=== PATIENT | female | born 2000 | race Caucasian/White ===

== ENCOUNTER 2023-09-04 13:45 | Outpatient (OUT) | payer OTHER, SELFPAY ==
[2023-09-04 14:26] LABS: HCG Quantitative <1 mIU/mL
== END 2023-09-04 13:46 | disposition home or self-care (01) ==
LOC: LAB 13:52
PROVIDERS: Visit Provider Obstetrics & Gynecology
DX: Z51.89 Encounter for other specified aftercare (principal); O03.9 Complete or unspecified spontaneous abortion without complication
CPT/HCPCS: 36415; 84702

== ENCOUNTER 2023-10-26 20:41 | Outpatient (REF) | payer OTHER, SELFPAY ==
--- OUTSIDE RECORDS SUMMARY | 2023-10-26 20:45 | XMS_ITS | CCD ---
Author Name Unknown Address [address] [facility] [address] [place] [address] Organization [facility] Care Team Providers Care Casino Surveillance Officer Name Role Phone REQUEST, DR NONE LISTED Primary Care Unavaila van SUAREZ, DR AMADOR Admitting Unavailable ERICK, DR AMADOR Attending Unavailable ERICK, DR AMADOR Consulting Unavailable Barb Woodard Unavailable Russ Vaughn MD Primary Care Provider [phone] RUSS VAUGHN Attending Unavailable RUSS VAUGHN Referring Unavailable RUSS VAUGHN Primary Care Unavailable CELINA PARKER Attending Unavailable CELINA PARKER Attending Unavailable Medications Current Medications Medication Drug Class(es) Dates Sig (Normalized) Sig (Original) hydrOXYzine pamoate 25 mg oral capsule (1 source) Antihistamine Start: 09-09-2023 take 1 capsule by mouth three times daily as needed for anxiety, then take 3 capsules by mouth once daily as needed for anxiety hydrOXYzine (VistariL) 25 mg capsule Indications: Generalized anxiety disorder Take 1 capsule (25 mg total) by mouth 3 (three) times a day as needed for anxiety. Max 3 per day 90 capsule 0 09/09/2023 Active metoclopramide 10 mg oral tablet (1 source) Dopamine-2 Receptor Antagonist Start: 07-22-2023 Reglan 10 MG 1 Tablet Orally 2-3 times per day prn nausea and vomiting Jul, Active omeprazole 20 mg delayed release oral capsule (1 source) Proton Pump Inhibitor take 1 capsule by mouth in the morning Omeprazole 20 MG TAKE 1 CAPSULE BY MOUTH IN THE MORNING Oral for 30 Days Active PARoxetine hydrochloride 20 mg oral tablet (2 sources) Serotonin Reuptake Inhibitor Start: 10-08-2023 take 1 tablet by mouth in the morning PARoxetine (PAXIL) 20 mg tablet Indications: Generalized anxiety disorder Take 1 tablet (20 mg total) by mouth in the morning. 90 tablet 2 10/08/2023 Active Start: 09-09-2023 End: 10-08-2023 take 1 tablet by mouth in the morning PARoxetine (PAXIL) 10 mg tablet Indications: Generalized anxiety disorder Take 1 tablet (10 mg total) by mouth in the morning. 30 tablet 2 09/09/2023 10/08/2023 Discontinued Completed/Discontinued Medications Medication Drug Class(es) Dates Sig (Normalized) Sig (Original) Ondansetron (1 source) Serotonin-3 Receptor Antagonist Start: 06-19-2023 Zofran 4 MG 1 tablet ODT tid prn 15 Jun, 2023 Not-Taking Problems Active Problems Problem Classification Problem Date Documented Da te Episodic/Chronic Abdominal pain (1 source) Unspecified abdominal pain; Translations: [UNSPECIFIED ABDOMINAL PAIN] Onset: 10-01-2022 Episodic Anxiety disorders (4 sources) Generalized anxiety disorder; Translations: [Generalized anxiety disorder] Onset: 02-06-2023 10-08-2023 Chronic Blindness and vision defects (1 source) Visual impairment; Translations: [Unspecified visual loss] Onset: 02-06-2023 02-06-2023 Chronic Esophageal disorders (2 sources) Gastro-esophageal reflux disease without esophagitis; Translations: [Gastroesophageal reflux disease] Onset: 10-01-2022 02-06-2023 Chronic Mood disorders (1 source) Depressive disorder; Translations: [Depression] Onset: 02-06-2023 02-06-2023 Chronic Nausea and vomiting (5 sources) Nausea with vomiting, unspecified; Translations: [NAUSEA WITH VOMITING UNSPECIFIED] Onset: 09-25-2022 Episodic Screening and history of mental health and substance abuse codes (1 source) Personal history of nicotine dependence; Translations: [PERSONAL HISTORY OF NICOTINE DEPEND] Onset: 10-01-2022 Episodic Substance-related disorders (1 source) Cannabis use, unspecified, uncomplicated; Translations: [CANNABIS USE UNS UNCOMPLICATED] Onset: 10-01-2022 Episodic Past or Other Problems Problem Classification Problem Date Documented Da te Episodic/Chronic Allergic reactions (1 source) Eczema; Translations: [Dermatitis, unspecified] Onset: 02-06-2023 02-06-2023 Episodic Mood disorders (1 source) Mood disorders Onset: 10-02-2022 2 Results Test Name Value Interpretation Reference Range Facil ity AMYLASEon 09-25-2022 Amylase [Catalytic activity/Vol] 56 U/L Normal 25-115 [facility] Comment on above: Performed By: #### A MY, CMP, LIPA #### [facility] [address] [address] [address] Hanh Cervantes CBC AUTO DIFFon 09-25-2022 BASO # 0.1 103/ul Normal 0.0-0.1 [facility] Comment on above: Performed By: #### C BC #### [facility] [address] [place] [address] Dr. Hanh Cervantes Basophils/100 WBC (Bld) 0.5 % Normal 0.2-2.0 [facility] Comment on above: Performed By: #### C BC #### [facility] [address] [place] [address] Dr. Hanh Cervantes EO # 0.1 103/ul Normal 0.0-0.7 [facility] Comment on above: Performed By: #### C BC #### [facility] [address] [place] [address] Dr. Hanh Cervantes Eosinophils/100 WBC (Bld) 0.5 % Critically low 0.9-7.0 [facility] Comment on above: Performed By: #### C BC #### [facility] [address] [place] [address] Dr. Hanh Cervantes Erythrocyte distribution width (RBC) [Ratio] 12.4 % Normal 11.0-15.0 [facility] Comment on above: Performed By: #### C BC #### [facility] [address] [place] [address] Dr. Hanh Cervantes Hematocrit (Bld) [Volume fraction] 42.1 % Normal 36.0-48.0 [facility] Comment on above: Performed By: #### C BC #### [facility] [address] [place] [address] Dr. Hanh Cervantes Hemoglobin (Bld) [Mass/Vol] 14.3 g/dL Normal 12.0-16.0 [facility] Comment on above: Performed By: #### C BC #### [facility] [address] [address] [address] Hanh Cervantes IG # 0.04 10e3/ul Critically high 0.00-0.03 [facility] Comment on above: Performed By: #### C BC #### [facility] [address] [place] [address] Dr. Hanh Cervantes IG % 0.3 % Normal 0.0-0.5 [facility] Comment on above: Performed By: #### C BC #### [facility] [address] [place] [address] Dr. Hanh Cervantes LYMPH # 1.1 103/ul Critically low 1.2-3.8 [facility] Comment on above: Performed By: #### C BC #### [facility] [address] [place] [address] Dr. Hanh Cervantes Lymphocytes/100 WBC (Bld) 9.7 % Critically low 20.5-60.0 [facility] Comment on above: Performed By: #### C BC #### [facility] [address] [place] [address] Dr. Hanh Cervantes MANUAL DIFF REQ NO Normal [facility] Comment on above: Performed By: #### C BC #### [facility] [address] [place] [address] Dr. Hanh Cervantes MCH (RBC) [Entitic mass] 28.9 pg Normal 26.7-34.0 [facility] Comment on above: Performed By: #### C BC #### [facility] [address] [place] [address] Dr. Hanh Cervantes MCHC (RBC) [Mass/Vol] 34.0 g/dL Normal 29.9-35.2 [facility] Comment on above: Performed By: #### C BC #### [facility] [address] [place] [address] Dr. Hanh Cervantes MCV (RBC) [Entitic vol] 85.2 fL Normal 81.0-99.0 [facility] Comment on above: Performed By: #### C BC #### [facility] [address] [address] [address] Hanh Cervantes MONO # 0.5 103/ul Normal 0.3-0.8 [facility] Comment on above: Performed By: #### C BC #### [facility] [address] [address] [address] Hanh Cervantes Monocytes/100 WBC (Bld) 4.4 % Normal 1.7-12.0 [facility] Comment on above: Performed By: #### C BC #### [facility] [address] [place] [address] Dr. Hanh Cervantes NEUT # 9.9 103/ul Critically high 1.4-6.5 [facility] Comment on above: Performed By: #### C BC #### [facility] [address] [place] [address] Dr. Hanh Cervantes Neutrophils/100 WBC (Bld) 84.6 % Critically high 43.0-75.0 [facility] Comment on above: Performed By: #### C BC #### [facility] [address] [place] [address] Dr. Hanh Cervantes Platelet mean volume (Bld) [Entitic vol] 10.1 fL Normal 9.5-13.5 [facility] Comment on above: Performed By: #### C BC #### [facility] [address] [place] [address] Dr. Hanh Cervantes PLT 368 103/ul Normal 150-450 [facility] Comment on above: Performed By: #### C BC #### [facility] [address] [place] [address] Dr. Hanh Cervantes RBC 4.94 106/ul Normal 4.20-5.40 [facility] Comment on above: Performed By: #### C BC #### [facility] [address] [place] [address] Dr. Hanh Cervantes WBC 11.7 103/ul Critically high 4.0-11.0 [facility] Comment on above: Performed By: #### C BC #### [facility] [address] [place] [address] Dr. Hanh Cervantes LIPASEon 09-25-2022 Lipase [Catalytic activity/Vol] 82.0 U/L Normal 73.0-393.0 [facility] Comment on above: Performed By: #### A MY, CMP, LIPA #### [facility] [address] [address] [address] Hanh Cervantes PROF 14(COMP METB)on 022 Albumin [Mass/Vol] 4.6 g/dL Normal 3.4-5.0 [facility] Comment on above: Performed By: #### A MY, CMP, LIPA #### [facility] [address] [address] [address] Hanh Cervantes Albumin/Globulin [Mass ratio] 1.1 {ratio} Normal [facility] Comment on above: Performed By: #### A MY, CMP, LIPA #### [facility] [address] [address] [address] Hanh Cervantes ALP [Catalytic activity/Vol] 88 U/L Normal 46-116 [facility] Comment on above: Performed By: #### A MY, CMP, LIPA #### [facility] [address] [address] [address] Hanh Cervantes ALT [Catalytic activity/Vol] 45 U/L Normal 14-59 [facility] Comment on above: Performed By: #### A MY, CMP, LIPA #### [facility] [address] [address] [address] Hanh Cervantes Anion gap [Moles/Vol] 14.7 mmol/L Normal [facility] Comment on above: Performed By: #### A MY, CMP, LIPA #### [facility] [address] [address] [address] Hanh Cervantes AST [Catalytic activity/Vol] 24 U/L Normal 15-37 [facility] Comment on above: Performed By: #### A MY, CMP, LIPA #### [facility] [address] [address] [address] Hanh Cervantes Bilirubin [Mass/Vol] 0.6 mg/dL Normal 0.2-1.0 [facility] Comment on above: Performed By: #### A MY, CMP, LIPA #### [facility] [address] [address] [address] Hanh Cervantes Calcium [Mass/Vol] 9.4 mg/dL Normal 8.5-10.1 [facility] Comment on above: Performed By: #### A MY, CMP, LIPA #### [facility] [address] [place] [address] Dr. Hanh Cervantes Chloride [Moles/Vol] 100 mmol/L Normal 98-107 [facility] Comment on above: Performed By: #### A MY, CMP, LIPA #### [facility] [address] [place] [address] Dr. Hanh Cervantes CO2 [Moles/Vol] 25.9 mmol/L Normal 21.0-32.0 [facility] Comment on above: Performed By: #### A MY, CMP, LIPA #### [facility] [address] [place] [address] Dr. Hanh Cervantes Creatinine [Mass/Vol] 0.78 mg/dL Normal 0.55-1.02 [facility] Comment on above: Performed By: #### A MY, CMP, LIPA #### [facility] [address] [place] [address] Dr. Hanh Cervantes EGFR-AF ALBANIAN >60 Normal >=60 [facility] Comment on above: Performed By: #### A MY, CMP, LIPA #### [facility] [address] [place] [address] Dr. Hanh Cervantes EGFR-NON AF ALBANIAN >60 Normal >=60 [facility] Comment on above: Performed By: #### A MY, CMP, LIPA #### [facility] [address] [place] [address] Dr. Hanh Cervantes Globulin (S) [Mass/Vol] 4.3 g/dL Normal [facility] Comment on above: Performed By: #### A MY, CMP, LIPA #### [facility] [address] [place] [address] Dr. Hanh Cervantes Glucose [Mass/Vol] 117 mg/dL Critically high 74-106 [facility] Comment on above: Performed By: #### A MY, CMP, LIPA #### [facility] [address] [address] [address] Hanh Cervantes Potassium [Moles/Vol] 3.6 mmol/L Normal 3.5-5.1 [facility] Comment on above: Performed By: #### A MY, CMP, LIPA #### [facility] [address] [address] [address] Hanh Cervantes Protein [Mass/Vol] 8.9 g/dL Critically high 6.4-8.2 [facility] Comment on above: Performed By: #### A MY, CMP, LIPA #### [facility] [address] [address] [address] Hanh Cervantes Sodium [Moles/Vol] 137 mmol/L Normal 136-145 [facility] Comment on above: Performed By: #### A MY, CMP, LIPA #### [facility] [address] [address] [address] Hanh Cervantes Urea nitrogen [Mass/Vol] 9.0 mg/dL Normal 7.0-18.0 [facility] Comment on above: Performed By: #### A MY, CMP, LIPA #### [facility] [address] [address] [address] Hanh Cervantes Urea nitrogen/Creatinine [Mass ratio] 11.5 mg/mg Normal [facility] Comment on above: Performed By: #### A MY, CMP, LIPA #### [facility] [address] [address] [address] Hanh Cervantes Vital Signs Date Time Vital Sign Value Performing Clinician Facility 07-22-2023 16:40-0400 Body height 160.02 cm Barb Woodard Other [facility] 07-22-2023 16:40-0400 Body mass index (BMI) [Ratio] 27.99 kg/m2 Barb Woodard Other [facility] 07-22-2023 16:40-0400 Body temperature 99.7 [degF] Barb Woodard Other [facility] 07-22-2023 16:40-0400 Body weight 71.67 kg Barb Woodard Other [facility] 07-22-2023 16:40-0400 Diastolic blood pressure 83 mm[Hg] Barb Woodard Other [facility] 07-22-2023 16:40-0400 Respiratory rate 18 /min Barb Woodard Other [facility] Other 07-22-2023 16:40-0400 SaO2% (BldA) [Mass fraction] 99 % Barb Woodard Other [facility] Other 07-22-2023 16:40-0400 Systolic blood pressure 119 mm[Hg] Barb Woodard Other [facility] Other Encounters Encounter Date Encounter Type Care Provider Facility Start: 10-26-2023 End: 10-26-2023 ambulatory CELINA KEITH Not Available Start: 10-08-2023 ambulatory [facility] Start: 10-08-2023 End: 10-08-2023 Office outpatient visit 15 minutes Russ Vaughn MD Work Phone: [facility] Comment on above: Generalized anxiety disorder Start: 08-31-2023 End: 08-31-2023 ambulatory CELINA KEITH Not Available Start: 07-22-2023 End: 07-22-2023 ambulatory Barb Yamilet Other [facility] Start: 07-22-2023 Office outpatient vi sit 15 minutes Barb Woodard [facility] Start: 09-25-2022 End: 09-25-[address] NONE LISTED REQUEST Facility: Procedures Date Procedure Procedure Detail Performing Clinician Start: 10-02-2022 Adult depression screening assessment Russ Vaughn MD Work Phone: Plan of Treatment Date Care Activity Detail Author Start: 05-18-2027 DTaP,Tdap and Td Vaccines (8 - Td or Tdap) DTaP,Tdap and Td Vaccines (8 - Td or Tdap) [facility] Start: 09-09-2024 Tobacco Screening Tobacco Screening [facility] Start: 08-25-2024 Adult BMI Screening Adult BMI Screen ing [facility] Start: 10-02-2023 Depression Screening Depression Scre ening [facility] Start: 06-05-2023 Influenza vaccination Influenza Vacc ine [facility] Start: 2021 Screening for malign ant neoplasm of cervix Pap Smear [facility] Start: 2018 Adult BMI Follow Up Plan Adult BMI Follow Up Plan [facility] Start: 2000 Screening for Chlamy yuli trachomatis Chlamydia Screening [facility] Immunizations Immunization Date Immunization Notes Care Provider Fa maicol 05-18-2017 meningococcal polysaccharide (groups A, C, Y and W-135) diphtheria toxoid conjugate vaccine (MCV4P) Russ Vaughn MD Work Phone: [facility] 05-18-2017 tetanus toxoid, redu al diphtheria toxoid, and acellular pertussis vaccine, adsorbed Russ Vaughn MD Work Phone: [facility] 06-16-2012 hepatitis A vaccine, pediatric/adolescent dosage, 2 dose schedule Russ Vaughn MD Work Phone: [facility] 06-16-2012 human papilloma viru s vaccine, quadrivalent Russ Vaughn MD Work Phone: [facility] 06-16-2012 tetanus toxoid, redu al diphtheria toxoid, and acellular pertussis vaccine, adsorbed Russ Vaughn MD Work Phone: [facility] 05-08-2005 diphtheria, tetanus toxoids and acellular pertussis vaccine, unspecified formulation Russ Vaughn MD Work Phone: [facility] 05-08-2005 measles, mumps and rubella virus vaccine Russ Vaughn MD Work Phone: [facility] 05-08-2005 pneumococcal conjuga te vaccine, 7 valent Russ Vaughn MD Work Phone: [facility] 05-08-2005 poliovirus vaccine, inactivated Russ Vaughn MD Work Phone: [facility] 05-30-2003 varicella virus vaccine Kris Vaughn MD Work Phone: [facility] Work Phone: 04-14-2001 diphtheria, tetanus toxoids and acellular pertussis vaccine, unspecified formulation Russ Vaughn MD Work Phone: [facility] 04-14-2001 haemophilus influenz ae type b vaccine, conjugate unspecified formulation Russ Vaughn MD Work Phone: [facility] 04-14-2001 measles, mumps and rubella virus vaccine Russ Vaughn MD Work Phone: [facility] 2000 diphtheria, tetanus toxoids and acellular pertussis vaccine, unspecified formulation Russ Vaughn MD Work Phone: [facility] 2000 hepatitis B vaccine, pediatric or pediatric/adolescent dosage Russ Vaughn MD Work Phone: [facility] 2000 poliovirus vaccine, inactivated Russ Vaughn MD Work Phone: [facility] 2000 diphtheria, tetanus toxoids and acellular pertussis vaccine, unspecified formulation Russ Vaughn MD Work Phone: [facility] 2000 haemophilus influenz ae type b vaccine, conjugate unspecified formulation Russ Vaughn MD Work Phone: [facility] 2000 hepatitis B vaccine, pediatric or pediatric/adolescent dosage Russ Vaughn MD Work Phone: [facility] 2000 poliovirus vaccine, inactivated Russ Vaughn MD Work Phone: [facility] 2000 diphtheria, tetanus toxoids and acellular pertussis vaccine, unspecified formulation Russ Vaughn MD Work Phone: [facility] 2000 haemophilus influenz ae type b vaccine, conjugate unspecified formulation Russ Vaughn MD Work Phone: [facility] 2000 hepatitis B vaccine, pediatric or pediatric/adolescent dosage Russ Vaughn MD Work Phone: [facility] 2000 poliovirus vaccine, unspecified formulation Russ Vaughn MD Work Phone: [facility] 2000 hepatitis B vaccine, pediatric or pediatric/adolescent dosage Russ Vaughn MD Work Phone: [facility] NEGATED: Highlighted row has not occurred!10-16-2022 Influenza Vaccine, Quadrivalent, Adjuvanted Russ Vaughn MD Work Phone: [facility] Comment on above: Deferred: Patient de cision Payers Date Payer Category Payer Private Health Insurance [id number] 2022 Private Health Insurance [facility] [id number] 2022-Present [phone] [address] [address] [place] [address] [id number] 2000 Unknown [id number] 2000 Unknown [id number] 2000 Unknown [id number] 1974 Unknown [id number] 1959 Self-pay Social History Date Type Detail Facility Unknown if ever smoked [facility] Other Start: 09-09-2023 End: 10-08-2023 Sex Assigned At [facility] Start: 10-02-2022 Tobacco smoking stat [facility] Ex-smoker [facility] End: 10-05-2020 History of tobacco use Current smoker [facility] End: 10-05-2020 History of tobacco use Cigarette Smoker [facility] Start: 10-02-2022 Tobacco use and exposure Smokeless tobacco non-user [facility] Start: 10-08-2023 Alcohol intake Current drinke r of alcohol (finding) [facility] Start: 09-09-2023 End: 10-08-2023 History of Social function [facility] How hard is it for y ou to pay for the very basics like food, housing, medical care, and heating Not very hard [facility] Adolescent depressio n screening assessment 0 [facility] Start: 10-02-2022 Alcohol Comment rarely [facility] Start: 2000 Sex Assigned At Not on file P [facility] History of Present illness Narrative 10-08-2023 Russ Vaughn MD - 10/08/2023 7:45 AM EST Note Date & Type Note Facility 10-08-2023 History of Presen t illness Narrative Images from the original note were not included. [address] [place] [id number] Patient: Yolanda Villanueva Date of : 2000 Encounter Date: 10/08/2023 SUBJECTIVE: Chief Complaint: Chief Complaint Patient presents with Anxiety Patient ID: Yolanda Villanueva is a 23 y.o. female. Here today for interval anxiety and mood follow-up No acute concerns, has been adherent to her Paxil 10 mg q.day. Since last month has only needed hydroxyzine twice and helped subside the anxiety symptoms. Initially noticed Paxil to be slightly activating in now providing great benefit in improving her sleep and mood. The following portions of the patient's history were reviewed and updated as appropriate: allergies, current medications, past family history, past medical history, past social history, past surgical history and problem list. PHYSICAL EXAMINATION: There were no vitals filed for this visit. Physical Exam Constitutional: Appearance: She is well-developed. She is not ill-appearing. HENT: Head: Normocephalic and atraumatic. Nose: Nose normal. Eyes: General: No scleral icterus. Extraocular Movements: Extraocular movements intact. Pupils: Pupils are equal, round, and reactive to light. Musculoskeletal: Cervical back: Normal range of motion. Neurological: Mental Status: She is alert and oriented to person, place, and time. Psychiatric: Mood and Affect: Mood normal. Behavior: Behavior normal. Thought Content: Thought content normal. Judgment: Judgment normal. ASSESSMENT/PLAN: Yolanda was seen today for anxiety. Diagnoses and all orders for this visit: Generalized anxiety disorder - PARoxetine (PAXIL) 20 mg tablet; Take 1 tablet (20 mg total) by mouth in the morning. Recently started Paxil September 2023, anxiety and mood symptoms improving. Increase Paxil from 10 to 20 mg today Follow-up in 3 months or sooner if needed. Video Visit via Real-time Synchronous Audiovisual Provider Location: [facility] [address] [place] [id number] Patient Location: Patient's home Video Visit Consent Statement: I discussed risks, benefits, and alternatives of a real-time synchronous audiovisual consultation with the patient (and any accompanying persons) including the risks that the patient's personal health details and medical records will be discussed over real-time, synchronous, interactive video/audio/telecommunication technology, the visit will not be recorded without the express consent of both the provider and the patient, and that there are some limitations compared to [id number] evaluations. The patient consented to the presence of additional virtual and/or in-person participants. We elected to proceed. RUSS VAUGHN MD Family Medicine Physician [facility] / [facility] 10/08/23 This note was completed with voice recognition software. The document was reviewed for errors however some may still be present. Please do not hesitate to contact/Epic msg the author to verify any questions/concerns. documented in this encounter [facility] Evaluation note 07-22-2023 Note Date & Type Note Facility 07-22-2023 Evaluation note Encounter Date Diagnosis Assessment Notes Jul, Nausea and vomiting, unspecified vomiting type (ICD-10 - R11.2) Drink plenty fluids, get plenty of rest. Take the Reglan as prescribed as needed for nausea and vomiting. Follow-up with your GI specialist as soon as possible. Go to the ER for worsening symptoms or concerns. May return to use work tomorrow. Patient is instructed that she needs to follow-up with GI. Patient verbalizes understanding states she has been having difficulty getting time off work to go to the doctor. Patient declines urinalysis, declines test, denies suspicion of [facility] Other Evaluation note Note Date & Type Note Facility Evaluation note Diagnosis Generalized anxiety disorder documented in this encounter [facility] History general Narrative - Reported Note Date & Type Note Facility History general Narrative - Reported Type Medical History Hiatal hernia Medical History ulcers Surgical History double scope 2022 [facility] Other Instructions Note Date & Type Note Facility Instructions Not on filedocumented in this en counter [facility] Summary Purpose Family History No Family History Records FoundNo Family History Records FoundNo Family History Records Found Advance Directives No Advanced Directives Records FoundNo Advanced Directives Records FoundNo Advanced Directives Records Found Additional Source Comments INFORMATION SOURCE (unrecogn ized section and content) DATE CREATED AUTHOR 10/01/2022 [facility] DATE CREATED AUTHOR AUTHOR'S ORGANIZ ATION 10/12/2023 [facility] DATE CREATED AUTHOR AUTHOR'S ORGANIZ ATION 10/26/2023 [facility] EPIC REASON FOR VISIT (unrecogniz ed section and content) Reason Comments Anxiety Care Teams (unrecognized sec tion and content) [employer] Surveillance Officer Relationship Specialty Start Date End Date Russ Vaughn MD [address] [address] PCP - General Internal Medicine 04/10/23 FOR RECORDS PERTAINING TO PATIENTS WHO ARE OR HAVE BEEN ENROLLED IN A CHEMICAL DEPENDENCY/SUBSTANCEABUSE PROGRAM, SOME INFORMATION MAY BE OMITTED. This clinical summary was aggregated from multiple sources. Caution should be exercised in using it in the provision of clinical care. This summary normalizes information from multiple sources, and as a consequence, information in this document may materially change the coding, format and clinical context of patient data. In addition, data may be omitted in some cases. CLINICAL DECISIONS SHOULD BE BASED ON THE PRIMARY CLINICAL RECORDS. [employer] [facility]. provides no warranty or guarantee of the accuracy or completeness of information in this document.
[2023-10-29 13:10] LABS: Age Gdln ACOG Testing Note (.); IGP, rfx Aptima HPV ASCU Note (.)
== END 2023-10-26 20:42 | disposition home or self-care (01) ==
LOC: LAB 20:41
PROVIDERS: Visit Provider Obstetrics & Gynecology
DX: Z01.419 Encounter for gynecological examination (general) (routine) without abnormal findings (principal)
CPT/HCPCS: G0145

== ENCOUNTER 2024-02-15 14:11 | Outpatient (OUT) | payer OTHER, SELFPAY ==
--- OUTSIDE RECORDS SUMMARY | 2024-02-15 14:23 | XMS_ITS | CCD ---
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 Name Role Phone REQUEST, DR NONE LISTED Primary Care Unavaila van SUAREZ, DR AMADOR Admitting Unavailable ERICK, DR AMADOR Attending Unavailable ERICK, DR AMADOR Consulting Unavailable Barb Woodard Unavailable Russ Vaughn MD Primary Care Provider [phone] Russ Vaughn MD Primary Care Provider SHARON VASQUEZ Attending Unavailable RODERICK, MUHAMID M Referring Unavailable RODERICK, MUHAMID M Primary Care Unavailable RODERICK, MUHAMID M Attending Unavailable RODERICK, MUHAMID M Referring Unavailable RODERICK, MUHAMID M Primary Care Unavailable RODERICK, MUHAMID M Attending Unavailable RODERICK, MUHAMID M Referring Unavailable RODERICK, MUHAMID M Primary Care Unavailable CEE JIANG Referring Unavailable CEE JIANG Attending Unavailable RODERICK, MUHAMID M Primary Care Unavailable KAITLYNN KRAMER Attending Unavailable KOSTA KEYES Attending Unavailable KOSTA KEYES Referring Unavailable RODERICK, MUHAMID M Primary Care Unavailable RODERICK, MUHAMID M Primary Care Unavailable HITESH WESTON Attending Unav ailable RODERICK, MUHAMID M Referring Unavailable RODERICK, MUHAMID M Primary Care Unavailable MEGHA SHARMA Attending Unavailable KOSTA KEYES Referring Unavailable RODERICK, MUHAMID M Primary Care Unavailable CELINA PARKER Attending Unavailable CELINA PARKER Attending Unavailable CELINA PARKER Attending Unavailable Medications Current Medications Medication Drug Class(es) Dates Sig (Normalized) Sig (Original) cyclobenzaprine hydrochloride 10 mg oral tablet (1 source) Muscle Relaxant Start: 4 take 1 tablet by mouth twice daily as needed for muscle spasms cyclobenzaprine (FLEXERIL) 10 mg tablet Take 1 tablet (10 mg total) by mouth 2 (two) times a day as needed for muscle spasms. 10 tablet 0 01/06/2024 Active hydrOXYzine pamoate 25 mg oral capsule (4 sources) Antihistamine Start: 3 take 1 capsule by mouth three times daily as needed for anxiety, then take 3 capsules by mouth once daily as needed for anxiety hydrOXYzine (VistariL) 25 mg capsule Indications: Generalized anxiety disorder Take 1 capsule (25 mg total) by mouth 3 (three) times a day as needed for anxiety. Max 3 per day 90 capsule 0 09/09/2023 Active ibuprofen 800 mg oral tablet (1 source) Nonsteroidal Anti-inflammatory Drug Start: 4 take 1 tablet by mouth every eight hours as needed for pain ibuprofen (MOTRIN) 800 mg tablet Take 1 tablet (800 mg total) by mouth every 8 (eight) hours as needed for pain. 21 tablet 0 01/06/2024 Active lidocaine 0.05 mg/mg medicated patch (1 source) Antiarrhythmic, Amide Local Anesthetic Start: 4 apply 1 dose transdermal route once daily, then apply 1 dose transdermal route every twelve hours lidocaine (LIDODERM) 5 % Place 1 patch on the skin daily. Remove & Discard patch within 12 hours or as directed by MD 30 patch 0 01/06/2024 Active methylPREDNISolone (1 source) Corticosteroid Start: 4 methylPREDNISolone (MEDROL, PENELOPE,) 4 mg tablet follow package directions 21 tablet 0 01/06/2024 Active metoclopramide 10 mg oral tablet (1 source) Dopamine-2 Receptor Antagonist Start: 3 Reglan 10 MG 1 Tablet Orally 2-3 times per day prn nausea and vomiting Jul, Active omeprazole 20 mg delayed release oral capsule (1 source) Proton Pump Inhibitor take 1 capsule by mouth in the morning Omeprazole 20 MG TAKE 1 CAPSULE BY MOUTH IN THE MORNING Oral for 30 Days Active PARoxetine hydrochloride 40 mg oral tablet (6 sources) Serotonin Reuptake Inhibitor Start: 4 End: 4 take 1 tablet by mouth in the morning PARoxetine (PAXIL) 40 mg tablet Indications: Depression, unspecified depression type Take 1 tablet (40 mg total) by mouth in the morning. 90 tablet 2 11/24/2023 Active Start: 10-08-2023 take 1 tablet by ken th in the morning PARoxetine (PAXIL) 20 mg [...] morning. 30 tablet 2 09/09/2023 10/08/2023 Discontinued tiZANidine 4 mg oral tablet (1 source) Central alpha-2 Adrenergic Agonist Start: 01-07-2024 tiZANidine (ZANAFLEX) 4 mg tablet Indications: Seizure (CMS-HCC) , Muscle cramp Use 1 tab each night scheduled. If still having muscle cramps spasm can have 1 tab in day as needed. 60 tablet 0 01/07/2024 Active 24 hr venlafaxine 37.5 mg extended release oral capsule (3 sources) Serotonin and Norepinephrine Reuptake Inhibitor Start: 11-24-2023 take 1 capsule by mouth every twenty-four hours in the morning venlafaxine XR (EFFEXOR XR) 37.5 mg 24 hr capsule Indications: Anxiety Take 1 capsule (37.5 mg total) by mouth in the morning. 90 capsule 0 11/24/2023 Active Completed/Discontinued Medications Medication Drug Class(es) Dates Sig (Normalized) Sig (Original) Ondansetron (1 source) Serotonin-3 Receptor Antagonist Start: 06-19-2023 Zofran 4 MG 1 tablet ODT tid prn 15 Jun, 2023 Not-Taking Problems Active Problems Problem Classification Problem Date Documented Da te Episodic/Chronic Abdominal pain (1 source) Unspecified abdominal pain; Translations: [UNSPECIFIED ABDOMINAL PAIN] Onset: 10-01-2022 Episodic Anxiety disorders (10 sources) Generalized anxiety disorder; Translations: [Generalized anxiety disorder] Onset: 02-06-2023 10-08-2023 Chronic Blindness and vision defects (4 sources) Visual impairment; Translations: [Unspecified visual loss] Onset: 02-06-2023 02-06-2023 Chronic Epilepsy; convulsions (1 source) Epilepsy, unspecified, not intractable, without status epilepticus; Translations: [Epilepsy, unspecified, not intractable, without status epilepticus] Onset: 01-29-2024 Chronic Epilepsy; convulsions (5 sources) Seizure; Translations: [Unspecified convulsions] Onset: 12-27-2023 01-07-2024 Episodic Esophageal disorders (6 sources) Gastro-esophageal reflux disease without esophagitis; Translations: [Gastroesophageal reflux disease] Onset: 10-01-2022 02-06-2023 Chronic Mood disorders (5 sources) Depressive disorder; Translations: [Depression] Onset: 02-06-2023 02-06-2023 Chronic Mood disorders (6 sources) Mood disorders; Translations: [Depression, unspecified] Onset: 10-02-2022 Resolved: 11-24-2023 10-02-2022 Nausea and vomiting (5 sources) Nausea with vomiting, unspecified; Translations: [NAUSEA WITH VOMITING UNSPECIFIED] Onset: 09-25-2022 Episodic Other connective tissue disease (1 source) Cramp; Translations: [Cramp and spasm] 01-07-2024 Episodic Other connective tissue disease (1 source) Cramp and spasm; Translations: [Cramp and spasm] Onset: 01-11-2024 Episodic Screening and history of mental health and substance abuse codes (1 source) Personal history of nicotine dependence; Translations: [PERSONAL HISTORY OF NICOTINE DEPEND] Onset: 10-01-2022 Episodic Spondylosis; intervertebral disc disorders; other back problems (4 sources) Lumbago with sciatica, left side; Translations: [Sciatica, left side] Onset: 01-06-2024 Episodic Substance-related disorders (1 source) Cannabis use, unspecified, uncomplicated; Translations: [CANNABIS USE UNS UNCOMPLICATED] Onset: 10-01-2022 Episodic Unclassified (1 source) Medication Problem Onset: 11-24-2023 Unclassified (1 source) New Patient Onset: 01-29-2024 Unclassified (1 source) Seizure - New Onset Onset: 12-27-2023 Unclassified (1 source) EMS Onset: 12-27-2023 Past or Other Problems Problem Classification Problem Date Documented Da te Episodic/Chronic Allergic reactions (5 sources) Eczema; Translations: [Dermatitis, unspecified] Onset: 02-06-2023 02-06-2023 Episodic Results Test Name Value Interpretation Reference Range Facility CBC AND AUTO DIFFon 01-11-20 ABSOLUTE BASOPHIL 0.1 X10E9/L Normal 0.0-0.2 [facility] Comment on above: Performed By: #### N UM #### [facility] ([id number]) [address] [place] [address] 97839 ABSOLUTE NEUTROPHIL 7.3 X10E9/L High 1.5-6.6 [facility] Comment on above: Performed By: #### N UM #### [facility] ([id number]) [address] [place] [address] 70188 Basophils/100 WBC (Bld) 0.8 % Normal [facility] Comment on above: Performed By: #### N UM #### [facility] ([id number]) [address] [place] [address] 72293 Eosinophils (Bld) [#/Vol] 0.7 10*3/uL High 0.0-0.4 [facility] Comment on above: Performed By: #### N UM #### [facility] ([id number]) [address] [place] [address] 42281 Eosinophils/100 WBC (Bld) 7.2 % Normal [facility] Comment on above: Performed By: #### N UM #### [facility] ([id number]) [address] [place] [address] 91387 Erythrocyte distribution width (RBC) [Ratio] 13.7 % Normal 11.5-15.0 [facility] Comment on above: Performed By: #### N UM #### [facility] ([id number]) [address] [place] [address] 23921 Hematocrit (Bld) [Volume fraction] 42.5 % Normal 35-47 [facility] Comment on above: Performed By: #### N UM #### [facility] ([id number]) [address] [place] [address] 47980 Hemoglobin (Bld) [Mass/Vol] 14.5 g/dL Normal 11.7-15.5 [facility] Comment on above: Performed By: #### N UM #### [facility] ([id number]) [address] [place] [address] 57063 Lymphocytes (Bld) [#/Vol] 1.4 10*3/uL Normal 1.0-3.5 [facility] Comment on above: Performed By: #### N UM #### [facility] ([id number]) [address] [place] [address] 61821 Lymphocytes/100 WBC (Bld) 14.2 % Normal [facility] Comment on above: Performed By: #### N UM #### [facility] ([id number]) [address] [place] [address] 08495 MCH (RBC) [Entitic mass] 29.5 pg Normal 27-34 [facility] Comment on above: Performed By: #### N UM #### [facility] ([id number]) [address] [place] [address] 81709 MCHC (RBC) [Mass/Vol] 34.1 g/dL Normal 32-36 [facility] Comment on above: Performed By: #### N UM #### [facility] ([id number]) [address] [place] [address] 29774 MCV (RBC) [Entitic vol] 86 fL Normal 80-100 [facility] Comment on above: Performed By: #### N UM #### [facility] ([id number]) [address] [place] [address] 25255 Monocytes (Bld) [#/Vol] 0.5 10*3/uL Normal 0-0.9 [facility] Comment on above: Performed By: #### N UM #### [facility] ([id number]) [address] [place] [address] 40749 Monocytes/100 WBC (Bld) 5.5 % Normal [facility] Comment on above: Performed By: #### N UM #### [facility] ([id number]) [address] [place] [address] 29676 Neutrophils/100 WBC (Bld) 72.3 % Normal [facility] Comment on above: Performed By: #### N UM #### [facility] ([id number]) [address] [place] [address] 24726 Platelet mean volume (Bld) [Entitic vol] 8.0 fL Normal 7-12 [facility] Comment on above: Performed By: #### N UM #### [facility] ([id number]) [address] [place] [address] 27777 Platelets (Bld) [#/Vol] 362 10*3/uL Normal 150-450 [facility] Comment on above: Performed By: #### N UM #### [facility] ([id number]) [address] [place] [address] 50391 RBC COUNT 4.93 X10E12/L Normal 3.80-5.20 [facility] Comment on above: Performed By: #### N UM #### [facility] ([id number]) [address] [place] [address] 68495 WBC (Bld) [#/Vol] 10.0 10*3/uL Normal 4.0-11.0 [facility] Comment on above: Performed By: #### N UM #### [facility] ([id number]) [address] [place] [address] 59737 CK [Catalytic activity/Vol]o n 01-11-2024 CPK 53 U/L Normal 24-170 [facility] Comment on above: Performed By: #### C BCA, CMP, 5643-2, 80629-4, 53069-0, THYR #### [facility] ([id number]) [address] [place] [address] 88507 COMPREHENSIVE METABOLIC PANE Elvin 01-11-2024 Albumin [Mass/Vol] 4.9 g/dL Normal 3.2-5.3 [facility] Comment on above: Performed By: #### N UM #### [facility] ([id number]) [address] [place] [address] 95246 ALP [Catalytic activity/Vol] 83 U/L Normal 39-130 [facility] Comment on above: Performed By: #### N UM #### [facility] ([id number]) [address] [place] [address] 54327 ALT [Catalytic activity/Vol] 104 U/L High 0-31 [facility] Comment on above: Performed By: #### N UM #### [facility] ([id number]) [address] [place] [address] 19995 Anion gap [Moles/Vol] 10 mmol/L Normal 5-15 [facility] Comment on above: Performed By: #### N UM #### [facility] ([id number]) [address] [place] [address] 12418 AST [Catalytic activity/Vol] 48 U/L High 0-41 [facility] Comment on above: Performed By: #### N UM #### [facility] ([id number]) [address] [place] [address] 92294 Bilirubin [Mass/Vol] 0.5 mg/dL Normal 0.3-1.2 [facility] Comment on above: Performed By: #### N UM #### [facility] ([id number]) [address] [place] [address] 61190 Calcium [Mass/Vol] 9.8 mg/dL Normal 8.5-10.5 [facility] Comment on above: Performed By: #### N UM #### [facility] ([id number]) [address] [place] [address] 84768 Chloride [Moles/Vol] 101 mmol/L Normal 98-109 [facility] Comment on above: Performed By: #### N UM #### [facility] ([id number]) [address] [place] [address] 60260 CO2 [Moles/Vol] 25 mmol/L Normal 22-32 [facility] Comment on above: Performed By: #### N UM #### [facility] ([id number]) [address] [place] [address] 47848 Creatinine [Mass/Vol] 0.60 mg/dL Normal 0.40-1.00 [facility] Comment on above: Result Comment: METH OD TRACEABLE TO IDMS STANDARD Performed By: #### N UM #### [facility] ([id number]) [address] [place] [address] [place] [address] eGFR (CKD-EPI) NON-RACE DEPENDENT >90 Normal >59 [facility] Comment on above: Result Comment: Reported eGFR is based on the CKD-EPI 2021 equation that does not use a race coefficient. Performed By: #### N UM #### [facility] ([id number]) [address] [place] [address] 65774 Glucose [Mass/Vol] 82 mg/dL Normal 65-99 [facility] Comment on above: Performed By: #### N UM #### [facility] ([id number]) [address] [place] [address] 51241 Potassium [Moles/Vol] 4.2 mmol/L Normal 3.5-5.0 [facility] Comment on above: Performed By: #### N UM #### [facility] ([id number]) [address] [place] [address] [place] [address] Protein [Mass/Vol] 8.5 g/dL High 6.0-8.0 [facility] Comment on above: Performed By: #### N UM #### [facility] ([id number]) [address] [place] [address] 66605 Sodium [Moles/Vol] 136 mmol/L Normal 134-146 [facility] Comment on above: Performed By: #### N UM #### [facility] ([id number]) [address] [place] [address] 64854 Urea nitrogen [Mass/Vol] 13 mg/dL Normal 5-23 [facility] Comment on above: Performed By: #### N UM #### [facility] ([id number]) [address] [place] [address] 19910 CRP [Mass/Vol]on 01-11-2024 C REACTIVE PROTEIN 1.2 mg/dL High 0.000-0.744 [facility] Comment on above: Performed By: #### N UM #### [facility] ([id number]) [address] [place] [address] 35906 LDH [Catalytic activity/Vol] on 01-11-2024 LDH 245 U/L High 100-235 [facility] Comment on above: Performed By: #### N UM #### [facility] ([id number]) [address] [place] [address] 68899 MAGNESIUMon 01-11-2024 Magnesium [Mass/Vol] 1.9 mg/dL Normal 1.8-2.6 [facility] Comment on above: Performed By: #### N UM #### [facility] ([id number]) [address] [place] [address] 36304 PHOSPHORUSon 01-11-2024 Phosphate [Mass/Vol] 3.7 mg/dL Normal 2.4-4.9 [facility] Comment on above: Performed By: #### C BCA, CMP, 5643-2, 26555-5, 35259-7, THYR #### [facility] ([id number]) [address] [place] [address] 96738 Prolactin [Mass/Vol]on 01-10 PROLACTIN 6.7 ng/mL Normal 3.3-26.7 [facility] Comment on above: Performed By: #### C BCA, CMP, 5643-2, 08067-4, 03528-6, THYR #### [facility] ([id number]) [address] [place] [address] 03676 TSH WITH REFLEXon 01-11-2024 TSH 0.74 uIU/mL Normal 0.49-4.67 [facility] Comment on above: Performed By: #### C BCA, [facility], 5643-2, 08240-7, 78960-7, THYR #### [facility] ([id number]) [address] [place] [address] 93380 CBC AND AUTO DIFFon 01-06-20 24 ABSOLUTE BASOPHIL 0.1 X10E9/L Normal 0.0-0.2 [facility] Comment on above: Performed By: #### N UM #### [facility] ([id number]) [address] [place] [address] 18153 ABSOLUTE NEUTROPHIL 9.8 X10E9/L High 1.5-6.6 [facility] Comment on above: Performed By: #### N UM #### [facility] ([id number]) [address] [place] [address] 44302 Basophils/100 WBC (Bld) 0.6 % Normal [facility] Comment on above: Performed By: #### N UM #### [facility] ([id number]) [address] [place] [address] 16888 Eosinophils (Bld) [#/Vol] 0.4 10*3/uL Normal 0.0-0.4 [facility] Comment on above: Performed By: #### N UM #### [facility] ([id number]) [address] [place] [address] 86431 Eosinophils/100 WBC (Bld) 3.4 % Normal [facility] Comment on above: Performed By: #### N UM #### [facility] ([id number]) [address] [place] [address] 98102 Erythrocyte distribution width (RBC) [Ratio] 13.8 % Normal 11.5-15.0 [facility] Comment on above: Performed By: #### N UM #### [facility] ([id number]) [address] [place] [address] 72677 Hematocrit (Bld) [Volume fraction] 40.1 % Normal 35-47 [facility] Comment on above: Performed By: #### N UM #### [facility] ([id number]) [address] [place] [address] 07236 Hemoglobin (Bld) [Mass/Vol] 13.5 g/dL Normal 11.7-15.5 [facility] Comment on above: Performed By: #### N UM #### [facility] ([id number]) [address] [place] [address] 31222 Lymphocytes (Bld) [#/Vol] 1.3 10*3/uL Normal 1.0-3.5 [facility] Comment on above: Performed By: #### N UM #### [facility] ([id number]) [address] [place] [address] 18631 Lymphocytes/100 WBC (Bld) 10.8 % Normal [facility] Comment on above: Performed By: #### N UM #### [facility] ([id number]) [address] [place] [address] 14658 MCH (RBC) [Entitic mass] 28.6 pg Normal 27-34 [facility] Comment on above: Performed By: #### N UM #### [facility] ([id number]) [address] [place] [address] 45273 MCHC (RBC) [Mass/Vol] 33.6 g/dL Normal 32-36 [facility] Comment on above: Performed By: #### N UM #### [facility] ([id number]) [address] [place] [address] 33410 MCV (RBC) [Entitic vol] 85 fL Normal 80-100 [facility] Comment on above: Performed By: #### N UM #### [facility] ([id number]) [address] [place] [address] 94952 Monocytes (Bld) [#/Vol] 0.9 10*3/uL Normal 0-0.9 [facility] Comment on above: Performed By: #### N UM #### [facility] ([id number]) [address] [place] [address] 67269 Monocytes/100 WBC (Bld) 6.9 % Normal [facility] Comment on above: Performed By: #### N UM #### [facility] ([id number]) [address] [place] [address] 02424 Neutrophils/100 WBC (Bld) 78.3 % Normal [facility] Comment on above: Performed By: #### N UM #### [facility] ([id number]) [address] [place] [address] 43349 Platelet mean volume (Bld) [Entitic vol] 7.5 fL Normal 7-12 [facility] Comment on above: Performed By: #### N UM #### [facility] ([id number]) [address] [place] [address] 48061 Platelets (Bld) [#/Vol] 354 10*3/uL Normal 150-450 [facility] Comment on above: Performed By: #### N UM #### [facility] ([id number]) [address] [place] [address] 36359 RBC COUNT 4.71 X10E12/L Normal 3.80-5.20 [facility] Comment on above: Performed By: #### N UM #### [facility] ([id number]) [address] [place] [address] 86478 WBC (Bld) [#/Vol] 12.5 10*3/uL High 4.0-11.0 [facility] Comment on above: Performed By: #### N UM #### [facility] ([id number]) [address] [place] [address] 65805 COMPREHENSIVE METABOLIC PANE Elvin 01-06-2024 Albumin [Mass/Vol] 4.4 g/dL Normal 3.2-5.3 [facility] Comment on above: Performed By: #### N UM #### [facility] ([id number]) [address] [place] [address] 89212 ALP [Catalytic activity/Vol] 60 U/L Normal 39-130 [facility] Comment on above: Performed By: #### N UM #### [facility] ([id number]) [address] [place] [address] 26273 ALT [Catalytic activity/Vol] 38 U/L High 0-31 [facility] Comment on above: Performed By: #### N UM #### [facility] ([id number]) [address] [place] [address] 29888 Anion gap [Moles/Vol] 7 mmol/L Normal 5-15 [facility] Comment on above: Performed By: #### N UM #### [facility] ([id number]) [address] [place] [address] 56657 AST [Catalytic activity/Vol] 27 U/L Normal 0-41 [facility] Comment on above: Performed By: #### N UM #### [facility] ([id number]) [address] [place] [address] 68901 Bilirubin [Mass/Vol] 0.4 mg/dL Normal 0.3-1.2 [facility] Comment on above: Performed By: #### N UM #### [facility] ([id number]) [address] [place] [address] 46658 Calcium [Mass/Vol] 9.0 mg/dL Normal 8.5-10.5 [facility] Comment on above: Performed By: #### N UM #### [facility] ([id number]) [address] [place] [address] 78017 Chloride [Moles/Vol] 103 mmol/L Normal 98-109 [facility] Comment on above: Performed By: #### N UM #### [facility] ([id number]) [address] [place] [address] 59735 CO2 [Moles/Vol] 23 mmol/L Normal 22-32 [facility] Comment on above: Performed By: #### N UM #### [facility] ([id number]) [address] [place] [address] 87508 Creatinine [Mass/Vol] 0.75 mg/dL Normal 0.40-1.00 [facility] Comment on above: Result Comment: METH OD TRACEABLE TO IDMS STANDARD Performed By: #### N UM #### [facility] ([id number]) [address] [place] [address] 78059 eGFR (CKD-EPI) NON-RACE DEPENDENT >90 Normal >59 [facility] Comment on above: Result Comment: Reported eGFR is based on the CKD-EPI 2020 equation that does not use a race coefficient. Performed By: #### N UM #### [facility] ([id number]) [address] [place] [address] 07435 Glucose [Mass/Vol] 91 mg/dL Normal 65-99 [facility] Comment on above: Performed By: #### N UM #### [facility] ([id number]) [address] [place] [address] 80072 Potassium [Moles/Vol] 3.9 mmol/L Normal 3.5-5.0 [facility] Comment on above: Performed By: #### N UM #### [facility] ([id number]) [address] [place] [address] 08257 Protein [Mass/Vol] 8.3 g/dL High 6.0-8.0 [facility] Comment on above: Performed By: #### N UM #### [facility] ([id number]) [address] [place] [address] 12567 Sodium [Moles/Vol] 133 mmol/L Low 134-146 [facility] Comment on above: Performed By: #### N UM #### [facility] ([id number]) [address] [place] [address] 91386 Urea nitrogen [Mass/Vol] 16 mg/dL Normal 5-23 [facility] Comment on above: Performed By: #### N UM #### [facility] ([id number]) [address] [place] [address] 49795 EDPROVon 01-06-2024 EDPROV HPI Chief Complaint Patient presents with Back Pain Patient states had a really bad seizure this morning, and now I have sciatica left side. HPI 23-year-old female with a history of anxiety and depression presenting due to left lower back pain has been ongoing since this morning. Patient states that she had an episode of seizure-like activity witnessed by her sister. Patient was asleep on the couch and had generalized shaking and wound up on the floor. Significant other states that this is the third time that it has happening usually happens when she is asleep. Patient has had tongue bruising but no episodes of tongue biting. Patient has not had any urinary incontinence. Patient evaluated at outside ED this morning and received muscle relaxer, steroids, and Lidoderm patches. Patient has continued to have pain that radiates down left lower extremity. Patient denies any genital numbness, patient denies any weakness or numbness. Patient does not have a history of cancer, recent steroid use, or prior back injuries. Patient denies any recent illness. Patient smokes marijuana daily but denies any other alcohol or illicitdrug use. Patient denies any other symptoms at this time. Afsaneh Coma Scale Score: 15 Patient History Past Medical History: Diagnosis Date Anxiety No past surgical history on file. No family history on file. Social History Tobacco Use Smoking status: Never Smokeless tobacco: Not on file Substance Use Topics Alcohol use: Not Currently Drug use: Yes Types: Marijuana Review of Systems Review of Systems Constitutional: Negative for chills and fever. HENT: Negative for ear pain and sore throat. Eyes: Negative for pain and visual disturbance. Respiratory: Negative for cough and shortness of breath. Cardiovascular: Negative for chest pain and palpitations. Gastrointestinal: Negative for abdominal pain and vomiting. Genitourinary: Negative for dysuria and hematuria. Musculoskeletal: Positive for back pain. Negative for arthralgias. Skin: Negative for color change and rash. Neurological: Positive for seizures. Negative for dizziness, tremors, syncope, facial asymmetry, speech difficulty, weakness, light-headedness and numbness. All other systems reviewed and are negative. Physical Exam ED Triage Vitals Temp Heart Rate Resp BP 01/06/24 1358 01/06/24 1358 01/06/24 1358 01/06/24 1358 36.9 ???C (98.4 ???F) (!) 131 18 (!) 138/98 SpO2 Temp Source Heart Rate Source Patient Position 01/06/24 1358 01/06/24 1358 01/06/24 1358 01/06/24 1358 99 % Oral Monitor Sitting BP Location FiO2 (%) 01/06/24 1358 -- Left arm Physical Exam Vitals and nursing note reviewed. Constitutional: General: She is not in acute distress. Appearance: She is well-developed. HENT: Head: Normocephalic and atraumatic. Eyes: Conjunctiva/sclera: Conjunctivae normal. Cardiovascular: Rate and Rhythm: Normal rate and regular rhythm. Heart sounds: No murmur heard. Pulmonary: Effort: Pulmonary effort is normal. No respiratory distress. Breath sounds: Normal breath sounds. Abdominal: Palpations: Abdomen is soft. Tenderness: There is no abdominal tenderness. Musculoskeletal: General: No swelling. Cervical back: Neck supple. Lumbar back: Positive left straight leg raise test. Comments: No midline spinal tenderness without any obvious deformities or step offs. TTP over L sacroiliac joint. Skin: General: Skin is warm and dry. Capillary Refill: Capillary refill takes less than 2 seconds. Neurological: Mental Status: She is alert. GCS: GCS eye subscore is 4. GCS verbal subscore is 5. GCS motor subscore is 6. Cranial Nerves: Cranial nerves 2-12 are intact. Sensory: Sensation is intact. Motor: Motor function is intact. Coordination: Coordination is intact. Gait: Gait is intact. Psychiatric: Mood and Affect: Mood normal. Procedures ED Course & MDM Diagnoses as of 01/06/24 1820 Acute left-sided low back pain with left-sided sciatica Medical Decision Making Reviewed patient's chart patient evaluated multiple times for these seizure-like activity episodes. Patient episodes seem to correlate when she is sleeping and do not sound epileptic in nature from prior chart review. Patient is already scheduled to follow-up with neurology. Patient had lab workup performed earlier today. Patient was discharged with muscle relaxer, steroids, and Lidoderm patches. On arrival patient's vital signs stable and within normal limits. Differential includes but not limited to fracture, dislocation, and sciatica. Will do x-ray and symptomatically treat. X-ray did not show any evidence of fracture or dislocation. Pain likely secondary to sciatica. Advised patient tofollow-up with neurologist as scheduled. Instructed patient to return with any new or worsening symptoms. Shared decision making with patient and agreeable with plan and discharge. Lilian Ellington (more content not included)... Normal [facility] Glucose Glucometer (BldC) [M ass/Vol]on 01-06-2024 Glucose [Mass/Vol] 85 mg/dL Normal 65-99 [facility] Lactate (P nancy) [Moles/Vol]o n 01-06-2024 LACTATE W/REFLEX 2.1 mmol/L High 0.4-2.0 [facility] Comment on above: Performed By: #### N UM #### [facility] ([id number]) [address] [place] [address] 72327 TROPONIN Ion 01-06-2024 Troponin I.cardiac [Mass/Vol] 0.01 ng/mL Normal 0.00-0.04 [facility] Comment on above: Performed By: #### N UM #### [facility] ([id number]) [address] [place] [address] 19846 CBC AND AUTO DIFFon 12-27-19 ABSOLUTE BASOPHIL 0.1 X10E9/L Normal 0.0-0.2 [facility] Comment on above: Performed By: #### C BCA, CMP, 5643-2, 32397-2, 82656-7, THYR #### [facility] ([id number]) [address] [place] [address] 87567 ABSOLUTE NEUTROPHIL 7.8 X10E9/L High 1.5-6.6 [facility] Comment on above: Performed By: #### C BCA, CMP, 5643-2, 25683-2, 45483-1, THYR #### [facility] ([id number]) [address] [place] [address] 13916 Basophils/100 WBC (Bld) 1.3 % Normal [facility] Comment on above: Performed By: #### C BCA, CMP, 5643-2, 60497-4, 42367-4, THYR #### [facility] ([id number]) [address] [place] [address] 76549 Eosinophils (Bld) [#/Vol] 0.8 10*3/uL High 0.0-0.4 [facility] Comment on above: Performed By: #### C BCA, CMP, 5643-2, 01831-3, 65490-8, THYR #### [facility] ([id number]) [address] [place] [address] 66139 Eosinophils/100 WBC (Bld) 7.8 % Normal [facility] Comment on above: Performed By: #### C QUIQUE, CMP, 5643-2, 49817-5, 42165-5, THYR #### [facility] ([id number]) [address] [place] [address] 01513 Erythrocyte distribution width (RBC) [Ratio] 13.3 % Normal 11.5-15.0 [facility] Comment on above: Performed By: #### C QUIQUE, SYED, 5643-2, 14876-2, 03053-5, THYR #### [facility] ([id number]) [address] [place] [address] 64090 Hematocrit (Bld) [Volume fraction] 38.5 % Normal 35-47 [facility] Comment on above: Performed By: #### C QUIQUE, [facility], 5643-2, 93529-7, 04967-7, THYR #### [facility] ([id number]) [address] [place] [address] 66415 Hemoglobin (Bld) [Mass/Vol] 13.2 g/dL Normal 11.7-15.5 [facility] Comment on above: Performed By: #### C QUIQUE, [facility], 5643-2, 31517-0, 79215-8, THYR #### [facility] ([id number]) [address] [place] [address] 48118 Lymphocytes (Bld) [#/Vol] 1.3 10*3/uL Normal 1.0-3.5 [facility] Comment on above: Performed By: #### C QUIQUE, CMP, 5643-2, 68805-9, 24021-0, THYR #### [facility] ([id number]) [address] [place] [address] 30461 Lymphocytes/100 WBC (Bld) 12.0 % Normal [facility] Comment on above: Performed By: #### C BCA, CMP, 5643-2, 73677-2, 24179-7, THYR #### [facility] ([id number]) [address] [place] [address] 10612 MCH (RBC) [Entitic mass] 29.7 pg Normal 27-34 [facility] Comment on above: Performed By: #### C BCA, CMP, 5643-2, 24611-5, 33029-7, THYR #### [facility] ([id number]) [address] [place] [address] 38215 MCHC (RBC) [Mass/Vol] 34.4 g/dL Normal 32-36 [facility] Comment on above: Performed By: #### Dhruv BCA, CMP, 5643-2, 15448-7, 44189-2, THYR #### [facility] ([id number]) [address] [place] [address] 75353 MCV (RBC) [Entitic vol] 87 fL Normal 80-100 [facility] Comment on above: Performed By: #### C BCA, CMP, 5643-2, 70733-6, 88466-0, THYR #### [facility] ([id number]) [address] [place] [address] 77310 Monocytes (Bld) [#/Vol] 0.6 10*3/uL Normal 0-0.9 [facility] Comment on above: Performed By: #### C BCA, CMP, 5643-2, 91554-4, 26701-4, THYR #### [facility] ([id number]) [address] [place] [address] 82241 Monocytes/100 WBC (Bld) 6.0 % Normal [facility] Comment on above: Performed By: #### Dhruv BCA, CMP, 5643-2, 89946-8, 23748-7, THYR #### [facility] ([id number]) [address] [place] [address] 90226 Neutrophils/100 WBC (Bld) 72.9 % Normal [facility] Comment on above: Performed By: #### C BCA, CMP, 5643-2, 72812-3, 24197-4, THYR #### [facility] ([id number]) [address] [place] [address] 16809 Platelet mean volume (Bld) [Entitic vol] 7.4 fL Normal 7-12 [facility] Comment on above: Performed By: #### C QUIQUE, CMP, 5643-2, 06812-5, 85614-1, THYR #### [facility] ([id number]) [address] [place] [address] 04814 Platelets (Bld) [#/Vol] 332 10*3/uL Normal 150-450 [facility] Comment on above: Performed By: #### C BCA, CMP, 5643-2, 94174-4, 99423-6, THYR #### [facility] ([id number]) [address] [place] [address] 26149 RBC COUNT 4.45 X10E12/L Normal 3.80-5.20 [facility] Comment on above: Performed By: #### C BCA, CMP, 5643-2, 29586-4, 18866-6, THYR #### [facility] ([id number]) [address] [place] [address] 50444 WBC (Bld) [#/Vol] 10.6 10*3/uL Normal 4.0-11.0 [facility] Comment on above: Performed By: #### C BCA, CMP, 5643-2, 13101-7, 50397-2, THYR #### [facility] ([id number]) [address] [place] [address] 27979 COMPREHENSIVE METABOLIC PANE Elvin 12-27-2023 Albumin [Mass/Vol] 4.3 g/dL Normal 3.2-5.3 [facility] Comment on above: Performed By: #### C BCA, CMP, 5643-2, 32886-3, 20589-1, THYR #### [facility] ([id number]) [address] [place] [address] 33096 ALP [Catalytic activity/Vol] 75 U/L Normal 39-130 [facility] Comment on above: Performed By: #### C BCA, CMP, 5643-2, 16576-3, 78481-4, THYR #### [facility] ([id number]) [address] [place] [address] 04290 ALT [Catalytic activity/Vol] 18 U/L Normal 0-31 [facility] Comment on above: Performed By: #### C BCA, CMP, 5643-2, 51956-9, 13342-1, THYR #### [facility] ([id number]) [address] [place] [address] 42684 Anion gap [Moles/Vol] 7 mmol/L Normal 5-15 [facility] Comment on above: Performed By: #### C BCA, CMP, 5643-2, 67129-0, 95977-5, THYR #### [facility] ([id number]) [address] [place] [address] 36584 AST [Catalytic activity/Vol] 27 U/L Normal 0-41 [facility] Comment on above: Performed By: #### C BCA, CMP, 5643-2, 50920-9, 97619-1, THYR #### [facility] ([id number]) [address] [place] [address] 99727 Bilirubin [Mass/Vol] 0.5 mg/dL Normal 0.3-1.2 [facility] Comment on above: Performed By: #### C BCA, CMP, 5643-2, 16778-7, 96818-0, THYR #### [facility] ([id number]) [address] [place] [address] 63370 Calcium [Mass/Vol] 8.6 mg/dL Normal 8.5-10.5 [facility] Comment on above: Performed By: #### C BCA, CMP, 5643-2, 68768-2, 35936-1, THYR #### [facility] ([id number]) [address] [place] [address] 23903 Chloride [Moles/Vol] 106 mmol/L Normal 98-109 [facility] Comment on above: Performed By: #### C BCA, CMP, 5643-2, 73415-3, 07913-3, THYR #### [facility] ([id number]) [address] [place] [address] 03045 CO2 [Moles/Vol] 22 mmol/L Normal 22-32 [facility] Comment on above: Performed By: #### C BCA, CMP, 5643-2, 79252-2, 38307-3, THYR #### [facility] ([id number]) [address] [place] [address] 66277 Creatinine [Mass/Vol] 0.70 mg/dL Normal 0.40-1.00 [facility] Comment on above: Result Comment: METH OD TRACEABLE TO IDMS STANDARD Performed By: #### C BCA, CMP, 5643-2, 23511-0, 95763-7, THYR #### [facility] ([id number]) [address] [place] [address] 72122 eGFR (CKD-EPI) NON-RACE DEPENDENT >90 Normal >59 [facility] Comment on above: Result Comment: Reported eGFR is based on the CKD-EPI 2021 equation that does not use a race coefficient. Performed By: #### C BCA, CMP, 5643-2, 00791-6, 53694-4, THYR #### [facility] ([id number]) [address] [place] [address] 19739 Glucose [Mass/Vol] 105 mg/dL High 65-99 [facility] Comment on above: Performed By: #### C BCA, CMP, 5643-2, 53074-2, 38588-5, THYR #### [facility] ([id number]) [address] [place] [address] 95214 Potassium [Moles/Vol] 3.7 mmol/L Normal 3.5-5.0 [facility] Comment on above: Performed By: #### C QUIQUE, CMP, 5643-2, 33622-5, 41946-9, THYR #### [facility] ([id number]) [address] [place] [address] 11778 Protein [Mass/Vol] 8.1 g/dL High 6.0-8.0 [facility] Comment on above: Performed By: #### C QUIQUE, CMP, 5643-2, 00931-0, 45700-8, THYR #### [facility] ([id number]) [address] [place] [address] 20374 Sodium [Moles/Vol] 135 mmol/L Normal 134-146 [facility] Comment on above: Performed By: #### C BCA, CMP, 5643-2, 69046-0, 79058-3, THYR #### [facility] ([id number]) [address] [place] [address] 28416 Urea nitrogen [Mass/Vol] 13 mg/dL Normal 5-23 [facility] Comment on above: Performed By: #### C BCA, CMP, 5643-2, 79979-4, 03504-8, THYR #### [facility] ([id number]) [address] [place] [address] BRAIN WO CONTon 4 CT BRAIN WO CONT CT BRAIN WO CONT HISTORY: A 23-year-old female with the history of the new onset of seizures. EXAM/TECHNIQUE: Multidetector spiral CT scan of brain is obtained. Multiplanar reconstruction images are reformatted. All CT scans at this facility use dose modulation, iterative reconstruction, and/or weight based dosing when appropriate to reduce radiation dose to as low as reasonably achievable. COMPARISON: None available. FINDINGS: The ventricular system is normal in size and configuration. There is normal differentiation of blank and white matters. There is no evidence of intracranial hemorrhage or acute pathology. The cerebellum and brainstem are unremarkable. No mass effect, midline shift of the structures or extra-axial fluid collections are noted. The calvarium is intact. Mucosal thickening is seen in the both maxillary sinuses with mucous retention cyst in the right maxillary sinus. Other paranasal sinuses and mastoid air cells are clear. IMPRESSION: * No evidence of intracranial hemorrhage or acute pathology. * Bilateral chronic maxillary sinusitis with the right maxillary sinus mucous retention cyst. Finalized by Tha Mooney MD on 12/27/2023 11:39 AM Normal [facility] DRUG SCREEN, URINEon 024 AMPHETAMINE/METHAMP Negative Normal NEG [facility] Comment on above: Result Comment: AMPH /METH screening cut off = 1000 ng/mL Performed By: #### D WALLS #### [facility] ([id number]) [address] [place] [address] 29451 BARBITURATES Negative Normal NEG [facility] Comment on above: Result Comment: Evonne iturates screening cut off value = 200 ng/mL Performed By: #### D WALLS #### [facility] ([id number]) [address] [place] [address] 34573 BENZODIAZEPINES Negative Normal NEG [facility] Comment on above: Result Comment: Silas odiazepines screening cut off value = 200 ng/mL Performed By: #### D WALLS #### [facility] ([id number]) [address] [place] [address] 68460 CANNABINOIDS Positive Abnormal NEG [facility] Comment on above: Result Comment: Conf irmation available upon request. Cannabinoids/THC screening cut off value = 50 ng/mL Performed By: #### D WALLS #### [facility] ([id number]) [address] [place] [address] 35073 COCAINE METABOLITE Negative Normal NEG [facility] Comment on above: Result Comment: Coca ine screening cut off value = 300 ng/mL Performed By: #### D WALLS #### [facility] ([id number]) [address] [place] [address] 27176 ECSTASY Negative Normal NEG [facility] Comment on above: Result Comment: Ecst asy screening cut off value = 500 ng/mL This report is intended for use in clinical monitoring or management of patients. Performed By: #### D WALLS #### [facility] ([id number]) [address] [place] [address] 53569 METHADONE Negative Normal [facility] Comment on above: Result Comment: Meth adone screening cut off value = 300 ng/mL. Performed By: #### D WALLS #### [facility] ([id number]) [address] [place] [address] 31173 OPIATES Negative Normal [facility] Comment on above: Result Comment: Opia kami screening cut off value = 300 ng/mL NOTE: This test is used for the detection of codeine, hydrocodone (>1000 ng/mL), morphine and hydromorphone (>900 ng/mL) in urine. Performed By: #### D WALLS #### [facility] ([id number]) [address] [place] [address] 94191 OXYCODONE Negative Normal [facility] Comment on above: Result Comment: Oxyc odone screening cut off value = 300 ng/mL NOTE: This test is used for the detection of oxycodone and oxymorphone in urine. Performed By: #### D WALLS #### [facility] ([id number]) [address] [place] [address] 96193 PHENCYCLIDINE Negative Normal NEG [facility] Comment on above: Result Comment: Phen cyclidine screening cut off value = 25 ng/mL Performed By: #### D WALLS #### [facility] ([id number]) [address] [place] [address] 23025 ETHANOLon 12-27-2023 Ethanol [Mass/Vol] mg/dL Normal 0.00-0.08 [facility] Comment on above: Result Comment: This report is intended for use in clinical monitoring or management of patients. Performed By: #### C SYED LEI, 5643-2, 54569-5, 39423-0, THYR #### [facility] ([id number]) [address] [place] [address] 73472 HCG ( test) Ql (U)o n 12-27-2023 Beta HCG ( test) Ql (U) Negative Normal NEG [facility] Comment on above: Performed By: #### 2 106-3 #### [facility] ([id number]) [address] [place] [address] 93200 MAGNESIUMon 12-27-2023 Magnesium [Mass/Vol] 2.3 mg/dL Normal 1.8-2.6 [facility] Comment on above: Performed By: #### C SYED LEI, 5643-2, 70446-8, 78018-0, THYR #### [facility] ([id number]) [address] [place] [address] 61931 THYROID PROFILEon 12-27-2023 Free T4 [Mass/Vol] 0.83 ng/dL Normal 0.61-1.60 [facility] Comment on above: Performed By: #### C QUIQUE, SYED, 5643-2, 45308-1, 88637-1, THYR #### [facility] ([id number]) [address] [place] [address] 58600 TSH 1.78 uIU/mL Normal 0.49-4.67 [facility] Comment on above: Performed By: #### C BCA, CMP, 5643-2, 69500-8, 58535-9, THYR #### [facility] ([id number]) [address] [place] [address] [place] [address] TROPONIN Ion 12-27-2023 Troponin I.cardiac [Mass/Vol] 0.02 ng/mL Normal 0.00-0.04 [facility] Comment on above: Performed By: #### C BCA, CMP, 5643-2, 42958-7, 84448-1, THYR #### [facility] ([id number]) [address] [place] [address] 53420 URN MACROSCOPIC NURon 2023 BILIRUBIN KRISTA Negative Normal NEG [facility] Comment on above: Performed By: #### N UM #### [facility] ([id number]) [address] [place] [address] [place] [address] BLOOD/HGB KRISTA Negative Normal NEG [facility] Comment on above: Performed By: #### N UM #### [facility] ([id number]) [address] [place] [address] [place] [address] GLUCOSE KRISTA Negative Normal NEG [facility] Comment on above: Performed By: #### N UM #### [facility] ([id number]) [address] [place] [address] [place] [address] KETONES KRISTA Negative Normal NEG [facility] Comment on above: Performed By: #### N UM #### [facility] ([id number]) [address] [place] [address] [place] [address] LEUKOCYTE ESTERASE KRISTA Negative Normal NEG [facility] Comment on above: Performed By: #### N UM #### [facility] ([id number]) [address] [place] [address] [place] [address] NITRITE KRISTA Negative Normal NEG [facility] Comment on above: Performed By: #### N UM #### [facility] ([id number]) [address] [place] [address] 28446 PH KRISTA 6.0 Normal 5.0-8.5 [facility] Comment on above: Performed By: #### N UM #### [facility] ([id number]) [address] [place] [address] 39609 PROTEIN KRISTA 30 mg/dL Abnormal NEG [facility] Comment on above: Performed By: #### N UM #### [facility] ([id number]) [address] [place] [address] 65000 SPECIFIC GRAVITY KRISTA 1.025 Normal 1.003-1.035 [facility] Comment on above: Performed By: #### N UM #### [facility] ([id number]) [address] [place] [address] 58698 UROBILINOGEN KRISTA 0.2 eu/dL Normal <1.1 [facility] Comment on above: Performed By: #### N UM #### [facility] ([id number]) [address] [place] [address] 96274 AMYLASEon 09-25-2022 Amylase [Catalytic activity/Vol] 56 U/L Normal 25-115 [facility] Comment on above: Performed By: #### A MY, CMP, LIPA #### [facility] [address] [place] [address] Dr. Hanh Cervantes CBC AUTO DIFFon 09-25-2022 BASO # 0.1 103/ul Normal 0.0-0.1 [facility] Comment on above: Performed By: #### C BC #### [facility] [address] [place] [address] Dr. Hanh Cervantes Basophils/100 WBC (Bld) 0.5 % Normal 0.2-2.0 [facility] Comment on above: Performed By: #### C BC #### [facility] [address] [place] [address] Dr. Hanh Cervantes EO # 0.1 103/ul Normal 0.0-0.7 [facility] Comment on above: Performed By: #### C BC #### [facility] [address] [place] [address] Dr. Hanh Cervantes Eosinophils/100 WBC (Bld) 0.5 % Critically low 0.9-7.0 [facility] Comment on above: Performed By: #### C BC #### [facility] [address] [place] [address] Dr. Hanh Cervantes Erythrocyte distribution width (RBC) [Ratio] 12.4 % Normal 11.0-15.0 [facility] Comment on above: Performed By: #### C BC #### [facility] [address] [place] [address] Dr. Hanh Cervantes Hematocrit (Bld) [Volume fraction] 42.1 % Normal 36.0-48.0 [facility] Comment on above: Performed By: #### C BC #### [facility] [address] [place] [address] Dr. Hanh Cervantes Hemoglobin (Bld) [Mass/Vol] 14.3 g/dL Normal 12.0-16.0 [facility] Comment on above: Performed By: #### C BC #### [facility] [address] [place] [address] Dr. Hanh Cervantes IG # 0.04 10e3/ul Critically high 0.00-0.03 [facility] Comment on above: Performed By: #### C BC #### [facility] [address] [place] [address] Dr. Hanh Cervantes IG % 0.3 % Normal 0.0-0.5 [facility] Comment on above: Performed By: #### C BC #### [facility] [address] [place] [address] Dr. Hanh Cervantes LYMPH # 1.1 103/ul Critically low 1.2-3.8 [facility] Comment on above: Performed By: #### C BC #### [facility] [address] [place] [address] Dr. Hanh Cervantes Lymphocytes/100 WBC (Bld) 9.7 % Critically low 20.5-60.0 [facility] Comment on above: Performed By: #### C BC #### [facility] [address] [place] [address] Dr. Hanh Cervantes MANUAL DIFF REQ NO Normal [facility] Comment on above: Performed By: #### C BC #### [facility] [address] [place] [address] Dr. Hanh Cervantes MCH (RBC) [Entitic mass] 28.9 pg Normal 26.7-34.0 [facility] Comment on above: Performed By: #### C BC #### [facility] Laboratory [address] [place] [address] Dr. Hanh Cervantes MCHC (RBC) [Mass/Vol] 34.0 g/dL Normal 29.9-35.2 [facility] Comment on above: Performed By: #### C BC #### [facility] [address] [place] [address] Dr. Hanh Cervantes MCV (RBC) [Entitic vol] 85.2 fL Normal 81.0-99.0 [facility] Comment on above: Performed By: #### C BC #### [facility] [address] [place] [address] Dr. Hanh Cervantes MONO # 0.5 103/ul Normal 0.3-0.8 [facility] Comment on above: Performed By: #### C BC #### [facility] [address] [place] [address] Dr. Hanh Cervantes Monocytes/100 WBC (Bld) 4.4 % Normal 1.7-12.0 [facility] Comment on above: Performed By: #### C BC #### [facility] [address] [place] [address] Dr. Hanh Cervantes NEUT # 9.9 103/ul Critically high 1.4-6.[address] [facility] Comment on above: Performed By: #### C BC #### [facility] [address] [place] [address] Dr. Hanh Cervantes Neutrophils/100 WBC (Bld) 84.6 % Critically high 43.0-75.0 [facility] Comment on above: Performed By: #### C BC #### [facility] [address] [place] [address] Dr. Hanh Cervantes Platelet mean volume (Bld) [Entitic vol] 10.1 fL Normal 9.5-13.5 [facility] Comment on above: Performed By: #### C BC #### [facility] [address] [place] [address] Dr. Hanh Cervantes PLT 368 103/ul Normal 150-450 [facility] Comment on above: Performed By: #### C BC #### [facility] [address] [place] [address] Dr. Hanh Cervantes RBC 4.94 106/ul Normal 4.20-5.40 [facility] Comment on above: Performed By: #### C BC #### [facility] [address] [place] [address] Dr. Hanh Cervantes WBC 11.7 103/ul Critically high 4.0-11.0 [facility] Comment on above: Performed By: #### C BC #### [facility] [address] [place] [address] Dr. Hanh Cervantes LIPASEon 09-25-2022 Lipase [Catalytic activity/Vol] 82.0 U/L Normal 73.0-393.0 [facility] Comment on above: Performed By: #### A MY, CMP, LIPA #### [facility] [address] [place] [address] Dr. Hanh Cervantes PROF 14(COMP METB)on 022 Albumin [Mass/Vol] 4.6 g/dL Normal 3.4-5.0 [facility] Comment on above: Performed By: #### A MY, CMP, LIPA #### [facility] [address] [place] [address] Dr. Hanh Cervantes Albumin/Globulin [Mass ratio] 1.1 {ratio} Normal [facility] Comment on above: Performed By: #### A MY, CMP, LIPA #### [facility] [address] [address] [address] Hanh Cervantes ALP [Catalytic activity/Vol] 88 U/L Normal 46-116 [facility] Comment on above: Performed By: #### A MY, CMP, LIPA #### [facility] [address] [place] [address] Dr. Hanh Cervantes ALT [Catalytic activity/Vol] 45 U/L Normal 14-59 [facility] Comment on above: Performed By: #### A MY, CMP, LIPA #### [facility] [address] [place] [address] Dr. Hanh Cervantes Anion gap [Moles/Vol] 14.7 mmol/L Normal [facility] Comment on above: Performed By: #### A MY, CMP, LIPA #### [facility] [address] [place] [address] Dr. Hanh Cervantes AST [Catalytic activity/Vol] 24 U/L Normal 15-37 [facility] Comment on above: Performed By: #### A MY, CMP, LIPA #### [facility] [address] [place] [address] Dr. Hanh Cervantes Bilirubin [Mass/Vol] 0.6 mg/dL Normal 0.2-1.0 [facility] Comment on above: Performed By: #### A MY, CMP, LIPA #### [facility] [address] [place] [address] Dr. Hanh Cervantes Calcium [Mass/Vol] 9.4 mg/dL Normal 8.5-10.1 [facility] Comment on above: Performed By: #### A MY, CMP, LIPA #### [facility] [address] [place] [address] Dr. Hanh Cervantes Chloride [Moles/Vol] 100 mmol/L Normal 98-107 [facility] Comment on above: Performed By: #### A MY, CMP, LIPA #### [facility] [address] [address] [address] Hanh Cervantes CO2 [Moles/Vol] 25.9 mmol/L Normal 21.0-32.0 [facility] Comment on above: Performed By: #### A MY, CMP, LIPA #### [facility] [address] [address] [address] Hanh Cervantes Creatinine [Mass/Vol] 0.78 mg/dL Normal 0.55-1.02 [facility] Comment on above: Performed By: #### A MY, CMP, LIPA #### [facility] [address] [address] [address] Hanh Cervantes EGFR-AF MEXICAN >60 Normal >=60 [facility] Comment on above: Performed By: #### A MY, CMP, LIPA #### [facility] [address] [address] [address] Hanh Cervantes EGFR-NON AF MEXICAN >60 Normal >=60 [facility] Comment on above: Performed By: #### A MY, CMP, LIPA #### [facility] [address] [address] [address] Hanh Cervantes Globulin (S) [Mass/Vol] 4.3 g/dL Normal [facility] Comment on above: Performed By: #### A MY, CMP, LIPA #### [facility] [address] [address] [address] Hanh Cervantes Glucose [Mass/Vol] 117 mg/dL Critically high 74-106 [facility] Comment on above: Performed By: #### A MY, CMP, LIPA #### [facility] [address] [address] [address] Hanh Cervantes Potassium [Moles/Vol] 3.6 mmol/L Normal 3.5-5.1 [facility] Comment on above: Performed By: #### A MY, CMP, LIPA #### [facility] [address] [address] [address] Hanh Cervantes Protein [Mass/Vol] 8.9 g/dL Critically high 6.4-8.2 [facility] Comment on above: Performed By: #### A MY, CMP, LIPA #### [facility] [address] [address] [address] Hanh Cervantes Sodium [Moles/Vol] 137 mmol/L Normal 136-145 [facility] Comment on above: Performed By: #### A MY, CMP, LIPA #### [facility] [address] [place], [place] [address] Dr. Hanh Cervantes Urea nitrogen [Mass/Vol] 9.0 mg/dL Normal 7.0-18.0 [facility] Comment on above: Performed By: #### A MY, CMP, LIPA #### [facility] [address] [address] [address] Hanh Cervantes Urea nitrogen/Creatinine [Mass ratio] 11.5 mg/mg Normal [facility] Comment on above: Performed By: #### A MY, CMP, LIPA #### [facility] [address] [address] [address] Hanh Cervantes Vital Signs Date Time Vital Sign Value Performing Clinician Facility 07-22-2023 16:40-0400 Body height 160.02 cm Barb Woodard Other [facility] Other 07-22-2023 16:40-0400 Body mass index (BMI) [Ratio] 27.99 kg/m2 Barb Yamilet Other [facility] Other 07-22-2023 16:40-0400 Body temperature 99.7 [degF] Barb Woodard Other [facility] Other 07-22-2023 16:40-0400 Body weight 71.67 kg Barb Yamilet Other [facility] Other 07-22-2023 16:40-0400 Diastolic blood pressure 83 mm[Hg] Barb Yamilet Other [facility] Other 07-22-2023 16:40-0400 Respiratory rate 18 /min Barb Woodard Other [facility] Other 07-22-2023 16:40-0400 SaO2% (BldA) [Mass fraction] 99 % Barb oWodard Other [facility] Other 07-22-2023 16:40-0400 Systolic blood pressure 119 mm[Hg] Barb Woodard Other [facility] Other Encounters Encounter Date Encounter Type Care Provider Facility Start: 02-02-2024 End: 02-02-2024 ambulatory CELINA PARKER Not Available Start: 01-29-2024 End: 01-29-2024 ambulatory [facility] Start: 01-11-2024 End: 01-12-[address] [facility] Start: 01-11-2024 End: 01-11-2024 ambulatory [facility] Start: 01-07-2024 Orders Only Russ Vaughn MD Work Phone: [facility] Comment on above: Seizure (CMS-HCC) (P rimary Dx); Muscle cramp Start: 01-06-2024 Emergency department patient visit [facility] Start: 01-06-2024 End: 01-06-2024 Emergency department patient visit [facility] Start: 01-06-2024 End: 01-06-2024 Emergency department patient visit [facility] Start: 12-28-2023 Telephone encounter [facility] Comment on above: New Patient Appt. Start: 12-27-2023 End: 12-28-2023 [facility] Start: 11-24-2023 End: 11-24-2023 ambulatory [facility] Start: 11-24-2023 End: 11-24-2023 Office outpatient visit 25 minutes Russ Vaughn MD Work Phone: [facility] Comment on above: Anxiety (Primary Dx) ; Depression, unspecified depression type Start: 10-26-2023 End: 10-26-2023 ambulatory CELINA KEITH Not Available Start: 10-08-2023 ambulatory RUSS VAUGHN [facility] Start: 10-08-2023 End: 10-08-2023 Office outpatient visit 15 minutes Russ Vaughn MD Work Phone: [facility] Comment on above: Generalized anxiety disorder Start: 08-31-2023 End: 08-31-2023 ambulatory CELINA KEITH Not Available Start: 07-22-2023 End: 07-22-2023 ambulatory Barb Woodard Other [facility] Other Start: 07-22-2023 Office outpatient vi sit 15 minutes Barb Woodard [facility] Start: 09-25-2022 End: 09-25-[address] NONE LISTED REQUEST Facility: Procedures Date Procedure Procedure Detail Performing Clinician Start: 11-24-2023 Adult depression screening assessment Russ Vaughn MD Work Phone: Start: 10-02-2022 Adult depression screening assessment Russ Vaughn MD Work Phone: Plan of Treatment Date Care Activity Detail Author Start: 05-18-2027 DTaP,Tdap and Td Vaccines (8 - Td or Tdap) DTaP,Tdap and Td Vaccines (8 - Td or Tdap) [facility] Start: 01-05-2025 Adult BMI Screening Adult BMI Screen ing [facility] Start: 01-05-2025 Tobacco Screening Tobacco Screening [facility] Start: 12-26-2024 Adult BMI Screening Adult BMI Screen ing [facility] Start: 12-26-2024 Tobacco Screening Tobacco Screening [facility] Start: 11-24-2024 Depression Screening Depression Scre ening [facility] Start: 11-24-2024 Tobacco Screening Tobacco Screening [facility] Start: 09-09-2024 Tobacco Screening Tobacco Screening [facility] Start: 08-25-2024 Adult BMI Screening Adult BMI Screen ing [facility] Start: 06-05-2024 Influenza vaccination Influenza Vacc ine [facility] Start: 01-29-2024 End: 01-29-2024 Patient encounter procedure 01/29/2024 1:30 PM EDT Office Visit [facility] [address] [place] [address] 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, 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 [employer] [address] [place] [address] Megha Sharma MD [address] [place] [address], [address] [address] [facility] Start: 01-07-2024 End: 01-06-2025 CBC W Auto Differential panel - Blood CBC auto differential Lab Routine Seizure ([facility]) Muscle cramp Expected: 01/07/2024 (Approximate), Expires: 01/06/2025 [facility] Work Phone: Comment on above: Expected: 01/07/2024 (Approximate), Expires: 01/06/2025 Start: 01-07-2024 End: 01-06-2025 Comprehensive metabolic 2000 panel - Serum or Plasma Comprehensive metabolic panel Lab Routine Seizure ([facility]) Muscle cramp Expected: 01/07/2024 (Approximate), Expires: 01/06/2025 [facility] [employer] Comment on above: Expected: 01/07/2024 (Approximate), Expires: 01/06/2025 Start: 01-07-2024 End: 01-06-2025 Magnesium [Mass/volume] in Serum or Plasma Magnesium Lab Routine Seizure ([facility]) Muscle cramp Expected: 01/07/2024 (Approximate), Expires: 01/06/2025 [facility] Comment on above: Expected: 01/07/2024 (Approximate), Expires: 01/06/2025 Start: 01-07-2024 End: 01-06-2025 Phosphate [Mass/volume] in Serum or Plasma Phosphorus Lab Routine Seizure ([facility]) Muscle cramp Expected: 01/07/2024 (Approximate), Expires: 01/06/2025 [facility] Comment on above: Expected: 01/07/2024 (Approximate), Expires: 01/06/2025 Start: 01-07-2024 End: 01-06-2025 TSH with Reflex TSH with Reflex Lab Routine Seizure ([facility]) Muscle cramp Expected: 01/07/2024 (Approximate), Expires: 01/06/2025 [facility] Comment on above: Expected: 01/07/2024 (Approximate), Expires: 01/06/2025 Start: 10-02-2023 Depression Screening Depression Scre ening [facility] Start: 06-05-2023 Influenza vaccination Influenza Vacc ine [facility] Start: 2021 Screening for malign ant neoplasm of cervix Pap Smear [facility] Start: 2018 Adult BMI Follow Up Plan Adult BMI Follow Up Plan [facility] Start: 2000 Screening for Chlamy yuli trachomatis Chlamydia Screening [facility] End: 01-06-2025 C-reactive protein C-reactive protein Lab Routine Seizure ([facility]) Muscle cramp 1 Occurrences starting 01/07/2024 until 01/06/2025 [facility] Comment on above: 1 Occurrences starti ng 01/07/2024 until 01/06/2025 End: 01-06-2025 CK Total CK Total Lab Routine Seizure ([facility]) Muscle cramp 1 Occurrences starting 01/07/2024 until 01/06/2025 [facility] Comment on above: 1 Occurrences starti ng 01/07/2024 until 01/06/2025 End: 01-06-2025 LDH LDH Lab Routine Seizure ([facility]) Muscle cramp 1 Occurrences starting 01/07/2024 until 01/06/2025 [facility] Comment on above: 1 Occurrences starti ng 01/07/2024 until 01/06/2025 End: 01-06-2025 Prolactin level Prolactin level Lab Routine Seizure ([facility]) Muscle cramp 1 Occurrences starting 01/07/2024 until 01/06/2025 [facility] Comment on above: 1 Occurrences starti ng 01/07/2024 until 01/06/2025 Immunizations Immunization Date Immunization Notes Care Provider Shade milian 05-18-2017 meningococcal polysaccharide (groups A, C, Y and W-135) diphtheria toxoid conjugate vaccine (MCV4P) Russ Vaughn MD Work Phone: [facility] 05-18-2017 tetanus toxoid, redu al diphtheria toxoid, and acellular pertussis vaccine, adsorbed Russ Vaughn MD Work Phone: [facility] 06-16-2012 hepatitis A vaccine, pediatric/adolescent dosage, 2 dose schedule Russ Vaughn MD Work Phone: [facility] 06-16-2012 human papilloma viru s vaccine, quadrivalent Russ Vaughn MD Work Phone: [facility] 06-16-2012 tetanus toxoid, redu al diphtheria toxoid, and acellular pertussis vaccine, adsorbed Russ Vaughn MD Work Phone: [facility] 05-08-2005 diphtheria, tetanus toxoids and acellular pertussis vaccine, unspecified formulation Russ Vaughn MD Work Phone: [facility] 05-08-2005 measles, mumps and rubella virus vaccine Russ Vaughn MD Work Phone: [facility] 05-08-2005 pneumococcal conjuga te vaccine, 7 valent Russ Vaughn MD Work Phone: [facility] 05-08-2005 poliovirus vaccine, inactivated Russ Vaughn MD Work Phone: [facility] 05-30-2003 varicella virus vaccine Kris Vaughn MD Work Phone: [facility] Work Phone: 04-14-2001 diphtheria, tetanus toxoids and acellular pertussis vaccine, unspecified formulation Russ Vaughn MD Work Phone: [facility] 04-14-2001 haemophilus influenz ae type b vaccine, conjugate unspecified formulation Rsus Vaughn MD Work Phone: [facility] 04-14-2001 measles, mumps and rubella virus vaccine Russ Vaughn MD Work Phone: [facility] 2000 diphtheria, tetanus toxoids and acellular pertussis vaccine, unspecified formulation Russ Vaughn MD Work Phone: [facility] 2000 hepatitis B vaccine, pediatric or pediatric/adolescent dosage Russ Vaughn MD Work Phone: [facility] 2000 poliovirus vaccine, inactivated Russ Vaughn MD Work Phone: [facility] 2000 diphtheria, tetanus toxoids and acellular pertussis vaccine, unspecified formulation Russ Vaughn MD Work Phone: [facility] 2000 haemophilus influenz ae type b vaccine, conjugate unspecified formulation Russ Vaughn MD Work Phone: [facility] 2000 hepatitis B vaccine, pediatric or pediatric/adolescent dosage Russ aVughn MD Work Phone: [facility] 2000 poliovirus vaccine, inactivated Russ Vaughn MD Work Phone: [facility] 2000 diphtheria, tetanus toxoids and acellular pertussis vaccine, unspecified formulation Russ Vaughn MD Work Phone: [facility] 2000 haemophilus influenz ae type b vaccine, conjugate unspecified formulation Russ Vaughn MD Work Phone: [facility] 2000 hepatitis B vaccine, pediatric or pediatric/adolescent dosage Russ Vaughn MD Work Phone: [facility] 2000 poliovirus vaccine, unspecified formulation Russ Vaughn MD Work Phone: [facility] 2000 hepatitis B vaccine, pediatric or pediatric/adolescent dosage Russ Vaughn MD Work Phone: [facility] NEGATED: Highlighted row has not occurred!10-16-2022 Influenza Vaccine, Quadrivalent, Adjuvanted Russ Vaughn MD Work Phone: [facility] Comment on above: Deferred: Patient de cision Payers Date Payer Category Payer Private Health Insurance [id number] 2022 Private Health Insurance [facility] [employer] [id number] 2022-Present [phone] [address] [address] [place] [address] [id number] 2000 Unknown [id number]. [id number] 2000 Unknown [id number]. 2.6 2000 Unknown [id number] [id number]. 2.1285 2000 Unknown [id number]. 2.1286 2000 Unknown [id number] [id number]. 2.6 2000 Unknown [id number] [id number]. 2.6 2000 Unknown [id number] [id number]. 2.1286 2000 Unknown [id number] [id number]. 2.1286 2000 Unknown [id number] [id number]. 2.9 2000 Unknown [id number] [id number]. 2.9 2000 Unknown [id number]. 2.1259 1974 Unknown [id number]. [id number] 1959 Self-pay Social History Date Type Detail Facility Unknown if ever smoked [facility] Other Start: 10-08-2023 End: 01-06-2024 Sex Assigned At [facility] Start: 10-02-2022 Tobacco smoking stat us MIIS Ex-smoker [facility] End: 10-05-2020 History of tobacco use Current smoker [facility] End: 10-05-2020 History of tobacco use Cigarette Smoker [facility] Start: 10-02-2022 Tobacco use and exposure Smokeless tobacco non-user [facility] Start: 10-08-2023 End: 01-06-2024 Alcohol intake Current drinker of alcohol (finding) [facility] Start: 10-08-2023 End: 01-06-2024 History of Social function [facility] How hard is it for y ou to pay for the very basics like food, housing, medical care, and heating Not very hard [facility] Adolescent depressio n screening assessment 0 [facility] Start: 10-02-2022 Alcohol Comment rarely [facility] Start: 2000 Sex Assigned At Not on file [facility] Clinical Notes 07-22-2023 to 12-28-2023 Telephone Encounter - [facility] - 12/28/2023 8:48 AM EDTTelephone Encounter - [facility] - 12/28/2023 8:48 AM EDTMbishnu Vaughn MD - 11/24/2023 7:45 AM EST Note Date & Type Note Facility 12-28-2023 Miscellaneous Notes Formattin g of this note might be different from the original. Please ask the following questions to the new patient that you are schedulin. IS THIS DUE TO AN ACCIDENT? - No 2. IS THIS WORKER'S COMP? - No 3. WHAT INSURANCE? - [facility] CHOICE PL[facility] 4. HAVE YOU EVER BEEN SEEN BY A NEUROLOGIST BEFORE? IF YES, WHO AND WHEN? IS THIS A SECOND OPINION? - No 5. PATIENT IS SCHEDULED ON/WITH: - 01/29/2024 at 1:30pm with Dr. Sharma in [place]. Patient's requested Merna and requested . documented in this encounter [facility] 12-28-2023 Telephone encount er Note Please ask the following questions to the new patient that you are schedulin. IS THIS DUE TO AN ACCIDENT? - No 2. IS THIS WORKER'S COMP? - No 3. WHAT INSURANCE? - [employer] 4. HAVE YOU EVER BEEN SEEN BY A NEUROLOGIST BEFORE? IF YES, WHO AND WHEN? IS THIS A SECOND OPINION? - No 5. PATIENT IS SCHEDULED ON/WITH: - 01/29/2024 at 1:30pm with Dr. Sharma in [place]. Patient's requested Merna and requested . [facility] 11-24-2023 History of Presen t illness Narrative Images from the original note were not included. [address] [place] [id number] Patient: Yolanda Villanueva Date of : 2000 Encounter Date: 11/24/2023 SUBJECTIVE: Chief Complaint: Chief Complaint Patient presents with Medication Problem Anxiety medications not working Patient ID: Yolanda Villanueva is a 23 y.o. female. Here today for interval anxiety and mood follow-up. Since being on the Paxil her mood has been stable and anxiety symptoms fairly controlled. However recently started work again and noticing symptoms of anxiety read. Patient expressed concern about ADHD symptoms however she is able to complete all tasks, stay focus both at home and at work. Has good relationships at work no acute stressors there. No acute stressors at home. No changes in living arrangements or personal relationships. No financial security reported. The following portions of the patient's history [...] normal. ASSESSMENT/PLAN: Yolanda was seen today for medication problem. Diagnoses and all orders for this visit: Anxiety - venlafaxine XR (EFFEXOR XR) 37.5 mg 24 hr capsule; Take 1 capsule (37.5 mg total) by mouth in the morning. Depression, unspecified depression type - PARoxetine (PAXIL) 40 mg tablet; Take 1 tablet (40 mg total) by mouth in the morning. Continue Paxil 40 mg per day. Add venlafaxine for anxiety symptom control Okay to utilize hydroxyzine for rescue medicine and anxiety episodes. Follow-up in 3 months or sooner if needed. Video Visit via Real-time Synchronous Audiovisual Provider Location: [facility] [address] [place] [phone] Patient Location: Patient's home Video Visit Consent [...] that there are some limitations compared to iozc-zt-[id number] evaluations. The patient consented to the presence of additional virtual and/or in-person participants. We elected to proceed. RUSS VAUGHN MD Family Medicine Physician [facility] / [facility] 11/24/23 This note was completed with voice recognition software. The document was reviewed for errors however some may still be present. Please do not hesitate to contact/Epic [facility] the author to verify any questions/concerns. documented in this encounter [facility] 10-08-2023 History of Presen t illness Narrative Images from the original note were not included. [address] [place] [phone] Patient: Yolanda Villanueva Date of : [...] Visit via Real-time Synchronous Audiovisual Provider Location: [facility] [address] [place] [phone] Patient Location: Patient's home Video Visit Consent [...] that there are some limitations compared to skkd-ix-koux evaluations. The patient consented to the presence of additional virtual and/or in-person participants. We elected to proceed. RUSS VAUGHN MD Family Medicine Physician [facility] / [facility] 10/08/23 This note was completed with voice recognition software. The document was reviewed for errors however some may still be present. Please do not hesitate to contact/Epic msg the author to verify any questions/concerns. documented in this encounter [employer] 07-22-2023 Evaluation note Encounter Date Diagnosis Assessment [...] declines urinalysis, declines test, denies suspicion of Zhui Xin Other Evaluation note* Diagnosis Generalized anxiety disorder documented in this encounter [employer] System[employer]* Diagnosis Anxiety- Primary Anxiety state, unspecified Depression, unspecified depression type documented in this encounter [employer] [facility]* Diagnosis Seizure (CMS-HCC)- Primary Other convulsions Muscle cramp Cramp of limb documented in this encounter [employer] general Narrative - Reported* Type Description Date Medical History Hiatal hernia Medical History ulcers Surgical History double scope 2022 Zhui Xin Other InstructionsNot on filedocumented in this encounter [facility] this [facility] Summary Purpose Family History No Family History Records FoundNo Family History Records FoundNo Family History Records FoundNo Family History Records FoundNo Family History Records Found Advance Directives No Advanced Directives Records FoundNo Advanced Directives Records FoundNo Advanced Directives Records FoundNo Advanced Directives Records FoundNo Advanced Directives Records Found Additional Source Comments INFORMATION SOURCE (unrecogn ized section and content) DATE CREATED AUTHOR 10/01/2022 [facility] DATE CREATED AUTHOR AUTHOR'S ORGANIZ ATION 01/11/2024 [facility] DATE CREATED AUTHOR AUTHOR'S ORGANIZ ATION 01/21/2024 [facility] DATE CREATED AUTHOR AUTHOR'S ORGANIZ ATION 01/31/2024 [facility] DATE CREATED AUTHOR AUTHOR'S ORGANIZ ATION 02/04/2024 [facility] Specialists EPIC REASON FOR VISIT (unrecogniz ed section and content) Reason Comments Anxiety Reason Comments Medication Problem Anxiety medications not working Reason Onset Date Comments New Patient Appt. 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 [employer] [facility]. provides no warranty or guarantee of the accuracy or completeness of information in this document.
[2024-02-15 15:45] LABS: Estimated Average Glucose 94 mg/dL; Glycohemoglobin A1C 4.9 % (4.5-6.2)
[2024-02-15 16:04] LABS: Free T3 2.46 pg/mL (2.18-3.98); Glucose 85 mg/dL (74-106); Thyroid Stimulating Hormone 0.362 uIU/mL (0.358-3.740); Total Protein 7.9 g/dL (6.4-8.2)
[2024-02-15 16:26] LABS: Free T4 0.91 ng/dL (0.76-1.46)
[2024-02-16 04:17] LABS: Progesterone 16.5 ng/mL (.); Sex Horm Binding Glob, Serum 89.1 nmol/L (24.6-122.0)
[2024-02-16 10:10] LABS: Insulin 9.6 uIU/mL (2.6-24.9)
[2024-02-16 15:08] LABS: Antithrombin Activity 113 % (75-135); Protein C-Functional 136 % (73-180); Protein S, Free 70 % (61-136); Protein S, Total 70 % (60-150)
[2024-02-16 16:09] LABS: Anticardiolipin Ab, IgG, Qn <9 GPL U/mL (0-14)
[2024-02-16 17:09] LABS: Lupus Reflex Interpretation Comment: (.); PTT-LA 30.5 sec (0.0-43.5); Thyroglobulin Antibody <1.0 IU/mL (0.0-0.9); Thyroid Peroxidase (TPO) Ab 10 IU/mL (0-34); dRVVT 34.5 sec (0.0-47.0)
[2024-02-17 06:09] LABS: Beta-2 Glycoprotein I Ab, IgA <9 (0-25); Beta-2 Glycoprotein I Ab, IgG <9 (0-20); Beta-2 Glycoprotein I Ab, IgM <9 (0-32)
[2024-02-17 16:10] LABS: Estrone, Serum 167 pg/mL (27-231)
[2024-02-18 11:11] LABS: Reverse T3, Serum 25.7 ng/dL (9.2-24.1)
== END 2024-02-15 14:12 | disposition home or self-care (01) ==
LOC: LAB 14:11
PROVIDERS: Visit Provider Obstetrics & Gynecology
DX: O03.9 Complete or unspecified spontaneous abortion without complication (principal); Z51.89 Encounter for other specified aftercare; E34.9 Endocrine disorder, unspecified; D69.9 Hemorrhagic condition, unspecified
CPT/HCPCS: 36415; 81241; 82306; 82530; 82627; 82670; 82679; 82728; 82947; 83036; 83525; 84144; 84155; 84260; 84270; 84402; 84403; 84432; 84436; 84439; 84443; 84481; 84482; 84681; 85300; 85303; 85305; 85306; 86146; 86147; 86376; 86800

== ENCOUNTER 2024-02-27 09:21 | Emergency (ER) | payer OTHER, SELFPAY ==
[2024-02-27 09:28] VITALS: BP 119/65; PULSE 78; TEMP 37.3; O2SAT 100; BMI 28.3
[2024-02-27 09:30] VITALS: BP 119/65; PULSE 73; TEMP 37.3; O2SAT 100; BMI 25.8
--- NOTE | 2024-02-27 09:31 | PC.NURSE ---
patient reports she had a positive at home test on january 27. patient states she then began bleeding and bled for 3 weeks but is still having nausea and is still showing positive at home tests. Patient states, I just need to know if i am or not so I can go on with my life.
--- OUTSIDE RECORDS SUMMARY | 2024-02-27 09:39 | XMS_ITS ---
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 Name Role Phone REQUEST, DR NONE LISTED Primary Care Unavaila van SUAREZ, DR AMADOR Admitting Unavailable ERICK, DR AMADOR Attending Unavailable ERICK, DR AMADOR Consulting Unavailable Barb Woodard Unavailable Russ Vaughn MD Primary Care Provider [phone] Russ Vaughn MD Primary Care Provider SHARON VASQUEZ Attending Unavailable RODERICK, MUHAMID M Referring Unavailable RODERICK, MUHAMID M Primary Care Unavailable RODERICK, MUHAMID M Attending Unavailable RODERICK, MUHAMID M Referring Unavailable RODERICK, MUHAMID M Primary Care Unavailable RODERICK, MUHAMID M Attending Unavailable RODERICK, MUHAMID M Referring Unavailable RODERICK, MUHAMID M Primary Care Unavailable CEE JIANG Referring Unavailable CEE JIANG Attending Unavailable CELINA PARKER Attending Unavailable CELINA PARKER Attending Unavailable CELINA PARKER Attending Unavailable RODERICK, MUHAMID M Primary Care Unavailable KAITLYNN KRAMER Attending Unavailable KOSTA KEYES Attending Unavailable KOSTA KEYES Referring Unavailable RODERICK, MUHAMID M Primary Care Unavailable RODERICK, MUHAMID M Primary Care Unavailable HITESH WESTON Attending Unav ailable RODERICK, MUHAMID M Referring Unavailable RODERICK, MUHAMID M Primary Care Unavailable MAHSA, EHAD Attending Unavailable KOSTA KEYES Referring Unavailable RODERICK, MUHAMID M Primary Care Unavailable MAHSA, EHAD Attending Unavailable MAHSA, EHAD Referring Unavailable RODERICK, MUHAMID M Primary Care Unavailable Encounters Encounter Date Encounter Type Care Provider Facility Start: 02-23-2024 End: 02-24-2024 ambulatory [facility] Start: 02-02-2024 End: 02-02-2024 ambulatory CELINA KEITH Not Available Start: 01-29-2024 End: 01-29-2024 ambulatory [facility] Start: 01-11-2024 End: 01-12-2024 ambulatory [facility] Start: 01-11-2024 End: 01-11-2024 ambulatory [facility] Start: 01-07-2024 Orders Only Russ Vaughn MD Work Phone: [facility] Comment on above: Seizure (CMS-HCC) (P rimary Dx); Muscle cramp Start: 01-06-2024 Emergency department patient visit [facility] Start: 01-06-2024 End: 01-06-2024 Emergency department patient visit [facility] Start: 01-06-2024 End: 01-06-2024 Emergency department patient visit [facility] Start: 12-28-2023 Telephone encounter [facility] Comment on above: New Patient Appt. Start: 12-27-2023 End: 12-28-2023 Emergency department patient visit [facility] Start: 11-24-2023 End: 11-24-2023 ambulatory [facility] Start: 11-24-2023 End: 11-24-2023 Office outpatient visit 25 minutes Russ Vaughn MD Work Phone: [facility] Comment on above: Anxiety (Primary Dx) ; Depression, unspecified depression type Start: 10-26-2023 End: 10-26-2023 ambulatory CELINA KEITH Not Available Start: 10-08-2023 ambulatory [facility] Start: 10-08-2023 End: 10-08-2023 Office outpatient visit 15 minutes Russ Vaughn MD Work Phone: [facility] Comment on above: Generalized anxiety disorder Start: 08-31-2023 End: 08-31-2023 ambulatory CELINA PARKER Not Available Start: 07-22-2023 End: 07-22-2023 ambulatory Barb Woodard Other [employer] Other Start: 07-22-2023 Office outpatient vi sit 15 minutes Barb Woodard [facility] Start: 09-25-2022 End: 09-25-2022 ambulatory NONE LISTED REQUEST Facility: Immunizations Immunization Date Immunization Notes Care Provider Fa [facility] 05-18-2017 meningococcal polysaccharide (groups A, C, Y and W-135) diphtheria toxoid conjugate vaccine (MCV4P) Russ Vaughn MD Work Phone: [facility] 05-18-2017 tetanus toxoid, redu al diphtheria toxoid, and acellular pertussis vaccine, adsorbed Russ Vaughn MD Work Phone: [facility] 06-16-2012 hepatitis A vaccine, pediatric/adolescent dosage, 2 dose schedule Russ Vaughn MD Work Phone: [facility] 06-16-2012 human papilloma viru s vaccine, quadrivalent Russ Vaughn MD Work Phone: [facility] 06-16-2012 tetanus toxoid, redu al diphtheria toxoid, and acellular pertussis vaccine, adsorbed Russ Vaughn MD Work Phone: [facility] 05-08-2005 diphtheria, tetanus toxoids and acellular pertussis vaccine, unspecified formulation Russ Vaughn MD Work Phone: [facility] 05-08-2005 measles, mumps and rubella virus vaccine Russ Vaughn MD Work Phone: [facility] 05-08-2005 pneumococcal conjuga te vaccine, 7 valent Russ Vaughn MD Work Phone: [facility] 05-08-2005 poliovirus vaccine, inactivated Russ Vaughn MD Work Phone: [facility] 05-30-2003 varicella virus vaccine Kris Vaughn MD Work Phone: [facility] Work Phone: 04-14-2001 diphtheria, tetanus toxoids and acellular pertussis vaccine, unspecified formulation Russ Vaughn MD Work Phone: [facility] 04-14-2001 haemophilus influenz ae type b vaccine, conjugate unspecified formulation Russ Vaughn MD Work Phone: [facility] 04-14-2001 measles, mumps and rubella virus vaccine Russ Vaughn MD Work Phone: [facility] 2000 diphtheria, tetanus toxoids and acellular pertussis vaccine, unspecified formulation Russ Vaughn MD Work Phone: [facility] 2000 hepatitis B vaccine, pediatric or pediatric/adolescent dosage Russ Vaughn MD Work Phone: [facility] 2000 poliovirus vaccine, inactivated Russ Vaughn MD Work Phone: [facility] 2000 diphtheria, tetanus toxoids and acellular pertussis vaccine, unspecified formulation Russ Vaughn MD Work Phone: [facility] 2000 haemophilus influenz ae type b vaccine, conjugate unspecified formulation Russ Vaughn MD Work Phone: [facility] 2000 hepatitis B vaccine, pediatric or pediatric/adolescent dosage Russ Vaughn MD Work Phone: [facility] 2000 poliovirus vaccine, inactivated Russ Vaughn MD Work Phone: [facility] 2000 diphtheria, tetanus toxoids and acellular pertussis vaccine, unspecified formulation Russ Vaughn MD Work Phone: [facility] 2000 haemophilus influenz ae type b vaccine, conjugate unspecified formulation Russ Vaughn MD Work Phone: [facility] 2000 hepatitis B vaccine, pediatric or pediatric/adolescent dosage Russ Vaughn MD Work Phone: [facility] 2000 poliovirus vaccine, unspecified formulation Russ Vaughn MD Work Phone: [facility] [email or web address] 2000 hepatitis B vaccine, pediatric or pediatric/adolescent dosage Russ Vaughn MD Work Phone: [facility] [email or web address] NEGATED: Highlighted row has not occurred!10-16-2022 Influenza Vaccine, Quadrivalent, Adjuvanted Russ [facility] MD [facility] Comment on above: Deferred: Patient de cision Medications Current Medications Medication Drug Class(es) Dates [...] ODT tid prn 15 Jun, 2023 Not-Taking Payers Date Payer Category Payer Private Health Insurance [id number] 2022 Private Health Insurance [facility] PL[facility] [id number] 2022-Present [phone] [address] [address] [place] [address] [id number] 2000 Unknown [id number] [id number]. 2.128 2000 Unknown [id number] [id number]. 2.1286 2000 Unknown [id number] 2.16.840.1.740466.3.579. 2.1286 2000 Unknown [id number] 2.16.840.1.829117.3.579. 2.1259 2000 Unknown [id number] 2.16.840.1.526065.3.579. 2.1259 2000 Unknown [id number] 2.16.840.1.364565.3.579. 2.1259 2000 Unknown [id number] 2.16.840.1.030399.3.579. 2.1286 2000 Unknown [id number] 2.16.840.1.683806.3.579. 2.1286 2000 Unknown [id number] 2.16.840.1.336801.3.579. 2.128 2000 Unknown [id number] 2.16.840.1.109262.3.579. 2.1286 2000 Unknown [id number] 2.16.840.1.173136.3.579. 2.1286 2000 Unknown [id number] [id number]. 2.1286 1974 Unknown [id number] [id number]. 2.593 1959 Self-pay Plan of Treatment Date Care Activity Detail Author Start: 05-18-2027 DTaP,Tdap and Td Vaccines (8 - Td or Tdap) DTaP,Tdap and Td Vaccines (8 - Td or Tdap) [facility] Start: 01-05-2025 Adult BMI Screening Adult BMI Screen ing [facility] Start: 01-05-2025 Tobacco Screening Tobacco Screening [facility] Start: 12-26-2024 Adult BMI Screening Adult BMI Screen ing [facility] Start: 12-26-2024 Tobacco Screening Tobacco Screening [facility] Start: 11-24-2024 Depression Screening Depression Scre ening [facility] Start: 11-24-2024 Tobacco Screening Tobacco Screening [facility] Start: 09-09-2024 Tobacco Screening Tobacco Screening [facility] Start: 08-25-2024 Adult BMI Screening Adult BMI Screen ing [facility] Start: 06-05-2024 Influenza vaccination Influenza Vacc ine [facility] Start: 01-29-2024 End: 01-29-2024 Patient encounter procedure 01/29/2024 1:30 PM EDT Office Visit [facility] [address] [facility] [address] Kosta Keyes, COREROOM FOUNDRY LABORER-SLIVER MACHINE OPERATOR [address] [place] [address] Faith Sharma MD [address] [place] [address], [address] [address] [facility] Start: 01-07-2024 End: 01-06-2025 CBC W Auto Differential panel - Blood CBC auto differential Lab Routine Seizure ([facility]) Muscle cramp Expected: 01/07/2024 (Approximate), Expires: 01/06/2025 Quantified Skin Work Phone: Comment on above: Expected: 01/07/2024 (Approximate), Expires: 01/06/2025 Start: 01-07-2024 End: 01-06-2025 Comprehensive metabolic 2000 panel - Serum or Plasma Comprehensive metabolic panel Lab Routine Seizure ([facility]) Muscle cramp Expected: 01/07/2024 (Approximate), Expires: 01/06/2025 [facility] Comment on above: Expected: 01/07/2024 (Approximate), Expires: 01/06/2025 Start: 01-07-2024 End: 01-06-2025 Magnesium [Mass/volume] in Serum or Plasma Magnesium Lab Routine Seizure ([facility]) Muscle cramp Expected: 01/07/2024 (Approximate), Expires: 01/06/2025 [facility] Comment on above: Expected: 01/07/2024 (Approximate), Expires: 01/06/2025 Start: 01-07-2024 End: 01-06-2025 Phosphate [Mass/volume] in Serum or Plasma Phosphorus Lab Routine Seizure ([facility]) Muscle cramp Expected: 01/07/2024 (Approximate), Expires: 01/06/2025 [facility] Comment on above: Expected: 01/07/2024 (Approximate), Expires: 01/06/2025 Start: 01-07-2024 End: 01-06-2025 TSH with Reflex TSH with Reflex Lab Routine Seizure ([facility]) Muscle cramp Expected: 01/07/2024 (Approximate), Expires: 01/06/2025 [facility] Comment on above: Expected: 01/07/2024 (Approximate), Expires: 01/06/2025 Start: 10-02-2023 Depression Screening Depression Scre ening [facility] Start: 06-05-2023 Influenza vaccination Influenza Vacc ine [facility] Start: 2021 Screening for malign ant neoplasm of cervix Pap Smear [facility] Start: 2018 Adult BMI Follow Up Plan Adult BMI Follow Up Plan [facility] Start: 2000 Screening for Chlamy yuli trachomatis Chlamydia Screening [facility] End: 01-06-2025 C-reactive protein C-reactive protein Lab Routine Seizure ([facility] Muscle cramp 1 Occurrences starting 01/07/2024 until 01/06/2025 [facility] Comment on above: 1 Occurrences starti ng 01/07/2024 until 01/06/2025 End: 01-06-2025 CK Total CK Total Lab Routine Seizure ([facility]) Muscle cramp 1 Occurrences starting 01/07/2024 until 01/06/2025 [facility] Comment on above: 1 Occurrences starti ng 01/07/2024 until 01/06/2025 End: 01-06-2025 LDH LDH Lab Routine Seizure ([facility]) Muscle cramp 1 Occurrences starting 01/07/2024 until 01/06/2025 [facility] [email or web address] Comment on above: 1 Occurrences starti ng 01/07/2024 until 01/06/2025 End: 01-06-2025 Prolactin level Prolactin level Lab Routine Seizure ([facility]) Muscle cramp 1 Occurrences starting 01/07/2024 until 01/06/2025 [facility] [email or web address] Comment on above: 1 Occurrences starti ng 01/07/2024 until 01/06/2025 Problems Active Problems Problem Classification Problem Date [...] Translations: [Dermatitis, unspecified] Onset: 02-06-2023 02-06-2023 Episodic Procedures Date Procedure Procedure Detail Performing Clinician Start: 11-24-2023 Adult depression screening assessment Russ Vaughn MD Work Phone: Start: 10-02-2022 Adult depression screening assessment Russ Vaughn MD Work Phone: Results Test Name Value Interpretation Reference Range Facility CBC AND AUTO DIFFon 01-11-20 24 ABSOLUTE BASOPHIL 0.1 X10E9/L Normal 0.0-0.2 [facility] Comment on above: Performed By: #### N UM #### [facility] ([id number]) [address] [place] [address] ABSOLUTE NEUTROPHIL 7.3 X10E9/L High 1.5-6.6 [facility] Comment on above: Performed By: #### N UM #### [facility] ([id number]) [address] [place] [address] 22977 Basophils/100 WBC (Bld) 0.8 % Normal [facility] Comment on above: Performed By: #### N UM #### [facility] ([id number]) [address] [place] [address] 33014 Eosinophils (Bld) [#/Vol] 0.7 10*3/uL High 0.0-0.4 [facility] Comment on above: Performed By: #### N UM #### [facility] ([id number]) [address] [place] [address] 65554 Eosinophils/100 WBC (Bld) 7.2 % Normal [facility] Comment on above: Performed By: #### N UM #### [facility] ([id number]) [address] [place] [address] 45528 Erythrocyte distribution width (RBC) [Ratio] 13.7 % Normal 11.5-15.0 [facility] Comment on above: Performed By: #### N UM #### [facility] ([id number]) [address] [place] [address] 77823 Hematocrit (Bld) [Volume fraction] 42.5 % Normal 35-47 [facility] Comment on above: Performed By: #### N UM #### [facility] ([id number]) [address] [place] [address] 75246 Hemoglobin (Bld) [Mass/Vol] 14.5 g/dL Normal 11.7-15.5 [facility] Comment on above: Performed By: #### N UM #### [facility] ([id number]) [address] [place] [address] 12112 Lymphocytes (Bld) [#/Vol] 1.4 10*3/uL Normal 1.0-3.5 [facility] Comment on above: Performed By: #### N UM #### [facility] ([id number]) [address] [place] [address] 41400 Lymphocytes/100 WBC (Bld) 14.2 % Normal [facility] Comment on above: Performed By: #### N UM #### [facility] ([id number]) [address] [place] [address] 62325 MCH (RBC) [Entitic mass] 29.5 pg Normal 27-34 [facility] Comment on above: Performed By: #### N UM #### [facility] ([id number]) [address] [place] [address] 98718 MCHC (RBC) [Mass/Vol] 34.1 g/dL Normal 32-36 [facility] Comment on above: Performed By: #### N UM #### [facility] ([id number]) [address] [place] [address] 14832 MCV (RBC) [Entitic vol] 86 fL Normal 80-100 [facility] Comment on above: Performed By: #### N UM #### [facility] ([id number]) [address] [place] [address] 41618 Monocytes (Bld) [#/Vol] 0.5 10*3/uL Normal 0-0.9 [facility] Comment on above: Performed By: #### N UM #### [facility] ([id number]) [address] [place] [address] 40819 Monocytes/100 WBC (Bld) 5.5 % Normal [facility] Comment on above: Performed By: #### N UM #### [facility] ([id number]) [address] [place] [address] 29489 Neutrophils/100 WBC (Bld) 72.3 % Normal [facility] Comment on above: Performed By: #### N UM #### [facility] ([id number]) [address] [place] [address] 60992 Platelet mean volume (Bld) [Entitic vol] 8.0 fL Normal 7-12 [facility] Comment on above: Performed By: #### N UM #### [facility] ([id number]) [address] [place] [address] 05147 Platelets (Bld) [#/Vol] 362 10*3/uL Normal 150-450 [facility] Comment on above: Performed By: #### N UM #### [facility] ([id number]) [address] [place] [address] 71623 RBC COUNT 4.93 X10E12/L Normal 3.80-5.20 [facility] Comment on above: Performed By: #### N UM #### [facility] ([id number]) [address] [place] [address] 55462 WBC (Bld) [#/Vol] 10.0 10*3/uL Normal 4.0-11.0 [facility] Comment on above: Performed By: #### N UM #### [facility] ([id number]) [address] [place] [address] 84041 CK [Catalytic activity/Vol]o n 01-11-2024 CPK 53 U/L Normal 24-170 [facility] Comment on above: Performed By: #### C BCA, CMP, 5643-2, 42949-8, 75138-0, THYR #### [facility] ([id number]) [address] [place] [address] 15516 COMPREHENSIVE METABOLIC PANE Elvin 01-11-2024 Albumin [Mass/Vol] 4.9 g/dL Normal 3.2-5.3 [facility] Comment on above: Performed By: #### N UM #### [facility] ([id number]) [address] [place] [address] 15586 ALP [Catalytic activity/Vol] 83 U/L Normal 39-130 [facility] Comment on above: Performed By: #### N UM #### [facility] ([id number]) [address] [place] [address] 18029 ALT [Catalytic activity/Vol] 104 U/L High 0-31 [facility] Comment on above: Performed By: #### N UM #### [facility] ([id number]) [address] [place] [address] 99473 Anion gap [Moles/Vol] 10 mmol/L Normal 5-15 [facility] Comment on above: Performed By: #### N UM #### [facility] ([id number]) [address] [place] [address] 48402 AST [Catalytic activity/Vol] 48 U/L High 0-41 [facility] Comment on above: Performed By: #### N UM #### [facility] ([id number]) [address] [place] [address] 84904 Bilirubin [Mass/Vol] 0.5 mg/dL Normal 0.3-1.2 [facility] Comment on above: Performed By: #### N UM #### [facility] ([id number]) [address] [place] [address] Calcium [Mass/Vol] 9.8 mg/dL Normal 8.5-10.5 [facility] Comment on above: Performed By: #### N UM #### [facility] ([id number]) [address] [place] [address] 29461 Chloride [Moles/Vol] 101 mmol/L Normal 98-109 [facility] Comment on above: Performed By: #### N UM #### [facility] ([id number]) [address] [place] [address] 08296 CO2 [Moles/Vol] 25 mmol/L Normal 22-32 [facility] Comment on above: Performed By: #### N UM #### [facility] ([id number]) [address] [place] [address] 93166 Creatinine [Mass/Vol] 0.60 mg/dL Normal 0.40-1.00 [facility] Comment on above: Result Comment: METH OD TRACEABLE TO IDMS STANDARD Performed By: #### N UM #### [facility] ([id number]) [address] [place] [address] 95501 eGFR (CKD-EPI) NON-RACE DEPENDENT >90 Normal >59 [facility] Comment on above: Result Comment: Reported eGFR is based on the CKD-EPI 1 equation that does not use a race coefficient. Performed By: #### N UM #### [facility] ([id number]) [address] [place] [address]5224 Glucose [Mass/Vol] 82 mg/dL Normal 65-99 [facility] Comment on above: Performed By: #### N UM #### [facility] ([id number]) [address] [place] [address] 82357 Potassium [Moles/Vol] 4.2 mmol/L Normal 3.5-5.0 [facility] Comment on above: Performed By: #### N UM #### [facility] ([id number]) [address] [place] [address] 55306 Protein [Mass/Vol] 8.5 g/dL High 6.0-8.0 [facility] Comment on above: Performed By: #### N UM #### [facility] ([id number]) [address] [place] [address] 02864 Sodium [Moles/Vol] 136 mmol/L Normal 134-146 [facility] Comment on above: Performed By: #### N UM #### [facility] ([id number]) [address] [place] [address] 67311 Urea nitrogen [Mass/Vol] 13 mg/dL Normal 5-23 [facility] Comment on above: Performed By: #### N UM #### [facility] ([id number]) [address] [place] [address] 94487 CRP [Mass/Vol]on 01-11-2024 C REACTIVE PROTEIN 1.2 mg/dL High 0.000-0.744 [facility] Comment on above: Performed By: #### N UM #### [facility] ([id number]) [address] [place] [address] 18295 LDH [Catalytic activity/Vol] on 01-11-2024 LDH 245 U/L High 100-235 [facility] Comment on above: Performed By: #### N UM #### [facility] ([id number]) [address] [place] [address] [place] [address] MAGNESIUMon 01-11-2024 Magnesium [Mass/Vol] 1.9 mg/dL Normal 1.8-2.6 [facility] Comment on above: Performed By: #### N UM #### [facility] ([id number]) [address] [place] [address] [place] [address] PHOSPHORUSon 01-11-2024 Phosphate [Mass/Vol] 3.7 mg/dL Normal 2.4-4.9 [facility] Comment on above: Performed By: #### C BCA, CMP, 5643-2, 07600-0, 53125-6, THYR #### [facility] ([id number]) [address] [place] [address] 33156 Prolactin [Mass/Vol]on 01-10 PROLACTIN 6.7 ng/mL Normal 3.3-26.7 [facility] [facility] Comment on above: Performed By: #### C BCA, CMP, 5643-2, 36609-0, 61652-1, THYR #### [facility] ([id number]) [address] [place] [address] 39413 TSH WITH REFLEXon 01-11-2024 TSH 0.74 uIU/mL Normal 0.49-4.67 [facility] Comment on above: Performed By: #### C QUIQUE, [facility], 5643-2, 45243-5, , THYR #### [facility] ([id number]) [address] [place] [address] 36191 CBC AND AUTO DIFFon 01-06-20 24 ABSOLUTE BASOPHIL 0.1 X10E9/L Normal 0.0-0.2 [facility] [place] Comment on above: Performed By: #### N UM #### [facility] ([id number]) [address] [place] [address] 93937 ABSOLUTE NEUTROPHIL 9.8 X10E9/L High 1.5-6.6 [facility] Comment on above: Performed By: #### N UM #### [facility] ([id number]) [address] [place] [address] 36323 Basophils/100 WBC (Bld) 0.6 % Normal [facility] Comment on above: Performed By: #### N UM #### [facility] ([id number]) [address] [place] [address] 27996 Eosinophils (Bld) [#/Vol] 0.4 10*3/uL Normal 0.0-0.4 [facility] Comment on above: Performed By: #### N UM #### [facility] ([id number]) [address] [place] [address] 03153 Eosinophils/100 WBC (Bld) 3.4 % Normal [facility] Comment on above: Performed By: #### N UM #### [facility] ([id number]) [address] [place] [address] 51758 Erythrocyte distribution width (RBC) [Ratio] 13.8 % Normal 11.5-15.0 [facility] Comment on above: Performed By: #### N UM #### [facility] ([id number]) [address] [place] [address] 30083 Hematocrit (Bld) [Volume fraction] 40.1 % Normal 35-47 [facility] Comment on above: Performed By: #### N UM #### [facility] ([id number]) [address] [place] [address] 21866 Hemoglobin (Bld) [Mass/Vol] 13.5 g/dL Normal 11.7-15.5 [facility] Comment on above: Performed By: #### N UM #### [facility] ([id number]) [address] [place] [address] 39204 Lymphocytes (Bld) [#/Vol] 1.3 10*3/uL Normal 1.0-3.5 [facility] Comment on above: Performed By: #### N UM #### [facility] ([id number]) [address] [place] [address] 06364 Lymphocytes/100 WBC (Bld) 10.8 % Normal [facility] Comment on above: Performed By: #### N UM #### [facility] ([id number]) [address] [place] [address] 29613 MCH (RBC) [Entitic mass] 28.6 pg Normal 27-34 [facility] Comment on above: Performed By: #### N UM #### [facility] ([id number]) [address] [place] [address] 51364 MCHC (RBC) [Mass/Vol] 33.6 g/dL Normal 32-36 [facility] Comment on above: Performed By: #### N UM #### [facility] ([id number]) [address] [place] [address] 26617 MCV (RBC) [Entitic vol] 85 fL Normal 80-100 [facility] Comment on above: Performed By: #### N UM #### [facility] ([id number]) [address] [place] [address] 22920 Monocytes (Bld) [#/Vol] 0.9 10*3/uL Normal 0-0.9 [facility] Comment on above: Performed By: #### N UM #### [facility] ([id number]) [address] [place] [address] 24066 Monocytes/100 WBC (Bld) 6.9 % Normal [facility] Comment on above: Performed By: #### N UM #### [facility] ([id number]) [address] [place] [address] 12257 Neutrophils/100 WBC (Bld) 78.3 % Normal [facility] Comment on above: Performed By: #### N UM #### [facility] ([id number]) [address] [place] [address] 49472 Platelet mean volume (Bld) [Entitic vol] 7.5 fL Normal 7-12 [facility] Comment on above: Performed By: #### N UM #### [facility] ([id number]) [address] [place] [address] 47725 Platelets (Bld) [#/Vol] 354 10*3/uL Normal 150-450 [facility] Comment on above: Performed By: #### N UM #### [facility] ([id number]) [address] [place] [address] 77057 RBC COUNT 4.71 X10E12/L Normal 3.80-5.20 [facility] Comment on above: Performed By: #### N UM #### [facility] ([id number]) [address] [place] [address] 79993 WBC (Bld) [#/Vol] 12.5 10*3/uL High 4.0-11.0 [facility] Comment on above: Performed By: #### N UM #### [facility] ([id number]) [address] [place] [address] 21823 COMPREHENSIVE METABOLIC PANE Elvin 01-06-2024 Albumin [Mass/Vol] 4.4 g/dL Normal 3.2-5.3 [facility] Comment on above: Performed By: #### N UM #### [facility] ([id number]) [address] [place] [address] 49711 ALP [Catalytic activity/Vol] 60 U/L Normal 39-130 [facility] Comment on above: Performed By: #### N UM #### [facility] ([id number]) [address] [place] [address] 06328 ALT [Catalytic activity/Vol] 38 U/L High 0-31 [facility] Comment on above: Performed By: #### N UM #### [facility] ([id number]) [address] [place] [address] 44263 Anion gap [Moles/Vol] 7 mmol/L Normal 5-15 [facility] Comment on above: Performed By: #### N UM #### [facility] ([id number]) [address] [place] [address] 74402 AST [Catalytic activity/Vol] 27 U/L Normal 0-41 [facility] Comment on above: Performed By: #### N UM #### [facility] ([id number]) [address] [place] [address] 49346 Bilirubin [Mass/Vol] 0.4 mg/dL Normal 0.3-1.2 [facility] Comment on above: Performed By: #### N UM #### [facility] ([id number]) [address] [place] [address] 60567 Calcium [Mass/Vol] 9.0 mg/dL Normal 8.5-10.5 [facility] [place] Comment on above: Performed By: #### N UM #### [facility] ([id number]) [address] [place] [address] 34323 Chloride [Moles/Vol] 103 mmol/L Normal 98-109 [facility] Comment on above: Performed By: #### N UM #### [facility] ([id number]) [address] [place] [address] 40924 CO2 [Moles/Vol] 23 mmol/L Normal 22-32 [facility] Comment on above: Performed By: #### N UM #### [facility] ([id number]) [address] [place] [address] 53649 Creatinine [Mass/Vol] 0.75 mg/dL Normal 0.40-1.00 [facility] Comment on above: Result Comment: METH OD TRACEABLE TO IDMS STANDARD Performed By: #### N UM #### [facility] ([id number]) [address] [place] [address] 72356 eGFR (CKD-EPI) NON-RACE DEPENDENT >90 Normal >59 [facility] Comment on above: Result Comment: Reported eGFR is based on the CKD-EPI 2020 equation that does not use a race coefficient. Performed By: #### N UM #### [facility] ([id number]) [address] [place] [address] 91909 Glucose [Mass/Vol] 91 mg/dL Normal 65-99 [facility] Comment on above: Performed By: #### N UM #### [facility] ([id number]) [address] [place] [address] 86638 Potassium [Moles/Vol] 3.9 mmol/L Normal 3.5-5.0 [facility] Comment on above: Performed By: #### N UM #### [facility] ([id number]) [address] [place] [address] 70570 Protein [Mass/Vol] 8.3 g/dL High 6.0-8.0 [facility] Comment on above: Performed By: #### N UM #### [facility] ([id number]) [address] [place] [address] 70825 Sodium [Moles/Vol] 133 mmol/L Low 134-146 [facility] Comment on above: Performed By: #### N UM #### [facility] ([id number]) [address] [place] [address] 81748 Urea nitrogen [Mass/Vol] 16 mg/dL Normal 5-23 [facility] Comment on above: Performed By: #### N UM #### [facility] ([id number]) [address] [place] [address] 84443 EDPROVon 01-06-2024 EDPROV HPI Chief Complaint Patient [...] Lilian Ellington (more content not included)... Normal [facility] Glucose Glucometer (BldC) [M ass/Vol]on 01-06-2024 Glucose [Mass/Vol] 85 mg/dL Normal 65-99 [facility] Lactate (P nancy) [Moles/Vol]o n 01-06-2024 LACTATE W/REFLEX 2.1 mmol/L High 0.4-2.0 [facility] Comment on above: Performed By: #### N UM #### [facility] ([id number]) [address] [place] [address] 18012 TROPONIN Ion 01-06-2024 Troponin I.cardiac [Mass/Vol] 0.01 ng/mL Normal 0.00-0.04 [facility] Comment on above: Performed By: #### N UM #### [facility] ([id number]) [address] [place] [address] 33576 CBC AND AUTO DIFFon 12-27-19 ABSOLUTE BASOPHIL 0.1 X10E9/L Normal 0.0-0.2 [facility] Comment on above: Performed By: #### C BCA, CMP, 5643-2, 28042-6, 52535-5, THYR #### [facility] ([id number]) [address] [place] [address] 81971 ABSOLUTE NEUTROPHIL 7.8 X10E9/L High 1.5-6.6 [facility] Comment on above: Performed By: #### C BCA, CMP, 5643-2, 18015-5, 76631-1, THYR #### [facility] ([id number]) [address] [place] [address] 24577 Basophils/100 WBC (Bld) 1.3 % Normal [facility] Comment on above: Performed By: #### C BCA, CMP, 5643-2, 48071-0, 79584-5, THYR #### [facility] ([id number]) [address] [place] [address] 97032 Eosinophils (Bld) [#/Vol] 0.8 10*3/uL High 0.0-0.4 [facility] Comment on above: Performed By: #### C BCA, CMP, 5643-2, 63106-8, 21128-2, THYR #### [facility] ([id number]) [address] [place] [address] 72185 Eosinophils/100 WBC (Bld) 7.8 % Normal [facility] Comment on above: Performed By: #### C QUIQUE, CMP, 5643-2, 37072-8, 10854-7, THYR #### [facility] ([id number]) [address] [place] [address] 50482 Erythrocyte distribution width (RBC) [Ratio] 13.3 % Normal 11.5-15.0 [facility] Comment on above: Performed By: #### C QUIQUE, CMP, 5643-2, 25553-1, 89179-9, THYR #### [facility] ([id number]) [address] [place] [address] 87113 Hematocrit (Bld) [Volume fraction] 38.5 % Normal 35-47 [facility] Comment on above: Performed By: #### C QUIQUE, CMP, 5643-2, 29608-1, 45035-1, THYR #### [facility] ([id number]) [address] [place] [address] 52236 Hemoglobin (Bld) [Mass/Vol] 13.2 g/dL Normal 11.7-15.5 [facility] Comment on above: Performed By: #### C BCA, CMP, 5643-2, 86858-1, 40639-4, THYR #### [facility] ([id number]) [address] [place] [address] 20567 Lymphocytes (Bld) [#/Vol] 1.3 10*3/uL Normal 1.0-3.5 [facility] Comment on above: Performed By: #### Dhruv BCA, CMP, 5643-2, 99872-6, 41354-0, THYR #### [facility] ([id number]) [address] [place] [address] [place] [address] Lymphocytes/100 WBC (Bld) 12.0 % Normal [facility] Comment on above: Performed By: #### C SYED LEI, 5643-2, 34080-8, 49218-4, THYR #### [facility] ([id number]) [address] [place] [address] 37199 MCH (RBC) [Entitic mass] 29.7 pg Normal 27-34 [facility] Comment on above: Performed By: #### C QUIQUE, SYED, 5643-2, 83293-0, 02845-1, THYR #### [facility] ([id number]) [address] [place] [address] 44283 MCHC (RBC) [Mass/Vol] 34.4 g/dL Normal 32-36 [facility] Comment on above: Performed By: #### Dhruv LEI CMP, 5643-2, , 72751-0, THYR #### [facility] ([id number]) [address] [place] [address] 54998 MCV (RBC) [Entitic vol] 87 fL Normal 80-100 [facility] Comment on above: Performed By: #### Dhruv LEI CMP, 5643-2, 13697-3, 58459-6, THYR #### [facility] ([id number]) [address] [place] [address] 66327 Monocytes (Bld) [#/Vol] 0.6 10*3/uL Normal 0-0.9 [facility] Comment on above: Performed By: #### C QUIQUE, SYED, 5643-2, 26305-6, 05819-5, THYR #### [facility] ([id number]) [address] [place] [address] 14831 Monocytes/100 WBC (Bld) 6.0 % Normal [facility] Comment on above: Performed By: #### C BCA, CMP, 5643-2, 66191-0, 01758-3, THYR #### [facility] ([id number]) [address] [place] [address] 76836 Neutrophils/100 WBC (Bld) 72.9 % Normal [facility] Comment on above: Performed By: #### Dhruv LEI, CMP, 5643-2, 79900-9, 05314-4, THYR #### [facility] ([id number]) [address] [place] [address] 29583 Platelet mean volume (Bld) [Entitic vol] 7.4 fL Normal 7-12 [facility] Comment on above: Performed By: #### Dhruv LEI, CMP, 5643-2, 68143-5, 96536-4, THYR #### [facility] ([id number]) [address] [place] [address] 77266 Platelets (Bld) [#/Vol] 332 10*3/uL Normal 150-450 [facility] Comment on above: Performed By: #### Dhruv LEI, CMP, 5643-2, 83475-5, 63987-6, THYR #### [facility] ([id number]) [address] [place] [address] 50778 RBC COUNT 4.45 X10E12/L Normal 3.80-5.20 [facility] Comment on above: Performed By: #### Dhruv BCA, CMP, 5643-2, 37357-3, 77133-9, THYR #### [facility] ([id number]) [address] [place] [address] 37483 WBC (Bld) [#/Vol] 10.6 10*3/uL Normal 4.0-11.0 [facility] Comment on above: Performed By: #### Dhruv BCA, CMP, 5643-2, 52527-8, 17576-6, THYR #### [facility] ([id number]) [address] [place] [address] 76197 COMPREHENSIVE METABOLIC PANE Elvin 12-27-2023 Albumin [Mass/Vol] 4.3 g/dL Normal 3.2-5.3 [facility] Comment on above: Performed By: #### C BCA, CMP, 5643-2, 37960-1, 18495-6, THYR #### [facility] ([id number]) [address] [place] [address] 67657 ALP [Catalytic activity/Vol] 75 U/L Normal 39-130 [facility] Comment on above: Performed By: #### C BCA, CMP, 5643-2, 70574-3, 60202-3, THYR #### [facility] ([id number]) [address] [place] [address] 74689 ALT [Catalytic activity/Vol] 18 U/L Normal 0-31 [facility] Comment on above: Performed By: #### C BCA, CMP, 5643-2, 58518-4, 82250-2, THYR #### [facility] ([id number]) [address] [place] [address] 28257 Anion gap [Moles/Vol] 7 mmol/L Normal 5-15 [facility] Comment on above: Performed By: #### C BCA, CMP, 5643-2, 62335-9, 19284-5, THYR #### [facility] ([id number]) [address] [place] [address] 39615 AST [Catalytic activity/Vol] 27 U/L Normal 0-41 [facility] Comment on above: Performed By: #### C BCA, CMP, 5643-2, 39025-8, 95713-8, THYR #### [facility] ([id number]) [address] [place] [address] 21391 Bilirubin [Mass/Vol] 0.5 mg/dL Normal 0.3-1.2 [facility] Comment on above: Performed By: #### C BCA, CMP, 5643-2, 55897-5, 24378-1, THYR #### [facility] ([id number]) [address] [place] [address] 75309 Calcium [Mass/Vol] 8.6 mg/dL Normal 8.5-10.5 [facility] Comment on above: Performed By: #### C BCA, CMP, 5643-2, 34371-6, 87685-6, THYR #### [facility] ([id number]) [address] [place] [address] 96769 Chloride [Moles/Vol] 106 mmol/L Normal 98-109 [facility] Comment on above: Performed By: #### C BCA, CMP, 5643-2, 33015-3, 83247-9, THYR #### [facility] ([id number]) [address] [place] [address] 43091 CO2 [Moles/Vol] 22 mmol/L Normal 22-32 [facility] Comment on above: Performed By: #### C BCA, CMP, 5643-2, 08435-2, 67771-9, THYR #### [facility] ([id number]) [address] [place] [address] 27479 Creatinine [Mass/Vol] 0.70 mg/dL Normal 0.40-1.00 [facility] Comment on above: Result Comment: METH OD TRACEABLE TO IDMS STANDARD Performed By: #### C BCA, CMP, 5643-2, 82647-8, 81049-9, THYR #### [facility] ([id number]) [address] [place] [address] 17985 eGFR (CKD-EPI) NON-RACE DEPENDENT >90 Normal >59 [facility] Comment on above: Result Comment: Reported eGFR is based on the CKD-EPI 2020 equation that does not use a race coefficient. Performed By: #### C BCA, CMP, 5643-2, 61984-9, 42963-5, THYR #### [facility] ([id number]) [address] [place] [address] 61700 Glucose [Mass/Vol] 105 mg/dL High 65-99 [facility] Comment on above: Performed By: #### C BCA, CMP, 5643-2, 71299-7, 93136-6, THYR #### [facility] ([id number]) [address] [place] [address] 27153 Potassium [Moles/Vol] 3.7 mmol/L Normal 3.5-5.0 [facility] Comment on above: Performed By: #### C QUIQUE, CMP, 5643-2, 88023-8, 24016-0, THYR #### [facility] ([id number]) [address] [place] [address] 21365 Protein [Mass/Vol] 8.1 g/dL High 6.0-8.0 [facility] Comment on above: Performed By: #### C QUIQUE, CMP, 5643-2, 60888-4, 43134-7, THYR #### [facility] ([id number]) [address] [place] [address] 40814 Sodium [Moles/Vol] 135 mmol/L Normal 134-146 [facility] Comment on above: Performed By: #### C BCA, CMP, 5643-2, 79591-4, 46122-8, THYR #### [facility] ([id number]) [address] [place] [address] 61225 Urea nitrogen [Mass/Vol] 13 mg/dL Normal 5-23 [facility] Comment on above: Performed By: #### C BCA, CMP, 5643-2, 98723-2, 16972-6, THYR #### [facility] ([id number]) [address] [place] [address] BRAIN WO CONTon 4 CT BRAIN [...] Mooney MD on 12/27/2023 11:39 AM Normal [facility] DRUG SCREEN, URINEon 024 AMPHETAMINE/METHAMP Negative Normal NEG [facility] Comment on above: Result Comment: AMPH /METH screening cut off = 1000 ng/mL Performed By: #### D WALLS #### [facility] ([id number]) [address] [place] [address] 16324 BARBITURATES Negative Normal NEG [facility] Comment on above: Result Comment: Evonne iturates screening cut off value = 200 ng/mL Performed By: #### D WALLS #### [facility] ([id number]) [address] [place] [address] 27925 BENZODIAZEPINES Negative Normal NEG [facility] Comment on above: Result Comment: Silas odiazepines screening cut off value = 200 ng/mL Performed By: #### D WALLS #### [facility] ([id number]) [address] [place] [address] 68121 CANNABINOIDS Positive Abnormal NEG [facility] Comment on above: Result Comment: Conf irmation available upon request. Cannabinoids/THC screening cut off value = 50 ng/mL Performed By: #### D WALLS #### [facility] ([id number]) [address] [place] [address] 67342 COCAINE METABOLITE Negative Normal NEG [facility] Comment on above: Result Comment: Coca ine screening cut off value = 300 ng/mL Performed By: #### D WALLS #### [facility] ([id number]) [address] [place] [address] 39192 ECSTASY Negative Normal NEG [facility] Comment on above: Result Comment: Ecst asy screening cut off value = 500 ng/mL This report is intended for use in clinical monitoring or management of patients. Performed By: #### D WALLS #### [facility] ([id number]) [address] [place] [address] 30884 METHADONE Negative Normal NEG [facility] Comment on above: Result Comment: Meth adone screening cut off value = 300 ng/mL. Performed By: #### D WALLS #### [facility] ([id number]) [address] [place] [address] 47840 OPIATES Negative Normal [facility] Comment on above: Result Comment: Opia kami screening cut off value = 300 ng/mL NOTE: This test is used for the detection of codeine, hydrocodone (>1000 ng/mL), morphine and hydromorphone (>900 ng/mL) in urine. Performed By: #### D WALLS #### [facility] ([id number]) [address] [place] [address] 43302 OXYCODONE Negative Normal [facility] Comment on above: Result Comment: Oxyc odone screening cut off value = 300 ng/mL NOTE: This test is used for the detection of oxycodone and oxymorphone in urine. Performed By: #### D WALLS #### [facility] ([id number]) [address] [place] [address] 36715 PHENCYCLIDINE Negative Normal NEG [facility] Comment on above: Result Comment: Phen cyclidine screening cut off value = 25 ng/mL Performed By: #### D WALLS #### [facility] ([id number]) [address] [place] [address] 05407 ETHANOLon 12-27-2023 Ethanol [Mass/Vol] mg/dL Normal 0.00-0.08 [facility] Comment on above: Result Comment: This report is intended for use in clinical monitoring or management of patients. Performed By: #### C SYED LEI, 5643-2, 10288-6, , THYR #### [facility] ([id number]) [address] [place] [address] 38925 HCG ( test) Ql (U)o n 12-27-2023 Beta HCG ( test) Ql (U) Negative Normal NEG [facility] Comment on above: Performed By: #### 2 106-3 #### [facility] ([id number]) [address] [place] [address] 18400 MAGNESIUMon 12-27-2023 Magnesium [Mass/Vol] 2.3 mg/dL Normal 1.8-2.6 [facility] Comment on above: Performed By: #### C QUIQUE, SYED, 5643-2, , , THYR #### [facility] ([id number]) [address] [place] [address] 05539 THYROID PROFILEon 12-27-2023 Free T4 [Mass/Vol] 0.83 ng/dL Normal 0.61-1.60 [facility] Comment on above: Performed By: #### C QUIQUE, CMP, 5643-2, , 82742-5, THYR #### [facility] ([id number]) [address] [place] [address] 45742 TSH 1.78 uIU/mL Normal 0.49-4.67 [facility] Comment on above: Performed By: #### C BCA, CMP, 5643-2, 72679-8, 70009-8, THYR #### [facility] ([id number]) [address] [place] [id number] TROPONIN Ion 12-27-2023 Troponin I.cardiac [Mass/Vol] 0.02 ng/mL Normal 0.00-0.04 [facility] Comment on above: Performed By: #### C BCA, CMP, 5643-2, 69779-6, 80365-2, THYR #### [facility] ([id number]) [address] [place] [id number] URN MACROSCOPIC NURon 2023 BILIRUBIN KIRSTA Negative Normal NEG [facility] Comment on above: Performed By: #### N UM #### [facility] ([id number]) [address] [place] [id number] BLOOD/HGB KRISTA Negative Normal NEG [facility] Comment on above: Performed By: #### N UM #### [facility] ([id number]) [address] [place] [id number] GLUCOSE KRISTA Negative Normal NEG [facility] Comment on above: Performed By: #### N UM #### [facility] ([id number]) [address] [place] [address] [place] [address] KETONES KRISTA Negative Normal NEG [facility] Comment on above: Performed By: #### N UM #### [facility] ([id number]) [address] [place] [id number] LEUKOCYTE ESTERASE KRISTA Negative Normal NEG [facility] Comment on above: Performed By: #### N UM #### [facility] ([id number]) [address] [place] [address] NITRITE KRISTA Negative Normal NEG [facility] Comment on above: Performed By: #### N UM #### [facility] ([id number]) [address] [place] [address] PH KRISTA 6.0 Normal 5.0-8.5 [facility] Comment on above: Performed By: #### N UM #### [facility] ([id number]) [address] [place] [address]85 PROTEIN KRISTA 30 mg/dL Abnormal NEG [facility] Comment on above: Performed By: #### N UM #### [facility] ([id number]) [address] [place] [address] SPECIFIC GRAVITY KRISTA 1.025 Normal 1.003-1.035 [facility] Comment on above: Performed By: #### N UM #### [facility] ([id number]) [address] [place] [address] UROBILINOGEN KRISTA 0.2 eu/dL Normal <1.1 [facility] Comment on above: Performed By: #### N UM #### [facility] ([id number]) [address] [place] [id number] AMYLASEon 09-25-2022 Amylase [Catalytic activity/Vol] 56 U/L Normal 25-115 [facility] Comment on above: Performed By: #### A MY, CMP, LIPA #### [facility] [address] [address] [address] Hanh Cervantes CBC AUTO DIFFon 09-25-2022 BASO # 0.1 103/ul Normal 0.0-0.1 [facility] Comment on above: Performed By: #### C BC #### [facility] [address] [address] [address] Hanh Cervantes Basophils/100 WBC (Bld) 0.5 % Normal 0.2-2.0 [facility] Comment on above: Performed By: #### C BC #### [facility] [address] [address] [address] Hanh Cervantes EO # 0.1 103/ul Normal 0.0-0.7 [facility] Comment on above: Performed By: #### C BC #### [facility] [address] [place] [address] Dr. Hanh Cervantes Eosinophils/100 WBC (Bld) 0.5 % Critically low 0.9-7.0 [facility] Comment on above: Performed By: #### C BC #### [facility] [address] [place] [address] Dr. Hanh Crevantes Erythrocyte distribution width (RBC) [Ratio] 12.4 % Normal 11.0-15.0 [facility] Comment on above: Performed By: #### C BC #### [facility] [address] [place] [address] Dr. Hanh Cervantes Hematocrit (Bld) [Volume fraction] 42.1 % Normal 36.0-48.0 [facility] Comment on above: Performed By: #### C BC #### [facility] [address] [place] [address] Dr. Hanh Cervantes Hemoglobin (Bld) [Mass/Vol] 14.3 g/dL Normal 12.0-16.0 [facility] Comment on above: Performed By: #### C BC #### [facility] [address] [place] [address] Dr. Hanh Cervantes IG # 0.04 10e3/ul Critically high 0.00-0.03 [facility] Comment on above: Performed By: #### C BC #### [facility] [address] [place] [address] Dr. Hanh Cervantes IG % 0.3 % Normal 0.0-0.5 [facility] Comment on above: Performed By: #### C BC #### [facility] [address] [place] [address] Dr. Hanh Cervantes LYMPH # 1.1 103/ul Critically low 1.2-3.8 [facility] Comment on above: Performed By: #### C BC #### [facility] [address] [address] [address] Hanh Cervantes Lymphocytes/100 WBC (Bld) 9.7 % Critically low 20.5-60.0 [facility] Comment on above: Performed By: #### C BC #### [facility] [address] [place] [address] Dr. Hanh Cervantes MANUAL DIFF REQ NO Normal [facility] Comment on above: Performed By: #### C BC #### [facility] [address] [address] [address] Hanh Cervantes MCH (RBC) [Entitic mass] 28.9 pg Normal 26.7-34.0 [facility] Comment on above: Performed By: #### C BC #### [facility] [address] [place] [address] Dr. Hanh Cervantes MCHC (RBC) [Mass/Vol] 34.0 g/dL Normal 29.9-35.2 [facility] Comment on above: Performed By: #### C BC #### [facility] [address] [place] [address] Dr. Hanh Cervantes MCV (RBC) [Entitic vol] 85.2 fL Normal 81.0-99.0 [facility] Comment on above: Performed By: #### C BC #### [facility] [address] [place] [address] Dr. Hanh Cervantes MONO # 0.5 103/ul Normal 0.3-0.8 [facility] Comment on above: Performed By: #### C BC #### [facility] [address] [place] [address] Dr. Hanh Cervantes Monocytes/100 WBC (Bld) 4.4 % Normal 1.7-12.0 [facility] Comment on above: Performed By: #### C BC #### [facility] [address] [place] [address] Dr. Hanh Cervantes NEUT # 9.9 103/ul Critically high 1.4-6.5 [facility] Comment on above: Performed By: #### C BC #### [facility] [address] [place] [address] Dr. Hanh Cervantes Neutrophils/100 WBC (Bld) 84.6 % Critically high 43.0-75.0 [facility] Comment on above: Performed By: #### C BC #### [facility] [address] [place] [address] Dr. Hanh Cervantes Platelet mean volume (Bld) [Entitic vol] 10.1 fL Normal 9.5-13.5 [facility] Comment on above: Performed By: #### C BC #### [facility] [address] [place] [address] Dr. Hanh Cervantes PLT 368 103/ul Normal 150-450 [facility] Comment on above: Performed By: #### C BC #### [facility] [address] [place] [address] Dr. Hanh Cervantes RBC 4.94 106/ul Normal 4.20-5.40 [facility] Comment on above: Performed By: #### C BC #### [facility] [address] [place] [address] Dr. Hanh Cervantes WBC 11.7 103/ul Critically high 4.0-11.0 [facility] Comment on above: Performed By: #### C BC #### [facility] [address] [place] [address] Dr. Hanh Cervantes LIPASEon 09-25-2022 Lipase [Catalytic activity/Vol] 82.0 U/L Normal 73.0-393.0 [facility] Comment on above: Performed By: #### A MY, CMP, LIPA #### [facility] [address] [place] [address] Dr. Hanh Cervantes PROF 14(COMP METB)on 022 Albumin [Mass/Vol] 4.6 g/dL Normal 3.4-5.0 [facility] Comment on above: Performed By: #### A MY, CMP, LIPA #### [facility] [address] [place] [address] Dr. Hanh Cervantes Albumin/Globulin [Mass ratio] 1.1 {ratio} Normal [facility] Comment on above: Performed By: #### A MY, CMP, LIPA #### [facility] [address] [address] [address] Hanh Cervantes ALP [Catalytic activity/Vol] 88 U/L Normal 46-116 [facility] Comment on above: Performed By: #### A MY, CMP, LIPA #### [facility] [address] [address] [address] Hanh Cervantes ALT [Catalytic activity/Vol] 45 U/L Normal 14-59 [facility] Comment on above: Performed By: #### A MY, CMP, LIPA #### [facility] [address] [address] [address] Hanh Cervantes Anion gap [Moles/Vol] 14.7 mmol/L Normal [facility] Comment on above: Performed By: #### A MY, CMP, LIPA #### [facility] [address] [address] [address] Hanh Cervantes AST [Catalytic activity/Vol] 24 U/L Normal 15-37 [facility] Comment on above: Performed By: #### A MY, CMP, LIPA #### [facility] [address] [address] [address] Hanh Cervantes Bilirubin [Mass/Vol] 0.6 mg/dL Normal 0.2-1.0 [facility] Comment on above: Performed By: #### A MY, CMP, LIPA #### [facility] [address] [address] [address] Hanh Cervantes Calcium [Mass/Vol] 9.4 mg/dL Normal 8.5-10.1 [facility] Comment on above: Performed By: #### A MY, CMP, LIPA #### [facility] [address] [address] [address] Hanh Cervantes Chloride [Moles/Vol] 100 mmol/L Normal 98-107 [facility] Comment on above: Performed By: #### A MY, CMP, LIPA #### [facility] [address] [address] [address] Hanh Cervantes CO2 [Moles/Vol] 25.9 mmol/L Normal 21.0-32.0 [facility] Comment on above: Performed By: #### A MY, CMP, LIPA #### [facility] [address] [address] [address] Hanh Cervantes Creatinine [Mass/Vol] 0.78 mg/dL Normal 0.55-1.02 [facility] Comment on above: Performed By: #### A MY, CMP, LIPA #### [facility] [address] [address] [address] Hanh Cervantes EGFR-AF MONTSERRATIAN >60 Normal >=60 [facility] Comment on above: Performed By: #### A MY, CMP, LIPA #### [facility] [address] [place] [address] Dr. Hanh Cervantes EGFR-NON AF MONTSERRATIAN >60 Normal >=60 [facility] Comment on above: Performed By: #### A MY, CMP, LIPA #### [facility] [address] [place] [address] Dr. Hanh Cervantes Globulin (S) [Mass/Vol] 4.3 g/dL Normal [facility] Comment on above: Performed By: #### A MY, CMP, LIPA #### [facility] [address] [place] [address] Dr. Hanh Cervantes Glucose [Mass/Vol] 117 mg/dL Critically high 74-106 [facility] Comment on above: Performed By: #### A MY, CMP, LIPA #### [facility] [address] [place] [address] Dr. Hanh Cervantes Potassium [Moles/Vol] 3.6 mmol/L Normal 3.5-5.1 [facility] Comment on above: Performed By: #### A MY, CMP, LIPA #### [facility] [address] [place] [address] Dr. Hanh Cervantes Protein [Mass/Vol] 8.9 g/dL Critically high 6.4-8.2 [facility] Comment on above: Performed By: #### A MY, CMP, LIPA #### [facility] [address] [place] [address] Dr. Hanh Cervantes Sodium [Moles/Vol] 137 mmol/L Normal 136-145 [facility] Comment on above: Performed By: #### A MY, CMP, LIPA #### [facility] [address] [address] [address] Hanh Cervantes Urea nitrogen [Mass/Vol] 9.0 mg/dL Normal 7.0-18.0 [facility] Comment on above: Performed By: #### A MY, CMP, LIPA #### [facility] [address] [address] [address] Hanh Cervantes Urea nitrogen/Creatinine [Mass ratio] 11.5 mg/mg Normal [facility] Comment on above: Performed By: #### A MY CMP, LIPA #### [facility] [address] [place] [address] Dr. Hanh Cervantes Social History Date Type Detail Facility Start: 10-08-2023 End: 01-06-2024 Sex Assigned At [facility] Start: 10-08-2023 End: 01-06-2024 Alcohol intake Current drinker of alcohol (finding) [facility] Start: 10-08-2023 End: 01-06-2024 History of Social function [facility] Start: 10-02-2022 Tobacco smoking stat [facility] Ex-smoker [facility] Start: 10-02-2022 Tobacco use and exposure Smokeless tobacco non-user [facility] Start: 10-02-2022 Alcohol Comment rarely [facility] Start: 2000 Sex Assigned At Not on file [facility] Unknown if ever smoked [employer] Other End: 10-05-2020 History of tobacco use Current smoker [facility] End: 10-05-2020 History of tobacco use Cigarette Smoker [facility] How hard is it for y ou to pay for the very basics like food, housing, medical care, and heating Not very hard [facility] Adolescent depressio n screening assessment 0 [facility] Vital Signs Date Time Vital Sign Value Performing Clinician Facility 07-22-2023 16:40-0400 Body height 160.02 cm Barb Woodard Other [employer] Other 07-22-2023 16:40-0400 Body mass index (BMI) [Ratio] 27.99 kg/m2 Barb Woodard Other [employer] Other 07-22-2023 16:40-0400 Body temperature 99.7 [degF] Barb Woodard Other [employer] Other 07-22-2023 16:40-0400 Body weight 71.67 kg Barb Woodard Other [employer] Other 07-22-2023 16:40-0400 Diastolic blood pressure 83 mm[Hg] Barb Woodard Other [employer] Other 07-22-2023 16:40-0400 Respiratory rate 18 /min Barb Woodard Other [employer] Other 07-22-2023 16:40-0400 SaO2% (BldA) [Mass fraction] 99 % Barb Woodard Other [employer] Other 07-22-2023 16:40-0400 Systolic blood pressure 119 mm[Hg] Barb Woodard Other [employer] Other Clinical Notes 07-22-2023 to 12-28-2023 Telephone Encounter - Kathrin Howard - 12/28/2023 8:48 AM EDTTelephone Encounter - Kathrin Howard - 12/28/2023 8:48 AM Phyllis Vaughn MD - 11/24/2023 7:45 AM EST Note Date & Type Note Facility 12-28-2023 Miscellaneous Notes Formattin g of this note might be different from the original. Please ask the following questions to the new patient that you are schedulin. IS THIS DUE TO AN ACCIDENT? - No 2. IS THIS WORKER'S COMP? - No 3. WHAT INSURANCE? - [facility] 4. HAVE YOU EVER BEEN SEEN BY A NEUROLOGIST BEFORE? IF YES, WHO AND WHEN? IS THIS A SECOND OPINION? - No 5. PATIENT IS SCHEDULED ON/WITH: - 01/29/2024 at 1:30pm with Dr. Sharma in [place]. Patient's requested Merna and requested . documented in this encounter [facility] 12-28-2023 Telephone encount er Note Please ask the following questions to the new patient that you are schedulin. IS THIS DUE TO AN ACCIDENT? - No 2. IS THIS WORKER'S COMP? - No 3. WHAT INSURANCE? - [facility] 4. HAVE YOU EVER BEEN SEEN BY A NEUROLOGIST BEFORE? IF YES, WHO AND WHEN? IS THIS A SECOND OPINION? - No 5. PATIENT IS SCHEDULED ON/WITH: - 01/29/2024 at 1:30pm with Dr. Sharma in [place]. Patient's requested Merna and requested . [facility] 11-24-2023 History of Presen t illness Narrative Images from the original note were not included. [address] [place] [id number] Patient: Yolanda Villanueva Date of : [...] Visit via Real-time Synchronous Audiovisual Provider Location: [facility] [address] [place] [phone] Patient Location: Patient's home Video Visit Consent [...] that there are some limitations compared to ysoh-jn-vpae evaluations. The patient consented to the presence of additional virtual and/or in-person participants. We elected to proceed. RUSS VAUGHN MD Family Medicine Physician [facility] / [facility] 11/24/23 This note was completed with voice recognition software. The document was reviewed for errors however some may still be present. Please do not hesitate to contact/Epic ms the author to verify any questions/concerns. documented in this encounter [facility] 10-08-2023 History of Presen t illness Narrative Images from the original note were not included. [address] [place] [phone] Patient: Yolanda Villanueva Date of : 2000 [...] Visit via Real-time Synchronous Audiovisual Provider Location: [facility] [address] [place] [phone] Patient Location: Patient's home Video Visit Consent [...] that there are some limitations compared to [id number] evaluations. The patient consented to the presence of additional virtual and/or in-person participants. We elected to proceed. RUSS VAUGHN MD Family Medicine Physician [facility] 10/08/23 This note was completed with voice recognition software. The document was reviewed for errors however some may still be present. Please do not hesitate to contact/Epic [facility] the author to verify any questions/concerns. documented in this encounter [facility] 07-22-2023 Evaluation note Encounter Date Diagnosis Assessment [...] declines urinalysis, declines test, denies suspicion of [employer] Other Evaluation note* Diagnosis Generalized anxiety disorder [facility] Diagnosis Anxiety- Primary Anxiety state, unspecified Depression, unspecified depression type [facility] Seizure (CMS-HCC)- Primary Other convulsions Muscle cramp Cramp of limb [facility] - [facility]orted* Type Description Date Medical History Hiatal hernia Medical History ulcers Surgical History double scope 2022 [employer] Other InstructionsNot on filedocumented in this encounter [...] and content) DATE CREATED AUTHOR 10/01/2022 [facility] DATE CREATED AUTHOR AUTHOR'S ORGANIZ ATION 01/11/2024 [facility] DATE CREATED AUTHOR AUTHOR'S ORGANIZ ATION 01/21/2024 [facility] DATE CREATED AUTHOR AUTHOR'S ORGANIZ ATION 02/04/2024 [facility] DATE CREATED AUTHOR AUTHOR'S ORGANIZ ATION 02/26/2024 [facility] REASON FOR VISIT (unrecogniz ed section and content) Reason Comments Anxiety Reason Comments Medication Problem Anxiety medications not working Reason Onset Date Comments New Patient Appt. 12/28/2023 Care Teams (unrecognized sec tion and content) [employer] Relationship Specialty Start Date End Date Russ Vaughn MD [address] [place] [address] PCP - General Internal Medicine 04/10/23 [employer] Relationship Specialty Start Date End Date Russ Vaughn MD [address] [place] [address] PCP - General Internal Medicine 04/10/23 [employer] Est[employer] Relationship Specialty Start Date End Date Russ Vaughn MD [address] [place] [address] PCP - General Internal Medicine 04/10/23 [employer] Est[employer] Relationship Specialty Start Date End Date Russ Vaughn MD [address] [facility] [place] [address] PCP - General Internal Medicine 01/06/24 FOR [...] BE BASED ON THE PRIMARY CLINICAL RECORDS. [employer] [facility]. provides no warranty or guarantee of the accuracy or completeness of information in this document.
[2024-02-27 10:05] LABS: Basophils Absolute Auto 0.1 10^3/uL (0.0-0.1); Basophils Percent Auto 0.7 % (0.2-2.0); Eosinophils Absolute Auto 0.3 10^3/uL (0.0-0.7); Eosinophils Percent Auto 3.4 % (0.9-7.0); Hematocrit 34.2 % (36.0-48.0); Hemoglobin 11.5 g/dL (12.0-16.0); Immature Granulocytes Abs Auto 0.02 10^3/uL (0.00-0.03); Immature Granulocytes Pct Auto 0.3 % (0.0-0.5); Lymphocytes Absolute Auto 1.9 10^3/uL (1.2-3.8); Lymphocytes Percent Auto 25.8 % (20.5-60.0); Mean Corpuscular HGB Conc 33.6 g/dL (29.9-35.2); Mean Corpuscular Hemoglobin 29.6 pg (26.7-34.0); Mean Corpuscular Volume 88.1 fL (81.0-99.0); Mean Platelet Volume 9.8 fL (9.5-13.5); Monocytes Absolute Auto 0.6 10^3/uL (0.3-0.8); Monocytes Percent Auto 8.1 % (1.7-12.0); Neutrophils Absolute Auto 4.6 10^3/uL (1.4-6.5); Neutrophils Percent Auto 61.7 % (43.0-75.0); Platelet Count 278 10^3/uL (150-450); Red Blood Count 3.88 10^6/uL (4.20-5.40); Red Cell Distribution Width 13.4 % (11.0-15.0); White Blood Count 7.5 10^3/uL (4.0-11.0)
[2024-02-27 10:21] VITALS: BP 110/75; PULSE 62; O2SAT 98
[2024-02-27 10:30] LABS: Alanine Aminotransferase 16 U/L (14-59); Albumin Globulin Ratio 0.9; Albumin Level 3.4 g/dL (3.4-5.0); Alkaline Phosphatase 56 U/L (46-116); Aspartate Amino Transferase 10 U/L (15-37); BUN Creatinine Ratio 15.1; Bilirubin Total 0.3 mg/dL (0.2-1.0); Calcium 8.8 mg/dL (8.5-10.1); Carbon Dioxide 26.4 mmol/L (21.0-32.0); Chloride 103 mmol/L (98-107); Estimated GFR (African America >60 (>=60); Estimated GFR (Non-African Ame >60 (>=60); Globulin 3.6 g/dL; Glucose 98 mg/dL (74-106); Potassium 4.4 mmol/L (3.5-5.1); Sodium 137 mmol/L (136-145)
[2024-02-27 13:00] LABS: HCG Quantitative 41765 mIU/mL
--- NOTE | 2024-02-28 07:11 | ED.GENADUL1 ---
HPI HPI - General Adult General Chief complaint: Nausea/Vomiting/Diarrhea Stated complaint: NAUSEA Time Seen by Provider: 02/27/24 09:35 Source: patient Mode of arrival: walk-in History of Present Illness HPI narrative: The patient came to the ER just requesting to be tested for test, he mentioned that she have a home test that was positive although she did have menstruation, the patient denying abdominal pain or bleeding denying any other concerns Related Data Allergies Allergy/AdvReac Type Severity Reaction Status Date / Time No Known Drug Allergies Allergy Verified 02/27/24 09:32 Opioid HPI Opioid Management Most Recent Opioid Data: No Data to Display Review of Systems ROS Status of ROS 10 or more systems reviewed and unremarkable except as noted in history and below Exam Narrative Exam Narrative: Nurses notes and vital signs reviewed and patient is not hypoxic. General: Well-appearing and in no apparent distress. Skin: Warm, dry, no pallor noted. No rash. Head: Normocephalic, atraumatic. Neck: Supple, non-tender. Eye: Pupils are equal, round and EOMI. No scleral icterus. Ears, Nose, Mouth, and Throat: TM are clear, no nasal mucosal hypertrophy. Oral mucosa is moist, no posterior oropharynx erythema, uvula is mid-line Cardiovascular: Regular Rate and Rhythm without murmur, gallop or rub. Respiratory: No accessory muscle use or respiratory distress. Lungs are clear to auscultation, no wheezing, rales or rhonchi Chest Wall: no tenderness Back: No midline thoracic or lumbar vertebral tenderness. No CVA tenderness Musculoskeletal: normal ROM, no calf or popliteal tenderness, no lower extremity edema/swelling GI: Abdomen is soft, non-distended. Normal bowel sounds. No masses appreciated. No tenderness to palpation. No rebound, guarding, or rigidity noted. Neurological: A&O x4. No cranial nerve dysfunction observed. No truncal ataxia. Moves all extremities. Sensation intact. Psychiatric: Cooperative and interactive. Normal mood and affect. Constitutional Vital Signs, click to edit/add: Last Vital Signs Temp 99.1 F 02/27/24 09:30 Pulse 62 02/27/24 10:21 Resp 16 02/27/24 10:21 BP 110/75 02/27/24 10:21 Pulse Ox 98 02/27/24 10:21 O2 Del Method Room Air 02/27/24 10:21 Course Vital Signs Vital signs: Vital Signs Temperature 99.1 F 02/27/24 09:28 Pulse Rate 78 02/27/24 09:28 Respiratory Rate 116 H 02/27/24 09:28 Blood Pressure 119/65 02/27/24 09:28 Pulse Oximetry 100 02/27/24 09:28 Oxygen Delivery Method Room Air 02/27/24 09:28 Temperature 99.1 F 02/27/24 09:30 Pulse Rate 62 02/27/24 10:21 Respiratory Rate 16 02/27/24 10:21 Blood Pressure 110/75 02/27/24 10:21 Pulse Oximetry 98 02/27/24 10:21 Oxygen Delivery Method Room Air 02/27/24 10:21 Medical Decision Making MDM Narrative Medical decision making narrative: The patient CBC chemistry showed no acute pathology test showed an hcg level of 3 initially but with a corrected result from the lab the patient result was 41,000 Initially the patient was discharged because she have negative test but after the result came to be elevated she was called back and she was informed that she is she would like any further evaluation with the ultrasound she can either come here to the ER in case she is having any abdominal pain or vaginal bleeding or just follow-up with her OB doctor otherwise The patient is to follow up with primary care physician in next 2-3 days or to return to the emergency department should any of the signs or symptoms worsen or new symptoms develop. The patient agrees with the following Diagnosis and Treatment plan and the patient will be discharged home. Lab Data Labs: Lab Results 02/27/24 Range/Units 09:40 WBC 7.5 (4.0-11.0) 10^3/uL RBC 3.88 L (4.20-5.40) 10^6/uL Hgb 11.5 L (12.0-16.0) g/dL Hct 34.2 L (36.0-48.0) % MCV 88.1 (81.0-99.0) fL MCH 29.6 (26.7-34.0) pg MCHC 33.6 (29.9-35.2) g/dL RDW 13.4 (11.0-15.0) % Plt Count 278 (150-450) 10^3/uL MPV 9.8 (9.5-13.5) fL Neut % (Auto) 61.7 (43.0-75.0) % Lymph % (Auto) 25.8 (20.5-60.0) % [place] % (Auto) 8.1 (1.7-12.0) % Eos % (Auto) 3.4 (0.9-7.0) % Baso % (Auto) 0.7 (0.2-2.0) % Neut # (Auto) 4.6 (1.4-6.5) 10^3/uL Lymph # (Auto) 1.9 (1.2-3.8) 10^3/uL [place] # (Auto) 0.6 (0.3-0.8) 10^3/uL Eos # (Auto) 0.3 (0.0-0.7) 10^3/uL Baso # (Auto) 0.1 (0.0-0.1) 10^3/uL Abs Immat Gran (auto) 0.02 (0.00-0.03) 10^3/uL Imm/Tot Granulo (auto) 0.3 (0.0-0.5) % Sodium 137 (136-145) mmol/L Potassium 4.4 (3.5-5.1) mmol/L Chloride 103 (98-107) mmol/L Carbon Dioxide 26.4 (21.0-32.0) mmol/L Anion Gap 12.0 BUN 8.0 (7.0-18.0) mg/dL Creatinine 0.53 L (0.55-1.02) mg/dL Est GFR ( Amer) >60 (>=60) Est GFR (Non-Af Amer) >60 (>=60) BUN/Creatinine Ratio 15.1 Glucose 98 (74-106) mg/dL Calcium 8.8 (8.5-10.1) mg/dL Total Bilirubin 0.3 (0.2-1.0) mg/dL AST 10 L (15-37) U/L ALT 16 (14-59) U/L Alkaline Phosphatase 56 (46-116) U/L Total Protein 7.0 (6.4-8.2) g/dL Albumin 3.4 (3.4-5.0) g/dL Globulin 3.6 g/dL Albumin/Globulin Ratio 0.9 HCG, Quant 29372 mIU/mL Blood Type O Positive Antibody Screen Negative Discharge Plan Discharge Stand Alone Forms: Portal Instructions Chief Complaint: Nausea/Vomiting/Diarrhea Clinical Impression: History of miscarriage Patient Disposition: Home, Self-Care Time of Disposition Decision: 11:09 Condition: Good Mode of Transportation: Private Vehicle Print Language: Yoruba Instructions: Miscarriage (ED) Referrals: Physician,Non-Staff, MD [Primary Care Provider] - 1 week Discharge Date/Time: 02/27/24 11:16
== END 2024-02-27 11:16 | disposition home or self-care (01) ==
PROVIDERS: Emergency Provider Emergency Medicine
DX: Z32.01 Encounter for pregnancy test, result positive (principal)
CPT/HCPCS: 36415; 80053; 84702; 85025; 86850; 86900; 86901; 99283

== ENCOUNTER 2024-03-13 17:27 | Emergency (ER) | payer OTHER, SELFPAY ==
[2024-03-13 17:46] VITALS: BP 107/78; PULSE 75; TEMP 37.1; O2SAT 100; BMI 27.8
--- OUTSIDE RECORDS SUMMARY | 2024-03-13 17:47 | XMS_ITS | CCD ---
Author Organization [facility] Care Team Providers Care Education And Training Coordinator Name Role Phone REQUEST, DR NONE LISTED Primary Care Unavaila van SUAREZ, DR AMADOR Admitting Unavailable ERICK, DR AMADOR Attending Unavailable ERICK, DR AMADRO Consulting Unavailable Barb Woodard Unavailable Russ Vaughn MD Primary Care Provider [phone] Rsus Vaughn MD Primary Care Provider SHARON VASQUEZ [...] Unavailable RODERICK, MUHAMID M Primary Care Unavailable Medications Current Medications Medication Drug Class(es) [...] sources) Serotonin Reuptake Inhibitor Start: 4 End: 02-20-202 4 take 1 tablet by mouth in [...] 4 MG 1 tablet ODT tid prn Jun, Not-Taking Problems Active Problems Problem Classification Problem [...] 24 ABSOLUTE BASOPHIL 0.1 X10E9/L Normal 0.0-0.2 [facility] Comment on above: Performed By: #### N UM #### [facility] ([id number]) [address] [place] [address] 09972 ABSOLUTE NEUTROPHIL 7.3 X10E9/L High 1.5-6.6 [facility] Comment on above: Performed By: #### N UM #### [facility] ([id number]) [address] [place] [address] 32483 Basophils/100 WBC (Bld) 0.8 % Normal [facility] Comment on above: Performed By: #### N UM #### [facility] ([id number]) [address] [place] [address] 65500 Eosinophils (Bld) [#/Vol] 0.7 10*3/uL High 0.0-0.4 [facility] Comment on above: Performed By: #### N UM #### [facility] ([id number]) [address] [place] [address] 85929 Eosinophils/100 WBC (Bld) 7.2 % Normal [facility] Comment on above: Performed By: #### N UM #### [facility] ([id number]) [address] [place] [address] 38403 Erythrocyte distribution width (RBC) [Ratio] 13.7 % Normal 11.5-15.0 [facility] Comment on above: Performed By: #### N UM #### [facility] ([id number]) [address] [place] [address] 47617 Hematocrit (Bld) [Volume fraction] 42.5 % Normal 35-47 [facility] Comment on above: Performed By: #### N UM #### [facility] ([id number]) [address] [place] [address] 03742 Hemoglobin (Bld) [Mass/Vol] 14.5 g/dL Normal 11.7-15.5 [facility] Comment on above: Performed By: #### N UM #### [facility] ([id number]) [address] [place] [address] 71567 Lymphocytes (Bld) [#/Vol] 1.4 10*3/uL Normal 1.0-3.5 [facility] Comment on above: Performed By: #### N UM #### [facility] ([id number]) [address] [place] [address] 76865 Lymphocytes/100 WBC (Bld) 14.2 % Normal [facility] Comment on above: Performed By: #### N UM #### [facility] ([id number]) [address] [place] [address] 16090 MCH (RBC) [Entitic mass] 29.5 pg Normal 27-34 [facility] Comment on above: Performed By: #### N UM #### [facility] ([id number]) [address] [place] [address] 98986 MCHC (RBC) [Mass/Vol] 34.1 g/dL Normal 32-36 [facility] Comment on above: Performed By: #### N UM #### [facility] ([id number]) [address] [place] [address] 45744 MCV (RBC) [Entitic vol] 86 fL Normal 80-100 [facility] Comment on above: Performed By: #### N UM #### [facility] ([id number]) [address] [place] [address] 97279 Monocytes (Bld) [#/Vol] 0.5 10*3/uL Normal 0-0.9 [facility] Comment on above: Performed By: #### N UM #### [facility] ([id number]) [address] [place] [address] 67336 Monocytes/100 WBC (Bld) 5.5 % Normal [facility] Comment on above: Performed By: #### N UM #### [facility] ([id number]) [address] [place] [address] 11930 Neutrophils/100 WBC (Bld) 72.3 % Normal [facility] Comment on above: Performed By: #### N UM #### [facility] ([id number]) [address] [place] [address] 29286 Platelet mean volume (Bld) [Entitic vol] 8.0 fL Normal 7-12 [facility] Comment on above: Performed By: #### N UM #### [facility] ([id number]) [address] [place] [address] 21416 Platelets (Bld) [#/Vol] 362 10*3/uL Normal 150-450 [facility] Comment on above: Performed By: #### N UM #### [facility] ([id number]) [address] [place] [address] 72928 RBC COUNT 4.93 X10E12/L Normal 3.80-5.20 [facility] Comment on above: Performed By: #### N UM #### [facility] ([id number]) [address] [place] [address] 51623 WBC (Bld) [#/Vol] 10.0 10*3/uL Normal 4.0-11.0 [facility] Comment on above: Performed By: #### N UM #### [facility] ([id number]) [address] [place] [address] 72951 CK [Catalytic activity/Vol]o n 01-11-2024 CPK 53 U/L Normal 24-170 [facility] Comment on above: Performed By: #### C BCA, CMP, 5643-2, 57832-2, 29877-7, THYR #### [facility] ([id number]) [address] [place] [address] 71095 COMPREHENSIVE METABOLIC PANE Elvin 01-11-2024 Albumin [Mass/Vol] 4.9 g/dL Normal 3.2-5.3 [facility] Comment on above: Performed By: #### N UM #### [facility] ([id number]) [address] [place] [address] 65828 ALP [Catalytic activity/Vol] 83 U/L Normal 39-130 [facility] Comment on above: Performed By: #### N UM #### [facility] ([id number]) [address] [place] [address] 55606 ALT [Catalytic activity/Vol] 104 U/L High 0-31 [facility] Comment on above: Performed By: #### N UM #### [facility] ([id number]) [address] [place] [address] 33352 Anion gap [Moles/Vol] 10 mmol/L Normal 5-15 [facility] Comment on above: Performed By: #### N UM #### [facility] ([id number]) [address] [place] [address] 86429 AST [Catalytic activity/Vol] 48 U/L High 0-41 [facility] Comment on above: Performed By: #### N UM #### [facility] ([id number]) [address] [place] [address] 73721 Bilirubin [Mass/Vol] 0.5 mg/dL Normal 0.3-1.2 [facility] Comment on above: Performed By: #### N UM #### [facility] ([id number]) [address] [place] [address] 79673 Calcium [Mass/Vol] 9.8 mg/dL Normal 8.5-10.5 [facility] Comment on above: Performed By: #### N UM #### [facility] ([id number]) [address] [place] [address] 02644 Chloride [Moles/Vol] 101 mmol/L Normal 98-109 [facility] Comment on above: Performed By: #### N UM #### [facility] ([id number]) [address] [place] [address] 34128 CO2 [Moles/Vol] 25 mmol/L Normal 22-32 [facility] Comment on above: Performed By: #### N UM #### [facility] ([id number]) [address] [place] [address] 30840 Creatinine [Mass/Vol] 0.60 mg/dL Normal 0.40-1.00 [facility] Comment on above: Result Comment: METH OD TRACEABLE TO IDMS STANDARD Performed By: #### N UM #### [facility] ([id number]) [address] [place] [address] 20671 eGFR (CKD-EPI) NON-RACE DEPENDENT >90 Normal >59 [facility] Comment on above: Result Comment: Reported eGFR is based on the CKD-EPI 2020 equation that does not use a race coefficient. Performed By: #### N UM #### [facility] ([id number]) [address] [place] [address] 01790 Glucose [Mass/Vol] 82 mg/dL Normal 65-99 [facility] Comment on above: Performed By: #### N UM #### [facility] ([id number]) [address] [place] [address] 58653 Potassium [Moles/Vol] 4.2 mmol/L Normal 3.5-5.0 [facility] Comment on above: Performed By: #### N UM #### [facility] ([id number]) [address] [place] [address] 46904 Protein [Mass/Vol] 8.5 g/dL High 6.0-8.0 [facility] Comment on above: Performed By: #### N UM #### [facility] ([id number]) [address] [place] [address] 82156 Sodium [Moles/Vol] 136 mmol/L Normal 134-146 [facility] Comment on above: Performed By: #### N UM #### [facility] ([id number]) [address] [place] [address] 89131 Urea nitrogen [Mass/Vol] 13 mg/dL Normal 5-23 [facility] Comment on above: Performed By: #### N UM #### [facility] ([id number]) [address] [place] [address] [place] [address] CRP [Mass/Vol]on 01-11-2024 C REACTIVE PROTEIN 1.2 mg/dL High 0.000-0.744 [facility] Comment on above: Performed By: #### N UM #### [facility] ([id number]) [address] [place] [address] [place] [address] LDH [Catalytic activity/Vol] on 01-11-2024 LDH 245 U/L High 100-235 [facility] Comment on above: Performed By: #### N UM #### [facility] ([id number]) [address] [place] [address] [place] [address] MAGNESIUMon 01-11-2024 Magnesium [Mass/Vol] 1.9 mg/dL Normal 1.8-2.6 [facility] Comment on above: Performed By: #### N UM #### [facility] ([id number]) [address] [place] [address], [place] [address] PHOSPHORUSon 01-11-2024 Phosphate [Mass/Vol] 3.7 mg/dL Normal 2.4-4.9 [facility] Comment on above: Performed By: #### C QUIQUE, [facility], 5643-2, 42057-3, 29489-9, THYR #### [facility] ([id number]) [address] [place] [address] 90329 Prolactin [Mass/Vol]on 01-10 PROLACTIN 6.7 ng/mL Normal 3.3-26.7 [facility] Comment on above: Performed By: #### C QUIQUE, [facility], 5643-2, 51871-5, 92068-6, THYR #### [facility] ([id number]) [address] [place] [address] 21272 TSH WITH REFLEXon 01-11-2024 TSH 0.74 uIU/mL Normal 0.49-4.67 [facility] Comment on above: Performed By: #### C QUIQUE, [facility], 5643-2, 27742-1, 83525-7, THYR #### [facility] ([id number]) [address] [place] [address] 42033 CBC AND AUTO DIFFon 01-06-20 24 ABSOLUTE BASOPHIL 0.1 X10E9/L Normal 0.0-0.2 [facility] Comment on above: Performed By: #### N UM #### [facility] ([id number]) [address] [place] [address] 37496 ABSOLUTE NEUTROPHIL 9.8 X10E9/L High 1.5-6.6 [facility] Comment on above: Performed By: #### N UM #### [facility] ([id number]) [address] [place] [address] 21764 Basophils/100 WBC (Bld) 0.6 % Normal [facility] Comment on above: Performed By: #### N UM #### [facility] ([id number]) [address] [place] [address] 00690 Eosinophils (Bld) [#/Vol] 0.4 10*3/uL Normal 0.0-0.4 [facility] Comment on above: Performed By: #### N UM #### [facility] ([id number]) [address] [place] [address] 23910 Eosinophils/100 WBC (Bld) 3.4 % Normal [facility] Comment on above: Performed By: #### N UM #### [facility] ([id number]) [address] [place] [address] 67522 Erythrocyte distribution width (RBC) [Ratio] 13.8 % Normal 11.5-15.0 [facility] Comment on above: Performed By: #### N UM #### [facility] ([id number]) [address] [place] [address] 03601 Hematocrit (Bld) [Volume fraction] 40.1 % Normal 35-47 [facility] Comment on above: Performed By: #### N UM #### [facility] ([id number]) [address] [place] [address] 65908 Hemoglobin (Bld) [Mass/Vol] 13.5 g/dL Normal 11.7-15.5 [facility] Comment on above: Performed By: #### N UM #### [facility] ([id number]) [address] [place] [address] 94536 Lymphocytes (Bld) [#/Vol] 1.3 10*3/uL Normal 1.0-3.5 [facility] Comment on above: Performed By: #### N UM #### [facility] ([id number]) [address] [place] [address] 62105 Lymphocytes/100 WBC (Bld) 10.8 % Normal [facility] Comment on above: Performed By: #### N UM #### [facility] ([id number]) [address] [place] [address] 89641 MCH (RBC) [Entitic mass] 28.6 pg Normal 27-34 [facility] Comment on above: Performed By: #### N UM #### [facility] ([id number]) [address] [place] [address] 07340 MCHC (RBC) [Mass/Vol] 33.6 g/dL Normal 32-36 [facility] Comment on above: Performed By: #### N UM #### [facility] ([id number]) [address] [place] [address] 73418 MCV (RBC) [Entitic vol] 85 fL Normal 80-100 [facility] Comment on above: Performed By: #### N UM #### [facility] ([id number]) [address] [place] [address] 61368 Monocytes (Bld) [#/Vol] 0.9 10*3/uL Normal 0-0.9 [facility] Comment on above: Performed By: #### N UM #### [facility] ([id number]) [address] [place] [address] 72702 Monocytes/100 WBC (Bld) 6.9 % Normal [facility] Comment on above: Performed By: #### N UM #### [facility] ([id number]) [address] [place] [address] 41216 Neutrophils/100 WBC (Bld) 78.3 % Normal [facility] Comment on above: Performed By: #### N UM #### [facility] ([id number]) [address] [place] [address] 36250 Platelet mean volume (Bld) [Entitic vol] 7.5 fL Normal 7-12 [facility] Comment on above: Performed By: #### N UM #### [facility] ([id number]) [address] [place] [address] 99108 Platelets (Bld) [#/Vol] 354 10*3/uL Normal 150-450 [facility] Comment on above: Performed By: #### N UM #### [facility] ([id number]) [address] [place] [address] 13831 RBC COUNT 4.71 X10E12/L Normal 3.80-5.20 [facility] Comment on above: Performed By: #### N UM #### [facility] ([id number]) [address] [place] [address] 01611 WBC (Bld) [#/Vol] 12.5 10*3/uL High 4.0-11.0 [facility] Comment on above: Performed By: #### N UM #### [facility] ([id number]) [address] [place] [address] 14372 COMPREHENSIVE METABOLIC PANE Elvin 01-06-2024 Albumin [Mass/Vol] 4.4 g/dL Normal 3.2-5.3 [facility] Comment on above: Performed By: #### N UM #### [facility] ([id number]) [address] [place] [address] 43954 ALP [Catalytic activity/Vol] 60 U/L Normal 39-130 [facility] Comment on above: Performed By: #### N UM #### [facility] ([id number]) [address] [place] [address] 91000 ALT [Catalytic activity/Vol] 38 U/L High 0-31 [facility] Comment on above: Performed By: #### N UM #### [facility] ([id number]) [address] [place] [address] 30602 Anion gap [Moles/Vol] 7 mmol/L Normal 5-15 [facility] Comment on above: Performed By: #### N UM #### [facility] ([id number]) [address] [place] [address] 79721 AST [Catalytic activity/Vol] 27 U/L Normal 0-41 [facility] Comment on above: Performed By: #### N UM #### [facility] ([id number]) [address] [place] [address] 57022 Bilirubin [Mass/Vol] 0.4 mg/dL Normal 0.3-1.2 [facility] Comment on above: Performed By: #### N UM #### [facility] ([id number]) [address] [place] [address] 55473 Calcium [Mass/Vol] 9.0 mg/dL Normal 8.5-10.5 [facility] Comment on above: Performed By: #### N UM #### [facility] ([id number]) [address] [place] [address] 22596 Chloride [Moles/Vol] 103 mmol/L Normal 98-109 [facility] Comment on above: Performed By: #### N UM #### [facility] ([id number]) [address] [place] [address] 55587 CO2 [Moles/Vol] 23 mmol/L Normal 22-32 [facility] Comment on above: Performed By: #### N UM #### [facility] ([id number]) [address] [place] [address] 71197 Creatinine [Mass/Vol] 0.75 mg/dL Normal 0.40-1.00 [facility] Comment on above: Result Comment: METH OD TRACEABLE TO IDMS STANDARD Performed By: #### N UM #### [facility] ([id number]) [address] [place] [address] 16811 eGFR (CKD-EPI) NON-RACE DEPENDENT >90 Normal >59 [facility] Comment on above: Result Comment: Reported eGFR is based on the CKD-EPI 2020 equation that does not use a race coefficient. Performed By: #### N UM #### [facility] ([id number]) [address] [place] [address] 88844 Glucose [Mass/Vol] 91 mg/dL Normal 65-99 [facility] Comment on above: Performed By: #### N UM #### [facility] ([id number]) [address] [place] [address] 17459 Potassium [Moles/Vol] 3.9 mmol/L Normal 3.5-5.0 [facility] Comment on above: Performed By: #### N UM #### [facility] ([id number]) [address] [place] [address] 68193 Protein [Mass/Vol] 8.3 g/dL High 6.0-8.0 [facility] Comment on above: Performed By: #### N UM #### [facility] ([id number]) [address] [place] [address] 49099 Sodium [Moles/Vol] 133 mmol/L Low 134-146 [facility] Comment on above: Performed By: #### N UM #### [facility] ([id number]) [address] [place] [address] 22845 Urea nitrogen [Mass/Vol] 16 mg/dL Normal 5-23 [facility] Comment on above: Performed By: #### N UM #### [facility] ([id number]) [address] [place] [address] 02945 EDPROVon 01-06-2024 EDPROV HPI Chief Complaint Patient [...] Lilian Ellington (more content not included)... Normal [facility] Glucose Glucometer (BldC) [M ass/Vol]on 01-06-2024 Glucose [Mass/Vol] 85 mg/dL Normal 65-99 [facility] Lactate (P nancy) [Moles/Vol]o n 01-06-2024 LACTATE W/REFLEX 2.1 mmol/L High 0.4-2.0 [facility] Comment on above: Performed By: #### N UM #### [facility] ([id number]) [address] [place] [address] 55682 TROPONIN Ion 01-06-2024 Troponin I.cardiac [Mass/Vol] 0.01 ng/mL Normal 0.00-0.04 [facility] Comment on above: Performed By: #### N UM #### [facility] ([id number]) [address] [place] [address] 70927 CBC AND AUTO DIFFon 12-27-19 ABSOLUTE BASOPHIL 0.1 X10E9/L Normal 0.0-0.2 [facility] Comment on above: Performed By: #### C BCA, CMP, 5643-2, 07134-9, 28092-9, THYR #### [facility] ([id number]) [address] [place] [address] 50262 ABSOLUTE NEUTROPHIL 7.8 X10E9/L High 1.5-6.6 [facility] Comment on above: Performed By: #### C BCA, CMP, 5643-2, 41177-2, 55734-0, THYR #### [facility] ([id number]) [address] [place] [address] 03245 Basophils/100 WBC (Bld) 1.3 % Normal [facility] Comment on above: Performed By: #### C BCA, CMP, 5643-2, 08027-8, 82806-8, THYR #### [facility] ([id number]) [address] [place] [address] 96812 Eosinophils (Bld) [#/Vol] 0.8 10*3/uL High 0.0-0.4 [facility] Comment on above: Performed By: #### C BCA, CMP, 5643-2, 26720-0, 55374-5, THYR #### [facility] ([id number]) [address] [place] [address] 01760 Eosinophils/100 WBC (Bld) 7.8 % Normal [facility] Comment on above: Performed By: #### C BCA, CMP, 5643-2, 16781-7, 33625-7, THYR #### [facility] ([id number]) [address] [place] [address] 95818 Erythrocyte distribution width (RBC) [Ratio] 13.3 % Normal 11.5-15.0 [facility] Comment on above: Performed By: #### C BCA, CMP, 5643-2, 99162-7, 99312-6, THYR #### [facility] ([id number]) [address] [place] [address] 15131 Hematocrit (Bld) [Volume fraction] 38.5 % Normal 35-47 [facility] Comment on above: Performed By: #### C BCA, CMP, 5643-2, 85649-0, 37065-8, THYR #### [facility] ([id number]) [address] [place] [address] 50930 Hemoglobin (Bld) [Mass/Vol] 13.2 g/dL Normal 11.7-15.5 [facility] Comment on above: Performed By: #### C BCA, CMP, 5643-2, 37420-0, 87211-8, THYR #### [facility] ([id number]) [address] [place] [address] 02801 Lymphocytes (Bld) [#/Vol] 1.3 10*3/uL Normal 1.0-3.5 [facility] Comment on above: Performed By: #### Dhruv BCA, CMP, 5643-2, 80588-8, 33581-8, THYR #### [facility] ([id number]) [address] [place] [address] 86879 Lymphocytes/100 WBC (Bld) 12.0 % Normal [facility] Comment on above: Performed By: #### C QUIQUE, CMP, 5643-2, 05501-1, 12400-0, THYR #### [facility] ([id number]) [address] [place] [address] 29695 MCH (RBC) [Entitic mass] 29.7 pg Normal 27-34 [facility] Comment on above: Performed By: #### C QUIQUE, CMP, 5643-2, 38425-0, 55074-9, THYR #### [facility] ([id number]) [address] [place] [address] 77796 MCHC (RBC) [Mass/Vol] 34.4 g/dL Normal 32-36 [facility] Comment on above: Performed By: #### C QUIQUE, CMP, 5643-2, 14935-7, 90723-7, THYR #### [facility] ([id number]) [address] [place] [address] 66149 MCV (RBC) [Entitic vol] 87 fL Normal 80-100 [facility] Comment on above: Performed By: #### C QUIQUE, [facility], 5643-2, 86901-2, 91429-7, THYR #### [facility] ([id number]) [address] [place] [address] 74062 Monocytes (Bld) [#/Vol] 0.6 10*3/uL Normal 0-0.9 [facility] Comment on above: Performed By: #### C BCA, CMP, 5643-2, 74449-5, 37513-3, THYR #### [facility] ([id number]) [address] [place] [address] 88744 Monocytes/100 WBC (Bld) 6.0 % Normal [facility] Comment on above: Performed By: #### C BCA, CMP, 5643-2, 73855-9, 75520-7, THYR #### [facility] ([id number]) [address] [place] [address] 90055 Neutrophils/100 WBC (Bld) 72.9 % Normal [facility] Comment on above: Performed By: #### C BCA, CMP, 5643-2, 43094-7, 47098-6, THYR #### [facility] ([id number]) [address] [place] [address] 14155 Platelet mean volume (Bld) [Entitic vol] 7.4 fL Normal 7-12 [facility] Comment on above: Performed By: #### C BCA, CMP, 5643-2, 91698-5, 20875-6, THYR #### [facility] ([id number]) [address] [place] [address] 91842 Platelets (Bld) [#/Vol] 332 10*3/uL Normal 150-450 [facility] Comment on above: Performed By: #### C BCA, CMP, 5643-2, 98901-9, 13964-9, THYR #### [facility] ([id number]) [address] [place] [address] 59530 RBC COUNT 4.45 X10E12/L Normal 3.80-5.20 [facility] Comment on above: Performed By: #### C BCA, CMP, 5643-2, 77295-2, 90760-3, THYR #### [facility] ([id number]) [address] [place] [address] 16210 WBC (Bld) [#/Vol] 10.6 10*3/uL Normal 4.0-11.0 [facility] Comment on above: Performed By: #### C BCA, CMP, 5643-2, 21706-0, 09542-4, THYR #### [facility] ([id number]) [address] [place] [address] 99910 COMPREHENSIVE METABOLIC PANE Elvin 12-27-2023 Albumin [Mass/Vol] 4.3 g/dL Normal 3.2-5.3 [facility] Comment on above: Performed By: #### C BCA, CMP, 5643-2, 48431-0, 35148-1, THYR #### [facility] ([id number]) [address] [place] [address] 99401 ALP [Catalytic activity/Vol] 75 U/L Normal 39-130 [facility] [facility] Comment on above: Performed By: #### C BCA, CMP, 5643-2, 20689-4, 44902-6, THYR #### [facility] ([id number]) [address] [place] [address] 68385 ALT [Catalytic activity/Vol] 18 U/L Normal 0-31 [facility] Comment on above: Performed By: #### C BCA, CMP, 5643-2, 18240-0, 75577-6, THYR #### [facility] ([id number]) [address] [place] [address] 58233 Anion gap [Moles/Vol] 7 mmol/L Normal 5-15 [facility] Comment on above: Performed By: #### C BCA, CMP, 5643-2, 10210-0, 20820-5, THYR #### [facility] ([id number]) [address] [place] [address] 51456 AST [Catalytic activity/Vol] 27 U/L Normal 0-41 [facility] Comment on above: Performed By: #### C BCA, CMP, 5643-2, 22943-2, 01912-0, THYR #### [facility] ([id number]) [address] [place] [address] 49951 Bilirubin [Mass/Vol] 0.5 mg/dL Normal 0.3-1.2 [facility] Comment on above: Performed By: #### C BCA, CMP, 5643-2, 53853-3, 81323-2, THYR #### [facility] ([id number]) [address] [place] [address] 50935 Calcium [Mass/Vol] 8.6 mg/dL Normal 8.5-10.5 [facility] Comment on above: Performed By: #### C BCA, CMP, 5643-2, 35737-0, 64545-2, THYR #### [facility] ([id number]) [address] [place] [address] 28549 Chloride [Moles/Vol] 106 mmol/L Normal 98-109 [facility] Comment on above: Performed By: #### C BCA, CMP, 5643-2, 60260-7, 92526-6, THYR #### [facility] ([id number]) [address] [place] [address] 73319 CO2 [Moles/Vol] 22 mmol/L Normal 22-32 [facility] Comment on above: Performed By: #### C BCA, CMP, 5643-2, 38735-0, 90869-3, THYR #### [facility] ([id number]) [address] [place] [address] 40473 Creatinine [Mass/Vol] 0.70 mg/dL Normal 0.40-1.00 [facility] Comment on above: Result Comment: METH OD TRACEABLE TO IDMS STANDARD Performed By: #### C BCA, CMP, 5643-2, 43341-4, 61628-4, THYR #### [facility] ([id number]) [address] [place] [address] 93547 eGFR (CKD-EPI) NON-RACE DEPENDENT >90 Normal >59 [facility] Comment on above: Result Comment: Reported eGFR is based on the CKD-EPI 2020 equation that does not use a race coefficient. Performed By: #### C BCA, CMP, 5643-2, 96283-5, 54360-5, THYR #### [facility] ([id number]) [address] [place] [address] 41440 Glucose [Mass/Vol] 105 mg/dL High 65-99 [facility] Comment on above: Performed By: #### C BCA, CMP, 5643-2, 70281-9, 92602-6, THYR #### [facility] ([id number]) [address] [place] [address] 61349 Potassium [Moles/Vol] 3.7 mmol/L Normal 3.5-5.0 [facility] Comment on above: Performed By: #### C BCA, CMP, 5643-2, 57071-4, 74389-0, THYR #### [facility] ([id number]) [address] [place] [address] 03441 Protein [Mass/Vol] 8.1 g/dL High 6.0-8.0 [facility] Comment on above: Performed By: #### C BCA, CMP, 5643-2, 58725-9, 07065-8, THYR #### [facility] ([id number]) [address] [place] [address] 81898 Sodium [Moles/Vol] 135 mmol/L Normal 134-146 [facility] Comment on above: Performed By: #### C BCA, CMP, 5643-2, 91392-6, 08960-6, THYR #### [facility] ([id number]) [address] [place] [address] 77279 Urea nitrogen [Mass/Vol] 13 mg/dL Normal 5-23 [facility] Comment on above: Performed By: #### C BCA, CMP, 5643-2, 54634-6, 77779-1, THYR #### [facility] ([id number]) [address] [place] [address] CT [address] CONT[address] BRAIN WO CONT CT BRAIN WO [...] Mooney MD on 12/27/2023 11:39 AM Normal [facility] DRUG SCREEN, URINEon 024 AMPHETAMINE/METHAMP Negative Normal NEG [facility] Comment on above: Result Comment: AMPH /METH screening cut off = 1000 ng/mL Performed By: #### D WALLS #### [facility] ([id number]) [address] [place] [address] 83278 BARBITURATES Negative Normal NEG [facility] Comment on above: Result Comment: Evonne iturates screening cut off value = 200 ng/mL Performed By: #### D WALLS #### [facility] ([id number]) [address] [place] [address] 22945 BENZODIAZEPINES Negative Normal NEG [facility] Comment on above: Result Comment: Silas odiazepines screening cut off value = 200 ng/mL Performed By: #### D WALLS #### [facility] ([id number]) [address] [place] [address] 96148 CANNABINOIDS Positive Abnormal NEG [facility] Comment on above: Result Comment: Conf irmation available upon request. Cannabinoids/THC screening cut off value = 50 ng/mL Performed By: #### D WALLS #### [facility] ([id number]) [address] [place] [address] 39896 COCAINE METABOLITE Negative Normal NEG [facility] Comment on above: Result Comment: Coca ine screening cut off value = 300 ng/mL Performed By: #### D WALLS #### [facility] ([id number]) [address] [place] [address] 01230 ECSTASY Negative Normal NEG [facility] Comment on above: Result Comment: Ecst asy screening cut off value = 500 ng/mL This report is intended for use in clinical monitoring or management of patients. Performed By: #### D WALLS #### [facility] ([id number]) [address] [place] [address] 16697 METHADONE Negative Normal NEG [facility] Comment on above: Result Comment: Meth adone screening cut off value = 300 ng/mL. Performed By: #### D WALLS #### [facility] ([id number]) [address] [place] [address] 60284 OPIATES Negative Normal NEG [facility] Comment on above: Result Comment: Opia kami screening cut off value = 300 ng/mL NOTE: This test is used for the detection of codeine, hydrocodone (>1000 ng/mL), morphine and hydromorphone (>900 ng/mL) in urine. Performed By: #### D WALLS #### [facility] ([id number]) [address] [place] [address] 20200 OXYCODONE Negative Normal NEG [facility] Comment on above: Result Comment: Oxyc odone screening cut off value = 300 ng/mL NOTE: This test is used for the detection of oxycodone and oxymorphone in urine. Performed By: #### D WALLS #### [facility] ([id number]) [address] [place] [address] 57536 PHENCYCLIDINE Negative Normal NEG [facility] Comment on above: Result Comment: Phen cyclidine screening cut off value = 25 ng/mL Performed By: #### D WALLS #### [facility] ([id number]) [address] [place] [address] 48764 ETHANOLon 12-27-2023 Ethanol [Mass/Vol] mg/dL Normal 0.00-0.08 [facility] Comment on above: Result Comment: This report is intended for use in clinical monitoring or management of patients. Performed By: #### C QUIQUE, CMP, 5643-2, 34518-0, 49465-1, THYR #### [facility] ([id number]) [address] [place] [address] 77143 HCG ( test) Ql (U)o n 12-27-2023 Beta HCG ( test) Ql (U) Negative Normal NEG [facility] Comment on above: Performed By: #### 2 106-3 #### [facility] ([id number]) [address] [place] [address] 74960 MAGNESIUMon 12-27-2023 Magnesium [Mass/Vol] 2.3 mg/dL Normal 1.8-2.6 [facility] Comment on above: Performed By: #### C BCA, CMP, 5643-2, 61750-6, 56865-5, THYR #### [facility] ([id number]) [address] [place] [address] 34492 THYROID PROFILEon 12-27-2023 Free T4 [Mass/Vol] 0.83 ng/dL Normal 0.61-1.60 [facility] Comment on above: Performed By: #### C BCA, CMP, 5643-2, 26886-3, 66780-0, THYR #### [facility] ([id number]) [address] [place] [address] [place] [address] TSH 1.78 uIU/mL Normal 0.49-4.67 [facility] Comment on above: Performed By: #### C QUIQUE, SYED, 5643-2, 08025-0, 47612-9, THYR #### [facility] ([id number]) [address] [place] [address] 61672 TROPONIN Ion 12-27-2023 Troponin I.cardiac [Mass/Vol] 0.02 ng/mL Normal 0.00-0.04 [facility] Comment on above: Performed By: #### C QUIQUE, CMP, 5643-2, 99587-2, 63840-0, THYR #### [facility] ([id number]) [address] [place] [address] 83811 URN MACROSCOPIC NURon 2023 BILIRUBIN KRISTA Negative Normal NEG [facility] Comment on above: Performed By: #### N UM #### [facility] ([id number]) [address] [place] [address] [place] [address] BLOOD/HGB KRISTA Negative Normal NEG [facility] Comment on above: Performed By: #### N UM #### [facility] ([id number]) [address] [place] [address] [place] [address] GLUCOSE KRISTA Negative Normal NEG [facility] Comment on above: Performed By: #### N UM #### [facility] ([id number]) [address] [place] [address] [place] [address] KETONES KRISTA Negative Normal NEG [facility] Comment on above: Performed By: #### N UM #### [facility] ([id number]) [address] [place] [address] [place] [address] LEUKOCYTE ESTERASE KRISTA Negative Normal NEG [facility] Comment on above: Performed By: #### N UM #### [facility] ([id number]) [address] [place] [address] 25927 NITRITE KRISTA Negative Normal NEG [facility] Comment on above: Performed By: #### N UM #### [facility] ([id number]) [address] [place] [address] 59757 PH KRISTA 6.0 Normal 5.0-8.5 [facility] Comment on above: Performed By: #### N UM #### [facility] ([id number]) [address] [place] [address] 63474 PROTEIN KRISTA 30 mg/dL Abnormal NEG [facility] Comment on above: Performed By: #### N UM #### [facility] ([id number]) [address] [place] [address] 38962 SPECIFIC GRAVITY KRISTA 1.025 Normal 1.003-1.035 [facility] Comment on above: Performed By: #### N UM #### [facility] ([id number]) [address] [place] [address] 49887 UROBILINOGEN KRISTA 0.2 eu/dL Normal <1.1 [facility] Comment on above: Performed By: #### N UM #### [facility] ([id number]) [address] [place] [address] 52990 AMYLASEon 09-25-2022 Amylase [Catalytic activity/Vol] 56 U/L Normal 25-115 [facility] Comment on above: Performed By: #### A MY, CMP, LIPA #### [facility] [address] [place] [address] Dr. Hanh Cervantes CBC AUTO DIFFon 09-25-2022 BASO # 0.1 103/ul Normal 0.0-0.1 [facility] Comment on above: Performed By: #### C BC #### [facility] [address] [place] [address] Dr. Hanh Cervantes Basophils/100 WBC (Bld) 0.5 % Normal 0.2-2.0 [facility] Comment on above: Performed By: #### C BC #### [facility] [address] [address] [address] Hanh Cervantes EO # 0.1 103/ul Normal 0.0-0.7 [facility] Comment on above: Performed By: #### C BC #### [facility] [address] [place] [address] Dr. Hanh Cervantes Eosinophils/100 WBC (Bld) 0.5 % Critically low 0.9-7.0 [facility] Comment on above: Performed By: #### C BC #### [facility] [address] [place] [address] Dr. Hanh Cervantes Erythrocyte distribution width (RBC) [Ratio] 12.4 % Normal 11.0-15.0 [facility] Comment on above: Performed By: #### C BC #### [facility] [address] [place] [address] Dr. Hanh Cervantes Hematocrit (Bld) [Volume fraction] 42.1 % Normal 36.0-48.0 [facility] Comment on above: Performed By: #### C BC #### [facility] [address] [place] [address] Dr. Hanh Cervantes Hemoglobin (Bld) [Mass/Vol] 14.3 g/dL Normal 12.0-16.0 [facility] Comment on above: Performed By: #### C BC #### [facility] [address] [place] [address] Dr. Hanh Cervantes IG # 0.04 10e3/ul Critically high 0.00-0.03 [facility] Comment on above: Performed By: #### C BC #### [facility] [address] [place] [address] Dr. Hanh Cervantes IG % 0.3 % Normal 0.0-0.5 [facility] Comment on above: Performed By: #### C BC #### [facility] [address] [place] [address] Dr. Hanh Cervantes LYMPH # 1.1 103/ul Critically low 1.2-3.8 [facility] Comment on above: Performed By: #### C BC #### [facility] [address] [place] [address] Dr. Hanh Cervantes Lymphocytes/100 WBC (Bld) 9.7 % Critically low 20.5-60.0 [facility] Comment on above: Performed By: #### C BC #### [facility] [address] [place] [address] Dr. Hanh Cervantes MANUAL DIFF REQ NO Normal [facility] Comment on above: Performed By: #### C BC #### [facility] [address] [place] [address] Dr. Hanh Cervantes MCH (RBC) [Entitic mass] 28.9 pg Normal 26.7-34.0 [facility] Comment on above: Performed By: #### C BC #### [facility] [address] [place] [address] Dr. Hanh Cervantes MCHC (RBC) [Mass/Vol] 34.0 g/dL Normal 29.9-35.2 [facility] Comment on above: Performed By: #### C BC #### [facility] [address] [place] [address] Dr. Hanh Cervantes MCV (RBC) [Entitic vol] 85.2 fL Normal 81.0-99.0 [facility] Comment on above: Performed By: #### C BC #### [facility] [address] [place] [address] Dr. Hanh Cervantes MONO # 0.5 103/ul Normal 0.3-0.8 [facility] Comment on above: Performed By: #### C BC #### [facility] [address] [place] [address] Dr. Hanh Cervantes Monocytes/100 WBC (Bld) 4.4 % Normal 1.7-12.0 [facility] Comment on above: Performed By: #### C BC #### [facility] [address] [place] [address] Dr. Hanh Cervantes NEUT # 9.9 103/ul Critically high 1.4-6.5 [facility] Comment on above: Performed By: #### C BC #### [facility] [address] [address] [address] Hanh Cervantes Neutrophils/100 WBC (Bld) 84.6 % Critically high 43.0-75.0 [facility] Comment on above: Performed By: #### C BC #### [facility] [address] [address] [address] Hanh Cervantes Platelet mean volume (Bld) [Entitic vol] 10.1 fL Normal 9.5-13.5 [facility] Comment on above: Performed By: #### C BC #### [facility] [address] [address] [address] Hanh Cervantes PLT 368 103/ul Normal 150-450 [facility] Comment on above: Performed By: #### C BC #### [facility] [address] [place] [address] Dr. Hanh Cervantes RBC 4.94 106/ul Normal 4.20-5.40 [facility] Comment on above: Performed By: #### C BC #### [facility] [address] [place] [address] Dr. Hanh Cervantes WBC 11.7 103/ul Critically high 4.0-11.0 [facility] Comment on above: Performed By: #### C BC #### [facility] [address] [place] [address] Dr. Hanh Cervantes LIPASEon 09-25-2022 Lipase [Catalytic activity/Vol] 82.0 U/L Normal 73.0-393.0 [facility] Comment on above: Performed By: #### A MY, CMP, LIPA #### [facility] [address] [place] [address] Dr. Hanh Cervantes PROF 14(COMP METB)on 022 Albumin [Mass/Vol] 4.6 g/dL Normal 3.4-5.0 [facility] Comment on above: Performed By: #### A MY, CMP, LIPA #### [facility] [address] [place] [address] Dr. Hanh Cervantes Albumin/Globulin [Mass ratio] 1.1 {ratio} Normal [facility] Comment on above: Performed By: #### A MY, CMP, LIPA #### [facility] [address] [address] [address] Hanh Cervantes ALP [Catalytic activity/Vol] 88 U/L Normal 46-116 [facility] Comment on above: Performed By: #### A MY, CMP, LIPA #### [facility] [address] [address] [address] Hanh Cervantes ALT [Catalytic activity/Vol] 45 U/L Normal 14-59 [facility] Comment on above: Performed By: #### A MY, CMP, LIPA #### [facility] [address] [address] [address] Hanh Cervantes Anion gap [Moles/Vol] 14.7 mmol/L Normal [facility] Comment on above: Performed By: #### A MY, CMP, LIPA #### [facility] [address] [place] [address] Dr. Hanh Cervantes AST [Catalytic activity/Vol] 24 U/L Normal 15-37 [facility] Comment on above: Performed By: #### A MY, CMP, LIPA #### [facility] [address] [address] [address] Hanh Cervantes Bilirubin [Mass/Vol] 0.6 mg/dL Normal 0.2-1.0 [facility] Comment on above: Performed By: #### A MY, CMP, LIPA #### [facility] [address] [place] [address] Dr. Hanh Cervantes Calcium [Mass/Vol] 9.4 mg/dL Normal 8.5-10.1 [facility] Comment on above: Performed By: #### A MY, CMP, LIPA #### [facility] [address] [place] [address] Dr. Hanh Cervantes Chloride [Moles/Vol] 100 mmol/L Normal 98-107 [facility] Comment on above: Performed By: #### A MY, CMP, LIPA #### [facility] [address] [place] [address] Dr. Hanh Cervantes CO2 [Moles/Vol] 25.9 mmol/L Normal 21.0-32.0 [facility] Comment on above: Performed By: #### A MY, CMP, LIPA #### [facility] [address] [address] [address] Hanh Cervantes Creatinine [Mass/Vol] 0.78 mg/dL Normal 0.55-1.02 [facility] Comment on above: Performed By: #### A MY, CMP, LIPA #### [facility] [address] [address] [address] Hanh Cervantes EGFR-AF SWEDISH >60 Normal >=60 [facility] Comment on above: Performed By: #### A MY, CMP, LIPA #### [facility] [address] [address] [address] Hanh Cervantes EGFR-NON AF SWEDISH >60 Normal >=60 [facility] Comment on above: Performed By: #### A MY, CMP, LIPA #### [facility] [address] [address] [address] Hanh Cervantes Globulin (S) [Mass/Vol] 4.3 g/dL Normal [facility] Comment on above: Performed By: #### A MY, CMP, LIPA #### [facility] [address] [address] [address] Hanh Cervantes Glucose [Mass/Vol] 117 mg/dL Critically high 74-106 [facility] Comment on above: Performed By: #### A MY, CMP, LIPA #### [facility] [address] [address] [address] Hanh Cervantes Potassium [Moles/Vol] 3.6 mmol/L Normal 3.5-5.1 [facility] Comment on above: Performed By: #### A MY, CMP, LIPA #### [facility] [address] [address] [address] Hanh Cervantes Protein [Mass/Vol] 8.9 g/dL Critically high 6.4-8.2 [facility] Comment on above: Performed By: #### A MY, CMP, LIPA #### [facility] [address] [address] [address] Hanh Cervantes Sodium [Moles/Vol] 137 mmol/L Normal 136-145 [facility] Comment on above: Performed By: #### A MY, CMP, LIPA #### [facility] [address] [address] [address] Hanh Cervantes Urea nitrogen [Mass/Vol] 9.0 mg/dL Normal 7.0-18.0 [facility] Comment on above: Performed By: #### A MY, CMP, LIPA #### [facility] [address] [address] [address] Hanh Cervantes Urea nitrogen/Creatinine [Mass ratio] 11.5 mg/mg Normal [facility] Comment on above: Performed By: #### A MY, CMP, LIPA #### [facility] [address] [address] [address] Hanh Cervantes Vital Signs Date Time Vital Sign Value Performing Clinician Facility 07-22-2023 16:40-0400 Body height 160.02 cm Barb Woodard Other [facility] Other 07-22-2023 16:40-0400 Body mass index (BMI) [Ratio] 27.99 kg/m2 Barb Woodard Other [facility] Other 07-22-2023 16:40-0400 Body temperature 99.7 [degF] Barb Woodard Other [facility] Other 07-22-2023 16:40-0400 Body weight 71.67 kg Barb Woodard Other [facility] Other 07-22-2023 16:40-0400 Diastolic blood pressure 83 mm[Hg] Barb Woodard Other [facility] Other 07-22-2023 16:40-0400 Respiratory rate 18 /min Barb oWodard Other [facility] [employer] Other 07-22-2023 16:40-0400 SaO2% (BldA) [Mass fraction] 99 % Barb Woodard Other [facility] Other 07-22-2023 16:40-0400 Systolic blood pressure 119 mm[Hg] Barb Woodard Other [facility] Other Encounters Encounter Date Encounter Type Care Provider Facility Start: 02-23-2024 End: 02-24-2024 ambulatory [facility] Start: 02-02-2024 End: 02-02-2024 ambulatory CELINA KEITH Not Available Start: 01-29-2024 End: 01-29-2024 [facility] Start: 01-11-2024 End: [facility] Start: 01-11-2024 End: 01-11-2024 ambulatory [facility] Start: 01-07-2024 Orders Only Russ aVughn MD Work Phone: [facility] Comment on above: Seizure (CMS-HCC) (P rimary Dx); Muscle cramp Start: 01-06-2024 Emergency department patient visit [facility] Start: 01-06-2024 End: 01-06-2024 Emergency department patient visit [facility] Start: 01-06-2024 End: 01-06-2024 Emergency department patient visit RUSS Schulz [facility] Start: 12-28-2023 Telephone encounter Kathrin [facility] Comment on above: New Patient Appt. Start: 12-27-2023 End: 12-28-2023 Emergency department patient visit KOSTA Araiza [facility] Start: 11-24-2023 End: 11-24-[address] [facility] Start: 11-24-2023 End: 11-24-2023 Office outpatient visit 25 minutes Russ Vaughn MD Work Phone: [facility] Comment on above: Anxiety (Primary Dx) ; Depression, unspecified depression type Start: 10-26-2023 End: 10-26-2023 ambulatory CELINA KEITH Not Available Start: 10-08-2023 ambulatory RUSS VAUGHN [facility] Start: 10-08-2023 End: 10-08-2023 Office outpatient visit 15 minutes Russ Vaughn MD Work Phone: [facility] Comment on above: Generalized anxiety disorder Start: 08-31-2023 End: 08-31-2023 ambulatory CELINA KEIHT Not Available Start: 07-22-2023 End: 07-22-2023 ambulatory Barb Woodard Other [facility] Other Start: 07-22-2023 Office outpatient vi sit [...] Td Vaccines (8 - Td or Tdap) [facility] Start: 01-05-2025 Adult BMI Screening Adult BMI Screen ing [facility] Start: 01-05-2025 Tobacco Screening Tobacco Screening [facility] Start: 12-26-2024 Adult BMI Screening Adult BMI Screen ing [facility] Start: 12-26-2024 Tobacco Screening Tobacco Screening [facility] Start: 11-24-2024 Depression Screening Depression Scre ening [facility] Start: 11-24-2024 Tobacco Screening Tobacco Screening [facility] Start: 09-09-2024 Tobacco Screening Tobacco Screening [facility] Start: 08-25-2024 Adult BMI Screening Adult BMI Screen ing [facility] Start: 06-05-2024 Influenza vaccination Influenza Vacc ine [facility] Start: 01-29-2024 End: 01-29-2024 Patient encounter procedure 01/29/2024 1:30 PM EDT Office Visit [facility] [address] [place] [id number] Kosta Keyes, MEDIA [employer]IAISON OFFICER-[employer] [address] [place] [address] Faith Sharma MD [address] [place] [address], [address] [phone] [facility] Start: 01-07-2024 End: 01-06-2025 CBC W Auto Differential panel - Blood CBC auto differential Lab Routine Seizure (FORBES [facility] Muscle cramp Expected: 01/07/2024 (Approximate), Expires: 01/06/2025 [facility] Work Phone: Comment on above: Expected: 01/07/2024 (Approximate), Expires: 01/06/2025 Start: 01-07-2024 End: 01-06-2025 Comprehensive metabolic 2000 panel - Serum or Plasma Comprehensive metabolic panel Lab Routine Seizure ([facility]) Muscle cramp Expected: 01/07/2024 (Approximate), Expires: 01/06/2025 [facility] Comment on above: Expected: 01/07/2024 (Approximate), Expires: 01/06/2025 Start: 01-07-2024 End: 01-06-2025 Magnesium [Mass/volume] in Serum or Plasma Magnesium Lab Routine Seizure ([facility]) Muscle cramp Expected: 01/07/2024 (Approximate), Expires: 01/06/2025 [facility] Comment on above: Expected: 01/07/2024 (Approximate), Expires: 01/06/2025 Start: 01-07-2024 End: 01-06-2025 Phosphate [Mass/volume] in Serum or Plasma Phosphorus Lab Routine Seizure ([facility]) Muscle cramp Expected: 01/07/2024 (Approximate), Expires: 01/06/2025 [facility] Comment on above: Expected: 01/07/2024 (Approximate), Expires: 01/06/2025 Start: 01-07-2024 End: 01-06-2025 TSH with Reflex TSH with Reflex Lab Routine Seizure ([facility]) Muscle cramp Expected: 01/07/2024 (Approximate), Expires: 01/06/2025 [facility] Comment on above: Expected: 01/07/2024 (Approximate), Expires: 01/06/2025 Start: 10-02-2023 Depression Screening Depression Scre ening [facility] Start: 06-05-2023 Influenza vaccination Influenza Vacc ine [facility] Start: 2021 Screening for malign ant neoplasm of cervix Pap Smear [facility] Start: 2018 Adult BMI Follow Up Plan Adult BMI Follow Up Plan [facility] Start: 2000 Screening for Chlamy yuli trachomatis Chlamydia Screening [facility] End: 01-06-2025 C-reactive protein C-reactive protein Lab Routine Seizure ([facility]) Muscle cramp 1 Occurrences starting 01/07/2024 until 01/06/2025 [facility] Comment on above: 1 Occurrences starti ng 01/07/2024 until 01/06/2025 End: 01-06-2025 CK Total CK Total Lab Routine Seizure ([facility]) Muscle cramp 1 Occurrences starting 01/07/2024 until 01/06/2025 [facility] Comment on above: 1 Occurrences starti ng 01/07/2024 until 01/06/2025 End: 01-06-2025 LDH LDH Lab Routine Seizure ([facility]) Muscle cramp 1 Occurrences starting 01/07/2024 until 01/06/2025 [facility] Comment on above: 1 Occurrences starti ng 01/07/2024 until 01/06/2025 End: 01-06-2025 Prolactin level Prolactin level Lab Routine Seizure ([facility]) Muscle cramp 1 Occurrences starting 01/07/2024 until 01/06/2025 [facility] Comment on above: 1 Occurrences starti ng 01/07/2024 until 01/06/2025 Immunizations Immunization Date Immunization Notes Care Provider Shade milian 05-18-2017 meningococcal polysaccharide (groups A, C, Y and W-135) diphtheria toxoid conjugate vaccine (MCV4P) Russ Vaughn MD Work Phone: [facility] 05-18-2017 tetanus toxoid, redu al diphtheria toxoid, and acellular pertussis vaccine, adsorbed Russ Vaughn MD Work Phone: [facility] 06-16-2012 hepatitis A vaccine, pediatric/adolescent dosage, 2 dose schedule Russ Vaughn MD Work Phone: [facility] 06-16-2012 human papilloma viru s vaccine, quadrivalent Russ Vaughn MD Work Phone: [facility] 06-16-2012 tetanus toxoid, redu al diphtheria toxoid, and acellular pertussis vaccine, adsorbed Russ Vaughn MD Work Phone: [facility] 05-08-2005 diphtheria, tetanus toxoids and acellular pertussis vaccine, unspecified formulation Russ Vaughn MD Work Phone: [facility] 05-08-2005 measles, mumps and rubella virus vaccine Russ Vaughn MD Work Phone: [facility] 05-08-2005 pneumococcal conjuga te vaccine, 7 valent Russ Vaughn MD Work Phone: [facility] 05-08-2005 poliovirus vaccine, inactivated Russ Vaughn MD Work Phone: [facility] 05-30-2003 varicella virus vaccine Kris Vaughn MD Work Phone: [facility] Work Phone: 04-14-2001 diphtheria, tetanus toxoids and acellular pertussis vaccine, unspecified formulation Russ Vaughn MD Work Phone: [facility] 04-14-2001 haemophilus influenz ae type b vaccine, conjugate unspecified formulation Russ Vaughn MD Work Phone: [facility] 04-14-2001 measles, mumps and rubella virus vaccine Russ Vaughn MD Work Phone: [facility] 2000 diphtheria, tetanus toxoids and acellular pertussis vaccine, unspecified formulation Russ Vaughn MD Work Phone: [facility] 2000 hepatitis B vaccine, pediatric or pediatric/adolescent dosage Russ Vaughn MD Work Phone: [facility] 2000 poliovirus vaccine, inactivated Russ Vaughn MD Work Phone: [facility] 2000 diphtheria, tetanus toxoids and acellular pertussis vaccine, unspecified formulation Russ Vaughn MD Work Phone: [facility] 2000 haemophilus influenz ae type b vaccine, conjugate unspecified formulation Russ Vaughn MD Work Phone: [facility] 2000 hepatitis B vaccine, pediatric or pediatric/adolescent dosage Russ Vaughn MD Work Phone: [facility] 2000 poliovirus vaccine, inactivated Russ Vaughn MD Work Phone: [facility] 2000 diphtheria, tetanus toxoids and acellular pertussis vaccine, unspecified formulation Russ Vaughn MD Work Phone: [facility] 2000 haemophilus influenz ae type b vaccine, conjugate unspecified formulation Russ Vaughn MD Work Phone: [facility] 2000 hepatitis B vaccine, pediatric or pediatric/adolescent dosage Russ Vaughn MD Work Phone: [facility] 2000 poliovirus vaccine, unspecified formulation Russ Vaughn MD Work Phone: [facility] 2000 hepatitis B vaccine, pediatric or pediatric/adolescent dosage Russ Vaughn MD Work Phone: [facility] NEGATED: Highlighted row has not occurred!10-16-2022 Influenza Vaccine, Quadrivalent, Adjuvanted Russ Vaughn MD Work Phone: [facility] Comment on above: Deferred: Patient de cision Payers Date Payer Category Payer Private Health Insurance [id number] 2022 Private Health Insurance [facility] [id number] 2022-Present [phone] [address] [address] [place] [address] [id number] 2000 Unknown [id number]. 2.1285 2000 Unknown [id number] [id number]. 2.1285 2000 Unknown [id number] [id number]. 2.1285 2000 Unknown [id number] [id number]. 2.9 2000 Unknown [id number] 2.16.840.1.556510.3.579. 2.9 2000 Unknown [id number] 2.16.840.1.864489.3.579. 2.1259 2000 Unknown [id number] [id number]. 2.1285 2000 Unknown [id number] [id number]. 2.6 2000 Unknown [id number] 2.16.840.1.068919.3.579. 2.1285 2000 Unknown [id number] 2.16.840.1.440400.3.579. 2.1286 2000 Unknown [id number] 2.16.840.1.062853.3.579. 2.1286 2000 Unknown [id number] [id number]. 2.1286 1974 Unknown [id number]. 2.593 1959 Self-pay Social History Date Type Detail Facility Unknown if ever smoked [facility] Other Start: 10-08-2023 End: 01-06-2024 Sex Assigned At [facility] Start: 10-02-[address] [facility] Ex-smoker [facility] End: 10-05-2020 History of tobacco use Current smoker [facility] End: 10-05-2020 History of tobacco use Cigarette Smoker [facility] Start: 10-02-2022 Tobacco use and exposure Smokeless tobacco non-user [facility] Start: 10-08-2023 End: 01-06-2024 Alcohol intake Current drinker of alcohol (finding) [facility] Start: 10-08-2023 End: 01-06-2024 History of Social function [facility] How hard is it for y ou to pay for the very basics like food, housing, medical care, and heating Not very hard [facility] Adolescent depressio n screening assessment 0 [facility] Start: 10-02-2022 Alcohol Comment rarely [facility] Start: 2000 Sex Assigned At Not on file P [facility] Clinical Notes 07-22-2023 to 12-28-2023 Telephone Encounter - Kathrin Daggett - 12/28/2023 8:48 AM EDTTelephone Encounter - Kathrin Daggett - 12/28/2023 8:48 AM Phyllis Vaughn MD [...] COMP? - No 3. WHAT INSURANCE? - [facility] 4. HAVE YOU EVER BEEN SEEN BY A NEUROLOGIST BEFORE? IF YES, WHO AND WHEN? IS THIS A SECOND OPINION? - No 5. PATIENT IS SCHEDULED ON/WITH: - 01/29/2024 at 1:30pm with Dr. Sharma in [place]. Patient's requested Merna and requested . documented in this encounter [facility] 12-28-2023 Telephone encount er Note Please ask the following questions to the new patient that you are schedulin. IS THIS DUE TO AN ACCIDENT? - No 2. IS THIS WORKER'S COMP? - No 3. WHAT INSURANCE? - [facility] 4. HAVE YOU EVER BEEN SEEN BY A NEUROLOGIST BEFORE? IF YES, WHO AND WHEN? IS THIS A SECOND OPINION? - No 5. PATIENT IS SCHEDULED ON/WITH: - 01/29/2024 at 1:30pm with Dr. Sharma in [place]. Patient's requested Merna and requested . [facility] 11-24-2023 History of Presen t illness Narrative Images from the original note were not included. [address] [place] [id number] Patient: Yolanda Villanueva Date of : [...] Visit via Real-time Synchronous Audiovisual Provider Location: [facility] [address] [place] [phone] Patient Location: Patient's home Video Visit Consent [...] that there are some limitations compared to [id number] evaluations. The patient consented to the presence of additional virtual and/or in-person participants. We elected to proceed. RUSS VAUGHN MD Family Medicine Physician [facility] 11/24/23 This note was completed with voice recognition software. The document was reviewed for errors however some may still be present. Please do not hesitate to contact/Epic msg the author to verify any questions/concerns. documented in this encounter [facility] 10-08-2023 History of Presen t illness Narrative Images from the original note were not included. [address] [place] [phone] Patient: Yolanda Villanueva Date of : [...] Visit via Real-time Synchronous Audiovisual Provider Location: [facility] [address] [place] [phone] Patient Location: Patient's home Video Visit Consent [...] that there are some limitations compared to [id number]-budy evaluations. The patient consented to the presence of additional virtual and/or in-person participants. We elected to proceed. RUSS VAUGHN MD Family Medicine Physician [facility] / [facility] 10/08/23 This note was completed with voice recognition software. The document was reviewed for errors however some may still be present. Please do not hesitate to contact/Epic [facility] the author to verify any questions/concerns. documented in this encounter [facility] 07-22-2023 Evaluation note Encounter Date Diagnosis Assessment [...] declines urinalysis, declines test, denies suspicion of [facility] Other Evaluation note* Diagnosis Generalized anxiety disorder [facility] Diagnosis Anxiety- Primary Anxiety state, unspecified Depression, unspecified depression type [facility] ([facility])- Primary Other convulsions Muscle cramp Cramp of limb [facility] - Reported* Type Description Date Medical History Hiatal hernia Medical History ulcers Surgical History double scope 2022 [facility] Other InstructionsNot on filedocumented in this encounter [...] DATE CREATED AUTHOR AUTHOR'S ORGANIZ ATION 01/21/2024 [facility] DATE CREATED AUTHOR AUTHOR'S ORGANIZ ATION 02/04/2024 [facility] EPIC DATE CREATED AUTHOR AUTHOR'S ORGANIZ ATION 02/28/2024 [facility] REASON FOR VISIT (unrecogniz ed section and content) Reason Comments Anxiety Reason Comments Medication Problem Anxiety medications not working Reason Onset Date Comments New Patient Appt. 12/28/2023 Care Teams (unrecognized sec tion and content) Education And Training Coordinator Relationship Specialty Start Date End Date Russ Vaughn MD [address] [place] [address] PCP - General Internal Medicine 04/10/23 Education And Training Coordinator Relationship Specialty Start Date End Date Russ Vaughn MD [address] [place] [address] PCP - General Internal Medicine 04/10/23 Education And Training Coordinator Relationship Specialty Start Date End Date Russ Vaughn MD [address] [place] [address] PCP - General Internal Medicine 04/10/23 Education And Training Coordinator Relationship Specialty Start Date End Date Russ Vaughn MD [address] [place] [address] PCP - General Internal Medicine 01/06/24 FOR [...] BE BASED ON THE PRIMARY CLINICAL RECORDS. [employer] provides no warranty or guarantee of the accuracy or completeness of information in this document.
--- NOTE | 2024-03-13 17:54 | US_ITS ---
The [address] [address] Patient Name: SHERI BOOTHE MRN: [id number] date: 2000 Sex: F Assigned Patient Location: ED.MAIN Current Patient Location: ED.MAIN Accession/Order Number: [id number] Exam Date: 03/13/2024 17:55 Report Date: 03/13/2024 19:48 At the request of: JOSÉ MIGUEL DOMINGUEZ Procedure: US OB transvaginal EXAM: US OB transvaginal HISTORY: vaginal bleeding COMPARISON: None. TECHNIQUE: Ultrasound obstetrical first trimester. FINDINGS: Within the endometrium is a gestational sac measuring approximately 2.7 x 2.5 x 2.3 cm containing internal debris and septations. No pole is identified. No cardiac activity. No free fluid within the pelvis. The right ovary measures 3.7 x 3.3 x 2.7 cm. The left ovary measures 3.7 x 3.2 x 2.7 cm. Appropriate arterial and venous waveforms noted within the ovaries bilaterally. Normal bilateral resistive indices. US/US OB transvaginal IMPRESSION: 1. There is an intrauterine gestational sac containing internal debris and septations. No pole is identified. No evidence of cardiac activity. Findings are likely secondary to demise. Based on the gestational sac diameter, estimated gestational age of 7 weeks and 1 day. Recommend correlation with beta-hCG levels. 2. Normal appearance of the ovaries bilaterally with appropriate blood flow. No adnexal masses. Electronically authenticated by: JANET SCHRADER Date: 03/13/2024 19:48
--- NOTE | 2024-03-13 17:57 | ED_ITS ---
HPI - Female Genitourinary General Chief complaint: Vaginal Bleeding Stated complaint: Issues 8-10 wks Time Seen by Provider: 03/13/24 17:35 Source: patient Mode of arrival: walk-in Limitations: no limitations History of Present Illness HPI Narrative: Patient is a 23-year-old female who presents to the emergency department for vaginal bleeding that she has noticed when she strains to have a bowel movement. She has not had any fevers or vomiting. She is about 8 to 10 weeks . She was seen in this emergency department 2 weeks ago and diagnosed with with a quantitative hCG level over 41,000 and an old positive blood type. She reports mild abdominal cramping and she has not passed any blood clots. She is very confident that the bleeding is not rectal. She has no urinary symptoms. She has a history of previous miscarriage which is her primary concern. Related Data Allergies Allergy/AdvReac Type Severity Reaction Status Date / Time No Known Drug Allergies Allergy Verified 02/27/24 09:32 Review of Systems ROS Constitutional Denies: fever or chills Ears, nose, mouth, and throat Denies: throat pain or nasal congestion Cardiovascular Denies: chest pain Respiratory Denies: shortness of breath Gastrointestinal Denies: nausea or vomiting Musculoskeletal Denies: back pain Integumentary/Breast Denies: rash Hematologic/Lymphatic Denies: easy bruising or easy bleeding Exam Narrative Exam Narrative: Gen.: Awake, alert, in no distress Head: Normocephalic, atraumatic ENT: Moist mucous membranes Respiratory: No respiratory distress Gastrointestinal: Abdomen is soft, nondistended and nontender to palpation /Rectal: Vaginal and rectal exam performed with Frank Lao RN at bedside throughout the duration of the exam. Patient with no active vaginal bleeding. Small external hemorrhoid noted at the rectum with no thrombosis or active bleeding. Extremities: Moves extremities equally Psych: Normal mood and affect Neuro: No focal neuro deficit Skin: Warm, dry, intact Constitutional Vital Signs, click to edit/add: Last Vital Signs Temp 98.8 F 03/13/24 17:46 Pulse 75 03/13/24 17:46 Resp 18 03/13/24 17:46 BP 107/78 03/13/24 17:46 Pulse Ox 100 03/13/24 17:46 O2 Del Method Room Air 03/13/24 17:46 Course Vital Signs Vital signs: Vital Signs Temperature 98.8 F 03/13/24 17:46 Pulse Rate 75 03/13/24 17:46 Respiratory Rate 18 03/13/24 17:46 Blood Pressure 107/78 03/13/24 17:46 Pulse Oximetry 100 03/13/24 17:46 Oxygen Delivery Method Room Air 03/13/24 17:46 Temperature 98.8 F 03/13/24 17:46 Pulse Rate 75 03/13/24 17:46 Respiratory Rate 18 03/13/24 17:46 Blood Pressure 107/78 03/13/24 17:46 Pulse Oximetry 100 03/13/24 17:46 Oxygen Delivery Method Room Air 03/13/24 17:46 MDM - Female Genitourinary MDM Narrative Medical decision making narrative: Rectal and vaginal exam performed with nursing at bedside, no active hemorrhage noted. Lab studies obtained, patient has blood type O+ from previous visit, though quantitative hCG level has gone down significantly today from previous. Ultrasound shows gestational sac in the uterus with no cardiac activity consistent with demise. 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 Return to the emergency department if symptoms change or worsen Medical Records Attestation: I reviewed the patient's medical records. Lab Data Attestation: I reviewed the patient's lab results. Labs: Lab Results 03/13/24 03/13/24 Range/Units 17:54 18:02 WBC 7.1 (4.0-11.0) 10^3/uL RBC 4.12 L (4.20-5.40) 10^6/uL Hgb 12.1 (12.0-16.0) g/dL Hct 36.4 (36.0-48.0) % MCV 88.3 (81.0-99.0) fL MCH 29.4 (26.7-34.0) pg MCHC 33.2 (29.9-35.2) g/dL RDW 12.9 (11.0-15.0) % Plt Count 265 (150-450) 10^3/uL MPV 9.3 L (9.5-13.5) fL Neut % (Auto) 60.7 (43.0-75.0) % Lymph % (Auto) 24.5 (20.5-60.0) % [place] % (Auto) 10.8 (1.7-12.0) % Eos % (Auto) 2.8 (0.9-7.0) % Baso % (Auto) 0.8 (0.2-2.0) % Neut # (Auto) 4.3 (1.4-6.5) 10^3/uL Lymph # (Auto) 1.7 (1.2-3.8) 10^3/uL [place] # (Auto) 0.8 (0.3-0.8) 10^3/uL Eos # (Auto) 0.2 (0.0-0.7) 10^3/uL Baso # (Auto) 0.1 (0.0-0.1) 10^3/uL Abs Immat Gran (auto) 0.03 (0.00-0.03) 10^3/uL Imm/Tot Granulo (auto) 0.4 (0.0-0.5) % HCG, Quant 5942 mIU/mL Urine Color Lt. yellow (YELLOW) Urine Clarity Clear (CLEAR) Urine pH 6.5 (5.0-9.0) Ur Specific [place] 1.020 (1.005-1.025) Urine Protein Negative (NEG/TRACE) mg/dL Urine Glucose (UA) Negative (NEGATIVE) mg/dL Urine Ketones Negative (NEGATIVE) mg/dL Urine Occult Blood Large A (NEGATIVE) Urine Nitrite Negative (NEGATIVE) Urine Bilirubin Negative (NEGATIVE) Urine Urobilinogen 0.2 (0.2-1.0) EU/dL Ur Leukocyte Esterase Negative (NEGATIVE) Urine RBC 2-5 A (0-2) #/HPF Urine WBC 0-2 A (NONE SEEN) #/HPF Ur Squamous Epith Cells Few A (NONE/RARE) #/LPF Urine Crystals None seen (None Seen) #/HPF Urine Bacteria Trace A (NONE SEEN) #/HPF Urine Casts None seen (NONE SEEN) #/LPF Urine Mucus None seen (NONE SEEN) Ur Culture Indicated? No Imaging Data US - abdomen: Attestation: I have reviewed the pertinent imaging results. Radiologist's impression: ITS Impressions Transvaginal US 03/13/24 17:54 IMPRESSION: 1. There is an intrauterine gestational sac containing internal debris and septations. No pole is identified. No evidence of cardiac activity. Findings are likely secondary to demise. Based on the gestational sac diameter, estimated gestational age of 7 weeks and 1 day. Recommend correlation with beta-hCG levels. 2. Normal appearance of the ovaries bilaterally with appropriate blood flow. No adnexal masses. Electronically authenticated by: JANET SCHRADER Date: 03/13/2024 19:36 Discharge Plan Discharge Stand Alone Forms: Portal Instructions Chief Complaint: Vaginal Bleeding Clinical Impression: demise Patient Disposition: Home, Self-Care Time of Disposition Decision: 19:43 Condition: Good Print Language: Luxembourgish Instructions: Miscarriage (ED) Referrals: Jhonathan Montgomery DO [Physician] - As soon as possible Physician,Non-Staff, MD [Primary Care Provider] - 1 week
[2024-03-13 18:10] LABS: Basophils Absolute Auto 0.1 10^3/uL (0.0-0.1); Basophils Percent Auto 0.8 % (0.2-2.0); Eosinophils Absolute Auto 0.2 10^3/uL (0.0-0.7); Eosinophils Percent Auto 2.8 % (0.9-7.0); Hematocrit 36.4 % (36.0-48.0); Hemoglobin 12.1 g/dL (12.0-16.0); Immature Granulocytes Abs Auto 0.03 10^3/uL (0.00-0.03); Immature Granulocytes Pct Auto 0.4 % (0.0-0.5); Lymphocytes Absolute Auto 1.7 10^3/uL (1.2-3.8); Lymphocytes Percent Auto 24.5 % (20.5-60.0); Mean Corpuscular HGB Conc 33.2 g/dL (29.9-35.2); Mean Corpuscular Hemoglobin 29.4 pg (26.7-34.0); Mean Corpuscular Volume 88.3 fL (81.0-99.0); Mean Platelet Volume 9.3 fL (9.5-13.5); Monocytes Absolute Auto 0.8 10^3/uL (0.3-0.8); Monocytes Percent Auto 10.8 % (1.7-12.0); Neutrophils Absolute Auto 4.3 10^3/uL (1.4-6.5); Neutrophils Percent Auto 60.7 % (43.0-75.0); Platelet Count 265 10^3/uL (150-450); Red Blood Count 4.12 10^6/uL (4.20-5.40); Red Cell Distribution Width 12.9 % (11.0-15.0); White Blood Count 7.1 10^3/uL (4.0-11.0)
[2024-03-13 18:15] LABS: Bilirubin Urine NEGATIVE (NEGATIVE); Blood Urine LARGE (NEGATIVE); Clarity Urine CLEAR (CLEAR); Color Urine LT. YELLOW (YELLOW); Glucose Urine UA NEGATIVE (NEGATIVE); Ketones Urine NEGATIVE (NEGATIVE); Leukocyte Esterase Urine NEGATIVE (NEGATIVE); Nitrite Urine NEGATIVE (NEGATIVE); Protein Urine NEGATIVE (NEG/TRACE); Urine Microscopic Indicated YES; Urobilinogen Urine 0.2 EU/dL (0.2-1.0); pH Urine 6.5 (5.0-9.0)
[2024-03-13 18:23] LABS: Bacteria Urine TRACE #/HPF (NONE SEEN); Cast Seen? NONE SEEN #/LPF (NONE SEEN); Crystals Seen? None Seen #/HPF (None Seen); Mucus Urine NONE SEEN (NONE SEEN); Squamous Epithelial Cell Urine FEW #/LPF (NONE/RARE); Urine Culture Indicated NO; WBC Urine 0-2 #/HPF (NONE SEEN)
[2024-03-13 18:46] LABS: HCG Quantitative 5942 mIU/mL
== END 2024-03-13 19:56 | disposition home or self-care (01) ==
PROVIDERS: Physician Assistant; Emergency Provider Emergency Medicine
DX: O02.1 Missed abortion (principal)
CPT/HCPCS: 36415; 76817; 81001; 84702; 85025; 99284

== ENCOUNTER 2024-06-20 09:35 | Emergency (ER) | payer OTHER, SELFPAY ==
[2024-06-20 09:42] VITALS: BP 131/85; PULSE 101; TEMP 37.2; O2SAT 98; BMI 30.9
--- NOTE | 2024-06-20 09:47 | XR_ITS ---
The [address] [address] Patient Name: SHERI BOOTHE MRN: [id number] date: 2000 Sex: F Assigned Patient Location: ER Current Patient Location: ER Accession/Order Number: [id number] Exam Date: 06/20/2024 09:55 Report Date: 06/20/2024 10:35 At the request of: JAMAICA FRAZIER Procedure: XR foot LT min 3V EXAM: XR foot LT min 3V HISTORY: injury c/o pain COMPARISON: Left ankle series dated 06/20/2024. TECHNIQUE: AP, oblique and lateral views of the left foot performed. FINDINGS: The bony alignment is anatomic. The bone mineralization is normal. There is no fracture. The joint spaces are normal. There is an accessory ossicle adjacent to the cuboid. There is moderate soft tissue swelling adjacent to the lateral malleolus. XR/XR foot LT min 3V IMPRESSION: There is no acute fracture or malalignment. There is moderate soft tissue swelling adjacent to the lateral malleolus. Electronically authenticated by: MISHA ROTH Date: 06/20/2024 10:35
--- NOTE | 2024-06-20 09:47 | XR_ITS ---
The [address] [address] Patient Name: SHERI BOOTHE MRN: [id number] date: 2000 Sex: F Assigned Patient Location: ER Current Patient Location: ER Accession/Order Number: [id number] Exam Date: 06/20/2024 09:55 Report Date: 06/20/2024 10:34 At the request of: JAMAICA FRAZIER Procedure: XR ankle LT min 3V EXAM: XR ankle LT min 3V HISTORY: injury c/o pain COMPARISON: Left foot series dated 06/20/2024. TECHNIQUE: AP, mortise and lateral views of the left ankle performed. FINDINGS: The bony alignment is anatomic. The bone mineralization is normal. There is no fracture. The plafond and talar dome are smoothly marginated. The ankle mortise is anatomic. There is an accessory ossicle adjacent to the cuboid. The joint spaces are normal. There is moderate soft tissue swelling adjacent to the lateral malleolus. XR/XR ankle LT min 3V IMPRESSION: There is no acute fracture or malalignment. There is moderate soft tissue swelling adjacent to the lateral malleolus. Electronically authenticated by: MISHA ROTH Date: 06/20/2024 10:34
--- NOTE | 2024-06-20 11:47 | ED.GENADUL1 ---
HPI HPI - General Adult General Chief complaint: Extremity Injury, Lower Stated complaint: LOWER LEFT EXTREMITY INJURY Time Seen by Provider: 06/20/24 11:10 Source: patient Mode of arrival: walk-in Limitations: no limitations History of Present Illness HPI narrative: Patient is a 24-year-old female who is presenting to the ER today with chief complaint of left ankle and foot pain. Patient had a inversion injury last evening where she had a misstep off a sidewalk. Patient has not injured her left ankle or foot previously. Patient did not go to work today secondary to the pain. 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 Patient did not take anything for pain this morning of Tylenol, or Motrin which she does have at home. Ice was applied. Patient has no other acute injury. Patient significant other is at bedside. All systems are negative except as noted/marked. All systems reviewed and otherwise negative. Nurses note and vital signs reviewed and patient is not hypoxic. General: The patient appears well and in no apparent distress. Patient is resting comfortably on cart. Patient is not toxic, lethargic, or listless Skin: Warm, dry, no pallor noted. There is no rash noted. No petechiae, purpura. Head: Normocephalic, atraumatic Eye: Normal conjunctiva, no drainage, EOMI. PERRL Ears, Nose, Mouth, and Throat: oral mucosa is moist. Nares patent. Mouth without vesicles. Cardiovascular: Regular Rate and Rhythm, no murmur, gallop, rub Respiratory: Patient is in no distress, no accessory muscle use, lungs are clear to auscultation, no wheezing, rales or rhonchi Musculoskeletal: Patient has full range of motion of all of the extremities except to the left ankle and foot. Patient has mild to moderate swelling and mild ecchymosis noted distal to the left lateral malleolus. Patient left Achilles is intact. Patient has no pain to the proximal fibular head, no pain to the base of left fifth or fourth metatarsal. Patient does have mild to moderate tenderness across the midfoot, dorsal aspect with no swelling or ecchymosis noted. Mild left medial malleolus tenderness to palpation. Full range of motion left hip with knee with no difficulty. Otherwise no motor, sensory, or focal neurological deficits. Neurological: A&O x4, normal speech Psychiatric: Cooperative Related Data Allergies Allergy/AdvReac Type Severity Reaction Status Date / Time No Known Drug Allergies Allergy Verified 06/20/24 09:42 Opioid HPI Opioid Management Most Recent Opioid Data: Last Pain Scale 7 06/20/24 09:50 PFSH PFSH Social History Little interest or pleasure in doing things: not at all Feeling down, depressed, or hopeless: not at all Exam Constitutional Vital Signs, click to edit/add: Last Vital Signs Temp 98.9 F 06/20/24 09:42 Pulse 101 H 06/20/24 09:42 Resp 16 06/20/24 09:42 BP 131/85 06/20/24 09:42 Pulse Ox 98 06/20/24 09:42 O2 Del Method Room Air 06/20/24 09:42 Course Vital Signs Vital signs: Vital Signs Temperature 98.9 F 06/20/24 09:42 Pulse Rate 101 H 06/20/24 09:42 Respiratory Rate 16 06/20/24 09:42 Blood Pressure 131/85 06/20/24 09:42 Pulse Oximetry 98 06/20/24 09:42 Oxygen Delivery Method Room Air 06/20/24 09:42 Temperature 98.9 F 06/20/24 09:42 Pulse Rate 101 H 06/20/24 09:42 Respiratory Rate 16 06/20/24 09:42 Blood Pressure 131/85 06/20/24 09:42 Pulse Oximetry 98 06/20/24 09:42 Oxygen Delivery Method Room Air 06/20/24 09:42 Medical Decision Making MDM Narrative Medical decision making narrative: Patient left ankle and foot x-ray showed no acute fracture dislocation or acute abnormality. Patient had Steven wrap, Aircast placed to the left ankle and foot. Splint was assisted with . the patient was neurovascularly intact before and after the splint was placed. the affected bones/injured area had proper alignment in a splint. Education on splint care at home was given at bedside. Patient and family have no questions at discharge. Patient had her own crutches with her, they were adjusted to fit appropriate size. Patient will follow-up with Dr. Harrison as needed. Education on left ankle and foot sprain were discussed at bedside and on discharge paperwork. Patient will follow-up with PCP as needed, no questions at discharge. Work note given, patient was offered Tylenol Motrin, she stated that she will take these when she gets home. Ice was applied. RICE therapy discussed along with treatment at home for the next several weeks. Discharge Plan Discharge Stand Alone Forms: Work/School Release Chief Complaint: Extremity Injury, Lower Clinical Impression: Left ankle sprain, Sprain of left foot, Acute pain Patient Disposition: Home, Self-Care Condition: Fair Print Language: Hungarian Instructions: Ankle Sprain (ED), Crutch Instructions (ED), How to Use an Elastic Bandage (ED), Ankle Stirrup Splint (ED), Foot Sprain (ED), P.R.I.C.E. Treatment (ED), Ice Pack Application (ED) Additional Instructions: Use ice 20 minutes on, 20 minutes off. Do not use heat. Remove yourself from crutches the next 3 to 5 days as tolerated with weightbearing as tolerated by you. In the next 5 to 7 days you may remove the Aircast if the pain is improving and then eventually remove the Steven wrap. Keep the Steven wrap and Aircast on at all times besides ice and shower for the next week. Use crutches only when ambulating. Work note provided. Alternate Tylenol and either Motrin, Advil, or ibuprofen every 4 hours to help with pain. Maximum dose of Tylenol is 3000 mg a day. Maximum dose of either Motrin, Advil, or ibuprofen is 2400 mg a day. Referrals: Physician,Non-Staff, [Primary Care Provider] - 1 week Luc Harrison DPM [Physician] - 1 week
== END 2024-06-20 12:01 | disposition home or self-care (01) ==
PROVIDERS: Emergency Provider Emergency Medicine
DX: S93.402A Sprain of unspecified ligament of left ankle, initial encounter (principal); S93.602A Unspecified sprain of left foot, initial encounter; W10.1XXA Fall (on)(from) sidewalk curb, initial encounter
CPT/HCPCS: 73610; 73630; 99283

== ENCOUNTER 2024-07-01 06:13 | Emergency (ER) | payer OTHER, SELFPAY ==
[2024-07-01] VITALS (12 sets, daily range): BP systolic 124–148; BP diastolic 84–116; PULSE 98–99; TEMP 36.8; O2SAT 92–100; BMI 30.9
--- OUTSIDE RECORDS SUMMARY | 2024-07-01 06:25 | XMS_ITS | CCD ---
Author Organization [facility] Inform ion Partnership [facility] Care Team Providers Care Software Support Analyst Name Role Phone REQUEST, DR NONE LISTED Primary Care Unavaila van SUAREZ, DR AMADOR Admitting Unavailable ERICK, DR AMADOR Attending Unavailable ERICK, DR AMADOR Consulting Unavailable Barb Woodard Unavailable Russ Vaughn MD Primary Care Provider Russ Vaughn MD Primary Care Provider [phone] SHARON VASQUEZ Attending Unavailable RODERICK, MUHAMID M [...] Unav ailable RODERICK, MUHAMID M Referring Unavailable RDOERICK, MUHAMID M Primary Care Unavailable MAHSA, EHAD Attending Unavailable KOSTA KEYES Referring Unavailable RODERICK, MUHAMID M Primary Care Unavailable MAHSA, EHAD Attending Unavailable MAHSA, EHAD Referring Unavailable RODERICK, MUHAMID M Primary Care Unavailable SHARON VASQUEZ Referring Unavailable RODERICK, MUHAMID M Primary Care Unavailable RODERICK, MUHAMID M Primary Care Unavailable HIMANSHU SETHI Attending Unavailable HIMANSHU SETHI Attending Unavailable HIMANSHU SETHI Referring Unavailable RUSS VAUGHN Primary Care Unavailable MD Russ Vaughn Primary Care Provider MD Obie Harley Admit Provider [phone] MD Obie Harley Attending Provider Donavon Montalvo Attending Unavailab Obie Bal Admitting Unavailable Russ Vaughn Primary Care Unavailable Russ Vaughn Primary Care Unavailable Donavon Montalvo Attending Unavailab Donavon Rodriguez Admitting Unavailab nancy Medications Current Medications Medication Drug Class(es) Dates Sig (Normalized) Sig (Original) cyclobenzaprine hydrochloride 10 mg oral tablet (1 source) Muscle Relaxant Start: 01-06-2024 take 1 tablet by mouth twice daily as needed for muscle spasms cyclobenzaprine (FLEXERIL) 10 mg tablet Take 1 tablet (10 mg total) by mouth 2 (two) times a day as needed for muscle spasms. 10 tablet 0 01/06/2024 Active ergocalciferol 1.25 mg oral capsule (1 source) Provitamin D2 Compound Start: 04-21-2024 take 1250 ug by mouth once Ergocalciferol (Vitamin D2) Active 1250 MCG PO Mo@0900 5 April 21, 2024 12:00am folic acid 1 mg oral tablet (1 source) Start: 04-21-2024 take 1 mg by mouth once daily Folic Acid Active 1 MG PO Daily April 21, 2024 12:00am hydrOXYzine pamoate 50 mg oral capsule (5 sources) Antihistamine Start: 04-21-2024 take 50 mg by mouth every six hours Hydroxyzine Pamoate Active 50 MG PO Q6H April 21, 2024 12:00am Start: 09-09-2023 take 1 capsule by mo uth three times daily as needed for anxiety, [...] tablet (1 source) Nonsteroidal Anti-inflammatory Drug Start: 01-06-2024 take 1 tablet by mouth every eight hours as needed for pain ibuprofen (MOTRIN) 800 mg tablet Take 1 tablet (800 mg total) by mouth every 8 (eight) hours as needed for pain. 21 tablet 0 01/06/2024 Active lamoTRIgine 25 mg oral tablet (1 source) Mood Stabilizer, Anti-epileptic Agent Start: 04-21-2024 take 25 mg by mouth once daily Lamotrigine Active 25 MG PO Daily April 21, 2024 12:00am lidocaine 0.05 mg/mg medicated patch (1 source) Antiarrhythmic, Amide Local Anesthetic Start: 01-06-2024 apply 1 dose transdermal route once daily, then apply 1 dose transdermal route every twelve hours lidocaine (LIDODERM) 5 % Place 1 patch on the skin daily. Remove & Discard patch within 12 hours or as directed by MD 30 patch 0 01/06/2024 Active methylPREDNISolone (1 source) Corticosteroid Start: 01-06-2024 methylPREDNISolone (MEDROL, PENELOPE,) 4 mg tablet follow package directions 21 tablet 0 01/06/2024 Active metoclopramide 10 mg oral tablet (1 source) Dopamine-2 Receptor Antagonist Start: 07-22-2023 Reglan 10 MG 1 Tablet Orally 2-3 times per day prn nausea and vomiting Jul, Active OLANZapine 5 mg oral tablet (1 source) Atypical Antipsychotic Start: 04-21-2024 take 5 mg by mouth every six hours Olanzapine Active 5 MG PO Q6H 30 April 21, 2024 12:00am omeprazole 20 mg delayed release oral capsule (1 source) Proton Pump Inhibitor take 1 capsule by mouth in the morning Omeprazole 20 MG TAKE 1 CAPSULE BY MOUTH IN THE MORNING Oral for 30 Days Active PARoxetine hydrochloride 40 mg oral tablet (7 sources) Serotonin Reuptake Inhibitor Start: 04-17-2024 take 40 mg by mouth once daily Paroxetine Hcl Active 40 MG PO Daily April 17, 2024 12:00am Start: 10-27-2023 End: 11-24-2023 take 1 tablet by mouth in the [...] morning. 30 tablet 2 09/09/2023 10/08/2023 Discontinued thiamine 100 mg oral tablet (1 source) Start: 04-21-2024 take 100 mg by mouth twice daily Thiamine Hcl (Vitamin B1) Active 100 MG PO Twice daily 60 April 21, 2024 12:00am tiZANidine 4 mg oral tablet (1 source) Central alpha-2 Adrenergic Agonist Start: 01-07-2024 tiZANidine (ZANAFLEX) 4 mg tablet Indications: Seizure (CMS-HCC) , Muscle cramp Use 1 tab each night scheduled. If still having muscle cramps spasm can have 1 tab in day as needed. 60 tablet 0 01/07/2024 Active traZODone hydrochloride 50 mg oral tablet (1 source) Serotonin Reuptake Inhibitor Start: 04-22-2024 take 50 mg by mouth once daily at bedtime Trazodone Active 50 MG PO Daily at bedtime April 22, 2024 12:00am 24 hr venlafaxine 75 mg extended release oral capsule (5 sources) Serotonin and Norepinephrine Reuptake Inhibitor Start: 04-21-2024 take 75 mg by mouth once daily Venlafaxine Active 75 MG PO Daily April 21, 2024 12:00am Start: 04-17-2024 End: 04-22-2024 take 37.5 mg by mouth once daily Venlafaxine Discontinued 37.5 MG PO Daily April 17, 2024 12:00am April 22, 2024 8:12am Start: 11-24-2023 take 1 capsule by mo uth every twenty-four hours in the morning venlafaxine [...] ABDOMINAL PAIN] Onset: 10-01-2022 Episodic Anxiety disorders (13 sources) Generalized anxiety disorder; Translations: [Generalized anxiety disorder] Onset: 02-06-2023 10-08-2023 Chronic Blindness and vision defects (4 sources) Visual impairment; Translations: [Unspecified visual loss] Onset: 02-06-2023 02-06-2023 Chronic Epilepsy; convulsions (1 source) Epilepsy, unspecified, not intractable, without status epilepticus; Translations: [Epilepsy, unspecified, not intractable, without status epilepticus] Onset: 01-29-2024 Chronic Esophageal disorders (6 sources) Gastro-esophageal reflux disease without esophagitis; Translations: [Gastroesophageal reflux disease] Onset: 10-01-2022 02-06-2023 Chronic Mood disorders (7 sources) Depressive disorder; Translations: [Depression] Onset: 02-06-2023 02-06-2023 Chronic Mood disorders (7 sources) Mood disorders; Translations: [Depression, unspecified] Onset: 10-02-2022 Resolved: 11-24-2023 10-02-2022 Nausea and vomiting (5 sources) Nausea with vomiting, unspecified; Translations: [NAUSEA WITH VOMITING UNSPECIFIED] Onset: 09-25-2022 Episodic Other connective tissue disease (1 source) Cramp; Translations: [Cramp and spasm] 01-07-2024 Episodic Screening and history of mental health and substance abuse codes (1 source) Personal history of nicotine dependence; Translations: [PERSONAL HISTORY OF NICOTINE DEPEND] Onset: 10-01-2022 Episodic Spondylosis; intervertebral disc disorders; other back problems (5 sources) Lumbago with sciatica, left side; Translations: [Sciatica, left side] Onset: 01-06-2024 Episodic Substance-related disorders (1 source) Cannabis use, unspecified, uncomplicated; Translations: [CANNABIS USE UNS UNCOMPLICATED] Onset: 10-01-2022 Episodic Suicide and intentional self-inflicted injury (1 source) Suicidal ideations; Translations: [Suicidal ideations] Onset: 04-16-2024 Episodic Unclassified (1 source) Medication Problem Onset: 11-24-2023 Unclassified (1 source) Suicidal Onset: 04-16-2024 Unclassified (1 source) New Patient Onset: 01-29-2024 Unclassified (1 source) Seizure - New Onset Onset: 12-27-2023 Unclassified (1 source) EMS Onset: 12-27-2023 Past or Other Problems Problem Classification Problem Date Documented Da te Episodic/Chronic Allergic reactions (5 sources) Eczema; Translations: [Dermatitis, unspecified] Onset: 02-06-2023 02-06-2023 Episodic Epilepsy; convulsions (5 sources) Seizure; Translations: [Unspecified convulsions] Onset: 12-27-2023 01-07-2024 Episodic Other connective tissue disease (1 source) Cramp and spasm; Translations: [Cramp and spasm] Onset: 01-11-2024 Episodic Results Test Name Value Interpretation Reference Range Facility Cholesterol [Mass/volume] in Serum or PlasmaOrdered By: Obie Harley on 04-18-2024 Cholesterol [Mass/Vol] 198 mg/dL Normal 140-200 [facility] Comment on above: Chol less than 200 m g/dl low riskChol 201-239 mg/dl borderline riskChol 240 mg/dl and greater high risk Result Comment: Chol less than 200 mg/dl low risk Chol 201-239 mg/dl borderline risk Chol 240 mg/dl and greater high risk Performed By: #### L IPID, [id number], TSH3 wRFLX #### [facility] [address] [place] [address] Cholesterol in LDL Calc [Mas s/Vol]Ordered By: Obie Harley on 04-18-2024 Cholesterol in LDL [Mass/Vol] 107 mg/dL High 0-100 [facility] Comment on above: LDL ATP III CLASSIFI CATIONLDL less than 100 mg/dL OptimalLDL 100-129 mg/dL Near or above optimalLDL 130-159 mg/dL Borderline highLDL 160-189 mg/dL HighLDL greater than 189 mg/dL Very high Cholesterol in VLDL Calc [Ma ss/Vol]Ordered By: Obie Harley on 04-18-2024 Cholesterol in VLDL [Mass/Vol] 17 mg/dL [facility] ECG 12 lead ECGon 04-18-2024 ECG 12 lead ECG [facility] [place] [address] [place] [address] Electrocardiograph Report Signed Patient: Yolanda Villanueva MR#: [id number] 79 : 2000 Acct:[id number] Age/Sex: 24 / F ADM Date: 04/17/24 Loc: Room: [address] [place] [address] Type: ADM IN Attending Dr: Obie Harley MD Ordering Provider: Obie Harley MD Date of Service: 04/18/24 ECG/ECG 12 lead ECG: new admit Copies to: Test Reason : Blood Pressure : */* mmHG Vent. Rate : 62 BPM Atrial Rate : 62 BPM P-R Int : 134 ms QRS Dur : 92 ms QT Int : 386 ms P-R-T Axes : 28 90 53 degrees QTcB Int : 391 ms Normal sinus rhythm Rightward axis Borderline ECG No previous ECGs available Confirmed by [facility] Bartlett ([id number]) on 04/18/2024 5:09:38 PM Referred By: Electronically Signed By: EUGENE ARRINGTON MD [facility] Transcribed By: MUS Signed By Saurav Arrington MD 04/18/24 1709 Normal [facility] Lipid Panelon 04-18-2024 LDL Cholesterol,Calculated 107 mg/dL High 0-100 [facility] Comment on above: Result Comment: LDL ATP III CLASSIFICATION LDL less than 100 mg/dL Optimal LDL 100-129 mg/dL Near or above optimal LDL 130-159 mg/dL Borderline high LDL 160-189 mg/dL High LDL greater than 189 mg/dL Very high Performed By: #### L IPID, [id number], TSH3 wRFLX #### [facility] [address] [id number] [facility] Triglyceride w/Reflex 85 mg/dL Normal 0-149 [facility] Comment on above: Result Comment: TRIG ATP III CLASSIFICATION TRIG less than 150 mg/dL Normal TRIG 150-199 mg/dL Borderline high TRIG 200-500 mg/dL High TRIG greater than 500 mg/dL Very high Standard traceable to the Center for Disease Conrtrol and Prevention (CDC) test method. Performed By: #### L IPID, [id number], TSH3 wRFLX #### [address] VLDL CHOLESTEROL 17 mg/dL Normal [facility] Comment on above: Performed By: #### L IPID, [id number], TSH3 wRFLX #### [address] Serum or plasma high density lipoprotein (HDL) cholesterol measurementOrdered By: Obie Harley on 04-18-2024 Cholesterol in HDL [Mass/Vol] 74 mg/dL Normal 23-92 [facility] Comment on above: HDL CHOL ATP-III CLA SSIFICATION Cardiovascular RiskHDL > or equal to 60 mg/dL LOWHDL < 40 mg/dL HIGH Result Comment: HDL CHOL ATP-III CLASSIFICATION Cardiovascular Risk HDL > or equal to 60 mg/dL LOW HDL < 40 mg/dL HIGH Performed By: #### L IPID, [id number], TSH3 wRFLX #### [address] Serum or plasma total choles terol/high density lipoprotein (HDL) cholesterol mass ratOrdered By: Obie Harley on 04-18-2024 Cholesterol.total/Chol esterol in HDL [Mass ratio] 2.7 {ratio} Normal <5.0 [facility] Comment on above: Performed By: #### L IPID, [id number], TSH3 wRFLX #### [address] Thyroid Stim Hormone w/Rflxo n 04-18-2024 Thyroid Stim Hormone w/Rflx 0.78 u[iU]/mL Normal 0.45-5.33 [facility] Comment on above: Performed By: #### L IPID, [id number], TSH3 wRFLX #### [address] Thyrotropin [Units/volume] i n Serum or PlasmaOrdered By: Obie Harley on 04-18-2024 TSH Qn 0.78 m[IU]/L 0.45-5.33 [facility] Triglyceride [Mass/volume] i n Serum or PlasmaOrdered By: Obie Harley on 04-18-2024 Triglyceride [Mass/Vol] 85 mg/dL 0-149 [facility] Comment on above: TRIG ATP III CLASSIF ICATIONTRIG less than 150 mg/dL NormalTRIG 150-199 mg/dL Borderline highTRIG 200-500 mg/dL High TRIG greater than 500 mg/dL Very highStandard traceable to the Center for Disease Conrtrol and Prevention (CDC) test method. Vitamin D 25 Hydroxy Totalon 04-18-2024 Vitamin D 25 Hydroxy Total 21.8 ng/mL Low 30-100 [facility] Comment on above: Result Comment: KEO MIN D STATUS 25(OH)VITAMIN D RANGE (ng/mL) Deficient <20 Insufficient 20 to <30 Sufficient 30 to 100 Reference: Woo Howard, Yvrose GRIDER, et al. Evaluation,treatment, and prevention of vitamin D deficiency; an Endocrine Society clinical practice guideline. JCEM. 2010; 96(7):1911-. PERFORMED BY: [place] [address] PATHOLOGIST CHEESE WEIGHER VIVIANA GOLDSMITH M.D. Performed By: #### L IPID, [id number], TSH3 wRFLX #### [address] Vitamin D+Metabolites [Mass/ volume] in Serum or PlasmaOrdered By: Obie Harley on 04-18-2024 Vitamin D+Metabolites [Mass/Vol] 21.8 ng/mL Low 30-100 [facility] Comment on above: VITAMIN D STATUS 25( [place])VITAMIN D RANGE (ng/mL) Deficient <20 Insufficient 20 to <30Sufficient 30 to 100Reference: Woo Howard, Yvrose GRIDER et al. Evaluation,treatment, and prevention of vitamin D deficiency; an Endocrine Society clinical practice guideline. JCEM. 2010; 96(7):1911-30. HCG ( test) Ql (U)o n 04-17-2024 Beta HCG ( test) Ql (U) Negative Normal NEG [facility] Comment on above: Performed By: #### C BCA, CMP, 5643-2, 96338-0, 72366-0, THYR #### [facility] ([id number]) [address] [place] [address] URN MACROSCOPIC NURon 2023 BILIRUBIN KRISTA Negative Normal NEG [facility] Comment on above: Performed By: #### C BCA, CMP, 5643-2, 84427-0, 49961-0, THYR #### [facility] ([id number]) [address] [place] [address]2718 BLOOD/HGB KRISTA Negative Normal [facility] Comment on above: Performed By: #### C BCA, CMP, 5643-2, 97195-1, 37677-6, THYR #### [facility] ([id number]) [address] [place] [address] 19606 GLUCOSE KRISTA Negative Normal [facility] Comment on above: Performed By: #### C BCA, CMP, 5643-2, 77170-2, 15442-3, THYR #### [facility] ([id number]) [address] [place] [address] 59572 KETONES KRISTA Negative Normal NEG [facility] Comment on above: Performed By: #### C BCA, CMP, 5643-2, 79929-0, 04622-8, THYR #### [facility] ([id number]) [address] [place] [address] 94150 LEUKOCYTE ESTERASE KRISTA Trace Abnormal NEG [facility] Comment on above: Performed By: #### C BCA, CMP, 5643-2, 88064-8, 01509-5, THYR #### [facility] ([id number]) [address] [place] [address] 97020 NITRITE KRISTA Negative Normal NEG [facility] Comment on above: Performed By: #### C BCA, CMP, 5643-2, 53080-3, 75688-1, THYR #### [facility] ([id number]) [address] [place] [address]239 PH KRISTA 6.5 Normal 5.0-8.5 [facility] Comment on above: Performed By: #### C BCA, CMP, 5643-2, 69519-0, 34951-9, THYR #### [facility] ([id number]) [address] [place] [address] 09522 PROTEIN KRISTA Negative Normal NEG [facility] Comment on above: Performed By: #### C BCA, CMP, 5643-2, 87525-2, 56334-3, THYR #### [facility] ([id number]) [address] [place] [address] 17127 SPECIFIC GRAVITY KRISTA 1.010 Normal 1.003-1.035 [facility] Comment on above: Performed By: #### C BCA, CMP, 5643-2, 47285-0, 26876-5, THYR #### [facility] ([id number]) [address] [place] [address] 45113 UROBILINOGEN KRISTA 0.2 eu/dL Normal <1.1 [facility] Comment on above: Performed By: #### C BCA, CMP, 5643-2, 14775-8, 69851-7, THYR #### [facility] ([id number]) [address] [place] [address] 53191 XR CHEST 1 VWon 04-17-2024 XR CHEST 1 VW XR CHEST 1 VW XR CHEST 1 VW REASON FOR EXAM: 24 years old Female with chest pain. TECHNIQUE: Single portable AP view of the chest. COMPARISON: Chest radiograph dated 07/31/2023. FINDINGS: Cardiac silhouette and mediastinum are within normal limits. No pneumothorax or pleural effusion. No focal opacity. IMPRESSION: * No radiographically evident acute cardiopulmonary process. Approved by Resident Pa Bangura DO on 04/17/2024 1:10 AM IOliver MD have personally reviewed the image(s) and agree with and/or edited the report Finalized by Oliver Zayas MD on 04/17/2024 1:15 AM Normal [facility] CBC AND AUTO DIFFon 04-16-20 24 ABSOLUTE BASOPHIL 0.1 X10E9/L Normal 0.0-0.2 [facility] Comment on above: Performed By: #### C BCA, CMP, 5643-2, 54513-9, 85718-5, THYR #### [facility] ([id number]) [address] [place] [address] 72727 ABSOLUTE NEUTROPHIL 7.9 X10E9/L High 1.5-6.6 [facility] Comment on above: Performed By: #### C BCA, CMP, 5643-2, 49067-8, 18875-9, THYR #### [facility] ([id number]) [address] [place] [address] 18187 Basophils/100 WBC (Bld) 0.7 % Normal [facility] Comment on above: Performed By: #### C BCA, CMP, 5643-2, 14604-1, 30372-1, THYR #### [facility] ([id number]) [address] [place] [address] 82023 Eosinophils (Bld) [#/Vol] 0.1 10*3/uL Normal 0.0-0.4 [facility] Comment on above: Performed By: #### C BCA, CMP, 5643-2, 90245-2, 96369-4, THYR #### [facility] ([id number]) [address] [place] [address] 07194 Eosinophils/100 WBC (Bld) 1.3 % Normal [facility] Comment on above: Performed By: #### C BCA, CMP, 5643-2, 12232-9, 52381-3, THYR #### [facility] ([id number]) [address] [place] [address] 71117 Erythrocyte distribution width (RBC) [Ratio] 13.2 % Normal 11.5-15.0 [facility] Comment on above: Performed By: #### C BCA, CMP, 5643-2, 20725-1, 66562-0, THYR #### [facility] ([id number]) [address] [place] [address] 20122 Hematocrit (Bld) [Volume fraction] 41.3 % Normal 35-47 [facility] Comment on above: Performed By: #### C QUIQUE, CMP, 5643-2, 49760-2, 27619-0, THYR #### [facility] ([id number]) [address] [place] [address] 04155 Hemoglobin (Bld) [Mass/Vol] 14.0 g/dL Normal 11.7-15.5 [facility] Comment on above: Performed By: #### C QUIQUE, CMP, 5643-2, 43735-1, 68711-7, THYR #### [facility] ([id number]) [address] [place] [address] 81162 Lymphocytes (Bld) [#/Vol] 2.2 10*3/uL Normal 1.0-3.5 [facility] Comment on above: Performed By: #### C BCA, CMP, 5643-2, 56427-6, 82214-8, THYR #### [facility] ([id number]) [address] [place] [address] 58543 Lymphocytes/100 WBC (Bld) 20.3 % Normal [facility] Comment on above: Performed By: #### C BCA, CMP, 5643-2, 57940-1, 12469-5, THYR #### [facility] ([id number]) [address] [place] [address] 91873 MCH (RBC) [Entitic mass] 29.9 pg Normal 27-34 [facility] Comment on above: Performed By: #### C QUIQUE, CMP, 5643-2, 06571-9, 24720-9, THYR #### [facility] ([id number]) [address] [place] [address] 43644 MCHC (RBC) [Mass/Vol] 33.9 g/dL Normal 32-36 [facility] Comment on above: Performed By: #### C QUIQUE, CMP, 5643-2, 24048-4, 16446-8, THYR #### [facility] ([id number]) [address] [place] [address] 77541 MCV (RBC) [Entitic vol] 88 fL Normal 80-100 [facility] Comment on above: Performed By: #### C QUIQUE, CMP, 5643-2, 05578-7, 47697-4, THYR #### [facility] ([id number]) [address] [place] [address] 91977 Monocytes (Bld) [#/Vol] 0.6 10*3/uL Normal 0-0.9 [facility] Comment on above: Performed By: #### C BCA, CMP, 5643-2, 41456-6, 25580-9, THYR #### [facility] ([id number]) [address] [place] [address] 91734 Monocytes/100 WBC (Bld) 5.4 % Normal [facility] Comment on above: Performed By: #### C BCA, CMP, 5643-2, 12875-8, 44972-7, THYR #### [facility] ([id number]) [address] [place] [address] 54607 Neutrophils/100 WBC (Bld) 72.3 % Normal [facility] Comment on above: Performed By: #### C BCA, CMP, 5643-2, 57833-1, 71158-7, THYR #### [facility] ([id number]) [address] [place] [address] 54515 Platelet mean volume (Bld) [Entitic vol] 7.3 fL Normal 7-12 [facility] Comment on above: Performed By: #### C BCA, CMP, 5643-2, 16991-5, 60169-6, THYR #### [facility] ([id number]) [address] [place] [address] 03037 Platelets (Bld) [#/Vol] 346 10*3/uL Normal 150-450 [facility] Comment on above: Performed By: #### C BCA, CMP, 5643-2, 36255-0, 44154-6, THYR #### [facility] ([id number]) [address] [place] [address] 71602 RBC COUNT 4.68 X10E12/L Normal 3.80-5.20 [facility] Comment on above: Performed By: #### C BCA, CMP, 5643-2, 99272-9, 59806-9, THYR #### [facility] ([id number]) [address] [place] [address] 91925 WBC (Bld) [#/Vol] 10.9 10*3/uL Normal 4.0-11.0 [facility] Comment on above: Performed By: #### C BCA, CMP, 5643-2, 75404-9, 62540-2, THYR #### [facility] ([id number]) [address] [place] [address] 99589 COMPREHENSIVE METABOLIC PANE Elvin 04-16-2024 Albumin [Mass/Vol] 4.7 g/dL Normal 3.2-5.3 [facility] Comment on above: Performed By: #### C BCA, CMP, 5643-2, 11995-7, 09853-3, THYR #### [facility] ([id number]) [address] [place] [address] 66507 ALP [Catalytic activity/Vol] 72 U/L Normal 39-130 [facility] Comment on above: Performed By: #### C BCA, CMP, 5643-2, 98264-2, 52689-7, THYR #### [facility] ([id number]) [address] [place] [address] 04421 ALT [Catalytic activity/Vol] 18 U/L Normal 0-31 [facility] Comment on above: Performed By: #### C BCA, CMP, 5643-2, 33913-0, 95940-9, THYR #### [facility] ([id number]) [address] [place] [address] 91178 Anion gap [Moles/Vol] 14 mmol/L Normal 5-15 [facility] Comment on above: Performed By: #### C BCA, CMP, 5643-2, 42235-4, 61221-1, THYR #### [facility] ([id number]) [address] [place] [address] [id number] AST [Catalytic activity/Vol] 21 U/L Normal 0-41 [facility] Comment on above: Performed By: #### C BCA, CMP, 5643-2, 68892-8, 53892-3, THYR #### [facility] ([id number]) [address] [place] [address] [id number] Bilirubin [Mass/Vol] 0.5 mg/dL Normal 0.3-1.2 [facility] Comment on above: Performed By: #### C BCA, CMP, 5643-2, 88560-2, 63895-4, THYR #### [facility] ([id number]) [address] [place] [address], [place] [address] Calcium [Mass/Vol] 8.8 mg/dL Normal 8.5-10.5 [facility] Comment on above: Performed By: #### C QUIQUE, SYED, 5643-2, 25346-9, 60004-9, THYR #### [facility] ([id number]) [address] [place] [address] 47311 Chloride [Moles/Vol] 99 mmol/L Normal 98-109 [facility] Comment on above: Performed By: #### C QUIQUE, SYED, 5643-2, 68700-9, 05558-4, THYR #### [facility] ([id number]) [address] [place] [address] 20052 CO2 [Moles/Vol] 25 mmol/L Normal 22-32 [facility] Comment on above: Performed By: #### C QUIQUE, SYED, 5643-2, , 03982-1, THYR #### [facility] ([id number]) [address] [place] [address] 62674 Creatinine [Mass/Vol] 0.78 mg/dL Normal 0.40-1.00 [facility] Comment on above: Result Comment: METH OD TRACEABLE TO IDMS STANDARD Performed By: #### C QUIQUE, SYED, 5643-2, 82091-9, 16671-1, THYR #### [facility] ([id number]) [address] [place] [address] 33158 eGFR (CKD-EPI) NON-RACE DEPENDENT >90 Normal >59 [facility] Comment on above: Result Comment: Reported eGFR is based on the CKD-EPI 2020 equation that does not use a race coefficient. Performed By: #### C QUIQUE, SYED, 5643-2, 23181-5, 51357-7, THYR #### [facility] ([id number]) [address] [place] [address] 74642 Glucose [Mass/Vol] 117 mg/dL High 65-99 [facility] Comment on above: Performed By: #### C BCA, CMP, 5643-2, 31673-8, 24210-0, THYR #### [facility] ([id number]) [address] [place] [address] 53462 Potassium [Moles/Vol] 3.8 mmol/L Normal 3.5-5.0 [facility] Comment on above: Performed By: #### C BCA, CMP, 5643-2, 98277-8, 34457-9, THYR #### [facility] ([id number]) [address] [place] [address] 73996 Protein [Mass/Vol] 8.8 g/dL High 6.0-8.0 [facility] Comment on above: Performed By: #### C BCA, CMP, 5643-2, 28563-6, 18522-3, THYR #### [facility] ([id number]) [address] [place] [address] 55601 Sodium [Moles/Vol] 138 mmol/L Normal 134-146 [facility] Comment on above: Performed By: #### C BCA, CMP, 5643-2, 23517-5, 21336-5, THYR #### [facility] ([id number]) [address] [place] [address] 44149 Urea nitrogen [Mass/Vol] 8 mg/dL Normal 5-23 [facility] Comment on above: Performed By: #### C BCA, CMP, 5643-2, 29022-3, 86196-6, THYR #### [facility] ([id number]) [address] [place] [address] 14586 DRUG SCREEN, URINEon 024 AMPHETAMINE/METHAMP Negative Normal NEG [facility] Comment on above: Result Comment: AMPH /METH screening cut off = 1000 ng/mL Performed By: #### C BCA, CMP, 5643-2, 95207-6, 94431-2, THYR #### [facility] ([id number]) [address] [place] [address] 23611 BARBITURATES Negative Normal NEG [facility] Comment on above: Result Comment: Evonne iturates screening cut off value = 200 ng/mL Performed By: #### C BCA, CMP, 5643-2, 90259-8, 30302-5, THYR #### [facility] ([id number]) [address] [place] [address] 25349 BENZODIAZEPINES Positive Abnormal NEG [facility] Comment on above: Result Comment: Conf irmation available upon request. Benzodiazepines screening cut off value = 200 ng/mL Performed By: #### C BCA, CMP, 5643-2, 86428-6, 99613-9, THYR #### [facility] ([id number]) [address] [place] [address] 96819 CANNABINOIDS Positive Abnormal NEG [facility] Comment on above: Result Comment: Conf irmation available upon request. Cannabinoids/THC screening cut off value = 50 ng/mL Performed By: #### C BCA, CMP, 5643-2, 75904-3, 97154-5, THYR #### [facility] ([id number]) [address] [place] [address] 99741 COCAINE METABOLITE Negative Normal NEG [facility] Comment on above: Result Comment: Coca ine screening cut off value = 300 ng/mL Performed By: #### C BCA, CMP, 5643-2, 87469-8, 60148-1, THYR #### [facility] ([id number]) [address] [place] [address] 71247 ECSTASY Negative Normal NEG [facility] Comment on above: Result Comment: Ecst asy screening cut off value = 500 ng/mL This report is intended for use in clinical monitoring or management of patients. Performed By: #### C BCA, CMP, 5643-2, 19583-0, 93958-3, THYR #### [facility] ([id number]) [address] [place] [address] 15164 METHADONE Negative Normal NEG [facility] Comment on above: Result Comment: Meth adone screening cut off value = 300 ng/mL. Performed By: #### C SYED LEI, 5643-2, 89945-5, 27009-4, THYR #### [facility] ([id number]) [address] [place] [address] 34761 OPIATES Negative Normal NEG [facility] Comment on above: Result Comment: Opia kami screening cut off value = 300 ng/mL NOTE: This test is used for the detection of codeine, hydrocodone (>1000 ng/mL), morphine and hydromorphone (>900 ng/mL) in urine. Performed By: #### C SYED LEI, 5643-2, , 84550-8, THYR #### [facility] ([id number]) [address] [place] [address] 21128 OXYCODONE Negative Normal NEG [facility] Comment on above: Result Comment: Oxyc odone screening cut off value = 300 ng/mL NOTE: This test is used for the detection of oxycodone and oxymorphone in urine. Performed By: #### C SYED LEI, 5643-2, , 40489-5, THYR #### [facility] ([id number]) [address] [place] [address] 34857 PHENCYCLIDINE Negative Normal NEG [facility] Comment on above: Result Comment: Phen cyclidine screening cut off value = 25 ng/mL Performed By: #### C SYED LEI, 5643-2, , 82691-0, THYR #### [facility] ([id number]) [address] [place] [address] 73669 Ethanol [Mass/Vol]on 07-13-2 024 ETHANOL 0.22 g/dL High 0.00-0.08 [facility] Comment on above: Result Comment: This report is intended for use in clinical monitoring or management of patients. Performed By: #### C QUIQUE, SYED, 5643-2, 22246-6, 13839-5, THYR #### [facility] ([id number]) [address] [place] [address] 35899 MAGNESIUMon 04-16-2024 Magnesium [Mass/Vol] 2.0 mg/dL Normal 1.8-2.6 [facility] Comment on above: Performed By: #### C QUIQUE, SYED, 5643-2, 99786-8, 98872-4, THYR #### [facility] ([id number]) [address] [place] [address] 77877 MR BRAIN WO CONTon MR BRAIN WO CONT MR BRAIN WO CONT Examination: Noncontrast brain MRI Date of Exam:03/03/2024 Clinical History:New onset seizure Comparison:None Procedure: Multiplanar, multisequence imaging performed through the brain, without IV contrast. Findings: There are no intracranial masses, mass-effect, extra-axial fluid collection, or hydrocephalus. Sensitivity for acute hemorrhage limited on MRI, but grossly no acute hemorrhage identified. Midline sagittal structures are negative including pituitary fossa, infundibulum, optic chiasm, corpus callosum, brainstem, fourth ventricle, cerebellum, and cranio-cervical junction. There are appropriate flow voids in large cerebral vessels on T2 weighted imaging. Diffusion weighted images show no evidence for acute infarct. There is no abnormal white matter process. The temporal lobes appear symmetrical in appearance. I see no findings of asymmetrical atrophy. IMPRESSION: 1. Brain MR shows no acute findings. Finalized by Jin Serrano MD on 03/03/2024 2:21 PM Normal [facility] MR LUMBAR SPINE WO CONTon MR LUMBAR SPINE WO CONT MR LUMBAR SPINE WO CONT Study: Lumbar spine MRI without contrast History: Acute low back pain. Comparison: None. Technique: Routine multiplanar multisequence MR imaging of the lumbar spine was performed without contrast. Findings: The alignment and marrow signal are normal. There is no fracture or subluxation. Vertebral body height is well-maintained. There is disc space narrowing and desiccation from L3 to S1. The conus medullaris terminates at a normal position at L1. The levels of L1-2 and L2-3 are unremarkable. The level of L3-4 demonstrates broad-based disc bulge with central herniation. This results in mild central canal stenosis. There is no neural foraminal narrowing. The level of L4-5 demonstrates significant disc herniation in the midline and to the left of midline. This results in moderate central canal stenosis and posterior displacement and impingement of the left-sided nerve roots at this level. There is extrusion of disc material posterior to the L5 vertebral body. There is left lateral recess stenosis. The level of L5-S1 demonstrates broad-based disc bulge with central herniation without significant stenosis. Impression: 1. Significant multilevel disc herniation as described. Findings are most pronounced at L4-5. Finalized by Jin Serrano MD on 03/03/2024 2:25 PM Normal [facility] CBC AND AUTO DIFFon 01-11-20 24 ABSOLUTE BASOPHIL 0.1 X10E9/L Normal 0.0-0.2 [facility] Comment on above: Performed By: #### N UM #### [facility] ([id number]) [address] [place] [address] 63151 ABSOLUTE NEUTROPHIL 7.3 X10E9/L High 1.5-6.6 [facility] Comment on above: Performed By: #### N UM #### [facility] ([id number]) [address] [place] [address] 49592 Basophils/100 WBC (Bld) 0.8 % Normal [facility] Comment on above: Performed By: #### N UM #### [facility] ([id number]) [address] [place] [address] 40704 Eosinophils (Bld) [#/Vol] 0.7 10*3/uL High 0.0-0.4 [facility] Comment on above: Performed By: #### N UM #### [facility] ([id number]) [address] [place] [address] 80057 Eosinophils/100 WBC (Bld) 7.2 % Normal [facility] Comment on above: Performed By: #### N UM #### [facility] ([id number]) [address] [place] [address] 69974 Erythrocyte distribution width (RBC) [Ratio] 13.7 % Normal 11.5-15.0 [facility] Comment on above: Performed By: #### N UM #### [facility] ([id number]) [address] [place] [address] 38626 Hematocrit (Bld) [Volume fraction] 42.5 % Normal 35-47 [facility] Comment on above: Performed By: #### N UM #### [facility] ([id number]) [address] [place] [address] 32472 Hemoglobin (Bld) [Mass/Vol] 14.5 g/dL Normal 11.7-15.5 [facility] Comment on above: Performed By: #### N UM #### [facility] ([id number]) [address] [place] [address] 10250 Lymphocytes (Bld) [#/Vol] 1.4 10*3/uL Normal 1.0-3.5 [facility] Comment on above: Performed By: #### N UM #### [facility] ([id number]) [address] [place] [address] 62261 Lymphocytes/100 WBC (Bld) 14.2 % Normal [facility] Comment on above: Performed By: #### N UM #### [facility] ([id number]) [address] [place] [address] 66843 MCH (RBC) [Entitic mass] 29.5 pg Normal 27-34 [facility] Comment on above: Performed By: #### N UM #### [facility] ([id number]) [address] [place] [address] 85347 MCHC (RBC) [Mass/Vol] 34.1 g/dL Normal 32-36 [facility] Comment on above: Performed By: #### N UM #### [facility] ([id number]) [address] [place] [address] 30986 MCV (RBC) [Entitic vol] 86 fL Normal 80-100 [facility] Comment on above: Performed By: #### N UM #### [facility] ([id number]) [address] [place] [address] 52607 Monocytes (Bld) [#/Vol] 0.5 10*3/uL Normal 0-0.9 [facility] Comment on above: Performed By: #### N UM #### [facility] ([id number]) [address] [place] [address] 82575 Monocytes/100 WBC (Bld) 5.5 % Normal [facility] Comment on above: Performed By: #### N UM #### [facility] ([id number]) [address] [place] [address] 08565 Neutrophils/100 WBC (Bld) 72.3 % Normal [facility] Comment on above: Performed By: #### N UM #### [facility] ([id number]) [address] [place] [address] 46886 Platelet mean volume (Bld) [Entitic vol] 8.0 fL Normal 7-12 [facility] Comment on above: Performed By: #### N UM #### [facility] ([id number]) [address] [place] [address] 84397 Platelets (Bld) [#/Vol] 362 10*3/uL Normal 150-450 [facility] Comment on above: Performed By: #### N UM #### [facility] ([id number]) [address] [place] [address] 17893 RBC COUNT 4.93 X10E12/L Normal 3.80-5.20 [facility] Comment on above: Performed By: #### N UM #### [facility] ([id number]) [address] [place] [address] 43267 WBC (Bld) [#/Vol] 10.0 10*3/uL Normal 4.0-11.0 [facility] Comment on above: Performed By: #### N UM #### [facility] ([id number]) [address] [place] [address] 13471 CK [Catalytic activity/Vol]o n 01-11-2024 CPK 53 U/L Normal 24-170 [facility] Comment on above: Performed By: #### C BCA, CMP, 5643-2, 55268-7, 77977-7, THYR #### [facility] ([id number]) [address] [place] [address] 17086 COMPREHENSIVE METABOLIC PANE Elvin 01-11-2024 Albumin [Mass/Vol] 4.9 g/dL Normal 3.2-5.3 [facility] Comment on above: Performed By: #### N UM #### [facility] ([id number]) [address] [place] [address] 79115 ALP [Catalytic activity/Vol] 83 U/L Normal 39-130 [facility] Comment on above: Performed By: #### N UM #### [facility] ([id number]) [address] [place] [address] 38655 ALT [Catalytic activity/Vol] 104 U/L High 0-31 [facility] Comment on above: Performed By: #### N UM #### [facility] ([id number]) [address] [place] [address] 49270 Anion gap [Moles/Vol] 10 mmol/L Normal 5-15 [facility] Comment on above: Performed By: #### N UM #### [facility] ([id number]) [address] [place] [address] 69991 AST [Catalytic activity/Vol] 48 U/L High 0-41 [facility] Comment on above: Performed By: #### N UM #### [facility] ([id number]) [address] [place] [address] 73925 Bilirubin [Mass/Vol] 0.5 mg/dL Normal 0.3-1.2 [facility] Comment on above: Performed By: #### N UM #### [facility] ([id number]) [address] [place] [address] 22262 Calcium [Mass/Vol] 9.8 mg/dL Normal 8.5-10.5 [facility] Comment on above: Performed By: #### N UM #### [facility] ([id number]) [address] [place] [address] 06542 Chloride [Moles/Vol] 101 mmol/L Normal 98-109 [facility] Comment on above: Performed By: #### N UM #### [facility] ([id number]) [address] [place] [address] 01007 CO2 [Moles/Vol] 25 mmol/L Normal 22-32 [facility] Comment on above: Performed By: #### N UM #### [facility] ([id number]) [address] [place] [address] 77682 Creatinine [Mass/Vol] 0.60 mg/dL Normal 0.40-1.00 [facility] Comment on above: Result Comment: METH OD TRACEABLE TO IDMS STANDARD Performed By: #### N UM #### [facility] ([id number]) [address] [place] [address] 54781 eGFR (CKD-EPI) NON-RACE DEPENDENT >90 Normal >59 [facility] Comment on above: Result Comment: Reported eGFR is based on the CKD-EPI 2020 equation that does not use a race coefficient. Performed By: #### N UM #### [facility] ([id number]) [address] [place] [address] 93472 Glucose [Mass/Vol] 82 mg/dL Normal 65-99 [facility] Comment on above: Performed By: #### N UM #### [facility] ([id number]) [address] [place] [address] 12509 Potassium [Moles/Vol] 4.2 mmol/L Normal 3.5-5.0 [facility] Comment on above: Performed By: #### N UM #### [facility] ([id number]) [address] [place] [address] 18338 Protein [Mass/Vol] 8.5 g/dL High 6.0-8.0 [facility] Comment on above: Performed By: #### N UM #### [facility] ([id number]) [address] [place] [address] 53113 Sodium [Moles/Vol] 136 mmol/L Normal 134-146 [facility] Comment on above: Performed By: #### N UM #### [facility] ([id number]) [address] [place] [address] 56808 Urea nitrogen [Mass/Vol] 13 mg/dL Normal 5-23 [facility] Comment on above: Performed By: #### N UM #### [facility] ([id number]) [address] [place] [address] 54518 CRP [Mass/Vol]on 01-11-2024 C REACTIVE PROTEIN 1.2 mg/dL High 0.000-0.744 [facility] Comment on above: Performed By: #### N UM #### [facility] ([id number]) [address] [place] [address] 58185 LDH [Catalytic activity/Vol] on 01-11-2024 LDH 245 U/L High 100-235 [facility] Comment on above: Performed By: #### N UM #### [facility] ([id number]) [address] [place] [address] 47285 MAGNESIUMon 01-11-2024 Magnesium [Mass/Vol] 1.9 mg/dL Normal 1.8-2.6 [facility] Comment on above: Performed By: #### N UM #### [facility] ([id number]) [address] [place] [address] 89018 PHOSPHORUSon 01-11-2024 Phosphate [Mass/Vol] 3.7 mg/dL Normal 2.4-4.9 [facility] Comment on above: Performed By: #### C BCA, CMP, 5643-2, 57411-7, 02697-1, THYR #### [facility] ([id number]) [address] [place] [address] 72213 Prolactin [Mass/Vol]on 01-10 PROLACTIN 6.7 ng/mL Normal 3.3-26.7 [facility] Comment on above: Performed By: #### C BCA, CMP, 5643-2, 33873-0, 18439-9, THYR #### [facility] ([id number]) [address] [place] [address] 75820 TSH WITH REFLEXon 01-11-2024 TSH 0.74 uIU/mL Normal 0.49-4.67 [facility] Comment on above: Performed By: #### C BCA, CMP, 5643-2, 77776-3, 72561-4, THYR #### [facility] ([id number]) [address] [place] [address] 00716 CBC AND AUTO DIFFon 01-06-20 24 ABSOLUTE BASOPHIL 0.1 X10E9/L Normal 0.0-0.2 [facility] Comment on above: Performed By: #### N UM #### [facility] ([id number]) [address] [place] [address] 58490 ABSOLUTE NEUTROPHIL 9.8 X10E9/L High 1.5-6.6 [facility] Comment on above: Performed By: #### N UM #### [facility] ([id number]) [address] [place] [address] 02525 Basophils/100 WBC (Bld) 0.6 % Normal [facility] Comment on above: Performed By: #### N UM #### [facility] ([id number]) [address] [place] [address] 34392 Eosinophils (Bld) [#/Vol] 0.4 10*3/uL Normal 0.0-0.4 [facility] Comment on above: Performed By: #### N UM #### [facility] ([id number]) [address] [place] [address] 06243 Eosinophils/100 WBC (Bld) 3.4 % Normal [facility] Comment on above: Performed By: #### N UM #### [facility] ([id number]) [address] [place] [address] 25996 Erythrocyte distribution width (RBC) [Ratio] 13.8 % Normal 11.5-15.0 [facility] Comment on above: Performed By: #### N UM #### [facility] ([id number]) [address] [place] [address] 51679 Hematocrit (Bld) [Volume fraction] 40.1 % Normal 35-47 [facility] Comment on above: Performed By: #### N UM #### [facility] ([id number]) [address] [place] [address] 60698 Hemoglobin (Bld) [Mass/Vol] 13.5 g/dL Normal 11.7-15.5 [facility] Comment on above: Performed By: #### N UM #### [facility] ([id number]) [address] [place] [address] 79050 Lymphocytes (Bld) [#/Vol] 1.3 10*3/uL Normal 1.0-3.5 [facility] Comment on above: Performed By: #### N UM #### [facility] ([id number]) [address] [place] [address] 36600 Lymphocytes/100 WBC (Bld) 10.8 % Normal [facility] Comment on above: Performed By: #### N UM #### [facility] ([id number]) [address] [place] [address] 92369 MCH (RBC) [Entitic mass] 28.6 pg Normal 27-34 [facility] Comment on above: Performed By: #### N UM #### [facility] ([id number]) [address] [place] [address] 85552 MCHC (RBC) [Mass/Vol] 33.6 g/dL Normal 32-36 [facility] Comment on above: Performed By: #### N UM #### [facility] ([id number]) [address] [place] [address] 71432 MCV (RBC) [Entitic vol] 85 fL Normal 80-100 [facility] Comment on above: Performed By: #### N UM #### [facility] ([id number]) [address] [place] [address] 81044 Monocytes (Bld) [#/Vol] 0.9 10*3/uL Normal 0-0.9 [facility] Comment on above: Performed By: #### N UM #### [facility] ([id number]) [address] [place] [address] [id number] Monocytes/100 WBC (Bld) 6.9 % Normal [facility] Comment on above: Performed By: #### N UM #### [facility] ([id number]) [address] [place] [address] [id number] Neutrophils/100 WBC (Bld) 78.3 % Normal [facility] Comment on above: Performed By: #### N UM #### [facility] ([id number]) [address] [place] [address] [id number] Platelet mean volume (Bld) [Entitic vol] 7.5 fL Normal 7-12 [facility] Comment on above: Performed By: #### N UM #### [facility] ([id number]) [address] [place] [address] [phone] Platelets (Bld) [#/Vol] 354 10*3/uL Normal 150-450 [facility] Comment on above: Performed By: #### N UM #### [facility] ([id number]) [address] [place] [address] [id number] RBC COUNT 4.71 X10E12/L Normal 3.80-5.20 [facility] Comment on above: Performed By: #### N UM #### [facility] ([id number]) [address] [place] [address] [phone] WBC (Bld) [#/Vol] 12.5 10*3/uL High 4.0-11.0 [facility] Comment on above: Performed By: #### N UM #### [facility] ([id number]) [address] [place] [address] [phone] COMPREHENSIVE METABOLIC PANE Elvin 01-06-2024 Albumin [Mass/Vol] 4.4 g/dL Normal 3.2-5.3 [facility] Comment on above: Performed By: #### N UM #### [facility] [facility] ([id number]) [address] [place] [address] 64295 ALP [Catalytic activity/Vol] 60 U/L Normal 39-130 [facility] Comment on above: Performed By: #### N UM #### [facility] ([id number]) [address] [place] [address] 94363 ALT [Catalytic activity/Vol] 38 U/L High 0-31 [facility] Comment on above: Performed By: #### N UM #### [facility] ([id number]) [address] [place] [address] 24019 Anion gap [Moles/Vol] 7 mmol/L Normal 5-15 [facility] Comment on above: Performed By: #### N UM #### [facility] ([id number]) [address] [place] [address] 00568 AST [Catalytic activity/Vol] 27 U/L Normal 0-41 [facility] Comment on above: Performed By: #### N UM #### [facility] ([id number]) [address] [place] [address] 19366 Bilirubin [Mass/Vol] 0.4 mg/dL Normal 0.3-1.2 [facility] Comment on above: Performed By: #### N UM #### [facility] ([id number]) [address] [place] [address] 11009 Calcium [Mass/Vol] 9.0 mg/dL Normal 8.5-10.5 [facility] Comment on above: Performed By: #### N UM #### [facility] ([id number]) [address] [place] [address] 56266 Chloride [Moles/Vol] 103 mmol/L Normal 98-109 [facility] Comment on above: Performed By: #### N UM #### [facility] ([id number]) [address] [place] [address] 35248 CO2 [Moles/Vol] 23 mmol/L Normal 22-32 [facility] Comment on above: Performed By: #### N UM #### [facility] ([id number]) [address] [place] [address] 93298 Creatinine [Mass/Vol] 0.75 mg/dL Normal 0.40-1.00 [facility] Comment on above: Result Comment: METH OD TRACEABLE TO IDMS STANDARD Performed By: #### N UM #### [facility] ([id number]) [address] [place] [address] 35009 eGFR (CKD-EPI) NON-RACE DEPENDENT >90 Normal >59 [facility] Comment on above: Result Comment: Reported eGFR is based on the CKD-EPI 2020 equation that does not use a race coefficient. Performed By: #### N UM #### [facility] ([id number]) [address] [place] [address] 37522 Glucose [Mass/Vol] 91 mg/dL Normal 65-99 [facility] Comment on above: Performed By: #### N UM #### [facility] ([id number]) [address] [place] [address] 97786 Potassium [Moles/Vol] 3.9 mmol/L Normal 3.5-5.0 [facility] Comment on above: Performed By: #### N UM #### [facility] ([id number]) [address] [place] [address] 98775 Protein [Mass/Vol] 8.3 g/dL High 6.0-8.0 [facility] Comment on above: Performed By: #### N UM #### [facility] ([id number]) [address] [place] [address] 69269 Sodium [Moles/Vol] 133 mmol/L Low 134-146 [facility] Comment on above: Performed By: #### N UM #### [facility] ([id number]) [address] [facility] [place] [place] [address] Urea nitrogen [Mass/Vol] 16 mg/dL Normal 5-23 [facility] Comment on above: Performed By: #### N #### [facility] ([id number]) [address] [facility] [place], [place] [address] EDPROVon 01-06-2024 EDPROV HPI Chief Complaint Patient [...] patient and agreeable with plan and discharge. ILilian (more content not included)... Normal [facility] Glucose Glucometer (BldC) [M ass/Vol]on 01-06-2024 Glucose [Mass/Vol] 85 mg/dL Normal 65-99 [facility] Lactate (P nancy) [Moles/Vol]o n 01-06-2024 LACTATE W/REFLEX 2.1 mmol/L High 0.4-2.0 [facility] Comment on above: Performed By: #### N UM #### [facility] ([id number]) [address] [place] [address] 35925 TROPONIN Ion 01-06-2024 Troponin I.cardiac [Mass/Vol] 0.01 ng/mL Normal 0.00-0.04 [facility] Comment on above: Performed By: #### N UM #### [facility] ([id number]) [address] [place] [address] 74166 CBC AND AUTO DIFFon 12-27-19 ABSOLUTE BASOPHIL 0.1 X10E9/L Normal 0.0-0.2 [facility] Comment on above: Performed By: #### C BCA, CMP, 5643-2, 76166-3, 02778-5, THYR #### [facility] ([id number]) [address] [place] [address] 61961 ABSOLUTE NEUTROPHIL 7.8 X10E9/L High 1.5-6.6 [facility] Comment on above: Performed By: #### C BCA, CMP, 5643-2, 13110-4, 90162-0, THYR #### [facility] ([id number]) [address] [place] [address] 98207 Basophils/100 WBC (Bld) 1.3 % Normal [facility] Comment on above: Performed By: #### C BCA, CMP, 5643-2, 56199-5, 60362-6, THYR #### [facility] ([id number]) [address] [place] [address] 45298 Eosinophils (Bld) [#/Vol] 0.8 10*3/uL High 0.0-0.4 [facility] Comment on above: Performed By: #### C BCA, CMP, 5643-2, 09370-3, 27644-6, THYR #### [facility] ([id number]) [address] [place] [address] 26627 Eosinophils/100 WBC (Bld) 7.8 % Normal [facility] Comment on above: Performed By: #### C BCA, CMP, 5643-2, 60955-0, 24890-5, THYR #### [facility] ([id number]) [address] [place] [address] 91603 Erythrocyte distribution width (RBC) [Ratio] 13.3 % Normal 11.5-15.0 [facility] Comment on above: Performed By: #### C BCA, CMP, 5643-2, 32804-4, 14597-6, THYR #### [facility] ([id number]) [address] [place] [address] 65477 Hematocrit (Bld) [Volume fraction] 38.5 % Normal 35-47 [facility] Comment on above: Performed By: #### C BCA, CMP, 5643-2, 99757-4, 47138-9, THYR #### [facility] ([id number]) [address] [place] [address] 71423 Hemoglobin (Bld) [Mass/Vol] 13.2 g/dL Normal 11.7-15.5 [facility] Comment on above: Performed By: #### C QUIQUE, CMP, 5643-2, 53085-9, 90959-9, THYR #### [facility] ([id number]) [address] [place] [address] 54232 Lymphocytes (Bld) [#/Vol] 1.3 10*3/uL Normal 1.0-3.5 [facility] Comment on above: Performed By: #### C QUIQUE, SYED, 5643-2, 96118-4, 50663-8, THYR #### [facility] ([id number]) [address] [place] [address] 48904 Lymphocytes/100 WBC (Bld) 12.0 % Normal [facility] Comment on above: Performed By: #### C QUIQUE, CMP, 5643-2, 12367-5, 47901-9, THYR #### [facility] ([id number]) [address] [place] [address] 96294 MCH (RBC) [Entitic mass] 29.7 pg Normal 27-34 [facility] Comment on above: Performed By: #### C QUIQUE, CMP, 5643-2, 00643-7, 24981-7, THYR #### [facility] ([id number]) [address] [place] [address] 45353 MCHC (RBC) [Mass/Vol] 34.4 g/dL Normal 32-36 [facility] Comment on above: Performed By: #### C BCA, CMP, 5643-2, 70153-9, 82104-4, THYR #### [facility] ([id number]) [address] [place] [address] 86815 MCV (RBC) [Entitic vol] 87 fL Normal 80-100 [facility] Comment on above: Performed By: #### C BCA, CMP, 5643-2, 62675-5, 43082-8, THYR #### [facility] ([id number]) [address] [place] [address] 89928 Monocytes (Bld) [#/Vol] 0.6 10*3/uL Normal 0-0.9 [facility] Comment on above: Performed By: #### C BCA, CMP, 5643-2, 93911-0, 52926-3, THYR #### [facility] ([id number]) [address] [place] [address] 66966 Monocytes/100 WBC (Bld) 6.0 % Normal [facility] Comment on above: Performed By: #### Dhruv BCA, CMP, 5643-2, 36242-0, 40194-6, THYR #### [facility] ([id number]) [address] [place] [address] 55288 Neutrophils/100 WBC (Bld) 72.9 % Normal [facility] Comment on above: Performed By: #### C BCA, CMP, 5643-2, 76311-4, 04954-7, THYR #### [facility] ([id number]) [address] [place] [address] 87854 Platelet mean volume (Bld) [Entitic vol] 7.4 fL Normal 7-12 [facility] Comment on above: Performed By: #### C BCA, CMP, 5643-2, 60008-8, 18398-4, THYR #### [facility] ([id number]) [address] [place] [address] 45994 Platelets (Bld) [#/Vol] 332 10*3/uL Normal 150-450 [facility] Comment on above: Performed By: #### C BCA, CMP, 5643-2, 18139-4, 21594-0, THYR #### [facility] ([id number]) [address] [place] [address] 28765 RBC COUNT 4.45 X10E12/L Normal 3.80-5.20 [facility] Comment on above: Performed By: #### C BCA, CMP, 5643-2, 25289-7, 02884-9, THYR #### [facility] ([id number]) [address] [place] [address] 07766 WBC (Bld) [#/Vol] 10.6 10*3/uL Normal 4.0-11.0 [facility] Comment on above: Performed By: #### C BCA, CMP, 5643-2, 21549-0, 97246-9, THYR #### [facility] ([id number]) [address] [place] [address] 84090 COMPREHENSIVE METABOLIC PANE Elvin 12-27-2023 Albumin [Mass/Vol] 4.3 g/dL Normal 3.2-5.3 [facility] Comment on above: Performed By: #### C BCA, CMP, 5643-2, 62409-4, 16986-7, THYR #### [facility] ([id number]) [address] [place] [address] 68596 ALP [Catalytic activity/Vol] 75 U/L Normal 39-130 [facility] Comment on above: Performed By: #### C BCA, CMP, 5643-2, 77857-3, 63886-7, THYR #### [facility] ([id number]) [address] [place] [address] 18728 ALT [Catalytic activity/Vol] 18 U/L Normal 0-31 [facility] Comment on above: Performed By: #### C BCA, CMP, 5643-2, 38980-1, 98120-8, THYR #### [facility] ([id number]) [address] [place] [address] [place] [address] Anion gap [Moles/Vol] 7 mmol/L Normal 5-15 [facility] Comment on above: Performed By: #### C BCA, CMP, 5643-2, 87182-5, 20226-1, THYR #### [facility] ([id number]) [address] [place] [address] 82202 AST [Catalytic activity/Vol] 27 U/L Normal 0-41 [facility] Comment on above: Performed By: #### C BCA, CMP, 5643-2, 14248-5, 19856-1, THYR #### [facility] ([id number]) [address] [place] [address] 41812 Bilirubin [Mass/Vol] 0.5 mg/dL Normal 0.3-1.2 [facility] Comment on above: Performed By: #### C BCA, CMP, 5643-2, 53737-4, 17064-2, THYR #### [facility] ([id number]) [address] [place] [address] 26646 Calcium [Mass/Vol] 8.6 mg/dL Normal 8.5-10.5 [facility] Comment on above: Performed By: #### C BCA, CMP, 5643-2, 77687-9, 02499-9, THYR #### [facility] ([id number]) [address] [place] [address] 64959 Chloride [Moles/Vol] 106 mmol/L Normal 98-109 [facility] Comment on above: Performed By: #### C BCA, CMP, 5643-2, 42180-6, 30368-0, THYR #### [facility] ([id number]) [address] [place] [address] 53812 CO2 [Moles/Vol] 22 mmol/L Normal 22-32 [facility] Comment on above: Performed By: #### C BCA, CMP, 5643-2, 20691-7, 18089-4, THYR #### [facility] ([id number]) [address] [place] [address] 02594 Creatinine [Mass/Vol] 0.70 mg/dL Normal 0.40-1.00 [facility] Comment on above: Result Comment: METH OD TRACEABLE TO IDMS STANDARD Performed By: #### C SYED LEI, 5643-2, 17491-3, 59018-9, THYR #### [facility] ([id number]) [address] [place] [address] 46051 eGFR (CKD-EPI) NON-RACE DEPENDENT >90 Normal >59 [facility] Comment on above: Result Comment: Reported eGFR is based on the CKD-EPI 2020 equation that does not use a race coefficient. Performed By: #### C SYED LEI, 5643-2, 30532-2, 19742-9, THYR #### [facility] ([id number]) [address] [place] [address] 62449 Glucose [Mass/Vol] 105 mg/dL High 65-99 [facility] Comment on above: Performed By: #### C QUIQUE, SYED, 5643-2, , 68380-5, THYR #### [facility] ([id number]) [address] [place] [address] 72046 Potassium [Moles/Vol] 3.7 mmol/L Normal 3.5-5.0 [facility] Comment on above: Performed By: #### C BCA, SYED, 5643-2, 51407-0, 26627-6, THYR #### [facility] ([id number]) [address] [place] [address] 02989 Protein [Mass/Vol] 8.1 g/dL High 6.0-8.0 [facility] Comment on above: Performed By: #### C BCA, CMP, 5643-2, 86840-4, 46442-8, THYR #### [facility] ([id number]) [address] [place] [address] Sodium [Moles/Vol] 135 mmol/L Normal 134-146 [facility] Comment on above: Performed By: #### C BCA, CMP, 5643-2, 80267-0, 87573-6, THYR #### [facility] ([id number]) [address] [place] [address] Urea nitrogen [Mass/Vol] 13 mg/dL Normal 5-23 [facility] Comment on above: Performed By: #### C BCA, CMP, 5643-2, 90878-2, 42069-1, THYR #### [facility] ([id number]) [address] [place] [address]RAIN WO CONTon CT BRAIN WO [...] Mooney MD on 12/27/2023 11:39 AM Normal [facility] DRUG SCREEN, URINEon 024 AMPHETAMINE/METHAMP Negative Normal NEG [facility] Comment on above: Result Comment: AMPH /METH screening cut off = 1000 ng/mL Performed By: #### D WALLS #### [facility] ([id number]) [address] [place] [address] 67562 BARBITURATES Negative Normal NEG [facility] Comment on above: Result Comment: Evonne iturates screening cut off value = 200 ng/mL Performed By: #### D WALLS #### [facility] ([id number]) [address] [place] [address] 75902 BENZODIAZEPINES Negative Normal NEG [facility] Comment on above: Result Comment: Silas odiazepines screening cut off value = 200 ng/mL Performed By: #### D WALLS #### [facility] ([id number]) [address] [place] [address] 53268 CANNABINOIDS Positive Abnormal NEG [facility] Comment on above: Result Comment: Conf irmation available upon request. Cannabinoids/THC screening cut off value = 50 ng/mL Performed By: #### D WALLS #### [facility] ([id number]) [address] [place] [address] 78014 COCAINE METABOLITE Negative Normal NEG [facility] Comment on above: Result Comment: Coca ine screening cut off value = 300 ng/mL Performed By: #### D WALLS #### [facility] ([id number]) [address] [place] [address] 38881 ECSTASY Negative Normal NEG [facility] Comment on above: Result Comment: Ecst asy screening cut off value = 500 ng/mL This report is intended for use in clinical monitoring or management of patients. Performed By: #### D WALLS #### [facility] ([id number]) [address] [place] [address] 62585 METHADONE Negative Normal NEG [facility] Comment on above: Result Comment: Meth adone screening cut off value = 300 ng/mL. Performed By: #### D WALLS #### [facility] ([id number]) [address] [place] [address] 15219 OPIATES Negative Normal NEG [facility] Comment on above: Result Comment: Opia kami screening cut off value = 300 ng/mL NOTE: This test is used for the detection of codeine, hydrocodone (>1000 ng/mL), morphine and hydromorphone (>900 ng/mL) in urine. Performed By: #### D WALLS #### [facility] ([id number]) [address] [place] [address] 89860 OXYCODONE Negative Normal NEG [facility] Comment on above: Result Comment: Oxyc odone screening cut off value = 300 ng/mL NOTE: This test is used for the detection of oxycodone and oxymorphone in urine. Performed By: #### D WALLS #### [facility] ([id number]) [address] [place] [address] 10971 PHENCYCLIDINE Negative Normal NEG [facility] Comment on above: Result Comment: Phen cyclidine screening cut off value = 25 ng/mL Performed By: #### D WALLS #### [facility] ([id number]) [address] [place] [address] 70292 ETHANOLon 12-27-2023 Ethanol [Mass/Vol] mg/dL Normal 0.00-0.08 [facility] Comment on above: Result Comment: This report is intended for use in clinical monitoring or management of patients. Performed By: #### C BCA, CMP, 5643-2, 37124-5, 76722-2, THYR #### [facility] ([id number]) [address] [place] [address] 10931 HCG ( test) Ql (U)o n 12-27-2023 Beta HCG ( test) Ql (U) Negative Normal NEG [facility] Comment on above: Performed By: #### 2 106-3 #### [facility] ([id number]) [address] [place] [address] [place] [address] MAGNESIUMon 12-27-2023 Magnesium [Mass/Vol] 2.3 mg/dL Normal 1.8-2.6 [facility] Comment on above: Performed By: #### C QUIQUE, CMP, 5643-2, 74901-9, 05270-0, THYR #### [facility] ([id number]) [address] [place] [address] 33397 THYROID PROFILEon 12-27-2023 Free T4 [Mass/Vol] 0.83 ng/dL Normal 0.61-1.60 [facility] Comment on above: Performed By: #### C QUIQUE, SYED, 5643-2, 10843-5, 33073-1, THYR #### [facility] ([id number]) [address] [place] [address] 93314 TSH 1.78 uIU/mL Normal 0.49-4.67 [facility] Comment on above: Performed By: #### C QUIQUE, CMP, 5643-2, 58599-4, 59070-4, THYR #### [facility] ([id number]) [address] [place] [address] 51203 TROPONIN Ion 12-27-2023 Troponin I.cardiac [Mass/Vol] 0.02 ng/mL Normal 0.00-0.04 [facility] Comment on above: Performed By: #### C QUIQUE, CMP, 5643-2, 87081-8, 14501-8, THYR #### [facility] ([id number]) [address] [place] [address] 70364 URN MACROSCOPIC NURon 2023 BILIRUBIN KRISTA Negative Normal NEG [facility] Comment on above: Performed By: #### N UM #### [facility] ([id number]) [address] [place] [address] 04309 BLOOD/HGB KRISTA Negative Normal NEG [facility] Comment on above: Performed By: #### N UM #### [facility] ([id number]) [address] [place] [address] 95292 GLUCOSE KRISTA Negative Normal NEG [facility] Comment on above: Performed By: #### N UM #### [facility] ([id number]) [address] [place] [address] [place] [address] KETONES KRISTA Negative Normal NEG [facility] Comment on above: Performed By: #### N UM #### [facility] ([id number]) [address] [place] [address] 83607 LEUKOCYTE ESTERASE KRISTA Negative Normal NEG [facility] Comment on above: Performed By: #### N UM #### [facility] ([id number]) [address] [place] [address] 85243 NITRITE KRISTA Negative Normal NEG [facility] Comment on above: Performed By: #### N UM #### [facility] ([id number]) [address] [place] [address] 55552 PH KRISTA 6.0 Normal 5.0-8.5 [facility] Comment on above: Performed By: #### N UM #### [facility] ([id number]) [address] [place] [address] 29180 PROTEIN KRISTA 30 mg/dL Abnormal NEG [facility] Comment on above: Performed By: #### N UM #### [facility] ([id number]) [address] [place] [address] [place] [address] SPECIFIC GRAVITY KRISTA 1.025 Normal 1.003-1.035 [facility] Comment on above: Performed By: #### N UM #### [facility] ([id number]) [address] [place] [address] [place] [address] UROBILINOGEN KRISTA 0.2 eu/dL Normal <1.1 [facility] Comment on above: Performed By: #### N UM #### [facility] ([id number]) [address] [place] [address], [place] [address] AMYLASEon 09-25-2022 Amylase [Catalytic activity/Vol] 56 U/L Normal 25-115 [facility] Comment on above: Performed By: #### A MY, CMP, LIPA #### [facility] [address] [address] [address] Hanh Cervantes CBC AUTO DIFFon 09-25-2022 BASO # 0.1 103/ul Normal 0.0-0.1 [facility] Comment on above: Performed By: #### C BC #### [facility] [address] [place] [address] Dr. Hanh Cervantes Basophils/100 WBC (Bld) 0.5 % Normal 0.2-2.0 [facility] Comment on above: Performed By: #### C BC #### [facility] [address] [place] [address] Dr. Hanh Cervantes EO # 0.1 103/ul Normal 0.0-0.7 [facility] Comment on above: Performed By: #### C BC #### [facility] [address] [address] [address] Hanh Cervantes Eosinophils/100 WBC (Bld) 0.5 % Critically low 0.9-7.0 [facility] Comment on above: Performed By: #### C BC #### [facility] [address] [place] [address] Dr. Hanh Cervantes Erythrocyte distribution width (RBC) [Ratio] 12.4 % Normal 11.0-15.0 [facility] Comment on above: Performed By: #### C BC #### [facility] [address] [place] [address] Dr. Hanh Cervantes Hematocrit (Bld) [Volume fraction] 42.1 % Normal 36.0-48.0 [facility] Comment on above: Performed By: #### C BC #### [facility] [address] [place] [address] Dr. Hanh Cervantes Hemoglobin (Bld) [Mass/Vol] 14.3 g/dL Normal 12.0-16.0 [facility] Comment on above: Performed By: #### C BC #### [facility] [address] [place] [address] Dr. Hanh Cervantes IG # 0.04 10e3/ul Critically high 0.00-0.03 [facility] Comment on above: Performed By: #### C BC #### [facility] [address] [place] [address] Dr. Hanh Cervantes IG % 0.3 % Normal 0.0-0.5 [facility] Comment on above: Performed By: #### C BC #### [facility] [address] [place] [address] Dr. Hanh Cervantes LYMPH # 1.1 103/ul Critically low 1.2-3.8 [facility] Comment on above: Performed By: #### C BC #### [facility] [address] [place] [address] Dr. Hanh Cervantes Lymphocytes/100 WBC (Bld) 9.7 % Critically low 20.5-60.0 [facility] Comment on above: Performed By: #### C BC #### [facility] [address] [place] [address] Dr. Hanh Cervantes MANUAL DIFF REQ NO Normal [facility] Comment on above: Performed By: #### C BC #### [facility] [address] [place] [address] Dr. Hanh Cervantes MCH (RBC) [Entitic mass] 28.9 pg Normal 26.7-34.0 [facility] Comment on above: Performed By: #### C BC #### [facility] [address] [place] [address] Dr. Hanh Cervantes MCHC (RBC) [Mass/Vol] 34.0 g/dL Normal 29.9-35.2 [facility] Comment on above: Performed By: #### C BC #### [facility] [address] [place] [address] Dr. Hanh Cervantes MCV (RBC) [Entitic vol] 85.2 fL Normal 81.0-99.0 [facility] Comment on above: Performed By: #### C BC #### [facility] [address] [address] [address] Hanh Cervantes MONO # 0.5 103/ul Normal 0.3-0.8 [facility] Comment on above: Performed By: #### C BC #### [facility] [address] [address] [address] Hanh Cervantes Monocytes/100 WBC (Bld) 4.4 % Normal 1.7-12.0 [facility] Comment on above: Performed By: #### C BC #### [facility] [address] [address] [address] Hanh Cervantes NEUT # 9.9 103/ul Critically high 1.4-6.5 [facility] Comment on above: Performed By: #### C BC #### [facility] [address] [place] [address] Dr. Hanh Cervantes Neutrophils/100 WBC (Bld) 84.6 % Critically high 43.0-75.0 [facility] Comment on above: Performed By: #### C BC #### [facility] [address] [place] [address] Dr. Hanh Cervantes Platelet mean volume (Bld) [Entitic vol] 10.1 fL Normal 9.5-13.5 [facility] Comment on above: Performed By: #### C BC #### [facility] [address] [place] [address] Dr. Hanh Cervantes PLT 368 103/ul Normal 150-450 [facility] Comment on above: Performed By: #### C BC #### [facility] [address] [place] [address] Dr. Hanh Cervantes RBC 4.94 106/ul Normal 4.20-5.40 [facility] Comment on above: Performed By: #### C BC #### [facility] [address] [place] [address] Dr. Hanh Cervantes WBC 11.7 103/ul Critically high 4.0-11.0 [facility] Comment on above: Performed By: #### C BC #### [facility] [address] [place] [address] Dr. Hanh Cervantes LIPASEon 09-25-2022 Lipase [Catalytic activity/Vol] 82.0 U/L Normal 73.0-393.0 [facility] Comment on above: Performed By: #### A MY, CMP, LIPA #### [facility] [address] [place] [address] Dr. Hanh Cervantes PROF 14(COMP METB)on 022 Albumin [Mass/Vol] 4.6 g/dL Normal 3.4-5.0 [facility] Comment on above: Performed By: #### A MY, CMP, LIPA #### [facility] [address] [place] [address] Dr. Hanh Cervantes Albumin/Globulin [Mass ratio] 1.1 {ratio} Normal [facility] Comment on above: Performed By: #### A MY, CMP, LIPA #### [facility] [address] [place] [address] Dr. Hanh Cervantes ALP [Catalytic activity/Vol] 88 U/L Normal 46-116 [facility] Comment on above: Performed By: #### A MY, CMP, LIPA #### [facility] [address] [place] [address] Dr. Hanh Cervantes ALT [Catalytic activity/Vol] 45 U/L Normal 14-59 [facility] Comment on above: Performed By: #### A MY, CMP, LIPA #### [facility] [address] [place] [address] Dr. Hanh Cervantes Anion gap [Moles/Vol] 14.7 mmol/L Normal [facility] Comment on above: Performed By: #### A MY, CMP, LIPA #### [facility] [address] [place] [address] Dr. Hanh Cervantes AST [Catalytic activity/Vol] 24 U/L Normal 15-37 [facility] Comment on above: Performed By: #### A MY, CMP, LIPA #### [facility] [address] [place] [address] Dr. Hanh Cervantes Bilirubin [Mass/Vol] 0.6 mg/dL Normal 0.2-1.0 [facility] Comment on above: Performed By: #### A MY, CMP, LIPA #### [facility] [address] [address] [address] Hanh Cervantes Calcium [Mass/Vol] 9.4 mg/dL Normal 8.5-10.1 [facility] Comment on above: Performed By: #### A MY, CMP, LIPA #### [facility] [address] [place] [address] Dr. Hanh Cervantes Chloride [Moles/Vol] 100 mmol/L Normal 98-107 [facility] Comment on above: Performed By: #### A MY, CMP, LIPA #### [facility] [address] [place] [address] Dr. Hanh Cervantes CO2 [Moles/Vol] 25.9 mmol/L Normal 21.0-32.0 [facility] Comment on above: Performed By: #### A MY, CMP, LIPA #### [facility] [address] [place] [address] Dr. Hanh Cervantes Creatinine [Mass/Vol] 0.78 mg/dL Normal 0.55-1.02 [facility] Comment on above: Performed By: #### A MY, CMP, LIPA #### [facility] [address] [place] [address] Dr. Hanh Cervantes EGFR-AF BELARUSIAN >60 Normal >=60 [facility] Comment on above: Performed By: #### A MY, CMP, LIPA #### [facility] [address] [place] [address] Dr. Hanh Cervantes EGFR-NON AF BELARUSIAN >60 Normal >=60 [facility] Comment on above: Performed By: #### A MY, CMP, LIPA #### [facility] [address] [place] [address] Dr. Hanh Cervantes Globulin (S) [Mass/Vol] 4.3 g/dL Normal [facility] Comment on above: Performed By: #### A MY, CMP, LIPA #### [facility] [address] [address] [address] Hanh Cervantes Glucose [Mass/Vol] 117 mg/dL Critically high 74-106 [facility] Comment on above: Performed By: #### A MY, CMP, LIPA #### [facility] [address] [address] [address] Hanh Cervantes Potassium [Moles/Vol] 3.6 mmol/L Normal 3.5-5.1 [facility] Comment on above: Performed By: #### A MY, CMP, LIPA #### [facility] [address] [address] [address] Hanh Cervantes Protein [Mass/Vol] 8.9 g/dL Critically high 6.4-8.2 [facility] Comment on above: Performed By: #### A MY, CMP, LIPA #### [facility] [address] [address] [address] Hanh Cervantes Sodium [Moles/Vol] 137 mmol/L Normal 136-145 [facility] Comment on above: Performed By: #### A MY, CMP, LIPA #### [facility] [address] [address] [address] Hanh Cervantes Urea nitrogen [Mass/Vol] 9.0 mg/dL Normal 7.0-18.0 [facility] Comment on above: Performed By: #### A MY, CMP, LIPA #### [facility] [address] [address] [address] Hanh Cervantes Urea nitrogen/Creatinine [Mass ratio] 11.5 mg/mg Normal [facility] Comment on above: Performed By: #### A MY, CMP, LIPA #### [facility] [address] [address] [address] Hanh Cervantes Vital Signs Date Time Vital Sign Value Performing Clinician Facility 04-22-2024 07:30-0400 Body temperature 97.9 [degF] MD Russ Vaughn Work Phone: [facility] 04-22-2024 07:30-0400 Diastolic blood pressure 98 mm[Hg] MD Muhamid Roderick Work Phone: [facility] 04-22-2024 07:30-0400 Heart rate 85 /min MD Solano Roderick Work Phone: [facility] 04-22-2024 07:30-0400 Respiratory rate 18 /min MD Solano Roderick Work Phone: [facility] 04-22-2024 07:30-0400 SaO2% (BldA) [Mass fraction] 99 % MD Solano Roderick Work Phone: [facility] 04-22-2024 07:30-0400 Systolic blood pressure 164 mm[Hg] MD Solano Roderick Work Phone: [facility] 04-19-2024 14:12-0400 Body height 160.02 cm MD Solano Roderick Work Phone: [facility] 04-18-2024 08:11-0400 Body weight 74.84 kg MD Solano Roderick Work Phone: [facility] 07-22-2023 16:40-0400 Body height 160.02 cm Barb Woodard Other [employer] Other 07-22-2023 16:40-0400 Body mass index (BMI) [Ratio] 27.99 kg/m2 Barb Woodard Other [employer] Other 07-22-2023 16:40-0400 Body temperature 99.7 [degF] Barb Woodard Other [employer] Other 07-22-2023 16:40-0400 Body weight 71.67 kg Barb Woodard Other [employer] Other 07-22-2023 16:40-0400 Diastolic blood pressure 83 mm[Hg] Barb Woodard Other [employer] Other 07-22-2023 16:40-0400 Respiratory rate 18 /min Barb Elainemond Other [employer] Other 07-22-2023 16:40-0400 SaO2% (BldA) [Mass fraction] 99 % Barb Woodard Other [employer] Other 07-22-2023 16:40-0400 Systolic blood pressure 119 mm[Hg] Barb Woodard Other [employer] Other Encounters Encounter Date Encounter Type Care Provider Facility Start: 06-28-2024 ambulatory Russ Vaughn Facility:[facility] Start: 04-20-2024 Non-patient / Non-visit MD Emeka Vaughn Work Phone: [facility] Work Phone: Start: 04-17-2024 End: 04-22-2024 Evaluation and management of inpatient MD Russ Vaughn Work Phone: [address] Work Phone: Start: 04-16-2024 End: 04-18-2024 Emergency department patient visit HIMANSHU SETHI [facility] Start: 03-03-2024 End: 03-03-2024 ambulatory [facility] Start: 02-23-2024 End: 02-23-2024 ambulatory [facility] Start: 02-02-2024 End: 02-02-2024 ambulatory CELINA PARKER Not Available Start: 01-29-2024 End: 01-29-2024 ambulatory [facility] Start: 01-11-2024 End: 01-11[facility]: 01-11-2024 End: 01-11-2024 ambulatory [facility] Start: 01-07-2024 Orders Only Russ Vaughn MD Work Phone: [facility] Comment on above: Seizure ([facility]) (P rimary Dx); Muscle cramp Start: 01-06-2024 Emergency department patient visit [facility] Start: 01-06-2024 End: 01-06-2024 Emergency department patient visit [facility] Start: 01-06-2024 End: 01-06-2024 Emergency department patient visit [facility] Start: 12-28-2023 Telephone encounter [facility] Comment on above: New Patient Appt. Start: 12-27-2023 End: 12-28-2023 Emergency department patient visit [facility] Start: 11-24-2023 End: 11-24-2023 ambulatory [facility] Start: 11-24-2023 End: 11-24-2023 Office outpatient visit 25 minutes Russ Vaughn MD Work Phone: [facility] Comment on above: Anxiety (Primary Dx) ; Depression, unspecified depression type Start: 10-26-2023 End: 10-26-2023 ambulatory CELINA KEITH Not Available Start: 10-08-2023 ambulatory [facility] Start: 10-08-2023 End: 10-08-2023 Office outpatient visit 15 minutes Russ Vaughn MD Work Phone: [facility] Comment on above: Generalized anxiety disorder Start: 08-31-2023 End: 08-31-2023 ambulatory CELINA KEITH Not Available Start: 07-22-2023 End: 07-22-2023 ambulatory Barb Woodard Other [employer] Other Start: 07-22-2023 Office outpatient vi sit 15 minutes Barb Woodard [facility] Start: 09-25-2022 End: 09-25-2022 [...] Td Vaccines (8 - Td or Tdap) [facility] Start: 01-05-2025 Adult BMI Screening Adult BMI Screen ing [facility] Start: 01-05-2025 Tobacco Screening Tobacco Screening [facility] Start: 12-26-2024 Adult BMI Screening Adult BMI Screen ing [facility] Start: 12-26-2024 Tobacco Screening Tobacco Screening [facility] Start: 11-24-2024 Depression Screening Depression Scre ening [facility] Start: 11-24-2024 Tobacco Screening Tobacco Screening [facility] Start: 09-09-2024 Tobacco Screening Tobacco Screening [facility] Start: 08-25-2024 Adult BMI Screening Adult BMI Screen ing [facility] Start: 06-05-2024 Influenza vaccination Influenza Vacc ine [facility] Start: 04-22-2024 [facility] Start: 04-17-2024 Hospital admission [facility] Start: 04-17-2024 [facility] Start: 01-29-2024 End: 01-29-2024 Patient encounter procedure 01/29/2024 1:30 PM EDT Office Visit [facility] [address] [facility] [place] [address] Kosta Keyes, COMMUNITY AFFAIRS MANAGER-ADMINISTRATIVE SUPPORT MANAGER [address] [place] [id number] Faith Sharma MD [address] [place] [address], [address] [address] [facility] Start: 01-07-2024 End: 01-06-2025 CBC W Auto Differential panel - Blood CBC auto differential Lab Routine Seizure ([facility]) Muscle cramp Expected: 01/07/2024 (Approximate), Expires: 01/06/2025 [employer] Work Phone: Comment on above: Expected: 01/07/2024 (Approximate), Expires: 01/06/2025 Start: 01-07-2024 End: 01-06-2025 Comprehensive metabolic 2000 panel - Serum or Plasma Comprehensive metabolic panel Lab Routine Seizure ([facility]) Muscle cramp Expected: 01/07/2024 (Approximate), Expires: 01/06/2025 [facility] Comment on above: Expected: 01/07/2024 (Approximate), Expires: 01/06/2025 Start: 01-07-2024 End: 01-06-2025 Magnesium [Mass/volume] in Serum or Plasma Magnesium Lab Routine Seizure ([facility]) Muscle cramp Expected: 01/07/2024 (Approximate), Expires: 01/06/2025 [facility] [employer] [facility] Comment on above: Expected: 01/07/2024 (Approximate), Expires: 01/06/2025 Start: 01-07-2024 End: 01-06-2025 Phosphate [Mass/volume] in Serum or Plasma Phosphorus Lab Routine Seizure ([facility]) Muscle cramp Expected: 01/07/2024 (Approximate), Expires: 01/06/2025 [facility] Comment on above: Expected: 01/07/2024 (Approximate), Expires: 01/06/2025 Start: 01-07-2024 End: 01-06-2025 TSH with Reflex TSH with Reflex Lab Routine Seizure ([facility]) Muscle cramp Expected: 01/07/2024 (Approximate), Expires: 01/06/2025 [facility] [employer] [facility] Comment on above: Expected: 01/07/2024 (Approximate), Expires: 01/06/2025 Start: 10-02-2023 Depression Screening Depression Scre ening [facility] Start: 06-05-2023 Influenza vaccination Influenza Vacc ine [facility] Start: 2021 Screening for malign ant neoplasm of cervix Pap Smear [facility] Start: 2018 Adult BMI Follow Up Plan Adult BMI Follow Up Plan [facility] Start: 2000 Screening for Chlamy yuli trachomatis Chlamydia Screening [facility] End: 01-06-2025 C-reactive protein C-reactive protein Lab Routine Seizure ([facility]) Muscle cramp 1 Occurrences starting 01/07/2024 until 01/06/2025 [facility] Comment on above: 1 Occurrences starti ng 01/07/2024 until 01/06/2025 End: 01-06-2025 CK Total CK Total Lab Routine Seizure ([facility]) Muscle cramp 1 Occurrences starting 01/07/2024 until 01/06/2025 [facility] Comment on above: 1 Occurrences starti ng 01/07/2024 until 01/06/2025 End: 01-06-2025 LDH LDH Lab Routine Seizure ([facility]) Muscle cramp 1 Occurrences starting 01/07/2024 until 01/06/2025 [facility] Comment on above: 1 Occurrences starti ng 01/07/2024 until 01/06/2025 Patient Education Depression, Ad ult (DC) [facility] [place] Instructions Know your Meds [facility] Work Phone: Patient referral [facility] Work Phone: End: 01-06-2025 Prolactin level Prolactin level Lab Routine Seizure ([facility]) Muscle cramp 1 Occurrences starting 01/07/2024 until 01/06/2025 [facility]

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
[2024-07-01 07:00] LABS: Basophils Absolute Auto 0.1 10^3/uL (0.0-0.1); Basophils Percent Auto 0.8 % (0.2-2.0); Eosinophils Absolute Auto 0.4 10^3/uL (0.0-0.7); Eosinophils Percent Auto 3.2 % (0.9-7.0); Hematocrit 42.9 % (36.0-48.0); Hemoglobin 14.1 g/dL (12.0-16.0); Immature Granulocytes Abs Auto 0.06 10^3/uL (0.00-0.03); Immature Granulocytes Pct Auto 0.5 % (0.0-0.5); Lymphocytes Absolute Auto 2.4 10^3/uL (1.2-3.8); Lymphocytes Percent Auto 20.3 % (20.5-60.0); Mean Corpuscular HGB Conc 32.9 g/dL (29.9-35.2); Mean Corpuscular Hemoglobin 30.3 pg (26.7-34.0); Mean Corpuscular Volume 92.1 fL (81.0-99.0); Mean Platelet Volume 9.6 fL (9.5-13.5); Monocytes Absolute Auto 0.7 10^3/uL (0.3-0.8); Monocytes Percent Auto 5.8 % (1.7-12.0); Neutrophils Absolute Auto 8.2 10^3/uL (1.4-6.5); Neutrophils Percent Auto 69.4 % (43.0-75.0); Platelet Count 349 10^3/uL (150-450); Red Blood Count 4.66 10^6/uL (4.20-5.40); Red Cell Distribution Width 13.7 % (11.0-15.0); White Blood Count 11.8 10^3/uL (4.0-11.0)
[2024-07-01 07:04] LABS: Bilirubin Urine NEGATIVE (NEGATIVE); Blood Urine LARGE (NEGATIVE); Clarity Urine CLEAR (CLEAR); Color Urine YELLOW (YELLOW); Glucose Urine UA NEGATIVE (NEGATIVE); Ketones Urine NEGATIVE (NEGATIVE); Leukocyte Esterase Urine NEGATIVE (NEGATIVE); Nitrite Urine NEGATIVE (NEGATIVE); Protein Urine NEGATIVE (NEG/TRACE); Specific Gravity Urine 1.025 (1.005-1.025); Urobilinogen Urine 0.2 EU/dL (0.2-1.0)
[2024-07-01 07:08] LABS: HCG Qualitative Urine* NEGATIVE (NEGATIVE); Internal Control Within Normal Limits
[2024-07-01 07:10] LABS: Urine Microscopic Indicated YES
[2024-07-01 07:11] LABS: Alanine Aminotransferase 21 U/L (14-59); Albumin Globulin Ratio 0.9; Albumin Level 3.8 g/dL (3.4-5.0); Alkaline Phosphatase 99 U/L (46-116); Anion Gap 10.1; Aspartate Amino Transferase 18 U/L (15-37); BUN Creatinine Ratio 14.1; Bilirubin Total 0.3 mg/dL (0.2-1.0); Calcium 8.6 mg/dL (8.5-10.1); Carbon Dioxide 28.9 mmol/L (21.0-32.0); Chloride 101 mmol/L (98-107); Estimated GFR (African America >60 (>=60); Estimated GFR (Non-African Ame >60 (>=60); Glucose 98 mg/dL (74-106); Sodium 136 mmol/L (136-145); Total Protein 7.8 g/dL (6.4-8.2)
[2024-07-01] MEDS: KETOROLAC TROMETHAMINE 30 MG/ML VIAL IVP (07:11)
[2024-07-01] MEDS: 0.9 % SODIUM CHLORIDE 1,000 ML 999 ML IV (07:11)
[2024-07-01 07:13] LABS: Lactate/Lactic Acid 0.9 mmol/L (0.4-2.0)
[2024-07-01 07:21] LABS: Bacteria Urine TRACE #/HPF (NONE SEEN); RBC Urine 20-50 #/HPF (0-2); WBC Urine NONE SEEN #/HPF (NONE SEEN)
[2024-07-01 07:22] LABS: Mucus Urine NONE SEEN (NONE SEEN); Squamous Epithelial Cell Urine FEW #/LPF (NONE/RARE); Urine Culture Indicated NO
--- NOTE | 2024-07-01 08:43 | ED.SEIZURE1 ---
HPI - Seizure General Chief Complaint: Seizure Stated Complaint: seizure 2x this morning Time Seen by Provider: 07/01/24 06:27 Source: patient Mode of arrival: walk-in Limitations: no limitations History of Present Illness HPI Narrative: 24-year-old female presents to the emergency department for a seizure. The patient was initially seen by Dr. Cox and signed out to me at change of shift. Please see his full history and physical exam. Seizure History: Yes Place: home Related Data Home Medications ?Medication ?Instructions ?Recorded ?Confirmed lamotrigine 100 mg tablet 100 mg PO Q12H 07/01/24 07/01/24 paroxetine HCl 40 mg tablet 40 mg PO DAILY 07/01/24 07/01/24 venlafaxine 150 mg 150 mg PO DAILY 07/01/24 07/01/24 capsule,extended release 24 hr venlafaxine 75 mg capsule,extended 75 mg PO DAILY 07/01/24 07/01/24 release 24 hr Allergies Allergy/AdvReac Type Severity Reaction Status Date / Time No Known Drug Allergies Allergy Verified 06/20/24 09:42 PFSH PFSH Social History Little interest or pleasure in doing things: not at all Feeling down, depressed, or hopeless: not at all Exam Constitutional Vital Signs, click to edit/add: Last Vital Signs Temp 98.2 F 07/01/24 06:15 Pulse 98 H 07/01/24 06:40 Resp 16 07/01/24 06:40 BP 134/96 H 07/01/24 08:30 Pulse Ox 98 07/01/24 08:09 O2 Del Method Room Air 07/01/24 06:15 Course Vital Signs Vital signs: Vital Signs Temperature 98.2 F 07/01/24 06:15 Pulse Rate 99 H 07/01/24 06:15 Respiratory Rate 15 07/01/24 06:15 Blood Pressure 148/116 H 07/01/24 06:15 Pulse Oximetry 98 07/01/24 06:15 Oxygen Delivery Method Room Air 07/01/24 06:15 Temperature 98.2 F 07/01/24 06:15 Pulse Rate 98 H 07/01/24 06:40 Respiratory Rate 16 07/01/24 06:40 Blood Pressure 134/96 H 07/01/24 08:30 Pulse Oximetry 98 07/01/24 08:09 Oxygen Delivery Method Room Air 07/01/24 06:15 MDM - Seizure MDM Narrative Medical decision making narrative: The patient was given IV Toradol for headache and that is now essentially resolved. She is feeling much better and is able to be discharged home. Blood work here is negative and CT from other facility was reviewed and found to be negative. She has an appointment with neurology on July 12 and she will contact them to determine if she can be seen sooner, otherwise we will keep that appointment. She was cautioned not to drive. Treatment diagnosis and follow-up were discussed with the patient. Differential Diagnosis Differential diagnosis: Likely generalized seizure and epileptic seizure Lab Data Attestation: I reviewed the patient's lab results. Labs: Lab Results 07/01/24 07/01/24 Range/Units 06:25 06:45 WBC 11.8 H (4.0-11.0) 10^3/uL RBC 4.66 (4.20-5.40) 10^6/uL Hgb 14.1 (12.0-16.0) g/dL Hct 42.9 (36.0-48.0) % MCV 92.1 (81.0-99.0) fL MCH 30.3 (26.7-34.0) pg MCHC 32.9 (29.9-35.2) g/dL RDW 13.7 (11.0-15.0) % Plt Count 349 (150-450) 10^3/uL MPV 9.6 (9.5-13.5) fL Neut % (Auto) 69.4 (43.0-75.0) % Lymph % (Auto) 20.3 L (20.5-60.0) % [place] % (Auto) 5.8 (1.7-12.0) % Eos % (Auto) 3.2 (0.9-7.0) % Baso % (Auto) 0.8 (0.2-2.0) % Neut # (Auto) 8.2 H (1.4-6.5) 10^3/uL Lymph # (Auto) 2.4 (1.2-3.8) 10^3/uL [place] # (Auto) 0.7 (0.3-0.8) 10^3/uL Eos # (Auto) 0.4 (0.0-0.7) 10^3/uL Baso # (Auto) 0.1 (0.0-0.1) 10^3/uL Abs Immat Gran (auto) 0.06 H (0.00-0.03) 10^3/uL Imm/Tot Granulo (auto) 0.5 (0.0-0.5) % Sodium 136 (136-145) mmol/L Potassium 4.0 (3.5-5.1) mmol/L Chloride 101 (98-107) mmol/L Carbon Dioxide 28.9 (21.0-32.0) mmol/L Anion Gap 10.1 BUN 11.0 (7.0-18.0) mg/dL Creatinine 0.78 (0.55-1.02) mg/dL Est GFR ( Amer) >60 (>=60) Est GFR (Non-Af Amer) >60 (>=60) BUN/Creatinine Ratio 14.1 Glucose 98 (74-106) mg/dL Lactate 0.9 (0.4-2.0) mmol/L Calcium 8.6 (8.5-10.1) mg/dL Total Bilirubin 0.3 (0.2-1.0) mg/dL AST 18 (15-37) U/L ALT 21 (14-59) U/L Alkaline Phosphatase 99 (46-116) U/L Total Protein 7.8 (6.4-8.2) g/dL Albumin 3.8 (3.4-5.0) g/dL Globulin 4.0 g/dL Albumin/Globulin Ratio 0.9 Urine Color Yellow (YELLOW) Urine Clarity Clear (CLEAR) Urine pH 6.0 (5.0-9.0) Ur Specific [place] 1.025 (1.005-1.025) Urine Protein Negative (NEG/TRACE) mg/dL Urine Glucose (UA) Negative (NEGATIVE) mg/dL Urine Ketones Negative (NEGATIVE) mg/dL Urine Occult Blood Large A (NEGATIVE) Urine Nitrite Negative (NEGATIVE) Urine Bilirubin Negative (NEGATIVE) Urine Urobilinogen 0.2 (0.2-1.0) EU/dL Ur Leukocyte Esterase Negative (NEGATIVE) Urine RBC 20-50 A (0-2) #/HPF Urine WBC None seen (NONE SEEN) #/HPF Ur Squamous Epith Cells Few A (NONE/RARE) #/LPF Urine Bacteria Trace A (NONE SEEN) #/HPF Urine Mucus None seen (NONE SEEN) Ur Culture Indicated? No Urine HCG, Qual Negative (NEGATIVE) Discharge Plan Discharge Chief Complaint: Seizure Clinical Impression: Seizure Patient Disposition: Home, Self-Care Time of Disposition Decision: 08:42 Condition: Good Mode of Transportation: Private Vehicle Prescriptions / Home Meds: No Action venlafaxine 75 mg capsule,extended release 24hr 75 mg PO DAILY venlafaxine 150 mg capsule,extended release 24hr 150 mg PO DAILY paroxetine HCl 40 mg tablet 40 mg PO DAILY lamotrigine 100 mg tablet 100 mg PO Q12H Print Language: Citizen Of [place] Instructions: New-Onset Seizure in Adults (ED), Epilepsy in Older Adults (ED) Additional Instructions: Follow-up with your neurologist. Contact their office to see if you can be seen sooner than July 12. Referrals: Physician,Non-Staff, MD [Primary Care Provider] - 1 week
--- NOTE | 2024-07-01 11:48 | ECG_ITS ---
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
== END 2024-07-01 08:49 | disposition home or self-care (01) ==
PROVIDERS: Internal Medicine; Emergency Provider Emergency Medicine
DX: R56.9 Unspecified convulsions (principal)
CPT/HCPCS: 36415; 80053; 81001; 83605; 84703; 85025; 93005; 96374; 99284; J1885

== ENCOUNTER 2024-11-03 15:59 | Emergency (ER) | payer OTHER, SELFPAY ==
[2024-11-03 16:05] VITALS: BP 124/90; PULSE 100; TEMP 37.4; O2SAT 98; BMI 36.0
--- NOTE | 2024-11-03 16:13 | PC.NURSE ---
red raised rash to bilat arms, hands, chest, abd and back.
--- NOTE | 2024-11-03 16:40 | ED_ITS ---
HPI - Allergic Reaction General Chief complaint: Allergic Reaction Stated complaint: Allergic Reaction Time Seen by Provider: 11/03/24 16:07 Source: patient Mode of arrival: walk-in History of Present Illness HPI narrative: This patient is a 24-year-old female with a history of seizure disorder who presents to the emergency department at the recommendation of her neurologist office for a rash which has been present for the last 3 weeks. She states 6 weeks ago she was changed from daily Lamictal to twice daily and Keppra was added in for her. For the last 3 weeks she has had a burning itchy rash over the forearms and minimally over the trunk. She has had no lip swelling, peeling or sloughing of the skin, difficulty breathing. She has a chronic eczematous rash to the palm of the right hand that is not new or different. She has no concern for . She has not taken any medications prior to arrival for her symptoms. She states she called the neurologist office today and reported the rash for the last 3 weeks, they instructed her to stop her medications and come to the emergency department to be evaluated for Hills-Gab syndrome. Related Data Home Medications ?Medication ?Instructions ?Recorded ?Confirmed lamotrigine 100 mg tablet 100 mg PO Q12H 07/01/24 07/01/24 paroxetine HCl 40 mg tablet 40 mg PO DAILY 07/01/24 07/01/24 venlafaxine 150 mg 150 mg PO DAILY 07/01/24 07/01/24 capsule,extended release 24 hr venlafaxine 75 mg capsule,extended 75 mg PO DAILY 07/01/24 07/01/24 release 24 hr Previous Rx's ?Medication ?Instructions ?Recorded hydroxyzine HCl 25 mg tablet 25 mg PO Q6H PRN itching #20 tabs 11/03/24 methylprednisolone 4 mg tablets in See Rx Instructions .Route 11/03/24 a dose pack (Medrol (Andry)) .COMPLEX #21 ea Allergies Allergy/AdvReac Type Severity Reaction Status Date / Time No Known Drug Allergies Allergy Verified 06/20/24 09:42 Review of Systems ROS Constitutional Denies: fever or chills Ears, nose, mouth, and throat Denies: throat pain or nasal congestion Cardiovascular Denies: chest pain Respiratory Denies: shortness of breath Gastrointestinal Denies: nausea or vomiting Integumentary/Breast Denies: rash Neurological Reports: dizziness; Denies: numbness in extremities or weakness in extremities Hematologic/Lymphatic Denies: easy bruising or easy bleeding PFSH PFS Social History Little interest or pleasure in doing things: not at all Feeling down, depressed, or hopeless: not at all Exam Narrative Exam Narrative: Gen.: Awake, alert, in no distress Head: Normocephalic, atraumatic ENT: Moist mucous membranes, no lip swelling or tongue swelling. No blistering or peeling of the skin of the face or mouth. Airway widely open and patent. Respiratory: No respiratory distress, lungs clear bilaterally, no wheezing or rhonchi Cardio: Regular rate and rhythm Extremities: Moves extremities equally Psych: Normal mood and affect Neuro: No focal neuro deficit Skin: Warm, dry, intact; erythematous minimally raised rash of the bilateral forearms that is dry, but no blistering or peeling is noted. Eczematous rash noted to the palm of the right hand. Faint erythematous maculopapular rash noted of the trunk. No mucous membrane involvement. No petechia or purpura. No bullous lesions, vesicles or blistering noted. Constitutional Vital Signs, click to edit/add: Last Vital Signs Temp 99.3 F 11/03/24 16:05 Pulse 100 H 11/03/24 16:05 Resp 16 11/03/24 16:05 BP 124/90 11/03/24 16:05 Pulse Ox 98 11/03/24 16:05 O2 Del Method Room Air 11/03/24 16:05 Course Vital Signs Vital signs: Vital Signs Temperature 99.3 F 11/03/24 16:05 Pulse Rate 100 H 11/03/24 16:05 Respiratory Rate 16 11/03/24 16:05 Blood Pressure 124/90 11/03/24 16:05 Pulse Oximetry 98 11/03/24 16:05 Oxygen Delivery Method Room Air 11/03/24 16:05 Temperature 99.3 F 11/03/24 16:05 Pulse Rate 100 H 11/03/24 16:05 Respiratory Rate 16 11/03/24 16:05 Blood Pressure 124/90 11/03/24 16:05 Pulse Oximetry 98 11/03/24 16:05 Oxygen Delivery Method Room Air 11/03/24 16:05 MDM - Allergic Reaction MDM Narrative Medical decision making narrative: This patient has a benign rash, she is hemodynamically stable. Rash has been present for 3 weeks and she has had no progression or peeling of the skin aside from her chronic eczema rash to the right hand. No concern for Hills-Gba syndrome at this time. I did try to contact her neurologist office in [place], Dr. Sharma for guidance on the patient's seizure medications however we did not receive a call back. Patient was instructed to contact the office for further instructions on what medications to take. She was instructed to stop the Keppra until she speaks with the office. She is started on antihistamines and steroids. Return to the ER if symptoms change or worsen. Patient was reevaluated by attending physician prior to discharge. SHARED APC VISIT, PHYSICIAN ATTESTATION: [id number] I performed a substantive part of the MDM during the patient?s E/M visit. I personally evaluated and examined the patient. I personally made or approved the documented management plan and acknowledge its risk of complications. Medical Records Attestation: I reviewed the patient's medical records. Discharge Plan Discharge Chief Complaint: Allergic Reaction Clinical Impression: Allergic reaction, Adverse reaction to drug Patient Disposition: Home, Self-Care Time of Disposition Decision: 16:46 Condition: Good Prescriptions / Home Meds: New hydroxyzine HCl 25 mg tablet 25 mg PO Q6H PRN (Reason: itching) Qty: 20 0RF methylprednisolone [Medrol (Andry)] 4 mg tablets,dose pack See Rx Instructions .ROUTE .COMPLEX Qty: 21 0RF Rx Instructions: Taper as directed No Action venlafaxine 75 mg capsule,extended release 24hr 75 mg PO DAILY venlafaxine 150 mg capsule,extended release 24hr 150 mg PO DAILY paroxetine HCl 40 mg tablet 40 mg PO DAILY lamotrigine 100 mg tablet 100 mg PO Q12H Print Language: [place] Instructions: General Allergic Reaction (ED) Additional Instructions: Please call Dr. Sharma's office for further instruction on your seizure medications. Referrals: Russ Arias ND [Primary Care Provider] - 1 week
[2024-11-03] MEDS: METHYLPREDNISOLONE SOD SUCC PF 125 MG/2 ML VIAL IM (16:52)
== END 2024-11-03 17:07 | disposition home or self-care (01) ==
PROVIDERS: Emergency Provider Emergency Medicine; PCP Student in an Organized Health Care Education/Training Program
DX: L23.89 Allergic contact dermatitis due to other agents (principal); L27.0 Generalized skin eruption due to drugs and medicaments taken internally; T42.6X5A Adverse effect of other antiepileptic and sedative-hypnotic drugs, initial encounter; G40.909 Epilepsy, unspecified, not intractable, without status epilepticus
CPT/HCPCS: 96372; 99284; J2919

== ENCOUNTER 2025-06-26 14:49 | Emergency (ER) | payer OTHER, SELFPAY ==
[2025-06-26 14:59] VITALS: BP 130/98; PULSE 107; TEMP 36.7; O2SAT 97; BMI 35.4
--- NOTE | 2025-06-26 15:08 | US_ITS ---
The [place] [address] Patient Name: SHERI BOOTHE MRN: [id number] date: 2000 Sex: F Assigned Patient Location: ED.MAIN Current Patient Location: ER Accession/Order Number: [id number] Exam Date: 06/26/2025 18:00 Report Date: 06/26/2025 19:29 At the request of: TRESSA RIVERO Procedure: US right upper quadrant Ultrasound right upper quadrant Indication right upper quadrant pain/abdominal pain for one week, nausea vomiting FINDINGS: Liver unremarkable size and echogenicity. Normal hepatopedal flow within the portal vein. Gallbladder unremarkable. Negative Meza's sign. Common bile duct 2.2 mm. Pancreas mostly obscured poorly evaluated. Right kidney 9.4 x 5.3 x 4.6 cm in size without hydronephrosis. US/US right upper quadrant IMPRESSION: Obscured pancreas. Otherwise grossly unremarkable right upper quadrant ultrasound. Impression dictated by: Jason Winn M.D. 06/26/2025 7:29 PM Dictation Location: [place] [address] Electronically authenticated by: [id number] Y Date: 06/26/2025 19:29
[2025-06-26] MEDS: 0.9 % SODIUM CHLORIDE 1,000 ML 999 ML IV (15:22)
--- OUTSIDE RECORDS SUMMARY | 2025-06-26 15:32 | XMS_ITS | CCD ---
Author Organization [facility] Care Team Providers Care Group Controller Name Role Phone REQUEST, DR NONE LISTED Primary Care Unavaila van SUAREZ, DR AMADOR Admitting Unavailable ERICK, DR AMADOR Attending Unavailable ERICK, DR AMADOR Consulting Unavailable Barb Woodard Unavailable CEE JIANG Referring Unavailable CEE JIANG Attending Unavailable CELINA PARKER Attending Unavailable CELINA PARKER Attending Unavailable CELINA PARKER Attending Unavailable MD Ottoniel Arias Primary Care Provider MD Obie Harley Admit Provider MD Obie Harley Attending Provider Ottoniel Arias MD Primary Care Provider Ottoniel Arias MD Primary Care Provider JES RAMOS I Attending Unavailable HUGO, MUHAMID M Primary Care Unavailable LEIGHA HERZOG Admitting Unavailable MAHSA, EHAD Attending Unavailable MAHSA, EHAD Referring Unavailable HUGO, MUHAMID M Primary Care Unavailable ALADAMAT, NAMEER Referring Unavailable HUGO, MUHAMID M Primary Care Unavailable ALADAMAT, NAMEER Referring Unavailable HUGO, MUHAMID M Primary Care Unavailable ALADAMAT, NAMEER Referring Unavailable HUGO, MUHAMID M Primary Care Unavailable ALADAMAT, NAMEER Referring Unavailable HUGO, MUHAMID M Primary Care Unavailable MARIE SINGH Admitting Unavailable MARLYN, ZAFAR Referring Unavailable HUGO, MUHAMID M Primary Care Unavailable ([facility] ONLY), NEURO-CONSULTING Consulting Amada vailaOLIVERIO Frankel Attending Unavailable DEANGELO MERRILL Consulting Unavailable ARUNA QUINONES Consulting Unavailab MARJORIE Zamora Consulting Unavailable CONSTANTINO, AVNI Consulting Unavailable CONSTANTINO, AVNI M Consulting Unavailable NOAH VASQUEZ Consulting Unavailable ZAFAR CLINE Referring Unavailable HUGO, MUHAMID M Primary Care Unavailable Hugo Ottoniel PANG Primary Care Provider Hugo Ottoniel PANG Primary Care Provider Hugo Ottoniel PANG Primary Care Provider Hugo LAKHWINDER hamid Primary Care Provider JANAY MUSTAFA Attending Unavailable HUGO, MUHAMID M Referring Unavailable HUGO, MUHAMID M Primary Care Unavailable BRYANT HINES Attending Unavailable HUGO, MUHAMID M Referring Unavailable HUGO, MUHAMID M Primary Care Unavailable BRYANT HINES Attending Unavailable HUGO, MUHAMID M Referring Unavailable HUGO, MUHAMID M Primary Care Unavailable BRYANT HINES Attending Unavailable HUGO, MUHAMID M Referring Unavailable HUGO, MUHAMID M Primary Care Unavailable LYNCHSHARON Attending Unavailable HUGO, MUHAMID M Referring Unavailable HUGO, MUHAMID M Primary Care Unavailable HUGO, MUHAMID M Referring Unavailable HUGO, MUHAMID M Primary Care Unavailable MEGHA BRAGG Attending Unavailable HUGO, MUHAMID M Primary Care Unavailable SUBHASH CHIN Attending Unavailab le HUGO, MUHAMID M Primary Care Unavailable JANAY MUSTAFA Referring Unavailable HUGO, MUHAMID M Primary Care Unavailable GUSTABO ANGUIANO Attending Unavailable HUGO, MUHAMID M Primary Care Unavailable ANNMARIE SANCHEZ Attending Unavailable HUGO, MUHAMID M Primary Care Unavailable BRYANT HINES Referring Unavailable HUGO, MUHAMID M Primary Care Unavailable SHARON LYNCH Referring Unavailable Donavon Montalvo Attending Unavailab le Donavon Montalvo Admitting Unavailab le Hugo, Muhamid Primary Care Unavailable HUGO, MUHAMID Primary Care Unavailable HUGO, MUHAMID Primary Care Unavailable HUGO, MUHAMID Primary Care Unavailable TRINY DUMAS Attending Unavailable TRINY DUMAS Admitting Unavailable HUGO, MUHAMID Primary Care Unavailable Medications Current Medications Medication Drug Class(es) Dates Sig (Normalized) Sig (Original) Acetaminophen (3 sources) Start: 04-25-2025 acetaminophen (TYLENOL) tablet 650 mg Start: 11-09-2024 take 500 mg by mouth every six hours as needed for pain and fever and headache Start: 11-05-2024 End: 11-05-2024 ARIPiprazole 15 mg oral tablet (16 sources) Atypical Antipsychotic Start: 10-14-2024 take 0.5 tablet by mouth in the morning ARIPiprazole (ABILIFY) 15 mg tablet Take 0.5 tablets (7.5 mg total) by mouth in the morning. 10/14/2024 Active Start: 10-14-2024 End: 11-08-2024 take 1 tablet by mouth in the morning ARIPiprazole (ABILIFY) 2 mg tablet Take 1 tablet (2 mg total) by mouth in the morning. 10/14/2024 Active Start: 10-14-2024 take 1 tablet by ken th once daily ARIPiprazole (ABILIFY) 5 MG tablet Take 1 tablet by mouth daily Active benzocaine 200 mg/ml mucosal spray (1 source) Standardized Chemical Allergen Start: 11-10-2024 busPIRone hydrochloride 5 mg oral tablet (7 sources) Start: 03-01-2025 busPIRone (BUS PAR) 5 mg tablet Take 1 tablet (5 mg total) by mouth. 03/01/2025 Active busPIRone HCl (B USPAR PO) Take by mouth in the morning and at bedtime Active busPIRone HCl (B USPAR PO) Take by mouth in the morning and at bedtime Suspended calcium chloride 0.0014 meq/ml / potassium chloride 0.004 meq/ml / sodium chloride 0.103 meq/ml / sodium lactate 0.028 meq/ml injectable solution (5 sources) Start: 11-05-2024 End: 11-06-2024 100 ml calcium gluconate 20 mg/ml injection (1 source) Start: 11-12-2024 clobetasol propionate 0.0005 mg/mg topical ointment (8 sources) Corticosteroid Start: 11-22-2024 clobetasoL (TEMOVATE) 0.05 % ointment Indications: Eczema of right hand Apply 1 Application topically nightly. 30 g 11/22/2024 Active ergocalciferol 1.25 mg oral capsule (1 source) Provitamin D2 Compound Start: 04-21-2024 take 1250 ug by mouth once Ergocalciferol (Vitamin D2) Active 1250 MCG PO Mo@0900 5 April 21, 2024 12:00am famotidine (PEPCID) 20 MG/2ML 20 mg in sodium chloride (PF) 0.9 % 10 mL injection (1 source) Start: 04-25-2025 take 10 mL intravenously once daily 20 mg, IntraVENous, DAILY, First dose on Thu04/25/25 at 1815, Until Discontinued, IV Push over minimum of 2 minutes - Dilute with 10 mL NS folic acid 1 mg oral tablet (1 source) Start: 04-21-2024 take 1 mg by mouth once daily Folic Acid Active 1 MG PO Daily April 21, 2024 12:00am glucagon (rdna) 1 mg injection (1 source) Antihypoglycemic Agent Start: 11-05-2024 50 ml glucose 500 mg/ml prefilled syringe (2 sources) Start: 11-05-2024 Start: 11-05-2024 500 ml glucose 50 mg/ml / potassium chloride 0.02 meq/ml / sodium chloride 4.5 mg/ml injection (1 source) Start: 04-26-2025 IntraVENous, at 100 mL/hr, CONTINUOUS, Starting on Thu04/26/25 at 0745 1 ml heparin sodium, porcine 5000 unt/ml injection (1 source) Unfractionated Heparin, Anti-coagulant Start: 11-05-2024 lacosamide 100 mg oral tablet (8 sources) Anti-epileptic Agent Start: 11-12-2024 End: 12-12-2024 take 1 tablet by mouth in the morning, then take 1 tablet by mouth at bedtime lacosamide (VIMPAT) 100 mg tablet Indications: Seizure (CMS-HCC) Take 1 tablet (100 mg total) by mouth in the morning and 1 tablet (100 mg total) before bedtime. Do all this for 30 days. 60 tablet 11/12/2024 12/12/2024 Active Start: 11-12-2024 End: 12-12-2024 Start: 11-07-2024 ammonium lactate 120 mg/ml topical cream (16 sources) Start: 11-11-2024 ammonium lacta te (AMLACTIN) 12 % cream Apply 1 Application topically 2 times daily 11/12/2024 Active 50 ml magnesium sulfate 40 mg/ml injection (4 sources) Start: 04-25-2025 Start: 11-07-2024 Start: 11-07-2024 End: 11-12-2024 metoclopramide 10 mg oral tablet (1 source) Dopamine-2 Receptor Antagonist Start: 07-22-2023 Reglan 10 MG 1 Tablet Orally 2-3 times per day prn nausea and vomiting Jul, Active 24 hr nicotine 0.583 mg/hr transdermal system (1 source) Cholinergic Nicotinic Agonist Start: 11-05-2024 OLANZapine 5 mg oral tablet (1 source) [...] THE MORNING Oral for 30 Days Active ondansetron 4 mg disintegrating oral tablet (14 sources) Serotonin-3 Receptor Antagonist Start: 06-20-2025 take 1 tablet by mouth three times daily as needed for nausea ondansetron (ZOFRAN-ODT) 4 MG disintegrating tablet Take 1 tablet by mouth 3 times daily as needed for Nausea or Vomiting 21 tablet 06/20/2025 Active Start: 06-20-2025 End: 06-20-2025 4 mg, IntraVENous, ONCE, 1 d ose, On 06/20/25 at 1230 Start: 05-13-2025 End: 05-13-2025 4 mg, IntraVENous, ONCE, 1 d ose, On 05/13/25 at 1515 Start: 02-23-2025 take 1 tablet by ken th every eight hours as needed for nausea ondansetron ODT (ZOFRAN ODT) 4 mg disintegrating tablet Dissolve 1 tablet (4 mg total) on tongue every 8 (eight) hours as needed for nausea for up to 10 doses. 10 tablet 02/23/2025 Active Start: 02-23-2025 End: 05-05-2025 ondansetron ODT (ZOFRAN ODT) 4 mg disintegrating tablet Dissolve 1 tablet (4 mg total) on tongue 3 (three) times a day as needed for nausea for up to 3 doses. 3 tablet 03/01/2025 05/05/2025 Discontinued (Duplicate Listing) Start: 11-05-2024 take 4 mg intravenou sly every six hours as needed for nausea and vomiting Start: 06-19-2023 Zofran 4 MG 1 tablet ODT tid prn 15 Jun, 2023 Not-Taking ondansetron (ZOFRAN-ODT) disintegrating tablet 4 mg (1 source) Start: 04-25-2025 ondansetron (ZOFRAN-ODT) disintegrating tablet 4 mg polyethylene glycol 3350 23144 mg powder for oral solution (1 source) Osmotic Laxative Start: 04-25-2025 microencapsulated potassium chloride 20 meq extended release oral tablet (7 sources) Start: 05-13-2025 End: 05-17-2025 take 1 tablet by mouth once daily potassium chloride (KLOR-CON M) 20 MEQ extended release tablet Take 1 tablet by mouth daily for 4 doses 4 tablet 05/13/2025 Active Start: 04-26-2025 End: 04-26-2025 40 mEq, Oral, ONCE, 1 dose, On Thu04/26/25 at 1200, Do not crush, chew, or suck on tablet. Tablet may also be broken in half and each half swallowed separately. Start: 04-25-2025 potassium chlo ride (KLOR-CON M) extended release tablet 40 mEq Start: 04-25-2025 End: 04-25-2025 10 mEq, IntraVENous, ONCE, 1 dose, On Thu04/25/25 at 1300, at 100 mL/hr, Potassium chloride doses are limited to a maximum of six consecutive doses before reassessment of laboratory values is needed. promethazine hydrochloride 12.5 mg oral tablet (2 sources) Phenothiazine Start: 05-05-2025 take 1 tablet by mouth every six hours as needed for nausea promethazine (PHENERGAN) 12.5 mg tablet Indications: Nausea and vomiting, unspecified vomiting type Take 1 tablet (12.5 mg total) by mouth every 6 (six) hours as needed for nausea or vomiting. 30 tablet 05/05/2025 Active promethazine (PHENERGAN) 12.5mg in sodium chloride 0.9% 50 mL IVPB SOLN 12.5 mg (1 source) Start: 04-26-2025 12.5 mg, IntraVENous, at 100 mL/hr, Administer over 30 Minutes, EVERY 6 HOURS PRN, Nausea, Starting on Thu04/26/25 at 0727, Administer via antecubital vein or higher. thiamine 100 mg oral tablet (1 source) Start: 04-21-2024 take 100 mg by mouth twice daily Thiamine Hcl (Vitamin B1) Active 100 MG PO Twice daily 60 April 21, 2024 12:00am traZODone hydrochloride 50 mg oral tablet (1 source) Serotonin Reuptake Inhibitor Start: 04-22-2024 take 50 mg by mouth once daily at bedtime Trazodone Active 50 MG PO Daily at bedtime 15 April 22, 2024 12:00am (8 sources) Start: 11-12-2024 [Order 1 Start] Name: sodium phosphate 20 mmol in sodium chloride 0.9 % 250 mL IVPB Signed Summary: 20 mmol, intravenous, at 42.8 mL/hr, Administer over 6 Hours, As needed, for phosphorus level 2.3 mg/dL or less, Starting on 11/12/24 at 0926, Administer over 6 hours via dedicated line (peripheral line). If administered, recheck phosphorus level 4 hours after infusion complete. [Order 1 End] [Order 2 Start] Name: sodium phosphate 20 mmol in sodium chloride 0.9 % 100 mL IVPB Signed Summary: 20 mmol, intravenous, at 26.7 mL/hr, Administer over 4 Hours, As needed, for phosphorus level 2.3 mg/dL or less., Starting on 11/12/24 at 0926, Administer over 4 hours via dedicated line (central line). If administered, recheck phosphorus level 4 hours after infusion complete. Infuse using central line access. [Order 2 End] [Order 3 Start] Name: sod phos di, mono-K phos mono (K-PHOS NEUTRAL) 250 mg tablet 2 tablet Signed Summary: 2 tablet, oral, As needed, for phosphorus level 2.3 mg/dL or less. Do not administer if potassium is more than 4.5, Starting on 11/12/24 at 0926, If dose administered, recheck phosphorus level 4 hours after last dose. Look-alike/sound-a like medication - verify indication for use. Give with a full glass of water. [Order 3 End] Start: 11-12-2024 Start: 11-12-2024 Start: 11-12-2024 [Order 1 Start ] Name: potassium chloride (K-TAB,KLOR-CON) CR tablet 20-60 mEq Signed Summary: 20-60 mEq, oral, As needed, Potassium Supplementation, Starting on 11/12/24 at 0925, Progress to oral potassium replacement when patient tolerating oral intake. If dose administered, recheck potassium level 4 hours after last dose. For potassium level 3.4 to 3.7 mmol/L =20 mEq. For potassium level 3.1 to 3.3 mmol/L =40 mEq. For potassium level 3 mmol/L or less =60 mEq. Do not crush or chew. [Order 1 End] [Order 2 Start] Name: potassium chloride (KAYCIEL) 20 mEq/15 mL solution 20-60 mEq Signed Summary: 20-60 mEq, oral, As needed, Potassium Supplementation, Starting on 11/12/24 at 0925, Progress to oral potassium replacement when patient tolerating oral intake. If dose administered, recheck potassium level 4 hours after last dose. For potassium level 3.4 to 3.7 mmol/L =20 mEq. For potassium level 3.1 to 3.3 mmol/L =40 mEq. For potassium level 3 mmol/L or less =60 mEq. Must dilute before use - Mix in 3-8 ounces of water or juice before administration When administering in feeding tube, flush before and after per policy and monitor potassium levels [Order 2 End] [Order 3 Start] Name: potassium chloride IVPB 10 mEq/100 mL in water (0.1 mEq/mL premix) Signed Summary: 10 mEq, intravenous, at 100 mL/hr, Administer over 60 Minutes, As needed, POTASSIUM REPLACEMENT, Starting on 11/12/24 at 0925, IV if unable to use oral/enteral with the current dosing strategies For potassium level 3.4 to 3.7 mmol/L =20 mEq. For potassium level 3.1 to 3.3 mmol/L =40 mEq. For potassium level 3 mmol/L or less =60 mEq. Use central line when applicable. Recheck potassium level 1 hour after total IVPB infusion complete With each potassium result continue the replacement orders as needed VESICANT (YELLOW) Infuse each 10 mEq over a minimum of 1 hour. [Order 3 End] Start: 11-07-2024 End: 11-12-2024 Start: 11-07-2024 End: 11-07-2024 Start: 11-06-2024 End: 11-07-2024 Start: 11-05-2024 End: 11-05-2024 Completed/Discontinued Medications Medication Drug Class(es) Dates Sig (Normalized) Sig (Original) amLODIPine 5 mg oral tablet (1 source) Dihydropyridine Calcium Channel Daphne Start: 11-09-2024 End: 11-12-2024 capsaicin 0.25 mg/ml topical cream (1 source) Start: 06-20-2025 End: 06-20-2025 apply 1 dose topically once Topical, Once, On Thu06/20/25 at 1230, For 1 dose, Apply to abdomen. Do not apply to wounds, damaged,broken or irritated skin. Do not cover with bandage. Do not use in combination with external heat source (eg. heating pad) cariprazine 1.5 mg oral capsule (2 sources) Atypical Antipsychotic End: 11-05-2024 take 1 capsule by mouth in the m orning cariprazine (VRAYLAR) 1.5 mg capsule Take 1 capsule (1.5 mg total) by mouth in the morning. Active cefTRIAXone 2000 mg injection (2 sources) Cephalosporin Antibacterial Start: 11-05-2024 End: 11-07-2024 take 2000 mg intravenously every twenty-four hours cyclobenzaprine hydrochloride 10 mg oral tablet (8 sources) Muscle Relaxant Start: 01-06-2024 End: 11-12-2024 1 ml dexamethasone phosphate 10 mg/ml injection (1 source) Corticosteroid Start: 11-05-2024 End: 11-07-2024 take 10 mg intravenously every six hours 100 ml dexmedetomidine 0.004 mg/ml injection (1 source) Central alpha-2 Adrenergic Agonist Start: 11-05-2024 End: 11-07-2024 diphenhydrAMINE (2 sources) Histamine-1 Receptor Antagonist Start: 11-11-2024 End: 11-11-2024 Start: 11-11-2024 take 25 mg by mouth every six hours as needed 2 ml droperidol 2.5 mg/ml injection (1 source) Dopamine-2 Receptor Antagonist Start: 04-25-2025 End: 04-25-2025 2.5 mg, IntraVENous, ONCE, 1 dose, On Thu04/25/25 at 1230 Start: 04-25-2025 End: 04-25-2025 2.5 mg, IntraVENous, ONCE, 1 dose, On Thu04/25/25 at 1230 0.4 ml enoxaparin sodium 100 mg/ml prefilled syringe (1 source) Low Molecular Weight Heparin Start: 04-25-2025 inject 40 mg by subcutaneous injection once daily 40 mg, SubCUTAneous, DAILY, First dose on Thu04/25/25 at 1700, Until Discontinued, Indication of Use: Prophylaxis-DVT/PE, Administer by deep subCUTAneous injection with pt lying down. Alternate injection sites on abdominal wall. Do not rub site after injection. Check with provider prior to any invasive procedure. 2 ml famotidine 10 mg/ml injection (1 source) Histamine-2 Receptor Antagonist Start: 11-05-2024 End: 11-07-2024 1 ml fentaNYL 0.05 mg/ml injection (2 sources) Opioid Agonist Start: 11-05-2024 End: 11-09-2024 take 25 ug intravenously every hour as needed hydrOXYzine hydrochloride 25 mg oral tablet (13 sources) Antihistamine Start: 11-03-2024 End: 11-12-2024 take 25 mg by mouth every eight hours as needed Start: 04-21-2024 take 50 mg by mouth every six hours Hydroxyzine Pamoate Active 50 MG PO Q6H 30 April 21, 2024 12:00am Start: 09-09-2023 End: 11-05-2024 ibuprofen 800 mg oral tablet (8 sources) Nonsteroidal Anti-inflammatory Drug Start: 01-06-2024 End: 11-05-2024 take 800 mg by mouth every eight hours as needed for pain iopamidol (ISOVUE-370) 76 % injection 75 mL (1 source) Start: 04-25-2025 End: 04-25-2025 take 1 dose intravenously once 75 mL, IntraVENous, IMG ONCE PRN, 1 dose, Starting on Thu04/25/25 at 1313, Until Thu04/25/25 at 1314, Other lamoTRIgine 100 mg oral tablet (4 sources) Mood Stabilizer, Anti-epileptic Agent Start: 09-14-2024 End: 11-12-2024 Start: 09-14-2024 lamoTRIgine (L aMICtal) 100 mg tablet Take 100 mg in the morning and 50 mg at night for 2 weeks, after that start taking 100 mg once in the morning and once at night and continue on that dose 60 tablet 2 09/14/2024 Active Start: 06-23-2024 lamoTRIgine (L aMICtal) 100 mg tablet Take 110 mg by mouth. 06/23/2024 Active Start: 04-21-2024 take 25 mg by mouth once daily Lamotrigine Active 25 MG PO Daily April 21, 2024 12:00am levETIRAcetam 750 mg oral tablet (20 sources) Start: 04-25-2025 take 750 mg by mouth twice daily 750 mg, Oral, 2 TIMES DAILY, First dose on Thu04/25/25 at 2100, Until Discontinued, Do not crush or chew. Start: 03-15-2025 take 3 tablets by mo uth in the morning, then take 3 tablets by mouth at bedtime levETIRAcetam (KEPPRA) 500 mg tablet Indications: Seizure disorder (CMS-HCC) Take 3 tablets (1,500 mg total) by mouth in the morning and 3 tablets (1,500 mg total) before bedtime. 540 tablet 1 03/15/2025 Active Start: 12-21-2024 End: 03-15-2025 take 2 tablets by mouth in the morning, then take 2 tablets by mouth at bedtime levETIRAcetam (KEPPRA) 500 mg tablet Indications: Seizure disorder (CMS-HCC) Take 2 tablets (1,000 mg total) by mouth in the morning and 2 tablets (1,000 mg total) before bedtime. 360 tablet 1 12/21/2024 03/15/2025 Discontinued (Reorder) Start: 11-12-2024 End: 12-21-2024 take 1 tablet by mouth in the morning, then take 1 tablet by mouth at bedtime levETIRAcetam (KEPPRA) 500 mg tablet Take 1 tablet (500 mg total) by mouth in the morning and 1 tablet (500 mg total) before bedtime. 12/10/2024 12/21/2024 Discontinued (Reorder) Start: 11-07-2024 End: 12-12-2024 Start: 11-05-2024 End: 11-07-2024 take 1000 mg intravenously every twelve hours Start: 09-14-2024 End: 11-05-2024 lidocaine 0.05 mg/mg medicat ed patch (8 sources) Antiarrhythmic, Amide Local Anesthetic Start: 01-06-2024 End: 11-05-2024 methylPREDNISolone (7 sources) Corticosteroid Start: 11-03-2024 End: 11-12-2024 Start: 01-06-2024 End: 07-12-2024 methylPREDNISolone (MEDROL, PENELOPE,) 4 mg tablet follow package directions 21 tablet 01/06/2024 07/12/2024 Discontinued (Therapy completed) Start: 01-06-2024 methylPREDNISo lone (MEDROL, PENELOPE,) 4 mg tablet follow package directions 21 tablet 01/06/2024 Active Start: 01-06-2024 methylPREDNISo lone (MEDROL, PENELOPE,) 4 mg tablet follow package directions 21 tablet 0 01/06/2024 Active metroNIDAZOLE 500 mg oral tablet (1 source) Nitroimidazole Antimicrobial Start: 11-05-2024 End: 11-07-2024 oseltamivir 30 mg oral capsule (6 sources) Neuraminidase Inhibitor Start: 11-12-2024 End: 11-16-2024 take 1 capsule by mouth in the morning, then take 1 capsule by mouth at bedtime oseltamivir (TAMIFLU) 30 mg capsule Take 1 capsule (30 mg total) by mouth in the morning and 1 capsule (30 mg total) before bedtime. Do all this for 4 days. 8 capsule 11/12/2024 11/16/2024 Start: 11-12-2024 End: 11-17-2024 Start: 11-11-2024 End: 11-11-2024 PARoxetine hydrochloride 20 mg oral tablet (20 sources) Serotonin Reuptake Inhibitor Start: 04-26-2025 take 40 mg by mouth once daily in the morning 40 mg, Oral, EVERY MORNING, First dose on Thu04/26/25 at 0900, Until Discontinued Start: 12-10-2024 take 1 tablet by ken once daily in the morning PARoxetine (PAXIL) 40 mg tablet Take 1 tablet (40 mg total) by mouth every morning. 12/10/2024 Active Start: 11-13-2024 End: 12-13-2024 take 1 tablet by mouth in the morning PARoxetine (PAXIL) 10 mg tablet Take 1 tablet (10 mg total) by mouth in the morning for 30 days. 30 tablet 11/13/2024 12/13/2024 Active Start: 11-05-2024 End: 11-08-2024 Start: 10-11-2024 End: 12-13-2024 Start: 10-27-2023 End: 11-12-2024 take 1 tablet by mouth in the [...] morning. 30 tablet 2 09/09/2023 10/08/2023 Discontinued potassium bicarbonate 20 meq effervescent oral tablet (1 source) Start: 04-25-2025 End: 04-25-2025 take 3-4 tablets by mouth once 40 mEq, Oral, ONCE, 1 dose, On Thu04/25/25 at 1300, Do not chew or crush. Dissolve flavored tablets completely in 3 to 4 ounces of cold water; unflavored tablets may be dissolved in 3 to 4 ounces of cold juice. Patient to sip slowly over a 5 to 10 minute period. May further dilute if GI adverse effects occur. prochlorperazine 5 mg/ml injectable solution (3 sources) Phenothiazine Start: 05-13-2025 End: 05-13-2025 10 mg, IntraVENous, ONCE, 1 dose, On 05/13/25 at 1615, If administering IV push, administer at a maximum rate of 5 mg/minute. Patients should remain lying down following administration and be reassessed for relief of nausea and presence of hypotension. Patients should be assisted the first time they get up after administration. Start: 05-13-2025 take 1 tablet by ken th every six hours as needed for nausea and vomiting prochlorperazine (COMPAZINE) 10 MG tablet Take 1 tablet by mouth every 6 hours as needed (Nausea and Vomiting) 12 tablet 05/13/2025 Active 50 ml sodium chloride 9 mg/m l injection (10 sources) Start: 06-20-2025 End: 06-20-2025 1,000 mL (11 mL/kg), IntraVE Nous, at 495.9 mL/hr, Administer over 121 Minutes, ONCE, On Thu06/20/25 at 1230, For 1 dose Start: 05-13-2025 End: 05-13-2025 1,000 mL, IntraVENous, at 1, 000 mL/hr, Administer over 1 Hours, ONCE, On Thu05/13/25 at 1615, For 1 dose, May administer over 30 minutes if well tolerated. Start: 04-25-2025 5-40 mL, Intra VENous, EVERY 12 HOURS SCHEDULED (2 times per day), First dose on Thu04/25/25 at 2100, Until Discontinued, For Line Patency: Peripheral IV = 5 mL; Midline or Central Line = 10 mL/lumen. If following IV push medication, administer flush at same rate as the IV push. Flush volume is determined by type of infusion therapy being given. For non-viscous solutions use: Peripheral IV = 5 mL Midline or Central Line = 10 mL/lumen For viscous solutions (i.e. blood components, parenteral nutrition, contrast media, or after obtaining blood sample) use: Peripheral IV = 10 mL Midline or Central Line = 20 mL/lumen Start: 04-25-2025 Start: 04-25-2025 End: 04-26-2025 IntraVENous, at 75 mL/hr, CO NTINUOUS, Starting on Thu04/25/25 at 1700, For 24 hours, Complete last bag that is running at 24 hours and then saline lock IV Start: 11-05-2024 End: 11-06-2024 tiZANidine 4 mg oral tablet (6 sources) Central alpha-2 Adrenergic Agonist Start: 01-07-2024 End: 07-12-2024 tiZANidine (ZANAFLEX) 4 mg tablet Indications: Seizure (CMS-HCC) , Muscle cramp Use 1 tab each night scheduled. If still having muscle cramps spasm can have 1 tab in day as needed. 60 tablet 01/07/2024 07/12/2024 Discontinued (Discontinued by another clinician) venlafaxine 37.5 mg oral tablet (20 sources) Serotonin and Norepinephrine Reuptake Inhibitor Start: 04-25-2025 take 37.5 mg by mouth once daily 37.5 mg, Oral, DAILY, First dose on Thu04/25/25 at 1700, Until Discontinued Start: 11-21-2024 take 1 capsule by [facility] every twenty-four hours in the morning venlafaxine XR (EFFEXOR XR) 37.5 mg 24 hr capsule Take 1 capsule (37.5 mg total) by mouth in the morning. 11/21/2024 Active Start: 11-05-2024 End: 11-08-2024 Start: 09-05-2024 take 1 tablet by [facility] once daily at breakfast venlafaxine 75 MG tablet extended release 24hr 24 hr tablet Take 1 tablet (75 mg total) by mouth daily with breakfast. 09/05/2024 Active Start: 04-21-2024 take 75 mg by mouth once daily Venlafaxine Active 75 MG PO Daily April 21, 2024 12:00am Start: 03-22-2024 End: 11-05-2024 take 37.5 mg by mouth once daily Venlafaxine Discontin ued 37.5 MG PO Daily April 17, 2024 12:00am April 22, 2024 8:12am Start: 03-22-2024 take 1 capsule by [facility] every twenty-four hours in the morning venlafaxine XR (EFFEXOR XR) 37.5 mg 24 hr capsule Indications: Anxiety Take 1 capsule (37.5 mg total) by mouth in the morning. 90 capsule 03/22/2024 Active Start: 11-24-2023 End: 03-20-2024 take 1 capsule by mouth every twenty-four hours in the morning venlafaxine XR (EFFEXOR XR) 37.5 mg 24 hr capsule Indications: Anxiety Take 1 capsule (37.5 mg total) by mouth in the morning. 90 capsule 11/24/2023 02/08/2024 Discontinued (Reorder) Problems Active Problems Problem Classification Problem Date Documented Da te Episodic/Chronic Abdominal pain (2 sources) Unspecified abdominal pain; Translations: [Abdominal pain] Onset: 10-01-2022 Episodic Acute and unspecified renal failure (20 sources) Acute renal failure syndrome; Translations: [Acute kidney failure, unspecified] Onset: 11-05-2024 11-12-2024 Episodic Anxiety disorders (20 sources) Anxiety; Translations: [Anxiety disorder, unspecified] Onset: 02-06-2023 04-18-2024 Chronic Blindness and vision defects (20 sources) Visual impairment; Translations: [Unspecified visual loss] Onset: 02-06-2023 02-06-2023 Chronic Epilepsy; convulsions (20 sources) Seizure disorder; Translations: [Epilepsy, unspecified, not intractable, without status epilepticus] Onset: 01-11-2024 09-20-2024 Chronic Epilepsy; convulsions (20 sources) Neurological finding; Translations: [Unspecified convulsions] Onset: 09-12-2024 Resolved: 11-22-2024 09-12-2024 Episodic Esophageal disorders (20 sources) Gastro-esophageal reflux disease without esophagitis; Translations: [Gastroesophageal reflux disease] Onset: 10-01-2022 02-06-2023 Chronic Fluid and electrolyte disorders (8 sources) Other disorders of electrolyte and fluid balance, not elsewhere classified; Translations: [Hypokalemia] Onset: 11-05-2024 04-25-2025 Episodic Influenza (3 sources) Influenza due to Influenza A virus subtype H1N1; Translations: [Influenza due to other identified influenza virus with other respiratory manifestations] Onset: 11-05-2024 11-12-2024 Episodic Mood disorders (20 sources) Depressive disorder; Translations: [Depression] Onset: 02-06-2023 04-18-2024 Chronic Nausea and vomiting (19 sources) Nausea with vomiting, unspecified; Translations: [Nausea and vomiting] Onset: 09-25-2022 Episodic Other aftercare (1 source) Post-discharge follow-up; Translations: [Encounter for follow-up examination after completed treatment for conditions other than malignant neoplasm] 05-07-2025 Episodic Other connective tissue disease (2 sources) Non-traumatic rhabdomyolysis; Translations: [Rhabdomyolysis] 11-12-2024 Episodic Other connective tissue disease (1 source) Rhabdomyolysis; Translations: [Rhabdomyolysis] Onset: 11-05-2024 Episodic Other gastrointestinal disorders (1 source) Diarrhea, unspecified; Translations: [Diarrhea, unspecified] Onset: 02-23-2025 Episodic Other liver diseases (2 sources) Enzyme level - finding; Translations: [Transaminitis] 11-12-2024 Episodic Other and delivery including normal (2 sources) test positive; Translations: [Encounter for test, result positive] Onset: 06-20-2025 06-20-2025 Episodic Screening and history of mental health and substance abuse codes (1 source) Personal history of nicotine dependence; Translations: [PERSONAL HISTORY OF NICOTINE DEPEND] Onset: 10-01-2022 Episodic Spondylosis; intervertebral disc disorders; other back problems (2 sources) Lumbago with sciatica, left side; Translations: [Lumbago with sciatica, left side] Onset: 01-06-2024 Episodic Substance-related disorders (3 sources) Cannabis hyperemesis syndrome co-occurrent and due to cannabis abuse; Translations: [Cannabis abuse with other cannabis-induced disorder] Onset: 06-20-2025 05-13-2025 Chronic Substance-related disorders (2 sources) Cannabis use, unspecified, uncomplicated; Translations: [CANNABIS USE UNS UNCOMPLICATED] Onset: 10-01-2022 Episodic Unclassified (1 source) Elevation of levels of liver transaminase levels; Translations: [Elevation of levels of liver transaminase levels] Onset: 11-05-2024 Unclassified (1 source) Drug rash with eosinophilia and systemic symptoms syndrome; Translations: [Drug rash with eosinophilia and systemic symptoms syndrome] Onset: 11-04-2024 Unclassified (1 source) ill Onset: 11-04-2024 Unclassified (1 source) inquiry of how far along in Onset: 06-19-2025 Past or Other Problems Problem Classification Problem Date Documented Da te Episodic/Chronic Allergic reactions (20 sources) Eczema; Translations: [Dermatitis, unspecified] Onset: 02-06-2023 02-06-2023 Episodic Cardiac dysrhythmias (2 sources) Tachycardia, unspecified; Translations: [Tachycardia, unspecified] Onset: 09-12-2024 Episodic E Codes: Adverse effects of medical drugs (1 source) Adverse effect of unspecified drugs, medicaments and biological substances, initial encounter; Translations: [Adverse effect of unspecified drugs, medicaments and biological substances, initial encounter] Onset: 11-04-2024 Episodic Gastrointestinal hemorrhage (1 source) Hematemesis; Translations: [Hematemesis] Onset: 11-04-2024 Episodic Mood disorders (20 sources) Mood disorders; Translations: [Depression, unspecified] Onset: 09-12-2024 Resolved: 05-05-2025 09-12-2024 Noninfectious gastroenteritis (1 source) Noninfective gastroenteritis and colitis, unspecified; Translations: [Noninfective gastroenteritis and colitis, unspecified] Onset: 11-04-2024 Episodic Other connective tissue disease (1 source) Cramp; Translations: [Cramp and spasm] 01-07-2024 Episodic Septicemia (except in labor) (2 sources) Sepsis; Translations: [Sepsis, unspecified organism] Onset: 11-04-2024 Episodic Unclassified (13 sources) Onset: 07-13-2024 Resolved: 07-13-2024 07-13-2024 Results Test Name Value Interpretation Reference Range Facility ED Clinical Summaryon 2024 ED Clinical Summary [address] [address] ED Clinical Summary Person Information Name: Yolanda Villanueva [facility] Age: 25 Years : 2000 Sex: Female PCP: Marital Status: Phone: Race: Ethnicity: Language: Senegalese Visit Reason: Hematuria; vomiting blood Acuity: 3 Enc Type: Emergency Med Service: Emergency Medicine Arrival: 06/22/2025 01:31:26 Discharge: 06/22/2025 01:41:00 LOS: 000 00:10 Checkin: 06/22/2025 01:31:26 Checkout: 06/22/2025 01:41:00 Dispo Type: Left Without Being Seen Address: Provider Notes: Diagnosis: Problems No Problems Documented Smoking Status: Smoking Status No Smoking Status Documented Functional Status: Sensory Deficits: History of Falls: Mobility Assistance Prior to Admission: ADLs: Current Level of Assistance for Self-Care/Mobility: Cognitive Status: Allergies No Allergies Documented Laboratory or Other Results This Visit (last charted value for your 06/22/2025 visit) No Laboratory or Other Results This Visit Measurements: Height: Weight: 88.9 kg Blood Pressure: /119 mmHg BMI: Procedures No Procedures Documented Immunizations No Immunizations Documented This Visit Final Med List: No Medications Documented Care Team Members: Attending Physician: Consulting Physician: Referring Physician: Follow up: Discharge Orders: Patient Education Information: [facility] Poison Help line: . [facility] Hotline: [place] Tobacco Quit Line: [facility] ([place], [place]) [address]: [phone] [facility] ([place], [place]) [address]: [phone] [facility] [address] [place], [place]: [phone] [facility] CBC with Auto Differentialon 06-20-2025 Basophils (Bld) [#/Vol] 0.07 10*3/uL [facility] Basophils/100 WBC (Bld) 0 % 0 - 2 % [facility] Eosinophils (Bld) [#/Vol] [facility] Eosinophils/100 WBC (Bld) 0 % Low 1 - 4 % [facility] Erythrocyte distribution width (RBC) [Ratio] 13.2 % 11.8 - 14.4 % [facility] Hematocrit (Bld) [Volume fraction] 36.3 % 36.3 - 47.1 % [facility] Hemoglobin (Bld) [Mass/Vol] 12.4 g/dL 11.9 - 15.1 g/dL [facility] Immature granulocytes (Bld) [#/Vol] 0.13 10*3/uL [facility] Immature granulocytes/100 WBC (Bld) 1 % High 0 [facility] Interpretation and review of laboratory results Abnormal [facility] Lymphocytes/100 WBC (Bld) 9 % Low 24 - 43 % [facility] Lymphocytes/100 WBC (Bld) 1.61 % [facility] MCH (RBC) [Entitic mass] 30.4 pg 25.2 - 33.5 pg [facility] MCHC (RBC) [Mass/Vol] 34.2 g/dL 28.4 - 34.8 g/dL [facility] MCV (RBC) [Entitic vol] 89.0 fL 82.6 - 102.9 fL [facility] Monocytes/100 WBC (Bld) 3 % 3 - 12 % [facility] Monocytes/100 WBC (Bld) 0.59 % [facility] Neutrophils/100 WBC (Bld) 87 % High 36 - 65 % [facility] Nucleated RBC/100 WBC (Bld) [Ratio] 0.0 % 0.0 per 100 WBC [facility] Platelet mean volume (Bld) [Entitic vol] 9.6 fL 8.1 - 13.5 fL [facility] Platelets (Bld) [#/Vol] 431 10*3/uL [facility] RBC (Bld) [#/Vol] 4.08 10*6/uL 3.95 - 5.1 1 m/uL [facility] Segmented neutrophils/100 WBC (Bld) 15.72 % High [facility] WBC other (Bld) [#/Vol] 18.1 High [facility] CBC with Diffon 06-20-2025 Abs. Basophil 0.07 k/uL Normal 0.00-0.20 [facility] Comment on above: Performed By: #### C DP, CP #### [facility] [address] [place] [address] Dr. Gallardo, [facility]83 [employer] Feeder: Christian Hanley MD Abs. Eosinophil <0.03 Normal 0.00-0.44 [facility] Comment on above: Performed By: #### C DP, CP #### [facility] [address] [place], [facility]83 [employer] Feeder: Christian Hanley MD Abs.Imm.Granulocyte 0.13 k/uL Normal 0.00-0.30 [facility] Comment on above: Performed By: #### C DP, CP #### [facility] [address] [place] [address] Dr. [place] [id number] [employer] Feeder: Christian Hanley MD Abs.Neutrophil (Seg) 15.72 k/uL High 1.50-8.10 [facility] Comment on above: Performed By: #### C DP, CP #### [facility] [address] [place] [address] Dr. Gallardo, [place] [id number] [employer]: Christian Hanley MD Basophils/100 WBC (Bld) 0 % Normal 0-2 [facility] Comment on above: Performed By: #### C DP, CP #### [facility] [address] [place] [address] Dr. Gallardo, [facility]83 [employer] Feeder: Christian Hanley MD Eosinophils/100 WBC (Bld) 0 % Low 1-4 [facility] Comment on above: Performed By: #### C DP, CP #### [address] Gallardo, [facility]83 [employer] Feeder: Christian Hanley MD Erythrocyte distribution width (RBC) [Ratio] 13.2 % Normal 11.8-14.4 [facility] Comment on above: Performed By: #### C DP, CP #### [address] Gallardo, [facility]83 [employer] Feeder: Christian Hanley MD Hematocrit (Bld) [Volume fraction] 36.3 % Normal 36.3-47.1 [facility] Comment on above: Performed By: #### C DP, CP #### [address] Gallardo, [facility]83 [employer] Feeder: Christian Hanley MD Hemoglobin (Bld) [Mass/Vol] 12.4 g/dL Normal 11.9-15.1 [facility] Comment on above: Performed By: #### C DP, CP #### [address] [place], [place] [id number] [employer]: Christian Hanley MD Immature granulocytes/100 WBC (Bld) 1 % High 0 [facility] Comment on above: Performed By: #### C DP, CP #### [facility] [address] [place], [place] [address] [employer]: Christian Hanley MD Lymphocytes (Bld) [#/Vol] 1.61 10*3/uL Normal 1.10-3.70 [facility] Comment on above: Performed By: #### C DP, CP #### [facility] [address] [place], [place] [address] [employer]eder: Christian Hanley MD Lymphocytes/100 WBC (Bld) 9 % Low 24-43 [facility] Comment on above: Performed By: #### C DP, CP #### [address] [place]ardo, [place] [address] [employer]eder: Christian Hanley MD MCH (RBC) [Entitic mass] 30.4 pg Normal 25.2-33.5 [facility] Comment on above: Performed By: #### C DP, CP #### [address] [place], [place] [address] [employer]: Christian Hanley MD MCHC (RBC) [Mass/Vol] 34.2 g/dL Normal 28.4-34.8 [facility] Comment on above: Performed By: #### C DP, CP #### [address] [place], [place] [address] [employer]: Christian Hanley MD MCV (RBC) [Entitic vol] 89.0 fL Normal 82.6-102.9 [facility] Comment on above: Performed By: #### C DP, CP #### [address] Gallardo, [facility]83 [employer] Feeder: Christian Hanley MD Monocytes (Bld) [#/Vol] 0.59 10*3/uL Normal 0.10-1.20 [facility] Comment on above: Performed By: #### C DP, CP #### [facility] [address] [place], [place] [id number] [employer]: Christian Hanley MD Monocytes/100 WBC (Bld) 3 % Normal 3-12 [facility] Comment on above: Performed By: #### C DP, CP #### [facility] [address] [place], [place] [id number] [employer]: Christian Hanley MD Neutrophil (Seg) 87 % High 36-65 [facility] Comment on above: Performed By: #### C DP, CP #### [facility] [address] [place], [facility]83 [employer] Feeder: Christian Hanley MD NRBC Automated 0.0 per 100 WBC Normal 0.0 [facility] Comment on above: Performed By: #### C DP, CP #### [address] Gallardo, [facility]83 [employer] Feeder: Christian Hanley MD Platelet mean volume (Bld) [Entitic vol] 9.6 fL Normal 8.1-13.5 [facility] Comment on above: Performed By: #### C DP, CP #### [address] [place], [place] [id number] [employer]: Christian Hanley MD Platelets (Bld) [#/Vol] 431 10*3/uL Normal 138-453 [facility] Comment on above: Performed By: #### C DP, CP #### [facility] [address] [place], [place] [id number] [employer]eder: Christian Hanley MD RBC (Bld) [#/Vol] 4.08 10*6/uL Normal 3.95-5.11 [facility] Comment on above: Performed By: #### C DP, CP #### [address] [place], [place] [id number] [employer]: Christian Hanley MD WBC (Bld) [#/Vol] 18.1 10*3/uL High 3.5-11.3 [facility] Comment on above: Performed By: #### C DP, CP #### [facility] [address] [place], [place] [id number] [employer]: Christian Hanley MD Comp Metabolic Profon 2024 Albumin [Mass/Vol] 4.9 g/dL Normal 3.5-5.2 [facility] Comment on above: Performed By: #### C DP, CP #### [facility] [address] [place], [place] [id number] [employer]: Christian Hanley MD Albumin/Glob Ratio 1.4 Normal 1.0-2.5 [facility] Comment on above: Performed By: #### C DP, CP #### [facility] [address] [place] [address] [place] [address] [employer]eder: Christian Hanley MD Alkaline Phos 83 U/L Normal 35-104 [facility] Comment on above: Performed By: #### C DP, CP #### [address] [place] [address] [employer]: Christian Hanley MD ALT [Catalytic activity/Vol] 16 U/L Normal 10-35 [facility] Comment on above: Performed By: #### C DP, CP #### [facility] [address] [place] [address] [employer]: Christian Hanley MD Anion gap [Moles/Vol] 18 mmol/L High 9-16 [facility] Comment on above: Performed By: #### C DP, CP #### [facility] [address] [place] [address] Dr. [place]ardo, [place] [id number] [employer]: Christian Hanley MD AST [Catalytic activity/Vol] 22 U/L Normal 10-35 [facility] Comment on above: Performed By: #### C DP, CP #### [facility] [address] [place], [place] [id number] [employer] Feeder: Christian Hanley MD Bilirubin [Mass/Vol] 0.5 mg/dL Normal 0.00-1.20 [facility] Comment on above: Performed By: #### C DP, CP #### [facility] [address] [place], [place] [id number] [employer]eder: Christian Hanley MD BUN/CRE Ratio 8 Low 9-20 [facility] Comment on above: Performed By: #### C DP, CP #### [facility] [address] [place] [address] Dr. [place]ardo, [place] [id number] [employer]: Christian Hanley MD Calcium [Mass/Vol] 9.7 mg/dL Normal 8.6-10.4 [facility] Comment on above: Performed By: #### C DP, CP #### [facility] [address] [place] [address] Dr. [place]ardo, [place] [id number] [employer]: Christian Hanley MD Chloride [Moles/Vol] 101 mmol/L Normal 98-107 [facility] Comment on above: Performed By: #### C DP, CP #### [facility] [address] [place] [address] Dr. [place]ardo, [place] [id number] [employer]eder: Christian Hanley MD CO2 [Moles/Vol] 21 mmol/L Normal 20-31 [facility] Comment on above: Performed By: #### C DP, CP #### [facility] [address] [place], [place] [id number] [employer] Feeder: Christian Hanley MD Creatinine [Mass/Vol] 0.9 mg/dL Normal 0.50-0.90 [facility] Comment on above: Performed By: #### C DP, CP #### [facility] [address] [place], [place] [id number] [employer] Fe[employer]: Christian Hanley MD GFR/1.73 sq M.predicted among non-blacks MDRD (S/P/Bld) [Vol rate/Area] mL/min/{1.73_m2} Normal >60 [facility] Comment on above: Result Comment: These results are not intended for use in patients <18 years of age. eGFR results are calculated without a race factor using the 2020 CKD-EPI equation. Careful clinical correlation is recommended, particularly when comparing to results calculated using previous equations. The CKD-EPI equation is less accurate in patients with extremes of muscle mass, extra-renal metabolism of creatine, excessive creatine ingestion, or following therapy that affects renal tubular secretion. Performed By: #### C DP, CP #### [facility] [address] [place] [address] [place] [address] [employer] Feeder: Christian Hanley MD Glucose [Mass/Vol] 152 mg/dL High 74-99 [facility] Comment on above: Performed By: #### C DP, CP #### [address] [place] [address] [employer]eder: Christian Hanley MD Potassium [Moles/Vol] 3.8 mmol/L Normal 3.7-5.3 [facility] Comment on above: Result Comment: Spec imen hemolysis has exceeded the interference as defined by Macy. Value may be falsely increased. Suggest recollection if clinically indicated. Performed By: #### C DP, CP #### [facility] [address] [place] [address] [place] [address] [employer]: Christian Hanley MD Protein [Mass/Vol] 8.4 g/dL Normal 6.6-8.7 [facility] Comment on above: Performed By: #### C DP, CP #### [address] [place] [address] [employer]eder: Christian Hanley MD Sodium [Moles/Vol] 140 mmol/L Normal 136-145 [facility] Comment on above: Performed By: #### C DP, CP #### [address] [place], [place] [id number] [employer]eder: Christian Hanley MD Urea nitrogen [Mass/Vol] 7 mg/dL Normal 6-20 [facility] Comment on above: Performed By: #### C DP, CP #### [facility] [address] [place] [address] [employer] Feeder: Christian Hanley MD Comprehensive Metabolic Pane [facility] 06-20-2025 Albumin [Mass/Vol] 4.9 g/dL 3.5 - 5.2 g/dL [facility] Albumin/Globulin [Mass ratio] 1.4 {ratio} 1.0 - 2.5 [facility] ALP [Catalytic activity/Vol] 83 U/L 35 - 104 U/L [facility] ALT [Catalytic activity/Vol] 16 U/L 10 - 35 U/L [facility] Anion gap [Moles/Vol] 18 mmol/L High 9 - 16 mmol/L [facility] AST [Catalytic activity/Vol] 22 U/L 10 - 35 U/L [facility] Bilirubin [Mass/Vol] 0.5 mg/dL 0.00 - 1.20 mg/dL [facility] Calcium [Mass/Vol] 9.7 mg/dL 8.6 - 10. 4 mg/dL [facility] Chloride [Moles/Vol] 101 mmol/L 98 - 10 7 mmol/L [facility] CO2 [Moles/Vol] 21 mmol/L 20 - 31 mmol/L [facility] Creatinine [Mass/Vol] 0.9 mg/dL 0.50 - 0.90 mg/dL [facility] Est, Glom Filt Rate - PINF [facility] Comment on above: These results are not intended for use in patients <18 years of age. eGFR results are calculated without a race factor using the 202 CKD-EPI equation. Careful clinical correlation is recommended, particularly when comparing to results calculated using previous equations. The CKD-EPI equation is less accurate in patients with extremes of muscle mass, extra-renal metabolism of creatine, excessive creatine ingestion, or following therapy that affects renal tubular secretion. Glucose [Mass/Vol] 152 mg/dL High 74 - 99 mg/dL [facility] Interpretation and review of laboratory results Abnormal [facility] Potassium [Moles/Vol] 3.8 mmol/L 3.7 - 5.3 mmol/L [facility] Comment on above: Specimen hemolysis h as exceeded the interference as defined by Macy. Value may be falsely increased. Suggest recollection if clinically indicated. Protein [Mass/Vol] 8.4 g/dL 6.6 - 8.7 g/dL [facility] Sodium [Moles/Vol] 140 mmol/L 136 - 145 mmol/L [facility] Urea nitrogen [Mass/Vol] 7 mg/dL 6 - 20 mg/dL [facility] Urea nitrogen/Creatinine [Mass ratio] 8 mg/mg Low 9 - 20 [facility] Drug Scr, Abuse, Uron 2024 Cannabinoid(s),Ur Positive Abnormal NEG [facility] Comment on above: Result Comment: Cuto ff: 50 ng/ml Performed By: #### D AU #### [facility] [address] [place] [address] [place] [address] [employer]eder: Christian Hanley MD Amphetamine(s),Ur Negative Normal NEG [facility] Comment on above: Result Comment: Cuto ff: 1000 ng/mL Performed By: #### D AU #### [facility] [address] [place] [address] [place] [address] [employer] Feeder: Christian Hanley MD Barbiturate(s),Ur Negative Normal NEG [facility] Comment on above: Result Comment: Cuto ff: 200 ng/ml Performed By: #### D AU #### [facility] [address] [place] [address] [place] [address] [employer] Feeder: Christian Hanley MD Benzodiazepine(s) Negative Normal NEG [facility] Comment on above: Result Comment: Cuto ff: 200 ng/ml Performed By: #### D AU #### [facility] [address] [place] [address] [place] [address] [employer] Feeder: Christian Hanley MD Cocaine Metabolite Negative Normal NEG [facility] Comment on above: Result Comment: Cuto ff: 300 ng/ml Performed By: #### D AU #### [facility] [address] [place] [address] Dr. [place]ardo, [place] [id number] [employer] Feeder: Christian Hanley MD Fentanyl, Urine Negative Normal NEG [facility] Comment on above: Result Comment: Cuto ff: 5 ng/ml Performed By: #### D AU #### [facility] [address] [place] [address] Dr. [place], [place] [id number] [employer] Feeder: Christian Hanley MD Interpretive Info This method is a screening test to detect only these drug classes as part of a Normal [facility] Comment on above: Result Comment: medi marina workup. Confirmatory testing by another method should be ordered if clinically indicated. Performed By: #### D AU #### [address] [place], [place] [id number] Lithograph Press Feeder: Christian Hanley MD Methadone Ql (U) Negative Normal NEG [facility] Comment on above: Result Comment: Cuto ff: 300 ng/ml Performed By: #### D AU #### [address] [place], [place] [id number] Lithograph Press Feeder: Christian Hanley MD Opiate(s), Ur Negative Normal NEG [facility] Comment on above: Result Comment: Cuto ff: 300 ng/ml Note: The Opiate screen is not intended to detect Oxycodone. Performed By: #### D AU #### [facility] [address] [place] [address] Dr[address] [place], [place] [id number] Lithograph Press Feeder: Christian Hanley MD Oxycodone, Urine Negative Normal NEG [facility] Comment on above: Result Comment: Cuto ff: 100 ng/ml Performed By: #### D AU #### [facility] [address] [place] [address] Dr[address] [place], [place] [id number] Lithograph Press Feeder: Christian Hanley MD Phencyclidine, Ur Negative Normal NEG [facility] Comment on above: Result Comment: Cuto ff: 25 ng/ml Performed By: #### D AU #### [facility] [address] [place] [address] Lithograph Press Feeder: Christian Hanley MD HCG, Quanton 06-20-2025 HCG, Quant 202.0 mIU/mL High 0-7 [facility] Comment on above: Result Comment: Non-preg premeno <=5 Postmeno <=8 Male <=3 If HCG results do not concur with clinical observations, additional testing to confirm results is recommended. Performed By: #### B HCG #### [facility] [address] [place] [address] Lithograph Press Feeder: Christian Hanley MD HCG, Quantitative, on 06-20-2025 HCG.beta subunit Qn 202.0 m[IU]/mL High B [facility] Comment on above: Non-preg premeno <=5 Postmeno <=8 Male <=3 If HCG results do not concur with clinical observations, additional testing to confirm results is recommended. Interpretation and review of laboratory results Abnormal [facility] Lactic Acidon 06-20-2025 Lactate (BldV) [Moles/Vol] 1.6 mmol/L 0.5 - 2.2 mmol/L [facility] Lactate [Moles/Vol] 1.6 mmol/L Normal 0.5-2.2 [facility] Comment on above: Performed By: #### U MICAO, UA #### [facility] [address] [place] [address] Lithograph Press Feeder: Christian Hanley MD No Panel Informationon 06-20 [facility] US OB TRANSVAGINALon 025 US OB TRANSVAGINAL EXAMINATION: FIRST TRIMESTER OBSTETRIC ULTRASOUND 06/20/2025 TECHNIQUE: first trimester obstetric pelvic duplex ultrasound was performed with real-time imaging, color flow Doppler imaging, and spectral analysis. COMPARISON: None HISTORY: ORDERING SYSTEM PROVIDED HISTORY: abd pain, + TECHNOLOGIST PROVIDED HISTORY: abd pain, + FINDINGS: Uterus: 7.5 x 4.3 x 3.1 cm. Gestational Sac(s): 2.0 x 1.9 x 2.0 mm. Yolk Sac: Not definitively identified. Embryo(<11wk) /Fetus(>=11wk): Single Moca Rump Length: Not visualized. Rate of Cardiac Activity not visualized. Right ovary: 4.1 x 3.1 x 2.2 cm. Left ovary: 3.5 x 3.7 x 3.1 cm. Free fluid: No significant free fluid. Measurements: Estimated gestational age by current ultrasound: Too early to determine. Estimated gestational age by LMP/prior ultrasound: Too early to determine. Estimated Due Date: Too early to determine. IMPRESSION: There is a 2 mm intrauterine cystic structure which may represent very early intrauterine gestation. The internal contents including the yolk sac, embryo and cardiac activity are not visualized at this time. Continue follow-up study and correlation with beta HCG level recommended. Interpreted by: Jean Paul Carranza MD Signed by: Jean Paul Carranza MD 06/20/25 Final result [facility] There is a 2 mm intrauterine cystic structure which may represent very early intrauterine gestation. The internal contents including the yolk sac, embryo and cardiac activity are not visualized at this time. Continue follow-up study and correlation with beta HCG level recommended. [facility] CONSOLIDATED EXAMINATION: FIRST TRIMESTER OBSTETRIC ULTRASOUND 06/20/2025 TECHNIQUE: first trimester obstetric pelvic duplex ultrasound was performed with real-time imaging, color flow Doppler imaging, and spectral analysis. COMPARISON: None HISTORY: ORDERING SYSTEM PROVIDED HISTORY: abd pain, + TECHNOLOGIST PROVIDED HISTORY: abd pain, + FINDINGS: Uterus: 7.5 x 4.3 x 3.1 cm. Gestational Sac(s): 2.0 x 1.9 x 2.0 mm. Yolk Sac: Not definitively identified. Embryo(<11wk) /Fetus(>=11wk): Single Moca Rump Length: Not visualized. Rate of Cardiac Activity not visualized. Right ovary: 4.1 x 3.1 x 2.2 cm. Left ovary: 3.5 x 3.7 x 3.1 cm. Free fluid: No significant free fluid. Measurements: Estimated gestational age by current ultrasound: Too early to determine. Estimated gestational age by LMP/prior ultrasound: Too early to determine. Estimated Due Date: Too early to determine. [facility] Jean Paul Guerrero MD - 06/20/2025 EXAMINATION: FIRST TRIMESTER OBSTETRIC ULTRASOUND 06/20/2025 TECHNIQUE: first trimester obstetric pelvic duplex ultrasound was performed with real-time imaging, color flow Doppler imaging, and spectral analysis. COMPARISON: None HISTORY: ORDERING SYSTEM PROVIDED HISTORY: abd pain, + TECHNOLOGIST PROVIDED HISTORY: abd pain, + FINDINGS: Uterus: 7.5 x 4.3 x 3.1 cm. Gestational Sac(s): 2.0 x 1.9 x 2.0 mm. Yolk Sac: Not definitively identified. Embryo(<11wk) /Fetus(>=11wk): Single Moca Rump Length: Not visualized. Rate of Cardiac Activity not visualized. Right ovary: 4.1 x 3.1 x 2.2 cm. Left ovary: 3.5 x 3.7 x 3.1 cm. Free fluid: No significant free fluid. Measurements: Estimated gestational age by current ultrasound: Too early to determine. Estimated gestational age by LMP/prior ultrasound: Too early to determine. Estimated Due Date: Too early to determine. IMPRESSION: There is a 2 mm intrauterine cystic structure which may represent very early intrauterine gestation. The internal contents including the yolk sac, embryo and cardiac activity are not visualized at this time. Continue follow-up study and correlation with beta HCG level recommended. [facility] Radiology Study observation (narrative) [facility] US OB TRANSVAGINALOrdered By : Jean Paul Carranza on 06-20-2025 [facility] Work Phone: Urinalysis w/ Microon 2024 Bacteria TRACE Abnormal NONE [facility] Comment on above: Performed By: #### U AMIC #### [facility] [address] [place] [address] Lithograph Press Feeder: Christian Hanley MD Bilirubin, SemiQt,Ur Negative Normal NEG [facility] Comment on above: Performed By: #### U AMIC #### [facility] [address] [place] [address] [employer]ograph Press Feeder: Christian Hanley MD Blood, Urine Negative Normal NEG [facility] Comment on above: Performed By: #### U AMIC #### [facility] [address] [place], [place] [id number] Lith[employer] Press Feeder: Christian Hanley MD Casts 0 TO 2 Normal [facility] Comment on above: Result Comment: HYAL INE Performed By: #### U AMIC #### [facility] [address] [place], [place] [id number] Lith[employer] Press Feeder: Christian Hanley MD Clarity (U) Clear Normal CLEAR [facility] Comment on above: Performed By: #### U AMIC #### [facility] [address] [place] [address] Dr. [place], [place] [id number] [employer] Press Feeder: Christian Hanley MD Color (U) Yellow Normal YEL [facility] Comment on above: Performed By: #### U AMIC #### [facility] [address] [place] [address] Dr. [place], [place] [id number] [employer] Press Feeder: Christian Hanley MD Epithelial cells LM Ql (Urine sed) 2 TO 5 Normal 0-25 [facility] Comment on above: Performed By: #### U AMIC #### [facility] [address] [place] [address] Dr. [place], [place] [phone] [employer] Press Feeder: Christian Hanley MD Glucose Ql (U) Negative Normal NEG [facility] Comment on above: Performed By: #### U AMIC #### [facility] [address] [place], [place] [id number] Lith[employer] Press Feeder: Christian Hanley MD Ketones Ql (U) 2+ mg/dL Abnormal NEG [facility] Comment on above: Performed By: #### U AMIC #### [facility] [address] [place] [address] Dr. [place], [place] [phone] [employer] Press Feeder: Christian Hanley MD Leukocyte esterase Test strip Ql (U) Negative Normal NEG [facility] Comment on above: Performed By: #### U AMIC #### [facility] [address] [place], [place] [id number] Lith[employer] Press Feeder: Christian Hanley MD Mucus Strands TRACE Abnormal NONE [facility] Comment on above: Performed By: #### U AMIC #### [facility] [address] [place], [place] [id number] Lith[employer] Press Feeder: Christian Hanley MD Nitrite,Ur Negative Normal NEG [facility] Comment on above: Performed By: #### U AMIC #### [facility] [address] [place] [address] [employer] Press Feeder: Christian Hanley MD PH,Ur 8.0 Normal 5.0-9.0 [facility] Comment on above: Performed By: #### U AMIC #### [facility] [address] [place], [facility] Lithograph Press Feeder: Christian Hanley MD Protein Ql (U) 1+ mg/dL Abnormal NEG [facility] Comment on above: Performed By: #### U AMIC #### [facility] [address] [place] [address] [place] [address] Lithograph Press Feeder: Christian Hanley MD Spec. [place],Ur 1.020 Normal 1.010-1.020 [facility] Comment on above: Performed By: #### U AMIC #### [facility] [address] [place], [place] 1775683 Lithograph Press Feeder: Christian Hanley MD Urine RBC's 0 TO 2 Normal 0-2 [facility] Comment on above: Performed By: #### U AMIC #### [facility] [address] [place], [place] [id number] Lithograph Press Feeder: Christian Hanley MD Urine WBC's 0 TO 2 Normal 0-5 [facility] Comment on above: Performed By: #### U AMIC #### [facility] [address] [place] [address] [employer]ograph Press Feeder: Christian Hanley MD Urobilinogen,Ur Normal Normal 0.0-1.0 [facility] Comment on above: Performed By: #### U AMIC #### [facility] [address] [place] [address] [employer]ograph Press Feeder: Christian Hanley MD Urinalysis with Microscopico n 06-20-2025 Bacteria LM Ql (Urine sed) TRACE Abnormal None [facility] Bilirubin Ql (U) Negative NEGATIVE [facility] Casts LM.LPF (Urine sed) [#/Area] 0 TO 2 HYALINE /LPF [facility] Clarity (U) Clear Clear [facility] Color (U) Yellow Yellow [facility] Epithelial cells LM.HPF (Urine sed) [#/Area] 2 TO 5 [facility] Glucose Test strip (U) [Mass/Vol] Negative NEGATIVE mg/dL [facility] Hemoglobin Auto test strip Ql (U) Negative NEGATIVE [facility] Interpretation and review of laboratory results Abnormal [facility] Ketones (U) [Mass/Vol] 2+ Abnormal NEGATIVE mg/dL [facility] Leukocyte esterase Test strip Ql (U) Negative NEGATIVE [facility] Mucus Ql (Urine sed) TRACE Abnormal None [facility] Nitrite Ql (U) Negative NEGATIVE [facility] pH (U) 8.0 [pH] 5.0 - 9.0 [facility] Protein (U) [Mass/Vol] 1+ Abnormal NEGATIVE mg/dL [facility] RBC LM.HPF (Urine sed) [#/Area] 0 TO 2 [facility] [employer] [facility] Specific gravity (U) [Rel density] 1.020 1.010 - 1.020 [facility] Urobilinogen Qn (U) Normal 0.0 - 1. 0 EU/dL [facility] WBC LM.HPF (Urine sed) [#/Area] 0 TO 2 [facility] Urine Drug Screenon 06-20-20 25 Amphetamines Ql (U) Negative NEGATIVE [facility] Comment on above: Cutoff: 1000 ng/mL Barbiturates Screen Ql (U) Negative NEGATIVE [facility] Comment on above: Cutoff: 200 ng/ml Benzodiazepines Ql (U) Negative NEGATIVE [facility] Comment on above: Cutoff: 200 ng/ml Cannabinoids Screen Ql (U) Positive Abnormal NEGATIVE [facility] Comment on above: Cutoff: 50 ng/ml Cocaine Ql (U) Negative NEGATIVE [facility] Comment on above: Cutoff: 300 ng/ml fentaNYL Ql (U) Negative NEGATIVE [facility] Comment on above: Cutoff: 5 ng/ml Interpretation and review of laboratory results Abnormal [facility] Methadone Ql (U) Negative NEGATIVE [facility] Comment on above: Cutoff: 300 ng/ml Opiates Screen Ql (U) Negative NEGATIVE [facility] Comment on above: Cutoff: 300 ng/ml Note: The Opiate screen is not intended to detect Oxycodone. oxyCODONE Ql (U) Negative NEGATIVE [facility] Comment on above: Cutoff: 100 ng/ml Phencyclidine Ql (U) Negative NEGATIVE [facility] Comment on above: Cutoff: 25 ng/ml Test Information This method is a screening test to detect only these drug classes as part of a medical workup. Confirmatory testing by another method should be ordered if clinically indicated. [facility] BASIC METABOLIC PANELon 05-05 Anion gap [Moles/Vol] 9 mmol/L Normal 5-15 [facility] Comment on above: Performed By: #### C BCA CMP, 1988-02, 53609-9, 16812-1, 5643- 2, 2157-03 #### [facility] ([id number]) [address] [place] [address], [place] [address] Calcium [Mass/Vol] 10.0 mg/dL Normal 8.5-10.5 [facility] Comment on above: Performed By: #### C BCA CMP, 1988-02, 12185-7, 69649-0, 5643- 2, 2157-03 #### [facility] ([id number]) [address] [place] [address] Chloride [Moles/Vol] 99 mmol/L Normal 98-109 [facility] Comment on above: Performed By: #### C SYED LEI, 1988-02, , 55411-7, 2, 2157-03 #### [facility] ([id number]) [address] [place] [address]39 CO2 [Moles/Vol] 29 mmol/L Normal 22-32 [facility] Comment on above: Performed By: #### C SYED LEI, 1988-02, , 36900-3, , 2157-03 #### [facility] ([id number]) [address] [place] [address]15 Creatinine [Mass/Vol] 0.83 mg/dL Normal 0.40-1.00 [facility] Comment on above: Result Comment: METH OD TRACEABLE TO IDMS STANDARD Performed By: #### C SYED LEI, 1988-02, , 06285-4, 5642-11, 2157-03 #### [facility] ([id number]) [address] [place] [address]75 EGFR (CKD-EPI) NON-RACE DEPENDENT >^90 Normal >=60 [facility] Comment on above: Result Comment: Repo rted eGFR is based on the CKD-EPI 2020 equation that does not use a race coefficient. Performed By: #### C SYED LEI, 1988-02, , 22447-1, 5642-11, 2157-03 #### [facility] ([id number]) [address] [place] [address]8579 Glucose [Mass/Vol] 77 mg/dL Normal 65-99 [facility] Comment on above: Performed By: #### C SYED LEI, 1988-02, , 73617-0, 43- 2, 2157-03 #### [facility] ([id number]) [address] [place] [address] Potassium [Moles/Vol] 4.6 mmol/L Normal 3.5-5.0 [facility] Comment on above: Performed By: #### C BCA, [facility], 1988-02, , 37543-9, 2, 2157-03 #### [facility] ([id number]) [address] [place] [address] Sodium [Moles/Vol] 137 mmol/L Normal 134-146 [facility] Comment on above: Performed By: #### C QUIQUE, [facility], 1988-02, , 64358-4, 2, 2157-03 #### [facility] ([id number]) [address] [place] [address]237 Urea nitrogen [Mass/Vol] 11 mg/dL Normal 5-23 [facility] Comment on above: Performed By: #### C BCA, [facility], 1988-02, , 97835-6, 2, 2157-03 #### [facility] ([id number]) [address] [place] [address] Basic Metabolic Panelon 08-0 Anion gap [Moles/Vol] 18 mmol/L High 9 - 16 mmol/L [facility] Calcium [Mass/Vol] 10.0 mg/dL 8.6 - 10. 4 mg/dL [facility] Chloride [Moles/Vol] 97 mmol/L Low 98 - 10 7 mmol/L [facility] CO2 [Moles/Vol] 23 mmol/L 20 - 31 mmol/L [facility] Creatinine [Mass/Vol] 1.2 mg/dL High 0.50 - 0.90 mg/dL [facility] Est, Glom Filt Rate 67 - PINF [facility] Comment on above: These results are not intended for use in patients <18 years of age. eGFR results are calculated without a race factor using the 2020 CKD-EPI equation. Careful clinical correlation is recommended, particularly when comparing to results calculated using previous equations. The CKD-EPI equation is less accurate in patients with extremes of muscle mass, extra-renal metabolism of creatine, excessive creatine ingestion, or following therapy that affects renal tubular secretion. Glucose [Mass/Vol] 141 mg/dL High 74 - 99 mg/dL [facility] Interpretation and review of laboratory results Abnormal [facility] Potassium [Moles/Vol] 3.3 mmol/L Low 3.7 - 5.3 mmol/L [facility] Sodium [Moles/Vol] 138 mmol/L 136 - 145 mmol/L [facility] Urea nitrogen [Mass/Vol] 16 mg/dL 6 - 20 mg/dL [facility] Urea nitrogen/Creatinine [Mass ratio] 13 mg/mg 9 - 20 [facility] Basic Metabolic Profon 05-13 Anion gap [Moles/Vol] 18 mmol/L High 9-16 [facility] Comment on above: Performed By: #### Christine SNIDER UA #### [facility] [address] [place] [address] [place] [address] [employer]ograph Press Feeder: Christian Hanley MD BUN/CRE Ratio 13 Normal 9-20 [facility] Comment on above: Performed By: #### Christine SNIDER UA #### [facility] [address] [place] [address] [employer]ograph Press Feeder: Christian Hanley MD Calcium [Mass/Vol] 10.0 mg/dL Normal 8.6-10.4 [facility] Comment on above: Performed By: #### Christine SNIDER UA #### [facility] [address] [place] [address] [employer]ograph Press Feeder: Christian Hanley MD Chloride [Moles/Vol] 97 mmol/L Low 98-107 [facility] Comment on above: Performed By: #### U AGATHA UA #### [facility] [address] [place] [address] [employer] Press Feeder: Christian Hanley MD CO2 [Moles/Vol] 23 mmol/L Normal 20-31 [facility] Comment on above: Performed By: #### Christine SNIDER UA #### [facility] [address] [place] [address] [employer]ograph Press Feeder: Christian Hanley MD Creatinine [Mass/Vol] 1.2 mg/dL High 0.50-0.90 [facility] Comment on above: Performed By: #### Christine SNIDER UA #### [facility] [address] [place] [address] [employer] Press Feeder: Christian Hanley MD GFR/1.73 sq M.predicted among non-blacks MDRD (S/P/Bld) [Vol rate/Area] 67 mL/min/{1.73_m2} Normal >60 [facility] Comment on above: Result Comment: These results are not intended for use in patients <18 years of age. eGFR results are calculated without a race factor using the 2020 CKD-EPI equation. Careful clinical correlation is recommended, particularly when comparing to results calculated using previous equations. The CKD-EPI equation is less accurate in patients with extremes of muscle mass, extra-renal metabolism of creatine, excessive creatine ingestion, or following therapy that affects renal tubular secretion. Performed By: #### Christine SNIDER UA #### [facility] [address] [place] [address] [employer] Press Feeder: Christian Hanley MD Glucose [Mass/Vol] 141 mg/dL High 74-99 [facility] Comment on above: Performed By: #### Christine SNIDER UA #### [facility] [address] [place] [address] [employer] Press Feeder: Christian Hanley MD Potassium [Moles/Vol] 3.3 mmol/L Low 3.7-5.3 [facility] Comment on above: Performed By: #### Christine SNIDER UA #### [facility] [address] [place] [address] [employer] Press Feeder: Christian Hanley MD Sodium [Moles/Vol] 138 mmol/L Normal 136-145 [facility] Comment on above: Performed By: #### U MICAO, UA #### [facility] [address] [place] [address] [employer] Press Feeder: Christian Hanley MD Urea nitrogen [Mass/Vol] 16 mg/dL Normal 6-20 [facility] Comment on above: Performed By: #### U BRITTANEYO, UA #### [facility] [address] [place] [address] [employer] Press Feeder: Christian Hanley MD CBC with Auto Differentialon 05-13-2025 Basophils (Bld) [#/Vol] 0.04 10*3/uL [facility] Basophils/100 WBC (Bld) 0 % 0 - 2 % [facility] Eosinophils (Bld) [#/Vol] [facility] Eosinophils/100 WBC (Bld) 0 % Low 1 - 4 % [facility] Erythrocyte distribution width (RBC) [Ratio] 13.9 % 11.8 - 14.4 % [facility] Hematocrit (Bld) [Volume fraction] 38.7 % 36.3 - 47.1 % [facility] Hemoglobin (Bld) [Mass/Vol] 12.9 g/dL 11.9 - 15.1 g/dL [facility] Immature granulocytes (Bld) [#/Vol] 0.07 10*3/uL [facility] Immature granulocytes/100 WBC (Bld) 1 % High 0 [facility] Interpretation and review of laboratory results Abnormal [facility] Lymphocytes/100 WBC (Bld) 10 % Low 24 - 43 % [facility] Lymphocytes/100 WBC (Bld) 1.52 % [facility] MCH (RBC) [Entitic mass] 29.5 pg 25.2 - 33.5 pg [facility] MCHC (RBC) [Mass/Vol] 33.3 g/dL 28.4 - 34.8 g/dL [facility] MCV (RBC) [Entitic vol] 88.6 fL 82.6 - 102.9 fL [facility] Monocytes/100 WBC (Bld) 7 % 3 - 12 % [facility] Monocytes/100 WBC (Bld) 1.01 % [facility] Neutrophils/100 WBC (Bld) 82 % High 36 - 65 % [facility] Nucleated RBC/100 WBC (Bld) [Ratio] 0.0 % 0.0 per 100 WBC [facility] Platelet mean volume (Bld) [Entitic vol] 9.1 fL 8.1 - 13.5 fL [facility] Platelets (Bld) [#/Vol] 355 10*3/uL [facility] RBC (Bld) [#/Vol] 4.37 10*6/uL 3.95 - 5.1 1 m/uL [facility] Segmented neutrophils/100 WBC (Bld) 12.62 % High [facility] WBC other (Bld) [#/Vol] 15.3 High [facility] CBC with Diffon 05-13-2025 Abs. Basophil 0.04 k/uL Normal 0.00-0.20 [facility] Comment on above: Performed By: #### STANTON GARCIA #### [facility] [address] [place] [address] [employer] Press Feeder: Christian Hanley MD Abs. Eosinophil <0.03 Normal 0.00-0.44 [facility] Comment on above: Performed By: #### U AGATHA UA #### [facility] [address] [place] [address] [employer] Press Feeder: Christian Hanley MD Abs.Imm.Granulocyte 0.07 k/uL Normal 0.00-0.30 [facility] Comment on above: Performed By: #### STANTON GARCIA #### [facility] [address] [place] [address] [employer] Press Feeder: Christian Hanley MD Abs.Neutrophil (Seg) 12.62 k/uL High 1.50-8.10 [facility] Comment on above: Performed By: #### U STANTON SNIDER #### [facility] [address] [place] [address] [place], [place] [id number] [employer] Press Feeder: Christian Hanley MD Basophils/100 WBC (Bld) 0 % Normal 0-2 [facility] Comment on above: Performed By: #### U AGATHA UA #### [facility] [address] [place] [address] [place] [place], [place] [id number] [employer] Feeder: Christian Hanley MD Eosinophils/100 WBC (Bld) 0 % Low 1-4 [facility] Comment on above: Performed By: #### STANTON GARCIA #### [address] [place] [address] [employer] Press Feeder: Christian Hanley MD Erythrocyte distribution width (RBC) [Ratio] 13.9 % Normal 11.8-14.4 [facility] Comment on above: Performed By: #### STANTON GARCIA #### [address] [place], [place] [id number] [employer] Press Feeder: Christian Hanley MD Hematocrit (Bld) [Volume fraction] 38.7 % Normal 36.3-47.1 [facility] Comment on above: Performed By: #### STANTON GARCIA #### [address] [place], [place] [id number] [employer] Feeder: Christian Hanley MD Hemoglobin (Bld) [Mass/Vol] 12.9 g/dL Normal 11.9-15.1 [facility] Comment on above: Performed By: #### U AGATHA UA #### [address] [place], [place] [id number] [employer] Feeder: Christian Hanley MD Immature granulocytes/100 WBC (Bld) 1 % High 0 [facility] Comment on above: Performed By: #### U AGATHA, UA #### [facility] [address] [place], [facility]83 [employer] Press Feeder: Christian Hanley MD Lymphocytes (Bld) [#/Vol] 1.52 10*3/uL Normal 1.10-3.70 [facility] Comment on above: Performed By: #### U AGATHA, UA #### [facility] [address] [place], [place] [address] [employer] Press Feeder: Christian Hanley MD Lymphocytes/100 WBC (Bld) 10 % Low 24-43 [facility] Comment on above: Performed By: #### Christine SNIDER UA #### [facility] [address] [place], [facility]83 [employer] Feeder: Christian Hanley MD MCH (RBC) [Entitic mass] 29.5 pg Normal 25.2-33.5 [facility] Comment on above: Performed By: #### Christine SNIDER UA #### [address] [place], [facility]83 [employer] Feeder: Christian Hanley MD MCHC (RBC) [Mass/Vol] 33.3 g/dL Normal 28.4-34.8 [facility] Comment on above: Performed By: #### Christine SNIDER UA #### [address] [place], [facility]83 [employer] Feeder: Christian Hanley MD MCV (RBC) [Entitic vol] 88.6 fL Normal 82.6-102.9 [facility] Comment on above: Performed By: #### U AGATHA, UA #### [facility] [address] [place] [address] [employer] Feeder: Christian Hanley MD Monocytes (Bld) [#/Vol] 1.01 10*3/uL Normal 0.10-1.20 [facility] Comment on above: Performed By: #### U MICAO, UA #### [facility] [address] [place], [place] [id number] [employer] Feeder: Christian Hanley MD Monocytes/100 WBC (Bld) 7 % Normal 3-12 [facility] Comment on above: Performed By: #### U BRITTANEYO, UA #### [facility] [address] [place], [place] [id number] [employer] Feeder: Christian Hanley MD Neutrophil (Seg) 82 % High 36-65 [facility] Comment on above: Performed By: #### U BRITTANEYO, UA #### [facility] [address] [place], [place] [id number] [employer] Feeder: Christian Hanley MD NRBC Automated 0.0 per 100 WBC Normal 0.0 [facility] Comment on above: Performed By: #### U BRITTANEYO, UA #### [facility] [address] [place], [place] [id number] [employer] Feeder: Christian Hanley MD Platelet mean volume (Bld) [Entitic vol] 9.1 fL Normal 8.1-13.5 [facility] Comment on above: Performed By: #### U BRITTANEYO, UA #### [address] [place], [place] [id number] [employer] Feeder: Christian Hanley MD Platelets (Bld) [#/Vol] 355 10*3/uL Normal 138-453 [facility] Comment on above: Performed By: #### U MICAO, UA #### [facility] [address] [place], [place] [id number] [employer] Feeder: Christian Hanley MD RBC (Bld) [#/Vol] 4.37 10*6/uL Normal 3.95-5.11 [facility] Comment on above: Performed By: #### U BRITTANEYO, UA #### [facility] [address] [place], [place] [id number] [employer] Feeder: Christian Hanley MD WBC (Bld) [#/Vol] 15.3 10*3/uL High 3.5-11.3 [facility] Comment on above: Performed By: #### U MICAO, UA #### [facility] [address] [place] [address] [place] [address] [employer] Feeder: Christian Hanley MD Drug Scr, Abuse, Uron 2024 Amphetamine(s),Ur Negative Normal NEG [facility] Comment on above: Result Comment: Cuto ff: 1000 ng/mL Performed By: #### U BRITTANEYO, UA #### [facility] [address] [place] [address] Dr. [place], [place] [id number] [employer] Feeder: Christian Hanley MD Barbiturate(s),Ur Negative Normal NEG [facility] Comment on above: Result Comment: Cuto ff: 200 ng/ml Performed By: #### U MICAO, UA #### [facility] [address] [place] [address] [place] [address] [employer] Feeder: Christian Hanley MD Benzodiazepine(s) Negative Normal NEG [facility] Comment on above: Result Comment: Cuto ff: 200 ng/ml Performed By: #### U MICAO, UA #### [address] [place], [place] [id number] [employer] Feeder: Christian Hanley MD Cannabinoid(s),Ur Positive Abnormal NEG [facility] Comment on above: Result Comment: Cuto ff: 50 ng/ml Performed By: #### U MICAO, UA #### [facility] [address] [place] [address] Dr. [place], [place] [id number] [employer] Feeder: Christian Hanley MD Cocaine Metabolite Negative Normal NEG [facility] Comment on above: Result Comment: Cuto ff: 300 ng/ml Performed By: #### U MICAO, UA #### [facility] [address] [place] [address] Dr. [place], [place] [id number] [employer] Feeder: Christian Hanley MD Fentanyl, Urine Negative Normal NEG [facility] Comment on above: Result Comment: Cuto ff: 5 ng/ml Performed By: #### U BRITTANEYO, UA #### [facility] [address] [place] [address] Dr. [place], [place] [id number] [employer] Feeder: Christian Hanley MD Interpretive Info This method is a screening test to detect only these drug classes as part of a Normal [facility] Comment on above: Result Comment: medi marina workup. Confirmatory testing by another method should be ordered if clinically indicated. Performed By: #### U BRITTANEYO, UA #### [address] [place], [place] [id number] [employer] Feeder: Christian Hanley MD Methadone Ql (U) Negative Normal NEG [facility] Comment on above: Result Comment: Cuto ff: 300 ng/ml Performed By: #### U BRITTANEYO, UA #### [address] [place], [place] [id number] [employer] Feeder: Christian Hanley MD Opiate(s), Ur Negative Normal NEG [facility] Comment on above: Result Comment: Cuto ff: 300 ng/ml Note: The Opiate screen is not intended to detect Oxycodone. Performed By: #### U BRITTANEYO, UA #### [address] [place], [place] 9561883 [employer] Feeder: Christian Hanley MD Oxycodone, Urine Negative Normal NEG [facility] Comment on above: Result Comment: Cuto ff: 100 ng/ml Performed By: #### U MICAO, UA #### [address] [place] [address] [employer] Feeder: Christian Hanley MD Phencyclidine, Ur Negative Normal NEG [facility] Comment on above: Result Comment: Cuto ff: 25 ng/ml Performed By: #### U MICAO, UA #### [facility] [address] [place], [place] [id number] [employer] Feeder: Christian Hanley MD Urinalysis w/ Microon 2024 Bacteria 1+ Abnormal NONE [facility] Comment on above: Performed By: #### U MICAO, UA #### [facility] [address] [place], [place] [id number] [employer] Feeder: Christian Hanley MD Bilirubin, SemiQt,Ur Negative Normal NEG [facility] Comment on above: Performed By: #### U MICAO, UA #### [facility] [address] [place], [place] [phone] [employer] Feeder: Christian Hanley MD Blood, Urine TRACE Abnormal NEG [facility] Comment on above: Performed By: #### U MICAO, UA #### [facility] [address] [place] [address] Dr. [place], [facility]83 [employer] Feeder: Christian Hanley MD Clarity (U) Clear Normal CLEAR [facility] Comment on above: Performed By: #### U MICAO, UA #### [address] [place], [place] 8558783 [employer] Feeder: Christian Hanley MD Color (U) Yellow Normal YEL [facility] Comment on above: Performed By: #### U MICAO, UA #### [facility] [address] [place] [address] Dr. [place], [place] 9577083 [employer] Feeder: Christian Hanley MD Epithelial cells LM Ql (Urine sed) 10 TO 20 Normal 0-25 [facility] Comment on above: Performed By: #### U MICAO, UA #### [facility] [address] [place] [address] [employer] Feeder: Christian Hanley MD Glucose Ql (U) Negative Normal NEG [facility] Comment on above: Performed By: #### U MICAO, UA #### [facility] [address] [place] [address] Dr. [place], [place] [id number] [employer] Feeder: Christian Hanley MD Ketones Ql (U) Negative Normal NEG [facility] Comment on above: Performed By: #### U MICAO, UA #### [facility] [address] [place], [place] [id number] [employer] Feeder: Christian Hanley MD Leukocyte esterase Test strip Ql (U) Negative Normal NEG [facility] Comment on above: Performed By: #### U MICAO, UA #### [facility] [address] [place], [place] 1710783 [employer] Feeder: Christian Hanley MD Mucus Strands 1+ Abnormal NONE [facility] Comment on above: Performed By: #### U MICAO, UA #### [facility] [address] [place] [address] Dr. [place], [place] [id number] [employer] Feeder: Christian Hanley MD Nitrite,Ur Negative Normal [facility] Comment on above: Performed By: #### U MICAO, UA #### [facility] [address] [place] [address] Dr. [place], [place] 1356583 [employer] Feeder: Christian Hanley MD PH,Ur 6.0 Normal 5.0-9.0 [facility] Comment on above: Performed By: #### U MICAO, UA #### [facility] [address] [place] [address] Dr. [place], [place] [id number] [employer] Feeder: Christian Hanley MD Protein Ql (U) 2+ mg/dL Abnormal NEG [facility] Comment on above: Performed By: #### U MICAO, UA #### [facility] [address] [place] [address] Dr. [place], [place] [address]1983 [employer] Feeder: Christian Hanley MD Spec. [place],Ur >1.030 High 1.010-1.020 [facility] Comment on above: Performed By: #### U MICAO, UA #### [facility] [address] [place] [address] [place] [address] [employer] Feeder: Christian Hanley MD Urine RBC's 0 TO 2 Normal 0-2 [facility] Comment on above: Performed By: #### U MICAO, UA #### [facility] [address] [place] [address] [employer] Feeder: Christian Hanley MD Urine WBC's 0 TO 2 Normal 0-5 [facility] Comment on above: Performed By: #### U MICAO, UA #### [facility] [address] [place] [address] [employer] Feeder: Christian Hanley MD Urobilinogen,Ur Normal Normal 0.0-1.0 [facility] Comment on above: Performed By: #### U MICAO, UA #### [facility] [address] [place] [address] [employer] Feeder: Christian Hanley MD Urinalysis with Microscopico n 05-13-2025 Bacteria LM Ql (Urine sed) 1+ Abnormal None [facility] Bilirubin Ql (U) Negative NEGATIVE [facility] Clarity (U) Clear Clear [facility] Color (U) Yellow Yellow [facility] Epithelial cells LM.HPF (Urine sed) [#/Area] 10 TO 20 [facility] Glucose Test strip (U) [Mass/Vol] Negative NEGATIVE mg/dL [facility] Hemoglobin Auto test strip Ql (U) TRACE Abnormal NEGATIVE [facility] Interpretation and review of laboratory results Abnormal [facility] Ketones (U) [Mass/Vol] Negative NEGATIVE mg/dL [facility] Leukocyte esterase Test strip Ql (U) Negative NEGATIVE [facility] Mucus Ql (Urine sed) 1+ Abnormal None [facility] Nitrite Ql (U) Negative NEGATIVE [place] [facility] pH (U) 6.0 [pH] 5.0 - 9.0 [facility] Protein (U) [Mass/Vol] 2+ Abnormal NEGATIVE mg/dL [facility] RBC LM.HPF (Urine sed) [#/Area] 0 TO 2 [facility] Specific gravity (U) [Rel density] High 1.010 - 1.020 [facility] Urobilinogen Qn (U) Normal 0.0 - 1. 0 EU/dL [facility] WBC LM.HPF (Urine sed) [#/Area] 0 TO 2 [facility] Urine Drug Screenon 05-13-20 25 Amphetamines Ql (U) Negative NEGATIVE [facility] [employer] Comment on above: Cutoff: 1000 ng/mL Barbiturates Screen Ql (U) Negative NEGATIVE [facility] Comment on above: Cutoff: 200 ng/ml Benzodiazepines Ql (U) Negative NEGATIVE [facility] Comment on above: Cutoff: 200 ng/ml Cannabinoids Screen Ql (U) Positive Abnormal NEGATIVE [facility] [employer] Comment on above: Cutoff: 50 ng/ml Cocaine Ql (U) Negative NEGATIVE [place] [facility] Comment on above: Cutoff: 300 ng/ml fentaNYL Ql (U) Negative NEGATIVE [facility] [employer] Comment on above: Cutoff: 5 ng/ml Interpretation and review of laboratory results Abnormal [facility] Methadone Ql (U) Negative NEGATIVE [facility] [employer] Comment on above: Cutoff: 300 ng/ml Opiates Screen Ql (U) Negative NEGATIVE [facility] [employer] Comment on above: Cutoff: 300 ng/ml Note: The Opiate screen is not intended to detect Oxycodone. oxyCODONE Ql (U) Negative NEGATIVE [facility] [employer] Comment on above: Cutoff: 100 ng/ml Phencyclidine Ql (U) Negative NEGATIVE [facility] Comment on above: Cutoff: 25 ng/ml Test Information This method is a screening test to detect only these drug classes as part of a medical workup. Confirmatory testing by another method should be ordered if clinically indicated. [facility] Basic Metab w/rfx MGon 04-26 Anion gap [Moles/Vol] 12 mmol/L Normal 9-16 [facility] Comment on above: Performed By: #### U STANTON SNIDER #### [facility] [address] [place] [address] [employer] Feeder: Christian Hanley MD BUN/CRE Ratio 19 Normal 9-20 [facility] Comment on above: Performed By: #### U MICAO, UA #### [facility] [address] [place], [place] 2373283 [employer] Feeder: Christian Hanley MD Calcium [Mass/Vol] 8.4 mg/dL Low 8.6-10.4 [facility] Comment on above: Performed By: #### U MICAO, UA #### [facility] [address] [place], [place] 0655[address] [employer] Feeder: Christian Hanley MD Chloride [Moles/Vol] 96 mmol/L Low 98-107 [facility] Comment on above: Performed By: #### U BRITTANEYO, UA #### [facility] [address] [place], [place] 1388783 [employer] Feeder: Christian Hanley MD CO2 [Moles/Vol] 30 mmol/L Normal 20-31 [facility] Comment on above: Performed By: #### U BRITTANEYO, UA #### [facility] [address] [place] [address] [employer] Feeder: Christian Hanley MD Creatinine [Mass/Vol] 1.0 mg/dL High 0.50-0.90 [facility] Comment on above: Performed By: #### U BRITTANEYO, UA #### [facility] [address] [place] [address] [employer] Feeder: Christian Hanley MD GFR/1.73 sq M.predicted among non-blacks MDRD (S/P/Bld) [Vol rate/Area] 78 mL/min/{1.73_m2} Normal >60 [facility] Comment on above: Result Comment: These results are not intended for use in patients <18 years of age. eGFR results are calculated without a race factor using the 2020 CKD-EPI equation. Careful clinical correlation is recommended, particularly when comparing to results calculated using previous equations. The CKD-EPI equation is less accurate in patients with extremes of muscle mass, extra-renal metabolism of creatine, excessive creatine ingestion, or following therapy that affects renal tubular secretion. Performed By: #### Christine SNIDER UA #### [facility] [address] [place] [address] [employer] Feeder: Christian Hanley MD Glucose [Mass/Vol] 100 mg/dL High 74-99 [facility] Comment on above: Performed By: #### Christine SNIDER UA #### [facility] [address] [place], [place] [id number] [employer] Feeder: Christian Hanley MD Potassium [Moles/Vol] 2.6 mmol/L Critically low 3.7-5.3 [facility] Comment on above: Performed By: #### Christine SNIDER UA #### [address] [place], [place] [id number] [employer] Feeder: Christian Hanley MD Sodium [Moles/Vol] 138 mmol/L Normal 136-145 [facility] Comment on above: Performed By: #### Christine SNIDER UA #### [address] [place] [address] [employer] Feeder: Christian Hanley MD Urea nitrogen [Mass/Vol] 19 mg/dL Normal 6-20 [facility] Comment on above: Performed By: #### Christine SNIDER UA #### [facility] [address] [place] [address] [place] [address] [employer] Feeder: Christian Hanley MD Basic Metabolic Panel w/ Ref unique to MGon 04-26-2025 Anion gap [Moles/Vol] 12 mmol/L 9 - 16 mmol/L [facility] Calcium [Mass/Vol] 8.4 mg/dL Low 8.6 - 10. 4 mg/dL [facility] Chloride [Moles/Vol] 96 mmol/L Low 98 - 10 7 mmol/L [facility] CO2 [Moles/Vol] 30 mmol/L 20 - 31 mmol/L [facility] Creatinine [Mass/Vol] 1.0 mg/dL High 0.50 - 0.90 mg/dL [facility] Garo Breauxt Rate 78 - PINF [facility] Comment on above: These results are not intended for use in patients <18 years of age. eGFR results are calculated without a race factor using the 2020 CKD-EPI equation. Careful clinical correlation is recommended, particularly when comparing to results calculated using previous equations. The CKD-EPI equation is less accurate in patients with extremes of muscle mass, extra-renal metabolism of creatine, excessive creatine ingestion, or following therapy that affects renal tubular secretion. Glucose [Mass/Vol] 100 mg/dL High 74 - 99 mg/dL [facility] Interpretation and review of laboratory results Abnormal [facility] Potassium [Moles/Vol] 2.6 mmol/L Critically low 3.7 - 5.3 mmol/L [facility] Sodium [Moles/Vol] 138 mmol/L 136 - 145 mmol/L [facility] Urea nitrogen [Mass/Vol] 19 mg/dL 6 - 20 mg/dL [facility] Urea nitrogen/Creatinine [Mass ratio] 19 mg/mg 9 - 20 [facility] CBC with Auto Differentialon 04-26-2025 Basophils (Bld) [#/Vol] 0.05 10*3/uL [facility] Basophils/100 WBC (Bld) 1 % 0 - 2 % [facility] Eosinophils (Bld) [#/Vol] 0.24 10*3/uL [facility] Eosinophils/100 WBC (Bld) 2 % 1 - 4 % [facility] Erythrocyte distribution width (RBC) [Ratio] 13.4 % 11.8 - 14.4 % [facility] Hematocrit (Bld) [Volume fraction] 33.4 % Low 36.3 - 47.1 % [facility] Hemoglobin (Bld) [Mass/Vol] 11.6 g/dL Low 11.9 - 15.1 g/dL [facility] Immature granulocytes (Bld) [#/Vol] 0.05 10*3/uL [facility] Immature granulocytes/100 WBC (Bld) 1 % High 0 [facility] Interpretation and review of laboratory results Abnormal [facility] Lymphocytes/100 WBC (Bld) 29 % 24 - 43 % [facility] Lymphocytes/100 WBC (Bld) 2.87 % [facility] MCH (RBC) [Entitic mass] 29.7 pg 25.2 - 33.5 pg [facility] MCHC (RBC) [Mass/Vol] 34.7 g/dL 28.4 - 34.8 g/dL [facility] MCV (RBC) [Entitic vol] 85.6 fL 82.6 - 102.9 fL [facility] Monocytes/100 WBC (Bld) 10 % 3 - 12 % [facility] Monocytes/100 WBC (Bld) 0.98 % [facility] Neutrophils/100 WBC (Bld) 58 % 36 - 65 % [facility] Nucleated RBC/100 WBC (Bld) [Ratio] 0 % 0.0 per 100 WBC [facility] Platelet mean volume (Bld) [Entitic vol] 10.9 fL 8.1 - 13.5 fL [facility] Platelets (Bld) [#/Vol] 238 10*3/uL [facility] RBC (Bld) [#/Vol] 3.9 10*6/uL Low 3.95 - 5.1 1 m/uL [facility] Segmented neutrophils/100 WBC (Bld) 5.69 % [facility] WBC other (Bld) [#/Vol] 9.9 [facility] CBC with Diffon 04-26-2025 Abs. Basophil 0.05 k/uL Normal 0.00-0.20 [facility] Comment on above: Performed By: #### STANTON GARCIA #### [facility] [address] [place] [address] [employer] Press Feeder: Christian Hanley MD Abs.Imm.Granulocyte 0.05 k/uL Normal 0.00-0.30 [facility] Comment on above: Performed By: #### STANTON GARCIA #### [facility] [address] [place], [place] [id number] [employer] Feeder: Christian Hanley MD Abs.Neutrophil (Seg) 5.69 k/uL Normal 1.50-8.10 [facility] Comment on above: Performed By: #### U MICAO, UA #### [address] [place], [facility]83 [employer] Feeder: Christian Hanley MD Basophils/100 WBC (Bld) 1 % Normal 0-2 [facility] Comment on above: Performed By: #### U BRITTANEYO, UA #### [address] [place], [place] [address] [employer] Feeder: Christian Hanley MD Eosinophils (Bld) [#/Vol] 0.24 10*3/uL Normal 0.00-0.44 [facility] Comment on above: Performed By: #### U BRITTANEYO, UA #### [address] [place], [facility]83 [employer]eder: Christian Hanley MD Eosinophils/100 WBC (Bld) 2 % Normal 1-4 [facility] Comment on above: Performed By: #### U MICAO, UA #### [address] [place] [id number] [employer] Feeder: Christian Hanley MD Erythrocyte distribution width (RBC) [Ratio] 13.4 % Normal 11.8-14.4 [facility] Comment on above: Performed By: #### U MICAO, UA #### [address] [place], [facility]83 [employer] Feeder: Christian Hanley MD Hematocrit (Bld) [Volume fraction] 33.4 % Low 36.3-47.1 [facility] Comment on above: Performed By: #### U BRITTANEYO, UA #### [address] [place] [facility]83 [employer] Feeder: Christian Hanley MD Hemoglobin (Bld) [Mass/Vol] 11.6 g/dL Low 11.9-15.1 [facility] Comment on above: Performed By: #### U BRITTANEYO, UA #### [facility] [address] [place], [place] [id number] [employer] Feeder: Christian Hanley MD Immature granulocytes/100 WBC (Bld) 1 % High 0 [facility] Comment on above: Performed By: #### U BRITTANEYO, UA #### [facility] [address] [place], [place] [id number] [employer] Feeder: Christian Hanley MD Lymphocytes (Bld) [#/Vol] 2.87 10*3/uL Normal 1.10-3.70 [facility] Comment on above: Performed By: #### Christine SNIDER UA #### [address] [place], [facility]83 [employer] Feeder: Christian Hanley MD Lymphocytes/100 WBC (Bld) 29 % Normal 24-43 [facility] Comment on above: Performed By: #### U AGATHA, UA #### [address] [place], [facility]83 [employer] Feeder: Christian Hanley MD MCH (RBC) [Entitic mass] 29.7 pg Normal 25.2-33.5 [facility] Comment on above: Performed By: #### U BRITTANEYO, UA #### [address] [place] [address] [employer]eder: Christian Hanley MD MCHC (RBC) [Mass/Vol] 34.7 g/dL Normal 28.4-34.8 [facility] Comment on above: Performed By: #### U BRITTANEYO, UA #### [facility] [address] [place], [place] [id number] [employer] Feeder: Christian Hanley MD MCV (RBC) [Entitic vol] 85.6 fL Normal 82.6-102.9 [facility] Comment on above: Performed By: #### U AGATHA UA #### [facility] [address] [place], [place] [id number] [employer] Feeder: Christian Hanley MD Monocytes (Bld) [#/Vol] 0.98 10*3/uL Normal 0.10-1.20 [facility] Comment on above: Performed By: #### U AGATHA, UA #### [facility] [address] [place], [place] [address] Lithograph Press Feeder: Christian Hanley MD Monocytes/100 WBC (Bld) 10 % Normal 3-12 [facility] Comment on above: Performed By: #### Christine SNIDER UA #### [facility] [address] [place], [place] [address] Lithograph Press Feeder: Christian Hanley MD Neutrophil (Seg) 58 % Normal 36-65 [facility] Comment on above: Performed By: #### Christine SNIDER UA #### [address] [place], [facility]83 Lithograph Press Feeder: Christian Hanley MD NRBC Automated 0.0 per 100 WBC Normal 0.0 [facility] Comment on above: Performed By: #### Christine SNIDER UA #### [address] [place], [facility]83 Lithograph Press Feeder: Christian Hanley MD Platelet mean volume (Bld) [Entitic vol] 10.9 fL Normal 8.1-13.5 [facility] Comment on above: Performed By: #### U AGATHA, UA #### [facility] [address] [place], [place] [id number] Lithograph Press Feeder: Christian Hanley MD Platelets (Bld) [#/Vol] 238 10*3/uL Normal 138-453 [facility] Comment on above: Performed By: #### U AGATHA, UA #### [facility] [address] [place], [place] [id number] Lithograph Press Feeder: Christian Hanley MD RBC (Bld) [#/Vol] 3.90 10*6/uL Low 3.95-5.11 [facility] Comment on above: Performed By: #### U AGATHA, UA #### [facility] [address] [place], [place] [id number] Lithograph Press Feeder: Christian Hanley MD WBC (Bld) [#/Vol] 9.9 10*3/uL Normal 3.5-11.3 [facility] Comment on above: Performed By: #### U AGATHA, UA #### [facility] [address] [place] [id number] Lithograph Press Feeder: Christian Hanley MD CT ABDOMEN PELVIS W IV CONTR Cricket 04-26-2025 CT ABDOMEN PELVIS W IV CONTRAST EXAMINATION: CT OF THE ABDOMEN AND PELVIS WITH CONTRAST, 04/25/2025 1:15 pm TECHNIQUE: CT of the abdomen and pelvis was performed with the administration of intravenous contrast. Multiplanar reformatted images are provided for review. Automated exposure control, iterative reconstruction, and/or weight based adjustment of the mA/kV was utilized to reduce the radiation dose to as low as reasonably achievable. COMPARISON: None HISTORY: ORDERING SYSTEM PROVIDED HISTORY: Vomiting and abdominal pain TECHNOLOGIST PROVIDED HISTORY: Vomiting and abdominal pain Decision Support Exception - unselect if not a suspected or confirmed emergency medical condition->Emergency Medical Condition (MA) FINDINGS: Lower Chest: Visualized portion of the lower chest demonstrates no acute abnormality. Organs: No intrahepatic or extrahepatic ductal dilatation. Focal fatty infiltration of the falciform ligament is noted. No acute inflammation of the gallbladder fossa. The pancreas, adrenal glands, spleen, and kidneys are without acute process. No obstructing ureteral calculus. GI/Bowel: No evidence of small-bowel obstruction. No evidence of acute appendicitis. No focal colitis or diverticulitis. Pelvis: No significant free intrapelvic fluid. The urinary bladder is under distended. Peritoneum/Retroperi toneum: No free intraperitoneal gas. Abdominal aorta is normal in caliber. The splenic vein and portal vein appear patent. Bones/Soft Tissues: No acute osseous or soft tissue abnormality. IMPRESSION: No acute intra-abdominal or pelvic process. Interpreted by: John Porter DO Signed by: John Porter DO 04/26/25 Final result Normal [facility] CT Abdomen and Pelvis W nichole bucio IVon 04-26-2025 No acute intra-abdominal or pelvic process. [facility] RIS CONSOLIDATED EXAMINATION: CT OF THE ABDOMEN AND PELVIS WITH CONTRAST, 04/25/2025 1:15 pm TECHNIQUE: CT of the abdomen and pelvis was performed with the administration of intravenous contrast. Multiplanar reformatted images are provided for review. Automated exposure control, iterative reconstruction, and/or weight based adjustment of the mA/kV was utilized to reduce the radiation dose to as low as reasonably achievable. COMPARISON: None HISTORY: ORDERING SYSTEM PROVIDED HISTORY: Vomiting and abdominal pain TECHNOLOGIST PROVIDED HISTORY: Vomiting and abdominal pain Decision Support Exception - unselect if not a suspected or confirmed emergency medical condition->Emergency Medical Condition (MA) FINDINGS: Lower Chest: Visualized portion of the lower chest demonstrates no acute abnormality. Organs: No intrahepatic or extrahepatic ductal dilatation. Focal fatty infiltration of the falciform ligament is noted. No acute inflammation of the gallbladder fossa. The pancreas, adrenal glands, spleen, and kidneys are without acute process. No obstructing ureteral calculus. GI/Bowel: No evidence of small-bowel obstruction. No evidence of acute appendicitis. No focal colitis or diverticulitis. Pelvis: No significant free intrapelvic fluid. The urinary bladder is under distended. Peritoneum/Retroperi toneum: No free intraperitoneal gas. Abdominal aorta is normal in caliber. The splenic vein and portal vein appear patent. Bones/Soft Tissues: No acute osseous or soft tissue abnormality. [facility] CONSOLID[facility] John Porter DO - 04/26/2025 EXAMINATION: CT OF THE ABDOMEN AND PELVIS WITH CONTRAST, 04/25/2025 1:15 pm TECHNIQUE: CT of the abdomen and pelvis was performed with the administration of intravenous contrast. Multiplanar reformatted images are provided for review. Automated exposure control, iterative reconstruction, and/or weight based adjustment of the mA/kV was utilized to reduce the radiation dose to as low as reasonably achievable. COMPARISON: None HISTORY: ORDERING SYSTEM PROVIDED HISTORY: Vomiting and abdominal pain TECHNOLOGIST PROVIDED HISTORY: Vomiting and abdominal pain Decision Support Exception - unselect if not a suspected or confirmed emergency medical condition->Emergency Medical Condition (MA) FINDINGS: Lower Chest: Visualized portion of the lower chest demonstrates no acute abnormality. Organs: No intrahepatic or extrahepatic ductal dilatation. Focal fatty infiltration of the falciform ligament is noted. No acute inflammation of the gallbladder fossa. The pancreas, adrenal glands, spleen, and kidneys are without acute process. No obstructing ureteral calculus. GI/Bowel: No evidence of small-bowel obstruction. No evidence of acute appendicitis. No focal colitis or diverticulitis. Pelvis: No significant free intrapelvic fluid. The urinary bladder is under distended. Peritoneum/Retroperi toneum: No free intraperitoneal gas. Abdominal aorta is normal in caliber. The splenic vein and portal vein appear patent. Bones/Soft Tissues: No acute osseous or soft tissue abnormality. IMPRESSION: No acute intra-abdominal or pelvic process. [facility] CT Abdomen and Pelvis W cont rast IVOrdered By: John Porter on 04-26-2025 [facility] Work Phone: EKG Rhythm Stripon [facility] LAB [facility] K (Potassium)on 04-26-2025 Potassium [Moles/Vol] 4.3 mmol/L Normal 3.7-5.3 [facility] Comment on above: Result Comment: Spec imen hemolysis has exceeded the interference as defined by Macy. Value may be falsely increased. Suggest recollection if clinically indicated. Performed By: #### K #### [facility] [address] [place] [address] [place] [address] Lithograph Press Feeder: Christian Hanley MD Keppraon 04-26-2025 KEPP 15 ug/mL Normal [facility] Comment on above: Result Comment: A reference range for Keppra has not been well established. The proposed therapeutic range for seizure control is 6-46 ug/mL. Measurement of Levetiracetam (Keppra) can be elevated due to the presence of both Keppra and Brivaracetam (Briviact) in the patient's system. The medications are structurally similar thus cross reactivity is possible. Pharmacokinetics of Keppra are affected by renal function. The relationship between serum concentrations and toxicity is not known. Performed By: #### K EPPRA #### [facility] [address], [place] [id number] Lithograph Press Feeder: Temo Tipton MD Magnesiumon 04-26-2025 Magnesium [Mass/Vol] 2.6 mg/dL 1.6 - 2 .6 mg/dL [facility] Magnesium [Mass/Vol] 2.6 mg/dL Normal 1.6-2.6 [facility] Comment on above: Performed By: #### U MICAO, UA #### [facility] [address] [place] [address] Lithograph Press Feeder: Christian Hanley MD Potassiumon 04-26-2025 Potassium [Moles/Vol] 4.3 mmol/L 3.7 - 5.3 mmol/L [facility] Comment on above: Specimen hemolysis h as exceeded the interference as defined by Macy. Value may be falsely increased. Suggest recollection if clinically indicated. [facility] CBC with Auto Differentialon 04-25-2025 Basophils (Bld) [#/Vol] 0.08 10*3/uL [facility] Basophils/100 WBC (Bld) 1 % 0 - 2 % [facility] Eosinophils (Bld) [#/Vol] 0.03 10*3/uL [facility] Eosinophils/100 WBC (Bld) 0 % Low 1 - 4 % [facility] Erythrocyte distribution width (RBC) [Ratio] 13.1 % 11.8 - 14.4 % [facility] Hematocrit (Bld) [Volume fraction] 46.2 % 36.3 - 47.1 % [facility] Hemoglobin (Bld) [Mass/Vol] 16.5 g/dL High 11.9 - 15.1 g/dL [facility] Immature granulocytes (Bld) [#/Vol] 0.1 10*3/uL [facility] Immature granulocytes/100 WBC (Bld) 1 % High 0 [facility] Interpretation and review of laboratory results Abnormal [facility] Lymphocytes/100 WBC (Bld) 7 % Low 24 - 43 % [facility] Lymphocytes/100 WBC (Bld) 1.17 % [facility] MCH (RBC) [Entitic mass] 29.7 pg 25.2 - 33.5 pg [facility] MCHC (RBC) [Mass/Vol] 35.7 g/dL High 28.4 - 34.8 g/dL [facility] MCV (RBC) [Entitic vol] 83.1 fL 82.6 - 102.9 fL [facility] Monocytes/100 WBC (Bld) 7 % 3 - 12 % [facility] Monocytes/100 WBC (Bld) 1.2 % [facility] Neutrophils/100 WBC (Bld) 84 % High 36 - 65 % [facility] Nucleated RBC/100 WBC (Bld) [Ratio] 0 % 0.0 per 100 WBC [facility] Platelet mean volume (Bld) [Entitic vol] 10.9 fL 8.1 - 13.5 fL [facility] Platelets (Bld) [#/Vol] 411 10*3/uL [facility] RBC (Bld) [#/Vol] 5.56 10*6/uL High 3.95 - 5.1 1 m/uL [facility] Segmented neutrophils/100 WBC (Bld) 14.74 % High [facility] WBC other (Bld) [#/Vol] 17.3 High [facility] CBC with Diffon 04-25-2025 Abs. Basophil 0.08 k/uL Normal 0.00-0.20 [facility] Comment on above: Performed By: #### STANTON GARCIA #### [facility] [address] [place] [address] Lithograph Press Feeder: Christian Hanley MD Abs.Imm.Granulocyte 0.10 k/uL Normal 0.00-0.30 [facility] Comment on above: Performed By: #### STANTON GARCIA #### [facility] [address] [place], [place] [address] Lithograph Press Feeder: Christian Hanley MD Abs.Neutrophil (Seg) 14.74 k/uL High 1.50-8.10 [facility] Comment on above: Performed By: #### U AGATHA UA #### [facility] [address] [place], [facility]83 Lithograph Press Feeder: Christian Hanley MD Basophils/100 WBC (Bld) 1 % Normal 0-2 [facility] Comment on above: Performed By: #### U AGATHA, UA #### [facility] [address] [place], [facility]83 Lithograph Press Feeder: Christian Hanley MD Eosinophils (Bld) [#/Vol] 0.03 10*3/uL Normal 0.00-0.44 [facility] Comment on above: Performed By: #### STANTON GARCIA #### [address] [place], [place] [address] Lithograph Press Feeder: Christian Hanley MD Eosinophils/100 WBC (Bld) 0 % Low 1-4 [facility] Comment on above: Performed By: #### U AGATHA UA #### [address] [place], [facility]83 Lithograph Press Feeder: Christian Hanley MD Erythrocyte distribution width (RBC) [Ratio] 13.1 % Normal 11.8-14.4 [facility] Comment on above: Performed By: #### U BRITTANEYO, UA #### [facility] [address] [place] [address] Dr. [place], [facility]83 Lithograph Press Feeder: Christian Hanley MD Hematocrit (Bld) [Volume fraction] 46.2 % Normal 36.3-47.1 [facility] Comment on above: Performed By: #### U AGATHA UA #### [facility] [address] [place] [address] Dr[address] [place], [facility]83 Lithograph Press Feeder: Christian Hanley MD Hemoglobin (Bld) [Mass/Vol] 16.5 g/dL High 11.9-15.1 [facility] Comment on above: Performed By: #### Christine SNIDER UA #### [facility] [address] [place], [place] [id number] Lithograph Press Feeder: Christian Hanley MD Immature granulocytes/100 WBC (Bld) 1 % High 0 [facility] Comment on above: Performed By: #### Christine SNIDER UA #### [facility] [address] [place] [address] Lithograph Press Feeder: Christian Hanley MD Lymphocytes (Bld) [#/Vol] 1.17 10*3/uL Normal 1.10-3.70 [facility] Comment on above: Performed By: #### Christine SNIDER UA #### [address] [place], [place] [id number] Lithograph Press Feeder: Christian Hanley MD Lymphocytes/100 WBC (Bld) 7 % Low 24-43 [facility] Comment on above: Performed By: #### Christine SNIDER UA #### [address] [place], [place] [address] Lithograph Press Feeder: Christian Hanley MD MCH (RBC) [Entitic mass] 29.7 pg Normal 25.2-33.5 [facility] Comment on above: Performed By: #### Christine SNIDER UA #### [facility] [address] [place] [address] [place] [address] Lithograph Press Feeder: Christian Hanley MD MCHC (RBC) [Mass/Vol] 35.7 g/dL High 28.4-34.8 [facility] Comment on above: Performed By: #### Christine SNIDER UA #### [address] [place], [place] [id number] Lithograph Press Feeder: Christian Hanley MD MCV (RBC) [Entitic vol] 83.1 fL Normal 82.6-102.9 [facility] Comment on above: Performed By: #### U AGATHA, UA #### [facility] [address] [place], [place] [id number] Lithograph Press Feeder: Christian Hanley MD Monocytes (Bld) [#/Vol] 1.20 10*3/uL Normal 0.10-1.20 [facility] Comment on above: Performed By: #### U BRITTANEYO, UA #### [facility] [address] [place], [place] [id number] Lithograph Press Feeder: Christian Hanley MD Monocytes/100 WBC (Bld) 7 % Normal 3-12 [facility] Comment on above: Performed By: #### Christine SNIDER, UA #### [facility] [address] [place], [place] [address] Lithograph Press Feeder: Christian Hanley MD Neutrophil (Seg) 84 % High 36-65 [facility] Comment on above: Performed By: #### U AGATHA, UA #### [facility] [address] [place], [place] [address]783 Lithograph Press Feeder: Christian Hanley MD NRBC Automated 0.0 per 100 WBC Normal 0.0 [facility] Comment on above: Performed By: #### U AGATHA, UA #### [facility] [address] [place], [place] [id number] Lithograph Press Feeder: Christian Hanley MD Platelet mean volume (Bld) [Entitic vol] 10.9 fL Normal 8.1-13.5 [facility] Comment on above: Performed By: #### U AGATHA, UA #### [facility] [address] [place], [place] [id number] Lithograph Press Feeder: Christian Hanley MD Platelets (Bld) [#/Vol] 411 10*3/uL Normal 138-453 [facility] Comment on above: Performed By: #### U AGATHA, UA #### [facility] [address] [place], [place] [address] Lithograph Press Feeder: Christian Hanley MD RBC (Bld) [#/Vol] 5.56 10*6/uL High 3.95-5.11 [facility] Comment on above: Performed By: #### U BRITTANEYO, UA #### [facility] [address] [place], [place] [id number] Lithograph Press Feeder: Christian Hanley MD WBC (Bld) [#/Vol] 17.3 10*3/uL High 3.5-11.3 [facility] Comment on above: Performed By: #### U AGATHA, UA #### [facility] [address] [place] [address] Lithograph Press Feeder: Christian Hanley MD [facility] 04-25-2025 Albumin [Mass/Vol] 5.4 g/dL High 3.5 - 5.2 g/dL [facility] Albumin/Globulin [Mass ratio] 1.4 {ratio} 1.0 - 2.5 [facility] ALP [Catalytic activity/Vol] 97 U/L 35 - 104 U/L [facility] ALT [Catalytic activity/Vol] 216 U/L High 10 - 35 U/L [facility] Anion gap [Moles/Vol] 22 mmol/L High 9 - 16 mmol/L [facility] AST [Catalytic activity/Vol] 90 U/L High 10 - 35 U/L [facility] Bilirubin [Mass/Vol] 1.3 mg/dL High 0.00 - 1.20 mg/dL [facility] Calcium [Mass/Vol] 10.1 mg/dL 8.6 - 10. 4 mg/dL [facility] Chloride [Moles/Vol] 84 mmol/L Low 98 - 10 7 mmol/L [facility] CO2 [Moles/Vol] 29 mmol/L 20 - 31 mmol/L [facility] Creatinine [Mass/Vol] 1.9 mg/dL High 0.50 - 0.90 mg/dL [facility] Est, Glom Filt Rate 38 Low - PINF [facility] Comment on above: These results are not intended for use in patients <18 years of age. eGFR results are calculated without a race factor using the 2020 CKD-EPI equation. Careful clinical correlation is recommended, particularly when comparing to results calculated using previous equations. The CKD-EPI equation is less accurate in patients with extremes of muscle mass, extra-renal metabolism of creatine, excessive creatine ingestion, or following therapy that affects renal tubular secretion. Glucose [Mass/Vol] 110 mg/dL High 74 - 99 mg/dL [facility] Potassium [Moles/Vol] 2.5 mmol/L Critically low 3.7 - 5.3 mmol/L [facility] Protein [Mass/Vol] 9.4 g/dL High 6.6 - 8.7 g/dL [facility] Sodium [Moles/Vol] 135 mmol/L Low 136 - 145 mmol/L [facility] Urea nitrogen [Mass/Vol] 32 mg/dL High 6 - 20 mg/dL [facility] Urea nitrogen/Creatinine [Mass ratio] 17 mg/mg 9 - [address] [facility] [address] Abdomen and Pelvis W cont rast [place] 04-25-2025 Radiology Study observation (narrative) [facility] Comp Metabolic Profon 2024 Albumin [Mass/Vol] 5.4 g/dL High 3.5-5.2 [facility] Comment on above: Performed By: #### U AGATHA, UA #### [facility] [address] [place] [address] Lithograph Press Feeder: Christian Hanley MD Albumin/Glob Ratio 1.4 Normal 1.0-2.5 [facility] Comment on above: Performed By: #### U AGATHA, UA #### [facility] [address] [place] [address] Lithograph Press Feeder: Christian Hanley MD Alkaline Phos 97 U/L Normal 35-104 [facility] Comment on above: Performed By: #### U AGATHA, UA #### [facility] [address] [place], [place] [id number] Lithograph Press Feeder: Christian Hanley MD ALT [Catalytic activity/Vol] 216 U/L High 10-35 [facility] Comment on above: Performed By: #### U BRITTANEYO, UA #### [facility] [address] [place], [place] [id number] Lithograph Press Feeder: Christian Hanley MD Anion gap [Moles/Vol] 22 mmol/L High 9-16 [facility] Comment on above: Performed By: #### U BRITTANEYO, UA #### [facility] [address] [place], [place] [address] Lithograph Press Feeder: Christian Hanley MD AST [Catalytic activity/Vol] 90 U/L High 10-35 [facility] Comment on above: Performed By: #### U AGATHA UA #### [facility] [address] [place], [place] [id number] Lithograph Press Feeder: Christian Hanley MD Bilirubin [Mass/Vol] 1.3 mg/dL High 0.00-1.20 [facility] Comment on above: Performed By: #### U AGATHA UA #### [facility] [address] [place] [address] Lithograph Press Feeder: Christian Hanley MD BUN/CRE Ratio 17 Normal 9-20 [facility] Comment on above: Performed By: #### U AGATHA, UA #### [facility] [address] [place], [place] [id number] Lithograph Press Feeder: Christian Hanley MD Calcium [Mass/Vol] 10.1 mg/dL Normal 8.6-10.4 [facility] Comment on above: Performed By: #### U BRITTANEYO, UA #### [facility] [address] [place] [address] Lithograph Press Feeder: Christian Hanley MD Chloride [Moles/Vol] 84 mmol/L Low 98-107 [facility] Comment on above: Performed By: #### U AGATHA UA #### [facility] [address] [place] [address] Lithograph Press Feeder: Christian Hanley MD CO2 [Moles/Vol] 29 mmol/L Normal 20-31 [facility] Comment on above: Performed By: #### U AGATHA UA #### [facility] [address] [place], [place] [id number] Lithograph Press Feeder: Christian Hanley MD Creatinine [Mass/Vol] 1.9 mg/dL High 0.50-0.90 [facility] Comment on above: Performed By: #### U AGATHA UA #### [facility] [address] [place] [address] Lithograph Press Feeder: Christian Hanley MD GFR/1.73 sq M.predicted among non-blacks MDRD (S/P/Bld) [Vol rate/Area] 38 mL/min/{1.73_m2} Low >60 [facility] Comment on above: Result Comment: These results are not intended for use in patients <18 years of age. eGFR results are calculated without a race factor using the 2020 CKD-EPI equation. Careful clinical correlation is recommended, particularly when comparing to results calculated using previous equations. The CKD-EPI equation is less accurate in patients with extremes of muscle mass, extra-renal metabolism of creatine, excessive creatine ingestion, or following therapy that affects renal tubular secretion. Performed By: #### Christine SNIDER UA #### [facility] [address] [place], [place] [id number] Lithograph Press Feeder: Christian Hanley MD Glucose [Mass/Vol] 110 mg/dL High 74-99 [facility] Comment on above: Performed By: #### U AGATHA UA #### [facility] [address] [place], [place] [address] Lithograph Press Feeder: Christian Hanley MD Potassium [Moles/Vol] 2.5 mmol/L Critically low 3.7-5.3 [facility] Comment on above: Performed By: #### U BRITTANEYO, UA #### [facility] [address] [place], [place] [id number] Lithograph Press Feeder: Christian Hanley MD Protein [Mass/Vol] 9.4 g/dL High 6.6-8.7 [facility] Comment on above: Performed By: #### U BRITTANEYO, UA #### [facility] [address] [place], [place] [address] Lithograph Press Feeder: Christian Hanley MD Sodium [Moles/Vol] 135 mmol/L Low 136-145 [facility] Comment on above: Performed By: #### U AGATHA, UA #### [facility] [address] [place], [place] [id number] Lithograph Press Feeder: Christian Hanley MD Urea nitrogen [Mass/Vol] 32 mg/dL High 6-20 [facility] Comment on above: Performed By: #### U BRITTANEYO, UA #### [facility] [address] [place], [place] [id number] Lithograph Press Feeder: Christian Hanley MD EKG 12 LeadOrdered By: Richard mancera on 04-25-2025 Atrial Rate 130 BPM [employer] Phone: P [place] 57 degrees Fire[employer] Phone: P-R Interval 134 ms [employer] Phone: Q-T Interval 310 ms [facility]: QRS Duration 82 ms [employer] Phone: QTc Calculation (Bazett) 456 ms [employer] Phone: R [place] 107 degrees [employer] Phone: T [place] 16 degrees [employer] Phone: Ventricular Rate 130 BPM [employer] [facility] [employer] Phone: [employer] Phone: EKG 12 Leadon 04-25-2025 Sinus tachycardia Rightward axis Nonspecific ST abnormality Abnormal ECG ECG not diagnostic for Acute Coronary Syndrome; consider clinical findings No previous ECGs available Confirmed by Richard Solis ([id number]) on 04/25/2025 8:17:48 PM [facility] RADIOLOGY Richard Solis MD - 04/25/2025 Sinus tachycardia Rightward axis Nonspecific ST abnormality Abnormal ECG ECG not diagnostic for Acute Coronary Syndrome; consider clinical findings No previous ECGs available Confirmed by Richard Solis ([id number]) on 04/25/2025 8:17:48 PM [facility] HCG Qualitative, Serumon HCG ( test) Ql Negative NEGATIVE [facility] Comment on above: Specimens with hCG l evels near the threshold of the test (25 mIU/mL) may give a negative or indeterminate result. In such cases, another test should be performed with a new specimen in 48-72 hours. If early is suspected clinically in this setting, correlation with quantitative serum b-hCG level is suggested. [facility] HCG Screen, Bloodon 04-25-20 25 HCG Screen, Blood Negative Normal NEG [facility] Comment on above: Result Comment: Spec imens with hCG levels near the threshold of the test (25 mIU/mL) may give a negative or indeterminate result. In such cases, another test should be performed with a new specimen in 48-72 hours. If early is suspected clinically in this setting, correlation with quantitative serum b-hCG level is suggested. Performed By: #### U AGATHA UA #### [facility] [address] [place] [address] Lithograph Press Feeder: Christian Hanley MD Lipaseon 04-25-2025 Lipase [Catalytic activity/Vol] 96 U/L High 13 - 60 U/L [facility] Lipase [Catalytic activity/Vol] 96 U/L High 13-60 [facility] Comment on above: Performed By: #### U AGATHA UA #### [facility] [address] [place] [address] [employer] Press Feeder: Christian Hanley MD Magnesiumon 04-25-2025 Interpretation and review of laboratory results Abnormal [facility] Magnesium [Mass/Vol] 2.9 mg/dL High 1.6 - 2 .6 mg/dL [facility] Magnesium [Mass/Vol] 2.9 mg/dL High 1.6-2.6 [facility] Comment on above: Performed By: #### M G #### [facility] [address] [place] [address] [employer] Press Feeder: Christian Hanley MD Microscopic Urinalysison Epithelial cells LM.HPF (Urine sed) [#/Area] 2 TO 5 [facility] RBC LM.HPF (Urine sed) [#/Area] None [facility] WBC LM.HPF (Urine sed) [#/Area] 0 TO 2 [facility] No Panel Informationon 04-25 Interpretation and review of laboratory results Abnormal [facility] Urinalysison 04-25-2025 Bilirubin Ql (U) Negative NEGATIVE [facility] Clarity (U) Clear Clear [facility] Color (U) Yellow Yellow [facility] Glucose Test strip (U) [Mass/Vol] Negative NEGATIVE mg/dL [facility] Hemoglobin Auto test strip Ql (U) TRACE Abnormal NEGATIVE [facility] Interpretation and review of laboratory results Abnormal [facility] Ketones (U) [Mass/Vol] TRACE Abnormal NEGATIVE mg/dL [facility] Leukocyte esterase Test strip Ql (U) Negative NEGATIVE [facility] Nitrite Ql (U) Negative NEGATIVE [facility] pH (U) 6.5 [pH] 5.0 - 9.0 [facility] Protein (U) [Mass/Vol] Negative NEGATIVE mg/dL [facility] Specific gravity (U) [Rel density] Low 1.010 - 1.020 [facility] Urobilinogen Qn (U) Normal 0.0 - 1. 0 EU/dL [facility] Urinalysis, Routineon 2024 Bilirubin, SemiQt,Ur Negative Normal NEG [facility] Comment on above: Performed By: #### U MICAO, UA #### [facility] [address] [place], [place] [id number] [employer] Feeder: Christian Hanley MD Blood, Urine TRACE Abnormal NEG [facility] Comment on above: Performed By: #### U MICAO, UA #### [facility] [address] [place] [address] [employer] Press Feeder: Christian Hanley MD Clarity (U) Clear Normal CLEAR [facility] Comment on above: Performed By: #### U MICAO, UA #### [facility] [address] [place], [place] [phone] [employer] Press Feeder: Christian Hanley MD Color (U) Yellow Normal YEL [facility] Comment on above: Performed By: #### U MICAO, UA #### [facility] [address] [place], [place] [phone] [employer] Feeder: Christian Hanley MD Glucose Ql (U) Negative Normal NEG [facility] Comment on above: Performed By: #### U MICAO, UA #### [facility] [address] [place], [place] [id number] [employer] Feeder: Christian Hanley MD Ketones Ql (U) TRACE Abnormal NEG [facility] Comment on above: Performed By: #### U MICAO, UA #### [facility] [address] [place], [place] [phone] [employer] Feeder: Christian Hanley MD Leukocyte esterase Test strip Ql (U) Negative Normal NEG [facility] Comment on above: Performed By: #### U MICAO, UA #### [facility] [address] [place], [place] [phone] [employer] Feeder: Christian Hanley MD Nitrite,Ur Negative Normal NEG [facility] Comment on above: Performed By: #### U MICAO, UA #### [facility] [address] [place] [address] Dr. [place], [place] 6292283 [employer] Feeder: Christian Hanley MD PH,Ur 6.5 Normal 5.0-9.0 [facility] Comment on above: Performed By: #### U MICAO, UA #### [facility] [address] [place] [address] Dr[address] [place], [place] [phone] [employer] Feeder: Christian Hanley MD Protein Ql (U) Negative Normal NEG [facility] Comment on above: Performed By: #### U MICAO, UA #### [address] [place], [place] 9597383 [employer] Press Feeder: Christian Hanley MD Spec. [place],Ur <1.005 Low 1.010-1.020 [facility] Comment on above: Performed By: #### U MICAO, UA #### [address] [place], [place] 106[address]83 [employer] Press Feeder: Christian Hanley MD Urobilinogen,Ur Normal Normal 0.0-1.0 [facility] Comment on above: Performed By: #### U MICAO, UA #### [address] [place], [place] [address] Lithograph Press Feeder: Christian Hanley MD Urinalysis,Microon 5 Epithelial cells LM Ql (Urine sed) 2 TO 5 Normal 0-25 [facility] Comment on above: Performed By: #### U MICAO, UA #### [address] [place], [place] 65[address]483 [employer] Press Feeder: Christian Hanley MD Urine RBC's None Normal 0-2 [facility] Comment on above: Performed By: #### U MICAO, UA #### [facility] [address] [place] [address] [place] [address] [employer] Feeder: Christian Hanley MD Urine WBC's 0 TO 2 Normal 0-5 [facility] Comment on above: Performed By: #### U AGATHA, UA #### [facility] [address] [place] [address] [employer] Press Feeder: Christian Hanley MD BASIC METABOLIC PANELon 03-05 Anion gap [Moles/Vol] 11 mmol/L Normal 5-15 [facility] Comment on above: Performed By: #### C BCA, CMP, 1988-02, , 68861-9, 5643- 2, 2157-03 #### [facility] ([id number]) [address] [place] [address] 84349 Calcium [Mass/Vol] 9.4 mg/dL Normal 8.5-10.5 [facility] Comment on above: Performed By: #### C BCA, CMP, 1988-02, , 31211-4, 5643- 2, 2157-03 #### [facility] ([id number]) [address] [place] [address] 91224 Chloride [Moles/Vol] 104 mmol/L Normal 98-109 [facility] Comment on above: Performed By: #### C BCA, CMP, 1988-02, , 47778-4, 5643- 2, 2157-03 #### [facility] ([id number]) [address] [place] [address] 15817 CO2 [Moles/Vol] 24 mmol/L Normal 22-32 [facility] Comment on above: Performed By: #### C BCA, CMP, 1988-02, , 19766-6, 5643- 2, 2157-03 #### [facility] ([id number]) [address] [place] [address] 88418 Creatinine [Mass/Vol] 0.91 mg/dL Normal 0.40-1.00 [facility] Comment on above: Result Comment: METH OD TRACEABLE TO IDMS STANDARD Performed By: #### C SYED LEI, 1988-02, , 56367-0, 5643-2, 2157-03 #### [facility] ([id number]) [address] [place] [address] 56428 GFR/1.73 sq M.predicted among non-blacks MDRD (S/P/Bld) [Vol rate/Area] 90 mL/min/{1.73_m2} Normal >=60 [facility] Comment on above: Result Comment: Repo rted eGFR is based on the CKD-EPI 2020 equation that does not use a race coefficient. Performed By: #### C SYED LEI, 1988-02, , 53597-7, 5642-11, 2157-03 #### [facility] ([id number]) [address] [place] [address] 27494 Glucose [Mass/Vol] 89 mg/dL Normal 65-99 [facility] Comment on above: Performed By: #### C SYED LEI, 1988-02, , 84725-1, 5642- 2, 2157-03 #### [facility] ([id number]) [address] [place] [address] 99477 Potassium [Moles/Vol] 4.2 mmol/L Normal 3.5-5.0 [facility] Comment on above: Performed By: #### C SYED LEI, 1988-02, , 35596-0, 5642- 2, 2157-03 #### [facility] ([id number]) [address] [place] [address] 04222 Sodium [Moles/Vol] 139 mmol/L Normal 134-146 [facility] Comment on above: Performed By: #### C SYED LEI, 1988-02, , 45304-9, 5643- 2, 2157-03 #### [facility] ([id number]) [address] [place] [address] 98839 Urea nitrogen [Mass/Vol] 18 mg/dL Normal - [facility] Comment on above: Performed By: #### C BCA, CMP, 1988-02, , 90704-5, , 2157-03 #### [facility] ([id number]) [address] [place] [address] 16366 LEVETIRACETAM, Son 5 LEVETIRACETAM, S 29.6 mcg/mL Normal 10.0-40.0 [facility] Comment on above: Result Comment: ADDITIONAL INFORMATION This test was developed and its performance characteristics determined by [facility] in a manner consistent with CLIA requirements. This test has not been cleared or approved by the U.S. Food and Drug Administration. Test Performed by: [facility] [place] [address] Lithograph Press Feeder: Ulysses Juarez Ph.D.; CLIA# [id number] Performed By: #### C BCA, CMP, 1988-02, , 09831-8, 5642-11, 2157-03 #### [facility] ([id number]) [address] [place] [address] 77671 BASIC METABOLIC PANELon 02-03 Anion gap [Moles/Vol] 9 mmol/L Normal 5-15 [facility] Comment on above: Performed By: #### C BCA, CMP, 1988-02, , 87732-6, 5643- 2, 2157-03 #### [facility] ([id number]) [address] [place] [address] 26288 Calcium [Mass/Vol] 7.8 mg/dL Low 8.5-10.5 [facility] Comment on above: Performed By: #### C SYED LEI, 1988-02, , 23462-0, 5642- 2, 2157-03 #### [facility] ([id number]) [address] [place] [address] 15211 Chloride [Moles/Vol] 98 mmol/L Normal 98-109 [facility] Comment on above: Performed By: #### C SYED LEI, 1988-02, , 31089-5, 2, 2157-03 #### [facility] ([id number]) [address] [place] [address] 64230 CO2 [Moles/Vol] 27 mmol/L Normal 22-32 [facility] Comment on above: Performed By: #### C SYED LEI, 1988-02, , 02807-0, 2, 2157-03 #### [facility] ([id number]) [address] [place] [address] 42280 Creatinine [Mass/Vol] 1.75 mg/dL High 0.40-1.00 [facility] Comment on above: Result Comment: METH OD TRACEABLE TO IDMS STANDARD Performed By: #### C SYED LEI, 1988-02, , 93751-2, 2, 2157-03 #### [facility] ([id number]) [address] [place] [address] 24994 GFR/1.73 sq M.predicted among non-blacks MDRD (S/P/Bld) [Vol rate/Area] 41 mL/min/{1.73_m2} Low >=60 [facility] Comment on above: Result Comment: Repo rted eGFR is based on the CKD-EPI 2020 equation that does not use a race coefficient. Performed By: #### C QUIQUE CMP, 1988-02, 13157-9, 33705-3, 5643-2, 2157-03 #### [facility] ([id number]) [address] [place] [address] 14220 Glucose [Mass/Vol] 91 mg/dL Normal 65-99 [facility] Comment on above: Performed By: #### C QUIQUE, CMP, 1988-02, , 78683-3, 5643- 2, 2157-03 #### [facility] ([id number]) [address] [place] [address] 72278 Potassium [Moles/Vol] 3.1 mmol/L Low 3.5-5.0 [facility] Comment on above: Performed By: #### C QUIQUE, CMP, 1988-02, , 38064-2, 5642- 2, 2157-03 #### [facility] ([id number]) [address] [place] [address] 33853 Sodium [Moles/Vol] 134 mmol/L Normal 134-146 [facility] Comment on above: Performed By: #### C QUIQUE, CMP, 1988-02, , 70763-4, 5642- 2, 2157-03 #### [facility] ([id number]) [address] [place] [address] 43203 Urea nitrogen [Mass/Vol] 21 mg/dL Normal 5-23 [facility] Comment on above: Performed By: #### C BCA, CMP, 1988-02, , 12443-6, 5643- 2, 2157-03 #### [facility] ([id number]) [address] [place] [address] 05920 CBC WITH AUTO DIFFERENTIALon 03-01-2025 BASOPHILS ABSOLUTE COUNT (10*3/UL) BY AUTOMATED COUNT 0.1 10*3/uL Normal 0.0-0.2 [facility] Comment on above: Performed By: #### C BCA, CMP, 1988-02, , 34613-1, 5643- 2, 2157-03 #### [facility] ([id number]) [address] [place] [address] 63318 BASOPHILS RELATIVE PERCENT BY AUTOMATED COUNT 0.5 % Normal [facility] Comment on above: Performed By: #### C QUIQUE, [facility], 1988-02, , 61613-7, 43- 2, 2157-03 #### [facility] ([id number]) [address] [place] [address] 09873 CELLAVISION DIFFERENTIAL TYPE AUTOMATED DIFFERENTIAL Normal [facility] Comment on above: Performed By: #### C QUIQUE [facility], 1988-02, , 98074-7, 5642- 2, 2157-03 #### [facility] ([id number]) [address] [place] [address] 65788 Eosinophils (Bld) [#/Vol] 0.1 10*3/uL Normal 0.0-0.4 [facility] Comment on above: Performed By: #### C QUIQUE [facility], 1988-02, , 58679-0, 5642- 2, 2157-03 #### [facility] ([id number]) [address] [place] [address] 88002 EOSINOPHILS RELATIVE PERCENT BY AUTOMATED COUNT 0.6 % Normal [facility] Comment on above: Performed By: #### C QUIQUE [facility], 1988-02, , 57359-8, 5642- 2, 2157-03 #### [facility] ([id number]) [address] [place] [address] 23892 Erythrocyte distribution width (RBC) [Ratio] 13.2 % Normal 11.5-15 [facility] Comment on above: Performed By: #### Dhruv LEI, [facility], 1988-02, , 06555-0, 5643- 2, 2157-03 #### [facility] ([id number]) [address] [place] [address] 23511 Hematocrit (Bld) [Volume fraction] 45.2 % Normal 35-47 [facility] Comment on above: Performed By: #### C SYED LEI, 1988-02, , 35512-3, 5643- 2, 2157-03 #### [facility] ([id number]) [address] [place] [address] 75446 Hemoglobin (Bld) [Mass/Vol] 15.7 g/dL High 11.7-15.5 [facility] Comment on above: Performed By: #### C SYED LEI, 1988-02, , 20605-4, 5643- 2, 2157-03 #### [facility] ([id number]) [address] [place] [address] 94210 LYMPHOCYTES ABSOLUTE COUNT (10*3/UL) BY AUTOMATED COUNT 2.7 10*3/uL Normal 1.0-3.5 [facility] Comment on above: Performed By: #### C SYED LEI, 1988-02, , 10292-7, 5642- 2, 2157-03 #### [facility] ([id number]) [address] [place] [address] 50222 LYMPHOCYTES RELATIVE PERCENT BY AUTOMATED COUNT 19.3 % Normal [facility] Comment on above: Performed By: #### C SYED LEI, 1988-02, , 47671-4, 56- 2, 2157-03 #### [facility] ([id number]) [address] [place] [address] 89716 MCH (RBC) [Entitic mass] 29.2 pg Normal 27-34 [facility] Comment on above: Performed By: #### C SYED LEI, 1988-02, , 31029-3, 5643- 2, 2157-03 #### [facility] ([id number]) [address] [place] [address] 98444 MCHC (RBC) [Mass/Vol] 34.8 g/dL Normal 32-36 [facility] Comment on above: Performed By: #### C QUIQUE, CMP, 1988-02, , 08718-0, 5643- 2, 2157-03 #### [facility] ([id number]) [address] [place] [address] 95875 MCV (RBC) [Entitic vol] 84 fL Normal 80-100 [facility] Comment on above: Performed By: #### C QUIQUE, CMP, 1988-02, , 51679-8, 56- 2, 2157-03 #### [facility] ([id number]) [address] [place] [address] 92803 MONOCYTES ABSOLUTE COUNT (10*3/UL) BY AUTOMATED COUNT 1.4 10*3/uL High 0.0-0.9 [facility] Comment on above: Performed By: #### C QUIQUE, CMP, 1988-02, , 21133-2, 5642- 2, 2157-03 #### [facility] ([id number]) [address] [place] [address] 32977 MONOCYTES RELATIVE PERCENT BY AUTOMATED COUNT 10.3 % Normal [facility] Comment on above: Performed By: #### C QUIQUE, CMP, 1988-02, , 53102-7, 5643- 2, 2157-03 #### [facility] ([id number]) [address] [place] [address] 00603 NEUTROPHILS ABSOLUTE COUNT BY AUTOMATED COUNT 9.7 10*3/uL High 1.5-6.6 [facility] Comment on above: Performed By: #### C QUIQUE, CMP, 1988-02, , 66371-6, 5643- 2, 2157-03 #### [facility] ([id number]) [address] [place] [address] 70714 NEUTROPHILS RELATIVE PERCENT BY AUTOMATED COUNT 69.3 % Normal [facility] Comment on above: Performed By: #### C SYED LEI, 1988-02, 71305-4, 50156-5, 5643- 2, 2157-03 #### [facility] ([id number]) [address] [place] [address] 84352 Platelet mean volume (Bld) [Entitic vol] 8.2 fL Normal 7-12 [facility] Comment on above: Performed By: #### C SYED LEI, 1988-02, , 05491-8, 56- 2, 2157-03 #### [facility] ([id number]) [address] [place] [address] 37299 Platelets (Bld) [#/Vol] 492 10*3/uL High 150-450 [facility] Comment on above: Performed By: #### C SYED LEI, 1988-02, , 24617-6, 5643- 2, 2157-03 #### [facility] ([id number]) [address] [place] [address] 90476 RBC COUNT 5.39 X10E12/L High 3.8-5.2 [facility] Comment on above: Performed By: #### Dhruv LEI [facility], 1988-02, , 20044-4, 5643- 2, 2157-03 #### [facility] ([id number]) [address] [place] [address] 88754 WBC (Bld) [#/Vol] 14.0 10*3/uL High 4-11 [facility] Comment on above: Performed By: #### Dhruv LEI CMP, 1988-02, , 32984-3, 5643- 2, 2157-03 #### [facility] ([id number]) [address] [place] [address] 66995 CK TOTALon 03-01-2025 CPK 207 U/L High 24-170 [facility] Comment on above: Performed By: #### C BCA, CMP, 1988-02, , 89858-8, 5643- 2, 2157-03 #### [facility] ([id number]) [address] [place] [address] 82468 COMPREHENSIVE METABOLIC PANE Elvin 03-01-2025 Albumin [Mass/Vol] 5.7 g/dL High 3.2-5.3 [facility] Comment on above: Performed By: #### C BCA, CMP, 1988-02, , 00148-7, 2, 2157-03 #### [facility] ([id number]) [address] [place] [address] 42665 ALP [Catalytic activity/Vol] 85 U/L Normal 39-130 [facility] Comment on above: Performed By: #### C BCA, CMP, 1988-02, , 25206-0, 5642- 2, 2157-03 #### [facility] ([id number]) [address] [place] [address] 81140 ALT [Catalytic activity/Vol] 32 U/L High <=31 [facility] Comment on above: Performed By: #### C BCA, CMP, 1988-02, , 35165-8, 5643- 2, 2157-03 #### [facility] ([id number]) [address] [place] [address] 46146 Anion gap [Moles/Vol] 18 mmol/L High 5-15 [facility] Comment on above: Performed By: #### C BCA, CMP, 1988-02, , 37520-4, 5643- 2, 2157-03 #### [facility] ([id number]) [address] [place] [address] AST [Catalytic activity/Vol] 27 U/L Normal <=41 [facility] Comment on above: Performed By: #### C BCA, CMP, 1988-02, , 43849-0, 43- 2, 2157-03 #### [facility] ([id number]) [address] [place] [address] 88553 Bilirubin [Mass/Vol] 1.1 mg/dL Normal 0.3-1.2 [facility] Comment on above: Performed By: #### C BCA, [facility], 1988-02, , 68826-8, 2, 2157-03 #### [facility] ([id number]) [address] [place] [address] 10079 Calcium [Mass/Vol] 10.1 mg/dL Normal 8.5-10.5 [facility] Comment on above: Performed By: #### C BCA, [facility], 1988-02, , 44815-7, 2, 2157-03 #### [facility] ([id number]) [address] [place] [address] 85059 Chloride [Moles/Vol] 86 mmol/L Low 98-109 [facility] Comment on above: Performed By: #### C BCA, [facility], 1988-02, , 04382-9, 2, 2157-03 #### [facility] ([id number]) [address] [place] [address] 80450 CO2 [Moles/Vol] 30 mmol/L Normal 22-32 [facility] Comment on above: Performed By: #### C BCA, CMP, 1988-02, , 68054-1, 43- 2, 2157-03 #### [facility] ([id number]) [address] [place] [address] 41723 Creatinine [Mass/Vol] 2.38 mg/dL High 0.40-1.00 [facility] Comment on above: Result Comment: METH OD TRACEABLE TO IDMS STANDARD Performed By: #### C SYED LEI, 1988-02, , 82848-2, 43-2, 2157-03 #### [facility] ([id number]) [address] [place] [address] 70771 GFR/1.73 sq M.predicted among non-blacks MDRD (S/P/Bld) [Vol rate/Area] 29 mL/min/{1.73_m2} Low >=60 [facility] Comment on above: Result Comment: Repo rted eGFR is based on the CKD-EPI 2020 equation that does not use a race coefficient. Performed By: #### C SYED LEI, 1988-02, , 70426-9, 5642-11, 2157-03 #### [facility] ([id number]) [address] [place] [address] 99542 Glucose [Mass/Vol] 110 mg/dL High 65-99 [facility] Comment on above: Performed By: #### C SYED LEI, 1988-02, , 30148-9, , 2157-03 #### [facility] ([id number]) [address] [place] [address] 00119 Potassium [Moles/Vol] 2.8 mmol/L Low 3.5-5.0 [facility] Comment on above: Performed By: #### C SYED LEI, 1988-02, , 67796-6, 5642- 2, 2157-03 #### [facility] ([id number]) [address] [place] [address] 65175 Protein [Mass/Vol] 9.9 g/dL High 6.0-8.0 [facility] Comment on above: Performed By: #### C SYED LEI, 1988-02, , 68082-5, 5643- 2, 2157-03 #### [facility] ([id number]) [address] [place] [address] 97170 Sodium [Moles/Vol] 134 mmol/L Normal 134-146 [facility] Comment on above: Performed By: #### C QUIQUE, CMP, 1988-02, , 91620-9, 5643- 2, 2157-03 #### [facility] ([id number]) [address] [place] [address] 73195 Urea nitrogen [Mass/Vol] 26 mg/dL High 5-23 [facility] Comment on above: Performed By: #### C SYED LEI, 1988-02, , 45891-8, 5642- 2, 2157-03 #### [facility] ([id number]) [address] [place] [address] 85891 MAGNESIUMon 03-01-2025 Magnesium [Mass/Vol] 2.5 mg/dL Normal 1.8-2.6 [facility] Comment on above: Performed By: #### C QUIQUE, CMP, 1988-02, , 71177-1, 5642- 2, 2157-03 #### [facility] ([id number]) [address] [place] [address] 06013 MYOGLOBIN, SERUMon SERUM MYOGLOBIN 72.3 ng/mL High 14.3-65.8 [facility] Comment on above: Performed By: #### C QUIQUE, CMP, 1988-02, , 06036-5, 5642- 2, 2157-03 #### [facility] ([id number]) [address] [place] [address] 87405 CBC WITH AUTO DIFFERENTIALon 02-23-2025 BASOPHILS ABSOLUTE COUNT (10*3/UL) BY AUTOMATED COUNT 0.1 10*3/uL Normal 0.0-0.2 [facility] Comment on above: Performed By: #### C QUIQUE, SYED, 1988-02, , 88530-3, 5643- 2, 2157-03 #### [facility] ([id number]) [address] [place] [address] 85737 BASOPHILS RELATIVE PERCENT BY AUTOMATED COUNT 0.5 % Normal [facility] Comment on above: Performed By: #### C QUIQUE, [facility], 1988-02, , 19512-0, 5642- 2, 2157-03 #### [facility] ([id number]) [address] [place] [address]323 CELLAVISION DIFFERENTIAL TYPE AUTOMATED DIFFERENTIAL Normal [facility] Comment on above: Performed By: #### C SYED LEI, 1988-02, , 82022-9, , 2157-03 #### [facility] ([id number]) [address] [place] [address] 09620 Eosinophils (Bld) [#/Vol] 0.1 10*3/uL Normal 0.0-0.4 [facility] Comment on above: Performed By: #### C SYED LEI, 1988-02, , 79072-7, 2, 2157-03 #### [facility] ([id number]) [address] [place] [address] 74307 EOSINOPHILS RELATIVE PERCENT BY AUTOMATED COUNT 0.7 % Normal [facility] Comment on above: Performed By: #### C SYED LEI, 1988-02, , 31665-8, 5642- , 2157-03 #### [facility] ([id number]) [address] [place] [address] 22277 Erythrocyte distribution width (RBC) [Ratio] 13.0 % Normal 11.5-15 [facility] Comment on above: Performed By: #### C SYED LIE, 1988-02, , 10090-2, 5643- 2, 2157-03 #### [facility] ([id number]) [address] [place] [address] 90110 Hematocrit (Bld) [Volume fraction] 37.0 % Normal 35-47 [facility] Comment on above: Performed By: #### C QUIQUE, [facility], 1988-02, , 47197-9, 5643- 2, 2157-03 #### [facility] ([id number]) [address] [place] [address] 99908 Hemoglobin (Bld) [Mass/Vol] 12.6 g/dL Normal 11.7-15.5 [facility] Comment on above: Performed By: #### C QUIQUE [facility], 1988-02, , 43739-8, 5642- 2, 2157-03 #### [facility] ([id number]) [address] [place] [address] 76219 LYMPHOCYTES ABSOLUTE COUNT (10*3/UL) BY AUTOMATED COUNT 1.4 10*3/uL Normal 1.0-3.5 [facility] Comment on above: Performed By: #### C SYED LEI, 1988-02, , 48515-8, 5642- 2, 2157-03 #### [facility] ([id number]) [address] [place] [address] 41385 LYMPHOCYTES RELATIVE PERCENT BY AUTOMATED COUNT 11.3 % Normal [facility] Comment on above: Performed By: #### C QUIQUE, CMP, 1988-02, , 13362-6, 5642- 2, 2157-03 #### [facility] ([id number]) [address] [place] [address] 48903 MCH (RBC) [Entitic mass] 29.0 pg Normal 27-34 [facility] Comment on above: Performed By: #### C BCA, CMP, 1988-02, , 57272-9, 5643- 2, 2157-03 #### [facility] ([id number]) [address] [place] [address] MCHC (RBC) [Mass/Vol] 34.1 g/dL Normal 32-36 [facility] Comment on above: Performed By: #### C QUIQUE, CMP, 1988-02, , 06810-9, 5643- 2, 2157-03 #### [facility] ([id number]) [address] [place] [address] 14644 MCV (RBC) [Entitic vol] 85 fL Normal 80-100 [facility] Comment on above: Performed By: #### C QUIQUE, CMP, 1988-02, , 28976-5, 5642- 2, 2157-03 #### [facility] ([id number]) [address] [place] [address] 36897 MONOCYTES ABSOLUTE COUNT (10*3/UL) BY AUTOMATED COUNT 0.7 10*3/uL Normal 0.0-0.9 [facility] Comment on above: Performed By: #### C QUIQUE, CMP, 1988-02, , 52079-5, , 2157-03 #### [facility] ([id number]) [address] [place] [address] 27880 MONOCYTES RELATIVE PERCENT BY AUTOMATED COUNT 5.5 % Normal [facility] Comment on above: Performed By: #### C QUIQUE, CMP, 1988-02, , 11614-4, 43- 2, 2157-03 #### [facility] ([id number]) [address] [place] [address] 84929 NEUTROPHILS ABSOLUTE COUNT BY AUTOMATED COUNT 10.4 10*3/uL High 1.5-6.6 [facility] Comment on above: Performed By: #### C QUIQUE, CMP, 1988-02, , 44029-3, 5643- 2, 2157-03 #### [facility] ([id number]) [address] [place] [address] 07239 NEUTROPHILS RELATIVE PERCENT BY AUTOMATED COUNT 82.0 % Normal [facility] Comment on above: Performed By: #### Dhruv LEI CMP, 1988-02, , 67015-6, 5643- 2, 2157-03 #### [facility] ([id number]) [address] [place] [address] 37676 Platelet mean volume (Bld) [Entitic vol] 7.8 fL Normal 7-12 [facility] Comment on above: Performed By: #### Dhruv LEI CMP, 1988-02, , 66633-9, 5643- 2, 2157-03 #### [facility] ([id number]) [address] [place] [address] 17145 Platelets (Bld) [#/Vol] 373 10*3/uL Normal 150-450 [facility] Comment on above: Performed By: #### Dhruv LEI CMP, 1988-02, , 30442-0, 5643- 2, 2157-03 #### [facility] ([id number]) [address] [place] [address] 94491 RBC COUNT 4.35 X10E12/L Normal 3.8-5.2 [facility] Comment on above: Performed By: #### Dhruv LEI CMP, 1988-02, , 60283-2, 5643- 2, 2157-03 #### [facility] ([id number]) [address] [place] [address] 86058 WBC (Bld) [#/Vol] 12.7 10*3/uL High 4-11 [facility] Comment on above: Performed By: #### Dhruv LEI CMP, 1988-02, , 92368-9, 5643- 2, 2157-03 #### [facility] ([id number]) [address] [place] [address] 35915 COMPREHENSIVE METABOLIC PANE Elvin 02-23-2025 Albumin [Mass/Vol] 4.4 g/dL Normal 3.2-5.3 [facility] Comment on above: Performed By: #### C BCA, CMP, 1988-02, , 57677-7, 5643- 2, 2157-03 #### [facility] ([id number]) [address] [place] [address] 21311 ALP [Catalytic activity/Vol] 71 U/L Normal 39-130 [facility] Comment on above: Performed By: #### C BCA, CMP, 1988-02, , 00187-5, 43- 2, 2157-03 #### [facility] ([id number]) [address] [place] [address] 51661 ALT [Catalytic activity/Vol] 24 U/L Normal <=31 [facility] Comment on above: Performed By: #### C BCA, CMP, 1988-02, , 89733-8, 43- 2, 2157-03 #### [facility] ([id number]) [address] [place] [address] 32220 Anion gap [Moles/Vol] 9 mmol/L Normal 5-15 [facility] Comment on above: Performed By: #### C BCA, CMP, 1988-02, , 14811-7, 5643- 2, 2157-03 #### [facility] ([id number]) [address] [place] [address] 29637 AST [Catalytic activity/Vol] 20 U/L Normal <=41 [facility] Comment on above: Performed By: #### C BCA, CMP, 1988-02, , 63985-8, 5643- 2, 2157-03 #### [facility] ([id number]) [address] [place] [address] 29547 Bilirubin [Mass/Vol] 0.6 mg/dL Normal 0.3-1.2 [facility] Comment on above: Performed By: #### C BCA, CMP, 1988-02, , 89981-5, 2, 2157-03 #### [facility] ([id number]) [address] [place] [address] 32080 Calcium [Mass/Vol] 9.2 mg/dL Normal 8.5-10.5 [facility] Comment on above: Performed By: #### C BCA, CMP, 1988-02, , 49259-5, , 2157-03 #### [facility] ([id number]) [address] [place] [address] 85317 Chloride [Moles/Vol] 103 mmol/L Normal 98-109 [facility] Comment on above: Performed By: #### C BCA, CMP, 1988-02, , 59013-3, , 2157-03 #### [facility] ([id number]) [address] [place] [address] 66216 CO2 [Moles/Vol] 25 mmol/L Normal 22-32 [facility] Comment on above: Performed By: #### C BCA, CMP, 1988-02, , 58606-9, 2, 2157-03 #### [facility] ([id number]) [address] [place] [address] 47811 Creatinine [Mass/Vol] 0.90 mg/dL Normal 0.40-1.00 [facility] Comment on above: Result Comment: METH OD TRACEABLE TO IDMS STANDARD Performed By: #### C BCA, CMP, 1988-02, , 80916-7, 5643-2, 2157-03 #### [facility] ([id number]) [address] [place] [address] 32974 EGFR (CKD-EPI) NON-RACE DEPENDENT >^90 Normal >=60 [facility] Comment on above: Result Comment: eGFR not reported due to non-numeric value for Creatinine. Reported eGFR is based on the CKD-EPI 2020 equation that does not use a race coefficient. Performed By: #### C SYED LEI, 1988-02, , 32769-7, 2, 2157-03 #### [facility] ([id number]) [address] [place] [address] 67643 Glucose [Mass/Vol] 97 mg/dL Normal 65-99 [facility] Comment on above: Performed By: #### C SYED LEI, 1988-02, , 67584-1, , 2157-03 #### [facility] ([id number]) [address] [place] [address] 55968 Potassium [Moles/Vol] 4.0 mmol/L Normal 3.5-5.0 [facility] Comment on above: Performed By: #### C SYED LEI, 1988-02, , 48289-4, , 2157-03 #### [facility] ([id number]) [address] [place] [address] 36248 Protein [Mass/Vol] 8.1 g/dL High 6.0-8.0 [facility] Comment on above: Performed By: #### C SYED LEI, 1988-02, , 52910-6, , 2157-03 #### [facility] ([id number]) [address] [place] [address] 38341 Sodium [Moles/Vol] 137 mmol/L Normal 134-146 [facility] Comment on above: Performed By: #### C SYED LEI, 1988-02, , 72330-9, 5643- 2, 2157-03 #### [facility] ([id number]) [address] [place] [address] 12158 Urea nitrogen [Mass/Vol] 12 mg/dL Normal 5-23 [facility] Comment on above: Performed By: #### C BCA, CMP, 1988-02, , 00062-5, 5643- 2, 2157-03 #### [facility] ([id number]) [address] [place] [address] 19964 LIPASEon 02-23-2025 Lipase [Catalytic activity/Vol] 27 U/L Normal 17-40 [facility] Comment on above: Performed By: #### C BCA, CMP, 1988-02, , 46106-0, 56- 2, 2157-03 #### [facility] ([id number]) [address] [place] [address] 29900 POCT NURSING URINE MACROSCOP IC UAon 02-23-2025 BILIRUBIN KRISTA Negative Normal Negative [facility] Comment on above: Performed By: #### C BCA, CMP, 1988-02, , 20986-7, 5642- 2, 2157-03 #### [facility] ([id number]) [address] [place] [address] 90657 BLOOD/HGB KRISTA Negative Normal Negative [facility] Comment on above: Performed By: #### C BCA, CMP, 1988-02, , 79179-5, 5643- 2, 2157-03 #### [facility] ([id number]) [address] [place] [address] 30158 GLUCOSE KRISTA Negative Normal Negative [facility] Comment on above: Performed By: #### C BCA, CMP, 1988-02, , 30334-1, 5643- 2, 2157-03 #### [facility] ([id number]) [address] [place] [address] 91174 KETONES KRISTA Negative Normal Negative [facility] Comment on above: Performed By: #### C QUIQUE, [facility], 1988-02, , 43810-3, 5643- 2, 2157-03 #### [facility] ([id number]) [address] [place] [address] 56857 LEUKOCYTE ESTERASE KRISTA Negative Normal Negative [facility] Comment on above: Performed By: #### C QUIQUE, [facility], 1988-02, , 69016-6, 5642- , 2157-03 #### [facility] ([id number]) [address] [place] [address] 78557 NITRITE KRISTA Negative Normal Negative [facility] Comment on above: Performed By: #### C QUIQUE, [facility], 1988-02, , 72820-8, 5642- , 2157-03 #### [facility] ([id number]) [address] [place] [address] 87173 PH KRISTA 7.0 Normal 5.0, 6.0, 6.5, 7.0, 7.5, 8.0, 8.5, 5.5 [facility] Comment on above: Performed By: #### C QUIQUE, [facility], 1988-02, , 15936-7, 5642- 2, 2157-03 #### [facility] ([id number]) [address] [place] [address] 83010 PROTEIN KRISTA Trace Abnormal Negative [facility] Comment on above: Performed By: #### C QUIQUE, [facility], 1988-02, , 82721-0, 43- 2, 2157-03 #### [facility] ([id number]) [address] [place] [address] 66749 SPECIFIC GRAVITY KRISTA 1.020 Normal 1.010, 1.015, 1.020, 1.025 [facility] Comment on above: Performed By: #### C BCA, CMP, 1988-02, , 78593-8, 5643- 2, 2157-03 #### [facility] ([id number]) [address] [place] [address] 76109 UROBILINOGEN KRISTA 0.2 E.U./dL Normal [facility] Comment on above: Performed By: #### C BCA, CMP, 1988-02, , 89424-1, 5642- 2, 2157-03 #### [facility] ([id number]) [address] [place] [address] 24122 POCT , URINE (NUCG) on 02-23-2025 Beta HCG ( test) Ql (U) Negative Normal Negative [facility] Comment on above: Performed By: #### C BCA, CMP, 1988-02, , 33325-7, 5642- 2, 2157-03 #### [facility] ([id number]) [address] [place] [address] 33077 BASIC METABOLIC PANLon 11-23 Anion gap [Moles/Vol] 11 mmol/L Normal 5-15 [facility] Comment on above: Performed By: #### C BCA, CMP, 1988-02, , 39578-8, 5643- 2, 2157-03 #### [facility] ([id number]) [address] [place] [address] 48269 Calcium [Mass/Vol] 9.6 mg/dL Normal 8.5-10.5 [facility] Comment on above: Performed By: #### C BCA, CMP, 1988-02, , 70598-3, 5643- 2, 2157-03 #### [facility] ([id number]) [address] [place] [address] 59282 Chloride [Moles/Vol] 99 mmol/L Normal 98-109 [facility] Comment on above: Performed By: #### C SYED LEI, 1988-02, , 16962-6, 5643- 2, 2157-03 #### [facility] ([id number]) [address] [place] [address] 92709 CO2 [Moles/Vol] 30 mmol/L Normal 22-32 [facility] Comment on above: Performed By: #### C SYED LEI, 1988-02, , 76532-9, 5642- 2, 2157-03 #### [facility] ([id number]) [address] [place] [address] 35832 Creatinine [Mass/Vol] 1.21 mg/dL High 0.40-1.00 [facility] Comment on above: Result Comment: METH OD TRACEABLE TO IDMS STANDARD Performed By: #### C SYED LEI, 1988-02, , 27102-7, 5642-2, 2157-03 #### [facility] ([id number]) [address] [place] [address] 25855 GFR/1.73 sq M.predicted among non-blacks MDRD (S/P/Bld) [Vol rate/Area] 64 mL/min/{1.73_m2} Normal >59 [facility] Comment on above: Result Comment: Reported eGFR is based on the CKD-EPI 2020 equation that does not use a race coefficient. Performed By: #### C QUIQUE, SYED, 1988-02, , 95969-1, 56-2, 2157-03 #### [facility] ([id number]) [address] [place] [address] 07820 Glucose [Mass/Vol] 81 mg/dL Normal 65-99 [facility] Comment on above: Performed By: #### C SYED LEI, 1988-02, , 22219-9, 5643- 2, 2157-03 #### [facility] ([id number]) [address] [place] [address] 59619 Potassium [Moles/Vol] 4.4 mmol/L Normal 3.5-5.0 [facility] Comment on above: Performed By: #### C BCA, CMP, 1988-02, , 01370-2, 5643- 2, 2157-03 #### [facility] ([id number]) [address] [place] [address] 05056 Sodium [Moles/Vol] 140 mmol/L Normal 134-146 [facility] Comment on above: Performed By: #### C BCA, CMP, 1988-02, , 07589-8, 5642- 2, 2157-03 #### [facility] ([id number]) [address] [place] [address] 74620 Urea nitrogen [Mass/Vol] 18 mg/dL Normal 5-23 [facility] Comment on above: Performed By: #### C BCA, CMP, 1988-02, , 60171-6, 5642- 2, 2157-03 #### [facility] ([id number]) [address] [place] [address] 19574 CK [Catalytic activity/Vol]o n 11-23-2024 CPK 443 U/L High 24-170 [facility] Comment on above: Performed By: #### C BCA, CMP, 1988-02, , 48332-8, 5643- 2, 2157-03 #### [facility] ([id number]) [address] [place] [address] 38192 CBC AND AUTO DIFFon 11-12-19 25 Band form neutrophils/100 WBC (Bld) 2.0 % Normal [facility] Comment on above: Performed By: #### C BCA, CMP #### [facility] ([id number]) [address] [place] [address] Eosinophils (Bld) [#/Vol] 0.7 10*3/uL High 0.0-0.4 [facility] Comment on above: Performed By: #### C BCA, CMP #### [facility] ([id number]) [address] [address] [place] [address] Eosinophils/100 WBC (Bld) 6.9 % Normal [facility] Comment on above: Performed By: #### C QUIQUE, CMP #### [facility] ([id number]) [address] [address] [place] [address] Erythrocyte distribution width (RBC) [Ratio] 13.6 % Normal 11.5-15.0 [facility] Comment on above: Performed By: #### C QUIQUE, CMP #### [facility] ([id number]) [address] [address] [place] [address] Hematocrit (Bld) [Volume fraction] 34.6 % Low 35-47 [facility] Comment on above: Performed By: #### C QUIQUE, CMP #### [facility] ([id number]) [address] [address] [place] [address] Hemoglobin (Bld) [Mass/Vol] 11.6 g/dL Low 11.7-15.5 [facility] Comment on above: Performed By: #### C BCA, CMP #### [facility] ([id number]) [address] [place] [address] Lymphocytes (Bld) [#/Vol] 3.3 10*3/uL Normal 1.0-3.5 [facility] Comment on above: Performed By: #### C BCA, CMP #### [facility] ([id number]) [address], [address] [place] [address] Lymphocytes/100 WBC (Bld) 31.7 % Normal [facility] Comment on above: Performed By: #### C BCA, CMP #### [facility] ([id number]) [address], [address] [place] [address] MCH (RBC) [Entitic mass] 30.3 pg Normal 27-34 [facility] Comment on above: Performed By: #### C BCA, CMP #### [facility] ([id number]) [address], [address] [place] [address] MCHC (RBC) [Mass/Vol] 33.6 g/dL Normal 32-36 [facility] Comment on above: Performed By: #### C QUIQUE, CMP #### [facility] ([id number]) [address] [place] [address] MCV (RBC) [Entitic vol] 90 fL Normal 80-100 [facility] Comment on above: Performed By: #### C BCA, CMP #### [facility] ([id number]) [address] [place] [address] Monocytes (Bld) [#/Vol] 1.3 10*3/uL High 0-0.9 [facility] Comment on above: Performed By: #### C BCA, CMP #### [facility] ([id number]) [address] [place] [address] Monocytes/100 WBC (Bld) 12.9 % Normal [facility] Comment on above: Performed By: #### C BCA, CMP #### [facility] ([id number]) [address], [address] [place] [address] MYELOCYTE 1.0 % Normal [facility] Comment on above: Performed By: #### C BCA, CMP #### [facility] ([id number]) [address], [address] [place] [address] Neutrophils (Bld) [#/Vol] 4.9 10*3/uL Normal 1.5-6.6 [facility] Comment on above: Performed By: #### C BCA, CMP #### [facility] ([id number]) [address] [place] [address] Platelet mean volume (Bld) [Entitic vol] 8.1 fL Normal 7-12 [facility] Comment on above: Performed By: #### C BCA, CMP #### [facility] ([id number]) [address], [address] [place] [address] Platelets (Bld) [#/Vol] 222 10*3/uL Normal 150-450 [facility] Comment on above: Performed By: #### C BCA, CMP #### [facility] ([id number]) [address] [address] [place] [address] RBC COUNT 3.84 X10E12/L Normal 3.80-5.20 [facility] Comment on above: Performed By: #### C BCA, CMP #### [facility] ([id number]) [address] [place] [address] RBC morphology finding Nom (Bld) NORMAL Normal [facility] Comment on above: Performed By: #### C BCA, CMP #### [facility] ([id number]) [address] [place] [address] SEG NEUTROPHIL 45.5 % Normal [facility] Comment on above: Performed By: #### C BCA, CMP #### [facility] ([id number]) [address] [address] [place] [address] WBC (Bld) [#/Vol] 10.3 10*3/uL Normal 4.0-11.0 [facility] Comment on above: Performed By: #### C BCA, CMP #### [facility] ([id number]) [address], [address] [place] [address] CBC auto differentialon Band form neutrophils/100 WBC (Bld) 2 % [facility] Eosinophils (Bld) [#/Vol] 0.7 10*3/uL High [facility] Eosinophils/100 WBC (Bld) 6.9 % [facility] Erythrocyte distribution width (RBC) [Ratio] 13.6 % 11.5 - 15.0 % [facility] Hematocrit (Bld) [Volume fraction] 34.6 % Low 35 - 47 % [facility] Hemoglobin (Bld) [Mass/Vol] 11.6 g/dL Low 11.7 - 15.5 g/dL [facility] Interpretation and review of laboratory results Abnormal [facility] Lymphocytes (Bld) [#/Vol] 3.3 10*3/uL [facility] Lymphocytes/100 WBC (Bld) 31.7 % [facility] MCH (RBC) [Entitic mass] 30.3 pg 27 - 34 pg [facility] MCHC (RBC) [Mass/Vol] 33.6 g/dL 32 - 36 g/dL [facility] MCV (RBC) [Entitic vol] 90 fL 80 - 100 fL [facility] Monocytes (Bld) [#/Vol] 1.3 10*3/uL High [facility] Monocytes/100 WBC (Bld) 12.9 % [facility] Myelocytes/100 WBC (Bld) 1 % [facility] Neutrophils (Bld) [#/Vol] 4.9 10*3/uL [facility] Platelet mean volume (Bld) [Entitic vol] 8.1 fL 7 - 12 fL [facility] Platelets (Bld) [#/Vol] 222 10*3/uL [facility] Polymorphonuclear cells/100 WBC (Bld) NORMAL [facility] RBC (Bld) [#/Vol] 3.84 10*6/uL [facility] Segmented neutrophils/100 WBC (Bld) 45.5 % [facility] WBC corrected for nucl RBC Auto (Bld) [#/Vol] 10.3 [facility] CK Totalon 11-12-2024 CK [Catalytic activity/Vol] 2824 U/L High 24 - 170 U/L [facility] CK [Catalytic activity/Vol]o n 11-12-2024 CPK 2824 U/L High 24-170 [facility] Comment on above: Performed By: #### C BCA, CMP #### [facility] ([id number]) [address], [address] [place] [address] COMPREHENSIVE METABOLIC PANE Elvin 11-12-2024 Albumin [Mass/Vol] 3.3 g/dL Normal 3.2-5.[address] [facility] Comment on above: Performed By: #### C BCA, CMP #### [facility] ([id number]) [address], [address] [place] [address] ALP [Catalytic activity/Vol] 94 U/L Normal 39-130 [facility] Comment on above: Performed By: #### C BCA, CMP #### [facility] ([id number]) [address], [address] [place] [address] ALT [Catalytic activity/Vol] 274 U/L High 0-31 [facility] Comment on above: Performed By: #### C BCA, CMP #### [facility] ([id number]) [address] [place] [address] Anion gap [Moles/Vol] 6 mmol/L Normal 5-15 [facility] Comment on above: Performed By: #### C BCA, CMP #### [facility] ([id number]) [address] [place] [address] AST [Catalytic activity/Vol] 107 U/L High 0-41 [facility] Comment on above: Performed By: #### C BCA, CMP #### [facility] ([id number]) [address], [address] [place] [address] Bilirubin [Mass/Vol] 0.5 mg/dL Normal 0.3-1.2 [facility] Comment on above: Performed By: #### C BCA, CMP #### [facility] ([id number]) [address], [address] [place] [address] Calcium [Mass/Vol] 8.6 mg/dL Normal 8.5-10.[address] [facility] Comment on above: Performed By: #### C BCA, CMP #### [facility] ([id number]) [address], [address] [place] [address] Chloride [Moles/Vol] 105 mmol/L Normal 98-109 [facility] Comment on above: Performed By: #### C BCA, CMP #### [facility] ([id number]) [address], [address] [place] [address] CO2 [Moles/Vol] 30 mmol/L Normal 22-32 [facility] Comment on above: Performed By: #### C BCA, CMP #### [facility] ([id number]) [address], [address] [place] [address] Creatinine [Mass/Vol] 1.39 mg/dL High 0.40-1.00 [facility] Comment on above: Result Comment: METH OD TRACEABLE TO IDMS STANDARD Performed By: #### C BCA, CMP #### [facility] ([id number]) [address], [address] [place] [address] GFR/1.73 sq M.predicted among non-blacks MDRD (S/P/Bld) [Vol rate/Area] 54 mL/min/{1.73_m2} Low >59 [facility] Comment on above: Result Comment: Reported eGFR is based on the CKD-EPI 2020 equation that does not use a race coefficient. Performed By: #### C BCA, CMP #### [facility] ([id number]) [address], [address] [place] [address] Glucose [Mass/Vol] 90 mg/dL Normal 65-[address] [facility] Comment on above: Performed By: #### C BCA, CMP #### [facility] ([id number]) [address], [address] [place] [address] Potassium [Moles/Vol] 4.4 mmol/L Normal 3.5-5.0 [facility] Comment on above: Performed By: #### C BCA, CMP #### [facility] ([id number]) [address], [address] [place] [address] Protein [Mass/Vol] 5.7 g/dL Low 6.0-8.[address] [facility] Comment on above: Performed By: #### C BCA, CMP #### [facility] ([id number]) [address], [address] [place] [address] Sodium [Moles/Vol] 141 mmol/L Normal 134-[address] [facility] Comment on above: Performed By: #### C BCA, CMP #### [facility] ([id number]) [address], [address] [place] [address] Urea nitrogen [Mass/Vol] 14 mg/dL Normal 5-23 [facility] Comment on above: Performed By: #### C BCA, CMP #### [facility] ([id number]) [address], [address] [place] [address] Comprehensive metabolic pane elvin 11-12-2024 Albumin [Mass/Vol] 3.3 g/dL 3.2 - 5.3 g/dL [facility] ALP [Catalytic activity/Vol] 94 U/L 39 - 130 U/L [facility] ALT No additional P-5'-P [Catalytic activity/Vol] 274 U/L High 0 - 31 U/L [facility] Anion gap [Moles/Vol] 6 mmol/L 5 - 15 mmol/L [facility] AST [Catalytic activity/Vol] 107 U/L High 0 - 41 U/L [facility] Bilirubin [Mass/Vol] 0.5 mg/dL 0.3 - 1 .2 mg/dL [facility] Calcium [Mass/Vol] 8.6 mg/dL 8.5 - 10. 5 mg/dL [facility] Chloride [Moles/Vol] 105 mmol/L 98 - 10 9 mmol/L [facility] CO2 [Moles/Vol] 30 mmol/L 22 - 32 mmol/L [facility] Creatinine [Mass/Vol] 1.39 mg/dL High 0.40 - 1.00 mg/dL [facility] eGFR (CKD-EPI)non-race dependent 54 Low - PINF [facility] Glucose [Mass/Vol] 90 mg/dL 65 - 99 mg/dL [facility] Potassium [Moles/Vol] 4.4 mmol/L 3.5 - 5.0 mmol/L [facility] Protein [Mass/Vol] 5.7 g/dL Low 6.0 - 8.0 g/dL [facility] Sodium [Moles/Vol] 141 mmol/L 134 - 146 mmol/L [facility] Urea nitrogen [Mass/Vol] 14 mg/dL 5 - 23 mg/dL [facility] MAGNESIUMon 11-12-2024 Magnesium [Mass/Vol] 1.5 mg/dL Low 1.8-2.6 [facility] Comment on above: Performed By: #### C BCA, CMP #### [facility] ([id number]) [facility], [address] [place] [address] Magnesiumon 11-12-2024 Magnesium [Mass/Vol] 1.5 mg/dL Low 1.8 - 2 .6 mg/dL [facility] Myoglobin [Mass/Vol]on 11-12 SERUM MYOGLOBIN 353.4 ng/mL High 14.3-65.[address] [facility] Comment on above: Performed By: #### C BCA, CMP #### [facility] ([id number]) [address] [place] [address] Myoglobin, serumon Myoglobin [Mass/Vol] 353.4 ng/mL High 14.3 - 65.8 ng/mL [facility] No Panel Informationon 11-12 Interpretation and review of laboratory results Abnormal [facility] PHOSPHORUSon 11-12-2024 Phosphate [Mass/Vol] 4.4 mg/dL Normal 2.4-4.9 [facility] Comment on above: Performed By: #### C QUIQUE, CMP #### [facility] ([id number]) [address], [address] [place] [address] Phosphoruson 11-12-2024 Phosphate [Mass/Vol] 4.4 mg/dL 2.4 - 4 .9 mg/dL [facility] CBC AND AUTO DIFFon 11-11-19 25 ABSOLUTE BASOPHIL 0.1 X10E9/L Normal 0.0-0.[address] [facility] Comment on above: Performed By: #### C QUIQUE, CMP #### [facility] ([id number]) [address], [address] [place] [address] ABSOLUTE NEUTROPHIL 6.3 X10E9/L Normal 1.5-6.6 [facility] Comment on above: Performed By: #### C QUQIUE, CMP #### [facility] ([id number]) [address], [address] [place] [address] Basophils/100 WBC (Bld) 0.6 % Normal [facility] Comment on above: Performed By: #### C BCA, CMP #### [facility] ([id number]) [address], [address] [place] [address] Eosinophils (Bld) [#/Vol] 1.0 10*3/uL High 0.0-0.4 [facility] Comment on above: Performed By: #### C BCA, CMP #### [facility] ([id number]) [address], [address] [place] [address] Eosinophils/100 WBC (Bld) 10.1 % Normal [facility] Comment on above: Performed By: #### C BCA, CMP #### [facility] ([id number]) [address], [address] [place] [address] Erythrocyte distribution width (RBC) [Ratio] 13.7 % Normal 11.5-15.0 [facility] Comment on above: Performed By: #### C BCA, CMP #### [facility] ([id number]) [address], [address] [place] [address] Hematocrit (Bld) [Volume fraction] 34.3 % Low 35-47 [facility] Comment on above: Performed By: #### C BCA, CMP #### [facility] ([id number]) [address], [address] [place] [address] Hemoglobin (Bld) [Mass/Vol] 11.6 g/dL Low 11.7-15.5 [facility] Comment on above: Performed By: #### C BCA, CMP #### [facility] ([id number]) [address], [address] [place] [address] Lymphocytes (Bld) [#/Vol] 1.7 10*3/uL Normal 1.0-3.5 [facility] Comment on above: Performed By: #### C BCA, CMP #### [facility] ([id number]) [address], [address] [place] [address] Lymphocytes/100 WBC (Bld) 17.0 % Normal [facility] Comment on above: Performed By: #### C BCA, CMP #### [facility] ([id number]) [address], [address] [place] [address] MCH (RBC) [Entitic mass] 30.5 pg Normal 27-34 [facility] Comment on above: Performed By: #### C BCA, CMP #### [facility] ([id number]) [address], [address] [place] [address] MCHC (RBC) [Mass/Vol] 34.0 g/dL Normal 32-36 [facility] Comment on above: Performed By: #### C BCA, CMP #### [facility] ([id number]) [address], [address] [place] [address] MCV (RBC) [Entitic vol] 90 fL Normal 80-100 [facility] Comment on above: Performed By: #### C BCA, CMP #### [facility] ([id number]) [address], [address] [place] [address] Monocytes (Bld) [#/Vol] 0.8 10*3/uL Normal 0-0.9 [facility] Comment on above: Performed By: #### C BCA, CMP #### [facility] ([id number]) [address], [address] [place] [address] Monocytes/100 WBC (Bld) 8.3 % Normal [facility] Comment on above: Performed By: #### C BCA, CMP #### [facility] ([id number]) [address], [address] [place] [address] Neutrophils/100 WBC (Bld) 64.0 % Normal [facility] Comment on above: Performed By: #### C BCA, CMP #### [facility] ([id number]) [address], [address] [place] [address] Platelet mean volume (Bld) [Entitic vol] 8.3 fL Normal 7-12 [facility] Comment on above: Performed By: #### C BCA, CMP #### [facility] ([id number]) [address], [address] [place] [address] Platelets (Bld) [#/Vol] 187 10*3/uL Normal 150-450 [facility] Comment on above: Performed By: #### C BCA, CMP #### [facility] ([id number]) [address], [address] [place] [address] RBC COUNT 3.81 X10E12/L Normal 3.80-5.20 [facility] Comment on above: Performed By: #### C QUIQUE, CMP #### [facility] ([id number]) [address], [address] [place] [address] WBC (Bld) [#/Vol] 9.9 10*3/uL Normal 4.0-11.[address] [facility] Comment on above: Performed By: #### C QUIQUE, CMP #### [facility] ([id number]) [address], [address] [place] [address] CBC auto differentialon Basophils (Bld) [#/Vol] 0.1 10*3/uL [facility] Basophils/100 WBC (Bld) 0.6 % [facility] Eosinophils (Bld) [#/Vol] 1 10*3/uL High [facility] Eosinophils/100 WBC (Bld) 10.1 % [facility] Erythrocyte distribution width (RBC) [Ratio] 13.7 % 11.5 - 15.0 % [facility] Hematocrit (Bld) [Volume fraction] 34.3 % Low 35 - 47 % [facility] Hemoglobin (Bld) [Mass/Vol] 11.6 g/dL Low 11.7 - 15.5 g/dL [facility] Interpretation and review of laboratory results Abnormal [facility] Lymphocytes (Bld) [#/Vol] 1.7 10*3/uL [facility] Lymphocytes/100 WBC (Bld) 17 % [facility] MCH (RBC) [Entitic mass] 30.5 pg 27 - 34 pg [facility] MCHC (RBC) [Mass/Vol] 34 g/dL 32 - 36 g/dL [facility] MCV (RBC) [Entitic vol] 90 fL 80 - 100 fL [facility] Monocytes (Bld) [#/Vol] 0.8 10*3/uL [facility] Monocytes/100 WBC (Bld) 8.3 % [facility] Neutrophils (Bld) [#/Vol] 6.3 10*3/uL [facility] Neutrophils/100 WBC (Bld) 64 % [facility] Platelet mean volume (Bld) [Entitic vol] 8.3 fL 7 - 12 fL [facility] Platelets (Bld) [#/Vol] 187 10*3/uL [facility] RBC (Bld) [#/Vol] 3.81 10*6/uL [facility] WBC corrected for nucl RBC Auto (Bld) [#/Vol] 9.9 [facility] CK Totalon 11-11-2024 CK [Catalytic activity/Vol] 6889 U/L High 24 - 170 U/L [facility] CK [Catalytic activity/Vol]o n 11-11-2024 CPK 6889 U/L High 24-170 [facility] Comment on above: Performed By: #### C BCA, CMP #### [facility] ([id number]) [address], [address] [place] [address] COMPREHENSIVE METABOLIC PANE Elvin 11-11-2024 Albumin [Mass/Vol] 3.3 g/dL Normal 3.2-5.[address] [facility] Comment on above: Performed By: #### C BCA, CMP #### [facility] ([id number]) [address], [address] [place] [address] ALP [Catalytic activity/Vol] 123 U/L Normal 39-130 [facility] Comment on above: Performed By: #### C BCA, CMP #### [facility] ([id number]) [address], [address] [place] [address] ALT [Catalytic activity/Vol] 398 U/L High 0-31 [facility] Comment on above: Performed By: #### C BCA, CMP #### [facility] ([id number]) [address], [address] [place] [address] Anion gap [Moles/Vol] 7 mmol/L Normal 5-15 [facility] Comment on above: Performed By: #### C BCA, CMP #### [facility] ([id number]) [address], [address] [place] [address] AST [Catalytic activity/Vol] 179 U/L High 0-41 [facility] Comment on above: Performed By: #### C BCA, CMP #### [facility] ([id number]) [address], [address] [place] [address] Bilirubin [Mass/Vol] 0.5 mg/dL Normal 0.3-1.2 [facility] Comment on above: Performed By: #### C BCA, CMP #### [facility] ([id number]) [address], [address] [place] [address] Calcium [Mass/Vol] 8.6 mg/dL Normal 8.5-10.[address] [facility] Comment on above: Performed By: #### C BCA, CMP #### [facility] ([id number]) [address], [address] [place] [address] Chloride [Moles/Vol] 104 mmol/L Normal 98-109 [facility] Comment on above: Performed By: #### C BCA, CMP #### [facility] ([id number]) [address], [address] [place] [address] CO2 [Moles/Vol] 29 mmol/L Normal 22-32 [facility] Comment on above: Performed By: #### C BCA, CMP #### [facility] ([id number]) [address], [address] [place] [address] Creatinine [Mass/Vol] 1.44 mg/dL High 0.40-1.00 [facility] Comment on above: Result Comment: METH OD TRACEABLE TO IDMS STANDARD Performed By: #### C BCA, CMP #### [facility] ([id number]) [address], [address] [place] [address] GFR/1.73 sq M.predicted among non-blacks MDRD (S/P/Bld) [Vol rate/Area] 52 mL/min/{1.73_m2} Low >59 [facility] Comment on above: Result Comment: Reported eGFR is based on the CKD-EPI 2020 equation that does not use a race coefficient. Performed By: #### C BCA, CMP #### [facility] ([id number]) [address], [address] [place] [address] Glucose [Mass/Vol] 95 mg/dL Normal 65-[address] [facility] Comment on above: Performed By: #### C BCA, CMP #### [facility] ([id number]) [address] [address] [place] [address] Potassium [Moles/Vol] 4.3 mmol/L Normal 3.5-5.0 [facility] Comment on above: Performed By: #### C BCA, CMP #### [facility] ([id number]) [address], [address] [place] [address] Protein [Mass/Vol] 5.8 g/dL Low 6.0-8.[address] [facility] Comment on above: Performed By: #### C BCA, CMP #### [facility] ([id number]) [address], [address] [place] [address] Sodium [Moles/Vol] 140 mmol/L Normal 134-[address] [facility] Comment on above: Performed By: #### C BCA, CMP #### [facility] ([id number]) [address], [address] [place] [address] Urea nitrogen [Mass/Vol] 16 mg/dL Normal 5-23 [facility] Comment on above: Performed By: #### C BCA, CMP #### [facility] ([id number]) [address], [address] [place] [address] Calcium.ionized (Bld) [Mass/ Vol]on 11-11-2024 [facility] IONIZED CALCIUM 4.7 mg/dL Normal 4.5-5.3 [facility] Comment on above: Performed By: #### C BCA, CMP #### [facility] ([id number]) [address] [facility], [address] [place] [address] Comprehensive metabolic pane elvin 11-11-2024 Albumin [Mass/Vol] 3.3 g/dL 3.2 - 5.3 g/dL [facility] ALP [Catalytic activity/Vol] 123 U/L 39 - 130 U/L [facility] ALT No additional P-5'-P [Catalytic activity/Vol] 398 U/L High 0 - 31 U/L [facility] Anion gap [Moles/Vol] 7 mmol/L 5 - 15 mmol/L [facility] AST [Catalytic activity/Vol] 179 U/L High 0 - 41 U/L [facility] Bilirubin [Mass/Vol] 0.5 mg/dL 0.3 - 1 .2 mg/dL [facility] Calcium [Mass/Vol] 8.6 mg/dL 8.5 - 10. 5 mg/dL [facility] Chloride [Moles/Vol] 104 mmol/L 98 - 10 9 mmol/L [facility] CO2 [Moles/Vol] 29 mmol/L 22 - 32 mmol/L [facility] Creatinine [Mass/Vol] 1.44 mg/dL High 0.40 - 1.00 mg/dL [facility] eGFR (CKD-EPI)non-race dependent 52 Low - PINF [facility] Glucose [Mass/Vol] 95 mg/dL 65 - 99 mg/dL [facility] Potassium [Moles/Vol] 4.3 mmol/L 3.5 - 5.0 mmol/L [facility] Protein [Mass/Vol] 5.8 g/dL Low 6.0 - 8.0 g/dL [facility] Sodium [Moles/Vol] 140 mmol/L 134 - 146 mmol/L [facility] Urea nitrogen [Mass/Vol] 16 mg/dL 5 - 23 mg/dL [facility] ECG 12 leadon 11-11-2024 TRACEMASTERVUE [facility] Holter monitor studyon 11-11 MANUALLY TRANSCRIBED RESULTS [facility] MANUALLY TRANSCRIBED RESULTS [facility] Ionized calciumon 11-11-2024 Calcium.ionized (Bld) [Mass/Vol] 4.7 mg/dL 4.5 - 5.3 mg/dL [facility] MAGNESIUMon 11-11-2024 Magnesium [Mass/Vol] 1.5 mg/dL Low 1.8-2.6 [facility] Comment on above: Performed By: #### C BCA, CMP #### [facility] ([id number]) [address] [place] [address] Magnesiumon 11-11-2024 Magnesium [Mass/Vol] 1.5 mg/dL Low 1.8 - 2 .6 mg/dL [facility] Myoglobin [Mass/Vol]on 11-11 SERUM MYOGLOBIN 423.2 ng/mL High 14.3-65.[address] [facility] Comment on above: Performed By: #### C BCA, CMP #### [facility] ([id number]) [address] [place] [address] Myoglobin, serumon Myoglobin [Mass/Vol] 423.2 ng/mL High 14.3 - 65.8 ng/mL [facility] No Panel Informationon 11-11 Interpretation and review of laboratory results Abnormal [facility] Interpretation and review of laboratory results Abnormal [facility] PHOSPHORUSon 11-11-2024 Phosphate [Mass/Vol] 4.1 mg/dL Normal 2.4-4.9 [facility] Comment on above: Performed By: #### C BCA, CMP #### [facility] ([id number]) [address], [address] [place] [address] Phosphoruson 11-11-2024 Phosphate [Mass/Vol] 4.1 mg/dL 2.4 - 4 .9 mg/dL [facility] RESP PATHOGENS/ZBDP-[id number] 11-11-2024 Respiratory pathogens DNA and RNA panel JACKSON+non-probe (Nph) SPECIMEN SOURCE NASO PHARYNX ADENOVIRUS Not detected (qualifier value) CORONAVIRUS 229E Not detected (qualifier value) CORONAVIRUS HKU1 Not detected (qualifier value) CORONAVIRUS NL63 Not detected (qualifier value) CORONAVIRUS OC43 Not detected (qualifier value) HUMAN METAPNEUVIRUS Not detected (qualifier value) RHINO/ENTEROVIRUS Not detected (qualifier value) INFLUENZA A 2009 H1 Detected (qualifier value) INFLUENZA B Not detected (qualifier value) PARAINFLUENZA 1 Not detected (qualifier value) PARAINFLUENZA 2 Not detected (qualifier value) PARAINFLUENZA 3 Not detected (qualifier value) PARAINFLUENZA 4 Not detected (qualifier value) RESP SYNCYTIAL VIRUS Not detected (qualifier value) BORD PARAPERTUSSIS Not detected (qualifier value) BORDETELLA PERTUSSIS Not detected (qualifier value) CHLAM.PNEUMONIAE Not detected (qualifier value) MYCO. PNEUMONIAE Not detected (qualifier value) SARS CoV 2 Not detected (qualifier value) NOTE The [employer] Respiratory Panel 2.1 (RP2.1) is a multiplexed nucleic acid test intended for the simultaneous qualitative detection and differentiation of nucleic acid from multiple viral and bacterial respiratory organisms, including nucleic acid from Severe Acute Respiratory Syndrome Coronavirus 2 (SARS-CoV-2), in nasopharyngeal swabs obtained from individuals suspected of COVID-19 by their healthcare provider. Testing is limited to laboratories certified under the Clinical Laboratory Improvement Amendments of 1988 (CLIA), to perform high complexity or moderate complexity tests. SARS-CoV-2 RNA and nucleic acids from the other respiratory viral and bacterial organisms identified by this test are generally detectable in nasopharyngeal swabs during the acute phase of infection. The detection and identification of specific viral and bacterial nucleic acids from individuals exhibiting signs and/or symptoms of respiratory infection is indicative of the presence of the identified microorganism and aids in the diagnosis of respiratory infection if used in conjunction with other clinical and epidemiological information. Positive results are indicative of the presence of the identified organism, but do not rule out co-infection with other pathogens. The agent(s) detected by the [employer] RP2.1 may not be the definite cause of disease and clinical correlation with patient history and other diagnostic information is necessary to determine patient infection status. Negative results in the setting of a respiratory illness may be due to infection with pathogens not detected by this test, or lower respiratory tract infection that may not be detected by a nasopharyngeal specimen. Negative results do not preclude SARS-CoV-2 infection and should not be used as the sole basis for patient management decisions. Negative JO ANN-CoV-2 results must be combined with clinical observations, patient history and epidemiological information. Negative results for other organisms identified by the test may require additional laboratory testing when evaluating a patient with possible respiratory tract infection. Normal [facility] Comment on above: Performed By: #### C BCA, CMP #### [facility] ([id number]) [address] [place] [address], [address] [place] [address] Respiratory pathogens DNA an d RNA panel JACKSON+non-probe (Nph)on 11-11-2024 Adenovirus DNA JACKSON+non-probe Ql (Nph) Not detected Not Detected^Not Detected [facility] B. parapertussis [id number] DNA JACKSON+non-probe Ql (Nph) Not detected Not Detected^Not Detected [facility] B. pertussis toxin promoter region JACKSON+non-probe Ql (Nph) Not detected Not Detected^Not Detected [facility] C. pneumoniae DNA JACKSON+non-probe Ql (Nph) Not detected Not Detected^Not Detected [facility] FLUAV H1 2009 pand RNA JACKSON+non-probe Ql (Nph) Detected Abnormal Not Detected^Not Detected [facility] FLUBV RNA JACKSON+non-probe Ql (Nph) Not detected Not Detected^Not Detected [facility] HCoV 229E RNA JACKSON+non-probe Ql (Nph) Not detected Not Detected^Not Detected [facility] HCoV HKU1 RNA JACKSON+non-probe Ql (Nph) Not detected Not Detected^Not Detected [facility] HCoV NL63 RNA JACKSON+non-probe Ql (Nph) Not detected Not Detected^Not Detected [facility] HCoV OC43 RNA JACKSON+non-probe Ql (Nph) Not detected Not Detected^Not Detected [facility] hMPV RNA JACKSON+non-probe Ql (Nph) Not detected Not Detected^Not Detected [facility] Interpretation and review of laboratory results Abnormal [facility] M. pneumoniae DNA JACKSON+non-probe Ql (Nph) Not detected Not Detected^Not Detected [facility] Parainfluenza virus 1 RNA JACKSON+non-probe Ql (Nph) Not detected Not Detected^Not Detected [facility] Parainfluenza virus 2 RNA JACKSON+non-probe Ql (Nph) Not detected Not Detected^Not Detected [facility] Parainfluenza virus 3 RNA JACKSON+non-probe Ql (Nph) Not detected Not Detected^Not Detected [facility] Parainfluenza virus 4 RNA JACKSON+non-probe Ql (Nph) Not detected Not Detected^Not Detected [facility] Rhinovirus+Enteroviru s RNA JACKSON+non-probe Ql (Nph) Not detected Not Detected^Not Detected [facility] RSV RNA JACKSON+non-probe Ql (Nph) Not detected Not Detected^Not Detected [facility] SARS-CoV-2 (COVID-19) RNA JACKSON+probe Ql (Resp) Not detected Not Detected^Not Detected [facility] Specimen source Nom (Body fld) NASO PHARYNX [facility] XR CHEST 1 VWon 11-11-2024 XR CHEST 1 VW XR CHEST 1 VW XR CHEST 1 VW IMPRESSION: Clinical Information: fever/congestion Comparison: 11/04/24. * Negative chest x-ray. Finalized by Rajendra Muro MD on 11/11/2024 4:18 PM Normal [facility] XR Chest Single viewon 11-11 SECTRAPACS [facility] Radiology Study observation (narrative) [facility] XR Chest Single viewOrdered By: Rajendra Muro on 11-11-2024 [facility] Work Phone: CBC AND AUTO DIFFon 11-10-19 25 Eosinophils (Bld) [#/Vol] 1.1 10*3/uL High 0.0-0.4 [facility] Comment on above: Performed By: #### C BCA, CMP #### [facility] ([id number]) [address], [address] [place] [address] Erythrocyte distribution width (RBC) [Ratio] 13.6 % Normal 11.5-15.0 [facility] Comment on above: Performed By: #### C BCA, CMP #### [facility] ([id number]) [address], [address] [place] [address] Hematocrit (Bld) [Volume fraction] 37.4 % Normal 35-47 [facility] Comment on above: Performed By: #### C QUIQUE, CMP #### [facility] ([id number]) [address], [address] [place] [address] Hemoglobin (Bld) [Mass/Vol] 12.4 g/dL Normal 11.7-15.5 [facility] Comment on above: Performed By: #### C QUIQUE, CMP #### [facility] ([id number]) [address], [address] [place] [address] Lymphocytes (Bld) [#/Vol] 1.1 10*3/uL Normal 1.0-3.5 [facility] Comment on above: Performed By: #### C QUIQUE, CMP #### [facility] ([id number]) [address], [address] [place] [address] MCH (RBC) [Entitic mass] 29.8 pg Normal 27-34 [facility] Comment on above: Performed By: #### C QUIQUE, CMP #### [facility] ([id number]) [address], [address] [place] [address] MCV (RBC) [Entitic vol] 90 fL Normal 80-100 [facility] Comment on above: Performed By: #### C QUIQUE, CMP #### [facility] ([id number]) [address], [address] [place] [address] Monocytes (Bld) [#/Vol] 0.7 10*3/uL Normal 0-0.9 [facility] Comment on above: Performed By: #### C BCA, CMP #### [facility] ([id number]) [address], [address] [place] [address] Neutrophils (Bld) [#/Vol] 7.9 10*3/uL High 1.5-6.6 [facility] Comment on above: Performed By: #### C QUIQUE, CMP #### [facility] ([id number]) [address] [place] [address] Platelet mean volume (Bld) [Entitic vol] 8.1 fL Normal 7-12 [facility] Comment on above: Performed By: #### C BCA, CMP #### [facility] ([id number]) [address], [address] [place] [address] Platelets (Bld) [#/Vol] 195 10*3/uL Normal 150-450 [facility] Comment on above: Performed By: #### C QUIQUE, CMP #### [facility] ([id number]) [address], [address] [place] [address] Band form neutrophils/100 WBC (Bld) 1.0 % Normal [facility] Comment on above: Performed By: #### C BCA, CMP #### [facility] ([id number]) [address], [address] [place] [address] Eosinophils/100 WBC (Bld) 10.0 % Normal [facility] Comment on above: Performed By: #### C BCA, CMP #### [facility] ([id number]) [address], [address] [place] [address] Lymphocytes/100 WBC (Bld) 10.0 % Normal [facility] Comment on above: Performed By: #### C BCA, CMP #### [facility] ([id number]) [address], [address] [place] [address] MCHC (RBC) [Mass/Vol] 33.0 g/dL Normal 32-36 [facility] Comment on above: Performed By: #### C BCA, CMP #### [facility] ([id number]) [address], [address] [place] [address] Metamyelocytes/100 WBC (Bld) 2.0 % Normal [facility] Comment on above: Performed By: #### C QUIQUE, CMP #### [facility] ([id number]) [address], [address] [place] [address] Monocytes/100 WBC (Bld) 6.0 % Normal [facility] Comment on above: Performed By: #### C QUIQUE, CMP #### [facility] ([id number]) [address], [address] [place] [address] MYELOCYTE 3.0 % Normal [facility] Comment on above: Performed By: #### C QUIQUE, CMP #### [facility] ([id number]) [address], [address] [place] [address] RBC COUNT 4.15 X10E12/L Normal 3.80-5.20 [facility] Comment on above: Performed By: #### C QUIQUE, CMP #### [facility] ([id number]) [address], [address] [place] [address] RBC morphology finding Nom (Bld) NORMAL Normal [facility] Comment on above: Performed By: #### C QUIQUE, CMP #### [facility] ([id number]) [address], [address] [place] [address] SEG NEUTROPHIL 68.0 % Normal [facility] Comment on above: Performed By: #### C BCA, CMP #### [facility] ([id number]) [address], [address] [place] [address] WBC (Bld) [#/Vol] 11.3 10*3/uL High 4.0-11.0 [facility] Comment on above: Performed By: #### C BCA, CMP #### [facility] ([id number]) [address], [address] [place] [address] CBC auto differentialon 02-0 Band form neutrophils/100 WBC (Bld) 1 % [facility] Eosinophils/100 WBC (Bld) 10 % [facility] Interpretation and review of laboratory results Abnormal [facility] Lymphocytes/100 WBC (Bld) 10 % [facility] MCHC (RBC) [Mass/Vol] 33 g/dL 32 - 36 g/dL [facility] Metamyelocytes/100 WBC (Bld) 2 % [facility] Monocytes/100 WBC (Bld) 6 % [facility] Myelocytes/100 WBC (Bld) 3 % [facility] Polymorphonuclear cells/100 WBC (Bld) NORMAL [facility] RBC (Bld) [#/Vol] 4.15 10*6/uL [facility] Segmented neutrophils/100 WBC (Bld) 68 % [facility] WBC corrected for nucl RBC Auto (Bld) [#/Vol] 11.3 High [facility] CK Totalon 11-10-2024 CK [Catalytic activity/Vol] [address] U/L High 24 - 170 U/L [facility] CK [Catalytic activity/Vol]o n 11-10-2024 Interpretation and review of laboratory results Abnormal [facility] CPK [address] U/L High 24-170 [facility] Comment on above: Performed By: #### C BCA, CMP #### [facility] ([id number]) [address] [place] [address] COMPREHENSIVE METABOLIC PANE Elvin 11-10-2024 Albumin [Mass/Vol] 3.7 g/dL Normal 3.2-5.3 [facility] Comment on above: Performed By: #### C BCA, CMP #### [facility] ([id number]) [address] [place] [address] ALP [Catalytic activity/Vol] 155 U/L High 39-130 [facility] Comment on above: Performed By: #### C BCA, CMP #### [facility] ([id number]) [address] [place] [address] Anion gap [Moles/Vol] 7 mmol/L Normal 5-15 [facility] Comment on above: Performed By: #### C BCA, CMP #### [facility] ([id number]) [address], [address] [place] [address] AST [Catalytic activity/Vol] 389 U/L High 0-41 [facility] Comment on above: Performed By: #### C BCA, CMP #### [facility] ([id number]) [address], [address] [place] [address] Bilirubin [Mass/Vol] 0.8 mg/dL Normal 0.3-1.2 [facility] Comment on above: Performed By: #### C BCA, CMP #### [facility] ([id number]) [address], [address] [place] [address] Calcium [Mass/Vol] 8.5 mg/dL Normal 8.5-10.5 [facility] Comment on above: Performed By: #### C BCA, CMP #### [facility] ([id number]) [address], [address] [place] [address] Chloride [Moles/Vol] 101 mmol/L Normal 98-109 [facility] Comment on above: Performed By: #### C BCA, CMP #### [facility] ([id number]) [address], [address] [place] [address] CO2 [Moles/Vol] 31 mmol/L Normal 22-32 [facility] Comment on above: Performed By: #### C BCA, CMP #### [facility] ([id number]) [address] [place] [address] Creatinine [Mass/Vol] 1.48 mg/dL High 0.40-1.00 [facility] Comment on above: Result Comment: METH OD TRACEABLE TO IDMS STANDARD Performed By: #### C BCA, CMP #### [facility] ([id number]) [address] [place] [address] Glucose [Mass/Vol] 92 mg/dL Normal 65-99 [facility] Comment on above: Performed By: #### C BCA, CMP #### [facility] ([id number]) [address] [place] [address] Potassium [Moles/Vol] 4.2 mmol/L Normal 3.5-5.0 [facility] Comment on above: Performed By: #### C BCA, CMP #### [facility] ([id number]) [address] [place] [address] Protein [Mass/Vol] 6.3 g/dL Normal 6.0-8.0 [facility] Comment on above: Performed By: #### C BCA, CMP #### [facility] ([id number]) [address], [address] [place] [address] Sodium [Moles/Vol] 139 mmol/L Normal 134-146 [facility] Comment on above: Performed By: #### C BCA, CMP #### [facility] ([id number]) [address] [place] [address] Urea nitrogen [Mass/Vol] 16 mg/dL Normal 5-23 [facility] Comment on above: Performed By: #### C BCA, CMP #### [facility] ([id number]) [address] [place] [address] ALT [Catalytic activity/Vol] 646 U/L High 0-31 [facility] Comment on above: Performed By: #### C BCA, CMP #### [facility] ([id number]) [address] [place] [address] GFR/1.73 sq M.predicted among non-blacks MDRD (S/P/Bld) [Vol rate/Area] 50 mL/min/{1.73_m2} Low >59 [facility] Comment on above: Result Comment: Reported eGFR is based on the CKD-EPI 2020 equation that does not use a race coefficient. Performed By: #### C QUIQUE, CMP #### [facility] ([id number]) [address] [place] [address] Calcium.ionized (Bld) [Mass/ Vol]on 11-10-2024 [facility] IONIZED CALCIUM 4.6 mg/dL Normal 4.5-5.3 [facility] Comment on above: Performed By: #### C BCA, CMP #### [facility] ([id number]) [address] [place] [address] Comprehensive metabolic pane elvin 11-10-2024 ALT No additional P-5'-P [Catalytic activity/Vol] 646 U/L High 0 - 31 U/L [facility] eGFR (CKD-EPI)non-race dependent 50 Low - PINF [facility] Interpretation and review of laboratory results Abnormal [facility] Ionized calciumon 11-10-2024 Calcium.ionized (Bld) [Mass/Vol] 4.6 mg/dL 4.5 - 5.3 mg/dL [facility] Laboratory - Chemistry and C hemistry - challengeon 11-10-2024 Magnesium [Mass/Vol] 1.9 mg/dL Normal 1.8-2.6 [facility] Comment on above: Performed By: #### C BCA, CMP #### [facility] ([id number]) [address] [place] [address] Phosphate [Mass/Vol] 4.3 mg/dL Normal 2.4-4.9 [facility] Comment on above: Performed By: #### C QUIQUE, CMP #### [facility] ([id number]) [address] [place] [address] Myoglobin [Mass/Vol]on 11-10 Interpretation and review of laboratory results Abnormal [facility] SERUM MYOGLOBIN 1008.9 ng/mL High 14.3-65.[address] [facility] Comment on above: Performed By: #### C QUIQUE, CMP #### [facility] ([id number]) [address] [place] [address] Myoglobin, serumon 5 Myoglobin [Mass/Vol] 1008.9 ng/mL High 14.3 - 65.8 ng/mL [facility] No Panel Informationon 11-10 [facility] BILIRUBIN,DIRECTon 5 Bilirubin.direct [Mass/Vol] 0.9 mg/dL High 0.0-0.4 [facility] Comment on above: Performed By: #### C QUIQUE, CMP, 51026-3, 24196-4, TSHR, 00220-6, 2777-1, 2639-3, 2157-6, 3024-7 #### [facility] ([id number]) [address], [address] [place] [address] Bilirubin, directon 11-09-19 25 Bilirubin.direct [Mass/Vol] 0.9 mg/dL High 0.0 - 0.4 mg/dL [facility] Bilirubin.direct [Mass/Vol]o n 11-09-2024 Interpretation and review of laboratory results Abnormal [facility] CBC AND AUTO DIFFon 11-09-19 25 ABSOLUTE BASOPHIL 0.0 X10E9/L Normal 0.0-0.[address] [facility] Comment on above: Performed By: #### C QUIQUE, CMP, 49492-3, 23943-2, TSHR, 50936-4, 2777-1, 2639-3, 2157-6, 3024-7 #### [facility] ([id number]) [address], [address] [place] [address] ABSOLUTE NEUTROPHIL 8.0 X10E9/L High 1.5-6.6 [facility] Comment on above: Performed By: #### C BCA, CMP, 12205-3, 29895-9, TSHR, 21743-4, 2777-1, 2639-3, 2157-6, 3024-7 #### [facility] ([id number]) [address], [address] [place] [address] Basophils/100 WBC (Bld) 0.2 % Normal [facility] Comment on above: Performed By: #### C BCA, CMP, 81181-3, 49595-4, TSHR, 77161-0, 2777-1, 2639-3, 2157-6, 3024-7 #### [facility] ([id number]) [address], [address] [place] [address] Eosinophils (Bld) [#/Vol] 0.2 10*3/uL Normal 0.0-0.4 [facility] Comment on above: Performed By: #### C BCA, CMP, 49814-7, 67593-4, TSHR, 20243-9, 2777-1, 2639-3, 2157-6, 3024-7 #### [facility] ([id number]) [address], [address] [place] [address] Eosinophils/100 WBC (Bld) 2.0 % Normal [facility] Comment on above: Performed By: #### C BCA, CMP, 40093-4, 06666-9, TSHR, 65922-6, 2777-1, 2639-3, 2157-6, 3024-7 #### [facility] ([id number]) [address], [address] [place] [address] Erythrocyte distribution width (RBC) [Ratio] 13.4 % Normal 11.5-15.0 [facility] Comment on above: Performed By: #### C BCA, CMP, 12566-1, 77087-9, TSHR, 78401-1, 2777-1, 2639-3, 2157-6, 3024-7 #### [facility] ([id number]) [address], [address] [place] [address] Hematocrit (Bld) [Volume fraction] 34.5 % Low 35-47 [facility] Comment on above: Performed By: #### C QUIQUE, CMP, 01656-8, 53183-5, TSHR, 09747-3, 2777-1, 2639-3, 2157-6, 3024-7 #### [facility] ([id number]) [address], [address] [place] [address] Hemoglobin (Bld) [Mass/Vol] 12.0 g/dL Normal 11.7-15.5 [facility] Comment on above: Performed By: #### C QUIQUE, CMP, 19582-9, 94588-7, TSHR, 27518-5, 2777-1, 2639-3, 2157-6, 3024-7 #### [facility] ([id number]) [address] [place] [address] Lymphocytes (Bld) [#/Vol] 1.3 10*3/uL Normal 1.0-3.5 [facility] Comment on above: Performed By: #### C QUIQUE, CMP, 93881-3, 00750-7, TSHR, 84348-3, 2777-1, 2639-3, 2157-6, 3024-7 #### [facility] ([id number]) [address] [address] Lymphocytes/100 WBC (Bld) 12.7 % Normal [facility] Comment on above: Performed By: #### C QUIQUE, CMP, 86215-9, 04679-8, TSHR, 30354-3, 2777-1, 2639-3, 2157-6, 3024-7 #### [facility] ([id number]) [address] [place] [address] MCH (RBC) [Entitic mass] 31.3 pg Normal 27-34 [facility] Comment on above: Performed By: #### C BCA, CMP, 29248-4, 27783-4, TSHR, 86464-3, 2777-1, 2639-3, 2157-6, 3024-7 #### [facility] ([id number]) [address] [place] [address] MCHC (RBC) [Mass/Vol] 34.8 g/dL Normal 32-36 [facility] Comment on above: Performed By: #### C BCA, CMP, 54719-1, 80008-0, TSHR, 77280-0, 2777-1, 2639-3, 2157-6, 3024-7 #### [facility] ([id number]) [address] [place] [address] MCV (RBC) [Entitic vol] 90 fL Normal 80-100 [facility] Comment on above: Performed By: #### C BCA, CMP, 14490-1, 42437-0, TSHR, 53978-7, 2777-1, 2639-3, 2157-6, 302-7 #### [facility] ([id number]) [address] [place] [address] Monocytes (Bld) [#/Vol] 0.8 10*3/uL Normal 0-0.9 [facility] Comment on above: Performed By: #### C BCA, CMP, 33597-4, 78545-6, TSHR, 87216-0, 2777-1, 2639-3, 2157-6, 3024-7 #### [facility] ([id number]) [address], [address] [place] [address] Monocytes/100 WBC (Bld) 7.7 % Normal [facility] Comment on above: Performed By: #### C BCA, CMP, 99074-3, 14417-7, TSHR, 34520-0, 2777-1, 2639-3, 2157-6, 3024-7 #### [facility] ([id number]) [address], [address] [place] [address] Neutrophils/100 WBC (Bld) 77.4 % Normal [facility] Comment on above: Performed By: #### C BCA, CMP, 21439-6, 33782-2, TSHR, 73133-9, 2777-1, 2639-3, 2157-6, 302-7 #### [facility] ([id number]) [address], [address] [place] [address] Platelet mean volume (Bld) [Entitic vol] 8.2 fL Normal 7-12 [facility] Comment on above: Performed By: #### C BCA, CMP, 84390-1, 42212-4, TSHR, 58657-2, 2777-1, 2639-3, 2157-6, 3023-7 #### [facility] ([id number]) [address] [place] [address] Platelets (Bld) [#/Vol] 210 10*3/uL Normal 150-450 [facility] Comment on above: Performed By: #### C BCA, CMP, 93903-9, 48710-9, TSHR, 00693-7, 2777-1, 2639-3, 2157-6, 3023-7 #### [facility] ([id number]) [address], [address] [place] [address] RBC COUNT 3.83 X10E12/L Normal 3.80-5.20 [facility] Comment on above: Performed By: #### C BCA, CMP, 99667-3, 62448-6, TSHR, 89815-5, 2777-1, 2639-3, 2157-6, 3023-7 #### [facility] ([id number]) [address], [address] [place] [address] WBC (Bld) [#/Vol] 10.4 10*3/uL Normal 4.0-11.0 [facility] Comment on above: Performed By: #### C BCA, CMP, 83980-9, 16705-0, TSHR, 31998-9, 2777-1, 2639-3, 2157-6, 3024-7 #### [facility] ([id number]) [address] [place] [address] CBC auto differentialon Basophils (Bld) [#/Vol] 0 10*3/uL [facility] Basophils/100 WBC (Bld) 0.2 % [facility] Eosinophils (Bld) [#/Vol] 0.2 10*3/uL [facility] Eosinophils/100 WBC (Bld) 2 % [facility] Erythrocyte distribution width (RBC) [Ratio] 13.4 % 11.5 - 15.0 % [facility] Hematocrit (Bld) [Volume fraction] 34.5 % Low 35 - 47 % [facility] Hemoglobin (Bld) [Mass/Vol] 12 g/dL 11.7 - 15.5 g/dL [facility] Interpretation and review of laboratory results Abnormal [facility] Lymphocytes (Bld) [#/Vol] 1.3 10*3/uL [facility] Lymphocytes/100 WBC (Bld) 12.7 % [facility] MCH (RBC) [Entitic mass] 31.3 pg 27 - 34 pg [facility] MCHC (RBC) [Mass/Vol] 34.8 g/dL 32 - 36 g/dL P [facility] MCV (RBC) [Entitic vol] 90 fL 80 - 100 fL [facility] Monocytes (Bld) [#/Vol] 0.8 10*3/uL [facility] Monocytes/100 WBC (Bld) 7.7 % [facility] Neutrophils (Bld) [#/Vol] 8 10*3/uL High [facility] Neutrophils/100 WBC (Bld) 77.4 % [facility] Platelet mean volume (Bld) [Entitic vol] 8.2 fL 7 - 12 fL [facility] Platelets (Bld) [#/Vol] 210 10*3/uL [facility] RBC (Bld) [#/Vol] 3.83 10*6/uL [facility] WBC corrected for nucl RBC Auto (Bld) [#/Vol] 10.4 [facility] CK Totalon 11-09-2024 CK [Catalytic activity/Vol] [address] U/L High 24 - 170 U/L [facility] CK [Catalytic activity/Vol]o n 11-09-2024 CPK 05658 U/L High 24-170 [facility] Comment on above: Performed By: #### C BCA, CMP, 51860-7, 47812-2, TSHR, 76359-1, 2777-1, 2639-3, 2157-6, 3024-7 #### [facility] ([id number]) [address] [place] [address] COMPREHENSIVE METABOLIC PANE Elvin 11-09-2024 Albumin [Mass/Vol] 3.7 g/dL Normal 3.2-5.[address] [facility] Comment on above: Performed By: #### C BCA, CMP, 24826-5, 34049-1, TSHR, 31337-1, 2777-1, 2639-3, 2157-6, 3024-7 #### [facility] ([id number]) [address], [address] [place] [address] ALP [Catalytic activity/Vol] 143 U/L High 39-130 [facility] Comment on above: Performed By: #### C BCA, CMP, 25883-7, 19194-2, TSHR, 58728-2, 2777-1, 2639-3, 2157-6, 3024-7 #### [facility] ([id number]) [address], [address] [place] [address] ALT [Catalytic activity/Vol] 838 U/L High 0-31 [facility] Comment on above: Performed By: #### C BCA, CMP, 50900-9, 33313-2, TSHR, 56947-8, 2777-1, 2639-3, 2157-6, 3024-7 #### [facility] ([id number]) [address], [address] [place] [address] Anion gap [Moles/Vol] 9 mmol/L Normal 5-15 [facility] Comment on above: Performed By: #### C BCA, CMP, 98572-6, 78940-8, TSHR, 69529-0, 2777-1, 2639-3, 2157-6, 3024-7 #### [facility] ([id number]) [address], [address] [place] [address] AST [Catalytic activity/Vol] 764 U/L High 0-41 [facility] Comment on above: Performed By: #### C BCA, CMP, 62975-8, 79268-3, TSHR, 18108-3, 2777-1, 2639-3, 2157-6, 3024-7 #### [facility] ([id number]) [address], [address] [place] [address] Bilirubin [Mass/Vol] 1.6 mg/dL High 0.3-1.2 [facility] Comment on above: Performed By: #### C BCA, CMP, 75348-6, 42034-6, TSHR, 46825-4, 2777-1, 2639-3, 2157-6, 3024-7 #### [facility] ([id number]) [address], [address] [place] [address] Calcium [Mass/Vol] 8.8 mg/dL Normal 8.5-10.[address] [facility] Comment on above: Performed By: #### C BCA, CMP, 28157-0, 17830-3, TSHR, 71461-5, 2777-1, 2639-3, 2157-6, 3024-7 #### [facility] ([id number]) [address], [address] [place] [address] Chloride [Moles/Vol] 101 mmol/L Normal 98-109 [facility] Comment on above: Performed By: #### C BCA, CMP, 43748-7, 48222-6, TSHR, 94222-4, 2777-1, 2639-3, 2157-6, 3024-7 #### [facility] ([id number]) [address], [address] [place] [address] CO2 [Moles/Vol] 30 mmol/L Normal 22-32 [facility] Comment on above: Performed By: #### C BCA, CMP, 21644-0, 43959-5, TSHR, 87876-3, 2777-1, 2639-3, 2157-6, 3024-7 #### [facility] ([id number]) [address], [address] [place] [address] Creatinine [Mass/Vol] 1.58 mg/dL High 0.40-1.00 [facility] Comment on above: Result Comment: METH OD TRACEABLE TO IDMS STANDARD Performed By: #### C BCA, CMP, 12741-4, 28375-6, TSHR, 72369-2, 2777-1, 2639-3, 2157-6, 3024-7 #### [facility] ([id number]) [address], [address] [place] [address] GFR/1.73 sq M.predicted among non-blacks MDRD (S/P/Bld) [Vol rate/Area] 47 mL/min/{1.73_m2} Low >59 [facility] Comment on above: Result Comment: Reported eGFR is based on the CKD-EPI 2020 equation that does not use a race coefficient. Performed By: #### C BCA, CMP, 79423-9, 45243-3, TSHR, 29797-0, 2777-1, 2639-3, 2157-6, 3024-7 #### [facility] ([id number]) [address], [address] [place] [address] Glucose [Mass/Vol] 90 mg/dL Normal 65-[address] [facility] Comment on above: Performed By: #### C BCA, CMP, 43884-6, 09962-1, TSHR, 53664-9, 2777-1, 2639-3, 2157-6, 3024-7 #### [facility] ([id number]) [address], [address] [place] [address] Potassium [Moles/Vol] 4.7 mmol/L Normal 3.5-5.0 [facility] Comment on above: Performed By: #### C BCA, CMP, 97264-4, 60158-7, TSHR, 94982-3, 2777-1, 2639-3, 2157-6, 302-7 #### [facility] ([id number]) [address], [address] [place] [address] Protein [Mass/Vol] 6.0 g/dL Normal 6.0-8.[address] [facility] Comment on above: Performed By: #### C BCA, CMP, 45465-5, 97918-5, TSHR, 39281-5, 2777-1, 2639-3, 2157-6, 302-7 #### [facility] ([id number]) [address], [address] [place] [address] Sodium [Moles/Vol] 140 mmol/L Normal 134-[address] [facility] Comment on above: Performed By: #### C BCA, CMP, 78898-7, 68509-1, TSHR, 81108-0, 2777-1, 2639-3, 2157-6, 302-7 #### [facility] ([id number]) [address], [address] [place] [address] Urea nitrogen [Mass/Vol] 22 mg/dL Normal 5-23 [facility] Comment on above: Performed By: #### C BCA, CMP, 40532-8, 21274-1, TSHR, 10861-2, 2777-1, 2639-3, 2157-6, 3024-7 #### [facility] ([id number]) [address] [place] [address] Calcium.ionized (Bld) [Mass/ Vol]on 11-09-2024 [facility] IONIZED CALCIUM 4.5 mg/dL Normal 4.5-5.3 [facility] Comment on above: Performed By: #### C BCA, CMP, 63994-7, 46623-0, TSHR, 26319-7, 2777-1, 2639-3, 7-6, 302-7 #### [facility] ([id number]) [address], [address] [place] [address] Comprehensive metabolic pane elvin 11-09-2024 Albumin [Mass/Vol] 3.7 g/dL 3.2 - 5.3 g/dL [facility] ALP [Catalytic activity/Vol] 143 U/L High 39 - 130 U/L [facility] ALT No additional P-5'-P [Catalytic activity/Vol] 838 U/L High 0 - 31 U/L [facility] Anion gap [Moles/Vol] 9 mmol/L 5 - 15 mmol/L [facility] AST [Catalytic activity/Vol] 764 U/L High 0 - 41 U/L [facility] Bilirubin [Mass/Vol] 1.6 mg/dL High 0.3 - 1 .2 mg/dL [facility] Calcium [Mass/Vol] 8.8 mg/dL 8.5 - 10. 5 mg/dL [facility] Chloride [Moles/Vol] 101 mmol/L 98 - 10 9 mmol/L [facility] CO2 [Moles/Vol] 30 mmol/L 22 - 32 mmol/L [facility] Creatinine [Mass/Vol] 1.58 mg/dL High 0.40 - 1.00 mg/dL [facility] eGFR (CKD-EPI)non-race dependent 47 Low - PINF [facility] Glucose [Mass/Vol] 90 mg/dL 65 - 99 mg/dL [facility] Potassium [Moles/Vol] 4.7 mmol/L 3.5 - 5.0 mmol/L [facility] Protein [Mass/Vol] 6 g/dL 6.0 - 8.0 g/dL [facility] Sodium [Moles/Vol] 140 mmol/L 134 - 146 mmol/L [facility] Urea nitrogen [Mass/Vol] 22 mg/dL 5 - 23 mg/dL [facility] Enterovirus PCR, Karri 025 Enterovirus PCR Negative Negative [facility] Ionized calciumon 11-09-2024 Calcium.ionized (Bld) [Mass/Vol] 4.5 mg/dL 4.5 - 5.3 mg/dL [facility] Ionized magnesiumon 11-09-19 25 Magnesium Ionized ISE (Bld) [Moles/Vol] 0.74 mmol/L 0.45 - 0.74 mmol/L [facility] Magnesium Ionized ISE (Bld) [Moles/Vol] 0.45 mmol/L 0.45 - 0.74 mmol/L [facility] MAGNESIUMon 11-09-2024 Magnesium [Mass/Vol] 1.7 mg/dL Low 1.8-2.6 [facility] Comment on above: Performed By: #### C BCA, CMP, 73647-6, 17185-2, TSHR, 72114-0, 2777-1, 2639-3, 2157-6, 3024-7 #### [facility] ([id number]) [address], [address] [place] [address] Magnesiumon 11-09-2024 Magnesium [Mass/Vol] 1.7 mg/dL Low 1.8 - 2 .6 mg/dL [facility] Magnesium Ionized ISE (Bld) [Moles/Vol]on 11-09-2024 [facility] Magnesium [Moles/Vol] 0.74 mmol/L Normal 0.45-0.74 [facility] Comment on above: Result Comment: NEW REFERENCE RANGE Performed By: #### C BCA, CMP, 37700-5, 19091-1, TSHR, 07048-2, 2777-1, 2639-3, 2157-6, 302- #### [facility] ([id number]) [address], [address] [place] [address] [facility] Magnesium [Moles/Vol] 0.45 mmol/L Normal 0.45-0.74 [facility] Comment on above: Result Comment: NEW REFERENCE RANGE Performed By: #### C BCA, CMP, 21806-2, 51064-9, TSHR, 57463-0, 2777-1, 2639-3, 2156-6, 302- #### [facility] ([id number]) [address], [address] [place] [address] Myoglobin [Mass/Vol]on 11-09 SERUM MYOGLOBIN 2894.9 ng/mL High 14.3-65.[address] [facility] Comment on above: Performed By: #### C BCA, CMP, 52371-2, 34724-8, TSHR, 49884-5, 2777-1, 2639-3, 2156-6, 30201-09 #### [facility] ([id number]) [address], [address] [place] [address] Myoglobin, serumon Myoglobin [Mass/Vol] 2894.9 ng/mL High 14.3 - 65.8 ng/mL [facility] No Panel Informationon 11-09 Interpretation and review of laboratory results Abnormal [facility] PHOSPHORUSon 11-09-2024 Phosphate [Mass/Vol] 4.1 mg/dL Normal 2.4-4.9 [facility] Comment on above: Performed By: #### C BCA, CMP, 44990-4, 95811-3, TSHR, 87560-8, 2777-1, 2639-3, 215-6, 3024-7 #### [facility] ([id number]) [address], [address] [place] [address] POTASSIUMon 11-09-2024 Potassium [Moles/Vol] 4.1 mmol/L Normal 3.5-5.0 [facility] Comment on above: Performed By: #### C BCA, CMP #### [facility] ([id number]) [address], [address] [place] [address] Phosphoruson 11-09-2024 Phosphate [Mass/Vol] 4.1 mg/dL 2.4 - 4 .9 mg/dL [facility] Potassiumon 11-09-2024 Potassium [Moles/Vol] 4.1 mmol/L 3.5 - 5.0 mmol/L [facility] Potassium [Moles/Vol]on [facility] BASIC METABOLIC PANLon 11-08 Anion gap [Moles/Vol] 5 mmol/L Normal 5-15 [facility] Comment on above: Performed By: #### C BCA, CMP, 93094-7, 77405-2, TSHR, 36855-1, 2777-1, 2639-3, 7-6, 3024-7 #### [facility] ([id number]) [address], [address] [place] [address] Calcium [Mass/Vol] 7.7 mg/dL Low 8.5-10.[address] [facility] Comment on above: Performed By: #### C BCA, CMP, 36259-4, 83374-2, TSHR, 94376-9, 2777-1, 2639-3, 2157-6, 3024-7 #### [facility] ([id number]) [address], [address] [place] [address] Chloride [Moles/Vol] 108 mmol/L Normal 98-109 [facility] Comment on above: Performed By: #### C BCA, CMP, 47558-0, 86961-5, TSHR, 17095-1, 2777-1, 2639-3, 2157-6, 3024-7 #### [facility] ([id number]) [address], [address] [place] [address] CO2 [Moles/Vol] 28 mmol/L Normal 22-32 [facility] Comment on above: Performed By: #### C BCA, CMP, 20421-1, 33797-1, TSHR, 91008-0, 2777-1, 2639-3, 2157-6, 3024-7 #### [facility] ([id number]) [address], [address] [place] [address] Creatinine [Mass/Vol] 1.51 mg/dL High 0.40-1.00 [facility] Comment on above: Result Comment: METH OD TRACEABLE TO IDMS STANDARD Performed By: #### C BCA, CMP, 46474-6, 59420-1, TSHR, 90183-3, 2777-1, 2639-3, 2157-6, 3024-7 #### [facility] ([id number]) [address], [address] [place] [address] GFR/1.73 sq M.predicted among non-blacks MDRD (S/P/Bld) [Vol rate/Area] 49 mL/min/{1.73_m2} Low >59 [facility] Comment on above: Result Comment: Reported eGFR is based on the CKD-EPI 2020 equation that does not use a race coefficient. Performed By: #### C BCA, CMP, 73545-3, 34784-1, TSHR, 73229-5, 2777-1, 2639-3, 2157-6, 3024-7 #### [facility] ([id number]) [address], [address] [place] [address] Glucose [Mass/Vol] 77 mg/dL Normal 65-[address] [facility] Comment on above: Performed By: #### C BCA, CMP, 27403-2, 76240-6, TSHR, 11589-5, 2777-1, 2639-3, 2157-6, 3024-7 #### [facility] ([id number]) [address], [address] [place] [address] Potassium [Moles/Vol] 3.3 mmol/L Low 3.5-5.0 [facility] Comment on above: Performed By: #### C BCA, CMP, 23994-9, 60708-3, TSHR, 11324-1, 2777-1, 2639-3, 2157-6, 3024-7 #### [facility] ([id number]) [address] [place] [address] Sodium [Moles/Vol] 141 mmol/L Normal 134-[address] [facility] Comment on above: Performed By: #### C BCA, CMP, 40755-9, 29663-5, TSHR, 61965-5, 2777-1, 2639-3, 2157-6, 3024-7 #### [facility] ([id number]) [address], [address] [place] [address] Urea nitrogen [Mass/Vol] 24 mg/dL High 5-23 [facility] Comment on above: Performed By: #### C BCA, CMP, 00781-4, 81880-1, TSHR, 94583-2, 2777-1, 2639-3, 2157-6, 3024-7 #### [facility] ([id number]) [address], [address] [place] [address] Basic Metabolic Panelon 02- Anion gap [Moles/Vol] 5 mmol/L 5 - 15 mmol/L [facility] Calcium [Mass/Vol] 7.7 mg/dL Low 8.5 - 10. 5 mg/dL [facility] Chloride [Moles/Vol] 108 mmol/L 98 - 10 9 mmol/L [facility] CO2 [Moles/Vol] 28 mmol/L 22 - 32 mmol/L [facility] Creatinine [Mass/Vol] 1.51 mg/dL High 0.40 - 1.00 mg/dL [facility] eGFR (CKD-EPI)non-race dependent 49 Low - PINF [facility] Glucose [Mass/Vol] 77 mg/dL 65 - 99 mg/dL [facility] Interpretation and review of laboratory results Abnormal [facility] Potassium [Moles/Vol] 3.3 mmol/L Low 3.5 - 5.0 mmol/L [facility] Sodium [Moles/Vol] 141 mmol/L 134 - 146 mmol/L [facility] Urea nitrogen [Mass/Vol] 24 mg/dL High 5 - 23 mg/dL [facility] CBC AND AUTO DIFFon 11-08-19 25 ABSOLUTE BASOPHIL 0.0 X10E9/L Normal 0.0-0.[address] [facility] Comment on above: Performed By: #### C BCA, CMP, 45991-9, 70964-5, TSHR, 85471-9, 2777-1, 2639-3, 2157-6, 3024-7 #### [facility] ([id number]) [address], [address] [place] [address] ABSOLUTE NEUTROPHIL 8.3 X10E9/L High 1.5-6.6 [facility] Comment on above: Performed By: #### C BCA, CMP, 33329-7, 25163-0, TSHR, 94959-4, 2777-1, 2639-3, 2157-6, 3024-7 #### [facility] ([id number]) [address], [address] [place] [address] Basophils/100 WBC (Bld) 0.2 % Normal [facility] Comment on above: Performed By: #### C BCA, CMP, 30937-9, 80998-7, TSHR, 76514-9, 2777-1, 2639-3, 2157-6, 3024-7 #### [facility] ([id number]) [address], [address] [place] [address] Eosinophils (Bld) [#/Vol] 0.0 10*3/uL Normal 0.0-0.4 [facility] Comment on above: Performed By: #### C BCA, CMP, 57402-7, 49736-9, TSHR, 35186-8, 2777-1, 2639-3, 2157-6, 3024-7 #### [facility] ([id number]) [address], [address] [place] [address] Eosinophils/100 WBC (Bld) 0.1 % Normal [facility] Comment on above: Performed By: #### C BCA, CMP, 20117-8, 53787-0, TSHR, 26769-7, 2777-1, 2639-3, 2157-6, 3024-7 #### [facility] ([id number]) [address], [address] [place] [address] Erythrocyte distribution width (RBC) [Ratio] 13.4 % Normal 11.5-15.0 [facility] Comment on above: Performed By: #### C BCA, CMP, 26814-2, 13684-5, TSHR, 98689-7, 2777-1, 2639-3, 2157-6, 3024-7 #### [facility] ([id number]) [address], [address] [place] [address] Hematocrit (Bld) [Volume fraction] 27.9 % Low 35-47 [facility] Comment on above: Performed By: #### C BCA, CMP, 76380-9, 38632-9, TSHR, 31498-3, 2777-1, 2639-3, 2157-6, 3024-7 #### [facility] ([id number]) [address], [address] [place] [address] Hemoglobin (Bld) [Mass/Vol] 9.5 g/dL Low 11.7-15.5 [facility] Comment on above: Performed By: #### C BCA, CMP, 85214-4, 49656-0, TSHR, 20938-1, 2777-1, 2639-3, 2157-6, 3024-7 #### [facility] ([id number]) [address], [address] [place] [address] Lymphocytes (Bld) [#/Vol] 1.8 10*3/uL Normal 1.0-3.5 [facility] Comment on above: Performed By: #### C BCA, CMP, 41676-5, 74513-1, TSHR, 46704-0, 2777-1, 2639-3, 2157-6, 3024-7 #### [facility] ([id number]) [address], [address] [place] [address] Lymphocytes/100 WBC (Bld) 16.1 % Normal [facility] Comment on above: Performed By: #### C BCA, CMP, 37228-6, 49970-6, TSHR, 25104-0, 2777-1, 2639-3, 2157-6, 3024-7 #### [facility] ([id number]) [address], [address] [place] [address] MCH (RBC) [Entitic mass] 30.9 pg Normal 27-34 [facility] Comment on above: Performed By: #### C BCA, CMP, 04195-3, 63043-9, TSHR, 84843-5, 2777-1, 2639-3, 2157-6, 3024-7 #### [facility] ([id number]) [address], [address] [place] [address] MCHC (RBC) [Mass/Vol] 34.2 g/dL Normal 32-36 [facility] Comment on above: Performed By: #### C BCA, CMP, 51802-9, 28798-7, TSHR, 42759-1, 2777-1, 2639-3, 2157-6, 3024-7 #### [facility] ([id number]) [address], [address] [place] [address] MCV (RBC) [Entitic vol] 90 fL Normal 80-100 [facility] Comment on above: Performed By: #### C BCA, CMP, 41131-7, 12133-8, TSHR, 43812-3, 2777-1, 2639-3, 2157-6, 3024-7 #### [facility] ([id number]) [address], [address] [place] [address] Monocytes (Bld) [#/Vol] 0.9 10*3/uL Normal 0-0.9 [facility] Comment on above: Performed By: #### C BCA, CMP, 72806-9, 19279-5, TSHR, 16252-5, 2777-1, 2639-3, 2157-6, 3024-7 #### [facility] ([id number]) [address], [address] [place] [address] Monocytes/100 WBC (Bld) 7.9 % Normal [facility] Comment on above: Performed By: #### C BCA, CMP, 26730-6, 29831-1, TSHR, 08001-8, 2777-1, 2639-3, 2157-6, 3024-7 #### [facility] ([id number]) [address], [address] [place] [address] Neutrophils/100 WBC (Bld) 75.7 % Normal [facility] Comment on above: Performed By: #### C BCA, CMP, 23316-6, 61804-2, TSHR, 18241-5, 2777-1, 2639-3, 2157-6, 3024-7 #### [facility] ([id number]) [address], [address] [place] [address] Platelet mean volume (Bld) [Entitic vol] 8.2 fL Normal 7-12 [facility] Comment on above: Performed By: #### C BCA, CMP, 12572-7, 55581-3, TSHR, 34208-2, 2777-1, 2639-3, 2157-6, 3024-7 #### [facility] ([id number]) [address], [address] [place] [address] Platelets (Bld) [#/Vol] 203 10*3/uL Normal 150-450 [facility] Comment on above: Performed By: #### C BCA, CMP, 55094-4, 42871-1, TSHR, 85760-6, 2777-1, 2639-3, 2157-6, 3024-7 #### [facility] ([id number]) [address], [address] [address] RBC COUNT 3.09 X10E12/L Low 3.80-5.20 [facility] Comment on above: Performed By: #### C BCA, CMP, 81065-0, 14389-8, TSHR, 49997-1, 2777-1, 2639-3, 2157-6, 3024-7 #### [facility] ([id number]) [address], [address] [address] WBC (Bld) [#/Vol] 11.0 10*3/uL Normal 4.0-11.0 [facility] Comment on above: Performed By: #### C BCA, CMP, 71754-6, 34859-6, TSHR, 95073-8, 2777-1, 2639-3, 2157-6, 3024-7 #### [facility] ([id number]) [address], [address] [place] [address] CBC auto differentialon 02-0 -2024 Basophils (Bld) [#/Vol] 0 10*3/uL [facility] Basophils/100 WBC (Bld) 0.2 % [facility] Eosinophils (Bld) [#/Vol] 0 10*3/uL [facility] Eosinophils/100 WBC (Bld) 0.1 % [facility] Erythrocyte distribution width (RBC) [Ratio] 13.4 % 11.5 - 15.0 % [facility] Hematocrit (Bld) [Volume fraction] 27.9 % Low 35 - 47 % [facility] Hemoglobin (Bld) [Mass/Vol] 9.5 g/dL Low 11.7 - 15.5 g/dL [facility] Interpretation and review of laboratory results Abnormal [facility] Lymphocytes (Bld) [#/Vol] 1.8 10*3/uL [facility] Lymphocytes/100 WBC (Bld) 16.1 % [facility] MCH (RBC) [Entitic mass] 30.9 pg 27 - 34 pg [facility] MCHC (RBC) [Mass/Vol] 34.2 g/dL 32 - 36 g/dL [facility] MCV (RBC) [Entitic vol] 90 fL 80 - 100 fL [facility] Monocytes (Bld) [#/Vol] 0.9 10*3/uL [facility] Monocytes/100 WBC (Bld) 7.9 % [facility] Neutrophils (Bld) [#/Vol] 8.3 10*3/uL High [facility] Neutrophils/100 WBC (Bld) 75.7 % [facility] Platelet mean volume (Bld) [Entitic vol] 8.2 fL 7 - 12 fL [facility] Platelets (Bld) [#/Vol] 203 10*3/uL [facility] RBC (Bld) [#/Vol] 3.09 10*6/uL Low [facility] WBC corrected for nucl RBC Auto (Bld) [#/Vol] 11 [facility] CK Totalon 11-08-2024 CK [Catalytic activity/Vol] [address] U/L High 24 - 170 U/L [facility] CK [Catalytic activity/Vol]o n 11-08-2024 Interpretation and review of laboratory results Abnormal [facility] CPK [address] U/L High 24-170 [facility] Comment on above: Performed By: #### C BCA, CMP, 57987-1, 96999-3, TSHR, 24988-0, 2777-1, 2639-3, 2157-6, 3024-7 #### [facility] ([id number]) [address], [address] [place] [address] Calcium.ionized (Bld) [Mass/ Vol]on 11-08-2024 [facility] IONIZED CALCIUM 4.6 mg/dL Normal 4.5-5.3 [facility] Comment on above: Performed By: #### C BCA, CMP, 72936-1, 53845-0, TSHR, 81574-9, 2777-1, 2639-3, 2157-6, 3024-7 #### [facility] ([id number]) [address], [address] [place] [address] Cobalamin (Vitamin B12) [Mas s/Vol]on 11-08-2024 [facility] FERRITINon 11-08-2024 Ferritin [Mass/Vol] 214 ng/mL Normal 11-307 [facility] Comment on above: Performed By: #### C BCA, CMP, 99566-0, 34391-1, TSHR, 98908-6, 2777-1, 2639-3, 2157-6, 3024-7 #### [facility] ([id number]) [address], [address] [place] [address] Ferritinon 11-08-2024 Ferritin [Mass/Vol] 214 ng/mL 11 - 307 ng/mL [facility] Ferritin [Mass/Vol]on 2024 [facility] Folateon 11-08-2024 Folate [Mass/Vol] 9.4 ng/mL 5.8 - PINF ng/mL [facility] Folate [Mass/Vol]on 11-08-19 [facility] FOLIC ACID 9.4 ng/mL Normal >5.8 [facility] Comment on above: Result Comment: NEW REFERENCE RANGE Performed By: #### C BCA, CMP, 44512-8, 34614-0, TSHR, 75424-6, 2777-1, 2639-3, 2157-6, 3024-7 #### [facility] ([id number]) [address], [address] [place] [address] Glucose Glucometer (BldC) [M ass/Vol]on 11-08-2024 Glucose [Mass/Vol] 153 mg/dL High 65 - 99 mg/dL [facility] Interpretation and review of laboratory results Abnormal [facility] Glucose [Mass/Vol] 153 mg/dL High 65-[address] [facility] IRON PROFILEon 11-08-2024 Iron [Mass/Vol] 70 ug/dL Normal 50-170 [facility] Comment on above: Performed By: #### C BCA, CMP, 73811-4, 34585-9, TSHR, 32496-0, 2777-1, 2639-3, 2157-6, 3024-7 #### [facility] ([id number]) [address], [address] [place] [address] IRON BINDING 358 ug/dL Normal 250-425 [facility] Comment on above: Performed By: #### C BCA, CMP, 92680-3, 75385-9, TSHR, 87452-2, 2777-1, 2639-3, 2157-6, 3024-7 #### [facility] ([id number]) [address], [address] [place] [address] IRON SATURATION 20 % SATURATION Normal 15-50 [facility] Comment on above: Performed By: #### C BCA, CMP, 48048-9, 74068-1, TSHR, 04396-9, 2777-1, 2639-3, 2157-6, 3024-7 #### [facility] ([id number]) [address], [address] [place] [address] Ionized calciumon 11-08-2024 Calcium.ionized (Bld) [Mass/Vol] 4.6 mg/dL 4.5 - 5.3 mg/dL [facility] Ionized magnesiumon 11-08-19 25 Magnesium Ionized ISE (Bld) [Moles/Vol] 0.63 mmol/L 0.45 - 0.74 mmol/L [facility] Iron and TIBCon 11-08-2024 Iron [Mass/Vol] 70 ug/dL 50 - 170 ug/dL [facility] Iron binding capacity [Mass/Vol] 358 ug/dL 250 - 425 ug/dL [facility] Iron saturation [Mass fraction] 20 [facility] MAGNESIUMon 11-08-2024 Magnesium [Mass/Vol] 1.9 mg/dL Normal 1.8-2.6 [facility] Comment on above: Performed By: #### C QUIQUE, CMP, 00514-8, 72444-3, TSHR, 06342-5, 2777-1, 2639-3, 2157-6, 3024-7 #### [facility] ([id number]) [address], [address] [place] [address] Magnesiumon 11-08-2024 Magnesium [Mass/Vol] 1.9 mg/dL 1.8 - 2 .6 mg/dL [facility] Magnesium Ionized ISE (Bld) [Moles/Vol]on 11-08-2024 [facility] Magnesium [Moles/Vol] 0.63 mmol/L Normal 0.45-0.74 [facility] Comment on above: Result Comment: NEW REFERENCE RANGE Performed By: #### C BCA, CMP, 68244-5, 93582-8, TSHR, 41951-5, 2777-1, 2639-3, 2157-6, 3024-7 #### [facility] ([id number]) [address], [address] [place] [address] Myoglobin [Mass/Vol]on 11-08 Interpretation and review of laboratory results Abnormal [facility] SERUM MYOGLOBIN 3593.6 ng/mL High 14.3-65.[address] [facility] Comment on above: Performed By: #### C BCA, CMP, 33846-6, 88833-9, TSHR, 72169-6, 2777-1, 2639-3, 2157-6, 3024-7 #### [facility] ([id number]) [address], [address] [place] [address] Myoglobin, serumon Myoglobin [Mass/Vol] 3593.6 ng/mL High 14.3 - 65.8 ng/mL [facility] Neutrophil cytoplasmic Ab pa dev IF (S)on 11-08-2024 c-ANCA Negative Negative [facility] Neutrophil cytoplasmic Ab.perinuclear IF Ql (S) Negative Negative [facility] No Panel Informationon 11-08 [facility] PHOSPHORUSon 11-08-2024 Phosphate [Mass/Vol] 2.7 mg/dL Normal 2.4-4.9 [facility] Comment on above: Performed By: #### C QUIQUE, CMP, 70843-1, 87032-0, TSHR, 25996-5, 2777-1, 2639-3, 7-6, 302-7 #### [facility] ([id number]) [address], [address] [place] [address] POTASSIUMon 11-08-2024 Potassium [Moles/Vol] 3.8 mmol/L Normal 3.5-5.0 [facility] Comment on above: Performed By: #### C BCA, CMP, 30113-7, 34079-6, TSHR, 28144-2, 2777-1, 2639-3, 2157-6, 3024-7 #### [facility] ([id number]) [address], [address] [place] [address] Potassium [Moles/Vol] 4.0 mmol/L Normal 3.5-5.0 [facility] Comment on above: Performed By: #### C BCA, CMP, 15865-5, 28358-7, TSHR, 55752-8, 2777-1, 2639-3, 2157-6, 3024-7 #### [facility] ([id number]) [address], [address] [place] [address] Potassium [Moles/Vol] 3.8 mmol/L Normal 3.5-5.0 [facility] Comment on above: Performed By: #### C BCA, CMP, 28437-3, 00046-9, TSHR, 52370-5, 2777-1, 2639-3, 2157-6, 3024-7 #### [facility] ([id number]) [address], [address] [place] [address] Phosphoruson 11-08-2024 Phosphate [Mass/Vol] 2.7 mg/dL 2.4 - 4 .9 mg/dL [facility] Potassiumon 11-08-2024 Potassium [Moles/Vol] 3.8 mmol/L 3.5 - 5.0 mmol/L [facility] Potassium [Moles/Vol] 4 mmol/L 3.5 - 5.0 mmol/L [facility] Potassium [Moles/Vol] 3.8 mmol/L 3.5 - 5.0 mmol/L [facility] Potassium [Moles/Vol]on [facility] VITAMIN B12on 11-08-2024 Cobalamin (Vitamin B12) [Mass/Vol] 525 pg/mL Normal 180-914 [facility] Comment on above: Performed By: #### C BCA, CMP, 40479-6, 57658-1, TSHR, 13817-1, 2777-1, 2639-3, 2157-6, 3024-7 #### [facility] ([id number]) [address], [address] [place] [address] Vitamin B12on 11-08-2024 Cobalamin (Vitamin B12) [Mass/Vol] 525 pg/mL 180 - 914 pg/mL [facility] RAUL Screen w/ Reflexon 11-07 Nuclear Ab IA Ql (S) Negative Negativ e^Nega tive [facility] Aldolaseon 11-07-2024 Aldolase [Catalytic activity/Vol] 241 mU/mL High 1.2 - 7.6 U/L [facility] Aldolase [Catalytic activity /Vol]on 11-07-2024 Interpretation and review of laboratory results Abnormal [facility] CBC AND AUTO DIFFon 11-07-19 25 ABSOLUTE BASOPHIL 0.1 X10E9/L Normal 0.0-0.[address] [facility] Comment on above: Performed By: #### C QUIQUE, CMP, 27254-1, 46055-7, TSHR, 36945-9, 2777-1, 2639-3, 2157-6, 3024-7 #### [facility] ([id number]) [address], [address] [place] [address] ABSOLUTE NEUTROPHIL 16.3 X10E9/L High 1.5-6.6 [facility] Comment on above: Performed By: #### C QUIQUE, CMP, 04170-8, 41981-0, TSHR, 98982-4, 2777-1, 2639-3, 2157-6, 3024-7 #### [facility] ([id number]) [address], [address] [place] [address] Basophils/100 WBC (Bld) 0.4 % Normal [facility] Comment on above: Performed By: #### C BCA, CMP, 89266-9, 41111-5, TSHR, 54705-9, 2777-1, 2639-3, 2157-6, 3024-7 #### [facility] ([id number]) [address], [address] [place] [address] Eosinophils (Bld) [#/Vol] 0.0 10*3/uL Normal 0.0-0.4 [facility] Comment on above: Performed By: #### C BCA, CMP, 31680-8, 46878-4, TSHR, 54851-4, 2777-1, 2639-3, 2157-6, 3024-7 #### [facility] ([id number]) [address], [address] [place] [address] Eosinophils/100 WBC (Bld) 0.0 % Normal [facility] Comment on above: Performed By: #### C BCA, CMP, 98310-0, 40403-8, TSHR, 37983-4, 2777-1, 2639-3, 2157-6, 3024-7 #### [facility] ([id number]) [address], [address] [place] [address] Erythrocyte distribution width (RBC) [Ratio] 13.4 % Normal 11.5-15.0 [facility] Comment on above: Performed By: #### C BCA, CMP, 99055-9, 20017-8, TSHR, 13741-1, 2777-1, 2639-3, 2157-6, 3024-7 #### [facility] ([id number]) [address], [address] [place] [address] Hematocrit (Bld) [Volume fraction] 30.8 % Low 35-47 [facility] Comment on above: Performed By: #### C BCA, CMP, 10049-9, 52060-5, TSHR, 76794-8, 2777-1, 2639-3, 2157-6, 3024-7 #### [facility] ([id number]) [address], [address] [place] [address] Hemoglobin (Bld) [Mass/Vol] 10.5 g/dL Low 11.7-15.5 [facility] Comment on above: Performed By: #### C BCA, CMP, 47084-6, 54962-6, TSHR, 42055-3, 2777-1, 2639-3, 2157-6, 3024-7 #### [facility] ([id number]) [address], [address] [place] [address] Lymphocytes (Bld) [#/Vol] 0.9 10*3/uL Low 1.0-3.5 [facility] Comment on above: Performed By: #### C BCA, CMP, 11777-3, 30933-6, TSHR, 04675-5, 2777-1, 2639-3, 2157-6, 3023-7 #### [facility] ([id number]) [address], [address] [place] [address] Lymphocytes/100 WBC (Bld) 5.2 % Normal [facility] Comment on above: Performed By: #### C BCA, CMP, 12740-4, 62680-7, TSHR, 80268-9, 2777-1, 2639-3, 215-6, 3024-04 #### [facility] ([id number]) [address], [address] [place] [address] MCH (RBC) [Entitic mass] 30.6 pg Normal 27-34 [facility] Comment on above: Performed By: #### C BCA, CMP, 49145-5, 23416-0, TSHR, 75007-3, 2777-1, 2639-3, 2157-6, 3023- #### [facility] ([id number]) [address], [address] [place] [address] MCHC (RBC) [Mass/Vol] 34.1 g/dL Normal 32-36 [facility] Comment on above: Performed By: #### C BCA, CMP, 34172-0, 56689-2, TSHR, 02260-3, 2777-1, 2639-3, 2157-6, 3023-7 #### [facility] ([id number]) [address], [address] [place] [address] MCV (RBC) [Entitic vol] 90 fL Normal 80-100 [facility] Comment on above: Performed By: #### C BCA, CMP, 55492-9, 78325-1, TSHR, 77933-7, 2777-1, 2639-3, 2157-6, 3024-7 #### [facility] ([id number]) [address], [address] [place] [address] Monocytes (Bld) [#/Vol] 0.8 10*3/uL Normal 0-0.9 [facility] Comment on above: Performed By: #### C BCA, CMP, 92132-8, 20083-3, TSHR, 58360-9, 2777-1, 2639-3, 2157-6, 3024-7 #### [facility] ([id number]) [address], [address] [place] [address] Monocytes/100 WBC (Bld) 4.5 % Normal [facility] Comment on above: Performed By: #### C BCA, CMP, 79531-5, 81206-8, TSHR, 08753-8, 2777-1, 2639-3, 2157-6, 3024-7 #### [facility] ([id number]) [address], [address] [place] [address] Neutrophils/100 WBC (Bld) 89.9 % Normal [facility] Comment on above: Performed By: #### C BCA, CMP, 42955-7, 35880-2, TSHR, 31159-0, 2777-1, 2639-3, 2157-6, 3024-7 #### [facility] ([id number]) [address], [address] [place] [address] Platelet mean volume (Bld) [Entitic vol] 8.7 fL Normal 7-12 [facility] Comment on above: Performed By: #### C BCA, CMP, 16314-4, 05021-2, TSHR, 36952-7, 2777-1, 2639-3, 2157-6, 3024-7 #### [facility] ([id number]) [address], [address] [place] [address] Platelets (Bld) [#/Vol] 243 10*3/uL Normal 150-450 [facility] Comment on above: Performed By: #### C BCA, CMP, 53522-9, 33852-1, TSHR, 35245-8, 2777-1, 2639-3, 2157-6, 3024-7 #### [facility] ([id number]) [address], [address] [place] [address] RBC COUNT 3.44 X10E12/L Low 3.80-5.20 [facility] Comment on above: Performed By: #### C BCA, CMP, 80546-0, 31460-9, TSHR, 26232-5, 2777-1, 2639-3, 2157-6, 3024-7 #### [facility] ([id number]) [address], [address] [place] [address] WBC (Bld) [#/Vol] 18.1 10*3/uL High 4.0-11.0 [facility] Comment on above: Performed By: #### C BCA, CMP, 23012-2, 46078-2, TSHR, 76657-2, 2777-1, 2639-3, 2157-6, 3024-7 #### [facility] ([id number]) [address], [address] [place] [address] CBC auto differentialon 02-0 -2024 Basophils (Bld) [#/Vol] 0.1 10*3/uL [facility] Basophils/100 WBC (Bld) 0.4 % [facility] Eosinophils (Bld) [#/Vol] 0 10*3/uL [facility] Eosinophils/100 WBC (Bld) 0 % [facility] Erythrocyte distribution width (RBC) [Ratio] 13.4 % 11.5 - 15.0 % [facility] Hematocrit (Bld) [Volume fraction] 30.8 % Low 35 - 47 % [facility] Hemoglobin (Bld) [Mass/Vol] 10.5 g/dL Low 11.7 - 15.5 g/dL [facility] Interpretation and review of laboratory results Abnormal [facility] Lymphocytes (Bld) [#/Vol] 0.9 10*3/uL Low [facility] Lymphocytes/100 WBC (Bld) 5.2 % [facility] MCH (RBC) [Entitic mass] 30.6 pg 27 - 34 pg [facility] MCHC (RBC) [Mass/Vol] 34.1 g/dL 32 - 36 g/dL [facility] MCV (RBC) [Entitic vol] 90 fL 80 - 100 fL [facility] Monocytes (Bld) [#/Vol] 0.8 10*3/uL [facility] Monocytes/100 WBC (Bld) 4.5 % [facility] Neutrophils (Bld) [#/Vol] 16.3 10*3/uL High [facility] Neutrophils/100 WBC (Bld) 89.9 % [facility] Platelet mean volume (Bld) [Entitic vol] 8.7 fL 7 - 12 fL [facility] Platelets (Bld) [#/Vol] 243 10*3/uL [facility] RBC (Bld) [#/Vol] 3.44 10*6/uL Low [facility] WBC corrected for nucl RBC Auto (Bld) [#/Vol] 18.1 High [facility] CK Totalon 11-07-2024 CK [Catalytic activity/Vol] 01171 U/L High 24 - 170 U/L [facility] CK [Catalytic activity/Vol] 73521 U/L High 24 - 170 U/L [facility] CK [Catalytic activity/Vol]o n 11-07-2024 Interpretation and review of laboratory results Abnormal [facility] Interpretation and review of laboratory results Abnormal [facility] CPK 87112 U/L High 24-170 [facility] Comment on above: Performed By: #### C BCA, CMP, 23535-4, 18482-5, TSHR, 63666-1, 2777-1, 2639-3, 2157-6, 3024-7 #### [facility] ([id number]) [address], [address] [place] [address] CPK [address]9538 U/L High 24-170 [facility] Comment on above: Performed By: #### C BCA, CMP, 79930-7, 71155-4, TSHR, 71895-7, 2777-1, 2639-3, 2157-6, 3024-7 #### [facility] ([id number]) [address] [place] [address] COMPREHENSIVE METABOLIC PANE Elvin 11-07-2024 Albumin [Mass/Vol] 3.8 g/dL Normal 3.2-5.[address] [facility] Comment on above: Performed By: #### C BCA, CMP, 15420-5, 62168-1, TSHR, 91571-7, 2777-1, 2639-3, 2157-6, 3024-7 #### [facility] ([id number]) [address], [address] [place] [address] ALP [Catalytic activity/Vol] 61 U/L Normal 39-130 [facility] Comment on above: Performed By: #### C BCA, CMP, 27962-0, 06577-3, TSHR, 82180-2, 2777-1, 2639-3, 2157-6, 3024-7 #### [facility] ([id number]) [address], [address] [place] [address] ALT [Catalytic activity/Vol] 1446 U/L High 0-31 [facility] Comment on above: Performed By: #### C BCA, CMP, 19603-5, 23751-7, TSHR, 54492-4, 2777-1, 2639-3, 2157-6, 3024-7 #### [facility] ([id number]) [address], [address] [place] [address] Anion gap [Moles/Vol] 8 mmol/L Normal 5-15 [facility] Comment on above: Performed By: #### C BCA, CMP, 76291-2, 50068-1, TSHR, 34510-1, 2777-1, 2639-3, 2157-6, 302-7 #### [facility] ([id number]) [address], [address] [place] [address] AST [Catalytic activity/Vol] 783 U/L High 0-41 [facility] Comment on above: Performed By: #### C BCA, CMP, 36354-6, 21482-5, TSHR, 06536-3, 2777-1, 2639-3, 2157-6, 3023-7 #### [facility] ([id number]) [address], [address] [place] [address] Bilirubin [Mass/Vol] 0.5 mg/dL Normal 0.3-1.2 [facility] Comment on above: Performed By: #### C BCA, CMP, 94095-0, 32254-1, TSHR, 54860-2, 2777-1, 2639-3, 2157-6, 302-7 #### [facility] ([id number]) [address], [address] [place] [address] Calcium [Mass/Vol] 8.4 mg/dL Low 8.5-10.[address] [facility] Comment on above: Performed By: #### C BCA, CMP, 18376-3, 70030-2, TSHR, 29664-1, 2777-1, 2639-3, 2157-6, 3024-7 #### [facility] ([id number]) [address], [address] [place] [address] Chloride [Moles/Vol] 103 mmol/L Normal 98-109 [facility] Comment on above: Performed By: #### C BCA, CMP, 84227-0, 51399-6, TSHR, 37804-5, 2777-1, 2639-3, 2157-6, 3024-7 #### [facility] ([id number]) [address], [address] [place] [address] CO2 [Moles/Vol] 31 mmol/L Normal 22-32 [facility] Comment on above: Performed By: #### C BCA, CMP, 93804-3, 03800-6, TSHR, 22710-5, 2777-1, 2639-3, 2157-6, 3024-7 #### [facility] ([id number]) [address], [address] [place] [address] Creatinine [Mass/Vol] 2.00 mg/dL High 0.40-1.00 [facility] Comment on above: Result Comment: METH OD TRACEABLE TO IDMS STANDARD Performed By: #### C BCA, CMP, 75749-1, 78560-4, TSHR, 14258-0, 2777-1, 2639-3, 2157-6, 3024-7 #### [facility] ([id number]) [address], [address] [place] [address] GFR/1.73 sq M.predicted among non-blacks MDRD (S/P/Bld) [Vol rate/Area] 35 mL/min/{1.73_m2} Low >59 [facility] Comment on above: Result Comment: Reported eGFR is based on the CKD-EPI 2020 equation that does not use a race coefficient. Performed By: #### C BCA, CMP, 03416-9, 59118-7, TSHR, 56996-3, 2777-1, 2639-3, 2157-6, 3024-7 #### [facility] ([id number]) [address], [address] [place] [address] Glucose [Mass/Vol] 137 mg/dL High 65-[address] [facility] Comment on above: Performed By: #### C BCA, CMP, 71498-3, 77372-8, TSHR, 76945-1, 2777-1, 2639-3, 2157-6, 3024-7 #### [facility] ([id number]) [address], [address] [place] [address] Potassium [Moles/Vol] 4.1 mmol/L Normal 3.5-5.0 [facility] Comment on above: Performed By: #### C BCA, CMP, 25557-3, 12405-7, TSHR, 72612-3, 2777-1, 2639-3, 2157-6, 3024-7 #### [facility] ([id number]) [address], [address] [place] [address] Protein [Mass/Vol] 6.2 g/dL Normal 6.0-8.[address] [facility] Comment on above: Performed By: #### C BCA, CMP, 66956-0, 12848-5, TSHR, 46361-2, 2777-1, 2639-3, 2157-6, 3024-7 #### [facility] ([id number]) [address], [address] [place] [address] Sodium [Moles/Vol] 142 mmol/L Normal 134-[address] [facility] Comment on above: Performed By: #### C BCA, CMP, 55155-5, 19698-8, TSHR, 93996-2, 2777-1, 2639-3, 2157-6, 3024-7 #### [facility] ([id number]) [address], [address] [place] [address] Urea nitrogen [Mass/Vol] 29 mg/dL High 5-23 [facility] Comment on above: Performed By: #### C BCA, CMP, 45445-0, 10578-8, TSHR, 30197-3, 2777-1, 2639-3, 2157-6, 3024-7 #### [facility] ([id number]) [address], [address] [place] [address] Comprehensive metabolic pane elvin 11-07-2024 Albumin [Mass/Vol] 3.8 g/dL 3.2 - 5.3 g/dL [facility] ALP [Catalytic activity/Vol] 61 U/L 39 - 130 U/L [facility] ALT No additional P-5'-P [Catalytic activity/Vol] 1446 U/L High 0 - 31 U/L [facility] Anion gap [Moles/Vol] 8 mmol/L 5 - 15 mmol/L [facility] AST [Catalytic activity/Vol] 783 U/L High 0 - 41 U/L [facility] Bilirubin [Mass/Vol] 0.5 mg/dL 0.3 - 1 .2 mg/dL [facility] Calcium [Mass/Vol] 8.4 mg/dL Low 8.5 - 10. 5 mg/dL [facility] Chloride [Moles/Vol] 103 mmol/L 98 - 10 9 mmol/L [facility] CO2 [Moles/Vol] 31 mmol/L 22 - 32 mmol/L [facility] Creatinine [Mass/Vol] 2 mg/dL High 0.40 - 1.00 mg/dL [facility] eGFR (CKD-EPI)non-race dependent 35 Low - PINF [facility] Glucose [Mass/Vol] 137 mg/dL High 65 - 99 mg/dL [facility] Interpretation and review of laboratory results Abnormal [facility] Potassium [Moles/Vol] 4.1 mmol/L 3.5 - 5.0 mmol/L [facility] Protein [Mass/Vol] 6.2 g/dL 6.0 - 8.0 g/dL [facility] Sodium [Moles/Vol] 142 mmol/L 134 - 146 mmol/L [facility] Urea nitrogen [Mass/Vol] 29 mg/dL High 5 - 23 mg/dL [facility] CARO Panelon 11-07-2024 Anileridine Ql (U) [facility] Ribonucleoprotein extractable nuclear IgG Qn (S) [facility] SCL-70 extractable nuclear Ab Ql (S) [facility] Sjogrens syndrome-A extractable nuclear Ab Qn (S) [facility] Sjogrens syndrome-B extractable nuclear IgG Qn (S) [facility] Flores extractable nuclear IgG Qn (S) [facility] FREE LIGHT CHAINSon 11-07-19 25 FREE WILFREDO/LAMBD RATIO 0.92 Normal 0.26-1.65 [facility] Comment on above: Performed By: #### C BCA, CMP, 41653-5, 53917-3, TSHR, 12352-3, 2777-1, 2639-3, 2157-6, 3024-7 #### [facility] ([id number]) [address], [address] [place] [address] FREE KAPPA LT CHAINS 0.76 mg/dL Normal 0.33-1.94 [facility] Comment on above: Performed By: #### C BCA, CMP, 03772-4, 31696-1, TSHR, 61309-8, 2777-1, 2639-3, 2157-6, 3024-7 #### [facility] ([id number]) [address], [address] [place] [address] FREE LAMBDA LT CHAINS 0.83 mg/dL Normal 0.57-2.63 [facility] Comment on above: Performed By: #### C BCA, CMP, 65860-3, 81922-8, TSHR, 53203-9, 2777-1, 2639-3, 2157-6, 3024-7 #### [facility] ([id number]) [address], [address] [place] [address] Free light chainson 11-07-19 25 Immunoglobulin light chains.kappa.free (S) [Mass/Vol] 0.76 mg/dL 0.33 - 1.94 mg/dL [facility] Immunoglobulin light chains.kappa.free/Imm unoglobulin light chains.lambda (S) [Mass ratio] 0.92 0.26 - 1.65 [facility] Immunoglobulin light chains.lambda [Mass/Vol] 0.83 mg/dL 0.57 - 2.63 mg/dL [facility] Glomerular basement membrane IgG ABon 11-07-2024 Glomerular basement membrane IgG Qn (S) NINF [facility] Glomerular basement membrane IgG Qn (S)on 11-07-2024 [facility] Glucose Glucometer (BldC) [M ass/Vol]on 11-07-2024 Glucose [Mass/Vol] 107 mg/dL High 65 - 99 mg/dL [facility] Interpretation and review of laboratory results Abnormal [facility] Glucose [Mass/Vol] 90 mg/dL 65 - 99 mg/dL [facility] Glucose [Mass/Vol] 107 mg/dL High 65-[address] [facility] Glucose [Mass/Vol] 90 mg/dL Normal 65-[address] [facility] Glucose [Mass/Vol] 138 mg/dL High 65 - 99 mg/dL [facility] Interpretation and review of laboratory results Abnormal [facility] Glucose [Mass/Vol] 138 mg/dL High 65-[address] [facility] Ionized magnesiumon 11-07-19 Magnesium Ionized ISE (Bld) [Moles/Vol] 0.74 mmol/L 0.45 - 0.74 mmol/L [facility] MAGNESIUMon 11-07-2024 Magnesium [Mass/Vol] 1.9 mg/dL Normal 1.8-2.6 [facility] Comment on above: Performed By: #### C BCA, CMP, 46494-7, 47771-8, TSHR, 31018-8, 2777-1, 2639-3, 2157-6, 3024-7 #### [facility] ([id number]) [address], [address] [place] [address] Magnesiumon 11-07-2024 Magnesium [Mass/Vol] 1.9 mg/dL 1.8 - 2 .6 mg/dL [facility] Magnesium Ionized ISE (Bld) [Moles/Vol]on 11-07-2024 [facility] Magnesium [Moles/Vol] 0.74 mmol/L Normal 0.45-0.74 [facility] Comment on above: Result Comment: NEW REFERENCE RANGE Performed By: #### C BCA, CMP, 73966-4, 66928-2, TSHR, 35361-4, 2777-1, 2639-3, 2157-6, 3024-7 #### [facility] ([id number]) [address], [address] [place] [address] Myoglobin [Mass/Vol]on 11-07 Interpretation and review of laboratory results Abnormal [facility] SERUM MYOGLOBIN 2484.2 ng/mL High 14.3-65.[address] [facility] Comment on above: Performed By: #### C BCA, CMP, 76444-1, 27744-5, TSHR, 00940-0, 2777-1, 2639-3, 2157-6, 3024-7 #### [facility] ([id number]) [address], [address] [place] [address] Myoglobin, serumon Myoglobin [Mass/Vol] 2484.2 ng/mL High 14.3 - 65.8 ng/mL [facility] Neutrophil cytoplasmic Ab pa dev IF (S)on 11-07-2024 c-ANCA Negative Normal Negative [facility] Comment on above: Performed By: #### C BCA, CMP, 11092-8, 53562-7, TSHR, 46230-1, 2777-1, 2639-3, 2157-6, 3024-7 #### [facility] ([id number]) [address], [address] [place] [address] p-ANCA Negative Normal Negative [facility] Comment on above: Result Comment: NOTE Negative for cANCA and pANCA patterns by immunofluorescence. ADDITIONAL INFORMATION This test was developed and its performance characteristics determined by [facility] in a manner consistent with CLIA requirements. This test has not been cleared or approved by the U.S. Food and Drug Administration. Test Performed by: [facility] [address] [place] [address] [employer] Feeder: Ulysses Juarez Ph.D.; CLIA# [id number] Performed By: #### C BCA, CMP, 08781-6, 53370-8, TSHR, 56912-3, 2777-1, 2639-3, 2157-6, 3024-7 #### [facility] ([id number]) [address], [address] [place] [address] No Panel Informationon 11-07 [facility] PHOSPHORUSon 11-07-2024 Phosphate [Mass/Vol] 3.1 mg/dL Normal 2.4-4.9 [facility] Comment on above: Performed By: #### C BCA, CMP, 19028-1, 26150-1, TSHR, 63000-5, 2777-1, 2639-3, 2157-6, 3024-7 #### [facility] ([id number]) [address], [address] [place] [address] POTASSIUMon 11-07-2024 Potassium [Moles/Vol] 3.1 mmol/L Low 3.5-5.0 [facility] Comment on above: Performed By: #### C BCA, CMP, 85451-8, 95890-0, TSHR, 58391-7, 2777-1, 2639-3, 2157-6, 3024-7 #### [facility] ([id number]) [address], [address] [place] [address] Potassium [Moles/Vol] 3.5 mmol/L Normal 3.5-5.0 [facility] Comment on above: Performed By: #### C BCA, CMP, 55368-8, 15316-9, TSHR, 41209-7, 2777-1, 2639-3, 2157-6, 3024-7 #### [facility] ([id number]) [address], [address] [place] [address] Potassium [Moles/Vol] 3.8 mmol/L Normal 3.5-5.0 [facility] Comment on above: Performed By: #### C BCA, CMP, 90206-0, 11890-6, TSHR, 25095-8, 2777-1, 2639-3, 2157-6, 3024-7 #### [facility] ([id number]) [address], [address] [place] [address] Phosphoruson 11-07-2024 Phosphate [Mass/Vol] 3.1 mg/dL 2.4 - 4 .9 mg/dL [facility] Potassiumon 11-07-2024 Potassium [Moles/Vol] 3.1 mmol/L Low 3.5 - 5.0 mmol/L [facility] Potassium [Moles/Vol] 3.5 mmol/L 3.5 - 5.0 mmol/L [facility] Potassium [Moles/Vol] 3.8 mmol/L 3.5 - 5.0 mmol/L [facility] Potassium [Moles/Vol]on Interpretation and review of laboratory results Abnormal [facility] Protein electrophoresis, ser umon 11-07-2024 Albumin [Mass/Vol] 3.4 g/dL 3.4 - 5.3 g/dL [facility] Alpha 1 globulin Elph [Mass/Vol] 0.4 g/dL 0.1 - 0.4 g/dL [facility] Alpha 2 globulin Elph [Mass/Vol] 0.8 g/dL 0.4 - 1.1 g/dL [facility] Beta globulin Elph [Mass/Vol] 0.7 g/dL 0.5 - 1.2 g/dL [facility] Gamma globulin Elph [Mass/Vol] 0.6 g/dL 0.5 - 1.6 g/dL [facility] Interpretation and review of laboratory results Abnormal [facility] Pathologist interpretation (Bld) [Interp] Unremarkable protein distribution, no monoclonal bands. [facility] Protein [Mass/Vol] 5.9 g/dL Low 6.0 - 8.0 g/dL [facility] Albumin [Mass/Vol] REQUEST CREDITED 3.4 - 5.3 g/dL [facility] Alpha 1 globulin Elph [Mass/Vol] REQUEST CREDITED 0.1 - 0.4 g/dL [facility] Alpha 2 globulin Elph [Mass/Vol] REQUEST CREDITED 0.4 - 1.1 g/dL [facility] Beta globulin Elph [Mass/Vol] REQUEST CREDITED 0.5 - 1.2 g/dL [facility] Gamma globulin Elph [Mass/Vol] REQUEST CREDITED 0.5 - 1.6 g/dL [facility] Pathologist interpretation (Bld) [Interp] REQUEST CREDITED [facility] Protein [Mass/Vol] 6.3 g/dL 6.0 - 8.0 g/dL [facility] SERUM PROTEIN ELECTROPHORESI Son 11-07-2024 Albumin [Mass/Vol] 3.4 g/dL Normal 3.4-5.[address] [facility] Comment on above: Performed By: #### C BCA, CMP, 18715-8, 35113-9, TSHR, 47086-7, 2777-1, 2639-3, 2157-6, 3024-7 #### [facility] ([id number]) [address], [address] [place] [address] ALPHA 1 GLOBULIN 0.4 g/dL Normal 0.1-0.[address] [facility] Comment on above: Performed By: #### C BCA, CMP, 95610-2, 04129-2, TSHR, 08216-2, 2777-1, 2639-3, 2157-6, 3024-7 #### [facility] ([id number]) [address], [address] [place] [address] ALPHA 2 GLOBULIN 0.8 g/dL Normal 0.4-1.[address] [facility] Comment on above: Performed By: #### C BCA, CMP, 76812-0, 21301-7, TSHR, 71279-5, 2777-1, 2639-3, 2157-6, 3024-7 #### [facility] ([id number]) [address], [address] [place] [address] BETA GLOBULIN 0.7 g/dL Normal 0.5-1.2 [facility] Comment on above: Performed By: #### C BCA, CMP, 75300-7, 50080-4, TSHR, 52154-1, 2777-1, 2639-3, 2157-6, 3024-7 #### [facility] ([id number]) [address], [address] [place] [address] GAMMA GLOBULIN 0.6 g/dL Normal 0.5-1.6 [facility] Comment on above: Performed By: #### C BCA, CMP, 43988-3, 80776-2, TSHR, 21964-3, 2777-1, 2639-3, 2157-6, 3024-7 #### [facility] ([id number]) [address], [address] [place] [address] PROT. ELECTROPHORESIS INTERP Unremarkable protein distribution, no monoclonal bands. Normal [facility] Comment on above: Performed By: #### C BCA, CMP, 95727-3, 26943-7, TSHR, 72042-6, 2777-1, 2639-3, 2157-6, 3024-7 #### [facility] ([id number]) [address], [address] [place] [address] Protein [Mass/Vol] 5.9 g/dL Low 6.0-8.[address] [facility] Comment on above: Performed By: #### C QUIQUE SYED, 83610-4, 75392-9, TSHR, 03839-4, 2777-1, 2639-3, 2157-6, 3024-7 #### [facility] ([id number]) [address] [place] [address] Aldolase [Catalytic activity /Vol]on 11-06-2024 ALDOLASE 241.0 U/L High 1.2-7.6 [facility] Comment on above: Result Comment: NOTE REFERENCE INTERVAL: Aldolase Access complete set of age- and/or gender-specific reference intervals for this test in the [facility] Directory (appCREAR). Performed By: [employer] [address] [place] [address] [employer] Operator: Jose Juan Rasheed MD, PhD CLIA Number: [id number] Performed By: #### C QUIQUE SYED, 06156-7, 61875-1, TSHR, 89061-7, 2777-1, 2639-3, 2157-6, 3024-7 #### [facility] ([id number]) [address], [address] [place] [address] C DIFFICILE BY PCRon 025 C. difficile toxin genes JACKSON+probe Ql (Stl) TOXIGENIC C DIFF Negative (qualifier value) 027 NAP1 Negative (qualifier value) Normal PRNEG [facility] Comment on above: Performed By: #### C QUIQUE, SYED, 56297-4, 11318-6, TSHR, 83039-5, 2777-1, 2639-3, 2157-6, 3024-7 #### [facility] ([id number]) [address], [address] [place] [address] C-reactive proteinon 025 CRP [Mass/Vol] 5.1 mg/dL High 0.000 - 0.744 mg/dL [facility] C. difficile toxin genes JACKSON +probe Ql (Stl)on 11-06-2024 [facility] C3 complementon 11-06-2024 Complement C3 [Mass/Vol] 104 mg/dL 86 - 184 mg/dL [facility] C4 complementon 11-06-2024 Complement C4 [Mass/Vol] 35 mg/dL 16 - 47 mg/dL [facility] CBC AND AUTO DIFFon 11-06-19 25 ABSOLUTE BASOPHIL 0.0 X10E9/L Normal 0.0-0.[address] [facility] Comment on above: Performed By: #### C BCA, CMP, 72434-0, 09617-6, TSHR, 78380-8, 2777-1, 2639-3, 2157-6, 3024-7 #### [facility] ([id number]) [address], [address] [place] [address] ABSOLUTE NEUTROPHIL 19.9 X10E9/L High 1.5-6.6 [facility] Comment on above: Performed By: #### C BCA, CMP, 00939-0, 18752-4, TSHR, 22233-6, 2777-1, 2639-3, 2157-6, 3024-7 #### [facility] ([id number]) [address] [place] [address] Eosinophils (Bld) [#/Vol] 0.0 10*3/uL Normal 0.0-0.4 [facility] Comment on above: Performed By: #### C BCA, CMP, 29674-4, 64762-6, TSHR, 32755-1, 2777-1, 2639-3, 2157-6, 3024-7 #### [facility] ([id number]) [address] [place] [address] Eosinophils/100 WBC (Bld) 0.0 % Normal [facility] Comment on above: Performed By: #### C BCA, CMP, 85911-8, 47132-5, TSHR, 84847-4, 2777-1, 2639-3, 2157-6, 3024-7 #### [facility] ([id number]) [address], [address] [place] [address] Lymphocytes/100 WBC (Bld) 3.0 % Normal [facility] Comment on above: Performed By: #### C BCA, CMP, 61469-1, 01162-8, TSHR, 08943-8, 2777-1, 2639-3, 2157-6, 3024-7 #### [facility] ([id number]) [address], [address] [place] [address] Monocytes (Bld) [#/Vol] 1.0 10*3/uL High 0-0.9 [facility] Comment on above: Performed By: #### C BCA, CMP, 75107-2, 06449-8, TSHR, 96955-3, 2777-1, 2639-3, 2157-6, 3023-7 #### [facility] ([id number]) [address], [address] [place] [address] RBC COUNT 3.42 X10E12/L Low 3.80-5.20 [facility] Comment on above: Performed By: #### C BCA, CMP, 26510-7, 29633-4, TSHR, 35982-5, 2777-1, 2639-3, 2157-6, 3023-7 #### [facility] ([id number]) [address], [address] [place] [address] WBC (Bld) [#/Vol] 21.6 10*3/uL High 4.0-11.0 [facility] Comment on above: Performed By: #### C BCA, CMP, 36896-0, 88039-8, TSHR, 81523-8, 2777-1, 2639-3, 2157-6, 3023-7 #### [facility] ([id number]) [address], [address] [place] [address] Basophils/100 WBC (Bld) 0.2 % Normal [facility] Comment on above: Performed By: #### C BCA, CMP, 72906-2, 29027-3, TSHR, 17141-4, 2777-1, 2639-3, 2157-6, 3024-7 #### [facility] ([id number]) [address], [address] [place] [address] Erythrocyte distribution width (RBC) [Ratio] 13.3 % Normal 11.5-15.0 [facility] Comment on above: Performed By: #### C BCA, CMP, 60956-5, 20789-1, TSHR, 38596-0, 2777-1, 2639-3, 2157-6, 3024-7 #### [facility] ([id number]) [address], [address] [place] [address] Hematocrit (Bld) [Volume fraction] 30.3 % Low 35-47 [facility] Comment on above: Performed By: #### C BCA, CMP, 02394-1, 94725-0, TSHR, 41447-1, 2777-1, 2639-3, 2157-6, 3024-7 #### [facility] ([id number]) [address], [address] [place] [address] Hemoglobin (Bld) [Mass/Vol] 10.4 g/dL Low 11.7-15.5 [facility] Comment on above: Performed By: #### C BCA, CMP, 58643-0, 59690-8, TSHR, 01580-6, 2777-1, 2639-3, 2157-6, 3024-7 #### [facility] ([id number]) [address] [place] [address] Lymphocytes (Bld) [#/Vol] 0.7 10*3/uL Low 1.0-3.5 [facility] Comment on above: Performed By: #### C BCA, CMP, 49790-8, 47699-7, TSHR, 80131-0, 2777-1, 2639-3, 2157-6, 3024-7 #### [facility] ([id number]) [address], [address] [place] [address] MCH (RBC) [Entitic mass] 30.5 pg Normal 27-34 [facility] Comment on above: Performed By: #### C BCA, CMP, 75292-5, 77948-5, TSHR, 76106-9, 2777-1, 2639-3, 2157-6, 3024-7 #### [facility] ([id number]) [address], [address] [place] [address] MCHC (RBC) [Mass/Vol] 34.4 g/dL Normal 32-36 [facility] Comment on above: Performed By: #### C BCA, CMP, 98247-8, 56865-4, TSHR, 68302-8, 2777-1, 2639-3, 2157-6, 3024-7 #### [facility] ([id number]) [address], [address] [place] [address] MCV (RBC) [Entitic vol] 89 fL Normal 80-100 [facility] Comment on above: Performed By: #### C BCA, CMP, 42359-7, 05112-7, TSHR, 32575-9, 2777-1, 2639-3, 2157-6, 3024-7 #### [facility] ([id number]) [address], [address] [place] [address] Monocytes/100 WBC (Bld) 4.6 % Normal [facility] Comment on above: Performed By: #### C BCA, CMP, 21823-6, 08058-5, TSHR, 58794-7, 2777-1, 2639-3, 2157-6, 3024-7 #### [facility] ([id number]) [address], [address] [place] [address] Neutrophils/100 WBC (Bld) 92.2 % Normal [facility] Comment on above: Performed By: #### C BCA, CMP, 89380-2, 29224-8, TSHR, 57924-7, 2777-1, 2639-3, 2157-6, 3024-7 #### [facility] ([id number]) [address], [address] [place] [address] Platelet mean volume (Bld) [Entitic vol] 7.9 fL Normal 7-12 [facility] Comment on above: Performed By: #### C BCA, CMP, 48658-7, 24036-1, TSHR, 15425-6, 2777-1, 2639-3, 2157-6, 3024-7 #### [facility] ([id number]) [address], [address] [place] [address] Platelets (Bld) [#/Vol] 242 10*3/uL Normal 150-450 [facility] Comment on above: Performed By: #### C BCA, CMP, 90684-6, 16785-9, TSHR, 65106-0, 2777-1, 2639-3, 2157-6, 3024-7 #### [facility] ([id number]) [address], [address] [place] [address] CBC auto differentialon Basophils (Bld) [#/Vol] 0 10*3/uL [facility] Eosinophils (Bld) [#/Vol] 0 10*3/uL [facility] Eosinophils/100 WBC (Bld) 0 % [facility] Interpretation and review of laboratory results Abnormal [facility] Lymphocytes/100 WBC (Bld) 3 % [facility] Monocytes (Bld) [#/Vol] 1 10*3/uL High [facility] Neutrophils (Bld) [#/Vol] 19.9 10*3/uL High [facility] RBC (Bld) [#/Vol] 3.42 10*6/uL Low [facility] WBC corrected for nucl RBC Auto (Bld) [#/Vol] 21.6 High [facility] CK Totalon 11-06-2024 CK [Catalytic activity/Vol] 20247 U/L High 24 - 170 U/L [facility] CK [Catalytic activity/Vol]o n 11-06-2024 Interpretation and review of laboratory results Abnormal [facility] COMPREHENSIVE METABOLIC PANE Elvin 11-06-2024 ALT [Catalytic activity/Vol] 1426 U/L High 0-31 [facility] Comment on above: Performed By: #### C BCA, CMP, 05855-7, 33455-3, TSHR, 03355-7, 2777-1, 2639-3, 2157-6, 3024-7 #### [facility] ([id number]) [address] [place] [address] GFR/1.73 sq M.predicted among non-blacks MDRD (S/P/Bld) [Vol rate/Area] 29 mL/min/{1.73_m2} Low >59 [facility] Comment on above: Result Comment: Reported eGFR is based on the CKD-EPI 2020 equation that does not use a race coefficient. Performed By: #### C BCA, CMP, 75956-7, 93381-4, TSHR, 00940-0, 2777-1, 2639-3, 2157-6, 3024-7 #### [facility] ([id number]) [address], [address] [place] [address] Albumin [Mass/Vol] 3.7 g/dL Normal 3.2-5.3 [facility] Comment on above: Performed By: #### C BCA, CMP, 49139-8, 98043-7, TSHR, 94453-0, 2777-1, 2639-3, 2157-6, 3024-7 #### [facility] ([id number]) [address], [address] [place] [address] ALP [Catalytic activity/Vol] 63 U/L Normal 39-130 [facility] Comment on above: Performed By: #### C BCA, CMP, 58946-0, 45129-6, TSHR, 05681-2, 2777-1, 2639-3, 2157-6, 3024-7 #### [facility] ([id number]) [address], [address] [place] [address] Anion gap [Moles/Vol] 12 mmol/L Normal 5-15 [facility] Comment on above: Performed By: #### C BCA, CMP, 87684-9, 91038-1, TSHR, 29936-2, 2777-1, 2639-3, 2157-6, 3024-7 #### [facility] ([id number]) [address], [address] [place] [address] AST [Catalytic activity/Vol] 1597 U/L High 0-41 [facility] Comment on above: Performed By: #### C BCA, CMP, 14695-7, 52649-9, TSHR, 18985-4, 2777-1, 2639-3, 2157-6, 3024-7 #### [facility] ([id number]) [address], [address] [place] [address] Bilirubin [Mass/Vol] 0.4 mg/dL Normal 0.3-1.2 [facility] Comment on above: Performed By: #### C BCA, CMP, 71503-6, 89070-1, TSHR, 98404-3, 2777-1, 2639-3, 2157-6, 3024-7 #### [facility] ([id number]) [address], [address] [place] [address] Calcium [Mass/Vol] 7.7 mg/dL Low 8.5-10.5 [facility] Comment on above: Performed By: #### C BCA, CMP, 03395-4, 11716-2, TSHR, 40835-4, 2777-1, 2639-3, 2157-6, 3024-7 #### [facility] ([id number]) [address] [place] [address] Chloride [Moles/Vol] 106 mmol/L Normal 98-109 [facility] Comment on above: Performed By: #### C BCA, CMP, 18303-7, 78250-9, TSHR, 59350-7, 2777-1, 2639-3, 2157-6, 3024-7 #### [facility] ([id number]) [address] [place] [address] CO2 [Moles/Vol] 22 mmol/L Normal 22-32 [facility] Comment on above: Performed By: #### C BCA, CMP, 65778-4, 79165-6, TSHR, 64927-2, 2777-1, 2639-3, 2157-6, 3024-7 #### [facility] ([id number]) [address] [place] [address] Creatinine [Mass/Vol] 2.33 mg/dL High 0.40-1.00 [facility] Comment on above: Result Comment: METH OD TRACEABLE TO IDMS STANDARD Performed By: #### C BCA, CMP, 82717-0, 89525-0, TSHR, 13053-3, 2777-1, 2639-3, 2157-6, 3024-7 #### [facility] ([id number]) [address] [place] [address] Glucose [Mass/Vol] 155 mg/dL High 65-99 [facility] Comment on above: Performed By: #### C BCA, CMP, 63762-8, 82836-2, TSHR, 24432-3, 2777-1, 2639-3, 2157-6, 3024-7 #### [facility] ([id number]) [address], [address] [place] [address] Potassium [Moles/Vol] 4.1 mmol/L Normal 3.5-5.0 [facility] Comment on above: Performed By: #### C BCA, CMP, 73874-4, 83110-6, TSHR, 33077-2, 2777-1, 2639-3, 2157-6, 3024-7 #### [facility] ([id number]) [address], [address] [place] [address] Protein [Mass/Vol] 6.3 g/dL Normal 6.0-8.0 [facility] Comment on above: Performed By: #### C BCA, CMP, 46678-4, 41138-2, TSHR, 77462-7, 2777-1, 2639-3, 2157-6, 3024-7 #### [facility] ([id number]) [address], [address] [place] [address] Sodium [Moles/Vol] 140 mmol/L Normal 134-146 [facility] Comment on above: Performed By: #### C BCA, CMP, 63887-2, 18173-8, TSHR, 81796-0, 2777-1, 2639-3, 2157-6, 3024-7 #### [facility] ([id number]) [address], [address] [place] [address] Urea nitrogen [Mass/Vol] 36 mg/dL High 5-23 [facility] Comment on above: Performed By: #### C BCA, CMP, 02900-3, 21045-8, TSHR, 90459-8, 2777-1, 2639-3, 2157-6, 3024-7 #### [facility] ([id number]) [address], [address] [place] [address] CRP [Mass/Vol]on 11-06-2024 Interpretation and review of laboratory results Abnormal [facility] C REACTIVE PROTEIN 5.1 mg/dL High 0.000-0.744 [facility] Comment on above: Performed By: #### C BCA, CMP, 14148-7, 69699-1, TSHR, 73971-8, 2777-1, 2639-3, 2157-6, 3024-7 #### [facility] ([id number]) [address], [address] [place] [address] Calcium.ionized (Bld) [Mass/ Vol]on 11-06-2024 [facility] IONIZED CALCIUM 4.8 mg/dL Normal 4.5-5.3 [facility] Comment on above: Performed By: #### C BCA, CMP, 44541-3, 23016-6, TSHR, 51550-3, 2777-1, 2639-3, 2157-6, 3024-7 #### [facility] ([id number]) [address], [address] [place] [address] Interpretation and review of laboratory results Abnormal [facility] IONIZED CALCIUM 4.3 mg/dL Low 4.5-5.3 [facility] Comment on above: Performed By: #### C BCA, CMP, 85994-9, 88990-1, TSHR, 01292-8, 2777-1, 2639-3, 2157-6, 3024-7 #### [facility] ([id number]) [address], [address] [place] [address] Complement C3 [Mass/Vol]on 0 11-06-2024 COMPLEMENT C3 104 mg/dL Normal 86-184 [facility] Comment on above: Performed By: #### C BCA, CMP, 32919-4, 72732-3, TSHR, 99793-4, 2777-1, 2639-3, 2157-6, 3024-7 #### [facility] ([id number]) [address], [address] [place] [address] Complement C4 [Mass/Vol]on 0 11-06-2024 COMPLEMENT C4 35 mg/dL Normal 16-47 [facility] Comment on above: Performed By: #### C BCA, CMP, 30936-6, 09241-7, TSHR, 29846-1, 2777-1, 2639-3, 2157-6, 3024-7 #### [facility] ([id number]) [address] [facility], [address] [place] [address] Comprehensive metabolic pane elvin 11-06-2024 ALT No additional P-5'-P [Catalytic activity/Vol] 1426 U/L High 0 - 31 U/L [facility] eGFR (CKD-EPI)non-race dependent 29 Low - PINF [facility] Interpretation and review of laboratory results Abnormal [facility] Creatinine (U) [Mass/Vol]on 11-06-2024 [facility] URINE CREATININE,RDM 36.52 mg/dL Normal Pro [facility] Comment on above: Performed By: #### C BCA, CMP, 85136-5, 79288-1, TSHR, 32337-4, 2777-1, 2639-3, 2157-6, 3024-7 #### [facility] ([id number]) [address] [facility], [address] [place] [address] DISCONTINUE IN PROCESS EEG T ESTINGOrdered By: Documentation Systemgenerated on 11-06-2024 [facility] Work Phone: CARO PANELon 11-06-2024 ANTI-FLORES AB IGG <0.2 Normal <1.[address] [facility] Comment on above: Performed By: #### C BCA, CMP, 16824-8, 27416-0, TSHR, 70334-9, 2777-1, 2639-3, 2157-6, 3024-7 #### [facility] ([id number]) [address] [facility], [address] [place] [address] JO1 ANTIBODY <0.2 Normal <1.0 [facility] Comment on above: Performed By: #### C BCA, CMP, 99174-5, 56652-4, TSHR, 43301-8, 2777-1, 2639-3, 2157-6, 3024-7 #### [facility] ([id number]) [address], [address] [place] [address] ENERGY OPERATIONS VICE PRESIDENT ANTIBODY IGG <0.2 Normal <1.[address] [facility] Comment on above: Performed By: #### C BCA, CMP, 65738-8, 11621-5, TSHR, 50425-8, 2777-1, 2639-3, 2157-6, 3024-7 #### [facility] ([id number]) [address], [address] [place] [address] SCL 70 ANTIBODY <0.2 Normal <1.0 [facility] Comment on above: Performed By: #### C BCA, CMP, 92980-2, 17771-5, TSHR, 71902-5, 2777-1, 2639-3, 2157-6, 3024-7 #### [facility] ([id number]) [address], [address] [place] [address] SSA ANTIBODY <0.2 Normal <1.0 [facility] Comment on above: Performed By: #### C BCA, CMP, 67235-1, 54858-5, TSHR, 66041-7, 2777-1, 2639-3, 2157-6, 3024-7 #### [facility] ([id number]) [address], [address] [place] [address] SSB ANTIBODY <0.2 Normal <1.0 [facility] Comment on above: Performed By: #### C BCA, CMP, 03986-2, 16453-6, TSHR, 84040-2, 2777-1, 2639-3, 2157-6, 3024-7 #### [facility] ([id number]) [address], [address] [place] [address] Enterovirus PCRon 11-06-2024 Enterovirus PCR, P Negative Normal Negative [facility] Comment on above: Result Comment: NOTE ADDITIONAL INFORMATION This test was developed and its performance characteristics determined by [facility] in a manner consistent with CLIA requirements. This test has not been cleared or approved by the U.S. Food and Drug Administration. Test Performed by: [facility] [place] [address] [employer] Press Feeder: Ulysses Juarez Ph.D.; CLIA# [id number] GI PANELon 11-06-2024 Gastrointestinal pathogens DNA and RNA panel JACKSON+non-probe (Stl) SPECIMEN SOURCE STOOL CAMPYLOBACTER Not detected (qualifier value) PLESIOMONAS Not detected (qualifier value) SALMONELLA Not detected (qualifier value) VIBRIO Not detected (qualifier value) VIBRIO CHOLERAE Not detected (qualifier value) Y. ENTEROCOLITICA Not detected (qualifier value) AGGREGATIVE E COLI Not detected (qualifier value) PATHOGENIC E COLI Not detected (qualifier value) TOXIGENIC E COLI Not detected (qualifier value) SHIGA TOXIN E COLI Not detected (qualifier value) SHIGELLA-E COLI Not detected (qualifier value) CRYPTOSPORIDIUM Not detected (qualifier value) CYCLOSPORA Not detected (qualifier value) E HISTOLYTICA Not detected (qualifier value) GIARDIA LAMBLIA Not detected (qualifier value) ADENOVIRUS Not detected (qualifier value) ASTROVIRUS Not detected (qualifier value) NOROVIRUS Not detected (qualifier value) ROTAVIRUS A Not detected (qualifier value) SAPOVIRUS Not detected (qualifier value) Normal NDET [facility] Comment on above: Performed By: #### C BCA, CMP, 49128-0, 74266-3, TSHR, 11319-6, 2777-1, 2639-3, 2157-6, 3024-7 #### [facility] ([id number]) [address] [place] [address], [address] [place] [address] Gastrointestinal pathogens D NA and RNA panel JACKSON+non-probe (Stl)on 11-06-2024 Adenovirus 40+41 DNA JACKSON+non-probe Ql (Stl) Not detected Not Detected^Not Detected [facility] Astrovirus subtypes 1-8 RNA JACKSON+non-probe Ql (Stl) Not detected Not Detected^Not Detected [facility] C. cayetanensis DNA JACKSON+non-probe Ql (Stl) Not detected Not Detected^Not Detected [facility] C. coli+jejuni+upsaliens is DNA JACKSON+non-probe Ql (Stl) Not detected Not Detected^Not Detected [facility] Cryptosporidium sp DNA JACKSON+non-probe Ql (Stl) Not detected Not Detected^Not Detected [facility] E. coli enteroaggregative Sweetie plasmid aggR+aatA genes JACKSON+non-probe Ql (Stl) Not detected Not Detected^Not Detected [facility] E. coli enteropathogenic eae gene JACKSON+non-probe Ql (Stl) Not detected Not Detected^Not Detected [facility] E. coli enterotoxigenic ltA+st1a+st1b genes JACKSON+non-probe Ql (Stl) Not detected Not Detected^Not Detected [facility] E. coli stx1+stx2 genes JACKSON+non-probe Ql (Stl) Not detected Not Detected^Not Detected [facility] E. histolytica DNA JACKSON+non-probe Ql (Stl) Not detected Not Detected^Not Detected [facility] G. lamblia DNA JACKSON+non-probe Ql (Stl) Not detected Not Detected^Not Detected [facility] Norovirus genogroup I+II RNA JACKSON+non-probe Ql (Stl) Not detected Not Detected^Not Detected [facility] P. shigelloides DNA JACKSON+non-probe Ql (Stl) Not detected Not Detected^Not Detected [facility] Rotavirus A RNA JACKSON+non-probe Ql (Stl) Not detected Not Detected^Not Detected [facility] S. enterica+bongori DNA JACKSON+non-probe Ql (Stl) Not detected Not Detected^Not Detected [facility] Sapovirus genogroups I+II+IV+V RNA JACKSON+non-probe Ql (Stl) Not detected Not Detected^Not Detected [facility] Shigella species+EIEC invasion plasmid antigen H ipaH gene JACKSON+non-probe Ql (Stl) Not detected Not Detected^Not Detected [facility] Specimen source Nom (Body fld) STOOL [facility] V. cholerae DNA JACKSON+non-probe Ql (Stl) Not detected Not Detected^Not Detected [facility] V. cholerae+parahaemolyt icus+vulnificus DNA JACKSON+non-probe Ql (Stl) Not detected Not Detected^Not Detected [facility] Y. enterocolitica DNA JACKSON+non-probe Ql (Stl) Not detected Not Detected^Not Detected [facility] Glomerular basement membrane IgG Qn (S)on 11-06-2024 GBM IgG Ab <0.2 Normal <1.0 [facility] Comment on above: Performed By: #### C BCA, CMP, 85171-8, 07075-7, TSHR, 55600-4, 2777-1, 2639-3, 2157-6, 3024-7 #### [facility] ([id number]) [address] [place] [address], [address] [place] [address] Glucose Glucometer (BldC) [M ass/Vol]on 11-06-2024 Glucose [Mass/Vol] 142 mg/dL High 65 - 99 mg/dL [facility] Interpretation and review of laboratory results Abnormal [facility] Glucose [Mass/Vol] 142 mg/dL High 65-[address] [facility] Glucose [Mass/Vol] 120 mg/dL High 65 - 99 mg/dL [facility] Glucose [Mass/Vol] 142 mg/dL High 65 - 99 mg/dL [facility] Interpretation and review of laboratory results Abnormal [facility] Glucose [Mass/Vol] 142 mg/dL High 65-[address] [facility] Glucose [Mass/Vol] 120 mg/dL High 65-[address] [facility] Glucose [Mass/Vol] 150 mg/dL High 65 - 99 mg/dL [facility] Interpretation and review of laboratory results Abnormal [facility] Glucose [Mass/Vol] 150 mg/dL High 65-[address] [facility] HIV 1&2 AB/AG Screen (P24 AG )on 11-06-2024 HIV 1+2 Ab+HIV1 p24 Ag IA Ql Non-Reactive Non-Reactive^ Non-Reactive [facility] HIV 1+2 Ab+HIV1 p24 Ag IA Ql on 11-06-2024 [facility] HIV 1 and 2 Ab/Ag Screen Non-Reactive Normal NRCT [facility] Comment on above: Result Comment: NEW TEST METHOD NOTE This information has been disclosed to you from confidential records protected from disclosure by state law. You shall make no further disclosure of this information without the specific, written and informed release of the individual to whom it pertains, or as otherwise permitted by state law. A general authorization for the release of medical or other information is not sufficient for the purpose of the release of HIV test results or diagnoses. Performed By: #### C QUIQUE, SYED, 46631-1, 63977-6, TSHR, 65623-5, 2776-1, 9-3, 2156-, 3024-04 #### [facility] ([id number]) [address] [facility] [place] [address] Ionized calciumon 11-06-2024 Calcium.ionized (Bld) [Mass/Vol] 4.8 mg/dL 4.5 - 5.3 mg/dL [facility] Calcium.ionized (Bld) [Mass/Vol] 4.3 mg/dL Low 4.5 - 5.3 mg/dL [facility] LDHon 11-06-2024 LDH [Catalytic activity/Vol] 2584 U/L High 100 - 235 U/L [facility] LDH [Catalytic activity/Vol] on 11-06-2024 Interpretation and review of laboratory results Abnormal [facility] LDH 2584 U/L High 100-235 [facility] Comment on above: Performed By: #### C QUIQUE, CMP, 06566-9, 30953-7, TSHR, 44546-4, 7-1, 9-3, 2156-, 3024-04 #### [facility] ([id number]) [address] [facility], [address] [place] [address] Laboratory - Chemistry and C hemistry - challengeon 11-06-2024 Sodium (U) [Moles/Vol] 44 mmol/L Normal [facility] Comment on above: Performed By: #### C BCA, CMP, 91193-2, 68972-4, TSHR, 13094-0, 2777-1, 2639-3, 2157-6, 3024-7 #### [facility] ([id number]) [address], [address] [place] [address] Magnesium [Mass/Vol] 2.1 mg/dL Normal 1.8-2.6 [facility] Comment on above: Performed By: #### C BCA, CMP, 70938-4, 32482-6, TSHR, 29419-4, 2777-1, 2639-3, 2157-6, 3024-7 #### [facility] ([id number]) [address] [facility], [address] [place] [address] Phosphate [Mass/Vol] 4.6 mg/dL Normal 2.4-4.9 [facility] Comment on above: Performed By: #### C BCA, CMP, 82613-2, 80775-3, TSHR, 88921-9, 2777-1, 2639-3, 2157-6, 3024-7 #### [facility] ([id number]) [address] [facility], [address] [place] [address] Laboratory - Microbiology an d Antimicrobial susceptibilityon 11-06-2024 C. difficile toxin genes JACKSON+probe Ql (Stl) Negative Presumptive Negative^Pres umptive Negative [facility] Myoglobin [Mass/Vol]on 11-06 Interpretation and review of laboratory results Abnormal [facility] Myoglobin, serumon Myoglobin [Mass/Vol] 2074.5 ng/mL High 14.3 - 65.8 ng/mL [facility] No Panel Informationon 11-06 [facility] Nuclear Ab IA Ql (S)on 11-06 RAUL Screen w/reflex Negative Normal NEG [facility] Comment on above: Result Comment: Testing performed using multiplex flow immunoassay. Eleven different antigens associated with systemic autoimmune diseases (dsDNA,Sm,Sm/ENERGY OPERATIONS VICE PRESIDENT,ENERGY OPERATIONS VICE PRESIDENT,Chromatin, SSA,SSB,Oma-1,Scl70,Ribo P,Centromere B) are included in this screening test. Performed By: #### C BCA, CMP, 77046-8, 57734-6, TSHR, 36473-1, 2777-1, 2639-3, 2157-6, 3024-7 #### [facility] ([id number]) [address] [facility], [address] [place] [address] POTASSIUMon 11-06-2024 Potassium [Moles/Vol] 4.2 mmol/L Normal 3.5-5.0 [facility] Comment on above: Performed By: #### C QUIQUE, CMP, 96432-4, 57943-2, TSHR, 80576-0, 2777-1, 2639-3, 2157-6, 3024-7 #### [facility] ([id number]) [address] [facility], [address] [place] [address] PROTEIN CREAT RATIOon 2024 R[facility]OM URINE PROTEIN 890 mg/L High <120 [facility] Comment on above: Performed By: #### C QUIQUE, CMP, 62225-2, 56016-1, TSHR, 56735-7, 2777-1, 2639-3, 2157-6, 3024-7 #### [facility] ([id number]) [address] [facility], [address] [place] [address] U/PRO/[employer] DEVELOPER RATIO CALC 2.45 High <0.2 [facility] Comment on above: Result Comment: Neph rotic Syndrome is associated with ratios >3.5 Performed By: #### C BCA, CMP, 01962-2, 86433-1, TSHR, 03682-6, 2777-1, 2639-3, 2157-6, 3024-7 #### [facility] ([id number]) [address] [facility], [address] [place] [address] URINE CREATININE,RDM 36.36 mg/dL Normal [facility] Comment on above: Performed By: #### C BCA, CMP, 30999-5, 04324-0, TSHR, 99482-4, 2777-1, 2639-3, 2157-6, 3024-7 #### [facility] ([id number]) [address] [place] [address] Potassiumon 11-06-2024 Potassium [Moles/Vol] 4.2 mmol/L 3.5 - 5.0 mmol/L [facility] Potassium [Moles/Vol]on [facility] SERUM PROTEIN ELECTROPHORESI Son 11-06-2024 ALBUMIN REQUEST CREDITED Normal 3.4-5.[address] [facility] Comment on above: Result Comment: JENA TITY NOT SUFFICIENT Performed By: #### C BCA, CMP, 56527-3, 84450-5, TSHR, 99950-1, 2777-1, 2639-3, 2157-6, 3024-7 #### [facility] ([id number]) [address], [address] [place] [address] ALPHA 1 GLOBULIN REQUEST CREDITED Normal 0.1-0.4 Pr [facility] Comment on above: Result Comment: JENA TITY NOT SUFFICIENT Performed By: #### C BCA, CMP, 61703-6, 17330-9, TSHR, 77731-1, 2777-1, 2639-3, 2157-6, 3024-7 #### [facility] ([id number]) [address], [address] [place] [address] ALPHA 2 GLOBULIN REQUEST CREDITED Normal 0.4-1.1 Pr [facility] Comment on above: Result Comment: JENA TITY NOT SUFFICIENT Performed By: #### C BCA, CMP, 47235-5, 80514-3, TSHR, 47459-1, 2777-1, 2639-3, 2157-6, 3024-7 #### [facility] ([id number]) [address], [address] [place] [address] BETA GLOBULIN REQUEST CREDITED Normal 0.5-1.2 [facility] Comment on above: Result Comment: JENA TITY NOT SUFFICIENT Performed By: #### C BCA, CMP, 33008-4, 92627-4, TSHR, 55517-2, 2777-1, 2639-3, 2157-6, 3024-7 #### [facility] ([id number]) [address] [facility], [address] [place] [address] GAMMA GLOBULIN REQUEST CREDITED Normal 0.5-1.6 [facility] Comment on above: Result Comment: JENA TITY NOT SUFFICIENT Performed By: #### C BCA, CMP, 92515-9, 02002-6, TSHR, 73176-3, 2777-1, 2639-3, 2157-6, 3024-7 #### [facility] ([id number]) [address] [facility], [address] [place] [address] PROT. ELECTROPHORESIS INTERP REQUEST CREDITED Normal [facility] Comment on above: Result Comment: JENA TITY NOT SUFFICIENT Performed By: #### C BCA, CMP, 58895-8, 59388-0, TSHR, 44156-9, 2777-1, 2639-3, 2157-6, 3024-7 #### [facility] ([id number]) [address], [address] [place] [address] Protein [Mass/Vol] 6.3 g/dL Normal 6.0-8.[address] [facility] Comment on above: Result Comment: REQU EST CREDITED QUANTITY NOT SUFFICIENT Performed By: #### C BCA, CMP, 15626-3, 25450-9, TSHR, 41887-1, 2777-1, 2639-3, 2157-6, 3024-7 #### [facility] ([id number]) [address], [address] [place] [address] Sodium (U) [Moles/Vol]on [facility] URINALYSISon 11-06-2024 Bilirubin Ql (U) Negative Normal NEG [facility] Comment on above: Performed By: #### C BCA, CMP, 03536-8, 47625-6, TSHR, 08499-2, 2777-1, 2639-3, 2157-6, 3024-7 #### [facility] ([id number]) [address], [address] [place] [address] Color (U) YELLOW Normal YELLOW [facility] Comment on above: Performed By: #### C BCA, CMP, 44838-7, 44294-4, TSHR, 78603-8, 2777-1, 2639-3, 2157-6, 3024-7 #### [facility] ([id number]) [address], [address] [place] [address] pH (U) 6.5 [pH] Normal 5.0-8.5 [facility] Comment on above: Performed By: #### C BCA, CMP, 22505-2, 29715-0, TSHR, 79421-3, 2777-1, 2639-3, 2157-6, 3024-7 #### [facility] ([id number]) [address], [address] [place] [address] BLOOD/HGB Large Abnormal NEG [facility] Comment on above: Performed By: #### C BCA, CMP, 01764-7, 99619-3, TSHR, 30805-8, 2777-1, 2639-3, 2157-6, 3024-7 #### [facility] ([id number]) [address], [address] [place] [address] Glucose Ql (U) Negative Normal NEG [facility] Comment on above: Performed By: #### C BCA, CMP, 18741-2, 41645-2, TSHR, 62582-7, 2777-1, 2639-3, 2157-6, 3024-7 #### [facility] ([id number]) [address], [address] [place] [address] Ketones Ql (U) Negative Normal NEG [facility] Comment on above: Performed By: #### C BCA, CMP, 77822-9, 02530-4, TSHR, 59741-5, 2777-1, 2639-3, 2157-6, 3024-7 #### [facility] ([id number]) [address], [address] [place] [address] Leukocyte esterase Test strip Ql (U) Negative Normal NEG [facility] Comment on above: Performed By: #### C BCA, CMP, 83640-1, 67723-0, TSHR, 94009-5, 2777-1, 2639-3, 2157-6, 3024-7 #### [facility] ([id number]) [address], [address] [place] [address] Nitrite Ql (U) Negative Normal NEG [facility] Comment on above: Performed By: #### C BCA, CMP, 98942-2, 89309-9, TSHR, 47651-3, 2777-1, 2639-3, 2157-6, 3024-7 #### [facility] ([id number]) [address], [address] [place] [address] Protein Ql (U) 70 mg/dL Abnormal NEG [facility] Comment on above: Performed By: #### C BCA, CMP, 27922-6, 44510-4, TSHR, 42003-5, 2777-1, 2639-3, 2157-6, 3024-7 #### [facility] ([id number]) [address], [address] [place] [address] R.B.CELLS <1 Normal 0-5 [facility] Comment on above: Performed By: #### C BCA, CMP, 26469-4, 66166-5, TSHR, 51366-3, 2777-1, 2639-3, 2157-6, 3024-7 #### [facility] ([id number]) [address], [address] [place] [address] Specific gravity (U) [Rel density] 1.009 Normal 1.003-1.035 [facility] Comment on above: Performed By: #### C BCA, CMP, 09170-1, 02397-9, TSHR, 21401-8, 2777-1, 2639-3, 2157-6, 3024-7 #### [facility] ([id number]) [address], [address] [address] SQUAMOUS EPITHELIUM <1 Normal 0-5 [facility] Comment on above: Performed By: #### C BCA, CMP, 77937-3, 39691-4, TSHR, 05422-1, 2777-1, 2639-3, 2157-6, 3024-7 #### [facility] ([id number]) [address], [address] [address] TURBIDITY CLEAR Normal CLEAR [facility] Comment on above: Performed By: #### C BCA, CMP, 13989-7, 67228-8, TSHR, 72958-2, 2777-1, 2639-3, 2157-6, 3024-7 #### [facility] ([id number]) [address], [address] [address] Urinalysis dipstick W Reflex Microscopic panel (U) URINE RECEIVED WITHOUT PRESERVATIVE-DELAYS IN TRANSPORT MAY AFFECT RESULTS.INTERPRET WITH CAUTION AND CLINICAL CORRELATION IS RECOMMENDED. Normal [facility] Comment on above: Performed By: #### C BCA, CMP, 08280-4, 66622-4, TSHR, 50995-1, 2777-1, 2639-3, 2157-6, 3024-7 #### [facility] ([id number]) [address], [address] [place] [address] Urobilinogen (U) [Mass/Vol] mg/dL Normal <1.1 [facility] Comment on above: Performed By: #### C BCA, CMP, 10349-7, 66694-6, TSHR, 36302-6, 2777-1, 2639-3, 2157-6, 3024-7 #### [facility] ([id number]) [address], [address] [place] [address] W.B.CELLS 1 /hpf Normal 0-5 [facility] Comment on above: Performed By: #### C BCA, [facility], 52184-9, 86989-2, TSHR, 71842-7, 2777-1, 2639-3, 2157-6, 3024-7 #### [facility] ([id number]) [address], [address] [place] [address] Urinalysison 11-06-2024 Epithelial cells Auto (Urine sed) [#/Area] [facility] Glucose (U) [Mass/Vol] Negative Negative^Nega tive mg/dL [facility] Hemoglobin Auto test strip Ql (U) Large Abnormal Negative^Nega tive [facility] Interpretation and review of laboratory results Abnormal [facility] Ketones (U) [Mass/Vol] Negative Negative^Nega tive mg/dL [facility] Leukocyte esterase Auto test strip Ql (U) Negative Negative^Nega tive [facility] Nitrite Auto test strip Ql (U) Negative Negative^Nega tive [facility] Protein (U) [Mass/Vol] 70 mg/dL Abnormal Negative^Nega tive [facility] RBC Auto (Urine sed) [#/Area] [facility] Specific gravity Refractometry automated (U) [Rel density] 1.009 1.003 - 1.035 [facility] Turbidity Ql (U) CLEAR CLEAR^CLEAR [facility] Urinalysis microscopic panel Auto (Urine sed) [#/Area] URINE RECEIVED WITHOUT PRESERVATIVE-DELAYS IN TRANSPORT MAY AFFECT RESULTS.INTERPRET WITH CAUTION AND CLINICAL CORRELATION IS RECOMMENDED. [facility] Urobilinogen Qn (U) [facility] WBC Auto (Urine sed) [#/Area] 1 [facility] Urine Creatinine,Rdmon 11-06 Creatinine (U) [Mass/Vol] 36.52 mg/dL [facility] Urine protein creatinine rat ioon 11-06-2024 Creatinine (U) [Mass/Vol] 36.36 mg/dL [facility] Interpretation and review of laboratory results Abnormal [facility] Protein (U) [Mass/Vol] 890 mg/L High [facility] - 120 mg/L [facility] Protein/Creatinine (U) [Ratio] 2.45 High [facility] - 0.2 [facility] ACUTE HEPATITIS PANELon ANTI HCV W/PCR REFLX Non-Reactive Normal NRCT Pr [facility] Comment on above: Result Comment: NEW TEST METHOD NOTE If recent infection suspected, recommend repeat testing (>2 months). Fxftmr-ti-suzwnu ratio is <1.00. Performed By: #### C BCA, CMP #### [facility] ([id number]) [address], [address] [address] HEPATITIS A IGM Non-Reactive Normal NRCT [facility] Comment on above: Result Comment: NEW TEST METHOD Performed By: #### C BCA, CMP #### [facility] ([id number]) [address], [address] [place] [address] HEPATITIS B CORE IGM Non-Reactive Normal NRCT Pr [facility] Comment on above: Result Comment: NEW TEST METHOD Performed By: #### C BCA, CMP #### [facility] ([id number]) [address], [address] [place] [address] HEPATITIS B SURF AG Non-Reactive Normal NRCT Pro [facility] Comment on above: Result Comment: NEW TEST METHOD Performed By: #### C BCA, CMP #### [facility] ([id number]) [address], [address] [place] [address] ARTERIAL BLOOD GASon 025 MARJORIE'S TEST Pass Normal [facility] Comment on above: Performed By: #### A BG ####[facility] ([id number])[address] [place] [address] BASE,DEFICIT 9.0 MMOL/L High 0.0-2.0 [facility] Comment on above: Performed By: #### A BG ####[facility] ([id number])[address] [place] [address] Body temperature 98.6 [degF] Normal 37.[address] [facility] Comment on above: Performed By: #### A BG ####[facility] ([id number])[address] [place] [address] HCO3 (Bld) [Moles/Vol] 17.0 mmol/L Low 22-26 [facility] Comment on above: Performed By: #### A BG ####[facility] ([id number])[address] [place] [address] INSP. O2 CONC. 21 % [facility] Comment on above: Performed By: #### A BG ####[facility] ([id number])[address] [place] [address] Oxygen (Bld) [Partial pressure] 38 mm[Hg] Critically low 80-100 [facility] Comment on above: Performed By: #### A BG ####[facility] ([id number])[address] [place] [address] Oxygen saturation in Blood 65.0 % Low >90 [facility] Comment on above: Performed By: #### A BG ####[facility] ([id number])[address] [place] [address] OXYGEN SOURCE [employer] [facility] Comment on above: Performed By: #### A BG ####[facility] ([id number])[address] [place] [address] PCO2 36.3 MMHG Normal 35-45 [facility] Comment on above: Performed By: #### A BG ####[facility] ([id number])[address] [place] [address] pH (Bld) 7.279 [pH] Low 7.350-7.450 [facility] Comment on above: Performed By: #### A BG ####[facility] ([id number])[address] [place] [address] SAMPLE SITE RRad Normal [facility] Comment on above: Performed By: #### A BG ####[facility] ([id number])[address] [place] [address] SAMPLE TYPE ARTERIAL Normal [facility] Comment on above: Performed By: #### A BG ####[facility] ([id number])[address] [place] [address] BASIC METABOLIC PANLon 11-05 Anion gap [Moles/Vol] 10 mmol/L Normal 5-15 [facility] Comment on above: Performed By: #### B MP ####[facility] ([id number])[address], [address] [place] [address] Calcium [Mass/Vol] 7.7 mg/dL Low 8.5-10.[address] [facility] Comment on above: Performed By: #### B MP ####[facility] ([id number])[address], [address], [place] [address] Chloride [Moles/Vol] 105 mmol/L Normal 98-109 [facility] Comment on above: Performed By: #### B MP ####[facility] ([id number])[address], [address] [address] CO2 [Moles/Vol] 24 mmol/L Normal 22-32 [facility] Comment on above: Performed By: #### B MP ####[facility] ([id number])[address], [address], [place] [address] Creatinine [Mass/Vol] 2.43 mg/dL High 0.40-1.00 [facility] Comment on above: Result Comment: METH OD TRACEABLE TO IDMS STANDARD Performed By: #### B MP ####[facility] ([id number])[address] [address] [address] GFR/1.73 sq M.predicted among non-blacks MDRD (S/P/Bld) [Vol rate/Area] 28 mL/min/{1.73_m2} Low >59 [facility] Comment on above: Result Comment: Reported eGFR is based on the CKD-EPI 2020 equation that does not use a race coefficient. Performed By: #### B MP ####[facility] ([id number])[address] [address] [address] Glucose [Mass/Vol] 105 mg/dL High 65-[address] [facility] Comment on above: Performed By: #### B MP ####[facility] ([id number])[address] [address], [place] [address] Potassium [Moles/Vol] 4.1 mmol/L Normal 3.5-5.0 [facility] Comment on above: Performed By: #### B MP ####[facility] ([id number])[address] [address] [address] Sodium [Moles/Vol] 139 mmol/L Normal 134-[address] [facility] Comment on above: Performed By: #### B MP ####[facility] ([id number])[address] [address], [place] [address] Urea nitrogen [Mass/Vol] 37 mg/dL High 5-23 [facility] Comment on above: Performed By: #### B ####[facility] ([id number])[address] [facility], [address] [place] [address] Baseline Routine EEGon 11-05 MANUALLY TRANSCRIBED RESULTS Baseline Routine EEGOrdered By: Ray Mina on 11-05-2024 [facility] Work Phone: Basic Metabolic Panelon Anion gap [Moles/Vol] 10 mmol/L 5 - 15 mmol/L [facility] Calcium [Mass/Vol] 7.7 mg/dL Low 8.5 - 10. 5 mg/dL [facility] Chloride [Moles/Vol] 105 mmol/L 98 - 10 9 mmol/L [facility] CO2 [Moles/Vol] 24 mmol/L 22 - 32 mmol/L [facility] Creatinine [Mass/Vol] 2.43 mg/dL High 0.40 - 1.00 mg/dL [facility] eGFR (CKD-EPI)non-race dependent 28 Low - PINF [facility] Glucose [Mass/Vol] 105 mg/dL High 65 - 99 mg/dL [facility] Interpretation and review of laboratory results Abnormal [facility] Potassium [Moles/Vol] 4.1 mmol/L 3.5 - 5.0 mmol/L [facility] Sodium [Moles/Vol] 139 mmol/L 134 - 146 mmol/L [facility] Urea nitrogen [Mass/Vol] 37 mg/dL High 5 - 23 mg/dL [facility] Blood Gas, Arterialon 2024 Arterial patency Wrist artery --pre arterial puncture Pass [facility] Base deficit (Bld) [Moles/Vol] 9 mmol/L High [facility] CO2 (Bld) [Partial pressure] 36.3 mm[Hg] [facility] HCO3 (Bld) [Moles/Vol] 17 mmol/L Low [facility] Interpretation and review of laboratory results Abnormal [facility] Oxygen (Bld) [Partial pressure] 38 mm[Hg] Critically low [facility] Oxygen therapy source and amount [CARE] [employer] [facility] Oxygen/Inspired gas setting [Volume Fraction] Ventilator 21 % [facility] pH (Bld) 7.279 [pH] Low 7.350 - 7.450 [facility] Specimen site Narrative RRad [facility] Specimen type Nom (Spec) ARTERIAL [facility] CBC AND AUTO DIFFon 11-05-19 25 Band form neutrophils/100 WBC (Bld) 3.8 % Normal [facility] Comment on above: Performed By: #### C BCA, CMP, 58132-2, 11203-7, TSHR, 54574-2, 2777-1, 2639-3, 2157-6, 3024-7 #### [facility] ([id number]) [address] [facility], [address] [address] Erythrocyte distribution width (RBC) [Ratio] 13.7 % Normal 11.5-15.0 [facility] Comment on above: Performed By: #### C BCA, CMP, 78782-2, 17697-7, TSHR, 35418-0, 2777-1, 2639-3, 2157-6, 3024-7 #### [facility] ([id number]) [address] [facility], [address] [place] [address] Hematocrit (Bld) [Volume fraction] 40.0 % Normal 35-47 [facility] Comment on above: Performed By: #### C BCA, CMP, 02422-0, 02618-4, TSHR, 91449-2, 2777-1, 2639-3, 2157-6, 3024-7 #### [facility] ([id number]) [address] [facility], [address] [place] [address] Hemoglobin (Bld) [Mass/Vol] 13.4 g/dL Normal 11.7-15.5 [facility] Comment on above: Performed By: #### C BCA, CMP, 72255-9, 79051-0, TSHR, 28389-7, 2777-1, 2639-3, 2157-6, 3024-7 #### [facility] ([id number]) [address], [address] [place] [address] Lymphocytes (Bld) [#/Vol] 1.8 10*3/uL Normal 1.0-3.5 [facility] Comment on above: Performed By: #### C BCA, CMP, 44977-5, 18757-0, TSHR, 82135-8, 2777-1, 2639-3, 2157-6, 3024-7 #### [facility] ([id number]) [address], [address] [place] [address] Lymphocytes/100 WBC (Bld) 5.8 % Normal [facility] Comment on above: Performed By: #### C BCA, CMP, 32086-3, 53843-2, TSHR, 91451-8, 2777-1, 2639-3, 2157-6, 302-7 #### [facility] ([id number]) [address], [address] [place] [address] MCH (RBC) [Entitic mass] 29.8 pg Normal 27-34 [facility] Comment on above: Performed By: #### C BCA, CMP, 19784-5, 66089-8, TSHR, 43723-9, 2777-1, 2639-3, 2157-6, 3024-7 #### [facility] ([id number]) [address], [address] [place] [address] MCHC (RBC) [Mass/Vol] 33.4 g/dL Normal 32-36 [facility] Comment on above: Performed By: #### C BCA, CMP, 28727-3, 32480-1, TSHR, 69461-7, 2777-1, 2639-3, 2157-6, 3024-7 #### [facility] ([id number]) [address] [address] [place] [address] MCV (RBC) [Entitic vol] 89 fL Normal 80-100 [facility] Comment on above: Performed By: #### C BCA, CMP, 48837-6, 84069-1, TSHR, 64013-5, 2777-1, 2639-3, 2157-6, 3024-7 #### [facility] ([id number]) [address], [address] [place] [address] Monocytes (Bld) [#/Vol] 0.9 10*3/uL Normal 0-0.9 [facility] Comment on above: Performed By: #### C BCA, CMP, 63888-8, 28785-9, TSHR, 75018-2, 2777-1, 2639-3, 2157-6, 3024-7 #### [facility] ([id number]) [address], [address] [place] [address] Monocytes/100 WBC (Bld) 2.9 % Normal [facility] Comment on above: Performed By: #### C BCA, CMP, 37186-2, 86028-9, TSHR, 10032-9, 2777-1, 2639-3, 2157-6, 3024-7 #### [facility] ([id number]) [address], [address] [place] [address] Neutrophils (Bld) [#/Vol] 28.8 10*3/uL High 1.5-6.6 [facility] Comment on above: Performed By: #### C BCA, CMP, 56193-0, 89599-0, TSHR, 84910-5, 2777-1, 2639-3, 2157-6, 3024-7 #### [facility] ([id number]) [address], [address] [place] [address] Platelet mean volume (Bld) [Entitic vol] 7.5 fL Normal 7-12 [facility] Comment on above: Performed By: #### C BCA, CMP, 26717-9, 00631-1, TSHR, 30100-3, 2777-1, 2639-3, 2157-6, 3024-7 #### [facility] ([id number]) [address], [address] [place] [address] Platelets (Bld) [#/Vol] 297 10*3/uL Normal 150-450 [facility] Comment on above: Performed By: #### C BCA, CMP, 65904-9, 89655-4, TSHR, 77423-7, 2777-1, 2639-3, 2157-6, 3024-7 #### [facility] ([id number]) [address], [address] [place] [address] RBC COUNT 4.49 X10E12/L Normal 3.80-5.20 [facility] Comment on above: Performed By: #### C BCA, CMP, 43314-1, 40428-2, TSHR, 94326-4, 2777-1, 2639-3, 2157-6, 3024-7 #### [facility] ([id number]) [address], [address] [place] [address] RBC morphology finding Nom (Bld) NORMAL Normal [facility] Comment on above: Performed By: #### C BCA, CMP, 30204-2, 99867-1, TSHR, 58345-3, 2777-1, 2639-3, 2157-6, 3024-7 #### [facility] ([id number]) [address], [address] [place] [address] SEG NEUTROPHIL 87.5 % Normal [facility] Comment on above: Performed By: #### C BCA, CMP, 25661-9, 02794-9, TSHR, 60616-8, 2777-1, 2639-3, 2157-6, 3024-7 #### [facility] ([id number]) [address] [facility], [address] [place] [address] WBC (Bld) [#/Vol] 31.5 10*3/uL High 4.0-11.0 [facility] Comment on above: Performed By: #### C BCA, CMP, 10452-7, 28342-3, TSHR, 25963-7, 2777-1, 2639-3, 2157-6, 3024-7 #### [facility] ([id number]) [address] [facility], [address] [place] [address] CBC auto differentialon 0 Band form neutrophils/100 WBC (Bld) 3.8 % [facility] Erythrocyte distribution width (RBC) [Ratio] 13.7 % 11.5 - 15.0 % [facility] Hematocrit (Bld) [Volume fraction] 40 % 35 - 47 % [facility] Hemoglobin (Bld) [Mass/Vol] 13.4 g/dL 11.7 - 15.5 g/dL [facility] Interpretation and review of laboratory results Abnormal [facility] Lymphocytes (Bld) [#/Vol] 1.8 10*3/uL [facility] Lymphocytes/100 WBC (Bld) 5.8 % [facility] MCH (RBC) [Entitic mass] 29.8 pg 27 - 34 pg [facility] MCHC (RBC) [Mass/Vol] 33.4 g/dL 32 - 36 g/dL [facility] MCV (RBC) [Entitic vol] 89 fL 80 - 100 fL [facility] Monocytes (Bld) [#/Vol] 0.9 10*3/uL [facility] Monocytes/100 WBC (Bld) 2.9 % [facility] Neutrophils (Bld) [#/Vol] 28.8 10*3/uL High [facility] Platelet mean volume (Bld) [Entitic vol] 7.5 fL 7 - 12 fL [facility] Platelets (Bld) [#/Vol] 297 10*3/uL [facility] Polymorphonuclear cells/100 WBC (Bld) NORMAL [facility] RBC (Bld) [#/Vol] 4.49 10*6/uL [facility] Segmented neutrophils/100 WBC (Bld) 87.5 % [facility] WBC corrected for nucl RBC Auto (Bld) [#/Vol] 31.5 High [facility] CK Totalon 11-05-2024 CK [Catalytic activity/Vol] [address] U/L High 24 - 170 U/L [facility] CK [Catalytic activity/Vol] [address]23[address] U/L High 24 - 170 U/L [facility] CK [Catalytic activity/Vol]o n 11-05-2024 CPK 80325 U/L High 24-170 [facility] Comment on above: Performed By: #### 2 639-3, 2156-6 ####[facility] ([id number])[address], [address] [place] [address] CPK 73151 U/L High 24-170 [facility] Comment on above: Performed By: #### 2 157-6, 9-3 ####[facility] ([id number])[address], [address] [place] [address] Interpretation and review of laboratory results Abnormal [facility] CPK 76223 U/L High 24-170 [facility] Comment on above: Performed By: #### C BCA, CMP #### [facility] ([id number]) [address], [address] [place] [address] COMPREHENSIVE METABOLIC PANE Elvin 11-05-2024 Albumin [Mass/Vol] 4.5 g/dL Normal 3.2-5.[address] [facility] Comment on above: Performed By: #### C BCA, CMP, 00750-8, 95697-6, TSHR, 91093-3, 2777-1, 2639-3, 2157-6, 3024-7 #### [facility] ([id number]) [address], [address] [place] [address] ALP [Catalytic activity/Vol] 86 U/L Normal 39-130 [facility] Comment on above: Performed By: #### C BCA, CMP, 77221-4, 36707-1, TSHR, 24538-4, 2777-1, 2639-3, 2157-6, 3024-7 #### [facility] ([id number]) [address], [address] [place] [address] ALT [Catalytic activity/Vol] 216 U/L High 0-31 [facility] Comment on above: Performed By: #### C BCA, CMP, 15471-8, 19016-5, TSHR, 97682-8, 2777-1, 2639-3, 2157-6, 3024-7 #### [facility] ([id number]) [address], [address] [place] [address] Anion gap [Moles/Vol] 12 mmol/L Normal 5-15 [facility] Comment on above: Performed By: #### C BCA, CMP, 78958-8, 98793-4, TSHR, 29832-1, 2777-1, 2639-3, 2157-6, 3024-7 #### [facility] ([id number]) [address], [address] [place] [address] AST [Catalytic activity/Vol] 488 U/L High 0-41 [facility] Comment on above: Performed By: #### C BCA, CMP, 71467-3, 89995-0, TSHR, 64680-0, 2777-1, 2639-3, 2157-6, 3024-7 #### [facility] ([id number]) [address], [address] [place] [address] Bilirubin [Mass/Vol] 0.4 mg/dL Normal 0.3-1.2 [facility] Comment on above: Performed By: #### C BCA, CMP, 38418-8, 22732-7, TSHR, 77468-3, 2777-1, 2639-3, 2157-6, 3024-7 #### [facility] ([id number]) [address], [address] [place] [address] Calcium [Mass/Vol] 7.4 mg/dL Low 8.5-10.[address] [facility] Comment on above: Performed By: #### C BCA, CMP, 15210-6, 11330-4, TSHR, 36107-5, 2777-1, 2639-3, 2157-6, 3024-7 #### [facility] ([id number]) [address], [address] [place] [address] Chloride [Moles/Vol] 108 mmol/L Normal 98-109 [facility] Comment on above: Performed By: #### C BCA, CMP, 37387-5, 64139-5, TSHR, 01189-1, 2777-1, 2639-3, 2157-6, 4-7 #### [facility] ([id number]) [address], [address] [place] [address] CO2 [Moles/Vol] 16 mmol/L Low 22-32 [facility] Comment on above: Performed By: #### C BCA, CMP, 62565-8, 36855-8, TSHR, 01507-3, 2777-1, 2639-3, 2157-6, 3024-7 #### [facility] ([id number]) [address], [address] [place] [address] Creatinine [Mass/Vol] 2.26 mg/dL High 0.40-1.00 [facility] Comment on above: Result Comment: METH OD TRACEABLE TO IDMS STANDARD Performed By: #### C BCA, CMP, 40042-0, 33532-1, TSHR, 62548-6, 2777-1, 2639-3, 2157-6, 3024-7 #### [facility] ([id number]) [address], [address] [place] [address] GFR/1.73 sq M.predicted among non-blacks MDRD (S/P/Bld) [Vol rate/Area] 30 mL/min/{1.73_m2} Low >59 [facility] Comment on above: Result Comment: Reported eGFR is based on the CKD-EPI 2020 equation that does not use a race coefficient. Performed By: #### C BCA, CMP, 32886-3, 80732-8, TSHR, 98650-8, 2777-1, 2639-3, 2157-6, 3024-7 #### [facility] ([id number]) [address], [address] [place] [address] Glucose [Mass/Vol] 104 mg/dL High 65-[address] [facility] Comment on above: Performed By: #### C BCA, CMP, 64935-6, 32470-4, TSHR, 48921-4, 2777-1, 2639-3, 2157-6, 3024-7 #### [facility] ([id number]) [address], [address] [place] [address] Potassium [Moles/Vol] 4.0 mmol/L Normal 3.5-5.0 [facility] Comment on above: Performed By: #### C BCA, CMP, 57240-7, 63614-0, TSHR, 26963-9, 2777-1, 2639-3, 2157-6, 3024-7 #### [facility] ([id number]) [address], [address] [place] [address] Protein [Mass/Vol] 7.2 g/dL Normal 6.0-8.[address] [facility] Comment on above: Performed By: #### C BCA, CMP, 58754-7, 26410-6, TSHR, 68125-9, 2777-1, 2639-3, 2157-6, 3024-7 #### [facility] ([id number]) [address] [place] [address] Sodium [Moles/Vol] 136 mmol/L Normal 134-[address] [facility] Comment on above: Performed By: #### C BCA, CMP, 18204-7, 16568-0, TSHR, 18986-4, 2777-1, 2639-3, 2157-6, 3024-7 #### [facility] ([id number]) [address] [facility], [address] [place] [address] Urea nitrogen [Mass/Vol] 37 mg/dL High 5-23 [facility] Comment on above: Performed By: #### C BCA, CMP, 49143-1, 61971-0, TSHR, 88908-9, 2777-1, 2639-3, 2157-6, 3024-7 #### [facility] ([id number]) [address] [facility], [address] [address] Calcium.ionized (Bld) [Mass/ Vol]on 11-05-2024 Interpretation and review of laboratory results Abnormal [facility] IONIZED CALCIUM 4.1 mg/dL Low 4.5-5.3 [facility] Comment on above: Performed By: #### 3 8230-9 ####[facility] ([id number])[address] [facility], [address] [address] Comprehensive metabolic pane elvin 11-05-2024 Albumin [Mass/Vol] 4.5 g/dL 3.2 - 5.3 g/dL [facility] ALP [Catalytic activity/Vol] 86 U/L 39 - 130 U/L [facility] ALT No additional P-5'-P [Catalytic activity/Vol] 216 U/L High 0 - 31 U/L [facility] Anion gap [Moles/Vol] 12 mmol/L 5 - 15 mmol/L [facility] AST [Catalytic activity/Vol] 488 U/L High 0 - 41 U/L [facility] Bilirubin [Mass/Vol] 0.4 mg/dL 0.3 - 1 .2 mg/dL [facility] Calcium [Mass/Vol] 7.4 mg/dL Low 8.5 - 10. 5 mg/dL [facility] Chloride [Moles/Vol] 108 mmol/L 98 - 10 9 mmol/L [facility] CO2 [Moles/Vol] 16 mmol/L Low 22 - 32 mmol/L [facility] Creatinine [Mass/Vol] 2.26 mg/dL High 0.40 - 1.00 mg/dL [facility] eGFR (CKD-EPI)non-race dependent 30 Low - PINF [facility] Glucose [Mass/Vol] 104 mg/dL High 65 - 99 mg/dL [facility] Potassium [Moles/Vol] 4 mmol/L 3.5 - 5.0 mmol/L [facility] Protein [Mass/Vol] 7.2 g/dL 6.0 - 8.0 g/dL [facility] Sodium [Moles/Vol] 136 mmol/L 134 - 146 mmol/L [facility] Urea nitrogen [Mass/Vol] 37 mg/dL High 5 - 23 mg/dL [facility] FREE T4on 11-05-2024 Free T4 [Mass/Vol] 0.82 ng/dL Normal 0.61-1.[address] [facility] Comment on above: Performed By: #### C BCA, CMP #### [facility] ([id number]) 59 [place] [address], [address] [place] [address] Free T4 [Mass/Vol]on 025 [facility] Glucose Glucometer (BldC) [M ass/Vol]on 11-05-2024 Glucose [Mass/Vol] 112 mg/dL High 65 - 99 mg/dL [facility] Interpretation and review of laboratory results Abnormal [facility] Glucose [Mass/Vol] 112 mg/dL High 65-[address] [facility] Glucose [Mass/Vol] 108 mg/dL High 65 - 99 mg/dL Pro [facility] Interpretation and review of laboratory results Abnormal [facility] Glucose [Mass/Vol] 108 mg/dL High 65-[address] [facility] Glucose [Mass/Vol] 105 mg/dL High 65 - 99 mg/dL Pro [facility] Interpretation and review of laboratory results Abnormal [facility] Glucose [Mass/Vol] 105 mg/dL High 65-[address] [facility] Hepatitis panel, acuteon HAV IgM IA Ql Non-Reactive Non-Reactive^ Non-Reactive [facility] HBV core IgM IA Ql Non-Reactive Non-React constantine^ Non-Reactive [facility] HBV surface Ag IA Ql Non-Reactive Non-Mcintosh ctive^ Non-Reactive [facility] HCV Ab IA Ql Non-Reactive Non-Reactive^ Non-Reactive [facility] Holter monitor studyon 11-05 MANUALLY TRANSCRIBED RESULTS [facility] Ionized calciumon 11-05-2024 Calcium.ionized (Bld) [Mass/Vol] 4.1 mg/dL Low 4.5 - 5.3 mg/dL [facility] L. pneumophila Ag IA Ql (U)o n 11-05-2024 [facility] LEGIONELLA URINE AGon 2024 L. pneumophila Ag IA Ql (U) LEGIONELLA URINE AG Negative (qualifier value) NEGATIVE FOR L.PNEUMOPHILA SEROGROUP 1 ANTIGEN Normal [facility] Comment on above: Performed By: #### C QUIQUE, CMP #### [facility] ([id number]) [address], [address] [place] [address] Lactate (P nancy) [Moles/Vol]o n 11-05-2024 [facility] LACTATE W/REFLEX 1.0 mmol/L Normal 0.4-2.[address] [facility] Comment on above: Result Comment: Result did not trigger repeat Lactate, re-order if needed. Performed By: #### C BCA, CMP, 38438-7, 94550-7, TSHR, 43261-7, 2777-1, 2639-3, 2157-6, 3024-7 #### [facility] ([id number]) [address], [address] [place] [address] Lactate w/ Reflexon 11-05-19 25 Lactate (P nancy) [Moles/Vol] 1 mmol/L 0.4 - 2.0 mmol/L [facility] Legionella antigen, urineon 11-05-2024 L. pneumophila Ag IA Ql (U) Negative Negative^Nega tive [facility] MAGNESIUMon 11-05-2024 Magnesium [Mass/Vol] 2.5 mg/dL Normal 1.8-2.6 [facility] Comment on above: Performed By: #### C BCA, CMP, 11602-9, 96882-8, TSHR, 35411-9, 2777-1, 2639-3, 2157-6, 3024-7 #### [facility] ([id number]) [address], [address] [place] [address] MRSA DNA JACKSON+probe Ql (Unsp spec)on 11-05-2024 [facility] MRSA PCR NASALon 11-05-2024 MRSA DNA JACKSON+probe Ql (Unsp spec) Negative Normal NEG [facility] Comment on above: Performed By: #### C BCA, CMP #### [facility] ([id number]) [address], [address] [place] [address] Magnesiumon 11-05-2024 Magnesium [Mass/Vol] 2.5 mg/dL 1.8 - 2 .6 mg/dL [facility] Mrsa Pcr nasal swabon 2024 MRSA DNA JACKSON+probe Ql (Unsp spec) Negative Negative^Nega tive [facility] Myoglobin [Mass/Vol]on 11-05 SERUM MYOGLOBIN 2074.5 ng/mL High 14.3-65.[address] [facility] Comment on above: Performed By: #### 2 639-3, 2156-6 ####[facility] ([id number])[address], [address] [address] SERUM MYOGLOBIN 3785.4 ng/mL High 14.3-65.[address] [facility] Comment on above: Performed By: #### 2 157-6, 2639-3 ####[facility] ([id number])[address], [address] [address] Interpretation and review of laboratory results Abnormal [facility] SERUM MYOGLOBIN 6843.0 ng/mL High 14.3-65.[address] [facility] Comment on above: Performed By: #### C BCA, CMP #### [facility] ([id number]) [address], [address] [place] [address] Myoglobin, serumon Myoglobin [Mass/Vol] 3785.4 ng/mL High 14.3 - 65.8 ng/mL [facility] Myoglobin [Mass/Vol] 6843 ng/mL High 14.3 - 65.8 ng/mL [facility] No Panel Informationon 11-05 Interpretation and review of laboratory results Abnormal [facility] Interpretation and review of laboratory results Abnormal [facility] PHOSPHORUSon 11-05-2024 Phosphate [Mass/Vol] 6.4 mg/dL High 2.4-4.9 [facility] Comment on above: Performed By: #### C QUIQUE, CMP, 60720-4, 51905-1, TSHR, 57449-3, 2777-1, 2639-3, 2157-6, 3024-7 #### [facility] ([id number]) [address], [address] [place] [address] PROTIME AND INRon 11-05-2024 INR Coag (PPP) [Relative time] 1.2 {INR} High 0.8-1.1 [facility] Comment on above: Performed By: #### C BCA, CMP #### [facility] ([id number]) [address], [address] [place] [address] PT Coag (PPP) [Time] 13.6 s High 9.8-13.2 [facility] Comment on above: Performed By: #### C BCA, CMP #### [facility] ([id number]) [address], [address] [place] [address] Phosphoruson 11-05-2024 Phosphate [Mass/Vol] 6.4 mg/dL High 2.4 - 4 .9 mg/dL [facility] Procalcitoninon 11-05-2024 Procalcitonin IA [Mass/Vol] 38.12 ng/mL High NINF - 0.05 ng/mL [facility] Procalcitonin IA [Mass/Vol]o n 11-05-2024 Interpretation and review of laboratory results Abnormal [facility] PROCALCITONIN 38.12 ng/mL High <0.05 [facility] Comment on above: Result Comment: NOTE <0.50 ng/mL - Low risk of severe sepsis and/or septic shock. <2.00 ng/mL - Recommend retesting within 6-24 hours. >2.00 ng/mL - High risk of sepsis and/or septic shock. Performed By: #### C BCA, CMP, 46325-4, 26979-0, TSHR, 63895-3, 2777-1, 2639-3, 2157-6, 3024-7 #### [facility] ([id number]) [address], [address] [place] [address] Protime & INRon 11-05-2024 INR Coag (PPP) [Relative time] 1.2 {INR} High [facility] Interpretation and review of laboratory results Abnormal [facility] PT Coag (PPP) [Time] 13.6 s High [facility] RESP PATHOGENS/[id number] 11-05-2024 Respiratory pathogens DNA and RNA panel JACKSON+non-probe (Nph) SPECIMEN SOURCE NASO PHARYNX ADENOVIRUS Not detected (qualifier value) CORONAVIRUS 229E Not detected (qualifier value) CORONAVIRUS HKU1 Not detected (qualifier value) CORONAVIRUS NL63 Not detected (qualifier value) CORONAVIRUS OC43 Not detected (qualifier value) HUMAN METAPNEUVIRUS Not detected (qualifier value) RHINO/ENTEROVIRUS Not detected (qualifier value) INFLUENZA A Not detected (qualifier value) INFLUENZA B Not detected (qualifier value) PARAINFLUENZA 1 Not detected (qualifier value) PARAINFLUENZA 2 Not detected (qualifier value) PARAINFLUENZA 3 Not detected (qualifier value) PARAINFLUENZA 4 Not detected (qualifier value) RESP SYNCYTIAL VIRUS Not detected (qualifier value) BORD PARAPERTUSSIS Not detected (qualifier value) BORDETELLA PERTUSSIS Not detected (qualifier value) CHLAM.PNEUMONIAE Not detected (qualifier value) MYCO. PNEUMONIAE Not detected (qualifier value) SARS CoV 2 Not detected (qualifier value) NOTE The [employer] Respiratory Panel 2.1 (RP2.1) is a multiplexed nucleic acid test intended for the simultaneous qualitative detection and differentiation of nucleic acid from multiple viral and bacterial respiratory organisms, including nucleic acid from Severe Acute Respiratory Syndrome Coronavirus 2 (SARS-CoV-2), in nasopharyngeal swabs obtained from individuals suspected of COVID-19 by their healthcare provider. Testing is limited to laboratories certified under the Clinical Laboratory Improvement Amendments of 1988 (CLIA), to perform high complexity or moderate complexity tests. SARS-CoV-2 RNA and nucleic acids from the other respiratory viral and bacterial organisms identified by this test are generally detectable in nasopharyngeal swabs during the acute phase of infection. The detection and identification of specific viral and bacterial nucleic acids from individuals exhibiting signs and/or symptoms of respiratory infection is indicative of the presence of the identified microorganism and aids in the diagnosis of respiratory infection if used in conjunction with other clinical and epidemiological information. Positive results are indicative of the presence of the identified organism, but do not rule out co-infection with other pathogens. The agent(s) detected by the [employer] RP2.1 may not be the definite cause of disease and clinical correlation with patient history and other diagnostic information is necessary to determine patient infection status. Negative results in the setting of a respiratory illness may be due to infection with pathogens not detected by this test, or lower respiratory tract infection that may not be detected by a nasopharyngeal specimen. Negative results do not preclude SARS-CoV-2 infection and should not be used as the sole basis for patient management decisions. Negative JO ANN-CoV-2 results must be combined with clinical observations, patient history and epidemiological information. Negative results for other organisms identified by the test may require additional laboratory testing when evaluating a patient with possible respiratory tract infection. [facility] Comment on above: Performed By: #### C BCA, CMP #### [facility] ([id number]) [address], [address] [place] [address] Respiratory pathogens DNA an d RNA panel JACKSON+non-probe (Nph)on 11-05-2024 Adenovirus DNA JACKSON+non-probe Ql (Nph) Not detected Not Detected^Not Detected [facility] B. parapertussis [id number] DNA JACKSON+non-probe Ql (Nph) Not detected Not Detected^Not Detected [facility] B. pertussis toxin promoter region JACKSON+non-probe Ql (Nph) Not detected Not Detected^Not Detected [facility] C. pneumoniae DNA JACKSON+non-probe Ql (Nph) Not detected Not Detected^Not Detected [facility] FLUAV RNA JACKSON+non-probe Ql (Nph) Not detected Not Detected^Not Detected [facility] FLUBV RNA JACKSON+non-probe Ql (Nph) Not detected Not Detected^Not Detected [facility] HCoV 229E RNA JACKSON+non-probe Ql (Nph) Not detected Not Detected^Not Detected [facility] HCoV HKU1 RNA JACKSON+non-probe Ql (Nph) Not detected Not Detected^Not Detected [facility] HCoV NL63 RNA JACKSON+non-probe Ql (Nph) Not detected Not Detected^Not Detected [facility] HCoV OC43 RNA JACKSON+non-probe Ql (Nph) Not detected Not Detected^Not Detected [facility] hMPV RNA JACKSON+non-probe Ql (Nph) Not detected Not Detected^Not Detected [facility] M. pneumoniae DNA JACKSON+non-probe Ql (Nph) Not detected Not Detected^Not Detected [facility] Parainfluenza virus 1 RNA JACKSON+non-probe Ql (Nph) Not detected Not Detected^Not Detected [facility] Parainfluenza virus 2 RNA JACKSON+non-probe Ql (Nph) Not detected Not Detected^Not Detected [facility] Parainfluenza virus 3 RNA JACKSON+non-probe Ql (Nph) Not detected Not Detected^Not Detected [facility] Parainfluenza virus 4 RNA JACKSON+non-probe Ql (Nph) Not detected Not Detected^Not Detected [facility] Rhinovirus+Enteroviru s RNA JACKSON+non-probe Ql (Nph) Not detected Not Detected^Not Detected [facility] RSV RNA JACKSON+non-probe Ql (Nph) Not detected Not Detected^Not Detected [facility] SARS-CoV-2 (COVID-19) RNA JACKSON+probe Ql (Resp) Not detected Not Detected^Not Detected [facility] Specimen source Nom (Body fld) NASO PHARYNX [facility] S PNEUMONIAE AG Uon 11-05-19 25 S. pneumoniae Ag Ql (U) Negative Normal NEG [facility] Comment on above: Performed By: #### C BCA, CMP #### [facility] ([id number]) [address], [address] [place] [address] S Pneumoniae AG, urineon S. pneumoniae Ag Ql (U) Negative Negative^Nega tive [facility] S. pneumoniae Ag Ql (U)on [facility] T4, freeon 11-05-2024 Free T4 [Mass/Vol] 0.82 ng/dL 0.61 - 1. 60 ng/dL [facility] TSH WITH REFLEXon 11-05-2024 TSH 0.39 uIU/mL Low 0.49-4.67 [facility] Comment on above: Performed By: #### C BCA, CMP, 93512-2, 90056-7, TSHR, 45616-3, 2777-1, 2639-3, 2157-6, 3024-7 #### [facility] ([id number]) [address] [place] [address], [address] [place] [address] TSH with Reflexon 11-05-2024 Interpretation and review of laboratory results Abnormal [facility] TSH Qn 0.39 m[IU]/L Low [facility] Vancomycin [Mass/Vol]on [facility] VANCOMYCIN 10.5 ug/mL Normal 5.0-40.0 [facility] Comment on above: Result Comment: Peak 30-40 ug/mL Trough 5-20 ug/ml Performed By: #### 2 0578-1 ####[facility] ([id number])[address], [address] [address] [facility] VANCOMYCIN 28.4 ug/mL Normal 5.0-40.0 [facility] Comment on above: Result Comment: Peak 30-40 ug/mL Trough 5-20 ug/ml Performed By: #### Dhruv LEI CMP #### [facility] ([id number]) [address], [address] [place] [address] Vancomycin, randomon 025 Vancomycin [Mass/Vol] 10.5 ug/mL 5.0 - 40.0 ug/mL [facility] Vancomycin [Mass/Vol] 28.4 ug/mL 5.0 - 40.0 ug/mL [facility] BLOOD CULTUREon 11-04-2024 Bacteria identified Aer cx Nom (Bld) CULTURE RESULTS NO GROWTH 5 DAYS Normal [facility] Bacteria identified Aer cx Nom (Bld) CULTURE RESULTS NO GROWTH 5 DAYS Normal [facility] CBC AND AUTO DIFFon 11-04-19 25 Band form neutrophils/100 WBC (Bld) 5.0 % Normal [facility] Comment on above: Performed By: #### C SYED LEI, 1988-02, 67675-2, 85196-2, 5643- 2, 2157-6 #### [facility] ([id number]) [address] [place] [address], [place] [address] Erythrocyte distribution width (RBC) [Ratio] 13.6 % Normal 11.5-15.0 [facility] Comment on above: Performed By: #### C SYED LEI, 1988-02, , 80219-2, 5643- 2, 2157-03 #### [facility] ([id number]) [address] [place] [address] Hematocrit (Bld) [Volume fraction] 40.2 % Normal 35-47 [facility] Comment on above: Performed By: #### C QUIQUE [facility], 1988-02, , 45539-1, 2, 2157-03 #### [facility] ([id number]) [address] [place] [address] Hemoglobin (Bld) [Mass/Vol] 13.2 g/dL Normal 11.7-15.5 [facility] Comment on above: Performed By: #### C QUIQUE [facility], 1988-02, , 01685-5, , 2157-03 #### [facility] ([id number]) [address] [place] [address] Lymphocytes (Bld) [#/Vol] 0.8 10*3/uL Low 1.0-3.5 [facility] Comment on above: Performed By: #### C QUIQUE [facility], 1988-02, , 14613-7, , 2157-03 #### [facility] ([id number]) [address] [place] [address] Lymphocytes/100 WBC (Bld) 2.0 % Normal [facility] Comment on above: Performed By: #### C SYED LEI, 1988-02, , 61199-8, , 2157-03 #### [facility] ([id number]) [address] [place] [address]90 MCH (RBC) [Entitic mass] 29.5 pg Normal 27-34 [facility] Comment on above: Performed By: #### C SYED LEI, 1988-02, , 05927-2, 2, 2157-03 #### [facility] ([id number]) [address] [place] [address] MCHC (RBC) [Mass/Vol] 32.9 g/dL Normal 32-36 [facility] Comment on above: Performed By: #### Dhruv LEI [facility], 1988-02, , 69536-8, , 2157-03 #### [facility] ([id number]) [address] [place] [address]9220 MCV (RBC) [Entitic vol] 90 fL Normal 80-100 [facility] Comment on above: Performed By: #### C QUIQUE [facility], 1988-02, , 45775-9, , 2157-03 #### [facility] ([id number]) [address] [place] [address] Monocytes (Bld) [#/Vol] 3.6 10*3/uL High 0-0.9 [facility] Comment on above: Performed By: #### C QUIQUE [facility], 1988-02, , 52331-9, , 2157-03 #### [facility] ([id number]) [address] [place] [address] Monocytes/100 WBC (Bld) 9.0 % Normal [facility] Comment on above: Performed By: #### Dhruv LEI [facility], 1988-02, , 05719-2, 5642- , 2157-03 #### [facility] ([id number]) [address] [place] [address] Neutrophils (Bld) [#/Vol] 35.8 10*3/uL High 1.5-6.6 [facility] Comment on above: Performed By: #### Dhruv LEI [facility], 1988-02, , 32424-8, 5643- 2, 2157-03 #### [facility] ([id number]) [address] [place] [address] NUCLEATED RBC 1.0 /100 WBC Normal 0.0-1.0 [facility] Comment on above: Performed By: #### C QUIQUE, CMP, 1988-02, , 60395-2, 5642- 2, 2157-03 #### [facility] ([id number]) [address] [place] [address]80 Platelet mean volume (Bld) [Entitic vol] 7.6 fL Normal 7-12 [facility] Comment on above: Performed By: #### C QUIQUE, CMP, 1988-02, , 64678-9, , 2157-03 #### [facility] ([id number]) [address] [place] [address]7582 Platelets (Bld) [#/Vol] 344 10*3/uL Normal 150-450 [facility] Comment on above: Performed By: #### C QUIQUE, CMP, 1988-02, , 83136-4, , 2157-03 #### [facility] ([id number]) [address] [place] [address]78 POLYCHROMASIA 1+ Abnormal NONE [facility] Comment on above: Performed By: #### C QUIQUE, CMP, 1988-02, , 86320-3, 5642- , 2157-03 #### [facility] ([id number]) [address] [place] [address] 01513 RBC COUNT 4.47 X10E12/L Normal 3.80-5.20 [facility] Comment on above: Performed By: #### C QUIQUE, CMP, 1988-02, , 36042-2, 5642- 2, 2157-03 #### [facility] ([id number]) [address] [place] [address] 94798 SEG NEUTROPHIL 84.0 % Normal [facility] Comment on above: Performed By: #### C BCA, CMP, 1988-02, , 39766-6, 5643- 2, 2157-03 #### [facility] ([id number]) [address] [place] [address] 44207 WBC (Bld) [#/Vol] 40.2 10*3/uL High 4.0-11.0 [facility] Comment on above: Performed By: #### C BCA, CMP, 1988-02, , 36535-8, 5643- 2, 2157-03 #### [facility] ([id number]) [address] [place] [address]4611 CK [Catalytic activity/Vol]o n 11-04-2024 CPK 70257 U/L High 24-170 [facility] Comment on above: Performed By: #### C BCA, CMP, 1988-02, , 16666-5, 5643- 2, 2157-03 #### [facility] ([id number]) [address] [place] [address] 91665 COMPREHENSIVE METABOLIC PANE Elvin 11-04-2024 Albumin [Mass/Vol] 4.5 g/dL Normal 3.2-5.3 [facility] Comment on above: Performed By: #### C BCA, CMP, 1988-02, , 08197-0, 5643- 2, 2157-03 #### [facility] ([id number]) [address] [place] [address] 73598 ALP [Catalytic activity/Vol] 96 U/L Normal 39-130 [facility] Comment on above: Performed By: #### C BCA, CMP, 1988-02, , 10745-9, 5643- 2, 2157-6 #### [facility] ([id number]) [address] [place] [address] 68674 ALT [Catalytic activity/Vol] 122 U/L High 0-31 [facility] Comment on above: Performed By: #### C BCA, CMP, 1988-02, , 13020-2, 5643- 2, 2157-03 #### [facility] ([id number]) [address] [place] [address] 31770 Anion gap [Moles/Vol] 12 mmol/L Normal 5-15 [facility] Comment on above: Performed By: #### C BCA, CMP, 1988-02, , 79192-0, 2, 2157-03 #### [facility] ([id number]) [address] [place] [address] 72555 AST [Catalytic activity/Vol] 356 U/L High 0-41 [facility] Comment on above: Performed By: #### C BCA, CMP, 1988-02, , 03810-1, 5642- 2, 2157-03 #### [facility] ([id number]) [address] [place] [address] 22169 Bilirubin [Mass/Vol] 0.6 mg/dL Normal 0.3-1.2 [facility] Comment on above: Performed By: #### C BCA, CMP, 1988-02, , 57781-8, 43- 2, 2157-03 #### [facility] ([id number]) [address] [place] [address]305 Calcium [Mass/Vol] 8.2 mg/dL Low 8.5-10.5 [facility] Comment on above: Performed By: #### C BCA, CMP, 1988-02, , 45384-4, 5643- 2, 2157-03 #### [facility] ([id number]) [address] [place] [address] Chloride [Moles/Vol] 99 mmol/L Normal 98-109 [facility] Comment on above: Performed By: #### C SYED LEI, 1988-02, , 79299-4, 43- 2, 2157-03 #### [facility] ([id number]) [address] [place] [address] 73296 CO2 [Moles/Vol] 19 mmol/L Low 22-32 [facility] Comment on above: Performed By: #### C SYED LEI, 1988-02, , 15493-8, 5642- 2, 2157-03 #### [facility] ([id number]) [address] [place] [address] 43073 Creatinine [Mass/Vol] 1.88 mg/dL High 0.40-1.00 [facility] Comment on above: Result Comment: METH OD TRACEABLE TO IDMS STANDARD Performed By: #### C SYED LEI, 1988-02, , 08157-5, 5642-2, 2157-03 #### [facility] ([id number]) [address] [place] [address] 69528 GFR/1.73 sq M.predicted among non-blacks MDRD (S/P/Bld) [Vol rate/Area] 38 mL/min/{1.73_m2} Low >59 [facility] Comment on above: Result Comment: Reported eGFR is based on the CKD-EPI 2020 equation that does not use a race coefficient. Performed By: #### C SYED LEI, 1988-02, , 91205-3, 2, 2157-03 #### [facility] ([id number]) [address] [place] [address] 24195 Glucose [Mass/Vol] 88 mg/dL Normal 65-99 [facility] Comment on above: Performed By: #### C SYED LEI, 1988-02, , 78329-4, 5643- 2, 2157-03 #### [facility] ([id number]) [address] [place] [address] 04213 Potassium [Moles/Vol] 2.8 mmol/L Low 3.5-5.0 [facility] Comment on above: Performed By: #### C BCA, [facility], 1988-02, , 17128-5, 56- 2, 2157-03 #### [facility] ([id number]) [address] [place] [address] 95348 Protein [Mass/Vol] 8.2 g/dL High 6.0-8.0 [facility] Comment on above: Performed By: #### C BCA, [facility], 1988-02, , 29411-0, , 2157-03 #### [facility] ([id number]) [address] [place] [address] 14032 Sodium [Moles/Vol] 130 mmol/L Low 134-146 [facility] Comment on above: Performed By: #### C BCA, [facility], 1988-02, , 92648-3, , 2157-03 #### [facility] ([id number]) [address] [place] [address] 72232 Urea nitrogen [Mass/Vol] 27 mg/dL High 5-23 [facility] Comment on above: Performed By: #### C BCA, CMP, 1988-02, , 90747-2, 2, 2157-03 #### [facility] ([id number]) [address] [place] [address] 39774 CRP [Mass/Vol]on 11-04-2024 C REACTIVE PROTEIN 1.2 mg/dL High 0.000-0.744 [facility] Comment on above: Performed By: #### C BCA, CMP, 5, 08625-7, 66490-1, 5643- 2, 2157-6 #### [facility] ([id number]) [address] [place] [address], [place] [address] CT ABDOMEN AND PELVIS WO CON Ton 11-04-2024 CT ABDOMEN AND PELVIS WO CONT CT ABDOMEN AND PELVIS WO CONT CLINICAL INFORMATION: Sepsis. TECHNIQUE: CT Abdomen and Pelvis without intravenous contrast. All CT scans at this facility use dose modulation, iterative reconstruction, and/or weight based dosing when appropriate to reduce radiation dose to as low as reasonably achievable. COMPARISON: No relevant prior studies available. FINDINGS: Assessment in the absence of intravenous contrast is suboptimal, especially with respect to vasculature, metastatic disease, and infectious precesses [if clinically relevant]. Despite this constraint, best attempt is made: Dependent atelectasis. Mild distal esophageal wall thickening. Hepatic steatosis. Normal gallbladder, spleen, adrenal glands, pancreas. Liquid stool throughout visualized large bowel extending to the level of the anus. Normal appendix. No free fluid or fluid collections. Unremarkable uterus. Prominent bilateral ovaries. No free fluid. No aggressive osseous lesions. Degenerative changes lumbar spine, posterior disc osteophyte complex at L5-S1. Question large disc extrusion at L4-5. IMPRESSION: * Substantial liquid stool throughout much of the large bowel, suspect underlying colitis/enteritis. Similarly, distal esophageal wall thickening, correlate for clinical signs of esophagitis. No high-grade transition point to suggest obstruction. Finalized by Rohit Villarreal MD on 11/04/2024 8:25 PM Normal [facility] CT BRAIN WO CONTon CT BRAIN WO CONT CT BRAIN WO CONT EXAM:CT BRAIN WO CONT INDICATION: Seizure disorder, clinical change COMPARISON: 12/27/2023 TECHNIQUE: Standard noncontrast axial CT sections through the head. All CT scans at this facility use dose modulation, iterative reconstruction, and/or weight based dosing when appropriate to reduce radiation dose to as low as reasonably achievable. FINDINGS: Brain Parenchyma: No acute hemorrhage, cerebral edema, or acute cortical infarction. No mass effect, or midline shift. Ventricles and Sulci: Normal for age. Extra-Axial Spaces: No extra-axial fluid collection. Orbits, paranasal sinuses, midface structures, mastoid air cells: Mild polypoid mucosal thickening of the maxillary sinuses. Cranium and extracranial soft tissues: Normal IMPRESSION: No acute or subacute intracranial abnormalities. Finalized by Subhash Colon on 11/04/2024 6:54 PM Normal [facility] ETHANOLon 11-04-2024 Ethanol [Mass/Vol] mg/dL Normal 0.00-0.08 [facility] Comment on above: Result Comment: This report is intended for use in clinical monitoring or management of patients. Performed By: #### C SYED LEI, 1988-02, , 11449-7, 5643-2, 2157-03 #### [facility] ([id number]) [address] [place] [address] 40831 HCG ( test) Ql (U)o n 11-04-2024 Beta HCG ( test) Ql (U) Negative Normal NEG [facility] Comment on above: Performed By: #### C QUIQUE [facility], 1988-02, , 58998-7, 5643- 2, 2157-03 #### [facility] ([id number]) [address] [place] [address] 40251 Lactate (P nancy) [Moles/Vol]o n 11-04-2024 Lactate [Moles/Vol] 1.2 mmol/L Normal 0.4-2.0 [facility] Comment on above: Performed By: #### C QUIQUE [facility], 1988-02, , 63865-4, 5643- 2, 2157-03 #### [facility] ([id number]) [address] [place] [address] 27144 LACTATE W/REFLEX 2.9 mmol/L High 0.4-2.0 [facility] Comment on above: Performed By: #### 3 2133-1 #### [facility] ([id number]) [address] [place] [address] 48229 MAGNESIUMon 11-04-2024 Magnesium [Mass/Vol] 2.8 mg/dL High 1.8-2.6 [facility] Comment on above: Performed By: #### C SYED LEI, 1988-02, 11288-7, 18229-5, 5643- 2, 2157-03 #### [facility] ([id number]) [address] [place] [address] 46449 Procalcitonin IA [Mass/Vol]o n 11-04-2024 PROCALCITONIN 40.05 ng/mL High <0.05 [facility] Comment on above: Result Comment: NOTE <0.50 ng/mL - Low risk of severe sepsis and/or septic shock. <2.00 ng/mL - Recommend retesting within 6-24 hours. >2.00 ng/mL - High risk of sepsis and/or septic shock. Performed By: #### C SYED LEI, 1988-02, , 21733-4, 43, 2157-03 #### [facility] ([id number]) [address] [place] [address] 59779 SARS/FLU A+B/RSV by NAAT/Mol ecularon 11-04-2024 SARS/FLU A+B/RSV by NAAT/Molecular FLU A PCR Negative (qualifier value) FLU B PCR Negative (qualifier value) RSV by PCR Negative (qualifier value) SARS CoV 2 Not detected (qualifier value) NOTE The Xpert Xpress SARS-CoV-2/Flu/RSV Plus test is a rapid, multiplexed real-time RT-PCR test intended for the simultaneous qualitative detection and differentiation of SARS-CoV-2, influenza A, influenza B and respiratory syncytial virus (RSV) viral RNA from individuals suspected of respiratory viral infection consistent with COVID-19 by their healthcare provider. This test has not been validated in asymptomatic patients. The Xpert Xpress SARS-CoV-2 test is intended for use by qualified and trained operators who are performing tests using either [employer] DX or [employer] systems and is limited to laboratories that meet the CLIA requirements to perform high and moderate complexity tests. The Xpert Xpress SARS-CoV-2/Flu/RSV Plus is only for use under the Food and Drug Administration's Emergency Use Authorization. Results are for the simultaneous detection and differentiation of SARS-CoV-2, influenza A, influenza B and RSV nucleic acids in clinical specimens. SARS-CoV-2, influenza A, influenza B and RSV RNA identified by this test are generally detectable in upper respiratory samples during the acute phase of infection. Positive results are indicative of the presence of the identified virus, but do not rule out bacterial infection or co-infection with other pathogens not detected by this test. Clinical correlation with patient history and other diagnostic information is necessary to determine patient infection status. The agent detected may not be the definite cause of disease. Negative results do not preclude SARS-CoV-2, influenza A, influenza B and RSV infection and should not be used as the sole basis for treatment or other patient management decisions. Negative results must be combined with clinical observations, patient history and epidemiological information. An Invalid result may occur with specimen-associated inhibition unable to be resolved with specimen repeat. Fact Sheet for Healthcare Providers: https://www.fda.gov/ media/688558/downloa d Fact Sheet for Patients: https://www.fda.gov/ media/954392/downloa d Normal [facility] Comment on above: Performed By: #### C OVFLR #### [facility] ([id number]) [address] [place] [address] 35781 URINE CULTUREon 11-04-2024 Bacteria identified Cx Nom (U) CULTURE RESULTS 10,000 to 50,000 ORGANISMS/mL NORMAL URO GENITAL RAYMOND Normal [facility] Comment on above: Performed By: #### C SYED LEI, 1988-02, 00384-5, 99150-8, 5643- 2, 2157-03 #### [facility] ([id number]) [address] [place] [address] 04536 URN MACROSCOPIC NURon 2024 BILIRUBIN KRISTA Negative Normal NEG [facility] Comment on above: Performed By: #### C SYED LEI, 1988-02, 53405-6, 12726-0, 5643- 2, 2156- #### [facility] ([id number]) [address] [place] [address] [place] [address] BLOOD/HGB KRISTA Large Abnormal NEG [facility] Comment on above: Performed By: #### C QUIQUE, CMP, 1988-02, , 06195-7, 5643- 2, 2157-03 #### [facility] ([id number]) [address] [place] [address] 11773 GLUCOSE KRISTA Negative Normal NEG [facility] Comment on above: Performed By: #### C QUIQUE, CMP, 1988-02, , 59611-4, 5643- 2, 2157-03 #### [facility] ([id number]) [address] [place] [address] 58360 KETONES KRISTA Negative Normal NEG [facility] Comment on above: Performed By: #### C QUIQUE, [facility], 1988-02, , 20443-5, 5643- 2, 2157-03 #### [facility] ([id number]) [address] [place] [address] [place] [address] LEUKOCYTE ESTERASE KRISTA Trace Abnormal NEG [facility] Comment on above: Performed By: #### C QUIQUE, CMP, 1988-02, , 48278-1, 5643- 2, 2157-03 #### [facility] ([id number]) [address] [place] [address] 21550 NITRITE KRISTA Negative Normal NEG [facility] Comment on above: Performed By: #### C QUIQUE, CMP, 1988-02, , 31592-9, 5643- 2, 2157-03 #### [facility] ([id number]) [address] [place] [address] 36734 PH KRISTA 5.5 Normal 5.0-8.5 [facility] Comment on above: Performed By: #### C QUIQUE, CMP, 1988-02, , 93329-9, 5643- 2, 2157-03 #### [facility] ([id number]) [address] [place] [address] 38506 PROTEIN KRISTA 100 mg/dL Abnormal NEG [facility] Comment on above: Performed By: #### C QUIQUE, CMP, 1988-02, 26650-8, 20199-1, 5643- 2, 6 #### [facility] ([id number]) [address] [place] [address] 56472 SPECIFIC GRAVITY KRISTA 1.010 Normal 1.003-1.035 Pro [facility] Comment on above: Performed By: #### C QUIQUE, [facility], 1988-02, , 46538-5, 5643- 2, 2157-03 #### [facility] ([id number]) [address] [place] [address] 49963 UROBILINOGEN KRISTA 0.2 eu/dL Normal <1.1 [facility] Comment on above: Performed By: #### C QUIQUE, [facility], 1988-02, , 77467-2, 5643- 2, 2157-03 #### [facility] ([id number]) [address] [place] [address] 32447 XR CHEST 1 VWon 11-04-2024 XR CHEST 1 VW XR CHEST 1 VW XR CHEST 1 VW 11/04/2024 8:13 PM INDICATION: sepsis, seizures, transient alteration of awareness, tachycardia COMPARISON: XR chest 11/04/2024 TECHNIQUE: AP supine radiographic view(s) obtained. FINDINGS: Lines/Tubes/Devices: None. Respiratory: No pleural effusion or focal consolidation. Hypoventilation with bronchovascular crowding. Cardiomediastinum: Nonenlarged silhouette. IMPRESSION: * No acute pulmonary process. Hypoventilation with bronchovascular crowding. Approved by Resident: Regis Dotson MD on 11/04/2024 8:39 PM I, Kane Burger MD have personally reviewed the image(s) and agree with and/or edited the report Finalized by Kane Burger MD on 11/04/2024 9:06 PM Normal [facility] lamoTRIgine [Mass/Vol]on Lamotrigine, S 0.9 mcg/mL Low 3.0-15.0 [facility] Comment on above: Result Comment: NOTE ADDITIONAL INFORMATION This test was developed and its performance characteristics determined by [facility] in a manner consistent with CLIA requirements. This test has not been cleared or approved by the U.S. Food and Drug Administration. Test Performed by: [facility] [place] [address] [employer]ograph Press Feeder: Ulysses Juarez Ph.D.; CLIA# [id number] Performed By: ###Yi Bartlett BCA, CMP, 1988-02, 32189-5, 22563-1, 5643-2, 2157-6 #### [facility] ([id number]) [address] [place] [address] levETIRAcetam [Mass/Vol]on 0 11-04-2024 Levetiracetam, S 1.6 mcg/mL Low 10.0 - 40.0 [facility] Comment on above: Result Comment: NOTE ADDITIONAL INFORMATION This test was developed and its performance characteristics determined by [facility] in a manner consistent with CLIA requirements. This test has not been cleared or approved by the U.S. Food and Drug Administration. Test Performed by: [facility] - [address] [address] [employer] Press Feeder: Ulysses Juarez Ph.D.; CLIA# [id number] Performed By: ###Yi Bartlett BCA, CMP, 1988-02, 34755-6, 85838-9, 5643-2, 2157-6 #### [facility] ([id number]) [address] [place] [address], [place] [address] CBC AND AUTO DIFFon 09-12-20 ABSOLUTE BASOPHIL 0.1 X10E9/L Normal 0.0-0.[address] [facility] Comment on above: Performed By: #### C BCA, CMP #### [facility] ([id number]) [address], [address] [place] [address] ABSOLUTE NEUTROPHIL 7.8 X10E9/L High 1.5-6.6 [facility] Comment on above: Performed By: #### C QUIQUE, CMP #### [facility] ([id number]) [address], [address] [place] [address] Basophils/100 WBC (Bld) 1.3 % Normal [facility] Comment on above: Performed By: #### C QUIQUE, CMP #### [facility] ([id number]) [address], [address] [place] [address] Eosinophils (Bld) [#/Vol] 0.4 10*3/uL Normal 0.0-0.4 [facility] Comment on above: Performed By: #### C QUIQUE, CMP #### [facility] ([id number]) [address], [address] [place] [address] Eosinophils/100 WBC (Bld) 3.3 % Normal [facility] Comment on above: Performed By: #### C QUIQUE, CMP #### [facility] ([id number]) [address], [address] [place] [address] Erythrocyte distribution width (RBC) [Ratio] 13.4 % Normal 11.5-15.0 [facility] Comment on above: Performed By: #### C BCA, CMP #### [facility] ([id number]) [address], [address] [place] [address] Hematocrit (Bld) [Volume fraction] 39.8 % Normal 35-47 [facility] Comment on above: Performed By: #### C BCA, CMP #### [facility] ([id number]) [address], [address] [place] [address] Hemoglobin (Bld) [Mass/Vol] 13.3 g/dL Normal 11.7-15.5 [facility] Comment on above: Performed By: #### C BCA, CMP #### [facility] ([id number]) [address], [address] [place] [address] Lymphocytes (Bld) [#/Vol] 2.4 10*3/uL Normal 1.0-3.5 [facility] Comment on above: Performed By: #### C BCA, CMP #### [facility] ([id number]) [address], [address] [place] [address] Lymphocytes/100 WBC (Bld) 21.2 % Normal [facility] Comment on above: Performed By: #### C BCA, CMP #### [facility] ([id number]) [address], [address] [place] [address] MCH (RBC) [Entitic mass] 30.0 pg Normal 27-34 [facility] Comment on above: Performed By: #### C BCA, CMP #### [facility] ([id number]) [address], [address] [place] [address] MCHC (RBC) [Mass/Vol] 33.5 g/dL Normal 32-36 [facility] Comment on above: Performed By: #### C BCA, CMP #### [facility] ([id number]) [address], [address] [place] [address] MCV (RBC) [Entitic vol] 89 fL Normal 80-100 [facility] Comment on above: Performed By: #### C BCA, CMP #### [facility] ([id number]) [address], [address] [place] [address] Monocytes (Bld) [#/Vol] 0.7 10*3/uL Normal 0-0.9 [facility] Comment on above: Performed By: #### C QUIQUE, CMP #### [facility] ([id number]) [address], [address] [place] [address] Monocytes/100 WBC (Bld) 6.3 % Normal [facility] Comment on above: Performed By: #### C BCA, CMP #### [facility] ([id number]) [address], [address] [place] [address] Neutrophils/100 WBC (Bld) 67.9 % Normal [facility] Comment on above: Performed By: #### C BCA, CMP #### [facility] ([id number]) [address], [address] [place] [address] Platelet mean volume (Bld) [Entitic vol] 7.7 fL Normal 7-12 [facility] Comment on above: Performed By: #### C BCA, CMP #### [facility] ([id number]) [address], [address] [place] [address] Platelets (Bld) [#/Vol] 333 10*3/uL Normal 150-450 [facility] Comment on above: Performed By: #### C BCA, CMP #### [facility] ([id number]) [address], [address] [place] [address] RBC COUNT 4.45 X10E12/L Normal 3.80-5.20 [facility] Comment on above: Performed By: #### C BCA, CMP #### [facility] ([id number]) [address], [address] [place] [address] WBC (Bld) [#/Vol] 11.4 10*3/uL High 4.0-11.0 [facility] Comment on above: Performed By: #### C BCA, CMP #### [facility] ([id number]) [address], [address] [place] [address] COMPREHENSIVE METABOLIC PANE Elvin 09-12-2024 Albumin [Mass/Vol] 4.4 g/dL Normal 3.2-5.[address] [facility] Comment on above: Performed By: #### C BCA, CMP #### [facility] ([id number]) [address], [address] [place] [address] ALP [Catalytic activity/Vol] 87 U/L Normal 39-130 [facility] Comment on above: Performed By: #### C BCA, CMP #### [facility] ([id number]) [address], [address] [place] [address] ALT [Catalytic activity/Vol] 17 U/L Normal 0-31 [facility] Comment on above: Performed By: #### C BCA, CMP #### [facility] ([id number]) [address], [address] [place] [address] Anion gap [Moles/Vol] 11 mmol/L Normal 5-15 [facility] Comment on above: Performed By: #### C BCA, CMP #### [facility] ([id number]) [address], [address] [place] [address] AST [Catalytic activity/Vol] 15 U/L Normal 0-41 [facility] Comment on above: Performed By: #### C BCA, CMP #### [facility] ([id number]) [address], [address] [place] [address] Bilirubin [Mass/Vol] 0.2 mg/dL Low 0.3-1.2 [facility] Comment on above: Performed By: #### C BCA, CMP #### [facility] ([id number]) [address], [address] [place] [address] Calcium [Mass/Vol] 9.4 mg/dL Normal 8.5-10.[address] [facility] Comment on above: Performed By: #### C BCA, CMP #### [facility] ([id number]) [address], [address] [place] [address] Chloride [Moles/Vol] 100 mmol/L Normal 98-109 [facility] Comment on above: Performed By: #### C BCA, CMP #### [facility] ([id number]) [address], [address] [place] [address] CO2 [Moles/Vol] 29 mmol/L Normal 22-32 [facility] Comment on above: Performed By: #### C BCA, CMP #### [facility] ([id number]) [address], [address] [place] [address] Creatinine [Mass/Vol] 0.64 mg/dL Normal 0.40-1.00 [facility] Comment on above: Result Comment: METH OD TRACEABLE TO IDMS STANDARD Performed By: #### C BCA, CMP #### [facility] ([id number]) [address], [address] [place] [address] eGFR (CKD-EPI) NON-RACE DEPENDENT >90 Normal >59 [facility] Comment on above: Result Comment: Reported eGFR is based on the CKD-EPI 2021 equation that does not use a race coefficient. Performed By: #### C BCA, CMP #### [facility] ([id number]) [address] [place] [address] Glucose [Mass/Vol] 73 mg/dL Normal 65-[address] [facility] Comment on above: Performed By: #### C BCA, CMP #### [facility] ([id number]) [address], [address] [place] [address] Potassium [Moles/Vol] 4.3 mmol/L Normal 3.5-5.0 [facility] Comment on above: Performed By: #### C BCA, CMP #### [facility] ([id number]) [address], [address] [place] [address] Protein [Mass/Vol] 7.3 g/dL Normal 6.0-8.[address] [facility] Comment on above: Performed By: #### C BCA, CMP #### [facility] ([id number]) [address], [address] [place] [address] Sodium [Moles/Vol] 140 mmol/L Normal 134-[address] [facility] Comment on above: Performed By: #### C BCA, CMP #### [facility] ([id number]) [address], [address] [place] [address] Urea nitrogen [Mass/Vol] 12 mg/dL Normal 5-23 [facility] Comment on above: Performed By: #### C BCA, CMP #### [facility] ([id number]) [address], [address] [place] [address] Cholesterol [Mass/volume] in Serum or PlasmaOrdered By: Obie Harley on 04-18-2024 Cholesterol [Mass/Vol] 198 mg/dL 140-200 [facility] Comment on above: Chol less than 200 m g/dl low riskChol 201-239 mg/dl borderline riskChol 240 mg/dl and greater high risk Cholesterol in LDL Calc [Mas s/Vol]Ordered By: Obie Harley on 04-18-2024 Cholesterol in LDL [Mass/Vol] 107 mg/dL High 0-100 [facility] Comment on above: LDL ATP III CLASSIFI CATIONLDL less than 100 mg/dL OptimalLDL 100-129 mg/dL Near or above optimalLDL 130-159 mg/dL Borderline highLDL 160-189 mg/dL HighLDL greater than 189 mg/dL Very high Cholesterol in VLDL Calc [Ma ss/Vol]Ordered By: Obie Harley on 04-18-2024 Cholesterol in VLDL [Mass/Vol] 17 mg/dL [facility] Serum or plasma high density lipoprotein (HDL) cholesterol measurementOrdered By: Obie Harley on 04-18-2024 Cholesterol in HDL [Mass/Vol] 74 mg/dL 23-92 [facility] Comment on above: HDL CHOL ATP-III CLA SSIFICATION Cardiovascular RiskHDL > or equal to 60 mg/dL LOWHDL < 40 mg/dL HIGH Serum or plasma total choles terol/high density lipoprotein (HDL) cholesterol mass ratOrdered By: Obie Harley on 04-18-2024 Cholesterol.total/Cho lesterol in HDL [Mass ratio] 2.7 {ratio} <5.0 [facility] Thyrotropin [Units/volume] i n Serum or PlasmaOrdered By: Obie Harley on 04-18-2024 TSH Qn 0.78 m[IU]/L 0.45-5.33 [facility] Triglyceride [Mass/volume] i n Serum or PlasmaOrdered By: Obie Harley on 04-18-2024 Triglyceride [Mass/Vol] 85 mg/dL 0-149 [facility] Comment on above: TRIG ATP III CLASSIF ICATIONTRIG less than 150 mg/dL NormalTRIG 150-199 mg/dL Borderline highTRIG 200-500 mg/dL High TRIG greater than 500 mg/dL Very highStandard traceable to the Center for Disease Conrtrol and Prevention (CDC) test method. Vitamin D+Metabolites [Mass/ volume] in Serum or PlasmaOrdered By: Obie Harley on 04-18-2024 Vitamin D+Metabolites [Mass/Vol] 21.8 ng/mL Low 30-100 [facility] Comment on above: VITAMIN D STATUS 25( [place])VITAMIN D RANGE (ng/mL) Deficient <20 Insufficient 20 to <30Sufficient 30 to 100Reference: Costa MF,Woo ENRIQUE, Yvrose GRIDER, et al. Evaluation,treatment, and prevention of vitamin D deficiency; an Endocrine Society clinical practice guideline. JCEM. 2010; 96(7):1911-30. Sleep Deprived EEGon 024 Images from the original result were not included. EEG REPORT (Routine) EEG Service Date: 02/23/2024 HISTORY: Yolanda Villanueva is a 23 y.o. right-handed female with seizures. The study is to assist clinical diagnosis and management. CURRENT MEDICATIONS: Flexeril, hydroxyzine, Medrol pack, Paxil, Zanaflex, Effexor TECHNICAL DESCRIPTION: This is a 25 channel digital scalp EEG that was performed utilizing [employer] 10/20 Montage System for electrode placement. Digital EEG data was collected from 25 channels. Multi-reformatted montages were used during the EEG analysis. One additional channel was used to monitor EKG during the EEG study. EEG INTERPRETATION: Duration and Quality: - Duration: 30 minutes - Quality: Fair quality for digital EEG - Artifacts: Moderate and well recognized Status of Patient: - Awake and Drowsy Background: - Anterior: Rhythmic activity with a frequency of >20 Hz and amplitude 7-10 V was seen in the bilateral anterior regions. - Posterior: Well-defined, sustained, and symmetrical posterior dominant rhythm with a frequency of 9-10 Hz and amplitude of 20-25 V in the bilateral occipital regions. This activity demonstrated waxing and waning in response to eye closing and opening. Response to Photic Stimulation: - Sustained symmetric driving was observed in the bilateral occipital regions at 7, 9, 11, 12, 13, 15, 18, and 21 Hz. Response to Hyperventilation: - Aborted after 1 minute Sleep: - The patient spent 10-20% of the recording time in light drowsiness, which was evidenced by the presence of attenuation of wakeful background and slow horizontal ocular motion. Significant Findings: - Sustained regional slowing: Not identified - Asymmetry: Not identified - Generalized slowing: Not identified - Epileptiform discharge(s): Not identified - Electrographic seizure(s): Not identified Events: - Clinical: Not identified - EEG: Not identified EEG CLASSIFICATION: Normal (Awake and Drowsy) CLINICAL CORRELATION: This study is within normal limits for age. Clinical correlation is recommended. Brisa Sanchez MD, PhD Neurology/Clinical Neurophysiology MANUALLY TRANSCRIBED RESULTS Sleep Deprived EEGOrdered By : Brisa Sanchez on 02-23-2024 [facility]: EDPROVon 01-06-2024 EDPROV HPI Chief Complaint Patient [...] (more content not included)... Normal [facility] AMYLASEon 09-25-2022 Amylase [Catalytic activity/Vol] 56 U/L Normal 25-115 [facility] Comment on above: Performed By: #### A MY, CMP, LIPA #### [facility] [address] [address] [address] Hanh Cervantes CBC AUTO DIFFon 09-25-2022 BASO # 0.1 103/ul Normal 0.0-0.1 [facility] Comment on above: Performed By: #### C BC #### [facility] [address] [place] [address] Dr. Hanh Cervantes Basophils/100 WBC (Bld) 0.5 % Normal 0.2-2.0 [facility] Comment on above: Performed By: #### C BC #### [facility] [address] [place] [address] Dr. Hanh Cervantes EO # 0.1 103/ul Normal 0.0-0.7 [facility] Comment on above: Performed By: #### C BC #### [facility] [address] [place] [address] Dr. Hanh Cervantes Eosinophils/100 WBC (Bld) 0.5 % Critically low 0.9-7.0 [facility] Comment on above: Performed By: #### C BC #### [facility] [address] [place] [address] Dr. Hanh Cervantes Erythrocyte distribution width (RBC) [Ratio] 12.4 % Normal 11.0-15.0 [facility] Comment on above: Performed By: #### C BC #### [facility] [address] [place] [address] Dr. Hanh Cervantes Hematocrit (Bld) [Volume fraction] 42.1 % Normal 36.0-48.0 [facility] Comment on above: Performed By: #### C BC #### [facility] [address] [place] [address] Dr. Hanh Cervantes Hemoglobin (Bld) [Mass/Vol] 14.3 g/dL Normal 12.0-16.0 [facility] Comment on above: Performed By: #### C BC #### [facility] [address] [place] [address] Dr. Hanh Cervantes IG # 0.04 10e3/ul Critically high 0.00-0.03 [facility] Comment on above: Performed By: #### C BC #### [facility] [address] [place] [address] Dr. Hanh Cervantes IG % 0.3 % Normal 0.0-0.5 [facility] Comment on above: Performed By: #### C BC #### [facility] [address] [place] [address] Dr. Hanh Cervantes LYMPH # 1.1 103/ul Critically low 1.2-3.8 [facility] Comment on above: Performed By: #### C BC #### [facility] [address] [place] [address] Dr. Hanh Cervantes Lymphocytes/100 WBC (Bld) 9.7 % Critically low 20.5-60.0 [facility] Comment on above: Performed By: #### C BC #### [facility] [address] [place] [address] Dr. Hanh Cervantes MANUAL DIFF REQ NO Normal [facility] Comment on above: Performed By: #### C BC #### [facility] [address] [place] [address] Dr. Hanh Cervantes MCH (RBC) [Entitic mass] 28.9 pg Normal 26.7-34.0 [facility] Comment on above: Performed By: #### C BC #### [facility] [address] [place] [address] Dr. Hanh Cervantes MCHC (RBC) [Mass/Vol] 34.0 g/dL Normal 29.9-35.2 [facility] Comment on above: Performed By: #### C BC #### [facility] [address] [place] [address] Dr. Hanh Cervantes MCV (RBC) [Entitic vol] 85.2 fL Normal 81.0-99.0 [facility] Comment on above: Performed By: #### C BC #### [facility] [address] [place] [address] Dr. Hanh Cervantes MONO # 0.5 103/ul Normal 0.3-0.8 [facility] Comment on above: Performed By: #### C BC #### [facility] [address] [place] [address] Dr. Hanh Cervantes Monocytes/100 WBC (Bld) 4.4 % Normal 1.7-12.0 [facility] Comment on above: Performed By: #### C BC #### [facility] [address] [place] [address] Dr. Hanh Cervantes NEUT # 9.9 103/ul Critically high 1.4-6.5 [facility] Comment on above: Performed By: #### C BC #### [facility] [address] [place] [address] Dr. Hanh Cervantes Neutrophils/100 WBC (Bld) 84.6 % Critically high 43.0-75.0 [facility] Comment on above: Performed By: #### C BC #### [facility] [address] [place] [address] Dr. Hanh Cervantes Platelet mean volume (Bld) [Entitic vol] 10.1 fL Normal 9.5-13.5 [facility] Comment on above: Performed By: #### C BC #### [facility] [address] [place] [address] Dr. Hanh Cervantes PLT 368 103/ul Normal 150-450 [facility] Comment on above: Performed By: #### C BC #### [facility] [address] [place] [address] Dr. Hanh Cervantes RBC 4.94 106/ul Normal 4.20-5.40 [facility] Comment on above: Performed By: #### C BC #### [facility] [address] [place] [address] Dr. Hanh Cervantes WBC 11.7 103/ul Critically high 4.0-11.0 [facility] Comment on above: Performed By: #### C BC #### [facility] [address] [place] [address] Dr. Hanh Cervantes LIPASEon 09-25-2022 Lipase [Catalytic activity/Vol] 82.0 U/L Normal 73.0-393.0 [facility] Comment on above: Performed By: #### A MY, CMP, LIPA #### [facility] [address] [address] [address] Hanh Cervantes PROF 14(COMP METB)on 022 Albumin [Mass/Vol] 4.6 g/dL Normal 3.4-5.0 [facility] Comment on above: Performed By: #### A MY, CMP, LIPA #### [facility] [address] [address] [address] Hanh Cervantes Albumin/Globulin [Mass ratio] 1.1 {ratio} Normal [facility] Comment on above: Performed By: #### A MY, CMP, LIPA #### [facility] [address] [address] [address] Hanh Cervantes ALP [Catalytic activity/Vol] 88 U/L Normal 46-116 [facility] Comment on above: Performed By: #### A MY, CMP, LIPA #### [facility] [address] [address] [address] Hanh Cervantes ALT [Catalytic activity/Vol] 45 U/L Normal 14-59 [facility] Comment on above: Performed By: #### A MY, CMP, LIPA #### [facility] [address] [address] [address] Hanh Cervantes Anion gap [Moles/Vol] 14.7 mmol/L Normal [facility] Comment on above: Performed By: #### A MY, CMP, LIPA #### [facility] [address] [address] [address] Hanh Cervantes AST [Catalytic activity/Vol] 24 U/L Normal 15-37 [facility] Comment on above: Performed By: #### A MY, CMP, LIPA #### [facility] [address] [address] [address] Hanh Cervantes Bilirubin [Mass/Vol] 0.6 mg/dL Normal 0.2-1.0 [facility] Comment on above: Performed By: #### A MY, CMP, LIPA #### [facility] [address] [address] [address] Hanh Cervantes Calcium [Mass/Vol] 9.4 mg/dL Normal 8.5-10.1 [facility] Comment on above: Performed By: #### A MY, CMP, LIPA #### [facility] [address] [address] [address] Hanh Cervantes Chloride [Moles/Vol] 100 mmol/L Normal 98-107 [facility] Comment on above: Performed By: #### A MY, CMP, LIPA #### [facility] [address] [address] [address] Hanh Cervantes CO2 [Moles/Vol] 25.9 mmol/L Normal 21.0-32.0 [facility] Comment on above: Performed By: #### A MY, CMP, LIPA #### [facility] [address] [place] [address] Dr. Hanh Cervantes Creatinine [Mass/Vol] 0.78 mg/dL Normal 0.55-1.02 [facility] Comment on above: Performed By: #### A MY, CMP, LIPA #### [facility] [address] [place] [address] Dr. Hanh Cervantes EGFR-AF ARMENIAN >60 Normal >=60 [facility] Comment on above: Performed By: #### A MY, CMP, LIPA #### [facility] [address] [place] [address] Dr. Hanh Cervantes EGFR-NON AF ARMENIAN >60 Normal >=60 [facility] Comment on above: Performed By: #### A MY, CMP, LIPA #### [facility] [address] [place] [address] Dr. Hanh Cervantes Globulin (S) [Mass/Vol] 4.3 g/dL Normal [facility] Comment on above: Performed By: #### A MY, CMP, LIPA #### [facility] [address] [place] [address] Dr. Hanh Cervantes Glucose [Mass/Vol] 117 mg/dL Critically high 74-[address] [facility] Comment on above: Performed By: #### A MY, CMP, LIPA #### [facility] [address] [place] [address] Dr. Hanh Cervantes Potassium [Moles/Vol] 3.6 mmol/L Normal 3.5-5.1 [facility] Comment on above: Performed By: #### A MY, CMP, LIPA #### [facility] [address] [address] [address] Hanh Cervantes Protein [Mass/Vol] 8.9 g/dL Critically high 6.4-8.2 [facility] Comment on above: Performed By: #### A MY, CMP, LIPA #### [facility] [address] [address] [address] Hanh Cervantes Sodium [Moles/Vol] 137 mmol/L Normal 136-145 [facility] Comment on above: Performed By: #### A MY, CMP, LIPA #### [facility] [address] [place] [address] Dr. Hanh Cervantes Urea nitrogen [Mass/Vol] 9.0 mg/dL Normal 7.0-18.0 [facility] Comment on above: Performed By: #### A MY, CMP, LIPA #### [facility] [address] [place] [address] Dr. Hanh Cervantes Urea nitrogen/Creatinine [Mass ratio] 11.5 mg/mg Normal [facility] Comment on above: Performed By: #### A MY, CMP, LIPA #### [facility] [address] [place] [address] Dr. Hanh Cervantes Vital Signs Date Time Vital Sign Value Performing Clinician Facility 06-20-2025 11:40-0400 Diastolic blood pressure 116 mm[Hg] Muhamid Hugo ND Work Phone: [facility] 06-20-2025 11:40-0400 Systolic blood pressure 168 mm[Hg] Muhamid Hugo ND Work Phone: [facility] 06-20-2025 11:34-0400 [facility] Work [facility] 06-20-2025 11:34-0400 Body mass index (BMI) [Ratio] 35.43 kg/m2 Muhamid Hugo ND [facility] 06-20-2025 11:34-0400 Body temperature 98.2 [degF] Muhamid Hugo ND [facility] 06-20-2025 11:34-0400 Body weight 90.72 kg Muhamid Hugo ND Work Phone: [facility] 06-20-2025 11:34-0400 Heart rate 82 /min Muhamid Hugo ND Work [facility] 06-20-2025 11:34-0400 Respiratory rate 20 /min Muhamid Hugo ND Work [facility] 06-20-2025 11:34-0400 SaO2% (BldA) [Mass fraction] 98 % Muhamid Hugo ND Work Phone: [facility] [employer] 05-13-2025 17:45-0400 Diastolic blood pressure 78 mm[Hg] Muhamid Hugo ND Work Phone: [facility] [employer] 05-13-2025 17:45-0400 Heart rate 70 /min Muhamid Hugo ND Work Phone: [facility] 05-13-2025 17:45-0400 Respiratory rate 16 /min Muhamid Hugo ND Work [facility] 05-13-2025 17:45-0400 SaO2% (BldA) [Mass fraction] 96 % Muhamid Hugo ND Work Phone: [facility] [employer] 05-13-2025 17:45-0400 Systolic blood pressure 120 mm[Hg] Muhamid Hugo ND Work Phone: [facility] [employer] 05-13-2025 14:53-0400 Body temperature 100.4 [degF] Muhamid Hugo ND Work Phone: [facility] [employer] 05-05-2025 10:47-0400 Body height 160 cm Sharon Lynch SHIP PAINTER HELPER-EDUCATIONAL TECHNOLOGY SPECIALIST Work Phone: [facility] 05-05-2025 10:47-0400 Body mass index (BMI) [Ratio] 34.52 kg/m2 Sharon Lynch SHIP PAINTER HELPER-EDUCATIONAL TECHNOLOGY SPECIALIST Work Phone: [facility] 05-05-2025 10:47-0400 Body temperature 97.59 [degF] Sharon Lynch SHIP PAINTER HELPER-EDUCATIONAL TECHNOLOGY SPECIALIST Work Phone: [facility] 05-05-2025 10:47-0400 Body weight 88.36 kg Sharon Lynch SHIP PAINTER HELPER-EDUCATIONAL TECHNOLOGY SPECIALIST Work Phone: [facility] 05-05-2025 10:47-0400 Diastolic blood pressure 70 mm[Hg] Sharon Lynch SHIP PAINTER HELPER-EDUCATIONAL TECHNOLOGY SPECIALIST Work Phone: [facility] 05-05-2025 10:47-0400 Heart rate 76 /min Sharon Lynch SHIP PAINTER HELPER-EDUCATIONAL TECHNOLOGY SPECIALIST Work Phone: [facility] 05-05-2025 10:47-0400 SaO2% (BldA) [Mass fraction] 98 % Sharon Lynch APRN-EDUCATIONAL TECHNOLOGY SPECIALIST Work Phone: [facility] 05-05-2025 10:47-0400 Systolic blood pressure 114 mm[Hg] Sharon Lynch APRN-EDUCATIONAL TECHNOLOGY SPECIALIST Work Phone: [facility] 04-28-2025 13:39-0400 Body height 160 cm Bryant Hines PA-C Work Phone: [facility] 04-28-2025 13:39-0400 Body mass index (BMI) [Ratio] 34.54 kg/m2 Bryant Hines PA-C Work Phone: [facility] 04-28-2025 13:39-0400 Body weight 88.45 kg Bryant Hines PA-C Work Phone: [facility] 04-28-2025 13:39-0400 Diastolic blood pressure 88 mm[Hg] Bryant Hines PA-C Work Phone: [facility] 04-28-2025 13:39-0400 Heart rate 72 /min Bryant Hines PA-C Work Phone: [facility] 04-28-2025 13:39-0400 Systolic blood pressure 125 mm[Hg] Bryant Hines PA-C Work Phone: [facility] 04-26-2025 16:00-0400 Diastolic blood pressure 70 mm[Hg] Nancy Barnard MD Work Phone: [employer] 04-26-2025 16:00-0400 Heart rate 87 /min Nancy Barnard MD Work Phone: [employer] 04-26-2025 16:00-0400 Respiratory rate 17 /min Nancy Barnard MD Work Phone: [employer] 04-26-2025 16:00-0400 Systolic blood pressure 119 mm[Hg] Nancy Barnard MD Work Phone: [employer] 04-26-2025 09:01-0400 Body temperature 97.59 [degF] Nancy Barnard MD Work Phone: [employer] 04-26-2025 08:46-0400 SaO2% (BldA) [Mass fraction] 97 % Nancy Barnard MD Work Phone: [employer] 04-25-2025 16:37-0400 Body height 160 cm Nancy Barnard MD Work Phone: [employer] 04-25-2025 16:37-0400 Body mass index (BMI) [Ratio] 32.57 kg/m2 Nancy Barnard MD Work Phone: [employer] 04-25-2025 16:37-0400 Body weight 83.4 kg Nancy Barnard MD Work Phone: [facility] 03-15-2025 10:27-0400 Body height 160 cm Bryant Hines PA-C Work Phone: [facility] [employer] 03-15-2025 10:27-0400 Body mass index (BMI) [Ratio] 34.54 kg/m2 Bryant Hines PA-C Work Phone: [facility] [facility] 03-15-2025 10:27-0400 Body weight 88.45 kg Bryant Hines PA-C Work Phone: [facility] [facility] 03-15-2025 10:27-0400 Diastolic blood pressure 81 mm[Hg] Bryant Hines PA-C Work Phone: [facility] [facility] 03-15-2025 10:27-0400 Heart rate 77 /min Bryant Hines PA-C Work Phone: [facility] [facility] 03-15-2025 10:27-0400 Systolic blood pressure 118 mm[Hg] Bryant Hines PA-C Work Phone: [facility] [facility] 12-21-2024 10:35-0400 Body height 162.6 cm Bryant Hines PA-C Work Phone: [facility] [facility] 12-21-2024 10:35-0400 Body mass index (BMI) [Ratio] 34.31 kg/m2 Bryant Hines PA-C Work Phone: [facility] 12-21-2024 10:35-0400 Body weight 90.72 kg Bryant Hines PA-C Work Phone: [facility] 12-21-2024 10:35-0400 Diastolic blood pressure 76 mm[Hg] Bryant Hines PA-C Work Phone: [facility] 12-21-2024 10:35-0400 Heart rate 71 /min Bryant Hines PA-C Work Phone: [facility] 12-21-2024 10:35-0400 Systolic blood pressure 110 mm[Hg] Bryant Hines PA-C Work Phone: [facility] 11-22-2024 11:02-0500 Body height 162.6 cm Janay Mustafa SHIP PAINTER HELPER-EDUCATIONAL TECHNOLOGY SPECIALIST Work Phone: [facility] 11-22-2024 11:02-0500 Body mass index (BMI) [Ratio] 34.35 kg/m2 Janay Mustafa SHIP PAINTER HELPER-EDUCATIONAL TECHNOLOGY SPECIALIST Work Phone: [facility] 11-22-2024 11:02-0500 Body temperature 98.6 [degF] Janay Mustafa SHIP PAINTER HELPER-EDUCATIONAL TECHNOLOGY SPECIALIST Work Phone: [facility] 11-22-2024 11:02-0500 Body weight 90.81 kg Janay Mustafa SHIP PAINTER HELPER-EDUCATIONAL TECHNOLOGY SPECIALIST Work Phone: [facility] 11-22-2024 11:02-0500 Diastolic blood pressure 76 mm[Hg] Janay Mustafa SHIP PAINTER HELPER-EDUCATIONAL TECHNOLOGY SPECIALIST Work Phone: [facility] 11-22-2024 11:02-0500 Heart rate 66 /min Janay Mustafa SHIP PAINTER HELPER-EDUCATIONAL TECHNOLOGY SPECIALIST Work Phone: [facility] 11-22-2024 11:02-0500 SaO2% (BldA) [Mass fraction] 99 % Janay Mustafa SHIP PAINTER HELPER-EDUCATIONAL TECHNOLOGY SPECIALIST Work Phone: [facility] 11-22-2024 11:02-0500 Systolic blood pressure 122 mm[Hg] Janay Mustafa APRN-EDUCATIONAL TECHNOLOGY SPECIALIST Work Phone: [facility] 11-12-2024 11:46-0500 Body temperature 98.2 [degF] Oliverio Dennis MD Work Phone: [facility] 11-12-2024 11:46-0500 Diastolic blood pressure 50 mm[Hg] Oliverio Dennis MD Work Phone: [facility] 11-12-2024 11:46-0500 Heart rate 57 /min Oliverio Dennis MD Work Phone: [facility] 11-12-2024 11:46-0500 Respiratory rate 16 /min Oliverio Dennis MD Work Phone: [facility] 11-12-2024 11:46-0500 Systolic blood pressure 112 mm[Hg] Oliverio Dennis MD Work Phone: [phone] [place] [address] 11-12-2024 09:06-0500 SaO2% (BldA) [Mass fraction] 99 % Oliverio Dennis MD Work Phone: [phone] [place] [address] 11-10-2024 05:00-0500 Body mass index (BMI) [Ratio] 34.95 kg/m2 Oliverio Dennis MD Work Phone: [phone] [place] [address] 11-10-2024 05:00-0500 Body weight 92.4 kg Oliverio Dennis MD Work Phone: [phone](060)[phone] [place] [address] 11-07-2024 04:00-0500 Body height 162.6 cm Oliverio Dennis MD Work Phone: [facility] 11-05-2024 09:29-0500 Body temperature 98.6 [degF] Oliverio Dennis MD Work Phone: [phone] [place] [address] 11-05-2024 09:29-0500 SaO2% (BldA) [Mass fraction] 65 % Oliverio Dennis MD Work Phone: [phone] [place] [address] 11-05-2024 09:29-0500 SaO2% (BldA) [Mass fraction] 96 % Oliverio Dennis MD Work Phone: [phone])[phone] [place] [address] 11-05-2024 09:26-0500 SaO2% (BldA) [Mass fraction] 96 % [facility] Comment on above: Performed By: #### ABG ####[facility] ([id number] [place] [address] 07-12-2024 15:50-0400 Body height 162.6 cm Megha Bragg MD Work Phone: [facility] 07-12-2024 15:50-0400 Body mass index (BMI) [Ratio] 30.9 kg/m2 Megha Bragg MD Work Phone: [facility] 07-12-2024 15:50-0400 Body weight 81.65 kg Megha Bragg MD Work Phone: [facility] 07-12-2024 15:50-0400 Diastolic blood pressure 70 mm[Hg] Megha Bragg MD Work Phone: [facility] 07-12-2024 15:50-0400 Systolic blood pressure 112 mm[Hg] Megha Bragg MD Work Phone: [facility] 04-22-2024 07:30-0400 Body temperature 97.9 [degF] MD Ottoniel Arias Work Phone: [facility] 04-22-2024 07:30-0400 Diastolic blood pressure 98 mm[Hg] MD Ottoniel Arias Work Phone: [facility] 04-22-2024 07:30-0400 Heart rate 85 /min MD Ottoniel Arias Work Phone: [facility] 04-22-2024 07:30-0400 Respiratory rate 18 /min MD Ottoniel Arias Work Phone: [facility] 04-22-2024 07:30-0400 SaO2% (BldA) [Mass fraction] 99 % MD Ottoniel Arias Work Phone: [facility] 04-22-2024 07:30-0400 Systolic blood pressure 164 mm[Hg] MD Ottoniel Arias Work Phone: [facility] 04-19-2024 14:12-0400 Body height 160.02 cm MD Ottoniel Arias Work Phone: [facility] 04-18-2024 08:11-0400 Body weight 74.84 kg MD Ottoniel Arias Work Phone: [facility] 01-29-2024 13:23-0400 Body height 162.6 cm Megha Bragg MD Work Phone: [employer] 01-29-2024 13:23-0400 Body mass index (BMI) [Ratio] 28.32 kg/m2 Megha Bragg MD Work Phone: [employer] 01-29-2024 13:23-0400 Body weight 74.84 kg Megha Bragg MD Work Phone: [employer] 01-29-2024 13:23-0400 Diastolic blood pressure 73 mm[Hg] Megha Bragg MD Work Phone: [employer] 01-29-2024 13:23-0400 Heart rate 106 /min Megha Bragg MD Work Phone: [employer] 01-29-2024 13:23-0400 Systolic blood pressure 138 mm[Hg] Megha Bragg MD Work Phone: [employer] 07-22-2023 16:40-0400 Body height 160.02 cm Barb Woodard Other [employer] Other 07-22-2023 16:40-0400 Body mass index (BMI) [Ratio] 27.99 kg/m2 Barb Woodard Other [employer] Other 07-22-2023 16:40-0400 Body temperature 99.7 [degF] Barb Woodard Other [employer] Other 07-22-2023 16:40-0400 Body weight 71.67 kg Barb Woodard Other [employer] Other 07-22-2023 16:40-0400 Diastolic blood pressure 83 mm[Hg] Barb Woodard Other [employer] Other 07-22-2023 16:40-0400 Respiratory rate 18 /min Barb Woodard Other [employer] Other 07-22-2023 16:40-0400 SaO2% (BldA) [Mass fraction] 99 % Barb Woodard Other [employer] Other 07-22-2023 16:40-0400 Systolic blood pressure 119 mm[Hg] Barb Woodard Other [employer] Other Encounters Encounter Date Encounter Type Care Provider Facility Start: 06-22-2025 End: 06-22-2025 Emergency department patient visit Facility:[facility] Start: 06-20-2025 End: 06-20-2025 Emergency department patient visit [facility] Comment on above: Cannabis 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); Positive test Start: 06-19-2025 End: 06-19-2025 Emergency department patient visit [facility] Start: 05-30-2025 ambulatory Donavon Patrick acility:[facility] Start: 05-26-2025 End: 05-26-2025 Follow-up encounter Lacy Sanches CNA [facility] Comment on above: Basic Metabolic Pane l Start: 05-19-2025 ambulatory [facility] Start: 05-13-2025 End: 05-13-2025 Emergency department patient visit [facility] Comment on above: Cannabis 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) Start: 05-05-2025 End: 05-05-2025 ambulatory [facility] Start: 05-05-2025 End: 05-05-2025 Transitional care manage srvc 14 day discharge Sharon Lynch SHIP PAINTER HELPER-EDUCATIONAL TECHNOLOGY SPECIALIST Work Phone: [facility] Comment on above: Nausea and vomiting, unspecified vomiting type (Primary Dx); Hypokalemia; RAKESH (acute kidney injury); Seizure disorder (CMS-HCC); Hospital discharge follow-up Start: 04-28-2025 End: 04-28-2025 Office outpatient visit 15 minutes Bryant Hines PA-C Work Phone: [facility] [place] Comment on above: Seizure disorder (CM S-HCC) (Primary Dx); Breakthrough seizure (CMS-HCC); Cannabinoid hyperemesis syndrome Start: 04-28-2025 End: 04-28-2025 ambulatory [facility] Start: 04-25-2025 End: 04-26-2025 [facility] Start: 04-25-2025 End: 04-26-2025 Evaluation and management of inpatient Nancy Barnard MD Work Phone: [facility] ICU Comment on above: Nausea and vomiting, unspecified vomiting type (Primary Dx); Cannabinoid hyperemesis syndrome; Hypokalemia; Dehydration Start: 03-23-2025 ambulatory [facility] Start: 03-15-2025 End: 03-15-2025 Office outpatient visit 25 minutes Bryant Hines PA-C Work Phone: [facility] [place] Comment on above: Seizure disorder (CM S-HCC) (Primary Dx); Breakthrough seizure (CMS-HCC) Start: 03-15-2025 End: 03-15-2025 ambulatory [facility] Start: 03-01-2025 End: 03-02-2025 Emergency department patient visit [facility] Start: 02-23-2025 End: 02-23-2025 Emergency department patient visit [facility] Start: 12-21-2024 End: 12-21-2024 Office outpatient visit 15 minutes Megha Bragg MD Work Phone: [facility] [place] Comment on above: Seizure disorder (CM S-HCC) (Primary Dx) Start: 12-21-2024 End: 12-21-2024 ambulatory [facility] Start: 12-06-2024 End: 12-06-2024 Telephone encounter Vashti Loomis [facility] Comment on above: 12/20/24 MAHSAJAGUAR NAIK Start: 11-23-2024 End: 11-23-2024 ambulatory OTTONIEL Schulz [facility] Start: 11-22-2024 End: 11-22-2024 Telephone encounter Satnam Anderson CMA [facility] Start: 11-22-2024 End: 11-22-2024 Transitional care manage srvc 14 day discharge Janay Mustafa SHIP PAINTER HELPER-EDUCATIONAL TECHNOLOGY SPECIALIST Work Phone: [facility] Comment on above: Seizure disorder (CM S-HCC) (Primary Dx); Focal epilepsy (CMS-HCC); Acute kidney injury (CMS-HCC); Eczema of right hand Start: 11-22-2024 End: 11-22-2024 ambulatory [facility] Start: 11-15-2024 End: 11-22-2024 Orders Only Janay Mustafa SHIP PAINTER HELPER-EDUCATIONAL TECHNOLOGY SPECIALIST Work Phone: [facility] Comment on above: Seizure disorder (CM S-HCC) (Primary Dx) Transition Of Care Start: 11-08-2024 End: 11-08-2024 ambulatory [facility] Start: 11-05-2024 End: 11-12-2024 Evaluation and management of inpatient Marie Singh Work Phone: [facility] 9 Acute Start: 11-04-2024 End: 11-05-2024 Emergency department patient visit OTTONIEL Schulz [facility] Start: 11-02-2024 End: 11-04-2024 Telephone encounter [facility]lamas [facility] Comment on above: levETIRAcetam (KEPPR A) 750 mg tablet Start: 09-14-2024 End: 09-14-2024 Evaluation and management of inpatient [facility] Start: 09-14-2024 End: 09-14-2024 Evaluation and management of inpatient [facility] Start: 09-13-2024 End: 09-14-2024 Evaluation and management of inpatient [facility] Start: 09-12-2024 End: 09-13-2024 ambulatory MEGHA BRAGG [facility] Start: 09-12-2024 End: 09-14-2024 Evaluation and management of inpatient JES RAMOS [facility] Start: 07-12-2024 End: 07-12-2024 Office outpatient visit 25 minutes Megha Bragg MD Work Phone: [facility] Comment on above: Breakthrough seizure ([facility]) (Primary Dx); Gastroesophageal reflux disease, unspecified whether esophagitis present; Seizure disorder ([facility]-HCC); Eczema, unspecified type; Anxiety; Depression, unspecified depression type Start: 07-12-2024 End: 07-12-2024 ambulatory OTTONIEL ARIAS [facility] Start: 07-01-2024 End: 07-01-2024 Documentation procedure Kalin Mccann RN [facility] Start: 04-20-2024 Non-patient / Non-visit MD Emeka Arias Work Phone: [facility] Work Phone: Start: 04-17-2024 End: 04-22-2024 Evaluation and management of inpatient MD Ottoniel Arias Work Phone: [facility] Work Phone: Start: 03-20-2024 End: 03-22-2024 Refill Ottoniel Arias MD Work Phone: [facility] Comment on above: Anxiety Start: 02-08-2024 End: 02-08-2024 Refill Ottoniel Arias MD Work Phone: [facility] Comment on above: Anxiety Start: 02-02-2024 End: 02-02-2024 ambulatory CELINA KEITH Not Available Start: 01-29-2024 End: 01-29-2024 Office outpatient new 45 minutes Samantha Keyes SHIP PAINTER HELPER-EDUCATIONAL TECHNOLOGY SPECIALIST Work Phone: [facility] Comment on above: Seizure disorder (CM S-HCC) (Primary Dx); Witnessed seizure-like activity (CMS-HCC); Anxiety; Gastroesophageal reflux disease, unspecified whether esophagitis present; Depression, unspecified depression type; Eczema, unspecified type Start: 01-07-2024 Orders Only Ottoniel Arias MD Work Phone: [facility] Comment on above: Seizure (CMS-HCC) (P rimary Dx); Muscle cramp Start: 01-06-2024 Emergency department patient visit [facility] Start: 01-06-2024 End: 01-06-2024 Emergency department patient visit [facility] Start: 12-28-2023 Telephone encounter Kathrin Harris [facility] Comment on above: New Patient Appt. Start: 11-24-2023 End: 11-24-2023 Office outpatient visit 25 minutes Ottoniel Arias MD Work Phone: [facility] Comment on above: Anxiety (Primary Dx) ; Depression, unspecified depression type Start: 10-26-2023 End: 10-26-2023 ambulatory CELINA KEITH Not Available Start: 10-08-2023 End: 10-08-2023 Office outpatient visit 15 minutes Ottoniel Arias MD Work Phone: [facility] Comment on above: Generalized anxiety disorder Start: 08-31-2023 End: 08-31-2023 ambulatory CELINA KEITH Not Available Start: 07-22-2023 End: 07-22-2023 ambulatory Barb Woodard Other [facility] Other Start: 07-22-2023 Office outpatient vi sit 15 minutes Barb Woodard [facility] Start: 09-25-2022 End: 09-25-[address] NONE LISTED REQUEST Facility: Procedures Date Procedure Procedure Detail Performing Clinician Start: 06-20-2025 Us preg uterus real time w/image dcmtn transvag Jocelyn De Guzman SHIP PAINTER HELPER - EDUCATIONAL TECHNOLOGY SPECIALIST Work Phone: Start: 06-20-2025 Drug tst prsmv instr mnt chem analyzers pr date Jocelyn De Guzman SHIP PAINTER HELPER - EDUCATIONAL TECHNOLOGY SPECIALIST Work Phone: Start: 06-20-2025 Urnls dip stick/tabl et reagent auto microscopy Nancy Barnard MD Work Phone: Start: 06-20-2025 End: 06-20-2025 Comprehensive metabolic panel Nancy Barnard MD Work Phone: Start: 05-13-2025 Drug tst prsmv instr mnt chem analyzers pr date You Zarco PA-C Work Phone: Start: 05-13-2025 Urnls dip stick/tabl et reagent auto microscopy You [employer] PA-C Work Phone: Start: 05-13-2025 Basic metabolic pane l calcium total You [employer] PA-C Work Phone: Start: 05-05-2025 Adult depression scr eening assessment Sharon Lynch SHIP PAINTER HELPER-EDUCATIONAL TECHNOLOGY SPECIALIST Work Phone: Start: 04-26-2025 Rhythm ecg 1-3 leads w/interpretation & report Unknown Provider Result Start: 04-26-2025 End: 04-26-2025 Assay of magnesium Jocelyn De Guzman APR N - EDUCATIONAL TECHNOLOGY SPECIALIST Work Phone: Start: 04-26-2025 BASIC METABOLIC PANE L W/ REFLEX TO MG FOR LOW K Jocelyn De Guzman SHIP PAINTER HELPER - EDUCATIONAL TECHNOLOGY SPECIALIST Work Phone: Start: 04-25-2025 Urinalysis microscopic only Esau Tejada PA-C Work Phone: Start: 04-25-2025 Urnls dip stick/tabl et rgnt auto w/o microscopy Esau Tejada PA-C Work Phone: Start: 04-25-2025 Ct abdomen & pelvis w/contrast material Esau Tejada PA-C Work Phone: Start: 04-25-2025 Comprehensive metabo lic panel Esau Tejada PA-C Work Phone: Start: 04-25-2025 End: 04-26-2025 Ecg routine ecg w/least 12 lds i&r only Easu Tejada PA-C Work Phone: Start: 11-22-2024 Follow-up visit Follow-up JANAY MUSTAFA Start: 11-22-2024 Adult depression scr eening assessment Nicole Cheng RN Start: 11-12-2024 Comprehensive metabo lic panel Oliverio Dennis MD Work Phone: Start: 11-11-2024 Radiologic exam ches t single view Oliverio Dennis MD Work Phone: Start: 11-11-2024 HC INFECTIOUS DISEAS E RESP, DNA/RNA, 22 TARGETS INCLUDING SARSCOV2 Oliverio Dennis MD Work Phone: Start: 11-11-2024 Comprehensive metabo lic panel Oliverio Dennis MD Work Phone: Start: 11-10-2024 Ecg routine ecg w/le ast 12 lds trcg only w/o i&r Brittany Jiang PA-C Work Phone: Start: 11-10-2024 Comprehensive metabo lic panel Oliverio Dennis MD Work Phone: Start: 11-09-2024 Potassium serum plasma/whole blood Marjorie Curiel MD Work Phone: Start: 11-09-2024 Comprehensive metabo lic panel Oliverio Dennis MD Work Phone: Start: 11-08-2024 Potassium serum plasma/whole blood Marjorie Curiel MD Work Phone: Start: 11-08-2024 End: 11-08-2024 Gluc bld gluc mntr dev cleared fda spec home use Marie Singh DO Work Phone: Start: 11-08-2024 Cyanocobalamin vitamin b-12 Marjorie Curiel MD Work Phone: Start: 11-08-2024 Calcium ionized Carlos pher Tawannary SHIP PAINTER HELPER-EDUCATIONAL TECHNOLOGY SPECIALIST Work Phone: Start: 11-08-2024 Basic metabolic pane l calcium total Marjorie Curiel MD Work Phone: Start: 11-08-2024 Potassium serum plasma/whole blood Marjorie Curiel MD Work Phone: Start: 11-07-2024 Gluc bld gluc mntr d ev cleared fda spec home use Marie Singh DO Work Phone: Start: 11-07-2024 End: 11-07-2024 Potassium serum plasma/whole blood Marjorie Curiel MD Work Phone: Start: 11-07-2024 Creatine kinase total A zuleyma Ramsey MD Work Phone: Start: 11-07-2024 End: 11-07-2024 Creatine kinase total Marjorie Curiel MD Work Phone: Start: 11-07-2024 HC ANTINEUTROPHIL CYTOPLASMIC ANTB SCREEN EA ANTB Renanadolfo Tawannarosa isela SHIP PAINTER HELPER-EDUCATIONAL TECHNOLOGY SPECIALIST Work Phone: Start: 11-07-2024 HC IMMUNOGLOBULIN LI GHT CHAINS FREE EACH Arvind Tawannarosa isela SHIP PAINTER HELPER-EDUCATIONAL TECHNOLOGY SPECIALIST Work Phone: Start: 11-07-2024 Comprehensive metabo lic panel Richard Prielipp SHIP PAINTER HELPER-EDUCATIONAL TECHNOLOGY SPECIALIST Work Phone: Start: 11-06-2024 DISCONTINUE IN PROCE SS EEG TESTING Sol Ramos MD Work Phone: Start: 11-06-2024 EEG VIDEO MONITORING Ra maurice Mooney MD Work Phone: Start: 11-06-2024 End: 11-06-2024 Iadna-dna/rna gi pthgn multiplex probe tq 12-25 Arvind Blanc SHIP PAINTER HELPER-EDUCATIONAL TECHNOLOGY SPECIALIST Work Phone: Start: 11-06-2024 Inf agent det nuclei c acid clostridium amp probe Deangelo Merrill MD Work Phone: Start: 11-06-2024 End: 11-06-2024 Comprehensive metabolic panel Richard Prielipp SHIP PAINTER HELPER-EDUCATIONAL TECHNOLOGY SPECIALIST Work Phone: Start: 11-06-2024 Urnls dip stick/tabl et rgnt auto w/o microscopy Marie Singh DO Work Phone: Start: 11-06-2024 Antinuclear antibodies raul Marie Singh DO Work Phone: Start: 11-06-2024 Iaad ia hiv-1 ag w/h iv-1 & hiv-2 antbdy single Marie Singh DO Work Phone: Start: 11-06-2024 EEG VIDEO MONITORING IN PROGRESS Nathalie Mooney MD Work Phone: Start: 11-05-2024 End: 11-05-2024 Calcium ionized Richard Prielipp SHIP PAINTER HELPER-C OUTSOLE SCHEDULER Work Phone: Start: 11-05-2024 Gluc bld gluc mntr d ev cleared fda spec home use Marie Singh DO Work Phone: Start: 11-05-2024 Basic metabolic pane l calcium total Richard Prielipp SHIP PAINTER HELPER-EDUCATIONAL TECHNOLOGY SPECIALIST Work Phone: Start: 11-05-2024 Drug screen quantita tive vancomycin Richard Prielipp SHIP PAINTER HELPER-EDUCATIONAL TECHNOLOGY SPECIALIST Work Phone: Start: 11-05-2024 Gluc bld gluc mntr d ev cleared fda spec home use Marie Singh DO Work Phone: Start: 11-05-2024 Creatine kinase total E van Prielipp SHIP PAINTER HELPER-EDUCATIONAL TECHNOLOGY SPECIALIST Work Phone: Start: 11-05-2024 Blood gases any comb ination ph pco2 po2 co2 hco3 Marie Schulz Francisco DO Work Phone: Start: 11-05-2024 EEG VIDEO MONITORING IN PROGRESS Nathalie Mooney MD Work Phone: Start: 11-05-2024 EEG Nathalie brown MD Work Phone: Start: 11-05-2024 Prothrombin time Nathalie Mooney MD Work Phone: Start: 11-05-2024 Drug screen quantita tive vancomycin Richard Ernandez SHIP PAINTER [employer]Dental [employer] Work Phone: Start: 11-05-2024 End: 11-05-2024 Iaadiadoo not otherwise specified Richard Ernandez SHIP PAINTER HELPER-EDUCATIONAL TECHNOLOGY SPECIALIST Work Phone: Start: 11-05-2024 Adult depression scr eening assessment Janay Mustafa SHIP PAINTER HELPERWentworth [facility]FR[facility] Work Phone: Start: 11-05-2024 End: 11-05-2024 Comprehensive metabolic panel Richard Ernandez SHIP PAINTER HELPERWentworth TechnologyEDUCATIONAL TECHNOLOGY SPECIALIST Work Phone: Start: 11-05-2024 HC INFECTIOUS DISEAS E RESP, DNA/RNA, 22 TARGETS INCLUDING SARSCOV2 Richard Ernandez SHIP PAINTER HELPERWentworth TechnologyEDUCATIONAL TECHNOLOGY SPECIALIST Work Phone: Start: 09-12-2024 Adult depression scr eening assessment Cherry Llamas Start: 07-12-2024 Follow-up visit Follow-up MEGHA PAGAN Start: 11-24-2023 Adult depression scr eening assessment Ottoniel Arias MD Work Phone: Start: 10-02-2022 Adult depression scr eening assessment Ottoniel Arias MD Work Phone: Plan of Treatment Date Care Activity Detail Author Start: 05-18-2027 DTaP,Tdap and Td Vaccines (8 - Td or Tdap) DTaP,Tdap and Td Vaccines (8 - Td or Tdap) [facility] Start: 05-18-2027 DTaP/Tdap/Td vaccine (8 - Td or Tdap) DTaP/Tdap/Td vaccine (8 - Td or Tdap) [facility] Start: 05-07-2026 Tobacco Screening Tobacco Screening [facility] Start: 05-05-2026 Adult BMI Screening Adult BMI Screen ing [facility] Start: 05-05-2026 Depression Screening Depression Scre ening [facility] Start: 05-05-2026 Tobacco Screening Tobacco Screening [facility] Start: 04-28-2026 Adult BMI Screening Adult BMI Screen ing [facility] Start: 04-28-2026 Tobacco Screening Tobacco Screening [facility] Start: 03-15-2026 Adult BMI Screening Adult BMI Screen ing [facility] Start: 03-15-2026 Tobacco Screening Tobacco Screening [facility] Start: 12-21-2025 Adult BMI Screening Adult BMI Screen ing [facility] Start: 12-21-2025 Tobacco Screening Tobacco Screening [facility] Start: 11-22-2025 Adult BMI Screening Adult BMI Screen ing [facility] Start: 11-22-2025 Depression Screening Depression Scre ening [facility] Start: 11-22-2025 Tobacco Screening Tobacco Screening [facility] Start: 11-10-2025 Adult BMI Screening Adult BMI Screen ing [facility] Start: 11-07-2025 End: 11-07-2025 Patient encounter procedure 11/07/2025 9:30 AM EST [facility] [address] [place] [address] Ottoniel Arias MD [address], [place] [address] [facility] Start: 11-05-2025 Depression Screening Depression Scre ening [facility] Start: 11-05-2025 Tobacco Screening Tobacco Screening [facility] Start: 09-12-2025 Depression Screening Depression Scre ening [facility] Start: 09-12-2025 Tobacco Screening Tobacco Screening [facility] Start: 07-18-2025 End: 07-18-2025 Patient encounter procedure 07/18/2025 10:00 AM EDT Office Visit [facility] [place] [phone] Bryant Hines, PAAlmaC [address], [address] [place] [phone] [facility] [place] Start: 07-13-2025 Tobacco Screening Tobacco Screening [facility] Start: 07-12-2025 Adult BMI Follow Up Plan Adult BMI Follow Up Plan [facility] Start: 07-12-2025 Adult BMI Screening Adult BMI Screen ing [facility] Start: 07-12-2025 Tobacco Screening Tobacco Screening [facility] Start: 06-05-2025 COVID-19 Vaccine ( season) COVID-19 Vaccine ( season) [facility] Start: 06-05-2025 Influenza vaccination Influenza Vacc ine [facility] Start: 05-19-2025 End: 05-05-2026 Basic metabolic 2000 panel - Serum or Plasma Basic Metabolic Panel Lab Routine Hypokalemia RAKESH (acute kidney injury) Expected: 05/19/2025 (Approximate), Expires: 05/05/2026 [facility] Work Phone: Comment on above: Expected: 05/19/2025 (Approximate), Expires: 05/05/2026 Start: 05-05-2025 Influenza vaccination Flu vaccine (# 1) [facility] Start: 05-05-2025 End: 05-05-2025 Patient encounter procedure 05/05/2025 10:40 AM EDT Office Visit [facility] [address] [place] [address] Sharon Lynch APRN-EDUCATIONAL TECHNOLOGY SPECIALIST [address] [place] [phone] [facility] Start: 04-17-2025 Adult BMI Screening Adult BMI Screen ing [facility] Start: 04-17-2025 Tobacco Screening Tobacco Screening [facility] Start: 03-15-2025 End: 03-15-2025 ambulatory 03/15/2025 4:20 PM EDT Lab [facility] [address] [place] [address] [facility] [place] [facility] Start: 03-15-2025 End: 03-15-2025 Patient encounter procedure 03/15/2025 10:30 AM EDT Office Visit [facility] [place] [address] [place] [phone] Bryant Hines PA-C [address] [address] [place] [phone] [facility] [place] Start: 01-28-2025 Adult BMI Screening Adult BMI Screen ing [facility] Start: 01-28-2025 Tobacco Screening Tobacco Screening [facility] Start: 01-05-2025 Adult BMI Screening Adult BMI Screen ing [facility] Start: 01-05-2025 Tobacco Screening Tobacco Screening [facility] Start: 01-05-2025 End: 01-05-2025 Patient encounter procedure 01/05/2025 9:00 AM EDT Office Visit [facility] [address] [place] [phone] Ottoniel Arias MD [address] [place], [place] [phone] [facility] Start: 12-26-2024 Adult BMI Screening Adult BMI Screen ing [facility] Start: 12-26-2024 Tobacco Screening Tobacco Screening [facility] Start: 12-21-2024 End: 12-21-2024 Patient encounter procedure 12/21/2024 10:30 AM EDT Office Visit [facility] [place] [address] [facility] [place] [address] Megha Bragg MD [address] [facility] [place] [phone] Bryant Hines, RODERICK [address] [address] [address] [place] [phone] [facility] [place] Start: 12-20-2024 End: 12-20-2024 ambulatory [facility] [place] Start: 12-20-2024 End: 12-20-2024 [facility] Start: 11-24-2024 Depression Screening Depression Scre ening [facility] Start: 11-24-2024 Tobacco Screening Tobacco Screening [facility] Start: 11-22-2024 End: 11-22-2024 Patient encounter procedure 11/22/2024 11:00 AM EST [facility] [address] [place] [phone] Janay Mustafa, SHIP PAINTER HELPER-EDUCATIONAL TECHNOLOGY SPECIALIST [address] [place] [address] [facility] Start: 11-19-2024 End: 11-15-2025 Basic metabolic 2000 panel - Serum or Plasma Basic Metabolic Panel Lab Routine Seizure disorder ([facility]-H[facility]) Expected: 11/19/2024 (Approximate), Expires: 11/15/2025 [facility] Work Phone: Comment on above: Expected: 11/19/2024 (Approximate), Expires: 11/15/2025 Start: 11-19-2024 End: 11-15-2025 CK Total CK Total Lab Routine Seizure disorder ([facility]) Expected: 11/19/2024, Expires: 11/15/2025 [facility] Comment on above: Expected: 11/19/2024 , Expires: 11/15/2025 Start: 09-09-2024 Tobacco Screening Tobacco Screening [facility] Start: 08-25-2024 Adult BMI Screening Adult BMI Screen ing [facility] Start: 07-12-2024 End: 07-12-2024 Patient encounter procedure 07/12/2024 4:00 PM EDT Office Visit [facility] [address] [facility] [place] [address] Megha Bragg MD [address] [place] [address], [address] [place] [phone] [facility] Neurology Start: 06-24-2024 End: 06-24-2024 Patient encounter procedure 06/24/2024 2:30 PM EDT Office Visit [facility] [address] [place] [phone] Megha Bragg MD [address] [place] [address], [address] [place] [phone] [facility] Start: 06-05-2024 COVID-19 Vaccine ( season) COVID-19 Vaccine ( season) [facility] Start: 06-05-2024 Influenza vaccination Influenza Vacc ine [facility] Start: 04-22-2024 [facility] Start: 04-17-2024 Hospital admission [facility] Start: 04-17-2024 [facility] Start: 03-18-2024 End: 03-18-2024 Patient encounter procedure 03/18/2024 1:15 PM EDT Office Visit [facility] [address] [place] [phone] Ottoniel Arias MD [address] [facility] [address] [place], [place] [phone] [facility] Start: 01-29-2024 End: 01-29-2024 Patient encounter procedure 01/29/2024 1:30 PM EDT Office Visit [facility] [address] [place] [facility] [address] Samantha Keyes, SHIP PAINTER HELPER-EDUCATIONAL TECHNOLOGY SPECIALIST [address] [place] [address] Megha Bragg MD [address] [place] [address], [address] [place] [address] [facility] Start: 01-07-2024 End: 01-06-2025 CBC W Auto Differential panel - Blood CBC auto differential Lab Routine Seizure ([facility]) Muscle cramp Expected: 01/07/2024 (Approximate), Expires: 01/06/2025 [employer] [facility] [employer] Work Phone: Comment on above: Expected: 01/07/2024 (Approximate), Expires: 01/06/2025 Start: 01-07-2024 End: 01-06-2025 Comprehensive metabolic 2000 panel - Serum or Plasma Comprehensive metabolic panel Lab Routine Seizure ([facility]) Muscle cramp Expected: 01/07/2024 (Approximate), Expires: 01/06/2025 [facility] Comment on above: Expected: 01/07/2024 (Approximate), Expires: 01/06/2025 Start: 01-07-2024 End: 01-06-2025 Magnesium [Mass/volume] in Serum or Plasma Magnesium Lab Routine Seizure (CMS-HCC) Muscle cramp Expected: 01/07/2024 (Approximate), Expires: 01/06/2025 [facility] Comment on above: Expected: 01/07/2024 (Approximate), Expires: 01/06/2025 Start: 01-07-2024 End: 01-06-2025 Phosphate [Mass/volume] in Serum or Plasma Phosphorus Lab Routine Seizure ([facility]) Muscle cramp Expected: 01/07/2024 (Approximate), Expires: 01/06/2025 [facility] [employer] Comment on above: Expected: 01/07/2024 (Approximate), Expires: 01/06/2025 Start: 01-07-2024 End: 01-06-2025 TSH with Reflex TSH with Reflex Lab Routine Seizure (CMS-HCC) Muscle cramp Expected: 01/07/2024 (Approximate), Expires: 01/06/2025 [facility] [employer] Comment on above: Expected: 01/07/2024 (Approximate), Expires: 01/06/2025 Start: 10-02-2023 Depression Screening Depression Scre ening [facility] Start: 06-05-2023 Influenza vaccination Influenza Vacc ine [facility] Start: 2021 Screening for malign ant neoplasm of cervix Pap Smear [facility] Start: 2019 Hepatitis B vaccine (1 of 3 - 19+ 3-dose series) Hepatitis B vaccine (1 of 3 - 19+ 3-dose series) [facility] Start: 2018 Adult BMI Follow Up Plan Adult BMI Follow Up Plan [facility] Start: 2018 Hepatitis C screening Hepatitis C sc reen [facility] Start: 2015 HIV screening HIV screen [facility] Start: 12-14-2012 Hepatitis A vaccine (2 of 2 - 2-dose series) Hepatitis A vaccine (2 of 2 - 2-dose series) [facility] Start: 12-14-2012 HPV vaccine (2 - 2-d ose series) HPV vaccine (2 - 2-dose series) [facility] Start: 2012 Depression Screen Depression Screen [facility] Start: 2004 Varicella vaccine (2 of 2 - 2-dose childhood series) Varicella vaccine (2 of 2 - 2-dose childhood series) [facility] Start: 2000 Screening for Chlamy yuli trachomatis Chlamydia Screening [facility] Start: 2000 Tobacco Counseling Tobacco Counselin g [facility] End: 03-15-2026 Basic metabolic 2000 panel - Serum or Plasma Basic Metabolic Panel Lab Routine Seizure disorder ([facility]) 1 Occurrences starting 03/15/2025 until 03/15/2026 [facility] Comment on above: 1 Occurrences starti ng 03/15/2025 until 03/15/2026 End: 04-28-2025 Basic Metabolic Panel w/ Reflex to MG Basic Metabolic Panel w/ Reflex to MG Lab Routine Daily for 3 Days starting 04/26/2025 until 04/28/2025, 1 completed [facility] [employer] Comment on above: Daily for 3 Days sta rting 04/26/2025 until 04/28/2025, 1 completed End: 01-06-2025 C-reactive protein C-reactive protein Lab Routine Seizure ([facility]) Muscle cramp 1 Occurrences starting 01/07/2024 until 01/06/2025 [employer] Comment on above: 1 Occurrences starti ng 01/07/2024 until 01/06/2025 End: 11-27-2024 CBC W Auto Differential panel - Blood [employer] End: 04-28-2025 CBC W Auto Differential panel - Blood CBC with Auto Differential Lab Routine Daily for 3 Days starting 04/26/2025 until 04/28/2025, 1 completed [employer] Comment on above: Daily for 3 Days sta rting 04/26/2025 until 04/28/2025, 1 completed End: 11-13-2024 CK Total [employer] End: 01-06-2025 CK Total CK Total Lab Routine Seizure ([facility]) Muscle cramp 1 Occurrences starting 01/07/2024 until 01/06/2025 [employer] Comment on above: 1 Occurrences starti ng 01/07/2024 until 01/06/2025 End: 11-29-2024 Comprehensive metabolic 2000 panel - Serum or Plasma [facility] Work Phone: End: 11-08-2024 Holter monitor study [facility] Work Phone: End: 07-12-2025 Holter monitor study [facility] Monitoring for Epilepsy / LTME 5 Day Neurology Routine Breakthrough seizure ([facility]) Seizure disorder ([facility]) 1 Occurrences starting 07/12/2024 until 07/12/2025 [facility] Work Phone: Comment on above: 1 Occurrences starti ng 07/12/2024 until 07/12/2025 Ionized calcium [facility] Work Phone: End: 01-06-2025 LDH LDH Lab Routine Seizure ([facility]) Muscle cramp 1 Occurrences starting 01/07/2024 until 01/06/2025 [employer] Comment on above: 1 Occurrences starti ng 01/07/2024 until 01/06/2025 End: 04-26-2025 Levetiracetam Level [employer] [facility] [employer] Comment on above: One Time for 1 Occur rences starting 04/26/2025 until 04/26/2025 End: 03-15-2026 Levetiracetam, S Levetiracetam, S Lab Routine Seizure disorder ([facility]) 1 Occurrences starting 03/15/2025 until 03/15/2026 [facility] Work Phone: Comment on above: 1 Occurrences starti ng 03/15/2025 until 03/15/2026 End: 11-27-2024 Magnesium [Mass/volume] in Serum or Plasma [facility] [employer] [facility] End: 11-13-2024 Myoglobin, serum [facility] [employer] Oxygen Therapy - Maintain SpO2: 90%; *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 for O2: Yes; Document: \[email or web address]\epi c\EPIC_Reference\Orders\ Respiratory Care Guidelines\CPG Oxygen 2022.pdf [employer] Work Phone: Oxygen therapy [[facility] Data Set] Initiate Oxygen Therapy Protocol Respiratory Care Routine As Needed until discontinued starting 04/25/2025 [facility] Comment on above: As Needed until disc ontinued starting 04/25/2025 Patient Education Depression, Ad ult (DC) [facility] DC Instructions Know your Meds [facility] Work Phone: Patient referral [facility] Work Phone: End: 11-27-2024 Phosphate [Mass/volume] in Serum or Plasma [facility] Work Phone: End: 11-09-2024 Potassium [Moles/volume] in Serum or Plasma [facility] [employer] [facility] End: 11-08-2024 Potassium [Moles/volume] in Serum or Plasma [facility] [employer] [facility] End: 01-06-2025 Prolactin level Prolactin level Lab Routine Seizure ([facility]) Muscle cramp 1 Occurrences starting 01/07/2024 until 01/06/2025 [employer] Comment on above: 1 Occurrences starti ng 01/07/2024 until 01/06/2025 Immunizations Immunization Date Immunization Notes Care Provider Shade milian 05-18-2017 meningococcal polysaccharide (groups A, C, Y and W-135) diphtheria toxoid conjugate vaccine (MCV4P) Ottoniel Arias MD Work Phone: [employer] 05-18-2017 tetanus toxoid, redu al diphtheria toxoid, and acellular pertussis vaccine, adsorbed Ottoniel Arias MD Work Phone: [facility] 06-16-2012 hepatitis A vaccine, pediatric/adolescent dosage, 2 dose schedule Ottoniel Arias MD Work Phone: [facility] 06-16-2012 human papilloma viru s vaccine, quadrivalent Ottoniel Arias MD Work Phone: [facility] 06-16-2012 tetanus toxoid, redu al diphtheria toxoid, and acellular pertussis vaccine, adsorbed Ottoniel Arias MD Work Phone: [facility] 05-08-2005 diphtheria, tetanus toxoids and acellular pertussis vaccine, unspecified formulation Ottoniel Arias MD Work Phone: [facility] 05-08-2005 measles, mumps and rubella virus vaccine Ottoniel Arias MD Work Phone: [facility] 05-08-2005 pneumococcal conjuga te vaccine, 7 valent Ottoniel Arias MD Work Phone: [facility] 05-08-2005 poliovirus vaccine, inactivated Ottoniel Arias MD Work Phone: [facility] 05-30-2003 varicella virus vaccine Kris Arias MD Work Phone: [facility] Work Phone: 04-14-2001 diphtheria, tetanus toxoids and acellular pertussis vaccine, unspecified formulation Ottoniel Arias MD Work Phone: [facility] 04-14-2001 haemophilus influenz ae type b vaccine, conjugate unspecified formulation Ottoniel Arias MD Work Phone: [facility] 04-14-2001 measles, mumps and rubella virus vaccine Ottoniel Arias MD Work Phone: [facility] 2000 diphtheria, tetanus toxoids and acellular pertussis vaccine, unspecified formulation Ottoniel Arias MD Work Phone: [facility] 2000 hepatitis B vaccine, pediatric or pediatric/adolescent dosage Ottoniel Arias MD Work Phone: [facility] 2000 poliovirus vaccine, inactivated Ottoniel Arias MD Work Phone: [facility] 2000 diphtheria, tetanus toxoids and acellular pertussis vaccine, unspecified formulation Ottoniel Arias MD Work Phone: [facility] 2000 haemophilus influenz ae type b vaccine, conjugate unspecified formulation Ottoniel Arias MD Work Phone: [facility] 2000 hepatitis B vaccine, pediatric or pediatric/adolescent dosage Ottoniel Arias MD Work Phone: [facility] 2000 poliovirus vaccine, inactivated Ottoniel Arias MD Work Phone: [facility] 2000 diphtheria, tetanus toxoids and acellular pertussis vaccine, unspecified formulation Ottoniel Arias MD Work Phone: [facility] 2000 haemophilus influenz ae type b vaccine, conjugate unspecified formulation Ottoniel Arias MD Work Phone: [facility] 2000 hepatitis B vaccine, pediatric or pediatric/adolescent dosage Ottoniel Arias MD Work Phone: [facility] 2000 poliovirus vaccine, unspecified formulation Ottoniel Arias MD Work Phone: [facility] 2000 hepatitis B vaccine, pediatric or pediatric/adolescent dosage Ottoniel Arias MD Work Phone: [facility] NEGATED: Highlighted row has not occurred!10-16-2022 Influenza Vaccine, Quadrivalent, Adjuvanted Ottoniel Arias MD Work Phone: [facility] Comment on above: Deferred: Patient de cision Payers Date Payer Category Payer Managed Care Other (unspecified) [id number] 2022 Private Health Insurance [facility] [id number] 2022-Present [phone] [address] [address] [place] [address] [id number] 2022 Private Health Insurance [id number] 2.16.840.1.020325.19 2000 Unknown [id number] 2.16.840.1.770349.3.579. 2.1259 2000 Unknown [id number] 2.16.840.1.297934.3.579. 2.9 2000 Unknown [id number] 2.16.840.1.629194.3.579. 2.9 2000 Unknown [id number] 2.16.840.1.502938.3.579. 2.1286 2000 Unknown [id number] 2.16.840.1.017369.3.579. 2.1285 2000 Unknown [id number] 2.16.840.1.693871.3.579. 2.1285 2000 Unknown [id number] 2.16.840.1.076370.3.579. 2.6 2000 Unknown [id number] 2.16.840.1.409230.3.579. 2.128 2000 Unknown [id number] 2.16.840.1.432670.3.579. 2.128 2000 Unknown [id number] 2.16.840.1.248368.3.579. 2.1285 2000 Unknown [id number] 2.16.840.1.180843.3.579. 2.128 2000 Unknown [id number] 2.16.840.1.612557.3.579. 2.128 2000 Unknown [id number] 2.16.840.1.727364.3.579. 2.128 2000 Unknown [id number] 2.16.840.1.257438.3.579. 2.1285 2000 Unknown [id number] 2.16.840.1.302539.3.579. 2.1285 2000 Unknown [id number] 2.16.840.1.939283.3.579. 2.128 2000 Unknown [id number] 2.16.840.1.472974.3.579. 2.1285 2000 Unknown [id number] 2.16.840.1.592177.3.579. 2.1285 2000 Unknown [id number] 2.16.840.1.494789.3.579. 2.1285 2000 Unknown [id number] 2.16.840.1.435319.3.579. 2.128 2000 Unknown [id number] 2.16.840.1.526127.3.579. 2.1285 2000 Unknown [id number] 2.16.840.1.714194.3.579. 2.1285 2000 Unknown [id number] 2.16.840.1.574908.3.579. 2.1285 2000 Unknown [id number] 2.16.840.1.913132.3.579. 2.173 2000 Unknown [id number] 2.16.840.1.442373.3.579. 2. 2000 Unknown [id number] 2.16.840.1.757825.3.579. 2. 2000 Unknown [id number] 2.16.840.1.905788.3.579. 2.173 1974 Unknown [id number] 2.16.840.1.180547.3.579. 2.593 1959 Self-pay Unknown [id number] 2.16.840.1.775672.3.579. 2.531 Social History Date Type Detail Facility Unknown if ever smoked [facility] [employer] Other Start: 09-12-2024 End: 04-25-2025 Sex Assigned At [facility] [employer] Other Start: 04-18-2024 Tobacco smoking stat [facility] Unknown if ever smoked [facility] Start: 2000 Sex Assigned At Female F [facility] Start: 07-12-2024 Tobacco smoking stat [facility] Smokes tobacco daily [facility] End: 10-05-2020 History of tobacco use Cigarette Smoker [facility] Start: 07-12-2024 End: 04-25-2025 Tobacco use and exposure Smokeless tobacco non-user [facility] Start: 09-12-2024 End: 06-20-2025 Alcoholic beverage intake Ex-drinker (finding) [facility] Start: 09-12-2024 End: 04-25-2025 History of Social function [facility] Has the [employer], or [employer] threatened to shut off services in your home in past 12Mo No [facility] How often to you hav e a drink containing alcohol? Never [facility] How many standard drinks containing alcohol do you have on a typical day? Patient does not drink [facility] Start: 01-29-2024 Alcohol Comment Patient just f ound out she was [facility] Start: 2000 Sex assigned at Not on file P [facility] Start: 05-10-2015 End: 04-25-2025 Sex Female (finding) [facility] Start: 01-29-2024 End: 11-05-2024 Tobacco smoking status NHIS Ex-smoker [facility] End: 10-05-2020 History of tobacco use Current smoker [facility] Start: 11-05-2024 End: 05-07-2025 Alcoholic beverage intake Current drinker of alcohol (finding) [facility] How often to you hav e a drink containing alcohol? 2-4 times a month [facility] How many standard drinks containing alcohol do you have on a typical day? 1 or 2 [facility] Start: 11-05-2024 Alcohol Comment x1/week [facility] How hard is it for y ou to pay for the very basics like food, housing, medical care, and heating Not very hard [facility] Start: 10-02-2022 Alcohol Comment rarely [facility] Start: 01-13-2024 [facility] Start: 04-25-2025 Tobacco smoking stat us NHIS Never smoked tobacco [employer] (I/We) worried wheth er (my/our) food would run out before (I/we) got money to buy more. Never true [facility] [facility] Goals Date Patient Goal Desired Activity /State Personal health goal Comment on above: Formatting of this n ote might be different from the original. Evaluation of progress towards goal: Plan to return home with spouse. Functional Status Date Assessment Result Facility 04-22-2024 Functional status Patient at [facility] Work Phone: 04-17-2024 Functional status Disability Sta tus Patient Not at [facility] Work Phone: [facility] Mental Status Date Assessment Result Facility 04-22-2024 Cognitive function Cognitive Sta tus Patient at [facility] Work Phone: Clinical Notes 07-22-2023 to 06-20-2025 Discharge InstructionsAttachmentsTelephone Encounter - Lacy Sanches CNA - 05/26/2025 8:49 AM EDTTelephone Encounter - Lacy Sanches CNA - 05/26/2025 8:49 AM EDTDischarge InstructionsAttachments Note Date & Type Note Facility 06-20-2025 Hospital Discharge instructions Jocelyn De Guzman APRN - [facility] - 06/20/2025 2:57 PM EDT Please call [facility] tomorrow for outpatient follow-up. Your ultrasound today shows a small structure within the uterus difficult to determine if this is early versus miscarriage. You will need to have blood work repeated to ensure progression of . I recommend that you stop smoking marijuana as this is likely contributing to the nausea, vomiting and abdominal pain that you are experiencing. The following attachments cannot be sent through Care Everywhere.Cannabinoid Hyperemesis Syndrome (Senegalese)documented in this encounter [facility] 05-26-2025 Miscellaneous Notes Attempted to call patient with no answer. Left voicemail to call office. ----- Message from VIJAYA Schaefer sent at 05/22/2025 7:48 PM EDT ----- Labs are wnl ----- Message ----- From: Lab, Background User Sent: 05/19/2025 6:41 PM EDT To: VIJAYA Schaefer documented in this encounter [facility] 05-26-2025 Telephone encounter Note Attempted to call patient with no answer. Left voicemail to call office. ----- Message from VIJAYA Schaefer sent at 05/22/2025 7:48 PM EDT ----- Labs are wnl ----- Message ----- From: Martínez, Background User Sent: 05/19/2025 6:41 PM EDT To: VIJAYA Schaefer [facility] 05-05-2025 History of Present illness Narrative Subjective Patient ID: Yolanda Villanueva is a 25 y.o. female. The patient is here today for discharge follow up from hospital. Transition of Care Med Rec completed? Yes Discharged medications: Medications have been reviewed and reconciled with the most recent facility discharge document. SUDHA Guerrero presents to the office for hospital discharge follow up. She was admitted to [facility] for hyperemesis cannabis syndrome. She had been vomiting for a week prior to coming to the emergency room on 04/25/2025. She was given Inapsine which helped calm things down. ER workup did show hypokalemia and acute kidney injury she was therefore admitted for dehydration and observation. She had history of seizures and during her hospitalization she was monitored. She admitted that she had not been taking Keppra routinely. It appeared she did have a focal seizure while hospitalized. She stayed overnight and electrolytes had improved as well as kidney function. She was discharged to home with Raf and encouraged to take her Keppra regularly and follow up with Neurology. She was instructed to avoid smoking marijuana. She had follow up with Neurology on 04/28/2025, she was no longer vomiting she was able to take her Keppra regularly. She continues on Keppra 500 mg 3 tablets twice daily. She is advised to reduce marijuana use to avoid hyperemesis syndrome. She is advised to refrain from operating any motorized vehicles or machinery for at least 6 months. She will follow up in July with neurology. Yolanda states that she is feeling better and still has some zofran at home. She reports she is no longer feeling nauseous. However she notices that when she first gets nauseous, zofran is not effective and she is not able to keep anything down. She wonders if there is something different she can take to calm the nausea when zofran is not efffective. She is following with mental health for psychiatry and counseling. CT ABDOMEN PELVIS W IV CONTRAST Result Date: 04/26/2025 EXAMINATION: CT OF THE ABDOMEN AND PELVIS WITH CONTRAST, 04/25/2025 1:15 pm - Lower Chest: Visualized portion of the lower chest demonstrates no acute abnormality. Organs: No intrahepatic or extrahepatic ductal dilatation. Focal fatty infiltration of the falciform ligament is noted. No acute inflammation of the gallbladder fossa. The pancreas, adrenal glands, spleen, and kidneys are without acute process. No obstructing ureteral calculus. GI/Bowel: No evidence of small-bowel obstruction. No evidence of acute appendicitis. No focal colitis or diverticulitis. Pelvis: No significant free intrapelvic fluid. The urinary bladder is under distended. Peritoneum/Retroperitoneum: No free intraperitoneal gas. Abdominal aorta is normal in caliber. The splenic vein and portal vein appear patent. Bones/Soft Tissues: No acute osseous or soft tissue abnormality. The following portions of the patient's history were reviewed and updated as appropriate: allergies, current medications, past family history, past medical history, past social history, past surgical history, problem list, and medication reconciliation was completed including current medication and post discharge medication. Review of Systems Constitutional: Negative for chills, diaphoresis, fatigue, fever and unexpected weight change. HENT: Negative. Eyes: Negative. Respiratory: Negative for cough, chest tightness, shortness of breath and wheezing. Cardiovascular: Negative for chest pain, palpitations and leg swelling. Gastrointestinal: Negative for abdominal pain, diarrhea, nausea and vomiting. Endocrine: Negative for polydipsia, polyphagia and polyuria. Genitourinary: Negative for difficulty urinating, frequency, hematuria and urgency. Musculoskeletal: Negative for arthralgias, gait problem, joint swelling and neck pain. Skin: Negative. Neurological: Negative for dizziness, syncope, weakness, light-headedness, numbness and headaches. Psychiatric/Behavioral: Negative for self-injury and suicidal ideas. Objective Physical Exam Vitals and nursing note reviewed. Constitutional: General: She is not in acute distress. Appearance: Normal appearance. She is well-developed. She is not ill-appearing. HENT: Head: Normocephalic and atraumatic. Right Ear: External ear normal. Left Ear: External ear normal. Eyes: Extraocular Movements: Extraocular movements intact. Pupils: Pupils are equal, round, and reactive to light. Neck: Vascular: No carotid bruit. Cardiovascular: Rate and Rhythm: Normal rate and regular rhythm. Pulses: Normal pulses. Heart sounds: Normal heart sounds. No murmur heard. Pulmonary: Effort: Pulmonary effort is normal. No respiratory distress. Breath sounds: Normal breath sounds. No wheezing, rhonchi or rales. Chest: Chest wall: No tenderness. Abdominal: General: Bowel sounds are normal. Palpations: Abdomen is soft. Tenderness: There is no abdominal tenderness. Musculoskeletal: General: Normal range of motion. Cervical back: Normal range of motion and neck supple. No rigidity or tenderness. Right lower leg: No edema. Left lower leg: No edema. Lymphadenopathy: Cervical: No cervical adenopathy. Skin: General: Skin is warm and dry. Capillary Refill: Capillary refill takes less than 2 seconds. Findings: No rash. Neurological: General: No focal deficit present. Mental Status: She is alert and oriented to person, place, and time. Motor: No weakness. Psychiatric: Mood and Affect: Mood normal. Behavior: Behavior normal. Assessment/Plan ER note reviewed. Continue with keppra as prescribed by neurology. Ensure to stay hydrated with electrolytes. Encouraged to try zofran, but if not effective she can take phenergan. Rx sent. Encouraged marijuana cessation. Bmp ordered to recheck labs. However, also discussed with patient if she begins to feel nauseous call our office and we can place labs to monitor electrolytes and kidney function. Keep routine FU with PCP. Yolanda was seen today for follow-up. Diagnoses and all orders for this visit: Nausea and vomiting, unspecified vomiting type - promethazine (PHENERGAN) 12.5 mg tablet; Take 1 tablet (12.5 mg total) by mouth every 6 (six) hours as needed for nausea or vomiting. Hypokalemia - Basic Metabolic Panel; Future RAKESH (acute kidney injury) - Basic Metabolic Panel; Future VIJAYA Schaefer 05/07/25 1321 documented in this encounter [facility] 04-28-2025 History of Present illness Narrative [facility] Neurology Office Note 04/26/2025 2:10 PM Patient info: Yolanda Villanueva is a 25 y.o. female Account No.: [id number] Acct: : 2000 PCP: OTTONIEL ARIAS MD Chief Complaint: Patient, 24 year old right hand dominant female, presents for follow up Neurological evaluation regarding seizures. Last seen in the office on 03/15/25 Yolanda is present in the office today by herself. Interval Hx: Labs 03/23/25: Keppra level was 29.6 (range: 10-40), BMP was normal At last office visit (03/15/25) increased Keppra to 500 mg, 3 tabs (1,500 mg) BID for seizure prophylaxis. Admitted to hospital 04/25-04/26. She was unable to keep almost anything down for 7-10 days prior secondary to vomiting. During this time was not taking Keppra regularly. While in hospital had a seizure; per description was focal with secondary generalization: (+) lateral tongue bite Since hospital discharge has not had any further seizure activity and has been taking Keppra regularly. Labs 04/26/25: Levetiracetam level was 15 (range: 6-46) Previous Studies: 11/05/24-11/06/24: Video EEG - This EEG is abnormal due to the presence of generalized predominantly paracentral slow waves with triphasic morphology and generalized background slowing consistent with bihemispheric cerebral dysfunction that may be seen in postictal states, hypoxic, toxic or metabolic abnormalities, sedative medications use or primary neurological disorders. 11/04/24: CT Head without contrast - No acute intracranial findings 09/13/24-09/14/24: LTME - Two brief subclinical electrographic focal seizures, left temporal onset - Left temporal negative sharp/spike-wave discharges, seen occasionally - Intermittent left temporal sharp waves. - Six electrographic seizures with left posterior temporal onset between 07:40 AM and 10:22 AM on 09/13/24. 03/03/24: Brain MRI without contrast - Normal 02/23/24: Sleep Deprived EEG - Normal Prior Hx: 07/12/24 The patient is a 24 years old right-handed female with past medical history of anxiety, depression, GERD, eczema, who is following up in the neurology clinic for evaluation of seizure-like activity. Patient reports onset of paroxysms roughly six months ago. She has been witnessed to have multiple seizure-like episodes, which have all occurred during sleep. The episodes have been witnessed by the patient's , who is usually woken up from the shaking. Patient reports being under immense amount of stress around the time when he started having these symptoms. Per patient, typically when under duress/stress, the patient would have paroxysms of what is described as episodes of staring into the distance , as if in deep thought. Paroxysms were not associated with automatisms, warning signs, auras, focal motor weakness, sensory disturbances, convulsions, rhythmic shaking, headaches, nausea, vomiting, visual impairment, falls, behavioral disturbances, agitation, hallucinations, Urinary incontinence or tongue bites. Typically the symptoms are aborted when the patient is distracted by someone else. He reports recalling a paroxysms which lasted a few hours as there was no one around him to make him snap out of it . Currently he reports having these episodes every other day. Patient denies any post event confusion, disorientation, lethargy, fatigue, incontinence. Patient denies previous history of seizures, history of TBI, history of meningitis or encephalitis, history of learning disability, febrile seizures. 1 of his dad's brother was recently diagnosed with seizures, however at an advanced age. 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 He is currently following up with a psychiatrist and counselor. Interestingly, he mentions at most with the paroxysms usually occur when the patient is transitioning from 1 personality to the other . Usually transitions from 1 personality to another in times of stress/duress. Has not had any neuroimaging in the past. Denies having EEGs in the past. Is currently independent with ADLs and IADLs. Ambulating without any assistive devices. Interval history 07/12/2024: - MRI brain with without contrast on 03/03/2024 was a normal study. - routine EEG on 02/23/2024 was a normal study. - was in the emergency room on 04/16/2024 with a suicide attempt. Also history of previous suicidal attempts. - has continued to have nocturnal convulsions. Spouse shows me a video recording of a recent generalized convulsion, in which the patient is lying down on her back, with her upper extremities contorted inside, and having at times rhythmic and at others nonrhythmic proximal twitching of the upper extremity, with both upper extremity bumping into each other. At the same time it seems she was having lower facial twitching however only the lips seemed to be involved, almost pouting, with alternative twitching noticed of both angles of the mouth, with variable rhythmicity. There were no abnormal movements of the eyes appreciated, her eyes being semi open throughout the episode. The convulsions lasted out 1.5 minutes at the end of fish the twitches seemed to slow down and eventually stopped. At that time the patient appeared to be resting on her back, headed listless expression on her face with her eyes semi open. She did not respond to any verbal stimuli. The patient reported that she was in that state for another 30 minutes after regaining consciousness. Patient has no recollection of the event. Episode was not associated with incontinence, however the patient reports she did bite her tongue a few times. Last nocturnal convulsion was a few days ago. - the patient is currently seeing a psychiatrist and counselor, however has not informed them that she is having seizures. She is currently seeing them for poorly controlled anxiety and mood disorders. 11/05/24 Patient initially presented to outside hospital for concerns of recurrent seizures at home. History is mainly obtained per chart review and family present at bedside. Patient's spouse states that around 9:00 a.m. on 11/04/2024 he noted the patient to have a 1 minute seizure-like activity which he recorded which appears to be the patient convulsing with her bilateral upper extremities flexed and her eyes closed. Spouse states that after this episode in the morning the patient was confused for about an hour and a half as well as anxious and then it was back to baseline. He said shortly after she was back to baseline she had another episode of seizure-like activity. Additionally, spouse states that he also thinks that the patient may have had a seizure during the night as she seemed to be confused prior to the 1 at 9:00 a.m.. Spouse states that he then took her to outside hospital for the concerns of recurrent seizures. Spouse states that the patient has been compliant with her medications including Keppra and Lamictal however developed a rash concerning for drug-induced rash versus eczema 3 days prior. Spouse states that the patient was still taking her Lamictal up until her admission to outside hospital. At outside hospital patient was found to be tachycardic and tachypneic with initial labs remarkable for elevated WBC count of 40, hyponatremia of 130, hypokalemia of 2.8, CK of 26,000, procalcitonin 40, rapid lactate of 2.9, and negative COVID and flu. A CT brain was obtained which she was negative for any acute intracranial abnormalities. CT abdomen and pelvis showed possible colitis/enteritis. At outside hospital a bedside lumbar puncture was attempted however failed. Patient was started on empiric antibiotics for possible meningitis as well as colitis/enteritis. Patient was then transferred to [facility] for further management. Follow up 12/21/24 Discharged home on 11/12/24 on Keppra and Lacosamide. Claims Lacosamide caused a rash, so she stopped taking it a couple days ago and the rash has since been clearing. There has been no breakthrough seizures since hospital discharge (11/12/24). Denies any sort of mood changes on Keppra. Follow up 03/15/25 Yolanda is continuing to take Keppra 500 mg, 2 tabs (1,000 mg) BID for seizure prophylaxis. She has been tolerating the medication well. She reports 2 seizure events since last office visit (12/21/24); both occurring during sleep. (+) lateral tongue bite both times One of the 2 events she awoke immediately after seizing and was in psychosis talking with her mother for approximately 30 minutes prior to going back to sleep. She was most likely postictal rather than in psychosis . Past Medical Hx: See EMR Surgical Hx: See EMR Allergies: See EMR Review of Systems: Constitutional: Negative for fever, chills, sweats, or unintentional weight loss Eyes: Negative HENT: Negative Cardiovascular: Negative for chest pain and palpitations Respiratory: Negative for cough and shortness of breath Gastrointestinal: Negative for nausea, vomiting, abdominal pain and diarrhea Genitourinary: Negative for dysuria, urgency, frequency, or hematuria Musculoskeletal: Negative for myalgias or joint swelling Skin: Negative for skin rash Neurological: - as noted in the HPI Psychiatric/Behavioral: Negative Endocrine: Negative Hem/Onc: Negative Allergy/immunology: Negative Vitals: BP: 125/88 HR: 72 Weight: 88.5 kg Physical Exam: General: well groomed, pleasant, appears stated age Neurological Exam: The patient is awake, alert, and attentive Speech and language are normal Normal affect, with normal orientation and cognition EOMI, PERRL, No gross visual field deficits Face is symmetric, Tongue protrudes midline Palate rises symmetrically with uvula midline Shoulder shrug is strong bilaterally Nose to finger testing is without dysmetria Upper Extremity Drift is (-) Fine motor skills are approximately equal in each hand Tremor: (-) Sensation is intact and symmetric in the extremities bilaterally DTR's are 2+ throughout Quinteros's sign (-) bilaterally Strength throughout the Upper Extremities is 5/5 Strength throughout the Lower Extremities is 5/5 Muscle Tone throughout the extremities is normal Romberg is (-) Gait is steady with normal base, normal stride and bilateral arm swing ASSESSMENT: Yolanda is a 24 year old right hand dominant female with a hx of GERD, anxiety, and depression who has a seizure disorder; focal onset, left temporal. Recent breakthrough seizure secondary to lack of Keppra intake due to hyperemesis syndrome. PLAN: Continue Keppra 500 mg, 3 tabs (1,500 mg) BID Work on reducing Marijuana use to avoid hyperemesis syndrome Advised to refrain from operating any sort of motorized vehicle and/or heavy machinery at this time; at least 6 months from the most recent seizure event. Advised to refrain from climbing various objects, such as ladders, scaffolding, trees, etc. Advised to have another adult present at all times if submerging oneself into water, such as in a bath, jacuzzi, pool, pond, etc. Follow up in the office on 07/18/25 as currently scheduled Electronically Signed by: Bryant Hines PA-C 04/28/25 1409 documented in this encounter [facility] 04-26-2025 History of Present illness Narrative Discharge instructions, medications, and follow up appointments reviewed with the patient and appropriate educational materials and side effects teaching were provided. Patient up to bathroom at this time. Gait steady. States she feels better after zofran. Mom at bedside. IV potassium continues to infuse per protocol. Will continue to monitor. Dr. Dumas notified of transfer to ICU and seizure this morning. Report given to Daisy SANTIAGO and patient transferred to ICU Patient's visitor calls out to singh for help at this time. Director Of Food And Beverage Services to bedside. Patient noted to be having a seizure, assembly instructions writer requested additional staff at bedside. Multiple RNs, Vashti RN electric repair supervisor, Mari regulatory compliance manager, and Jocelyn CHARLTON all at bedside. Patient was positioned to left side. HR 122, BP 150/73, SPO2 97%. Patient is able to speak to assembly instructions writer and follow commands following seizure. Director Of Food And Beverage Services to bedside for morning assessment. Patient is resting in bed. Patient is A&O x4. Breathing is regular and unlabored. Abdomen is soft and tender, patient reports generalized abdominal aching. Patient does report feeling nauseous. Patient states zofran does not work for her, assembly instructions writer will request new orders. Patient denies further needs at this time. Call light is within reach. Care ongoing. Patient A&O x4, calm, and cooperative. Vital signs and head to toe assessment completed at this time, see flowsheets for details. Patient was briefly educated on medications due tonight. Patient denies needs at this time. Call light within reach. Bedside table within reach, bed in lowest position, bed/chair wheels locked, and alarm is set. Care ongoing. documented in this encounter [facility] 04-26-2025 Hospital Discharge instructions Jocelyn De Guzman APRN - [facility] - 04/26/2025 3:56 PM EDT Stop smoking marijuana, this will help prevent further episodes of vomiting. Take your seizure medications as prescribed. Follow up with your pcp. The following attachments cannot be sent through Care Everywhere.Cannabinoid Hyperemesis Syndrome (Seneg[place]e)documented in this encounter [facility] 03-15-2025 History of Present illness Narrative [facility] Neurology Office Note 03/14/2025 11:55 AM Patient info: Yolanda Villanueva is a 24 y.o. female Account No.: [id number] Acct: : 2000 PCP: OTTONIEL ARIAS MD Chief Complaint: Patient, 24 year old right hand dominant female, presents for follow up Neurological evaluation regarding seizures. Last seen in the office on 12/21/24 Yolanda is present in the office today by herself. Interval Hx: Yolanda is continuing to take Keppra 500 mg, 2 tabs (1,000 mg) BID for seizure prophylaxis. She has been tolerating the medication well. She reports 2 seizure events since last office visit (12/21/24); both occurring during sleep. (+) lateral tongue bite both times One of the 2 events she awoke immediately after seizing and was in psychosis talking with her mother for approximately 30 minutes prior to going back to sleep. She was most likely postictal rather than in psychosis . Previous Studies: 11/05/24-11/06/24: Video EEG - This EEG is abnormal due to the presence of generalized predominantly paracentral slow waves with triphasic morphology and generalized background slowing consistent with bihemispheric cerebral dysfunction that may be seen in postictal states, hypoxic, toxic or metabolic abnormalities, sedative medications use or primary neurological disorders. 11/04/24: CT Head without contrast - No acute intracranial findings 09/13/24-09/14/24: LTME - Two brief subclinical electrographic focal seizures, left temporal onset - Left temporal negative sharp/spike-wave discharges, seen occasionally - Intermittent left temporal sharp waves. - Six electrographic seizures with left posterior temporal onset between 07:40 AM and 10:22 AM on 09/13/24. 03/03/34: Brain MRI without contrast - Normal 02/23/24: Sleep Deprived EEG - Normal Prior Hx: 07/12/24 The patient is a 24 years old right-handed female with past medical history of anxiety, depression, GERD, eczema, who is following up in the neurology clinic for evaluation of seizure-like activity. Patient reports onset of paroxysms roughly six months ago. She has been witnessed to have multiple seizure-like episodes, which have all occurred during sleep. The episodes have been witnessed by the patient's , who is usually woken up from the shaking. Patient reports being under immense amount of stress around the time when he started having these symptoms. Per patient, typically when under duress/stress, the patient would have paroxysms of what is described as episodes of staring into the distance , as if in deep thought. Paroxysms were not associated with automatisms, warning signs, auras, focal motor weakness, sensory disturbances, convulsions, rhythmic shaking, headaches, nausea, vomiting, visual impairment, falls, behavioral disturbances, agitation, hallucinations, Urinary incontinence or tongue bites. Typically the symptoms are aborted when the patient is distracted by someone else. He reports recalling a paroxysms which lasted a few hours as there was no one around him to make him snap out of it . Currently he reports having these episodes every other day. Patient denies any post event confusion, disorientation, lethargy, fatigue, incontinence. Patient denies previous history of seizures, history of TBI, history of meningitis or encephalitis, history of learning disability, febrile seizures. 1 of his dad's brother was recently diagnosed with seizures, however at an advanced age. 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 He is currently following up with a psychiatrist and counselor. Interestingly, he mentions at most with the paroxysms usually occur when the patient is transitioning from 1 personality to the other . Usually transitions from 1 personality to another in times of stress/duress. Has not had any neuroimaging in the past. Denies having EEGs in the past. Is currently independent with ADLs and IADLs. Ambulating without any assistive devices. Interval history 07/12/2024: - MRI brain with without contrast on 03/03/2024 was a normal study. - routine EEG on 02/23/2024 was a normal study. - was in the emergency room on 04/16/2024 with a suicide attempt. Also history of previous suicidal attempts. - has continued to have nocturnal convulsions. Spouse shows me a video recording of a recent generalized convulsion, in which the patient is lying down on her back, with her upper extremities contorted inside, and having at times rhythmic and at others nonrhythmic proximal twitching of the upper extremity, with both upper extremity bumping into each other. At the same time it seems she was having lower facial twitching however only the lips seemed to be involved, almost pouting, with alternative twitching noticed of both angles of the mouth, with variable rhythmicity. There were no abnormal movements of the eyes appreciated, her eyes being semi open throughout the episode. The convulsions lasted out 1.5 minutes at the end of fish the twitches seemed to slow down and eventually stopped. At that time the patient appeared to be resting on her back, headed listless expression on her face with her eyes semi open. She did not respond to any verbal stimuli. The patient reported that she was in that state for another 30 minutes after regaining consciousness. Patient has no recollection of the event. Episode was not associated with incontinence, however the patient reports she did bite her tongue a few times. Last nocturnal convulsion was a few days ago. - the patient is currently seeing a psychiatrist and counselor, however has not informed them that she is having seizures. She is currently seeing them for poorly controlled anxiety and mood disorders. 11/05/24 Patient initially presented to outside hospital for concerns of recurrent seizures at home. History is mainly obtained per chart review and family present at bedside. Patient's spouse states that around 9:00 a.m. on 11/04/2024 he noted the patient to have a 1 minute seizure-like activity which he recorded which appears to be the patient convulsing with her bilateral upper extremities flexed and her eyes closed. Spouse states that after this episode in the morning the patient was confused for about an hour and a half as well as anxious and then it was back to baseline. He said shortly after she was back to baseline she had another episode of seizure-like activity. Additionally, spouse states that he also thinks that the patient may have had a seizure during the night as she seemed to be confused prior to the 1 at 9:00 a.m.. Spouse states that he then took her to outside hospital for the concerns of recurrent seizures. Spouse states that the patient has been compliant with her medications including Keppra and Lamictal however developed a rash concerning for drug-induced rash versus eczema 3 days prior. Spouse states that the patient was still taking her Lamictal up until her admission to outside hospital. At outside hospital patient was found to be tachycardic and tachypneic with initial labs remarkable for elevated WBC count of 40, hyponatremia of 130, hypokalemia of 2.8, CK of 26,000, procalcitonin 40, rapid lactate of 2.9, and negative COVID and flu. A CT brain was obtained which she was negative for any acute intracranial abnormalities. CT abdomen and pelvis showed possible colitis/enteritis. At outside hospital a bedside lumbar puncture was attempted however failed. Patient was started on empiric antibiotics for possible meningitis as well as colitis/enteritis. Patient was then transferred to [facility] for further management. Follow up 12/21/24 Discharged home on 11/12/24 on Keppra and Lacosamide. Claims Lacosamide caused a rash, so she stopped taking it a couple days ago and the rash has since been clearing. There has been no breakthrough seizures since hospital discharge (11/12/24). Denies any sort of mood changes on Keppra. Past Medical Hx: See EMR Surgical Hx: See EMR Allergies: See EMR Review of Systems: Constitutional: Negative for fever, chills, sweats, or unintentional weight loss Eyes: Negative HENT: Negative Cardiovascular: Negative for chest pain and palpitations Respiratory: Negative for cough and shortness of breath Gastrointestinal: Negative for nausea, vomiting, abdominal pain and diarrhea Genitourinary: Negative for dysuria, urgency, frequency, or hematuria Musculoskeletal: Negative for myalgias or joint swelling Skin: Negative for skin rash Neurological: - as noted in the HPI Psychiatric/Behavioral: Negative Endocrine: Negative Hem/Onc: Negative Allergy/immunology: Negative Vitals: BP: 118/81 HR: 77 Weight: 88.5 kg Physical Exam: General: well groomed, pleasant, appears stated age Neurological Exam: The patient is awake, alert, and attentive Speech and language are normal Normal affect, with normal orientation and cognition EOMI, PERRL, No gross visual field deficits Face is symmetric, Tongue protrudes midline Palate rises symmetrically with uvula midline Shoulder shrug is strong bilaterally Nose to finger testing is without dysmetria Upper Extremity Drift is (-) Fine motor skills are approximately equal in each hand Tremor: (-) Sensation is intact and symmetric in the extremities bilaterally DTR's are 2+ throughout Quinteros's sign (-) bilaterally Strength throughout the Upper Extremities is 5/5 Strength throughout the Lower Extremities is 5/5 Muscle Tone throughout the extremities is normal Romberg is (-) Gait is steady with normal base, normal stride and bilateral arm swing ASSESSMENT: Yolanda is a 24 year old right hand dominant female with a hx of GERD, anxiety, and depression who has a seizure disorder; focal onset, left temporal. PLAN: Increase Keppra to 500 mg, 3 tabs (1,500 mg) BID Labs: Keppra level, BMP; check in 1 week Advised to refrain from operating any sort of motorized vehicle and/or heavy machinery at this time; at least 6 months from most recent seizure event Advised to refrain from climbing various objects, such as ladders, scaffolding, trees, etc. Advised to have another adult present at all times if submerging oneself into water, such as in a bath, jacuzzi, pool, pond, etc. Follow up in the office in 4-6 months Electronically Signed by: Bryant Hines PA-C 03/15/25 1046 documented in this encounter [facility] 12-21-2024 History of Present illness Narrative [facility] Neurology Office Note 12/20/2024 9:58 AM Patient info: Yolanda Villanueva is a 24 y.o. female Account No.: [id number] Acct: : 2000 PCP: OTTONIEL ARIAS MD Chief Complaint: Patient, 24 year old right hand dominant female, presents for follow up Neurological evaluation regarding seizures. Last seen in the office on 07/12/24 Yolanda is present in the office today by herself Interval Hx: Discharged home on 11/12/24 on Keppra and Lacosamide. Claims Lacosamide caused a rash, so she stopped taking it a couple days ago and the rash has since been clearing. There has been no breakthrough seizures since hospital discharge (11/12/24). Denies any sort of mood changes on Keppra. Previous Studies: 11/05/24-11/06/24: Video EEG - This EEG is abnormal due to the presence of generalized predominantly paracentral slow waves with triphasic morphology and generalized background slowing consistent with bihemispheric cerebral dysfunction that may be seen in postictal states, hypoxic, toxic or metabolic abnormalities, sedative medications use or primary neurological disorders. 11/04/24: CT Head without contrast - No acute intracranial findings 09/13/24-09/14/24: LTME - Two brief subclinical electrographic focal seizures, left temporal onset - Left temporal negative sharp/spike-wave discharges, seen occasionally - Intermittent left temporal sharp waves. - Six electrographic seizures with left posterior temporal onset between 07:40 AM and 10:22 AM on 09/13/24. 03/03/34: Brain MRI without contrast - Normal 02/23/24: Sleep Deprived EEG - Normal Prior Hx: 07/12/24 The patient is a 24 years old right-handed female with past medical history of anxiety, depression, GERD, eczema, who is following up in the neurology clinic for evaluation of seizure-like activity. Patient reports onset of paroxysms roughly six months ago. She has been witnessed to have multiple seizure-like episodes, which have all occurred during sleep. The episodes have been witnessed by the patient's , who is usually woken up from the shaking. Patient reports being under immense amount of stress around the time when he started having these symptoms. Per patient, typically when under duress/stress, the patient would have paroxysms of what is described as episodes of staring into the distance , as if in deep thought. Paroxysms were not associated with automatisms, warning signs, auras, focal motor weakness, sensory disturbances, convulsions, rhythmic shaking, headaches, nausea, vomiting, visual impairment, falls, behavioral disturbances, agitation, hallucinations, Urinary incontinence or tongue bites. Typically the symptoms are aborted when the patient is distracted by someone else. He reports recalling a paroxysms which lasted a few hours as there was no one around him to make him snap out of it . Currently he reports having these episodes every other day. Patient denies any post event confusion, disorientation, lethargy, fatigue, incontinence. Patient denies previous history of seizures, history of TBI, history of meningitis or encephalitis, history of learning disability, febrile seizures. 1 of his dad's brother was recently diagnosed with seizures, however at an advanced age. 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 He is currently following up with a psychiatrist and counselor. Interestingly, he mentions at most with the paroxysms usually occur when the patient is transitioning from 1 personality to the other . Usually transitions from 1 personality to another in times of stress/duress. Has not had any neuroimaging in the past. Denies having EEGs in the past. Is currently independent with ADLs and IADLs. Ambulating without any assistive devices. Interval history 07/12/2024: - MRI brain with without contrast on 03/03/2024 was a normal study. - routine EEG on 02/23/2024 was a normal study. - was in the emergency room on 04/16/2024 with a suicide attempt. Also history of previous suicidal attempts. - has continued to have nocturnal convulsions. Spouse shows me a video recording of a recent generalized convulsion, in which the patient is lying down on her back, with her upper extremities contorted inside, and having at times rhythmic and at others nonrhythmic proximal twitching of the upper extremity, with both upper extremity bumping into each other. At the same time it seems she was having lower facial twitching however only the lips seemed to be involved, almost pouting, with alternative twitching noticed of both angles of the mouth, with variable rhythmicity. There were no abnormal movements of the eyes appreciated, her eyes being semi open throughout the episode. The convulsions lasted out 1.5 minutes at the end of fish the twitches seemed to slow down and eventually stopped. At that time the patient appeared to be resting on her back, headed listless expression on her face with her eyes semi open. She did not respond to any verbal stimuli. The patient reported that she was in that state for another 30 minutes after regaining consciousness. Patient has no recollection of the event. Episode was not associated with incontinence, however the patient reports she did bite her tongue a few times. Last nocturnal convulsion was a few days ago. - the patient is currently seeing a psychiatrist and counselor, however has not informed them that she is having seizures. She is currently seeing them for poorly controlled anxiety and mood disorders. 11/05/24 Patient initially presented to outside hospital for concerns of recurrent seizures at home. History is mainly obtained per chart review and family present at bedside. Patient's spouse states that around 9:00 a.m. on 11/04/2024 he noted the patient to have a 1 minute seizure-like activity which he recorded which appears to be the patient convulsing with her bilateral upper extremities flexed and her eyes closed. Spouse states that after this episode in the morning the patient was confused for about an hour and a half as well as anxious and then it was back to baseline. He said shortly after she was back to baseline she had another episode of seizure-like activity. Additionally, spouse states that he also thinks that the patient may have had a seizure during the night as she seemed to be confused prior to the 1 at 9:00 a.m.. Spouse states that he then took her to outside hospital for the concerns of recurrent seizures. Spouse states that the patient has been compliant with her medications including Keppra and Lamictal however developed a rash concerning for drug-induced rash versus eczema 3 days prior. Spouse states that the patient was still taking her Lamictal up until her admission to outside hospital. At outside hospital patient was found to be tachycardic and tachypneic with initial labs remarkable for elevated WBC count of 40, hyponatremia of 130, hypokalemia of 2.8, CK of 26,000, procalcitonin 40, rapid lactate of 2.9, and negative COVID and flu. A CT brain was obtained which she was negative for any acute intracranial abnormalities. CT abdomen and pelvis showed possible colitis/enteritis. At outside hospital a bedside lumbar puncture was attempted however failed. Patient was started on empiric antibiotics for possible meningitis as well as colitis/enteritis. Patient was then transferred to [facility] for further management. Past Medical Hx: See EMR Surgical Hx: See EMR Allergies: See EMR Review of Systems: Constitutional: Negative for fever, chills, sweats, or unintentional weight loss Eyes: Negative HENT: Negative Cardiovascular: Negative for chest pain and palpitations Respiratory: Negative for cough and shortness of breath Gastrointestinal: Negative for nausea, vomiting, abdominal pain and diarrhea Genitourinary: Negative for dysuria, urgency, frequency, or hematuria Musculoskeletal: Negative for myalgias or joint swelling Skin: Negative for skin rash Neurological: - as noted in the HPI Psychiatric/Behavioral: Negative Endocrine: Negative Hem/Onc: Negative Allergy/immunology: Negative Vitals: BP: 110/76 HR: 71 Weight: 90.7 kg Physical Exam: General: well groomed, pleasant, appears stated age Neurological Exam: The patient is awake, alert, and attentive Speech and language are normal Normal affect, with normal orientation and cognition EOMI, PERRL, No gross visual field deficits Face is symmetric, Tongue protrudes midline Palate rises symmetrically with uvula midline Shoulder shrug is strong bilaterally Nose to finger testing is without dysmetria Upper Extremity Drift is (-) Fine motor skills are approximately equal in each hand Tremor: (-) Sensation is intact and symmetric in the extremities bilaterally DTR's are 2+ throughout Quinteros's sign (-) bilaterally Strength throughout the Upper Extremities is 5/5 Strength throughout the Lower Extremities is 5/5 Muscle Tone throughout the extremities is normal Romberg is (-) Gait is steady with normal base, normal stride and bilateral arm swing ASSESSMENT: Yolanda is a 24 year old right hand dominant female with a hx of GERD, anxiety, and depression who has a seizure disorder; focal onset, left temporal. PLAN: Keppra 500 mg, 2 tabs (1,000 mg) BID Advised to refrain from operating any sort of motorized vehicle and/or heavy machinery at this time; 6 months from the most recent seizure event. Advised to refrain from climbing various objects, such as ladders, scaffolding, trees, etc. Advised to have another adult present at all times if submerging oneself into water, such as in a bath, jacuzzi, pool, pond, etc. Follow up in the office in 3-4 months Electronically Signed by: Bryant Hines PA-C 12/25/24 1726 documented in this encounter [employer] 12-06-[address] Bragg Reschedule: Patient's appointment with Dr. Bragg on December 20, 2024 needs to be rescheduled at this time due to provider out of clinic. Contacted patient and offered to reschedule for next available with Dr. Bragg or Evaristo, per electric repair supervisor's instruction. Patient is rescheduled to see Bryant Donny at our [place] location on 12/21/24 at 10:30a for 60 minutes documented in this encounter [facility] 12-06-[address] Bragg Reschedule: Patient's appointment with Dr. Bragg on December 20, 2024 needs to be rescheduled at this time due to provider out of clinic. Contacted patient and offered to reschedule for next available with Dr. Bragg or Evaristo, per electric repair supervisor's instruction. Patient is rescheduled to see Bryant Hines at our [place] location on 12/21/24 at 10:30a for 60 minutes [facility] 11-22-2024 Miscellaneous Notes Patient called make a new appt. Referral placed today. Call back [phone] Pt is not new last seen in by PROMISE 11/12/24. PROMISE's discharge instructions stated that pt needs to repeat labs prior to f/u recommendations. Orders placed by Janay Mustafa and pt plans on getting the labs done by . Please advise if pt needs to f/u with us after getting the labs done. documented in this encounter [facility] 11-22-2024 Telephone encounter Note Patient called make a new appt. Referral placed today. Call back [phone] [facility] 11-22-2024 Telephone encounter Note Pt is not new last seen inpt by PROMISE 11/12/24. PROMISE's discharge instructions stated that pt needs to repeat labs prior to f/u recommendations. Orders placed by Janay Mustafa and pt plans on getting the labs done by . Please advise if pt needs to f/u with us after getting the labs done. [facility] History of Present illness Narrative Subjective Patient ID: Yolanda Villanueva is a 24 y.o. female. The patient is here today for discharge follow up from hospital. Transition of Care Med Rec completed? Yes Discharged medications: Medications have been reviewed and reconciled with the most recent facility discharge document. HPI Yolanda presents with her spouse, after admission to [facility] on 11/05/2024-11/12/2024. She was admitted for seizures due to medication noncompliance. (Although, pt states was drinking, and this tends to happen if she drinks),acute rhabdomyolysis, influenza A, acute renal failure, and eczema. Radha states she is feeling much better than when was hospitalized, although is still very tired. States sleeps frequently throughout the day, and still sleeps well at night.She has an appointment with neurology on 12/20/2024. She is also to see nephrology. States she was given the information in the hospital, but has been too tired to call for nephrology appointment. Additionally, sees psychiatry at [facility]. Yolanda states she feels dizzy when bends or turns her head quickly. Also notes still some shortness of breath with activity. Does feel symptoms are improving. Yolanda has a history of eczema, which she feels was fairly well controlled before she went into the hospital. Although, since discharge eczema has worsened on her right hand. She has an open area and scaly areas on the palm. She and spouse relate she frequently picks at the tissue. She has used Ammonium lactate without relief. The following portions of the patient's history were reviewed and updated as appropriate: allergies, current medications, past family history, past medical history, past social history, past surgical history, problem list, and medication reconciliation was completed including current medication and post discharge medication. Review of Systems Constitutional: Positive for fatigue. HENT: Negative. Negative for ear pain, postnasal drip, rhinorrhea, sinus pressure, sinus pain, sore throat and trouble swallowing. Eyes: Negative. Respiratory: Positive for cough and shortness of breath. Negative for wheezing. Cardiovascular: Negative. Gastrointestinal: Negative. Musculoskeletal: Negative. Skin: Positive for color change. Neurological: Positive for dizziness, seizures, weakness and headaches. Hematological: Negative. Psychiatric/Behavioral: Negative. Negative for sleep disturbance. Objective Physical Exam Vitals and nursing note reviewed. Constitutional: Appearance: Normal appearance. She is well-developed. Comments: BMI 34.35 HENT: Head: Normocephalic and atraumatic. Right Ear: Hearing, tympanic membrane, ear canal and external ear normal. Left Ear: Hearing, tympanic membrane, ear canal and external ear normal. Nose: Rhinorrhea present. Mouth/Throat: Lips: Pilgrim. Mouth: Mucous membranes are moist. Pharynx: Oropharynx is clear. Uvula midline. No oropharyngeal exudate. Eyes: General: Lids are normal. Extraocular Movements: Extraocular movements intact. Conjunctiva/sclera: Conjunctivae normal. Pupils: Pupils are equal, round, and reactive to light. Cardiovascular: Rate and Rhythm: Normal rate and regular rhythm. Pulses: Normal pulses. Heart sounds: Normal heart sounds. Pulmonary: Effort: Pulmonary effort is normal. Breath sounds: Normal breath sounds and air entry. Abdominal: General: Bowel sounds are normal. There is no distension. Palpations: Abdomen is soft. Tenderness: There is no abdominal tenderness. Comments: Unable to determine mass due to body habitus Musculoskeletal: General: Normal range of motion. Cervical back: Normal range of motion and neck supple. Lymphadenopathy: Cervical: No cervical adenopathy. Skin: General: Skin is warm and dry. Findings: Lesion present. No rash. Comments: Skin is peeling over most of palm of right hand, with small open area in center of palm. Neurological: General: No focal deficit present. Mental Status: She is alert and oriented to person, place, and time. Psychiatric: Mood and Affect: Mood normal. Behavior: Behavior normal. Assessment/Plan Yolanda is stable at this time. States she is compliant with her medication, and feels drinking brought on the seizures. Referral was placed to nephrology at this time. Patient had not made appointment due to fatigue, although is willing to follow up. Recommend clobetasol to right hand nightly Encouraged to wear white glove at night, to avoid picking at dried skin Causing irritation Keep appt with neuro 12/20/2024 Referral placed to nephrology Follow up with pcp in 3 weeks for eczema recheck, may need derm referral Yolanda was seen today for follow-up. 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 [facility] 11/22/24 1249 documented in this encounter [employer] 11-15-2024 Miscellaneous Notes Images from the original note were not included. Transition of Care Additional Questions/Concerns Requiring PCP Follow-Up: This documentation is being used for Transition of Care purposes: Yes Goal: Patient will demonstrate a safe transition from hospital to home. Diagnosis on Discharge: Breakthrough seizure likely secondary to medication nonadherence Discharge Specialty: Infectious Disease and Neurology Name of Discharging Facility: [facility] Date of Facility Discharge: 11.05.24-11.12.24 Date of Interactive Contact and Name of Seedling Sorter: 11.15.24 9994 Spoke with the patient. Medication Review Completed: Yes -Reviewed the patients medication list with her. EHR list is up to date. Follow Up Appointments with Providers: Primary: OTTONIEL ARIAS MD appointment with Janay Mustafa CNP 11.22.24 11 am Specialty: Neurology 12.20.24 12 pm Specialty: Nephrology TBD Review of Pending Lab/Diagnostic Tests and Plan for Completion: -AVS mention that the patient is to have a BMP and CK level repeated in 1 week but no order has been placed in Epic. Assessment and Support of Treatment Regimen Adherence and Medication Management: -Patient reports that she is doing good. -Patient denies any chest pain, shortness of breath, fever, chills or seizure activity. -Patient continues to have an occasional dry cough. -Patient is independent with her medication and treatment regime. Education Provided by [facility] to Support Self-Management, Independent Living and ADLs: -Patient lives with her . -Patient denies the need for any DME. -Medication education was provided. -Encouraged to call the office with any questions, concerns, new or worsening symptoms. -Instructed to call 911 with any sudden shortness of breath or chest pain. -Explained TCM services that are available. Explained that [facility] will be available to provide assistance for a minimum of 30 days post discharge. Yamilex Ramsey's contact information was provided and encouraged patient to call for assistance as needed. Communication with Home Health Agencies and Other Services Utilized/Needed by the Patient: -None Order were placed for labs, to have done 11/19/2024 [facility] Telephone encounter Note Images from the original note were not included. Transition of Care Additional Questions/Concerns Requiring PCP Follow-Up: This documentation is being used for Transition of Care purposes: Yes Goal: Patient will demonstrate a safe transition from hospital to home. Diagnosis on Discharge: Breakthrough seizure likely secondary to medication nonadherence Discharge Specialty: Infectious Disease and Neurology Name of Discharging Facility: [facility] Date of Facility Discharge: 11.05.24-11.12.24 Date of Interactive Contact and Name of Seedling Sorter: 11.15.24 0941 Spoke with the patient. Medication Review Completed: Yes -Reviewed the patients medication list with her. EHR list is up to date. Follow Up Appointments with Providers: Primary: OTTONIEL ARIAS MD appointment with Janay Mustafa CNP 11.22.24 11 am Specialty: Neurology 12.20.24 12 pm Specialty: Nephrology TBD Review of Pending Lab/Diagnostic Tests and Plan for Completion: -AVS mention that the patient is to have a BMP and CK level repeated in 1 week but no order has been placed in Epic. Assessment and Support of Treatment Regimen Adherence and Medication Management: -Patient reports that she is doing good. -Patient denies any chest pain, shortness of breath, fever, chills or seizure activity. -Patient continues to have an occasional dry cough. -Patient is independent with her medication and treatment regime. Education Provided by [facility] to Support Self-Management, Independent Living and ADLs: -Patient lives with her . -Patient denies the need for any DME. -Medication education was provided. -Encouraged to call the office with any questions, concerns, new or worsening symptoms. -Instructed to call 911 with any sudden shortness of breath or chest pain. -Explained TCM services that are available. Explained that [facility] will be available to provide assistance for a minimum of 30 days post discharge. Yamilex Ramsey's contact information was provided and encouraged patient to call for assistance as needed. Communication with Home Health Agencies and Other Services Utilized/Needed by the Patient: -[facility] 11-15-2024 Telephone encounter Note Order were placed for labs, to have done 11/19/2024 [facility] 11-12-2024 Nurse Note AVS reviewed with patient and spouse. All questions addressed, provided vimpat script, belongings sent with patient. Patient declined staff assistance to vehicle. - Yadira Vigil RN 11/12/24 2:45 PM documented in this encounter [facility] 11-12-2024 Hospital course Narrative Inpatient Discharge Summary BRIEF OVERVIEW Admitting Provider: Marie Singh, DO Discharge Provider: Oliverio Dennis M.D Primary Care Physician at Discharge: OTTONIEL ARIAS MD [phone] Admission Date: 11/05/2024 Discharge Date: 11/12/2024 Primary Discharge Diagnosis Breakthrough seizure likely secondary to medication nonadherence. Secondary Discharge Diagnosis Acute nontraumatic rhabdomyolysis possibly related to seizures cannot rule out possibility of serotonin syndrome. Altered mental status likely multifactorial secondary to seizures/postictal/acute metabolic encephalopathy. Acute renal failure likely secondary to rhabdomyolysis. Influenza A infection New onset extremity and truncal rash likely secondary to eczema. Transaminitis likely secondary to rhabdomyolysis. Acute normocytic anemia dilutional effect with IV hydration. Hypokalemia. Hypomagnesemia Discharge Disposition Home Outpatient Follow-Up Future Appointments Date Time Provider Department Center 12/20/2024 12:00 PM Megha Bragg MD [facility] 2 Follow-up with PCP within 1-2 weeks with CBC, CMP. Follow-up with Nephrology as scheduled per them with BMP, repeat CK level within 1 week. Follow-up with Neurology as scheduled per them. Follow-up with Psychiatry within 1-2 weeks. DETAILS OF HOSPITAL STAY Presenting Problem/History of Present Illness Seizure ([facility]) [R56.9] Electrolyte abnormality [E87.8] Hospital Course Patient is a 24-year-old female with known Hx/o Seizure disorder, Depression/Anxiety, Eczema, Gastritis, former smoker initially admitted to ICU presented on 11/04/2024 with recurrent seizures, rash. Once stabilized was transferred to floor under [facility] as primary on 11/07/2024. 1. Breakthrough seizure likely secondary to medication nonadherence. Outpatient follow-up with Neurology as scheduled per them. Continue Keppra/Vimpat. Benzocaine spray t.i.d. p.r.n. for pain at the site of tongue bite. 2. Altered mental status likely multifactorial secondary to seizures/postictal/acute metabolic encephalopathy. Resolved. 3. Acute nontraumatic rhabdomyolysis possibly related to seizures rule out serotonin syndrome(fever, diarrhea, seizure). Improved with aggressive IV hydration, cleared by Nephrology to discharge with improving CK, myoglobin levels, CK had improved down to 2824 at the time of discharge. Plans per Nephrology for outpatient follow-up with BMP, repeat CK levels within 1 week. Psych gave clearance to reinitiate home medication regimen with Paxil at lower dose. 4. Acute renal failure likely secondary to rhabdomyolysis. Improving. Outpatient follow-up with Nephrology as scheduled per them. Continue IV fluids, avoid nephrotoxins medications. 5. Influenza A infection. Continue Tamiflu to complete 5 day course. 6. New onset extremity and truncal rash prior to seizure episode and admission likely secondary to eczema. Appreciate Rheumatology input. Amlactin cream b.i.d. at site of rash/Benadryl p.r.n.. 7. Transaminitis likely secondary to rhabdomyolysis. Improving. Outpatient follow-up with PCP with CMP. 8. Acute normocytic anemia rule out blood loss/dilutional effect with IV hydration. Normal vitamin B12, folate, ferritin, iron profile, total bilirubin. Improving, no active bleeding during course of hospitalization Transfuse if hemoglobin less than 7. 9. Hypokalemia, Hypomagnesemia. Replace. 10. Hx/o Depression/Anxiety. Stable. Restarted on home regimen, low-dose Paxil per psych recommendations 11. Smoking cessation. Nicotine patch. 12. DVT prophylaxis. Heparin. Rest of medical issues were stable during the course of hospitalization. CODE STATUS: FULL CODE. Consults, Imaging, Operative Procedures Performed Neurology consult. Nephrology consult. Infectious disease consult. Rheumatology consult. Psychiatry consult. Critical care consult. EKG. EEG: This EEG in the awake and asleep states is abnormal due to the presence of generalized background slowing suggestive of bi-hemispheric cerebral dysfunction that can be seen in post ictal states, metabolic, hypoxic or toxic encephalopathies, sedative medication use or primary neurological disorde CT BRAIN WITHOUT CONTRAST: No acute or subacute intracranial abnormalities. CT ABDOMEN PELVIS WITHOUT CONTRAST: Substantial liquid stool throughout much of the large bowel, suspect underlying colitis/enteritis. Similarly, distal esophageal wall thickening, correlate for clinical signs of esophagitis. No high-grade transition point to suggest obstruction. CHEST X-RAY: No acute pulmonary process. Hypoventilation with bronchovascular crowding. Physical Exam at Discharge Discharge Condition: good Pulse: 57 Resp: 16 BP: 112/50 Temp: 36.8 C (98.2 F) Weight: 92.4 kg (203 lb 11.3 oz) GENERAL: patient awake oriented x 3, does not appear in distress. HEENT: pale, no icterus, NECK: supple, CVS: s1,s2 heard no murmurs, rubs or gallops RESPIRATORY: B/l airway entry with no crackles or wheezing ABDOMINAL: soft non tender, non distended with bowel sounds heard, EXTREMITIES: no pedal edema with peripheral pulses palpable NEURO: strength 5/5 all 4 extremities, SKIN: Rash noted on upper extremity, few areas on lower extremities related to eczema has improved. PLEASE REFER TO DISCHARGE MEDICATION RECONCILIATION SHEET FOR MEDS AT DISCHARGE. DIET at DISCHARGE: Regular diet DISCHARGE TIME: 39 minutes This note was completed using a voice opener system. Every effort was made to ensure accuracy. However, inadvertent computerized opener errors may be present. documented in this encounter [employer] 11-12-2024 Miscellaneous Notes Problem: Pain Goal: Patient goal is pain score less than 4, able to rest, and participant in treatment plan as appropriate Description: INTERVENTIONS: 1. Encourage patient or legal energy conservation representative to report early pain and ask for pain medicine when needed 2. Assess pain using appropriate pain scale and include the scale used when documenting 3. Administer analgesics based on type and severity of pain and evaluate response within appropriate time frame 4. Implement non-pharmacological measures as appropriate and evaluate response 5. Consider cultural and social influences on pain and pain management 6. Notify LIP if interventions ineffective or patient reports new pain 7. Monitor vital signs including pulse ox, end-tidal CO2 based on pain intervention 8. Reassess pain per policy 9. Teach patient or legal energy conservation representative interventions for comforting Outcome: Progressing Note: Evaluation of progress towards goal: Patient reports no pain at this time, PRN medications available, pt encouraged to notify RN of any occurrences Problem: Safety Goal: Patient will be injury free during hospitalization Description: INTERVENTIONS: 1. Assess patient's risk for falls and implement fall prevention plan of care per policy 2. Provide and maintain a safe environment 3. Proper use of double Identifiers 4. Medication administration using the 5 rights 5. Hand hygiene 6. Specimens are labeled at the bedside 7. Instruct patient/ patient energy conservation representative about use of safety devices 8. Include patient/ patient energy conservation representative in decisions related to safety Outcome: Progressing Note: Evaluation of progress towards goal: Bed locked in lowest position, call light within reach, belongings at bedside, hourly rounding maintained, patient independent Problem: Knowledge Deficit Goal: Patient/patient energy conservation representative demonstrates understanding of disease process, treatment plan, medications, and discharge instructions Description: INTERVENTIONS 1. Complete learning assessment and assess knowledge base 2. Provide teaching at level of understanding 3. Provide teaching via preferred learning method(s) Outcome: Progressing Note: Evaluation of progress towards goal: Patient involved in treatment plan, verbalizes an understanding Problem: Discharge Planning Goal: Discharge to post-acute care, other facility, or home with appropriate resources Description: Patient's goal is: INTERVENTIONS 1. Conduct assessment to determine patient/family and health care team treatment goals, and need for post-acute services based on payer coverage, community resources, and patient preferences, and barriers to discharge 2. Coordinate with Social work, Care Navigation, and Utilization Review to arrange appropriate level of services according to patient's needs based on patient preference and payer coverage in collaboration with the physician and health care team 3. Address psychosocial, clinical, and financial barriers to discharge as identified in assessment in conjunction with the patient/family and health care team 4. Consult appropriate ancillary services (i.e.. PT/OT/ST, etc) as needed 5. Communicate with and update the patient/family, physician, and health care team regarding progress on the discharge plan 6. Identify discharge learning needs (meds, wound care, etc). 7. Arrange for needed discharge transportation as appropriate Outcome: Progressing Note: Evaluation of progress towards goal: Patient plans to discharge home with Problem: Moderate - High Risk Fall Score Description: Mack Fall Score of =/> 25 or indicated by [facility] Assessment Goal: Patient should be free from fall Description: Interventions: 1. [place] to environment 2. Hourly rounds addressing the 4 P's (Pain, Positioning, Possessions, Potty) 3. Clear area of hazards (spills, clutter, electrical cords, unnecessary equipment) 4. Place equipment (bed & TV controls, call light, phone, urinal) within reach 5. Encourage patient to wear glasses and hearing aides as appropriate 6. Maintain bed in lowest position 7. Lock wheels on bed/wheelchair 8. Provide adequate lighting, including night light 9. Assess need for additional bedding, food/fluids, pain med's prior to sleep/routinely 10. Provide gripper slippers or personal non-skid footwear 11. Teach patient and patient energy conservation representative to maintain environment for safety and engage in all aspects of fall prevention program 12. Remind patient to call for help before getting out of bed 13. Initiate bed/chair/exit alarms supportive devices as appropriate, (chair wedge, no-skid floor mat, raised edge mattress, hip protectors) 14. Locate patient bed assignment for optimal visualization 15. Evaluate and identify Safe Patient Handling Equipment needs 16. Provide supervision when out of bed or chair 17. Utilize gait belt as needed to assist with ambulation 18. Place adaptive equipment (cane, walker) within reach 19. Request patient energy conservation representative bring adaptive equipment/mobility aids from home or obtain and provide as needed 20. Consult pharmacy regarding effects of med's affecting mobility, cognition, and alternatives 21. Obtain physician order for PT if risk factors associated with mobility are present 22. Obtain physician order for OT as appropriate 23. Utilize diversional activities 24. Educate patient and patient energy conservation representative how to maintain a safe environment during visitation times (notify nurse prior to leaving bedside) 25. Consider appropriateness of medical or non-medical clerical assistant 26. Set up voiding schedule as appropriate (every 2 hours) Outcome: Progressing Note: Evaluation of progress towards goal: Patient remains free from falls at this time, hourly rounding maintained Problem: Neurosensory - Adult Goal: Absence of seizures Description: INTERVENTIONS 1. Anthony and maintain seizure precautions 2. Monitor for seizure activity 3. Administer anti-seizure medications as ordered 4. Monitor neurological status Outcome: Progressing Note: Evaluation of progress towards goal: Anthony and maintain seizure precautions. Monitor for seizure activity. Administer anti-seizure medications as ordered. Monitor neurological status Problem: Pain Goal: Patient goal is pain score less than 4, able to rest, and participant in treatment plan as appropriate Description: INTERVENTIONS: 1. Encourage patient or legal energy conservation representative to report early pain and ask for pain medicine when needed 2. Assess pain using appropriate pain scale and include the scale used when documenting 3. Administer analgesics based on type and severity of pain and evaluate response within appropriate time frame 4. Implement non-pharmacological measures as appropriate and evaluate response 5. Consider cultural and social influences on pain and pain management 6. Notify LIP if interventions ineffective or patient reports new pain 7. Monitor vital signs including pulse ox, end-tidal CO2 based on pain intervention 8. Reassess pain per policy 9. Teach patient or legal energy conservation representative interventions for comforting Outcome: Progressing Note: Evaluation of progress towards goal: Patient encouraged to report pain occurrence. Pain to be assessed using 0-10 scale. Pain control with scheduled & PRN pain medication. Pain to be reassessed with in an hour of intervention. Problem: Safety Goal: Patient will be injury free during hospitalization Description: INTERVENTIONS: 1. Assess patient's risk for falls and implement fall prevention plan of care per policy 2. Provide and maintain a safe environment 3. Proper use of double Identifiers 4. Medication administration using the 5 rights 5. Hand hygiene 6. Specimens are labeled at the bedside 7. Instruct patient/ patient energy conservation representative about use of safety devices 8. Include patient/ patient energy conservation representative in decisions related to safety Outcome: Progressing Note: Evaluation of progress towards goal: patient remains free from injury at this time. Safety precautions in place. Problem: Knowledge Deficit Goal: Patient/patient energy conservation representative demonstrates understanding of disease process, treatment plan, medications, and discharge instructions Description: INTERVENTIONS 1. Complete learning assessment and assess knowledge base 2. Provide teaching at level of understanding 3. Provide teaching via preferred learning method(s) Outcome: Progressing Note: Evaluation of progress towards goal: Director Of Food And Beverage Services educated pt on admission disease, medications, treatment, and discharge planning. Will continue to monitor. Problem: Discharge Planning Goal: Discharge to post-acute care, other facility, or home with appropriate resources Description: Patient's goal is: INTERVENTIONS 1. Conduct assessment to determine patient/family and health care team treatment goals, and need for post-acute services based on payer coverage, community resources, and patient preferences, and barriers to discharge 2. Coordinate with Social work, Care Navigation, and Utilization Review to arrange appropriate level of services according to patient's needs based on patient preference and payer coverage in collaboration with the physician and health care team 3. Address psychosocial, clinical, and financial barriers to discharge as identified in assessment in conjunction with the patient/family and health care team 4. Consult appropriate ancillary services (i.e.. PT/OT/ST, etc) as needed 5. Communicate with and update the patient/family, physician, and health care team regarding progress on the discharge plan 6. Identify discharge learning needs (meds, wound care, etc). 7. Arrange for needed discharge transportation as appropriate Outcome: Progressing Note: Evaluation of progress towards goal: home with spouse, discharge plans in progress Problem: Moderate - High Risk Fall Score Description: Mack Fall Score of =/> 25 or indicated by [facility] Assessment Goal: Patient should be free from fall Description: Interventions: 1. [place] to environment 2. Hourly rounds addressing the 4 P's (Pain, Positioning, Possessions, Potty) 3. Clear area of hazards (spills, clutter, electrical cords, unnecessary equipment) 4. Place equipment (bed & TV controls, call light, phone, urinal) within reach 5. Encourage patient to wear glasses and hearing aides as appropriate 6. Maintain bed in lowest position 7. Lock wheels on bed/wheelchair 8. Provide adequate lighting, including night light 9. Assess need for additional bedding, food/fluids, pain med's prior to sleep/routinely 10. Provide gripper slippers or personal non-skid footwear 11. Teach patient and patient energy conservation representative to maintain environment for safety and engage in all aspects of fall prevention program 12. Remind patient to call for help before getting out of bed 13. Initiate bed/chair/exit alarms supportive devices as appropriate, (chair wedge, no-skid floor mat, raised edge mattress, hip protectors) 14. Locate patient bed assignment for optimal visualization 15. Evaluate and identify Safe Patient Handling Equipment needs 16. Provide supervision when out of bed or chair 17. Utilize gait belt as needed to assist with ambulation 18. Place adaptive equipment (cane, walker) within reach 19. Request patient energy conservation representative bring adaptive equipment/mobility aids from home or obtain and provide as needed 20. Consult pharmacy regarding effects of med's affecting mobility, cognition, and alternatives 21. Obtain physician order for PT if risk factors associated with mobility are present 22. Obtain physician order for OT as appropriate 23. Utilize diversional activities 24. Educate patient and patient energy conservation representative how to maintain a safe environment during visitation times (notify nurse prior to leaving bedside) 25. Consider appropriateness of medical or non-medical clerical assistant 26. Set up voiding schedule as appropriate (every 2 hours) Outcome: Progressing Note: Evaluation of progress towards goal: Director Of Food And Beverage Services assessed pt fall precautions in the beginning and throughout shift. Pt room left free of clutter, pt has all belongings and call light within reach. Will continue to monitor. Problem: Neurosensory - Adult Goal: Achieves stable or improved neurological status Description: Patient's goal is: INTERVENTIONS 1. Assess for and report changes in neurological status 2. Initiate measures to prevent increased intracranial pressure 3. Maintain blood pressure and fluid volume within ordered parameters to optimize cerebral perfusion and minimize risk of hemorrhage 4. Monitor temperature, glucose, and sodium. Initiate appropriate interventions as ordered Outcome: Progressing Note: Evaluation of progress towards goal: A&O x4, q4 neuro assessments, neurologically intact Goal: Absence of seizures Description: INTERVENTIONS 1. Anthony and maintain seizure precautions 2. Monitor for seizure activity 3. Administer anti-seizure medications as ordered 4. Monitor neurological status Outcome: Progressing Note: Evaluation of progress towards goal: patient has remained free of seizures Goal: Remains free of injury related to seizures activity Description: INTERVENTIONS 1. Maintain airway, patient safety and administer oxygen as ordered 2. Monitor patient for seizure activity, document and report duration and description of seizure to LIP 3. If seizure occurs, turn patient to side and suction secretions as needed 4. Reorient patient post seizure 5. Anthony and maintain seizure precautions 6. Instruct patient/legal energy conservation representative to notify RN of any seizure activity 7. Instruct patient/legal energy conservation representative to call for assistance with activity based on assessment Outcome: Progressing Note: Evaluation of progress towards goal: patient remains free from seizures, seizure precautions in place Problem: Pain Goal: Patient goal is pain score less than 4, able to rest, and participant in treatment plan as appropriate Description: INTERVENTIONS: 1. Encourage patient or legal energy conservation representative to report early pain and ask for pain medicine when needed 2. Assess pain using appropriate pain scale and include the scale used when documenting 3. Administer analgesics based on type and severity of pain and evaluate response within appropriate time frame 4. Implement non-pharmacological measures as appropriate and evaluate response 5. Consider cultural and social influences on pain and pain management 6. Notify LIP if interventions ineffective or patient reports new pain 7. Monitor vital signs including pulse ox, end-tidal CO2 based on pain intervention 8. Reassess pain per policy 9. Teach patient or legal energy conservation representative interventions for comforting Outcome: Progressing Note: Evaluation of progress towards goal: Pain assessed q4 hours and as needed. PRN pain meds used to manage pain Problem: Safety Goal: Patient will be injury free during hospitalization Description: INTERVENTIONS: 1. Assess patient's risk for falls and implement fall prevention plan of care per policy 2. Provide and maintain a safe environment 3. Proper use of double Identifiers 4. Medication administration using the 5 rights 5. Hand hygiene 6. Specimens are labeled at the bedside 7. Instruct patient/ patient energy conservation representative about use of safety devices 8. Include patient/ patient energy conservation representative in decisions related to safety Outcome: Progressing Note: Evaluation of progress towards goal: Pt remains free of falls/ injury Problem: Knowledge Deficit Goal: Patient/patient energy conservation representative demonstrates understanding of disease process, treatment plan, medications, and discharge instructions Description: INTERVENTIONS 1. Complete learning assessment and assess knowledge base 2. Provide teaching at level of understanding 3. Provide teaching via preferred learning method(s) Outcome: Progressing Note: Evaluation of progress towards goal: Patient involved and informed about disease process, medications, and treatment plan. Director Of Food And Beverage Services to update patient throughout the shift regarding plan of care. Problem: Discharge Planning Goal: Discharge to post-acute care, other facility, or home with appropriate resources Description: Patient's goal is: INTERVENTIONS 1. Conduct assessment to determine patient/family and health care team treatment goals, and need for post-acute services based on payer coverage, community resources, and patient preferences, and barriers to discharge 2. Coordinate with Social work, Care Navigation, and Utilization Review to arrange appropriate level of services according to patient's needs based on patient preference and payer coverage in collaboration with the physician and health care team 3. Address psychosocial, clinical, and financial barriers to discharge as identified in assessment in conjunction with the patient/family and health care team 4. Consult appropriate ancillary services (i.e.. PT/OT/ST, etc) as needed 5. Communicate with and update the patient/family, physician, and health care team regarding progress on the discharge plan 6. Identify discharge learning needs (meds, wound care, etc). 7. Arrange for needed discharge transportation as appropriate Outcome: Progressing Note: Evaluation of progress towards goal: Discharge planning in progress Problem: Moderate - High Risk Fall Score Description: Mack Fall Score of =/> 25 or indicated by [facility] Assessment Goal: Patient should be free from fall Description: Interventions: 1. [place] to environment 2. Hourly rounds addressing the 4 P's (Pain, Positioning, Possessions, Potty) 3. Clear area of hazards (spills, clutter, electrical cords, unnecessary equipment) 4. Place equipment (bed & TV controls, call light, phone, urinal) within reach 5. Encourage patient to wear glasses and hearing aides as appropriate 6. Maintain bed in lowest position 7. Lock wheels on bed/wheelchair 8. Provide adequate lighting, including night light 9. Assess need for additional bedding, food/fluids, pain med's prior to sleep/routinely 10. Provide gripper slippers or personal non-skid footwear 11. Teach patient and patient energy conservation representative to maintain environment for safety and engage in all aspects of fall prevention program 12. Remind patient to call for help before getting out of bed 13. Initiate bed/chair/exit alarms supportive devices as appropriate, (chair wedge, no-skid floor mat, raised edge mattress, hip protectors) 14. Locate patient bed assignment for optimal visualization 15. Evaluate and identify Safe Patient Handling Equipment needs 16. Provide supervision when out of bed or chair 17. Utilize gait belt as needed to assist with ambulation 18. Place adaptive equipment (cane, walker) within reach 19. Request patient energy conservation representative bring adaptive equipment/mobility aids from home or obtain and provide as needed 20. Consult pharmacy regarding effects of med's affecting mobility, cognition, and alternatives 21. Obtain physician order for PT if risk factors associated with mobility are present 22. Obtain physician order for OT as appropriate 23. Utilize diversional activities 24. Educate patient and patient energy conservation representative how to maintain a safe environment during visitation times (notify nurse prior to leaving bedside) 25. Consider appropriateness of medical or non-medical clerical assistant 26. Set up voiding schedule as appropriate (every 2 hours) Outcome: Progressing Note: Evaluation of progress towards goal: Pt remains free of falls. Bed alarm maintained Problem: Neurosensory - Adult Goal: Achieves stable or improved neurological status Description: Patient's goal is: INTERVENTIONS 1. Assess for and report changes in neurological status 2. Initiate measures to prevent increased intracranial pressure 3. Maintain blood pressure and fluid volume within ordered parameters to optimize cerebral perfusion and minimize risk of hemorrhage 4. Monitor temperature, glucose, and sodium. Initiate appropriate interventions as ordered Outcome: Progressing Note: Evaluation of progress towards goal: Neuro checks completed q4 hours and as needed Goal: Absence of seizures Description: INTERVENTIONS 1. Anthony and maintain seizure precautions 2. Monitor for seizure activity 3. Administer anti-seizure medications as ordered 4. Monitor neurological status Outcome: Progressing Note: Evaluation of progress towards goal: No seizures at this time Goal: Remains free of injury related to seizures activity Description: INTERVENTIONS 1. Maintain airway, patient safety and administer oxygen as ordered 2. Monitor patient for seizure activity, document and report duration and description of seizure to LIP 3. If seizure occurs, turn patient to side and suction secretions as needed 4. Reorient patient post seizure 5. Anthony and maintain seizure precautions 6. Instruct patient/legal energy conservation representative to notify RN of any seizure activity 7. Instruct patient/legal energy conservation representative to call for assistance with activity based on assessment Outcome: Progressing Note: Evaluation of progress towards goal: Pt remains free of seizures. Seizure precautions in place DISCHARGE PLANNING NOTE Case discussed in daily transition rounds and chart reviewed by CN. Barriers to discharge include adjust medications, LR, chest xray, COVID swab, monitor CK & myoglobin, monitor BUN/Cr Discharge Plan remains: home with self care/family assist as needed. will transport patient home at discharge. CN will continue to follow and is available should any further needs arise. - KHUSHBOO ABREU 11/11/24 9:26 AM Problem: Pain Goal: Patient goal is pain score less than 4, able to rest, and participant in treatment plan as appropriate Description: INTERVENTIONS: 1. Encourage patient or legal energy conservation representative to report early pain and ask for pain medicine when needed 2. Assess pain using appropriate pain scale and include the scale used when documenting 3. Administer analgesics based on type and severity of pain and evaluate response within appropriate time frame 4. Implement non-pharmacological measures as appropriate and evaluate response 5. Consider cultural and social influences on pain and pain management 6. Notify LIP if interventions ineffective or patient reports new pain 7. Monitor vital signs including pulse ox, end-tidal CO2 based on pain intervention 8. Reassess pain per policy 9. Teach patient or legal energy conservation representative interventions for comforting Outcome: Progressing Note: Evaluation of progress towards goal: Patient encouraged to report pain occurrence. Pain to be assessed using 0-10 scale. Pain control with scheduled & PRN pain medication. Pain to be reassessed with in an hour of intervention. Problem: Safety Goal: Patient will be injury free during hospitalization Description: INTERVENTIONS: 1. Assess patient's risk for falls and implement fall prevention plan of care per policy 2. Provide and maintain a safe environment 3. Proper use of double Identifiers 4. Medication administration using the 5 rights 5. Hand hygiene 6. Specimens are labeled at the bedside 7. Instruct patient/ patient energy conservation representative about use of safety devices 8. Include patient/ patient energy conservation representative in decisions related to safety Outcome: Progressing Note: Evaluation of progress towards goal: patient remains free from injury at this time. Safety precautions in place. Problem: Knowledge Deficit Goal: Patient/patient energy conservation representative demonstrates understanding of disease process, treatment plan, medications, and discharge instructions Description: INTERVENTIONS 1. Complete learning assessment and assess knowledge base 2. Provide teaching at level of understanding 3. Provide teaching via preferred learning method(s) Outcome: Progressing Note: Evaluation of progress towards goal: Director Of Food And Beverage Services assessed pt risk for infection in the beginning and throughout shift. Pt remains afebrile. Will continue to monitor. Problem: Discharge Planning Goal: Discharge to post-acute care, other facility, or home with appropriate resources Description: Patient's goal is: INTERVENTIONS 1. Conduct assessment to determine patient/family and health care team treatment goals, and need for post-acute services based on payer coverage, community resources, and patient preferences, and barriers to discharge 2. Coordinate with Social work, Care Navigation, and Utilization Review to arrange appropriate level of services according to patient's needs based on patient preference and payer coverage in collaboration with the physician and health care team 3. Address psychosocial, clinical, and financial barriers to discharge as identified in assessment in conjunction with the patient/family and health care team 4. Consult appropriate ancillary services (i.e.. PT/OT/ST, etc) as needed 5. Communicate with and update the patient/family, physician, and health care team regarding progress on the discharge plan 6. Identify discharge learning needs (meds, wound care, etc). 7. Arrange for needed discharge transportation as appropriate Outcome: Progressing Note: Evaluation of progress towards goal: Director Of Food And Beverage Services educated pt on admission disease, medications, treatment, and discharge planning. Will continue to monitor. Problem: Moderate - High Risk Fall Score Description: Mack Fall Score of =/> 25 or indicated by [facility] Assessment Goal: Patient should be free from fall Description: Interventions: 1. [place] to environment 2. Hourly rounds addressing the 4 P's (Pain, Positioning, Possessions, Potty) 3. Clear area of hazards (spills, clutter, electrical cords, unnecessary equipment) 4. Place equipment (bed & TV controls, call light, phone, urinal) within reach 5. Encourage patient to wear glasses and hearing aides as appropriate 6. Maintain bed in lowest position 7. Lock wheels on bed/wheelchair 8. Provide adequate lighting, including night light 9. Assess need for additional bedding, food/fluids, pain med's prior to sleep/routinely 10. Provide gripper slippers or personal non-skid footwear 11. Teach patient and patient energy conservation representative to maintain environment for safety and engage in all aspects of fall prevention program 12. Remind patient to call for help before getting out of bed 13. Initiate bed/chair/exit alarms supportive devices as appropriate, (chair wedge, no-skid floor mat, raised edge mattress, hip protectors) 14. Locate patient bed assignment for optimal visualization 15. Evaluate and identify Safe Patient Handling Equipment needs 16. Provide supervision when out of bed or chair 17. Utilize gait belt as needed to assist with ambulation 18. Place adaptive equipment (cane, walker) within reach 19. Request patient energy conservation representative bring adaptive equipment/mobility aids from home or obtain and provide as needed 20. Consult pharmacy regarding effects of med's affecting mobility, cognition, and alternatives 21. Obtain physician order for PT if risk factors associated with mobility are present 22. Obtain physician order for OT as appropriate 23. Utilize diversional activities 24. Educate patient and patient energy conservation representative how to maintain a safe environment during visitation times (notify nurse prior to leaving bedside) 25. Consider appropriateness of medical or non-medical clerical assistant 26. Set up voiding schedule as appropriate (every 2 hours) Outcome: Progressing Note: Evaluation of progress towards goal: Director Of Food And Beverage Services assessed pt fall precautions in the beginning and throughout shift. Pt room left free of clutter, pt has all belongings and call light within reach. Will continue to monitor. Problem: Neurosensory - Adult Goal: Achieves stable or improved neurological status Description: Patient's goal is: INTERVENTIONS 1. Assess for and report changes in neurological status 2. Initiate measures to prevent increased intracranial pressure 3. Maintain blood pressure and fluid volume within ordered parameters to optimize cerebral perfusion and minimize risk of hemorrhage 4. Monitor temperature, glucose, and sodium. Initiate appropriate interventions as ordered Outcome: Progressing Note: Evaluation of progress towards goal: A&O x4, q4 neuro assessments, neurologically intact Goal: Absence of seizures Description: INTERVENTIONS 1. Anthony and maintain seizure precautions 2. Monitor for seizure activity 3. Administer anti-seizure medications as ordered 4. Monitor neurological status Outcome: Progressing Note: Evaluation of progress towards goal: patient has remained free of seizures Goal: Remains free of injury related to seizures activity Description: INTERVENTIONS 1. Maintain airway, patient safety and administer oxygen as ordered 2. Monitor patient for seizure activity, document and report duration and description of seizure to LIP 3. If seizure occurs, turn patient to side and suction secretions as needed 4. Reorient patient post seizure 5. Anthony and maintain seizure precautions 6. Instruct patient/legal energy conservation representative to notify RN of any seizure activity 7. Instruct patient/legal energy conservation representative to call for assistance with activity based on assessment Outcome: Progressing Note: Evaluation of progress towards goal: patient remains free from seizures Problem: Pain Goal: Patient goal is pain score less than 4, able to rest, and participant in treatment plan as appropriate Description: INTERVENTIONS: 1. Encourage patient or legal energy conservation representative to report early pain and ask for pain medicine when needed 2. Assess pain using appropriate pain scale and include the scale used when documenting 3. Administer analgesics based on type and severity of pain and evaluate response within appropriate time frame 4. Implement non-pharmacological measures as appropriate and evaluate response 5. Consider cultural and social influences on pain and pain management 6. Notify LIP if interventions ineffective or patient reports new pain 7. Monitor vital signs including pulse ox, end-tidal CO2 based on pain intervention 8. Reassess pain per policy 9. Teach patient or legal energy conservation representative interventions for comforting Outcome: Progressing Note: Evaluation of progress towards goal: patient comfort maintained, will continue to assess Problem: Safety Goal: Patient will be injury free during hospitalization Description: INTERVENTIONS: 1. Assess patient's risk for falls and implement fall prevention plan of care per policy 2. Provide and maintain a safe environment 3. Proper use of double Identifiers 4. Medication administration using the 5 rights 5. Hand hygiene 6. Specimens are labeled at the bedside 7. Instruct patient/ patient energy conservation representative about use of safety devices 8. Include patient/ patient energy conservation representative in decisions related to safety Outcome: Progressing Note: Evaluation of progress towards goal: Patient free from injury, will continue to provide a clean environment, personal objects in reach, and a well light room Problem: Infection Goal: Absence of infection during hospitalization Description: INTERVENTIONS 1. Assess and monitor for signs and symptoms of infection. 2. Monitor lab/diagnostic results. 3. Monitor all insertion sites i.e., indwelling lines, tubes and drains. 4. Monitor endotracheal (as able) and nasal secretions for changes in amount and color. 5. Administer medications as ordered. 6. Instruct and encourage patient and family to use good hand hygiene technique. 7. Identify and instruct patient/patient energy conservation representative in use of appropriate isolation precautions for identified infection/symptoms. 8. Provide and discuss with patient/patient energy conservation representative on educational MDRO sheet. 9. Encourage and monitor nutritional status daily and consult clinical business analyst if indicated. 10. Implement neutropenic guidelines as needed. Outcome: Completed Note: Evaluation of progress towards goal: patient free of signs of infection Problem: Knowledge Deficit Goal: Patient/patient energy conservation representative demonstrates understanding of disease process, treatment plan, medications, and discharge instructions Description: INTERVENTIONS 1. Complete learning assessment and assess knowledge base 2. Provide teaching at level of understanding 3. Provide teaching via preferred learning method(s) Outcome: Progressing Note: Evaluation of progress towards goal: Patient kept updated on plan of care, will continue to keep updated as new information arises Problem: Discharge Planning Goal: Discharge to post-acute care, other facility, or home with appropriate resources Description: Patient's goal is: INTERVENTIONS 1. Conduct assessment to determine patient/family and health care team treatment goals, and need for post-acute services based on payer coverage, community resources, and patient preferences, and barriers to discharge 2. Coordinate with Social work, Care Navigation, and Utilization Review to arrange appropriate level of services according to patient's needs based on patient preference and payer coverage in collaboration with the physician and health care team 3. Address psychosocial, clinical, and financial barriers to discharge as identified in assessment in conjunction with the patient/family and health care team 4. Consult appropriate ancillary services (i.e.. PT/OT/ST, etc) as needed 5. Communicate with and update the patient/family, physician, and health care team regarding progress on the discharge plan 6. Identify discharge learning needs (meds, wound care, etc). 7. Arrange for needed discharge transportation as appropriate Outcome: Progressing Note: Evaluation of progress towards goal: Patient kept updated on discharge process, will continue to keep updated as new information arises Problem: Moderate - High Risk Fall Score Description: Mack Fall Score of =/> 25 or indicated by [facility] Assessment Goal: Patient should be free from fall Description: Interventions: 1. [place] to environment 2. Hourly rounds addressing the 4 P's (Pain, Positioning, Possessions, Potty) 3. Clear area of hazards (spills, clutter, electrical cords, unnecessary equipment) 4. Place equipment (bed & TV controls, call light, phone, urinal) within reach 5. Encourage patient to wear glasses and hearing aides as appropriate 6. Maintain bed in lowest position 7. Lock wheels on bed/wheelchair 8. Provide adequate lighting, including night light 9. Assess need for additional bedding, food/fluids, pain med's prior to sleep/routinely 10. Provide gripper slippers or personal non-skid footwear 11. Teach patient and patient energy conservation representative to maintain environment for safety and engage in all aspects of fall prevention program 12. Remind patient to call for help before getting out of bed 13. Initiate bed/chair/exit alarms supportive devices as appropriate, (chair wedge, no-skid floor mat, raised edge mattress, hip protectors) 14. Locate patient bed assignment for optimal visualization 15. Evaluate and identify Safe Patient Handling Equipment needs 16. Provide supervision when out of bed or chair 17. Utilize gait belt as needed to assist with ambulation 18. Place adaptive equipment (cane, walker) within reach 19. Request patient energy conservation representative bring adaptive equipment/mobility aids from home or obtain and provide as needed 20. Consult pharmacy regarding effects of med's affecting mobility, cognition, and alternatives 21. Obtain physician order for PT if risk factors associated with mobility are present 22. Obtain physician order for OT as appropriate 23. Utilize diversional activities 24. Educate patient and patient energy conservation representative how to maintain a safe environment during visitation times (notify nurse prior to leaving bedside) 25. Consider appropriateness of medical or non-medical clerical assistant 26. Set up voiding schedule as appropriate (every 2 hours) Outcome: Progressing Note: Evaluation of progress towards goal: Patient free from injury, will continue to provide a clean environment, personal objects in reach, and a well light room Problem: Multi-Drug Resistant Organism / Rule-Out Infection Prevention Goal: Prevent transmission of infection Description: INTERVENTIONS 1. Place patient in private room or in room with patient with same disease 2. Discard single-use items 3. Clean reusable equipment between patients 4. Wear gloves for direct and indirect contact with patient or contaminants 5. Change gloves between tasks and procedures 6. Wash hands before and after caring for each patient 7. Wear appropriate personal protective equipment in relation to the indicated isolation type 8. Place appropriate isolation signage on patient's door 9. Provide patient/ patient energy conservation representative with isolation education. Outcome: Completed Note: Evaluation of progress towards goal: patient free from signs of infection Problem: Neurosensory - Adult Goal: Achieves stable or improved neurological status Description: Patient's goal is: INTERVENTIONS 1. Assess for and report changes in neurological status 2. Initiate measures to prevent increased intracranial pressure 3. Maintain blood pressure and fluid volume within ordered parameters to optimize cerebral perfusion and minimize risk of hemorrhage 4. Monitor temperature, glucose, and sodium. Initiate appropriate interventions as ordered Outcome: Progressing Note: Evaluation of progress towards goal: patient alert and oriented x4 Goal: Absence of seizures Description: INTERVENTIONS 1. Anthony and maintain seizure precautions 2. Monitor for seizure activity 3. Administer anti-seizure medications as ordered 4. Monitor neurological status Outcome: Progressing Note: Evaluation of progress towards goal: patient free from seizures Goal: Remains free of injury related to seizures activity Description: INTERVENTIONS 1. Maintain airway, patient safety and administer oxygen as ordered 2. Monitor patient for seizure activity, document and report duration and description of seizure to LIP 3. If seizure occurs, turn patient to side and suction secretions as needed 4. Reorient patient post seizure 5. Anthony and maintain seizure precautions 6. Instruct patient/legal energy conservation representative to notify RN of any seizure activity 7. Instruct patient/legal energy conservation representative to call for assistance with activity based on assessment Outcome: Progressing Note: Evaluation of progress towards goal: patient free from seizures Problem: Neurosensory - Adult Goal: Absence of seizures Description: INTERVENTIONS 1. Anthony and maintain seizure precautions 2. Monitor for seizure activity 3. Administer anti-seizure medications as ordered 4. Monitor neurological status Outcome: Progressing Note: Evaluation of progress towards goal: patient free from seizures Problem: Neurosensory - Adult Goal: Remains free of injury related to seizures activity Description: INTERVENTIONS 1. Maintain airway, patient safety and administer oxygen as ordered 2. Monitor patient for seizure activity, document and report duration and description of seizure to LIP 3. If seizure occurs, turn patient to side and suction secretions as needed 4. Reorient patient post seizure 5. Anthony and maintain seizure precautions 6. Instruct patient/legal energy conservation representative to notify RN of any seizure activity 7. Instruct patient/legal energy conservation representative to call for assistance with activity based on assessment Outcome: Progressing Note: Evaluation of progress towards goal: patient free from seizures DISCHARGE PLANNING NOTE Case discussed in daily transition rounds and chart reviewed by CN. Barriers to discharge include LR, monitor BUN/Cr Discharge Plan remains: home with self care/ assist as needed. CN will continue to follow and is available should any further needs arise. - KHUSHBOO ABREU 11/10/24 9:38 AM Problem: Pain Goal: Patient goal is pain score less than 4, able to rest, and participant in treatment plan as appropriate Description: INTERVENTIONS: 1. Encourage patient or legal energy conservation representative to report early pain and ask for pain medicine when needed 2. Assess pain using appropriate pain scale and include the scale used when documenting 3. Administer analgesics based on type and severity of pain and evaluate response within appropriate time frame 4. Implement non-pharmacological measures as appropriate and evaluate response 5. Consider cultural and social influences on pain and pain management 6. Notify LIP if interventions ineffective or patient reports new pain 7. Monitor vital signs including pulse ox, end-tidal CO2 based on pain intervention 8. Reassess pain per policy 9. Teach patient or legal energy conservation representative interventions for comforting Outcome: Progressing Note: Evaluation of progress towards goal: Patient encouraged to report pain on a scale from 1-10. PRN pain medications available Problem: Safety Goal: Patient will be injury free during hospitalization Description: INTERVENTIONS: 1. Assess patient's risk for falls and implement fall prevention plan of care per policy 2. Provide and maintain a safe environment 3. Proper use of double Identifiers 4. Medication administration using the 5 rights 5. Hand hygiene 6. Specimens are labeled at the bedside 7. Instruct patient/ patient energy conservation representative about use of safety devices 8. Include patient/ patient energy conservation representative in decisions related to safety Outcome: Progressing Note: Evaluation of progress towards goal: Pt. Remains injury free this hospitalization, safety precautions maintained. Seizure precautions remain in place Problem: Infection Goal: Absence of infection during hospitalization Description: INTERVENTIONS 1. Assess and monitor for signs and symptoms of infection. 2. Monitor lab/diagnostic results. 3. Monitor all insertion sites i.e., indwelling lines, tubes and drains. 4. Monitor endotracheal (as able) and nasal secretions for changes in amount and color. 5. Administer medications as ordered. 6. Instruct and encourage patient and family to use good hand hygiene technique. 7. Identify and instruct patient/patient energy conservation representative in use of appropriate isolation precautions for identified infection/symptoms. 8. Provide and discuss with patient/patient energy conservation representative on educational MDRO sheet. 9. Encourage and monitor nutritional status daily and consult clinical business analyst if indicated. 10. Implement neutropenic guidelines as needed. Outcome: Progressing Note: Evaluation of progress towards goal: No S/S of infection at this time Problem: Knowledge Deficit Goal: Patient/patient energy conservation representative demonstrates understanding of disease process, treatment plan, medications, and discharge instructions Description: INTERVENTIONS 1. Complete learning assessment and assess knowledge base 2. Provide teaching at level of understanding 3. Provide teaching via preferred learning method(s) Outcome: Progressing Note: Evaluation of progress towards goal: Pt. Education on disease process, plan of care and medications. Pt. Verbalized understanding and all questions were answered. Problem: Discharge Planning Goal: Discharge to post-acute care, other facility, or home with appropriate resources Description: Patient's goal is: INTERVENTIONS 1. Conduct assessment to determine patient/family and health care team treatment goals, and need for post-acute services based on payer coverage, community resources, and patient preferences, and barriers to discharge 2. Coordinate with Social work, Care Navigation, and Utilization Review to arrange appropriate level of services according to patient's needs based on patient preference and payer coverage in collaboration with the physician and health care team 3. Address psychosocial, clinical, and financial barriers to discharge as identified in assessment in conjunction with the patient/family and health care team 4. Consult appropriate ancillary services (i.e.. PT/OT/ST, etc) as needed 5. Communicate with and update the patient/family, physician, and health care team regarding progress on the discharge plan 6. Identify discharge learning needs (meds, wound care, etc). 7. Arrange for needed discharge transportation as appropriate Outcome: Progressing Note: Evaluation of progress towards goal: Discharge plan is progressing Problem: Multi-Drug Resistant Organism / Rule-Out Infection Prevention Goal: Prevent transmission of infection Description: INTERVENTIONS 1. Place patient in private room or in room with patient with same disease 2. Discard single-use items 3. Clean reusable equipment between patients 4. Wear gloves for direct and indirect contact with patient or contaminants 5. Change gloves between tasks and procedures 6. Wash hands before and after caring for each patient 7. Wear appropriate personal protective equipment in relation to the indicated isolation type 8. Place appropriate isolation signage on patient's door 9. Provide patient/ patient energy conservation representative with isolation education. Outcome: Progressing Note: Evaluation of progress towards goal: Hand hygiene being performed before and after patient care Problem: Moderate - High Risk Fall Score Description: Mack Fall Score of =/> 25 or indicated by [facility] Assessment Goal: Patient should be free from fall Description: Interventions: 1. [place] to environment 2. Hourly rounds addressing the 4 P's (Pain, Positioning, Possessions, Potty) 3. Clear area of hazards (spills, clutter, electrical cords, unnecessary equipment) 4. Place equipment (bed & TV controls, call light, phone, urinal) within reach 5. Encourage patient to wear glasses and hearing aides as appropriate 6. Maintain bed in lowest position 7. Lock wheels on bed/wheelchair 8. Provide adequate lighting, including night light 9. Assess need for additional bedding, food/fluids, pain med's prior to sleep/routinely 10. Provide gripper slippers or personal non-skid footwear 11. Teach patient and patient energy conservation representative to maintain environment for safety and engage in all aspects of fall prevention program 12. Remind patient to call for help before getting out of bed 13. Initiate bed/chair/exit alarms supportive devices as appropriate, (chair wedge, no-skid floor mat, raised edge mattress, hip protectors) 14. Locate patient bed assignment for optimal visualization 15. Evaluate and identify Safe Patient Handling Equipment needs 16. Provide supervision when out of bed or chair 17. Utilize gait belt as needed to assist with ambulation 18. Place adaptive equipment (cane, walker) within reach 19. Request patient energy conservation representative bring adaptive equipment/mobility aids from home or obtain and provide as needed 20. Consult pharmacy regarding effects of med's affecting mobility, cognition, and alternatives 21. Obtain physician order for PT if risk factors associated with mobility are present 22. Obtain physician order for OT as appropriate 23. Utilize diversional activities 24. Educate patient and patient energy conservation representative how to maintain a safe environment during visitation times (notify nurse prior to leaving bedside) 25. Consider appropriateness of medical or non-medical clerical assistant 26. Set up voiding schedule as appropriate (every 2 hours) Outcome: Progressing Note: Evaluation of progress towards goal: Pt. Remains fall free this hospitalization. Safety precautions maintained. Seizure precautions remain in place Problem: Neurosensory - Adult Goal: Achieves stable or improved neurological status Description: Patient's goal is: INTERVENTIONS 1. Assess for and report changes in neurological status 2. Initiate measures to prevent increased intracranial pressure 3. Maintain blood pressure and fluid volume within ordered parameters to optimize cerebral perfusion and minimize risk of hemorrhage 4. Monitor temperature, glucose, and sodium. Initiate appropriate interventions as ordered Outcome: Progressing Note: Evaluation of progress towards goal: Neurological status remains stable. Q4 neuro checks Goal: Absence of seizures Description: INTERVENTIONS 1. Anthony and maintain seizure precautions 2. Monitor for seizure activity 3. Administer anti-seizure medications as ordered 4. Monitor neurological status Outcome: Progressing Note: Evaluation of progress towards goal: Patient remains free of seizures at this time Goal: Remains free of injury related to seizures activity Description: INTERVENTIONS 1. Maintain airway, patient safety and administer oxygen as ordered 2. Monitor patient for seizure activity, document and report duration and description of seizure to LIP 3. If seizure occurs, turn patient to side and suction secretions as needed 4. Reorient patient post seizure 5. Anthony and maintain seizure precautions 6. Instruct patient/legal energy conservation representative to notify RN of any seizure activity 7. Instruct patient/legal energy conservation representative to call for assistance with activity based on assessment Outcome: Progressing Note: Evaluation of progress towards goal: Patient remains free of injury from seizures at this time. Seizure precautions remain in place Problem: Neurosensory - Adult Goal: Achieves maximal functionality and self care Description: Patient's goal is: INTERVENTIONS 1. Assess, monitor and assist patient for optimal swallowing and airway patency with patient fatigue and changes in neurological status 2. Encourage and assist patient to increase activity and self care with guidance from PT/OT/ST 3. Encourage visually impaired, hearing impaired and aphasic patients to use assistive/communication devices Outcome: Completed Note: Evaluation of progress towards goal: Completed Problem: Pain Goal: Patient goal is pain score less than 4, able to rest, and participant in treatment plan as appropriate Description: INTERVENTIONS: 1. Encourage patient or legal energy conservation representative to report early pain and ask for pain medicine when needed 2. Assess pain using appropriate pain scale and include the scale used when documenting 3. Administer analgesics based on type and severity of pain and evaluate response within appropriate time frame 4. Implement non-pharmacological measures as appropriate and evaluate response 5. Consider cultural and social influences on pain and pain management 6. Notify LIP if interventions ineffective or patient reports new pain 7. Monitor vital signs including pulse ox, end-tidal CO2 based on pain intervention 8. Reassess pain per policy 9. Teach patient or legal energy conservation representative interventions for comforting Outcome: Progressing Note: Evaluation of progress towards goal: Patient denies pain during this shift. Problem: Safety Goal: Patient will be injury free during hospitalization Description: INTERVENTIONS: 1. Assess patient's risk for falls and implement fall prevention plan of care per policy 2. Provide and maintain a safe environment 3. Proper use of double Identifiers 4. Medication administration using the 5 rights 5. Hand hygiene 6. Specimens are labeled at the bedside 7. Instruct patient/ patient energy conservation representative about use of safety devices 8. Include patient/ patient energy conservation representative in decisions related to safety Outcome: Progressing Note: Evaluation of progress towards goal: No falls or injuries during this shift. Bed is locked, in low position, and bedside rails are up x3. Will continue to monitor patient frequently and maintain a safe environment. Problem: Infection Goal: Absence of infection during hospitalization Description: INTERVENTIONS 1. Assess and monitor for signs and symptoms of infection. 2. Monitor lab/diagnostic results. 3. Monitor all insertion sites i.e., indwelling lines, tubes and drains. 4. Monitor endotracheal (as able) and nasal secretions for changes in amount and color. 5. Administer medications as ordered. 6. Instruct and encourage patient and family to use good hand hygiene technique. 7. Identify and instruct patient/patient energy conservation representative in use of appropriate isolation precautions for identified infection/symptoms. 8. Provide and discuss with patient/patient energy conservation representative on educational MDRO sheet. 9. Encourage and monitor nutritional status daily and consult clinical business analyst if indicated. 10. Implement neutropenic guidelines as needed. Outcome: Progressing Note: Evaluation of progress towards goal: Patient is afebrile at this time with no signs or symptoms of infection. Will continue to monitor for infection and keep a clean environment for patient. Problem: Knowledge Deficit Goal: Patient/patient energy conservation representative demonstrates understanding of disease process, treatment plan, medications, and discharge instructions Description: INTERVENTIONS 1. Complete learning assessment and assess knowledge base 2. Provide teaching at level of understanding 3. Provide teaching via preferred learning method(s) Outcome: Progressing Note: Evaluation of progress towards goal: Assessment of best learning methods and knowledge base completed.Teaching provided at patient's and patient's family's level of understanding, and via patient's and patient's family's preferred learning methods when applicable. Problem: Discharge Planning Goal: Discharge to post-acute care, other facility, or home with appropriate resources Description: Patient's goal is: INTERVENTIONS 1. Conduct assessment to determine patient/family and health care team treatment goals, and need for post-acute services based on payer coverage, community resources, and patient preferences, and barriers to discharge 2. Coordinate with Social work, Care Navigation, and Utilization Review to arrange appropriate level of services according to patient's needs based on patient preference and payer coverage in collaboration with the physician and health care team 3. Address psychosocial, clinical, and financial barriers to discharge as identified in assessment in conjunction with the patient/family and health care team 4. Consult appropriate ancillary services (i.e.. PT/OT/ST, etc) as needed 5. Communicate with and update the patient/family, physician, and health care team regarding progress on the discharge plan 6. Identify discharge learning needs (meds, wound care, etc). 7. Arrange for needed discharge transportation as appropriate Outcome: Progressing Note: Evaluation of progress towards goal: Patient does not qualify for discharge at this time. Discharge planning is readdressed every shift by providers and primary nurse. Problem: Moderate - High Risk Fall Score Description: Mack Fall Score of =/> 25 or indicated by [facility] Assessment Goal: Patient should be free from fall Description: Interventions: 1. [place] to environment 2. Hourly rounds addressing the 4 P's (Pain, Positioning, Possessions, Potty) 3. Clear area of hazards (spills, clutter, electrical cords, unnecessary equipment) 4. Place equipment (bed & TV controls, call light, phone, urinal) within reach 5. Encourage patient to wear glasses and hearing aides as appropriate 6. Maintain bed in lowest position 7. Lock wheels on bed/wheelchair 8. Provide adequate lighting, including night light 9. Assess need for additional bedding, food/fluids, pain med's prior to sleep/routinely 10. Provide gripper slippers or personal non-skid footwear 11. Teach patient and patient energy conservation representative to maintain environment for safety and engage in all aspects of fall prevention program 12. Remind patient to call for help before getting out of bed 13. Initiate bed/chair/exit alarms supportive devices as appropriate, (chair wedge, no-skid floor mat, raised edge mattress, hip protectors) 14. Locate patient bed assignment for optimal visualization 15. Evaluate and identify Safe Patient Handling Equipment needs 16. Provide supervision when out of bed or chair 17. Utilize gait belt as needed to assist with ambulation 18. Place adaptive equipment (cane, walker) within reach 19. Request patient energy conservation representative bring adaptive equipment/mobility aids from home or obtain and provide as needed 20. Consult pharmacy regarding effects of med's affecting mobility, cognition, and alternatives 21. Obtain physician order for PT if risk factors associated with mobility are present 22. Obtain physician order for OT as appropriate 23. Utilize diversional activities 24. Educate patient and patient energy conservation representative how to maintain a safe environment during visitation times (notify nurse prior to leaving bedside) 25. Consider appropriateness of medical or non-medical clerical assistant 26. Set up voiding schedule as appropriate (every 2 hours) Outcome: Progressing Note: Evaluation of progress towards goal: No falls or injuries during this shift. Bed is locked, in low position, and bedside rails are up x3. Will continue to monitor patient frequently and maintain a safe environment. Chart reviewed patient and interviewed Patient denies any symptoms of serotonin syndrome on exam today. She is talking more about past treatment. On exam she is pleasant and cooperative. There are no thoughts of harming self or others. There is no evidence of psychosis. Eye contact is good. Thought process is well organized. Memory for recent and remote events is intact. From psychiatric viewpoint patient is stable for discharge. Recommend that she resume outpatient treatment. Problem: Pain Goal: Patient goal is pain score less than 4, able to rest, and participant in treatment plan as appropriate Description: INTERVENTIONS: 1. Encourage patient or legal energy conservation representative to report early pain and ask for pain medicine when needed 2. Assess pain using appropriate pain scale and include the scale used when documenting 3. Administer analgesics based on type and severity of pain and evaluate response within appropriate time frame 4. Implement non-pharmacological measures as appropriate and evaluate response 5. Consider cultural and social influences on pain and pain management 6. Notify LIP if interventions ineffective or patient reports new pain 7. Monitor vital signs including pulse ox, end-tidal CO2 based on pain intervention 8. Reassess pain per policy 9. Teach patient or legal energy conservation representative interventions for comforting Outcome: Progressing Note: Evaluation of progress towards goal: Patient verbalizes pain is well controlled this shift. Problem: Safety Goal: Patient will be injury free during hospitalization Description: INTERVENTIONS: 1. Assess patient's risk for falls and implement fall prevention plan of care per policy 2. Provide and maintain a safe environment 3. Proper use of double Identifiers 4. Medication administration using the 5 rights 5. Hand hygiene 6. Specimens are labeled at the bedside 7. Instruct patient/ patient energy conservation representative about use of safety devices 8. Include patient/ patient energy conservation representative in decisions related to safety Outcome: Progressing Note: Evaluation of progress towards goal: patient free from falls and injury Problem: Infection Goal: Absence of infection during hospitalization Description: INTERVENTIONS 1. Assess and monitor for signs and symptoms of infection. 2. Monitor lab/diagnostic results. 3. Monitor all insertion sites i.e., indwelling lines, tubes and drains. 4. Monitor endotracheal (as able) and nasal secretions for changes in amount and color. 5. Administer medications as ordered. 6. Instruct and encourage patient and family to use good hand hygiene technique. 7. Identify and instruct patient/patient energy conservation representative in use of appropriate isolation precautions for identified infection/symptoms. 8. Provide and discuss with patient/patient energy conservation representative on educational MDRO sheet. 9. Encourage and monitor nutritional status daily and consult clinical business analyst if indicated. 10. Implement neutropenic guidelines as needed. Outcome: Progressing Note: Evaluation of progress towards goal: Patient displays no signs of infection. Able to demonstrate appropriate hand hygiene.Will continue to monitor patient, labs, and mews score. Problem: Knowledge Deficit Goal: Patient/patient energy conservation representative demonstrates understanding of disease process, treatment plan, medications, and discharge instructions Description: INTERVENTIONS 1. Complete learning assessment and assess knowledge base 2. Provide teaching at level of understanding 3. Provide teaching via preferred learning method(s) Outcome: Progressing Note: Evaluation of progress towards goal: Continuing patient and family education this shift and PRN Problem: Discharge Planning Goal: Discharge to post-acute care, other facility, or home with appropriate resources Description: Patient's goal is: INTERVENTIONS 1. Conduct assessment to determine patient/family and health care team treatment goals, and need for post-acute services based on payer coverage, community resources, and patient preferences, and barriers to discharge 2. Coordinate with Social work, Care Navigation, and Utilization Review to arrange appropriate level of services according to patient's needs based on patient preference and payer coverage in collaboration with the physician and health care team 3. Address psychosocial, clinical, and financial barriers to discharge as identified in assessment in conjunction with the patient/family and health care team 4. Consult appropriate ancillary services (i.e.. PT/OT/ST, etc) as needed 5. Communicate with and update the patient/family, physician, and health care team regarding progress on the discharge plan 6. Identify discharge learning needs (meds, wound care, etc). 7. Arrange for needed discharge transportation as appropriate Outcome: Progressing Note: Evaluation of progress towards goal: Patient has transfer orders placed. Plan to return home. Problem: Moderate - High Risk Fall Score Description: Mack Fall Score of =/> 25 or indicated by [facility] Assessment Goal: Patient should be free from fall Description: Interventions: 1. [place] to environment 2. Hourly rounds addressing the 4 P's (Pain, Positioning, Possessions, Potty) 3. Clear area of hazards (spills, clutter, electrical cords, unnecessary equipment) 4. Place equipment (bed & TV controls, call light, phone, urinal) within reach 5. Encourage patient to wear glasses and hearing aides as appropriate 6. Maintain bed in lowest position 7. Lock wheels on bed/wheelchair 8. Provide adequate lighting, including night light 9. Assess need for additional bedding, food/fluids, pain med's prior to sleep/routinely 10. Provide gripper slippers or personal non-skid footwear 11. Teach patient and patient energy conservation representative to maintain environment for safety and engage in all aspects of fall prevention program 12. Remind patient to call for help before getting out of bed 13. Initiate bed/chair/exit alarms supportive devices as appropriate, (chair wedge, no-skid floor mat, raised edge mattress, hip protectors) 14. Locate patient bed assignment for optimal visualization 15. Evaluate and identify Safe Patient Handling Equipment needs 16. Provide supervision when out of bed or chair 17. Utilize gait belt as needed to assist with ambulation 18. Place adaptive equipment (cane, walker) within reach 19. Request patient energy conservation representative bring adaptive equipment/mobility aids from home or obtain and provide as needed 20. Consult pharmacy regarding effects of med's affecting mobility, cognition, and alternatives 21. Obtain physician order for PT if risk factors associated with mobility are present 22. Obtain physician order for OT as appropriate 23. Utilize diversional activities 24. Educate patient and patient energy conservation representative how to maintain a safe environment during visitation times (notify nurse prior to leaving bedside) 25. Consider appropriateness of medical or non-medical clerical assistant 26. Set up voiding schedule as appropriate (every 2 hours) Outcome: Progressing Note: Evaluation of progress towards goal: Patient fall risk safety measures have been implemented. Continuing to monitor patient. Problem: Neurosensory - Adult Goal: Absence of seizures Description: INTERVENTIONS 1. Anthony and maintain seizure precautions 2. Monitor for seizure activity 3. Administer anti-seizure medications as ordered 4. Monitor neurological status Outcome: Progressing Note: Evaluation of progress towards goal: Patient is receiving antiseizure medications. Chart reviewed patient and interviewed discussed at length with nurse. Patient admitted with sepsis and question of serotonin syndrome. She gives history of past psychiatric treatment. She states that she had been hospitalized at [facility] in [place] last summer. She has continued with outpatient treatment at [facility] in [place]. She has been seeing a psychiatric nurse practitioner and has also seen a therapist on an irregular basis. She has been on multiple psychotropic medications including Paxil, Effexor, olanzapine, Lamictal and Abilify. She states that she had been diagnosed with bipolar disorder at [facility]. She states family history is positive for psychiatric illness. Patient lives with her . She is a high-school graduate. She is currently unemployed. 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 Her is supportive of her. She denies history of abuse. She denies substance use On exam she is pleasant and cooperative. She does not exhibit any muscle rigidity. There are no current symptoms of serotonin syndrome. There are no hallucinations or delusions. Mood is mildly depressed. There is no pressured speech or flight of ideas. Thought process is well organized. She is oriented. Memory for recent and remote events is intact. Intelligence is within average range. Impression: Bipolar disorder Discussion: Patient is on multiple medications which could possibly contribute to serotonin syndrome. She is on multiple medications also that will lower the seizure threshold. Recommend that Paxil be decreased. There is no indication for inpatient psychiatric treatment. Recommend that she involve with outpatient psychiatric treatment. Images from the original note were not included. DISCHARGE PLANNING NOTE Director Of Food And Beverage Services met with patient and , introduced self, and explained role. Patient is alert and oriented, sitting in bed, eating lunch, cooperative. Supportive at bedside. Patient and educated on safe discharge plan. Pt admitted 11/05/2024 with Seizure ([facility]) [R56.9] per chart review. Consults: Infectious Disease, Nephrology, Neurology, Psychiatry, and Rheumatology Discharge Barriers per Daily Transition Rounds and chart review: LR, medication adjustment, IV Mag, IV K Past Medical History: Diagnosis Date Anxiety March 2013 Depression March 2013 Eczema 2009 GERD (gastroesophageal reflux disease) Seizures ([facility] Visual impairment 2004 Prior to admission patient was living with spouse/significant other and self care. Medical equipment patient used prior to admission includes: None. Patient was active and independent prior to admission. Patient denies need for transportation/ food/ prescription medication assistance resources. Patient is planning to transition home with self care/family assist as needed. PCP: OTTONIEL ARIAS MD Pharmacy: [facility] [place] PCP and pharmacy confirmed with patient. CN offered to assist with follow up appointment arrangements; patient declines - states will self-schedule follow up appointments. OTTONIEL ARIAS MD added to Follow Up Providers for Summary of Care communication. Current discharge plan is: home with self care/family assist as needed Services Requested: Services Requested Patient expects to be discharged to:: home Discharge Disposition: Home with self care Goals: Goals Return home (pt-stated) Evaluation of progress towards goal: Plan to return home with spouse. Will continue to follow as plan of care develops. CN discussed benefits and importance of medication compliance and follow ups. Please feel free to reach out for any discharge planning questions. - KHUSHBOO ABREU 11/08/24 2:49 PM Greeted patient, introduced self and explained role as staff psychiatrist/liaison. Began an interview in order to complete a psychosocial assessment. Patient is a 24 year old female here for a workup after having a seizure. Psych consulted to review medications as there is a concern for serotonin syndrome. When asked patient stated she is neither suicidal nor homicidal. Per patient she is treated for depression at [facility] in [place] where she is prescribed her psych medications. Patient has been going there for years and feels her moods have been well managed. However she will of course consider any changes in medications if appropriate. When asked patient stated she has a follow up appointment already scheduled with her mental health provider next week and declined help from to assist in coordinating an appointment. Will otherwise stand by ready to assist in setting up any additional mental health services should those be recommended. - KHUSHBOO Rowe 11/08/24 2:40 PM Problem: Pain Goal: Patient goal is pain score less than 4, able to rest, and participant in treatment plan as appropriate Description: INTERVENTIONS: 1. Encourage patient or legal energy conservation representative to report early pain and ask for pain medicine when needed 2. Assess pain using appropriate pain scale and include the scale used when documenting 3. Administer analgesics based on type and severity of pain and evaluate response within appropriate time frame 4. Implement non-pharmacological measures as appropriate and evaluate response 5. Consider cultural and social influences on pain and pain management 6. Notify LIP if interventions ineffective or patient reports new pain 7. Monitor vital signs including pulse ox, end-tidal CO2 based on pain intervention 8. Reassess pain per policy 9. Teach patient or legal energy conservation representative interventions for comforting Outcome: Progressing Note: Evaluation of progress towards goal: Patient denies pain at this time. Problem: Safety Goal: Patient will be injury free during hospitalization Description: INTERVENTIONS: 1. Assess patient's risk for falls and implement fall prevention plan of care per policy 2. Provide and maintain a safe environment 3. Proper use of double Identifiers 4. Medication administration using the 5 rights 5. Hand hygiene 6. Specimens are labeled at the bedside 7. Instruct patient/ patient energy conservation representative about use of safety devices 8. Include patient/ patient energy conservation representative in decisions related to safety Outcome: Progressing Note: Evaluation of progress towards goal: Patient remains free from injury. Problem: Infection Goal: Absence of infection during hospitalization Description: INTERVENTIONS 1. Assess and monitor for signs and symptoms of infection. 2. Monitor lab/diagnostic results. 3. Monitor all insertion sites i.e., indwelling lines, tubes and drains. 4. Monitor endotracheal (as able) and nasal secretions for changes in amount and color. 5. Administer medications as ordered. 6. Instruct and encourage patient and family to use good hand hygiene technique. 7. Identify and instruct patient/patient energy conservation representative in use of appropriate isolation precautions for identified infection/symptoms. 8. Provide and discuss with patient/patient energy conservation representative on educational MDRO sheet. 9. Encourage and monitor nutritional status daily and consult clinical business analyst if indicated. 10. Implement neutropenic guidelines as needed. Outcome: Progressing Note: Evaluation of progress towards goal: Patient afebrile. Monitoring lab values. Problem: Knowledge Deficit Goal: Patient/patient energy conservation representative demonstrates understanding of disease process, treatment plan, medications, and discharge instructions Description: INTERVENTIONS 1. Complete learning assessment and assess knowledge base 2. Provide teaching at level of understanding 3. Provide teaching via preferred learning method(s) Outcome: Progressing Note: Evaluation of progress towards goal: Explaining plan of care to patient and family. Problem: Discharge Planning Goal: Discharge to post-acute care, other facility, or home with appropriate resources Description: Patient's goal is: INTERVENTIONS 1. Conduct assessment to determine patient/family and health care team treatment goals, and need for post-acute services based on payer coverage, community resources, and patient preferences, and barriers to discharge 2. Coordinate with Social work, Care Navigation, and Utilization Review to arrange appropriate level of services according to patient's needs based on patient preference and payer coverage in collaboration with the physician and health care team 3. Address psychosocial, clinical, and financial barriers to discharge as identified in assessment in conjunction with the patient/family and health care team 4. Consult appropriate ancillary services (i.e.. PT/OT/ST, etc) as needed 5. Communicate with and update the patient/family, physician, and health care team regarding progress on the discharge plan 6. Identify discharge learning needs (meds, wound care, etc). 7. Arrange for needed discharge transportation as appropriate Outcome: Progressing Note: Evaluation of progress towards goal: Patient remains in ICU at this time. Has written orders to transfer out. Problem: Multi-Drug Resistant Organism / Rule-Out Infection Prevention Goal: Prevent transmission of infection Description: INTERVENTIONS 1. Place patient in private room or in room with patient with same disease 2. Discard single-use items 3. Clean reusable equipment between patients 4. Wear gloves for direct and indirect contact with patient or contaminants 5. Change gloves between tasks and procedures 6. Wash hands before and after caring for each patient 7. Wear appropriate personal protective equipment in relation to the indicated isolation type 8. Place appropriate isolation signage on patient's door 9. Provide patient/ patient energy conservation representative with isolation education. Outcome: Progressing Note: Evaluation of progress towards goal: Patient remains afebrile. Monitoring labs. Problem: Moderate - High Risk Fall Score Description: [place] Fall Score of =/> 25 or indicated by [facility] Assessment Goal: Patient should be free from fall Description: Interventions: 1. [place] to environment 2. Hourly rounds addressing the 4 P's (Pain, Positioning, Possessions, Potty) 3. Clear area of hazards (spills, clutter, electrical cords, unnecessary equipment) 4. Place equipment (bed & TV controls, call light, phone, urinal) within reach 5. Encourage patient to wear glasses and hearing aides as appropriate 6. Maintain bed in lowest position 7. Lock wheels on bed/wheelchair 8. Provide adequate lighting, including night light 9. Assess need for additional bedding, food/fluids, pain med's prior to sleep/routinely 10. Provide gripper slippers or personal non-skid footwear 11. Teach patient and patient energy conservation representative to maintain environment for safety and engage in all aspects of fall prevention program 12. Remind patient to call for help before getting out of bed 13. Initiate bed/chair/exit alarms supportive devices as appropriate, (chair wedge, no-skid floor mat, raised edge mattress, hip protectors) 14. Locate patient bed assignment for optimal visualization 15. Evaluate and identify Safe Patient Handling Equipment needs 16. Provide supervision when out of bed or chair 17. Utilize gait belt as needed to assist with ambulation 18. Place adaptive equipment (cane, walker) within reach 19. Request patient energy conservation representative bring adaptive equipment/mobility aids from home or obtain and provide as needed 20. Consult pharmacy regarding effects of med's affecting mobility, cognition, and alternatives 21. Obtain physician order for PT if risk factors associated with mobility are present 22. Obtain physician order for OT as appropriate 23. Utilize diversional activities 24. Educate patient and patient energy conservation representative how to maintain a safe environment during visitation times (notify nurse prior to leaving bedside) 25. Consider appropriateness of medical or non-medical clerical assistant 26. Set up voiding schedule as appropriate (every 2 hours) Outcome: Progressing Note: Evaluation of progress towards goal: Patient remains free from injury. Problem: Neurosensory - Adult Goal: Achieves stable or improved neurological status Description: Patient's goal is: INTERVENTIONS 1. Assess for and report changes in neurological status 2. Initiate measures to prevent increased intracranial pressure 3. Maintain blood pressure and fluid volume within ordered parameters to optimize cerebral perfusion and minimize risk of hemorrhage 4. Monitor temperature, glucose, and sodium. Initiate appropriate interventions as ordered Outcome: Progressing Note: Evaluation of progress towards goal: Patient remains neurologically intact. No seizure activity at this time. Goal: Absence of seizures Description: INTERVENTIONS 1. [place] and maintain seizure precautions 2. Monitor for seizure activity 3. Administer anti-seizure medications as ordered 4. Monitor neurological status Outcome: Progressing Note: Evaluation of progress towards goal: Patient continues to not have seizure activity. Goal: Remains free of injury related to seizures activity Description: INTERVENTIONS 1. Maintain airway, patient safety and administer oxygen as ordered 2. Monitor patient for seizure activity, document and report duration and description of seizure to LIP 3. If seizure occurs, turn patient to side and suction secretions as needed 4. Reorient patient post seizure 5. Anthony and maintain seizure precautions 6. Instruct patient/legal energy conservation representative to notify RN of any seizure activity 7. Instruct patient/legal energy conservation representative to call for assistance with activity based on assessment Outcome: Progressing Note: Evaluation of progress towards goal: Patient remains free from injury. Goal: Achieves maximal functionality and self care Description: Patient's goal is: INTERVENTIONS 1. Assess, monitor and assist patient for optimal swallowing and airway patency with patient fatigue and changes in neurological status 2. Encourage and assist patient to increase activity and self care with guidance from PT/OT/ST 3. Encourage visually impaired, hearing impaired and aphasic patients to use assistive/communication devices Outcome: Progressing Note: Evaluation of progress towards goal: Patient remains independent in all ADLs. Problem: Pain Goal: Patient goal is pain score less than 4, able to rest, and participant in treatment plan as appropriate Description: INTERVENTIONS: 1. Encourage patient or legal energy conservation representative to report early pain and ask for pain medicine when needed 2. Assess pain using appropriate pain scale and include the scale used when documenting 3. Administer analgesics based on type and severity of pain and evaluate response within appropriate time frame 4. Implement non-pharmacological measures as appropriate and evaluate response 5. Consider cultural and social influences on pain and pain management 6. Notify LIP if interventions ineffective or patient reports new pain 7. Monitor vital signs including pulse ox, end-tidal CO2 based on pain intervention 8. Reassess pain per policy 9. Teach patient or legal energy conservation representative interventions for comforting Outcome: Progressing Note: Evaluation of progress towards goal: Encourage patient or legal energy conservation representative to report early pain and ask for pain medicine when needed Problem: Safety Goal: Patient will be injury free during hospitalization Description: INTERVENTIONS: 1. Assess patient's risk for falls and implement fall prevention plan of care per policy 2. Provide and maintain a safe environment 3. Proper use of double Identifiers 4. Medication administration using the 5 rights 5. Hand hygiene 6. Specimens are labeled at the bedside 7. Instruct patient/ patient energy conservation representative about use of safety devices 8. Include patient/ patient energy conservation representative in decisions related to safety Outcome: Progressing Note: Evaluation of progress towards goal: Patient has remained injury free. Bed in lowest position and usable items within reach. Safety measures maintained. Problem: Infection Goal: Absence of infection during hospitalization Description: INTERVENTIONS 1. Assess and monitor for signs and symptoms of infection. 2. Monitor lab/diagnostic results. 3. Monitor all insertion sites i.e., indwelling lines, tubes and drains. 4. Monitor endotracheal (as able) and nasal secretions for changes in amount and color. 5. Administer medications as ordered. 6. Instruct and encourage patient and family to use good hand hygiene technique. 7. Identify and instruct patient/patient energy conservation representative in use of appropriate isolation precautions for identified infection/symptoms. 8. Provide and discuss with patient/patient energy conservation representative on educational MDRO sheet. 9. Encourage and monitor nutritional status daily and consult clinical business analyst if indicated. 10. Implement neutropenic guidelines as needed. Outcome: Progressing Note: Evaluation of progress towards goal: Patient temperature measurement Q4, antibiotics given when indicated, hygiene maintained. Problem: Knowledge Deficit Goal: Patient/patient energy conservation representative demonstrates understanding of disease process, treatment plan, medications, and discharge instructions Description: INTERVENTIONS 1. Complete learning assessment and assess knowledge base 2. Provide teaching at level of understanding 3. Provide teaching via preferred learning method(s) Outcome: Progressing Note: Evaluation of progress towards goal: Regularly educating patient when appropriate, answering questions from family and/or patient as needed. Problem: Discharge Planning Goal: Discharge to post-acute care, other facility, or home with appropriate resources Description: Patient's goal is: INTERVENTIONS 1. Conduct assessment to determine patient/family and health care team treatment goals, and need for post-acute services based on payer coverage, community resources, and patient preferences, and barriers to discharge 2. Coordinate with Social work, Care Navigation, and Utilization Review to arrange appropriate level of services according to patient's needs based on patient preference and payer coverage in collaboration with the physician and health care team 3. Address psychosocial, clinical, and financial barriers to discharge as identified in assessment in conjunction with the patient/family and health care team 4. Consult appropriate ancillary services (i.e.. PT/OT/ST, etc) as needed 5. Communicate with and update the patient/family, physician, and health care team regarding progress on the discharge plan 6. Identify discharge learning needs (meds, wound care, etc). 7. Arrange for needed discharge transportation as appropriate Outcome: Progressing Note: Evaluation of progress towards goal: Continuously working with interdisciplinary team to improve patient status, patient currently in the ICU for critical care, Problem: Potential for Compromised Skin Integrity Goal: Skin integrity is maintained or improved Description: Patient's goal is: INTERVENTIONS 1. Perform initial skin assessment on admission and as needed 2. Turn patient every 2 hours and PRN 3. Relieve pressure to bony prominences 4. Avoid shearing 5. Keep skin clean and dry 6. Alternate a full bath with partial baths for elderly 7. Apply lotion/moisturizer on skin 8. Monitor patient's hygiene practices 9. Float heels 10. Collaborate with interdisciplinary team and initiate plans and interventions as needed Outcome: Progressing Note: Evaluation of progress towards goal: Turn patient every 2 hours and PRN . Relieve pressure to bony prominences . Avoid shearing . Keep skin clean and dry Problem: Moderate - High Risk Fall Score Description: [place] Fall Score of =/> 25 or indicated by [facility] Assessment Goal: Patient should be free from fall Description: Interventions: 1. [place] to environment 2. Hourly rounds addressing the 4 P's (Pain, Positioning, Possessions, Potty) 3. Clear area of hazards (spills, clutter, electrical cords, unnecessary equipment) 4. Place equipment (bed & TV controls, call light, phone, urinal) within reach 5. Encourage patient to wear glasses and hearing aides as appropriate 6. Maintain bed in lowest position 7. Lock wheels on bed/wheelchair 8. Provide adequate lighting, including night light 9. Assess need for additional bedding, food/fluids, pain med's prior to sleep/routinely 10. Provide gripper slippers or personal non-skid footwear 11. Teach patient and patient energy conservation representative to maintain environment for safety and engage in all aspects of fall prevention program 12. Remind patient to call for help before getting out of bed 13. Initiate bed/chair/exit alarms supportive devices as appropriate, (chair wedge, no-skid floor mat, raised edge mattress, hip protectors) 14. Locate patient bed assignment for optimal visualization 15. Evaluate and identify Safe Patient Handling Equipment needs 16. Provide supervision when out of bed or chair 17. Utilize gait belt as needed to assist with ambulation 18. Place adaptive equipment (cane, walker) within reach 19. Request patient energy conservation representative bring adaptive equipment/mobility aids from home or obtain and provide as needed 20. Consult pharmacy regarding effects of med's affecting mobility, cognition, and alternatives 21. Obtain physician order for PT if risk factors associated with mobility are present 22. Obtain physician order for OT as appropriate 23. Utilize diversional activities 24. Educate patient and patient energy conservation representative how to maintain a safe environment during visitation times (notify nurse prior to leaving bedside) 25. Consider appropriateness of medical or non-medical clerical assistant 26. Set up voiding schedule as appropriate (every 2 hours) Outcome: Progressing Note: Evaluation of progress towards goal: . Encourage patient to wear glasses and hearing aides as appropriate . Maintain bed in lowest position . Lock wheels on bed/wheelchair [facility] Transfer Accept Note I have received a request for transfer of primary service for this patient from the ICU team care of Dr. Singh. Clinical handoff report was given. [facility] will assume care as primary team of this patient upon transfer out of the ICU. BARB HERRERA MD 11/06/2024 Patient alert and oriented, but impulsive and forgetful. Bed alarm on. Denies pain. Continuous EEG remains in place. Rheumatology and Nephrology consulted today. and mother at bedside. Afebrile. ID following, continue Rocephin, Flagyl, and Decadron. Verbalizes understanding, but forgetful. Needs reinforcement. Problem: Pain Goal: Patient goal is pain score less than 4, able to rest, and participant in treatment plan as appropriate Description: INTERVENTIONS: 1. Encourage patient or legal energy conservation representative to report early pain and ask for pain medicine when needed 2. Assess pain using appropriate pain scale and include the scale used when documenting 3. Administer analgesics based on type and severity of pain and evaluate response within appropriate time frame 4. Implement non-pharmacological measures as appropriate and evaluate response 5. Consider cultural and social influences on pain and pain management 6. Notify LIP if interventions ineffective or patient reports new pain 7. Monitor vital signs including pulse ox, end-tidal CO2 based on pain intervention 8. Reassess pain per policy 9. Teach patient or legal energy conservation representative interventions for comforting Outcome: Progressing Note: Evaluation of progress towards goal: Assess pain using appropriate pain scale and include the scale used when documenting. Administer analgesics based on type and severity of pain and evaluate response within appropriate time frame Problem: Safety Goal: Patient will be injury free during hospitalization Description: INTERVENTIONS: 1. Assess patient's risk for falls and implement fall prevention plan of care per policy 2. Provide and maintain a safe environment 3. Proper use of double Identifiers 4. Medication administration using the 5 rights 5. Hand hygiene 6. Specimens are labeled at the bedside 7. Instruct patient/ patient energy conservation representative about use of safety devices 8. Include patient/ patient energy conservation representative in decisions related to safety Outcome: Progressing Note: Evaluation of progress towards goal:Patient has remained injury free. Bed in lowest position and usable items within reach. Safety measures maintained. Problem: Infection Goal: Absence of infection during hospitalization Description: INTERVENTIONS 1. Assess and monitor for signs and symptoms of infection. 2. Monitor lab/diagnostic results. 3. Monitor all insertion sites i.e., indwelling lines, tubes and drains. 4. Monitor endotracheal (as able) and nasal secretions for changes in amount and color. 5. Administer medications as ordered. 6. Instruct and encourage patient and family to use good hand hygiene technique. 7. Identify and instruct patient/patient energy conservation representative in use of appropriate isolation precautions for identified infection/symptoms. 8. Provide and discuss with patient/patient energy conservation representative on educational MDRO sheet. 9. Encourage and monitor nutritional status daily and consult clinical business analyst if indicated. 10. Implement neutropenic guidelines as needed. Outcome: Progressing Note: Evaluation of progress towards goal: Patient temperature measurement Q4, antibiotics given when indicated, hygiene maintained. Problem: Knowledge Deficit Goal: Patient/patient energy conservation representative demonstrates understanding of disease process, treatment plan, medications, and discharge instructions Description: INTERVENTIONS 1. Complete learning assessment and assess knowledge base 2. Provide teaching at level of understanding 3. Provide teaching via preferred learning method(s) Outcome: Progressing Note: Evaluation of progress towards goal: Regularly educating patient when appropriate, answering questions from family and/or patient as needed. Problem: Discharge Planning Goal: Discharge to post-acute care, other facility, or home with appropriate resources Description: Patient's goal is: INTERVENTIONS 1. Conduct assessment to determine patient/family and health care team treatment goals, and need for post-acute services based on payer coverage, community resources, and patient preferences, and barriers to discharge 2. Coordinate with Social work, Care Navigation, and Utilization Review to arrange appropriate level of services according to patient's needs based on patient preference and payer coverage in collaboration with the physician and health care team 3. Address psychosocial, clinical, and financial barriers to discharge as identified in assessment in conjunction with the patient/family and health care team 4. Consult appropriate ancillary services (i.e.. PT/OT/ST, etc) as needed 5. Communicate with and update the patient/family, physician, and health care team regarding progress on the discharge plan 6. Identify discharge learning needs (meds, wound care, etc). 7. Arrange for needed discharge transportation as appropriate Outcome: Progressing Note: Evaluation of progress towards goal: Continuously working with interdisciplinary team to improve patient status, patient currently in the ICU for critical care, Problem: Moderate - High Risk Fall Score Description: Mack Fall Score of =/> 25 or indicated by [facility] Assessment Goal: Patient should be free from fall Description: Interventions: 1. [place] to environment 2. Hourly rounds addressing the 4 P's (Pain, Positioning, Possessions, Potty) 3. Clear area of hazards (spills, clutter, electrical cords, unnecessary equipment) 4. Place equipment (bed & TV controls, call light, phone, urinal) within reach 5. Encourage patient to wear glasses and hearing aides as appropriate 6. Maintain bed in lowest position 7. Lock wheels on bed/wheelchair 8. Provide adequate lighting, including night light 9. Assess need for additional bedding, food/fluids, pain med's prior to sleep/routinely 10. Provide gripper slippers or personal non-skid footwear 11. Teach patient and patient energy conservation representative to maintain environment for safety and engage in all aspects of fall prevention program 12. Remind patient to call for help before getting out of bed 13. Initiate bed/chair/exit alarms supportive devices as appropriate, (chair wedge, no-skid floor mat, raised edge mattress, hip protectors) 14. Locate patient bed assignment for optimal visualization 15. Evaluate and identify Safe Patient Handling Equipment needs 16. Provide supervision when out of bed or chair 17. Utilize gait belt as needed to assist with ambulation 18. Place adaptive equipment (cane, walker) within reach 19. Request patient energy conservation representative bring adaptive equipment/mobility aids from home or obtain and provide as needed 20. Consult pharmacy regarding effects of med's affecting mobility, cognition, and alternatives 21. Obtain physician order for PT if risk factors associated with mobility are present 22. Obtain physician order for OT as appropriate 23. Utilize diversional activities 24. Educate patient and patient energy conservation representative how to maintain a safe environment during visitation times (notify nurse prior to leaving bedside) 25. Consider appropriateness of medical or non-medical clerical assistant 26. Set up voiding schedule as appropriate (every 2 hours) Outcome: Progressing Note: Evaluation of progress towards goal: Hourly rounds addressing the 4 P's (Pain, Positioning, Possessions, Potty) . Clear area of hazards (spills, clutter, electrical cords, unnecessary equipment) . Place equipment (bed & TV controls, call light, phone, urinal) within reach Neurology consult service plan of care note: Patient evaluated today, she was somnolent however waking up with verbal stimulation, later afternoon the patient was oriented x3, answering questions and following commands appropriately. Based on our evaluation, improvement in mental status and id input, will hold off obtaining lumbar puncture at this time Plan: Continue Keppra 1000 mg IV b.i.d.. Keep holding lamotrigine due to concern for drug-induced skin rash. Keep the patient on EEG for now Will consider increasing Keppra further versus adding another AED. Appreciate ID input. Our service will continue to follow Brigida Rae MD PGY-4, Neurology Resident [facility] Problem: Pain Goal: Patient goal is pain score less than 4, able to rest, and participant in treatment plan as appropriate Description: INTERVENTIONS: 1. Encourage patient or legal energy conservation representative to report early pain and ask for pain medicine when needed 2. Assess pain using appropriate pain scale and include the scale used when documenting 3. Administer analgesics based on type and severity of pain and evaluate response within appropriate time frame 4. Implement non-pharmacological measures as appropriate and evaluate response 5. Consider cultural and social influences on pain and pain management 6. Notify LIP if interventions ineffective or patient reports new pain 7. Monitor vital signs including pulse ox, end-tidal CO2 based on pain intervention 8. Reassess pain per policy 9. Teach patient or legal energy conservation representative interventions for comforting Outcome: Progressing Note: Evaluation of progress towards goal: pain meds given as needed. See MAR for details. Problem: Safety Goal: Patient will be injury free during hospitalization Description: INTERVENTIONS: 1. Assess patient's risk for falls and implement fall prevention plan of care per policy 2. Provide and maintain a safe environment 3. Proper use of double Identifiers 4. Medication administration using the 5 rights 5. Hand hygiene 6. Specimens are labeled at the bedside 7. Instruct patient/ patient energy conservation representative about use of safety devices 8. Include patient/ patient energy conservation representative in decisions related to safety Outcome: Progressing Note: Evaluation of progress towards goal: Patient safety maintained. Problem: Infection Goal: Absence of infection during hospitalization Description: INTERVENTIONS 1. Assess and monitor for signs and symptoms of infection. 2. Monitor lab/diagnostic results. 3. Monitor all insertion sites i.e., indwelling lines, tubes and drains. 4. Monitor endotracheal (as able) and nasal secretions for changes in amount and color. 5. Administer medications as ordered. 6. Instruct and encourage patient and family to use good hand hygiene technique. 7. Identify and instruct patient/patient energy conservation representative in use of appropriate isolation precautions for identified infection/symptoms. 8. Provide and discuss with patient/patient energy conservation representative on educational MDRO sheet. 9. Encourage and monitor nutritional status daily and consult clinical business analyst if indicated. 10. Implement neutropenic guidelines as needed. Outcome: Progressing Note: Evaluation of progress towards goal: Pt receiving antibiotics as ordered. Problem: Knowledge Deficit Goal: Patient/patient energy conservation representative demonstrates understanding of disease process, treatment plan, medications, and discharge instructions Description: INTERVENTIONS 1. Complete learning assessment and assess knowledge base 2. Provide teaching at level of understanding 3. Provide teaching via preferred learning method(s) Outcome: Progressing Note: Evaluation of progress towards goal: Updated & frequently reminded pt on POC and treatment. All questions answered. Problem: Potential for Compromised Skin Integrity Goal: Skin integrity is maintained or improved Description: Patient's goal is: INTERVENTIONS 1. Perform initial skin assessment on admission and as needed 2. Turn patient every 2 hours and PRN 3. Relieve pressure to bony prominences 4. Avoid shearing 5. Keep skin clean and dry 6. Alternate a full bath with partial baths for elderly 7. Apply lotion/moisturizer on skin 8. Monitor patient's hygiene practices 9. Float heels 10. Collaborate with interdisciplinary team and initiate plans and interventions as needed Outcome: Progressing Note: Evaluation of progress towards goal: No new skin breakdown. See skin assessment for details. Pt able to reposition self. Assisted as needed. Pillow support provided. Goal: Patient's nutritional intake is adequate Description: Patient's goal is: INTERVENTIONS 1. Assess and monitor food intake and supplements, patient food preferences, nausea, vomiting, labs, oral cavity (gums, teeth, tongue, mucosa), proper denture fit, and cultural beliefs 2. Monitor for signs of hypoglycemia and hyperglycemia 3. Collaborate with interdisciplinary team and initiate plan and interventions as ordered 4. Monitor patient's weight 5. Assist patient with meals/food selection 6. Assist patient with eating 7. Allow adequate time for meals 8. Provide pleasant environment during mealtime 9. Increase social contact during mealtimes 10. Plan activities to conserve energy 11. Encourage/perform oral hygiene as appropriate 12. Encourage patient to take dietary supplement as ordered 13. Collaborate with clinical clinical business analyst 14. Include patient/ patient's energy conservation representative in decisions related to nutrition Outcome: Progressing Note: Evaluation of progress towards goal: pt nauseous. Encouraged clears throughout day. Problem: Urinary Incontinence Goal: Perineal skin integrity is maintained or improved Description: INTERVENTIONS 1. Assess genitourinary system, perineal skin, labs (urinalysis), and history of incontinence to include past management, aggravating, and alleviating factors 2. Keep skin clean and dry 3. Apply skin protectant 4. Develop skin care regimen 5. Provide privacy when changing patients incontinence device to maintain their dignity 6. Consider placing an indwelling catheter 7. Collaborate with interdisciplinary team and initiate plans and interventions as needed Outcome: Progressing Note: Evaluation of progress towards goal: [place] cath in place. [place] area kept clean and dry. Problem: Moderate - High Risk Fall Score Description: Mack Fall Score of =/> 25 or indicated by [facility] Assessment Goal: Patient should be free from fall Description: Interventions: 1. [place] to environment 2. Hourly rounds addressing the 4 P's (Pain, Positioning, Possessions, Potty) 3. Clear area of hazards (spills, clutter, electrical cords, unnecessary equipment) 4. Place equipment (bed & TV controls, call light, phone, urinal) within reach 5. Encourage patient to wear glasses and hearing aides as appropriate 6. Maintain bed in lowest position 7. Lock wheels on bed/wheelchair 8. Provide adequate lighting, including night light 9. Assess need for additional bedding, food/fluids, pain med's prior to sleep/routinely 10. Provide gripper slippers or personal non-skid footwear 11. Teach patient and patient energy conservation representative to maintain environment for safety and engage in all aspects of fall prevention program 12. Remind patient to call for help before getting out of bed 13. Initiate bed/chair/exit alarms supportive devices as appropriate, (chair wedge, no-skid floor mat, raised edge mattress, hip protectors) 14. Locate patient bed assignment for optimal visualization 15. Evaluate and identify Safe Patient Handling Equipment needs 16. Provide supervision when out of bed or chair 17. Utilize gait belt as needed to assist with ambulation 18. Place adaptive equipment (cane, walker) within reach 19. Request patient energy conservation representative bring adaptive equipment/mobility aids from home or obtain and provide as needed 20. Consult pharmacy regarding effects of med's affecting mobility, cognition, and alternatives 21. Obtain physician order for PT if risk factors associated with mobility are present 22. Obtain physician order for OT as appropriate 23. Utilize diversional activities 24. Educate patient and patient energy conservation representative how to maintain a safe environment during visitation times (notify nurse prior to leaving bedside) 25. Consider appropriateness of medical or non-medical clerical assistant 26. Set up voiding schedule as appropriate (every 2 hours) Outcome: Progressing Note: Evaluation of progress towards goal: Fall precautions in place. Bed in low locked position. Call light in reach. Problem: Safety - Medical Restraint Goal: Remains free of injury from restraints (Restraint for Interference with Pharmaceutical Process Engineer) Description: INTERVENTIONS: 1. Determine that other, less restrictive measures have been tried or would not be effective before applying the restraint 2. Evaluate the patient's condition at the time of restraint application 3. Inform patient/family regarding the reason for restraint 4. Q2H: Monitor safety, Vital signs, psychosocial status, signs of injury, skin integrity, circulation, neurovascular status in affected extremities, respiratory status, comfort, nutrition and hydration, hygiene, ROM, elimination needs 5. Doctor will be notified of restraint 6. RN properly applies restraints per physician order Outcome: Completed Note: Evaluation of progress towards goal: order discontinued. Goal: Free from restraint(s) (Restraint for Interference with Pharmaceutical Process Engineer) Description: INTERVENTIONS: 1. ONCE/SHIFT or MINIMUM Q12H: Assess and document the continuing need for restraints 2. Order is valid for the duration of the episode of care 3. Discontinue at the earliest possible time once the reason for restraints no longer exists 4. Identify and implement measures to help patient regain control 5. Food, fluids, and toilet offered at a minimum of every 2 hours 6. RN modifies the patient's plan of care by entering a problem statement related to safety; individualizes the safety outcome Outcome: Completed Note: Evaluation of progress towards goal: order discontinued Problem: Pain Goal: Patient goal is pain score less than 4, able to rest, and participant in treatment plan as appropriate Description: INTERVENTIONS: 1. Encourage patient or legal energy conservation representative to report early pain and ask for pain medicine when needed 2. Assess pain using appropriate pain scale and include the scale used when documenting 3. Administer analgesics based on type and severity of pain and evaluate response within appropriate time frame 4. Implement non-pharmacological measures as appropriate and evaluate response 5. Consider cultural and social influences on pain and pain management 6. Notify LIP if interventions ineffective or patient reports new pain 7. Monitor vital signs including pulse ox, end-tidal CO2 based on pain intervention 8. Reassess pain per policy 9. Teach patient or legal energy conservation representative interventions for comforting Outcome: Progressing Note: Evaluation of progress towards goal: Pain assessment completed per hospital protocol. Medications given and pain reassessed. Problem: Safety Goal: Patient will be injury free during hospitalization Description: INTERVENTIONS: 1. Assess patient's risk for falls and implement fall prevention plan of care per policy 2. Provide and maintain a safe environment 3. Proper use of double Identifiers 4. Medication administration using the 5 rights 5. Hand hygiene 6. Specimens are labeled at the bedside 7. Instruct patient/ patient energy conservation representative about use of safety devices 8. Include patient/ patient energy conservation representative in decisions related to safety Outcome: Progressing Note: Evaluation of progress towards goal: Patient is resting in bed with side rails up, wheels locked, and call light within reach. Environment is clear of hazards. Problem: Infection Goal: Absence of infection during hospitalization Description: INTERVENTIONS 1. Assess and monitor for signs and symptoms of infection. 2. Monitor lab/diagnostic results. 3. Monitor all insertion sites i.e., indwelling lines, tubes and drains. 4. Monitor endotracheal (as able) and nasal secretions for changes in amount and color. 5. Administer medications as ordered. 6. Instruct and encourage patient and family to use good hand hygiene technique. 7. Identify and instruct patient/patient energy conservation representative in use of appropriate isolation precautions for identified infection/symptoms. 8. Provide and discuss with patient/patient energy conservation representative on educational MDRO sheet. 9. Encourage and monitor nutritional status daily and consult clinical business analyst if indicated. 10. Implement neutropenic guidelines as needed. Outcome: Progressing Note: Evaluation of progress towards goal: Lines and tubing are clean and maintained. Caps and dressing are changed when appropriate. Problem: Knowledge Deficit Goal: Patient/patient energy conservation representative demonstrates understanding of disease process, treatment plan, medications, and discharge instructions Description: INTERVENTIONS 1. Complete learning assessment and assess knowledge base 2. Provide teaching at level of understanding 3. Provide teaching via preferred learning method(s) Outcome: Progressing Note: Evaluation of progress towards goal: Patient needs reinforcement to demonstrate understanding of disease process and treatment. Education provided when needed/appropriate. Problem: Discharge Planning Goal: Discharge to post-acute care, other facility, or home with appropriate resources Description: Patient's goal is: INTERVENTIONS 1. Conduct assessment to determine patient/family and health care team treatment goals, and need for post-acute services based on payer coverage, community resources, and patient preferences, and barriers to discharge 2. Coordinate with Social work, Care Navigation, and Utilization Review to arrange appropriate level of services according to patient's needs based on patient preference and payer coverage in collaboration with the physician and health care team 3. Address psychosocial, clinical, and financial barriers to discharge as identified in assessment in conjunction with the patient/family and health care team 4. Consult appropriate ancillary services (i.e.. PT/OT/ST, etc) as needed 5. Communicate with and update the patient/family, physician, and health care team regarding progress on the discharge plan 6. Identify discharge learning needs (meds, wound care, etc). 7. Arrange for needed discharge transportation as appropriate Outcome: Progressing Note: Evaluation of progress towards goal: Patient is currently in the ICU. Working with care team and patient towards an effective discharge. Problem: Safety - Medical Restraint Goal: Remains free of injury from restraints (Restraint for Interference with Pharmaceutical Process Engineer) Description: INTERVENTIONS: 1. Determine that other, less restrictive measures have been tried or would not be effective before applying the restraint 2. Evaluate the patient's condition at the time of restraint application 3. Inform patient/family regarding the reason for restraint 4. Q2H: Monitor safety, Vital signs, psychosocial status, signs of injury, skin integrity, circulation, neurovascular status in affected extremities, respiratory status, comfort, nutrition and hydration, hygiene, ROM, elimination needs 5. Doctor will be notified of restraint 6. RN properly applies restraints per physician order Outcome: Progressing Note: Evaluation of progress towards goal: Patient remains free of injury with restraints on. Q2 checks on restraints. documented in this encounter [employer] 11-12-2024 History of Present illness Narrative Images from the original note were not included. Nephrology Daily Progress Note INTERVAL HISTORY: Denies any shortness breath denies any chest pain. Denies abdominal pain. Denies any muscle pain. Anxious to go home. VITAL SIGNS TREND: Vitals: 11/11/24 1929 11/11/24 2336 11/12/24 0508 11/12/24 0906 BP: 119/65 112/60 103/57 (!) 129/93 Pulse: 80 63 64 55 Resp: 18 18 14 12 Temp: 37.2 C (99 F) 37 C (98.6 F) 36.7 C (98 F) 36.5 C (97.7 F) TempSrc: Oral Oral Oral Oral SpO2: 97% 97% 97% 99% Weight: Height: INTAKE/OUTPUT:No intake or output data in the 24 hours ending 11/12/24 09 No intake/output data recorded. WEIGHT: Last 3 Weight Readings 11/08/24 0026 11/09/24 0500 11/10/24 0500 Weight: 93.4 kg (205 lb 14.6 oz) 93 kg (205 lb 0.4 oz) 92.4 kg (203 lb 11.3 oz) PHYSICAL EXAM: Blood pressure (!) 129/93, pulse 55, temperature 36.5 C (97.7 F), temperature source Oral, resp. rate 12, height 162.6 cm (5' 4.02 ), weight 92.4 kg (203 lb 11.3 oz), SpO2 99%, unknown if currently . Temp: [36.5 C (97.7 F)-37.2 C (99 F)] 36.5 C (97.7 F) Pulse: [55-85] 55 Resp: [12-20] 12 BP: (103-129)/(57-93) 129/93 SpO2: [97 %-99 %] 99 % O2 Device: None (Room air) O2 Flow Rate (L/min): [0 L/min] 0 L/min General appearance: alert in no apparent distress. HEENT: no JVD, no lymphadenopathy. Heart exam: normal S1-S2 Lungs: clear to auscultation bilaterally Abdomen: soft, no tenderness, no guarding, positive bowel sounds Extremities: no edema Vascular: adequate pulses and no carotid bruits. Musculoskeletal: no joint tenderness or swelling. LABORATORY EVALUATION: Results from last 7 days Lab Units 11/12/24 0624 11/11/24 0709 11/10/24 0600 11/09/24 1434 11/09/24 0307 11/08/24 1215 11/08/24 0845 11/08/24 0610 11/06/24 2150 11/06/24 1618 SODIUM mmol/L 141 140 139 -- 140 -- -- 141 < > -- POTASSIUM mmol/L 4.4 4.3 4.2 4.1 4.7 < > -- 3.3* < > -- CHLORIDE mmol/L 105 104 101 -- 101 -- -- 108 < > -- CO2 mmol/L 30 29 31 -- 30 -- -- 28 < > -- ANION GAP mmol/L 6 7 7 -- 9 -- -- 5 < > -- BUN mg/dL 14 16 16 -- 22 -- -- 24* < > -- CREATININE mg/dL 1.39* 1.44* 1.48* -- 1.58* -- -- 1.51* < > -- CALCIUM mg/dL 8.6 8.6 8.5 -- 8.8 -- -- 7.7* < > -- MAGNESIUM mg/dL 1.5* 1.5* 1.9 -- 1.7* -- -- 1.9 < > -- PHOSPHORUS mg/dL 4.4 4.1 4.3 -- 4.1 -- -- 2.7 < > -- CALCIUM, IONIZED mg/dL -- 4.7 4.6 -- 4.5 -- 4.6 -- -- 4.8 < > = values in this interval not displayed. Results from last 7 days Lab Units 11/12/24 0624 11/11/24 0709 11/10/24 0600 11/09/24 0307 11/07/24 0735 11/07/24 0304 TOTAL PROTEIN g/dL 5.7* 5.8* 6.3 6.0 5.9* 6.2 ALBUMIN g/dL 3.3 3.3 3.7 3.7 3.4 3.8 AST U/L 107* 179* 389* 764* -- 783* ALT U/L 274* 398* 646* 838* -- 1,446* TOTAL BILIRUBIN mg/dL 0.5 0.5 0.8 1.6* -- 0.5 DIRECT BILIRUBIN mg/dL -- -- -- 0.9* -- -- ALK PHOS U/L 94 123 155* 143* -- 61 Results from last 7 days Lab Units 11/12/24 0624 11/11/24 0709 11/10/24 0600 11/09/24 0307 11/08/24 0610 WBC X10E9/L 10.3 9.9 11.3* 10.4 11.0 HEMOGLOBIN g/dL 11.6* 11.6* 12.4 12.0 9.5* HEMATOCRIT % 34.6* 34.3* 37.4 34.5* 27.9* PLATELETS X10E9/L 222 187 195 210 203 Lab Results Component Value Date IRON 70 11/08/2024 TIBC 358 11/08/2024 FERRITIN 214 11/08/2024 IRONSAT 20 11/08/2024 Results from last 7 days Lab Units 11/12/24 0624 11/11/24 0709 11/10/24 0600 11/09/24 0307 11/08/24 1524 BEDSIDE GLUCOSE mg/dL -- -- -- -- 153* GLUCOSE mg/dL 90 95 92 90 -- Results from last 7 days Lab Units 11/12/24 0611/11/24 0709 11/10/24 0600 11/09/24 0307 11/08/24 0610 CK TOTAL U/L 2,824* 6,889* 16,525* 39,237* 34,826* CURRENT MEDICATIONS: amLODIPine, 5 mg, oral, Daily ammonium lactate, 1 Application, topical, BID ARIPiprazole, 2 mg, oral, Daily heparin (porcine), 5,000 Units, subcutaneous, Q12H VANESSA lacosamide, 100 mg, oral, BID levETIRAcetam, 500 mg, oral, BID nicotine, 1 patch, transdermal, Daily oseltamivir, 30 mg, oral, BID PARoxetine, 10 mg, oral, Daily PROBLEM LIST: Acute kidney injury attributed to rhabdomyolysis. Creatinine baseline 0.6 mg/dL. CT of the abdomen pelvis without contrast from November 04, 2024 revealed no evidence of hydronephrosis, RAUL negative, C3/C4 within normal limits, Anca panel negative, anti-GBM negative, hepatitis-B and C panel negative, HIV panel negative. Rhabdomyolysis in the setting of seizures Influenza A positive 11/11/2024 Seizure disorder Sepsis with finding of possible colitis/enteritis as esophagitis on CT scan 11/04/2024 Maculopapular rash involving trunk and extremities with background of eczema Hepatic steatosis noted on CT scan October 2024 Depression GERD IMPRESSION: 1. Acute kidney injury secondary to rhabdomyolysis in the setting of seizures. Creatinine continues to improve 2. Rhabdomyolysis in the setting of seizure: CPK continues to improve 3. Seizure disorder on antiepileptics 4. Sepsis syndrome with suspected colitis: Infectious Disease is following. 5. Influenza A: On Tamiflu. 6. Hypomagnesemia: Magnesium sulfate was ordered 7. Elevated blood pressure. With relatively low blood pressure on amlodipine PLAN: 1. Discontinue amlodipine for relatively low blood pressure 2. Continue IV fluids 3. Magnesium sulfate 4 g IV piggyback x1 4. Continue to follow daily renal function 4. Continue to follow daily CPK 5. Continue to follow electrolytes and replace per sliding scale as needed No objection to discharge from Nephrology perspective. Discharge recommendations: Basic metabolic panel and CPK in 10 days Follow-up with Nephrology based on results of the BMP and CPK Joaquín Kenny M.D. For questions please call: Answering Service at [phone] Or Office at [phone] This note was created with the assistance of a speech-recognition program. Although the intention is to generate a document that actually reflects the content of the visit, no guarantees can be provided that every mistake has been identified and corrected by editing. Images from the original note were not included. NEPHROLOGY PROGRESS NOTE Assessment 1. Acute kidney injury attributed to rhabdomyolysis, renal function improving with creatinine down and plateaued at 1.4 mg/dL She is nonoliguric 2. Rhabdomyolysis in the setting of recent seizure disorder, CPK and myoglobin level trending down nicely, CPK at 6889 today with myoglobin of 423. Concern for serotonin syndrome for which he was taken off Paxil. Has been restarted now. 3. Encephalopathy in the setting of sepsis and recent seizure episode has resolved 4. Seizure disorder on antiepileptic agents 5. Sepsis with finding of colitis/ enteritis on CT scan on Rocephin and Flagyl. Antibiotics being stopped by Infectious disease service. 6. Maculopapular rash involving trunk/extremities on background of eczema being monitored. No evidence of eosinophilia. The rash has resolved. Rheumatology suspects this may just have been a flare-up of the eczema. Apparently the rashes coming back now and interestingly, she has evidence of eosinophilia 7. Volume status: Continue LR Plan 1. We will probably stop LR tomorrow Subjective/Interval history Increasing rash Problem List Acute kidney injury attributed to rhabdomyolysis. Creatinine baseline 0.6 mg/dL. RAUL negative, C3/C4 within normal limits, Anca panel negative, anti-GBM negative, hepatitis-B and C panel negative, HIV panel negative. Rhabdomyolysis in the setting of seizures Influenza A positive 11/11/2024 Seizure disorder Sepsis with finding of possible colitis/enteritis as esophagitis on CT scan 11/04/2024 Maculopapular rash involving trunk and extremities with background of eczema Hepatic steatosis noted on CT scan October 2024 Depression GERD Physical Exam Admission Weight: Weight: 91.9 kg (202 lb 9.6 oz) No intake/output data recorded. Weight change: Wt Readings from Last 3 Encounters: 11/10/24 92.4 kg (203 lb 11.3 oz) 11/04/24 81.6 kg (180 lb) 07/12/24 81.6 kg (180 lb) Vitals: Vitals: 11/10/24 2309 11/11/24 0409 11/11/24 0830 11/11/24 1111 BP: 131/78 127/85 123/89 124/69 Pulse: 106 73 81 85 Resp: 22 21 18 20 Temp: 37.2 C (99 F) 36.8 C (98.3 F) 36.8 C (98.2 F) 36.7 C (98.1 F) TempSrc: Oral Oral Oral Oral SpO2: 98% 97% 97% 97% Weight: Height: General: Alert, oriented x 3 and in no obvious distress Psychiatric: Has a normal mood and affect. HEENT: Head normocephalic. Eyes: Conjunctivae and EOM are normal. Pupils are equal, round and reactive to light. Cardiovascular: Normal rate, regular rhythm and normal heart sounds. No JVD. Pulmonary/Chest: Air entry bilaterally equal. No wheezes or rales. Abdominal: Soft, bowel sounds are normal and there was no tenderness rebound or guarding. Musculoskeletal: Normal range of motion. No tenderness. Neurological: No obvious deficits. Skin: Generalized eczema noted Extremities: No edema Meds: Current Meds: amLODIPine, 5 mg, oral, Daily ammonium lactate, 1 Application, topical, BID ARIPiprazole, 2 mg, oral, Daily heparin (porcine), 5,000 Units, subcutaneous, Q12H VANESSA lacosamide, 100 mg, oral, BID levETIRAcetam, 500 mg, oral, BID nicotine, 1 patch, transdermal, Daily [START ON 11/12/2024] oseltamivir, 30 mg, oral, BID oseltamivir, 75 mg, oral, Once PARoxetine, 10 mg, oral, Daily Continuous Infusions: lactated ringer's, 200 mL/hr, Last Rate: 200 mL/hr (11/11/24 0838) Laboratory Studies Results from last 7 days Lab Units 11/11/24 0709 11/10/24 0611/09/24 1434 11/09/24 0307 SODIUM mmol/L 140 139 -- 140 POTASSIUM mmol/L 4.3 4.2 4.1 4.7 CHLORIDE mmol/L 104 101 -- 101 CO2 mmol/L 29 31 -- 30 BUN mg/dL 16 16 -- 22 CREATININE mg/dL 1.44* 1.48* -- 1.58* CALCIUM mg/dL 8.6 8.5 -- 8.8 PHOSPHORUS mg/dL 4.1 4.3 -- 4.1 MAGNESIUM mg/dL 1.5* 1.9 -- 1.7* Results from last 7 days Lab Units 11/11/24 0709 11/10/24 0611/09/24 0307 WBC X10E9/L 9.9 11.3* 10.4 HEMOGLOBIN g/dL 11.6* 12.4 12.0 HEMATOCRIT % 34.3* 37.4 34.5* PLATELETS X10E9/L 187 195 210 Results from last 7 days Lab Units 11/11/24 0709 11/10/24 0611/09/24 0307 MAGNESIUM mg/dL 1.5* 1.9 1.7* Lab Results Component Value Date CALCIUM 8.6 11/11/2024 Lab Results Component Value Date IRON 70 11/08/2024 TIBC 358 11/08/2024 FERRITIN 214 11/08/2024 Please contact me at [phone] (Office) or [phone] (Answering service) with any questions. Please feel free to contact me through [employer] Secure chat during the daytime hours, if no response after 5 minutes then call the answering service. Nestor Ramsey MD [facility] This note was created with the assistance of a speech-recognition program. Although the intention is to generate a document that actually reflects the content of the visit, no guarantees can be provided that every mistake has been identified and corrected by editing. Images from the original note were not included. Division of Infectious Diseases - Progress Note Infectious Diseases Patient name: Yolanda Ma Back Patient Today's Date and Time: 11/11/2024, 12:45 PM Admission Date: 11/05/2024 Primary Care Physician: OTTONIEL ARIAS MD Impression and Recommendations: Fever Influenza A New low grade fevers RPP +influenza A Started on Tamiflu Supportive care No objection to discharge from ID standpoint Sepsis with encephalopathy Presented with fever, leukocytosis, altered mental status and seizure Unsuccessful LP outpatient Suspected source is intra abdominal. CT showed possible colitis/enteritis No diarrhea. Enterovirus pcr negative Monitoring off antibiotics Rash Returned on bilateral arms. Suspect secondary to viral illness. Seizure Neurology following Rhabdomyolysis RAKESH Nephrology following Subjective Interval History: Patient seen and examined at bedside. Awake and alert. New bilateral arm rash. No fever, chills or sweats. No shortness of breath or cough. No nausea, vomiting or diarrhea Objective Physical Examination : BP 124/69 Pulse 85 Temp 36.7 C (98.1 F) (Oral) Resp 20 Ht 162.6 cm (5' 4.02 ) Wt 92.4 kg (203 lb 11.3 oz) SpO2 97% BMI 34.95 kg/m Temperature Range: Temp: 36.7 C (98.1 F) Temp Av.1 C (98.7 F) Min: 36.7 C (98.1 F) Max: 37.8 C (100 F) General Appearance: Awake, alert, and in no apparent distress Eyes: Sclera anicteric; conjunctivae pink ENT: Oropharynx clear, without erythema, exudate, or thrush. Neck: Supple, without lymphadenopathy. Pulmonary/Chest: Clear to auscultation, without wheezes, rales, or rhonchi Cardiovascular: Regular rate and rhythm without murmurs, rubs, or gallops. Abdomen: Soft, nontender, nondistended. Extremities: No cyanosis, clubbing, edema, or effusions. Neurologic: Bulk and tone are normal. No atrophy is noted. Skin: No rash or lesions. Laboratory data: I have independently reviewed the following labs: Results from last 7 days Lab Units 11/11/24 0709 11/10/24 0600 11/09/24 0307 11/08/24 0610 WBC X10E9/L 9.9 11.3* 10.4 11.0 HEMOGLOBIN g/dL 11.6* 12.4 12.0 9.5* HEMATOCRIT % 34.3* 37.4 34.5* 27.9* MCV fL 90 90 90 90 PLATELETS X10E9/L 187 195 210 203 NEUTROS ABS X10E9/L 6.3 -- 8.0* 8.3* NEUTROS ABS MAN X10E9/L -- 7.9* -- -- LYMPHS ABS AUTO X10E9/L 1.7 -- 1.3 1.8 MONOS ABS AUTO X10E9/L 0.8 -- 0.8 0.9 EOS ABS AUTO X10E9/L 1.0* -- 0.2 0.0 EOS ABS MAN X10E9/L -- 1.1* -- -- BASOS ABS AUTO X10E9/L 0.1 -- 0.0 0.0 Results from last 7 days Lab Units 11/11/24 0709 11/10/24 0600 11/09/24 1434 11/09/24 0307 SODIUM mmol/L 140 139 -- 140 POTASSIUM mmol/L 4.3 4.2 4.1 4.7 CHLORIDE mmol/L 104 101 -- 101 CO2 mmol/L 29 31 -- 30 BUN mg/dL 16 16 -- 22 CREATININE mg/dL 1.44* 1.48* -- 1.58* CALCIUM mg/dL 8.6 8.5 -- 8.8 ALBUMIN g/dL 3.3 3.7 -- 3.7 ALK PHOS U/L 123 155* -- 143* ALT U/L 398* 646* -- 838* AST U/L 179* 389* -- 764* Results from last 7 days Lab Units 11/06/24 1656 11/06/24 0957 11/05/24 0158 11/04/24 1654 PROCALCITONIN ng/mL -- -- 38.12* 40.05* CRP mg/dL -- 5.1* -- 1.2* TOXIGENIC C DIFF Negative -- -- -- Results from last 7 days Lab Units 11/06/24 1100 11/04/24 2308 COLOR YELLOW -- TURBIDITY CLEAR -- SPECIFIC GRAVITY 1.009 -- SPECIFIC GRAVITY KRISTA -- 1.010 NITRITE Negative -- NITRITE KRISTA -- Negative PH URINE 6.5 -- PH KRISTA -- 5.5 LEUKOCYTE ESTERASE Negative -- LEUKOCYTE ESTERASE KRISTA -- Trace* PROTEIN mg/dL 70* -- PROTEIN KRISTA mg/dL -- 100* KETONES (URINE) mg/dL Negative -- KETONES KRISTA mg/dL -- Negative UROBILINOGEN eu/dL <1.1 -- UROBILINOGEN KRISTA eu/dL -- 0.2 BLDHGB Large* -- POC HGB -- Large* RBC UA /hpf <1 -- WBC UA /hpf 1 -- No results found. Imaging Studies: I have personally reviewed this study. Cultures: Microbiology Results Procedure Component Value Units Date/Time Resp Pathogens Panel/SARS CoV-2 [[id number]] (Abnormal) Collected: 11/11/24 0840 Specimen: Nasopharynx Updated: 11/11/24 1036 Specimen Source NASO PHARYNX Adenovirus Detection by PCR Not Detected Coronavirus 229e Not Detected Coronavirus hku1 Not Detected Coronavirus nl63 Not Detected Coronavirus oc43 Not Detected Human metapneumovirus Not Detected Rhinovirus/enterovirus Not Detected Influenza A 2008 h1 Detected Influenza B Not Detected Parainfluenza 1 Not Detected Parainfluenza 2 Not Detected Parainfluenza 3 Not Detected Parainfluenza 4 Not Detected Respiratory syncytial virus Not Detected Bordetella parapertussis Not Detected Bordetella pertussis Not Detected Chlamydophila pneumophilia Not Detected Mycoplasma pneumoniae Not Detected SARS COV 2 Not Detected Resp Pathogens Panel/SARS CoV-2 [[id number]] Collected: 11/05/24 0156 Specimen: Nasopharynx Updated: 11/05/24 0315 Specimen Source NASO PHARYNX Adenovirus Detection by PCR Not Detected Coronavirus 229e Not Detected Coronavirus hku1 Not Detected Coronavirus nl63 Not Detected Coronavirus oc43 Not Detected Human metapneumovirus Not Detected Rhinovirus/enterovirus Not Detected Influenza A Not Detected Influenza B Not Detected Parainfluenza 1 Not Detected Parainfluenza 2 Not Detected Parainfluenza 3 Not Detected Parainfluenza 4 Not Detected Respiratory syncytial virus Not Detected Bordetella parapertussis Not Detected Bordetella pertussis Not Detected Chlamydophila pneumophilia Not Detected Mycoplasma pneumoniae Not Detected SARS COV 2 Not Detected Mrsa Pcr nasal swab [[id number]] Collected: 11/05/24 0156 Specimen: Nasal Updated: 11/05/24 0340 Mrsa PCR Negative Urine culture [[id number]] Collected: 11/04/24 225 Specimen: Urine, Clean Catch Midstream Updated: 11/06/24 1422 Culture 10,000 to 50,000 ORGANISMS/mL NORMAL URO GENITAL RAYMOND SARS/FLU A+B/RSV by NAAT/Molecular (M4RT Collection Tube) [[id number]] Collected: 11/04/24 191 Specimen: Nasopharynx Updated: 11/04/242005 FLU A PCR Negative FLU B PCR Negative RSV by PCR Negative SARS CoV 2 BY PCR Not Detected Blood culture [[id number]] Collected: 11/04/24 1812 Specimen: Blood Updated: 11/09/24 2238 Culture NO GROWTH 5 DAYS Blood culture [[id number]] Collected: 11/04/24 1715 Specimen: Blood Updated: 11/09/24 2240 Culture NO GROWTH 5 DAYS Medications: amLODIPine, 5 mg, oral, Daily ammonium lactate, 1 Application, topical, BID ARIPiprazole, 2 mg, oral, Daily heparin (porcine), 5,000 Units, subcutaneous, Q12H VANESSA lacosamide, 100 mg, oral, BID levETIRAcetam, 500 mg, oral, BID nicotine, 1 patch, transdermal, Daily [START ON 11/12/2024] oseltamivir, 30 mg, oral, BID oseltamivir, 75 mg, oral, Once PARoxetine, 10 mg, oral, Daily Thank you for allowing us to participate in the care of this patient. Please call with questions. VIJAYA Griffith From 7AM-7PM: Our team prefers to use [employer] for communication. From 7PM-7AM: Please call for our answering service. VIJAYA Lazar 11/11/24 7114 [facility] Department of Pharmacy Pharmacist to Physician Communication The dose of oseltamivir for influenza A has been changed to 75 mg once followed by 30 mg every 12 hours per the [facility] approved renal dosing guidelines, based on an estimated creatinine clearance is 52 mL/min (A) (by C-G formula based on SCr of 1.44 mg/dL (H)). Thank you, Esau Barboza RPH Images from the original note were not included. Principal Problem: Seizure (CMS-HCC) Chief Complaint: Low-grade fever, congestion, rash seems to be coming back ASSESSMENT AND PLAN: Patient is a 24-year-old female with known Hx/o Seizure disorder, Depression/Anxiety, Eczema, Gastritis, former smoker initially admitted to ICU presented on 11/04/2024 with recurrent seizures, rash. Once stabilized was transferred to floor under [facility] as primary on 11/07/2024. 1. Breakthrough seizure likely secondary to medication nonadherence. Appreciate Neurology input. Continue Keppra/Vimpat. Benzocaine spray t.i.d. p.r.n. for pain at the site of tongue bite. 2. Altered mental status likely multifactorial secondary to seizures/postictal/acute metabolic encephalopathy. Resolved. 3. Acute nontraumatic rhabdomyolysis possibly related to seizures rule out serotonin syndrome(fever, diarrhea, seizure). Continue IV fluids. Psych clearance to reinitiate medication with Paxil at lower dose. Check CK, myoglobin daily. 4. Acute renal failure likely secondary to rhabdomyolysis. Improving. Appreciate Nephrology follow-up. Continue IV fluids, avoid nephrotoxins medications. 5. Low-grade fever, chills, congestion, diarrhea. Check respiratory pathogen panel, chest x-ray. Blood cultures have been negative. Appreciate ID follow-up, monitoring off antibiotics. Enterovirus PCR negative GI panel, C diff negative. 6. New onset extremity and truncal rash prior to seizure episode and admission likely secondary to eczema. Appreciate Rheumatology input. Amlactin cream b.i.d. at site of rash/Benadryl p.r.n.. 7. Transaminitis likely secondary to rhabdomyolysis. Improving. Monitor. 8. Acute normocytic anemia rule out blood loss/dilutional effect with IV hydration. Normal vitamin B12, folate, ferritin, iron profile, total bilirubin. Monitor for any active bleeding. Transfuse if hemoglobin less than 7. Hold heparin if patient having any active bleeding. 9. Hypokalemia. Replaced. 10. Hx/o Depression/Anxiety. Stable. Restarted on Abilify, low-dose Paxil per psych recommendations 11. Smoking cessation. Nicotine patch. 12. DVT prophylaxis. Heparin. Rest of medical issues are stable. CODE STATUS: FULL CODE. DISCHARGE DISPOSITION: Home Pending improvement in rhabdomyolysis, renal failure, LFTs, fever/chills, diarrhea. Dietary Orders (From admission, onward) Start Ordered 11/07/24 1028 Adult diet Regular Texture Diet effective now Question: Diet Type: Answer: Regular Texture 11/07/24 1028 SUBJECTIVE: Patient awake oriented x3 does not be in distress, mentions diarrhea 2-3 bowel movements since yesterday, overnight had low-grade fever associated with chills, complains of nasal congestion and dry cough but no chest pain, shortness of breath, abdominal pain, no nausea and vomiting, tolerating diet. Rash related to her eczema seems to be coming back again today mostly presently involving upper extremities and mild areas of rash on lower extremities. OBJECTIVE Vitals: 11/11/24 1111 BP: 124/69 Pulse: 85 Resp: 20 Temp: 36.7 C (98.1 F) SpO2: 97% PHYSICAL EXAM: GENERAL: patient awake oriented x 3, does not appear in distress. HEENT: pale, no icterus, NECK: supple, CVS: s1,s2 heard no murmurs, rubs or gallops RESPIRATORY: B/l airway entry with no crackles or wheezing ABDOMINAL: soft non tender, non distended with bowel sounds heard, EXTREMITIES: no pedal edema with peripheral pulses palpable NEURO: strength 5/5 all 4 extremities, SKIN: Rash noted on upper extremity, few areas on lower extremities related to eczema. Recent Results (from the past 24 hours) Phosphorus Collection Time: 11/11/24 7:09 AM Result Value Ref Range Phosphorus 4.1 2.4 - 4.9 mg/dL Magnesium Collection Time: 11/11/24 7:09 AM Result Value Ref Range Magnesium 1.5 (L) 1.8 - 2.6 mg/dL CBC auto differential Collection Time: 11/11/24 7:09 AM Result Value Ref Range White Blood Cells 9.9 4.0 - 11.0 X10E9/L RBC count 3.81 3.80 - 5.20 X10E12/L Hemoglobin 11.6 (L) 11.7 - 15.5 g/dL Hematocrit 34.3 (L) 35 - 47 % MCV 90 80 - 100 fL MCH 30.5 27 - 34 pg MCHC 34.0 32 - 36 g/dL RDW 13.7 11.5 - 15.0 % Platelets 187 150 - 450 X10E9/L MPV 8.3 7 - 12 fL % neutrophils 64.0 % % lymphocytes 17.0 % % monocytes 8.3 % % eosinophils 10.1 % % Basophils 0.6 % Neutrophils Absolute (A) 6.3 1.5 - 6.6 X10E9/L Lymphocytes Absolute 1.7 1.0 - 3.5 X10E9/L Monocytes Absolute 0.8 0 - 0.9 X10E9/L Eosinophils Absolute 1.0 (H) 0.0 - 0.4 X10E9/L Basophils Absolute 0.1 0.0 - 0.2 X10E9/L Ionized calcium Collection Time: 11/11/24 7:09 AM Result Value Ref Range Calcium, ionized 4.7 4.5 - 5.3 mg/dL Comprehensive metabolic panel Collection Time: 11/11/24 7:09 AM Result Value Ref Range Sodium 140 134 - 146 mmol/L Potassium, Bld 4.3 3.5 - 5.0 mmol/L Chloride 104 98 - 109 mmol/L CO2 29 22 - 32 mmol/L Anion gap 7 5 - 15 mmol/L BUN 16 5 - 23 mg/dL Creatinine 1.44 (H) 0.40 - 1.00 mg/dL Glucose 95 65 - 99 mg/dL Calcium 8.6 8.5 - 10.5 mg/dL Total Protein 5.8 (L) 6.0 - 8.0 g/dL Albumin 3.3 3.2 - 5.3 g/dL Alkaline Phosphatase 123 39 - 130 U/L AST 179 (H) 0 - 41 U/L ALT 398 (H) 0 - 31 U/L Total bilirubin 0.5 0.3 - 1.2 mg/dL eGFR (CKD-EPI)non-race dependent 52 (L) >59 ml/min/1.73sq.m CK Total Collection Time: 11/11/24 7:09 AM Result Value Ref Range Total CK 6,889 (H) 24 - 170 U/L Myoglobin, serum Collection Time: 11/11/24 7:09 AM Result Value Ref Range Myoglobin 423.2 (H) 14.3 - 65.8 ng/mL Resp Pathogens Panel/SARS CoV-2 Collection Time: 11/11/24 8:40 AM Result Value Ref Range Specimen Source NASO PHARYNX Adenovirus Detection by PCR Not Detected Not Detected^Not Detected Coronavirus 229e Not Detected Not Detected^Not Detected Coronavirus hku1 Not Detected Not Detected^Not Detected Coronavirus nl63 Not Detected Not Detected^Not Detected Coronavirus oc43 Not Detected Not Detected^Not Detected Human metapneumovirus Not Detected Not Detected^Not Detected Rhinovirus/enterovirus Not Detected Not Detected^Not Detected Influenza A 2009 h1 Detected (A) Not Detected^Not Detected Influenza B Not Detected Not Detected^Not Detected Parainfluenza 1 Not Detected Not Detected^Not Detected Parainfluenza 2 Not Detected Not Detected^Not Detected Parainfluenza 3 Not Detected Not Detected^Not Detected Parainfluenza 4 Not Detected Not Detected^Not Detected Respiratory syncytial virus Not Detected Not Detected^Not Detected Bordetella parapertussis Not Detected Not Detected^Not Detected Bordetella pertussis Not Detected Not Detected^Not Detected Chlamydophila pneumophilia Not Detected Not Detected^Not Detected Mycoplasma pneumoniae Not Detected Not Detected^Not Detected SARS COV 2 Not Detected Not Detected^Not Detected MICROBIOLOGY: Microbiology Results Procedure Component Value Units Date/Time Resp Pathogens Panel/SARS CoV-2 [[id number]] (Abnormal) Collected: 11/11/24 0840 Specimen: Nasopharynx Updated: 11/11/24 1036 Specimen Source NASO PHARYNX Adenovirus Detection by PCR Not Detected Coronavirus 229e Not Detected Coronavirus hku1 Not Detected Coronavirus nl63 Not Detected Coronavirus oc43 Not Detected Human metapneumovirus Not Detected Rhinovirus/enterovirus Not Detected Influenza A 2009 h1 Detected Influenza B Not Detected Parainfluenza 1 Not Detected Parainfluenza 2 Not Detected Parainfluenza 3 Not Detected Parainfluenza 4 Not Detected Respiratory syncytial virus Not Detected Bordetella parapertussis Not Detected Bordetella pertussis Not Detected Chlamydophila pneumophilia Not Detected Mycoplasma pneumoniae Not Detected SARS COV 2 Not Detected Resp Pathogens Panel/SARS CoV-2 [[id number]] Collected: 11/05/24 0156 Specimen: Nasopharynx Updated: 11/05/24 0315 Specimen Source NASO PHARYNX Adenovirus Detection by PCR Not Detected Coronavirus 229e Not Detected Coronavirus hku1 Not Detected Coronavirus nl63 Not Detected Coronavirus oc43 Not Detected Human metapneumovirus Not Detected Rhinovirus/enterovirus Not Detected Influenza A Not Detected Influenza B Not Detected Parainfluenza 1 Not Detected Parainfluenza 2 Not Detected Parainfluenza 3 Not Detected Parainfluenza 4 Not Detected Respiratory syncytial virus Not Detected Bordetella parapertussis Not Detected Bordetella pertussis Not Detected Chlamydophila pneumophilia Not Detected Mycoplasma pneumoniae Not Detected SARS COV 2 Not Detected Mrsa Pcr nasal swab [[id number]] Collected: 11/05/24 0156 Specimen: Nasal Updated: 11/05/24 0340 Mrsa PCR Negative Urine culture [[id number]] Collected: 11/04/24 2257 Specimen: Urine, Clean Catch Midstream Updated: 11/06/24 1422 Culture 10,000 to 50,000 ORGANISMS/mL NORMAL URO GENITAL RAYMOND SARS/FLU A+B/RSV by NAAT/Molecular (M4RT Collection Tube) [[id number]] Collected: 11/04/24 1913 Specimen: Nasopharynx Updated: 11/04/24 2006 FLU A PCR Negative FLU B PCR Negative RSV by PCR Negative SARS CoV 2 BY PCR Not Detected Blood culture [[id number]] Collected: 11/04/24 1812 Specimen: Blood Updated: 11/09/24 2238 Culture NO GROWTH 5 DAYS Blood culture [[id number]] Collected: 11/04/24 1715 Specimen: Blood Updated: 11/09/24 2240 Culture NO GROWTH 5 DAYS EEG: This EEG in the awake and asleep states is abnormal due to the presence of generalized background slowing suggestive of bi-hemispheric cerebral dysfunction that can be seen in post ictal states, metabolic, hypoxic or toxic encephalopathies, sedative medication use or primary neurological disorde CT BRAIN WITHOUT CONTRAST: No acute or subacute intracranial abnormalities. CT ABDOMEN PELVIS WITHOUT CONTRAST: Substantial liquid stool throughout much of the large bowel, suspect underlying colitis/enteritis. Similarly, distal esophageal wall thickening, correlate for clinical signs of esophagitis. No high-grade transition point to suggest obstruction. CHEST X-RAY: No acute pulmonary process. Hypoventilation with bronchovascular crowding. SCHEDULED MEDICATIONS: amLODIPine, 5 mg, oral, Daily ammonium lactate, 1 Application, topical, BID ARIPiprazole, 2 mg, oral, Daily heparin (porcine), 5,000 Units, subcutaneous, Q12H VANESSA lacosamide, 100 mg, oral, BID levETIRAcetam, 500 mg, oral, BID nicotine, 1 patch, transdermal, Daily PARoxetine, 10 mg, oral, Daily P.R.N. MEDICATIONS: acetaminophen benzocaine calcium gluconate calcium gluconate calcium gluconate OR [DISCONTINUED] calcium gluconate OR [DISCONTINUED] calcium gluconate calcium gluconate dextrose dextrose 50 % in water (D50W) diphenhydrAMINE glucagon (human recombinant) magnesium sulfate magnesium sulfate ondansetron potassium chloride OR potassium chloride OR potassium chloride IV (Adult) This note was completed using a voice opener system. Every effort was made to ensure accuracy. However, inadvertent computerized opener errors may be present. Images from the original note were not included. FOLLOW-UP: Post-Intensive Care Rounding Note Patient: Yolanda Summer Back : 2000 Age: 24 y.o. Length of Stay: 5 days Admission Diagnosis: Seizure ([facility]) [R56.9] Electrolyte abnormality [E87.8] Reviewing patient due to her recent transfer out from Intensive Care. Recorded vital signs are stable and the patient is not noted to be in any apparent distress. Telemetry and monitoring noted. Staff may call with any issues or concerns regarding her clinical presentation or stability. Thank you, Carline Willard RN Rapid Response: [facility] Images from the original note were not included. FOLLOW-UP: Post-Intensive Care Rounding Note Patient: Yolanda Ma Back : 2000 Age: 24 y.o. Length of Stay: 5 days Admission Diagnosis: Seizure ([facility]) [R56.9] Reviewing patient due to her recent transfer out from Intensive Care. Recorded vital signs are stable and the patient is not noted to be in any apparent distress. Telemetry and monitoring noted. Staff may call with any issues or concerns regarding her clinical presentation or stability. Thank you, Devon Liu RN Rapid Response: [facility] Images from the original note were not included. NEPHROLOGY PROGRESS NOTE Assessment 1. Acute kidney injury attributed to rhabdomyolysis, renal function improving with creatinine down and plateaued at 1.5 mg/dL She is nonoliguric 2. Rhabdomyolysis in the setting of recent seizure disorder, CPK and myoglobin level trending down nicely Concern for serotonin syndrome, she is currently off Paxil. 3. Encephalopathy in the setting of sepsis and recent seizure episode has resolved 4. Seizure disorder on antiepileptic agents 5. Sepsis with finding of colitis/ enteritis on CT scan on Rocephin and Flagyl. 6. Maculopapular rash involving trunk/extremities on background of eczema being monitored. No evidence of eosinophilia. The rash has resolved. Rheumatology suspects this may just have been a flare-up of the eczema. 7. Volume status: We have her on LR at 150. mL/hour to flush out CPK/myoglobin Plan 1. Increase LR to 200 mL/hour Subjective/Interval history no events Problem List Acute kidney injury attributed to rhabdomyolysis. Creatinine baseline 0.6 mg/dL. Renal workup is pending. Rhabdomyolysis in the setting of seizures Seizure disorder Sepsis with finding of possible colitis/enteritis as esophagitis on CT scan 11/04/2024 Maculopapular rash involving trunk and extremities with background of eczema Hepatic steatosis noted on CT scan October 2024 Depression GERD Physical Exam Admission Weight: Weight: 91.9 kg (202 lb 9.6 oz) No intake/output data recorded. Weight change: -0.6 kg (-1 lb 5.2 oz) Wt Readings from Last 3 Encounters: 11/10/24 92.4 kg (203 lb 11.3 oz) 11/04/24 81.6 kg (180 lb) 07/12/24 81.6 kg (180 lb) Vitals: Vitals: 11/09/24 2307 11/10/24 0313 11/10/24 0500 11/10/24 0838 BP: 133/77 112/74 127/85 Pulse: 69 88 76 Resp: 16 15 Temp: 36.8 C (98.3 F) 37.2 C (99 F) 36.6 C (97.8 F) TempSrc: Oral Oral Oral SpO2: 96% 93% 98% Weight: 92.4 kg (203 lb 11.3 oz) Height: General: Alert, oriented x 3 and in no obvious distress Psychiatric: Has a normal mood and affect. HEENT: Head normocephalic. Eyes: Conjunctivae and EOM are normal. Pupils are equal, round and reactive to light. Cardiovascular: Normal rate, regular rhythm and normal heart sounds. No JVD. Pulmonary/Chest: Air entry bilaterally equal. No wheezes or rales. Abdominal: Soft, bowel sounds are normal and there was no tenderness rebound or guarding. Musculoskeletal: Normal range of motion. No tenderness. Neurological: No obvious deficits. Skin: Generalized eczema noted Extremities: No edema Meds: Current Meds: amLODIPine, 5 mg, oral, Daily ARIPiprazole, 2 mg, oral, Daily heparin (porcine), 5,000 Units, subcutaneous, Q12H VANESSA lacosamide, 100 mg, oral, BID levETIRAcetam, 500 mg, oral, BID nicotine, 1 patch, transdermal, Daily PARoxetine, 10 mg, oral, Daily Continuous Infusions: lactated ringer's, 150 mL/hr, Last Rate: 150 mL/hr (11/09/24 0170) Laboratory Studies Results from last 7 days Lab Units 11/10/24 0600 11/09/24 1434 11/09/24 0307 11/08/24 1215 11/08/24 0610 SODIUM mmol/L 139 -- 140 -- 141 POTASSIUM mmol/L 4.2 4.1 4.7 < > 3.3* CHLORIDE mmol/L 101 -- 101 -- 108 CO2 mmol/L 31 -- 30 -- 28 BUN mg/dL 16 -- 22 -- 24* CREATININE mg/dL 1.48* -- 1.58* -- 1.51* CALCIUM mg/dL 8.5 -- 8.8 -- 7.7* PHOSPHORUS mg/dL 4.3 -- 4.1 -- 2.7 MAGNESIUM mg/dL 1.9 -- 1.7* -- 1.9 < > = values in this interval not displayed. Results from last 7 days Lab Units 11/10/24 0600 11/09/24 0307 11/08/24 0610 WBC X10E9/L 11.3* 10.4 11.0 HEMOGLOBIN g/dL 12.4 12.0 9.5* HEMATOCRIT % 37.4 34.5* 27.9* PLATELETS X10E9/L 195 210 203 Results from last 7 days Lab Units 11/10/24 0600 11/09/24 0307 11/08/24 0610 MAGNESIUM mg/dL 1.9 1.7* 1.9 Lab Results Component Value Date CALCIUM 8.5 11/10/2024 Lab Results Component Value Date IRON 70 11/08/2024 TIBC 358 11/08/2024 FERRITIN 214 11/08/2024 Please contact me at [phone] (Office) or [phone] (Answering service) with any questions. Please feel free to contact me through [employer] Secure chat during the daytime hours, if no response after 5 minutes then call the answering service. Nestor Ramsey MD [facility] This note was created with the assistance of a speech-recognition program. Although the intention is to generate a document that actually reflects the content of the visit, no guarantees can be provided that every mistake has been identified and corrected by editing. Images from the original note were not included. Division of Infectious Diseases - Progress Note Infectious Diseases Patient name: Yolanda Villanueva Patient Today's Date and Time: 11/10/2024, 10:12 AM Admission Date: 11/05/2024 Primary Care Physician: OTTONIEL ARIAS MD Impression and Recommendations: Sepsis with encephalopathy Presented with fever, leukocytosis, altered mental status and seizure Unsuccessful LP outpatient Suspected source is intra abdominal. CT showed possible colitis/enteritis Clinically improving. No fever. WBC normalized today. No diarrhea. Enterovirus pcr negative Monitoring off antibiotics She had a low grade fever last night. 37.8C. WBC slightly elevated to 11.3. she reports feeling congested. If she has another temp, we can send RPP and check chest xray. Rash Resolved Possibly related to viral illness such as enterovirus or drug rash from [facility] Seizure Neurology following Rhabdomyolysis RAKESH Nephrology following Subjective Interval History: Patient seen and examined at bedside. Awake and alert. Reports rash has resolved. No fever, chills or sweats. No shortness of breath or cough. No nausea, vomiting or diarrhea Objective Physical Examination : BP 127/85 Pulse 76 Temp 36.6 C (97.8 F) (Oral) Resp 15 Ht 162.6 cm (5' 4.02 ) Wt 92.4 kg (203 lb 11.3 oz) SpO2 98% BMI 34.95 kg/m Temperature Range: Temp: 36.6 C (97.8 F) Temp Av.1 C (98.8 F) Min: 36.6 C (97.8 F) Max: 37.9 C (100.2 F) General Appearance: Awake, alert, and in no apparent distress Eyes: Sclera anicteric; conjunctivae pink ENT: Oropharynx clear, without erythema, exudate, or thrush. Neck: Supple, without lymphadenopathy. Pulmonary/Chest: Clear to auscultation, without wheezes, rales, or rhonchi Cardiovascular: Regular rate and rhythm without murmurs, rubs, or gallops. Abdomen: Soft, nontender, nondistended. Extremities: No cyanosis, clubbing, edema, or effusions. Neurologic: Bulk and tone are normal. No atrophy is noted. Skin: No rash or lesions. Laboratory data: I have independently reviewed the following labs: Results from last 7 days Lab Units 11/10/24 0600 11/09/24 0307 11/08/24 0610 11/07/24 0304 WBC X10E9/L 11.3* 10.4 11.0 18.1* HEMOGLOBIN g/dL 12.4 12.0 9.5* 10.5* HEMATOCRIT % 37.4 34.5* 27.9* 30.8* MCV fL 90 90 90 90 PLATELETS X10E9/L 195 210 203 243 NEUTROS ABS X10E9/L -- 8.0* 8.3* 16.3* NEUTROS ABS MAN X10E9/L 7.9* -- -- -- LYMPHS ABS AUTO X10E9/L -- 1.3 1.8 0.9* MONOS ABS AUTO X10E9/L -- 0.8 0.9 0.8 EOS ABS AUTO X10E9/L -- 0.2 0.0 0.0 EOS ABS MAN X10E9/L 1.1* -- -- -- BASOS ABS AUTO X10E9/L -- 0.0 0.0 0.1 Results from last 7 days Lab Units 11/10/24 0600 11/09/24 1434 11/09/24 0307 11/08/24 1215 11/08/24 0610 11/07/24 1130 11/07/24 0735 11/07/24 0304 SODIUM mmol/L 139 -- 140 -- 141 -- -- 142 POTASSIUM mmol/L 4.2 4.1 4.7 < > 3.3* < > 3.8 4.1 CHLORIDE mmol/L 101 -- 101 -- 108 -- -- 103 CO2 mmol/L 31 -- 30 -- 28 -- -- 31 BUN mg/dL 16 -- 22 -- 24* -- -- 29* CREATININE mg/dL 1.48* -- 1.58* -- 1.51* -- -- 2.00* CALCIUM mg/dL 8.5 -- 8.8 -- 7.7* -- -- 8.4* ALBUMIN g/dL 3.7 -- 3.7 -- -- -- 3.4 3.8 ALK PHOS U/L 155* -- 143* -- -- -- -- 61 ALT U/L 646* -- 838* -- -- -- -- 1,446* AST U/L 389* -- 764* -- -- -- -- 783* < > = values in this interval not displayed. Results from last 7 days Lab Units 11/06/24 1656 11/06/24 0957 11/05/24 0158 11/04/24 1654 PROCALCITONIN ng/mL -- -- 38.12* 40.05* CRP mg/dL -- 5.1* -- 1.2* TOXIGENIC C DIFF Negative -- -- -- Results from last 7 days Lab Units 11/06/24 1100 11/04/24 2308 COLOR YELLOW -- TURBIDITY CLEAR -- SPECIFIC GRAVITY 1.009 -- SPECIFIC GRAVITY KRISTA -- 1.010 NITRITE Negative -- NITRITE KRISTA -- Negative PH URINE 6.5 -- PH KRISTA -- 5.5 LEUKOCYTE ESTERASE Negative -- LEUKOCYTE ESTERASE KRISTA -- Trace* PROTEIN mg/dL 70* -- PROTEIN KRISTA mg/dL -- 100* KETONES (URINE) mg/dL Negative -- KETONES KRISTA mg/dL -- Negative UROBILINOGEN eu/dL <1.1 -- UROBILINOGEN KRISTA eu/dL -- 0.2 BLDHGB Large* -- POC HGB -- Large* RBC UA /hpf <1 -- WBC UA /hpf 1 -- No results found. Imaging Studies: I have personally reviewed this study. Cultures: Microbiology Results Procedure Component Value Units Date/Time Resp Pathogens Panel/SARS CoV-2 [[id number]] Collected: 11/05/24155 Specimen: Nasopharynx Updated: 11/05/24314 Specimen Source NASO PHARYNX Adenovirus Detection by PCR Not Detected Coronavirus 229e Not Detected Coronavirus hku1 Not Detected Coronavirus nl63 Not Detected Coronavirus oc43 Not Detected Human metapneumovirus Not Detected Rhinovirus/enterovirus Not Detected Influenza A Not Detected Influenza B Not Detected Parainfluenza 1 Not Detected Parainfluenza 2 Not Detected Parainfluenza 3 Not Detected Parainfluenza 4 Not Detected Respiratory syncytial virus Not Detected Bordetella parapertussis Not Detected Bordetella pertussis Not Detected Chlamydophila pneumophilia Not Detected Mycoplasma pneumoniae Not Detected SARS COV 2 Not Detected Mrsa Pcr nasal swab [[id number]] Collected: 11/05/24 0156 Specimen: Nasal Updated: 11/05/24 0340 Mrsa PCR Negative Urine culture [[id number]] Collected: 11/04/24 2257 Specimen: Urine, Clean Catch Midstream Updated: 11/06/24 1422 Culture 10,000 to 50,000 ORGANISMS/mL NORMAL URO GENITAL RAYMOND SARS/FLU A+B/RSV by NAAT/Molecular (M4RT Collection Tube) [[id number]] Collected: 11/04/24 191 Specimen: Nasopharynx Updated: 11/04/242005 FLU A PCR Negative FLU B PCR Negative RSV by PCR Negative SARS CoV 2 BY PCR Not Detected Blood culture [[id number]] Collected: 11/04/24 1812 Specimen: Blood Updated: 11/09/24 2238 Culture NO GROWTH 5 DAYS Blood culture [[id number]] Collected: 11/04/24 1715 Specimen: Blood Updated: 11/09/24 2240 Culture NO GROWTH 5 DAYS Medications: amLODIPine, 5 mg, oral, Daily ARIPiprazole, 2 mg, oral, Daily heparin (porcine), 5,000 Units, subcutaneous, Q12H VANESSA lacosamide, 100 mg, oral, BID levETIRAcetam, 500 mg, oral, BID nicotine, 1 patch, transdermal, Daily PARoxetine, 10 mg, oral, Daily Thank you for allowing us to participate in the care of this patient. Please call with questions. VIJAYA Griffith From 7AM-7PM: Our team prefers to use [employer] for communication. From 7PM-7AM: Please call for our answering service. VIJAYA Lazar 11/08/24 1131 VIJAYA Lazar 11/09/24 1651 VIJAYA Lazar 11/10/24 1336 Principal Problem: Seizure (CMS-HCC) Chief Complaint: Diarrhea is better, 2 bowel movements since yesterday, complains of pain at the site where she bit her tongue ASSESSMENT AND PLAN: Patient is a 24-year-old female with known Hx/o Seizure disorder, Depression/Anxiety, Eczema, Gastritis, former smoker initially admitted to ICU presented on 11/04/2024 with recurrent seizures, rash. Once stabilized was transferred to floor under [facility] as primary on 11/07/2024. 1. Breakthrough seizure likely secondary to medication nonadherence. Appreciate Neurology input. Continue Keppra/Vimpat. 2. Altered mental status likely multifactorial secondary to seizures/postictal/acute metabolic encephalopathy. Resolved. 3. Acute nontraumatic rhabdomyolysis possibly related to seizures rule out serotonin syndrome(fever, diarrhea, seizure). Continue IV fluids. Psych clearance to reinitiate medication with Paxil at lower dose. Check CK, myoglobin daily. 4. Acute renal failure likely secondary to rhabdomyolysis. Improving. Appreciate Nephrology follow-up. Continue IV fluids, avoid nephrotoxins medications. 5. Sepsis with encephalopathy presented with fever, leukocytosis, altered mental status, seizure with unsuccessful LP outpatient possible source intra-abdominal with CT showing colitis/enteritis in patient with diarrhea. Blood cultures have been negative. Appreciate ID follow-up, monitoring off antibiotics. Enterovirus PCR pending. GI panel, C diff negative. 6. New onset extremity and truncal rash prior to seizure episode and admission likely secondary to eczema. Resolving. Appreciate Rheumatology input. 7. Transaminitis likely secondary to rhabdomyolysis. Improving. Monitor. 8. Acute normocytic anemia rule out blood loss/dilutional effect with IV hydration. Normal vitamin B12, folate, ferritin, iron profile, total bilirubin. Monitor for any active bleeding. Transfuse if hemoglobin less than 7. Hold heparin if patient having any active bleeding. 9. Hypokalemia. Replaced. 10. Hx/o Depression/Anxiety. Stable. Patient on Abilify/paroxetine/Effexor with low suspicion of serotonin syndrome, restarted on Abilify, low-dose Paxil per psych recommendations 11. Smoking cessation. Nicotine patch. 12. DVT prophylaxis. Heparin. Rest of medical issues are stable. Benzocaine spray t.i.d. p.r.n. for pain at the site of tongue bite. CODE STATUS: FULL CODE. DISCHARGE DISPOSITION: Home Pending improvement in rhabdomyolysis, renal failure, LFTs. Dietary Orders (From admission, onward) Start Ordered 11/07/24 1028 Adult diet Regular Texture Diet effective now Question: Diet Type: Answer: Regular Texture 11/07/24 1028 SUBJECTIVE: Patient awake oriented x3 does not be in distress, mentions diarrhea has improved with only 2 bowel movements since yesterday, complains of pain at the site where she bit her tongue, denies chest pain, shortness of breath, abdominal pain, no fever or chills overnight, no nausea and vomiting, tolerating diet. Rash related to her eczema seems to have improved, denies hemoptysis, hematemesis, gross hematuria. OBJECTIVE Vitals: 11/10/24 0313 BP: 112/74 Pulse: 88 Resp: Temp: 37.2 C (99 F) SpO2: 93% PHYSICAL EXAM: GENERAL: patient awake oriented x 3, does not appear in distress. HEENT: pale, no icterus, NECK: supple, CVS: s1,s2 heard no murmurs, rubs or gallops RESPIRATORY: B/l airway entry with no crackles or wheezing ABDOMINAL: soft non tender, non distended with bowel sounds heard, EXTREMITIES: no pedal edema with peripheral pulses palpable NEURO: strength 5/5 all 4 extremities, SKIN: Rash noted on upper extremity, trunk seems to have improved. Recent Results (from the past 24 hours) Potassium Collection Time: 11/09/24 2:34 PM Result Value Ref Range Potassium, Bld 4.1 3.5 - 5.0 mmol/L Ionized magnesium Collection Time: 11/09/24 2:34 PM Result Value Ref Range Magnesium, ionized 0.74 0.45 - 0.74 mmol/L Phosphorus Collection Time: 11/10/24 6:00 AM Result Value Ref Range Phosphorus 4.3 2.4 - 4.9 mg/dL Magnesium Collection Time: 11/10/24 6:00 AM Result Value Ref Range Magnesium 1.9 1.8 - 2.6 mg/dL CBC auto differential Collection Time: 11/10/24 6:00 AM Result Value Ref Range White Blood Cells 11.3 (H) 4.0 - 11.0 X10E9/L RBC count 4.15 3.80 - 5.20 X10E12/L Hemoglobin 12.4 11.7 - 15.5 g/dL Hematocrit 37.4 35 - 47 % MCV 90 80 - 100 fL MCH 29.8 27 - 34 pg MCHC 33.0 32 - 36 g/dL RDW 13.6 11.5 - 15.0 % Platelets 195 150 - 450 X10E9/L MPV 8.1 7 - 12 fL Myelocyte 3.0 % Metamyelocyte 2.0 % Band 1.0 % Seg neutrophil 68.0 % Lymphocyte 10.0 % Monocytes 6.0 % Eosinophil 10.0 % Neutrophils Absolute (M) 7.9 (H) 1.5 - 6.6 X10E9/L Lymphocytes Absolute 1.1 1.0 - 3.5 X10E9/L Monocytes Absolute 0.7 0 - 0.9 X10E9/L Eosinophils Absolute 1.1 (H) 0.0 - 0.4 X10E9/L RBC Morphology NORMAL Ionized calcium Collection Time: 11/10/24 6:00 AM Result Value Ref Range Calcium, ionized 4.6 4.5 - 5.3 mg/dL Comprehensive metabolic panel Collection Time: 11/10/24 6:00 AM Result Value Ref Range Sodium 139 134 - 146 mmol/L Potassium, Bld 4.2 3.5 - 5.0 mmol/L Chloride 101 98 - 109 mmol/L CO2 31 22 - 32 mmol/L Anion gap 7 5 - 15 mmol/L BUN 16 5 - 23 mg/dL Creatinine 1.48 (H) 0.40 - 1.00 mg/dL Glucose 92 65 - 99 mg/dL Calcium 8.5 8.5 - 10.5 mg/dL Total Protein 6.3 6.0 - 8.0 g/dL Albumin 3.7 3.2 - 5.3 g/dL Alkaline Phosphatase 155 (H) 39 - 130 U/L AST 389 (H) 0 - 41 U/L ALT 646 (H) 0 - 31 U/L Total bilirubin 0.8 0.3 - 1.2 mg/dL eGFR (CKD-EPI)non-race dependent 50 (L) >59 ml/min/1.73sq.m MICROBIOLOGY: Microbiology Results Procedure Component Value Units Date/Time Resp Pathogens Panel/SARS CoV-2 [[id number]] Collected: 11/05/24 0156 Specimen: Nasopharynx Updated: 11/05/24 0315 Specimen Source NASO PHARYNX Adenovirus Detection by PCR Not Detected Coronavirus 229e Not Detected Coronavirus hku1 Not Detected Coronavirus nl63 Not Detected Coronavirus oc43 Not Detected Human metapneumovirus Not Detected Rhinovirus/enterovirus Not Detected Influenza A Not Detected Influenza B Not Detected Parainfluenza 1 Not Detected Parainfluenza 2 Not Detected Parainfluenza 3 Not Detected Parainfluenza 4 Not Detected Respiratory syncytial virus Not Detected Bordetella parapertussis Not Detected Bordetella pertussis Not Detected Chlamydophila pneumophilia Not Detected Mycoplasma pneumoniae Not Detected SARS COV 2 Not Detected Mrsa Pcr nasal swab [[id number]] Collected: 11/05/24 0156 Specimen: Nasal Updated: 11/05/24 0340 Mrsa PCR Negative Urine culture [[id number]] Collected: 11/04/24 225 Specimen: Urine, Clean Catch Midstream Updated: 11/06/24 1422 Culture 10,000 to 50,000 ORGANISMS/mL NORMAL URO GENITAL RAYMOND SARS/FLU A+B/RSV by NAAT/Molecular (M4RT Collection Tube) [[id number]] Collected: 11/04/24 1913 Specimen: Nasopharynx Updated: 11/04/24 2006 FLU A PCR Negative FLU B PCR Negative RSV by PCR Negative SARS CoV 2 BY PCR Not Detected Blood culture [[id number]] Collected: 11/04/24 1812 Specimen: Blood Updated: 11/09/24 2238 Culture NO GROWTH 5 DAYS Blood culture [[id number]] Collected: 11/04/24 1715 Specimen: Blood Updated: 11/09/24 2240 Culture NO GROWTH 5 DAYS EEG: This EEG in the awake and asleep states is abnormal due to the presence of generalized background slowing suggestive of bi-hemispheric cerebral dysfunction that can be seen in post ictal states, metabolic, hypoxic or toxic encephalopathies, sedative medication use or primary neurological disorde CT BRAIN WITHOUT CONTRAST: No acute or subacute intracranial abnormalities. CT ABDOMEN PELVIS WITHOUT CONTRAST: Substantial liquid stool throughout much of the large bowel, suspect underlying colitis/enteritis. Similarly, distal esophageal wall thickening, correlate for clinical signs of esophagitis. No high-grade transition point to suggest obstruction. CHEST X-RAY: No acute pulmonary process. Hypoventilation with bronchovascular crowding. SCHEDULED MEDICATIONS: amLODIPine, 5 mg, oral, Daily ARIPiprazole, 2 mg, oral, Daily heparin (porcine), 5,000 Units, subcutaneous, Q12H VANESSA lacosamide, 100 mg, oral, BID levETIRAcetam, 500 mg, oral, BID nicotine, 1 patch, transdermal, Daily PARoxetine, 10 mg, oral, Daily P.R.N. MEDICATIONS: acetaminophen calcium gluconate calcium gluconate calcium gluconate OR [DISCONTINUED] calcium gluconate OR [DISCONTINUED] calcium gluconate calcium gluconate dextrose dextrose 50 % in water (D50W) glucagon (human recombinant) magnesium sulfate magnesium sulfate ondansetron potassium chloride OR potassium chloride OR potassium chloride IV (Adult) This note was completed using a voice opener system. Every effort was made to ensure accuracy. However, inadvertent computerized opener errors may be present. Images from the original note were not included. Post-Intensive Care Rounding Note Patient: Yolanda Villanueva : 2000 Age: 24 y.o. Length of Stay: 4 days Admission Diagnosis: Seizure ([facility]) [R56.9] Rapid response rounding on patient after transfer out of ICU. No acute changes noted. Staff encouraged to call with any issues, questions or concerns that may arise regarding the patient throughout the shift. Thank you, Prashant Griffiths RN Rapid Response: [facility] Images from the original note were not included. Division of Infectious Diseases - Progress Note Infectious Diseases Patient name: Yolanda Villanueva Patient Today's Date and Time: 11/09/2024, 11:41 AM Admission Date: 11/05/2024 Primary Care Physician: OTTONIEL ARIAS MD Impression and Recommendations: Sepsis with encephalopathy Presented with fever, leukocytosis, altered mental status and seizure Unsuccessful LP outpatient Suspected source is intra abdominal. CT showed possible colitis/enteritis Clinically improving. No fever. WBC normalized today. No diarrhea. Awaiting enterovirus pcr Monitoring off antibiotics Rash Resolved Possibly related to viral illness such as enterovirus or drug rash from [facility] Neurology following Rhabdomyolysis RAKESH Nephrology following Subjective Interval History: Patient seen and examined at bedside. Awake and alert. Reports rash has resolved. No fever, chills or sweats. No shortness of breath or cough. No nausea, vomiting or diarrhea Objective Physical Examination : BP 136/87 Pulse 75 Temp 36.9 C (98.4 F) (Oral) Resp 21 Ht 162.6 cm (5' 4.02 ) Wt 93 kg (205 lb 0.4 oz) SpO2 97% BMI 35.18 kg/m Temperature Range: Temp: 36.9 C (98.4 F) Temp Av.9 C (98.5 F) Min: 36.8 C (98.3 F) Max: 37 C (98.6 F) General Appearance: Awake, alert, and in no apparent distress Eyes: Sclera anicteric; conjunctivae pink ENT: Oropharynx clear, without erythema, exudate, or thrush. Neck: Supple, without lymphadenopathy. Pulmonary/Chest: Clear to auscultation, without wheezes, rales, or rhonchi Cardiovascular: Regular rate and rhythm without murmurs, rubs, or gallops. Abdomen: Soft, nontender, nondistended. Extremities: No cyanosis, clubbing, edema, or effusions. Neurologic: Bulk and tone are normal. No atrophy is noted. Skin: No rash or lesions. Laboratory data: I have independently reviewed the following labs: Results from last 7 days Lab Units 11/09/24 0307 11/08/24 0610 11/07/24 0304 WBC X10E9/L 10.4 11.0 18.1* HEMOGLOBIN g/dL 12.0 9.5* 10.5* HEMATOCRIT % 34.5* 27.9* 30.8* MCV fL 90 90 90 PLATELETS X10E9/L 210 203 243 NEUTROS ABS X10E9/L 8.0* 8.3* 16.3* LYMPHS ABS AUTO X10E9/L 1.3 1.8 0.9* MONOS ABS AUTO X10E9/L 0.8 0.9 0.8 EOS ABS AUTO X10E9/L 0.2 0.0 0.0 BASOS ABS AUTO X10E9/L 0.0 0.0 0.1 Results from last 7 days Lab Units 11/09/24 0307 11/08/24 1720 11/08/24 1215 11/08/24 0610 11/07/24 1130 11/07/24 0735 11/07/24 0304 11/06/24 0957 11/06/24 0200 SODIUM mmol/L 140 -- -- 141 -- -- 142 -- 140 POTASSIUM mmol/L 4.7 3.8 4.0 3.3* < > 3.8 4.1 < > 4.1 CHLORIDE mmol/L 101 -- -- 108 -- -- 103 -- 106 CO2 mmol/L 30 -- -- 28 -- -- 31 -- 22 BUN mg/dL 22 -- -- 24* -- -- 29* -- 36* CREATININE mg/dL 1.58* -- -- 1.51* -- -- 2.00* -- 2.33* CALCIUM mg/dL 8.8 -- -- 7.7* -- -- 8.4* -- 7.7* ALBUMIN g/dL 3.7 -- -- -- -- 3.4 3.8 < > 3.7 ALK PHOS U/L 143* -- -- -- -- -- 61 -- 63 ALT U/L 838* -- -- -- -- -- 1,446* -- 1,426* AST U/L 764* -- -- -- -- -- 783* -- 1,597* < > = values in this interval not displayed. Results from last 7 days Lab Units 11/06/24 1656 11/06/24 0957 11/05/24 0158 11/04/24 1654 PROCALCITONIN ng/mL -- -- 38.12* 40.05* CRP mg/dL -- 5.1* -- 1.2* TOXIGENIC C DIFF Negative -- -- -- Results from last 7 days Lab Units 11/06/24 1100 11/04/24 2308 COLOR YELLOW -- TURBIDITY CLEAR -- SPECIFIC GRAVITY 1.009 -- SPECIFIC GRAVITY KRISTA -- 1.010 NITRITE Negative -- NITRITE KRISTA -- Negative PH URINE 6.5 -- PH KRISTA -- 5.5 LEUKOCYTE ESTERASE Negative -- LEUKOCYTE ESTERASE KRISTA -- Trace* PROTEIN mg/dL 70* -- PROTEIN KRISTA mg/dL -- 100* KETONES (URINE) mg/dL Negative -- KETONES KRISTA mg/dL -- Negative UROBILINOGEN eu/dL <1.1 -- UROBILINOGEN KRISTA eu/dL -- 0.2 BLDHGB Large* -- POC HGB -- Large* RBC UA /hpf <1 -- WBC UA /hpf 1 -- No results found. Imaging Studies: I have personally reviewed this study. Cultures: Microbiology Results Procedure Component Value Units Date/Time Resp Pathogens Panel/SARS CoV-2 [[id number]] Collected: 11/05/24155 Specimen: Nasopharynx Updated: 11/05/24 031 Specimen Source NASO PHARYNX Adenovirus Detection by PCR Not Detected Coronavirus 229e Not Detected Coronavirus hku1 Not Detected Coronavirus nl63 Not Detected Coronavirus oc43 Not Detected Human metapneumovirus Not Detected Rhinovirus/enterovirus Not Detected Influenza A Not Detected Influenza B Not Detected Parainfluenza 1 Not Detected Parainfluenza 2 Not Detected Parainfluenza 3 Not Detected Parainfluenza 4 Not Detected Respiratory syncytial virus Not Detected Bordetella parapertussis Not Detected Bordetella pertussis Not Detected Chlamydophila pneumophilia Not Detected Mycoplasma pneumoniae Not Detected SARS COV 2 Not Detected Mrsa Pcr nasal swab [[id number]] Collected: 11/05/24 0156 Specimen: Nasal Updated: 11/05/24 0340 Mrsa PCR Negative Urine culture [[id number]] Collected: 11/04/24 225 Specimen: Urine, Clean Catch Midstream Updated: 11/06/24 1422 Culture 10,000 to 50,000 ORGANISMS/mL NORMAL URO GENITAL RAYMOND SARS/FLU A+B/RSV by NAAT/Molecular (M4RT Collection Tube) [[id number]] Collected: 11/04/24 191 Specimen: Nasopharynx Updated: 11/04/242005 FLU A PCR Negative FLU B PCR Negative RSV by PCR Negative SARS CoV 2 BY PCR Not Detected Blood culture [[id number]] Collected: 11/04/24 181 Specimen: Blood Updated: 11/08/242235 Culture NO GROWTH 4 DAYS Blood culture [[id number]] Collected: 11/04/24 171 Specimen: Blood Updated: 11/08/242237 Culture NO GROWTH 4 DAYS Medications: amLODIPine, 5 mg, oral, Daily heparin (porcine), 5,000 Units, subcutaneous, Q12H VANESSA lacosamide, 100 mg, oral, BID levETIRAcetam, 500 mg, oral, BID nicotine, 1 patch, transdermal, Daily Thank you for allowing us to participate in the care of this patient. Please call with questions. VIJAYA Griffith From 7AM-7PM: Our team prefers to use [employer] for communication. From 7PM-7AM: Please call for our answering service. VIJAYA Lazar 11/08/24 1131 VIJAYA Lazar 11/09/24 1651 Principal Problem: Seizure ([facility] Chief Complaint: Diarrhea, had 2-3 bowel movements since yesterday ASSESSMENT AND PLAN: Patient is a 24-year-old female with known Hx/o Seizure disorder, Depression/Anxiety, Eczema, Gastritis, former smoker initially admitted to ICU presented on 11/04/2024 with recurrent seizures, rash. Once stabilized was transferred to floor under [facility] as primary on 11/07/2024. 1. Breakthrough seizure likely secondary to medication nonadherence. Appreciate Neurology input. Continue Keppra/Vimpat. 2. Altered mental status likely multifactorial secondary to seizures/postictal/acute metabolic encephalopathy. Resolved. 3. Acute nontraumatic rhabdomyolysis possibly related to seizures rule out serotonin syndrome(fever, diarrhea, seizure). Continue IV fluids. Psych clearance to reinitiate medication with Paxil at lower dose closer to discharge Check CK, myoglobin daily. 4. Acute renal failure likely secondary to rhabdomyolysis. Improving. Appreciate Nephrology follow-up. Continue IV fluids, avoid nephrotoxins medications. 5. Sepsis with encephalopathy presented with fever, leukocytosis, altered mental status, seizure with unsuccessful LP outpatient possible source intra-abdominal with CT showing colitis/enteritis in patient with diarrhea. Blood cultures have been negative. Appreciate ID follow-up, monitoring off antibiotics. Enterovirus PCR pending. GI panel, C diff negative. 6. New onset extremity and truncal rash prior to seizure episode and admission likely secondary to eczema. Resolving. Appreciate Rheumatology input. 7. Transaminitis likely secondary to rhabdomyolysis. Improving. Monitor. 8. Acute normocytic anemia rule out blood loss/dilutional effect with IV hydration. Normal vitamin B12, folate, ferritin, iron profile, total bilirubin. Monitor for any active bleeding. Transfuse if hemoglobin less than 7. Hold heparin if patient having any active bleeding. 9. Hypokalemia. Replace. 10. Hx/o Depression/Anxiety. Stable. Patient on Abilify/paroxetine/Effexor with possibility of serotonin syndrome, hold psych medications for now till decreasing CK trend and we will re-initiated on lower dose of Paxil. 11. Smoking cessation. Nicotine patch. 12. DVT prophylaxis. Heparin. Rest of medical issues are stable. CODE STATUS: FULL CODE. DISCHARGE DISPOSITION: Pending improvement in rhabdomyolysis, renal failure, LFTs. Dietary Orders (From admission, onward) Start Ordered 11/07/24 1028 Adult diet Regular Texture Diet effective now Question: Diet Type: Answer: Regular Texture 11/07/24 1028 SUBJECTIVE: Patient awake oriented x3 does not be in distress, mentions had 2-3 loose bowel movements since yesterday but no melena or hematochezia, denies chest pain, shortness of breath, abdominal pain, no fever or chills overnight, no nausea and vomiting, tolerating diet. Rash related to her eczema seems to have improved, denies hemoptysis, hematemesis, gross hematuria. Disappointed with having to stay in the hospital till further recovery of renal function and CK levels. Complains of having to frequently urinate. OBJECTIVE Vitals: 11/09/24 0500 BP: Pulse: 75 Resp: 21 Temp: SpO2: 97% PHYSICAL EXAM: GENERAL: patient awake oriented x 3, does not appear in distress. HEENT: pale, no icterus, NECK: supple, CVS: s1,s2 heard no murmurs, rubs or gallops RESPIRATORY: B/l airway entry with no crackles or wheezing ABDOMINAL: soft non tender, non distended with bowel sounds heard, EXTREMITIES: no pedal edema with peripheral pulses palpable NEURO: strength 5/5 all 4 extremities, SKIN: Rash noted on upper extremity, trunk seems to have improved. Recent Results (from the past 24 hours) Iron and TIBC Collection Time: 11/08/24 12:15 PM Result Value Ref Range Iron 70 50 - 170 ug/dL Tibc-calc only do not order 358 250 - 425 ug/dL Iron Saturation 20 15 - 50 % SATURATION Ferritin Collection Time: 11/08/24 12:15 PM Result Value Ref Range Ferritin 214 11 - 307 ng/mL Vitamin B12 Collection Time: 11/08/24 12:15 PM Result Value Ref Range Vitamin B-12 525 180 - 914 pg/mL Folate Collection Time: 11/08/24 12:15 PM Result Value Ref Range Folate 9.4 >5.8 ng/mL Potassium Collection Time: 11/08/24 12:15 PM Result Value Ref Range Potassium, Bld 4.0 3.5 - 5.0 mmol/L Ionized magnesium Collection Time: 11/08/24 3:20 PM Result Value Ref Range Magnesium, ionized 0.63 0.45 - 0.74 mmol/L Bedside Glucose *Place/Obtain serum glucose if >500(>600 MRH) per glucometer. Collection Time: 11/08/24 3:24 PM Result Value Ref Range Bedside glucose 153 (H) 65 - 99 mg/dL Potassium Collection Time: 11/08/24 5:20 PM Result Value Ref Range Potassium, Bld 3.8 3.5 - 5.0 mmol/L Phosphorus Collection Time: 11/09/24 3:07 AM Result Value Ref Range Phosphorus 4.1 2.4 - 4.9 mg/dL Magnesium Collection Time: 11/09/24 3:07 AM Result Value Ref Range Magnesium 1.7 (L) 1.8 - 2.6 mg/dL CBC auto differential Collection Time: 11/09/24 3:07 AM Result Value Ref Range White Blood Cells 10.4 4.0 - 11.0 X10E9/L RBC count 3.83 3.80 - 5.20 X10E12/L Hemoglobin 12.0 11.7 - 15.5 g/dL Hematocrit 34.5 (L) 35 - 47 % MCV 90 80 - 100 fL MCH 31.3 27 - 34 pg MCHC 34.8 32 - 36 g/dL RDW 13.4 11.5 - 15.0 % Platelets 210 150 - 450 X10E9/L MPV 8.2 7 - 12 fL % neutrophils 77.4 % % lymphocytes 12.7 % % monocytes 7.7 % % eosinophils 2.0 % % Basophils 0.2 % Neutrophils Absolute (A) 8.0 (H) 1.5 - 6.6 X10E9/L Lymphocytes Absolute 1.3 1.0 - 3.5 X10E9/L Monocytes Absolute 0.8 0 - 0.9 X10E9/L Eosinophils Absolute 0.2 0.0 - 0.4 X10E9/L Basophils Absolute 0.0 0.0 - 0.2 X10E9/L CK Total Collection Time: 11/09/24 3:07 AM Result Value Ref Range Total CK 39,237 (H) 24 - 170 U/L Myoglobin, serum Collection Time: 11/09/24 3:07 AM Result Value Ref Range Myoglobin 2,894.9 (H) 14.3 - 65.8 ng/mL Ionized calcium Collection Time: 11/09/24 3:07 AM Result Value Ref Range Calcium, ionized 4.5 4.5 - 5.3 mg/dL Comprehensive metabolic panel Collection Time: 11/09/24 3:07 AM Result Value Ref Range Sodium 140 134 - 146 mmol/L Potassium, Bld 4.7 3.5 - 5.0 mmol/L Chloride 101 98 - 109 mmol/L CO2 30 22 - 32 mmol/L Anion gap 9 5 - 15 mmol/L BUN 22 5 - 23 mg/dL Creatinine 1.58 (H) 0.40 - 1.00 mg/dL Glucose 90 65 - 99 mg/dL Calcium 8.8 8.5 - 10.5 mg/dL Total Protein 6.0 6.0 - 8.0 g/dL Albumin 3.7 3.2 - 5.3 g/dL Alkaline Phosphatase 143 (H) 39 - 130 U/L AST 764 (H) 0 - 41 U/L ALT 838 (H) 0 - 31 U/L Total bilirubin 1.6 (H) 0.3 - 1.2 mg/dL eGFR (CKD-EPI)non-race dependent 47 (L) >59 ml/min/1.73sq.m Ionized magnesium Collection Time: 11/09/24 3:07 AM Result Value Ref Range Magnesium, ionized 0.45 0.45 - 0.74 mmol/L Bilirubin, direct Collection Time: 11/09/24 3:07 AM Result Value Ref Range Bilirubin, direct 0.9 (H) 0.0 - 0.4 mg/dL MICROBIOLOGY: Microbiology Results Procedure Component Value Units Date/Time Resp Pathogens Panel/SARS CoV-2 [[id number]] Collected: 11/05/24 0156 Specimen: Nasopharynx Updated: 11/05/24 0315 Specimen Source NASO PHARYNX Adenovirus Detection by PCR Not Detected Coronavirus 229e Not Detected Coronavirus hku1 Not Detected Coronavirus nl63 Not Detected Coronavirus oc43 Not Detected Human metapneumovirus Not Detected Rhinovirus/enterovirus Not Detected Influenza A Not Detected Influenza B Not Detected Parainfluenza 1 Not Detected Parainfluenza 2 Not Detected Parainfluenza 3 Not Detected Parainfluenza 4 Not Detected Respiratory syncytial virus Not Detected Bordetella parapertussis Not Detected Bordetella pertussis Not Detected Chlamydophila pneumophilia Not Detected Mycoplasma pneumoniae Not Detected SARS COV 2 Not Detected Mrsa Pcr nasal swab [[id number]] Collected: 11/05/24 0156 Specimen: Nasal Updated: 11/05/24 0340 Mrsa PCR Negative Urine culture [[id number]] Collected: 11/04/24 225 Specimen: Urine, Clean Catch Midstream Updated: 11/06/24 1422 Culture 10,000 to 50,000 ORGANISMS/mL NORMAL URO GENITAL RAYMOND SARS/FLU A+B/RSV by NAAT/Molecular (M4RT Collection Tube) [[id number]] Collected: 11/04/24 1913 Specimen: Nasopharynx Updated: 11/04/24 2006 FLU A PCR Negative FLU B PCR Negative RSV by PCR Negative SARS CoV 2 BY PCR Not Detected Blood culture [[id number]] Collected: 11/04/24 1812 Specimen: Blood Updated: 11/08/24 223 Culture NO GROWTH 4 DAYS Blood culture [[id number]] Collected: 11/04/24 1715 Specimen: Blood Updated: 11/08/24 2238 Culture NO GROWTH 4 DAYS EEG: This EEG in the awake and asleep states is abnormal due to the presence of generalized background slowing suggestive of bi-hemispheric cerebral dysfunction that can be seen in post ictal states, metabolic, hypoxic or toxic encephalopathies, sedative medication use or primary neurological disorde CT BRAIN WITHOUT CONTRAST: No acute or subacute intracranial abnormalities. CT ABDOMEN PELVIS WITHOUT CONTRAST: Substantial liquid stool throughout much of the large bowel, suspect underlying colitis/enteritis. Similarly, distal esophageal wall thickening, correlate for clinical signs of esophagitis. No high-grade transition point to suggest obstruction. CHEST X-RAY: No acute pulmonary process. Hypoventilation with bronchovascular crowding. SCHEDULED MEDICATIONS: amLODIPine, 5 mg, oral, Daily heparin (porcine), 5,000 Units, subcutaneous, Q12H VANESSA lacosamide, 100 mg, oral, BID levETIRAcetam, 500 mg, oral, BID nicotine, 1 patch, transdermal, Daily P.R.N. MEDICATIONS: acetaminophen calcium gluconate calcium gluconate calcium gluconate OR [DISCONTINUED] calcium gluconate OR [DISCONTINUED] calcium gluconate calcium gluconate dextrose dextrose 50 % in water (D50W) glucagon (human recombinant) magnesium sulfate magnesium sulfate ondansetron potassium chloride OR potassium chloride OR potassium chloride IV (Adult) This note was completed using a voice opener system. Every effort was made to ensure accuracy. However, inadvertent computerized opener errors may be present. Images from the original note were not included. NEPHROLOGY DAILY PROGRESS NOTE Subjective: She is disappointed that she is not being discharged. Denies muscle pain or soreness. Vital signs in last 24 hours: Vitals: 11/09/24 0200 11/09/24 0300 11/09/24 0400 11/09/24 0500 BP: 136/87 Pulse: 79 77 71 75 Resp: (!) 27 18 16 21 Temp: 36.9 C (98.4 F) TempSrc: Oral SpO2: 96% 96% 97% Weight: 93 kg (205 lb 0.4 oz) Height: Intake/Output: Intake/Output Summary (Last 24 hours) at 11/09/2024 0918 Last data filed at 11/08/2024 1600 Gross per 24 hour Intake 2485.2 ml Output 1000 ml Net 1485.2 ml Physical Exam: General appearance: alert in no acute distress. HEENT: no JVD, no carotid bruits, no lymphadenopathy. Heart:: normal S1-S2, No gallops. Lungs: clear to auscultation B/L Abdomen: no tenderness, no guarding, no hepatosplenomegaly could be appreciated. Extremities: No LE edema Inpatient Meds: heparin (porcine), 5,000 Units, subcutaneous, Q12H VANESSA lacosamide, 100 mg, oral, BID levETIRAcetam, 500 mg, oral, BID nicotine, 1 patch, transdermal, Daily lactated ringer's, 150 mL/hr, Last Rate: 150 mL/hr (11/09/24 0911) Nutrition: Dietary Orders (From admission, onward) Start Ordered 11/07/24 1028 Adult diet Regular Texture Diet effective now Question: Diet Type: Answer: Regular Texture 11/07/24 1028 Labs: Results from last 7 days Lab Units 11/09/24 0307 11/08/24 1720 11/08/24 1215 11/08/24 0610 11/07/24 0735 11/07/24 0304 SODIUM mmol/L 140 -- -- 141 -- 142 POTASSIUM mmol/L 4.7 3.8 4.0 3.3* < > 4.1 CHLORIDE mmol/L 101 -- -- 108 -- 103 CO2 mmol/L 30 -- -- 28 -- 31 BUN mg/dL 22 -- -- 24* -- 29* CREATININE mg/dL 1.58* -- -- 1.51* -- 2.00* CALCIUM mg/dL 8.8 -- -- 7.7* -- 8.4* PHOSPHORUS mg/dL 4.1 -- -- 2.7 -- 3.1 MAGNESIUM mg/dL 1.7* -- -- 1.9 -- 1.9 < > = values in this interval not displayed. 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 On ceftriaxone and Flagyl. Anemia Transaminitis New onset lower extremity and truncal rash for flare of eczema IMPRESSION 1. Acute kidney injury in the setting of rhabdomyolysis: Creatinine has declined from 2.43- 1.58 mg/dL. Urinalysis showed a specific gravity of 1.009 with 1 white blood cell and 1 red blood cell per high-power field the fractional excretion of sodium was less than 1% the urine protein creatinine ratio was 2.45 gram/gram. Nonoliguric with 1.6 L of urine output. 2. Rhabdomyolysis in the setting of seizure : CK total has increased to 39,237. Myoglobin 2849. Rhabdomyolysis can be seen in the serotonin syndrome. Elevations in CK can be prolonged if the initial muscle injury was severe. 3. History of seizure disorder after having been forced to stop lamotrigine due to rash. I note and appreciate input of the neurology service. Now on Vimpat 100 mg p.o. b.i.d. and Keppra 500 mg p.o. b.i.d.. 4. Anemia: In the setting of acute kidney injury 5. Enteritis/colitis: Antibiotics have been discontinued. 6. Hypertension: Blood pressure 136/87 138/100 today. 7. Concern for serotonin syndrome: I appreciate Dr. Vasquez's input. The patient's constellation of symptoms could be part of a serotonin syndrome. However, she has clinically significantly improved. Case discussed with Dr. Dennis agree with recommendation to hold psychotropic medications especially the serotonin reuptake inhibitor at this time. RECOMMENDATION 1. Continue IV fluid administration 2.Replace magnesium deficit. 3. For hypertension will add amlodipine 5 mg daily MARJORIE CURIEL MD,PhD. [facility] ANY QUESTIONS FEEL FREE TO CALL: 1. OFFICE [phone] 2. ANSWERING SERVICE: [phone] NEPHROLOGY DAILY PROGRESS NOTE Subjective: She is awake alert and oriented. Has seen a significant improvement rash. Vital signs in last 24 hours: Vitals: 11/08/24 0600 11/08/24 0800 11/08/24 0900 11/08/24 1000 BP: (!) 130/115 (!) 146/106 132/90 Pulse: 85 67 68 79 Resp: 20 23 Temp: 36.9 C (98.5 F) TempSrc: Oral SpO2: 93% 98% 100% Weight: Height: Intake/Output: Intake/Output Summary (Last 24 hours) at 11/08/2024 1050 Last data filed at 11/08/2024 0303 Gross per 24 hour Intake 449.01 ml Output 725 ml Net -275.99 ml Physical Exam: General appearance: alert in no acute distress. HEENT: no JVD, no carotid bruits, no lymphadenopathy. Heart:: normal S1-S2, No gallops. Lungs: clear to auscultation B/L Abdomen: no tenderness, no guarding, no hepatosplenomegaly could be appreciated. Extremities: No LE edema Inpatient Meds: ARIPiprazole, 2 mg, oral, Daily heparin (porcine), 5,000 Units, subcutaneous, Q12H VANESSA lacosamide, 100 mg, oral, BID levETIRAcetam, 500 mg, oral, BID nicotine, 1 patch, transdermal, Daily PARoxetine, 50 mg, oral, Daily venlafaxine XR, 75 mg, oral, Daily with breakfast lactated ringer's, 150 mL/hr, Last Rate: 150 mL/hr (11/07/24 2326) Nutrition: Dietary Orders (From admission, onward) Start Ordered 11/07/24 1028 Adult diet Regular Texture Diet effective now Question: Diet Type: Answer: Regular Texture 11/07/24 1028 Labs: Results from last 7 days Lab Units 11/08/24 0610 11/08/24 0020 11/07/24 1745 11/07/24 0735 11/07/24 0304 11/06/24 2150 11/06/24 0200 SODIUM mmol/L 141 -- -- -- 142 -- 140 POTASSIUM mmol/L 3.3* 3.8 3.1* < > 4.1 < > 4.1 CHLORIDE mmol/L 108 -- -- -- 103 -- 106 CO2 mmol/L 28 -- -- -- 31 -- 22 BUN mg/dL 24* -- -- -- 29* -- 36* CREATININE mg/dL 1.51* -- -- -- 2.00* -- 2.33* CALCIUM mg/dL 7.7* -- -- -- 8.4* -- 7.7* PHOSPHORUS mg/dL 2.7 -- -- -- 3.1 -- 4.6 MAGNESIUM mg/dL 1.9 -- -- -- 1.9 -- 2.1 < > = values in this interval not displayed. 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 On ceftriaxone and Flagyl. Anemia Transaminitis New onset lower extremity and truncal rash for flare of eczema IMPRESSION 1. Acute kidney injury in the setting of rhabdomyolysis: Creatinine has declined from 2.43- 1.51 mg/dL. Urinalysis showed a specific gravity of 1.009 with 1 white blood cell and 1 red blood cell per high-power field the fractional excretion of sodium was less than 1% the urine protein creatinine ratio was 2.45 gram/gram. Nonoliguric with 1.6 L of urine output. 2. Rhabdomyolysis in the setting of seizure : CK total today is 34,826. 3. History of seizure disorder after having been forced to stop lamotrigine due to rash. I note and appreciate input of the neurology service. Now on Vimpat 100 mg p.o. b.i.d. and Keppra 500 mg p.o. b.i.d.. 4. Anemia: In the setting of acute kidney injury 5. Enteritis/colitis: Antibiotics have been discontinued. 6. Hypertension: Note blood pressures of 125/101 146/106 130/115. Most recent blood pressure 132/90. RECOMMENDATION 1. Continue IV fluids and monitor serial renal chemistries 2. Replace potassium deficit 3. Continue IV lactated Ringer's at 150 mL/hr MARJORIE CURIEL MD,PhD. [facility] ANY QUESTIONS FEEL FREE TO CALL: 1. OFFICE [phone] 2. ANSWERING SERVICE: [phone] Images from the original note were not included. Division of Infectious Diseases - Progress Note Infectious Diseases Patient name: Yolanda Ma Back Patient Today's Date and Time: 11/08/2024, 8:30 AM Admission Date: 11/05/2024 Primary Care Physician: OTTONIEL ARIAS MD Impression and Recommendations: Sepsis with encephalopathy Presented with fever, leukocytosis, altered mental status and seizure Unsuccessful LP outpatient Suspected source is intra abdominal. CT showed possible colitis/enteritis Clinically improving. No fever. WBC normalized today. No diarrhea. Awaiting enterovirus pcr Monitoring off antibiotics Rash Resolved Possibly related to viral illness such as enterovirus or drug rash from [facility] Seizure Neurology following Rhabdomyolysis RAKESH Nephrology following Subjective Interval History: Patient seen and examined at bedside. Awake and alert. Family at bedside. Reports rash has resolved. No fever, chills or sweats. No shortness of breath or cough. No nausea, vomiting or diarrhea Objective Physical Examination : BP (!) 130/115 Pulse 85 Temp 36.9 C (98.4 F) (Oral) Resp 20 Ht 162.6 cm (5' 4.02 ) Wt 93.4 kg (205 lb 14.6 oz) SpO2 94% BMI 35.33 kg/m Temperature Range: Temp: 36.9 C (98.4 F) Temp Av.9 C (98.5 F) Min: 36.8 C (98.3 F) Max: 37.1 C (98.8 F) General Appearance: Awake, alert, and in no apparent distress Eyes: Sclera anicteric; conjunctivae pink ENT: Oropharynx clear, without erythema, exudate, or thrush. Neck: Supple, without lymphadenopathy. Pulmonary/Chest: Clear to auscultation, without wheezes, rales, or rhonchi Cardiovascular: Regular rate and rhythm without murmurs, rubs, or gallops. Abdomen: Soft, nontender, nondistended. Extremities: No cyanosis, clubbing, edema, or effusions. Neurologic: Bulk and tone are normal. No atrophy is noted. Skin: No rash or lesions. Laboratory data: I have independently reviewed the following labs: Results from last 7 days Lab Units 11/08/24 0610 11/07/24 0304 11/06/24 0200 WBC X10E9/L 11.0 18.1* 21.6* HEMOGLOBIN g/dL 9.5* 10.5* 10.4* HEMATOCRIT % 27.9* 30.8* 30.3* MCV fL 90 90 89 PLATELETS X10E9/L 203 243 242 NEUTROS ABS X10E9/L 8.3* 16.3* 19.9* LYMPHS ABS AUTO X10E9/L 1.8 0.9* 0.7* MONOS ABS AUTO X10E9/L 0.9 0.8 1.0* EOS ABS AUTO X10E9/L 0.0 0.0 0.0 BASOS ABS AUTO X10E9/L 0.0 0.1 0.0 Results from last 7 days Lab Units 11/08/24 0610 11/08/24 0020 11/07/24 1745 11/07/24 1130 11/07/24 0735 11/07/24 0304 11/06/24 2150 11/06/24 0957 11/06/24 0200 11/05/24 1918 11/05/24 0158 SODIUM mmol/L 141 -- -- -- -- 142 -- -- 140 < > 136 POTASSIUM mmol/L 3.3* 3.8 3.1* < > 3.8 4.1 < > -- 4.1 < > 4.0 CHLORIDE mmol/L 108 -- -- -- -- 103 -- -- 106 < > 108 CO2 mmol/L 28 -- -- -- -- 31 -- -- 22 < > 16* BUN mg/dL 24* -- -- -- -- 29* -- -- 36* < > 37* CREATININE mg/dL 1.51* -- -- -- -- 2.00* -- -- 2.33* < > 2.26* CALCIUM mg/dL 7.7* -- -- -- -- 8.4* -- -- 7.7* < > 7.4* ALBUMIN g/dL -- -- -- -- 3.4 3.8 -- REQUEST CREDITED 3.7 -- 4.5 ALK PHOS U/L -- -- -- -- -- 61 -- -- 63 -- 86 ALT U/L -- -- -- -- -- 1,446* -- -- 1,426* -- 216* AST U/L -- -- -- -- -- 783* -- -- 1,597* -- 488* < > = values in this interval not displayed. Results from last 7 days Lab Units 11/06/24 1656 11/06/24 0957 11/05/24 0158 11/04/24 1654 PROCALCITONIN ng/mL -- -- 38.12* 40.05* CRP mg/dL -- 5.1* -- 1.2* TOXIGENIC C DIFF Negative -- -- -- Results from last 7 days Lab Units 11/06/24 1100 11/04/24 2308 COLOR YELLOW -- TURBIDITY CLEAR -- SPECIFIC GRAVITY 1.009 -- SPECIFIC GRAVITY KRISTA -- 1.010 NITRITE Negative -- NITRITE KRISTA -- Negative PH URINE 6.5 -- PH KRISTA -- 5.5 LEUKOCYTE ESTERASE Negative -- LEUKOCYTE ESTERASE KRISTA -- Trace* PROTEIN mg/dL 70* -- PROTEIN KRISTA mg/dL -- 100* KETONES (URINE) mg/dL Negative -- KETONES KRISTA mg/dL -- Negative UROBILINOGEN eu/dL <1.1 -- UROBILINOGEN KRISTA eu/dL -- 0.2 BLDHGB Large* -- POC HGB -- Large* RBC UA /hpf <1 -- WBC UA /hpf 1 -- No results found. Imaging Studies: I have personally reviewed this study. Cultures: Microbiology Results Procedure Component Value Units Date/Time Resp Pathogens Panel/SARS CoV-2 [[id number]] Collected: 11/05/24 0156 Specimen: Nasopharynx Updated: 11/05/24 0315 Specimen Source NASO PHARYNX Adenovirus Detection by PCR Not Detected Coronavirus 229e Not Detected Coronavirus hku1 Not Detected Coronavirus nl63 Not Detected Coronavirus oc43 Not Detected Human metapneumovirus Not Detected Rhinovirus/enterovirus Not Detected Influenza A Not Detected Influenza B Not Detected Parainfluenza 1 Not Detected Parainfluenza 2 Not Detected Parainfluenza 3 Not Detected Parainfluenza 4 Not Detected Respiratory syncytial virus Not Detected Bordetella parapertussis Not Detected Bordetella pertussis Not Detected Chlamydophila pneumophilia Not Detected Mycoplasma pneumoniae Not Detected SARS COV 2 Not Detected Mrsa Pcr nasal swab [[id number]] Collected: 11/05/24 0156 Specimen: Nasal Updated: 11/05/24 0340 Mrsa PCR Negative Urine culture [[id number]] Collected: 11/04/24 225 Specimen: Urine, Clean Catch Midstream Updated: 11/06/24 1422 Culture 10,000 to 50,000 ORGANISMS/mL NORMAL URO GENITAL RAYMOND SARS/FLU A+B/RSV by NAAT/Molecular (M4RT Collection Tube) [[id number]] Collected: 11/04/24 191 Specimen: Nasopharynx Updated: 11/04/242005 FLU A PCR Negative FLU B PCR Negative RSV by PCR Negative SARS CoV 2 BY PCR Not Detected Blood culture [[id number]] Collected: 11/04/24 181 Specimen: Blood Updated: 11/07/24 223 Culture NO GROWTH 3 DAYS Blood culture [[id number]] Collected: 11/04/24 1715 Specimen: Blood Updated: 11/07/242237 Culture NO GROWTH 3 DAYS Medications: ARIPiprazole, 2 mg, oral, Daily heparin (porcine), 5,000 Units, subcutaneous, Q12H VANESSA lacosamide, 100 mg, oral, BID levETIRAcetam, 500 mg, oral, BID nicotine, 1 patch, transdermal, Daily PARoxetine, 50 mg, oral, Daily venlafaxine XR, 75 mg, oral, Daily with breakfast Thank you for allowing us to participate in the care of this patient. Please call with questions. VIJAYA Griffith From 7AM-7PM: Our team prefers to use [employer] for communication. From 7PM-7AM: Please call for our answering service. VIJAYA Lazar 11/08/24 1131 Principal Problem: Seizure ([facility] Chief Complaint: Diarrhea, had 3-4 bowel movements since yesterday ASSESSMENT AND PLAN: Patient is a 24-year-old female with known Hx/o Seizure disorder, Depression/Anxiety, Eczema, Gastritis, former smoker initially admitted to ICU presented on 11/04/2024 with recurrent seizures, rash. Once stabilized was transferred to floor under [facility] as primary on 11/07/2024. 1. Breakthrough seizure likely secondary to medication nonadherence. Appreciate Neurology input. Continue Keppra/Vimpat. 2. Altered mental status likely multifactorial secondary to seizures/postictal/acute metabolic encephalopathy. Resolved. 3. Acute nontraumatic rhabdomyolysis possibly related to seizures rule out serotonin syndrome(fever, diarrhea, seizure). Was improving with IV hydration but again increasing CK levels over the past 24 hours. Continue IV fluids. Psych evaluation for medication interaction with concerns for possibility of serotonin syndrome. Aldolase elevation likely in settings of rhabdomyolysis/transaminitis. Check CK, myoglobin daily. 4. Acute renal failure likely secondary to rhabdomyolysis. Improving. Appreciate Nephrology follow-up. Continue IV fluids, avoid nephrotoxins medications. 5. Sepsis with encephalopathy presented with fever, leukocytosis, altered mental status, seizure with unsuccessful LP outpatient possible source intra-abdominal with CT showing colitis/enteritis in patient with diarrhea. Blood cultures have been negative. Appreciate ID follow-up, monitoring off antibiotics. Enterovirus PCR pending. GI panel, C diff negative. 6. New onset extremity and truncal rash prior to seizure episode and admission likely secondary to eczema. Resolving. Appreciate Rheumatology input. 7. Transaminitis likely secondary to rhabdomyolysis. Improving. Monitor. 8. Acute normocytic anemia rule out blood loss. Normal vitamin B12, folate, ferritin, iron profile, total bilirubin. Monitor for any active bleeding. Transfuse if hemoglobin less than 7. Hold heparin if patient having any active bleeding. 9. Hypokalemia. Replace. 10. Hx/o Depression/Anxiety. Stable. Patient on Abilify/paroxetine/Effexor with possibility of serotonin syndrome will consult psych, hold psych medications for now with increasing CK, myoglobin. 11. Smoking cessation. Nicotine patch. 12. DVT prophylaxis. Heparin will hold if any active bleeding noted. Rest of medical issues are stable. CODE STATUS: FULL CODE. DISCHARGE DISPOSITION: Pending improvement in rhabdomyolysis, renal failure, LFTs, psychiatry evaluation. Dietary Orders (From admission, onward) Start Ordered 11/07/24 1028 Adult diet Regular Texture Diet effective now Question: Diet Type: Answer: Regular Texture 11/07/24 1028 SUBJECTIVE: Patient awake oriented x3 does not be in distress, mentions had 2-3 loose bowel movements since yesterday but no melena or hematochezia, denies chest pain, shortness of breath, abdominal pain, no fever or chills overnight, no nausea and vomiting, tolerating diet. Rash related to her eczema seems to have improved, denies hemoptysis, hematemesis, gross hematuria. OBJECTIVE Vitals: 11/08/24 0600 BP: (!) 130/115 Pulse: 85 Resp: Temp: SpO2: PHYSICAL EXAM: GENERAL: patient awake oriented x 3, does not appear in distress. HEENT: pale, no icterus, NECK: supple, CVS: s1,s2 heard no murmurs, rubs or gallops RESPIRATORY: B/l airway entry with no crackles or wheezing ABDOMINAL: soft non tender, non distended with bowel sounds heard, EXTREMITIES: no pedal edema with peripheral pulses palpable NEURO: strength 5/5 all 4 extremities, SKIN: Rash noted on upper extremity, trunk seems to have mostly resolved. Recent Results (from the past 24 hours) Ionized magnesium Collection Time: 11/07/24 11:30 AM Result Value Ref Range Magnesium, ionized 0.74 0.45 - 0.74 mmol/L CK Total Collection Time: 11/07/24 11:30 AM Result Value Ref Range Total CK 28,677 (H) 24 - 170 U/L Myoglobin, serum Collection Time: 11/07/24 11:30 AM Result Value Ref Range Myoglobin 2,484.2 (H) 14.3 - 65.8 ng/mL Potassium Collection Time: 11/07/24 11:30 AM Result Value Ref Range Potassium, Bld 3.5 3.5 - 5.0 mmol/L Potassium Collection Time: 11/07/24 5:45 PM Result Value Ref Range Potassium, Bld 3.1 (L) 3.5 - 5.0 mmol/L Bedside Glucose *Place/Obtain serum glucose if >500(>600 MRH) per glucometer. Collection Time: 11/07/24 5:48 PM Result Value Ref Range Bedside glucose 90 65 - 99 mg/dL Bedside Glucose *Place/Obtain serum glucose if >500(>600 MRH) per glucometer. Collection Time: 11/07/24 8:23 PM Result Value Ref Range Bedside glucose 107 (H) 65 - 99 mg/dL Potassium Collection Time: 11/08/24 12:20 AM Result Value Ref Range Potassium, Bld 3.8 3.5 - 5.0 mmol/L CBC auto differential Collection Time: 11/08/24 6:10 AM Result Value Ref Range White Blood Cells 11.0 4.0 - 11.0 X10E9/L RBC count 3.09 (L) 3.80 - 5.20 X10E12/L Hemoglobin 9.5 (L) 11.7 - 15.5 g/dL Hematocrit 27.9 (L) 35 - 47 % MCV 90 80 - 100 fL MCH 30.9 27 - 34 pg MCHC 34.2 32 - 36 g/dL RDW 13.4 11.5 - 15.0 % Platelets 203 150 - 450 X10E9/L MPV 8.2 7 - 12 fL % neutrophils 75.7 % % lymphocytes 16.1 % % monocytes 7.9 % % eosinophils 0.1 % % Basophils 0.2 % Neutrophils Absolute (A) 8.3 (H) 1.5 - 6.6 X10E9/L Lymphocytes Absolute 1.8 1.0 - 3.5 X10E9/L Monocytes Absolute 0.9 0 - 0.9 X10E9/L Eosinophils Absolute 0.0 0.0 - 0.4 X10E9/L Basophils Absolute 0.0 0.0 - 0.2 X10E9/L Magnesium Collection Time: 11/08/24 6:10 AM Result Value Ref Range Magnesium 1.9 1.8 - 2.6 mg/dL Phosphorus Collection Time: 11/08/24 6:10 AM Result Value Ref Range Phosphorus 2.7 2.4 - 4.9 mg/dL Basic Metabolic Panel Collection Time: 11/08/24 6:10 AM Result Value Ref Range Sodium 141 134 - 146 mmol/L Potassium, Bld 3.3 (L) 3.5 - 5.0 mmol/L Chloride 108 98 - 109 mmol/L CO2 28 22 - 32 mmol/L Anion gap 5 5 - 15 mmol/L BUN 24 (H) 5 - 23 mg/dL Creatinine 1.51 (H) 0.40 - 1.00 mg/dL Glucose 77 65 - 99 mg/dL Calcium 7.7 (L) 8.5 - 10.5 mg/dL eGFR (CKD-EPI)non-race dependent 49 (L) >59 ml/min/1.73sq.m Myoglobin, serum Collection Time: 11/08/24 6:10 AM Result Value Ref Range Myoglobin 3,593.6 (H) 14.3 - 65.8 ng/mL MICROBIOLOGY: Microbiology Results Procedure Component Value Units Date/Time Resp Pathogens Panel/SARS CoV-2 [[id number]] Collected: 11/05/24155 Specimen: Nasopharynx Updated: 11/05/24 0315 Specimen Source NASO PHARYNX Adenovirus Detection by PCR Not Detected Coronavirus 229e Not Detected Coronavirus hku1 Not Detected Coronavirus nl63 Not Detected Coronavirus oc43 Not Detected Human metapneumovirus Not Detected Rhinovirus/enterovirus Not Detected Influenza A Not Detected Influenza B Not Detected Parainfluenza 1 Not Detected Parainfluenza 2 Not Detected Parainfluenza 3 Not Detected Parainfluenza 4 Not Detected Respiratory syncytial virus Not Detected Bordetella parapertussis Not Detected Bordetella pertussis Not Detected Chlamydophila pneumophilia Not Detected Mycoplasma pneumoniae Not Detected SARS COV 2 Not Detected Mrsa Pcr nasal swab [[id number]] Collected: 11/05/24 015 Specimen: Nasal Updated: 11/05/24 0340 Mrsa PCR Negative Urine culture [[id number]] Collected: 01/2256 Specimen: Urine, Clean Catch Midstream Updated: 11/06/24 1422 Culture 10,000 to 50,000 ORGANISMS/mL NORMAL URO GENITAL RAYMOND SARS/FLU A+B/RSV by NAAT/Molecular (M4RT Collection Tube) [[id number]] Collected: 11/04/24 191 Specimen: Nasopharynx Updated: 11/04/242005 FLU A PCR Negative FLU B PCR Negative RSV by PCR Negative SARS CoV 2 BY PCR Not Detected Blood culture [[id number]] Collected: 11/04/24 181 Specimen: Blood Updated: 11/07/24 223 Culture NO GROWTH 3 DAYS Blood culture [[id number]] Collected: 11/04/24 171 Specimen: Blood Updated: 11/07/242237 Culture NO GROWTH 3 DAYS EEG: This EEG in the awake and asleep states is abnormal due to the presence of generalized background slowing suggestive of bi-hemispheric cerebral dysfunction that can be seen in post ictal states, metabolic, hypoxic or toxic encephalopathies, sedative medication use or primary neurological disorde CT BRAIN WITHOUT CONTRAST: No acute or subacute intracranial abnormalities. CT ABDOMEN PELVIS WITHOUT CONTRAST: Substantial liquid stool throughout much of the large bowel, suspect underlying colitis/enteritis. Similarly, distal esophageal wall thickening, correlate for clinical signs of esophagitis. No high-grade transition point to suggest obstruction. CHEST X-RAY: No acute pulmonary process. Hypoventilation with bronchovascular crowding. SCHEDULED MEDICATIONS: ARIPiprazole, 2 mg, oral, Daily heparin (porcine), 5,000 Units, subcutaneous, Q12H VANESSA lacosamide, 100 mg, oral, BID levETIRAcetam, 500 mg, oral, BID nicotine, 1 patch, transdermal, Daily PARoxetine, 50 mg, oral, Daily venlafaxine XR, 75 mg, oral, Daily with breakfast P.R.N. MEDICATIONS: calcium gluconate calcium gluconate calcium gluconate OR [DISCONTINUED] calcium gluconate OR [DISCONTINUED] calcium gluconate calcium gluconate dextrose dextrose 50 % in water (D50W) fentaNYL glucagon (human recombinant) magnesium sulfate magnesium sulfate ondansetron potassium chloride OR potassium chloride OR potassium chloride IV (Adult) This note was completed using a voice opener system. Every effort was made to ensure accuracy. However, inadvertent computerized opener errors may be present. Images from the original note were not included. Division of Infectious Diseases - Progress Note Academic Team Please contact us via [employer] chat. After hours, call [phone] Patient name: Yolanda Ma Back Patient Today's Date and Time: 11/07/2024, 10:43 PM Admission Date: 11/05/2024 Impression : Sepsis with borderline fever and leukocytosis thought to be of bacterial origin with no clear etiology, LP was attempted and failed at the outside facility, due to improvement in mental status repeat LP was not done. The source seems to be intra-abdominal but no clear fluid collection and the patient is not having diarrhea anymore, looks like she has passed the large amount of liquid stool present in her colon in the [place] [facility] and the stool was not sent for testing. Her abdomen is fairly benign on exam. Likelihood of meningitis is fairly low at this point. She does have rhabdomyolysis with very high CK, myoglobin and ASAT/ALT and RAKESH with a creatinine of 2.3 up jeni 1.8 up from normal baseline, which can explain the high procalcitonin even in the absence of a bacterial infection These are starting to trend down Rash - either viral syndrome (enterovirus?) or drug rash, possibly related to keppra - much improved today and she is still on IV keppra. She did get steroids. Defer to neurology decision to continue with it or not. Recommendations: Consider stopping the steroids Send enterovirus pcr from blood HIV test (negative 2 years ago) Will discontinue antibiotics today, no focal process present. Will follow Remove from droplet isolation Subjective Interval History: Feels much better today, no diarrhea, no vomiting, no more fever Awake, conversant, oriented, BC negative. Sitting up in chair no acute complaint Our consultation addresses :complex disease transmission risk assessment and mitigation complex antimicrobial therapy counseling and treatment Objective Physical Examination : BP (!) 132/99 Pulse 75 Temp 37.1 C (98.8 F) (Oral) Resp 22 Ht 162.6 cm (5' 4.02 ) Wt 93.2 kg (205 lb 7.5 oz) SpO2 90% BMI 35.25 kg/m Temperature Range: Temp: 37.1 C (98.8 F) Temp Av.8 C (98.3 F) Min: 36.6 C (97.9 F) Max: 37.1 C (98.8 F) General Appearance: Awake, alert, and in no apparent distress, nontoxic Pulmonary/Chest: Clear to auscultation, without wheezes, rales, no rhonchi Cardiovascular: Regular rate and rhythm without murmurs Abdomen: soft, non-tender, obese; normal bowel sounds Extremities: No cyanosis, edema, no joint effusions. Neurologic: Alert and oriented x 3, strength and sensation grossly normal Skin: No rash no lesions. +pallor Laboratory data: I have independently reviewed the following labs: Results from last 7 days Lab Units 11/07/24 0304 11/06/24 0200 11/05/24 0158 WBC X10E9/L 18.1* 21.6* 31.5* HEMOGLOBIN g/dL 10.5* 10.4* 13.4 HEMATOCRIT % 30.8* 30.3* 40.0 MCV fL 90 89 89 PLATELETS X10E9/L 243 242 297 NEUTROS ABS X10E9/L 16.3* 19.9* -- NEUTROS ABS MAN X10E9/L -- -- 28.8* LYMPHS ABS AUTO X10E9/L 0.9* 0.7* -- MONOS ABS AUTO X10E9/L 0.8 1.0* -- EOS ABS AUTO X10E9/L 0.0 0.0 -- BASOS ABS AUTO X10E9/L 0.1 0.0 -- Results from last 7 days Lab Units 11/07/24 1745 11/07/24 1130 11/07/24 0735 11/07/24 0304 11/06/24 2150 11/06/24 0200 11/05/24 1918 11/05/24 0158 SODIUM mmol/L -- -- -- 142 -- 140 139 136 POTASSIUM mmol/L 3.1* 3.5 3.8 4.1 < > 4.1 4.1 4.0 CHLORIDE mmol/L -- -- -- 103 -- 106 105 108 CO2 mmol/L -- -- -- 31 -- 22 24 16* BUN mg/dL -- -- -- 29* -- 36* 37* 37* CREATININE mg/dL -- -- -- 2.00* -- 2.33* 2.43* 2.26* CALCIUM mg/dL -- -- -- 8.4* -- 7.7* 7.7* 7.4* ALK PHOS U/L -- -- -- 61 -- 63 -- 86 ALT U/L -- -- -- 1,446* -- 1,426* -- 216* AST U/L -- -- -- 783* -- 1,597* -- 488* < > = values in this interval not displayed. Results from last 7 days Lab Units 11/06/24 0957 11/05/24 0158 11/04/24 1654 PROCALCITONIN ng/mL -- 38.12* 40.05* CRP mg/dL 5.1* -- 1.2* Results from last 7 days Lab Units 11/06/24 1100 11/04/24 2308 COLOR YELLOW -- TURBIDITY CLEAR -- SPECIFIC GRAVITY 1.009 -- SPECIFIC GRAVITY KRISTA -- 1.010 NITRITE Negative -- PH URINE 6.5 -- LEUKOCYTE ESTERASE Negative -- LEUKOCYTE ESTERASE KRISTA -- Trace* PROTEIN mg/dL 70* -- KETONES (URINE) mg/dL Negative -- UROBILINOGEN eu/dL <1.1 -- UROBILINOGEN KRISTA eu/dL -- 0.2 BLDHGB Large* -- RBC UA /hpf <1 -- WBC UA /hpf 1 -- Results from last 7 days Lab Units 11/06/24 1656 TOXIGENIC C DIFF Negative Imaging Studies: EEG Video Monitoring Daily Result Date: 11/05/2024 Will be included in the next report 11/05-11/06 Ray Mina MD Baseline Routine EEG Result Date: 11/05/2024 Images from the original result were not included. History This is a routine EEG in a patient with concerns for generalized seizures. Procedure This is a standard digital EEG performed in the [employer] system and was reviewed with multiple reformattable montages Technical Description There is no well defined posterior dominant rhythm noted. The background is primarily composed of semirhythmical low 20-30 uv theta and delta range frequencies. Semi rhythmical theta and delta range activity is intermixed with occasional beta activity noted over the frontal and central region. There is nearly continuous attenuation of the background frequencies with appearance of vertex waves and sleep spindles. Hyperventilation is deferred. Photic stimulation fails to elicit a sustained driving response. There is no evidence of definite epileptiform activity during this study Clinical Interpretation This EEG in the awake and asleep states is abnormal due to the presence of generalized background slowing suggestive of bi-hemispheric cerebral dysfunction that can be seen in post ictal states, metabolic, hypoxic or toxic encephalopathies, sedative medication use or primary neurological disorders. Ray Mina MD Naturopathic Oncology Provider Neurology/Neurophysiology [facility] I have personally reviewed the above studies . Cultures: Microbiology Results Procedure Component Value Units Date/Time Resp Pathogens Panel/SARS CoV-2 [[id number]] Collected: 11/05/24 015 Specimen: Nasopharynx Updated: 11/05/24 0315 Specimen Source NASO PHARYNX Adenovirus Detection by PCR Not Detected Coronavirus 229e Not Detected Coronavirus hku1 Not Detected Coronavirus nl63 Not Detected Coronavirus oc43 Not Detected Human metapneumovirus Not Detected Rhinovirus/enterovirus Not Detected Influenza A Not Detected Influenza B Not Detected Parainfluenza 1 Not Detected Parainfluenza 2 Not Detected Parainfluenza 3 Not Detected Parainfluenza 4 Not Detected Respiratory syncytial virus Not Detected Bordetella parapertussis Not Detected Bordetella pertussis Not Detected Chlamydophila pneumophilia Not Detected Mycoplasma pneumoniae Not Detected SARS COV 2 Not Detected Mrsa Pcr nasal swab [[id number]] Collected: 11/05/24 0156 Specimen: Nasal Updated: 11/05/24 0340 Mrsa PCR Negative Urine culture [[id number]] Collected: 11/04/24 2257 Specimen: Urine, Clean Catch Midstream Updated: 11/06/24 1422 Culture 10,000 to 50,000 ORGANISMS/mL NORMAL URO GENITAL RAYMOND SARS/FLU A+B/RSV by NAAT/Molecular (M4RT Collection Tube) [[id number]] Collected: 11/04/24 191 Specimen: Nasopharynx Updated: 11/04/242005 FLU A PCR Negative FLU B PCR Negative RSV by PCR Negative SARS CoV 2 BY PCR Not Detected Blood culture [[id number]] Collected: 11/04/24 181 Specimen: Blood Updated: 11/07/242235 Culture NO GROWTH 3 DAYS Blood culture [[id number]] Collected: 11/04/24 1715 Specimen: Blood Updated: 11/07/242237 Culture NO GROWTH 3 DAYS Medications: ARIPiprazole, 2 mg, oral, Daily cefTRIAXone (ROCEPHIN) IV, 2,000 mg, intravenous, Q24H heparin (porcine), 5,000 Units, subcutaneous, Q12H VANESSA lacosamide, 100 mg, oral, BID levETIRAcetam, 500 mg, oral, BID metroNIDAZOLE, 500 mg, oral, Q12H VANESSA nicotine, 1 patch, transdermal, Daily PARoxetine, 50 mg, oral, Daily venlafaxine XR, 75 mg, oral, Daily with breakfast This progress note was completed using a voice opener system. Every effort was made to ensure accuracy; however, inadvertent computerized opener errors may be present. Thank you for allowing us to participate in the care of this patient. Avni Constantino DO [place] Infectious Diseases Pager: From 7AM-7PM: From 7AM-7PM: Please use [employer] for communication. From 7PM-7AM: Please call for our answering service. Images from the original note were not included. [facility] Neurology General Neurology Primary Progress Note Primary Neurology service: [phone] Chief Complaint: Interval History: Yolanda Villanueva is a 24 y.o. female patient with previous diagnosis of left temporal epilepsy, who was maintained on lamotrigine and Keppra 750 mg p.o. b.i.d., however patient stopped lamotrigine 3 days prior to this admission due to skin rash and concern for Israel Gab syndrome. Patient admitted with breakthrough seizure, found to have elevated WBCs, rhabdomyolysis, RAKESH and elevated LFTs. Patient was maintained in Keppra since admission and has been improving. Today I talked to the patient and her family, they are endorsing that the patient has been more menendez, tearful and irritable after starting Keppra, she has been tolerating lamotrigine till recently when she started having skin rash. Interval history: Patient has been improving and recovering very well, she was awake, alert, oriented x4 and was able to provide meaningful history today. Patient and her reporting that she was getting mood side effects after starting Keppra. Inflammatory markers and WBC count has been improving. No acute events reported Pertinent past Medical History/Family/Social History reviewed as per initial HPI. Pertinent Systems reviewed as per initial HPI, and negative as below except for mentioned above. Medications: None Physical Exam Vital Signs: Vitals: 11/07/24 1200 BP: 126/86 Pulse: 99 Resp: 23 Temp: SpO2: 99% General: Normotensive, in no acute distress. Cardiac Examination: Heart: RRR, no murmurs, no rubs, no gallops. Carotids: No bruit Peripheral Vascular System: Peripheral pulses intact Neurological Examination: Higher Mental Function: Orientated to time, place, person Attention span and concentration intact Recent and Remote Memory Intact Language intact Fund of knowledge appropriate Ophthalmological Examination: Clear conjunctiva, no cataracts. Cranial Nerve Examination: II: Normal tracking, no evidence of hemianopia or other visual field defect. III, IV, & : EOM intact, no ptosis, no nystagmus seen. Pupils are equal and reactive to light. V: Facial sensation is intact. VII: no facial asymmetry, facial movement intact. VIII: hearing is normal. IX-X: Palate elevates in the midline. XI: Normal trapezius strength and/or movement. XII: Tongue movement is normal, position is midline and no fasciculations are observed. Tongue strength intact. Motor: Normal muscle tone and bulk. Patient moving bilateral upper and lower limbs antigravity. No tremors, no fasciculations, no myoclonus. Deep Tendon Reflexes: Right, Left: Biceps 2, 2 Brachioradialis 2, 2 Patellae 2, 2 Plantar response was flexor bilaterally. No clonus or other pathological reflexes elicited. Sensory examination: Intact sensation to light touch and pinprick bilateral upper and lower limb Cerebellar: Finger-nose testing normal without Gait and station: Deferred Pertinent Labs: CBC with leukocytosis 18.1, HB 10.5. Myoglobin 2400, CK 2800 CMP with creatinine 2, BUN 29 Imaging: CTH unremarkable Other Testing: Continuous EEG: This EEG in the awake and asleep states is abnormal due to the presence of generalized background slowing suggestive of bi-hemispheric cerebral dysfunction that can be seen in post ictal states, metabolic, hypoxic or toxic encephalopathies, sedative medication use or primary neurological disorders. Assessment: Yolanda Villanueva is a 24 y.o. female patient with known history of left temporal epilepsy, who was maintained on Keppra and lamotrigine, however lamotrigine was recently stopped 3 days prior to admission due to skin rash. Patient admitted with breakthrough seizure with labs showing leukocytosis, elevated kidney function test, rhabdomyolysis and elevated LFT. On physical exam today, patient is back to baseline. Impression: Breakthrough seizure, likely due to being under medicated after stopping lamotrigine. Concern for mood side effects, irritability after starting Keppra Plan: Keep holding lamotrigine, no plans to restart lamotrigine at this time. Due to mood side effects, will decrease Keppra to 500 mg p.o. b.i.d.. Load the patient with a Vimpat 200 mg IV once, then start the patient on Vimpat 100 mg p.o. b.i.d.. Patient to be discharged on Keppra 500 mg b.i.d. and Vimpat 100 mg b.i.d.. Patient needs outpatient follow-up with her primary neurologist Dr. Bragg, to make final plans regarding her AED regimen, consideration should be either monotherapy with Vimpat or Briviact. No further neuro workup needed at this time, our service will sign off Brigida Rae MD PGY-4, Neurology Resident [facility] Staffed with: (Dr. Skelton) This patient is being followed by the Neurology Resident service. Contact attending directly during these hours: Thursday to 7:30-8:30 A.M. to Thursday 12-1:00 p.m. Primary Neurology service: [phone] Consult neurology service: [phone] Resident Stroke Service: [phone] If the patient belongs to the Stroke KELSEY service please contact the Stroke KELSEY directly. Cosigned by Robin Skelton MD at 11/07/2024 3:32 PM EST Associated attestation - Robin Skelton MD - 11/07/2024 3:32 PM EST Attending Attestation: I saw the patient. I participated and was physically present during the critical/fatima portions of the service. I was directly involved in the management and treatment plan of the patient. I reviewed the resident's note. Additional Notes/Findings: Patient with epilepsy p/w seizure after being forced to stop LTG due to rash. While her infectious work up has been ambivalent, I do worry that this seizure may be due to inadequate ASM dosing. Given reproductive risk of alternative agents, at this time we will add Vimpat. She does endorse mood problems on LEV 750 BID, so we will downtitrate this to 500 BID once she is covered with Vimpat. As an outpatient, she would be a good candidate for Briviact. Rest of plan per excellent resident note. Robin Skelton MD Naturopathic Oncology Provider of Neurology [facility] 11/07/24 Critical Care Interim Progress Note: Yolanda Villanueva 1:27 PM Patient has orders placed to be transferred out of the ICU. Sign-out has been called to Dr. Gutierrez with [facility]. Today is the 2nd call to [facility] for transfer. [facility] to assume care of patient on 11/08/2024 if patient remains in ICU with orders to transfer. Critical Care will sign off at time of transfer out of ICU. Thank you. VIJAYA Kearns Department of Anesthesiology and Critical Care Medicine 11/07/24 1:28 PM Please contact me via Patient-Touch VIJAYA Kearns 11/07/24 6129 CRITICAL CARE PROGRESS NOTE Name: Yolanda Villanueva Age: 24 y.o. Date: 11/07/24 Length of Stay 2 day(s) Assessment & Plan Assessment: Sepsis with multiorgan involvement/dysfunction Altered mental status, multifactorial. Toxic metabolic/post ictal/seizure. Seizure disorder with breakthrough seizing 2/2 medication non-adherence RAKESH Rhabdomyolysis, nontraumatic, etiology unclear Transaminitis Azotemia New onset extremity and truncal rash prior to seizure episode and admission. -Superimposed on background of eczema. Unclear if viral related, drug related or rheumatologic related. Rash has shown improvement since admission History of anxiety and depression Plan: Utilize supplemental oxygen as needed to maintain oxygen saturation greater than 92%. Wean as tolerated. Currently the patient is tolerating room air with an oxygen saturation of 100%. Encourage bronchopulmonary hygiene with incentive spirometry every 1 hour as tolerated. Up to chair and out of bed as tolerated. Okay to shower today. Continue home abilify, Paxil, and venlafaxine Antiepileptics continued with lacosamide and Keppra per neurology. Appreciate recommendations and management. Keppra switch to p.o. Antibiotics continued with ceftriaxone and Flagyl per Infectious disease's. Appreciate recommendations and management. Await rheumatology consult regarding possible immuno pathological process in the setting of truncal rash, rhabdomyolysis, and transaminitis with unclear etiology. Appreciate recommendations management. Regular diet ordered. Discontinue IR consult for lumbar puncture. Monitor labs daily. Electrolyte replacement per ICU protocol. Glycemic control: Continue to monitor bedside glucose as needed. GI prophylaxis: Not indicated. DVT prophylaxis: Heparin 5000 units q.12h. Diet: Regular texture. Bowel regimen: As needed. The patient is a full code. Okay to transfer out of the ICU at this time. Today is the 2nd day the patient will be in the ICU with orders to transfer. [facility] to assume care of patient tomorrow 11/08/2024 if remains in ICU with orders to transfer. Critical care will sign off upon transfer. Plan of care discussed with Dr. Yang and bedside RN. Arvind Blanc, SHIP PAINTER HELPER-EDUCATIONAL TECHNOLOGY SPECIALIST Subjective A 12 point review of systems was obtained was grossly negative. The patient is tearful and wants to go home. At the time of the exam, she denied complaints of chest pain, shortness for breath, nausea, vomiting, abdominal pain, or diarrhea. She does have a nonproductive cough. Hospital Problem: Principal Problem: Seizure (CMS-HCC) OBJECTIVE Vital Signs Temp: [36.6 C (97.9 F)-37.6 C (99.7 F)] 36.8 C (98.3 F) Pulse: [63-123] 71 Resp: [5-28] 16 BP: (98-134)/(66-101) 129/99 SpO2: [91 %-100 %] 100 % O2 Device: None (Room air) O2 Device: None (Room air) Physical Exam General: Not in acute distress, well developed, well nourished Neurological: Following commands appropriately, GCS 15, AOx3 Head: Atraumatic, normocephalic Eyes: Normal conjunctiva, EOMI, PERRL, sclera anicteric Ears: Grossly normal appearing Nose: Grossly normal Mouth: Moist mucous membranes, tongue midline Neck: Trachea midline, supple, no cervical lymphadenopathy appreciated Cardiovascular: Sinus rhythm, S1, S2, Regular rate and rhythm, no murmurs/rubs/gallops appreciated Pulmonary: CTA anteriorly, no wheezing/stridor/crackles/rhonchi Abdominal: Soft, nontender, nondistended, no rebounding/guarding Skin: Warm and dry.Eczema and rash to trunk and extremities. Extremities: Moving all grossly, no peripheral edema I/O last 3 completed shifts: In: 3546 [P.O.:1100; I.V.:2194; IV Piggyback:252] Out: 5975 [Urine:5975] Results from last 3 days Lab Units 11/07/24 0735 11/07/24 0304 11/06/24 2150 11/06/24 0200 11/05/24 1918 11/05/24 0158 11/04/24 1654 BUN mg/dL -- 29* -- 36* 37* 37* 27* CREATININE mg/dL -- 2.00* -- 2.33* 2.43* 2.26* 1.88* POTASSIUM mmol/L 3.8 4.1 4.2 4.1 4.1 4.0 2.8* CO2 mmol/L -- 31 -- 22 24 16* 19* CHLORIDE mmol/L -- 103 -- 106 105 108 99 MAGNESIUM mg/dL -- 1.9 -- 2.1 -- 2.5 2.8* AST U/L -- 783* -- 1,597* -- 488* 356* ALT U/L -- 1,446* -- 1,426* -- 216* 122* ALK PHOS U/L -- 61 -- 63 -- 86 96 Results from last 3 days Lab Units 11/05/24 0350 INR 1.2* PROTIME sec 13.6* Results from last 3 days Lab Units 11/07/24 0304 11/06/24 0200 11/05/24 0158 11/04/24 1654 WBC X10E9/L 18.1* 21.6* 31.5* 40.2* HEMOGLOBIN g/dL 10.5* 10.4* 13.4 13.2 HEMATOCRIT % 30.8* 30.3* 40.0 40.2 PLATELETS X10E9/L 243 242 297 344 MCV fL 90 89 89 90 MCH pg 30.6 30.5 29.8 29.5 MCHC g/dL 34.1 34.4 33.4 32.9 RDW % 13.4 13.3 13.7 13.6 MONO ABS MAN X10E9/L -- -- 0.9 3.6* EOS ABS AUTO X10E9/L 0.0 0.0 -- -- Microbiology Results Procedure Component Value Units Date/Time Resp Pathogens Panel/SARS CoV-2 [[id number]] Collected: 11/05/24155 Specimen: Nasopharynx Updated: 11/05/245 Specimen Source NASO PHARYNX Adenovirus Detection by PCR Not Detected Coronavirus 229e Not Detected Coronavirus hku1 Not Detected Coronavirus nl63 Not Detected Coronavirus oc43 Not Detected Human metapneumovirus Not Detected Rhinovirus/enterovirus Not Detected Influenza A Not Detected Influenza B Not Detected Parainfluenza 1 Not Detected Parainfluenza 2 Not Detected Parainfluenza 3 Not Detected Parainfluenza 4 Not Detected Respiratory syncytial virus Not Detected Bordetella parapertussis Not Detected Bordetella pertussis Not Detected Chlamydophila pneumophilia Not Detected Mycoplasma pneumoniae Not Detected SARS COV 2 Not Detected Mrsa Pcr nasal swab [[id number]] Collected: 11/05/24 015 Specimen: Nasal Updated: 11/05/24 0340 Mrsa PCR Negative Urine culture [[id number]] Collected: 11/04/242256 Specimen: Urine, Clean Catch Midstream Updated: 11/06/24 1422 Culture 10,000 to 50,000 ORGANISMS/mL NORMAL URO GENITAL RAYMOND SARS/FLU A+B/RSV by NAAT/Molecular (M4RT Collection Tube) [[id number]] Collected: 11/04/241912 Specimen: Nasopharynx Updated: 11/04/24 2006 FLU A PCR Negative FLU B PCR Negative RSV by PCR Negative SARS CoV 2 BY PCR Not Detected Blood culture [[id number]] Collected: 11/04/24 181 Specimen: Blood Updated: 11/06/242235 Culture NO GROWTH 2 DAYS Blood culture [[id number]] Collected: 11/04/241714 Specimen: Blood Updated: 11/06/242237 Culture NO GROWTH 2 DAYS Glucose Results from last 7 days Lab Units 11/07/24 0749 11/07/24 0304 11/06/24 2147 11/06/24 1709 11/06/24 1324 11/06/24 0421 11/06/24 0200 11/05/24 2106 11/05/24 1918 11/05/24 1745 11/05/24 0158 11/05/24 0119 BEDSIDE GLUCOSE mg/dL 138* -- 142* 142* 120* 150* -- 112* -- 108* -- 105* GLUCOSE mg/dL -- 137* -- -- -- -- 155* -- 105* -- 104* -- Microbiology Results Procedure Component Value Units Date/Time Resp Pathogens Panel/SARS CoV-2 [[id number]] Collected: 11/05/24155 Specimen: Nasopharynx Updated: 11/05/24 0315 Specimen Source NASO PHARYNX Adenovirus Detection by PCR Not Detected Coronavirus 229e Not Detected Coronavirus hku1 Not Detected Coronavirus nl63 Not Detected Coronavirus oc43 Not Detected Human metapneumovirus Not Detected Rhinovirus/enterovirus Not Detected Influenza A Not Detected Influenza B Not Detected Parainfluenza 1 Not Detected Parainfluenza 2 Not Detected Parainfluenza 3 Not Detected Parainfluenza 4 Not Detected Respiratory syncytial virus Not Detected Bordetella parapertussis Not Detected Bordetella pertussis Not Detected Chlamydophila pneumophilia Not Detected Mycoplasma pneumoniae Not Detected SARS COV 2 Not Detected Mrsa Pcr nasal swab [[id number]] Collected: 11/05/24155 Specimen: Nasal Updated: 11/05/24 0340 Mrsa PCR Negative Urine culture [[id number]] Collected: 11/04/242256 Specimen: Urine, Clean Catch Midstream Updated: 11/06/24 1422 Culture 10,000 to 50,000 ORGANISMS/mL NORMAL URO GENITAL RAYMOND SARS/FLU A+B/RSV by NAAT/Molecular (M4RT Collection Tube) [[id number]] Collected: 11/04/24 191 Specimen: Nasopharynx Updated: 11/04/242005 FLU A PCR Negative FLU B PCR Negative RSV by PCR Negative SARS CoV 2 BY PCR Not Detected Blood culture [[id number]] Collected: 11/04/24 181 Specimen: Blood Updated: 11/06/242235 Culture NO GROWTH 2 DAYS Blood culture [[id number]] Collected: 11/04/24 171 Specimen: Blood Updated: 11/06/242237 Culture NO GROWTH 2 DAYS Ventilator Invasive Hemodynamic [place] Lines/Drains Peripheral IV 11/05/24 Left;Upper Arm (Active) Line Status Blood return noted;Flushed;Infusing;Connections checked/tightened 11/07/24 0400 Site Assessment Clean;Dry;Intact 11/07/24 0400 Dressing Type Occlusive;Transparent 11/07/24 0400 Dressing Status Clean;Dry;Intact 11/07/24 0400 Peripheral IV 11/06/24 Anterior;Left Forearm (Active) Line Status Blood return noted;Flushed;Infusing;Connections checked/tightened 11/07/24 0400 Site Assessment Clean;Dry;Intact 11/07/24 0400 Dressing Type Occlusive;Transparent 11/07/24 0400 Dressing Status Clean;Dry;Intact 11/07/24 0400 Dressing Intervention Initial dressing 11/06/24 1800 Dressing Change Due (Non-Gauze) 11/13/24 11/06/24 1800 Urinary Catheter 11/05/24 (Active) Catheter Status Patent 11/07/24 0400 Site Assessment Skin intact;Clean 11/07/24 0400 Collection Container Standard drainage bag/container 11/07/24 0400 Securement Method Securing device (Describe) 11/07/24 0400 Tamper Evident Seal Intact Yes 11/07/24 0400 Reason for Continuing Strict I&O in critically ill patient 11/07/24 0400 Urine Color Yellow/straw 11/07/24 0400 Urine Appearance Clear 11/07/24 0400 Output (mL) 150 mL 11/07/24 1000 I/O last 3 completed shifts: In: 3546 [P.O.:1100; I.V.:2194; IV Piggyback:252] Out: 5975 [Urine:5975] I/O this shift: In: 1445 [I.V.:1312.5; IV Piggyback:132.5] Out: 925 [Urine:925] ARIPiprazole, 2 mg, oral, Daily cefTRIAXone (ROCEPHIN) IV, 2,000 mg, intravenous, Q24H heparin (porcine), 5,000 Units, subcutaneous, Q12H VANESSA lacosamide, 200 mg, intravenous, Once lacosamide, 100 mg, oral, BID levETIRAcetam, 500 mg, oral, BID metroNIDAZOLE, 500 mg, oral, Q12H VANESSA nicotine, 1 patch, transdermal, Daily PARoxetine, 50 mg, oral, Daily venlafaxine XR, 75 mg, oral, Daily with breakfast VIJAYA Kearns 11/07/24 1231 Attestation signed by 1:04 PM PULMONARY/CRITICAL CARE ATTENDING ATTESTATION I, KILO YANG MD, personally performed the face to face diagnostic evaluation on this patient. I have reviewed the KELSEY's History, Exam, and MDM and agree with the assessment and plan as written. Patient evaluated at the bedside. She is sitting up in a chair, hemodynamically stable saturating well on RA. She remains on ceftriaxone and flagyl for possible intraabdominal infection, meningitis, felt to be less likely although decadron dosing remains in place. At this time, discontinued decadron. Await rheumatology evaluation given abnormal markers and rash which has largely resolved at this time. Antiepileptics remain in place with keppra, transitioned to PO today ID follow for antibiotic choice Stable for transfer out of ICU Kiol Yang MD [facility] Pul[facility] / Critical Care NEPHROLOGY PROGRESS NOTE Assessment 1. Acute kidney injury attributed to rhabdomyolysis, renal function improving with creatinine down to 2.0 mg/dL. She is nonoliguric 2. Rhabdomyolysis in the setting of recent seizure disorder, will follow-up on CPK level and myoglobin level 3. Encephalopathy in the setting of sepsis and recent seizure episode has resolved 4. Seizure disorder on antiepileptic agents 5. Sepsis with finding of colitis/ enteritis on CT scan on Rocephin and Flagyl. Leukocytosis trending down. 6. Maculopapular rash involving trunk/extremities on background of eczema being monitored. No evidence of eosinophilia. The rash has resolved. Rheumatology suspects this may just have been a flare-up of the eczema. 7. Volume status: To be near euvolemic. She is currently nonoliguric. Will decide on maintenance IV fluids based on repeat CPK/myoglobin levels Plan 1. Check CPK/myoglobin level Nephrology addendum Persistently elevated CPK level noted, will continue isotonic IV fluids. Start LR at 1:50 a.m. mL/hour with aim to maintain a high urine output Subjective/Interval history no events Problem List Acute kidney injury attributed to rhabdomyolysis. Creatinine baseline 0.6 mg/dL. Renal workup is pending. Rhabdomyolysis in the setting of seizures Seizure disorder Sepsis with finding of possible colitis/enteritis as esophagitis on CT scan 11/04/2024 Maculopapular rash involving trunk and extremities with background of eczema Hepatic steatosis noted on CT scan October 2024 Depression GERD Physical Exam Admission Weight: Weight: 91.9 kg (202 lb 9.6 oz) I/O last 3 completed shifts: In: 3546 [P.O.:1100; I.V.:2194; IV Piggyback:252] Out: 5975 [Urine:5975] Weight change: -0.4 kg (-14.1 oz) Wt Readings from Last 3 Encounters: 11/07/24 93.2 kg (205 lb 7.5 oz) 11/04/24 81.6 kg (180 lb) 07/12/24 81.6 kg (180 lb) Vitals: Vitals: 11/07/24 0700 11/07/24 0800 11/07/24 0900 11/07/24 1000 BP: 129/90 110/79 (!) 132/96 (!) 129/99 Pulse: 66 65 76 71 Resp: 16 (!) 5 17 16 Temp: 36.8 C (98.3 F) TempSrc: Oral SpO2: 99% 97% 99% 100% Weight: Height: General: Alert, oriented x 3 and in no obvious distress Psychiatric: Has a normal mood and affect. HEENT: Head normocephalic. Eyes: Conjunctivae and EOM are normal. Pupils are equal, round and reactive to light. Cardiovascular: Normal rate, regular rhythm and normal heart sounds. No JVD. Pulmonary/Chest: Air entry bilaterally equal. No wheezes or rales. Abdominal: Soft, bowel sounds are normal and there was no tenderness rebound or guarding. Musculoskeletal: Normal range of motion. No tenderness. Neurological: No obvious deficits. Skin: Generalized eczema noted Extremities: No edema Meds: Current Meds: ARIPiprazole, 2 mg, oral, Daily cefTRIAXone (ROCEPHIN) IV, 2,000 mg, intravenous, Q24H heparin (porcine), 5,000 Units, subcutaneous, Q12H VANESSA lacosamide, 200 mg, intravenous, Once lacosamide, 100 mg, oral, BID levETIRAcetam, 500 mg, oral, BID metroNIDAZOLE, 500 mg, oral, Q12H VANESSA nicotine, 1 patch, transdermal, Daily PARoxetine, 50 mg, oral, Daily venlafaxine XR, 75 mg, oral, Daily with breakfast Continuous Infusions: Laboratory Studies Results from last 7 days Lab Units 11/07/24 0735 11/07/24 0304 11/06/24 2150 11/06/24 0200 11/05/24 1918 11/05/24 0158 SODIUM mmol/L -- 142 -- 140 139 136 POTASSIUM mmol/L 3.8 4.1 4.2 4.1 4.1 4.0 CHLORIDE mmol/L -- 103 -- 106 105 108 CO2 mmol/L -- 31 -- 22 24 16* BUN mg/dL -- 29* -- 36* 37* 37* CREATININE mg/dL -- 2.00* -- 2.33* 2.43* 2.26* CALCIUM mg/dL -- 8.4* -- 7.7* 7.7* 7.4* PHOSPHORUS mg/dL -- 3.1 -- 4.6 -- 6.4* MAGNESIUM mg/dL -- 1.9 -- 2.1 -- 2.5 Results from last 7 days Lab Units 11/07/24 0304 11/06/24 0200 11/05/24 0158 WBC X10E9/L 18.1* 21.6* 31.5* HEMOGLOBIN g/dL 10.5* 10.4* 13.4 HEMATOCRIT % 30.8* 30.3* 40.0 PLATELETS X10E9/L 243 242 297 Results from last 7 days Lab Units 11/07/24 0304 11/06/24 0200 11/05/24 0158 MAGNESIUM mg/dL 1.9 2.1 2.5 Lab Results Component Value Date CALCIUM 8.4 (L) 11/07/2024 No results found for: IRON , TIBC , FERRITIN Please contact me at [phone] (Office) or [phone] (Answering service) with any questions. Please feel free to contact me through [facility] chat during the daytime hours, if no response after 5 minutes then call the answering service. Nestor Ramsey MD [facility] This note was created with the assistance of a speech-recognition program. Although the intention is to generate a document that actually reflects the content of the visit, no guarantees can be provided that every mistake has been identified and corrected by editing. Images from the original note were not included. Division of Infectious Diseases - Progress Note Academic Team Please contact us via [employer]. After hours, call [phone] Patient name: Yolanda Villanueva Patient Today's Date and Time: 11/06/2024, 11:56 AM Admission Date: 11/05/2024 Impression : Sepsis with borderline fever and leukocytosis thought to be of bacterial origin with no clear etiology, LP was attempted and failed at the outside facility, due to improvement in mental status repeat LP was not done. The source seems to be intra-abdominal but no clear fluid collection and the patient is not having diarrhea anymore, looks like she has passed the large amount of liquid stool present in her colon in the [place] [facility] and the stool was not sent for testing. Her abdomen is fairly benign on exam. Likelihood of meningitis is fairly low at this point. She does have rhabdomyolysis with very high CK, myoglobin and ASAT/ALT and RAKESH with a creatinine of 2.3 up jeni 1.8 up from normal baseline, which can explain the high procalcitonin even in the absence of a bacterial infection Rash - either viral syndrome (enterovirus?) or drug rash, possibly related to keppra - much improved today and she is still on IV keppra. She did get steroids. Defer to neurology decision to continue with it or not. Recommendations: Consider stopping the steroids Send enterovirus pcr from blood HIV test (negative 2 years ago) Continue ceftriaxone 2g daily and flagyl .vancomycin was stopped Will follow Remove from droplet isolation Subjective Interval History: Feels much better today, no diarrhea, no vomiting, no more fever Awake, conversant, oriented, BC negative Our consultation addresses :complex disease transmission risk assessment and mitigation complex antimicrobial therapy counseling and treatment Objective Physical Examination : BP 100/74 Pulse 87 Temp 36.7 C (98.1 F) (Oral) Resp 18 Ht 162.6 cm (5' 4.02 ) Wt 93.6 kg (206 lb 5.6 oz) SpO2 98% BMI 35.40 kg/m Temperature Range: Temp: 36.7 C (98.1 F) Temp Av.8 C (98.2 F) Min: 36.6 C (97.8 F) Max: 36.9 C (98.5 F) General Appearance: Awake, alert, and in no apparent distress, nontoxic Eyes: Sclera anicteric; conjunctivae pink ENT: Oropharynx clear, without erythema, exudate, no thrush. Neck: Supple, without lymphadenopathy. Pulmonary/Chest: Clear to auscultation, without wheezes, rales, no rhonchi Cardiovascular: Regular rate and rhythm without murmurs Abdomen: soft, non-tender, obese; normal bowel sounds Extremities: No cyanosis, edema, no joint effusions. Neurologic: Alert and oriented x 3, strength and sensation grossly normal Skin: No rash no lesions. +pallor Laboratory data: I have independently reviewed the following labs: Results from last 7 days Lab Units 11/06/24 0200 11/05/24 0158 11/04/24 1654 WBC X10E9/L 21.6* 31.5* 40.2* HEMOGLOBIN g/dL 10.4* 13.4 13.2 HEMATOCRIT % 30.3* 40.0 40.2 MCV fL 89 89 90 PLATELETS X10E9/L 242 297 344 NEUTROS ABS X10E9/L 19.9* -- -- NEUTROS ABS MAN X10E9/L -- 28.8* 35.8* LYMPHS ABS AUTO X10E9/L 0.7* -- -- MONOS ABS AUTO X10E9/L 1.0* -- -- EOS ABS AUTO X10E9/L 0.0 -- -- BASOS ABS AUTO X10E9/L 0.0 -- -- Results from last 7 days Lab Units 11/06/24 0200 11/05/24 1918 11/05/24 0158 11/04/24 1654 SODIUM mmol/L 140 139 136 130* POTASSIUM mmol/L 4.1 4.1 4.0 2.8* CHLORIDE mmol/L 106 105 108 99 CO2 mmol/L 22 24 16* 19* BUN mg/dL 36* 37* 37* 27* CREATININE mg/dL 2.33* 2.43* 2.26* 1.88* CALCIUM mg/dL 7.7* 7.7* 7.4* 8.2* ALK PHOS U/L 63 -- 86 96 ALT U/L 1,426* -- 216* 122* AST U/L 1,597* -- 488* 356* Results from last 7 days Lab Units 11/06/24 0957 11/05/24 0158 11/04/24 1654 PROCALCITONIN ng/mL -- 38.12* 40.05* CRP mg/dL 5.1* -- 1.2* Results from last 7 days Lab Units 11/04/24 2308 SPECIFIC GRAVITY KRISTA 1.010 LEUKOCYTE ESTERASE KRISTA Trace* UROBILINOGEN KRISTA eu/dL 0.2 Imaging Studies: EEG Video Monitoring Daily Result Date: 11/05/2024 Will be included in the next report 11/05-11/06 Ray Mina MD Baseline Routine EEG Result Date: 11/05/2024 Images from the original result were not included. History This is a routine EEG in a patient with concerns for generalized seizures. Procedure This is a standard digital EEG performed in the [employer] system and was reviewed with multiple reformattable montages Technical Description There is no well defined posterior dominant rhythm noted. The background is primarily composed of semirhythmical low 20-30 uv theta and delta range frequencies. Semi rhythmical theta and delta range activity is intermixed with occasional beta activity noted over the frontal and central region. There is nearly continuous attenuation of the background frequencies with appearance of vertex waves and sleep spindles. Hyperventilation is deferred. Photic stimulation fails to elicit a sustained driving response. There is no evidence of definite epileptiform activity during this study Clinical Interpretation This EEG in the awake and asleep states is abnormal due to the presence of generalized background slowing suggestive of bi-hemispheric cerebral dysfunction that can be seen in post ictal states, metabolic, hypoxic or toxic encephalopathies, sedative medication use or primary neurological disorders. Ray Mina MD Naturopathic Oncology Provider Neurology/Neurophysiology [facility] X-ray chest 1 view Result Date: 11/04/2024 XR CHEST 1 VW 11/04/2024 8:13 PM INDICATION: sepsis, seizures, transient alteration of awareness, tachycardia COMPARISON: XR chest 11/04/2024 TECHNIQUE: AP supine radiographic view(s) obtained. FINDINGS: Lines/Tubes/Devices: None. Respiratory: No pleural effusion or focal consolidation. Hypoventilation with bronchovascular crowding. Cardiomediastinum: Nonenlarged silhouette. IMPRESSION: * No acute pulmonary process. Hypoventilation with bronchovascular crowding. Approved by Resident: Regis Dotson MD on 11/04/2024 8:39 PM I, Kane Burger MD have personally reviewed the image(s) and agree with and/or edited the report Finalized by Kane Burger MD on 11/04/2024 9:[address] abdomen and pelvis without contrast Result Date: 11/04/2024 CLINICAL INFORMATION: Sepsis. TECHNIQUE: CT Abdomen and Pelvis without intravenous contrast. All CT scans at this facility use dose modulation, iterative reconstruction, and/or weight based dosing when appropriate to reduce radiation dose to as low as reasonably achievable. COMPARISON: No relevant prior studies available. FINDINGS: Assessment in the absence of intravenous contrast is suboptimal, especially with respect to vasculature, metastatic disease, and infectious precesses [if clinically relevant]. Despite this constraint, best attempt is made: Dependent atelectasis. Mild distal esophageal wall thickening. Hepatic steatosis. Normal gallbladder, spleen, adrenal glands, pancreas. Liquid stool throughout visualized large bowel extending to the level of the anus. Normal appendix. No free fluid or fluid collections. Unremarkable uterus. Prominent bilateral ovaries. No free fluid. No aggressive osseous lesions. Degenerative changes lumbar spine, posterior disc osteophyte complex at L5-S1. Question large disc extrusion at L4-5. IMPRESSION: * Substantial liquid stool throughout much of the large bowel, suspect underlying colitis/enteritis. Similarly, distal esophageal wall thickening, correlate for clinical signs of esophagitis. No high-grade transition point to suggest obstruction. Finalized by Rohit Villarreal MD on 11/04/2024 8:[address] brain without contrast Result Date: 11/04/2024 EXAM:CT BRAIN WO CONT INDICATION: Seizure disorder, clinical change COMPARISON: 12/27/2023 TECHNIQUE: Standard noncontrast axial CT sections through the head. All CT scans at this facility use dose modulation, iterative reconstruction, and/or weight based dosing when appropriate to reduce radiation dose to as low as reasonably achievable. FINDINGS: Brain Parenchyma: No acute hemorrhage, cerebral edema, or acute cortical infarction. No mass effect, or midline shift. Ventricles and Sulci: Normal for age. Extra-Axial Spaces: No extra-axial fluid collection. Orbits, paranasal sinuses, midface structures, mastoid air cells: Mild polypoid mucosal thickening of the maxillary sinuses. Cranium and extracranial soft tissues: Normal IMPRESSION: No acute or subacute intracranial abnormalities. Finalized by Subhash Colon on 11/04/2024 6:54 PM I have personally reviewed the above studies . Cultures: Microbiology Results Procedure Component Value Units Date/Time Resp Pathogens Panel/SARS CoV-2 [[id number]] Collected: 11/05/24 0156 Specimen: Nasopharynx Updated: 11/05/24 0315 Specimen Source NASO PHARYNX Adenovirus Detection by PCR Not Detected Coronavirus 229e Not Detected Coronavirus hku1 Not Detected Coronavirus nl63 Not Detected Coronavirus oc43 Not Detected Human metapneumovirus Not Detected Rhinovirus/enterovirus Not Detected Influenza A Not Detected Influenza B Not Detected Parainfluenza 1 Not Detected Parainfluenza 2 Not Detected Parainfluenza 3 Not Detected Parainfluenza 4 Not Detected Respiratory syncytial virus Not Detected Bordetella parapertussis Not Detected Bordetella pertussis Not Detected Chlamydophila pneumophilia Not Detected Mycoplasma pneumoniae Not Detected SARS COV 2 Not Detected Mrsa Pcr nasal swab [[id number]] Collected: 11/05/24 0156 Specimen: Nasal Updated: 11/05/24 0340 Mrsa PCR Negative Urine culture [[id number]] Collected: 11/04/24 225 Specimen: Urine, Clean Catch Midstream Updated: 11/06/24 0816 Culture <10,000 ORGANISMS/ML NORMAL URO GENITAL RAYMOND SARS/FLU A+B/RSV by NAAT/Molecular (M4RT Collection Tube) [[id number]] Collected: 11/04/24 191 Specimen: Nasopharynx Updated: 11/04/242005 FLU A PCR Negative FLU B PCR Negative RSV by PCR Negative SARS CoV 2 BY PCR Not Detected Blood culture [[id number]] Collected: 11/04/24 181 Specimen: Blood Updated: 11/05/24 223 Culture NO GROWTH 1 DAY Blood culture [[id number]] Collected: 11/04/24 1715 Specimen: Blood Updated: 11/05/242237 Culture NO GROWTH 1 DAY Medications: ARIPiprazole, 2 mg, oral, Daily cefTRIAXone (ROCEPHIN) IV, 2,000 mg, intravenous, Q24H dexAMETHasone, 10 mg, intravenous, Q6H famotidine, 20 mg, intravenous, Q24H VANESSA heparin (porcine), 5,000 Units, subcutaneous, Q12H VANESSA levETIRAcetam, 1,000 mg, intravenous, Q12H metroNIDAZOLE, 500 mg, oral, Q12H VANESSA nicotine, 1 patch, transdermal, Daily PARoxetine, 50 mg, oral, Daily venlafaxine XR, 75 mg, oral, Daily with breakfast This progress note was completed using a voice opener system. Every effort was made to ensure accuracy; however, inadvertent computerized opener errors may be present. Thank you for allowing us to participate in the care of this patient. - DEANGELO MERRILL MD 11/06/24 11:56 AM [facility] Infectious Diseases Please contact us via [employer] chat [facility] Progress Note Patient - Yolanda Summer Back Age - 24 [facility] [address] [id number] ASSESSMENT Severe sepsis with multiorgan dysfunction noted. Source not entirely clear at this time. Note concern for potential EARTH MOVER infection/meningitis. Altered mental status, possibly toxic/metabolic in etiology vs seizure related / post ictal. Lumbar puncture attempted unsuccessfully at the outside hospital. Seizure disorder with breakthrough seizures and recent medication noncompliance. Acute kidney injury likely related to rhabdomyolysis Rhabdomyolysis, nontraumatic and persistent. Etiology unclear Lactic acidosis, resolving Hyperchloremic metabolic acidosis Hypokalemia Transaminitis History of anxiety/depression Former smoker New onset extremity and truncal rash prior to episode. Superimposed on background of eczema Unclear if viral related, drug related or rheumatologic related. PLAN Remains on low dose precedex due to intermittent agitation Appreciate enterprise resource planning consultant care and recs. GI studies pending. Note frequent stools at outside ER but none since arrival to ICU 6.6 L of urine output last 24 hr Note improvement of CPK transiently and now back up. Will send for rheumatologic work up and request their input. Cannot exclude process such as Dermatomyositis given rash and CPK but do note that rash does not seem typical of this process. ? CPK elevation from [facility]- case report data On Decadron for possible meningitis Continue aggressive fluids. Will send urine studies. Making great urine but increasing CK of unclear etiology and worsening renal function. May need HD? Will get nephrology involved. SUBJECTIVE Patient seen and examined. She denies any muscle pain. No previous Rheumatologic conditions. No new fever or chills. No new trauma or fall. No history of joint pain, pleurisy VITALS BP 124/76 Pulse 82 Temp 36.6 C (97.8 F) (Oral) Resp 18 Ht 162.6 cm (5' 4.02 ) Wt 93.6 kg (206 lb 5.6 oz) SpO2 96% BMI 35.40 kg/m Exam General: Alert, oriented, no acute distress, nontoxic, well nourished HEENT: Moist mucosal membranes, no oral lesions or oral thrush, trachea midline Chest: Clear to auscultation bilaterally without any crackles, wheezes, rhonchi. Normal AP diameter. CV: Regular rate regular rhythm Abdomen: Soft, nontender, no guard Extremities: No edema, erythema, distal cyanosis, clubbing Integumentary: Warm and dry. Eczema and rash to trunk and extremities. Neuro: No lateralizing deficits. No tremors Meds Medications Reviewed. Radiology None new Dr. Marie Singh DO. [facility] Office: [phone] Pharmacokinetic Consult - Vancomycin Dosing Yolanda Villanueva is a 24 y.o. female for whom pharmacy has been consulted for vancomycin dosing for meningitis/EARTH MOVER infection. Today is day 2 of vancomycin therapy. Relevant clinical data and objective history reviewed: Allergies: Patient has no known allergies. Results from last 3 days Lab Units 11/05/24 0158 11/04/24 1654 CREATININE mg/dL 2.26* 1.88* BUN mg/dL 37* 27* WBC X10E9/L 31.5* 40.2* HEMOGLOBIN g/dL 13.4 13.2 HEMATOCRIT % 40.0 40.2 MCV fL 89 90 Temp Readings from Last 3 Encounters: 11/05/24 37.2 C (98.9 F) (Oral) 11/04/24 37.1 C (98.8 F) 09/14/24 36.9 C (98.4 F) (Oral) Renal Parameters: I/O last 3 completed shifts: In: 536.4 [I.V.:476.9; IV Piggyback:59.4] Out: 1150 [Urine:1150] Calculated CrCl (IBW): 33.1 mL/min Culture Data: Microbiology Results Procedure Component Value Units Date/Time Resp Pathogens Panel/SARS CoV-2 [[id number]] Collected: 11/05/24155 Specimen: Nasopharynx Updated: 11/05/24314 Specimen Source NASO PHARYNX Adenovirus Detection by PCR Not Detected Coronavirus 229e Not Detected Coronavirus hku1 Not Detected Coronavirus nl63 Not Detected Coronavirus oc43 Not Detected Human metapneumovirus Not Detected Rhinovirus/enterovirus Not Detected Influenza A Not Detected Influenza B Not Detected Parainfluenza 1 Not Detected Parainfluenza 2 Not Detected Parainfluenza 3 Not Detected Parainfluenza 4 Not Detected Respiratory syncytial virus Not Detected Bordetella parapertussis Not Detected Bordetella pertussis Not Detected Chlamydophila pneumophilia Not Detected Mycoplasma pneumoniae Not Detected SARS COV 2 Not Detected Mrsa Pcr nasal swab [[id number]] Collected: 11/05/24 0156 Specimen: Nasal Updated: 11/05/24 0340 Mrsa PCR Negative Urine culture [[id number]] Resulted: 11/04/24 2305 Specimen: Urine Updated: 11/05/24 0216 SARS/FLU A+B/RSV by NAAT/Molecular (M4RT Collection Tube) [[id number]] Collected: 11/04/24 191 Specimen: Nasopharynx Updated: 11/04/242005 FLU A PCR Negative FLU B PCR Negative RSV by PCR Negative SARS CoV 2 BY PCR Not Detected Blood culture [[id number]] Collected: 11/04/24 181 Specimen: Blood Updated: 11/05/24 1036 Culture NO GROWTH <24 HRS Blood culture [[id number]] Collected: 11/04/24 1715 Specimen: Blood Updated: 11/05/24 1038 Culture NO GROWTH <24 HRS Concurrent Antibiotics: Anti-infectives (From admission, onward) Start Dose/Rate Route Frequency Ordered Stop 11/06/24 1000 metroNIDAZOLE (FLAGYL) IVPB 500 mg/100 mL in iso-osmotic sodium chloride (5 mg/mL premix) 500 mg 100 mL/hr over 60 Minutes intravenous Every 12 hours 11/05/24 0131 11/05/24 0600 cefTRIAXone (ROCEPHIN) IVPB 2000 mg/50 mL in iso-osmotic dextrose (40 mg/mL premix) 2,000 mg 100 mL/hr over 30 Minutes intravenous Every 12 hours 11/05/24 0254 11/05/24 0212 vancomycin (VANCOCIN) IVPB Dosed by Levels intravenous Dosed by Levels 11/05/24 0213 Recent Vancomycin Serum Concentrations: Results from last 7 days Lab Units 11/05/24 0254 VANCOMYCIN ug/mL 28.4 Indication: meningitis/EARTH MOVER infection Goal Vancomycin Range: Trough 15-20 mcg/mL Assessment . Patient is currently ordered vancomycin dosed by levels. Today is day 2 of therapy. Renal function assessment: Acute Renal Failure The most recent vancomycin random level was 28.4 mcg/mL collected at 0254 on 11/05. This is a 8 hour level on the 2nd day of therapy and No vancomycin level as been collected for this patient Patient-specific risk-factors for nephrotoxicity include: pre-existing renal impairment and concomitant nephrotoxic medications. Plan Will hold additional dose now. Patient has good UOP. Will recheck random level this evening. The next vancomycin random concentration has been ordered for 11/05 at 1700 Please see electronic record for orders Pharmacy Dosing Service to follow serum concentrations and adjust as needed based on the patient's clinical status. Thank you for consulting. Fiordaliza Lin PharmD Pharmacokinetic Consult - Vancomycin Dosing Yolanda Villanueva is a 24 y.o. female for whom pharmacy has been consulted for vancomycin dosing for meningitis/EARTH MOVER infection. Today is day 1 of vancomycin therapy. Relevant clinical data and objective history reviewed: Allergies: Patient has no known allergies. Results from last 3 days Lab Units 11/04/24 1654 CREATININE mg/dL 1.88* BUN mg/dL 27* WBC X10E9/L 40.2* HEMOGLOBIN g/dL 13.2 HEMATOCRIT % 40.2 MCV fL 90 Temp Readings from Last 3 Encounters: 11/05/24 37 C (98.6 F) (Oral) 11/04/24 37.1 C (98.8 F) 09/14/24 36.9 C (98.4 F) (Oral) Renal Parameters: No intake/output data recorded. Calculated CrCl (TBW): 81.6 kg Culture Data: Microbiology Results Procedure Component Value Units Date/Time Urine culture [[id number]] Resulted: 11/04/24 2305 Specimen: Urine Updated: 11/05/24 0216 SARS/FLU A+B/RSV by NAAT/Molecular (M4RT Collection Tube) [[id number]] Collected: 11/04/24 191 Specimen: Nasopharynx Updated: 11/04/242005 FLU A PCR Negative FLU B PCR Negative RSV by PCR Negative SARS CoV 2 BY PCR Not Detected Blood culture [[id number]] Collected: 11/04/241758 Specimen: Blood, Peripheral Draw Updated: 11/04/241828 Blood culture [[id number]] Collected: 11/04/241758 Specimen: Blood, Peripheral Draw Updated: 01/31/25 1829 Concurrent Antibiotics: Anti-infectives (From admission, onward) Start Dose/Rate Route Frequency Ordered Stop 11/06/24 1000 metroNIDAZOLE (FLAGYL) IVPB 500 mg/100 mL in iso-osmotic sodium chloride (5 mg/mL premix) 500 mg 100 mL/hr over 60 Minutes intravenous Every 12 hours 11/05/24 0131 11/05/24 0600 cefEPime (MAXIPIME) IVPB 2000 mg/50 mL in dextrose 5% duplex (40 mg/mL premix) 2,000 mg 12.5 mL/hr over 4 Hours intravenous Every 12 hours 11/05/24 0123 11/05/24 0212 vancomycin (VANCOCIN) IVPB Dosed by Levels intravenous Dosed by Levels 11/05/24 0213 Recent Vancomycin Serum Concentrations: Indication: meningitis/EARTH MOVER infection Goal Vancomycin Range: Trough 15-20 mcg/mL Assessment . Patient is being initiated on vancomycin therapy Renal function assessment: Acute Renal Failure No vancomycin level as been collected for this patient Patient-specific risk-factors for nephrotoxicity include: pre-existing renal impairment and concomitant nephrotoxic medications. Plan Received 1750 mg IV loading dose at outside hospital on 11/04 ~2029 The next vancomycin random concentration has been ordered for 11/05 0500 Please see electronic record for orders Pharmacy Dosing Service to follow serum concentrations and adjust as needed based on the patient's clinical status. Thank you for consulting. Kati Ariza RPH [facility] Department of Pharmacy Pharmacy-Physician Communication Due to a drug shortage, metronidazole the dose interval was adjusted to q12h per temporary [facility] approval. If you need additional information, please contact a pharmacist at [phone] . Thank you, documented in this encounter [facility] 11-06-2024 Consult note Formatting of th is note is different from the original. NEPHROLOGY CONSULT NOTE Date of Admission: 11/05/2024 1:13 AM Reason for Consult: Acute kidney injury Referring Physician: Dr. Singh PCP: OTTONIEL ARIAS MD Chief Complaint: No chief complaint on file. History of Present Illness: Yolanda Summer Back is a 24 y.o. female who is seen at the request of Dr. Singh to evaluate acute kidney injury. The patient presented to an outside hospital on November 04, 2024 after having suffered seizures at home. Apparently she has had a number of seizures recently in her found her unresponsive in bed. She was transferred to the [facility] for ongoing care. Initial laboratories on November 04 sodium 130 potassium 2.8 chloride 99 total CO2 19 BUN 27 creatinine 1.8 calcium 8.2 total protein 8.2 albumin 4.5 AST 356 ALT 122 anion gap was 38 magnesium 2.8. CK total was 26,584. The CK has increased to 32,131. Myoglobin has decreased from 7585-5808. The patient had 6.6 L of urine output yesterday and 1.3 L today. The patient's creatinine was 0.64 on 09/12/2024 1.88 11/04/2024. 2.26 November 05, 2024. 2.43 November 05, 2024 at 7:18 p.m.. Laboratories today at 2:00 a.m. showed a sodium 140 potassium 4.1 chloride 106 total CO2 22 BUN 36 creatinine 2.33 AST is 1597 ALT 1427 EGFR 29. She has received ceftriaxone 2 g IV Q 24 hours and Flagyl 500 mg IV q.12. The patient has been evaluated by the Infectious Disease Service who feels that the patient may have sepsis syndrome secondary to intra-abdominal source. A CT scan of the brain showed no acute or subacute abnormality. A CT scan of the abdomen pelvis showed substantial liquid stool throughout much of the large bowel concerning for colitis or enteritis. There was distal esophageal wall thickening A urinalysis showed 70 mg/dL protein less than 1 red blood cell and 1 white blood cell per high-power field. The fractional excretion of sodium was less than 1% the urine protein creatinine ratio was 2.45 gram/gram. She is on Keppra for history of seizure disorder. A continuous EEG is in progress. This afternoon she is awake alert and oriented. PMH: Seizure disorder Depression Gastroesophageal reflux disease PSH: Past Surgical History: Procedure Laterality Date COLONOSCOPY N/A 04/10/2023 Performed by Joey Stacy MD at [facility] ESOPHAGOGASTRODUODENOSCOPY N/A 04/10/2023 Performed by Joey Stacy MD at [facility] * No surgery found * Allergies: No Known Allergies Home Meds: Medications Prior to Admission Medication Sig Dispense Refill Last Dose/Taking ARIPiprazole (ABILIFY) 2 mg tablet Take 1 tablet (2 mg total) by mouth in the morning. Taking cyclobenzaprine (FLEXERIL) 10 mg tablet Take 1 tablet (10 mg total) by mouth 2 (two) times a day as needed for muscle spasms. 10 tablet 0 Other - as prescribed hydrOXYzine (ATARAX) 25 mg tablet Take 1 tablet (25 mg total) by mouth every 8 (eight) hours as needed. Other - as prescribed lamoTRIgine (LaMICtal) 100 mg tablet Take 100 mg in the morning and 50 mg at night for 2 weeks, after that start taking 100 mg once in the morning and once at night and continue on that dose (Patient taking differently: Take 1 tablet (100 mg total) by mouth in the morning and 1 tablet (100 mg total) before bedtime.) 60 tablet 2 Taking Differently methylPREDNISolone (MEDROL, PENELOPE,) 4 mg tablet Taking PARoxetine (PAXIL) 10 mg tablet Take 1 tablet (10 mg total) by mouth every morning. Past Week venlafaxine 75 MG tablet extended release 24hr 24 hr tablet Take 1 tablet (75 mg total) by mouth daily with breakfast. Past Week PARoxetine (PAXIL) 40 mg tablet Take 1 tablet (40 mg total) by mouth in the morning. (Patient taking differently: Take 1 tablet (40 mg total) by mouth in the morning. Takes in addition the the 10mg dose to equal 50mg.) 90 tablet 2 Inpatient Meds: ARIPiprazole, 2 mg, oral, Daily cefTRIAXone (ROCEPHIN) IV, 2,000 mg, intravenous, Q24H dexAMETHasone, 10 mg, intravenous, Q6H famotidine, 20 mg, intravenous, Q24H VANESSA heparin (porcine), 5,000 Units, subcutaneous, Q12H VANESSA levETIRAcetam, 1,000 mg, intravenous, Q12H metroNIDAZOLE, 500 mg, oral, Q12H VANESSA nicotine, 1 patch, transdermal, Daily PARoxetine, 50 mg, oral, Daily venlafaxine XR, 75 mg, oral, Daily with breakfast Inpatient Infusion Meds: dexmedeTOMIDine, 0.2-1 mcg/kg/hr, Last Rate: Stopped (11/06/24 1320) lactated ringer's, 125 mL/hr, Last Rate: Stopped (11/06/24 1200) lactated ringer's, 125 mL/hr, Last Rate: 125 mL/hr (11/06/24 1321) Nutrition: Dietary Orders (From admission, onward) Start Ordered 11/05/24 0801 Adult diet Clear Liquid Diet effective now Question: Diet Type: Answer: Clear Liquid 11/05/24 0800 Social History: Social History Socioeconomic History Marital status: Spouse name: Not on file Number of children: Not on file Years of education: Not on file Highest education level: Not on file Occupational History Not on file Tobacco Use Smoking status: Former Current packs/day: 0.00 Types: Cigarettes Quit date: 2020 Years since quittin.0 Smokeless tobacco: Never Vaping Use Vaping status: Every Day Substance and Sexual Activity Alcohol use: Yes Comment: x1/week Drug use: Yes Types: Marijuana Comment: daily Sexual activity: Yes Partners: Male control/protection: Condom Other Topics Concern Not on file Social History Narrative Not on file Social Drivers of Health Financial Resource Strain: Low Risk (09/12/2024) Overall Financial Resource Strain (CARDIA) Difficulty of Paying Living Expenses: Not hard at all Food Insecurity: No Food Insecurity (11/05/2024) Hunger Screening Food Insecurity - Worry: Never True Food Insecurity - Inability: Never True Transportation Needs: No Transportation Needs (11/05/2024) PRAPARE - Transportation Lack of Transportation (Medical): No Lack of Transportation (Non-Medical): No Physical Activity: Not on file Stress: Not on file Social Connections: Not on file Interpersonal Safety: Not At Risk (11/05/2024) Humiliation, Afraid, Rape, and Kick questionnaire Fear of Current or Ex-Partner: No Emotionally Abused: No Physically Abused: No Sexually Abused: No Housing Instability: Low Risk (11/05/2024) Housing Instability Housing Instability: No Family History: Family History Problem Relation Age of Onset Kidney disease Father Miscarriages / Stillbirths Sister Lung cancer Maternal Grandmother Throat cancer Paternal great-grandmother Review of Systems: All other systems reviewed and are negative. Review of systems not obtained due to patient factors. Constitutional: No fevers chills or night sweats no weight loss Eyes: No scleral icterus no conjunctiva pallor is no visual changes no blurry vision Ears, nose, mouth, throat, and face: No ear pain no mucositis no sore throat Respiratory: No shortness of breath no hemoptysis, no cough, no wheezing Cardiovascular: No chest pain, no palpitations Gastrointestinal: No nausea or vomiting no abdominal pain, no abdominal cramping, normal bowel movements, no diarrhea or constipation Integument/breast: No rashes, and no suspicious lesions or ecchymosis Hematologic/lymphatic: No easy bruising or bleeding, and noted no enlarged lymph nodes Neurological: No headaches, no gait imbalance, no cognitive changes, no focal motor weakness Behavioral/Psych: No significant anxiety or depression no hallucinations Physical Exam: Admission Weight: Weight: 91.9 kg (202 lb 9.6 oz) Vitals: Vitals: 11/06/24 1000 11/06/24 1100 11/06/24 1200 11/06/24 1300 BP: 115/85 (!) 120/91 116/86 99/66 Pulse: 87 83 80 76 Resp: 19 16 Temp: 36.9 C (98.4 F) TempSrc: Oral SpO2: 100% 100% 98% 97% Weight: Height: INTAKE/OUTPUT: Intake/Output Summary (Last 24 hours) at 11/06/2024 1430 Last data filed at 11/06/2024 1200 Gross per 24 hour Intake 2349.76 ml Output 5675 ml Net -3325.24 ml General Appearance: Healthy, alert, active, cooperative, and in no distress Head: Normocephalic, without obvious abnormality, atraumatic Eyes: conjunctivae/corneas clear. PERRL, EOM's intact. Fundi benign. ENT: ENT exam normal, no neck nodes or sinus tenderness Neck: no adenopathy, no carotid bruit, no JVD, supple, symmetrical, trachea midline and thyroid not enlarged, symmetric, no tenderness/mass/nodules Lungs: clear to auscultation bilaterally Heart: regular rate and rhythm, S1, S2 normal, no murmur, click, rub or gallop Abdomen: soft, non-tender; bowel sounds normal; no masses, no organomegaly Extremities: extremities normal, atraumatic, no cyanosis or edema Skin: Skin color, texture, turgor normal. No rashes or lesions Neurologic: Alert and oriented X 3, normal strength and tone. Normal symmetric reflexes. Normal coordination and gait Labs: Results from last 7 days Lab Units 11/06/24 0200 11/05/24 1918 11/05/24 0158 11/04/24 1654 SODIUM mmol/L 140 139 136 130* POTASSIUM mmol/L 4.1 4.1 4.0 2.8* CHLORIDE mmol/L 106 105 108 99 CO2 mmol/L 22 24 16* 19* BUN mg/dL 36* 37* 37* 27* CREATININE mg/dL 2.33* 2.43* 2.26* 1.88* CALCIUM mg/dL 7.7* 7.7* 7.4* 8.2* PHOSPHORUS mg/dL 4.6 -- 6.4* -- MAGNESIUM mg/dL 2.1 -- 2.5 2.8* Results from last 7 days Lab Units 11/06/24 0200 11/05/24 0158 11/04/24 1654 WBC X10E9/L 21.6* 31.5* 40.2* HEMOGLOBIN g/dL 10.4* 13.4 13.2 HEMATOCRIT % 30.3* 40.0 40.2 PLATELETS X10E9/L 242 297 344 Results from last 7 days Lab Units 11/06/24 0200 11/05/24 0158 11/04/24 1654 MAGNESIUM mg/dL 2.1 2.5 2.8* Lab Results Component Value Date CALCIUM 7.7 (L) 11/06/2024 No results found for: IRON , TIBC , FERRITIN IMPRESSION 1. Acute kidney injury: The differential includes: 1. Acute urate nephropathy in the setting of rhabdomyolysis. 2. Prerenal factors 3. Infection related acute tubular necrosis. 2. Rhabdomyolysis in the setting of seizure disorder. 3. Sepsis syndrome with leukocytosis: Concern for intra-abdominal process. The patient is on ceftriaxone and Flagyl. Leukocytosis is declining. 4. Generalized seizure disorder: On Keppra. Possible noncompliance with Keppra at home. 5. Anxiety and depression 6. Anemia: In the setting of acute illness 7. Transaminitis: Likely due to rhabdomyolysis itself. 8. New onset extremity and truncal rash RECOMMENDATIONS 1. IV fluids with alkali 2. There were no indications for hemodialysis at this time given that creatinine may be improving and the patient is nonoliguric, not hyperkalemic, nor significantly acidotic. 3. Carefully monitor electrolytes and renal chemistries 4. No Jevon inhibitors angiotensin receptor blockers or nonsteroidal anti-inflammatory drugs Case discussed with the patient and her family. I advised them that hemodialysis could become a therapeutic consideration in the event that her renal situation would worsened, she become hyperkalemic, acidotic or oliguric. MARJORIE CURIEL MD,PhD. [facility] ANY QUESTIONS FEEL FREE TO CALL: 1. OFFICE [phone] 2. ANSWERING SERVICE: [phone] Associated Order(s): IP CONSULT TO INFECTIOUS DISEASES Images from the original note were not included. Infectious Diseases Academic Team - Initial Consult Note - Please contact us via [employer] chat. After hours, call [phone] Patient name: Yolanda Ma Back Patient Today's Date and Time: 11/05/2024, 7:29 PM Admission Date: 11/05/2024 Impression: Sepsis with borderline fever and leukocytosis thought to be of bacterial origin with no clear etiology, LP was attempted and failed at the outside facility, due to improvement in mental status repeat LP was not done. The source seems to be intra-abdominal but no clear fluid collection and the patient is not having diarrhea which is inconsistent with the large amount of liquid stool present in her colon. Her abdomen is fairly benign on exam. I agree with Neurology that the risk of meningitis is fairly low. She does have rhabdomyolysis with very high CK, myoglobin and ASAT/ALT and RAKESH with a creatinine of 2.2 up jeni 1.8 up from normal baseline, which can explain the high procalcitonin even in the absence of a bacterial infection Rash - either viral syndrome or drug rash, possibly related to keppra. Defer to neurology decision to continue with it or not. Recommendations: We will drop down the dose of ceftriaxone from 2 g q.12 to 2 g daily will change the Flagyl to oral q12h will stop the vancomycin send stool for GI panel and for C diff if she makes any stool today. She did not have antibiotics prior to admission, however community-acquired C diff with ileus is not unheard of I will take her off isolation as the risk of Neisseria meningitidis infection is quite low. Subjective Reason for consultation / Chief complaint: Seizure, fever, leukocytosis. History of Present Illness Yolanda Villanueva is a 24 y.o.-year-old female who was initially admitted on 11/05/2024. The patient has a history of obesity with a BMI of 34 [place] depression, gastritis, seizure disorder - she started having seizures about a year ago. No clear etiology. Recently she had some changes on her antiepileptics and she developed a rash after Keppra was added. She presented to [facility] in [place] on November 04 yesterday with seizures. She was given Versed and Zofran as she was nauseated has some vomiting and diarrhea. She had a borderline fever in the ER, she was tachycardic and tachypneic white count was 40 5% bands sodium was 130 CK was 26,000, procalcitonin was 40, lactate 2.9. CT of the abdomen showed liquid stool throughout the large bowel suspected underlying colitis/enteritis. Distal esophageal thickening. No visible obstruction. Chest x-ray was normal. CT brain was normal. Respiratory pathogen panel was negative, a GI panel was not sent. Diarrhea stopped. MRSA nasal PCR negative No urinary symptoms She is now more awake and she was able to give some history. Her neck is not rigid and she has no photophobia. Fever has resolved rapidly and was very low grade. Our consultation addresses :complex disease transmission risk assessment and mitigation complex antimicrobial therapy counseling and treatment Past Medical History: Past Medical History: Diagnosis Date Anxiety March 2013 Depression March 2013 Eczema 2009 GERD (gastroesophageal reflux disease) Seizures ([facility] Visual impairment 2004 Past Surgical History: Past Surgical History: Procedure Laterality Date COLONOSCOPY N/A 04/10/2023 Performed by Joey Stacy MD at [facility] ESOPHAGOGASTRODUODENOSCOPY N/A 04/10/2023 Performed by Joey Stacy MD at [facility] Medications: ARIPiprazole, 2 mg, oral, Daily cefTRIAXone (ROCEPHIN) IV, 2,000 mg, intravenous, Q12H dexAMETHasone, 10 mg, intravenous, Q6H famotidine, 20 mg, intravenous, Q24H VANESSA heparin (porcine), 5,000 Units, subcutaneous, Q12H VANESSA levETIRAcetam, 1,000 mg, intravenous, Q12H [START ON 11/06/2024] metroNIDAZOLE, 500 mg, intravenous, Q12H nicotine, 1 patch, transdermal, Daily PARoxetine, 50 mg, oral, Daily vancomycin, , intravenous, Dosed by Levels venlafaxine XR, 75 mg, oral, Daily with breakfast Social History: Social History Socioeconomic History Marital status: Tobacco Use Smoking status: Former Current packs/day: 0.00 Types: Cigarettes Quit date: 2020 Years since quittin.0 Smokeless tobacco: Never Vaping Use Vaping status: Every Day Substance and Sexual Activity Alcohol use: Yes Comment: x1/week Drug use: Yes Types: Marijuana Comment: daily Sexual activity: Yes Partners: Male control/protection: Condom Social Drivers of Health Financial Resource Strain: Low Risk (09/12/2024) Overall Financial Resource Strain (CARDIA) Difficulty of Paying Living Expenses: Not hard at all Food Insecurity: No Food Insecurity (11/05/2024) Hunger Screening Food Insecurity - Worry: Never True Food Insecurity - Inability: Never True Transportation Needs: No Transportation Needs (11/05/2024) PRAPARE - Transportation Lack of Transportation (Medical): No Lack of Transportation (Non-Medical): No Interpersonal Safety: Not At Risk (11/05/2024) Humiliation, Afraid, Rape, and Kick questionnaire Fear of Current or Ex-Partner: No Emotionally Abused: No Physically Abused: No Sexually Abused: No Housing Instability: Low Risk (11/05/2024) Housing Instability Housing Instability: No Family History: Family History Problem Relation Age of Onset Kidney disease Father Miscarriages / Stillbirths Sister Lung cancer Maternal Grandmother Throat cancer Paternal great-grandmother Immunization History: Immunization History Administered Date(s) Administered DTaP, Unspecified 2000, 2000, 2000, 04/14/2001, 05/08/2005 HPV Quadrivalent 06/16/2012 Hep A, 2 Dose 06/16/2012 Hep B, Adolescent or Pediatric 2000, 2000, 2000, 2000 HiB 2000, 2000, 04/14/2001 IPV 2000, 2000, 05/08/2005 MMR 04/14/2001, 05/08/2005 Meningococcal MCV4P 05/18/2017 Pneumococcal Conjugate 05/08/2005 Polio, Unspecified 2000 Tdap 06/16/2012, 05/18/2017 Varicella 05/30/2003 Allergies: No Known Allergies Review of Systems: Ten systems reviewed and negative except as described in the HPI Objective Physical Examination: BP (!) 135/99 Pulse 101 Temp 36.9 C (98.4 F) (Oral) Resp 24 Ht 162.6 cm (5' 4 ) Wt 91.9 kg (202 lb 9.6 oz) SpO2 97% BMI 34.78 kg/m Temperature Range: Temp: 36.9 C (98.4 F) Temp Av.9 C (98.5 F) Min: 36.6 C (97.9 F) Max: 37.2 C (98.9 F) General Appearance: Awake, alert, and in no apparent distress. She looks mildly confused but she is conversant and able to give history. Head: Normocephalic, without obvious abnormality, atraumatic Eyes: Pupils equal, round, reactive, to light and accommodation; extraocular movements intact; sclera anicteric; conjunctivae pink ENT: Oropharynx clear, without erythema, exudate, or thrush. Neck: Supple, without lymphadenopathy. No rigidity whatsoever Pulmonary/Chest: Clear to auscultation, without wheezes, rales, or rhonchi Cardiovascular: Regular rate and rhythm without murmurs, rubs, or gallops. Abdomen: Soft, nontender, nondistended. Extremities: No cyanosis, clubbing, edema, no joint effusions. Neurologic: Moves extremities. Sensation grossly intact Skin: rash on abdomen arms and legs Labs: Results from last 7 days Lab Units 11/05/24 0158 11/04/24 1654 WBC X10E9/L 31.5* 40.2* HEMOGLOBIN g/dL 13.4 13.2 HEMATOCRIT % 40.0 40.2 MCV fL 89 90 PLATELETS X10E9/L 297 344 NEUTROS ABS MAN X10E9/L 28.8* 35.8* Results from last 7 days Lab Units 11/05/24 1745 11/05/24 0158 11/05/24 0119 11/04/24 1654 SODIUM mmol/L -- 136 -- 130* POTASSIUM mmol/L -- 4.0 -- 2.8* CHLORIDE mmol/L -- 108 -- 99 CO2 mmol/L -- 16* -- 19* BUN mg/dL -- 37* -- 27* CREATININE mg/dL -- 2.26* -- 1.88* BEDSIDE GLUCOSE mg/dL 108* -- 105* -- GLUCOSE mg/dL -- 104* -- 88 CALCIUM mg/dL -- 7.4* -- 8.2* ALK PHOS U/L -- 86 -- 96 ALT U/L -- 216* -- 122* AST U/L -- 488* -- 356* Results from last 7 days Lab Units 11/05/24 0158 11/04/24 1654 PROCALCITONIN ng/mL 38.12* 40.05* CRP mg/dL -- 1.2* Results from last 7 days Lab Units 11/04/24 2308 SPECIFIC GRAVITY KRISTA 1.010 LEUKOCYTE ESTERASE KRISTA Trace* UROBILINOGEN KRISTA eu/dL 0.2 Imaging Studies: EEG Video Monitoring Daily Result Date: 11/05/2024 Will be included in the next report 11/05-11/06 Ray Mina MD Baseline Routine EEG Result Date: 11/05/2024 Images from the original result were not included. History This is a routine EEG in a patient with concerns for generalized seizures. Procedure This is a standard digital EEG performed in the 10-20 International system and was reviewed with multiple reformattable montages Technical Description There is no well defined posterior dominant rhythm noted. The background is primarily composed of semirhythmical low 20-30 uv theta and delta range frequencies. Semi rhythmical theta and delta range activity is intermixed with occasional beta activity noted over the frontal and central region. There is nearly continuous attenuation of the background frequencies with appearance of vertex waves and sleep spindles. Hyperventilation is deferred. Photic stimulation fails to elicit a sustained driving response. There is no evidence of definite epileptiform activity during this study Clinical Interpretation This EEG in the awake and asleep states is abnormal due to the presence of generalized background slowing suggestive of bi-hemispheric cerebral dysfunction that can be seen in post ictal states, metabolic, hypoxic or toxic encephalopathies, sedative medication use or primary neurological disorders. Ray Mina MD Naturopathic Oncology Provider Neurology/Neurophysiology [facility] X-ray chest 1 view Result Date: 11/04/2024 XR CHEST 1 VW 11/04/2024 8:13 PM INDICATION: sepsis, seizures, transient alteration of awareness, tachycardia COMPARISON: XR chest 11/04/2024 TECHNIQUE: AP supine radiographic view(s) obtained. FINDINGS: Lines/Tubes/Devices: None. Respiratory: No pleural effusion or focal consolidation. Hypoventilation with bronchovascular crowding. Cardiomediastinum: Nonenlarged silhouette. IMPRESSION: * No acute pulmonary process. Hypoventilation with bronchovascular crowding. Approved by Resident: Regis Dotson MD on 11/04/2024 8:39 PM I, Kane Burger MD have personally reviewed the image(s) and agree with and/or edited the report Finalized by Kane Burger MD on 11/04/2024 9:[address] abdomen and pelvis without contrast Result Date: 11/04/2024 CLINICAL INFORMATION: Sepsis. TECHNIQUE: CT Abdomen and Pelvis without intravenous contrast. All CT scans at this facility use dose modulation, iterative reconstruction, and/or weight based dosing when appropriate to reduce radiation dose to as low as reasonably achievable. COMPARISON: No relevant prior studies available. FINDINGS: Assessment in the absence of intravenous contrast is suboptimal, especially with respect to vasculature, metastatic disease, and infectious precesses [if clinically relevant]. Despite this constraint, best attempt is made: Dependent atelectasis. Mild distal esophageal wall thickening. Hepatic steatosis. Normal gallbladder, spleen, adrenal glands, pancreas. Liquid stool throughout visualized large bowel extending to the level of the anus. Normal appendix. No free fluid or fluid collections. Unremarkable uterus. Prominent bilateral ovaries. No free fluid. No aggressive osseous lesions. Degenerative changes lumbar spine, posterior disc osteophyte complex at L5-S1. Question large disc extrusion at L4-5. IMPRESSION: * Substantial liquid stool throughout much of the large bowel, suspect underlying colitis/enteritis. Similarly, distal esophageal wall thickening, correlate for clinical signs of esophagitis. No high-grade transition point to suggest obstruction. Finalized by Rohit Villarreal MD on 11/04/2024 8:[address] brain without contrast Result Date: 11/04/2024 EXAM:CT BRAIN WO CONT INDICATION: Seizure disorder, clinical change COMPARISON: 12/27/2023 TECHNIQUE: Standard noncontrast axial CT sections through the head. All CT scans at this facility use dose modulation, iterative reconstruction, and/or weight based dosing when appropriate to reduce radiation dose to as low as reasonably achievable. FINDINGS: Brain Parenchyma: No acute hemorrhage, cerebral edema, or acute cortical infarction. No mass effect, or midline shift. Ventricles and Sulci: Normal for age. Extra-Axial Spaces: No extra-axial fluid collection. Orbits, paranasal sinuses, midface structures, mastoid air cells: Mild polypoid mucosal thickening of the maxillary sinuses. Cranium and extracranial soft tissues: Normal IMPRESSION: No acute or subacute intracranial abnormalities. Finalized by Subhash Colon on 11/04/2024 6:54 PM I have personally reviewed these studies. Cultures: Microbiology Results Procedure Component Value Units Date/Time Resp Pathogens Panel/SARS CoV-2 [[id number]] Collected: 11/05/24 015 Specimen: Nasopharynx Updated: 11/05/24 0315 Specimen Source NASO PHARYNX Adenovirus Detection by PCR Not Detected Coronavirus 229e Not Detected Coronavirus hku1 Not Detected Coronavirus nl63 Not Detected Coronavirus oc43 Not Detected Human metapneumovirus Not Detected Rhinovirus/enterovirus Not Detected Influenza A Not Detected Influenza B Not Detected Parainfluenza 1 Not Detected Parainfluenza 2 Not Detected Parainfluenza 3 Not Detected Parainfluenza 4 Not Detected Respiratory syncytial virus Not Detected Bordetella parapertussis Not Detected Bordetella pertussis Not Detected Chlamydophila pneumophilia Not Detected Mycoplasma pneumoniae Not Detected SARS COV 2 Not Detected Mrsa Pcr nasal swab [[id number]] Collected: 11/05/24 0156 Specimen: Nasal Updated: 11/05/24 0340 Mrsa PCR Negative Urine culture [[id number]] Resulted: 11/04/24 2305 Specimen: Urine Updated: 11/05/24 0216 SARS/FLU A+B/RSV by NAAT/Molecular (M4RT Collection Tube) [[id number]] Collected: 11/04/24 191 Specimen: Nasopharynx Updated: 11/04/24 2006 FLU A PCR Negative FLU B PCR Negative RSV by PCR Negative SARS CoV 2 BY PCR Not Detected Blood culture [[id number]] Collected: 11/04/24 181 Specimen: Blood Updated: 11/05/24 1036 Culture NO GROWTH <24 HRS Blood culture [[id number]] Collected: 11/04/24 1715 Specimen: Blood Updated: 11/05/24 1038 Culture NO GROWTH <24 HRS Thank you for allowing us to participate in the care of this patient. - DEANGELO MERRILL MD 11/05/24 7:29 PM [facility] Infectious Diseases Please contact us via [employer] chat Associated Order(s): IP CONSULT TO NEUROLOGY Images from the original note were not included. [facility] Neurology General Neurology Consultation Note Consult Neurology Service: [phone] Primary Team: critical care Chief Complaint and Reason for Consultation: breakthrough seizures History: Yolanda Villanueva is a 24 y.o. year old female for whom Neurology was consulted for chief complaint of breakthrough seizures. Patient has a past medical history notable for seizure disorder, anxiety, depression, gastritis, and tobacco use. Patient initially presented to outside hospital for concerns of recurrent seizures at home. History is mainly obtained per chart review and family present at bedside. Patient's spouse states that around 9:00 a.m. on 11/04/2024 he noted the patient to have a 1 minute seizure-like activity which he recorded which appears to be the patient convulsing with her bilateral upper extremities flexed and her eyes closed. Spouse states that after this episode in the morning the patient was confused for about an hour and a half as well as anxious and then it was back to baseline. He said shortly after she was back to baseline she had another episode of seizure-like activity. Additionally, spouse states that he also thinks that the patient may have had a seizure during the night as she seemed to be confused prior to the 1 at 9:00 a.m.. Spouse states that he then took her to outside hospital for the concerns of recurrent seizures. Spouse states that the patient has been compliant with her medications including Keppra and Lamictal however developed a rash concerning for drug-induced rash versus eczema 3 days prior. Spouse states that the patient was still taking her Lamictal up until her admission to outside hospital. At outside hospital patient was found to be tachycardic and tachypneic with initial labs remarkable for elevated WBC count of 40, hyponatremia of 130, hypokalemia of 2.8, CK of 26,000, procalcitonin 40, rapid lactate of 2.9, and negative COVID and flu. A CT brain was obtained which she was negative for any acute intracranial abnormalities. CT abdomen and pelvis showed possible colitis/enteritis. At outside hospital a bedside lumbar puncture was attempted however failed. Patient was started on empiric antibiotics for possible meningitis as well as colitis/enteritis. Patient was then transferred to [facility] for further management. On initial examination, patient was seen to be drowsy and in bilateral wrist restraints. Patient requires stimulation to answer questions and follow commands. Patient was A&O x3 oriented to person, place, and time. Patient seems to be a bit confused as to why she was in the hospital. Spouse at bedside states that prior to her seizure activity the morning of 11/04/2024 patient was in her normal bill of health. Patient was seen to move all 4 extremities against gravity and against the restraints. Patient withdrew to pain in all 4 extremities. 2+ reflexes in the bilateral upper and lower extremities. Downgoing plantars and absent ankle clonus. Cranial nerves 2-12 were intact. 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 Resolved Ambulatory Problems Diagnosis Date Noted No Resolved Ambulatory Problems Past Medical History: Diagnosis Date Seizures ([facility]) Family History: Family History Problem Relation Age of Onset Kidney disease Father Miscarriages / Stillbirths Sister Lung cancer Maternal Grandmother Throat cancer Paternal great-grandmother Social History: Social History Socioeconomic History Marital status: Spouse name: Not on file Number of children: Not on file Years of education: Not on file Highest education level: Not on file Occupational History Not on file Tobacco Use Smoking status: Every Day Current packs/day: 0.00 Types: Cigarettes Last attempt to quit: 2020 Years since quittin.0 Smokeless tobacco: Never Vaping Use Vaping status: Former Substance and Sexual Activity Alcohol use: Not Currently Comment: Patient just found out she was Drug use: Yes Types: Marijuana Comment: daily Sexual activity: Yes Partners: Male control/protection: Condom Other Topics Concern Not on file Social History Narrative Not on file Social Drivers of Health Financial Resource Strain: Low Risk (09/12/2024) Overall Financial Resource Strain (CARDIA) Difficulty of Paying Living Expenses: Not hard at all Food Insecurity: Patient Unable To Answer (11/04/2024) Hunger Screening Food Insecurity - Worry: Patient unable to answer Food Insecurity - Inability: Patient unable to answer Transportation Needs: No Transportation Needs (09/12/2024) PRAPARE - Transportation Lack of Transportation (Medical): No Lack of Transportation (Non-Medical): No Physical Activity: Not on file Stress: Not on file Social Connections: Not on file Interpersonal Safety: Not At Risk (09/12/2024) Humiliation, Afraid, Rape, and Kick questionnaire Fear of Current or Ex-Partner: No Emotionally Abused: No Physically Abused: No Sexually Abused: No Housing Instability: Low Risk (09/12/2024) Housing Instability Housing Instability: No Medications: Current Facility-Administered Medications: calcium gluconate IVPB 1000 mg/50 mL (20 mg/mL premix), 1,000 mg, intravenous, PRN OR calcium gluconate IVPB 2000 mg/100 mL (20 mg/mL premix), 2,000 mg, intravenous, PRN OR calcium gluconate 3,000 mg in sodium chloride 0.9 % 100 mL IVPB, 3,000 mg, intravenous, PRN, Richard Prielipp, SHIP PAINTER HELPER-EDUCATIONAL TECHNOLOGY SPECIALIST cefEPime (MAXIPIME) IVPB 2000 mg/50 mL in dextrose 5% duplex (40 mg/mL premix), 2,000 mg, intravenous, Q12H, Richard Prielipp, SHIP PAINTER HELPER-EDUCATIONAL TECHNOLOGY SPECIALIST dexAMETHasone sodium phos (PF) (DECADRON) injection 10 mg, 10 mg, intravenous, Q6H, Richard Prielipp, SHIP PAINTER HELPER-EDUCATIONAL TECHNOLOGY SPECIALIST, 10 mg at 11/05/24 0148 dextrose (GLUTOSE) 40 % gel 15 g, 15 g, oral, PRN, Richard Prielipp, SHIP PAINTER HELPER-EDUCATIONAL TECHNOLOGY SPECIALIST dextrose 5 % (D5W) infusion, 100 mL/hr, intravenous, Continuous PRN, Richard Prielipp, SHIP PAINTER HELPER-EDUCATIONAL TECHNOLOGY SPECIALIST dextrose 50 % in water (D50W) 50% solution 25 mL, 25 mL, intravenous, PRN, Richard Prielipp, SHIP PAINTER HELPER-EDUCATIONAL TECHNOLOGY SPECIALIST glucagon HCL injection 1 mg, 1 mg, intramuscular, PRN, Richard Prielipp, SHIP PAINTER HELPER-EDUCATIONAL TECHNOLOGY SPECIALIST lactated ringers infusion, 125 mL/hr, intravenous, Continuous, Richard Prielipp, SHIP PAINTER HELPER-EDUCATIONAL TECHNOLOGY SPECIALIST, Last Rate: 100 mL/hr at 11/05/24 014, 100 mL/hr at 11/05/24 014 levETIRAcetam (KEPPRA) IVPB 1000 mg/100 mL in iso-osmotic sodium chloride (10 mg/mL premix), 1,000 mg, intravenous, Q12H, Richard Prielipp, SHIP PAINTER HELPER-EDUCATIONAL TECHNOLOGY SPECIALIST magnesium sulfate IVPB 2000 mg/50 mL in iso-osmotic water (40 mg/mL premix), 2,000 mg, intravenous, PRN OR magnesium sulfate IVPB 4000 mg/100 mL in iso-osmotic water (40 mg/mL premix), 4,000 mg, intravenous, PRN, Richard Prielipp, SHIP PAINTER HELPER-EDUCATIONAL TECHNOLOGY SPECIALIST [START ON 11/06/2024] metroNIDAZOLE (FLAGYL) IVPB 500 mg/100 mL in iso-osmotic sodium chloride (5 mg/mL premix), 500 mg, intravenous, Q12H, Richard Prielipp, SHIP PAINTER HELPER-EDUCATIONAL TECHNOLOGY SPECIALIST potassium chloride (K-TAB,KLOR-CON) CR tablet 20-50 mEq, 20-50 mEq, oral, PRN OR potassium chloride (KAYCIEL) 20 mEq/15 mL solution 20-50 mEq, 20-50 mEq, oral, PRN, Richard Prielipp, SHIP PAINTER HELPER-EDUCATIONAL TECHNOLOGY SPECIALIST potassium chloride IVPB 10 mEq/50 mL in water (0.2 mEq/mL premix), 10 mEq, intravenous, PRN OR potassium chloride IVPB 10 mEq/100 mL in water (0.1 mEq/mL premix), 10 mEq, intravenous, PRN, Richard Prielipp, SHIP PAINTER HELPER-EDUCATIONAL TECHNOLOGY SPECIALIST sodium phosphate 20 mmol in sodium chloride 0.9 % 250 mL IVPB, 20 mmol, intravenous, PRN OR sodium phosphate 20 mmol in sodium chloride 0.9 % 100 mL IVPB, 20 mmol, intravenous, PRN OR sod phos di, mono-K phos mono (K-PHOS NEUTRAL) 250 mg tablet 2 tablet, 2 tablet, oral, PRN, Richard Prielipp, SHIP PAINTER HELPER-EDUCATIONAL TECHNOLOGY SPECIALIST sodium chloride 0.9 % infusion, 10 mL/hr, intravenous, Continuous PRN, Richard Prielipp, SHIP PAINTER HELPER-EDUCATIONAL TECHNOLOGY SPECIALIST sodium chloride 0.9 % infusion, 10 mL/hr, intravenous, Continuous PRN, Richard Prielipp, SHIP PAINTER HELPER-EDUCATIONAL TECHNOLOGY SPECIALIST sodium chloride 0.9 % infusion, 10 mL/hr, intravenous, Continuous PRN, Richard Prielipp, SHIP PAINTER HELPER-EDUCATIONAL TECHNOLOGY SPECIALIST vancomycin (VANCOCIN) IVPB Dosed by Levels, , intravenous, Dosed by Levels, Richard Prielipp, SHIP PAINTER HELPER-EDUCATIONAL TECHNOLOGY SPECIALIST Allergies: No Known Allergies Complete Review of Systems: Review of Systems Unable to perform ROS: Mental status change Physical Exam Vital Signs: Vitals: 11/05/24 0200 BP: (!) 135/98 Pulse: 121 Resp: (!) 26 Temp: SpO2: 94% Neurological Exam Mental Status Drowsy. Oriented only to person, place and time. Speech is normal. Language is fluent with no aphasia. Attention and concentration: Impaired, patient was able to follow simple commands intermittently when repeated stimuli it was given. Limited examination due to patient alertness. Cranial Nerves CN II: Visual acuity is normal. Visual nguyen full to confrontation. CN III, IV, : Extraocular movements intact bilaterally. Normal lids and orbits bilaterally. Pupils equal round and reactive to light bilaterally. CN V: Facial sensation is normal. CN VII: Full and symmetric facial movement. CN VIII: Hearing is normal. CN IX, X: Palate elevates symmetrically. Normal gag reflex. CN XI: Shoulder shrug strength is normal. CN XII: Tongue midline without atrophy or fasciculations. Motor Normal muscle bulk throughout. Normal muscle tone. No abnormal involuntary movements. Patient was able to move all 4 extremities against gravity and the bilateral upper extremities against restraints. Patient was able to withdraw to painful stimuli in all 4 extremities.. Sensory Patient withdrew briskly to painful stimuli in all 4 extremities. Reflexes Right Left Brachioradialis 2+ 2+ Biceps 2+ 2+ Patellar 2+ 2+ Achilles 2+ 2+ Right Plantar: downgoing Left Plantar: downgoing Right pathological reflexes: Ankle clonus absent. Left pathological reflexes: Ankle clonus absent. Coordination Deferred, patient was in bilateral wrist restraints. Gait Deferred, patient was in bilateral wrist restraints. Objective Pertinent Labs: Recent Results (from the past 72 hours) CBC auto differential Collection Time: 11/04/24 4:54 PM Result Value Ref Range White Blood Cells 40.2 (H) 4.0 - 11.0 X10E9/L RBC count 4.47 3.80 - 5.20 X10E12/L Hemoglobin 13.2 11.7 - 15.5 g/dL Hematocrit 40.2 35 - 47 % MCV 90 80 - 100 fL MCH 29.5 27 - 34 pg MCHC 32.9 32 - 36 g/dL RDW 13.6 11.5 - 15.0 % Platelets 344 150 - 450 X10E9/L MPV 7.6 7 - 12 fL Band 5.0 % Seg neutrophil 84.0 % Lymphocyte 2.0 % Monocytes 9.0 % Nucleated RBC 1.0 0.0 - 1.0 /100 WBC Neutrophils Absolute (M) 35.8 (H) 1.5 - 6.6 X10E9/L Lymphocytes Absolute 0.8 (L) 1.0 - 3.5 X10E9/L Monocytes Absolute 3.6 (H) 0 - 0.9 X10E9/L Polychromasia 1+ (A) NONE^NONE Comprehensive metabolic panel Collection Time: 11/04/24 4:54 PM Result Value Ref Range Sodium 130 (L) 134 - 146 mmol/L Potassium, Bld 2.8 (L) 3.5 - 5.0 mmol/L Chloride 99 98 - 109 mmol/L CO2 19 (L) 22 - 32 mmol/L Anion gap 12 5 - 15 mmol/L BUN 27 (H) 5 - 23 mg/dL Creatinine 1.88 (H) 0.40 - 1.00 mg/dL Glucose 88 65 - 99 mg/dL Calcium 8.2 (L) 8.5 - 10.5 mg/dL Total Protein 8.2 (H) 6.0 - 8.0 g/dL Albumin 4.5 3.2 - 5.3 g/dL Alkaline Phosphatase 96 39 - 130 U/L AST 356 (H) 0 - 41 U/L ALT 122 (H) 0 - 31 U/L Total bilirubin 0.6 0.3 - 1.2 mg/dL eGFR (CKD-EPI)non-race dependent 38 (L) >59 ml/min/1.73sq.m Magnesium Collection Time: 11/04/24 4:54 PM Result Value Ref Range Magnesium 2.8 (H) 1.8 - 2.6 mg/dL C-reactive protein Collection Time: 11/04/24 4:54 PM Result Value Ref Range CRP 1.2 (H) 0.000 - 0.744 mg/dL Procalcitonin Collection Time: 11/04/24 4:54 PM Result Value Ref Range Procalcitonin 40.05 (H) <0.05 ng/mL Ethanol Collection Time: 11/04/24 4:54 PM Result Value Ref Range Ethanol Lvl <0.01 0.00 - 0.08 g/dL CK Total Collection Time: 11/04/24 4:54 PM Result Value Ref Range Total CK 26,584 (H) 24 - 170 U/L Lactate w/ Reflex Collection Time: 11/04/24 5:15 PM Result Value Ref Range Lactate w/ Reflex 2.9 (H) 0.4 - 2.0 mmol/L SARS/FLU A+B/RSV by NAAT/Molecular (M4RT Collection Tube) Collection Time: 11/04/24 7:13 PM Result Value Ref Range FLU A PCR Negative Negative^Negative FLU B PCR Negative Negative^Negative RSV by PCR Negative Negative^Negative SARS CoV 2 BY PCR Not Detected Not Detected^Not Detected Lactate Collection Time: 11/04/24 9:19 PM Result Value Ref Range Lactate 1.2 0.4 - 2.0 mmol/L POCT Nursing Urine Macroscopic UA Collection Time: 11/04/24 11:08 PM Result Value Ref Range Specific gravity KRISTA 1.010 1.003 - 1.035 Leukocyte esterase KRISTA Trace (A) Negative^Negative Nitrite KRISTA Negative Negative^Negative Ph 5.5 5.0 - 8.5 Protein KRISTA 100 (A) Negative^Negative mg/dL Urine glucose KRISTA Negative Negative^Negative mg/dL Ketones KRISTA Negative Negative^Negative mg/dL Urobilinogen KRISTA 0.2 <1.1 eu/dL Bilirubin KRISTA Negative Negative^Negative Hemoglobin KRISTA Large (A) Negative^Negative POCT , urine Collection Time: 11/04/24 11:10 PM Result Value Ref Range Nursing urine Negative Negative^Negative Bedside Glucose *Place/Obtain serum glucose if >500(>600 MRH) per glucometer. Collection Time: 11/05/24 1:19 AM Result Value Ref Range Bedside glucose 105 (H) 65 - 99 mg/dL CBC auto differential Collection Time: 11/05/24 1:58 AM Result Value Ref Range White Blood Cells 31.5 (H) 4.0 - 11.0 X10E9/L RBC count 4.49 3.80 - 5.20 X10E12/L Hemoglobin 13.4 11.7 - 15.5 g/dL Hematocrit 40.0 35 - 47 % MCV 89 80 - 100 fL MCH 29.8 27 - 34 pg MCHC 33.4 32 - 36 g/dL RDW 13.7 11.5 - 15.0 % Platelets 297 150 - 450 X10E9/L MPV 7.5 7 - 12 fL Imaging: X-ray chest 1 view Result Date: 11/04/2024 Narrative: XR CHEST 1 VW 11/04/2024 8:13 PM INDICATION: sepsis, seizures, transient alteration of awareness, tachycardia COMPARISON: XR chest 11/04/2024 TECHNIQUE: AP supine radiographic view(s) obtained. FINDINGS: Lines/Tubes/Devices: None. Respiratory: No pleural effusion or focal consolidation. Hypoventilation with bronchovascular crowding. Cardiomediastinum: Nonenlarged silhouette. IMPRESSION: * No acute pulmonary process. Hypoventilation with bronchovascular crowding. Approved by Resident: Regis Dotson MD on 11/04/2024 8:39 PM IKane MD have personally reviewed the image(s) and agree with and/or edited the report Finalized by Kane Burger MD on 11/04/2024 9:[address] abdomen and pelvis without contrast Result Date: 11/04/2024 Narrative: CLINICAL INFORMATION: Sepsis. TECHNIQUE: CT Abdomen and Pelvis without intravenous contrast. All CT scans at this facility use dose modulation, iterative reconstruction, and/or weight based dosing when appropriate to reduce radiation dose to as low as reasonably achievable. COMPARISON: No relevant prior studies available. FINDINGS: Assessment in the absence of intravenous contrast is suboptimal, especially with respect to vasculature, metastatic disease, and infectious precesses [if clinically relevant]. Despite this constraint, best attempt is made: Dependent atelectasis. Mild distal esophageal wall thickening. Hepatic steatosis. Normal gallbladder, spleen, adrenal glands, pancreas. Liquid stool throughout visualized large bowel extending to the level of the anus. Normal appendix. No free fluid or fluid collections. Unremarkable uterus. Prominent bilateral ovaries. No free fluid. No aggressive osseous lesions. Degenerative changes lumbar spine, posterior disc osteophyte complex at L5-S1. Question large disc extrusion at L4-5. IMPRESSION: * Substantial liquid stool throughout much of the large bowel, suspect underlying colitis/enteritis. Similarly, distal esophageal wall thickening, correlate for clinical signs of esophagitis. No high-grade transition point to suggest obstruction. Finalized by Rohit Villarreal MD on 11/04/2024 8:[address] brain without contrast Result Date: 11/04/2024 Narrative: EXAM:CT BRAIN WO CONT INDICATION: Seizure disorder, clinical change COMPARISON: 12/27/2023 TECHNIQUE: Standard noncontrast axial CT sections through the head. All CT scans at this facility use dose modulation, iterative reconstruction, and/or weight based dosing when appropriate to reduce radiation dose to as low as reasonably achievable. FINDINGS: Brain Parenchyma: No acute hemorrhage, cerebral edema, or acute cortical infarction. No mass effect, or midline shift. Ventricles and Sulci: Normal for age. Extra-Axial Spaces: No extra-axial fluid collection. Orbits, paranasal sinuses, midface structures, mastoid air cells: Mild polypoid mucosal thickening of the maxillary sinuses. Cranium and extracranial soft tissues: Normal IMPRESSION: No acute or subacute intracranial abnormalities. Finalized by Subhash Colon on 11/04/2024 6:54 PM Other Testing: PROBLEM LIST: Patient Active Problem List Diagnosis Anxiety Depression Eczema GERD (gastroesophageal reflux disease) Visual impairment Seizure disorder (CMS-HCC) Seizure-like activity (CMS-HCC) Focal epilepsy (CMS-HCC) Seizure (CMS-HCC) Assessment: Yolanda Villanueva is a 24 y.o. year old female for whom Neurology was consulted for chief complaint of breakthrough seizures. Patient has a past medical history notable for seizure disorder, anxiety, depression, gastritis, and tobacco use. Initial examination remarkable for patient being drowsy and slightly confused. Initial labs concerning for metabolic/ infectious etiology.. Impression: Breakthrough seizures potentially secondary to metabolic / infectious etiology versus inadequate AED dosing Plan: Recommend considering substituting cefepime for another equivalent antibiotic for the concerns of neurotoxicity Continue Keppra 1 g b.I.d. Currently holding home Lamictal as patient was potentially experiencing a drug-induced rash at home 3 days prior to admission Follow up on video EEG monitoring Recommend consulting interventional radiology for lumbar puncture Follow up on CSF studies Neurology consult service will continue to follow Rest of care per primary Discussed with Dr. Skelton Signed by Nathalie Mooney MD Neurology Resident, [facility] Please contact via secure chat Staffed with: Dr. Skelton This patient is being followed by the Neurology Resident service. Contact attending directly during these hours: Thursday to 7:30-8:30 A.M. to Thursday 12-1:00 p.m. Primary Neurology service: [phone] Consult neurology service: [phone] Resident Stroke Service: [phone] If the patient belongs to the [facility] service please contact the St[facility] directly. Cosigned by Robin Skelton MD at 11/05/2024 7:03 PM EST Associated attestation - Robin Skelton MD - 11/05/2024 7:03 PM EST Attending Attestation: I saw the patient. I participated and was physically present during the critical/fatima portions of the service. I was directly involved in the management and treatment plan of the patient. I reviewed the resident's note. Additional Notes/Findings: Patient this morning with intact mental status (oriented to date, location, self) with no clear focal deficits. At this time ddx is break-through seizure in the setting of recent LTG cessation (recommended after she developed a rash) vs breakthrough due to an occult underlying infection (of which GI is the highest suspicion, being evaluated by primary team). We will follow up EEG. If no inciting factor is identified, then patient may need additional ASM coverage (current home regimen is LEV 750 mg BID). At this time I do not recommend LP given the low s/f meningitis given her mental status. Rest of plan per excellent resident note. Robin Skelton MD Naturopathic Oncology Provider of Neurology [facility] 11/05/24 documented in this encounter [facility] 11-05-2024 History and physical note CRITICAL CARE HISTORY & PHYSICAL Name: Yolanda Villanueva Date: 11/05/2024 Length of Stay: 0 day(s) Chief Complaint: seizures History of Present Illness: Yolanda Villanueva is a 24 y.o. year-old female with a past medical history which includes seizure disorder, anxiety, depression, former smoker, and history of gastritis who presented to an outside hospital November 04, 2024 after having recurrent seizures at home. Please note information in the HPI is obtained from medical records and medical staff as she is currently lethargic and unable to contribute to the history. No family is present currently. Records indicate she had stopped taking 1 of her antiepileptic medications for 3 days as she felt this may have been the cause of a skin rash she had experienced. She was febrile upon evaluation in the ER with associated tachycardia and tachypnea. Laboratory evaluation was remarkable for WBC 40, 5% bands, sodium 130, potassium 2.8, bicarbonate 19, BUN 27, creatinine 1.8, calcium 8.2, AST 356, ALT 122, magnesium 2.8, CK 26,000, procalcitonin 40, rapid lactate 2.9. COVID and flu swab was negative. Ethanol was negative. CT scan of the brain without contrast was negative for acute intracranial abnormalities. CT scan of the abdomen and pelvis without contrast was suggestive of potential colitis/enteritis. Chest x-ray was negative for acute cardiopulmonary process. She was initiated on empiric antimicrobial therapy for the possibility of meningitis with cefepime and vancomycin. She also received a dose of Decadron. Lumbar puncture was attempted at the outlying hospital ER however this was unsuccessful. Keppra was resumed after discussion with the Neurology team. She received 2 L normal saline bolus. She has now been transferred to [facility] for ongoing management. She is currently sleepy but easily arousable. She does answer simple questions at times with prompting and follows commands. She has been confused and slightly agitated at times pulling at her lines/tubes. She is hemodynamically stable at this time and has not required vasopressor support.. Past Medical History: Diagnosis Date Anxiety March 2013 Depression March 2013 Eczema 2009 GERD (gastroesophageal reflux disease) Seizures ([facility]) Visual impairment 2004 Past Surgical History: Procedure Laterality Date COLONOSCOPY N/A 04/10/2023 Performed by Joey Stacy MD at [facility] ESOPHAGOGASTRODUODENOSCOPY N/A 04/10/2023 Performed by Joey Stacy MD at [facility] Review of Systems - unable to obtain as she is lethargic and unable to contribute to the history at this time Medications Prior to Admission Medication Sig Dispense Refill Last Dose/Taking cariprazine (VRAYLAR) 1.5 mg capsule Take 1 capsule (1.5 mg total) by mouth in the morning. cyclobenzaprine (FLEXERIL) 10 mg tablet Take 1 tablet (10 mg total) by mouth 2 (two) times a day as needed for muscle spasms. (Patient not taking: Reported on 09/12/2024) 10 tablet 0 hydrOXYzine (VistariL) 25 mg capsule Take 1 capsule (25 mg total) by mouth 3 (three) times a day as needed for anxiety. Max 3 per day (Patient not taking: Reported on 09/12/2024) 90 capsule 0 ibuprofen (MOTRIN) 800 mg tablet Take 1 tablet (800 mg total) by mouth every 8 (eight) hours as needed for pain. (Patient not taking: Reported on 09/12/2024) 21 tablet 0 lamoTRIgine (LaMICtal) 100 mg tablet Take 100 mg in the morning and 50 mg at night for 2 weeks, after that start taking 100 mg once in the morning and once at night and continue on that dose 60 tablet 2 levETIRAcetam (KEPPRA) 750 mg tablet Take 1 tablet (750 mg total) by mouth in the morning and 1 tablet (750 mg total) before bedtime. 60 tablet 3 lidocaine (LIDODERM) 5 % Place 1 patch on the skin daily. Remove & Discard patch within 12 hours or as directed by MD (Patient not taking: Reported on 09/12/2024) 30 patch 0 PARoxetine (PAXIL) 40 mg tablet Take 1 tablet (40 mg total) by mouth in the morning. (Patient taking differently: Take 1.5 tablets (60 mg total) by mouth in the morning.) 90 tablet 2 venlafaxine XR (EFFEXOR XR) 37.5 mg 24 hr capsule Take 1 capsule (37.5 mg total) by mouth in the morning. 90 capsule 0 No Known Allergies Family History Problem Relation Age of Onset Kidney disease Father Miscarriages / Stillbirths Sister Lung cancer Maternal Grandmother Throat cancer Paternal great-grandmother Social History Socioeconomic History Marital status: Tobacco Use Smoking status: Every Day Current packs/day: 0.00 Types: Cigarettes Last attempt to quit: 2020 Years since quittin.0 Smokeless tobacco: Never Vaping Use Vaping status: Former Substance and Sexual Activity Alcohol use: Not Currently Comment: Patient just found out she was Drug use: Yes Types: Marijuana Comment: daily Sexual activity: Yes Partners: Male control/protection: Condom Social Drivers of Health Financial Resource Strain: Low Risk (09/12/2024) Overall Financial Resource Strain (CARDIA) Difficulty of Paying Living Expenses: Not hard at all Food Insecurity: Patient Unable To Answer (11/04/2024) Hunger Screening Food Insecurity - Worry: Patient unable to answer Food Insecurity - Inability: Patient unable to answer Transportation Needs: No Transportation Needs (09/12/2024) PRAPARE - Transportation Lack of Transportation (Medical): No Lack of Transportation (Non-Medical): No Interpersonal Safety: Not At Risk (09/12/2024) Humiliation, Afraid, Rape, and Kick questionnaire Fear of Current or Ex-Partner: No Emotionally Abused: No Physically Abused: No Sexually Abused: No Housing Instability: Low Risk (09/12/2024) Housing Instability Housing Instability: No Temp: [37 C (98.6 F)-38.3 C (100.9 F)] 37 C (98.6 F) Pulse: [115-151] 118 Resp: [20-40] 23 BP: (97-151)/(53-116) 136/99 SpO2: [89 %-100 %] 92 % O2 Device: None (Room air) O2 Device: None (Room air) Physical Exam Constitutional She appears well-developed and well-nourished. No distress. Vitals reviewed. HENT Head Normocephalic and atraumatic. Eyes: Conjunctivae and EOM are normal. Pupils are equal, round, and reactive to light. Neck No tracheal deviation present. Cardiovascular: Regular rhythm. No murmur heard. Pulses: intact distal pulses no JVD Sinus tachycardia no friction rub and no gallop Pulmonary/Chest: Effort normal and breath sounds normal. No respiratory distress. Abdominal: Bowel sounds are normal. She exhibits no distension. Soft. There is no guarding. Musculoskeletal: General: No edema. Normal range of motion. Neurological Sleepy but easily arousable. No focal neurologic deficits noted. Oriented to place and situation currently. Following commands with prompting. Skin: Skin is warm and dry. Rash (erythematous rash noted on bilateral upper extremities, chest, back) noted. Psychiatric: Unable to assess Ventilator Invasive Hemodynamic [place] No intake/output data recorded. Recent Results (from the past 24 hours) CBC auto differential Collection Time: 11/04/24 4:54 PM Result Value Ref Range White Blood Cells 40.2 (H) 4.0 - 11.0 X10E9/L RBC count 4.47 3.80 - 5.20 X10E12/L Hemoglobin 13.2 11.7 - 15.5 g/dL Hematocrit 40.2 35 - 47 % MCV 90 80 - 100 fL MCH 29.5 27 - 34 pg MCHC 32.9 32 - 36 g/dL RDW 13.6 11.5 - 15.0 % Platelets 344 150 - 450 X10E9/L MPV 7.6 7 - 12 fL Band 5.0 % Seg neutrophil 84.0 % Lymphocyte 2.0 % Monocytes 9.0 % Nucleated RBC 1.0 0.0 - 1.0 /100 WBC Neutrophils Absolute (M) 35.8 (H) 1.5 - 6.6 X10E9/L Lymphocytes Absolute 0.8 (L) 1.0 - 3.5 X10E9/L Monocytes Absolute 3.6 (H) 0 - 0.9 X10E9/L Polychromasia 1+ (A) NONE^NONE Comprehensive metabolic panel Collection Time: 11/04/24 4:54 PM Result Value Ref Range Sodium 130 (L) 134 - 146 mmol/L Potassium, Bld 2.8 (L) 3.5 - 5.0 mmol/L Chloride 99 98 - 109 mmol/L CO2 19 (L) 22 - 32 mmol/L Anion gap 12 5 - 15 mmol/L BUN 27 (H) 5 - 23 mg/dL Creatinine 1.88 (H) 0.40 - 1.00 mg/dL Glucose 88 65 - 99 mg/dL Calcium 8.2 (L) 8.5 - 10.5 mg/dL Total Protein 8.2 (H) 6.0 - 8.0 g/dL Albumin 4.5 3.2 - 5.3 g/dL Alkaline Phosphatase 96 39 - 130 U/L AST 356 (H) 0 - 41 U/L ALT 122 (H) 0 - 31 U/L Total bilirubin 0.6 0.3 - 1.2 mg/dL eGFR (CKD-EPI)non-race dependent 38 (L) >59 ml/min/1.73sq.m Magnesium Collection Time: 11/04/24 4:54 PM Result Value Ref Range Magnesium 2.8 (H) 1.8 - 2.6 mg/dL C-reactive protein Collection Time: 11/04/24 4:54 PM Result Value Ref Range CRP 1.2 (H) 0.000 - 0.744 mg/dL Procalcitonin Collection Time: 11/04/24 4:54 PM Result Value Ref Range Procalcitonin 40.05 (H) <0.05 ng/mL Ethanol Collection Time: 11/04/24 4:54 PM Result Value Ref Range Ethanol Lvl <0.01 0.00 - 0.08 g/dL CK Total Collection Time: 11/04/24 4:54 PM Result Value Ref Range Total CK 26,584 (H) 24 - 170 U/L Lactate w/ Reflex Collection Time: 11/04/24 5:15 PM Result Value Ref Range Lactate w/ Reflex 2.9 (H) 0.4 - 2.0 mmol/L SARS/FLU A+B/RSV by NAAT/Molecular (M4RT Collection Tube) Collection Time: 11/04/24 7:13 PM Result Value Ref Range FLU A PCR Negative Negative^Negative FLU B PCR Negative Negative^Negative RSV by PCR Negative Negative^Negative SARS CoV 2 BY PCR Not Detected Not Detected^Not Detected Lactate Collection Time: 11/04/24 9:19 PM Result Value Ref Range Lactate 1.2 0.4 - 2.0 mmol/L POCT Nursing Urine Macroscopic UA Collection Time: 11/04/24 11:08 PM Result Value Ref Range Specific gravity KRISTA 1.010 1.003 - 1.035 Leukocyte esterase KRISTA Trace (A) Negative^Negative Nitrite KRISTA Negative Negative^Negative Ph 5.5 5.0 - 8.5 Protein KRISTA 100 (A) Negative^Negative mg/dL Urine glucose KRISTA Negative Negative^Negative mg/dL Ketones KRISTA Negative Negative^Negative mg/dL Urobilinogen KRISTA 0.2 <1.1 eu/dL Bilirubin KRISTA Negative Negative^Negative Hemoglobin KRISTA Large (A) Negative^Negative POCT , urine Collection Time: 11/04/24 11:10 PM Result Value Ref Range Nursing urine Negative Negative^Negative Bedside Glucose *Place/Obtain serum glucose if >500(>600 MRH) per glucometer. Collection Time: 11/05/24 1:19 AM Result Value Ref Range Bedside glucose 105 (H) 65 - 99 mg/dL Microbiology Results Procedure Component Value Units Date/Time Urine culture [[id number]] Resulted: 11/04/242304 Specimen: Urine Updated: 11/04/242305 SARS/FLU A+B/RSV by NAAT/Molecular (M4RT Collection Tube) [[id number]] Collected: 11/04/241912 Specimen: Nasopharynx Updated: 11/04/242005 FLU A PCR Negative FLU B PCR Negative RSV by PCR Negative SARS CoV 2 BY PCR Not Detected Blood culture [[id number]] Collected: 11/04/241758 Specimen: Blood, Peripheral Draw Updated: 11/04/241828 Blood culture [[id number]] Collected: 11/04/241758 Specimen: Blood, Peripheral Draw Updated: 11/04/241828 ASSESSMENT: Severe sepsis with multiorgan dysfunction noted. Significant leukocytosis and elevated procalcitonin noted. Source not entirely clear at this time. Note concern for potential EARTH MOVER infection/meningitis. Chest x-ray without acute process. UA does not appear grossly infected. CT abdomen and pelvis with potential colitis. Altered mental status, possibly toxic/metabolic in etiology vs seizure related / post ictal. Lumbar puncture attempted unsuccessfully at the outside hospital. Will need further workup for potential EARTH MOVER infection. Seizure disorder with breakthrough seizures and recent medication noncompliance. Acute kidney injury possibly due to prerenal etiology/low perfusion vs myoglobinuric renal failure. Remains nonoliguric. No evidence of obstruction on CT imaging. Rhabdomyolysis, nontraumatic. Possibly due to recent seizure activity. Lactic acidosis, resolving Hyperchloremic metabolic acidosis Hypokalemia Transaminitis History of anxiety/depression Former smoker PLAN: Admit to medical ICU Supplemental oxygen via nasal cannula for SpO2 greater than 92% if needed. Currently on room air. Continue empiric meningitis coverage with cefepime and vancomycin. Will add Flagyl for intra-abdominal coverage as well. Continue Decadron 10 mg IV q.6 hours and monitor bedside glucose closely Monreal culture, blood cultures x2 and urine culture pending. Check respiratory pathogen panel, MRSA PCR, sputum culture, urine antigens. LR at 100 cc/hour Consult neurology due to altered mental status, seizures, concern for meningitis. Will need an LP. Continue Keppra 1000 mg IV q.12 hours Daily labs ordered. Check lactate, procalcitonin, CK/myoglobin, TSH GI prophylaxis: Not indicated DVT prophylaxis: EPCs. We will hold on chemical prophylaxis at this time pending potential LP. Nutrition: NPO for now Restraints for safety if needed to prevent dislodging tubes/lines Replace lytes per ICU protocol if needed Disposition: ICU Plan of care reviewed and patient evaluated with VIJAYA Elliott Critical Care Time: [] This patient, with a critical illness, requires constant monitoring and titration of care by a Critical Care Animation Producer. Failure to do so may result in further organ system failure, imminent deterioration, or . VIJAYA Hung 11/05/24 0209 Cosigned by Esau Vincent MD at 11/05/2024 2:33 AM EST documented in this encounter [facility] 11-02-2024 Miscellaneous Notes Medication Name:levETIRAcetam (KEPPRA) 750 mg tablet Frequency/Dose: 750mg twice daily Side Effects: Patient stated that they have a skin rash on arms and torso and face When did the side effects begin:1 1/2 weeks ago Last dose: 11/02/24 AM dose Received call from: Patient Callback number:[phone] I believe the patient is also taking Lamictal. I believe she was instructed to increase the dose of Lamictal after being discharged from the hospital in September 2024. I would recommend that she stop taking the Lamictal right away, as it can cause a severe dermatological condition called Hills-Gab syndrome hospitalization. please ask if she is having chest pain, wheezing, shortness of breath or lip swelling, difficulty swallowing, slurred speech. I think the safest thing to do at this time would be to go to the emergency room for emergent evaluation rash has spread to the extremities, torso and face. I would recommend that she continue the Keppra for now. Let me know about further concerns. Thanks Called and spoke to patient and let her know recommendations/ information from Dr. Bragg about the lamictal and her rash. She stated that she had been taking the Lamictal for a while now and just recently increased the dose to twice a day. Director Of Food And Beverage Services informed patient would send message to Dr. Bragg about the Lamictal and see what he says. Did also inform her that he was out of the office but was answering things. She voiced understanding. Also told her about going to the ED to have the rash be evaluated and make sure it is not [place]-Gab syndrome. She voiced understanding. Yes that is correct, I want her to stop taking the Lamictal and just continue the Keppra for seizure prophylaxis. The risk of dermatological complications such as Hills-Gab syndrom is a dose dependent phenomenon associated with lamotrigine/Lamictal usage. Typically the rash develops as the dose of Lamictal is increased. Zabrina STUBBS RN [facility] [phone] (ER direct line) has requested a call back. Caller stated that patient is currently at ER and department has a few questions to ask Dr. Bragg. Provider's pager does not seem to be working. Tried to call Zabrina back to see if there were any specific questions. Spoke to Debby and she stated that Zabrina wasn't in yet and the patient was probably gone already as it was an emergency room . Attempted to call patient and got VM. Left message for patient to call office back. documented in this encounter [employer] 11-02-2024 Telephone encounter Note Medication Name:levETIRAcetam (KEPPRA) 750 mg tablet Frequency/Dose: 750mg twice daily Side Effects: Patient stated that they have a skin rash on arms and torso and face When did the side effects begin:1 1/2 weeks ago Last dose: 11/02/24 AM dose Received call from: Patient Callback number:[phone] [employer] 11-02-2024 Telephone encounter Note I believe the patient is also taking Lamictal. I believe she was instructed to increase the dose of Lamictal after being discharged from the hospital in September 2024. I would recommend that she stop taking the Lamictal right away, as it can cause a severe dermatological condition called Hills-Gab syndrome hospitalization. please ask if she is having chest pain, wheezing, shortness of breath or lip swelling, difficulty swallowing, slurred speech. I think the safest thing to do at this time would be to go to the emergency room for emergent evaluation rash has spread to the extremities, torso and face. I would recommend that she continue the Keppra for now. Let me know about further concerns. Thanks [employer] Work Phone: 11-02-2024 Telephone encounter Note Called and spoke to patient and let her know recommendations/ information from Dr. Bragg about the lamictal and her rash. She stated that she had been taking the Lamictal for a while now and just recently increased the dose to twice a day. Director Of Food And Beverage Services informed patient would send message to Dr. Bragg about the Lamictal and see what he says. Did also inform her that he was out of the office but was answering things. She voiced understanding. Also told her about going to the ED to have the rash be evaluated and make sure it is not Israel-Gab syndrome. She voiced understanding. [facility] [employer] 11-02-2024 Telephone encounter Note Yes that is correct, I want her to stop taking the Lamictal and just continue the Keppra for seizure prophylaxis. The risk of dermatological complications such as Hills-Gab syndrom is a dose dependent phenomenon associated with lamotrigine/Lamictal usage. Typically the rash develops as the dose of Lamictal is increased. [facility] [employer] 11-02-2024 Telephone encounter Note Zabrina STUBBS RN [facility] [phone] (ER direct line) has requested a call back. Caller stated that patient is currently at ER and department has a few questions to ask Dr. Bragg. Provider's pager does not seem to be working. [facility] [employer] 11-02-2024 Telephone encounter Note Tried to call Zabrina back to see if there were any specific questions. Spoke to Debby and she stated that Zabrina wasn't in yet and the patient was probably gone already as it was an emergency room . Attempted to call patient and got VM. Left message for patient to call office back. [facility] 07-12-2024 History of Present illness Narrative Images from the original note were not included. [address] [place] [place] [id number] Patient: Yolanda Villanueva Date of : 2000 Encounter Date: 07/12/2024 Patient Care Team: Ottoniel Arias MD as PCP - General (Internal Medicine) Megha Bragg MD as Referring Physician (Neurology) History of Present Illness: The patient is a 24 y.o. female, an established, and is here for evaluation and management of seizure like activity. Patient is currently accompanied to the clinic by . Was last seen in clinic on 01/29/2024. Summary of Condition: The patient is a 24 years old right-handed female with past medical history of anxiety, depression, GERD, eczema, who is following up in the neurology clinic for evaluation of seizure-like activity. Patient reports onset of paroxysms roughly six months ago. She has been witnessed to have multiple seizure-like episodes, which have all occurred during sleep. The episodes have been witnessed by the patient's , who is usually woken up from the shaking. Patient reports being under immense amount of stress around the time when he started having these symptoms. Per patient, typically when under duress/stress, the patient would have paroxysms of what is described as episodes of staring into the distance , as if in deep thought. Paroxysms were not associated with automatisms, warning signs, auras, focal motor weakness, sensory disturbances, convulsions, rhythmic shaking, headaches, nausea, vomiting, visual impairment, falls, behavioral disturbances, agitation, hallucinations, Urinary incontinence or tongue bites. Typically the symptoms are aborted when the patient is distracted by someone else. He reports recalling a paroxysms which lasted a few hours as there was no one around him to make him snap out of it . Currently he reports having these episodes every other day. Patient denies any post event confusion, disorientation, lethargy, fatigue, incontinence. Patient denies previous history of seizures, history of TBI, history of meningitis or encephalitis, history of learning disability, febrile seizures. 1 of his dad's brother was recently diagnosed with seizures, however at an advanced age. 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 He is currently following up with a psychiatrist and counselor. Interestingly, he mentions at most with the paroxysms usually occur when the patient is transitioning from 1 personality to the other . Usually transitions from 1 personality to another in times of stress/duress. Has not had any neuroimaging in the past. Denies having EEGs in the past. Is currently independent with ADLs and IADLs. Ambulating without any assistive devices. Interval history 07/12/2024: - MRI brain with without contrast on 03/03/2024 was a normal study. - routine EEG on 02/23/2024 was a normal study. - was in the emergency room on 04/16/2024 with a suicide attempt. Also history of previous suicidal attempts. - has continued to have nocturnal convulsions. Spouse shows me a video recording of a recent generalized convulsion, in which the patient is lying down on her back, with her upper extremities contorted inside, and having at times rhythmic and at others nonrhythmic proximal twitching of the upper extremity, with both upper extremity bumping into each other. At the same time it seems she was having lower facial twitching however only the lips seemed to be involved, almost pouting, with alternative twitching noticed of both angles of the mouth, with variable rhythmicity. There were no abnormal movements of the eyes appreciated, her eyes being semi open throughout the episode. The convulsions lasted out 1.5 minutes at the end of fish the twitches seemed to slow down and eventually stopped. At that time the patient appeared to be resting on her back, headed listless expression on her face with her eyes semi open. She did not respond to any verbal stimuli. The patient reported that she was in that state for another 30 minutes after regaining consciousness. Patient has no recollection of the event. Episode was not associated with incontinence, however the patient reports she did bite her tongue a few times. Last nocturnal convulsion was a few days ago. - the patient is currently seeing a psychiatrist and counselor, however has not informed them that she is having seizures. She is currently seeing them for poorly controlled anxiety and mood disorders. Allergies: Patient has no known allergies. Review of Relevant Patient Questionnaires: HIT 6: No data to display PHQ-9: 11/24/2023 7:34 AM 10/02/2022 8:50 AM PM AMB PHQ 9 Little interest or pleasure in doing things 0 0 Feeling down, depressed, or hopeless 0 0 Trouble falling or staying asleep, or sleeping too much 1 Feeling tired or having little energy 2 Poor appetite or overeating 0 Feeling bad about yourself - or that you are a failure or have let yourself or your family down 0 Trouble concentrating on things, such as reading the newspaper or watching television 2 Moving or speaking so slowly that other people could have noticed. Or the opposite - being so fidgety or restless that you have been moving around a lot more than usual 1 Thoughts that you would be better off , or of hurting yourself in some way 0 Total Score 6 0 If you checked off any problems, how difficult have these problems made it for you to do your work, take care of things at home, or get along with other people? Somewhat difficult PHQ-15: No data to display SETH-7: No data to display PTSD: No data to display Bucks: No data to display JEVON-10: No data to display Past Medical, Family, Surgical, and Social History Update: The following portions of the patient's history were reviewed and updated as appropriate: allergies, current medications, past family history, past medical history, past social history, past surgical history and problem list. Past Medical History: Diagnosis Date Anxiety March 2013 Depression March 2013 Eczema 2009 GERD (gastroesophageal reflux disease) Seizures ([facility]) Visual impairment 2004 Family History Problem Relation Age of Onset Kidney disease Father Miscarriages / Stillbirths Sister Lung cancer Maternal Grandmother Throat cancer Paternal great-grandmother Past Surgical History: Procedure Laterality Date COLONOSCOPY N/A 04/10/2023 Performed by Joey Stacy MD at [facility] ESOPHAGOGASTRODUODENOSCOPY N/A 04/10/2023 Performed by Joey Stacy MD at [facility] Current Outpatient Medications Medication Sig Dispense Refill lamoTRIgine (LaMICtal) 100 mg tablet Take 110 mg by mouth. PARoxetine (PAXIL) 40 mg tablet Take 1 tablet (40 mg total) by mouth in the morning. (Patient taking differently: Take 1.5 tablets (60 mg total) by mouth in the morning.) 90 tablet 2 venlafaxine XR (EFFEXOR XR) 37.5 mg 24 hr capsule Take 1 capsule (37.5 mg total) by mouth in the morning. 90 capsule 0 cyclobenzaprine (FLEXERIL) 10 mg tablet Take 1 tablet (10 mg total) by mouth 2 (two) times a day as needed for muscle spasms. (Patient not taking: Reported on 07/12/2024) 10 tablet 0 hydrOXYzine (VistariL) 25 mg capsule Take 1 capsule (25 mg total) by mouth 3 (three) times a day as needed for anxiety. Max 3 per day (Patient not taking: Reported on 07/12/2024) 90 capsule 0 ibuprofen (MOTRIN) 800 mg tablet Take 1 tablet (800 mg total) by mouth every 8 (eight) hours as needed for pain. (Patient not taking: Reported on 07/12/2024) 21 tablet 0 lidocaine (LIDODERM) 5 % Place 1 patch on the skin daily. Remove & Discard patch within 12 hours or as directed by MD (Patient not taking: Reported on 07/12/2024) 30 patch 0 No current facility-administered medications for this visit. (All medications reviewed and updated by provider since last office visit or hospitalization) Tobacco History: Social History Tobacco Use Smoking Status Every Day Current packs/day: 0.00 Types: Cigarettes Last attempt to quit: 2020 Years since quittin.7 Smokeless Tobacco Never (If patient a smoker, smoking cessation counseling offered) Social History: Social History Substance and Sexual Activity Alcohol Use Not Currently Comment: Patient just found out she was Review of Systems: 14 systems were reviewed and negative except those mentioned in HPI . Physical Exam: Vitals: Vitals: 07/12/24 1550 BP: 112/70 Weight: 81.6 kg (180 lb) Height: 162.6 cm (5' 4 ) Patient consulted for exercise: encouragement to exercise. Neurological Physical Exam: Neurologic: Mental status: Alert; oriented to time, place, person and situation. No aphasia. No dysarthria. Normal recent and remote memory. Normal attention span and concentration. Able to provide good history. Appears anxious, mild psychomotor agitation Cranial nerves: II: pupils equal and reactive to light; visual nguyen full; III, IV, : extraocular movements intact; no ptosis. No nystagmus. V: facial sensation equal to touch in all 3 divisions bilaterally. No weakness of muscles of mastication. VII: face symmetric with normal eye closure and smile. VIII: hearing normal to rubbing fingers IX, X: palate elevates symmetrically; phonation normal. XI: Shoulder elevation symmetric and 5/5. Sternocleidomastoid muscle strength symmetric. XII: tongue midline with good movements. Motor: Normal bulk. No fasciculations. Normal muscle tone. Motor strength 5/5 in bilateral upper and bilateral lower extremities. No bradykinesia. No tremors. No other abnormal movements. Reflexes: DTRs 2/4 and symmetric bilaterally. No ankle clonus was noted. Sensory examination: Sensation to light touch is bilaterally symmetric and normal. Coordination: Rmnhdr-pdoq-pcuvnv and tkdl-uivo-cfal tests are normal. No dysdiadochokinesia on rapid alternating movements. Gait and Station: Patient walks with narrow base and normal stride. Romberg's test negative Data Reviewed: Lab Results Component Value Date CREATININE 0.78 04/16/2024 BUN 8 04/16/2024 K 3.8 04/16/2024 CL 99 04/16/2024 CO2 25 04/16/2024 Lab Results Component Value Date WBC 10.9 04/16/2024 HGB 14.0 04/16/2024 HCT 41.3 04/16/2024 MCV 88 04/16/2024 PLT 346 04/16/2024 Lab Results Component Value Date ALT 18 04/16/2024 AST 21 04/16/2024 ALKPHOS 72 04/16/2024 No results found for: INR , PROTIME No results found for: PTT Diagnostic Study Results: CT No results found. CTA No results found. MRI refer to it. Angio No results found. Assessment and Plan: Yolanda was seen today for follow-up. 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 Patient reports onset of paroxysms roughly six months ago. She has been witnessed to have multiple seizure-like episodes, which have all occurred during sleep. The episodes have been witnessed by the patient's , who is usually woken up from the shaking. Patient reports being under immense amount of stress around the time when he started having these symptoms. Per patient, typically when under duress/stress, the patient would have paroxysms of what is described as episodes of staring into the distance , as if in deep thought. Paroxysms were not associated with automatisms, warning signs, auras, focal motor weakness, sensory disturbances, convulsions, rhythmic shaking, headaches, nausea, vomiting, visual impairment, falls, behavioral disturbances, agitation, hallucinations, Urinary incontinence or tongue bites. Typically the symptoms are aborted when the patient is distracted by someone else. He reports recalling a paroxysms which lasted a few hours as there was no one around him to make him snap out of it . Currently he reports having these episodes every other day. Patient denies any post event confusion, disorientation, lethargy, fatigue, incontinence. Patient denies previous history of seizures, history of TBI, history of meningitis or encephalitis, history of learning disability, febrile seizures. 1 of his dad's brother was recently diagnosed with seizures, however at an advanced age. 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 He is currently following up with a psychiatrist and counselor. Interestingly, he mentions at most with the paroxysms usually occur when the patient is transitioning from 1 personality to the other . Usually transitions from 1 personality to another in times of stress/duress. Has not had any neuroimaging in the past. Denies having EEGs in the past. Is currently independent with ADLs and IADLs. Ambulating without any assistive devices. Interval history 07/12/2024: - MRI brain with without contrast on 03/03/2024 was a normal study. - routine EEG on 02/23/2024 was a normal study. - was in the emergency room on 04/16/2024 with a suicide attempt. Also history of previous suicidal attempts. - has continued to have nocturnal convulsions. Spouse shows me a video recording of a recent generalized convulsion, in which the patient is lying down on her back, with her upper extremities contorted inside, and having at times rhythmic and at others nonrhythmic proximal twitching of the upper extremity, with both upper extremity bumping into each other. At the same time it seems she was having lower facial twitching however only the lips seemed to be involved, almost pouting, with alternative twitching noticed of both angles of the mouth, with variable rhythmicity. There were no abnormal movements of the eyes appreciated, her eyes being semi open throughout the episode. The convulsions lasted out 1.5 minutes at the end of fish the twitches seemed to slow down and eventually stopped. At that time the patient appeared to be resting on her back, headed listless expression on her face with her eyes semi open. She did not respond to any verbal stimuli. The patient reported that she was in that state for another 30 minutes after regaining consciousness. Patient has no recollection of the event. Episode was not associated with incontinence, however the patient reports she did bite her tongue a few times. Last nocturnal convulsion was a few days ago. - the patient is currently seeing a psychiatrist and counselor, however has not informed them that she is having seizures. She is currently seeing them for poorly controlled anxiety and mood disorders. Current neurological examination is nonfocal. Clinical impression: Nocturnal generalized convulsions, based on semiology I am leaning towards nonepileptic etiology however the possibility of underlying epileptic disorder can not be completely ruled out. Recently performed routine EEG was unremarkable. Patient continues to have frequent nocturnal convulsions, and after discussing pros and cons we will order long-term EEG monitoring for further classification of seizure-like activity. All concerns and questions from the patient and her spouse have been addressed. Continue seizure precautions, no driving until seizure-free for 6 months and then needs to be cleared by a physician. Has been advised to talk with her psychiatrist and counselor about the possibility of her seizures being nonepileptic in stress induced. Continue supportive care. Regular follow-up with PCP. In 2-3 months. Problem List Digestive GERD (gastroesophageal reflux disease) Nervous and Auditory Seizure disorder (CMS-HCC) Relevant Medications lamoTRIgine (LaMICtal) 100 mg tablet Other Relevant Orders Mcc Monitoring for Epilepsy / LTME 5 Day Musculoskeletal and Integument Eczema Other Anxiety Depression Follow-up: 2-3 months Megha Bragg MD Vascular Neurologist [facility] Neurology ([facility]) I have personally participated in the care of this patient. I have reviewed all pertinent clinical information, including history, physical exam, investigation results and plan. 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 Important Notice: This note was created with the assistance of a speech recognition program. While intending to generate a timely document that accurately reflects the content of the encounter, no guarantee can be provided that every grammatical or spelling mistake has been or will be identified or corrected. Thank you for your understanding. documented in this encounter [facility] 07-01-2024 History of Present illness Narrative Pt currently in [facility]. Call requesting pt medical records received. Obtained signed copy of release of medical records form. Requested records faxed to [facility] ED. documented in this encounter [facility] 04-22-2024 Discharge summary Note Date/Time April 22, 2024 6:57am [facility] [address] [place] [address] Discharge Summary Signed Patient: Yolanda Villanueva MR#: [id number] : 2000 Acct:[id number] Age/Sex: 24 / F Adm Date: 4 Loc: Room: [address] [place] [address]: Obie Harley MD Copies to: MD Obie Oleary MD Muhamid Asif, MD~ Providers Date of Discharge: 04/22/24 Discharging Provider: Donavon Montalvo Primary Care Provider: Ottoniel Arias Discharge Diagnosis (1) Anxiety: (2) Depression: Final Diagnosis Final Discharge Diagnosis: MDD Impulse control disorder Summary Hospital Course Hospital course: Ms. Villanueva is a 24 year old female who presents for inpatient treatment due to depression and suicidal ideation. Reportedly, patient presented to the ER in [place] after he drove her there. She has [...] her tried to drive her to the [facility]. When she realized he was taking her to the hospital, she jumped out of the car and jumpedinto a nearby pond since her can't swim. Her qxquwp-rg-poo got a kayak and got her out [...] self or stop treatment, but to call [facility], 911 or come to the nearest emergency [...] Instructions: Important Contact Information You can call [facility] Inpatient [facility] at [phone] any time day or night if you have emergent questions or question regarding discharge instructions. If at any time you are feeling an increase inyour psychiatric symptoms, call your physician or behavioral healthcare provider. If any time you have thoughts of harming yourself or others contact one of the following: Call (available 27/04) Crisis Text Line (available 27/04) text 4HOPE to [phone] [facility] Hope Line (available 8 a.m. Midnight) call [phone] ([phone]) Instructions: Know your Meds Prescriptions: New venlafaxine [...] 24hr 37.5 mg PO DAILY Follow Up: [facility] [Outside] Ottoniel Arias MD [Primary Care Provider] - Exam Physical Exam Vital Signs: Temp Pulse Resp BP Pulse Ox O2 Del Method 98.6 F 87 16 136/85 98 Room Air 04/21/24 19:30 04/21/24 19:30 04/21/24 19:30 04/21/24 19:30 04/21/24 19:30 04/21/24 19:30 Documented By: Donavon Montalvo MD 4 [id number] Signed By: <Electronically signed by Donavon Montalvo MD> 04/22/24 0705 [facility] Work Phone: 1(411) 105-216707-18-2024 Progress note Author Donavon rehman [facility] April 21, 2024 7:17am Note Date/Time April 21, 2024 7:17 am [facility] [address] [place] [address] Psychiatry Progress Note Signed Patient: Yolanda Villanueva MR#: [id number] : 2000 Acct:[id number] Age/Sex: 24 / F Adm Date: 4 Loc: Room: 4R3673-6 Type : ADM IN Attending Dr: Obie [...] unit milieu. She has been working with foster care case manager on her aftercare she agreed to continue [...] signed by Donavon Montalvo MD> 04/21/24 0717 [facility] Work Phone: 1(139) 103-420007-17-2024 Progress note Author Donavon rehman [facility] April 20, 2024 8:25am Note Date/Time April 20, 2024 8:24 am [facility] [address] [place] [address] Psychiatry Progress Note Signed Patient: Yolanda Villanueva MR#: [id number] : 2000 Acct:[id number] Age/Sex: 24 / F Adm Date: 4 Loc: Room: [address] [place] [address] Type : ADM IN Attending Dr: Obie [...] <Electronically signed by Donavon Montalvo MD> 04/20/24 0825 [facility] Work Phone: 1(130) 277-925407-16-2024 Progress note Author Donavon rehman [facility] April 19, 2024 12:03pm Note Date/Time April 19, 2024 10:2 4am [facility] [address] [place] [address] Psychiatry Progress Note Signed Patient: Yolanda Villanueva MR#: [id number] : 2000 Acct:[id number] Age/Sex: 24 / F Adm Date: 4 Loc: Room: [address] [place] [address] Type : ADM IN Attending Dr: Obie [...] 04/19/24 1018 Signed By: <Electronically signed by DO SANTOSH Bush> 04/19/24 1024 <Electronically signed by Donavon Montalvo MD> 04/19/24 1203 [facility] Work Phone: 1(606) 317-544707-15-2024 History and physical note Author Donavon rehman [facility] April 18, 2024 11:38am Note Date/Time April 18, 2024 10:3 5am [facility] [address] [place] [address] Psychiatry H&P Signed Patient: Yolanda Villanueva MR#: [id number] : 2000 Acct:[id number] Age/Sex: 24 / F Adm Date: 4 Loc: Room: [address] [place] [address] Type: ADM IN Attending Dr: Obie Harley MD Copies to: MD Obie Oleary MD Josilyn M Clark, DO, RES Ottoniel Arias MD~ Date of Service: 04/18/2024 HPI History of Present Illness History of present illness: Ms. Villanueva is a 24 year old female who presents for inpatient treatment due to depression and suicidal ideation. Reportedly, patient presented to the ER in [place] after he drove her there. She has [...] her tried to drive her to the [place] ER. When she realized he was taking her to the hospital, she jumped out of the car and jumpedinto a nearby pond since her can't swim. Her jkpsbq-vd-goh got a kayak and got her out [...] HI and [facility] Insight: Fair Judgment: Fair [facility] Medical History (Updated 04/18/24 @ 10:34 by [...] was provided. Documented By: Becca Bush DO, RES 04/18/24 0703 Signed By: <Electronically signed by RES Becca Bush> 04/18/24 1035 <Electronically signed by Donavon Montalvo MD> 04/18/24 1137 [facility] Work Phone: 1(706) 213-970504-26-2024 History of Present illness Narrative* Megha Brgag MD - 01/29/2024 1:30 PM EDT Images from the original note were not included. [address] [place] [address] Patient: Yolanda Villanueva Date of : 2000 Encounter Date: 01/29/2024 Patient Care Team: Ottoniel Arias MD as PCP - General (Internal Medicine) History of Present Illness: The patient is a 23 y.o. female, a new patient, and is here for evaluation and management of seizure like activity. Patient is currently accompanied to the clinic by . Summary of Condition: The patient is a 23 years old right-handed female with past medical history of anxiety, depression, GERD, eczema, who presents to the neurology clinic today for evaluation of seizure-like activity. Patient reports onset of paroxysms roughly 4-5 weeks ago. She has been witnessed to have multiple seizure-like episodes, which have all occurred during sleep. The episodes have been witnessed by the patient's , who is usually woken up from the shaking. Patient reports being under immense amount of stress around the time when he started having these symptoms. Per patient, typically when under duress/stress, the patient would have paroxysms of what is described as episodes of staring into the distance , as if in deep thought. Paroxysms were not associated with automatisms, warning signs, auras, focal motor weakness, sensory disturbances, convulsions, rhythmic shaking, headaches, nausea, vomiting, visual impairment, falls, behavioral disturbances, agitation, hallucinations, Urinary incontinence or tongue bites. Typically the symptoms are aborted when the patient is distracted by someone else. He reports recalling a paroxysms which lasted afew hours as there was no one around him to make him snap out of it . Currently he reports havingthese episodes every other day. Patient denies any post event confusion, disorientation, lethargy, fatigue, incontinence. Patient denies previous history of seizures, history of TBI, history of meningitis or encephalitis, history of learning disability, febrile seizures. 1 of his dad's brother was recently diagnosed with seizures, however at an advanced age. 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 He is currently following up with a psychiatrist and dhruv parrish. Interestingly, he mentions at most with the paroxysms usually occur when the patient is transitioning from 1 personality to the other . Usually transitions from 1 personality to another intimes of stress/duress. Has not had any neuroimaging in the past. Denies having EEGs in the past. Is currently independent with ADLs and IADLs. Ambulating without any assistive devices. Allergies: Patient has no known allergies. Review of Relevant Patient Questionnaires: HIT 6: No data to display PHQ-9: 11/24/2023 7:34 AM 10/02/2022 8:50 AM PM AMB PHQ 9 Little interest or pleasure in doing things 0 0 Feeling down, depressed, or hopeless 0 0 Trouble falling or staying asleep, or sleeping too much 1 Feeling tired or having little energy 2 Poor appetite or overeating 0 Feeling bad about yourself - or that you are a failure or have let yourself or your family down 0 Trouble concentrating on things, such as reading the newspaper or watching television 2 Moving or speaking so slowly that other people could have noticed. Or the opposite - being so fidgety or restless that you have been moving around a lot more than usual 1 Thoughts that you would be better off , or of hurting yourself in some way 0 Total Score 6 0 If you checked off any problems, how difficult have these problems made it for you to do your work,take care of things at home, or get along with other people? Somewhat difficult PHQ-15: No data to display SETH-7: No data to display PTSD: No data to display Bucks: No data to display JEVON-10: No data to display Past Medical, Family, Surgical, and Social History Update: The following portions of the patient's history were reviewed and updated as appropriate: allergies, current medications, past family history, past medical history, past social history, past surgicalhistory and problem list. Past Medical History: Diagnosis Date Anxiety March 2013 Depression March 2013 Eczema 2009 GERD (gastroesophageal reflux disease) Seizures ([facility]) Visual impairment 2004 Family History Problem Relation Age of Onset Kidney disease Father Miscarriages / Stillbirths Sister Lung cancer Maternal Grandmother Throat cancer Paternal great-grandmother Past Surgical History: Procedure Laterality Date COLONOSCOPY N/A 04/10/2023 Performed by Joey Stacy MD at [facility] ESOPHAGOGASTRODUODENOSCOPY N/A 04/10/2023 Performed by Joey Stacy MD at [facility] Current Outpatient Medications Medication Sig Dispense Refill cyclobenzaprine (FLEXERIL) 10 mg tablet Take 1 tablet (10 mg total) by mouth 2 (two) times a day asneeded for muscle spasms. 10 tablet 0 hydrOXYzine (VistariL) 25 mg capsule Take 1 capsule (25 mg total) by mouth 3 (three) times a day asneeded for anxiety. Max 3 per day 90 capsule 0 ibuprofen (MOTRIN) 800 mg tablet Take 1 tablet (800 mg total) by mouth every 8 (eight) hours as needed for pain. 21 tablet 0 lidocaine (LIDODERM) 5 % Place 1 patch on the skin daily. Remove & Discard patch within 12 hours or as directed by MD 30 patch 0 methylPREDNISolone (MEDROL, PENELOPE,) 4 mg tablet follow package directions 21 tablet 0 PARoxetine (PAXIL) 40 mg tablet Take 1 tablet (40 mg total) by mouth in the morning. 90 tablet 2 tiZANidine (ZANAFLEX) 4 mg tablet Use 1 tab each night scheduled. If still having muscle cramps spasm can have 1 tab in day as needed. 60 tablet 0 venlafaxine XR (EFFEXOR XR) 37.5 mg 24 hr capsule Take 1 capsule (37.5 mg total) by mouth in the morning. 90 capsule 0 No current facility-administered medications for this visit. (All medications reviewed and updated by provider since last office visit or hospitalization) Tobacco History: Social History Tobacco Use Smoking Status Former Current packs/day: 0.00 Types: Cigarettes Quit date: 2020 Years since quittin.3 Smokeless Tobacco Never (If patient a smoker, smoking cessation counseling offered) Social History: Social History Substance and Sexual Activity Alcohol Use Not Currently Comment: Patient just found out she was Review of Systems: 14 systems were reviewed and negative except those mentioned in HPI . Physical Exam: Vitals: Vitals: 01/29/24 1323 BP: 138/73 Pulse: 106 Weight: 74.8 kg (165 lb) Height: 162.6 cm (5' 4 ) Patient consulted for exercise: encouragement to exercise. Neurological Physical Exam: Neurologic: Mental status: Alert; oriented to time, place, person and situation. No aphasia. No dysarthria. Normal recent and remote memory. Normal attention span and concentration. Able to provide good history. Cranial nerves: II: pupils equal and reactive to light; visual nguyen full; III, IV, : extraocular movements intact; no ptosis. No nystagmus. V: facial sensation equal to touch in all 3 divisions bilaterally. No weakness of muscles of mastication. VII: face symmetric with normal eye closure and smile. VIII: hearing normal to rubbing fingers IX, X: palate elevates symmetrically; phonation normal. XI: Shoulder elevation symmetric and 5/5. Sternocleidomastoid muscle strength symmetric. XII: tongue midline with good movements. Motor: Normal bulk. No fasciculations. Normal muscle tone. Motor strength 5/5 in bilateral upper and bilateral lower extremities. No bradykinesia. No tremors. No other abnormal movements. Reflexes: DTRs 2/4 and symmetric bilaterally. No ankle clonus was noted. Sensory examination: Sensation to light touch is bilaterally symmetric and normal. Coordination: Nvsnkb-tvsb-prliix and keul-pohy-zule tests are normal. No dysdiadochokinesia on rapid alternating movements. Gait and Station: Patient walks with narrow base and normal stride. Romberg's test negative Data Reviewed: Lab Results Component Value Date CREATININE 0.60 01/11/2024 BUN 13 01/11/2024 K 4.2 01/11/2024 CL 101 01/11/2024 CO2 25 01/11/2024 Lab Results Component Value Date WBC 10.0 01/11/2024 HGB 14.5 01/11/2024 HCT 42.5 01/11/2024 MCV 86 01/11/2024 PLT 362 01/11/2024 Lab Results Component Value Date ALT 104 (H) 01/11/2024 AST 48 (H) 01/11/2024 ALKPHOS 83 01/11/2024 No results found for: INR , PROTIME No results found for: PTT Diagnostic Study Results: CT No results found. CTA No results found. MRI No results found. Angio No results found. Assessment and Plan: Yolanda was seen today for new patient. Diagnoses and all orders for this visit: Seizure disorder ([facility]) Witnessed seizure-like activity ([facility]) - Ambulatory referral to Neurology (Non[facility]) Anxiety Gastroesophageal reflux disease, unspecified whether esophagitis present Depression, unspecified depression type Eczema, unspecified type The patient is a 24 years old right-handed female with past medical history of anxiety, depression, GERD, eczema, who is Presenting to the neurology clinic for evaluation of seizure-like activity. Patient reports onset of paroxysms roughly six months ago. She has been witnessed to have multiple seizure-like episodes, which have all occurred during sleep. The episodes have been witnessed by thepatient's , who is usually woken up from the shaking. Patient reports being under immense amount of stress around the time when he started having these symptoms. Per patient, typically when under duress/stress, the patient would have paroxysms of what is described as episodes of staring into the distance , as if in deep thought. Paroxysms were not associated with automatisms, warning signs, auras, focal motor weakness, sensory disturbances, convulsions, rhythmic shaking, headaches, nausea, vomiting, visual impairment, falls, behavioral disturbances, agitation, hallucinations, Urinary incontinence or tongue bites. Typically the symptoms are aborted when the patient is distracted by someone else. He reports recalling a paroxysms which lasted afew hours as there was no one around him to make him snap out of it . Currently he reports havingthese episodes every other day. Patient denies any post event confusion, disorientation, lethargy, fatigue, incontinence. Patient denies previous history of seizures, history of TBI, history of meningitis or encephalitis, history of learning disability, febrile seizures. 1 of his dad's brother was recently diagnosed with seizures, however at an advanced age. 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 He is currently following up with a psychiatrist and dhruv parrish. Interestingly, he mentions at most with the paroxysms usually occur when the patient is transitioning from 1 personality to the other . Usually transitions from 1 personality to another intimes of stress/duress. Has not had any neuroimaging in the past. Denies having EEGs in the past. Is currently independent with ADLs and IADLs. Ambulating without any assistive devices. Current neurological examination is nonfocal. Clinical impression: Nocturnal generalized convulsions, based on semiology I am leaning towards nonepileptic etiology however the possibility of underlying epileptic disorder can not be completely ruled out. Pros and cons, will get MRI brain with without contrast, routine EEG for further evaluation. All concerns and questions from the patient and her spouse have been addressed. Discussed seizure precautions, no driving until seizure-free for 6 months and then needs to be cleared by a physician. Follow-up regularly with psychiatrist and counselor for management of anxiety and mood disorder. Continue supportive care. Regular follow-up with PCP. In 2-3 months. Problem List Digestive GERD (gastroesophageal reflux disease) Nervous and Auditory Seizure disorder (CMS-HCC) - Primary Musculoskeletal and Integument Eczema Other Anxiety Depression Follow-up: MD Megha Oates MD Vascular Neurologist [facility] ([facility]) I have personally participated in the care of this patient. I have reviewed all pertinent clinical information, including history, physical exam, investigation results and plan. I spent 45 minutes caring for this patient, and more than 50% of that time was spent on counseling the patient/alum operator/care team and coordinating care. Important Notice: This note was created with the assistance of a speech recognition program. While intending to generate a timely document that accurately reflects the content of the encounter, no guarantee can be provided that every grammatical or spelling mistake has been or will be identified or corrected. Thank you for your understanding. [facility] Miscellaneous Notes* Telephone Encounter - Kathrin Howard - 12/28/2023 8:48 AM EDT Please ask the following questions to the new patient that you are schedulin. IS THIS DUE TO AN ACCIDENT? - No 2. IS THIS WORKER'S COMP? - No 3. WHAT INSURANCE? - [employer] [facility] [employer] 4. HAVE YOU EVER BEEN SEEN BY A NEUROLOGIST BEFORE? IF YES, WHO AND WHEN? IS THIS A SECOND OPINION? - No 5. PATIENT IS SCHEDULED ON/WITH: - 01/29/2024 at 1:30pm with Dr. Bragg in [place]. Patient's requested [place] and requestedMD. documented in this encounterLake [facility] Telephone encounter Note* Telephone Encounter - Kathrin Howard - 12/28/2023 8:48 AM EDT Please ask the following questions to the new patient that you are schedulin. IS THIS DUE TO AN ACCIDENT? - No 2. IS THIS WORKER'S COMP? - No 3. WHAT INSURANCE? - [employer] 4. HAVE YOU EVER BEEN SEEN BY A NEUROLOGIST BEFORE? IF YES, WHO AND WHEN? IS THIS A SECOND OPINION? - No 5. PATIENT IS SCHEDULED ON/WITH: - 01/29/2024 at 1:30pm with Dr. Bragg in [place]. Patient's requested [place] and requestedMD. [facility] History of Present illness Narrative* Ottoniel Arias MD - 11/24/2023 7:45 AM EST Images from the original note were not included. [address] [place] [address] [address] [facility] [id number] Patient: Yolanda Villanueva Date [...] Visit via Real-time Synchronous Audiovisual Provider Location: [facility] [address] [place] [id number] Patient Location: Patient's home Video Visit Consent [...] that there are some limitations compared to jgdb-sp-fzhs evaluations. The patient consented to the presence of additional virtual and/or in-person participants. We elected to proceed. OTTONIEL ARIAS MD Family Medicine Physician [facility] 11/24/23 This note was completed with voice recognition software. The document was reviewed for errors however some may still be present. Please do not hesitate to contact/Epic ms the author to verify any questions/concerns. documented in this encounterL[facility]-04-[facility] History of Present illness Narrative* Ottoniel Arias MD - 10/08/2023 7:45 AM EST Images from the original note were not included. [address] [place] [id number] Patient: Yolanda Villanueva Date of : [...] Visit via Real-time Synchronous Audiovisual Provider Location: [facility] [address] [place] [phone] Patient Location: Patient's home Video Visit Consent [...] that there are some limitations compared to ctvi-mu-jqhk evaluations. The patient consented to the presence of additional virtual and/or in-person participants. We elected to proceed. OTTONIEL ARIAS MD Family Medicine Physician [facility] / [facility] 10/08/23 This note was completed with voice recognition software. The document was reviewed for errors however some may still be present. Please do not hesitate to contact/Epic msg the author to verify any questions/concerns. documented in this encounterL[facility] Evaluation note* Encounter Date Diagnosis Assessment Notes [...] declines urinalysis, declines test, denies suspicion of PLUQ Other Evaluation note* Diagnosis Onset Date Resolution Status Anxiety acute Depression [facility] Work Phone: Evaluation note* Diagnosis Seizure (CMS-HCC)- Primary Other convulsions Seizure (CMS-HCC) Other convulsions Non-traumatic rhabdomyolysis Acute renal failure, unspecified acute renal failure type (CMS-HCC) Transaminitis Nonspecific elevation of levels of transaminase or lactic acid dehydrogenase (LDH) Eczema, unspecified type Influenza A H1N1 infection [facility] Diagnosis Generalized anxiety disorder [facility]* Diagnosis Anxiety Anxiety state, unspecified documented [facility]* Diagnosis Seizure disorder (CMS-HCC)- Primary Unspecified epilepsy without mention of intractable epilepsy documented [facility]* Diagnosis Anxiety Anxiety state, unspecified documented in [facility]* Diagnosis Anxiety- Primary Anxiety state, unspecified Depression, unspecified depression type documented in [facility]* Diagnosis Seizure (CMS-HCC)- Primary Other convulsions Muscle cramp Cramp of limb documented [facility]* Diagnosis Breakthrough seizure (CMS-HCC)- Primary Gastroesophageal reflux disease, unspecified whether esophagitis present Seizure disorder (CMS-HCC) Unspecified epilepsy without mention of intractable epilepsy Eczema, unspecified type Anxiety Anxiety state, unspecified Depression, unspecified depression type documented in this encounter [facility]* Diagnosis Seizure disorder (CMS-HCC)- Primary Unspecified epilepsy without mention of intractable epilepsy Witnessed seizure-like activity (CMS-HCC) Anxiety Anxiety state, unspecified Gastroesophageal reflux disease, unspecified whether esophagitis present Depression, unspecified depression type Eczema, unspecified type Seizure disorder (CMS-HCC) Unspecified epilepsy without mention of intractable epilepsy documented [facility] Diagnosis Seizure disorder (CMS-HCC)- Primary Unspecified epilepsy without mention of intractable epilepsy Focal epilepsy (CMS-HCC) Acute kidney injury (CMS-HCC) Eczema of right hand documented in this [facility]* Diagnosis Seizure disorder (CMS-HCC)- Primary Unspecified epilepsy without mention of intractable epilepsy [facility] Diagnosis Seizure disorder (CMS-HCC)- Primary Unspecified epilepsy without mention of intractable epilepsy Breakthrough seizure (CMS-HCC) documented in this [facility]* Diagnosis Cannabinoid hyperemesis syndrome- Primary Nausea and vomiting, unspecified vomiting type Cannabinoid hyperemesis syndrome Hypokalemia Hypopotassemia Dehydration RAKESH (acute kidney injury) Acute kidney failure, unspecified Seizures (HCC) Other convulsions documented in this encounter [facility] note* Diagnosis Seizure disorder (CMS-HCC)- Primary Unspecified epilepsy without mention of intractable epilepsy Breakthrough seizure (CMS-HCC) Cannabinoid hyperemesis syndrome documented in this encounter [facility]* Diagnosis Nausea and vomiting, unspecified vomiting type- Primary Hypokalemia Hypopotassemia RAKESH (acute kidney injury) Seizure disorder (CMS-HCC) Unspecified epilepsy without mention of intractable epilepsy Hospital discharge follow-up Other follow-up examination documented in this encounter [facility]* Diagnosis Cannabis hyperemesis syndrome concurrent with and due to cannabis abuse (HCC)- Primary [facility] Diagnosis Cannabis hyperemesis syndrome concurrent with and due to cannabis abuse (HCC)- Primary Positive test examination or test, positive result documented in this encounter [facility] general Narrative - Reported* Type Description Date Medical History Hiatal hernia Medical History ulcers Surgical History double scope 2022 [facility] Other Hospital Discharge instructionsNot on filedocumented in [facility] Attachments The following attachments cannot be sent through Care Everywhere. * Substance Use Disorder (Senegalese) * Drug Use: Marijuana (Senegalese) [facility]ructionsNot on file documented in this encounterPro[facility] SystemInstructionsNot on file documented in this encounterProProtest[facility] SystemInstructionsNot on file documented in this encounterProProtestant [facility] HospitalEdge[facility] SystemInstructionsNot on file documented in this encounterProProtestant [facility] HospitalEdge[facility] SystemInstructionsNot on file documented in this encounterProProtestant [facility] HospitalEdge[facility] SystemInstructionsNot on file documented in this encounterProProtestant [facility] HospitalEdge[facility] SystemInstructionsNot on file documented in this encounterProProtestant [facility] HospitaleAS[facility] Health SystemInstructionsNot on file documented in this encounterProProtestant [facility] Hospit[facility] SystemInstructionsNot on file documented in this encounterProProtest[facility] HospitalEdge[facility] SystemInstructions* Attachments The following attachments cannot be sent through Care Everywhere. * Acute kidney injury (Senegalese) documented in this encounterProPro[facility] SystemInstructionsNot on file documented in this encounterProProtestant [facility]acon[facility] HospitalEdgeSpring SystemInstructionsNot on file documented in this encounterMarietta [facility] ClinicEdgeSpring SystemInstructionsNot on file documented in this encounterMarietta Osteopathic ClinicEdgeSpring SystemReason for visit Narrative* Auth/Cert Specialty Diagnoses / Procedures Referred By Jo t Referred To Contact Diagnoses Sepsis Marie Singh, DO [address] [address] Phone: tel: fax: Referral ID Status Reason Start Date Expiration Date Visits Re quested Visits Authorized [id number] 1 1 [facility]24Symbols Summary Purpose Family History No Family History Records Found Relationship Condition Age at Onset Recorded Date/T mary Not Specified No pertinent family history Unknown Advance Directives No Advanced Directives Records Found Advance Directive Response Recorded Date/ Time Advance Directives No April 17 4:25pm Date Activated Date Inactivated Comments 11/05/2024 1:14 AM Date Activated Date Inactivated Comments 11/05/2024 1:14 AM 11/12/2024 4:46 PM Date Activated Date Inactivated Comments 11/05/2024 1:14 AM 11/12/2024 4:46 PM Date Activated Date Inactivated Comments 04/25/2025 4:42 PM Date Activated Date Inactivated Comments 04/25/2025 4:42 PM 04/26/2025 6:58 PM Chief Complaint and Reason for Visit Chief Complaint MDD MDD Reason for Visit Anxiety Depression Reason for Referral Specialty Diagnoses / Procedures Referred By Contac t Referred To Contact Diagnoses Seizure disorder ([facility]) Procedures Sleep Deprived EEG Megha Bragg MD [address] [place] [address], [address] [place] [address] [facility] [address] [place] [address] Phone: [phone] Referral ID Status Reason Start Date Expiration Date V isits Requested Visits Authorized [id number] Pending Review 02/12/2024 02/11/2025 1 1 Specialty Diagnoses / Procedures Referred By Contac t Referred To Contact Diagnoses Breakthrough seizure ([facility]) Seizure disorder ([facility]) Procedures Mcc Monitoring for Epilepsy / LTME 5 Day Megha Bragg MD [address] [place] [address], [address] [place] [address] Referral ID Status Reason Start Date Expiration Date V isits Requested Visits Authorized [id number] Pending Review 07/12/2024 07/12/2025 5 5 Additional Source Comments INFORMATION SOURCE (unrecogn ized section and content) DATE CREATED AUTHOR [facility]/2022 [facility] DATE CREATED AUTHOR AUTHOR'S ORGANIZ ATION 01/21/2024 [facility] DATE CREATED AUTHOR AUTHOR'S ORGANIZ ATION 02/04/2024 [facility] DATE CREATED AUTHOR AUTHOR'S ORGANIZ ATION 11/14/2024 [facility] DATE CREATED AUTHOR AUTHOR'S ORGANIZ ATION 05/07/2025 [facility] DATE CREATED AUTHOR AUTHOR'S ORGANIZ ATION 05/21/[address] [facility] DATE CREATED AUTHOR AUTHOR'S ORGANIZ ATION 06/01/2025 [facility] DATE CREATED AUTHOR AUTHOR'S ORGANIZ ATION 06/23/[address] [facility] DATE CREATED AUTHOR AUTHOR'S ORGANIZ ATION 06/23/2025 [facility] REASON FOR VISIT (unrecogniz ed section and content) Reason Onset Date Comments levETIRAcetam (KEPPRA) 750 mg tablet 11/02/2024 Reason Comments Anxiety Reason Onset Date Comments Med Refill 02/08/2024 Reason Onset Date Comments Med Refill 03/20/2024 Reason Comments Medication Problem Anxiety medications not working Reason Onset Date Comments New Patient Appt. 12/28/2023 Reason Comments Follow-up Patient presents for follow up for seizures Reason Comments New Patient Patient is here toda y as a new patient for Dx of Witnessed seizure- like activity Specialty Diagnoses / Procedures Referred By Jo mendes Referred To Contact Neurology Diagnoses Witnessed seizure-like activity ([facility]) Samantha Keyes, SHIP PAINTER HELPER-EDUCATIONAL TECHNOLOGY SPECIALIST [address] [place] [address] Megha Bragg MD [address] [place] [address] Referral ID Status Reason Start Date Expiration Date Visits Requested Visits Authorized [id number] Pending Review Specialty Services Required 12/27/2023 12/26/2024 1 1 Reason Comments Follow-up Reason Onset Date Comments Transition Of Care 11/15/2024 Reason Onset Date Comments 12/20/24 [facility] RESCHEDULE 12/06/2024 Reason Comments Seizures Patient is here toda y for follow up on dx: Breakthrough seizure. Reason Comments Follow-up Patient is here toda y for follow up on dx: Seizure disorder. Reason Comments Nausea Pt c/o nausea for th e past 10 days and unable to keep anything down. Generalized abdominal pain starting just prior to the n/v. Chills. Specialty Diagnoses / Procedures Referred By Jo mendes Referred To Contact Diagnoses Dehydration Hypokalemia Cannabinoid hyperemesis syndrome Nausea and vomiting, unspecified vomiting type Triny Dumas MD [address] [facility] [place] [address] Phone: tel: fax: [facility] [address] [place] [address] Referral ID Status Reason Start Date Expiration Date Visits Re quested Visits Authorized [id number] 1 1 Reason Comments Follow-up Patient is here toda y for follow up on dx Seizure disorder. Reason Comments Follow-up Reason Comments Vomiting Complains of vomitin g for 3 days, reports having this before do to marijuana use. Reason Comments Abdominal Pain Patient presents to the emergency department with complaint of bilateral lower abdominal discomfort with nausea vomiting diarrhea for the past 2 days Care Teams (unrecognized sec tion and content) Team Status: Active Member Role Status Dates Ottoniel Arias MD Primary Care Provider Active Team Status: Inactive Member Role Status Dates Ottoniel Arias MD Primary Care Provider Active S tart: April 17, 2024 End: April 22, 2024 Obie Harley MD Admit Provider, Atte nding Provider Active Start: April 17, 2024 End: April 22, 2024 Team Status: Active Member Role Status Dates Ottoniel Arias MD Primary Care Provider Active S tart: April 20, 2024 Obie Harley MD Admit Provider, Othe r Provider Active Start: April 20, 2024 Donavon Montalvo MD Attending Provider Active Start: April 20, 2024 Group Controller Relationship Specialty Start Date End Date Ottoniel Arias MD [address] [place] [address] PCP - General Internal Medicine 01/06/24 Group Controller Relationship Specialty Start Date End Date Ottoniel Arias MD [address] [place] [address] PCP - General Internal Medicine 11/04/24 Group Controller Relationship Specialty Start Date End Date Ottoniel Arias MD [address] [place] [address] PCP - General Internal Medicine 04/10/23 Group Controller Relationship Specialty Start Date End Date Ottoniel Arias MD [address], [place] [address] PCP - General Internal Medicine 01/06/24 Group Controller Relationship Specialty Start Date End Date Ottoniel Arias MD [address], [place] [address] PCP - General Internal Medicine 11/04/24 Group Controller Relationship Specialty Start Date End Date Ottoniel Arias MD [address], [place] [address] PCP - General Internal Medicine 01/06/24 Group Controller Relationship Specialty Start Date End Date Ottoniel Arias MD [address], [place] [address] PCP - General Internal Medicine 04/10/23 Group Controller Relationship Specialty Start Date End Date Ottoniel Arias MD [address], [place] [address] PCP - General Internal Medicine 04/10/23 Group Controller Relationship Specialty Start Date End Date Ottoniel Arias MD [address], [place] [address] PCP - General Internal Medicine 01/06/24 Group Controller Relationship Specialty Start Date End Date Ottoniel Arias MD [address], [place] [address] PCP - General Internal Medicine 01/06/24 Group Controller Relationship Specialty Start Date End Date Ottoniel Arias MD [address], [place] [address] PCP - General Internal Medicine 01/06/24 Group Controller Relationship Specialty Start Date End Date Ottoniel Arias MD [address], [place] [address] PCP - General Internal Medicine 11/04/24 Group Controller Relationship Specialty Start Date End Date Ottoniel Arias MD [address], [place] [address] PCP - General Internal Medicine 11/04/24 Group Controller Relationship Specialty Start Date End Date Ottoniel Arias MD [address], [place] [address] PCP - General Internal Medicine 11/04/24 Group Controller Relationship Specialty Start Date End Date Ottoniel Arias MD [address], [place] [address] PCP - General Internal Medicine 11/04/24 Group Controller Relationship Specialty Start Date End Date Ottoniel Arias ND [address], [place] [address] PCP - General Family Medicine 04/25/25 Group Controller Relationship Specialty Start Date End Date Ottoniel Arias MD [address] [place] [address] PCP - General Internal Medicine 11/04/24 Group Controller Relationship Specialty Start Date End Date Ottoniel Arias MD [address] [place] [address] PCP - General Internal Medicine 11/04/24 Group Controller Relationship Specialty Start Date End Date Ottoniel Arias ND [address] [place] [address] PCP - General Family Medicine 04/25/25 Group Controller Relationship Specialty Start Date End Date Ottoniel Arias MD [address], [place] [address] PCP - General Internal Medicine 11/04/24 Group Controller Relationship Specialty Start Date End Date Ottoniel Arias ND [address] [place] [address] PCP - General Family Medicine 04/25/25 Scheduled Active and Recently Administ ered Medications (unrecognized section and content) Medication Order 11/10/2024 11/11/2024 11/12/2024 amLODIPine (NORVASC) tablet 5 mg (CANCELED) 5 mg, oral, Daily, First dose on Thu11/09/24 at 1100, Look-alike/sound-alike medication - verify indication for use. Avoid grapefruit juice. 0845 (Given - Provider: Anahi Astudillo RN) 0833 (Given - Provider: Samantha Oliver, PAMELA) 0908 (Given - Provider: Yadira Vigil RN) ammonium lactate (AMLACTIN) 12 % cream 1 Application 1 Application, topical, 2 times daily, First dose on Thu11/11/24 at 1015, Apply to Site of rash. 1115 (Given - Provider: Samantha Oliver RN)2219 (Given - Provider: Sam Jane, RN) 0900 (Not Given - Provider: Yadira Vigil RN - Reason: Patient/family refused)2100 (Due) ARIPiprazole (ABILIFY) tablet 2 mg 2 mg, oral, Daily, First dose on Shruti 11/10/24 at 0900, Look-alike/sound-alike medication - verify indication for use. 1136 (Given - Provider: Anahi Astudillo RN) 0833 (Given - Provider: Samantha Oliver RN) 0908 (Given - Provider: Yadira Vigil RN) diphenhydrAMINE (BENADRYL) injection 25 mg (COMPLETED) 25 mg, intravenous, Once, On 11/11/24 at 1015, For 1 dose, Look-alike/sound-alike medication - verify indication for use. 1115 (Given - Provider: Samantha Oliver RN) heparin (porcine) injection 5,000 Units 5,000 Units, subcutaneous, Every 12 hours scheduled, First dose on 11/05/24 at 0900, Look-alike/sound-alike medication - verify indication for use. Observe for bleeding. 0900 (Not Given - Provider: Anahi Astudillo RN - Reason: Patient/family refused)2100 (Not Given - Provider: Sam Jane RN - Reason: Patient/family refused) 0900 (Not Given - Provider: Samantha Oliver RN - Reason: Patient/family refused)2218 (Given - Provider: Sam Jane RN) 0908 (Given - Provider: Yadira Vigil RN)2100 (Due) lacosamide (VIMPAT) tablet 100 mg 100 mg, oral, 2 times daily, First dose on 11/07/24 at 2100, Swallow tablets whole; do not divide. 0845 (Given - Provider: Anahi Astudillo RN)2112 (Given - Provider: Sam Jane, PAMELA) 0832 (Given - Provider: Samantha Oliver RN)2217 (Given - Provider: Sam Jane, PAMELA) 0908 (Given - Provider: Yadira Vigil RN)2100 (Due) levETIRAcetam (KEPPRA) tablet 500 mg 500 mg, oral, 2 times daily, First dose on Thu11/07/24 at 1800, Look-alike/sound-alike medication - verify indication for use. 0844 (Given - Provider: Anahi Astudillo RN)2123 (Given - Provider: Sam Jane, RN) 0833 (Given - Provider: Samantha Oliver, PAMELA)2218 (Given - Provider: Sam Jane, RN) 0908 (Given - Provider: Yadiar Vigil RN)2100 (Due) magnesium sulfate IVPB 4000 mg/100 mL in iso-osmotic water (40 mg/mL premix) (COMPLETED) 4,000 mg, intravenous, at 25 mL/hr, Administer over 240 Minutes, Once, On 11/12/24 at 1000, For 1 dose 1019 (New Bag - Provider: Yadira Vigil RN)1329 (Stop Bag - Provider: Yadira Vigil RN) nicotine (NICODERM CQ) 14 mg/24 hr 1 patch 1 patch, transdermal, Administer over 24 Hours, Daily, First dose on 11/05/24 at 2000, Remove patch prior to MRI procedure as serious florentino may occur- patch may be reapplied. Remove previous patch, if present, before applying new. 1530 (Medication Applied - Provider: Anahi Astudillo RN) 1530 (Not Given - Provider: Samantha Oliver RN - Reason: Patient/family refused) 1615 (Due - Provider: Samantha Walden [facility]) oseltamivir (TAMIFLU) capsule 30 mg 30 mg, oral, 2 times daily, First dose on 11/12/24 at 2200, For 9 doses, Indication: Influenza treatment 2200 (Due) oseltamivir (TAMIFLU) capsule 75 mg (COMPLETED) 75 mg, oral, Once, On Thu11/11/24 at 1300, For 1 dose, Indication: Influenza treatment 1422 (Given - Provider: Samantha Oliver, PAMELA) PARoxetine (PAXIL) tablet 10 mg 10 mg, oral, Daily, First dose on Shruti 11/10/24 at 0900, Look-alike/sound-alike medication - verify indication for use. 1136 (Given - Provider: Anahi Astudillo RN) 0833 (Given - Provider: Samantha Oliver RN) 0908 (Given - Provider: Yadira Vigil, RN) Continuous Medication Order 11/10/2024 11/11/2024 11/12/2024 lactated ringers infusion 200 mL/hr, intravenous, Continuous, Starting on Thu11/07/24 at 1245 1032 (Rate/Dose Change - Provider: Anahi Astudillo RN)1800 (New Bag - Provider: Georgette Lazo RN)2308 (New Bag - Provider: Sam Jane, RN) 0410 (New Bag - Provider: Sam Jane RN)0838 (New Bag - Provider: Samantha Oliver RN)0900 (Stop Bag - Provider: Yadira Vigil RN)1423 (New Bag - Provider: Samantha Oliver, RN)1928 (New Bag - Provider: Sam Jane, RN) 0045 (New Bag - Provider: Sam Jane RN)0554 (New Bag - Provider: Sam Jane, RN)1105 (New Bag - Provider: Yadira Vigil RN)1333 (Rate/Dose Verify - Provider: Yadira Vigil RN) PRN Medication Order 11/10/2024 11/11/2024 11/12/2024 acetaminophen (TYLENOL EXTRA STRENGTH) tablet 500 mg 500 mg, oral, Every 6 hours PRN, mild pain - pain scale 1-3, temperature greater than 38 C, headaches, Starting on Thu11/09/24 at 0806 benzocaine (HURRICAINE ONE) 20 % mouth spray 1 spray 1 spray, mouth/throat, 3 times daily PRN, mucositis, Starting on Thu11/10/24 at 0856 1137 (Given - Provider: Anahi Astudillo RN)2112 (Given - Provider: Sam Jane, PAMELA) 0834 (Given - Provider: Samantha Oliver, RN)1424 (Given - Provider: Samantha Oliver, RN)2224 (Given - Provider: Sam Jane, PAMELA) 0908 (Given - Provider: Yadira Vigil RN) calcium gluconate 3,000 mg in sodium chloride 0.9 % 100 mL IVPB 3,000 mg, intravenous, at 43.3 mL/hr, Administer over 3 Hours, As needed, ionized calcium 3.5 to 3.9 mg/dL, Starting on Thu11/12/24 at 0926, IV Administration of calcium via a central or deep vein preferred. Avoid administration in small hand veins VESICANT (RED) calcium gluconate 4,000 mg in sodium chloride 0.9 % 250 mL IVPB 4,000 mg, intravenous, at 72.5 mL/hr, Administer over 4 Hours, As needed, ionized calcium 3.4 mg/dL or less, Starting on 11/12/24 at 0926, IV administration of calcium via a central or deep vein is preferred. Avoid administration in small hand veins. VESICANT (RED) calcium gluconate IVPB 2000 mg/100 mL (20 mg/mL premix) 2,000 mg, intravenous, at 50 mL/hr, Administer over 2 Hours, As needed, ionized calcium 4 to 4.3 mg/dL, Starting on 11/12/24 at 0926, IV Administration of calcium via a central or deep vein preferred. Avoid administration in small hand veins VESICANT (RED) dextrose (GLUTOSE) 40 % gel 15 g 15 g, oral, As needed, low blood sugar, blood glucose less than 70 mg/dL, Starting on 11/05/24 at 0114, If patient conscious and taking PO. If blood glucose is not greater than 70 mg/dL after initial treatment, repeat treatment. dextrose 50 % in water (D50W) 50% solution 25 mL 25 mL, intravenous, As needed, low blood sugar, blood glucose less than 70 mg/dL and unconscious or NPO with IV access, Starting on 11/05/24 at 0114, Push over 1-3 minutes STAT. If conscious and not NPO, immediately follow with meal tray or high protein (7 grams) snack if tray not available. If NPO, initiate 5% dextrose in water at 100 mL/hr and contact prescriber for additional orders. If blood glucose is not greater than 70 mg/dL after initial treatment, repeat treatment. VESICANT (RED) Warning: HYPERTONIC solution. diphenhydrAMINE (BENADRYL) capsule 25 mg 25 mg, oral, Every 6 hours PRN, itching, Starting on Thu11/11/24 at 1003, Look-alike/sound-alike medication - verify indication for use. glucagon HCL injection 1 mg 1 mg, intramuscular, As needed, low blood sugar, blood glucose less than 70 mg/dL and unconscious or NPO without IV access., Starting on 11/05/24 at 0114, If conscious and not NPO, immediately follow with meal tray or high protein (7Grams) snack if tray not available. If NPO, initiate IV 5% Dextrose/Water at 100 mL/hr and contact prescriber for additional orders. If blood glucose is not greater than 70 mg/dL after initial treatment, repeat treatment. magnesium sulfate IVPB 2000 mg/50 mL in iso-osmotic water (40 mg/mL premix) 2,000 mg, intravenous, at 25 mL/hr, Administer over 120 Minutes, As needed, Magnesium level 1.7 to 1.9 mg/dL, or Ionized Magnesium level 0.45 to 0.5 mmol/L., Starting on 11/07/24 at 1933, Recheck magnesium level 4 hours after infusion complete. With each magnesium result continue the replacement orders as needed. magnesium sulfate IVPB 4000 mg/100 mL in iso-osmotic water (40 mg/mL premix) 4,000 mg, intravenous, at 25 mL/hr, Administer over 240 Minutes, As needed, Magnesium level 1.6 mg/dL or less, or Ionized Magnesium level 0.44 mmol/L or less, Starting on 11/07/24 at 1933, Recheck magnesium level 4 hours after infusion complete. With each magnesium result continue the replacement orders as needed. ondansetron (PF) (ZOFRAN) injection 4 mg 4 mg, intravenous, Every 6 hours PRN, nausea, vomiting, Starting on 11/05/24 at 0938, Administer over 2-5 minutes. potassium chloride (K-TAB,KLOR-CON) CR tablet 20-60 mEq(Linked Group 1) 20-60 mEq, oral, As needed, Potassium Supplementation, Starting on 11/12/24 at 0925, Progress to oral potassium replacement when patient tolerating oral intake. If dose administered, recheck potassium level 4 hours after last dose. For potassium level 3.4 to 3.7 mmol/L =20 mEq. For potassium level 3.1 to 3.3 mmol/L =40 mEq. For potassium level 3 mmol/L or less =60 mEq. Do not crush or chew. potassium chloride (KAYCIEL) 20 mEq/15 mL solution 20-60 mEq(Linked Group 1) 20-60 mEq, oral, As needed, Potassium Supplementation, Starting on 11/12/24 at 0925, Progress to oral potassium replacement when patient tolerating oral intake. If dose administered, recheck potassium level 4 hours after last dose. For potassium level 3.4 to 3.7 mmol/L =20 mEq. For potassium level 3.1 to 3.3 mmol/L =40 mEq. For potassium level 3 mmol/L or less =60 mEq. Must dilute before use - Mix in 3-8 ounces of water or juice before administration When administering in feeding tube, flush before and after per policy and monitor potassium levels potassium chloride IVPB 10 mEq/100 mL in water (0.1 mEq/mL premix)(Linked Group 1) 10 mEq, intravenous, at 100 mL/hr, Administer over 60 Minutes, As needed, POTASSIUM REPLACEMENT, Starting on 11/12/24 at 0925, IV if unable to use oral/enteral with the current dosing strategies For potassium level 3.4 to 3.7 mmol/L =20 mEq. For potassium level 3.1 to 3.3 mmol/L =40 mEq. For potassium level 3 mmol/L or less =60 mEq. Use central line when applicable. Recheck potassium level 1 hour after total IVPB infusion complete With each potassium result continue the replacement orders as needed VESICANT (YELLOW) Infuse each 10 mEq over a minimum of 1 hour. sod phos di, mono-K phos mono (K-PHOS NEUTRAL) 250 mg tablet 2 tablet(Linked Group 2) 2 tablet, oral, As needed, for phosphorus level 2.3 mg/dL or less. Do not administer if potassium is more than 4.5, Starting on 11/12/24 at 0926, If dose administered, recheck phosphorus level 4 hours after last dose. Look-alike/sound-alike medication - verify indication for use. Give with a full glass of water. sodium phosphate 20 mmol in sodium chloride 0.9 % 100 mL IVPB(Linked Group 2) 20 mmol, intravenous, at 26.7 mL/hr, Administer over 4 Hours, As needed, for phosphorus level 2.3 mg/dL or less., Starting on 11/12/24 at 0926, Administer over 4 hours via dedicated line (central line). If administered, recheck phosphorus level 4 hours after infusion complete. Infuse using central line access. sodium phosphate 20 mmol in sodium chloride 0.9 % 250 mL IVPB(Linked Group 2) 20 mmol, intravenous, at 42.8 mL/hr, Administer over 6 Hours, As needed, for phosphorus level 2.3 mg/dL or less, Starting on 11/12/24 at 0926, Administer over 6 hours via dedicated line (peripheral line). If administered, recheck phosphorus level 4 hours after infusion complete. Linked Groups Order Group 1: potassium chloride (K-TAB,KLOR-CON) CR tablet 20-60 mEqJump to med 20-60 mEq, oral, As needed, Potassium Supplementation, Starting on 11/12/24 at 0925, Progress to oral potassium replacement when patient tolerating oral intake. If dose administered, recheck potassium level 4 hours after last dose. For potassium level 3.4 to 3.7 mmol/L =20 mEq. For potassium level 3.1 to 3.3 mmol/L =40 mEq. For potassium level 3 mmol/L or less =60 mEq. Do not crush or chew. Or potassium chloride (KAYCIEL) 20 mEq/15 mL solution 20-60 mEqJump to med 20-60 mEq, oral, As needed, Potassium Supplementation, Starting on 11/12/24 at 0925, Progress to oral potassium replacement when patient tolerating oral intake. If dose administered, recheck potassium level 4 hours after last dose. For potassium level 3.4 to 3.7 mmol/L =20 mEq. For potassium level 3.1 to 3.3 mmol/L =40 mEq. For potassium level 3 mmol/L or less =60 mEq. Must dilute before use - Mix in 3-8 ounces of water or juice before administration When administering in feeding tube, flush before and after per policy and monitor potassium levels Or potassium chloride IVPB 10 mEq/100 mL in water (0.1 mEq/mL premix)Jump to med 10 mEq, intravenous, at 100 mL/hr, Administer over 60 Minutes, As needed, POTASSIUM REPLACEMENT, Starting on 11/12/24 at 0925, IV if unable to use oral/enteral with the current dosing strategies For potassium level 3.4 to 3.7 mmol/L =20 mEq. For potassium level 3.1 to 3.3 mmol/L =40 mEq. For potassium level 3 mmol/L or less =60 mEq. Use central line when applicable. Recheck potassium level 1 hour after total IVPB infusion complete With each potassium result continue the replacement orders as needed VESICANT (YELLOW) Infuse each 10 mEq over a minimum of 1 hour. Group 2: sodium phosphate 20 mmol in sodium chloride 0.9 % 250 mL IVPBJump to med 20 mmol, intravenous, at 42.8 mL/hr, Administer over 6 Hours, As needed, for phosphorus level 2.3 mg/dL or less, Starting on 11/12/24 at 0926, Administer over 6 hours via dedicated line (peripheral line). If administered, recheck phosphorus level 4 hours after infusion complete. Or sodium phosphate 20 mmol in sodium chloride 0.9 % 100 mL IVPBJump to med 20 mmol, intravenous, at 26.7 mL/hr, Administer over 4 Hours, As needed, for phosphorus level 2.3 mg/dL or less., Starting on 11/12/24 at 0926, Administer over 4 hours via dedicated line (central line). If administered, recheck phosphorus level 4 hours after infusion complete. Infuse using central line access. Or sod phos di, mono-K phos mono (K-PHOS NEUTRAL) 250 mg tablet 2 tabletJump to med 2 tablet, oral, As needed, for phosphorus level 2.3 mg/dL or less. Do not administer if potassium is more than 4.5, Starting on 11/12/24 at 0926, If dose administered, recheck phosphorus level 4 hours after last dose. Look-alike/sound-alike medication - verify indication for use. Give with a full glass of water. Scheduled Medication Order 04/24/2025 04/25/2025 04/26/2025 droPERidol (INAPSINE) injection 2.5 mg (COMPLETED) 2.5 mg, IntraVENous, ONCE, 1 dose, On Thu04/25/25 at 1230 1227 (Given - Provider: Layne Jacobs RN) enoxaparin (LOVENOX) injection 40 mg 40 mg, SubCUTAneous, DAILY, First dose on Thu04/25/25 at 1700, Until Discontinued, Indication of Use: Prophylaxis-DVT/PE, Administer by deep subCUTAneous injection with pt lying down. Alternate injection sites on abdominal wall. Do not rub site after injection. Check with provider prior to any invasive procedure. 1741 (Given - Provider: Ranjana Bay) 830 (Not Given - Provider: Veronique Lyn RN - Reason: IV Fluid Infusing) famotidine (PEPCID) 20 MG/2ML 20 mg in sodium chloride (PF) 0.9 % 10 mL injection 20 mg, IntraVENous, DAILY, First dose on Thu04/25/25 at 1815, Until Discontinued, IV Push over minimum of 2 minutes - Dilute with 10 mL NS 2048 (Given - Provider: Hellen Camilo RN) 830 (Given - Provider: Veronique Lyn RN) levETIRAcetam (KEPPRA) tablet 750 mg 750 mg, Oral, 2 TIMES DAILY, First dose on Thu04/25/25 at 2100, Until Discontinued, Do not crush or chew. 2049 (Given - Provider: Hellen Camilo RN) 829 (Given - Provider: Veronique Lyn RN)2100 (Due) PARoxetine (PAXIL) tablet 40 mg 40 mg, Oral, EVERY MORNING, First dose on Thu04/26/25 at 0900, Until Discontinued 829 (Given - Provid er: Veronique Lyn RN) potassium bicarb-citric acid (EFFER-K) effervescent tablet 40 mEq (COMPLETED) 40 mEq, Oral, ONCE, 1 dose, On Thu04/25/25 at 1300, Do not chew or crush. Dissolve flavored tablets completely in 3 to 4 ounces of cold water; unflavored tablets may be dissolved in 3 to 4 ounces of cold juice. Patient to sip slowly over a 5 to 10 minute period. May further dilute if GI adverse effects occur. 1328 (Given - Provider: Layne Jacobs RN) potassium chloride (KLOR-CON M) extended release tablet 40 mEq (COMPLETED) 40 mEq, Oral, ONCE, 1 dose, On Thu04/26/25 at 0745, Do not crush, chew, or suck on tablet. Tablet may also be broken in half and each half swallowed separately. 829 (Given - Provid er: Veronique Lyn RN) potassium chloride (KLOR-CON M) extended release tablet 40 mEq (COMPLETED) 40 mEq, Oral, ONCE, 1 dose, On Thu04/26/25 at 1200, Do not crush, chew, or suck on tablet. Tablet may also be broken in half and each half swallowed separately. 1220 (Given - Provid er: Jo Berry RN) potassium chloride 10 mEq/100 mL IVPB (Peripheral Line) (COMPLETED) 10 mEq, IntraVENous, ONCE, 1 dose, On Thu04/25/25 at 1300, at 100 mL/hr, Potassium chloride doses are limited to a maximum of six consecutive doses before reassessment of laboratory values is needed. 1331 (New Bag - Provider: Layne Jacobs RN)1623 (Stopped - Provider: Layne Jacobs RN) sodium chloride 0.9 % bolus 1,000 mL (COMPLETED) 1,000 mL (12.3 mL/kg), IntraVENous, at 983.6 mL/hr, Administer over 61 Minutes, ONCE, On Thu04/25/25 at 1215, For 1 dose 1221 (New Bag - Provider: Layne Jacobs RN)1305 (Stopped - Provider: Layne Jacobs RN) sodium chloride 0.9 % bolus 1,000 mL (COMPLETED) 1,000 mL (12.3 mL/kg), IntraVENous, at 983.6 mL/hr, Administer over 61 Minutes, ONCE, On Thu04/25/25 at 1315, For 1 dose 1328 (New Bag - Provider: Layne Jacobs RN)1624 (Stopped - Provider: Layne Jacobs RN) sodium chloride flush 0.9 % injection 5-40 mL 5-40 mL, IntraVENous, EVERY 12 HOURS SCHEDULED (2 times per day), First dose on Thu04/25/25 at 2100, Until Discontinued, For Line Patency: Peripheral IV = 5 mL; Midline or Central Line = 10 mL/lumen. If following IV push medication, administer flush at same rate as the IV push. Flush volume is determined by type of infusion therapy being given. For non-viscous solutions use: Peripheral IV = 5 mL Midline or Central Line = 10 mL/lumen For viscous solutions (i.e. blood components, parenteral nutrition, contrast media, or after obtaining blood sample) use: Peripheral IV = 10 mL Midline or Central Line = 20 mL/lumen 2050 (Not Given - Provider: Hellen Camilo RN - Reason: IV Fluid Infusing) 0831 (Given - Provider: Veronique Lyn PAMELA)2100 (Due) venlafaxine (EFFEXOR) tablet 37.5 mg 37.5 mg, Oral, DAILY, First dose on Thu04/25/25 at 1700, Until Discontinued 1742 (Given - Provider: Ranjana Bay) 0830 (Given - Provider: Veronique Lyn RN) Continuous Medication Order 04/24/2025 04/25/2025 04/26/2025 0.9 % sodium chloride infusion (CANCELED) IntraVENous, at 75 mL/hr, CONTINUOUS, Starting on Thu04/25/25 at 1700, For 24 hours, Complete last bag that is running at 24 hours and then saline lock IV 1743 (New Bag - Provider: Ranjana Bay) 0739 (Stopped - Provider: Veronique Lyn RN) dextrose 5 % and 0.45 % NaCl with KCl 20 mEq infusion IntraVENous, at 100 mL/hr, CONTINUOUS, Starting on Thu04/26/25 at 0745 0748 (New Bag - Provider: Veronique Lyn RN)1630 (Stopped - Provider: Jo Berry RN) PRN Medication Order 04/24/2025 04/25/2025 04/26/2025 0.9 % sodium chloride infusion IntraVENous, at 5-250 mL/hr, PRN, if patient receiving piggyback infusions and maintenance fluids are not ordered, Starting on Thu04/25/25 at 1642, For piggyback infusion, administer at same rate as piggyback for a total of 25 mL. Enter 25 mL into dose field and piggyback rate into rate field of order. If piggyback is infusing at a rate less than 100 mL/hr, enter 25 mL into dose field and 100 mL/hr into rate field of order. acetaminophen (TYLENOL) suppository 650 mg(Linked Group 1) 650 mg, Rectal, EVERY 6 HOURS PRN, Starting on Thu04/25/25 at 1642, Until Discontinued, Pain Mild (1-3) OR per patient request for pain score (4-10), Fever, For temp greater than 100.4 F (38 C), Administer if oral route cannot be used. acetaminophen (TYLENOL) tablet 650 mg(Linked Group 1) 650 mg, Oral, EVERY 6 HOURS PRN, Starting on Thu04/25/25 at 1642, Until Discontinued, Pain Mild (1-3) OR per patient request for pain score (4-10), Fever, For temp greater than 100.4 F (38 C), Maximum dose of acetaminophen is 4000 mg from all sources in 24 hours. iopamidol (ISOVUE-370) 76 % injection 75 mL (COMPLETED) 75 mL, IntraVENous, IMG ONCE PRN, 1 dose, Starting on Thu04/25/25 at 1313, Until Thu04/25/25 at 1314, Other 1314 (Given - Provider: Afshin Flores) magnesium sulfate 2000 mg in 50 mL IVPB premix 2,000 mg, IntraVENous, at 25 mL/hr, Administer over 2 Hours, PRN, Other, Magnesium Replacement, Starting on Thu04/25/25 at 1642, Mag Lab Replacement Action 1.4-1.6 mg/dL 2,000 mg Total Dose Given as 1,000 mg IVPB x 2 doses or 2,000 mg IVPB x 1 dose 1.0-1.3 mg/dL 4,000 mg Total Dose Given as 1,000 mg IVPB x 4 doses or 2,000 mg IVPB x 2 doses Less than 1.0 mg/dL CALL PHYSICIAN and give 4,000 mg Total Dose Given as 1,000 mg IVPB x 4 doses or 2,000 mg IVPB x 2 doses Infuse at 1,000 mg/hr consecutively Repeat Mag level 1 hour after final administration Protocol not for use in Patients with CrCl less than 30ml/min ondansetron (ZOFRAN) injection 4 mg(Linked Group 2) 4 mg, IntraVENous, EVERY 6 HOURS PRN, Starting on Thu04/25/25 at 1642, Until Discontinued, Nausea, Vomiting, Administer if oral route cannot be used. 0946 (Given - Provid er: Jo Berry RN) ondansetron (ZOFRAN-ODT) disintegrating tablet 4 mg(Linked Group 2) 4 mg, Oral, EVERY 8 HOURS PRN, Starting on Thu04/25/25 at 1642, Until Discontinued, Nausea, Vomiting 0946 (See Alternativ e - Provider: Jo Berry RN) polyethylene glycol (GLYCOLAX) packet 17 g 17 g, Oral, DAILY PRN, Starting on Thu04/25/25 at 1642, Until Discontinued, Constipation, First line therapy for constipation potassium bicarb-citric acid (EFFER-K) effervescent tablet 40 mEq(Linked Group 3) 40 mEq, Oral, PRN, Starting on Thu04/25/25 at 1642, Until Discontinued, Per Potassium Replacement Protocol, Administer as alternative if patient unable to tolerate oral tablet. K Lab Replacement Action 3.1 to 3.5 40 mEq ORAL x 1 Under 3.1 Refer to IV replacement protocol Recheck K level in AM. Protocol not for use in patients with CrCl lessthan 30 mL/min. Do not chew or crush. Dissolve flavored tablets completely in 3 to 4 ounces of cold water; unflavored tablets may be dissolved in 3 to 4 ounces of cold juice. Patient to sip slowly over a 5 to 10 minute period. May further dilute if GI adverse effects occur. 0640 (See Alternativ e - Provider: Veronique Lyn RN)0747 (See Alternative - Provider: Veronique Lyn RN)0906 (See Alternative - Provider: Jo Berry RN)1011 (See Alternative - Provider: Jo Berry RN)1105 (See Alternative - Provider: Jo Berry RN)1129 (See Alternative - Provider: Jo Berry RN)1231 (See Alternative - Provider: Jo Berry RN)1330 (See Alternative - Provider: Jo Berry RN) potassium chloride (KLOR-CON M) extended release tablet 40 mEq(Linked Group 3) 40 mEq, Oral, PRN, Starting on Thu04/25/25 at 1642, Until Discontinued, Potassium Replacement, May give alternative linked oral order (ordered as effervescent, packet, or liquid solution) if patient unable to tolerate tablet. K Lab Replacement Action 3.1 to 3.5 40 mEq ORAL x 1 Under 3.1 Refer to IV replacement protocol Recheck K level in AM. Protocol not for use in patients with CrCl less than 30 mL/min. Do not crush, chew, or suck on tablet. Tablet may also be broken in half and each half swallowed separately. 0640 (See Alternativ e - Provider: Veronique Lyn RN)0747 (See Alternative - Provider: Veronique Lyn RN)0906 (See Alternative - Provider: Jo Berry RN)1011 (See Alternative - Provider: Jo Berry RN)1105 (See Alternative - Provider: Jo Berry RN)1129 (See Alternative - Provider: Jo Berry RN)1231 (See Alternative - Provider: Jo Berry RN)1330 (See Alternative - Provider: Jo Berry RN) potassium chloride 10 mEq/100 mL IVPB (Peripheral Line)(Linked Group 3) 10 mEq, IntraVENous, PRN, Starting on Thu04/25/25 at 1642, Until Discontinued, at 100 mL/hr, Potassium Replacement, K Lab Replacement Action 2.7 to 3.0 10 mEq IVPB x 6 doses (60 mEq Total) Under 2.7 CALL PROVIDER and administer 10 mEq IVPB x 6 doses (60 mEq Total) Infuse at 10 mEq/hr consecutively. Repeat Potassium lab 1 hour after final administration., Protocol not for use in patients with CrCl less than 30 mL/min. 0640 (New Bag - Provider: Veronique Lyn RN)0747 (New Bag - Provider: Veronique Lyn RN)0906 (New Bag - Provider: Jo Berry RN)1011 (New Bag - Provider: Jo Berry RN)1105 (Rate/Dose Change - Provider: Jo Berry RN)1129 (New Bag - Provider: Jo Berry RN)1231 (New Bag - Provider: oJ Berry RN)1330 (Stopped - Provider: Jo Berry RN) promethazine (PHENERGAN) 12.5mg in sodium chloride 0.9% 50 mL IVPB SOLN 12.5 mg 12.5 mg, IntraVENous, at 100 mL/hr, Administer over 30 Minutes, EVERY 6 HOURS PRN, Nausea, Starting on Thu04/26/25 at 0727, Administer via antecubital vein or higher. 0836 (New Bag - Provider: Veronique Lyn RN)0910 (Stopped - Provider: Jo Berry RN) sodium chloride flush 0.9 % injection 5-40 mL 5-40 mL, IntraVENous, PRN, Starting on Thu04/25/25 at 1642, Until Discontinued, Line Care, After every IV line use, For Line Patency: Peripheral IV = 5 mL; Midline or Central Line = 10 mL/lumen. If following IV push medication, administer flush at same rate as the IV push. Flush volume is determined by type of infusion therapy being given. For non-viscous solutions use: Peripheral IV = 5 mL Midline or Central Line = 10 mL/lumen For viscous solutions (i.e. blood components, parenteral nutrition, contrast media, or after obtaining blood sample) use: Peripheral IV = 10 mL Midline or Central Line = 20 mL/lumen Linked Groups Order Group 1: acetaminophen (TYLENOL) tablet 650 mgJump to med 650 mg, Oral, EVERY 6 HOURS PRN, Starting on Thu04/25/25 at 1642, Until Discontinued, Pain Mild (1-3) OR per patient request for pain score (4-10), Fever, For temp greater than 100.4 F (38 C), Maximum dose of acetaminophen is 4000 mg from all sources in 24 hours. Or acetaminophen (TYLENOL) suppository 650 mgJump to med 650 mg, Rectal, EVERY 6 HOURS PRN, Starting on Thu04/25/25 at 1642, Until Discontinued, Pain Mild (1-3) OR per patient request for pain score (4-10), Fever, For temp greater than 100.4 F (38 C), Administer if oral route cannot be used. Group 2: ondansetron (ZOFRAN-ODT) disintegrating tablet 4 mgJump to med 4 mg, Oral, EVERY 8 HOURS PRN, Starting on Thu04/25/25 at 1642, Until Discontinued, Nausea, Vomiting Or ondansetron (ZOFRAN) injection 4 mgJump to med 4 mg, IntraVENous, EVERY 6 HOURS PRN, Starting on Thu04/25/25 at 1642, Until Discontinued, Nausea, Vomiting, Administer if oral route cannot be used. Group 3: potassium chloride (KLOR-CON M) extended release tablet 40 mEqJump to med 40 mEq, Oral, PRN, Starting on Thu04/25/25 at 1642, Until Discontinued, Potassium Replacement, May give alternative linked oral order (ordered as effervescent, packet, or liquid solution) if patient unable to tolerate tablet. K Lab Replacement Action 3.1 to 3.5 40 mEq ORAL x 1 Under 3.1 Refer to IV replacement protocol Recheck K level in AM. Protocol not for use in patients with CrCl less than 30 mL/min. Do not crush, chew, or suck on tablet. Tablet may also be broken in half and each half swallowed separately. Or potassium bicarb-citric acid (EFFER-K) effervescent tablet 40 mEqJump to med 40 mEq, Oral, PRN, Starting on Thu04/25/25 at 1642, Until Discontinued, Per Potassium Replacement Protocol, Administer as alternative if patient unable to tolerate oral tablet. K Lab Replacement Action 3.1 to 3.5 40 mEq ORAL x 1 Under 3.1 Refer to IV replacement protocol Recheck K level in AM. Protocol not for use in patients with CrCl lessthan 30 mL/min. Do not chew or crush. Dissolve flavored tablets completely in 3 to 4 ounces of cold water; unflavored tablets may be dissolved in 3 to 4 ounces of cold juice. Patient to sip slowly over a 5 to 10 minute period. May further dilute if GI adverse effects occur. Or potassium chloride 10 mEq/100 mL IVPB (Peripheral Line)Jump to med 10 mEq, IntraVENous, PRN, Starting on Thu04/25/25 at 1642, Until Discontinued, at 100 mL/hr, Potassium Replacement, K Lab Replacement Action 2.7 to 3.0 10 mEq IVPB x 6 doses (60 mEq Total) Under 2.7 CALL PROVIDER and administer 10 mEq IVPB x 6 doses (60 mEq Total) Infuse at 10 mEq/hr consecutively. Repeat Potassium lab 1 hour after final administration., Protocol not for use in patients with CrCl less than 30 mL/min. Scheduled Medication Order 05/11/2025 05/12/2025 05/13/2025 ondansetron (ZOFRAN) injection 4 mg (COMPLETED) 4 mg, IntraVENous, ONCE, 1 dose, On 05/13/25 at 1515 1528 (Given - Provid er: Eliane Tracey RN) potassium chloride (KLOR-CON M) extended release tablet 20 mEq (COMPLETED) 20 mEq, Oral, ONCE, 1 dose, On 05/13/25 at 1745, Do not crush or break. Do not crush, chew, or suck on tablet. Tablet may also be broken in half and each half swallowed separately. 173 (Given - Provid er: Eliane Tracey RN) prochlorperazine (COMPAZINE) injection 10 mg (COMPLETED) 10 mg, IntraVENous, ONCE, 1 dose, On 05/13/25 at 1615, If administering IV push, administer at a maximum rate of 5 mg/minute. Patients should remain lying down following administration and be reassessed for relief of nausea and presence of hypotension. Patients should be assisted the first time they get up after administration. 1619 (Given - Provid er: Eliane Tracey RN) sodium chloride 0.9 % bolus 1,000 mL (COMPLETED) 1,000 mL, IntraVENous, at 1,000 mL/hr, Administer over 1 Hours, ONCE, On 05/13/25 at 1615, For 1 dose, May administer over 30 minutes if well tolerated. 1617 (New Bag - Prov ider: Eliane Tracey RN)1739 (Stopped - Provider: Eliane Tracey RN) sodium chloride 0.9 % bolus 500 mL (COMPLETED) 500 mL, IntraVENous, at 1,000 mL/hr, Administer over 30 Minutes, ONCE, On 05/13/25 at 1515, For 1 dose 1526 (New Bag - Prov ider: Eliane Tracey RN)1603 (Stopped - Provider: Elaine Tracey RN) Scheduled Medication Order 06/18/2025 06/19/2025 06/20/2025 capsaicin (ZOSTRIX) 0.025 % cream (COMPLETED) Topical, Once, On Thu06/20/25 at 1230, For 1 dose, Apply to abdomen. Do not apply to wounds, damaged,broken or irritated skin. Do not cover with bandage. Do not use in combination with external heat source (eg. heating pad) 1231 (Given - Provid er: Rashmi Fraga RN - Comment: mid abdomen.) ondansetron (ZOFRAN) injection 4 mg (COMPLETED) 4 mg, IntraVENous, ONCE, 1 dose, On Thu06/20/25 at 1230 1223 (Given - Provid er: Rashmi Fraga RN) sodium chloride 0.9 % bolus 1,000 mL (COMPLETED) 1,000 mL (11 mL/kg), IntraVENous, at 495.9 mL/hr, Administer over 121 Minutes, ONCE, On Thu06/20/25 at 1230, For 1 dose 1224 (New Bag - Prov ider: Rashmi Fraga RN)1225 (Rate/Dose Verify - Provider: Jen Leonard RN)1253 (Paused - Provider: Jen Leonard RN)1329 (Restarted - Provider: Jen Leonard RN)1338 (Paused - Provider: Jen Leonard RN)1357 (Restarted - Provider: Jen Leonard RN)1357 (Paused - Provider: Jen Leonard RN)1406 (Restarted - Provider: Jen Leonard RN)1425 (Due: Stopped - Provider: Rashmi Fraga RN)1503 (Stopped - Provider: Jen Leonard RN) Ordered Prescriptions (unrec ognized section and content) Prescription Sig Dispense Quantity Refills Last Filled Start Date End Date ondansetron (ZOFRAN-ODT) 4 MG disintegrating tablet Take 1 tablet by mouth 3 times daily as needed for Nausea or Vomiting 28 tablet 04/26/2025 Prescription Sig Dispense Quantity Refills Last Filled Start Date End Date potassium chloride (KLOR-CON M) 20 MEQ extended release tablet Take 1 tablet by mouth daily for 4 doses 4 tablet 05/13/2025 05/17/2025 prochlorperazine (COMPAZINE) 10 MG tablet Take 1 tablet by mouth every 6 hours as needed (Nausea and Vomiting) 12 tablet 05/13/2025 Prescription Sig Dispense Quantity Refills Last Filled Start Date End Date ondansetron (ZOFRAN-ODT) 4 MG disintegrating tablet Take 1 tablet by mouth 3 times daily as needed for Nausea or Vomiting 21 tablet 06/20/2025 FOR RECORDS PERTAINING TO PATIENTS WHO ARE [...] BE BASED ON THE PRIMARY CLINICAL RECORDS. [facility] provides no warranty or guarantee of the accuracy or completeness of information in this document.
[2025-06-26 15:34] LABS: Hematocrit 40.7 % (36.0-48.0); Hemoglobin 14.7 g/dL (12.0-16.0); Immature Granulocytes Abs Auto 0.16 10^3/uL (0.00-0.03); Immature Granulocytes Pct Auto 0.9 % (0.0-0.5); Lymphocytes Absolute Auto 2.4 10^3/uL (1.2-3.8); Mean Corpuscular HGB Conc 36.1 g/dL (29.9-35.2); Mean Corpuscular Hemoglobin 30.6 pg (26.7-34.0); Mean Corpuscular Volume 84.6 fL (81.0-99.0); Platelet Count 497 10^3/uL (150-450); Red Blood Count 4.81 10^6/uL (4.20-5.40); White Blood Count 16.9 10^3/uL (4.0-11.0)
[2025-06-26 15:40] LABS: Glucose Urine UA NEGATIVE (NEGATIVE)
[2025-06-26 15:45] LABS: HCG Qualitative Urine* POSITIVE (NEGATIVE)
[2025-06-26 15:57] LABS: Cast Seen? NONE SEEN #/LPF (NONE SEEN); Crystals Seen? None Seen #/HPF (None Seen); Urine Culture Indicated YES-FRMC
[2025-06-26 16:02] LABS: Alanine Aminotransferase 74 U/L (14-59); Albumin Globulin Ratio 1.0; Albumin Level 4.7 g/dL (3.4-5.0); Alkaline Phosphatase 86 U/L (46-116); Anion Gap 14.9; Aspartate Amino Transferase 38 U/L (15-37); Blood Urea Nitrogen 34.0 mg/dL (7.0-18.0); Calcium 9.4 mg/dL (8.5-10.1); Carbon Dioxide 27.5 mmol/L (21.0-32.0); Chloride 90 mmol/L (98-107); Estimated GFR (African America 55 (>=60 mL/min/1.73m^2); Estimated GFR (Non-African Ame 45 (>=60 mL/min/1.73m^2); Globulin 4.8 g/dL; Glucose 142 mg/dL (74-106); Lipase 54.0 U/L (16.0-77.0); Sodium 130 mmol/L (136-145); Total Protein 9.5 g/dL (6.4-8.2)
[2025-06-26 16:06] LABS: Potassium 2.4 mmol/L (3.5-5.1)
[2025-06-26 16:29] LABS: Magnesium 2.6 mg/dL (1.8-2.4)
--- NOTE | 2025-06-26 16:44 | ED_ITS ---
HPI - Nausea/Vomiting/Diarrhea General Chief complaint: Nausea/Vomiting/Diarrhea Stated complaint: NAUSEA/VOMITING Time Seen by Provider: 06/26/25 14:55 Source: patient Mode of arrival: walk-in Limitations: no limitations History of Present Illness HPI Narrative: 25-year-old female presents to the ED with nausea, vomiting, and mid-abdominal pain for 5 days. No black or bloody emesis. Pain is crampy, intermittent, l ocalized to mid-abdomen and right upper quadrant, without radiation. She has decreased oral intake, decreased urine output, and reports feeling generally unwell. Denies fever, chest pain, shortness of breath, vaginal bleeding, or discharge. She is with a history of 3 miscarriages. No new medications. No headache or URI symptoms. She did try an oral Zofran without relief at home. Denies alcohol, drug use or smoking. Related Data Home Medications ?Medication ?Instructions ?Recorded ?Confirmed paroxetine HCl 40 mg tablet 40 mg PO DAILY 07/01/24 buspirone 7.5 mg tablet 7.5 mg PO BID 06/26/2506/26 levetiracetam 500 mg tablet 1,500 mg PO Q12H 06/26/25 06/26/25 venlafaxine 37.5 mg 37.5 mg PO DAILY 06/26/25 capsule,extended release 24 hr Previous Rx's ?Medication ?Instructions ?Recorded nitrofurantoin 100 mg PO BID 5 days #10 cap s 06/26/25 monohydrate/macrocrystals 100 mg capsule (Macrobid) potassium chloride 10 mEq 10 meq PO BID 4 days #8 tabs 06/26/25 tablet,extended release promethazine 12.5 mg tablet 12.5 mg PO Q6H PRN nausea and 06/26/25 vomiting #10 tabs Allergies Allergy/AdvReac Type Severity Reaction Status Date / Time No Known Drug Allergies Allergy Verified 06/26/25 14:59 PFSH PFSH Social History Little interest or pleasure in doing things: not at all Feeling down, depressed, or hopeless: not at all Exam Narrative Exam Narrative: Exam: * General: Alert, oriented, appears ill * HEENT: Dry oral mucosa * Vitals: Stable (not hypotensive, no tachycardia recorded) * Cardiac: Regular rhythm, no murmurs * Lungs: Clear bilaterally * Abdomen: Soft, tender in epigastrium/RUQ, no rebound/guarding * Neuro: No focal deficits, mentating appropriately * Skin: No rash, warm and well perfused Constitutional Vital Signs, click to edit/add: Last Vital Signs Temp 98.1 F 06/26/25 14:59 Pulse 89 06/26/25 21:35 Resp 16 06/26/25 14:59 BP 130/98 H 06/26/25 14:59 Pulse Ox 97 06/26/25 14:59 O2 Del Method Room Air 06/26/25 14:59 Course Reevaluation(s) Reevaluation #1: Stated on current lab findings. She states she was not feeling any better so I will progress her antiemetics to Phenergan. Time: 16:30 Reevaluation #2: Did find relief with the Phenergan. IV potassium has been initiated. Discussed with pharmacist prior to dosing. Does have elevated magnesium. She does appear to be quite dehydrated per her labs. Discussed with her the positive test. Also ordered an ultrasound of her right upper quadrant as well as pelvic ultrasound. Time: 17:30 Reevaluation #3: Ultrasounds have returned and questionable IUP but she only has an hCG of 800. I discussed this with the patient right upper quadrant ultrasound is normal. I also discussed this with the patient. I discussed admission with the patient she would like to try to go home. She did agree to stay for recheck of her BMP to make sure her labs are improving at least a little bit. She will also try p.o. challenge. She states she does feel much better and she does feel hungry. She agrees to this plan of care will reevaluate her after the plan above is completed. Time: 19:00 Additional Reevaluation(s): 2049: patients cmp returned with improved but not normal creatine and potassium. I discussed this with the patient and again offered admission. She would still like to go home and follow up with her PCP tomorrow. I discussed with her the importance of continued hydration. Vital Signs Vital signs: Vital Signs Temperature 98.1 F 06/26/25 14:59 Pulse Rate 107 H 06/26/25 14:59 Respiratory Rate 16 06/26/25 14:59 Blood Pressure 130/98 H 06/26/25 14:59 Pulse Oximetry 97 06/26/25 14:59 Oxygen Delivery Method Room Air 06/26/25 14:59 Temperature 98.1 F 06/26/25 14:59 Pulse Rate 89 06/26/25 21:35 Respiratory Rate 16 06/26/25 14:59 Blood Pressure 130/98 H 06/26/25 14:59 Pulse Oximetry 97 06/26/25 14:59 Oxygen Delivery Method Room Air 06/26/25 14:59 MDM - Nausea/Vomiting/Diarrhea MDM Narrative Medical decision making narrative: Diagnostics: * CBC: WBC 16.9 (leukocytosis) * CMP (initial): Na 130, K 2.4, BUN 34, Creatinine 1.41, Mg 2.6, ALT 74 * CMP (repeat after fluids): Na 133, K 3.0, BUN 27, Creatinine 1.17, (RAKESH improving with hydration), * UA: Cloudy, positive protein, leukocytes, large bacteria present * : Urine positive, hCG quant 876 * RUQ Ultrasound: Normal liver, gallbladder, and bile ducts; no hydronephrosis * Pelvic Ultrasound: Questionable 3 mm intrauterine gestational sac, no yolk sac or pole yet, cervix closed; both ovaries unremarkable; nabothian cysts present ED Course & Treatment: * 1L IV NS given with improvement in vitals and repeat chemistry * IV Zofran given with minimal relief * IV Compazine given with good symptom relief * IV potassium repletion administered as well as PO * PO challenge tolerated * Discussed at length her abnormal labs (hyponatremia, hypokalemia, RAKESH, elevated LFTs, bacteriuria, early ) and recommended admission for continued hydration, electrolyte monitoring, and observation. Patient declined admission after understanding risks and benefits. * Plan made for close outpatient follow-up. MDM: This is a patient with nausea/vomiting, significant electrolyte abnormalities (hypokalemia, hyponatremia), mild RAKESH, and leukocytosis, likely secondary to hyperemesis gravidarum with concurrent bacteriuria. RUQ ultrasound ruled out cholecystitis/obstruction. Pelvic ultrasound shows early intrauterine but viability not yet confirmed ? will need repeat ultrasound and hCG trending in 1?2 weeks. Given patient?s improvement with IV hydration and potassium replacement, stable vital signs, and successful oral challenge, outpatient management was deemed reasonable after shared decision-making. She was counseled extensively on the importance of aggressive oral hydration, repeating hCG and electrolytes soon, and urgent return for worsening symptoms. Impression: * Hyperemesis gravidarum * Early intrauterine (viability not confirmed) * Acute kidney injury, improving * Hypokalemia, improving * Hyponatremia, improving * Bacteriuria ? culture pending * Mild transaminitis (likely related to dehydration/illness) Medical Records Attestation: I reviewed the patient's medical records. Lab Data Attestation: I reviewed the patient's lab results. Labs: Lab Results 06/26/25 06/26/25 06/26/25 Range/Units 15:18 15:24 20:04 WBC 16.9 H (4.0-11.0) 10^3/uL RBC 4.81 (4.20-5.40) 10^6/uL Hgb 14.7 (12.0-16.0) g/dL Hct 40.7 (36.0-48.0) % MCV 84.6 (81.0-99.0) fL MCH 30.6 (26.7-34.0) pg MCHC 36.1 H (29.9-35.2) g/dL RDW 12.6 (11.0-15.0) % Plt Count 497 H (150-450) 10^3/uL MPV 9.7 (9.5-13.5) fL Neut % (Auto) 75.8 H (43.0-75.0) % Lymph % (Auto) 14.0 L (20.5-60.0) % [place] % (Auto) 8.0 (1.7-12.0) % Eos % (Auto) 0.9 (0.9-7.0) % Baso % (Auto) 0.4 (0.2-2.0) % Neut # (Auto) 12.8 H (1.4-6.5) 10^3/uL Lymph # (Auto) 2.4 (1.2-3.8) 10^3/uL [place] # (Auto) 1.4 H (0.3-0.8) 10^3/uL Eos # (Auto) 0.2 (0.0-0.7) 10^3/uL Baso # (Auto) 0.1 (0.0-0.1) 10^3/uL Abs Immat Gran (auto) 0.16 H (0.00-0.03) 10^3/uL Imm/Tot Granulo (auto) 0.9 H (0.0-0.5) % Sodium 130 L 133 L (136-145) mmol/L Potassium 2.4 L* 3.0 L (3.5-5.1) mmol/L Chloride 90 L 95 L (98-107) mmol/L Carbon Dioxide 27.5 29.3 (21.0-32.0) mmol/L Anion Gap 14.9 11.7 BUN 34.0 H 27.0 H (7.0-18.0) mg/dL Creatinine 1.41 H 1.17 H (0.55-1.02) mg/dL Est GFR ( Amer) 55 L >60 (>=60 mL/min/1.73m^2) Est GFR (Non-Af Amer) 45 L 56 L (>=60 mL/min/1.73m^2) BUN/Creatinine Ratio 24.1 23.1 Glucose 142 H 104 (74-106) mg/dL Calcium 9.4 9.0 (8.5-10.1) mg/dL Magnesium 2.6 H (1.8-2.4) mg/dL Total Bilirubin 0.8 0.7 (0.2-1.0) mg/dL AST 38 H 31 (15-37) U/L ALT 74 H 73 H (14-59) U/L Alkaline Phosphatase 86 78 (46-116) U/L Total Protein 9.5 H 8.8 H (6.4-8.2) g/dL Albumin 4.7 4.4 (3.4-5.0) g/dL Globulin 4.8 4.4 g/dL Albumin/Globulin Ratio 1.0 1.0 Lipase 54.0 (16.0-77.0) U/L HCG, Quant 876 mIU/mL Urine Color Lt. yellow (YELLOW) Urine Clarity Cloudy A (CLEAR) Urine pH 6.0 (5.0-9.0) Ur Specific [place] 1.020 (1.005-1.025) Urine Protein 100 A (NEG/TRACE) mg/dL Urine Glucose (UA) Negative (NEGATIVE) mg/dL Urine Ketones Negative (NEGATIVE) mg/dL Urine Occult Blood Trace-i (NEGATIVE) Urine Nitrite Negative (NEGATIVE) Urine Bilirubin Negative (NEGATIVE) Urine Urobilinogen 1.0 (0.2-1.0) EU/dL Ur Leukocyte Esterase Small A (NEGATIVE) Urine RBC 0-2 (0-2) #/HPF Urine WBC 2-5 A (NONE SEEN) #/HPF Ur Squamous Epith Cells Many A (NONE/RARE) #/LPF Urine Crystals None seen (None Seen) #/HPF Urine Bacteria Large A (NONE SEEN) #/HPF Urine Casts None seen (NONE SEEN) #/LPF Urine Mucus None seen (NONE SEEN) Ur [place] Indicated[place] [place] H[place], Qual Positive A (NEGATIVE) Imaging Data US - abdomen: Radiologist's impression: ITS Impressions Upper Quadrant Ultrasound 06/26/25 15:08 IMPRESSION: Obscured pancreas. Otherwise grossly unremarkable right upper quadrant ultrasound. Impression dictated by: Jason Winn M.D. 06/26/2025 7:29 PM Dictation Location: [place] [address] Electronically authenticated by: [id number] Y Date: 06/26/2025 19:29 Transvaginal US 06/26/25 16:45 IMPRESSION: Questionable intrauterine gestational sac 3 mm in size. Recommend short-term follow-up to confirm viability. Impression dictated by: Jason Winn M.D. 06/26/2025 7:31 PM Dictation Location: [place] [address] Electronically authenticated by: [id number] Y Date: 06/26/2025 19:31 Discharge Plan Discharge Chief Complaint: Nausea/Vomiting/Diarrhea Clinical Impression: Hyperemesis gravidarum, Hypokalemia, RAKESH (acute kidney injury), Acute dehydration, Early stage of , Bacteriuria, History of miscarriage Patient Disposition: Home, Self-Care Time of Disposition Decision: 21:19 Condition: Good Prescriptions / Home Meds: New promethazine 12.5 mg tablet 12.5 mg PO Q6H PRN (Reason: nausea and vomiting) Qty: 10 0RF potassium chloride 10 mEq tablet extended release 10 meq PO BID 4 Days Qty: 8 0RF Rx Instructions: recheck potassium in 4 days nitrofurantoin monohyd/m-cryst [Macrobid] 100 mg capsule 100 mg PO BID 5 Days Qty: 10 0RF Rx Instructions: must administer with a meal/food No Action paroxetine HCl 40 mg tablet 40 mg PO DAILY buspirone 7.5 mg tablet 7.5 mg PO BID levetiracetam 500 mg tablet 1,500 mg PO Q12H venlafaxine 37.5 mg capsule,extended release 24hr 37.5 mg PO DAILY Print Language: Swiss Instructions: Hyperemesis Gravidarum (ED), Dehydration (ED), Acute Kidney Injury (DC), Potassium Content of Foods List (ED), Hypokalemia (ED), Urinary Tract Infection in (ED), at 7 to 10 Weeks (ED) Additional Instructions: After Visit Summary ? Hyperemesis in Early What We Found Today: * You are early in ; a very small gestational sac was seen. * Labs showed dehydration and low potassium, which are improving. * Your urine had bacteria ? culture pending. What To Do At Home: * Hydrate frequently (water, Pedialyte) * Eat small, bland meals * Take anti-nausea medications as prescribed * Rest and avoid triggers for nausea Return to ED Immediately If: * Vomiting persists and you cannot keep fluids down * Vaginal bleeding or cramping * Dizziness, fainting, or worsening weakness * Fever, chills, or worsening pain Follow-Up: * Call OB tomorrow for follow-up and repeat hCG/ultrasound * Monitor urine culture results and electrolytes Referrals: Jhonathan Montgomery DO [Physician, [employer]] - As soon as possible Referral Note: Call tomorrow Russ Arias ND [Primary Care Provider] - 1 week Discharge Date/Time: 06/26/25 21:36
--- NOTE | 2025-06-26 16:45 | US_ITS ---
[address] [address] Patient Name: SHERI BOOTHE MRN: [id number] date: 2000 Sex: F Assigned Patient Location: ER Current Patient Location: ER Accession/Order Number: [id number] Exam Date: 06/26/2025 18:00 Report Date: 06/26/2025 19:31 At the request of: TRESSA RIVERO Procedure: US OB transvaginal Obstetric ultrasound INDICATION: abdominal pain COMPARISON: None FINDINGS: Uterus anteverted. Within the uterus there is a questionable gestational sac, 3 x 1 x 2 mm in size.. No yolk sac or pole identified. Right ovary 3.9 x 2.4 x 2.4 smears in size. Unremarkable. Left ovary 2.6 x 3.0 x 3.1 cm in size. Unremarkable. Cervix closed 2.8 cm. Likely nabothian cysts within cervix. US/US OB transvaginal IMPRESSION: Questionable intrauterine gestational sac 3 mm in size. Recommend short-term follow-up to confirm viability. Impression dictated by: Jason Winn M.D. 06/26/2025 7:31 PM Dictation Location: [place] [address] Electronically authenticated by: [id number] Y Date: 06/26/2025 19:31
[2025-06-26] MEDS: PROMETHAZINE HCL 12.5 MG in 0.9 % SODIUM CHLORIDE 50 ML 202 MG IV (16:52)
[2025-06-26] MEDS: POTASSIUM CHLORIDE IN WATER 10 MEQ/100 ML PREMIX 100 MEQ IV ×2 (17:08→18:18)
[2025-06-26] MEDS: POTASSIUM CHLORIDE 10 MEQ ER TABLET 40 MEQ PO (19:46)
[2025-06-26 20:45] LABS: Alanine Aminotransferase 73 U/L (14-59); Albumin Globulin Ratio 1.0; Albumin Level 4.4 g/dL (3.4-5.0); Alkaline Phosphatase 78 U/L (46-116); Anion Gap 11.7; Aspartate Amino Transferase 31 U/L (15-37); Blood Urea Nitrogen 27.0 mg/dL (7.0-18.0); Calcium 9.0 mg/dL (8.5-10.1); Carbon Dioxide 29.3 mmol/L (21.0-32.0); Chloride 95 mmol/L (98-107); Estimated GFR (African America >60 (>=60 mL/min/1.73m^2); Estimated GFR (Non-African Ame 56 (>=60 mL/min/1.73m^2); Globulin 4.4 g/dL; Glucose 104 mg/dL (74-106); Potassium 3.0 mmol/L (3.5-5.1); Sodium 133 mmol/L (136-145); Total Protein 8.8 g/dL (6.4-8.2)
[2025-06-26 21:35] VITALS: PULSE 89
== END 2025-06-26 21:36 | disposition home or self-care (01) ==
PROVIDERS: Physician Assistant; Emergency Provider Emergency Medicine; PCP Student in an Organized Health Care Education/Training Program
DX: O21.1 Hyperemesis gravidarum with metabolic disturbance (principal); Z3A.00 Weeks of gestation of pregnancy not specified; O99.891 Other specified diseases and conditions complicating pregnancy; R82.71 Bacteriuria; N17.9 Acute kidney failure, unspecified; Z87.59 Personal history of other complications of pregnancy, childbirth and the puerperium
CPT/HCPCS: 36415; 76705; 76817; 80053; 81001; 83690; 83735; 84702; 84703; 85025; 87086; 96361; 96365; 96366; 96375; 99285; J2405; J2550; J3480

== ENCOUNTER 2025-08-23 19:53 | Emergency (ER) | payer OTHER, SELFPAY ==
[2025-08-23] VITALS (10 sets, daily range): BP systolic 135; BP diastolic 83; PULSE 76–117; TEMP 36.1; O2SAT 95–99; BMI 35.4
--- NOTE | 2025-08-23 20:01 | CT_ITS ---
[address] [address] Patient Name: SHERI ALCALA MRN: [id number] date: 2000 Sex: F Assigned Patient Location: ED.MAIN Current Patient Location: ED.MAIN Accession/Order Number: [id number] Exam Date: 08/23/2025 21:10 Report Date: 08/23/2025 21:38 At the request of: EDGAR RIVERO Procedure: CT cervical spine wo con Unenhanced head CT TECHNIQUE: Contiguous axial imaging of the head. The CT exam was performed using one or more the following dose reduction techniques: Automated exposure control, adjustment of the MA and/or Kv according to patient size, or use of the iterative reconstruction technique. COMPARISON: None HISTORY: Seizure. Fell. VENTRICLES: Within normal limits ATROPHY: None BRAIN PARENCHYMA: Adequate blank-white matter differentiation identified. HEMORRHAGE: None HERNIATION: No mass effect or herniation INFARCTION: No recent vascular distribution infarction is seen. EXTRA-AXIAL FLUID COLLECTIONS None MIDBRAIN: Unremarkable ERIK: Unremarkable MEDULLA: Unremarkable SINUSES: Unremarkable ORBITS: Grossly unremarkable MASTOIDS: Unremarkable BONY STRUCTURES Intact ADDITIONAL FINDINGS: CT/CT head/brain wo con IMPRESSION: No acute findings. CT Cervical Spine withoutcontrast TECHNIQUE: Axial imaging with 2-D and 3-D reconstruction. The CT exam was performed using one or more the following dose reduction techniques: Automated exposure control, adjustment of the MA and/or Kv according to patient size, or use of the iterative reconstruction technique. COMPARISON: None HISTORY: Seizure. Fell. Headache POST SURGERY CHANGES: None BONY ALIGNMENT: Adequate BONY SPINAL CANAL: Patent central bony canal FRACTURE: None BONY LESIONS: None SOFT TISSUES: Unremarkable DEGENERATIVE CHANGES: None LUNG APICES: Unremarkable ADDITIONAL FINDINGS: IMPRESSION: No acute process Impression dictated by: Weston Pierre M.D. 08/23/2025 9:38 PM Dictation Location: [place] [address] Electronically authenticated by: [id number] Y Date: 08/23/2025 21:38
--- NOTE | 2025-08-23 20:02 | ECG_ITS ---
[facility] Test Date: 2025-08-23 Pat Name: SHERI ALCALA Department: Room: - Gender: Female [employer]: : 2000 Requested By: [id number] Order Number: [id number] Reading MD: CLYDE ESPINAL M.D. Measurements Intervals [place] Rate: 107 P: 38 NE: 164 QRS: 99 QRSD: 90 T: 11 QT: 332 QTc: 395 Interpretive Statements 1120 Sinus tachycardia 4068 Nonspecific Twave abnormality 7102 Moderate right axis deviation 9140 abnormal rhythm ECG Compared to ECG 07/01/2024 06:41, Heart rate has increased by 24 BPM Nonspecific T wave changes now present Electronically Signed On 08-24-2025 6:12:18 EST by CLYDE ESPINAL M.D.
--- NOTE | 2025-08-23 20:02 | CT_ITS ---
[address] [address] Patient Name: SHERI ALCALA MRN: [id number] date: 2000 Sex: F Assigned Patient Location: ED.MAIN Current Patient Location: ED.MAIN Accession/Order Number: [id number] Exam Date: 08/23/2025 21:10 Report Date: 08/23/2025 21:38 At the request of: EDGAR RIVERO Procedure: CT cervical spine wo con Unenhanced head CT TECHNIQUE: Contiguous axial imaging of the head. The CT exam was performed using one or more the following dose reduction techniques: Automated exposure control, adjustment of the MA and/or Kv according to patient size, or use of the iterative reconstruction technique. COMPARISON: None HISTORY: Seizure. Fell. VENTRICLES: Within normal limits ATROPHY: None BRAIN PARENCHYMA: Adequate blank-white matter differentiation identified. HEMORRHAGE: None HERNIATION: No mass effect or herniation INFARCTION: No recent vascular distribution infarction is seen. EXTRA-AXIAL FLUID COLLECTIONS None MIDBRAIN: Unremarkable ERIK: Unremarkable MEDULLA: Unremarkable SINUSES: Unremarkable ORBITS: Grossly unremarkable MASTOIDS: Unremarkable BONY STRUCTURES Intact ADDITIONAL FINDINGS: CT/CT cervical spine wo con IMPRESSION: No acute findings. CT Cervical Spine withoutcontrast TECHNIQUE: Axial imaging with 2-D and 3-D reconstruction. The CT exam was performed using one or more the following dose reduction techniques: Automated exposure control, adjustment of the MA and/or Kv according to patient size, or use of the iterative reconstruction technique. COMPARISON: None HISTORY: Seizure. Fell. Headache POST SURGERY CHANGES: None BONY ALIGNMENT: Adequate BONY SPINAL CANAL: Patent central bony canal FRACTURE: None BONY LESIONS: None SOFT TISSUES: Unremarkable DEGENERATIVE CHANGES: None LUNG APICES: Unremarkable ADDITIONAL FINDINGS: IMPRESSION: No acute process Impression dictated by: Weston Pierre M.D. 08/23/2025 9:38 PM Dictation Location: [place] [address] Electronically authenticated by: [id number] Y Date: 08/23/2025 21:38
--- NOTE | 2025-08-23 20:04 | ED.GENADUL1 ---
HPI HPI - General Adult General Chief complaint: Seizure Stated complaint: SEIZURE Time Seen by Provider: 08/23/25 20:01 Source: patient Mode of arrival: ambulance History of Present Illness HPI narrative: This is a 25-year-old female with a PMH of epilepsy that presents to the emergency department via EMS with complaints of seizure while she was in the shower. She did hit her head. She does take Keppra and has not missed a dose. She is unsure when her last seizure was. She denies any recent illness or medication changes. Per EMS she had been vomiting all day, when they reached her she was postictal. She cannot remember the name of her neurologist, he is in [place]. Related Data Home Medications ?Medication ?Instructions ?Recorded ?Confirmed paroxetine HCl 40 mg tablet 40 mg PO DAILY 07/01/24 06/26/25 buspirone 7.5 mg tablet 7.5 mg PO BID 06/26/25 06/26/25 levetiracetam 500 mg tablet 1,500 mg PO Q12H 06/26/25 06/26/25 venlafaxine 37.5 mg 37.5 mg PO DAILY 06/26/25 06/26/25 capsule,extended release 24 hr Previous Rx's ?Medication ?Instructions ?Recorded nitrofurantoin 100 mg PO BID 5 days #10 caps 06/26/25 monohydrate/macrocrystals 100 mg capsule (Macrobid) potassium chloride 10 mEq 10 meq PO BID 4 days #8 tabs 06/26/25 tablet,extended release promethazine 12.5 mg tablet 12.5 mg PO Q6H PRN nausea and 06/26/25 vomiting #10 tabs Allergies Allergy/AdvReac Type Severity Reaction Status Date / Time No Known Drug Allergies Allergy Verified 06/26/25 14:59 Opioid HPI Opioid Management Most Recent Opioid Data: Last Pain Scale 8 06/26/25, 15:10 Ur Phencyclidine Scrn, (NEGATIVE) Negative 08/23/25, 21:34 Review of Systems ROS Status of ROS 10 or more systems reviewed and unremarkable except as noted in history and below PFS PFS Social History Little interest or pleasure in doing things: not at all Feeling down, depressed, or hopeless: not at all Exam Narrative Exam Narrative: General: No distress, diaphoretic, age-appropriate Skin: Warm, dry, no pallor. No rash. Head: Normocephalic, abrasion to left side of jaw, non tender, no trismus, no jaw malocclusion Neck: Supple, non-tender. Eye: Pupils are equal, round and EOMI. No scleral icterus. Ears, Nose, Mouth, and Throat: No nasal mucosal hypertrophy. Oral mucosa is moist, no posterior oropharynx erythema, uvula is mid-line Cardiovascular: Regular Rate and Rhythm without murmur, gallop or rub. Respiratory: No accessory muscle use or respiratory distress. Lungs are clear to auscultation, no wheezing, rales or rhonchi Chest Wall: no tenderness Back: No midline thoracic or lumbar vertebral tenderness. Musculoskeletal: Full ROM of all extremities, no calf or popliteal tenderness. GI: Abdomen is soft, non-distended, non tender to palpation. No masses appreciated. No rebound, guarding, or rigidity noted. Neurological: A&O x4. No cranial nerve dysfunction observed. No truncal ataxia. Moves all extremities. Sensation intact. Psychiatric: Cooperative and interactive. Normal mood and affect. Constitutional Vital Signs, click to edit/add: Last Vital Signs Temp 97.0 F L 08/23/25 19:54 Pulse 91 H 08/23/25 21:33 Resp 7 L 08/23/25 21:33 BP 135/83 08/23/25 19:54 Pulse Ox 98 08/23/25 21:00 O2 Del Method Room Air 08/23/25 19:54 Documenting provider has reviewed patient's vital signs: yes Course Vital Signs Vital signs: Vital Signs Temperature 97.0 F L 08/23/25 19:54 Pulse Rate 84 08/23/25 19:54 Respiratory Rate 16 08/23/25 19:54 Blood Pressure 135/83 08/23/25 19:54 Pulse Oximetry 95 08/23/25 19:54 Oxygen Delivery Method Room Air 08/23/25 19:54 Temperature 97.0 F L 08/23/25 19:54 Pulse Rate 91 H 08/23/25 21:33 Respiratory Rate 7 L 08/23/25 21:33 Blood Pressure 135/83 08/23/25 19:54 Pulse Oximetry 98 08/23/25 21:00 Oxygen Delivery Method Room Air 08/23/25 19:54 Medical Decision Making MDM Narrative Medical decision making narrative: Patient is a 25-year-old female with a history of epilepsy who presented to the ED via EMS postictal after an unwitnessed seizure in the shower with head strike.She is on Keppra and states she has not missed a dose. She is unsure when her last seizure was. Upon chart review here it was a year ago that she had presented here with a seizure. Patient had been vomiting she reports since last night.She states she has had chronic abdominal pain and vomiting intermittently for about 2 years. Upon review of her records she was just seen in this ED in June for abdominal pain, N/V/D and was . She states she did have a miscarriage. hCG negative today. IV placed. Zofran 4mg IV given. CBC, CMP, UDS, EtOH, hCG, CT head and cervical spine ordered. Labs significant for hypokalemia (K 2.9), RAKESH (Cr 1.8, GFR 33), leukocytosis (WBC 21k, 90% neutrophils) which is possibly reactive to seizure, and mild transaminitis (AST 54, ALT 109, Alk Phos 121). Imaging including CT head and cervical spine was negative for acute traumatic injury. In the ED, Keppra was ordered, 40 mEq of potassium and 1L NS ordered. During serial re-examinations, the patient became tearful and requested to leave to take a shower, reporting that it helps alleviate her nausea and abdominal pain. The risks, benefits, and potential consequences of leaving against medical advice (AMA) were thoroughly discussed, including: Potential worsening of electrolyte disturbances (hypokalemia, RAKESH) Risk of recurrent seizure or status epilepticus Need for continued IV hydration and monitoring Possible undiagnosed infection contributing to leukocytosis The patient verbalized understanding of the above risks and chose to leave AMA. She was counseled on strict return precautions: Recurrent seizure, prolonged postictal state, worsening vomiting, abdominal pain, dizziness, or new neurologic symptoms Return immediately for chest pain, shortness of breath, or any acute deterioration The patient verbalized understanding and acknowledgement of risks. AMA discussion, patient understanding, and patient decision documented.Patient left AMA before receiving Keppra dose, potassium, or IV fluids. Differential Diagnosis Differential Diagnosis: Breakthrough seizure, electrolyte abnormalities, head trauma Lab Data Lab results reviewed: Yes I reviewed the patient's lab results Labs: Lab Results 08/23/25 08/23/25 Range/Units 20:32 21:34 WBC 21.8 H (4.0-11.0) 10^3/uL RBC 4.95 (4.20-5.40) 10^6/uL Hgb 14.7 (12.0-16.0) g/dL Hct 44.1 (36.0-48.0) % MCV 89.1 (81.0-99.0) fL MCH 29.7 (26.7-34.0) pg MCHC 33.3 (29.9-35.2) g/dL RDW 12.7 (11.0-15.0) % Plt Count 456 H (150-450) 10^3/uL MPV 9.8 (9.5-13.5) fL Neut % (Auto) 90.0 H (43.0-75.0) % Lymph % (Auto) 5.3 L (20.5-60.0) % Dillon % (Auto) 3.2 (1.7-12.0) % Eos % (Auto) 0.0 L (0.9-7.0) % Baso % (Auto) 0.3 (0.2-2.0) % Neut # (Auto) 19.6 H (1.4-6.5) 10^3/uL Lymph # (Auto) 1.2 (1.2-3.8) 10^3/uL Dillon # (Auto) 0.7 (0.3-0.8) 10^3/uL Eos # (Auto) 0.0 (0.0-0.7) 10^3/uL Baso # (Auto) 0.1 (0.0-0.1) 10^3/uL Abs Immat Gran (auto) 0.26 H (0.00-0.03) 10^3/uL Imm/Tot Granulo (auto) 1.2 H (0.0-0.5) % Sodium 137 (136-145) mmol/L Potassium 2.9 L* (3.5-5.1) mmol/L Chloride 96 L (98-107) mmol/L Carbon Dioxide 24.3 (21.0-32.0) mmol/L Anion Gap 19.6 BUN 17.0 (7.0-18.0) mg/dL Creatinine 1.86 H (0.55-1.02) mg/dL Est GFR ( Amer) 40 L (>=60 mL/min/1.73m^2) Est GFR (Non-Af Amer) 33 L (>=60 mL/min/1.73m^2) BUN/Creatinine Ratio 9.1 Glucose 192 H (74-106) mg/dL Calcium 10.0 (8.5-10.1) mg/dL Total Bilirubin 0.3 (0.2-1.0) mg/dL AST 54 H (15-37) U/L ALT 109 H (14-59) U/L Alkaline Phosphatase 121 H (46-116) U/L Total Protein 9.5 H (6.4-8.2) g/dL Albumin 4.8 (3.4-5.0) g/dL Globulin 4.7 g/dL Albumin/Globulin Ratio 1.0 Serum HCG, Qual Negative (NEGATIVE) Urine Opiates Screen Negative (NEGATIVE) Ur Buprenorphine Scrn Negative (NEGATIVE) Ur Oxycodone Screen Negative (NEGATIVE) Urine Methadone Screen Negative (NEGATIVE) Ur Barbiturates Screen Negative (NEGATIVE) U Tricyclic Antidepress Negative (NEGATIVE) Ur Phencyclidine Scrn Negative (NEGATIVE) Ur Amphetamines Screen Negative (NEGATIVE) U Methamphetamines Scrn Negative (NEGATIVE) U Benzodiazepines Scrn Negative (NEGATIVE) Urine Cocaine Screen Negative (NEGATIVE) U Cannabinoids Screen Positive A (NEGATIVE) Imaging Data CT scan - head: Attestation: I have reviewed the pertinent imaging results. Radiologist's impression: ITS Impressions Head CT 08/23/25 20:01 IMPRESSION: No acute findings. CT Cervical Spine withoutcontrast TECHNIQUE: Axial imaging with 2-D and 3-D reconstruction. The CT exam was performed using one or more the following dose reduction techniques: Automated exposure control, adjustment of the MA and/or Kv according to patient size, or use of the iterative reconstruction technique. COMPARISON: None HISTORY: Seizure. Fell. Headache POST SURGERY CHANGES: None BONY ALIGNMENT: Adequate BONY SPINAL CANAL: Patent central bony canal FRACTURE: None BONY LESIONS: None SOFT TISSUES: Unremarkable DEGENERATIVE CHANGES: None LUNG APICES: Unremarkable ADDITIONAL FINDINGS: IMPRESSION: No acute process Impression dictated by: Weston Pierre M.D. 08/23/2025 9:38 PM Dictation Location: Share0 Electronically authenticated by: [id number] Y Date: 08/23/2025 21:[address] 08/23/25 20:02 IMPRESSION: No acute findings. CT Cervical Spine withoutcontrast TECHNIQUE: Axial imaging with 2-D and 3-D reconstruction. The CT exam was performed using one or more the following dose reduction techniques: Automated exposure control, adjustment of the MA and/or Kv according to patient size, or use of the iterative reconstruction technique. COMPARISON: None HISTORY: Seizure. Fell. Headache POST SURGERY CHANGES: None BONY ALIGNMENT: Adequate BONY SPINAL CANAL: Patent central bony canal FRACTURE: None BONY LESIONS: None SOFT TISSUES: Unremarkable DEGENERATIVE CHANGES: None LUNG APICES: Unremarkable ADDITIONAL FINDINGS: IMPRESSION: No acute process Impression dictated by: Weston Pierre M.D. 08/23/2025 9:38 PM Dictation Location: Share0 Electronically authenticated by: [id number] Y Date: 08/23/2025 21:38 ECG Data Attestation: ?I have reviewed the pertinent ECG results. Discharge Plan Discharge Stand Alone Forms: Portal Instructions Chief Complaint: Seizure Clinical Impression: Breakthrough seizure, Hypokalemia, RAKESH (acute kidney injury), Transaminitis Patient Disposition: Left Against Medical Advice Time of Disposition Decision: 22:07 Condition: Fair Mode of Transportation: Private Vehicle Prescriptions / Home Meds: No Action paroxetine HCl 40 mg tablet 40 mg PO DAILY buspirone 7.5 mg tablet 7.5 mg PO BID levetiracetam 500 mg tablet 1,500 mg PO Q12H venlafaxine 37.5 mg capsule,extended release 24hr 37.5 mg PO DAILY promethazine 12.5 mg tablet 12.5 mg PO Q6H PRN (Reason: nausea and vomiting) Qty: 10 0RF potassium chloride 10 mEq tablet extended release 10 meq PO BID 4 Days Qty: 8 0RF Rx Instructions: recheck potassium in 4 days nitrofurantoin monohyd/m-cryst [Macrobid] 100 mg capsule 100 mg PO BID 5 Days Qty: 10 0RF Rx Instructions: must administer with a meal/food Print Language: Vietnamese Instructions: Acute Kidney Injury (DC), Hypokalemia (ED), Epilepsy (ED) Referrals: Hugo,Muhamid, [place] [Primary Care Provider] - 1 week Discharge Date/Time: 08/23/25 22:18
--- OUTSIDE RECORDS SUMMARY | 2025-08-23 20:16 | XMS_ITS | CCD ---
Author Organization [facility] Care Team Providers Care Personal Development Educator Name Role Phone REQUEST, DR NONE LISTED Primary Care Unavaila van SUAREZ, DR AMADOR Admitting Unavailable ERICK, DR AMADOR Attending Unavailable ERICK, DR AMADOR Consulting Unavailable Barb Woodard Unavailable CEE JIANG Referring Unavailable CEE JIANG Attending Unavailable CELINA PARKER Attending Unavailable CELINA PARKER Attending Unavailable CELINA PARKER Attending Unavailable MD Ottoniel Arias Primary Care Provider [phone] MD Obie Harley Admit Provider [phone] MD Obie Harley Attending Provider Ottoniel Arias MD Primary Care Provider [phone] Ottoniel Arias MD Primary Care Provider [phone] JES RAMOS I Attending Unavailable UHGO, MUHAMID M Primary Care Unavailable LEIGHA HERZOG [...] Care Unavailable ([facility] ONLY), NEURO-CONSULTING Consulting Amada vaOLIVERIO Phillips Attending Unavailable DEANGELO MERRILL Consulting Unavailable ARUNA QUINONES Consulting Unavailab MARJORIE Zamora Consulting Unavailable DOUGIE, AVNI Consulting Unavailable DOUGIE, AVNI M Consulting Unavailable NOAH VASQUEZ Consulting Unavailable ZAFAR CLINE Referring Unavailable HUGO, MUHAMID M Primary Care Unavailable Hugo MD Virgilruthieid Jazz Primary Care Provider Hugo Ottoniel PANG Primary Care Provider Hugo Ottoniel PANG Primary Care Provider [facility] Provider Donavon Montalvo MD Attending Provider [phone] Francisco Chaidez PA-C Attending Provider MEGHA BRAGG Attending Unavailable HUGO, MUHAMID M Referring Unavailable HUGO, MUHAMID M Primary Care Unavailable HUGO, MUHAMID M Primary Care Unavailable SUBHASH CHIN Attending Unavailab JANAY Alvarez Referring Unavailable HUGO, MUHAMID M Primary Care Unavailable HUGO, MUHAMID M Primary Care Unavailable GUSTABO ANGUIANO Attending Unavailable HUGO, MUHAMID M Primary Care Unavailable ANNMARIE SANCHEZ Attending Unavailable BRYANT HINES Referring Unavailable HUGO, MUHAMID M Primary Care Unavailable SHARON LYNCH Referring Unavailable HUGO, MUHAMID M Primary Care Unavailable HUGO, MUHAMID M Primary Care Unavailable FAMILIA HARGROVE Attending Unavailable HUGO, MUHAMID M Admitting Unavailable INPATIENT, TELENEUROLOGY Consulting Unavail able JANAY MUSTAFA Attending Unavailable HUGO, MUHAMID M Referring Unavailable HUGO, MUHAMID M Primary Care Unavailable HUGO, MUHAMID M Referring Unavailable HUGO, MUHAMID M Primary Care Unavailable BRYANT HINES Attending Unavailable HUGO, MUHAMID M Referring Unavailable HUGO, MUHAMID M Primary Care Unavailable BRYANT HINES Attending Unavailable HUGO, MUHAMID M Referring Unavailable HUGO, MUHAMID M Primary Care Unavailable BRYANT HINES Attending Unavailable LYNCHSHARON Attending Unavailable HUGO, MUHAMID M Referring Unavailable HUGO, MUHAMID M Primary Care Unavailable HUGO, MUHAMID M Referring Unavailable HUGO, MUHAMID M Primary Care Unavailable BRYANT HINES Attending Unavailable HUGO, MUHAMID Primary Care Unavailable POOL, JENNIFER E Referring Unavailable HUGO, MUHAMID Primary Care Unavailable HUGO, MUHAMID Primary Care Unavailable POOL, JENNIFER E Referring Unavailable HUGO, MUHAMID Primary Care Unavailable POOL, JENNIFER E Referring Unavailable IACOB, TRINY Admitting Unavailable SETH DUMASFAN Attending Unavailable HUGO, MUHAMID Primary Care Unavailable HUGO, MUHAMID Primary Care Unavailable HUGO, MUHAMID Primary Care Unavailable Francisco Chaidez Attending Unavailable Francisco Chaidez Admitting Unavailable Donavon Montalvo Attending Unavailab le Donavon Montalvo Admitting Unavailab le Hugo, Muhamid Primary Care Unavailable Medications Current Medications MedicationDrug Class(es)DatesSig (Normalized)Sig (Original)Acetaminophen (3 sources)Start: 94-75-4539orsyckynusihn (TYLENOL) tablet 650 mgStart: 94-59-3295cvhw 500 mg by mouth every six hours as needed for pain and fever and headacheStart: 11-05-2024 End: 52-69-6276MOQStxmyklnw 15 mg oral tablet (17 sources)Atypical AntipsychoticStart: 45-71-2458divx 0.5 tablet by mouth in the morningARIPiprazole (ABILIFY) 15 mg tablet Take 0.5 tablets (7.5 mg total) by mouth in the morning. 10/14/2024 ActiveStart: 10-14-2024 End: 27-26-0070opwt 1 tablet by mouth in the morningARIPiprazole (ABILIFY) 2 mg tablet Take 1 tablet (2 mg total) by mouth in the morning. 10/14/2024 Active Start: 10-07-2084tsdr 1 tablet by mouth once dailyARIPiprazole (ABILIFY) 5 MG tablet Take 1 tablet by mouth daily Activebenzocaine 200 mg/ml mucosal spray (1 source)Standardized Chemical AllergenStart: 92-49-1108ynbLFYkxo hydrochloride 5 mg oral tablet (8 sources)Start: 56-38-9756rcxDYOrcq (BUSPAR) 5 mg tablet Take 1 tablet (5 mg total) by mouth. 03/01/2025 ActivebusPIRone HCl (BUSPAR PO) Take by mouth in the morning and at bedtime ActivebusPIRone HCl (BUSPAR PO) Take by mouth in the morning and at bedtime Suspendedcalcium chloride 0.0014 meq/ml / potassium chloride 0.004 meq/ml / sodium chloride 0.103 meq/ml / sodium lactate 0.028 meq/ml injectable solution (5 sources)Start: 11-05-2024 End: ml calcium gluconate 20 mg/ml injection (1 source)Start: 85-69-2903xdrkdnivui propionate 0.0005 mg/mg topical ointment (8 sources)CorticosteroidStart: 01-45-0840owdfwxdarT (TEMOVATE) 0.05 % ointment Indications: Eczema of right hand Apply 1 Application topically nightly. 30 g 11/22/2024 Activeergocalciferol 1.25 mg oral capsule (2 sources)Provitamin D2 CompoundStart: 25-32-8600xfxn 1 capsule by mouth once famotidine (PEPCID) 20 MG/2ML 20 mg in sodium chloride (PF) 0.9 % 10 mL injection (1 source)Start: 80-14-1472cgfi 10 mL intravenously once daily20 mg, IntraVENous, DAILY, First dose on Thu04/25/25 at 1815, Until Discontinued, IV Push over minimum of 2 minutes - Dilute with 10 mL NSfolic acid 1 mg oral tablet (2 sources)Start: 93-78-5225mgfp 1 tablet by mouth once dailyglucagon (rdna) 1 mg injection (1 source)Antihypoglycemic AgentStart: ml glucose 500 mg/ml prefilled syringe (2 sources)Start: 24-93-2245Lornu: ml glucose 50 mg/ml / potassium chloride 0.02 meq/ml / sodium chloride 4.5 mg/ml injection (1 source)Start: 91-18-2912JaovoVNPlsp, at 100 mL/hr, CONTINUOUS, Starting [place] Thu04/26/25 [place] [address]241 ml heparin sodium, porcine 5000 unt/ml injection (1 source)Unfractionated Heparin, Anti-coagulantStart: 46-29-5071nebqlayflu 100 mg oral tablet (8 sources)Anti-epileptic AgentStart: 11-12-2024 End: 58-24-6872lxko 1 tablet by mouth in the morning, then take 1 tablet by mouth at bedtimelacosamide (VIMPAT) 100 mg tablet Indications: Seizure (CMS-HCC) Take 1 tablet (100 mg total) by mouth in the morning and 1 tablet (100 mg total) before bedtime. Do all this for 30 days. 60 tablet 11/12/2024 12/12/2024 Active Start: 11-12-2024 End: 35-48-1891Vnfrh: 53-14-1089kethkbma lactate 120 mg/ml topical cream (17 sources)Start: 65-21-7551oxkdxlsf lactate (AMLACTIN) 12 % cream Apply 1 Application topically 2 times daily 11/12/2024 Odnxrk66 ml magnesium sulfate 40 mg/ml injection (4 sources)Start: 30-09-1486Noaqe: 06-79-6102Sdwzg: 11-07-2024 End: 11-94-8895zpnmcyqomzmzlg 10 mg oral tablet (1 source)Dopamine-2 Receptor AntagonistStart: 92-81-6394Cbhlmb 10 MG 1 Tablet Orally 2-3 times per day prn nausea and vomiting 18 Jul, 2023 Hxjcfn95 hr nicotine 0.583 mg/hr transdermal system (1 source)Cholinergic Nicotinic AgonistStart: 59-75-5330CPSRXbwhsa 5 mg oral tablet (2 sources)Atypical AntipsychoticStart: 52-30-2080zahb 1 tablet by mouth every six hours as neededomeprazole 20 mg delayed release oral capsule (1 source)Proton Pump Inhibitortake 1 capsule by mouth in the morningOmeprazole 20 MG TAKE 1 CAPSULE BY MOUTH IN THE MORNING Oral for 30 Days Activeondansetron 4 mg disintegrating oral tablet (15 sources)Serotonin-3 Receptor AntagonistStart: 23-60-4553xowr 1 tablet by mouth three times daily as needed for nauseaondansetron (ZOFRAN-ODT) 4 MG disintegrating tablet Take 1 tablet by mouth 3 times daily as needed for Nausea or Vomiting 21 tablet 06/20/2025 ActiveStart: 06-20-2025 End: mg, IntraVENous, ONCE, 1 dose, On Thu06/20/25 at 1230Start: 05-13-2025 End: mg, IntraVENous, ONCE, 1 dose, On 05/13/25 at 1515Start: 00-01-4979pwgx 1 tablet by mouth every eight hours as needed for nausea ondansetron ODT (ZOFRAN ODT) 4 mg disintegrating tablet Dissolve 1 tablet (4 mg total) on tongue every 8 (eight) hours as needed for nausea for up to 10 doses. 10 tablet 02/23/2025 ActiveStart: 02-23-2025 End: 94-19-0185buhlypnabus ODT (ZOFRAN ODT) 4 mg disintegrating tablet Dissolve 1 tablet (4 mg total) on tongue 3 (three) times a day as needed for nausea for up to 3 doses. 3 tablet 03/01/2025 05/05/2025 Discontinued (Duplicate Listing) Start: 52-59-8489igoj 4 mg intravenously every six hours as needed for nausea and vomitingStart: 80-13-9395Aomnht 4 MG 1 tablet ODT tid prn 15 Jun, 2023 Not-Takingondansetron (ZOFRAN-ODT) disintegrating tablet 4 mg (1 source)Start: 76-25-3711qbqejstpwua (ZOFRAN-ODT) disintegrating tablet 4 mg polyethylene glycol 3350 21476 mg powder for oral solution (1 source)Osmotic LaxativeStart: 58-98-8140spivkdoechgjswnwk potassium chloride 20 meq extended release oral tablet (7 sources)Start: 05-13-2025 End: 78-95-8388oovg 1 tablet by mouth once dailypotassium chloride (KLOR-CON M) 20 MEQ extended release tablet Take 1 tablet by mouth daily for 4 doses 4 tablet 05/13/2025 ActiveStart: 04-26-2025 End: 25-94-865049 mEq, Oral, ONCE, 1 dose, On Thu04/26/25 at 1200, Do not crush, chew, or suck on tablet. Tablet may also be broken in half and each half swallowed separately.Start: 32-29-4628piomzjptf chloride (KLOR-CON M) extended release tablet 40 mEqStart: 04-25-2025 End: 80-28-533648 mEq, IntraVENous, ONCE, 1 dose, On Thu04/25/25 at 1300, at 100 mL/hr, Potassium chloride doses are limited to a maximum of six consecutive doses before reassessment of laboratory values is needed.promethazine hydrochloride 12.5 mg oral tablet (2 sources)PhenothiazineStart: 10-41-6239fivr 1 tablet by mouth every six hours as needed for nauseapromethazine (PHENERGAN) 12.5 mg tablet Indications: Nausea and vomiting, unspecified vomiting typeTake 1 tablet (12.5 mg total) by mouth every 6 (six) hours as needed for nausea or vomiting. 30 tablet 05/05/2025 Activepromethazine (PHENERGAN) 12.5mg in sodium chloride 0.9% 50 mL IVPB SOLN 12.5 mg (1 source)Start: 71-29-566923.5 mg, IntraVENous, at 100 mL/hr, Administer over 30 Minutes, EVERY 6 HOURS PRN, Nausea, Startingon Thu04/26/25 at 0727, Administer via antecubital vein or higher.thiamine 100 mg oral tablet (2 sources)Start: 47-48-5354aejb 1 tablet by mouth twice dailytraZODone hydrochloride 50 mg oral tablet (2 sources)Serotonin Reuptake InhibitorStart: 74-43-1913jwbl 1 tablet by mouth once daily at bedtime as needed (8 sources)Start: 11-12-2024[Order 1 Start] Name: sodium phosphate 20 mmol in sodium chloride 0.9 % 250 mL IVPB Signed Summary:20 mmol, intravenous, at 42.8 mL/hr, Administer over 6 Hours, As needed, for phosphorus level 2.3 mg/dL or less, Starting on 11/12/24 at 0926, Administer over 6 hours via dedicated line (peripheralline). If administered, recheck phosphorus level 4 hours after infusion complete. [Order 1 End] [Order 2 Start] Name: sodium phosphate 20 mmol in sodium chloride 0.9 % 100 mL IVPB Signed Summary: 20 mmol, intravenous, at 26.7 mL/hr, Administer over 4 Hours, As needed, for phosphorus level 2.3 mg/dLor less., Starting on 11/12/24 at 0926, Administer over 4 hours via dedicated line (central line). If administered, recheck phosphorus level 4 hours after infusion complete. Infuse using central line access. [Order 2 End] [Order 3 Start] Name: sod phos di, mono-K phos mono (K-PHOS NEUTRAL) 250 mgtablet 2 tablet Signed Summary: 2 tablet, oral, As needed, for phosphorus level 2.3 mg/dL or less. Do not administer if potassium is more than 4.5, Starting on 11/12/24 at 0926, If dose administered, recheck phosphorus level 4 hours after last dose. Look-alike/sound-alike medication - verify indication for use. Give with a full glass of water. [Order 3 End]Start: 43-98-2369Mlzkq: 48-23-9516Wmhuf: 11-12-2024 [Order 1 Start] Name: potassium chloride (K-TAB,KLOR-CON) CR tablet 20-60 mEq Signed Summary: 20-60mEq, oral, As needed, Potassium Supplementation, Starting on [...] or less =60 mEq. Must dilute before use- Mix in 3-8 ounces of water or [...] a minimum of 1 hour. [Order 3 End]Start: 11-07-2024 End: 59-84-8871Ecxys: 11-07-2024 End: 35-14-9342Sjscc: 11-06-2024 End: 37-09-7569Lrmyh: 11-05-2024 End: 11-05-2024 Completed/Discontinued Medications MedicationDrug Class(es)DatesSig (Normalized)Sig (Original)amLODIPine 5 mg oral tablet (1 source)Dihydropyridine Calcium Channel BlockerStart: 11-09-2024 End: 26-12-7434dhwrjuicw 0.25 mg/ml topical cream (1 source)Start: 06-20-2025 End: 65-34-7526bupfj 1 dose topically onceTopical, Once, On Thu06/20/25 at 1230, For 1 dose, Apply to abdomen. Do not apply to wounds, damaged,broken or irritated skin. Do not cover with bandage. Do not use in combination with external heat source (eg. heating pad)cariprazine 1.5 mg oral capsule (2 sources)Atypical Antipsychotic End: 03-60-4322xwxc 1 capsule by mouth in the morningcariprazine (VRAYLAR) 1.5 mg capsule Take 1 capsule (1.5 mg total) by mouth in the morning. Active cefTRIAXone 2000 mg injection (2 sources)Cephalosporin AntibacterialStart: 11-05-2024 End: 53-27-8845ypnr 2000 mg intravenously every twenty-four hourscyclobenzaprine hydrochloride 10 mg oral tablet (8 sources)Muscle RelaxantStart: 01-06-2024 End: ml dexamethasone phosphate 10 mg/ml injection (1 source)CorticosteroidStart: 11-05-2024 End: 55-46-2496vdyf 10 mg intravenously every six cjzxy018 ml dexmedetomidine 0.004 mg/ml injection (1 source)Central alpha-2 Adrenergic AgonistStart: 11-05-2024 End: 87-38-2870fkvqlxjcaqOKSIO (2 sources)Histamine-1 Receptor AntagonistStart: 11-11-2024 End: 21-34-5959Somtm: 61-67-5616ofps 25 mg by mouth every six hours as needed2 ml droperidol 2.5 mg/ml injection (1 source)Dopamine-2 Receptor AntagonistStart: 04-25-2025 End: .5 mg, IntraVENous, ONCE, 1 dose, On Thu04/25/25 at 1230Start: 04-25-2025 End: .5 mg, IntraVENous, ONCE, 1 dose, On Thu04/25/25 at 15646.4 ml enoxaparin sodium 100 mg/ml prefilled syringe (1 source)Low Molecular Weight HeparinStart: 87-54-7543pjnusj 40 mg by subcutaneous injection once daily40 mg, SubCUTAneous, DAILY, First dose on Thu04/25/25 at 1700, Until Discontinued, Indication of Use: Prophylaxis-DVT/PE, Administer by deep subCUTAneous injection with pt lying down. Alternate inject ion sites on abdominal wall. Do not rub site after injection. Check with provider prior to any invasive procedure.2 ml famotidine 10 mg/ml injection (1 source)Histamine-2 Receptor AntagonistStart: 11-05-2024 End: ml fentaNYL 0.05 mg/ml injection (2 sources)Opioid AgonistStart: 11-05-2024 End: 48-88-8444hked 25 ug intravenously every hour as neededhydrOXYzine hydrochloride 25 mg oral tablet (14 sources)AntihistamineStart: 11-03-2024 End: 00-09-1556qatn 25 mg by mouth every eight hours as neededStart: 04-21-2024 take 1 capsule by mouth every six hours as needed for anxietyStart: 09-09-2023 End: 55-49-7673igpuxsnnw 800 mg oral tablet (8 sources)Nonsteroidal Anti-inflammatory DrugStart: 01-06-2024 End: 96-28-1004nroe 800 mg by mouth every eight hours as needed for pain iopamidol (ISOVUE-370) 76 % injection 75 mL (1 source)Start: 04-25-2025 End: 23-27-9325ymet 1 dose intravenously once75 mL, IntraVENous, IMG ONCE PRN, 1 dose, Starting on Thu04/25/25 at 1313, Until Thu04/25/25 at 1314, Other lamoTRIgine 100 mg oral tablet (5 sources)Mood Stabilizer, Anti-epileptic AgentStart: 09-14-2024 End: 29-80-7823Nytbf: 53-56-5937dghfUAKeobf (LaMICtal) 100 mg tablet Take 100 mg in the morning and 50 mg at night for 2 weeks, after that start taking 100 mg once in the morning and once at night and continue on that dose 60 tablet 2 09/14/2024 ActiveStart: 60-63-5372ojdaZQCffim (LaMICtal) 100 mg tablet Take 110 mg by mouth. 06/23/2024 ActiveStart: 27-64-8693fzyw 1 tablet by mouth once daily levETIRAcetam 750 mg oral tablet (20 sources)Start: 71-17-0995waby 750 mg by mouth twice cpxix744 mg, Oral, 2 TIMES DAILY, First dose on Thu04/25/25 at 2100, Until Discontinued, Do not crush orchew.Start: 04-57-3660aoke 3 tablets by mouth in the morning, then take 3 tablets by mouth at bedtimelevETIRAcetam (KEPPRA) 500 mg tablet Indications: Seizure disorder (CMS-HCC) Take 3 tablets (1,500 mg total) by mouth in the morning and 3 tablets (1,500 mg total) before bedtime. 540 tablet 1 03/15/2025 ActiveStart: 12-21-2024 End: 25-17-5439odmh 2 tablets by mouth in the morning, then take 2 tablets by mouth at bedtimelevETIRAcetam (KEPPRA) 500 mg tablet Indications: Seizure disorder (CMS-HCC) Take 2 tablets (1,000 mg total) by mouth in the morning and 2 tablets (1,000 mg total) before bedtime. 360 tablet 1 12/21/2024 03/15/2025 Discontinued (Reorder)Start: 11-12-2024 End: 76-38-2465inty 1 tablet by mouth in the morning, then take 1 tablet by mouth at bedtimelevETIRAcetam (KEPPRA) 500 mg tablet Take 1 tablet (500 mg total) by mouth in the morning and 1 tablet (500 mg total) before bedtime. 12/10/2024 12/21/2024 Discontinued (Reorder)Start: 11-07-2024 End: 57-74-6554Woham: 11-05-2024 End: 18-00-0037zzgm 1000 mg intravenously every twelve hoursStart: 09-14-2024 End: 92-57-4054iuudzefqa 0.05 mg/mg medicated patch (8 sources)Antiarrhythmic, Amide Local AnestheticStart: 01-06-2024 End: 42-03-3532jioahxMMSZQXStnynm (7 sources)CorticosteroidStart: 11-03-2024 End: 07-54-9630Vyjie: 01-06-2024 End: 92-92-3109fwigvnTKTIQEYexqbt (MEDROL, PENELOPE,) 4 mg tablet follow package directions 21 tablet 01/06/2024 07/12/2024 Discontinued (Therapy completed) Start: 28-68-2133rqzbjnCLTLYAYioqbp (MEDROL, PENELOPE,) 4 mg tablet follow package directions 21 tablet 01/06/2024 ActiveStart: 09-81-0578yegawfRGTDECXfblqq (MEDROL, PENELOPE,) 4 mg tablet follow package directions 21 tablet 0 01/06/2024 ActivemetroNIDAZOLE 500 mg oral tablet (1 source)Nitroimidazole AntimicrobialStart: 11-05-2024 End: 45-41-3889zlqqbbmrsae 30 mg oral capsule (6 sources)Neuraminidase InhibitorStart: 11-12-2024 End: 42-64-4019xwjs 1 capsule by mouth in the morning, then take 1 capsule by mouth at bedtimeoseltamivir (TAMIFLU) 30 mg capsule Take 1 capsule (30 mg total) by mouth in the morning and 1 capsule (30 mg total) before bedtime. Do all this for 4 days. 8 capsule 11/12/2024 11/16/2024 ExpiredStart: 11-12-2024 End: 65-89-8218Fdofy: 11-11-2024 End: 42-46-8862TFXwcvdelg hydrochloride 20 mg oral tablet (20 sources)Serotonin Reuptake InhibitorStart: 82-44-4740gtab 40 mg by mouth once daily in the dqptiej70 mg, Oral, EVERY MORNING, First dose on Thu04/26/25 at 0900, Until DiscontinuedStart: 11-13-2024 End: 95-92-4503vldf 1 tablet by mouth in the morningPARoxetine (PAXIL) 10 mg tablet Take 1 tablet (10 mg total) by mouth in the morning for 30 days. 30tablet 11/13/2024 12/13/2024 ActiveStart: 11-05-2024 End: 43-00-3626Zirbo: 10-11-2024 End: 81-90-8557Azkkc: 10-27-2023 End: 52-31-3668kocp 1 tablet by mouth once daily in the morningPARoxetine (PAXIL) 40 mg tablet Take 1 tablet (40 mg total) by mouth every morning. 12/10/2024 ActiveStart: 20-24-6397wgwj 1 tablet by mouth in the morning PARoxetine (PAXIL) 20 mg tablet Indications: Generalized anxiety disorder Take 1 tablet (20 mg total) by mouth in the morning. 90 tablet 2 10/08/2023 Active Start: 09-09-2023 End: 53-30-5788ikaq 1 tablet by mouth in the morningPARoxetine (PAXIL) 10 mg tablet Indications: Generalized anxiety disorder Take 1 tablet (10 mg total) by mouth in the morning. 30 tablet 2 09/09/2023 10/08/2023 Discontinuedpotassium bicarbonate 20 meq effervescent oral tablet (1 source)Start: 04-25-2025 End: 62-61-0829hewj 3-4 tablets by mouth once40 mEq, Oral, ONCE, 1 dose, On Thu04/25/25 at 1300, Do not chew or crush. Dissolve flavored tabletscompletely in 3 to 4 ounces of cold water; unflavored tablets may be dissolved in 3 to 4 ounces of cold juice. Patient to sip slowly over a 5 to 10 minute period. May further dilute if GI adverse effects occur.prochlorperazine 5 mg/ml injectable solution (4 sources)PhenothiazineStart: 05-13-2025 End: 63-28-313110 mg, IntraVENous, ONCE, 1 dose, On 05/13/25 at 1615, If administering IV push, administer at a maximum rate of 5 mg/minute. Patients should remain lying down following administration and be reassessed for relief of nausea and presence of hypotension. Patients should be assisted the first time they get up after administration.Start: 37-93-4889cbsq 1 tablet by mouth every six hours as needed for nausea and vomitingprochlorperazine (COMPAZINE) 10 MG tablet Take 1 tablet by mouth every 6 hours as needed (Nausea and Vomiting) 12 tablet 05/13/2025 Zbeeeu99 ml sodium chloride 9 mg/ml injection (10 sources)Start: 06-20-2025 End: ,000 mL (11 mL/kg), IntraVENous, at 495.9 mL/hr, Administer over 121 Minutes, ONCE, On Tu06/20/25at 1230, For 1 doseStart: 05-13-2025 End: ,000 mL, IntraVENous, at 1,000 mL/hr, Administer over 1 Hours, ONCE, On 05/13/25 at 1615, For 1 dose, May administer over 30 minutes if well tolerated.Start: -40 mL, IntraVENous, EVERY 12 HOURS SCHEDULED (2 times per day), First dose on Thu04/25/25 at 2100, Until Discontinued, For Line Patency: Peripheral IV = 5 mL; Midline or Central Line = 10 mL/lumen.If following IV push medication, administer flush at same rate as the IV push. Flush volume is determined by type of infusion therapy being given. For non- viscous solutions use: Peripheral IV = 5 mL Midline or Central Line = 10 mL/lumen For viscous solutions (i.e. blood components, parenteral nutrition, contrast media, or after obtaining blood sample) use: Peripheral IV = 10 mL Midline or CentralLine = 20 mL/lumenStart: 35-06-0011Ulmrq: 04-25-2025 End: 93-92-4827PwbjdGZCcov, at 75 mL/hr, CONTINUOUS, Starting on Thu04/25/25 at 1700, For 24 hours, Complete last bag that is running at 24 hours and then saline lock IVStart: 11-05-2024 End: 66-34-1149bgWMRwxwdn 4 mg oral tablet (6 sources)Central alpha-2 Adrenergic AgonistStart: 01-07-2024 End: 24-66-0452pqNRGcqade (ZANAFLEX) 4 mg tablet Indications: Seizure (CMS-HCC) , Muscle cramp Use 1 tab each night scheduled. If still having muscle cramps spasm can have 1 tab in day as needed. 60 tablet 01/07/2024 07/12/2024 Discontinued (Discontinued by another clinician)venlafaxine 37.5 mg oral tablet (20 sources)Serotonin and Norepinephrine Reuptake InhibitorStart: 34-22-0915etin 37.5 mg by mouth once daily37.5 mg, Oral, DAILY, First dose on Thu04/25/25 at 1700, Until DiscontinuedStart: 68-36-9836ksdl 1 capsule by mouth every twenty- four hours in the morningvenlafaxine XR (EFFEXOR XR) 37.5 mg 24 hr capsule Take 1 capsule (37.5 mg total) by mouth in the morning. 11/21/2024 ActiveStart: 43-77-1780txtg 1 tablet by mouth once daily at breakfastvenlafaxine 75 MG tablet extended release 24hr 24 hr tablet Take 1 tablet (75 mg total) by mouth daily with breakfast. 09/05/2024 ActiveStart: 04-21-2024 End: 75-92-4882Hwcyl: 03-22-2024 End: 34-29-6382zvdu 1 capsule by mouth once dailyVenlafaxine 37.5 mg capsule,extended release 24hr Discontinued 37.5 MG PO Daily April 17, 2024 12:0 0am April 22, 2024 8:12amStart: 12-23-9552pegr 1 capsule by mouth every twenty- four hours in the morningvenlafaxine XR (EFFEXOR XR) 37.5 mg 24 hr capsule Indications: Anxiety Take 1 capsule (37.5 mg total) by mouth in the morning. 90 capsule 03/22/2024 ActiveStart: 11-24-2023 End: 33-08-6620drmv 1 capsule by mouth every twenty-four hours in the morning venlafaxine XR (EFFEXOR XR) 37.5 mg 24 hr capsule Indications: Anxiety Take 1 capsule (37.5 mg total) by mouth in the morning. 90 capsule 11/24/2023 02/08/2024 Discontinued (Reorder) Problems Active Problems Problem ClassificationProblemDateDocumented DateEpisodic/ChronicAcute and unspecified renal failure (20 sources)Acute renal failure syndrome; Translations: [Acute kidney failure, unspecified]Onset: [id number] disorders (20 sources)Anxiety; Translations: [Anxiety disorder, unspecified]Onset: 451470-18-9567DhjpcuaSdkqcdvav and vision defects (20 sources)Visual impairment; Translations: [Unspecified visual loss]Onset: 303832-51-1666ElqsrudUzdgqoil; convulsions (20 sources)Seizure disorder; Translations: [Epilepsy, unspecified, not intractable, without status epilepticus]Onset: hronic Epilepsy; convulsions (20 sources)Neurological finding; Translations: [Unspecified convulsions]Onset: 09-12-2024 Resolved: 226973-89-3012UqtkgnvrCbqihhgcpl disorders (20 sources)Gastro-esophageal reflux disease without esophagitis; Translations: [Gastroesophageal reflux disease]Onset: 991398-50-6439EiwgzwxXmdhdygft (3 sources)Influenza due to Influenza A virus subtype H1N1; Translations: [Influenza due to other identified influenza virus with other respiratory manifestations]Onset: 184790-05-8653AduefkekVndm disorders (20 sources)Depressive disorder; Translations: [Depression]Onset: 02-06-2023 77-12-2942ZuqcugiCsia disorders (20 sources)Mood disorders; Translations: [Depression, unspecified]Onset: 02-06-2023 Resolved: Nausea and vomiting (19 sources)Nausea with vomiting, unspecified; Translations: [Nausea and vomiting]Onset: 36-46-4629SktlgbefArrfj aftercare (1 source)Post-discharge follow-up; Translations: [Encounter for follow-up examination after completed treatment for conditions other than malignant neoplasm]43-53-3195XcvzblrgUckqs complications of (1 source)Missed miscarriage; Translations: [Missed ]78-13-6599Izzirycd Other complications of (1 source)Missed ; Translations: [Missed ]Onset: 07-11-2025 EpisodicOther complications of (1 source)Spotting complicating , first trimester; Translations: [Spotting complicating , first trimester]Onset: 67-23-8455QnjisiijYblig connective tissue disease (2 sources)Non-traumatic rhabdomyolysis; Translations: [Rhabdomyolysis] 42-96-4960TxmacrewAjwuy connective tissue disease (1 source)Rhabdomyolysis; Translations: [Rhabdomyolysis]Onset: 11-05-2024 EpisodicOther female genital disorders (1 source)Recurrent loss; 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] Onset: 96-43-7629UsnvdhikDrddr liver diseases (2 sources)Enzyme level - finding; Translations: [Transaminitis]11-12-2024 EpisodicOther and delivery including normal (2 sources) test positive; Translations: [Encounter for test, result positive]Onset: 830508-99-3155DghpcetcJygdncyw codes; unclassified (1 source)Altered mental status, unspecified; Translations: [Altered mental status, unspecified]Onset: 36-84-3787IdidxchkKrakizre codes; unclassified (1 source)Disorientation, unspecified; Translations: [Disorientation, unspecified]Onset: 00-44-2194TpgsfrcbJugcmjfs codes; unclassified (1 source)Altered mental statusOnset: 09-34-9098SokmzebgJonovpged and history of mental health and substance abuse codes (1 source)Personal history of nicotine dependence; Translations: [PERSONAL HISTORY OF NICOTINE DEPEND]Onset: 81-85-0119UewvfhffXunvctwgbka; intervertebral disc disorders; other back problems (2 sources)Lumbago with sciatica, left side; Translations: [Lumbago with sciatica, left side]Onset: 83-92-8318VlmtfpsfApewjqtwy-related disorders (3 sources)Cannabis hyperemesis syndrome co-occurrent and due to cannabis abuse; Translations: [Cannabis abusewith other cannabis-induced disorder]Onset: 798056-06-1517VmwteaqZwychoditjxr (1 source)Elevation of levels of liver transaminase levels; Translations: [Elevation of levels of liver transaminase levels]Onset: 89-11-2764Wdmzcgihjopn (1 source)Drug rash with eosinophilia and systemic symptoms syndrome; Translations: [Drug rash with eosinophilia and systemic symptoms syndrome]Onset: 12-03-0679Rflpabhezotc (1 source)illOnset: 18-44-8056Fragkoozstbz (1 source)inquiry of how far along in pregnancyOnset: 06-19-2025 Past or Other Problems Problem ClassificationProblemDateDocumented DateEpisodic/ChronicAbdominal pain (2 sources)Unspecified abdominal pain; Translations: [Abdominal pain]Onset: 16-35-5399AonvekjpKzwphdiy reactions (20 sources)Eczema; Translations: [Dermatitis, unspecified]Onset: 02-06-2023 42-84-1372YjxanydtUagbttz dysrhythmias (2 sources)Tachycardia, unspecified; Translations: [Tachycardia, unspecified] Onset: 50-70-1785NgqlrxqrZ Codes: Adverse effects of medical drugs (1 source)Adverse effect of unspecified drugs, medicaments and biological substances, initial encounter; Translations: [Adverse effect of unspecified drugs, medicaments and biological substances, initial encounter]Onset: 70-45-0451SgyggsrfDojgy and electrolyte disorders (8 sources)Other disorders of electrolyte and fluid balance, not elsewhere classified; Translations: [Hypokalemia]Onset: 702633-04-8704Bcnscadh Gastrointestinal hemorrhage (1 source)Hematemesis; Translations: [Hematemesis]Onset: 15-72-8455Quzujpae Noninfectious gastroenteritis (1 source)Noninfective gastroenteritis and colitis, unspecified; Translations: [Noninfective gastroenteritis and colitis, unspecified]Onset: 71-99-3525Hreovadb Other connective tissue disease (1 source)Cramp; Translations: [Cramp and spasm]03-48-8291SqxongycLtqpz disorders of stomach and duodenum (1 source)Adverse reaction to cannabis; Translations: [Cannabinoid hyperemesis syndrome]Onset: 441293-68-4295ZkvdysuqIgwkh gastrointestinal disorders (1 source)Diarrhea, unspecified; Translations: [Diarrhea, unspecified]Onset: 79-14-3527GbluhpjbHqeekafhop (except in labor) (2 sources)Sepsis; Translations: [Sepsis, unspecified organism]Onset: 11-04-2024 EpisodicSubstance-related disorders (2 sources)Cannabis use, unspecified, uncomplicated; Translations: [CANNABIS USE UNS UNCOMPLICATED]Onset: 12-81-9465AbynsvhpInkkgibiuwsh (13 sources)Onset: 07-13-2024 Resolved: Results Test NameValueInterpretationReference RangeFacilityHCG, Quanton 85-58-4204MMW, Quant<0.1Tpsmci2-8UiafoTrinity Health SystemComment on above:Result Comment: Non-preg premeno <=5 Postmeno <=8 Male <=3 If HCG results do not concur with clinical observations, additional testing to confirm results is recommended.Performed By: #### APTMUT, AMTHFR #### [facility] [address] [place] [address] Engagement Executive: Melchor Rubin MD #### LUPPRO #### [facility] [address] [place], [place] [id number] Engagement Executive: Temo Tipton MD [address] [address] Engagement Executive: Christian Hanley MDhCG, Quantitative, Pregnancyon 48-35-2935EJR.beta subunit QnBon [facility] HospitalComment on above: Non-preg premeno <=5 Postmeno <=8 Male <=3 If HCG results do not concur with clinical observations, additional testing to confirm results is recommended. Bon [facility] HospitalLupus Anticoagulanton 22-40-3237Ylftge Kenneth Viper NegativeNormalNLUPTrinity Health SystemComment on above:Performed By: #### APTMUT, AMTHFR #### [facility] [address] [place] [address] Engagement Executive: Melchor Rubin MD #### LUPPRO #### [facility] [address] [place] [address] Engagement Executive: Temo Tipton MD [facility] [address] [place] [address] [place] [address] Engagement Executive: MURRAY Singh Gene Mutationon 23-00-8759CMQMC 1286 A>C Mut HeterozygousWadsworth-Rittman Hospital HospitalComment on above:Performed By: #### APTMUT, AMTHFR #### [facility] [address] [place] [address] Engagement Executive: Melchor Rubin MD #### LUPPRO #### [facility] [address] [place] [address] Engagement Executive: Temo Tipton MD [address] [place] [phone] Engagement Executive: MURRAY Singh 655C>T MutHeterozygousWadsworth-Rittman Hospital HospitalComment on above:Performed By: #### APTMUT, AMTHFR #### [facility] [address] [place] [address] Engagement Executive: Melchor Rubin MD #### LUPPRO #### [facility] [address] [place] [address] Engagement Executive: Temo Tipton MD [address] [place] [phone] Engagement Executive: MURRAY Singh InterpretationSee NoteLakeHealth TriPoint Medical CenterComment on above:Result Comment: (NOTE) Indication for testing: Determine genetic contribution to hyperhomocysteinemia. Compound Heterozygous MTHFR c.665C>T/c.1286A>C: One copy of each of the two MTHFR gene variants tested, c.665C>T (previously designated C677T) and c.1286A>C (previously designated M2121V) were detected. This genotype may be associated with a mild, but clinically insignificant, decrease in MTHFR enzyme activity. This result has been reviewed and approved by Danny Smyth, Ph.D. Background Information: Methylenetetrahydrofolate Reductase (MTHFR) 2 Variants Characteristics: Variants in the MTHFR gene may reduce enzyme activity contributing to hyperhomocysteinemia. Although hyperhomocysteinemia was previously reported to be a risk factor for many conditions, especially venous thrombosis and cardiovascular disease, recent meta-analysis casts doubt on whether lifelong moderate homocysteine elevation has an effect on cardiovascular disease. The [employer] Practice Guidelines indicate that individuals with elevated homocysteine and two copies of the c.665C>T variant have an odds ratio of 1.27 for venous thromboembolism. Thus, they recommend MTHFR genotyping not be ordered as part of a routine evaluation for recurrent loss or thromobophilia due to questionable clinical significance. Incidence: The allele frequency of the c.665C>T variant is 0.35 in Caucasians, 0.5 in Hispanics, and 0.12 in Americans. Inheritance: Autosomal recessive; two copies of the c.665C>T variant may be a contributing factor to hyperhomocysteinemia. Variants Tested: c.665C>T(p.Sam650Rcx) and c.1286A>C(p.Xvi410Dbt). (legacy names C677T and R6218X, respectively). Clinical Sensitivity: Undefined; hyperhomocysteinemia is caused by genetic, physiologic and environmental factors. MTHFR variants are only one contributing factor. Methodology: Polymerase chain reaction (PCR) and fluorescence monitoring. Analytical Sensitivity and Specificity: 99 percent. Limitations: Only two MTHFR gene variants (c.665C>T and c.1286A>C) are tested. Diagnostic errors can occur due to rare sequence variations. This test was developed and its performance characteristics determined by [facility]. It has not been cleared or approved by the [place] Food and Drug Administration. This test was performed in a CLIA certified laboratory and is intended for clinical purposes. Counseling and informed consent are recommended for genetic testing. Consent forms are available online. Performed By: [facility] [address] [place] [id number] [employer] Cable Jointer: Jose Juan Rasheed MD, PhD CLIA Number: [id number] By: #### APTMUT, AMTHFR #### [facility] [address] [place] [phone] Engagement Executive: Melchor Rubin MD #### LUPPRO #### [facility] [address] [place] [address] Engagement Executive: Temo Tipton MD [address] [place], [place] [phone] Engagement Executive: MURRAY Singh SPECIMENWhole BloodNormalTrinity Health SystemComment on above:Performed By: #### APTMUT, AMTHFR #### [facility] [address] [place] [address] Engagement Executive: Melchor Rubin MD #### LUPPRO #### [facility] [address] [place] [address] Engagement Executive: Temo Tipton MD [address] [place], [place] [phone] Engagement Executive: Dimitri Singh 47-71-4210Acqh Out Report(NOTE) [facility] TriPoint Medical CenterComment on above:Result Comment: APC Resistance Profile with Reflex to Factor V Leiden APC Resistance 3.35 (Ref Interval: >=2.00) TEST INTERPRETATION: APC Resistance Profile Ratios less than 2.00 suggest APC resistance. This method uses factor V deficient plasma; therefore, APC resistance due to a nonfactor V mutation will not be detected. Extreme factor V deficiency or presence of direct oral anticoagulants (DOACs) may cause an unreliable ratio. FACV REF Specimen Not Done Factor V Leiden by PCR Not Done Because the APCR was negative, the Factor V Leiden by PCR assay was not run. ARUPPerformed By: #### APTMUT, AMTHFR #### [facility] [address] [place] [address] Engagement Executive: Melchor Rubin MD #### LUPPRO #### [facility] [address] [place] [address] Engagement Executive: Temo Tipton MD [address] [place], [place] [phone] Engagement Executive: AWILDA SinghT Mutation 31400cl 38-16-5265PV M00259N VARIANT NegativeNormalMercy Veterans Administration Medical CenterComment on above:Result Comment: (NOTE) Indication for testing: Assess genetic risk for thrombosis. NEGATIVE: The Factor II, prothrombin T09271A mutation, was not detected. Other causes of elevated prothrombin levels and hereditary forms of venous thrombosis have not been excluded. Recommendations: If clinically indicated, testing for other inherited or acquired thrombophilic disorders is recommended including DNA testing for the factor V Leiden mutation, measurement of total plasma homocysteine concentration, serological assays for anticardiolipin antibodies, multiple phospholipid-dependent coagulation assays for lupus inhibitor, protein C activity, protein S activity or free protein S antigen, and antithrombin activity. This result has been reviewed and approved by Danny Smyth, Ph.D. BACKGROUND INFORMATION: Prothrombin (F2) c.*97G>A (V68119K) Pathogenic Variant CHARACTERISTICS: The Factor II, c.*97G>A (S57993P) pathogenic variant is a common genetic risk factor for venous thrombosis associated with elevated prothrombin levels leading to increased rates of thrombin generation and excessive growth of fibrin clots. The expression of Factor II thrombophilia is impacted by coexisting genetic thrombophilic disorders, acquired thrombophilic disorders (eg, malignancy, hyperhomocysteinemia, high factor VIII levels), and circumstances including: , oral contraceptive use, hormone replacement therapy, selective estrogen receptor modulators, travel, central venous catheters, surgery, and organ transplantation. INCIDENCE: Approximately 2 percent of Caucasians and 0.3 percent of Americans are heterozygous; homozygosity occurs in 1 in 10,000 individuals. INHERITANCE: Incomplete autosomal dominant. PENETRANCE: The risk of thrombosis is increased 2-4 fold for heterozygotes and further increased for homozygotes. CAUSE: Homozygosity or heterozygosity for F2 c.*97G>A (Z73559Q). PATHOGENIC VARIANT TESTED: F2 c.*97G>A (C27994I). CLINICAL SENSITIVITY FOR VENOUS THROMBOSIS: Approximately 10 percent. METHODOLOGY: Polymerase chain reaction and fluorescence monitoring. ANALYTICAL SENSITIVITY AND SPECIFICITY: 99 percent. LIMITATIONS: Diagnostic errors can occur due to rare sequence variations. F2 gene variants, other than c.*97G>A (F40505Q), will not be detected. This test was developed and its performance characteristics determined by [facility]. It has not been cleared or approved by the [place] Food and Drug Administration. This test was performed in a CLIA certified laboratory and is intended for clinical purposes. Counseling and informed consent are recommended for genetic testing. Consent forms are available online. Performed By: [facility] [address] [place] [address] [employer] Jointer: Jose Juan Rasheed MD, PhD CLIA Number: [id number] By: #### APTMUT, AMTHFR #### [facility] [address] [place] [address] Engagement Executive: Melchor Rubin MD #### LUPPRO #### [address] [address] Engagement Executive: Temo Tipton MD [address] [place] [address] Engagement Executive: JENARO Singh PCR SPECIMENWhole BloodNormalTrinity Health SystemComment on above:Performed By: #### APTMUT, AMTHFR #### [address] [address] Engagement Executive: Melchor Rubin MD #### LUPPRO #### [address] [address] Engagement Executive: Temo Tipton MD [address] [place] [address] Engagement Executive: Christian Hanley MDLupus Anticoagulanton 27-47-3852Uymlotfxkzxvhmn IgM<0.4Rwjjmy4.0-10.0Trinity Health SystemComment on above:Result Comment: Reference Range: <10.0 Negative 10.0-40.0 Equivocal >40.0 PositivePerformed By: #### APTMUT, AMTHFR #### [facility] [address] [place] [address] Engagement Executive: Melchor Rubin MD #### LUPPRO #### [address] [address] Engagement Executive: Temo Tipton MD [address] [place] [phone] Engagement Executive: Morena Singh IgA2.6 APLNormal0.0-14.0[facility] HospitalComment on above:Result Comment: Reference Range: <14.0 Negative 14.0-20.0 Equivocal >20.0 Positive When results are Equivocal, it is recommended to retest after 4-6 weeks. Performed By: #### APTMUT, AMTHFR #### [facility] [address] [place], [place] [id number] Engagement Executive: Melchor Rubin MD #### LUPPRO #### [address] [phone] Engagement Executive: Temo Tipton MD [address] [place] [phone] Engagement Executive: Morena Singh IgG0.7 GPLNormal0.0-10.0Trinity Health SystemComment on above:Result Comment: Reference Range: <10.0 Negative 10.0-40.0 Equivocal >40.0 PositivePerformed By: #### RAYMONDMUT, AMTHFR #### [facility] [address] [place], [place] [id number] Engagement Executive: Melchor Rubin MD #### LUPPRO #### [address] [phone] Engagement Executive: Temo Tipton MD [address] [place] [phone] Engagement Executive: Christian Hanley MDHCG, Quanton 17-20-8134RDX, Bvnht281.0 mIU/mLHigh 0-7Trinity Health SystemComment on above:Result Comment: Non-preg premeno <=5 Postmeno <=8 Male <=3 If HCG results do not concur with clinical observations, additional testing to confirm results is recommended.Performed By: #### APTMUT, AMTHFR #### [facility] [address] [place] [address] Engagement Executive: Melchor Rubin MD #### LUPPRO #### [facility] [address] [place] [address] Engagement Executive: Temo Tipton MD [address] [place], [place] [phone] Engagement Executive: Ainsley Singhus Anticoagulanton 14-26-7499rFYT Coag (Bld) [Time]29.5 tZdwmqy56.1-33.7Trinity Health SystemComment on above:Result Comment: IV Heparin Therapy Range: 62.0-94.0Performed By: #### APTMUT, AMTHFR #### [facility] [address] [place] [address] Engagement Executive: Melchor Rubin MD #### LUPPRO #### [address] [address] Engagement Executive: Temo Tipton MD [address] [place], [place] [phone] Engagement Executive: Christian Hanley MDINR Coag (PPP) [Relative time]0.9 {INR}NormalTrinity Health SystemComment on above:Result Comment: Therapeutic Range: Moderate Anticoagulant Intensity: INR = 2.0-3.0 High Anticoagulant Intensity: INR = 2.5-3.5Performed By: #### APTMUT, AMTHFR #### [facility] [address] [place] [address] Engagement Executive: Melchor Rubin MD #### LUPPRO #### [facility] [address] [place] [address] Engagement Executive: Temo Tipton MD [address] [place] [address] Engagement Executive: JENARO Singh Coag (PPP) [Time]12.6 zHuwhgh63.0-15.0Trinity Health SystemComment on above:Performed By: #### APTMUT, AMTHFR #### [facility] [address] [place] [address] Engagement Executive: Melchor Rubin MD #### LUPPRO #### [facility] [address] [place] [address] Engagement Executive: Temo Tipton MD [address] [place], [place] [phone] Engagement Executive: Eriberto Singhousjoselito 07-80-1395Lcfi [id number] Trinity Health SystemComment on above:Performed By: #### APTMUT, AMTHFR #### [facility] [address] [place] [address] Engagement Executive: Melchor Rubin MD #### LUPPRO #### [place] [address] [place] [address] Engagement Executive: Temo Tipton MD [address] [place] [address] Engagement Executive: Christian Hanley MDHCG, Quanton 55-49-8418OXS, Wllgl750.0 mIU/mLHigh 0-7Trinity Health SystemComment on above:Result Comment: Non-preg premeno <=5 Postmeno <=8 Male <=3 If HCG results do not concur with clinical observations, additional testing to confirm results is recommended.Performed By: #### BHCG #### [address] [place] [address] Engagement Executive: Christian Hanley MDType + Screenon 12-91-3738Xqmv + ScreenSample Expiration 07/13/2025,5805 Arm Band Number HIDE ABO/Rh(D) O POSITIVE Antibody Screen NEGATIVENoWayne HospitalComment on above:Performed By: #### TYS #### [address] [place] [address] Engagement Executive: Christian Hanley, CHANDRACETAMINOPHEN LEVELon 68-71-4146Tjpyywtgeyacm [Mass/Vol]6.4 ug/mLLow10.0-30.0[facility] HospitalComment on above:Order Comment: Reference ranges are for therapeutic limits.Performed By: #### SYED RAPHAEL, 1988-02, , 79948-8, 5643-2, 2157-03 #### [facility] ([id number]) [address] [place] [address] 626[address]PGAFYJG GLUCOSEon 42-33-6201Uvdqsjm [Mass/Vol]144 mg/dLHigh 65-99[facility] HospitalComment on above:Performed By: #### SYED RAPHAEL, 1988-02, , 58052-9, 43-2, 2157-03 #### [facility] ([id number]) [address] [place] [address] 636[address]PXI WITH AUTO DIFFERENTIALon 70-56-8579EZNEEKPSV ABSOLUTE COUNT (10*3/UL) BY AUTOMATED COUNT0.1 10*3/uLNormal0.0-0.2PAdena Health System Comment on above:Performed By: #### SYED RAPHAEL, 1988-02, , 60149-3, 5643-2, 2157-03 #### [facility] ([id number]) [address] [place] [address] 75267OSSVELDJR RELATIVE PERCENT BY AUTOMATED COUNT0.8 %Normal [facility] HospitalComment on above:Performed By: #### SYED RAPHAEL, 1988-02, , 58902-4, 5643-2, 2157-03 #### [facility] ([id number]) [address] [place] [address] 77958RDTZLYRWETW DIFFERENTIAL TYPEAUTOMATED DIFFERENTIALNormal [facility] HospitalComment on above:Performed By: #### SYED RAPHAEL, 1988-02, , 52251-9, 5643-2, 2157-03 #### [facility] ([id number]) [address] [place] [address] 82972Xcyvygruvof (Bld) [#/Vol]0.3 10*3/uLNormal0.0-0.4[facility] HospitalComment on above:Performed By: #### [facility], 1988-02, , 31391-8, 5643-2, 2157-03 #### [facility] ([id number]) [address] [place] [address] 04967HJDBISVJFYA RELATIVE PERCENT BY AUTOMATED COUNT2.1 %Normal [facility] HospitalComment on above:Performed By: #### [facility], 1988-02, , 63587-9, 5642-2, 2157-03 #### [facility] ([id number]) [address] [place] [address] 49[address]Ycdmjdkaufa distribution width (RBC) [Ratio]13.8 %Xqfsjy43.5-15 [facility] HospitalComment on above:Performed By: #### SYED RAPHAEL, 1988-02, , 58624-7, 5642-2, 2157-03 #### [facility] ([id number]) [address] [place] [address] 94650Ctiplisjog (Bld) [Volume fraction]37.6 %Omsfrv93-49ZnuKvwaeyMemorial Hermann Greater Heights HospitalComment on above:Performed By: #### SYED RAPHAEL, 1988-02, , 40140-0, 5643-2, 2157-03 #### [facility] ([id number]) [address] [place] [address] 30728Bvnmlpudno (Bld) [Mass/Vol]12.7 g/sOHkgsjd21.7-15.5PAdena Health SystemComment on above:Performed By: #### CBCA, CMP, 1988-02, , 90825-0, 5643-2, 2157-03 #### [facility] ([id number]) [address] [place] [address] 35716RLFKOJUASHP ABSOLUTE COUNT (10*3/UL) BY AUTOMATED COUNT2.9 10*3/uLNormal1.0-3.5Pro[facility] Community HospitalComment on above:Performed By: #### CBCA, CMP, 1988-02, , 51069-5, 5643-2, 2157-03 #### [facility] ([id number]) [address] [place] [address] 11413AGRJFXADKOT RELATIVE PERCENT BY AUTOMATED COUNT20.2 %Normal ProMAdventist Medical CenterComment on above:Performed By: #### CBCA, CMP, 1988-02, , 20786-7, 43-2, 2157-03 #### [facility] ([id number]) [address] [place] [address] 13914TKN (RBC) [Entitic mass]29.9 xfUiutyn39-15IdpSfjdygMemorial Hermann Greater Heights HospitalComment on above:Performed By: #### CBCA, CMP, 1988-02, , 86490-7, 5642-2, 2157-03 #### [facility] ([id number]) [address] [place] [address] 10480MDHR (RBC) [Mass/Vol]33.8 g/fDLekbzd62-33ReeKvxhcbMemorial Hermann Greater Heights HospitalComment on above:Performed By: #### CBCA, CMP, 1988-02, , 28416-6, 5643-2, 2157-03 #### [facility] ([id number]) [address] [place] [address] 64[address]NOQ (RBC) [Entitic vol]88 bXJbeatu70-027UhjCttgjg [facility] HospitalComment on above:Performed By: #### CBCA, CMP, 1988-02, , 80058-6, 5643-2, 2157-03 #### [facility] ([id number]) [address] [place] [address] 006[address]HGCSUNEEE ABSOLUTE COUNT (10*3/UL) BY AUTOMATED COUNT0.8 10*3/uLNormal0.0-0.9ProMemorial Hermann Greater Heights HospitalComment on above:Performed By: #### CBCA, CMP, 1988-02, , 08432-5, 5643-2, 2157-03 #### [facility] ([id number]) [address] [place] [address] 74265HWYIBJOLJ RELATIVE PERCENT BY AUTOMATED COUNT5.3 %Normal [facility] HospitalComment on above:Performed By: #### CBCA, CMP, 1988-02, , 18205-3, 5643-2, 2157-03 #### [facility] ([id number]) [address] [place] [address] 34078WXUVWHBBJLV ABSOLUTE COUNT BY AUTOMATED COUNT10.3 10*3/uLHigh 1.5-6.6ProMemorial Hermann [facility] Heights HospitalComment on above:Performed By: #### CBCA, CMP, 1988-02, , 95543-0, 5643-2, 2157-03 #### [facility] ([id number]) [address] [place] [address] 93777XIPLWFHZMQE RELATIVE PERCENT BY AUTOMATED COUNT71.6 %Normal [facility] HospitalComment on above:Performed By: #### CBCA, CMP, 1988-02, , 90890-5, 5643-2, 2157-03 #### [facility] ([id number]) [address] [place] [address] 51736Yqwkvott mean volume (Bld) [Entitic vol]8.1 fLNormal7-12 [facility] HospitalComment on above:Performed By: #### CBCA, CMP, 1988-02, , 73682-9, 5643-2, 2157-03 #### [facility] ([id number]) [address] [place] [address] 73390Bssfsbivk (Bld) [#/Vol]411 10*3/vNXxxpjg537-527UloKfmskc [facility] HospitalComment on above:Performed By: #### IJEOMA, CMP, 1988-02, , 96487-6, 5643-2, 2157-03 #### [facility] ([id number]) [address] [place] [address] 76032IOD COUNT4.25 X10E12/LNormal3.8-5.2PAdena Health System Comment on above:Performed By: #### IJEOMA, CMP, 1988-02, , 92238-8, 5643-2, 2157-03 #### [facility] ([id number]) [address] [place] [address] 47185JWM (Bld) [#/Vol]14.4 10*3/uLHigh4-11[facility] Comment on above:Performed By: #### CBCA, CMP, 1988-02, , 21909-4, 5643-2, 2157-03 #### [facility] ([id number]) [address] [place] [address] 35517FJBJXJQOJXLZP METABOLIC PANELon 79-23-2962Phdszfq [Mass/Vol]4.1 g/dLNormal3.2-5.3PAdena Health SystemComment on above:Performed By: #### CBCA, CMP, 1988-02, 11325-5, 11207-4, 5643-2, 2157-03 #### [facility] ([id number]) [address] [place] [address] 51645KHP [Catalytic activity/Vol]70 U/SSrmtgw10-943VirWurbgnMemorial Hermann Greater Heights HospitalComment on above:Performed By: #### SYED RAPHAEL, 1988-02, , 28092-8, 5643-2, 2157-03 #### [facility] ([id number]) [address] [place] [address] 00255SMR [Catalytic activity/Vol]22 U/LNormal<=31ProMedParnassus campusComment on above:Performed By: #### SYED RAPHAEL, 1988-02, , 94635-8, 5642-2, 2157-03 #### [facility] ([id number]) [address] [place] [address] 24458Mjutp gap [Moles/Vol]10 mmol/LNormal5-15Pro[facility] HospitalComment on above:Performed By: #### SYED RAPHAEL, 1988-02, , 73422-9, 43-2, 2157-03 #### [facility] ([id number]) [address] [place] [address] 54315KRS [Catalytic activity/Vol]22 U/LNormal<=41Pro[facility] HospitalComment on above:Performed By: #### SYED RAPHAEL, 1988-02, , 06897-4, 5643-2, 2157-03 #### [facility] ([id number]) [address] [place] [address] 89867Dcewvntjj [Mass/Vol]0.5 mg/dLNormal0.3-1.2PAdena Health SystemComment on above:Performed By: #### SYED RAPHAEL, 1988-02, , 33896-8, 5643-2, 2157-03 #### [facility] ([id number]) [address] [place] [address], [place] [address]Fomlsqf [Mass/Vol]8.8 mg/dLNormal8.5-10.5PAdena Health SystemComment on above:Performed By: #### SYED RAPHAEL, 1988-02, , 47170-0, 43-2, 2157-03 #### [facility] ([id number]) [address] [place] [address] 42668Ndchryhu [Moles/Vol]105 mmol/IUvuphc41-749UvcZgioseMemorial Hermann Greater Heights HospitalComment on above:Performed By: #### SYED RAPHAEL, 1988-02, , 07411-8, 5642-2, 2157-03 #### [facility] ([id number]) [address] [place] [address] 80271DX7 [Moles/Vol]22 mmol/ZDpaafg99-04NbeRexibyAdena Health System Comment on above:Performed By: #### SYED RAPHAEL, 1988-02, , 77549-2, 5642-2, 2157-03 #### [facility] ([id number]) [address] [place] [address] 47553Ihvgeylzol [Mass/Vol]0.86 mg/dLNormal0.40-1.00[facility] HospitalComment on above:Result Comment: METHOD TRACEABLE TO IDMS STANDARD Performed By: #### SYED RAPHAEL, 1988-02, , 69926-0, 5643-2, 2157-03 #### [facility] ([id number]) [address] [place] [address] 61535BIFH (CKD-EPI) NON-RACE DEPENDENT>^90Normal>=60S[facility] Memorial HospitalComment on above:Result Comment: eGFR not reported due to non- numeric value for Creatinine. Reported eGFR is based on the CKD-EPI 2020 equation that does not use a race coefficient.Performed By: #### SYED RAPHAEL, 1988-02, , 28852- 0, 5642-2, 2157-03 #### [facility] ([id number]) [address] [place] [address] 21009Itkknae [Mass/Vol]133 mg/xGEmcg16-63TrjJsuotzMemorial Hermann Greater Heights Hospital Comment on above:Performed By: #### SYED RAPHAEL, 1988-02, , 11922-5, 5642-2, 2157-03 #### [facility] ([id number]) [address] [place] [address] 88215Ijphsgjnz [Moles/Vol]4.3 mmol/LNormal3.5-5.0ProMemorial [facility] Heights HospitalComment on above:Performed By: #### SYED RAPHAEL, 1988-02, , 87493-7, 5642-11, 2157-03 #### [facility] ([id number]) [address] [place] [address] 27493Nolmlai [Mass/Vol]7.7 g/dLNormal6.0-8.0ProMem[facility] Heights HospitalComment on above:Performed By: #### SYED RAPHAEL, 1988-02, , 24610-9, 5642-11, 2157-03 #### [facility] ([id number]) [address] [place] [address] 16457Rcbtpg [Moles/Vol]137 mmol/FNxfxql874-478YyuSwqdjc [facility] HospitalComment on above:Performed By: #### SYED RAPHAEL, 1988-02, , 52408-6, 5642-, 2157-03 #### [facility] ([id number]) [address] [place] [address] 06207Wbsf nitrogen [Mass/Vol]8 mg/dLNormal5-23ProMemorial [facility] HospitalComment on above:Performed By: #### SYED RAPHAEL, 1988-02, , 51025-5, 5643-2, 2157-6 #### [facility] ([id number]) [address] [place] [address], FIRST FLO[place], [place] [address]TC BRAIN WO CONT STROKE ALERTon 77-10-9013UJ BRAIN WO CONT STROKE ALERTCT BRAIN WO CONT STROKE ALERT CT HEAD WITHOUT IV CONTRAST CLINICAL STATEMENT: headache, confused, nausea and vomiting Comparison study: 11/04/2024 TECHNIQUE: Axial views were obtained at 2.5 mm interval through the head without IV contrast. Automatic dose exposure reduction technique utilized. FINDINGS: The midline structures are not deviated. The ventricular system is within normal limits. The blank and white matter show normal attenuation. The posterior fossa is unremarkable. No features of raised intracranial pressure.No intracranial bleed. The IACs are unremarkable. The cerebellopontine angles are unremarkable. The temporomandibular joints show no abnormality. The osseous structures in the skull base and in the calvarium show no definite abnormality. The orbits are normal. The paranasal sinuses are clear. The mastoid air cells are clear. IMPRESSION: 1. Unremarkable study. All CT scans at this facility use dose modulation, iterative reconstruction, and/or weight based dosing when appropriate to reduce radiation dose to as low as reasonably achievable. Finalized by Abhishek Zhang MD on 07/04/2025 11:09 AMNormalProMedica Elastar Community HospitalCT CTA CAROTIDon 99-32-1129AH CTA CAROTIDCT CTA CAROTID History: Confusion. Headache. Vomiting. Exam/Technique: Contiguous axial images are obtained of the CT angiogram carotid vessels 100ml Omnipaque 350 intravenous contrast. Coronal and sagittal reconstructions were performed and reviewed. CT angiogram protocol with 3-D and volumetric scans acquired. Automatic dose exposure reduction technique utilized. Comparison: CTA brain Findings: NON VASCULAR FINDINGS: Vague mosaic attenuation of the left upper lobe likely related to air trapping.] Mucosal sinus thickening. VASCULAR FINDINGS: The aortic arch is normal. There is three-vessel configuration. The vertebral arteries arise from the subclavian arteries bilaterally with the right dominant.The left is hypoplastic. There is no features of significant stenosis in the vertebral arteries. Both carotid vessels demonstrate patency with no stenosis of the common carotid arteries, carotid bulbs and internal carotid arteries to the skull base. IMPRESSION: No significant vertebral or carotid artery stenosis. Study interpreted with NASCET criteria. Distal ICA -Area of Stenosis/Max ICA diameter. All CT scans at this facility use dose modulation, iterative reconstruction, and/or weight based dosing when appropriate to reduce radiation dose to as low as reasonably achievable. Finalized by Abhishek Zhang MD on 07/04/2025 11:27 AMNormalShelby Memorial HospitalCT CTA HEADon 98-36-3868ZM CTA HEADCT CTA HEAD CT CTA HEAD CLINICAL INFORMATION: confusion, headache vomiting. COMPARISON: None. PROCEDURE: Routine CTA [place] was obtained after the uncomplicated intravenous administration of contrast. Sagittal and coronal reformatted images with 3-D Maximum intensity projection reconstructionsof the [place] constructed under concurrent physician supervision on a independent workstation for evaluation of vascular abnormalities. Arterial blood flow was measured to assist the stroke clinical team in the diagnosis of large vessel occlusion in patients undergoing screening for acute ischemic stroke using Rapid AI software when clinically indicated. All CT scans at this facility use dose modulation, iterative reconstruction, and/or weight based dosing when appropriate to reduce radiation dose to as low as reasonably achievable. FINDINGS: Right vertebral artery is normal. Left vertebral artery is diminutive. Basilar artery is normal. Posterior cerebral arteries are normal. Internal carotid arteries are patent. Anterior cerebral arteries are normal. Anterior communicating artery is normal. The middle cerebral arteries are patent. Venous structures are normally opacified. 3-D reformatted images confirm the source data findings. IMPRESSION: * No evidence of large vessel occlusion. * Consider MRI based on clinical history. Finalized by Rajendra Muro MD on 07/04/2025 11:25 [facility] CenterDRUG SCREEN, URINEon 89-63-7401PMMVMEDBMRK/METHAMPNegativeNormalNegative [facility] Community HospitalComment on above:Order Comment: Confirmation available upon request.Result Comment: AMPH/METH screening cut off = 1000 ng/mLPerformed By: #### CBCA, CMP, 1988-5, 22921-8, 45761-1, 5643-2, 2157-6 #### [facility] ([id number]) [address] [place], [place] [address]SNegativeNormalNegativeShelby Memorial Hospital Comment on above:Order Comment: Confirmation available upon request.Result Comment: Barbiturates screening cut off value = 200 ng/mLPerformed By: #### SYED RAPHAEL, 1988-02, 18484-5, 37478-7, 5643-2, 2156-6 #### [facility] ([id number]) [address] [place] [address] [place] [address]17VQFFPGGCTOSNDRCRbjyxwdbOufmqmHbwxxejqBhcFuandp [facility] Comment on above:Order Comment: Confirmation available upon request.Result Comment: Benzodiazepines screening cut off value = 200 ng/mLPerformed By: #### SYED RAPHAEL, 1988-02, , 57015-6, 5643-2, 6 #### [facility] ([id number]) [address] [place] [address] [place] 04390ZBSBJJPSVDUWRbbbzbemHjjmwtekVgttjkweVfiWfrash [facility] Comment on above:Order Comment: Confirmation available upon request.Result Comment: Cannabinoids/THC screening cut off value = 50 ng/mLPerformed By: #### SYED RAPHAEL, 1988-02, , 35498-0, 5643-2, 2157-03 #### [facility] ([id number]) [address] [place] [address] [place] 325[address]PEUJRRT METABOLITENegativeNormalNegativeShelby Memorial HospitalComment on above:Order Comment: Confirmation available upon request. Result Comment: Cocaine screening cut off value = 300 ng/mLPerformed By: #### SYED RAPHAEL, 1988-02, , 78810-5, 5643-2, 2156-6 #### [facility] ([id number]) [address] [place] [address] 11875TTXLJQHSzqsznodSlysqhZfkejckrFlmHxzxub [facility] HospitalComment on above:Order Comment: Confirmation available upon request.Result Comment: Ecstasy screening cut off value = 500 ng/mLPerformed By: #### SYED RAPHAEL, 1988-02, 53264-7, 98259-4, 5643-2, 2157-03 #### [facility] ([id number]) [address] [place] [address] 91454KIEXIJOCPWnzugeidQxomhlYwgmkyggMwcDoyfzr [facility] Comment on above:Order Comment: Confirmation available upon request.Result Comment: Methadone screening cut off value = 300 ng/mL.Performed By: #### IJEOMA, SYED, 1988-02, , 39936-6, 5643-2, 2157-03 #### [facility] ([id number]) [address] [place] [address] 62637DMTOBNKSoobodouKugtvaSscpgcvvWibPlyvmx [facility] HospitalComment on above:Order Comment: Confirmation available upon request.Result Comment: Opiates screening cut off value = 300 ng/mL This test is used for the detection of codeine, hydrocodone (>1000 ng/mL), morphine and hydromorphone (>900 ng/mL) in urine.Performed By: #### SYED RAPHAEL, 1988-02, , 39217-4, 5643-2, 2157-03 #### [facility] ([id number]) [address] [place] [address] [place] [address]VPOEWWWDGDnoylcpkHsreyaTtcshwomDpcDsbfqk [facility] Comment on above:Order Comment: Confirmation available upon request.Result Comment: Oxycodone screening cut off value = 300 ng/mL This test is used for the detection of oxycodone and oxymorphone in urine.Performed By: #### SYED RAPHAEL, 1988-02, , 72084-4, 5643-2, 2157-03 #### [facility] ([id number]) [address] [place] [address] [place] 28284CWPFQFTNMEEQDSugesjghDyxlbyUcaapfshOahMrmwos [facility] Comment on above:Order Comment: Confirmation available upon request.Result Comment: Phencyclidine screening cut off value = 25 ng/mLPerformed By: #### SYED RAPHAEL, 1988-02, , 82115-5, 5642-2, 2157-03 #### [facility] ([id number]) [address] [place] [address] 77361SPPODIJas 91-83-1139Xdashqq [Mass/Vol]mg/dLNormal<=0.080 [facility] HospitalCommclaren oakland on above:Result Comment: This report is intended for use in clinical monitoring or management of patients.Performed By: #### SYED RAPHAEL, 1988-02, , 93771-6, 5642-11, 2157-03 #### [facility] ([id number]) [address] [place] [address] 15269GOE-CMDL, SERUMon 01-08-1889ELI.beta subunit Nt1019 m[IU]/mLNormalProMedica Elastar Community HospitalCommclaren oakland on above:Order Comment: WEEKS (SINCE LMP) MIU/mL3 WEEKS 5 - 504 WEEKS 5 - 4265 WEEKS 18 - 7,3406 WEEKS 1,080- 56,5007-8 WEEKS 7,650 - 229,0009-12 WEEKS 25,700 - 288,17880-34 WEEKS 13,300 - 254,68726-99 WEEKS4,060 - 165,02851-94 WEEKS 3,640 - 117,000MALES AND NON- FEMALES - <5 MIU/mLThis test has been FDA approved for use inpregnancy only. Elevated levels are notnecessarily diagnostic for trophoblasticor nontrophoblastic neoplasms. Performed By: #### SYED RAPHAEL, 1988-02, , 95469-1, 5643-2, 2157-03 #### [facility] ([id number]) [address] [place] [address] 31874UBISVKKAIT A1Con 56-95-1457Zwyplyp [Mass/Vol]94 mg/dLNormal [facility] HospitalComment on above:Performed By: #### SYED RAPHAEL, 1988-02, , 03669-4, 5643-2, 2157-03 #### [facility] ([id number]) [address] [place] [address] 80825ZbV3e (Bld) [Mass fraction]4.9 %Normal4.4-5.6ProMemorial Hermann Greater Heights HospitalComment on above:Result Comment: ADA Guidelines Result HgbA1c Normal : less than 5.7 % Prediabetes : 5.7 % to 6.4 % Diabetes : > 6.4 % Use with caution in patients with abnormal hemoglobin variants as the half-life of red blood cells and in vivo glycation rates are affected.Performed By: #### SYED RAPHAEL, 1988-02, , 78898-1, 56-2, 2157-03 #### [facility] ([id number]) [address] [place] [address] 10420ZZGKFAIKPoj 05-90-9459Ogaocozat [Mass/Vol]2.3 mg/dLNormal 1.8-2.6[facility] HospitalComment on above:Performed By: #### SYED RAPHAEL, 1988-02, , 79409-2, 5643-2, 2157-03 #### [facility] ([id number]) [address] [place] [address] 63148GCQZ NURSING URINE MACROSCOPIC UAon 10-89-2817EZMTAMPUU KRISTA NegativeNormalNegativeProMemorial Hermann Greater Heights HospitalComment on above:Performed By: #### SYED RAPHAEL, 1988-02, , 65072-8, 5643-2, 2157-03 #### [facility] ([id number]) [address] [place] [address] 91669HDLGE/HGB NURNegativeNormalNegAdena Fayette Medical Center Comment on above:Performed By: #### IJEOMA, CMP, 1988-02, , 47370-3, 5643-2, 2157-03 #### [facility] ([id number]) [address] [place] [address] [place] 51209NAYZMGO NURNegativeNormalNegativeShelby Memorial Hospital Comment on above:Performed By: #### IJEOMA, CMP, 1988-02, , 35858-9, 5643-2, 2157-03 #### [facility] ([id number]) [address] [place] [address] [place] 51530QKTVMQV NURNegativeNormalNegAdena Fayette Medical Center Comment on above:Performed By: #### IJEOMA, CMP, 1988-02, , 78543-8, 5643-2, 2157-03 #### [facility] ([id number]) [address] [place] [address] [place] 16942RYAAUWMSS ESTERASE NURNegativeProgress West HospitalalNegAdena Fayette Medical CenterComment on above:Performed By: #### IJEOMA, CMP, 1988-02, , 12860-7, 5643-2, 2157-03 #### [facility] ([id number]) [address] [place] [address] [place] 48604USMBIBF NURNegativeNormalNegativeShelby Memorial Hospital Comment on above:Performed By: #### ANISHA, CMP, 1988-02, , 23934-8, 5643-2, 2157-03 #### [facility] ([id number]) [address] [place] [address] [place] 20020ML NUR7.3Ikhuvt6.0, 6.0, 6.5, 7.0, 7.5, 8.0, 8.5, 5.5Pro[facility] Elast[facility] Community HospitalComment on above:Performed By: #### SYED RAPHAEL, 1988-02, , 23792-9, 5643-2, 2157-03 #### [facility] ([id number]) [address] [place] [address] 62848GAZUYMM NUR30 mg/dLAbnormalNegativeShelby Memorial Hospital Comment on above:Performed By: #### SYED RAPHAEL, 1988-02, , 90014-5, 5642-2, 2157-03 #### [facility] ([id number]) [address] [place] [address] 00741NLHDINYZ GRAVITY NUR1.449Gfbyef3.010, 1.015, 1.020, 1.025 [facility] Community HospitalComment on above:Performed By: #### IJEOMA [facility], 1988-02, , 17332-0, 5642-2, 2157-03 #### [facility] ([id number]) [address] [place] [address] 56236YOPCJBOOPJQK NUR0.2 E.U./dLNormalShelby Memorial Hospital Comment on above:Performed By: #### SYED RAPHAEL, 1988-02, , 49140-1, 2, 2157-03 #### [facility] ([id number]) [address] [place] [address] 93542VLWW , URINE (NUCG)on 62-39-2659Dekt HCG ( test) Ql (U)PositiveAbnormalNegative, IndeterminateShelby Memorial Hospital Comment on above:Performed By: #### SYED RAPHAEL, 1988-02, , 55602-3, 5643-2, 2157-03 #### [facility] ([id number]) [address] [place] [address] 03383KPWHGBIUXR LEVELon 91-20-0041KOAKXUKRFT<^4.2Ugxplz0.0-25.0 [facility] HospitalComment on above:Order Comment: Reference ranges are for therapeutic limits.Performed By: #### SYED RAPHAEL, 1988-02, , 22255-1, 5643-2, 2157-03 #### [facility] ([id number]) [address] [place] [address] 02568AYXQ I, HIGH SENSITIVITY 1 HOURon 83-53-4915QJANKLIK I, HIGH SENSITIVITY2 ng/LNormal<16[facility] HospitalComment on above:Performed By: #### SYED RAPHAEL, 1988-02, , 06703-2, 56-2, 2157-03 #### [facility] ([id number]) [address] [place] [address] 88154JIPSFTPU I, HIGH SENSITIVITY 0 HOURon 63-27-1728QTQRXAYJ I, HIGH SENSITIVITY<^2Normal<16[facility] HospitalComment on above:Performed By: #### SYED RAPHAEL, 1988-02, , 22679-9, 56-2, 2157-03 #### [facility] ([id number]) [address] [place] [address], [place] 245[address]SBNLU CULTUREon 87-87-4905Phnqpqql identified Cx Nom (U)CULTURE RESULTS <10,000 ORGANISMS/mL NORMAL URO GENITAL FLORANormalShelby Memorial Hospital Comment on above:Performed By: #### SYED RAPHAEL, 1988-02, , 68312-7, 5642-2, 2157-03 #### [facility] ([id number]) [address] [place] [address] 54182FJ PREG LESS THAN 14 WKS WITH TRANSVAGINALon 27-54-1860VW PREG LESS THAN 14 WKS WITH TRANSVAGINALUS PREG LESS THAN 14 WKS WITH TRANSVAGINAL Pelvic ultrasound History:Pelvic pain. Transient alteration of awareness. Comparison:08/25/2023 Findings: Transabdominal and transvaginal sonographic evaluation of the pelvis. Transabdominal imaging performed to evaluate for extra adnexal pelvic pathology. Transvaginal imaging performed for better delineation of the adnexal and endometrial contents. Uterus measures 7.6 x 3.3 x 3.9 cm. A gestational sac is seen, with a mean sac diameter (MSD) of 5 mm. A yolk sac measures <=7 mm. No pole is visualized. No subchorionic fluid collection. Ovaries unremarkable the right measuring 3.7 x 2.2 x 2.8 cm, the left 3.8 x 2.7 x 3.7 cm. No free pelvic fluid. Impression: The gestational sac with MSD of <16 mm has a substantial possibility of representing an early viable . If failure is clinically suspected, recommend follow-up ultrasound in 7-10days. Otherwise, recommend routine follow-up. Nba KOCH, et al. Diagnostic Criteria for Nonviable Early in the First Trimester. N Engl J Med. 2013 Jul 10;369(15):1443-03. Finalized by Subhash Hollis MD on 07/04/2025 1:02 [facility] CampusUrine Cultureon 54-99-4882Mgqfysjz identified Cx Nom (U)>100,000 colonies/ml mixed bacterial skin contaminants 2 Days PERFORMED BY: [address] [address] PATHOLOGIST CEMENT WORKER JOSE PAULINO M.D.[facility] ER Physician GroupComment on above: Performed By: #### CUU #### [address] [address] USAED Clinical Summaryon 87-75-6744CD Clinical Summary [address] [address] ED Clinical Summary Person Information Name: Yolanda Villanueva [facility] Age: 25 Years : 2000 Sex: Female PCP: Marital Status: Phone: Race: Ethnicity: Language: Colombian Visit Reason: Hematuria; vomiting blood Acuity: 3 [...] Follow up: Discharge Orders: Patient Education Information: [facility] Poison Help line: . [facility] Hotline: [place] Tobacco Quit Line: [place], [place]) [address]: [phone] [place], [place]) [address]: [phone] [facility] [address] [place], [place]: [phone] [facility] HospitalCBC with Auto Differentialon 80-71-1706Schbkpppk (Bld) [#/Vol]0.07 10*3/uLBon Secours Mercy HealthBasophils/100 WBC (Bld)0 %0 - 2 %[facility] HealthEosinophils (Bld) [#/Vol][facility] Eosinophils/100 WBC (Bld)0 %Low1 - 4 %[facility] HealthErythrocyte distribution width (RBC) [Ratio]13.2 %11.8 - 14.4 %[facility] Hematocrit (Bld) [Volume fraction]36.3 %36.3 - 47.1 %[facility] Hemoglobin (Bld) [Mass/Vol]12.4 g/dL11.9 - 15.1 g/dLBon [facility] Immature granulocytes (Bld) [#/Vol]0.13 10*3/uLBon [facility] HospitalImmature granulocytes/100 WBC (Bld)1 %Aehx3UtyUva Health University HospitalInterpretation and review of laboratory resultsAbnormalBon [facility] HospitalLymphocytes/100 WBC (Bld)9 %Low24 - 43 %[facility] HospitalLymphocytes/100 WBC (Bld)1.61 %[facility] CenterH (RBC) [Entitic mass]30.4 pg25.2 - 33.[address] Francis Medical CenterHC (RBC) [Mass/Vol]34.2 g/dL28.4 - 34.8 g/dLBon Mer[facility] Health Allen HospitalMCV (RBC) [Entitic vol]89.0 fL82.6 - 102.9 fLUva Health University Hospital Monocytes/100 WBC (Bld)3 %3 - 12 %[facility] HospitalMonocytes/100 WBC (Bld)0.59 %[facility] HospitalNeutrophils/100 WBC (Bld)87 %High36 - 65 %[facility] HospitalNucleated RBC/100 WBC (Bld) [Ratio]0.0 %0.0 per 100 WBCUva Health University HospitalPlatelet mean volume (Bld) [Entitic vol]9.6 fL8.1 - 13.5 fL [facility] HospitalPlatelets (Bld) [#/Vol]431 10*3/uLBon [facility] Allen HospitalRBC (Bld) [#/Vol]4.08 10*6/uL3.95 - 5.11 m/uLUva Health University Hospital Segmented neutrophils/100 WBC (Bld)15.72 %[facility]ospital Corporation of AmericaWBC other (Bld) [#/Vol]18.1HighClinch Valley Medical CenterCBC with Diffon [id number]. Basophil0.07 k/uLNormal0.00-0.20[facility] Comment on above:Performed By: #### CDP, CP #### [address] [place] [address] Engagement Executive: Juana Singh. Eosinophil<0.31Dwxbdv7.00-0.44MerAdena Regional Medical Center HospitalComment on above:Performed By: #### CDP, CP #### [address], [place] [address] Engagement Executive: MDAbs. FranciscoImm.Granulocyte0.13 k/uLNormal0.00-0.30[facility] HospitalComment on above:Performed By: #### CDP, CP #### [address] [place], [place] [address] Engagement Executive: Juana Singh.Neutrophil (Seg)15.72 k/uLHigh1.50-8.10[facility] HospitalComment on above:Performed By: #### CDP, CP #### [address] [place], [place] [address] Engagement Executive: Christian Hanley MDBasophils/100 WBC (Bld)0 %Normal0-2[facility] HospitalComment on above:Performed By: #### CDP, CP #### [address] [place], [place] [address] Engagement Executive: Christian Hanley MDEosinophils/100 WBC (Bld)0 %Low1-4[facility] HospitalComment on above:Performed By: #### CDP, CP #### [address] [place], [facility]83 Engagement Executive: Christian Hanley MDErythrocyte distribution width (RBC) [Ratio]13.2 % Jxzwye66.8-14.4Trinity Health SystemComment on above:Performed By: #### CDP, CP #### [address] [place] [address] Engagement Executive: Christian Hanley MDHematocrit (Bld) [Volume fraction]36.3 %Normal 36.3-47.1MOhio State Health System HospitalComment on above:Performed By: #### CDP, CP #### [address] [place], [facility]83 Engagement Executive: Christian Hanley MDHemoglobin (Bld) [Mass/Vol]12.4 g/dLNormal 11.9-15.1MOhio State Health System HospitalComment on above:Performed By: #### CDP, CP #### [address] [place], [facility]83 Engagement Executive: Jessy Singhmature granulocytes/100 WBC (Bld)1 %Nuzo2FscspOhiohealth [facility] Hospital HospitalComment on above:Performed By: #### CDP, CP #### [address] [place], [place] [phone] Engagement Executive: Frank Singhmphocytes (Bld) [#/Vol]1.61 10*3/uLNormal 1.10-3.70Trinity Health SystemComment on above:Performed By: #### CDP, CP #### [address] [place], [facility]83 Engagement Executive: Frank Singhmphocytes/100 WBC (Bld)9 %Yjz16-64HrymyTrinity Health SystemComment on above:Performed By: #### CDP, CP #### [address] [place], [place] [phone] Engagement Executive: JOSÉ LUIS SinghCH (RBC) [Entitic mass]30.4 liJxwxor67.2-33.5 [facility] HospitalComment on above:Performed By: #### CDP, CP #### [address] [place] [address] Engagement Executive: JOSÉ LUIS SinghCHC (RBC) [Mass/Vol]34.2 g/cHEufvck41.4-34.8Trinity Health SystemComment on above:Performed By: #### CDP, CP #### [address] [place], [place] [phone] Engagement Executive: JOSÉ LUIS SinghCV (RBC) [Entitic vol]89.0 lKMnpiro61.6-102.9 [facility] Health SystemComment on above:Performed By: #### CDP, CP #### [address] [place], [place] [phone] Engagement Executive: JOSÉ LUIS Singhonocytes (Bld) [#/Vol]0.59 10*3/uLNormal0.10-1.20 [facility] Health SystemComment on above:Performed By: #### CDP, CP #### [address] [place], [place] [phone] Engagement Executive: JOSÉ LUIS Singhonocytes/100 WBC (Bld)3 %Normal3-12Trinity Health SystemComment on above:Performed By: #### CDP, CP #### [address] [place], [place] [phone] Engagement Executive: Christian Hanley MDNeutrophil (Seg)87 %Uuxe25-49DdpquTrinity Health System Comment on above:Performed By: #### CDP, CP #### [address] [place], [place] [phone] Engagement Executive: Christian Hanlye MDNRBC Automated0.0 per 100 WBCNormal0.0Trinity Health SystemComment on above:Performed By: #### CDP, CP #### [address] [place], [facility]83 Engagement Executive: Benton Singh mean volume (Bld) [Entitic vol]9.6 fL Normal8.1-13.5[facility] HospitalComment on above:Performed By: #### CDP, CP #### [address] [place] [address] Engagement Executive: Elvis Singh (Bld) [#/Vol]431 10*3/wRIflplm511-954 [facility] HospitalComment on above:Performed By: #### CDP, CP #### [address] [place] [address] Engagement Executive: SAM SinghBC (Bld) [#/Vol]4.08 10*6/uLNormal3.95-5.11[facility] HospitalComment on above:Performed By: #### CDP, CP #### [address] [place], [place] [phone] Engagement Executive: NEY SinghBC (Bld) [#/Vol]18.1 10*3/uLHigh3.5-11.3[facility] HospitalComment on above:Performed By: #### CDP, CP #### [address] [place] [address] Engagement Executive: JESSICA Singhomp Metabolic Profon 09-02-0205Cjiyfnf [Mass/Vol] 4.9 g/dLNormal3.5-5.2[facility] HospitalComment on above:Performed By: #### CDP, CP #### [address] [place], [place] [phone] Engagement Executive: Christian Hanley MDAlbumin/Glob Ratio1.1Dlqzmc7.0-2.5MerAdena Regional Medical Center HospitalComment on above:Performed By: #### CDP, CP #### [address] [place] [address] Engagement Executive: Colt Singh Phos83 U/ZOafxkd37-672IpgpvTrinity Health SystemComment on above:Performed By: #### CDP, CP #### [address] [place] [address] Engagement Executive: Christian Hanley MDALT [Catalytic activity/Vol]16 U/BQkyyiz48-30Fruln [facility]iff[facility] HospitalComment on above:Performed By: #### CDP, CP #### [address] [place] [address] Engagement Executive: Inez Singh gap [Moles/Vol]18 mmol/LHigh9-16MerAdena Regional Medical Center HospitalComment on above:Performed By: #### CDP, CP #### [address] [place] [address] Engagement Executive: Christian Hanley MDAST [Catalytic activity/Vol]22 U/GFoxagl29-86CxpybTrinity Health SystemComment on above:Performed By: #### CDP, CP #### [address] [place] [address] Engagement Executive: Christian Hanley MDBilirubin [Mass/Vol]0.5 mg/dLNormal0.00-1.20MerAdena Regional Medical Center HospitalComment on above:Performed By: #### CDP, CP #### [address] [place] [address] Engagement Executive: Christian Hanley MDBUN/CRE Rkfyh5Tsr1-34Bmncs [facility] HospitalComment on above:Performed By: #### CDP, CP #### [address] [place] [address] Engagement Executive: JESSICA Singhalcium [Mass/Vol]9.7 mg/dLNormal8.6-10.4MerAdena Regional Medical Center HospitalComment on above:Performed By: #### CDP, CP #### [address] [place] [address] Engagement Executive: JESSICA Singhhloride [Moles/Vol]101 mmol/ZKlbfov26-072FzndtTrinity Health SystemComment on above:Performed By: #### CDP, CP #### [address] [place] [address] Engagement Executive: Christian Hanley MDCO2 [Moles/Vol]21 mmol/CObanmu17-93KwhevTrinity Health SystemComment on above:Performed By: #### CDP, CP #### [address] [place] [address] Engagement Executive: JESSICA Singhreatinine [Mass/Vol]0.9 mg/dLNormal0.50-0.90Trinity Health SystemComment on above:Performed By: #### CDP, CP #### [address] [place], [place] [phone] Engagement Executive: Christian Hanley MDGFR/1.73 sq M.predicted among non-blacks MDRD (S/P/Bld) [Vol rate/Area]mL/min/{1.73_m2}Normal>60Trinity Health SystemComment on above:Result Comment: These results are not intended for [...] or following therapy that affects renal tubular secretion.Performed By: #### CDP, CP #### [address] [place], [place] [phone] Engagement Executive: Christian Hanley MDGlucose [Mass/Vol]152 mg/vRMnjz28-81Tbccl [place] HospitalComment on above:Performed By: #### CDP, CP #### [address] [place] [address] Engagement Executive: AWILDA Singhotassium [Moles/Vol]3.8 mmol/LNormal3.7-5.3[facility] HospitalComment on above:Result Comment: Specimen hemolysis has exceeded the interference as defined by Macy. Value may be falsely increased. Suggest recollection if clinically indicated.Performed By: #### CDP, CP #### [address] [place], [place] [phone] Engagement Executive: Christian Hanley MDProtein [Mass/Vol]8.4 g/dLNormal6.6-8.7MerConnecticut HospiceComment on above:Performed By: #### CDP, CP #### [address] [place], [facility]83 Engagement Executive: FREYA Singhodium [Moles/Vol]140 mmol/VLqabem289-807Xpqmn [facility] HospitalComment on above:Performed By: #### CDP, CP #### [address] [place], [place] [phone] Engagement Executive: Christian Hanley MDUrea nitrogen [Mass/Vol]7 mg/dLNormal6-20MerConnecticut HospiceComment on above:Performed By: #### CDP, CP #### [address] [place], [place] [phone] Engagement Executive: JESSICA Singhomprehensive Metabolic Panelon 46-06-7980Xghicjf [Mass/Vol]4.9 g/dL3.5 - 5.2 g/dLBon [facility] HospitalAlbumin/Globulin [Mass ratio]1.4 {ratio}1.0 - 2.5Bon [facility] HospitalALP [Catalytic activity/Vol]83 U/L35 - 104 U/LBon [facility] HospitalALT [Catalytic activity/Vol]16 U/L10 - 35 U/LBon [facility] HospitalAnion gap [Moles/Vol]18 mmol/LHigh9 - 16 mmol/LBon SecZanesville City HospitalAST [Catalytic activity/Vol]22 U/L10 - 35 U/LBon SecZanesville City HospitalBilirubin [Mass/Vol]0.5 mg/dL0.00 - 1.20 mg/dLBon [facility] HospitalCalcium [Mass/Vol]9.7 mg/dL8.6 - 10.4 mg/dLBon [facility] Chloride [Moles/Vol]101 mmol/L98 - 107 mmol/LBon [facility] HospitalCO2 [Moles/Vol]21 mmol/L20 - 31 mmol/LBon [facility] HospitalCreatinine [Mass/Vol] 0.9 mg/dL0.50 - 0.90 mg/dLBon [facility] HospitalEst, Glom Filt Rate- PINFBon [facility] HospitalComment on above: These results are not intended [...] therapy that affects renal tubular secretion. Glucose [Mass/Vol]152 mg/hGSfoh47 - 99 mg/dLBon [facility] Interpretation and review of laboratory resultsAbnormalUva Health University Hospital Potassium [Moles/Vol]3.8 mmol/L3.7 - 5.3 mmol/LBon [facility] HospitalComment on above:Specimen hemolysis has exceeded the interference as defined by Macy. Value may be falsely increased. Suggest recollection if clinically indicated. Protein [Mass/Vol]8.4 g/dL6.6 - 8.7 g/dLBon [facility] HospitalSodium [Moles/Vol]140 mmol/L136 - 145 mmol/LBon [facility] HospitalUrea nitrogen [Mass/Vol]7 mg/dL6 - 20 mg/dLBon [facility] HospitalUrea nitrogen/Creatinine [Mass ratio]8 mg/mgLow9 - 20Bon [facility] HospitalDrug Scr, Abuse, Uron 80-20-5576Tozhaloidtw(s),UrPositiveAbnormalNEGMercy Richmond HospitalComment on above:Result Comment: Cutoff: 50 ng/mlPerformed By: #### APTMUT, AMTHFR #### [facility] [address] [place] [address] Engagement Executive: Melchor Rubin MD #### LUPPRO #### [address] [address] Engagement Executive: Temo Tipton MD [address] [place], [place] [phone] Engagement Executive: Marline Singhtamine(s),UrNegativeNormalNEGMercy Veterans Administration Medical CenterCommclaren oakland on above:Result Comment: Cutoff: 1000 ng/mLPerformed By: #### APTMUT, AMTHFR #### [facility] [address] [place] [address] Engagement Executive: Melchor Rubin MD #### LUPPRO #### [address] [address] Engagement Executive: eTmo Tipton MD [address] [place], [place] [phone] Engagement Executive: Christian Hanley MDBarbiturate(s),UrNegativeNormalNEGMercy Richmond HospitalCommclaren oakland on above:Result Comment: Cutoff: 200 ng/mlPerformed By: #### APTMUT, AMTHFR #### [facility] [address] [place] [address] Engagement Executive: Melchor Rubin MD #### LUPPRO #### [address] [address] Engagement Executive: Temo Tipton MD [address] [place], [place] [phone] Engagement Executive: Christian Hanley MDBenzodiazepine(s)NegativeNormalNEGMercy Richmond HospitalComment on above:Result Comment: Cutoff: 200 ng/mlPerformed By: #### APTMUT, AMTHFR #### [facility] [address] [place] [address] Engagement Executive: Melchor Rubin MD #### LUPPRO #### [facility] [address] [place] [address] Engagement Executive: Temo Tipton MD [address] [place], [place] [phone] Engagement Executive: JESSICA Singhocaine MetaboliteNegativeNormalNEGTrinity Health SystemCommclaren oakland on above:Result Comment: Cutoff: 300 ng/mlPerformed By: #### APTMUT, AMTHFR #### [facility] [address] [place] [address] Engagement Executive: Melchor Rubin MD #### LUPPRO #### [address] [address] Engagement Executive: Temo Tipton MD [address] [place] [address] Engagement Executive: Christian Hanley MDFentanyl, UrineNegativeNormalNEGTrinity Health SystemCommclaren oakland on above:Result Comment: Cutoff: 5 ng/mlPerformed By: #### APTMUT, AMTHFR #### [facility] [address] [place] [address] Engagement Executive: Melchor Rubin MD #### LUPPRO #### [facility] [address] [place] [address] Engagement Executive: Temo Tipton MD [address] [place] [address] Engagement Executive: Christian Hanley MDInterpretive InfoThis method is a screening test to detect only these drug classes as part of aNormalTrinity Health SystemCommclaren oakland on above:Result Comment: medical workup. Confirmatory testing by another method should be ordered if clinically indicated.Performed By: #### APTMUT, AMTHFR #### [facility] [address] [place] [address] Engagement Executive: Melchor Rubin MD #### LUPPRO #### [facility] [address] [place] [address] Engagement Executive: Temo Tipton MD [address] [place], [place] [phone] Engagement Executive: JOSÉ LUIS Singhethadone Ql (U)NegativeNormalNEGMercy Richmond HospitalComment on above:Result Comment: Cutoff: 300 ng/mlPerformed By: #### APTMUT, AMTHFR #### [facility] [address] [place] [address] Engagement Executive: Melchor Rubin MD #### LUPPRO #### [address] [address] Engagement Executive: Temo Tipton MD [address] [place] [address] Engagement Executive: Christian Hanley MDOpiate(s), UrNegativeNormalNEGMerAdena Regional Medical Center HospitalComment on above:Result Comment: Cutoff: 300 ng/ml Note: The Opiate screen is not intended to detect Oxycodone.Performed By: #### APTMUT, AMTHFR #### [facility] [address] [place] [address] Engagement Executive: Melchor Rubin MD #### LUPPRO #### [facility] [address] [place] [address] Engagement Executive: Temo Tipton MD [address] [place] [address] Engagement Executive: Christian Hanley MDOxycodone, UrineNegativeNormalNEGMercy Richmond HospitalComment on above:Result Comment: Cutoff: 100 ng/mlPerformed By: #### APTMUT, AMTHFR #### [facility] [address] [place] [address] Engagement Executive: Melchor Rubin MD #### LUPPRO #### [address] [address] Engagement Executive: Temo Tipton MD [address] [place] [phone] Engagement Executive: Rey Singhcyclidine, UrNegativeNormalNEGMerConnecticut HospiceComment on above:Result Comment: Cutoff: 25 ng/mlPerformed By: #### APTMUT, AMTHFR #### [facility] [address] [place] [address] Engagement Executive: Melchor Rubin MD #### LUPPRO #### [address] [phone] Engagement Executive: Temo Tipton MD [address] [place] [phone] Engagement Executive: Christian Hanley MDHCG, Quanton 50-75-0498RBC, Eyoqu913.0 mIU/mLHigh 0-7Trinity Health SystemCommclaren oakland on above:Result Comment: Non-preg premeno <=5 Postmeno <=8 Male <=3 If HCG results do not concur with clinical observations, additional testing to confirm results is recommended.Performed By: #### APTMUT, AMTHFR #### [facility] [address] [place] [address] Engagement Executive: Melchor Rubin MD #### LUPPRO #### [address] [phone] Engagement Executive: Temo Tipton MD [address] [place], [place] 684[address]83 Engagement Executive: Christian Hanley MDHCG, Quantitative, Pregnancyon 40-80-0156DIA.beta subunit Qn202.0 m[IU]/mLHighUva Health University HospitalComment on above: Non-preg premeno <=5 Postmeno <=8 Male <=3 If HCG results do not concur with clinical observations, additional testing to confirm results is recommended. Interpretation and review of laboratory resultsAbnormalBon [facility] Bon [facility] HospitalLactic Acidon 71-17-2399Nvgpjpo (BldV) [Moles/Vol]1.6 mmol/L0.5 - 2.2 mmol/LBon [facility] HospitalLactate [Moles/Vol]1.6 mmol/L Normal0.5-2.2[facility] Administration Medical CenterComment on above:Performed By: #### APTMUT, AMTHFR #### [facility] [address] [place] [address] Engagement Executive: Melchor Rubin MD #### LUPPRO #### [facility] [address] [place], [place] [phone] Engagement Executive: Temo Tipton MD [facility] [address] [facility] [place] [address] Engagement Executive: Christian Hanley MDNo Panel Informationon 65-57-5355Zez [facility] HospitalUS OB TRANSVAGINALon 86-60-2395AI OB TRANSVAGINALEXAMINATION: FIRST TRIMESTER OBSTETRIC ULTRASOUND 06/20/2025 TECHNIQUE: first [...] Sac: Not definitively identified. Embryo(<11wk) /Fetus(>=11wk): Single [place] Rump Length: Not visualized. Rate of Cardiac [...] by: Jean Paul Carranza MD 06/20/25 Final resultNormalMercy Paulina Meyers is a 2 mm intrauterine cystic structure which may represent very early intrauterine gestation. The internal contents including the yolk sac, embryo and cardiac activity are not visualized at this time. Continue follow-up study and correlation with beta HCG level recommended. [facility] CONSOLIDATEDEXAMINATION: FIRST TRIMESTER OBSTETRIC ULTRASOUND 06/20/2025 TECHNIQUE: first [...] Sac: Not definitively identified. Embryo(<11wk) /Fetus(>=11wk): Single [place] Rump Length: Not visualized. Rate of Cardiac Activity not visualized. Right ovary: 4.1 x 3.1 x 2.2 cm. Left ovary: 3.5 x 3.7 x 3.1 cm. Free fluid: No significant free fluid. Measurements: Estimated gestational age by current ultrasound: Too early to determine. Estimated gestational age by LMP/prior ultrasound: Too early to determine. Estimated Due Date: Too early to determine. [facility] Jean Paul Felipe MD - 06/20/2025 EXAMINATION: FIRST TRIMESTER OBSTETRIC [...] Sac: Not definitively identified. Embryo(<11wk) /Fetus(>=11wk): Single [place] Rump Length: Not visualized. Rate of Cardiac [...] and correlation with beta HCG level recommended. [facility] observation (narrative)U[facility] Health University HospitalUS OB TRANSVAGINALOrdered By: Jean Paul Carranza on 63-35-8172Tfr [facility] Work Phone: Urinalysis w/ Microon 29-10-8484RbgrnijiBPPOXInfmsdld NONETrinity Health SystemComment on above:Performed By: #### UAMIC #### [facility] [address] [place] [address] [place] [address] Engagement Executive: Rebecca Singhirubin, SemiQt,UrNegativeNormalNEGTrinity Health SystemComment on above:Performed By: #### UAMIC #### [facility] [address] [place] [address] [place] [address] Engagement Executive: Bessy Singh, UrineNegativeNormalProMedica Flower Hospital Comment on above:Performed By: #### UAMIC #### [address] [place] [address] Engagement Executive: Bryan Singh TO 2NormalTrinity Health SystemComment on above:Result Comment: HYALINEPerformed By: #### UAMIC #### [address] [place], [place] [phone] Engagement Executive: JESSICA Singhlarity (U)ClearNormalCLEARTrinity Health System Comment on above:Performed By: #### UAMIC #### [facility] [address] [place] [address] Dr. [place], [place] [phone] Engagement Executive: JESSICA Singholor (U)YellowNormalYWood County Hospital Comment on above:Performed By: #### UAMIC #### [facility] [address] [place] [address] Dr. [place]ardo, [place] [phone] Engagement Executive: Christian Hanley MDEpithelial cells LM Ql (Urine sed)2 TO 4Pyptom1-93 [facility] Health SystemComment on above:Performed By: #### UAMIC #### [address] [place], [place] [phone] Engagement Executive: Christian Hanley MDGlucose Ql (U)NegativeNormalNEGOhiohealth Dublin Methodist Hospital HospitalComment on above:Performed By: #### UAMIC #### [facility] [address] [place] [address] Dr. [place]ardo, [place] [phone] Engagement Executive: Christian Hanley MDKetones Ql (U)2+ mg/dLAbnormalNEGOhiohealth Dublin Methodist Hospital HospitalComment on above:Performed By: #### UAMIC #### [facility] [address] [place] [address] Dr. [place]ardo, [place] [phone] Engagement Executive: Christian Hanley MDLeukocyte esterase Test strip Ql (U)NegativeNormal NEGTrinity Health SystemComment on above:Performed By: #### UAMIC #### [facility] [address] [place] [address] [place] [address] Engagement Executive: JOSÉ LUIS Singhucus StrandsTRACEAbnormalNONEMeTurning Point Mature Adult Care Unit HospitalComment on above:Performed By: #### UAMIC #### [facility] [address] [place] [address] Dr. [place]ardo, [place] [phone] Engagement Executive: Christian Hanley MDNitrite,UrNegativeNormalNEGTrinity Health System Comment on above:Performed By: #### UAMIC #### [facility] [address] [place] [address] [place] [address] Engagement Executive: AWILDA Singh,Ur8.1Onhjgx7.0-9.0Trinity Health SystemComment on above:Performed By: #### UAMIC #### [facility] [address] [place] [address] Engagement Executive: AWILDA Singhrotein Ql (U)1+ mg/dLAbnormalNEGTrinity Health SystemComment on above:Performed By: #### UAMIC #### [facility] [address] [place] [address] [place] [address] Engagement Executive: Luis Carlos Singh. [place],Ur1.729Nlofrc3.010-1.020Trinity Health SystemComment on above:Performed By: #### UAMIC #### [facility] [address] [place] [address] Dr. [place]ardo, [place] [address] Engagement Executive: Louann Singh RBC's0 TO 8Qqsoov2-6JkpxnAkron Children's Hospital Comment on above:Performed By: #### UAMIC #### [facility] [address] [place] [address] Dr. [place], [place] [address] Engagement Executive: Louann Singh WBC's0 TO 5Xbvsqb6-8BccnnTrinity Health System Comment on above:Performed By: #### UAMIC #### [facility] [address] [place] [address] Engagement Executive: Ele Singhbilinogen,UrNormalNormal0.0-1.0Tr[facility] Health SystemComment on above:Performed By: #### UAMIC #### [facility] [address] [place] [address] [place] [address] Engagement Executive: Christian Hanley MDUrinalysis with Microscopicon 15-37-6232Ftyxzald LM Ql (Urine sed)TRACEAbnormalNoneBon Secours Mercy HealthBilirubin Ql (U) NegativeNEGATIVEBon Secours Mercy HealthCasts LM.LPF (Urine sed) [#/Area]0 TO 2 HYALINE/LPFBon Secours Mercy HealthClarity (U)ClearClearBon Secours Mercy Health Color (U)YellowYellowBon Secours Mercy HealthEpithelial cells LM.HPF (Urine sed) [#/Area]2 TO 5[facility] HealthGlucose Test strip (U) [Mass/Vol]Negative NEGATIVE mg/dLBon Secours Mercy HealthHemoglobin Auto test strip Ql (U)Negative NEGATIVEBon Secours Mercy HealthInterpretation and review of laboratory results AbnormalBon Secours Mercy HealthKetones (U) [Mass/Vol]2+AbnormalNEGATIVE mg/dL [facility] HealthLeukocyte esterase Test strip Ql (U)NegativeNEGATIVEBon Secours Mercy HealthMucus Ql (Urine sed)TRACEAbnormalNoneBon Secours Mercy HealthNitrite Ql (U)NegativeNEGATIVEBon Secours Mercy HealthpH (U)8.0 [pH]5.0 - 9.0[facility] HealthProtein (U) [Mass/Vol]1+AbnormalNEGATIVE mg/dLBon Secours Mercy HealthRBC LM.HPF (Urine sed) [#/Area]0 TO 2Bon [facility] HealthSpecific gravity (U) [Rel density]1.0201.010 - 1.020Bon [facility] Mer[facility] HealthUrobilinogen Qn (U)Normal0.0 - 1.0 EU/dLBon Secours Mercy HealthWBC LM.HPF (Urine sed) [#/Area]0 TO 2[facility] HealthBon Secours Mercy HealthUrine Drug Screenon 13-28-9432Idbypzjopkvv Ql (U)NegativeNEGATIVEBon Secours Mercy HealthComment on above:Cutoff: 1000 ng/mLBarbiturates Screen Ql (U)Negative NEGATIVEBon Secours Mercy HealthComment on above:Cutoff: 200 ng/ml Benzodiazepines Ql (U)NegativeNEGATIVEBon Secours Mercy HealthComment on above: Cutoff: 200 ng/mlCannabinoids Screen Ql (U)PositiveAbnormalNEGATIVEBon Secours Mercy HealthComment on above:Cutoff: 50 ng/mlCocaine Ql (U)NegativeNEGATIVEBon Secours Mercy HealthComment on above:Cutoff: 300 ng/mlfentaNYL Ql (U)Negative NEGATIVEBon Secours Mercy HealthComment on above:Cutoff: 5 ng/mlInterpretation and review of laboratory resultsAbnormalBon Secours Mercy HealthMethadone Ql (U) NegativeNEGATIVEBon Secours Mercy HealthComment on above:Cutoff: 300 ng/ml Opiates Screen Ql (U)NegativeNEGATIVEBon Secours Mercy HealthComment on above: Cutoff: 300 ng/ml Note: The Opiate screen is not intended to detect Oxycodone. oxyCODONE Ql (U)NegativeNEGATIVEBon Secours Mercy HealthComment on above:Cutoff: 100 ng/mlPhencyclidine Ql (U)NegativeNEGATIVEBon Secours Mercy HealthComment on above:Cutoff: 25 ng/mlTest InformationThis method is a screening test to detect only these drug classes as part of a medical workup. Confirmatory testing by another method should be ordered if clinically indicated.Bon Secab[facility]oulaye [facility] Centery HealthBon Secours [facility] Centery HealthBASIC METABOLIC PANELon 13-16-7241Oeqet gap [Moles/Vol]9 mmol/LNormal-ProMed[facility] Elastar Community HospitalComment on above: Performed By: #### SYED RAPHAEL, 1988-02, , 00099-9, 5643-2, 2157-03 #### [facility] ([id number]) [address] [place] [address] 94834Uvowbjb [Mass/Vol]10.0 mg/dLNormal8.5-10.5Pro[facility] Elastar Community HospitalComment on above:Performed By: #### SYED RAPHAEL, 1988-02, , 43063-3, 5643-2, 2157-03 #### [facility] ([id number]) [address] [place] [address] 11904Cjwnjjgd [Moles/Vol]99 mmol/KWtfafg57-263QazSbphcjShelby Memorial HospitalComment on above:Performed By: #### SYED RAPHAEL, 1988-02, , 32104-7, 5643-2, 2157-03 #### [facility] ([id number]) [address] [place] [address] 51848FJ1 [Moles/Vol]29 mmol/KXpekaz35-93PhzJvcxxsAdena Health System Comment on above:Performed By: #### SYED RAPHAEL, 1988-02, , 12739-6, 5643-2, 2157-03 #### [facility] ([id number]) [address] [place] [address] 18896Vjukdpbqfm [Mass/Vol]0.83 mg/dLNormal0.40-1.00Shelby Memorial HospitalComment on above:Result Comment: METHOD TRACEABLE TO IDMS STANDARD Performed By: #### SYED RAPHAEL, 1988-02, , 54967-6, 5642-2, 2157-03 #### [facility] ([id number]) [address] [place] [address] 65771UAXY (CKD-EPI) NON-RACE DEPENDENT>^90Normal>=60Shelby Memorial HospitalComment on above:Result Comment: Reported eGFR is based on the CKD-EPI 2020 equation that does not use a race coefficient.Performed By: #### SYED RAPHAEL, 1988-02, , 72040- 0, 5643-2, 2157-03 #### [facility] ([id number]) [address] [place] [address] 55995Owtljwb [Mass/Vol]77 mg/lXWbnnhe00-55RwlWiyrraShelby Memorial Hospital Comment on above:Performed By: #### SYED RAPHAEL, 1988-02, , 50086-9, 5643-2, 2157-03 #### [facility] ([id number]) [address] [place] [address] 99274Ekbbrhoai [Moles/Vol]4.6 mmol/LNormal3.5-5.0ProMemorial Hermann [facility] Heights HospitalComment on above:Performed By: #### SYED RAPHAEL, 1988-02, , 11072-1, 5643-2, 2157-03 #### [facility] ([id number]) [address] [place] [address] 21467Kcznam [Moles/Vol]137 mmol/YWcthhp834-504ClyEbfbzp [facility]remont HospitalComment on above:Performed By: #### IJEOMA [facility], 1988-02, , 00901-7, 2, 2157-03 #### [facility] ([id number]) [address] [place] [address] 45063Tfgt nitrogen [Mass/Vol]11 mg/dLNormal5-23ProMemorial Hermann [facility] Heights HospitalComment on above:Performed By: #### SYED RAPHAEL, 1988-02, , 12265-7, 5642-2, 2157-03 #### [facility] ([id number]) [address] [place] [address] 90422Fwaau Metabolic Panelon 48-23-6358Jcjrj gap [Moles/Vol]18 mmol/LHigh9 - 16 mmol/LBon Secours Mercy HealthCalcium [Mass/Vol]10.0 mg/dL8.6 - 10.4 mg/dLBon Secours Mercy HealthChloride [Moles/Vol]97 mmol/LLow98 - 107 mmol/LBon Secours Mercy HealthCO2 [Moles/Vol]23 mmol/L20 - 31 mmol/LBon Secours Mercy HealthCreatinine [Mass/Vol]1.2 mg/dLHigh0.50 - 0.90 mg/dLBon Secours Mercy HealthEst, Glom Filt Rate67- PINFBon Secours [facility] Centery HealthComment on above: These results are not intended [...] therapy that affects renal tubular secretion. Glucose [Mass/Vol]141 mg/iTFdml73 - 99 mg/dLBon [facility] Interpretation and review of laboratory resultsAbnormalUva Health University Hospital Potassium [Moles/Vol]3.3 mmol/LLow3.7 - 5.3 mmol/LBon [facility] HospitalSodium [Moles/Vol]138 mmol/L136 - 145 mmol/LBon [facility] HospitalUrea nitrogen [Mass/Vol]16 mg/dL6 - 20 mg/dLBon [facility] HospitalUrea nitrogen/Creatinine [Mass ratio]13 mg/mg9 - 20Bon [facility] Health CenterBasic Metabolic Profon 17-55-4149Jahni gap [Moles/Vol]18 mmol/LHigh9-16Trinity Health SystemComment on above:Performed By: #### APTMUT, AMTHFR #### [facility] [address] [place], [place] [phone] Engagement Executive: Melchor Rubin MD #### LUPPRO #### [address] [address] Engagement Executive: Temo Tipton MD [address] [place] [address] Engagement Executive: Christian Hanley MDBUN/CRE Nfcvg96Xmgieh6-97Teiud[address] Comment on above:Performed By: #### APTMUT, AMTHFR #### [facility] [address] [place] [address] Engagement Executive: Melchor Rubin MD #### LUPPRO #### [facility] [place], [place] [phone] Engagement Executive: Temo Tipton MD [address] [place], [place] 1918183 Engagement Executive: JESSICA Singhalcium [Mass/Vol]10.0 mg/dLNormal8.6-10.4Trinity Health SystemComment on above:Performed By: #### APTMUT, AMTHFR #### [facility] [address] [place] [address] Engagement Executive: Melchor Rubin MD #### LUPPRO #### [facility] [address] [place] [address] Engagement Executive: Temo Tipton MD [address] [place], [place] [phone] Engagement Executive: JESSICA Singhhloride [Moles/Vol]97 mmol/GFek89-978MncqkTrinity Health SystemComment on above:Performed By: #### RAYMONDMUT, AMTHFR #### [facility] [address] [place] [address] Engagement Executive: Melchor Rubin MD #### LUPPRO #### [address] [address] Engagement Executive: Temo Tipton MD [address] [place], [place] [phone] Engagement Executive: JESSICA SinghO2 [Moles/Vol]23 mmol/NOkcblm31-38XdvzwTrinity Health SystemComment on above:Performed By: #### APTMUT, AMTHFR #### [facility] [address] [place] [address] Engagement Executive: Melchor Rubin MD #### LUPPRO #### [address] [address] Engagement Executive: Temo Tipton MD [address] [place], [place] [phone] Engagement Executive: JESSICA Singhreatinine [Mass/Vol]1.2 mg/dLHigh0.50-0.90Tr[facility] Health SystemComment on above:Performed By: #### APTMUT, AMTHFR #### [facility] [address] [place] [address] Engagement Executive: Melchor Rubin MD #### LUPPRO #### [place] [address] [place] [address] Engagement Executive: Temo Tipton MD [address] [place], [place] [phone] Engagement Executive: Christian Hanley MDGFR/1.73 sq M.predicted among non-blacks MDRD (S/P/Bld) [Vol rate/Area]67 mL/min/{1.73_m2}Normal>60[facility] Comment on above:Result Comment: These results are not intended for [...] or following therapy that affects renal tubular secretion.Performed By: #### APTMUT, AMTHFR #### [facility] [address] [place] [address] Engagement Executive: Melchor Rubin MD #### LUPPRO #### [address] [place] [address] Engagement Executive: Temo Tipton MD [address] [place], [place] [phone] Engagement Executive: Christian Hanley MDGlucose [Mass/Vol]141 mg/hBRsnw51-78PvfntAkron Children's HospitalComment on above:Performed By: #### APTMUT, AMTHFR #### [facility] [address] [place] [address] Engagement Executive: Melchor Rubin MD #### LUPPRO #### [facility] [address] [place] [address] Engagement Executive: Temo Tipton MD [address] [place], [place] [phone] Engagement Executive: AWILDA Singhotassium [Moles/Vol]3.3 mmol/LLow3.7-5.3MAkron Children's HospitalComment on above:Performed By: #### APTMUT, AMTHFR #### [facility] [address] [place] [address] Engagement Executive: Melchor Rubin MD #### LUPPRO #### [address] [address] Engagement Executive: Temo Tipton MD [address] [place] [phone] Engagement Executive: FREYA Singhodium [Moles/Vol]138 mmol/UCbzfms513-981Mlueh Tiffin HospitalComment on above:Performed By: #### APTMUT, AMTHFR #### [facility] [address] [place], [place] [phone] Engagement Executive: Melchor Rubin MD #### LUPPRO #### [address] [address] Engagement Executive: Temo Tipton MD [address] [place], [place] [phone] Engagement Executive: Christian Hanley MDUrea nitrogen [Mass/Vol]16 mg/dLNormal6-20Trinity Health SystemComment on above:Performed By: #### APTMUT, AMTHFR #### [facility] [address] [place] [address] Engagement Executive: Melchor Rubin MD #### LUPPRO #### [address] [address] Engagement Executive: Temo Tipton MD [address] [place] [address] Engagement Executive: Christian Hanley [facility] with Auto Differentialon 10-16-9791Cvjifdtap (Bld) [#/Vol]0.04 10*3/uLBon [facility] HospitalBasophils/100 WBC (Bld)0 %0 - 2 %[facility] HospitalEosinophils (Bld) [#/Vol][facility] Eosinophils/100 WBC (Bld)0 %Low1 - 4 %[facility] University HospitalErythrocyte distribution width (RBC) [Ratio]13.9 %11.8 - 14.4 %[facility] Hematocrit (Bld) [Volume fraction]38.7 %36.3 - 47.1 %[facility] Hemoglobin (Bld) [Mass/Vol]12.9 g/dL11.9 - 15.1 g/dLBon [facility] Immature granulocytes (Bld) [#/Vol]0.07 10*3/uLBon [facility] HospitalImmature granulocytes/100 WBC (Bld)1 %Lete5EfoUva Health University HospitalInterpretation and review of laboratory resultsAbnormalBon [facility] HospitalLymphocytes/100 WBC (Bld)10 %Low24 - 43 %[facility] University HospitalLymphocytes/100 WBC (Bld)1.52 %[facility] CenterH (RBC) [Entitic mass]29.5 pg25.2 - 33.5 pgBon [facility] EastHC (RBC) [Mass/Vol]33.3 g/dL28.4 - 34.8 g/dLBon [facility] EastV (RBC) [Entitic vol]88.6 fL82.6 - 102.9 fLUva Health University Hospital Monocytes/100 WBC (Bld)7 %3 - 12 %[facility] HospitalMonocytes/100 WBC (Bld)1.01 %[facility] HospitalNeutrophils/100 WBC (Bld)82 %High36 - 65 %[facility] HospitalNucleated RBC/100 WBC (Bld) [Ratio]0.0 %0.0 per 100 WBCBon [facility] HospitalPlatelet mean volume (Bld) [Entitic vol]9.1 fL8.1 - 13.5 fL Bon [facility] HospitalPlatelets (Bld) [#/Vol]355 10*3/uLBon [facility] HospitalRBC (Bld) [#/Vol]4.37 10*6/uL3.95 - 5.11 m/uLUva Health University Hospital Segmented neutrophils/100 WBC (Bld)12.62 %HighBon [facility] HospitalWBC other (Bld) [#/Vol]15.3HighBon [facility] Health CenterCBC with Diffon 67-86-2189Qfy. Basophil0.04 k/uLNormal0.00-0.20[facility] Comment on above:Performed By: #### APTMUT, AMTHFR #### [facility] [address], [place] [id number] Engagement Executive: Melchor Rubin MD #### LUPPRO #### [address] [phone] Engagement Executive: Temo Tipton MD [facility] [address] [place] [address] [place] [address] Engagement Executive: Juana Singh. Eosinophil<0.05Etdmdu8.00-0.44Trinity Health SystemComment on above:Performed By: #### APTMUT, AMTHFR #### [facility] [address] [place], [place] [phone] Engagement Executive: Melchor Rubin MD #### LUPPRO #### [address] [place], [place] [phone] Engagement Executive: Temo Tipton MD [facility] [address] [place] [address] [place] [address] Engagement Executive: Juana Singh.Imm.Granulocyte0.07 k/uLNormal0.00-0.30Tr[facility] Health SystemComment on above:Performed By: #### APTMUT, AMTHFR #### [facility] [address] [place] [address] Engagement Executive: Melchor Rubin MD #### LUPPRO #### [address] [address] Engagement Executive: Temo Tipton MD [address] [place], [place] [phone] Engagement Executive: Juana Singh.Neutrophil (Seg)12.62 k/uLHigh1.50-8.10Tr[facility] Health SystemComment on above:Performed By: #### APTMUT, AMTHFR #### [facility] [address] [place] [address] Engagement Executive: Melchor Rubin MD #### LUPPRO #### [address] [address] Engagement Executive: Temo Tipton MD [address] [place], [place] [phone] Engagement Executive: Christian Hanley MDBasophils/100 WBC (Bld)0 %Normal0-2MAkron Children's HospitalComment on above:Performed By: #### APTMUT, AMTHFR #### [facility] [address] [place] [address] Engagement Executive: Melchor Rubin MD #### LUPPRO #### [address] [address] Engagement Executive: Temo Tipton MD [address] [place], [place] [phone] Engagement Executive: Christian Hanley MDEosinophils/100 WBC (Bld)0 %Low1-4Tr[facility] Health SystemComment on above:Performed By: #### APTMUT, AMTHFR #### [facility] [address] [place] [address] Engagement Executive: Melchor Rubin MD #### LUPPRO #### [facility] [address] [place] [address] Engagement Executive: Temo Tipton MD [address] [place] [address] Engagement Executive: Christian Hanley MDErythrocyte distribution width (RBC) [Ratio]13.9 % Mergdo31.8-14.4MerAdena Regional Medical Center HospitalComment on above:Performed By: #### APTMUT, AMTHFR #### [facility] [address] [place] [address] Engagement Executive: Melchor Rubin MD #### LUPPRO #### [address] [address] Engagement Executive: Temo Tipton MD [address] [place] [phone] Engagement Executive: Christian Hanley MDHematocrit (Bld) [Volume fraction]38.7 %Normal 36.3-47.1Mer[facility] Richmond HospitalComment on above:Performed By: #### APTMUT, AMTHFR #### [facility] [address] [place] [address] Engagement Executive: Melchor Rubin MD #### LUPPRO #### [address] [address] Engagement Executive: Temo Tipton MD [address] [place] [phone] Engagement Executive: Christian Hanley MDHemoglobin (Bld) [Mass/Vol]12.9 g/dLNormal 11.9-15.1[facility] Medical CenterComment on above:Performed By: #### APTMUT, AMTHFR #### [facility] [address] [place] [address] Engagement Executive: Melchor Rubin MD #### LUPPRO #### [facility] [address] [place] [address] Engagement Executive: Temo Tipton MD [facility] [address] [place] [address] Dr. [place], [place] 2008683 Engagement Executive: Christian Hanley MDImmature granulocytes/100 WBC (Bld)1 %Gjcn2Mmlqv Richmond HospitalComment on above:Performed By: #### APTMUT, AMTHFR #### [facility] [address] [place] [address] Engagement Executive: Melchor Rubin MD #### LUPPRO #### [address] [address] Engagement Executive: Temo Tipton MD [address] [place], [place] [phone] Engagement Executive: Christian Hanley MDLymphocytes (Bld) [#/Vol]1.52 10*3/uLNormal 1.10-3.70[facility] Hospitalcy [facility] Administration Medical CenterComment on above:Performed By: #### APTMUT, AMTHFR #### [facility] [address] [place] [address] Engagement Executive: Melchor Rubin MD #### LUPPRO #### [facility] [address] [place] [address] Engagement Executive: Temo Tipton MD [address] [place], [place] [phone] Engagement Executive: Christian Hanley MDLymphocytes/100 WBC (Bld)10 %Uar71-40Hwoll [facility] Administration Medical CenterComment on above:Performed By: #### APTMUT, AMTHFR #### [facility] [address] [place] [address] Engagement Executive: Melchor Rubin MD #### LUPPRO #### [facility] [address] [place] [address] Engagement Executive: Temo Tipton MD [address] [place], [place] [phone] Engagement Executive: KARLY Singh (RBC) [Entitic mass]29.5 hyBqgqvr51.2-33.5 [facility] Health SystemComment on above:Performed By: #### APTMUT, AMTHFR #### [facility] [address] [place] [address] Engagement Executive: Melchor Rubin MD #### LUPPRO #### [facility] [address] [place] [address] Engagement Executive: Temo Tipton MD [address] [place], [place] [phone] Engagement Executive: KARLY SinghC (RBC) [Mass/Vol]33.3 g/jXUhlcbd27.4-34.8Tr[facility] Health SystemComment on above:Performed By: #### APTMUT, AMTHFR #### [facility] [address] [place] [address] Engagement Executive: Melchor Rubin MD #### LUPPRO #### [facility] [address] [place] [address] Engagement Executive: Temo Tipton MD [address] [place], [place] [phone] Engagement Executive: CATALINO Singh (RBC) [Entitic vol]88.6 hZWbyhde76.6-102.9 [facility] Health SystemComment on above:Performed By: #### APTMUT, AMTHFR #### [facility] [address] [place] [address] Engagement Executive: Melchor Rubin MD #### LUPPRO #### [facility] [address] [place] [address] Engagement Executive: Temo Tipton MD [address] [place], [place] [phone] Engagement Executive: Christian Hanley MDMonocytes (Bld) [#/Vol]1.01 10*3/uLNormal0.10-1.20 [facility] SystemComment on above:Performed By: #### APTMUT, AMTHFR #### [facility] [address] [place] [address] Engagement Executive: Melchor Rubin MD #### LUPPRO #### [facility] [address] [place] [address] Engagement Executive: Temo Tipton MD [facility] [address] [place] [address] [place] [address] Engagement Executive: Christian Hanley MDMonocytes/100 WBC (Bld)7 %Normal3-12[facility] Health SystemComment on above:Performed By: #### APTMUT, AMTHFR #### [facility] [address] [place] [address] Engagement Executive: Melchor Rubin MD #### LUPPRO #### [address] [address] Engagement Executive: Temo Tipton MD [facility] [address] [place] [address] [place] [address] Engagement Executive: Christian Hanley MDNeutrophil (Seg)82 %Fvot28-99YqodjTrinity Health System Comment on above:Performed By: #### APTMUT, AMTHFR #### [facility] [address] [place] [address] Engagement Executive: Melchor Rubin MD #### LUPPRO #### [facility] [address] [place] [address] Engagement Executive: Temo Tipton MD [facility] [address] [place] [address] [place] [address] Engagement Executive: Christian Hanley MDNRBC Automated0.0 per 100 WBCNormal0.0Tr[facility] Health SystemComment on above:Performed By: #### APTMUT, AMTHFR #### [facility] [address] [place] [address] Engagement Executive: Melchor Rubin MD #### LUPPRO #### [facility] [address] [place] [address] Engagement Executive: Temo Tipton MD [address] [place] [address] Engagement Executive: Benton Singh mean volume (Bld) [Entitic vol]9.1 fL Normal8.1-13.5Tr[facility] Health SystemComment on above:Performed By: #### APTMUT, AMTHFR #### [facility] [address] [place] [address] Engagement Executive: Melchor Rubin MD #### LUPPRO #### [facility] [address] [place] [address] Engagement Executive: Temo Tipton MD [address] [place] [address] Engagement Executive: Elvis Singh (Bld) [#/Vol]355 10*3/jVUxewzl078-832 [facility] SystemComment on above:Performed By: #### APTMUT, AMTHFR #### [facility] [address] [place] [address] Engagement Executive: Melchor Rubin MD #### LUPPRO #### [facility] [address] [place] [address] Engagement Executive: Temo Tipton MD [address] [place] [address] Engagement Executive: TANIA Singh (Bld) [#/Vol]4.37 10*6/uLNormal3.95-5.11Tr[facility] Health SystemComment on above:Performed By: #### APTMUT, AMTHFR #### [facility] [address] [place] [address] Engagement Executive: Melchor Rubin MD #### LUPPRO #### [address] [address] Engagement Executive: Temo Tipton MD [address] [place] [phone] Engagement Executive: Christian Hanley MDWEILL CORNELL MEDICAL [facility] (d) [#/Vol]15.3 10*3/uLHigh3.5-11.3[facility] Administration Medical CenterComment on above:Performed By: #### APTMUT, AMTHFR #### [facility] [address] [place] [address] Engagement Executive: Melchor Rubin MD #### LUPPRO #### [address] [address] Engagement Executive: Temo Tipton MD [address] [place] [phone] Engagement Executive: Alona Singh Scr, Abuse, Uron 81-48-5057Lubxztulohc(s),Ur NegativeNormalNEGMercy Richmond HospitalComment on above:Result Comment: Cutoff: 1000 ng/mLPerformed By: #### APTMUT, AMTHFR #### [facility] [address] [place] [address] Engagement Executive: Melchor Rubin MD #### LUPPRO #### [address] [address] Engagement Executive: Temo Tipton MD [address] [place] [phone] Engagement Executive: Christian Hanley MDBarbiturate(s),UrNegativeNormalNEGMercy Richmond HospitalComment on above:Result Comment: Cutoff: 200 ng/mlPerformed By: #### APTMUT, AMTHFR #### [facility] [address] [place] [address] Engagement Executive: Melchor Rubin MD #### LUPPRO #### [address] [address] Engagement Executive: Temo Tipton MD [address] [place], [place] [phone] Engagement Executive: Christian Hanley MDBenzodiazepine(s)NegativeNormalNEGOhiohealth Dublin Methodist Hospital HospitalComment on above:Result Comment: Cutoff: 200 ng/mlPerformed By: #### APTMUT, AMTHFR #### [facility] [address] [place] [address] Engagement Executive: Melchor Rubin MD #### LUPPRO #### [address] [address] Engagement Executive: Temo Tipton MD [address] [place], [place] [phone] Engagement Executive: JESSICA Singhannabinoid(s),UrPositiveAbnormalNEGOhiohealth Dublin Methodist Hospital HospitalComment on above:Result Comment: Cutoff: 50 ng/mlPerformed By: #### APTMUT, AMTHFR #### [facility] [address] [place] [address] Engagement Executive: Melchor Rubin MD #### LUPPRO #### [address] [address] Engagement Executive: Temo Tipton MD [address] [place] [address] Engagement Executive: JESSICA Singhocaine MetaboliteNegativeNormalNEGOhiohealth Dublin Methodist Hospital HospitalComment on above:Result Comment: Cutoff: 300 ng/mlPerformed By: #### APTMUT, AMTHFR #### [facility] [address] [place] [address] Engagement Executive: Melchor Rubin MD #### LUPPRO #### [facility] [address] [place] [address] Engagement Executive: Temo Tipton MD [address] [place], [place] [phone] Engagement Executive: Christian Hanley MDFentanyl, UrineNegativeNormalNEGMercy Richmond HospitalComment on above:Result Comment: Cutoff: 5 ng/mlPerformed By: #### APTMUT, AMTHFR #### [facility] [address] [place] [address] Engagement Executive: Melchor Rubin MD #### LUPPRO #### [address] [address] Engagement Executive: Temo Tipton MD [address] [place] [phone] Engagement Executive: Christian Hanley MDInterpretive InfoThis method is a screening test to detect only these drug classes as part of aNormalMercy Veterans Administration Medical CenterComment on above:Result Comment: medical workup. Confirmatory testing by another method should be ordered if clinically indicated.Performed By: #### APTMUT, AMTHFR #### [facility] [address] [place] [address] Engagement Executive: Melchor Rubin MD #### LUPPRO #### [address] [address] Engagement Executive: Temo Tipton MD [facility] [address] [place] [address] Dr. [place], [place] [phone] Engagement Executive: JOSÉ LUIS Singhethadone Ql (U)NegativeNormalNEGMercy Veterans Administration Medical CenterComment on above:Result Comment: Cutoff: 300 ng/mlPerformed By: #### APTMUT, AMTHFR #### [facility] [address] [place] [address] Engagement Executive: Melchor Rubin MD #### LUPPRO #### [address] [address] Engagement Executive: Temo Tipton MD [address] [place] [address] Engagement Executive: Christian Hanley MDOpiate(s), UrNegativeNormalNEGMerAdena Regional Medical Center HospitalComment on above:Result Comment: Cutoff: 300 ng/ml Note: The Opiate screen is not intended to detect Oxycodone.Performed By: #### APTMUT, AMTHFR #### [facility] [address] [place] [address] Engagement Executive: Melchor Rubin MD #### LUPPRO #### [address] [address] Engagement Executive: Temo Tipton MD [address] [place] [address] Engagement Executive: Christian Hanley MDOxycodone, UrineNegativeNormalNEGMercy Richmond HospitalComment on above:Result Comment: Cutoff: 100 ng/mlPerformed By: #### APTMUT, AMTHFR #### [facility] [address] [place] [address] Engagement Executive: Melchor Rubin MD #### LUPPRO #### [address] [address] Engagement Executive: Temo Tipton MD [address] [place] [address] Engagement Executive: AWILDA Singhhencyclidine, UrNegativeNormalNEGMercy Richmond HospitalCommclaren oakland on above:Result Comment: Cutoff: 25 ng/mlPerformed By: #### APTMUT, AMTHFR #### [facility] [address] [place] [address] Engagement Executive: Melchor Rubin MD #### LUPPRO #### [facility] [address] [place] [address] Engagement Executive: Temo Tipton MD [facility] [address] [place] [address] Dr. [place], [place] [phone] Engagement Executive: Christian Hanley MDUrinalysis w/ Microon [id number]+Abnormal NONETrinity Health SystemComment on above:Performed By: #### APTMUT, AMTHFR #### [facility] [address] [place] [address] Engagement Executive: Melchor Rubin MD #### LUPPRO #### [facility] [address] [place] [address] Engagement Executive: Temo Tipton MD [facility] [address] [place] [address] Dr. [place]ardo, [place] [phone] Engagement Executive: Christian Hanley MDBilirubin, SemiQt,UrNegativeNormalNEGTrinity Health SystemComment on above:Performed By: #### APTMUT, AMTHFR #### [facility] [address] [place] [address] Engagement Executive: Melchor Rubin MD #### LUPPRO #### [facility] [address] [place] [address] Engagement Executive: Temo Tipton MD [facility] [address] [place] [address] Dr. Gallardo, [place] [phone] Engagement Executive: Christian Hanley MDBlood, UrineTRACEAbnormalProMedica Flower Hospital Comment on above:Performed By: #### APTMUT, AMTHFR #### [facility] [address] [place] [address] Engagement Executive: Melchor Rubin MD #### LUPPRO #### [facility] [address] [place] [address] Engagement Executive: Temo Tipton MD [facility] [address] [place] [address] Dr. [place], [place] [phone] Engagement Executive: JESSICA Singhlarity (U)ClearNormalCLEARTrinity Health System Comment on above:Performed By: #### APTMUT, AMTHFR #### [facility] [address], [place] [phone] Engagement Executive: Melchor Rubin MD #### LUPPRO #### [address] [address] Engagement Executive: Temo Tipton MD [facility] [address] [place] [address] [place] [address] Engagement Executive: JESSICA Singholor (U)YellowNoParma Community General Hospital Comment on above:Performed By: #### APTMUT, AMTHFR #### [facility] [address], [place] [id number] Engagement Executive: Melchor Rubin MD #### LUPPRO #### [address] [address] Engagement Executive: Temo Tipton MD [facility] [address] [place] [address] [place] [address] Engagement Executive: Christian aHnley MDEpithelial cells LM Ql (Urine sed)10 TO 20Normal 0-25Trinity Health SystemComment on above:Performed By: #### APTMUT, AMTHFR #### [facility] [address], [place] [id number] Engagement Executive: Melchor Rubin MD #### LUPPRO #### [facility] [address] [place] [address] Engagement Executive: Temo Tipton MD [facility] [address] [place] [address] Engagement Executive: Christian Hanley MDGlucose Ql (U)NegativeNormalNEGTrinity Health SystemComment on above:Performed By: #### APTMUT, AMTHFR #### [facility] [address] [place] [address] Engagement Executive: Melchor Rubin MD #### LUPPRO #### [facility] [address] [place] [address] Engagement Executive: Temo Tipton MD [facility] [address] [place] [address] Dr. [place], [place] [phone] Engagement Executive: Christian Hanley MDKetones Ql (U)NegativeNormalNEGMerConnecticut HospiceComment on above:Performed By: #### APTMUT, AMTHFR #### [facility] [address] [place] [address] Engagement Executive: Melchor Rubin MD #### LUPPRO #### [address] [address] Engagement Executive: Temo Tipton MD [facility] [address] [place] [address] [place], [place] [phone] Engagement Executive: Christian Hanley MDLeukocyte esterase Test strip Ql (U)NegativeNormal NEGTrinity Health SystemComment on above:Performed By: #### APTMUT, AMTHFR #### [facility] [address] [place] [address] Engagement Executive: Melchor Rubin MD #### LUPPRO #### [address] [address] Engagement Executive: Temo Tipton MD [facility] [address] [place] [address] [place], [place] [phone] Engagement Executive: JOSÉ LUIS Singhucus Strands1+AbnormalNONEMeMidState Medical Center Comment on above:Performed By: #### APTMUT, AMTHFR #### [facility] [address] [place] [address] Engagement Executive: Melchor Rubin MD #### LUPPRO #### [address] [address] Engagement Executive: Temo Tipton MD [facility] [address] [place] [address] Dr. [place]ardo, [place] [phone] Engagement Executive: Christian Hanley MDNitrite,UrNegativeNormalNEGTrinity Health System Comment on above:Performed By: #### APTMUT, AMTHFR #### [facility] [address] [place] [address] Engagement Executive: Melchor Rubin MD #### LUPPRO #### [facility] [address] [place] [address] Engagement Executive: Temo Tipton MD [facility] [address] [place] [address] Dr. [place], [place] [phone] Engagement Executive: Christian Hanley [facility],Ur6.8Cvgxuw1.0-9.0Trinity Health SystemComment on above:Performed By: #### APTMUT, AMTHFR #### [facility] [address] [place] [address] Engagement Executive: Melchor Rubin MD #### LUPPRO #### [address] [address] Engagement Executive: Temo Tipton MD [address] [place], [place] [phone] Engagement Executive: Didier Singh Ql (U)2+ mg/dLAbnormalNEGTrinity Health SystemComment on above:Performed By: #### APTMUT, AMTHFR #### [facility] [address] [place] [address] Engagement Executive: Melchor Rubin MD #### LUPPRO #### [facility] [address] [place] [address] Engagement Executive: Temo Tipton MD [facility] [address] [place] [address] Dr. [place], [place] [phone] Engagement Executive: FREYA Singhpec. [place],Ur>1.746Oeie6.010-1.020Trinity Health SystemComment on above:Performed By: #### APTMUT, AMTHFR #### [facility] [address] [place] [address] Engagement Executive: Melchor Rubin MD #### LUPPRO #### [facility] [address] [place] [address] Engagement Executive: Temo Tipton MD [address] [place], [place] [phone] Engagement Executive: Louann Singh RBC's0 TO 0Ycwtzv1-9VwyvvAkron Children's Hospital Comment on above:Performed By: #### APTMUT, AMTHFR #### [facility] [address] [place] [address] Engagement Executive: Melchor Rubin MD #### LUPPRO #### [address] [address] Engagement Executive: Temo Tipton MD [address] [place] [address] Engagement Executive: Louann Singh WBC's0 TO 6Ystgwv7-0AjaqcTrinity Health System Comment on above:Performed By: #### APTMUT, AMTHFR #### [facility] [address] [place] [address] Engagement Executive: Melchor Rubin MD #### LUPPRO #### [address] [address] Engagement Executive: Temo Tipton MD [facility] [address] [place] [address] [place] [address] Engagement Executive: Christian Hanley MDUrobilinogen,UrNormalNormal0.0-1.0Trinity Health SystemComment on above:Performed By: #### APTMUT, AMTHFR #### [facility] [address] [place] [address] Engagement Executive: Melchor Rubin MD #### LUPPRO #### [facility] [address] [place], [place] [phone] Engagement Executive: Temo Tipton MD [facility] [address] [address] Engagement Executive: Christian Hanley MDUrinalysis with Microscopicon [id number] LM Ql (Urine sed)1+AbnormalNoneBon Secours Mercy HealthBilirubin Ql (U)Negative NEGATIVEBon Secours Mercy HealthClarity (U)ClearClearBon Secours [facility] Health Color (U)YellowYellowBon Secours Mercy HealthEpithelial cells LM.HPF (Urine sed) [#/Area]10 TO 20[facility] HealthGlucose Test strip (U) [Mass/Vol] NegativeNEGATIVE mg/dLBon Secours Mercy HealthHemoglobin Auto test strip Ql (U) TRACEAbnormalNEGATIVEBon Secours Mercy HealthInterpretation and review of laboratory resultsAbnormalBon Secours Mercy HealthKetones (U) [Mass/Vol]Negative NEGATIVE mg/dLBon Secours Mercy HealthLeukocyte esterase Test strip Ql (U) NegativeNEGATIVEBon Secours Mercy HealthMucus Ql (Urine sed)1+AbnormalNoneBon Secours Mercy HealthNitrite Ql (U)NegativeNEGATIVEBon Secours Mercy HealthpH (U) 6.0 [pH]5.0 - 9.0[facility] HealthProtein (U) [Mass/Vol]2+Abnormal NEGATIVE mg/dLBon Secours Mercy HealthRBC LM.HPF (Urine sed) [#/Area]0 TO 2[facility] HealthSpecific gravity (U) [Rel density]High1.010 - 1.020Bon [facility] Mercy HealthUrobilinogen Qn (U)Normal0.0 - 1.0 EU/dLBon Secours Mercy HealthWBC LM.HPF (Urine sed) [#/Area]0 TO 2[facility] HealthBon Secours Mercy HealthUrine Drug Screenon [id number] Ql (U)NegativeNEGATIVEBon Secours Mercy HealthComment on above:Cutoff: 1000 ng/mLBarbiturates Screen Ql (U)NegativeNEGATIVEBon Secours Mercy HealthComment on above:Cutoff: 200 ng/ml Benzodiazepines Ql (U)NegativeNEGATIVEBon Secours Mercy HealthComment on above: Cutoff: 200 ng/mlCannabinoids Screen Ql (U)PositiveAbnormalNEGATIVEBon Secours Mercy HealthComment on above:Cutoff: 50 ng/mlCocaine Ql (U)NegativeNEGATIVEBon Secours Mercy HealthComment on above:Cutoff: 300 ng/mlfentaNYL Ql (U)Negative NEGATIVEBon Secours Mercy HealthComment on above:Cutoff: 5 ng/mlInterpretation and review of laboratory resultsAbnormalBon Secours Mercy HealthMethadone Ql (U) NegativeNEGATIVEBon Secours Mercy HealthComment on above:Cutoff: 300 ng/ml Opiates Screen Ql (U)NegativeNEGATIVEBon Secours Mercy HealthComment on above: Cutoff: 300 ng/ml Note: The Opiate screen is not intended to detect Oxycodone. oxyCODONE Ql (U)NegativeNEGATIVEBon Secours Mercy HealthComment on above:Cutoff: 100 ng/mlPhencyclidine Ql (U)NegativeNEGATIVEBon Secours Mercy HealthComment on above:Cutoff: 25 ng/mlTest InformationThis method is a screening test to detect only these drug classes as part of a medical workup. Confirmatory testing by another method should be ordered if clinically indicated.[facility] Centery HealthBon SecVirginia Mason Health Systemy Mercy Memorial HospitalBasic Metab w/rfx MGon [id number] gap [Moles/Vol]12 mmol/LNormal9-16Trinity Health SystemComment on above:Performed By: #### APTMUT, AMTHFR #### [facility] [address] [place] [address] Engagement Executive: Melchor Rubin MD #### LUPPRO #### [facility] [address] [place] [address] Engagement Executive: Temo Tipton MD [facility] [address] [place] [address] Engagement Executive: Christian Hanley MDBUN/CRE Fmguz30Ccaupu1-31[facility] Comment on above:Performed By: #### APTMUT, AMTHFR #### [facility] [address] [place] [address] Engagement Executive: Melchor Rubin MD #### LUPPRO #### [address] [address] Engagement Executive: Temo Tipton MD [address] [place], [place] [phone] Engagement Executive: JESSICA Singhalcium [Mass/Vol]8.4 mg/dLLow8.6-10.4Trinity Health SystemComment on above:Performed By: #### APTMUT, AMTHFR #### [facility] [address] [place] [address] Engagement Executive: Melchor Rubin MD #### LUPPRO #### [address] [address] Engagement Executive: Temo Tipton MD [address] [place] [address] Engagement Executive: JESSICA Singhhloride [Moles/Vol]96 mmol/BXnb80-798XmmhyTrinity Health SystemComment on above:Performed By: #### APTMUT, AMTHFR #### [facility] [address] [place] [address] Engagement Executive: Melchor Rubin MD #### LUPPRO #### [address] [address] Engagement Executive: Temo Tipton MD [address] [place] [address] Engagement Executive: JESSICA SinghO2 [Moles/Vol]30 mmol/MKscfye15-43NnmezTrinity Health SystemComment on above:Performed By: #### APTMUT, AMTHFR #### [facility] [address] [place] [address] Engagement Executive: Melchor Rubin MD #### LUPPRO #### [facility] [address] [place] [address] Engagement Executive: Temo Tipton MD [address] [place], [place] [phone] Engagement Executive: JESSICA Singhreatinine [Mass/Vol]1.0 mg/dLHigh0.50-0.90Trinity Health SystemComment on above:Performed By: #### APTMUT, AMTHFR #### [facility] [address] [place] [address] Engagement Executive: Melchor Rubin MD #### LUPPRO #### [address] [address] Engagement Executive: Temo Tipton MD [address] [place] [address] Engagement Executive: Christian Hanley MDGFR/1.73 sq M.predicted among non-blacks MDRD (S/P/Bld) [Vol rate/Area]78 mL/min/{1.73_m2}Normal>60[facility] Comment on above:Result Comment: These results are not intended for [...] or following therapy that affects renal tubular secretion.Performed By: #### APTMUT, AMTHFR #### [facility] [address] [place] [address] Engagement Executive: Melchor Rubin MD #### LUPPRO #### [facility] [address] [place] [address] Engagement Executive: Temo Tpiton MD [facility] [place], [place] [phone] Engagement Executive: Christian Hanley MDGlucose [Mass/Vol]100 mg/yCWmzb73-65UkoiwAkron Children's HospitalComment on above:Performed By: #### APTMUT, AMTHFR #### [facility] [address] [place] [address] Engagement Executive: Melchor Rubin MD #### LUPPRO #### [facility] [address] [place] [address] Engagement Executive: Temo Tipton MD [address] [place], [place] [phone] Engagement Executive: AWILDA Singhotassium [Moles/Vol]2.6 mmol/LCritically low 3.7-5.3[facility] HospitalComment on above:Performed By: #### APTMUT, AMTHFR #### [facility] [address] [place] [address] Engagement Executive: Melchor Rubin MD #### LUPPRO #### [facility] [address] [place] [address] Engagement Executive: Temo Tipton MD [address] [place], [place] 6231883 Engagement Executive: FREYA Singhodium [Moles/Vol]138 mmol/QNzealn188-623Npsjx [facility] Administration Medical CenterComment on above:Performed By: #### APTMUT, AMTHFR #### [facility] [address] [place] [address] Engagement Executive: Melchor Rubin MD #### LUPPRO #### [facility] [address] [place] [address] Engagement Executive: Temo Tipton MD [address] [place], [place] [phone] Engagement Executive: Christian Hanley MDUrea nitrogen [Mass/Vol]19 mg/dLNormal6-20Trinity Health SystemComment on above:Performed By: #### APTMUT, AMTHFR #### [facility] [address] [place] [address] Engagement Executive: Melchor Rubin MD #### LUPPRO #### [facility] [address] [place] [address] Engagement Executive: Temo Tipton MD [facility] [address] [place] [address] Engagement Executive: Christian Hanley MDSh[facility] w/ Reflex to MGon 04-26-2024 Anion gap [Moles/Vol]12 mmol/L9 - 16 mmol/LBon [facility] Medical CenterOuterBay TechnologiesCalcium [Mass/Vol]8.4 mg/dLLow8.6 - 10.4 mg/dLBon [facility] Medical CenterOuterBay TechnologiesChloride [Moles/Vol]96 mmol/LLow98 - 107 mmol/LBon [facility] CenterOuterBay TechnologiesCO2 [Moles/Vol]30 mmol/L20 - 31 mmol/LBon [facility] CenterOuterBay TechnologiesCreatinine [Mass/Vol]1.0 mg/dLHigh 0.50 - 0.90 mg/dLBon [facility] Medical CenterOuterBay TechnologiesEst, Glom Filt Rate78- PINFBon St. Joseph'S HospitalInternet Broadcasting [facility] Memorial HospitalComment on above: These results are not intended [...] therapy that affects renal tubular secretion. Glucose [Mass/Vol]100 mg/wHBqqc03 - 99 mg/dLBon [employer] Interpretation and review of laboratory resultsAbnormalBon [facility] CenterOuterBay Technologies Potassium [Moles/Vol]2.6 mmol/LCritically low3.7 - 5.3 mmol/LBon SecOuterBay TechnologiesSodium [Moles/Vol]138 mmol/L136 - 145 mmol/LBon [facility] CenterOuterBay TechnologiesUrea nitrogen [Mass/Vol]19 mg/dL6 - 20 mg/dLBon [facility] HospitalUrea nitrogen/Creatinine [Mass ratio]19 mg/mg9 - 20Bon [facility] HospitalBon [facility] HospitalCBC with Auto Differentialon [id number] (Bld) [#/Vol]0.05 10*3/uLBon [facility] HospitalBasophils/100 WBC (Bld)1 %0 - 2 %[facility] University HospitalEosinophils (Bld) [#/Vol]0.24 10*3/uLBon SecZanesville City HospitalEosinophils/100 WBC (Bld)2 %1 - 4 %[facility] University HospitalErythrocyte distribution width (RBC) [Ratio]13.4 %11.8 - 14.4 %[facility] Hematocrit (Bld) [Volume fraction]33.4 %Low36.3 - 47.1 %[facility] Hemoglobin (Bld) [Mass/Vol]11.6 g/dLLow11.9 - 15.1 g/dLBon [facility] Immature granulocytes (Bld) [#/Vol]0.05 10*3/uLBon [facility] HospitalImmature granulocytes/100 WBC (Bld)1 %Ewfv6LtoUva Health University HospitalInterpretation and review of laboratory resultsAbnormalUva Health University HospitalLymphocytes/100 WBC (Bld)29 %24 - 43 %[facility] HospitalLymphocytes/100 WBC (Bld)2.87 %[facility] Medical CenterH (RBC) [Entitic mass]29.7 pg25.2 - 33.[address] Francis Medical CenterHC (RBC) [Mass/Vol]34.7 g/dL28.4 - 34.8 g/dLBon [facility] Cleveland EastV (RBC) [Entitic vol]85.6 fL82.6 - 102.9 fLUva Health University Hospital Monocytes/100 WBC (Bld)10 %3 - 12 %[facility] HospitalMonocytes/100 WBC (Bld)0.98 %[facility] HospitalNeutrophils/100 WBC (Bld)58 %36 - 65 %[facility] HospitalNucleated RBC/100 WBC (Bld) [Ratio]0 %0.0 per 100 WBCUva Health University HospitalPlatelet mean volume (Bld) [Entitic vol]10.9 fL8.1 - 13.5 fL [facility] HospitalPlatelets (Bld) [#/Vol]238 10*3/uLUva Health University HospitalRBC (Bld) [#/Vol]3.9 10*6/uLLow3.95 - 5.11 m/uLUva Health University Hospital Segmented neutrophils/100 WBC (Bld)5.69 %[facility] HospitalWBC other (Bld) [#/Vol]9.9Bon [facility] Health CenterCBC with Diffon [id number]. Basophil0.05 k/uLNormal0.00-0.20Trinity Health SystemComment on above:Performed By: #### APTMUT, AMTHFR #### [facility] [address], [place] [id number] Engagement Executive: Melchor Rubin MD #### LUPPRO #### [facility] [address] [place] [phone] Engagement Executive: Temo Tipton MD [facility] [address] [place] [address] Engagement Executive: Juana Singh.Imm.Granulocyte0.05 k/uLNormal0.00-0.30Trinity Health SystemComment on above:Performed By: #### APTMUT, AMTHFR #### [facility] [address] [place] [address] Engagement Executive: Melchor Rubin MD #### LUPPRO #### [address] [address] Engagement Executive: Temo Tipton MD [facility] [address] [place] [address] [place] [address] Engagement Executive: Juana Singh.Neutrophil (Seg)5.69 k/uLNormal1.50-8.10Tr[facility] Health SystemComment on above:Performed By: #### APTMUT, AMTHFR #### [facility] [address] [place] [address] Engagement Executive: Melchor Rubin MD #### LUPPRO #### [address] [address] Engagement Executive: Temo Tipton MD [address] [place] [phone] Engagement Executive: Christian Hanley MDBasophils/100 WBC (Bld)1 %Normal0-2MAkron Children's HospitalComment on above:Performed By: #### APTMUT, AMTHFR #### [facility] [address] [place] [address] Engagement Executive: Melchor Rubin MD #### LUPPRO #### [address] [address] Engagement Executive: Temo Tipton MD [address] [place] [address] Engagement Executive: Christian Hanley MDEosinophils (Bld) [#/Vol]0.24 10*3/uLNormal 0.00-0.44Tr[facility] Health SystemComment on above:Performed By: #### RAYMONDMUT, AMTHFR #### [facility] [address] [place] [address] Engagement Executive: Melchor Rubin MD #### LUPPRO #### [address] [address] Engagement Executive: Temo Tipton MD [address] [place] [address] Engagement Executive: PAPO Singhosinophils/100 WBC (Bld)2 %Normal1-4[facility] HospitalComment on above:Performed By: #### APTMUT, AMTHFR #### [facility] [address] [place] [address] Engagement Executive: Melchor Rubin MD #### LUPPRO #### [facility] [address] [place] [address] Engagement Executive: Temo Tipton MD [address] [place], [place] [phone] Engagement Executive: Christian Hanley MDErythrocyte distribution width (RBC) [Ratio]13.4 % Ajgwxo64.8-14.4Tr[facility] Health SystemComment on above:Performed By: #### APTMUT, AMTHFR #### [facility] [address] [place] [address] Engagement Executive: Melchor Rubin MD #### LUPPRO #### [address] [address] Engagement Executive: Temo Tipton MD [address] [place] [address] Engagement Executive: Christian Hanley MDHematocrit (Bld) [Volume fraction]33.4 %Low 36.3-47.1MOhio State Health System HospitalComment on above:Performed By: #### APTMUT, AMTHFR #### [facility] [address] [place] [address] Engagement Executive: Melchor Rubin MD #### LUPPRO #### [facility] [address] [place] [address] Engagement Executive: Temo Tipton MD [address] [place] [address] Engagement Executive: Christian Hanley MDHemoglobin (Bld) [Mass/Vol]11.6 g/dLLow11.9-15.1 [facility] Health SystemComment on above:Performed By: #### APTMUT, AMTHFR #### [facility] [address] [place] [address] Engagement Executive: Melchor Rubin MD #### LUPPRO #### [address] [address] Engagement Executive: Temo Tipton MD [address] [place], [place] 9608583 Engagement Executive: Christian Hanley MDImmature granulocytes/100 WBC (Bld)1 %Mtef4RdfuqOhiohealth Dublin Methodist Hospital HospitalComment on above:Performed By: #### APTMUT, AMTHFR #### [facility] [address] [place] [address] Engagement Executive: Melchor Rubin MD #### LUPPRO #### [address] [address] Engagement Executive: Temo Tipton MD [address] [place] [phone] Engagement Executive: Christian Hanley MDLymphocytes (Bld) [#/Vol]2.87 10*3/uLNormal 1.10-3.70Tr[facility] Health SystemComment on above:Performed By: #### APTMUT, AMTHFR #### [facility] [address] [place] [address] Engagement Executive: Melchor Rubin MD #### LUPPRO #### [address] [address] Engagement Executive: Temo Tipton MD [address] [place], [place] [phone] Engagement Executive: Christian Hanley MDLymphocytes/100 WBC (Bld)29 %Zwbhic66-63UajxiTrinity Health SystemComment on above:Performed By: #### APTMUT, AMTHFR #### [facility] [address] [place] [address] Engagement Executive: Melchor Rubin MD #### LUPPRO #### [address] [address] Engagement Executive: Temo Tipton MD [address] [place] [phone] Engagement Executive: KARLY Singh (RBC) [Entitic mass]29.7 seUbdqso29.2-33.5 [facility] Health SystemComment on above:Performed By: #### APTMUT, AMTHFR #### [facility] [address] [place] [address] Engagement Executive: Melchor Rubin MD #### LUPPRO #### [address] [address] Engagement Executive: Temo Tipton MD [address] [place] [phone] Engagement Executive: KARLY SinghC (RBC) [Mass/Vol]34.7 g/iROgpjls51.4-34.8[facility] HospitalComment on above:Performed By: #### APTMUT, AMTHFR #### [facility] [address] [place] [address] Engagement Executive: Melchor Rubin MD #### LUPPRO #### [address] [address] Engagement Executive: Temo Tipton MD [address] [place] [phone] Engagement Executive: JOSÉ LUIS SinghCV (RBC) [Entitic vol]85.6 dFVnufyw81.6-102.9 [facility] HospitalComment on above:Performed By: #### APTMUT, AMTHFR #### [facility] [address] [place] [address] Engagement Executive: Melchor Rubin MD #### LUPPRO #### [address] [address] Engagement Executive: Temo Tipton MD [address] [place] [address] Engagement Executive: Christian Hanley MDMonocytes (Bld) [#/Vol]0.98 10*3/uLNormal0.10-1.20 [facility] SystemComment on above:Performed By: #### APTMUT, AMTHFR #### [facility] [address] [place] [address] Engagement Executive: Melchor Rubin MD #### LUPPRO #### [address] [address] Engagement Executive: Temo Tipton MD [address] [place] [address] Engagement Executive: JOSÉ LUIS Singhonocytes/100 WBC (Bld)10 %Normal3-12Tr[facility] Health SystemComment on above:Performed By: #### APTMUT, AMTHFR #### [facility] [address] [place] [address] Engagement Executive: Melchor Rubin MD #### LUPPRO #### [facility] [address] [place] [address] Engagement Executive: Temo Tipton MD [address] [place] [address] Engagement Executive: Christian Hanley MDNeutrophil (Seg)58 %Coidja15-21KmunpTrinity Health SystemComment on above:Performed By: #### APTMUT, AMTHFR #### [facility] [address] [place] [address] Engagement Executive: Melchor Rubin MD #### LUPPRO #### [facility] [address] [place] [address] Engagement Executive: Temo Tipton MD [address] [place] [address] Engagement Executive: Christian Hanley MDNRBC Automated0.0 per 100 WBCNormal0.0Tr[facility] Health SystemCommclaren oakland on above:Performed By: #### APTMUT, AMTHFR #### [facility] [address] [place] [address] Engagement Executive: Melchor Rubin MD #### LUPPRO #### [facility] [address] [place] [address] Engagement Executive: Temo Tipton MD [address] [place] [address] Engagement Executive: Benton Singh mean volume (Bld) [Entitic vol]10.9 fL Normal8.1-13.5Trinity Health SystemComment on above:Performed By: #### APTMUT, AMTHFR #### [facility] [address] [place] [address] Engagement Executive: Melchor Rubin MD #### LUPPRO #### [facility] [address] [place] [address] Engagement Executive: Temo Tipton MD [address] [place] [address] Engagement Executive: Elvis Singh (Bld) [#/Vol]238 10*3/mBJhfhrv440-683 [facility] SystemCommclaren oakland on above:Performed By: #### APTMUT, AMTHFR #### [facility] [address] [place] [address] Engagement Executive: Melchor Rubin MD #### LUPPRO #### [facility] [address] [place] [address] Engagement Executive: Temo Tipton MD [address] [place] [address] Engagement Executive: TANIA Singh (Bld) [#/Vol]3.90 10*6/uLLow3.95-5.11Trinity Health SystemComment on above:Performed By: #### APTMUT, AMTHFR #### [facility] [address] [place] [address] Engagement Executive: Melchor Rubin MD #### LUPPRO #### [facility] [address] [place], [place] [phone] Engagement Executive: Temo Tipton MD [address] [place] [address] Engagement Executive: Christian Hanley MDWEILL [facility]LL [facility] (d) [#/Vol]9.9 10*3/uLNormal3.5-11.3MAkron Children's HospitalComment on above:Performed By: #### APTMUT, AMTHFR #### [facility] [address] [place] [address] Engagement Executive: Melchor Rubin MD #### LUPPRO #### [facility] [address] [place] [address] Engagement Executive: Temo Tipton MD [address] [place] [address] Engagement Executive: LELE Singh ABDOMEN PELVIS W IV CONTRASTon 98-03-0819YT ABDOMEN PELVIS W IV CONTRASTEXAMINATION: CT OF THE ABDOMEN AND PELVIS WITH [...] Signed by: John Porter DO 04/26/25 Final resultNormalMercy Veterans Administration Medical CenterCT Abdomen and Pelvis W contrast Clyde 56-51-1076Km acute intra-abdominal or pelvic process. [facility] CONSOLIDATEDEXAMINATION: CT OF THE ABDOMEN AND PELVIS WITH [...] No acute osseous or soft tissue abnormality. [facility] John Aguero DO - 04/26/2025 EXAMINATION: CT OF THE [...] No acute intra-abdominal or pelvic process. [facility] Abdomen and Pelvis W contrast IVOrdered By: John Porter on 99-57-6104Yhf [facility] Work Phone: ekg Rhythm Stripon [phone] Health Mercy Gilbert Medical CenterK (Potassium)on 85-85-3385Anrhgxhwi [Moles/Vol]4.3 mmol/LNormal 3.7-5.3[facility] Administration Medical CenterComment on above:Result Comment: Specimen hemolysis has exceeded the interference as defined by Macy. Value may be falsely increased. Suggest recollection if clinically indicated.Performed By: #### APTMUT, AMTHFR #### [facility] [address] [place] [address] Engagement Executive: Melchor Rubin MD #### LUPPRO #### [facility] [address] [place] [address] Engagement Executive: Temo Tipton MD [facility] [address] [place] [address] Engagement Executive: Christian Hanley MDKeppraon 36-74-2156HXPO66 ug/mLNormalTrinity Health SystemComment on above:Result Comment: A reference range for Keppra has [...] toxicity is not known. Performed By: #### KEPPRA #### [facility] [place] [address] Engagement Executive: Temo Tipton MDMagnesiumon 46-87-8554Nnxhoftzd [Mass/Vol]2.6 mg/dL1.6 - 2.6 mg/dLBon [facility] Health CenterMagnesium [Mass/Vol]2.6 mg/dLNormal1.6-2.6Mer[facility] Administration Medical CenterComment on above:Performed By: #### APTMUT, AMTHFR #### [facility] [address] [place] [address] Engagement Executive: Melchor Rubin MD #### LUPPRO #### [facility] [address] [place] [address] Engagement Executive: Temo Tipton MD [facility] [address] [place] [address] Engagement Executive: AWILDA Singhotassiumon 03-47-9084Pdoqutzuc [Moles/Vol]4.3 mmol/L3.7 - 5.3 mmol/LBon [facility] HospitalCommclaren oakland on above:Specimen hemolysis has exceeded the interference as defined by Macy. Value may be falsely increased. Suggest recollection if clinically indicated. [facility] HospitalCBC with Auto Differentialon 10-77-6469Ftxsdhsjw (Bld) [#/Vol]0.08 10*3/uLBon [facility] HospitalBasophils/100 WBC (Bld)1 %0 - 2 %[facility] HospitalEosinophils (Bld) [#/Vol]0.03 10*3/uLBon [facility] HospitalEosinophils/100 WBC (Bld)0 %Low1 - 4 %[facility] HospitalErythrocyte distribution width (RBC) [Ratio]13.1 %11.8 - 14.4 %[facility] Hematocrit (Bld) [Volume fraction]46.2 %36.3 - 47.1 %[facility] Hemoglobin (Bld) [Mass/Vol]16.5 g/pVAjdm60.9 - 15.1 g/dLBon [facility] Immature granulocytes (Bld) [#/Vol]0.1 10*3/uLBon [facility] HospitalImmature granulocytes/100 WBC (Bld)1 %Xqeg6SqrUva Health University HospitalInterpretation and review of laboratory resultsAbnormalUva Health University HospitalLymphocytes/100 WBC (Bld)7 %Low24 - 43 %[facility] HospitalLymphocytes/100 WBC (Bld)1.17 %[facility] CenterH (RBC) [Entitic mass]29.7 pg25.2 - 33.5 pgBon [facility] EastHC (RBC) [Mass/Vol]35.7 g/dEBopj30.4 - 34.8 g/dLBon [facility] EastV (RBC) [Entitic vol]83.1 fL82.6 - 102.9 fLUva Health University Hospital Monocytes/100 WBC (Bld)7 %3 - 12 %[facility] HospitalMonocytes/100 WBC (Bld)1.2 %[facility] HospitalNeutrophils/100 WBC (Bld)84 %High36 - 65 %[facility] HospitalNucleated RBC/100 WBC (Bld) [Ratio]0 %0.0 per 100 WBCBon [facility] HospitalPlatelet mean volume (Bld) [Entitic vol]10.9 fL8.1 - 13.5 fL Bon [facility] HospitalPlatelets (Bld) [#/Vol]411 10*3/uLBon [facility] HospitalRBC (Bld) [#/Vol]5.56 10*6/uLHigh3.95 - 5.11 m/[facility] Segmented neutrophils/100 WBC (Bld)14.74 %HighBon [facility] HospitalWBC other (Bld) [#/Vol]17.3HighBon [facility] CenterCBC with Diffon 61-37-3482Hes. Basophil0.08 k/uLNormal0.00-0.20[facility] Comment on above:Performed By: #### APTMUT, AMTHFR #### [facility] [address], [place] [id number] Engagement Executive: Melchor Rubin MD #### LUPPRO #### [facility] [address] [place], [place] [phone] Engagement Executive: Temo Tipton MD [facility] [address] [place] [address] [place] [address] Engagement Executive: Juana Singh.Imm.Granulocyte0.10 k/uLNormal0.00-0.30Trinity Health SystemComment on above:Performed By: #### APTMUT, AMTHFR #### [facility] [address] [place] [address] Engagement Executive: Melchor Rubin MD #### LUPPRO #### [facility] [address] [place], [place] [phone] Engagement Executive: Temo Tipton MD [facility] [address] [place] [address] [place] [address] Engagement Executive: Juana Singh.Neutrophil (Seg)14.74 k/uLHigh1.50-8.10Trinity Health SystemComment on above:Performed By: #### APTMUT, AMTHFR #### [facility] [address] [place] [address] Engagement Executive: Melchor Rubin MD #### LUPPRO #### [address] [address] Engagement Executive: Temo Tipton MD [address] [place], [place] [phone] Engagement Executive: Christian Hanley MDBasophils/100 WBC (Bld)1 %Normal0-2[facility] HospitalComment on above:Performed By: #### APTMUT, AMTHFR #### [facility] [address] [place] [address] Engagement Executive: Melchor Rubin MD #### LUPPRO #### [address] [address] Engagement Executive: Temo Tipton MD [address] [place] [phone] Engagement Executive: Christian Hanley MDEosinophils (Bld) [#/Vol]0.03 10*3/uLNormal 0.00-0.44[facility] Medical CenterComment on above:Performed By: #### APTMUT, AMTHFR #### [facility] [address] [place] [address] Engagement Executive: Melchor Rubin MD #### LUPPRO #### [address] [address] Engagement Executive: Temo Tipton MD [address] [place] [phone] Engagement Executive: PAPO Singhosinophils/100 WBC (Bld)0 %Low1-4[facility] Hospitalcy [place] HospitalComment on above:Performed By: #### APTMUT, AMTHFR #### [facility] [address] [place] [address] Engagement Executive: Melchor Rubin MD #### LUPPRO #### [address] [address] Engagement Executive: Temo Tipton MD [address] [place], [place] [phone] Engagement Executive: Christian Hanley MDErythrocyte distribution width (RBC) [Ratio]13.1 % Jynbcr42.8-14.4[facility] HospitalComment on above:Performed By: #### APTMUT, AMTHFR #### [facility] [address] [place] [address] Engagement Executive: Melchor Rubin MD #### LUPPRO #### [address] [address] Engagement Executive: Temo Tipton MD [address] [place] [phone] Engagement Executive: Christian Hanley MDHematocrit (Bld) [Volume fraction]46.2 %Normal 36.3-47.1Mmercy health st. anne hospitaly [place] HospitalComment on above:Performed By: #### APTMUT, AMTHFR #### [facility] [address] [place] [address] Engagement Executive: Melchor Rubin MD #### LUPPRO #### [address] [address] Engagement Executive: Temo Tipton MD [address] [place] [phone] Engagement Executive: Christian Hanley MDHemoglobin (Bld) [Mass/Vol]16.5 g/dSQpsk12.9-15.1 Trinity Health SystemComment on above:Performed By: #### APTMUT, AMTHFR #### [facility] [address] [place] [address] Engagement Executive: Melchor Rubin MD #### LUPPRO #### [facility] [address] [place] [address] Engagement Executive: Temo Tipton MD [address] [place] [phone] Engagement Executive: Christian Hanley MDImmature granulocytes/100 WBC (Bld)1 %Iiqx2VhcslTrinity Health SystemComment on above:Performed By: #### APTMUT, AMTHFR #### [facility] [address] [place] [address] Engagement Executive: Melchor Rubin MD #### LUPPRO #### [facility] [address] [place] [address] Engagement Executive: Temo Tipton MD [address] [place] [phone] Engagement Executive: Christian Hanley MDLymphocytes (Bld) [#/Vol]1.17 10*3/uLNormal 1.10-3.70Trinity Health SystemComment on above:Performed By: #### APTMUT, AMTHFR #### [facility] [address] [place] [address] Engagement Executive: Melchor Rubin MD #### LUPPRO #### [facility] [address] [place] [address] Engagement Executive: Temo Tipton MD [address] [place] [phone] Engagement Executive: Christian Hanley MDLymphocytes/100 WBC (Bld)7 %Iox64-44Syufq [facility] Medical CenterComment on above:Performed By: #### APTMUT, AMTHFR #### [facility] [address] [place] [address] Engagement Executive: Melchor Rubin MD #### LUPPRO #### [facility] [address] [place] [address] Engagement Executive: Temo Tipton MD [address] [place], [place] [phone] Engagement Executive: KARLY Singh (RBC) [Entitic mass]29.7 jkJyukpx55.2-33.5 Trinity Health SystemComment on above:Performed By: #### APTMUT, AMTHFR #### [facility] [address] [place] [address] Engagement Executive: Melchor Rubin MD #### LUPPRO #### [address] [address] Engagement Executive: Temo Tipton MD [address] [place] [address] Engagement Executive: KARLY SinghC (RBC) [Mass/Vol]35.7 g/yTEswl32.4-34.8Tr[facility] Health SystemComment on above:Performed By: #### APTMUT, AMTHFR #### [facility] [address] [place] [address] Engagement Executive: Melchor Rubin MD #### LUPPRO #### [address] [address] Engagement Executive: Temo Tipton MD [address] [place], [place] [phone] Engagement Executive: CATALINO Singh (RBC) [Entitic vol]83.1 zDDnamvf47.6-102.9 [facility] Health SystemComment on above:Performed By: #### APTMUT, AMTHFR #### [facility] [address] [place] [address] Engagement Executive: Melchor Rubin MD #### LUPPRO #### [address] [address] Engagement Executive: Temo Tipton MD [address] [place] [address] Engagement Executive: Christian Hanley MDMonocytes (Bld) [#/Vol]1.20 10*3/uLNormal0.10-1.20 [facility] Health SystemComment on above:Performed By: #### APTMUT, AMTHFR #### [facility] [address] [place] [address] Engagement Executive: Melchor Rubin MD #### LUPPRO #### [facility] [address] [place] [address] Engagement Executive: Temo Tipton MD [address] [place] [address] Engagement Executive: Christian Hanley MDMonocytes/100 WBC (Bld)7 %Normal3-12Tr[facility] Health SystemComment on above:Performed By: #### APTMUT, AMTHFR #### [facility] [address] [place] [address] Engagement Executive: Melchor Rubin MD #### LUPPRO #### [address] [address] Engagement Executive: Temo Tipton MD [address] [place] [address] Engagement Executive: Christian Hanley MDNeutrophil (Seg)84 %Ueqi06-87FhlvgTrinity Health System Comment on above:Performed By: #### APTMUT, AMTHFR #### [facility] [address] [place] [address] Engagement Executive: Melchor Rubin MD #### LUPPRO #### [facility] [address] [place] [address] Engagement Executive: Temo Tipton MD [address] [place], [place] [phone] Engagement Executive: Christian Hanley MDNRBC Automated0.0 per 100 WBCNormal0.0Trinity Health SystemComment on above:Performed By: #### APTMUT, AMTHFR #### [facility] [address] [place] [address] Engagement Executive: Melchor Rubin MD #### LUPPRO #### [facility] [address] [place] [address] Engagement Executive: Temo Tipton MD [facility] [address] [place] [address] [place] [address] Engagement Executive: Benton Singh mean volume (Bld) [Entitic vol]10.9 fL Normal8.1-13.5Trinity Health SystemComment on above:Performed By: #### APTMUT, AMTHFR #### [facility] [address] [place] [address] Engagement Executive: Melchor Rubin MD #### LUPPRO #### [facility] [address] [place] [address] Engagement Executive: Temo Tipton MD [address] [place] [address] Engagement Executive: Elvis Singh (Bld) [#/Vol]411 10*3/xUKdbvlz268-467 [facility] Health SystemComment on above:Performed By: #### RAYMONDMUT, AMTHFR #### [facility] [address] [place] [address] Engagement Executive: Melchor Rubin MD #### LUPPRO #### [facility] [address] [place] [address] Engagement Executive: Temo Tipton MD [facility] [address] [place] [address] [place] [address] Engagement Executive: TANIA Singh (Bld) [#/Vol]5.56 10*6/uLHigh3.95-5.11Tr[facility] Health SystemComment on above:Performed By: #### APTMUT, AMTHFR #### [facility] [address] [place] [address] Engagement Executive: Melchor Rubin MD #### LUPPRO #### [facility] [address] [place] [address] Engagement Executive: Temo Tipton MD [facility] [address] [place] [address] [place] [address] Engagement Executive: Christian Hanley MDWEILL [facility]NELL [facility] (d) [#/Vol]17.3 10*3/uLHigh3.5-11.3Mmercy health st. anne hospitaly [facility] CenterComment on above:Performed By: #### RAYMONDMUT, AMTHFR #### [facility] [address] [place] [address] Engagement Executive: Melchor Rubin MD #### LUPPRO #### [facility] [address] [place] [address] Engagement Executive: Temo Tipton MD [facility] [address] [place] [address] [place] [address] Engagement Executive: Christian Hanley [facility] 46-50-3952Aqpgtvm [Mass/Vol]5.4 g/dLHigh3.5 - 5.2 g/dLBon [facility] HospitalAlbumin/Globulin [Mass ratio]1.4 {ratio}1.0 - 2.5Bon [facility] HospitalALP [Catalytic activity/Vol]97 U/L35 - 104 U/LBon [facility] HospitalALT [Catalytic activity/Vol]216 U/LHigh10 - 35 U/LBon [facility] HospitalAnion gap [Moles/Vol]22 mmol/LHigh9 - 16 mmol/LBon [facility] HospitalAST [Catalytic activity/Vol]90 U/LHigh10 - 35 U/LBon [facility] HospitalBilirubin [Mass/Vol]1.3 mg/dLHigh0.00 - 1.20 mg/dLBon [facility] Calcium [Mass/Vol]10.1 mg/dL8.6 - 10.4 mg/dLBon [facility] HealthChloride [Moles/Vol]84 mmol/LLow98 - 107 mmol/LBon [facility] HealthCO2 [Moles/Vol]29 mmol/L20 - 31 mmol/LBon [facility] HealthCreatinine [Mass/Vol]1.9 mg/dLHigh 0.50 - 0.90 mg/dLBon [facility] HealthEst, Glom Filt Rnes39Hux- PINFBon [facility] HospitalComment on above: These results are not intended [...] therapy that affects renal tubular secretion. Glucose [Mass/Vol]110 mg/yBIiro46 - 99 mg/dLBon [facility] HealthPotassium [Moles/Vol]2.5 mmol/LCritically low3.7 - 5.3 mmol/LBon [facility] Protein [Mass/Vol]9.4 g/dLHigh6.6 - 8.7 g/dLBon [facility] HospitalSodium [Moles/Vol]135 mmol/MMtu058 - 145 mmol/LBon [facility] HealthUrea nitrogen [Mass/Vol]32 mg/dLHigh6 - 20 mg/dLBon [facility] HospitalUrea nitrogen/Creatinine [Mass ratio]17 mg/mg9 - 20Bon [facility] HealthCT Abdomen and Pelvis W contrast Clyde 34-67-8833Apnlrfwem Study observation (narrative)Bon [facility] Systemp Metabolic Profon 65-20-6240Eemgilx [Mass/Vol]5.4 g/dL High3.5-5.2[facility] Medical CenterComment on above:Performed By: #### KELLEN SERRANO #### [facility] [address] [place] [address] Engagement Executive: Melchor Rubin MD #### LUPPRO #### [facility] [address] [place] [address] Engagement Executive: Temo Tipton MD [facility] [address] [place] [address] Dr. [place], [place] [phone] Engagement Executive: Christian Hanley MDAlbumin/Glob Ratio1.8Cgiebk2.0-2.5Tr[facility] Health SystemComment on above:Performed By: #### APTMUT, AMTHFR #### [facility] [address] [place] [address] Engagement Executive: Melchor Rubin MD #### LUPPRO #### [address] [address] Engagement Executive: Temo Tipton MD [address] [place], [place] 7492083 Engagement Executive: Edil Singhkaline Phos97 U/FXmutko27-838ZiyugTrinity Health SystemComment on above:Performed By: #### APTMUT, AMTHFR #### [facility] [address] [place] [address] Engagement Executive: Melchor Rubin MD #### LUPPRO #### [address] [address] Engagement Executive: Temo Tipton MD [address] [place], [place] [phone] Engagement Executive: EDWIN Singh [Catalytic activity/Vol]216 U/GIwdj94-31OszwfTrinity Health SystemComment on above:Performed By: #### APTMUT, AMTHFR #### [facility] [address] [place] [address] Engagement Executive: Melchor Rubin MD #### LUPPRO #### [address] [address] Engagement Executive: Temo Tipton MD [facility] [address] [place] [address] Dr. [place], [place] [phone] Engagement Executive: Christian Sturtz, MDAnion gap [Moles/Vol]22 mmol/LHigh9-16Tr[facility] Health SystemComment on above:Performed By: #### APTMUT, AMTHFR #### [facility] [address] [place] [address] Engagement Executive: Melchor Rubin MD #### LUPPRO #### [facility] [address] [place] [address] Engagement Executive: Temo Tipton MD [facility] [address] [place] [address] Dr. [place], [place] 0644483 Engagement Executive: Christian Hanley MDAST [Catalytic activity/Vol]90 U/CEakm08-88UvekvTrinity Health SystemComment on above:Performed By: #### APTMUT, AMTHFR #### [facility] [address] [place] [address] Engagement Executive: Melchor Rubin MD #### LUPPRO #### [address] [address] Engagement Executive: Temo Tipton MD [facility] [address] [place] [address] [place] [address] Engagement Executive: Christian Hanley MDBilirubin [Mass/Vol]1.3 mg/dLHigh0.00-1.20[facility] Health SystemComment on above:Performed By: #### APTMUT, AMTHFR #### [facility] [address] [place] [address] Engagement Executive: Melchor Rubin MD #### LUPPRO #### [address] [address] Engagement Executive: Temo Tipton MD [facility] [address] [place] [address] [place] [address] Engagement Executive: Christian Hanley MDBUN/CRE Bbirr13Fohpgs1-73Aaypc [facility] Comment on above:Performed By: #### APTMUT, AMTHFR #### [facility] [address] [place] [address] Engagement Executive: Melchor Rubin MD #### LUPPRO #### [address] [address] Engagement Executive: Temo Tipton MD [address] [place], [place] 1089683 Engagement Executive: JESSICA Singhalcium [Mass/Vol]10.1 mg/dLNormal8.6-10.4[facility] HospitalComment on above:Performed By: #### APTMUT, AMTHFR #### [facility] [address] [place] [address] Engagement Executive: Melchor Rubin MD #### LUPPRO #### [address] [address] Engagement Executive: Temo Tipton MD [address] [place], [place] [phone] Engagement Executive: JESSICA Singhhloride [Moles/Vol]84 mmol/YLjb66-439Ktvft [facility] HospitalComment on above:Performed By: #### APTMUT, AMTHFR #### [facility] [address] [place] [address] Engagement Executive: Melchor Rubin MD #### LUPPRO #### [address] [address] Engagement Executive: Temo Tipton MD [address] [place], [place] [phone] Engagement Executive: JESSICA SinghO2 [Moles/Vol]29 mmol/TOpemqz14-35Arimo [facility] HospitalComment on above:Performed By: #### APTMUT, AMTHFR #### [facility] [address] [place] [address] Engagement Executive: Melchor Rubin MD #### LUPPRO #### [facility] [address] [place] [address] Engagement Executive: Temo Tipton MD [address] [place] [address] Engagement Executive: JESSICA Singhreatinine [Mass/Vol]1.9 mg/dLHigh0.50-0.90Tr[facility] Health SystemComment on above:Performed By: #### APTMUT, AMTHFR #### [facility] [address] [place] [address] Engagement Executive: Melchor Rubin MD #### LUPPRO #### [address] [address] Engagement Executive: Temo Tipton MD [address] [place] [address] Engagement Executive: Christian Hanley MDGFR/1.73 sq M.predicted among non-blacks MDRD (S/P/Bld) [Vol rate/Area]38 mL/min/{1.73_m2}Low>60Tr[facility] Health SystemComment on above:Result Comment: These results are not intended for [...] or following therapy that affects renal tubular secretion.Performed By: #### APTMUT, AMTHFR #### [facility] [address] [place] [address] Engagement Executive: Melchor Rubin MD #### LUPPRO #### [facility] [address] [place] [address] Engagement Executive: Temo Tipton MD [address] [place] [address] Engagement Executive: Christian Hanley MDGlucose [Mass/Vol]110 mg/hYHhmn72-20Yezsr [facility] HospitalComment on above:Performed By: #### APTMUT, AMTHFR #### [facility] [address] [place] [address] Engagement Executive: Melchor Rubin MD #### LUPPRO #### [address] [address] Engagement Executive: Temo Tipton MD [address] [place] [phone] Engagement Executive: Christian Hanley MDPotassium [Moles/Vol]2.5 mmol/LCritically low 3.7-5.3MOhio State Health System HospitalComment on above:Performed By: #### APTMUT, AMTHFR #### [facility] [address] [place] [address] Engagement Executive: Melchor Rubin MD #### LUPPRO #### [address] [address] Engagement Executive: Temo Tipton MD [address] [place] [address] Engagement Executive: Christian Hanley MDProtein [Mass/Vol]9.4 g/dLHigh6.6-8.7Tr[facility] Health SystemComment on above:Performed By: #### MAGGIE, AMTHFR #### [facility] [address] [place] [address] Engagement Executive: Melchor Rubin MD #### LUPPRO #### [address] [address] Engagement Executive: Temo Tipton MD [address] [place] [address] Engagement Executive: Christian Hanley MDSodium [Moles/Vol]135 mmol/LEuw581-106Vcbnz [facility] HospitalComment on above:Performed By: #### APTMUT, AMTHFR #### [facility] [address] [place] [address] Engagement Executive: Melchor Rubin MD #### LUPPRO #### [facility] [address] [place] [address] Engagement Executive: Temo Tipton MD [facility] [address] [place] [address] Dr. [place], [place] [phone] Engagement Executive: Christian Hanley MDUrea nitrogen [Mass/Vol]32 mg/dL29 Wade StreetComment on above:Performed By: #### APTMUT, AMTHFR #### [facility] [address] [place] [address] Engagement Executive: Melchor Rubin MD #### LUPPRO #### [facility] [address] [place] [address] Engagement Executive: Temo Tipton MD [facility] [address] [place] [address] Dr. [place], [place] [phone] Engagement Executive: Christian Hanley MDEKG 12 LeadOrdered By: Richard Solis on 04-25-2025 Atrial Giai223CNDShm [employer] Work Phone: P Dpud09yhgbbvbEteSymplified Work Phone: [phone]-R Uyglsssz187 msSymplified Work Phone: [phone]-T Pwxgunzz281 msBon [employer] Work Phone: QRS Oemzlygr25 msBon [employer] Work Phone: QTc Calculation (Pio)456 msBon [employer] Work Phone: R Ejxn086elsiqyeZbc [employer] Work Phone: [phone] Hgiu18qlidflfRuk [facility] Medical CenterDekal[facility] Work Phone: Ventricular Kzof750DLUCpa [employer] Work Phone: Bon [employer] Work Phone: ekg 12 Leadon 39-06-5455Rorew tachycardia Rightward axis Nonspecific ST abnormality Abnormal ECG ECG not diagnostic for Acute Coronary Syndrome; consider clinical findings No previous ECGs available Confirmed by Richard Solis ([id number]) on 04/25/2025 8:17:48 PMPHOEBE SUMTER MEDICAL CENTERRichard Solis MD - 04/25/2025 Sinus tachycardia Rightward axis Nonspecific ST abnormality Abnormal ECG ECG not diagnostic for Acute Coronary Syndrome; consider clinical findings No previous ECGs available Confirmed by Richard Solis ([id number]) on 04/25/2025 8:17:48 PM Bon [facility] HospitalHCG Qualitative, Serumon 44-18-3760BCP ( test) QlNegativeNEGATIVEUva Health University HospitalComment on above:Specimens with hCG levels near the threshold of the test (25 mIU/mL) may give a negative or indeterminate result. In such cases, another test should be performed with a new specimen in 48-72 hours. If early is suspected clinically in this setting, correlation with quantitative serum b-hCG level is suggested. [facility] PeoplePerHour.comHCG Screen, Bloodon 17-88-7077RUA Screen, BloodNegative NormalNEGMercy Veterans Administration Medical Center on above:Result Comment: Specimens with hCG levels near the threshold of the test (25 mIU/mL) may give a negative or indeterminate result. In such cases, another test should be performed with a new specimen in 48-72 hours. If early is suspected clinically in this setting, correlation with quantitative serum b-hCG level is suggested.Performed By: #### APTMUT, AMTHFR #### [facility] [address] [place] [address] Engagement Executive: Melchor Rubin MD #### LUPPRO #### [employer] [address] [place] [address] Engagement Executive: Temo Tipton MD [facility] [address] [place] [address] Engagement Executive: Christian Hanley MDLipaseon 90-08-5909Apfgat [Catalytic activity/Vol] 96 U/LHigh13 - 60 U/LBon [facility] HospitalLipase [Catalytic activity/Vol]96 U/YUluc03-14Cpwvp [facility] Administration Medical CenterComment on above:Performed By: #### APTMUT, AMTHFR #### [facility] [address] [place] [address] Engagement Executive: Melchor Rubin MD #### LUPPRO #### [facility] [address] [place], [place] [id number] Engagement Executive: Temo Tipton MD [facility] [address] [place] [address] Engagement Executive: Christian Hanley MDMagnesiumon 95-84-7165Sagmohhdusdrhz and review of laboratory resultsAbnormalUva Health University HospitalMagnesium [Mass/Vol]2.9 mg/dL High1.6 - 2.6 mg/dLBon [facility] Health CenterMagnesium [Mass/Vol]2.9 mg/dLHigh1.6-2.6Mercy Veterans Administration Medical CenterComment on above:Performed By: #### MG #### [facility] [address] [place] [address] Engagement Executive: Christian Hanley MDMicroscopic Urinalysison 79-73-1944Uwlaqvvzvi cells LM.HPF (Urine sed) [#/Area]2 TO 5Bon [facility] HospitalRBC LM.HPF (Urine sed) [#/Area]NoneBon [facility] HospitalWBC LM.HPF (Urine sed) [#/Area]0 TO 2 Bon [facility] Centerours [facility] Lafayette CountyNo Panel Informationon 21-33-2763Dazcsnmpyjhdks and review of laboratory resultsAbnormalBon SecCHI St. [facility] HealthUrinalysison 23-34-1176Tvvngnscb Ql (U) NegativeNEGATIVEBon SecOchsner Medical Center HealthClarity (U)ClearClearBon SecOchsner Medical Center HealthColor (U)YellowYellowBon [facility] HospitalGlucose Test strip (U) [Mass/Vol]NegativeNEGATIVE mg/dLBon [facility] HospitalHemoglobin Auto test strip Ql (U)TRACEAbnormalNEGATIVEBon [facility] HospitalInterpretation and review of laboratory resultsAbnormalBon SecZanesville City HospitalKetones (U) [Mass/Vol]TRACEAbnormalNEGATIVE mg/dLBon [facility] HospitalLeukocyte esterase Test strip Ql (U)NegativeNEGATIVEBon [facility] HospitalNitrite Ql (U)Negative NEGATIVEBon [facility] HospitalpH (U)6.5 [pH]5.0 - 9.0Bon [facility] Protein (U) [Mass/Vol]NegativeNEGATIVE mg/dLBon [facility] HospitalSpecific gravity (U) [Rel density]Low1.010 - 1.020Bon [facility] HospitalUrobilinogen Qn (U)Normal0.0 - 1.0 EU/dLBon [facility] Urinalysis, Routineon 89-41-9119Kdonfrmcq, SemiQt,UrNegativeNormalProMedica Flower HospitalComment on above:Performed By: #### TYS #### [facility] [address] [place] [address] Engagement Executive: Bessy Singh, UrineTRACEHolzer Hospital Comment on above:Performed By: #### TYS #### [facility] [address] [place] [address] Engagement Executive: JESSICA Singhlarity (ClearNormalCMercy Health [facility] Hospital Comment on above:Performed By: #### TYS #### [facility] [address] [place] [address] Engagement Executive: JESSICA Singholor (YellowNoParma Community General Hospital Comment on above:Performed By: #### TYS #### [facility] [address] [place] [address] Engagement Executive: Christian Hanley MDGlucose Ql (U)NegativeNormalNEGMercy Veterans Administration Medical CenterComment on above:Performed By: #### TYS #### [facility] [address] [place] [address] [place] [address] Engagement Executive: Christian Hanley MDKetones Ql (U)TRACEAbnormalNEGMercy Richmond HospitalComment on above:Performed By: #### TYS #### [facility] [address] [place] [address] Dr. [place], [place] [phone] Engagement Executive: Christian Hanley MDLeukocyte esterase Test strip Ql (U)NegativeNormal NEGMercy Veterans Administration Medical CenterComment on above:Performed By: #### TYS #### [address] [place] [address] Engagement Executive: Christian Hanley MDNitrite,UrNegativeNormalNEGTrinity Health System Comment on above:Performed By: #### TYS #### [facility] [address] [place] [address] [place] [address] Engagement Executive: NAE Singh,Ur6.4Ktigmt2.0-9.0Trinity Health SystemComment on above:Performed By: #### TYS #### [address] [place] [address] Engagement Executive: AWILDA Singhrotein Ql (U)NegativeNormalNEGOhiohealth Dublin Methodist Hospital HospitalComment on above:Performed By: #### TYS #### [facility] [address] [place] [address] [place] [address] Engagement Executive: FREYA Singhpec. [place],Ur<1.176Vnq7.010-1.020Mercy Veterans Administration Medical CenterComment on above:Performed By: #### TYS #### [facility] [address] [place] [address] Dr. [place], [place] [id number] Engagement Executive: Christian Hanley MDUrobilinogen,UrNormalNormal0.0-1.0Trinity Health SystemComment on above:Performed By: #### TYS #### [facility] [address] [place], [place] [phone] Engagement Executive: Christian Hanley MDUrinalysis,Microon 86-57-3424Lcrbvhzfgv cells LM Ql (Urine sed)2 TO 1Peoyrs4-82WvrtrTrinity Health SystemComment on above:Performed By: #### TYS #### [facility] [address] [place] [address] Engagement Executive: Louann Singh RBC'sNoneNormal0-2MAkron Children's Hospital Comment on above:Performed By: #### TYS #### [facility] [address] [place] [address] Engagement Executive: Louann Singh WBC's0 TO 5Piezhi0-3AxlgvTrinity Health System Comment on above:Performed By: #### TYS #### [facility] [address] [place], [place] 4169[address] Engagement Executive: Christian Hanley MDBADhruv METABOLIC PANELon 59-53-2999Zjcnf gap [Moles/Vol]11 mmol/LNormal5-15ProMedica [facility]astar Community HospitalComment on above: Performed By: #### IJEOMA CMP, 1988-02, , 76745-6, 5643-2, 2157-03 #### [facility] ([id number]) [address] [place] [address] 03098Bxiwcxv [Mass/Vol]9.4 mg/dLNormal8.5-10.5ProMedica Elastar Community HospitalComment on above:Performed By: #### ANISHA CMP, 1988-02, 87340-7, 98745-9, 5643-2, 2156-6 #### [facility] ([id number]) [address] [place] [address] 56321Afewvfyq [Moles/Vol]104 mmol/WZszwrs97-570VvtKsvvgsShelby Memorial HospitalComment on above:Performed By: #### SYED RAPHAEL, 1988-02, , 19183-0, 5642-2, 2157-03 #### [facility] ([id number]) [address] [place] [address] 82160ZI3 [Moles/Vol]24 mmol/EVrzzwo85-53SynHmbxefAdena Health System Comment on above:Performed By: #### SYED RAPHAEL, 1988-02, , 62208-5, 5642-2, 2157-03 #### [facility] ([id number]) [address] [place] [address] 68544Hqclluotgu [Mass/Vol]0.91 mg/dLNormal0.40-1.00Shelby Memorial HospitalComment on above:Result Comment: METHOD TRACEABLE TO IDMS STANDARD Performed By: #### SYED RAPHAEL, 1988-02, , 25412-1, 5642-2, 2157-03 #### [facility] ([id number]) [address] [place] [address] 00755KLW/1.73 sq M.predicted among non-blacks MDRD (S/P/Bld) [Vol rate/Area]90 mL/min/{1.73_m2}Normal>=60Shelby Memorial HospitalComment on above:Result Comment: Reported eGFR is based on the CKD-EPI 2020 equation that does not use a race coefficient.Performed By: #### SYED RAPHAEL, 1988-02, , 36276- 0, 5642-2, 2157-03 #### [facility] ([id number]) [address] [place] [address] 54412Iiwyojf [Mass/Vol]89 mg/sLGcknwb23-11LitJfmhxoShelby Memorial Hospital Comment on above:Performed By: #### SYED RAPHAEL, 1988-02, , 40861-5, 5643-2, 2157-03 #### [facility] ([id number]) [address] [place], [place] [address]Moyzuxnhu [Moles/Vol]4.2 mmol/LNormal3.5-5.0ProMemorial Hermann Greater Heights HospitalComment on above:Performed By: #### IJEOMA [facility], 1988-02, , 26434-9, 2, 2157-03 #### [facility] ([id number]) [address] [place] [address] 65860Ddfnfs [Moles/Vol]139 mmol/WZpgwhz622-942RsnLehhij [facility] HospitalComment on above:Performed By: #### SYED RAPHAEL, 1988-02, , 73190-3, 5642-11, 2157-03 #### [facility] ([id number]) [address] [place] [address] 49364Jckg nitrogen [Mass/Vol]18 mg/dLNormal5-23ProMemorial Hermann Greater Heights HospitalComment on above:Performed By: #### SYED RAPHAEL, 1988-02, , 17549-7, 5642-11, 2157-03 #### [facility] ([id number]) [address] [place] [address] 07922KRVRHRJHMFOTF, Son 96-04-3469EALWHGDDYLBRY, S29.6 mcg/mLNormal 10.0-40.0ProMemorial Hermann Greater Heights HospitalComment on above:Result Comment: ADDITIONAL INFORMATION This test was developed and its performance characteristics determined by [facility] in a manner consistent with CLIA requirements. This test has not been cleared or approved by the U.S. Food and Drug Administration. Test Performed by: [place] [id number] Engagement Executive: Ulysses Juarez Ph.D.; CLIA# [id number] By: #### SYED RAPHAEL, 1988-02, , 96405-2, 56-2, 2157-03 #### [facility] ([id number]) [address] [place] [address] 21059BACHN METABOLIC PANELon 07-43-4416Quvjf gap [Moles/Vol]9 mmol/L Normal5-15ProMemorial Hermann Greater Heights HospitalComment on above:Performed By: #### SYED RAPHAEL, 1988-02, , 15381-2, 2, 2157-03 #### [facility] ([id number]) [address] [place] [address] 03169Bkvardi [Mass/Vol]7.8 mg/dLLow8.5-10.5PAdena Health SystemComment on above:Performed By: #### SYED RAPHAEL, 1988-02, , 23075-4, 5642-2, 2157-03 #### [facility] ([id number]) [address] [place] [address] 14777Oquzhmda [Moles/Vol]98 mmol/SCmcbgv26-620KedHkhkduMemorial Hermann Greater Heights HospitalComment on above:Performed By: #### SYED RAPHAEL, 1988-02, , 40310-4, 5642-2, 2157-03 #### [facility] ([id number]) [address] [place] [address] 86708WR8 [Moles/Vol]27 mmol/CBaitsp15-45NgwIgqrlxAdena Health System Comment on above:Performed By: #### SYED RAPHAEL, 1988-02, , 06048-6, 5643-2, 2157-03 #### [facility] ([id number]) [address] [place] [address] 13931Iuxqxuqdxm [Mass/Vol]1.75 mg/dLHigh0.40-1.00Shelby Memorial HospitalComment on above:Result Comment: METHOD TRACEABLE TO IDMS STANDARD Performed By: #### SYED RAPHAEL, 1988-02, , 66779-0, 2, 2157-03 #### [facility] ([id number]) [address] [place] [address] 55803IUR/1.73 sq M.predicted among non-blacks MDRD (S/P/Bld) [Vol rate/Area]41 mL/min/{1.73_m2}Low>=60ProMemorial Hermann Greater Heights HospitalComment on above: Result Comment: Reported eGFR is based on the CKD-EPI 2020 equation that does not use a race coefficient.Performed By: #### SYED RAPHAEL, 1988-02, , 0, 5642-11, 2157-03 #### [facility] ([id number]) [address] [place] [address] 15039Wyiukxd [Mass/Vol]91 mg/wRDcjhwu24-82ZsvHlbfjqShelby Memorial Hospital Comment on above:Performed By: #### SYED RAPHAEL, 1988-02, , 06258-4, 5642-11, 2157-03 #### [facility] ([id number]) [address] [place] [address] 06616Vxlazaffp [Moles/Vol]3.1 mmol/LLow3.5-5.0ProMemorial Hermann Greater Heights HospitalComment on above:Performed By: #### SYED RAPHAEL, 1988-02, , 82731-7, 5642-11, 2157-03 #### [facility] ([id number]) [address] [place] [address] 11663Udenlg [Moles/Vol]134 mmol/JRdobcz763-064MtrVfsgjf [facility] HospitalComment on above:Performed By: #### SYED RAPHAEL, 1988-02, , 36670-2, 5643-2, 2157-03 #### [facility] ([id number]) [address] [place] [address] 39669Zcod nitrogen [Mass/Vol]21 mg/dLNormal5-23ProPomerene Hospitalca Elastar Community HospitalComment on above:Performed By: #### IJEOMA, [facility], 1988-02, , 82268-2, 5643-2, 2157-03 #### [facility] ([id number]) [address] [place] [address] 48938JIY WITH AUTO DIFFERENTIALon 79-95-5584ZMSQUNLVT ABSOLUTE COUNT (10*3/UL) BY AUTOMATED COUNT0.1 10*3/uLNormal0.0-0.2PAdena Health System Comment on above:Performed By: #### IJEOMA, [facility], 1988-02, , 33425-5, 5643-2, 2157-03 #### [facility] ([id number]) [address] [place] [address] 90137ZGHVSHEAM RELATIVE PERCENT BY AUTOMATED COUNT0.5 %Normal [facility] HospitalComment on above:Performed By: #### IJEOMA, [facility], 1988-02, , 72339-8, 43-2, 2157-03 #### [facility] ([id number]) [address] [place] [address] 22051OYPMTOYUSGW DIFFERENTIAL TYPEAUTOMATED DIFFERENTIALNormal [facility] HospitalComment on above:Performed By: #### IJEOMA, [facility], 1988-02, , 24383-4, 5643-2, 2157-03 #### [facility] ([id number]) [address] [place] [address] 11492Gacnkpoekyo (Bld) [#/Vol]0.1 10*3/uLNormal0.0-0.4ProMedica Boone HospitalComment on above:Performed By: #### CBCSusie, SYED, 1988-02, , 94983-5, 5643-2, 2157-03 #### [facility] ([id number]) [address] [place] [address] 62556RLWJAQTAZPY RELATIVE PERCENT BY AUTOMATED COUNT0.6 %Normal [facility] HospitalComment on above:Performed By: #### IJEOMA, [facility], 1988-02, , 39697-4, 5643-2, 2157-03 #### [facility] ([id number]) [address] [place] [address] 83174Tjzcxgvpqoq distribution width (RBC) [Ratio]13.2 %Yfqeic77.5-15 [facility] HospitalComment on above:Performed By: #### IJEOMA [facility], 1988-02, , 54973-3, 5642-2, 2157-03 #### [facility] ([id number]) [address] [place] [address] 07505Qwuoommuml (Bld) [Volume fraction]45.2 %Ddzbez12-21QxjCnbzlrShelby Memorial HospitalComment on above:Performed By: #### SYED RAPHAEL, 1988-02, , 49473-4, 5642-2, 2157-03 #### [facility] ([id number]) [address] [place] [address] 68846Ablvnbknjp (Bld) [Mass/Vol]15.7 g/kWQmij01.7-15.5ProMedica [facility] Community HospitalComment on above:Performed By: #### CBCA, CMP, 1988-02, , 47570-4, 5643-2, 2157-03 #### [facility] ([id number]) [address] [place] [address] 23778OMNWBYIMNAH ABSOLUTE COUNT (10*3/UL) BY AUTOMATED COUNT2.7 10*3/uLNormal1.0-3.5ProMedica [facility] Community HospitalComment on above:Performed By: #### CBCA, CMP, 1988-02, , 44278-1, 5643-2, 2157-03 #### [facility] ([id number]) [address] [place] [address] 15542HHVZTZGTJNP RELATIVE PERCENT BY AUTOMATED COUNT19.3 %Normal ProMAdventist Medical CenterComment on above:Performed By: #### CBCA, CMP, 1988-02, , 78402-9, 5643-2, 2157-03 #### [facility] ([id number]) [address] [place] [address] 13595ERV (RBC) [Entitic mass]29.2 jmSafigs03-07YwlUpfrisMemorial Hermann Greater Heights HospitalComment on above:Performed By: #### CBCA, CMP, 1988-02, , 05264-7, 5643-2, 2157-03 #### [facility] ([id number]) [address] [place] [address] 49566IJOT (RBC) [Mass/Vol]34.8 g/aVHoewze26-75XkgBzbccvMemorial Hermann Greater Heights HospitalComment on above:Performed By: #### CBCA, CMP, 1988-02, , 18925-3, 43-2, 2157-03 #### [facility] ([id number]) [address] [place] [address] 37436PHF (RBC) [Entitic vol]84 fEDbpjew43-622XofNoesfs [facility] HospitalComment on above:Performed By: #### CBCA, CMP, 1988-02, , 14163-9, 5643-2, 2157-03 #### [facility] ([id number]) [address] FLOOR [place], [place] [address]SMMTOOCCI ABSOLUTE COUNT (10*3/UL) BY AUTOMATED COUNT1.4 10*3/uLHigh0.0-0.9ProMemorial Herm[facility] Heights HospitalComment on above:Performed By: #### CBCA, CMP, 1988-02, , 64607-5, 5643-2, 2156-6 #### [facility] ([id number]) [address] [place] [address] 74699FJFAZFVMU RELATIVE PERCENT BY AUTOMATED COUNT10.3 %Normal [facility] HospitalComment on above:Performed By: #### CBCA, CMP, 1988-02, , 97315-5, 5643-2, 2157-03 #### [facility] ([id number]) [address] [place] [address] 71784WGWQJEPTFMT ABSOLUTE COUNT BY AUTOMATED COUNT9.7 10*3/uLHigh 1.5-6.6S[facility] Memorial HospitalComment on above:Performed By: #### CBCA, CMP, 1988-02, , 51799-0, 5643-2, 2157-03 #### [facility] ([id number]) [address] [place] [address] 60542ALQQKNXXMFD RELATIVE PERCENT BY AUTOMATED COUNT69.3 %Normal [facility] HospitalComment on above:Performed By: #### CBCA, CMP, 1988-02, , 57303-3, 5643-2, 2157-03 #### [facility] ([id number]) [address] [place] [address] 23442Mpapuirm mean volume (Bld) [Entitic vol]8.2 fLNormal7-12 [facility] HospitalComment on above:Performed By: #### CBCA, CMP, 1988-02, , 03708-7, 5643-2, 2156-6 #### [facility] ([id number]) [address] [place] [address] 59996Pjobwwhhi (Bld) [#/Vol]492 10*3/eHBadj047-994CreRifotuMemorial Hermann Greater Heights HospitalComment on above:Performed By: #### ANISHA, CMP, 1988-02, 96689-4, 68215-0, 5643-2, 2157-03 #### [facility] ([id number]) [address] [place] [address] 31239FXF COUNT5.39 X10E12/LHigh3.8-5.2PAdena Health System Comment on above:Performed By: #### IJEOMA, CMP, 1988-02, , 47743-6, 5643-2, 2157-03 #### [facility] ([id number]) [address] [place] [address] 18660GTC (Bld) [#/Vol]14.0 10*3/uLHigh4-11[facility] Comment on above:Performed By: #### IJEOMA, CMP, 1988-02, , 02988-2, 5643-2, 2157-03 #### [facility] ([id number]) [address] [place] [address] 68572LY TOTALon 42-70-3884NJK227 U/CMmja22-845KyaPvyrlqMemorial Hermann Greater Heights HospitalComment on above:Performed By: #### CBCA, CMP, 1988-02, , 58920-6, 5643-2, 2157-03 #### [facility] ([id number]) [address] [place] [address] 03823ASCPZBMYSTLMY METABOLIC PANELon 64-60-5687Ypykaqr [Mass/Vol]5.7 g/dLHigh3.2-5.3PAdena Health SystemComment on above:Performed By: #### CBCA, CMP, 1988-02, 57948-6, 75208-2, 5643-2, 2157-03 #### [facility] ([id number]) [address] [place] [address] 06391DZU [Catalytic activity/Vol]85 U/KJuomzq41-232PevUjnunqMemorial Hermann Greater Heights HospitalComment on above:Performed By: #### SYED RAPHAEL, 1988-02, , 54087-8, 5643-2, 2157-03 #### [facility] ([id number]) [address] [place] [address] 59852MQR [Catalytic activity/Vol]32 U/LHigh<=31ProMedParnassus campusComment on above:Performed By: #### SYED RAPHAEL, 1988-02, , 29067-0, 5642-2, 2157-03 #### [facility] ([id number]) [address] [place] [address] 08783Tygob gap [Moles/Vol]18 mmol/LHigh5-15ProMemorial Hermann [facility] Heights HospitalComment on above:Performed By: #### SYED RAPHAEL, 1988-02, , 16584-8, 5642-2, 2157-03 #### [facility] ([id number]) [address] [place] [address] 19001QFL [Catalytic activity/Vol]27 U/LNormal<=41ProMemorial Hermann Greater Heights HospitalComment on above:Performed By: #### SYED RAPHAEL, 1988-02, , 24720-8, 5643-2, 2157-03 #### [facility] ([id number]) [address] [place] [address] 77108Gieifvvjl [Mass/Vol]1.1 mg/dLNormal0.3-1.2PAdena Health SystemComment on above:Performed By: #### SYED RAPHAEL, 1988-02, , 88818-2, 5643-2, 2157-03 #### [facility] ([id number]) [address] [place] [address] 90768Kjrwkhl [Mass/Vol]10.1 mg/dLNormal8.5-10.5PAdena Health SystemComment on above:Performed By: #### SYED RAPHAEL, 1988-02, , 13197-8, 5643-2, 2157-03 #### [facility] ([id number]) [address] [place] [address] 83623Petzbbxd [Moles/Vol]86 mmol/SQug04-312JpuPbfjbeMemorial Hermann Greater Heights HospitalComment on above:Performed By: #### SYED RAPHAEL, 1988-02, , 12904-6, 2, 2157-03 #### [facility] ([id number]) [address] [place] [address] 57089GY9 [Moles/Vol]30 mmol/DJncybz36-33BucNubwqzAdena Health System Comment on above:Performed By: #### SYED RAPHAEL, 1988-02, , 20990-6, 56-2, 2157-03 #### [facility] ([id number]) [address] [place] [address] 59016Aijdoxwkco [Mass/Vol]2.38 mg/dLHigh0.40-1.00S[facility] Memorial HospitalComment on above:Result Comment: METHOD TRACEABLE TO IDMS STANDARD Performed By: #### SYED RAPHAEL, 1988-02, , 32455-0, 5643-2, 2157-03 #### [facility] ([id number]) [address] [place] [address] 41160NOW/1.73 sq M.predicted among non-blacks MDRD (S/P/Bld) [Vol rate/Area]29 mL/min/{1.73_m2}Low>=60ProMemorial Hermann Greater Heights HospitalComment on above: Result Comment: Reported eGFR is based on the CKD-EPI 2020 equation that does not use a race coefficient.Performed By: #### SYED RAPHAEL, 1988-02, , 67761- 0, 5642-11, 2157-03 #### [facility] ([id number]) [address] [place] [address] 36831Clrexsv [Mass/Vol]110 mg/rVZopb53-15AsrFhfdqpShelby Memorial Hospital Comment on above:Performed By: #### SYED RAPHAEL, 1988-02, , 22743-0, 5642-11, 2157-03 #### [facility] ([id number]) [address] [place] [address] 66355Gpkmtjfln [Moles/Vol]2.8 mmol/LLow3.5-5.0Pro[facility] HospitalComment on above:Performed By: #### SYED RAPHAEL, 1988-02, , 29283-3, 5642-11, 2157-03 #### [facility] ([id number]) [address] [place] [address] 82515Hstueyo [Mass/Vol]9.9 g/dLHigh6.0-8.0[facility] Comment on above:Performed By: #### SYED RAPHAEL, 1988-02, , 78374-7, 5642-11, 2157-03 #### [facility] ([id number]) [address] [place] [address] 17684Idhsji [Moles/Vol]134 mmol/AFuykev968-048SwfLrfidr [facility]rem[facility] HospitalComment on above:Performed By: #### SYED RAPHAEL, 1988-02, , 54406-1, 5642-11, 2157-03 #### [facility] ([id number]) [address] [place] [address] 36309Sqwb nitrogen [Mass/Vol]26 mg/dLHigh5-23Pro[facility] HospitalComment on above:Performed By: #### IJEOMA CMP, 1988-02, , 23369-6, 5643-2, 2157-03 #### [facility] ([id number]) [address] [place] [address] 75726BMODAAWQAsf [id number] [Mass/Vol]2.5 mg/dLNormal 1.8-2.6ProMem[facility] HospitalComment on above:Performed By: #### CBCA, CMP, 1988-02, , 45886-4, 5643-2, 2157-03 #### [facility] ([id number]) [address] [place] [address] 02876FAYWYVOAA, SERUMon 84-69-7622EUZLB DDJIZDJUD04.3 ng/mLHigh 14.3-65.8ProMemorial Hermann Greater Heights HospitalComment on above:Performed By: #### CBCA, CMP, 1988-02, , 72575-8, 5643-2, 2157-03 #### [facility] ([id number]) [address] [place] [address] 27312PGL WITH AUTO DIFFERENTIALon 89-31-0843CNJAIEAYX ABSOLUTE COUNT (10*3/UL) BY AUTOMATED COUNT0.1 10*3/uLNormal0.0-0.2PAdena Health System Comment on above:Performed By: #### CBCA, CMP, 1988-02, , 28088-4, 5643-2, 2157-03 #### [facility] ([id number]) [address] [place] [address] 73398HXKKJPEUU RELATIVE PERCENT BY AUTOMATED COUNT0.5 %Normal ProMAdventist Medical CenterComment on above:Performed By: #### CBCA, CMP, 1988-02, , 78005-1, 5643-2, 2157-03 #### [facility] ([id number]) [address] [place], [place] [address]XXSRNFRJLNL DIFFERENTIAL TYPEAUTOMATED DIFFERENTIALNormal [facility] HospitalComment on above:Performed By: #### SYED RAPHAEL, 1988-02, , 53128-5, 5643-2, 2157-03 #### [facility] ([id number]) [address] [place] [address] 57196Gwudtrcsiek (Bld) [#/Vol]0.1 10*3/uLNormal0.0-0.4S[facility] HospitalComment on above:Performed By: #### SYED RAPHAEL, 1988-02, , 66688-1, 56-2, 2157-03 #### [facility] ([id number]) [address] [place] [address] 63557MELOZEZVHMY RELATIVE PERCENT BY AUTOMATED COUNT0.7 %Normal [facility] HospitalComment on above:Performed By: #### SYED RAPHAEL, 1988-02, , 88331-8, 5642-2, 2157-03 #### [facility] ([id number]) [address] [place] [address] 89783Acmwlatjuxx distribution width (RBC) [Ratio]13.0 %Ypfano04.5-15 [facility] HospitalComment on above:Performed By: #### SYED RAPHAEL, 1988-02, , 53776-8, 5643-2, 2157-03 #### [facility] ([id number]) [address] [place] [address] 18644Qrmxndcfzv (Bld) [Volume fraction]37.0 %Jtmsjg01-26EfkYddkjgMemorial Hermann Greater Heights HospitalComment on above:Performed By: #### SYED RAPHAEL, 1988-02, , 91121-8, 5643-2, 2157-03 #### [facility] ([id number]) [address] [place] [address] 43002Jsqccqhwrm (Bld) [Mass/Vol]12.6 g/sGWxkzor10.7-15.5PAdena Health SystemComment on above:Performed By: #### CBCA, CMP, 1988-02, 78580-9, 54368-5, 5643-2, 2157-03 #### [facility] ([id number]) [address] [place] [address] 96081FPAVYKGHDVC ABSOLUTE COUNT (10*3/UL) BY AUTOMATED COUNT1.4 10*3/uLNormal1.0-3.5PAdena Health SystemComment on above:Performed By: #### CBCA, CMP, 1988-02, , 57780-8, 5643-2, 2157-03 #### [facility] ([id number]) [address] [place] [address] 62890FUGHSGHWDQG RELATIVE PERCENT BY AUTOMATED COUNT11.3 %Normal [facility] HospitalComment on above:Performed By: #### CBCA, CMP, 1988-02, , 54911-8, 5642-2, 2157-03 #### [facility] ([id number]) [address] [place] [address] 73645KNY (RBC) [Entitic mass]29.0 vhJiyqcf00-67UuzPwmpdqMemorial Hermann Greater Heights HospitalComment on above:Performed By: #### CBCA, CMP, 1988-02, , 01337-5, 5643-2, 2157-03 #### [facility] ([id number]) [address] [place] [address] 96145SDNK (RBC) [Mass/Vol]34.1 g/pUGpeodt46-52EkjCfdpicMemorial Hermann Greater Heights HospitalComment on above:Performed By: #### CBCA, CMP, 1988-02, , 72121-7, 5643-2, 2157-03 #### [facility] ([id number]) [address] [place] [address] 29122WNK (RBC) [Entitic vol]85 mVSendvh05-674BmkRxfnek [facility] HospitalComment on above:Performed By: #### CBCA, CMP, 1988-02, 55694-8, 59561-6, 5643-2, 2157-03 #### [facility] ([id number]) [address] [place] [address] 86871SDOLYZYJM ABSOLUTE COUNT (10*3/UL) BY AUTOMATED COUNT0.7 10*3/uLNormal0.0-0.9ProMemorial Herm[facility] HospitalComment on above:Performed By: #### CBCA, CMP, 1988-02, , 57120-3, 5643-2, 2157-03 #### [facility] ([id number]) [address] [place] [address] 30069RCQGBXFMM RELATIVE PERCENT BY AUTOMATED COUNT5.5 %Normal [facility] HospitalComment on above:Performed By: #### CBCA, CMP, 1988-02, , 05593-3, 43-2, 2157-03 #### [facility] ([id number]) [address] [place] [address] 15036ETESYCBBJPL ABSOLUTE COUNT BY AUTOMATED COUNT10.4 10*3/uLHigh 1.5-6.6ProMemorial [facility] HospitalComment on above:Performed By: #### CBCA, CMP, 1988-02, , 28727-2, 5643-2, 2157-03 #### [facility] ([id number]) [address] [place] [address] 07781MHCEEZZNHUK RELATIVE PERCENT BY AUTOMATED COUNT82.0 %Normal [facility] HospitalComment on above:Performed By: #### CBCA, CMP, 1988-02, , 31448-0, 5643-2, 2157-03 #### [facility] ([id number]) [address] [place] [address] 45632Griwjuwv mean volume (Bld) [Entitic vol]7.8 fLNormal7-12 [facility] HospitalComment on above:Performed By: #### SYED RAPHAEL, 1988-02, , 75132-7, 5642-2, 2157-03 #### [facility] ([id number]) [address] [place] [address] 87628Pgkntrdgh (Bld) [#/Vol]373 10*3/hKOmmdam761-847WpyOdekooShelby Memorial HospitalComment on above:Performed By: #### SYED RAPHAEL, 1988-02, , 14918-8, 5642-2, 2157-03 #### [facility] ([id number]) [address] [place] [address] 30641ZQM COUNT4.35 X10E12/LNormal3.8-5.2PAdena [facility] Comment on above:Performed By: #### SYED RAPHAEL, 1988-02, , 34406-4, 5642-2, 2157-03 #### [facility] ([id number]) [address] [place] [address] 02298GPJ (Bld) [#/Vol]12.7 10*3/uLHigh4-11[facility] Comment on above:Performed By: #### IJEOMA, SYED, 1988-02, , 85683-6, 43-2, 2157-03 #### [facility] ([id number]) [address] [place] [address] 00743DWTWYJRMDHHVY METABOLIC PANELon 62-07-4879Wjlccxl [Mass/Vol]4.4 g/dLNormal3.2-5.3PAdena Health SystemComment on above:Performed By: #### SYED RAPHAEL, 1988-02, , 21192-5, 5643-2, 2157-03 #### [facility] ([id number]) [address] [place] [address] 49744BTN [Catalytic activity/Vol]71 U/XCatdty83-624YgaQlycpiMemorial Hermann Greater Heights HospitalComment on above:Performed By: #### SYED RAPHAEL, 1988-02, , 55067-9, 43-2, 2157-03 #### [facility] ([id number]) [address] [place] [address] 45809XHQ [Catalytic activity/Vol]24 U/LNormal<=31ProMedParnassus campusComment on above:Performed By: #### SYED RAPHAEL, 1988-02, , 01976-4, 5642-11, 2157-03 #### [facility] ([id number]) [address] [place] [address] 27130Pxobk gap [Moles/Vol]9 mmol/LNormal5-15Pro[facility] HospitalComment on above:Performed By: #### SYED RAPHAEL, 1988-02, , 76375-0, 5642-, 2157-03 #### [facility] ([id number]) [address] [place] [address] 41831WDU [Catalytic activity/Vol]20 U/LNormal<=41ProMem[facility] HospitalComment on above:Performed By: #### SYED RAPHAEL, 1988-02, , 15832-7, 5642-2, 2157-03 #### [facility] ([id number]) [address] [place] [address] 29250Zuanfydja [Mass/Vol]0.6 mg/dLNormal0.3-1.2PAdena Health SystemComment on above:Performed By: #### SYED RAPHAEL, 1988-02, , 02115-5, 43-2, 2157-03 #### [facility] ([id number]) [address] [place] [address] 07255Tnusayd [Mass/Vol]9.2 mg/dLNormal8.5-10.5PAdena Health SystemComment on above:Performed By: #### IJEOMA [facility], 1988-02, , 95974-5, 2, 2157-03 #### [facility] ([id number]) [address] [place] [address] 35164Eiazlycn [Moles/Vol]103 mmol/FNdzitk92-874IiqMfpuceMemorial Hermann Greater Heights HospitalComment on above:Performed By: #### SYED RAPHAEL, 1988-02, , 67194-4, 5642-11, 2157-03 #### [facility] ([id number]) [address] [place] [address] 64267YP6 [Moles/Vol]25 mmol/JCvsihz70-71TclUcqauqAdena Health System Comment on above:Performed By: #### SYED RAPHAEL, 1988-02, , 69225-6, 5642-11, 2157-03 #### [facility] ([id number]) [address] [place] [address] 41316Vbbuxeyuho [Mass/Vol]0.90 mg/dLNormal0.40-1.00ProMemorial Herm[facility] Heights HospitalComment on above:Result Comment: METHOD TRACEABLE TO IDMS STANDARD Performed By: #### SYED RAPHAEL, 1988-02, , 17801-5, 5642-11, 2157-03 #### [facility] ([id number]) [address] [place] [address] 38826DHTU (CKD-EPI) NON-RACE DEPENDENT>^90Normal>=60ProMemorial Hermann Greater Heights HospitalComment on above:Result Comment: eGFR not reported due to non- numeric value for Creatinine. Reported eGFR is based on the CKD-EPI 2020 equation that does not use a race coefficient.Performed By: #### SYED RAPHAEL, 1988-02, , 15218- 0, 5642-2, 2157-03 #### [facility] ([id number]) [address] [place] [address] 93786Olvecvc [Mass/Vol]97 mg/lRLzclmr44-09AqqDrmkmjShelby Memorial Hospital Comment on above:Performed By: #### SYED RAPHAEL, 1988-02, , 52721-9, 5642-11, 2157-03 #### [facility] ([id number]) [address] [place] [address] 87765Iyxjawjar [Moles/Vol]4.0 mmol/LNormal3.5-5.0ProMemorial Herm[facility] Heights HospitalComment on above:Performed By: #### SYED RAPHAEL, 1988-02, , 40623-6, 5642-11, 2157-03 #### [facility] ([id number]) [address] [place] [address] 25432Ebcgzsm [Mass/Vol]8.1 g/dLHigh6.0-8.0[facility] Comment on above:Performed By: #### SYED RAPHAEL, 1988-02, , 77485-2, 5642-11, 2157-03 #### [facility] ([id number]) [address] [place] [address] 56804Mfunde [Moles/Vol]137 mmol/JQafdhm948-153JcuAnqjmb [facility] HospitalComment on above:Performed By: #### SYED RAPHAEL, 1988-02, , 66296-6, 5642-2, 2157-03 #### [facility] ([id number]) [address] [place], [place] [address]Ehup nitrogen [Mass/Vol]12 mg/dLNormal5-[facility] HospitalComment on above:Performed By: #### SYED RAPHAEL, 1988-02, , 71770-4, 5643-2, 2157-03 #### [facility] ([id number]) [address] [place] [address] 45616FQOMXQyq 21-74-0475Nfuzxp [Catalytic activity/Vol]27 U/LNormal 17-40S[facility] HospitalComment on above:Performed By: #### SYED RAPHAEL, 1988-02, , 36985-6, 5643-2, 2157-03 #### [facility] ([id number]) [address] [place] [address] 78523YKZY NURSING URINE MACROSCOPIC UAon 14-12-9147TPEDASJSV KRISTA NegativeNormflNegAdena Fayette Medical CenterComment on above:Performed By: #### SYED RAPHAEL, 1988-02, , 17196-4, 5643-2, 2157-03 #### [facility] ([id number]) [address] [place] [address] 60312ZBWMU/HGB NURNegativeLakelandNegAdena [facility]ayette Medical Center Comment on above:Performed By: #### SYED RAPHAEL, 1988-02, , 34897-8, 5643-2, 2157-03 #### [facility] ([id number]) [address] [place] [address] 12883DUPLAUM NURNegativeNoalNegAdena [facility]ayette [facility] Center Comment on above:Performed By: #### SYED RAPHAEL, 1988-02, , 43726-5, 5643-2, 2157-03 #### [facility] ([id number]) [address] [place] [address] 24775NYOWVOZ NURNegativeNormalNegativeGerman Hospitalmont Hospital Comment on above:Performed By: #### IJEOMA, SYED, 1988-02, , 60522-1, 5643-2, 2157-03 #### [facility] ([id number]) [address] [place] [address] [place] [address]ZDNAYYUDP ESTERASE NURNegativeNormalNegAdena Fayette Medical CenterComment on above:Performed By: #### IJEOMA, SYED, 1988-02, , 33676-5, 43-2, 2157-03 #### [facility] ([id number]) [address] [place] [address] 17568TTRMYDI NURNegativeNormalNegAdena [facility] Comment on above:Performed By: #### SYED RAPHAEL, 1988-02, , 00241-9, 5642-2, 2157-03 #### [facility] ([id number]) [address] [place] [address] 10406NR NUR7.8Uabghy0.0, 6.0, 6.5, 7.0, 7.5, 8.0, 8.5, 5.5Pro[facility]astar Community HospitalComment on above:Performed By: #### IJEOMA, SYED, 1988-02, , 97644-2, 43-2, 2157-03 #### [facility] ([id number]) [address] [place] [address] [place] [address]MWJAUEN NURTraceAbnormalOhioHealth Van Wert Hospital Comment on above:Performed By: #### IJEOMA, SYED, 1988-02, , 25522-7, 5643-2, 2157-03 #### [facility] ([id number]) [address] [place] [address] [place] 69768LMIJYNZD GRAVITY NUR1.361Cpunag6.010, 1.015, 1.020, 1.025 [facility] HospitalComment on above:Performed By: #### SYED RAPHAEL, 1988-02, , 45999-3, 5643-2, 2157-03 #### [facility] ([id number]) [address] [place] [address] 20441SUBMEYLFGBLQ NUR0.2 E.U./dLNormalProMemorial [facility] Comment on above:Performed By: #### SYED RAPHAEL, 1988-02, , 63715-9, 5643-2, 2157-03 #### [facility] ([id number]) [address] [place] [address] 40473EHRC , URINE (NUCG)on 52-27-0708Mbxm HCG ( test) Ql (U)NegativeNormalNegativeShelby Memorial HospitalComment on above: Performed By: #### SYED RAPHAEL, 1988-02, , 09228-5, 56-2, 2157-03 #### [facility] ([id number]) [address] [place] [address] 01360TNSPS METABOLIC PANLon 74-64-9184Kuoeb gap [Moles/Vol]11 mmol/L Normal5-15S[facility] HospitalComment on above:Performed By: #### SYED RAPHAEL, 1988-02, , 30796-4, 56-2, 2157-03 #### [facility] ([id number]) [address] [place] [address] 59670Jctoyzb [Mass/Vol]9.6 mg/dLNormal8.5-10.5Pro[facility] HospitalComment on above:Performed By: #### SYED RAPHAEL, 1988-02, , 99508-0, 5643-2, 2157-03 #### [facility] ([id number]) [address] [place] [address] 12329Kzkaecet [Moles/Vol]99 mmol/RPfdaql37-406ZciGlcavaShelby Memorial HospitalComment on above:Performed By: #### SYED RAPHAEL, 1988-02, , 08690-9, 5642-2, 2157-03 #### [facility] ([id number]) [address] [place] [address] 96952GF3 [Moles/Vol]30 mmol/ZNczzel85-68CxsWpffslAdena Health System Comment on above:Performed By: #### SYED RAPHAEL, 1988-02, , 57647-8, 2, 2157-03 #### [facility] ([id number]) [address] [place] [address] 33664Ahxhcsrrtp [Mass/Vol]1.21 mg/dLHigh0.40-1.00S[facility] HospitalComment on above:Result Comment: METHOD TRACEABLE TO IDMS STANDARD Performed By: #### SYED RAPHAEL, 1988-02, , 46389-4, 5642-11, 2157-03 #### [facility] ([id number]) [address] [place] [address] 52506UQW/1.73 sq M.predicted among non-blacks MDRD (S/P/Bld) [Vol rate/Area]64 mL/min/{1.73_m2}Normal>59S[facility] Memorial HospitalComment on above:Result Comment: Reported eGFR is based on the CKD-EPI 2020 equation that does not use a race coefficient.Performed By: #### SYED RAPHAEL, 1988-02, , 59671- 0, 5642-2, 2157-03 #### [facility] ([id number]) [address] [place] [address] 12357Iuzbwhc [Mass/Vol]81 mg/aEYzvalw34-31AogJpcgnpShelby Memorial Hospital Comment on above:Performed By: #### SYED RAPHAEL, 1988-02, 99186-1, 43719-2, 5643-2, 2157-03 #### [facility] ([id number]) [address] [place] [address] 86392Qmbtjwtxg [Moles/Vol]4.4 mmol/LNormal3.5-5.0S[facility] HospitalComment on above:Performed By: #### SYED RAPHAEL, 1988-02, , 82752-7, 5642-2, 2157-03 #### [facility] ([id number]) [address] [place] [address] 73870Mjvmmk [Moles/Vol]140 mmol/JQnrsym438-896QpvWgigfeShelby Memorial HospitalComment on above:Performed By: #### SYED RAPHAEL, 1988-02, , 81236-4, 5642-11, 2157-03 #### [facility] ([id number]) [address] [place] [address] 60772Phsg nitrogen [Mass/Vol]18 mg/dLNormal5-23[facility] HospitalComment on above:Performed By: #### SYED RAPHAEL, 1988-02, , 92430-7, 5642-11, 2157-03 #### [facility] ([id number]) [address] [place] [address] 05845NW [Catalytic activity/Vol]on 86-09-3931RWS538 U/AUodk20-513 [facility] HospitalComment on above:Performed By: #### SYED RAPHAEL, 1988-02, , 61160-5, 5642-2, 2157-03 #### [facility] ([id number]) [address] [place] [address] 41317AFC AND AUTO DIFFon 82-09-8270Sqjg form neutrophils/100 WBC (Bld)2.0 %NormalProMercy Health St. [facility] HospitalComment on above:Performed By: #### SYED RAPHAEL #### [facility] ([id number]) [address], [address] [place], [place] [address]Onzbnhplnyx (Bld) [#/Vol]0.7 10*3/uLHigh0.0-0.4ProMercy Health [facility] HospitalComment on above:Performed By: #### CBCA, CMP #### [facility] ([id number]) [address], [address] [place], [place] [address]Smkrxcxemmk/100 WBC (Bld)6.9 %NormalMercy Health [facility] Hospital Hospital Comment on above:Performed By: #### CBCA, CMP #### [facility] ([id number]) [address], [address] [place], [place] [address]Tfbwvwnaghg distribution width (RBC) [Ratio]13.6 %Normal 11.5-15.0ProMercy Health St. [facility] HospitalComment on above:Performed By: #### CBCA, CMP #### [facility] ([id number]) [address], [address] [place], [place] [address]Boqksuuyuo (Bld) [Volume fraction]34.6 %Uku17-72JjeDkruzh [place] HospitalComment on above:Performed By: #### CBCA, CMP #### [facility] ([id number]) [address], [address] [place], [place] [address]Kgjbmmymdo (Bld) [Mass/Vol]11.6 g/dLLow11.7-15.5PKeenan Private Hospital HospitalComment on above:Performed By: #### CBCA, CMP #### [facility] ([id number]) [address], [address] [place], [place] [address]Gbcbpdpmucw (Bld) [#/Vol]3.3 10*3/uLNormal1.0-3.5PKeenan Private Hospital HospitalComment on above:Performed By: #### CBCA, CMP #### [facility] ([id number]) [address], [address] [place], [place] [address]Zfxvsuomqgu/100 WBC (Bld)31.7 %NormalThe University of [facility] Medical Centerca [facility] Comment on above:Performed By: #### CBCA, CMP #### [facility] ([id number]) [address], [address] [place], [place] [address]RRJ (RBC) [Entitic mass]30.3 dxBfcreb22-64XkbWcnhgd Hassan HospitalComment on above:Performed By: #### CBCA, CMP #### [facility] ([id number]) [address], [address] [place], [place] [address]JWCH (RBC) [Mass/Vol]33.6 g/uENulkum03-78VqiOlghpy Hassan HospitalComment on above:Performed By: #### CBCA, CMP #### [facility] ([id number]) [address], [address] [place], [place] [address]PRZ (RBC) [Entitic vol]90 eIAdawmd68-799OuoFjpivc [place] HospitalComment on above:Performed By: #### CBCA, CMP #### [facility] ([id number]) [address], [address] [place], [place] [address]Hphhlkuqi (Bld) [#/Vol]1.3 10*3/uLHigh0-0.9Pro[facility] HospitalComment on above:Performed By: #### CBCA, CMP #### [facility] ([id number]) [address], [address] [place], [place] [address]Dffuvujxn/100 WBC (Bld)12.9 %NormalThe University of Tol[place] Medical Centerca [facility] Comment on above:Performed By: #### CBCA, CMP #### [facility] ([id number]) [address], [address] [place], [place] [address]AYEIBOOVI5.0 %NormalProPomerene Hospitalca [place] HospitalComment on above: Performed By: #### CBCA, CMP #### [facility] ([id number]) [address], [address] [place], [place] [address]Hsnzhdcvamr (Bld) [#/Vol]4.9 10*3/uLNormal1.5-6.6ProMedica Hassan HospitalComment on above:Performed By: #### CBCA, CMP #### [facility] ([id number]) [address], [address] [place], [place] [address]Hlvtsfqy mean volume (Bld) [Entitic vol]8.1 fLNormal7-12 [facility] HospitalComment on above:Performed By: #### CBCA, CMP #### [facility] ([id number]) [address], [address] [place], [place] [address]Mohljpxzm (Bld) [#/Vol]222 10*3/uEQeazeq334-343PblVmsykw Hassan HospitalComment on above:Performed By: #### CBCA, CMP #### [facility] ([id number]) [address], [address] [place], [place] [address]WNK COUNT3.84 X10E12/LNormal3.80-5.20ProMer[facility] Hospital Comment on above:Performed By: #### CBCA, CMP #### [facility] ([id number]) [address], [address] [place], [place] [address]GVZ morphology finding Nom (Bld)NORMALNormalProMedica [place] Beach HospitalComment on above:Performed By: #### CBCA, CMP #### [facility] ([id number]) [address], [address] [place], [place] [address]ASR CHDOTUTCYI88.5 %NormalProMedica Hassan HospitalComment on above:Performed By: #### CBCA, CMP #### [facility] ([id number]) [address], [address] [place], [place] [address]RLB (Bld) [#/Vol]10.3 10*3/uLNormal4.0-11.0[place] Shriners HospitalComment on above:Performed By: #### CBCA, CMP #### [facility] ([id number]) [address] [place], [place] [address]VKR auto differentialon 57-17-4981Jaar form neutrophils/100 WBC (Bld)2 %[facility] CenterEosinophils (Bld) [#/Vol]0.7 10*3/uLShenandoah Memorial HospitalEosinophils/100 WBC (Bld)6.9 %[facility] CenterErythrocyte distribution width (RBC) [Ratio]13.6 %11.5 - 15.0 %[facility] Hematocrit (Bld) [Volume fraction]34.6 %Low35 - 47 %[facility] Hemoglobin (Bld) [Mass/Vol]11.6 g/dLLow11.7 - 15.5 g/dLAdena Pike Medical Center Interpretation and review of laboratory resultsAbnoAtrium Health Union Lymphocytes (Bld) [#/Vol]3.3 10*3/[facility] HospitalLymphocytes/100 WBC (Bld)31.7 %[facility] Medical CenterMCH (RBC) [Entitic mass]30.3 pg27 - 34 pg [facility] CenterMCHC (RBC) [Mass/Vol]33.6 g/dL32 - 36 g/dLAdena Pike Medical CenterMCV (RBC) [Entitic vol]90 fL80 - 100 [facility] Monocytes (Bld) [#/Vol]1.3 10*3/uLShenandoah Memorial HospitalMonocytes/100 WBC (Bld)12.9 %[facility] CenterMyelocytes/100 WBC (Bld)1 %[facility] Medical CenterNeutrophils (Bld) [#/Vol]4.9 10*3/uLAdena Pike Medical CenterPlatelet mean volume (Bld) [Entitic vol]8.1 fL7 - 12 [facility] HospitalPlatelets (Bld) [#/Vol]222 10*3/uLProMedica Health SystemPolymorphonuclear cells/100 WBC (Bld) NORMALProPromedica Fostoria Community Hospital SystemRBC (Bld) [#/Vol]3.84 10*6/uLProJ.W. Ruby Memorial Hospitalegmented neutrophils/100 WBC (Bld)45.5 %ProMThe Surgical Hospital at SouthwoodsWBC corrected for nucl RBC Auto (Bld) [#/Vol]10.3PNationwide Children's HospitalProSamaritan Hospital Totalon 21-35-8374OD [Catalytic activity/Vol]2824 U/LHigh24 - 170 U/LProMedLakeHealth TriPoint Medical Center [Catalytic activity/Vol]on 24-95-2590GRV5916 U/KOfqg35-703ObhGiitjs [place] HospitalComment on above:Performed By: #### CBCA, CMP #### [facility] ([id number]) [address], [address] [place], [place] [address]UXEUBABHFUYYQ METABOLIC PANELon 58-80-4218Xctebyy [Mass/Vol]3.3 g/dLNormal3.2-5.3PEast Liverpool City HospitalComment on above:Performed By: #### CBCA, CMP #### [facility] ([id number]) [address], [address] [place], [place] [address]OBZ [Catalytic activity/Vol]94 U/LDnsoaj32-198YmpSubqxd [place] HospitalComment on above:Performed By: #### CBCA, CMP #### [facility] ([id number]) [address], [address] [place], [place] [address]NRB [Catalytic activity/Vol]274 U/LHigh0-31PEast [place] City HospitalComment on above:Performed By: #### CBCA, CMP #### [facility] ([id number]) [address], [address] [place], [place] [address]Lxjxr gap [Moles/Vol]6 mmol/LNormal5-15[facility] Comment on above:Performed By: #### CBCA, CMP #### [facility] ([id number]) [address], [address] [place], [place] [address]NIB [Catalytic activity/Vol]107 U/LHigh0-41ProMedica Hassan HospitalComment on above:Performed By: #### IJEOMA, CMP #### [facility] ([id number]) [address], [address] [place], [place] [address]Pvtofaids [Mass/Vol]0.5 mg/dLNormal0.3-1.2ProMedProtestant Hospital HospitalComment on above:Performed By: #### IJEOMA, CMP #### [facility] ([id number]) [address], [address] [place], [place] [address]Srirxbr [Mass/Vol]8.6 mg/dLNormal8.5-10.5ProMedProtestant Hospital HospitalComment on above:Performed By: #### IJEOMA, CMP #### [facility] ([id number]) [address], [address] [place], [place] [address]Hixtaqsc [Moles/Vol]105 mmol/BRfrail03-226FvhQeldkm [place] HospitalComment on above:Performed By: #### IJEOMA, CMP #### [facility] ([id number]) [address], [address] [place], [place] [address]IE7 [Moles/Vol]30 mmol/JAjimkz09-41AhlSwtepj [facility] Comment on above:Performed By: #### IJEOMA, CMP #### [facility] ([id number]) [address], [address] [place], [place] [address]Bceiihcjda [Mass/Vol]1.39 mg/dLHigh0.40-1.00ProPomerene Hospitalca Hassan HospitalComment on above:Result Comment: METHOD TRACEABLE TO IDMS STANDARD Performed By: #### IJEOMA, CMP #### [facility] ([id number]) [address], [address] [place], [place] [address]IGC/1.73 sq M.predicted among non-blacks MDRD (S/P/Bld) [Vol rate/Area]54 mL/min/{1.73_m2}Low>59ProCherrington HospitalComment on above: Result Comment: Reported eGFR is based on the CKD-EPI 2020 equation that does not use a race coefficient.Performed By: #### IJEOMA, CMP #### [facility] ([id number]) [address], [address] [place], [place] [address]Lmsuhha [Mass/Vol]90 mg/nDWipqzs12-95EyeYteofwCincinnati Shriners Hospital Comment on above:Performed By: #### IJEOMA, CMP #### [facility] ([id number]) [address], [address] [place], [place] [address]Fqrbpibfr [Moles/Vol]4.4 mmol/LNormal3.5-5.0ProCherrington HospitalComment on above:Performed By: #### IJEOMA, CMP #### [facility] ([id number]) [address], [address] [place], [place] [address]Grrqhlg [Mass/Vol]5.7 g/dLLow6.0-8.0[facility] Comment on above:Performed By: #### IJEOMA, CMP #### [facility] ([id number]) [address], [address] [place], [place] [address]Zihfkh [Moles/Vol]141 mmol/CGcvatg977-416UwmYjnroq [place] HospitalComment on above:Performed By: #### CBCA, CMP #### [facility] ([id number]) [address], [address] [place], [place] [address]Whgs nitrogen [Mass/Vol]14 mg/dLNormal5-23ProCherrington HospitalComment on above:Performed By: #### CBCA, CMP #### [facility] ([id number]) [address], [address] [place], [place] [address]Bdcqahifbkwog metabolic panelon 14-24-8231Xuzrdcg [Mass/Vol]3.3 g/dL3.2 - 5.3 g/dLProInfirmary Ltac Hospital Health SystemALP [Catalytic activity/Vol]94 U/L39 - 130 U/LProMedica Health SystemALT No additional P-5'-P [Catalytic activity/Vol] 274 U/LHigh0 - 31 U/LProMedica Health SystemAnion gap [Moles/Vol]6 mmol/L5 - 15 mmol/LProMedica Health SystemAST [Catalytic activity/Vol]107 U/LHigh0 - 41 U/L [facility] SystemBilirubin [Mass/Vol]0.5 mg/dL0.3 - 1.2 mg/dLProPromedica Fostoria Community [facility] SystemCalcium [Mass/Vol]8.6 mg/dL8.5 - 10.5 mg/dLProPromedica Fostoria Community Hospital System Chloride [Moles/Vol]105 mmol/L98 - 109 mmol/[facility] SystemCO2 [Moles/Vol]30 mmol/L22 - 32 mmol/[facility] SystemCreatinine [Mass/Vol] 1.39 mg/dLHigh0.40 - 1.00 mg/dLMarymount Hospital SystemeGFR (CKD-EPI)non-race alrwnvezh72Gug- PINFPChillicothe Hospital SystemGlucose [Mass/Vol]90 mg/dL65 - 99 mg/dLMarymount Hospital SystemPotassium [Moles/Vol]4.4 mmol/L3.5 - 5.0 mmol/L [facility] SystemProtein [Mass/Vol]5.7 g/dLLow6.0 - 8.0 g/dLMarymount Hospital SystemSodium [Moles/Vol]141 mmol/L134 - 146 mmol/[facility] Urea nitrogen [Mass/Vol]14 mg/dL5 - 23 mg/dLMarymount Hospital SystemMAGNESIUMon 90-86-2866Awpiaaccf [Mass/Vol]1.5 mg/dLLow1.8-2.6[facility] Comment on above:Performed By: #### CBCA, CMP #### [facility] ([id number]) [address] [place], [place] [address]Agwsrdskjst 51-51-2497Omtqmdqio [Mass/Vol]1.5 mg/dLLow1.8 - 2.6 mg/dLAdena Pike Medical CenterMyoglobin [Mass/Vol]on 00-16-5324OZMKM MYOGLOBIN 353.4 ng/dAVdyi73.3-65.8ProCherrington HospitalComment on above:Performed By: #### CBCA, CMP #### [facility] ([id number]) [address], [address] [place], [place] [address]Mteemwbwo, serumon 35-87-8900Jouttzzns [Mass/Vol]353.4 ng/mLHigh 14.3 - 65.8 ng/mLAdena Pike Medical CenterNo Panel Informationon 11-12-2024 Interpretation and review of laboratory resultsAbnormalAdena Pike Medical Center ProMThe Surgical Hospital at SouthwoodsPHOSPHORUSon 74-82-4895Emzgpcfkd [Mass/Vol]4.4 mg/dL Normal2.4-4.9ProCherrington HospitalComment on above:Performed By: #### CBCA, CMP #### [facility] ([id number]) [address] [place], [place] [address]Aodxsehelnso 94-22-8020Oavjqnhmc [Mass/Vol]4.4 mg/dL2.4 - 4.9 mg/dLAdena Pike Medical CenterCBC AND AUTO DIFFon 34-29-4361KAAICYTM BASOPHIL0.1 X10E9/LNormal0.0-0.2PEast Liverpool City HospitalComment on above:Performed By: #### CBCA, CMP #### [facility] ([id number]) [address] [place], [place] [address]QECDUSIF NEUTROPHIL6.3 X10E9/LNormal1.5-6.6ProCherrington HospitalComment on above:Performed By: #### CBCA, CMP #### [facility] ([id number]) [address], [address] [place], [place] [address]Wrpcauxhq/100 WBC (Bld)0.6 %NormalProMercy Health St. [facility] Comment on above:Performed By: #### CBCA, CMP #### [facility] ([id number]) [address], [address] [place], [place] [address]Wxugorplstf (Bld) [#/Vol]1.0 10*3/uLHigh0.0-0.4ProMercy Health St. [facility] HospitalComment on above:Performed By: #### CBCA, CMP #### [facility] ([id number]) [address], [address] [place], [place] [address]Ozhkuxxsplh/100 WBC (Bld)10.1 %NormalProMercy Health St. [facility] Hospital Comment on above:Performed By: #### CBCA, CMP #### [facility] ([id number]) [address], [address] [place], [place] [address]Bvpzgxltcvn distribution width (RBC) [Ratio]13.7 %Normal 11.5-15.0ProMercy Health St. [facility] HospitalComment on above:Performed By: #### CBCA, CMP #### [facility] ([id number]) [address], [address] [place], [place] [address]Fvkpmdiwlx (Bld) [Volume fraction]34.3 %Axh78-65KwaSousmk [place] HospitalComment on above:Performed By: #### CBCA, CMP #### [facility] ([id number]) [address], [address] [place], [place] [address]Zbxdqpyjbj (Bld) [Mass/Vol]11.6 g/dLLow11.7-15.5PKeenan Private Hospital HospitalComment on above:Performed By: #### CBCA, CMP #### [facility] ([id number]) [address], [address] [place], [place] [address]Epcfbkdvzgn (Bld) [#/Vol]1.7 10*3/uLNormal1.0-3.5PKeenan Private Hospital HospitalComment on above:Performed By: #### CBCA, CMP #### [facility] ([id number]) [address], [address] [place], [place] [address]Ziixqqobhoc/100 WBC (Bld)17.0 %NormalThe University of [facility] Medical Centerca [facility] Comment on above:Performed By: #### CBCA, CMP #### [facility] ([id number]) [address], [address] [place], [place] [address]IDE (RBC) [Entitic mass]30.5 ssEhfofd47-01JgoZmsmpd Hassan HospitalComment on above:Performed By: #### CBCA, CMP #### [facility] ([id number]) [address], [address] [place], [place] [address]BFUH (RBC) [Mass/Vol]34.0 g/lZLhehki36-13XkuNzznef Hassan HospitalComment on above:Performed By: #### CBCA, CMP #### [facility] ([id number]) [address], [address] [place], [place] [address]TGO (RBC) [Entitic vol]90 xXWwbnyv17-065HcpBapdez Hassan HospitalComment on above:Performed By: #### CBCA, CMP #### [facility] ([id number]) [address], [address] [place], [place] [address]Itndafwgh (Bld) [#/Vol]0.8 10*3/uLNormal0-0.9ProMedica Hassan HospitalComment on above:Performed By: #### CBCA, CMP #### [facility] ([id number]) [address], [address] [place], [place] [address]Lqvwehtrv/100 WBC (Bld)8.3 %NormalThe University of [place] Medical Centerca [facility] Comment on above:Performed By: #### CBCA, CMP #### [facility] ([id number]) [address], [address] [place], [place] [address]Phhoudlljel/100 WBC (Bld)64.0 %NormalCincinnati Shriners Hospital Comment on above:Performed By: #### CBCA, CMP #### [facility] ([id number]) [address], [address] [place] [address]Elsxlppl mean volume (Bld) [Entitic vol]8.3 fLNormal7-12 [facility]ers HospitalComment on above:Performed By: #### CBCA, CMP #### [facility] ([id number]) [address], [address] [address]Tjtitbean (Bld) [#/Vol]187 10*3/pBSoiwht698-577MkxPttisv [place] HospitalComment on above:Performed By: #### CBCA, CMP #### [facility] ([id number]) [address], [address] [address]KWD COUNT3.81 X10E12/LNormal3.80-5.20[facility] Comment on above:Performed By: #### CBCA, CMP #### [facility] ([id number]) [address], [address] [address]LOG (Bld) [#/Vol]9.9 10*3/uLNormal4.0-11.0[facility]riners HospitalComment on above:Performed By: #### CBCA, CMP #### [facility] ([id number]) [address], [address] [address]IFW auto differentialon 85-31-7302Fdhwrcreu (Bld) [#/Vol]0.1 10*3/uLProMedica Health SystemBasophils/100 WBC (Bld)0.6 %[facility]aritan HospitaledicEly-Bloomenson Community Hospital SystemEosinophils (Bld) [#/Vol]1 10*3/uLHighProMedica [facility] System Eosinophils/100 WBC (Bld)10.1 %Samaritan HospitaledicEly-Bloomenson Community Hospital SystemErythrocyte distribution width (RBC) [Ratio]13.7 %11.5 - 15.0 %[facility] SystemHematocrit (Bld) [Volume fraction]34.3 %Low35 - 47 %Adena Pike Medical CenterHemoglobin (Bld) [Mass/Vol]11.6 g/dLLow11.7 - 15.5 g/dLAdena Pike Medical CenterInterpretation and review of laboratory resultsAbnormalAdena Pike Medical CenterLymphocytes (Bld) [#/Vol]1.7 10*3/uLAdena Pike Medical CenterLymphocytes/100 WBC (Bld)17 %A[facility] Medical CenterMCH (RBC) [Entitic mass]30.5 pg27 - 34 [facility] MCHC (RBC) [Mass/Vol]34 g/dL32 - 36 g/dLAdena Pike Medical CenterMCV (RBC) [Entitic vol]90 fL80 - 100 [facility] HospitalMonocytes (Bld) [#/Vol]0.8 10*3/[facility] HospitalMonocytes/100 WBC (Bld)8.3 %[facility] Medical CenterNeutrophils (Bld) [#/Vol]6.3 10*3/uLAdena Pike Medical CenterNeutrophils/100 WBC (Bld)64 %A[facility] Medical CenterPlatelet mean volume (Bld) [Entitic vol]8.3 fL7 - 12 [facility] HospitalPlatelets (Bld) [#/Vol]187 10*3/[facility]on HospitalRBC (Bld) [#/Vol]3.81 10*6/[facility]on HospitalWBC corrected for nucl RBC Auto (Bld) [#/Vol]9.9[facility] CK Totalon 52-62-4396HT [Catalytic activity/Vol]6889 U/LHigh24 - 170 U/L Adena Pike Medical CenterCK [Catalytic activity/Vol]on 59-65-2812TLE0118 U/LHigh 24-170[facility] [facility]riners HospitalComment on above:Performed By: #### CBCA, CMP #### [facility] ([id number]) [address] [place], [place] [address]HOHBQZYEXRWEO METABOLIC PANELon 18-81-5380Hnjfztt [Mass/Vol]3.3 g/dLNormal3.2-5.3ProMedProtestant Hospital HospitalComment on above:Performed By: #### CBCA, CMP #### [facility] ([id number]) [address], [address] [place], [place] [address]YRN [Catalytic activity/Vol]123 U/FYbzxxo14-429DiyYimanb [place] HospitalComment on above:Performed By: #### CBCA, CMP #### [facility] ([id number]) [address], [address] [place], [place] [address]XFV [Catalytic activity/Vol]398 U/LHigh0-31ProMedProtestant Hospital HospitalComment on above:Performed By: #### CBCA, CMP #### [facility] ([id number]) [address], [address] [place], [place] [address]Mxnkm gap [Moles/Vol]7 mmol/LNormal5-15ProMercy Health St[facility] Hospital Comment on above:Performed By: #### CBCA, CMP #### [facility] ([id number]) [address], [address] [place], [place] [address]NZV [Catalytic activity/Vol]179 U/LHigh0-41ProMedica [facility] HospitalComment on above:Performed By: #### CBCA, CMP #### [facility] ([id number]) [address], [address] [place], [place] [address]Gfnxcyrcd [Mass/Vol]0.5 mg/dLNormal0.3-1.2ProMedProtestant Hospital HospitalComment on above:Performed By: #### CBCA, CMP #### [facility] ([id number]) [address], [address] [place], [place] [address]Owlrjox [Mass/Vol]8.6 mg/dLNormal8.5-10.5ProMedProtestant Hospital HospitalComment on above:Performed By: #### CBCA, CMP #### [facility] ([id number]) [address], [address] [place], [place] [address]Ebwwqkhx [Moles/Vol]104 mmol/ZElhykg44-839WlzYghpyt [place] HospitalComment on above:Performed By: #### IJEOMA, CMP #### [facility] ([id number]) [address] [place], [place] [address]GR1 [Moles/Vol]29 mmol/MQpzwxi87-52FufHbtjwpEast [facility] City Hospital Comment on above:Performed By: #### IJEOMA, CMP #### [facility] ([id number]) [address] [place], [place] [address]Ggqhumwigv [Mass/Vol]1.44 mg/dLHigh0.40-1.00ProCherrington HospitalComment on above:Result Comment: METHOD TRACEABLE TO IDMS STANDARD Performed By: #### IJEOMA, CMP #### [facility] ([id number]) [address], [address] [place], [place] [address]TFK/1.73 sq M.predicted among non-blacks MDRD (S/P/Bld) [Vol rate/Area]52 mL/min/{1.73_m2}Low>59ProCherrington HospitalComment on above: Result Comment: Reported eGFR is based on the CKD-EPI 2020 equation that does not use a race coefficient.Performed By: #### IJEOMA, CMP #### [facility] ([id number]) [address], [address] [place], [place] [address]Hagjjaj [Mass/Vol]95 mg/zESxhikb09-11PqvYtolwrCincinnati Shriners Hospital Comment on above:Performed By: #### IJEOMA, CMP #### [facility] ([id number]) [address] [address] [place], [place] [address]Ikwrvxcql [Moles/Vol]4.3 mmol/LNormal3.5-5.0ProCherrington HospitalComment on above:Performed By: #### IJEOMA, CMP #### [facility] ([id number]) [address] [address] [place] [address]Vxtdrww [Mass/Vol]5.8 g/dLLow6.0-8.0[facility] Comment on above:Performed By: #### IJEOMA, CMP #### [facility] ([id number]) [address] [address]Xszhtd [Moles/Vol]140 mmol/JZripmr461-479NkeLuozjz [place] HospitalComment on above:Performed By: #### IJEOMA, CMP #### [facility] ([id number]) [address] [address]Vhqx nitrogen [Mass/Vol]16 mg/dLNormal5-23ProCherrington HospitalComment on above:Performed By: #### IJEOMA, CMP #### [facility] ([id number]) [address] [address]Lnypiof.ionized (Bld) [Mass/Vol]on 03-15-0616FifOuysmf Health SystemIONIZED CALCIUM4.7 mg/dLNormal4.5-5.3PEast Liverpool City HospitalComment on above:Performed By: #### IJEOMA, CMP #### [facility] ([id number]) [address] [address]Wqntqsoyzrjlx metabolic panelon 12-58-5676Uxcixyo [Mass/Vol]3.3 g/dL3.2 - 5.3 g/dLProMedica Health SystemALP [Catalytic activity/Vol]123 U/L39 - 130 U/LProMedica Health SystemALT No additional P-5'-P [Catalytic activity/Vol] 398 U/LHigh0 - 31 U/LProMedica Health SystemAnion gap [Moles/Vol]7 mmol/L5 - 15 mmol/LProMedica Health SystemAST [Catalytic activity/Vol]179 U/LHigh0 - 41 U/L Pro[facility] Health SystemBilirubin [Mass/Vol]0.5 mg/dL0.3 - 1.2 mg/dLMarymount Hospital SystemCalcium [Mass/Vol]8.6 mg/dL8.5 - 10.5 mg/dLMarymount Hospital System Chloride [Moles/Vol]104 mmol/L98 - 109 mmol/LProMedbryce hospital Health SystemCO2 [Moles/Vol]29 mmol/L22 - 32 mmol/LPrCity Hospital SystemCreatinine [Mass/Vol] 1.44 mg/dLHigh0.40 - 1.00 mg/dLAdena Pike Medical CentereGFR (CKD-EPI)non-race ddyskrhuo10Eht- PINFProMedSamaritan North Health Center SystemGlucose [Mass/Vol]95 mg/dL65 - 99 mg/dLAdena Pike Medical CenterPotassium [Moles/Vol]4.3 mmol/L3.5 - 5.0 mmol/L [facility] SystemProtein [Mass/Vol]5.8 g/dLLow6.0 - 8.0 g/dLMarymount Hospital SystemSodium [Moles/Vol]140 mmol/L134 - 146 mmol/[facility] Urea nitrogen [Mass/Vol]16 mg/dL5 - 23 mg/dLAdena Pike Medical CenterECG 12 leadon 27-35-8221KKWDCKVHPXFOPJGsbHwswwj Health SystemHolter monitor studyon 46-45-4055WMPHMPQO TRANSCRIBED RESULTSAdena Pike Medical CenterMANUALLY TRANSCRIBED RESULTSAdena Pike Medical CenterIonized calciumon 11-11-2024 Calcium.ionized (Bld) [Mass/Vol]4.7 mg/dL4.5 - 5.3 mg/dLAdena Pike Medical Center MAGNESIUMon 76-99-4543Twuaetzae [Mass/Vol]1.5 mg/dLLow1.8-2.6[facility] HospitalComment on above:Performed By: #### CBCA, CMP #### [facility] ([id number]) [address], [address] [place], [place] [address]Oxtdvdycbes 95-79-0442Alywifuck [Mass/Vol]1.5 mg/dLLow1.8 - 2.6 mg/dLAdena Pike Medical CenterMyoglobin [Mass/Vol]on 60-81-6261VNTOU MYOGLOBIN 423.2 ng/kNKmwh81.3-65.8ProCherrington HospitalComment on above:Performed By: #### CBCA, CMP #### [facility] ([id number]) [address] [place] [address], [address] [place], [place] [address]Ugrkmgcpi, serumon 48-45-2085Zcqblzvyl [Mass/Vol]423.2 ng/mLHigh 14.3 - 65.8 ng/mLAdena Pike Medical CenterNo Panel Informationon 11-11-2024 Interpretation and review of laboratory resultsAbnormalMarshfield Medical Center Rice Lake SystemInterpretation and review of laboratory resultsAbnoRiddle HospitalPHOSPHORUSon 03-66-7219Xpgalwiwu [Mass/Vol]4.1 mg/dLNormal2.4-4.9ProCherrington HospitalComment on above: Performed By: #### CBCA, CMP #### [facility] ([id number]) [address] [place] [address], [address] [place], [place] [address]Swykjdrstsds 76-16-1282Nvlhesaab [Mass/Vol]4.1 mg/dL2.4 - 4.9 mg/dLAdena Pike Medical CenterRESP PATHOGENS/PJZG-GuZ-3im 11-87-3532Hadimmsiafv pathogens DNA and RNA panel JACKSON+non-probe (Nph)SPECIMEN SOURCE NASO PHARYNX ADENOVIRUS Not detected (qualifier [...] 2 Not detected (qualifier value) NOTE The [employer] Respiratory Panel 2.1 (RP2.1) is a multiplexed [...] evaluating a patient with possible respiratory tract infection.NormalProMedica Kettering Health Behavioral Medical CenterComment on above:Performed By: #### CBCA, CMP #### [facility] ([id number]) [address] [place] [address], [address] [place], [place] [address]Vixjslawvbj pathogens DNA and RNA panel JACKSON+non-probe (Nph)on 30-85-5533Fwgrvrwzth DNA JACKSON+non-probe Ql (Nph)Not detectedNot Detected^Not DetectedAdena Pike Medical CenterB. parapertussis VB7185 DNA JACKSON+non-probe Ql (Nph)Not detectedNot Detected^Not DetectedAdena Pike Medical CenterB. pertussis toxin promoter region JACKSON+non-probe Ql (Nph)Not detectedNot Detected^Not DetectedAdena Pike Medical CenterC. pneumoniae DNA JACKSON+non-probe Ql (Nph)Not detectedNot Detected^Not DetectedAdena Pike Medical CenterFLUAV H1 2009 pand RNA JACKSON+non-probe Ql (Nph)DetectedAbnormalNot Detected^Not DetectedAdena Pike Medical CenterFLUBV RNA JACKSON+non-probe Ql (Nph)Not detectedNot Detected^Not Detected [facility] CenterHCoV 229E RNA JACKSON+non-probe Ql (Nph)Not detectedNot Detected^Not DetectedAdena Pike Medical CenterHCoV HKU1 RNA JACKSON+non-probe Ql (Nph) Not detectedNot Detected^Not DetectedAdena Pike Medical CenterHCoV NL63 RNA JACKSON+non-probe Ql (Nph)Not detectedNot Detected^Not DetectedAdena Pike Medical CenterHCoV OC43 RNA JACKSON+non-probe Ql (Nph)Not detectedNot Detected^Not Detected [facility] Medical CenterhMPV RNA JACKSON+non-probe Ql (Nph)Not detectedNot Detected^Not DetectedAdena Pike Medical CenterInterpretation and review of laboratory resultsAbnormHolzer HospitalM. pneumoniae DNA JACKSON+non-probe Ql (Nph)Not detectedNot Detected^Not DetectedAdena Pike Medical Center Parainfluenza virus 1 RNA JACKSON+non-probe Ql (Nph)Not detectedNot Detected^Not DetectedAdena Pike Medical CenterParainfluenza virus 2 RNA JACKSON+non-probe Ql (Nph) Not detectedNot Detected^Not DetectedAdena Pike Medical CenterParainfluenza virus 3 RNA JACKSON+non-probe Ql (Nph)Not detectedNot Detected^Not DetectedAdena Pike Medical CenterParainfluenza virus 4 RNA JACKSON+non-probe Ql (Nph)Not detectedNot Detected^Not DetectedAdena Pike Medical CenterRhinovirus+Enterovirus RNA JACKSON+non- probe Ql (Nph)Not detectedNot Detected^Not DetectedAdena Pike Medical CenterRSV RNA JACKSON+non-probe Ql (Nph)Not detectedNot Detected^Not DetectedUNC Health RockinghamARS-CoV-2 (COVID-19) RNA JACKSON+probe Ql (Resp)Not detectedNot Detected^Not DetectedUNC Health Rockinghampecimen source Nom (Body fld)NASO PHARYNX [facility] HospitalXR CHEST 1 VWon 56-91-7547UJ CHEST 1 VWXR CHEST 1 VW XR CHEST 1 VW IMPRESSION: Clinical Information: fever/congestion Comparison: 11/04/24. * Negative chest x-ray. Finalized by Rajendra Muro MD on 11/11/2024 4:18 PMNormalCincinnati Shriners HospitalXR Chest Single viewon 70-45-9087HYOBVOSVPACwnAxnqvt Health System Radiology Study observation (narrative)[facility] Medical CenterXR Chest Single viewOrdered By: Rajendra Muro on 00-00-8584FasZxenmeAdena Pike Medical Center Work Phone: cbc AND AUTO DIFFon 76-05-9774Ypckrfqeitg (Bld) [#/Vol]1.1 10*3/uLHigh0.0-0.4Aden[facility] Pike Medical CenterComment on above:Performed By: #### CBCA, CMP #### [facility] ([id number]) [address], [address] [address]Lwesfxiuvzt distribution width (RBC) [Ratio]13.6 %Normal 11.5-15.0Aden[facility] Pike Medical CenterComment on above:Performed By: #### CBCA, CMP #### [facility] ([id number]) [address], [address] [address]Evfaifdsha (Bld) [Volume fraction]37.4 %Jtctad73-87PuzClzvdt Health SystemComment on above:Performed By: #### CBCA, CMP #### [facility] ([id number]) [address], [address] [address]Xxoglqjdva (Bld) [Mass/Vol]12.4 g/pYHcyrpf62.7-15.5PChillicothe Hospital SystemComment on above:Performed By: #### CBCA, CMP #### [facility] ([id number]) [address], [address] [place], [place] [address]Ggtjbczsqoc (Bld) [#/Vol]1.1 10*3/uLNormal1.0-3.5PChillicothe Hospital SystemComment on above:Performed By: #### CBCA, CMP #### [facility] ([id number]) [address], [address] [place], [place] [address]ZBT (RBC) [Entitic mass]29.8 weMzfbhv11-60EdoFeusnx Health SystemComment on above:Performed By: #### CBCA, CMP #### [facility] ([id number]) [address], [address] [place], [place] [address]LRU (RBC) [Entitic vol]90 aUShvwif62-206DogIrewfg Health System Comment on above:Performed By: #### CBCA, CMP #### [facility] ([id number]) [address], [address] [place], [place] [address]Ajyduserl (Bld) [#/Vol]0.7 10*3/uLNormal0-0.9[facility] SystemComment on above:Performed By: #### CBCA, CMP #### [facility] ([id number]) [address], [address] [place], [place] [address]Wknafvuwizy (Bld) [#/Vol]7.9 10*3/uLHigh1.5-6.6[facility] SystemComment on above:Performed By: #### CBCA, CMP #### [facility] ([id number]) [address], [address] [place], [place] [address]Xzussdrh mean volume (Bld) [Entitic vol]8.1 fLNormal7-12 ProMRed Lake [facility] Services Hospital SystemComment on above:Performed By: #### CBCA, CMP #### [facility] ([id number]) [address], [address] [place], [place] [address]Isomdbybs (Bld) [#/Vol]195 10*3/oMDoxbge550-240TvpXhqfqf Health SystemComment on above:Performed By: #### CBCA, CMP #### [facility] ([id number]) [address], [address] [place], [place] [address]Ixsm form neutrophils/100 WBC (Bld)1.0 %[facility] - DublinComment on above:Performed By: #### CBCA, CMP #### [facility] ([id number]) [address], [address] [place], [place] [address]Yrlfswkwuai/100 WBC (Bld)10.0 %[facility] [facility] [place] Comment on above:Performed By: #### CBCA, CMP #### [facility] ([id number]) [address], [address] [place], [place] [address]Lhgyqjfypdh/100 WBC (Bld)10.0 %[facility] [place] Comment on above:Performed By: #### CBCA, CMP #### [facility] ([id number]) [address], [address] [place], [place] [address]HHIT (RBC) [Mass/Vol]33.0 g/xTIvoyvb33-47GphHxtylzCincinnati Shriners HospitalComment on above:Performed By: #### CBCA, CMP #### [facility] ([id number]) [address], [address] [place], [place] [address]Ojyrvdbbkgwxzq/100 WBC (Bld)2.0 %NormalCincinnati Shriners Hospital Comment on above:Performed By: #### CBCA, CMP #### [facility] ([id number]) [address], [address] [place], [place] [address]Dbwstvabg/100 WBC (Bld)6.0 %NormalCincinnati Shriners Hospital Comment on above:Performed By: #### CBCA, CMP #### [facility] ([id number]) [address], [address] [place], [place] [address]GHOGQQBXU8.0 %NormalProPomerene Hospitalca Gold Beach HospitalComment on above: Performed By: #### CBCA, CMP #### [facility] ([id number]) [address], [address] [place], [place] [address]YHR COUNT4.15 X10E12/LNormal3.80-5.20ProMer[facility] Health [facility] Comment on above:Performed By: #### CBCA, CMP #### [facility] ([id number]) [address], [address] [place], [place] [address]TEO morphology finding Nom (Bld)NORMALNormalProMercy Health St. [facility] HospitalComment on above:Performed By: #### CBCA, CMP #### [facility] ([id number]) [address], [address] [place], [place] [address]CLG MOJACEHMLS59.0 %NormalProMercy Health St. [facility] HospitalComment on above:Performed By: #### CBCA, CMP #### [facility] ([id number]) [address], [address] [place], [place] [address]BBY (Bld) [#/Vol]11.3 10*3/uLHigh4.0-11.0ProCherrington HospitalComment on above:Performed By: #### CBCA, CMP #### [facility] ([id number]) [address], [address] [place], [place] [address]SZF auto differentialon 99-22-3931Hjfq form neutrophils/100 WBC (Bld)1 %[facility] SystemEosinophils/100 WBC (Bld)10 %ProMedicEly-[facility]omenson Community Hospital SystemInterpretation and review of laboratory resultsAbnormalProPromedica Fostoria Community Hospital SystemLymphocytes/100 WBC (Bld)10 %[facility] Medical CenterMCHC (RBC) [Mass/Vol] 33 g/dL32 - 36 g/dLProLutheran HospitalMetamyelocytes/100 WBC (Bld)2 % [facility] SystemMonocytes/100 WBC (Bld)6 %[facility] Myelocytes/100 WBC (Bld)3 %[facility] Medical CenterPolymorphonuclear cells/100 WBC (Bld)NORMALAdena Pike Medical CenterRBC (Bld) [#/Vol]4.15 10*6/uLUNC Health Rockinghamegmented neutrophils/100 WBC (Bld)68 %[facility] Medical CenterWBC corrected for nucl RBC Auto (Bld) [#/Vol]11.3HighSouthwood Psychiatric HospitalCK Totalon 94-69-6640SM [Catalytic activity/Vol][address] U/L High24 - 170 U/LPrMercy Health St. [facility] [Catalytic activity/Vol]on 11-10-2024 Interpretation and review of laboratory resultsAbnormalSouthwood Psychiatric HospitalCPK16525 U/ZXygm85-483McbPryvvjCincinnati Shriners HospitalComment on above:Performed By: #### CBCA, CMP #### [facility] ([id number]) [address], [address] [place], [place] [address]VKSLACMPYNXZH METABOLIC PANELon 24-37-0495Oemfrlk [Mass/Vol]3.7 g/dLNormal3.2-5.3PNationwide Children's HospitalComment on above:Performed By: #### CBCA, CMP #### [facility] ([id number]) [address], [address] [place], [place] [address]QLD [Catalytic activity/Vol]155 U/YQdjf85-328EruKvcxtmAdena Pike Medical CenterComment on above:Performed By: #### CBCA, CMP #### [facility] ([id number]) [address], [address] [place], [place] [address]Wzbxt gap [Moles/Vol]7 mmol/LNormal5-15[facility] Comment on above:Performed By: #### CBCA, CMP #### [facility] ([id number]) [address], [address] [place], [place] [address]DUZ [Catalytic activity/Vol]389 U/LHigh0-41Mary[facility] SystemComment on above:Performed By: #### CBCA, CMP #### [facility] ([id number]) [address], [address] [place], [place] [address]Txjieyxug [Mass/Vol]0.8 mg/dLNormal0.3-1.2PChillicothe Hospital SystemComment on above:Performed By: #### CBCA, CMP #### [facility] ([id number]) [address], [address] [place], [place] [address]Gvzbvpp [Mass/Vol]8.5 mg/dLNormal8.5-10.5PChillicothe Hospital System Comment on above:Performed By: #### CBCA, CMP #### [facility] ([id number]) [address], [address] [place], [place] [address]Rxdlfhsr [Moles/Vol]101 mmol/YYjnvny03-562VfcHyisdl Health SystemComment on above:Performed By: #### CBCA, CMP #### [facility] ([id number]) [address], [address] [place], [place] [address]GG8 [Moles/Vol]31 mmol/ZJackfp56-60TkgYhtddlNationwide Children's Hospital Comment on above:Performed By: #### CBCA, CMP #### [facility] ([id number]) [address], [address] [place], [place] [address]Hledywkvfk [Mass/Vol]1.48 mg/dLHigh0.40-1.00Marymount Hospital SystemComment on above:Result Comment: METHOD TRACEABLE TO IDMS STANDARD Performed By: #### CBCA, CMP #### [facility] ([id number]) [address], [address] [place], [place] [address]Wgxyoms [Mass/Vol]92 mg/bPBrpfnf55-67NqnIpanmbAdena Pike Medical Center Comment on above:Performed By: #### CBCA, CMP #### [facility] ([id number]) [address], [address] [place], [place] [address]Tikuqfrbd [Moles/Vol]4.2 mmol/LNormal3.5-5.0A[facility] Medical CenterComment on above:Performed By: #### IJEOMA, CMP #### [facility] ([id number]) [address] [address]Gfplkmn [Mass/Vol]6.3 g/dLNormal6.0-8.0[facility] Comment on above:Performed By: #### CBCSusie, CMP #### [facility] ([id number]) [address] [address]Tbtfzz [Moles/Vol]139 mmol/OHoqxjb082-491DniDojjje Health System Comment on above:Performed By: #### IJEOMA, CMP #### [facility] ([id number]) [address] [address]Iuhm nitrogen [Mass/Vol]16 mg/dLNormal5-23Marymount Hospital SystemComment on above:Performed By: #### IJEOMA, CMP #### [facility] ([id number]) [address] [address]ZXW [Catalytic activity/Vol]646 U/LHigh0-31ProMedica Kettering Health Behavioral Medical CenterComment on above:Performed By: #### CBCA, CMP #### [facility] ([id number]) [address] [address]SBR/1.73 sq M.predicted among non-blacks MDRD (S/P/Bld) [Vol rate/Area]50 mL/min/{1.73_m2}Low>59ProCherrington HospitalComment on above: Result Comment: Reported eGFR is based on the CKD-EPI 2020 equation that does not use a race coefficient.Performed By: #### CBCA, CMP #### [facility] ([id number]) [address] [address]Xmedbbo.ionized (Bld) [Mass/Vol]on 89-35-7014ExpJmzmanAdena Pike Medical CenterIONIZED CALCIUM4.6 mg/dLNormal4.5-5.3PEast Liverpool City HospitalComment on above:Performed By: #### CBCA, CMP #### [facility] ([id number]) [address], [address] [place], [place] [address]Cwkruatvvlbbp metabolic panelon 61-46-9196QTG No additional P-5'-P [Catalytic activity/Vol]646 U/LHigh0 - 31 U/LPrKnox Community HospitaleGFR (CKD-EPI)non-race lspntbfbn80Gzu- PINAshtabula County Medical Center SystemInterpretation and review of laboratory resultsAbnoAtrium Health UnionIonized calciumon 80-90-0405Ydvsdvs.ionized (Bld) [Mass/Vol]4.6 mg/dL4.5 - 5.3 mg/dLAdena Pike Medical CenterLaboratory - Chemistry and Chemistry - challengeon 11-10-2024 Magnesium [Mass/Vol]1.9 mg/dLNormal1.8-2.6A[facility]ike Medical CenterComment on above:Performed By: #### CBCA, CMP #### [facility] ([id number]) [address] [facility], [address] [address]Lcoooimhd [Mass/Vol]4.3 mg/dLNormal2.4-4.9A[facility] Medical CenterComment on above:Performed By: #### CBCA, CMP #### [facility] ([id number]) [address] [place] [address], [address] [place], [place] [address]Wpdqpcngi [Mass/Vol]on 81-57-5553Tublatxbjgxzoi and review of laboratory resultsAbSt. Francis Medical CenterERUM HGTWFRFVT1022.9 ng/gJFsjs83.3-65.8C[place] Shriners HospitalComment on above: Performed By: #### CBCA, CMP #### [facility] ([id number]) [address] [facility] [facility], [address] [place], [place] [address]Efsvjsina, serumon 96-44-1202Gwsldujvf [Mass/Vol]1008.9 ng/mL High14.3 - 65.8 ng/mLAdena Pike Medical CenterNo Panel Informationon 11-10-2024 ProMedicBucyrus Community HospitalBILIRUBIN,DIRECTon 65-99-8246Suqxbbfpk.direct [Mass/Vol] 0.9 mg/dLHigh0.0-0.4C[place] Shriners HospitalComment on above:Performed By: #### CBCA, CMP, 25619-2, 26432-5, TSHR, 94147-7, 2777-1, 2639-3, 2157-6, 3024-7 #### [facility] ([id number]) [address] [place] [address], [address] [place], [place] [address]Gppyylesz, directon 54-13-6291Zetooxmix.direct [Mass/Vol]0.9 mg/dLHigh0.0 - 0.4 mg/dLProLutheran HospitalBilirubin.direct [Mass/Vol]on 48-30-9665Bqztajrluqirca and review of laboratory resultsAbnormalProLutheran HospitalProLutheran HospitalCBC AND AUTO DIFFon 40-32-2710JUOZGYBI BASOPHIL0.0 X10E9/LNormal0.0-0.2PEast Liverpool City HospitalComment on above: Performed By: #### CBCA, CMP, 78869-6, 50799-5, TSHR, 29433-2, 2777-1, 2639-3, 2157-6, 3024-7 #### [facility] ([id number]) [address] [place] [address], [address] [place], [place] [address]QHKHTMKH NEUTROPHIL8.0 X10E9/LHigh1.5-6.6C[place] Shriners HospitalComment on above:Performed By: #### CBCA, CMP, 17577-5, 11574-4, TSHR, 24702-3, 2777-1, 2639-3, 2157-6, 3024-7 #### [facility] ([id number]) [address] [place], [place] [address]Omldleedu/100 WBC (Bld)0.2 %NormalCincinnati Shriners Hospital Comment on above:Performed By: #### CBCA, CMP, 27656-7, 38036-8, TSHR, 37034-2, 2777-1, 2639-3, 2157-6, 3024-7 #### [facility] ([id number]) [address] [address] [place], [place] [address]Shhdomlkdqb (Bld) [#/Vol]0.2 10*3/uLNormal0.0-0.4ProCherrington HospitalComment on above:Performed By: #### CBCA, CMP, 14297-4, 16075-8, TSHR, 75085-0, 2777-1, 2639-3, 2157-6, 3024-7 #### [facility] ([id number]) [address] [place], [place] [address]Cdzflaplgrg/100 WBC (Bld)2.0 %NormalCincinnati Shriners Hospital Comment on above:Performed By: #### CBCA, CMP, 62121-6, 77877-4, TSHR, 85646-9, 2777-1, 2639-3, 2157-6, 3024-7 #### [facility] ([id number]) [address] [address] [place], [place] [address]Teqklqseguy distribution width (RBC) [Ratio]13.4 %Normal 11.5-15.0ProCherrington HospitalComment on above:Performed By: #### CBCA, CMP, 30343-8, 29578-0, TSHR, 22339-2, 2777-1, 2639-3, 2157-6, 3024-7 #### [facility] ([id number]) [address] [address] [place], [place] [address]Uwbnorgiqe (Bld) [Volume fraction]34.5 %Oyk55-42EyjYhhgwe [place] HospitalComment on above:Performed By: #### CBCA, CMP, 53764-7, 72603-6, TSHR, 94046-5, 2777-1, 2639-3, 2157-6, 3024-7 #### [facility] ([id number]) [address], [address] [place], [place] [address]Koqfiqhbhd (Bld) [Mass/Vol]12.0 g/cYEgnanf62.7-15.5ProMedAdena Regional Medical CenterComment on above:Performed By: #### CBCA, CMP, 49663-8, 57921-1, TSHR, 98184-2, 2777-1, 2639-3, 2157-6, 3024-7 #### [facility] ([id number]) [address], [address] [place], [place] [address]Fgbthhijahq (Bld) [#/Vol]1.3 10*3/uLNormal1.0-3.5PEast Liverpool City HospitalComment on above:Performed By: #### CBCA, CMP, 70313-3, 32724-1, TSHR, 54210-0, 2777-1, 2639-3, 2157-6, 3024-7 #### [facility] ([id number]) [address], [address] [place], [place] [address]Sbfiojwvxyt/100 WBC (Bld)12.7 %NormalProMercy Health St. [facility] Comment on above:Performed By: #### CBCA, CMP, 65782-0, 72601-7, TSHR, 62556-5, 2777-1, 2639-3, 2157-6, 3024-7 #### [facility] ([id number]) [address], [address] [place], [place] [address]GEB (RBC) [Entitic mass]31.3 fqWyrtso13-56YrjKhlbff [place] HospitalComment on above:Performed By: #### CBCA, CMP, 40887-2, 59815-7, TSHR, 55667-8, 2777-1, 2639-3, 2157-6, 3024-7 #### [facility] ([id number]) [address] [facility], [address] [place], [place] [address]HFXV (RBC) [Mass/Vol]34.8 g/eRNojdrg08-05XleQfborw [place] HospitalComment on above:Performed By: #### CBCA, CMP, 35138-6, 77362-1, TSHR, 97270-3, 2777-1, 2639-3, 2157-6, 3024-7 #### [facility] ([id number]) [address] [facility], [address] [place], [place] [address]EQM (RBC) [Entitic vol]90 qKLuefez31-336DkgIstgrb [place] HospitalComment on above:Performed By: #### CBCA, CMP, 77026-5, 80982-3, TSHR, 67723-3, 2777-1, 2639-3, 2157-6, 3024-7 #### [facility] ([id number]) [address] [facility], [address] [place], [place] [address]Vpfcvnpep (Bld) [#/Vol]0.8 10*3/uLNormal0-0.9ProCherrington HospitalComment on above:Performed By: #### CBCA, CMP, 74390-1, 44450-1, TSHR, 58089-8, 2777-1, 2639-3, 2157-6, 3024-7 #### [facility] ([id number]) [address] [place], [place] [address]Vskussfyp/100 WBC (Bld)7.7 %NormalProCherrington Hospital Comment on above:Performed By: #### CBCA, CMP, 27773-4, 35353-9, TSHR, 08372-4, 2777-1, 2639-3, 2157-6, 3024-7 #### [facility] ([id number]) [address], [address] [place], [place] [address]Ksspzvororj/100 WBC (Bld)77.4 %NormalCincinnati Shriners Hospital Comment on above:Performed By: #### CBCA, CMP, 47049-4, 14617-0, TSHR, 29765-3, 2777-1, 2639-3, 2157-6, 3023-7 #### [facility] ([id number]) [address], [address] [place], [place] [address]Vgfgcyeh mean volume (Bld) [Entitic vol]8.2 fLNormal7-12 [place] Shriners HospitalComment on above:Performed By: #### CBCA, CMP, 38446-1, 99611-8, TSHR, 18495-2, 2777-1, 2639-3, 2157-6, 3023- #### [facility] ([id number]) [address], [address] [place], [place] [address]Hkqummyov (Bld) [#/Vol]210 10*3/zCKavlzj308-625SzfGeiwxnCincinnati Shriners HospitalComment on above:Performed By: #### CBCA, CMP, 39255-4, 17303-1, TSHR, 36253-7, 2777-1, 2639-3, 2157-6, 3023- #### [facility] ([id number]) [address], [address] [place], [place] [address]ITG COUNT3.83 X10E12/LNormal3.80-5.20[facility] Comment on above:Performed By: #### CBCA, CMP, 52331-5, 67449-8, TSHR, 22607-7, 2777-1, 2639-3, 2157-6, 302-7 #### [facility] ([id number]) [address], [address] [place], [place] [address]NAL (Bld) [#/Vol]10.4 10*3/uLNormal4.0-11.0C[place] Shriners HospitalComment on above:Performed By: #### CBCA, CMP, 47977-7, 82328-7, TSHR, 93598-6, 2777-1, 2639-3, 2157-6, 3024-7 #### [facility] ([id number]) [address] [place], [place] [address]VBX auto differentialon 84-27-4793Qtyttypfc (Bld) [#/Vol]0 10*3/[facility]righton HospitalBasophils/100 WBC (Bld)0.2 %[facility] Medical CenterEosinophils (Bld) [#/Vol]0.2 10*3/uLAdena Pike Medical CenterEosinophils/100 WBC (Bld)2 %[facility] Medical CenterErythrocyte distribution width (RBC) [Ratio] 13.4 %11.5 - 15.0 %[facility] Medical CenterHematocrit (Bld) [Volume fraction]34.5 %Low35 - 47 %[facility] Medical CenterHemoglobin (Bld) [Mass/Vol]12 g/dL11.7 - 15.5 g/dLAdena Pike Medical CenterInterpretation and review of laboratory results AbnormalAdena Pike Medical CenterLymphocytes (Bld) [#/Vol]1.3 10*3/uLAdena Pike Medical CenterLymphocytes/100 WBC (Bld)12.7 %[facility] Medical CenterMCH (RBC) [Entitic mass]31.3 pg27 - 34 [facility] SystemMCHC (RBC) [Mass/Vol]34.8 g/dL32 - 36 g/dLAdena Pike Medical CenterMCV (RBC) [Entitic vol]90 fL80 - 100 fL [facility] Medical CenterMonocytes (Bld) [#/Vol]0.8 10*3/uLAdena Pike Medical Center Monocytes/100 WBC (Bld)7.7 %[facility] Medical CenterNeutrophils (Bld) [#/Vol]8 10*3/uLPeaceHealth St. John Medical Center SystemNeutrophils/100 WBC (Bld)77.4 %ProMRed Lake Indian [facility] Hospital SystemPlatelet mean volume (Bld) [Entitic vol]8.2 fL7 - 12 fLPChillicothe Hospital SystemPlatelets (Bld) [#/Vol]210 10*3/uLMarymount Hospital SystemRBC (Bld) [#/Vol]3.83 10*6/Brighton HospitalWBC corrected for nucl RBC Auto (Bld) [#/Vol]10.4[facility] Totalon 75-64-7544TY [Catalytic activity/Vol]06728 U/LHigh24 - 170 U/LProMedLakeHealth TriPoint Medical Center [Catalytic activity/Vol]on 78-34-7179OKS17574 U/AMfwu14-902ElaGouhxyCincinnati Shriners HospitalComment on above:Performed By: #### CBCA, CMP, 89752-9, 26145-7, TSHR, 04034-3, 2777-1, 2639-3, 2157-6, 3024-7 #### [facility] ([id number]) [address] [facility], [address] [place], [place] [address]MTDCXFXHFPHZX METABOLIC PANELon 54-43-4795Oqsxwlh [Mass/Vol]3.7 g/dLNormal3.2-5.3PEast Liverpool City HospitalComment on above:Performed By: #### CBCA, CMP, 74216-8, 28843-5, TSHR, 17481-7, 2777-1, 2639-3, 2157-6, 3024-7 #### [facility] ([id number]) [address] [facility] [address] [facility] [place], [place] [address]SBQ [Catalytic activity/Vol]143 U/COdzd58-719AfxXwjqynCherrington HospitalComment on above:Performed By: #### CBCA, CMP, 82404-4, 29603-2, TSHR, 69164-5, 2777-1, 2639-3, 2157-6, 3024-7 #### [facility] ([id number]) [address], [address] [place], [place] [address]ZOS [Catalytic activity/Vol]838 U/LHigh0-31PEast Liverpool City HospitalComment on above:Performed By: #### CBCA, CMP, 71222-4, 20243-2, TSHR, 43070-2, 2777-1, 2639-3, 2157-6, 3024-7 #### [facility] ([id number]) [address], [address] [place], [place] [address]Qxmma gap [Moles/Vol]9 mmol/LNormal5-15ProCherrington Hospital Comment on above:Performed By: #### CBCA, CMP, 11893-1, 55241-5, TSHR, 53564-8, 2777-1, 2639-3, 2157-6, 3024-7 #### [facility] ([id number]) [address], [address] [place], [place] [address]AJL [Catalytic activity/Vol]764 U/LHigh0-41ProCherrington HospitalComment on above:Performed By: #### CBCA, CMP, 29913-5, 36574-5, TSHR, 83244-4, 2777-1, 2639-3, 2157-6, 3024-7 #### [facility] ([id number]) [address], [address] [place], [place] [address]Gvvtowvng [Mass/Vol]1.6 mg/dLHigh0.3-1.2PEast Liverpool City HospitalComment on above:Performed By: #### CBCA, CMP, 46235-2, 11781-2, TSHR, 79330-2, 2777-1, 2639-3, 2157-6, 3024-7 #### [facility] ([id number]) [address], [address] [place], [place] [address]Hyodhsq [Mass/Vol]8.8 mg/dLNormal8.5-10.5PEast Liverpool City HospitalComment on above:Performed By: #### CBCA, CMP, 23786-9, 36193-9, TSHR, 74276-6, 2777-1, 2639-3, 2157-6, 3024-7 #### [facility] ([id number]) [address], [address] [place], [place] [address]Rsforqof [Moles/Vol]101 mmol/ILkedei69-227GhwFsrkfl [place] HospitalComment on above:Performed By: #### CBCA, CMP, 00043-2, 35571-5, TSHR, 68909-4, 2777-1, 2639-3, 2157-6, 3024-7 #### [facility] ([id number]) [address] [place], [place] [address]PX8 [Moles/Vol]30 mmol/NMdfghc58-35AkvYxfjwrEast Liverpool City Hospital Comment on above:Performed By: #### CBCA, CMP, 00252-2, 45751-9, TSHR, 48153-1, 2777-1, 2639-3, 2157-6, 3024-7 #### [facility] ([id number]) [address], [address] [place], [place] [address]Gplsdwjuxw [Mass/Vol]1.58 mg/dLHigh0.40-1.00ProCherrington HospitalComment on above:Result Comment: METHOD TRACEABLE TO IDMS STANDARD Performed By: #### CBCA, CMP, 81667-8, 76180-6, TSHR, 83948-6, 2777-1, 2639-3, 2157-6, 3024-7 #### [facility] ([id number]) [address], [address] [place], [place] [address]RSV/1.73 sq M.predicted among non-blacks MDRD (S/P/Bld) [Vol rate/Area]47 mL/min/{1.73_m2}Low>59ProCherrington HospitalComment on above: Result Comment: Reported eGFR is based on the CKD-EPI 2020 equation that does not use a race coefficient.Performed By: #### IJEOMA, SYED, 13105-8, 25344-1, TSHR, 98025-4, 2777-1, 2639-3, 2157-6, 3024-7 #### [facility] ([id number]) [address], [address] [place], [place] [address]Yerxfsv [Mass/Vol]90 mg/uRDrsfde03-48BlmHbxtzk [facility] Comment on above:Performed By: #### IJEOMA, SYED, 53927-1, 37881-8, TSHR, 69552-0, 2777-1, 2639-3, 2157-6, 302-7 #### [facility] ([id number]) [address], [address] [place], [place] [address]Tukjrxsqb [Moles/Vol]4.7 mmol/LNormal3.5-5.0ProCherrington HospitalComment on above:Performed By: #### IJEOMA, SYED, 58167-9, 79847-7, TSHR, 40031-1, 2777-1, 2639-3, 2157-6, 302-7 #### [facility] ([id number]) [address], [address] [place], [place] [address]Bseyhsp [Mass/Vol]6.0 g/dLNormal6.0-8.0[facility] Comment on above:Performed By: #### IJEOMA, SYED, 30472-5, 54742-0, TSHR, 76898-0, 2777-1, 2639-3, 2157-6, 3024-7 #### [facility] ([id number]) [address], [address] [place], [place] [address]Wfnuyz [Moles/Vol]140 mmol/PXgiohw965-561VmoFvcbjb [place] HospitalComment on above:Performed By: #### ANISHA, CMP, 91366-5, 58668-6, TSHR, 58422-9, 2777-1, 2639-3, 2157-6, 3024-7 #### [facility] ([id number]) [address] [place] [address], [address] [place], [place] [address]Qbsr nitrogen [Mass/Vol]22 mg/dLNormal5-23ProCherrington HospitalComment on above:Performed By: #### CBCA, CMP, 57646-5, 73504-8, TSHR, 96910-3, 2777-1, 2639-3, 2157-6, 3024-7 #### [facility] ([id number]) [address] [place] [address], [address] [place] [address]Yfawoyu.ionized (Bld) [Mass/Vol]on 35-98-4666SxfXttxzgLutheran HospitalIONIZED CALCIUM4.5 mg/dLNormal4.5-5.3PEast [facility] City HospitalComment on above:Performed By: #### CBCA, CMP, 40856-5, 78635-9, TSHR, 83237-0, 2777-1, 2639-3, 2157-6, 3024-7 #### [facility] ([id number]) [address] [place] [address], [address] [address]Aobglssbjxrcc metabolic panelon 56-19-8391Xxsozsx [Mass/Vol]3.7 g/dL3.2 - 5.3 g/dLProMedica Health SystemALP [Catalytic activity/Vol]143 U/LHigh 39 - 130 U/LProMedica Health SystemALT No additional P-5'-P [Catalytic activity/Vol]838 U/LHigh0 - 31 U/LProMedica Health SystemAnion gap [Moles/Vol]9 mmol/L5 - 15 mmol/LProMedica Health SystemAST [Catalytic activity/Vol]764 U/L High0 - 41 U/LProMedica Health SystemBilirubin [Mass/Vol]1.6 mg/dLHigh0.3 - 1.2 mg/dLProMedica Health SystemCalcium [Mass/Vol]8.8 mg/dL8.5 - 10.5 mg/dLProPromedica Fostoria [facility] SystemChloride [Moles/Vol]101 mmol/L98 - 109 mmol/LProMedica Health SystemCO2 [Moles/Vol]30 mmol/L22 - 32 mmol/LPrLongs Peak Hospital Health SystemCreatinine [Mass/Vol]1.58 mg/dLHigh0.40 - 1.00 mg/dLAdena Pike Medical CentereGFR (CKD-EPI)non-race mbdtbelib07Vzz- PINFProMedSamaritan North Health Center SystemGlucose [Mass/Vol] 90 mg/dL65 - 99 mg/dLMarymount Hospital SystemPotassium [Moles/Vol]4.7 mmol/L3.5 - 5.0 mmol/LProMedica Health SystemProtein [Mass/Vol]6 g/dL6.0 - 8.0 g/dL [facility] SystemSodium [Moles/Vol]140 mmol/L134 - 146 mmol/[facility] SystemUrea nitrogen [Mass/Vol]22 mg/dL5 - 23 mg/dLAdena Pike Medical Center Enterovirus PCR, Karri 13-73-4382Hknutdeuzvq PCRNegativeNegativeProPromedica Fostoria Community Hospital SystemProPromedica F[facility] Hospital SystemIonized calciumon 55-06-0655Biqsbki.ionized (Bld) [Mass/Vol]4.5 mg/dL4.5 - 5.3 mg/dLAdena Pike Medical CenterIonized magnesiumon 85-00-7304Xrcsznlkx Ionized ISE (Bld) [Moles/Vol]0.74 mmol/L0.45 - 0.74 mmol/L [facility] Medical CenterMagnesium Ionized ISE (Bld) [Moles/Vol]0.45 mmol/L0.45 - 0.74 mmol/[facility] SystemMAGNESIUMon 31-41-3348Kgokveqfu [Mass/Vol]1.7 mg/dLLow1.8-2.6[facility] Shriners HospitalComment on above:Performed By: #### CBCA, CMP, 69143-3, 04528-4, TSHR, 30497-8, 2777-1, 2639-3, 2157-6, 3024-7 #### [facility] ([id number]) [address], [address] [place], [place] [address]Szdljdmvifa 43-21-5141Dausyqgey [Mass/Vol]1.7 mg/dLLow1.8 - 2.6 mg/dLProPromedica Fostoria Community Hospital SystemMagnesium Ionized ISE (Bld) [Moles/Vol]on 11-09-2024 [facility] SystemMagnesium [Moles/Vol]0.74 mmol/LNormal0.45-0.74ProMercy Health St. [facility] HospitalComment on above:Result Comment: NEW REFERENCE RANGEPerformed By: #### CBCA, CMP, 63969-0, 27631-0, TSHR, 37745-7, 2777-1, 2639-3, 2157-6, 3024-7 #### [facility] ([id number]) [address] [place] [address], [address] [place], [place] [address]CqsLvqszo Health SystemMagnesium [Moles/Vol]0.45 mmol/LNormal 0.45-0.74ProCherrington HospitalComment on above:Result Comment: NEW REFERENCE RANGEPerformed By: #### CBCA, CMP, 19459-0, 32404-4, TSHR, 31671-2, 2777-1, 2639-3, 2157-6, 3024-7 #### [facility] ([id number]) [address], [address] [place], [place] [address]Blebhjqgg [Mass/Vol]on 11-73-6296JTBLB OEUIYNOJE0510.9 ng/mLHigh 14.3-65.8ProCherrington HospitalComment on above:Performed By: #### CBCA, CMP, 88088-8, 27897-6, TSHR, 90344-9, 2777-1, 2639-3, 2157-6, 3024-7 #### [facility] ([id number]) [address], [address] [place], [place] [address]Kqinxhgjn, serumon 33-11-3552Znogabpiy [Mass/Vol]2894.9 ng/mL High14.3 - 65.8 ng/mLProInfirmary Ltac Hospital Health SystemNo Panel Informationon 11-09-2024 Interpretation and review of laboratory resultsAbnormalSouthwood Psychiatric HospitalPHOSPHORUSon 15-67-6365Awwsevsha [Mass/Vol]4.1 mg/dL Normal2.4-4.9ProCherrington HospitalComment on above:Performed By: #### CBCA, CMP, 62486-3, 72238-4, TSHR, 96537-6, 2777-1, 2639-3, 2157-6, 3024-7 #### [facility] ([id number]) [address], [address] [place], [place] [address]NXCWGATMGje 67-01-7562Upgxnqpbw [Moles/Vol]4.1 mmol/LNormal 3.5-5.0ProCherrington HospitalComment on above:Performed By: #### IJEOMA, CMP #### [facility] ([id number]) [address], [address] [place], [place] [address]Kppeqckinbxf 56-91-6442Aesdqqvts [Mass/Vol]4.1 mg/dL2.4 - 4.9 mg/dLAdena Pike Medical CenterPotassiumon 97-04-7455Gqcjhfxzb [Moles/Vol]4.1 mmol/L3.5 - 5.0 mmol/LProMedBlanchard Valley Health System Blanchard Valley HospitalPotassium [Moles/Vol]on 11-09-2024 [facility] CenterBASIC METABOLIC PANLon 92-61-7094Satmu gap [Moles/Vol]5 mmol/LNormal5-15ProCherrington HospitalComment on above:Performed By: #### CBCA, CMP, 59003-3, 45375-2, TSHR, 97910-1, 2777-1, 2639-3, 2157-6, 3024-7 #### [facility] ([id number]) [address], [address] [place], [place] [address]Cfvynmh [Mass/Vol]7.7 mg/dLLow8.5-10.5PEast [facility] Comment on above:Performed By: #### CBCA, CMP, 49263-2, 91408-9, TSHR, 82501-3, 2777-1, 2639-3, 2157-6, 3024-7 #### [facility] ([id number]) [address], [address] [place], [place] [address]Gfltjokk [Moles/Vol]108 mmol/UGhkhha34-381BqrFnzcsa [place]edo HospitalComment on above:Performed By: #### CBCA, CMP, 02088-5, 18112-2, TSHR, 97078-5, 2777-1, 2639-3, 2157-6, 3024-7 #### [facility] ([id number]) [address], [address] [place], [place] [address]HR6 [Moles/Vol]28 mmol/FRxacmj76-49UsrFvkfcwEast [facility] Hospital Comment on above:Performed By: #### ANISHA, CMP, 04475-7, 96961-4, TSHR, 27119-0, 2777-1, 2639-3, 2157-6, 3024-7 #### [facility] ([id number]) [address], [address] [place], [place] [address]Jmocisixzv [Mass/Vol]1.51 mg/dLHigh0.40-1.00ProCherrington HospitalComment on above:Result Comment: METHOD TRACEABLE TO IDMS STANDARD Performed By: #### ANISHA, CMP, 62211-4, 18584-4, TSHR, 51596-8, 2777-1, 2639-3, 2157-6, 3024-7 #### [facility] ([id number]) [address], [address] [place], [place] [address]CTG/1.73 sq M.predicted among non-blacks MDRD (S/P/Bld) [Vol rate/Area]49 mL/min/{1.73_m2}Low>59ProCherrington HospitalComment on above: Result Comment: Reported eGFR is based on the CKD-EPI 2020 equation that does not use a race coefficient.Performed By: #### CBCA, CMP, 83977-6, 22614-3, TSHR, 76325-6, 2777-1, 2639-3, 2157-6, 3024-7 #### [facility] ([id number]) [address], [address] [place], [place] [address]Mjgazry [Mass/Vol]77 mg/vFTpmrsd89-10HirOphlfp [facility] Comment on above:Performed By: #### CBCA, CMP, 71140-5, 21584-9, TSHR, 02290-1, 2777-1, 2639-3, 2157-6, 3024-7 #### [facility] ([id number]) [address], [address] [place], [place] [address]Eyzgyykfe [Moles/Vol]3.3 mmol/LLow3.5-5.0ProCherrington HospitalComment on above:Performed By: #### CBCA, CMP, 54060-2, 10938-3, TSHR, 30489-2, 2777-1, 2639-3, 2157-6, 3024-7 #### [facility] ([id number]) [address], [address] [place], [place] [address]Oanvbs [Moles/Vol]141 mmol/IGcefkm876-225OtaAnsowq [place] HospitalComment on above:Performed By: #### CBCA, CMP, 41077-2, 92764-0, TSHR, 52291-4, 2777-1, 2639-3, 2157-6, 3024-7 #### [facility] ([id number]) [address], [address] [place], [place] [address]Pgzg nitrogen [Mass/Vol]24 mg/dLHigh5-23ProCherrington HospitalComment on above:Performed By: #### CBCA, CMP, 55685-9, 68421-9, TSHR, 85436-4, 2777-1, 2639-3, 2157-6, 3024-7 #### [facility] ([id number]) [address] [place], [place] [address]Cvdou Metabolic Panelon 41-96-7918Uszue gap [Moles/Vol]5 mmol/L5 - 15 mmol/LProMedica Health SystemCalcium [Mass/Vol]7.7 mg/dLLow8.5 - 10.5 mg/dLProInfirmary Ltac Hospital Health SystemChloride [Moles/Vol]108 mmol/L98 - 109 mmol/L ProMedic Health SystemCO2 [Moles/Vol]28 mmol/L22 - 32 mmol/LProMedbryce hospital Health SystemCreatinine [Mass/Vol]1.51 mg/dLHigh0.40 - 1.00 mg/dLMarymount Hospital SystemeGFR (CKD-EPI)non-race mnlpihrqn73Vcp- PINFPChillicothe Hospital SystemGlucose [Mass/Vol]77 mg/dL65 - 99 mg/dLMarymount Hospital SystemInterpretation and review of laboratory resultsAbnormalProInfirmary Ltac Hospital Health SystemPotassium [Moles/Vol]3.3 mmol/LLow3.5 - 5.0 mmol/LProMedica Health SystemSodium [Moles/Vol]141 mmol/L134 - 146 mmol/[facility]oMedica Health SystemUrea nitrogen [Mass/Vol]24 mg/dLHigh5 - 23 mg/dLProPromedica Fostoria Community Hospital SystemProInfirmary Ltac Hospital Health SystemCBC AND AUTO DIFFon 02-45-9782VQYVICOQ BASOPHIL0.0 X10E9/LNormal0.0-0.2PEast [facility] Comment on above:Performed By: #### CBCA, CMP, 88098-3, 21096-1, TSHR, 80659-5, 2777-1, 2639-3, 2157-6, 3024-7 #### [facility] ([id number]) [address] [place], [place] [address]NQOSGNJT NEUTROPHIL8.3 X10E9/LHigh1.5-6.6[facility] Shriners HospitalComment on above:Performed By: #### CBCA, CMP, 55343-7, 97128-1, TSHR, 63898-9, 2777-1, 2639-3, 2157-6, 3024-7 #### [facility] ([id number]) [address], [address] [place], [place] [address]Gdlhymqgu/100 WBC (Bld)0.2 %NormalCincinnati Shriners Hospital Comment on above:Performed By: #### CBCA, CMP, 46822-2, 31935-3, TSHR, 38994-9, 2777-1, 2639-3, 2157-6, 3024-7 #### [facility] ([id number]) [address], [address] [place], [place] [address]Avnakdqtgps (Bld) [#/Vol]0.0 10*3/uLNormal0.0-0.4ProCherrington HospitalComment on above:Performed By: #### CBCA, CMP, 21744-9, 57002-5, TSHR, 03454-8, 2777-1, 2639-3, 2157-6, 3024-7 #### [facility] ([id number]) [address], [address] [place], [place] [address]Gjqmzypzxbm/100 WBC (Bld)0.1 %NormalCincinnati Shriners Hospital Comment on above:Performed By: #### CBCA, CMP, 52299-9, 97989-0, TSHR, 39346-9, 2777-1, 2639-3, 2157-6, 3024-7 #### [facility] ([id number]) [address], [address] [place], [place] [address]Copgjmvfhdn distribution width (RBC) [Ratio]13.4 %Normal 11.5-15.0ProCherrington HospitalComment on above:Performed By: #### CBCA, CMP, 05353-2, 14982-0, TSHR, 73939-4, 2777-1, 2639-3, 2157-6, 3024-7 #### [facility] ([id number]) [address], [address] [place], [place] [address]Ibjqvknxjl (Bld) [Volume fraction]27.9 %Ejn11-21FyzUcosanCherrington HospitalComment on above:Performed By: #### CBCA, CMP, 32495-2, 26377-7, TSHR, 82351-3, 2777-1, 2639-3, 2157-6, 302-7 #### [facility] ([id number]) [address], [address] [place], [place] [address]Fdaieeptxi (Bld) [Mass/Vol]9.5 g/dLLow11.7-15.5PEast Liverpool City HospitalComment on above:Performed By: #### CBCA, CMP, 41962-1, 50722-6, TSHR, 13188-6, 2777-1, 2639-3, 2157-6, 3023-7 #### [facility] ([id number]) [address], [address] [place], [place] [address]Pxoktpryslm (Bld) [#/Vol]1.8 10*3/uLNormal1.0-3.5PEast Liverpool City HospitalComment on above:Performed By: #### CBCA, CMP, 40892-7, 04182-1, TSHR, 87867-4, 2777-1, 2639-3, 2157-6, 3023- #### [facility] ([id number]) [address], [address] [place], [place] [address]Qzrgrhlwdsb/100 WBC (Bld)16.1 %NormalCincinnati Shriners Hospital Comment on above:Performed By: #### CBCA, CMP, 41952-5, 34037-8, TSHR, 68239-5, 2777-1, 2639-3, 2157-6, 3023-7 #### [facility] ([id number]) [address], [address] [place], [place] [address]KUF (RBC) [Entitic mass]30.9 pdThamce83-61GljQhpflk [place] HospitalComment on above:Performed By: #### CBCA, CMP, 85788-4, 05631-2, TSHR, 71076-1, 2777-1, 2639-3, 2157-6, 3024-7 #### [facility] ([id number]) [address], [address] [place], [place] [address]TXEZ (RBC) [Mass/Vol]34.2 g/gIPyumnl44-32BnzXuxtgg [place] HospitalComment on above:Performed By: #### CBCA, CMP, 53272-2, 54604-7, TSHR, 13869-3, 2777-1, 2639-3, 2157-6, 3024-7 #### [facility] ([id number]) [address], [address] [place], [place] [address]YUQ (RBC) [Entitic vol]90 mYThvrts17-244HaiUgklix [place] HospitalComment on above:Performed By: #### CBCA, CMP, 25515-1, 40173-3, TSHR, 72401-4, 2777-1, 2639-3, 2157-6, 3024-7 #### [facility] ([id number]) [address], [address] [place], [place] [address]Pmxoimpnz (Bld) [#/Vol]0.9 10*3/uLNormal0-0.9ProMercy Health [facility] HospitalComment on above:Performed By: #### CBCA, CMP, 43920-3, 48649-2, TSHR, 29660-2, 2777-1, 2639-3, 2157-6, 3024-7 #### [facility] ([id number]) [address] [place], [place] [address]Ynyifnudz/100 WBC (Bld)7.9 %NormalProMedica Hassan Hospital Comment on above:Performed By: #### CBCA, CMP, 25676-0, 57889-5, TSHR, 25972-8, 2777-1, 2639-3, 2157-6, 3024-7 #### [facility] ([id number]) [address], [address] [place], [place] [address]Ywtzgiogldk/100 WBC (Bld)75.7 %NormalCincinnati Shriners Hospital Comment on above:Performed By: #### CBCA, CMP, 29414-8, 35772-8, TSHR, 26025-7, 2777-1, 2639-3, 2157-6, 3024-7 #### [facility] ([id number]) [address], [address] [place], [place] [address]Iktdnzlc mean volume (Bld) [Entitic vol]8.2 fLNormal7-12 [place] [facility]riners HospitalComment on above:Performed By: #### CBCA, CMP, 75890-2, 73138-7, TSHR, 17161-8, 2777-1, 2639-3, 2157-6, 3024-7 #### [facility] ([id number]) [address], [address] [place], [place] [address]Wriiaopfo (Bld) [#/Vol]203 10*3/iYOyqxev973-597MobMiffzo [place] HospitalComment on above:Performed By: #### CBCA, CMP, 10424-8, 72178-3, TSHR, 28530-8, 2777-1, 2639-3, 2157-6, 3024-7 #### [facility] ([id number]) [address], [address] [place], [place] [address]IQT COUNT3.09 X10E12/LLow3.80-5.20[facility] Comment on above:Performed By: #### CBCA, CMP, 70683-2, 30595-9, TSHR, 85496-6, 2777-1, 2639-3, 2157-6, 3024-7 #### [facility] ([id number]) [address], [address] [place], [place] [address]VBH (Bld) [#/Vol]11.0 10*3/uLNormal4.0-11.0[facility]ers HospitalComment on above:Performed By: #### CBCA, CMP, 09632-1, 63415-0, TSHR, 21901-1, 2777-1, 2639-3, 2157-6, 3024-7 #### [facility] ([id number]) [address], [address] [place], [place] [address]PLP auto differentialon 16-26-3734Lbnlinpjf (Bld) [#/Vol]0 10*3/uLAdena Pike Medical CenterBasophils/100 WBC (Bld)0.2 %[facility] CenterEosinophils (Bld) [#/Vol]0 10*3/uLAdena Pike Medical CenterEosinophils/100 WBC (Bld)0.1 %[facility] CenterErythrocyte distribution width (RBC) [Ratio]13.4 %11.5 - 15.0 %[facility] Medical CenterHematocrit (Bld) [Volume fraction]27.9 %Low35 - 47 %[facility] Medical CenterHemoglobin (Bld) [Mass/Vol]9.5 g/dLLow11.7 - 15.5 g/dLAdena Pike Medical CenterInterpretation and review of laboratory resultsAbnormalAdena Pike Medical CenterLymphocytes (Bld) [#/Vol]1.8 10*3/uLAdena Pike Medical CenterLymphocytes/100 WBC (Bld)16.1 %[facility] Medical CenterMCH (RBC) [Entitic mass]30.9 pg27 - 34 [facility] SystemMCHC (RBC) [Mass/Vol]34.2 g/dL32 - 36 g/dLAdena Pike Medical CenterMCV (RBC) [Entitic vol]90 fL80 - 100 [facility] HospitalMonocytes (Bld) [#/Vol]0.9 10*3/[facility] SystemMonocytes/100 WBC (Bld)7.9 %[facility] SystemNeutrophils (Bld) [#/Vol]8.3 10*3/uLHighMarymount Hospital SystemNeutrophils/100 WBC (Bld)75.7 %[facility] SystemPlatelet mean volume (Bld) [Entitic vol]8.2 fL7 - 12 fL [facility] Health SystemPlatelets (Bld) [#/Vol]203 10*3/uLMarymount Hospital System RBC (Bld) [#/Vol]3.09 10*6/[facility] HospitalWBC corrected for nucl RBC Auto (Bld) [#/Vol]11[facility] Totalon 73-13-4714KU [Catalytic activity/Vol]15948 U/LHigh24 - 170 U/[facility] [Catalytic activity/Vol]on 07-34-2067Nzhgyiskpuccoy and review of laboratory resultsAbnormalProIndiana Regional Medical CenterCPK34826 U/JBzll94-457SodYvupemCincinnati Shriners HospitalComment on above:Performed By: #### CBCA, SYED, 28106-6, 62739-1, TSHR, 69101-8, 2777-1, 2639-3, 2157-6, 3024-7 #### [facility] ([id number]) [address] [place] [address], [address] [place], [place] [address]Rdmtydn.ionized (Bld) [Mass/Vol]on 72-74-8320JsrDtujjiAdena Pike Medical CenterIONIZED CALCIUM4.6 mg/dLNormal4.5-5.3PEast Liverpool City HospitalComment on above:Performed By: #### CBCA, CMP, 19620-5, 75849-6, TSHR, 85321-2, 2777-1, 2639-3, 2157-6, 3024-7 #### [facility] ([id number]) [address] [place] [address], [address] [place], [place] [address]Zxuugbqiv (Vitamin B12) [Mass/Vol]on 97-24-9136WbnTaobnv Health SystemFERRITINon 43-93-8525Opdfpocy [Mass/Vol]214 ng/hDZarmeh43-910FsoJymftm [place] HospitalComment on above:Performed By: #### SYED RAPHAEL, 30969-4, 40943-1, TSHR, 99675-7, 2777-1, 2639-3, 2157-6, 3024-7 #### [facility] ([id number]) [address] [place] [address], [address] [place], [place] [address]Fgmnoklrjt 40-49-0263Tiqksqfv [Mass/Vol]214 ng/mL11 - 307 ng/mL ProMThe Surgical Hospital at SouthwoodsFerritin [Mass/Vol]on 11-12-0811DucUaovedLutheran Hospital Folateon 37-16-9212Vjgwxa [Mass/Vol]9.4 ng/mL5.8 - PINF ng/mLAdena Pike Medical CenterFolate [Mass/Vol]on 83-58-9523AgfMeqeuaAdena Pike Medical CenterFOLIC ACID9.4 ng/mL Normal>5.8[facility]ers HospitalComment on above:Result Comment: NEW REFERENCE RANGEPerformed By: #### SYED RAPHAEL, 72846-1, 33025-4, TSHR, 19199-5, 2777-1, 2639-3, 2157-6, 3024-7 #### [facility] ([id number]) [address] [place] [address], [address] [place], [place] [address]Lugpqrk Glucometer (BldC) [Mass/Vol]on 37-38-2424Feolijb [Mass/Vol]153 mg/vGQkgb05 - 99 mg/dLAdena Pike Medical CenterInterpretation and review of laboratory resultsAbnormalProLutheran HospitalProLutheran HospitalGlucose [Mass/Vol]153 mg/pOCkmw27-43IrjEdbpcuCherrington HospitalIRON PROFILE on 03-57-4587Puzi [Mass/Vol]70 ug/hWWdthoc06-253AxaDkhwxr [place] HospitalComment on above:Performed By: #### CBCA, CMP, 18582-7, 91637-9, TSHR, 93201-0, 2777-1, 2639-3, 2157-6, 3024-7 #### [facility] ([id number]) [address] [place], [place] [address]GJXB VYZEZNT350 ug/uUCdpenn290-334CugNregfaCincinnati Shriners Hospital Comment on above:Performed By: #### CBCA, CMP, 08622-8, 50529-8, TSHR, 01128-0, 2777-1, 2639-3, 2157-6, 3024-7 #### [facility] ([id number]) [address] [place], [place] [address]JTXG NSULQQNMOE26 % TQUEBOASQNIjxvex87-73WxrGulacz [place] HospitalComment on above:Performed By: #### ANISHA, CMP, 35931-9, 89832-4, TSHR, 72784-7, 2777-1, 2639-3, 2157-6, 3024-7 #### [facility] ([id number]) [address] [place], [place] [address]Nsepabx calciumon 51-16-3995Xoaspyz.ionized (Bld) [Mass/Vol]4.6 mg/dL4.5 - 5.3 mg/dLAdena Pike Medical CenterIonized magnesiumon 11-08-2024 Magnesium Ionized ISE (Bld) [Moles/Vol]0.63 mmol/L0.45 - 0.74 mmol/LProMedica Mercy Memorial Hospital SystemIron and TIBCon 82-56-6685Xfni [Mass/Vol]70 ug/dL50 - 170 ug/dL [facility] SystemIron binding capacity [Mass/Vol]358 ug/dL250 - 425 ug/dL [facility] Hospitaledica [facility] SystemIron saturation [Mass fraction]20ProLutheran Hospital MAGNESIUMon 62-13-4456Bsckwlyla [Mass/Vol]1.9 mg/dLNormal1.8-2.6ProCherrington HospitalComment on above:Performed By: #### CBCA, CMP, 82803-3, 67147-9, TSHR, 26025-7, 2777-1, 2639-3, 2157-6, 3024-7 #### [facility] ([id number]) [address], [address] [place], [place] [address]Aukadaovvsf 38-21-3409Jhywbksbq [Mass/Vol]1.9 mg/dL1.8 - 2.6 mg/dLAdena Pike Medical CenterMagnesium Ionized ISE (Bld) [Moles/Vol]on 11-08-2024 [facility] CenterMagnesium [Moles/Vol]0.63 mmol/LNormal0.45-0.74ProCherrington HospitalComment on above:Result Comment: NEW REFERENCE RANGEPerformed By: #### CBCA, CMP, 26941-3, 32962-1, TSHR, 00374-4, 2777-1, 2639-3, 2157-6, 3024-7 #### [facility] ([id number]) [address], [address] [place], [place] [address]Ytcegkrlp [Mass/Vol]on 54-83-8733Aijvwzkcogcnam and review of laboratory resultsAbnormalUNC Health RockinghamERUM EYWNDXMMB8766.6 ng/mLHigh 14.3-65.8[facility]ers HospitalComment on above:Performed By: #### CBCA, CMP, 46764-8, 12076-8, TSHR, 27724-8, 2777-1, 2639-3, 2157-6, 3024-7 #### [facility] ([id number]) [address], [address] [place], [place] [address]Ggfdvfosj, serumon 91-48-9644Uyttvwlsp [Mass/Vol]3593.6 ng/mL High14.3 - 65.8 ng/mLAdena Pike Medical CenterNeutrophil cytoplasmic Ab panel IF (S)on 20-76-8963t-ANCANegativeNegativeAdena Pike Medical CenterNeutrophil cytoplasmic Ab.perinuclear IF Ql (S)NegativeNegativeProAurora Medical Center Oshkosh SystemNo Panel Informationon 16-11-3586XooWiyhslMarshfield Medical Center Rice Lake SystemPHOSPHORUSon 72-22-7396Kzijnydcs [Mass/Vol]2.7 mg/dL Normal2.4-4.9ProMer[facility] Health [facility] HospitalComment on above:Performed By: #### IJEOMA, CMP, 61100-5, 44084-7, TSHR, 25340-7, 2777-1, 2639-3, 2157-6, 3024-7 #### [facility] ([id number]) [address] [place], [place] [address]VJVAYRJEMqk 05-90-8551Hulymohtu [Moles/Vol]3.8 mmol/LNormal 3.5-5.0ProMercy Health St. [facility] HospitalComment on above:Performed By: #### IJEOMA, SYED, 65983-5, 17066-3, TSHR, 96296-4, 2777-1, 2639-3, 7-6, 4-7 #### [facility] ([id number]) [address], [address] [place], [place] [address]Topunmcaq [Moles/Vol]4.0 mmol/LNormal3.5-5.0ProMercy Health St. [facility] HospitalComment on above:Performed By: #### IJEOMA, CMP, 85625-9, 23569-1, TSHR, 48751-5, 2777-1, 2639-3, 2157-6, 4-7 #### [facility] ([id number]) [address], [address] [place], [place] [address]Qxjhrqszs [Moles/Vol]3.8 mmol/LNormal3.5-5.0ProMercy Health St[facility] HospitalComment on above:Performed By: #### ANISHA, CMP, 07315-0, 48924-0, TSHR, 64806-4, 2777-1, 2639-3, 2157-6, 3024-7 #### [facility] ([id number]) [address], [address] [place], [place] [address]Wiphjnlahzes 47-76-1764Vbfuuvijt [Mass/Vol]2.7 mg/dL2.4 - 4.9 mg/dLProInfirmary Ltac Hospital Health SystemPotassiumon 95-35-9534Mndfqmgvz [Moles/Vol]3.8 mmol/L3.5 - 5.0 mmol/LProMedbryce hospital Health SystemPotassium [Moles/Vol]4 mmol/L3.5 - 5.0 mmol/LProMedica Health SystemPotassium [Moles/Vol]3.8 mmol/L3.5 - 5.0 mmol/L [facility] Medical CenterPotassium [Moles/Vol]on 43-93-5856DkuPosyroAurora Medical Center Oshkosh SystemVITAMIN B12on 49-59-8335Dznuxoare (Vitamin B12) [Mass/Vol]525 pg/lRYuhzbp093-418OjbPcpikl Toledo HospitalComment on above: Performed By: #### CBCA, CMP, 51613-3, 99049-5, TSHR, 58478-4, 2777-1, 2639-3, 2157-6, 3024-7 #### [facility] ([id number]) [address] [place], [place] [address]Lnkourt B12on 37-33-6365Qjmjhtijg (Vitamin B12) [Mass/Vol]525 pg/mL180 - 914 pg/mLMarymount Hospital SystemANA Screen w/ Reflexon 11-07-2024 Nuclear Ab IA Ql (S)NegativeNegative^NegativeProPromedica Fostoria Community Hospital SystemAldolaseon 06-59-3650Pljvdvtu [Catalytic activity/Vol]241 mU/mLHigh1.2 - 7.6 U/LPrLongs Peak Hospital Health SystemAldolase [Catalytic activity/Vol]on 56-71-0100Milkveicecfttp and review of laboratory resultsAbnormalProPromedica Fostoria Community Hospital SystemProPromedica [facility] SystemCBC AND AUTO DIFFon 56-70-5467KWIZCWTT BASOPHIL0.1 X10E9/LNormal0.0-0.2 [place] [facility] HospitalComment on above:Performed By: #### CBCA, CMP, 11163-4, 19785-4, TSHR, 26309-2, 2777-1, 2639-3, 2157-6, 3024-7 #### [facility] ([id number]) [address], [address] [place], [place] [address]QAOCZTHJ ZZTBAJVAWP49.3 X10E9/LHigh1.5-6.6ProCherrington HospitalComment on above:Performed By: #### CBCA, CMP, 25738-2, 66643-7, TSHR, 63736-1, 2777-1, 2639-3, 2157-6, 3024-7 #### [facility] ([id number]) [address] [place], [place] [address]Xrojgdwwf/100 WBC (Bld)0.4 %NormalCincinnati Shriners Hospital Comment on above:Performed By: #### CBCA, CMP, 87802-3, 02643-9, TSHR, 27872-3, 2777-1, 2639-3, 2157-6, 3024-7 #### [facility] ([id number]) [address], [address] [place], [place] [address]Lfilhpxjkzo (Bld) [#/Vol]0.0 10*3/uLNormal0.0-0.4ProCherrington HospitalComment on above:Performed By: #### CBCA, CMP, 78249-9, 31622-4, TSHR, 12952-7, 2777-1, 2639-3, 2157-6, 3024-7 #### [facility] ([id number]) [address], [address] [place], [place] [address]Djniobzcwub/100 WBC (Bld)0.0 %NormalCincinnati Shriners Hospital Comment on above:Performed By: #### CBCA, CMP, 36545-0, 47150-6, TSHR, 99874-9, 2777-1, 2639-3, 2157-6, 3024-7 #### [facility] ([id number]) [address], [address] [place], [place] [address]Cdvifulfpdy distribution width (RBC) [Ratio]13.4 %Normal 11.5-15.0C[facility] [facility]riners HospitalComment on above:Performed By: #### CBCA, CMP, 21465-9, 28506-6, TSHR, 39887-6, 2777-1, 2639-3, 2157-6, 3024-7 #### [facility] ([id number]) [address], [address] [place], [place] [address]Kauzwxojvr (Bld) [Volume fraction]30.8 %Ptd95-24JevZcxgqtCherrington HospitalComment on above:Performed By: #### CBCA, CMP, 38352-5, 45661-4, TSHR, 53312-5, 2777-1, 2639-3, 2157-6, 3024-7 #### [facility] ([id number]) [address], [address] [place], [place] [address]Nkphaywjqc (Bld) [Mass/Vol]10.5 g/dLLow11.7-15.5PEast Liverpool City HospitalComment on above:Performed By: #### CBCA, CMP, 75295-2, 02643-0, TSHR, 08742-6, 2777-1, 2639-3, 2157-6, 3024-7 #### [facility] ([id number]) [address], [address] [place], [place] [address]Zausvjszaje (Bld) [#/Vol]0.9 10*3/uLLow1.0-3.5PEast Liverpool City HospitalComment on above:Performed By: #### CBCA, CMP, 39307-3, 62804-9, TSHR, 08042-8, 2777-1, 2639-3, 2157-6, 3024-7 #### [facility] ([id number]) [address], [address] [place], [place] [address]Dpbbfpwvqtt/100 WBC (Bld)5.2 %NormalProCherrington Hospital Comment on above:Performed By: #### CBCA, CMP, 30949-0, 31365-0, TSHR, 93137-5, 2777-1, 2639-3, 2157-6, 3024-7 #### [facility] ([id number]) [address], [address] [place], [place] [address]SUE (RBC) [Entitic mass]30.6 seXbxqdn34-35VcbKwdqhx [place] HospitalComment on above:Performed By: #### CBCA, CMP, 57080-9, 84350-2, TSHR, 14981-2, 2777-1, 2639-3, 2157-6, 3024-7 #### [facility] ([id number]) [address], [address] [place], [place] [address]EZHR (RBC) [Mass/Vol]34.1 g/sYTlvowa94-50KvqDyhxuo [place] HospitalComment on above:Performed By: #### CBCA, CMP, 82162-3, 02465-1, TSHR, 34924-0, 2777-1, 2639-3, 2157-6, 3024-7 #### [facility] ([id number]) [address], [address] [place], [place] [address]CUW (RBC) [Entitic vol]90 lCLxbhvx45-598IecXxzqfe [place] HospitalComment on above:Performed By: #### CBCA, CMP, 68924-4, 21696-6, TSHR, 38296-5, 2777-1, 2639-3, 2157-6, 3024-7 #### [facility] ([id number]) [address], [address] [place], [place] [address]Dbrgyyzsx (Bld) [#/Vol]0.8 10*3/uLNormal0-0.9ProCherrington HospitalComment on above:Performed By: #### CBCA, CMP, 51729-0, 78060-9, TSHR, 35942-1, 2777-1, 2639-3, 2157-6, 3024-7 #### [facility] ([id number]) [address], [address] [place], [place] [address]Dygpyehuc/100 WBC (Bld)4.5 %NormalCincinnati Shriners Hospital Comment on above:Performed By: #### CBCA, CMP, 36754-1, 50817-8, TSHR, 85281-8, 2777-1, 2639-3, 2157-6, 3024-7 #### [facility] ([id number]) [address], [address] [place], [place] [address]Ulvgggceiuv/100 WBC (Bld)89.9 %NormalCincinnati Shriners Hospital Comment on above:Performed By: #### CBCA, CMP, 76481-4, 34673-2, TSHR, 04633-3, 2777-1, 2639-3, 2157-6, 3024-7 #### [facility] ([id number]) [address], [address] [place], [place] [address]Fbfwnxtl mean volume (Bld) [Entitic vol]8.7 fLNormal7-12 [facility] Behavioral Medical CenterComment on above:Performed By: #### CBCA, CMP, 19488-6, 96421-4, TSHR, 34389-6, 2777-1, 2639-3, 2157-6, 3024-7 #### [facility] ([id number]) [address], [address] [place], [place] [address]Leetmxdcl (Bld) [#/Vol]243 10*3/aSNneqbr379-667GyqQpdnoz [place] HospitalComment on above:Performed By: #### CBCA, CMP, 66748-9, 47120-5, TSHR, 42446-7, 2777-1, 2639-3, 2157-6, 3024-7 #### [facility] ([id number]) [address] [place], [place] [address]VYF COUNT3.44 X10E12/LLow3.80-5.20[facility] Comment on above:Performed By: #### CBCA, CMP, 73989-6, 46295-8, TSHR, 28456-4, 2777-1, 2639-3, 2156-6, 3023-7 #### [facility] ([id number]) [address] [place], [place] [address]GHD (Bld) [#/Vol]18.1 10*3/uLHigh4.0-11.0Cincinnati Shriners HospitalComment on above:Performed By: #### CBCA, CMP, 41251-8, 15325-2, TSHR, 56857-7, 2777-1, 9-3, 2156-6, 3023-7 #### [facility] ([id number]) [address] [place], [place] [address]ORF auto differentialon 54-31-9935Rjrbecwys (Bld) [#/Vol]0.1 10*3/uLProMedica Health SystemBasophils/100 WBC (Bld)0.4 %[facility] HospitaledicEly-Bloomenson Community Hospital SystemEosinophils (Bld) [#/Vol]0 10*3/uLProMedica Health SystemEosinophils/100 WBC (Bld)0 %ProMedica Health SystemErythrocyte distribution width (RBC) [Ratio] 13.4 %11.5 - 15.0 %[facility] Health SystemHematocrit (Bld) [Volume fraction]30.8 %Low35 - 47 %Pro[facility]ica Health SystemHemoglobin (Bld) [Mass/Vol]10.5 g/dLLow11.7 - 15.5 g/dLMarymount Hospital SystemInterpretation and review of laboratory resultsAbnormalProPromedica Fostoria Community Hospital SystemLymphocytes (Bld) [#/Vol]0.9 10*3/uLLow Adena Pike Medical CenterLymphocytes/100 WBC (Bld)5.2 %[facility] Hospital - YoungstownH (RBC) [Entitic mass]30.6 pg27 - 34 [facility] SystemMCHC (RBC) [Mass/Vol]34.1 g/dL32 - 36 g/dLProLutheran HospitalMCV (RBC) [Entitic vol]90 fL80 - [address] [facility] SystemMonocytes (Bld) [#/Vol]0.8 10*3/uLAdena Pike Medical CenterMonocytes/100 WBC (Bld)4.5 %[facility] Hospital SystemNeutrophils (Bld) [#/Vol]16.3 10*3/uLHighAdena Pike Medical CenterNeutrophils/100 WBC (Bld) 89.9 %Aden[facility]ike Medical CenterPlatelet mean volume (Bld) [Entitic vol]8.7 fL7 - [address] [facility] SystemPlatelets (Bld) [#/Vol]243 10*3/uLAdena Pike Medical CenterRBC (Bld) [#/Vol]3.44 10*6/uLLowAdena Pike Medical CenterWBC corrected for nucl RBC Auto (Bld) [#/Vol]18.1HKindred Hospital [facility] Totalon 60-90-2615RU [Catalytic activity/Vol]48488 U/LHigh24 - 170 U/L [facility] [Catalytic activity/Vol]79822 U/LHigh24 - 170 U/L [facility] [Catalytic activity/Vol]on 72-26-0928Udyiidzaynawwy and review of laboratory resultsAbnoGeisinger-Shamokin Area Community HospitalInterpretation and review of laboratory resultsAbWest Penn HospitalCPK28677 U/OUufl86-468HwvUuzcltCincinnati Shriners Hospital Comment on above:Performed By: #### CBCA, CMP, 48638-7, 35141-6, TSHR, 66178-6, 2777-1, 2639-3, 2157-6, 3024-7 #### [facility] ([id number]) [address] [place] [address], [address] [place], [place] [id number] U/TYbxb47-306XouAtlwgqCherrington HospitalComment on above: Performed By: #### IJEOMA, CMP, 89263-5, 20495-3, TSHR, 65796-4, 2777-1, 2639-3, 2157-6, 3024-7 #### [facility] ([id number]) [address], [address] [place], [place] [address]DKHATHWOUIWLF METABOLIC PANELon 91-19-5684Tzwmapg [Mass/Vol]3.8 g/dLNormal3.2-5.3ProMedica [facility]tering Health Behavioral Medical CenterComment on above:Performed By: #### IJEOMA, CMP, 12423-4, 85971-4, TSHR, 48849-2, 2777-1, 2639-3, 2157-6, 3024-7 #### [facility] ([id number]) [address], [address] [place], [place] [address]RKN [Catalytic activity/Vol]61 U/YUihbqu68-200RgsEveaji [place] HospitalComment on above:Performed By: #### IJEOMA, CMP, 11470-9, 89057-2, TSHR, 61582-6, 2777-1, 2639-3, 2157-6, 3024-7 #### [facility] ([id number]) [address], [address] [place], [place] [address]ZRV [Catalytic activity/Vol]1446 U/LHigh0-31PEast [facility] City HospitalComment on above:Performed By: #### CBCA, CMP, 00354-5, 22966-1, TSHR, 64791-9, 2777-1, 2639-3, 2157-6, 3024-7 #### [facility] ([id number]) [address], [address] [place], [place] [address]Qbiec gap [Moles/Vol]8 mmol/LNormal5-15ProMer[facility] Health [facility] Comment on above:Performed By: #### CBCA, CMP, 85767-9, 94479-7, TSHR, 09807-3, 2777-1, 2639-3, 2157-6, 3024-7 #### [facility] ([id number]) [address], [address] [place], [place] [address]ULC [Catalytic activity/Vol]783 U/LHigh0-41ProCherrington HospitalComment on above:Performed By: #### CBCA, CMP, 89679-0, 61756-4, TSHR, 36942-0, 2777-1, 2639-3, 2157-6, 3024-7 #### [facility] ([id number]) [address] [place], [place] [address]Ohdkzgvlf [Mass/Vol]0.5 mg/dLNormal0.3-1.2PEast Liverpool City HospitalComment on above:Performed By: #### CBCA, CMP, 40960-4, 00516-5, TSHR, 51469-5, 2777-1, 2639-3, 2157-6, 3024-7 #### [facility] ([id number]) [address] [place], [place] [address]Ugfburg [Mass/Vol]8.4 mg/dLLow8.5-10.5PEast [facility] Comment on above:Performed By: #### CBCA, CMP, 34471-2, 89416-3, TSHR, 06722-9, 2777-1, 2639-3, 2157-6, 3024-7 #### [facility] ([id number]) [address], [address] [place], [place] [address]Bvawrapc [Moles/Vol]103 mmol/RIazaaf24-211ApnJwbonk [place] HospitalComment on above:Performed By: #### CBCA, CMP, 92050-0, 47339-9, TSHR, 76951-5, 2777-1, 2639-3, 2157-6, 3024-7 #### [facility] ([id number]) [address], [address] [place], [place] [address]CD6 [Moles/Vol]31 mmol/UAigsqp13-95EueOiksykEast [facility] Hospital Comment on above:Performed By: #### IJEOMA, CMP, 00308-6, 95629-1, TSHR, 57157-5, 2777-1, 2639-3, 2156-6, 7 #### [facility] ([id number]) [address], [address] [place], [place] [address]Jlawyzwnrv [Mass/Vol]2.00 mg/dLHigh0.40-1.00ProCherrington HospitalComment on above:Result Comment: METHOD TRACEABLE TO IDMS STANDARD Performed By: #### IJEOMA, CMP, 94297-5, 65349-7, TSHR, 28128-5, 7-1, 2638-3, 2156-6, 3024-04 #### [facility] ([id number]) [address], [address] [place], [place] [address]XUF/1.73 sq M.predicted among non-blacks MDRD (S/P/Bld) [Vol rate/Area]35 mL/min/{1.73_m2}Low>59ProCherrington HospitalComment on above: Result Comment: Reported eGFR is based on the CKD-EPI 2020 equation that does not use a race coefficient.Performed By: #### ANISHA, CMP, 22160-4, 67056-7, TSHR, 88221-3, 2777-1, 9-3, 2156-6, 3023-7 #### [facility] ([id number]) [address], [address] [place], [place] [address]Iwcokri [Mass/Vol]137 mg/iEJpen31-87DlnIxgwdxCincinnati Shriners Hospital Comment on above:Performed By: #### CBCA, CMP, 91585-2, 11411-3, TSHR, 86057-4, 2777-1, 2639-3, 2157-6, 3024-7 #### [facility] ([id number]) [address], [address] [place], [place] [address]Ufuohhljd [Moles/Vol]4.1 mmol/LNormal3.5-5.0ProMercy Health St. [facility] HospitalComment on above:Performed By: #### CBCA, CMP, 27615-2, 56200-8, TSHR, 56012-3, 2777-1, 2639-3, 2157-6, 3024-7 #### [facility] ([id number]) [address] [place], [place] [address]Yawpezc [Mass/Vol]6.2 g/dLNormal6.0-8.0ProCherrington Hospital Comment on above:Performed By: #### CBCA, CMP, 17750-0, 39759-5, TSHR, 75579-8, 2777-1, 2639-3, 2157-6, 3024-7 #### [facility] ([id number]) [address], [address] [place], [place] [address]Jwrjjg [Moles/Vol]142 mmol/IRgjzwp095-172HsaBsdapj [place] HospitalComment on above:Performed By: #### CBCA, CMP, 61401-1, 96938-4, TSHR, 06927-5, 7-1, 2639-3, 2157-6, 3024-7 #### [facility] ([id number]) [address], [address] [place], [place] [address]Wkoo nitrogen [Mass/Vol]29 mg/dLHigh5-23ProCherrington HospitalComment on above:Performed By: #### CBCA, CMP, 60788-8, 32884-9, TSHR, 82269-9, 2777-1, 2639-3, 2157-6, 3024-7 #### [facility] ([id number]) [address], [address] [place], [place] [address]Njkbdomdhgrmv metabolic panelon 29-54-8599Dwmaibx [Mass/Vol]3.8 g/dL3.2 - 5.3 g/dLProMedica Health SystemALP [Catalytic activity/Vol]61 U/L39 - 130 U/LProMedica Health SystemALT No additional P-5'-P [Catalytic activity/Vol] 1446 U/LHigh0 - 31 U/LProMedbryce hospital Health SystemAnion gap [Moles/Vol]8 mmol/L5 - 15 mmol/LProMedica Health SystemAST [Catalytic activity/Vol]783 U/LHigh0 - 41 U/L ProMRed Lake [facility] Hospital SystemBilirubin [Mass/Vol]0.5 mg/dL0.3 - 1.2 mg/dLProMedica Health SystemCalcium [Mass/Vol]8.4 mg/dLLow8.5 - 10.5 mg/dLProPromedica Fostoria Community Hospital SystemChloride [Moles/Vol]103 mmol/L98 - 109 mmol/LProMedica Health SystemCO2 [Moles/Vol]31 mmol/L22 - 32 mmol/[facility] SystemCreatinine [Mass/Vol]2 mg/dLHigh0.40 - 1.00 mg/dLProPromedica Fostoria Community Hospital SystemeGFR (CKD-EPI)non-race ivtoemequ50Krf- PINAshtabula County Medical Center SystemGlucose [Mass/Vol]137 mg/xOOhgu34 - 99 mg/dLMarymount Hospital SystemInterpretation and review of laboratory results AbnormalProPromedica Fostoria Community Hospital SystemPotassium [Moles/Vol]4.1 mmol/L3.5 - 5.0 mmol/L ProMbaptist medical center south Health SystemProtein [Mass/Vol]6.2 g/dL6.0 - 8.0 g/dLMarymount Hospital SystemSodium [Moles/Vol]142 mmol/L134 - 146 mmol/LPrLongs Peak Hospital Health SystemUrea nitrogen [Mass/Vol]29 mg/dLHigh5 - 23 mg/dLMarymount Hospital SystemENA Panelon 55-93-7086Tajfysuonui Ql (U)[facility] at VCURibonucleoprotein extractable nuclear IgG Qn (S)[facility] SystemCL-70 extractable nuclear Ab Ql (S)[facility] Systemjogrens syndrome-A extractable nuclear Ab Qn (S)[facility] Systemjogrens syndrome-B extractable nuclear IgG Qn (S)[facility] Systemmith extractable nuclear IgG Qn (S)[facility] at VCUFREE LIGHT CHAINSon 91-08-9503ZBSI WILFREDO/LAMBD RATIO 0.55Atmbzb4.26-1.65ProCherrington HospitalComment on above:Performed By: #### CBCA, CMP, 35415-6, 39461-8, TSHR, 68257-0, 2777-1, 2639-3, 2157-6, 3024-7 #### [facility] ([id number]) [address] [place], [place] [address]OIXF KAPPA LT CHAINS0.76 mg/dLNormal0.33-1.94ProCherrington HospitalComment on above:Performed By: #### ANISHA, [facility], 76751-2, 28835-1, TSHR, 21561-8, 2777-1, 2639-3, 2157-6, 3024-7 #### [facility] ([id number]) [address], [address] [place], [place] [address]KJXY LAMBDA LT CHAINS0.83 mg/dLNormal0.57-2.63ProCherrington HospitalComment on above:Performed By: #### ANISHA, CMP, 39194-0, 69965-6, TSHR, 48262-5, 2777-1, 2639-3, 2157-6, 3024-7 #### [facility] ([id number]) [address] [place], [place] [address]Ueca light chainson 25-44-6258Faujxuykpvlmee light chains.kappa.free (S) [Mass/Vol]0.76 mg/dL0.33 - 1.94 mg/dLProLutheran HospitalImmunoglobulin light chains.kappa.free/Immunoglobulin light chains.lambda (S) [Mass ratio]0.920.26 - 1.65ProLutheran HospitalImmunoglobulin light chains.lambda [Mass/Vol]0.83 mg/dL0.57 - 2.63 mg/dLSouthwood Psychiatric HospitalGlomerular basement membrane IgG ABon 11-07-2024 Glomerular basement membrane IgG Qn (S)NINMineral Area Regional Medical CenterGlomerular basement membrane IgG Qn (S)on 22-78-3911IuaGeqjguAdena Pike Medical CenterGlucose Glucometer (BldC) [Mass/Vol]on 62-02-0362Spnbamc [Mass/Vol]107 mg/hATgyd25 - 99 mg/dLAdena Pike Medical CenterInterpretation and review of laboratory results AbnormalAllegheny General HospitalGlucose [Mass/Vol]90 mg/dL 65 - 99 mg/dLAllegheny General HospitalGlucose [Mass/Vol]107 mg/pKJyrq37-29MzkGtbnamCincinnati Shriners HospitalGlucose [Mass/Vol]90 mg/mUCqousk13-95 [facility]ers HospitalGlucose [Mass/Vol]138 mg/sGHyxa96 - 99 mg/dLAdena Pike Medical CenterInterpretation and review of laboratory resultsAbnormalAllegheny General HospitalGlucose [Mass/Vol]138 mg/eFFbfm07-34 [facility] Shriners HospitalIonized magnesiumon 52-07-1809Udliukdxl Ionized ISE (Bld) [Moles/Vol]0.74 mmol/L0.45 - 0.74 mmol/LPrKnox Community HospitalMAGNESIUMon 46-46-9151Ffersnnhq [Mass/Vol]1.9 mg/dLNormal1.8-2.6[facility] Comment on above:Performed By: #### CBCA, CMP, 68394-8, 62853-9, TSHR, 22743-5, 2777-1, 2639-3, 2157-6, 3024-7 #### [facility] ([id number]) [address] [place] [address], [address] [place], [place] [address]Sqrbxpikapb 44-99-7378Tdtjjpppq [Mass/Vol]1.9 mg/dL1.8 - 2.6 mg/dLProMedica Health SystemMagnesium Ionized ISE (Bld) [Moles/Vol]on 11-07-2024 ProMRed [facility] SystemMagnesium [Moles/Vol]0.74 mmol/LNormal0.45-0.74ProCherrington HospitalComment on above:Result Comment: NEW REFERENCE RANGEPerformed By: #### CBCA, CMP, 51536-5, 89921-7, TSHR, 01586-0, 2777-1, 2639-3, 2157-6, 3024-7 #### [facility] ([id number]) [address] [place], [place] [address]Cwgvqfxam [Mass/Vol]on 21-46-9437Psopdjkjbniozm and review of laboratory resultsAbnormalProLutheran HospitalProJ.W. Ruby Memorial HospitalERUM IHWKRBEYK8815.2 ng/hARuzn64.3-65.8ProCherrington HospitalComment on above: Performed By: #### CBCA, CMP, 29419-8, 84546-9, TSHR, 05520-0, 2777-1, 2639-3, 2157-6, 3024-7 #### [facility] ([id number]) [address] [place], [place] [address]Qkmjrooqp, serumon 45-88-8292Xwtduhrqv [Mass/Vol]2484.2 ng/mL High14.3 - 65.8 ng/mLAdena Pike Medical CenterNeutrophil cytoplasmic Ab panel IF (S)on 88-18-9977a-ANCANegativeNormalNegativeCincinnati Shriners HospitalComment on above:Performed By: #### CBCA, CMP, 18199-7, 80971-5, TSHR, 69819-4, 2777-1, 2639-3, 2157-6, 3024-7 #### [facility] ([id number]) [address] [place], [place] [address]p-HKWMGnnigkwmQgfelfHtywuzzeLmvAtjore [facility]edo HospitalComment on above:Result Comment: NOTE Negative for cANCA and pANCA patterns by immunofluorescence. ADDITIONAL INFORMATION This test was developed and its performance characteristics determined by [facility] in a manner consistent with CLIA requirements. This test has not been cleared or approved by the U.S. Food and Drug Administration. Test Performed by: [facility] [address] [place] [address] Engagement Executive: Ulysses Juaerz Ph.D.; CLIA# [id number] By: #### CBCA, CMP, 42427-1, 10729-9, TSHR, 38429-9, 2777-1, 2639-3, 2157-6, 3024-7 #### [facility] ([id number]) [address] [place], [place] [address]Jr Panel Informationon 42-35-7117VcwFgregeSouthwood Psychiatric HospitalPHOSPHORUSon 83-08-3325Krdromlfu [Mass/Vol]3.1 mg/dL Normal2.4-4.9C[facility] Shriners HospitalComment on above:Performed By: #### CBCA, CMP, 07548-7, 78733-4, TSHR, 18081-8, 2777-1, 2639-3, 2157-6, 3024-7 #### [facility] ([id number]) [address], [address] [place], [place] [address]RXKYUPIMQvv 15-85-4339Ttvidcuen [Moles/Vol]3.1 mmol/LLow3.5-5.0 [facility]ers HospitalComment on above:Performed By: #### CBCA, CMP, 03876-5, 73913-5, TSHR, 45812-9, 2777-1, 2639-3, 2157-6, 3024-7 #### [facility] ([id number]) [address], [address] [place], [place] [address]Kvemkpmis [Moles/Vol]3.5 mmol/LNormal3.5-5.0C[facility] Shriners HospitalComment on above:Performed By: #### CBCA, CMP, 37769-6, 31221-8, TSHR, 52870-1, 2777-1, 2639-3, 2157-6, 3024-7 #### [facility] ([id number]) [address], [address] [place], [place] [address]Ylzfrkyuo [Moles/Vol]3.8 mmol/LNormal3.5-5.0ProCherrington HospitalComment on above:Performed By: #### CBCA, CMP, 58019-2, 84822-8, TSHR, 02663-3, 2777-1, 2639-3, 2157-6, 3024-7 #### [facility] ([id number]) [address], [address] [place], [place] [address]Zcdtsfnbbcdb 06-48-2768Tdlxmqols [Mass/Vol]3.1 mg/dL2.4 - 4.9 mg/dLMarymount Hospital SystemPotassiumon 77-42-6774Qiouhsgmc [Moles/Vol]3.1 mmol/LLow3.5 - 5.0 mmol/LProMedica Health SystemPotassium [Moles/Vol]3.5 mmol/L 3.5 - 5.0 mmol/LProMedica Health SystemPotassium [Moles/Vol]3.8 mmol/L3.5 - 5.0 mmol/LProMedica Health SystemPotassium [Moles/Vol]on 44-45-5037Ngbntwxtqmpqlc and review of laboratory resultsAbnormalProMedica Health SystemProMedica Health SystemProMediSt. Joseph's HealthProInfirmary Ltac [facility] Health SystemProtein electrophoresis, serumon 13-17-7027Qdntonf [Mass/Vol]3.4 g/dL3.4 - 5.3 g/dLMarymount Hospital SystemAlpha 1 globulin Elph [Mass/Vol]0.4 g/dL0.1 - 0.4 g/dLMarymount Hospital SystemAlpha 2 globulin Elph [Mass/Vol]0.8 g/dL0.4 - 1.1 g/dLProMedica Health SystemBeta globulin Elph [Mass/Vol]0.7 g/dL0.5 - 1.2 g/dLAdena Pike Medical Center Gamma globulin Elph [Mass/Vol]0.6 g/dL0.5 - 1.6 g/dLAdena Pike Medical Center Interpretation and review of laboratory resultsAbnormalAdena [facility] Medical Center Pathologist interpretation (Bld) [Interp]Unremarkable protein distribution, no monoclonal bands.[facility] SystemProtein [Mass/Vol]5.9 g/dLLow6.0 - 8.0 g/dLAllegheny General HospitalAlbumin [Mass/Vol]REQUEST CREDITED3.4 - 5.3 g/dLAdena Pike Medical CenterAlpha 1 globulin Elph [Mass/Vol] REQUEST CREDITED0.1 - 0.4 g/dLAdena Pike Medical CenterAlpha 2 globulin Elph [Mass/Vol]REQUEST CREDITED0.4 - 1.1 g/dLAdena Pike Medical CenterBeta globulin Elph [Mass/Vol]REQUEST CREDITED0.5 - 1.2 g/dLAdena Pike Medical CenterGamma globulin Elph [Mass/Vol]REQUEST CREDITED0.5 - 1.6 g/dLAdena Pike Medical Center Pathologist interpretation (Bld) [Interp]REQUEST CREDITEDAdena [facility]ike Medical [facility] Protein [Mass/Vol]6.3 g/dL6.0 - 8.0 g/dLCass Medical CenterERUM PROTEIN ELECTROPHORESISon 86-80-4292Qdregiq [Mass/Vol]3.4 g/dLNormal 3.4-5.3PSt. James Parish Hospitalica Ket[facility] Behavioral Medical CenterComment on above:Performed By: #### SYED RAPHAEL, 77524-3, 79400-5, TSHR, 74622-3, 2777-1, 2639-3, 2157-6, 3024-7 #### [facility] ([id number]) [address] [place], [place] [address]VQZBO 1 GLOBULIN0.4 g/dLNormal0.1-0.4[facility] Comment on above:Performed By: #### SYED RAPHAEL, 70127-5, 21093-7, TSHR, 91674-2, 2777-1, 2639-3, 2157-6, 3024-7 #### [facility] ([id number]) [address], [address] [place], [place] [address]QZQEN 2 GLOBULIN0.8 g/dLNormal0.4-1.1PEast [facility] Comment on above:Performed By: #### CBCA, CMP, 00097-7, 34377-1, TSHR, 26123-2, 2777-1, 2639-3, 2157-6, 3024-7 #### [facility] ([id number]) [address], [address] [place], [place] [address]SFRX GLOBULIN0.7 g/dLNormal0.5-1.2PEast [facility] Comment on above:Performed By: #### CBCA, CMP, 59184-1, 73301-1, TSHR, 34070-1, 2777-1, 2639-3, 2157-6, 3024-7 #### [facility] ([id number]) [address], [address] [place] [id number] GLOBULIN0.6 g/dLNormal0.5-1.6[facility] Comment on above:Performed By: #### CBCA, CMP, 64745-3, 06727-4, TSHR, 51207-7, 2777-1, 2639-3, 2157-6, 3024-7 #### [facility] ([id number]) [address], [address] [place], [place] [address]JDQV. ELECTROPHORESIS INTERPUnremarkable protein distribution, no monoclonal bands.NormalProCherrington HospitalComment on above:Performed By: #### CBCA, CMP, 65261-0, 87300-9, TSHR, 93740-8, 2777-1, 2639-3, 2157-6, 3024-7 #### [facility] ([id number]) [address], [address] [place], [place] [address]Ohpqrwv [Mass/Vol]5.9 g/dLLow6.0-8.0ProCherrington Hospital Comment on above:Performed By: #### CBCA, CMP, 62642-3, 28076-5, TSHR, 04232-0, 2777-1, 2639-3, 2157-6, 3024-7 #### [facility] ([id number]) [address] [facility], [address] [address]Stbfpeju [Catalytic activity/Vol]on 75-19-2029ZFPQOOPP592.0 U/L High1.2-7.6ProCherrington HospitalComment on above:Result Comment: NOTE REFERENCE INTERVAL: Aldolase Access complete set of age- and/or gender-specific reference intervals for this test in the [facility] ([employer]). Performed By: [facility] [address] [place] [address] [employer] Jointer: Jose Juan Rasheed MD, PhD CLIA Number: [id number] By: #### CBCA, CMP, 58643-4, 35519-0, TSHR, 70584-0, 2777-1, 2639-3, 2157-6, 302- #### [facility] ([id number]) [address] [place] [address]F DIFFICILE BY PCRon 11-06-2024. difficile toxin genes JACKSON+probe Ql (Stl)TOXIGENIC C DIFF Negative (qualifier value) 027 NAP1 Negative (qualifier value)NormalPRNEGProCherrington HospitalComment on above: Performed By: #### CBCA, CMP, 09062-6, 01840-1, TSHR, 99568-8, 2777-1, 2639-3, 2157-6, 3024-7 #### [facility] ([id number]) [address] [place] [address], [address] [address]L-erpilupj proteinon 63-95-6383XSH [Mass/Vol]5.1 mg/dLHigh0.000 - 0.744 mg/dLAdena Pike Medical CenterC. difficile toxin genes JACKSON+probe Ql (Stl) on 85-36-1375CzaJrjzkdLutheran HospitalC3 complementon 82-37-8789Wwoezfqins C3 [Mass/Vol]104 mg/dL86 - 184 mg/dLAdena Pike Medical CenterC4 complementon 44-75-9516Gymtgjcgfj C4 [Mass/Vol]35 mg/dL16 - 47 mg/dLAdena Pike Medical Center CBC AND AUTO DIFFon 86-36-4642USBHFBQH BASOPHIL0.0 X10E9/LNormal0.0-0.2ProMedAdena Regional Medical CenterComment on above:Performed By: #### CBCA, CMP, 72181-0, 16250-4, TSHR, 12463-8, 2777-1, 2639-3, 2157-6, 3024-7 #### [facility] ([id number]) [address], [address] [place], [place] [address]FPQYEGZO QTFMVQDDHQ51.9 X10E9/LHigh1.5-6.6ProCherrington HospitalComment on above:Performed By: #### CBCA, CMP, 62664-5, 00436-8, TSHR, 28232-7, 2777-1, 2639-3, 2157-6, 3024-7 #### [facility] ([id number]) [address], [address] [place], [place] [address]Xkvqbtruiao (Bld) [#/Vol]0.0 10*3/uLNormal0.0-0.4Cincinnati Shriners HospitalComment on above:Performed By: #### CBCA, CMP, 22789-0, 77977-7, TSHR, 47359-6, 2777-1, 2639-3, 2157-6, 3024-7 #### [facility] ([id number]) [address] [place], [place] [address]Iavqtdnitfl/100 WBC (Bld)0.0 %NormalProCherrington Hospital Comment on above:Performed By: #### CBCA, CMP, 49275-3, 85377-6, TSHR, 30984-5, 2777-1, 2639-3, 2157-6, 3024-7 #### [facility] ([id number]) [address], [address] [place], [place] [address]Vsfcptyqdiw/100 WBC (Bld)3.0 %NormalCincinnati Shriners Hospital Comment on above:Performed By: #### CBCA, CMP, 42038-4, 59342-9, TSHR, 28408-2, 2777-1, 2639-3, 2157-6, 3024-7 #### [facility] ([id number]) [address], [address] [place], [place] [address]Fnsxdouhn (Bld) [#/Vol]1.0 10*3/uLHigh0-0.9C[facility] Shriners HospitalComment on above:Performed By: #### CBCA, CMP, 06994-2, 84644-3, TSHR, 67083-0, 2777-1, 2639-3, 2157-6, 3024-7 #### [facility] ([id number]) [address], [address] [place], [place] [address]YPT COUNT3.42 X10E12/LLow3.80-5.20[facility] Comment on above:Performed By: #### CBCA, CMP, 23750-5, 67558-9, TSHR, 86500-6, 2777-1, 2639-3, 2157-6, 3024-7 #### [facility] ([id number]) [address], [address] [place], [place] [address]CXD (Bld) [#/Vol]21.6 10*3/uLHigh4.0-11.0C[facility] Shriners HospitalComment on above:Performed By: #### CBCA, CMP, 46706-9, 43177-0, TSHR, 91047-7, 2777-1, 2639-3, 2157-6, 3024-7 #### [facility] ([id number]) [address], [address] [place], [place] [address]Kconmbipw/100 WBC (Bld)0.2 %NormalMarymount Hospital SystemComment on above:Performed By: #### CBCA, CMP, 07287-2, 25635-7, TSHR, 49069-4, 2777-1, 2639-3, 2157-6, 3024-7 #### [facility] ([id number]) [address], [address] [place], [place] [address]Oulrvjduoax distribution width (RBC) [Ratio]13.3 %Normal 11.5-15.0Marymount Hospital SystemComment on above:Performed By: #### CBCA, CMP, 27590-4, 74747-5, TSHR, 62710-4, 2777-1, 2639-3, 2157-6, 3024-7 #### [facility] ([id number]) [address], [address] [place], [place] [address]Axsoinigix (Bld) [Volume fraction]30.3 %Tvy30-78NnuZejelo Health SystemComment on above:Performed By: #### CBCA, CMP, 38464-9, 79005-0, TSHR, 29368-5, 2777-1, 2639-3, 2157-6, 3024-7 #### [facility] ([id number]) [address], [address] [place], [place] [address]Urgkvkefli (Bld) [Mass/Vol]10.4 g/dLLow11.7-15.5PChillicothe Hospital SystemComment on above:Performed By: #### CBCA, CMP, 17914-2, 16872-4, TSHR, 87441-0, 2777-1, 2639-3, 2157-6, 3024-7 #### [facility] ([id number]) [address], [address] [place], [place] [address]Dkshuumbfsx (Bld) [#/Vol]0.7 10*3/uLLow1.0-3.5PNationwide Children's HospitalComment on above:Performed By: #### CBCA, CMP, 21417-0, 14872-9, TSHR, 19152-8, 2777-1, 2639-3, 2157-6, 3024-7 #### [facility] ([id number]) [address], [address] [place], [place] [address]LFO (RBC) [Entitic mass]30.5 mmWtuumz17-52OyjWeakhd Health SystemComment on above:Performed By: #### CBCA, CMP, 12003-3, 18986-4, TSHR, 39873-0, 2777-1, 2639-3, 2157-6, 3024-7 #### [facility] ([id number]) [address], [address] [place], [place] [address]WXOF (RBC) [Mass/Vol]34.4 g/gSVpymzy21-28VnkWmfcrm Health System Comment on above:Performed By: #### CBCA, CMP, 04806-5, 14932-1, TSHR, 77447-8, 2777-1, 2639-3, 2157-6, 3024-7 #### [facility] ([id number]) [address], [address] [place], [place] [address]DBF (RBC) [Entitic vol]89 jWBkupem38-358WqpDdwbpf Health System Comment on above:Performed By: #### CBCA, CMP, 34386-3, 70227-3, TSHR, 17998-4, 2777-1, 2639-3, 2157-6, 3024-7 #### [facility] ([id number]) [address], [address] [place], [place] [address]Vbhwuqrxo/100 WBC (Bld)4.6 %NormalProPromedica Fostoria Community Hospital SystemComment on above:Performed By: #### CBCA, CMP, 61818-0, 54637-6, TSHR, 60753-7, 2777-1, 2639-3, 2157-6, 3024-7 #### [facility] ([id number]) [address], [address] [place], [place] [address]Nhlbfheqgtu/100 WBC (Bld)92.2 %NormalMarymount Hospital System Comment on above:Performed By: #### CBCA, CMP, 33001-4, 63208-7, TSHR, 92480-5, 2777-1, 2639-3, 2157-6, 3024-7 #### [facility] ([id number]) [address] [place], [place] [address]Lrqpsuii mean volume (Bld) [Entitic vol]7.9 fLNormal7-12 Marymount Hospital SystemComment on above:Performed By: #### CBCA, CMP, 82015-3, 81908-4, TSHR, 54512-6, 2777-1, 2639-3, 2157-6, 3024-7 #### [facility] ([id number]) [address] [place], [place] [address]Pwesbknru (Bld) [#/Vol]242 10*3/hAJoifyq721-767LuwJzawlz Health SystemComment on above:Performed By: #### CBCA, CMP, 62817-7, 07701-1, TSHR, 39787-0, 2777-1, 2639-3, 2157-6, 3024-7 #### [facility] ([id number]) [address], [address] [place], [place] [address]YWQ auto differentialon 96-72-9829Veiyhzvxd (Bld) [#/Vol]0 10*3/uLProMedica Health SystemEosinophils (Bld) [#/Vol]0 10*3/uLProMedica Health SystemEosinophils/100 WBC (Bld)0 %ProMedica Health SystemInterpretation and review of laboratory resultsAbnoAtrium Health UnionLymphocytes/100 WBC (Bld)3 %Adena Pike Medical CenterMonocytes (Bld) [#/Vol]1 10*3/uLShenandoah Memorial HospitalNeutrophils (Bld) [#/Vol]19.9 10*3/uLShenandoah Memorial HospitalRBC (Bld) [#/Vol]3.42 10*6/uLBrown Memorial HospitalWBC corrected for nucl RBC Auto (Bld) [#/Vol]21.6HighPenn State Health Rehabilitation Hospital Total on 64-82-2349MO [Catalytic activity/Vol]35487 U/LHigh24 - 170 U/[facility] [Catalytic activity/Vol]on 10-15-7582Rtkztwrmicxuav and review of laboratory resultsAbnoGeisinger-Shamokin Area Community Hospital COMPREHENSIVE METABOLIC PANELon 72-34-5751IYJ [Catalytic activity/Vol]1426 U/L [facility]007 Hogan StreetComment on above:Performed By: #### CBCA, CMP, 85806-6, 94351-7, TSHR, 89705-1, 2777-1, 2639-3, 2157-6, 3024-7 #### [facility] ([id number]) [address] [place], [place] [address]WTJ/1.73 sq M.predicted among non-blacks MDRD (S/P/Bld) [Vol rate/Area]29 mL/min/{1.73_m2}Low>59Cincinnati Shriners HospitalComment on above: Result Comment: Reported eGFR is based on the CKD-EPI 2020 equation that does not use a race coefficient.Performed By: #### CBCA, CMP, 02411-8, 75354-0, TSHR, 82711-7, 2777-1, 2639-3, 2157-6, 3024-7 #### [facility] ([id number]) [address] [place], [place] [address]Okgwfbz [Mass/Vol]3.7 g/dLNormal3.2-5.3PNationwide Children's Hospital Comment on above:Performed By: #### CBCA, CMP, 34123-7, 17997-4, TSHR, 66017-6, 2777-1, 2639-3, 2157-6, 3024-7 #### [facility] ([id number]) [address], [address] [place], [place] [address]RFR [Catalytic activity/Vol]63 U/YWspqlz68-079OitUlxlbkAdena Pike Medical CenterComment on above:Performed By: #### CBCA, CMP, 18150-0, 49145-9, TSHR, 01111-2, 2777-1, 2639-3, 2157-6, 3024-7 #### [facility] ([id number]) [address], [address] [place], [place] [address]Lcygu gap [Moles/Vol]12 mmol/LNormal5-15A[facility] Comment on above:Performed By: #### CBCA, CMP, 85314-5, 21610-7, TSHR, 33313-8, 2777-1, 2639-3, 2157-6, 3024-7 #### [facility] ([id number]) [address], [address] [place], [place] [address]UHY [Catalytic activity/Vol]1597 U/LHigh0-41Marymount Hospital SystemComment on above:Performed By: #### CBCA, CMP, 14703-6, 74075-2, TSHR, 24851-1, 2777-1, 2639-3, 2157-6, 3024-7 #### [facility] ([id number]) [address], [address] [place], [place] [address]Phdczegal [Mass/Vol]0.4 mg/dLNormal0.3-1.2PChillicothe Hospital SystemComment on above:Performed By: #### CBCA, CMP, 82347-6, 31684-0, TSHR, 80763-1, 2777-1, 2639-3, 2157-6, 3024-7 #### [facility] ([id number]) [address], [address] [place] [address]Wrbjvba [Mass/Vol]7.7 mg/dLLow8.5-10.5PNationwide Children's Hospital Comment on above:Performed By: #### CBCA, CMP, 59419-2, 22025-9, TSHR, 27011-0, 2777-1, 2639-3, 2157-6, 3024-7 #### [facility] ([id number]) [address], [address] [place], [place] [address]Jnmbtimd [Moles/Vol]106 mmol/JKqtcrc17-560OpvTexfyl Health SystemComment on above:Performed By: #### CBCA, CMP, 47620-7, 57098-9, TSHR, 61794-6, 2777-1, 2639-3, 2157-6, 3024-7 #### [facility] ([id number]) [address], [address] [place] [address]PE6 [Moles/Vol]22 mmol/HXqjlrb01-45YkcKzzamiNationwide Children's Hospital Comment on above:Performed By: #### CBCA, CMP, 87154-5, 00423-0, TSHR, 63285-1, 2777-1, 2639-3, 2157-6, 3024-7 #### [facility] ([id number]) [address], [address] [place], [place] [address]Twbdowront [Mass/Vol]2.33 mg/dLHigh0.40-1.00Marymount Hospital SystemComment on above:Result Comment: METHOD TRACEABLE TO IDMS STANDARD Performed By: #### CBCA, CMP, 50409-5, 12192-0, TSHR, 99124-3, 2777-1, 2639-3, 2157-6, 3024-7 #### [facility] ([id number]) [address], [address] [place] [address] [Mass/Vol]155 mg/mVBaza64-89XkaMiftwdAdena Pike Medical Center Comment on above:Performed By: #### SYED RAPHAEL, 64677-4, 34640-1, TSHR, 47537-3, 2777-1, 2639-3, 2157-6, 3024-7 #### [facility] ([id number]) [address], [address] [place] [address]Rwuqyldjs [Moles/Vol]4.1 mmol/LNormal3.5-5.0Adena Pike Medical CenterComment on above:Performed By: #### SYED RAPHAEL, 49494-7, 78815-8, TSHR, 26921-5, 2777-1, 2639-3, 2157-6, 3024-7 #### [facility] ([id number]) [address], [address] [place], [place] [address]Lmjlohz [Mass/Vol]6.3 g/dLNormal6.0-8.0[facility] Comment on above:Performed By: #### SYED RAPHAEL, 31055-5, 97596-2, TSHR, 52756-9, 2777-1, 2639-3, 2157-6, 3024-7 #### [facility] ([id number]) [address], [address] [place], [place] [address]Lsndbf [Moles/Vol]140 mmol/FWcljfh432-261JwkAeecdt Health System Comment on above:Performed By: #### IJEOMA, SYED, 78062-0, 45719-7, TSHR, 83152-7, 2777-1, 2639-3, 2157-6, 3024-7 #### [facility] ([id number]) [address], [address] [place], [place] [address]Ljjf nitrogen [Mass/Vol]36 mg/dLHigh5-23[facility] Comment on above:Performed By: #### CBCA, CMP, 21652-4, 18174-7, TSHR, 11610-7, 2777-1, 2639-3, 2157-6, 3024-7 #### [facility] ([id number]) [address] [place] [address], [address] [place], [place] [address]QUY [Mass/Vol]on 64-27-0266Fbuunuswgcvnsr and review of laboratory resultsAbnoGeisinger-Shamokin Area Community HospitalC REACTIVE PROTEIN5.1 mg/dLHigh0.000-0.744PEast Liverpool City HospitalComment on above:Performed By: #### CBCA, CMP, 26484-7, 13240-6, TSHR, 48851-7, 2777-1, 2639-3, 2157-6, 3024-7 #### [facility] ([id number]) [address] [place] [address], [address] [place], [place] [address]Gdoarxs.ionized (Bld) [Mass/Vol]on 09-14-0210GbiItbpmr Health SystemIONIZED CALCIUM4.8 mg/dLNormal4.5-5.3PEast Liverpool City HospitalComment on above:Performed By: #### CBCA, CMP, 36032-7, 38887-7, TSHR, 88057-5, 2777-1, 2639-3, 2157-6, 3024-7 #### [facility] ([id number]) [address] [place] [address], [address] [place], [place] [address]Jseduigilovuwp and review of laboratory resultsAbnoAscension Columbia Saint Mary's Hospital SystemIONIZED CALCIUM4.3 mg/dLLow4.5-5.3PEast Liverpool City HospitalComment on above:Performed By: #### CBCA, CMP, 91975-9, 45327-0, TSHR, 57028-8, 2777-1, 2639-3, 2157-6, 3024-7 #### [facility] ([id number]) [address] [place] [address], [address] [place], [place] [address]Qwwqcrhkzy C3 [Mass/Vol]on 09-07-0710HJXVFVWXXW C3104 mg/dL Lztgcg42-297VlrVnssdlCherrington HospitalComment on above:Performed By: #### CBCA, CMP, 70007-9, 59373-1, TSHR, 23815-3, 2777-1, 2639-3, 2157-6, 3024-7 #### [facility] ([id number]) [address] [place] [address], [address] [place], [place] [address]Rxbzmemaxt C4 [Mass/Vol]on 64-97-9464AKGKZFUEMF C435 mg/dLNormal 16-47ProCherrington HospitalComment on above:Performed By: #### CBCA, CMP, 53402-4, 89838-6, TSHR, 81308-7, 2777-1, 2639-3, 2157-6, 3024-7 #### [facility] ([id number]) [address] [place] [address], [address] [place], [place] [address]Enfkncfotubfn metabolic panelon 03-38-9188BEY No additional P-5'-P [Catalytic activity/Vol]1426 U/LHigh0 - 31 U/[facility] HospitaleGFR (CKD-EPI)non-race xgytowvde84Rzx- [facility] CenterInterpretation and review of laboratory resultsAbnormHolzer HospitalCreatinine (U) [Mass/Vol]on 06-77-2185NhoKodxhqAdena Pike Medical CenterURINE CREATININE,RDM36.52 mg/dL NormalCincinnati Shriners HospitalComment on above:Performed By: #### CBCA, CMP, 85274-7, 12140-0, TSHR, 18672-3, 2777-1, 2639-3, 2157-6, 3024-7 #### [facility] ([id number]) [address] [place] [address], [address] [place], [place] [address]VAFITROJGMK IN PROCESS EEG TESTINGOrdered By: Documentation Systemgenerated on 28-09-6601DzdStxtzsAdena Pike Medical Center Work Phone: ENA PANELon 19-79-6082ZPWR-SMITH AB IGG<0.2Normal<1.0 ProMedica Hassan HospitalComment on above:Performed By: #### CBCA, CMP, 29990-5, 88657-2, TSHR, 29693-7, 2777-1, 2639-3, 2157-6, 3024-7 #### [facility] ([id number]) [address], [address] [place], [place] [address]WB8 ANTIBODY<0.2Normal<1.0ProMedica Hassan HospitalComment on above:Performed By: #### CBCA, CMP, 10442-2, 48235-6, TSHR, 57770-0, 2777-1, 2639-3, 2157-6, 3024-7 #### [facility] ([id number]) [address], [address] [place], [place] [address]TRO ANTIBODY IGG<0.2Normal<1.0ProMedica Hassan HospitalComment on above:Performed By: #### CBCA, CMP, 35920-5, 27460-0, TSHR, 44495-5, 2777-1, 2639-3, 2157-6, 3024-7 #### [facility] ([id number]) [address], [address] [place], [place] [address]RMS 70 ANTIBODY<0.2Normal<1.0ProMedica Hassan HospitalComment on above:Performed By: #### CBCA, CMP, 78959-9, 07343-3, TSHR, 34912-8, 2777-1, 2639-3, 2157-6, 3024-7 #### [facility] ([id number]) [address], [address] [place], [place] [address]KYR ANTIBODY<0.2Normal<1.0ProMedica Hassan HospitalComment on above:Performed By: #### CBCA, CMP, 03778-7, 15945-4, TSHR, 34950-5, 2777-1, 2639-3, 2157-6, 3024-7 #### [facility] ([id number]) [address] [place], [place] [address]VOC ANTIBODY<0.2Normal<1.0ProCherrington HospitalComment on above:Performed By: #### CBCA, CMP, 49332-6, 41008-3, TSHR, 73137-2, 2777-1, 2639-3, 2157-6, 3024-7 #### [facility] ([id number]) [address] [place], [place] [address]Ulcmwncwuul PCRon 76-70-4635Hpxgukqqwri PCR, PNegativeNormal NegativeProCherrington HospitalComment on above:Result Comment: NOTE ADDITIONAL INFORMATION This test was developed and its performance characteristics determined by [facility] in a manner consistent with CLIA requirements. This test has not been cleared or approved by the U.S. Food and Drug Administration. Test Performed by: [place] [address] Engagement Executive: Ulysses Juarez Ph.D.; CLIA# [id number] PANELon 11-06-2024 Gastrointestinal pathogens DNA and RNA panel JACKSON+non-probe (Stl)SPECIMEN SOURCE STOOL CAMPYLOBACTER Not detected (qualifier value) [...] detected (qualifier value) SAPOVIRUS Not detected (qualifier value)NormalNDETProCherrington HospitalComment on above:Performed By: #### CBCA, CMP, 00340-0, 36855-8, TSHR, 33255-2, 2777-1, 2639-3, 2157-6, 3024-7 #### [facility] ([id number]) [address], [address] [place], [place] [address]Owhvmiqahaomzsbx pathogens DNA and RNA panel JACKSON+non-probe (Stl) on 56-69-9315Wuathoitrj 40+41 DNA JACKSON+non-probe Ql (Stl)Not detectedNot Detected^Not DetectedAdena Pike Medical CenterAstrovirus subtypes 1-8 RNA JACKSON+non- probe Ql (Stl)Not detectedNot Detected^Not DetectedOhioHealth Grady Memorial Hospital. cayetanensis DNA JACKSON+non-probe Ql (Stl)Not detectedNot Detected^Not Detected Ad[facility]ike Medical CenterC. coli+jejuni+upsaliensis DNA JACKSON+non-probe Ql (Stl)Not detectedNot Detected^Not DetectedAdena Pike Medical CenterCryptosporidium sp DNA JACKSON+non-probe Ql (Stl)Not detectedNot Detected^Not DetectedAdena Pike Medical CenterE. coli enteroaggregative Sweetie plasmid aggR+aatA genes JACKSON+non-probe Ql (Stl)Not detectedNot Detected^Not DetectedAdena Pike Medical CenterE. coli enteropathogenic eae gene JACKSON+non-probe Ql (Stl)Not detectedNot Detected^Not DetectedAdena Pike Medical CenterE. coli enterotoxigenic ltA+st1a+st1b genes JACKSON+non-probe Ql (Stl)Not detectedNot Detected^Not DetectedAdena Pike Medical CenterE. coli stx1+stx2 genes JACKSON+non-probe Ql (Stl)Not detectedNot Detected^Not DetectedAdena Pike Medical CenterE. histolytica DNA JACKSON+non-probe Ql (Stl)Not detectedNot Detected^Not DetectedAdena Pike Medical CenterG. lamblia DNA JACKSON+non- probe Ql (Stl)Not detectedNot Detected^Not DetectedAdena Pike Medical Center Norovirus genogroup I+II RNA JACKSON+non-probe Ql (Stl)Not detectedNot Detected^Not DetectedAdena Pike Medical CenterP. shigelloides DNA JACKSON+non-probe Ql (Stl)Not detectedNot Detected^Not DetectedAdena Pike Medical CenterRotavirus A RNA JACKSON+non- probe Ql (Stl)Not detectedNot Detected^Not DetectedUNC Health Rockingham. enterica+bongori DNA JACKSON+non-probe Ql (Stl)Not detectedNot Detected^Not Detected [facility] Health Rockinghamapovirus genogroups I+II+IV+V RNA JACKSON+non-probe Ql (Stl) Not detectedNot Detected^Not DetectedUNC Health Rockinghamhigella species+EIEC invasion plasmid antigen H ipaH gene JACKSON+non-probe Ql (Stl)Not detectedNot Detected^Not DetectedUNC Health Rockinghampecimen source Nom (Body fld)STOOLProLutheran HospitalV. cholerae DNA JACKSON+non-probe Ql (Stl)Not detectedNot Detected^Not DetectedAdena Pike Medical CenterV. cholerae+parahaemolyticus+vulnificus DNA JACKSON+non-probe Ql (Stl)Not detectedNot Detected^Not DetectedAdena Pike Medical CenterY. enterocolitica DNA JACKSON+non-probe Ql (Stl)Not detectedNot Detected^Not DetectedAllegheny General HospitalGlomerular basement membrane IgG Qn (S)on 34-29-1175TBS IgG Ab<0.2 Normal<1.0C[facility] Shriners HospitalComment on above:Performed By: #### CBCA, CMP, 72440-0, 69016-5, TSHR, 74573-6, 2777-1, 2639-3, 2157-6, 3024-7 #### [facility] ([id number]) [address] [place] [address], [address] [place], [place] [address]Bkthdwh Glucometer (BldC) [Mass/Vol]on 47-88-1399Ftscrjq [Mass/Vol]142 mg/jQLujn55 - 99 mg/dLAdena Pike Medical CenterInterpretation and review of laboratory resultsAbnormalProIndiana Regional Medical CenterGlucose [Mass/Vol]142 mg/oENdeh14-13PopClnmueCherrington HospitalGlucose [Mass/Vol]120 mg/oYMwqh32 - 99 mg/dLAdena Pike Medical CenterGlucose [Mass/Vol]142 mg/lIPzro58 - 99 mg/dLAdena Pike Medical CenterInterpretation and review of laboratory resultsAbnormalAllegheny General HospitalGlucose [Mass/Vol]142 mg/rQExws89-96GfhZpqsudCherrington HospitalGlucose [Mass/Vol]120 mg/dL Xmzv99-42CbaEkisrqCincinnati Shriners HospitalGlucose [Mass/Vol]150 mg/cMFyqu24 - 99 mg/dL [facility] CenterInterpretation and review of laboratory resultsAbnormal [facility] HospitalGlucose [Mass/Vol]150 mg/dLHigh 65-99[facility] HospitalHIV 1&2 AB/AG Screen (P24 AG)on 37-20-1897VUB 1+2 Ab+HIV1 p24 Ag IA KaEvy-DlsowomjZwq-Lxcdptdy^Non-ReactiveAdena Pike Medical Center HIV 1+2 Ab+HIV1 p24 Ag IA Qlon 85-88-0797MdnOilezaAdena Pike Medical CenterHIV 1 and 2 Ab/Ag ScreenNon-ReactiveNormflNRBellevue HospitalComment on above: Result Comment: NEW TEST METHOD [...] the release of HIV test results or diagnoses.Performed By: #### CBCA, CMP, 72591-9, 67361-9, TSHR, 59351-6, 2777-1, 2639-3, 2157-6, 3024-7 #### [facility] ([id number]) [address], [address] [place], [place] [address]Scadcqp calciumon 03-03-0152Hqsivfn.ionized (Bld) [Mass/Vol]4.8 mg/dL4.5 - 5.3 mg/dLAdena Pike Medical CenterCalcium.ionized (Bld) [Mass/Vol]4.3 mg/dLLow4.5 - 5.3 mg/dLAdena Pike Medical CenterLDHon 11-21-9802JGG [Catalytic activity/Vol]2584 U/DPggp659 - 235 U/LPrKnox Community HospitalLDH [Catalytic activity/Vol]on 03-30-0704Elpolgmgrgkakz and review of laboratory results AbnormalAllegheny General HospitalLDH2584 U/GKaql223-085 [facility] CenterComment on above:Performed By: #### CBCA, CMP, 23616-1, 11992-0, TSHR, 21138-7, 2777-1, 2639-3, 2157-6, 3024-7 #### [facility] ([id number]) [address] [place] [address], [address] [place], [place] [address]Jiolhprmcg - Chemistry and Chemistry - challengeon 11-06-2024 Sodium (U) [Moles/Vol]44 mmol/LNormalAdena Pike Medical CenterComment on above: Performed By: #### CBCA, CMP, 39538-3, 80838-0, TSHR, 83408-6, 2777-1, 2639-3, 2157-6, 3024-7 #### [facility] ([id number]) [address] [place] [address], [address] [place], [place] [address]Ogotyuqvl [Mass/Vol]2.1 mg/dLNormal1.8-2.6Mary[facility] Hospital SystemComment on above:Performed By: #### CBCA, CMP, 18254-4, 29884-2, TSHR, 08660-7, 2777-1, 2639-3, 2157-6, 3024-7 #### [facility] ([id number]) [address] [place] [address], [address] [place], [place] [address]Nyxaagdcf [Mass/Vol]4.6 mg/dLNormal2.4-4.9Mary[facility] Hospital SystemComment on above:Performed By: #### CBCA, CMP, 36205-8, 52017-4, TSHR, 00106-9, 2777-1, 2639-3, 2157-6, 3024-7 #### [facility] ([id number]) [facility], [address] [place], [place] [address]Iruekjsjgf - Microbiology and Antimicrobial susceptibilityon 11-06-2024. difficile toxin genes JACKSON+probe Ql (Stl)NegativePresumptive Negative^Presumptive NegativeProLutheran HospitalMyoglobin [Mass/Vol]on 65-45-7412Xafpavnztszcgm and review of laboratory resultsAbnormalProIndiana Regional Medical CenterMyoglobin, serumon 49-16-4220Ktaizzehm [Mass/Vol]2074.5 ng/kYPbkt97.3 - 65.8 ng/mLAdena Pike Medical CenterNo Panel Informationon 62-34-5037HwaFeepzaIndiana Regional Medical CenterNuclear Ab IA Ql (S)on 48-39-6184VPS Screen w/reflexNegativeNormalNEGProCherrington HospitalComment on above:Result Comment: Testing performed using multiplex flow immunoassay. Eleven different antigens associated with systemic autoimmune diseases (dsDNA,Sm,Sm/PAN CLEANER,PAN CLEANER,Chromatin, SSA,SSB,Oma-1,Scl70,Ribo P,Centromere B) are included in this screening test.Performed By: #### CBCA, CMP, 61025-1, 74121-3, TSHR, 82754-9, 2777-1, 2639-3, 2157-6, 3024-7 #### [facility] ([id number]) [facility] [facility], [address] [place], [place] [address]JMYUVIXPGgq 84-96-1479Noeffmfqc [Moles/Vol]4.2 mmol/LNormal 3.5-5.0ProCherrington HospitalComment on above:Performed By: #### CBCA, CMP, 35095-6, 97968-0, TSHR, 51102-2, 2777-1, 2639-3, 2157-6, 3024-7 #### [facility] ([id number]) [address] [place] [address], [address] [place], [place] [address]TCPQICV CREAT RATIOon 64-37-4685DKTCZQ URINE PUVZSOF070 mg/LHigh <120ProCherrington HospitalComment on above:Performed By: #### IJEOMA, SYED, 47198-6, 10727-3, TSHR, 62237-8, 2777-1, 2639-3, 2157-6, 302-7 #### [facility] ([id number]) [address], [address] [place], [place] [address]W/PRO/MINE ENGINEERING SUPERINTENDENT RATIO CALC2.45High<0.2PEast Liverpool City HospitalComment on above:Result Comment: Nephrotic Syndrome is associated with ratios >3.5 Performed By: #### SYED RAPHAEL, 58655-6, 43919-6, TSHR, 53732-9, 2777-1, 2639-3, 2156-6, 3023-7 #### [facility] ([id number]) [address], [address] [place], [place] [address]OPITG CREATININE,RDM36.36 mg/dLNormalProCherrington Hospital Comment on above:Performed By: #### SYED RAPHAEL, 26892-9, 88766-5, TSHR, 11279-0, 2777-1, 2639-3, 2156-6, 3023-7 #### [facility] ([id number]) [address], [address] [place], [place] [address]Cextuncypws 30-08-6473Bywebyoob [Moles/Vol]4.2 mmol/L3.5 - 5.0 mmol/LProMedBlanchard Valley Health System Blanchard Valley HospitalPotassium [Moles/Vol]on 41-05-8100ZnyKwkicvJ.W. Ruby Memorial HospitalERUM PROTEIN ELECTROPHORESISon 69-28-0482BKPNTRELLKSSIA CREDITEDNormal 3.4-5.3PEast Liverpool City HospitalComment on above:Result Comment: QUANTITY NOT SUFFICIENTPerformed By: #### IJEOMA, SYED, 35892-1, 24916-9, TSHR, 66641-6, 2777-1, 2639-3, 2157-6, 302-7 #### [facility] ([id number]) [address] [facility], [address] [place], [place] [address]TNCZI 1 GLOBULINREQUEST CREDITEDNormal0.1-0.4ProMercy Health St. [facility] HospitalComment on above:Result Comment: QUANTITY NOT SUFFICIENTPerformed By: #### CBCA, CMP, 52194-5, 74191-0, TSHR, 29740-3, 2777-1, 2639-3, 2157-6, 3024-7 #### [facility] ([id number]) [address] [facility], [address] [place], [place] [address]LOLUE 2 GLOBULINREQUEST CREDITEDNormal0.4-1.1ProMedProtestant Hospital HospitalComment on above:Result Comment: QUANTITY NOT SUFFICIENTPerformed By: #### CBCA, CMP, 47143-2, 37714-2, TSHR, 41089-7, 2777-1, 2639-3, 2157-6, 3024-7 #### [facility] ([id number]) [address] [facility], [address] [place], [place] [address]HJIA GLOBULINREQUEST CREDITEDNormal0.5-1.2ProMedProtestant Hospital HospitalComment on above:Result Comment: QUANTITY NOT SUFFICIENTPerformed By: #### CBCA, CMP, 69617-4, 40936-0, TSHR, 87587-9, 2777-1, 2639-3, 2157-6, 3024-7 #### [facility] ([id number]) [address] [facility] [address] [facility], [address] [place], [place] [address]PNTLM GLOBULINREQUEST CREDITEDNormal0.5-1.6ProMercy Health St. [facility] HospitalComment on above:Result Comment: QUANTITY NOT SUFFICIENTPerformed By: #### CBCA, CMP, 41672-6, 82989-2, TSHR, 12045-2, 2777-1, 2639-3, 2157-6, 3024-7 #### [facility] ([id number]) [address] [place] [address] [address] [place], [place] [address]ZNBA. ELECTROPHORESIS INTERPREQUEST CREDITEDNoKettering HealthComment on above:Result Comment: QUANTITY NOT SUFFICIENTPerformed By: #### IJEOMA, CMP, 47219-7, 54472-1, TSHR, 51197-4, 2777-1, 2639-3, 2157-6, 3024-7 #### [facility] ([id number]) [address] [facility], [address] [place], [place] [address]Bvylmes [Mass/Vol]6.3 g/dLNormal6.0-8.0[facility] Comment on above:Result Comment: REQUEST CREDITED QUANTITY NOT SUFFICIENTPerformed By: #### IJEOMA, SYED, 37154-1, 32730-6, TSHR, 13020-5, 2777-1, 2639-3, 2157-6, 3024-7 #### [facility] ([id number]) [address] [facility], [address] [address]Inhcry (U) [Moles/Vol]on 42-92-9035TtiSqtike Health System URINALYSISon 91-09-6307Bnpjkvfei Ql (U)NegativeNormalNEGMarymount Hospital System Comment on above:Performed By: #### IJEOMA, SYED, 96927-0, 84960-8, TSHR, 37478-0, 2777-1, 2639-3, 2157-6, 3024-7 #### [facility] ([id number]) [address] [place] [address] [address] [place], [place] [address]Ukswx (U)YELLOWNormalYELLOWMarymount Hospital SystemComment on above:Performed By: #### ANISHA, CMP, 51956-9, 44562-8, TSHR, 79138-7, 2777-1, 2639-3, 2157-6, 3024-7 #### [facility] ([id number]) [address] [facility] [address] [place], [place] [address]tF (U)6.5 [pH]Normal5.0-8.5PNationwide Children's HospitalComment on above:Performed By: #### CBCA, CMP, 47891-3, 74331-6, TSHR, 74588-6, 2777-1, 2639-3, 2157-6, 3024-7 #### [facility] ([id number]) [address], [address] [place], [place] [address]WIRKR/HGBLargeAbnormalNEGProMedica Gold Beach HospitalComment on above:Performed By: #### CBCA, CMP, 38269-2, 80782-0, TSHR, 47470-8, 2777-1, 2639-3, 2157-6, 3024-7 #### [facility] ([id number]) [address], [address] [place], [place] [address]Lfkixqn Ql (U)NegativeNormalNEGProPomerene Hospitalca [place] Beach HospitalComment on above:Performed By: #### CBCA, CMP, 83444-6, 89411-5, TSHR, 40366-4, 2777-1, 2639-3, 2157-6, 3024-7 #### [facility] ([id number]) [address], [address] [place], [place] [address]Jsllqca Ql (U)NegativeNormalNEGProPomerene Hospitalca [place] Beach HospitalComment on above:Performed By: #### CBCA, CMP, 79664-7, 88411-5, TSHR, 86428-2, 2777-1, 2639-3, 2157-6, 3024-7 #### [facility] ([id number]) [address], [address] [place], [place] [address]Uxjfupgfc esterase Test strip Ql (U)NegativeNormalNEGProMedica Gold Beach HospitalComment on above:Performed By: #### CBCA, CMP, 55462-1, 32605-8, TSHR, 15564-4, 2777-1, 2639-3, 2157-6, 3024-7 #### [facility] ([id number]) [address], [address] [place], [place] [address]Qvnfhmw Ql (U)NegativeNormalNEGProMedica Gold Beach HospitalComment on above:Performed By: #### CBCA, CMP, 22701-6, 26188-4, TSHR, 21489-5, 2777-1, 2639-3, 2157-6, 3024-7 #### [facility] ([id number]) [address], [address] [place], [place] [address]Pwvamnu Ql (U)70 mg/dLAbnormalNEGProPomerene Hospitalca [facility] Comment on above:Performed By: #### CBCA, CMP, 73207-7, 99263-5, TSHR, 49236-5, 2777-1, 2639-3, 2156-6, 3023- #### [facility] ([id number]) [address], [address] [place], [place] [address]N.B.CELLS<6Xsuvdf5-0MlcHuedtd [place] Beach HospitalComment on above: Performed By: #### CBCA, CMP, 08004-1, 06569-4, TSHR, 15223-3, 2777-1, 2639-3, 7-6, 3023- #### [facility] ([id number]) [address], [address] [place], [place] [address]Rjslfdqa gravity (U) [Rel density]1.253Ewbuym6.003-1.035 ProMedica [facility] Beach HospitalComment on above:Performed By: #### CBCA, CMP, 63353-7, 67281-2, TSHR, 53085-4, 2777-1, 2639-3, 2157-6, 4-7 #### [facility] ([id number]) [address], [address] [place], [place] [address]MRRBABVI EPITHELIUM<8Lvmcez1-8ZanApcqdp [place] HospitalComment on above:Performed By: #### CBCA, CMP, 13545-9, 88763-8, TSHR, 14305-1, 2777-1, 2639-3, 2157-6, 3024-7 #### [facility] ([id number]) [address], [address] [place] [address]PFFRTHRVMNSXJUWgatuyJMFVJZuaUyaaxa [place] HospitalComment on above:Performed By: #### CBCA, CMP, 11530-0, 51657-4, TSHR, 22315-9, 2777-1, 2639-3, 2157-6, 3024-7 #### [facility] ([id number]) [address], [address] [place] [address]Jdnguyavxl dipstick W Reflex Microscopic panel (U)URINE RECEIVED WITHOUT PRESERVATIVE-DELAYS IN TRANSPORT MAY AFFECT RESULTS.INTERPRET WITH CAUTION AND CLINICAL CORRELATION IS RECOMMENDED.NormalCincinnati Shriners Hospital Comment on above:Performed By: #### CBCA, CMP, 36101-9, 41740-8, TSHR, 21888-6, 2777-1, 2639-3, 2157-6, 3024-7 #### [facility] ([id number]) [address], [address] [address]Ugtlfxdstpit (U) [Mass/Vol]mg/dLNormal<1.1PEast Liverpool City HospitalComment on above:Performed By: #### CBCA, CMP, 24243-3, 45708-3, TSHR, 33675-9, 2777-1, 2639-3, 2157-6, 3024-7 #### [facility] ([id number]) [address], [address] [place] [address]H.B.CELLS1 /hpfNormal0-5PEast Liverpool City HospitalComment on above:Performed By: #### CBCA, CMP, 94799-4, 92110-4, TSHR, 94016-8, 2777-1, 2639-3, 2157-6, 3024-7 #### [facility] ([id number]) [address] [facility] [address] [facility], [address] [place], [place] [address]Gnzfgrilrlpk 29-43-2059Xaquxuvqnr cells Auto (Urine sed) [#/Area][facility] Hospital SystemGlucose (U) [Mass/Vol]NegativeNegative^Negative mg/dLAdena Pike Medical CenterHemoglobin Auto test strip Ql (U)LargeAbnormal Negative^NegativeMarymount Hospital SystemInterpretation and review of laboratory resultsAbnormalProInfirmary Ltac Hospital Health SystemKetones (U) [Mass/Vol]Negative Negative^Negative mg/dLMarymount Hospital SystemLeukocyte esterase Auto test strip Ql (U)NegativeNegative^NegativeAdena Pike Medical CenterNitrite Auto test strip Ql (U)NegativeNegative^NegativeSelect Medical Specialty Hospital [facility] Board[facility], Inc Health SystemProtein (U) [Mass/Vol]70 mg/dLAbnormalNegative^NegativeMarymount Hospital SystemRBC Auto (Urine sed) [#/Area][facility] Health Rockinghampecific gravity Refractometry automated (U) [Rel density]1.0091.003 - 1.035Marymount Hospital SystemTurbidity Ql (U)CLEAR CLEAR^CLEARMarymount Hospital SystemUrinalysis microscopic panel Auto (Urine sed) [#/Area]URINE RECEIVED WITHOUT PRESERVATIVE-DELAYS IN TRANSPORT MAY AFFECT RESULTS.INTERPRET WITH CAUTION AND CLINICAL CORRELATION IS RECOMMENDED.[facility] Hospital SystemUrobilinogen Qn (U)NINFPNationwide Children's HospitalWBC Auto (Urine sed) [#/Area]1PChillicothe Hospital SystemMarymount Hospital SystemUrine Creatinine,Rdmon 53-31-3675Kifcrtlmjs (U) [Mass/Vol]36.52 mg/dLMarymount Hospital SystemUrine protein creatinine ratioon 09-35-6104Ibphbllkog (U) [Mass/Vol]36.36 mg/dL [facility] SystemInterpretation and review of laboratory resultsAbnormal ProMbaptist medical center south Health SystemProtein (U) [Mass/Vol]890 mg/LHighNINF - 120 mg/L ProMRed [facility] Hospital SystemProtein/Creatinine (U) [Ratio]2.45HighNINF - 0.2PAscension St. Michael Hospital SystemACUTE HEPATITIS PANELon 98-37-9243ZRHR HCV W/PCR REFLXNon-ReactiveNormalNRCTProPomerene Hospitalca [place] HospitalComment on above: Result Comment: NEW TEST METHOD NOTE If recent infection suspected, recommend repeat testing (>2 months). Gdfjbt-kd-fikdle ratio is <1.00.Performed By: #### CBCA, CMP #### [facility] ([id number]) [address], [address] [place], [place] [address]FQYPIHBYT A IGMNon-ReactiveNormalCTCincinnati Shriners Hospital Comment on above:Result Comment: NEW TEST METHODPerformed By: #### CBCA, CMP #### [facility] ([id number]) [address], [address] [place], [place] [address]EJWRSFUHF B CORE IGMNon-ReactiveNoBanner MD Anderson Cancer CenterCTMercy Health Anderson Hospital HospitalComment on above:Result Comment: NEW TEST METHODPerformed By: #### CBCA, CMP #### [facility] ([id number]) [address], [address] [place], [place] [address]MNBIZRVHG B SURF AGNon-ReactiveNormalCTMercy Health Anderson Hospital HospitalComment on above:Result Comment: NEW TEST METHODPerformed By: #### CBCA, CMP #### [facility] ([id number]) [address], [address] [place], [place] [address]MVMKITKC BLOOD GASon 75-48-3519QLYCS'S TESTPassNormalProPomerene Hospitalca [place] Beach HospitalComment on above:Performed By: #### ABG ####[facility] ([id number])[address] [place], [place] [address]MWCQ,DEFICIT9.0 MMOL/L High0.0-2.0ProPomerene Hospitalca Gold Beach HospitalComment on above:Performed By: #### ABG ####[facility] ([id number])[address] [place], [place] [address]Dpsd tablotoucfe65.6 [degF]Pwtvhc73.0ProMedica Hassan HospitalComment on above: Performed By: #### ABG ####[facility] ([address] [place] [address] [place], [place] [address]GNQ0 (Bld) [Moles/Vol]17.0 mmol/YUis51-66TijPtaamu Hassan HospitalComment on above:Performed By: #### ABG ####[facility] ([address] [place] [address] [place], [place] [address]SWUJ. O2 CONC.21 %NormalProMedica Hassan HospitalComment on above:Performed By: #### ABG ####[facility] ([address] [place] [address] [place], [place] [address]Xsoqgz (Bld) [Partial pressure]38 mm[Hg]Critically tkw85-196OhbItkler Hassan HospitalComment on above: Performed By: #### ABG ####[facility] ([address] [place] [address] [place], [place] [address]Jegfqh saturation in Blood65.0 %Low>90ProMedica Hassan HospitalComment on above:Performed By: #### ABG ####[facility] ([address] [place] [address])[address] [place], [place] [address]LIBHBK SOURCERoomAirNormalProMedica Hassan HospitalComment on above:Performed By: #### ABG ####[facility] ([address] [place] [address] [place], [place] [address]NXN761.3 FRSIPgdcgj77-29 ProMedica Hassan HospitalComment on above:Performed By: #### ABG ####[facility] ([address] [place] [address])[address] [place], [place] [address]gQ (Bld)7.279 [pH]Low7.350-7.450ProMedica Hassan HospitalComment on above:Performed By: #### ABG ####[facility] ([address] [place] [address])[address] [place] [address] SAMPLE SITERRadNormalProMedica Hassan HospitalComment on above:Performed By: #### ABG ####[facility] ([id number])[address] [place], [place] [address]GKIHEJ TYPEARTERIALNormalProMedica Hassan HospitalComment on above: Performed By: #### ABG ####[facility] ([id number])[address] [place], [place] [address]QBIUE METABOLIC PANLon 24-05-9696Cqpor gap [Moles/Vol]10 mmol/LNormal5-15ProMedica Hassan HospitalComment on above:Performed By: #### BMP ####[facility] ([id number])[address], [address] [address]Gyuwmzr [Mass/Vol]7.7 mg/dLLow8.5-10.5ProMedica Hassan HospitalComment on above:Performed By: #### BMP ####[facility] ([id number])[address], [address], [place] [address]Wumqokku [Moles/Vol]105 mmol/ZYpeawj29-946LycEcqeld Hassan HospitalComment on above:Performed By: #### BMP ####[facility] ([id number])[address], [address], [place] [address]SF[address] [Moles/Vol]24 mmol/RGctezj16-30GenVcgbea Hassan Hospital Comment on above:Performed By: #### BMP ####[facility] ([id number])[address], [address], [place] [address]Ulxkgqiiwt [Mass/Vol]2.43 mg/dLHigh0.40-1.00ProMedica Hassan HospitalComment on above:Result Comment: METHOD TRACEABLE TO IDMS STANDARDPerformed By: #### BMP ####[facility] ([id number])[address] [address]KDS/1.73 sq M.predicted among non-blacks MDRD (S/P/Bld) [Vol rate/Area]28 mL/min/{1.73_m2} Low>59ProCherrington HospitalComment on above:Result Comment: Reported eGFR is based on the CKD-EPI 2020 equation that does not use a race coefficient.Performed By: #### BMP ####[facility] ([id number])[address] [address]Ufpupts [Mass/Vol]105 mg/uUMrdz55-31XmgCwqkxrCherrington HospitalComment on above:Performed By: #### BMP ####[facility] ([id number])[address] [address]Gomysnjmh [Moles/Vol]4.1 mmol/LNormal3.5-5.0[facility] Comment on above:Performed By: #### BMP ####[facility] ([id number])[address] [address]Nkbygu [Moles/Vol]139 mmol/ANgkmwn627-585QmrRpfoek [place] HospitalComment on above:Performed By: #### BMP ####[facility] ([id number])[address] [address]Dguj nitrogen [Mass/Vol]37 mg/dLHigh5-23ProMercy Health St. [facility] HospitalComment on above:Performed By: #### BMP ####[facility] ([id number])[address] [address]Gyhsnplk Routine EEGon 17-22-3991LTNWNYIV TRANSCRIBED RESULTSBaseline Routine EEGOrdered By: Ray Mina on 93-69-4554KpkFwypjiAdena Pike Medical Center Work Phone: Basic Metabolic Panelon 94-53-0187Piomk gap [Moles/Vol]10 mmol/L5 - 15 mmol/LPrCity Hospital SystemCalcium [Mass/Vol]7.7 mg/dLLow8.5 - 10.5 mg/dLAdena Pike Medical CenterChloride [Moles/Vol]105 mmol/L98 - 109 mmol/[facility] SystemCO2 [Moles/Vol]24 mmol/L22 - 32 mmol/L [facility] CenterCreatinine [Mass/Vol]2.43 mg/dLHigh0.40 - 1.00 mg/dL [facility] Medical CentereGFR (CKD-EPI)non-race qlsnddirf24Mlh- PINMineral Area Regional Medical CenterGlucose [Mass/Vol]105 mg/kMQsgh23 - 99 mg/dLAdena Pike Medical Center Interpretation and review of laboratory resultsAbnoAtrium Health Union Potassium [Moles/Vol]4.1 mmol/L3.5 - 5.0 mmol/[facility] Health SystemSodium [Moles/Vol]139 mmol/L134 - 146 mmol/[facility] SystemUrea nitrogen [Mass/Vol]37 mg/dLHigh5 - 23 mg/dLAllegheny General Hospital Blood Gas, Arterialon 32-90-7268Cewyknvz patency Wrist artery --pre arterial puncturePassAdena Pike Medical CenterBase deficit (Bld) [Moles/Vol]9 mmol/LHigh [facility] CenterCO2 (Bld) [Partial pressure]36.3 mm[Hg][facility] Medical CenterHCO3 (Bld) [Moles/Vol]17 mmol/LLowAdena Pike Medical CenterInterpretation and review of laboratory resultsAbnormHolzer HospitalOxygen (Bld) [Partial pressure]38 mm[Hg]Critically lowAdena Pike Medical CenterOxygen therapy source and amount [CARE]RoomAirProLutheran HospitalOxygen/Inspired gas setting [Volume Fraction] Cfdsxfvwap70 %Aden[facility]ike Medical CenterpH (Bld)7.279 [pH]Low7.350 - 7.450UNC Health Rockinghampecimen site NarrativeRRadUNC Health Rockinghampecimen type Nom (Spec)ARTERIALAllegheny General HospitalCBC AND AUTO DIFFon 24-38-0975Qmza form neutrophils/100 WBC (Bld) 3.8 %[facility] Hospital - DublinComment on above:Performed By: #### CBCA, CMP, 28714-8, 49189-5, TSHR, 87481-7, 2777-1, 2639-3, 2157-6, 3024-7 #### [facility] ([id number]) [address], [address] [place], [place] [address]Uzxfxtpzoku distribution width (RBC) [Ratio]13.7 %Normal 11.5-15.0Cincinnati Shriners HospitalComment on above:Performed By: #### CBCA, CMP, 50939-3, 66329-6, TSHR, 58607-5, 2777-1, 2639-3, 2157-6, 3024-7 #### [facility] ([id number]) [address] [place], [place] [address]Xfutghvlzn (Bld) [Volume fraction]40.0 %Dhnzvh92-70PiyByoyhlCherrington HospitalComment on above:Performed By: #### CBCA, CMP, 06265-2, 07421-5, TSHR, 21468-8, 2777-1, 2639-3, 2157-6, 3024-7 #### [facility] ([id number]) [address], [address] [place], [place] [address]Wntzwtacyk (Bld) [Mass/Vol]13.4 g/cLZnqxvf90.7-15.5PEast Liverpool City HospitalComment on above:Performed By: #### CBCA, CMP, 25236-4, 27417-0, TSHR, 10407-3, 2777-1, 2639-3, 2157-6, 3024-7 #### [facility] ([id number]) [address], [address] [place], [place] [address]Sanlyupxwym (Bld) [#/Vol]1.8 10*3/uLNormal1.0-3.5PEast Liverpool City HospitalComment on above:Performed By: #### CBCA, CMP, 19277-0, 56626-8, TSHR, 11349-9, 2777-1, 2639-3, 2157-6, 3024-7 #### [facility] ([id number]) [address], [address] [place], [place] [address]Afvnzqalqgb/100 WBC (Bld)5.8 %NormalProCherrington Hospital Comment on above:Performed By: #### CBCA, CMP, 78364-6, 49797-0, TSHR, 77883-6, 2777-1, 2639-3, 2157-6, 3024-7 #### [facility] ([id number]) [address] [address] [facility] [place], [place] [address]SUI (RBC) [Entitic mass]29.8 mwClifod72-89RazUzyaae [place] HospitalComment on above:Performed By: #### CBCA, CMP, 72339-8, 90427-7, TSHR, 96770-2, 2777-1, 2639-3, 2157-6, 3024-7 #### [facility] ([id number]) [address], [address] [place], [place] [address]IJZB (RBC) [Mass/Vol]33.4 g/iMNuvxro32-33CyiFleyri [place] HospitalComment on above:Performed By: #### CBCA, CMP, 93347-5, 00427-6, TSHR, 85942-7, 2777-1, 2639-3, 2157-6, 3024-7 #### [facility] ([id number]) [address], [address] [place], [place] [address]UQK (RBC) [Entitic vol]89 bGHepnje85-771MyjDdepts [place] HospitalComment on above:Performed By: #### CBCA, CMP, 91898-8, 68343-0, TSHR, 05050-0, 2777-1, 2639-3, 2157-6, 3024-7 #### [facility] ([id number]) [address], [address] [place], [place] [address]Rgehwhvyp (Bld) [#/Vol]0.9 10*3/uLNormal0-0.9ProCherrington HospitalComment on above:Performed By: #### CBCA, CMP, 66258-5, 77261-0, TSHR, 72666-0, 2777-1, 2639-3, 2157-6, 3024-7 #### [facility] ([id number]) [address] [facility] [place], [place] [address]Anvfhlfcx/100 WBC (Bld)2.9 %NormalProCherrington Hospital Comment on above:Performed By: #### CBCA, CMP, 98243-5, 42641-1, TSHR, 83207-1, 2777-1, 2639-3, 2157-6, 3024-7 #### [facility] ([id number]) [address] [place], [place] [address]Auuqinnofao (Bld) [#/Vol]28.8 10*3/uLHigh1.5-6.6ProCherrington HospitalComment on above:Performed By: #### CBCA, CMP, 74622-8, 36961-7, TSHR, 69718-9, 2777-1, 2639-3, 2157-6, 3024-7 #### [facility] ([id number]) [address], [address] [place], [place] [address]Bbmbcera mean volume (Bld) [Entitic vol]7.5 fLNormal7-12 [facility] Medical CenterComment on above:Performed By: #### CBCA, CMP, 91882-1, 35287-0, TSHR, 22025-6, 2777-1, 2639-3, 2157-6, 3024-7 #### [facility] ([id number]) [address] [place], [place] [address]Cmrtuypqt (Bld) [#/Vol]297 10*3/cZDqmewj271-638QmrQbcnii [place] HospitalComment on above:Performed By: #### CBCA, CMP, 43141-3, 17807-9, TSHR, 83604-6, 2777-1, 2639-3, 2157-6, 3024-7 #### [facility] ([id number]) [address], [address] [place], [place] [address]TTX COUNT4.49 X10E12/LNormal3.80-5.20ProPomerene Hospitalca [facility] Comment on above:Performed By: #### CBCA, CMP, 02143-0, 95709-5, TSHR, 50055-4, 2777-1, 2639-3, 2157-6, 3024-7 #### [facility] ([id number]) [address], [address] [place], [place] [address]IDK morphology finding Nom (Bld)NORMALNormalProPomerene Hospitalca [place] HospitalComment on above:Performed By: #### CBCA, CMP, 18174-5, 19066-2, TSHR, 39595-8, 2777-1, 2639-3, 2157-6, 3024-7 #### [facility] ([id number]) [address], [address] [place], [place] [address]YXH RVAAIRIXPY63.5 %NormalProPomerene Hospitalca [place] HospitalComment on above:Performed By: #### CBCA, CMP, 35631-7, 97931-1, TSHR, 34737-3, 2777-1, 2639-3, 2157-6, 3024-7 #### [facility] ([id number]) [address], [address] [place], [place] [address]BNJ (Bld) [#/Vol]31.5 10*3/uLHigh4.0-11.0Pro[facility] HospitalComment on above:Performed By: #### CBCA, CMP, 76332-5, 49697-0, TSHR, 17209-7, 2777-1, 2639-3, 2157-6, 3024-7 #### [facility] ([id number]) [address] [place], [place] [address]KTV auto differentialon 32-52-4637Chlh form neutrophils/100 WBC (Bld)3.8 %[facility] Pike Medical CenterErythrocyte distribution width (RBC) [Ratio] 13.7 %11.5 - 15.0 %[facility] SystemHematocrit (Bld) [Volume fraction]40 % 35 - 47 %[facility] Medical CenterHemoglobin (Bld) [Mass/Vol]13.4 g/dL11.7 - 15.5 g/dLAdena Pike Medical CenterInterpretation and review of laboratory results AbnormalAdena Pike Medical CenterLymphocytes (Bld) [#/Vol]1.8 10*3/uLAdena Pike Medical CenterLymphocytes/100 WBC (Bld)5.8 %[facility] Medical CenterMCH (RBC) [Entitic mass]29.8 pg27 - 34 pgPNationwide Children's HospitalMCHC (RBC) [Mass/Vol]33.4 g/dL32 - 36 g/dLAdena Pike Medical CenterMCV (RBC) [Entitic vol]89 fL80 - 100 fL [facility] CenterMonocytes (Bld) [#/Vol]0.9 10*3/uLAdena Pike Medical Center Monocytes/100 WBC (Bld)2.9 %[facility] Medical CenterNeutrophils (Bld) [#/Vol]28.8 10*3/uLHighAdena Pike Medical CenterPlatelet mean volume (Bld) [Entitic vol]7.5 fL7 - 12 fLPChillicothe Hospital SystemPlatelets (Bld) [#/Vol]297 10*3/uLAdena Pike Medical CenterPolymorphonuclear cells/100 WBC (Bld)NORMALAdena Pike Medical Center RBC (Bld) [#/Vol]4.49 10*6/uLUNC Health Rockinghamegmented neutrophils/100 WBC (Bld)87.5 %[facility] Medical CenterWBC corrected for nucl RBC Auto (Bld) [#/Vol]31.5HKindred Hospital Pittsburgh Totalon 71-46-0001PV [Catalytic activity/Vol]42261 U/LHigh24 - 170 U/LProMedica [facility] [Catalytic activity/Vol]25259 U/LHigh24 - 170 U/LProMedica [facility] [Catalytic activity/Vol]on 22-37-5886GPT12370 U/GHfsk85-771YtiXglenb Hassan HospitalComment on above:Performed By: #### 2639-3, 2156-6 ####[facility] ([id number])[address], [place] [address]GNV [address] U/FMrri15-173TrpSyrwkz [place] HospitalComment on above:Performed By: #### 2157-6, 2638-3 ####[facility] ([id number])[address], [address] [place] [address]Xpklplifvmxlro and review of laboratory resultsAbnormal [facility] HospitalCPK30734 U/MVzfx70-121XiePiejss [place] HospitalComment on above:Performed By: #### CBCSusie, CMP #### [facility] ([id number]) [address], [address] [place], [place] [address]SKGATBLUFFKYN METABOLIC PANELon 68-99-2838Awtsxmy [Mass/Vol]4.5 g/dLNormal3.2-5.3ProMedProtestant Hospital HospitalComment on above:Performed By: #### CBCA, CMP, 57370-2, 06108-5, TSHR, 23168-6, 2777-1, 2639-3, 7-6, 3024-7 #### [facility] ([id number]) [address], [address] [place], [place] [address]HZY [Catalytic activity/Vol]86 U/NEbxtvv66-218ZbiAkyntq [place] HospitalComment on above:Performed By: #### CBCA, CMP, 05982-9, 71577-8, TSHR, 48932-5, 2777-1, 2639-3, 2157-6, 3024-7 #### [facility] ([id number]) [address], [address] [place] [address]UKM [Catalytic activity/Vol]216 U/LHigh0-31ProMedProtestant Hospital HospitalComment on above:Performed By: #### CBCA, CMP, 34603-6, 91054-4, TSHR, 50777-9, 2777-1, 2639-3, 2157-6, 3024-7 #### [facility] ([id number]) [address], [address] [place], [place] [address]Bakto gap [Moles/Vol]12 mmol/LNormal5-15ProMercy Health St. [facility] HospitalComment on above:Performed By: #### CBCA, CMP, 88771-3, 24563-8, TSHR, 79676-3, 2777-1, 2639-3, 2157-6, 3024-7 #### [facility] ([id number]) [address], [address] [place], [place] [address]KAY [Catalytic activity/Vol]488 U/LHigh0-41ProMercy Health St[address] [facility] HospitalComment on above:Performed By: #### CBCA, CMP, 75969-3, 97387-5, TSHR, 91900-3, 2777-1, 2639-3, 2157-6, 3024-7 #### [facility] ([id number]) [address], [address] [place], [place] [address]Azkheonzf [Mass/Vol]0.4 mg/dLNormal0.3-1.2ProMedProtestant Hospital HospitalComment on above:Performed By: #### CBCA, CMP, 74033-3, 69196-5, TSHR, 65415-3, 2777-1, 2639-3, 2157-6, 3024-7 #### [facility] ([id number]) [address], [address] [place], [place] [address]Levbyuq [Mass/Vol]7.4 mg/dLLow8.5-10.5PEast [facility] Comment on above:Performed By: #### CBCA, CMP, 61218-1, 49913-1, TSHR, 65716-8, 2777-1, 2639-3, 2157-6, 3024-7 #### [facility] ([id number]) [address], [address] [place], [place] [address]Guawcrai [Moles/Vol]108 mmol/USnzuoj35-740AdrHsnhdy [place] HospitalComment on above:Performed By: #### CBCA, CMP, 96071-8, 14403-8, TSHR, 07419-6, 2777-1, 2639-3, 2157-6, 3024-7 #### [facility] ([id number]) [address], [address] [place], [place] [address]ZC1 [Moles/Vol]16 mmol/YPzl21-91DfeOqnniyEast Liverpool City HospitalComment on above:Performed By: #### CBCA, CMP, 51152-4, 39223-2, TSHR, 06970-9, 2777-1, 2639-3, 2157-6, 3024-7 #### [facility] ([id number]) [address], [address] [place], [place] [address]Djqnqggcne [Mass/Vol]2.26 mg/dLHigh0.40-1.00ProCherrington HospitalComment on above:Result Comment: METHOD TRACEABLE TO IDMS STANDARD Performed By: #### CBCA, CMP, 08832-4, 15663-5, TSHR, 14614-0, 2777-1, 2639-3, 2157-6, 3024-7 #### [facility] ([id number]) [address], [address] [place], [place] [address]ITN/1.73 sq M.predicted among non-blacks MDRD (S/P/Bld) [Vol rate/Area]30 mL/min/{1.73_m2}Low>59ProCherrington HospitalComment on above: Result Comment: Reported eGFR is based on the CKD-EPI 2020 equation that does not use a race coefficient.Performed By: #### SYED RAPHAEL, 41485-9, 25556-3, TSHR, 79992-7, 2777-1, 2639-3, 2157-6, 3023-7 #### [facility] ([id number]) [address], [address] [place], [place] [address]Jspbntt [Mass/Vol]104 mg/nJIrhe04-31DyhCacvhtCincinnati Shriners Hospital Comment on above:Performed By: #### SYED RAPHAEL, 55205-2, 08539-6, TSHR, 71331-0, 2777-1, 2639-3, 2157-6, 3023-7 #### [facility] ([id number]) [address], [address] [place], [place] [address]Kaawiubqe [Moles/Vol]4.0 mmol/LNormal3.5-5.0ProCherrington HospitalComment on above:Performed By: #### SYED RAPHAEL, 57344-3, 68389-3, TSHR, 98674-3, 2777-1, 2639-3, 7-6, 3023-7 #### [facility] ([id number]) [address], [address] [place], [place] [address]Xcqitln [Mass/Vol]7.2 g/dLNormal6.0-8.0[facility] Comment on above:Performed By: #### SYED RAPHAEL, 95733-4, 11149-7, TSHR, 32231-9, 2777-1, 2639-3, 2157-6, 3023-7 #### [facility] ([id number]) [address], [address] [place], [place] [address]Rfjymb [Moles/Vol]136 mmol/QOzcqkj179-269LxnBtnibwCincinnati Shriners HospitalComment on above:Performed By: #### CBCA, CMP, 74309-9, 99805-2, TSHR, 07406-8, 2777-1, 2639-3, 2157-6, 3024-7 #### [facility] ([id number]) [address], [address] [place], [place] [address]Ewcm nitrogen [Mass/Vol]37 mg/dLHigh5-23ProCherrington HospitalComment on above:Performed By: #### CBCA, CMP, 17047-1, 43481-1, TSHR, 55060-4, 2777-1, 2639-3, 2157-6, 3024-7 #### [facility] ([id number]) [address] [place], [place] [address]Dbzivxd.ionized (Bld) [Mass/Vol]on 41-05-4181Gctlymmdovqnfh and review of laboratory resultsAbnormalMarymount Hospital SystemProPromedica Fostoria Community Hospital SystemIONIZED CALCIUM4.1 mg/dLLow4.5-5.3PEast Liverpool City HospitalComment on above:Performed By: #### 42973-6 ####[facility] ([id number])[address], [place] [address]Sxohchphpakem metabolic panelon 26-71-7989Diwhjcc [Mass/Vol]4.5 g/dL3.2 - 5.3 g/dLProMedica Health SystemALP [Catalytic activity/Vol]86 U/L39 - 130 U/LProMedica Health SystemALT No additional P-5'-P [Catalytic activity/Vol]216 U/LHigh0 - 31 U/LProMedica Health SystemAnion gap [Moles/Vol]12 mmol/L5 - 15 mmol/LProMedica Health System AST [Catalytic activity/Vol]488 U/LHigh0 - 41 U/LProMedica Health System Bilirubin [Mass/Vol]0.4 mg/dL0.3 - 1.2 mg/dLProMedica Health SystemCalcium [Mass/Vol]7.4 mg/dLLow8.5 - 10.5 mg/dLProInfirmary Ltac Hospital Health SystemChloride [Moles/Vol]108 mmol/L98 - 109 mmol/LProMedica Health SystemCO2 [Moles/Vol]16 mmol/LLow22 - 32 mmol/LProMedica Health SystemCreatinine [Mass/Vol]2.26 mg/dL High0.40 - 1.00 mg/dLProPromedica Fostoria Community Hospital SystemeGFR (CKD-EPI)non-race oxjixivtj91 Low- PINFProMedSamaritan North Health Center SystemGlucose [Mass/Vol]104 mg/yFQzuu36 - 99 mg/dL [facility] SystemPotassium [Moles/Vol]4 mmol/L3.5 - 5.0 mmol/LProMedica Health SystemProtein [Mass/Vol]7.2 g/dL6.0 - 8.0 g/dLProPromedica Fostoria Community Hospital System Sodium [Moles/Vol]136 mmol/L134 - 146 mmol/LProMedica Health SystemUrea nitrogen [Mass/Vol]37 mg/dLHigh5 - 23 mg/dLAdena Pike Medical CenterFREE T4on 11-05-2024 Free T4 [Mass/Vol]0.82 ng/dLNormal0.61-1.60[facility]ers HospitalComment on above:Performed By: #### CBCA, CMP #### [facility] ([id number]) [address] [place] [address], [address] [place], [place] [address]Xsuh T4 [Mass/Vol]on 85-28-4016TatXqvavfLutheran HospitalGlucose Glucometer (BldC) [Mass/Vol]on 25-61-2715Ltsvjhj [Mass/Vol]112 mg/xRSbac74 - 99 mg/dLMarymount Hospital SystemInterpretation and review of laboratory results AbnormalProLutheran HospitalProPromedica Fostoria Community Hospital SystemGlucose [Mass/Vol]112 mg/rCHdcb89-48CrrMczqulCincinnati Shriners HospitalGlucose [Mass/Vol]108 mg/uACuvl57 - 99 mg/dLProPromedica Fostoria Community Hospital SystemInterpretation and review of laboratory results AbnormalProLutheran HospitalProPromedica Fostoria Community Hospital SystemGlucose [Mass/Vol]108 mg/hVKxjc82-02AxfAnmpmeCincinnati Shriners HospitalGlucose [Mass/Vol]105 mg/qZMnsq71 - 99 mg/dLAdena Pike Medical CenterInterpretation and review of laboratory results AbnormalProLutheran HospitalProLutheran HospitalGlucose [Mass/Vol]105 mg/kXZkfs53-42DocBciflnCincinnati Shriners HospitalHepatitis panel, acuteon 90-79-5812WUO IgM IA PmBzw-ZqdxwvybJzl-Zxtlzuhu^Non-ReactiveAdena Pike Medical CenterHBV core IgM IA PzHqm-EnhfkjhyHmx-Pbjtgggp^Non-ReactiveAdena Pike Medical CenterHBV surface Ag IA PnIzj-CfhoasovQcn-Avakplpz^Non-ReactiveAdena Pike Medical CenterHCV Ab IA BaTst-ArbaaojlSbn-Qekrqfsu^Non-ReactiveAdena Pike Medical CenterProLutheran HospitalHolter monitor studyon 60-16-9412NCDSRJBG TRANSCRIBED RESULTSAdena Pike Medical CenterIonized calciumon 02-66-9749Jyjyqta.ionized (Bld) [Mass/Vol]4.1 mg/dLLow4.5 - 5.3 mg/dLAdena Pike Medical CenterL. pneumophila Ag IA Ql (U)on 87-15-1672FekLxwyjzAdena Pike Medical CenterLEGIONELLA URINE AGon 11-05-2024L. pneumophila Ag IA Ql (U)LEGIONELLA URINE AG Negative (qualifier value) NEGATIVE FOR L.PNEUMOPHILA SEROGROUP 1 ANTIGENNormalCincinnati Shriners Hospital Comment on above:Performed By: #### CBCSusie, CMP #### [facility] ([id number]) [address] [place], [place] [address]Nqvzxcg (P nancy) [Moles/Vol]on 66-56-3585DstVogdhvAdena Pike Medical Center LACTATE W/REFLEX1.0 mmol/LNormal0.4-2.0C[facility] Shriners HospitalComment on above:Result Comment: Result did not trigger repeat Lactate, re-order if needed.Performed By: #### CBCA, CMP, 88134-0, 61298-8, TSHR, 79033- 9, 2777-1, 2639-3, 2157-6, 3024-7 #### [facility] ([id number]) [address] [place], [place] [address]Whxfwez w/ Reflexon 82-06-7636Zrypupp (P nancy) [Moles/Vol]1 mmol/L0.4 - 2.0 mmol/LProMedica Health SystemLegionella antigen, urineon 11-05-2024L. pneumophila Ag IA Ql (U)NegativeNegative^NegativeProMedica Mercy Memorial Hospital SystemMAGNESIUMon 22-93-7459Niijpoifq [Mass/Vol]2.5 mg/dLNormal1.8-2.6ProMercy Health St[address] [facility] HospitalComment on above:Performed By: #### CBCA, CMP, 49282-1, 97892-5, TSHR, 34316-4, 2777-1, 2639-3, 2157-6, 3024-7 #### [facility] ([id number]) [address] [facility], [address] [place], [place] [address]FGMQ DNA JACKSON+probe Ql (Unsp spec)on 26-43-3915GfwDgygot Health SystemMRSA PCR NASALon 22-25-1454BHBB DNA JACKSON+probe Ql (Unsp spec)NegativeNormal NEGProMercy Health St. [facility] HospitalComment on above:Performed By: #### CBCA, CMP #### [facility] ([id number]) [address] [facility], [address] [place], [place] [address]Awzzuaahzne 41-63-0344Dnpzowcbu [Mass/Vol]2.5 mg/dL1.8 - 2.6 mg/dLProPromedica Fostoria Community Hospital SystemMrsa Pcr nasal swabon 98-13-6114PFIB DNA JACKSON+probe Ql (Unsp spec)NegativeNegative^NegativeProPromedica Fostoria Community Hospital SystemMyoglobin [Mass/Vol]on 39-47-5191MUTHN PSPHSIXIR6986.5 ng/qBCyla14.3-65.8ProCherrington HospitalComment on above:Performed By: #### 2639-3, 2157-6 ####[facility] ([id number])[address] [facility], [address], [place] [address]RQXVB MYOGLOBIN 3785.4 ng/fABldq85.3-65.8ProMedica Hassan HospitalComment on above:Performed By: #### 2157-6, 2639-3 ####[facility] ([id number])[address], [place] [address]Xtuqpbhqbzkjhp and review of laboratory resultsAbnoShriners Hospitals for Children - PhiladelphiaERUM MYOGLOBIN 6843.0 ng/yENmsx96.3-65.8ProCherrington HospitalComment on above:Performed By: #### CBCA, CMP #### [facility] ([id number]) [address] [place], [place] [address]Vredjhmwo, serumon 53-38-9696Xsbclxbfh [Mass/Vol]3785.4 ng/mL High14.3 - 65.8 ng/mLAdena Pike Medical CenterMyoglobin [Mass/Vol]6843 ng/mLHigh 14.3 - 65.8 ng/mLAdena Pike Medical CenterNo Panel Informationon 11-05-2024 Interpretation and review of laboratory resultsAbnormMonroe Clinic Hospital SystemInterpretation and review of laboratory resultsAbGundersen Lutheran Medical Center SystemPHOSPHORUSon 90-62-4621Tvhezydba [Mass/Vol]6.4 mg/dLHigh2.4-4.9C[facility]ers HospitalComment on above: Performed By: #### CBCA, CMP, 92100-0, 92567-8, TSHR, 64809-9, 2777-1, 2639-3, 2157-6, 3024-7 #### [facility] ([id number]) [address] [place], [place] [address]JUHPNEC AND INRon 81-50-3523DMN Coag (PPP) [Relative time]1.2 {INR}High0.8-1.1ProMedAdena Regional Medical CenterComment on above:Performed By: #### CBCA, CMP #### [facility] ([id number]) [address] [place], [place] [address]SK Coag (PPP) [Time]13.6 sHigh9.8-13.2PEast [facility] Comment on above:Performed By: #### CBCA, CMP #### [facility] ([id number]) [address] [place], [place] [address]Vvvrtexfacgo 28-97-8739Yfmssajko [Mass/Vol]6.4 mg/dLHigh2.4 - 4.9 mg/dLAdena Pike Medical CenterProcalcitoninon 00-95-6380Jmdjzjdtrvkby IA [Mass/Vol]38.12 ng/mLHighNINF - 0.05 ng/mLAdena Pike Medical CenterProcalcitonin IA [Mass/Vol]on 77-86-6686Vahedvlmulnvye and review of laboratory results AbnormalAllegheny General HospitalPROCALCITONIN38.12 ng/mL High<0.05C[facility] Shriners HospitalComment on above:Result Comment: NOTE <0.50 ng/mL - Low risk of severe sepsis and/or septic shock. <2.00 ng/mL - Recommend retesting within 6-24 hours. >2.00 ng/mL - High risk of sepsis and/or septic shock.Performed By: #### CBCA, CMP, 54484-4, 25975-1, TSHR, 48180-1, 2777-1, 2639-3, 2157-6, 3024-7 #### [facility] ([id number]) [address] [place], [place] [address]Arrsymt & INRon 08-61-7188HJZ Coag (PPP) [Relative time]1.2 {INR}HighAdena Pike Medical CenterInterpretation and review of laboratory results AbnormalAdena Pike Medical CenterPT Coag (PPP) [Time]13.6 [facility] SystemRESP PATHOGENS/XSJR-WvY-0jp 68-44-6648Xyxlemfkgce pathogens DNA and RNA panel JACKSON+non-probe (Nph)SPECIMEN SOURCE NASO PHARYNX ADENOVIRUS Not detected (qualifier [...] 2 Not detected (qualifier value) NOTE The [place] Respiratory Panel 2.1 (RP2.1) is a multiplexed [...] evaluating a patient with possible respiratory tract infection.NormalProCherrington HospitalComment on above:Performed By: #### CBCA, CMP #### [facility] ([id number]) [address] [place] [address], [address] [place], [place] [address]Sddiweijdjk pathogens DNA and RNA panel JACKSON+non-probe (Nph)on 68-20-1296Sknagxjsvg DNA JACKSON+non-probe Ql (Nph)Not detectedNot Detected^Not DetectedAdena Pike Medical CenterB. parapertussis MZ1681 DNA JACKSON+non-probe Ql (Nph)Not detectedNot Detected^Not DetectedAdena Pike Medical CenterB. pertussis toxin promoter region JACKSON+non-probe Ql (Nph)Not detectedNot Detected^Not DetectedAdena Pike Medical CenterC. pneumoniae DNA JACKSON+non-probe Ql (Nph)Not detectedNot Detected^Not DetectedAdena Pike Medical CenterFLUAV RNA JACKSON+non-probe Ql (Nph)Not detectedNot Detected^Not DetectedAdena Pike Medical CenterFLUBV RNA JACKSON+non-probe Ql (Nph)Not detectedNot Detected^Not DetectedAdena Pike Medical CenterHCoV 229E RNA JACKSON+non-probe Ql (Nph)Not detectedNot Detected^Not Detected [facility] CenterHCoV HKU1 RNA JACKSON+non-probe Ql (Nph)Not detectedNot Detected^Not DetectedAdena Pike Medical CenterHCoV NL63 RNA JACKSON+non-probe Ql (Nph) Not detectedNot Detected^Not DetectedAdena Pike Medical CenterHCoV OC43 RNA JACKSON+non-probe Ql (Nph)Not detectedNot Detected^Not DetectedAdena Pike Medical CenterhMPV RNA JACKSON+non-probe Ql (Nph)Not detectedNot Detected^Not Detected [facility] CenterM. pneumoniae DNA JACKSON+non-probe Ql (Nph)Not detectedNot Detected^Not DetectedAdena Pike Medical CenterParainfluenza virus 1 RNA JACKSON+non- probe Ql (Nph)Not detectedNot Detected^Not DetectedAdena P[facility] Center Parainfluenza virus 2 RNA JACKSON+non-probe Ql (Nph)Not detectedNot Detected^Not DetectedAdena Pike Medical CenterParainfluenza virus 3 RNA JACKSON+non-probe Ql (Nph) Not detectedNot Detected^Not DetectedAdena Pike Medical CenterParainfluenza virus 4 RNA JACKSON+non-probe Ql (Nph)Not detectedNot Detected^Not DetectedAdena Pike Medical CenterRhinovirus+Enterovirus RNA JACKSON+non-probe Ql (Nph)Not detectedNot Detected^Not DetectedAdena Pike Medical CenterRSV RNA JACKSON+non-probe Ql (Nph)Not detectedNot Detected^Not DetectedUNC Health RockinghamARS-CoV-2 (COVID-19) RNA JACKSON+probe Ql (Resp)Not detectedNot Detected^Not DetectedUNC Health Rockinghampecimen source Nom (Body fld)NASO PHARYNXCass Medical Center PNEUMONIAE AG Uon 11-05-2024S. pneumoniae Ag Ql (U)Negative NormalNEGCincinnati Shriners HospitalComment on above:Performed By: #### CBCA, CMP #### [facility] ([id number]) [address] [place] [address], [address] [place], [place] [address]J Pneumoniae AG, urineon 11-05-2024S. pneumoniae Ag Ql (U) NegativeNegative^NegativeUNC Health Rockingham. pneumoniae Ag Ql (U)on 02-05-5110HikFnafbbAdena Pike Medical CenterT4, freeon 30-19-0828Slrc T4 [Mass/Vol]0.82 ng/dL0.61 - 1.60 ng/dLECU Health Medical Center WITH REFLEXon 87-56-7925CKT4.39 uIU/mLLow0.49-4.67ProCherrington HospitalComment on above:Performed By: #### CBCA, CMP, 13131-0, 23169-9, TSHR, 32486-2, 2777-1, 2639-3, 2157-6, 3024-7 #### [facility] ([id number]) [address] [place] [address], [address] [place], [place] [address]ZHF with Reflexon 20-98-4798Zxvpjnvydqtzeb and review of laboratory resultsAbnormalECU Health Medical Center Qn0.39 m[IU]/LLowProLutheran HospitalProLutheran HospitalVancomycin [Mass/Vol]on 71-82-4719VqtHaffxm Health LczkdsVZJKYWDIXA25.5 ug/mLNormal5.0-40.0C[facility]riners HospitalComment on above:Result Comment: Peak 30-40 ug/mL Trough 5-20 ug/ml Performed By: #### 75784-0 ####[facility] ([id number])[address] [place] [address], [address] [place] [address]KjjQgmplx Health MpixjeWLCGPMRMTA96.4 ug/mLNormal5.0-40.0C[facility] Shriners HospitalComment on above:Result Comment: Peak 30-40 ug/mL Trough 5-20 ug/ml Performed By: #### CBCSusie, CMP #### [facility] ([id number]) [address] [place] [address], [address] [place] [address]Liegiwepzm, randomon 69-45-9886Niogyozkrs [Mass/Vol]10.5 ug/mL 5.0 - 40.0 ug/mLSelect Medical Specialty Hospital [facility] Board[facility], Inc Health SystemVancomycin [Mass/Vol]28.4 ug/mL5.0 - 40.0 ug/mLMarymount Hospital SystemBLOOD CULTUREon 56-18-8134Xsgubnem identified Aer cx Nom (Bld)CULTURE RESULTS NO GROWTH 5 DAYSNoThe Christ HospitalBacteria identified Aer cx Nom (Bld)CULTURE RESULTS NO GROWTH 5 DAYSNormalShelby Memorial HospitalCBC AND AUTO DIFFon 11-04-2024 Band form neutrophils/100 WBC (Bld)5.0 %NormalProMemorial Hermann Greater Heights HospitalComment on above:Performed By: #### CBCA, CMP, 1987-5, 71339-7, 02983-5, 5643-2, 2157-03 #### [facility] ([id number]) [address] [place] [address] 83893Ykcffnoplsr distribution width (RBC) [Ratio]13.6 %Normal 11.5-15.0ProMemorial Hermann Greater Heights HospitalComment on above:Performed By: #### SYED RAPHAEL, 1988-02, , 55621-4, 5642-, 2157-03 #### [facility] ([id number]) [address] [place] [address] 00419Jonxhrrmfe (Bld) [Volume fraction]40.2 %Vxjgzk67-19UdqKqpqbhMemorial Hermann Greater Heights HospitalComment on above:Performed By: #### SYED RAPHAEL, 1988-02, , 75189-6, 5642-, 2157-03 #### [facility] ([id number]) [address] [place] [address] 29139Cnjewqqjut (Bld) [Mass/Vol]13.2 g/xSYqmzuk30.7-15.5PAdena Health SystemComment on above:Performed By: #### SYED RAPHAEL, 1988-02, , 32863-9, 5642-11, 2157-03 #### [facility] ([id number]) [address] [place] [address] 19836Esicbubodhn (Bld) [#/Vol]0.8 10*3/uLLow1.0-3.5PAdena Health SystemComment on above:Performed By: #### SYED RAPHAEL, 1988-02, , 43208- 0, 5642-2, 2157-03 #### [facility] ([id number]) [address] [place] [address] 70037Fomfbpxdpck/100 WBC (Bld)2.0 %NormalProMemorial Hermann [facility] Hospital Comment on above:Performed By: #### SYED RAPHAEL, 1988-02, , 84585-9, 5643-2, 2157-03 #### [facility] ([id number]) [address] [place] [address] 94940XMD (RBC) [Entitic mass]29.5 pzFkmqmr09-27FroPyrucfMemorial Hermann Greater Heights HospitalComment on above:Performed By: #### CBCSusie, SYED, 1988-02, , 48011-2, 5642-2, 2157-03 #### [facility] ([id number]) [address] [place] [address] 04987NXNN (RBC) [Mass/Vol]32.9 g/fBAhkkgf44-96SxrRpjfiiMemorial Hermann Greater Heights HospitalComment on above:Performed By: #### SYED RAPHAEL, 1988-02, , 60719-4, 5642-11, 2157-03 #### [facility] ([id number]) [address] [place] [address] 96247RSH (RBC) [Entitic vol]90 ySKowtsq25-389LgbPijdnq [facility]remont HospitalComment on above:Performed By: #### CBCSYED Richards, 1988-02, , 55319-3, 5642-11, 2157-03 #### [facility] ([id number]) [address] [place] [address] 66966Pfxxhgqfn (Bld) [#/Vol]3.6 10*3/uLHigh0-0.9Shelby Memorial HospitalComment on above:Performed By: #### CBCA, CMP, 1988-02, , 05683-0, 5642-, 2157-03 #### [facility] ([id number]) [address] [place] [address] 26069Gbtrikjij/100 WBC (Bld)9.0 %NormalProMemorial Hermann [facility] Hospital Comment on above:Performed By: #### CBCA, CMP, 1988-02, , 89768-7, 5643-2, 2157-03 #### [facility] ([id number]) [address] [place] [address] 44918Aodfqyhqpjm (Bld) [#/Vol]35.8 10*3/uLHigh1.5-6.6ProMemorial Hermann Greater Heights HospitalComment on above:Performed By: #### SYED RAPHAEL, 1988-02, , 62121-6, 5643-2, 2157-03 #### [facility] ([id number]) [address] [place] [address] 85824ZAVMZDVQY RBC1.0 /100 WBCNormal0.0-1.0ProMemorial Hermann Greater Heights HospitalComment on above:Performed By: #### SYED RAPHAEL, 1988-02, , 34618-2, 5642-, 2157-03 #### [facility] ([id number]) [address] [place] [address] 37361Uuyjbjld mean volume (Bld) [Entitic vol]7.6 fLNormal7-12 ProMAdventist Medical CenterComment on above:Performed By: #### SYED RAPHAEL, 1988-02, , 45555-2, 5642-, 2157-03 #### [facility] ([id number]) [address] [place] [address] 38757Eowfbsjak (Bld) [#/Vol]344 10*3/vJZhaskp090-386AvqZzynss Fremont HospitalComment on above:Performed By: #### SYED RAPHAEL, 1988-02, , 02902-1, 5642-11, 2157-03 #### [facility] ([id number]) [address] [place] [address] 79342CBRVYILCLYRGE7+AbnormalNONEProMedica Elastar Community HospitalComment on above:Performed By: #### SYED RAPHAEL, 1988-02, , 51896-2, 5643-2, 2157-03 #### [facility] ([id number]) [address] [place] [address] 57773MSB COUNT4.47 X10E12/LNormal3.80-5.20[facility] Comment on above:Performed By: #### IJEOMA, SYED, 1988-02, , 53206-1, 5643-2, 2157-03 #### [facility] ([id number]) [address] [place] [address] 99438YVC BDXTVKIPMI26.0 %NormalProMemorial Hermann Greater Heights HospitalComment on above:Performed By: #### SYED RAPHAEL, 1988-02, , 90730-9, 5642-2, 2157-03 #### [facility] ([id number]) [address] [place] [address] 46416PWF (Bld) [#/Vol]40.2 10*3/uLHigh4.0-11.0ProMemorial Hermann Greater Heights HospitalComment on above:Performed By: #### IJEOMA, SYED, 1988-02, , 54495-6, 5642-2, 2157-03 #### [facility] ([id number]) [address] [place] [address] 94740GL [Catalytic activity/Vol]on 54-05-6120TEQ39316 U/TSsud65-330 [facility] HospitalComment on above:Performed By: #### IJEOMA, CMP, 1988-02, , 11061-4, 5643-2, 2157-03 #### [facility] ([id number]) [address] [place] [address] 78585CLJXTPDMDBCHH METABOLIC PANELon 00-06-0340Qwxokrl [Mass/Vol]4.5 g/dLNormal3.2-5.3ProMedica Boone HospitalComment on above:Performed By: #### SYED RAPHAEL, 1988-02, , 48829-5, 5643-2, 2157-03 #### [facility] ([id number]) [address] [place] [address] 29778EMD [Catalytic activity/Vol]96 U/VWpjgbi47-966KtaNhyesrMemorial Hermann Greater Heights HospitalComment on above:Performed By: #### SYED RAPHAEL, 1988-02, , 47688-3, 5643-2, 2157-03 #### [facility] ([id number]) [address] [place] [address], [place] [address]NHE [Catalytic activity/Vol]122 U/LHigh0-31PAdena Health SystemComment on above:Performed By: #### SYED RAPHAEL, 1988-02, , 05897-4, 5642-2, 2157-03 #### [facility] ([id number]) [address] [place] [address] 26769Hmqel gap [Moles/Vol]12 mmol/LNormal5-15ProMemorial Hermann [facility] Heights HospitalComment on above:Performed By: #### SYED RAPHAEL, 1988-02, , 61223-4, 5642-2, 2157-03 #### [facility] ([id number]) [address] [place] [address] 48530ICS [Catalytic activity/Vol]356 U/LHigh0-41ProMemorial Hermann [facility] Heights HospitalComment on above:Performed By: #### SYED RAPHAEL, 1988-02, , 39993-0, 5642-2, 2157-03 #### [facility] ([id number]) [address] [place] [address] 35994Xcmnqzghr [Mass/Vol]0.6 mg/dLNormal0.3-1.2ProMedica Boone HospitalComment on above:Performed By: #### SYED RAPHAEL, 1988-02, , 84480-6, 5642-2, 2157-03 #### [facility] ([id number]) [address] [place] [address] 95289Jtioxpo [Mass/Vol]8.2 mg/dLLow8.5-10.5PAdena Health SystemComment on above:Performed By: #### SYED RAPHAEL, 1988-02, , 39296-0, 2, 2157-03 #### [facility] ([id number]) [address] [place] [address] 81972Ipylgndg [Moles/Vol]99 mmol/QBuqzzg98-189BlsLngfwyMemorial Hermann Greater Heights HospitalComment on above:Performed By: #### SYED RAPHAEL, 1988-02, , 95801-8, 5642-11, 2157-03 #### [facility] ([id number]) [address] [place] [address] 94323SZ9 [Moles/Vol]19 mmol/DXbc82-58AsgScxmuuAdena Health System Comment on above:Performed By: #### SYED RAPHAEL, 1988-02, , 56837-7, 5642-11, 2157-03 #### [facility] ([id number]) [address] [place] [address] 86062Uksgzqocbj [Mass/Vol]1.88 mg/dLHigh0.40-1.00[facility] HospitalComment on above:Result Comment: METHOD TRACEABLE TO IDMS STANDARD Performed By: #### SYED RAPHAEL, 1988-02, , 67839-4, 5642-11, 2157-03 #### [facility] ([id number]) [address] [place] [address] 84440MPQ/1.73 sq M.predicted among non-blacks MDRD (S/P/Bld) [Vol rate/Area]38 mL/min/{1.73_m2}Low>59ProMemorial Hermann Greater Heights HospitalComment on above: Result Comment: Reported eGFR is based on the CKD-EPI 2020 equation that does not use a race coefficient.Performed By: #### SYED RAPHAEL, 1988-02, , 18707- 0, 5642-11, 2157-03 #### [facility] ([id number]) [address] [place] [address] 65006Gyxjzys [Mass/Vol]88 mg/iYUhlymc41-55MutRzvdhsShelby Memorial Hospital Comment on above:Performed By: #### SYED RAPHAEL, 1988-02, , 61135-4, 5642-11, 2157-03 #### [facility] ([id number]) [address] [place] [address] 24520Ibbmbabkt [Moles/Vol]2.8 mmol/LLow3.5-5.0ProMemorial Hermann [facility] Heights HospitalComment on above:Performed By: #### SYED RAPHAEL, 1988-02, , 95659-3, 5642-11, 2157-03 #### [facility] ([id number]) [address] [place] [address] 89185Akevkjf [Mass/Vol]8.2 g/dLHigh6.0-8.0[facility] Comment on above:Performed By: #### SYED RAPHAEL, 1988-02, , 22055-4, 5642-11, 2157-03 #### [facility] ([id number]) [address] [place] [address] 89438Uouzew [Moles/Vol]130 mmol/GYtq635-258JlmGrepgnMemorial Hermann Greater Heights HospitalComment on above:Performed By: #### SYED RAPHAEL, 1988-02, , 85884-8, 5642-11, 2157-03 #### [facility] ([id number]) [address] [facility], [place], [place] [address]Qgrl nitrogen [Mass/Vol]27 mg/dLHigh5-23ProMedica Elast[facility] Community HospitalComment on above:Performed By: #### CBCA, CMP, 1988-02, 64568-2, 10667-5, 5643-2, 7-6 #### [facility] ([id number]) [address] [facility], [place], [place] [address]KCZ [Mass/Vol]on 11-04-2024 REACTIVE PROTEIN1.2 mg/dLHigh 0.000-0.744ProMedica Elastar Community HospitalComment on above:Performed By: #### CBCA, CMP, 1988-02, , 01592-4, 5643-2, 2157-03 #### [facility] ([id number]) [address] [facility], [place], [place] [address]XM ABDOMEN AND PELVIS WO CONTon 31-58-2720AU ABDOMEN AND PELVIS WO CONTCT ABDOMEN AND PELVIS WO CONT CLINICAL INFORMATION: [...] to the level of the anus. Normal appendix.No free fluid or fluid collections. Unremarkable uterus. [...] by Rohit Villarreal MD on 11/04/2024 8:25 PMNormalShelby Memorial HospitalCT BRAIN WO CONTon 35-90-5872VY BRAIN WO CONTCT BRAIN WO CONT EXAM:CT BRAIN WO CONT [...] Finalized by Subhash Colon on 11/04/2024 6:54 PMNormalShelby Memorial Hospital ETHANOLon 34-73-4793Pblhush [Mass/Vol]mg/dLNormal0.00-0.08[facility] HospitalComment on above:Result Comment: This report is intended for use in clinical monitoring or management of patients.Performed By: #### SYED RAPHAEL, 1988-02, 91190-3, 72623-7, 5643-2, 2157-03 #### [facility] ([id number]) [address] [place] [address] 97809QDJ ( test) Ql (U)on 66-92-3911Vers HCG ( test) Ql (U)NegativeNormalNEGShelby Memorial HospitalComment on above: Performed By: #### SYED RAPHAEL, 1988-02, , 07945-5, 5643-2, 2157-03 #### [facility] ([id number]) [address] [place] [address] 03019Ekduzeo (P nancy) [Moles/Vol]on 29-53-7891Yijxbak [Moles/Vol]1.2 mmol/LNormal0.4-2.0ProMemorial Hermann [facility] Heights HospitalComment on above:Performed By: #### SYED RAPHAEL, 1988-02, , 56007-9, 5642-2, 2157-03 #### [facility] ([id number]) [address] [place] [address] 13056ZMUYYZF W/REFLEX2.9 mmol/LHigh0.4-2.0[facility] Comment on above:Performed By: #### 45831-2 #### [facility] ([id number]) [address] [place] [address] 68510AJCEGBOXLjr 69-08-3299Nrjrgblxs [Mass/Vol]2.8 mg/dLHigh1.8-2.6 ProMAdventist Medical CenterComment on above:Performed By: #### YSED RAPHAEL, 1988-02, , 89618-3, 5642-11, 2157-03 #### [facility] ([id number]) [address] [place] [address] 42058Voibvilfcwsgr IA [Mass/Vol]on 37-15-7945CDCYAJECBZERE60.05 ng/mLHigh<0.05ProMemorial Hermann [facility] Heights HospitalComment on above:Result Comment: NOTE <0.50 ng/mL - Low risk of severe sepsis and/or septic shock. <2.00 ng/mL - Recommend retesting within 6-24 hours. >2.00 ng/mL - High risk of sepsis and/or septic shock.Performed By: #### SYED RAPHAEL, 1988-02, , 07719-8, 56-2, 2157-03 #### [facility] ([id number]) [address] [place] [address] 36346SCEK/FLU A+B/RSV by NAAT/Molecularon 56-25-7730ODVT/FLU A+B/RSV by NAAT/MolecularFLU A PCR Negative (qualifier value) FLU B [...] operators who are performing tests using either [employer] or [employer] systems and is limited to laboratories that [...] specimen repeat. Fact Sheet for Healthcare Providers: https://www.fda.gov/media/521671/download Fact Sheet for Patients: https://www.fda.gov/media/298897/downloadNormalProMedica Elastar Community HospitalComment on above:Performed By: #### COVFLR #### [facility] ([id number]) [address] [place] [address], FIRST FLOOR [address] CULTUREon 44-25-6653Ftsokarq identified Cx Nom (U)CULTURE RESULTS 10,000 to 50,000 ORGANISMS/mL NORMAL URO GENITAL FLORANormalProMemorial Hermann Greater Heights HospitalComment on above: Performed By: #### SYED RAPHAEL, 1988-02, , 22099-0, 5643-2, 2157-03 #### [facility] ([id number]) [address] [place] [address] [place] [address]GNY MACROSCOPIC NURon 07-64-4444OEGMQDASC NURNegativeNormalNEG [facility]ast[facility] Community HospitalComment on above:Performed By: #### SYED RAPHAEL, 1988-02, , 74640-5, 5643-2, 2157-03 #### [facility] ([id number]) [address] [place] [address] [place] [address]MSNFK/HGB NURLargeAbnormalNEGProMemorial Hermann Greater Heights HospitalComment on above:Performed By: #### SYED RAPHAEL, 1988-02, , 64632-5, 5643-2, 2157-03 #### [facility] ([id number]) [address] [place] [address] [place] [address]UCOOSLS NURNegativeNormalNEGProMemorial Hermann Greater Heights HospitalComment on above:Performed By: #### SYED RAPHAEL, 1988-02, , 66784-6, 5643-2, 2157-03 #### [facility] ([id number]) [address] [place] [address] [place] [address]TLDGLPR NURNegativeNormalNEGProMemorial Hermann Greater Heights HospitalComment on above:Performed By: #### SYED RAPHAEL, 1988-02, , 93201-0, 5643-2, 2157-03 #### [facility] ([id number]) [address] [place] [address] [place] [address]GFCDLQNHK ESTERASE NURTraceAbnormalNEGProMemorial Hermann Greater Heights HospitalComment on above:Performed By: #### IJEOMA, SYED, 1988-02, , 90953-5, 5643-2, 2157-03 #### [facility] ([id number]) [address] [place] [address] 14181XLWGUUB NURNegativeNormalNEGShelby Memorial HospitalComment on above:Performed By: #### IJEOMA, SYED, 1988-02, , 38184-7, 5643-2, 2157-03 #### [facility] ([id number]) [address] [place] [address] 50245OW NUR5.9Enpshm4.0-8.5PAdena Health SystemComment on above:Performed By: #### SYED RAPHAEL, 1988-02, , 53644-4, 5642-2, 2157-03 #### [facility] ([id number]) [address] [place] [address] 95908HKDOFXV VOB638 mg/dLAbnormalNEGShelby Memorial Hospital Comment on above:Performed By: #### SYED RAPHAEL, 1988-02, , 26949-5, 5642-2, 2157-03 #### [facility] ([id number]) [address] [place] [address] 66028XAGWCHKJ GRAVITY NUR1.669Vteljq9.003-1.035ProMemorial Hermann Greater Heights HospitalComment on above:Performed By: #### SYED RAPHAEL, 1988-02, , 31588-7, 5643-2, 2157-03 #### [facility] ([id number]) [address] [place] [address] 56468RTBMRLOFCARS NUR0.2 eu/dLNormal<1.1PAdena Health System Comment on above:Performed By: #### SYED RAPHAEL, 1988-02, , 66457-5, 5643-2, 6 #### [facility] ([id number]) [address] [facility], [place], [place] [address]XR CHEST 1 VWon 39-20-4135VZ CHEST 1 VWXR CHEST 1 VW XR CHEST 1 VW [...] by Kane Burger MD on 11/04/2024 9:06 PMNormalProMedica Elastar Community HospitallamoTRIgine [Mass/Vol]on 00-57-2351Bodhuizryrg, S0.9 mcg/mLLow3.0-15.0 ProMAdventist Medical CenterComment on above:Result Comment: NOTE ADDITIONAL INFORMATION This test was developed and its performance characteristics determined by [facility] in a manner consistent with CLIA requirements. This test has not been cleared or approved by the U.S. Food and Drug Administration. Test Performed by: [facility] [address] [place] [address] Engagement Executive: Ulysses Juarez Ph.D.; CLIA# [id number] By: #### CBCA, [facility], 1987-, 20262-1, 15860-2, 5643-2, 2157-03 #### [facility] ([id number]) [address] [place], [place] [address]ocnXBUKNrsltx [Mass/Vol]on 67-93-5341Opucurvqucgog, S1.6 mcg/mL Low10.0 - 40.0ProMemorial Hermann Greater Heights HospitalComment on above:Result Comment: NOTE ADDITIONAL INFORMATION This test was developed and its performance characteristics determined by [facility] in a manner consistent with CLIA requirements. This test has not been cleared or approved by the U.S. Food and Drug Administration. Test Performed by: [facility] [address] [place] [address] Engagement Executive: Ulysses Juarez Ph.D.; CLIA# [id number] By: #### SYED RAPHAEL, 1988-02, 49851-3, 21205-2, 5643-2, 2157-6 #### [facility] ([id number]) [address] [place] [address], [place], [place] [address]VPC AND AUTO DIFFon 31-43-8969BAKQZOWB BASOPHIL0.1 X10E9/L Normal0.0-0.2ProMedica [facility]tering Health Behavioral Medical CenterComment on above:Performed By: #### CBCSusie, CMP #### [facility] ([id number]) [address] [place], [place] [address]RREPOXNY NEUTROPHIL7.8 X10E9/LHigh1.5-6.6ProCherrington HospitalComment on above:Performed By: #### CBCSusie, CMP #### [facility] ([id number]) [address] [place], [place] [address]Afgdzejif/100 WBC (Bld)1.3 %NormalCincinnati Shriners Hospital Comment on above:Performed By: #### CBCA, CMP #### [facility] ([id number]) [address] [place], [place] [address]Vhnwcgnpevf (Bld) [#/Vol]0.4 10*3/uLNormal0.0-0.4ProPomerene Hospitalca [place] HospitalComment on above:Performed By: #### CBCA, CMP #### [facility] ([id number]) [address], [address] [place], [place] [address]Scyspwfgeof/100 WBC (Bld)3.3 %NormalCincinnati Shriners Hospital Comment on above:Performed By: #### CBCA, CMP #### [facility] ([id number]) [address], [address] [place], [place] [address]Fijlkfefpwz distribution width (RBC) [Ratio]13.4 %Normal 11.5-15.0ProMercy Health St[facility] HospitalComment on above:Performed By: #### CBCA, CMP #### [facility] ([id number]) [address], [address] [place], [place] [address]Joujymcbbh (Bld) [Volume fraction]39.8 %Qfawkk57-47KxrIxgykh [place] HospitalComment on above:Performed By: #### CBCA, CMP #### [facility] ([id number]) [address], [address] [place], [place] [address]Wrxovzsxeq (Bld) [Mass/Vol]13.3 g/wGCvgios74.7-15.5ProMedProtestant Hospital HospitalComment on above:Performed By: #### CBCA, CMP #### [facility] ([id number]) [address], [address] [place], [place] [address]Uihlgaehcdh (Bld) [#/Vol]2.4 10*3/uLNormal1.0-3.5ProMedica [facility] HospitalComment on above:Performed By: #### CBCA, CMP #### [facility] ([id number]) [address], [address] [place], [place] [address]Ltcheczexnw/100 WBC (Bld)21.2 %NormalCincinnati Shriners Hospital Comment on above:Performed By: #### CBCA, CMP #### [facility] ([id number]) [address], [address] [place], [place] [address]ZHB (RBC) [Entitic mass]30.0 tdAdxutm43-53XykNzisqy [place] HospitalComment on above:Performed By: #### CBCA, CMP #### [facility] ([id number]) [address], [address] [place], [place] [address]EGCW (RBC) [Mass/Vol]33.5 g/qSWittcf24-03KmcLtdfzs [place] HospitalComment on above:Performed By: #### CBCA, CMP #### [facility] ([id number]) [address], [address] [place], [place] [address]YNX (RBC) [Entitic vol]89 aLXkwdzv87-993IhnQwwwys [place] HospitalComment on above:Performed By: #### CBCA, CMP #### [facility] ([id number]) [address], [address] [place], [place] [address]Edkmahqlm (Bld) [#/Vol]0.7 10*3/uLNormal0-0.9ProMer[facility] Health [facility] HospitalComment on above:Performed By: #### CBCA, CMP #### [facility] ([id number]) [address], [address] [place], [place] [address]Mmtnethrq/100 WBC (Bld)6.3 %NormalCincinnati Shriners Hospital Comment on above:Performed By: #### CBCA, CMP #### [facility] ([id number]) [address], [address] [place], [place] [address]Aahbjnvgagz/100 WBC (Bld)67.9 %NormalCincinnati Shriners Hospital Comment on above:Performed By: #### CBCA, CMP #### [facility] ([id number]) [address], [address] [place], [place] [address]Rdsdpdsq mean volume (Bld) [Entitic vol]7.7 fLNormal7-12 ProMusa health providence hospitala [place] HospitalComment on above:Performed By: #### IJEOMA, CMP #### [facility] ([id number]) [address], [address] [place], [place] [address]Tlfjtssmx (Bld) [#/Vol]333 10*3/kVGzislc398-914YwfUvktho Hassan HospitalComment on above:Performed By: #### CBCSusie, CMP #### [facility] ([id number]) [address], [address] [place], [place] [address]QHN COUNT4.45 X10E12/LNormal3.80-5.20ProMer[facility] Hospital Comment on above:Performed By: #### IJEOMA, CMP #### [facility] ([id number]) [address], [address] [place], [place] [address]DCM (Bld) [#/Vol]11.4 10*3/uLHigh4.0-11.0ProPomerene Hospitalca [place] HospitalComment on above:Performed By: #### IJEOMA, CMP #### [facility] ([id number]) [address], [address] [place], [place] [address]GFZVYUTDEQRUA METABOLIC PANELon 71-40-2332Mulrpxh [Mass/Vol]4.4 g/dLNormal3.2-5.3ProMedProtestant Hospital HospitalComment on above:Performed By: #### CBCSusie, CMP #### [facility] ([id number]) [address], [address] [place], [place] [address]CJF [Catalytic activity/Vol]87 U/ONosoxi09-707OmaLlzwhg Hassan HospitalComment on above:Performed By: #### CBCA, CMP #### [facility] ([id number]) [address], [address] [place], [place] [address]QRD [Catalytic activity/Vol]17 U/LNormal0-31ProMedProtestant Hospital HospitalComment on above:Performed By: #### CBCA, CMP #### [facility] ([id number]) [address], [address] [place], [place] [address]Timzs gap [Moles/Vol]11 mmol/LNormal5-15ProMedica Hassan HospitalComment on above:Performed By: #### CBCA, CMP #### [facility] ([id number]) [address], [address] [place], [place] [address]LRV [Catalytic activity/Vol]15 U/LNormal0-41ProMediOhioHealth Grove [facility] Methodist [facility] HospitalComment on above:Performed By: #### CBCSusie, CMP #### [facility] ([id number]) [address], [address] [place], [place] [address]Voulcvtql [Mass/Vol]0.2 mg/dLLow0.3-1.2PEast [facility] Comment on above:Performed By: #### CBCSusie, CMP #### [facility] ([id number]) [address], [address] [place], [place] [address]Kdrkjso [Mass/Vol]9.4 mg/dLNormal8.5-10.5PKeenan Private Hospital HospitalComment on above:Performed By: #### CBCA, CMP #### [facility] ([id number]) [address], [address] [place], [place] [address]Ymhseytp [Moles/Vol]100 mmol/XSbpkxs68-466KzjVkyikg [facility] HospitalComment on above:Performed By: #### CBCA, CMP #### [facility] ([id number]) [address], [address] [place], [place] [address]FY6 [Moles/Vol]29 mmol/LVzvuei03-50BckUmmmsoEast [facility] Hospital Comment on above:Performed By: #### CBCA, CMP #### [facility] ([id number]) [address], [address] [place], [place] [address]Xdghgsenmb [Mass/Vol]0.64 mg/dLNormal0.40-1.00ProCherrington HospitalComment on above:Result Comment: METHOD TRACEABLE TO IDMS STANDARD Performed By: #### IJEOMA, CMP #### [facility] ([id number]) [address], [address] [place], [place] [address]aIQY (CKD-EPI) NON-RACE DEPENDENT>90Normal>59ProMer[facility] HospitalComment on above:Result Comment: Reported eGFR is based on the CKD-EPI 2020 equation that does not use a race coefficient.Performed By: #### IJEOMA, CMP #### [facility] ([id number]) [address], [address] [place], [place] [address]Ddwwalc [Mass/Vol]73 mg/rTEyfhca11-43NatWyzbcb [facility] Comment on above:Performed By: #### IJEOMA, CMP #### [facility] ([id number]) [address], [address] [place], [place] [address]Lwmyoiadm [Moles/Vol]4.3 mmol/LNormal3.5-5.0ProCherrington HospitalComment on above:Performed By: #### IJEOMA, CMP #### [facility] ([id number]) [address], [address] [place], [place] [address]Mrdgwjs [Mass/Vol]7.3 g/dLNormal6.0-8.0ProCherrington Hospital Comment on above:Performed By: #### CBCSusie, CMP #### [facility] ([id number]) [address], [address] [place], [place] [address]Ctmczy [Moles/Vol]140 mmol/FHqqskd273-531BrlWaoffj [facility] HospitalComment on above:Performed By: #### CBCA, CMP #### [facility] ([id number]) [address], [address] [place], [place] [address]Cudb nitrogen [Mass/Vol]12 mg/dLNormal5-23Pro[facility] Behavioral Medical CenterComment on above:Performed By: #### CBCA, CMP #### [facility] ([id number]) [address], [address] [place], [place] [address]Owngszlwxuj [Mass/volume] in Serum or PlasmaOrdered By: Obie Harley on 37-89-4020Obawamdwmdy [Mass/Vol]198 mg/mP025-806NnwwbvoifSamaritan HospitalComment on above:Chol less than 200 mg/dl low riskChol 201-239 mg/dl borderline riskChol 240 mg/dl and greater high riskCholesterol in LDL Calc [Mass/Vol]Ordered By: Obie Harley on 33-79-5564Kavdqwoolky in LDL [Mass/Vol] 107 mg/dLHigh0-100Samaritan HospitalComment on above:LDL ATP III CLASSIFICATIONLDL less than 100 mg/dL OptimalLDL 100-129 mg/dL Near or above petjvmoOGY639-612 mg/dL Borderline highLDL 160-189 mg/dL HighLDL greater than 189 mg/dL Very highCholesterol in VLDL Calc [Mass/Vol]Ordered By: Obie Harley on 76-95-1541Msiaelkxqzv in VLDL [Mass/Vol]17 mg/dLGerman Hospitalerum or plasma high density lipoprotein (HDL) cholesterol measurement Ordered By: Obie Harley on 17-65-3132Eiusmmnkhru in HDL [Mass/Vol]74 mg/dL 23-92Samaritan HospitalComment on above:HDL CHOL ATP-III CLASSIFICATION Cardiovascular RiskHDL > or equal to 60 mg/dL LOWHDL < 40 mg/dL HIGHSerum or plasma total cholesterol/high density lipoprotein (HDL) cholesterol mass ratOrdered By: Obie Harley on 63-81-4401Ldvglgwwtca.total/Cholesterol in HDL [Mass ratio]2.7 {ratio}<5.0Samaritan HospitalThyrotropin [Units/volume] in Serum or PlasmaOrdered By: Obie Harley on 31-62-0609YHJ Qn 0.78 m[IU]/L0.45-5.33Samaritan HospitalTriglyceride [Mass/volume] in Serum or PlasmaOrdered By: Obie Harley on 20-59-9005Sgtpnsjvuwqm [Mass/Vol]85 mg/dL0-149Samaritan HospitalComment on above:TRIG ATP III CLASSIFICATIONTRIG less than 150 mg/dL NormalTRIG 150-199 mg/dL Borderline highTRIG 200-500 mg/dL High TRIG greater than 500 mg/dL Very highStandard traceable to the Center for Disease Conrtrol and Prevention (CDC) test method.Vitamin D+Metabolites [Mass/volume] in Serum or PlasmaOrdered By: Obie Harley on 71-62-4366Hghcdty D+Metabolites [Mass/Vol]21.8 ng/uTEtk37-110 Samaritan HospitalComment on above:VITAMIN D STATUS 25(OH)VITAMIN D RANGE (ng/mL) Deficient <20 Insufficient 20 to <15Ocluedoiaa25 to 100Reference: Costa MF,Woo NC, Yvrose GRIDER, et al. Evaluation,treatment, and prevention of vitamin D deficiency; an Endocrine Society clinical practice guideline. JCEM. 2010; 96(7):1911-30.Sleep Deprived EEGon [id number] from the original result were not included. [...] Sanchez MD, PhD Neurology/Clinical Neurophysiology MANUALLY TRANSCRIBED RESULTSSleep Deprived EEGOrdered By: Brisa Sanchez on 34-34-2787HxpCmokiu [facility] System Work Phone: EDPROVon [id number] Chief Complaint Patient presents with Back Pain [...] and discharge. Lilian Ellington (more content not included)...NormalUnSelect Medical Specialty Hospital - Columbus SouthAMYLASEon [id number] [Catalytic activity/Vol]56 U/FPadljw08-920Llg [facility] HospitalComment on above:Performed By: #### LIAN, CMP, LIPA #### [facility] [address] [address] [address] Hanh Camara AUTO DIFFon [id number] #0.1 103/ulNormal0.0-0.1The [facility] HospitalComment on above:Performed By: #### CBC #### [facility] [address] [address] [address] Hanh Waresophils/100 WBC (Bld)0.5 %Normal0.2-2.0[facility] Comment on above:Performed By: #### CBC #### [facility] [address] [address] [address] Hanh Valdovinos #0.1 103/ulNormal0.0-0.7The [facility] HospitalComment on above: Performed By: #### CBC #### [facility] [address] [place] [address] Dr. Hanh Davidsonosinophils/100 WBC (Bld)0.5 %Critically low0.9-7.0The [facility] HospitalComment on above:Performed By: #### CBC #### [facility] [address] [place] [address] Dr. Hanh Davidsonrythrocyte distribution width (RBC) [Ratio]12.4 %Lcifcb42.0-15.0 The [facility] HospitalComment on above:Performed By: #### CBC #### [facility] [address] [place] [address] Dr. Hanh CervantesHematocrit (Bld) [Volume fraction]42.1 %Vtcuyn91.0-48.0The [facility] HospitalComment on above:Performed By: #### CBC #### [facility] [address] [place] [address] Dr. Hanh CervantesHemoglobin (Bld) [Mass/Vol]14.3 g/hDTejkee99.0-16.0The [facility] on above:Performed By: #### CBC #### [facility] [address] [place] [address] Dr. Hanh Brooks #0.04 10e3/ulCritically high0.00-0.03The [facility] Comment on above:Performed By: #### CBC #### [facility] [address] [place] [address] Dr. Hanh Brooks %0.3 %Normal0.0-0.5The [facility] HospitalComment on above: Performed By: #### CBC #### [facility] [address] [place] [address] Dr. Hanh GarcíaH #1.1 103/ulCritically low1.2-3.8The [facility] Comment on above:Performed By: #### CBC #### [facility] [address] [place] [address] Dr. Hanh Hollowaymphocytes/100 WBC (Bld)9.7 %Critically low20.5-60.0The [facility] HospitalCommclaren oakland on above:Performed By: #### CBC #### [facility] [address] [place] [address] Dr. Hanh Calzada DIFF REQNONormalThe [facility] HospitalComment on above: Performed By: #### CBC #### [facility] [address] [place] [address] Dr. Hanh Salazar (RBC) [Entitic mass]28.9 fvKnjosi53.7-34.0The [facility] HospitalComment on above:Performed By: #### CBC #### [facility] [address] [place] [address] Dr. Hanh Salazar (RBC) [Mass/Vol]34.0 g/xRQljynb37.9-35.2The [facility] HospitalComment on above:Performed By: #### CBC #### [facility] [address] [place] [address] Dr. Hanh Salazar (RBC) [Entitic vol]85.2 fLRqiwcv25.0-99.0The [facility] HospitalComment on above:Performed By: #### CBC #### [facility] [address] [place] [address] Dr. Hanh العراقي #0.5 103/ulNormal0.3-0.8The [facility] HospitalComment on above:Performed By: #### CBC #### [facility] [address] [place] [address] Dr. Hanh Reneeocytes/100 WBC (Bld)4.4 %Normal1.7-12.0[facility] Comment on above:Performed By: #### CBC #### [facility] [address] [place] [address] Dr. Hnah Henderson #9.9 103/ulCritically high1.4-6.5The [facility] Comment on above:Performed By: #### CBC #### [facility] [address] [place] [address] Dr. Hanh CervantesNeutrophils/100 WBC (Bld)84.6 %Critically high43.0-75.0The [facility] on above:Performed By: #### CBC #### [facility] [address] [place] [address] Dr. Hanh CervantesPlatelet mean volume (Bld) [Entitic vol]10.1 fLNormal9.5-13.5The [facility] HospitalCommclaren oakland on above:Performed By: #### CBC #### [facility] [address] [place] [address] Dr. Hanh CervantesPLT368 103/yiDhkwtp407-646Bbe [facility] on above: Performed By: #### CBC #### [facility] [address] [place] [address] Dr. Hanh CervantesRBC4.94 106/ulNormal4.20-5.40The [facility] on above:Performed By: #### CBC #### [facility] [address] [place] [address] Dr. Hanh CervantesWBC11.7 103/ulCritically high4.0-11.0The [facility] on above:Performed By: #### CBC #### [facility] [address] [place] [address] Dr. Hanh CervantesLIPASEon 74-22-9752Gfeyfx [Catalytic activity/Vol]82.0 U/LNormal 73.0-393.0The [facility] on above:Performed By: #### LIAN, CMP, LIPA #### [facility] [address] [place] [address] Dr. Hanh CervantesPROF 14(COMP METB)on 34-14-8966Ytovnsu [Mass/Vol]4.6 g/dLNormal 3.4-5.0The [facility] on above:Performed By: #### LIAN, CMP, LIPA #### [facility] [address] [place] [address] Dr. Hanh CervantesAlbumin/Globulin [Mass ratio]1.1 {ratio}NormalThe [facility] HospitalComment on above:Performed By: #### LIAN, CMP, LIPA #### [facility] [address] [place] [address] Dr. Hanh Hurd [Catalytic activity/Vol]88 U/UWhpmvx01-331Mof [facility] HospitalComment on above:Performed By: #### LIAN, CMP, LIPA #### [facility] [address] [place] [address] Dr. Hanh Garcia [Catalytic activity/Vol]45 U/ZInfvni23-02Psa [facility] HospitalComment on above:Performed By: #### LIAN, CMP, LIPA #### [facility] [address] [place] [address] Dr. Hanh Braron gap [Moles/Vol]14.7 mmol/LNormalThe [facility] Comment on above:Performed By: #### LIAN, CMP, LIPA #### [facility] [address] [place] [address] Dr. Hanh Oakley [Catalytic activity/Vol]24 U/GNewxou21-46Tgq [facility] HospitalComment on above:Performed By: #### LIAN, CMP, LIPA #### [facility] [address] [place] [address] Dr. Hanh CervantesBilirubin [Mass/Vol]0.6 mg/dLNormal0.2-1.0The [facility] Comment on above:Performed By: #### LIAN, CMP, LIPA #### [facility] [address] [place] [address] Dr. Hanh CervantesCalcium [Mass/Vol]9.4 mg/dLNormal8.5-10.1The [facility] Comment on above:Performed By: #### LIAN, CMP, LIPA #### [facility] [address] [place] [address] Dr. Hanh CervantesChloride [Moles/Vol]100 mmol/DZpcibw36-493Qav [facility] Comment on above:Performed By: #### LIAN, CMP, LIPA #### [facility] [address] [address] [address] Hanh CervantesCO2 [Moles/Vol]25.9 mmol/TUdekyd07.0-32.0The [facility] Comment on above:Performed By: #### LIAN, CMP, LIPA #### [facility] [address] [address] [address] Hanh CervantesCreatinine [Mass/Vol]0.78 mg/dLNormal0.55-1.02The [facility] HospitalComment on above:Performed By: #### LIAN, CMP, LIPA #### [facility] [address] [address] [address] Hanh DavidsonGFR-AF TUVALUAN>60Normal>=60The [facility] HospitalComment on above:Performed By: #### LIAN, CMP, LIPA #### [facility] [address] [place] [address] Dr. Hanh DavidsonGFR-NON AF TUVALUAN>60Normal>=60The [facility] HospitalComment on above:Performed By: #### LIAN, CMP, LIPA #### [facility] [address] [address] [address] Hanh CervantesGlobulin (S) [Mass/Vol]4.3 g/dLNormalThe [facility] HospitalComment on above:Performed By: #### LIAN, CMP, LIPA #### [facility] [address] [place] [address] Dr. Hanh CervantesGlucose [Mass/Vol]117 mg/dLCritically azho51-545Gls [facility] HospitalComment on above:Performed By: #### LIAN, CMP, LIPA #### [facility] [address] [place] [address] Dr. Hanh CervantesPotassium [Moles/Vol]3.6 mmol/LNormal3.5-5.1The [facility] Comment on above:Performed By: #### LIAN, CMP, LIPA #### [facility] [address] [place] [address] Dr. Hanh CervantesProtein [Mass/Vol]8.9 g/dLCritically high6.4-8.2The [facility] HospitalComment on above:Performed By: #### LIAN, CMP, LIPA #### [facility] [address] [address] [address] Hanh CervantesSodium [Moles/Vol]137 mmol/FKguqyo492-543Gbo [facility] Comment on above:Performed By: #### LIAN, CMP, LIPA #### [facility] [address] [address] [address] Hanh Hernandez nitrogen [Mass/Vol]9.0 mg/dLNormal7.0-18.0The [facility] HospitalComment on above:Performed By: #### LIAN, CMP, LIPA #### [facility] [address] [address] [address] Hanh Hernandez nitrogen/Creatinine [Mass ratio]11.5 mg/mgNormalThe [facility] HospitalComment on above:Performed By: #### LIAN, CMP, LIPA #### [facility] [address] [address] [address] Hanh Cervantes Vital Signs Date TimeVital SignValuePerforming UwssxgrcrEmrmsrcs22-87-8125 11:40-0400 Diastolic blood slunlpcc272 mm[Hg]Muhamid Hugo ND Work Phone: [facility]09-16-2025 11:40-0400Systolic blood peywzyxb086 mm[Hg]Muhamid Hugo ND Work Phone: [facility]09-16-2025 11:34-0400Body ciewky091 cmMuhamid Hugo ND Work Phone: [facility]09-16-2025 11:34-0400Body mass index (BMI) [Ratio]35.43 kg/t3Bcfzxyp Hugo ND Work Phone: [facility]09-16-2025 11:34-0400Body oedocbxtwmo85.2 [degF]Muhamid Hugo ND Work Phone: [facility]09-16-2025 11:34-0400Body .72 kgMuhamid Hugo ND Work Phone: [facility] CenterXyleme [facility] CenterWautec89-97-3308 11:34-0400Heart rate82 /minMuhamid Hugo ND Work Phone: [facility]09-16-2025 11:34-0400 Respiratory rate20 /minMuhamid Hugo ND Work Phone: [facility]09-16-2025 11:34-3741QtU0% (BldA) [Mass fraction]98 %Muhamid Hugo ND Work Phone: [facility]08-09-2025 17:45-0400Diastolic blood zcpqykap95 mm[Hg]Muhamid Hugo ND Work Phone: [facility]08-09-2025 17:45-0400Heart rate70 /minMuhamid Hugo ND Work Phone: [facility]08-09-2025 17:45-0400 Respiratory rate16 /minMuhamid Hugo ND Work Phone: [facility]08-09-2025 17:45-0510VlR6% (BldA) [Mass fraction]96 %Muhamid Hugo ND Work Phone: [facility]08-09-2025 17:45-0400Systolic blood mm[Hg]Muhamid Hugo ND Work Phone: [facility]08-09-2025 14:53-0400Body ilddpoxtceq558.4 [degF]Muhamid Hugo ND Work Phone: [facility]08-01-2025 10:47-0400Body yzcttp271 Emmylexjacques Lynch APRN-SEATING AND MOBILITY TECHNOLOGIST Work Phone: [facility] [employer] Rjsoqg96-98-8491 10:47-0400Body mass index (BMI) [Ratio]34.52 kg/b9TkvxcjazySharon Lynch TEST OPERATOR-SEATING AND MOBILITY TECHNOLOGIST Work Phone: [facility] Zeicyi16-46-8609 10:47-0400Body hdbmbigehzc48.59 [degF]Sharon Lynch TEST OPERATOR-SEATING AND MOBILITY TECHNOLOGIST Work Phone: [facility] [employer] Wjenfu76-59-4271 10:47-0400Body hykovw98.36 kgAlecindy Lynch TEST OPERATOR-SEATING AND MOBILITY TECHNOLOGIST Work Phone: [facility] [employer] Ucbufg64-63-9844 10:47-0400Diastolic blood xxmjerzg94 mm[Hg]Sharon Lynch TEST OPERATOR-SEATING AND MOBILITY TECHNOLOGIST Work Phone: [facility] Dwgkis12-64-1642 10:47-0400Heart rate 76 /minAlecindy Lynch TEST OPERATOR-SEATING AND MOBILITY TECHNOLOGIST Work Phone: [facility] [employer] Xgkuce11-85-3692 10:47-4203FwU3% (BldA) [Mass fraction]98 %Sharon Lynch TEST OPERATOR-SEATING AND MOBILITY TECHNOLOGIST Work Phone: [facility] [employer] Zggqqq66-80-8449 10:47-0400Systolic blood lmglywuv722 mm[Hg]Sharon Lynch TEST OPERATOR-SEATING AND MOBILITY TECHNOLOGIST Work Phone: [facility] Nxvzwu82-27-1445 13:39-0400Body onolwe240 cmAeloise Hines PA-C Work Phone: [facility] Qftbym36-16-5210 13:39-0400Body mass index (BMI) [Ratio]34.54 kg/l3OqzmrenBryant Hines PA-C Work Phone: [facility] Omzeks19-47-5814 13:39-0400Body mihlgc78.45 kgBryant Hines PA-C Work Phone: [facility] Usfjnw15-10-6678 13:39-0400Diastolic blood onmekxlg40 mm[Hg]Bryant Hines PA-C Work Phone: [facility] Vhbwud99-55-5302 13:39-0400Heart rate 72 /minBryant Hines PA-C Work Phone: [facility] Bpsqnm15-62-7937 13:39-0400Systolic blood tlbqqyex762 mm[Hg]Bryant Hines PA-C Work Phone: [facility]07-23-2025 16:00-0400Diastolic blood eleaaopz09 mm[Hg]Nancy Barnard MD Work Phone: [employer]07-23-2025 16:00-0400Heart rate87 /Alden Barnard MD Work Phone: [employer]07-23-2025 16:00-0400 Respiratory rate17 /Alden Barnard MD Work Phone: [employer]07-23-2025 16:00-0400Systolic blood fkktymva412 mm[Hg]Nancy Barnard MD Work Phone: [facility] [employer]07-23-2025 09:01-0400Body hagcdwsnugb27.59 [degF]Nancy Barnard MD Work Phone: [employer]07-23-2025 08:46-6397VuW7% (BldA) [Mass fraction]97 %Nancy Barnard MD Work Phone: [facility] [employer]07-22-2025 16:37-0400Body zmojft803 cmThaiyayo Barnard MD Work Phone: [employer]07-22-2025 16:37-0400Body mass index (BMI) [Ratio]32.57 kg/i0Fbhphdaphney Barnard MD Work Phone: [facility] [employer]07-22-2025 16:37-0400Body uxthvj64.4 kgThdaphney Barnard MD Work Phone: [employer]06-11-2025 10:27-0400Body Alex Hines PA-C Work Phone: [facility] [employer] Zqably43-60-5610 10:27-0400Body mass index (BMI) [Ratio]34.54 kg/n6FgdaljyBryant Hines PA-C Work Phone: [facility] Dxujff63-36-2272 10:27-0400Body cxyyxp39.45 kgBryant Hines PA-C Work Phone: [facility] Dcwkvu60-54-2712 10:27-0400Diastolic blood dwzcemfa49 mm[Hg]Bryant Hines PA-C Work Phone: [facility] Wbulaf74-94-8839 10:27-0400Heart rate 77 /minBryant Hines PA-C Work Phone: [phone] Nivlyr31-59-4334 10:27-0400Systolic blood mmjysrnf137 mm[Hg]Bryant Hines PA-C Work Phone: [facility] Fkjmtu51-38-2125 10:35-0400Body .6 cmAntmarymaria esther Hines PA-C Work Phone: [facility] Ijprwj83-92-5462 10:35-0400Body mass index (BMI) [Ratio]34.31 kg/s2EdewffpBryant Hines PA-C Work Phone: [facility] Rkdoid27-10-7066 10:35-0400Body ookbin34.72 kgBryant Hines PA-C Work Phone: [facility] Pxfdim71-32-3154 10:35-0400Diastolic blood emgqzwxh04 mm[Hg]Bryant Hines PA-C Work Phone: [facility] Kflelk60-26-1045 10:35-0400Heart rate 71 /minBryant Hines PA-C Work Phone: [phone] Bjxxiv56-28-8843 10:35-0400Systolic blood npijqhoi765 mm[Hg]Bryant Hines PA-C Work Phone: [facility] Penjgr86-21-2308 11:02-0500Body saobxd546.6 cmJanay Mustafa APRN-SEATING AND MOBILITY TECHNOLOGIST Work Phone: [facility]02-18-2025 11:02-0500Body mass index (BMI) [Ratio]34.35 kg/f5WnepgbJanay Mustafa APRN-SEATING AND MOBILITY TECHNOLOGIST Work Phone: [facility]02-18-2025 11:02-0500Body zzgmrwiwndv51.6 [degF]Janay Mustafa APRN-SEATING AND MOBILITY TECHNOLOGIST Work Phone: [facility]02-18-2025 11:02-0500Body .81 kgJanay Mustafa TEST OPERATOR-SEATING AND MOBILITY TECHNOLOGIST Work Phone: [facility]02-18-2025 11:02-0500Diastolic blood zjoomtpf26 mm[Hg]Janay Mustafa APRN-SEATING AND MOBILITY TECHNOLOGIST Work Phone: [facility]02-18-2025 11:02-0500Heart rate 66 /minJanay Mustafa APRN-SEATING AND MOBILITY TECHNOLOGIST Work Phone: [facility]02-18-2025 11:02-3518JcX5% (BldA) [Mass fraction]99 %Janay Mustafa APRN-SEATING AND MOBILITY TECHNOLOGIST Work Phone: [facility]02-18-2025 11:02-0500Systolic blood hysvgfcp582 mm[Hg]Janay Mustafa APRN-SEATING AND MOBILITY TECHNOLOGIST Work Phone: [facility]02-08-2025 11:46-0500Body ypoqolifowk03.2 [degF]Oliverio Dennis MD Work Phone: [facility]02-08-2025 11:46-0500Diastolic blood cokzhvwz62 mm[Hg]Oliverio Dennis MD Work Phone: [facility]02-08-2025 11:46-0500Heart rate 57 /minSnathan Dennis MD Work Phone: [facility]02-08-2025 11:46-0500 Respiratory rate16 /minSnathan Dennis MD Work Phone: [phone] [place], [place] 6577802-08-2025 11:46-0500Systolic blood ukeaswpb071 mm[Hg]Oliverio Dennis MD Work Phone: [phone] [place], [place] 6577802-08-2025 09:06-7143VrJ1% (BldA) [Mass fraction]99 %Oliverio Dennis MD Work Phone: [phone] [place], [place] 6577802-06-2025 05:00-0500Body mass index (BMI) [Ratio]34.95 kg/b0OnwbcsvOliverio Dennis MD Work Phone: [phone])913-[address] [place], [place] 6577802-06-2025 05:00-0500Body thoesj02.4 kgOliverio Dennis MD Work Phone: 1(656)670-[address] [place], [place] 6577802-03-2025 04:00-0500Body .6 cmSnathan Dennis MD Work Phone: [phone])[phone] [place], [place] 6577802-01-2025 09:29-0500Body vxbwxbeymfz84.6 [degF]Oliverio Dennis MD Work Phone: [phone])[phone] [place], [place] 6577802-01-2025 09:29-0642OsI5% (BldA) [Mass fraction]65 %Oliverio Dennis MD Work Phone: [phone] [place], [place] 6577802-01-2025 09:29-9197XaA5% (BldA) [Mass fraction]96 %Oliverio Dennis MD Work Phone: [phone] [place], [place] 6577802-01-2025 09:26-8324EkU3% (BldA) [Mass fraction]96 %[facility] HospitalComment on above: Performed By: #### ABG ####[facility] ([id number])[address] [place], [place] [id number] 15:50-0400Body uihsbj043.6 Barbara Bragg MD Work Phone: [facility]10-08-2024 15:50-0400Body mass index (BMI) [Ratio]30.9 kg/m2Megha Bragg MD Work Phone: [facility]10-08-2024 15:50-0400Body rtorno61.65 kgMegha Bragg MD Work Phone: [facility]10-08-2024 15:50-0400Diastolic blood jlgfhhux08 mm[Hg]Megha Bragg MD Work Phone: [facility]10-08-2024 15:50-0400Systolic blood tyohjxfk357 mm[Hg]Megha Bragg MD Work Phone: [facility]07-19-2024 07:30-0400Body .9 [degF]MD Ottoniel Arias Work Phone: [phone]07-19-2024 07:30-0400 Diastolic blood mm[Hg]MD Ottoniel Arias Work Phone: [phone]07-19-2024 07:30-0400 Heart rate85 /minMD Ottoniel Hugo Work Phone: [phone]07-19-2024 07:30-0400 Respiratory rate18 /minMD Solano Hugo Work Phone: [phone]07-19-2024 07:30-0400 SaO2% (BldA) [Mass fraction]99 %MD Ottoniel Arias Work Phone: [phone]07-19-2024 07:30-0400 Systolic blood gljfomph007 mm[Hg]MD Ottoniel Arias Work Phone: [phone]07-16-2024 14:12-0400 Body hhxaul547.02 cmMD Solano Hugo Work Phone: [phone]07-15-2024 08:11-0400 Body okkpcy47.84 kgMD Muhamid Hugo Work Phone: [facility]04-26-2024 13:23-0400 Body taskry260.6 Barbara Bragg MD Work Phone: [facility]04-26-2024 13:23-0400Body mass index (BMI) [Ratio]28.32 kg/m2Megha Bragg MD Work Phone: [facility]04-26-2024 13:23-0400Body utxjqp15.84 kgMegha Bragg MD Work Phone: [facility]04-26-2024 13:23-0400Diastolic blood pskuavrz40 mm[Hg]Megha Bragg MD Work Phone: [facility]04-26-2024 13:23-0400Heart rate 106 /Yoly Bragg MD Work Phone: [facility]04-26-2024 13:23-0400Systolic blood msulkufi326 mm[Hg]Megha Bragg MD Work Phone: [facility]10-18-2023 16:40-0400Body oshblq725.02 Henrietta Woodard Other [facility] Other 10-18-2023 16:40-0400Body mass index (BMI) [Ratio] 27.99 kg/u6WkadorBarb Woodard Other [facility] Other 10-18-2023 16:40-0400Body bkemjhbgvvv57.7 [degF]Barb Woodard Other [facility] Other 10-18-2023 16:40-0400Body .67 kgBarb Woodard Other [facility] Other 10-18-2023 16:40-0400Diastolic blood aiulkesh89 mm[Hg] Barb Woodard Other [facility] [employer] Other 10-18-2023 16:40-0400Respiratory rate18 /minBarb Woodard [facility] Other 10-18-2023 16:40-0559QaE5% (BldA) [Mass fraction]99 % Barb Woodard Other [facility] [employer] Other 10-18-2023 16:40-0400Systolic blood cipkxxzi287 mm[Hg] Barb Woodard [facility] Other Encounters Encounter DateEncounter TypeCare ProviderFacilityStart: 95-03-0048amftyjmwsnnguyễn MontalvoFacility:[facility]: 07-27-2025 End: 04-92-7998ohfgfjfdygOTLFTBY [facility] HospitalStart: 07-27-2025 End: 98-98-2560Gbodefukoz hospital visit by [facility]St[facility] Schedule [facility] LABComment on above:Missed abortionStart: 07-18-2025 End: 87-32-5838qfevttvfpcYBGDBPI M [facility] Ambulatory PPGStart: 07-11-2025 End: 25-72-0419zalocjljxsPVCDHQNR E POOLMercy Richmond HospitalStart: 07-10-2025 End: 05-31-5809vlyvxjtvosIHCOETM [facility] HospitalStart: 07-04-2025 End: 76-54-2764lmzihwnoxtBLDXNXJ M [facility] HospitalStart: 06-26-2025 End: 22-48-0824rclfoierjgBoqozps Asif MD Work Phone: [facility] Work Phone: Start: 06-26-2025 End: 59-89-2611Noxaqimy Octaviano Schulz PA-C-LAB [facility] Start: 06-22-2025 End: 63-44-0912Gbppxqhfm department patient visitFacility:[facility] HospitalStart: 06-20-2025 End: 77-63-3335Xxluyryjj department patient visitMUOrange City Area Health System Emergency DepartmentComment on above:Cannabis 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); Positive testStart: 06-19-2025 End: 26-78-3747Izpcabiqf department patient visitMUOrange City Area Health System HospitalStart: 45-75-9440Fhroturgfh RecurringDonavon Montalvo MDPR[facility]ENCE [facility] CredibleStart: 05-26-2025 End: 79-15-9138Lsganp-up encounterMerfariba BRUNOPhoenix Memorial HospitaloMedbryce hospital Physicians Family MedicineComment on above:Basic Metabolic PanelStart: 85-07-9874bubyvjbtcjLos Angeles County [facility] HospitalStart: 05-13-2025 End: 74-19-5649Ohsgkedoa department patient visitMUROME MEMORIAL HOSPITALID [facility] Emergency DepartmentComment on above:Cannabis 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)Start: 05-05-2025 End: 51-60-0084bwyuigfysgLASTUQJXIUniversity Hospital Ambulatory PPGStart: 05-05-2025 End: 65-21-7694Moxjfkgifjmz care manage srvc 14 day dischargeSentara Northern Virginia Medical Centerjas TEST OPERATOR-SEATING AND MOBILITY TECHNOLOGIST Work Phone: [facility] Family MedicineComment on above: Nausea and vomiting, unspecified vomiting type (Primary Dx); Hypokalemia; RAKESH (acute kidney injury); Seizure disorder (CMS-HCC); Hospital discharge follow-upStart: 04-28-2025 End: 38-97-6728Eavnjz outpatient visit 15 minutesBryant Hines PA-C Work Phone: [facility] FremontComment on above:Seizure disorder (CMS-HCC) (Primary Dx); Breakthrough seizure (CMS-HCC); Cannabinoid hyperemesis syndromeStart: 04-28-2025 End: 98-60-9957qcweulvdaxIVXJPBOMonroe Clinic Hospital PPGStart: 04-25-2025 End: 59-98-5638gtteuecpwoSSXUDYHolmes County Joel [facility]ome[facility] Memorial Hospitaltart: 04-25-2025 End: 08-42-5951Ptybaspmaq and management of inpatientThais Carmelo Barnard MD Work Phone: mthz ICUComment on above:Nausea and vomiting, unspecified vomiting type (Primary Dx); Cannabinoid hyperemesis syndrome; Hypokalemia; DehydrationStart: 47-68-6978lpviodwcbvVUHABGT C HAMILTONSelect Medical [facility] Hospital - Dublintart: 03-15-2025 End: 32-60-1751Abgumr outpatient visit 25 minutesBryant Hines PA-C Work Phone: [facility] FremontComment on above:Seizure disorder ([facility]-HCC) (Primary Dx); Breakthrough seizure ([facility]-HCC)Start: 03-15-2025 End: 46-55-0415axtkzwldeaEROCWTNMonroe Clinic Hospital PPGStart: 03-01-2025 End: 16-17-4261Hiecfslqq department patient visitMartins Ferry Hospitaltart: 02-23-2025 End: 47-86-8828Trqymgioy department patient visitMartins Ferry Hospitaltart: 12-21-2024 End: 21-83-8552Tzjmsm outpatient visit 15 minutesMegha Bragg MD Work Phone: [facility] Neu[facility] FremontComment on above:Seizure disorder ([facility]-HCC) (Primary Dx)Start: 12-21-2024 End: 12-41-3472xmofifouxeDWFXYJPMonroe Clinic Hospital PPGStart: 12-06-2024 End: 07-58-6335Vbuzkzdbt encounterLaura KeyerProMedica Physicians Neurology Comment on above:12/20/24 MAHSA RESCHEDULEStart: 11-23-2024 End: 82-26-8530vwgjzvhjdcMKKONM A [facility] Hospitaltart: 11-22-2024 End: 50-81-8930Jhogvxzpu encounterSatnam BATRES [facility] HospitaloStart: 11-22-2024 End: 64-54-2192Ueytkdlucxty care manage srvc 14 day dischargeJanay Mustafa TEST OPERATOR-SEATING AND MOBILITY TECHNOLOGIST Work Phone: [facility] Physicians Family MedicineComment on above: Seizure disorder (CMS-HCC) (Primary Dx); Focal epilepsy (CMS-HCC); Acute kidney injury (CMS-HCC); Eczema of right handStart: 11-22-2024 End: 01-72-0920yugbudwmnnTIQSEP A [facility] Ambulatory PPG Start: 11-15-2024 End: 73-00-0294Mywkmi OnlyJanay Mustafa TEST OPERATOR-SEATING AND MOBILITY TECHNOLOGIST Work Phone: [facility] Physicians Family MedicineComment on above: Seizure disorder (CMS-HCC) (Primary Dx)Transition Of CareStart: 11-08-2024 End: 95-37-3496zmugvdpdcdDTLQBT VOHRAProMedProtestant Hospital HospitalStart: 11-05-2024 End: 95-43-6881Mkcpzahtrs and management of inpatientSguerlineleroy Jazz Singh DO Work Phone: [facility] - GEN 9 AcuteStart: 11-04-2024 End: 53-22-8310Hisssxear department patient visitMUHAMHOLLEY Schulz ASIFPMedical Center of the Rockies HospitalStart: 11-02-2024 End: 80-14-1021Drnqijozp encounterMaxjulian LlamasSelect Medical [facility] Comment on above:levETIRAcetam (KEPPRA) 750 mg tabletStart: 09-14-2024 End: 80-10-9960Zcficdzsho and management of inpatientNAMEER ALADAMATProMedProtestant Hospital HospitalStart: 09-14-2024 End: 17-64-9844Xnqcjromcm and management of inpatientNAMEER ALADAMATProMedProtestant Hospital HospitalStart: 09-13-2024 End: 86-50-6488Yibecifoip and management of inpatientNAMEER ALADAMATProMedica Hassan HospitalStart: 09-12-2024 End: 64-93-2900usrxadcubrLCDJSumma Health HospitalStart: 09-12-2024 End: 71-45-8238Rwmwlwyxtd and management of inpatientIMRAN I ALIProPomerene Hospitalca Gold Beach HospitalStart: 07-12-2024 End: 56-66-3759Ajdlpo outpatient visit 25 minutesMegha Bragg MD Work Phone: [facility] Physicians NeurologyComment on above: Breakthrough seizure ([facility]-HCC) (Primary Dx); Gastroesophageal reflux disease, unspecified whether esophagitis present; Seizure disorder (CMS-HCC); Eczema, unspecified type; Anxiety; Depression, unspecified depression typeStart: 07-12-2024 End: 99-41-0429nimiehxyrmJRMHLourdes Counseling Center HospitalStart: 07-01-2024 End: 91-24-7208Yxcdtmmvkjcbm procedureKalin AvilaSycamore Medical Center - Acute CareStart: 78-26-8224Eky-patient / Non-visitMD Muhamid Hugo Work Phone: [facility] GroupProv[facility] Med OutPt Work Phone: Start: 04-17-2024 End: 91-34-7518Aidoidemip and management of inpatientMD Muhamid Hugo Work Phone: [facility] Work Phone: Start: 03-20-2024 End: 45-76-8133LcxkydBsfxuvn M Asif MD Work Phone: [facility] Physicians Family MedicineComment on above: AnxietyStart: 02-08-2024 End: 84-15-4852ReovqsIcqktpw M Asif MD Work Phone: [facility] Physicians Family MedicineComment on above: AnxietyStart: 02-02-2024 End: 35-18-2100lbwgqpqctyEFKNP FAZIONot AvailableStart: 01-29-2024 End: 89-99-2472Owtmmw outpatient new 45 minutesRachel D Karchner TEST OPERATOR-SEATING AND MOBILITY TECHNOLOGIST Work Phone: [facility] Physicians NeurologyComment on above:Seizure disorder (CMS-HCC) (Primary Dx); Witnessed seizure-like activity (CMS-HCC); Anxiety; Gastroesophageal reflux disease, unspecified whether esophagitis present; Depression, unspecified depression type; Eczema, unspecified typeStart: 59-12-5012Zyxzmv OnlyOttoniel Arias MD Work Phone: [facility] Physicians Family MedicineComment on above: Seizure (CMS-HCC) (Primary Dx); Muscle crampStart: 51-45-3006Qsdkjsjka department patient visitCleveland Clinic Avon Hospitaltart: 01-06-2024 End: 79-08-9444Vshzsaokj department patient visitThe Surgical Hospital at Southwoodstart: 40-43-7891Xoekfiztm encounterCarlee EastSamaritan Hospital Physicians NeurologyComment on above:New Patient Appt.Start: 11-24-2023 End: 52-67-9700Snukfp outpatient visit 25 minutesOttoniel Arias MD Work Phone: [facility] Physicians Family MedicineComment on above: Anxiety (Primary Dx); Depression, unspecified depression typeStart: 10-26-2023 End: 31-13-4618ppmfryvjrsEAGPX FAZIONot AvailableStart: 10-08-2023 End: 98-87-5330Krsgpq outpatient visit 15 minutesOttoniel Arias MD Work Phone: [facility] Physicians Family MedicineComment on above: Generalized anxiety disorderStart: 08-31-2023 End: 14-66-5473zdvnyzqdplWURQT FAZIONot AvailableStart: 07-22-2023 End: 87-36-1017thqqcashhxLfakvd Dymond Other [place] [employer] Other Start: 44-50-3798Chdszp outpatient visit 15 minutes Barb BondG Urgent Care ClydeStart: 09-25-2022 End: 34-28-4175llfqjlvijzWQ NONE LISTED REQUESTFacility:H1 Procedures DateProcedureProcedure DetailPerforming ClinicianStart: 90-56-0412Ajcgwsgjlcwj chorionic quantitativeKathleen E Pool TEST OPERATOR - CNM Work Phone: Start: 93-01-2477Tz preg uterus real time w/image dcmtn transvagMarcia Susie Gab TEST OPERATOR - SEATING AND MOBILITY TECHNOLOGIST Work Phone: Start: 51-41-3489Kwpo tst prsmv instrmnt chem analyzers pr dateCarminacia Susie Gab TEST OPERATOR - SEATING AND MOBILITY TECHNOLOGIST Work Phone: Start: 34-75-1895Brahg dip stick/tablet reagent auto microscopyThdaphney Barnard MD Work Phone: Start: 06-20-2025 End: 69-20-2017Fsxnrggsnfqje metabolic panelThdaphney Barnard MD Work Phone: Start: 39-10-6663Iyqv tst prsmv instrmnt chem analyzers pr dateTozeke Araiza [place] PA-C Work Phone: Start: 13-67-5894Tkdvs dip stick/tablet reagent auto microscopyTozeke Araiza [facility] Work Phone: Start: 04-12-8408Eejxk metabolic panel calcium total You Jose G [facility] ([facility]- Work Phone: Start: 14-26-0106Diehe depression screening assessment Sharon Lynch TEST OPERATOR-SEATING AND MOBILITY TECHNOLOGIST Work Phone: Start: 28-25-6471Awlqph ecg 1-3 leads w/interpretation & reportUnknown Provider ResultStart: 04-26-2025 End: 44-47-6576Tylww of magnesiumMarcia Susie Gab TEST OPERATOR - SEATING AND MOBILITY TECHNOLOGIST Work Phone: Start: 71-84-2615OWWBS METABOLIC PANEL W/ REFLEX TO MG FOR LOW KMarcia Susie Gab TEST OPERATOR - SEATING AND MOBILITY TECHNOLOGIST Work Phone: Start: 21-17-4898Tgafeuqkks microscopic onlyJames P Terrell PA-C Work Phone: Start: 75-35-7180Dwtvw dip stick/tablet rgnt auto w/o microscopyJames P Terrell PA-C Work Phone: Start: 94-51-9599If abdomen & pelvis w/contrast materialJames P Terrell PA-C Work Phone: Start: 68-92-5919Nlnssttgerymy metabolic panelJames P Terrell PA-C Work Phone: Start: 04-25-2025 End: 61-78-3101Jqn routine ecg w/least 12 lds i&r onlyJames P Terrell PA-C Work Phone: Start: 22-74-5583Mygyxr-up visitFollow-upJUDITH A HEN[facility] WYANDOTTE HOSPITALtart: 68-02-9082[place] depression screening assessmentNicole Cheng RN Start: 62-53-8172Vtieysfteseel metabolic panelSnathan Dennis MD Work Phone: Start: 92-52-7041Wpwbgnknkc exam chest single view Oliverio Dennis MD Work Phone: Start: 36-31-2417YS INFECTIOUS DISEASE RESP, DNA/RNA, 22 TARGETS INCLUDING OLYJMQK9Nozkdnjsoheila Dennis MD Work Phone: Start: 44-65-1756Phrznjryckbhm metabolic Brigitte Dennis MD Work Phone: Start: 95-86-3703Zwv routine ecg w/least 12 lds trcg only w/o i&rDalal Mahmoud PA-C Work Phone: Start: 24-12-0882Hzviwdmynacyp metabolic panelSnathan Dennis MD Work Phone: Start: 53-67-1979Kppysrjbn serum plasma/whole blood Marjorie Curiel MD Work Phone: Start: 69-97-2791Wufzyumrfwdsl metabolic panelSnathan Dennis MD Work Phone: Start: 39-63-6336Ehvfefako serum plasma/whole blood Marjorie Curiel MD Work Phone: Start: 11-08-2024 End: 58-84-4184Pqnj bld gluc mntr dev cleared fda spec home useSparviz Singh DO Work Phone: Start: 23-20-6334Wrhveauyijhxol vitamin b-12Marjorie Curiel MD Work Phone: Start: 05-93-2218Lxyprpo ionizedChristopher Ewry TEST OPERATOR-SEATING AND MOBILITY TECHNOLOGIST Work Phone: Start: 58-81-6386Qgzdv metabolic panel calcium total Marjorie Curiel MD Work Phone: Start: 44-36-1658Qgdcvrjnf serum plasma/whole blood Marjorie Curiel MD Work Phone: Start: 13-47-4686Nqer bld gluc mntr dev cleared fda spec home useSparviz Singh DO Work Phone: Start: 11-07-2024 End: 26-25-8090Gcdlwguzl serum plasma/whole bloodMarjorie Curiel MD Work Phone: Start: 15-76-4027Enwppmmh kinase totalNestor Ramsey MD Work Phone: Start: 11-07-2024 End: 34-52-6209Jdkbrtmy kinase totalMarjorie Curiel MD Work Phone: Start: 82-34-8882KR ANTINEUTROPHIL CYTOPLASMIC ANTB SCREEN EA ANTBChristopher Ewry TEST OPERATOR-SEATING AND MOBILITY TECHNOLOGIST Work Phone: Start: 27-19-2503HP IMMUNOGLOBULIN LIGHT CHAINS FREE EACHChristopher Ewry TEST OPERATOR-SEATING AND MOBILITY TECHNOLOGIST Work Phone: Start: 17-37-0670Rouspcsykkwpj metabolic panelEvan Prielipp TEST OPERATOR-SEATING AND MOBILITY TECHNOLOGIST Work Phone: Start: 08-05-6379WYHVDYKRCUM IN PROCESS EEG TESTING Sol Ramos MD Work Phone: Start: 63-92-5279DHF VIDEO MONITORINGNathalie Mooney MD Work Phone: Start: 11-06-2024 End: 87-64-6573Dtouf-dna/rna gi pthgn multiplex probe tq 12-25Christopher Ewry TEST OPERATOR-SEATING AND MOBILITY TECHNOLOGIST Work Phone: Start: 78-34-7172Djp agent det nucleic acid clostridium amp probeClmaureen Merrill MD Work Phone: Start: 11-06-2024 End: 69-07-5338Criwmjvdfjjpa metabolic panelEvan Prielipp TEST OPERATOR-SEATING AND MOBILITY TECHNOLOGIST Work Phone: Start: 21-37-4494Dqgxf dip stick/tablet rgnt auto w/o microscopyMarie Schulz Francisco Tongxue Work Phone: Start: 80-87-7018Xjthkrnargx antibodies Martínez Schulz Francisco DO Work Phone: Start: 23-83-3318Jukg ia hiv-1 ag w/hiv-1 & hiv-2 antbdy Pia Schulz [employer] Work Phone: Start: 87-40-6222YNK VIDEO MONITORING IN PROGRESSNathalie Mooney MD Work Phone: Start: 11-05-2024 End: 02-50-8086Qevmmjm ionizedEvan Prielipp TEST OPERATOR-SEATING AND MOBILITY TECHNOLOGIST Work Phone: Start: 74-59-0133Slzd bld gluc mntr dev cleared fda spec home Vianca Singh DO Work Phone: Start: 64-55-7964Oprwy metabolic panel calcium total Richard Prielipp TEST OPERATOR-SEATING AND MOBILITY TECHNOLOGIST Work Phone: Start: 53-14-4493Jkjq screen quantitative vancomycin Richard Prielipp TEST OPERATOR-SEATING AND MOBILITY TECHNOLOGIST Work Phone: Start: 30-45-6369Qanf bld gluc mntr dev cleared fda spec home Vianca Singh DO Work Phone: Start: 78-35-6708Meffjcqw kinase totalEvan Prielipp TEST OPERATOR-SEATING AND MOBILITY TECHNOLOGIST Work Phone: Start: 90-48-3325Wjxxy gases any combination ph pco2 po2 co2 fyq6Qhcxcbgrayson Singh DO Work Phone: Start: 83-77-5962FKI VIDEO MONITORING IN PROGRESSNathalie Mooney MD Work Phone: Start: 80-64-6209BIXTiyok Patel MD Work Phone: Start: 65-40-6804Ennqzelxsyp timeNathalie Mooney MD Work Phone: Start: 27-53-9382Rwxw screen quantitative vancomycin Richard Prielipp TEST OPERATOR-[facility] Work Phone: Start: 11-05-2024 End: 61-84-5654Mwrqumbwy not otherwise specifiedEvan Prielipp TEST OPERATOR-[facility] Work Phone: Start: 63-13-3284Gfdvn depression screening assessment Janay Mustafa TEST OPERATOR-[facility] Work Phone: Start: 11-05-2024 End: 88-40-9930Ejstqduvrxmzz metabolic panelEvan Prielipp TEST OPERATOR-[facility] Work Phone: Start: 26-97-9975MH INFECTIOUS DISEASE RESP, DNA/RNA, 22 TARGETS INCLUDING ARQOVSX8Pgjm Prielipp TEST OPERATOR-[facility] Work Phone: Start: 82-63-1968Rnnfi depression screening assessment Cherry LlamasStart: 59-67-3220Jvjhrm-up visitFollow-upEHAD AFREENStart: 96-07-7063Slsyr depression screening assessmentOttoniel Arias MD Work Phone: Start: 75-68-9782Hfmrm depression screening assessment Ottoniel Arias MD Work Phone: Plan of Treatment DateCare ActivityDetailAuthorStart: 43-28-2227Jgsvybtbfcm Syncytial Virus (RSV) or age 60 yrs+ (1 - 1-dose 75+ series)Respiratory Syncytial Virus (RSV) or age 60 yrs+ (1 - 1-dose 75+ series)[facility]: 35-65-5011XLhP,Tdap and Td Vaccines (8 - Td or Tdap)DTaP,Tdap and Td Vaccines (8 - Td or Tdap)[facility]: 67-14-4181ADvW/Tdap/Td vaccine (8 - Td or Tdap)DTaP/Tdap/Td vaccine (8 - Td or Tdap)[facility]: 96-36-2643Skfjjmy ScreeningTobacco ScreeningMarymount Hospital SystemStart: 85-60-9039Jgvpn BMI ScreeningAdult BMI ScreeningMarymount Hospital SystemStart: 16-43-5908Nqgwlvzcfd ScreeningDepression ScreeningThe University of [facility] Medical Centerca [facility] SystemStart: 17-97-1888Pukzhms ScreeningTobacco ScreeningThe University of Tol[facility] Medical Centerca Health SystemStart: 38-82-1618Tevbm BMI ScreeningAdult BMI ScreeningThe University of Tol[facility] Medical Centerca Health SystemStart: 30-11-5041Kuqovoz ScreeningTobacco ScreeningProPomerene Hospitalca Health SystemStart: 23-70-3733Gzkkl BMI ScreeningAdult BMI ScreeningThe University of Toledo Medical Centerca Health SystemStart: 99-20-3306Zlmywbs ScreeningTobacco ScreeningThe University of [facility] Medical Centerca Health SystemStart: 42-86-5008Gmbjw BMI ScreeningAdult BMI ScreeningThe University of [facility] Medical Centerca Health SystemStart: 61-10-7290Sleozec ScreeningTobacco ScreeningThe University of [facility] Medical Centerca Health SystemStart: 28-44-9844Dhghq BMI ScreeningAdult BMI ScreeningThe University of [facility] Medical Centerca Health SystemStart: 35-42-5919Bigwndqzyk ScreeningDepression ScreeningThe University of [facility] Medical Centerca [facility] SystemStart: 84-62-8008Qjydbdr ScreeningTobacco ScreeningThe University of [facility] Medical Centerca Health SystemStart: 73-00-7400Exyzt BMI ScreeningAdult BMI ScreeningThe University of Toledo Medical Centerca [facility] SystemStart: 11-07-2025 End: 57-26-3929Rndixrc encounter gyyokogos56/03/2026 9:30 AM EST Office Visit [facility] [address] [place] [address] [place] [address] Ottoniel Arias MD [address] [place] [address], [facility] [place] [address] [facility] MedicineStart: 68-48-5191Xwwczhinon ScreeningDepression ScreeningProMedica Health SystemStart: 01-82-1018Cykhbil ScreeningTobacco ScreeningProMedica Health SystemStart: 09-20-2025 End: 14-30-8553Unnyumn encounter qzvoqjiqu56/17/2025 10:10 AM EST Office Visit [facility] OB[facility]YNECOLOGY Part of [address] [place], [place] [id number] Jennifer Connors, TEST OPERATOR - CNM27 [facility] [address] [place] [address] [facility] OBSTETRICS & GYNECOLOGY Part of [facility] Comment on above:AnnualStart: 70-75-3288Ncfxqzdqwe ScreeningDepression Screening ProMLincoln County Hospitaltart: 97-32-2770Qhsrpiy ScreeningTobacco Screening [facility]tart: 07-18-2025 End: 06-55-2110Qxikiaz encounter ybhouqvcb51/14/2025 10:00 AM EDT Office Visit [facility] [place] [address] Bryant Hines, RODERICK [address] [facility] [address] [place] [address] [facility] Medical Centertart: 22-20-5885Yplanye ScreeningTobacco ScreeningProMedica Health SystemStart: 12-49-4801Xjyvv BMI Follow Up PlanAdult BMI Follow Up Plan ProMRed [facility] SystemStart: 45-51-1924Zzkzs BMI ScreeningAdult BMI Screening [facility] SystemStart: 35-82-8814Qynwatl ScreeningTobacco Screening [facility] SystemStart: 69-43-7970LpfboProMedica Bay Park Hospitaltart: 34-01-6831Fnojxgsu identified in Urine by CultureUrine Culture [facility] Hospitaltart: 99-96-0998KUNOH-19 Vaccine ( season)COVID-19 Vaccine ( season)[facility] HospitalStart: 33-62-8305Iktsbucfm vaccinationInfluenza VaccineProPromedica [facility] SystemStart: 05-19-2025 End: 49-21-1520Pgxmc metabolic 2000 panel - Serum or PlasmaBasic Metabolic Panel Lab Routine Hypokalemia RAKESH (acute kidney injury) Expected: 05/19/2025 (Approx imate), Expires: 05/05/2026[facility] Work Phone: Comment on above:Expected: 05/19/2025 (Approximate), Expires: 05/05/2026Start: 87-60-7175Amlykxzjq vaccinationFlu vaccine (#1)[facility] HospitalStart: 05-05-2025 End: 56-38-3686Lbtsggm encounter /01/2025 10:40 AM EDT Office Visit [facility] [address] [place] [address] Sharon Lynch APRN-CNP [address] [place] [address] [facility] MedicineStart: 07-63-6313Qorkp BMI ScreeningAdult BMI ScreeningMarymount Hospital SystemStart: 22-85-6764Hwaugif ScreeningTobacco ScreeningMarymount Hospital System Start: 03-15-2025 End: 71-97-5954ccofwvbflq98/11/2025 4:20 PM EDT Lab [facility] Lab [address] [place] [address] QpyKpwyxiMercy Health - LabStart: 03-15-2025 End: 94-44-8826Xejlujo encounter wkvhytnlf47/11/2025 10:30 AM EDT Office Visit [facility] [address] [place] [phone] Bryant Hines PA-C [address] [place] [address] [facility] Medical Centertart: 81-52-4971Sgdkr BMI ScreeningAdult BMI Screening ProMusa health providence hospitala Health SystemStart: 63-34-2865Vwtfwhm ScreeningTobacco Screening ProMusa health providence hospitala Health SystemStart: 32-06-1512Yejpo BMI ScreeningAdult BMI Screening ProMusa health providence hospitala Health SystemStart: 49-91-4813Jejacsi ScreeningTobacco Screening ProMusa health providence hospitala [facility] SystemStart: 01-05-2025 End: 94-73-9075Saqktfi encounter sehwowgqf55/03/2025 9:00 AM EDT Office Visit [facility] [address] [place] [phone] Ottoniel Arias MD [address] [facility] [place] [address] [facility]tart: 24-78-1791Lsndq BMI ScreeningAdult BMI ScreeningSelect [facility] Health SystemStart: 75-44-4041Esadtjl ScreeningTobacco ScreeningMarymount Hospital SystemStart: 12-21-2024 End: 14-79-9868Kqfkgdp encounter akmqvlguy68/19/2025 10:30 AM EDT Office Visit [facility] [place] [address] [facility] [place] [phone] Megha Bragg MD [address] [facility], [address] [place] [phone] Bryant Hines PA-C [address] [place] [address] [facility] Medical Centertart: 12-20-2024 End: 77-15-6736yvnbwjmrikCexBrcrrm Physicians Neurology [facility] Medical Centertart: 12-20-2024 End: 80-85-9276Detbiee encounter procedureProPomerene Hospitalca Physicians NeurologyStart: 16-97-5394Rtezbcglhm ScreeningDepression ScreeningProPromedica [facility]oria [facility] Hospital SystemStart: 60-21-9607Uuardlw ScreeningTobacco ScreeningProPromedica [facility] SystemStart: 11-22-2024 End: 67-62-6298Stkywqe encounter dcepmydsd21/18/2025 11:00 AM EST Office Visit [facility] [address] [place] [address] Janay Mustafa, TEST OPERATOR-SEATING AND MOBILITY TECHNOLOGIST [address] [place] [address] ProMOhioHealth [facility] MedicineStart: 11-19-2024 End: 50-81-9220Isvew metabolic 2000 panel - Serum or PlasmaBasic Metabolic Panel Lab Routine Seizure disorder ([facility]-H[facility]) Expected: 11/19/2024 (Approximate), Exp ires: 11/15/2025[facility] Work Phone: Comment on above:Expected: 11/19/2024 (Approximate), Expires: 11/15/2025Start: 11-19-2024 End: 36-93-1489SJ TotalCK Total Lab Routine Seizure disorder ([facility]-H[facility]) Expected: 11/19/2024, Expires: 11/15/2025ProPromedica Fostoria Community Hospital SystemComment on above: Expected: 11/19/2024, Expires: 11/15/2025Start: 09-93-4451Euipbjl Screening Tobacco ScreeningProPromedica Fostoria Community Hospital SystemStart: 44-93-1852Hpeyn BMI Screening Adult BMI ScreeningMarymount Hospital SystemStart: 07-12-2024 End: 22-30-5024Ksmzphp encounter glasqzclk44/08/2024 4:00 PM EDT [facility] [address] [place] [address] Megha Bragg MD [address] [place] [address], [address] [place] [phone] [facility] NeurologyStart: 06-24-2024 End: 96-33-2162Nsfvbix encounter khgupnfoa79/20/2024 2:30 PM EDT Office Visit [facility] [address] [place] [address] Megha Bragg MD [facility], [address] [place] [phone] [facility] NeurologyStart: 40-93-9177OYYWQ-19 Vaccine ( season)COVID-19 Vaccine ( season)[facility] HospitalStart: 04-55-1128Jsbqcwrij vaccinationInfluenza VaccineSelect Medical [facility] Inc Health SystemStart: 24-90-5743CksbvbkmoSamaritan Hospital Start: 67-46-5011Bltwlnkf admissionGerman Hospitaltart: 31-16-6590WlgsobtslGerman Hospitaltart: 03-18-2024 End: 78-55-9418Mjdzzdz encounter puubivcjp01/14/2024 1:15 PM EDT Office Visit [facility] [address] [place] [phone] Ottoniel Arias MD [address] [place] [address] [facility] MedicineStart: 01-29-2024 End: 78-53-8088Yutsowd encounter zefskhhes48/26/2024 1:30 PM EDT Office Visit [facility] [address] [address] Samantha Keyes, TEST OPERATOR-SEATING AND MOBILITY TECHNOLOGIST [address] [place] [address] Megha Bragg MD [address] [place] [address], [address] [place] [address] [phone] (Work) [facility] NeurologyStart: 01-07-2024 End: 02-70-7053VTG W Auto Differential panel - BloodCBC auto differential Lab Routine Seizure (CMS-HCC) Muscle cramp Expected: 01/07/2024 (Approximate), Expires: 01/06/2025[facility] Work Phone: Comment on above:Expected: 01/07/2024 (Approximate), Expires: 01/06/2025Start: 01-07-2024 End: 38-71-5876Xifcanbrkegwp metabolic 2000 panel - Serum or PlasmaComprehensive metabolic panel Lab Routine Seizure (CMS-HCC) Muscle cramp Expected: 01/07/2024 (Approximate), Expires: 01/06/2025[facility] SystemComment on above: Expected: 01/07/2024 (Approximate), Expires: 01/06/2025Start: 01-07-2024 End: 25-84-3969Chwhxunla [Mass/volume] in Serum or PlasmaMagnesium Lab Routine Seizure (CMS-HCC) Muscle cramp Expected: 01/07/2024 (Approximate), Expires: [facility] Health SystemComment on above:Expected: 01/07/2024 (Approximate), Expires: 01/06/2025Start: 01-07-2024 End: 99-52-4269Avvqqbgoy [Mass/volume] in Serum or PlasmaPhosphorus Lab Routine Seizure (CMS-HCC) Muscle cramp Expected: 01/07/2024 (Approximate), Expires: 0 01/06/2025[facility] SystemComment on above:Expected: 01/07/2024 (Approximate), Expires: 01/06/2025Start: 01-07-2024 End: 52-18-0390GTZ with ReflexTSH with Reflex Lab Routine Seizure (CMS-HCC) Muscle cramp Expected: 01/07/2024 (Approximate), Expires: 01/06/2025[facility] SystemComment on above:Expected: 01/07/2024 (Approximate), Expires: 01/06/2025Start: 91-30-9496Meueqmrorj ScreeningDepression ScreeningUNC Health Rockinghamtart: 89-56-7017Dmmrqmgah vaccinationInfluenza VaccineUNC Health Rockinghamtart: 05-07-8797Fxjjtkyre for malignant neoplasm of cervixPap SmearUNC Health Rockinghamtart: 05-57-2382Ugmdawnxy B vaccine (1 of 3 - 19+ 3-dose series)Hepatitis B vaccine (1 of 3 - 19+ 3-dose series)[facility] HospitalStart: 17-20-2958Mlvan BMI Follow Up PlanAdult BMI Follow Up PlanUNC Health Rockinghamtart: 46-02-2470Nrcduhzet C screeningHepatitis C screenBon [facility] HospitalStart: 74-12-0971ADF screeningHIV screenBon [facility] Systemart: 33-58-6412Kmlofgapf A vaccine (2 of 2 - 2-dose series)Hepatitis A vaccine (2 of 2 - 2-dose series)[facility] HospitalStart: 49-36-4501ANH vaccine (2 - 2-dose series)HPV vaccine (2 - 2-dose series)[facility] Hospitalart: 92-83-8163Vcxdzkljuq ScreenDepression ScreenBon [facility] HospitalStart: 82-64-0874Tojdrpjxc vaccine (2 of 2 - 2-dose childhood series) Varicella vaccine (2 of 2 - 2-dose childhood series)[facility] Start: 06-22-4474Hjfuqtcgh for Chlamydia trachomatisChlamydia ScreeningUNC Health Rockinghamtart: 64-86-4853Oduxwdb CounselingTobacco CounselingAdena Pike Medical Center End: 41-98-1272Lncqy metabolic 2000 panel - Serum or PlasmaBasic Metabolic Panel Lab Routine Seizure disorder (CMS-HCC) 1 Occurrences starting 03/15/2025 until 03/15/2026A[facility] Medical CenterComment on above:1 Occurrences starting 03/15/2025 until 03/15/2026 End: 91-29-6552Hacnu Metabolic Panel w/ Reflex to MGBasic Metabolic Panel w/ Reflex to MG Lab Routine Daily for 3 Days starting 04/26/2025 until 04/28/2025, 1 completedInova Health System [email or web address] on above:Daily for 3 Days starting 04/26/2025 until 04/28/2025, 1 completed End: 61-82-7641Y-reactive proteinC-reactive protein Lab Routine Seizure ([facility]- HCC) Muscle cramp 1 Occurrences starting 01/07/2024 until 01/06/2025[facility] Health SystemComment on above:1 Occurrences starting 01/07/2024 until 01/06/2025 End: 51-52-1500IFZ W Auto Differential panel - BloodProPomerene HospitalVerdigris Technologies Health System End: 37-28-9678YUF W Auto Differential panel - BloodCBC with Auto Differential Lab Routine Daily for 3 Days starting 04/26/2025 until 04/28/2025, 1 completed [facility] N42 MeteorCommclaren oakland on above:Daily for 3 Days starting 04/26/2025 until 04/28/2025, 1 completed End: 48-51-1146EE [employer]Pro[employer] System End: 55-72-6678WV TotalCK Total Lab Routine Seizure ([facility]) Muscle cramp 1 Occurrences starting 01/07/2024 until 01/06/2025ProMediEchelon SystemComment on above:1 Occurrences starting 01/07/2024 until 01/06/2025 End: 41-06-6551Yqneuzoznynif metabolic 2000 panel - Serum or PlasmaProMedica Work Phone: End: 89-58-2427Eesrui monitor studyProMedica Work Phone: End: 70-89-8788Wrurqo monitor studyLong Term Monitoring for Epilepsy / LTME 5 Day Neurology Routine Breakthrough seizure ([facility]-HCC) Seizure disorder ([facility]) 1 Occurrences starting 07/12/2024 until 07/12/2025[facility] Work Phone: Comment on above:1 Occurrences starting 07/12/2024 until 07/12/2025Ionized calciumProMedica Work Phone: End: 13-83-6678OOIQCY Lab Routine Seizure ([facility]-HCC) Muscle cramp 1 Occurrences starting 01/07/2024 until 01/06/2025[facility] Health SystemComment on above:1 Occurrences starting 01/07/2024 until 01/06/2025 End: 80-06-8088Cgnxjxeaorgod LevelBon ZendriveComment on above:One Time for 1 Occurrences starting 04/26/2025 until 04/26/2025 End: 17-70-2178Tovwnqbxznbgz, SLevetiracetam, S Lab Routine Seizure disorder ([facility]-HCC) 1 Occurrences starting 03/15/2025 until 03/15/2026[facility] Work Phone: Comment on above:1 Occurrences starting 03/15/2025 until 03/15/2026 End: 16-95-7173Wuovpgmwq [Mass/volume] in Serum or PlasmaProMedica Health System End: 71-88-6261Sbayyvtoc, serumProMedica Health SystemOxygen Therapy - Maintain SpO2: 90%; *TOP LIFT AND AUTOMATIC 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 Work Phone: Patient [facility] Work Phone: End: 85-40-8114Rwvizqgfq [Mass/volume] in Serum or PlasmaProMedica Work Phone: End: 20-09-9676Tyatopfoh [Moles/volume] in Serum or PlasmaProMedica Health System End: 08-33-0942Xtepyozak [Moles/volume] in Serum or PlasmaProMedica Health System End: 98-33-1872Ruzoadjnl levelProlactin level Lab Routine Seizure ([facility]) Muscle cramp 1 Occurrences starting 01/07/2024 until 01/06/2025[facility] SystemComment on above:1 Occurrences starting 01/07/2024 until 01/06/2025 Immunizations Immunization DateImmunizationNotesCare DplynplcUkyjrewl36-30-4489ahskvnscubszp polysaccharide (groups A, C, Y and W-135) diphtheria toxoid conjugate vaccine (MCV4P)Ottoniel Arias MD Work Phone: [facility]08-14-2017tetanus toxoid, reduced diphtheria toxoid, and acellular pertussis vaccine, adsorbedOttoniel Arias MD Work Phone: [facility] CenterZwlhsi53-96-1576aqvgxsfms A vaccine, pediatric/adolescent dosage, 2 dose scheduleOttoniel Arias MD Work Phone: [facility]09-12-2012human papilloma virus vaccine, quadrivalentOttoniel Arias MD Work Phone: [facility]09-12-2012tetanus toxoid, reduced diphtheria toxoid, and acellular pertussis vaccine, adsorbedOttoniel Arias MD Work Phone: [facility] CenterUwikfb57-36-7118bnxnxwrpem, tetanus toxoids and acellular pertussis vaccine, unspecified formulationOttoniel Arias MD Work Phone: [facility]08-04-2005measles, mumps and rubella virus vaccineOttoniel Arias MD Work Phone: [facility] CenterUbblpj69-89-1608ehjwsmmewjdq conjugate vaccine, 7 valentOttoniel Arias MD Work Phone: [facility] CenterRjjlsv63-13-3926yneczwxqvn vaccine, inactivatedMuadrienne Arias MD Work Phone: [facility] CenterVtfxqq52-63-9356sskinpnfw virus vaccineOttoniel Arias MD Work Phone: [facility] Work Phone: [phone]nn, tetanus toxoids and acellular pertussis vaccine, unspecified formulationOttoniel Arias MD Work Phone: [facility] CenterOmebkc76-96-8947xloggadmxam influenzae type b vaccine, conjugate unspecified formulationOttoniel Arias MD Work Phone: [phone]07-11-2001measles, mumps and rubella virus vaccineMuhamid Hugo PANG Work Phone: [phone] CenterDnzouu56-44-2258tsixkqqtjq, tetanus toxoids and acellular pertussis vaccine, unspecified formulationMuhamid Hugo PANG Work Phone: [facility] CenterLfjcfp00-61-0334dxbfbjfjn B vaccine, pediatric or pediatric/adolescent dosageMuadrienne Arias MD Work Phone: [phone] CenterWpoita45-44-1439hiuwzpgnpn vaccine, inactivatedMuhamid Hugo PANG Work Phone: [phone]22[facility] CenterHouvlx75-24-0233gyjlbzvhdn, tetanus toxoids and acellular pertussis vaccine, unspecified formulationMuhamid Hugo PANG Work Phone: [phone] CenterPgwzug37-49-2217faboueryseh influenzae type b vaccine, conjugate unspecified formulationMuadrienne Arias MD Work Phone: [phone] CenterWfzcwa63-58-5740gfhfesvot B vaccine, pediatric or pediatric/adolescent dosageMuadrienne Arias MD Work Phone: [phone] CenterMjsqud15-69-1927zmixwcqyoa vaccine, inactivatedMuadrienne Arias MD Work Phone: [phone] CenterHzcwyq78-78-8574sjxpdiyiiz, tetanus toxoids and acellular pertussis vaccine, unspecified formulationMuadrienne Arias MD Work Phone: [phone] CenterShscsx81-63-4625nkytnnpqsdt influenzae type b vaccine, conjugate unspecified formulationMuhamholley Arias MD Work Phone: [facility] CenterWwpozu53-87-7036rrvyxqhej B vaccine, pediatric or pediatric/adolescent dosageMuadrienne Arias MD Work Phone: [phone] CenterJufpld09-06-6209vtqntewgww vaccine, unspecified formulationMuadrienne Arias MD Work Phone: [facility] CenterOysjjt93-15-8037mhkfywzcu B vaccine, pediatric or pediatric/adolescent dosageMuadrienne Arias MD Work Phone: [facility] CenterAevi Inc.NEGATED: Highlighted row has not occurred!79-08-3828Wimzrrejk Vaccine, Quadrivalent, AdjuvantedMuhamid Hugo PANG Work Phone: [facility] CenterAevi Inc.Comment on above:Deferred: Patient decision Payers DatePayer CategoryPayerPolicy [id number] Care Other (unspecified) [id number] Health Insurance [facility] CHOICE PLUS [id number] 2022-Present [phone] [address] [address] [place] [address] [id number] Health Insurance [id number] 2.16.840.8.14020[id number] 2.16.840.1.007081.3.57[id number] 2.16.840.1.516076.3.57[id number] 2..840.1.856192.3.57[id number] 2.16.840.1.319532.3.57[id number] 2.16.840.1.339183.3.57[id number] 2.16.840.1.962376.3.57[id number] 2.16.840.1.266620.3.57[id number] 2.16.840.1.646138.3.57[id number] 2.16.840.1.371387.3.57[id number] 2.16.840.1.567591.3.57[id number] 2.16840.1.004173.3.57[id number] 2.16840.1.626946.3.57[id number] 2.840.1.129632.3.57[id number] 2.840.1.843363.3.579.[id number] 2.840.1.877183.3.57[id number] 2.840.1.232417.3.579.[id number] 2.16840.1.869263.3.57[id number] 2.840.1.035942.3.57[id number] 2.840.1.903029.3.57[id number] 2.840.1.532929.3.57[id number] 2.16840.1.385429.3.57[id number] 2.16840.1.826259.3.579.[id number] 2.16.840.1.588435.3.57[id number] 2.16.840.1.770837.3.57[id number] 2.16.840.1.964822.3.57[id number] 2.16.840.1.163814.3.57[id number] 2.16.840.1.456808.3.57[id number] 2.16.840.1.346087.3.579.2.46900-47-7034Zfzjayk11170407 2.16.840.1.191270.3.579.2.27038-41-5873Yprqbwn24493107 2.16.840.1.398956.3.579.2.87332-84-1216Dhbmplg87175372 2.16.840.1.420539.3.579.2.39197-69-9121Dyhtycm14676835 2.16.840.1.769078.3.579.2.50195-10-3903Ccqcijk0085585 2.16.840.1.285570.3.579.2.51431-10-7579Ukng-gnbFsegirf99460936 2.16.840.1.527516.[id number] 2.16840.1.391036.3.579.2.531 Social History DateTypeDetailFacilityUnknown if ever smokedONFocus Healthcare Other Start: 09-12-2024 End: 25-74-0791Qzd Assigned At BirthNoQuietStream Financial Other Start: 58-82-9371Gcbulqg smoking status NHISUnknown if ever smokedGerman Hospitaltart: 09-13-7296Fvl Assigned At BirthFeMercy Health Willard Hospitaltart: 66-11-2243Yeovoll smoking status NHISSmokes tobacco dailyMarymount Hospital System End: 94-13-6380Xkzzxbo of tobacco useCigarette SmokerMarymount Hospital System Start: 07-12-2024 End: 20-20-2340Zxxzvzg use and exposureSmokeless tobacco non-userMarymount Hospital SystemStart: 09-12-2024 End: 96-06-1535Tuyizeuzi beverage intakeEx-drinker (finding)[facility] SystemStart: 09-12-2024 End: 04-89-3865Fqqppjx of Social functionAdena Pike Medical CenterHas the electric, gas, oil, or water company threatened to shut off services in your home in past 12MoNAvita Health System Ontario Hospital SystemHow often to you have a drink containing alcohol?NeverAdena Pike Medical CenterHow many standard drinks containing alcohol do you have on a typical day?Patient does not drinkMarymount Hospital SystemStart: 68-05-4931Ovzuoqb CommentPatient just found out she was [facility] SystemStart: 09-50-8029Mkx assigned at birthNot on file [facility] Meteor [facility] Hospitaltart: 05-10-2015 End: 21-33-8428XuiKohedk (finding)[facility] SystemStart: 01-29-2024 End: 07-72-4066Yuvigiy smoking status NHISEx-smokerMarymount Hospital System End: 24-27-4563Frueffn of tobacco useCurrent smokerMarymount Hospital SystemStart: 11-05-2024 End: 70-56-6718Satmtdacq beverage intakeCurrent drinker of alcohol (finding) [facility] SystemHow often to you have a drink containing alcohol?2-4 times a monthMarymount Hospital SystemHow many standard drinks containing alcohol do you have on a typical day?1 or 2PChillicothe Hospital SystemStart: 11-05-2024 Alcohol Commentx1/weekMarymount Hospital SystemHow hard is it for you to pay for the very basics like food, housing, medical care, and heatingNot very hard [facility] Meteor SystemStart: 08-77-2611Zgktaqi CommentrarelyPChillicothe Hospital SystemStart: 77-34-9276GqalnkttyIglWtwgwf Health SystemStart: 55-48-0060Roawzye smoking status NHISNever smoked tobaccoPhoenix Children'S Hospital Zendrive(I/We) worried whether (my/our) food would run out before (I/we) got money to buy more.Never trueBon [facility] Medical CenterArkleus Broadcasting [facility] Goals DatePatient GoalDesired Activity/StatePersonal health goalComment on above: Evaluation of progress towards goal: Plan to return home with spouse. Functional Status KbplEjfxpuidsgJuxbueJxwhugye38-48-6117Gpjsnhfodo statusPatient at Baseline [facility] Work Phone: [phone]aat statusDisability Status Patient Not at BaselinePromedica Flower Hospital Work Phone: [facility] Mental Status NboyAgltowrsfrQasldqMjdmfuia32-80-5147Xeqgjgnio functionCognitive Status Patient at BaselinePromedica Flower Hospital Work Phone: Clinical Notes 07-22-2023 to 06-20-2025 Note Date & FggyKkawEqhchxgs46-30-4786 Hospital Discharge instructions* Discharge Instructions* Jocelyn De Guzman APRN - CNP - 06/20/2025 2:57 PM EDT Please call [facility] tomorrow for outpatient follow-up. Your ultrasound today shows a small structurewithin the uterus difficult to determine if this is early versus miscarriage. You will need to have blood work repeated to ensure progression of . I recommend that you stop smoking marijuana as this is likely contributing to the nausea, vomiting and abdominal pain that you are experiencing. * Attachments The following attachments cannot be sent through Care Everywhere. * Cannabinoid Hyperemesis Syndrome (Colombian) documented in this encounterBon [facility]08-22-2025 Miscellaneous Notes* Telephone Encounter - Lacy Sanches CNA - 05/26/2025 8:49 AM EDT Attempted to call patient with no answer. Left voicemail to call office. ----- Message from VIJAYA Schaefer sent at 05/22/2025 7:48 PM EDT ----- Labs are wnl ----- Message ----- From: Lab, Background User Sent: 05/19/2025 6:41 PM EDT To: VIJAYA Schaefer documented in this encounterAdena Pike Medical Center08-22-2025 Telephone encounter Note* Telephone Encounter - Lacy Sanches CNA - 05/26/2025 8:49 AM EDT Attempted to call patient with no answer. Left voicemail to call office. ----- Message from VIJAYA Schaefer sent at 05/22/2025 7:48 PM EDT ----- Labs are wnl ----- Message ----- From: Lab, Background User Sent: 05/19/2025 6:41 PM EDT To: VIJAYA Schaefer [facility]08-01-2025 History of Present illness Narrative* VIJAYA Schaefer - 05/05/2025 10:40 AM EDT Subjective Patient ID: Yolanda Villanueva is a 25 y.o. female. The patient is here today for discharge followup from hospital. Transition of Care Med Rec completed? Yes Discharged medications: Medications have been reviewed and reconciled with the most recent facilitydischarge document. SUDHA Guerrero presents to the office for hospital discharge follow up. She was admitted to [facility] for hyperemesis cannabis syndrome. She had been vomiting for a week prior to coming to the emergency room on04/25/2025. She was given Inapsine which helped calm things down. ER workup did show hypokalemia andacute kidney injury she was therefore admitted for dehydration and observation. She had history of seizures and during her hospitalization she was monitored. She admitted that she had not been takingKeppra routinely. It appeared she did have a focal seizure while hospitalized. She stayed overnightand electrolytes had improved as well as kidney function. She was discharged to home with Zofran and encouraged to take her Keppra regularly and follow up with Neurology. She was instructed to avoid smoking marijuana. She had follow up with Neurology on 04/28/2025, she was no longer vomiting she was able to take herKeppra regularly. She continues on Keppra 500 mg [...] past medical history, past social history, past surgicalhistory, problem list, and medication reconciliation was completed including current medication andpost discharge medication. Review of Systems Constitutional: Negative [...] VIJAYA Schaefer 05/07/25 1321 documented in this encounterAdena Pike Medical Center07-25-2025 History of Present illness Narrative* Bryant Hines PA-C - 04/28/2025 1:30 PM EDT [facility] Neurology Office Note 04/26/2025 2:10 PM Patient info: Yolanda Villanueva is a 25 y.o. female Account No.: [id number] Acct: : 2000 PCP: OTTONIEL ARIAS MD [...] presence of generalized predominantly paracentral slow waves withtriphasic morphology and generalized background slowing consistent with bihemispheric cerebral dysfunction that may be seen in postictal states, hypoxic, toxic or metabolic abnormalities, sedative med ications use or primary neurological disorders. 11/04/24: CT [...] a suicide attempt. Also history of previous suicidalattempts. - has continued to have nocturnal convulsions. [...] the same time it seems she was havinglower facial twitching however only the lips seemed to be involved, almost pouting, with alternative twitching noticed of both angles of the mouth, with variable rhythmicity. There were no abnormal movements of the eyes appreciated, her eyes being semi open throughout the episode. The convulsions lasted out 1.5 minutes at the end of fish the twitches seemed to slow down and eventually stopped. Atthat time the patient appeared to be resting [...] however the patient reports she did bite hertongue a few times. Last nocturnal convulsion was a few days ago. - the patient is currently seeing a psychiatrist and counselor, however has not informed them that she is having seizures. She is currently seeing them for poorly controlled anxiety and mood disorders. 11/05/24 Patient initially presented to outside hospital for concerns of recurrent seizures at home. Historyis mainly obtained per chart review and family [...] another episode of seizure-like activity. Additionally, spouse statesthat he also thinks that the patient may [...] be tachycardic and tachypneic with initial labs remarkablefor elevated WBC count of 40, hyponatremia of 130, hypokalemia of 2.8, CK of 26,000, procalcitonin 40, rapid lactate of 2.9, and negative COVID and flu. A CT brain was obtained which she was negativefor any acute intracranial abnormalities. CT abdomen and pelvis showed possible colitis/enteritis. At outside hospital a bedside lumbar puncture was attempted however failed. Patient was started on empiric antibiotics for possible meningitis as well as colitis/enteritis. Patient was then transferred to [facility] for further management. Follow up 12/21/24 Discharged [...] temporal. Recent breakthrough seizure secondary to lack ofKeppra intake due to hyperemesis syndrome. PLAN: Continue [...] Hines PA-C 04/28/25 1409 documented in this encounterAdena Pike Medical Center07-23-2025 History of Present illness Narrative* Jo Berry RN - 04/26/2025 4:46 PM EDT Discharge instructions, medications, and follow up appointments reviewed with the patient and appropriate educational materials and side effects teaching were provided. * Jo Berry RN - 04/26/2025 10:49 AM EDT Patient up to bathroom at this time. Gait steady. States she feels better after zofran. Mom at bedside. IV potassium continues to infuse per protocol. Will continue to monitor. * Jo Berry RN - 04/26/2025 9:[address] Dumas notified of transfer to ICU and seizure this morning. * Veronique Lyn RN - 04/26/2025 9:09 AM EDT Report given to Daisy SANTIAGO and patient transferred to ICU * Veronique Lyn RN - 04/26/2025 8:46 AM EDT Patient's visitor calls out to singh for help at this time. [employer] Bi Developer to bedside. Patient noted to be having a seizure, automobile and property underwriter requested additional staff at bedside. Multiple RNs, Vashti RN chick room supervisor, Mari auto body shop manager, and Jocelyn CHARLTON all at bedside. Patient was positioned to left side. HR 122, BP 150/73, SPO2 97%. Patient is able to speak to automobile and property underwriter and follow commands following seizure. * Veronique Lyn RN - 04/26/2025 6:42 AM EDT [employer] Developer to bedside for morning assessment. Patient is resting in bed. Patient is A&O x4. Breathing is regular and unlabored. Abdomen is soft and tender, patient reports generalized abdominal aching. Patient does report feeling nauseous. Patient states zofran does not work for her, automobile and property underwriter will request new orders. Patient denies further needs at this time. Call light is within reach. Care ongoing. * Hellen Camilo RN - 04/25/2025 8:45 PM EDT Patient A&O x4, calm, and cooperative. Vital signs and head to toe assessment completed at thistime, see flowsheets for details. Patient was briefly educated on medications due tonight. Patient denies needs at this time. Call light within reach. Bedside table within reach, bed in lowest position, bed/chair wheels locked, and alarm is set. Care ongoing. [facility] Discharge instructions* Discharge Instructions* Jocelyn De Guzman APRN - CNP - 04/26/2025 3:56 PM EDT Stop smoking marijuana, this will help prevent further episodes of vomiting. Take your seizure medications as prescribed. Follow up with your pcp. * Attachments The following attachments cannot be sent through Care Everywhere. * Cannabinoid Hyperemesis Syndrome ([place]) [facility] History of Present illness Narrative* Bryant Hines PA-C - 03/15/2025 10:30 AM [facility]T [facility] 03/14/2025 11:55 AM Patient info: Yolanda Villanueva is a 24 y.o. female Account No.: [id number] Acct: : 2000 PCP: OTTONIEL ARIAS MD [...] rather than in psychosis . Previous Studies: 2/1/25-11/06/24: Video EEG - This EEG is abnormal due to the presence of generalized predominantly paracentral slow waves withtriphasic morphology and generalized background slowing consistent with bihemispheric cerebral dysfunction that may be seen in postictal states, hypoxic, toxic or metabolic abnormalities, sedative med ications use or primary neurological disorders. 11/04/24: CT [...] a suicide attempt. Also history of previous suicidalattempts. - has continued to have nocturnal convulsions. [...] the same time it seems she was havinglower facial twitching however only the lips seemed to be involved, almost pouting, with alternative twitching noticed of both angles of the mouth, with variable rhythmicity. There were no abnormal movements of the eyes appreciated, her eyes being semi open throughout the episode. The convulsions lasted out 1.5 minutes at the end of fish the twitches seemed to slow down and eventually stopped. Atthat time the patient appeared to be resting [...] however the patient reports she did bite hertongue a few times. Last nocturnal convulsion was a few days ago. - the patient is currently seeing a psychiatrist and counselor, however has not informed them that she is having seizures. She is currently seeing them for poorly controlled anxiety and mood disorders. 11/05/24 Patient initially presented to outside hospital for concerns of recurrent seizures at home. Historyis mainly obtained per chart review and family [...] another episode of seizure-like activity. Additionally, spouse statesthat he also thinks that the patient may [...] be tachycardic and tachypneic with initial labs remarkablefor elevated WBC count of 40, hyponatremia of 130, hypokalemia of 2.8, CK of 26,000, procalcitonin 40, rapid lactate of 2.9, and negative COVID and flu. A CT brain was obtained which she was negativefor any acute intracranial abnormalities. CT abdomen and pelvis showed possible colitis/enteritis. At outside hospital a bedside lumbar puncture was attempted however failed. Patient was started on empiric antibiotics for possible meningitis as well as colitis/enteritis. Patient was then transferred to [facility] for further management. Follow up 12/21/24 Discharged [...] Hines PA-C 03/15/25 1046 [facility] this [facility] History of Present illness Narrative* Bryant Hines PA-C - 12/21/2024 10:30 AM EDT [facility] Neurology Office Note 12/20/2024 9:58 AM Patient info: Yolanda Villanueva is a 24 y.o. female Account No.: [id number] Acct: : 2000 PCP: OTTONIEL ARIAS MD [...] presence of generalized predominantly paracentral slow waves withtriphasic morphology and generalized background slowing consistent with bihemispheric cerebral dysfunction that may be seen in postictal states, hypoxic, toxic or metabolic abnormalities, sedative med ications use or primary neurological disorders. 11/04/24: CT [...] a suicide attempt. Also history of previous suicidalattempts. - has continued to have nocturnal convulsions. [...] the same time it seems she was havinglower facial twitching however only the lips seemed to be involved, almost pouting, with alternative twitching noticed of both angles of the mouth, with variable rhythmicity. There were no abnormal movements of the eyes appreciated, her eyes being semi open throughout the episode. The convulsions lasted out 1.5 minutes at the end of fish the twitches seemed to slow down and eventually stopped. Atthat time the patient appeared to be resting [...] however the patient reports she did bite hertongue a few times. Last nocturnal convulsion was a few days ago. - the patient is currently seeing a psychiatrist and counselor, however has not informed them that she is having seizures. She is currently seeing them for poorly controlled anxiety and mood disorders. 11/05/24 Patient initially presented to outside hospital for concerns of recurrent seizures at home. Historyis mainly obtained per chart review and family [...] another episode of seizure-like activity. Additionally, spouse statesthat he also thinks that the patient may [...] be tachycardic and tachypneic with initial labs remarkablefor elevated WBC count of 40, hyponatremia of 130, hypokalemia of 2.8, CK of 26,000, procalcitonin 40, rapid lactate of 2.9, and negative COVID and flu. A CT brain was obtained which she was negativefor any acute intracranial abnormalities. CT abdomen and pelvis showed possible colitis/enteritis. At outside hospital a bedside lumbar puncture was attempted however failed. Patient was started on empiric antibiotics for possible meningitis as well as colitis/enteritis. Patient was then transferred to [facility] for further management. Past Medical Hx: See [...] Hines PA-C 12/25/24 1726 documented in this [facility]03-04-2025 Miscellaneous Notes* Telephone Encounter - Vsahti Price - 12/06/2024 2:[address] Bragg Reschedule: Patient's appointment with Dr. Bragg on December 20, 2024 needs to be rescheduled at this time due toprovider out of clinic. Contacted patient and offered to reschedule for next available with Dr. Bragg or Evaristo, per chick room supervisor's instruction. Patient is rescheduled to see Bryant Hines at our [place] location on 12/21/24 at 10:30a for 60 minutes documented in this [facility]03-04-2025 Telephone encounter Note* Telephone Encounter - Vashti Price - 12/06/2024 2:[address] Bragg Reschedule: Patient's appointment with Dr. Bragg on December 20, 2024 needs to be rescheduled at this time due toprovider out of clinic. Contacted patient and offered to reschedule for next available with Dr. Bragg or Evaristo, per chick room supervisor's instruction. Patient is rescheduled to see Bryant Hines at our [place] location on 12/21/24 at 10:30a for 60 minutes [facility]02[facility] Miscellaneous Notes* Telephone Encounter - Satnam Anderson CMA - 11/22/2024 11:32 AM EST Patient called make a new appt. Referral placed today. Call back [phone] * Telephone Encounter - Jordana Menezes - 11/22/2024 11:32 AM EST Pt is not new last seen inpt by PROMISE 11/12/24. PROMISE's discharge instructions stated that pt needs to repeat labs prior to f/u recommendations. Orders placed by Janay Mustafa and pt plans on getting the labs done by . Please advise if pt needs to f/u with us after getting the labs done. documented in this encounterAden[facility]02-18-[facility] Telephone encounter Note* Telephone Encounter - Satnam Anderson CMA - 11/22/2024 11:32 AM EST Patient called make a new appt. Referral placed today. Call back [phone] [facility] Telephone encounter Note* Telephone Encounter - Jordana Menezes - 11/22/2024 11:32 AM EST Pt is not new last seen inpt by PROMISE 11/12/24. PROMISE's discharge instructions stated that pt needs to repeat labs prior to f/u recommendations. Orders placed by Janay Mustafa and pt plans on getting the labs done by . Please advise if pt needs to f/u with us after getting the labs done. [facility]02-[facility] History of Present illness Narrative* Janay Mustafa, TEST OPERATOR-SEATING AND MOBILITY TECHNOLOGIST - 11/22/2024 11:00 AM EST Subjective Patient ID: Yolanda Villanueva is a 24 y.o. female. The patient is here today for discharge followup from hospital. Transition of Care Med Rec completed? Yes Discharged medications: Medications have been reviewed and reconciled with the most recent facilitydischarge document. HPI Yolanda presents with her spouse, after admission to [facility] on 11/05/2024-11/12/2024. She was admitted for seizures due to medication noncompliance. (Although, pt states was drinking, and this tends to happen if she drinks),acute rhabdomyolysis, influenza A, acute renal failure, and eczema. Radha states she is feeling much better than when was hospitalized, although is still very tired. sleeps frequently throughout the day, and still sleeps well at night.She has an appointment with neurology on 12/20/2024. She is also to see nephrology. States she was given the information in thehospital, but has been too tired to call for nephrology appointment. Additionally, sees psychiatry at [facility]. Yolanda states she feels dizzy when bends [...] past medical history, past social history, past surgicalhistory, problem list, and medication reconciliation was completed including current medication andpost discharge medication. Review of Systems Constitutional: Positive for fatigue. HENT: Negative. Negative for ear pain, postnasal drip, rhinorrhea, sinus pressure, sinus pain, sorethroat and trouble swallowing. Eyes: Negative. Respiratory: Positive [...] ear normal. Nose: Rhinorrhea present. Mouth/Throat: Lips: [place]. Mouth: Mucous membranes are moist. Pharynx: Oropharynx [...] all orders for this visit: Seizure disorder ([facility]) Focal epilepsy ([facility]) Acute kidney injury ([facility]) - Ambulatory referral to Nephrology (Non-[facility]); Future Eczema of right hand - clobetasoL (TEMOVATE) 0.05 % ointment; Apply 1 Application topically nightly. VIJAYA House 11/22/24 1249 documented in this encounterAdena [facility]02-11-2025 Miscellaneous Notes* Telephone Encounter - Nicole Cheng RN - 11/15/2024 9:41 AM EST Images from the original note were not included. Transition of Care Additional Questions/Concerns Requiring PCP Follow-Up: This documentation is being used for Transition of Care purposes: Yes Goal: Patient will demonstrate a safe transition from hospital to home. Diagnosis on Discharge: Breakthrough seizure likely secondary to medication nonadherence Discharge Specialty: Infectious Disease and Neurology Name of Discharging Facility: [facility] Date of Facility Discharge: 11.05.24-11.12.24 Date of Interactive Contact and Name of Residential Construction Instructor: 11.15.24 0941 Spoke with the patient. Medication [...] Other Services Utilized/Needed by the Patient: -None * Telephone Encounter - VIJAYA House - 11/15/2024 9:41 AM EST Order were placed for labs, to have done 11/19/2024 documented in this encounterAdena [facility]02-11-2025 Telephone encounter Note* Telephone Encounter - Nicole Cheng RN - 11/15/2024 9:41 AM EST Images from the original note were not included. Transition of Care Additional Questions/Concerns Requiring PCP Follow-Up: This documentation is being used for Transition of Care purposes: Yes Goal: Patient will demonstrate a safe transition from hospital to home. Diagnosis on Discharge: Breakthrough seizure likely secondary to medication nonadherence Discharge Specialty: Infectious Disease and Neurology Name of Discharging Facility: [facility] Date of Facility Discharge: 11.05.24-11.12.24 Date of Interactive Contact and Name of Residential Construction Instructor: 11.15.24 0941 Spoke with the patient. Medication [...] Other Services Utilized/Needed by the Patient: -None [facility]02-[facility] Telephone encounter Note* Telephone Encounter - VIJAYA House - 11/15/2024 9:41 AM EST Order were placed for labs, to have done 11/19/2024 [facility]02-[facility] Nurse Note* Yadira Vigil RN - 11/12/2024 2:43 PM EST AVS reviewed with patient and spouse. All questions addressed, provided vimpat script, belongings sent with patient. Patient declined staff assistance to vehicle. - Yadira Vigil RN 11/12/24 2:45 PM documented in this encounterAdena [facility]02-[facility]-2025 Hospital course Narrative* Oliverio Dennis MD - 11/12/2024 11:59 AM EST Inpatient Discharge Summary BRIEF OVERVIEW Admitting Provider: Marie Singh, DO Discharge Provider: Oliverio Dennis M.D Primary Care Physician at Discharge: OTTONIEL ARIAS MD [phone] Admission Date: 11/05/2024 Discharge Date: 11/12/2024 Primary [...] STAY Presenting Problem/History of Present Illness Seizure (CMS-HCC) [R56.9] Electrolyte abnormality [E87.8] Hospital Course Patient is a 24-year-old female with known Hx/o Seizure disorder, Depression/Anxiety, Eczema, Gastritis, former smoker initially admitted to ICU presented on 11/04/2024 with recurrent seizures, rash.Once stabilized was transferred to floor under [facility] as primary on 11/07/2024. 1. Breakthrough seizure [...] This note was completed using a voice cna pct system. Every effort was made to ensure accuracy. However, inadvertent computerized cna pct errors may be present. documented in this encounterGifford Medical CenterPowerUp Toys [id number] Miscellaneous Notes* Plan of Care - Yadira Vigil RN - 11/12/2024 10:54 AM EST Problem: Pain Goal: Patient goal is pain score less than 4, able to rest, and participant in treatment plan as appropriate Description: INTERVENTIONS: 1. Encourage patient or legal promotional representative to report early pain and ask [...] per policy 9. Teach patient or legal promotional representative interventions for comforting Outcome: Progressing Note: [...] at the bedside 7. Instruct patient/ patient promotional representative about use of safety devices 8. Include patient/ patient promotional representative in decisions related to safety Outcome: Progressing Note: Evaluation of progress towards goal: Bed locked in lowest position, call light within reach, belongings at bedside, hourly rounding maintained, patient independent Problem: Knowledge Deficit Goal: Patient/patient promotional representative demonstrates understanding of disease process, treatment plan,medications, and discharge instructions Description: INTERVENTIONS 1. Complete [...] Score of =/> 25 or indicated by [facility] Re[facility] Assessment Goal: Patient should be free from fall Description: Interventions: 1. [place] to environment 2. Hourly rounds addressing the [...] non-skid footwear 11. Teach patient and patient promotional representative to maintain environment for safety and [...] (cane, walker) within reach 19. Request patient promotional representative bring adaptive equipment/mobility aids from home or obtain and provide as needed 20. Consult pharmacy regarding effects of med's affecting mobility, cognition, and alternatives 21. Obtain physician order for PT if risk factors associated with mobility are present 22. Obtain physician order for OT as appropriate 23. Utilize diversional activities 24. Educate patient and patient promotional representative how to maintain a safe environment during visitationtimes (notify nurse prior to leaving bedside) 25. Consider appropriateness of medical or non-medical biller/coder 26. Set up voiding schedule as appropriate (every 2 hours) Outcome: Progressing Note: Evaluation of progress towards goal: Patient remains free from falls at this time, hourly rounding maintained Problem: Neurosensory - Adult Goal: Absence of seizures Description: INTERVENTIONS 1. [place] and maintain seizure precautions 2. Monitor for seizure activity 3. Administer anti-seizure medications as ordered 4. Monitor neurological status Outcome: Progressing Note: Evaluation of progress towards goal: [place] and maintain seizure precautions. Monitor for seizure activity. Administer anti-seizure medications as ordered. Monitor neurological status * Plan of Care - Sam Jane RN - 11/12/2024 12:12 AM EST Problem: Pain Goal: Patient goal is pain score less than 4, able to rest, and participant in treatment plan as appropriate Description: INTERVENTIONS: 1. Encourage patient or legal promotional representative to report early pain and ask [...] per policy 9. Teach patient or legal promotional representative interventions for comforting Outcome: Progressing Note: Evaluation of progress towards goal: Patient encouraged to report pain occurrence. Pain to beassessed using 0-10 scale. Pain control with scheduled [...] at the bedside 7. Instruct patient/ patient promotional representative about use of safety devices 8. Include patient/ patient promotional representative in decisions related to safety Outcome: Progressing Note: Evaluation of progress towards goal: patient remains free from injury at this time. Safety precautions in place. Problem: Knowledge Deficit Goal: Patient/patient promotional representative demonstrates understanding of disease process, treatment plan,medications, and discharge instructions Description: INTERVENTIONS 1. Complete learning assessment and assess knowledge base 2. Provide teaching at level of understanding 3. Provide teaching via preferred learning method(s) Outcome: Progressing Note: Evaluation of progress towards goal: [employer] Bi Developer educated pt on admission disease, medications, treatment, [...] be free from fall Description: Interventions: 1. [place] to environment 2. Hourly rounds addressing the [...] non-skid footwear 11. Teach patient and patient promotional representative to maintain environment for safety and [...] (cane, walker) within reach 19. Request patient promotional representative bring adaptive equipment/mobility aids from home or obtain and provide as needed 20. Consult pharmacy regarding effects of med's affecting mobility, cognition, and alternatives 21. Obtain physician order for PT if risk factors associated with mobility are present 22. Obtain physician order for OT as appropriate 23. Utilize diversional activities 24. Educate patient and patient promotional representative how to maintain a safe environment during visitationtimes (notify nurse prior to leaving bedside) 25. Consider appropriateness of medical or non-medical biller/coder 26. Set up voiding schedule as appropriate (every 2 hours) Outcome: Progressing Note: Evaluation of progress towards goal: [employer] Bi Developer assessed pt fall precautions in the beginning andthroughout shift. Pt room left free of clutter, [...] Goal: Absence of seizures Description: INTERVENTIONS 1. [place] and maintain seizure precautions 2. Monitor for [...] and report duration and description of seizure toLIP 3. If seizure occurs, turn patient to side and suction secretions as needed 4. Reorient patient post seizure 5. [place] and maintain seizure precautions 6. Instruct patient/legal promotional representative to notify RN of any seizure activity 7. Instruct patient/legal promotional representative to call for assistance with activity based on assessment Outcome: Progressing Note: Evaluation of progress towards goal: patient remains free from seizures, seizure precautions in place * Plan of Care - Samantha Oliver RN - 11/11/2024 10:48 AM EST Problem: Pain Goal: Patient goal is pain score less than 4, able to rest, and participant in treatment plan as appropriate Description: INTERVENTIONS: 1. Encourage patient or legal promotional representative to report early pain and ask [...] per policy 9. Teach patient or legal promotional representative interventions for comforting Outcome: Progressing Note: Evaluation of progress towards goal: Pain assessed q4 hours and as needed. PRN pain meds usedto manage pain Problem: Safety Goal: Patient will be injury free during hospitalization Description: INTERVENTIONS: 1. Assess patient's risk for falls and implement fall prevention plan of care per policy 2. Provide and maintain a safe environment 3. Proper use of double Identifiers 4. Medication administration using the 5 rights 5. Hand hygiene 6. Specimens are labeled at the bedside 7. Instruct patient/ patient promotional representative about use of safety devices 8. Include patient/ patient promotional representative in decisions related to safety Outcome: Progressing Note: Evaluation of progress towards goal: Pt remains free of falls/ injury Problem: Knowledge Deficit Goal: Patient/patient promotional representative demonstrates understanding of disease process, treatment plan,medications, and discharge instructions Description: INTERVENTIONS 1. Complete learning assessment and assess knowledge base 2. Provide teaching at level of understanding 3. Provide teaching via preferred learning method(s) Outcome: Progressing Note: Evaluation of progress towards goal: Patient involved and informed about disease process, medications, and treatment plan. [employer] Bi Developer to update patient throughout the shift regarding [...] Score of =/> 25 or indicated by [facility] Assessment Goal: Patient should be free from fall Description: Interventions: 1. [place] to environment 2. Hourly rounds addressing the [...] non-skid footwear 11. Teach patient and patient promotional representative to maintain environment for safety and [...] (cane, walker) within reach 19. Request patient promotional representative bring adaptive equipment/mobility aids from home or obtain and provide as needed 20. Consult pharmacy regarding effects of med's affecting mobility, cognition, and alternatives 21. Obtain physician order for PT if risk factors associated with mobility are present 22. Obtain physician order for OT as appropriate 23. Utilize diversional activities 24. Educate patient and patient promotional representative how to maintain a safe environment during visitationtimes (notify nurse prior to leaving bedside) 25. Consider appropriateness of medical or non-medical biller/coder 26. Set up voiding schedule as appropriate [...] Goal: Absence of seizures Description: INTERVENTIONS 1. [place] and maintain seizure precautions 2. Monitor for [...] and report duration and description of seizure toLIP 3. If seizure occurs, turn patient to side and suction secretions as needed 4. Reorient patient post seizure 5. [place] and maintain seizure precautions 6. Instruct patient/legal promotional representative to notify RN of any seizure activity 7. Instruct patient/legal promotional representative to call for assistance with activity based on assessment Outcome: Progressing Note: Evaluation of progress towards goal: Pt remains free of seizures. Seizure precautions in place * Discharge Planning Note - KHUSHBOO Abreu - 11/11/2024 9:26 AM EST DISCHARGE PLANNING NOTE Case discussed in daily transition rounds and chart reviewed by CN. Barriers to discharge include adjust medications, LR, chest xray, COVID swab, monitor CK & myoglobin, monitor BUN/Cr Discharge Plan remains: home with self care/family assist as needed. will transport patienthome at discharge. CN will continue to follow and is available should any further needs arise. - KHUSHBOO ABREU 11/11/24 9:26 AM * Plan of Care - Sam Jane RN - 11/11/2024 3:02 AM EST Problem: Pain Goal: Patient goal is pain score less than 4, able to rest, and participant in treatment plan as appropriate Description: INTERVENTIONS: 1. Encourage patient or legal promotional representative to report early pain and ask [...] per policy 9. Teach patient or legal promotional representative interventions for comforting Outcome: Progressing Note: Evaluation of progress towards goal: Patient encouraged to report pain occurrence. Pain to beassessed using 0-10 scale. Pain control with scheduled [...] at the bedside 7. Instruct patient/ patient promotional representative about use of safety devices 8. Include patient/ patient promotional representative in decisions related to safety Outcome: Progressing Note: Evaluation of progress towards goal: patient remains free from injury at this time. Safety precautions in place. Problem: Knowledge Deficit Goal: Patient/patient promotional representative demonstrates understanding of disease process, treatment plan,medications, and discharge instructions Description: INTERVENTIONS 1. Complete learning assessment and assess knowledge base 2. Provide teaching at level of understanding 3. Provide teaching via preferred learning method(s) Outcome: Progressing Note: Evaluation of progress towards goal: [employer] Bi Developer assessed pt risk for infection in the [...] Progressing Note: Evaluation of progress towards goal: [employer] Bi Developer educated pt on admission disease, medications, treatment, and discharge planning. Will continue to monitor. Problem: Moderate - High Risk Fall Score Description: Mack Fall Score of =/> 25 or indicated by [facility] Assessment Goal: Patient should be free from fall Description: Interventions: 1. [place] to environment 2. Hourly rounds addressing the [...] non-skid footwear 11. Teach patient and patient promotional representative to maintain environment for safety and [...] (cane, walker) within reach 19. Request patient promotional representative bring adaptive equipment/mobility aids from home or obtain and provide as needed 20. Consult pharmacy regarding effects of med's affecting mobility, cognition, and alternatives 21. Obtain physician order for PT if risk factors associated with mobility are present 22. Obtain physician order for OT as appropriate 23. Utilize diversional activities 24. Educate patient and patient promotional representative how to maintain a safe environment during visitationtimes (notify nurse prior to leaving bedside) 25. Consider appropriateness of medical or non-medical biller/coder 26. Set up voiding schedule as appropriate (every 2 hours) Outcome: Progressing Note: Evaluation of progress towards goal: [employer] Bi Developer assessed pt fall precautions in the beginning andthroughout shift. Pt room left free of clutter, [...] Goal: Absence of seizures Description: INTERVENTIONS 1. [place] and maintain seizure precautions 2. Monitor for [...] and report duration and description of seizure toLIP 3. If seizure occurs, turn patient to side and suction secretions as needed 4. Reorient patient post seizure 5. [place] and maintain seizure precautions 6. Instruct patient/legal promotional representative to notify RN of any seizure activity 7. Instruct patient/legal promotional representative to call for assistance with activity based on assessment Outcome: Progressing Note: Evaluation of progress towards goal: patient remains free from seizures * Plan of Care - Anahi Astudillo RN - 11/10/2024 1:34 PM EST Problem: Pain Goal: Patient goal is pain score less than 4, able to rest, and participant in treatment plan as appropriate Description: INTERVENTIONS: 1. Encourage patient or legal promotional representative to report early pain and ask [...] per policy 9. Teach patient or legal promotional representative interventions for comforting Outcome: Progressing Note: [...] at the bedside 7. Instruct patient/ patient promotional representative about use of safety devices 8. Include patient/ patient promotional representative in decisions related to safety Outcome: [...] hygiene technique. 7. Identify and instruct patient/patient promotional representative in use of appropriate isolation precautionsfor identified infection/symptoms. 8. Provide and discuss with patient/patient promotional representative on educational MDRO sheet. 9. Encourage and monitor nutritional status daily and consult transonic engineer if indicated. 10. Implement neutropenic guidelines as needed. Outcome: Completed Note: Evaluation of progress towards goal: patient free of signs of infection Problem: Knowledge Deficit Goal: Patient/patient promotional representative demonstrates understanding of disease process, treatment plan,medications, and discharge instructions Description: INTERVENTIONS 1. Complete [...] Patient kept updated on discharge process, will continueto keep updated as new information arises Problem: Moderate - High Risk Fall Score Description: Mack Fall Score of =/> 25 or indicated by [facility] Assessment Goal: Patient should be free from fall Description: Interventions: 1. [place] to environment 2. Hourly rounds addressing the [...] non-skid footwear 11. Teach patient and patient promotional representative to maintain environment for safety and [...] (cane, walker) within reach 19. Request patient promotional representative bring adaptive equipment/mobility aids from home or obtain and provide as needed 20. Consult pharmacy regarding effects of med's affecting mobility, cognition, and alternatives 21. Obtain physician order for PT if risk factors associated with mobility are present 22. Obtain physician order for OT as appropriate 23. Utilize diversional activities 24. Educate patient and patient promotional representative how to maintain a safe environment during visitationtimes (notify nurse prior to leaving bedside) 25. Consider appropriateness of medical or non-medical biller/coder 26. Set up voiding schedule as appropriate [...] on patient's door 9. Provide patient/ patient promotional representative with isolation education. Outcome: Completed Note: [...] Goal: Absence of seizures Description: INTERVENTIONS 1. [place] and maintain seizure precautions 2. Monitor for [...] and report duration and description of seizure toLIP 3. If seizure occurs, turn patient to side and suction secretions as needed 4. Reorient patient post seizure 5. [place] and maintain seizure precautions 6. Instruct patient/legal promotional representative to notify RN of any seizure activity 7. Instruct patient/legal promotional representative to call for assistance with activity based on assessment Outcome: Progressing Note: Evaluation of progress towards goal: patient free from seizures Problem: Neurosensory - Adult Goal: Absence of seizures Description: INTERVENTIONS 1. [place] and maintain seizure precautions 2. Monitor for [...] and report duration and description of seizure toLIP 3. If seizure occurs, turn patient to side and suction secretions as needed 4. Reorient patient post seizure 5. [place] and maintain seizure precautions 6. Instruct patient/legal promotional representative to notify RN of any seizure activity 7. Instruct patient/legal promotional representative to call for assistance with activity based on assessment Outcome: Progressing Note: Evaluation of progress towards goal: patient free from seizures * Discharge Planning Note - KHUSHBOO Abreu - 11/10/2024 9:38 AM EST DISCHARGE PLANNING NOTE Case discussed in daily transition rounds and chart reviewed by CN. Barriers to discharge include LR, monitor BUN/Cr Discharge Plan remains: home with self care/ assist as needed. CN will continue to follow and is available should any further needs arise. - KHUSHBOO ABREU 11/10/24 9:38 AM * Plan of Care - Lesia Fontanez RN - 11/10/2024 1:56 AM EST Problem: Pain Goal: Patient goal is pain score less than 4, able to rest, and participant in treatment plan as appropriate Description: INTERVENTIONS: 1. Encourage patient or legal promotional representative to report early pain and ask [...] per policy 9. Teach patient or legal promotional representative interventions for comforting Outcome: Progressing Note: [...] at the bedside 7. Instruct patient/ patient promotional representative about use of safety devices 8. Include patient/ patient promotional representative in decisions related to safety Outcome: [...] hygiene technique. 7. Identify and instruct patient/patient promotional representative in use of appropriate isolation precautionsfor identified infection/symptoms. 8. Provide and discuss with patient/patient promotional representative on educational MDRO sheet. 9. Encourage and monitor nutritional status daily and consult transonic engineer if indicated. 10. Implement neutropenic guidelines as needed. Outcome: Progressing Note: Evaluation of progress towards goal: No S/S of infection at this time Problem: Knowledge Deficit Goal: Patient/patient promotional representative demonstrates understanding of disease process, treatment plan,medications, and discharge instructions Description: INTERVENTIONS 1. Complete [...] on patient's door 9. Provide patient/ patient promotional representative with isolation education. Outcome: Progressing Note: Evaluation of progress towards goal: Hand hygiene being performed before and after patient care Problem: Moderate - High Risk Fall Score Description: Mack Fall Score of =/> 25 or indicated by [facility] Assessment Goal: Patient should be free from fall Description: Interventions: 1. [place] to environment 2. Hourly rounds addressing the [...] non-skid footwear 11. Teach patient and patient promotional representative to maintain environment for safety and [...] (cane, walker) within reach 19. Request patient promotional representative bring adaptive equipment/mobility aids from home or obtain and provide as needed 20. Consult pharmacy regarding effects of med's affecting mobility, cognition, and alternatives 21. Obtain physician order for PT if risk factors associated with mobility are present 22. Obtain physician order for OT as appropriate 23. Utilize diversional activities 24. Educate patient and patient promotional representative how to maintain a safe environment during visitationtimes (notify nurse prior to leaving bedside) 25. Consider appropriateness of medical or non-medical biller/coder 26. Set up voiding schedule as appropriate [...] Goal: Absence of seizures Description: INTERVENTIONS 1. [place] and maintain seizure precautions 2. Monitor for [...] and report duration and description of seizure toLIP 3. If seizure occurs, turn patient to side and suction secretions as needed 4. Reorient patient post seizure 5. [place] and maintain seizure precautions 6. Instruct patient/legal promotional representative to notify RN of any seizure activity 7. Instruct patient/legal promotional representative to call for assistance with activity [...] Note: Evaluation of progress towards goal: Completed * Plan of Care - Anna Blevins RN - 11/09/2024 3:21 PM EST Problem: Pain Goal: Patient goal is pain score less than 4, able to rest, and participant in treatment plan as appropriate Description: INTERVENTIONS: 1. Encourage patient or legal promotional representative to report early pain and ask [...] per policy 9. Teach patient or legal promotional representative interventions for comforting Outcome: Progressing Note: [...] at the bedside 7. Instruct patient/ patient promotional representative about use of safety devices 8. Include patient/ patient promotional representative in decisions related to safety Outcome: [...] hygiene technique. 7. Identify and instruct patient/patient promotional representative in use of appropriate isolation precautionsfor identified infection/symptoms. 8. Provide and discuss with patient/patient promotional representative on educational MDRO sheet. 9. Encourage and monitor nutritional status daily and consult transonic engineer if indicated. 10. Implement neutropenic guidelines as needed. Outcome: Progressing Note: Evaluation of progress towards goal: Patient is afebrile at this time with no signs or symptoms of infection. Will continue to monitor for infection and keep a clean environment for patient. Problem: Knowledge Deficit Goal: Patient/patient promotional representative demonstrates understanding of disease process, treatment plan,medications, and discharge instructions Description: INTERVENTIONS 1. Complete [...] Score of =/> 25 or indicated by [facility] Assessment Goal: Patient should be free from fall Description: Interventions: 1. [place] to environment 2. Hourly rounds addressing the [...] non-skid footwear 11. Teach patient and patient promotional representative to maintain environment for safety and [...] (cane, walker) within reach 19. Request patient promotional representative bring adaptive equipment/mobility aids from home or obtain and provide as needed 20. Consult pharmacy regarding effects of med's affecting mobility, cognition, and alternatives 21. Obtain physician order for PT if risk factors associated with mobility are present 22. Obtain physician order for OT as appropriate 23. Utilize diversional activities 24. Educate patient and patient promotional representative how to maintain a safe environment during visitationtimes (notify nurse prior to leaving bedside) 25. Consider appropriateness of medical or non-medical biller/coder 26. Set up voiding schedule as appropriate (every 2 hours) Outcome: Progressing Note: Evaluation of progress towards goal: No falls or injuries during this shift. Bed is locked, in low position, and bedside rails are up x3. Will continue to monitor patient frequently and maintain a safe environment. * Psychiatric Progress Note - Noah Vasquez MD - 11/09/2024 10:47 AM EST Chart reviewed patient and interviewed Patient denies [...] discharge. Recommend that she resume outpatient treatment. * Plan of Care - Genaro Mortensen RN - 11/09/2024 12:42 AM EST Problem: Pain Goal: Patient goal is pain score less than 4, able to rest, and participant in treatment plan as appropriate Description: INTERVENTIONS: 1. Encourage patient or legal promotional representative to report early pain and ask [...] per policy 9. Teach patient or legal promotional representative interventions for comforting Outcome: Progressing Note: [...] at the bedside 7. Instruct patient/ patient promotional representative about use of safety devices 8. Include patient/ patient promotional representative in decisions related to safety Outcome: [...] hygiene technique. 7. Identify and instruct patient/patient promotional representative in use of appropriate isolation precautionsfor identified infection/symptoms. 8. Provide and discuss with patient/patient promotional representative on educational MDRO sheet. 9. Encourage and monitor nutritional status daily and consult transonic engineer if indicated. 10. Implement neutropenic guidelines as needed. Outcome: Progressing Note: Evaluation of progress towards goal: Patient displays no signs of infection. Able to demonstrate appropriate hand hygiene.Will continue to monitor patient, labs, and mews score. Problem: Knowledge Deficit Goal: Patient/patient promotional representative demonstrates understanding of disease process, treatment plan,medications, and discharge instructions Description: INTERVENTIONS 1. Complete [...] Score of =/> 25 or indicated by [facility] Assessment Goal: Patient should be free from fall Description: Interventions: 1. [place] to environment 2. Hourly rounds addressing the [...] non-skid footwear 11. Teach patient and patient promotional representative to maintain environment for safety and [...] (cane, walker) within reach 19. Request patient promotional representative bring adaptive equipment/mobility aids from home or obtain and provide as needed 20. Consult pharmacy regarding effects of med's affecting mobility, cognition, and alternatives 21. Obtain physician order for PT if risk factors associated with mobility are present 22. Obtain physician order for OT as appropriate 23. Utilize diversional activities 24. Educate patient and patient promotional representative how to maintain a safe environment during visitationtimes (notify nurse prior to leaving bedside) 25. Consider appropriateness of medical or non-medical biller/coder 26. Set up voiding schedule as appropriate (every 2 hours) Outcome: Progressing Note: Evaluation of progress towards goal: Patient fall risk safety measures have been implemented.Continuing to monitor patient. Problem: Neurosensory - Adult Goal: Absence of seizures Description: INTERVENTIONS 1. [place] and maintain seizure precautions 2. Monitor for seizure activity 3. Administer anti-seizure medications as ordered 4. Monitor neurological status Outcome: Progressing Note: Evaluation of progress towards goal: Patient is receiving antiseizure medications. * Psychiatric Consult - Noah Vasquez MD - 11/08/2024 5:41 PM EST Chart reviewed patient and interviewed discussed at length with nurse. Patient admitted with sepsis and question of serotonin syndrome. She gives history of past psychiatric treatment. She states that she had been hospitalized at [facility] in [place] last summer. She has continued with outpatient treatment at [facility] in [place]. She has been seeing a psychiatric nurse practitioner and has also seen a therapist on an irregular basis. Shehas been on multiple psychotropic medications including Paxil, Effexor, olanzapine, Lamictal and Abilify. She states that she had been diagnosed with bipolar disorder at [facility]. She states family history is positive for psychiatric illness. Patient lives with her . She is a high-school graduate. She is currently unemployed. 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 Her is supportive of her. She denieshistory of abuse. She denies substance use On [...] that she involve with outpatient psychiatric treatment. * Discharge Planning Note - KHUSHBOO Abreu - 11/08/2024 2:49 PM EST Images from the original note were not included. DISCHARGE PLANNING NOTE Microsoft Bi Developer met with patient and , introduced self, and explained role. Patient is alert and oriented, sitting in bed, eating lunch, cooperative. Supportive at bedside. Patient and educated on safe discharge plan. Pt admitted 11/05/2024 with Seizure ([facility]) [R56.9] per chart review. Consults: Infectious Disease, Nephrology, Neurology, Psychiatry, and Rheumatology Discharge Barriers per Daily Transition Rounds and chart review: LR, medication adjustment, IV Mag,IV K Past Medical History: Diagnosis Date Anxiety March 2013 Depression March 2013 Eczema 2009 GERD (gastroesophageal reflux disease) Seizures ([facility]) Visual impairment 2004 Prior to admission patient was living with spouse/significant other and self care. Medical equipment patient used prior to admission includes: None. Patient was active and independent prior to admission. Patient denies need for transportation/ food/ prescription medication assistance resources. Patient is planning to transition home with self care/family assist as needed. PCP: OTTONIEL ARIAS MD Pharmacy: [facility] PCP and pharmacy confirmed with patient. CN [...] questions. - KHUSHBOO ABREU 11/08/24 2:49 PM * Psychiatric Progress Note - KHUSHBOO Rowe - 11/08/2024 2:33 PM EST Greeted patient, introduced self and explained role as forensic psychologist/liaison. Began an interview in order to complete a psychosocial assessment. Patient is a 24 year old female here for a workup after having a seizure. Psych consulted to reviewmedications as there is a concern for serotonin syndrome. When asked patient stated she is neither suicidal nor homicidal. Per patient she is treated for depression at [facility] in [place] where she is prescribed her psych medications. Patient has been going there for years and feels her moods have beenwell managed. However she will of course consider any changes in medications if appropriate. When asked patient stated she has a follow up appointment already scheduled with her mental health provider next week and declined help from JOSE to assist in coordinating an appointment. Will otherwise standby ready to assist in setting up any additional mental health services should those be recommended.- KHUSHBOO Rowe 11/08/24 2:40 PM * Plan of Care - Samantha Cortes RN - 11/07/2024 10:53 PM EST Problem: Pain Goal: Patient goal is pain score less than 4, able to rest, and participant in treatment plan as appropriate Description: INTERVENTIONS: 1. Encourage patient or legal promotional representative to report early pain and ask [...] per policy 9. Teach patient or legal promotional representative interventions for comforting Outcome: Progressing Note: [...] at the bedside 7. Instruct patient/ patient promotional representative about use of safety devices 8. Include patient/ patient promotional representative in decisions related to safety Outcome: [...] hygiene technique. 7. Identify and instruct patient/patient promotional representative in use of appropriate isolation precautionsfor identified infection/symptoms. 8. Provide and discuss with patient/patient promotional representative on educational MDRO sheet. 9. Encourage and monitor nutritional status daily and consult transonic engineer if indicated. 10. Implement neutropenic guidelines as needed. Outcome: Progressing Note: Evaluation of progress towards goal: Patient afebrile. Monitoring lab values. Problem: Knowledge Deficit Goal: Patient/patient promotional representative demonstrates understanding of disease process, treatment plan,medications, and discharge instructions Description: INTERVENTIONS 1. Complete [...] on patient's door 9. Provide patient/ patient promotional representative with isolation education. Outcome: Progressing Note: Evaluation of progress towards goal: Patient remains afebrile. Monitoring labs. Problem: Moderate - High Risk Fall Score Description: Mack Fall Score of =/> 25 or indicated by [facility] Assessment Goal: Patient should be free from fall Description: Interventions: 1. [place] to environment 2. Hourly rounds addressing the [...] non-skid footwear 11. Teach patient and patient promotional representative to maintain environment for safety and [...] (cane, walker) within reach 19. Request patient promotional representative bring adaptive equipment/mobility aids from home or obtain and provide as needed 20. Consult pharmacy regarding effects of med's affecting mobility, cognition, and alternatives 21. Obtain physician order for PT if risk factors associated with mobility are present 22. Obtain physician order for OT as appropriate 23. Utilize diversional activities 24. Educate patient and patient promotional representative how to maintain a safe environment during visitationtimes (notify nurse prior to leaving bedside) 25. Consider appropriateness of medical or non-medical biller/coder 26. Set up voiding schedule as appropriate [...] Goal: Absence of seizures Description: INTERVENTIONS 1. [place] and maintain seizure precautions 2. Monitor for [...] and report duration and description of seizure toLIP 3. If seizure occurs, turn patient to side and suction secretions as needed 4. Reorient patient post seizure 5. [place] and maintain seizure precautions 6. Instruct patient/legal promotional representative to notify RN of any seizure activity 7. Instruct patient/legal promotional representative to call for assistance with activity [...] goal: Patient remains independent in all ADLs. * Plan of Care - Jordana Yang RN - 11/07/2024 12:51 AM EST Problem: Pain Goal: Patient goal is pain score less than 4, able to rest, and participant in treatment plan as appropriate Description: INTERVENTIONS: 1. Encourage patient or legal promotional representative to report early pain and ask [...] per policy 9. Teach patient or legal promotional representative interventions for comforting Outcome: Progressing Note: Evaluation of progress towards goal: Encourage patient or legal promotional representative to report early pain and ask [...] at the bedside 7. Instruct patient/ patient promotional representative about use of safety devices 8. Include patient/ patient promotional representative in decisions related to safety Outcome: Progressing Note: Evaluation of progress towards goal: Patient has remained injury free. Bed in lowest positionand usable items within reach. Safety measures maintained. [...] hygiene technique. 7. Identify and instruct patient/patient promotional representative in use of appropriate isolation precautionsfor identified infection/symptoms. 8. Provide and discuss with patient/patient promotional representative on educational MDRO sheet. 9. Encourage and monitor nutritional status daily and consult transonic engineer if indicated. 10. Implement neutropenic guidelines as needed. Outcome: Progressing Note: Evaluation of progress towards goal: Patient temperature measurement Q4, antibiotics given when indicated, hygiene maintained. Problem: Knowledge Deficit Goal: Patient/patient promotional representative demonstrates understanding of disease process, treatment plan,medications, and discharge instructions Description: INTERVENTIONS 1. Complete [...] 2 hours and PRN . Relieve pressure tobony prominences . Avoid shearing . Keep skin clean and dry Problem: Moderate - High Risk Fall Score Description: Mack Fall Score of =/> 25 or indicated by [facility] Assessment Goal: Patient should be free from fall Description: Interventions: 1. [place] to environment 2. Hourly rounds addressing the [...] non-skid footwear 11. Teach patient and patient promotional representative to maintain environment for safety and [...] (cane, walker) within reach 19. Request patient promotional representative bring adaptive equipment/mobility aids from home or obtain and provide as needed 20. Consult pharmacy regarding effects of med's affecting mobility, cognition, and alternatives 21. Obtain physician order for PT if risk factors associated with mobility are present 22. Obtain physician order for OT as appropriate 23. Utilize diversional activities 24. Educate patient and patient promotional representative how to maintain a safe environment during visitationtimes (notify nurse prior to leaving bedside) 25. Consider appropriateness of medical or non-medical biller/coder 26. Set up voiding schedule as appropriate (every 2 hours) Outcome: Progressing Note: Evaluation of progress towards goal: . Encourage patient to wear glasses and hearing aides asappropriate . Maintain bed in lowest position . Lock wheels on bed/wheelchair * Plan of Care - Barb Herrera MD - 11/06/2024 1:11 PM EST [facility] Transfer Accept Note I have received a request for transfer of primary service for this patient from the ICU team care of Dr. Singh. Clinical handoff report was given. [facility] will assume care as primary team of this patient upon transfer out of the ICU. BARB HERRERA MD 11/06/2024 * Plan of Care - Vita Sheehan RN - 11/06/2024 10:00 AM EST Patient alert and oriented, but impulsive and forgetful. Bed alarm on. Denies pain. Continuous EEG remains in place. Rheumatology and Nephrology consulted today. and mother at bedside. Afebrile. ID following, continue Rocephin, Flagyl, and Decadron. Verbalizes understanding, but forgetful. Needs reinforcement. * Plan of Care - Jordana Yang RN - 11/06/2024 1:21 AM EST Problem: Pain Goal: Patient goal is pain score less than 4, able to rest, and participant in treatment plan as appropriate Description: INTERVENTIONS: 1. Encourage patient or legal promotional representative to report early pain and ask [...] per policy 9. Teach patient or legal promotional representative interventions for comforting Outcome: Progressing Note: Evaluation of progress towards goal: Assess pain using appropriate pain scale and include thescale used when documenting. Administer analgesics based on [...] at the bedside 7. Instruct patient/ patient promotional representative about use of safety devices 8. Include patient/ patient promotional representative in decisions related to safety Outcome: [...] hygiene technique. 7. Identify and instruct patient/patient promotional representative in use of appropriate isolation precautionsfor identified infection/symptoms. 8. Provide and discuss with patient/patient promotional representative on educational MDRO sheet. 9. Encourage and monitor nutritional status daily and consult transonic engineer if indicated. 10. Implement neutropenic guidelines as needed. Outcome: Progressing Note: Evaluation of progress towards goal: Patient temperature measurement Q4, antibiotics given when indicated, hygiene maintained. Problem: Knowledge Deficit Goal: Patient/patient promotional representative demonstrates understanding of disease process, treatment plan,medications, and discharge instructions Description: INTERVENTIONS 1. Complete [...] be free from fall Description: Interventions: 1. [place] to environment 2. Hourly rounds addressing the [...] non-skid footwear 11. Teach patient and patient promotional representative to maintain environment for safety and [...] (cane, walker) within reach 19. Request patient promotional representative bring adaptive equipment/mobility aids from home or obtain and provide as needed 20. Consult pharmacy regarding effects of med's affecting mobility, cognition, and alternatives 21. Obtain physician order for PT if risk factors associated with mobility are present 22. Obtain physician order for OT as appropriate 23. Utilize diversional activities 24. Educate patient and patient promotional representative how to maintain a safe environment during visitationtimes (notify nurse prior to leaving bedside) 25. Consider appropriateness of medical or non-medical biller/coder 26. Set up voiding schedule as appropriate (every 2 hours) Outcome: Progressing Note: Evaluation of progress towards goal: Hourly rounds addressing the 4 P's (Pain, Positioning, Possessions, Potty) . Clear area of hazards (spills, clutter, electrical cords, unnecessary equipment) . Place equipment (bed & TV controls, call light, phone, urinal) within reach * Plan of Care - Brigida Rae MD - 11/05/2024 5:56 PM EST Neurology consult service plan of care note: [...] follow Brigida Rae MD PGY-4, Neurology Resident [facility] * Plan of Care - Nicole Guerrero RN - 11/05/2024 3:53 PM EST Problem: Pain Goal: Patient goal is pain score less than 4, able to rest, and participant in treatment plan as appropriate Description: INTERVENTIONS: 1. Encourage patient or legal promotional representative to report early pain and ask [...] per policy 9. Teach patient or legal promotional representative interventions for comforting Outcome: Progressing Note: [...] at the bedside 7. Instruct patient/ patient promotional representative about use of safety devices 8. Include patient/ patient promotional representative in decisions related to safety Outcome: [...] hygiene technique. 7. Identify and instruct patient/patient promotional representative in use of appropriate isolation precautionsfor identified infection/symptoms. 8. Provide and discuss with patient/patient promotional representative on educational MDRO sheet. 9. Encourage and monitor nutritional status daily and consult transonic engineer if indicated. 10. Implement neutropenic guidelines as needed. Outcome: Progressing Note: Evaluation of progress towards goal: Pt receiving antibiotics as ordered. Problem: Knowledge Deficit Goal: Patient/patient promotional representative demonstrates understanding of disease process, treatment plan,medications, and discharge instructions Description: INTERVENTIONS 1. Complete [...] supplement as ordered 13. Collaborate with clinical transonic engineer 14. Include patient/ patient's promotional representative in decisions related to nutrition Outcome: [...] Score of =/> 25 or indicated by [facility] Assessment Goal: Patient should be free from fall Description: Interventions: 1. [place] to environment 2. Hourly rounds addressing the [...] non-skid footwear 11. Teach patient and patient promotional representative to maintain environment for safety and [...] (cane, walker) within reach 19. Request patient promotional representative bring adaptive equipment/mobility aids from home or obtain and provide as needed 20. Consult pharmacy regarding effects of med's affecting mobility, cognition, and alternatives 21. Obtain physician order for PT if risk factors associated with mobility are present 22. Obtain physician order for OT as appropriate 23. Utilize diversional activities 24. Educate patient and patient promotional representative how to maintain a safe environment during visitationtimes (notify nurse prior to leaving bedside) 25. Consider appropriateness of medical or non-medical biller/coder 26. Set up voiding schedule as appropriate (every 2 hours) Outcome: Progressing Note: Evaluation of progress towards goal: Fall precautions in place. Bed in low locked position. Call light in reach. Problem: Safety - Medical Restraint Goal: Remains free of injury from restraints (Restraint for Interference with Cast Iron Dipper) Description: INTERVENTIONS: 1. Determine that other, less restrictive measures have been tried or would not be effective beforeapplying the restraint 2. Evaluate the patient's condition [...] Free from restraint(s) (Restraint for Interference with Cast Iron Dipper) Description: INTERVENTIONS: 1. ONCE/SHIFT or MINIMUM Q12H: [...] Evaluation of progress towards goal: order discontinued * Plan of Care - Ponce Elaine RN - 11/05/2024 6:43 AM EST Problem: Pain Goal: Patient goal is pain score less than 4, able to rest, and participant in treatment plan as appropriate Description: INTERVENTIONS: 1. Encourage patient or legal promotional representative to report early pain and ask [...] per policy 9. Teach patient or legal promotional representative interventions for comforting Outcome: Progressing Note: [...] at the bedside 7. Instruct patient/ patient promotional representative about use of safety devices 8. Include patient/ patient promotional representative in decisions related to safety Outcome: [...] hygiene technique. 7. Identify and instruct patient/patient promotional representative in use of appropriate isolation precautionsfor identified infection/symptoms. 8. Provide and discuss with patient/patient promotional representative on educational MDRO sheet. 9. Encourage and monitor nutritional status daily and consult transonic engineer if indicated. 10. Implement neutropenic guidelines as needed. Outcome: Progressing Note: Evaluation of progress towards goal: Lines and tubing are clean and maintained. Caps and dressing are changed when appropriate. Problem: Knowledge Deficit Goal: Patient/patient promotional representative demonstrates understanding of disease process, treatment plan,medications, and discharge instructions Description: INTERVENTIONS 1. Complete learning assessment and assess knowledge base 2. Provide teaching at level of understanding 3. Provide teaching via preferred learning method(s) Outcome: Progressing Note: Evaluation of progress towards goal: Patient needs reinforcement to demonstrate understandingof disease process and treatment. Education provided when [...] injury from restraints (Restraint for Interference with Cast Iron Dipper) Description: INTERVENTIONS: 1. Determine that other, less restrictive measures have been tried or would not be effective beforeapplying the restraint 2. Evaluate the patient's condition [...] Q2 checks on restraints. [facility] of Present illness Narrative* Joaquín Kenny MD - 11/12/2024 9:22 AM EST Images from the original note [...] data in the 24 hours ending 11/12/24 0922 No intake/output data recorded. WEIGHT: Last 3 [...] Results from last 7 days Lab Units 11/12/2462311/11/24 0711/10/24 0611/09/24 0307 11/07/24 0735 11/07/24 0304 TOTAL PROTEIN [...] Results from last 7 days Lab Units 11/12/2462311/11/24 0711/10/2459911/09/24 0307 11/08/24 0610 WBC X10E9/L 10.3 9.9 11.3* 10.4 11.0 HEMOGLOBIN g/dL 11.6* 11.6* 12.4 12.0 9.5* HEMATOCRIT % 34.6* 34.3* 37.4 34.5* 27.9* PLATELETS X10E9/L 222 187 195 210 203 Lab Results Component Value Date IRON 70 11/08/2024 TIBC 358 11/08/2024 FERRITIN 214 11/08/2024 IRONSAT 20 11/08/2024 Results from last 7 days Lab Units 11/12/2462311/11/24 0711/10/24 0611/09/24 0307 11/08/24 1524 BEDSIDE GLUCOSE mg/dL -- -- -- -- 153* GLUCOSE mg/dL 90 95 92 90 -- Results from last 7 days Lab Units 11/12/2462311/11/24 0711/10/24 0611/09/24 0307 11/08/24 0610 CK TOTAL U/L 2,824* [...] rhabdomyolysis in the setting of seizures. Creatinine continuesto improve 2. Rhabdomyolysis in the setting of [...] For questions please call: Answering Service at [phone] Or Office at [phone] This note was created with the assistance of a speech-recognition program. Although the intention is to generate a document that actually reflects the content of the visit, no guarantees can be provided that every mistake has been identified and corrected by editing. * Nestor Ramsey MD - 11/11/2024 12:54 PM EST Images from the original note were [...] suspects this may just have been a flare-upof the eczema. Apparently the rashes coming back [...] Units 11/11/24 0709 11/10/24 0600 11/09/24 0307 WBC X10E9/L 9.9 11.3* 10.4 HEMOGLOBIN g/dL 11.6* 12.4 12.0 HEMATOCRIT % 34.3* 37.4 34.5* PLATELETS X10E9/L 187 195 210 Results from last 7 days Lab Units 11/11/24 0709 11/10/24 0600 11/09/24 0307 MAGNESIUM mg/dL 1.5* 1.9 1.7* Lab Results Component Value Date CALCIUM 8.6 11/11/2024 Lab Results Component Value Date IRON 70 11/08/2024 TIBC 358 11/08/2024 FERRITIN 214 11/08/2024 Please contact me at [phone] (Office) or [phone] (Answering service) with any questions. Please feel free to contact me through [employer] Secure chat during the daytime hours, if no response after 5 minutes then call the answering service. Nestor Ramsey MD [facility] This note was created with the assistance of a speech-recognition program. Although the intention is to generate a document that actually reflects the content of the visit, no guarantees can be provided that every mistake has been identified and corrected by editing. * Georgette Morris, TEST OPERATOR-SEATING AND MOBILITY TECHNOLOGIST - 11/11/2024 12:45 PM EST Images from the original note were [...] Min: 36.7 C (98.1 F) Max: 37.8 C(100 F) General Appearance: Awake, alert, and in [...] Value Units Date/Time Resp Pathogens Panel/SARS CoV-2 [[id number]] (Abnormal) Collected: 11/11/24 0840 Specimen: Nasopharynx Updated: [...] 2 Not Detected Resp Pathogens Panel/SARS CoV-2 [[id number]] Collected: 11/05/24 0156 Specimen: Nasopharynx Updated: 11/05/24 [...] 2 Not Detected Mrsa Pcr nasal swab [[id number]] Collected: 11/05/24 0156 Specimen: Nasal Updated: 11/05/24 0340 Mrsa PCR Negative Urine culture [[id number]] Collected: 11/04/24 2257 Specimen: Urine, Clean Catch Midstream Updated: 11/06/24 1422 Culture 10,000 to 50,000 ORGANISMS/mL NORMAL URO GENITAL RAYMOND SARS/FLU A+B/RSV by NAAT/Molecular (M4RT Collection Tube) [[id number]] Collected: 11/04/24 1913 Specimen: Nasopharynx Updated: 11/04/242005 FLU A PCR Negative FLU B PCR Negative RSV by PCR Negative SARS CoV 2 BY PCR Not Detected Blood culture [[id number]] Collected: 11/04/24 181 Specimen: Blood Updated: 11/09/24 2238 Culture NO GROWTH 5 DAYS Blood culture [[id number]] Collected: 11/04/24 1715 Specimen: Blood Updated: 11/09/24 [...] From 7AM-7PM: Our team prefers to use [employer] for communication. From 7PM-7AM: Please call for our answering service. VIJAYA Lazar 11/11/24 6707 * Esau Barboza RPH - 11/11/2024 12:43 PM EST [facility] Department of Pharmacy Pharmacist to Physician Communication The dose of oseltamivir for influenza A has been changed to 75 mg once followed by 30 mg every [address] [facility] approved renal dosing guidelines, based on an estimated creatinine clearance is 52 mL/min (A) (by C-G formula based on SCr of 1.44 mg/dL (H)). Thank you, Esau Barboza RPH * Oliverio Dennis MD - 11/11/2024 12:21 PM EST Images from the original note were not included. Principal Problem: Seizure (CMS-HCC) Chief Complaint: Low-grade fever, congestion, rash seems to be coming back ASSESSMENT AND PLAN: Patient is a 24-year-old female with known Hx/o Seizure disorder, Depression/Anxiety, Eczema, Gastritis, former smoker initially admitted to ICU presented on 11/04/2024 with recurrent seizures, rash.Once stabilized was transferred to floor under [facility] as primary on 11/07/2024. 1. Breakthrough seizure [...] Value Units Date/Time Resp Pathogens Panel/SARS CoV-2 [[id number]] (Abnormal) Collected: 11/11/24 0840 Specimen: Nasopharynx Updated: [...] 2 Not Detected Resp Pathogens Panel/SARS CoV-2 [[id number]] Collected: 11/05/24 0156 Specimen: Nasopharynx Updated: 11/05/24 [...] 2 Not Detected Mrsa Pcr nasal swab [[id number]] Collected: 11/05/24 0156 Specimen: Nasal Updated: 11/05/24 0340 Mrsa PCR Negative Urine culture [[id number]] Collected: 11/04/24 2257 Specimen: Urine, Clean Catch Midstream Updated: 11/06/24 1422 Culture 10,000 to 50,000 ORGANISMS/mL NORMAL URO GENITAL RAYMOND SARS/FLU A+B/RSV by NAAT/Molecular (M4RT Collection Tube) [[id number]] Collected: 11/04/24 191 Specimen: Nasopharynx Updated: 11/04/242005 FLU A PCR Negative FLU B PCR Negative RSV by PCR Negative SARS CoV 2 BY PCR Not Detected Blood culture [[id number]] Collected: 11/04/24 1812 Specimen: Blood Updated: 11/09/24 2238 Culture NO GROWTH 5 DAYS Blood culture [[id number]] Collected: 11/04/24 1715 Specimen: Blood Updated: 11/09/24 [...] This note was completed using a voice cna pct system. Every effort was made to ensure accuracy. However, inadvertent computerized cna pct errors may be present. * Carline Willard RN - 11/10/2024 8:10 PM EST Images from the original note were not included. FOLLOW-UP: Post-Intensive Care Rounding Note Patient: Yolanda Villanueva : 2000 Age: 24 y.o. Length of Stay: 5 days Admission Diagnosis: Seizure ([facility]) [R56.9] Electrolyte abnormality [E87.8] Reviewing patient due to her recent transfer out from Intensive Care. Recorded vital signs are stable and the patient is not noted to be in any apparent distress. Telemetry and monitoring noted. Staff may call with any issues or concerns regarding her clinical presentation or stability. Thank you, Carline Willard RN Rapid Response: [facility] * Devon Liu RN - 11/10/2024 12:31 PM EST Images from the original note were not included. FOLLOW-UP: Post-Intensive Care Rounding Note Patient: Yolanda Villanueva : 2000 Age: 24 y.o. Length of Stay: 5 days Admission Diagnosis: Seizure ([facility]) [R56.9] Reviewing patient due to her recent transfer out from Intensive Care. Recorded vital signs are stable and the patient is not noted to be in any apparent distress. Telemetry and monitoring noted. Staff may call with any issues or concerns regarding her clinical presentation or stability. Thank you, Devon Liu RN Rapid Response: [facility] * Nestor Ramsey MD - 11/10/2024 10:14 AM EST Images from the original note [...] suspects this may just have been a flare-upof the eczema. 7. Volume status: We have [...] 150 mL/hr, Last Rate: 150 mL/hr (11/09/24 2931) Laboratory Studies Results from last 7 days [...] FERRITIN 214 11/08/2024 Please contact me at [phone] (Office) or [phone] (Answering service) with any questions. Please feel free to contact me through [employer] Secure chat during the daytime hours, if no response after 5 minutes then call the answering service. Nestor Ramsey MD [facility] This note was created with the assistance of a speech-recognition program. Although the intention is to generate a document that actually reflects the content of the visit, no guarantees can be provided that every mistake has been identified and corrected by editing. * Georgette Morris, TEST OPERATOR-SEATING AND MOBILITY TECHNOLOGIST - 11/10/2024 10:12 AM EST Images from the original note were not included. Division of Infectious Diseases - Progress Note Infectious Diseases Patient name: Yolanda Ma Back Patient Today's Date and Time: 11/10/2024, 10:12 [...] such as enterovirus or drug rash from [facility] Neurology following Rhabdomyolysis RAKESH Nephrology following [...] Min: 36.6 C (97.8 F) Max: 37.9 C(100.2 F) General Appearance: Awake, alert, and in [...] Value Units Date/Time Resp Pathogens Panel/SARS CoV-2 [[id number]] Collected: 11/05/24 015 Specimen: Nasopharynx Updated: 11/05/24 [...] 2 Not Detected Mrsa Pcr nasal swab [[id number]] Collected: 11/05/24 0156 Specimen: Nasal Updated: 11/05/24 0340 Mrsa PCR Negative Urine culture [[id number]] Collected: 11/04/24 2257 Specimen: Urine, Clean Catch Midstream Updated: 11/06/24 1422 Culture 10,000 to 50,000 ORGANISMS/mL NORMAL URO GENITAL RAYMOND SARS/FLU A+B/RSV by NAAT/Molecular (M4RT Collection Tube) [[id number]] Collected: 11/04/241912 Specimen: Nasopharynx Updated: 11/04/242005 FLU A PCR Negative FLU B PCR Negative RSV by PCR Negative SARS CoV 2 BY PCR Not Detected Blood culture [[id number]] Collected: 11/04/24 181 Specimen: Blood Updated: 11/09/242237 Culture NO GROWTH 5 DAYS Blood culture [[id number]] Collected: 11/04/24 1715 Specimen: Blood Updated: 11/09/24 224 Culture NO GROWTH 5 DAYS Medications: amLODIPine, [...] From 7AM-7PM: Our team prefers to use [employer] for communication. From 7PM-7AM: Please call for our answering service. VIJAYA Lazar 11/08/24 1131 VIJAYA Lazar 11/09/24 1651 VIJAYA Lazar 11/10/24 1336 * Oliverio Dennis MD - 11/10/2024 8:24 AM EST Principal Problem: Seizure ([facility]) Chief Complaint: Diarrhea is better, 2 bowel movements since yesterday, complains of pain at the site where she bit her tongue ASSESSMENT AND PLAN: Patient is a 24-year-old female with known Hx/o Seizure disorder, Depression/Anxiety, Eczema, Gastritis, former smoker initially admitted to ICU presented on 11/04/2024 with recurrent seizures, rash.Once stabilized was transferred to floor under [facility] as primary on 11/07/2024. 1. Breakthrough seizure [...] mentions diarrhea has improved with only 2 bowelmovements since yesterday, complains of pain at the [...] Value Units Date/Time Resp Pathogens Panel/SARS CoV-2 [[id number]] Collected: 11/05/24 015 Specimen: Nasopharynx Updated: 11/05/24314 Specimen Source NASO [...] 2 Not Detected Mrsa Pcr nasal swab [[id number]] Collected: 11/05/24 0156 Specimen: Nasal Updated: 11/05/24 0340 Mrsa PCR Negative Urine culture [[id number]] Collected: 11/04/24 225 Specimen: Urine, Clean Catch Midstream Updated: 11/06/24 1422 Culture 10,000 to 50,000 ORGANISMS/mL NORMAL URO GENITAL RAYMOND SARS/FLU A+B/RSV by NAAT/Molecular (M4RT Collection Tube) [[id number]] Collected: 11/04/24 1913 Specimen: Nasopharynx Updated: 11/04/242005 FLU A PCR Negative FLU B PCR Negative RSV by PCR Negative SARS CoV 2 BY PCR Not Detected Blood culture [[id number]] Collected: 11/04/24 181 Specimen: Blood Updated: 11/09/24 223 Culture NO GROWTH 5 DAYS Blood culture [[id number]] Collected: 11/04/24 1715 Specimen: Blood Updated: 11/09/24 [...] This note was completed using a voice cna pct system. Every effort was made to ensure accuracy. However, inadvertent computerized cna pct errors may be present. * Christian Griffiths RN - 11/09/2024 7:28 PM EST Images from the original note were not included. Post-Intensive Care Rounding Note Patient: Yolanda Villanueva : 2000 Age: 24 y.o. Length of Stay: 4 days Admission Diagnosis: Seizure ([facility]) [R56.9] Rapid response rounding on patient after transfer out of ICU. No acute changes noted. Staff encouraged to call with any issues, questions or concerns that may arise regarding the patient throughout the shift. Thank you, Prashant Griffitsh RN Rapid Response: [facility] * Georgette Morris APRN-SEATING AND MOBILITY TECHNOLOGIST - 11/09/2024 11:41 AM EST Images from the original note [...] such as enterovirus or drug rash from [facility] Seizure Neurology following Rhabdomyolysis RAKESH [...] Value Units Date/Time Resp Pathogens Panel/SARS CoV-2 [[id number]] Collected: 11/05/24 0156 Specimen: Nasopharynx Updated: 11/05/24 [...] 2 Not Detected Mrsa Pcr nasal swab [[id number]] Collected: 11/05/24 0156 Specimen: Nasal Updated: 11/05/24 0340 Mrsa PCR Negative Urine culture [[id number]] Collected: 11/04/24 225 Specimen: Urine, Clean Catch Midstream Updated: 11/06/24 1422 Culture 10,000 to 50,000 ORGANISMS/mL NORMAL URO GENITAL RAYMOND SARS/FLU A+B/RSV by NAAT/Molecular (M4RT Collection Tube) [[id number]] Collected: 11/04/24 191 Specimen: Nasopharynx Updated: 11/04/242005 FLU A PCR Negative FLU B PCR Negative RSV by PCR Negative SARS CoV 2 BY PCR Not Detected Blood culture [[id number]] Collected: 11/04/24 181 Specimen: Blood Updated: 11/08/242235 Culture NO GROWTH 4 DAYS Blood culture [[id number]] Collected: 11/04/24 1715 Specimen: Blood Updated: 11/08/242237 Culture NO GROWTH 4 DAYS Medications: amLODIPine, 5 mg, oral, Daily heparin (porcine), 5,000 Units, subcutaneous, Q12H VANESSA lacosamide, 100 mg, oral, BID levETIRAcetam, 500 mg, oral, BID nicotine, 1 patch, transdermal, Daily Thank you for allowing us to participate in the care of this patient. Please call with questions. VIJAYA Griffith From 7AM-7PM: Our team prefers to use [employer] for communication. From 7PM-7AM: Please call for our answering service. VIJAYA Lazar 11/08/24 1131 VIJAYA Lazar 11/09/24 1651 * Oliverio Dennis MD - 11/09/2024 9:49 AM EST Principal Problem: Seizure (CMS-HCC) Chief Complaint: Diarrhea, had 2-3 bowel movements since yesterday ASSESSMENT AND PLAN: Patient is a 24-year-old female with known Hx/o Seizure disorder, Depression/Anxiety, Eczema, Gastritis, former smoker initially admitted to ICU presented on 11/04/2024 with recurrent seizures, rash.Once stabilized was transferred to floor under [facility] as primary on 11/07/2024. 1. Breakthrough seizure [...] diet. Rash related to her eczema seems tohave improved, denies hemoptysis, hematemesis, gross hematuria. Disappointed with having to stay inthe hospital till further recovery of renal function [...] Value Units Date/Time Resp Pathogens Panel/SARS CoV-2 [[id number]] Collected: 11/05/24 0156 Specimen: Nasopharynx Updated: 11/05/24 [...] 2 Not Detected Mrsa Pcr nasal swab [[id number]] Collected: 11/05/24 0156 Specimen: Nasal Updated: 11/05/24 0340 Mrsa PCR Negative Urine culture [[id number]] Collected: 11/04/24 225 Specimen: Urine, Clean Catch Midstream Updated: 11/06/24 1422 Culture 10,000 to 50,000 ORGANISMS/mL NORMAL URO GENITAL RAYMOND SARS/FLU A+B/RSV by NAAT/Molecular (M4RT Collection Tube) [[id number]] Collected: 11/04/24 1913 Specimen: Nasopharynx Updated: 11/04/24 2006 FLU A PCR Negative FLU B PCR Negative RSV by PCR Negative SARS CoV 2 BY PCR Not Detected Blood culture [[id number]] Collected: 11/04/24 1812 Specimen: Blood Updated: 11/08/24 223 Culture NO GROWTH 4 DAYS Blood culture [[id number]] Collected: 11/04/24 1715 Specimen: Blood Updated: 11/08/242237 Culture NO GROWTH 4 DAYS EEG: This [...] This note was completed using a voice cna pct system. Every effort was made to ensure accuracy. However, inadvertent computerized cna pct errors may be present. * Marjorie Curiel MD - 11/09/2024 9:18 AM EST Images from the original note [...] from last 7 days Lab Units 11/09/2430611/08/24 0610 11/07/24 030 WBC X10E9/L 10.4 11.0 18.1* HEMOGLOBIN g/dL 12.0 9.5* 10.5* HEMATOCRIT % 34.5* 27.9* 30.8* PLATELETS X10E9/L 210 203 243 Results from last 7 days Lab Units 11/09/2430611/08/24 0610 11/07/24 0304 MAGNESIUM mg/dL 1.7* 1.9 1.9 Lab [...] stop lamotrigine due to rash. I note andappreciate input of the neurology service. Now on [...] agree with recommendation to hold psychotropic medications especiallythe serotonin reuptake inhibitor at this time. RECOMMENDATION 1. Continue IV fluid administration 2.Replace magnesium deficit. 3. For hypertension will add amlodipine 5 mg daily MARJORIE CURIEL MD,PhD. [facility] ANY QUESTIONS FEEL FREE TO CALL: 1. OFFICE [phone] 2. ANSWERING SERVICE: [phone] * Marjorie Curiel MD - 11/08/2024 10:50 AM EST NEPHROLOGY DAILY PROGRESS NOTE Subjective: She is awake alert and oriented. Has seen a significant improvement rash. Vital signs in last 24 hours: Vitals: 11/08/24 0600 11/08/24 0800 11/08/24 0900 11/08/24 1000 BP: (!) 130/115 (!) 146/106 132/90 Pulse: 85 67 68 79 Resp: Temp: 36.9 C (98.5 F) TempSrc: Oral [...] 150 mL/hr, Last Rate: 150 mL/hr (11/07/24 5906) Nutrition: Dietary Orders (From admission, onward) Start [...] stop lamotrigine due to rash. I note andappreciate input of the neurology service. Now on [...] Ringer's at 150 mL/hr MARJORIE CURIEL MD,PhD. [facility] ANY QUESTIONS FEEL FREE TO CALL: 1. OFFICE [phone] 2. ANSWERING SERVICE: [phone] * Georgette Morris, TEST OPERATOR-[facility] - 11/08/2024 8:30 AM EST Images from the original note [...] such as enterovirus or drug rash from [facility] Seizure Neurology following Rhabdomyolysis RAKESH [...] Min: 36.8 C (98.3 F) Max: 37.1 C(98.8 F) General Appearance: Awake, alert, and in [...] Value Units Date/Time Resp Pathogens Panel/SARS CoV-2 [[id number]] Collected: 11/05/24 0156 Specimen: Nasopharynx Updated: 11/05/24 [...] 2 Not Detected Mrsa Pcr nasal swab [[id number]] Collected: 11/05/24 0156 Specimen: Nasal Updated: 11/05/24 0340 Mrsa PCR Negative Urine culture [[id number]] Collected: 11/04/24 225 Specimen: Urine, Clean Catch Midstream Updated: 11/06/24 1422 Culture 10,000 to 50,000 ORGANISMS/mL NORMAL URO GENITAL RAYMOND SARS/FLU A+B/RSV by NAAT/Molecular (M4RT Collection Tube) [[id number]] Collected: 11/04/24 191 Specimen: Nasopharynx Updated: 11/04/242005 FLU A PCR Negative FLU B PCR Negative RSV by PCR Negative SARS CoV 2 BY PCR Not Detected Blood culture [[id number]] Collected: 11/04/24 181 Specimen: Blood Updated: 11/07/242235 Culture NO GROWTH 3 DAYS Blood culture [[id number]] Collected: 11/04/24 1715 Specimen: Blood Updated: 11/07/242237 [...] From 7AM-7PM: Our team prefers to use [employer] for communication. From 7PM-7AM: Please call for our answering service. VIJAYA Lazar 11/08/24 1131 * Oliverio Dennis MD - 11/08/2024 8:09 AM EST Principal Problem: Seizure (CMS-HCC) Chief Complaint: Diarrhea, had 3-4 bowel movements since yesterday ASSESSMENT AND PLAN: Patient is a 24-year-old female with known Hx/o Seizure disorder, Depression/Anxiety, Eczema, Gastritis, former smoker initially admitted to ICU presented on 11/04/2024 with recurrent seizures, rash.Once stabilized was transferred to floor under [facility] as primary on 11/07/2024. 1. Breakthrough seizure [...] diet. Rash related to her eczema seems tohave improved, denies hemoptysis, hematemesis, gross hematuria. OBJECTIVE [...] Value Units Date/Time Resp Pathogens Panel/SARS CoV-2 [[id number]] Collected: 11/05/24155 Specimen: Nasopharynx Updated: 11/05/24 0315 [...] 2 Not Detected Mrsa Pcr nasal swab [[id number]] Collected: 11/05/24 015 Specimen: Nasal Updated: 11/05/24 0340 Mrsa PCR Negative Urine culture [[id number]] Collected: 11/04/242256 Specimen: Urine, Clean Catch Midstream Updated: 11/06/24 1422 Culture 10,000 to 50,000 ORGANISMS/mL NORMAL URO GENITAL RAYMOND SARS/FLU A+B/RSV by NAAT/Molecular (M4RT Collection Tube) [[id number]] Collected: 11/04/24 191 Specimen: Nasopharynx Updated: 11/04/242005 FLU A PCR Negative FLU B PCR Negative RSV by PCR Negative SARS CoV 2 BY PCR Not Detected Blood culture [[id number]] Collected: 11/04/24 181 Specimen: Blood Updated: 11/07/24 223 Culture NO GROWTH 3 DAYS Blood culture [[id number]] Collected: 11/04/24 1715 Specimen: Blood Updated: 11/07/242237 [...] This note was completed using a voice cna pct system. Every effort was made to ensure accuracy. However, inadvertent computerized cna pct errors may be present. * Avni Ríos, DO - 11/07/2024 10:43 PM EST Images from the original note were not included. Division of Infectious Diseases - Progress Note Academic Team Please contact us via [facility] chat. After hours, call [phone] Patient name: Yolanda Ma Back Patient Today's Date and Time: 11/07/2024, 10:43 PM Admission Date: 11/05/2024 Impression : Sepsis with borderline fever and leukocytosis thought to be of bacterial origin with no clear etiology, LP was attempted and failed at the outside facility, due to improvement in mental status repeatLP was not done. The source seems to be intra-abdominal but no clear fluid collection and the patient is not having diarrhea anymore, looks like she has passed the large amount of liquid stool present in her colon in the [place] ED and the stool was not sent for testing. Her abdomen is fairly benign on exam. Likelihood of meningitis is fairly low at this point. She does have rhabdomyolysis with very high CK, myoglobin and ASAT/ALT and RAKESH with a creatinine of2.3 up jeni 1.8 up from normal baseline, which can explain the high procalcitonin even in the absence of a bacterial infection These are starting to trend down Rash - either viral syndrome (enterovirus?) or drug rash, possibly related to keppra - much improved today and she is still on IV keppra. She did get steroids. Defer to neurology decision to continuewith it or not. Recommendations: Consider stopping the [...] Ht 162.6 cm (5' 4.02 ) Wt 93.2kg (205 lb 7.5 oz) SpO2 90% BMI 35.25 kg/m Temperature Range: Temp: 37.1 C (98.8 F) Temp Av.8 C (98.3 F) Min: 36.6 C (97.9 F) Max: 37.1 C(98.8 F) General Appearance: Awake, alert, and in [...] or primary neurological disorders. Ray Mina MD [facility] I have personally reviewed the above studies . Cultures: Microbiology Results Procedure Component Value Units Date/Time Resp Pathogens Panel/SARS CoV-2 [[id number]] Collected: 11/05/24 015 Specimen: Nasopharynx Updated: 11/05/24 [...] 2 Not Detected Mrsa Pcr nasal swab [[id number]] Collected: 11/05/24 0156 Specimen: Nasal Updated: 11/05/24 0340 Mrsa PCR Negative Urine culture [[id number]] Collected: 11/04/24 2257 Specimen: Urine, Clean Catch Midstream Updated: 11/06/24 1422 Culture 10,000 to 50,000 ORGANISMS/mL NORMAL URO GENITAL RAYMOND SARS/FLU A+B/RSV by NAAT/Molecular (M4RT Collection Tube) [[id number]] Collected: 11/04/24 191 Specimen: Nasopharynx Updated: 11/04/242005 FLU A PCR Negative FLU B PCR Negative RSV by PCR Negative SARS CoV 2 BY PCR Not Detected Blood culture [[id number]] Collected: 11/04/24 181 Specimen: Blood Updated: 11/07/242235 Culture NO GROWTH 3 DAYS Blood culture [[id number]] Collected: 11/04/24 1715 Specimen: Blood Updated: 11/07/242237 [...] progress note was completed using a voice cna pct system. Every effort was made to ensure accuracy; however, inadvertent computerized cna pct errors may be present. Thank you for allowing us to participate in the care of this patient. Avni Ríos DO [place] [facility] Pager: From 7AM-7PM: From 7AM-7PM: Please use [employer] for communication. From 7PM-7AM: Please call for our answering service. * Brigida Rae MD - 11/07/2024 2:57 PM EST Images from the original note were not included. [facility] Neurology General Neurology Primary Progress Note Primary Neurology service: [phone] Chief Complaint: Interval History: Yolanda Villanueva is a 24 y.o. female patient with previous diagnosis of left temporal epilepsy, who was maintained on lamotrigine and Keppra 750 mg p.o. b.i.d., however patient stopped lamotrigine3 days prior to this admission due to skin rash and concern for Israel Gab syndrome. Patient admitted with breakthrough seizure, found to have elevated WBCs, rhabdomyolysis, RAEKSH and elevated LFTs. Patient was maintained in [...] was awake, alert, oriented x4 and was ableto provide meaningful history today. Patient and her [...] off Brigida Rae MD PGY-4, Neurology Resident [facility] Staffed with: (Dr. Skelton) This patient is being followed by the Neurology Resident service. Contact attending directly during these hours: Thursday to 7:30-8:30 A.M. to Thursday 12-1:00 p.m. Primary Neurology service: [phone] Consult neurology service: [phone] Resident Stroke Service: [phone] If the patient belongs to the Stroke [...] per excellent resident note. Robin Skelton MD [facility] of Neurology [facility] 11/07/24 * VIJAYA Kearns - 11/07/2024 1:26 PM EST Critical Care Interim Progress Note: Yolanda Summer Back 1:27 PM Patient has orders placed to be transferred out of the ICU. Sign-out has been called to Dr. Gutierrez with [facility]. Today is the 2nd call to [facility] for transfer. [facility] to assume care of patient on 11/08/2024 if patient remains in ICU with orders to transfer. Critical Care will sign off at time of transfer out ofICU. Thank you. VIJAYA Kearns Department of Anesthesiology and Critical Care Medicine 11/07/24 1:28 PM Please contact me via [employer] VIJAYA Kearns 11/07/24 4506 * Kilo Yang MD - 11/07/2024 11:29 AM EST CRITICAL CARE PROGRESS NOTE Name: Yolanda Villanueva [...] immuno pathological process in the setting of truncalrash, rhabdomyolysis, and transaminitis with unclear etiology. Appreciate [...] in the ICU with orders to transfer. [facility] to assume care of patient tomorrow 11/08/2024 if remains in ICU with orders to transfer. Critical care will sign off upon transfer. Plan of care discussed with Dr. Yang and bedside RN. Christopher Ewry, TEST OPERATOR-SEATING AND MOBILITY TECHNOLOGIST Subjective A 12 point review of systems was obtained was grossly negative. The patient is tearful and wants togo home. At the time of the exam, she denied complaints of chest pain, shortness for breath, nausea, vomiting, abdominal pain, or diarrhea. She does have a nonproductive cough. Hospital Problem: Principal Problem: Seizure ([facility]-HCC) OBJECTIVE Vital Signs Temp: [36.6 C (97.9 [...] Value Units Date/Time Resp Pathogens Panel/SARS CoV-2 [[id number]] Collected: 11/05/24155 Specimen: Nasopharynx Updated: 11/05/24314 Specimen [...] 2 Not Detected Mrsa Pcr nasal swab [[id number]] Collected: 11/05/24 0156 Specimen: Nasal Updated: 11/05/24 0340 Mrsa PCR Negative Urine culture [[id number]] Collected: 11/04/242256 Specimen: Urine, Clean Catch Midstream Updated: 11/06/24 142 Culture 10,000 to 50,000 ORGANISMS/mL NORMAL URO GENITAL RAYMOND SARS/FLU A+B/RSV by NAAT/Molecular (M4RT Collection Tube) [[id number]] Collected: 11/04/241912 Specimen: Nasopharynx Updated: 11/04/242005 FLU A PCR Negative FLU B PCR Negative RSV by PCR Negative SARS CoV 2 BY PCR Not Detected Blood culture [[id number]] Collected: 11/04/24 181 Specimen: Blood Updated: 11/06/242235 Culture NO GROWTH 2 DAYS Blood culture [[id number]] Collected: 11/04/24 171 Specimen: Blood Updated: 11/06/242237 [...] Value Units Date/Time Resp Pathogens Panel/SARS CoV-2 [[id number]] Collected: 11/05/24 015 Specimen: Nasopharynx Updated: 11/05/24 [...] 2 Not Detected Mrsa Pcr nasal swab [[id number]] Collected: 11/05/24 0156 Specimen: Nasal Updated: 11/05/24 0340 Mrsa PCR Negative Urine culture [[id number]] Collected: 11/04/24 225 Specimen: Urine, Clean Catch Midstream Updated: 11/06/24 1422 Culture 10,000 to 50,000 ORGANISMS/mL NORMAL URO GENITAL RAYMOND SARS/FLU A+B/RSV by NAAT/Molecular (M4RT Collection Tube) [[id number]] Collected: 11/04/24 191 Specimen: Nasopharynx Updated: 11/04/242005 FLU A PCR Negative FLU B PCR Negative RSV by PCR Negative SARS CoV 2 BY PCR Not Detected Blood culture [[id number]] Collected: 11/04/24 181 Specimen: Blood Updated: 11/06/242235 Culture NO GROWTH 2 DAYS Blood culture [[id number]] Collected: 11/04/24 171 Specimen: Blood Updated: 11/06/242237 [...] XR, 75 mg, oral, Daily with breakfast Renanadolfo BlancLINDSAY-SEATING AND MOBILITY TECHNOLOGIST 11/07/24 1231 Attestation signed by 1:04 PM [...] choice Stable for transfer out of ICU Kilo Yang MD [facility] Pulmonary / Critical Care * Nestor Ramsey MD - 11/07/2024 11:12 AM EST NEPHROLOGY PROGRESS NOTE Assessment 1. Acute kidney [...] suspects this may just have been a flare-upof the eczema. 7. Volume status: To be near euvolemic. She is currently nonoliguric. Will decide on maintenance IVfluids based on repeat CPK/myoglobin levels Plan 1. [...] TIBC , FERRITIN Please contact me at [phone] (Office) or [phone] (Answering service) with any questions. Please feel free to contact me through [employer] chat during the daytime hours, if no response after 5 minutes then call the answering service. Nestor Ramsey MD [facility] This note was created with the assistance of a speech-recognition program. Although the intention is to generate a document that actually reflects the content of the visit, no guarantees can be provided that every mistake has been identified and corrected by editing. * Deangelo Merrill MD - 11/06/2024 11:56 AM EST Images from the original note were not included. Division of Infectious Diseases - Progress Note Academic Team Please contact us via [facility] chat. After hours, call [phone] Patient name: Yolanda Ma Back Patient Today's Date and Time: 11/06/2024, 11:56 AM Admission Date: 11/05/2024 Impression : Sepsis with borderline fever and leukocytosis thought to be of bacterial origin with no clear etiology, LP was attempted and failed at the outside facility, due to improvement in mental status repeatLP was not done. The source seems to be intra-abdominal but no clear fluid collection and the patient is not having diarrhea anymore, looks like she has passed the large amount of liquid stool present in her colon in the [place] ED and the stool was not sent for testing. Her abdomen is fairly benign on exam. Likelihood of meningitis is fairly low at this point. She does have rhabdomyolysis with very high CK, myoglobin and ASAT/ALT and RAKESH with a creatinine of2.3 up jeni 1.8 up from normal baseline, which can explain the high procalcitonin even in the absence of a bacterial infection Rash - either viral syndrome (enterovirus?) or drug rash, possibly related to keppra - much improved today and she is still on IV keppra. She did get steroids. Defer to neurology decision to continuewith it or not. Recommendations: Consider stopping the [...] Min: 36.6 C (97.8 F) Max: 36.9 C(98.5 F) General Appearance: Awake, alert, and in [...] or primary neurological disorders. Ray Mina MD [facility] [facility] X-ray chest 1 view Result Date: 11/04/2024 XR CHEST 1 VW 11/04/2024 8:13 PM INDICATION: sepsis, seizures, transient alteration of awareness, tachycardia COMPARISON: XR chest 11/04/2024 TECHNIQUE: AP supine radiographic view(s) obtained. FINDINGS: Lines/Tubes/Devices: None. Respiratory: No pleural effusion or focal consolidation. Hypoventilation with bronchovascular crowding. Cardiomediastinum: Nonenlarged silhouette. IMPRESSION: * No acute pulmonary process. Hypoventilation with bronchovascular crowding. Approved by Resident: Gregorio Partida 11/04/2024 8:39 PM Kane Ellington MD have personally reviewed the image(s) and agree with and/oredited the report Finalized by Kane Burger MD on 11/04/2024 9:[address] abdomen and pelvis without contrast Result Date: 11/04/2024 CLINICAL INFORMATION: Sepsis. TECHNIQUE: CT Abdomen and Pelvis without intravenous contrast. All CTscans at this facility use dose modulation, iterative [...] thickening of the maxillary sinuses. Cranium and ext racranial soft tissues: Normal IMPRESSION: No acute or subacute intracranial abnormalities. Finalized by Subhash Colon on 11/04/2024 6:54 PM I have personally reviewed the above studies . Cultures: Microbiology Results Procedure Component Value Units Date/Time Resp Pathogens Panel/SARS CoV-2 [[id number]] Collected: 11/05/24 0156 Specimen: Nasopharynx Updated: 11/05/24 [...] 2 Not Detected Mrsa Pcr nasal swab [[id number]] Collected: 11/05/24 0156 Specimen: Nasal Updated: 11/05/24 0340 Mrsa PCR Negative Urine culture [[id number]] Collected: 11/04/24 2257 Specimen: Urine, Clean Catch Midstream Updated: 11/06/24 0816 Culture <10,000 ORGANISMS/ML NORMAL URO GENITAL RAYMOND SARS/FLU A+B/RSV by NAAT/Molecular (M4RT Collection Tube) [[id number]] Collected: 11/04/24 1913 Specimen: Nasopharynx Updated: 11/04/242005 FLU A PCR Negative FLU B PCR Negative RSV by PCR Negative SARS CoV 2 BY PCR Not Detected Blood culture [[id number]] Collected: 11/04/24 1812 Specimen: Blood Updated: 11/05/24 2237 Culture NO GROWTH 1 DAY Blood culture [[id number]] Collected: 11/04/24 1715 Specimen: Blood Updated: 11/05/24 2238 Culture NO GROWTH 1 DAY Medications: ARIPiprazole, [...] progress note was completed using a voice cna pct system. Every effort was made to ensure accuracy; however, inadvertent computerized cna pct errors may be present. Thank you for allowing us to participate in the care of this patient. - DEANGELO MERRILL MD 11/06/24 11:56 AM [facility] Infectious Diseases Please contact us via [facility] chat * Marie Singh, - 11/06/2024 8:02 AM EST [facility] Progress Note Patient - Yolanda Summer Back Age - 24 y.o. - 2000 ASSESSMENT Severe sepsis with multiorgan dysfunction noted. Source not entirely clear at this time. Note concern for potential DATA TRANSCRIBER infection/meningitis. Altered mental status, possibly toxic/metabolic in etiology vs seizure related / post ictal. Lumbarpuncture attempted unsuccessfully at the outside hospital. Seizure [...] dose precedex due to intermittent agitation Appreciate internal controls consultant care and recs. GI studies pending. [...] of this process. ? CPK elevation from [facility]- case report data On Decadron for possible meningitis Continue aggressive fluids. Will send urine studies. Making great urine but increasing CK of unclear etiology and worsening renal function. May need HD? Will get nephrology involved. SUBJECTIVE Patient seen and examined. She denies any muscle pain. No previous Rheumatologic conditions. No newfever or chills. No new trauma or fall. [...] Radiology None new Dr. Marie Singh DO. [facility] Pulmonary & Critical Care Office: [phone] * Moraima Lin PharmD - 11/05/2024 11:05 AM EST Pharmacokinetic Consult - Vancomycin Dosing Yolanda Villanueva is a 24 y.o. female for whom pharmacy has been consulted for vancomycin dosing for meningitis/DATA TRANSCRIBER infection. Today is day 2 of vancomycin [...] Value Units Date/Time Resp Pathogens Panel/SARS CoV-2 [[id number]] Collected: 11/05/24 0156 Specimen: Nasopharynx Updated: 11/05/24 [...] 2 Not Detected Mrsa Pcr nasal swab [[id number]] Collected: 11/05/24 0156 Specimen: Nasal Updated: 11/05/24 0340 Mrsa PCR Negative Urine culture [[id number]] Resulted: 11/04/24 230 Specimen: Urine Updated: 11/05/24 0216 SARS/FLU A+B/RSV by NAAT/Molecular (M4RT Collection Tube) [[id number]] Collected: 11/04/24 191 Specimen: Nasopharynx Updated: 11/04/242005 FLU A PCR Negative FLU B PCR Negative RSV by PCR Negative SARS CoV 2 BY PCR Not Detected Blood culture [[id number]] Collected: 11/04/24 1812 Specimen: Blood Updated: 11/05/24 1036 Culture NO GROWTH <24 HRS Blood culture [[id number]] Collected: 11/04/24 1715 Specimen: Blood Updated: 11/05/24 [...] Units 11/05/24 0254 VANCOMYCIN ug/mL 28.4 Indication: meningitis/DATA TRANSCRIBER infection Goal Vancomycin Range: Trough 15-20 mcg/mL [...] Thank you for consulting. Fiordaliza Lin PharmD * Kati Ariza [facility] - 11/05/2024 2:19 AM EST Pharmacokinetic Consult - Vancomycin Dosing Yolanda Villanueva is a 24 y.o. female for whom pharmacy has been consulted for vancomycin dosing for meningitis/DATA TRANSCRIBER infection. Today is day 1 of vancomycin [...] Procedure Component Value Units Date/Time Urine culture [[id number]] Resulted: 11/04/24 2305 Specimen: Urine Updated: 11/05/24215 SARS/FLU A+B/RSV by NAAT/Molecular (M4RT Collection Tube) [[id number]] Collected: 11/04/241912 Specimen: Nasopharynx Updated: 11/04/242005 FLU A PCR Negative FLU B PCR Negative RSV by PCR Negative SARS CoV 2 BY PCR Not Detected Blood culture [[id number]] Collected: 11/04/241758 Specimen: Blood, Peripheral Draw Updated: 11/04/241828 Blood culture [[id number]] Collected: 11/04/241758 Specimen: Blood, Peripheral Draw Updated: 11/04/241828 Concurrent Antibiotics: Anti-infectives (From admission, onward) Start [...] 11/05/24 0213 Recent Vancomycin Serum Concentrations: Indication: meningitis/DATA TRANSCRIBER infection Goal Vancomycin Range: Trough 15-20 mcg/mL [...] Thank you for consulting. Kati Ariza RPH * Kati Ariza RPH - 11/05/2024 1:32 AM EST [facility] Department of Pharmacy Pharmacy-Physician Communication Due to a drug shortage, metronidazole the dose interval was adjusted to q12h per temporary [facility] approval. If you need additional information, [place] [phone] . Thank you, documented in this encounterAdena [facility]02-[facility] Consult note* Marjorie Curiel MD - 11/06/2024 2:29 PM EST NEPHROLOGY CONSULT NOTE Date of Admission: 11/05/2024 1:13 AM Reason for Consult: Acute kidney injury Referring Physician: Dr. Singh PCP: OTTONIEL ARIAS MD Chief Complaint: No chief complaint on file. History of Present Illness: Yolanda Villanueva is a 24 y.o. female who is seen at the request of Dr. Singh to evaluate acute kidney injury. The patient presented to an outside hospital on November 04, 2024 after having suffered seizures at home. Apparently she has had a number of seizures recently in her found her unresponsive in bed. She was transferred to the [facility] for ongoing care. Initial laboratories on November 04 sodium 130 potassium 2.8 chloride 99 total CO2 19 BUN 27 creatinine 1.8 calcium 8.2 total protein 8.2 albumin 4.5 AST 356 ALT 122 anion gap was 38 magnesium 2.8. CK total was 26,584. The CK has increased to 32,131. Myoglobin has decreased from 1544-3688. The patient had 6.6 L of urine [...] the large bowel concerning for colitis or enteritis.There was distal esophageal wall thickening A urinalysis showed 70 mg/dL protein less than 1 red blood cell and 1 white blood cell per high-power field. The fractional excretion of sodium was less than 1% the urine protein creatinine ratio was2.45 gram/gram. She is on Keppra for history of seizure disorder. A continuous EEG is in progress. This afternoon she is awake alert and oriented. PMH: Seizure disorder Depression Gastroesophageal reflux disease PSH: Past Surgical History: Procedure Laterality Date COLONOSCOPY N/A 04/10/2023 Performed by Joey Stacy MD at [facility] ESOPHAGOGASTRODUODENOSCOPY N/A 04/10/2023 Performed by Joey Stacy MD at [facility] * No surgery found * Allergies: No Known Allergies Home Meds: Medications Prior to Admission Medication Sig Dispense Refill Last Dose/Taking ARIPiprazole (ABILIFY) 2 mg tablet Take 1 tablet (2 mg total) by mouth in the morning. Taking cyclobenzaprine (FLEXERIL) 10 mg tablet Take 1 tablet (10 mg total) by mouth 2 (two) times a day asneeded for muscle spasms. 10 tablet 0 Other [...] at night and continue on that dose (Patienttaking differently: Take 1 tablet (100 mg total) [...] 99/66 Pulse: 87 83 80 76 Resp: 21 19 22 16 Temp: 36.9 C (98.4 F) TempSrc: [...] JVD, supple, symmetrical, trachea midline and thyroid notenlarged, symmetric, no tenderness/mass/nodules Lungs: clear to auscultation [...] last 7 days Lab Units 11/06/24 0200 11/05/24191711/05/2415711/04/24 1654 SODIUM mmol/L 140 139 136 130* POTASSIUM mmol/L 4.1 4.1 4.0 2.8* CHLORIDE mmol/L 106 105 108 99 CO2 mmol/L 22 24 16* 19* BUN mg/dL 36* 37* 37* 27* CREATININE mg/dL 2.33* 2.43* 2.26* 1.88* CALCIUM mg/dL 7.7* 7.7* 7.4* 8.2* PHOSPHORUS mg/dL 4.6 -- 6.4* -- MAGNESIUM mg/dL 2.1 -- 2.5 2.8* Results from last 7 days Lab Units 11/06/2419911/05/2415711/04/24 1654 WBC X10E9/L 21.6* 31.5* 40.2* HEMOGLOBIN [...] Jevon inhibitors angiotensin receptor blockers or nonsteroidal anti- inflammatory drugs Case discussed with the patient and her family. I advised them that hemodialysis could become a therapeutic consideration in the event that her renal situation would worsened, she become hyperkalemic, acidotic or oliguric. MARJORIE CURIEL MD,PhD. [facility] ANY QUESTIONS FEEL FREE TO CALL: 1. OFFICE [phone] 2. ANSWERING SERVICE: [phone] * Deangelo Merrill MD - 11/05/2024 7:29 PM ESTAssociated Order(s): IP CONSULT TO INFECTIOUS DISEASES Images from the original note were not included. Infectious Diseases Academic Team - Initial Consult Note - Please contact us via [facility] chat. After hours, call [phone] Patient name: Yolanda Ma Back Patient Today's Date and Time: 11/05/2024, 7:29 PM Admission Date: 11/05/2024 Impression: Sepsis with borderline fever and leukocytosis thought to be of bacterial origin with no clear etiology, LP was attempted and failed at the outside facility, due to improvement in mental status repeatLP was not done. The source seems to be intra-abdominal but no clear fluid collection and the patient is not having diarrhea which is inconsistent with the large amount of liquid stool present in hercolon. Her abdomen is fairly benign on exam. I agree with Neurology that the risk of meningitis is fairly low. She does have rhabdomyolysis with very high CK, myoglobin and ASAT/ALT and RAKESH with a creatinine of2.2 up jeni 1.8 up from normal baseline, [...] of obesity with a BMI of 34 MO depression, gastritis, seizure disorder - she startedhaving seizures about a year ago. No clear etiology. Recently she had some changes on her antiepileptics and she developed a rash after Keppra was added. She presented to [facility] in [place] on November 04 yesterday with seizures. She [...] Eczema 2009 GERD (gastroesophageal reflux disease) Seizures ([facility]) Visual impairment 2004 Past Surgical History: Past Surgical History: Procedure Laterality Date COLONOSCOPY N/A 04/10/2023 Performed by Joey Stacy MD at [facility] ESOPHAGOGASTRODUODENOSCOPY N/A 04/10/2023 Performed by Joey Stacy MD at [facility] Medications: ARIPiprazole, 2 mg, oral, Daily cefTRIAXone [...] Min: 36.6 C (97.9 F) Max: 37.2 C(98.9 F) General Appearance: Awake, alert, and in no apparent distress. She looks mildly confused but she isconversant and able to give history. Head: Normocephalic, [...] or primary neurological disorders. Ray Mina MD [facility] [place] [facility] X-ray chest 1 view Result Date: 11/04/2024 XR CHEST 1 VW 11/04/2024 8:13 PM INDICATION: sepsis, seizures, transient alteration of awareness, tachycardia COMPARISON: XR chest 11/04/2024 TECHNIQUE: AP supine radiographic view(s) obtained. FINDINGS: Lines/Tubes/Devices: None. Respiratory: No pleural effusion or focal consolidation. Hypoventilation with bronchovascular crowding. Cardiomediastinum: Nonenlarged silhouette. IMPRESSION: * No acute pulmonary process. Hypoventilation with bronchovascular crowding. Approved by Resident: Gregorio Partida 11/04/2024 8:39 PM Kane Ellington MD have personally reviewed the image(s) and agree with and/oredited the report Finalized by Kane Burger MD on 11/04/2024 9:[address] abdomen and pelvis without contrast Result Date: 11/04/2024 CLINICAL INFORMATION: Sepsis. TECHNIQUE: CT Abdomen and Pelvis without intravenous contrast. All CTscans at this facility use dose modulation, iterative [...] thickening of the maxillary sinuses. Cranium and ext racranial soft tissues: Normal IMPRESSION: No acute or subacute intracranial abnormalities. Finalized by Subhash Colon on 11/04/2024 6:54 PM I have personally reviewed these studies. Cultures: Microbiology Results Procedure Component Value Units Date/Time Resp Pathogens Panel/SARS CoV-2 [[id number]] Collected: 11/05/24 015 Specimen: Nasopharynx Updated: 02/01/25 0315 Specimen Source NASO PHARYNX Adenovirus Detection [...] 2 Not Detected Mrsa Pcr nasal swab [[id number]] Collected: 11/05/24 0156 Specimen: Nasal Updated: 11/05/24 0340 Mrsa PCR Negative Urine culture [[id number]] Resulted: 11/04/24 230 Specimen: Urine Updated: 11/05/24 0216 SARS/FLU A+B/RSV by NAAT/Molecular (M4RT Collection Tube) [[id number]] Collected: 11/04/24 191 Specimen: Nasopharynx Updated: 11/04/24 2006 FLU A PCR Negative FLU B PCR Negative RSV by PCR Negative SARS CoV 2 BY PCR Not Detected Blood culture [[id number]] Collected: 11/04/24 1812 Specimen: Blood Updated: 11/05/24 1036 Culture NO GROWTH <24 HRS Blood culture [[id number]] Collected: 11/04/24 1715 Specimen: Blood Updated: 11/05/24 1038 Culture NO GROWTH <24 HRS Thank you for allowing us to participate in the care of this patient. - DEANGELO MERRILL MD 11/05/24 7:29 PM [facility] Infectious Diseases Please contact us via [facility] chat * Nathalie Mooney MD - 11/05/2024 2:48 AM ESTAssociated Order(s): IP CONSULT TO NEUROLOGY Images from the original note were not included. [facility] Neurology General Neurology Consultation Note Consult Neurology Service: [phone] Primary Team: critical care Chief Complaint and Reason for Consultation: breakthrough seizures History: Yolanda Villanueva is a 24 y.o. year old female for whom Neurology was consulted for chief complaint of breakthrough seizures. Patient has a past medical history notable for seizure disorder, anxiety, depression, gastritis, and tobacco use. Patient initially presented to outside hospital for concerns of recurrent seizures at home. Historyis mainly obtained per chart review and family [...] another episode of seizure-like activity. Additionally, spouse statesthat he also thinks that the patient may [...] be tachycardic and tachypneic with initial labs remarkablefor elevated WBC count of 40, hyponatremia of 130, hypokalemia of 2.8, CK of 26,000, procalcitonin 40, rapid lactate of 2.9, and negative COVID and flu. A CT brain was obtained which she was negativefor any acute intracranial abnormalities. CT abdomen and pelvis showed possible colitis/enteritis. At outside hospital a bedside lumbar puncture was attempted however failed. Patient was started on empiric antibiotics for possible meningitis as well as colitis/enteritis. Patient was then transferred to [facility] for further management. On initial examination, patient [...] disease) 02/06/2023 Visual impairment 02/06/2023 Seizure disorder ([facility]) 01/11/2024 Seizure-like activity ([facility]) 09/12/2024 Focal epilepsy ([facility]) 09/20/2024 Resolved Ambulatory Problems Diagnosis Date Noted No Resolved Ambulatory Problems Past Medical History: Diagnosis Date Seizures ([facility]) Family History: Family History [...] IVPB, 3,000 mg, intravenous, PRN, Richard Prielipp, TEST OPERATOR-SEATING AND MOBILITY TECHNOLOGIST cefEPime (MAXIPIME) IVPB 2000 mg/50 mL in dextrose 5% duplex (40 mg/mL premix), 2,000 mg, intravenous, Q12H, Richard Prielipp, TEST OPERATOR-SEATING AND MOBILITY TECHNOLOGIST dexAMETHasone sodium phos (PF) (DECADRON) injection 10 mg, 10 mg, intravenous, Q6H, Richard Prielipp, TEST OPERATOR-SEATING AND MOBILITY TECHNOLOGIST, 10 mg at 11/05/24 0148 dextrose (GLUTOSE) 40 % gel 15 g, 15 g, oral, PRN, Richard Prielipp, TEST OPERATOR-SEATING AND MOBILITY TECHNOLOGIST dextrose 5 % (D5W) infusion, 100 mL/hr, intravenous, Continuous PRN, Richard Prielipp, TEST OPERATOR-SEATING AND MOBILITY TECHNOLOGIST dextrose 50 % in water (D50W) 50% solution 25 mL, 25 mL, intravenous, PRN, Richard Prielipp, TEST OPERATOR-SEATING AND MOBILITY TECHNOLOGIST glucagon HCL injection 1 mg, 1 mg, intramuscular, PRN, Richard Prielipp, TEST OPERATOR-SEATING AND MOBILITY TECHNOLOGIST lactated ringers infusion, 125 mL/hr, intravenous, Continuous, Richard Prielipp, TEST OPERATOR-SEATING AND MOBILITY TECHNOLOGIST, Last Rate: 100 mL/hr at 11/05/24 0141, 100 mL/hr at 11/05/24 0141 levETIRAcetam (KEPPRA) IVPB 1000 mg/100 mL in iso-osmotic sodium chloride (10 mg/mL premix), 1,000 mg, intravenous, Q12H, Richard Prielipp, TEST OPERATOR-SEATING AND MOBILITY TECHNOLOGIST magnesium sulfate IVPB 2000 mg/50 mL in iso-osmotic water (40 mg/mL premix), 2,000 mg, intravenous,PRN OR magnesium sulfate IVPB 4000 mg/100 mL in iso- osmotic water (40 mg/mL premix), 4,000 mg, intravenous, PRN, Richard Prielipp, TEST OPERATOR-SEATING AND MOBILITY TECHNOLOGIST [START ON 11/06/2024] metroNIDAZOLE (FLAGYL) IVPB 500 mg/100 mL in iso-osmotic sodium chloride (5 mg/mL premix), 500 mg, intravenous, Q12H, Richard Prielipp, TEST OPERATOR-SEATING AND MOBILITY TECHNOLOGIST potassium chloride (K-TAB,KLOR-CON) CR tablet 20-50 mEq, 20-50 mEq, oral, PRN OR potassium chloride (KAYCIEL) 20 mEq/15 mL solution 20-50 mEq, 20-50 mEq, oral, PRN, Richard Prielipp, TEST OPERATOR-SEATING AND MOBILITY TECHNOLOGIST potassium chloride IVPB 10 mEq/50 mL in water (0.2 mEq/mL premix), 10 mEq, intravenous, PRN OR potassium chloride IVPB 10 mEq/100 mL in water (0.1 mEq/mL premix), 10 mEq, intravenous, PRN, Richard Prielipp, TEST OPERATOR-SEATING AND MOBILITY TECHNOLOGIST sodium phosphate 20 mmol in sodium chloride 0.9 % 250 mL IVPB, 20 mmol, intravenous, PRN OR sodium phosphate 20 mmol in sodium chloride 0.9 % 100 mL IVPB, 20 mmol, intravenous, PRN OR sod phos di, mono-K phos mono (K-PHOS NEUTRAL) 250 mg tablet 2 tablet, 2 tablet, oral, PRN, Richard Prielipp, TEST OPERATOR-SEATING AND MOBILITY TECHNOLOGIST sodium chloride 0.9 % infusion, 10 mL/hr, intravenous, Continuous PRN, Richard Prielipp, TEST OPERATOR-SEATING AND MOBILITY TECHNOLOGIST sodium chloride 0.9 % infusion, 10 mL/hr, intravenous, Continuous PRN, Richard Prielipp, TEST OPERATOR-SEATING AND MOBILITY TECHNOLOGIST sodium chloride 0.9 % infusion, 10 mL/hr, intravenous, Continuous PRN, Richard Prielipp, TEST OPERATOR-SEATING AND MOBILITY TECHNOLOGIST vancomycin (VANCOCIN) IVPB Dosed by Levels, , intravenous, Dosed by Levels, Richard Prielipp, TEST OPERATOR-SEATING AND MOBILITY TECHNOLOGIST Allergies: No Known Allergies Complete Review of [...] patient was able to follow simple commands intermittentlywhen repeated stimuli it was given. Limited examination [...] of esophagitis. No high-grade transition point to suggestobstruction. Finalized by Rohit Villarreal MD on 11/04/2024 8:[address] brain without contrast Result Date: 11/04/2024 Narrative: EXAM:CT BRAIN WO CONT INDICATION: Seizure disorder, clinical change COMPARISON: 12/27/2023 TECHNIQUE: Standard noncontrast axial CT sections through the head. All CT scans at this facility use dose modulation, iterative reconstruction, and/or weight based dosing when appropriate to reduceradiation dose to as low as reasonably achievable. FINDINGS: Brain Parenchyma: No acute hemorrhage,cerebral edema, or acute cortical infarction. No mass [...] Lamictal as patient was potentially experiencing a drug- induced rash at home3 days prior to admission Follow up on video EEG monitoring Recommend consulting interventional radiology for lumbar puncture Follow up on CSF studies Neurology consult service will continue to follow Rest of care per primary Discussed with Dr. Skelton Signed by Nathalie Mooney MD Neurology Resident, [facility] Please contact via secure chat Staffed with: Dr. Skelton This patient is being followed by the Neurology Resident service. Contact attending directly during these hours: Thursday to 7:30-8:30 A.M. to Thursday 12-1:00 p.m. Primary Neurology service: [phone] Consult neurology service: [phone] Resident Stroke Service: [phone] If the patient belongs to the Stroke [...] per excellent resident note. Robin Skelton MD [facility] of Neurology [facility] 11/05/24 documented in this encounterAdena [facility]02-01-[facility] History and physical note* Richard Ernandez APRN-SEATING AND MOBILITY TECHNOLOGIST - 11/05/2024 1:38 AM EST CRITICAL CARE HISTORY & PHYSICAL Name: Yolanda [...] records and medical staff as she is currentlylethargic and unable to contribute to the history. No family is present currently. Records indicateshe had stopped taking 1 of her antiepileptic medications for 3 days as she felt this may have beenthe cause of a skin rash she had experienced. She was febrile upon evaluation in the ER with associated tachycardia and tachypnea. Laboratory evaluation was remarkable for WBC 40, 5% bands, sodium 130, potassium 2.8, bicarbonate 19, BUN 27, creatinine 1.8, calcium 8.2, AST 356, ALT 122, magnesium 2.8, CK 26,000, procalcitonin 40, rapid lactate2.9. COVID and flu swab was negative. Ethanol was negative. CT scan of the brain without contrast was negative for acute intracranial abnormalities. CT scan of the abdomen and pelvis without contrastwas suggestive of potential colitis/enteritis. Chest x-ray was negative for acute cardiopulmonary process. She was initiated on empiric antimicrobial therapy for the possibility of meningitis with cefepime and vancomycin. She also received a dose of Decadron. [facility] Keppra was resumed after discussion with the Neurology team. She received 2 L normal saline bolus. She has now been transferred to [facility] for ongoing management. She is currently sleepy buteasily arousable. She does answer simple questions at times with prompting and follows commands. She has been confused and slightly agitated at times pulling at her lines/tubes. She is hemodynamically stable at this time and has not required vasopressor support.. Past Medical History: Diagnosis Date Anxiety March 2013 Depression March 2013 Eczema 2009 GERD (gastroesophageal reflux disease) Seizures ([facility]) Visual impairment 2004 Past Surgical History: Procedure Laterality Date COLONOSCOPY N/A 04/10/2023 Performed by Joey Stacy MD at [facility] ESOPHAGOGASTRODUODENOSCOPY N/A 04/10/2023 Performed by Joey Stacy MD at [facility] Review of Systems - unable to obtain as she is lethargic and unable to contribute to the history atthis time Medications Prior to Admission Medication Sig Dispense Refill Last Dose/Taking cariprazine (VRAYLAR) 1.5 mg capsule Take 1 capsule (1.5 mg total) by mouth in the morning. cyclobenzaprine (FLEXERIL) 10 mg tablet Take 1 tablet (10 mg total) by mouth 2 (two) times a day asneeded for muscle spasms. (Patient not taking: Reported on 09/12/2024) 10 tablet 0 hydrOXYzine (VistariL) 25 mg capsule Take 1 capsule (25 mg total) by mouth 3 (three) times a day asneeded for anxiety. Max 3 per day (Patient [...] Procedure Component Value Units Date/Time Urine culture [[id number]] Resulted: 11/04/242304 Specimen: Urine Updated: 11/04/242305 SARS/FLU A+B/RSV by NAAT/Molecular (M4RT Collection Tube) [[id number]] Collected: 11/04/241912 Specimen: Nasopharynx Updated: 11/04/242005 FLU A PCR Negative FLU B PCR Negative RSV by PCR Negative SARS CoV 2 BY PCR Not Detected Blood culture [[id number]] Collected: 11/04/241758 Specimen: Blood, Peripheral Draw Updated: 11/04/241828 Blood culture [[id number]] Collected: 11/04/241758 Specimen: Blood, Peripheral Draw Updated: 11/04/241828 ASSESSMENT: Severe sepsis with multiorgan dysfunction noted. Significant leukocytosis and elevated procalcitonin noted. Source not entirely clear at this time. Note concern for potential DATA TRANSCRIBER infection/meningitis. Chest x-ray without acute process. UA does not appear grossly infected. CT abdomen and pelvis with potential colitis. Altered mental status, possibly toxic/metabolic in etiology vs seizure related / post ictal. Lumbarpuncture attempted unsuccessfully at the outside hospital. Will need further workup for potential DATA TRANSCRIBER infection. Seizure disorder with breakthrough seizures and recent medication noncompliance. Acute kidney injury possibly due to prerenal etiology/low perfusion vs myoglobinuric renal failure.Remains nonoliguric. No evidence of obstruction on CT [...] titration of care by a Critical Care Breakfast Bar Attendant. Failure to do so may result in further organ system failure, imminent deterioration, or . VIJAYA Hung 11/05/24 0209 Cosigned by Esau Vincent MD at 11/05/2024 2:33 AM EST documented in this encounterGifford Medical CenterPowerUp Toys [id number] Miscellaneous Notes* Telephone Encounter - Cherry Llamas - 11/02/2024 9:32 AM EST Medication Name:levETIRAcetam (KEPPRA) 750 mg tablet Frequency/Dose: 750mg twice daily Side Effects: Patient stated that they have a skin rash on arms and torso and face When did the side effects begin:1 1/2 weeks ago Last dose: 11/02/24 AM dose Received call from: Patient Callback number:[phone] * Telephone Encounter - Megha Bragg MD - 11/02/2024 9:32 AM EST I believe the patient is also taking Lamictal. I believe she was instructed to increase the dose ofLamictal after being discharged from the hospital in September 2024. I would recommend that she stoptaking the Lamictal right away, as it can [...] for now. Let me know about further conc erns. Thanks * Telephone Encounter - Soco Granados RN - 11/02/2024 9:32 AM EST Called and spoke to patient and let her know recommendations/ information from Dr. Bragg about thelamictal and her rash. She stated that she had been taking the Lamictal for a while now and just recently increased the dose to twice a day. [employer] Bi Developer informed patient would send message to Dr. Bragg about the Lamictal and see what he says. Did also inform her that he was out of the office but was answering things. She voiced understanding. Also told her about going to the ED to have the rash be evaluated and make sure it is not [place]-Gab syndrome. She voiced understanding. * Telephone Encounter - Megha Bragg MD - 11/02/2024 9:32 AM EST Yes that is correct, I want her to stop taking the Lamictal and just continue the Keppra for seizure prophylaxis. The risk of dermatological complications such as [place]-Gab syndrom is a dose dependent phenomenon associated with lamotrigine/Lamictal usage. Typically the rash develops as the dose of Lamictal is increased. * Telephone Encounter - Cherry Llamas - 11/02/2024 9:32 AM EST Zabrina STUBBS RN [facility] [phone] (ER direct line) has requested a call back. Caller stated that patient is currently at ER and department has a few questions to ask Dr. Bragg. Provider'spager does not seem to be working. * Telephone Encounter - oSco Granados RN - 11/02/2024 9:32 AM EST Tried to call Zabrina back to see if there were any specific questions. Spoke to Debby and she stated that Zabrina wasn't in yet and the patient was probably gone already as it was an emergency room . Attempted to call patient and got VM. Left message for patient to call office back. documented in this encounterGifford Medical CenterAevi Inc.01-29-2025 Telephone encounter Note* Telephone Encounter - Cherry Llamas - 11/02/2024 9:32 AM EST Medication Name:levETIRAcetam (KEPPRA) 750 mg tablet Frequency/Dose: 750mg twice daily Side Effects: Patient stated that they have a skin rash on arms and torso and face When did the side effects begin:1 1/2 weeks ago Last dose: 11/02/24 AM dose Received call from: Patient Callback number:[phone] [employer]01-29-2025 Telephone encounter Note* Telephone Encounter - Megha Bragg MD - 11/02/2024 9:32 AM EST I believe the patient is also taking Lamictal. I believe she was instructed to increase the dose ofLamictal after being discharged from the hospital in September 2024. I would recommend that she stoptaking the Lamictal right away, as it can [...] for now. Let me know about further conc erns. Thanks [employer] Work Phone: 1([phone] 358-207101-29-2025 Telephone encounter Note* Telephone Encounter - Soco Granados RN - 11/02/2024 9:32 AM EST Called and spoke to patient and let her know recommendations/ information from Dr. Bragg about thelamictal and her rash. She stated that she had been taking the Lamictal for a while now and just recently increased the dose to twice a day. [employer] Developer informed patient would send message to Dr. Bragg about the Lamictal and see what he says. Did also inform her that he was out of the office but was answering things. She voiced understanding. Also told her about going to the ED to have the rash be evaluated and make sure it is not [place]-Gab syndrome. She voiced understanding. [email or web address] [id number] Telephone encounter Note* Telephone Encounter - Megha Bragg MD - 11/02/2024 9:32 AM EST Yes that is correct, I want her to stop taking the Lamictal and just continue the Keppra for seizure prophylaxis. The risk of dermatological complications such as [place]-Gab syndrom is a dose dependent phenomenon associated with lamotrigine/Lamictal usage. Typically the rash develops as the dose of Lamictal is increased. [facility] [employer] [id number] Telephone encounter Note* Telephone Encounter - Cherry Llamas - 11/02/2024 9:32 AM EST Zabrina STUBBS RN [facility] [phone] (ER direct line) has requested a call back. Caller stated that patient is currently at ER and department has a few questions to ask Dr. Bragg. Provider'spager does not seem to be working. [facility] [employer] [id number] Telephone encounter Note* Telephone Encounter - Soco Granados RN - 11/02/2024 9:32 AM EST Tried to call Zabrina back to see if there were any specific questions. Spoke to Debby and she stated that Zabrina wasn't in yet and the patient was probably gone already as it was an emergency room . Attempted to call patient and got VM. Left message for patient to call office back. [facility] Vast10-08-2024 History of Present illness Narrative* Megha Bragg MD - 07/12/2024 4:00 PM EDT Images from the original note were not included. [address] [place] [address] Patient: Yolanda Villanueva Date of : 2000 [...] clinic by . Was last seen in clinicon 01/29/2024. Summary of Condition: The patient is [...] a suicide attempt. Also history of previous suicidalattempts. - has continued to have nocturnal convulsions. [...] the same time it seems she was havinglower facial twitching however only the lips seemed to be involved, almost pouting, with alternative twitching noticed of both angles of the mouth, with variable rhythmicity. There were no abnormal movements of the eyes appreciated, her eyes being semi open throughout the episode. The convulsions lasted out 1.5 minutes at the end of fish the twitches seemed to slow down and eventually stopped. Atthat time the patient appeared to be resting [...] however the patient reports she did bite hertongue a few times. Last nocturnal convulsion was [...] to display PTSD: No data to display Sevier: No data to display JEVON-10: No data [...] Eczema 2009 GERD (gastroesophageal reflux disease) Seizures ([facility]) Visual impairment 2004 Family History Problem Relation Age of Onset Kidney disease Father Miscarriages / Stillbirths Sister Lung cancer Maternal Grandmother Throat cancer Paternal great-grandmother Past Surgical History: Procedure Laterality Date COLONOSCOPY N/A 04/10/2023 Performed by Joey Stacy MD at [facility] ESOPHAGOGASTRODUODENOSCOPY N/A 04/10/2023 Performed by Joey Stacy MD at [facility] Current Outpatient Medications Medication Sig Dispense Refill [...] times a day asneeded for muscle spasms. (Patient not taking: Reported on 07/12/2024) 10 tablet 0 hydrOXYzine (VistariL) 25 mg capsule Take 1 capsule (25 mg total) by mouth 3 (three) times a day asneeded for anxiety. Max 3 per day (Patient [...] span and concentration. Able to provide good history.Appears anxious, mild psychomotor agitation Cranial nerves: II: [...] touch is bilaterally symmetric and normal. Coordination: Saptwn-ehbn-ardtxr and dhbj-impl-qwso tests are normal. No dysdiadochokinesia on rapid [...] all orders for this visit: Breakthrough seizure ([facility]) - Crew Trainer Monitoring for Epilepsy / LTME 5 Day; Future Gastroesophageal reflux disease, unspecified whether esophagitis present Seizure disorder ([facility]) - Senior Living Monitoring for Epilepsy / LTME 5 Day; [...] a suicide attempt. Also history of previous suicidalattempts. - has continued to have nocturnal convulsions. [...] the same time it seems she was havinglower facial twitching however only the lips seemed to be involved, almost pouting, with alternative twitching noticed of both angles of the mouth, with variable rhythmicity. There were no abnormal movements of the eyes appreciated, her eyes being semi open throughout the episode. The convulsions lasted out 1.5 minutes at the end of fish the twitches seemed to slow down and eventually stopped. Atthat time the patient appeared to be resting [...] however the patient reports she did bite hertongue a few times. Last nocturnal convulsion was [...] (LaMICtal) 100 mg tablet Other Relevant Orders Senior Living Monitoring for Epilepsy / LTME 5 Day Musculoskeletal and Integument Eczema Other Anxiety Depression Follow-up: 2-3 months Megha Bragg MD Vascular Neurologist [facility] Neurology ([facility]) I have personally participated in the care of this patient. I have reviewed all pertinent clinical information, including history, physical exam, investigation results and plan. I spent 35 minutes caring for this patient, and more than 50% of that time was spent on counseling the patient/legal writing professor/care team and coordinating care. Important Notice: This note was created with the assistance of a speech recognition program. While intending to generate a timely document that accurately reflects the content of the encounter, no guarantee can be provided that every grammatical or spelling mistake has been or will be identified or corrected. Thank you for your understanding. documented in this encounterAdena [facility] Center09-27-2024 History of Present illness Narrative* Kalin Mccann RN - 07/01/2024 6:46 AM EDT Pt currently in [facility] ED. Call requesting pt medical records received. Obtained signed copy of release of medical records form. Requested records faxed to [facility] ED. documented in this encounterAdena Pike Medical Center07-19-2024 Discharge summary Author Donavon rehman [facility] April 22, 2024 7:05amNote Date/TimeJuly 2023 6:[address] [address] Discharge Summary Signed Patient: Yolanda Villanueva MR#: [id number] : 2000 Acct:[id number] Age/Sex: 24 / F Adm Date: 4 Loc: 1S Room: 0O5176-[address]: Obie Harley MD Copies to: [...] Reportedly, patient presented to the ER in [place] after he drove her there. Shehas been trying to become with her and has had 3 miscarriages, with the most recentone occurring back in February. She has had [...] her tried to drive her to the [place] ER. When she realized he was taking her to the hospital, she jumped out of the car and jumpedinto a nearby pond since her can't swim. Her rqresb-ly-boj got a kayak and got her out of the pond. She does not recall the details of this event well since she blacked out shortly after. Patient was personally seen by me on the day of the encounter. I reviewed the history and performedthe fatima elements of the assessment. I formulated the planof care and confirmed this with the resident as noted below Patient presents as depressed. Rates her anxiety as a 2/10, but it was originally an 8/10 before taking meds, and depression as an 8/10. Denies SI, HI and AVH. States she has been seeking out alcoholand drinking whenever she can to cope with [...] therapy services available whileon the unit and wasencouraged to participate. Psychotropic medications targeting mood and anxiety were started, and she was provided supportive and reality-oriented therapy. Her medication regimen was continued and Effexor was increased. Lamictal was added to help with impulse control. She felt that her symptoms haveimproved on the current medication regimen, and she [...] She expresses understanding and says she is betterafter learning coping skills and the medications prescribed [...] the criteria for involuntary psychiatric hospitalization. The patientbenefited fromattending inpatient treatment and was suitable for [...] self harm or thoughts of harm to others,the patient was not to harm them self or stop treatment, but to call [employer], 911 or come to the nearest emergency room. The patient also received information regarding advanced mental and medic al health directives during this hospitalization to discuss [...] to get in treatment, response to treatment, adherenceto treatment recommendations, and using skills. The patient's [...] follow-up, preferably within seven days of release, involvingsupportive family/friends in her care, and her desire [...] future-oriented and understands the importance of outpatient follow-up.Psychiatric experts agree that predicting suicide is impossible, but considering positive factors like family and sonja, lack of access to firearms, and desire to continue treatment makes her currentsuicide risk minimal. Given the chronicity of suicidality, we discussed measures to help her with long-term safety. The patient is not suicidal or psychotic now. To help decreaseher suicide risk, as best I can, I am referring her for outpatient treatment andCBT for long-term follow-up to have somewhere to go and someoneto manage her assymptoms and stressors develop. This is the best way to keep her alive. So, we discussed a crisis plan for future suicidality: at the first sign of distress, she will call the hotline; if this is not sufficient, she will 911, then call family members or friends; ultimately, she willcome to the ER. Violence Risk Assessment: Chronic: Gender: lower than males Modifiable: good response to treatment, good therapeutic alliance, availability of local mental health services and willingness to follow up, lack of homicidal ideation (intent or plan) on the day ofdischarge and during hospitalization, lack of substance abuse, [...] medications. Patient indicates an understanding that benefits o utweigh the risks. Continue supportive therapy with some CBT techniques. Psycho-education and compliance counseling were provided. She denies current and is aware to notify her psychiatrist if she becomes due tothe risk of harm to the fetus. Avoid [...] Instructions: Important Contact Information You can call [facility] at [phone] any timeday or night if you have emergent questions or question regarding discharge instructions. If at anytime you are feeling an increase inyour psychiatric symptoms, call your physician or behavioral healthcare provider. If any time you have thoughts of harming yourself or others contact one of the following: Call 8 (available 27/04) Crisis Text Line (available 27/04) text 4HOPE to [phone] [facility] Hope Line (available 8 a.m. Midnight) call [phone] ([phone]) Instructions: Know your Meds Prescriptions: New venlafaxine [...] 24hr 37.5 mg PO DAILY Follow Up: [facility] [Outside] Ottoniel Arias MD [Primary Care Provider] - Exam Physical Exam Vital Signs: Temp Pulse Resp BP Pulse Ox O2 Del Method 98.6 F 87 16 136/85 98 Room Air 04/21/24 19:30 04/21/24 19:30 04/21/24 19:30 04/21/24 19:30 04/21/24 19:30 04/21/24 19:30 Documented By: Donavon Montalvo MD 4 0657 Signed By: <Electronically signed by Donavon Montalvo MD> 04/22/24 0705 [facility] Work Phone: 1(306) 222-181507-18-2024 Progress note Author Donavon rehman [facility] April 21, 2024 7:17amNote Date/TimeJuly 2023 7:[place] [address] Psychiatry Progress Note Signed Patient: Yolanda Villanueva MR#: [id number] : 2000 Acct:[id number] Age/Sex: 24 / F Adm Date: 4 Loc: Room: [address] [place] [address] Type : ADM IN Attending Dr: Obie [...] is visible within the unit milieu. She hasbeen working with family preservation caseworker on her aftercare she agreed to continue the current medications regimen. She understands risks, benefits, and indications of current medication regimen. She presented as future oriented, participated in group activities, articulatedneeds appropriately,and displayed no self-harm behaviors. Imminent risk is [...] At the time of discharge, the patient understoodthe importance of continued outpatient treatment and medication adherence. The patient voiced understanding of the discharge plan discussed with the treatment team. At time of discharge with reasonable degree of medical certainty, the patient manifesteda low risk of acute harm to self or others irene low-moderate chronic risk, evidenced by the psychiatric history and the subjective and objective c ondition at that time. Patient denies any active [...] Gab Syndrome. The patient was advised to stoplamotrigine and visit the ER for any rash [...] Thursday Documented By: Donavon Montalvo MD 4 16 Signed By: <Electronically signed by Donavon Montalvo MD> 04/21/2417 [facility] Work Phone: 1(804) 165-989107-17-2024 Progress note Author Donavon rehman [facility] April 20, 2024 8:25amNote Date/TimeJuly 2023 8:24[place] [address] Psychiatry Progress Note Signed Patient: Yolanda Villanueva MR#: [id number] : 2000 Acct:[id number] Age/Sex: 24 / F Adm Date: 4 Loc: Room: [address] [place] [address] Type : ADM IN Attending Dr: Obie Harley MD Copies to: ~ Date of Service: 04/20/2024 Subjective Subjective Narrative: Pt states she feels much better today. She said increasing the dose of Effexor is helping with depression. Anxiety is less compared to the time of admission. Rates anxiety as a 3/10 and depression asa 3/10. Denies SI, HI and AVH. She [...] that occurs while taking lamotrigine. The patient wasalso advised about the importance of being compliant with the mediation. The patient verbalized understanding. Continue Librium 10 mg BID Continue Paxil 40 mg daily Continue folic acid 1 mg daily Encourage group and psychoeducational participation Monitor mental status Consider for possible discharge on or Thursday Documented By: Donavon Montalvo MD 4 0821 Signed By: <Electronically signed by Donavon Montalvo MD> 04/20/24 0825 [facility] Work Phone: 1(711) 846-711207-16-2024 Progress note Author Donavon rehman [facility] April 19, 2024 12:03pmNote Date/TimeJuly 2023 10:24[place] [address] Psychiatry Progress Note Signed Patient: Yolanda Villanueva MR#: [id number] : 2000 Acct:[id number] Age/Sex: 24 / F Adm Date: 4 Loc: Room: [address] [place] [address] Type : ADM IN Attending Dr: Obie [...] the encounter. I reviewed the history and performedthe fatima elements of the assessment. I formulated [...] signed by Donavon Montalvo MD> 04/19/24 1203 [facility] Work Phone: 1(864) 194-257807-15-2024 History and physical note Author Donavon rehman [facility] April 18, 2024 11:38amNote Date/TimeJuly 2023 10:35[place] [id number] Psychiatry H&P Signed Patient: Yolanda Villanueva MR#: [id number] : 2000 Acct:[id number] Age/Sex: 24 / F Adm Date: 4 Loc: 1S Room: 6C9182-9 Type: ADM IN Attending Dr: Obie Harley MD Copies to: MD Obie Oleary MD Josilyn M Clark, DO, RES Ottoniel Arias MD~ Date of Service: 04/18/2024 HPI History of Present Illness History of present illness: Ms. Villanueva is a 24 year old female who presents for inpatient treatment due to depression and suicidal ideation. Reportedly, patient presented to the ER in [place] after he drove her there. Shehas been trying to become with her and has had 3 miscarriages, with the most recentone occurring back in February. She has had [...] her tried to drive her to the [place] ER. When she realized he was taking her to the hospital, she jumped out of the car and jumpedinto a nearby pond since her can't swim. Her dkepdw-fz-cer got a kayak and got her out of the pond. She does not recall the details of this event well since she blacked out shortly after. Patient was personally seen by me on the day of the encounter. I reviewed the history and performedthe fatima elements of the assessment. I formulated the planof care and confirmed this with the resident as noted below Patient presents as depressed. Rates her anxiety as a 2/10, but it was originally an 8/10 before taking meds, and depression as an 8/10. Denies SI, HI and AVH. States she has been seeking out alcoholand drinking whenever she can to cope with [...] HI and AVH Insight: Fair Judgment: Fair [facility] Medical History (Updated 04/18/24 @ 10:34 [...] overdose, hypo or hypertension, QTC prolongation, rash, movementdisorders (TD, EPS), overdose, weight gain, and appetite [...] 04/18/24 0703 Signed By: <Electronically signed by DO SANTOSH Bush> 04/18/24 1035 <Electronically signed by Donavon Montalvo MD> 04/18/24 1138 [facility] Work Phone: 1(220) 926-818404-26-2024 History of Present illness Narrative* Megha Bragg MD - 01/29/2024 1:30 PM EDT Images from the original note were not included. [address] [place] [address] Patient: Yolanda Villanueva Date of : [...] to display PTSD: No data to display Sevier: No data to display JEVON-10: No data [...] Eczema 2009 GERD (gastroesophageal reflux disease) Seizures ([facility]) Visual impairment 2004 Family History Problem Relation Age of Onset Kidney disease Father Miscarriages / Stillbirths Sister Lung cancer Maternal Grandmother Throat cancer Paternal great-grandmother Past Surgical History: Procedure Laterality Date COLONOSCOPY N/A 04/10/2023 Performed by Joey Stacy MD at [facility] ESOPHAGOGASTRODUODENOSCOPY N/A 04/10/2023 Performed by Joey Stacy MD at [facility] Current Outpatient Medications Medication Sig Dispense Refill [...] touch is bilaterally symmetric and normal. Coordination: Jrobev-pwen-xoytxp and ysyj-kvel-cczt tests are normal. No dysdiadochokinesia on rapid [...] all orders for this visit: Seizure disorder ([facility]) Witnessed seizure-like activity ([facility]) - Ambulatory referral to Neurology ([facility]) Anxiety [...] Follow-up: MD Megha Oates MD Vascular Neurologist [facility] Neurology # [phone]([facility]) I have personally participated in the care of this patient. I have reviewed all pertinent clinical information, including history, physical exam, investigation results and plan. I spent 45 minutes caring for this patient, and more than 50% of that time was spent on counseling the patient/legal writing professor/care team and coordinating care. Important Notice: This note was created with the assistance of a speech recognition program. While intending to generate a timely document that accurately reflects the content of the encounter, no guarantee can be provided that every grammatical or spelling mistake has been or will be identified or corrected. Thank you for your understanding. documented in this encounterGifford Medical CenterPowerUp Toys [id number] Miscellaneous Notes* Telephone Encounter - Kathrin Howard - 12/28/2023 8:48 AM EDT Please ask the following questions to the new patient that you are schedulin. IS THIS DUE TO AN ACCIDENT? - No 2. IS THIS WORKER'S COMP? - No 3. WHAT INSURANCE? - [facility] CHOICE PLUS 4. HAVE YOU EVER BEEN SEEN BY A NEUROLOGIST BEFORE? IF YES, WHO AND WHEN? IS THIS A SECOND OPINION? - No 5. PATIENT IS SCHEDULED ON/WITH: - 01/29/2024 at 1:30pm with Dr. Bragg in [place]. Patient's requested [place] and requestedMD. documented in this encounterAdena [facility]ike [facility] Center03-25-2024 Telephone encounter Note* Telephone Encounter - Kathrin Howard - 12/28/2023 8:48 AM EDT Please ask the following questions to the new patient that you are schedulin. IS THIS DUE TO AN ACCIDENT? - No 2. IS THIS WORKER'S COMP? - No 3. WHAT INSURANCE? - [employer]ICE PLUS 4. HAVE YOU EVER BEEN SEEN BY A NEUROLOGIST BEFORE? IF YES, WHO AND WHEN? IS THIS A SECOND OPINION? - No 5. PATIENT IS SCHEDULED ON/WITH: - 01/29/2024 at 1:30pm with Dr. Bragg in [place]. Patient's requested [place] and requestedMD. [facility]02-20-[facility] History of Present illness Narrative* Ottoniel Arias MD - 11/24/2023 7:45 AM EST Images from the original note were not included. [address] [place] [phone] Patient: Yolanda Villanueva Date of : 2000 [...] Visit via Real-time Synchronous Audiovisual Provider Location: [facility] [address] [place] [phone] Patient Location: Patient's home Video Visit Consent [...] that there are some limitations compared to nmvg-ou-qses evaluations. The patient consented to the presence of additional virtual and/or in-person participants. We elected to proceed. OTTONIEL ARIAS MD Family Medicine Physician [facility] Medicine / [facility] 11/24/23 This note was completed with voice recognition software. The document was reviewed for errors however some may still be present. Please do not hesitate to contact/Epic msg the author to verify any questions/concerns. documented in this encounterThe University of Toledo Medical CenterVerdigris Technologies [facility] [id number] History of Present illness Narrative* Ottoniel Arias MD - 10/08/2023 7:45 AM EST Images from the original note were not included. [address] [place] [phone] Patient: Yolanda Villanueva Date of : 2000 [...] Visit via Real-time Synchronous Audiovisual Provider Location: [facility] [address] [place] [phone] Patient Location: Patient's home Video Visit Consent [...] that there are some limitations compared to qxce-qy-jhel evaluations. The patient consented to the presence of additional virtual and/or in-person participants. We elected to proceed. OTTONIEL ARIAS MD Family Medicine Physician [facility] / [facility] 10/08/23 This note was completed with voice recognition software. The document was reviewed for errors however some may still be present. Please do not hesitate to contact/Epic [facility] the author to verify any questions/concerns. documented in this encounterMarymount Hospital [id number] Evaluation note* Encounter Date Diagnosis Assessment Notes Treatment Notes Treatment Clinical Notes Jul, Nausea and vomiting, unspecified vomiting type (ICD-10 - R11.2) Drink plenty fluids, get plenty of rest. Take the Reglan as prescribed as needed for nausea and vomiting. Follow-up with your GI specialist as soon as possible. Go to the ER for worsening symptoms orconcerns. May return to use work tomorrow. Patient is instructed that she needs to follow-up with GI. Patient verbalizes understanding states she has been having difficulty getting time off work to go to the doctor. Patient declines urinalysis, declines test, denies suspicion of [facility] Other Evaluation note* Diagnosis Onset Date Resolution Status Anxiety acuteDepressionMercy Health [facility] Work Phone: Evaluation note* Diagnosis Seizure (CMS-HCC)- Primary Other convulsions Seizure (CMS-HCC) Other convulsions Non-traumatic rhabdomyolysis Acute renal failure, unspecified acute renal failure type (CMS-HCC) Transaminitis Nonspecific elevation of levels of transaminase or lactic acid dehydrogenase (LDH) Eczema, unspecified type Influenza A H1N1 infection documented in this encounter [facility]* Diagnosis Generalized anxiety disorder documented in this encounter [facility]* Diagnosis Anxiety Anxiety state, unspecified documented in this encounter [facility]* Diagnosis Seizure disorder (CMS-HCC)- Primary Unspecified epilepsy without mention of intractable epilepsy documented in this encounter [facility]* Diagnosis Anxiety Anxiety state, unspecified documented in this encounter [facility]* Diagnosis Anxiety- Primary Anxiety state, unspecified Depression, unspecified depression type documented in this encounter [facility]* Diagnosis Seizure (CMS-HCC)- Primary Other convulsions Muscle cramp Cramp of limb documented in this encounter [facility]* Diagnosis Breakthrough seizure (CMS-HCC)- Primary Gastroesophageal reflux disease, unspecified whether esophagitis present Seizure disorder (CMS-HCC) Unspecified epilepsy without mention of intractable epilepsy Eczema, unspecified type Anxiety Anxiety state, unspecified Depression, unspecified depression type documented in this encounter [facility]* Diagnosis Seizure disorder (CMS-HCC)- Primary Unspecified epilepsy without mention of intractable epilepsy Witnessed seizure-like activity (CMS-HCC) Anxiety Anxiety state, unspecified Gastroesophageal reflux disease, unspecified whether esophagitis present Depression, unspecified depression type Eczema, unspecified type Seizure disorder (CMS-HCC) Unspecified epilepsy without mention of intractable epilepsy documented in this encounter [facility]* Diagnosis Seizure disorder (CMS-HCC)- Primary Unspecified epilepsy without mention of intractable epilepsy Focal epilepsy (CMS-HCC) Acute kidney injury (CMS-HCC) Eczema of right hand documented in this encounter [facility]* Diagnosis Seizure disorder (CMS-HCC)- Primary Unspecified epilepsy without mention of intractable epilepsy documented in this encounter [facility]* Diagnosis Seizure disorder (CMS-HCC)- Primary Unspecified epilepsy without mention of intractable epilepsy Breakthrough seizure (CMS-HCC) [facility]* Diagnosis Cannabinoid hyperemesis syndrome- Primary Nausea and vomiting, unspecified vomiting type Cannabinoid hyperemesis syndrome Hypokalemia Hypopotassemia Dehydration RAKESH (acute kidney injury) Acute kidney failure, unspecified Seizures (HCC) Other convulsions [facility] in this [facility] [place] [facility]* Diagnosis Seizure disorder (CMS-HCC)- Primary Unspecified epilepsy without mention of intractable epilepsy Breakthrough seizure (CMS-HCC) Cannabinoid hyperemesis syndrome documented in this [facility]* Diagnosis Nausea and vomiting, unspecified vomiting type- Primary Hypokalemia Hypopotassemia RAKESH (acute kidney injury) Seizure disorder (CMS-HCC) Unspecified epilepsy without mention of intractable epilepsy Hospital discharge follow-up Other follow-up examination documented in this encounter [facility]* Diagnosis Cannabis hyperemesis syndrome concurrent with and due to cannabis abuse (HCC)- Primary documented in this encounter [facility] note* Diagnosis Cannabis hyperemesis syndrome concurrent with and due to cannabis abuse (HCC)- Primary Positive test examination or test, positive result documented in this encounter [facility] noteNo assessment information available [facility] Work Phone: Evaluation note* Diagnosis Missed documented in this encounter [facility] general Narrative - Reported* Type Description Date Medical History Hiatal hernia Medical HistoryulcersSurgical Historydouble [id number] [facility] Other Hospital Discharge instructionsNot on filedocumented in this [facility]* Attachments The following attachments cannot be sent through Care Everywhere. * Substance Use Disorder (Colombian) * Drug Use: Marijuana (Colombian) [facility] documented in this encounterPro[facility] SystemInstructionsNot on file documented in this encounterPro[facility] SystemInstructionsNot on file documented in this encounterProPromed[facility] SystemInstructionsNot on file documented in this encounterProPromedica [facility] SystemInstructionsNot on file documented in this encounterProPromedica [facility] SystemInstructionsNot on file documented in this encounterPro[facility] Health SystemInstructionsNot on file documented in this encounterProPromed[facility] SystemInstructionsNot on file documented in this encounterProPromedica [facility] SystemInstructionsNot on file documented in this encounterProPromed[facility] SystemInstructions* Attachments The following attachments cannot be sent through Care Everywhere. * Acute kidney injury (Colombian) documented in this encounterProProm[facility] SystemInstructionsNot on file documented in this encounterProPromed[facility] SystemInstructionsNot on file documented in this encounterProPromed[facility] SystemInstructionsNot on file documented in this encounterProPromed[facility] SystemReason for referral (narrative)No reason for referral information [facility] Work Phone: Reason for visit Narrative* Auth/CertSpecialty Diagnoses / ProceduresReferred By ContactReferred To Contact Diagnoses Sepsis Marie Singh, DO [address] [address] Phone: tel: fax: Referral IDStatusReasonStart DateExpiration DateVisits RequestedVisits [id number] [facility] Summary Purpose Family History No Family History Records Found Relationship Condition Age at Onset Recorded Date/T mary Not Specified No pertinent family history Unknown Advance Directives No Advanced Directives Records Found Advance Directive Response Recorded Date/ Time Advance Directives No April 17 4:25pm Date ActivatedDate InactivatedComments11/05/2024 1:14 AMDate ActivatedDate InactivatedComments11/05/2024 1:14 AM11/12/2024 4:46 PMDate ActivatedDate InactivatedComments11/05/2024 1:14 AM11/12/2024 4:46 PMDate ActivatedDate InactivatedComments04/25/2025 4:42 PMDate ActivatedDate InactivatedComments 04/25/2025 4:42 PM04/26/2025 6:58 PM Chief Complaint and Reason for Visit Chief Complaint MDD MDDReason for VisitAnxiety Depression Chief Complaint Admit Date bh May 30, 2025 3: 23pm Unknown June 26, 2025 3:24pm Reason for Referral SpecialtyDiagnoses / ProceduresReferred By ContactReferred To Contact Diagnoses Seizure disorder ([facility]) Procedures Sleep Deprived EEG Megha Bragg MD [address] [place] [address], [address] [place] [address] [facility] [address] [place] [address] Phone: [phone] Referral IDStatusReasonStart DateExpiration DateVisits RequestedVisits [id number] / ProceduresReferred By ContactReferred To Contact Diagnoses Breakthrough seizure ([facility]) Seizure disorder ([facility]) Procedures Senior Living Monitoring for Epilepsy / LTME 5 Day Megha Bragg MD [address] [place] [address], [address] [place] [address] Referral IDStatusReasonStart DateExpiration DateVisits RequestedVisits [id number] Additional Source Comments INFORMATION SOURCE (unrecogn ized section and content) DATE CREATED AUTHOR 10/01/2022 [facility] DATE CREATED AUTHOR AUTHOR'S ORGANIZ ATION 01/21/2024 [facility] DATE CREATED AUTHOR AUTHOR'S ORGANIZ ATION 02/04/2024 [facility] DATE CREATED AUTHOR AUTHOR'S ORGANIZ ATION 11/14/2024 [facility] DATE CREATED AUTHOR AUTHOR'S ORGANIZ ATION 06/23/2025 [facility] DATE CREATED AUTHOR AUTHOR'S ORGANIZ ATION 07/09/2025 [facility] DATE CREATED AUTHOR AUTHOR'S ORGANIZ ATION 07/19/2025 [facility] DATE CREATED AUTHOR AUTHOR'S ORGANIZ ATION 07/28/2025 [facility] DATE CREATED AUTHOR AUTHOR'S ORGANIZ ATION 08/16/2025 [facility] REASON FOR VISIT (unrecogniz ed section and content) ReasonOnset DateCommentslevETIRAcetam (KEPPRA) 750 mg sukxqm7811/02/2024Reason CommentsAnxietyReasonOnset DateCommentsMed Yuzexg03/06/2024ReasonOnset Date CommentsMed [id number] ProblemAnxiety medications not workingReasonOnset DateCommentsNew Patient Appt.4ReasonComments Follow-upPatient presents for follow up for seizuresReasonCommentsNew Patient Patient is here today as a new patient for Dx of Witnessed seizure-like activity SpecialtyDiagnoses / ProceduresReferred By ContactReferred To ContactNeurology Diagnoses Witnessed seizure-like activity ([facility]) Samantha Keyes, TEST OPERATOR-SEATING AND MOBILITY TECHNOLOGIST [address] [place] [address] Megha Bragg MD [address] [place] [address] [place] [address] Referral IDStatusReasonStart DateExpiration DateVisits RequestedVisits [id number] Review Specialty Services Required /[id number] DateCommentsTransition Of Care11/15/2024ReasonOnset DateComments12/20/24 MAHSA [id number]/04/2025Reason CommentsSeizuresPatient is here today for follow up on dx: Breakthrough seizure. ReasonCommentsFollow-upPatient is here today for follow up on dx: Seizure disorder.ReasonCommentsNauseaPt c/o nausea for the past 10 days and unable to keep anything down. Generalized abdominal pain starting just prior to the n/v. Chills.SpecialtyDiagnoses / ProceduresReferred By ContactReferred To Contact Diagnoses Dehydration Hypokalemia Cannabinoid hyperemesis syndrome Nausea and vomiting, unspecified vomiting type Triny Dumas MD [address] [facility] [address] [place] [address] Phone: tel: fax: [facility] [id number] [place] [address] Referral IDStatusReasonStart DateExpiration DateVisits RequestedVisits [id number] is here today for follow up on dx Seizure disorder.ReasonCommentsFollow-upReasonCommentsVomitingComplains of vomiting for 3 days, reports having this before do to marijuana use.Reason CommentsAbdominal PainPatient presents to the emergency department with complaint of bilateral lower abdominal discomfortwith nausea vomiting diarrhea for the past 2 days Care Teams (unrecognized sec tion and content) Team Status: Active Member Role Status Dates Ottoniel Arias MD Primary Care Provider Active Team Status: Inactive Member Role Status Dates Ottoniel Arias MD Primary Care Provider Active S tart: April 17, 2024 End: April 22deMagda Gray Provider, Attending ProviderActive Start: April 17, 2024 End: April 22, 2024 Team Status: Active Member Role Status Dates Ottoniel Arias MD Primary Care Provider Active S tart: April 20, 2024 Magda Rosales Provider, Other ProviderActiveStart: April 20, 2024 Cain Oleary ProviderActiveStart: April 20, 2024 Team MemberRelationshipSpecialtyStart DateEnd Date Ottoniel Arias MD [address] [place] [address] PCP - GeneralInternal Medicine01/06/24Team MemberRelationshipSpecialtyStart Date End Date Ottoniel Arias MD [address] [place] [address] PCP - GeneralInternal Medicine11/04/24Team MemberRelationshipSpecialtyStart Date End Date Ottoniel Arias MD [address] [place] [address] PCP - GeneralInternal Medicine04/10/23Team MemberRelationshipSpecialtyStart Date End Date Ottoniel Arias MD [address], [place] [address] PCP - GeneralInternal [facility]01/06/24Team MemberRelationshipSpecialtyStart Date End Date Ottoniel Arias MD [address], [place] [address] PCP - GeneralInternal [facility]11/04/24Team MemberRelationshipSpecialtyStart Date End Date Ottoniel Arias MD [address], [place] [address] [facility]01/06/24Team MemberRelationshipSpecialtyStart Date End Date Ottoniel Arias MD [address], [place] [address] PCP - GeneralBannernal Medicine04/10/23Team MemberRelationshipSpecialtyStart Date End Date Ottoniel Arias MD [address], [place] [address] PCP - GeneralInternal Medicine04/10/23Team MemberRelationshipSpecialtyStart Date End Date Ottoniel Arias MD [address], [place] [address] [facility]01/06/24Team MemberRelationshipSpecialtyStart Date End Date Ottoniel Arias MD [address], [place] [address] PCP - GeneralInternal Medicine01/06/24Team MemberRelationshipSpecialtyStart Date End Date Ottoniel Arias MD [address], [place] [address] PCP - GeneralInternal Medicine01/06/24Team MemberRelationshipSpecialtyStart Date End Date Ottoniel Arias MD [address], [place] [address] PCP - GeneralInternal Medicine11/04/24Team MemberRelationshipSpecialtyStart Date End Date Ottoniel Arias MD [address], [place] [address] PCP - GeneralBannernal Medicine11/04/24Team MemberRelationshipSpecialtyStart Date End Date Ottoniel Arias MD [address], [place] [address] PCP - GeneralInternal Medicine11/04/24Team MemberRelationshipSpecialtyStart Date End Date Ottoniel Arias MD [address], [place] [address] PCP - GeneralInternal Medicine11/04/24Team MemberRelationshipSpecialtyStart Date End Date Ottoniel Arias ND [address], [place] [address] [facility] - [facility]04/25/25Team MemberRelationshipSpecialtyStart DateEnd Date Ottoniel Arias MD [address], [place] [address] PCP - [facility]11/04/24Team MemberRelationshipSpecialtyStart Date End Date Ottoniel Arias MD [address], [place] [address] PCP - [facility]11/04/24Team MemberRelationshipSpecialtyStart Date End Date Ottoniel Arias ND [address], [place] [address] [facility]04/25/25Team MemberRelationshipSpecialtyStart DateEnd Date Ottoniel Arias MD [address], [place] [address] [facility]11/04/24Team MemberRelationshipSpecialtyStart Date End Date Ottoniel Arias ND [address], [place] [address] PCP - [facility]04/25/25 Team Status: Active Member Role Status Dates Ottoniel Arias MD Primary Care Provider Active S tart: May 30, 2025 Donavon Montalvo MDAttjayshree ProviderActiveStart: May 30, 2025 Team Status: Inactive Member Role Status Dates Francisco Chaidez PA-C Attending Provider Active St art: June 26, 2025 End: June 26, 2025Team MemberRelationshipSpecialtyStart DateEnd Date Ottoniel Arias ND [address], [place] [address] PCP - GeneralFamily Medicine04/25/25 Scheduled Active and Recently Administ ered Medications (unrecognized section and content) Medication Order amLODIPine (NORVASC) tablet 5 mg (CANCELED) 5 mg, oral, Daily, First dose on Thu11/09/24 at 1100, Look-alike/sound-alike medication - verify indication for use. Avoid grapefruit juice. * 0845 (Given - Provider: Anahi Astudillo RN) * 0833 (Given - Provider: Samantha Oliver, PAMELA) * 0908 (Given - Provider: Yadira Vigil RN) ammonium lactate (AMLACTIN) 12 % cream 1 Application 1 Application, topical, 2 times daily, First dose on Thu11/11/24 at 1015, Apply to Site of rash. * 1115 (Given - Provider: Samantha Oliver RN) * 2219 (Given - Provider: Sam Jane RN) * 0900 (Not Given - Provider: Yadira Vigil RN - Reason: Patient/family refused) * 2100 (Due) ARIPiprazole (ABILIFY) tablet 2 mg 2 mg, oral, Daily, First dose on Thu11/10/24 at 0900, Look-alike/sound-alike medication - verify indication for use. * 1136 (Given - Provider: Anahi Astudillo RN) * 0833 (Given - Provider: Samantha Oliver, PAMELA) * 0908 (Given - Provider: Yadira Vigil, PAMELA) diphenhydrAMINE (BENADRYL) injection 25 mg (COMPLETED) 25 mg, intravenous, Once, On Thu11/11/24 at 1015, For 1 dose, Look-alike/sound-alike medication - verify indication for use. * 1115 (Given - Provider: Samantha Oliver RN) heparin (porcine) injection 5,000 Units 5,000 Units, subcutaneous, Every 12 hours scheduled, First dose on Thu11/05/24 at 0900, Look-alike/sound-alike medication - verify indication for use. Observe for bleeding. * 0900 (Not Given - Provider: Anahi Astudillo RN - Reason: Patient/family refused) * 2100 (Not Given - Provider: Sam Jane RN - Reason: Patient/family refused) * 0900 (Not Given - Provider: Samantha Oliver RN - Reason: Patient/family refused) * 2218 (Given - Provider: Sam Jane RN) * 0908 (Given - Provider: Yadira Vigil RN) * 2100 (Due) lacosamide (VIMPAT) tablet 100 mg 100 mg, oral, 2 times daily, First dose on Thu11/07/24 at 2100, Swallow tablets whole; do not divide. * 0845 (Given - Provider: Anahi Astudillo, RN) * 2112 (Given - Provider: Sam Jane, PAMELA) * 0832 (Given - Provider: Samantha Oliver, PAMELA) * 2217 (Given - Provider: Sam Jane, PAMELA) * 0908 (Given - Provider: Yadira Vigil RN) * 2100 (Due) levETIRAcetam (KEPPRA) tablet 500 mg 500 mg, oral, 2 times daily, First dose on Thu11/07/24 at 1800, Look-alike/sound-alike medication - verify indication for use. * 0844 (Given - Provider: Anahi Astudillo, PAMELA) * 2123 (Given - Provider: Sam Jane, PAMELA) * 0833 (Given - Provider: Samantha Oliver, PAMELA) * 2218 (Given - Provider: aSm Jane, PAMELA) * 0908 (Given - Provider: Yadira Vigil, RN) * 2100 (Due) magnesium sulfate IVPB 4000 mg/100 mL in iso-osmotic water (40 mg/mL premix) (COMPLETED) 4,000 mg, intravenous, at 25 mL/hr, Administer over 240 Minutes, Once, On 11/12/24 at 1000, For 1dose * 1019 (New Bag - Provider: Yadira Vigil, RN) * 1329 (Stop Bag - Provider: Yadira Vigil RN) nicotine (NICODERM CQ) 14 mg/24 hr 1 patch 1 patch, transdermal, Administer over 24 Hours, Daily, First dose on 11/05/24 at 2000, Remove patch prior to MRI procedure as serious florentino may occur- patch may be reapplied. Remove previous patch,if present, before applying new. * 1530 (Medication Applied - Provider: Anahi Astudillo RN) * 1530 (Not Given - Provider: Samantha Oliver RN - Reason: Patient/family refused) * 1615 (Due - Provider: Samantha Walden [facility]) oseltamivir (TAMIFLU) capsule 30 mg 30 mg, oral, 2 times daily, First dose on Thu11/12/24 at 2200, For 9 doses, Indication: Influenza treatment * 2200 (Due) oseltamivir (TAMIFLU) capsule 75 mg (COMPLETED) 75 mg, oral, Once, On Thu11/11/24 at 1300, For 1 dose, Indication: Influenza treatment * 1422 (Given - Provider: Samantha Oliver, PAMELA) PARoxetine (PAXIL) tablet 10 mg 10 mg, oral, Daily, First dose on Thu11/10/24 at 0900, Look-alike/sound-alike medication - verify indication for use. * 1136 (Given - Provider: Anahi Astudillo RN) * 0833 (Given - Provider: Samantha Oliver RN) * 0908 (Given - Provider: Yadira Vigil RN) Medication Order//05/2025 lactated ringers infusion 200 mL/hr, intravenous, Continuous, Starting on Thu11/07/24 at 1245 * 1032 (Rate/Dose Change - Provider: Anahi Astudillo RN) * 1800 (New Bag - Provider: Georgette Lazo RN) * 2308 (New Bag - Provider: Sam Jane, RN) * 0410 (New Bag - Provider: Sam Jane, RN) * 0838 (New Bag - Provider: Samantha Oliver, PAMELA) * 0900 (Stop Bag - Provider: Yadira Vigil, RN) * 1423 (New Bag - Provider: Samantha Oliver, RN) * 1928 (New Bag - Provider: Sam Jane, RN) * 0045 (New Bag - Provider: Sam Jane, RN) * 0554 (New Bag - Provider: Sam Jane, RN) * 1105 (New Bag - Provider: Yadira Vigil, RN) * 1333 (Rate/Dose Verify - Provider: Yadira Vigil RN) Medication Order502/05/2025 acetaminophen (TYLENOL EXTRA STRENGTH) tablet 500 mg 500 mg, oral, Every 6 hours PRN, mild pain - pain scale 1-3, temperature greater than 38 C, headaches, Starting on Thu11/09/24 at 0806 benzocaine (HURRICAINE ONE) 20 % mouth spray 1 spray 1 spray, mouth/throat, 3 times daily PRN, mucositis, Starting on Shruti 11/10/24 at 0856 * 1137 (Given - Provider: Anahi Astudillo, RN) * 2112 (Given - Provider: Sam Jane, RN) * 0834 (Given - Provider: Samantha Olievr, RN) * 1424 (Given - Provider: Samantha Oliver, RN) * 2224 (Given - Provider: Sam Jane, RN) * 0908 (Given - Provider: Yadira Vigil RN) calcium gluconate 3,000 mg in sodium chloride 0.9 % 100 mL IVPB 3,000 mg, intravenous, at 43.3 mL/hr, Administer over 3 Hours, As needed, ionized calcium 3.5 to 3.9 mg/dL, Starting on 11/12/24 at 0926, IV Administration of calcium via a central or deep vein preferred. Avoid administration in small hand veins VESICANT (RED) calcium gluconate 4,000 mg in sodium chloride 0.9 % 250 mL IVPB 4,000 mg, intravenous, at 72.5 mL/hr, Administer over 4 Hours, As needed, ionized calcium 3.4 mg/dLor less, Starting on 11/12/24 at 0926, IV administration of calcium via a central or deep vein ispreferred. Avoid administration in small hand veins. VESICANT [...] less than 70 mg/dL, Starting on 11/05/24 [id number], If patient conscious and taking PO. If blood glucose is not greater than 70 mg/dL after initial treatment, repeat treatment. dextrose 50 % in water (D50W) 50% solution 25 mL 25 mL, intravenous, As needed, low blood sugar, blood glucose less than 70 mg/dL and unconscious orNPO with IV access, Starting on 11/05/24 at [...] mg/dL after initial treatment, repeat treatment. VESICANT (RED)Warning: HYPERTONIC solution. diphenhydrAMINE (BENADRYL) capsule 25 mg [...] additional orders. If blood glucose is not greaterthan 70 mg/dL after initial treatment, repeat treatment. magnesium sulfate IVPB 2000 mg/50 mL in iso-osmotic water (40 mg/mL premix) 2,000 mg, intravenous, at 25 mL/hr, Administer over 120 Minutes, As needed, Magnesium level 1.7 to 1.9 mg/dL, or Ionized Magnesium level 0.45 to 0.5 mmol/L., Starting on Thu11/07/24 at 1933, Recheck magnesium level 4 hours [...] complete. With each magnesium result continue the replacementorders as needed. ondansetron (PF) (ZOFRAN) injection 4 [...] Administer over 6 hours via dedicated line (peripheralline). If administered, recheck phosphorus level 4 hours after infusion complete. Order Group 1: potassium chloride (K-TAB,KLOR-CON) CR [...] Administer over 6 hours via dedicated line (peripheralline). If administered, recheck phosphorus level 4 hours [...] Give with a full glass of water. Medication Order04/24/// droPERidol (INAPSINE) injection 2.5 mg (COMPLETED) 2.5 mg, IntraVENous, ONCE, 1 dose, On Thu04/25/25 at 1230 * 1227 (Given - Provider: Layne Jacobs RN) enoxaparin (LOVENOX) injection 40 mg 40 mg, SubCUTAneous, DAILY, First dose on Thu04/25/25 at 1700, Until Discontinued, Indication of Use: Prophylaxis-DVT/PE, Administer by deep subCUTAneous injection with pt lying down. Alternate injection sites on abdominal wall. Do not rub site after injection. Check with provider prior to any invasive procedure. * 174 (Given - Provider: Ranjana Bay) * 0831 (Not Given - Provider: Veronique Lyn, PAMELA - Reason: IV Fluid Infusing) famotidine (PEPCID) 20 MG/2ML 20 mg in sodium chloride (PF) 0.9 % 10 mL injection 20 mg, IntraVENous, DAILY, First dose on Thu04/25/25 at 1815, Until Discontinued, IV Push over minimum of 2 minutes - Dilute with 10 mL NS * 2048 (Given - Provider: Hellen Camilo, PAMELA) * 0831 (Given - Provider: Veronique Lyn, RN) levETIRAcetam (KEPPRA) tablet 750 mg 750 mg, Oral, 2 TIMES DAILY, First dose on Thu04/25/25 at 2100, Until Discontinued, Do not crush orchew. * 2049 (Given - Provider: Hellen Camilo, PAMELA) * 0830 (Given - Provider: Veronique Lyn, RN) * 2100 (Due) PARoxetine (PAXIL) tablet 40 mg 40 mg, Oral, EVERY MORNING, First dose on Thu04/26/25 at 0900, Until Discontinued * 0830 (Given - Provider: Veronique Lyn RN) potassium bicarb-citric acid (EFFER-K) effervescent tablet 40 mEq (COMPLETED) 40 mEq, Oral, ONCE, 1 dose, On Thu04/25/25 at 1300, Do not chew or crush. Dissolve flavored tabletscompletely in 3 to 4 ounces of cold water; unflavored tablets may be dissolved in 3 to 4 ounces of cold juice. Patient to sip slowly over a 5 to 10 minute period. May further dilute if GI adverse effects occur. * 1328 (Given - Provider: Layne Jacobs RN) potassium chloride (KLOR-CON M) extended release tablet 40 mEq (COMPLETED) 40 mEq, Oral, ONCE, 1 dose, On Thu04/26/25 at 0745, Do not crush, chew, or suck on tablet. Tablet may also be broken in half and each half swallowed separately. * 0830 (Given - Provider: Veronique Lyn RN) potassium chloride (KLOR-CON M) extended release tablet 40 mEq (COMPLETED) 40 mEq, Oral, ONCE, 1 dose, On Thu04/26/25 at 1200, Do not crush, chew, or suck on tablet. Tablet may also be broken in half and each half swallowed separately. * 1220 (Given - Provider: Jo Berry RN) potassium chloride 10 mEq/100 mL IVPB (Peripheral Line) (COMPLETED) 10 mEq, IntraVENous, ONCE, 1 dose, On Thu04/25/25 at 1300, at 100 mL/hr, Potassium chloride doses are limited to a maximum of six consecutive doses before reassessment of laboratory values is needed. * 1331 (New Bag - Provider: Layne Jacobs RN) * 1623 (Stopped - Provider: Layne Jacobs RN) sodium chloride 0.9 % bolus 1,000 mL (COMPLETED) 1,000 mL (12.3 mL/kg), IntraVENous, at 983.6 mL/hr, Administer over 61 Minutes, ONCE, On Thu04/25/25 at 1215, For 1 dose * 1221 (New Bag - Provider: Layne Jacobs RN) * 1305 (Stopped - Provider: Layne Jacobs RN) sodium chloride 0.9 % bolus 1,000 mL (COMPLETED) 1,000 mL (12.3 mL/kg), IntraVENous, at 983.6 mL/hr, Administer over 61 Minutes, ONCE, On Thu04/25/25 at 1315, For 1 dose * 1328 (New Bag - Provider: Layne Jacobs, PAMELA) * 1624 (Stopped - Provider: Layne Jacobs RN) sodium chloride flush 0.9 % injection 5-40 mL 5-40 mL, IntraVENous, EVERY 12 HOURS SCHEDULED (2 times per day), First dose on Thu04/25/25 at 2100, Until Discontinued, For Line Patency: Peripheral IV = 5 mL; Midline or Central Line = 10 mL/lumen.If following IV push medication, administer flush at same rate as the IV push. Flush volume is determined by type of infusion therapy being given. For non-viscous solutions use: Peripheral IV = 5 mL Midline or Central Line = 10 mL/lumen For viscous solutions (i.e. blood components, parenteral nutrition, contrast media, or after obtaining blood sample) use: Peripheral IV = 10 mL Midline or CentralLine = 20 mL/lumen * 2050 (Not Given - Provider: Hellen Camilo RN - Reason: IV Fluid Infusing) * 0831 (Given - Provider: Veronique Lyn, PAMELA) * 2100 (Due) venlafaxine (EFFEXOR) tablet 37.5 mg 37.5 mg, Oral, DAILY, First dose on Thu04/25/25 at 1700, Until Discontinued * 1742 (Given - Provider: Ranjana Bay) * 0830 (Given - Provider: Veronique Lyn, RN) Medication Order04/24/// 0.9 % sodium chloride infusion (CANCELED) IntraVENous, at 75 mL/hr, CONTINUOUS, Starting on Thu04/25/25 at 1700, For 24 hours, Complete last bag that is running at 24 hours and then saline lock IV * 1743 (New Bag - Provider: Ranjana Bay) * 0739 (Stopped - Provider: Veronique Lyn, RN) dextrose 5 % and 0.45 % NaCl with KCl 20 mEq infusion IntraVENous, at 100 mL/hr, CONTINUOUS, Starting on Thu04/26/25 at 0745 * 0748 (New Bag - Provider: Veronique Lyn, RN) * 1630 (Stopped - Provider: Jo Berry, PAMELA) Medication Order/ 0.9 % sodium chloride infusion IntraVENous, at [...] at 1313, Until Thu04/25/25 at 1314, Other * 1314 (Given - Provider: Afshin Flores) magnesium [...] Administer if oral route cannot be used. * 0946 (Given - Provider: Jo Berry RN) ondansetron (ZOFRAN-ODT) disintegrating tablet 4 mg(Linked Group 2) 4 mg, Oral, EVERY 8 HOURS PRN, Starting on Thu04/25/25 at 1642, Until Discontinued, Nausea, Vomiting * 0946 (See Alternative - Provider: Jo Berry RN) polyethylene glycol [...] further dilute if GI adverse effects occur. * 0640 (See Alternative - Provider: Veronique Lyn RN) * 0747 (See Alternative - Provider: Veronique Lyn RN) * 0906 (See Alternative - Provider: Jo Berry RN) * 1011 (See Alternative - Provider: Jo Berry, PAMELA) * 1105 (See Alternative - Provider: Jo Berry, PAMELA) * 1129 (See Alternative - Provider: Jo Berry RN) * 1231 (See Alternative - Provider: Jo Berry RN) * 1330 (See Alternative - Provider: Jo Berry, RN) potassium chloride (KLOR-CON M) extended release [...] use in patients with CrCl less than 30mL/min. Do not crush, chew, or suck on tablet. Tablet may also be broken in half and each half swallowed separately. * 0640 (See Alternative - Provider: Veronique Lyn RN) * 0747 (See Alternative - Provider: Veronique Lyn RN) * 0906 (See Alternative - Provider: Jo Berry RN) * 1011 (See Alternative - Provider: Jo Berry RN) * 1105 (See Alternative - Provider: Jo Berry RN) * 1129 (See Alternative - Provider: Jo Berry, RN) * 1231 (See Alternative - Provider: Jo Berry, RN) * 1330 (See Alternative - Provider: Jo Berry, RN) potassium chloride 10 mEq/100 mL IVPB (Peripheral Line)(Linked Group 3) 10 mEq, IntraVENous, PRN, Starting on Thu04/25/25 at 1642, Until Discontinued, at 100 mL/hr, Potassium Replacement, K Lab Replacement Action 2.7 to 3.0 10 mEq IVPB x 6 doses (60 mEq Total) Under 2.7 CALL PROVIDER and administer 10 mEq IVPB x 6 doses (60 mEq Total) Infuse at 10 mEq/hr consecutively.Repeat Potassium lab 1 hour after final administration., Protocol not for use in patients with CrCl less than 30 mL/min. * 0640 (New Bag - Provider: Veronique Lyn RN) * 0747 (New Bag - Provider: Veronique Lyn RN) * 0906 (New Bag - Provider: Jo Berry, PAMELA) * 1011 (New Bag - Provider: Jo Berry, RN) * 1105 (Rate/Dose Change - Provider: Jo Berry RN) * 1129 (New Bag - Provider: Jo Berry, RN) * 1231 (New Bag - Provider: Jo Berry, RN) * 1330 (Stopped - Provider: Jo Berry RN) promethazine (PHENERGAN) 12.5mg in sodium chloride 0.9% 50 mL IVPB SOLN 12.5 mg 12.5 mg, IntraVENous, at 100 mL/hr, Administer over 30 Minutes, EVERY 6 HOURS PRN, Nausea, Startingon Thu04/26/25 at 0727, Administer via antecubital vein or higher. * 0836 (New Bag - Provider: Veronique Lyn RN) * 0910 (Stopped - Provider: Jo Berry RN) sodium [...] For viscous solutions (i.e. blood components, parenteral nutrition,contrast media, or after obtaining blood sample) use: Peripheral IV = 10 mL Midline or Central Line= 20 mL/lumen Order Group 1: acetaminophen (TYLENOL) tablet 650 [...] 6 HOURS PRN, Starting on Thu04/25/25 at 164, Until Discontinued, Nausea, Vomiting, Administer if oral route cannot be used. Group 3: potassium chloride (KLOR-CON M) extended release tablet 40 mEqJump to med 40 mEq, Oral, PRN, Starting on Thu04/25/25 at 164, Until Discontinued, Potassium Replacement, May give alternative linked oral order (ordered as effervescent, packet, or liquid solution) if patient unable to tolerate tablet. K Lab Replacement Action 3.1 to 3.5 40 mEq ORAL x 1 Under 3.1 Refer to IV replacement protocol Recheck K level in AM. Protocol not for use in patients with CrCl less than 30mL/min. Do not crush, chew, or suck on [...] (60 mEq Total) Infuse at 10 mEq/hr consecutively.Repeat Potassium lab 1 hour after final administration., Protocol not for use in patients with CrCl less than 30 mL/min. Medication Order//06/2025 ondansetron (ZOFRAN) injection 4 mg (COMPLETED) 4 mg, IntraVENous, ONCE, 1 dose, On 05/13/25 at 1515 * 1528 (Given - Provider: Eliane Tracey RN) potassium chloride (KLOR-CON M) extended release tablet 20 mEq (COMPLETED) 20 mEq, Oral, ONCE, 1 dose, On 05/13/25 at 1745, Do not crush or break. Do not crush, chew, or suck on tablet. Tablet may also be broken in half and each half swallowed separately. * 1739 (Given - Provider: Eliane Tracey RN) prochlorperazine (COMPAZINE) injection 10 mg (COMPLETED) 10 mg, IntraVENous, ONCE, 1 dose, On 05/13/25 at 1615, If administering IV push, administer at a maximum rate of 5 mg/minute. Patients should remain lying down following administration and be reassessed for relief of nausea and presence of hypotension. Patients should be assisted the first time they get up after administration. * 1619 (Given - Provider: Eliane Tracey RN) sodium chloride 0.9 % bolus 1,000 mL (COMPLETED) 1,000 mL, IntraVENous, at 1,000 mL/hr, Administer over 1 Hours, ONCE, On 05/13/25 at 1615, For 1 dose, May administer over 30 minutes if well tolerated. * 1617 (New Bag - Provider: Eliane Tracey RN) * 1739 (Stopped - Provider: Eliane Tracey RN) sodium chloride 0.9 % bolus 500 mL (COMPLETED) 500 mL, IntraVENous, at 1,000 mL/hr, Administer over 30 Minutes, ONCE, On Thu05/13/25 at 1515, For 1dose * 1526 (New Bag - Provider: Eliane Tracey RN) * 1603 (Stopped - Provider: Eliane Tracey RN) Medication Order// capsaicin (ZOSTRIX) 0.025 % cream (COMPLETED) Topical, Once, On Thu06/20/25 at 1230, For 1 dose, Apply to abdomen. Do not apply to wounds, damaged,broken or irritated skin. Do not cover with bandage. Do not use in combination with external heat source (eg. heating pad) * 1231 (Given - Provider: Rashmi Fraga RN - Comment: mid abdomen.) ondansetron (ZOFRAN) injection 4 mg (COMPLETED) 4 mg, IntraVENous, ONCE, 1 dose, On Thu06/20/25 at 1230 * 1223 (Given - Provider: Rashmi Fraga RN) sodium chloride 0.9 % bolus 1,000 mL (COMPLETED) 1,000 mL (11 mL/kg), IntraVENous, at 495.9 mL/hr, Administer over 121 Minutes, ONCE, On Thu06/20/25at 1230, For 1 dose * 1224 (New Bag - Provider: Rashmi Fraga RN) * 1225 (Rate/Dose Verify - Provider: Jen Leonard RN) * 1253 (Paused - Provider: Jen Leonard RN) * 1329 (Restarted - Provider: Jen Leonard RN) * 1338 (Paused - Provider: Jen Leonard RN) * 1357 (Restarted - Provider: Jen Leonard RN) * 1357 (Paused - Provider: Jen Leonard RN) * 1406 (Restarted - Provider: Jen Leonard RN) * 1425 (Due: Stopped - Provider: Rashmi Fraga RN) * 1503 (Stopped - Provider: Jen Leonard RN) Ordered Prescriptions (unrec ognized section and content) PrescriptionSigDispense QuantityRefillsLast FilledStart DateEnd Date ondansetron (ZOFRAN-ODT) 4 MG disintegrating tablet Take 1 tablet by mouth 3 times daily as needed for Nausea or Vomiting 28 tablet 508/10/2024PrescriptionSigDispense QuantityRefillsLast FilledStart Date End Date potassium chloride (KLOR-CON M) 20 MEQ extended release tablet Take 1 tablet by mouth daily for 4 doses 4 tablet / prochlorperazine (COMPAZINE) 10 MG tablet Take 1 tablet by mouth every 6 hours as needed (Nausea and Vomiting) 12 tablet 05/13/2025PrescriptionSigDispense QuantityRefillsLast FilledStart DateEnd Date ondansetron (ZOFRAN-ODT) 4 MG disintegrating tablet Take 1 tablet by mouth 3 times daily as needed for Nausea or Vomiting 21 tablet 06/20/2025 Goals (unrecognized section and content) Goals may be documented in a n alternate section FOR RECORDS PERTAINING TO PATIENTS WHO ARE [...] BE BASED ON THE PRIMARY CLINICAL RECORDS. [employer] provides no warranty or guarantee of the accuracy or completeness of information in this document.
[2025-08-23 20:45] LABS: Hematocrit 44.1 % (36.0-48.0); Hemoglobin 14.7 g/dL (12.0-16.0); Immature Granulocytes Abs Auto 0.26 10^3/uL (0.00-0.03); Immature Granulocytes Pct Auto 1.2 % (0.0-0.5); Lymphocytes Absolute Auto 1.2 10^3/uL (1.2-3.8); Mean Corpuscular HGB Conc 33.3 g/dL (29.9-35.2); Mean Corpuscular Hemoglobin 29.7 pg (26.7-34.0); Mean Corpuscular Volume 89.1 fL (81.0-99.0); Platelet Count 456 10^3/uL (150-450); Red Blood Count 4.95 10^6/uL (4.20-5.40); White Blood Count 21.8 10^3/uL (4.0-11.0)
[2025-08-23 21:07] LABS: Alanine Aminotransferase 109 U/L (14-59); Albumin Globulin Ratio 1.0; Albumin Level 4.8 g/dL (3.4-5.0); Alkaline Phosphatase 121 U/L (46-116); Anion Gap 19.6; Aspartate Amino Transferase 54 U/L (15-37); Blood Urea Nitrogen 17.0 mg/dL (7.0-18.0); Calcium 10.0 mg/dL (8.5-10.1); Carbon Dioxide 24.3 mmol/L (21.0-32.0); Chloride 96 mmol/L (98-107); Estimated GFR (African America 40 (>=60 mL/min/1.73m^2); Estimated GFR (Non-African Ame 33 (>=60 mL/min/1.73m^2); Globulin 4.7 g/dL; Glucose 192 mg/dL (74-106); Sodium 137 mmol/L (136-145); Total Protein 9.5 g/dL (6.4-8.2)
[2025-08-23 21:16] LABS: Potassium 2.9 mmol/L (3.5-5.1)
[2025-08-23 22:12] LABS: Cannabinoid Screen Urine POSITIVE (NEGATIVE); Methamphetamines Screen Urine NEGATIVE (NEGATIVE); Tricyclic Antidepressant Urine NEGATIVE (NEGATIVE)
--- NOTE | 2025-08-23 22:12 | PC.NURSE ---
Pt left AMA--scenario writer and PA explained risks involved with low K+ and keppra. She choose to leave AMA. OTD with her father. No further s/s of seizure activity noted.
== END 2025-08-23 22:18 | disposition left against medical advice (07) ==
PROVIDERS: Physician Assistant; Emergency Provider Emergency Medicine; PCP Student in an Organized Health Care Education/Training Program
DX: G40.909 Epilepsy, unspecified, not intractable, without status epilepticus (principal); Z53.29 Procedure and treatment not carried out because of patient's decision for other reasons; E87.6 Hypokalemia; N17.9 Acute kidney failure, unspecified; R74.01 Elevation of levels of liver transaminase levels; Z79.899 Other long term (current) drug therapy
CPT/HCPCS: 36415; 70450; 72125; 76376; 80053; 80307; 80320; 84703; 85025; 93005; 99285; J2405

== ENCOUNTER 2025-08-26 07:41 | Emergency (ER) | payer OTHER, SELFPAY ==
[2025-08-26] VITALS (37 sets, daily range): BP systolic 122–157; BP diastolic 84–114; PULSE 60–106; TEMP 36.8; O2SAT 96–100; BMI 35.4
--- NOTE | 2025-08-26 08:11 | CT_ITS ---
The [address] [address] Patient Name: SHERI ALCALA MRN: [id number] date: 2000 Sex: F Assigned Patient Location: ER Current Patient Location: [facility] Accession/Order Number: [id number] Exam Date: 08/26/2025 08:52 Report Date: 08/26/2025 09:19 At the request of: OFELIA AZUL MD Procedure: CT head/brain wo con CT BRAIN WITHOUT CONTRAST: CLINICAL HISTORY: Seizure. Head pain COMPARISON: CT brain 08/23/2025 TECHNIQUE: Contiguous axial unenhanced images were obtained through the brain. This CT exam was performed using one or more following dose reduction techniques: Automated exposure control, adjustment of the mA and/or kV according to patient size, or use of iterative reconstruction technique. FINDINGS: There is no evidence of midline shift, intra or extra-axial fluid collection, hemorrhage or CT evidence of stroke. Posterior fossa appears unremarkable. Visualized intraorbital contents demonstrate no acute findings. Visualized paranasal sinuses are clear. The surrounding soft tissues are normal. CT/CT head/brain wo con IMPRESSION: NO ACUTE INTRACRANIAL ABNORMALITY. Impression dictated by: Tono Cuellar Jr., D.O. 08/26/2025 9:19 AM Dictation Location: [facility] Electronically authenticated by: [id number] Y Date: 08/26/2025 09:19
--- NOTE | 2025-08-26 08:14 | CT_ITS ---
The [place] [id number] Patient Name: SHERI ALCALA MRN: [id number] date: 2000 Sex: F Assigned Patient Location: ER Current Patient Location: [facility] Accession/Order Number: [id number] Exam Date: 08/26/2025 08:52 Report Date: 08/26/2025 09:21 At the request of: OFELIA AZUL MD Procedure: CT abdomen pelvis wo con CT ABDOMEN AND PELVIS WITHOUT INTRAVENOUS CONTRAST: CLINICAL HISTORY: abd pain RUQ COMPARISON: None TECHNIQUE: Spiral images were obtained through the abdomen and pelvis without intravenous contrast. This CT exam was performed using one or more following dose reduction techniques: Automated exposure control, adjustment of the mA and/or kV according to patient size, or use of iterative reconstruction technique. FINDINGS: Lung Bases: [No acute findings.] Organs:Suboptimal evaluation due to lack of IV contrast.[Likely gallbladder sludge. No CBD dilatation. Liver spleen pancreas adrenal glands aorta and kidneys all appear unremarkable. GI: Stomach is grossly unremarkable. Small bowel appears nondilated. Appendix is normal. No acute colonic abnormality.[ Pelvis:[Urinary bladder is grossly unremarkable. Uterus has been removed.] Peritoneum/Retroperitoneum:No free air or free fluid or lymphadenopathy.[ Abd wall/Bones:No acute findings. Osseous structures demonstrate degenerative change.[ CT/CT abdomen pelvis wo con IMPRESSION: No acute findings. Questionable gallbladder sludge. This can BE confirmed by ultrasound. Impression dictated by: Tono Cuellar Jr., DMarcusOMarcus 08/26/2025 9:21 AM Dictation Location: [employer] Electronically authenticated by: [id number] Y Date: 08/26/2025 09:21
[2025-08-26] MEDS: 0.9 % SODIUM CHLORIDE 1,000 ML 1000 ML IV (08:25)
[2025-08-26] MEDS: FAMOTIDINE/PF 20 MG/2 ML VIAL IV (08:25)
[2025-08-26 08:30] LABS: Hematocrit 45.5 % (36.0-48.0); Hemoglobin 15.9 g/dL (12.0-16.0); Mean Corpuscular HGB Conc 34.9 g/dL (29.9-35.2); Mean Corpuscular Hemoglobin 30.2 pg (26.7-34.0); Mean Corpuscular Volume 86.3 fL (81.0-99.0); Platelet Count 443 10^3/uL (150-450); Red Blood Count 5.27 10^6/uL (4.20-5.40); White Blood Count 19.2 10^3/uL (4.0-11.0)
[2025-08-26 08:48] LABS: Alanine Aminotransferase 64 U/L (14-59); Albumin Globulin Ratio 1.0; Albumin Level 4.7 g/dL (3.4-5.0); Alkaline Phosphatase 104 U/L (46-116); Anion Gap 18.7; Aspartate Amino Transferase 30 U/L (15-37); Blood Urea Nitrogen 31.0 mg/dL (7.0-18.0); Calcium 9.8 mg/dL (8.5-10.1); Carbon Dioxide 27.8 mmol/L (21.0-32.0); Chloride 90 mmol/L (98-107); Estimated GFR (African America 37 (>=60 mL/min/1.73m^2); Estimated GFR (Non-African Ame 31 (>=60 mL/min/1.73m^2); Globulin 4.8 g/dL; Glucose 133 mg/dL (74-106); Sodium 134 mmol/L (136-145); Total Protein 9.5 g/dL (6.4-8.2)
--- OUTSIDE RECORDS SUMMARY | 2025-08-26 08:48 | XMS_ITS | CCD ---
Author Organization [facility] Care Team Providers Care Rn Physician Office Name Role Phone REQUEST, DR NONE LISTED Primary Care Unavaila van SUAREZ, DR AMADOR Admitting Unavailable ERICK, DR AMADOR Attending Unavailable ERICK, DR AMADOR Consulting Unavailable Barb Woodard Unavailable ECE JIANG Referring Unavailable CEE JIANG Attending Unavailable CELINA PARKER Attending Unavailable CELINA PARKER Attending Unavailable CELINA PARKER Attending Unavailable MD Ottoniel Arias Primary Care Provider MD Oibe Harley Admit Provider MD Obie Harley Attending Provider [phone] Ottoniel Arias MD Primary Care Provider Ottoniel [...] Ottoniel PANG Primary Care Provider [facility] Donavon Montalvo MD Attending Provider [phone] Francisco Chaidez PA-C Attending Provider MEGHA BRAGG [...] Medications MedicationDrug Class(es)DatesSig (Normalized)Sig (Original)Acetaminophen (3 sources)Start: 72-64-2805bcbibdqogqgti (TYLENOL) tablet 650 mgStart: 31-49-0045ugfp 500 mg by mouth every six hours as needed for pain and fever and headacheStart: 11-05-2024 End: 25-97-6962BGKNgickcntw 15 mg oral tablet (17 sources)Atypical AntipsychoticStart: 70-59-9677nukv 0.5 tablet by mouth in the morningARIPiprazole (ABILIFY) 15 mg tablet Take 0.5 tablets (7.5 mg total) by mouth in the morning. 10/14/2024 ActiveStart: 10-14-2024 End: 01-63-0075lors 1 tablet by mouth in the morningARIPiprazole (ABILIFY) 2 mg tablet Take 1 tablet (2 mg total) by mouth in the morning. 10/14/2024 Active Start: 68-63-8512eryq 1 tablet by mouth once dailyARIPiprazole (ABILIFY) 5 MG tablet Take 1 tablet by mouth daily Activebenzocaine 200 mg/ml mucosal spray (1 source)Standardized Chemical AllergenStart: 07-25-7498pkdFSRkxi hydrochloride 5 mg oral tablet (8 sources)Start: 47-20-7928maxIIRazg (BUSPAR) 5 mg tablet Take 1 tablet [...] calcium gluconate 20 mg/ml injection (1 source)Start: 36-71-8178zwfrlywwkz propionate 0.0005 mg/mg topical ointment (8 sources)CorticosteroidStart: 49-45-7307oeoljruyjD (TEMOVATE) 0.05 % ointment Indications: Eczema of right hand Apply 1 Application topically nightly. 30 g 11/22/2024 Activeergocalciferol 1.25 mg oral capsule (2 sources)Provitamin D2 CompoundStart: 04-19-0195dkep 1 capsule by mouth once famotidine (PEPCID) 20 MG/2ML 20 mg in sodium chloride (PF) 0.9 % 10 mL injection (1 source)Start: 59-65-6639klcz 10 mL intravenously once daily20 mg, IntraVENous, DAILY, First dose on Thu04/25/25 at 1815, Until Discontinued, IV Push over minimum of 2 minutes - Dilute with 10 mL NSfolic acid 1 mg oral tablet (2 sources)Start: 63-32-5308rycb 1 tablet by mouth once dailyglucagon (rdna) 1 mg injection (1 source)Antihypoglycemic AgentStart: ml glucose 500 mg/ml prefilled syringe (2 sources)Start: 22-15-4862Igidy: ml glucose 50 mg/ml / potassium chloride 0.02 meq/ml / sodium chloride 4.5 mg/ml injection (1 source)Start: 04-32-9522UetjyKMFhsi, at 100 mL/hr, CONTINUOUS, Starting on Thu04/26/25 at 12487 ml heparin sodium, porcine 5000 unt/ml injection (1 source)Unfractionated Heparin, Anti-coagulantStart: 69-55-9412dvktbkgemc 100 mg oral tablet (8 sources)Anti-epileptic AgentStart: 11-12-2024 End: 70-48-4488tdgu 1 tablet by mouth in the morning, then take 1 tablet by mouth at bedtimelacosamide (VIMPAT) 100 mg tablet Indications: Seizure (CMS-HCC) Take 1 tablet (100 mg total) by mouth in the morning and 1 tablet (100 mg total) before bedtime. Do all this for 30 days. 60 tablet 11/12/2024 12/12/2024 Active Start: 11-12-2024 End: 35-83-8686Nhqjj: 21-48-0497ozfejtaa lactate 120 mg/ml topical cream (17 sources)Start: 73-48-7313cxklcskz lactate (AMLACTIN) 12 % cream Apply 1 Application topically 2 times daily 11/12/2024 Qobpab42 ml magnesium sulfate 40 mg/ml injection (4 sources)Start: 20-86-0594Irijw: 99-39-2770Recnl: 11-07-2024 End: 01-42-4547lkpnxlevwdnhwg 10 mg oral tablet (1 source)Dopamine-2 Receptor AntagonistStart: 16-17-1839Qaufsc 10 MG 1 Tablet Orally 2-3 times per day prn nausea and vomiting 18 Jul, 2023 Wwxkyz12 hr nicotine 0.583 mg/hr transdermal system (1 source)Cholinergic Nicotinic AgonistStart: 54-69-9042VLUELlhwsw 5 mg oral tablet (2 sources)Atypical AntipsychoticStart: 54-41-9593ukph 1 tablet by mouth every six hours as neededomeprazole 20 mg delayed release oral capsule (1 source)Proton Pump Inhibitortake 1 capsule by mouth in the morningOmeprazole 20 MG TAKE 1 CAPSULE BY MOUTH IN THE MORNING Oral for 30 Days Activeondansetron 4 mg disintegrating oral tablet (15 sources)Serotonin-3 Receptor AntagonistStart: 62-62-9572ecgz 1 tablet by mouth three times daily as needed for nauseaondansetron (ZOFRAN-ODT) 4 MG disintegrating tablet Take 1 tablet by mouth 3 times daily as needed for Nausea or Vomiting 21 tablet 06/20/2025 ActiveStart: 06-20-2025 End: mg, IntraVENous, ONCE, 1 dose, On Thu06/20/25 at 1230Start: 05-13-2025 End: mg, IntraVENous, ONCE, 1 dose, On 05/13/25 at 1515Start: 35-67-8635aytd 1 tablet by mouth every eight hours as needed for nausea ondansetron ODT (ZOFRAN ODT) 4 mg disintegrating tablet Dissolve 1 tablet (4 mg total) on tongue every 8 (eight) hours as needed for nausea for up to 10 doses. 10 tablet 02/23/2025 ActiveStart: 02-23-2025 End: 05-89-6937fnuawshcdlw ODT (ZOFRAN ODT) 4 mg disintegrating tablet Dissolve 1 tablet (4 mg total) on tongue 3 (three) times a day as needed for nausea for up to 3 doses. 3 tablet 03/01/2025 05/05/2025 Discontinued (Duplicate Listing) Start: 25-08-9957ymqr 4 mg intravenously every six hours as needed for nausea and vomitingStart: 22-85-9352Rdgcof 4 MG 1 tablet ODT tid prn 15 Jun, 2023 Not-Takingondansetron (ZOFRAN-ODT) disintegrating tablet 4 mg (1 source)Start: 27-08-5656cfwyvehvrxs (ZOFRAN-ODT) disintegrating tablet 4 mg polyethylene glycol 3350 92771 mg powder for oral solution (1 source)Osmotic LaxativeStart: 21-48-3879mupknwrmaroltbqpa potassium chloride 20 meq extended release oral tablet (7 sources)Start: 05-13-2025 End: 77-14-2326cdmz 1 tablet by mouth once dailypotassium chloride (KLOR-CON M) 20 MEQ extended release tablet Take 1 tablet by mouth daily for 4 doses 4 tablet 05/13/2025 ActiveStart: 04-26-2025 End: 24-59-725893 mEq, Oral, ONCE, 1 dose, On Thu04/26/25 at 1200, Do not crush, chew, or suck on tablet. Tablet may also be broken in half and each half swallowed separately.Start: 92-36-4691oqlsugozr chloride (KLOR-CON M) extended release tablet 40 mEqStart: 04-25-2025 End: 26-39-569238 mEq, IntraVENous, ONCE, 1 dose, On Thu04/25/25 at 1300, at 100 mL/hr, Potassium chloride doses are limited to a maximum of six consecutive doses before reassessment of laboratory values is needed.promethazine hydrochloride 12.5 mg oral tablet (2 sources)PhenothiazineStart: 95-69-0870ueks 1 tablet by mouth every six hours as needed for nauseapromethazine (PHENERGAN) 12.5 mg tablet Indications: Nausea and vomiting, unspecified vomiting typeTake 1 tablet (12.5 mg total) by mouth every 6 (six) hours as needed for nausea or vomiting. 30 tablet 05/05/2025 Activepromethazine (PHENERGAN) 12.5mg in sodium chloride 0.9% 50 mL IVPB SOLN 12.5 mg (1 source)Start: 92-25-645074.5 mg, IntraVENous, at 100 mL/hr, Administer over 30 Minutes, EVERY 6 HOURS PRN, Nausea, Startingon Thu04/26/25 at 0727, Administer via antecubital vein or higher.thiamine 100 mg oral tablet (2 sources)Start: 51-17-0115hwcw 1 tablet by mouth twice dailytraZODone hydrochloride 50 mg oral tablet (2 sources)Serotonin Reuptake InhibitorStart: 68-51-1363jqcm 1 tablet by mouth once daily at [...] full glass of water. [Order 3 End]Start: 04-43-8914Pnpgx: 20-34-7578Wnyrv: 11-12-2024 [Order 1 Start] Name: potassium chloride [...] 1 hour. [Order 3 End]Start: 11-07-2024 End: 52-08-5000Niwsx: 11-07-2024 End: 44-67-1329Mpbbt: 11-06-2024 End: 12-23-0854Gmuce: 11-05-2024 End: 11-05-2024 Completed/Discontinued Medications MedicationDrug Class(es)DatesSig (Normalized)Sig (Original)amLODIPine 5 mg oral tablet (1 source)Dihydropyridine Calcium Channel BlockerStart: 11-09-2024 End: 45-31-9639pvqgckrjj 0.25 mg/ml topical cream (1 source)Start: 06-20-2025 End: 37-33-6343oypmw 1 dose topically onceTopical, Once, On Thu06/20/25 at 1230, For 1 dose, Apply to abdomen. Do not apply to wounds, damaged,broken or irritated skin. Do not cover with bandage. Do not use in combination with external heat source (eg. heating pad)cariprazine 1.5 mg oral capsule (2 sources)Atypical Antipsychotic End: 42-79-0117fmsd 1 capsule by mouth in the morningcariprazine (VRAYLAR) 1.5 mg capsule Take 1 capsule (1.5 mg total) by mouth in the morning. Active cefTRIAXone 2000 mg injection (2 sources)Cephalosporin AntibacterialStart: 11-05-2024 End: 11-35-2552zeev 2000 mg intravenously every twenty-four hourscyclobenzaprine hydrochloride 10 mg oral tablet (8 sources)Muscle RelaxantStart: 01-06-2024 End: ml dexamethasone phosphate 10 mg/ml injection (1 source)CorticosteroidStart: 11-05-2024 End: 00-03-2115xndg 10 mg intravenously every six ml dexmedetomidine 0.004 mg/ml injection (1 source)Central alpha-2 Adrenergic AgonistStart: 11-05-2024 End: 21-42-2651xvtfdxmgfiMYODJ (2 sources)Histamine-1 Receptor AntagonistStart: 11-11-2024 End: 06-55-9652Rnauj: 19-89-3626llik 25 mg by mouth every six hours as needed2 ml droperidol 2.5 mg/ml injection (1 source)Dopamine-2 Receptor AntagonistStart: 04-25-2025 End: .5 mg, IntraVENous, ONCE, 1 dose, On Thu04/25/25 at 1230Start: 04-25-2025 End: .5 mg, IntraVENous, ONCE, 1 dose, On Thu04/25/25 [place] [address].4 ml enoxaparin sodium 100 mg/ml prefilled syringe (1 source)Low Molecular Weight HeparinStart: 29-26-3945fjapfh 40 mg by subcutaneous injection once daily40 [...] mg/ml injection (2 sources)Opioid AgonistStart: 11-05-2024 End: 65-95-7952idbi 25 ug intravenously every hour as neededhydrOXYzine hydrochloride 25 mg oral tablet (14 sources)AntihistamineStart: 11-03-2024 End: 75-45-8208uise 25 mg by mouth every eight hours as neededStart: 04-21-2024 take 1 capsule by mouth every six hours as needed for anxietyStart: 09-09-2023 End: 07-78-9544cmrgzurqc 800 mg oral tablet (8 sources)Nonsteroidal Anti-inflammatory DrugStart: 01-06-2024 End: 26-25-0740egad 800 mg by mouth every eight hours as needed for pain iopamidol (ISOVUE-370) 76 % injection 75 mL (1 source)Start: 04-25-2025 End: 18-89-0950nwoy 1 dose intravenously once75 mL, IntraVENous, IMG ONCE PRN, 1 dose, Starting on Thu04/25/25 at 1313, Until Thu04/25/25 at 1314, Other lamoTRIgine 100 mg oral tablet (5 sources)Mood Stabilizer, Anti-epileptic AgentStart: 09-14-2024 End: 25-42-6696Dgkxh: 32-17-1936oggtOUMmrvh (LaMICtal) 100 mg tablet Take 100 mg in the morning and 50 mg at night for 2 weeks, after that start taking 100 mg once in the morning and once at night and continue on that dose 60 tablet 2 09/14/2024 ActiveStart: 45-90-9674atxkDSAfvpu (LaMICtal) 100 mg tablet Take 110 mg by mouth. 06/23/2024 ActiveStart: 05-00-0575layh 1 tablet by mouth once daily levETIRAcetam 750 mg oral tablet (20 sources)Start: 49-19-6199yxhr 750 mg by mouth twice wefyr310 mg, Oral, 2 TIMES DAILY, First dose on Thu04/25/25 at 2100, Until Discontinued, Do not crush orchew.Start: 89-82-9271chya 3 tablets by mouth in the morning, then take 3 tablets by mouth at bedtimelevETIRAcetam (KEPPRA) 500 mg tablet Indications: Seizure disorder (CMS-HCC) Take 3 tablets (1,500 mg total) by mouth in the morning and 3 tablets (1,500 mg total) before bedtime. 540 tablet 1 03/15/2025 ActiveStart: 12-21-2024 End: 71-53-9631qpxw 2 tablets by mouth in the morning, then take 2 tablets by mouth at bedtimelevETIRAcetam (KEPPRA) 500 mg tablet Indications: Seizure disorder (CMS-HCC) Take 2 tablets (1,000 mg total) by mouth in the morning and 2 tablets (1,000 mg total) before bedtime. 360 tablet 1 12/21/2024 03/15/2025 Discontinued (Reorder)Start: 11-12-2024 End: 66-87-3193undz 1 tablet by mouth in the morning, then take 1 tablet by mouth at bedtimelevETIRAcetam (KEPPRA) 500 mg tablet Take 1 tablet (500 mg total) by mouth in the morning and 1 tablet (500 mg total) before bedtime. 12/10/2024 12/21/2024 Discontinued (Reorder)Start: 11-07-2024 End: 98-40-8467Ttmmv: 11-05-2024 End: 37-65-7070ckxf 1000 mg intravenously every twelve hoursStart: 09-14-2024 End: 38-11-0317neagdriem 0.05 mg/mg medicated patch (8 sources)Antiarrhythmic, Amide Local AnestheticStart: 01-06-2024 End: 40-60-5682tvruiyRZHAYBYybsts (7 sources)CorticosteroidStart: 11-03-2024 End: 21-53-1523Safnw: 01-06-2024 End: 13-62-3135voqphnPWYDRABscswx (MEDROL, PENELOPE,) 4 mg tablet follow package directions 21 tablet 01/06/2024 07/12/2024 Discontinued (Therapy completed) Start: 15-13-0146lmoxgtAMDJQFMzoofz (MEDROL, PENELOPE,) 4 mg tablet follow package directions 21 tablet 01/06/2024 ActiveStart: 18-56-2477xdtkuxCATBCETftstk (MEDROL, PENELOPE,) 4 mg tablet follow package directions 21 tablet 0 01/06/2024 ActivemetroNIDAZOLE 500 mg oral tablet (1 source)Nitroimidazole AntimicrobialStart: 11-05-2024 End: 61-29-1790soozyzwdjwg 30 mg oral capsule (6 sources)Neuraminidase InhibitorStart: 11-12-2024 End: 04-33-6473dgce 1 capsule by mouth in the morning, then take 1 capsule by mouth at bedtimeoseltamivir (TAMIFLU) 30 mg capsule Take 1 capsule (30 mg total) by mouth in the morning and 1 capsule (30 mg total) before bedtime. Do all this for 4 days. 8 capsule 11/12/2024 11/16/2024 ExpiredStart: 11-12-2024 End: 04-53-9295Qzdoj: 11-11-2024 End: 21-64-1192NOQfgnvjdq hydrochloride 20 mg oral tablet (20 sources)Serotonin Reuptake InhibitorStart: 51-28-4458tuau 40 mg by mouth once daily in the cevdxeu55 mg, Oral, EVERY MORNING, First dose on Thu04/26/25 at 0900, Until DiscontinuedStart: 11-13-2024 End: 03-29-0093ikvu 1 tablet by mouth in the morningPARoxetine (PAXIL) 10 mg tablet Take 1 tablet (10 mg total) by mouth in the morning for 30 days. 30tablet 11/13/2024 12/13/2024 ActiveStart: 11-05-2024 End: 85-25-3580Iwdin: 10-11-2024 End: 76-79-0290Jfoco: 10-27-2023 End: 89-08-1121ptfw 1 tablet by mouth once daily in the morningPARoxetine (PAXIL) 40 mg tablet Take 1 tablet (40 mg total) by mouth every morning. 12/10/2024 ActiveStart: 32-40-4520pqyc 1 tablet by mouth in the morning PARoxetine (PAXIL) 20 mg tablet Indications: Generalized anxiety disorder Take 1 tablet (20 mg total) by mouth in the morning. 90 tablet 2 10/08/2023 Active Start: 09-09-2023 End: 39-86-0839jigp 1 tablet by mouth in the morningPARoxetine (PAXIL) 10 mg tablet Indications: Generalized anxiety disorder Take 1 tablet (10 mg total) by mouth in the morning. 30 tablet 2 09/09/2023 10/08/2023 Discontinuedpotassium bicarbonate 20 meq effervescent oral tablet (1 source)Start: 04-25-2025 End: 28-48-8588evnk 3-4 tablets by mouth once40 mEq, Oral, [...] mg/ml injectable solution (4 sources)PhenothiazineStart: 05-13-2025 End: 11-20-162590 mg, IntraVENous, ONCE, 1 dose, On 05/13/25 at 1615, If administering IV push, administer at a maximum rate of 5 mg/minute. Patients should remain lying down following administration and be reassessed for relief of nausea and presence of hypotension. Patients should be assisted the first time they get up after administration.Start: 10-06-7784jsay 1 tablet by mouth every six hours as needed for nausea and vomitingprochlorperazine (COMPAZINE) 10 MG tablet Take 1 tablet by mouth every 6 hours as needed (Nausea and Vomiting) 12 tablet 05/13/2025 Jkbhyw85 ml sodium chloride 9 mg/ml injection (10 [...] mL Midline or CentralLine = 20 mL/lumenStart: 97-86-6614Ciuld: 04-25-2025 End: 82-19-3720HrezyJFLnuw, at 75 mL/hr, CONTINUOUS, Starting on Thu04/25/25 at 1700, For 24 hours, Complete last bag that is running at 24 hours and then saline lock IVStart: 11-05-2024 End: 81-95-0966uxCZFxrrmk 4 mg oral tablet (6 sources)Central alpha-2 Adrenergic AgonistStart: 01-07-2024 End: 91-22-8278ttCKPsdbhs (ZANAFLEX) 4 mg tablet Indications: Seizure (CMS-HCC) , Muscle cramp Use 1 tab each night scheduled. If still having muscle cramps spasm can have 1 tab in day as needed. 60 tablet 01/07/2024 07/12/2024 Discontinued (Discontinued by another clinician)venlafaxine 37.5 mg oral tablet (20 sources)Serotonin and Norepinephrine Reuptake InhibitorStart: 77-24-6005socj 37.5 mg by mouth once daily37.5 mg, Oral, DAILY, First dose on Thu04/25/25 at 1700, Until DiscontinuedStart: 59-39-1171crtq 1 capsule by mouth every twenty- four hours in the morningvenlafaxine XR (EFFEXOR XR) 37.5 mg 24 hr capsule Take 1 capsule (37.5 mg total) by mouth in the morning. 11/21/2024 ActiveStart: 90-41-3859riyt 1 tablet by mouth once daily at breakfastvenlafaxine 75 MG tablet extended release 24hr 24 hr tablet Take 1 tablet (75 mg total) by mouth daily with breakfast. 09/05/2024 ActiveStart: 04-21-2024 End: 61-04-5691Teukl: 03-22-2024 End: 17-16-1289jjnh 1 capsule by mouth once dailyVenlafaxine 37.5 mg capsule,extended release 24hr Discontinued 37.5 MG PO Daily April 17, 2024 12:0 0am April 22, 2024 8:12amStart: 56-35-2913lcfo 1 capsule by mouth every twenty- four hours in the morningvenlafaxine XR (EFFEXOR XR) 37.5 mg 24 hr capsule Indications: Anxiety Take 1 capsule (37.5 mg total) by mouth in the morning. 90 capsule 03/22/2024 ActiveStart: 11-24-2023 End: 26-08-6396fibh 1 capsule by mouth every twenty-four hours in the morning venlafaxine XR (EFFEXOR XR) 37.5 mg 24 hr capsule Indications: Anxiety Take 1 capsule (37.5 mg total) by mouth in the morning. 90 capsule 11/24/2023 02/08/2024 Discontinued (Reorder) Problems Active Problems Problem ClassificationProblemDateDocumented DateEpisodic/ChronicAcute and unspecified renal failure (20 sources)Acute renal failure syndrome; Translations: [Acute kidney failure, unspecified]Onset: 933887-73-9853QxkbrkmnMsmokzp disorders (20 sources)Anxiety; Translations: [Anxiety disorder, unspecified]Onset: 778446-32-1663CaasctwAnnvfcsku and vision defects (20 sources)Visual impairment; Translations: [Unspecified visual loss]Onset: 537963-29-0664ZvlkrnuSyibwowh; convulsions (20 sources)Seizure disorder; Translations: [Epilepsy, unspecified, not intractable, without status epilepticus]Onset: hronic Epilepsy; convulsions (20 sources)Neurological finding; Translations: [Unspecified convulsions]Onset: 09-12-2024 Resolved: 728735-42-5176SxrorswuWitfhgefdc disorders (20 sources)Gastro-esophageal reflux disease without esophagitis; Translations: [Gastroesophageal reflux disease]Onset: 671197-08-6875HvmahrcMxiekiion (3 sources)Influenza due to Influenza A virus subtype H1N1; Translations: [Influenza due to other identified influenza virus with other respiratory manifestations]Onset: 758026-94-6542MjrwpjfeNmyk disorders (20 sources)Depressive disorder; Translations: [Depression]Onset: 02-06-2023 92-18-3185NnhixucHmxp disorders (20 sources)Mood disorders; Translations: [Depression, unspecified]Onset: 02-06-2023 Resolved: Nausea and vomiting (19 sources)Nausea with vomiting, unspecified; Translations: [Nausea and vomiting]Onset: 39-63-5052UcyxajlzFkjbx aftercare (1 source)Post-discharge follow-up; Translations: [Encounter for follow-up examination after completed treatment for conditions other than malignant neoplasm]93-87-8534PtayvhwqJehxr complications of (1 source)Missed miscarriage; Translations: [Missed ]62-00-4918Zrqwxsel Other complications of (1 source)Missed ; Translations: [Missed ]Onset: 07-11-2025 EpisodicOther complications of (1 source)Spotting complicating , first trimester; Translations: [Spotting complicating , first trimester]Onset: 65-88-1062GdeguufvWrbmt connective tissue disease (2 sources)Non-traumatic rhabdomyolysis; Translations: [Rhabdomyolysis] 51-80-7952AzalgzimVrpkk connective tissue disease (1 source)Rhabdomyolysis; Translations: [Rhabdomyolysis]Onset: 11-05-2024 EpisodicOther female genital disorders (1 source)Recurrent loss; 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] Onset: 20-10-0119DpebmbzhIbjzk liver diseases (2 sources)Enzyme level - finding; Translations: [Transaminitis]11-12-2024 EpisodicOther and delivery including normal (2 sources) test positive; Translations: [Encounter for test, result positive]Onset: 962386-76-7815YuapquatKuivnput codes; unclassified (1 source)Altered mental status, unspecified; Translations: [Altered mental status, unspecified]Onset: 50-39-0066ZqictegqNygyhctv codes; unclassified (1 source)Disorientation, unspecified; Translations: [Disorientation, unspecified]Onset: 96-01-5043YijniavxKikvognn codes; unclassified (1 source)Altered mental statusOnset: 15-57-3487FdgpvpgnYbfdkcyhx and history of mental health and substance abuse codes (1 source)Personal history of nicotine dependence; Translations: [PERSONAL HISTORY OF NICOTINE DEPEND]Onset: 74-02-0203EngtjrovTbgsccsazms; intervertebral disc disorders; other back problems (2 sources)Lumbago with sciatica, left side; Translations: [Lumbago with sciatica, left side]Onset: 65-01-8078TzodbekaVfnkrsfnm-related disorders (3 sources)Cannabis hyperemesis syndrome co-occurrent and due to cannabis abuse; Translations: [Cannabis abusewith other cannabis-induced disorder]Onset: 689877-90-6128GnxughxHdqozybzelfg (1 source)Elevation of levels of liver transaminase levels; Translations: [Elevation of levels of liver transaminase levels]Onset: 90-62-1818Iyvqvkmbbvnv (1 source)Drug rash with eosinophilia and systemic symptoms syndrome; Translations: [Drug rash with eosinophilia and systemic symptoms syndrome]Onset: 49-03-8794Mlxvmhtkvjla (1 source)illOnset: 45-61-6493Ztiwkbkvpeeg (1 source)inquiry of how far along in pregnancyOnset: 06-19-2025 Past or Other Problems Problem ClassificationProblemDateDocumented DateEpisodic/ChronicAbdominal pain (2 sources)Unspecified abdominal pain; Translations: [Abdominal pain]Onset: 05-90-2445PygdygweMstdioet reactions (20 sources)Eczema; Translations: [Dermatitis, unspecified]Onset: 02-06-2023 67-01-2274RsutoeryKhcliim dysrhythmias (2 sources)Tachycardia, unspecified; Translations: [Tachycardia, unspecified] Onset: 42-31-5248AamsyzlxM Codes: Adverse effects of medical drugs (1 source)Adverse effect of unspecified drugs, medicaments and biological substances, initial encounter; Translations: [Adverse effect of unspecified drugs, medicaments and biological substances, initial encounter]Onset: 49-04-7066VnubmebyTvstx and electrolyte disorders (8 sources)Other disorders of electrolyte and fluid balance, not elsewhere classified; Translations: [Hypokalemia]Onset: 894620-90-5831Qoeqagrg Gastrointestinal hemorrhage (1 source)Hematemesis; Translations: [Hematemesis]Onset: 93-59-3962Wexrnvmr Noninfectious gastroenteritis (1 source)Noninfective gastroenteritis and colitis, unspecified; Translations: [Noninfective gastroenteritis and colitis, unspecified]Onset: 31-06-8392Svbgngsn Other connective tissue disease (1 source)Cramp; Translations: [Cramp and spasm]61-28-2208WxijttcqGcqnm disorders of stomach and duodenum (1 source)Adverse reaction to cannabis; Translations: [Cannabinoid hyperemesis syndrome]Onset: 959599-01-6026XgzacrelVdpgq gastrointestinal disorders (1 source)Diarrhea, unspecified; Translations: [Diarrhea, unspecified]Onset: 40-12-1934OvbfvracSbnfjsuabk (except in labor) (2 sources)Sepsis; Translations: [Sepsis, unspecified organism]Onset: 11-04-2024 EpisodicSubstance-related disorders (2 sources)Cannabis use, unspecified, uncomplicated; Translations: [CANNABIS USE UNS UNCOMPLICATED]Onset: 30-20-8062TckycdrgImjogtegjqgn (13 sources)Onset: 07-13-2024 Resolved: Results Test NameValueInterpretationReference RangeFacilityHCG, Quanton [id number], Quant<0.2Hkitqw2-3NhadzMetrohealth Cleveland Heights Medical CenterComment on above:Result Comment: Non-preg premeno <=5 Postmeno <=8 Male <=3 If HCG results do not concur with clinical observations, additional testing to confirm results is recommended.Performed By: #### APTMUT, AMTHFR #### [facility] [address] [place] [address] Compliance Nurse: Melchor Rubin MD #### LUPPRO #### [facility] [address] [place], [place] [id number] Compliance Nurse: Temo Tipton MD [address] [address] Compliance Nurse: Christian Hanley MDhCG, Quantitative, Pregnancyon 88-87-3401AHY.beta subunit QnBon [facility] Medical CenterComment on above: Non-preg premeno <=5 Postmeno <=8 Male <=3 If HCG results do not concur with clinical observations, additional testing to confirm results is recommended. Bon [facility] Medical CenterLupus Anticoagulanton 06-81-0159Mjzpke Kenneth Viper NegativeNormalNLUPMetrohealth Cleveland Heights Medical CenterComment on above:Performed By: #### APTMUT, AMTHFR #### [facility] [address] [place] [address] Compliance Nurse: Melchor Rubin MD #### LUPPRO #### [facility] [address] [place] [address] Compliance Nurse: Temo Tipton MD [facility] [address] [place] [address] [place] [address] Compliance Nurse: MURRAY Singh Gene Mutationon 77-51-8667LMATS 1286 A>C Mut HeterozygousCleveland Clinic Foundation HospitalComment on above:Performed By: #### APTMUT, AMTHFR #### [facility] [address] [place] [address] Compliance Nurse: Melchor Rubin MD #### LUPPRO #### [facility] [address] [place] [address] Compliance Nurse: Temo Tipton MD [address] [place] [phone] Compliance Nurse: MURRAY Singh 655C>T MutHeterozygousCleveland Clinic Foundation HospitalComment on above:Performed By: #### APTMUT, AMTHFR #### [facility] [address] [place] [address] Compliance Nurse: Melchor Rubin MD #### LUPPRO #### [facility] [address] [place] [address] Compliance Nurse: Temo Tipton MD [address] [place] [phone] Compliance Nurse: MURRAY Singh InterpretationSee NoteAshtabula County Medical CenterComment on above:Result Comment: (NOTE) Indication for testing: Determine genetic contribution to hyperhomocysteinemia. Compound Heterozygous MTHFR c.665C>T/c.1286A>C: One copy of each of the two MTHFR gene variants tested, c.665C>T (previously designated C677T) and c.1286A>C (previously designated L8730P) were detected. This genotype may be associated [...] has an effect on cardiovascular disease. The [employer] Practice Guidelines indicate [...] a contributing factor to hyperhomocysteinemia. Variants Tested: c.665C>T(p.Wev980Xcs) and c.1286A>C(p.Dba648Xvq). (legacy names C677T and J7925C, respectively). Clinical Sensitivity: Undefined; hyperhomocysteinemia is caused [...] developed and its performance characteristics determined by [facility]. It has not been cleared or approved by the US Food and Drug Administration. This test was performed in a CLIA certified laboratory and is intended for clinical purposes. Counseling and informed consent are recommended for genetic testing. Consent forms are available online. Performed By: [facility] [address] [place] [address] [employer] Assistant: Jose Juan Rasheed MD, PhD CLIA Number: [id number] By: #### APTMUT, AMTHFR #### [facility] [employer] [address] [place] [id number] Compliance Nurse: Melchor Rubin MD #### LUPPRO #### [facility] [address] [place] [address] Compliance Nurse: Temo Tipton MD [address] [place], [place] [phone] Compliance Nurse: MURRAY Singh SPECIMENWhole BloodNormalMetrohealth Cleveland Heights Medical CenterComment on above:Performed By: #### APTMUT, AMTHFR #### [facility] [address] [place] [address] Compliance Nurse: Melchor Rubin MD #### LUPPRO #### [facility] [address] [place] [address] Compliance Nurse: Temo Tipton MD [address] [place], [place] [phone] Compliance Nurse: Dimitri Singh [id number] Out Report(NOTE) [facility] County Medical CenterComment on above:Result Comment: APC Resistance [...] #### APTMUT, AMTHFR #### [facility] [address] [place] [address] Compliance Nurse: Melchor Rubin MD #### LUPPRO #### [facility] [address] [place] [address] Compliance Nurse: Temo Tipton MD [address] [place], [place] [phone] Compliance Nurse: AWILDA SinghT Mutation 63176ce 77-79-9323PD T17097Z VARIANT NegativeNormalMercy Greenwich HospitalComment on above:Result Comment: (NOTE) Indication for testing: Assess genetic risk for thrombosis. NEGATIVE: The Factor II, prothrombin A72587A mutation, was not detected. Other causes of [...] Smyth, Ph.D. BACKGROUND INFORMATION: Prothrombin (F2) c.*97G>A (A04477Y) Pathogenic Variant CHARACTERISTICS: The Factor II, c.*97G>A (M35797A) pathogenic variant is a common genetic risk [...] CAUSE: Homozygosity or heterozygosity for F2 c.*97G>A (K24447F). PATHOGENIC VARIANT TESTED: F2 c.*97G>A (Z98400B). CLINICAL SENSITIVITY FOR VENOUS THROMBOSIS: Approximately 10 percent. METHODOLOGY: Polymerase chain reaction and fluorescence monitoring. ANALYTICAL SENSITIVITY AND SPECIFICITY: 99 percent. LIMITATIONS: Diagnostic errors can occur due to rare sequence variations. F2 gene variants, other than c.*97G>A (Y96086M), will not be detected. This test was developed and its performance characteristics determined by [facility]. It has not been cleared or approved by the US Food and Drug Administration. This test was performed in a CLIA certified laboratory and is intended for clinical purposes. Counseling and informed consent are recommended for genetic testing. Consent forms are available online. Performed By: [facility] [address] [place] [address] Commercial [employer] Assistant: Jose Juan Rasheed MD, PhD CLIA Number: [id number] By: #### APTMUT, AMTHFR #### [facility] [address] [place] [address] Compliance Nurse: Melchor Rubin MD #### LUPPRO #### [address] [address] Compliance Nurse: Temo Tipton MD [address] [place] [address] Compliance Nurse: JENARO Singh PCR SPECIMENWhole BloodNormalMetrohealth Cleveland Heights Medical CenterComment on above:Performed By: #### APTMUT, AMTHFR #### [address] [address] Compliance Nurse: Melchor Rubin MD #### LUPPRO #### [address] [address] Compliance Nurse: Temo Tipton MD [address] [place] [address] Compliance Nurse: Christian Hanley MDLupus Anticoagulanton 85-20-6058Jiezxkaqzgterdt IgM<0.1Keckcg8.0-10.0Metrohealth [facility] Heights Medical CenterComment on above:Result Comment: Reference Range: <10.0 Negative 10.0-40.0 Equivocal >40.0 PositivePerformed By: #### APTMUT, AMTHFR #### [facility] [address] [place] [address] Compliance Nurse: Melchor Rubin MD #### LUPPRO #### [address] [address] Compliance Nurse: Temo Tipton MD [address] [place] [phone] Compliance Nurse: Morena Singh IgA2.6 APLNormal0.0-14.0[facility] HospitalComment on above:Result Comment: Reference Range: <14.0 Negative 14.0-20.0 Equivocal >20.0 Positive When results are Equivocal, it is recommended to retest after 4-6 weeks. Performed By: #### APTMUT, AMTHFR #### [facility] [address] [place], [place] [address] Compliance Nurse: Melchor Rubin MD #### LUPPRO #### [address] [id number] Compliance Nurse: Temo Tipton MD [address] [place] [address] Compliance Nurse: [place] Singh IgG0.7 GPLNormal0.0-10.0Metro[facility] Heights Medical CenterComment on above:Result Comment: Reference Range: <10.0 Negative 10.0-40.0 Equivocal >40.0 PositivePerformed By: #### RAYMONDMUT, AMTHFR #### [facility] [address] [place], [place] [id number] Compliance Nurse: Melchor Rubin MD #### LUPPRO #### [address] [id number] Compliance Nurse: Temo Tipton MD [address] [place] [address] Compliance Nurse: Christian Hanley MDHCG, Quanton 64-72-1777PNY, Iweyn030.0 mIU/mLHigh 0-7Metro[facility] Heights Medical CenterComment on above:Result Comment: Non-preg premeno <=5 Postmeno <=8 Male <=3 If HCG results do not concur with clinical observations, additional testing to confirm results is recommended.Performed By: #### APTMUT, AMTHFR #### [facility] [address] [place] [address] Compliance Nurse: Melchor Rubin MD #### LUPPRO #### [facility] [address] [place] [address] Compliance Nurse: Temo Tipton MD [address] [place], [place] [phone] Compliance Nurse: Ainsley Singhus Anticoagulanton 51-36-8399iTTG Coag (Bld) [Time]29.5 pWwdpen49.1-33.7Metro[facility] Heights Medical CenterComment on above:Result Comment: IV Heparin Therapy Range: 62.0-94.0Performed By: #### APTMUT, AMTHFR #### [facility] [address] [place] [address] Compliance Nurse: Melchor Rubin MD #### LUPPRO #### [address] [address] Compliance Nurse: Temo Tipton MD [address] [place], [place] [phone] Compliance Nurse: Christian Hanley MDINR Coag (PPP) [Relative time]0.9 {INR}NormalMetrohealth Cleveland Heights Medical CenterComment on above:Result Comment: Therapeutic Range: Moderate Anticoagulant Intensity: INR = 2.0-3.0 High Anticoagulant Intensity: INR = 2.5-3.5Performed By: #### APTMUT, AMTHFR #### [facility] [address] [place] [address] Compliance Nurse: Melchor Rubin MD #### LUPPRO #### [facility] [address] [place] [address] Compliance Nurse: Temo Tipton MD [address] [place] [address] Compliance Nurse: JENARO Singh Coag (PPP) [Time]12.6 uGhoahf65.0-15.0[facility] Medical CenterComment on above:Performed By: #### APTMUT, AMTHFR #### [facility] [address] [place] [address] Compliance Nurse: Melchor Rubin MD #### LUPPRO #### [facility] [address] [place] [address] Compliance Nurse: Temo Tipton MD [address] [place], [place] [phone] Compliance Nurse: Eriberto Singhousjoselito 61-76-9284Kivf [id number] [facility] Heights Medical CenterComment on above:Performed By: #### APTMUT, AMTHFR #### [facility] [address] [place] [address] Compliance Nurse: Melchor Rubin MD #### LUPPRO #### [place] [address] [place] [address] Compliance Nurse: Temo Tipton MD [address] [place] [address] Compliance Nurse: Christian Hanley MDHCG, Quanton 21-34-5574UZI, Aszcr643.0 mIU/mLHigh 0-7Met[facility] Heights Medical CenterComment on above:Result Comment: Non-preg premeno <=5 Postmeno <=8 Male <=3 If HCG results do not concur with clinical observations, additional testing to confirm results is recommended.Performed By: #### BHCG #### [address] [place] [address] Compliance Nurse: Christian Hanley MDType + Screenon 12-43-4404Azcm + ScreenSample Expiration 07/13/2025,2978 Arm Band Number HIDE ABO/Rh(D) O POSITIVE Antibody Screen NEGATIVENoSheltering Arms HospitalComment on above:Performed By: #### TYS #### [address] [place] [address] Compliance Nurse: Christian Hanley, CHANDRACETAMINOPHEN LEVELon 65-39-3169Qumerggnszzmg [Mass/Vol]6.4 ug/mLLow10.0-30.0Pro[facility] Defiance Regional HospitalComment on above:Order Comment: Reference ranges are for therapeutic limits.Performed By: #### SYED RAPHAEL, 1988-02, , 10275-3, 5643-2, 2157-03 #### [facility] ([id number]) [address] [place] [address] 50601IAVWCCI GLUCOSEon 25-89-3860Gsvbgib [Mass/Vol]144 mg/dLHigh 65-99Pro[facility] Regional HospitalComment on above:Performed By: #### SYED RAPHAEL, 1988-02, , 82016-7, 43-2, 2157-03 #### [facility] ([id number]) [address] [place] [address] 404[address]NUK WITH AUTO DIFFERENTIALon 93-93-6665WZLXPVYSJ ABSOLUTE COUNT (10*3/UL) BY AUTOMATED COUNT0.1 10*3/uLNormal0.0-0.2PDayton Osteopathic Hospital Comment on above:Performed By: #### SYED RAPHAEL, 1988-02, , 70943-8, 5643-2, 2157-03 #### [facility] ([id number]) [address] [place] [address] 74131UJZJAWKUT RELATIVE PERCENT BY AUTOMATED COUNT0.8 %Normal [facility] HospitalComment on above:Performed By: #### SYED RAPHAEL, 1988-02, , 85895-1, 5643-2, 2157-03 #### [facility] ([id number]) [address] [place] [address] 69128IRRCTUTLMUC DIFFERENTIAL TYPEAUTOMATED DIFFERENTIALNormal [facility] HospitalComment on above:Performed By: #### SYED RAPHAEL, 1988-02, , 73152-2, 5643-2, 2157-03 #### [facility] ([id number]) [address] [place] [address] 677[address]Pivqtkurzxd (Bld) [#/Vol]0.3 10*3/uLNormal0.0-0.4Pro[facility] HospitalComment on above:Performed By: #### IJEOMA [facility], 1988-02, , 25187-5, 5643-2, 2157-03 #### [facility] ([id number]) [address] [place] [address] 24081NHULJGMPBWF RELATIVE PERCENT BY AUTOMATED COUNT2.1 %Normal [facility] HospitalComment on above:Performed By: #### IJEOMA [facility], 1988-02, , 77069-5, 5642-2, 2157-03 #### [facility] ([id number]) [address] [place] [address] 19256Aujsdtmtwta distribution width (RBC) [Ratio]13.8 %Snssmd24.5-15 [facility] HospitalComment on above:Performed By: #### SYED RAPHAEL, 1988-02, , 98991-3, 5642-2, 2157-03 #### [facility] ([id number]) [address] [place] [address] 22405Mpsthwpafl (Bld) [Volume fraction]37.6 %Hhbgzs24-37IaqLrndokBig Bend Regional Medical CenterComment on above:Performed By: #### SYED RAPHAEL, 1988-02, , 38593-4, 5643-2, 2157-03 #### [facility] ([id number]) [address] [place] [address] 81138Hqavutcvus (Bld) [Mass/Vol]12.7 g/aUExyxtj96.7-15.5PDayton Osteopathic HospitalComment on above:Performed By: #### CBCA, CMP, 1988-02, , 96999-6, 5643-2, 2157-03 #### [facility] ([id number]) [address] [place] [address] 62910SHQCYWNVCSN ABSOLUTE COUNT (10*3/UL) BY AUTOMATED COUNT2.9 10*3/uLNormal1.0-3.5[facility] HospitalComment on above:Performed By: #### CBCA, CMP, 1988-02, , 39532-9, 5643-2, 2157-03 #### [facility] ([id number]) [address] [place] [address] 41328ZSBZLUVHBVO RELATIVE PERCENT BY AUTOMATED COUNT20.2 %Normal ProMHenry Mayo Newhall Memorial HospitalComment on above:Performed By: #### CBCA, CMP, 1988-02, , 27575-6, 43-2, 2157-03 #### [facility] ([id number]) [address] [place] [address] 96908YHY (RBC) [Entitic mass]29.9 wbEhiudh21-08HbnGvhawlBig Bend Regional Medical CenterComment on above:Performed By: #### CBCA, CMP, 1988-02, , 49928-7, 5642-2, 2157-03 #### [facility] ([id number]) [address] [place] [address] 72542FPGI (RBC) [Mass/Vol]33.8 g/eKEksouq56-81ShuHxzwkfBig Bend Regional Medical CenterComment on above:Performed By: #### CBCA, CMP, 1988-02, , 16613-5, 5643-2, 2157-03 #### [facility] ([id number]) [address] [place] [address] 09163GVT (RBC) [Entitic vol]88 xSUqkdxf16-998DjwJdstur [facility]remont HospitalComment on above:Performed By: #### CBCA, CMP, 1988-02, , 38016-0, 5643-2, 2157-03 #### [facility] ([id number]) [address] [place] [address] 54411SSXSVUNRU ABSOLUTE COUNT (10*3/UL) BY AUTOMATED COUNT0.8 10*3/uLNormal0.0-0.9ProBig Bend Regional Medical CenterComment on above:Performed By: #### CBCA, CMP, 1988-02, , 43602-5, 5643-2, 2157-03 #### [facility] ([id number]) [address] [place] [address] 25045QOAOJHWPB RELATIVE PERCENT BY AUTOMATED COUNT5.3 %Normal [facility] HospitalComment on above:Performed By: #### CBCA, CMP, 1988-02, , 64895-7, 5643-2, 2157-03 #### [facility] ([id number]) [address] [place] [address] 07821UGBIPHKOWEU ABSOLUTE COUNT BY AUTOMATED COUNT10.3 10*3/uLHigh 1.5-6.6ProBig Bend Regional Medical CenterComment on above:Performed By: #### CBCA, CMP, 1988-02, , 40566-4, 5643-2, 2157-03 #### [facility] ([id number]) [address] [place] [address] 86529WMICMFZBXBP RELATIVE PERCENT BY AUTOMATED COUNT71.6 %Normal [facility] HospitalComment on above:Performed By: #### CBCA, CMP, 1988-02, , 34470-1, 5643-2, 2157-03 #### [facility] ([id number]) [address] [place] [address] 43302Squsblfm mean volume (Bld) [Entitic vol]8.1 fLNormal7-12 [facility] HospitalComment on above:Performed By: #### CBCA, CMP, 1988-02, , 81787-5, 5643-2, 2157-03 #### [facility] ([id number]) [address] [place] [address] 23290Okkdvjkfg (Bld) [#/Vol]411 10*3/dUEdpffh271-686QgnChglmc [facility]ont HospitalComment on above:Performed By: #### IJEOMA, CMP, 1988-02, , 34205-3, 5643-2, 2157-03 #### [facility] ([id number]) [address] [place] [address] 860[address]KUP COUNT4.25 X10E12/LNormal3.8-5.2PDayton Osteopathic Hospital Comment on above:Performed By: #### IJEOMA, CMP, 1988-02, , 59151-2, 5643-2, 2157-03 #### [facility] ([id number]) [address] [place] [address] 85353WDL (Bld) [#/Vol]14.4 10*3/uLHigh4-11[facility] Comment on above:Performed By: #### CBCA, CMP, 1988-02, , 62375-1, 5643-2, 2157-03 #### [facility] ([id number]) [address] [place] [address] 66086SOVSWTTTSFGYE METABOLIC PANELon 23-77-8752Coffugw [Mass/Vol]4.1 g/dLNormal3.2-5.3PDayton Osteopathic HospitalComment on above:Performed By: #### CBCA, CMP, 1988-02, 10280-3, 99280-4, 5643-2, 2157-03 #### [facility] ([id number]) [address] [place] [address] 19255PRJ [Catalytic activity/Vol]70 U/LIbhaji06-801PbnCgjajdBig Bend Regional Medical CenterComment on above:Performed By: #### SYED RAPHAEL, 1988-02, , 56098-9, 5643-2, 2157-03 #### [facility] ([id number]) [address] [place] [address] 25619QPZ [Catalytic activity/Vol]22 U/LNormal<=31ProMedMiller Children's HospitalComment on above:Performed By: #### SYED RAPHAEL, 1988-02, , 38867-3, 5642-2, 2157-03 #### [facility] ([id number]) [address] [place] [address] 55492Ziyxg gap [Moles/Vol]10 mmol/LNormal5-15ProBig Bend Regional Medical CenterComment on above:Performed By: #### SYED RAPHAEL, 1988-02, , 05812-5, 43-2, 2157-03 #### [facility] ([id number]) [address] [place] [address] 59751GTY [Catalytic activity/Vol]22 U/LNormal<=41ProBig Bend Regional Medical CenterComment on above:Performed By: #### SYED RAPHAEL, 1988-02, , 46434-5, 5643-2, 2157-03 #### [facility] ([id number]) [address] [place] [address] 39755Ykwrsirws [Mass/Vol]0.5 mg/dLNormal0.3-1.2PDayton Osteopathic HospitalComment on above:Performed By: #### SYED RAPHAEL, 1988-02, , 99388-7, 5643-2, 2157-03 #### [facility] ([id number]) [address] [place] [address], [place] [address]Nkjmiwn [Mass/Vol]8.8 mg/dLNormal8.5-10.5PDayton Osteopathic HospitalComment on above:Performed By: #### SYED RAPHAEL, 1988-02, , 07460-5, 43-2, 2157-03 #### [facility] ([id number]) [address] [place] [address] 63831Citjtich [Moles/Vol]105 mmol/POqudjb37-662LysZljhohBig Bend Regional Medical CenterComment on above:Performed By: #### SYED RAPHAEL, 1988-02, , 74690-0, 5642-2, 2157-03 #### [facility] ([id number]) [address] [place] [address] 48262UX4 [Moles/Vol]22 mmol/PPmmnav77-99OgoQorvtfDayton Osteopathic Hospital Comment on above:Performed By: #### SYED RAPHAEL, 1988-02, , 76930-6, 5642-2, 2157-03 #### [facility] ([id number]) [address] [place] [address] 23216Cvivzlnggf [Mass/Vol]0.86 mg/dLNormal0.40-1.00[facility] HospitalComment on above:Result Comment: METHOD TRACEABLE TO IDMS STANDARD Performed By: #### SYED RAPHAEL, 1988-02, , 90610-8, 5643-2, 2157-03 #### [facility] ([id number]) [address] [place] [address] 92291HBKY (CKD-EPI) NON-RACE DEPENDENT>^90Normal>=60[facility] Regional HospitalComment on above:Result Comment: eGFR not reported due to non- numeric value for Creatinine. Reported eGFR is based on the CKD-EPI 2020 equation that does not use a race coefficient.Performed By: #### SYED RAPHAEL, 1988-02, , 51957- 0, 5642-2, 2157-03 #### [facility] ([id number]) [address] [place] [address] 68885Vvzelbv [Mass/Vol]133 mg/gOWjoc52-47XstZtetbdBig Bend Regional Medical Center Comment on above:Performed By: #### SYED RAPHAEL, 1988-02, , 55111-2, 5642-2, 2157-03 #### [facility] ([id number]) [address] [place] [address] 77538Jqazyktaq [Moles/Vol]4.3 mmol/LNormal3.5-5.0ProBig Bend Regional Medical CenterComment on above:Performed By: #### SYED RAPHAEL, 1988-02, , 58332-2, 5642-11, 2157-03 #### [facility] ([id number]) [address] [place] [address] 46183Aayzztl [Mass/Vol]7.7 g/dLNormal6.0-8.0ProBig Bend Regional Medical CenterComment on above:Performed By: #### SYED RAPHAEL, 1988-02, , 22682-0, 5642-11, 2157-03 #### [facility] ([id number]) [address] [place] [address] 03866Nilvwe [Moles/Vol]137 mmol/MLrcgfw367-485TvmXfrtka [facility]rem[facility] HospitalComment on above:Performed By: #### SYED RAPHAEL, 1988-02, , 18624-2, 5642-, 2157-03 #### [facility] ([id number]) [address] [place] [address] 89833Gbnr nitrogen [Mass/Vol]8 mg/dLNormal5-23ProBig Bend Regional Medical CenterComment on above:Performed By: #### SYED RAPHAEL, 1988-02, , 63963-1, 5643-2, 2157-6 #### [facility] ([id number]) [address] [place] [address], FIRST F[place] [place], [place] [address]UP BRAIN WO CONT STROKE ALERTon 73-14-9053SU BRAIN WO CONT STROKE ALERTCT BRAIN WO [...] Abhishek Zhang MD on 07/04/2025 11:09 AMNormalProMedica Bellwood General HospitalCT CTA CAROTIDon 66-14-0987YH CTA CAROTIDCT CTA CAROTID History: Confusion. Headache. [...] by Abhishek Zhang MD on 07/04/2025 11:27 AMNormalProMedica Defiance Regional HospitalCT CTA HEADon 29-16-0068DS CTA HEADCT CTA HEAD CT CTA HEAD CLINICAL INFORMATION: confusion, headache vomiting. COMPARISON: None. PROCEDURE: Routine CTA [place] was obtained after the uncomplicated intravenous administration of contrast. Sagittal and coronal reformatted images with 3-D Maximum intensity projection reconstructionsof the [place] constructed under concurrent physician supervision [...] by Rajendra Muro MD on 07/04/2025 11:25 [facility]ullDRUG SCREEN, URINEon 16-61-5193UMTUDDGOZVV/METHAMPNegativeNormalNegative [facility] HospitalComment on above:Order Comment: Confirmation available upon request.Result Comment: AMPH/METH screening cut off = 1000 ng/mLPerformed By: #### CBCA, CMP, 1988-5, 06426-6, 56726-5, 5643-2, 2157-6 #### [facility] ([id number]) [address] [place], [place] [address]SNegativeNormalNegativeProMedica Defiance Regional Hospital Comment on above:Order Comment: Confirmation available upon request.Result Comment: Barbiturates screening cut off value = 200 ng/mLPerformed By: #### SYED RAPHAEL, 1988-02, 41362-4, 45833-0, 5643-2, 2156-6 #### [facility] ([id number]) [address] [place] [address] [place] [address]NVIXFTMUBPFWQGUIchwhojkZrauqjOqhtddneZbcFdaukn [facility] Comment on above:Order Comment: Confirmation available upon request.Result Comment: Benzodiazepines screening cut off value = 200 ng/mLPerformed By: #### SYED RAPHAEL, 1988-02, , 29911-0, 5643-2, 6 #### [facility] ([id number]) [address] [place] [address] [place] [address]EVOVQVGLWHENQkgdllybNpgecqilSegjrhuhXvpHctzyn [facility] Comment on above:Order Comment: Confirmation available upon request.Result Comment: Cannabinoids/THC screening cut off value = 50 ng/mLPerformed By: #### SYED RAPHAEL, 1988-02, , 82718-4, 5643-2, 2157-03 #### [facility] ([id number]) [address] [place] [address] [place] [address]TABGMSZ METABOLITENegativeNormalNegativeProMedica Defiance Regional HospitalComment on above:Order Comment: Confirmation available upon request. Result Comment: Cocaine screening cut off value = 300 ng/mLPerformed By: #### SYED RAPHAEL, 1988-02, , 21985-5, 5643-2, 2156-6 #### [facility] ([id number]) [address] [place] [address] [id number] Fremont HospitalComment on above:Order Comment: Confirmation available upon request.Result Comment: Ecstasy screening cut off value = 500 ng/mLPerformed By: #### SYED RAPHAEL, 1988-02, 68219-6, 32165-1, 5643-2, 2157-03 #### [facility] ([id number]) [address] [place] [id number] [facility] Comment on above:Order Comment: Confirmation available upon request.Result Comment: Methadone screening cut off value = 300 ng/mL.Performed By: #### IJEOMA, SYED, 1988-02, , 29152-3, 5643-2, 2157-03 #### [facility] ([id number]) [address] [place] [address] 11710RGQYUCKAbkdvjhaXsjnfzAtugrqioIpnJnbpxb [facility]ont HospitalComment on above:Order Comment: Confirmation available upon request.Result Comment: Opiates screening cut off value = 300 ng/mL This test is used for the detection of codeine, hydrocodone (>1000 ng/mL), morphine and hydromorphone (>900 ng/mL) in urine.Performed By: #### SYED RAPHAEL, 1988-02, , 74678-0, 5643-2, 2157-03 #### [facility] ([id number]) [address] [place] [address] [place] 31374KQSLOULBOYslwigfsQehessVhtfbwixZqdJsitwy [facility] Comment on above:Order Comment: Confirmation available upon request.Result Comment: Oxycodone screening cut off value = 300 ng/mL This test is used for the detection of oxycodone and oxymorphone in urine.Performed By: #### SYED RAPHAEL, 1988-02, , 79943-9, 5643-2, 2157-03 #### [facility] ([id number]) [address] [place] [address] [place] 32939JXMCOCXYOGLYYQgcwpbrrDxjnibJbjaxjgbZkdKfaukg [facility] Comment on above:Order Comment: Confirmation available upon request.Result Comment: Phencyclidine screening cut off value = 25 ng/mLPerformed By: #### SYED RAPHAEL, 1988-02, , 75410-1, 5642-2, 2157-03 #### [facility] ([id number]) [address] [place] [address] 01888ILDTGOEvl 39-18-2018Qrbrkiv [Mass/Vol]mg/dLNormal<=0.080 [facility] HospitalCommymichigan medical center clare on above:Result Comment: This report is intended for use in clinical monitoring or management of patients.Performed By: #### SYED RAPHAEL, 1988-02, , 26525-9, 5642-11, 2157-03 #### [facility] ([id number]) [address] [place] [address] 45067NCY-TNQY, SERUMon 36-98-2197PCD.beta subunit Qg8689 m[IU]/mLNormalProMedica Bellwood General HospitalCommymichigan medical center clare on above:Order Comment: WEEKS (SINCE LMP) MIU/mL3 WEEKS 5 - 504 WEEKS 5 - 4265 WEEKS 18 - 7,3406 WEEKS 1,080- 56,5007-8 WEEKS 7,650 - 229,0009-12 WEEKS 25,700 - 288,57405-63 WEEKS 13,300 - 254,84666-70 WEEKS4,060 - 165,85869-09 WEEKS 3,640 - 117,000MALES AND NON- FEMALES - <5 MIU/mLThis test has been FDA approved for use inpregnancy only. Elevated levels are notnecessarily diagnostic for trophoblasticor nontrophoblastic neoplasms. Performed By: #### SYED RAPHAEL, 1988-02, , 00905-6, 5643-2, 2157-03 #### [facility] ([id number]) [address] [place] [address] 54525VHVTVFNYHY A1Con 85-71-6706Mjnmdpb [Mass/Vol]94 mg/dLNormal [facility] HospitalComment on above:Performed By: #### SYED RAPHAEL, 1988-02, , 31362-8, 5643-2, 2157-03 #### [facility] ([id number]) [address] [place] [address] 08171GaC3i (Bld) [Mass fraction]4.9 %Normal4.4-5.6ProBig Bend Regional Medical CenterComment on above:Result Comment: ADA Guidelines Result HgbA1c Normal : less than 5.7 % Prediabetes : 5.7 % to 6.4 % Diabetes : > 6.4 % Use with caution in patients with abnormal hemoglobin variants as the half-life of red blood cells and in vivo glycation rates are affected.Performed By: #### SYED RAPHAEL, 1988-02, , 27813-7, 56-2, 2157-03 #### [facility] ([id number]) [address] [place] [address] 98164DUUFRAGRPqo 50-71-0264Nqxsfmbfe [Mass/Vol]2.3 mg/dLNormal 1.8-2.6[facility] HospitalComment on above:Performed By: #### SYED RAPHAEL, 1988-02, , 18806-5, 5643-2, 2157-03 #### [facility] ([id number]) [address] [place] [address] 61149METP NURSING URINE MACROSCOPIC UAon 57-52-7779JQIJGSYZL KRISTA NegativeNormalNegativeProBig Bend Regional Medical CenterComment on above:Performed By: #### SYED RAPHAEL, 1988-02, , 59293-4, 5643-2, 2157-03 #### [facility] ([id number]) [address] [place] [address] 42761DKKYJ/HGB NURNegativeNormalNegUpper Valley Medical Center Comment on above:Performed By: #### IJEOMA, CMP, 1988-02, , 56490-5, 5643-2, 2157-03 #### [facility] ([id number]) [address] [place] [address] [place] 03992LDKSLON NURNegativeNormalNegativeProMedica Defiance Regional Hospital Comment on above:Performed By: #### IJEOMA, CMP, 1988-02, , 61550-3, 5643-2, 2157-03 #### [facility] ([id number]) [address] [place] [address] [place] 27405CHHGIZZ NURNegativeNormalNegUpper Valley Medical Center Comment on above:Performed By: #### IJEOMA, CMP, 1988-02, , 59703-6, 5643-2, 2157-03 #### [facility] ([id number]) [address] [place] [address] [place] 00330CERJWYEIK ESTERASE NURNegativeDeaconess Incarnate Word Health SystemalNegUpper Valley Medical CenterComment on above:Performed By: #### IJEOMA, CMP, 1988-02, , 43833-1, 5643-2, 2157-03 #### [facility] ([id number]) [address] [place] [address] [place] 85894VCSKAXI NURNegativeNormalNegativeProMedica Defiance Regional Hospital Comment on above:Performed By: #### ANISHA, CMP, 1988-02, , 45962-1, 5643-2, 2157-03 #### [facility] ([id number]) [address] [place] [address] [place] 40708PD NUR7.7Oxvzww9.0, 6.0, 6.5, 7.0, 7.5, 8.0, 8.5, 5.5[facility] HospitalComment on above:Performed By: #### SYED RAPHAEL, 1988-02, , 12074-4, 5643-2, 2157-03 #### [facility] ([id number]) [address] [place] [address] 15691MWBZAPN NUR30 mg/dLAbnormalNegativeProMedica [facility]iance [facility] Hospital Comment on above:Performed By: #### SYED RAPHAEL, 1988-02, , 75928-8, 5642-2, 2157-03 #### [facility] ([id number]) [address] [place] [address] 00473GODJLGPO GRAVITY NUR1.556Zzcgqf2.010, 1.015, 1.020, 1.025 [facility] HospitalComment on above:Performed By: #### IJEOMA [facility], 1988-02, , 66071-3, 5642-2, 2157-03 #### [facility] ([id number]) [address] [place] [address] 24279DLJKPKJAULZD NUR0.2 E.U./dLNormalProMedica [facility] Comment on above:Performed By: #### SYED RAPHAEL, 1988-02, , 04511-6, 2, 2157-03 #### [facility] ([id number]) [address] [place] [address] 39426RSDX , URINE (NUCG)on 52-95-8556Zrsn HCG ( test) Ql (U)PositiveAbnormalNegative, IndeterminateProMedica Defiance Regional Hospital Comment on above:Performed By: #### SYED RAPHAEL, 1988-02, , 89098-9, 5643-2, 2157-03 #### [facility] ([id number]) [address] [place] [address] 47761JTVDVJGJNU LEVELon 25-48-9891FSSGHWJHSE<^4.8Kwooaz0.0-25.0 [facility] HospitalComment on above:Order Comment: Reference ranges are for therapeutic limits.Performed By: #### SYED RAPHAEL, 1988-02, , 06228-2, 5643-2, 2157-03 #### [facility] ([id number]) [address] [place] [address] 26716TLWU I, HIGH SENSITIVITY 1 HOURon 58-51-5364CBNYXXLN I, HIGH SENSITIVITY2 ng/LNormal<16[facility] HospitalComment on above:Performed By: #### SYED RAPHAEL, 1988-02, , 66683-4, 56-2, 2157-03 #### [facility] ([id number]) [address] [place] [address] 08408MKKMDLOA I, HIGH SENSITIVITY 0 HOURon 00-78-4732EFQQYWKJ I, HIGH SENSITIVITY<^2Normal<16[facility] HospitalComment on above:Performed By: #### SYED RAPHAEL, 1988-02, , 97502-9, 56-2, 2157-03 #### [facility] ([id number]) [address] [place] [address], [place] [address]REAAJ CULTUREon 62-27-0765Akskkjcn identified Cx Nom (U)CULTURE RESULTS <10,000 ORGANISMS/mL NORMAL URO GENITAL FLORANormalProMedica Defiance [facility] Hospital Comment on above:Performed By: #### SYED RAPHAEL, 1988-02, , 83551-7, 5642-2, 2157-03 #### [facility] ([id number]) [address] [place] [address] 89118EA PREG LESS THAN 14 WKS WITH TRANSVAGINALon 72-37-7370UC PREG LESS THAN 14 WKS WITH TRANSVAGINALUS [...] Trimester. N Engl J Med. 2013 Jul 10;369(15):1443-54. Finalized by Subhash Hollis MD on 07/04/2025 1:02 [facility] Medical CenterUrine Cultureon 51-79-6426Rbmtlckb identified Cx Nom (U)>100,000 colonies/ml mixed bacterial skin contaminants 2 Days PERFORMED BY: [address] [address] PATHOLOGIST HRIS COORDINATOR JOSE PAULINO M.D.[facility] Hospital Physician GroupComment on above: Performed By: #### CUU #### [address] [address] USAED Clinical Summaryon [id number] Clinical Summary [address] [address] ED Clinical Summary Person Information Name: Yolanda Villanueva [facility] Age: 25 Years : 2000 Sex: Female PCP: Marital Status: Phone: Race: Ethnicity: Language: Thai Visit Reason: Hematuria; vomiting blood Acuity: 3 [...] Follow up: Discharge Orders: Patient Education Information: [facility] Poison Help line: . [facility] Hotline: [place] Tobacco Quit Line: [place], [place]) [address]: [phone] [place], [place]) [address]: [phone] [facility] [address] [place], [place]: [phone] [facility] HospitalCBC with Auto Differentialon 46-58-6793Iekfqekls (Bld) [#/Vol]0.07 10*3/uLBon Secours Mercy HealthBasophils/100 WBC (Bld)0 %0 - 2 %[facility] HealthEosinophils (Bld) [#/Vol][facility] Eosinophils/100 WBC (Bld)0 %Low1 - 4 %[facility] Mercy HealthErythrocyte distribution width (RBC) [Ratio]13.2 %11.8 - 14.4 %[facility] Hematocrit (Bld) [Volume fraction]36.3 %36.3 - 47.1 %[facility] Hemoglobin (Bld) [Mass/Vol]12.4 g/dL11.9 - 15.1 g/dLBon [facility] Immature granulocytes (Bld) [#/Vol]0.13 10*3/uLBon [facility] Medical CenterImmature granulocytes/100 WBC (Bld)1 %Wjqn6GerRiverside Tappahannock HospitalInterpretation and review of laboratory resultsAbnormalBon [facility] Medical CenterLymphocytes/100 WBC (Bld)9 %Low24 - 43 %[facility]ann[facility] HospitalLymphocytes/100 WBC (Bld)1.61 %[facility] HospitalH (RBC) [Entitic mass]30.4 pg25.2 - 33.5 pgCarilion Franklin Memorial HospitalHC (RBC) [Mass/Vol]34.2 g/dL28.4 - 34.8 g/dLBon [facility] Medical CenterMCV (RBC) [Entitic vol]89.0 fL82.6 - 102.9 fLRiverside Tappahannock Hospital Monocytes/100 WBC (Bld)3 %3 - 12 %[facility] HospitalMonocytes/100 WBC (Bld)0.59 %[facility] HospitalNeutrophils/100 WBC (Bld)87 %High36 - 65 %[facility] HospitalNucleated RBC/100 WBC (Bld) [Ratio]0.0 %0.0 per 100 WBCRiverside Tappahannock HospitalPlatelet mean volume (Bld) [Entitic vol]9.6 fL8.1 - 13.5 fL [facility] HospitalPlatelets (Bld) [#/Vol]431 10*3/uLBon [facility] Medical CenterRBC (Bld) [#/Vol]4.08 10*6/uL3.95 - 5.11 m/uLRiverside Tappahannock Hospital Segmented neutrophils/100 WBC (Bld)15.72 %[facility]Spr[facility] Hospital CenterWBC other (Bld) [#/Vol]18.1HighValley HealthCBC with Diffon 11-76-2773Toi. Basophil0.07 k/uLNormal0.00-0.20[facility] Comment on above:Performed By: #### CDP, CP #### [address] [place] [address] Compliance Nurse: Juana Singh. Eosinophil<0.41Sylkts3.00-0.44MerSelect Medical Specialty Hospital - Akron HospitalComment on above:Performed By: #### CDP, CP #### [address] [place], [place] [address] Compliance Nurse: MDAbs. FranciscoImm.Granulocyte0.13 k/uLNormal0.00-0.30[facility] HospitalComment on above:Performed By: #### CDP, CP #### [address] [place], [place] [address] Compliance Nurse: Juana Singh.Neutrophil (Seg)15.72 k/uLHigh1.50-8.10[facility] HospitalComment on above:Performed By: #### CDP, CP #### [address] [place], [place] [address] Compliance Nurse: Christian Hanley MDBasophils/100 WBC (Bld)0 %Normal0-2[facility]wood HospitalComment on above:Performed By: #### CDP, CP #### [address] [place], [place] [address] Compliance Nurse: Christian Hanley MDEosinophils/100 WBC (Bld)0 %Low1-4[facility] HospitalComment on above:Performed By: #### CDP, CP #### [address] [place], [facility]83 Compliance Nurse: Christian Hanley MDErythrocyte distribution width (RBC) [Ratio]13.2 % Aieqsn27.8-14.4[facility] Medical CenterComment on above:Performed By: #### CDP, CP #### [address] [place] [address] Compliance Nurse: Christian Hanley MDHematocrit (Bld) [Volume fraction]36.3 %Normal 36.3-47.1MThe [facility] of [facility] Center HospitalComment on above:Performed By: #### CDP, CP #### [address] [place], [facility]83 Compliance Nurse: Christian Hanley MDHemoglobin (Bld) [Mass/Vol]12.4 g/dLNormal 11.9-15.1MThe [facility] of [facility] HospitalComment on above:Performed By: #### CDP, CP #### [address] [place], [facility]83 Compliance Nurse: Jessy Singhmature granulocytes/100 WBC (Bld)1 %Jfwz2GhjukWayne Hospital HospitalComment on above:Performed By: #### CDP, CP #### [address] [place], [place] [id number] Compliance Nurse: Frank Singhmphocytes (Bld) [#/Vol]1.61 10*3/uLNormal 1.10-3.70[facility] Medical CenterComment on above:Performed By: #### CDP, CP #### [address] [place], [facility]83 Compliance Nurse: Frank Singhmphocytes/100 WBC (Bld)9 %Nmk82-88SgnarMetrohealth Cleveland Heights Medical CenterComment on above:Performed By: #### CDP, CP #### [address] [place], [place] 077[address]83 Compliance Nurse: JOSÉ LUIS SinghCH (RBC) [Entitic mass]30.4 tgIacsir14.2-33.5 [facility] HospitalComment on above:Performed By: #### CDP, CP #### [address] [place] [address] Compliance Nurse: JOSÉ LUIS SinghCHC (RBC) [Mass/Vol]34.2 g/jHHgerqa08.4-34.8[facility] Medical CenterComment on above:Performed By: #### CDP, CP #### [address] [place], [place] [id number] Compliance Nurse: JOSÉ LUIS SinghCV (RBC) [Entitic vol]89.0 sBLskrxf21.6-102.9 [facility] Medical CenterComment on above:Performed By: #### CDP, CP #### [address] [place], [place] [id number] Compliance Nurse: JOSÉ LUIS Singhonocytes (Bld) [#/Vol]0.59 10*3/uLNormal0.10-1.20 [facility] CenterComment on above:Performed By: #### CDP, CP #### [address] [place], [place] 1604483 Compliance Nurse: JOSÉ LUIS Singhonocytes/100 WBC (Bld)3 %Normal3-12[facility] Medical CenterComment on above:Performed By: #### CDP, CP #### [address] [place], [place] 3534783 Compliance Nurse: Christian Hanley MDNeutrophil (Seg)87 %Bbhv11-67FoklyMetrohealth Cleveland Heights Medical Center Comment on above:Performed By: #### CDP, CP #### [address] [place], [place] 560[address]83 Compliance Nurse: Christian Hanley MDNRBC Automated0.0 per 100 WBCNormal0.0[facility] Medical CenterComment on above:Performed By: #### CDP, CP #### [address] [place], [facility]83 Compliance Nurse: Benton Singh mean volume (Bld) [Entitic vol]9.6 fL Normal8.1-13.5[facility] HospitalComment on above:Performed By: #### CDP, CP #### [address] [place] [address] Compliance Nurse: Elvis Singh (Bld) [#/Vol]431 10*3/lNUjswdo052-141 [facility] HospitalComment on above:Performed By: #### CDP, CP #### [address] [place] [address] Compliance Nurse: SAM SinghBC (Bld) [#/Vol]4.08 10*6/uLNormal3.95-5.11[facility] HospitalComment on above:Performed By: #### CDP, CP #### [address] [place], [place] [phone] Compliance Nurse: NEY SinghBC (Bld) [#/Vol]18.1 10*3/uLHigh3.5-11.3[facility] HospitalComment on above:Performed By: #### CDP, CP #### [address] [place] [address] Compliance Nurse: JESSICA Singhomp Metabolic Profon 00-28-8331Oxwyimp [Mass/Vol] 4.9 g/dLNormal3.5-5.2[facility] HospitalComment on above:Performed By: #### CDP, CP #### [address] [place], [place] 7071383 Compliance Nurse: Christian Hanley MDAlbumin/Glob Ratio1.5Ambxqa1.0-2.5MerSelect Medical Specialty Hospital - [facility] HospitalComment on above:Performed By: #### CDP, CP #### [address] [place] [address] Compliance Nurse: Colt Singh Phos83 U/OCbvstb21-792HshlbMetrohealth Cleveland Heights Medical CenterComment on above:Performed By: #### CDP, CP #### [address] [place] [address] Compliance Nurse: Christian Hanley MDALT [Catalytic activity/Vol]16 U/PLkhhli96-86Zswts [facility]in HospitalComment on above:Performed By: #### CDP, CP #### [address] [place] [address] Compliance Nurse: Inez Singh gap [Moles/Vol]18 mmol/LHigh9-16MerSelect Medical Specialty [facility] HospitalComment on above:Performed By: #### CDP, CP #### [address] [place] [address] Compliance Nurse: Christian Hanley MDAST [Catalytic activity/Vol]22 U/CIjdayh51-51MluwwMetrohealth Cleveland Heights Medical CenterComment on above:Performed By: #### CDP, CP #### [address] [place] [address] Compliance Nurse: Christian Hanley MDBilirubin [Mass/Vol]0.5 mg/dLNormal0.00-1.20MerSelect [facility] HospitalComment on above:Performed By: #### CDP, CP #### [address] [place] [address] Compliance Nurse: Christian Hanley MDBUN/CRE Idrbm6Rez9-24Zegyw [facility] HospitalComment on above:Performed By: #### CDP, CP #### [address] [place] [address] Compliance Nurse: JESSICA Singhalcium [Mass/Vol]9.7 mg/dLNormal8.6-10.4MerSelect Medical Specialty Hospital [facility] HospitalComment on above:Performed By: #### CDP, CP #### [address] [place] [address] Compliance Nurse: JESSICA Singhhloride [Moles/Vol]101 mmol/QSwkats74-598XvjxuMetrohealth Cleveland Heights Medical CenterComment on above:Performed By: #### CDP, CP #### [address] [place] [address] Compliance Nurse: Christian Hanley MDCO2 [Moles/Vol]21 mmol/XMqewbq11-88QrhbfMetrohealth Cleveland Heights Medical CenterComment on above:Performed By: #### CDP, CP #### [address] [place] [address] Compliance Nurse: JESSICA Singhreatinine [Mass/Vol]0.9 mg/dLNormal0.50-0.90[facility] Medical CenterComment on above:Performed By: #### CDP, CP #### [address] [place], [place] [phone] Compliance Nurse: Christian Hanley MDGFR/1.73 sq M.predicted among non-blacks MDRD (S/P/Bld) [Vol rate/Area]mL/min/{1.73_m2}Normal>60[facility] Medical CenterComment on above:Result Comment: These results are not [...] secretion.Performed By: #### CDP, CP #### [address] [place], [place] [phone] Compliance Nurse: Christian Hanley MDGlucose [Mass/Vol]152 mg/cVBcxh79-42Vdcna Kirkwood HospitalComment on above:Performed By: #### CDP, CP #### [address] [place] [address] Compliance Nurse: AWILDA Singhotassium [Moles/Vol]3.8 mmol/LNormal3.7-5.3[facility] HospitalComment on above:Result Comment: Specimen hemolysis has exceeded the interference as defined by Macy. Value may be falsely increased. Suggest recollection if clinically indicated.Performed By: #### CDP, CP #### [address] [place], [place] 1750983 Compliance Nurse: Christian Hanley MDProtein [Mass/Vol]8.4 g/dLNormal6.6-8.7MerVeterans Administration Medical CenterComment on above:Performed By: #### CDP, CP #### [address] [place], [facility]83 Compliance Nurse: FREYA Singhodium [Moles/Vol]140 mmol/FSqpbmh955-354Wijft [facility] HospitalComment on above:Performed By: #### CDP, CP #### [address] [place], [place] [phone] Compliance Nurse: Christian Hanley MDUrea nitrogen [Mass/Vol]7 mg/dLNormal6-20MerVeterans Administration Medical CenterComment on above:Performed By: #### CDP, CP #### [address] [place], [place] [phone] Compliance Nurse: JESSICA Singhomprehensive Metabolic Panelon 12-61-4171Ripisxr [Mass/Vol]4.9 g/dL3.5 - 5.2 g/dLBon [facility] Medical CenterAlbumin/Globulin [Mass ratio]1.4 {ratio}1.0 - 2.5Bon [facility] Medical CenterALP [Catalytic activity/Vol]83 U/L35 - 104 U/LBon [facility] Medical CenterALT [Catalytic activity/Vol]16 U/L10 - 35 U/LBon [facility] Medical CenterAnion gap [Moles/Vol]18 mmol/LHigh9 - 16 mmol/LBon SecMorrow County HospitalAST [Catalytic activity/Vol]22 U/L10 - 35 U/LBon SecMorrow County HospitalBilirubin [Mass/Vol]0.5 mg/dL0.00 - 1.20 mg/dLBon [facility] Medical CenterCalcium [Mass/Vol]9.7 mg/dL8.6 - 10.4 mg/dLBon [facility] Chloride [Moles/Vol]101 mmol/L98 - 107 mmol/LBon [facility] Medical CenterCO2 [Moles/Vol]21 mmol/L20 - 31 mmol/LBon [facility] Medical CenterCreatinine [Mass/Vol] 0.9 mg/dL0.50 - 0.90 mg/dLBon [facility] Medical CenterEst, Glom Filt Rate- PINFBon [facility] Medical CenterComment on above: These results are not intended [...] that affects renal tubular secretion. Glucose [Mass/Vol]152 mg/nUWdsl47 - 99 mg/dLBon [facility] Interpretation and review of laboratory resultsAbnormalRiverside [facility] Potassium [Moles/Vol]3.8 mmol/L3.7 - 5.3 mmol/LBon [facility] Medical CenterComment on above:Specimen hemolysis has exceeded the interference as defined by Macy. Value may be falsely increased. Suggest recollection if clinically indicated. Protein [Mass/Vol]8.4 g/dL6.6 - 8.7 g/dLBon [facility] Medical CenterSodium [Moles/Vol]140 mmol/L136 - 145 mmol/LBon [facility] Medical CenterUrea nitrogen [Mass/Vol]7 mg/dL6 - 20 mg/dLBon [facility] Medical CenterUrea nitrogen/Creatinine [Mass ratio]8 mg/mgLow9 - 20Bon [facility] Medical CenterDrug Scr, Abuse, Uron 74-73-9782Xgzkftcwfkc(s),UrPositiveAbnormalNEGMercy Kirkwood HospitalComment on above:Result Comment: Cutoff: 50 ng/mlPerformed By: #### APTMUT, AMTHFR #### [facility] [address] [place] [address] Compliance Nurse: Melchor Rubin MD #### LUPPRO #### [address] [address] Compliance Nurse: Temo Tipton MD [address] [place], [place] 154[address]83 Compliance Nurse: Marline Singhtamine(s),UrNegativeNormalNEGMercy Greenwich HospitalCommymichigan medical center clare on above:Result Comment: Cutoff: 1000 ng/mLPerformed By: #### APTMUT, AMTHFR #### [facility] [address] [place] [address] Compliance Nurse: Melchor Rubin MD #### LUPPRO #### [address] [address] Compliance Nurse: Temo Tipton MD [address] [place], [place] 417[address]83 Compliance Nurse: Christian Hanley MDBarbiturate(s),UrNegativeNormalNEGMercy Kirkwood HospitalCommymichigan medical center clare on above:Result Comment: Cutoff: 200 ng/mlPerformed By: #### APTMUT, AMTHFR #### [facility] [address] [place] [address] Compliance Nurse: Melchor Rubin MD #### LUPPRO #### [address] [address] Compliance Nurse: Temo Tipton MD [address] [place], [place] 256[address]83 Compliance Nurse: Christian Hanley MDBenzodiazepine(s)NegativeNormalNEGMercy Kirkwood HospitalComment on above:Result Comment: Cutoff: 200 ng/mlPerformed By: #### APTMUT, AMTHFR #### [facility] [address] [place] [address] Compliance Nurse: Melchor Rubin MD #### LUPPRO #### [facility] [address] [place] [address] Compliance Nurse: Temo Tipton MD [address] [place], [place] 0864483 Compliance Nurse: JESSICA Singhocaine MetaboliteNegativeNormalNEGMetrohealth Cleveland Heights Medical CenterCommymichigan medical center clare on above:Result Comment: Cutoff: 300 ng/mlPerformed By: #### APTMUT, AMTHFR #### [facility] [address] [place] [address] Compliance Nurse: Melchor Rubin MD #### LUPPRO #### [address] [address] Compliance Nurse: Temo Tipton MD [address] [place] [address] Compliance Nurse: Christian Hanley MDFentanyl, UrineNegativeNormalNEGMetrohealth Cleveland Heights Medical CenterCommymichigan medical center clare on above:Result Comment: Cutoff: 5 ng/mlPerformed By: #### APTMUT, AMTHFR #### [facility] [address] [place] [address] Compliance Nurse: Melchor Rubin MD #### LUPPRO #### [facility] [address] [place], [place] [id number] Compliance Nurse: Temo Tipton MD [address] [place] [address] Compliance Nurse: Christian Hanley MDInterpretive InfoThis method is a screening test to detect only these drug classes as part of aNormalMetrohealth Cleveland Heights Medical CenterCommymichigan medical center clare on above:Result Comment: medical workup. Confirmatory testing by another method should be ordered if clinically indicated.Performed By: #### APTMUT, AMTHFR #### [facility] [address] [place] [address] Compliance Nurse: Melchor Rubin MD #### LUPPRO #### [facility] [address] [place] [address] Compliance Nurse: Temo Tipton MD [address] [place], [place] [address]83 Compliance Nurse: JOSÉ LUIS Singhethadone Ql (U)NegativeNormalNEGMercy Kirkwood HospitalComment on above:Result Comment: Cutoff: 300 ng/mlPerformed By: #### APTMUT, AMTHFR #### [facility] [address] [place] [address] Compliance Nurse: Melchor Rubin MD #### LUPPRO #### [address] [address] Compliance Nurse: Temo Tipton MD [address] [place] [address] Compliance Nurse: Christian Hanley MDOpiate(s), UrNegativeNormalNEGMerSelect Medical Specialty Hospital - Akron HospitalComment on above:Result Comment: Cutoff: 300 ng/ml Note: The Opiate screen is not intended to detect Oxycodone.Performed By: #### APTMUT, AMTHFR #### [facility] [address] [place] [address] Compliance Nurse: Melchor Rubin MD #### LUPPRO #### [facility] [address] [place] [address] Compliance Nurse: Temo Tipton MD [address] [place] [address] Compliance Nurse: Christian Hanley MDOxycodone, UrineNegativeNormalNEGMercy Kirkwood HospitalComment on above:Result Comment: Cutoff: 100 ng/mlPerformed By: #### APTMUT, AMTHFR #### [facility] [address] [place] [address] Compliance Nurse: Melchor Rubin MD #### LUPPRO #### [address] [address] Compliance Nurse: Temo Tipton MD [address] [place] [address] Compliance Nurse: Rey Singhcyclidine, UrNegativeNormalNEGMerVeterans Administration Medical CenterComment on above:Result Comment: Cutoff: 25 ng/mlPerformed By: #### APTMUT, AMTHFR #### [facility] [address] [place] [address] Compliance Nurse: Melchor Rubin MD #### LUPPRO #### [address] [id number] Compliance Nurse: Temo Tipton MD [address] [place] [address] Compliance Nurse: Christian Hanley MDHCG, Quanton [id number], Aokhz280.0 mIU/mLHigh 0-7Metro[facility] Heights Medical CenterCommymichigan medical center clare on above:Result Comment: Non-preg premeno <=5 Postmeno <=8 Male <=3 If HCG results do not concur with clinical observations, additional testing to confirm results is recommended.Performed By: #### APTMUT, AMTHFR #### [facility] [address] [place] [address] Compliance Nurse: Melchor Rubin MD #### LUPPRO #### [address] [id number] Compliance Nurse: Temo Tipton MD [address] [place], [place] 365[address]83 Compliance Nurse: Christian Hanley MDHCG, Quantitative, Pregnancyon 43-18-8355KQQ.beta subunit Qn202.0 m[IU]/mLHighRiverside Tappahannock HospitalComment on above: Non-preg premeno <=5 Postmeno <=8 Male <=3 If HCG results do not concur with clinical observations, additional testing to confirm results is recommended. Interpretation and review of laboratory resultsAbnormalBon [facility] Bon [facility] Medical CenterLactic Acidon 97-34-3646Hduyrbp (BldV) [Moles/Vol]1.6 mmol/L0.5 - 2.2 mmol/LBon [facility] Medical CenterLactate [Moles/Vol]1.6 mmol/L Normal0.5-2.2Mercy Greenwich HospitalComment on above:Performed By: #### APTMUT, AMTHFR #### [facility] [address] [place] [address] Compliance Nurse: Melchor Rubin MD #### LUPPRO #### [facility] [address] [place], [place] 606[address] Compliance Nurse: Temo Tipton MD [facility] [address] [facility] [place] [address] Compliance Nurse: Christian Hanley MDNo Panel Informationon [id number] [facility] Medical CenterUS OB TRANSVAGINALon 89-92-8031UD OB TRANSVAGINALEXAMINATION: FIRST TRIMESTER OBSTETRIC ULTRASOUND 06/20/2025 [...] Sac: Not definitively identified. Embryo(<11wk) /Fetus(>=11wk): Single [place] Rump Length: Not visualized. Rate of Cardiac [...] and correlation with beta HCG level recommended. [facility] CONSOLIDATEDEXAMINATION: FIRST TRIMESTER OBSTETRIC ULTRASOUND [...] Sac: Not definitively identified. Embryo(<11wk) /Fetus(>=11wk): Single [place] Rump Length: Not visualized. Rate of Cardiac Activity not visualized. Right ovary: 4.1 x 3.1 x 2.2 cm. Left ovary: 3.5 x 3.7 x 3.1 cm. Free fluid: No significant free fluid. Measurements: Estimated gestational age by current ultrasound: Too early to determine. Estimated gestational age by LMP/prior ultrasound: Too early to determine. Estimated Due Date: Too early to determine. [facility] Jean Paul Felipe MD - 06/20/2025 EXAMINATION: [...] Sac: Not definitively identified. Embryo(<11wk) /Fetus(>=11wk): Single [place] Rump Length: Not visualized. Rate of Cardiac [...] and correlation with beta HCG level recommended. [facility] Hospitaliology Study observation (narrative)[facility]ahannock HospitalUS OB TRANSVAGINALOrdered By: Jean Paul Carranza on 47-27-8640Tzi [facility] Work Phone: Urinalysis w/ Microon 65-29-0772GcguqxbgAFQLDCdnjolyr NONEMetrohealth Cleveland Heights Medical CenterComment on above:Performed By: #### UAMIC #### [facility] [address] [place] [address] [place] [address] Compliance Nurse: Rebecca Singhirubin, SemiQt,UrNegativeNormalNEGMetrohealth Cleveland Heights Medical CenterComment on above:Performed By: #### UAMIC #### [facility] [address] [place] [address] [place] [address] Compliance Nurse: Bessy Singh, UrineNegativeNormalMercy Health St. [facility]'s [facility] Comment on above:Performed By: #### UAMIC #### [address] [place] [address] Compliance Nurse: Bryan Singh TO 2NormalMetrohealth Cleveland Heights Medical CenterComment on above:Result Comment: HYALINEPerformed By: #### UAMIC #### [address] [place], [place] 8221083 Compliance Nurse: JESSICA iSnghlarity (U)ClearNormalCLEARMetrohealth Cleveland Heights Medical Center Comment on above:Performed By: #### UAMIC #### [facility] [address] [place] [address] Dr. Gallardo, [place] 0978483 Compliance Nurse: JESSICA Singholor (U)YellowNormalYOhio State University [facility] Medical [facility] Comment on above:Performed By: #### UAMIC #### [facility] [address] [place] [address] Dr. [place]ardo, [place] 1482983 Compliance Nurse: Christian Hanley MDEpithelial cells LM Ql (Urine sed)2 TO 3Dizniu0-06 [facility] Medical CenterComment on above:Performed By: #### UAMIC #### [address] [place], [place] [address]3 Compliance Nurse: Christian Hanley MDGlucose Ql (U)NegativeNormalNEGWayne Hospital HospitalComment on above:Performed By: #### UAMIC #### [facility] [address] [place] [address] Dr. [place], [place] 9001283 Compliance Nurse: Christian Hanley MDKetones Ql (U)2+ mg/dLAbnormalNEGWayne Hospital HospitalComment on above:Performed By: #### UAMIC #### [facility] [address] [place] [address] Dr. [place]ardo, [place] 0348183 Compliance Nurse: Christian Hanley MDLeukocyte esterase Test strip Ql (U)NegativeNormal NEGMetrohealth Cleveland Heights Medical CenterComment on above:Performed By: #### UAMIC #### [facility] [address] [place] [address] [place] [address] Compliance Nurse: JOSÉ LUIS Singhucus StrandsTRACEAbnormalNONEMeLackey Memorial Hospital HospitalComment on above:Performed By: #### UAMIC #### [facility] [address] [place] [address] Dr. [place]ardo, [place] 1323383 Compliance Nurse: Christian Hanley MDNitrite,UrNegativeNormalNEGMetrohealth Cleveland Heights Medical Center Comment on above:Performed By: #### UAMIC #### [facility] [address] [place] [address] [place] [address] Compliance Nurse: AWILDA Singh,Ur8.3Bvqxzk1.0-9.0Met[facility] Medical CenterComment on above:Performed By: #### UAMIC #### [facility] [address] [place] [address] Compliance Nurse: AWILDA Singhrotein Ql (U)1+ mg/dLAbnormalNEGMetrohealth Cleveland Heights Medical CenterComment on above:Performed By: #### UAMIC #### [facility] [address] [place] [address] [place] [address] Compliance Nurse: Luis Carlos Singh. [place],Ur1.719Buzkyx2.010-1.020Metro[facility] Heights Medical CenterComment on above:Performed By: #### UAMIC #### [facility] [address] [place] [address] Dr. [place]ardo, [place] [address] Compliance Nurse: Louann Singh RBC's0 TO 0Rvlexf6-5IphhpDayton VA Medical Center Comment on above:Performed By: #### UAMIC #### [facility] [address] [place] [address] Dr. [place]ardo, [place] [address] Compliance Nurse: Louann Singh WBC's0 TO 7Uwftmu6-7QoluaMetrohealth Cleveland Heights Medical Center Comment on above:Performed By: #### UAMIC #### [facility] [address] [place] [address] Compliance Nurse: Ele Singhbilinogen,UrNormalNormal0.0-1.0Met[facility] Medical CenterComment on above:Performed By: #### UAMIC #### [facility] [address] [place] [address] [place] [address] Compliance Nurse: Christian Hanley MDUrinalysis with Microscopicon 50-37-1555Xgmnqsjs LM Ql (Urine sed)TRACEAbnormalNoneBon Secours Mercy HealthBilirubin [...] Mercy HealthBon Secours Mercy HealthUrine Drug Screenon 74-37-5149Qyunscufyckx Ql (U)NegativeNEGATIVEBon Secours Mercy HealthComment on above:Cutoff: [...] should be ordered if clinically indicated.Bon Secabdoulaye Select [facility] Hospital [facility] Columbusy HealthBon Secours [facility] Columbusy HealthBASIC METABOLIC PANELon 32-10-4985Elwnj gap [Moles/Vol]9 mmol/LNormal-[facility] HospitalComment on above: Performed By: #### SYED RAPHAEL, 1988-02, , 32466-9, 5643-2, 2157-03 #### [facility] ([id number]) [address] [place] [address]Etcxreu [Mass/Vol]10.0 mg/dLNormal8.5-10.5Pro[facility] General HospitalComment on above:Performed By: #### SYED RAPHAEL, 1988-02, , 11169-1, 5643-2, 2157-03 #### [facility] ([id number]) [address] [place] [address]Jspixoed [Moles/Vol]99 mmol/WUdeefo35-091DgsFctgylProMedica Defiance Regional HospitalComment on above:Performed By: #### SYED RAPHAEL, 1988-02, , 39426-5, 5643-2, 2157-03 #### [facility] ([id number]) [address] [place] [address]NM9 [Moles/Vol]29 mmol/OAdffyw77-60LzcHaaeafDayton Osteopathic Hospital Comment on above:Performed By: #### SYED RAPHAEL, 1988-02, , 53531-7, 5643-2, 2157-03 #### [facility] ([id number]) [address] [place] [address] 110[address]Acwbeihywo [Mass/Vol]0.83 mg/dLNormal0.40-1.00Pro[facility]iance Regional HospitalComment on above:Result Comment: METHOD TRACEABLE TO IDMS STANDARD Performed By: #### SYED RAPHAEL, 1988-02, , 37440-3, 5642-2, 2157-03 #### [facility] ([id number]) [address] [place] [address] 14929CENB (CKD-EPI) NON-RACE DEPENDENT>^90Normal>=60ProMedica [facility]iance Regional HospitalComment on above:Result Comment: Reported eGFR is based on the CKD-EPI 2020 equation that does not use a race coefficient.Performed By: #### SYED RAPHAEL, 1988-02, , 78685- 0, 5643-2, 2157-03 #### [facility] ([id number]) [address] [place] [address]Mjbdfbp [Mass/Vol]77 mg/cLYadacj87-32DgvSjsewtProMedica Defiance Regional Hospital Comment on above:Performed By: #### SYED RAPHAEL, 1988-02, , 08512-6, 5643-2, 2157-03 #### [facility] ([id number]) [address] [place] [address] 48[address]Yfnurlzwn [Moles/Vol]4.6 mmol/LNormal3.5-5.0ProBig Bend Regional Medical CenterComment on above:Performed By: #### SYED RAPHAEL, 1988-02, , 11710-1, 5643-2, 2157-03 #### [facility] ([id number]) [address] [place] [address]Gsjlwd [Moles/Vol]137 mmol/FMrbarl037-410GyvAprgyp [facility]remont HospitalComment on above:Performed By: #### IJEOMA [facility], 1988-02, , 22225-9, 2, 2157-03 #### [facility] ([id number]) [address] [place] [address]34[address]Qbtc nitrogen [Mass/Vol]11 mg/dLNormal5-23ProBig Bend Regional Medical CenterComment on above:Performed By: #### SYED RAPHAEL, 1988-02, , 16136-6, 5642-2, 2157-03 #### [facility] ([id number]) [address] [place] [address]Yeomd Metabolic Panelon 75-13-2084Ttyyo gap [Moles/Vol]18 mmol/LHigh9 - 16 mmol/LBon Secours Mercy HealthCalcium [Mass/Vol]10.0 mg/dL8.6 - 10.4 mg/dLBon Secours Mercy HealthChloride [Moles/Vol]97 mmol/LLow98 - 107 mmol/LBon Secours Mercy HealthCO2 [Moles/Vol]23 mmol/L20 - 31 mmol/LBon Secours Mercy HealthCreatinine [Mass/Vol]1.2 mg/dLHigh0.50 - 0.90 mg/dLBon Secours Mercy HealthEst, Glom Filt Rate67- PINFBon Secours [facility] Hospital - Columbusy HealthComment on above: These results are not [...] that affects renal tubular secretion. Glucose [Mass/Vol]141 mg/gHLspc73 - 99 mg/dLBon [facility] Interpretation and review of laboratory resultsAbnormalRiverside Tappahannock Hospital Potassium [Moles/Vol]3.3 mmol/LLow3.7 - 5.3 mmol/LBon [facility] CenterSodium [Moles/Vol]138 mmol/L136 - 145 mmol/LBon [facility] Medical CenterUrea nitrogen [Mass/Vol]16 mg/dL6 - 20 mg/dLBon [facility] CenterUrea nitrogen/Creatinine [Mass ratio]13 mg/mg9 - 20Bon [facility] ServicesBasic Metabolic Profon 69-85-3488Flwgb gap [Moles/Vol]18 mmol/LHigh9-16[facility] Medical CenterComment on above:Performed By: #### APTMUT, AMTHFR #### [facility] [address] [place], [place] [id number] Compliance Nurse: Melchor Rubin MD #### LUPPRO #### [address] [address] Compliance Nurse: Temo Tipton MD [address] [place] [address] Compliance Nurse: Christian Hanley MDBUN/CRE Plieg33Ovybio5-01Cjf[address] Comment on above:Performed By: #### APTMUT, AMTHFR #### [facility] [address] [place] [address] Compliance Nurse: Melchor Rubin MD #### LUPPRO #### [facility] [place], [place] 9372108 Compliance Nurse: Temo Tipton MD [address] [place], [place] 5181183 Compliance Nurse: JESSICA Snighalcium [Mass/Vol]10.0 mg/dLNormal8.6-10.4Met[facility] Medical CenterComment on above:Performed By: #### APTMUT, AMTHFR #### [facility] [address] [place] [address] Compliance Nurse: Melchor Rubin MD #### LUPPRO #### [facility] [address] [place] [address] Compliance Nurse: Temo Tipton MD [address] [place], [place] 4855383 Compliance Nurse: JESSICA Singhhloride [Moles/Vol]97 mmol/QOtj57-603IycwdMetrohealth Cleveland Heights Medical CenterComment on above:Performed By: #### RAYMONDMUT, AMTHFR #### [facility] [address] [place] [address] Compliance Nurse: Melchor Rubin MD #### LUPPRO #### [address] [address] Compliance Nurse: Temo Tipton MD [address] [place], [place] 8030383 Compliance Nurse: JESSICA SinghO2 [Moles/Vol]23 mmol/AZxvkmi96-45SbhiyMetrohealth Cleveland Heights Medical CenterComment on above:Performed By: #### APTMUT, AMTHFR #### [facility] [address] [place] [address] Compliance Nurse: Melchor Rubin MD #### LUPPRO #### [address] [address] Compliance Nurse: Temo Tipton MD [address] [place], [place] 0098083 Compliance Nurse: JESSICA Singhreatinine [Mass/Vol]1.2 mg/dLHigh0.50-0.90[facility] Medical CenterComment on above:Performed By: #### APTMUT, AMTHFR #### [facility] [address] [place] [address] Compliance Nurse: Melchor Rubin MD #### LUPPRO #### [place] [address] [place] [address] Compliance Nurse: Temo Tipton MD [address] [place], [place] 2568583 Compliance Nurse: Christian Hanley MDGFR/1.73 sq M.predicted among non-blacks MDRD (S/P/Bld) [Vol rate/Area]67 mL/min/{1.73_m2}Normal>60[facility] Comment on above:Result Comment: These results are [...] #### APTMUT, AMTHFR #### [facility] [address] [place] [address] Compliance Nurse: Melchor Rubin MD #### LUPPRO #### [place] [address] [place] [address] Compliance Nurse: Temo Tipton MD [address] [place], [place] 4640483 Compliance Nurse: Christian Hanley MDGlucose [Mass/Vol]141 mg/lBOzyb54-38QaczhDayton VA Medical CenterComment on above:Performed By: #### APTMUT, AMTHFR #### [facility] [address] [place] [address] Compliance Nurse: Melchor Rubin MD #### LUPPRO #### [facility] [address] [place] [address] Compliance Nurse: Temo Tipton MD [address] [place], [place] 1816483 Compliance Nurse: AWILDA Singhotassium [Moles/Vol]3.3 mmol/LLow3.7-5.3MDayton VA Medical CenterComment on above:Performed By: #### APTMUT, AMTHFR #### [facility] [address] [place] [address] Compliance Nurse: Melchor Rubin MD #### LUPPRO #### [address] [address] Compliance Nurse: Temo Tipton MD [address] [place] [address]6783 Compliance Nurse: FREYA Singhodium [Moles/Vol]138 mmol/XMxnhsi952-457Abeex Tiffin HospitalComment on above:Performed By: #### APTMUT, AMTHFR #### [facility] [address] [place], [place] [address] Compliance Nurse: Melchor Rubin MD #### LUPPRO #### [address] [address] Compliance Nurse: Temo Tipton MD [address] [place], [place] 5311083 Compliance Nurse: Christian Hanley MDUrea nitrogen [Mass/Vol]16 mg/dLNormal6-20[facility] Medical CenterComment on above:Performed By: #### APTMUT, AMTHFR #### [facility] [address] [place] [address] Compliance Nurse: Melchor Rubin MD #### LUPPRO #### [address] [address] Compliance Nurse: Temo Tipton MD [address] [place] [address] Compliance Nurse: Christian Hanley [facility] with Auto Differentialon 02-47-5993Drjuroyml (Bld) [#/Vol]0.04 10*3/uLBon [facility] CenterBasophils/100 WBC (Bld)0 %0 - 2 %[facility] HospitalEosinophils (Bld) [#/Vol][facility] Eosinophils/100 WBC (Bld)0 %Low1 - 4 %[facility] HospitalErythrocyte distribution width (RBC) [Ratio]13.9 %11.8 - 14.4 %[facility] Hematocrit (Bld) [Volume fraction]38.7 %36.3 - 47.1 %[facility] Hemoglobin (Bld) [Mass/Vol]12.9 g/dL11.9 - 15.1 g/dLBon [facility] Immature granulocytes (Bld) [#/Vol]0.07 10*3/uLBon [facility] CenterImmature granulocytes/100 WBC (Bld)1 %Xvmb5TjeRiverside Tappahannock HospitalInterpretation and review of laboratory resultsAbnormalBon [facility] Medical CenterLymphocytes/100 WBC (Bld)10 %Low24 - 43 %[facility] HospitalLymphocytes/100 WBC (Bld)1.52 %[facility] HospitalH (RBC) [Entitic mass]29.5 pg25.2 - 33.5 pgBon [facility] - AndersonHC (RBC) [Mass/Vol]33.3 g/dL28.4 - 34.8 g/dLBon [facility] - AndersonV (RBC) [Entitic vol]88.6 fL82.6 - 102.9 fLRiverside Tappahannock Hospital Monocytes/100 WBC (Bld)7 %3 - 12 %[facility] HospitalMonocytes/100 WBC (Bld)1.01 %[facility] HospitalNeutrophils/100 WBC (Bld)82 %High36 - 65 %[facility] HospitalNucleated RBC/100 WBC (Bld) [Ratio]0.0 %0.0 per 100 WBCBon [facility] Medical CenterPlatelet mean volume (Bld) [Entitic vol]9.1 fL8.1 - 13.5 fL Bon [facility] Medical CenterPlatelets (Bld) [#/Vol]355 10*3/uLBon [facility] Medical CenterRBC (Bld) [#/Vol]4.37 10*6/uL3.95 - 5.11 m/uLRiverside Tappahannock Hospital Segmented neutrophils/100 WBC (Bld)12.62 %HighBon [facility] Medical CenterWBC other (Bld) [#/Vol]15.3HighBon Freeman Regional Health ServicesCBC with Diffon 69-82-0771Oqn. Basophil0.04 k/uLNormal0.00-0.20[facility] Comment on above:Performed By: #### APTMUT, AMTHFR #### [facility] [address] [place], [place] [id number] Compliance Nurse: Melchor Rubin MD #### LUPPRO #### [address] [id number] Compliance Nurse: Temo Tipton MD [facility] [address] [place] [address] [place] [address] Compliance Nurse: Juana Singh. Eosinophil<0.55Xemmut6.00-0.44[facility] Medical CenterComment on above:Performed By: #### APTMUT, AMTHFR #### [facility] [address] [place], [place] 20008[address] Compliance Nurse: Melchor Rubin MD #### LUPPRO #### [place] [address] [place], [place] 4244208 Compliance Nurse: Temo Tipton MD [facility] [address] [place] [address] [place] [address] Compliance Nurse: Juana Singh.Imm.Granulocyte0.07 k/uLNormal0.00-0.30[facility] Medical CenterComment on above:Performed By: #### APTMUT, AMTHFR #### [facility] [address] [place] [address] Compliance Nurse: Melchor Rubin MD #### LUPPRO #### [address] [address] Compliance Nurse: Temo Tipton MD [address] [place], [place] 9492283 Compliance Nurse: Juana Singh.Neutrophil (Seg)12.62 k/uLHigh1.50-8.10[facility] Medical CenterComment on above:Performed By: #### APTMUT, AMTHFR #### [facility] [address] [place] [address] Compliance Nurse: Melchor Rubin MD #### LUPPRO #### [address] [address] Compliance Nurse: Temo Tipton MD [address] [place], [place] 8855483 Compliance Nurse: Christian Hanley MDBasophils/100 WBC (Bld)0 %Normal0-2MDayton VA Medical CenterComment on above:Performed By: #### APTMUT, AMTHFR #### [facility] [address] [place] [address] Compliance Nurse: Melchor Rubin MD #### LUPPRO #### [address] [address] Compliance Nurse: Temo Tipton MD [address] [place], [place] 1858383 Compliance Nurse: Christian Hanley MDEosinophils/100 WBC (Bld)0 %Low1-4[facility] Medical CenterComment on above:Performed By: #### APTMUT, AMTHFR #### [facility] [address] [place] [address] Compliance Nurse: Melchor Rubin MD #### LUPPRO #### [facility] [address] [place] [address] Compliance Nurse: Temo Titpon MD [address] [place] [address] Compliance Nurse: Christian Hanley MDErythrocyte distribution width (RBC) [Ratio]13.9 % Wsloyo94.8-14.4MerSelect Medical Specialty Hospital - Akron HospitalComment on above:Performed By: #### APTMUT, AMTHFR #### [facility] [address] [place] [address] Compliance Nurse: Melchor Rubin MD #### LUPPRO #### [address] [address] Compliance Nurse: Temo Tipton MD [address] [place] [address] Compliance Nurse: Christian Hanley MDHematocrit (Bld) [Volume fraction]38.7 %Normal 36.3-47.1Mercy Kirkwood HospitalComment on above:Performed By: #### APTMUT, AMTHFR #### [facility] [address] [place] [address] Compliance Nurse: Melchor Rubin MD #### LUPPRO #### [address] [address] Compliance Nurse: Temo Tipton MD [address] [place] [address] Compliance Nurse: Christian Hanley MDHemoglobin (Bld) [Mass/Vol]12.9 g/dLNormal 11.9-15.1[facility]wich HospitalComment on above:Performed By: #### APTMUT, AMTHFR #### [facility] [address] [place] [address] Compliance Nurse: Melchro Rubin MD #### LUPPRO #### [facility] [address] [place] [address] Compliance Nurse: Temo Tipton MD [facility] [facility] [address] [place] [address] Dr. [place], [place] [phone] Compliance Nurse: Christian Hanley MDImmature granulocytes/100 WBC (Bld)1 %Jbqm1Czfgw Kirkwood HospitalComment on above:Performed By: #### APTMUT, AMTHFR #### [facility] [address] [place] [address] Compliance Nurse: eMlchor Rubin MD #### LUPPRO #### [address] [address] Compliance Nurse: Temo Tipton MD [address] [place], [place] [phone] Compliance Nurse: Christian Hanley MDLymphocytes (Bld) [#/Vol]1.52 10*3/uLNormal 1.10-3.70[facility] Centercy Greenwich HospitalComment on above:Performed By: #### APTMUT, AMTHFR #### [facility] [address] [place] [address] Compliance Nurse: Melchor Rubin MD #### LUPPRO #### [facility] [address] [place] [address] Compliance Nurse: Temo Tipton MD [address] [place], [place] 1953683 Compliance Nurse: Christian Hanley MDLymphocytes/100 WBC (Bld)10 %Ylo55-62Hkmyi Greenwich HospitalComment on above:Performed By: #### APTMUT, AMTHFR #### [facility] [address] [place] [address] Compliance Nurse: Melchor Rubin MD #### LUPPRO #### [facility] [address] [place] [address] Compliance Nurse: Temo Tipton MD [address] Gallardo, [place] 9012683 Compliance Nurse: KARLY Singh (RBC) [Entitic mass]29.5 ygPfoscx67.2-33.5 [facility] Medical CenterComment on above:Performed By: #### APTMUT, AMTHFR #### [facility] [address] [place] [address] Compliance Nurse: Melchor Rubin MD #### LUPPRO #### [facility] [address] [place] [address] Compliance Nurse: Temo Tipton MD [address] [place], [place] 4477983 Compliance Nurse: KARLY SinghC (RBC) [Mass/Vol]33.3 g/fIDwakdn44.4-34.8[facility] Medical CenterComment on above:Performed By: #### APTMUT, AMTHFR #### [facility] [address] [place] [address] Compliance Nurse: Melchor Rubin MD #### LUPPRO #### [facility] [address] [place] [address] Compliance Nurse: Temo Tipton MD [address] [place], [place] [phone] Compliance Nurse: CATALINO Singh (RBC) [Entitic vol]88.6 aAQevvkj30.6-102.9 [facility] Medical CenterComment on above:Performed By: #### APTMUT, AMTHFR #### [facility] [address] [place] [address] Compliance Nurse: Melchor Rubin MD #### LUPPRO #### [facility] [address] [place] [address] Compliance Nurse: Temo Tipton MD [address] [place], [place] 7123583 Compliance Nurse: Christian Hanley MDMonocytes (Bld) [#/Vol]1.01 10*3/uLNormal0.10-1.20 [facility] Medical CenterComment on above:Performed By: #### APTMUT, AMTHFR #### [facility] [address] [place] [address] Compliance Nurse: Melchor Rubin MD #### LUPPRO #### [facility] [address] [place] [address] Compliance Nurse: Temo Tipton MD [facility] [address] [place] [address] [place] [address] Compliance Nurse: Christian Hanley MDMonocytes/100 WBC (Bld)7 %Normal3-12[facility] Medical CenterComment on above:Performed By: #### APTMUT, AMTHFR #### [facility] [address] [place] [address] Compliance Nurse: Melchor Rubin MD #### LUPPRO #### [address] [address] Compliance Nurse: Temo Tipton MD [facility] [address] [place] [address] [place] [address] Compliance Nurse: Christian Hanley MDNeutrophil (Seg)82 %Uspw93-02AajykMetrohealth Cleveland Heights Medical Center Comment on above:Performed By: #### APTMUT, AMTHFR #### [facility] [address] [place] [address] Compliance Nurse: Melchor Rubin MD #### LUPPRO #### [facility] [address] [place] [address] Compliance Nurse: Temo Tipton MD [facility] [address] [place] [address] [place] [address] Compliance Nurse: Christian Hanley MDNRBC Automated0.0 per 100 WBCNormal0.0[facility] Medical CenterComment on above:Performed By: #### APTMUT, AMTHFR #### [facility] [address] [place] [address] Compliance Nurse: Melchor Rubin MD #### LUPPRO #### [facility] [address] [place] [address] Compliance Nurse: Temo Tipton MD [address] [place] [address] Compliance Nurse: Benton Singh mean volume (Bld) [Entitic vol]9.1 fL Normal8.1-13.5[facility] Medical CenterComment on above:Performed By: #### APTMUT, AMTHFR #### [facility] [address] [place] [address] Compliance Nurse: Melchor Rubin MD #### LUPPRO #### [facility] [address] [place] [address] Compliance Nurse: Temo Tipton MD [address] [place] [address] Compliance Nurse: Elivs Singh (Bld) [#/Vol]355 10*3/qRFocfqn697-988 [facility] Medical CenterComment on above:Performed By: #### APTMUT, AMTHFR #### [facility] [address] [place] [address] Compliance Nurse: Melchor Rubin MD #### LUPPRO #### [facility] [address] [place] [address] Compliance Nurse: Temo Tipton MD [address] [place] [address] Compliance Nurse: TANIA Singh (Bld) [#/Vol]4.37 10*6/uLNormal3.95-5.11[facility] Medical CenterComment on above:Performed By: #### APTMUT, AMTHFR #### [facility] [address] [place] [address] Compliance Nurse: Melchor Rubin MD #### LUPPRO #### [address] [address] Compliance Nurse: Temo Tipton MD [address] [place] [address] Compliance Nurse: Christian Hanley MDMONTEFIORE NYACK [facility]PITAL (d) [#/Vol]15.3 10*3/uLHigh3.5-11.3Mercy Greenwich HospitalComment on above:Performed By: #### APTMUT, AMTHFR #### [facility] [address] [place] [address] Compliance Nurse: Melchor Rubin MD #### LUPPRO #### [address] [address] Compliance Nurse: Temo Tipton MD [address] [place] [address]1983 Compliance Nurse: Alona Singh Scr, Abuse, Uron 15-43-2418Jyqgtbdbuyd(s),Ur NegativeNormalNEGMercy Kirkwood HospitalComment on above:Result Comment: Cutoff: 1000 ng/mLPerformed By: #### APTMUT, AMTHFR #### [facility] [address] [place] [address] Compliance Nurse: Melchor Rubin MD #### LUPPRO #### [address] [address] Compliance Nurse: Temo Tipton MD [address] [place] [address] Compliance Nurse: Christian Hanley MDBarbiturate(s),UrNegativeNormalNEGMercy Kirkwood HospitalComment on above:Result Comment: Cutoff: 200 ng/mlPerformed By: #### APTMUT, AMTHFR #### [facility] [address] [place] [address] Compliance Nurse: Melchor Rubin MD #### LUPPRO #### [address] [address] Compliance Nurse: Temo Tipton MD [address] [place], [place] 2159683 Compliance Nurse: Christian Hanley MDBenzodiazepine(s)NegativeNormalNEGWayne Hospital HospitalComment on above:Result Comment: Cutoff: 200 ng/mlPerformed By: #### APTMUT, AMTHFR #### [facility] [address] [place] [address] Compliance Nurse: Melchor Rubin MD #### LUPPRO #### [address] [address] Compliance Nurse: Temo Tipton MD [address] [place], [place] 3109783 Compliance Nurse: JESSICA Singhannabinoid(s),UrPositiveAbnormalNEGWayne Hospital HospitalComment on above:Result Comment: Cutoff: 50 ng/mlPerformed By: #### APTMUT, AMTHFR #### [facility] [address] [place] [address] Compliance Nurse: Melchor Rubin MD #### LUPPRO #### [address] [address] Compliance Nurse: Temo Tipton MD [address] [place] [address] Compliance Nurse: JESSICA Singhocaine MetaboliteNegativeNormalNEGWayne Hospital HospitalComment on above:Result Comment: Cutoff: 300 ng/mlPerformed By: #### APTMUT, AMTHFR #### [facility] [address] [place] [address] Compliance Nurse: Melchor Rubin MD #### LUPPRO #### [facility] [address] [place] [address] Compliance Nurse: Temo Tipton MD [address] [place], [place] 8991483 Compliance Nurse: Christian Hanley MDFentanyl, UrineNegativeNormalNEGMercy Kirkwood HospitalComment on above:Result Comment: Cutoff: 5 ng/mlPerformed By: #### APTMUT, AMTHFR #### [facility] [address] [place] [address] Compliance Nurse: Melchor Rubin MD #### LUPPRO #### [address] [address] Compliance Nurse: Temo Tipton MD [address] [place] [address]1983 Compliance Nurse: Christian Hanley MDInterpretive InfoThis method is a screening test to detect only these drug classes as part of aNormalMercy Greenwich HospitalComment on above:Result Comment: medical workup. Confirmatory testing by another method should be ordered if clinically indicated.Performed By: #### APTMUT, AMTHFR #### [facility] [address] [place] [address] Compliance Nurse: Melchor Rubin MD #### LUPPRO #### [address] [address] Compliance Nurse: Temo Tipton MD [facility] [address] [place] [address] Dr. [place], [place] 0363383 Compliance Nurse: JOSÉ LUIS Singhethadone Ql (U)NegativeNormalNEGMercy Greenwich HospitalComment on above:Result Comment: Cutoff: 300 ng/mlPerformed By: #### APTMUT, AMTHFR #### [facility] [address] [place] [address] Compliance Nurse: Melchor Rubin MD #### LUPPRO #### [address] [address] Compliance Nurse: Temo Tipton MD [address] [place] [address] Compliance Nurse: Christian Hanley MDOpiate(s), UrNegativeNormalNEGMerSelect Medical Specialty Hospital - Akron HospitalComment on above:Result Comment: Cutoff: 300 ng/ml Note: The Opiate screen is not intended to detect Oxycodone.Performed By: #### APTMUT, AMTHFR #### [facility] [address] [place] [address] Compliance Nurse: Melchor Rubin MD #### LUPPRO #### [address] [address] Compliance Nurse: Temo Tipton MD [address] [place] [address] Compliance Nurse: Christian Hanley MDOxycodone, UrineNegativeNormalNEGMercy Kirkwood HospitalComment on above:Result Comment: Cutoff: 100 ng/mlPerformed By: #### APTMUT, AMTHFR #### [facility] [address] [place] [address] Compliance Nurse: Melchor Rubin MD #### LUPPRO #### [address] [address] Compliance Nurse: Temo Tipton MD [address] [place] [address] Compliance Nurse: AWILDA Singhhencyclidine, UrNegativeNormalNEGMercy Kirkwood HospitalCommymichigan medical center clare on above:Result Comment: Cutoff: 25 ng/mlPerformed By: #### APTMUT, AMTHFR #### [facility] [address] [place] [address] Compliance Nurse: Melchor Rubin MD #### LUPPRO #### [facility] [address] [place] [address] Compliance Nurse: Temo Tipton MD [facility] [address] [place] [address] Dr. [place]ardo, [place] [phone] Compliance Nurse: Christian Hanley MDUrinalysis w/ Microon [id number]+Abnormal NONEMetrohealth Cleveland Heights Medical CenterComment on above:Performed By: #### APTMUT, AMTHFR #### [facility] [address] [place] [address] Compliance Nurse: Melchor Rubin MD #### LUPPRO #### [facility] [address] [place] [address] Compliance Nurse: Temo Tipton MD [facility] [address] [place] [address] Dr. [place]ardo, [place] [phone] Compliance Nurse: Christian Hanley MDBilirubin, SemiQt,UrNegativeNormalNEGMetrohealth Cleveland Heights Medical CenterComment on above:Performed By: #### APTMUT, AMTHFR #### [facility] [address] [place] [address] Compliance Nurse: Melchor Rubin MD #### LUPPRO #### [facility] [address] [place] [address] Compliance Nurse: Temo Tipton MD [facility] [address] [place] [address] Dr. [place], [place] 2702583 Compliance Nurse: Christian Hanley MDBlood, UrineTRACEAbnormalMercy Health St. [facility] Comment on above:Performed By: #### APTMUT, AMTHFR #### [facility] [address] [place] [address] Compliance Nurse: Melchor Rubin MD #### LUPPRO #### [facility] [address] [place] [address] Compliance Nurse: Temo Tipton MD [facility] [address] [place] [address] Dr. [place], [place] [phone] Compliance Nurse: JESSICA Singhlarity (U)ClearNormalCLEARMetrohealth Cleveland Heights Medical Center Comment on above:Performed By: #### APTMUT, AMTHFR #### [facility] [address] [place], [place] 38828108 Compliance Nurse: Melchor Rubin MD #### LUPPRO #### [address] [address] Compliance Nurse: Temo Tipton MD [facility] [address] [place] [address] [place] [address] Compliance Nurse: JESSICA Singholor (U)YellowNoKettering Health – Soin Medical Center Comment on above:Performed By: #### APTMUT, AMTHFR #### [facility] [address] [place], [place] [id number] Compliance Nurse: Melchor Rubin MD #### LUPPRO #### [address] [address] Compliance Nurse: Temo Tipton MD [facility] [address] [place] [address] [place] [address] Compliance Nurse: Christian Hanley MDEpithelial cells LM Ql (Urine sed)10 TO 20Normal 0-25[facility] Medical CenterComment on above:Performed By: #### APTMUT, AMTHFR #### [facility] [address] [place], [place] [id number] Compliance Nurse: Melchor Rubin MD #### LUPPRO #### [facility] [address] [place] [address] Compliance Nurse: eTmo Tipton MD [facility] [address] [place] [address] Compliance Nurse: Christian Hanley MDGlucose Ql (U)NegativeNormalNEGMetrohealth Cleveland Heights Medical CenterComment on above:Performed By: #### APTMUT, AMTHFR #### [facility] [address] [place] [address] Compliance Nurse: Melchor Rubin MD #### LUPPRO #### [facility] [address] [place] [address] Compliance Nurse: Temo Tipton MD [facility] [address] [place] [address] Dr. [place], [place] 1051383 Compliance Nurse: Christian Hanley MDKetones Ql (U)NegativeNormalNEGMerVeterans Administration Medical CenterComment on above:Performed By: #### APTMUT, AMTHFR #### [facility] [address] [place] [address] Compliance Nurse: Melchor Rubin MD #### LUPPRO #### [address] [address] Compliance Nurse: Temo Tipton MD [facility] [address] [place] [address] [place], [place] [phone] Compliance Nurse: Christian Hanley MDLeukocyte esterase Test strip Ql (U)NegativeNormal NEGMetrohealth Cleveland Heights Medical CenterComment on above:Performed By: #### APTMUT, AMTHFR #### [facility] [address] [place] [address] Compliance Nurse: Melchor Rubin MD #### LUPPRO #### [address] [address] Compliance Nurse: Temo Tipton MD [facility] [address] [place] [address] [place], [place] 5456583 Compliance Nurse: JOSÉ LUIS Singhucus Strands1+AbnormalNONEMeThe Institute of Living Comment on above:Performed By: #### APTMUT, AMTHFR #### [facility] [address] [place] [address] Compliance Nurse: Melchor Rubin MD #### LUPPRO #### [address] [address] Compliance Nurse: Temo Tipton MD [facility] [address] [place] [address] Dr. [place], [place] 2145983 Compliance Nurse: Christian Hanley MDNitrite,UrNegativeNormalNEGMetrohealth [facility] Heights Medical Center Comment on above:Performed By: #### APTMUT, AMTHFR #### [facility] [address] [place] [address] Compliance Nurse: Melchor Rubin MD #### LUPPRO #### [facility] [address] [place] [address] Compliance Nurse: Temo Tipton MD [facility] [address] [place] [address] Dr. [place], [place] 9567583 Compliance Nurse: Christian Hanley [facility],Ur6.6Foxnol1.0-9.0[facility] Medical CenterComment on above:Performed By: #### APTMUT, AMTHFR #### [facility] [address] [place] [address] Compliance Nurse: Melchor Rubin MD #### LUPPRO #### [address] [address] Compliance Nurse: Temo Tipton MD [address] [place], [place] [phone] Compliance Nurse: Didier Singh Ql (U)2+ mg/dLAbnormalNEGMetrohealth Cleveland Heights Medical CenterComment on above:Performed By: #### APTMUT, AMTHFR #### [facility] [address] [place] [address] Compliance Nurse: Melchor Rubin MD #### LUPPRO #### [facility] [address] [place] [address] Compliance Nurse: Temo Tipton MD [facility] [address] [place] [address] Dr. [place], [place] 8053483 Compliance Nurse: FREYA Singhpec. [place],Ur>1.216Cyts4.010-1.020[facility] Medical CenterComment on above:Performed By: #### APTMUT, AMTHFR #### [facility] [address] [place] [address] Compliance Nurse: Melchor Rubin MD #### LUPPRO #### [facility] [address] [place] [address] Compliance Nurse: Temo Tipton MD [address] [place], [place] [phone] Compliance Nurse: Louann Singh RBC's0 TO 7Uvebzm6-6WhgibDayton VA Medical Center Comment on above:Performed By: #### APTMUT, AMTHFR #### [facility] [address] [place] [address] Compliance Nurse: Melchor Rubin MD #### LUPPRO #### [address] [address] Compliance Nurse: Temo Tipton MD [address] [place] [address] Compliance Nurse: Louann Singh WBC's0 TO 3Txoogx4-1ZfhpwMetrohealth Cleveland Heights Medical Center Comment on above:Performed By: #### APTMUT, AMTHFR #### [facility] [address] [place] [address] Compliance Nurse: Melchor Rubin MD #### LUPPRO #### [address] [address] Compliance Nurse: Temo Tipton MD [facility] [address] [place] [address] [place] [address] Compliance Nurse: Christian Hanley MDUrobilinogen,UrNormalNormal0.0-1.0[facility] Medical CenterComment on above:Performed By: #### APTMUT, AMTHFR #### [facility] [address] [place] [address] Compliance Nurse: Melchor Rubin MD #### LUPPRO #### [facility] [address] [place], [place] [id number] Compliance Nurse: Temo Tipton MD [facility] [address] [place] [address] Compliance Nurse: Christian Hanley MDUrinalysis with Microscopicon [id number] LM Ql (Urine sed)1+AbnormalNoneBon Secours Mercy HealthBilirubin [...] Mercy HealthBon Secours Mercy HealthUrine Drug Screenon 41-17-5571Stzwppuyjdio Ql (U)NegativeNEGATIVEBon Secours Mercy HealthComment on above:Cutoff: [...] should be ordered if clinically indicated.[facility] HealthBon SecLourdes Counseling Centery [facility], AvonBasic Metab w/rfx MGon 13-56-8113Essek gap [Moles/Vol]12 mmol/LNormal9-16[facility] Medical CenterComment on above:Performed By: #### APTMUT, AMTHFR #### [facility] [address] [place] [address] Compliance Nurse: Melchor Rubin MD #### LUPPRO #### [facility] [address] [place] [address] Compliance Nurse: Temo Tipton MD [facility] [address] [place] [address] Compliance Nurse: Christian Hanley MDBUN/CRE Vaodj72Xpkowl2-60Cyoqa [facility] Comment on above:Performed By: #### APTMUT, AMTHFR #### [facility] [address] [place] [address] Compliance Nurse: Melchor Rubin MD #### LUPPRO #### [address] [address] Compliance Nurse: Temo Tipton MD [address] [place], [place] 8391283 Compliance Nurse: JESSICA Singhalcium [Mass/Vol]8.4 mg/dLLow8.6-10.4[facility] Medical CenterComment on above:Performed By: #### APTMUT, AMTHFR #### [facility] [address] [place] [address] Compliance Nurse: Melchor Rubin MD #### LUPPRO #### [address] [address] Compliance Nurse: Temo Tipton MD [address] [place] [address] Compliance Nurse: JESSICA Singhhloride [Moles/Vol]96 mmol/UYnr64-853UxxpzMetrohealth Cleveland Heights Medical CenterComment on above:Performed By: #### APTMUT, AMTHFR #### [facility] [address] [place] [address] Compliance Nurse: Melchor Rubin MD #### LUPPRO #### [address] [address] Compliance Nurse: Temo Tipton MD [address] [place] [address] Compliance Nurse: JESSICA SinghO2 [Moles/Vol]30 mmol/HZkicsv44-02ScvhwMetrohealth Cleveland Heights Medical CenterComment on above:Performed By: #### APTMUT, AMTHFR #### [facility] [address] [place] [address] Compliance Nurse: Melchor Rubin MD #### LUPPRO #### [facility] [address] [place] [address] Compliance Nurse: Temo Tipton MD [address] [place], [place] 9681183 Compliance Nurse: JESSICA Singhreatinine [Mass/Vol]1.0 mg/dLHigh0.50-0.90[facility] Medical CenterComment on above:Performed By: #### APTMUT, AMTHFR #### [facility] [address] [place] [address] Compliance Nurse: Melchor Rubin MD #### LUPPRO #### [address] [address] Compliance Nurse: Temo Tipton MD [address] [place] [address] Compliance Nurse: Christian Hanley MDGFR/1.73 sq M.predicted among non-blacks MDRD (S/P/Bld) [Vol rate/Area]78 mL/min/{1.73_m2}Normal>60[facility] Comment on above:Result Comment: These results are [...] #### APTMUT, AMTHFR #### [facility] [address] [place] [address] Compliance Nurse: Melchor Rubin MD #### LUPPRO #### [facility] [address] [place] [address] Compliance Nurse: Temo Tipton MD [facility] [place], [place] 4631183 Compliance Nurse: Christian Hanley MDGlucose [Mass/Vol]100 mg/cSEtpy77-68BphkaDayton VA Medical CenterComment on above:Performed By: #### APTMUT, AMTHFR #### [facility] [address] [place] [address] Compliance Nurse: Melchor Rubin MD #### LUPPRO #### [facility] [address] [place] [address] Compliance Nurse: Temo Tipton MD [address] [place], [place] 1118483 Compliance Nurse: AWILDA Singhotassium [Moles/Vol]2.6 mmol/LCritically low 3.7-5.3Mercy Kirkwood HospitalComment on above:Performed By: #### APTMUT, AMTHFR #### [facility] [address] [place] [address] Compliance Nurse: Melchor Rubin MD #### LUPPRO #### [facility] [address] [place] [address] Compliance Nurse: Temo Tipton MD [address] [place], [place] 8035083 Compliance Nurse: FREYA Singhodium [Moles/Vol]138 mmol/VUvgeta099-123Tcuqs Greenwich HospitalComment on above:Performed By: #### APTMUT, AMTHFR #### [facility] [address] [place] [address] Compliance Nurse: Melchor Rubin MD #### LUPPRO #### [facility] [address] [place] [address] Compliance Nurse: Temo Tipton MD [address] [place], [place] 9884383 Compliance Nurse: Christian Hanley MDUrea nitrogen [Mass/Vol]19 mg/dLNormal6-20[facility] Medical CenterComment on above:Performed By: #### APTMUT, AMTHFR #### [facility] [address] [place] [address] Compliance Nurse: Melchor Rubin MD #### LUPPRO #### [facility] [address] [place] [address] Compliance Nurse: Temo Tipton MD [facility] [address] [place] [address] Compliance Nurse: Christian Hanley MDHartford [facility] Metabolic Panel w/ Reflex to MGon 04-26-2024 Anion gap [Moles/Vol]12 mmol/L9 - 16 mmol/LBon [facility] Medical CenterAwesome.meCalcium [Mass/Vol]8.4 mg/dLLow8.6 - 10.4 mg/dLBon [facility] CenterAwesome.meChloride [Moles/Vol]96 mmol/LLow98 - 107 mmol/LBon [facility] CenterAwesome.meCO2 [Moles/Vol]30 mmol/L20 - 31 mmol/LBon [facility] CenterAwesome.meCreatinine [Mass/Vol]1.0 mg/dLHigh 0.50 - 0.90 mg/dLBon [facility] Medical CenterAwesome.meEst, Glom Filt Rate78- PINFBon Cottage Children'S HospitalNotice Kiosk [facility], AvonComment on above: These results are not intended [...] that affects renal tubular secretion. Glucose [Mass/Vol]100 mg/kMKabi83 - 99 mg/dLBon [employer] Interpretation and review of laboratory resultsAbnormalBon [facility] Medical CenterAwesome.me Potassium [Moles/Vol]2.6 mmol/LCritically low3.7 - 5.3 mmol/LBon SecAwesome.meSodium [Moles/Vol]138 mmol/L136 - 145 mmol/LBon [facility] CenterAwesome.meUrea nitrogen [Mass/Vol]19 mg/dL6 - 20 mg/dLBon [facility] CenterUrea nitrogen/Creatinine [Mass ratio]19 mg/mg9 - 20Bon [facility] CenterBon [facility] CenterCBC with Auto Differentialon [id number] (Bld) [#/Vol]0.05 10*3/uLBon [facility] CenterBasophils/100 WBC (Bld)1 %0 - 2 %[facility] HospitalEosinophils (Bld) [#/Vol]0.24 10*3/uLBon SecMorrow County HospitalEosinophils/100 WBC (Bld)2 %1 - 4 %[facility] HospitalErythrocyte distribution width (RBC) [Ratio]13.4 %11.8 - 14.4 %[facility] Hematocrit (Bld) [Volume fraction]33.4 %Low36.3 - 47.1 %[facility] Hemoglobin (Bld) [Mass/Vol]11.6 g/dLLow11.9 - 15.1 g/dLBon [facility] Immature granulocytes (Bld) [#/Vol]0.05 10*3/uLBon [facility] CenterImmature granulocytes/100 WBC (Bld)1 %Sjya9VgdRiverside Tappahannock HospitalInterpretation and review of laboratory resultsAbnormalRiverside Tappahannock HospitalLymphocytes/100 WBC (Bld)29 %24 - 43 %[facility] HospitalLymphocytes/100 WBC (Bld)2.87 %[facility] HospitalH (RBC) [Entitic mass]29.7 pg25.2 - 33.5 pgCarilion Franklin Memorial HospitalHC (RBC) [Mass/Vol]34.7 g/dL28.4 - 34.8 g/dLBon [facility] AndersonV (RBC) [Entitic vol]85.6 fL82.6 - 102.9 fLRiverside Tappahannock Hospital Monocytes/100 WBC (Bld)10 %3 - 12 %[facility] HospitalMonocytes/100 WBC (Bld)0.98 %[facility] HospitalNeutrophils/100 WBC (Bld)58 %36 - 65 %[facility] HospitalNucleated RBC/100 WBC (Bld) [Ratio]0 %0.0 per 100 WBCRiverside Tappahannock HospitalPlatelet mean volume (Bld) [Entitic vol]10.9 fL8.1 - 13.5 fL [facility] HospitalPlatelets (Bld) [#/Vol]238 10*3/uLRiverside Tappahannock HospitalRBC (Bld) [#/Vol]3.9 10*6/uLLow3.95 - 5.11 m/uLRiverside Tappahannock Hospital Segmented neutrophils/100 WBC (Bld)5.69 %[facility] HospitalWBC other (Bld) [#/Vol]9.9Bon [facility] ServicesCBC with Diffon [id number]. Basophil0.05 k/uLNormal0.00-0.20[facility] Medical CenterComment on above:Performed By: #### APTMUT, AMTHFR #### [facility] [address] [place], [place] [id number] Compliance Nurse: Melchor Rubin MD #### LUPPRO #### [facility] [address] [place] [address] [id number] Compliance Nurse: Temo Tipton MD [facility] [address] [place] [address] Compliance Nurse: Juana Singh.Imm.Granulocyte0.05 k/uLNormal0.00-0.30[facility] Medical CenterComment on above:Performed By: #### APTMUT, AMTHFR #### [facility] [address] [place] [address] Compliance Nurse: Melchor Rubin MD #### LUPPRO #### [address] [address] Compliance Nurse: Temo Tipton MD [facility] [address] [place] [address] [place] [address] Compliance Nurse: Juana Singh.Neutrophil (Seg)5.69 k/uLNormal1.50-8.10[facility] Medical CenterComment on above:Performed By: #### APTMUT, AMTHFR #### [facility] [address] [place] [address] Compliance Nurse: Melchor Rubin MD #### LUPPRO #### [address] [address] Compliance Nurse: Temo Tipton MD [address] [place] [phone] Compliance Nurse: Christian Hanley MDBasophils/100 WBC (Bld)1 %Normal0-2MDayton VA Medical CenterComment on above:Performed By: #### APTMUT, AMTHFR #### [facility] [address] [place] [address] Compliance Nurse: Melchor Rubin MD #### LUPPRO #### [address] [address] Compliance Nurse: Temo Tipton MD [address] [place] [address] Compliance Nurse: Christian Hanley MDEosinophils (Bld) [#/Vol]0.24 10*3/uLNormal 0.00-0.44[facility] Medical CenterComment on above:Performed By: #### RAYMONDMUT, AMTHFR #### [facility] [address] [place] [address] Compliance Nurse: Melchor Rubin MD #### LUPPRO #### [address] [address] Compliance Nurse: Temo Tipton MD [address] [place] [address] Compliance Nurse: PAPO Singhosinophils/100 WBC (Bld)2 %Normal1-4[facility] HospitalComment on above:Performed By: #### APTMUT, AMTHFR #### [facility] [address] [place] [address] Compliance Nurse: Melchor Rubin MD #### LUPPRO #### [facility] [address] [place] [address] Compliance Nurse: Temo Tipton MD [address] [place], [place] [phone] Compliance Nurse: Christian Hanley MDErythrocyte distribution width (RBC) [Ratio]13.4 % Ezxpbo98.8-14.4[facility] Medical CenterComment on above:Performed By: #### APTMUT, AMTHFR #### [facility] [address] [place] [address] Compliance Nurse: Melchor Rubin MD #### LUPPRO #### [address] [address] Compliance Nurse: Temo Tipton MD [address] [place] [address] Compliance Nurse: Christian Hanley MDHematocrit (Bld) [Volume fraction]33.4 %Low 36.3-47.1MThe University of [facility] Medical Center HospitalComment on above:Performed By: #### APTMUT, AMTHFR #### [facility] [address] [place] [address] Compliance Nurse: Melchor Rubin MD #### LUPPRO #### [facility] [address] [place] [address] Compliance Nurse: Temo Tipton MD [address] [place] [address] Compliance Nurse: Christian Hanley MDHemoglobin (Bld) [Mass/Vol]11.6 g/dLLow11.9-15.1 [facility] CenterComment on above:Performed By: #### APTMUT, AMTHFR #### [facility] [address] [place] [address] Compliance Nurse: Melchor Rubin MD #### LUPPRO #### [address] [address] Compliance Nurse: Temo Tipton MD [address] [place], [place] [phone] Compliance Nurse: Christian Hanley MDImmature granulocytes/100 WBC (Bld)1 %Cddv3NcjaoWayne Hospital HospitalComment on above:Performed By: #### APTMUT, AMTHFR #### [facility] [address] [place] [address] Compliance Nurse: Melchor Rubin MD #### LUPPRO #### [address] [address] Compliance Nurse: Temo Tipton MD [address] [place] [phone] Compliance Nurse: Christian Hanley MDLymphocytes (Bld) [#/Vol]2.87 10*3/uLNormal 1.10-3.70[facility] Medical CenterComment on above:Performed By: #### APTMUT, AMTHFR #### [facility] [address] [place] [address] Compliance Nurse: Melchor Rubin MD #### LUPPRO #### [address] [address] Compliance Nurse: Temo Tipton MD [address] [place], [place] 1098583 Compliance Nurse: Christian Hanley MDLymphocytes/100 WBC (Bld)29 %Givxcw45-17YkolhMetrohealth Cleveland Heights Medical CenterComment on above:Performed By: #### APTMUT, AMTHFR #### [facility] [address] [place] [address] Compliance Nurse: Melchor Rubin MD #### LUPPRO #### [address] [address] Compliance Nurse: Temo Tipton MD [address] [place] [phone] Compliance Nurse: KARLY Singh (RBC) [Entitic mass]29.7 tqDayogn65.2-33.5 [facility] CenterComment on above:Performed By: #### APTMUT, AMTHFR #### [facility] [address] [place] [address] Compliance Nurse: Melchor Rubin MD #### LUPPRO #### [address] [address] Compliance Nurse: Temo Tipton MD [address] [place] [phone] Compliance Nurse: KARLY SinghC (RBC) [Mass/Vol]34.7 g/sUHzhshb14.4-34.8[facility] HospitalComment on above:Performed By: #### APTMUT, AMTHFR #### [facility] [address] [place] [address] Compliance Nurse: Melchor Rubin MD #### LUPPRO #### [address] [address] Compliance Nurse: Temo Tipton MD [address] [place] [phone] Compliance Nurse: JOSÉ LUIS SinghCV (RBC) [Entitic vol]85.6 uRHfzjvg67.6-102.9 [facility] HospitalComment on above:Performed By: #### APTMUT, AMTHFR #### [facility] [address] [place] [address] Compliance Nurse: Melchor Rubin MD #### LUPPRO #### [address] [address] Compliance Nurse: Temo Tipton MD [address] [place] [address] Compliance Nurse: Christian Hanley MDMonocytes (Bld) [#/Vol]0.98 10*3/uLNormal0.10-1.20 [facility] CenterComment on above:Performed By: #### APTMUT, AMTHFR #### [facility] [address] [place] [address] Compliance Nurse: Melchor Rubin MD #### LUPPRO #### [address] [address] Compliance Nurse: Temo Tipton MD [address] [place] [address] Compliance Nurse: JOSÉ LUIS Singhonocytes/100 WBC (Bld)10 %Normal3-12[facility] Medical CenterComment on above:Performed By: #### APTMUT, AMTHFR #### [facility] [address] [place] [address] Compliance Nurse: Melchor Rubin MD #### LUPPRO #### [facility] [address] [place] [address] Compliance Nurse: Temo Tipton MD [address] [place] [address] Compliance Nurse: Christian Hanley MDNeutrophil (Seg)58 %Bodrjw50-37AttklMetrohealth Cleveland Heights Medical CenterComment on above:Performed By: #### APTMUT, AMTHFR #### [facility] [address] [place] [address] Compliance Nurse: Melchor Rubin MD #### LUPPRO #### [facility] [address] [place] [address] Compliance Nurse: Temo Tipton MD [address] [place] [address] Compliance Nurse: Christian Hanley MDNRBC Automated0.0 per 100 WBCNormal0.0[facility] Medical CenterCommymichigan medical center clare on above:Performed By: #### APTMUT, AMTHFR #### [facility] [address] [place] [address] Compliance Nurse: Melchor Rubin MD #### LUPPRO #### [facility] [address] [place] [address] Compliance Nurse: Temo Tipton MD [address] [place] [address] Compliance Nurse: Benton Singh mean volume (Bld) [Entitic vol]10.9 fL Normal8.1-13.5[facility] Medical CenterComment on above:Performed By: #### APTMUT, AMTHFR #### [facility] [address] [place] [address] Compliance Nurse: Melchor Rubin MD #### LUPPRO #### [facility] [address] [place] [address] Compliance Nurse: Temo Tipton MD [address] [place] [address] Compliance Nurse: Elvis Singh (Bld) [#/Vol]238 10*3/oDVaoouo288-666 [facility] Medical CenterCommymichigan medical center clare on above:Performed By: #### APTMUT, AMTHFR #### [facility] [address] [place] [address] Compliance Nurse: Melchor Rubin MD #### LUPPRO #### [facility] [address] [place] [address] Compliance Nurse: Temo Tipton MD [address] [place] [address] Compliance Nurse: TANIA Singh (Bld) [#/Vol]3.90 10*6/uLLow3.95-5.11[facility] Medical CenterComment on above:Performed By: #### APTMUT, AMTHFR #### [facility] [address] [place] [address] Compliance Nurse: Melchor Rubin MD #### LUPPRO #### [facility] [address] [place], [place] [phone] Compliance Nurse: Temo Tipton MD [address] [place] [address] Compliance Nurse: Christian Hanley MDMONTEFIORE NYACK [facility]PITAL (d) [#/Vol]9.9 10*3/uLNormal3.5-11.3MDayton VA Medical CenterComment on above:Performed By: #### APTMUT, AMTHFR #### [facility] [address] [place] [address] Compliance Nurse: Melchor Rubin MD #### LUPPRO #### [facility] [address] [place] [address] Compliance Nurse: Temo Tipton MD [address] [place] [address] Compliance Nurse: LELE Singh ABDOMEN PELVIS W IV CONTRASTon [id number] ABDOMEN PELVIS W IV CONTRASTEXAMINATION: CT OF [...] by: John Porter DO 04/26/25 Final resultNormalMercy Greenwich HospitalCT Abdomen and Pelvis W contrast Clyde [id number] acute intra-abdominal or pelvic process. [facility] CONSOLIDATEDEXAMINATION: CT OF THE ABDOMEN [...] No acute osseous or soft tissue abnormality. [facility] John Aguero DO - 04/26/2025 [...] IMPRESSION: No acute intra-abdominal or pelvic process. [facility] Abdomen and Pelvis W contrast IVOrdered By: John Porter on 20-49-0055Tvq [facility] Work Phone: ekg Rhythm Stripon [id number] Rehabilitation Hospital of Southern ArizonaK (Potassium)on [id number] [Moles/Vol]4.3 mmol/LNormal 3.7-5.3Mer[facility] Greenwich HospitalComment on above:Result Comment: Specimen hemolysis has exceeded the interference as defined by Macy. Value may be falsely increased. Suggest recollection if clinically indicated.Performed By: #### APTMUT, AMTHFR #### [facility] [address] [place] [address] Compliance Nurse: Melchor Rubin MD #### LUPPRO #### [facility] [address] [place] [address] Compliance Nurse: Temo Tipton MD [facility] [address] [place] [address] Compliance Nurse: Christian Hanley MDKeppraon [id number] ug/mLNormalMetrohealth Cleveland Heights Medical CenterComment on above:Result Comment: A reference range for [...] not known. Performed By: #### KEPPRA #### [facility] [place] [address] Compliance Nurse: Temo Tipton MDMagnesiumon [id number] [Mass/Vol]2.6 mg/dL1.6 - 2.6 mg/dLBon [facility] Health ServicesMagnesium [Mass/Vol]2.6 mg/dLNormal1.6-2.6[facility] HospitalComment on above:Performed By: #### APTMUT, AMTHFR #### [facility] [address] [place] [address] Compliance Nurse: Melchor Rubin MD #### LUPPRO #### [facility] [address] [place] [address] Compliance Nurse: Temo Tipton MD [facility] [address] [place] [address] Compliance Nurse: AWILDA Singhotassiumon 32-22-1665Midrsohfl [Moles/Vol]4.3 mmol/L3.7 - 5.3 mmol/LBon [facility] CenterCommymichigan medical center clare on above:Specimen hemolysis has exceeded the interference as defined by Macy. Value may be falsely increased. Suggest recollection if clinically indicated. [facility] HospitalCBC with Auto Differentialon [id number] (Bld) [#/Vol]0.08 10*3/uLBon [facility] CenterBasophils/100 WBC (Bld)1 %0 - 2 %[facility] HospitalEosinophils (Bld) [#/Vol]0.03 10*3/uLBon [facility] CenterEosinophils/100 WBC (Bld)0 %Low1 - 4 %[facility] HospitalErythrocyte distribution width (RBC) [Ratio]13.1 %11.8 - 14.4 %[facility] Hematocrit (Bld) [Volume fraction]46.2 %36.3 - 47.1 %[facility] Hemoglobin (Bld) [Mass/Vol]16.5 g/vNLzag93.9 - 15.1 g/dLBon [facility] Immature granulocytes (Bld) [#/Vol]0.1 10*3/uLBon [facility] CenterImmature granulocytes/100 WBC (Bld)1 %Jkre0GjkRiverside Tappahannock HospitalInterpretation and review of laboratory resultsAbnormalRiverside Tappahannock HospitalLymphocytes/100 WBC (Bld)7 %Low24 - 43 %[facility] HospitalLymphocytes/100 WBC (Bld)1.17 %[facility] HospitalH (RBC) [Entitic mass]29.7 pg25.2 - 33.5 pgBon [facility] AndersonHC (RBC) [Mass/Vol]35.7 g/xCApkj46.4 - 34.8 g/dLBon [facility] AndersonV (RBC) [Entitic vol]83.1 fL82.6 - 102.9 fLRiverside Tappahannock Hospital Monocytes/100 WBC (Bld)7 %3 - 12 %[facility] HospitalMonocytes/100 WBC (Bld)1.2 %[facility] HospitalNeutrophils/100 WBC (Bld)84 %High36 - 65 %[facility] HospitalNucleated RBC/100 WBC (Bld) [Ratio]0 %0.0 per 100 WBCBon [facility] Medical CenterPlatelet mean volume (Bld) [Entitic vol]10.9 fL8.1 - 13.5 fL Bon [facility] Medical CenterPlatelets (Bld) [#/Vol]411 10*3/uLBon [facility] Medical CenterRBC (Bld) [#/Vol]5.56 10*6/uLHigh3.95 - 5.11 m/[facility] Segmented neutrophils/100 WBC (Bld)14.74 %HighBon [facility] Medical CenterWBC other (Bld) [#/Vol]17.3HighBon [facility] ServicesCBC with Diffon [id number]. Basophil0.08 k/uLNormal0.00-0.20[facility] Comment on above:Performed By: #### APTMUT, AMTHFR #### [facility] [address] [place], [place] [id number] Compliance Nurse: Melchor Rubin MD #### LUPPRO #### [facility] [address] [place], [place] [id number] Compliance Nurse: Temo Tipton MD [facility] [address] [place] [address] [place] [address] Compliance Nurse: Juana Singh.Imm.Granulocyte0.10 k/uLNormal0.00-0.30[facility] Medical CenterComment on above:Performed By: #### APTMUT, AMTHFR #### [facility] [address] [place] [address] Compliance Nurse: Melchor Rubin MD #### LUPPRO #### [facility] [address] [place], [place] [phone] Compliance Nurse: Temo Tipton MD [facility] [address] [place] [address] [place] [address] Compliance Nurse: Juana Singh.Neutrophil (Seg)14.74 k/uLHigh1.50-8.10[facility] Medical CenterComment on above:Performed By: #### APTMUT, AMTHFR #### [facility] [address] [place] [address] Compliance Nurse: Melchor Rubin MD #### LUPPRO #### [address] [address] Compliance Nurse: Temo Tipton MD [address] [place], [place] [phone] Compliance Nurse: Christian Hanley MDBasophils/100 WBC (Bld)1 %Normal0-2[facility] Kirkwood HospitalComment on above:Performed By: #### APTMUT, AMTHFR #### [facility] [address] [place] [address] Compliance Nurse: Melchor Rubin MD #### LUPPRO #### [address] [address] Compliance Nurse: Temo Tipton MD [address] [place] [address] Compliance Nurse: Christian Hanley MDEosinophils (Bld) [#/Vol]0.03 10*3/uLNormal 0.00-0.44[facility] HospitalComment on above:Performed By: #### APTMUT, AMTHFR #### [facility] [address] [place] [address] Compliance Nurse: Melchor Rubin MD #### LUPPRO #### [address] [address] Compliance Nurse: Temo Tipton MD [address] [place] [address] Compliance Nurse: PAPO Singhosinophils/100 WBC (Bld)0 %Low1-4[facility] Centercy [facility]wood HospitalComment on above:Performed By: #### APTMUT, AMTHFR #### [facility] [address] [place] [address] Compliance Nurse: Melchor Rubin MD #### LUPPRO #### [address] [address] Compliance Nurse: Temo Tipton MD [address] [place], [place] [phone] Compliance Nurse: Christian Hanley MDErythrocyte distribution width (RBC) [Ratio]13.1 % Qbsejp44.8-14.4[facility] HospitalComment on above:Performed By: #### APTMUT, AMTHFR #### [facility] [address] [place] [address] Compliance Nurse: Melchor Rubin MD #### LUPPRO #### [address] [address] Compliance Nurse: Temo Tipton MD [address] [place] [phone] Compliance Nurse: Christian Hanley MDHematocrit (Bld) [Volume fraction]46.2 %Normal 36.3-47.1Mcherrington hospitaly Kirkwood HospitalComment on above:Performed By: #### APTMUT, AMTHFR #### [facility] [address] [place] [address] Compliance Nurse: Melchor Rubin MD #### LUPPRO #### [address] [address] Compliance Nurse: Temo Tipton MD [address] [place] [phone] Compliance Nurse: Christian Hanley MDHemoglobin (Bld) [Mass/Vol]16.5 g/tHDnfc78.9-15.1 [facility] CenterComment on above:Performed By: #### APTMUT, AMTHFR #### [facility] [address] [place] [address] Compliance Nurse: Melchor Rbuin MD #### LUPPRO #### [facility] [address] [place] [address] Compliance Nurse: Temo Tipton MD [address] [place] [phone] Compliance Nurse: Christian Hanley MDImmature granulocytes/100 WBC (Bld)1 %Dvaf4MahgdMetrohealth Cleveland Heights Medical CenterComment on above:Performed By: #### APTMUT, AMTHFR #### [facility] [address] [place] [address] Compliance Nurse: Melchor Rubin MD #### LUPPRO #### [facility] [address] [place] [address] Compliance Nurse: Temo Tipton MD [address] [place] [phone] Compliance Nurse: Christian Hanley MDLymphocytes (Bld) [#/Vol]1.17 10*3/uLNormal 1.10-3.70[facility] Medical CenterComment on above:Performed By: #### APTMUT, AMTHFR #### [facility] [address] [place] [address] Compliance Nurse: Melchor Rubin MD #### LUPPRO #### [facility] [address] [place] [address] Compliance Nurse: Temo Tipton MD [address] [place] [phone] Compliance Nurse: Christian Hanley MDLymphocytes/100 WBC (Bld)7 %Rpm03-65Odvtz Greenwich HospitalComment on above:Performed By: #### APTMUT, AMTHFR #### [facility] [address] [place] [address] Compliance Nurse: Melchor Rubin MD #### LUPPRO #### [facility] [address] [place] [address] Compliance Nurse: Temo Tipton MD [address] [place], [place] 5896383 Compliance Nurse: KARLY Singh (RBC) [Entitic mass]29.7 icZpgptr57.2-33.5 [facility] CenterComment on above:Performed By: #### APTMUT, AMTHFR #### [facility] [address] [place] [address] Compliance Nurse: Melchor Rubin MD #### LUPPRO #### [address] [address] Compliance Nurse: Temo Tipton MD [address] [place] [address] Compliance Nurse: KARLY SinghC (RBC) [Mass/Vol]35.7 g/pXAicj45.4-34.8[facility] Medical CenterComment on above:Performed By: #### APTMUT, AMTHFR #### [facility] [address] [place] [address] Compliance Nurse: Melchor Rubin MD #### LUPPRO #### [address] [address] Compliance Nurse: Temo Tipton MD [address] [place], [place] 7693483 Compliance Nurse: CATALINO Singh (RBC) [Entitic vol]83.1 sAHkogxi66.6-102.9 [facility] CenterComment on above:Performed By: #### APTMUT, AMTHFR #### [facility] [address] [place] [address] Compliance Nurse: Melchor Rubin MD #### LUPPRO #### [address] [address] Compliance Nurse: Temo Tipton MD [address] [place] [address] Compliance Nurse: Christian Hanley MDMonocytes (Bld) [#/Vol]1.20 10*3/uLNormal0.10-1.20 [facility] CenterComment on above:Performed By: #### APTMUT, AMTHFR #### [facility] [address] [place] [address] Compliance Nurse: Melchor Rubin MD #### LUPPRO #### [facility] [address] [place] [address] Compliance Nurse: Temo Tipton MD [address] [place] [address] Compliance Nurse: Christian Hanley MDMonocytes/100 WBC (Bld)7 %Normal3-12[facility] CenterComment on above:Performed By: #### APTMUT, AMTHFR #### [facility] [address] [place] [address] Compliance Nurse: Melchor Rubin MD #### LUPPRO #### [address] [address] Compliance Nurse: Temo Tipton MD [address] [place] [address] Compliance Nurse: Christian Hanley MDNeutrophil (Seg)84 %Fxem12-15ZttftMetrohealth Cleveland Heights Medical Center Comment on above:Performed By: #### APTMUT, AMTHFR #### [facility] [address] [place] [address] Compliance Nurse: Melchor Rubin MD #### LUPPRO #### [facility] [address] [place] [address] Compliance Nurse: Temo Tipton MD [address] [place], [place] [phone] Compliance Nurse: Christian Hanley MDNRBC Automated0.0 per 100 WBCNormal0.0[facility] CenterComment on above:Performed By: #### APTMUT, AMTHFR #### [facility] [address] [place] [address] Compliance Nurse: Melchor Rubin MD #### LUPPRO #### [facility] [address] [place] [address] Compliance Nurse: Temo Tipton MD [facility] [address] [place] [address] [place] [address] Compliance Nurse: Benton Singh mean volume (Bld) [Entitic vol]10.9 fL Normal8.1-13.5[facility] Medical CenterComment on above:Performed By: #### APTMUT, AMTHFR #### [facility] [address] [place] [address] Compliance Nurse: Melchor Rubin MD #### LUPPRO #### [facility] [facility] [address] [place] [address] Compliance Nurse: Temo Tipton MD [address] [place] [address] Compliance Nurse: Elvis Singh (Bld) [#/Vol]411 10*3/kJAamhid719-382 [facility] CenterComment on above:Performed By: #### RAYMONDMUT, AMTHFR #### [facility] [address] [place] [address] Compliance Nurse: Melchor Rubin MD #### LUPPRO #### [facility] [address] [place] [address] Compliance Nurse: Temo Tipton MD [facility] [address] [place] [address] [place] [address] Compliance Nurse: TANIA Singh (Bld) [#/Vol]5.56 10*6/uLHigh3.95-5.11[facility] Medical CenterComment on above:Performed By: #### APTMUT, AMTHFR #### [facility] [address] [place] [address] Compliance Nurse: Melchor Rubin MD #### LUPPRO #### [facility] [address] [place] [address] Compliance Nurse: Temo Tipton MD [facility] [address] [place] [address] [place] [address] Compliance Nurse: Christian Hanley MDMONTEFIORE [facility] (d) [#/Vol]17.3 10*3/uLHigh3.5-11.3Mcherrington hospitaly Greenwich HospitalComment on above:Performed By: #### RAYMONDMUT, AMTHFR #### [facility] [address] [place] [address] Compliance Nurse: Melchor Rubin MD #### LUPPRO #### [facility] [address] [place] [address] Compliance Nurse: Temo Tipton MD [facility] [address] [place] [address] [place] [address] Compliance Nurse: Christian Hanley [facility] [id number] [Mass/Vol]5.4 g/dLHigh3.5 - 5.2 g/dLBon [facility] Medical CenterAlbumin/Globulin [Mass ratio]1.4 {ratio}1.0 - 2.5Bon [facility] Medical CenterALP [Catalytic activity/Vol]97 U/L35 - 104 U/LBon [facility] CenterALT [Catalytic activity/Vol]216 U/LHigh10 - 35 U/LBon [facility] Medical CenterAnion gap [Moles/Vol]22 mmol/LHigh9 - 16 mmol/LBon [facility] Medical CenterAST [Catalytic activity/Vol]90 U/LHigh10 - 35 U/LBon [facility] Medical CenterBilirubin [Mass/Vol]1.3 mg/dLHigh0.00 - 1.20 mg/dLBon [facility] Calcium [Mass/Vol]10.1 mg/dL8.6 - 10.4 mg/dLBon SecUniversity [facility] HealthChloride [Moles/Vol]84 mmol/LLow98 - 107 mmol/LBon SecUniversity [facility] Center [facility] HealthCO2 [Moles/Vol]29 mmol/L20 - 31 mmol/LBon SecUniversity [facility] HealthCreatinine [Mass/Vol]1.9 mg/dLHigh 0.50 - 0.90 mg/dLBon SecUniversity [facility] HealthEst, Glom Filt Dpap87Fbk- PINFBon [facility] Medical CenterComment on above: These results are not intended [...] that affects renal tubular secretion. Glucose [Mass/Vol]110 mg/iCVyhm32 - 99 mg/dLBon [facility] HealthPotassium [Moles/Vol]2.5 mmol/LCritically low3.7 - 5.3 mmol/LBon [facility] Protein [Mass/Vol]9.4 g/dLHigh6.6 - 8.7 g/dLBon [facility] Medical CenterSodium [Moles/Vol]135 mmol/BYdu538 - 145 mmol/LBon [facility] HealthUrea nitrogen [Mass/Vol]32 mg/dLHigh6 - 20 mg/dLBon [facility] Medical CenterUrea nitrogen/Creatinine [Mass ratio]17 mg/mg9 - 20Bon [facility] HealthCT Abdomen and Pelvis W contrast Clyde 80-49-3972Jscbevoex Study observation (narrative)Bon [facility] Campusp Metabolic Profon 68-47-7795Xnhmpgj [Mass/Vol]5.4 g/dL High3.5-5.2[facility] Greenwich HospitalComment on above:Performed By: #### KELLEN SERRANO #### [facility] [address] [place] [address] Compliance Nurse: Melchor Rubin MD #### LUPPRO #### [facility] [address] [place] [address] Compliance Nurse: Temo Tipton MD [facility] [address] [place] [address] Dr. [place], [place] [id number] Compliance Nurse: Christian Hanley MDAlbumin/Glob Ratio1.0Dhvifp8.0-2.5[facility] Medical CenterComment on above:Performed By: #### APTMUT, AMTHFR #### [facility] [address] [place] [address] Compliance Nurse: Melchor Rubin MD #### LUPPRO #### [address] [address] Compliance Nurse: Temo Tipton MD [address] [place], [place] 5611483 Compliance Nurse: Edil Singhkaline Phos97 U/PIjoxnh26-648JqzyhMetrohealth Cleveland Heights Medical CenterComment on above:Performed By: #### APTMUT, AMTHFR #### [facility] [address] [place] [address] Compliance Nurse: Melchor Rubin MD #### LUPPRO #### [address] [address] Compliance Nurse: Temo Tipton MD [address] [place], [place] 1879983 Compliance Nurse: EDWIN Singh [Catalytic activity/Vol]216 U/IPiey56-41JchftMetrohealth Cleveland Heights Medical CenterComment on above:Performed By: #### APTMUT, AMTHFR #### [facility] [address] [place] [address] Compliance Nurse: Melchor Rubin MD #### LUPPRO #### [address] [address] Compliance Nurse: Temo Tipton MD [facility] [address] [place] [address] Dr. [place], [place] 1396083 Compliance Nurse: Christian Sturtz, MDAnion gap [Moles/Vol]22 mmol/LHigh9-16[facility] CenterComment on above:Performed By: #### APTMUT, AMTHFR #### [facility] [address] [place] [address] Compliance Nurse: Melchor Rubin MD #### LUPPRO #### [facility] [address] [place] [address] Compliance Nurse: Temo Tipton MD [facility] [address] [place] [address] Dr[place], [place] 0627983 Compliance Nurse: Christian Hanley MDAST [Catalytic activity/Vol]90 U/ZGxng27-45UpafuMetrohealth Cleveland Heights Medical CenterComment on above:Performed By: #### APTMUT, AMTHFR #### [facility] [address] [place] [address] Compliance Nurse: Melchor Rubin MD #### LUPPRO #### [address] [address] Compliance Nurse: Temo Tipton MD [facility] [address] [place] [address] [place] [address] Compliance Nurse: Christian Hanley MDBilirubin [Mass/Vol]1.3 mg/dLHigh0.00-1.20[facility] CenterComment on above:Performed By: #### APTMUT, AMTHFR #### [facility] [address] [place] [address] Compliance Nurse: Melchor Rubin MD #### LUPPRO #### [address] [address] Compliance Nurse: Temo Tipton MD [facility] [address] [place] [address] [place] [address] Compliance Nurse: Christian Hanley MDBUN/CRE Abfoi93Romwiw7-30Mviyj [facility] Comment on above:Performed By: #### APTMUT, AMTHFR #### [facility] [address] [place] [address] Compliance Nurse: Melchor Rubin MD #### LUPPRO #### [address] [address] Compliance Nurse: Temo Tipton MD [address] [place], [place] [address]83 Compliance Nurse: JESSICA Singhalcium [Mass/Vol]10.1 mg/dLNormal8.6-10.4[facility] HospitalComment on above:Performed By: #### APTMUT, AMTHFR #### [facility] [address] [place] [address] Compliance Nurse: Melchor Rubin MD #### LUPPRO #### [address] [address] Compliance Nurse: Temo Tipton MD [address] [place], [place] [phone] Compliance Nurse: JESSICA Singhhloride [Moles/Vol]84 mmol/AEvi42-038Gygyn [facility]iffin HospitalComment on above:Performed By: #### APTMUT, AMTHFR #### [facility] [address] [place] [address] Compliance Nurse: Melchor Rubin MD #### LUPPRO #### [address] [address] Compliance Nurse: Temo Tipton MD [address] [place], [place] 504[address]83 Compliance Nurse: JESSICA SinghO2 [Moles/Vol]29 mmol/OYqdayr43-46Rzyai [facility] HospitalComment on above:Performed By: #### APTMUT, AMTHFR #### [facility] [address] [place] [address] Compliance Nurse: Melchor Rubin MD #### LUPPRO #### [facility] [address] [place] [address] Compliance Nurse: Temo Tipton MD [address] [place] [address] Compliance Nurse: JESSICA Singhreatinine [Mass/Vol]1.9 mg/dLHigh0.50-0.90[facility] CenterComment on above:Performed By: #### APTMUT, AMTHFR #### [facility] [address] [place] [address] Compliance Nurse: Melchor Rubin MD #### LUPPRO #### [address] [address] Compliance Nurse: Temo Tipton MD [address] [place] [address] Compliance Nurse: Christian Hanley MDGFR/1.73 sq M.predicted among non-blacks MDRD (S/P/Bld) [Vol rate/Area]38 mL/min/{1.73_m2}Low>60[facility] CenterComment on above:Result Comment: These results are not [...] #### APTMUT, AMTHFR #### [facility] [address] [place] [address] Compliance Nurse: Melchor Rubin MD #### LUPPRO #### [facility] [address] [place] [address] Compliance Nurse: Temo Tipton MD [address] [place] [address] Compliance Nurse: Christian Hanley MDGlucose [Mass/Vol]110 mg/sNXbvs82-72Qpspm Kirkwood HospitalComment on above:Performed By: #### APTMUT, AMTHFR #### [facility] [address] [place] [address] Compliance Nurse: Melchor Rubin MD #### LUPPRO #### [address] [address] Compliance Nurse: Temo Tipton MD [address] [place] [id number] Compliance Nurse: Christian Hanley MDPotassium [Moles/Vol]2.5 mmol/LCritically low 3.7-5.3MThe University of Toledo Medical Center HospitalComment on above:Performed By: #### APTMUT, AMTHFR #### [facility] [address] [place] [address] Compliance Nurse: Melchor Rubin MD #### LUPPRO #### [address] [address] Compliance Nurse: Temo Tipton MD [address] [place] [address] Compliance Nurse: Christian Hanley MDProtein [Mass/Vol]9.4 g/dLHigh6.6-8.7[facility] CenterComment on above:Performed By: #### MAGGIE, AMTHFR #### [facility] [address] [place] [address] Compliance Nurse: Melchor Rubin MD #### LUPPRO #### [address] [address] Compliance Nurse: Temo Tipton MD [address] [place] [address] Compliance Nurse: Christian Hanley MDSodium [Moles/Vol]135 mmol/GKkn957-280Hthdy [facility] HospitalComment on above:Performed By: #### APTMUT, AMTHFR #### [facility] [address] [place] [address] Compliance Nurse: Melchor Rubin MD #### LUPPRO #### [facility] [address] [place] [address] Compliance Nurse: Temo Tipton MD [facility] [address] [place] [address] Dr. [place], [place] [address] Compliance Nurse: Christian Hanley MDUrea nitrogen [Mass/Vol]32 mg/dL96 Cuevas StreetComment on above:Performed By: #### APTMUT, AMTHFR #### [facility] [address] [place] [address] Compliance Nurse: Melchor Rubin MD #### LUPPRO #### [facility] [address] [place] [address] Compliance Nurse: Temo Tipton MD [facility] [address] [place] [address] Dr. [place], [place] [phone] Compliance Nurse: Christian Hanley MDEKG 12 LeadOrdered By: Richard Solis on 04-25-2025 Atrial Lsfw555ARDJhn [employer] Work Phone: P Wyne09ejcympkOfbFontself Work Phone: [phone]-R Nysvlnpg543 msFontself Work Phone: [phone]-T Repjxocb765 msBon SecAwesome.me Work Phone: QRS Mfobwuzh06 msBon SecAwesome.me Work Phone: QTc Calculation (Pio)456 msBon SecAwesome.me Work Phone: R Xrag034blivoycTjy [employer] Work Phone: [phone] Ebey40wokygroGfo [facility] Hospital - ColumbusYABUY Work Phone: Ventricular Scqk630LTHWky [employer] Work Phone: Bon [employer] Work Phone: ekg 12 Leadon 47-48-4819Yyiye tachycardia Rightward axis Nonspecific ST abnormality Abnormal ECG ECG not diagnostic for Acute Coronary Syndrome; consider clinical findings No previous ECGs available Confirmed by Richard Solis ([id number]) on 04/25/2025 8:17:48 PMHIGGINS GENERAL HOSPITALRichard Solis MD - 04/25/2025 Sinus tachycardia Rightward axis Nonspecific ST abnormality Abnormal ECG ECG not diagnostic for Acute Coronary Syndrome; consider clinical findings No previous ECGs available Confirmed by Richard Solis ([id number]) on 04/25/2025 8:17:48 PM Bon [facility] Medical CenterHCG Qualitative, Serumon 49-05-7497TOH ( test) QlNegativeNEGATIVERiverside Tappahannock HospitalComment on above:Specimens with hCG levels near the threshold of the test (25 mIU/mL) may give a negative or indeterminate result. In such cases, another test should be performed with a new specimen in 48-72 hours. If early is suspected clinically in this setting, correlation with quantitative serum b-hCG level is suggested. [facility] Zinc softwareHCG Screen, Bloodon 72-94-4024NTT Screen, BloodNegative NormalNEGMercy Milford Hospital on above:Result Comment: Specimens with hCG levels near the threshold of the test (25 mIU/mL) may give a negative or indeterminate result. In such cases, another test should be performed with a new specimen in 48-72 hours. If early is suspected clinically in this setting, correlation with quantitative serum b-hCG level is suggested.Performed By: #### APTMUT, AMTHFR #### [facility] [address] [place] [address] Compliance Nurse: Melchor Rubin MD #### LUPPRO #### [facility] [address] [place] [address] Compliance Nurse: Temo Tipton MD [facility] [address] [place] [address] Compliance Nurse: Christian Hanley MDLipaseon 07-56-5321Hvrwcj [Catalytic activity/Vol] 96 U/LHigh13 - 60 U/LBon [facility] Medical CenterLipase [Catalytic activity/Vol]96 U/IYasf31-96Idjdw Greenwich HospitalComment on above:Performed By: #### APTMUT, AMTHFR #### [facility] [address] [place] [address] Compliance Nurse: Melchor Rubin MD #### LUPPRO #### [facility] [address] [place], [place] 1640708 Compliance Nurse: Temo Tipton MD [facility] [address] [place] [address] Compliance Nurse: Christian Hanley MDMagnesiumon 73-65-9121Bxqhotaseldevp and review of laboratory resultsAbnormalRiverside Tappahannock HospitalMagnesium [Mass/Vol]2.9 mg/dL High1.6 - 2.6 mg/dLBon [facility] ServicesMagnesium [Mass/Vol]2.9 mg/dLHigh1.6-2.6Mer[facility]wich HospitalComment on above:Performed By: #### MG #### [facility] [address] [place] [address] Compliance Nurse: Christian Hanley MDMicroscopic Urinalysison 21-76-4336Utfymmowbv cells LM.HPF (Urine sed) [#/Area]2 TO 5Bon [facility] Medical CenterRBC LM.HPF (Urine sed) [#/Area]NoneBon [facility] Medical CenterWBC LM.HPF (Urine sed) [#/Area]0 TO 2 Bon [facility] Centerours [facility] HospitalNo Panel Informationon 50-75-9246Uzwjknyhtpjiwg and review of laboratory resultsAbnormalBon SecPembina County [facility] Hospital HealthUrinalysison 68-01-8128Zgvqfxxha Ql (U) NegativeNEGATIVEBon SecUniversity [facility] Center [facility] HealthClarity (U)ClearClearBon SecUniversity Medical Center [facility] HealthColor (U)YellowYellowBon [facility] CenterGlucose Test strip (U) [Mass/Vol]NegativeNEGATIVE mg/dLBon [facility] CenterHemoglobin Auto test strip Ql (U)TRACEAbnormalNEGATIVEBon [facility] CenterInterpretation and review of laboratory resultsAbnormalBon SecMorrow County HospitalKetones (U) [Mass/Vol]TRACEAbnormalNEGATIVE mg/dLBon [facility] CenterLeukocyte esterase Test strip Ql (U)NegativeNEGATIVEBon [facility] Medical CenterNitrite Ql (U)Negative NEGATIVEBon [facility] Medical CenterpH (U)6.5 [pH]5.0 - 9.0Bon [facility] Protein (U) [Mass/Vol]NegativeNEGATIVE mg/dLBon [facility] Medical CenterSpecific gravity (U) [Rel density]Low1.010 - 1.020Bon [facility] Medical CenterUrobilinogen Qn (U)Normal0.0 - 1.0 EU/dLBon [facility] Urinalysis, Routineon 34-49-5554Xxjcqtzlx, SemiQt,UrNegativeNormalMercy Health St. Rita's Medical CenterComment on above:Performed By: #### TYS #### [facility] [address] [place] [address] Compliance Nurse: Bessy Singh, UrineTRACEUniversity Hospitals [facility] Comment on above:Performed By: #### TYS #### [facility] [address] [place] [address] Compliance Nurse: JESSICA Singhlarity (ClearNormalCMercy Health Allen Hospital Comment on above:Performed By: #### TYS #### [facility] [address] [place] [address] Compliance Nurse: JESSICA Singholor (YellowNoKettering Health – Soin Medical Center Comment on above:Performed By: #### TYS #### [facility] [address] [place] [address] Compliance Nurse: Christian Hanley MDGlucose Ql (U)NegativeNormalNEGMercy Greenwich HospitalComment on above:Performed By: #### TYS #### [facility] [address] [place] [address] [place] [address] Compliance Nurse: Christian Hanley MDKetones Ql (U)TRACEAbnormalNEGMercy Kirkwood HospitalComment on above:Performed By: #### TYS #### [facility] [address] [place] [address] Dr. [place], [place] 4022083 Compliance Nurse: Christian Hanley MDLeukocyte esterase Test strip Ql (U)NegativeNormal NEGMercy Greenwich HospitalComment on above:Performed By: #### TYS #### [address] [place] [address] Compliance Nurse: Christian Hanley MDNitrite,UrNegativeNormalNEGMetrohealth [facility] Center Comment on above:Performed By: #### TYS #### [facility] [address] [place] [address] [place] [address] Compliance Nurse: NAE Singh,Ur6.9Ttlhgk1.0-9.0[facility] CenterComment on above:Performed By: #### TYS #### [address] [place] [address] Compliance Nurse: AWILDA Singhrotein Ql (U)NegativeNormalNEGWayne Hospital HospitalComment on above:Performed By: #### TYS #### [facility] [address] [place] [address] [place] [address] Compliance Nurse: FREYA Singhpec. [place],Ur<1.078Rhy7.010-1.020Mer[facility] HospitalComment on above:Performed By: #### TYS #### [facility] [address] [place] [address] Dr. [place], [place] 1129583 Compliance Nurse: Christian Hanley MDUrobilinogen,UrNormalNormal0.0-1.0[facility] CenterComment on above:Performed By: #### TYS #### [facility] [address] [place], [place] 2107483 Compliance Nurse: Christian Hanley MDUrinalysis,Microon 37-21-7386Jlodgyvbpc cells LM Ql (Urine sed)2 TO 0Teysqb7-40NmsxoMetrohealth Cleveland Heights Medical CenterComment on above:Performed By: #### TYS #### [facility] [address] [place] [address] Compliance Nurse: Louann Singh RBC'sNoneNormal0-2MDayton VA Medical Center Comment on above:Performed By: #### TYS #### [facility] [address] [place] [address] Compliance Nurse: Louann Singh WBC's0 TO 4Ckjgwq9-5CmclhMetrohealth Cleveland Heights Medical Center Comment on above:Performed By: #### TYS #### [facility] [address] [place], [place] 2625783 Compliance Nurse: Christian Hanley MDBADhruv METABOLIC PANELon 75-96-9694Rkczk gap [Moles/Vol]11 mmol/LNormal5-15[facility] HospitalComment on above: Performed By: #### IJEOMA CMP, 1988-02, , 80064-5, 5643-2, 2157-03 #### [facility] ([id number]) [address] [place] [address]Gannpgw [Mass/Vol]9.4 mg/dLNormal8.5-10.5Pro[facility]wood General HospitalComment on above:Performed By: #### ANISHA CMP, 1988-02, 39558-2, 52374-0, 5643-2, 2156-6 #### [facility] ([id number]) [address] [place] [address]Miorffto [Moles/Vol]104 mmol/IWjfpgs62-150VkrAswhfsProMedica Defiance Regional HospitalComment on above:Performed By: #### SYED RAPHAEL, 1988-02, , 92096-7, 5642-2, 2157-03 #### [facility] ([id number]) [address] [place] [address]UF6 [Moles/Vol]24 mmol/QTgtrbv75-32FolZptziqDayton Osteopathic Hospital Comment on above:Performed By: #### SYED RAPHAEL, 1988-02, , 82489-7, 5642-2, 2157-03 #### [facility] ([id number]) [address] [place] [address]Gevvcargdb [Mass/Vol]0.91 mg/dLNormal0.40-1.00Pro[facility]iance Regional HospitalComment on above:Result Comment: METHOD TRACEABLE TO IDMS STANDARD Performed By: #### SYED RAPHAEL, 1988-02, , 24722-4, 5642-2, 2157-03 #### [facility] ([id number]) [address] [place] [address]LUR/1.73 sq M.predicted among non-blacks MDRD (S/P/Bld) [Vol rate/Area]90 mL/min/{1.73_m2}Normal>=60ProMedica [facility]iance Regional HospitalComment on above:Result Comment: Reported eGFR is based on the CKD-EPI 2020 equation that does not use a race coefficient.Performed By: #### SYED RAPHAEL, 1988-02, , 78187- 0, 5642-2, 2157-03 #### [facility] ([id number]) [address] [place] [address] 20[address]Yhdflef [Mass/Vol]89 mg/uNRumvcr89-15MgbUodubvProMedica Defiance Regional Hospital Comment on above:Performed By: #### SYED RAPHAEL, 1988-02, , 07025-5, 5643-2, 2157-03 #### [facility] ([id number]) [address] [place], [place] [address]Iihpgzczn [Moles/Vol]4.2 mmol/LNormal3.5-5.0ProBig Bend Regional Medical CenterComment on above:Performed By: #### IJEOMA [facility], 1988-02, , 68289-8, 2, 2157-03 #### [facility] ([id number]) [address] [place] [address]Bcgzui [Moles/Vol]139 mmol/RUsefzh451-472XxvZvvsix [facility]remont HospitalComment on above:Performed By: #### SYED RAPHAEL, 1988-02, , 23158-3, 5642-11, 2157-03 #### [facility] ([id number]) [address] [place] [address]88[address]Mmua nitrogen [Mass/Vol]18 mg/dLNormal5-23ProBig Bend Regional Medical CenterComment on above:Performed By: #### SYED RAPHAEL, 1988-02, , 49902-8, 5642-11, 2157-03 #### [facility] ([id number]) [address] [place] [address]GKJSBHLLETYIB, Son 81-80-3611QBOKKYITIOYTP, S29.6 mcg/mLNormal 10.0-40.0ProBig Bend Regional Medical CenterComment on above:Result Comment: ADDITIONAL INFORMATION This test was developed and its performance characteristics determined by [facility] in a manner consistent with CLIA requirements. This test has not been cleared or approved by the U.S. Food and Drug Administration. Test Performed by: [place] [id number] Compliance Nurse: Ulysses Juarez Ph.D.; CLIA# [id number] By: #### SYED RAPHAEL, 1988-02, , 57483-8, 56-2, 2157-03 #### [facility] ([id number]) [address] [place] [address]WGCHE METABOLIC PANELon 47-89-4794Dewmb gap [Moles/Vol]9 mmol/L Normal5-15ProBig Bend Regional Medical CenterComment on above:Performed By: #### SYED RAPHAEL, 1988-02, , 65846-5, 2, 2157-03 #### [facility] ([id number]) [address] [place] [address] 87[address]Dnickld [Mass/Vol]7.8 mg/dLLow8.5-10.5PDayton Osteopathic HospitalComment on above:Performed By: #### SYED RAPHAEL, 1988-02, , 92202-4, 5642-2, 2157-03 #### [facility] ([id number]) [address] [place] [address] 564[address]Zeqccwpi [Moles/Vol]98 mmol/LHtzpam31-827CrsYuuxdsBig Bend Regional Medical CenterComment on above:Performed By: #### SYED RAPHAEL, 1988-02, , 65337-6, 5642-2, 2157-03 #### [facility] ([id number]) [address] [place] [address]UW8 [Moles/Vol]27 mmol/HJcnjwp47-98EcxPqularDayton Osteopathic Hospital Comment on above:Performed By: #### SYED RAPHAEL, 1988-02, , 68737-1, 5643-2, 2157-03 #### [facility] ([id number]) [address] [place] [address]Oflzylgvap [Mass/Vol]1.75 mg/dLHigh0.40-1.00Pro[facility]iance Regional HospitalComment on above:Result Comment: METHOD TRACEABLE TO IDMS STANDARD Performed By: #### SYED RAPHAEL, 1988-02, , 70503-6, 2, 2157-03 #### [facility] ([id number]) [address] [place] [address] 89[address]GIK/1.73 sq M.predicted among non-blacks MDRD (S/P/Bld) [Vol rate/Area]41 mL/min/{1.73_m2}Low>=60ProBig Bend Regional Medical CenterComment on above: Result Comment: Reported eGFR is based on the CKD-EPI 2020 equation that does not use a race coefficient.Performed By: #### SYED RAPHAEL, 1988-02, , 0, 5642-11, 2157-03 #### [facility] ([id number]) [address] [place] [address] 80168Ofqjivc [Mass/Vol]91 mg/qIYhgdkp34-90QmwSjhweaProMedica [facility]iance [facility] Comment on above:Performed By: #### SYED RAPHAEL, 1988-02, , 16271-0, 5642-11, 2157-03 #### [facility] ([id number]) [address] [place] [address] 06297Sefqhdyfl [Moles/Vol]3.1 mmol/LLow3.5-5.0ProBig Bend Regional Medical CenterComment on above:Performed By: #### SYED RAPHAEL, 1988-02, , 49905-3, 5642-11, 2157-03 #### [facility] ([id number]) [address] [place] [address] 76371Jjfjbg [Moles/Vol]134 mmol/MWxpqqa579-232BmpExbmfq [facility] HospitalComment on above:Performed By: #### SYED RAPHAEL, 1988-02, , 61920-0, 5643-2, 2157-03 #### [facility] ([id number]) [address] [place] [address] 48648Ubci nitrogen [Mass/Vol]21 mg/dLNormal5-23ProSelect Medical [facility] Hospital - Dublinca Bellwood General HospitalComment on above:Performed By: #### IJEOMA, [facility], 1988-02, , 58263-5, 5643-2, 2157-03 #### [facility] ([id number]) [address] [place] [address] 31456BZT WITH AUTO DIFFERENTIALon 72-04-1794JZAXMHLIH ABSOLUTE COUNT (10*3/UL) BY AUTOMATED COUNT0.1 10*3/uLNormal0.0-0.2PDayton Osteopathic Hospital Comment on above:Performed By: #### IJEOMA, [facility], 1988-02, , 61666-7, 5643-2, 2157-03 #### [facility] ([id number]) [address] [place] [address] 44737KJOSKKMDH RELATIVE PERCENT BY AUTOMATED COUNT0.5 %Normal [facility] HospitalComment on above:Performed By: #### IJEOMA, [facility], 1988-02, , 82827-0, 43-2, 2157-03 #### [facility] ([id number]) [address] [place] [address] 90191QHCJIRXCJKE DIFFERENTIAL TYPEAUTOMATED DIFFERENTIALNormal [facility] HospitalComment on above:Performed By: #### IJEOMA, [facility], 1988-02, , 97595-0, 5643-2, 2157-03 #### [facility] ([id number]) [address] [place] [address] 59115Qcbgwmmepwd (Bld) [#/Vol]0.1 10*3/uLNormal0.0-0.4Pro[facility]ica [facility]aginaw HospitalComment on above:Performed By: #### CBCSusie, SYED, 1988-02, , 54769-1, 5643-2, 2157-03 #### [facility] ([id number]) [address] [place] [address] 77396BSPLPTZHFYZ RELATIVE PERCENT BY AUTOMATED COUNT0.6 %Normal [facility] HospitalComment on above:Performed By: #### IJEOMA, [facility], 1988-02, , 48040-5, 5643-2, 2157-03 #### [facility] ([id number]) [address] [place] [address] 63422Auwjijxqzea distribution width (RBC) [Ratio]13.2 %Nzymlt84.5-15 [facility] HospitalComment on above:Performed By: #### IJEOMA [facility], 1988-02, , 82157-8, 5642-2, 2157-03 #### [facility] ([id number]) [address] [place] [address] 07902Xoaflaqgek (Bld) [Volume fraction]45.2 %Zbsrgf10-66SxdWynyskProMedica Defiance Regional HospitalComment on above:Performed By: #### SYED RAPHAEL, 1988-02, , 86546-6, 5642-2, 2157-03 #### [facility] ([id number]) [address] [place] [address] 06242Bdsyrsgpfy (Bld) [Mass/Vol]15.7 g/cEEnda16.7-15.5ProMedica [facility]wood General HospitalComment on above:Performed By: #### CBCA, CMP, 1988-02, , 81086-6, 5643-2, 2157-03 #### [facility] ([id number]) [address] [place] [address] 51922LZAEMWKGJIR ABSOLUTE COUNT (10*3/UL) BY AUTOMATED COUNT2.7 10*3/uLNormal1.0-3.5ProMedica Bellwood General HospitalComment on above:Performed By: #### CBCA, CMP, 1988-02, , 23418-1, 5643-2, 2157-03 #### [facility] ([id number]) [address] [place] [address] 70128AILFYSNRBER RELATIVE PERCENT BY AUTOMATED COUNT19.3 %Normal ProMHenry Mayo Newhall Memorial HospitalComment on above:Performed By: #### CBCA, CMP, 1988-02, , 40309-1, 5643-2, 2157-03 #### [facility] ([id number]) [address] [place] [address] 32632TPK (RBC) [Entitic mass]29.2 hvLtdqvq01-49ZbsCzwhmmBig Bend Regional Medical CenterComment on above:Performed By: #### CBCA, CMP, 1988-02, , 53594-3, 5643-2, 2157-03 #### [facility] ([id number]) [address] [place] [address] 48216HXPX (RBC) [Mass/Vol]34.8 g/sOOuihcq97-12WhnIdjsooBig Bend Regional Medical CenterComment on above:Performed By: #### CBCA, CMP, 1988-02, , 19600-3, 43-2, 2157-03 #### [facility] ([id number]) [address] [place] [address] 63349THW (RBC) [Entitic vol]84 rURekrkx02-700LwpQbtstk [facility] HospitalComment on above:Performed By: #### CBCA, CMP, 1988-02, , 38352-5, 5643-2, 2157-03 #### [facility] ([id number]) [address] FLO[address] [place], [place] [address]DZESCXWAW ABSOLUTE COUNT (10*3/UL) BY AUTOMATED COUNT1.4 10*3/uLHigh0.0-0.9ProBig Bend Regional Medical CenterComment on above:Performed By: #### CBCA, CMP, 1988-02, , 16088-7, 5643-2, 2156-6 #### [facility] ([id number]) [address] [place] [address] 49501NGVTJRQQY RELATIVE PERCENT BY AUTOMATED COUNT10.3 %Normal [facility] HospitalComment on above:Performed By: #### CBCA, CMP, 1988-02, , 19526-0, 5643-2, 2157-03 #### [facility] ([id number]) [address] [place] [address] 19773TSLTYEUAJNW ABSOLUTE COUNT BY AUTOMATED COUNT9.7 10*3/uLHigh 1.5-6.6ProMedica Defiance Regional HospitalComment on above:Performed By: #### CBCA, CMP, 1988-02, , 98416-3, 5643-2, 2157-03 #### [facility] ([id number]) [address] [place] [address] 94273ABGLGMRWIEK RELATIVE PERCENT BY AUTOMATED COUNT69.3 %Normal [facility] HospitalComment on above:Performed By: #### CBCA, CMP, 1988-02, , 71607-3, 5643-2, 2157-03 #### [facility] ([id number]) [address] [place] [address] 08066Ihfrxqqa mean volume (Bld) [Entitic vol]8.2 fLNormal7-12 [facility] HospitalComment on above:Performed By: #### CBCA, CMP, 1988-02, , 98770-7, 5643-2, 2156-6 #### [facility] ([id number]) [address] [place] [address] 53217Sowbeuvmb (Bld) [#/Vol]492 10*3/eNPqqh117-982YrpNqovftBig Bend Regional Medical CenterComment on above:Performed By: #### ANISHA, CMP, 1988-02, 22525-3, 20720-2, 5643-2, 2157-03 #### [facility] ([id number]) [address] [place] [address] 56697TDE COUNT5.39 X10E12/LHigh3.8-5.2PDayton Osteopathic Hospital Comment on above:Performed By: #### IJEOMA, CMP, 1988-02, , 06455-5, 5643-2, 2157-03 #### [facility] ([id number]) [address] [place] [address] 71161TJK (Bld) [#/Vol]14.0 10*3/uLHigh4-11[facility] Comment on above:Performed By: #### IJEOMA, CMP, 1988-02, , 99021-6, 5643-2, 2157-03 #### [facility] ([id number]) [address] [place] [address] 11233QC TOTALon 11-38-0783LII464 U/RJpjs42-692ZhpLnlqshBig Bend Regional Medical CenterComment on above:Performed By: #### CBCA, CMP, 1988-02, , 75983-3, 5643-2, 2157-03 #### [facility] ([id number]) [address] [place] [address] 33221ISNJBCSYQZKWK METABOLIC PANELon 07-93-3612Xpohxur [Mass/Vol]5.7 g/dLHigh3.2-5.3PDayton Osteopathic HospitalComment on above:Performed By: #### CBCA, CMP, 1988-02, 25659-2, 08136-9, 5643-2, 2157-03 #### [facility] ([id number]) [address] [place] [address] 65614XKS [Catalytic activity/Vol]85 U/WLocynf12-179BpiTbmkyuBig Bend Regional Medical CenterComment on above:Performed By: #### SYED RAPHAEL, 1988-02, , 91582-0, 5643-2, 2157-03 #### [facility] ([id number]) [address] [place] [address] 03021EXO [Catalytic activity/Vol]32 U/LHigh<=31ProMedMiller Children's HospitalComment on above:Performed By: #### SYED RAPHAEL, 1988-02, , 94521-0, 5642-2, 2157-03 #### [facility] ([id number]) [address] [place] [address] 96910Ptxkb gap [Moles/Vol]18 mmol/LHigh5-15ProBig Bend Regional Medical CenterComment on above:Performed By: #### SYED RAPHAEL, 1988-02, , 91032-6, 5642-2, 2157-03 #### [facility] ([id number]) [address] [place] [address] 99833OTE [Catalytic activity/Vol]27 U/LNormal<=41ProBig Bend Regional Medical CenterComment on above:Performed By: #### SYED RAPHAEL, 1988-02, , 98558-3, 5643-2, 2157-03 #### [facility] ([id number]) [address] [place] [address] 54311Efsfkulqq [Mass/Vol]1.1 mg/dLNormal0.3-1.2PDayton Osteopathic HospitalComment on above:Performed By: #### SYED RAPHAEL, 1988-02, , 26803-6, 5643-2, 2157-03 #### [facility] ([id number]) [address] [place] [address] 09128Vwpwpgj [Mass/Vol]10.1 mg/dLNormal8.5-10.5PDayton Osteopathic HospitalComment on above:Performed By: #### SYED RAPHAEL, 1988-02, , 80852-2, 5643-2, 2157-03 #### [facility] ([id number]) [address] [place] [address] 01979Kgrkxpal [Moles/Vol]86 mmol/RJmf49-400VrnYnhazrBig Bend Regional Medical CenterComment on above:Performed By: #### SYED RAPHAEL, 1988-02, , 35044-0, 2, 2157-03 #### [facility] ([id number]) [address] [place] [address] 09790XW4 [Moles/Vol]30 mmol/JClczss61-27SmaMezbbkDayton Osteopathic Hospital Comment on above:Performed By: #### SYED RAPHAEL, 1988-02, , 57313-7, 56-2, 2157-03 #### [facility] ([id number]) [address] [place] [address] 81915Gffkfkphex [Mass/Vol]2.38 mg/dLHigh0.40-1.00Pro[facility] HospitalComment on above:Result Comment: METHOD TRACEABLE TO IDMS STANDARD Performed By: #### SYED RAPHAEL, 1988-02, , 88700-8, 5643-2, 2157-03 #### [facility] ([id number]) [address] [place] [address] 17976DLN/1.73 sq M.predicted among non-blacks MDRD (S/P/Bld) [Vol rate/Area]29 mL/min/{1.73_m2}Low>=60ProBig Bend Regional Medical CenterComment on above: Result Comment: Reported eGFR is based on the CKD-EPI 2020 equation that does not use a race coefficient.Performed By: #### SYED RAPHAEL, 1988-02, , 14143- 0, 5642-11, 2157-03 #### [facility] ([id number]) [address] [place] [address] 97417Xhsmnyp [Mass/Vol]110 mg/hLWioq82-06XteRqavasProMedica Defiance Regional Hospital Comment on above:Performed By: #### SYED RAPHAEL, 1988-02, , 48998-9, 5642-11, 2157-03 #### [facility] ([id number]) [address] [place] [address] 13604Xfwospaye [Moles/Vol]2.8 mmol/LLow3.5-5.0ProBig Bend Regional Medical CenterComment on above:Performed By: #### SYED RAPHAEL, 1988-02, , 84048-4, 5642-11, 2157-03 #### [facility] ([id number]) [address] [place] [address] 36455Slxbllx [Mass/Vol]9.9 g/dLHigh6.0-8.0[facility] Comment on above:Performed By: #### SYED RAPHAEL, 1988-02, , 82512-0, 5642-11, 2157-03 #### [facility] ([id number]) [address] [place] [address] 55506Czbxlo [Moles/Vol]134 mmol/FJopisg970-793RlxNbmwwx [facility] HospitalComment on above:Performed By: #### SYED RAPHAEL, 1988-02, , 45571-4, 5642-11, 2157-03 #### [facility] ([id number]) [address] [place] [address] 77835Lbei nitrogen [Mass/Vol]26 mg/dLHigh5-23ProBig Bend Regional Medical CenterComment on above:Performed By: #### IJEOMA CMP, 1988-02, , 43569-2, 5643-2, 2157-03 #### [facility] ([id number]) [address] [place] [address] 06173UFTQGUDZQig 79-92-7412Mztarsqdz [Mass/Vol]2.5 mg/dLNormal 1.8-2.6ProBig Bend Regional Medical CenterComment on above:Performed By: #### CBCA, CMP, 1988-02, , 03692-2, 5643-2, 2157-03 #### [facility] ([id number]) [address] [place] [address] 16245GPDQWLBTU, SERUMon 25-19-3574OUPBF JMVGRTNTN65.3 ng/mLHigh 14.3-65.8ProBig Bend Regional Medical CenterComment on above:Performed By: #### CBCA, CMP, 1988-02, , 74248-4, 5643-2, 2157-03 #### [facility] ([id number]) [address] [place] [address] 19080ZPB WITH AUTO DIFFERENTIALon 40-09-1279DEWOWVRCL ABSOLUTE COUNT (10*3/UL) BY AUTOMATED COUNT0.1 10*3/uLNormal0.0-0.2PDayton Osteopathic Hospital Comment on above:Performed By: #### CBCA, CMP, 1988-02, , 71023-0, 5643-2, 2157-03 #### [facility] ([id number]) [address] [place] [address] 18254RUIVOCJTZ RELATIVE PERCENT BY AUTOMATED COUNT0.5 %Normal ProMHenry Mayo Newhall Memorial HospitalComment on above:Performed By: #### CBCA, CMP, 1988-02, , 10400-5, 5643-2, 2157-03 #### [facility] ([id number]) [address], [place] [address]NBEQCDMABNZ DIFFERENTIAL TYPEAUTOMATED DIFFERENTIALNormal [facility] HospitalComment on above:Performed By: #### SYED RAPHAEL, 1988-02, , 45947-6, 5643-2, 2157-03 #### [facility] ([id number]) [address] [place] [address] 28431Idygmzodakt (Bld) [#/Vol]0.1 10*3/uLNormal0.0-0.4Pro[facility] HospitalComment on above:Performed By: #### SYED RAPHAEL, 1988-02, , 93658-6, 56-2, 2157-03 #### [facility] ([id number]) [address] [place] [address] 78512JFIXBSHGCSM RELATIVE PERCENT BY AUTOMATED COUNT0.7 %Normal [facility] HospitalComment on above:Performed By: #### SYED RAPHAEL, 1988-02, , 97848-2, 5642-2, 2157-03 #### [facility] ([id number]) [address] [place] [address] 21907Gjbjmdkajki distribution width (RBC) [Ratio]13.0 %Lmiwty82.5-15 [facility] HospitalComment on above:Performed By: #### SYED RAPHAEL, 1988-02, , 75982-2, 5643-2, 2157-03 #### [facility] ([id number]) [address] [place] [address] 95526Zacfodyrsm (Bld) [Volume fraction]37.0 %Dumqrx19-21QepZumzaeBig Bend Regional Medical CenterComment on above:Performed By: #### SYED RAPHAEL, 1988-02, , 50105-0, 5643-2, 2157-03 #### [facility] ([id number]) [address] [place] [address] 06788Oidcubevna (Bld) [Mass/Vol]12.6 g/bPFniogh94.7-15.5PDayton Osteopathic HospitalComment on above:Performed By: #### CBCA, CMP, 1988-02, 06850-6, 39558-4, 5643-2, 2157-03 #### [facility] ([id number]) [address] [place] [address] 03224UJLUZXZQIZT ABSOLUTE COUNT (10*3/UL) BY AUTOMATED COUNT1.4 10*3/uLNormal1.0-3.5PDayton Osteopathic HospitalComment on above:Performed By: #### CBCA, CMP, 1988-02, , 93471-5, 5643-2, 2157-03 #### [facility] ([id number]) [address] [place] [address] 42668LKWLEUMAKAM RELATIVE PERCENT BY AUTOMATED COUNT11.3 %Normal [facility] HospitalComment on above:Performed By: #### CBCA, CMP, 1988-02, , 24002-1, 5642-2, 2157-03 #### [facility] ([id number]) [address] [place] [address] 39987VFS (RBC) [Entitic mass]29.0 amSkmvnq18-12BlnVdekqyBig Bend Regional Medical CenterComment on above:Performed By: #### CBCA, CMP, 1988-02, , 90112-7, 5643-2, 2157-03 #### [facility] ([id number]) [address] [place] [address] 06368BABN (RBC) [Mass/Vol]34.1 g/fATtdimt99-65TxrAjwoggBig Bend Regional Medical CenterComment on above:Performed By: #### CBCA, CMP, 1988-02, , 74641-3, 5643-2, 2157-03 #### [facility] ([id number]) [address] [place] [address] 71526XFC (RBC) [Entitic vol]85 vPEecpji20-444XthSceuov [place] HospitalComment on above:Performed By: #### CBCA, CMP, 1988-02, 52957-4, 15497-2, 5643-2, 2157-03 #### [facility] ([id number]) [address] [place] [address] 73097TUBYDHWTG ABSOLUTE COUNT (10*3/UL) BY AUTOMATED COUNT0.7 10*3/uLNormal0.0-0.9ProBig Bend Regional Medical CenterComment on above:Performed By: #### CBCA, CMP, 1988-02, , 90773-1, 5643-2, 2157-03 #### [facility] ([id number]) [address] [place] [address] 29306HZDPPBPSR RELATIVE PERCENT BY AUTOMATED COUNT5.5 %Normal [facility] HospitalComment on above:Performed By: #### CBCA, CMP, 1988-02, , 34038-1, 43-2, 2157-03 #### [facility] ([id number]) [address] [place] [address] 02595AFHIDFBXSRA ABSOLUTE COUNT BY AUTOMATED COUNT10.4 10*3/uLHigh 1.5-6.6ProBig Bend Regional Medical CenterComment on above:Performed By: #### CBCA, CMP, 1988-02, , 85852-4, 5643-2, 2157-03 #### [facility] ([id number]) [address] [place] [address] 23658ALOKJSKALAB RELATIVE PERCENT BY AUTOMATED COUNT82.0 %Normal [facility] HospitalComment on above:Performed By: #### CBCA, CMP, 1988-02, , 99705-7, 5643-2, 2157-03 #### [facility] ([id number]) [address] [place] [address] 37649Vkaelpbr mean volume (Bld) [Entitic vol]7.8 fLNormal7-12 [facility] HospitalComment on above:Performed By: #### SYED RAPHAEL, 1988-02, , 60215-3, 5642-2, 2157-03 #### [facility] ([id number]) [address] [place] [address] 44353Bdtskqaru (Bld) [#/Vol]373 10*3/mGVajnwr227-304VzqNupyjxProMedica Defiance Regional HospitalComment on above:Performed By: #### SYED RAPHAEL, 1988-02, , 07563-5, 5642-2, 2157-03 #### [facility] ([id number]) [address] [place] [address] 05098HZW COUNT4.35 X10E12/LNormal3.8-5.2PDayton Osteopathic Hospital Comment on above:Performed By: #### SYED RAPHAEL, 1988-02, , 09737-7, 5642-2, 2157-03 #### [facility] ([id number]) [address] [place] [address] 24040CTM (Bld) [#/Vol]12.7 10*3/uLHigh4-11[facility] Comment on above:Performed By: #### IJEOMA, SYED, 1988-02, , 04407-2, 43-2, 2157-03 #### [facility] ([id number]) [address] [place] [address] 21940FTVUSOKYDXMAY METABOLIC PANELon 42-81-6949Bsbqoae [Mass/Vol]4.4 g/dLNormal3.2-5.3PDayton Osteopathic HospitalComment on above:Performed By: #### SYED RAPHAEL, 1988-02, , 49302-4, 5643-2, 2157-03 #### [facility] ([id number]) [address] [place] [address] 29535NAH [Catalytic activity/Vol]71 U/EJwrjfe21-359KprResitoBig Bend Regional Medical CenterComment on above:Performed By: #### SYED RAPHAEL, 1988-02, , 96823-4, 43-2, 2157-03 #### [facility] ([id number]) [address] [place] [address] 68619RKC [Catalytic activity/Vol]24 U/LNormal<=31ProMedMiller Children's HospitalComment on above:Performed By: #### SYED RAPHAEL, 1988-02, , 30989-7, 5642-11, 2157-03 #### [facility] ([id number]) [address] [place] [address] 60177Fmjlr gap [Moles/Vol]9 mmol/LNormal5-15ProBig Bend Regional Medical CenterComment on above:Performed By: #### SYED RAPHAEL, 1988-02, , 70612-2, 5642-, 2157-03 #### [facility] ([id number]) [address] [place] [address] 12065YAL [Catalytic activity/Vol]20 U/LNormal<=41ProBig Bend Regional Medical CenterComment on above:Performed By: #### SYED RAPHAEL, 1988-02, , 29048-7, 5642-2, 2157-03 #### [facility] ([id number]) [address] [place] [address] 85249Jxnvklrug [Mass/Vol]0.6 mg/dLNormal0.3-1.2PDayton Osteopathic HospitalComment on above:Performed By: #### SYED RAPHAEL, 1988-02, , 53449-7, 43-2, 2157-03 #### [facility] ([id number]) [address] [place] [address] 87038Foxioep [Mass/Vol]9.2 mg/dLNormal8.5-10.5PDayton Osteopathic HospitalComment on above:Performed By: #### IJEOMA [facility], 1988-02, , 26305-4, 2, 2157-03 #### [facility] ([id number]) [address] [place] [address] 40862Pqzdvpvq [Moles/Vol]103 mmol/QQnreip62-327PmtHmjmxjBig Bend Regional Medical CenterComment on above:Performed By: #### SYED RAPHAEL, 1988-02, , 23878-2, 5642-11, 2157-03 #### [facility] ([id number]) [address] [place] [address] 82970FI0 [Moles/Vol]25 mmol/TMwplwm90-75XnxLolvskDayton Osteopathic Hospital Comment on above:Performed By: #### SYED RAPHAEL, 1988-02, , 99712-9, 5642-11, 2157-03 #### [facility] ([id number]) [address] [place] [address] 27147Nepvbbutcl [Mass/Vol]0.90 mg/dLNormal0.40-1.00ProBig Bend Regional Medical CenterComment on above:Result Comment: METHOD TRACEABLE TO IDMS STANDARD Performed By: #### SYED RAPHAEL, 1988-02, , 13964-5, 5642-11, 2157-03 #### [facility] ([id number]) [address] [place] [address] 85422SWCM (CKD-EPI) NON-RACE DEPENDENT>^90Normal>=60ProBig Bend Regional Medical CenterComment on above:Result Comment: eGFR not reported due to non- numeric value for Creatinine. Reported eGFR is based on the CKD-EPI 2020 equation that does not use a race coefficient.Performed By: #### SYED RAPHAEL, 1988-02, , 48664- 0, 5642-2, 2157-03 #### [facility] ([id number]) [address] [place] [address] 91798Dqrcupv [Mass/Vol]97 mg/jPVfhqkj75-77KhfEgoqkfProMedica [facility] Comment on above:Performed By: #### SYED RAPHAEL, 1988-02, , 34415-3, 5642-11, 2157-03 #### [facility] ([id number]) [address] [place] [address] 08571Veugbvqdi [Moles/Vol]4.0 mmol/LNormal3.5-5.0ProBig Bend Regional Medical CenterComment on above:Performed By: #### SYED RAPHAEL, 1988-02, , 67733-5, 5642-11, 2157-03 #### [facility] ([id number]) [address] [place] [address] 11154Gawfpvw [Mass/Vol]8.1 g/dLHigh6.0-8.0[facility] Comment on above:Performed By: #### SYED RAPHAEL, 1988-02, , 04290-8, 5642-11, 2157-03 #### [facility] ([id number]) [address] [place] [address] 17848Zljgop [Moles/Vol]137 mmol/CVhjwhf079-162ApvDxbcti Fremont HospitalComment on above:Performed By: #### SYED RAPHAEL, 1988-02, , 30725-8, 5642-2, 2157-03 #### [facility] ([id number]) [address] [place], [place] [address]Rnqq nitrogen [Mass/Vol]12 mg/dLNormal5-[facility] HospitalComment on above:Performed By: #### SYED RAPHAEL, 1988-02, , 73817-6, 5643-2, 2157-03 #### [facility] ([id number]) [address] [place] [address] 64289YRHELPdc 24-68-9627Oabrlr [Catalytic activity/Vol]27 U/LNormal 17-40Pro[facility]iance Regional HospitalComment on above:Performed By: #### SYED RAPHAEL, 1988-02, , 18052-2, 5643-2, 2157-03 #### [facility] ([id number]) [address] [place] [address] 31732NRTM NURSING URINE MACROSCOPIC UAon 16-47-9961CUFEUFOJH KRISTA NegativeNormsdNegUpper Valley Medical CenterComment on above:Performed By: #### SYED RAPHAEL, 1988-02, , 45143-5, 5643-2, 2157-03 #### [facility] ([id number]) [address] [place] [address] 24846VDGHE/HGB NURNegativeNorth Las VegasNegUpper Valley Medical Center Comment on above:Performed By: #### SYED RAPHAEL, 1988-02, , 39970-0, 5643-2, 2157-03 #### [facility] ([id number]) [address] [place] [address] 44968EZTLXGZ NURNegativeNoalNegUpper Valley Medical Center Comment on above:Performed By: #### SYED RAPHAEL, 1988-02, , 14613-6, 5643-2, 2157-03 #### [facility] ([id number]) [address] [place] [address] 76924CPKIHDA NURNegativeNormalNegativeBarnesville Hospitalmont Hospital Comment on above:Performed By: #### IJEOMA, SYED, 1988-02, , 78017-4, 5643-2, 2157-03 #### [facility] ([id number]) [address] [place] [address] [place] [address]XAFGMYKOK ESTERASE NURNegativeNormalNegUpper Valley Medical CenterComment on above:Performed By: #### IJEOMA, SYED, 1988-02, , 99389-6, 43-2, 2157-03 #### [facility] ([id number]) [address] [place] [address] 64181MBBPBTZ NURNegativeNormalNegUpper Valley Medical Center Comment on above:Performed By: #### SYED RAPHAEL, 1988-02, , 61090-5, 5642-2, 2157-03 #### [facility] ([id number]) [address] [place] [address] 58211YS NUR7.7Stvdkb8.0, 6.0, 6.5, 7.0, 7.5, 8.0, 8.5, 5.5Pro[facility] Bellwood General HospitalComment on above:Performed By: #### IJEOMA, SYED, 1988-02, , 27528-4, 43-2, 2157-03 #### [facility] ([id number]) [address] [place] [address] [place] [address]KHRCWQA NURTraceAbnormalNationwide Children's Hospital Comment on above:Performed By: #### IJEOMA, SYED, 1988-02, , 23932-8, 5643-2, 2157-03 #### [facility] ([id number]) [address] [place] [address] [place] [address]WTUZKKDA GRAVITY NUR1.623Rgcjwu9.010, 1.015, 1.020, 1.025 [facility] HospitalComment on above:Performed By: #### SYED RAPHAEL, 1988-02, , 96008-5, 5643-2, 2157-03 #### [facility] ([id number]) [address] [place] [address] 18787KSGNVZSOATMN NUR0.2 E.U./dLNormalProBig Bend Regional Medical [facility] Comment on above:Performed By: #### SYED RAPHAEL, 1988-02, , 41112-2, 5643-2, 2157-03 #### [facility] ([id number]) [address] [place] [address] 97774FLVL , URINE (NUCG)on 89-99-3285Gztc HCG ( test) Ql (U)NegativeNormalNegativeProMedica Defiance Regional HospitalComment on above: Performed By: #### SYED RAPHAEL, 1988-02, , 05683-7, 56-2, 2157-03 #### [facility] ([id number]) [address] [place] [address] 20847FZLJO METABOLIC PANLon 16-92-5553Pwzbi gap [Moles/Vol]11 mmol/L Normal5-15[facility]iance Regional HospitalComment on above:Performed By: #### SYED RAPHAEL, 1988-02, , 06834-9, 56-2, 2157-03 #### [facility] ([id number]) [address] [place] [address] 39249Gvcdrco [Mass/Vol]9.6 mg/dLNormal8.5-10.5[facility] HospitalComment on above:Performed By: #### SYED RAPHAEL, 1988-02, , 93711-8, 5643-2, 2157-03 #### [facility] ([id number]) [address] [place] [address] 63954Kbprvuwl [Moles/Vol]99 mmol/QMqgwuw69-780NiyNyftkdProMedica Defiance Regional HospitalComment on above:Performed By: #### SYED RAPHAEL, 1988-02, , 08946-4, 5642-2, 2157-03 #### [facility] ([id number]) [address] [place] [address] 46235WE7 [Moles/Vol]30 mmol/MYmbihn38-91EplPtkcsmDayton Osteopathic Hospital Comment on above:Performed By: #### SYED RAPHAEL, 1988-02, , 14160-5, 2, 2157-03 #### [facility] ([id number]) [address] [place] [address] 57467Uaweqnubxb [Mass/Vol]1.21 mg/dLHigh0.40-1.00Pro[facility] Defiance Regional HospitalComment on above:Result Comment: METHOD TRACEABLE TO IDMS STANDARD Performed By: #### SYED RAPHAEL, 1988-02, , 16705-7, 5642-11, 2157-03 #### [facility] ([id number]) [address] [place] [address] 54375VJE/1.73 sq M.predicted among non-blacks MDRD (S/P/Bld) [Vol rate/Area]64 mL/min/{1.73_m2}Normal>59Pro[facility]iance Regional HospitalComment on above:Result Comment: Reported eGFR is based on the CKD-EPI 2020 equation that does not use a race coefficient.Performed By: #### SYED RAPHAEL, 1988-02, , 44660- 0, 5642-2, 2157-03 #### [facility] ([id number]) [address] [place] [address] 92938Dztmnvz [Mass/Vol]81 mg/mRTmlbvx10-26DzhShrrnaProMedica Defiance Regional Hospital Comment on above:Performed By: #### SYED RAPHAEL, 1988-02, 21384-9, 74128-1, 5643-2, 2157-03 #### [facility] ([id number]) [address] [place] [address] 57200Eoqsxgavc [Moles/Vol]4.4 mmol/LNormal3.5-5.0Pro[facility]iance Regional HospitalComment on above:Performed By: #### SYED RAPHAEL, 1988-02, , 08959-9, 5642-2, 2157-03 #### [facility] ([id number]) [address] [place] [address] 31874Nyvmra [Moles/Vol]140 mmol/BNcjoxn684-413MjlKdboifProMedica Defiance Regional HospitalComment on above:Performed By: #### SYED RAPHAEL, 1988-02, , 67872-2, 5642-11, 2157-03 #### [facility] ([id number]) [address] [place] [address] 32237Qzif nitrogen [Mass/Vol]18 mg/dLNormal5-23Pro[facility] Regional HospitalComment on above:Performed By: #### SYED RAPHAEL, 1988-02, , 59377-4, 5642-11, 2157-03 #### [facility] ([id number]) [address] [place] [address] 60868KU [Catalytic activity/Vol]on 58-55-0360MXC248 U/SDzke39-186 [facility] Regional HospitalComment on above:Performed By: #### SYED RAPHAEL, 1988-02, , 29223-3, 5642-2, 2157-03 #### [facility] ([id number]) [address] [place] [address] 44638RUW AND AUTO DIFFon 16-25-8613Htak form neutrophils/100 WBC (Bld)2.0 %NormalProDiley Ridge Medical Center HospitalComment on above:Performed By: #### SYED RAPHAEL #### [facility] ([id number]) [address], [address] [place], [place] [address]Dmsuyrpqatf (Bld) [#/Vol]0.7 10*3/uLHigh0.0-0.4ProDiley Ridge Medical Center HospitalComment on above:Performed By: #### CBCA, CMP #### [facility] ([id number]) [address], [address] [place], [place] [address]Nhirtruaysw/100 WBC (Bld)6.9 %NormalMcCullough-Hyde Memorial Hospital Hospital Comment on above:Performed By: #### CBCA, CMP #### [facility] ([id number]) [address], [address] [place], [place] [address]Xbsmtllopdz distribution width (RBC) [Ratio]13.6 %Normal 11.5-15.0ProDiley Ridge Medical Center HospitalComment on above:Performed By: #### CBCA, CMP #### [facility] ([id number]) [address], [address] [place], [place] [address]Chnhfxthjo (Bld) [Volume fraction]34.6 %Fmt01-73TdzQfofxu [place] HospitalComment on above:Performed By: #### CBCA, CMP #### [facility] ([id number]) [address], [address] [place], [place] [address]Fqsuxuario (Bld) [Mass/Vol]11.6 g/dLLow11.7-15.5PFostoria City Hospital HospitalComment on above:Performed By: #### CBCA, CMP #### [facility] ([id number]) [address], [address] [place], [place] [address]Rwmaizvgcbu (Bld) [#/Vol]3.3 10*3/uLNormal1.0-3.5PFostoria City Hospital HospitalComment on above:Performed By: #### CBCA, CMP #### [facility] ([id number]) [address], [address] [place], [place] [address]Srwnchsrkzn/100 WBC (Bld)31.7 %NormalLake County Memorial Hospital - Westca [facility] Comment on above:Performed By: #### CBCA, CMP #### [facility] ([id number]) [address], [address] [place], [place] [address]VDL (RBC) [Entitic mass]30.3 arPvklxn33-10MrtNawuqm Hassan HospitalComment on above:Performed By: #### CBCA, CMP #### [facility] ([id number]) [address], [address] [place], [place] [address]HERY (RBC) [Mass/Vol]33.6 g/dBDwolnu49-45IpnEewobj Hassan HospitalComment on above:Performed By: #### CBCA, CMP #### [facility] ([id number]) [address], [address] [place], [place] [address]YTH (RBC) [Entitic vol]90 hNLvbyqy23-969NapWgglpy Saltese HospitalComment on above:Performed By: #### CBCA, CMP #### [facility] ([id number]) [address], [address] [place], [place] [address]Egzfryyjs (Bld) [#/Vol]1.3 10*3/uLHigh0-0.9ProMedica Saltese HospitalComment on above:Performed By: #### CBCA, CMP #### [facility] ([id number]) [address], [address] [place], [place] [address]Mjchbixmg/100 WBC (Bld)12.9 %NormalLake County Memorial Hospital - Westca [facility] Comment on above:Performed By: #### CBCA, CMP #### [facility] ([id number]) [address], [address] [place], [place] [address]OWMLRUDEC3.0 %NormalProSelect Medical [facility] Hospital - Dublinca Saltese HospitalComment on above: Performed By: #### CBCA, CMP #### [facility] ([id number]) [address], [address] [place], [place] [address]Yhflznltbal (Bld) [#/Vol]4.9 10*3/uLNormal1.5-6.6ProMedica Hassan HospitalComment on above:Performed By: #### CBCA, CMP #### [facility] ([id number]) [address], [address] [place], [place] [address]Dzhtznbb mean volume (Bld) [Entitic vol]8.1 fLNormal7-12 [facility] HospitalComment on above:Performed By: #### CBCA, CMP #### [facility] ([id number]) [address], [address] [place], [place] [address]Avizfxqzr (Bld) [#/Vol]222 10*3/tNDantsj889-187UrgPwsnoc Hassan HospitalComment on above:Performed By: #### CBCA, CMP #### [facility] ([id number]) [address], [address] [place], [place] [address]VDS COUNT3.84 X10E12/LNormal3.80-5.20ProDiley Ridge Medical Center Hospital Comment on above:Performed By: #### CBCA, CMP #### [facility] ([id number]) [address], [address] [place], [place] [address]VFW morphology finding Nom (Bld)NORMALNormalProMedica Saltese HospitalComment on above:Performed By: #### CBCA, CMP #### [facility] ([id number]) [address], [address] [place], [place] [address]CMP BLJXYEYZQB18.5 %NormalProMedica Hassan HospitalComment on above:Performed By: #### CBCA, CMP #### [facility] ([id number]) [address], [address] [place], [place] [address]NJA (Bld) [#/Vol]10.3 10*3/uLNormal4.0-11.0German HospitalComment on above:Performed By: #### CBCA, CMP #### [facility] ([id number]) [address] [place], [place] [address]IPI auto differentialon 85-44-7371Ukkb form neutrophils/100 WBC (Bld)2 %[facility] HospitalEosinophils (Bld) [#/Vol]0.7 10*3/uLWarren Memorial HospitalEosinophils/100 WBC (Bld)6.9 %[facility] HospitalErythrocyte distribution width (RBC) [Ratio]13.6 %11.5 - 15.0 %[facility] Hematocrit (Bld) [Volume fraction]34.6 %Low35 - 47 %[facility] Hemoglobin (Bld) [Mass/Vol]11.6 g/dLLow11.7 - 15.5 g/dLOhioHealth Dublin Methodist Hospital Interpretation and review of laboratory resultsAbnoSampson Regional Medical Center Lymphocytes (Bld) [#/Vol]3.3 10*3/[facility] HospitalLymphocytes/100 WBC (Bld)31.7 %[facility] HospitalMCH (RBC) [Entitic mass]30.3 pg27 - 34 pg [facility] HospitalMCHC (RBC) [Mass/Vol]33.6 g/dL32 - 36 g/dLOhioHealth Dublin Methodist HospitalMCV (RBC) [Entitic vol]90 fL80 - 100 [facility] Monocytes (Bld) [#/Vol]1.3 10*3/uLWarren Memorial HospitalMonocytes/100 WBC (Bld)12.9 %[facility] HospitalMyelocytes/100 WBC (Bld)1 %[facility] HospitalNeutrophils (Bld) [#/Vol]4.9 10*3/uLOhioHealth Dublin Methodist HospitalPlatelet mean volume (Bld) [Entitic vol]8.1 fL7 - 12 [facility] HospitalPlatelets (Bld) [#/Vol]222 10*3/uLProMedica Health SystemPolymorphonuclear cells/100 WBC (Bld) NORMALProAultman Hospital SystemRBC (Bld) [#/Vol]3.84 10*6/uLProCorey Hospitalegmented neutrophils/100 WBC (Bld)45.5 %ProMSCCI Hospital LimaWBC corrected for nucl RBC Auto (Bld) [#/Vol]10.3PUniversity Hospitals Elyria Medical CenterProBrown Memorial Hospital Totalon 25-26-6888LW [Catalytic activity/Vol]2824 U/LHigh24 - 170 U/LProMedFirelands Regional Medical Center [facility] Campus [Catalytic activity/Vol]on 54-64-2668PFC9059 U/QFijy90-943AbkOaoose [place] HospitalComment on above:Performed By: #### CBCA, CMP #### [facility] ([id number]) [address], [address] [place], [place] [address]WQDSRELEHYVUJ METABOLIC PANELon 81-43-7139Mixombc [Mass/Vol]3.3 g/dLNormal3.2-5.3PWVUMedicine Harrison Community HospitalComment on above:Performed By: #### CBCA, CMP #### [facility] ([id number]) [address], [address] [place], [place] [address]NNY [Catalytic activity/Vol]94 U/DMxocbz66-200TcnZakznp [place] HospitalComment on above:Performed By: #### CBCA, CMP #### [facility] ([id number]) [address], [address] [place], [place] [address]GIY [Catalytic activity/Vol]274 U/LHigh0-31PWVUMedicine Harrison Community HospitalComment on above:Performed By: #### CBCA, CMP #### [facility] ([id number]) [address], [address] [place], [place] [address]Sqkrw gap [Moles/Vol]6 mmol/LNormal5-15[facility] Hospital Comment on above:Performed By: #### CBCA, CMP #### [facility] ([id number]) [address], [address] [place], [place] [address]EQD [Catalytic activity/Vol]107 U/LHigh0-41ProMedica Hassan HospitalComment on above:Performed By: #### IJEOMA, CMP #### [facility] ([id number]) [address], [address] [place], [place] [address]Ljqogekqo [Mass/Vol]0.5 mg/dLNormal0.3-1.2ProMedParkwood Hospital HospitalComment on above:Performed By: #### IJEOMA, CMP #### [facility] ([id number]) [address], [address] [place], [place] [address]Uvpvdqj [Mass/Vol]8.6 mg/dLNormal8.5-10.5ProMedParkwood Hospital HospitalComment on above:Performed By: #### IJEOMA, CMP #### [facility] ([id number]) [address], [address] [place], [place] [address]Tlrcnwth [Moles/Vol]105 mmol/JZwziue80-459BojZaotra [place] HospitalComment on above:Performed By: #### IJEOMA, CMP #### [facility] ([id number]) [address], [address] [place], [place] [address]YT1 [Moles/Vol]30 mmol/HBbbauv59-84IgrQtenrq [facility] Comment on above:Performed By: #### IJEOMA, CMP #### [facility] ([id number]) [address], [address] [place], [place] [address]Jiczwmmlzm [Mass/Vol]1.39 mg/dLHigh0.40-1.00ProSelect Medical [facility] Rehabilitation Hospital - Dublinca Hassan HospitalComment on above:Result Comment: METHOD TRACEABLE TO IDMS STANDARD Performed By: #### IJEOMA, CMP #### [facility] ([id number]) [address], [address] [place], [place] [address]HQT/1.73 sq M.predicted among non-blacks MDRD (S/P/Bld) [Vol rate/Area]54 mL/min/{1.73_m2}Low>59ProPremier HealthComment on above: Result Comment: Reported eGFR is based on the CKD-EPI 2020 equation that does not use a race coefficient.Performed By: #### IJEOMA, CMP #### [facility] ([id number]) [address], [address] [place], [place] [address]Jcvllqb [Mass/Vol]90 mg/aLUnqifk20-93UoaPexfevGerman Hospital Comment on above:Performed By: #### IJEOMA, CMP #### [facility] ([id number]) [address], [address] [place], [place] [address]Yyurdmzkq [Moles/Vol]4.4 mmol/LNormal3.5-5.0ProPremier HealthComment on above:Performed By: #### IJEOMA, CMP #### [facility] ([id number]) [address], [address] [place], [place] [address]Kdhzunw [Mass/Vol]5.7 g/dLLow6.0-8.0[facility] Comment on above:Performed By: #### IJEOMA, CMP #### [facility] ([id number]) [address], [address] [place], [place] [address]Rvjtls [Moles/Vol]141 mmol/TLkcnpx872-695KymVqrrkv [place] HospitalComment on above:Performed By: #### CBCA, CMP #### [facility] ([id number]) [address], [address] [place], [place] [address]Ytec nitrogen [Mass/Vol]14 mg/dLNormal5-23ProPremier HealthComment on above:Performed By: #### CBCA, CMP #### [facility] ([id number]) [address], [address] [place], [place] [address]Uzmuywjvmnulr metabolic panelon 33-71-2096Yybxfow [Mass/Vol]3.3 g/dL3.2 - 5.3 g/dLProRegional Medical Center Of Jacksonville Health SystemALP [Catalytic activity/Vol]94 U/L39 - 130 U/LProMedica Health SystemALT No additional P-5'-P [Catalytic activity/Vol] 274 U/LHigh0 - 31 U/LProMedica Health SystemAnion gap [Moles/Vol]6 mmol/L5 - 15 mmol/LProMedica Health SystemAST [Catalytic activity/Vol]107 U/LHigh0 - 41 U/L [facility] SystemBilirubin [Mass/Vol]0.5 mg/dL0.3 - 1.2 mg/dLProAultman Hospital SystemCalcium [Mass/Vol]8.6 mg/dL8.5 - 10.5 mg/dLProAultman Hospital System Chloride [Moles/Vol]105 mmol/L98 - 109 mmol/[facility] SystemCO2 [Moles/Vol]30 mmol/L22 - 32 mmol/[facility] SystemCreatinine [Mass/Vol] 1.39 mg/dLHigh0.40 - 1.00 mg/dLDetwiler Memorial Hospital SystemeGFR (CKD-EPI)non-race vkkjvwdfk54Dox- PINFPCleveland Clinic Union Hospital SystemGlucose [Mass/Vol]90 mg/dL65 - 99 mg/dLDetwiler Memorial Hospital SystemPotassium [Moles/Vol]4.4 mmol/L3.5 - 5.0 mmol/L [facility] SystemProtein [Mass/Vol]5.7 g/dLLow6.0 - 8.0 g/dLDetwiler Memorial Hospital SystemSodium [Moles/Vol]141 mmol/L134 - 146 mmol/[facility] System Urea nitrogen [Mass/Vol]14 mg/dL5 - 23 mg/dLDetwiler Memorial Hospital SystemMAGNESIUMon 79-52-5809Ikykeakvt [Mass/Vol]1.5 mg/dLLow1.8-2.6[facility] Comment on above:Performed By: #### CBCA, CMP #### [facility] ([id number]) [address] [place], [place] [address]Ybeikurztpt 01-23-0502Tcfqyaysg [Mass/Vol]1.5 mg/dLLow1.8 - 2.6 mg/dLOhioHealth Dublin Methodist HospitalMyoglobin [Mass/Vol]on 37-21-0985YAOLO MYOGLOBIN 353.4 ng/oNXnzr08.3-65.8ProPremier HealthComment on above:Performed By: #### CBCA, CMP #### [facility] ([id number]) [address], [address] [place], [place] [address]Ydqrdjgqa, serumon 45-37-0623Mdvxbfyvl [Mass/Vol]353.4 ng/mLHigh 14.3 - 65.8 ng/mLOhioHealth Dublin Methodist HospitalNo Panel Informationon 11-12-2024 Interpretation and review of laboratory resultsAbnormalOhioHealth Dublin Methodist Hospital ProMSCCI Hospital LimaPHOSPHORUSon 73-65-8559Xbtwbxgeb [Mass/Vol]4.4 mg/dL Normal2.4-4.9ProPremier HealthComment on above:Performed By: #### CBCA, CMP #### [facility] ([id number]) [address] [place], [place] [address]Bqkbczptghyl 44-18-2332Hzzhbgeuz [Mass/Vol]4.4 mg/dL2.4 - 4.9 mg/dLOhioHealth Dublin Methodist HospitalCBC AND AUTO DIFFon 37-87-1800PBPWGZAE BASOPHIL0.1 X10E9/LNormal0.0-0.2PWVUMedicine Harrison Community HospitalComment on above:Performed By: #### CBCA, CMP #### [facility] ([id number]) [address] [place], [place] [address]IXVJRPGB NEUTROPHIL6.3 X10E9/LNormal1.5-6.6ProPremier HealthComment on above:Performed By: #### CBCA, CMP #### [facility] ([id number]) [address], [address] [place], [place] [address]Uthugfoax/100 WBC (Bld)0.6 %NormalProDiley Ridge Medical Center Hospital Comment on above:Performed By: #### CBCA, CMP #### [facility] ([id number]) [address], [address] [place], [place] [address]Hhngueuxncu (Bld) [#/Vol]1.0 10*3/uLHigh0.0-0.4ProDiley Ridge Medical Center HospitalComment on above:Performed By: #### CBCA, CMP #### [facility] ([id number]) [address], [address] [place], [place] [address]Axqnaoirqsv/100 WBC (Bld)10.1 %NormalProDiley Ridge Medical Center Hospital Comment on above:Performed By: #### CBCA, CMP #### [facility] ([id number]) [address], [address] [place], [place] [address]Pmqwbfknvpn distribution width (RBC) [Ratio]13.7 %Normal 11.5-15.0ProDiley Ridge Medical Center HospitalComment on above:Performed By: #### CBCA, CMP #### [facility] ([id number]) [address], [address] [place], [place] [address]Tqbztqgcmj (Bld) [Volume fraction]34.3 %Xzv35-52IhjHviwad [place] HospitalComment on above:Performed By: #### CBCA, CMP #### [facility] ([id number]) [address], [address] [place], [place] [address]Wqrbjvmssf (Bld) [Mass/Vol]11.6 g/dLLow11.7-15.5PFostoria City Hospital HospitalComment on above:Performed By: #### CBCA, CMP #### [facility] ([id number]) [address], [address] [place], [place] [address]Uxefaobslnu (Bld) [#/Vol]1.7 10*3/uLNormal1.0-3.5PFostoria City Hospital HospitalComment on above:Performed By: #### CBCA, CMP #### [facility] ([id number]) [address], [address] [place], [place] [address]Lpehwwrfoaa/100 WBC (Bld)17.0 %NormalLake County Memorial Hospital - Westca [facility] Comment on above:Performed By: #### CBCA, CMP #### [facility] ([id number]) [address], [address] [place], [place] [address]OWX (RBC) [Entitic mass]30.5 uxIvolkk23-72QksIpmzgc Hassan HospitalComment on above:Performed By: #### CBCA, CMP #### [facility] ([id number]) [address], [address] [place], [place] [address]JTUY (RBC) [Mass/Vol]34.0 g/rAGeugay27-74UtuQqsaaj Hassan HospitalComment on above:Performed By: #### CBCA, CMP #### [facility] ([id number]) [address], [address] [place], [place] [address]XNH (RBC) [Entitic vol]90 eAZluzoa23-646JrvPprpdv Hassan HospitalComment on above:Performed By: #### CBCA, CMP #### [facility] ([id number]) [address], [address] [place], [place] [address]Jvcwaywbw (Bld) [#/Vol]0.8 10*3/uLNormal0-0.9ProMedica Hassan HospitalComment on above:Performed By: #### CBCA, CMP #### [facility] ([id number]) [address], [address] [place], [place] [address]Kbmhcuzuj/100 WBC (Bld)8.3 %NormalLake County Memorial Hospital - Westca [facility] Comment on above:Performed By: #### CBCA, CMP #### [facility] ([id number]) [address], [address] [place], [place] [address]Ubcemmtokxx/100 WBC (Bld)64.0 %NormalGerman Hospital Comment on above:Performed By: #### CBCA, CMP #### [facility] ([id number]) [address], [address] [place] [address]Bghadgxy mean volume (Bld) [Entitic vol]8.3 fLNormal7-12 German HospitalComment on above:Performed By: #### CBCA, CMP #### [facility] ([id number]) [address], [address] [address]Rkoqlyttp (Bld) [#/Vol]187 10*3/aXAtwowz220-583VvwTjbuqc [place] HospitalComment on above:Performed By: #### CBCA, CMP #### [facility] ([id number]) [address], [address] [address]HKF COUNT3.81 X10E12/LNormal3.80-5.20[facility] Comment on above:Performed By: #### CBCA, CMP #### [facility] ([id number]) [address], [address] [address]OOC (Bld) [#/Vol]9.9 10*3/uLNormal4.0-11.0German HospitalComment on above:Performed By: #### CBCA, CMP #### [facility] ([id number]) [address], [address] [address]HLJ auto differentialon [id number] (Bld) [#/Vol]0.1 10*3/uLProMedica Health SystemBasophils/100 WBC (Bld)0.6 %[facility] HospitaledicGlacial Ridge Hospital SystemEosinophils (Bld) [#/Vol]1 10*3/uLHighProMedica [facility] Eosinophils/100 WBC (Bld)10.1 %[facility] HospitaledicGlacial Ridge Hospital SystemErythrocyte distribution width (RBC) [Ratio]13.7 %11.5 - 15.0 %[facility] SystemHematocrit (Bld) [Volume fraction]34.3 %Low35 - 47 %[facility] HospitalHemoglobin (Bld) [Mass/Vol]11.6 g/dLLow11.7 - 15.5 g/dLOhioHealth Dublin Methodist HospitalInterpretation and review of laboratory resultsAbnormalOhioHealth Dublin Methodist HospitalLymphocytes (Bld) [#/Vol]1.7 10*3/uLOhioHealth Dublin Methodist HospitalLymphocytes/100 WBC (Bld)17 %[facility] HospitalMCH (RBC) [Entitic mass]30.5 pg27 - 34 [facility] MCHC (RBC) [Mass/Vol]34 g/dL32 - 36 g/dLOhioHealth Dublin Methodist HospitalMCV (RBC) [Entitic vol]90 fL80 - 100 [facility] HospitalMonocytes (Bld) [#/Vol]0.8 10*3/[facility] HospitalMonocytes/100 WBC (Bld)8.3 %[facility] HospitalNeutrophils (Bld) [#/Vol]6.3 10*3/uLOhioHealth Dublin Methodist HospitalNeutrophils/100 WBC (Bld)64 %[facility] HospitalPlatelet mean volume (Bld) [Entitic vol]8.3 fL7 - 12 [facility] HospitalPlatelets (Bld) [#/Vol]187 10*3/[facility] HospitalRBC (Bld) [#/Vol]3.81 10*6/[facility] HospitalWBC corrected for nucl RBC Auto (Bld) [#/Vol]9.9[facility] CK Totalon 91-90-6578CT [Catalytic activity/Vol]6889 U/LHigh24 - 170 U/L [facility] HospitalCK [Catalytic activity/Vol]on 63-61-4867WAM6470 U/LHigh 24-170German HospitalComment on above:Performed By: #### CBCA, CMP #### [facility] ([id number]) [address] [place], [place] [address]KMQMQWKBANVZD METABOLIC PANELon 29-83-2395Scoctnl [Mass/Vol]3.3 g/dLNormal3.2-5.3ProMedParkwood Hospital HospitalComment on above:Performed By: #### CBCA, CMP #### [facility] ([id number]) [address], [address] [place], [place] [address]EVW [Catalytic activity/Vol]123 U/BQcqubc92-780LndRkacfu Saltese HospitalComment on above:Performed By: #### CBCA, CMP #### [facility] ([id number]) [address], [address] [place], [place] [address]VWW [Catalytic activity/Vol]398 U/LHigh0-31ProMedParkwood Hospital HospitalComment on above:Performed By: #### CBCA, CMP #### [facility] ([id number]) [address], [address] [place], [place] [address]Teauh gap [Moles/Vol]7 mmol/LNormal5-15ProDiley Ridge [facility] Center Hospital Comment on above:Performed By: #### CBCA, CMP #### [facility] ([id number]) [address], [address] [place], [place] [address]ZPA [Catalytic activity/Vol]179 U/LHigh0-41ProMedica Saltese HospitalComment on above:Performed By: #### CBCA, CMP #### [facility] ([id number]) [address], [address] [place], [place] [address]Vjinoyvbe [Mass/Vol]0.5 mg/dLNormal0.3-1.2ProMedPark[facility] Hospital HospitalComment on above:Performed By: #### CBCA, CMP #### [facility] ([id number]) [address], [address] [place], [place] [address]Izddupt [Mass/Vol]8.6 mg/dLNormal8.5-10.5ProMedParkwood Hospital HospitalComment on above:Performed By: #### CBCA, CMP #### [facility] ([id number]) [address], [address] [place], [place] [address]Zzowmbht [Moles/Vol]104 mmol/XJtjtpr84-229TpqXmkxkf [place] HospitalComment on above:Performed By: #### IJEOMA, CMP #### [facility] ([id number]) [address] [place], [place] [address]MR9 [Moles/Vol]29 mmol/BCacqxq57-52VsvSwiyiiWVUMedicine Harrison Community Hospital Comment on above:Performed By: #### IJEOMA, CMP #### [facility] ([id number]) [address] [place], [place] [address]Ajrmrzilqq [Mass/Vol]1.44 mg/dLHigh0.40-1.00ProPremier HealthComment on above:Result Comment: METHOD TRACEABLE TO IDMS STANDARD Performed By: #### IJEOMA, CMP #### [facility] ([id number]) [address], [address] [place], [place] [address]USF/1.73 sq M.predicted among non-blacks MDRD (S/P/Bld) [Vol rate/Area]52 mL/min/{1.73_m2}Low>59ProPremier HealthComment on above: Result Comment: Reported eGFR is based on the CKD-EPI 2020 equation that does not use a race coefficient.Performed By: #### IJEOMA, CMP #### [facility] ([id number]) [address], [address] [place], [place] [address]Cixadwv [Mass/Vol]95 mg/vXLnqsiv44-63TmvQlnnsmGerman Hospital Comment on above:Performed By: #### IJEOMA, CMP #### [facility] ([id number]) [address] [place], [place] [address]Abgztovzd [Moles/Vol]4.3 mmol/LNormal3.5-5.0ProPremier HealthComment on above:Performed By: #### IJEOMA, CMP #### [facility] ([id number]) [address] [place] [address]Xfoxfqa [Mass/Vol]5.8 g/dLLow6.0-8.0[facility] Comment on above:Performed By: #### IJEOMA, CMP #### [facility] ([id number]) [address] [address]Vkqhgj [Moles/Vol]140 mmol/YXqwwdb873-803ZidIovzqf [place] HospitalComment on above:Performed By: #### IJEOMA, CMP #### [facility] ([id number]) [address] [address]Ieoj nitrogen [Mass/Vol]16 mg/dLNormal5-23ProPremier HealthComment on above:Performed By: #### IJEOMA, CMP #### [facility] ([id number]) [address] [address]Tbfllyk.ionized (Bld) [Mass/Vol]on 09-87-1793YblEgtuik Health SystemIONIZED CALCIUM4.7 mg/dLNormal4.5-5.3PWVUMedicine Harrison Community HospitalComment on above:Performed By: #### IJEOMA, CMP #### [facility] ([id number]) [address] [address]Xgxrsfvuqqzfj metabolic panelon 76-77-3644Rgmpqwt [Mass/Vol]3.3 g/dL3.2 - 5.3 g/dLProMedica Health SystemALP [Catalytic activity/Vol]123 U/L39 - 130 U/LProMedica Health SystemALT No additional P-5'-P [Catalytic activity/Vol] 398 U/LHigh0 - 31 U/LProMedica Health SystemAnion gap [Moles/Vol]7 mmol/L5 - 15 mmol/LProMedica Health SystemAST [Catalytic activity/Vol]179 U/LHigh0 - 41 U/L [facility] Health SystemBilirubin [Mass/Vol]0.5 mg/dL0.3 - 1.2 mg/dLDetwiler Memorial Hospital SystemCalcium [Mass/Vol]8.6 mg/dL8.5 - 10.5 mg/dLDetwiler Memorial Hospital System Chloride [Moles/Vol]104 mmol/L98 - 109 mmol/LProMedhartselle medical center Health SystemCO2 [Moles/Vol]29 mmol/L22 - 32 mmol/LPrProMedica Flower Hospital SystemCreatinine [Mass/Vol] 1.44 mg/dLHigh0.40 - 1.00 mg/dLOhioHealth Dublin Methodist HospitaleGFR (CKD-EPI)non-race yulpkxrsm63Jez- PINFProMedMercy Hospital SystemGlucose [Mass/Vol]95 mg/dL65 - 99 mg/dLOhioHealth Dublin Methodist HospitalPotassium [Moles/Vol]4.3 mmol/L3.5 - 5.0 mmol/L [facility] SystemProtein [Mass/Vol]5.8 g/dLLow6.0 - 8.0 g/dLDetwiler Memorial Hospital SystemSodium [Moles/Vol]140 mmol/L134 - 146 mmol/[facility] Urea nitrogen [Mass/Vol]16 mg/dL5 - 23 mg/dLOhioHealth Dublin Methodist HospitalECG 12 leadon 76-18-0963LYQMDPZKAQHHTNGyrGlvkhr Health SystemHolter monitor studyon 41-25-1769KPHCLIII TRANSCRIBED RESULTSOhioHealth Dublin Methodist HospitalMANUALLY TRANSCRIBED RESULTSOhioHealth Dublin Methodist HospitalIonized calciumon 11-11-2024 Calcium.ionized (Bld) [Mass/Vol]4.7 mg/dL4.5 - 5.3 mg/dLOhioHealth [facility] Hospital MAGNESIUMon 55-86-9236Rldvfcgcz [Mass/Vol]1.5 mg/dLLow1.8-2.6German HospitalComment on above:Performed By: #### CBCA, CMP #### [facility] ([id number]) [address], [address] [place], [place] [address]Nngyflkahmd 03-17-1375Vfzxtbjdn [Mass/Vol]1.5 mg/dLLow1.8 - 2.6 mg/dLOhioHealth Dublin Methodist HospitalMyoglobin [Mass/Vol]on 47-57-7869TLZZX MYOGLOBIN 423.2 ng/fQAtmy86.3-65.8ProPremier HealthComment on above:Performed By: #### CBCA, CMP #### [facility] ([id number]) [address] [place] [address], [address] [place], [place] [address]Vyrdykkhz, serumon 56-66-6028Oxuvhadcp [Mass/Vol]423.2 ng/mLHigh 14.3 - 65.8 ng/mLOhioHealth Dublin Methodist HospitalNo Panel Informationon 11-11-2024 Interpretation and review of laboratory resultsAbnormalAgnesian HealthCare SystemInterpretation and review of laboratory resultsAbnoDepartment of Veterans Affairs Medical Center-EriePHOSPHORUSon 42-31-4010Opetzbmvk [Mass/Vol]4.1 mg/dLNormal2.4-4.9ProPremier HealthComment on above: Performed By: #### CBCA, CMP #### [facility] ([id number]) [address] [place] [address], [address] [place], [place] [address]Lnlczfxzeigx 66-89-4858Fzguyjfbg [Mass/Vol]4.1 mg/dL2.4 - 4.9 mg/dLOhioHealth Dublin Methodist HospitalRESP PATHOGENS/OWWH-HjJ-3cn 38-11-0585Eakygabrfcz pathogens DNA and RNA panel JACKSON+non-probe (Nph)SPECIMEN [...] a patient with possible respiratory tract infection.NormalProMedica Select Medical Trihealth Rehabilitation HospitalComment on above:Performed By: #### CBCA, CMP #### [facility] ([id number]) [address] [place] [address], [address] [place], [place] [address]Alynjuaycsv pathogens DNA and RNA panel JACKSON+non-probe (Nph)on 81-83-5600Aubebqdbkt DNA JACKSON+non-probe Ql (Nph)Not detectedNot Detected^Not DetectedOhioHealth Dublin Methodist HospitalB. parapertussis SD3128 DNA JACKSON+non-probe Ql (Nph)Not detectedNot Detected^Not DetectedOhioHealth Dublin Methodist HospitalB. pertussis toxin promoter region JACKSON+non-probe Ql (Nph)Not detectedNot Detected^Not DetectedOhioHealth Dublin Methodist HospitalC. pneumoniae DNA JACKSON+non-probe Ql (Nph)Not detectedNot Detected^Not DetectedOhioHealth Dublin Methodist HospitalFLUAV H1 2009 pand RNA JACKSON+non-probe Ql (Nph)DetectedAbnormalNot Detected^Not DetectedOhioHealth Dublin Methodist HospitalFLUBV RNA JACKSON+non-probe Ql (Nph)Not detectedNot Detected^Not Detected [facility] HospitalHCoV 229E RNA JACKSON+non-probe Ql (Nph)Not detectedNot Detected^Not DetectedOhioHealth Dublin Methodist HospitalHCoV HKU1 RNA JACKSON+non-probe Ql (Nph) Not detectedNot Detected^Not DetectedOhioHealth Dublin Methodist HospitalHCoV NL63 RNA JACKSON+non-probe Ql (Nph)Not detectedNot Detected^Not DetectedOhioHealth Dublin Methodist HospitalHCoV OC43 RNA JACKSON+non-probe Ql (Nph)Not detectedNot Detected^Not Detected [facility] HospitalhMPV RNA JACKSON+non-probe Ql (Nph)Not detectedNot Detected^Not DetectedOhioHealth Dublin Methodist HospitalInterpretation and review of laboratory resultsAbnormFlower HospitalM. pneumoniae DNA JACKSON+non-probe Ql (Nph)Not detectedNot Detected^Not DetectedOhioHealth Dublin Methodist Hospital Parainfluenza virus 1 RNA JACKSON+non-probe Ql (Nph)Not detectedNot Detected^Not DetectedOhioHealth Dublin Methodist HospitalParainfluenza virus 2 RNA JACKSON+non-probe Ql (Nph) Not detectedNot Detected^Not DetectedOhioHealth Dublin Methodist HospitalParainfluenza virus 3 RNA JACKSON+non-probe Ql (Nph)Not detectedNot Detected^Not DetectedOhioHealth Dublin Methodist HospitalParainfluenza virus 4 RNA JACKSON+non-probe Ql (Nph)Not detectedNot Detected^Not DetectedOhioHealth Dublin Methodist HospitalRhinovirus+Enterovirus RNA JACKSON+non- probe Ql (Nph)Not detectedNot Detected^Not DetectedOhioHealth Dublin Methodist HospitalRSV RNA JACKSON+non-probe Ql (Nph)Not detectedNot Detected^Not DetectedUNC Medical CenterARS-CoV-2 (COVID-19) RNA JACKSON+probe Ql (Resp)Not detectedNot Detected^Not DetectedUNC Medical Centerpecimen source Nom (Body fld)NASO PHARYNX [facility] HospitalXR CHEST 1 VWon 43-37-0897BC CHEST 1 VWXR CHEST 1 VW XR CHEST 1 VW IMPRESSION: Clinical Information: fever/congestion Comparison: 11/04/24. * Negative chest x-ray. Finalized by Rajendra Muro MD on 11/11/2024 4:18 PMNormalGerman HospitalXR Chest Single viewon 02-04-7579KLZMAEMBRLKabNqyaan Health System Radiology Study observation (narrative)[facility] HospitalXR Chest Single viewOrdered By: Rajendra Muro on 74-91-4111RogLmqfvhOhioHealth Dublin Methodist Hospital Work Phone: cbc AND AUTO DIFFon 01-73-5304Qsqvgccplhm (Bld) [#/Vol]1.1 10*3/uLHigh0.0-0.4[facility] Methodist HospitalComment on above:Performed By: #### CBCA, CMP #### [facility] ([id number]) [address], [address] [address]Jqjqcnqefxk distribution width (RBC) [Ratio]13.6 %Normal 11.5-15.0[facility] Methodist HospitalComment on above:Performed By: #### CBCA, CMP #### [facility] ([id number]) [address], [address] [address]Eqjdvphqdj (Bld) [Volume fraction]37.4 %Yuobon30-89PoaOzkzeb Health SystemComment on above:Performed By: #### CBCA, CMP #### [facility] ([id number]) [address], [address] [address]Lktzhpefbw (Bld) [Mass/Vol]12.4 g/yIChvvxs75.7-15.5PCleveland Clinic Union Hospital SystemComment on above:Performed By: #### CBCA, CMP #### [facility] ([id number]) [address], [address] [place], [place] [address]Kutprnqblgn (Bld) [#/Vol]1.1 10*3/uLNormal1.0-3.5PCleveland Clinic Union Hospital SystemComment on above:Performed By: #### CBCA, CMP #### [facility] ([id number]) [address], [address] [place], [place] [address]KQV (RBC) [Entitic mass]29.8 tuVrljfb39-15UbqHjqgan Health SystemComment on above:Performed By: #### CBCA, CMP #### [facility] ([id number]) [address], [address] [place], [place] [address]ZZG (RBC) [Entitic vol]90 bJMnsfzs50-096RjdUqftad Health System Comment on above:Performed By: #### CBCA, CMP #### [facility] ([id number]) [address], [address] [place], [place] [address]Yegiqogle (Bld) [#/Vol]0.7 10*3/uLNormal0-0.9[facility] Hospital SystemComment on above:Performed By: #### CBCA, CMP #### [facility] ([id number]) [address], [address] [place], [place] [address]Ikrbzfrlxbn (Bld) [#/Vol]7.9 10*3/uLHigh1.5-6.6Detwiler Memorial Hospital SystemComment on above:Performed By: #### CBCA, CMP #### [facility] ([id number]) [address], [address] [place], [place] [address]Bvhkmtsj mean volume (Bld) [Entitic vol]8.1 fLNormal7-12 ProMLake City Hospital and Clinic SystemComment on above:Performed By: #### CBCA, CMP #### [facility] ([id number]) [address], [address] [place], [place] [address]Qdhfpxenk (Bld) [#/Vol]195 10*3/jBUrawwh569-999YbjKmutoj Health SystemComment on above:Performed By: #### CBCA, CMP #### [facility] ([id number]) [address], [address] [place], [place] [address]Wcbu form neutrophils/100 WBC (Bld)1.0 %[facility] Community HospitalComment on above:Performed By: #### CBCA, CMP #### [facility] ([id number]) [address], [address] [place], [place] [address]Jaepkayxxtu/100 WBC (Bld)10.0 %[facility] Comment on above:Performed By: #### CBCA, CMP #### [facility] ([id number]) [address], [address] [place], [place] [address]Kgzffpggvln/100 WBC (Bld)10.0 %[facility] Comment on above:Performed By: #### CBCA, CMP #### [facility] ([id number]) [address], [address] [place], [place] [address]ZLWU (RBC) [Mass/Vol]33.0 g/lKLqzrni45-77GckAzayynGerman HospitalComment on above:Performed By: #### CBCA, CMP #### [facility] ([id number]) [address], [address] [place], [place] [address]Ddxnlqmkaowepj/100 WBC (Bld)2.0 %NormalGerman Hospital Comment on above:Performed By: #### CBCA, CMP #### [facility] ([id number]) [address], [address] [place], [place] [address]Gocjtjnlc/100 WBC (Bld)6.0 %NormalGerman Hospital Comment on above:Performed By: #### CBCA, CMP #### [facility] ([id number]) [address], [address] [place], [place] [address]XCXHZCFCA7.0 %NormalProSelect Medical Ohiohealth Rehabilitation Hospital - Dublinca Saltese HospitalComment on above: Performed By: #### CBCA, CMP #### [facility] ([id number]) [address], [address] [place], [place] [address]NDH COUNT4.15 X10E12/LNormal3.80-5.20ProDiley Ridge Medical Center Hospital Comment on above:Performed By: #### CBCA, CMP #### [facility] ([id number]) [address], [address] [place], [place] [address]PZL morphology finding Nom (Bld)NORMALNormalProDiley Ridge Medical Center HospitalComment on above:Performed By: #### CBCA, CMP #### [facility] ([id number]) [address], [address] [place], [place] [address]ZAH DTKWXATJQB96.0 %NormalProDiley Ridge Medical Center HospitalComment on above:Performed By: #### CBCA, CMP #### [facility] ([id number]) [address], [address] [place], [place] [address]JIB (Bld) [#/Vol]11.3 10*3/uLHigh4.0-11.0ProPremier HealthComment on above:Performed By: #### CBCA, CMP #### [facility] ([id number]) [address], [address] [place], [place] [address]RAY auto differentialon 33-01-6452Adls form neutrophils/100 WBC (Bld)1 %[facility] SystemEosinophils/100 WBC (Bld)10 %ProMedicGlacial Ridge Hospital SystemInterpretation and review of laboratory resultsAbnormalProAultman Hospital SystemLymphocytes/100 WBC (Bld)10 %[facility] HospitalMCHC (RBC) [Mass/Vol] 33 g/dL32 - 36 g/dLProDayton Osteopathic HospitalMetamyelocytes/100 WBC (Bld)2 % [facility] Hospitaledica Health SystemMonocytes/100 WBC (Bld)6 %[facility] Myelocytes/100 WBC (Bld)3 %[facility] HospitalPolymorphonuclear cells/100 WBC (Bld)NORMALOhioHealth Dublin Methodist HospitalRBC (Bld) [#/Vol]4.15 10*6/uLUNC Medical Centeregmented neutrophils/100 WBC (Bld)68 %[facility] HospitalWBC corrected for nucl RBC Auto (Bld) [#/Vol]11.3HighSelect Specialty Hospital - ErieCK Totalon 63-36-5954RB [Catalytic activity/Vol][address] U/L High24 - 170 U/LPrEast Liverpool City Hospital [Catalytic activity/Vol]on 11-10-2024 Interpretation and review of laboratory resultsAbnormalSelect Specialty Hospital - ErieCPK16525 U/VRdww24-554ThiBfgeptGerman HospitalComment on above:Performed By: #### CBCA, CMP #### [facility] ([id number]) [address], [address] [place], [place] [address]XCKCMFZDEDASJ METABOLIC PANELon 43-87-6177Ldvnblk [Mass/Vol]3.7 g/dLNormal3.2-5.3PUniversity Hospitals Elyria Medical CenterComment on above:Performed By: #### CBCA, CMP #### [facility] ([id number]) [address], [address] [place], [place] [address]GJB [Catalytic activity/Vol]155 U/ZXcwe83-235YdhXcqrryOhioHealth Dublin Methodist HospitalComment on above:Performed By: #### CBCA, CMP #### [facility] ([id number]) [address], [address] [place], [place] [address]Ihwne gap [Moles/Vol]7 mmol/LNormal5-15[facility] Comment on above:Performed By: #### CBCA, CMP #### [facility] ([id number]) [address], [address] [place], [place] [address]TEM [Catalytic activity/Vol]389 U/LHigh0-41[facility] SystemComment on above:Performed By: #### CBCA, CMP #### [facility] ([id number]) [address], [address] [place], [place] [address]Abwfgiefo [Mass/Vol]0.8 mg/dLNormal0.3-1.2PCleveland Clinic Union Hospital SystemComment on above:Performed By: #### CBCA, CMP #### [facility] ([id number]) [address], [address] [place], [place] [address]Ftvjrqe [Mass/Vol]8.5 mg/dLNormal8.5-10.5PCleveland Clinic Union Hospital System Comment on above:Performed By: #### CBCA, CMP #### [facility] ([id number]) [address], [address] [place], [place] [address]Anbtzqhx [Moles/Vol]101 mmol/JZjjsru35-552PstGqtmum Health SystemComment on above:Performed By: #### CBCA, CMP #### [facility] ([id number]) [address], [address] [place], [place] [address]VH9 [Moles/Vol]31 mmol/OJfkkkv09-23IwlKikknrUniversity Hospitals Elyria Medical Center Comment on above:Performed By: #### CBCA, CMP #### [facility] ([id number]) [address], [address] [place], [place] [address]Fgdgqpeonv [Mass/Vol]1.48 mg/dLHigh0.40-1.00[facility]wiler Memorial Hospital SystemComment on above:Result Comment: METHOD TRACEABLE TO IDMS STANDARD Performed By: #### CBCA, CMP #### [facility] ([id number]) [address], [address] [place], [place] [address]Ugqrpuf [Mass/Vol]92 mg/mBHnecxr92-38EqpHaesfaOhioHealth Dublin Methodist Hospital Comment on above:Performed By: #### CBCA, CMP #### [facility] ([id number]) [address], [address] [place], [place] [address]Tzluhhygi [Moles/Vol]4.2 mmol/LNormal3.5-5.0[facility] HospitalComment on above:Performed By: #### IJEOMA, CMP #### [facility] ([id number]) [address] [address]Xmwagsv [Mass/Vol]6.3 g/dLNormal6.0-8.0[facility] Comment on above:Performed By: #### CBCSusie, CMP #### [facility] ([id number]) [address] [address]Gfujfv [Moles/Vol]139 mmol/CDwvogz428-688LwyBoawsd Health System Comment on above:Performed By: #### IJEOMA, CMP #### [facility] ([id number]) [address] [address]Vbnj nitrogen [Mass/Vol]16 mg/dLNormal5-23Detwiler [facility] Hospital SystemComment on above:Performed By: #### IJEOMA, CMP #### [facility] ([id number]) [address] [address]EUU [Catalytic activity/Vol]646 U/LHigh0-31Pro[facility] Rehabilitation HospitalComment on above:Performed By: #### CBCA, CMP #### [facility] ([id number]) [address] [address]QTQ/1.73 sq M.predicted among non-blacks MDRD (S/P/Bld) [Vol rate/Area]50 mL/min/{1.73_m2}Low>59ProPremier HealthComment on above: Result Comment: Reported eGFR is based on the CKD-EPI 2020 equation that does not use a race coefficient.Performed By: #### CBCA, CMP #### [facility] ([id number]) [address] [address]Sowxwvm.ionized (Bld) [Mass/Vol]on 87-44-0831BsrUmshhzOhioHealth Dublin Methodist HospitalIONIZED CALCIUM4.6 mg/dLNormal4.5-5.3PWVUMedicine Harrison Community HospitalComment on above:Performed By: #### CBCA, CMP #### [facility] ([id number]) [address] [address], [address] [place], [place] [address]Myiwdsnqkynnr metabolic panelon 43-57-9367QOH No additional P-5'-P [Catalytic activity/Vol]646 U/LHigh0 - 31 U/LPrThe Surgical Hospital at SouthwoodseGFR (CKD-EPI)non-race qemvgccgc96Bnz- PINSelect Medical Specialty Hospital - Columbus SystemInterpretation and review of laboratory resultsAbnoSampson Regional Medical CenterIonized calciumon 73-12-1728Zwiyvaa.ionized (Bld) [Mass/Vol]4.6 mg/dL4.5 - 5.3 mg/dLOhioHealth Dublin Methodist HospitalLaboratory - Chemistry and Chemistry - challengeon 11-10-2024 Magnesium [Mass/Vol]1.9 mg/dLNormal1.8-2.6Ohio[facility] Methodist HospitalComment on above:Performed By: #### CBCA, CMP #### [facility] ([id number]) [address] [facility], [address] [address]Duikawzhe [Mass/Vol]4.3 mg/dLNormal2.4-4.9Ohio[facility] Dublin Methodist HospitalComment on above:Performed By: #### CBCA, CMP #### [facility] ([id number]) [address] [place] [address], [address] [place], [place] [address]Wxhzkfers [Mass/Vol]on [id number] and review of laboratory resultsAbOrthopaedic Hospital of Wisconsin - GlendaleERUM EBIXIHIOT9353.9 ng/qDZxpw55.3-65.8German HospitalComment on above: Performed By: #### CBCA, CMP #### [facility] ([id number]) [address] [facility], [address] [place], [place] [address]Cqmztamai, serumon 57-17-6005Gmcqbztpk [Mass/Vol]1008.9 ng/mL High14.3 - 65.8 ng/mLOhioHealth Dublin Methodist HospitalNo Panel Informationon 11-10-2024 Pro[facility]icWilson Memorial HospitalBILIRUBIN,DIRECTon [id number].direct [Mass/Vol] 0.9 mg/dLHigh0.0-0.4German HospitalComment on above:Performed By: #### CBCA, CMP, 50610-7, 82164-1, TSHR, 93557-2, 2777-1, 2639-3, 2157-6, 3024-7 #### [facility] ([id number]) [address] [place] [address], [address] [place], [place] [address]Odubackfl, directon 32-76-7613Qapaqmekt.direct [Mass/Vol]0.9 mg/dLHigh0.0 - 0.4 mg/dLProDayton Osteopathic HospitalBilirubin.direct [Mass/Vol]on 60-52-1837Bltuzctppkofey and review of laboratory resultsAbnormalProDayton Osteopathic HospitalProDayton Osteopathic HospitalCBC AND AUTO DIFFon 51-51-1784QVIEZNQW BASOPHIL0.0 X10E9/LNormal0.0-0.2PWVUMedicine Harrison Community HospitalComment on above: Performed By: #### CBCA, CMP, 33354-9, 16007-7, TSHR, 27450-4, 2777-1, 2639-3, 2157-6, 3024-7 #### [facility] ([id number]) [address] [place] [address], [address] [place], [place] [address]HIRBWTKK NEUTROPHIL8.0 X10E9/LHigh1.5-6.6German HospitalComment on above:Performed By: #### CBCA, CMP, 93712-9, 36955-7, TSHR, 81360-0, 2777-1, 2639-3, 2157-6, 3024-7 #### [facility] ([id number]) [address] [place], [place] [address]Wbxbylwft/100 WBC (Bld)0.2 %NormalGerman Hospital Comment on above:Performed By: #### CBCA, CMP, 98285-9, 31194-4, TSHR, 78210-4, 2777-1, 2639-3, 2157-6, 3024-7 #### [facility] ([id number]) [address] [place], [place] [address]Jxivwcxdoif (Bld) [#/Vol]0.2 10*3/uLNormal0.0-0.4ProPremier HealthComment on above:Performed By: #### CBCA, CMP, 56609-9, 59259-8, TSHR, 18885-3, 2777-1, 2639-3, 2157-6, 3024-7 #### [facility] ([id number]) [address] [place], [place] [address]Xzihhcybipy/100 WBC (Bld)2.0 %NormalGerman Hospital Comment on above:Performed By: #### CBCA, CMP, 48196-8, 57908-7, TSHR, 13535-6, 2777-1, 2639-3, 2157-6, 3024-7 #### [facility] ([id number]) [address] [place], [place] [address]Qswvqvjiuer distribution width (RBC) [Ratio]13.4 %Normal 11.5-15.0ProPremier HealthComment on above:Performed By: #### CBCA, CMP, 69372-6, 04669-1, TSHR, 34945-6, 2777-1, 2639-3, 2157-6, 3024-7 #### [facility] ([id number]) [address] [place], [place] [address]Rwaksanioy (Bld) [Volume fraction]34.5 %Awk51-83AzkTpssck [place]edo HospitalComment on above:Performed By: #### CBCA, CMP, 10748-2, 26010-1, TSHR, 51574-4, 2777-1, 2639-3, 2157-6, 3024-7 #### [facility] ([id number]) [address], [address] [place], [place] [address]Eyieropalt (Bld) [Mass/Vol]12.0 g/oBIgjecq24.7-15.5ProMedTrinity Health System West CampusComment on above:Performed By: #### CBCA, CMP, 34198-5, 07247-0, TSHR, 66343-2, 2777-1, 2639-3, 2157-6, 3024-7 #### [facility] ([id number]) [address], [address] [place], [place] [address]Laxrbzcwtoc (Bld) [#/Vol]1.3 10*3/uLNormal1.0-3.5PWVUMedicine Harrison Community HospitalComment on above:Performed By: #### CBCA, CMP, 19364-6, 96857-6, TSHR, 43217-5, 2777-1, 2639-3, 2157-6, 3024-7 #### [facility] ([id number]) [address], [address] [place], [place] [address]Ybxyfvyodug/100 WBC (Bld)12.7 %NormalProDiley Ridge Medical Center Hospital Comment on above:Performed By: #### CBCA, CMP, 27160-8, 72228-8, TSHR, 41011-1, 2777-1, 2639-3, 2157-6, 3024-7 #### [facility] ([id number]) [address], [address] [place], [place] [address]NBI (RBC) [Entitic mass]31.3 sxOrphim74-52JgsBchqsn [place] HospitalComment on above:Performed By: #### CBCA, CMP, 79715-8, 67907-5, TSHR, 86764-6, 2777-1, 2639-3, 2157-6, 3024-7 #### [facility] ([id number]) [address] [facility], [address] [place], [place] [address]JFDY (RBC) [Mass/Vol]34.8 g/ePVlzead47-08HrcKxlghv [place] HospitalComment on above:Performed By: #### CBCA, CMP, 08524-8, 71751-6, TSHR, 08117-0, 2777-1, 2639-3, 2157-6, 3024-7 #### [facility] ([id number]) [address] [facility], [address] [place], [place] [address]FHS (RBC) [Entitic vol]90 mOZuxwxt41-886WstKnhqol [place] HospitalComment on above:Performed By: #### CBCA, CMP, 07955-6, 68055-1, TSHR, 94309-2, 2777-1, 2639-3, 2157-6, 3024-7 #### [facility] ([id number]) [address] [facility], [address] [place], [place] [address]Wycsiclkn (Bld) [#/Vol]0.8 10*3/uLNormal0-0.9ProPremier HealthComment on above:Performed By: #### CBCA, CMP, 34027-7, 75051-8, TSHR, 63642-2, 2777-1, 2639-3, 2157-6, 3024-7 #### [facility] ([id number]) [address], [address] [place], [place] [address]Vegyneeun/100 WBC (Bld)7.7 %NormalProPremier Health Comment on above:Performed By: #### CBCA, CMP, 68274-6, 13149-7, TSHR, 30542-7, 2777-1, 2639-3, 2157-6, 3024-7 #### [facility] ([id number]) [address], [address] [place], [place] [address]Uoartpzjbfr/100 WBC (Bld)77.4 %NormalGerman Hospital Comment on above:Performed By: #### CBCA, CMP, 12408-3, 27697-9, TSHR, 23562-9, 2777-1, 2639-3, 2157-6, 3023-7 #### [facility] ([id number]) [address], [address] [place], [place] [address]Ygorrkcy mean volume (Bld) [Entitic vol]8.2 fLNormal7-12 German HospitalComment on above:Performed By: #### CBCA, CMP, 58179-7, 80187-7, TSHR, 34614-2, 2777-1, 2639-3, 2157-6, 3023- #### [facility] ([id number]) [address], [address] [place], [place] [address]Ezzhtqjqw (Bld) [#/Vol]210 10*3/dWBzvwwv286-897AczXvbyngGerman HospitalComment on above:Performed By: #### CBCA, CMP, 20414-6, 17975-4, TSHR, 40480-3, 2777-1, 2639-3, 2157-6, 3023- #### [facility] ([id number]) [address], [address] [place], [place] [address]VPC COUNT3.83 X10E12/LNormal3.80-5.20German [facility] Comment on above:Performed By: #### CBCA, CMP, 93605-8, 77765-0, TSHR, 15401-1, 2777-1, 2639-3, 2157-6, 302-7 #### [facility] ([id number]) [address], [address] [place], [place] [address]JIU (Bld) [#/Vol]10.4 10*3/uLNormal4.0-11.0German HospitalComment on above:Performed By: #### CBCA, CMP, 88027-1, 49672-9, TSHR, 96838-0, 2777-1, 2639-3, 2157-6, 3024-7 #### [facility] ([id number]) [address], [address] [place], [place] [address]QQY auto differentialon 51-07-8395Wnavvzhsg (Bld) [#/Vol]0 10*3/[facility] HospitalBasophils/100 WBC (Bld)0.2 %[facility] HospitalEosinophils (Bld) [#/Vol]0.2 10*3/uLOhioHealth Dublin Methodist HospitalEosinophils/100 WBC (Bld)2 %[facility] HospitalErythrocyte distribution width (RBC) [Ratio] 13.4 %11.5 - 15.0 %[facility] HospitalHematocrit (Bld) [Volume fraction]34.5 %Low35 - 47 %[facility] HospitalHemoglobin (Bld) [Mass/Vol]12 g/dL11.7 - 15.5 g/dLOhioHealth Dublin Methodist HospitalInterpretation and review of laboratory results AbnormalOhioHealth Dublin Methodist HospitalLymphocytes (Bld) [#/Vol]1.3 10*3/uLOhioHealth Dublin Methodist HospitalLymphocytes/100 WBC (Bld)12.7 %[facility] HospitalMCH (RBC) [Entitic mass]31.3 pg27 - 34 [facility] CenterMCHC (RBC) [Mass/Vol]34.8 g/dL32 - 36 g/dLOhioHealth Dublin Methodist HospitalMCV (RBC) [Entitic vol]90 fL80 - 100 fL [facility] HospitalMonocytes (Bld) [#/Vol]0.8 10*3/uLOhioHealth [facility] Hospital Monocytes/100 WBC (Bld)7.7 %[facility] HospitalNeutrophils (Bld) [#/Vol]8 10*3/uLNavos Health SystemNeutrophils/100 WBC (Bld)77.4 %ProMLake City Hospital and Clinic SystemPlatelet mean volume (Bld) [Entitic vol]8.2 fL7 - 12 fLPCleveland Clinic Union Hospital SystemPlatelets (Bld) [#/Vol]210 10*3/uLDetwiler Memorial Hospital SystemRBC (Bld) [#/Vol]3.83 10*6/[facility] HospitalWBC corrected for nucl RBC Auto (Bld) [#/Vol]10.4[facility] Totalon 81-04-7755GV [Catalytic activity/Vol]06194 U/LHigh24 - 170 U/LProMedFirelands Regional Medical Center South Campus [Catalytic activity/Vol]on 04-05-5561PEH75728 U/IPxjf46-839ZbnLbxbebGerman HospitalComment on above:Performed By: #### CBCA, CMP, 44027-7, 27903-5, TSHR, 79693-0, 2777-1, 2639-3, 2157-6, 3024-7 #### [facility] ([id number]) [address] [facility] [address] [facility], [address] [place], [place] [address]KLLXHYHKHJUKZ METABOLIC PANELon 20-05-9089Owetmqa [Mass/Vol]3.7 g/dLNormal3.2-5.3PWVUMedicine Harrison Community HospitalComment on above:Performed By: #### CBCA, CMP, 17297-9, 25036-8, TSHR, 76041-1, 2777-1, 2639-3, 2157-6, 3024-7 #### [facility] ([id number]) [address] [address], [address] [place], [place] [address]ZKG [Catalytic activity/Vol]143 U/HSoyy41-716TcyTjzlqrPremier HealthComment on above:Performed By: #### CBCA, CMP, 39968-8, 16764-4, TSHR, 83127-7, 2777-1, 2639-3, 2157-6, 3024-7 #### [facility] ([id number]) [address], [address] [place], [place] [address]ETV [Catalytic activity/Vol]838 U/LHigh0-31PWVUMedicine Harrison Community HospitalComment on above:Performed By: #### CBCA, CMP, 20761-3, 97254-2, TSHR, 50056-1, 2777-1, 2639-3, 2157-6, 3024-7 #### [facility] ([id number]) [address], [address] [place], [place] [address]Deubt gap [Moles/Vol]9 mmol/LNormal5-15ProPremier Health Comment on above:Performed By: #### CBCA, CMP, 41222-2, 48779-4, TSHR, 81864-4, 2777-1, 2639-3, 2157-6, 3024-7 #### [facility] ([id number]) [address], [address] [place], [place] [address]USO [Catalytic activity/Vol]764 U/LHigh0-41ProPremier HealthComment on above:Performed By: #### CBCA, CMP, 74237-7, 91874-3, TSHR, 37313-0, 2777-1, 2639-3, 2157-6, 3024-7 #### [facility] ([id number]) [address], [address] [place], [place] [address]Oxvbplzhn [Mass/Vol]1.6 mg/dLHigh0.3-1.2PWVUMedicine Harrison Community HospitalComment on above:Performed By: #### CBCA, CMP, 67678-2, 61452-2, TSHR, 82392-9, 2777-1, 2639-3, 2157-6, 3024-7 #### [facility] ([id number]) [address], [address] [place], [place] [address]Pncgthq [Mass/Vol]8.8 mg/dLNormal8.5-10.5PWVUMedicine Harrison Community HospitalComment on above:Performed By: #### CBCA, CMP, 33847-6, 70863-3, TSHR, 85029-2, 2777-1, 2639-3, 2157-6, 3024-7 #### [facility] ([id number]) [address], [address] [place], [place] [address]Gmstcdfx [Moles/Vol]101 mmol/VUqpeds85-098NeuBmwgyi [place] HospitalComment on above:Performed By: #### CBCA, CMP, 99926-5, 45196-1, TSHR, 97814-8, 2777-1, 2639-3, 2157-6, 3024-7 #### [facility] ([id number]) [address], [address] [place], [place] [address]TQ0 [Moles/Vol]30 mmol/BSvuhpc74-05KzfCchwyjWVUMedicine Harrison Community Hospital Comment on above:Performed By: #### CBCA, CMP, 30370-6, 66603-2, TSHR, 63768-5, 2777-1, 2639-3, 2157-6, 3024-7 #### [facility] ([id number]) [address], [address] [place], [place] [address]Etadkraiid [Mass/Vol]1.58 mg/dLHigh0.40-1.00ProPremier HealthComment on above:Result Comment: METHOD TRACEABLE TO IDMS STANDARD Performed By: #### CBCA, CMP, 11098-2, 37414-9, TSHR, 95350-6, 2777-1, 2639-3, 2157-6, 3024-7 #### [facility] ([id number]) [address], [address] [place], [place] [address]IDR/1.73 sq M.predicted among non-blacks MDRD (S/P/Bld) [Vol rate/Area]47 mL/min/{1.73_m2}Low>59ProPremier HealthComment on above: Result Comment: Reported eGFR is based on the CKD-EPI 2020 equation that does not use a race coefficient.Performed By: #### IJEOMA, SYED, 71911-7, 58361-2, TSHR, 39725-1, 2777-1, 2639-3, 2157-6, 3024-7 #### [facility] ([id number]) [address], [address] [place], [place] [address]Mcfefus [Mass/Vol]90 mg/qMVrsfal93-28CdcSnedlw [facility] Comment on above:Performed By: #### IJEOMA, SYED, 88442-1, 23345-7, TSHR, 43056-7, 2777-1, 2639-3, 2157-6, 302-7 #### [facility] ([id number]) [address], [address] [place], [place] [address]Kdumcdwvl [Moles/Vol]4.7 mmol/LNormal3.5-5.0ProPremier HealthComment on above:Performed By: #### IJEOMA, SYED, 75416-3, 55737-2, TSHR, 99922-3, 2777-1, 2639-3, 2157-6, 302-7 #### [facility] ([id number]) [address], [address] [place], [place] [address]Swaruww [Mass/Vol]6.0 g/dLNormal6.0-8.0[facility] Comment on above:Performed By: #### IJEOMA, SYED, 38083-7, 22821-1, TSHR, 06461-0, 2777-1, 2639-3, 2157-6, 3024-7 #### [facility] ([id number]) [address], [address] [place], [place] [address]Hjnytb [Moles/Vol]140 mmol/BUnczij722-427VzkHvkrhq [place] HospitalComment on above:Performed By: #### ANISHA, CMP, 14417-5, 20822-4, TSHR, 02836-6, 2777-1, 2639-3, 2157-6, 3024-7 #### [facility] ([id number]) [address] [place] [address], [address] [place], [place] [address]Gsuq nitrogen [Mass/Vol]22 mg/dLNormal5-23ProPremier HealthComment on above:Performed By: #### CBCA, CMP, 69360-7, 22129-0, TSHR, 38342-3, 2777-1, 2639-3, 2157-6, 3024-7 #### [facility] ([id number]) [address] [place] [address], [address] [place] [address]Oaqvtbo.ionized (Bld) [Mass/Vol]on 58-85-8297NdzHepglaDayton Osteopathic HospitalIONIZED CALCIUM4.5 mg/dLNormal4.5-5.3PWVUMedicine Harrison Community HospitalComment on above:Performed By: #### CBCA, CMP, 63029-5, 51163-1, TSHR, 03392-8, 2777-1, 2639-3, 2157-6, 3024-7 #### [facility] ([id number]) [address] [place] [address], [address] [address]Lehadqhffjhyd metabolic panelon 22-50-5461Lytqjhy [Mass/Vol]3.7 g/dL3.2 - 5.3 g/dLProMedica Health SystemALP [Catalytic activity/Vol]143 U/LHigh 39 - 130 U/LProMedica Health SystemALT No additional P-5'-P [Catalytic activity/Vol]838 U/LHigh0 - 31 U/LProMedica Health SystemAnion gap [Moles/Vol]9 mmol/L5 - 15 mmol/LProMedica Health SystemAST [Catalytic activity/Vol]764 U/L High0 - 41 U/LProMedica Health SystemBilirubin [Mass/Vol]1.6 mg/dLHigh0.3 - 1.2 mg/dLProMedica Health SystemCalcium [Mass/Vol]8.8 mg/dL8.5 - 10.5 mg/dLProAultman Hospital SystemChloride [Moles/Vol]101 mmol/L98 - 109 mmol/LProMedica Health SystemCO2 [Moles/Vol]30 mmol/L22 - 32 mmol/LPrCentennial Peaks Hospital Health SystemCreatinine [Mass/Vol]1.58 mg/dLHigh0.40 - 1.00 mg/dLOhioHealth Dublin Methodist HospitaleGFR (CKD-EPI)non-race twcontjfz74Suq- PINFProMedMercy Hospital SystemGlucose [Mass/Vol] 90 mg/dL65 - 99 mg/dLDetwiler Memorial Hospital SystemPotassium [Moles/Vol]4.7 mmol/L3.5 - 5.0 mmol/LProMedica Health SystemProtein [Mass/Vol]6 g/dL6.0 - 8.0 g/dL [facility] SystemSodium [Moles/Vol]140 mmol/L134 - 146 mmol/[facility] SystemUrea nitrogen [Mass/Vol]22 mg/dL5 - 23 mg/dLOhioHealth Dublin Methodist Hospital Enterovirus PCR, Karri 46-76-1712Mqrcmpnolvs PCRNegativeNegativeProAultman Hospital SystemProAultman Hospital SystemIonized calciumon 17-43-6646Iugrvpf.ionized (Bld) [Mass/Vol]4.5 mg/dL4.5 - 5.3 mg/dLOhioHealth Dublin Methodist HospitalIonized magnesiumon 80-47-3771Lgsdqdybw Ionized ISE (Bld) [Moles/Vol]0.74 mmol/L0.45 - 0.74 mmol/L [facility] HospitalMagnesium Ionized ISE (Bld) [Moles/Vol]0.45 mmol/L0.45 - 0.74 mmol/[facility] SystemMAGNESIUMon 90-37-1016Vvtsoadrm [Mass/Vol]1.7 mg/dLLow1.8-2.6German HospitalComment on above:Performed By: #### CBCA, CMP, 35523-4, 60851-7, TSHR, 86803-1, 2777-1, 2639-3, 2157-6, 3024-7 #### [facility] ([id number]) [address] [facility], [address] [place], [place] [address]Nmffroiezpq 08-01-6359Nhvfbahbb [Mass/Vol]1.7 mg/dLLow1.8 - 2.6 mg/dLProAultman Hospital SystemMagnesium Ionized ISE (Bld) [Moles/Vol]on 11-09-2024 [facility] SystemMagnesium [Moles/Vol]0.74 mmol/LNormal0.45-0.74ProDiley Ridge Medical Center HospitalComment on above:Result Comment: NEW REFERENCE RANGEPerformed By: #### CBCA, CMP, 81597-9, 42868-7, TSHR, 45234-6, 2777-1, 2639-3, 2157-6, 3024-7 #### [facility] ([id number]) [address] [place] [address], [address] [place], [place] [address]IyiDxaizh Health SystemMagnesium [Moles/Vol]0.45 mmol/LNormal 0.45-0.74ProPremier HealthComment on above:Result Comment: NEW REFERENCE RANGEPerformed By: #### CBCA, CMP, 16727-5, 10092-3, TSHR, 17328-9, 2777-1, 2639-3, 2157-6, 3024-7 #### [facility] ([id number]) [address] [facility], [address] [place], [place] [address]Sldrsdaka [Mass/Vol]on 88-96-1227WHBEZ JYMVLBBIF5229.9 ng/mLHigh 14.3-65.8ProPremier HealthComment on above:Performed By: #### CBCA, CMP, 44405-5, 99631-3, TSHR, 31415-1, 2777-1, 2639-3, 2157-6, 3024-7 #### [facility] ([id number]) [address] [facility], [address] [place], [place] [address]Pfwkxahlb, serumon 30-72-7365Oamiucabu [Mass/Vol]2894.9 ng/mL High14.3 - 65.8 ng/mLProRegional Medical Center Of Jacksonville Health SystemNo Panel Informationon 11-09-2024 Interpretation and review of laboratory resultsAbnormalSelect Specialty Hospital - EriePHOSPHORUSon 12-08-9170Enrsfroui [Mass/Vol]4.1 mg/dL Normal2.4-4.9ProPremier HealthComment on above:Performed By: #### CBCA, CMP, 90620-4, 23748-3, TSHR, 26405-0, 2777-1, 2639-3, 2157-6, 3024-7 #### [facility] ([id number]) [address], [address] [place], [place] [address]MOGUPICVWdu 78-96-1607Lmncaeard [Moles/Vol]4.1 mmol/LNormal 3.5-5.0ProPremier HealthComment on above:Performed By: #### IJEOMA, CMP #### [facility] ([id number]) [address], [address] [place], [place] [address]Zztpwiiazndd 65-85-2745Ushgyieph [Mass/Vol]4.1 mg/dL2.4 - 4.9 mg/dLOhioHealth Dublin Methodist HospitalPotassiumon 82-98-6964Vvtlqafxt [Moles/Vol]4.1 mmol/L3.5 - 5.0 mmol/LProMedSt. Elizabeth HospitalPotassium [Moles/Vol]on 11-09-2024 [facility] HospitalBASIC METABOLIC PANLon 44-34-7270Sondb gap [Moles/Vol]5 mmol/LNormal5-15ProPremier HealthComment on above:Performed By: #### CBCA, CMP, 90995-6, 00001-9, TSHR, 81432-4, 2777-1, 2639-3, 2157-6, 3024-7 #### [facility] ([id number]) [address], [address] [place], [place] [address]Svcbedh [Mass/Vol]7.7 mg/dLLow8.5-10.5PWVUMedicine Harrison Community Hospital Comment on above:Performed By: #### CBCA, CMP, 54108-0, 47276-0, TSHR, 55534-6, 2777-1, 2639-3, 2157-6, 3024-7 #### [facility] ([id number]) [address], [address] [place], [place] [address]Jawcmpcy [Moles/Vol]108 mmol/BJmxolu72-803HbjMeioyr [place] HospitalComment on above:Performed By: #### CBCA, CMP, 28641-1, 11252-1, TSHR, 86817-4, 2777-1, 2639-3, 2157-6, 3024-7 #### [facility] ([id number]) [address], [address] [place], [place] [address]ZZ1 [Moles/Vol]28 mmol/NXkbnsf80-26LirVssxnkWVUMedicine Harrison Community Hospital Comment on above:Performed By: #### ANISHA, CMP, 84183-1, 48001-2, TSHR, 31094-3, 2777-1, 2639-3, 2157-6, 3024-7 #### [facility] ([id number]) [address], [address] [place], [place] [address]Lisyhiumac [Mass/Vol]1.51 mg/dLHigh0.40-1.00ProPremier HealthComment on above:Result Comment: METHOD TRACEABLE TO IDMS STANDARD Performed By: #### ANISHA, CMP, 46014-5, 10662-7, TSHR, 81305-9, 2777-1, 2639-3, 2157-6, 3024-7 #### [facility] ([id number]) [address], [address] [place], [place] [address]IZI/1.73 sq M.predicted among non-blacks MDRD (S/P/Bld) [Vol rate/Area]49 mL/min/{1.73_m2}Low>59ProPremier HealthComment on above: Result Comment: Reported eGFR is based on the CKD-EPI 2020 equation that does not use a race coefficient.Performed By: #### CBCA, CMP, 43515-7, 66754-8, TSHR, 03979-6, 2777-1, 2639-3, 2157-6, 3024-7 #### [facility] ([id number]) [address], [address] [place], [place] [address]Clgtmwj [Mass/Vol]77 mg/rHGmlgex91-01YswFkfxtp [facility] Comment on above:Performed By: #### CBCA, CMP, 20200-1, 16501-1, TSHR, 68123-2, 2777-1, 2639-3, 2157-6, 3024-7 #### [facility] ([id number]) [address], [address] [place], [place] [address]Ekxiloxhq [Moles/Vol]3.3 mmol/LLow3.5-5.0ProPremier HealthComment on above:Performed By: #### CBCA, CMP, 11777-2, 77927-8, TSHR, 53403-3, 2777-1, 2639-3, 2157-6, 3024-7 #### [facility] ([id number]) [address], [address] [place], [place] [address]Pajdoh [Moles/Vol]141 mmol/BTmdeoo466-143DyyPoezsk [facility] HospitalComment on above:Performed By: #### CBCA, CMP, 69323-3, 82884-1, TSHR, 31786-9, 2777-1, 2639-3, 2157-6, 3024-7 #### [facility] ([id number]) [address], [address] [place], [place] [address]Hwjl nitrogen [Mass/Vol]24 mg/dLHigh5-23ProPremier HealthComment on above:Performed By: #### CBCA, CMP, 15934-9, 67796-5, TSHR, 84551-4, 2777-1, 2639-3, 2157-6, 3024-7 #### [facility] ([id number]) [address] [place], [place] [address]Siuja Metabolic Panelon [id number] gap [Moles/Vol]5 mmol/L5 - 15 mmol/LProMedica Health SystemCalcium [Mass/Vol]7.7 mg/dLLow8.5 - 10.5 mg/dLProRegional [facility] Health SystemChloride [Moles/Vol]108 mmol/L98 - 109 mmol/L ProMedic Health SystemCO2 [Moles/Vol]28 mmol/L22 - 32 mmol/LProMedhartselle medical center Health SystemCreatinine [Mass/Vol]1.51 mg/dLHigh0.40 - 1.00 mg/dLDetwiler Memorial Hospital SystemeGFR (CKD-EPI)non-race cdklnpqob78Nfs- PINFPCleveland Clinic Union Hospital SystemGlucose [Mass/Vol]77 mg/dL65 - 99 mg/dLDetwiler Memorial Hospital SystemInterpretation and review of laboratory resultsAbnormalProRegional [facility] Health SystemPotassium [Moles/Vol]3.3 mmol/LLow3.5 - 5.0 mmol/LProMedica Health SystemSodium [Moles/Vol]141 mmol/L134 - 146 mmol/[facility] BaptistoMedica Health SystemUrea nitrogen [Mass/Vol]24 mg/dLHigh5 - 23 mg/dLProAultman Hospital SystemProRegional [facility] Health SystemCBC AND AUTO DIFFon 07-98-0340GRBLSFND BASOPHIL0.0 X10E9/LNormal0.0-0.2PWVUMedicine [facility] Comment on above:Performed By: #### CBCA, CMP, 24581-8, 61134-4, TSHR, 75929-1, 2777-1, 2639-3, 2157-6, 3024-7 #### [facility] ([id number]) [address] [place], [place] [address]BNRSEEDO NEUTROPHIL8.3 X10E9/LHigh1.5-6.6German HospitalComment on above:Performed By: #### CBCA, CMP, 71646-6, 36630-8, TSHR, 95380-6, 2777-1, 2639-3, 2157-6, 3024-7 #### [facility] ([id number]) [address], [address] [place], [place] [address]Ybbcjvolz/100 WBC (Bld)0.2 %NormalGerman Hospital Comment on above:Performed By: #### CBCA, CMP, 85707-4, 96022-6, TSHR, 36254-2, 2777-1, 2639-3, 2157-6, 3024-7 #### [facility] ([id number]) [address] [place], [place] [address]Glxdmxjkckp (Bld) [#/Vol]0.0 10*3/uLNormal0.0-0.4ProPremier HealthComment on above:Performed By: #### CBCA, CMP, 58006-4, 29332-5, TSHR, 04886-0, 2777-1, 2639-3, 2157-6, 3024-7 #### [facility] ([id number]) [address], [address] [place], [place] [address]Ayqwnqgcgdw/100 WBC (Bld)0.1 %NormalGerman Hospital Comment on above:Performed By: #### CBCA, CMP, 26029-2, 82912-0, TSHR, 06342-3, 2777-1, 2639-3, 2157-6, 3024-7 #### [facility] ([id number]) [address], [address] [place], [place] [address]Vvylfsgkxpk distribution width (RBC) [Ratio]13.4 %Normal 11.5-15.0ProPremier HealthComment on above:Performed By: #### CBCA, CMP, 87852-1, 72721-4, TSHR, 06710-7, 2777-1, 2639-3, 2157-6, 3024-7 #### [facility] ([id number]) [address], [address] [place], [place] [address]Myqyiaxizh (Bld) [Volume fraction]27.9 %Yzm87-17DraHspmxfPremier HealthComment on above:Performed By: #### CBCA, CMP, 29638-2, 41895-0, TSHR, 21329-4, 2777-1, 2639-3, 2157-6, 302-7 #### [facility] ([id number]) [address], [address] [place], [place] [address]Kplfrlejxz (Bld) [Mass/Vol]9.5 g/dLLow11.7-15.5PWVUMedicine Harrison Community HospitalComment on above:Performed By: #### CBCA, CMP, 63001-4, 80565-7, TSHR, 67999-5, 2777-1, 2639-3, 2157-6, 3023-7 #### [facility] ([id number]) [address], [address] [place], [place] [address]Jvgeezjqvrq (Bld) [#/Vol]1.8 10*3/uLNormal1.0-3.5PWVUMedicine Harrison Community HospitalComment on above:Performed By: #### CBCA, CMP, 20018-3, 52035-9, TSHR, 89815-0, 2777-1, 2639-3, 2157-6, 3023- #### [facility] ([id number]) [address], [address] [place], [place] [address]Ousodwjzdlo/100 WBC (Bld)16.1 %NormalGerman Hospital Comment on above:Performed By: #### CBCA, CMP, 30380-7, 20017-4, TSHR, 25953-1, 2777-1, 2639-3, 2157-6, 3023-7 #### [facility] ([id number]) [address], [address] [place], [place] [address]CXO (RBC) [Entitic mass]30.9 juGddxdw99-67IjaVdkgaa [place] HospitalComment on above:Performed By: #### CBCA, CMP, 34900-9, 85896-3, TSHR, 75400-9, 2777-1, 2639-3, 2157-6, 3024-7 #### [facility] ([id number]) [address], [address] [place], [place] [address]VBEO (RBC) [Mass/Vol]34.2 g/zNOsushg85-43BviQiaugw [place] HospitalComment on above:Performed By: #### CBCA, CMP, 34951-8, 04082-2, TSHR, 36263-0, 2777-1, 2639-3, 2157-6, 3024-7 #### [facility] ([id number]) [address], [address] [place], [place] [address]WVA (RBC) [Entitic vol]90 dVKsdwzc43-829ApcHplxdn [place] HospitalComment on above:Performed By: #### CBCA, CMP, 70793-5, 25493-7, TSHR, 23186-9, 2777-1, 2639-3, 2157-6, 3024-7 #### [facility] ([id number]) [address], [address] [place], [place] [address]Kdaomsjnh (Bld) [#/Vol]0.9 10*3/uLNormal0-0.9ProDiley Ridge Medical Center HospitalComment on above:Performed By: #### CBCA, CMP, 52376-0, 15362-9, TSHR, 14725-4, 2777-1, 2639-3, 2157-6, 3024-7 #### [facility] ([id number]) [address], [facility] [address] [place], [place] [address]Vqjjjpnrt/100 WBC (Bld)7.9 %NormalProMedica Hassan Hospital Comment on above:Performed By: #### CBCA, CMP, 70850-3, 37784-3, TSHR, 51950-4, 2777-1, 2639-3, 2157-6, 3024-7 #### [facility] ([id number]) [address], [address] [place], [place] [address]Axfujwwcops/100 WBC (Bld)75.7 %NormalGerman Hospital Comment on above:Performed By: #### CBCA, CMP, 53437-4, 76082-9, TSHR, 93548-7, 2777-1, 2639-3, 2157-6, 3024-7 #### [facility] ([id number]) [address], [address] [place], [place] [address]Dvbtzohe mean volume (Bld) [Entitic vol]8.2 fLNormal7-12 German HospitalComment on above:Performed By: #### CBCA, CMP, 64351-7, 99417-7, TSHR, 96337-7, 2777-1, 2639-3, 2157-6, 3024-7 #### [facility] ([id number]) [address], [address] [place], [place] [address]Bygvjhepx (Bld) [#/Vol]203 10*3/cSLamjum158-979GxqJeyrje [place] HospitalComment on above:Performed By: #### CBCA, CMP, 05926-2, 53861-4, TSHR, 96003-6, 2777-1, 2639-3, 2157-6, 3024-7 #### [facility] ([id number]) [address], [address] [place], [place] [address]RQQ COUNT3.09 X10E12/LLow3.80-5.20[facility] Comment on above:Performed By: #### CBCA, CMP, 51060-2, 50077-7, TSHR, 51544-8, 2777-1, 2639-3, 2157-6, 3024-7 #### [facility] ([id number]) [address] [facility], [address] [place], [place] [address]IZC (Bld) [#/Vol]11.0 10*3/uLNormal4.0-11.0German HospitalComment on above:Performed By: #### CBCA, CMP, 87420-0, 82666-7, TSHR, 25588-0, 2777-1, 2639-3, 2157-6, 3024-7 #### [facility] ([id number]) [address] [facility], [address] [place], [place] [address]TGN auto differentialon 33-70-8209Mrurmkabv (Bld) [#/Vol]0 10*3/uLOhioHealth Dublin Methodist HospitalBasophils/100 WBC (Bld)0.2 %[facility] HospitalEosinophils (Bld) [#/Vol]0 10*3/uLOhioHealth Dublin Methodist HospitalEosinophils/100 WBC (Bld)0.1 %[facility] HospitalErythrocyte distribution width (RBC) [Ratio]13.4 %11.5 - 15.0 %[facility] HospitalHematocrit (Bld) [Volume fraction]27.9 %Low35 - 47 %[facility] HospitalHemoglobin (Bld) [Mass/Vol]9.5 g/dLLow11.7 - 15.5 g/dLOhioHealth Dublin Methodist HospitalInterpretation and review of laboratory resultsAbnormalOhioHealth Dublin Methodist HospitalLymphocytes (Bld) [#/Vol]1.8 10*3/uLOhioHealth Dublin Methodist HospitalLymphocytes/100 WBC (Bld)16.1 %[facility] HospitalMCH (RBC) [Entitic mass]30.9 pg27 - 34 [facility] Medical CenterMCHC (RBC) [Mass/Vol]34.2 g/dL32 - 36 g/dLOhioHealth Dublin Methodist HospitalMCV (RBC) [Entitic vol]90 fL80 - 100 [facility] HospitalMonocytes (Bld) [#/Vol]0.9 10*3/[facility] SystemMonocytes/100 WBC (Bld)7.9 %[facility] SystemNeutrophils (Bld) [#/Vol]8.3 10*3/uLHighDetwiler Memorial Hospital SystemNeutrophils/100 WBC (Bld)75.7 %[facility] SystemPlatelet mean volume (Bld) [Entitic vol]8.2 fL7 - 12 fL [facility] SystemPlatelets (Bld) [#/Vol]203 10*3/uLDetwiler Memorial Hospital System RBC (Bld) [#/Vol]3.09 10*6/[facility]-FlintWBC corrected for nucl RBC Auto (Bld) [#/Vol]11[facility] Totalon 53-82-0251SD [Catalytic activity/Vol]67260 U/LHigh24 - 170 U/[facility] [Catalytic activity/Vol]on 53-45-1575Hqsqdxnrqqwecq and review of laboratory resultsAbnormalProPenn State HealthCPK34826 U/PStwb24-393PldWbnoowGerman HospitalComment on above:Performed By: #### CBCA, SYED, 38147-6, 27024-3, TSHR, 53862-8, 2777-1, 2639-3, 2157-6, 3024-7 #### [facility] ([id number]) [address] [place] [address], [address] [place], [place] [address]Lmzydvb.ionized (Bld) [Mass/Vol]on 47-89-9758FtwPwlfcnOhioHealth Dublin Methodist HospitalIONIZED CALCIUM4.6 mg/dLNormal4.5-5.3PWVUMedicine Harrison Community HospitalComment on above:Performed By: #### CBCA, CMP, 24594-8, 85247-9, TSHR, 99470-6, 2777-1, 2639-3, 2157-6, 3024-7 #### [facility] ([id number]) [address] [place] [address], [address] [place], [place] [address]Noqkkzatb (Vitamin B12) [Mass/Vol]on 33-82-0092IqxWeeckv Health SystemFERRITINon 46-93-1597Fzmqoryc [Mass/Vol]214 ng/qTUwgouy71-475UigTynbtk [place] HospitalComment on above:Performed By: #### SYED RAPHAEL, 01866-3, 44701-4, TSHR, 29122-7, 2777-1, 2639-3, 2157-6, 3024-7 #### [facility] ([id number]) [address] [place] [address], [address] [place], [place] [address]Xivohparen 28-41-1593Sovtguph [Mass/Vol]214 ng/mL11 - 307 ng/mL ProMSCCI Hospital LimaFerritin [Mass/Vol]on 87-48-9575NhlQwlizqDayton Osteopathic Hospital Folateon 90-74-2505Xhevgd [Mass/Vol]9.4 ng/mL5.8 - PINF ng/mLOhioHealth Dublin Methodist HospitalFolate [Mass/Vol]on 30-07-6956VabRzwqdjOhioHealth Dublin Methodist HospitalFOLIC ACID9.4 ng/mL Normal>5.8German HospitalComment on above:Result Comment: NEW REFERENCE RANGEPerformed By: #### SYED RAPHAEL, 80292-8, 05825-8, TSHR, 82983-9, 2777-1, 2639-3, 2157-6, 3024-7 #### [facility] ([id number]) [address] [place] [address], [address] [place], [place] [address]Vevxfqh Glucometer (BldC) [Mass/Vol]on 85-91-2611Bumubrk [Mass/Vol]153 mg/uDOgrc23 - 99 mg/dLOhioHealth Dublin Methodist HospitalInterpretation and review of laboratory resultsAbnormalProDayton Osteopathic HospitalProDayton Osteopathic HospitalGlucose [Mass/Vol]153 mg/yIJgfd62-84EliDpqxqmPremier HealthIRON PROFILE on 45-33-2177Buvl [Mass/Vol]70 ug/pIJvflkh93-448MsnRucdca [place] HospitalComment on above:Performed By: #### CBCA, CMP, 49178-2, 21222-1, TSHR, 33449-7, 2777-1, 2639-3, 2157-6, 3024-7 #### [facility] ([id number]) [address], [address] [place], [place] [address]OJQO DURCHIV772 ug/bSNtxcsh215-617NjlNruqdbGerman Hospital Comment on above:Performed By: #### CBCA, CMP, 43411-4, 10089-8, TSHR, 55850-7, 2777-1, 2639-3, 2157-6, 3024-7 #### [facility] ([id number]) [address] [address], [address] [place], [place] [address]AJHN LKYEIBXLDX41 % AMEDMAXPTIIwjnuj08-06GmwAvzggc [place] HospitalComment on above:Performed By: #### ANISHA, CMP, 18845-7, 84131-8, TSHR, 79292-0, 2777-1, 2639-3, 2157-6, 3024-7 #### [facility] ([id number]) [address] [facility], [address] [place], [place] [address]Wzdxryi calciumon 03-21-3737Vhczfnq.ionized (Bld) [Mass/Vol]4.6 mg/dL4.5 - 5.3 mg/dLOhioHealth Dublin Methodist HospitalIonized magnesiumon 11-08-2024 Magnesium Ionized ISE (Bld) [Moles/Vol]0.63 mmol/L0.45 - 0.74 mmol/LProMedica [facility] SystemIron and TIBCon 96-96-1604Pvnk [Mass/Vol]70 ug/dL50 - 170 ug/dL [facility] SystemIron binding capacity [Mass/Vol]358 ug/dL250 - 425 ug/dL [facility]ed[facility] SystemIron saturation [Mass fraction]20ProDayton Osteopathic Hospital MAGNESIUMon 20-62-2292Boxxiirfk [Mass/Vol]1.9 mg/dLNormal1.8-2.6ProPremier HealthComment on above:Performed By: #### CBCA, CMP, 49193-2, 39173-7, TSHR, 47533-7, 2777-1, 2639-3, 2157-6, 3024-7 #### [facility] ([id number]) [address] [facility], [address] [place], [place] [address]Twmwzwipnhn 29-62-6741Nvrpqxyyz [Mass/Vol]1.9 mg/dL1.8 - 2.6 mg/dLOhioHealth Dublin Methodist HospitalMagnesium Ionized ISE (Bld) [Moles/Vol]on 11-08-2024 [facility] HospitalMagnesium [Moles/Vol]0.63 mmol/LNormal0.45-0.74ProPremier HealthComment on above:Result Comment: NEW REFERENCE RANGEPerformed By: #### CBCA, CMP, 75084-9, 28840-5, TSHR, 66726-0, 2777-1, 2639-3, 2157-6, 3024-7 #### [facility] ([id number]) [address] [facility], [address] [place], [place] [address]Yzbbyemjv [Mass/Vol]on 07-65-9854Klzepmynipoeva and review of laboratory resultsAbnormalUNC Medical CenterERUM EQXZCHSDU7770.6 ng/mLHigh 14.3-65.8German HospitalComment on above:Performed By: #### CBCA, CMP, 13738-7, 32276-8, TSHR, 32263-1, 2777-1, 2639-3, 2157-6, 3024-7 #### [facility] ([id number]) [address] [facility], [address] [place], [place] [address]Oiywefsdc, serumon 04-59-4948Kxbxkisae [Mass/Vol]3593.6 ng/mL High14.3 - 65.8 ng/mLOhioHealth Dublin Methodist HospitalNeutrophil cytoplasmic Ab panel IF (S)on 53-02-9596i-ANCANegativeNegativeOhioHealth Dublin Methodist HospitalNeutrophil cytoplasmic Ab.perinuclear IF Ql (S)NegativeNegativeProMarshfield Medical Center Beaver Dam SystemNo Panel Informationon 32-71-3541OctWufmwiAgnesian HealthCare SystemPHOSPHORUSon 85-26-9271Qgtjeegud [Mass/Vol]2.7 mg/dL Normal2.4-4.9ProDiley Ridge Medical Center HospitalComment on above:Performed By: #### IJEOMA, CMP, 16136-4, 78475-2, TSHR, 64861-5, 2777-1, 2639-3, 2157-6, 3024-7 #### [facility] ([id number]) [address] [facility], [address] [place], [place] [address]HBGWZBCDDso 63-09-9797Iyxhtoczd [Moles/Vol]3.8 mmol/LNormal 3.5-5.0ProDiley Ridge Medical Center HospitalComment on above:Performed By: #### IJEOMA, SYED, 84016-4, 75140-5, TSHR, 54912-0, 2777-1, 2639-3, 7-6, 4-7 #### [facility] ([id number]) [address] [facility] [facility], [address] [place], [place] [address]Fmwpqfxco [Moles/Vol]4.0 mmol/LNormal3.5-5.0ProDiley Ridge Medical Center HospitalComment on above:Performed By: #### IJEOMA, CMP, 99362-6, 70208-8, TSHR, 29234-9, 2777-1, 2639-3, 2157-6, 4-7 #### [facility] ([id number]) [address] [facility] [address], [address] [place], [place] [address]Zchfmazhq [Moles/Vol]3.8 mmol/LNormal3.5-5.0ProDiley Ridge Medical Center HospitalComment on above:Performed By: #### ANISHA, CMP, 36477-7, 31291-0, TSHR, 15898-6, 2777-1, 2639-3, 2157-6, 3024-7 #### [facility] ([id number]) [address] [facility] [facility], [address] [place], [place] [address]Szlbtfatvofh 48-48-6352Sqhhqnmfx [Mass/Vol]2.7 mg/dL2.4 - 4.9 mg/dLProRegional Medical Center Of Jacksonville Health SystemPotassiumon 58-84-9770Mkxbhdtjo [Moles/Vol]3.8 mmol/L3.5 - 5.0 mmol/LProMedhartselle medical center Health SystemPotassium [Moles/Vol]4 mmol/L3.5 - 5.0 mmol/LProMedica Health SystemPotassium [Moles/Vol]3.8 mmol/L3.5 - 5.0 mmol/L [facility] HospitalPotassium [Moles/Vol]on 91-60-5785GgwGlmhpaMarshfield Medical Center Beaver Dam SystemVITAMIN B12on 59-99-2857Caczinwjk (Vitamin B12) [Mass/Vol]525 pg/dDExqxqq071-440AbdZihmsf [place] HospitalComment on above: Performed By: #### CBCA, CMP, 29741-9, 39255-2, TSHR, 73002-2, 2777-1, 2639-3, 2157-6, 3024-7 #### [facility] ([id number]) [address] [facility], [address] [place], [place] [address]Okiztjf B12on 72-75-6053Israftjxn (Vitamin B12) [Mass/Vol]525 pg/mL180 - 914 pg/mLDetwiler Memorial Hospital SystemANA Screen w/ Reflexon 11-07-2024 Nuclear Ab IA Ql (S)NegativeNegative^NegativeProAultman Hospital SystemAldolaseon 08-58-6031Rvmmxzdb [Catalytic activity/Vol]241 mU/mLHigh1.2 - 7.6 U/LPrCentennial Peaks Hospital Health SystemAldolase [Catalytic activity/Vol]on 32-61-4644Yemnpuztiqfgpq and review of laboratory resultsAbnormalProAultman Hospital SystemProAultman Hospital SystemCBC AND AUTO DIFFon 69-47-3171WURABMSY BASOPHIL0.1 X10E9/LNormal0.0-0.2 German HospitalComment on above:Performed By: #### CBCA, CMP, 70590-3, 34124-8, TSHR, 55400-8, 2777-1, 2639-3, 2157-6, 3024-7 #### [facility] ([id number]) [address], [address] [place], [place] [address]CBIZPBER DWFAISHNNI76.3 X10E9/LHigh1.5-6.6ProPremier HealthComment on above:Performed By: #### CBCA, CMP, 76266-9, 85229-5, TSHR, 43696-1, 2777-1, 2639-3, 2157-6, 3024-7 #### [facility] ([id number]) [address] [facility] [address], [address] [place], [place] [address]Dsqtdfjys/100 WBC (Bld)0.4 %NormalGerman Hospital Comment on above:Performed By: #### CBCA, CMP, 02682-9, 77645-9, TSHR, 99947-9, 2777-1, 2639-3, 2157-6, 3024-7 #### [facility] ([id number]) [address], [address] [place], [place] [address]Yeweidtjegr (Bld) [#/Vol]0.0 10*3/uLNormal0.0-0.4ProPremier HealthComment on above:Performed By: #### CBCA, CMP, 65025-6, 47060-8, TSHR, 16340-8, 2777-1, 2639-3, 2157-6, 3024-7 #### [facility] ([id number]) [address], [address] [place], [place] [address]Zpmfvlabeyj/100 WBC (Bld)0.0 %NormalGerman Hospital Comment on above:Performed By: #### CBCA, CMP, 93739-0, 09995-5, TSHR, 67509-0, 2777-1, 2639-3, 2157-6, 3024-7 #### [facility] ([id number]) [address], [address] [place], [place] [address]Fjglfejjyqs distribution width (RBC) [Ratio]13.4 %Normal 11.5-15.0German HospitalComment on above:Performed By: #### CBCA, CMP, 09021-8, 02459-3, TSHR, 70211-7, 2777-1, 2639-3, 2157-6, 3024-7 #### [facility] ([id number]) [address], [address] [place], [place] [address]Pjtepylxin (Bld) [Volume fraction]30.8 %Rti15-95RcgMzdmtqPremier HealthComment on above:Performed By: #### CBCA, CMP, 68662-6, 59502-6, TSHR, 32895-1, 2777-1, 2639-3, 2157-6, 3024-7 #### [facility] ([id number]) [address], [address] [place], [place] [address]Uznpwbikek (Bld) [Mass/Vol]10.5 g/dLLow11.7-15.5PWVUMedicine Harrison Community HospitalComment on above:Performed By: #### CBCA, CMP, 90789-6, 10453-0, TSHR, 16618-6, 2777-1, 2639-3, 2157-6, 3024-7 #### [facility] ([id number]) [address], [address] [place], [place] [address]Hjiunmqbwre (Bld) [#/Vol]0.9 10*3/uLLow1.0-3.5PWVUMedicine Harrison Community HospitalComment on above:Performed By: #### CBCA, CMP, 31412-4, 98599-3, TSHR, 51874-9, 2777-1, 2639-3, 2157-6, 3024-7 #### [facility] ([id number]) [address], [address] [place], [place] [address]Zipflvcyvuw/100 WBC (Bld)5.2 %NormalProPremier Health Comment on above:Performed By: #### CBCA, CMP, 90138-8, 60072-4, TSHR, 95975-5, 2777-1, 2639-3, 2157-6, 3024-7 #### [facility] ([id number]) [address], [address] [place], [place] [address]XMO (RBC) [Entitic mass]30.6 quXirydm70-90MzeSvkdup [place] HospitalComment on above:Performed By: #### CBCA, CMP, 61576-8, 15465-9, TSHR, 15518-5, 2777-1, 2639-3, 2157-6, 3024-7 #### [facility] ([id number]) [address], [address] [place], [place] [address]ZMYS (RBC) [Mass/Vol]34.1 g/nYOqwgjp94-50NvoXeduux [place] HospitalComment on above:Performed By: #### CBCA, CMP, 66452-4, 45972-1, TSHR, 41805-7, 2777-1, 2639-3, 2157-6, 3024-7 #### [facility] ([id number]) [address], [address] [place], [place] [address]HXQ (RBC) [Entitic vol]90 zUXzoeko49-775OtcShjyjk [place] HospitalComment on above:Performed By: #### CBCA, CMP, 16859-6, 75590-1, TSHR, 61506-0, 2777-1, 2639-3, 2157-6, 3024-7 #### [facility] ([id number]) [address], [address] [place], [place] [address]Vtjpmrlch (Bld) [#/Vol]0.8 10*3/uLNormal0-0.9ProPremier HealthComment on above:Performed By: #### CBCA, CMP, 04439-3, 57974-3, TSHR, 14867-3, 2777-1, 2639-3, 2157-6, 3024-7 #### [facility] ([id number]) [address], [address] [place], [place] [address]Aeyfseroy/100 WBC (Bld)4.5 %NormalGerman Hospital Comment on above:Performed By: #### CBCA, CMP, 41482-2, 61276-4, TSHR, 26448-1, 2777-1, 2639-3, 2157-6, 3024-7 #### [facility] ([id number]) [address], [address] [place], [place] [address]Hwtiqbtbqqo/100 WBC (Bld)89.9 %NormalGerman Hospital Comment on above:Performed By: #### CBCA, CMP, 25106-4, 82850-0, TSHR, 38798-5, 2777-1, 2639-3, 2157-6, 3024-7 #### [facility] ([id number]) [address], [address] [place], [place] [address]Hfypwpmf mean volume (Bld) [Entitic vol]8.7 fLNormal7-12 [facility] HospitalComment on above:Performed By: #### CBCA, CMP, 47135-3, 09713-2, TSHR, 52941-6, 2777-1, 2639-3, 2157-6, 3024-7 #### [facility] ([id number]) [address], [address] [place], [place] [address]Udqftmxtl (Bld) [#/Vol]243 10*3/jWEyukwi228-211LzwAmlbwt [place] HospitalComment on above:Performed By: #### CBCA, CMP, 24432-9, 51833-0, TSHR, 02137-3, 2777-1, 2639-3, 2157-6, 3024-7 #### [facility] ([id number]) [address] [place], [place] [address]RIE COUNT3.44 X10E12/LLow3.80-5.20[facility] Comment on above:Performed By: #### CBCA, CMP, 14824-4, 02809-0, TSHR, 26375-9, 2777-1, 2639-3, 2156-6, 3023-7 #### [facility] ([id number]) [address], [address] [place], [place] [address]ZUQ (Bld) [#/Vol]18.1 10*3/uLHigh4.0-11.0German HospitalComment on above:Performed By: #### CBCA, CMP, 69549-4, 10263-6, TSHR, 72727-4, 2777-1, 9-3, 2156-6, 3023-7 #### [facility] ([id number]) [address], [address] [place], [place] [address]TNN auto differentialon 65-76-9831Ifjhymrab (Bld) [#/Vol]0.1 10*3/uLProMedica Health SystemBasophils/100 WBC (Bld)0.4 %[facility]edicGl[facility] SystemEosinophils (Bld) [#/Vol]0 10*3/uLProMedica Health SystemEosinophils/100 WBC (Bld)0 %[facility] Health SystemErythrocyte distribution width (RBC) [Ratio] 13.4 %11.5 - 15.0 %[facility] SystemHematocrit (Bld) [Volume fraction]30.8 %Low35 - 47 %[facility] SystemHemoglobin (Bld) [Mass/Vol]10.5 g/dLLow11.7 - 15.5 g/dLDetwiler Memorial Hospital SystemInterpretation and review of laboratory resultsAbnormalProAultman Hospital SystemLymphocytes (Bld) [#/Vol]0.9 10*3/uLLow [facility] HospitalLymphocytes/100 WBC (Bld)5.2 %[facility] HospitalH (RBC) [Entitic mass]30.6 pg27 - 34 [facility] CenterMCHC (RBC) [Mass/Vol]34.1 g/dL32 - 36 g/dLProDayton Osteopathic HospitalMCV (RBC) [Entitic vol]90 fL80 - 100 [facility] SystemMonocytes (Bld) [#/Vol]0.8 10*3/uLOhioHealth Dublin Methodist HospitalMonocytes/100 WBC (Bld)4.5 %[facility] SystemNeutrophils (Bld) [#/Vol]16.3 10*3/uLHighOhioHealth Dublin Methodist HospitalNeutrophils/100 WBC (Bld) 89.9 %[facility] HospitalPlatelet mean volume (Bld) [Entitic vol]8.7 fL7 - 12 [facility] SystemPlatelets (Bld) [#/Vol]243 10*3/uLOhioHealth Dublin Methodist HospitalRBC (Bld) [#/Vol]3.44 10*6/uLLowOhioHealth Dublin Methodist HospitalWBC corrected for nucl RBC Auto (Bld) [#/Vol]18.1HWell[facility] Totalon 29-76-7669FM [Catalytic activity/Vol]11453 U/LHigh24 - 170 U/L [facility] [Catalytic activity/Vol]19091 U/LHigh24 - 170 U/L [facility] [Catalytic activity/Vol]on 44-86-9162Ncqjxninmqqfly and review of laboratory resultsAbnoBryn Mawr Rehabilitation HospitalInterpretation and review of laboratory resultsAbNew Lifecare Hospitals of PGH - SuburbanCPK28677 U/ZOskr45-223FufPtjnccGerman Hospital Comment on above:Performed By: #### CBCA, CMP, 66834-0, 40836-7, TSHR, 83323-5, 2777-1, 2639-3, 2157-6, 3024-7 #### [facility] ([id number]) [address] [place] [address], [address] [place], [place] [id number] U/TLkmm09-471SsmJdibziPremier HealthComment on above: Performed By: #### IJEOMA, CMP, 40931-5, 67458-5, TSHR, 62597-6, 2777-1, 2639-3, 2157-6, 3024-7 #### [facility] ([id number]) [address], [address] [place], [place] [address]NLUTBJQMCZLZR METABOLIC PANELon 40-03-9775Ylpkeue [Mass/Vol]3.8 g/dLNormal3.2-5.3[facility] HospitalComment on above:Performed By: #### IJEOMA, CMP, 67661-9, 64957-0, TSHR, 35751-6, 2777-1, 2639-3, 2157-6, 3024-7 #### [facility] ([id number]) [address], [address] [place], [place] [address]VCW [Catalytic activity/Vol]61 U/KPkpdjq50-369WvdUkeikb Toledo HospitalComment on above:Performed By: #### IJEOMA, CMP, 68602-7, 55018-8, TSHR, 61942-3, 2777-1, 2639-3, 2157-6, 3024-7 #### [facility] ([id number]) [address], [address] [place], [place] [address]RAG [Catalytic activity/Vol]1446 U/LHigh0-31PWVUMedicine Harrison Community HospitalComment on above:Performed By: #### CBCA, CMP, 98038-6, 50857-6, TSHR, 80008-5, 2777-1, 2639-3, 2157-6, 3024-7 #### [facility] ([id number]) [address], [address] [place], [place] [address]Dkfve gap [Moles/Vol]8 mmol/LNormal5-15ProDiley Ridge Medical Center [facility] Comment on above:Performed By: #### CBCA, CMP, 18950-0, 23131-4, TSHR, 22607-2, 2777-1, 2639-3, 2157-6, 3024-7 #### [facility] ([id number]) [address], [address] [place], [place] [address]NDE [Catalytic activity/Vol]783 U/LHigh0-41ProPremier HealthComment on above:Performed By: #### CBCA, CMP, 43324-9, 17420-5, TSHR, 13792-5, 2777-1, 2639-3, 2157-6, 3024-7 #### [facility] ([id number]) [address], [address] [place], [place] [address]Nakutquqy [Mass/Vol]0.5 mg/dLNormal0.3-1.2PWVUMedicine Harrison Community HospitalComment on above:Performed By: #### CBCA, CMP, 40862-5, 74950-4, TSHR, 64423-4, 2777-1, 2639-3, 2157-6, 3024-7 #### [facility] ([id number]) [address], [address] [place], [place] [address]Apjkxlg [Mass/Vol]8.4 mg/dLLow8.5-10.5PWVUMedicine Harrison Community Hospital Comment on above:Performed By: #### CBCA, CMP, 98095-9, 29113-2, TSHR, 35425-8, 2777-1, 2639-3, 2157-6, 3024-7 #### [facility] ([id number]) [address], [address] [place], [place] [address]Iyxpirvn [Moles/Vol]103 mmol/GDbdhin88-851WhrBpwuuy [place] HospitalComment on above:Performed By: #### CBCA, CMP, 22682-7, 71541-2, TSHR, 60241-9, 2777-1, 2639-3, 2157-6, 3024-7 #### [facility] ([id number]) [address], [address] [place], [place] [address]TX4 [Moles/Vol]31 mmol/ECpiqtr80-97HueXllcrwWVUMedicine Harrison Community Hospital Comment on above:Performed By: #### IJEOMA, CMP, 94029-1, 52129-5, TSHR, 83399-0, 2777-1, 2639-3, 2156-6, 7 #### [facility] ([id number]) [address], [address] [place], [place] [address]Jtjlkzdqsu [Mass/Vol]2.00 mg/dLHigh0.40-1.00ProPremier HealthComment on above:Result Comment: METHOD TRACEABLE TO IDMS STANDARD Performed By: #### IJEOMA, CMP, 32817-1, 61799-6, TSHR, 31811-8, 7-1, 2638-3, 2156-6, 3024-04 #### [facility] ([id number]) [address], [address] [place], [place] [address]MNG/1.73 sq M.predicted among non-blacks MDRD (S/P/Bld) [Vol rate/Area]35 mL/min/{1.73_m2}Low>59ProPremier HealthComment on above: Result Comment: Reported eGFR is based on the CKD-EPI 2020 equation that does not use a race coefficient.Performed By: #### ANISHA, CMP, 38684-6, 06012-5, TSHR, 16420-4, 2777-1, 9-3, 2156-6, 3023-7 #### [facility] ([id number]) [address], [address] [place], [place] [address]Sizkbuj [Mass/Vol]137 mg/sKMadr08-17EwzUotdzkGerman Hospital Comment on above:Performed By: #### CBCA, CMP, 42872-6, 17239-6, TSHR, 52386-9, 2777-1, 2639-3, 2157-6, 3024-7 #### [facility] ([id number]) [address], [address] [place], [place] [address]Asbcbjmmv [Moles/Vol]4.1 mmol/LNormal3.5-5.0ProDiley Ridge Medical Center HospitalComment on above:Performed By: #### CBCA, CMP, 94223-4, 40615-5, TSHR, 36829-5, 2777-1, 2639-3, 2157-6, 3024-7 #### [facility] ([id number]) [address], [address] [place], [place] [address]Iyentou [Mass/Vol]6.2 g/dLNormal6.0-8.0ProPremier Health Comment on above:Performed By: #### CBCA, CMP, 67592-1, 99739-9, TSHR, 51898-0, 2777-1, 2639-3, 2157-6, 3024-7 #### [facility] ([id number]) [address], [address] [place], [place] [address]Gymkue [Moles/Vol]142 mmol/SWosvbw147-525VwjGpzuui [place]edo HospitalComment on above:Performed By: #### CBCA, CMP, 84216-1, 80724-8, TSHR, 78546-0, 7-1, 2639-3, 2157-6, 3024-7 #### [facility] ([id number]) [address], [address] [place], [place] [address]Vkeb nitrogen [Mass/Vol]29 mg/dLHigh5-23ProPremier HealthComment on above:Performed By: #### CBCA, CMP, 19373-3, 40684-7, TSHR, 82374-9, 2777-1, 2639-3, 2157-6, 3024-7 #### [facility] ([id number]) [address], [address] [place], [place] [address]Kdvoafhposuas metabolic panelon 25-03-1305Idergvx [Mass/Vol]3.8 g/dL3.2 - 5.3 g/dLProMedica Health SystemALP [Catalytic activity/Vol]61 U/L39 - 130 U/LProMedica Health SystemALT No additional P-5'-P [Catalytic activity/Vol] 1446 U/LHigh0 - 31 U/LProMedhartselle medical center Health SystemAnion gap [Moles/Vol]8 mmol/L5 - 15 mmol/LProMedica Health SystemAST [Catalytic activity/Vol]783 U/LHigh0 - 41 U/L ProMLake City Hospital and Clinic SystemBilirubin [Mass/Vol]0.5 mg/dL0.3 - 1.2 mg/dLProMedica Health SystemCalcium [Mass/Vol]8.4 mg/dLLow8.5 - 10.5 mg/dLProAultman Hospital SystemChloride [Moles/Vol]103 mmol/L98 - 109 mmol/LProMedica Health SystemCO2 [Moles/Vol]31 mmol/L22 - 32 mmol/[facility] SystemCreatinine [Mass/Vol]2 mg/dLHigh0.40 - 1.00 mg/dLProAultman Hospital SystemeGFR (CKD-EPI)non-race ufholyozk07Jeu- PINSelect [facility] Specialty [facility] SystemGlucose [Mass/Vol]137 mg/eFXpmo07 - 99 mg/dLDetwiler Memorial Hospital SystemInterpretation and review of laboratory results AbnormalProAultman Hospital SystemPotassium [Moles/Vol]4.1 mmol/L3.5 - 5.0 mmol/L ProMandalusia health Health SystemProtein [Mass/Vol]6.2 g/dL6.0 - 8.0 g/dLDetwiler Memorial Hospital SystemSodium [Moles/Vol]142 mmol/L134 - 146 mmol/LPrCentennial Peaks Hospital Health SystemUrea nitrogen [Mass/Vol]29 mg/dLHigh5 - 23 mg/dLDetwiler Memorial Hospital SystemENA Panelon 49-85-4513Huqhlladiij Ql (U)[facility] CenterRibonucleoprotein extractable nuclear IgG Qn (S)Ballad HealthCL-70 extractable nuclear Ab Ql (S)Ballad Healthjogrens syndrome-A extractable nuclear Ab Qn (S)Ballad Healthjogrens syndrome-B extractable nuclear IgG Qn (S)Ballad Healthmith extractable nuclear IgG Qn (S)[facility] CenterFREE LIGHT CHAINSon 29-41-8724AYNX WILFREDO/LAMBD RATIO 0.83Npbiaf6.26-1.65ProPremier HealthComment on above:Performed By: #### CBCA, CMP, 01865-3, 75922-8, TSHR, 63314-0, 2777-1, 2639-3, 2157-6, 3024-7 #### [facility] ([id number]) [address], [address] [place], [place] [address]FNUG KAPPA LT CHAINS0.76 mg/dLNormal0.33-1.94ProPremier HealthComment on above:Performed By: #### ANISHA, [facility], 53640-7, 55372-1, TSHR, 67500-9, 2777-1, 2639-3, 2157-6, 3024-7 #### [facility] ([id number]) [address], [address] [place], [place] [address]CBKU LAMBDA LT CHAINS0.83 mg/dLNormal0.57-2.63ProPremier HealthComment on above:Performed By: #### ANISHA, CMP, 12239-8, 14138-1, TSHR, 01227-1, 2777-1, 2639-3, 2157-6, 3024-7 #### [facility] ([id number]) [address], [address] [place], [place] [address]Whpq light chainson 53-80-7872Xflhanzjbjifsd light chains.kappa.free (S) [Mass/Vol]0.76 mg/dL0.33 - 1.94 mg/dLProDayton Osteopathic HospitalImmunoglobulin light chains.kappa.free/Immunoglobulin light chains.lambda (S) [Mass ratio]0.920.26 - 1.65ProDayton Osteopathic HospitalImmunoglobulin light chains.lambda [Mass/Vol]0.83 mg/dL0.57 - 2.63 mg/dLSelect Specialty Hospital - ErieGlomerular basement membrane IgG ABon 11-07-2024 Glomerular basement membrane IgG Qn (S)NINTexas County Memorial HospitalGlomerular basement membrane IgG Qn (S)on 12-11-9081NxdVouitmOhioHealth Dublin Methodist HospitalGlucose Glucometer (BldC) [Mass/Vol]on 01-91-5397Rupkgjx [Mass/Vol]107 mg/hOTfaj07 - 99 mg/dLOhioHealth Dublin Methodist HospitalInterpretation and review of laboratory results AbnormalBarnes-Kasson County HospitalGlucose [Mass/Vol]90 mg/dL 65 - 99 mg/dLBarnes-Kasson County HospitalGlucose [Mass/Vol]107 mg/pSQbwh59-92JrgJjvzxqGerman HospitalGlucose [Mass/Vol]90 mg/uCCiaapp65-41 German HospitalGlucose [Mass/Vol]138 mg/sWHbcb25 - 99 mg/dLOhioHealth Dublin Methodist HospitalInterpretation and review of laboratory resultsAbnormalBarnes-Kasson County HospitalGlucose [Mass/Vol]138 mg/cKSqnd87-09 German HospitalIonized magnesiumon 23-25-3483Vizzeqflo Ionized ISE (Bld) [Moles/Vol]0.74 mmol/L0.45 - 0.74 mmol/LPrThe Surgical Hospital at SouthwoodsMAGNESIUMon 93-96-7898Audrjjizo [Mass/Vol]1.9 mg/dLNormal1.8-2.6German [facility] Comment on above:Performed By: #### CBCA, CMP, 03791-2, 88199-5, TSHR, 24861-2, 2777-1, 2639-3, 2157-6, 3024-7 #### [facility] ([id number]) [address] [place] [address], [address] [place], [place] [address]Njatxktbcgq 82-85-1609Fkwtztslp [Mass/Vol]1.9 mg/dL1.8 - 2.6 mg/dLProMedica Health SystemMagnesium Ionized ISE (Bld) [Moles/Vol]on 11-07-2024 ProMLake City Hospital and Clinic SystemMagnesium [Moles/Vol]0.74 mmol/LNormal0.45-0.74ProPremier HealthComment on above:Result Comment: NEW REFERENCE RANGEPerformed By: #### CBCA, CMP, 62319-0, 99425-8, TSHR, 37096-8, 2777-1, 2639-3, 2157-6, 3024-7 #### [facility] ([id number]) [address], [address] [place], [place] [address]Tezncpzvf [Mass/Vol]on 11-61-6747Qkvnzlesmtbovz and review of laboratory resultsAbnormalProDayton Osteopathic HospitalProCorey HospitalERUM AHEAWRXTA6918.2 ng/bYVlqr70.3-65.8ProPremier HealthComment on above: Performed By: #### CBCA, CMP, 10075-3, 45420-7, TSHR, 40722-5, 2777-1, 2639-3, 2157-6, 3024-7 #### [facility] ([id number]) [address], [address] [place], [place] [address]Mfbmnvmmg, serumon 03-12-4846Ifwqofoaz [Mass/Vol]2484.2 ng/mL High14.3 - 65.8 ng/mLOhioHealth Dublin Methodist HospitalNeutrophil cytoplasmic Ab panel IF (S)on 49-36-6497f-ANCANegativeNormalNegativeGerman HospitalComment on above:Performed By: #### CBCA, CMP, 80688-3, 63411-4, TSHR, 53662-5, 2777-1, 2639-3, 2157-6, 3024-7 #### [facility] ([id number]) [address], [address] [place], [place] [address]n-NQLHVroiqymjTpifjzFauegieqAovHvodnk [place]edo HospitalComment on above:Result Comment: NOTE Negative for cANCA and pANCA patterns by immunofluorescence. ADDITIONAL INFORMATION This test was developed and its performance characteristics determined by [facility] in a manner consistent with CLIA requirements. This test has not been cleared or approved by the U.S. Food and Drug Administration. Test Performed by: [facility] [address] [place] [address] Compliance Nurse: Ulysses Juarez Ph.D.; CLIA# [id number] By: #### CBCA, CMP, 77582-3, 96156-1, TSHR, 22040-9, 2777-1, 2639-3, 2157-6, 3024-7 #### [facility] ([id number]) [address], [address] [place], [place] [address]Zv Panel Informationon 24-02-7120CftBfwawqSelect Specialty Hospital - EriePHOSPHORUSon 42-18-9956Dyksoatmd [Mass/Vol]3.1 mg/dL Normal2.4-4.9German HospitalComment on above:Performed By: #### CBCA, CMP, 94852-3, 95756-7, TSHR, 53229-7, 2777-1, 2639-3, 2157-6, 3024-7 #### [facility] ([id number]) [address], [address] [place], [place] [address]FCYMLMZYPbx 51-31-7524Immulidew [Moles/Vol]3.1 mmol/LLow3.5-5.0 German HospitalComment on above:Performed By: #### CBCA, CMP, 91246-5, 23495-8, TSHR, 75037-5, 2777-1, 2639-3, 2157-6, 3024-7 #### [facility] ([id number]) [address], [address] [place], [place] [address]Gfxdmvfds [Moles/Vol]3.5 mmol/LNormal3.5-5.0German HospitalComment on above:Performed By: #### CBCA, CMP, 10483-8, 79067-4, TSHR, 37608-3, 2777-1, 2639-3, 2157-6, 3024-7 #### [facility] ([id number]) [address], [address] [place], [place] [address]Jmmuhcmdc [Moles/Vol]3.8 mmol/LNormal3.5-5.0ProPremier HealthComment on above:Performed By: #### CBCA, CMP, 93920-4, 22141-7, TSHR, 49670-1, 2777-1, 2639-3, 2157-6, 3024-7 #### [facility] ([id number]) [address], [address] [place], [place] [address]Shqcnqwdsvpt 56-93-1439Twcdobnkb [Mass/Vol]3.1 mg/dL2.4 - 4.9 mg/dLDetwiler Memorial Hospital SystemPotassiumon 33-34-8709Yqbmjuwas [Moles/Vol]3.1 mmol/LLow3.5 - 5.0 mmol/LProMedica Health SystemPotassium [Moles/Vol]3.5 mmol/L 3.5 - 5.0 mmol/LProMedica Health SystemPotassium [Moles/Vol]3.8 mmol/L3.5 - 5.0 mmol/LProMedica Health SystemPotassium [Moles/Vol]on 28-33-3891Suetacokastgzs and review of laboratory resultsAbnormalProMedica Health SystemProMedica Health SystemProMediKings County Hospital CenterProRegional Medical Center Of Jacksonville Health SystemProtein electrophoresis, serumon 66-32-1396Adjhzwm [Mass/Vol]3.4 g/dL3.4 - 5.3 g/dLDetwiler Memorial Hospital SystemAlpha 1 globulin Elph [Mass/Vol]0.4 g/dL0.1 - 0.4 g/dLDetwiler Memorial Hospital SystemAlpha 2 globulin Elph [Mass/Vol]0.8 g/dL0.4 - 1.1 g/dLProMedica Health SystemBeta globulin Elph [Mass/Vol]0.7 g/dL0.5 - 1.2 g/dLOhioHealth Dublin Methodist Hospital Gamma globulin Elph [Mass/Vol]0.6 g/dL0.5 - 1.6 g/dLOhioHealth Dublin Methodist Hospital Interpretation and review of laboratory resultsAbnormalOhioHealth Dublin Methodist Hospital Pathologist interpretation (Bld) [Interp]Unremarkable protein distribution, no monoclonal bands.Detwiler Memorial Hospital SystemProtein [Mass/Vol]5.9 g/dLLow6.0 - 8.0 g/dLBarnes-Kasson County HospitalAlbumin [Mass/Vol]REQUEST CREDITED3.4 - 5.3 g/dLOhioHealth Dublin Methodist HospitalAlpha 1 globulin Elph [Mass/Vol] REQUEST CREDITED0.1 - 0.4 g/dLOhioHealth Dublin Methodist HospitalAlpha 2 globulin Elph [Mass/Vol]REQUEST CREDITED0.4 - 1.1 g/dLOhioHealth Dublin Methodist HospitalBeta globulin Elph [Mass/Vol]REQUEST CREDITED0.5 - 1.2 g/dLOhioHealth Dublin Methodist HospitalGamma globulin Elph [Mass/Vol]REQUEST CREDITED0.5 - 1.6 g/dLOhioHealth Dublin Methodist Hospital Pathologist interpretation (Bld) [Interp]REQUEST CREDITEDOhioHealth Dublin Methodist Hospital Protein [Mass/Vol]6.3 g/dL6.0 - 8.0 g/dLSSM RehabERUM PROTEIN ELECTROPHORESISon 98-16-2804Hmzwtfs [Mass/Vol]3.4 g/dLNormal 3.4-5.3PIberia Medical Centerica [facility] Rehabilitation HospitalComment on above:Performed By: #### SYED RAPHAEL, 14737-8, 15156-0, TSHR, 47531-7, 2777-1, 2639-3, 2157-6, 3024-7 #### [facility] ([id number]) [address], [address] [place], [place] [address]VHPKU 1 GLOBULIN0.4 g/dLNormal0.1-0.4[facility] Comment on above:Performed By: #### SYED RAPHAEL, 81370-2, 47410-7, TSHR, 40602-3, 2777-1, 2639-3, 2157-6, 3024-7 #### [facility] ([id number]) [address], [address] [place], [place] [address]LMJDT 2 GLOBULIN0.8 g/dLNormal0.4-1.1PWVUMedicine Harrison Community Hospital Comment on above:Performed By: #### CBCA, CMP, 78884-0, 48624-7, TSHR, 37424-8, 2777-1, 2639-3, 2157-6, 3024-7 #### [facility] ([id number]) [address], [address] [place], [place] [address]VOHC GLOBULIN0.7 g/dLNormal0.5-1.2PWVUMedicine Harrison Community Hospital Comment on above:Performed By: #### CBCA, CMP, 78935-9, 48246-7, TSHR, 80355-8, 2777-1, 2639-3, 2157-6, 3024-7 #### [facility] ([id number]) [address], [address] [place] [address]FLVHP GLOBULIN0.6 g/dLNormal0.5-1.6[facility] Comment on above:Performed By: #### CBCA, CMP, 91671-5, 06881-9, TSHR, 58332-8, 2777-1, 2639-3, 2157-6, 3024-7 #### [facility] ([id number]) [address], [address] [place], [place] [address]BHTF. ELECTROPHORESIS INTERPUnremarkable protein distribution, no monoclonal bands.NormalProPremier HealthComment on above:Performed By: #### CBCA, CMP, 25286-9, 70123-9, TSHR, 03586-3, 2777-1, 2639-3, 2157-6, 3024-7 #### [facility] ([id number]) [address], [address] [place], [place] [address]Ztpmvvy [Mass/Vol]5.9 g/dLLow6.0-8.0ProPremier Health Comment on above:Performed By: #### CBCA, CMP, 87701-4, 66278-5, TSHR, 67164-5, 2777-1, 2639-3, 2157-6, 3024-7 #### [facility] ([id number]) [address] [facility], [address] [address]Bghbpqhm [Catalytic activity/Vol]on 74-11-4235PSCQJDHA445.0 U/L High1.2-7.6ProPremier HealthComment on above:Result Comment: NOTE REFERENCE INTERVAL: Aldolase Access complete set of age- and/or gender-specific reference intervals for this test in the [employer] Laboratory Test Directory (T[employer]pree). Performed By: [facility] [address] [place] [address] Commercial [employer] Assistant: Jose Juan Rasheed MD, PhD CLIA Number: [id number] By: #### CBCA, CMP, 23721-6, 54612-3, TSHR, 48651-7, 2777-1, 2639-3, 2157-6, 302- #### [facility] ([id number]) [address] [place] [address] DIFFICILE BY PCRon 11-06-2024. difficile toxin genes JACKSON+probe Ql (Stl)TOXIGENIC C DIFF Negative (qualifier value) 027 NAP1 Negative (qualifier value)NormalPRNEGProPremier HealthComment on above: Performed By: #### CBCA, CMP, 53949-8, 33719-3, TSHR, 04601-9, 2777-1, 2639-3, 2157-6, 3024-7 #### [facility] ([id number]) [address] [place] [address], [address] [address]I-jhzxkyer proteinon 09-39-9740XDG [Mass/Vol]5.1 mg/dLHigh0.000 - 0.744 mg/dLOhioHealth Dublin Methodist HospitalC. difficile toxin genes JACKSON+probe Ql (Stl) on 91-27-3203NlfTewfezDayton Osteopathic HospitalC3 complementon 00-46-8214Taecirachf C3 [Mass/Vol]104 mg/dL86 - 184 mg/dLOhioHealth Dublin Methodist HospitalC4 complementon 99-73-8288Gohaiznqor C4 [Mass/Vol]35 mg/dL16 - 47 mg/dLOhioHealth Dublin Methodist Hospital CBC AND AUTO DIFFon 47-64-4167CGGVMBHH BASOPHIL0.0 X10E9/LNormal0.0-0.2ProMedTrinity Health System West CampusComment on above:Performed By: #### CBCA, CMP, 06754-1, 07826-4, TSHR, 21462-9, 2777-1, 2639-3, 2157-6, 3024-7 #### [facility] ([id number]) [address] [facility], [address] [place], [place] [address]CLGSADMO AMHJLPFMUV97.9 X10E9/LHigh1.5-6.6ProPremier HealthComment on above:Performed By: #### CBCA, CMP, 97888-8, 99269-9, TSHR, 39297-1, 2777-1, 2639-3, 2157-6, 3024-7 #### [facility] ([id number]) [address] [facility], [address] [place], [place] [address]Cwfmdzixzos (Bld) [#/Vol]0.0 10*3/uLNormal0.0-0.4German HospitalComment on above:Performed By: #### CBCA, CMP, 48389-1, 28080-8, TSHR, 98163-5, 2777-1, 2639-3, 2157-6, 3024-7 #### [facility] ([id number]) [address] [address], [address] [place], [place] [address]Aqnsftvyimz/100 WBC (Bld)0.0 %NormalProPremier Health Comment on above:Performed By: #### CBCA, CMP, 27677-8, 96321-6, TSHR, 99879-2, 2777-1, 2639-3, 2157-6, 3024-7 #### [facility] ([id number]) [address], [address] [place], [place] [address]Umszioosrph/100 WBC (Bld)3.0 %NormalGerman Hospital Comment on above:Performed By: #### CBCA, CMP, 24880-4, 73726-2, TSHR, 37450-5, 2777-1, 2639-3, 2157-6, 3024-7 #### [facility] ([id number]) [address], [address] [place], [place] [address]Keevsqlei (Bld) [#/Vol]1.0 10*3/uLHigh0-0.9German HospitalComment on above:Performed By: #### CBCA, CMP, 21068-7, 61576-1, TSHR, 44221-8, 2777-1, 2639-3, 2157-6, 3024-7 #### [facility] ([id number]) [address], [address] [place], [place] [address]MHE COUNT3.42 X10E12/LLow3.80-5.20[facility] Comment on above:Performed By: #### CBCA, CMP, 62218-2, 60917-5, TSHR, 14755-9, 2777-1, 2639-3, 2157-6, 3024-7 #### [facility] ([id number]) [address], [address] [place], [place] [address]YWP (Bld) [#/Vol]21.6 10*3/uLHigh4.0-11.0German HospitalComment on above:Performed By: #### CBCA, CMP, 35641-0, 99614-4, TSHR, 13151-8, 2777-1, 2639-3, 2157-6, 3024-7 #### [facility] ([id number]) [address], [address] [place], [place] [address]Iutbpiyib/100 WBC (Bld)0.2 %NormalDetwiler Memorial Hospital SystemComment on above:Performed By: #### CBCA, CMP, 37964-6, 51325-5, TSHR, 13961-9, 2777-1, 2639-3, 2157-6, 3024-7 #### [facility] ([id number]) [address], [address] [place], [place] [address]Qwxkzkdrhaj distribution width (RBC) [Ratio]13.3 %Normal 11.5-15.0Detwiler Memorial Hospital SystemComment on above:Performed By: #### CBCA, CMP, 78132-6, 32149-9, TSHR, 96630-3, 2777-1, 2639-3, 2157-6, 3024-7 #### [facility] ([id number]) [address], [address] [place], [place] [address]Rfmsopjhtm (Bld) [Volume fraction]30.3 %Eqp29-91IgnSidasw Health SystemComment on above:Performed By: #### CBCA, CMP, 02626-3, 80328-6, TSHR, 32525-3, 2777-1, 2639-3, 2157-6, 3024-7 #### [facility] ([id number]) [address], [address] [place], [place] [address]Hrkuhxzvkg (Bld) [Mass/Vol]10.4 g/dLLow11.7-15.5PCleveland Clinic Union Hospital SystemComment on above:Performed By: #### CBCA, CMP, 06040-9, 29039-7, TSHR, 67073-2, 2777-1, 2639-3, 2157-6, 3024-7 #### [facility] ([id number]) [address], [address] [place], [place] [address]Kmorawzkdek (Bld) [#/Vol]0.7 10*3/uLLow1.0-3.5PUniversity Hospitals Elyria Medical CenterComment on above:Performed By: #### CBCA, CMP, 76402-6, 96304-3, TSHR, 18325-4, 2777-1, 2639-3, 2157-6, 3024-7 #### [facility] ([id number]) [address], [address] [place], [place] [address]ABT (RBC) [Entitic mass]30.5 hvFhuqld09-85MhiJwqvej Health SystemComment on above:Performed By: #### CBCA, CMP, 51880-7, 42840-6, TSHR, 66492-1, 2777-1, 2639-3, 2157-6, 3024-7 #### [facility] ([id number]) [address], [address] [place], [place] [address]OOGZ (RBC) [Mass/Vol]34.4 g/jUCyliwa50-73VphKsotkx Health System Comment on above:Performed By: #### CBCA, CMP, 98841-2, 93889-1, TSHR, 31522-8, 2777-1, 2639-3, 2157-6, 3024-7 #### [facility] ([id number]) [address], [address] [place], [place] [address]PJA (RBC) [Entitic vol]89 pUGkbqbs05-612OtsVqnnhc Health System Comment on above:Performed By: #### CBCA, CMP, 02009-2, 35476-1, TSHR, 86656-5, 2777-1, 2639-3, 2157-6, 3024-7 #### [facility] ([id number]) [address], [address] [place], [place] [address]Jmoqcdhcu/100 WBC (Bld)4.6 %NormalProAultman Hospital SystemComment on above:Performed By: #### CBCA, CMP, 34871-3, 78099-0, TSHR, 48610-4, 2777-1, 2639-3, 2157-6, 3024-7 #### [facility] ([id number]) [address], [address] [place], [place] [address]Afitspspttb/100 WBC (Bld)92.2 %NormalDetwiler Memorial Hospital System Comment on above:Performed By: #### CBCA, CMP, 35904-9, 38668-5, TSHR, 58693-4, 2777-1, 2639-3, 2157-6, 3024-7 #### [facility] ([id number]) [address] [place], [place] [address]Rgwzyoab mean volume (Bld) [Entitic vol]7.9 fLNormal7-12 [facility] SystemComment on above:Performed By: #### CBCA, CMP, 59486-2, 45165-9, TSHR, 76440-1, 2777-1, 2639-3, 2157-6, 3024-7 #### [facility] ([id number]) [address] [place], [place] [address]Rcdevnjsf (Bld) [#/Vol]242 10*3/dRTbgaxt914-851NsiGjhcjl Health SystemComment on above:Performed By: #### CBCA, CMP, 84600-2, 35675-2, TSHR, 12100-8, 2777-1, 2639-3, 2157-6, 3024-7 #### [facility] ([id number]) [address], [address] [place], [place] [address]MJR auto differentialon 80-58-5462Zwgfncznm (Bld) [#/Vol]0 10*3/uLProMedica Health SystemEosinophils (Bld) [#/Vol]0 10*3/uLProMedica Health SystemEosinophils/100 WBC (Bld)0 %[facility] Health SystemInterpretation and review of laboratory resultsAbnoSampson Regional Medical CenterLymphocytes/100 WBC (Bld)3 %[facility] HospitalMonocytes (Bld) [#/Vol]1 10*3/uLWarren Memorial HospitalNeutrophils (Bld) [#/Vol]19.9 10*3/uLWarren Memorial HospitalRBC (Bld) [#/Vol]3.42 10*6/uLWexner Medical CenterWBC corrected for nucl RBC Auto (Bld) [#/Vol]21.6HighDelaware County Memorial Hospital Total on 71-33-8849WZ [Catalytic activity/Vol]56462 U/LHigh24 - 170 U/[facility] [Catalytic activity/Vol]on 93-76-3699Ogztmqnkcmwvsp and review of laboratory resultsAbnoBryn Mawr Rehabilitation Hospital COMPREHENSIVE METABOLIC PANELon 85-09-5046IWT [Catalytic activity/Vol]1426 U/L [facility]088 Greene StreetComment on above:Performed By: #### CBCA, CMP, 73642-1, 88207-1, TSHR, 51331-3, 2777-1, 2639-3, 2157-6, 3024-7 #### [facility] ([id number]) [address], [address] [place], [place] [address]HRO/1.73 sq M.predicted among non-blacks MDRD (S/P/Bld) [Vol rate/Area]29 mL/min/{1.73_m2}Low>59German HospitalComment on above: Result Comment: Reported eGFR is based on the CKD-EPI 2020 equation that does not use a race coefficient.Performed By: #### CBCA, CMP, 26952-5, 68143-1, TSHR, 40965-7, 2777-1, 2639-3, 2157-6, 3024-7 #### [facility] ([id number]) [address], [address] [place], [place] [address]Dhuymkq [Mass/Vol]3.7 g/dLNormal3.2-5.3PUniversity Hospitals Elyria [facility] Comment on above:Performed By: #### CBCA, CMP, 69540-3, 60699-6, TSHR, 09774-3, 2777-1, 2639-3, 2157-6, 3024-7 #### [facility] ([id number]) [address], [address] [place], [place] [address]PEL [Catalytic activity/Vol]63 U/YLzhjka64-402YwwWkxkppOhioHealth Dublin Methodist HospitalComment on above:Performed By: #### CBCA, CMP, 34468-7, 60058-2, TSHR, 97719-7, 2777-1, 2639-3, 2157-6, 3024-7 #### [facility] ([id number]) [address], [address] [place], [place] [address]Vandu gap [Moles/Vol]12 mmol/LNormal5-15[facility] Comment on above:Performed By: #### CBCA, CMP, 18745-9, 19430-8, TSHR, 28916-3, 2777-1, 2639-3, 2157-6, 3024-7 #### [facility] ([id number]) [address], [address] [place], [place] [address]CWH [Catalytic activity/Vol]1597 U/LHigh0-41Detwiler Memorial Hospital SystemComment on above:Performed By: #### CBCA, CMP, 64538-8, 52367-6, TSHR, 18649-1, 2777-1, 2639-3, 2157-6, 3024-7 #### [facility] ([id number]) [address], [address] [place], [place] [address]Vouwnxllf [Mass/Vol]0.4 mg/dLNormal0.3-1.2PCleveland Clinic Union Hospital SystemComment on above:Performed By: #### CBCA, CMP, 93470-4, 89133-3, TSHR, 32086-3, 2777-1, 2639-3, 2157-6, 3024-7 #### [facility] ([id number]) [address], [address] [place] [address]Hkguoeo [Mass/Vol]7.7 mg/dLLow8.5-10.5PUniversity Hospitals Elyria Medical Center Comment on above:Performed By: #### CBCA, CMP, 21889-2, 15881-1, TSHR, 63893-1, 2777-1, 2639-3, 2157-6, 3024-7 #### [facility] ([id number]) [address], [address] [place], [place] [address]Qbanbagz [Moles/Vol]106 mmol/NLgzazh57-988OdbCjkalp Health SystemComment on above:Performed By: #### CBCA, CMP, 45987-3, 07647-5, TSHR, 86836-3, 2777-1, 2639-3, 2157-6, 3024-7 #### [facility] ([id number]) [address], [address] [place] [address]AF6 [Moles/Vol]22 mmol/VWogbwv36-46AqoJynoeyUniversity Hospitals Elyria Medical Center Comment on above:Performed By: #### CBCA, CMP, 54485-6, 21857-0, TSHR, 12707-1, 2777-1, 2639-3, 2157-6, 3024-7 #### [facility] ([id number]) [address], [address] [place], [place] [address]Tssvkfjzvf [Mass/Vol]2.33 mg/dLHigh0.40-1.00Detwiler Memorial Hospital SystemComment on above:Result Comment: METHOD TRACEABLE TO IDMS STANDARD Performed By: #### CBCA, CMP, 56658-2, 89039-9, TSHR, 29535-5, 2777-1, 2639-3, 2157-6, 3024-7 #### [facility] ([id number]) [address], [address] [place] [address]Eslmwlo [Mass/Vol]155 mg/uPUuol57-81HuyCrhuueOhioHealth Dublin Methodist Hospital Comment on above:Performed By: #### SYED RAPHAEL, 35881-8, 27172-5, TSHR, 49845-4, 2777-1, 2639-3, 2157-6, 3024-7 #### [facility] ([id number]) [address], [address] [place] [address]Abfrsqseg [Moles/Vol]4.1 mmol/LNormal3.5-5.0Ohio[facility] Dublin Methodist HospitalComment on above:Performed By: #### SYED RAPHAEL, 37816-1, 59945-5, TSHR, 65808-6, 2777-1, 2639-3, 2157-6, 3024-7 #### [facility] ([id number]) [address], [address] [place], [place] [address]Fnznqkt [Mass/Vol]6.3 g/dLNormal6.0-8.0[facility] Comment on above:Performed By: #### SYED RAPHAEL, 32818-7, 00127-4, TSHR, 89976-4, 2777-1, 2639-3, 2157-6, 3024-7 #### [facility] ([id number]) [address], [address] [place], [place] [address]Hyaxuh [Moles/Vol]140 mmol/XXmmujy824-378WmxCpnssc Health System Comment on above:Performed By: #### IJEOMA, SYED, 44141-9, 56409-6, TSHR, 23914-1, 2777-1, 2639-3, 2157-6, 3024-7 #### [facility] ([id number]) [address], [address] [place], [place] [address]Xjqf nitrogen [Mass/Vol]36 mg/dLHigh5-23[facility] Comment on above:Performed By: #### CBCA, CMP, 93344-7, 93521-8, TSHR, 67744-0, 2777-1, 2639-3, 2157-6, 3024-7 #### [facility] ([id number]) [address] [place] [address], [address] [place], [place] [address]VKR [Mass/Vol]on 13-85-4573Dktzrdocmrxcgt and review of laboratory resultsAbnoBryn Mawr Rehabilitation HospitalC REACTIVE PROTEIN5.1 mg/dLHigh0.000-0.744PWVUMedicine Harrison Community HospitalComment on above:Performed By: #### CBCA, CMP, 35084-6, 57828-6, TSHR, 18700-4, 2777-1, 2639-3, 2157-6, 3024-7 #### [facility] ([id number]) [address] [place] [address], [address] [place], [place] [address]Bbqlrta.ionized (Bld) [Mass/Vol]on 47-60-2724BjoOnfujh Health SystemIONIZED CALCIUM4.8 mg/dLNormal4.5-5.3PWVUMedicine Harrison Community HospitalComment on above:Performed By: #### CBCA, CMP, 62655-7, 61614-7, TSHR, 61471-6, 2777-1, 2639-3, 2157-6, 3024-7 #### [facility] ([id number]) [address] [place] [address], [address] [place], [place] [address]Futwqfzcjbuqbb and review of laboratory resultsAbnoAdventHealth Durand SystemIONIZED CALCIUM4.3 mg/dLLow4.5-5.3PWVUMedicine Harrison Community HospitalComment on above:Performed By: #### CBCA, CMP, 42324-1, 23380-2, TSHR, 62320-6, 2777-1, 2639-3, 2157-6, 3024-7 #### [facility] ([id number]) [address] [place] [address], [address] [place], [place] [address]Qrfbrbqtbx C3 [Mass/Vol]on 96-83-9795HGJEQAYRZC C3104 mg/dL Mwecnq59-845AtqUxpcjzPremier HealthComment on above:Performed By: #### CBCA, CMP, 17471-3, 61552-8, TSHR, 52943-4, 2777-1, 2639-3, 2157-6, 3024-7 #### [facility] ([id number]) [address] [place] [address], [address] [place], [place] [address]Zolgheovtn C4 [Mass/Vol]on 87-58-4539ROAXTETQWZ C435 mg/dLNormal 16-47ProPremier HealthComment on above:Performed By: #### CBCA, CMP, 74509-4, 64426-4, TSHR, 02222-5, 2777-1, 2639-3, 2157-6, 3024-7 #### [facility] ([id number]) [address] [place] [address], [address] [place], [place] [address]Igrxejirfdxfe metabolic panelon 30-23-3600UAM No additional P-5'-P [Catalytic activity/Vol]1426 U/LHigh0 - 31 U/[facility]'s HospitaleGFR (CKD-EPI)non-race mmbszrowv05Awb- [facility] WilliamsburgInterpretation and review of laboratory resultsAbnormFlower HospitalCreatinine (U) [Mass/Vol]on 48-59-9120FrvBajemmOhioHealth Dublin Methodist HospitalURINE CREATININE,RDM36.52 mg/dL NormalGerman HospitalComment on above:Performed By: #### CBCA, CMP, 29046-3, 21391-3, TSHR, 14755-0, 2777-1, 2639-3, 2157-6, 3024-7 #### [facility] ([id number]) [address] [place] [address], [address] [place], [place] [address]OVDQSBLOQTE IN PROCESS EEG TESTINGOrdered By: Documentation Systemgenerated on 31-93-9250DovFobmhcOhioHealth Dublin Methodist Hospital Work Phone: ENA PANELon 40-53-0693ZWPU-SMITH AB IGG<0.2Normal<1.0 ProMedica Hassan HospitalComment on above:Performed By: #### CBCA, CMP, 74075-1, 20200-8, TSHR, 83234-2, 2777-1, 2639-3, 2157-6, 3024-7 #### [facility] ([id number]) [address], [address] [place], [place] [address]AM2 ANTIBODY<0.2Normal<1.0ProMedica Hassan HospitalComment on above:Performed By: #### CBCA, CMP, 36811-3, 99400-0, TSHR, 89566-5, 2777-1, 2639-3, 2157-6, 3024-7 #### [facility] ([id number]) [address], [address] [place], [place] [address]FUG ANTIBODY IGG<0.2Normal<1.0ProMedica Hassan HospitalComment on above:Performed By: #### CBCA, CMP, 98358-3, 11922-2, TSHR, 97341-2, 2777-1, 2639-3, 2157-6, 3024-7 #### [facility] ([id number]) [address], [address] [place], [place] [address]MGN 70 ANTIBODY<0.2Normal<1.0ProMedica Hassan HospitalComment on above:Performed By: #### CBCA, CMP, 83889-9, 48003-2, TSHR, 59509-4, 2777-1, 2639-3, 2157-6, 3024-7 #### [facility] ([id number]) [address], [address] [place], [place] [address]KMJ ANTIBODY<0.2Normal<1.0ProMedica Hassan HospitalComment on above:Performed By: #### CBCA, CMP, 58261-6, 20936-3, TSHR, 14147-1, 2777-1, 2639-3, 2157-6, 3024-7 #### [facility] ([id number]) [address], [address] [place], [place] [address]SKW ANTIBODY<0.2Normal<1.0ProPremier HealthComment on above:Performed By: #### CBCA, CMP, 79476-4, 45174-5, TSHR, 05580-6, 2777-1, 2639-3, 2157-6, 3024-7 #### [facility] ([id number]) [address], [address] [place], [place] [address]Azlgylrasfp PCRon 46-41-7786Glirkjbqsin PCR, PNegativeNormal NegativeProPremier HealthComment on above:Result Comment: NOTE ADDITIONAL INFORMATION This test was developed and its performance characteristics determined by [facility] in a manner consistent with CLIA requirements. This test has not been cleared or approved by the U.S. Food and Drug Administration. Test Performed by: [place] [address] Compliance Nurse: Ulysses Juarez Ph.D.; CLIA# [id number] PANELon 11-06-2024 Gastrointestinal pathogens DNA and RNA [...] detected (qualifier value) SAPOVIRUS Not detected (qualifier value)NormalNDETProPremier HealthComment on above:Performed By: #### CBCA, CMP, 81763-2, 86401-9, TSHR, 19833-7, 2777-1, 2639-3, 2157-6, 3024-7 #### [facility] ([id number]) [address], [address] [place], [place] [address]Nvefvkbczxpofjjv pathogens DNA and RNA panel JACKSON+non-probe (Stl) on 64-90-1937Kopssddufi 40+41 DNA JACKSON+non-probe Ql (Stl)Not detectedNot Detected^Not DetectedOhioHealth Dublin Methodist HospitalAstrovirus subtypes 1-8 RNA JACKSON+non- probe Ql (Stl)Not detectedNot Detected^Not DetectedSelect Medical [facility]. cayetanensis DNA JACKSON+non-probe Ql (Stl)Not detectedNot Detected^Not Detected [facility] Methodist HospitalC. coli+jejuni+upsaliensis DNA JACKSON+non-probe Ql (Stl)Not detectedNot Detected^Not DetectedOhioHealth Dublin Methodist HospitalCryptosporidium sp DNA JACKSON+non-probe Ql (Stl)Not detectedNot Detected^Not DetectedOhioHealth Dublin Methodist HospitalE. coli enteroaggregative Sweetie plasmid aggR+aatA genes JACKSON+non-probe Ql (Stl)Not detectedNot Detected^Not DetectedOhioHealth Dublin Methodist HospitalE. coli enteropathogenic eae gene JACKSON+non-probe Ql (Stl)Not detectedNot Detected^Not DetectedOhioHealth Dublin Methodist HospitalE. coli enterotoxigenic ltA+st1a+st1b genes JACKSON+non-probe Ql (Stl)Not detectedNot Detected^Not DetectedOhioHealth Dublin Methodist HospitalE. coli stx1+stx2 genes JACKSON+non-probe Ql (Stl)Not detectedNot Detected^Not DetectedOhioHealth Dublin Methodist HospitalE. histolytica DNA JACKSON+non-probe Ql (Stl)Not detectedNot Detected^Not DetectedOhioHealth Dublin Methodist HospitalG. lamblia DNA JACKSON+non- probe Ql (Stl)Not detectedNot Detected^Not DetectedOhioHealth Dublin Methodist Hospital Norovirus genogroup I+II RNA JACKSON+non-probe Ql (Stl)Not detectedNot Detected^Not DetectedOhioHealth Dublin Methodist HospitalP. shigelloides DNA JACKSON+non-probe Ql (Stl)Not detectedNot Detected^Not DetectedOhioHealth Dublin Methodist HospitalRotavirus A RNA JACKSON+non- probe Ql (Stl)Not detectedNot Detected^Not DetectedUNC Medical Center. enterica+bongori DNA JACKSON+non-probe Ql (Stl)Not detectedNot Detected^Not Detected [facility]C Medical Centerapovirus genogroups I+II+IV+V RNA JACKSON+non-probe Ql (Stl) Not detectedNot Detected^Not DetectedUNC Medical Centerhigella species+EIEC invasion plasmid antigen H ipaH gene JACKSON+non-probe Ql (Stl)Not detectedNot Detected^Not DetectedUNC Medical Centerpecimen source Nom (Body fld)STOOLProDayton Osteopathic HospitalV. cholerae DNA JACKSON+non-probe Ql (Stl)Not detectedNot Detected^Not DetectedOhioHealth Dublin Methodist HospitalV. cholerae+parahaemolyticus+vulnificus DNA JACKSON+non-probe Ql (Stl)Not detectedNot Detected^Not DetectedOhioHealth Dublin Methodist HospitalY. enterocolitica DNA JACKSON+non-probe Ql (Stl)Not detectedNot Detected^Not DetectedBarnes-Kasson County HospitalGlomerular basement membrane IgG Qn (S)on 46-35-9712XOO IgG Ab<0.2 Normal<1.0German HospitalComment on above:Performed By: #### CBCA, CMP, 53113-3, 07014-5, TSHR, 73320-9, 2777-1, 2639-3, 2157-6, 3024-7 #### [facility] ([id number]) [address] [place] [address], [address] [place], [place] [address]Gruoxja Glucometer (BldC) [Mass/Vol]on 70-05-3799Iaslicw [Mass/Vol]142 mg/wCLrur60 - 99 mg/dLOhioHealth Dublin Methodist HospitalInterpretation and review of laboratory resultsAbnormalProPenn State HealthGlucose [Mass/Vol]142 mg/sUCune93-08QacQwybgkPremier HealthGlucose [Mass/Vol]120 mg/kMOffe42 - 99 mg/dLOhioHealth Dublin Methodist HospitalGlucose [Mass/Vol]142 mg/cNDwxw23 - 99 mg/dLOhioHealth Dublin Methodist HospitalInterpretation and review of laboratory resultsAbnormalBarnes-Kasson County HospitalGlucose [Mass/Vol]142 mg/tEJcyf12-37SlfTolidvPremier HealthGlucose [Mass/Vol]120 mg/dL Kizc54-04JtmVssrmtGerman HospitalGlucose [Mass/Vol]150 mg/gNVuxc45 - 99 mg/dL [facility] HospitalInterpretation and review of laboratory resultsAbnormal Barnes-Kasson County HospitalGlucose [Mass/Vol]150 mg/dLHigh 65-99German HospitalHIV 1&2 AB/AG Screen (P24 AG)on 78-47-9791FXM 1+2 Ab+HIV1 p24 Ag IA WsCdo-WbwsobzmMbt-Cxpzkzhf^Non-ReactiveOhioHealth Dublin Methodist Hospital HIV 1+2 Ab+HIV1 p24 Ag IA Qlon 78-22-0178ObpTmjsyiOhioHealth Dublin Methodist HospitalHIV 1 and 2 Ab/Ag ScreenNon-ReactiveNormsdNRHolzer HospitalComment on above: Result Comment: NEW TEST [...] results or diagnoses.Performed By: #### CBCA, CMP, 99342-0, 96863-1, TSHR, 78434-5, 2777-1, 2639-3, 2157-6, 3024-7 #### [facility] ([id number]) [address], [address] [place], [place] [address]Emdfyed calciumon 69-84-5383Moxxloc.ionized (Bld) [Mass/Vol]4.8 mg/dL4.5 - 5.3 mg/dLOhioHealth Dublin Methodist HospitalCalcium.ionized (Bld) [Mass/Vol]4.3 mg/dLLow4.5 - 5.3 mg/dLOhioHealth Dublin Methodist HospitalLDHon 00-74-9076FPW [Catalytic activity/Vol]2584 U/YZgmb972 - 235 U/LPrThe Surgical Hospital at SouthwoodsLDH [Catalytic activity/Vol]on 75-06-5704Qujdkpyqjodshl and review of laboratory results AbnormalBarnes-Kasson County HospitalLDH2584 U/UQyaz300-047 [facility] Rehabilitation HospitalComment on above:Performed By: #### CBCA, CMP, 88910-7, 62340-6, TSHR, 46302-8, 2777-1, 2639-3, 2157-6, 3024-7 #### [facility] ([id number]) [address] [place] [address], [address] [place], [place] [address]Xahmvnettk - Chemistry and Chemistry - challengeon 11-06-2024 Sodium (U) [Moles/Vol]44 mmol/LNormalOhioHealth Dublin Methodist HospitalComment on above: Performed By: #### CBCA, CMP, 63767-2, 69334-7, TSHR, 63644-5, 2777-1, 2639-3, 2157-6, 3024-7 #### [facility] ([id number]) [address] [place] [address], [address] [place], [place] [address]Vxqtvqqzo [Mass/Vol]2.1 mg/dLNormal1.8-2.6Detwiler Memorial Hospital SystemComment on above:Performed By: #### CBCA, CMP, 16736-4, 38760-8, TSHR, 07281-6, 2777-1, 2639-3, 2157-6, 3024-7 #### [facility] ([id number]) [address] [place] [address], [address] [place], [place] [address]Nnduyheat [Mass/Vol]4.6 mg/dLNormal2.4-4.9Detwiler Memorial Hospital SystemComment on above:Performed By: #### CBCA, CMP, 33647-7, 14073-3, TSHR, 16386-4, 2777-1, 2639-3, 2157-6, 3024-7 #### [facility] ([id number]) [facility] [facility], [address] [place], [place] [address]Qvwtghyvbm - Microbiology and Antimicrobial susceptibilityon 11-06-2024. difficile toxin genes JACKSON+probe Ql (Stl)NegativePresumptive Negative^Presumptive NegativeProDayton Osteopathic HospitalMyoglobin [Mass/Vol]on 86-52-7593Idjbbzpfaxjbce and review of laboratory resultsAbnormalProPenn State HealthMyoglobin, serumon 74-20-8679Ioydewymi [Mass/Vol]2074.5 ng/bWDxwe05.3 - 65.8 ng/mLOhioHealth Dublin Methodist HospitalNo Panel Informationon 64-58-7249JjwCiflpgPenn State HealthNuclear Ab IA Ql (S)on 24-21-6163CSK Screen w/reflexNegativeNormalNEGProPremier HealthComment on above:Result Comment: Testing performed using multiplex flow immunoassay. Eleven different antigens associated with systemic autoimmune diseases (dsDNA,Sm,Sm/TIP MENDER,TIP MENDER,Chromatin, SSA,SSB,Oma-1,Scl70,Ribo P,Centromere B) are included in this screening test.Performed By: #### CBCA, CMP, 96076-6, 20602-8, TSHR, 41305-5, 2777-1, 2639-3, 2157-6, 3024-7 #### [facility] ([id number]) [facility] [facility], [address] [place], [place] [address]QBIXWBLEXwy 93-11-8895Wcsabbfhz [Moles/Vol]4.2 mmol/LNormal 3.5-5.0ProPremier HealthComment on above:Performed By: #### CBCA, CMP, 17941-1, 33488-1, TSHR, 88300-8, 2777-1, 2639-3, 2157-6, 3024-7 #### [facility] ([id number]) [address] [place] [address], [address] [place], [place] [address]BJVVZKN CREAT RATIOon 08-14-3319HZUNSI URINE AVTIABV317 mg/LHigh <120ProPremier HealthComment on above:Performed By: #### IJEOMA, SYED, 38814-9, 45906-0, TSHR, 33550-7, 2777-1, 2639-3, 2157-6, 302-7 #### [facility] ([id number]) [address], [address] [place], [place] [address]Z/PRO/STAKE DRIVER RATIO CALC2.45High<0.2PWVUMedicine Harrison Community HospitalComment on above:Result Comment: Nephrotic Syndrome is associated with ratios >3.5 Performed By: #### SYED RAPHAEL, 05887-6, 20732-0, TSHR, 21529-0, 2777-1, 2639-3, 2156-6, 3023-7 #### [facility] ([id number]) [address], [address] [place], [place] [address]JDONW CREATININE,RDM36.36 mg/dLNormalProPremier Health Comment on above:Performed By: #### SYED RAPHAEL, 35380-0, 02798-6, TSHR, 50286-5, 2777-1, 2639-3, 2156-6, 3023-7 #### [facility] ([id number]) [address], [address] [place], [place] [address]Lhmdwqesxja 93-15-3824Vztdtyvrp [Moles/Vol]4.2 mmol/L3.5 - 5.0 mmol/LProMedSt. Elizabeth HospitalPotassium [Moles/Vol]on 45-33-7492GsnTfjulnCorey HospitalERUM PROTEIN ELECTROPHORESISon 43-89-4851BGWYRLWFZDKHUT CREDITEDNormal 3.4-5.3PWVUMedicine Harrison Community HospitalComment on above:Result Comment: QUANTITY NOT SUFFICIENTPerformed By: #### IJEOMA, SYED, 89001-2, 62061-3, TSHR, 56487-4, 2777-1, 2639-3, 2157-6, 302-7 #### [facility] ([id number]) [address] [facility], [address] [place], [place] [address]XTAPA 1 GLOBULINREQUEST CREDITEDNormal0.1-0.4ProDiley Ridge Medical Center HospitalComment on above:Result Comment: QUANTITY NOT SUFFICIENTPerformed By: #### CBCA, CMP, 37086-1, 02650-6, TSHR, 97097-6, 2777-1, 2639-3, 2157-6, 3024-7 #### [facility] ([id number]) [address], [address] [place], [place] [address]XLYRV 2 GLOBULINREQUEST CREDITEDNormal0.4-1.1ProMedParkwood Hospital HospitalComment on above:Result Comment: QUANTITY NOT SUFFICIENTPerformed By: #### CBCA, CMP, 17022-8, 44846-4, TSHR, 52243-9, 2777-1, 2639-3, 2157-6, 3024-7 #### [facility] ([id number]) [address] [facility], [address] [place], [place] [address]HGYZ GLOBULINREQUEST CREDITEDNormal0.5-1.2ProMedParkwood Hospital HospitalComment on above:Result Comment: QUANTITY NOT SUFFICIENTPerformed By: #### CBCA, CMP, 81136-1, 80659-2, TSHR, 65295-9, 2777-1, 2639-3, 2157-6, 3024-7 #### [facility] ([id number]) [address], [address] [place], [place] [address]NDQQP GLOBULINREQUEST CREDITEDNormal0.5-1.6ProDiley Ridge Medical Center HospitalComment on above:Result Comment: QUANTITY NOT SUFFICIENTPerformed By: #### CBCA, CMP, 98669-5, 33175-8, TSHR, 73653-4, 2777-1, 2639-3, 2157-6, 3024-7 #### [facility] ([id number]) [address] [place] [address] [address] [place], [place] [address]RVGL. ELECTROPHORESIS INTERPREQUEST CREDITEDNoPike Community HospitalComment on above:Result Comment: QUANTITY NOT SUFFICIENTPerformed By: #### IJEOMA, CMP, 19942-6, 34698-8, TSHR, 63734-7, 2777-1, 2639-3, 2157-6, 3024-7 #### [facility] ([id number]) [address], [address] [place], [place] [address]Cqniyjo [Mass/Vol]6.3 g/dLNormal6.0-8.0[facility] Comment on above:Result Comment: REQUEST CREDITED QUANTITY NOT SUFFICIENTPerformed By: #### IJEOMA, SYED, 09122-5, 90329-5, TSHR, 26208-7, 2777-1, 2639-3, 2157-6, 3024-7 #### [facility] ([id number]) [address], [address] [address]Kmbucq (U) [Moles/Vol]on 93-58-7952PuaFaosjn Health System URINALYSISon 93-48-5848Mdmqguwvt Ql (U)NegativeNormalNEGDetwiler Memorial Hospital System Comment on above:Performed By: #### IJEOMA, SYED, 50345-8, 56116-3, TSHR, 91927-4, 2777-1, 2639-3, 2157-6, 3024-7 #### [facility] ([id number]) [address] [place] [address] [address] [place], [place] [address]Fbipn (U)YELLOWNormalYELLOWDetwiler Memorial Hospital SystemComment on above:Performed By: #### ANISHA, CMP, 27328-8, 31858-0, TSHR, 70283-2, 2777-1, 2639-3, 2157-6, 3024-7 #### [facility] ([id number]) [address] [place], [place] [address]hM (U)6.5 [pH]Normal5.0-8.5PUniversity Hospitals Elyria Medical CenterComment on above:Performed By: #### CBCA, CMP, 96888-9, 80515-1, TSHR, 74043-4, 2777-1, 2639-3, 2157-6, 3024-7 #### [facility] ([id number]) [address], [address] [place], [place] [address]CMZHN/HGBLargeAbnormalNEGProMedica Saltese HospitalComment on above:Performed By: #### CBCA, CMP, 56412-6, 75860-0, TSHR, 78808-9, 2777-1, 2639-3, 2157-6, 3024-7 #### [facility] ([id number]) [address], [address] [place], [place] [address]Wrvcxuo Ql (U)NegativeNormalNEGProSelect Medical Ohiohealth Rehabilitation Hospital - Dublinca Saltese HospitalComment on above:Performed By: #### CBCA, CMP, 33586-4, 98951-9, TSHR, 22908-4, 2777-1, 2639-3, 2157-6, 3024-7 #### [facility] ([id number]) [address], [address] [place], [place] [address]Fkrmnkv Ql (U)NegativeNormalNEGProSelect Medical Ohiohealth Rehabilitation Hospital - Dublinca Saltese HospitalComment on above:Performed By: #### CBCA, CMP, 18985-3, 35787-8, TSHR, 48459-3, 2777-1, 2639-3, 2157-6, 3024-7 #### [facility] ([id number]) [address], [address] [place], [place] [address]Zkxpbjail esterase Test strip Ql (U)NegativeNormalNEGProMedica Saltese HospitalComment on above:Performed By: #### CBCA, CMP, 93194-1, 76147-3, TSHR, 91947-7, 2777-1, 2639-3, 2157-6, 3024-7 #### [facility] - [facility] ([id number]) [address], [address] [place], [place] [address]Rlqaxpu Ql (U)NegativeNormalNEGProMedica Saltese HospitalComment on above:Performed By: #### CBCA, CMP, 44621-9, 20083-5, TSHR, 10182-0, 2777-1, 2639-3, 2157-6, 3024-7 #### [facility] ([id number]) [address], [address] [place], [place] [address]Qrhjusf Ql (U)70 mg/dLAbnormalNEGProSelect Medical [facility] - [facility] Comment on above:Performed By: #### CBCA, CMP, 92360-9, 22518-7, TSHR, 99180-6, 2777-1, 2639-3, 2156-6, 3023- #### [facility] ([id number]) [address], [address] [place], [place] [address]M.B.CELLS<5Wcsyan3-3NgjStiiza Saltese HospitalComment on above: Performed By: #### CBCA, CMP, 79499-6, 15795-8, TSHR, 98434-5, 2777-1, 2639-3, 7-6, 3023- #### [facility] ([id number]) [address], [address] [place], [place] [address]Gmnazgkm gravity (U) [Rel density]1.613Eabuwj8.003-1.035 [facility]ica Saltese HospitalComment on above:Performed By: #### CBCA, CMP, 30485-7, 19277-0, TSHR, 41120-3, 2777-1, 2639-3, 2157-6, 4-7 #### [facility] ([id number]) [address], [address] [place], [place] [address]QOJEDIVV EPITHELIUM<8Norqws9-5JkzIpsnxw Saltese HospitalComment on above:Performed By: #### CBCA, CMP, 41029-2, 10409-7, TSHR, 01514-7, 2777-1, 2639-3, 2157-6, 3024-7 #### [facility] ([id number]) [address], [address] [place] [address]OMICSRVCZTGPMHCtgddrPOZSUOxxYsbhcv [place] HospitalComment on above:Performed By: #### CBCA, CMP, 63206-8, 73366-0, TSHR, 12716-8, 2777-1, 2639-3, 2157-6, 3024-7 #### [facility] ([id number]) [address], [address] [place] [address]Icpsyegxns dipstick W Reflex Microscopic panel (U)URINE RECEIVED WITHOUT PRESERVATIVE-DELAYS IN TRANSPORT MAY AFFECT RESULTS.INTERPRET WITH CAUTION AND CLINICAL CORRELATION IS RECOMMENDED.NormalGerman Hospital Comment on above:Performed By: #### CBCA, CMP, 17670-7, 01713-7, TSHR, 04736-8, 2777-1, 2639-3, 2157-6, 3024-7 #### [facility] ([id number]) [address], [address] [address]Apohrmaziikc (U) [Mass/Vol]mg/dLNormal<1.1PWVUMedicine Harrison Community HospitalComment on above:Performed By: #### CBCA, CMP, 61799-7, 91113-5, TSHR, 09947-6, 2777-1, 2639-3, 2157-6, 3024-7 #### [facility] ([id number]) [address], [address] [place] [address]H.B.CELLS1 /hpfNormal0-5PWVUMedicine Harrison Community HospitalComment on above:Performed By: #### CBCA, CMP, 88723-5, 37278-6, TSHR, 47243-9, 2777-1, 2639-3, 2157-6, 3024-7 #### [facility] ([id number]) [address] [place], [place] [address]Kbfvfoktezds 57-23-9696Jpujnjveou cells Auto (Urine sed) [#/Area][facility] SystemGlucose (U) [Mass/Vol]NegativeNegative^Negative mg/dLOhioHealth Dublin Methodist HospitalHemoglobin Auto test strip Ql (U)LargeAbnormal Negative^NegativeDetwiler Memorial Hospital SystemInterpretation and review of laboratory resultsAbnormalProRegional Medical Center Of Jacksonville Health SystemKetones (U) [Mass/Vol]Negative Negative^Negative mg/dLDetwiler Memorial Hospital SystemLeukocyte esterase Auto test strip Ql (U)NegativeNegative^NegativeOhioHealth Dublin Methodist HospitalNitrite Auto test strip Ql (U)NegativeNegative^NegativeAvita Health System Bucyrus [facility] Health SystemProtein (U) [Mass/Vol]70 mg/dLAbnormalNegative^NegativeDetwiler Memorial Hospital SystemRBC Auto (Urine sed) [#/Area]UNC Medical Centerpecific gravity Refractometry automated (U) [Rel density]1.0091.003 - 1.035[facility] Hospital SystemTurbidity Ql (U)CLEAR CLEAR^CLEARDetwiler Memorial Hospital SystemUrinalysis microscopic panel Auto (Urine sed) [#/Area]URINE RECEIVED WITHOUT PRESERVATIVE-DELAYS IN TRANSPORT MAY AFFECT RESULTS.INTERPRET WITH CAUTION AND CLINICAL CORRELATION IS RECOMMENDED.[facility] Hospital SystemUrobilinogen Qn (U)NINFPUniversity Hospitals Elyria Medical CenterWBC Auto (Urine sed) [#/Area]1PCleveland Clinic Union Hospital SystemDetwiler Memorial Hospital SystemUrine Creatinine,Rdmon 93-35-9062Wqtzowgzlb (U) [Mass/Vol]36.52 mg/dLDetwiler Memorial Hospital SystemUrine protein creatinine ratioon 27-75-2082Auuxoqjosw (U) [Mass/Vol]36.36 mg/dL [facility] SystemInterpretation and review of laboratory resultsAbnormal ProMandalusia health Health SystemProtein (U) [Mass/Vol]890 mg/LHighNINF - 120 mg/L ProMLake City Hospital and Clinic SystemProtein/Creatinine (U) [Ratio]2.45HighNINF - 0.2PWisconsin Heart Hospital– Wauwatosa SystemACUTE HEPATITIS PANELon 65-65-8050WVJN HCV W/PCR REFLXNon-ReactiveNormalNRCTProSelect Medical [facility] Rehabilitation Hospital - Dublinca Saltese HospitalComment on above: Result Comment: NEW TEST METHOD NOTE If recent infection suspected, recommend repeat testing (>2 months). Cekklf-bd-wxwofy ratio is <1.00.Performed By: #### CBCA, CMP #### [facility] ([id number]) [address], [address] [place], [place] [address]RFJKMHHPF A IGMNon-ReactiveNormalCTGerman Hospital Comment on above:Result Comment: NEW TEST METHODPerformed By: #### CBCA, CMP #### [facility] ([id number]) [address], [address] [place], [place] [address]PYGGYPZEZ B CORE IGMNon-ReactiveNoCity of Hope, PhoenixCTMcCullough-Hyde Memorial Hospital HospitalComment on above:Result Comment: NEW TEST METHODPerformed By: #### CBCA, CMP #### [facility] ([id number]) [address], [address] [place], [place] [address]UKUDUBSHI B SURF AGNon-ReactiveNormalCTMcCullough-Hyde Memorial Hospital HospitalComment on above:Result Comment: NEW TEST METHODPerformed By: #### CBCA, CMP #### [facility] ([id number]) [address], [address] [place], [place] [address]LHYZKZXH BLOOD GASon 15-24-7389HXXWR'S TESTPassNormalProSelect Medical [facility] Rehabilitation Hospital - Dublinca Saltese HospitalComment on above:Performed By: #### ABG ####[facility] ([id number])[address] [place], [place] [address]BQCL,DEFICIT9.0 MMOL/L High0.0-2.0ProSelect Medical Ohiohealth Rehabilitation Hospital - Dublinca Saltese HospitalComment on above:Performed By: #### ABG ####[facility] ([id number])[address] [place], [place] [address]Wzhx hvztavikorp18.6 [degF]Uyvthu02.0ProMedica Hassan HospitalComment on above: Performed By: #### ABG ####[facility] ([address] [place] [address])[address] [place], [place] [address]SQZ3 (Bld) [Moles/Vol]17.0 mmol/GRnr82-01JszBklwci Hassan HospitalComment on above:Performed By: #### ABG ####[facility] ([address] [place] [address] [place], [place] [address]NVYI. O2 CONC.21 %NormalProMedica Hassan HospitalComment on above:Performed By: #### ABG ####[facility] ([address] [place] [address])[address] [place], [place] [address]Xhlcms (Bld) [Partial pressure]38 mm[Hg]Critically bun72-539FgqMjwirr Hassan HospitalComment on above: Performed By: #### ABG ####[facility] ([address] [place] [address])[address] [place], [place] [address]Txmwum saturation in Blood65.0 %Low>90ProMedica Hassan HospitalComment on above:Performed By: #### ABG ####[facility] ([address] [place] [address])[address] [place], [place] [address]FFKFJP SOURCERoomAirNormalProMedica Hassan HospitalComment on above:Performed By: #### ABG ####[facility] ([address] [place] [address])[address] [place], [place] [address]TGN059.3 SINHUkuhry91-84 Pro[facility] Hassan HospitalComment on above:Performed By: #### ABG ####[facility] ([address] [place] [address])[address] [place], [place] [address]yJ (Bld)7.279 [pH]Low7.350-7.450ProMedica Hassan HospitalComment on above:Performed By: #### ABG ####[facility] ([address] [place] [address])[address] [place] [address] SAMPLE SITERRadNormalProMedica Hassan HospitalComment on above:Performed By: #### ABG ####[facility] ([id number])[address] [place], [place] [address]AIIETL TYPEARTERIALNormalProMedica Hassan HospitalComment on above: Performed By: #### ABG ####[facility] ([id number])[address] [place], [place] [address]ZKGLQ METABOLIC PANLon 09-19-2110Bcxug gap [Moles/Vol]10 mmol/LNormal5-15ProMedica Hassan HospitalComment on above:Performed By: #### BMP ####[facility] ([id number])[address], [address] [place] [address]Pdtczbl [Mass/Vol]7.7 mg/dLLow8.5-10.5ProMedica Hassan HospitalComment on above:Performed By: #### BMP ####[facility] ([id number])[address], [address], [place] [address]Ifkdksae [Moles/Vol]105 mmol/RCfwtyh82-024RskStrfkg Hassan HospitalComment on above:Performed By: #### BMP ####[facility] ([id number])[address], [address], [place] [address]QT5 [Moles/Vol]24 mmol/WQnrcbq04-49HuiAbwhkp [facility] Comment on above:Performed By: #### BMP ####[facility] ([id number])[address], [address], [place] [address]Kboghvyktn [Mass/Vol]2.43 mg/dLHigh0.40-1.00ProMedica Hassan HospitalComment on above:Result Comment: METHOD TRACEABLE TO IDMS STANDARDPerformed By: #### BMP ####[facility] ([id number])[address] [address]AWF/1.73 sq M.predicted among non-blacks MDRD (S/P/Bld) [Vol rate/Area]28 mL/min/{1.73_m2} Low>59ProPremier HealthComment on above:Result Comment: Reported eGFR is based on the CKD-EPI 2020 equation that does not use a race coefficient.Performed By: #### BMP ####[facility] ([id number])[address] [address]Mdrzpfj [Mass/Vol]105 mg/xQEcfr34-20WjyQuwytcPremier HealthComment on above:Performed By: #### BMP ####[facility] ([id number])[address] [address]Grzknavfx [Moles/Vol]4.1 mmol/LNormal3.5-5.0[facility] Hospital Comment on above:Performed By: #### BMP ####[facility] ([id number])[address] [address]Dvpeva [Moles/Vol]139 mmol/YApymkz445-060KasJhqume [place] HospitalComment on above:Performed By: #### BMP ####[facility] ([id number])[address] [address]Cgbf nitrogen [Mass/Vol]37 mg/dLHigh5-23ProDiley Ridge Medical Center HospitalComment on above:Performed By: #### BMP ####[facility] ([id number])[address] [address]Eegznlza Routine EEGon 04-55-9097TRMSRIJU TRANSCRIBED RESULTSBaseline Routine EEGOrdered By: Ray Mina on 55-25-5013IimJzdeesOhioHealth Dublin Methodist Hospital Work Phone: Basic Metabolic Panelon 97-65-3260Mlouh gap [Moles/Vol]10 mmol/L5 - 15 mmol/LPrProMedica Flower Hospital SystemCalcium [Mass/Vol]7.7 mg/dLLow8.5 - 10.5 mg/dLOhioHealth Dublin Methodist HospitalChloride [Moles/Vol]105 mmol/L98 - 109 mmol/[facility] Health SystemCO2 [Moles/Vol]24 mmol/L22 - 32 mmol/L [facility] HospitalCreatinine [Mass/Vol]2.43 mg/dLHigh0.40 - 1.00 mg/dL [facility] Methodist HospitaleGFR (CKD-EPI)non-race nzjvoljvd06Bjs- PINTexas County Memorial HospitalGlucose [Mass/Vol]105 mg/kNWrbg77 - 99 mg/dLOhioHealth Dublin Methodist Hospital Interpretation and review of laboratory resultsAbnoSampson Regional Medical Center Potassium [Moles/Vol]4.1 mmol/L3.5 - 5.0 mmol/[facility] Health SystemSodium [Moles/Vol]139 mmol/L134 - 146 mmol/[facility] SystemUrea nitrogen [Mass/Vol]37 mg/dLHigh5 - 23 mg/dLBarnes-[facility] Blood Gas, Arterialon 41-01-7981Rahtftun patency Wrist artery --pre arterial puncturePassOhioHealth Dublin Methodist HospitalBase deficit (Bld) [Moles/Vol]9 mmol/LHigh [facility] HospitalCO2 (Bld) [Partial pressure]36.3 mm[Hg][facility] HospitalHCO3 (Bld) [Moles/Vol]17 mmol/LLowOhioHealth Dublin Methodist HospitalInterpretation and review of laboratory resultsAbnormFlower HospitalOxygen (Bld) [Partial pressure]38 mm[Hg]Critically lowOhioHealth Dublin Methodist HospitalOxygen therapy source and amount [CARE]RoomAirProDayton Osteopathic HospitalOxygen/Inspired gas setting [Volume Fraction] Hgygdrmtuf74 %[facility] HospitalpH (Bld)7.279 [pH]Low7.350 - 7.450UNC Medical Centerpecimen site NarrativeRRadUNC Medical Centerpecimen type Nom (Spec)ARTERIALBarnes-Kasson County HospitalCBC AND AUTO DIFFon 70-21-4433Zjqr form neutrophils/100 WBC (Bld) 3.8 %[facility] Community HospitalComment on above:Performed By: #### CBCA, CMP, 75744-2, 74490-6, TSHR, 74487-9, 2777-1, 2639-3, 2157-6, 3024-7 #### [facility] ([id number]) [address], [address] [place], [place] [address]Aokckzcgjnb distribution width (RBC) [Ratio]13.7 %Normal 11.5-15.0German HospitalComment on above:Performed By: #### CBCA, CMP, 76749-2, 66088-0, TSHR, 82896-4, 2777-1, 2639-3, 2157-6, 3024-7 #### [facility] ([id number]) [address] [place], [place] [address]Hxvlntpdjh (Bld) [Volume fraction]40.0 %Jablql12-64MzlNzsvtsPremier HealthComment on above:Performed By: #### CBCA, CMP, 50551-7, 16703-3, TSHR, 20116-8, 2777-1, 2639-3, 2157-6, 3024-7 #### [facility] ([id number]) [address], [address] [place], [place] [address]Mhjjewpkko (Bld) [Mass/Vol]13.4 g/zLZuimop39.7-15.5PWVUMedicine Harrison Community HospitalComment on above:Performed By: #### CBCA, CMP, 46877-9, 53388-1, TSHR, 24554-9, 2777-1, 2639-3, 2157-6, 3024-7 #### [facility] ([id number]) [address], [address] [place], [place] [address]Bhkdpxrrxbb (Bld) [#/Vol]1.8 10*3/uLNormal1.0-3.5PWVUMedicine Harrison Community HospitalComment on above:Performed By: #### CBCA, CMP, 08807-0, 74442-7, TSHR, 61935-8, 2777-1, 2639-3, 2157-6, 3024-7 #### [facility] ([id number]) [address], [address] [place], [place] [address]Yyyazliifwe/100 WBC (Bld)5.8 %NormalProPremier Health Comment on above:Performed By: #### CBCA, CMP, 69425-9, 29728-4, TSHR, 34156-5, 2777-1, 2639-3, 2157-6, 3024-7 #### [facility] ([id number]) [address] [place], [place] [address]UGD (RBC) [Entitic mass]29.8 pyOyfcem18-23JnvLhmhkw [place] HospitalComment on above:Performed By: #### CBCA, CMP, 37645-4, 39716-1, TSHR, 32800-6, 2777-1, 2639-3, 2157-6, 3024-7 #### [facility] ([id number]) [address] [place], [place] [address]AYSW (RBC) [Mass/Vol]33.4 g/pZHsvblb64-49HonBehltn [place] HospitalComment on above:Performed By: #### CBCA, CMP, 75355-1, 38429-0, TSHR, 51213-7, 2777-1, 2639-3, 2157-6, 3024-7 #### [facility] ([id number]) [address], [address] [place], [place] [address]TMQ (RBC) [Entitic vol]89 vAJrlsqn22-158VlkKmoelu [place] HospitalComment on above:Performed By: #### CBCA, CMP, 28029-7, 56646-2, TSHR, 66528-1, 2777-1, 2639-3, 2157-6, 3024-7 #### [facility] ([id number]) [address], [address] [place], [place] [address]Gniulvpjp (Bld) [#/Vol]0.9 10*3/uLNormal0-0.9ProPremier HealthComment on above:Performed By: #### CBCA, CMP, 71045-9, 74876-8, TSHR, 35748-5, 2777-1, 2639-3, 2157-6, 3024-7 #### [facility] ([id number]) [address] [facility] [place], [place] [address]Ktovozili/100 WBC (Bld)2.9 %NormalProPremier Health Comment on above:Performed By: #### CBCA, CMP, 97928-3, 25930-5, TSHR, 70560-2, 2777-1, 2639-3, 2157-6, 3024-7 #### [facility] ([id number]) [address] [facility], [address] [place], [place] [address]Atqvsxtiiut (Bld) [#/Vol]28.8 10*3/uLHigh1.5-6.6ProPremier HealthComment on above:Performed By: #### CBCA, CMP, 40295-1, 80244-8, TSHR, 03049-4, 2777-1, 2639-3, 2157-6, 3024-7 #### [facility] ([id number]) [address] [place], [place] [address]Baonfkob mean volume (Bld) [Entitic vol]7.5 fLNormal7-12 [facility] HospitalComment on above:Performed By: #### CBCA, CMP, 72585-0, 40544-6, TSHR, 83911-5, 2777-1, 2639-3, 2157-6, 3024-7 #### [facility] ([id number]) [address] [facility], [address] [place], [place] [address]Mfkhldhkg (Bld) [#/Vol]297 10*3/pUAfuacc527-900PurBmsbwm Saltese HospitalComment on above:Performed By: #### CBCA, CMP, 42497-3, 40547-3, TSHR, 05627-4, 2777-1, 2639-3, 2157-6, 3024-7 #### [facility] ([id number]) [address], [address] [place], [place] [address]DZO COUNT4.49 X10E12/LNormal3.80-5.20ProSelect Medical [facility] - [facility]ubl[facility]a [facility] Comment on above:Performed By: #### CBCA, CMP, 74264-5, 55222-0, TSHR, 04404-9, 2777-1, 2639-3, 2157-6, 3024-7 #### [facility] ([id number]) [address] [place], [place] [address]CBZ morphology finding Nom (Bld)NORMALNormalProSelect Medical [facility] - Dublinca Saltese HospitalComment on above:Performed By: #### CBCA, CMP, 67587-2, 74386-5, TSHR, 51601-1, 2777-1, 2639-3, 2157-6, 3024-7 #### [facility] ([id number]) [address], [address] [place], [place] [address]WTV HCDFSITSCD93.5 %NormalProSelect Medical [facility] - Dublinca Saltese HospitalComment on above:Performed By: #### CBCA, CMP, 84176-6, 94129-2, TSHR, 25593-5, 2777-1, 2639-3, 2157-6, 3024-7 #### [facility] ([id number]) [address], [address] [place], [place] [address]RYQ (Bld) [#/Vol]31.5 10*3/uLHigh4.0-11.0ProMedica Saltese HospitalComment on above:Performed By: #### CBCA, CMP, 41261-4, 85183-5, TSHR, 29120-5, 2777-1, 2639-3, 2157-6, 3024-7 #### [facility] ([id number]) [address] [facility], [address] [place], [place] [address]HZO auto differentialon 96-73-2490Heiw form neutrophils/100 WBC (Bld)3.8 %[facility] HospitalErythrocyte distribution width (RBC) [Ratio] 13.7 %11.5 - 15.0 %[facility] Hospital SystemHematocrit (Bld) [Volume fraction]40 % 35 - 47 %[facility] HospitalHemoglobin (Bld) [Mass/Vol]13.4 g/dL11.7 - 15.5 g/dLOhioHealth Dublin Methodist HospitalInterpretation and review of laboratory results AbnormalOhioHealth Dublin Methodist HospitalLymphocytes (Bld) [#/Vol]1.8 10*3/uLOhioHealth Dublin Methodist HospitalLymphocytes/100 WBC (Bld)5.8 %[facility] Methodist HospitalMCH (RBC) [Entitic mass]29.8 pg27 - 34 pgPUniversity Hospitals Elyria Medical CenterMCHC (RBC) [Mass/Vol]33.4 g/dL32 - 36 g/dLOhioHealth Dublin Methodist HospitalMCV (RBC) [Entitic vol]89 fL80 - 100 fL [facility] HospitalMonocytes (Bld) [#/Vol]0.9 10*3/uLOhioHealth Dublin Methodist Hospital Monocytes/100 WBC (Bld)2.9 %[facility] HospitalNeutrophils (Bld) [#/Vol]28.8 10*3/uLHighOhioHealth Dublin Methodist HospitalPlatelet mean volume (Bld) [Entitic vol]7.5 fL7 - 12 fLPCleveland Clinic Union Hospital SystemPlatelets (Bld) [#/Vol]297 10*3/uLOhioHealth Dublin Methodist HospitalPolymorphonuclear cells/100 WBC (Bld)NORMALOhioHealth Dublin Methodist Hospital RBC (Bld) [#/Vol]4.49 10*6/uLUNC Medical Centeregmented neutrophils/100 WBC (Bld)87.5 %[facility] HospitalWBC corrected for nucl RBC Auto (Bld) [#/Vol]31.5HWellSpan Chambersburg [facility] Totalon 86-59-8627EA [Catalytic activity/Vol]69833 U/LHigh24 - 170 U/LProMedica St. [facility]'s [facility] [Catalytic activity/Vol]56383 U/LHigh24 - 170 U/LProMedica St. [facility]'s [facility] [Catalytic activity/Vol]on 04-25-7566YAF11217 U/JEmdb58-989QlaMjkudz Hassan HospitalComment on above:Performed By: #### 2639-3, 2156-6 ####[facility] ([id number])[address] [facility], [address], [place] [address]TA[address] U/TGrxa43-618DgfDkbnix [place] HospitalComment on above:Performed By: #### 2157-6, 2638-3 ####[facility] ([id number])[address] [facility], [address] [place] [address]Nooxninmmydidq and review of laboratory resultsAbnormal Barnes-Kasson County HospitalCPK30734 U/EXbbb84-351HojLylsck [place] HospitalComment on above:Performed By: #### CBCSusie, CMP #### [facility] ([id number]) [address], [address] [place], [place] [address]FOCRFXLUNRSMX METABOLIC PANELon 76-61-4853Vyurbwv [Mass/Vol]4.5 g/dLNormal3.2-5.3ProMedParkwood Hospital HospitalComment on above:Performed By: #### CBCA, CMP, 91918-9, 36696-6, TSHR, 97921-1, 2777-1, 2639-3, 7-6, 3024-7 #### [facility] ([id number]) [address] [place], [place] [address]DVB [Catalytic activity/Vol]86 U/SPluthy48-016NuhOqquxh [place] HospitalComment on above:Performed By: #### CBCA, CMP, 07938-6, 00278-7, TSHR, 14516-9, 2777-1, 2639-3, 2157-6, 3024-7 #### [facility] ([id number]) [address], [address] [place] [address]XTH [Catalytic activity/Vol]216 U/LHigh0-31ProMedParkwood Hospital HospitalComment on above:Performed By: #### CBCA, CMP, 97210-9, 55256-6, TSHR, 45590-4, 2777-1, 2639-3, 2157-6, 3024-7 #### [facility] ([id number]) [address], [address] [place], [place] [address]Egkkh gap [Moles/Vol]12 mmol/LNormal5-15[facility] HospitalComment on above:Performed By: #### CBCA, CMP, 34839-3, 45004-7, TSHR, 11416-8, 2777-1, 2639-3, 2157-6, 3024-7 #### [facility] ([id number]) [address], [address] [place], [place] [address]ZTC [Catalytic activity/Vol]488 U/LHigh0-41[facility] HospitalComment on above:Performed By: #### CBCA, CMP, 14481-6, 12915-0, TSHR, 45746-3, 2777-1, 2639-3, 2157-6, 3024-7 #### [facility] ([id number]) [address], [address] [place], [place] [address]Jwbvjxgua [Mass/Vol]0.4 mg/dLNormal0.3-1.2[facility] HospitalComment on above:Performed By: #### CBCA, CMP, 64964-2, 18836-9, TSHR, 88930-6, 2777-1, 2639-3, 2157-6, 3024-7 #### [facility] ([id number]) [address], [address] [place], [place] [address] [Mass/Vol]7.4 mg/dLLow8.5-10.5PWV[facility] Comment on above:Performed By: #### CBCA, CMP, 29901-3, 86983-4, TSHR, 08657-3, 2777-1, 2639-3, 2157-6, 3024-7 #### [facility] ([id number]) [address], [address] [place], [place] [address]Dzjoivtn [Moles/Vol]108 mmol/ZVxrizr44-992ZiyWtjqga [place] HospitalComment on above:Performed By: #### CBCA, CMP, 53669-8, 81895-0, TSHR, 82760-3, 2777-1, 2639-3, 2157-6, 3024-7 #### [facility] ([id number]) [address], [address] [place], [place] [address]VU5 [Moles/Vol]16 mmol/NTdr74-93VlpNryogcWVUMedicine Harrison Community HospitalComment on above:Performed By: #### CBCA, CMP, 10198-8, 18332-7, TSHR, 45156-0, 2777-1, 2639-3, 2157-6, 3024-7 #### [facility] ([id number]) [address], [address] [place], [place] [address]Ryuegwewll [Mass/Vol]2.26 mg/dLHigh0.40-1.00ProPremier HealthComment on above:Result Comment: METHOD TRACEABLE TO IDMS STANDARD Performed By: #### CBCA, CMP, 39408-2, 18541-5, TSHR, 27564-8, 2777-1, 2639-3, 2157-6, 3024-7 #### [facility] ([id number]) [address], [address] [place], [place] [address]IRM/1.73 sq M.predicted among non-blacks MDRD (S/P/Bld) [Vol rate/Area]30 mL/min/{1.73_m2}Low>59ProPremier HealthComment on above: Result Comment: Reported eGFR is based on the CKD-EPI 2020 equation that does not use a race coefficient.Performed By: #### SYED RAPHAEL, 37968-2, 42078-9, TSHR, 20120-3, 2777-1, 2639-3, 2157-6, 3023-7 #### [facility] ([id number]) [address], [address] [place], [place] [address]Mwjczpz [Mass/Vol]104 mg/yCNesf11-13WjfDfbjnwGerman Hospital Comment on above:Performed By: #### SYED RAPHAEL, 83423-6, 24445-2, TSHR, 54575-8, 2777-1, 2639-3, 2157-6, 3023-7 #### [facility] ([id number]) [address], [address] [place], [place] [address]Ibdbupbeg [Moles/Vol]4.0 mmol/LNormal3.5-5.0ProPremier HealthComment on above:Performed By: #### SYDE RAPHAEL, 11039-7, 74642-2, TSHR, 46515-7, 2777-1, 2639-3, 7-6, 3023-7 #### [facility] ([id number]) [address], [address] [place], [place] [address]Whutkjr [Mass/Vol]7.2 g/dLNormal6.0-8.0[facility] Comment on above:Performed By: #### SYED RAPHAEL, 42848-3, 93150-7, TSHR, 62161-5, 2777-1, 2639-3, 2157-6, 3023-7 #### [facility] ([id number]) [address], [address] [place], [place] [address]Qlhesv [Moles/Vol]136 mmol/BPapakt419-390TamDomizpGerman HospitalComment on above:Performed By: #### CBCA, CMP, 36216-2, 25315-5, TSHR, 96255-5, 2777-1, 2639-3, 2157-6, 3024-7 #### [facility] ([id number]) [address], [address] [place], [place] [address]Zvqv nitrogen [Mass/Vol]37 mg/dLHigh5-23ProPremier HealthComment on above:Performed By: #### CBCA, CMP, 27811-5, 58195-9, TSHR, 74948-4, 2777-1, 2639-3, 2157-6, 3024-7 #### [facility] ([id number]) [address] [facility], [address] [place], [place] [address]Hbuswlt.ionized (Bld) [Mass/Vol]on 95-75-7357Evzwfxmckrouxm and review of laboratory resultsAbnormalDetwiler Memorial Hospital SystemProAultman Hospital SystemIONIZED CALCIUM4.1 mg/dLLow4.5-5.3PWVUMedicine Harrison Community HospitalComment on above:Performed By: #### 95901-7 ####[facility] ([id number])[address], [address], [place] [address]Rhsfhqbkmcdds metabolic panelon 18-42-1552Jcwbtgp [Mass/Vol]4.5 g/dL3.2 - 5.3 g/dLProMedica Health SystemALP [Catalytic activity/Vol]86 U/L39 - 130 U/LProMedica Health SystemALT No additional P-5'-P [Catalytic activity/Vol]216 U/LHigh0 - 31 U/LProMedica Health SystemAnion gap [Moles/Vol]12 mmol/L5 - 15 mmol/LProMedica Health System AST [Catalytic activity/Vol]488 U/LHigh0 - 41 U/LProMedica Health System Bilirubin [Mass/Vol]0.4 mg/dL0.3 - 1.2 mg/dLProMedica Health SystemCalcium [Mass/Vol]7.4 mg/dLLow8.5 - 10.5 mg/dLProRegional Medical Center Of Jacksonville Health SystemChloride [Moles/Vol]108 mmol/L98 - 109 mmol/LProMedica Health SystemCO2 [Moles/Vol]16 mmol/LLow22 - 32 mmol/LProMedica Health SystemCreatinine [Mass/Vol]2.26 mg/dL High0.40 - 1.00 mg/dLProAultman Hospital SystemeGFR (CKD-EPI)non-race noxvwkbhd96 Low- PINFProMedMercy Hospital SystemGlucose [Mass/Vol]104 mg/uCMtyp94 - 99 mg/dL [facility] SystemPotassium [Moles/Vol]4 mmol/L3.5 - 5.0 mmol/LProMedica Health SystemProtein [Mass/Vol]7.2 g/dL6.0 - 8.0 g/dLProAultman Hospital System Sodium [Moles/Vol]136 mmol/L134 - 146 mmol/LProMedica Health SystemUrea nitrogen [Mass/Vol]37 mg/dLHigh5 - 23 mg/dLOhioHealth Dublin Methodist HospitalFREE T4on 11-05-2024 Free T4 [Mass/Vol]0.82 ng/dLNormal0.61-1.60German HospitalComment on above:Performed By: #### CBCA, CMP #### [facility] ([id number]) [address] [place] [address], [address] [place], [place] [address]Zsjg T4 [Mass/Vol]on 81-11-6859OdfFukzxhDayton Osteopathic HospitalGlucose Glucometer (BldC) [Mass/Vol]on 89-14-0192Otgpibi [Mass/Vol]112 mg/fRNafa12 - 99 mg/dLDetwiler Memorial Hospital SystemInterpretation and review of laboratory results AbnormalProDayton Osteopathic HospitalProAultman Hospital SystemGlucose [Mass/Vol]112 mg/dFUprt68-58NndEimsqmGerman HospitalGlucose [Mass/Vol]108 mg/lLMqej82 - 99 mg/dLProAultman Hospital SystemInterpretation and review of laboratory results AbnormalProDayton Osteopathic HospitalProAultman Hospital SystemGlucose [Mass/Vol]108 mg/sCWdvy37-45AhpTluutqGerman HospitalGlucose [Mass/Vol]105 mg/kWIldy30 - 99 mg/dLOhioHealth Dublin Methodist HospitalInterpretation and review of laboratory results AbnormalProDayton Osteopathic HospitalProDayton Osteopathic HospitalGlucose [Mass/Vol]105 mg/iOZfuy10-49PevVlfedzGerman HospitalHepatitis panel, acuteon 89-28-2604CFL IgM IA QzXlf-CbuupnsqKgi-Wztqsylx^Non-ReactiveOhioHealth Dublin Methodist HospitalHBV core IgM IA FtYjd-EbvmwavtNfg-Ovethbhi^Non-ReactiveOhioHealth Dublin Methodist HospitalHBV surface Ag IA XoVhu-QhjvjamdMgr-Eirqzomi^Non-ReactiveOhioHealth Dublin Methodist HospitalHCV Ab IA YmKhc-LqgpbvvsZoh-Jomzsvne^Non-ReactiveOhioHealth Dublin Methodist HospitalProDayton Osteopathic HospitalHolter monitor studyon 66-66-1518WUPRGCWD TRANSCRIBED RESULTSOhioHealth Dublin Methodist HospitalIonized calciumon 04-09-2703Unusfju.ionized (Bld) [Mass/Vol]4.1 mg/dLLow4.5 - 5.3 mg/dLOhioHealth Dublin Methodist HospitalL. pneumophila Ag IA Ql (U)on 53-04-8721JcgRmkaoyOhioHealth Dublin Methodist HospitalLEGIONELLA URINE AGon 11-05-2024L. pneumophila Ag IA Ql (U)LEGIONELLA URINE AG Negative (qualifier value) NEGATIVE FOR L.PNEUMOPHILA SEROGROUP 1 ANTIGENNormalGerman Hospital Comment on above:Performed By: #### CBCSusie, CMP #### [facility] ([id number]) [address], [address] [place], [place] [address]Rfaggla (P nancy) [Moles/Vol]on 00-62-1476FbmEyopwiOhioHealth Dublin Methodist Hospital LACTATE W/REFLEX1.0 mmol/LNormal0.4-2.0German HospitalComment on above:Result Comment: Result did not trigger repeat Lactate, re-order if needed.Performed By: #### CBCA, CMP, 12600-8, 79925-3, TSHR, 91582- 9, 2777-1, 2639-3, 2157-6, 3024-7 #### [facility] ([id number]) [address], [address] [place], [place] [address]Qelbzxb w/ Reflexon 24-91-6853Knryjmk (P nancy) [Moles/Vol]1 mmol/L0.4 - 2.0 mmol/LProMedica Health SystemLegionella antigen, urineon 11-05-2024L. pneumophila Ag IA Ql (U)NegativeNegative^NegativeProMedica [facility] SystemMAGNESIUMon 74-50-1543Ceciylhgm [Mass/Vol]2.5 mg/dLNormal1.8-2.6ProDiley Ridge Medical Center HospitalComment on above:Performed By: #### CBCA, CMP, 37939-6, 94315-1, TSHR, 10672-1, 2777-1, 2639-3, 2157-6, 3024-7 #### [facility] ([id number]) [address] [facility], [address] [place], [place] [address]QKPO DNA JACKSON+probe Ql (Unsp spec)on 50-38-4636GfhLmsdxf Health SystemMRSA PCR NASALon 08-07-7461BSIV DNA JACKSON+probe Ql (Unsp spec)NegativeNormal NEGProDiley Ridge Medical Center HospitalComment on above:Performed By: #### CBCA, CMP #### [facility] ([id number]) [address] [facility], [address] [place], [place] [address]Nebsulwaqts 89-56-7318Brlsrxboi [Mass/Vol]2.5 mg/dL1.8 - 2.6 mg/dLProAultman Hospital SystemMrsa Pcr nasal swabon 64-23-3931NRAS DNA JACKSON+probe Ql (Unsp spec)NegativeNegative^NegativeProAultman Hospital SystemMyoglobin [Mass/Vol]on 40-09-6264DOVUO VZUFRTQGK0275.5 ng/hZVkis18.3-65.8ProPremier HealthComment on above:Performed By: #### 2639-3, 2157-6 ####[facility] ([id number])[address] [address], [address], [place] [address]QUXBP MYOGLOBIN 3785.4 ng/nKDjzv43.3-65.8ProMedica Hassan HospitalComment on above:Performed By: #### 2157-6, 2639-3 ####[facility] ([id number])[address] [address], [address], [place] [address]Jzvbljqpycawfm and review of laboratory resultsAbnoWellSpan Surgery & Rehabilitation HospitalERUM MYOGLOBIN 6843.0 ng/fSVgdv90.3-65.8ProPremier HealthComment on above:Performed By: #### CBCA, CMP #### [facility] ([id number]) [address] [facility] [address], [address] [place], [place] [address]Dmvspxhly, serumon 82-27-5147Rqdbwtcpo [Mass/Vol]3785.4 ng/mL High14.3 - 65.8 ng/mLOhioHealth Dublin Methodist HospitalMyoglobin [Mass/Vol]6843 ng/mLHigh 14.3 - 65.8 ng/mLOhioHealth Dublin Methodist HospitalNo Panel Informationon 11-05-2024 Interpretation and review of laboratory resultsAbnormOrthopaedic Hospital of Wisconsin - Glendale SystemInterpretation and review of laboratory resultsAbAscension Eagle River Memorial Hospital SystemPHOSPHORUSon 48-55-4772Lhdlmsgfm [Mass/Vol]6.4 mg/dLHigh2.4-4.9German HospitalComment on above: Performed By: #### CBCA, CMP, 23732-6, 85362-9, TSHR, 64720-5, 2777-1, 2639-3, 2157-6, 3024-7 #### [facility] ([id number]) [address] [address], [address] [place], [place] [address]ERQEADK AND INRon 87-48-7089CXG Coag (PPP) [Relative time]1.2 {INR}High0.8-1.1ProMedTrinity Health System West CampusComment on above:Performed By: #### CBCA, CMP #### [facility] ([id number]) [address] [address], [address] [place], [place] [address]GS Coag (PPP) [Time]13.6 sHigh9.8-13.2PWVUMedicine Harrison Community Hospital Comment on above:Performed By: #### CBCA, CMP #### [facility] ([id number]) [address] [address], [address] [place], [place] [address]Wzfpjoxjkkrn 33-10-5529Wfvradjzj [Mass/Vol]6.4 mg/dLHigh2.4 - 4.9 mg/dLOhioHealth Dublin Methodist HospitalProcalcitoninon 34-85-3048Eakpyluauzkpm IA [Mass/Vol]38.12 ng/mLHighNINF - 0.05 ng/mLOhioHealth Dublin Methodist HospitalProcalcitonin IA [Mass/Vol]on 34-32-3904Dkgjedymgnfuno and review of laboratory results AbnormalBarnes-Kasson County HospitalPROCALCITONIN38.12 ng/mL High<0.05German HospitalComment on above:Result Comment: NOTE <0.50 ng/mL - Low risk of severe sepsis and/or septic shock. <2.00 ng/mL - Recommend retesting within 6-24 hours. >2.00 ng/mL - High risk of sepsis and/or septic shock.Performed By: #### CBCA, CMP, 09046-8, 81109-7, TSHR, 72943-2, 2777-1, 2639-3, 2157-6, 3024-7 #### [facility] ([id number]) [address] [address], [address] [place], [place] [address]Wnhqxej & INRon 71-88-5551FJP Coag (PPP) [Relative time]1.2 {INR}HighOhioHealth Dublin Methodist HospitalInterpretation and review of laboratory results AbnormalOhioHealth Dublin Methodist HospitalPT Coag (PPP) [Time]13.6 [facility] SystemRESP PATHOGENS/NBSZ-LrC-7vi 76-75-4961Cjpggqsofxt pathogens DNA and RNA panel JACKSON+non-probe (Nph)SPECIMEN [...] 2 Not detected (qualifier value) NOTE The A8 Digital Musice Respiratory Panel 2.1 (RP2.1) is a multiplexed [...] evaluating a patient with possible respiratory tract infection.NormalProPremier HealthComment on above:Performed By: #### CBCA, CMP #### [facility] ([id number]) [address] [place] [address], [address] [place], [place] [address]Bdirpcapzsm pathogens DNA and RNA panel JACKSON+non-probe (Nph)on 30-12-1189Syqpcmpkjm DNA JACKSON+non-probe Ql (Nph)Not detectedNot Detected^Not DetectedOhioHealth Dublin Methodist HospitalB. parapertussis FQ3172 DNA JACKSON+non-probe Ql (Nph)Not detectedNot Detected^Not DetectedOhioHealth Dublin Methodist HospitalB. pertussis toxin promoter region JACKSON+non-probe Ql (Nph)Not detectedNot Detected^Not DetectedOhioHealth Dublin Methodist HospitalC. pneumoniae DNA JACKSON+non-probe Ql (Nph)Not detectedNot Detected^Not DetectedOhioHealth Dublin Methodist HospitalFLUAV RNA JACKSON+non-probe Ql (Nph)Not detectedNot Detected^Not DetectedOhioHealth Dublin Methodist HospitalFLUBV RNA JACKSON+non-probe Ql (Nph)Not detectedNot Detected^Not DetectedOhioHealth Dublin Methodist HospitalHCoV 229E RNA JACKSON+non-probe Ql (Nph)Not detectedNot Detected^Not Detected [facility] Methodist HospitalHCoV HKU1 RNA JACKSON+non-probe Ql (Nph)Not detectedNot Detected^Not DetectedOhioHealth Dublin Methodist HospitalHCoV NL63 RNA JACKSON+non-probe Ql (Nph) Not detectedNot Detected^Not DetectedOhioHealth Dublin Methodist HospitalHCoV OC43 RNA JACKSON+non-probe Ql (Nph)Not detectedNot Detected^Not DetectedOhioHealth Dublin Methodist HospitalhMPV RNA JACKSON+non-probe Ql (Nph)Not detectedNot Detected^Not Detected [facility] HospitalM. pneumoniae DNA JACKSON+non-probe Ql (Nph)Not detectedNot Detected^Not DetectedOhioHealth Dublin Methodist HospitalParainfluenza virus 1 RNA JACKSON+non- probe Ql (Nph)Not detectedNot Detected^Not DetectedOhioHealth Dublin Methodist Hospital Parainfluenza virus 2 RNA JACKSON+non-probe Ql (Nph)Not detectedNot Detected^Not DetectedOhioHealth Dublin Methodist HospitalParainfluenza virus 3 RNA JACKSON+non-probe Ql (Nph) Not detectedNot Detected^Not DetectedOhioHealth Dublin Methodist HospitalParainfluenza virus 4 RNA JACKSON+non-probe Ql (Nph)Not detectedNot Detected^Not DetectedOhioHealth Dublin Methodist HospitalRhinovirus+Enterovirus RNA JACKSON+non-probe Ql (Nph)Not detectedNot Detected^Not DetectedOhioHealth Dublin Methodist HospitalRSV RNA JACKSON+non-probe Ql (Nph)Not detectedNot Detected^Not DetectedUNC Medical CenterARS-CoV-2 (COVID-19) RNA JACKSON+probe Ql (Resp)Not detectedNot Detected^Not DetectedUNC Medical Centerpecimen source Nom (Body fld)NASO PHARYNXSSM Rehab PNEUMONIAE AG Uon 11-05-2024S. pneumoniae Ag Ql (U)Negative NormalNEGGerman HospitalComment on above:Performed By: #### CBCA, CMP #### [facility] ([id number]) [address] [place] [address], [address] [place], [place] [address]Q Pneumoniae AG, urineon 11-05-2024S. pneumoniae Ag Ql (U) NegativeNegative^NegativeUNC Medical Center. pneumoniae Ag Ql (U)on 52-71-4655UxcJzwzduOhioHealth Dublin Methodist HospitalT4, freeon 33-00-6557Roal T4 [Mass/Vol]0.82 ng/dL0.61 - 1.60 ng/dLFormerly [facility] WITH REFLEXon 16-72-7984IZQ3.39 uIU/mLLow0.49-4.67ProPremier HealthComment on above:Performed By: #### CBCA, CMP, 38773-2, 51548-7, TSHR, 27629-1, 2777-1, 2639-3, 2157-6, 3024-7 #### [facility] ([id number]) [address] [place] [address], [address] [place], [place] [address]YTN with Reflexon 82-21-3315Souvblogrkqqgu and review of laboratory resultsAbnormalFormerly [facility] Qn0.39 m[IU]/LLowProDayton Osteopathic HospitalProDayton Osteopathic HospitalVancomycin [Mass/Vol]on 74-43-3542JwqCrurkq Health LovfsiUMPLDCWYPW86.5 ug/mLNormal5.0-40.0German HospitalComment on above:Result Comment: Peak 30-40 ug/mL Trough 5-20 ug/ml Performed By: #### 25061-7 ####[facility] ([id number])[address] [place] [address], [address] [place] [address]PftBjnnhu Health MymdoaYIEXKCFNGT50.4 ug/mLNormal5.0-40.0German HospitalComment on above:Result Comment: Peak 30-40 ug/mL Trough 5-20 ug/ml Performed By: #### CBCSusie, CMP #### [facility] ([id number]) [address] [place] [address], [address] [place] [address]Zajzhsawpc, randomon 81-70-7651Lmgaukacqe [Mass/Vol]10.5 ug/mL 5.0 - 40.0 ug/mLAvita Health System Bucyrus Hospital Health SystemVancomycin [Mass/Vol]28.4 ug/mL5.0 - 40.0 ug/mLDetwiler Memorial Hospital SystemBLOOD CULTUREon 00-98-5102Ccfwlwvl identified Aer cx Nom (Bld)CULTURE RESULTS NO GROWTH 5 DAYSNoOhioHealth Pickerington Methodist HospitalBacteria identified Aer cx Nom (Bld)CULTURE RESULTS NO GROWTH 5 DAYSNormalProMedica Defiance Regional HospitalCBC AND AUTO DIFFon 11-04-2024 Band form neutrophils/100 WBC (Bld)5.0 %NormalProBig Bend Regional Medical CenterComment on above:Performed By: #### CBCA, CMP, 1987-5, 99293-6, 07667-6, 5643-2, 2157-03 #### [facility] ([id number]) [address] [place] [address]Andulbbwjkq distribution width (RBC) [Ratio]13.6 %Normal 11.5-15.0ProBig Bend Regional Medical CenterComment on above:Performed By: #### SYED RAPHAEL, 1988-02, , 12995-1, 5642-, 2157-03 #### [facility] ([id number]) [address] [place] [address]Dmshrnwdfz (Bld) [Volume fraction]40.2 %Srjanx48-60HkpQtaaasBig Bend Regional Medical CenterComment on above:Performed By: #### SYED RAPHAEL, 1988-02, , 87462-5, 5642-, 2157-03 #### [facility] ([id number]) [address] [place] [address]Smyxknmcft (Bld) [Mass/Vol]13.2 g/pPWrdhza72.7-15.5PDayton Osteopathic HospitalComment on above:Performed By: #### SYED RAPHAEL, 1988-02, , 70841-9, 5642-11, 2157-03 #### [facility] ([id number]) [address] [place] [address]Lubvjwkgylw (Bld) [#/Vol]0.8 10*3/uLLow1.0-3.5PDayton Osteopathic HospitalComment on above:Performed By: #### SYED RAPHAEL, 1988-02, , 24351- 0, 5642-2, 2157-03 #### [facility] ([id number]) [address] [place] [address]Bmlrmnmoeor/100 WBC (Bld)2.0 %NormalProBig Bend Regional Medical Center Comment on above:Performed By: #### SYED RAPHAEL, 1988-02, , 69329-3, 5643-2, 2157-03 #### [facility] ([id number]) [address] [place] [address]683OEV (RBC) [Entitic mass]29.5 voMqytcv92-51QylQygaerBig Bend Regional Medical CenterComment on above:Performed By: #### CBCSusie, SYED, 1988-02, , 69683-9, 5642-2, 2157-03 #### [facility] ([id number]) [address] [place] [address]XYNK (RBC) [Mass/Vol]32.9 g/lJOabzuh35-34PfvUbkghdBig Bend Regional Medical CenterComment on above:Performed By: #### SYED RAPHAEL, 1988-02, , 64720-6, 5642-11, 2157-03 #### [facility] ([id number]) [address] [place] [address] 23913WNP (RBC) [Entitic vol]90 hSMrauub92-880KawGiuzcp Fremont HospitalComment on above:Performed By: #### CBCSYED Richards, 1988-02, , 65411-7, 5642-11, 2157-03 #### [facility] ([id number]) [address] [place] [address]Jhkabkael (Bld) [#/Vol]3.6 10*3/uLHigh0-0.9ProMedica Defiance Regional HospitalComment on above:Performed By: #### CBCA, CMP, 1988-02, , 27404-4, 5642-, 2157-03 #### [facility] ([id number]) [address] [place] [address]Wmlpdbrkf/100 WBC (Bld)9.0 %NormalProBig Bend Regional Medical Center Comment on above:Performed By: #### CBCA, CMP, 1988-02, , 49602-8, 5643-2, 2157-03 #### [facility] ([id number]) [address] [place] [address]Snhuhyunqwc (Bld) [#/Vol]35.8 10*3/uLHigh1.5-6.6ProBig Bend Regional Medical CenterComment on above:Performed By: #### SYED RAPHAEL, 1988-02, , 22720-6, 5643-2, 2157-03 #### [facility] ([id number]) [address] [place] [address]YUYJYZBPI RBC1.0 /100 WBCNormal0.0-1.0ProBig Bend Regional Medical CenterComment on above:Performed By: #### SYED RAPHAEL, 1988-02, , 60874-1, 5642-, 2157-03 #### [facility] ([id number]) [address] [place] [address]Fdcbedxt mean volume (Bld) [Entitic vol]7.6 fLNormal7-12 ProMHenry Mayo Newhall Memorial HospitalComment on above:Performed By: #### SYED RAPHAEL, 1988-02, , 38370-0, 5642-, 2157-03 #### [facility] ([id number]) [address] [place] [address] 10537Slhovnctz (Bld) [#/Vol]344 10*3/uRAenlgc117-742NraHdprff Fremont HospitalComment on above:Performed By: #### SYED RAPHAEL, 1988-02, , 00697-3, 5642-11, 2157-03 #### [facility] ([id number]) [address] [place] [address] 20794RAIKAOCJTXQVY0+AbnormalNONEProMedica Bellwood General HospitalComment on above:Performed By: #### SYED RAPHAEL, 1988-02, , 44175-1, 5643-2, 2157-03 #### [facility] ([id number]) [address] [place] [address] 73599VOG COUNT4.47 X10E12/LNormal3.80-5.20Pro[facility] Comment on above:Performed By: #### IJEOMA, SYED, 1988-02, , 45719-6, 5643-2, 2157-03 #### [facility] ([id number]) [address] [place] [address]69[address]VWF TOCASDMTUF63.0 %NormalProBig Bend Regional Medical CenterComment on above:Performed By: #### SYED RAPHAEL, 1988-02, , 75369-9, 5642-2, 2157-03 #### [facility] ([id number]) [address] [place] [address] 46436RDD (Bld) [#/Vol]40.2 10*3/uLHigh4.0-11.0ProBig Bend Regional Medical CenterComment on above:Performed By: #### IJEOMA, SYED, 1988-02, , 53191-7, 5642-2, 2157-03 #### [facility] ([id number]) [address] [place] [address]36[address]NU [Catalytic activity/Vol]on 46-56-8366WSN13384 U/AKvun24-287 ProMedica Defiance Regional HospitalComment on above:Performed By: #### IJEOMA, CMP, 1988-02, , 85699-4, 5643-2, 2157-03 #### [facility] ([id number]) [address] [place] [address] 76705LSDVLIJCROEWE METABOLIC PANELon 50-79-2855Hwtlzjo [Mass/Vol]4.5 g/dLNormal3.2-5.3ProMedica Saginaw HospitalComment on above:Performed By: #### SYED RAPHAEL, 1988-02, , 77362-7, 5643-2, 2157-03 #### [facility] ([id number]) [address] [place] [address] 36348TLZ [Catalytic activity/Vol]96 U/NZuktff64-542JcjToqqulBig Bend Regional Medical CenterComment on above:Performed By: #### SYED RAPHAEL, 1988-02, , 56273-3, 5643-2, 2157-03 #### [facility] ([id number]) [address] [place] [address], [place] [address]TAX [Catalytic activity/Vol]122 U/LHigh0-31PDayton Osteopathic HospitalComment on above:Performed By: #### SYED RAPHAEL, 1988-02, , 24978-0, 5642-2, 2157-03 #### [facility] ([id number]) [address] [place] [address] 77[address]Ylxhz gap [Moles/Vol]12 mmol/LNormal5-15ProBig Bend Regional Medical CenterComment on above:Performed By: #### SYED RAPHAEL, 1988-02, , 56731-0, 5642-2, 2157-03 #### [facility] ([id number]) [address] [place] [address] 23890EVP [Catalytic activity/Vol]356 U/LHigh0-41ProBig Bend Regional Medical CenterComment on above:Performed By: #### SYED RAPHAEL, 1988-02, , 46437-6, 5642-2, 2157-03 #### [facility] ([id number]) [address] [place] [address] 11506Jmrtyskeb [Mass/Vol]0.6 mg/dLNormal0.3-1.2Pro[facility]ica [facility]agin[facility] HospitalComment on above:Performed By: #### SYED RAPHAEL, 1988-02, , 79133-2, 5642-2, 2157-03 #### [facility] ([id number]) [address] [place] [address] 47017Xayufes [Mass/Vol]8.2 mg/dLLow8.5-10.5PDayton Osteopathic HospitalComment on above:Performed By: #### SYED RAPHAEL, 1988-02, , 96423-9, 2, 2157-03 #### [facility] ([id number]) [address] [place] [address] 92826Pfgnxzxi [Moles/Vol]99 mmol/WUdheen55-989NriGnvtcvBig Bend Regional Medical CenterComment on above:Performed By: #### SYED RAPHAEL, 1988-02, , 56098-9, 5642-11, 2157-03 #### [facility] ([id number]) [address] [place] [address] 24285XD6 [Moles/Vol]19 mmol/BYii22-09CdiPiujobDayton Osteopathic Hospital Comment on above:Performed By: #### SYED RAPHAEL, 1988-02, , 27738-7, 5642-11, 2157-03 #### [facility] ([id number]) [address] [place] [address] 07884Gfxqqhiviu [Mass/Vol]1.88 mg/dLHigh0.40-1.00Pro[facility]ica [facility] Regional HospitalComment on above:Result Comment: METHOD TRACEABLE TO IDMS STANDARD Performed By: #### SYED RAPHAEL, 1988-02, , 63118-2, 5642-11, 2157-03 #### [facility] ([id number]) [address] [place] [address] 61966JZP/1.73 sq M.predicted among non-blacks MDRD (S/P/Bld) [Vol rate/Area]38 mL/min/{1.73_m2}Low>59ProBig Bend Regional Medical CenterComment on above: Result Comment: Reported eGFR is based on the CKD-EPI 2020 equation that does not use a race coefficient.Performed By: #### SYED RAPHAEL, 1988-02, , 78180- 0, 5642-11, 2157-03 #### [facility] ([id number]) [address] [place] [address] 88212Jmcbbdo [Mass/Vol]88 mg/nCAitatl29-28PcxTudgcaProMedica Defiance Regional Hospital Comment on above:Performed By: #### SYED RAPHAEL, 1988-02, , 33763-7, 5642-11, 2157-03 #### [facility] ([id number]) [address] [place] [address] 67750Zzmpbhepp [Moles/Vol]2.8 mmol/LLow3.5-5.0ProBig Bend Regional Medical CenterComment on above:Performed By: #### SYED RAPHAEL, 1988-02, , 74012-6, 5642-11, 2157-03 #### [facility] ([id number]) [address] [place] [address] 37652Dicfuqj [Mass/Vol]8.2 g/dLHigh6.0-8.0[facility] Comment on above:Performed By: #### SYED RAPHAEL, 1988-02, , 80989-4, 5642-11, 2157-03 #### [facility] ([id number]) [address] [place] [address] 56011Qrpkhq [Moles/Vol]130 mmol/JUsy880-626FvmWspovmBig Bend Regional Medical CenterComment on above:Performed By: #### SYED RAPHAEL, 1988-02, , 75740-1, 5642-11, 2157-03 #### [facility] ([id number]) [address] [facility], [place], [place] [address]Mhmv nitrogen [Mass/Vol]27 mg/dLHigh5-23Pro[facility]wood [facility] HospitalComment on above:Performed By: #### CBCA, CMP, 1988-02, 08251-3, 02056-6, 5643-2, 7-6 #### [facility] ([id number]) [address] [facility], [place], [place] [address]UHU [Mass/Vol]on 11-04-2024 REACTIVE PROTEIN1.2 mg/dLHigh 0.000-0.744Pro[facility]wood [facility] HospitalComment on above:Performed By: #### CBCA, CMP, 1988-02, , 28156-3, 5643-2, 2157-03 #### [facility] ([id number]) [address] [facility], [place], [place] [address]VB ABDOMEN AND PELVIS WO CONTon 65-26-5244IH ABDOMEN AND PELVIS WO CONTCT ABDOMEN AND [...] by Rohit Villarreal MD on 11/04/2024 8:25 PMNormalProMedica Defiance Regional HospitalCT BRAIN WO CONTon 58-36-3127TJ BRAIN WO CONTCT BRAIN WO CONT EXAM:CT [...] Finalized by Subhash Colon on 11/04/2024 6:54 PMNormalProMedica [facility] ETHANOLon 96-08-5936Pnnipie [Mass/Vol]mg/dLNormal0.00-0.08Pro[facility]ica Defiance Regional HospitalComment on above:Result Comment: This report is intended for use in clinical monitoring or management of patients.Performed By: #### SYED RAPHAEL, 1988-02, 12084-1, 32465-4, 5643-2, 2157-03 #### [facility] ([id number]) [address] [place] [address] 79739HLX ( test) Ql (U)on 36-48-7728Qpnn HCG ( test) Ql (U)NegativeNormalNEGProMedica Defiance Regional HospitalComment on above: Performed By: #### SYED RAPHAEL, 1988-02, , 08635-5, 5643-2, 2157-03 #### [facility] ([id number]) [address] [place] [address] 24024Qvjtnmx (P nancy) [Moles/Vol]on 24-05-2614Fglgmaf [Moles/Vol]1.2 mmol/LNormal0.4-2.0ProBig Bend Regional Medical CenterComment on above:Performed By: #### SYED RAPHAEL, 1988-02, , 51086-7, 5642-2, 2157-03 #### [facility] ([id number]) [address] [place] [address] 06778KIJIPOR W/REFLEX2.9 mmol/LHigh0.4-2.0[facility] Comment on above:Performed By: #### 31920-3 #### [facility] ([id number]) [address] [place] [address] 42431NMLEKVORInf 16-46-1430Qcvnmeecr [Mass/Vol]2.8 mg/dLHigh1.8-2.6 ProMHenry Mayo [facility]hall Memorial HospitalComment on above:Performed By: #### SYED RAPHAEL, 1988-02, , 93216-9, 5642-11, 2157-03 #### [facility] ([id number]) [address] [place] [address]35[address]Bojdtbjoobhfd IA [Mass/Vol]on 12-66-8270JGJHBBVNMITGC71.05 ng/mLHigh<0.05ProBig Bend Regional Medical CenterComment on above:Result Comment: NOTE <0.50 ng/mL - Low risk of severe sepsis and/or septic shock. <2.00 ng/mL - Recommend retesting within 6-24 hours. >2.00 ng/mL - High risk of sepsis and/or septic shock.Performed By: #### SYED RAPHAEL, 1988-02, , 95476-8, 56-2, 2157-03 #### [facility] ([id number]) [address] [place] [address] 59385EGOR/FLU A+B/RSV by NAAT/Molecularon 45-03-9441LITT/FLU A+B/RSV by NAAT/MolecularFLU A PCR Negative (qualifier [...] operators who are performing tests using either [employer] or [employer] systems and is limited to laboratories that [...] specimen repeat. Fact Sheet for Healthcare Providers: https://www.fda.gov/media/241512/download Fact Sheet for Patients: https://www.fda.gov/media/544927/downloadNormalProMedica Bellwood General HospitalComment on above:Performed By: #### COVFLR #### [facility] ([id number]) [address] [place] [address], FIRST FLOOR [address] CULTUREon 47-07-3473Cfyqoils identified Cx Nom (U)CULTURE RESULTS 10,000 to 50,000 ORGANISMS/mL NORMAL URO GENITAL FLORANormalProBig Bend Regional Medical CenterComment on above: Performed By: #### SYED RAPHAEL, 1988-02, , 49735-6, 5643-2, 2157-03 #### [facility] ([id number]) [address] [place] [address] [place] [address]GKR MACROSCOPIC NURon 12-81-2363TUCWBBDBA NURNegativeNormalNEG [facility] HospitalComment on above:Performed By: #### SYED RAPHAEL, 1988-02, , 47925-4, 5643-2, 2157-03 #### [facility] ([id number]) [address] [place] [address] [place] [address]GUOAQ/HGB NURLargeAbnormalNEGProBig Bend Regional Medical CenterComment on above:Performed By: #### SYED RAPHAEL, 1988-02, , 80835-7, 5643-2, 2157-03 #### [facility] ([id number]) [address] [place] [address] [place] [address]NZVKWXK NURNegativeNormalNEGProBig Bend Regional Medical CenterComment on above:Performed By: #### SYED RAPHAEL, 1988-02, , 84119-3, 5643-2, 2157-03 #### [facility] ([id number]) [address] [place] [address] [place] [address]BELPMDJ NURNegativeNormalNEGProBig Bend Regional Medical CenterComment on above:Performed By: #### SYED RAPHAEL, 1988-02, , 41971-3, 5643-2, 2157-03 #### [facility] ([id number]) [address] [place] [address] [place] [address]KPWRBOMGE ESTERASE NURTraceAbnormalNEGProBig Bend Regional Medical CenterComment on above:Performed By: #### IJEOMA, SYED, 1988-02, , 56759-7, 5643-2, 2157-03 #### [facility] ([id number]) [address] [place] [address] 05357ZXYQIGA NURNegativeNormalNEGProMedica Defiance Regional HospitalComment on above:Performed By: #### IJEOMA, SYED, 1988-02, , 28793-1, 5643-2, 2157-03 #### [facility] ([id number]) [address] [place] [address] 207[address]YV NUR5.8Gugiim9.0-8.5PDayton Osteopathic HospitalComment on above:Performed By: #### SYED RAPHAEL, 1988-02, , 85440-6, 5642-2, 2157-03 #### [facility] ([id number]) [address] [place] [address] 55657PBDDQTP PNC302 mg/dLAbnormalNEGProMedica [facility] Comment on above:Performed By: #### SYED RAPHAEL, 1988-02, , 60815-4, 5642-2, 2157-03 #### [facility] ([id number]) [address] [place] [address] 24670QEFLLATC GRAVITY NUR1.331Meyhgt6.003-1.035ProBig Bend Regional Medical CenterComment on above:Performed By: #### SYED RAPHAEL, 1988-02, , 25425-5, 5643-2, 2157-03 #### [facility] ([id number]) [address] [place] [address] 24[address]WOJSFVAUMSLO NUR0.2 eu/dLNormal<1.1PDayton Osteopathic Hospital Comment on above:Performed By: #### SYED RAPHAEL, 1988-02, , 89342-4, 5643-2, 6 #### [facility] ([id number]) [address] [facility], [place], [place] [address]XQ CHEST 1 VWon 69-94-9525TI CHEST 1 VWXR CHEST 1 VW XR [...] Kane Burger MD on 11/04/2024 9:06 PMNormalProMedica Bellwood General HospitallamoTRIgine [Mass/Vol]on 71-20-9588Jldwkcpqkzw, S0.9 mcg/mLLow3.0-15.0 ProMHenry [facility] HospitalComment on above:Result Comment: NOTE ADDITIONAL INFORMATION This test was developed and its performance characteristics determined by [facility] in a manner consistent with CLIA requirements. This test has not been cleared or approved by the U.S. Food and Drug Administration. Test Performed by: [facility] [address] [place] [address] Compliance Nurse: Ulysses Juarez Ph.D.; CLIA# [id number] By: #### CBCA, [facility], 1987-, 02359-3, 85434-5, 5643-2, 2157-03 #### [facility] ([id number]) [address] [place], [place] [address]kdwOLYVShafxs [Mass/Vol]on 22-10-4550Zkurgtevcgxqw, S1.6 mcg/mL Low10.0 - 40.0ProBig Bend Regional Medical CenterComment on above:Result Comment: NOTE ADDITIONAL INFORMATION This test was developed and its performance characteristics determined by [facility] in a manner consistent with CLIA requirements. This test has not been cleared or approved by the U.S. Food and Drug Administration. Test Performed by: [facility] [address] [place] [address] Compliance Nurse: Ulysses Juarez Ph.D.; CLIA# [id number] By: #### SYED RAPHAEL, 1988-02, 73396-0, 93465-3, 5643-2, 2157-6 #### [facility] ([id number]) [address] [place] [address], [place], [place] [address]WJC AND AUTO DIFFon 23-12-6931JKQYILCC BASOPHIL0.1 X10E9/L Normal0.0-0.2ProMedica [facility] HospitalComment on above:Performed By: #### CBCSusie, CMP #### [facility] ([id number]) [address] [facility], [address] [place], [place] [address]RCZNEYNI NEUTROPHIL7.8 X10E9/LHigh1.5-6.6ProPremier HealthComment on above:Performed By: #### CBCSusie, CMP #### [facility] ([id number]) [address], [address] [place], [place] [address]Zlcomijxf/100 WBC (Bld)1.3 %NormalGerman Hospital Comment on above:Performed By: #### CBCA, CMP #### [facility] ([id number]) [address], [address] [place], [place] [address]Jhbvzkmazgn (Bld) [#/Vol]0.4 10*3/uLNormal0.0-0.4ProSelect Medical [facility] Rehabilitation Hospital - Dublinca Saltese HospitalComment on above:Performed By: #### CBCA, CMP #### [facility] ([id number]) [address], [address] [place], [place] [address]Sffgpmkcgal/100 WBC (Bld)3.3 %NormalGerman Hospital Comment on above:Performed By: #### CBCA, CMP #### [facility] ([id number]) [address], [address] [place], [place] [address]Vgftyezfkvc distribution width (RBC) [Ratio]13.4 %Normal 11.5-15.0ProDiley Ridge Medical Center HospitalComment on above:Performed By: #### CBCA, CMP #### [facility] ([id number]) [address], [address] [place], [place] [address]Voxgzmuaxr (Bld) [Volume fraction]39.8 %Zpokod43-58VhfShvjkx [facility] HospitalComment on above:Performed By: #### CBCA, CMP #### [facility] ([id number]) [address], [address] [place], [place] [address]Frwioikyba (Bld) [Mass/Vol]13.3 g/tUZnabhb29.7-15.5ProMedParkwood Hospital HospitalComment on above:Performed By: #### CBCA, CMP #### [facility] ([id number]) [address], [address] [place], [place] [address]Vzvissfiiyd (Bld) [#/Vol]2.4 10*3/uLNormal1.0-3.5ProMedica Saltese HospitalComment on above:Performed By: #### CBCA, CMP #### [facility] ([id number]) [address], [address] [place], [place] [address]Cswkqeukxmv/100 WBC (Bld)21.2 %NormalGerman Hospital Comment on above:Performed By: #### CBCA, CMP #### [facility] ([id number]) [address], [address] [place], [place] [address]YJZ (RBC) [Entitic mass]30.0 stHemcqb30-24TnpNidokm Saltese HospitalComment on above:Performed By: #### CBCA, CMP #### [facility] ([id number]) [address], [address] [place], [place] [address]JVSO (RBC) [Mass/Vol]33.5 g/gTCueiei06-09ZaiCnbezp Salt[facility] HospitalComment on above:Performed By: #### CBCA, CMP #### [facility] ([id number]) [address], [address] [place], [place] [address]LST (RBC) [Entitic vol]89 vZQjoeii02-747IweAhekur Saltese HospitalComment on above:Performed By: #### CBCA, CMP #### [facility] ([id number]) [address], [address] [place], [place] [address]Srovpktnt (Bld) [#/Vol]0.7 10*3/uLNormal0-0.9ProDiley Ridge Medical Center HospitalComment on above:Performed By: #### CBCA, CMP #### [facility] ([id number]) [address], [address] [place], [place] [address]Lghqzxtgm/100 WBC (Bld)6.3 %NormalGerman Hospital Comment on above:Performed By: #### CBCA, CMP #### [facility] ([id number]) [address], [address] [place], [place] [address]Sphhsnaayzn/100 WBC (Bld)67.9 %NormalGerman Hospital Comment on above:Performed By: #### CBCA, CMP #### [facility] ([id number]) [address], [address] [place], [place] [address]Tmofojmk mean volume (Bld) [Entitic vol]7.7 fLNormal7-12 ProMmarshall medical center southa Saltese HospitalComment on above:Performed By: #### IJEOMA, CMP #### [facility] ([id number]) [address], [address] [place], [place] [address]Iwauczudg (Bld) [#/Vol]333 10*3/bVHrlpsm026-676BpkCmiokd Hassan HospitalComment on above:Performed By: #### CBCSusei, CMP #### [facility] ([id number]) [address], [address] [place], [place] [address]RMW COUNT4.45 X10E12/LNormal3.80-5.20ProDiley Ridge Medical Center Hospital Comment on above:Performed By: #### IJEOMA, CMP #### [facility] ([id number]) [address], [address] [place], [place] [address]HPP (Bld) [#/Vol]11.4 10*3/uLHigh4.0-11.0ProSelect Medical [facility] Rehabilitation Hospital - Dublinca Saltese HospitalComment on above:Performed By: #### IJEOMA, CMP #### [facility] ([id number]) [address], [address] [place], [place] [address]SUTZHQNCXEKUA METABOLIC PANELon 65-73-8395Tyahzai [Mass/Vol]4.4 g/dLNormal3.2-5.3ProMedParkwood Hospital HospitalComment on above:Performed By: #### CBCSusie, CMP #### [facility] ([id number]) [address], [address] [place], [place] [address]CKV [Catalytic activity/Vol]87 U/OSoiglr44-791LawHqrzkx Hassan HospitalComment on above:Performed By: #### CBCA, CMP #### [facility] ([id number]) [address], [address] [place], [place] [address]KTQ [Catalytic activity/Vol]17 U/LNormal0-31ProMedParkwood Hospital HospitalComment on above:Performed By: #### CBCA, CMP #### [facility] ([id number]) [address], [address] [place], [place] [address]Gszdl gap [Moles/Vol]11 mmol/LNormal5-15ProMedica Hassan HospitalComment on above:Performed By: #### CBCA, CMP #### [facility] ([id number]) [address], [address] [place], [place] [address]KWA [Catalytic activity/Vol]15 U/LNormal0-41ProMediRegency Hospital [facility] West HospitalComment on above:Performed By: #### CBCSusie, CMP #### [facility] ([id number]) [address], [address] [place], [place] [address]Evitikexg [Mass/Vol]0.2 mg/dLLow0.3-1.2PWVUMedicine Harrison Community Hospital Comment on above:Performed By: #### CBCSusie, CMP #### [facility] ([id number]) [address], [address] [place], [place] [address]Snrevhf [Mass/Vol]9.4 mg/dLNormal8.5-10.5PFostoria City Hospital HospitalComment on above:Performed By: #### CBCA, CMP #### [facility] ([id number]) [address], [address] [place], [place] [address]Ynphiiuq [Moles/Vol]100 mmol/LTegtnq61-806EctDumtxj [facility] HospitalComment on above:Performed By: #### CBCA, CMP #### [facility] ([id number]) [address], [address] [place], [place] [address]HA6 [Moles/Vol]29 mmol/WZgchxm80-77ErsZeobphWVUMedicine Harrison Community Hospital Comment on above:Performed By: #### CBCA, CMP #### [facility] ([id number]) [address], [address] [place], [place] [address]Ysttezvpmv [Mass/Vol]0.64 mg/dLNormal0.40-1.00ProPremier HealthComment on above:Result Comment: METHOD TRACEABLE TO IDMS STANDARD Performed By: #### IJEOMA, CMP #### [facility] ([id number]) [address], [address] [place], [place] [address]xJXA (CKD-EPI) NON-RACE DEPENDENT>90Normal>59ProDiley Ridge Medical Center HospitalComment on above:Result Comment: Reported eGFR is based on the CKD-EPI 2020 equation that does not use a race coefficient.Performed By: #### IJEOMA, CMP #### [facility] ([id number]) [address], [address] [place], [place] [address]Yqktwit [Mass/Vol]73 mg/sMRoyjcl96-71TmkLmperg [facility] Comment on above:Performed By: #### IJEOMA, CMP #### [facility] ([id number]) [address], [address] [place], [place] [address]Urprnfcxs [Moles/Vol]4.3 mmol/LNormal3.5-5.0ProPremier HealthComment on above:Performed By: #### IJEOMA, CMP #### [facility] ([id number]) [address], [address] [place], [place] [address]Fgauwph [Mass/Vol]7.3 g/dLNormal6.0-8.0ProPremier Health Comment on above:Performed By: #### CBCSusie, CMP #### [facility] ([id number]) [address], [address] [place], [place] [address]Eoxaiw [Moles/Vol]140 mmol/RYpktna388-817JkaHgazvn [facility] HospitalComment on above:Performed By: #### CBCA, CMP #### [facility] ([id number]) [address], [address] [place], [place] [address]Ivro nitrogen [Mass/Vol]12 mg/dLNormal5-23ProMedica [facility] HospitalComment on above:Performed By: #### CBCA, CMP #### [facility] ([id number]) [address] [facility], [address] [place], [place] [address]Hyefickxkxk [Mass/volume] in Serum or PlasmaOrdered By: Obie Harley on 71-41-5539Fntjuatajzr [Mass/Vol]198 mg/kX121-302XxpismynnBerger HospitalComment on above:Chol less than 200 mg/dl low riskChol 201-239 mg/dl borderline riskChol 240 mg/dl and greater high riskCholesterol in LDL Calc [Mass/Vol]Ordered By: Obie Harley on 95-90-3250Rvuwgznlwcp in LDL [Mass/Vol] 107 mg/dLHigh0-100Berger HospitalComment on above:LDL ATP III CLASSIFICATIONLDL less than 100 mg/dL OptimalLDL 100-129 mg/dL Near or above yomptgrHDV004-062 mg/dL Borderline highLDL 160-189 mg/dL HighLDL greater than 189 mg/dL Very highCholesterol in VLDL Calc [Mass/Vol]Ordered By: Obie Harley on 72-49-7808Kkmkvhkwpwh in VLDL [Mass/Vol]17 mg/dLSuburban Community Hospital & Brentwood Hospitalerum or plasma high density lipoprotein (HDL) cholesterol measurement Ordered By: Obie Harley on 68-26-6161Repocwcefvy in HDL [Mass/Vol]74 mg/dL 23-92Berger HospitalComment on above:HDL CHOL ATP-III CLASSIFICATION Cardiovascular RiskHDL > or equal to 60 mg/dL LOWHDL < 40 mg/dL HIGHSerum or plasma total cholesterol/high density lipoprotein (HDL) cholesterol mass ratOrdered By: Obie Harley on 76-49-0513Rqcuttgsvmu.total/Cholesterol in HDL [Mass ratio]2.7 {ratio}<5.0Berger HospitalThyrotropin [Units/volume] in Serum or PlasmaOrdered By: Obie Harley on 03-09-1839ICE Qn 0.78 m[IU]/L0.45-5.33Berger HospitalTriglyceride [Mass/volume] in Serum or PlasmaOrdered By: Obie Harley on 14-14-4276Mjvdjouacpxb [Mass/Vol]85 mg/dL0-149Berger HospitalComment on above:TRIG ATP III CLASSIFICATIONTRIG less than 150 mg/dL NormalTRIG 150-199 mg/dL Borderline highTRIG 200-500 mg/dL High TRIG greater than 500 mg/dL Very highStandard traceable to the Center for Disease Conrtrol and Prevention (CDC) test method.Vitamin D+Metabolites [Mass/volume] in Serum or PlasmaOrdered By: Obie Harley on 19-09-9513Ofbgdac D+Metabolites [Mass/Vol]21.8 ng/lCWjf24-151 Berger HospitalComment on above:VITAMIN D STATUS 25(OH)VITAMIN D RANGE (ng/mL) Deficient <20 Insufficient 20 to <74Btegemazjn98 to 100Reference: Costa MF,Woo NC, Yvrose GRIDER, et al. Evaluation,treatment, and prevention of vitamin D deficiency; an Endocrine Society clinical practice guideline. JCEM. 2010; 96(7):1911-30.Sleep Deprived EEGon 59-34-4863Elhmsd from the original result were not included. [...] RESULTSSleep Deprived EEGOrdered By: Brisa Sanchez on 83-51-8392BuoTkhgps Health System Work Phone: EDPROVon [phone] Chief Complaint Patient presents with Back Pain [...] and discharge. Lilian Ellington (more content not included)...NormalUnSt. Vincent HospitalAMYLASEon 82-62-8424Nhboisi [Catalytic activity/Vol]56 U/FIresdu49-633Bdy [facility] HospitalComment on above:Performed By: #### LIAN, CMP, LIPA #### [facility] [address] [address] [address] Hanh Camara AUTO DIFFon 07-76-2047XRRW #0.1 103/ulNormal0.0-0.1The [facility] HospitalComment on above:Performed By: #### CBC #### [facility] [address] [address] [address] Hanh Waresophils/100 WBC (Bld)0.5 %Normal0.2-2.0[facility] Comment on above:Performed By: #### CBC #### [facility] [address] [address] [address] Hanh Valdovinos #0.1 103/ulNormal0.0-0.7The [facility] HospitalComment on above: Performed By: #### CBC #### [facility] [address] [place] [address] Dr. Hanh Davidsonosinophils/100 WBC (Bld)0.5 %Critically low0.9-7.0The [facility]itan HospitalComment on above:Performed By: #### CBC #### [facility] [address] [place] [address] Dr. Hanh Davidsonrythrocyte distribution width (RBC) [Ratio]12.4 %Ekzylk30.0-15.0 The [facility]aritan HospitalComment on above:Performed By: #### CBC #### [facility] [address] [place] [address] Dr. Hanh CervantesHematocrit (Bld) [Volume fraction]42.1 %Qocbdc18.0-48.0The [facility] HospitalComment on above:Performed By: #### CBC #### [facility] [address] [place] [address] Dr. Hanh CervantesHemoglobin (Bld) [Mass/Vol]14.3 g/zVWzidgy37.0-16.0The [facility] on above:Performed By: #### CBC #### [facility] [address] [place] [address] Dr. Hanh Brooks #0.04 10e3/ulCritically high0.00-0.03The [facility] Comment on above:Performed By: #### CBC #### [facility] [address] [place] [address] Dr. Hanh Brooks %0.3 %Normal0.0-0.5The [facility] above: Performed By: #### CBC #### [facility] [address] [place] [address] Dr. Hanh GarcíaH #1.1 103/ulCritically low1.2-3.8The [facility] Comment on above:Performed By: #### CBC #### [facility] [address] [place] [address] Dr. Hanh Hollowaymphocytes/100 WBC (Bld)9.7 %Critically low20.5-60.0[facility] on above:Performed By: #### CBC #### [facility] [address] [place] [address] Dr. Hanh Calzada DIFF REQNONormalThe [facility] HospitalComment on above: Performed By: #### CBC #### [facility] [address] [place] [address] Dr. Hanh Salazar (RBC) [Entitic mass]28.9 hrEwyvax17.7-34.0[facility] on above:Performed By: #### CBC #### [facility] [address] [place] [address] Dr. Hanh Salazar (RBC) [Mass/Vol]34.0 g/nJFvwowi24.9-35.2[facility] on above:Performed By: #### CBC #### [facility] [address] [place] [address] Dr. Hanh Salazar (RBC) [Entitic vol]85.2 nVXbbrde99.0-99.0[facility] on above:Performed By: #### CBC #### [facility] [address] [place] [address] Dr. Hanh العراقي #0.5 103/ulNormal0.3-0.8[facility] on above:Performed By: #### CBC #### [facility] [address] [place] [address] Dr. Hanh Reneeocytes/100 WBC (Bld)4.4 %Normal1.7-12.0[facility] Comment on above:Performed By: #### CBC #### [facility] [address] [place] [address] Dr. Hanh Henderson #9.9 103/ulCritically high1.4-6.5The [facility] Comment on above:Performed By: #### CBC #### [facility] [address] [place] [address] Dr. Hanh CervantesNeutrophils/100 WBC (Bld)84.6 %Critically high43.0-75.0The [facility] on above:Performed By: #### CBC #### [facility] [address] [place] [address] Dr. Hanh CervantesPlatelet mean volume (Bld) [Entitic vol]10.1 fLNormal9.5-13.5The [facility] HospitalCommymichigan medical center [facility] on above:Performed By: #### CBC #### [facility] [address] [place] [address] Dr. Hanh CervantesPLT368 103/rzGuibks559-527Vyn [facility] on above: Performed By: #### CBC #### [facility] [address] [place] [address] Dr. Hanh CervantesRBC4.94 106/ulNormal4.20-5.40The [facility] on above:Performed By: #### CBC #### [facility] [address] [place] [address] Dr. Hanh CervantesWBC11.7 103/ulCritically high4.0-11.0The [facility] on above:Performed By: #### CBC #### [facility] [address] [place] [address] Dr. Hanh CervantesLIPASEon 96-99-5903Egmumo [Catalytic activity/Vol]82.0 U/LNormal 73.0-393.0The [facility] on above:Performed By: #### LIAN, CMP, LIPA #### [facility] [address] [place] [address] Dr. Hanh CervantesPROF 14(COMP METB)on 16-65-3260Fkwlnrt [Mass/Vol]4.6 g/dLNormal 3.4-5.0The [facility] on above:Performed By: #### LIAN, CMP, LIPA #### [facility] [address] [place] [address] Dr. Hanh CervantesAlbumin/Globulin [Mass ratio]1.1 {ratio}NormalThe [facility] HospitalComment on above:Performed By: #### LIAN, CMP, LIPA #### [facility] [address] [place] [address] Dr. Hanh Hurd [Catalytic activity/Vol]88 U/ZSvvlnp88-151Rgm [facility] HospitalComment on above:Performed By: #### LIAN, CMP, LIPA #### [facility] [address] [place] [address] Dr. Hanh Garcia [Catalytic activity/Vol]45 U/POhkdvj27-86Nev [facility] HospitalComment on above:Performed By: #### LIAN, CMP, LIPA #### [facility] [address] [place] [address] Dr. Hanh Braron gap [Moles/Vol]14.7 mmol/LNormalThe [facility] Comment on above:Performed By: #### LIAN, CMP, LIPA #### [facility] [address] [place] [address] Dr. Hanh Oakley [Catalytic activity/Vol]24 U/SAidztp75-15Sfv [facility] HospitalComment on above:Performed By: #### LIAN, CMP, LIPA #### [facility] [address] [place] [address] Dr. Hanh CervantesBilirubin [Mass/Vol]0.6 mg/dLNormal0.2-1.0The [facility] Comment on above:Performed By: #### LIAN, CMP, LIPA #### [facility] [address] [place] [address] Dr. Hanh CervantesCalcium [Mass/Vol]9.4 mg/dLNormal8.5-10.1The [facility] Comment on above:Performed By: #### LIAN, CMP, LIPA #### [facility] [address] [place] [address] Dr. Hanh CervantesChloride [Moles/Vol]100 mmol/WYcusom28-740Ccc [facility] Comment on above:Performed By: #### LIAN, CMP, LIPA #### [facility] [address] [address] [address] Hanh CervantesCO2 [Moles/Vol]25.9 mmol/ZMsaigu94.0-32.0The [facility] Comment on above:Performed By: #### LIAN, CMP, LIPA #### [facility] [address] [address] [address] Hanh CervantesCreatinine [Mass/Vol]0.78 mg/dLNormal0.55-1.02The [facility] HospitalComment on above:Performed By: #### LIAN, CMP, LIPA #### [facility] [address] [address] [address] Hanh DavidsonGFR-AF PUERTO RICAN>60Normal>=60The [facility] HospitalComment on above:Performed By: #### LIAN, CMP, LIPA #### [facility] [address] [place] [address] Dr. Hanh DavidsonGFR-NON AF PUERTO RICAN>60Normal>=60The [facility] HospitalComment on above:Performed By: #### LIAN, CMP, LIPA #### [facility] [address] [address] [address] Hanh CervantesGlobulin (S) [Mass/Vol]4.3 g/dLNormalThe [facility] HospitalComment on above:Performed By: #### LIAN, CMP, LIPA #### [facility] [address] [place] [address] Dr. Hanh CervantesGlucose [Mass/Vol]117 mg/dLCritically tpix28-809Uva [facility] HospitalComment on above:Performed By: #### LIAN, CMP, LIPA #### [facility] [address] [place] [address] Dr. Hanh CeravntesPotassium [Moles/Vol]3.6 mmol/LNormal3.5-5.1The [facility] Comment on above:Performed By: #### LIAN, CMP, LIPA #### [facility] [address] [place] [address] Dr. Hanh CervantesProtein [Mass/Vol]8.9 g/dLCritically high6.4-8.2The [facility] HospitalComment on above:Performed By: #### LIAN, CMP, LIPA #### [facility] [address] [address] [address] Hanh CervantesSodium [Moles/Vol]137 mmol/EEosrpj790-934Vgf [facility] Comment on above:Performed By: #### LIAN, CMP, LIPA #### [facility] [address] [address] [address] Hanh Hernandez nitrogen [Mass/Vol]9.0 mg/dLNormal7.0-18.0The [facility] HospitalComment on above:Performed By: #### LIAN, CMP, LIPA #### [facility] [address] [address] [address] Hanh Hernandez nitrogen/Creatinine [Mass ratio]11.5 mg/mgNormalThe [facility] HospitalComment on above:Performed By: #### LIAN, CMP, LIPA #### [facility] [address] [address] [address] Hanh Cervantes Vital Signs Date TimeVital SignValuePerforming ZavqvxpnwVkvdtrbl95-71-7064 11:40-0400 Diastolic blood mm[Hg]Muhamid Hugo ND Work Phone: [facility]09-16-2025 11:40-0400Systolic blood wofrrqdj863 mm[Hg]Muhamid Hugo ND Work Phone: [facility]09-16-2025 11:34-0400Body wanwfs289 cmMuhamid Hugo ND Work Phone: [facility]09-16-2025 11:34-0400Body mass index (BMI) [Ratio]35.43 kg/k9Lbfvsai Hugo ND Work Phone: [facility]09-16-2025 11:34-0400Body xmhkgehatfs76.2 [degF]Muhamid Hugo ND Work Phone: [facility]09-16-2025 11:34-0400Body zwpacx66.72 kgMuhamid Hugo ND Work Phone: [facility] CenterPayteller Magruder HospitalEjalwd71-03-0367 11:34-0400Heart rate82 /minMuhamid Hugo ND Work Phone: [facility]09-16-2025 11:34-0400 Respiratory rate20 /minMuhamid Hugo ND Work Phone: [facility]09-16-2025 11:34-2343ClZ7% (BldA) [Mass fraction]98 %Muhamid Hugo ND Work Phone: [facility]08-09-2025 17:45-0400Diastolic blood yoqawxya43 mm[Hg]Muhamid Hugo ND Work Phone: [facility]08-09-2025 17:45-0400Heart rate70 /minMuhamid Hugo ND Work Phone: [facility]08-09-2025 17:45-0400 Respiratory rate16 /minMuhamid Hugo ND Work Phone: [facility]08-09-2025 17:45-6028IsS0% (BldA) [Mass fraction]96 %Muhamid Hugo ND Work Phone: [facility]08-09-2025 17:45-0400Systolic blood ejvxlwvq074 mm[Hg]Muhamid Hugo ND Work Phone: [facility]08-09-2025 14:53-0400Body rdozclgddas431.4 [degF]Muhamid Hugo ND Work Phone: [facility]08-01-2025 10:47-0400Body xonnoo355 Emmylexjacques Lynch APRN-BEEF GRINDER Work Phone: [facility] [employer] Vnlmqz10-89-7148 10:47-0400Body mass index (BMI) [Ratio]34.52 kg/u7FvaowqyhnSharon Lynch AUTO TRAVEL COUNSELOR-BEEF GRINDER Work Phone: [facility] Jnghcw59-35-5169 10:47-0400Body uylttioiapy91.59 [degF]Sharon Lynch AUTO TRAVEL COUNSELOR-BEEF GRINDER Work Phone: [facility] [employer] Nqglzd91-75-2293 10:47-0400Body capavg90.36 kgAlecindy Lynch AUTO TRAVEL COUNSELOR-BEEF GRINDER Work Phone: [facility] [employer] Niwhev48-75-0574 10:47-0400Diastolic blood lwzclkgi72 mm[Hg]Sharon Lynch AUTO TRAVEL COUNSELOR-BEEF GRINDER Work Phone: [facility] Vhvxgz27-06-4312 10:47-0400Heart rate 76 /minAlecindy Lynch AUTO TRAVEL COUNSELOR-BEEF GRINDER Work Phone: [facility] [employer] Ekjayy58-82-8410 10:47-2751SpH9% (BldA) [Mass fraction]98 %Sharon Lynch AUTO TRAVEL COUNSELOR-BEEF GRINDER Work Phone: [facility] [employer] Bfygvy67-45-2520 10:47-0400Systolic blood ldyffghk617 mm[Hg]Sharon Lynch AUTO TRAVEL COUNSELOR-BEEF GRINDER Work Phone: [facility] Vorqua08-17-5601 13:39-0400Body iynnru877 cmAeloise Hines PA-C Work Phone: [facility] Yywiel74-00-5907 13:39-0400Body mass index (BMI) [Ratio]34.54 kg/a4OgyqdojBryant Hines PA-C Work Phone: [facility] Svlriq58-57-2865 13:39-0400Body tgwuuu45.45 kgBryant Hines PA-C Work Phone: [facility] Etiiub41-22-1807 13:39-0400Diastolic blood rgyxzwdq46 mm[Hg]Bryant Hines PA-C Work Phone: [facility] Jxxtig05-47-5796 13:39-0400Heart rate 72 /minBryant Hines PA-C Work Phone: [facility] Wjljqt11-75-6518 13:39-0400Systolic blood vbvyrfwy681 mm[Hg]Bryant Hines PA-C Work Phone: [facility]07-23-2025 16:00-0400Diastolic blood hutezqnn05 mm[Hg]Nancy Barnard MD Work Phone: [employer]07-23-2025 16:00-0400Heart rate87 /Alden Barnard MD Work Phone: [employer]07-23-2025 16:00-0400 Respiratory rate17 /Alden Barnard MD Work Phone: [employer]07-23-2025 16:00-0400Systolic blood osdjqgnt131 mm[Hg]Nancy Barnard MD Work Phone: [facility] [employer]07-23-2025 09:01-0400Body gbgwbytokjd29.59 [degF]Nancy Barnard MD Work Phone: [employer]07-23-2025 08:46-2343HkC2% (BldA) [Mass fraction]97 %Nancy Barnard MD Work Phone: [facility] [employer]07-22-2025 16:37-0400Body ubuwit106 cmThaiyayo Barnard MD Work Phone: [employer]07-22-2025 16:37-0400Body mass index (BMI) [Ratio]32.57 kg/a3Zyrupdaphney Barnard MD Work Phone: [facility] [employer]07-22-2025 16:37-0400Body .4 kgThdaphney Barnard MD Work Phone: [employer]06-11-2025 10:27-0400Body nrdlyu163 Alex Hines PA-C Work Phone: [facility] [employer] Fmfbbn07-77-5261 10:27-0400Body mass index (BMI) [Ratio]34.54 kg/g1PczgoemBryant Hines PA-C Work Phone: [facility] Qnxkfg12-41-9637 10:27-0400Body wtujnw10.45 kgBryant Hines PA-C Work Phone: [facility] Qwerje35-93-2905 10:27-0400Diastolic blood rxcuerem60 mm[Hg]Bryant Hines PA-C Work Phone: [facility] Fpzqww99-87-6391 10:27-0400Heart rate 77 /minBryant Hines PA-C Work Phone: [phone] Iehwbz11-89-5690 10:27-0400Systolic blood dbcqkcin991 mm[Hg]Bryant Hines PA-C Work Phone: [facility] Zrpgsu81-29-3129 10:35-0400Body ojqych742.6 cmAntmarymaria esther Hines PA-C Work Phone: [facility] Zdshwv79-93-0314 10:35-0400Body mass index (BMI) [Ratio]34.31 kg/a4ZcftomeBryant Hines PA-C Work Phone: [facility] Sagvaq07-08-0981 10:35-0400Body .72 kgBryant Hines PA-C Work Phone: [facility] Vcmwus18-86-1758 10:35-0400Diastolic blood alpugtiw51 mm[Hg]Bryant Hines PA-C Work Phone: [facility] Nuqgzn46-05-3565 10:35-0400Heart rate 71 /minBryant Hines PA-C Work Phone: [phone] Nchwdn84-85-6783 10:35-0400Systolic blood yimizish474 mm[Hg]Bryant Hines PA-C Work Phone: [facility] Tdskbl10-58-4261 11:02-0500Body dcefzl518.6 cmJanay Mustafa APRN-BEEF GRINDER Work Phone: [facility]02-18-2025 11:02-0500Body mass index (BMI) [Ratio]34.35 kg/w4WqgtezJanay Mustafa APRN-BEEF GRINDER Work Phone: [facility]02-18-2025 11:02-0500Body .6 [degF]Janay Mustafa APRN-BEEF GRINDER Work Phone: [facility]02-18-2025 11:02-0500Body ttxalf96.81 kgJanay Mustafa AUTO TRAVEL COUNSELOR-BEEF GRINDER Work Phone: [facility]02-18-2025 11:02-0500Diastolic blood mpwuacps94 mm[Hg]Janay Mustafa APRN-BEEF GRINDER Work Phone: [facility]02-18-2025 11:02-0500Heart rate 66 /minJanay Mustafa APRN-BEEF GRINDER Work Phone: [facility]02-18-2025 11:02-9602KcB2% (BldA) [Mass fraction]99 %Janay Mustafa APRN-BEEF GRINDER Work Phone: [facility]02-18-2025 11:02-0500Systolic blood edwqkxjj449 mm[Hg]Janay Mustafa APRN-BEEF GRINDER Work Phone: [facility]02-08-2025 11:46-0500Body llejhmeywua05.2 [degF]Oliverio Dennis MD Work Phone: [facility]02-08-2025 11:46-0500Diastolic blood mm[Hg]Oliverio Dennis MD Work Phone: [facility]02-08-2025 11:46-0500Heart rate 57 /minSnathan Dennis MD Work Phone: [facility]02-08-2025 11:46-0500 Respiratory rate16 /minSnathan Dennis MD Work Phone: 1(291)167-[address] [place], [place] 8324302-08-2025 11:46-0500Systolic blood iomveezp464 mm[Hg]Oliverio Dennis MD Work Phone: 1(369)535-[address] [place], [place] 8324302-08-2025 09:06-2081NfD8% (BldA) [Mass fraction]99 %Oliverio Dennis MD Work Phone: [phone])230-[address] [place], [place] 8324302-06-2025 05:00-0500Body mass index (BMI) [Ratio]34.95 kg/e4IhkgjhaOliverio Dennis MD Work Phone: 1(996)572-[address] [place], [place] 8324302-06-2025 05:00-0500Body oslbyg50.4 kgOliverio Dennis MD Work Phone: 1(462)250-[address] [place], [place] 8324302-03-2025 04:00-0500Body vimrtg843.6 cmSnathan Dennis MD Work Phone: 1(635)706-[address] [place], [place] 8324302-01-2025 09:29-0500Body jnnthbikkxa94.6 [degF]Oliverio Dennis MD Work Phone: 1(486)133-[address] [place], [place] 8324302-01-2025 09:29-8526SaL8% (BldA) [Mass fraction]65 %Oliverio Dennis MD Work Phone: 1(667)594-[address] [place], [place] 8324302-01-2025 09:29-4288HtD3% (BldA) [Mass fraction]96 %Oliverio Dennis MD Work Phone: [phone])061-[address] [place], [place] 8324302-01-2025 09:26-7529GrL1% (BldA) [Mass fraction]96 %The [facility] SystemComment on above: Performed By: #### ABG ####[facility] ([id number] [place], [place] 4978444-91-4893 15:50-0400Body .6 Barbara Bragg MD Work Phone: [facility]10-08-2024 15:50-0400Body mass index (BMI) [Ratio]30.9 kg/m2Megha Bragg MD Work Phone: [facility]10-08-2024 15:50-0400Body egqbgq88.65 kgMegha Bragg MD Work Phone: [facility]10-08-2024 15:50-0400Diastolic blood imawzxun88 mm[Hg]Megha Bragg MD Work Phone: [facility]10-08-2024 15:50-0400Systolic blood mm[Hg]Megha Bragg MD Work Phone: [facility]07-19-2024 07:30-0400Body feemcwqgwxk39.9 [degF]MD Ottoniel Arias Work Phone: [phone]07-19-2024 07:30-0400 Diastolic blood mjjsbkae31 mm[Hg]MD Ottoniel Arias Work Phone: [phone]07-19-2024 07:30-0400 Heart rate85 /minMD Ottoniel Hugo Work Phone: [phone]07-19-2024 07:30-0400 Respiratory rate18 /minMD Solano Hugo Work Phone: [phone])[address]07-19-2024 07:30-0400 SaO2% (BldA) [Mass fraction]99 %MD Ottoniel Arias Work Phone: [phone]07-19-2024 07:30-0400 Systolic blood mm[Hg]MD Ottoniel Arias Work Phone: [phone]07-16-2024 14:12-0400 Body eesrwa307.02 cmMD Solano Hugo Work Phone: [phone]07-15-2024 08:11-0400 Body .84 kgMD Muhamid Hugo Work Phone: [facility]04-26-2024 13:23-0400 Body mijjlf358.6 Barbara Bragg MD Work Phone: [facility]2024 13:23-0400Body mass index (BMI) [Ratio]28.32 kg/m2Megha Bragg MD Work Phone: [facility]04-26-2024 13:23-0400Body .84 kgMegha Bragg MD Work Phone: [facility]04-26-2024 13:23-0400Diastolic blood leliizuh69 mm[Hg]Megha Bragg MD Work Phone: [facility]04-26-2024 13:23-0400Heart rate 106 /Yoly Bragg MD Work Phone: [facility]04-26-2024 13:23-0400Systolic blood pltemwiy271 mm[Hg]Megha Bragg MD Work Phone: [facility]10-18-2023 16:40-0400Body evldxm046.02 Henrietta Woodard Other [employer] Other 10-18-2023 16:40-0400Body mass index (BMI) [Ratio] 27.99 kg/w0UtouabBarb Woodard Other [employer] Other 10-18-2023 16:40-0400Body xzapyucnwcb10.7 [degF]Barb Woodard Other [employer] Other 10-18-2023 16:40-0400Body htbzny39.67 kgBarb Woodard Other [employer] Other 10-18-2023 16:40-0400Diastolic blood xtqokipe29 mm[Hg] Barb Woodard Other [employer] Other 10-18-2023 16:40-0400Respiratory rate18 /minBarb Woodard Other [facility] [employer] Other 10-18-2023 16:40-0837RmH1% (BldA) [Mass fraction]99 % Barb Woodard Other [place] [employer] Other 10-18-2023 16:40-0400Systolic blood meytjvqb472 mm[Hg] Barb Woodard Other [facility] [employer] Other Encounters Encounter DateEncounter TypeCare ProviderFacilityStart: 77-39-0452azxcfsxijtnguyễn MontalvoFacility:[facility] Hospitaltart: 07-27-2025 End: 68-46-3871cyulttiuxmMYIECMD [facility] HospitalStart: 07-27-2025 End: 77-67-0798Vvbhcckbjn hospital visit by physicianHealth System Laboratory Schedule [facility] LABComment on above:Missed abortionStart: 07-18-2025 End: 23-45-6432ocjdtawqsiXWQOETW M [facility] Ambulatory PPGStart: 07-11-2025 End: 76-98-3413sridpfuvhnHJAEQOJW E POOLMercy Kirkwood HospitalStart: 07-10-2025 End: 53-96-1486citnbokoemWEVFDVQ [facility] HospitalStart: 07-04-2025 End: 18-01-9748qukoaovmgdAMYOIQX M [facility] HospitalStart: 06-26-2025 End: 82-76-6177sfphpsuwoeIirwdya Asif MD Work Phone: [facility] Work Phone: Start: 06-26-2025 End: 28-37-5684Gpstxdyw Octaviano Schulz PA-C-LAB [facility] Start: 06-22-2025 End: 90-02-9371Bhehylrmm department patient visitFacility:[facility] HospitalStart: 06-20-2025 End: 08-75-3476Mvjnbijhv department patient visitMUHorn Memorial Hospital Emergency DepartmentComment on above:Cannabis 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); Positive testStart: 06-19-2025 End: 46-94-8596Owbebqlkc department patient visitMUHorn Memorial Hospital HospitalStart: 55-59-0521Ugjheygthg RecurringDonavon Montalvo MDKINDRED [facility] CredibleStart: 05-26-2025 End: 98-70-5458Wdagwf-up encounterMerfariba BRUNODignity Health St. Joseph's West[facility] Medical CenteroMedhartselle medical center Physicians Family MedicineComment on above:Basic Metabolic PanelStart: 07-16-5569osdxmljwhnJohn F. Kennedy Memorial Hospital HospitalStart: 05-13-2025 End: 40-95-4896Lkjvhuagr department patient visitMUBLYTHEDALE CHILDREN'S HOSPITALID [facility] Emergency DepartmentComment on above:Cannabis 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)Start: 05-05-2025 End: 58-52-9782dtwpsdiomsGUPOMTDMEHouston Methodist Hospital Ambulatory PPGStart: 05-05-2025 End: 69-16-2946Gyviweooobxf care manage srvc 14 day dischargePoplar Springs Hospitaljas AUTO TRAVEL COUNSELOR-BEEF GRINDER Work Phone: [facility] Family MedicineComment on above: Nausea and vomiting, unspecified vomiting type (Primary Dx); Hypokalemia; RAKESH (acute kidney injury); Seizure disorder (CMS-HCC); Hospital discharge follow-upStart: 04-28-2025 End: 12-42-4674Imjwvy outpatient visit 15 minutesBryant Hines PA-C Work Phone: [facility] [place]ontComment on above:Seizure disorder (CMS-HCC) (Primary Dx); Breakthrough seizure (CMS-HCC); Cannabinoid hyperemesis syndromeStart: 04-28-2025 End: 84-47-2331nrggzjxangUSZOAQWOsceola [facility] PPGStart: 04-25-2025 End: 56-43-2303hqfobfjbviYAYRHPSt. Anthony's Hospitaltart: 04-25-2025 End: 07-95-3460Qmupgbubkl and management of inpatientThais Carmelo Barnard MD Work Phone: mthz ICUComment on above:Nausea and vomiting, unspecified vomiting type (Primary Dx); Cannabinoid hyperemesis syndrome; Hypokalemia; DehydrationStart: 15-60-3812pnvycaqgdpNMBLWPL C HAMILTONSt. Mary's Medical Centertart: 03-15-2025 End: 93-94-6271Duzzxp outpatient visit 25 minutesBryant Hines PA-C Work Phone: [facility] FremontComment on above:Seizure disorder ([facility]-HCC) (Primary Dx); Breakthrough seizure ([facility]-HCC)Start: 03-15-2025 End: 03-43-8036afqwkqsruxWZKYQOLOsceola Ladd [facility] Center PPGStart: 03-01-2025 End: 53-88-8570Jgmucmeej department patient visitWestern Reserve Hospitaltart: 02-23-2025 End: 85-49-6300Idtdkemhj department patient visitWestern Reserve Hospitaltart: 12-21-2024 End: 88-10-4190Prjtvz outpatient visit 15 minutesMegha Bragg MD Work Phone: [facility] FremontComment on above:Seizure disorder ([facility]-HCC) (Primary Dx)Start: 12-21-2024 End: 38-94-3391vudeddcloxVPZTUHOOsceola Ladd Memorial Medical Center PPGStart: 12-06-2024 End: 93-31-7654Yqqcfybes encounterLaura KeyerProMedica Physicians Neurology Comment on above:12/20/24 MAHSA RESCHEDULEStart: 11-23-2024 End: 37-08-5019rciffrhzmeXTLBNM A [facility] Hospitaltart: 11-22-2024 End: 77-29-6087Crkfhoiou encounterSatnam BATRES [facility] HealthoStart: 11-22-2024 End: 78-66-6652Rwllmwkzdbkw care manage srvc 14 day dischargeJanay Mustafa AUTO TRAVEL COUNSELOR-BEEF GRINDER Work Phone: [facility] Physicians Family MedicineComment on above: Seizure disorder (CMS-HCC) (Primary Dx); Focal epilepsy (CMS-HCC); Acute kidney injury (CMS-HCC); Eczema of right handStart: 11-22-2024 End: 36-00-1567shdwbkbhvbTUHSNA A [facility] Ambulatory PPG Start: 11-15-2024 End: 67-71-6875Vvzabz OnlyJanay Mustafa AUTO TRAVEL COUNSELOR-BEEF GRINDER Work Phone: [facility] Physicians Family MedicineComment on above: Seizure disorder (CMS-HCC) (Primary Dx)Transition Of CareStart: 11-08-2024 End: 58-78-7137zrlmxqykpfJXQNJY VOHRAProMedParkwood Hospital HospitalStart: 11-05-2024 End: 30-73-5717Jbnjncsnsf and management of inpatientSguerlineleroy Jazz Singh DO Work Phone: [facility] AcuteStart: 11-04-2024 End: 71-45-3110Hnznzwprl department patient visitMUHAMHOLLEY Schulz ASIFPFoothills Hospital HospitalStart: 11-02-2024 End: 51-89-3392Sntvsvqmr encounterMaxjulian LlamasAvita Health [facility] Phys[facility] Comment on above:levETIRAcetam (KEPPRA) 750 mg tabletStart: 09-14-2024 End: 49-36-8331Pcbxmgcale and management of inpatientNAMEER ALADAMATProMedParkwood Hospital HospitalStart: 09-14-2024 End: 54-01-7244Txjwdphcic and management of inpatientNAMEER ALADAMATProMedParkwood Hospital HospitalStart: 09-13-2024 End: 67-76-8397Xtjaaecmff and management of inpatientNAMEER ALADAMATProMedica Hassan HospitalStart: 09-12-2024 End: 87-44-0987mskuzngvpqBWQCElyria Memorial Hospital HospitalStart: 09-12-2024 End: 00-15-5356Akgcwbtncn and management of inpatientIMRAN I ALIProSelect Medical [facility] - Dublinca Saltese HospitalStart: 07-12-2024 End: 84-78-7925Cjywts outpatient visit 25 minutesMegha Bragg MD Work Phone: [facility]icians NeurologyComment on above: Breakthrough seizure ([facility]-HCC) (Primary Dx); Gastroesophageal reflux disease, unspecified whether esophagitis present; Seizure disorder (CMS-HCC); Eczema, unspecified type; Anxiety; Depression, unspecified depression typeStart: 07-12-2024 End: 27-24-8048hsnlvqzdekZZXJCity Emergency Hospital HospitalStart: 07-01-2024 End: 70-80-7541Gseustllevwvj procedureKalin AvilaHolzer Health System - Acute CareStart: 51-10-5132Vuk-patient / Non-visitMD Muhamid Hugo Work Phone: [facility] Work Phone: Start: 04-17-2024 End: 60-56-2492Xgwpcanbfg and management of inpatientMD Muhamid Hugo Work Phone: [facility] Work Phone: Start: 03-20-2024 End: 26-75-1468MqbhxkSfqsfje M Asif MD Work Phone: [facility] Physicians Family MedicineComment on above: AnxietyStart: 02-08-2024 End: 34-68-7586NbrhczCmxwqdg M Asif MD Work Phone: [facility] Physicians Family MedicineComment on above: AnxietyStart: 02-02-2024 End: 76-71-0295nneszktaumWAHHQ FAZIONot AvailableStart: 01-29-2024 End: 43-11-1193Zhemlj outpatient new 45 minutesRachel D Karchner AUTO TRAVEL COUNSELOR-BEEF GRINDER Work Phone: [facility] Physicians NeurologyComment on above:Seizure disorder (CMS-HCC) (Primary Dx); Witnessed seizure-like activity (CMS-HCC); Anxiety; Gastroesophageal reflux disease, unspecified whether esophagitis present; Depression, unspecified depression type; Eczema, unspecified typeStart: 89-50-5213Uefsrs OnlyOttoniel Arias MD Work Phone: [facility] Physicians Family MedicineComment on above: Seizure (CMS-HCC) (Primary Dx); Muscle crampStart: 44-18-8221Wpvpbfunm department patient visitMarietta Memorial Hospitaltart: 01-06-2024 End: 93-07-7958Jzmdcvnka department patient visitPremier Health Miami Valley Hospitaltart: 98-43-8922Fawdccwjv encounterCarlee EastClifton Springs [facility] Physicians NeurologyComment on above:New Patient Appt.Start: 11-24-2023 End: 81-09-5408Ersjgf outpatient visit 25 minutesOttoniel Arias MD Work Phone: [facility] Physicians Family MedicineComment on above: Anxiety (Primary Dx); Depression, unspecified depression typeStart: 10-26-2023 End: 09-75-2879kskfwrtrsnBXQFJ FAZIONot AvailableStart: 10-08-2023 End: 05-55-5118Oscfzl outpatient visit 15 minutesOttoniel Arias MD Work Phone: [facility] Physicians Family MedicineComment on above: Generalized anxiety disorderStart: 08-31-2023 End: 11-77-7296hpmnseqchhTYMIN FAZIONot AvailableStart: 07-22-2023 End: 28-32-1501mbqbpaovjvErbzvz Dymond Other [place] [employer] Other Start: 43-57-3793Hycdgw outpatient visit 15 minutes Barb BondG Urgent Care ClydeStart: 09-25-2022 End: 98-22-0462uflxxludhhJJ NONE LISTED REQUESTFacility:H1 Procedures DateProcedureProcedure DetailPerforming ClinicianStart: 69-14-4419Bsgkjcpdzdby chorionic quantitativeKathleen E Pool AUTO TRAVEL COUNSELOR - CNM Work Phone: Start: 06-06-3490Lo preg uterus real time w/image dcmtn transvagMarcia Susie Gab AUTO TRAVEL COUNSELOR - BEEF GRINDER Work Phone: Start: 66-44-5863Ptnh tst prsmv instrmnt chem analyzers pr dateCarminacia Susie Gab AUTO TRAVEL COUNSELOR - BEEF GRINDER Work Phone: Start: 36-49-8163Vvsfn dip stick/tablet reagent auto microscopyThdaphney Barnard MD Work Phone: Start: 06-20-2025 End: 09-50-0246Jhlduhhpqqsap metabolic panelThdaphney Barnard MD Work Phone: Start: 34-53-7492Ovjm tst prsmv instrmnt chem analyzers pr dateTozeke Araiza [place] PA-C Work Phone: Start: 17-66-1768Hcizw dip stick/tablet reagent auto microscopyTozeke Araiza [facility]- Work Phone: Start: 72-60-2461Ahmfk metabolic panel calcium total You Jose G [facility]- Work Phone: Start: 38-05-6680Aqubu depression screening assessment Sharon Lynch AUTO TRAVEL COUNSELOR-BEEF GRINDER Work Phone: Start: 24-42-4641Nrnftw ecg 1-3 leads w/interpretation & reportUnknown Provider ResultStart: 04-26-2025 End: 87-98-2877Ufqxl of magnesiumMarcia Susie Gab AUTO TRAVEL COUNSELOR - BEEF GRINDER Work Phone: Start: 67-40-7437NPDNN METABOLIC PANEL W/ REFLEX TO MG FOR LOW KMarcia Susie Gab AUTO TRAVEL COUNSELOR - BEEF GRINDER Work Phone: Start: 12-77-2966Amqsyievpl microscopic onlyJames P Terrell PA-C Work Phone: Start: 09-84-9681Xoemh dip stick/tablet rgnt auto w/o microscopyJames P Terrell PA-C Work Phone: Start: 13-94-2313Ur abdomen & pelvis w/contrast materialJames P Terrell PA-C Work Phone: Start: 72-31-9400Lmijnivtinjhd metabolic panelJames P Terrell PA-C Work Phone: Start: 04-25-2025 End: 19-56-0332Emf routine ecg w/least 12 lds i&r onlyJames P Terrell PA-C Work Phone: Start: 26-31-1089Tsiggk-up visitFollow-upJUDITH A [facility]IVINGSTON HOSPITALtart: 49-20-1262Kjabo depression screening assessmentNicole Cheng RN Start: 05-93-4477Eenrjwcexrrap metabolic panelSnathan Dennis MD Work Phone: Start: 42-59-3335Ggzdyccjlq exam chest single view Oliverio Dennis MD Work Phone: Start: 85-00-5754WB INFECTIOUS DISEASE RESP, DNA/RNA, 22 TARGETS INCLUDING EVVHBAL6Pkxsnqgsoheila Dennis MD Work Phone: Start: 36-12-6033Wkuabbujthckc metabolic Brigitte Dennis MD Work Phone: Start: 26-99-8235Wqv routine ecg w/least 12 lds trcg only w/o i&rDalal Mahmoud PA-C Work Phone: Start: 88-53-5843Hybppjvdnmhfc metabolic panelSnathan Dennis MD Work Phone: Start: 16-72-4084Frowzlzyl serum plasma/whole blood Marjorie Curiel MD Work Phone: Start: 85-93-3733Lnwmwrfmdfcjc metabolic panelSnathan Dennis MD Work Phone: Start: 38-15-9964Pdetfvkug serum plasma/whole blood Marjorie Curiel MD Work Phone: Start: 11-08-2024 End: 71-85-5872Onac bld gluc mntr dev cleared fda spec home useSparviz Singh DO Work Phone: Start: 22-58-2465Acnwovpdcbpmuz vitamin b-12Marjorie Curiel MD Work Phone: Start: 65-79-8372Enpkzhu ionizedChristopher Ewry AUTO TRAVEL COUNSELOR-BEEF GRINDER Work Phone: Start: 73-14-6686Osesf metabolic panel calcium total Marjorie Curiel MD Work Phone: Start: 36-97-5545Uohhgxrkq serum plasma/whole blood Marjorie Curiel MD Work Phone: Start: 71-33-4601Tuiv bld gluc mntr dev cleared fda spec home useSparviz Singh DO Work Phone: Start: 11-07-2024 End: 50-32-0199Aftdijkrj serum plasma/whole bloodMarjorie Curiel MD Work Phone: Start: 90-66-9187Ortmkhkf kinase totalNestor Ramsey MD Work Phone: Start: 11-07-2024 End: 80-94-1672Jutrotwz kinase totalMarjorie Curiel MD Work Phone: Start: 47-36-3336IY ANTINEUTROPHIL CYTOPLASMIC ANTB SCREEN EA ANTBChristopher Ewry AUTO TRAVEL COUNSELOR-BEEF GRINDER Work Phone: Start: 08-00-4075TR IMMUNOGLOBULIN LIGHT CHAINS FREE EACHChristopher Ewry AUTO TRAVEL COUNSELOR-BEEF GRINDER Work Phone: Start: 50-86-8231Hdiclvztxqgue metabolic panelEvan Prielipp AUTO TRAVEL COUNSELOR-BEEF GRINDER Work Phone: Start: 88-97-8420CCWRNJVDWWR IN PROCESS EEG TESTING Sol Ramos MD Work Phone: Start: 04-08-6214YZI VIDEO MONITORINGNathalie Mooney MD Work Phone: Start: 11-06-2024 End: 06-47-1910Jghpt-dna/rna gi pthgn multiplex probe tq 12-25Christopher Ewry AUTO TRAVEL COUNSELOR-BEEF GRINDER Work Phone: Start: 47-03-4758Awn agent det nucleic acid clostridium amp probeClmaureen Merrill MD Work Phone: Start: 11-06-2024 End: 34-50-6300Lsyaekfpfgwfb metabolic panelEvan Prielipp AUTO TRAVEL COUNSELOR-BEEF GRINDER Work Phone: Start: 45-21-4420Tfjyk dip stick/tablet rgnt auto w/o microscopyMarie Schulz [employer] Work Phone: Start: 93-53-2635Bousrhisqix antibodies Martínez Schulz Francisco DO Work Phone: Start: 45-19-7641Zjoa ia hiv-1 ag w/hiv-1 & hiv-2 antbdy Pia Schulz [employer] Work Phone: Start: 48-55-8613MBZ VIDEO MONITORING IN PROGRESSNathalie Mooney MD Work Phone: Start: 11-05-2024 End: 97-82-7105Mgrrzjf ionizedEvan Prielipp AUTO TRAVEL COUNSELOR-BEEF GRINDER Work Phone: Start: 24-17-1131Jqxm bld gluc mntr dev cleared fda spec home Vianca Singh DO Work Phone: Start: 18-80-0772Ohjol metabolic panel calcium total Richard Prielipp AUTO TRAVEL COUNSELOR-BEEF GRINDER Work Phone: Start: 21-64-4381Vghf screen quantitative vancomycin Richard Prielipp AUTO TRAVEL COUNSELOR-BEEF GRINDER Work Phone: Start: 95-67-7157Toaf bld gluc mntr dev cleared fda spec home Vianca Singh DO Work Phone: Start: 71-91-1307Cfwzsfjm kinase totalEvan Prielipp AUTO TRAVEL COUNSELOR-BEEF GRINDER Work Phone: Start: 14-68-6030Eipmu gases any combination ph pco2 po2 co2 pwa4Cgtcafgrayson Singh DO Work Phone: Start: 68-54-8237SKR VIDEO MONITORING IN PROGRESSNathalie Mooney MD Work Phone: Start: 25-48-2696JGRTmggy Patel MD Work Phone: Start: 67-21-0687Dsjinwtlhlh timeNathalie Mooney MD Work Phone: Start: 68-88-9402Ssnk screen quantitative vancomycin Richard Prielipp AUTO TRAVEL COUNSELOR-[facility] Work Phone: Start: 11-05-2024 End: 29-88-2810Tmkscwnur not otherwise specifiedEvan Prielipp AUTO TRAVEL COUNSELOR-[facility] Work Phone: Start: 66-73-7029Mafye depression screening assessment Janay Mustafa AUTO TRAVEL COUNSELOR-[facility] Work Phone: Start: 11-05-2024 End: 13-26-7734Fcphvdkleedle metabolic panelEvan Prielipp AUTO TRAVEL COUNSELOR-[facility] Work Phone: Start: 09-09-4523IL INFECTIOUS DISEASE RESP, DNA/RNA, 22 TARGETS INCLUDING GTOBJND2Ckwv Prielipp AUTO TRAVEL COUNSELOR-[facility] Work Phone: Start: 55-62-7182Aamrf depression screening assessment Cherry LlamasStart: 68-29-1248Giklgp-up visitFollow-upEHAD AFREENStart: 29-39-3904Imbew depression screening assessmentOttoniel Arias MD Work Phone: Start: 78-69-2606Hbldw depression screening assessment Ottoniel Arias MD Work Phone: Plan of Treatment DateCare ActivityDetailAuthorStart: 40-84-7026Yfzlqpzuqwo Syncytial Virus (RSV) or age 60 yrs+ (1 - 1-dose 75+ series)Respiratory Syncytial Virus (RSV) or age 60 yrs+ (1 - 1-dose 75+ series)[facility]: 66-64-1465UQaR,Tdap and Td Vaccines (8 - Td or Tdap)DTaP,Tdap and Td Vaccines (8 - Td or Tdap)[facility]: 69-25-2378OOrE/Tdap/Td vaccine (8 - Td or Tdap)DTaP/Tdap/Td vaccine (8 - Td or Tdap)[facility]: 15-02-1542Nfjynho ScreeningTobacco ScreeningDetwiler Memorial Hospital SystemStart: 60-30-7712Ivusi BMI ScreeningAdult BMI ScreeningDetwiler Memorial Hospital SystemStart: 87-96-3604Dlwzbeyaiw ScreeningDepression ScreeningLake County Memorial Hospital - Westca [facility] SystemStart: 20-00-3026Rzrlzak ScreeningTobacco ScreeningLake County Memorial Hospital - Westca Health SystemStart: 86-41-8016Quczv BMI ScreeningAdult BMI ScreeningLake County Memorial Hospital - Westca Health SystemStart: 24-35-5598Xdntawe ScreeningTobacco ScreeningProSelect Medical [facility] - Dublinca Health SystemStart: 70-65-5967Xamis BMI ScreeningAdult BMI ScreeningLake County Memorial Hospital - Westca Health SystemStart: 59-09-2879Femqkae ScreeningTobacco ScreeningLake County Memorial Hospital - Westca Health SystemStart: 87-32-4296Wzyws BMI ScreeningAdult BMI ScreeningLake County Memorial Hospital - Westca Health SystemStart: 22-72-1584Yppsgwz ScreeningTobacco ScreeningLake County [facility] Hospital - Westca Health SystemStart: 63-26-7898Xtzbr BMI ScreeningAdult BMI ScreeningLake County Memorial Hospital - Westca Health SystemStart: 02-10-3260Yothuprbcx ScreeningDepression ScreeningLake County Memorial Hospital - Westca [facility] SystemStart: 80-23-7280Nwjjflc ScreeningTobacco ScreeningLake County Memorial Hospital - Westca Health SystemStart: 56-81-7852Zgkog BMI ScreeningAdult BMI ScreeningLake County Memorial Hospital - Westca [facility] SystemStart: 11-07-2025 End: 07-46-6105Ilctruv encounter pyxbsjzdm85/03/2026 9:30 AM EST Office Visit [facility] [address] [place] [address] [place] [address] Ottoniel Arias MD [address] [place] [address], [facility] [place] [address] [facility] MedicineStart: 61-13-4952Ykczdugnyx ScreeningDepression ScreeningProMedica Health SystemStart: 57-54-3837Cpucdwz ScreeningTobacco ScreeningProMedica Health SystemStart: 09-20-2025 End: 45-53-8969Jgtdgtd encounter vobafmsna79/17/2025 10:10 AM EST Office Visit [facility] OB[facility]YNECOLOGY Part of [address] [place], [place] [id number] Jennifer Connors, AUTO TRAVEL COUNSELOR - CNM27 [facility] [address] [place] [address] [facility] OBSTETRICS & GYNECOLOGY Part of [facility] Comment on above:AnnualStart: 30-49-3438Ljcvlbepxb ScreeningDepression Screening ProMGreenwood County Hospitaltart: 03-84-7923Zdlyjox ScreeningTobacco Screening [facility]art: 07-18-2025 End: 30-27-6288Jdpfizd encounter kngqrerxc19/14/2025 10:00 AM EDT Office Visit [facility] [place] [address] [place] [address] Bryant Hines, RODERICK [address] [facility], [facility] [address] [place] [address] [facility]art: 78-02-9081Ghqqmmc ScreeningTobacco ScreeningProMedica Health SystemStart: 10-09-3591Utetd BMI Follow Up PlanAdult BMI Follow Up Plan ProMLake City Hospital and Clinic SystemStart: 12-37-6318Rhyaz BMI ScreeningAdult BMI Screening [facility] SystemStart: 75-13-3946Ljqxhnu ScreeningTobacco Screening [facility] SystemStart: 12-42-9847DujrsCorey Hospitaltart: 91-27-1117Sxcnaycj identified in Urine by CultureUrine Culture [facility] Hospitaltart: 89-24-0877KMMKB-19 Vaccine ( season)COVID-19 Vaccine ( season)[facility] HospitalStart: 79-47-2205Oqtuczyma vaccinationInfluenza VaccineProAultman Hospital SystemStart: 05-19-2025 End: 15-11-0775Xmruh metabolic 2000 panel - Serum or PlasmaBasic Metabolic Panel Lab Routine Hypokalemia RAKESH (acute kidney injury) Expected: 05/19/2025 (Approx imate), Expires: 05/05/2026[facility] Work Phone: Comment on above:Expected: 05/19/2025 (Approximate), Expires: 05/05/2026Start: 38-17-8251Igmnlgnrm vaccinationFlu vaccine (#1)Bon [facility] CenterStart: 05-05-2025 End: 39-48-9163Ejzyavm encounter /01/2025 10:40 AM EDT Office Visit [facility] [address] [place] [address] Sharon Lynch APRN-CNP [address] [place] [address] [facility] MedicineStart: 47-63-3070Jrrpp BMI ScreeningAdult BMI ScreeningDetwiler Memorial Hospital SystemStart: 29-74-3365Dsyfipq ScreeningTobacco ScreeningDetwiler Memorial Hospital System Start: 03-15-2025 End: 55-41-4913axzswpnqrf11/11/2025 4:20 PM EDT Lab [facility] Lab [address] [place] [address] VrzUhsgxlWyandot [facility] - LabStart: 03-15-2025 End: 13-24-3539Oknfpgk encounter nlnqkzokv20/11/2025 10:30 AM EDT Office Visit [facility] [place] [address] [place] [phone] Bryant Hines PA-C [address], [address] [place] [phone] [facility]art: 91-32-2407Xpcdu BMI ScreeningAdult BMI Screening ProMmarshall medical center southa Health SystemStart: 51-26-2096Aeonran ScreeningTobacco Screening ProMmarshall medical center southa Health SystemStart: 70-95-2941Vauuw BMI ScreeningAdult BMI Screening ProMmarshall medical center southa Health SystemStart: 95-81-5775Rhfxdcc ScreeningTobacco Screening ProMmarshall medical center southa [facility] SystemStart: 01-05-2025 End: 16-91-0660Dxkwwgr encounter vbsverryr04/03/2025 9:00 AM EDT Office Visit [facility] [address] [place] [phone] Ottoniel Arias MD [address] [facility] [place] [address] [facility] Systemtart: 06-13-3481Aqhhr BMI ScreeningAdult BMI ScreeningAvita Health System [facility] Health SystemStart: 26-38-0244Wkesokw ScreeningTobacco ScreeningDetwiler Memorial Hospital SystemStart: 12-21-2024 End: 23-43-8264Gtlxlyx encounter /19/2025 10:30 AM EDT Office Visit [facility] [place] [address] [facility] [place] [phone] Megha Bragg MD [address] [facility], [address] [place] [phone] Bryant Hines PA-C [address] [place] [address] [facility]art: 12-20-2024 End: 31-69-1562jqjfnhfufeLykNfousy Physicians Neurology [facility] Centertart: 12-20-2024 End: 05-38-9676Rezghfy encounter procedureProSelect [facility] Dublinca Physicians NeurologyStart: 15-03-2652Nuoaatpfeg ScreeningDepression ScreeningProAultman Hospital SystemStart: 36-20-3595Gqdtqty ScreeningTobacco ScreeningProAultman Hospital SystemStart: 11-22-2024 End: 97-44-4548Tnhprsi encounter yovnmdvgs39/18/2025 11:00 AM EST Office Visit [facility] [address] [place] [address] Janay Mustaaf, AUTO TRAVEL COUNSELOR-BEEF GRINDER [address], [place] [address] [facility]WV[facility] MedicineStart: 11-19-2024 End: 23-06-3759Ajocs metabolic 2000 panel - Serum or PlasmaBasic Metabolic Panel Lab Routine Seizure disorder ([facility]-HCC) Expected: 11/19/2024 (Approximate), Exp ires: 11/15/2025[facility] Work Phone: Comment on above:Expected: 11/19/2024 (Approximate), Expires: 11/15/2025Start: 11-19-2024 End: 83-68-9531PR TotalCK Total Lab Routine Seizure disorder ([facility]-HCC) Expected: 11/19/2024, Expires: 11/15/2025ProAultman Hospital SystemComment on above: Expected: 11/19/2024, Expires: 11/15/2025Start: 40-57-6156Tvynygf Screening Tobacco ScreeningProAultman Hospital SystemStart: 81-91-3910Dzzqv BMI Screening Adult BMI ScreeningDetwiler Memorial Hospital SystemStart: 07-12-2024 End: 35-42-9473Whullmx encounter xrvlmilxo47/08/2024 4:00 PM EDT [facility] [address] [place] [address] Megha Bragg MD [address] [place] [address], [address] [place] [phone] [facility] NeurologyStart: 06-24-2024 End: 28-18-8100Tqjcbhw encounter nsdfnmlpe73/20/2024 2:30 PM EDT Office Visit [facility] [address] [place] [address] Megha Bragg MD [facility] [facility], [address] [place] [phone] [facility] NeurologyStart: 38-08-3051VWUWC-19 Vaccine ( season)COVID-19 Vaccine ( season)[facility] HospitalStart: 90-00-7212Tfaaoxpqb vaccinationInfluenza VaccineAvita Health System [facility] Health SystemStart: 99-61-8097XbhkuuhuvBerger Hospital Start: 04-13-8051Ynklsuce admissionSuburban Community Hospital & Brentwood Hospitaltart: 22-16-1117YnyvqptkaSuburban Community Hospital & Brentwood Hospitaltart: 03-18-2024 End: 62-48-0028Vucxujm encounter oouxgtwsd66/14/2024 1:15 PM EDT Office Visit [facility] [address] [place] [address] Ottoniel Arias MD [address] [place] [address] [facility] MedicineStart: 01-29-2024 End: 22-11-5334Gfwbloi encounter xncodmokr43/26/2024 1:30 PM EDT Office Visit [facility] [address] [place] [address] Samantha Keyes, AUTO TRAVEL COUNSELOR-BEEF GRINDER [address] [place] [address] Megha Bragg MD [address] [place] [address], [address] [place] [phone] (Work) [facility] NeurologyStart: 01-07-2024 End: 63-41-9041JKK W Auto Differential panel - BloodCBC auto differential Lab Routine Seizure (CMS-HCC) Muscle cramp Expected: 01/07/2024 (Approximate), Expires: 01/06/2025[facility] Work Phone: Comment on above:Expected: 01/07/2024 (Approximate), Expires: 01/06/2025Start: 01-07-2024 End: 05-57-9295Qinhukowkdiru metabolic 2000 panel - Serum or PlasmaComprehensive metabolic panel Lab Routine Seizure (CMS-HCC) Muscle cramp Expected: 01/07/2024 (Approximate), Expires: 01/06/2025[facility] Health SystemComment on above: Expected: 01/07/2024 (Approximate), Expires: 01/06/2025Start: 01-07-2024 End: 21-53-7018Ptkdseood [Mass/volume] in Serum or PlasmaMagnesium Lab Routine Seizure (CMS-HCC) Muscle cramp Expected: 01/07/2024 (Approximate), Expires: [facility] Health SystemComment on above:Expected: 01/07/2024 (Approximate), Expires: 01/06/2025Start: 01-07-2024 End: 98-26-8588Fzcaaymmv [Mass/volume] in Serum or PlasmaPhosphorus Lab Routine Seizure (CMS-HCC) Muscle cramp Expected: 01/07/2024 (Approximate), Expires: 0 01/06/2025[facility] Hospital SystemComment on above:Expected: 01/07/2024 (Approximate), Expires: 01/06/2025Start: 01-07-2024 End: 70-00-9654UMK with ReflexTSH with Reflex Lab Routine Seizure (CMS-HCC) Muscle cramp Expected: 01/07/2024 (Approximate), Expires: 01/06/2025[facility] Hospital SystemComment on above:Expected: 01/07/2024 (Approximate), Expires: 01/06/2025Start: 52-42-7822Bwsvoyfhds ScreeningDepression ScreeningUNC Medical Centertart: 36-03-6127Iyrqqwwvr vaccinationInfluenza VaccineUNC Medical Centertart: 82-51-9192Tqjowhdft for malignant neoplasm of cervixPap SmearUNC Medical Centertart: 96-47-8680Nvhhwzigw B vaccine (1 of 3 - 19+ 3-dose series)Hepatitis B vaccine (1 of 3 - 19+ 3-dose series)[facility] HospitalStart: 16-24-0278Qqyyl BMI Follow Up PlanAdult BMI Follow Up PlanUNC Medical Centertart: 15-29-2693Wjvesdxmd C screeningHepatitis C screenBon [facility] CenterStart: 78-16-8527XYZ screeningHIV screenBon [facility] Medical Centerart: 77-12-6914Ucbmlceuz A vaccine (2 of 2 - 2-dose series)Hepatitis A vaccine (2 of 2 - 2-dose series)[facility] HospitalStart: 45-01-0471RMR vaccine (2 - 2-dose series)HPV vaccine (2 - 2-dose series)[facility] Hospitalart: 20-45-3476Stspctwgwv ScreenDepression ScreenBon [facility] CenterStart: 53-77-1089Wuevqewpt vaccine (2 of 2 - 2-dose childhood series) Varicella vaccine (2 of 2 - 2-dose childhood series)[facility] Start: 23-36-9732Uofgobnvq for Chlamydia trachomatisChlamydia ScreeningUNC Medical Centertart: 30-17-2643Blyxxdq CounselingTobacco CounselingOhioHealth Dublin Methodist Hospital End: 47-95-4515Ipebt metabolic 2000 panel - Serum or PlasmaBasic Metabolic Panel Lab Routine Seizure disorder (CMS-HCC) 1 Occurrences starting 03/15/2025 until 03/15/2026[facility] HospitalComment on above:1 Occurrences starting 03/15/2025 until 03/15/2026 End: 72-44-2045Wkjog Metabolic Panel w/ Reflex to MGBasic Metabolic Panel w/ Reflex to MG Lab Routine Daily for 3 Days starting 04/26/2025 until 04/28/2025, 1 completedIn[facility] Hospital Zinc softwareComment on above:Daily for 3 Days starting 04/26/2025 until 04/28/2025, 1 completed End: 14-06-1998S-reactive proteinC-reactive protein Lab Routine Seizure ([facility]- HCC) Muscle cramp 1 Occurrences starting 01/07/2024 until 01/06/2025ProMediBe Great Partners Health SystemComment on above:1 Occurrences starting 01/07/2024 until 01/06/2025 End: 88-35-0145QYB W Auto Differential panel - BloodProSelect Medical [facility] - DublinBe [facility] End: 61-05-3806ETX W Auto Differential panel - BloodCBC with Auto Differential Lab Routine Daily for 3 Days starting 04/26/2025 until 04/28/2025, 1 completed [facility] [employer] ApniCureCommymichigan medical center clare on above:Daily for 3 Days starting 04/26/2025 until 04/28/2025, 1 completed End: 24-71-9754FC TotalProApricot Trees System End: 50-08-3577PL TotalCK Total Lab Routine Seizure ([facility]) Muscle cramp 1 Occurrences starting 01/07/2024 until 01/06/[email or web address].com SystemComment on above:1 Occurrences starting 01/07/2024 until 01/06/2025 End: 53-46-8947Jpxnvzkedjytz metabolic 2000 panel - Serum or PlasmaProMedica Work Phone: End: 31-14-2812Rfnyyl monitor studyProMedica Work Phone: End: 78-41-7629Uzduev monitor studyLong Term Monitoring for Epilepsy / LTME 5 Day Neurology Routine Breakthrough seizure ([facility]) Seizure disorder ([facility]) 1 Occurrences starting 07/12/2024 until 07/12/2025[facility] Work Phone: Comment on above:1 Occurrences starting 07/12/2024 until 07/12/2025Ionized calciumProMedica Work Phone: End: 02-56-9802TEFBDM Lab Routine Seizure ([facility]) Muscle cramp 1 Occurrences starting 01/07/2024 until 01/06/2025ProMedica Health SystemComment on above:1 Occurrences starting 01/07/2024 until 01/06/2025 End: 61-32-2828Wrjhiqqwebhvi LevelBon Karma GamingComment on above:One Time for 1 Occurrences starting 04/26/2025 until 04/26/2025 End: 36-53-0370Yyvkmadfsnxpy, SLevetiracetam, S Lab Routine Seizure disorder ([facility]) 1 Occurrences starting 03/15/2025 until 03/15/2026[facility] Work Phone: Comment on above:1 Occurrences starting 03/15/2025 until 03/15/2026 End: 42-50-1568Ixpqqfzsn [Mass/volume] in Serum or PlasmaProMedica Health System End: 47-24-0652Yyxtydwry, serumProMedica Health SystemOxygen Therapy - Maintain SpO2: 90%; *CLAMP FORKLIFT OPERATOR Guidelines for O2: Yes; Document: \phsi.[email or web address].org\epi c\EPIC_Reference\Orders\Respiratory Care Guidelines\CPG Oxygen 2022.pdfProMedica Work Phone: Oxygen therapy [Minimum Data Set]Initiate Oxygen Therapy Protocol Respiratory Care Routine As Needed until discontinued starting 04/25/2025on Karma GamingComment on above:As Needed until discontinued starting 04/25/2025Patient EducationDepression, Adult (DC) [facility] DC Instructions Know your [facility] Work Phone: [facility] Work Phone: End: 88-21-0566Ahplxdzaj [Mass/volume] in Serum or PlasmaProMedica Work Phone: End: 11-00-8079Qctoxtwrq [Moles/volume] in Serum or PlasmaProMedica Health System End: 26-42-6520Zoljmplza [Moles/volume] in Serum or PlasmaProMedica Health System End: 39-63-5493Yogijzjux levelProlactin level Lab Routine Seizure ([facility]) Muscle cramp 1 Occurrences starting 01/07/2024 until 01/06/2025ProMedica Health SystemComment on above:1 Occurrences starting 01/07/2024 until 01/06/2025 Immunizations Immunization DateImmunizationNotesCare VtdeaajqPddmpcmh02-06-8568qsqkgarnafkki polysaccharide (groups A, C, Y and W-135) diphtheria toxoid conjugate vaccine (MCV4P)Ottoniel Arias MD Work Phone: [facility]08-14-2017tetanus toxoid, reduced diphtheria toxoid, and acellular pertussis vaccine, adsorbedOttoniel Arias MD Work Phone: [facility] HospitalVqkxlm80-08-9557vfzttukvo A vaccine, pediatric/adolescent dosage, 2 dose scheduleOttoniel Arias MD Work Phone: [facility]09-12-2012human papilloma virus vaccine, quadrivalentOttoniel Arias MD Work Phone: [facility]09-12-2012tetanus toxoid, reduced diphtheria toxoid, and acellular pertussis vaccine, adsorbedOttoniel Arias MD Work Phone: [facility] HospitalMtiymg25-15-9502wuflahxwbx, tetanus toxoids and acellular pertussis vaccine, unspecified formulationOttoniel Arias MD Work Phone: [facility]08-04-2005measles, mumps and rubella virus vaccineOttoniel Arias MD Work Phone: [facility] HospitalMoiqxi18-26-9036mzghgbuuvodt conjugate vaccine, 7 valentOttoniel Arias MD Work Phone: [facility] HospitalMxdjrq60-39-1272oblqwnopjz vaccine, inactivatedMuadrienne Arias MD Work Phone: [facility] HospitalWtygps03-14-0874hjgwjbidk virus vaccineOttoniel Arias MD Work Phone: [facility] Work Phone: [phone]ivn, tetanus toxoids and acellular pertussis vaccine, unspecified formulationOttoniel Arias MD Work Phone: [facility] HospitalWaazru66-03-8408yhspjyblykz influenzae type b vaccine, conjugate unspecified formulationOttoniel Arias MD Work Phone: [phone]07-11-2001measles, mumps and rubella virus vaccineMuhamid Hugo PANG Work Phone: [phone] HospitalPwmqpy27-39-2031fylwkyrjyn, tetanus toxoids and acellular pertussis vaccine, unspecified formulationMuhamid Hugo PANG Work Phone: [facility] HospitalRvqoyc30-73-5208sfyeeedfn B vaccine, pediatric or pediatric/adolescent dosageMuadrienne Arias MD Work Phone: [phone] HospitalUyygpx70-17-5523gfpioabakd vaccine, inactivatedMuhamid Hugo PANG Work Phone: [phone]96[facility] HospitalLkflcd52-19-6465kwcgrqnmbm, tetanus toxoids and acellular pertussis vaccine, unspecified formulationMuhamid Hugo PANG Work Phone: [phone] HospitalQboqbd56-13-4051aalftxcqbea influenzae type b vaccine, conjugate unspecified formulationMuadrienne Arias MD Work Phone: [phone] HospitalEluzgu12-99-4164ihmopvvkf B vaccine, pediatric or pediatric/adolescent dosageMuadrienne Arias MD Work Phone: [phone] HospitalCrxrpr50-99-8535xarlqfbdfg vaccine, inactivatedMuadrienne Arias MD Work Phone: [phone] HospitalIxbszd65-25-4367wspqmszrmz, tetanus toxoids and acellular pertussis vaccine, unspecified formulationMuadrienne Arias MD Work Phone: [phone] HospitalDwdvpv69-44-6847szjbcgefwld influenzae type b vaccine, conjugate unspecified formulationMuhamholley Arias MD Work Phone: [facility] HospitalZhynja97-89-4045sptvackrr B vaccine, pediatric or pediatric/adolescent dosageMuadrienne Arias MD Work Phone: [phone] HospitalGpbvqu14-92-6140bviyprmvlc vaccine, unspecified formulationMuadrienne Arias MD Work Phone: [facility] HospitalZvsumg99-81-9841yhogxvujq B vaccine, pediatric or pediatric/adolescent dosageMuadrienne Arias MD Work Phone: [facility] HospitalBucky BoxNEGATED: Highlighted row has not occurred!49-40-3158Hmtkelxpd Vaccine, Quadrivalent, AdjuvantedMuhamid Hugo PANG Work Phone: [facility] HospitalBucky BoxComment on above:Deferred: Patient decision Payers DatePayer CategoryPayerPolicy [id number] Care Other (unspecified) [id number] Health Insurance [facility] [employer] [id number] 2022-Present [phone] [address] [address] [place] [address] [id number]8-7242Rokvcnx Health Insurance [id number] 2.16.840.7.58532[id number] 2.16.840.1.093355.3.57[id number] 2.16.840.1.665447.3.57[id number] 2..840.1.244761.3.579.2.5[id number] 2.16.840.1.275159.3.57[id number] 2.16.840.1.603601.3.57[id number] 2.16.840.1.317474.3.57[id number] 2.16.840.1.264185.3.57[id number] 2.16.840.1.185720.3.57[id number] 2.16.840.1.382941.3.57[id number] 2.16.840.1.826416.3.579.2.948703-04-6345Gygrefg38329790 2.16840.1.750344.3.579.2.663973-27-0897Briickw799995030 2.16840.1.528583.3.579.[id number] 2.840.1.484925.3.579.2.569494-99-3973Ufypuym747231931 2.840.1.387301.3.57[id number] 2.840.1.402835.3.579.2.13[id number] 2.840.1.275362.3.579.2.030[id number] 2.16840.1.544378.3.579.2.94[id number] 2.840.1.634373.3.579.2.363718-22-0087Fbxgrgf18940105 2.840.1.886750.3.579.2.6[id number] 2.840.1.078089.3.579.2.5[id number] 2.16840.1.485868.3.579.2.597346-58-1181Jbtrxlt909765010 2.16840.1.054278.3.579.2.862753-30-4288Occpyom132699972 2.16.840.1.379782.3.579.2.634722-00-4753Wmcgdtz984468512 2.16.840.1.584500.3.579.2.[id number] 2.16.840.1.473881.3.579.2.109961-62-6238Bnoapld72997352 2.16.840.1.407608.3.579.2.85416-44-0548Wctpvai42520737 2.16.840.1.259296.3.579.2.04414-40-6054Vjeghzb13824537 2.16.840.1.136941.3.579.2.71371-73-9010Avrlhaj24801786 2.16.840.1.014830.3.579.2.01275-91-4272Rzzlhkp87001021 2.16.840.1.231956.3.579.2.77048-57-6365Xcfxtnh97626498 2.16.840.1.252303.3.579.2.19522-11-9198Idnbenk46608255 2.16.840.1.608711.3.579.2.67119-07-7210Fqfeavy0575663 2.16.840.1.627322.3.579.2.30834-68-3131Rlkr-sgeHnqjcyi12409790 2.16.840.1.745881.3.579.2.318Ehlhjav35804203 2.16840.1.959362.3.579.2.531 Social History DateTypeDetailFacilityUnknown if ever smokedCitymart - Inspiring solutions to transform cities Other Start: 09-12-2024 End: 32-35-4268Org Assigned At BirthNoChronogolf Other Start: 45-18-2116Jusqutc smoking status NHISUnknown if ever smokedSuburban Community Hospital & Brentwood Hospitaltart: 23-06-9372Fmt Assigned At BirthFeKindred Hospital Daytontart: 86-49-9654Ajwtxdu smoking status NHISSmokes tobacco dailyDetwiler Memorial Hospital System End: 60-35-2687Gkgnjrj of tobacco useCigarette SmokerDetwiler Memorial Hospital System Start: 07-12-2024 End: 03-82-2059Fffhszc use and exposureSmokeless tobacco non-userDetwiler Memorial Hospital SystemStart: 09-12-2024 End: 64-97-0195Qsuzhftey beverage intakeEx-drinker (finding)[facility] SystemStart: 09-12-2024 End: 54-73-7143Ipiwuef of Social functionOhioHealth Dublin Methodist HospitalHas the electric, gas, oil, or water company threatened to shut off services in your home in past 12MoNKettering Health Hamilton SystemHow often to you have a drink containing alcohol?NeverOhioHealth [facility] Methodist HospitalHow many standard drinks containing alcohol do you have on a typical day?Patient does not drinkDetwiler Memorial Hospital SystemStart: 40-25-6377Mrodjks CommentPatient just found out she was [facility] SystemStart: 98-95-7642Eyn assigned at birthNot on file [facility] ApniCure Weill Cornell Medical Centertart: 05-10-2015 End: 77-31-6762OesOccbvo (finding)[facility] SystemStart: 01-29-2024 End: 49-46-6117Gsfsdpz smoking status NHISEx-smokerDetwiler Memorial Hospital System End: 10-57-6728Iatxqih of tobacco useCurrent smokerDetwiler Memorial Hospital SystemStart: 11-05-2024 End: 51-44-9453Jfqdadyne beverage intakeCurrent drinker of alcohol (finding) [facility] SystemHow often to you have a drink containing alcohol?2-4 times a monthDetwiler Memorial Hospital SystemHow many standard drinks containing alcohol do you have on a typical day?1 or 2PCleveland Clinic Union Hospital SystemStart: 11-05-2024 Alcohol Commentx1/weekDetwiler Memorial Hospital SystemHow hard is it for you to pay for the very basics like food, housing, medical care, and heatingNot very hard [facility] ApniCure SystemStart: 49-99-0749Mxzztxr CommentrarelyPCleveland Clinic Union Hospital SystemStart: 43-14-3830NpkpuzhvlAvyCdqrlv Health SystemStart: 01-39-3432Pmceghb smoking status NHISNever smoked tobaccoHonorhealth Scottsdale [facility] Karma Gaming(I/We) worried whether (my/our) food would run out before (I/we) got money to buy more.Never trueBon [facility] CenterCastlerock REO [facility] Goals DatePatient GoalDesired Activity/StatePersonal health goalComment on above: Evaluation of progress towards goal: Plan to return home with spouse. Functional Status LdeePqqfrjrupzXibvswCdtvhcyq24-02-5143Wrxiplcnjf statusPatient at Baseline [facility] Work Phone: [phone]ragvqrhg statusDisability Status Patient Not at BaselineOhiohealth Van Wert Hospital Work Phone: [facility] Status PlgzEuqccvqcwjQtppwnTxbswcvz61-85-1694Jqcfadewo functionCognitive Status Patient at BaselineOhiohealth Van [facility] Hospital Work Phone: Clinical Notes 07-22-2023 to 06-20-2025 Note Date & DnjaExnbMwexjixe05-17-6724 Hospital Discharge instructions* Discharge Instructions* Jocelyn De Guzman APRN - CNP - 06/20/2025 2:57 PM EDT Please call [facility] tomorrow for outpatient follow-up. Your ultrasound today [...] through Care Everywhere. * Cannabinoid Hyperemesis Syndrome (Thai) documented in this encounterBon [facility]08-22-2025 Miscellaneous Notes* Telephone Encounter - Lacy Sanches CNA - 05/26/2025 8:49 AM EDT Attempted to call patient with no answer. Left voicemail to call office. ----- Message from VIJAYA Schaefer sent at 05/22/2025 7:48 PM EDT ----- Labs are wnl ----- Message ----- From: Lab, Background User Sent: 05/19/2025 6:41 PM EDT To: VIJAYA Schaefer documented in this encounterOhioHealth [facility] Hospital08-22-2025 Telephone encounter Note* Telephone Encounter - Lacy Sanches CNA - 05/26/2025 8:49 AM EDT Attempted to call patient with no answer. Left voicemail to call office. ----- Message from VIJAYA Schaefer sent at 05/22/2025 7:48 PM EDT ----- Labs are wnl ----- Message ----- From: Lab, Background User Sent: 05/19/2025 6:41 PM EDT To: VIJAYA Schaefer [facility]08-01-2025 History of Present illness Narrative* VIJAYA Schaefer [...] discharge follow up. She was admitted to [facility] for hyperemesis cannabis syndrome. She had [...] VIJAYA Schaefer 05/07/25 1321 documented in this encounterOhioHealth Dublin [facility] Hospital07-25-2025 History of Present illness Narrative* Bryant Hines PA-C - 04/28/2025 1:30 PM EDT [facility] Neurology Office Note 04/26/2025 2:10 PM Patient info: Yolanda Villanueva is a 25 y.o. female Account No.: [id number] Acct: : 2000 PCP: OTTONIEL ARIAS MD [...] as colitis/enteritis. Patient was then transferred to [facility] for further management. Follow up 12/21/24 [...] Hines PA-C 04/28/25 1409 documented in this encounterOhioHealth Dublin Methodist Hospital07-23-2025 History of Present illness Narrative* Jo Berry [...] to singh for help at this time. Aviation Electronic Warfare Operator to bedside. Patient noted to be having a seizure, sports book writer requested additional staff at bedside. Multiple RNs, Vashti RN advertising supervisor, Mari gas station manager, and Jocelyn CHARLTON all at bedside. Patient was positioned to left side. HR 122, BP 150/73, SPO2 97%. Patient is able to speak to sports book writer and follow commands following seizure. * Veronique Lyn RN - 04/26/2025 6:42 AM EDT Aviation Electronic Warfare Operator to bedside for morning assessment. Patient is resting in bed. Patient is A&O x4. Breathing is regular and unlabored. Abdomen is soft and tender, patient reports generalized abdominal aching. Patient does report feeling nauseous. Patient states zofran does not work for her, sports book writer will request new orders. Patient denies [...] is set. Care ongoing. documented in this encounterRiverside [facility]07-23-2025 Hospital Discharge instructions* Discharge Instructions* Jocelyn De Guzman APRN - CNP - 04/26/2025 3:56 PM EDT Stop smoking marijuana, this will help prevent further episodes of vomiting. Take your seizure medications as prescribed. Follow up with your pcp. * Attachments The following attachments cannot be sent through Care Everywhere. * Cannabinoid Hyperemesis Syndrome (Thai) documented in this encounterRiverside Tappahannock [facility]06-11-2025 History of Present illness Narrative* Bryant Hines PA-C - 03/15/2025 10:30 [facility] 03/14/2025 11:55 AM Patient info: Yolanda Villanueva is a 24 y.o. female Account No.: [id number] Acct: : 2000 PCP: OTTONIEL ARIAS MD [...] as colitis/enteritis. Patient was then transferred to [facility] for further management. Follow up 12/21/24 [...] Hines PA-C 03/15/25 1046 documented in this encounterOhioHealth Dublin Methodist Hospital03-19-2025 History of Present illness Narrative* Bryant Hines PA-C - 12/21/2024 10:30 AM EDT [facility] Neurology Office Note 12/20/2024 9:58 AM Patient info: Yolanda Villanueva is a 24 y.o. female Account No.: [id number] Acct: : 2000 PCP: OTTONIEL ARIAS MD [...] as colitis/enteritis. Patient was then transferred to [facility] for further management. Past Medical Hx: [...] Hines PA-C 12/25/24 1726 documented in this [facility]03-04-2025 Miscellaneous Notes* Telephone Encounter - Vashti Price - 12/06/2024 2:[address] Bragg Reschedule: Patient's appointment with Dr. Bragg on December 20, 2024 needs to be rescheduled at this time due toprovider out of clinic. Contacted patient and offered to reschedule for next available with Dr. Bragg or Evaristo, per advertising supervisor's instruction. Patient is rescheduled to see Bryant Hines at our [place] location on 12/21/24 at 10:30a for 60 minutes documented in this [facility]03-04-2025 Telephone encounter Note* Telephone Encounter - Vashti Price - 12/06/2024 2:[address] Bragg Reschedule: Patient's appointment with Dr. Bragg on December 20, 2024 needs to be rescheduled at this time due toprovider out of clinic. Contacted patient and offered to reschedule for next available with Dr. Bragg or Evaristo, per advertising supervisor's instruction. Patient is rescheduled to see Bryant Hines at our [place] location on 12/21/24 at 10:30a for 60 minutes [facility]02-18-2025 Miscellaneous Notes* Telephone Encounter - Satnam Anderson CMA - 11/22/2024 11:32 AM EST Patient called make a new appt. Referral placed today. Call back [phone] * Telephone Encounter - Jordana Menezes - [...] getting the labs done. documented in this encounterOhioHealth Dublin Methodist Hospital02-18-2025 Telephone encounter Note* Telephone Encounter - Satnam Anderson CMA - 11/22/2024 11:32 AM EST Patient called make a new appt. Referral placed today. Call back [phone] [facility]02-18-2025 Telephone encounter Note* Telephone Encounter - Jordana [...] with us after getting the labs done. [facility]02-18-2025 History of Present illness Narrative* Janay Mustafa, AUTO TRAVEL COUNSELOR-BEEF GRINDER - 11/22/2024 11:00 AM EST Subjective Patient ID: Yolanda Villanueva is a 24 y.o. female. The patient is here today for discharge followup from hospital. Transition of Care Med Rec completed? Yes Discharged medications: Medications have been reviewed and reconciled with the most recent facilitydischarge document. HPI Yolanda presents with her spouse, after admission to [facility] on 11/05/2024-11/12/2024. She was admitted for [...] for nephrology appointment. Additionally, sees psychiatry at [facility]. Yolanda states she feels dizzy when bends [...] ear normal. Nose: Rhinorrhea present. Mouth/Throat: Lips: [place]. Mouth: Mucous membranes are moist. 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 VIJAYA House 11/22/24 1249 documented in this encounterOhioHealth Dublin Methodist Hospital02-11-2025 Miscellaneous Notes* Telephone Encounter - Nicole Cheng [...] Disease and Neurology Name of Discharging Facility: [facility] Date of Facility Discharge: 11.05.24-11.12.24 Date of Interactive Contact and Name of Personnel And Payroll Technician: 11.15.24 0941 Spoke with the patient. Medication [...] to have done 11/19/2024 documented in this encounterOhioHealth Dublin Methodist Hospital02-11-2025 Telephone encounter Note* Telephone Encounter - Nicole [...] Disease and Neurology Name of Discharging Facility: [facility] Date of Facility Discharge: 11.05.24-11.12.24 Date of Interactive Contact and Name of Personnel And Payroll Technician: 11.15.24 0941 Spoke with the patient. Medication [...] Other Services Utilized/Needed by the Patient: -None [facility]02-11-2025 Telephone encounter Note* Telephone Encounter - VIJAYA House - 11/15/2024 9:41 AM EST Order were placed for labs, to have done 11/19/2024 [facility]02-08-2025 Nurse Note* Yadira Vigil RN - 11/12/2024 2:43 PM EST AVS reviewed with patient and spouse. All questions addressed, provided vimpat script, belongings sent with patient. Patient declined staff assistance to vehicle. - Yadira Vigil RN 11/12/24 2:45 PM documented in this encounterOhioHealth Dublin Methodist Hospital02-08-2025 Hospital course Narrative* Oliverio Dennis MD - 11/12/2024 11:59 AM EST Inpatient Discharge Summary BRIEF OVERVIEW Admitting Provider: Marie Singh, DO Discharge Provider: Oliverio Dennis M.D Primary Care Physician at Discharge: OTTONIEL ARIAS MD [phone] Admission Date: 11/05/2024 Discharge Date: 11/12/2024 Primary [...] rash.Once stabilized was transferred to floor under [facility] as primary on 11/07/2024. 1. Breakthrough [...] This note was completed using a voice paper ruler system. Every effort was made to ensure accuracy. However, inadvertent computerized paper ruler errors may be present. documented in this encounterProctor HospitalApricot Trees [id number] Miscellaneous Notes* Plan of Care - Yadira Vigil RN - 11/12/2024 10:54 AM EST Problem: Pain Goal: Patient goal is pain score less than 4, able to rest, and participant in treatment plan as appropriate Description: INTERVENTIONS: 1. Encourage patient or legal event sales representative to report early pain and ask [...] per policy 9. Teach patient or legal event sales representative interventions for comforting Outcome: Progressing Note: [...] at the bedside 7. Instruct patient/ patient event sales representative about use of safety devices 8. Include patient/ patient event sales representative in decisions related to safety Outcome: Progressing Note: Evaluation of progress towards goal: Bed locked in lowest position, call light within reach, belongings at bedside, hourly rounding maintained, patient independent Problem: Knowledge Deficit Goal: Patient/patient event sales representative demonstrates understanding of disease process, treatment [...] Score of =/> 25 or indicated by [facility] Assessment Goal: Patient should be free from fall Description: Interventions: 1. [place] to environment 2. Hourly rounds addressing the [...] non-skid footwear 11. Teach patient and patient event sales representative to maintain environment for safety and [...] (cane, walker) within reach 19. Request patient event sales representative bring adaptive equipment/mobility aids from home or obtain and provide as needed 20. Consult pharmacy regarding effects of med's affecting mobility, cognition, and alternatives 21. Obtain physician order for PT if risk factors associated with mobility are present 22. Obtain physician order for OT as appropriate 23. Utilize diversional activities 24. Educate patient and patient event sales representative how to maintain a safe environment during visitationtimes (notify nurse prior to leaving bedside) 25. Consider appropriateness of medical or non-auditor medical claims 26. Set up voiding schedule as appropriate (every 2 hours) Outcome: Progressing Note: Evaluation of progress towards goal: Patient remains free from falls at this time, hourly rounding maintained Problem: Neurosensory - Adult Goal: Absence of seizures Description: INTERVENTIONS 1. [place] and maintain seizure precautions 2. Monitor for seizure activity 3. Administer anti-seizure medications as ordered 4. Monitor neurological status Outcome: Progressing Note: Evaluation of progress towards goal: [place] and maintain seizure precautions. Monitor for seizure activity. Administer anti-seizure medications as ordered. Monitor neurological status * Plan of Care - Sam Jane RN - 11/12/2024 12:12 AM EST Problem: Pain Goal: Patient goal is pain score less than 4, able to rest, and participant in treatment plan as appropriate Description: INTERVENTIONS: 1. Encourage patient or legal event sales representative to report early pain and ask [...] per policy 9. Teach patient or legal event sales representative interventions for comforting Outcome: Progressing Note: [...] at the bedside 7. Instruct patient/ patient event sales representative about use of safety devices 8. Include patient/ patient event sales representative in decisions related to safety Outcome: Progressing Note: Evaluation of progress towards goal: patient remains free from injury at this time. Safety precautions in place. Problem: Knowledge Deficit Goal: Patient/patient event sales representative demonstrates understanding of disease process, treatment plan,medications, and discharge instructions Description: INTERVENTIONS 1. Complete learning assessment and assess knowledge base 2. Provide teaching at level of understanding 3. Provide teaching via preferred learning method(s) Outcome: Progressing Note: Evaluation of progress towards goal: [employer] Electronic [employer] Operator educated pt on admission disease, medications, treatment, [...] be free from fall Description: Interventions: 1. [place] to environment 2. Hourly rounds addressing the [...] non-skid footwear 11. Teach patient and patient event sales representative to maintain environment for safety and [...] (cane, walker) within reach 19. Request patient event sales representative bring adaptive equipment/mobility aids from home or obtain and provide as needed 20. Consult pharmacy regarding effects of med's affecting mobility, cognition, and alternatives 21. Obtain physician order for PT if risk factors associated with mobility are present 22. Obtain physician order for OT as appropriate 23. Utilize diversional activities 24. Educate patient and patient event sales representative how to maintain a safe environment during visitationtimes (notify nurse prior to leaving bedside) 25. Consider appropriateness of medical or non-auditor medical claims 26. Set up voiding schedule as appropriate (every 2 hours) Outcome: Progressing Note: Evaluation of progress towards goal: [employer] Electronic War[employer] Operator assessed pt fall precautions in the beginning [...] Goal: Absence of seizures Description: INTERVENTIONS 1. [place] and maintain seizure precautions 2. Monitor for [...] needed 4. Reorient patient post seizure 5. [place] and maintain seizure precautions 6. Instruct patient/legal event sales representative to notify RN of any seizure activity 7. Instruct patient/legal event sales representative to call for assistance with activity [...] Description: INTERVENTIONS: 1. Encourage patient or legal event sales representative to report early pain and ask [...] per policy 9. Teach patient or legal event sales representative interventions for comforting Outcome: Progressing Note: [...] at the bedside 7. Instruct patient/ patient event sales representative about use of safety devices 8. Include patient/ patient event sales representative in decisions related to safety Outcome: Progressing Note: Evaluation of progress towards goal: Pt remains free of falls/ injury Problem: Knowledge Deficit Goal: Patient/patient event sales representative demonstrates understanding of disease process, treatment plan,medications, and discharge instructions Description: INTERVENTIONS 1. Complete learning assessment and assess knowledge base 2. Provide teaching at level of understanding 3. Provide teaching via preferred learning method(s) Outcome: Progressing Note: Evaluation of progress towards goal: Patient involved and informed about disease process, medications, and treatment plan. [employer] Operator to update patient throughout the shift regarding [...] Score of =/> 25 or indicated by [facility] Assessment Goal: Patient should be free from fall Description: Interventions: 1. [place] to environment 2. Hourly rounds addressing the [...] non-skid footwear 11. Teach patient and patient event sales representative to maintain environment for safety and [...] (cane, walker) within reach 19. Request patient event sales representative bring adaptive equipment/mobility aids from home or obtain and provide as needed 20. Consult pharmacy regarding effects of med's affecting mobility, cognition, and alternatives 21. Obtain physician order for PT if risk factors associated with mobility are present 22. Obtain physician order for OT as appropriate 23. Utilize diversional activities 24. Educate patient and patient event sales representative how to maintain a safe environment during visitationtimes (notify nurse prior to leaving bedside) 25. Consider appropriateness of medical or non-auditor medical claims 26. Set up voiding schedule as appropriate [...] Goal: Absence of seizures Description: INTERVENTIONS 1. [place] and maintain seizure precautions 2. Monitor for [...] needed 4. Reorient patient post seizure 5. [place] and maintain seizure precautions 6. Instruct patient/legal event sales representative to notify RN of any seizure activity 7. Instruct patient/legal event sales representative to call for assistance with activity [...] Description: INTERVENTIONS: 1. Encourage patient or legal event sales representative to report early pain and ask [...] per policy 9. Teach patient or legal event sales representative interventions for comforting Outcome: Progressing Note: [...] at the bedside 7. Instruct patient/ patient event sales representative about use of safety devices 8. Include patient/ patient event sales representative in decisions related to safety Outcome: Progressing Note: Evaluation of progress towards goal: patient remains free from injury at this time. Safety precautions in place. Problem: Knowledge Deficit Goal: Patient/patient event sales representative demonstrates understanding of disease process, treatment plan,medications, and discharge instructions Description: INTERVENTIONS 1. Complete learning assessment and assess knowledge base 2. Provide teaching at level of understanding 3. Provide teaching via preferred learning method(s) Outcome: Progressing Note: Evaluation of progress towards goal: [employer] Operator assessed pt risk for infection in the [...] Progressing Note: Evaluation of progress towards goal: [employer] Electronic War[employer] Operator educated pt on admission disease, medications, treatment, and discharge planning. Will continue to monitor. Problem: Moderate - High Risk Fall Score Description: Mack Fall Score of =/> 25 or indicated by [facility] Assessment Goal: Patient should be free from fall Description: Interventions: 1. [place] to environment 2. Hourly rounds addressing the [...] non-skid footwear 11. Teach patient and patient event sales representative to maintain environment for safety and [...] (cane, walker) within reach 19. Request patient event sales representative bring adaptive equipment/mobility aids from home or obtain and provide as needed 20. Consult pharmacy regarding effects of med's affecting mobility, cognition, and alternatives 21. Obtain physician order for PT if risk factors associated with mobility are present 22. Obtain physician order for OT as appropriate 23. Utilize diversional activities 24. Educate patient and patient event sales representative how to maintain a safe environment during visitationtimes (notify nurse prior to leaving bedside) 25. Consider appropriateness of medical or non-auditor medical claims 26. Set up voiding schedule as appropriate (every 2 hours) Outcome: Progressing Note: Evaluation of progress towards goal: [employer] Operator assessed pt fall precautions in the beginning [...] Goal: Absence of seizures Description: INTERVENTIONS 1. [place] and maintain seizure precautions 2. Monitor for [...] needed 4. Reorient patient post seizure 5. [place] and maintain seizure precautions 6. Instruct patient/legal event sales representative to notify RN of any seizure activity 7. Instruct patient/legal event sales representative to call for assistance with activity [...] Description: INTERVENTIONS: 1. Encourage patient or legal event sales representative to report early pain and ask [...] per policy 9. Teach patient or legal event sales representative interventions for comforting Outcome: Progressing Note: [...] at the bedside 7. Instruct patient/ patient event sales representative about use of safety devices 8. Include patient/ patient event sales representative in decisions related to safety Outcome: [...] hygiene technique. 7. Identify and instruct patient/patient event sales representative in use of appropriate isolation precautionsfor identified infection/symptoms. 8. Provide and discuss with patient/patient event sales representative on educational MDRO sheet. 9. Encourage and monitor nutritional status daily and consult workgroup leader if indicated. 10. Implement neutropenic guidelines as needed. Outcome: Completed Note: Evaluation of progress towards goal: patient free of signs of infection Problem: Knowledge Deficit Goal: Patient/patient event sales representative demonstrates understanding of disease process, treatment [...] Score of =/> 25 or indicated by [facility] Assessment Goal: Patient should be free from fall Description: Interventions: 1. [place] to environment 2. Hourly rounds addressing the [...] non-skid footwear 11. Teach patient and patient event sales representative to maintain environment for safety and [...] (cane, walker) within reach 19. Request patient event sales representative bring adaptive equipment/mobility aids from home or obtain and provide as needed 20. Consult pharmacy regarding effects of med's affecting mobility, cognition, and alternatives 21. Obtain physician order for PT if risk factors associated with mobility are present 22. Obtain physician order for OT as appropriate 23. Utilize diversional activities 24. Educate patient and patient event sales representative how to maintain a safe environment during visitationtimes (notify nurse prior to leaving bedside) 25. Consider appropriateness of medical or non-auditor medical claims 26. Set up voiding schedule as appropriate [...] on patient's door 9. Provide patient/ patient event sales representative with isolation education. Outcome: Completed Note: [...] Goal: Absence of seizures Description: INTERVENTIONS 1. [place] and maintain seizure precautions 2. Monitor for [...] needed 4. Reorient patient post seizure 5. [place] and maintain seizure precautions 6. Instruct patient/legal event sales representative to notify RN of any seizure activity 7. Instruct patient/legal event sales representative to call for assistance with activity based on assessment Outcome: Progressing Note: Evaluation of progress towards goal: patient free from seizures Problem: Neurosensory - Adult Goal: Absence of seizures Description: INTERVENTIONS 1. [place] and maintain seizure precautions 2. Monitor for [...] needed 4. Reorient patient post seizure 5. [place] and maintain seizure precautions 6. Instruct patient/legal event sales representative to notify RN of any seizure activity 7. Instruct patient/legal event sales representative to call for assistance with activity [...] Description: INTERVENTIONS: 1. Encourage patient or legal event sales representative to report early pain and ask [...] per policy 9. Teach patient or legal event sales representative interventions for comforting Outcome: Progressing Note: [...] at the bedside 7. Instruct patient/ patient event sales representative about use of safety devices 8. Include patient/ patient event sales representative in decisions related to safety Outcome: [...] hygiene technique. 7. Identify and instruct patient/patient event sales representative in use of appropriate isolation precautionsfor identified infection/symptoms. 8. Provide and discuss with patient/patient event sales representative on educational MDRO sheet. 9. Encourage and monitor nutritional status daily and consult workgroup leader if indicated. 10. Implement neutropenic guidelines as needed. Outcome: Progressing Note: Evaluation of progress towards goal: No S/S of infection at this time Problem: Knowledge Deficit Goal: Patient/patient event sales representative demonstrates understanding of disease process, treatment [...] on patient's door 9. Provide patient/ patient event sales representative with isolation education. Outcome: Progressing Note: Evaluation of progress towards goal: Hand hygiene being performed before and after patient care Problem: Moderate - High Risk Fall Score Description: Mack Fall Score of =/> 25 or indicated by [facility] Assessment Goal: Patient should be free from fall Description: Interventions: 1. [place] to environment 2. Hourly rounds addressing the [...] non-skid footwear 11. Teach patient and patient event sales representative to maintain environment for safety and [...] (cane, walker) within reach 19. Request patient event sales representative bring adaptive equipment/mobility aids from home or obtain and provide as needed 20. Consult pharmacy regarding effects of med's affecting mobility, cognition, and alternatives 21. Obtain physician order for PT if risk factors associated with mobility are present 22. Obtain physician order for OT as appropriate 23. Utilize diversional activities 24. Educate patient and patient event sales representative how to maintain a safe environment during visitationtimes (notify nurse prior to leaving bedside) 25. Consider appropriateness of medical or non-auditor medical claims 26. Set up voiding schedule as appropriate [...] Goal: Absence of seizures Description: INTERVENTIONS 1. [place] and maintain seizure precautions 2. Monitor for [...] needed 4. Reorient patient post seizure 5. [place] and maintain seizure precautions 6. Instruct patient/legal event sales representative to notify RN of any seizure activity 7. Instruct patient/legal event sales representative to call for assistance with activity [...] Description: INTERVENTIONS: 1. Encourage patient or legal event sales representative to report early pain and ask [...] per policy 9. Teach patient or legal event sales representative interventions for comforting Outcome: Progressing Note: [...] at the bedside 7. Instruct patient/ patient event sales representative about use of safety devices 8. Include patient/ patient event sales representative in decisions related to safety Outcome: [...] hygiene technique. 7. Identify and instruct patient/patient event sales representative in use of appropriate isolation precautionsfor identified infection/symptoms. 8. Provide and discuss with patient/patient event sales representative on educational MDRO sheet. 9. Encourage and monitor nutritional status daily and consult workgroup leader if indicated. 10. Implement neutropenic guidelines as needed. Outcome: Progressing Note: Evaluation of progress towards goal: Patient is afebrile at this time with no signs or symptoms of infection. Will continue to monitor for infection and keep a clean environment for patient. Problem: Knowledge Deficit Goal: Patient/patient event sales representative demonstrates understanding of disease process, treatment [...] Score of =/> 25 or indicated by [facility] Assessment Goal: Patient should be free from fall Description: Interventions: 1. [place] to environment 2. Hourly rounds addressing the [...] non-skid footwear 11. Teach patient and patient event sales representative to maintain environment for safety and [...] (cane, walker) within reach 19. Request patient event sales representative bring adaptive equipment/mobility aids from home or obtain and provide as needed 20. Consult pharmacy regarding effects of med's affecting mobility, cognition, and alternatives 21. Obtain physician order for PT if risk factors associated with mobility are present 22. Obtain physician order for OT as appropriate 23. Utilize diversional activities 24. Educate patient and patient event sales representative how to maintain a safe environment during visitationtimes (notify nurse prior to leaving bedside) 25. Consider appropriateness of medical or non-auditor medical claims 26. Set up voiding schedule as appropriate [...] Description: INTERVENTIONS: 1. Encourage patient or legal event sales representative to report early pain and ask [...] per policy 9. Teach patient or legal event sales representative interventions for comforting Outcome: Progressing Note: [...] at the bedside 7. Instruct patient/ patient event sales representative about use of safety devices 8. Include patient/ patient event sales representative in decisions related to safety Outcome: [...] hygiene technique. 7. Identify and instruct patient/patient event sales representative in use of appropriate isolation precautionsfor identified infection/symptoms. 8. Provide and discuss with patient/patient event sales representative on educational MDRO sheet. 9. Encourage and monitor nutritional status daily and consult workgroup leader if indicated. 10. Implement neutropenic guidelines as needed. Outcome: Progressing Note: Evaluation of progress towards goal: Patient displays no signs of infection. Able to demonstrate appropriate hand hygiene.Will continue to monitor patient, labs, and mews score. Problem: Knowledge Deficit Goal: Patient/patient event sales representative demonstrates understanding of disease process, treatment [...] Score of =/> 25 or indicated by [facility] Assessment Goal: Patient should be free from fall Description: Interventions: 1. [place] to environment 2. Hourly rounds addressing the [...] non-skid footwear 11. Teach patient and patient event sales representative to maintain environment for safety and [...] (cane, walker) within reach 19. Request patient event sales representative bring adaptive equipment/mobility aids from home or obtain and provide as needed 20. Consult pharmacy regarding effects of med's affecting mobility, cognition, and alternatives 21. Obtain physician order for PT if risk factors associated with mobility are present 22. Obtain physician order for OT as appropriate 23. Utilize diversional activities 24. Educate patient and patient event sales representative how to maintain a safe environment during visitationtimes (notify nurse prior to leaving bedside) 25. Consider appropriateness of medical or non-auditor medical claims 26. Set up voiding schedule as appropriate (every 2 hours) Outcome: Progressing Note: Evaluation of progress towards goal: Patient fall risk safety measures have been implemented.Continuing to monitor patient. Problem: Neurosensory - Adult Goal: Absence of seizures Description: INTERVENTIONS 1. [place] and maintain seizure precautions 2. Monitor for [...] states that she had been hospitalized at [facility] in [place] last summer. She has continued with outpatient treatment at [facility] in [place]. She has been seeing a psychiatric nurse practitioner and has also seen a therapist on an irregular basis. Shehas been on multiple psychotropic medications including Paxil, Effexor, olanzapine, Lamictal and Abilify. She states that she had been diagnosed with bipolar disorder at [facility]. She states family history is positive [...] note were not included. DISCHARGE PLANNING NOTE Aviation Electronic Warfare Operator met with patient and , introduced self, and explained role. Patient is alert and oriented, sitting in bed, eating lunch, cooperative. Supportive at bedside. Patient and educated on safe discharge plan. Pt admitted 11/05/2024 with Seizure ([facility] [R56.9] per chart review. Consults: Infectious Disease, Nephrology, Neurology, Psychiatry, and Rheumatology Discharge Barriers per Daily Transition Rounds and chart review: LR, medication adjustment, IV Mag,IV K Past Medical History: Diagnosis Date Anxiety March 2013 Depression March 2013 Eczema 2009 GERD (gastroesophageal reflux disease) Seizures ([facility] Visual impairment 2004 Prior to admission patient was living with spouse/significant other and self care. Medical equipment patient used prior to admission includes: None. Patient was active and independent prior to admission. Patient denies need for transportation/ food/ prescription medication assistance resources. Patient is planning to transition home with self care/family assist as needed. PCP: OTTONIEL ARIAS MD Pharmacy: [facility] [place] [facility] PCP and pharmacy confirmed with patient. CN [...] patient, introduced self and explained role as psych coordinator/liaison. Began an interview in order to complete a psychosocial assessment. Patient is a 24 year old female here for a workup after having a seizure. Psych consulted to reviewmedications as there is a concern for serotonin syndrome. When asked patient stated she is neither suicidal nor homicidal. Per patient she is treated for depression at [facility] in [place] where she is prescribed her psych medications. [...] Description: INTERVENTIONS: 1. Encourage patient or legal event sales representative to report early pain and ask [...] per policy 9. Teach patient or legal event sales representative interventions for comforting Outcome: Progressing Note: [...] at the bedside 7. Instruct patient/ patient event sales representative about use of safety devices 8. Include patient/ patient event sales representative in decisions related to safety Outcome: [...] hygiene technique. 7. Identify and instruct patient/patient event sales representative in use of appropriate isolation precautionsfor identified infection/symptoms. 8. Provide and discuss with patient/patient event sales representative on educational MDRO sheet. 9. Encourage and monitor nutritional status daily and consult workgroup leader if indicated. 10. Implement neutropenic guidelines as needed. Outcome: Progressing Note: Evaluation of progress towards goal: Patient afebrile. Monitoring lab values. Problem: Knowledge Deficit Goal: Patient/patient event sales representative demonstrates understanding of disease process, treatment [...] on patient's door 9. Provide patient/ patient event sales representative with isolation education. Outcome: Progressing Note: Evaluation of progress towards goal: Patient remains afebrile. Monitoring labs. Problem: Moderate - High Risk Fall Score Description: Mack Fall Score of =/> 25 or indicated by [facility] Assessment Goal: Patient should be free from fall Description: Interventions: 1. [place] to environment 2. Hourly rounds addressing the [...] non-skid footwear 11. Teach patient and patient event sales representative to maintain environment for safety and [...] (cane, walker) within reach 19. Request patient event sales representative bring adaptive equipment/mobility aids from home or obtain and provide as needed 20. Consult pharmacy regarding effects of med's affecting mobility, cognition, and alternatives 21. Obtain physician order for PT if risk factors associated with mobility are present 22. Obtain physician order for OT as appropriate 23. Utilize diversional activities 24. Educate patient and patient event sales representative how to maintain a safe environment during visitationtimes (notify nurse prior to leaving bedside) 25. Consider appropriateness of medical or non-auditor medical claims 26. Set up voiding schedule as appropriate [...] Goal: Absence of seizures Description: INTERVENTIONS 1. [place] and maintain seizure precautions 2. Monitor for [...] needed 4. Reorient patient post seizure 5. [place] and maintain seizure precautions 6. Instruct patient/legal event sales representative to notify RN of any seizure activity 7. Instruct patient/legal event sales representative to call for assistance with activity [...] Description: INTERVENTIONS: 1. Encourage patient or legal event sales representative to report early pain and ask [...] per policy 9. Teach patient or legal event sales representative interventions for comforting Outcome: Progressing Note: Evaluation of progress towards goal: Encourage patient or legal event sales representative to report early pain and ask [...] at the bedside 7. Instruct patient/ patient event sales representative about use of safety devices 8. Include patient/ patient event sales representative in decisions related to safety Outcome: [...] hygiene technique. 7. Identify and instruct patient/patient event sales representative in use of appropriate isolation precautionsfor identified infection/symptoms. 8. Provide and discuss with patient/patient event sales representative on educational MDRO sheet. 9. Encourage and monitor nutritional status daily and consult workgroup leader if indicated. 10. Implement neutropenic guidelines as needed. Outcome: Progressing Note: Evaluation of progress towards goal: Patient temperature measurement Q4, antibiotics given when indicated, hygiene maintained. Problem: Knowledge Deficit Goal: Patient/patient event sales representative demonstrates understanding of disease process, treatment [...] be free from fall Description: Interventions: 1. [place] to environment 2. Hourly rounds addressing the [...] non-skid footwear 11. Teach patient and patient event sales representative to maintain environment for safety and [...] (cane, walker) within reach 19. Request patient event sales representative bring adaptive equipment/mobility aids from home or obtain and provide as needed 20. Consult pharmacy regarding effects of med's affecting mobility, cognition, and alternatives 21. Obtain physician order for PT if risk factors associated with mobility are present 22. Obtain physician order for OT as appropriate 23. Utilize diversional activities 24. Educate patient and patient event sales representative how to maintain a safe environment during visitationtimes (notify nurse prior to leaving bedside) 25. Consider appropriateness of medical or non-auditor medical claims 26. Set up voiding schedule as appropriate [...] Description: INTERVENTIONS: 1. Encourage patient or legal event sales representative to report early pain and ask [...] per policy 9. Teach patient or legal event sales representative interventions for comforting Outcome: Progressing Note: [...] at the bedside 7. Instruct patient/ patient event sales representative about use of safety devices 8. Include patient/ patient event sales representative in decisions related to safety Outcome: [...] hygiene technique. 7. Identify and instruct patient/patient event sales representative in use of appropriate isolation precautionsfor identified infection/symptoms. 8. Provide and discuss with patient/patient event sales representative on educational MDRO sheet. 9. Encourage and monitor nutritional status daily and consult workgroup leader if indicated. 10. Implement neutropenic guidelines as needed. Outcome: Progressing Note: Evaluation of progress towards goal: Patient temperature measurement Q4, antibiotics given when indicated, hygiene maintained. Problem: Knowledge Deficit Goal: Patient/patient event sales representative demonstrates understanding of disease process, treatment [...] be free from fall Description: Interventions: 1. [place] to environment 2. Hourly rounds addressing the [...] non-skid footwear 11. Teach patient and patient event sales representative to maintain environment for safety and [...] (cane, walker) within reach 19. Request patient event sales representative bring adaptive equipment/mobility aids from home or obtain and provide as needed 20. Consult pharmacy regarding effects of med's affecting mobility, cognition, and alternatives 21. Obtain physician order for PT if risk factors associated with mobility are present 22. Obtain physician order for OT as appropriate 23. Utilize diversional activities 24. Educate patient and patient event sales representative how to maintain a safe environment during visitationtimes (notify nurse prior to leaving bedside) 25. Consider appropriateness of medical or non-auditor medical claims 26. Set up voiding schedule as appropriate [...] follow Brigida Rae MD PGY-4, Neurology Resident [facility] * Plan of Care - Nicole Guerrero RN - 11/05/2024 3:53 PM EST Problem: Pain Goal: Patient goal is pain score less than 4, able to rest, and participant in treatment plan as appropriate Description: INTERVENTIONS: 1. Encourage patient or legal event sales representative to report early pain and ask [...] per policy 9. Teach patient or legal event sales representative interventions for comforting Outcome: Progressing Note: [...] at the bedside 7. Instruct patient/ patient event sales representative about use of safety devices 8. Include patient/ patient event sales representative in decisions related to safety Outcome: [...] hygiene technique. 7. Identify and instruct patient/patient event sales representative in use of appropriate isolation precautionsfor identified infection/symptoms. 8. Provide and discuss with patient/patient event sales representative on educational MDRO sheet. 9. Encourage and monitor nutritional status daily and consult workgroup leader if indicated. 10. Implement neutropenic guidelines as needed. Outcome: Progressing Note: Evaluation of progress towards goal: Pt receiving antibiotics as ordered. Problem: Knowledge Deficit Goal: Patient/patient event sales representative demonstrates understanding of disease process, treatment [...] supplement as ordered 13. Collaborate with clinical workgroup leader 14. Include patient/ patient's event sales representative in decisions related to nutrition Outcome: [...] Score of =/> 25 or indicated by [facility] Assessment Goal: Patient should be free from fall Description: Interventions: 1. [place] to environment 2. Hourly rounds addressing the [...] non-skid footwear 11. Teach patient and patient event sales representative to maintain environment for safety and [...] (cane, walker) within reach 19. Request patient event sales representative bring adaptive equipment/mobility aids from home or obtain and provide as needed 20. Consult pharmacy regarding effects of med's affecting mobility, cognition, and alternatives 21. Obtain physician order for PT if risk factors associated with mobility are present 22. Obtain physician order for OT as appropriate 23. Utilize diversional activities 24. Educate patient and patient event sales representative how to maintain a safe environment during visitationtimes (notify nurse prior to leaving bedside) 25. Consider appropriateness of medical or non-auditor medical claims 26. Set up voiding schedule as appropriate (every 2 hours) Outcome: Progressing Note: Evaluation of progress towards goal: Fall precautions in place. Bed in low locked position. Call light in reach. Problem: Safety - Medical Restraint Goal: Remains free of injury from restraints (Restraint for Interference with Claim Rep) Description: INTERVENTIONS: 1. Determine that other, less [...] Free from restraint(s) (Restraint for Interference with Claim Rep) Description: INTERVENTIONS: 1. ONCE/SHIFT or MINIMUM Q12H: [...] Description: INTERVENTIONS: 1. Encourage patient or legal event sales representative to report early pain and ask [...] per policy 9. Teach patient or legal event sales representative interventions for comforting Outcome: Progressing Note: [...] at the bedside 7. Instruct patient/ patient event sales representative about use of safety devices 8. Include patient/ patient event sales representative in decisions related to safety Outcome: [...] hygiene technique. 7. Identify and instruct patient/patient event sales representative in use of appropriate isolation precautionsfor identified infection/symptoms. 8. Provide and discuss with patient/patient event sales representative on educational MDRO sheet. 9. Encourage and monitor nutritional status daily and consult workgroup leader if indicated. 10. Implement neutropenic guidelines as needed. Outcome: Progressing Note: Evaluation of progress towards goal: Lines and tubing are clean and maintained. Caps and dressing are changed when appropriate. Problem: Knowledge Deficit Goal: Patient/patient event sales representative demonstrates understanding of disease process, treatment [...] injury from restraints (Restraint for Interference with Claim Rep) Description: INTERVENTIONS: 1. Determine that other, less [...] Q2 checks on restraints. [facility] of Present illness Narrative* Joaquín Kenny [...] For questions please call: Answering Service at [phone] Or Office at [phone] This note was created with the assistance [...] FERRITIN 214 11/08/2024 Please contact me at [phone] (Office) or [phone] (Answering service) with any questions. Please feel free to contact me through [employer] chat during the daytime hours, if no response after 5 minutes then call the answering service. Nestor Ramsey MD [facility] This note was created with the assistance of a speech-recognition program. Although the intention is to generate a document that actually reflects the content of the visit, no guarantees can be provided that every mistake has been identified and corrected by editing. * Georgette Morris, AUTO TRAVEL COUNSELOR-BEEF GRINDER - 11/11/2024 12:45 PM EST Images from [...] Value Units Date/Time Resp Pathogens Panel/SARS CoV-2 [[id number]] (Abnormal) Collected: 11/11/24 0840 Specimen: Nasopharynx Updated: [...] 2 Not Detected Resp Pathogens Panel/SARS CoV-2 [[id number]] Collected: 11/05/24 0156 Specimen: Nasopharynx Updated: 11/05/24 [...] 2 Not Detected Mrsa Pcr nasal swab [[id number]] Collected: 11/05/24 0156 Specimen: Nasal Updated: 11/05/24 0340 Mrsa PCR Negative Urine culture [[id number]] Collected: 11/04/24 2257 Specimen: Urine, Clean Catch Midstream Updated: 11/06/24 1422 Culture 10,000 to 50,000 ORGANISMS/mL NORMAL URO GENITAL RAYMOND SARS/FLU A+B/RSV by NAAT/Molecular (M4RT Collection Tube) [[id number]] Collected: 11/04/24 1913 Specimen: Nasopharynx Updated: 11/04/242005 FLU A PCR Negative FLU B PCR Negative RSV by PCR Negative SARS CoV 2 BY PCR Not Detected Blood culture [[id number]] Collected: 11/04/24 181 Specimen: Blood Updated: 11/09/24 2238 Culture NO GROWTH 5 DAYS Blood culture [[id number]] Collected: 11/04/24 1715 Specimen: Blood Updated: 11/09/24 [...] From 7AM-7PM: Our team prefers to use [employer] for communication. From 7PM-7AM: Please call for our answering service. VIJAYA Lazar 11/11/24 3827 * Esau Barboza RPH - 11/11/2024 12:43 PM EST [facility] Department of Pharmacy Pharmacist to Physician Communication The dose of oseltamivir for influenza A has been changed to 75 mg once followed by 30 mg every 12 hours per the [facility] approved renal dosing guidelines, based on an [...] rash.Once stabilized was transferred to floor under [facility] as primary on 11/07/2024. 1. Breakthrough [...] Value Units Date/Time Resp Pathogens Panel/SARS CoV-2 [[id number]] (Abnormal) Collected: 11/11/24 0840 Specimen: Nasopharynx Updated: [...] 2 Not Detected Resp Pathogens Panel/SARS CoV-2 [[id number]] Collected: 11/05/24 0156 Specimen: Nasopharynx Updated: 11/05/24 [...] 2 Not Detected Mrsa Pcr nasal swab [[id number]] Collected: 11/05/24 0156 Specimen: Nasal Updated: 11/05/24 0340 Mrsa PCR Negative Urine culture [[id number]] Collected: 11/04/24 2257 Specimen: Urine, Clean Catch Midstream Updated: 11/06/24 1422 Culture 10,000 to 50,000 ORGANISMS/mL NORMAL URO GENITAL RAYMOND SARS/FLU A+B/RSV by NAAT/Molecular (M4RT Collection Tube) [[id number]] Collected: 11/04/24 191 Specimen: Nasopharynx Updated: 11/04/242005 FLU A PCR Negative FLU B PCR Negative RSV by PCR Negative SARS CoV 2 BY PCR Not Detected Blood culture [[id number]] Collected: 11/04/24 1812 Specimen: Blood Updated: 11/09/24 2238 Culture NO GROWTH 5 DAYS Blood culture [[id number]] Collected: 11/04/24 1715 Specimen: Blood Updated: 11/09/24 [...] This note was completed using a voice paper ruler system. Every effort was made to ensure accuracy. However, inadvertent computerized paper ruler errors may be present. * Carline Willard RN - 11/10/2024 8:10 PM EST Images from the original note were not included. FOLLOW-UP: Post-Intensive Care Rounding Note Patient: Yolanda Villanueva : 2000 Age: 24 y.o. Length of Stay: 5 days Admission Diagnosis: Seizure ([facility]) [R56.9] Electrolyte abnormality [E87.8] Reviewing patient due to her recent transfer out from Intensive Care. Recorded vital signs are stable and the patient is not noted to be in any apparent distress. Telemetry and monitoring noted. Staff may call with any issues or concerns regarding her clinical presentation or stability. Thank you, Carline Willard RN Rapid Response: [facility] * Devon Liu RN - 11/10/2024 12:31 PM EST Images from the original note were not included. FOLLOW-UP: Post-Intensive Care Rounding Note Patient: Yolanda Villanueva : 2000 Age: 24 y.o. Length of Stay: 5 days Admission Diagnosis: Seizure ([facility]) [R56.9] Reviewing patient due to her recent transfer out from Intensive Care. Recorded vital signs are stable and the patient is not noted to be in any apparent distress. Telemetry and monitoring noted. Staff may call with any issues or concerns regarding her clinical presentation or stability. Thank you, Devon Liu RN Rapid Response: [facility] * Nestor Ramsey MD - 11/10/2024 10:14 [...] 150 mL/hr, Last Rate: 150 mL/hr (11/09/24 2149) Laboratory Studies Results from last 7 days [...] FERRITIN 214 11/08/2024 Please contact me at [phone] (Office) or [phone] (Answering service) with any questions. Please feel free to contact me through [employer] chat during the daytime hours, if no response after 5 minutes then call the answering service. Nestor Ramsey MD [facility] This note was created with the assistance of a speech-recognition program. Although the intention is to generate a document that actually reflects the content of the visit, no guarantees can be provided that every mistake has been identified and corrected by editing. * Georgette Morris, AUTO TRAVEL COUNSELOR-BEEF GRINDER - 11/10/2024 10:12 AM EST Images from [...] enterovirus or drug rash from [facility] Neurology following Rhabdomyolysis RAKESH Nephrology [...] Value Units Date/Time Resp Pathogens Panel/SARS CoV-2 [[id number]] Collected: 11/05/24 015 Specimen: Nasopharynx Updated: 11/05/24 [...] 2 Not Detected Mrsa Pcr nasal swab [[id number]] Collected: 11/05/24 0156 Specimen: Nasal Updated: 11/05/24 0340 Mrsa PCR Negative Urine culture [[id number]] Collected: 11/04/24 2257 Specimen: Urine, Clean Catch Midstream Updated: 11/06/24 1422 Culture 10,000 to 50,000 ORGANISMS/mL NORMAL URO GENITAL RAYMOND SARS/FLU A+B/RSV by NAAT/Molecular (M4RT Collection Tube) [[id number]] Collected: 11/04/241912 Specimen: Nasopharynx Updated: 11/04/242005 FLU A PCR Negative FLU B PCR Negative RSV by PCR Negative SARS CoV 2 BY PCR Not Detected Blood culture [[id number]] Collected: 11/04/24 181 Specimen: Blood Updated: 11/09/242237 Culture NO GROWTH 5 DAYS Blood culture [[id number]] Collected: 11/04/24 1715 Specimen: Blood Updated: 11/09/24 [...] From 7AM-7PM: Our team prefers to use [employer] for communication. From 7PM-7AM: Please call for our answering service. VIJAYA Lazar 11/08/24 1131 VIJAYA Lazar 11/09/24 1651 VIJAYA Lazar 11/10/24 1336 * Oliverio Dennis MD - 11/10/2024 8:24 AM EST Principal Problem: Seizure ([facility]) Chief Complaint: Diarrhea is better, 2 bowel movements since yesterday, complains of pain at the site where she bit her tongue ASSESSMENT AND PLAN: Patient is a 24-year-old female with known Hx/o Seizure disorder, Depression/Anxiety, Eczema, Gastritis, former smoker initially admitted to ICU presented on 11/04/2024 with recurrent seizures, rash.Once stabilized was transferred to floor under [facility] as primary on 11/07/2024. 1. Breakthrough [...] Value Units Date/Time Resp Pathogens Panel/SARS CoV-2 [[id number]] Collected: 11/05/24 015 Specimen: Nasopharynx Updated: 11/05/24314 [...] 2 Not Detected Mrsa Pcr nasal swab [[id number]] Collected: 11/05/24 0156 Specimen: Nasal Updated: 11/05/24 0340 Mrsa PCR Negative Urine culture [[id number]] Collected: 11/04/24 225 Specimen: Urine, Clean Catch Midstream Updated: 11/06/24 1422 Culture 10,000 to 50,000 ORGANISMS/mL NORMAL URO GENITAL RAYMOND SARS/FLU A+B/RSV by NAAT/Molecular (M4RT Collection Tube) [[id number]] Collected: 11/04/24 1913 Specimen: Nasopharynx Updated: 11/04/242005 FLU A PCR Negative FLU B PCR Negative RSV by PCR Negative SARS CoV 2 BY PCR Not Detected Blood culture [[id number]] Collected: 11/04/24 181 Specimen: Blood Updated: 11/09/24 223 Culture NO GROWTH 5 DAYS Blood culture [[id number]] Collected: 11/04/24 1715 Specimen: Blood Updated: 11/09/24 [...] This note was completed using a voice paper ruler system. Every effort was made to ensure accuracy. However, inadvertent computerized paper ruler errors may be present. * Christian Griffiths RN - 11/09/2024 7:28 PM EST Images from the original note were not included. Post-Intensive Care Rounding Note Patient: Yolanda Villanueva : 2000 Age: 24 y.o. Length of Stay: 4 days Admission Diagnosis: Seizure ([facility]) [R56.9] Rapid response rounding on patient after transfer out of ICU. No acute changes noted. Staff encouraged to call with any issues, questions or concerns that may arise regarding the patient throughout the shift. Thank you, Prashant Griffiths RN Rapid Response: [facility] * Georgette Morris APRN-BEEF GRINDER - 11/09/2024 11:41 AM EST Images from [...] such as enterovirus or drug rash from [facility] Seizure Neurology following Rhabdomyolysis RAKESH Nephrology following [...] -- Trace* PROTEIN mg/dL 70* -- PROTEIN RKISTA mg/dL -- 100* KETONES (URINE) mg/dL Negative -- KETONES KRISTA mg/dL -- Negative UROBILINOGEN eu/dL <1.1 -- UROBILINOGEN KRISTA eu/dL -- 0.2 BLDHGB Large* -- POC HGB -- Large* RBC UA /hpf <1 -- WBC UA /hpf 1 -- No results found. Imaging Studies: I have personally reviewed this study. Cultures: Microbiology Results Procedure Component Value Units Date/Time Resp Pathogens Panel/SARS CoV-2 [[id number]] Collected: 11/05/24 0156 Specimen: Nasopharynx Updated: 11/05/24 [...] 2 Not Detected Mrsa Pcr nasal swab [[id number]] Collected: 11/05/24 0156 Specimen: Nasal Updated: 11/05/24 0340 Mrsa PCR Negative Urine culture [[id number]] Collected: 11/04/24 225 Specimen: Urine, Clean Catch Midstream Updated: 11/06/24 1422 Culture 10,000 to 50,000 ORGANISMS/mL NORMAL URO GENITAL RAYMOND SARS/FLU A+B/RSV by NAAT/Molecular (M4RT Collection Tube) [[id number]] Collected: 11/04/24 191 Specimen: Nasopharynx Updated: 11/04/242005 FLU A PCR Negative FLU B PCR Negative RSV by PCR Negative SARS CoV 2 BY PCR Not Detected Blood culture [[id number]] Collected: 11/04/24 181 Specimen: Blood Updated: 11/08/242235 Culture NO GROWTH 4 DAYS Blood culture [[id number]] Collected: 11/04/24 1715 Specimen: Blood Updated: 11/08/242237 [...] From 7AM-7PM: Our team prefers to use [employer] for communication. From 7PM-7AM: Please call for [...] rash.Once stabilized was transferred to floor under [facility] as primary on 11/07/2024. 1. Breakthrough [...] Value Units Date/Time Resp Pathogens Panel/SARS CoV-2 [[id number]] Collected: 11/05/24 0156 Specimen: Nasopharynx Updated: 11/05/24 [...] 2 Not Detected Mrsa Pcr nasal swab [[id number]] Collected: 11/05/24 0156 Specimen: Nasal Updated: 11/05/24 0340 Mrsa PCR Negative Urine culture [[id number]] Collected: 11/04/24 225 Specimen: Urine, Clean Catch Midstream Updated: 11/06/24 1422 Culture 10,000 to 50,000 ORGANISMS/mL NORMAL URO GENITAL RAYMOND SARS/FLU A+B/RSV by NAAT/Molecular (M4RT Collection Tube) [[id number]] Collected: 11/04/24 1913 Specimen: Nasopharynx Updated: 11/04/24 2006 FLU A PCR Negative FLU B PCR Negative RSV by PCR Negative SARS CoV 2 BY PCR Not Detected Blood culture [[id number]] Collected: 11/04/24 1812 Specimen: Blood Updated: 11/08/24 223 Culture NO GROWTH 4 DAYS Blood culture [[id number]] Collected: 11/04/24 1715 Specimen: Blood Updated: 11/08/242237 [...] This note was completed using a voice paper ruler system. Every effort was made to ensure accuracy. However, inadvertent computerized paper ruler errors may be present. * Marjorie Curiel [...] amlodipine 5 mg daily MARJORIE CURIEL MD,PhD. [facility] ANY QUESTIONS FEEL FREE TO CALL: 1. OFFICE [phone] 2. ANSWERING SERVICE: [phone] * Marjorie Curiel MD - 11/08/2024 10:50 [...] 150 mL/hr, Last Rate: 150 mL/hr (11/07/24 1936) Nutrition: Dietary Orders (From admission, onward) Start [...] Ringer's at 150 mL/hr MARJORIE CURIEL MD,PhD. [facility] ANY QUESTIONS FEEL FREE TO CALL: 1. OFFICE [phone] 2. ANSWERING SERVICE: [phone] * Georgette Morris, AUTO TRAVEL COUNSELOR-[facility] - 11/08/2024 8:30 AM EST Images from [...] such as enterovirus or drug rash from [facility] Seizure Neurology following Rhabdomyolysis RAKESH Nephrology following [...] -- Negative UROBILINOGEN eu/dL <1.1 -- UROBILINOGEN KRITSA eu/dL -- 0.2 BLDHGB Large* -- POC HGB -- Large* RBC UA /hpf <1 -- WBC UA /hpf 1 -- No results found. Imaging Studies: I have personally reviewed this study. Cultures: Microbiology Results Procedure Component Value Units Date/Time Resp Pathogens Panel/SARS CoV-2 [[id number]] Collected: 11/05/24 0156 Specimen: Nasopharynx Updated: 11/05/24 [...] 2 Not Detected Mrsa Pcr nasal swab [[id number]] Collected: 11/05/24 0156 Specimen: Nasal Updated: 11/05/24 0340 Mrsa PCR Negative Urine culture [[id number]] Collected: 11/04/24 225 Specimen: Urine, Clean Catch Midstream Updated: 11/06/24 1422 Culture 10,000 to 50,000 ORGANISMS/mL NORMAL URO GENITAL RAYMOND SARS/FLU A+B/RSV by NAAT/Molecular (M4RT Collection Tube) [[id number]] Collected: 11/04/24 191 Specimen: Nasopharynx Updated: 11/04/242005 FLU A PCR Negative FLU B PCR Negative RSV by PCR Negative SARS CoV 2 BY PCR Not Detected Blood culture [[id number]] Collected: 11/04/24 181 Specimen: Blood Updated: 11/07/242235 Culture NO GROWTH 3 DAYS Blood culture [[id number]] Collected: 11/04/24 1715 Specimen: Blood Updated: 11/07/242237 [...] From 7AM-7PM: Our team prefers to use [employer] for communication. From 7PM-7AM: Please call for [...] rash.Once stabilized was transferred to floor under [facility] as primary on 11/07/2024. 1. Breakthrough [...] Value Units Date/Time Resp Pathogens Panel/SARS CoV-2 [[id number]] Collected: 11/05/24155 Specimen: Nasopharynx Updated: 11/05/24 0315 [...] 2 Not Detected Mrsa Pcr nasal swab [[id number]] Collected: 11/05/24 015 Specimen: Nasal Updated: 11/05/24 0340 Mrsa PCR Negative Urine culture [[id number]] Collected: 11/04/242256 Specimen: Urine, Clean Catch Midstream Updated: 11/06/24 1422 Culture 10,000 to 50,000 ORGANISMS/mL NORMAL URO GENITAL RAYMOND SARS/FLU A+B/RSV by NAAT/Molecular (M4RT Collection Tube) [[id number]] Collected: 11/04/24 191 Specimen: Nasopharynx Updated: 11/04/242005 FLU A PCR Negative FLU B PCR Negative RSV by PCR Negative SARS CoV 2 BY PCR Not Detected Blood culture [[id number]] Collected: 11/04/24 181 Specimen: Blood Updated: 11/07/24 223 Culture NO GROWTH 3 DAYS Blood culture [[id number]] Collected: 11/04/24 1715 Specimen: Blood Updated: 11/07/242237 [...] This note was completed using a voice paper ruler system. Every effort was made to ensure accuracy. However, inadvertent computerized paper ruler errors may be present. * Avni Ríos, DO - 11/07/2024 10:43 PM EST Images from the original note were not included. Division of Infectious Diseases - Progress Note Academic Team Please contact us via Ektron chat. After hours, call [phone] Patient name: Yolanda Ma Back Patient Today's [...] stool present in her colon in the [place] ED and the stool was not sent [...] or primary neurological disorders. Ray Mina MD Nursing Care Attendant Neurology/Neurophysiology [facility] I have personally reviewed the above studies . Cultures: Microbiology Results Procedure Component Value Units Date/Time Resp Pathogens Panel/SARS CoV-2 [[id number]] Collected: 11/05/24 015 Specimen: Nasopharynx Updated: 11/05/24 [...] 2 Not Detected Mrsa Pcr nasal swab [[id number]] Collected: 11/05/24 0156 Specimen: Nasal Updated: 11/05/24 0340 Mrsa PCR Negative Urine culture [[id number]] Collected: 11/04/24 2257 Specimen: Urine, Clean Catch Midstream Updated: 11/06/24 1422 Culture 10,000 to 50,000 ORGANISMS/mL NORMAL URO GENITAL RAYMOND SARS/FLU A+B/RSV by NAAT/Molecular (M4RT Collection Tube) [[id number]] Collected: 11/04/24 191 Specimen: Nasopharynx Updated: 11/04/242005 FLU A PCR Negative FLU B PCR Negative RSV by PCR Negative SARS CoV 2 BY PCR Not Detected Blood culture [[id number]] Collected: 11/04/24 181 Specimen: Blood Updated: 11/07/242235 Culture NO GROWTH 3 DAYS Blood culture [[id number]] Collected: 11/04/24 1715 Specimen: Blood Updated: 11/07/242237 [...] progress note was completed using a voice paper ruler system. Every effort was made to ensure accuracy; however, inadvertent computerized paper ruler errors may be present. Thank you for allowing us to participate in the care of this patient. Avni Ríos DO [place] [facility] Pager: From 7AM-7PM: From 7AM-7PM: Please use [employer] for communication. From 7PM-7AM: Please call for our answering service. * Brigida Rae MD - 11/07/2024 2:57 PM EST Images from the original note were not included. [facility] Neurology General Neurology Primary Progress Note Primary Neurology service: [phone] Chief Complaint: Interval History: Yolanda Villanueva is [...] off Brigida Rae MD PGY-4, Neurology Resident [facility] Staffed with: (Dr. Skelton) This patient is being followed by the Neurology Resident service. Contact attending directly during these hours: Thursday to 7:30-8:30 A.M. to Thursday 12-1:00 p.m. Primary Neurology service: [phone] Consult neurology service: [phone] Resident Stroke Service: [phone] If the patient belongs to the Stroke [...] per excellent resident note. Robin Skelton MD Nursing Care Attendant of Neurology [facility] 11/07/24 * VIJAYA Kearns - 11/07/2024 1:26 PM EST Critical Care Interim Progress Note: Yolanda Summer Back 1:27 PM Patient has orders placed to be transferred out of the ICU. Sign-out has been called to Dr. Gutierrez with [facility]. Today is the 2nd call to [facility] for transfer. [facility] to assume care of patient on 11/08/2024 if patient remains in ICU with orders to transfer. Critical Care will sign off at time of transfer out ofICU. Thank you. VIJAYA Kearns Department of Anesthesiology and Critical Care Medicine 11/07/24 1:28 PM Please contact me via Patient-Touch VIJAYA Kearns 11/07/24 8172 * Kilo Yang MD - 11/07/2024 11:29 [...] Dr. Yang and bedside RN. Christopher Ewry, AUTO TRAVEL COUNSELOR-BEEF GRINDER Subjective A 12 point review of systems was obtained was grossly negative. The patient is tearful and wants togo home. At the time of the exam, she denied complaints of chest pain, shortness for breath, nausea, vomiting, abdominal pain, or diarrhea. She does have a nonproductive cough. Hospital Problem: Principal Problem: Seizure ([facility]) OBJECTIVE Vital Signs Temp: [36.6 C (97.9 [...] Value Units Date/Time Resp Pathogens Panel/SARS CoV-2 [[id number]] Collected: 11/05/24155 Specimen: Nasopharynx Updated: 11/05/24314 Specimen [...] 2 Not Detected Mrsa Pcr nasal swab [[id number]] Collected: 11/05/24 0156 Specimen: Nasal Updated: 11/05/24 0340 Mrsa PCR Negative Urine culture [[id number]] Collected: 11/04/242256 Specimen: Urine, Clean Catch Midstream Updated: 11/06/24 142 Culture 10,000 to 50,000 ORGANISMS/mL NORMAL URO GENITAL RAYMOND SARS/FLU A+B/RSV by NAAT/Molecular (M4RT Collection Tube) [[id number]] Collected: 11/04/241912 Specimen: Nasopharynx Updated: 11/04/242005 FLU A PCR Negative FLU B PCR Negative RSV by PCR Negative SARS CoV 2 BY PCR Not Detected Blood culture [[id number]] Collected: 11/04/24 181 Specimen: Blood Updated: 11/06/242235 Culture NO GROWTH 2 DAYS Blood culture [[id number]] Collected: 11/04/24 171 Specimen: Blood Updated: 11/06/242237 [...] Value Units Date/Time Resp Pathogens Panel/SARS CoV-2 [[id number]] Collected: 11/05/24 015 Specimen: Nasopharynx Updated: 11/05/24 [...] 2 Not Detected Mrsa Pcr nasal swab [[id number]] Collected: 11/05/24 0156 Specimen: Nasal Updated: 11/05/24 0340 Mrsa PCR Negative Urine culture [[id number]] Collected: 11/04/24 225 Specimen: Urine, Clean Catch Midstream Updated: 11/06/24 1422 Culture 10,000 to 50,000 ORGANISMS/mL NORMAL URO GENITAL RAYMOND SARS/FLU A+B/RSV by NAAT/Molecular (M4RT Collection Tube) [[id number]] Collected: 11/04/24 191 Specimen: Nasopharynx Updated: 11/04/242005 FLU A PCR Negative FLU B PCR Negative RSV by PCR Negative SARS CoV 2 BY PCR Not Detected Blood culture [[id number]] Collected: 11/04/24 181 Specimen: Blood Updated: 11/06/242235 Culture NO GROWTH 2 DAYS Blood culture [[id number]] Collected: 11/04/24 171 Specimen: Blood Updated: 11/06/242237 [...] 75 mg, oral, Daily with breakfast Renanadolfo BlancLINDSAY-BEEF GRINDER 11/07/24 1231 Attestation signed by 1:04 PM [...] TIBC , FERRITIN Please contact me at [phone] (Office) or [phone] (Answering service) with any questions. Please feel free to contact me through DataPad chat during the daytime hours, if no response after 5 minutes then call the answering service. Nestor Ramsey MD [facility] This note was created with the assistance [...] Note Academic Team Please contact us via Ektron chat. After hours, call [phone] Patient name: Yolanda Ma Back Patient Today's [...] stool present in her colon in the [place] ED and the stool was not sent [...] or primary neurological disorders. Ray Mina MD Nursing Care Attendant Neurology/Neurophysiology [place] [facility] X-ray chest 1 view Result Date: [...] Value Units Date/Time Resp Pathogens Panel/SARS CoV-2 [[id number]] Collected: 11/05/24 0156 Specimen: Nasopharynx Updated: 11/05/24 [...] 2 Not Detected Mrsa Pcr nasal swab [[id number]] Collected: 11/05/24 0156 Specimen: Nasal Updated: 11/05/24 0340 Mrsa PCR Negative Urine culture [[id number]] Collected: 11/04/24 2257 Specimen: Urine, Clean Catch Midstream Updated: 11/06/24 0816 Culture <10,000 ORGANISMS/ML NORMAL URO GENITAL RAYMOND SARS/FLU A+B/RSV by NAAT/Molecular (M4RT Collection Tube) [[id number]] Collected: 11/04/24 1913 Specimen: Nasopharynx Updated: 11/04/242005 FLU A PCR Negative FLU B PCR Negative RSV by PCR Negative SARS CoV 2 BY PCR Not Detected Blood culture [[id number]] Collected: 11/04/24 1812 Specimen: Blood Updated: 11/05/24 2237 Culture NO GROWTH 1 DAY Blood culture [[id number]] Collected: 11/04/24 1715 Specimen: Blood Updated: 11/05/24 [...] progress note was completed using a voice paper ruler system. Every effort was made to ensure accuracy; however, inadvertent computerized paper ruler errors may be present. Thank you for allowing us to participate in the care of this patient. - DEANGELO MERRILL MD 11/06/24 11:56 AM [facility] Infectious Diseases Please contact us via Ektron chat * Marie Singh, - 11/06/2024 8:02 AM EST [facility] Progress Note Patient - Yolanda Summer Back Age - 24 y.o. - 2000 ASSESSMENT Severe sepsis with multiorgan dysfunction noted. Source not entirely clear at this time. Note concern for potential AGRICULTURAL ECONOMICS PROFESSOR infection/meningitis. Altered mental status, possibly toxic/metabolic in [...] dose precedex due to intermittent agitation Appreciate incident response consultant care and recs. GI studies pending. [...] of this process. ? CPK elevation from [facility]- case report data On Decadron for [...] Radiology None new Dr. Marie Singh DO. [facility] Pulmonary & Critical Care Office: [phone] * Moraima Lin PharmD - 11/05/2024 11:05 AM EST Pharmacokinetic Consult - Vancomycin Dosing Yolanda Villanueva is a 24 y.o. female for whom pharmacy has been consulted for vancomycin dosing for meningitis/AGRICULTURAL ECONOMICS PROFESSOR infection. Today is day 2 of vancomycin [...] Value Units Date/Time Resp Pathogens Panel/SARS CoV-2 [[id number]] Collected: 11/05/24 0156 Specimen: Nasopharynx Updated: 11/05/24 [...] 2 Not Detected Mrsa Pcr nasal swab [[id number]] Collected: 11/05/24 0156 Specimen: Nasal Updated: 11/05/24 0340 Mrsa PCR Negative Urine culture [[id number]] Resulted: 11/04/24 230 Specimen: Urine Updated: 11/05/24 0216 SARS/FLU A+B/RSV by NAAT/Molecular (M4RT Collection Tube) [[id number]] Collected: 11/04/24 191 Specimen: Nasopharynx Updated: 11/04/242005 FLU A PCR Negative FLU B PCR Negative RSV by PCR Negative SARS CoV 2 BY PCR Not Detected Blood culture [[id number]] Collected: 11/04/24 1812 Specimen: Blood Updated: 11/05/24 1036 Culture NO GROWTH <24 HRS Blood culture [[id number]] Collected: 11/04/24 1715 Specimen: Blood Updated: 11/05/24 [...] Units 11/05/24 0254 VANCOMYCIN ug/mL 28.4 Indication: meningitis/AGRICULTURAL ECONOMICS PROFESSOR infection Goal Vancomycin Range: Trough 15-20 mcg/mL [...] consulting. Fiordaliza Lin PharmD * Kati Ariza [facility] - 11/05/2024 2:19 AM EST Pharmacokinetic Consult - Vancomycin Dosing Yolanda Villanueva is a 24 y.o. female for whom pharmacy has been consulted for vancomycin dosing for meningitis/AGRICULTURAL ECONOMICS PROFESSOR infection. Today is day 1 of vancomycin [...] Procedure Component Value Units Date/Time Urine culture [[id number]] Resulted: 11/04/24 2305 Specimen: Urine Updated: 11/05/24215 SARS/FLU A+B/RSV by NAAT/Molecular (M4RT Collection Tube) [[id number]] Collected: 11/04/241912 Specimen: Nasopharynx Updated: 11/04/242005 FLU A PCR Negative FLU B PCR Negative RSV by PCR Negative SARS CoV 2 BY PCR Not Detected Blood culture [[id number]] Collected: 11/04/241758 Specimen: Blood, Peripheral Draw Updated: 11/04/241828 Blood culture [[id number]] Collected: 11/04/241758 Specimen: Blood, Peripheral Draw Updated: [...] 11/05/24 0213 Recent Vancomycin Serum Concentrations: Indication: meningitis/AGRICULTURAL ECONOMICS PROFESSOR infection Goal Vancomycin Range: Trough 15-20 mcg/mL [...] Ariza RPH - 11/05/2024 1:32 AM EST [facility] Department of Pharmacy Pharmacy-Physician Communication Due to a drug shortage, metronidazole the dose interval was adjusted to q12h per temporary [facility] approval. If you need additional information, please contact a pharmacist at [phone] . Thank you, documented in this encounterOhio[facility] Consult note* Marjorie Curiel MD - 11/06/2024 [...] in bed. She was transferred to the [facility] for ongoing care. Initial laboratories on November 04 sodium 130 potassium 2.8 chloride 99 total CO2 19 BUN 27 creatinine 1.8 calcium 8.2 total protein 8.2 albumin 4.5 AST 356 ALT 122 anion gap was 38 magnesium 2.8. CK total was 26,584. The CK has increased to 32,131. Myoglobin has decreased from 0378-0339. The patient had 6.6 L of urine [...] 04/10/2023 Performed by Joey Stacy MD at [facility] ESOPHAGOGASTRODUODENOSCOPY N/A 04/10/2023 Performed by Joey Stacy MD at [facility] * No surgery found * Allergies: [...] hyperkalemic, acidotic or oliguric. MARJORIE CURIEL MD,PhD. [facility] NEPH[facility]OLOGY [facility] ANY QUESTIONS FEEL FREE TO CALL: 1. OFFICE [phone] 2. ANSWERING SERVICE: [phone] * Deangelo Merrill MD - 11/05/2024 7:29 PM ESTAssociated Order(s): IP CONSULT TO INFECTIOUS DISEASES Images from the original note were not included. Infectious Diseases Academic Team - Initial Consult Note - Please contact us via Ektron chat. After hours, call [phone] Patient name: Yolanda Ma Back Patient Today's [...] of obesity with a BMI of 34 MD depression, gastritis, seizure disorder - she startedhaving seizures about a year ago. No clear etiology. Recently she had some changes on her antiepileptics and she developed a rash after Keppra was added. She presented to [facility] in [place] on November 04 yesterday with seizures. She [...] Eczema 2009 GERD (gastroesophageal reflux disease) Seizures ([facility]) Visual impairment 2004 Past Surgical History: Past Surgical History: Procedure Laterality Date COLONOSCOPY N/A 04/10/2023 Performed by Joey Stacy MD at [facility] ESOPHAGOGASTRODUODENOSCOPY N/A 04/10/2023 Performed by Joey Stacy MD at [facility] Medications: ARIPiprazole, 2 mg, oral, Daily [...] or primary neurological disorders. Ray Mina MD Nursing Care Attendant Neurology/Neurophysiology [place] [facility] X-ray chest 1 view Result Date: [...] Value Units Date/Time Resp Pathogens Panel/SARS CoV-2 [[id number]] Collected: 11/05/24 015 Specimen: Nasopharynx Updated: 02/01/25 [...] 2 Not Detected Mrsa Pcr nasal swab [[id number]] Collected: 11/05/24 0156 Specimen: Nasal Updated: 11/05/24 0340 Mrsa PCR Negative Urine culture [[id number]] Resulted: 11/04/24 230 Specimen: Urine Updated: 11/05/24 0216 SARS/FLU A+B/RSV by NAAT/Molecular (M4RT Collection Tube) [[id number]] Collected: 11/04/24 191 Specimen: Nasopharynx Updated: 11/04/24 2006 FLU A PCR Negative FLU B PCR Negative RSV by PCR Negative SARS CoV 2 BY PCR Not Detected Blood culture [[id number]] Collected: 11/04/24 1812 Specimen: Blood Updated: 11/05/24 1036 Culture NO GROWTH <24 HRS Blood culture [[id number]] Collected: 11/04/24 1715 Specimen: Blood Updated: 11/05/24 1038 Culture NO GROWTH <24 HRS Thank you for allowing us to participate in the care of this patient. - DEANGELO MERRILL MD 11/05/24 7:29 PM [facility] Infectious Diseases Please contact us via Ektron chat * Nathalie Mooney MD - 11/05/2024 2:48 AM ESTAssociated Order(s): IP CONSULT TO NEUROLOGY Images from the original note were not included. [facility] Neurology General Neurology Consultation Note Consult Neurology Service: [phone] Primary Team: critical care Chief Complaint and [...] as colitis/enteritis. Patient was then transferred to [facility] for further management. On initial examination, [...] disease) 02/06/2023 Visual impairment 02/06/2023 Seizure disorder ([facility] 01/11/2024 Seizure-like activity ([facility]) 09/12/2024 Focal epilepsy ([facility]) 09/20/2024 Resolved Ambulatory Problems Diagnosis Date Noted No Resolved Ambulatory Problems Past Medical History: Diagnosis Date Seizures ([facility]) Family History: Family History Problem Relation Age [...] IVPB, 3,000 mg, intravenous, PRN, Richard Prielipp, AUTO TRAVEL COUNSELOR-BEEF GRINDER cefEPime (MAXIPIME) IVPB 2000 mg/50 mL in dextrose 5% duplex (40 mg/mL premix), 2,000 mg, intravenous, Q12H, Richard Prielipp, AUTO TRAVEL COUNSELOR-BEEF GRINDER dexAMETHasone sodium phos (PF) (DECADRON) injection 10 mg, 10 mg, intravenous, Q6H, Richard Prielipp, AUTO TRAVEL COUNSELOR-BEEF GRINDER, 10 mg at 11/05/24 0148 dextrose (GLUTOSE) 40 % gel 15 g, 15 g, oral, PRN, Richard Prielipp, AUTO TRAVEL COUNSELOR-BEEF GRINDER dextrose 5 % (D5W) infusion, 100 mL/hr, intravenous, Continuous PRN, Richard Prielipp, AUTO TRAVEL COUNSELOR-BEEF GRINDER dextrose 50 % in water (D50W) 50% solution 25 mL, 25 mL, intravenous, PRN, Richard Prielipp, AUTO TRAVEL COUNSELOR-BEEF GRINDER glucagon HCL injection 1 mg, 1 mg, intramuscular, PRN, Richard Prielipp, AUTO TRAVEL COUNSELOR-BEEF GRINDER lactated ringers infusion, 125 mL/hr, intravenous, Continuous, Richard Prielipp, AUTO TRAVEL COUNSELOR-BEEF GRINDER, Last Rate: 100 mL/hr at 11/05/24 0141, 100 mL/hr at 11/05/24 0141 levETIRAcetam (KEPPRA) IVPB 1000 mg/100 mL in iso-osmotic sodium chloride (10 mg/mL premix), 1,000 mg, intravenous, Q12H, Richard Prielipp, AUTO TRAVEL COUNSELOR-BEEF GRINDER magnesium sulfate IVPB 2000 mg/50 mL in iso-osmotic water (40 mg/mL premix), 2,000 mg, intravenous,PRN OR magnesium sulfate IVPB 4000 mg/100 mL in iso- osmotic water (40 mg/mL premix), 4,000 mg, intravenous, PRN, Richard Prielipp, AUTO TRAVEL COUNSELOR-BEEF GRINDER [START ON 11/06/2024] metroNIDAZOLE (FLAGYL) IVPB 500 mg/100 mL in iso-osmotic sodium chloride (5 mg/mL premix), 500 mg, intravenous, Q12H, Richard Prielipp, AUTO TRAVEL COUNSELOR-BEEF GRINDER potassium chloride (K-TAB,KLOR-CON) CR tablet 20-50 mEq, 20-50 mEq, oral, PRN OR potassium chloride (KAYCIEL) 20 mEq/15 mL solution 20-50 mEq, 20-50 mEq, oral, PRN, Richard Prielipp, AUTO TRAVEL COUNSELOR-BEEF GRINDER potassium chloride IVPB 10 mEq/50 mL in water (0.2 mEq/mL premix), 10 mEq, intravenous, PRN OR potassium chloride IVPB 10 mEq/100 mL in water (0.1 mEq/mL premix), 10 mEq, intravenous, PRN, Richard Prielipp, AUTO TRAVEL COUNSELOR-BEEF GRINDER sodium phosphate 20 mmol in sodium chloride 0.9 % 250 mL IVPB, 20 mmol, intravenous, PRN OR sodium phosphate 20 mmol in sodium chloride 0.9 % 100 mL IVPB, 20 mmol, intravenous, PRN OR sod phos di, mono-K phos mono (K-PHOS NEUTRAL) 250 mg tablet 2 tablet, 2 tablet, oral, PRN, Richard Prielipp, AUTO TRAVEL COUNSELOR-BEEF GRINDER sodium chloride 0.9 % infusion, 10 mL/hr, intravenous, Continuous PRN, Richard Prielipp, AUTO TRAVEL COUNSELOR-BEEF GRINDER sodium chloride 0.9 % infusion, 10 mL/hr, intravenous, Continuous PRN, Richard Prielipp, AUTO TRAVEL COUNSELOR-BEEF GRINDER sodium chloride 0.9 % infusion, 10 mL/hr, intravenous, Continuous PRN, Richard Prielipp, AUTO TRAVEL COUNSELOR-BEEF GRINDER vancomycin (VANCOCIN) IVPB Dosed by Levels, , intravenous, Dosed by Levels, Richard Prielipp, AUTO TRAVEL COUNSELOR-BEEF GRINDER Allergies: No Known Allergies Complete Review of [...] Signed by Nathalie Mooney MD Neurology Resident, [facility] Please contact via secure chat Staffed with: Dr. Skelton This patient is being followed by the Neurology Resident service. Contact attending directly during these hours: Thursday to 7:30-8:30 A.M. to Thursday 12-1:00 p.m. Primary Neurology service: [phone] Consult neurology service: [phone] Resident Stroke Service: [phone] If the patient belongs to the Stroke [...] per excellent resident note. Robin Skelton MD Nursing Care Attendant of Neurology [facility] 11/05/24 documented in this encounterOhio[facility]25 History and physical note* Richard Ernandez APRN-BEEF GRINDER - 11/05/2024 1:38 AM EST CRITICAL CARE [...] [facility]adron. [facility]. Keppra was resumed after discussion with the Neurology team. She received 2 L normal saline bolus. She has now been transferred to [facility] for ongoing management. She is currently [...] Eczema 2009 GERD (gastroesophageal reflux disease) Seizures ([facility]) Visual impairment 2004 Past Surgical History: Procedure Laterality Date COLONOSCOPY N/A 04/10/2023 Performed by Joey Stacy MD at [facility] ESOPHAGOGASTRODUODENOSCOPY N/A 04/10/2023 Performed by Joey Stacy MD at [facility] Review of Systems - unable to [...] Procedure Component Value Units Date/Time Urine culture [[id number]] Resulted: 11/04/242304 Specimen: Urine Updated: 11/04/242305 SARS/FLU A+B/RSV by NAAT/Molecular (M4RT Collection Tube) [[id number]] Collected: 11/04/241912 Specimen: Nasopharynx Updated: 11/04/242005 FLU A PCR Negative FLU B PCR Negative RSV by PCR Negative SARS CoV 2 BY PCR Not Detected Blood culture [[id number]] Collected: 11/04/241758 Specimen: Blood, Peripheral Draw Updated: 11/04/241828 Blood culture [[id number]] Collected: 11/04/241758 Specimen: Blood, Peripheral Draw Updated: 11/04/241828 ASSESSMENT: Severe sepsis with multiorgan dysfunction noted. Significant leukocytosis and elevated procalcitonin noted. Source not entirely clear at this time. Note concern for potential AGRICULTURAL ECONOMICS PROFESSOR infection/meningitis. Chest x-ray without acute process. UA does not appear grossly infected. CT abdomen and pelvis with potential colitis. Altered mental status, possibly toxic/metabolic in etiology vs seizure related / post ictal. Lumbarpuncture attempted unsuccessfully at the outside hospital. Will need further workup for potential AGRICULTURAL ECONOMICS PROFESSOR infection. Seizure disorder with breakthrough seizures and [...] titration of care by a Critical Care Shift Superintendent. Failure to do so may result in further organ system failure, imminent deterioration, or . VIJAYA Hung 11/05/24 0209 Cosigned by Esau Vincent MD at 11/05/2024 2:33 AM EST documented in this encounterProctor HospitalApricot Trees [id number] Miscellaneous Notes* Telephone Encounter - Cherry Llamas - 11/02/2024 9:32 AM EST Medication Name:levETIRAcetam (KEPPRA) 750 mg tablet Frequency/Dose: 750mg twice daily Side Effects: Patient stated that they have a skin rash on arms and torso and face When did the side effects begin:1 1/2 weeks ago Last dose: 11/02/24 AM dose Received call from: Patient Callback number:[phone] * Telephone Encounter - Megha Bragg MD [...] increased the dose to twice a day. Aviation Electronic Warfare Operator informed patient would send message to Dr. [...] 11/02/2024 9:32 AM EST Zabrina STUBBS RN [facility] [phone] (ER direct line) has requested a call back. Caller stated that patient is currently at ER and department has a few questions to ask Dr. Bragg. Provider'spager does not seem to be working. * Telephone Encounter - Soco Granados RN [...] to call office back. documented in this encounterProctor HospitalBucky Box01-29-2025 Telephone encounter Note* Telephone Encounter - Cherry Llamas - 11/02/2024 9:32 AM EST Medication Name:levETIRAcetam (KEPPRA) 750 mg tablet Frequency/Dose: 750mg twice daily Side Effects: Patient stated that they have a skin rash on arms and torso and face When did the side effects begin:1 1/2 weeks ago Last dose: 11/02/24 AM dose Received call from: Patient Callback number:[phone] [employer]01-29-2025 Telephone encounter Note* Telephone Encounter - Megha [...] me know about further conc erns. Thanks [employer] Work Phone: [phone]) 891-105601-29-2025 Telephone encounter Note* Telephone Encounter - Soco Granados RN - 11/02/2024 9:32 AM EST Called and spoke to patient and let her know recommendations/ information from Dr. Bragg about thelamictal and her rash. She stated that she had been taking the Lamictal for a while now and just recently increased the dose to twice a day. Aviation Electronic Warfare Operator informed patient would send message to Dr. Bragg about the Lamictal and see what he says. Did also inform her that he was out of the office but was answering things. She voiced understanding. Also told her about going to the ED to have the rash be evaluated and make sure it is not Israel-Gab syndrome. She voiced understanding. [facility] [id number] Telephone encounter Note* Telephone Encounter - Megha Bragg MD - 11/02/2024 9:32 AM EST Yes that is correct, I want her to stop taking the Lamictal and just continue the Keppra for seizure prophylaxis. The risk of dermatological complications such as Hills-Gab syndrom is a dose dependent phenomenon associated with lamotrigine/Lamictal usage. Typically the rash develops as the dose of Lamictal is increased. [facility] [employer]ure [id number] Telephone encounter Note* Telephone Encounter - Cherry Llamas - 11/02/2024 9:32 AM EST Zabrina STUBBS RN [facility] [phone] (ER direct line) has requested a call back. Caller stated that patient is currently at ER and department has a few questions to ask Dr. Bragg. Provider'spager does not seem to be working. [facility] [employer] [id number] Telephone encounter Note* Telephone Encounter - Soco [...] message for patient to call office back. [facility] Online-OR10-08-2024 History of Present illness Narrative* Megha Bragg MD - 07/12/2024 4:00 PM EDT Images from the original note were not included. [address] [place] [address] Patient: Yolanda Villanueva Date of : 2000 [...] to display PTSD: No data to display Hamill: No data to display JEVON-10: No data [...] Eczema 2009 GERD (gastroesophageal reflux disease) Seizures ([facility]) Visual impairment 2004 Family History Problem Relation Age of Onset Kidney disease Father Miscarriages / Stillbirths Sister Lung cancer Maternal Grandmother Throat cancer Paternal great-grandmother Past Surgical History: Procedure Laterality Date COLONOSCOPY N/A 04/10/2023 Performed by Joey Stacy MD at [facility] ESOPHAGOGASTRODUODENOSCOPY N/A 04/10/2023 Performed by Joey Stacy MD at [facility] Current Outpatient Medications Medication Sig Dispense [...] touch is bilaterally symmetric and normal. Coordination: Dhcwel-vlwn-xbvvdy and nria-dfle-apyd tests are normal. 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 I have reviewed all pertinent clinical information, including history, physical exam, investigation results and plan. I spent 35 minutes caring for this patient, and more than 50% of that time was spent on counseling the patient/vp compliance/care team and coordinating care. Important Notice: This note was created with the assistance of a speech recognition program. While intending to generate a timely document that accurately reflects the content of the encounter, no guarantee can be provided that every grammatical or spelling mistake has been or will be identified or corrected. Thank you for your understanding. documented in this encounterOhio[facility]09-27-2024 History of Present illness Narrative* Kalin Mccann RN - 07/01/2024 6:46 AM EDT Pt currently in [facility] ED. Call requesting pt medical records received. Obtained signed copy of release of medical records form. Requested records faxed to [facility] ED. documented in this encounterOhioHealth Dublin [facility] Hospital07-19-2024 Discharge summary Author Donavon rehman [facility] April 22, 2024 7:05amNote Date/TimeJuly 2023 6:[address] [address] Discharge Summary Signed Patient: Yolanda Villanueva MR#: [id number] : 2000 Acct:[id number] Age/Sex: 24 / F Adm Date: 4 Loc: 1S Room: 6C0757-[address]: Obie Harley MD Copies to: [...] Reportedly, patient presented to the ER in [place] after he drove her there. Shehas been [...] her tried to drive her to the [place] ER. When she realized he was taking her to the hospital, she jumped out of the car and jumpedinto a nearby pond since her can't swim. Her jgejie-ar-yrb got a kayak and got her out [...] self or stop treatment, but to call [place], 911 or come to the nearest emergency [...] Instructions: Important Contact Information You can call [facility] at [phone] any timeday or night if you have emergent questions or question regarding discharge instructions. If at anytime you are feeling an increase inyour psychiatric symptoms, call your physician or behavioral healthcare provider. If any time you have thoughts of harming yourself or others contact one of the following: Call 8 (available 27/04) Crisis Text Line (available 27/04) text 4HOPE to [phone] [facility] Hope Line (available 8 a.m. Midnight) call [phone] ([phone]) Instructions: Know your Meds Prescriptions: New venlafaxine [...] 24hr 37.5 mg PO DAILY Follow Up: [facility] [Outside] Ottoniel Arias MD [Primary Care Provider] - Exam Physical Exam Vital Signs: Temp Pulse Resp BP Pulse Ox O2 Del Method 98.6 F 87 16 136/85 98 Room Air 04/21/24 19:30 04/21/24 19:30 04/21/24 19:30 04/21/24 19:30 04/21/24 19:30 04/21/24 19:30 Documented By: Donavon Montalvo MD 4 [id number] Signed By: <Electronically signed by Donavon Montalvo MD> 04/22/24 0705 [facility] Work Phone: 1(202) 202-339507-18-2024 Progress note Author Donavon rehman [facility] April 21, 2024 7:17amNote Date/TimeJuly 2023 7:[place] [address] Psychiatry Progress Note Signed Patient: Yolanda Villanueva MR#: [id number] : 2000 Acct:[id number] Age/Sex: 24 / F Adm Date: 4 Loc: Room: [address] [place] [address] Type : ADM IN Attending Dr: Obie [...] the unit milieu. She hasbeen working with high risk case manager on her aftercare she agreed [...] <Electronically signed by Donavon Montalvo MD> 04/21/2417 [facility] Work Phone: 1(975) 468-902307-17-2024 Progress note Author Donavon rehman [facility] April 20, 2024 8:25amNote Date/TimeJuly 2023 8:24[place], [place] [address] Psychiatry Progress Note Signed Patient: Yolanda Villanueva MR#: [id number] : 2000 Acct:[id number] Age/Sex: 24 / F Adm Date: 4 Loc: Room: [address] [place] [address] Type : ADM IN Attending Dr: Obie [...] signed by Donavon Montalvo MD> 04/20/24 0825 [facility] Work Phone: 1(612) 770-563707-16-2024 Progress note Author Donavon rehman [facility] April 19, 2024 12:03pmNote Date/TimeJuly 2023 10:24[place], [place] [address] Psychiatry Progress Note Signed Patient: Yolanda Villanueva MR#: [id number] : 2000 Acct:[id number] Age/Sex: 24 / F Adm Date: 4 Loc: Room: [address] [place] [address] Type : ADM IN Attending Dr: Obie [...] signed by Donavon Montalvo MD> 04/19/24 1203 [facility] Work Phone: 1(318) 805-456007-15-2024 History and physical note Author Donavon rehman [facility] April 18, 2024 11:38amNote Date/TimeJuly 2023 10:35[place] [id number] Psychiatry H&P Signed Patient: Yolanda Villanueva MR#: [id number] : 2000 Acct:[id number] Age/Sex: 24 / F Adm Date: 4 Loc: 1S Room: 9Q2674-6 Type: ADM IN Attending Dr: Obie Harley MD Copies to: MD Obie Oleary MD Josilyn M Clark, DO, RES Ottoniel Arias MD~ Date of Service: 04/18/2024 HPI History of Present Illness History of present illness: Ms. Villanueva is a 24 year old female who presents for inpatient treatment due to depression and suicidal ideation. Reportedly, patient presented to the ER in [place] after he drove her there. Shehas been [...] her tried to drive her to the [place] ER. When she realized he was taking her to the hospital, she jumped out of the car and jumpedinto a nearby pond since her can't swim. Her rzlwni-fe-vtw got a kayak and got her out [...] [facility] Insight: Fair Judgment: Fair [facility] Medical History (Updated 04/18/24 @ [...] signed by Donavon Montalvo MD> 04/18/24 [address] [facility] Work Phone: 1(751) 789-191504-26-2024 History of Present illness Narrative* Megha Bragg MD - 01/29/2024 1:30 PM EDT Images from the original note were not included. [address] [place] [address] Patient: Yolanda Villanueva Date of : [...] to display PTSD: No data to display Hamill: No data to display JEVON-10: No data [...] Eczema 2009 GERD (gastroesophageal reflux disease) Seizures ([facility]) Visual impairment 2004 Family History Problem Relation Age of Onset Kidney disease Father Miscarriages / Stillbirths Sister Lung cancer Maternal Grandmother Throat cancer Paternal great-grandmother Past Surgical History: Procedure Laterality Date COLONOSCOPY N/A 04/10/2023 Performed by Joey Stacy MD at [facility] ESOPHAGOGASTRODUODENOSCOPY N/A 04/10/2023 Performed by Joey Stacy MD at [facility] Current Outpatient Medications Medication Sig Dispense [...] touch is bilaterally symmetric and normal. Coordination: Nyvewy-jqzd-hzrfvl and hfrv-cbew-sgks tests are normal. No dysdiadochokinesia on rapid [...] all orders for this visit: Seizure disorder ([facility]) Witnessed seizure-like activity ([facility]) - Ambulatory referral to Neurology ([facility]) Anxiety [...] Follow-up: MD Megha Oates MD Vascular Neurologist [facility] Neurology # [phone]([facility]) I have personally participated in the care of this patient. I have reviewed all pertinent clinical information, including history, physical exam, investigation results and plan. I spent 45 minutes caring for this patient, and more than 50% of that time was spent on counseling the patient/vp compliance/care team and coordinating care. Important Notice: This note was created with the assistance of a speech recognition program. While intending to generate a timely document that accurately reflects the content of the encounter, no guarantee can be provided that every grammatical or spelling mistake has been or will be identified or corrected. Thank you for your understanding. documented in this encounterProctor HospitalApricot Trees [id number] Miscellaneous Notes* Telephone Encounter - Kathrin Howard - 12/28/2023 8:48 AM EDT Please ask the following questions to the new patient that you are schedulin. IS THIS DUE TO AN ACCIDENT? - No 2. IS THIS WORKER'S COMP? - No 3. WHAT INSURANCE? - [employer] [facility] 4. HAVE YOU EVER BEEN SEEN BY A NEUROLOGIST BEFORE? IF YES, WHO AND WHEN? IS THIS A SECOND OPINION? - No 5. PATIENT IS SCHEDULED ON/WITH: - 01/29/2024 at 1:30pm with Dr. Bragg in [place]. Patient's requested [place] and requestedMD. documented in this encounterOhioHealth Dublin [facility] Hospital03-25-2024 Telephone encounter Note* Telephone Encounter - Kathrin Howard - 12/28/2023 8:48 AM EDT Please ask the following questions to the new patient that you are schedulin. IS THIS DUE TO AN ACCIDENT? - No 2. IS THIS WORKER'S COMP? - No 3. WHAT INSURANCE? - [employer] 4. HAVE YOU EVER BEEN SEEN BY A NEUROLOGIST BEFORE? IF YES, WHO AND WHEN? IS THIS A SECOND OPINION? - No 5. PATIENT IS SCHEDULED ON/WITH: - 01/29/2024 at 1:30pm with Dr. Bragg in [place]. Patient's requested [place] and requestedMD. [facility]02-[facility] History of Present illness Narrative* Ottoniel Arias MD - 11/24/2023 7:45 AM EST Images from the original note were not included. [address] [place] [phone] Patient: Yolanda Villanueva Date of : 2000 [...] Visit via Real-time Synchronous Audiovisual Provider Location: [facility] [address] [place] [phone] Patient Location: Patient's home Video Visit Consent [...] that there are some limitations compared to zmyu-cj-rodr evaluations. The patient consented to the presence of additional virtual and/or in-person participants. We elected to proceed. OTTONIEL ARIAS MD Family Medicine Physician [facility] / [facility] 11/24/23 This note was completed with voice recognition software. The document was reviewed for errors however some may still be present. Please do not hesitate to contact/Epic msg the author to verify any questions/concerns. documented in this encounterLake County Memorial Hospital - WestBe Great [facility] Select Specialty [id number] History of Present illness Narrative* Ottoniel Arias MD - 10/08/2023 7:45 AM EST Images from the original note were not included. [address] [place] [phone] Patient: Yolanda Villanueva Date of : 2000 [...] Visit via Real-time Synchronous Audiovisual Provider Location: [facility] [address] [place] [phone] Patient Location: Patient's home Video Visit Consent [...] that there are some limitations compared to lumg-jj-yhfb evaluations. The patient consented to the presence of additional virtual and/or in-person participants. We elected to proceed. OTTONIEL ARIAS MD Family Medicine Physician [facility] 10/08/23 This note was completed with voice recognition software. The document was reviewed for errors however some may still be present. Please do not hesitate to contact/Epic [facility] [place] [place] the author to verify any questions/concerns. documented in this encounterDetwiler Memorial Hospital [id number] Evaluation note* Encounter Date Diagnosis Assessment Notes [...] declines urinalysis, declines test, denies suspicion of [employer] Other Evaluation note* Diagnosis Onset Date Resolution Status Anxiety acuteDepressionToledo Hospital Work Phone: Evaluation note* Diagnosis Seizure (CMS-HCC)- Primary Other convulsions Seizure (CMS-HCC) Other convulsions Non-traumatic rhabdomyolysis Acute renal failure, unspecified acute renal failure type (CMS-HCC) Transaminitis Nonspecific elevation of levels of transaminase or lactic acid dehydrogenase (LDH) Eczema, unspecified type Influenza A H1N1 infection documented in this encounter [facility]* Diagnosis Generalized anxiety disorder documented in this encounter [facility]* Diagnosis Anxiety Anxiety state, unspecified documented in this encounter [facility]* Diagnosis Seizure disorder (CMS-HCC)- Primary Unspecified epilepsy without mention of intractable epilepsy documented in this encounter [facility]* Diagnosis Anxiety Anxiety state, unspecified documented in this encounter [facility]* Diagnosis Anxiety- Primary Anxiety state, unspecified Depression, unspecified depression type documented in this encounter [facility] System[facility]* Diagnosis Seizure (CMS-HCC)- Primary Other convulsions Muscle cramp Cramp of limb documented in this encounter [facility] SystemEvaluation [facility]* Diagnosis Breakthrough seizure (CMS-HCC)- Primary Gastroesophageal reflux disease, unspecified whether esophagitis present Seizure disorder (CMS-HCC) Unspecified epilepsy without mention of intractable epilepsy Eczema, unspecified type Anxiety Anxiety state, unspecified Depression, unspecified depression type documented in this encounter [facility] SystemEvaluation [facility]* Diagnosis Seizure disorder (CMS-HCC)- Primary Unspecified epilepsy without mention of intractable epilepsy Witnessed seizure-like activity (CMS-HCC) Anxiety Anxiety state, unspecified Gastroesophageal reflux disease, unspecified whether esophagitis present Depression, unspecified depression type Eczema, unspecified type Seizure disorder (CMS-HCC) Unspecified epilepsy without mention of intractable epilepsy documented in this encounter [facility]* Diagnosis Seizure disorder (CMS-HCC)- Primary Unspecified epilepsy without mention of intractable epilepsy Focal epilepsy (CMS-HCC) Acute kidney injury (CMS-HCC) Eczema of right hand documented in this encounter [facility]* Diagnosis Seizure disorder (CMS-HCC)- Primary Unspecified epilepsy without mention of intractable epilepsy documented in this encounter [facility]* Diagnosis Seizure disorder (CMS-HCC)- Primary Unspecified epilepsy without mention of intractable epilepsy Breakthrough seizure (CMS-HCC) documented in this encounter [facility]* Diagnosis Cannabinoid hyperemesis syndrome- Primary Nausea and vomiting, unspecified vomiting type Cannabinoid hyperemesis syndrome Hypokalemia Hypopotassemia Dehydration RAKESH (acute kidney injury) Acute kidney failure, unspecified Seizures (HCC) Other convulsions documented in this encounter [facility] [place] [facility]* Diagnosis Seizure disorder (CMS-HCC)- Primary Unspecified epilepsy without mention of intractable epilepsy Breakthrough seizure (CMS-HCC) Cannabinoid hyperemesis syndrome documented in this encounter [facility] SystemEvaluation [facility]* Diagnosis Nausea and vomiting, unspecified vomiting type- Primary Hypokalemia Hypopotassemia RAKESH (acute kidney injury) Seizure disorder (CMS-HCC) Unspecified epilepsy without mention of intractable epilepsy Hospital discharge follow-up Other follow-up examination documented in this encounter [facility] System[facility] note* Diagnosis Cannabis hyperemesis syndrome concurrent with and due to cannabis abuse (HCC)- Primary documented in this encounter [facility] note* Diagnosis Cannabis hyperemesis syndrome concurrent with and due to cannabis abuse (HCC)- Primary Positive test examination or test, positive result documented in this encounter [facility] noteNo assessment information available [facility] Work Phone: Evaluation note* Diagnosis Missed documented in this encounter [facility] general Narrative - Reported* Type Description Date Medical History Hiatal hernia Medical HistoryulcersSurgical Historydouble [id number] [employer] Other Hospital Discharge instructionsNot on filedocumented in this encounterOhioHealth Dublin Methodist HospitalHospital Discharge instructions* Attachments The following attachments cannot be sent through Care Everywhere. * Substance Use Disorder (Thai) * Drug Use: Marijuana (Thai) documented in this encounterRiverside Tappahannock HospitalInstructionsNot on file documented in this encounterProAultman Hospital SystemInstructionsNot on file documented in this encounterProAultman Hospital SystemInstructionsNot on file documented in this encounterProAultman Hospital SystemInstructionsNot on file documented in this encounterProAultman Hospital SystemInstructionsNot on file documented in this encounterProAultman Hospital SystemInstructionsNot on file documented in this encounterProMedica Health SystemInstructionsNot on file documented in this encounterProAultman Hospital SystemInstructionsNot on file documented in this encounterProAultman Hospital SystemInstructionsNot on file documented in this encounterProAultman Hospital SystemInstructions* Attachments The following attachments cannot be sent through Care Everywhere. * Acute kidney injury (Thai) documented in this encounterProAultman Hospital SystemInstructionsNot on file documented in this encounterProAultman Hospital SystemInstructionsNot on file documented in this encounterProAultman Hospital SystemInstructionsNot on file documented in this encounterProAultman Hospital SystemReason for referral (narrative)No reason for referral information availableCenterville Ctr Work Phone: Reason for visit Narrative* Auth/CertSpecialty Diagnoses / ProceduresReferred By ContactReferred To Contact Diagnoses Sepsis Marie Singh, DO [address] [address] Phone: tel: fax: Referral IDStatusReasonStart DateExpiration DateVisits RequestedVisits [id number] [facility] Summary Purpose Family History No [...] By ContactReferred To Contact Diagnoses Seizure disorder ([facility]) Procedures Sleep Deprived EEG Megha Bragg MD [address] [place] [address], [address] [place] [address] [facility] [address] [place] [address] Phone: [phone] Referral IDStatusReasonStart DateExpiration DateVisits RequestedVisits [id number] / ProceduresReferred By ContactReferred To Contact Diagnoses Breakthrough seizure ([facility]) Seizure disorder ([facility] Procedures Retirement Monitoring for Epilepsy / LTME 5 Day Megha Bragg MD [address] [place] [address], [address] [place] [address] Referral IDStatusReasonStart DateExpiration DateVisits RequestedVisits [id number] Additional Source Comments INFORMATION SOURCE (unrecogn ized section and content) DATE CREATED AUTHOR 10/01/2022 [facility] DATE CREATED AUTHOR AUTHOR'S ORGANIZ ATION 01/21/2024 [facility] DATE CREATED AUTHOR AUTHOR'S ORGANIZ ATION 02/04/2024 [facility] DATE CREATED AUTHOR AUTHOR'S ORGANIZ ATION 11/14/2024 [facility] DATE CREATED AUTHOR AUTHOR'S ORGANIZ ATION 06/23/2025 [facility] DATE CREATED AUTHOR AUTHOR'S ORGANIZ ATION 07/09/2025 [facility] DATE CREATED AUTHOR AUTHOR'S ORGANIZ ATION 07/19/2025 [facility] DATE CREATED AUTHOR AUTHOR'S ORGANIZ ATION 07/28/2025 [facility] DATE CREATED AUTHOR AUTHOR'S ORGANIZ ATION 08/16/2025 [facility] REASON FOR VISIT (unrecogniz ed section and content) ReasonOnset DateCommentslevETIRAcetam (KEPPRA) 750 mg hozxzg9211/02/2024Reason CommentsAnxietyReasonOnset DateCommentsMed Hmglsd12/06/2024ReasonOnset Date CommentsMed Evckvm454ReasonCommentsMedication ProblemAnxiety medications not workingReasonOnset DateCommentsNew Patient Appt.4ReasonComments Follow-upPatient presents for follow up for seizuresReasonCommentsNew Patient Patient is here today as a new patient for Dx of Witnessed seizure-like activity SpecialtyDiagnoses / ProceduresReferred By ContactReferred To ContactNeurology Diagnoses Witnessed seizure-like activity ([facility]) Samantha Keyes, AUTO TRAVEL COUNSELOR-BEEF GRINDER [address] [place] [address] Megha Bragg MD [address] [place] [address] [place] [address] Referral IDStatusReasonStart DateExpiration DateVisits RequestedVisits [id number] Review Specialty Services Required /[id number]-laWjpfudFotze DateCommentsTransition Of Care11/15/2024ReasonOnset DateComments12/20/24 MAHSA TARYVHENHT49/04/2025Reason CommentsSeizuresPatient is here today for follow up [...] unspecified vomiting type Triny Dumas MD [address] [facility] [address] [place] [address] Phone: tel: fax: [facility] [address] [place] [address] Referral IDStatusReasonStart DateExpiration DateVisits RequestedVisits [id number] is here today for follow up on [...] Ottoniel Arias MD [address] [place] [address] PCP - GeneralInternal Medicine01/06/24Team MemberRelationshipSpecialtyStart Date End Date Ottoniel Arias MD [address] [place] [address] PCP - GeneralInternal Medicine11/04/24Team MemberRelationshipSpecialtyStart Date End Date Ottoniel Arias MD [address] [place] [address] PCP - GeneralInternal Medicine04/10/23Team MemberRelationshipSpecialtyStart Date End Date Ottoniel Arias MD [address] [place] [address] PCP - GeneralInternal [facility]01/06/24Team MemberRelationshipSpecialtyStart Date End Date Ottoniel Arias MD [address], [place] [address] PCP - GeneralInternal [facility]11/04/24Team MemberRelationshipSpecialtyStart Date End Date Ottoniel Arias MD [address], [place] [address] [facility]01/06/24Team MemberRelationshipSpecialtyStart Date End Date Ottoniel Arias MD [address], [place] [address] [facility] - [facility]04/10/23Team MemberRelationshipSpecialtyStart Date End Date Ottoniel Arias MD [address], [place] [address] PCP - GeneralInternal Medicine04/10/23Team MemberRelationshipSpecialtyStart Date End Date Ottoniel Arias MD [address], [place] [address] [facility]01/06/24Team MemberRelationshipSpecialtyStart Date End Date Ottoniel Arias MD [address], [place] [address] PCP - GeneralInternal Medicine01/06/24Team MemberRelationshipSpecialtyStart Date End Date Ottoniel Arias MD [address], [place] [address] PCP - GeneralInternal Medicine01/06/24Team MemberRelationshipSpecialtyStart Date End Date Ottoniel Arias MD [address], [place] [address] PCP - GeneralInternal Medicine11/04/24Team MemberRelationshipSpecialtyStart Date End Date Ottoniel Arias MD [address], [place] [address] [facility] - [facility]11/04/24Team MemberRelationshipSpecialtyStart Date End Date Ottoniel Arias MD [address], [place] [address] PCP - GeneralInternal Medicine11/04/24Team MemberRelationshipSpecialtyStart Date End Date Ottoniel Arias MD [address], [place] [address] PCP - GeneralInternal Medicine11/04/24Team MemberRelationshipSpecialtyStart Date End Date Ottoniel Arias ND [address], [place] [address] [facility] - [facility]04/25/25Team MemberRelationshipSpecialtyStart DateEnd Date Ottoniel Arisa MD [address], [place] [address] PCP - [facility]11/04/24Team MemberRelationshipSpecialtyStart Date End Date Ottoniel Arias MD [address], [place] [address] PCP - [facility]11/04/24Team MemberRelationshipSpecialtyStart Date End Date Ottoniel Arias ND [address], [place] [address] [facility] - [facility]04/25/25Team MemberRelationshipSpecialtyStart DateEnd Date Ottoniel Arias MD [address], [place] [address] [facility] - [facility]11/04/24Team MemberRelationshipSpecialtyStart Date End Date Ottoniel Arias ND [address], [place] [address] PCP - [facility]04/25/25 Team Status: Active Member Role Status Dates Ottoniel Arias MD Primary Care Provider Active S tart: May 30, 2025 Donavon Montalvo MDAttjayshree ProviderActiveStart: May 30, 2025 Team Status: Inactive Member Role Status Dates Francisco Chaidez PA-C Attending Provider Active St art: June 26, 2025 End: June 26, 2025Team MemberRelationshipSpecialtyStart DateEnd Date Ottoniel Arias ND [address], [place] [address] PCP - GeneralFamily Medicine04/25/25 Scheduled Active and [...] Oliver, PAMELA) * 2218 (Given - Provider: Sam Jane, PAMELA) * [...] * 1615 (Due - Provider: Samantha Walden [facility]) oseltamivir (TAMIFLU) capsule 30 mg 30 mg, [...] RN) * 2308 (New Bag - Provider: Sma Jane, RN) * 0410 (New Bag - [...] RN) * 0834 (Given - Provider: Samantha Oliver, RN) * 1424 (Given - Provider: Samantha [...] less than 70 mg/dL, Starting on 11/05/24 [id number], If patient conscious and taking PO. If [...] * 1526 (New Bag - Provider: Eliane Traecy RN) * 1603 (Stopped - Provider: Eliane [...] BE BASED ON THE PRIMARY CLINICAL RECORDS. [employer] provides no warranty or guarantee of the accuracy or completeness of information in this document.
[2025-08-26 08:51] LABS: Lipase 41.0 U/L (16.0-77.0); Magnesium 3.0 mg/dL (1.8-2.4)
[2025-08-26 08:55] LABS: Lactate/Lactic Acid 3.2 mmol/L (0.4-2.0); Potassium 2.5 mmol/L (3.5-5.1)
--- NOTE | 2025-08-26 08:59 | ECG_ITS ---
The [facility] Test Date: 2025-08-26 Pat Name: SHERI ALCALA Department: Room: - Gender: Female [employer]: : 2000 Requested By: [id number] Order Number: [id number] Reading MD: CLYDE ESPINAL M.D. Measurements Intervals [place] Rate: 78 P: 30 [place]: 142 QRS: 98 QRSD: 90 T: 36 QT: 360 QTc: 393 Interpretive Statements 1100 Sinus rhythm 7102 Moderate right axis deviation 9110 normal ECG Compared to ECG 08/23/2025 20:01:03 Sinus tachycardia no longer present Electronically Signed On 08-27-2025 20:21:16 EST by CLYDE ESPINAL M.D.
[2025-08-26 09:01] LABS: Segmented Neut Absolute Manual 14.01 10^3/uL (1.4-6.5); Segmented Neutrophils % Manual 73.0 (43.0-75.0)
[2025-08-26 09:02] LABS: Basophils Abs Manual 0.00 10^3/uL (0.00-0.10); Basophils Percent Manual 0.0 % (0.2-2.0); Eosinophils Absolute Manual 0.00 10^3/uL (0.00-0.70); Eosinophils Percent Manual 0.0 % (0.9-7.0); Lymphocytes Absolute Manual 3.45 10^3/uL (1.20-3.80); Lymphocytes Percent Manual 18.0 % (20.5-60.0); Monocytes Absolute Manual 1.72 10^3/uL (0.30-0.80); Monocytes Percent Manual 9.0 % (1.7-12.0)
--- NOTE | 2025-08-26 09:27 | US_ITS ---
[place] [id number] Patient Name: SHERI ALCALA MRN: [id number] date: 2000 Sex: F Assigned Patient Location: ER Current Patient Location: ER Accession/Order Number: [id number] Exam Date: 08/26/2025 09:28 Report Date: 08/26/2025 10:52 At the request of: OFELIA AZUL MD Procedure: US right upper quadrant LIMITED ABDOMINAL ULTRASOUND: CLINICAL HISTORY: RUQ pain COMPARISON: CT performed earlier today TECHNIQUE: Grayscale and color Doppler images of the right upper quadrant organs were obtained. FINDINGS: Pancreas: Visualized portions appear unremarkable. Liver: Unremarkable. Gallbladder: Unremarkable. No sludge. CBD: 3.7 mm RT KIDNEY: No Hydronephrosis US/US right upper quadrant IMPRESSION: NO ACUTE PROCESS. . Impression dictated by: Tono Cuellar Jr., D.O. 08/26/2025 10:52 AM Dictation Location: [place] [address] Electronically authenticated by: [id number] Y Date: 08/26/2025 10:52
[2025-08-26] MEDS: POTASSIUM CHLORIDE IN WATER 10 MEQ/100 ML PREMIX 100 MEQ IV ×3 (10:00→12:15)
--- NOTE | 2025-08-26 10:18 | ED.ABDPAIN1 ---
HPI - Abdominal Pain General Chief Complaint: Nausea/Vomiting/Diarrhea Stated Complaint: VOMITING, POSSIBLE FEVER, CHILLS Time Seen by Provider: 08/26/25 08:00 Source: patient Mode of arrival: walk-in History of Present Illness HPI narrative: 25-year-old female presenting to us for the second time within 5 days with nausea vomiting and recurring seizure, the patient have a history of seizure disorder but she has not been able to take her medication because of the nausea and the vomiting, patient has not been able to tolerate anything p.o. for the last few days Right now the patient is complaining also of right upper quadrant pain there was no other concerns no diarrhea no constipation The patient denies any fever or chills and she did had a miscarriage almost 2 months ago she was at 10 weeks The patient was discharged and then on Zofran after which she was feeling better but she said that she ran out of the medication she started vomiting again Patient had another seizure other than the one that she had earlier 5 days ago when she started being sick at that time she did hit her head in the shower and came to the ER but she also had another seizure last night Related Data Home Medications ?Medication ?Instructions ?Recorded ?Confirmed paroxetine HCl 40 mg tablet 40 mg PO DAILY 07/01/24 08/26/25 buspirone 7.5 mg tablet 7.5 mg PO BID 06/26/25 08/26/25 levetiracetam 500 mg tablet 1,500 mg PO Q12H 06/26/25 08/26/25 venlafaxine 37.5 mg 37.5 mg PO DAILY 06/26/25 08/26/25 capsule,extended release 24 hr aripiprazole 5 mg tablet 5 mg PO DAILY 08/26/25 08/26/25 doxepin 10 mg capsule 10 mg PO DAILY 08/26/25 08/26/25 lacosamide 100 mg tablet 100 mg PO BID 08/26/25 08/26/25 Previous Rx's ?Medication ?Instructions ?Recorded potassium chloride 10 mEq 10 meq PO BID 4 days #8 tabs 06/26/25 tablet,extended release famotidine 20 mg tablet (Pepcid) 20 mg PO BID #20 tabs 08/26/25 ondansetron 4 mg disintegrating 4 mg PO Q8H PRN nausea and 08/26/25 tablet vomiting 4 days #20 tabs pantoprazole 40 mg tablet,delayed 40 mg PO DAILY #30 tabs 08/26/25 release (Protonix) potassium bicarbonate-citric acid 20 meq PO BID 3 days #6 ea 08/26/25 20 mEq effervescent tablet Allergies Allergy/AdvReac Type Severity Reaction Status Date / Time No Known Drug Allergies Allergy Verified 08/26/25 07:58 Review of Systems ROS Status of ROS 10 or more systems reviewed and unremarkable except as noted in history and below PFSH [facility] Social History Little interest or pleasure in doing things: not at all Feeling down, depressed, or hopeless: not at all Exam Narrative Exam Narrative: Nurses notes and vital signs reviewed and patient is not hypoxic. General: Well-appearing and in no apparent distress. Skin: Warm, dry, no pallor noted. No rash. Head: Normocephalic, atraumatic. Cardiovascular: Regular Rate and Rhythm without murmur, gallop or rub. Respiratory: No accessory muscle use or respiratory distress. Lungs are clear to auscultation, no wheezing, rales or rhonchi Musculoskeletal: normal ROM, no calf or popliteal tenderness, no lower extremity edema/swelling GI: Abdomen is soft, non-distended. Normal bowel sounds. No masses appreciated. Right upper quadrant tenderness on superficial palpation negative Meza Neurological: A&O x4. No cranial nerve dysfunction observed. No truncal ataxia. Moves all extremities. Sensation intact. Psychiatric: Cooperative and interactive. Normal mood and affect. Constitutional Vital Signs, click to edit/add: Last Vital Signs Temp 98.2 F 08/26/25 07:53 Pulse 60 08/26/25 12:10 Resp 16 08/26/25 14:01 BP 131/84 08/26/25 13:43 Pulse Ox 99 08/26/25 13:50 O2 Del Method Room Air 08/26/25 07:53 Course Vital Signs Vital signs: Vital Signs Temperature 98.2 F 08/26/25 07:53 Pulse Rate 106 H 08/26/25 07:53 Respiratory Rate 16 08/26/25 07:53 Blood Pressure 125/104 H 08/26/25 07:53 Pulse Oximetry 97 08/26/25 07:53 Oxygen Delivery Method Room Air 08/26/25 07:53 Temperature 98.2 F 08/26/25 07:53 Pulse Rate 60 08/26/25 12:10 Respiratory Rate 16 08/26/25 14:01 Blood Pressure 131/84 08/26/25 13:43 Pulse Oximetry 99 08/26/25 13:50 Oxygen Delivery Method Room Air 08/26/25 07:53 MDM - Abdominal Pain MDM Narrative Medical decision making narrative: The patient EKG showing sinus rhythm with a heart rate of [address] elevation or depression no hypokalemic changes The patient CBC did show leukocytosis which was seen in prior workup and the patient did not have any source of infection The chemistry did show acute kidney injury in addition to hypokalemia of 2.5 The patient was provided 1 L fluid mostly normal saline after which she also provided with 30 mEq of potassium provided over 3 hours and she was provided 1 dose of Keppra 1500 mg as she missed her dose for the last few days CT abdomen pelvis showed that the patient have a biliary sludge and the ultrasound confirms that the patient does not have any acute cholecystitis signs The patient initially was planned to be admitted but patient did not want to be admitted she was provided with 2 L normal saline in addition to 30 mill equivalents of potassium Patient was tolerating p.o. intake in the ER and she wanted to be discharged she was instructed that she can leave AMA as she is putting her life at risk by deteriorating more specially that she was already discharged before on Zofran The patient mentioned that she just ran out of the medication that was she got worse she will continue to hydrate and come back tomorrow morning for further evaluation of her blood workup to make sure that the acute kidney injury as well as the potassium improved Lab Data Labs: Lab Results 08/26/25 08/26/25 08/26/25 Range/Units 08:16 08:17 11:31 WBC 19.2 H (4.0-11.0) 10^3/uL RBC 5.27 (4.20-5.40) 10^6/uL Hgb 15.9 (12.0-16.0) g/dL Hct 45.5 (36.0-48.0) % MCV 86.3 (81.0-99.0) fL MCH 30.2 (26.7-34.0) pg MCHC 34.9 (29.9-35.2) g/dL RDW 12.4 (11.0-15.0) % Plt Count 443 (150-450) 10^3/uL MPV 10.0 (9.5-13.5) fL Seg Neuts % (Manual) 73.0 (43.0-75.0) Lymphocytes % (Manual) 18.0 L (20.5-60.0) % Monocytes % (Manual) 9.0 (1.7-12.0) % Eosinophils % (Manual) 0.0 L (0.9-7.0) % Basophils % (Manual) 0.0 L (0.2-2.0) % Neutrophils # (Manual) 14.01 H (1.4-6.5) 10^3/uL Lymphocytes # (Manual) 3.45 (1.20-3.80) 10^3/uL Monocytes # (Manual) 1.72 H (0.30-0.80) 10^3/uL Eosinophils # (Manual) 0.00 (0.00-0.70) 10^3/uL Basophils # (Manual) 0.00 (0.00-0.10) 10^3/uL Sodium 134 L (136-145) mmol/L Potassium 2.5 L* (3.5-5.1) mmol/L Chloride 90 L (98-107) mmol/L Carbon Dioxide 27.8 (21.0-32.0) mmol/L Anion Gap 18.7 BUN 31.0 H (7.0-18.0) mg/dL Creatinine 1.99 H (0.55-1.02) mg/dL Est GFR ( Amer) 37 L (>=60 mL/min/1.73m^2) Est GFR (Non-Af Amer) 31 L (>=60 mL/min/1.73m^2) BUN/Creatinine Ratio 15.6 Glucose 133 H (74-106) mg/dL Lactate 3.2 H* 1.0 (0.4-2.0) mmol/L Calcium 9.8 (8.5-10.1) mg/dL Magnesium 3.0 H (1.8-2.4) mg/dL Total Bilirubin 0.7 (0.2-1.0) mg/dL AST 30 (15-37) U/L ALT 64 H (14-59) U/L Alkaline Phosphatase 104 (46-116) U/L Total Protein 9.5 H (6.4-8.2) g/dL Albumin 4.7 (3.4-5.0) g/dL Globulin 4.8 g/dL Albumin/Globulin Ratio 1.0 Lipase 41.0 (16.0-77.0) U/L Serum HCG, Qual Negative (NEGATIVE) POC Glucose 122 H (74-106) mg/dL Discharge Plan Discharge Stand Alone Forms: Portal Instructions Chief Complaint: Nausea/Vomiting/Diarrhea Clinical Impression: Hypokalemia, Breakthrough seizure, RAKESH (acute kidney injury), Acute gastritis Patient Disposition: Left Against Medical Advice Time of Disposition Decision: 13:55 Condition: Good Prescriptions / Home Meds: New famotidine [Pepcid] 20 mg tablet 20 mg PO BID Qty: 20 0RF pantoprazole [Protonix] 40 mg tablet,delayed release (DR/EC) 40 mg PO DAILY Qty: 30 0RF ondansetron 4 mg tablet,disintegrating 4 mg PO Q8H PRN (Reason: nausea and vomiting) 4 Days Qty: 20 0RF potassium bicarb-citric acid 20 mEq tablet, effervescent 20 meq PO BID 3 Days Qty: 6 0RF No Action paroxetine HCl 40 mg tablet 40 mg PO DAILY aripiprazole 5 mg tablet 5 mg PO DAILY doxepin 10 mg capsule 10 mg PO DAILY lacosamide 100 mg tablet 100 mg PO BID buspirone 7.5 mg tablet 7.5 mg PO BID levetiracetam 500 mg tablet 1,500 mg PO Q12H venlafaxine 37.5 mg capsule,extended release 24hr 37.5 mg PO DAILY potassium chloride 10 mEq tablet extended release 10 meq PO BID 4 Days Qty: 8 0RF Rx Instructions: recheck potassium in 4 days Print Language: Maltese Instructions: Acute Kidney Injury (DC), Diet for Stomach Ulcers and Gastritis (ED), Hypokalemia (ED), Epilepsy (DC) Additional Instructions: Please come back to the ER tomorrow to be reevaluated with a blood workup Referrals: Russ Arias ND [Primary Care Provider] - 1 week Discharge Date/Time: 08/26/25 14:16
[2025-08-26] MEDS: 0.9 % SODIUM CHLORIDE 500 ML IV ×2 (10:38→13:01)
[2025-08-26 11:59] LABS: Lactate/Lactic Acid 1.0 mmol/L (0.4-2.0)
== END 2025-08-26 14:16 | disposition left against medical advice (07) ==
PROVIDERS: Emergency Provider Emergency Medicine; PCP Student in an Organized Health Care Education/Training Program
DX: N17.9 Acute kidney failure, unspecified (principal); Z53.29 Procedure and treatment not carried out because of patient's decision for other reasons; E87.6 Hypokalemia; K29.70 Gastritis, unspecified, without bleeding; R56.9 Unspecified convulsions; R10.11 Right upper quadrant pain
CPT/HCPCS: 36415; 70450; 74176; 76705; 80053; 82948; 83605; 83690; 83735; 84703; 85007; 85027; 93005; 96365; 96366; 96367; 96375; 99285; J1953; J2405; J3480; J3490

== ENCOUNTER 2025-08-27 10:14 | Emergency (ER) | payer OTHER, SELFPAY ==
[2025-08-27 10:28] VITALS: BP 105/76; PULSE 87; TEMP 36.8; O2SAT 100; BMI 33.7
--- OUTSIDE RECORDS SUMMARY | 2025-08-27 10:52 | XMS_ITS | CCD ---
Author Organization [facility] Care Team Providers Care Silver Wrapper Name Role Phone REQUEST, DR NONE LISTED Primary Care Unavaila van SUAREZ, DR AMADOR Admitting Unavailable ERICK, DR AMADOR Attending Unavailable ERICK, DR AMADOR Consulting Unavailable Barb Woodard Unavailable CEE JIANG Referring Unavailable CEE JIANG Attending Unavailable CELINA PARKER Attending Unavailable CELINA PARKER Attending Unavailable CELINA PARKER Attending Unavailable MD Ottoniel Arias Primary Care Provider MD Obie Harley Admit Provider [phone] MD Obie Harley Attending Provider [phone] Ottoniel Arias MD Primary Care Provider [phone] Ottoniel Arias MD Primary Care Provider JES [...] Ottoniel PANG Primary Care Provider [facility] Provider Donavon Montalvo MD Attending Provider [phone] Francisco Chaidez PA-C Attending Provider MEGHA BRAGG [...] Medications MedicationDrug Class(es)DatesSig (Normalized)Sig (Original)Acetaminophen (3 sources)Start: 26-52-5970frfgjxnsvctdw (TYLENOL) tablet 650 mgStart: 64-47-2902youv 500 mg by mouth every six hours as needed for pain and fever and headacheStart: 11-05-2024 End: 54-29-3228VSFFbiwlnmio 15 mg oral tablet (17 sources)Atypical AntipsychoticStart: 96-02-1555vfcn 0.5 tablet by mouth in the morningARIPiprazole (ABILIFY) 15 mg tablet Take 0.5 tablets (7.5 mg total) by mouth in the morning. 10/14/2024 ActiveStart: 10-14-2024 End: 97-54-8717zpxo 1 tablet by mouth in the morningARIPiprazole (ABILIFY) 2 mg tablet Take 1 tablet (2 mg total) by mouth in the morning. 10/14/2024 Active Start: 26-65-9034lmsb 1 tablet by mouth once dailyARIPiprazole (ABILIFY) 5 MG tablet Take 1 tablet by mouth daily Activebenzocaine 200 mg/ml mucosal spray (1 source)Standardized Chemical AllergenStart: 71-17-2693gogZKCrik hydrochloride 5 mg oral tablet (8 sources)Start: 76-73-1005gkyEKJwzw (BUSPAR) 5 mg tablet Take 1 tablet [...] calcium gluconate 20 mg/ml injection (1 source)Start: 23-47-2754ozsnpqieek propionate 0.0005 mg/mg topical ointment (8 sources)CorticosteroidStart: 91-75-3016thltevbwvO (TEMOVATE) 0.05 % ointment Indications: Eczema of right hand Apply 1 Application topically nightly. 30 g 11/22/2024 Activeergocalciferol 1.25 mg oral capsule (2 sources)Provitamin D2 CompoundStart: 54-53-7606wzdn 1 capsule by mouth once famotidine (PEPCID) 20 MG/2ML 20 mg in sodium chloride (PF) 0.9 % 10 mL injection (1 source)Start: 19-93-8217fcuj 10 mL intravenously once daily20 mg, IntraVENous, DAILY, First dose on Thu04/25/25 at 1815, Until Discontinued, IV Push over minimum of 2 minutes - Dilute with 10 mL NSfolic acid 1 mg oral tablet (2 sources)Start: 76-89-7829btjq 1 tablet by mouth once dailyglucagon (rdna) 1 mg injection (1 source)Antihypoglycemic AgentStart: ml glucose 500 mg/ml prefilled syringe (2 sources)Start: 76-89-1715Hdycr: ml glucose 50 mg/ml / potassium chloride 0.02 meq/ml / sodium chloride 4.5 mg/ml injection (1 source)Start: 60-03-0700FhdaqOIUtzt, at 100 mL/hr, CONTINUOUS, Starting [place] Thu04/26/25 [place] 7[address]40 ml heparin sodium, porcine 5000 unt/ml injection (1 source)Unfractionated Heparin, Anti-coagulantStart: 34-06-1801gvqtpblowd 100 mg oral tablet (8 sources)Anti-epileptic AgentStart: 11-12-2024 End: 61-06-3648whsc 1 tablet by mouth in the morning, then take 1 tablet by mouth at bedtimelacosamide (VIMPAT) 100 mg tablet Indications: Seizure (CMS-HCC) Take 1 tablet (100 mg total) by mouth in the morning and 1 tablet (100 mg total) before bedtime. Do all this for 30 days. 60 tablet 11/12/2024 12/12/2024 Active Start: 11-12-2024 End: 46-59-9494Lbtuu: 25-80-0073kudnhida lactate 120 mg/ml topical cream (17 sources)Start: 29-38-7866tqablohz lactate (AMLACTIN) 12 % cream Apply 1 Application topically 2 times daily 11/12/2024 Owoafj47 ml magnesium sulfate 40 mg/ml injection (4 sources)Start: 45-95-7893Rnxpq: 47-25-7693Dflmm: 11-07-2024 End: 33-53-3062ptwbawuamheqnl 10 mg oral tablet (1 source)Dopamine-2 Receptor AntagonistStart: 27-11-1549Sfussl 10 MG 1 Tablet Orally 2-3 times per day prn nausea and vomiting 18 Jul, 2023 Pikxsd44 hr nicotine 0.583 mg/hr transdermal system (1 source)Cholinergic Nicotinic AgonistStart: 37-40-6147SWUTGzcoiz 5 mg oral tablet (2 sources)Atypical AntipsychoticStart: 27-27-4861oxnm 1 tablet by mouth every six hours as neededomeprazole 20 mg delayed release oral capsule (1 source)Proton Pump Inhibitortake 1 capsule by mouth in the morningOmeprazole 20 MG TAKE 1 CAPSULE BY MOUTH IN THE MORNING Oral for 30 Days Activeondansetron 4 mg disintegrating oral tablet (15 sources)Serotonin-3 Receptor AntagonistStart: 00-64-1974pkib 1 tablet by mouth three times daily as needed for nauseaondansetron (ZOFRAN-ODT) 4 MG disintegrating tablet Take 1 tablet by mouth 3 times daily as needed for Nausea or Vomiting 21 tablet 06/20/2025 ActiveStart: 06-20-2025 End: mg, IntraVENous, ONCE, 1 dose, On Thu06/20/25 at 1230Start: 05-13-2025 End: mg, IntraVENous, ONCE, 1 dose, On 05/13/25 at 1515Start: 21-82-3232mpzn 1 tablet by mouth every eight hours as needed for nausea ondansetron ODT (ZOFRAN ODT) 4 mg disintegrating tablet Dissolve 1 tablet (4 mg total) on tongue every 8 (eight) hours as needed for nausea for up to 10 doses. 10 tablet 02/23/2025 ActiveStart: 02-23-2025 End: 45-06-9223kbsurevwtox ODT (ZOFRAN ODT) 4 mg disintegrating tablet Dissolve 1 tablet (4 mg total) on tongue 3 (three) times a day as needed for nausea for up to 3 doses. 3 tablet 03/01/2025 05/05/2025 Discontinued (Duplicate Listing) Start: 33-14-5353fmig 4 mg intravenously every six hours as needed for nausea and vomitingStart: 65-16-1278Ofmknl 4 MG 1 tablet ODT tid prn 15 Jun, 2023 Not-Takingondansetron (ZOFRAN-ODT) disintegrating tablet 4 mg (1 source)Start: 05-11-6981hkzoyskheuh (ZOFRAN-ODT) disintegrating tablet 4 mg polyethylene glycol 3350 05550 mg powder for oral solution (1 source)Osmotic LaxativeStart: 48-15-3484vgeppiinnjaqzlwhv potassium chloride 20 meq extended release oral tablet (7 sources)Start: 05-13-2025 End: 01-68-1550pmoj 1 tablet by mouth once dailypotassium chloride (KLOR-CON M) 20 MEQ extended release tablet Take 1 tablet by mouth daily for 4 doses 4 tablet 05/13/2025 ActiveStart: 04-26-2025 End: 06-79-803466 mEq, Oral, ONCE, 1 dose, On Thu04/26/25 at 1200, Do not crush, chew, or suck on tablet. Tablet may also be broken in half and each half swallowed separately.Start: 24-24-8628rmwtqqlqj chloride (KLOR-CON M) extended release tablet 40 mEqStart: 04-25-2025 End: 81-76-828587 mEq, IntraVENous, ONCE, 1 dose, On Thu04/25/25 at 1300, at 100 mL/hr, Potassium chloride doses are limited to a maximum of six consecutive doses before reassessment of laboratory values is needed.promethazine hydrochloride 12.5 mg oral tablet (2 sources)PhenothiazineStart: 76-94-6149vjce 1 tablet by mouth every six hours as needed for nauseapromethazine (PHENERGAN) 12.5 mg tablet Indications: Nausea and vomiting, unspecified vomiting typeTake 1 tablet (12.5 mg total) by mouth every 6 (six) hours as needed for nausea or vomiting. 30 tablet 05/05/2025 Activepromethazine (PHENERGAN) 12.5mg in sodium chloride 0.9% 50 mL IVPB SOLN 12.5 mg (1 source)Start: 71-73-709447.5 mg, IntraVENous, at 100 mL/hr, Administer over 30 Minutes, EVERY 6 HOURS PRN, Nausea, Startingon Thu04/26/25 at 0727, Administer via antecubital vein or higher.thiamine 100 mg oral tablet (2 sources)Start: 44-05-0029uwou 1 tablet by mouth twice dailytraZODone hydrochloride 50 mg oral tablet (2 sources)Serotonin Reuptake InhibitorStart: 16-55-6370dtvx 1 tablet by mouth once daily at [...] full glass of water. [Order 3 End]Start: 71-54-2846Epumg: 08-90-2212Jjyjm: 11-12-2024 [Order 1 Start] Name: potassium chloride [...] 1 hour. [Order 3 End]Start: 11-07-2024 End: 25-81-7783Zbuzy: 11-07-2024 End: 31-89-8311Hplcy: 11-06-2024 End: 07-87-8115Uqick: 11-05-2024 End: 11-05-2024 Completed/Discontinued Medications MedicationDrug Class(es)DatesSig (Normalized)Sig (Original)amLODIPine 5 mg oral tablet (1 source)Dihydropyridine Calcium Channel BlockerStart: 11-09-2024 End: 84-16-2013oqhnhocgt 0.25 mg/ml topical cream (1 source)Start: 06-20-2025 End: 91-87-3540thonq 1 dose topically onceTopical, Once, On Thu06/20/25 at 1230, For 1 dose, Apply to abdomen. Do not apply to wounds, damaged,broken or irritated skin. Do not cover with bandage. Do not use in combination with external heat source (eg. heating pad)cariprazine 1.5 mg oral capsule (2 sources)Atypical Antipsychotic End: 32-48-4763axuk 1 capsule by mouth in the morningcariprazine (VRAYLAR) 1.5 mg capsule Take 1 capsule (1.5 mg total) by mouth in the morning. Active cefTRIAXone 2000 mg injection (2 sources)Cephalosporin AntibacterialStart: 11-05-2024 End: 32-54-7129ubds 2000 mg intravenously every twenty-four hourscyclobenzaprine hydrochloride 10 mg oral tablet (8 sources)Muscle RelaxantStart: 01-06-2024 End: ml dexamethasone phosphate 10 mg/ml injection (1 source)CorticosteroidStart: 11-05-2024 End: 01-74-3411tfal 10 mg intravenously every six oktgy731 ml dexmedetomidine 0.004 mg/ml injection (1 source)Central alpha-2 Adrenergic AgonistStart: 11-05-2024 End: 03-82-9701isyxswgjfhBQWQR (2 sources)Histamine-1 Receptor AntagonistStart: 11-11-2024 End: 57-18-7402Yosgl: 54-68-9157ylqb 25 mg by mouth every six hours as needed2 ml droperidol 2.5 mg/ml injection (1 source)Dopamine-2 Receptor AntagonistStart: 04-25-2025 End: .5 mg, IntraVENous, ONCE, 1 dose, On Thu04/25/25 at 1230Start: 04-25-2025 End: .5 mg, IntraVENous, ONCE, 1 dose, On Thu04/25/25 at 53615.4 ml enoxaparin sodium 100 mg/ml prefilled syringe (1 source)Low Molecular Weight HeparinStart: 13-73-8584zpmite 40 mg by subcutaneous injection once daily40 [...] mg/ml injection (2 sources)Opioid AgonistStart: 11-05-2024 End: 82-84-6384brfp 25 ug intravenously every hour as neededhydrOXYzine hydrochloride 25 mg oral tablet (14 sources)AntihistamineStart: 11-03-2024 End: 03-14-6537ccdd 25 mg by mouth every eight hours as neededStart: 04-21-2024 take 1 capsule by mouth every six hours as needed for anxietyStart: 09-09-2023 End: 05-86-6538efsqxshgo 800 mg oral tablet (8 sources)Nonsteroidal Anti-inflammatory DrugStart: 01-06-2024 End: 82-89-2690botp 800 mg by mouth every eight hours as needed for pain iopamidol (ISOVUE-370) 76 % injection 75 mL (1 source)Start: 04-25-2025 End: 98-55-0512emdp 1 dose intravenously once75 mL, IntraVENous, IMG ONCE PRN, 1 dose, Starting on Thu04/25/25 at 1313, Until Thu04/25/25 at 1314, Other lamoTRIgine 100 mg oral tablet (5 sources)Mood Stabilizer, Anti-epileptic AgentStart: 09-14-2024 End: 72-75-6699Omdkf: 53-31-7619mqbiTTHmgbb (LaMICtal) 100 mg tablet Take 100 mg in the morning and 50 mg at night for 2 weeks, after that start taking 100 mg once in the morning and once at night and continue on that dose 60 tablet 2 09/14/2024 ActiveStart: 48-22-0408pvbtYLWarap (LaMICtal) 100 mg tablet Take 110 mg by mouth. 06/23/2024 ActiveStart: 57-93-2629ewmb 1 tablet by mouth once daily levETIRAcetam 750 mg oral tablet (20 sources)Start: 77-20-9408bkdi 750 mg by mouth twice awohv283 mg, Oral, 2 TIMES DAILY, First dose on Thu04/25/25 at 2100, Until Discontinued, Do not crush orchew.Start: 11-17-6412xupt 3 tablets by mouth in the morning, then take 3 tablets by mouth at bedtimelevETIRAcetam (KEPPRA) 500 mg tablet Indications: Seizure disorder (CMS-HCC) Take 3 tablets (1,500 mg total) by mouth in the morning and 3 tablets (1,500 mg total) before bedtime. 540 tablet 1 03/15/2025 ActiveStart: 12-21-2024 End: 29-06-0653bypq 2 tablets by mouth in the morning, then take 2 tablets by mouth at bedtimelevETIRAcetam (KEPPRA) 500 mg tablet Indications: Seizure disorder (CMS-HCC) Take 2 tablets (1,000 mg total) by mouth in the morning and 2 tablets (1,000 mg total) before bedtime. 360 tablet 1 12/21/2024 03/15/2025 Discontinued (Reorder)Start: 11-12-2024 End: 75-00-0372usig 1 tablet by mouth in the morning, then take 1 tablet by mouth at bedtimelevETIRAcetam (KEPPRA) 500 mg tablet Take 1 tablet (500 mg total) by mouth in the morning and 1 tablet (500 mg total) before bedtime. 12/10/2024 12/21/2024 Discontinued (Reorder)Start: 11-07-2024 End: 29-37-9335Rtfpw: 11-05-2024 End: 38-19-4469tsqz 1000 mg intravenously every twelve hoursStart: 09-14-2024 End: 68-99-7988tkvdvbkny 0.05 mg/mg medicated patch (8 sources)Antiarrhythmic, Amide Local AnestheticStart: 01-06-2024 End: 43-72-4360argmjaVLOJDTGxrgrl (7 sources)CorticosteroidStart: 11-03-2024 End: 71-91-7962Htepw: 01-06-2024 End: 06-84-9330qndqyaKIJJVNMidcbf (MEDROL, PENELOPE,) 4 mg tablet follow package directions 21 tablet 01/06/2024 07/12/2024 Discontinued (Therapy completed) Start: 07-57-6447zasatfPZPZEAEpycay (MEDROL, PENELOPE,) 4 mg tablet follow package directions 21 tablet 01/06/2024 ActiveStart: 42-60-5718evncwlBYWNPQEfbnqz (MEDROL, PENELOPE,) 4 mg tablet follow package directions 21 tablet 0 01/06/2024 ActivemetroNIDAZOLE 500 mg oral tablet (1 source)Nitroimidazole AntimicrobialStart: 11-05-2024 End: 17-18-3754iluxrztpadz 30 mg oral capsule (6 sources)Neuraminidase InhibitorStart: 11-12-2024 End: 36-99-6857aaze 1 capsule by mouth in the morning, then take 1 capsule by mouth at bedtimeoseltamivir (TAMIFLU) 30 mg capsule Take 1 capsule (30 mg total) by mouth in the morning and 1 capsule (30 mg total) before bedtime. Do all this for 4 days. 8 capsule 11/12/2024 11/16/2024 ExpiredStart: 11-12-2024 End: 15-53-6038Frzrl: 11-11-2024 End: 27-74-8510KFPekfvjll hydrochloride 20 mg oral tablet (20 sources)Serotonin Reuptake InhibitorStart: 23-30-7505ncnz 40 mg by mouth once daily in the mg, Oral, EVERY MORNING, First dose on Thu04/26/25 at 0900, Until DiscontinuedStart: 11-13-2024 End: 24-88-8991wlua 1 tablet by mouth in the morningPARoxetine (PAXIL) 10 mg tablet Take 1 tablet (10 mg total) by mouth in the morning for 30 days. 30tablet 11/13/2024 12/13/2024 ActiveStart: 11-05-2024 End: 48-05-4572Ntewl: 10-11-2024 End: 97-97-4837Buyvi: 10-27-2023 End: 32-89-5963dnju 1 tablet by mouth once daily in the morningPARoxetine (PAXIL) 40 mg tablet Take 1 tablet (40 mg total) by mouth every morning. 12/10/2024 ActiveStart: 65-43-1224ijna 1 tablet by mouth in the morning PARoxetine (PAXIL) 20 mg tablet Indications: Generalized anxiety disorder Take 1 tablet (20 mg total) by mouth in the morning. 90 tablet 2 10/08/2023 Active Start: 09-09-2023 End: 38-30-0131rltd 1 tablet by mouth in the morningPARoxetine (PAXIL) 10 mg tablet Indications: Generalized anxiety disorder Take 1 tablet (10 mg total) by mouth in the morning. 30 tablet 2 09/09/2023 10/08/2023 Discontinuedpotassium bicarbonate 20 meq effervescent oral tablet (1 source)Start: 04-25-2025 End: 73-51-9692nrdl 3-4 tablets by mouth once40 mEq, Oral, [...] mg/ml injectable solution (4 sources)PhenothiazineStart: 05-13-2025 End: 16-38-060002 mg, IntraVENous, ONCE, 1 dose, On 05/13/25 at 1615, If administering IV push, administer at a maximum rate of 5 mg/minute. Patients should remain lying down following administration and be reassessed for relief of nausea and presence of hypotension. Patients should be assisted the first time they get up after administration.Start: 38-06-9264diub 1 tablet by mouth every six hours as needed for nausea and vomitingprochlorperazine (COMPAZINE) 10 MG tablet Take 1 tablet by mouth every 6 hours as needed (Nausea and Vomiting) 12 tablet 05/13/2025 Wnmitb50 ml sodium chloride 9 mg/ml injection (10 [...] mL Midline or CentralLine = 20 mL/lumenStart: 51-55-0933Ivadc: 04-25-2025 End: 77-67-8294XrkhdTHSioe, at 75 mL/hr, CONTINUOUS, Starting on Thu04/25/25 at 1700, For 24 hours, Complete last bag that is running at 24 hours and then saline lock IVStart: 11-05-2024 End: 98-37-5478qhKMNqnggy 4 mg oral tablet (6 sources)Central alpha-2 Adrenergic AgonistStart: 01-07-2024 End: 00-55-1544viIBNtcugl (ZANAFLEX) 4 mg tablet Indications: Seizure (CMS-HCC) , Muscle cramp Use 1 tab each night scheduled. If still having muscle cramps spasm can have 1 tab in day as needed. 60 tablet 01/07/2024 07/12/2024 Discontinued (Discontinued by another clinician)venlafaxine 37.5 mg oral tablet (20 sources)Serotonin and Norepinephrine Reuptake InhibitorStart: 29-68-4681cmey 37.5 mg by mouth once daily37.5 mg, Oral, DAILY, First dose on Thu04/25/25 at 1700, Until DiscontinuedStart: 29-18-5855diht 1 capsule by mouth every twenty- four hours in the morningvenlafaxine XR (EFFEXOR XR) 37.5 mg 24 hr capsule Take 1 capsule (37.5 mg total) by mouth in the morning. 11/21/2024 ActiveStart: 67-07-2570jfuf 1 tablet by mouth once daily at breakfastvenlafaxine 75 MG tablet extended release 24hr 24 hr tablet Take 1 tablet (75 mg total) by mouth daily with breakfast. 09/05/2024 ActiveStart: 04-21-2024 End: 38-46-6911Htnzv: 03-22-2024 End: 44-92-2804xxpd 1 capsule by mouth once dailyVenlafaxine 37.5 mg capsule,extended release 24hr Discontinued 37.5 MG PO Daily April 17, 2024 12:0 0am April 22, 2024 8:12amStart: 46-15-8908heln 1 capsule by mouth every twenty- four hours in the morningvenlafaxine XR (EFFEXOR XR) 37.5 mg 24 hr capsule Indications: Anxiety Take 1 capsule (37.5 mg total) by mouth in the morning. 90 capsule 03/22/2024 ActiveStart: 11-24-2023 End: 74-93-5542qswm 1 capsule by mouth every twenty-four hours in the morning venlafaxine XR (EFFEXOR XR) 37.5 mg 24 hr capsule Indications: Anxiety Take 1 capsule (37.5 mg total) by mouth in the morning. 90 capsule 11/24/2023 02/08/2024 Discontinued (Reorder) Problems Active Problems Problem ClassificationProblemDateDocumented DateEpisodic/ChronicAcute and unspecified renal failure (20 sources)Acute renal failure syndrome; Translations: [Acute kidney failure, unspecified]Onset: 445412-66-9552YlmrytepDmrofhk disorders (20 sources)Anxiety; Translations: [Anxiety disorder, unspecified]Onset: 034739-71-6542NhaxcmyXcolytodo and vision defects (20 sources)Visual impairment; Translations: [Unspecified visual loss]Onset: 558464-94-9683BmhejzoVzawcvwc; convulsions (20 sources)Seizure disorder; Translations: [Epilepsy, unspecified, not intractable, without status epilepticus]Onset: hronic Epilepsy; convulsions (20 sources)Neurological finding; Translations: [Unspecified convulsions]Onset: 09-12-2024 Resolved: 273459-38-2256MdmavmvqSajdkfazkz disorders (20 sources)Gastro-esophageal reflux disease without esophagitis; Translations: [Gastroesophageal reflux disease]Onset: 997265-99-4155UopuslxWcihakxhh (3 sources)Influenza due to Influenza A virus subtype H1N1; Translations: [Influenza due to other identified influenza virus with other respiratory manifestations]Onset: 692176-55-6624KljwnsyrHibm disorders (20 sources)Depressive disorder; Translations: [Depression]Onset: 02-06-2023 23-29-9251GbxoaafGaxn disorders (20 sources)Mood disorders; Translations: [Depression, unspecified]Onset: 02-06-2023 Resolved: Nausea and vomiting (19 sources)Nausea with vomiting, unspecified; Translations: [Nausea and vomiting]Onset: 87-07-1336SpvayrhdTqucp aftercare (1 source)Post-discharge follow-up; Translations: [Encounter for follow-up examination after completed treatment for conditions other than malignant neoplasm]43-17-0988ViktykmtZuzzw complications of (1 source)Missed miscarriage; Translations: [Missed ]63-43-6682Rrlyruio Other complications of (1 source)Missed ; Translations: [Missed ]Onset: 07-11-2025 EpisodicOther complications of (1 source)Spotting complicating , first trimester; Translations: [Spotting complicating , first trimester]Onset: 80-79-4925CtaojjbpPycmm connective tissue disease (2 sources)Non-traumatic rhabdomyolysis; Translations: [Rhabdomyolysis] 02-58-2318MywypqhxGlxnu connective tissue disease (1 source)Rhabdomyolysis; Translations: [Rhabdomyolysis]Onset: 11-05-2024 EpisodicOther female genital disorders (1 source)Recurrent loss; 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] Onset: 24-18-6236RyergywfIkoor liver diseases (2 sources)Enzyme level - finding; Translations: [Transaminitis]11-12-2024 EpisodicOther and delivery including normal (2 sources) test positive; Translations: [Encounter for test, result positive]Onset: 657030-52-2629EyygifzdZrzvzixo codes; unclassified (1 source)Altered mental status, unspecified; Translations: [Altered mental status, unspecified]Onset: 16-67-2088MsdalqmgVbfyerfq codes; unclassified (1 source)Disorientation, unspecified; Translations: [Disorientation, unspecified]Onset: 18-53-9220KkqnuxdbCxttbydz codes; unclassified (1 source)Altered mental statusOnset: 62-85-9308KkyukdjkRcnzgyybw and history of mental health and substance abuse codes (1 source)Personal history of nicotine dependence; Translations: [PERSONAL HISTORY OF NICOTINE DEPEND]Onset: 57-94-0228CrzlpafqEyuxdwwwqsv; intervertebral disc disorders; other back problems (2 sources)Lumbago with sciatica, left side; Translations: [Lumbago with sciatica, left side]Onset: 64-72-4716UuzvqxouNbzqdjjan-related disorders (3 sources)Cannabis hyperemesis syndrome co-occurrent and due to cannabis abuse; Translations: [Cannabis abusewith other cannabis-induced disorder]Onset: 640805-05-8037JfjtrkcJjnlpmunszqa (1 source)Elevation of levels of liver transaminase levels; Translations: [Elevation of levels of liver transaminase levels]Onset: 33-19-2221Mutwhshtsudr (1 source)Drug rash with eosinophilia and systemic symptoms syndrome; Translations: [Drug rash with eosinophilia and systemic symptoms syndrome]Onset: 81-18-7161Alulambkmlmh (1 source)illOnset: 41-88-6500Iehinjxucqxq (1 source)inquiry of how far along in pregnancyOnset: 06-19-2025 Past or Other Problems Problem ClassificationProblemDateDocumented DateEpisodic/ChronicAbdominal pain (2 sources)Unspecified abdominal pain; Translations: [Abdominal pain]Onset: 69-08-6419RerotiseOkvmanty reactions (20 sources)Eczema; Translations: [Dermatitis, unspecified]Onset: 02-06-2023 73-94-5245MerzhqfnVrwbodp dysrhythmias (2 sources)Tachycardia, unspecified; Translations: [Tachycardia, unspecified] Onset: 58-94-1778ByxxukefY Codes: Adverse effects of medical drugs (1 source)Adverse effect of unspecified drugs, medicaments and biological substances, initial encounter; Translations: [Adverse effect of unspecified drugs, medicaments and biological substances, initial encounter]Onset: 61-95-1445JaqghrqiMhomm and electrolyte disorders (8 sources)Other disorders of electrolyte and fluid balance, not elsewhere classified; Translations: [Hypokalemia]Onset: 242924-25-0932Pnbfcjul Gastrointestinal hemorrhage (1 source)Hematemesis; Translations: [Hematemesis]Onset: 33-10-3270Okcuzrkv Noninfectious gastroenteritis (1 source)Noninfective gastroenteritis and colitis, unspecified; Translations: [Noninfective gastroenteritis and colitis, unspecified]Onset: 64-66-2620Yqynroxc Other connective tissue disease (1 source)Cramp; Translations: [Cramp and spasm]68-43-0072EybyzyxdHfvjk disorders of stomach and duodenum (1 source)Adverse reaction to cannabis; Translations: [Cannabinoid hyperemesis syndrome]Onset: 820633-04-6709QrojdnwkUygxy gastrointestinal disorders (1 source)Diarrhea, unspecified; Translations: [Diarrhea, unspecified]Onset: 14-72-5678KylxgsgyHwmuoclmlj (except in labor) (2 sources)Sepsis; Translations: [Sepsis, unspecified organism]Onset: 11-04-2024 EpisodicSubstance-related disorders (2 sources)Cannabis use, unspecified, uncomplicated; Translations: [CANNABIS USE UNS UNCOMPLICATED]Onset: 67-73-1550OhljpxnrUcjuzwthxaek (13 sources)Onset: 07-13-2024 Resolved: Results Test NameValueInterpretationReference RangeFacilityHCG, Quanton [id number], Quant<0.3Ctcnwc9-5DekxxLakehealth Tripoint Medical CenterComment on above:Result Comment: Non-preg premeno <=5 Postmeno <=8 Male <=3 If HCG results do not concur with clinical observations, additional testing to confirm results is recommended.Performed By: #### APTMUT, AMTHFR #### [facility] [address] [place] [address] [employer]: Melchor Rubin MD #### LUPPRO #### [facility] [address] [place], [place] [id number] [employer]: Temo Tipton MD [address] [address] [employer]: Christian Hanley MDhCG, Quantitative, Pregnancyon 14-82-0094MIU.beta subunit QnBon [facility] HospitalComment on above: Non-preg premeno <=5 Postmeno <=8 Male <=3 If HCG results do not concur with clinical observations, additional testing to confirm results is recommended. Bon [facility] HospitalLupus Anticoagulanton 59-03-7356Xtfxns Kenneth Viper NegativeNormalNLUPLakehealth Tripoint Medical CenterComment on above:Performed By: #### APTMUT, AMTHFR #### [facility] [address] [place] [address] [employer]: Melchor Rubin MD #### LUPPRO #### [facility] [address] [place] [address] [employer]: Temo Tipton MD [facility] [address] [place] [address] [place] [address] [employer]: MURRAY Singh Gene Mutationon 76-95-2815ATIOK 1286 A>C Mut HeterozygousGood Samaritan Hospital HospitalComment on above:Performed By: #### APTMUT, AMTHFR #### [facility] [address] [place] [address] [employer]: Melchor Rubin MD #### LUPPRO #### [facility] [address] [place] [address] [employer]: Temo Tipton MD [address] [place] [phone] [employer]: MURRAY Singh 655C>T MutHeterozygousGood Samaritan Hospital HospitalComment on above:Performed By: #### APTMUT, AMTHFR #### [facility] [address] [place] [address] [employer]: Melchor Rubin MD #### LUPPRO #### [facility] [address] [place] [address] [employer]: Temo Tipton MD [address] [place] [phone] [employer]: MURRAY Singh InterpretationSee NoteSelect Medical TriHealth Rehabilitation HospitalComment on above:Result Comment: (NOTE) Indication for testing: Determine genetic contribution to hyperhomocysteinemia. Compound Heterozygous MTHFR c.665C>T/c.1286A>C: One copy of each of the two MTHFR gene variants tested, c.665C>T (previously designated C677T) and c.1286A>C (previously designated I0152L) were detected. This genotype may be associated [...] has an effect on cardiovascular disease. The [employer] [employer] Practice Guidelines indicate [...] a contributing factor to hyperhomocysteinemia. Variants Tested: c.665C>T(p.Rjw384Jhm) and c.1286A>C(p.Vqb094Qhf). (legacy names C677T and O6538E, respectively). Clinical Sensitivity: Undefined; hyperhomocysteinemia is caused [...] developed and its performance characteristics determined by [employer]. It has not been cleared or approved by the US Food and Drug Administration. This test was performed in a CLIA certified laboratory and is intended for clinical purposes. Counseling and informed consent are recommended for genetic testing. Consent forms are available online. Performed By: [employer] [address] [place] [address] Floor Runner: Jose Juan Rasheed MD, PhD CLIA Number: [id number] By: #### APTMUT, AMTHFR #### [facility] [employer] [address] [place] [id number] [employer]: Melchor Rubin MD #### LUPPRO #### [facility] [address] [place] [address] [employer]: Temo Tipton MD [address] [place], [place] [phone] [employer]: MURRAY Singh SPECIMENWhole BloodNormalLakehealth Tripoint Medical CenterComment on above:Performed By: #### APTMUT, AMTHFR #### [facility] [address] [place] [address] [employer]: Melchor Rubin MD #### LUPPRO #### [facility] [address] [place] [address] [employer]: Temo Tipton MD [address] [place], [place] [phone] [employer]: Dimitri Singh 53-70-9898Lyka Out Report(NOTE) [facility] Rehabilitation HospitalComment on above:Result Comment: APC Resistance Profile with [...] #### APTMUT, AMTHFR #### [facility] [address] [place] [address] [employer]: Melchor Rubin MD #### LUPPRO #### [facility] [address] [place] [address] [employer]: Temo Tipton MD [address] [place], [place] [phone] [employer]: AWILDA SinghT Mutation 47780wd [id number] [id number] VARIANT NegativeNormalMercy Gaylord HospitalComment on above:Result Comment: (NOTE) Indication for testing: Assess genetic risk for thrombosis. NEGATIVE: The Factor II, prothrombin E58610I mutation, was not detected. Other causes of [...] Smyth, Ph.D. BACKGROUND INFORMATION: Prothrombin (F2) c.*97G>A (E26253E) Pathogenic Variant CHARACTERISTICS: The Factor II, c.*97G>A (J40089T) pathogenic variant is a common genetic risk [...] CAUSE: Homozygosity or heterozygosity for F2 c.*97G>A (I93936V). PATHOGENIC VARIANT TESTED: F2 c.*97G>A (Z84191R). CLINICAL SENSITIVITY FOR VENOUS THROMBOSIS: Approximately 10 percent. METHODOLOGY: Polymerase chain reaction and fluorescence monitoring. ANALYTICAL SENSITIVITY AND SPECIFICITY: 99 percent. LIMITATIONS: Diagnostic errors can occur due to rare sequence variations. F2 gene variants, other than c.*97G>A (Z31603B), will not be detected. This test was developed and its performance characteristics determined by [employer]. It has not been cleared or approved by the US Food and Drug Administration. This test was performed in a CLIA certified laboratory and is intended for clinical purposes. Counseling and informed consent are recommended for genetic testing. Consent forms are available online. Performed By: [facility] [address] [place] [address] Floor Runner: Jose Juan Rasheed MD, PhD CLIA Number: [id number] By: #### APTMUT, AMTHFR #### [facility] [address] [place] [address] [employer]: Melchor Rubin MD #### LUPPRO #### [address] [address] [employer]: Temo Tipton MD [address] [place] [address] [employer]: JENARO Singh PCR SPECIMENWhole BloodNormalLakehealth Tripoint Medical CenterComment on above:Performed By: #### APTMUT, AMTHFR #### [address] [address] [employer]: Melchor Rubin MD #### LUPPRO #### [address] [address] [employer]: Temo Tipton MD [address] [place] [address] [employer]: Christian Hanley MDLupus Anticoagulanton 44-67-9925Qbbxufihknthabd IgM<0.2Fdkxax8.0-10.0Lakehealth Tripoint Medical CenterComment on above:Result Comment: Reference Range: <10.0 Negative 10.0-40.0 Equivocal >40.0 PositivePerformed By: #### APTMUT, AMTHFR #### [facility] [address] [place] [address] [employer]: Melchor Rubin MD #### LUPPRO #### [address] [address] [employer]: Temo Tipton MD [address] [place] [phone] [employer]: Morena Singh IgA2.6 APLNormal0.0-14.0[facility] HospitalComment on above:Result Comment: Reference Range: <14.0 Negative 14.0-20.0 Equivocal >20.0 Positive When results are Equivocal, it is recommended to retest after 4-6 weeks. Performed By: #### APTMUT, AMTHFR #### [facility] [address] [place], [place] [id number] [employer]: Melchor Rubin MD #### LUPPRO #### [address] [phone] [employer]: Temo Tipton MD [address] [place] [phone] [employer]: Morena Singh IgG0.7 GPLNormal0.0-10.0L[facility] Tripoint Medical CenterComment on above:Result Comment: Reference Range: <10.0 Negative 10.0-40.0 Equivocal >40.0 PositivePerformed By: #### RAYMONDMUT, AMTHFR #### [facility] [address] [place], [place] [address] [employer]: Melchor Rubin MD #### LUPPRO #### [address] [phone] [employer]: Temo Tipton MD [address] [place] [phone] [employer]: Christian Hanley MDHCG, Quanton 47-00-6682BGB, Xlyjv247.0 mIU/mLHigh 0-7Lakehealth Tripoint Medical CenterComment on above:Result Comment: Non-preg premeno <=5 Postmeno <=8 Male <=3 If HCG results do not concur with clinical observations, additional testing to confirm results is recommended.Performed By: #### APTMUT, AMTHFR #### [facility] [address] [place] [address] [employer]: Melchor Rubin MD #### LUPPRO #### [facility] [address] [place] [address] [employer]: Temo Tipton MD [address] [place], [place] 9[address]83 [employer]: Ainsley Singhus Anticoagulanton 75-62-7774nCMH Coag (Bld) [Time]29.5 hIfzcgh36.1-33.7L[facility] Tripoint Medical CenterComment on above:Result Comment: IV Heparin Therapy Range: 62.0-94.0Performed By: #### APTMUT, AMTHFR #### [facility] [address] [place] [address] [employer]: Melchor Rubin MD #### LUPPRO #### [address] [address] [employer]: Temo Tipton MD [address] [place], [place] [phone] [employer]: Christian Hanley MDINR Coag (PPP) [Relative time]0.9 {INR}NormalLakehealth Tripoint Medical CenterComment on above:Result Comment: Therapeutic Range: Moderate Anticoagulant Intensity: INR = 2.0-3.0 High Anticoagulant Intensity: INR = 2.5-3.5Performed By: #### APTMUT, AMTHFR #### [facility] [address] [place] [address] [employer]: Melchor Rubin MD #### LUPPRO #### [facility] [address] [place] [address] [employer]: Temo Tipton MD [address] [place] [address] [employer]: JENARO Singh Coag (PPP) [Time]12.6 rBeshkh95.0-15.0L[facility] Tripoint Medical CenterComment on above:Performed By: #### APTMUT, AMTHFR #### [facility] [address] [place] [address] [employer]: Melchor Rubin MD #### LUPPRO #### [facility] [address] [place] [address] [employer]: Temo Tipton MD [address] [place], [place] 324[address] [employer]: Eriberto Singhousjoselito 39-39-6784Pszn [id number] [facility] Medical CenterComment on above:Performed By: #### APTMUT, AMTHFR #### [facility] [address] [place] [address] [employer]: Melchor Rubin MD #### LUPPRO #### [place] [address] [place] [address] [employer]: Temo Tipton MD [address] [place] [address] [employer]: Christian Hanley MDHCG, Quanton 38-18-2524HNO, Magdd101.0 mIU/mLHigh 0-7Lakehealth Tripoint Medical CenterComment on above:Result Comment: Non-preg premeno <=5 Postmeno <=8 Male <=3 If HCG results do not concur with clinical observations, additional testing to confirm results is recommended.Performed By: #### BHCG #### [address] [place] [address] [employer]: Christian Hanley MDType + Screenon 07-07-2218Jwkx + ScreenSample Expiration 07/13/2025,4614 Arm Band Number HIDE ABO/Rh(D) O POSITIVE Antibody Screen NEGATIVENoRiverside Methodist HospitalComment on above:Performed By: #### TYS #### [address] [place] [address] [employer]: Christian Hanley, CHANDRACETAMINOPHEN LEVELon 72-43-1051Lpxxwpqnatsgo [Mass/Vol]6.4 ug/mLLow10.0-30.0[facility] Medical CenterComment on above:Order Comment: Reference ranges are for therapeutic limits.Performed By: #### SYED RAPHAEL, 1988-02, , 72039-8, 5643-2, 2157-03 #### [facility] ([id number]) [address] [place] [address] 74935AVNHUBD GLUCOSEon 82-59-2505Ahgjbag [Mass/Vol]144 mg/dLHigh 65-99[facility] CenterComment on above:Performed By: #### SYED RAPHAEL, 1988-02, , 02760-9, 43-2, 2157-03 #### [facility] ([id number]) [address] [place] [address] 10880BRB WITH AUTO DIFFERENTIALon 88-59-5303FMGQKIPBN ABSOLUTE COUNT (10*3/UL) BY AUTOMATED COUNT0.1 10*3/uLNormal0.0-0.2PDayton VA Medical Center Comment on above:Performed By: #### SYED RAPHAEL, 1988-02, , 11250-5, 5643-2, 2157-03 #### [facility] ([id number]) [address] [place] [address] 37581EQCGPSFVB RELATIVE PERCENT BY AUTOMATED COUNT0.8 %Normal [facility] CenterComment on above:Performed By: #### SYED RAPHAEL, 1988-02, , 06976-7, 5643-2, 2157-03 #### [facility] ([id number]) [address] [place] [address] 06922WUYOTITUQFA DIFFERENTIAL TYPEAUTOMATED DIFFERENTIALNormal [facility] CenterComment on above:Performed By: #### SYED RAPHAEL, 1988-02, , 60564-2, 5643-2, 2157-03 #### [facility] ([id number]) [address] [place] [address] 17767Yhtrjyshyei (Bld) [#/Vol]0.3 10*3/uLNormal0.0-0.4[facility] Medical CenterComment on above:Performed By: #### IJEOMA [facility], 1988-02, , 60999-1, 5643-2, 2157-03 #### [facility] ([id number]) [address] [place] [address] 609[address]BROODHMTQHP RELATIVE PERCENT BY AUTOMATED COUNT2.1 %Normal [facility] CenterComment on above:Performed By: #### IJEOMA [facility], 1988-02, , 30106-2, 5642-2, 2157-03 #### [facility] ([id number]) [address] [place] [address] 36509Tmfxqrceunx distribution width (RBC) [Ratio]13.8 %Yubhmu33.5-15 [facility] CenterComment on above:Performed By: #### SYED RAPHAEL, 1988-02, , 80822-6, 5642-2, 2157-03 #### [facility] ([id number]) [address] [place] [address] 32433Tijclzmfkz (Bld) [Volume fraction]37.6 %Kwbvfc19-88AkhMvjchtChi St[facility] [place], TxComment on above:Performed By: #### SYED RAPHAEL, 1988-02, , 63442-0, 5643-2, 2157-03 #### [facility] ([id number]) [address] [place] [address] 28219Kfqjhdxgrb (Bld) [Mass/Vol]12.7 g/pMYqbwtn20.7-15.5PDayton VA Medical CenterComment on above:Performed By: #### CBCA, CMP, 1988-02, , 57930-6, 5643-2, 2157-03 #### [facility] ([id number]) [address] [place] [address] 25057ZTRMMPDACPK ABSOLUTE COUNT (10*3/UL) BY AUTOMATED COUNT2.9 10*3/uLNormal1.0-3.5Pro[facility]ica Pal[facility] Verde HospitalComment on above:Performed By: #### CBCA, CMP, 1988-02, , 79396-1, 5643-2, 2157-03 #### [facility] ([id number]) [address] [place] [address] 66805UPYWNOABZEE RELATIVE PERCENT BY AUTOMATED COUNT20.2 %Normal ProMHollywood Presbyterian Medical CenterComment on above:Performed By: #### CBCA, CMP, 1988-02, , 01334-8, 43-2, 2157-03 #### [facility] ([id number]) [address] [place] [address] 10485CXQ (RBC) [Entitic mass]29.9 tuLahleh14-00DpbWzjxppChi St[facility] [place], TxComment on above:Performed By: #### CBCA, CMP, 1988-02, , 41601-6, 5642-2, 2157-03 #### [facility] ([id number]) [address] [place] [address] 07056WCNU (RBC) [Mass/Vol]33.8 g/kFEimtho92-15KgoAjtgooChi St[facility] [place], TxComment on above:Performed By: #### CBCA, CMP, 1988-02, , 04738-5, 5643-2, 2157-03 #### [facility] ([id number]) [address] [place] [address] 57130XFS (RBC) [Entitic vol]88 iSLqnohh08-198AkdIadzgn [facility] HospitalComment on above:Performed By: #### CBCA, CMP, 1988-02, , 96196-7, 5643-2, 2157-03 #### [facility] ([id number]) [address] [place] [address] 87154RVUTNZFVF ABSOLUTE COUNT (10*3/UL) BY AUTOMATED COUNT0.8 10*3/uLNormal0.0-0.9ProChi St[facility] [place], TxComment on above:Performed By: #### CBCA, CMP, 1988-02, , 14993-9, 5643-2, 2157-03 #### [facility] ([id number]) [address] [place] [address] 61680RAOMJHKVG RELATIVE PERCENT BY AUTOMATED COUNT5.3 %Normal [facility] CenterComment on above:Performed By: #### CBCA, CMP, 1988-02, , 40848-2, 5643-2, 2157-03 #### [facility] ([id number]) [address] [place] [address] 65258JNDLRHNMAQT ABSOLUTE COUNT BY AUTOMATED COUNT10.3 10*3/uLHigh 1.5-6.6ProChi St[facility] [place], TxComment on above:Performed By: #### CBCA, CMP, 1988-02, , 92653-4, 5643-2, 2157-03 #### [facility] ([id number]) [address] [place] [address] 01497WENGOSNXHAH RELATIVE PERCENT BY AUTOMATED COUNT71.6 %Normal [facility] CenterComment on above:Performed By: #### CBCA, CMP, 1988-02, , 21127-4, 5643-2, 2157-03 #### [facility] ([id number]) [address] [place] [address] 16081Aufeqisu mean volume (Bld) [Entitic vol]8.1 fLNormal7-12 [facility] CenterComment on above:Performed By: #### CBCA, CMP, 1988-02, , 52330-8, 5643-2, 2157-03 #### [facility] ([id number]) [address] [place] [address] 59834Bbhlwcmnn (Bld) [#/Vol]411 10*3/jWSjnhuf957-169FneHljgdk [facility] HospitalComment on above:Performed By: #### IJEOMA, CMP, 1988-02, , 44896-0, 5643-2, 2157-03 #### [facility] ([id number]) [address] [place] [address] 21595GNB COUNT4.25 X10E12/LNormal3.8-5.2PDayton VA Medical Center Comment on above:Performed By: #### IJEOMA, CMP, 1988-02, , 67235-9, 5643-2, 2157-03 #### [facility] ([id number]) [address] [place] [address] 605[address]YAT (Bld) [#/Vol]14.4 10*3/uLHigh4-11[facility] Comment on above:Performed By: #### CBCA, CMP, 1988-02, , 54470-9, 5643-2, 2157-03 #### [facility] ([id number]) [address] [place] [address] 26059WETWCJHKBBUVZ METABOLIC PANELon 22-33-8995Dxrbkqh [Mass/Vol]4.1 g/dLNormal3.2-5.3PDayton VA Medical CenterComment on above:Performed By: #### CBCA, CMP, 1988-02, 68927-5, 20585-4, 5643-2, 2157-03 #### [facility] ([id number]) [address] [place] [address] 04517LSN [Catalytic activity/Vol]70 U/RDckgip09-987BczLnkpmrChi St[facility] [place], TxComment on above:Performed By: #### SYED RAPHAEL, 1988-02, , 23823-6, 5643-2, 2157-03 #### [facility] ([id number]) [address] [place] [address] 10375MRS [Catalytic activity/Vol]22 U/LNormal<=31ProMedMarina Del Rey HospitalComment on above:Performed By: #### SYED RAPHAEL, 1988-02, , 20054-2, 5642-2, 2157-03 #### [facility] ([id number]) [address] [place] [address] 49920Smghf gap [Moles/Vol]10 mmol/LNormal5-15ProChi St[facility] [place], TxComment on above:Performed By: #### SYED RAPHAEL, 1988-02, , 07174-3, 43-2, 2157-03 #### [facility] ([id number]) [address] [place] [address] 57230GWV [Catalytic activity/Vol]22 U/LNormal<=41ProChi St[facility] [place], TxComment on above:Performed By: #### SYED RAPHAEL, 1988-02, , 43189-9, 5643-2, 2157-03 #### [facility] ([id number]) [address] [place] [address] 27161Fnpzrcaca [Mass/Vol]0.5 mg/dLNormal0.3-1.2PDayton VA Medical CenterComment on above:Performed By: #### SYED RAPHAEL, 1988-02, , 24088-1, 5643-2, 2157-03 #### [facility] ([id number]) [address] [place] [address], [place] [address]Lnpzlah [Mass/Vol]8.8 mg/dLNormal8.5-10.5PDayton VA Medical CenterComment on above:Performed By: #### SYED RAPHAEL, 1988-02, , 50828-9, 43-2, 2157-03 #### [facility] ([id number]) [address] [place] [address] 19755Xxgteqkh [Moles/Vol]105 mmol/DAcdtsq50-114DbjUmhpkyChi [facility] [place], TxComment on above:Performed By: #### SYED RAPHAEL, 1988-02, , 75701-3, 5642-2, 2157-03 #### [facility] ([id number]) [address] [place] [address] 71650VM3 [Moles/Vol]22 mmol/UCjbooo58-61AcbQujlayDayton VA Medical Center Comment on above:Performed By: #### SYED RAPHAEL, 1988-02, , 35568-4, 5642-2, 2157-03 #### [facility] ([id number]) [address] [place] [address] 30319Xglsmrkpni [Mass/Vol]0.86 mg/dLNormal0.40-1.00[facility] Medical CenterComment on above:Result Comment: METHOD TRACEABLE TO IDMS STANDARD Performed By: #### SYED RAPHAEL, 1988-02, , 44155-4, 5643-2, 2157-03 #### [facility] ([id number]) [address] [place] [address] 68436JGCA (CKD-EPI) NON-RACE DEPENDENT>^90Normal>=60[facility] Medical CenterComment on above:Result Comment: eGFR not reported due to non- numeric value for Creatinine. Reported eGFR is based on the CKD-EPI 2020 equation that does not use a race coefficient.Performed By: #### SYED RAPHAEL, 1988-02, , 51291- 0, 5642-2, 2157-03 #### [facility] ([id number]) [address] [place] [address] 26171Vbipyow [Mass/Vol]133 mg/dUHcmw49-22IooDwnegwChi [facility] [place] [place] Comment on above:Performed By: #### SYED RAPHAEL, 1988-02, , 17576-7, 5642-2, 2157-03 #### [facility] ([id number]) [address] [place] [address] 83148Atngknzet [Moles/Vol]4.3 mmol/LNormal3.5-5.0ProChi St[facility] [place], TxComment on above:Performed By: #### SYED RAPHAEL, 1988-02, , 60145-0, 5642-11, 2157-03 #### [facility] ([id number]) [address] [place] [address] 92587Nzdpacq [Mass/Vol]7.7 g/dLNormal6.0-8.0ProChi [facility] [place], TxComment on above:Performed By: #### SYED RAPHAEL, 1988-02, , 90478-3, 5642-11, 2157-03 #### [facility] ([id number]) [address] [place] [address] 08691Jaqfns [Moles/Vol]137 mmol/HZecqem944-634QrsAfpqab [facility] HospitalComment on above:Performed By: #### SYED RAPHAEL, 1988-02, , 76450-6, 5642-, 2157-03 #### [facility] ([id number]) [address] [place] [address] 74342Tjbb nitrogen [Mass/Vol]8 mg/dLNormal5-23ProChi [facility] [place], TxComment on above:Performed By: #### SYED RAPHAEL, 1988-02, , 48429-3, 5643-2, 2157-6 #### [facility] ([id number]) [address] [place] [address], FIRST FLOOR [place], [place] [address]OH BRAIN WO CONT STROKE ALERTon 38-66-6939OQ BRAIN WO CONT STROKE ALERTCT BRAIN WO [...] Abhishek Zhang MD on 07/04/2025 11:09 AMNormalProMedica Palo Verde HospitalCT CTA CAROTIDon 61-79-3597DN CTA CAROTIDCT CTA CAROTID History: Confusion. Headache. [...] by Abhishek Zhang MD on 07/04/2025 11:27 AMNormalOhio State University Wexner Medical CenterCT CTA HEADon 11-08-9252EJ CTA HEADCT CTA HEAD CT CTA HEAD CLINICAL INFORMATION: confusion, headache vomiting. COMPARISON: None. PROCEDURE: Routine CTA [place] was obtained after the uncomplicated intravenous administration of contrast. Sagittal and coronal reformatted images with 3-D Maximum intensity projection reconstructionsof the [place] constructed under concurrent physician supervision [...] by Rajendra Muro MD on 07/04/2025 11:25 [facility] HospitalDRUG SCREEN, URINEon 24-48-8979WAJFJNORBHH/METHAMPNegativeNormalNegative [facility] HospitalComment on above:Order Comment: Confirmation available upon request.Result Comment: AMPH/METH screening cut off = 1000 ng/mLPerformed By: #### CBCA, CMP, 1988-5, 72083-8, 44435-7, 5643-2, 2157-6 #### [facility] ([id number]) [address] [place], [place] [address]SNegativeNormalNegativeOhio State University Wex[facility] Medical Center Comment on above:Order Comment: Confirmation available upon request.Result Comment: Barbiturates screening cut off value = 200 ng/mLPerformed By: #### SYED RAPHAEL, 1988-02, 77737-5, 16474-2, 5643-2, 2156-6 #### [facility] ([id number]) [address] [place] [address] [place] [address]AGBDSGTMPFZGDELSmuzcwudWetxhlHzgvtpvsKaxRfhlne [facility] Comment on above:Order Comment: Confirmation available upon request.Result Comment: Benzodiazepines screening cut off value = 200 ng/mLPerformed By: #### SYED RAPHAEL, 1988-02, , 44594-6, 5643-2, 6 #### [facility] ([id number]) [address] [place] [address] [place] [address]98YEEXLVHZTUHYGbdryotwCwtisxrcQwxsbkssTtxTtvemp [facility] Comment on above:Order Comment: Confirmation available upon request.Result Comment: Cannabinoids/THC screening cut off value = 50 ng/mLPerformed By: #### SYED RAPHAEL, 1988-02, , 74667-0, 5643-2, 2157-03 #### [facility] ([id number]) [address] [place] [address] [place] [address]YZHDWUN METABOLITENegativeNormalNegativeOhio State University Wexner Medical CenterComment on above:Order Comment: Confirmation available upon request. Result Comment: Cocaine screening cut off value = 300 ng/mLPerformed By: #### SYED RAPHAEL, 1988-02, , 84548-4, 5643-2, 2156-6 #### [facility] ([id number]) [address] [place] [address] 04219APLDLHTVfwnmleeMoghbjEdeszbzhUzbBgukki [facility] HospitalComment on above:Order Comment: Confirmation available upon request.Result Comment: Ecstasy screening cut off value = 500 ng/mLPerformed By: #### SYED RAPHAEL, 1988-02, 13749-5, 39182-7, 5643-2, 2157-03 #### [facility] ([id number]) [address] [place] [address] 43685HMQVHICBJScknhkunAjwhwnIpgradorCwaYxchaj [facility] Comment on above:Order Comment: Confirmation available upon request.Result Comment: Methadone screening cut off value = 300 ng/mL.Performed By: #### IJEOMA, SYED, 1988-02, , 66849-9, 5643-2, 2157-03 #### [facility] ([id number]) [address] [place] [address] 23595KVKKIUWGldyspzmDmayyoIuddkisuAjcQgiomr [facility] HospitalComment on above:Order Comment: Confirmation available upon request.Result Comment: Opiates screening cut off value = 300 ng/mL This test is used for the detection of codeine, hydrocodone (>1000 ng/mL), morphine and hydromorphone (>900 ng/mL) in urine.Performed By: #### SYED RAPHAEL, 1988-02, , 09157-5, 5643-2, 2157-03 #### [facility] ([id number]) [address] [place] [address] [place] [address]UGDESUWNSVxnjkuoqTlklljQybmksnqEroAwkqyd [facility] Comment on above:Order Comment: Confirmation available upon request.Result Comment: Oxycodone screening cut off value = 300 ng/mL This test is used for the detection of oxycodone and oxymorphone in urine.Performed By: #### SYED RAPHAEL, 1988-02, , 53090-1, 5643-2, 2157-03 #### [facility] ([id number]) [address] [place] [address] [place] [address]43JVZEYVPCEXFHGHpjtnpfnPwkwhvJatgwmjoAmtGqbilp [facility] Comment on above:Order Comment: Confirmation available upon request.Result Comment: Phencyclidine screening cut off value = 25 ng/mLPerformed By: #### SYED RAPHAEL, 1988-02, , 42125-3, 5642-2, 2157-03 #### [facility] ([id number]) [address] [place] [address] 85597WOUMNCDhv 63-70-3909Tufghgz [Mass/Vol]mg/dLNormal<=0.080 [facility] HospitalComgarden city hospital on above:Result Comment: This report is intended for use in clinical monitoring or management of patients.Performed By: #### SYED RAPHAEL, 1988-02, , 55914-2, 5642-11, 2157-03 #### [facility] ([id number]) [address] [place] [address] 88939CPS-TOEV, SERUMon 86-83-4059WHE.beta subunit Vv2959 m[IU]/mLNormalProMedica Palo Verde HospitalComgarden city hospital on above:Order Comment: WEEKS (SINCE LMP) MIU/mL3 WEEKS 5 - 504 WEEKS 5 - 4265 WEEKS 18 - 7,3406 WEEKS 1,080- 56,5007-8 WEEKS 7,650 - 229,0009-12 WEEKS 25,700 - 288,34595-68 WEEKS 13,300 - 254,42948-34 WEEKS4,060 - 165,15397-07 WEEKS 3,640 - 117,000MALES AND NON- FEMALES - <5 MIU/mLThis test has been FDA approved for use inpregnancy only. Elevated levels are notnecessarily diagnostic for trophoblasticor nontrophoblastic neoplasms. Performed By: #### SYED RAPHAEL, 1988-02, , 41092-6, 5643-2, 2157-03 #### [facility] ([id number]) [address] [place] [address] 06423XFDHVMRWOX A1Con 69-93-2346Dbuonqz [Mass/Vol]94 mg/dLNormal [facility] HospitalComment on above:Performed By: #### SYED RAPHAEL, 1988-02, , 84893-1, 5643-2, 2157-03 #### [facility] ([id number]) [address] [place] [address] 52128VuJ3e (Bld) [Mass fraction]4.9 %Normal4.4-5.6ProChi St. [facility] [place], TxComment on above:Result Comment: ADA Guidelines Result HgbA1c Normal : less than 5.7 % Prediabetes : 5.7 % to 6.4 % Diabetes : > 6.4 % Use with caution in patients with abnormal hemoglobin variants as the half-life of red blood cells and in vivo glycation rates are affected.Performed By: #### SYED RAPHAEL, 1988-02, , 50257-5, 56-2, 2157-03 #### [facility] ([id number]) [address] [place] [address] 66773AHDESNLPHaf 68-15-2010Fjtmpaspz [Mass/Vol]2.3 mg/dLNormal 1.8-2.6Ohio [facility] University Wexner Medical CenterComment on above:Performed By: #### SYED RAPHAEL, 1988-02, , 81505-3, 5643-2, 2157-03 #### [facility] ([id number]) [address] [place] [address] 07829JSAD NURSING URINE MACROSCOPIC UAon 49-81-5757NZVLVIFEY KRISTA NegativeNormalNegativeProChi St. [facility] [place], TxComment on above:Performed By: #### SYED RAPHAEL, 1988-02, , 39125-6, 5643-2, 2157-03 #### [facility] ([id number]) [address] [place] [address] 73052DNRWO/HGB NURNegativeNormalNegGreene Memorial Hospital Comment on above:Performed By: #### IJEOMA, CMP, 1988-02, , 13980-4, 5643-2, 2157-03 #### [facility] ([id number]) [address] [place] [address] [place] [address]NJYAHJO NURNegativeNormalNegativeOhio State University Wexner Medical Center Comment on above:Performed By: #### IJEOMA, CMP, 1988-02, , 07095-9, 5643-2, 2157-03 #### [facility] ([id number]) [address] [place] [address] [place] [address]UCDKUKP NURNegativeNormalNegGreene Memorial Hospital Comment on above:Performed By: #### IJEOMA, CMP, 1988-02, , 59812-1, 5643-2, 2157-03 #### [facility] ([id number]) [address] [place] [address] [place] 86807PCVFATJCC ESTERASE NURNegativeJefferson Memorial HospitalalNegGreene Memorial HospitalComment on above:Performed By: #### IJEOMA, CMP, 1988-02, , 18908-1, 5643-2, 2157-03 #### [facility] ([id number]) [address] [place] [address] [place] [address]28[address]AEAUTFP NURNegativeNormalNegativeOhio State University [facility] Medical Center Comment on above:Performed By: #### ANISHA, CMP, 1988-02, , 00764-1, 5643-2, 2157-03 #### [facility] ([id number]) [address] [place] [address] [place] 15662WE NUR7.8Nyjfub5.0, 6.0, 6.5, 7.0, 7.5, 8.0, 8.5, 5.5Pro[facility] HospitalComment on above:Performed By: #### SYED RAPHAEL, 1988-02, , 48608-7, 5643-2, 2157-03 #### [facility] ([id number]) [address] [place] [address] 10724JYBTALW NUR30 mg/dLAbnormalNegativeOhio State University Wexner Medical Center Comment on above:Performed By: #### SYED RAPHAEL, 1988-02, , 03267-3, 5642-2, 2157-03 #### [facility] ([id number]) [address] [place] [address] 03674QZOCMHSA GRAVITY NUR1.587Tbirwx5.010, 1.015, 1.020, 1.025 [facility] HospitalComment on above:Performed By: #### IJEOMA [facility], 1988-02, , 84125-3, 5642-2, 2157-03 #### [facility] ([id number]) [address] [place] [address] 53229OGFWZVEKNRRM NUR0.2 E.U./dLNormalOhio State University Wexner Medical Center Comment on above:Performed By: #### SYED RAPHAEL, 1988-02, , 40244-7, 2, 2157-03 #### [facility] ([id number]) [address] [place] [address] 55805JZEW , URINE (NUCG)on 82-88-5456Rvkl HCG ( test) Ql (U)PositiveAbnormalNegative, IndeterminateOhio State University Wexner Medical Center Comment on above:Performed By: #### SYED RAPHAEL, 1988-02, , 55969-2, 5643-2, 2157-03 #### [facility] ([id number]) [address] [place] [address] 77359FSXFZREKCH LEVELon 15-71-4473TOBTSHIYKP<^4.6Egjbsv2.0-25.0 [facility] HospitalComment on above:Order Comment: Reference ranges are for therapeutic limits.Performed By: #### SYED RAPHAEL, 1988-02, , 61469-5, 5643-2, 2157-03 #### [facility] ([id number]) [address] [place] [address] 62662PPKY I, HIGH SENSITIVITY 1 HOURon 11-14-1416GHRNBLAG I, HIGH SENSITIVITY2 ng/LNormal<16[facility]xner Medical CenterComment on above:Performed By: #### SYED RAPHAEL, 1988-02, , 37051-0, 56-2, 2157-03 #### [facility] ([id number]) [address] [place] [address] 91079KNMFOHLB I, HIGH SENSITIVITY 0 HOURon 06-47-7815HKQWLTFW I, HIGH SENSITIVITY<^2Normal<16[facility] Medical CenterComment on above:Performed By: #### SYED RAPHAEL, 1988-02, , 83956-0, 56-2, 2157-03 #### [facility] ([id number]) [address] [place] [address], [place] [address]LSJDU CULTUREon 72-49-5631Vfgnfcud identified Cx Nom (U)CULTURE RESULTS <10,000 ORGANISMS/mL NORMAL URO GENITAL FLORANormalOhio State University Wexner Medical Center Comment on above:Performed By: #### SYED RAPHAEL, 1988-02, , 94073-4, 5642-2, 2157-03 #### [facility] ([id number]) [address] [place] [address] 52448ID PREG LESS THAN 14 WKS WITH TRANSVAGINALon 41-51-0777KH PREG LESS THAN 14 WKS WITH TRANSVAGINALUS [...] Trimester. N Engl J Med. 2013 Jul 10;369(15):1443-50. Finalized by Subhash Hollis MD on 07/04/2025 1:02 [facility] HospitalUrine Cultureon 20-62-6887Modmguuz identified Cx Nom (U)>100,000 colonies/ml mixed bacterial skin contaminants 2 Days PERFORMED BY: [address] [address] PATHOLOGIST LOAN ADMINISTRATOR JOSE PAULINO M.D.[facility]aches Physician GroupComment on above: Performed By: #### CUU #### [address] [address] USAED Clinical Summaryon 12-67-5790OH Clinical Summary [address] [address] ED Clinical Summary Person Information Name: Yolanda Villanueva [facility] Age: 25 Years : 2000 Sex: Female PCP: Marital Status: Phone: Race: Ethnicity: Language: Barbadian Visit Reason: Hematuria; vomiting blood Acuity: 3 [...] Follow up: Discharge Orders: Patient Education Information: [facility] Poison Help line: . [facility] Hotline: [place] Tobacco Quit Line: [place], [place]) [address]: [phone] [place], [place]) [address]: [phone] [facility] [address] [place], [place]: [phone] White HospitalCBC with Auto Differentialon 19-71-4300Esggxhclm (Bld) [#/Vol]0.07 10*3/uLBon Secours Mercy HealthBasophils/100 WBC (Bld)0 %0 - 2 %[facility] HealthEosinophils (Bld) [#/Vol][facility] Eosinophils/100 WBC (Bld)0 %Low1 - 4 %[facility] Mercy HealthErythrocyte distribution width (RBC) [Ratio]13.2 %11.8 - 14.4 %[facility] Hematocrit (Bld) [Volume fraction]36.3 %36.3 - 47.1 %[facility] Hemoglobin (Bld) [Mass/Vol]12.4 g/dL11.9 - 15.1 g/dLBon [facility] Immature granulocytes (Bld) [#/Vol]0.13 10*3/uLBon [facility] HospitalImmature granulocytes/100 WBC (Bld)1 %Lckf5VnlStafford HospitalInterpretation and review of laboratory resultsAbnormalBon [facility] HospitalLymphocytes/100 WBC (Bld)9 %Low24 - 43 %[facility] HospitalLymphocytes/100 WBC (Bld)1.61 %[facility] CampusH (RBC) [Entitic mass]30.4 pg25.2 - 33.5 pgHenrico Doctors' Hospital—Parham CampusHC (RBC) [Mass/Vol]34.2 g/dL28.4 - 34.8 g/dLBon [facility] HospitalMCV (RBC) [Entitic vol]89.0 fL82.6 - 102.9 fLStafford Hospital Monocytes/100 WBC (Bld)3 %3 - 12 %[facility] HospitalMonocytes/100 WBC (Bld)0.59 %[facility] HospitalNeutrophils/100 WBC (Bld)87 %High36 - 65 %[facility] HospitalNucleated RBC/100 WBC (Bld) [Ratio]0.0 %0.0 per 100 WBCStafford HospitalPlatelet mean volume (Bld) [Entitic vol]9.6 fL8.1 - 13.5 fL [facility] HospitalPlatelets (Bld) [#/Vol]431 10*3/uLBon [facility] HospitalRBC (Bld) [#/Vol]4.08 10*6/uL3.95 - 5.11 m/uLStafford Hospital Segmented neutrophils/100 WBC (Bld)15.72 %[facility] HospitalWBC other (Bld) [#/Vol]18.1HighSentara Northern Virginia Medical CenterCBC with Diffon 06-72-5017Yio. Basophil0.07 k/uLNormal0.00-0.20[facility] Comment on above:Performed By: #### CDP, CP #### [address] [address] [employer]: Juana Singh. Eosinophil<0.04Ciiqsr9.00-0.44MerParkview Health HospitalComment on above:Performed By: #### CDP, CP #### [address] [place], [place] [address] [employer]: MDAbs. FranciscoImm.Granulocyte0.13 k/uLNormal0.00-0.30[facility] HospitalComment on above:Performed By: #### CDP, CP #### [address] [place], [place] [address] [employer]: Juana Singh.Neutrophil (Seg)15.72 k/uLHigh1.50-8.10[facility] HospitalComment on above:Performed By: #### CDP, CP #### [address] [place], [place] [address] [employer]: Christian Hanley MDBasophils/100 WBC (Bld)0 %Normal0-2[facility] HospitalComment on above:Performed By: #### CDP, CP #### [address] [place], [place] [address] [employer]: Christian Hanley MDEosinophils/100 WBC (Bld)0 %Low1-4[facility] HospitalComment on above:Performed By: #### CDP, CP #### [address] [place], [facility]83 [employer]: Christian Hanley MDErythrocyte distribution width (RBC) [Ratio]13.2 % Klecsa66.8-14.4[facility] Medical CenterComment on above:Performed By: #### CDP, CP #### [address] [place] [address] [employer]: Christian Hanley MDHematocrit (Bld) [Volume fraction]36.3 %Normal 36.3-47.1MBluffton Hospital HospitalComment on above:Performed By: #### CDP, CP #### [address] [place], [facility]83 [employer]: Christian Hanley MDHemoglobin (Bld) [Mass/Vol]12.4 g/dLNormal 11.9-15.1MBluffton Hospital HospitalComment on above:Performed By: #### CDP, CP #### [address] [place], [facility]83 [employer]: Jessy Singhmature granulocytes/100 WBC (Bld)1 %Dsoc2ZjfkbBluffton Hospital HospitalComment on above:Performed By: #### CDP, CP #### [address] [place], [place] [id number] [employer]: Frank Singhmphocytes (Bld) [#/Vol]1.61 10*3/uLNormal 1.10-3.70[facility] Medical CenterComment on above:Performed By: #### CDP, CP #### [address] [place], [facility]83 [employer]: Frank Singhmphocytes/100 WBC (Bld)9 %Zkm40-79AuizcLakehealth Tripoint Medical CenterComment on above:Performed By: #### CDP, CP #### [address] [place], [place] 1094383 [employer]: JOSÉ LUIS SinghCH (RBC) [Entitic mass]30.4 vtHwpbhd15.2-33.5 [facility] HospitalComment on above:Performed By: #### CDP, CP #### [address] [place] [address] [employer]: JOSÉ LUIS SinghCHC (RBC) [Mass/Vol]34.2 g/mCPcdtsg03.4-34.8[facility] Medical CenterComment on above:Performed By: #### CDP, CP #### [address] [place], [place] 1803483 [employer]: JOSÉ LUIS SinghCV (RBC) [Entitic vol]89.0 dCVrzxxf91.6-102.9 [facility] CenterComment on above:Performed By: #### CDP, CP #### [address] [place], [place] 9445283 [employer]: JOSÉ LUIS Singhonocytes (Bld) [#/Vol]0.59 10*3/uLNormal0.10-1.20 [facility] CenterComment on above:Performed By: #### CDP, CP #### [address] [place], [place] 9139483 [employer]: JOSÉ LUIS Singhonocytes/100 WBC (Bld)3 %Normal3-12[facility] Medical CenterComment on above:Performed By: #### CDP, CP #### [address] [place], [place] 3106283 [employer]: Christian Hanley MDNeutrophil (Seg)87 %Lesh35-16PjqdsLakehealth Tripoint Medical Center Comment on above:Performed By: #### CDP, CP #### [address] [place], [place] 6928183 [employer]: Christian Hanley MDNRBC Automated0.0 per 100 WBCNormal0.0[facility] Medical CenterComment on above:Performed By: #### CDP, CP #### [address] [place], [facility]83 [employer]: Benton Singh mean volume (Bld) [Entitic vol]9.6 fL Normal8.1-13.5[facility] HospitalComment on above:Performed By: #### CDP, CP #### [address] [place] [address] [employer]: Elvis Singh (Bld) [#/Vol]431 10*3/mGPjqrjs728-635 [facility] HospitalComment on above:Performed By: #### CDP, CP #### [address] [place] [address] [employer]: SAM SinghBC (Bld) [#/Vol]4.08 10*6/uLNormal3.95-5.11[facility] HospitalComment on above:Performed By: #### CDP, CP #### [address] [place], [place] 5446483 [employer]: NEY SinghBC (Bld) [#/Vol]18.1 10*3/uLHigh3.5-11.3[facility] HospitalComment on above:Performed By: #### CDP, CP #### [address] [place] [address] [employer]: JESSICA Singhomp Metabolic Profon 83-54-8564Medkkue [Mass/Vol] 4.9 g/dLNormal3.5-5.2[facility] HospitalComment on above:Performed By: #### CDP, CP #### [address] [place], [place] [address]3 [employer]: Christian Hanley MDAlbumin/Glob Ratio1.2Gtpdpg4.0-2.5MerParkview Health HospitalComment on above:Performed By: #### CDP, CP #### [address] [place] [address] [employer]: Colt Singh Phos83 U/KNrkdkz75-555QdwmmLakehealth Tripoint Medical CenterComment on above:Performed By: #### CDP, CP #### [address] [place] [address] [employer]: Christian Hanley MDALT [Catalytic activity/Vol]16 U/FZaybzm11-05Nfxlr [facility] HospitalComment on above:Performed By: #### CDP, CP #### [address] [place] [address] [employer]: Inez Singh gap [Moles/Vol]18 mmol/LHigh9-16MerParkview Health HospitalComment on above:Performed By: #### CDP, CP #### [address] [place] [address] [employer]: Christian Hanley MDAST [Catalytic activity/Vol]22 U/WXyuxpc06-84CfyfrLakehealth Tripoint Medical CenterComment on above:Performed By: #### CDP, CP #### [address] [place] [address] [employer]: Christian Hanley MDBilirubin [Mass/Vol]0.5 mg/dLNormal0.00-1.20MerParkview Health HospitalComment on above:Performed By: #### CDP, CP #### [address] [place] [address] [employer]: Christian Hanley MDBUN/CRE Lcabo3Kor8-17Ixrlk [facility] HospitalComment on above:Performed By: #### CDP, CP #### [address] [place] [address] [employer]: JESSICA Singhalcium [Mass/Vol]9.7 mg/dLNormal8.6-10.4MerParkview Health HospitalComment on above:Performed By: #### CDP, CP #### [address] [place] [address] [employer]: JESSICA Singhhloride [Moles/Vol]101 mmol/GGaiclu58-723ZlztfLakehealth Tripoint Medical CenterComment on above:Performed By: #### CDP, CP #### [address] [place] [address] [employer]: Christian Hanley MDCO2 [Moles/Vol]21 mmol/HXzmojf56-84LhougLakehealth Tripoint Medical CenterComment on above:Performed By: #### CDP, CP #### [address] [place] [address] [employer]: JESSICA Singhreatinine [Mass/Vol]0.9 mg/dLNormal0.50-0.90[facility] Medical CenterComment on above:Performed By: #### CDP, CP #### [address] [place], [place] 3155483 [employer]: Christian Hanley MDGFR/1.73 sq M.predicted among non-blacks MDRD (S/P/Bld) [Vol rate/Area]mL/min/{1.73_m2}Normal>60[facility] Medical CenterComment on above:Result Comment: These results [...] tubular secretion.Performed By: #### CDP, CP #### [address] [place], [place] [address]83 [employer]: Christian Hanley MDGlucose [Mass/Vol]152 mg/gINlrr36-63Iqzlv Bethany HospitalComment on above:Performed By: #### CDP, CP #### [address] [place] [address] [employer]: AWILDA Singhotassium [Moles/Vol]3.8 mmol/LNormal3.7-5.3Mercy Bethany HospitalComment on above:Result Comment: Specimen hemolysis has exceeded the interference as defined by Macy. Value may be falsely increased. Suggest recollection if clinically indicated.Performed By: #### CDP, CP #### [address] [place], [place] [id number] [employer]: Christian Hanley MDProtein [Mass/Vol]8.4 g/dLNormal6.6-8.7MerThe Hospital of Central ConnecticutComment on above:Performed By: #### CDP, CP #### [address] [place], [facility]83 [employer]: FREYA Singhodium [Moles/Vol]140 mmol/[id number] Tiffin HospitalComment on above:Performed By: #### CDP, CP #### [address] [place], [place] [id number] [employer]: Christian Hanley MDUrea nitrogen [Mass/Vol]7 mg/dLNormal6-20MerThe Hospital of Central ConnecticutComment on above:Performed By: #### CDP, CP #### [address] [place], [place] [address]83 [employer]: JESSICA Singhomprehensive Metabolic Panelon [id number] [Mass/Vol]4.9 g/dL3.5 - 5.2 g/dLBon [facility] HospitalAlbumin/Globulin [Mass ratio]1.4 {ratio}1.0 - 2.5Bon [facility] HospitalALP [Catalytic activity/Vol]83 U/L35 - 104 U/LBon [facility] HospitalALT [Catalytic activity/Vol]16 U/L10 - 35 U/LBon [facility] HospitalAnion gap [Moles/Vol]18 mmol/LHigh9 - 16 mmol/LBon SecAvita Health System Galion HospitalAST [Catalytic activity/Vol]22 U/L10 - 35 U/LBon SecAvita Health System Galion HospitalBilirubin [Mass/Vol]0.5 mg/dL0.00 - 1.20 mg/dLBon [facility] HospitalCalcium [Mass/Vol]9.7 mg/dL8.6 - 10.4 mg/dLBon [facility] Chloride [Moles/Vol]101 mmol/L98 - 107 mmol/LBon [facility] HospitalCO2 [Moles/Vol]21 mmol/L20 - 31 mmol/LBon [facility] HospitalCreatinine [Mass/Vol] 0.9 mg/dL0.50 - 0.90 mg/dLBon [facility] HospitalEst, Glom Filt Rate- PINFBon [facility] HospitalComment on above: These results are [...] that affects renal tubular secretion. Glucose [Mass/Vol]152 mg/iIMbrb74 - 99 mg/dLBon [facility] Interpretation and review of laboratory resultsAbnormalStafford Hospital Potassium [Moles/Vol]3.8 mmol/L3.7 - 5.3 mmol/LBon [facility] HospitalComment on above:Specimen hemolysis has exceeded the interference as defined by Macy. Value may be falsely increased. Suggest recollection if clinically indicated. Protein [Mass/Vol]8.4 g/dL6.6 - 8.7 g/dLBon [facility] HospitalSodium [Moles/Vol]140 mmol/L136 - 145 mmol/LBon [facility] HospitalUrea nitrogen [Mass/Vol]7 mg/dL6 - 20 mg/dLBon [facility] HospitalUrea nitrogen/Creatinine [Mass ratio]8 mg/mgLow9 - 20Bon [facility] HospitalDrug Scr, Abuse, Uron [id number](s),UrPositiveAbnormalNEGMercy Bethany HospitalComment on above:Result Comment: Cutoff: 50 ng/mlPerformed By: #### APTMUT, AMTHFR #### [facility] [address] [place] [address] [employer]: Melchor Rubin MD #### LUPPRO #### [address] [address] [employer]: Temo Tipton MD [address] [place], [place] [address] [employer]: Marline Singhtamine(s),UrNegativeNormalNEGMercy Gaylord HospitalComgarden city hospital on above:Result Comment: Cutoff: 1000 ng/mLPerformed By: #### APTMUT, AMTHFR #### [facility] [address] [place] [address] [employer]: Melchor Rubin MD #### LUPPRO #### [address] [address] [employer]: Temo Tipton MD [address] [place], [place] [address] [employer]: Christian Hanley MDBarbiturate(s),UrNegativeNormalNEGMercy Bethany HospitalComgarden city hospital on above:Result Comment: Cutoff: 200 ng/mlPerformed By: #### APTMUT, AMTHFR #### [facility] [address] [place] [address] [employer]: Melchor Rubin MD #### LUPPRO #### [address] [address] [employer]: Temo Tipton MD [address] [place], [place] 14[address] [employer]: Christian Hanley MDBenzodiazepine(s)NegativeNormalNEGMercy Bethany HospitalComment on above:Result Comment: Cutoff: 200 ng/mlPerformed By: #### APTMUT, AMTHFR #### [facility] [address] [place] [address] [employer]: Melchor Rubin MD #### LUPPRO #### [facility] [address] [place] [address] [employer]: Temo Tipton MD [address] [place], [place] 5357[address] [employer]: JESSICA Singhocaine MetaboliteNegativeNormalNEGLakehealth Tripoint Medical CenterComgarden city hospital on above:Result Comment: Cutoff: 300 ng/mlPerformed By: #### APTMUT, AMTHFR #### [facility] [address] [place] [address] [employer]: Melchor Rubin MD #### LUPPRO #### [address] [address] [employer]: Temo Tipton MD [address] [place] [address] [employer]: Christian Hanley MDFentanyl, UrineNegativeNormalNEGLakehealth Tripoint Medical CenterComgarden city hospital on above:Result Comment: Cutoff: 5 ng/mlPerformed By: #### APTMUT, AMTHFR #### [facility] [address] [place] [address] [employer]: Melchor Rubin MD #### LUPPRO #### [facility] [address] [place] [address] [employer]: Temo Tipton MD [address] [place] [address] [employer]: Christian Hanley MDInterpretive InfoThis method is a screening test to detect only these drug classes as part of aNormalLakehealth Tripoint Medical CenterComgarden city hospital on above:Result Comment: medical workup. Confirmatory testing by another method should be ordered if clinically indicated.Performed By: #### APTMUT, AMTHFR #### [facility] [address] [place] [address] [employer]: Melchor Rubin MD #### LUPPRO #### [facility] [address] [place] [address] [employer]: Temo Tipton MD [address] [place], [place] 1569[address] [employer]: JOSÉ LUIS Singhethadone Ql (U)NegativeNormalNEGMercy Bethany HospitalComment on above:Result Comment: Cutoff: 300 ng/mlPerformed By: #### APTMUT, AMTHFR #### [facility] [address] [place] [address] [employer]: Melchor Rubin MD #### LUPPRO #### [address] [address] [employer]: Temo Tipton MD [address] [place] [address] [employer]: Christian Hanley MDOpiate(s), UrNegativeNormalNEGMerParkview Health HospitalComment on above:Result Comment: Cutoff: 300 ng/ml Note: The Opiate screen is not intended to detect Oxycodone.Performed By: #### APTMUT, AMTHFR #### [facility] [address] [place] [address] [employer]: Melchor Rubin MD #### LUPPRO #### [facility] [address] [place] [address] [employer]: Temo Tipton MD [address] [place] [address] [employer]: Christian Hanley MDOxycodone, UrineNegativeNormalNEGMercy Bethany HospitalComment on above:Result Comment: Cutoff: 100 ng/mlPerformed By: #### APTMUT, AMTHFR #### [facility] [address] [place] [address] [employer]: Melchor Rubin MD #### LUPPRO #### [address] [address] [employer]: Temo Tipton MD [address] [place] [phone] [employer]: Rey Singhcyclidine, UrNegativeNormalNEGMerThe Hospital of Central ConnecticutComment on above:Result Comment: Cutoff: 25 ng/mlPerformed By: #### APTMUT, AMTHFR #### [facility] [address] [place] [address] [employer]: Melchor Rubin MD #### LUPPRO #### [address] [phone] [employer]: Temo Tipton MD [address] [place] [phone] [employer]: Christian Hanley MDHCG, Quanton 62-61-1115INM, Wlbwh417.0 mIU/mLHigh 0-7L[facility]health Tripoint Medical CenterComgarden city hospital on above:Result Comment: Non-preg premeno <=5 Postmeno <=8 Male <=3 If HCG results do not concur with clinical observations, additional testing to confirm results is recommended.Performed By: #### APTMUT, AMTHFR #### [facility] [address] [place] [address] [employer]: Melchor Rubin MD #### LUPPRO #### [address] [phone] [employer]: Temo Tipton MD [address] [place], [place] [phone] [employer]: Christian Hanley MDHCG, Quantitative, Pregnancyon 35-27-4640TPA.beta subunit Qn202.0 m[IU]/mLHighStafford HospitalComment on above: Non-preg premeno <=5 Postmeno <=8 Male <=3 If HCG results do not concur with clinical observations, additional testing to confirm results is recommended. Interpretation and review of laboratory resultsAbnormalBon [facility] Bon [facility] HospitalLactic Acidon 58-87-6467Dxrjqiw (BldV) [Moles/Vol]1.6 mmol/L0.5 - 2.2 mmol/LBon [facility] HospitalLactate [Moles/Vol]1.6 mmol/L Normal0.5-2.2Mercy Gaylord HospitalComment on above:Performed By: #### APTMUT, AMTHFR #### [facility] [address] [place] [address] [employer]: Melchor Rubin MD #### LUPPRO #### [facility] [address] [place], [place] [address] [employer]: Temo Tipton MD [facility] [address] [place] [address] [employer]: Christian Hanley MDNo Panel Informationon 98-52-9717Ivz [facility] HospitalUS OB TRANSVAGINALon 63-58-8362PN OB TRANSVAGINALEXAMINATION: FIRST TRIMESTER OBSTETRIC ULTRASOUND 06/20/2025 [...] Sac: Not definitively identified. Embryo(<11wk) /Fetus(>=11wk): Single [place] Rump Length: Not visualized. Rate of Cardiac [...] Jean Paul Carranza MD Signed by: Jean Palu Carranza MD 06/20/25 Final resultNormalMercy Paulina Meyers is a 2 mm intrauterine cystic structure which may represent very early intrauterine gestation. The internal contents including the yolk sac, embryo and cardiac activity are not visualized at this time. Continue follow-up study and correlation with beta HCG level recommended. [facility]ATEDEX[facility] FIRST TRIMESTER OBSTETRIC ULTRASOUND 06/20/2025 TECHNIQUE: [...] Sac: Not definitively identified. Embryo(<11wk) /Fetus(>=11wk): Single [place] Rump Length: Not visualized. Rate of Cardiac Activity not visualized. Right ovary: 4.1 x 3.1 x 2.2 cm. Left ovary: 3.5 x 3.7 x 3.1 cm. Free fluid: No significant free fluid. Measurements: Estimated gestational age by current ultrasound: Too early to determine. Estimated gestational age by LMP/prior ultrasound: Too early to determine. Estimated Due Date: Too early to determine. [facility] Jean Paul Felipe MD - 06/20/2025 [...] Sac: Not definitively identified. Embryo(<11wk) /Fetus(>=11wk): Single [place] Rump Length: Not visualized. Rate of Cardiac [...] and correlation with beta HCG level recommended. [facility] Centeriology [facility] observation (narrative)Stafford HospitalUS OB TRANSVAGINALOrdered By: Jean Paul Carranza on 14-34-1152Ylp [facility] Work Phone: Urinalysis w/ Microon [id number] NONELakehealth Tripoint Medical CenterComment on above:Performed By: #### UAMIC #### [facility] [address] [place] [address] [place] [address] [employer]: Rebecca Singhirubin, SemiQt,UrNegativeNormalNEGLakehealth Tripoint Medical CenterComment on above:Performed By: #### UAMIC #### [facility] [address] [place] [address] [place] [address] [employer]: Bessy Singh, UrineNegativeNormalMercy Health Comment on above:Performed By: #### UAMIC #### [address] [place] [address] [employer]: Bryan Singh TO 2NormalLakehealth Tripoint Medical CenterComment on above:Result Comment: HYALINEPerformed By: #### UAMIC #### [address] [place], [place] [address]83 [employer]: JESSICA Singhlarity (U)ClearNormalCLEARLakehealth Tripoint Medical Center Comment on above:Performed By: #### UAMIC #### [facility] [address] [place] [address] Dr. [place], [place] [phone] [employer]: JESSICA Singholor (U)YellowNormalYMount Carmel Health System Comment on above:Performed By: #### UAMIC #### [facility] [address] [place] [address] Dr. [place], [place] [phone] [employer]: Christian Hanley MDEpithelial cells LM Ql (Urine sed)2 TO 1Mmkiji3-11 [facility] Medical CenterComment on above:Performed By: #### UAMIC #### [address] [place], [place] [address]655[address] [employer]: Christian Hanley MDGlucose Ql (U)NegativeNormalNEGBluffton Hospital HospitalComment on above:Performed By: #### UAMIC #### [facility] [address] [place] [address] Dr. [place], [place] [address] [employer]: Christian Hanley MDKetones Ql (U)2+ mg/dLAbnormalNEGBluffton Hospital HospitalComment on above:Performed By: #### UAMIC #### [facility] [address] [place] [address] Dr. [place], [place] 0[address]83 [employer]: Christian Hanley MDLeukocyte esterase Test strip Ql (U)NegativeNormal NEGLakehealth Tripoint Medical CenterComment on above:Performed By: #### UAMIC #### [facility] [address] [place] [address] [place] [address] [employer]: JOSÉ LUIS Singhucus StrandsTRACEAbnormalNONEMePanola Medical Center HospitalComment on above:Performed By: #### UAMIC #### [facility] [address] [place] [address] Dr. [place], [place] [phone] [employer]: Christian Hanley MDNitrite,UrNegativeNormalNEGLakehealth Tripoint Medical Center Comment on above:Performed By: #### UAMIC #### [facility] [address] [place] [address] [place] [address] [employer]: AWILDA Singh,Ur8.5Xgvdxz4.0-9.0Lakehealth Tripoint Medical CenterComment on above:Performed By: #### UAMIC #### [facility] [address] [place] [address] [employer]: AWILDA Singhrotein Ql (U)1+ mg/dLAbnormalNEGLakehealth Tripoint Medical CenterComment on above:Performed By: #### UAMIC #### [facility] [address] [place] [address] [place] [address] [employer]: Luis Carlos Singh. Adel,Ur1.668Iyhqbm0.010-1.020Lakehealth Tripoint Medical CenterComment on above:Performed By: #### UAMIC #### [facility] [address] [place] [address] Dr. [place], [place] [address] [employer]: Louann Singh RBC's0 TO 4Pzlffd2-9QlahkSt. Vincent Hospital Comment on above:Performed By: #### UAMIC #### [facility] [address] [place] [address] Dr. [place], [place] [address] [employer]: Louann Singh WBC's0 TO 7Ecjgri6-1ElwyuLakehealth Tripoint Medical Center Comment on above:Performed By: #### UAMIC #### [facility] [address] [place] [address] [employer]: Ele Singhbilinogen,UrNormalNormal0.0-1.0Lakehealth Tripoint Medical CenterComment on above:Performed By: #### UAMIC #### [facility] [address] [place] [address] [place] [address] [employer]: Christian Hanley MDUrinalysis with Microscopicon 71-39-2802Hyvigiqu LM Ql (Urine sed)TRACEAbnormalNoneBon Secours Mercy HealthBilirubin [...] Mercy HealthBon Secours Mercy HealthUrine Drug Screenon 47-76-3135Pncagzvbdrqt Ql (U)NegativeNEGATIVEBon Secours Mercy HealthComment on above:Cutoff: [...] should be ordered if clinically indicated.Bon Secabdoulaye [facility] & Brentwood Hospitaly HealthBon Secours [facility] & Brent[facility] Hospitaly HealthBASIC METABOLIC PANELon 24-63-2206Btnnh gap [Moles/Vol]9 mmol/LNormal-ProMedica Palo Verde HospitalComment on above: Performed By: #### SYED RAPHAEL, 1988-02, , 11484-4, 5643-2, 2157-03 #### [facility] ([id number]) [address] [place] [address]Iqezukh [Mass/Vol]10.0 mg/dLNormal8.5-10.5ProMedica Palo Verde HospitalComment on above:Performed By: #### SYED RAPHAEL, 1988-02, , 19046-0, 5643-2, 2157-03 #### [facility] ([id number]) [address] [place] [address]Wfdszbeo [Moles/Vol]99 mmol/FKmqhfz09-927MtlVdjgvvOhio State University Wexner Medical CenterComment on above:Performed By: #### SYED RAPHAEL, 1988-02, , 69698-9, 5643-2, 2157-03 #### [facility] ([id number]) [address] [place] [address]VV7 [Moles/Vol]29 mmol/DGvmqpy83-41EobRubjpcDayton VA Medical Center Comment on above:Performed By: #### SYED RAPHAEL, 1988-02, , 48975-7, 5643-2, 2157-03 #### [facility] ([id number]) [address] [place] [address]Cowbufchwb [Mass/Vol]0.83 mg/dLNormal0.40-1.00Ohio [facility] Wexner Medical CenterComment on above:Result Comment: METHOD TRACEABLE TO IDMS STANDARD Performed By: #### SYED RAPHAEL, 1988-02, , 63391-4, 5642-2, 2157-03 #### [facility] ([id number]) [address] [place] [address]OPIQ (CKD-EPI) NON-RACE DEPENDENT>^90Normal>=60Ohio [facility] University Wexner Medical CenterComment on above:Result Comment: Reported eGFR is based on the CKD-EPI 2020 equation that does not use a race coefficient.Performed By: #### SYED RAPHAEL, 1988-02, , [address]- 0, 5643-2, 2157-03 #### [facility] ([id number]) [address] [place] [address]Sgvnjry [Mass/Vol]77 mg/iGIrrgte70-47OtzHvwlkhOhio State University Wexner Medical Center Comment on above:Performed By: #### SYED RAPHAEL, 1988-02, , 18951-2, 5643-2, 2157-03 #### [facility] ([id number]) [address] [place] [address]Csnqvwjnx [Moles/Vol]4.6 mmol/LNormal3.5-5.0ProChi St. [facility] – [place], TxComment on above:Performed By: #### SYED RAPHAEL, 1988-02, , 94142-6, 5643-2, 2157-03 #### [facility] ([id number]) [address] [place] [address]Vfggmq [Moles/Vol]137 mmol/BNtclqh247-478OoyZyiarx Fremont HospitalComment on above:Performed By: #### IJEOMA [facility], 1988-02, , 70855-9, 2, 2157-03 #### [facility] ([id number]) [address] [place] [address]Mspa nitrogen [Mass/Vol]11 mg/dLNormal5-23ProChi St. [facility] [place], TxComment on above:Performed By: #### SYED RAPHAEL, 1988-02, , 05761-1, 5642-2, 2157-03 #### [facility] ([id number]) [address] [place] [address]Yaipz Metabolic Panelon 51-25-1073Oqkba gap [Moles/Vol]18 mmol/LHigh9 - 16 mmol/LBon Secours Mercy HealthCalcium [Mass/Vol]10.0 mg/dL8.6 - 10.4 mg/dLBon Secours Mercy HealthChloride [Moles/Vol]97 mmol/LLow98 - 107 mmol/LBon Secours Mercy HealthCO2 [Moles/Vol]23 mmol/L20 - 31 mmol/LBon Secours Mercy HealthCreatinine [Mass/Vol]1.2 mg/dLHigh0.50 - 0.90 mg/dLBon Secours Mercy HealthEst, Glom Filt Rate67- PINFBon Secours [facility] Hospital & Brentwood Hospitaly HealthComment on above: These results are not [...] that affects renal tubular secretion. Glucose [Mass/Vol]141 mg/dAFrvj19 - 99 mg/dLBon [facility] Interpretation and review of laboratory resultsAbnormalStafford Hospital Potassium [Moles/Vol]3.3 mmol/LLow3.7 - 5.3 mmol/LBon [facility] HospitalSodium [Moles/Vol]138 mmol/L136 - 145 mmol/LBon [facility] HospitalUrea nitrogen [Mass/Vol]16 mg/dL6 - 20 mg/dLBon [facility] HospitalUrea nitrogen/Creatinine [Mass ratio]13 mg/mg9 - 20Bon [facility] Hospital-Sioux FallsBasic Metabolic Profon 49-53-0284Qdvac gap [Moles/Vol]18 mmol/LHigh9-16L[facility] Medical CenterComment on above:Performed By: #### APTMUT, AMTHFR #### [facility] [address] [place], [place] 504[address] [employer]: Melchor Rubin MD #### LUPPRO #### [address] [address] [employer]: Temo Tipton MD [address] [place] [address] [employer]: Christian Hanley MDBUN/CRE Lrlem35Xkmdvu0-36Wbcko[address] Comment on above:Performed By: #### APTMUT, AMTHFR #### [facility] [address] [place] [address] [employer]: Melchor Rubin MD #### LUPPRO #### [facility] [place], [place] 8523708 [employer]: Temo Tipton MD [address] [place], [place] 5369583 [employer]: JESSICA Singhalcium [Mass/Vol]10.0 mg/dLNormal8.6-10.4Lakehealth Tripoint Medical CenterComment on above:Performed By: #### APTMUT, AMTHFR #### [facility] [address] [place] [address] [employer]: Melchor Rubin MD #### LUPPRO #### [facility] [address] [place] [address] [employer]: Temo Tipton MD [address] [place], [place] 9146683 [employer]: JESSICA Singhhloride [Moles/Vol]97 mmol/WKtw35-774PnllmLakehealth Tripoint Medical CenterComment on above:Performed By: #### RAYMONDMUT, AMTHFR #### [facility] [address] [place] [address] [employer]: Melchor Rubin MD #### LUPPRO #### [address] [address] [employer]: Temo Tipton MD [address] [place], [place] 8173283 [employer]: JESSICA SinghO2 [Moles/Vol]23 mmol/HWcshym97-72IudqsLakehealth Tripoint Medical CenterComment on above:Performed By: #### APTMUT, AMTHFR #### [facility] [address] [place] [address] [employer]: Melchor Rubin MD #### LUPPRO #### [address] [address] [employer]: Temo Tipton MD [address] [place], [place] 0216483 [employer]: JESSICA Singhreatinine [Mass/Vol]1.2 mg/dLHigh0.50-0.90Lakehealth Tripoint Medical CenterComment on above:Performed By: #### APTMUT, AMTHFR #### [facility] [address] [place] [address] [employer]: Melchor Rubin MD #### LUPPRO #### [place] [address] [place] [address] [employer]: Temo Tipton MD [address] [place], [place] 9630483 [employer]: Christian Hanley MDGFR/1.73 sq M.predicted among non-blacks MDRD (S/P/Bld) [Vol rate/Area]67 mL/min/{1.73_m2}Normal>60[facility] Comment on above:Result Comment: These [...] #### APTMUT, AMTHFR #### [facility] [address] [place] [address] [employer]: Melchor Rubin MD #### LUPPRO #### [place] [address] [place] [address] [employer]: Temo Tipton MD [address] [place], [place] 432[address]83 [employer]: Christian Hanley MDGlucose [Mass/Vol]141 mg/uOItfl19-21QwyzsSt. Vincent HospitalComment on above:Performed By: #### APTMUT, AMTHFR #### [facility] [address] [place] [address] [employer]: Melchor Rubin MD #### LUPPRO #### [facility] [address] [place] [address] [employer]: Temo Tipton MD [address] [place], [place] 8500[address]83 [employer]: AWILDA Singhotassium [Moles/Vol]3.3 mmol/LLow3.7-5.3MSt. Vincent HospitalComment on above:Performed By: #### APTMUT, AMTHFR #### [facility] [address] [place] [address] [employer]: Melchor Rubin MD #### LUPPRO #### [address] [address] [employer]: Temo Tipton MD [address] [place] [phone] [employer]: FREYA Singhodium [Moles/Vol]138 mmol/YZhedaq925-191Uimka Tiffin HospitalComment on above:Performed By: #### APTMUT, AMTHFR #### [facility] [address] [place], [place] [id number] [employer]: Melchor Rubin MD #### LUPPRO #### [address] [address] [employer]: Temo Tipton MD [address] [place], [place] [address]64[address]83 [employer]: Christian Hanley MDUrea nitrogen [Mass/Vol]16 mg/dLNormal6-20[facility]point Medical CenterComment on above:Performed By: #### APTMUT, AMTHFR #### [facility] [address] [place] [address] [employer]: Melchor Rubin MD #### LUPPRO #### [address] [address] [employer]: Temo Tipton MD [address] [place] [address] [employer]: Christian Hanley [facility] with Auto Differentialon [id number] (Bld) [#/Vol]0.04 10*3/uLBon [facility] HospitalBasophils/100 WBC (Bld)0 %0 - 2 %[facility] HospitalEosinophils (Bld) [#/Vol][facility] Eosinophils/100 WBC (Bld)0 %Low1 - 4 %[facility] HospitalErythrocyte distribution width (RBC) [Ratio]13.9 %11.8 - 14.4 %[facility] Hematocrit (Bld) [Volume fraction]38.7 %36.3 - 47.1 %[facility] Hemoglobin (Bld) [Mass/Vol]12.9 g/dL11.9 - 15.1 g/dLBon [facility] Immature granulocytes (Bld) [#/Vol]0.07 10*3/uLBon [facility] HospitalImmature granulocytes/100 WBC (Bld)1 %Iyfj0VbwStafford HospitalInterpretation and review of laboratory resultsAbnormalBon [facility] HospitalLymphocytes/100 WBC (Bld)10 %Low24 - 43 %[facility] HospitalLymphocytes/100 WBC (Bld)1.52 %[facility] CampusH (RBC) [Entitic mass]29.5 pg25.2 - 33.5 pgBon [facility] HospitalHC (RBC) [Mass/Vol]33.3 g/dL28.4 - 34.8 g/dLBon [facility] HospitalV (RBC) [Entitic vol]88.6 fL82.6 - 102.9 fLStafford Hospital Monocytes/100 WBC (Bld)7 %3 - 12 %[facility] HospitalMonocytes/100 WBC (Bld)1.01 %[facility] HospitalNeutrophils/100 WBC (Bld)82 %High36 - 65 %[facility] HospitalNucleated RBC/100 WBC (Bld) [Ratio]0.0 %0.0 per 100 WBCBon [facility] HospitalPlatelet mean volume (Bld) [Entitic vol]9.1 fL8.1 - 13.5 fL Bon [facility] HospitalPlatelets (Bld) [#/Vol]355 10*3/uLBon [facility] HospitalRBC (Bld) [#/Vol]4.37 10*6/uL3.95 - 5.11 m/uLStafford Hospital Segmented neutrophils/100 WBC (Bld)12.62 %HighBon [facility] HospitalWBC other (Bld) [#/Vol]15.3HighBon [facility]-Sioux FallsCBC with Diffon [id number]. Basophil0.04 k/uLNormal0.00-0.20[facility] Comment on above:Performed By: #### APTMUT, AMTHFR #### [facility] [address] [place], [place] [id number] [employer]: Melchor Rubin MD #### LUPPRO #### [address] [phone] [employer]: Temo Tipton MD [facility] [address] [place] [address] [place] [address] [employer]: Juana Singh. Eosinophil<0.19Feezdk9.00-0.44[facility]point Medical CenterComment on above:Performed By: #### APTMUT, AMTHFR #### [facility] [address] [place], [place] [id number] [employer]: Melchor Rubin MD #### LUPPRO #### [place] [address] [place], [place] [phone] [employer]: Temo Tipton MD [facility] [address] [place] [address] [place] [address] [employer]: Juana Singh.Imm.Granulocyte0.07 k/uLNormal0.00-0.30[facility] Medical CenterComment on above:Performed By: #### APTMUT, AMTHFR #### [facility] [address] [place] [address] [employer]: Melchor Rubin MD #### LUPPRO #### [address] [address] [employer]: Temo Tipton MD [address] [place], [place] [phone] [employer]: Juana Singh.Neutrophil (Seg)12.62 k/uLHigh1.50-8.10[facility] Medical CenterComment on above:Performed By: #### APTMUT, AMTHFR #### [facility] [address] [place] [address] [employer]: Melchor Rubin MD #### LUPPRO #### [address] [address] [employer]: Temo Tipton MD [address] [place], [place] [phone] [employer]: Christian Hanley MDBasophils/100 WBC (Bld)0 %Normal0-2MSt. Vincent HospitalComment on above:Performed By: #### APTMUT, AMTHFR #### [facility] [address] [place] [address] [employer]: Melchor Rubin MD #### LUPPRO #### [address] [address] [employer]: Temo Tipton MD [address] [place], [place] [phone] [employer]: Christian Hanley MDEosinophils/100 WBC (Bld)0 %Low1-4[facility] Medical CenterComment on above:Performed By: #### APTMUT, AMTHFR #### [facility] [address] [place] [address] [employer]: Melchor Rubin MD #### LUPPRO #### [facility] [address] [place] [address] [employer]: Temo Tipton MD [address] [place] [address] [employer]: Christian Hanley MDErythrocyte distribution width (RBC) [Ratio]13.9 % Zwnnat84.8-14.4MerParkview Health HospitalComment on above:Performed By: #### APTMUT, AMTHFR #### [facility] [address] [place] [address] [employer]: Melchor Rubin MD #### LUPPRO #### [address] [address] [employer]: Temo Tipton MD [address] [place] [phone] [employer]: Christian Hanley MDHematocrit (Bld) [Volume fraction]38.7 %Normal 36.3-47.1[facility] Bethany HospitalComment on above:Performed By: #### APTMUT, AMTHFR #### [facility] [address] [place] [address] [employer]: Melchor Rubin MD #### LUPPRO #### [address] [address] [employer]: Temo Tipton MD [address] [place] [phone] [employer]: Christian Hanley MDHemoglobin (Bld) [Mass/Vol]12.9 g/dLNormal 11.9-15.1Mer[facility] Gaylord HospitalComment on above:Performed By: #### APTMUT, AMTHFR #### [facility] [address] [place] [address] [employer]: Melchor Rubin MD #### LUPPRO #### [facility] [address] [place] [address] [employer]: Temo Tipton MD [facility] [address] [place] [address] Dr. [place], [place] 8994083 [employer]: Christian Hanley MDImmature granulocytes/100 WBC (Bld)1 %Yiqg4Egdqt Bethany HospitalComment on above:Performed By: #### APTMUT, AMTHFR #### [facility] [address] [place] [address] [employer]: Melchor Rubin MD #### LUPPRO #### [address] [address] [employer]: Temo Tipton MD [address] [place], [place] 9645483 [employer]: Christian Hanley MDLymphocytes (Bld) [#/Vol]1.52 10*3/uLNormal 1.10-3.70[facility] Campuscy Gaylord HospitalComment on above:Performed By: #### APTMUT, AMTHFR #### [facility] [address] [place] [address] [employer]: Melchor Rubin MD #### LUPPRO #### [facility] [address] [place] [address] [employer]: Temo Tipton MD [address] [place], [place] 5712683 [employer]: Christian Hanley MDLymphocytes/100 WBC (Bld)10 %Jya98-75[facility] Gaylord HospitalComment on above:Performed By: #### APTMUT, AMTHFR #### [facility] [address] [place] [address] [employer]: Melchor Rubin MD #### LUPPRO #### [facility] [address] [place] [address] [employer]: Temo Tipton MD [address] [place], [place] 0503783 [employer]: KARLY Singh (RBC) [Entitic mass]29.5 ixAazqon66.2-33.5 [facility] Medical CenterComment on above:Performed By: #### APTMUT, AMTHFR #### [facility] [address] [place] [address] [employer]: Melchor Rubin MD #### LUPPRO #### [facility] [address] [place] [address] [employer]: Temo Tipton MD [address] [place], [place] 0724883 [employer]: KARLY SinghC (RBC) [Mass/Vol]33.3 g/fLPqxjuj98.4-34.8[facility] Medical CenterComment on above:Performed By: #### APTMUT, AMTHFR #### [facility] [address] [place] [address] [employer]: Melchor Rubin MD #### LUPPRO #### [facility] [address] [place] [address] [employer]: Temo Tipton MD [address] [place], [place] 8298483 [employer]: CATALINO Singh (RBC) [Entitic vol]88.6 xPBufamt96.6-102.9 [facility] Medical CenterComment on above:Performed By: #### APTMUT, AMTHFR #### [facility] [address] [place] [address] [employer]: Melchor Rubin MD #### LUPPRO #### [facility] [address] [place] [address] [employer]: Temo Tipton MD [address] [place], [place] 2581283 [employer]: Christian Hanley MDMonocytes (Bld) [#/Vol]1.01 10*3/uLNormal0.10-1.20 [facility] Medical CenterComment on above:Performed By: #### APTMUT, AMTHFR #### [facility] [address] [place] [address] [employer]: Melchor Rubin MD #### LUPPRO #### [facility] [address] [place] [address] [employer]: Temo Tipton MD [facility] [address] [place] [address] [place] [address] [employer]: Christian Hanley MDMonocytes/100 WBC (Bld)7 %Normal3-12[facility] Medical CenterComment on above:Performed By: #### APTMUT, AMTHFR #### [facility] [address] [place] [address] [employer]: Melchor Rubin MD #### LUPPRO #### [address] [address] [employer]: Temo Tipton MD [facility] [address] [place] [address] [place] [address] [employer]: Christian Hanley MDNeutrophil (Seg)82 %Agcr56-14AlrbzLakehealth Tripoint Medical Center Comment on above:Performed By: #### APTMUT, AMTHFR #### [facility] [address] [place] [address] [employer]: Melchor Rubin MD #### LUPPRO #### [facility] [address] [place] [address] [employer]: Temo Tipton MD [facility] [address] [place] [address] [place] [address] [employer]: Christian Hanley MDNRBC Automated0.0 per 100 WBCNormal0.0L[facility] Medical CenterComment on above:Performed By: #### APTMUT, AMTHFR #### [facility] [address] [place] [address] [employer]: Melchor Rubin MD #### LUPPRO #### [facility] [address] [place] [address] [employer]: Temo Tipton MD [address] [address] [employer]: Benton Singh mean volume (Bld) [Entitic vol]9.1 fL Normal8.1-13.5L[facility] Medical CenterComment on above:Performed By: #### APTMUT, AMTHFR #### [facility] [address] [place] [address] [employer]: Melchor Rubin MD #### LUPPRO #### [facility] [address] [place] [address] [employer]: Temo Tipton MD [address] [place] [address] [employer]: Elvis Singh (Bld) [#/Vol]355 10*3/hFXndvgq707-127 [facility] Medical CenterComment on above:Performed By: #### APTMUT, AMTHFR #### [facility] [address] [place] [address] [employer]: Melchor Rubin MD #### LUPPRO #### [facility] [address] [place] [address] [employer]: Temo Tipton MD [address] [address] [employer]: TANIA Singh (Bld) [#/Vol]4.37 10*6/uLNormal3.95-5.11[facility] Medical CenterComment on above:Performed By: #### APTMUT, AMTHFR #### [facility] [address] [place] [address] [employer]: Melchor Rubin MD #### LUPPRO #### [address] [address] [employer]: Temo Tipton MD [address] [place] [phone] [employer]: Christian Hanley [facility] (d) [#/Vol]15.3 10*3/uLHigh3.5-11.3[facility] Gaylord HospitalComment on above:Performed By: #### APTMUT, AMTHFR #### [facility] [address] [place] [address] [employer]: Melchor Rubin MD #### LUPPRO #### [address] [address] [employer]: Temo Tipton MD [address] [place] [phone] [employer]: Alona Singh Scr, Abuse, Uron [id number](s),Ur NegativeNormalNEGMercy Bethany HospitalComment on above:Result Comment: Cutoff: 1000 ng/mLPerformed By: #### APTMUT, AMTHFR #### [facility] [address] [place] [address] [employer]: Melchor Rubin MD #### LUPPRO #### [address] [address] [employer]: Temo Tipton MD [address] [place] [phone] [employer]: Christian Hanley MDBarbiturate(s),UrNegativeNormalNEGMercy Bethany HospitalComment on above:Result Comment: Cutoff: 200 ng/mlPerformed By: #### APTMUT, AMTHFR #### [facility] [address] [place] [address] [employer]: Melchor Rubin MD #### LUPPRO #### [address] [address] [employer]: Temo Tipton MD [address] [place], [place] 8197283 [employer]: Christian Hanley MDBenzodiazepine(s)NegativeNormalNEGBluffton Hospital HospitalComment on above:Result Comment: Cutoff: 200 ng/mlPerformed By: #### APTMUT, AMTHFR #### [facility] [address] [place] [address] [employer]: Melchor Rubin MD #### LUPPRO #### [address] [address] [employer]: Temo Tipton MD [address] [place], [place] 7111283 [employer]: JESSICA Singhannabinoid(s),UrPositiveAbnormalNEGBluffton Hospital HospitalComment on above:Result Comment: Cutoff: 50 ng/mlPerformed By: #### APTMUT, AMTHFR #### [facility] [address] [place] [address] [employer]: Melchor Rubin MD #### LUPPRO #### [address] [address] [employer]: Temo Tipton MD [address] [address] [employer]: JESSICA Singhocaine MetaboliteNegativeNormalNEGBluffton Hospital HospitalComment on above:Result Comment: Cutoff: 300 ng/mlPerformed By: #### APTMUT, AMTHFR #### [facility] [address] [place] [address] [employer]: Melchor Rubin MD #### LUPPRO #### [facility] [address] [place] [address] [employer]: Temo Tipton MD [address] [place], [place] 9287283 [employer]: Christian Hanley MDFentanyl, UrineNegativeNormalNEGMercy Bethany HospitalComment on above:Result Comment: Cutoff: 5 ng/mlPerformed By: #### APTMUT, AMTHFR #### [facility] [address] [place] [address] [employer]: Melchor Rubin MD #### LUPPRO #### [address] [address] [employer]: Temo Tipton MD [address] [place] [phone] [employer]: Christian Hanley MDInterpretive InfoThis method is a screening test to detect only these drug classes as part of aNormalMercy Gaylord HospitalComment on above:Result Comment: medical workup. Confirmatory testing by another method should be ordered if clinically indicated.Performed By: #### APTMUT, AMTHFR #### [facility] [address] [place] [address] [employer]: Melchor Rubin MD #### LUPPRO #### [address] [address] [employer]: Temo Tipton MD [facility] [address] [place] [address] Dr. [place], [place] 2552283 [employer]: JOSÉ LUIS iSnghethadone Ql (U)NegativeNormalNEGMercy Gaylord HospitalComment on above:Result Comment: Cutoff: 300 ng/mlPerformed By: #### APTMUT, AMTHFR #### [facility] [address] [place] [address] [employer]: Melchor Rubin MD #### LUPPRO #### [address] [address] [employer]: Temo Tipton MD [address] [address] [employer]: Christian Hanley MDOpiate(s), UrNegativeNormalNEGMerParkview Health HospitalComment on above:Result Comment: Cutoff: 300 ng/ml Note: The Opiate screen is not intended to detect Oxycodone.Performed By: #### APTMUT, AMTHFR #### [facility] [address] [place] [address] [employer]: Melchor Rubin MD #### LUPPRO #### [address] [address] [employer]: Temo Tipton MD [address] [address] [employer]: Christian Hanley MDOxycodone, UrineNegativeNormalNEGMercy Bethany HospitalComment on above:Result Comment: Cutoff: 100 ng/mlPerformed By: #### APTMUT, AMTHFR #### [facility] [address] [place] [address] [employer]: Melchor Rubin MD #### LUPPRO #### [address] [address] [employer]: Temo Tipton MD [address] [address] [employer]: AWILDA Singhhencyclidine, UrNegativeNormalNEGMercy Bethany HospitalComgarden city hospital on above:Result Comment: Cutoff: 25 ng/mlPerformed By: #### APTMUT, AMTHFR #### [facility] [address] [place] [address] [employer]: Melchor Rubin MD #### LUPPRO #### [facility] [address] [place] [address] [employer]: Temo Tipton MD [facility] [address] [place] [address] Dr. [place], [place] 0778783 [employer]: Christian Hanley MDUrinalysis w/ Microon [id number]+Abnormal NONELakehealth Tripoint Medical CenterComment on above:Performed By: #### APTMUT, AMTHFR #### [facility] [address] [place] [address] [employer]: Melchor Rubin MD #### LUPPRO #### [facility] [address] [place] [address] [employer]: Temo Tipton MD [facility] [address] [place] [address] Dr. [place], [place] [phone] [employer]: Christian Hanley MDBilirubin, SemiQt,UrNegativeNormalNEGLakehealth Tripoint Medical CenterComment on above:Performed By: #### APTMUT, AMTHFR #### [facility] [address] [place] [address] [employer]: Melchor Rubin MD #### LUPPRO #### [facility] [address] [place] [address] [employer]: Temo Tipton MD [facility] [address] [place] [address] Dr. [place], [place] [phone] [employer]: Christian Hanley MDBlood, UrineTRACEAbnormalMercy Health Comment on above:Performed By: #### APTMUT, AMTHFR #### [facility] [address] [place] [address] [employer]: Melchor Rubin MD #### LUPPRO #### [facility] [address] [place] [address] [employer]: Temo Tipton MD [facility] [address] [place] [address] Dr. [place], [place] 1596583 [employer]: JESSICA Singhlarity (U)ClearNormalCLEARLakehealth Tripoint Medical Center Comment on above:Performed By: #### APTMUT, AMTHFR #### [facility] [address] [place], [place] [address] [employer]: Melchor Rubin MD #### LUPPRO #### [address] [address] [employer]: Temo Tipton MD [facility] [address] [place] [address] [place] [address] [employer]: JESSICA Singholor (U)YellowNoFirelands Regional Medical Center Comment on above:Performed By: #### APTMUT, AMTHFR #### [facility] [address] [place], [place] [id number] [employer]: Melchor Rubin MD #### LUPPRO #### [address] [address] [employer]: Temo Tipton MD [facility] [address] [place] [address] [place] [address] [employer]: Christian Hanley MDEpithelial cells LM Ql (Urine sed)10 TO 20Normal 0-25[facility] Medical CenterComment on above:Performed By: #### APTMUT, AMTHFR #### [facility] [address] [place], [place] [id number] [employer]: Melchor Rubin MD #### LUPPRO #### [facility] [address] [place] [address] [employer]: Temo Tipton MD [facility] [address] [place] [address] [employer]: Christian Hanley MDGlucose Ql (U)NegativeNormalNEGLakehealth Tripoint Medical CenterComment on above:Performed By: #### APTMUT, AMTHFR #### [facility] [address] [place] [address] [employer]: Melchor Rubin MD #### LUPPRO #### [facility] [address] [place] [address] [employer]: Temo Tipton MD [facility] [address] [place] [address] Dr. [place], [place] [phone] [employer]: Christian Hanley MDKetones Ql (U)NegativeNormalNEGMerThe Hospital of Central ConnecticutComment on above:Performed By: #### APTMUT, AMTHFR #### [facility] [address] [place] [address] [employer]: Melchor Rubin MD #### LUPPRO #### [address] [address] [employer]: Temo Tipton MD [facility] [address] [place] [address] [place], [place] [phone] [employer]: Christian Hanley MDLeukocyte esterase Test strip Ql (U)NegativeNormal NEGLakehealth Tripoint Medical CenterComment on above:Performed By: #### APTMUT, AMTHFR #### [facility] [address] [place] [address] [employer]: Melchor Rubin MD #### LUPPRO #### [address] [address] [employer]: Temo Tipton MD [facility] [address] [place] [address] [place], [place] 9660783 [employer]: JOSÉ LUIS Singhucus Strands1+AbnormalNONEMeHartford Hospital Comment on above:Performed By: #### APTMUT, AMTHFR #### [facility] [address] [place] [address] [employer]: Melchor Rubin MD #### LUPPRO #### [address] [address] [employer]: Temo Tipton MD [facility] [address] [place] [address] Dr. [place], [place] [phone] [employer]: Christian Hanley MDNitrite,UrNegativeNormalNEGLakehealth Tripoint Medical Center Comment on above:Performed By: #### APTMUT, AMTHFR #### [facility] [address] [place] [address] [employer]: Melchor Rubin MD #### LUPPRO #### [facility] [address] [place] [address] [employer]: Temo Tipton MD [facility] [address] [place] [address] Dr. [place], [place] 6163583 [employer]: Christian Hanley [facility],Ur6.2Xpvlww7.0-9.0Lakehealth Tripoint Medical CenterComment on above:Performed By: #### APTMUT, AMTHFR #### [facility] [address] [place] [address] [employer]: Melchor Rubin MD #### LUPPRO #### [address] [address] [employer]: Temo Tipton MD [address] [place], [place] 0010483 [employer]: Didier Singh Ql (U)2+ mg/dLAbnormalNEGLakehealth Tripoint Medical CenterComment on above:Performed By: #### APTMUT, AMTHFR #### [facility] [address] [place] [address] [employer]: Melchor Rubin MD #### LUPPRO #### [facility] [address] [place] [address] [employer]: Temo Tipton MD [facility] [address] [place] [address] Dr. [place], [place] 1155083 [employer]: FREYA Singhpec. Adel,Ur>1.373Gedu0.010-1.020Lakehealth Tripoint Medical CenterComment on above:Performed By: #### APTMUT, AMTHFR #### [facility] [address] [place] [address] [employer]: Melchor Rubin MD #### LUPPRO #### [facility] [address] [place] [address] [employer]: Temo Tipton MD [address] [place], [place] 1543[address] [employer]: Louann Singh RBC's0 TO 9Pquhyu8-1YaccfSt. Vincent Hospital Comment on above:Performed By: #### APTMUT, AMTHFR #### [facility] [address] [place] [address] [employer]: Melchor Rubin MD #### LUPPRO #### [address] [address] [employer]: Temo Tipton MD [address] [place] [address] [employer]: Louann Singh WBC's0 TO 2Eioizr3-7DqurrLakehealth Tripoint Medical Center Comment on above:Performed By: #### APTMUT, AMTHFR #### [facility] [address] [place] [address] [employer]: Melchor Rubin MD #### LUPPRO #### [address] [address] [employer]: Temo Tipton MD [facility] [address] [place] [address] [place] [address] [employer]: Christian Hanley MDUrobilinogen,UrNormalNormal0.0-1.0Lakehealth Tripoint Medical CenterComment on above:Performed By: #### APTMUT, AMTHFR #### [facility] [address] [place] [address] [employer]: Melchor Rubin MD #### LUPPRO #### [facility] [address] [place], [place] [phone] [employer]: Temo Tipton MD [facility] [address] [place] [address] [employer]: Christian Hanley MDUrinalysis with Microscopicon [id number] LM Ql (Urine sed)1+AbnormalNoneBon Secours Mercy HealthBilirubin [...] Mercy HealthBon Secours Mercy HealthUrine Drug Screenon [id number] Ql (U)NegativeNEGATIVEBon Secours Mercy HealthComment on above:Cutoff: [...] should be ordered if clinically indicated.[facility]y HealthBon SecKadlec Regional Medical Centery [facility] John Medical CenterBasic Metab w/rfx MGon [id number] gap [Moles/Vol]12 mmol/LNormal9-16Lakehealth Tripoint Medical CenterComment on above:Performed By: #### APTMUT, AMTHFR #### [facility] [address] [place] [address] [employer]: Melchor Rubin MD #### LUPPRO #### [facility] [address] [place] [address] [employer]: Temo Tipton MD [facility] [address] [place] [address] [employer]: Christian Hanley MDBUN/CRE Fpsaj98Howung7-89Cjfgg [facility] Comment on above:Performed By: #### APTMUT, AMTHFR #### [facility] [address] [place] [address] [employer]: Melchor Rubin MD #### LUPPRO #### [address] [address] [employer]: Temo Tipton MD [address] [place], [place] 5937983 [employer]: JESSICA Singhalcium [Mass/Vol]8.4 mg/dLLow8.6-10.4Lakehealth Tripoint Medical CenterComment on above:Performed By: #### APTMUT, AMTHFR #### [facility] [address] [place] [address] [employer]: Melchor Rubin MD #### LUPPRO #### [address] [address] [employer]: Temo Tipton MD [address] [place] [address] [employer]: JESSICA Singhhloride [Moles/Vol]96 mmol/XYgs72-566EbvukLakehealth Tripoint Medical CenterComment on above:Performed By: #### APTMUT, AMTHFR #### [facility] [address] [place] [address] [employer]: Melchor Rubin MD #### LUPPRO #### [address] [address] [employer]: Temo Tipton MD [address] [place] [address] [employer]: JESSICA SinghO2 [Moles/Vol]30 mmol/BSpjvlc49-42CdreuLakehealth Tripoint Medical CenterComment on above:Performed By: #### APTMUT, AMTHFR #### [facility] [address] [place] [address] [employer]: Melchor Rubin MD #### LUPPRO #### [facility] [address] [place] [address] [employer]: Temo Tipton MD [address] [place], [place] 7242083 [employer]: JESSICA Singhreatinine [Mass/Vol]1.0 mg/dLHigh0.50-0.90Lakehealth Tripoint Medical CenterComment on above:Performed By: #### APTMUT, AMTHFR #### [facility] [address] [place] [address] [employer]: Melchor Rubin MD #### LUPPRO #### [address] [address] [employer]: Temo Tipton MD [address] [address] [employer]: Christian Hanley MDGFR/1.73 sq M.predicted among non-blacks MDRD (S/P/Bld) [Vol rate/Area]78 mL/min/{1.73_m2}Normal>60[facility] Comment on above:Result Comment: These [...] #### APTMUT, AMTHFR #### [facility] [address] [place] [address] [employer]: Melchor Rubin MD #### LUPPRO #### [facility] [address] [place] [address] [employer]: Temo Tipton MD [facility] [place], [place] 9438983 [employer]: Christian Hanley MDGlucose [Mass/Vol]100 mg/tTWoiw66-77RknpqSt. Vincent HospitalComment on above:Performed By: #### APTMUT, AMTHFR #### [facility] [address] [place] [address] [employer]: Melchor Rubin MD #### LUPPRO #### [facility] [address] [place] [address] [employer]: Temo Tipton MD [address] [place], [place] 8795583 [employer]: AWILDA Singhotassium [Moles/Vol]2.6 mmol/LCritically low 3.7-5.3Mer[facility] Bethany HospitalComment on above:Performed By: #### APTMUT, AMTHFR #### [facility] [address] [place] [address] [employer]: Melchor Rubin MD #### LUPPRO #### [facility] [address] [place] [address] [employer]: Temo Tipton MD [address] [place], [place] 6589283 [employer]: FREYA Singhodium [Moles/Vol]138 mmol/DPzqiei597-655Qtzjs Gaylord HospitalComment on above:Performed By: #### APTMUT, AMTHFR #### [facility] [address] [place] [address] [employer]: Melchor Rubin MD #### LUPPRO #### [facility] [address] [place] [address] [employer]: Temo Tipton MD [address] [place], [place] 4386383 [employer]: Christian Hanley MDUrea nitrogen [Mass/Vol]19 mg/dLNormal6-20Lakehealth Tripoint Medical CenterComment on above:Performed By: #### APTMUT, AMTHFR #### [facility] [address] [place] [address] [employer]: Melchor Rubin MD #### LUPPRO #### [facility] [address] [place] [address] [employer]: Temo Tipton MD [facility] [address] [place] [address] [employer]: Christian Hanley MDMilford [facility] Metabolic Panel w/ Reflex to MGon 04-26-2024 Anion gap [Moles/Vol]12 mmol/L9 - 16 mmol/LBon [facility] West HospitalCloudaccCalcium [Mass/Vol]8.4 mg/dLLow8.6 - 10.4 mg/dLBon [facility] HospitalCloudaccChloride [Moles/Vol]96 mmol/LLow98 - 107 mmol/LBon [facility] HospitalCloudaccCO2 [Moles/Vol]30 mmol/L20 - 31 mmol/LBon [facility] HospitalCloudaccCreatinine [Mass/Vol]1.0 mg/dLHigh 0.50 - 0.90 mg/dLBon [facility] HospitalCloudaccEst, Glom Filt Rate78- PINFBon Henry Mayo Newhall Memorial HospitalArisdyne Systems [facility] St[facility] John Medical CenterComment on above: These results are [...] that affects renal tubular secretion. Glucose [Mass/Vol]100 mg/xENlvw28 - 99 mg/dLBon [facility] Interpretation and review of laboratory resultsAbnormalBon [facility] HospitalCloudacc Potassium [Moles/Vol]2.6 mmol/LCritically low3.7 - 5.3 mmol/LBon SecCloudaccSodium [Moles/Vol]138 mmol/L136 - 145 mmol/LBon [facility] HospitalCloudaccUrea nitrogen [Mass/Vol]19 mg/dL6 - 20 mg/dLBon [facility] HospitalUrea nitrogen/Creatinine [Mass ratio]19 mg/mg9 - 20Bon [facility] HospitalBon [facility] HospitalCBC with Auto Differentialon [id number] (Bld) [#/Vol]0.05 10*3/uLBon [facility] HospitalBasophils/100 WBC (Bld)1 %0 - 2 %[facility]ord HospitalEosinophils (Bld) [#/Vol]0.24 10*3/uLBon SecAvita Health System Galion HospitalEosinophils/100 WBC (Bld)2 %1 - 4 %Stafford HospitalErythrocyte distribution width (RBC) [Ratio]13.4 %11.8 - 14.4 %[facility] Hematocrit (Bld) [Volume fraction]33.4 %Low36.3 - 47.1 %[facility] Hemoglobin (Bld) [Mass/Vol]11.6 g/dLLow11.9 - 15.1 g/dLBon [facility] Immature granulocytes (Bld) [#/Vol]0.05 10*3/uLBon [facility] HospitalImmature granulocytes/100 WBC (Bld)1 %Helz6PlxStafford HospitalInterpretation and review of laboratory resultsAbnormalStafford HospitalLymphocytes/100 WBC (Bld)29 %24 - 43 %Stafford HospitalLymphocytes/100 WBC (Bld)2.87 %[facility] CampusH (RBC) [Entitic mass]29.7 pg25.2 - 33.5 pgHenrico Doctors' Hospital—Parham CampusHC (RBC) [Mass/Vol]34.7 g/dL28.4 - 34.8 g/dLBon [facility] HospitalV (RBC) [Entitic vol]85.6 fL82.6 - 102.9 fLStafford Hospital Monocytes/100 WBC (Bld)10 %3 - 12 %[facility] HospitalMonocytes/100 WBC (Bld)0.98 %[facility]ord HospitalNeutrophils/100 WBC (Bld)58 %36 - 65 %[facility] HospitalNucleated RBC/100 WBC (Bld) [Ratio]0 %0.0 per 100 WBCStafford HospitalPlatelet mean volume (Bld) [Entitic vol]10.9 fL8.1 - 13.5 fL Stafford HospitalPlatelets (Bld) [#/Vol]238 10*3/uLStafford HospitalRBC (Bld) [#/Vol]3.9 10*6/uLLow3.95 - 5.11 m/uLStafford Hospital Segmented neutrophils/100 WBC (Bld)5.69 %Stafford HospitalWBC other (Bld) [#/Vol]9.9Bon [facility]-Sioux FallsCBC with Diffon [id number]. Basophil0.05 k/uLNormal0.00-0.20L[facility] Tripoint Medical CenterComment on above:Performed By: #### APTMUT, AMTHFR #### [facility] [address] [place], [place] [address] [employer]: Melchor Rubin MD #### LUPPRO #### [facility] [address] [place] [id number] [employer]: Temo Tipton MD [facility] [address] [place] [address] [employer]: Juana Singh.Imm.Granulocyte0.05 k/uLNormal0.00-0.30L[facility] Tripoint Medical CenterComment on above:Performed By: #### APTMUT, AMTHFR #### [facility] [address] [place] [address] [employer]: Melchor Rubin MD #### LUPPRO #### [address] [address] [employer]: Temo Tipton MD [facility] [address] [place] [address] [place] [address] [employer]: Juana Singh.Neutrophil (Seg)5.69 k/uLNormal1.50-8.10L[facility] Tripoint Medical CenterComment on above:Performed By: #### APTMUT, AMTHFR #### [facility] [address] [place] [address] [employer]: Melchor Rubin MD #### LUPPRO #### [address] [address] [employer]: Temo Tipton MD [address] [place] [phone] [employer]: Christian Hanley MDBasophils/100 WBC (Bld)1 %Normal0-2MSt. Vincent HospitalComment on above:Performed By: #### APTMUT, AMTHFR #### [facility] [address] [place] [address] [employer]: Melchor Rubin MD #### LUPPRO #### [address] [address] [employer]: Temo Tipton MD [address] [place] [address] [employer]: Christian Hanley MDEosinophils (Bld) [#/Vol]0.24 10*3/uLNormal 0.00-0.44L[facility]health Tripoint Medical CenterComment on above:Performed By: #### RAYMONDMUT, AMTHFR #### [facility] [address] [place] [address] [employer]: Melchor Rubin MD #### LUPPRO #### [address] [address] [employer]: Temo Tipton MD [address] [place] [address] [employer]: PAPO Singhosinophils/100 WBC (Bld)2 %Normal1-4[facility] HospitalComment on above:Performed By: #### APTMUT, AMTHFR #### [facility] [address] [place] [address] [employer]: Melchor Rubin MD #### LUPPRO #### [facility] [address] [place] [address] [employer]: Temo Tipton MD [address] [place], [place] 2752583 [employer]: Christian Hanley MDErythrocyte distribution width (RBC) [Ratio]13.4 % Zvdddd17.8-14.4L[facility] Tripoint Medical CenterComment on above:Performed By: #### APTMUT, AMTHFR #### [facility] [address] [place] [address] [employer]: Melchor Rubin MD #### LUPPRO #### [address] [address] [employer]: Temo Tipton MD [address] [address] [employer]: Christian Hanley MDHematocrit (Bld) [Volume fraction]33.4 %Low 36.3-47.1MBluffton Hospital HospitalComment on above:Performed By: #### APTMUT, AMTHFR #### [facility] [address] [place] [address] [employer]: Melchor Rubin MD #### LUPPRO #### [facility] [address] [place] [address] [employer]: Temo Tipton MD [address] [address] [employer]: Christian Hanley MDHemoglobin (Bld) [Mass/Vol]11.6 g/dLLow11.9-15.1 [facility] Medical CenterComment on above:Performed By: #### APTMUT, AMTHFR #### [facility] [address] [place] [address] [employer]: Melchor Rubin MD #### LUPPRO #### [address] [address] [employer]: Temo Tipton MD [address] [place], [place] 1191083 [employer]: Christian Hanley MDImmature granulocytes/100 WBC (Bld)1 %Usei3ZhwbfBluffton Hospital HospitalComment on above:Performed By: #### APTMUT, AMTHFR #### [facility] [address] [place] [address] [employer]: eMlchor Rubin MD #### LUPPRO #### [address] [address] [employer]: Temo Tipton MD [address] [place] [phone] [employer]: Christian Hanley MDLymphocytes (Bld) [#/Vol]2.87 10*3/uLNormal 1.10-3.70L[facility] Tripoint Medical CenterComment on above:Performed By: #### APTMUT, AMTHFR #### [facility] [address] [place] [address] [employer]: Melchor Rubin MD #### LUPPRO #### [address] [address] [employer]: Temo Tipton MD [address] [place], [place] 7240483 [employer]: Christian Hanley MDLymphocytes/100 WBC (Bld)29 %Beoeyk02-04HvgncLakehealth Tripoint Medical CenterComment on above:Performed By: #### APTMUT, AMTHFR #### [facility] [address] [place] [address] [employer]: Melchor Rubin MD #### LUPPRO #### [address] [address] [employer]: Temo Tipton MD [address] [place] [phone] [employer]: KARLY Singh (RBC) [Entitic mass]29.7 piXslssb36.2-33.5 [facility] Medical CenterComment on above:Performed By: #### APTMUT, AMTHFR #### [facility] [address] [place] [address] [employer]: Melchor Rubin MD #### LUPPRO #### [address] [address] [employer]: Temo Tipton MD [address] [place] [phone] [employer]: KARLY SinghC (RBC) [Mass/Vol]34.7 g/qGOewchg95.4-34.8[facility] HospitalComment on above:Performed By: #### APTMUT, AMTHFR #### [facility] [address] [place] [address] [employer]: Melchor Rubin MD #### LUPPRO #### [address] [address] [employer]: Temo Tipton MD [address] [place] [phone] [employer]: JOSÉ LUIS SinghCV (RBC) [Entitic vol]85.6 iHHtmwet34.6-102.9 [facility] HospitalComment on above:Performed By: #### APTMUT, AMTHFR #### [facility] [address] [place] [address] [employer]: Melchor Rubin MD #### LUPPRO #### [address] [address] [employer]: Temo Tipton MD [address] [place] [address] [employer]: Christian Hanley MDMonocytes (Bld) [#/Vol]0.98 10*3/uLNormal0.10-1.20 [facility] Medical CenterComment on above:Performed By: #### APTMUT, AMTHFR #### [facility] [address] [place] [address] [employer]: Melchor Rubin MD #### LUPPRO #### [address] [address] [employer]: Temo Tipton MD [address] [address] [employer]: JOSÉ LUIS Singhonocytes/100 WBC (Bld)10 %Normal3-12L[facility] Tripoint Medical CenterComment on above:Performed By: #### APTMUT, AMTHFR #### [facility] [address] [place] [address] [employer]: Melchor Rubin MD #### LUPPRO #### [facility] [address] [place] [address] [employer]: Temo Tipton MD [address] [address] [employer]: Christian Hanley MDNeutrophil (Seg)58 %Oisaho39-94LwcbqLakehealth Tripoint Medical CenterComment on above:Performed By: #### APTMUT, AMTHFR #### [facility] [address] [place] [address] [employer]: Melchor Rubin MD #### LUPPRO #### [facility] [address] [place] [address] [employer]: Temo Tipton MD [address] [address] [employer]: Christian Hanley MDNRBC Automated0.0 per 100 WBCNormal0.0L[facility] Medical CenterComgarden city hospital on above:Performed By: #### APTMUT, AMTHFR #### [facility] [address] [place] [address] [employer]: Melchor Rubin MD #### LUPPRO #### [facility] [address] [place] [address] [employer]: Temo Tipton MD [address] [place] [address] [employer]: Benton Singh mean volume (Bld) [Entitic vol]10.9 fL Normal8.1-13.5L[facility] Tripoint Medical CenterComment on above:Performed By: #### APTMUT, AMTHFR #### [facility] [address] [place] [address] [employer]: Melchor Rubin MD #### LUPPRO #### [facility] [address] [place] [address] [employer]: Temo Tipton MD [address] [place] [address] [employer]: Elvis Singh (Bld) [#/Vol]238 10*3/sOWtvnvq274-799 [facility] CenterComgarden city hospital on above:Performed By: #### APTMUT, AMTHFR #### [facility] [address] [place] [address] [employer]: Melchor Rubin MD #### LUPPRO #### [facility] [address] [place] [address] [employer]: Temo Tipton MD [address] [address] [employer]: TANIA Singh (Bld) [#/Vol]3.90 10*6/uLLow3.95-5.11L[facility] Medical CenterComment on above:Performed By: #### APTMUT, AMTHFR #### [facility] [address] [place] [address] [employer]: Melchor Rubin MD #### LUPPRO #### [facility] [address] [place], [place] [phone] [employer]: Temo Tipton MD [address] [address] [employer]: Christian Hanley MDELLENVILLE [facility] (d) [#/Vol]9.9 10*3/uLNormal3.5-11.3MSt. Vincent HospitalComment on above:Performed By: #### APTMUT, AMTHFR #### [facility] [address] [place] [address] [employer]: Melchor Rubin MD #### LUPPRO #### [facility] [address] [place] [address] [employer]: Temo Tipton MD [address] [address] [employer]: LELE Singh ABDOMEN PELVIS W IV CONTRASTon [id number] ABDOMEN PELVIS W IV CONTRASTEXAMINATION: CT OF [...] by: John Porter DO 04/26/25 Final resultNormalMercy Gaylord HospitalCT Abdomen and Pelvis W contrast Clyde [id number] acute intra-abdominal or pelvic process. [facility] CONSOLIDATEDEXAMINATION: CT OF THE ABDOMEN AND PELVIS [...] No acute osseous or soft tissue abnormality. [facility] John Aguero DO - 04/26/2025 EXAMINATION: CT [...] No acute intra-abdominal or pelvic process. [facility] Abdomen and Pelvis W contrast IVOrdered By: John Porter on [id number] [facility] Work Phone: ekg Rhythm Stripon [id number] Community HealthcareK (Potassium)on [id number] [Moles/Vol]4.3 mmol/LNormal 3.7-5.3Mercy Gaylord HospitalComment on above:Result Comment: Specimen hemolysis has exceeded the interference as defined by Macy. Value may be falsely increased. Suggest recollection if clinically indicated.Performed By: #### APTMUT, AMTHFR #### [facility] [address] [place] [address] [employer]: Melchor Rubin MD #### LUPPRO #### [facility] [address] [place] [address] [employer]: Temo Tipton MD [facility] [address] [place] [address] [employer]: Christian Hanley MDKeppraon [id number] ug/mLNormalLakehealth Tripoint Medical CenterComment on above:Result Comment: A reference [...] not known. Performed By: #### KEPPRA #### [facility] [place] [address] [employer]: Temo Tipton MDMagnesiumon [id number] [Mass/Vol]2.6 mg/dL1.6 - 2.6 mg/dLBon [facility]-Sioux FallsMagnesium [Mass/Vol]2.6 mg/dLNormal1.6-2.6Mer[facility] Gaylord HospitalComment on above:Performed By: #### APTMUT, AMTHFR #### [facility] [address] [place] [address] [employer]: Melchor Rubin MD #### LUPPRO #### [facility] [address] [place] [address] [employer]: Temo Tipton MD [facility] [address] [place] [address] [employer]: AWILDA Singhotassiumon [id number] [Moles/Vol]4.3 mmol/L3.7 - 5.3 mmol/LBon [facility] HospitalComgarden city hospital on above:Specimen hemolysis has exceeded the interference as defined by Macy. Value may be falsely increased. Suggest recollection if clinically indicated. [facility] HospitalCBC with Auto Differentialon [id number] (Bld) [#/Vol]0.08 10*3/uLBon [facility] HospitalBasophils/100 WBC (Bld)1 %0 - 2 %[facility] HospitalEosinophils (Bld) [#/Vol]0.03 10*3/uLBon [facility] HospitalEosinophils/100 WBC (Bld)0 %Low1 - 4 %[facility]ord HospitalErythrocyte distribution width (RBC) [Ratio]13.1 %11.8 - 14.4 %[facility] Hematocrit (Bld) [Volume fraction]46.2 %36.3 - 47.1 %[facility] Hemoglobin (Bld) [Mass/Vol]16.5 g/kLHfet73.9 - 15.1 g/dLBon [facility] Immature granulocytes (Bld) [#/Vol]0.1 10*3/uLBon [facility] HospitalImmature granulocytes/100 WBC (Bld)1 %Hcep4VplStafford HospitalInterpretation and review of laboratory resultsAbnormalStafford HospitalLymphocytes/100 WBC (Bld)7 %Low24 - 43 %[facility] HospitalLymphocytes/100 WBC (Bld)1.17 %[facility] CampusH (RBC) [Entitic mass]29.7 pg25.2 - 33.5 pgBon [facility] HospitalHC (RBC) [Mass/Vol]35.7 g/bBXwhn38.4 - 34.8 g/dLBon [facility] HospitalV (RBC) [Entitic vol]83.1 fL82.6 - 102.9 fLStafford Hospital Monocytes/100 WBC (Bld)7 %3 - 12 %[facility] HospitalMonocytes/100 WBC (Bld)1.2 %[facility] HospitalNeutrophils/100 WBC (Bld)84 %High36 - 65 %[facility] HospitalNucleated RBC/100 WBC (Bld) [Ratio]0 %0.0 per 100 WBCBon [facility] HospitalPlatelet mean volume (Bld) [Entitic vol]10.9 fL8.1 - 13.5 fL Bon [facility] HospitalPlatelets (Bld) [#/Vol]411 10*3/uLBon [facility] HospitalRBC (Bld) [#/Vol]5.56 10*6/uLHigh3.95 - 5.11 m/[facility] Segmented neutrophils/100 WBC (Bld)14.74 %HighBon [facility] HospitalWBC other (Bld) [#/Vol]17.3HighBon [facility]oux FallsCBC with Diffon [id number]. Basophil0.08 k/uLNormal0.00-0.20[facility] Comment on above:Performed By: #### APTMUT, AMTHFR #### [facility] [address] [place], [place] [id number] [employer]: Melchor Rubin MD #### LUPPRO #### [facility] [address] [place], [place] [id number] [employer]: Temo Tipton MD [facility] [address] [place] [address] [place] [address] [employer]: Juana Singh.Imm.Granulocyte0.10 k/uLNormal0.00-0.30Lakehealth Tripoint Medical CenterComment on above:Performed By: #### APTMUT, AMTHFR #### [facility] [address] [place] [address] [employer]: Melchor Rubin MD #### LUPPRO #### [facility] [address] [place], [place] [phone] [employer]: Temo Tipton MD [facility] [address] [place] [address] [place] [address] [employer]: Juana Singh.Neutrophil (Seg)14.74 k/uLHigh1.50-8.10Lakehealth Tripoint Medical CenterComment on above:Performed By: #### APTMUT, AMTHFR #### [facility] [address] [place] [address] [employer]: Melchor Rubin MD #### LUPPRO #### [address] [address] [employer]: Temo Tipton MD [address] [place], [place] [address] [employer]: Christian Hanley MDBasophils/100 WBC (Bld)1 %Normal0-2Mercy Bethany HospitalComment on above:Performed By: #### APTMUT, AMTHFR #### [facility] [address] [place] [address] [employer]: Melchor Rubin MD #### LUPPRO #### [address] [address] [employer]: Temo Tipton MD [address] [place] [phone] [employer]: Christian Hanley MDEosinophils (Bld) [#/Vol]0.03 10*3/uLNormal 0.00-0.44Mer[facility] Gaylord HospitalComment on above:Performed By: #### APTMUT, AMTHFR #### [facility] [address] [place] [address] [employer]: Melchor Rubin MD #### LUPPRO #### [address] [address] [employer]: Temo Tipton MD [address] [place] [phone] [employer]: PAPO Singhosinophils/100 WBC (Bld)0 %Low1-4[facility] Campuscy Bethany HospitalComment on above:Performed By: #### APTMUT, AMTHFR #### [facility] [address] [place] [address] [employer]: Melchor Rubin MD #### LUPPRO #### [address] [address] [employer]: Temo Tipton MD [address] [place], [place] [address] [employer]: Christian Hanley MDErythrocyte distribution width (RBC) [Ratio]13.1 % Lnlvon23.8-14.4[facility] HospitalComment on above:Performed By: #### APTMUT, AMTHFR #### [facility] [address] [place] [address] [employer]: Melchor Rubin MD #### LUPPRO #### [address] [address] [employer]: Temo Tipton MD [address] [place] [phone] [employer]: Christian Hanley MDHematocrit (Bld) [Volume fraction]46.2 %Normal 36.3-47.1Mfostoria city hospitaly Bethany HospitalComment on above:Performed By: #### APTMUT, AMTHFR #### [facility] [address] [place] [address] [employer]: Melchor Rubin MD #### LUPPRO #### [address] [address] [employer]: Temo Tipton MD [address] [place] [phone] [employer]: Christian Hanley MDHemoglobin (Bld) [Mass/Vol]16.5 g/qKNsvf48.9-15.1 [facility] Tripoint Medical CenterComment on above:Performed By: #### APTMUT, AMTHFR #### [facility] [address] [place] [address] [employer]: Melchor Rubin MD #### LUPPRO #### [facility] [address] [place] [address] [employer]: Temo Tipton MD [address] [place] [phone] [employer]: Christian Hanley MDImmature granulocytes/100 WBC (Bld)1 %Cvrb9GywbbLakehealth Tripoint Medical CenterComment on above:Performed By: #### APTMUT, AMTHFR #### [facility] [address] [place] [address] [employer]: Melchor Rubin MD #### LUPPRO #### [facility] [address] [place] [address] [employer]: Temo Tipton MD [address] [place] [phone] [employer]: Christian Hanley MDLymphocytes (Bld) [#/Vol]1.17 10*3/uLNormal 1.10-3.70L[facility] Tripoint Medical CenterComment on above:Performed By: #### APTMUT, AMTHFR #### [facility] [address] [place] [address] [employer]: Melchor Rubin MD #### LUPPRO #### [facility] [address] [place] [address] [employer]: Temo Tipton MD [address] [place] [phone] [employer]: Christian Hanley MDLymphocytes/100 WBC (Bld)7 %Qvd92-24Xdtra Gaylord HospitalComment on above:Performed By: #### APTMUT, AMTHFR #### [facility] [address] [place] [address] [employer]: Melchor Rubin MD #### LUPPRO #### [facility] [address] [place] [address] [employer]: Tmeo Tipton MD [address] [place], [place] [address] [employer]: KARLY Singh (RBC) [Entitic mass]29.7 zpTwutkh08.2-33.5 [facility] Tripoint Medical CenterComment on above:Performed By: #### APTMUT, AMTHFR #### [facility] [address] [place] [address] [employer]: Melchor Rubin MD #### LUPPRO #### [address] [address] [employer]: Temo Tipton MD [address] [place] [address] [employer]: KARLY SinghC (RBC) [Mass/Vol]35.7 g/gHQseq60.4-34.8L[facility] Tripoint Medical CenterComment on above:Performed By: #### APTMUT, AMTHFR #### [facility] [address] [place] [address] [employer]: Melchor Rubin MD #### LUPPRO #### [address] [address] [employer]: Temo Tipton MD [address] [place], [place] [phone] [employer]: CATALINO Singh (RBC) [Entitic vol]83.1 sAYqfqkz83.6-102.9 [facility] Tripoint Medical CenterComment on above:Performed By: #### APTMUT, AMTHFR #### [facility] [address] [place] [address] [employer]: Melchor Rubin MD #### LUPPRO #### [address] [address] [employer]: Temo Tipton MD [address] [place] [address] [employer]: Christian Hanley MDMonocytes (Bld) [#/Vol]1.20 10*3/uLNormal0.10-1.20 [facility] Medical CenterComment on above:Performed By: #### APTMUT, AMTHFR #### [facility] [address] [place] [address] [employer]: Melchor Rubin MD #### LUPPRO #### [facility] [address] [place] [address] [employer]: Temo Tipton MD [address] [place] [address] [employer]: Christian Hanley MDMonocytes/100 WBC (Bld)7 %Normal3-12L[facility] Tripoint Medical CenterComment on above:Performed By: #### APTMUT, AMTHFR #### [facility] [address] [place] [address] [employer]: Melchor Rubin MD #### LUPPRO #### [address] [address] [employer]: Temo Tipton MD [address] [place] [address] [employer]: Christian Hanley MDNeutrophil (Seg)84 %Bpjl58-07PrrnrLakehealth Tripoint Medical Center Comment on above:Performed By: #### APTMUT, AMTHFR #### [facility] [address] [place] [address] [employer]: Melchor Rubin MD #### LUPPRO #### [facility] [address] [place] [address] [employer]: Temo Tipton MD [address] [place], [place] [address] [employer]: Christian Hanley MDNRBC Automated0.0 per 100 WBCNormal0.0L[facility] Tripoint Medical CenterComment on above:Performed By: #### APTMUT, AMTHFR #### [facility] [address] [place] [address] [employer]: Melchor Rubin MD #### LUPPRO #### [facility] [address] [place] [address] [employer]: Temo Tipton MD [facility] [address] [place] [address] [place] [address] [employer]: Benton Singh mean volume (Bld) [Entitic vol]10.9 fL Normal8.1-13.5L[facility] Tripoint Medical CenterComment on above:Performed By: #### APTMUT, AMTHFR #### [facility] [address] [place] [address] [employer]: Melchor Rubin MD #### LUPPRO #### [facility] [address] [place] [address] [employer]: Temo Tipton MD [address] [address] [employer]: Elvis Singh (Bld) [#/Vol]411 10*3/vZUfukfh095-063 [facility] Medical CenterComment on above:Performed By: #### RAYMONDMUT, AMTHFR #### [facility] [address] [place] [address] [employer]: Melchor Rubin MD #### LUPPRO #### [facility] [address] [place] [address] [employer]: Temo Tipton MD [facility] [address] [place] [address] [place] [address] [employer]: TANIA Singh (Bld) [#/Vol]5.56 10*6/uLHigh3.95-5.11[facility] Medical CenterComment on above:Performed By: #### APTMUT, AMTHFR #### [facility] [address] [place] [address] [employer]: Melchor Rubin MD #### LUPPRO #### [facility] [address] [place] [address] [employer]: Temo Tipton MD [facility] [address] [place] [address] [place] [address] [employer]: Christian Hanley [facility]DELL[facility] (d) [#/Vol]17.3 10*3/uLHigh3.5-11.3Mfostoria city hospitaly Gaylord HospitalComment on above:Performed By: #### RAYMONDMUT, AMTHFR #### [facility] [address] [place] [address] [employer]: Melchor Rubin MD #### LUPPRO #### [facility] [address] [place] [address] [employer]: Temo Tipton MD [facility] [address] [place] [address] [place] [address] [employer]: Christian Hanley [facility] [id number] [Mass/Vol]5.4 g/dLHigh3.5 - 5.2 g/dLBon [facility] HospitalAlbumin/Globulin [Mass ratio]1.4 {ratio}1.0 - 2.5Bon [facility] HospitalALP [Catalytic activity/Vol]97 U/L35 - 104 U/LBon [facility] HospitalALT [Catalytic activity/Vol]216 U/LHigh10 - 35 U/LBon [facility] HospitalAnion gap [Moles/Vol]22 mmol/LHigh9 - 16 mmol/LBon [facility] HospitalAST [Catalytic activity/Vol]90 U/LHigh10 - 35 U/LBon [facility] HospitalBilirubin [Mass/Vol]1.3 mg/dLHigh0.00 - 1.20 mg/dLBon [facility] Calcium [Mass/Vol]10.1 mg/dL8.6 - 10.4 mg/dLBon [facility] HealthChloride [Moles/Vol]84 mmol/LLow98 - 107 mmol/LBon [facility]Louis[facility] HealthCO2 [Moles/Vol]29 mmol/L20 - 31 mmol/LBon [facility]Louis[facility] HealthCreatinine [Mass/Vol]1.9 mg/dLHigh 0.50 - 0.90 mg/dLBon [facility]Louis[facility] HealthEst, Glom Filt Owms49Iyo- PINFBon [facility] HospitalComment on above: These results are [...] that affects renal tubular secretion. Glucose [Mass/Vol]110 mg/lJEehp85 - 99 mg/dLBon [facility] HealthPotassium [Moles/Vol]2.5 mmol/LCritically low3.7 - 5.3 mmol/LBon [facility] Protein [Mass/Vol]9.4 g/dLHigh6.6 - 8.7 g/dLBon [facility] HospitalSodium [Moles/Vol]135 mmol/QFsj333 - 145 mmol/LBon [facility] HealthUrea nitrogen [Mass/Vol]32 mg/dLHigh6 - 20 mg/dLBon [facility] HospitalUrea nitrogen/Creatinine [Mass ratio]17 mg/mg9 - 20Bon [facility] HealthCT Abdomen and Pelvis W contrast Clyde [id number] Study observation (narrative)Bon [facility] Healthp Metabolic Profon [id number] [Mass/Vol]5.4 g/dL High3.5-5.2[facility] Gaylord HospitalComment on above:Performed By: #### KELLEN SERRANO #### [facility] [address] [place] [address] [employer]: Melchor Rubin MD #### LUPPRO #### [facility] [address] [place] [address] [employer]: Temo Tipton MD [facility] [address] [place] [address] Dr. [place], [place] [phone] [employer]: Christian Hanley MDAlbumin/Glob Ratio1.7Cpdtrt7.0-2.5[facility] Medical CenterComment on above:Performed By: #### APTMUT, AMTHFR #### [facility] [address] [place] [address] [employer]: Melchor Rubin MD #### LUPPRO #### [address] [address] [employer]: Temo Tipton MD [address] [place], [place] [address] [employer]: Edil Singhkaline Phos97 U/JDfdkij74-398YlxznLakehealth Tripoint Medical CenterComment on above:Performed By: #### APTMUT, AMTHFR #### [facility] [address] [place] [address] [employer]: Melchor Rubin MD #### LUPPRO #### [address] [address] [employer]: Temo Tipton MD [address] [place], [place] [phone] [employer]: EDWIN Singh [Catalytic activity/Vol]216 U/ZZqld45-43FgrkgLakehealth Tripoint Medical CenterComment on above:Performed By: #### APTMUT, AMTHFR #### [facility] [address] [place] [address] [employer]: Mlechor Rubin MD #### LUPPRO #### [address] [address] [employer]: Temo Tipton MD [facility] [address] [place] [address] Dr. [place], [place] [phone] [employer]: Christian Sturtz, MDAnion gap [Moles/Vol]22 mmol/LHigh9-16[facility] Medical CenterComment on above:Performed By: #### APTMUT, AMTHFR #### [facility] [address] [place] [address] [employer]: Melchor Rubin MD #### LUPPRO #### [facility] [address] [place] [address] [employer]: Temo Tipton MD [facility] [address] [place] [address] Dr. [place], [place] [address] [employer]: Christian Hanley MDAST [Catalytic activity/Vol]90 U/LXksu91-05MrccoLakehealth Tripoint Medical CenterComment on above:Performed By: #### APTMUT, AMTHFR #### [facility] [address] [place] [address] [employer]: Melchor Rubin MD #### LUPPRO #### [address] [address] [employer]: Temo Tipton MD [facility] [address] [place] [address] [place] [address] [employer]: Christian Hanley MDBilirubin [Mass/Vol]1.3 mg/dLHigh0.00-1.20[facility] Medical CenterComment on above:Performed By: #### APTMUT, AMTHFR #### [facility] [address] [place] [address] [employer]: Melchor Rubin MD #### LUPPRO #### [address] [address] [employer]: Temo Tipton MD [facility] [address] [place] [address] [place] [address] [employer]: Christian Hanley MDBUN/CRE Yldcy93Xfubuo6-79Opoeg [facility] Comment on above:Performed By: #### APTMUT, AMTHFR #### [facility] [address] [place] [address] [employer]: Melchor Rubin MD #### LUPPRO #### [address] [address] [employer]: Temo Tipton MD [address] [place], [place] [address] [employer]: JESSICA Singhalcium [Mass/Vol]10.1 mg/dLNormal8.6-10.4[facility] HospitalComment on above:Performed By: #### APTMUT, AMTHFR #### [facility] [address] [place] [address] [employer]: Melchor Rubin MD #### LUPPRO #### [address] [address] [employer]: Temo Tipton MD [address] [place], [place] [address] [employer]: JESSICA Singhhloride [Moles/Vol]84 mmol/BRdf70-235Zkpxa Tiffin HospitalComment on above:Performed By: #### APTMUT, AMTHFR #### [facility] [address] [place] [address] [employer]: Melchor Rubin MD #### LUPPRO #### [address] [address] [employer]: Temo Tipton MD [address] [place], [place] [address] [employer]: JESSICA SinghO2 [Moles/Vol]29 mmol/XLlpfye56-99Luccf [facility]iffin HospitalComment on above:Performed By: #### APTMUT, AMTHFR #### [facility] [address] [place] [address] [employer]: Melchor Rubin MD #### LUPPRO #### [facility] [address] [place] [address] [employer]: Temo Tipton MD [address] [address] [employer]: JESSICA Singhreatinine [Mass/Vol]1.9 mg/dLHigh0.50-0.90[facility] Medical CenterComment on above:Performed By: #### APTMUT, AMTHFR #### [facility] [address] [place] [address] [employer]: Melchor Rubin MD #### LUPPRO #### [address] [address] [employer]: Temo Tipton MD [address] [place] [address] [employer]: Christian Hanley MDGFR/1.73 sq M.predicted among non-blacks MDRD (S/P/Bld) [Vol rate/Area]38 mL/min/{1.73_m2}Low>60[facility] Medical CenterComment on above:Result Comment: These results [...] #### APTMUT, AMTHFR #### [facility] [address] [place] [address] [employer]: Melchor Rubin MD #### LUPPRO #### [facility] [address] [place] [address] [employer]: Temo Tipton MD [address] [address] [employer]: Christian Hanley MDGlucose [Mass/Vol]110 mg/qJLtbn63-77Kfebu Bethany HospitalComment on above:Performed By: #### APTMUT, AMTHFR #### [facility] [address] [place] [address] [employer]: Melchor Rubin MD #### LUPPRO #### [address] [address] [employer]: Temo Tipton MD [address] [place] [phone] [employer]: Christian Hanley MDPotassium [Moles/Vol]2.5 mmol/LCritically low 3.7-5.3MBluffton Hospital HospitalComment on above:Performed By: #### APTMUT, AMTHFR #### [facility] [address] [place] [address] [employer]: Melchor Rubin MD #### LUPPRO #### [address] [address] [employer]: Temo Tipton MD [address] [place] [address] [employer]: Christian Hanley MDProtein [Mass/Vol]9.4 g/dLHigh6.6-8.7[facility] Medical CenterComment on above:Performed By: #### MAGGIE, AMTHFR #### [facility] [address] [place] [address] [employer]: Melchor Rubin MD #### LUPPRO #### [address] [address] [employer]: Temo Tipton MD [address] [place] [address] [employer]: Christian Hanley MDSodium [Moles/Vol]135 mmol/SJqr768-903Apoad [facility]iffin HospitalComment on above:Performed By: #### APTMUT, AMTHFR #### [facility] [address] [place] [address] [employer]: Melchor Rubin MD #### LUPPRO #### [facility] [address] [place] [address] [employer]: Temo Tipton MD [facility] [address] [place] [address] Dr. [place], [place] [address] [employer]: Christian Hanley MDUrea nitrogen [Mass/Vol]32 mg/dL39 Jackson StreetComment on above:Performed By: #### APTMUT, AMTHFR #### [facility] [address] [place] [address] [employer]: Melchor Rubin MD #### LUPPRO #### [facility] [address] [place] [address] [employer] And Entertainment: Temo Tipton MD [facility] [address] [place] [address] Dr. [place], [place] 0350[address] [employer]: Christian Hanley MDEKG 12 LeadOrdered By: Richard Solis on 04-25-2025 Atrial Zrhm125JGKDhr [employer] [facility] Work Phone: P Wsji32qztxtkcMndFreshdesk Work Phone: [phone]-R Fqlfmxfw286 msFreshdesk Work Phone: [phone]-T Rhradfec711 msBon SecCloudacc Work Phone: QRS Rpgbsemt39 msBon [facility] Work Phone: QTc Calculation (Pio)456 msBon SecCloudacc Work Phone: R [id number] [employer] [facility] Work Phone: [phone] Suzt27xdaecrqNfx [facility] HospitalGoldenSUN Work Phone: Ventricular Acik933XCDNjs [employer] [facility] Work Phone: Bon [employer] Work Phone: ekg 12 Leadon 94-28-3685Rtkag tachycardia Rightward axis Nonspecific ST abnormality Abnormal ECG ECG not diagnostic for Acute Coronary Syndrome; consider clinical findings No previous ECGs available Confirmed by Richard Solis ([id number]) on 04/25/2025 8:17:48 PMPIEDMONT ROCKDALERichard Solis MD - 04/25/2025 Sinus tachycardia Rightward axis Nonspecific ST abnormality Abnormal ECG ECG not diagnostic for Acute Coronary Syndrome; consider clinical findings No previous ECGs available Confirmed by Richard Solis ([id number]) on 04/25/2025 8:17:48 PM Bon [facility] HospitalHCG Qualitative, Serumon 02-56-3268EZM ( test) QlNegativeNEGATIVEStafford HospitalComment on above:Specimens with hCG levels near the threshold of the test (25 mIU/mL) may give a negative or indeterminate result. In such cases, another test should be performed with a new specimen in 48-72 hours. If early is suspected clinically in this setting, correlation with quantitative serum b-hCG level is suggested. [facility] MantaHCG Screen, Bloodon 15-03-2284TUN Screen, BloodNegative NormalNEGMercy [facility] on above:Result Comment: Specimens with hCG levels near the threshold of the test (25 mIU/mL) may give a negative or indeterminate result. In such cases, another test should be performed with a new specimen in 48-72 hours. If early is suspected clinically in this setting, correlation with quantitative serum b-hCG level is suggested.Performed By: #### APTMUT, AMTHFR #### [facility] [address] [place] [address] [employer]: Melchor Rubin MD #### LUPPRO #### [facility] [address] [place] [address] [employer]: Temo Tipton MD [facility] [address] [place] [address] [employer]: Christian Hanley MDLipaseon 67-05-1080Zxunpi [Catalytic activity/Vol] 96 U/LHigh13 - 60 U/LBon [facility] HospitalLipase [Catalytic activity/Vol]96 U/DIivf58-85Cqndt [facility]lord HospitalComment on above:Performed By: #### APTMUT, AMTHFR #### [facility] [address] [place] [address] [employer]: Melchor Rubin MD #### LUPPRO #### [facility] [address] [place], [place] 488[address] [employer]: Temo Tipton MD [facility] [address] [place] [address] [employer]: Christian Hanley MDMagnesiumon 50-87-3450Xrewfycziirdpv and review of laboratory resultsAbnormalStafford HospitalMagnesium [Mass/Vol]2.9 mg/dL High1.6 - 2.6 mg/dLBon [facility] Hospital-Sioux FallsMagnesium [Mass/Vol]2.9 mg/dLHigh1.6-2.6Mercy Gaylord HospitalComment on above:Performed By: #### MG #### [facility] [address] [place] [address] [employer]: Christian Hanley MDMicroscopic Urinalysison 58-12-1664Qbwtyhmssr cells LM.HPF (Urine sed) [#/Area]2 TO 5Bon [facility] HospitalRBC LM.HPF (Urine sed) [#/Area]NoneBon [facility] HospitalWBC LM.HPF (Urine sed) [#/Area]0 TO 2 Bon [facility]ours [facility]lingtonNo Panel Informationon 49-44-4980Gkhllizrzmhjpx and review of laboratory resultsAbnormalBon SecQuentin N. [facility]ch[facility] HealthUrinalysison 85-15-6356Yuhdqutvb Ql (U) NegativeNEGATIVEBon SecLouis[facility] Hospital HealthClarity (U)ClearClearBon SecLouisiana Heart Hospital HealthColor (U)YellowYellowBon [facility] HospitalGlucose Test strip (U) [Mass/Vol]NegativeNEGATIVE mg/dLBon [facility] HospitalHemoglobin Auto test strip Ql (U)TRACEAbnormalNEGATIVEBon [facility] HospitalInterpretation and review of laboratory resultsAbnormalBon SecAvita Health System Galion HospitalKetones (U) [Mass/Vol]TRACEAbnormalNEGATIVE mg/dLBon [facility] HospitalLeukocyte esterase Test strip Ql (U)NegativeNEGATIVEBon [facility] HospitalNitrite Ql (U)Negative NEGATIVEBon [facility] HospitalpH (U)6.5 [pH]5.0 - 9.0Bon [facility] Protein (U) [Mass/Vol]NegativeNEGATIVE mg/dLBon [facility] HospitalSpecific gravity (U) [Rel density]Low1.010 - 1.020Bon [facility] HospitalUrobilinogen Qn (U)Normal0.0 - 1.0 EU/dLBon [facility] Urinalysis, Routineon 57-26-1210Gfnamtiyu, SemiQt,UrNegativeNormalMercy HealthComment on above:Performed By: #### TYS #### [facility] [address] [place] [address] [employer]: Bessy Singh, UrineTRACESumma Health Comment on above:Performed By: #### TYS #### [facility] [address] [place] [address] [employer]: JESSICA Singhlarity (ClearNormalCSelect Medical Specialty Hospital [facility] Comment on above:Performed By: #### TYS #### [facility] [address] [place] [address] [employer]: JESSICA Singholor (YellowNoFirelands Regional Medical Center Comment on above:Performed By: #### TYS #### [facility] [address] [place] [address] [employer]: Chrsitian Hanley MDGlucose Ql (U)NegativeNormalNEGMercy Gaylord HospitalComment on above:Performed By: #### TYS #### [facility] [address] [place] [address] [place] [address] [employer]: Christian Hanley MDKetones Ql (U)TRACEAbnormalNEGMercy Bethany HospitalComment on above:Performed By: #### TYS #### [facility] [address] [place] [address] Dr. [place], [place] 0318483 [employer]: Christian Hanley MDLeukocyte esterase Test strip Ql (U)NegativeNormal NEGMercy Gaylord HospitalComment on above:Performed By: #### TYS #### [address] [place] [address] [employer]: Christian Hanley MDNitrite,UrNegativeNormalNEGLakehealth Tripoint Medical Center Comment on above:Performed By: #### TYS #### [facility] [address] [place] [address] [place] [address] [employer]: NAE Singh,Ur6.9Gbdjui3.0-9.0Lakehealth Tripoint Medical CenterComment on above:Performed By: #### TYS #### [address] [place] [address] [employer]: AWILDA Singhrotein Ql (U)NegativeNormalNEGBluffton Hospital HospitalComment on above:Performed By: #### TYS #### [facility] [address] [place] [address] [place] [address] [employer]: FREYA Singhpec. Adel,Ur<1.802Nfp8.010-1.020Mercy Gaylord HospitalComment on above:Performed By: #### TYS #### [facility] [address] [place] [address] Dr. [place], [place] 7904783 [employer]: Christian Hanley MDUrobilinogen,UrNormalNormal0.0-1.0Lakehealth Tripoint Medical CenterComment on above:Performed By: #### TYS #### [facility] [address] [place], [place] 2590383 [employer]: Christian Hanley MDUrinalysis,Microon 52-60-5281Zrauhknucj cells LM Ql (Urine sed)2 TO 8Gfeynm6-76VfxvhLakehealth Tripoint Medical CenterComment on above:Performed By: #### TYS #### [facility] [address] [place] [address] [employer]: Louann Singh RBC'sNoneNormal0-2MSt. Vincent Hospital Comment on above:Performed By: #### TYS #### [facility] [address] [place] [address] [employer]: Louann Singh WBC's0 TO 8Ecikww3-5CdprbLakehealth Tripoint Medical Center Comment on above:Performed By: #### TYS #### [facility] [address] [place], [place] 1387083 [employer]: Christian Hanley MDBADhruv METABOLIC PANELon 88-61-8470Dyekh gap [Moles/Vol]11 mmol/LNormal5-15ProMedica Palo Verde HospitalComment on above: Performed By: #### IJEOMA CMP, 1988-02, , 44451-8, 5643-2, 2157-03 #### [facility] ([id number]) [address] [place] [address] 54530Skyepiz [Mass/Vol]9.4 mg/dLNormal8.5-10.5ProMedica Palo Verde HospitalComment on above:Performed By: #### ANISHA CMP, 1988-02, 78417-4, 20784-7, 5643-2, 2156-6 #### [facility] ([id number]) [address] [place] [address] 49007Rjzevhma [Moles/Vol]104 mmol/KEawstj16-708JtfRvhzvkOhio State University Wexner Medical CenterComment on above:Performed By: #### SYED RAPHAEL, 1988-02, , 97860-1, 5642-2, 2157-03 #### [facility] ([id number]) [address] [place] [address] 54626NM7 [Moles/Vol]24 mmol/TCfwzzs54-17JmjCgaiylDayton VA Medical Center Comment on above:Performed By: #### SYED RAPHAEL, 1988-02, , 43025-2, 5642-2, 2157-03 #### [facility] ([id number]) [address] [place] [address] 86786Pamayglacy [Mass/Vol]0.91 mg/dLNormal0.40-1.00[facility] Medical CenterComment on above:Result Comment: METHOD TRACEABLE TO IDMS STANDARD Performed By: #### SYED RAPHAEL, 1988-02, , 19622-4, 5642-2, 2157-03 #### [facility] ([id number]) [address] [place] [address] 24166DRX/1.73 sq M.predicted among non-blacks MDRD (S/P/Bld) [Vol rate/Area]90 mL/min/{1.73_m2}Normal>=60[facility] Medical CenterComment on above:Result Comment: Reported eGFR is based on the CKD-EPI 2020 equation that does not use a race coefficient.Performed By: #### SYED RAPHAEL, 1988-02, , 94128- 0, 5642-2, 2157-03 #### [facility] ([id number]) [address] [place] [address] 15789Xtesqxs [Mass/Vol]89 mg/wSDmrogh62-52FtbSzitcuOhio State University Wexner Medical Center Comment on above:Performed By: #### SYED RAPHAEL, 1988-02, , 50916-6, 5643-2, 2157-03 #### [facility] ([id number]) [address], [place] [address]Juzyzphus [Moles/Vol]4.2 mmol/LNormal3.5-5.0ProChi St. [facility] [place], TxComment on above:Performed By: #### IJEOMA [facility], 1988-02, , 80134-0, 2, 2157-03 #### [facility] ([id number]) [address] [place] [address] 52729Fklkhw [Moles/Vol]139 mmol/VCsdnqh306-852XylXhmkst [facility] HospitalComment on above:Performed By: #### SYED RAPHAEL, 1988-02, , 50680-0, 5642-11, 2157-03 #### [facility] ([id number]) [address] [place] [address] 58049Uezk nitrogen [Mass/Vol]18 mg/dLNormal5-23ProChi St. [facility] [place], TxComment on above:Performed By: #### SYED RAPHAEL, 1988-02, , 96099-3, 5642-11, 2157-03 #### [facility] ([id number]) [address] [place] [address] 22501THSVNGHJDPGSI, Son 13-10-5804JGTRJCYUOJMDK, S29.6 mcg/mLNormal 10.0-40.0ProChi St. [facility] [place], TxComment on above:Result Comment: ADDITIONAL INFORMATION This test was developed and its performance characteristics determined by [facility] in a manner consistent with CLIA requirements. This test has not been cleared or approved by the U.S. Food and Drug Administration. Test Performed by: [place] [id number] [employer]: Ulysses Juarez Ph.D.; CLIA# [id number] By: #### SYED RAPHAEL, 1988-02, , 99686-9, 56-2, 2157-03 #### [facility] ([id number]) [address] [place] [address] 54612XGRAN METABOLIC PANELon 46-99-7733Tgavo gap [Moles/Vol]9 mmol/L Normal5-15ProChi St[facility] [place], TxComment on above:Performed By: #### SYED RAPHAEL, 1988-02, , 01002-3, 2, 2157-03 #### [facility] ([id number]) [address] [place] [address] 55124Vyeuguh [Mass/Vol]7.8 mg/dLLow8.5-10.5PDayton VA Medical CenterComment on above:Performed By: #### SYED RAPHAEL, 1988-02, , 79470-8, 5642-2, 2157-03 #### [facility] ([id number]) [address] [place] [address] 95734Sjtotjrb [Moles/Vol]98 mmol/SZwkvne00-625LzfVndealChi St. [facility] [place], TxComment on above:Performed By: #### SYED RAPHAEL, 1988-02, , 33734-3, 5642-2, 2157-03 #### [facility] ([id number]) [address] [place] [address] 39692ZT7 [Moles/Vol]27 mmol/MBlwixs58-35YekNbflpqDayton VA Medical Center Comment on above:Performed By: #### SYED RAPHAEL, 1988-02, , 83652-2, 5643-2, 2157-03 #### [facility] ([id number]) [address] [place] [address] 52603Vpozpqrchl [Mass/Vol]1.75 mg/dLHigh0.40-1.00[facility] Medical CenterComment on above:Result Comment: METHOD TRACEABLE TO IDMS STANDARD Performed By: #### SYED RAPHAEL, 1988-02, , 35172-3, 2, 2157-03 #### [facility] ([id number]) [address] [place] [address] 60305AIF/1.73 sq M.predicted among non-blacks MDRD (S/P/Bld) [Vol rate/Area]41 mL/min/{1.73_m2}Low>=60ProChi St. [facility] [place], TxComment on above: Result Comment: Reported eGFR is based on the CKD-EPI 2020 equation that does not use a race coefficient.Performed By: #### SYED RAPHAEL, 1988-02, , 0, 5642-11, 2157-03 #### [facility] ([id number]) [address] [place] [address] 01185Fxgpqda [Mass/Vol]91 mg/mTDdonqp98-33YkqRognbvOhio State University Wexner Medical Center Comment on above:Performed By: #### SYED RAPHAEL, 1988-02, , 59367-8, 5642-11, 2157-03 #### [facility] ([id number]) [address] [place] [address] 27484Vstbahbdl [Moles/Vol]3.1 mmol/LLow3.5-5.0ProChi St[facility] [place], TxComment on above:Performed By: #### SYED RAPHAEL, 1988-02, , 18816-7, 5642-11, 2157-03 #### [facility] ([id number]) [address] [place] [address] 03798Lovgsk [Moles/Vol]134 mmol/AFipgsw287-708NrvZnjtvq [place] HospitalComment on above:Performed By: #### SYED RAPHAEL, 1988-02, , 74316-9, 5643-2, 2157-03 #### [facility] ([id number]) [address] [place] [address] 84152Igga nitrogen [Mass/Vol]21 mg/dLNormal5-23ProSt. Anthony'S Hospitalca Palo Verde HospitalComment on above:Performed By: #### IJEOMA, [facility], 1988-02, , 52114-5, 5643-2, 2157-03 #### [facility] ([id number]) [address] [place] [address] 59741ROJ WITH AUTO DIFFERENTIALon 16-87-5784ETPUAEGCP ABSOLUTE COUNT (10*3/UL) BY AUTOMATED COUNT0.1 10*3/uLNormal0.0-0.2PDayton VA Medical Center Comment on above:Performed By: #### IJEOMA, [facility], 1988-02, , 45829-4, 5643-2, 2157-03 #### [facility] ([id number]) [address] [place] [address] 19433XIGDVHYMG RELATIVE PERCENT BY AUTOMATED COUNT0.5 %Normal [facility] Medical CenterComment on above:Performed By: #### IJEOMA, [facility], 1988-02, , 00208-4, 43-2, 2157-03 #### [facility] ([id number]) [address] [place] [address] 71238SZMZAXJKVWP DIFFERENTIAL TYPEAUTOMATED DIFFERENTIALNormal [facility] CenterComment on above:Performed By: #### IJEOMA, [facility], 1988-02, , 71707-4, 5643-2, 2157-03 #### [facility] ([id number]) [address] [place] [address] 33357Epqirhpiyji (Bld) [#/Vol]0.1 10*3/uLNormal0.0-0.4ProMedica Columbia HospitalComment on above:Performed By: #### CBCSusie, SYED, 1988-02, , 08126-3, 5643-2, 2157-03 #### [facility] ([id number]) [address] [place] [address] 28261SKHZRYARETR RELATIVE PERCENT BY AUTOMATED COUNT0.6 %Normal [facility] CenterComment on above:Performed By: #### IJEOMA, [facility], 1988-02, , 72795-0, 5643-2, 2157-03 #### [facility] ([id number]) [address] [place] [address] 28734Qfkmcjnvswx distribution width (RBC) [Ratio]13.2 %Njetsj19.5-15 [facility] CenterComment on above:Performed By: #### IJEOMA [facility], 1988-02, , 23484-7, 5642-2, 2157-03 #### [facility] ([id number]) [address] [place] [address] 53001Nrxvnlgucy (Bld) [Volume fraction]45.2 %Ukpruu34-13VbxAdhgxaOhio State University Wexner Medical CenterComment on above:Performed By: #### SYED RAPHAEL, 1988-02, , 98962-1, 5642-2, 2157-03 #### [facility] ([id number]) [address] [place] [address] 04300Jyhiciwmsr (Bld) [Mass/Vol]15.7 g/cNUasx14.7-15.5Pro[facility]ica [facility] Verde HospitalComment on above:Performed By: #### CBCA, CMP, 1988-02, , 53338-5, 5643-2, 2157-03 #### [facility] ([id number]) [address] [place] [address] 52778MEJNHOPOPLT ABSOLUTE COUNT (10*3/UL) BY AUTOMATED COUNT2.7 10*3/uLNormal1.0-3.5Pro[facility]ica [facility] Verde HospitalComment on above:Performed By: #### CBCA, CMP, 1988-02, , 21290-3, 5643-2, 2157-03 #### [facility] ([id number]) [address] [place] [address] 68168NBAXEQZPGEV RELATIVE PERCENT BY AUTOMATED COUNT19.3 %Normal ProMHollywood Presbyterian Medical CenterComment on above:Performed By: #### CBCA, CMP, 1988-02, , 00818-0, 5643-2, 2157-03 #### [facility] ([id number]) [address] [place] [address] 84498LIC (RBC) [Entitic mass]29.[address]Bjjucb87-41FanLvalbsChi St[address] [facility] [place], TxComment on above:Performed By: #### CBCA, CMP, 1988-02, , 86198-0, 5643-2, 2157-03 #### [facility] ([id number]) [address] [place] [address] 14775WVJN (RBC) [Mass/Vol]34.8 g/kMFlucgj58-90JreCipbapChi St[address] [facility] [place], TxComment on above:Performed By: #### CBCA, CMP, 1988-02, , 40493-1, 43-2, 2157-03 #### [facility] ([id number]) [address] [place] [address] 92003DSK (RBC) [Entitic vol]84 sYQbyhyp32-601QwlNxzoah [facility] HospitalComment on above:Performed By: #### CBCA, CMP, 1988-02, , 12767-2, 5643-2, 2157-03 #### [facility] ([id number]) [address] [place] [place], [place] [address]QGKLVIWBM ABSOLUTE COUNT (10*3/UL) BY AUTOMATED COUNT1.4 10*3/uLHigh0.0-0.9ProChi St[facility] [place], TxComment on above:Performed By: #### CBCA, CMP, 1988-02, , 42307-9, 5643-2, 2156-6 #### [facility] ([id number]) [address] [place] [address] 68756ROESRGJZE RELATIVE PERCENT BY AUTOMATED COUNT10.3 %Normal [facility] CenterComment on above:Performed By: #### CBCA, CMP, 1988-02, , 06516-2, 5643-2, 2157-03 #### [facility] ([id number]) [address] [place] [address] 64955MIXTIYXNHNP ABSOLUTE COUNT BY AUTOMATED COUNT9.7 10*3/uLHigh 1.5-6.6[facility] Medical CenterComment on above:Performed By: #### CBCA, CMP, 1988-02, , 94140-6, 5643-2, 2157-03 #### [facility] ([id number]) [address] [place] [address] 12968RDIRQPDTWCO RELATIVE PERCENT BY AUTOMATED COUNT69.3 %Normal [facility] CenterComment on above:Performed By: #### CBCA, CMP, 1988-02, , 32231-4, 5643-2, 2157-03 #### [facility] ([id number]) [address] [place] [address] 64478Nqygndnz mean volume (Bld) [Entitic vol]8.2 fLNormal7-12 [facility] CenterComment on above:Performed By: #### CBCA, CMP, 1988-02, , 47876-3, 5643-2, 2156-6 #### [facility] ([id number]) [address] [place] [address] 58211Nzcbxdpna (Bld) [#/Vol]492 10*3/gCGnzx642-090DmiIflzrqChi St[facility] [place], TxComment on above:Performed By: #### ANISHA, CMP, 1988-02, 97638-2, 75346-2, 5643-2, 2157-03 #### [facility] ([id number]) [address] [place] [address] 93458KHG COUNT5.39 X10E12/LHigh3.8-5.2PDayton VA Medical Center Comment on above:Performed By: #### IJEOMA, CMP, 1988-02, , 19129-2, 5643-2, 2157-03 #### [facility] ([id number]) [address] [place] [address] 99409USA (Bld) [#/Vol]14.0 10*3/uLHigh4-11[facility] Comment on above:Performed By: #### IJEOMA, CMP, 1988-02, , 34909-8, 5643-2, 2157-03 #### [facility] ([id number]) [address] [place] [address] 67966AN TOTALon 71-08-7786DOU810 U/ZJhdx76-544ZcoAoilmuChi St[facility] [place], TxComment on above:Performed By: #### CBCA, CMP, 1988-02, , 18366-7, 5643-2, 2157-03 #### [facility] ([id number]) [address] [place] [address] [id number] METABOLIC PANELon 12-60-9602Yrytgzj [Mass/Vol]5.7 g/dLHigh3.2-5.3PDayton VA Medical CenterComment on above:Performed By: #### CBCA, CMP, 1988-02, 38586-2, 66339-7, 5643-2, 2157-03 #### [facility] ([id number]) [address] [place] [address] 01565GYR [Catalytic activity/Vol]85 U/DEsxaur21-552GwxHwepoxChi St[facility] [place], [place]Comment on above:Performed By: #### SYED RAPHAEL, 1988-02, , 83570-3, 5643-2, 2157-03 #### [facility] ([id number]) [address] [place] [address] 07556WKR [Catalytic activity/Vol]32 U/LHigh<=31ProMedMarina Del Rey HospitalComment on above:Performed By: #### SYED RAPHAEL, 1988-02, , 03409-6, 5642-2, 2157-03 #### [facility] ([id number]) [address] [place] [address] 59915Ekjdw gap [Moles/Vol]18 mmol/LHigh5-15ProChi St. [facility] [place], [place]Comment on above:Performed By: #### SYED RAPHAEL, 1988-02, , 70520-4, 5642-2, 2157-03 #### [facility] ([id number]) [address] [place] [address] 26062AZZ [Catalytic activity/Vol]27 U/LNormal<=41ProChi [facility] [place], TxComment on above:Performed By: #### SYED RAPHAEL, 1988-02, , 67066-3, 5643-2, 2157-03 #### [facility] ([id number]) [address] [place] [address] 90966Qdcgcglaa [Mass/Vol]1.1 mg/dLNormal0.3-1.2PDayton VA Medical CenterComment on above:Performed By: #### SYED RAPHAEL, 1988-02, , 36815-2, 5643-2, 2157-03 #### [facility] ([id number]) [address] [place] [address] 67644Zmbjhsz [Mass/Vol]10.1 mg/dLNormal8.5-10.5PDayton VA Medical CenterComment on above:Performed By: #### SYED RAPHAEL, 1988-02, , 78018-1, 5643-2, 2157-03 #### [facility] ([id number]) [address] [place] [address] 48594Wtcgyqzh [Moles/Vol]86 mmol/BLfz64-226TekZyayaiChi St. [facility] [place], TxComment on above:Performed By: #### SYED RAPHAEL, 1988-02, , 75872-1, 2, 2157-03 #### [facility] ([id number]) [address] [place] [address] 37010VS8 [Moles/Vol]30 mmol/YNwkjlh63-40RrxUsebcvDayton VA Medical Center Comment on above:Performed By: #### SYED RAPHAEL, 1988-02, , 60895-7, 56-2, 2157-03 #### [facility] ([id number]) [address] [place] [address] 14017Jirhgwdbse [Mass/Vol]2.38 mg/dLHigh0.40-1.00[facility] Medical CenterComment on above:Result Comment: METHOD TRACEABLE TO IDMS STANDARD Performed By: #### SYED RAPHAEL, 1988-02, , 36197-3, 5643-2, 2157-03 #### [facility] ([id number]) [address] [place] [address] 24966IMV/1.73 sq M.predicted among non-blacks MDRD (S/P/Bld) [Vol rate/Area]29 mL/min/{1.73_m2}Low>=60ProChi [facility] [place], TxComment on above: Result Comment: Reported eGFR is based on the CKD-EPI 2020 equation that does not use a race coefficient.Performed By: #### SYED RAPHAEL, 1988-02, , 17640- 0, 5642-11, 2157-03 #### [facility] ([id number]) [address] [place] [address] 31209Jcwqmeb [Mass/Vol]110 mg/qUJxgc66-16AhoDauwgnOhio State University Wexner Medical Center Comment on above:Performed By: #### SYED RAPHAEL, 1988-02, , 64032-6, 5642-11, 2157-03 #### [facility] ([id number]) [address] [place] [address] 95244Uvkfntcsh [Moles/Vol]2.8 mmol/LLow3.5-5.0ProChi [facility] [place], TxComment on above:Performed By: #### SYED RAPHAEL, 1988-02, , 02714-1, 5642-11, 2157-03 #### [facility] ([id number]) [address] [place] [address] 30028Dalypkn [Mass/Vol]9.9 g/dLHigh6.0-8.0[facility] Comment on above:Performed By: #### SYED RAPHAEL, 1988-02, , 90020-6, 5642-11, 2157-03 #### [facility] ([id number]) [address] [place] [address] 04899Sjrbtj [Moles/Vol]134 mmol/PRpeopi285-225UinTtusva [facility] HospitalComment on above:Performed By: #### SYED RAPHAEL, 1988-02, , 05088-8, 5642-11, 2157-03 #### [facility] ([id number]) [address] [place] [address] 34167Ifgt nitrogen [Mass/Vol]26 mg/dLHigh5-23ProChi [facility] [place], TxComment on above:Performed By: #### IJEOMA CMP, 1988-02, , 50003-4, 5643-2, 2157-03 #### [facility] ([id number]) [address] [place] [address] 97389CLOKMFAGAjv 68-81-5802Cgwbjrmjo [Mass/Vol]2.5 mg/dLNormal 1.8-2.6ProChi [facility] [place], TxComment on above:Performed By: #### CBCA, CMP, 1988-02, , 19607-2, 5643-2, 2157-03 #### [facility] ([id number]) [address] [place] [address] 40148MMLKIYSSA, SERUMon 38-91-0935KUSEG IMFMULZZZ88.3 ng/mLHigh 14.3-65.8ProChi [facility] [place], TxComment on above:Performed By: #### CBCA, CMP, 1988-02, , 46881-4, 5643-2, 2157-03 #### [facility] ([id number]) [address] [place] [address] 98230MRQ WITH AUTO DIFFERENTIALon 10-40-0737YNJONADPU ABSOLUTE COUNT (10*3/UL) BY AUTOMATED COUNT0.1 10*3/uLNormal0.0-0.2PDayton VA Medical Center Comment on above:Performed By: #### CBCA, CMP, 1988-02, , 66958-9, 5643-2, 2157-03 #### [facility] ([id number]) [address] [place] [address] 93100GAKVHIGHV RELATIVE PERCENT BY AUTOMATED COUNT0.5 %Normal ProMHollywood Presbyterian Medical CenterComment on above:Performed By: #### CBCA, CMP, 1988-02, , 37722-5, 5643-2, 2157-03 #### [facility] ([id number]) [address] [place], [place] [address]YXJPEOYJCMZ DIFFERENTIAL TYPEAUTOMATED DIFFERENTIALNormal [facility] Medical CenterComment on above:Performed By: #### SYED RAPHAEL, 1988-02, , 64804-7, 5643-2, 2157-03 #### [facility] ([id number]) [address] [place] [address] 16386Vituiaqlpws (Bld) [#/Vol]0.1 10*3/uLNormal0.0-0.4[facility] Medical CenterComment on above:Performed By: #### SYED RAPHAEL, 1988-02, , 16099-1, 56-2, 2157-03 #### [facility] ([id number]) [address] [place] [address] 06409RWWDTVAQIMZ RELATIVE PERCENT BY AUTOMATED COUNT0.7 %Normal [facility] Medical CenterComment on above:Performed By: #### SYED RAPHAEL, 1988-02, , 49566-5, 5642-2, 2157-03 #### [facility] ([id number]) [address] [place] [address] 60423Fxhiqtnqydt distribution width (RBC) [Ratio]13.0 %Lnkmmp21.5-15 [facility] Medical CenterComment on above:Performed By: #### SYED RAPHAEL, 1988-02, , 68486-1, 5643-2, 2157-03 #### [facility] ([id number]) [address] [place] [address] 28924Gwktegdcqk (Bld) [Volume fraction]37.0 %Lxvxgm41-27HjxXbwtnyChi St. [facility] [place], TxComment on above:Performed By: #### SYED RAPHAEL, 1988-02, , 01106-2, 5643-2, 2157-03 #### [facility] ([id number]) [address] [place] [address] 13764Mbymkcpqws (Bld) [Mass/Vol]12.6 g/zWDwmldy11.7-15.5PDayton VA Medical CenterComment on above:Performed By: #### CBCA, CMP, 1988-02, 35420-5, 60966-9, 5643-2, 2157-03 #### [facility] ([id number]) [address] [place] [address] 33910BAEJQQQXRTK ABSOLUTE COUNT (10*3/UL) BY AUTOMATED COUNT1.4 10*3/uLNormal1.0-3.5PDayton VA Medical CenterComment on above:Performed By: #### CBCA, CMP, 1988-02, , 61920-2, 5643-2, 2157-03 #### [facility] ([id number]) [address] [place] [address] 84341STWAUYGGWVC RELATIVE PERCENT BY AUTOMATED COUNT11.3 %Normal [facility] Medical CenterComment on above:Performed By: #### CBCA, CMP, 1988-02, , 56354-4, 5642-2, 2157-03 #### [facility] ([id number]) [address] [place] [address] 91778BCP (RBC) [Entitic mass]29.0 btTkckln13-80LecRavfmtChi St. [facility] [place], TxComment on above:Performed By: #### CBCA, CMP, 1988-02, , 62954-1, 5643-2, 2157-03 #### [facility] ([id number]) [address] [place] [address] 88491LEII (RBC) [Mass/Vol]34.1 g/gTRjgwcr65-92BbzXawkhmChi St. [facility] [place], TxComment on above:Performed By: #### CBCA, CMP, 1988-02, , 51499-7, 5643-2, 2157-03 #### [facility] ([id number]) [address] [place] [address] 48991KTP (RBC) [Entitic vol]85 kXKxjuzl22-376MtqZgoigq [facility] HospitalComment on above:Performed By: #### CBCA, CMP, 1988-02, 59692-1, 25173-5, 5643-2, 2157-03 #### [facility] ([id number]) [address] [place] [address] 78645RIEDHJVCU ABSOLUTE COUNT (10*3/UL) BY AUTOMATED COUNT0.7 10*3/uLNormal0.0-0.9ProChi [facility] [place], TxComment on above:Performed By: #### CBCA, CMP, 1988-02, , 79659-8, 5643-2, 2157-03 #### [facility] ([id number]) [address] [place] [address] 07416SSUHYPAQN RELATIVE PERCENT BY AUTOMATED COUNT5.5 %Normal [facility] Medical CenterComment on above:Performed By: #### CBCA, CMP, 1988-02, , 34435-7, 43-2, 2157-03 #### [facility] ([id number]) [address] [place] [address] 46569UBAQRLROPRA ABSOLUTE COUNT BY AUTOMATED COUNT10.4 10*3/uLHigh 1.5-6.6ProChi [facility] [place], TxComment on above:Performed By: #### CBCA, CMP, 1988-02, , 92127-4, 5643-2, 2157-03 #### [facility] ([id number]) [address] [place] [address] 27264GOGRZXRMLZI RELATIVE PERCENT BY AUTOMATED COUNT82.0 %Normal [facility] CenterComment on above:Performed By: #### CBCA, CMP, 1988-02, , 13493-5, 5643-2, 2157-03 #### [facility] ([id number]) [address] [place] [address] 76198Fcjixhzu mean volume (Bld) [Entitic vol]7.8 fLNormal7-12 [facility] CenterComment on above:Performed By: #### SYED RAPHAEL, 1988-02, , 53475-2, 5642-2, 2157-03 #### [facility] ([id number]) [address] [place] [address] 51264Iwdkzrwld (Bld) [#/Vol]373 10*3/kZEmsulu347-562XhdTsfmydOhio State University Wexner Medical CenterComment on above:Performed By: #### SYED RAPHAEL, 1988-02, , 70556-0, 5642-2, 2157-03 #### [facility] ([id number]) [address] [place] [address] 71280OHQ COUNT4.35 X10E12/LNormal3.8-5.2PDayton VA Medical Center Comment on above:Performed By: #### SYED RAPHAEL, 1988-02, , 71075-3, 5642-2, 2157-03 #### [facility] ([id number]) [address] [place] [address] 58155RKK (Bld) [#/Vol]12.7 10*3/uLHigh4-11[facility] Comment on above:Performed By: #### IJEOMA, SYED, 1988-02, , 27460-3, 43-2, 2157-03 #### [facility] ([id number]) [address] [place] [address] 08199EPWABBZMQDFVH METABOLIC PANELon 74-85-7978Nnekfcb [Mass/Vol]4.4 g/dLNormal3.2-5.3PDayton VA Medical CenterComment on above:Performed By: #### SYED RAPHAEL, 1988-02, , 07702-3, 5643-2, 2157-03 #### [facility] ([id number]) [address] [place] [address] 50603VEX [Catalytic activity/Vol]71 U/EWxzbos52-342CybSbsdyuChi St[address] [facility] [place], TxComment on above:Performed By: #### SYED RAPHAEL, 1988-02, , 13332-7, 43-2, 2157-03 #### [facility] ([id number]) [address] [place] [address] 10220GIN [Catalytic activity/Vol]24 U/LNormal<=31ProMedMarina Del Rey HospitalComment on above:Performed By: #### SYED RAPHAEL, 1988-02, , 42685-5, 5642-11, 2157-03 #### [facility] ([id number]) [address] [place] [address] 67458Tlglg gap [Moles/Vol]9 mmol/LNormal5-15ProChi [facility] [place], TxComment on above:Performed By: #### SYED RAPHAEL, 1988-02, , 33312-9, 5642-, 2157-03 #### [facility] ([id number]) [address] [place] [address] 40782JSF [Catalytic activity/Vol]20 U/LNormal<=41ProChi [facility] [place], TxComment on above:Performed By: #### SYED RAPHAEL, 1988-02, , 65030-4, 5642-2, 2157-03 #### [facility] ([id number]) [address] [place] [address] 53478Dqvphrcah [Mass/Vol]0.6 mg/dLNormal0.3-1.2PDayton VA Medical CenterComment on above:Performed By: #### SYED RAPHAEL, 1988-02, , 95839-2, 43-2, 2157-03 #### [facility] ([id number]) [address] [place] [address] 50638Uyxxynu [Mass/Vol]9.2 mg/dLNormal8.5-10.5PDayton VA Medical CenterComment on above:Performed By: #### IJEOMA [facility], 1988-02, , 65629-7, 2, 2157-03 #### [facility] ([id number]) [address] [place] [address] 51271Zhgscawm [Moles/Vol]103 mmol/ARhutet74-242GjnSnqatuChi St. [facility] [place], TxComment on above:Performed By: #### SYED RAPHAEL, 1988-02, , 68273-4, 5642-11, 2157-03 #### [facility] ([id number]) [address] [place] [address] 62765AI3 [Moles/Vol]25 mmol/QBdrgqg57-60MarUhmxkjDayton VA Medical Center Comment on above:Performed By: #### SYED RAPHAEL, 1988-02, , 44908-5, 5642-11, 2157-03 #### [facility] ([id number]) [address] [place] [address] 64520Sxxahgfllr [Mass/Vol]0.90 mg/dLNormal0.40-1.00ProChi [facility] [place], TxComment on above:Result Comment: METHOD TRACEABLE TO IDMS STANDARD Performed By: #### SYED RAPHAEL, 1988-02, , 18234-0, 5642-11, 2157-03 #### [facility] ([id number]) [address] [place] [address] 26428YYQD (CKD-EPI) NON-RACE DEPENDENT>^90Normal>=60ProChi [facility] [place], TxComment on above:Result Comment: eGFR not reported due to non- numeric value for Creatinine. Reported eGFR is based on the CKD-EPI 2020 equation that does not use a race coefficient.Performed By: #### SYED RAPHAEL, 1988-02, , 74999- 0, 5642-2, 2157-03 #### [facility] ([id number]) [address] [place] [address] 91084Ijjwzaw [Mass/Vol]97 mg/eEJiyphk90-78VfiDtubjxOhio State University [facility] Center Comment on above:Performed By: #### SYED RAPHAEL, 1988-02, , 89191-7, 5642-11, 2157-03 #### [facility] ([id number]) [address] [place] [address] 89412Adqtjcyri [Moles/Vol]4.0 mmol/LNormal3.5-5.0ProChi [facility] [place], TxComment on above:Performed By: #### SYED RAPHAEL, 1988-02, , 34607-8, 5642-11, 2157-03 #### [facility] ([id number]) [address] [place] [address] 36769Daprrgi [Mass/Vol]8.1 g/dLHigh6.0-8.0[facility] Comment on above:Performed By: #### SYED RAPHAEL, 1988-02, , 03176-9, 5642-11, 2157-03 #### [facility] ([id number]) [address] [place] [address] 70105Wxvpwy [Moles/Vol]137 mmol/PHgoinq378-204JwgMogzgu [facility] HospitalComment on above:Performed By: #### SYED RAPHAEL, 1988-02, , 14714-1, 5642-2, 2157-03 #### [facility] ([id number]) [address] [place], [place] [address]Hkvo nitrogen [Mass/Vol]12 mg/dLNormal5-[facility] CenterComment on above:Performed By: #### SYED RAPHAEL, 1988-02, , 17908-0, 5643-2, 2157-03 #### [facility] ([id number]) [address] [place] [address] 81798NZSOMYgw 51-24-7114Hkdyfw [Catalytic activity/Vol]27 U/LNormal 17-40[facility] CenterComment on above:Performed By: #### SYED RAPHAEL, 1988-02, , 26486-1, 5643-2, 2157-03 #### [facility] ([id number]) [address] [place] [address] 12885LIXI NURSING URINE MACROSCOPIC UAon 45-45-9648QHYXDVFWX KRISTA NegativeNormilNegGreene Memorial HospitalComment on above:Performed By: #### SYED RAPHAEL, 1988-02, , 77315-4, 5643-2, 2157-03 #### [facility] ([id number]) [address] [place] [address] 43209BMIRF/HGB NURNegativeSan JoseNegGreene Memorial Hospital Comment on above:Performed By: #### SYED RAPHAEL, 1988-02, , 06194-4, 5643-2, 2157-03 #### [facility] ([id number]) [address] [place] [address] 51827LTBMOMQ NURNegativeNoalNegGreene Memorial Hospital Comment on above:Performed By: #### SYED RAPHAEL, 1988-02, , 64617-6, 5643-2, 2157-03 #### [facility] ([id number]) [address] [place] [address] 69624XTTVZLM NURNegativeNormalNegativeMercy Health [facility] Hospitalmont [facility] Comment on above:Performed By: #### IJEOMA, SYED, 1988-02, , 68485-2, 5643-2, 2157-03 #### [facility] ([id number]) [address] [place] [address] [place] [address]YQIWISJOP ESTERASE NURNegativeNormalNegGreene Memorial HospitalComment on above:Performed By: #### IJEOMA, SYED, 1988-02, , 35370-8, 43-2, 2157-03 #### [facility] ([id number]) [address] [place] [address] 87930RKLDNTX NURNegativeNormalNegGreene Memorial Hospital Comment on above:Performed By: #### SYED RAPHAEL, 1988-02, , 46404-9, 5642-2, 2157-03 #### [facility] ([id number]) [address] [place] [address] 44520LN NUR7.5Kdfwof3.0, 6.0, 6.5, 7.0, 7.5, 8.0, 8.5, 5.5Pro[facility]ica [facility] Verde HospitalComment on above:Performed By: #### IJEOMA, SYED, 1988-02, , 80672-9, 43-2, 2157-03 #### [facility] ([id number]) [address] [place] [address] [place] [address]NKESYFT NURTraceAbnormalSelect Medical Specialty [facility] [place] Comment on above:Performed By: #### IJEOMA, SYED, 1988-02, , 22320-2, 5643-2, 2157-03 #### [facility] ([id number]) [address] [place] [address] [place] [address]FSNXNAYF GRAVITY NUR1.922Xyvaux4.010, 1.015, 1.020, 1.025 [facility] Verde HospitalComment on above:Performed By: #### SYED RAPHAEL, 1988-02, , 38449-8, 5643-2, 2157-03 #### [facility] ([id number]) [address] [place] [address] 57574ICNUUTWQATYJ NUR0.[address]dL[address] [facility] [place] Comment on above:Performed By: #### SYED RAPHAEL, 1988-02, , 48278-6, 5643-2, 2157-03 #### [facility] ([id number]) [address] [place] [address] 77286LHPY , URINE (NUCG)on 26-49-3540Zkca HCG ( test) Ql (U)NegativeNormalNegativeOhio State University Wexner Medical CenterComment on above: Performed By: #### SYED RAPHAEL, 1988-02, , 90322-3, 56-2, 2157-03 #### [facility] ([id number]) [address] [place] [address] 93198BLRDB METABOLIC PANLon 33-59-1731Tmvdg gap [Moles/Vol]11 mmol/L Normal5-15[facility] Medical CenterComment on above:Performed By: #### SYED RAPHAEL, 1988-02, , 34314-1, 56-2, 2157-03 #### [facility] ([id number]) [address] [place] [address] 55318Deyzezu [Mass/Vol]9.6 mg/dLNormal8.5-10.5Pro[facility] Verde HospitalComment on above:Performed By: #### SYED RAPHAEL, 1988-02, , 11535-4, 5643-2, 2157-03 #### [facility] ([id number]) [address] [place] [address] 76749Xnqaxzuy [Moles/Vol]99 mmol/JRvmtaj32-568UsnEpcrpvOhio State University Wexner Medical CenterComment on above:Performed By: #### SYED RAPHAEL, 1988-02, , 75734-5, 5642-2, 2157-03 #### [facility] ([id number]) [address] [place] [address] 90409EX0 [Moles/Vol]30 mmol/XTofuvd74-19KkhMifbahDayton VA Medical Center Comment on above:Performed By: #### SYED RAPHAEL, 1988-02, , 85480-0, 2, 2157-03 #### [facility] ([id number]) [address] [place] [address] 95280Sdtyryslkv [Mass/Vol]1.21 mg/dLHigh0.40-1.00[facility] Medical CenterComment on above:Result Comment: METHOD TRACEABLE TO IDMS STANDARD Performed By: #### SYED RAPHAEL, 1988-02, , 81422-9, 5642-11, 2157-03 #### [facility] ([id number]) [address] [place] [address] 95473WHH/1.73 sq M.predicted among non-blacks MDRD (S/P/Bld) [Vol rate/Area]64 mL/min/{1.73_m2}Normal>59[facility] Medical CenterComment on above:Result Comment: Reported eGFR is based on the CKD-EPI 2020 equation that does not use a race coefficient.Performed By: #### SYED RAPHAEL, 1988-02, , 01594- 0, 5642-2, 2157-03 #### [facility] ([id number]) [address] [place] [address] 52407Uilwmik [Mass/Vol]81 mg/wLAxsbhi63-55RneOzhlyzOhio State University Wex[facility] Medical Center Comment on above:Performed By: #### SYED RAPHAEL, 1988-02, 72918-8, 56733-2, 5643-2, 2157-03 #### [facility] ([id number]) [address] [place] [address] 85916Voancxxsw [Moles/Vol]4.4 mmol/LNormal3.5-5.0[facility] Medical CenterComment on above:Performed By: #### SYED RAPHAEL, 1988-02, , 93244-7, 5642-2, 2157-03 #### [facility] ([id number]) [address] [place] [address] 20746Sjmwdb [Moles/Vol]140 mmol/VOfnqfs588-838TzoHxmycxOhio State University Wexner Medical CenterComment on above:Performed By: #### SYED RAPHAEL, 1988-02, , 15018-3, 5642-11, 2157-03 #### [facility] ([id number]) [address] [place] [address] 94072Erjx nitrogen [Mass/Vol]18 mg/dLNormal5-23[facility] Medical CenterComment on above:Performed By: #### SYED RAPHAEL, 1988-02, , 44502-2, 5642-11, 2157-03 #### [facility] ([id number]) [address] [place] [address] 96449MV [Catalytic activity/Vol]on 72-28-0511MXH476 U/HEnqo69-084 [facility] Medical CenterComment on above:Performed By: #### SYED RAPHAEL, 1988-02, , 96528-0, 5642-2, 2157-03 #### [facility] ([id number]) [address] [place] [address] 52808VAZ AND AUTO DIFFon 84-55-4928Mwas form neutrophils/100 WBC (Bld)2.0 %NormalProRegency Hospital Cleveland West HospitalComment on above:Performed By: #### SYED RAPHAEL #### [facility] ([id number]) [address], [address] [place], [place] [address]Norfwcpngih (Bld) [#/Vol]0.7 10*3/uLHigh0.0-0.4ProRegency Hospital Cleveland West HospitalComment on above:Performed By: #### CBCA, CMP #### [facility] ([id number]) [address], [address] [place], [place] [address]Owekgyibcps/100 WBC (Bld)6.9 %NormalUniversity Hospitals [facility] Comment on above:Performed By: #### CBCA, CMP #### [facility] ([id number]) [address], [address] [place], [place] [address]Jiixdsyijzs distribution width (RBC) [Ratio]13.6 %Normal 11.5-15.0ProRegency Hospital Cleveland West HospitalComment on above:Performed By: #### CBCA, CMP #### [facility] ([id number]) [address], [address] [place], [place] [address]Maudseszwe (Bld) [Volume fraction]34.6 %Exh23-01EzwZyqpys Toledo HospitalComment on above:Performed By: #### CBCA, CMP #### [facility] ([id number]) [address] [place], [place] [address]Vcpqrrywck (Bld) [Mass/Vol]11.6 g/dLLow11.7-15.5PMercy Health Tiffin Hospital HospitalComment on above:Performed By: #### CBCA, CMP #### [facility] ([id number]) [address], [address] [place], [place] [address]Rdtummbjvvv (Bld) [#/Vol]3.3 10*3/uLNormal1.0-3.5PMercy Health Tiffin Hospital HospitalComment on above:Performed By: #### CBCA, CMP #### [facility] ([id number]) [address], [address] [place], [place] [address]Zsddjbbmerb/100 WBC (Bld)31.7 %NormalSumma Health Wadsworth - Rittman Medical Centerca [facility] Comment on above:Performed By: #### CBCA, CMP #### [facility] ([id number]) [address], [address] [place], [place] [address]WJX (RBC) [Entitic mass]30.3 zqDmepsx24-51JyzOumgjf Hassan HospitalComment on above:Performed By: #### CBCA, CMP #### [facility] ([id number]) [address], [address] [place], [place] [address]PMRI (RBC) [Mass/Vol]33.6 g/tDNxsmut04-33IpmWctadc Hassan HospitalComment on above:Performed By: #### CBCA, CMP #### [facility] ([id number]) [address], [address] [place], [place] [address]BDM (RBC) [Entitic vol]90 hQJppsip78-013UqdKcdtyu [place] HospitalComment on above:Performed By: #### CBCA, CMP #### [facility] ([id number]) [address], [address] [place], [place] [address]Finslvakg (Bld) [#/Vol]1.3 10*3/uLHigh0-0.9Pro[facility]ica [place] HospitalComment on above:Performed By: #### CBCA, CMP #### [facility] ([id number]) [address], [address] [place], [place] [address]Qpjwdxabt/100 WBC (Bld)12.9 %NormalSumma Health Wadsworth - Rittman Medical Centerca [facility] Comment on above:Performed By: #### CBCA, CMP #### [facility] ([id number]) [address], [address] [place], [place] [address]QXBBLUPRI1.0 %NormalProSt. Anthony'S Hospitalca [place] HospitalComment on above: Performed By: #### CBCA, CMP #### [facility] ([id number]) [address], [address] [place], [place] [address]Mvmhuhqcvop (Bld) [#/Vol]4.9 10*3/uLNormal1.5-6.6ProMedica Hassan HospitalComment on above:Performed By: #### CBCA, CMP #### [facility] ([id number]) [address], [address] [place], [place] [address]Qardoovr mean volume (Bld) [Entitic vol]8.1 fLNormal7-12 [facility] Hassan HospitalComment on above:Performed By: #### CBCA, CMP #### [facility] ([id number]) [address], [address] [place], [place] [address]Wbyqpkikd (Bld) [#/Vol]222 10*3/gONyftez083-834HsnIgdlxi Hassan HospitalComment on above:Performed By: #### CBCA, CMP #### [facility] ([id number]) [address], [address] [place], [place] [address]OIP COUNT3.84 X10E12/LNormal3.80-5.20ProReg[facility] Comment on above:Performed By: #### CBCA, CMP #### [facility] ([id number]) [address], [address] [place], [place] [address]YNR morphology finding Nom (Bld)NORMALNormalProMedica [place] HospitalComment on above:Performed By: #### CBCA, CMP #### [facility] ([id number]) [address], [address] [place], [place] [address]RHF MMKQTDXPHX69.5 %NormalProMedica Hassan HospitalComment on above:Performed By: #### CBCA, CMP #### [facility] ([id number]) [address], [address] [place], [place] [address]LAO (Bld) [#/Vol]10.3 10*3/uLNormal4.0-11.0Community Regional Medical CenterComment on above:Performed By: #### CBCA, CMP #### [facility] ([id number]) [address], [address] [place], [place] [address]MWA auto differentialon 73-95-5828Ojfs form neutrophils/100 WBC (Bld)2 %[facility] Medical CenterEosinophils (Bld) [#/Vol]0.7 10*3/uLBallad HealthEosinophils/100 WBC (Bld)6.9 %[facility] Medical CenterErythrocyte distribution width (RBC) [Ratio]13.6 %11.5 - 15.0 %[facility] Hematocrit (Bld) [Volume fraction]34.6 %Low35 - 47 %[facility] Hemoglobin (Bld) [Mass/Vol]11.6 g/dLLow11.7 - 15.5 g/dLMercy Health Springfield Regional Medical Center Interpretation and review of laboratory resultsAbnoUNC Health Rex Lymphocytes (Bld) [#/Vol]3.3 10*3/[facility]illsdale HospitalLymphocytes/100 WBC (Bld)31.7 %[facility] Medical CenterMCH (RBC) [Entitic mass]30.3 pg27 - 34 pg [facility] Medical CenterMCHC (RBC) [Mass/Vol]33.6 g/dL32 - 36 g/dLMercy Health Springfield Regional Medical CenterMCV (RBC) [Entitic vol]90 fL80 - 100 [facility] Monocytes (Bld) [#/Vol]1.3 10*3/uLBallad HealthMonocytes/100 WBC (Bld)12.9 %[facility] Medical CenterMyelocytes/100 WBC (Bld)1 %[facility] Medical CenterNeutrophils (Bld) [#/Vol]4.9 10*3/uLMercy Health Springfield Regional Medical CenterPlatelet mean volume (Bld) [Entitic vol]8.1 fL7 - 12 [facility] HealthcarePlatelets (Bld) [#/Vol]222 10*3/uLProMedica Health SystemPolymorphonuclear cells/100 WBC (Bld) NORMALProMercy Health St. Rita'S Medical Center SystemRBC (Bld) [#/Vol]3.84 10*6/uLProCleveland Clinic Avon Hospitalegmented neutrophils/100 WBC (Bld)45.5 %ProMOhioHealth Mansfield HospitalWBC corrected for nucl RBC Auto (Bld) [#/Vol]10.3PMarion HospitalProMarietta Osteopathic Clinic Totalon 74-04-3260YO [Catalytic activity/Vol]2824 U/LHigh24 - 170 U/LProMedHolzer Medical Center – Jackson [Catalytic activity/Vol]on 25-84-5327BXA5446 U/IAnlm48-905MyoTovuex [place] HospitalComment on above:Performed By: #### CBCA, CMP #### [facility] ([id number]) [address], [address] [place], [place] [address]VZHXXYZPDSRKZ METABOLIC PANELon 50-42-2637Qlohjua [Mass/Vol]3.3 g/dLNormal3.2-5.3PProMedica Fostoria Community HospitalComment on above:Performed By: #### CBCA, CMP #### [facility] ([id number]) [address], [address] [place], [place] [address]MRY [Catalytic activity/Vol]94 U/DKwjzhf87-464KjtPjbegy [place] HospitalComment on above:Performed By: #### CBCA, CMP #### [facility] ([id number]) [address], [address] [place], [place] [address]CIC [Catalytic activity/Vol]274 U/LHigh0-31PProMedica Fostoria Community HospitalComment on above:Performed By: #### CBCA, CMP #### [facility] ([id number]) [address], [address] [place], [place] [address]Ouehp gap [Moles/Vol]6 mmol/LNormal5-15[facility] Comment on above:Performed By: #### CBCA, CMP #### [facility] ([id number]) [address], [address] [place], [place] [address]DVI [Catalytic activity/Vol]107 U/LHigh0-41ProMedica Hassan HospitalComment on above:Performed By: #### IJEOMA, CMP #### [facility] ([id number]) [address], [address] [place], [place] [address]Aftngdkld [Mass/Vol]0.5 mg/dLNormal0.3-1.2ProMedThe MetroHealth System HospitalComment on above:Performed By: #### IJEOMA, CMP #### [facility] ([id number]) [address], [address] [place], [place] [address]Txqnyyw [Mass/Vol]8.6 mg/dLNormal8.5-10.5ProMedThe [facility]Health System HospitalComment on above:Performed By: #### IJEOMA, CMP #### [facility] ([id number]) [address], [address] [place], [place] [address]Rdozcpfi [Moles/Vol]105 mmol/LEqvcos06-474SxzKbprob [place] HospitalComment on above:Performed By: #### IJEOMA, CMP #### [facility] ([id number]) [address], [address] [place], [place] [address]QR1 [Moles/Vol]30 mmol/QOoojka64-77LcxBpqrtl [facility] Comment on above:Performed By: #### IJEOMA, CMP #### [facility] ([id number]) [address], [address] [place], [place] [address]Hjfuvaljqy [Mass/Vol]1.39 mg/dLHigh0.40-1.00ProSt. Anthony'S Hospitalca Hassan HospitalComment on above:Result Comment: METHOD TRACEABLE TO IDMS STANDARD Performed By: #### IJEOMA, CMP #### [facility] ([id number]) [address], [address] [place], [place] [address]TPI/1.73 sq M.predicted among non-blacks MDRD (S/P/Bld) [Vol rate/Area]54 mL/min/{1.73_m2}Low>59ProSamaritan North Health CenterComment on above: Result Comment: Reported eGFR is based on the CKD-EPI 2020 equation that does not use a race coefficient.Performed By: #### IJEOMA, CMP #### [facility] ([id number]) [address], [address] [place], [place] [address]Lbryaxx [Mass/Vol]90 mg/rRDbpuaf82-33CmdMihpxgCommunity Regional Medical Center Comment on above:Performed By: #### IJEOMA, CMP #### [facility] ([id number]) [address], [address] [place], [place] [address]Hwclcooqz [Moles/Vol]4.4 mmol/LNormal3.5-5.0ProSamaritan North Health CenterComment on above:Performed By: #### IJEOMA, CMP #### [facility] ([id number]) [address], [address] [place], [place] [address]Pfcosun [Mass/Vol]5.7 g/dLLow6.0-8.0[facility] Comment on above:Performed By: #### IJEOMA, CMP #### [facility] ([id number]) [address], [address] [place], [place] [address]Qpheow [Moles/Vol]141 mmol/JLjiklo433-230JokTopbov [place] HospitalComment on above:Performed By: #### CBCA, CMP #### [facility] ([id number]) [address], [address] [place], [place] [address]Emxj nitrogen [Mass/Vol]14 mg/dLNormal5-23ProSamaritan North Health CenterComment on above:Performed By: #### CBCA, CMP #### [facility] ([id number]) [address], [address] [place], [place] [address]Mjdcbujgqnnum metabolic panelon 77-70-7472Ibogtua [Mass/Vol]3.3 g/dL3.2 - 5.3 g/dLProDale Medical Center Health SystemALP [Catalytic activity/Vol]94 U/L39 - 130 U/LProMedica Health SystemALT No additional P-5'-P [Catalytic activity/Vol] 274 U/LHigh0 - 31 U/LProMedica Health SystemAnion gap [Moles/Vol]6 mmol/L5 - 15 mmol/LProMedica Health SystemAST [Catalytic activity/Vol]107 U/LHigh0 - 41 U/L [facility] SystemBilirubin [Mass/Vol]0.5 mg/dL0.3 - 1.2 mg/dLProMercy Health St. Rita'S Medical Center SystemCalcium [Mass/Vol]8.6 mg/dL8.5 - 10.5 mg/dLProMercy Health St. Rita'S Medical Center System Chloride [Moles/Vol]105 mmol/L98 - 109 mmol/[facility] Health SystemCO2 [Moles/Vol]30 mmol/L22 - 32 mmol/[facility] SystemCreatinine [Mass/Vol] 1.39 mg/dLHigh0.40 - 1.00 mg/dLSelect [facility] SystemeGFR (CKD-EPI)non-race coeawmrvg00Gwb- PINFPChillicothe VA Medical Center SystemGlucose [Mass/Vol]90 mg/dL65 - 99 mg/dLSelect [facility]ty [facility] SystemPotassium [Moles/Vol]4.4 mmol/L3.5 - 5.0 mmol/L [facility] SystemProtein [Mass/Vol]5.7 g/dLLow6.0 - 8.0 g/dLSelect [facility]ty [facility] SystemSodium [Moles/Vol]141 mmol/L134 - 146 mmol/[facility] System Urea nitrogen [Mass/Vol]14 mg/dL5 - 23 mg/dLSelect Medical Specialty [facility] SystemMAGNESIUMon 08-85-3052Ptacjybvi [Mass/Vol]1.5 mg/dLLow1.8-2.6[facility] Comment on above:Performed By: #### CBCA, CMP #### [facility] ([id number]) [address], [address] [place], [place] [address]Lxjbuxslowl 24-23-7628Svolrclri [Mass/Vol]1.5 mg/dLLow1.8 - 2.6 mg/dLMercy Health Springfield Regional Medical CenterMyoglobin [Mass/Vol]on 41-21-4406FUOOD MYOGLOBIN 353.4 ng/jGBxef14.3-65.8ProSamaritan North Health CenterComment on above:Performed By: #### CBCA, CMP #### [facility] ([id number]) [address], [address] [place], [place] [address]Afhyftxph, serumon 99-03-2543Awsohhrdd [Mass/Vol]353.4 ng/mLHigh 14.3 - 65.8 ng/mLMercy Health Springfield Regional Medical CenterNo Panel Informationon 11-12-2024 Interpretation and review of laboratory resultsAbnormalMercy Health Springfield Regional Medical Center ProMOhioHealth Mansfield HospitalPHOSPHORUSon 59-80-5374Rqwgevsne [Mass/Vol]4.4 mg/dL Normal2.4-4.9ProSamaritan North Health CenterComment on above:Performed By: #### CBCA, CMP #### [facility] ([id number]) [address], [address] [place], [place] [address]Dvxvmnhzwtjs 44-60-7325Neaqfnvrb [Mass/Vol]4.4 mg/dL2.4 - 4.9 mg/dLMercy Health Springfield Regional Medical CenterCBC AND AUTO DIFFon 38-05-0668URVWEDDP BASOPHIL0.1 X10E9/LNormal0.0-0.2PProMedica Fostoria Community HospitalComment on above:Performed By: #### CBCA, CMP #### [facility] ([id number]) [address], [address] [place], [place] [address]MZKCBJCO NEUTROPHIL6.3 X10E9/LNormal1.5-6.6ProSamaritan North Health CenterComment on above:Performed By: #### CBCA, CMP #### [facility] ([id number]) [address], [address] [place], [place] [address]Vbpgodtgx/100 WBC (Bld)0.6 %NormalProRegency Hospital [facility] Comment on above:Performed By: #### CBCA, CMP #### [facility] ([id number]) [address], [address] [place], [place] [address]Oplcmipdogx (Bld) [#/Vol]1.0 10*3/uLHigh0.0-0.4ProRegency Hospital [facility] West HospitalComment on above:Performed By: #### CBCA, CMP #### [facility] ([id number]) [address], [address] [place], [place] [address]Bqsybaedokj/100 WBC (Bld)10.1 %NormalProRegency Hospital [facility] Comment on above:Performed By: #### CBCA, CMP #### [facility] ([id number]) [address], [address] [place], [place] [address]Doutwiftwhz distribution width (RBC) [Ratio]13.7 %Normal 11.5-15.0ProRegency Hospital Cleveland West HospitalComment on above:Performed By: #### CBCA, CMP #### [facility] ([id number]) [address], [address] [place], [place] [address]Wmreayqycp (Bld) [Volume fraction]34.3 %Kwm55-85XuhNmeuzk [place] HospitalComment on above:Performed By: #### CBCA, CMP #### [facility] ([id number]) [address], [address] [place], [place] [address]Ooyyjuptmi (Bld) [Mass/Vol]11.6 g/dLLow11.7-15.5PMercy Health [facility] Hospital HospitalComment on above:Performed By: #### CBCA, CMP #### [facility] ([id number]) [address], [address] [place], [place] [address]Cdvtufttyie (Bld) [#/Vol]1.7 10*3/uLNormal1.0-3.5PMercy Health [facility] Hospital HospitalComment on above:Performed By: #### CBCA, CMP #### [facility] ([id number]) [address], [address] [place], [place] [address]Xfhtyfptkhr/100 WBC (Bld)17.0 %NormalSumma Health Wadsworth - Rittman Medical Centerca [facility] Comment on above:Performed By: #### CBCA, CMP #### [facility] ([id number]) [address], [address] [place], [place] [address]STH (RBC) [Entitic mass]30.5 gjWtqsms92-67ZicFuoeac Hassan HospitalComment on above:Performed By: #### CBCA, CMP #### [facility] ([id number]) [address], [address] [place], [place] [address]TBRH (RBC) [Mass/Vol]34.0 g/dIFlkika78-53CzcUzimkl Hassan HospitalComment on above:Performed By: #### CBCA, CMP #### [facility] ([id number]) [address], [address] [place], [place] [address]DAI (RBC) [Entitic vol]90 nOJbibsu46-458YusCzucle Hassan HospitalComment on above:Performed By: #### CBCA, CMP #### [facility] ([id number]) [address], [address] [place], [place] [address]Bkemoimsq (Bld) [#/Vol]0.8 10*3/uLNormal0-0.9ProMedica Hassan HospitalComment on above:Performed By: #### CBCA, CMP #### [facility] ([id number]) [address] [place], [place] [address]Lbfzbvmfx/100 WBC (Bld)8.3 %NormalSumma Health Wadsworth - Rittman Medical Centerca [facility] Comment on above:Performed By: #### CBCA, CMP #### [facility] ([id number]) [address] [place], [place] [address]Vlibksgfxty/100 WBC (Bld)64.0 %NormalCommunity Regional Medical Center Comment on above:Performed By: #### CBCA, CMP #### [facility] ([id number]) [address], [address] [place] [address]Lxfzftvs mean volume (Bld) [Entitic vol]8.3 fLNormal7-12 Community Regional Medical CenterComment on above:Performed By: #### CBCA, CMP #### [facility] ([id number]) [address], [address] [address]Ixxkbwffz (Bld) [#/Vol]187 10*3/bZKoipjx738-610RkcIbvvfp [place] HospitalComment on above:Performed By: #### CBCA, CMP #### [facility] ([id number]) [address], [address] [address]OZN COUNT3.81 X10E12/LNormal3.80-5.20[facility] Comment on above:Performed By: #### CBCA, CMP #### [facility] ([id number]) [address], [address] [address]ADN (Bld) [#/Vol]9.9 10*3/uLNormal4.0-11.0Community Regional Medical CenterComment on above:Performed By: #### CBCA, CMP #### [facility] ([id number]) [address], [address] [address]KNH auto differentialon 97-95-9072Lnuembosd (Bld) [#/Vol]0.1 10*3/uLProMedica Health SystemBasophils/100 WBC (Bld)0.6 %[facility] CenteredicChippewa City Montevideo Hospital SystemEosinophils (Bld) [#/Vol]1 10*3/uLHighProMedica [facility] System Eosinophils/100 WBC (Bld)10.1 %[facility] CenteredicChippewa City Montevideo Hospital SystemErythrocyte distribution width (RBC) [Ratio]13.7 %11.5 - 15.0 %[facility] SystemHematocrit (Bld) [Volume fraction]34.3 %Low35 - 47 %[facility] Medical CenterHemoglobin (Bld) [Mass/Vol]11.6 g/dLLow11.7 - 15.5 g/dLMercy Health Springfield Regional Medical CenterInterpretation and review of laboratory resultsAbnormalMercy Health Springfield Regional Medical CenterLymphocytes (Bld) [#/Vol]1.7 10*3/uLMercy Health Springfield Regional Medical CenterLymphocytes/100 WBC (Bld)17 %[facility] Medical CenterMCH (RBC) [Entitic mass]30.5 pg27 - 34 [facility] MCHC (RBC) [Mass/Vol]34 g/dL32 - 36 g/dLMercy Health Springfield Regional Medical CenterMCV (RBC) [Entitic vol]90 fL80 - 100 [facility] HealthcareMonocytes (Bld) [#/Vol]0.8 10*3/[facility] HospitalMonocytes/100 WBC (Bld)8.3 %[facility] Regional Medical CenterNeutrophils (Bld) [#/Vol]6.3 10*3/uLMercy Health Springfield Regional Medical CenterNeutrophils/100 WBC (Bld)64 %[facility] Medical CenterPlatelet mean volume (Bld) [Entitic vol]8.3 fL7 - 12 [facility] HealthcarePlatelets (Bld) [#/Vol]187 10*3/[facility] HospitalRBC (Bld) [#/Vol]3.81 10*6/[facility] HospitalWBC corrected for nucl RBC Auto (Bld) [#/Vol]9.9[facility] CK Totalon 35-57-2522EV [Catalytic activity/Vol]6889 U/LHigh24 - 170 U/L [facility] Medical CenterCK [Catalytic activity/Vol]on 58-39-2138WLH4841 U/LHigh 24-170Community Regional Medical CenterComment on above:Performed By: #### CBCA, CMP #### [facility] ([id number]) [address], [address] [place], [place] [address]PRDVIKTSLOVQH METABOLIC PANELon 92-31-5102Gbwqjwl [Mass/Vol]3.3 g/dLNormal3.2-5.3ProMedThe MetroHealth System HospitalComment on above:Performed By: #### CBCA, CMP #### [facility] ([id number]) [address], [address] [place], [place] [address]CGJ [Catalytic activity/Vol]123 U/TYwkmej56-221YnpNciyhx [place] HospitalComment on above:Performed By: #### CBCA, CMP #### [facility] ([id number]) [address], [address] [place], [place] [address]LMD [Catalytic activity/Vol]398 U/LHigh0-31ProMedThe MetroHealth System HospitalComment on above:Performed By: #### CBCA, CMP #### [facility] ([id number]) [address], [address] [place], [place] [address]Mcuto gap [Moles/Vol]7 mmol/LNormal5-15ProRegency Hospital [facility] Comment on above:Performed By: #### CBCA, CMP #### [facility] ([id number]) [address], [address] [place], [place] [address]BCO [Catalytic activity/Vol]179 U/LHigh0-41Pro[facility]ica [place] HospitalComment on above:Performed By: #### CBCA, CMP #### [facility] ([id number]) [address] [place], [place] [address]Abrlyoodr [Mass/Vol]0.5 mg/dLNormal0.3-1.2ProMedThe [facility]Health System HospitalComment on above:Performed By: #### CBCA, CMP #### [facility] ([id number]) [address], [address] [place], [place] [address]Gpazrar [Mass/Vol]8.6 mg/dLNormal8.5-10.5ProMedThe [facility] HospitalComment on above:Performed By: #### CBCA, CMP #### [facility] ([id number]) [address] [place], [place] [address]Xyewsscv [Moles/Vol]104 mmol/ELuvxpd74-046JhzRhrufp [place] HospitalComment on above:Performed By: #### IJEOMA, CMP #### [facility] ([id number]) [address] [place], [place] [address]AO4 [Moles/Vol]29 mmol/WTbnbey73-69BgfXcnvbfProMedica [facility] Comment on above:Performed By: #### IJEOMA, CMP #### [facility] ([id number]) [address] [place], [place] [address]Cxjfftpsnd [Mass/Vol]1.44 mg/dLHigh0.40-1.00ProSamaritan North Health CenterComment on above:Result Comment: METHOD TRACEABLE TO IDMS STANDARD Performed By: #### IJEOMA, CMP #### [facility] ([id number]) [address] [place], [place] [address]LVF/1.73 sq M.predicted among non-blacks MDRD (S/P/Bld) [Vol rate/Area]52 mL/min/{1.73_m2}Low>59ProSamaritan North Health CenterComment on above: Result Comment: Reported eGFR is based on the CKD-EPI 2020 equation that does not use a race coefficient.Performed By: #### IEJOMA, CMP #### [facility] ([id number]) [address] [place], [place] [address]Vnokisi [Mass/Vol]95 mg/sFTeiugu15-67UgyPmxyteCommunity Regional Medical Center Comment on above:Performed By: #### IJEOMA, CMP #### [facility] ([id number]) [address] [place], [place] [address]Pcevrkywg [Moles/Vol]4.3 mmol/LNormal3.5-5.0ProSamaritan North Health CenterComment on above:Performed By: #### IJEOMA, CMP #### [facility] ([id number]) [address] [place] [address]Mswhqvd [Mass/Vol]5.8 g/dLLow6.0-8.0[facility] Comment on above:Performed By: #### IJEOMA, CMP #### [facility] ([id number]) [address] [address]Eiaknf [Moles/Vol]140 mmol/ZSkogev842-819QdoPnapis Toledo HospitalComment on above:Performed By: #### IJEOMA, CMP #### [facility] ([id number]) [address] [address]Stxv nitrogen [Mass/Vol]16 mg/dLNormal5-23ProSamaritan North Health CenterComment on above:Performed By: #### IJEOMA, CMP #### [facility] ([id number]) [address] [address]Lpjamrn.ionized (Bld) [Mass/Vol]on 04-72-1822EooWzqegk Health SystemIONIZED CALCIUM4.7 mg/dLNormal4.5-5.3PProMedica Fostoria Community HospitalComment on above:Performed By: #### IJEOMA, CMP #### [facility] ([id number]) [address] [address]Jcqeqequwkggz metabolic panelon 58-27-1483Uikmkza [Mass/Vol]3.3 g/dL3.2 - 5.3 g/dLProMedica Health SystemALP [Catalytic activity/Vol]123 U/L39 - 130 U/LProMedica Health SystemALT No additional P-5'-P [Catalytic activity/Vol] 398 U/LHigh0 - 31 U/LProMedica Health SystemAnion gap [Moles/Vol]7 mmol/L5 - 15 mmol/LProMedica Health SystemAST [Catalytic activity/Vol]179 U/LHigh0 - 41 U/L ProMedica Health SystemBilirubin [Mass/Vol]0.5 mg/dL0.3 - 1.2 mg/dLSelect [facility] SystemCalcium [Mass/Vol]8.6 mg/dL8.5 - 10.5 mg/dLSelect [facility] Chloride [Moles/Vol]104 mmol/L98 - 109 mmol/LProMednoland hospital dothan Health SystemCO2 [Moles/Vol]29 mmol/L22 - 32 mmol/LPrUniversity Hospitals Conneaut [facility] SystemCreatinine [Mass/Vol] 1.44 mg/dLHigh0.40 - 1.00 mg/dLMercy Health Springfield Regional Medical CentereGFR (CKD-EPI)non-race epatxmmbm87Miz- PINFProMedMercy Health Kings Mills Hospital SystemGlucose [Mass/Vol]95 mg/dL65 - 99 mg/dLMercy Health Springfield Regional Medical CenterPotassium [Moles/Vol]4.3 mmol/L3.5 - 5.0 mmol/L [facility] SystemProtein [Mass/Vol]5.8 g/dLLow6.0 - 8.0 g/dLSelect [facility] SystemSodium [Moles/Vol]140 mmol/L134 - 146 mmol/[facility] Urea nitrogen [Mass/Vol]16 mg/dL5 - 23 mg/dLMercy Health Springfield Regional Medical CenterECG 12 leadon 65-18-0492BUXKSYNTHPJBOYSvxLbpxun Health SystemHolter monitor studyon 82-03-9968MOZQDVXM TRANSCRIBED RESULTSMercy Health Springfield Regional Medical CenterMANUALLY TRANSCRIBED RESULTSMercy Health Springfield Regional Medical CenterIonized calciumon 11-11-2024 Calcium.ionized (Bld) [Mass/Vol]4.7 mg/dL4.5 - 5.3 mg/dLMercy Health Springfield Regional Medical Center MAGNESIUMon 13-94-0325Rulsyhjos [Mass/Vol]1.5 mg/dLLow1.8-2.6Community Regional Medical CenterComment on above:Performed By: #### CBCA, CMP #### [facility] ([id number]) [address] [facility], [address] [place], [place] [address]Fmwzekfoqxx 09-73-9908Edbnjnlru [Mass/Vol]1.5 mg/dLLow1.8 - 2.6 mg/dLMercy Health Springfield Regional Medical CenterMyoglobin [Mass/Vol]on 62-40-5529XWIUP MYOGLOBIN 423.2 ng/kLAmhm18.3-65.8ProSamaritan North Health CenterComment on above:Performed By: #### CBCA, CMP #### [facility] ([id number]) [address] [place] [address], [address] [place], [place] [address]Ucxsibfyw, serumon 59-96-4956Zlshbrdas [Mass/Vol]423.2 ng/mLHigh 14.3 - 65.8 ng/mLMercy Health Springfield Regional Medical CenterNo Panel Informationon 11-11-2024 Interpretation and review of laboratory resultsAbnormalAurora Valley View Medical Center SystemInterpretation and review of laboratory resultsAbnoGood Shepherd Specialty HospitalPHOSPHORUSon 99-92-0181Rosyaudqh [Mass/Vol]4.1 mg/dLNormal2.4-4.9ProSamaritan North Health CenterComment on above: Performed By: #### CBCA, CMP #### [facility] ([id number]) [address] [place] [address], [address] [place], [place] [address]Nkonrqaswngf 15-71-0555Zuiqyxprk [Mass/Vol]4.1 mg/dL2.4 - 4.9 mg/dLMercy Health Springfield Regional Medical CenterRESP PATHOGENS/PQRV-EiC-6kq 21-53-9340Jszmrtxgxae pathogens DNA and RNA panel JACKSON+non-probe (Nph)SPECIMEN [...] a patient with possible respiratory tract infection.NormalProMedica Galion HospitalComment on above:Performed By: #### CBCA, CMP #### [facility] ([id number]) [address] [place] [address], [address] [place], [place] [address]Fohjznnsqzx pathogens DNA and RNA panel JACKSON+non-probe (Nph)on 82-05-8185Ztufftvayi DNA JACKSON+non-probe Ql (Nph)Not detectedNot Detected^Not DetectedMercy Health Springfield Regional Medical CenterB. parapertussis SY2699 DNA JACKSON+non-probe Ql (Nph)Not detectedNot Detected^Not DetectedMercy Health Springfield Regional Medical CenterB. pertussis toxin promoter region JACKSON+non-probe Ql (Nph)Not detectedNot Detected^Not DetectedMercy Health Springfield Regional Medical CenterC. pneumoniae DNA JACKSON+non-probe Ql (Nph)Not detectedNot Detected^Not DetectedMercy Health Springfield Regional Medical CenterFLUAV H1 2009 pand RNA JACKSON+non-probe Ql (Nph)DetectedAbnormalNot Detected^Not DetectedMercy Health Springfield Regional Medical CenterFLUBV RNA JACKSON+non-probe Ql (Nph)Not detectedNot Detected^Not Detected [facility] Medical CenterHCoV 229E RNA JACKSON+non-probe Ql (Nph)Not detectedNot Detected^Not DetectedMercy Health Springfield Regional Medical CenterHCoV HKU1 RNA JACKSON+non-probe Ql (Nph) Not detectedNot Detected^Not DetectedMercy Health Springfield Regional Medical CenterHCoV NL63 RNA JACKSON+non-probe Ql (Nph)Not detectedNot Detected^Not DetectedMercy Health Springfield Regional Medical CenterHCoV OC43 RNA JACKSON+non-probe Ql (Nph)Not detectedNot Detected^Not Detected [facility] Medical CenterhMPV RNA JACKSON+non-probe Ql (Nph)Not detectedNot Detected^Not DetectedMercy Health Springfield Regional Medical CenterInterpretation and review of laboratory resultsAbnormUpper Valley Medical CenterM. pneumoniae DNA JACKSON+non-probe Ql (Nph)Not detectedNot Detected^Not DetectedMercy Health Springfield Regional Medical Center Parainfluenza virus 1 RNA JACKSON+non-probe Ql (Nph)Not detectedNot Detected^Not DetectedMercy Health Springfield Regional Medical CenterParainfluenza virus 2 RNA JACKSON+non-probe Ql (Nph) Not detectedNot Detected^Not DetectedMercy Health Springfield Regional Medical CenterParainfluenza virus 3 RNA JACKSON+non-probe Ql (Nph)Not detectedNot Detected^Not DetectedMercy Health Springfield Regional Medical CenterParainfluenza virus 4 RNA JACKSON+non-probe Ql (Nph)Not detectedNot Detected^Not DetectedMercy Health Springfield Regional Medical CenterRhinovirus+Enterovirus RNA JACKSON+non- probe Ql (Nph)Not detectedNot Detected^Not DetectedMercy Health Springfield Regional Medical CenterRSV RNA JACKSON+non-probe Ql (Nph)Not detectedNot Detected^Not DetectedAsheville Specialty HospitalARS-CoV-2 (COVID-19) RNA JACKSON+probe Ql (Resp)Not detectedNot Detected^Not DetectedAsheville Specialty Hospitalpecimen source Nom (Body fld)NASO PHARYNX [facility] Hospital of PhiladelphiaXR CHEST 1 VWon 02-39-4122GQ CHEST 1 VWXR CHEST 1 VW XR CHEST 1 VW IMPRESSION: Clinical Information: fever/congestion Comparison: 11/04/24. * Negative chest x-ray. Finalized by Rajendra Muro MD on 11/11/2024 4:18 PMNormalCommunity Regional Medical CenterXR Chest Single viewon 36-75-1075AIIDVVPACMAdxJixaqu Health System Radiology Study observation (narrative)[facility] Medical CenterXR Chest Single viewOrdered By: Rajendra Muro on 01-89-7944UhkKqgqkdMercy Health Springfield Regional Medical Center Work Phone: cbc AND AUTO DIFFon 63-70-1583Cnspfnjlqmi (Bld) [#/Vol]1.1 10*3/uLHigh0.0-0.4Mercy Health Springfield Regional Medical CenterComment on above:Performed By: #### CBCA, CMP #### [facility] ([id number]) [address] [address]Srwvpuufjlr distribution width (RBC) [Ratio]13.6 %Normal 11.5-15.0Mercy Health Springfield Regional Medical CenterComment on above:Performed By: #### CBCA, CMP #### [facility] ([id number]) [address] [address]Vcdvuibvlg (Bld) [Volume fraction]37.4 %Lpayom39-53GieHnsymd Health SystemComment on above:Performed By: #### CBCA, CMP #### [facility] ([id number]) [address] [address]Nejcgbmbjv (Bld) [Mass/Vol]12.4 g/vAAwayed47.7-15.5PChillicothe VA Medical Center SystemComment on above:Performed By: #### CBCA, CMP #### [facility] ([id number]) [address], [address] [place], [place] [address]Lanvgxsirek (Bld) [#/Vol]1.1 10*3/uLNormal1.0-3.5PChillicothe VA Medical Center SystemComment on above:Performed By: #### CBCA, CMP #### [facility] ([id number]) [address], [address] [place], [place] [address]UEY (RBC) [Entitic mass]29.8 xySyqnff65-18DgnTxvamd Health SystemComment on above:Performed By: #### CBCA, CMP #### [facility] ([id number]) [address], [address] [place], [place] [address]NDQ (RBC) [Entitic vol]90 zSJboibi12-596TlaBnxsze Health System Comment on above:Performed By: #### CBCA, CMP #### [facility] ([id number]) [address], [address] [place], [place] [address]Atfdtafbz (Bld) [#/Vol]0.7 10*3/uLNormal0-0.9[facility] SystemComment on above:Performed By: #### CBCA, CMP #### [facility] ([id number]) [address], [address] [place], [place] [address]Sklcmiflfoa (Bld) [#/Vol]7.9 10*3/uLHigh1.5-6.6[facility] SystemComment on above:Performed By: #### CBCA, CMP #### [facility] ([id number]) [address], [address] [place], [place] [address]Hglhjpzd mean volume (Bld) [Entitic vol]8.1 fLNormal7-12 ProMLakeWood Health Center SystemComment on above:Performed By: #### CBCA, CMP #### [facility] ([id number]) [address], [address] [place], [place] [address]Twkumwkns (Bld) [#/Vol]195 10*3/tZFcccwi917-834ZgiWijrep Health SystemComment on above:Performed By: #### CBCA, CMP #### [facility] ([id number]) [address], [address] [place], [place] [address]Iwbt form neutrophils/100 WBC (Bld)1.0 %[facility] HospitalComment on above:Performed By: #### CBCA, CMP #### [facility] ([id number]) [address], [address] [place], [place] [address]Banxyqdqavi/100 WBC (Bld)10.0 %[facility] Comment on above:Performed By: #### CBCA, CMP #### [facility] ([id number]) [address], [address] [place], [place] [address]Emulnfginrh/100 WBC (Bld)10.0 %[facility] Comment on above:Performed By: #### CBCA, CMP #### [facility] ([id number]) [address], [address] [place], [place] [address]LWXN (RBC) [Mass/Vol]33.0 g/jCUralyf51-75NrjXjxhyyCommunity Regional Medical CenterComment on above:Performed By: #### CBCA, CMP #### [facility] ([id number]) [address], [address] [place], [place] [address]Ugiuqanlfxuzid/100 WBC (Bld)2.0 %NormalCommunity Regional Medical Center Comment on above:Performed By: #### CBCA, CMP #### [facility] ([id number]) [address], [address] [place], [place] [address]Sepsrttzs/100 WBC (Bld)6.0 %NormalCommunity Regional Medical Center Comment on above:Performed By: #### CBCA, CMP #### [facility] ([id number]) [address], [address] [place], [place] [address]VTERRXCHO1.0 %NormalProSt. Anthony'S Hospitalca Bean Station HospitalComment on above: Performed By: #### CBCA, CMP #### [facility] ([id number]) [address], [address] [place], [place] [address]PEC COUNT4.15 X10E12/LNormal3.80-5.20ProReg[facility] Comment on above:Performed By: #### CBCA, CMP #### [facility] ([id number]) [address], [address] [place], [place] [address]QXY morphology finding Nom (Bld)NORMALNormalProRegency Hospital Cleveland West HospitalComment on above:Performed By: #### CBCA, CMP #### [facility] ([id number]) [address], [address] [place], [place] [address]ZQB UFWGXNJCXA00.0 %NormalProRegency Hospital Cleveland West HospitalComment on above:Performed By: #### CBCA, CMP #### [facility] ([id number]) [address], [address] [place], [place] [address]OSJ (Bld) [#/Vol]11.3 10*3/uLHigh4.0-11.0ProSamaritan North Health CenterComment on above:Performed By: #### CBCA, CMP #### [facility] ([id number]) [address], [address] [place], [place] [address]AFJ auto differentialon 73-24-8011Dkvk form neutrophils/100 WBC (Bld)1 %[facility] Centeredica [facility] SystemEosinophils/100 WBC (Bld)10 %ProMedicChippewa City Montevideo Hospital SystemInterpretation and review of laboratory resultsAbnormalProMercy Health St. Rita'S Medical Center SystemLymphocytes/100 WBC (Bld)10 %[facility] Medical CenterMCHC (RBC) [Mass/Vol] 33 g/dL32 - 36 g/dLProCoshocton Regional Medical CenterMetamyelocytes/100 WBC (Bld)2 % [facility] Centeredica Health SystemMonocytes/100 WBC (Bld)6 %[facility] Myelocytes/100 WBC (Bld)3 %[facility] CenterPolymorphonuclear cells/100 WBC (Bld)NORMALMercy Health Springfield Regional Medical CenterRBC (Bld) [#/Vol]4.15 10*6/uLAsheville Specialty Hospitalegmented neutrophils/100 WBC (Bld)68 %[facility] Medical CenterWBC corrected for nucl RBC Auto (Bld) [#/Vol]11.3HighPrime Healthcare ServicesCK Totalon 26-83-7233OR [Catalytic activity/Vol]810[address] U/L High24 - 170 U/LPrOhioHealth Riverside Methodist Hospital [Catalytic activity/Vol]on 11-10-2024 Interpretation and review of laboratory resultsAbnormalPrime Healthcare ServicesCPK16525 U/ELttd43-390AzxZqpsnpCommunity Regional Medical CenterComment on above:Performed By: #### CBCA, CMP #### [facility] ([id number]) [address], [address] [place], [place] [address]ZISSWAWXBFFWG METABOLIC PANELon 22-05-0263Bvofdis [Mass/Vol]3.7 g/dLNormal3.2-5.3PMarion HospitalComment on above:Performed By: #### CBCA, CMP #### [facility] ([id number]) [address], [address] [place], [place] [address]MEW [Catalytic activity/Vol]155 U/OMwhz70-486BopCnkmhyMercy Health Springfield Regional Medical CenterComment on above:Performed By: #### CBCA, CMP #### [facility] ([id number]) [address], [address] [place], [place] [address]Dkbfj gap [Moles/Vol]7 mmol/LNormal5-15[facility] Comment on above:Performed By: #### CBCA, CMP #### [facility] ([id number]) [address], [address] [place], [place] [address]UFV [Catalytic activity/Vol]389 U/LHigh0-41[facility] SystemComment on above:Performed By: #### CBCA, CMP #### [facility] ([id number]) [address], [address] [place], [place] [address]Ypftrqwpj [Mass/Vol]0.8 mg/dLNormal0.3-1.2PChillicothe VA Medical Center SystemComment on above:Performed By: #### CBCA, CMP #### [facility] ([id number]) [address], [address] [place], [place] [address]Xlxjgbf [Mass/Vol]8.5 mg/dLNormal8.5-10.5PChillicothe VA Medical Center System Comment on above:Performed By: #### CBCA, CMP #### [facility] ([id number]) [address], [address] [place], [place] [address]Jwqlvvbe [Moles/Vol]101 mmol/HWllcql17-223DycLiybss Health SystemComment on above:Performed By: #### CBCA, CMP #### [facility] ([id number]) [address], [address] [place], [place] [address]AK5 [Moles/Vol]31 mmol/HCphpez84-89RdgGlcxgaMarion Hospital Comment on above:Performed By: #### CBCA, CMP #### [facility] ([id number]) [address], [address] [place], [place] [address]Zdxpdlnden [Mass/Vol]1.48 mg/dLHigh0.40-1.00[facility] SystemComment on above:Result Comment: METHOD TRACEABLE TO IDMS STANDARD Performed By: #### CBCA, CMP #### [facility] ([id number]) [address], [address] [place], [place] [address]Fpqdasy [Mass/Vol]92 mg/uBDnxfrg14-35JjyZallorMercy Health Springfield Regional Medical Center Comment on above:Performed By: #### CBCA, CMP #### [facility] ([id number]) [address], [address] [place], [place] [address]Jbzjwthmw [Moles/Vol]4.2 mmol/LNormal3.5-5.0Mer[facility] Regional Medical CenterComment on above:Performed By: #### IJEOMA, CMP #### [facility] ([id number]) [address] [address]Sfhmkmt [Mass/Vol]6.3 g/dLNormal6.0-8.0[facility] Comment on above:Performed By: #### CBCSusie, CMP #### [facility] ([id number]) [address] [address]Jjszkz [Moles/Vol]139 mmol/VXzinao287-265PnjIqozzd Health System Comment on above:Performed By: #### IJEOMA, CMP #### [facility] ([id number]) [address] [address]Zlws nitrogen [Mass/Vol]16 mg/dLNormal5-23[facility] SystemComment on above:Performed By: #### IJEOMA, CMP #### [facility] ([id number]) [address] [address]PLE [Catalytic activity/Vol]646 U/LHigh0-31ProMedica Galion HospitalComment on above:Performed By: #### CBCA, CMP #### [facility] ([id number]) [address] [address]OFL/1.73 sq M.predicted among non-blacks MDRD (S/P/Bld) [Vol rate/Area]50 mL/min/{1.73_m2}Low>59ProSamaritan North Health CenterComment on above: Result Comment: Reported eGFR is based on the CKD-EPI 2020 equation that does not use a race coefficient.Performed By: #### CBCA, CMP #### [facility] ([id number]) [address] [address]Tnniwrh.ionized (Bld) [Mass/Vol]on 98-79-3498TpnZuhlnzMercy Health Springfield Regional Medical CenterIONIZED CALCIUM4.6 mg/dLNormal4.5-5.3PProMedica Fostoria Community HospitalComment on above:Performed By: #### CBCA, CMP #### [facility] ([id number]) [address] [facility], [address] [place], [place] [address]Pwthdcxgnhqdj metabolic panelon 01-72-9969CQM No additional P-5'-P [Catalytic activity/Vol]646 U/LHigh0 - 31 U/LPrAdena Regional Medical CentereGFR (CKD-EPI)non-race zelouhozb23Pey- PINBucyrus Community Hospital SystemInterpretation and review of laboratory resultsAbnoUNC Health RexIonized calciumon 27-56-0621Mggmafh.ionized (Bld) [Mass/Vol]4.6 mg/dL4.5 - 5.3 mg/dLMercy Health Springfield Regional Medical CenterLaboratory - Chemistry and Chemistry - challengeon 11-10-2024 Magnesium [Mass/Vol]1.9 mg/dLNormal1.8-2.6Mer[facility] Regional Medical CenterComment on above:Performed By: #### CBCA, CMP #### [facility] ([id number]) [address] [facility] [facility], [address] [address]Szkglwmdt [Mass/Vol]4.3 mg/dLNormal2.4-4.9[facility] Medical CenterComment on above:Performed By: #### CBCA, CMP #### [facility] ([id number]) [address] [place] [address], [address] [place], [place] [address]Dtashakeq [Mass/Vol]on 00-86-0753Zaphugefwbmyxw and review of laboratory resultsAbAscension SE Wisconsin Hospital Wheaton– Elmbrook CampusERUM DNKMHHUMP1903.9 ng/yLVmfc57.3-65.8Community Regional Medical CenterComment on above: Performed By: #### CBCA, CMP #### [facility] ([id number]) [address] [facility], [address] [place], [place] [address]Fupyrlbnr, serumon 75-97-5789Asakilkff [Mass/Vol]1008.9 ng/mL High14.3 - 65.8 ng/mLMercy Health Springfield Regional Medical CenterNo Panel Informationon 11-10-2024 ProMedicEast Ohio Regional HospitalBILIRUBIN,DIRECTon 83-44-2679Fzevaikja.direct [Mass/Vol] 0.9 mg/dLHigh0.0-0.4Community Regional Medical CenterComment on above:Performed By: #### CBCA, CMP, 48489-9, 17513-5, TSHR, 45311-0, 2777-1, 2639-3, 2157-6, 3024-7 #### [facility] ([id number]) [address] [place] [address], [address] [place], [place] [address]Fnunxiknc, directon 22-15-6415Ooacyjprf.direct [Mass/Vol]0.9 mg/dLHigh0.0 - 0.4 mg/dLProCoshocton Regional Medical CenterBilirubin.direct [Mass/Vol]on 65-83-2846Djhaojbmttfukr and review of laboratory resultsAbnormalProCoshocton Regional Medical CenterProCoshocton Regional Medical CenterCBC AND AUTO DIFFon 36-18-4773HPWSHJAO BASOPHIL0.0 X10E9/LNormal0.0-0.2PProMedica Fostoria Community HospitalComment on above: Performed By: #### CBCA, CMP, 76095-4, 46851-3, TSHR, 85384-3, 2777-1, 2639-3, 2157-6, 3024-7 #### [facility] ([id number]) [address] [place] [address], [address] [place], [place] [address]WIGVAVAS NEUTROPHIL8.0 X10E9/LHigh1.5-6.6Community Regional Medical CenterComment on above:Performed By: #### CBCA, CMP, 43294-3, 77812-8, TSHR, 15662-3, 2777-1, 2639-3, 2157-6, 3024-7 #### [facility] ([id number]) [address] [place], [place] [address]Qipqoremx/100 WBC (Bld)0.2 %NormalCommunity Regional Medical Center Comment on above:Performed By: #### CBCA, CMP, 63360-4, 67923-9, TSHR, 04265-1, 2777-1, 2639-3, 2157-6, 3024-7 #### [facility] ([id number]) [address] [place], [place] [address]Gwkcooibxau (Bld) [#/Vol]0.2 10*3/uLNormal0.0-0.4ProSamaritan North Health CenterComment on above:Performed By: #### CBCA, CMP, 70569-3, 44496-7, TSHR, 67326-8, 2777-1, 2639-3, 2157-6, 3024-7 #### [facility] ([id number]) [address] [place], [place] [address]Lwmvbvkysgw/100 WBC (Bld)2.0 %NormalCommunity Regional Medical Center Comment on above:Performed By: #### CBCA, CMP, 19029-0, 20843-1, TSHR, 79445-1, 2777-1, 2639-3, 2157-6, 3024-7 #### [facility] ([id number]) [address] [place], [place] [address]Hxuuswepkzy distribution width (RBC) [Ratio]13.4 %Normal 11.5-15.0ProSamaritan North Health CenterComment on above:Performed By: #### CBCA, CMP, 34833-6, 79601-8, TSHR, 46235-9, 2777-1, 2639-3, 2157-6, 3024-7 #### [facility] ([id number]) [address] [place], [place] [address]Tmhviyankk (Bld) [Volume fraction]34.5 %Keg05-71YmwOrdifo Toledo HospitalComment on above:Performed By: #### CBCA, CMP, 88194-9, 37507-3, TSHR, 72646-9, 2777-1, 2639-3, 2157-6, 3024-7 #### [facility] ([id number]) [address] [place], [place] [address]Pbpeyqkuwk (Bld) [Mass/Vol]12.0 g/jRCgwopq66.7-15.5ProMedUniversity Hospitals [facility]itan Medical CenterComment on above:Performed By: #### CBCA, CMP, 55297-3, 05266-1, TSHR, 12059-4, 2777-1, 2639-3, 2157-6, 3024-7 #### [facility] ([id number]) [address], [address] [place], [place] [address]Vgslzzidvzd (Bld) [#/Vol]1.3 10*3/uLNormal1.0-3.5PProMedica Fostoria Community HospitalComment on above:Performed By: #### CBCA, CMP, 07055-8, 46389-4, TSHR, 26098-8, 2777-1, 2639-3, 2157-6, 3024-7 #### [facility] ([id number]) [address], [address] [place], [place] [address]Mzkfeckiafw/100 WBC (Bld)12.7 %NormalProRegency Hospital [facility] Comment on above:Performed By: #### CBCA, CMP, 40339-5, 84618-0, TSHR, 98200-1, 2777-1, 2639-3, 2157-6, 3024-7 #### [facility] ([id number]) [address], [address] [place], [place] [address]AYS (RBC) [Entitic mass]31.3 srDdkrkn36-70SppAxnrvo [place] HospitalComment on above:Performed By: #### CBCA, CMP, 45830-8, 72025-4, TSHR, 95408-5, 2777-1, 2639-3, 2157-6, 3024-7 #### [facility] ([id number]) [address], [address] [place], [place] [address]LQJZ (RBC) [Mass/Vol]34.8 g/sWEklzjo08-40ZxkSqjxvn [place] HospitalComment on above:Performed By: #### CBCA, CMP, 39846-6, 13689-2, TSHR, 56094-9, 2777-1, 2639-3, 2157-6, 3024-7 #### [facility] ([id number]) [address], [address] [place], [place] [address]LTV (RBC) [Entitic vol]90 zVVauhnf33-792PbbLfagoi [place] HospitalComment on above:Performed By: #### CBCA, CMP, 00159-1, 89318-0, TSHR, 55995-8, 2777-1, 2639-3, 2157-6, 3024-7 #### [facility] ([id number]) [address], [address] [place], [place] [address]Lxfokwnug (Bld) [#/Vol]0.8 10*3/uLNormal0-0.9ProSamaritan North Health CenterComment on above:Performed By: #### CBCA, CMP, 40319-7, 41473-2, TSHR, 56229-7, 2777-1, 2639-3, 2157-6, 3024-7 #### [facility] ([id number]) [address], [address] [place], [place] [address]Cyosgdzzv/100 WBC (Bld)7.7 %NormalProSamaritan North Health Center Comment on above:Performed By: #### CBCA, CMP, 99490-2, 21117-4, TSHR, 48529-3, 2777-1, 2639-3, 2157-6, 3024-7 #### [facility] ([id number]) [address], [address] [place], [place] [address]Uvdsiorgflf/100 WBC (Bld)77.4 %NormalCommunity Regional Medical Center Comment on above:Performed By: #### CBCA, CMP, 90394-9, 18560-1, TSHR, 08976-6, 2777-1, 2639-3, 2157-6, 3023-7 #### [facility] ([id number]) [address], [address] [place], [place] [address]Guuwhjfv mean volume (Bld) [Entitic vol]8.2 fLNormal7-12 [facility] Medical CenterComment on above:Performed By: #### CBCA, CMP, 23772-1, 83337-1, TSHR, 21707-0, 2777-1, 2639-3, 2157-6, 3023- #### [facility] ([id number]) [address], [address] [place], [place] [address]Drmkeapna (Bld) [#/Vol]210 10*3/nNWnbaxu274-863ZpjIumspcCommunity Regional Medical CenterComment on above:Performed By: #### CBCA, CMP, 58771-1, 82261-4, TSHR, 64133-9, 2777-1, 2639-3, 2157-6, 3023- #### [facility] ([id number]) [address], [address] [place], [place] [address]IGD COUNT3.83 X10E12/LNormal3.80-5.20[facility] Comment on above:Performed By: #### CBCA, CMP, 52590-9, 54348-0, TSHR, 14695-9, 2777-1, 2639-3, 2157-6, 302-7 #### [facility] ([id number]) [address], [address] [place], [place] [address]ADV (Bld) [#/Vol]10.4 10*3/uLNormal4.0-11.0[facility] Medical CenterComment on above:Performed By: #### CBCA, CMP, 74579-7, 85933-2, TSHR, 96941-7, 2777-1, 2639-3, 2157-6, 3024-7 #### [facility] ([id number]) [address], [address] [place], [place] [address]LNG auto differentialon 45-34-2220Chhwieoiv (Bld) [#/Vol]0 10*3/[facility] HospitalBasophils/100 WBC (Bld)0.2 %[facility] CenterEosinophils (Bld) [#/Vol]0.2 10*3/uLMercy Health Springfield Regional Medical CenterEosinophils/100 WBC (Bld)2 %[facility] Medical CenterErythrocyte distribution width (RBC) [Ratio] 13.4 %11.5 - 15.0 %[facility] Medical CenterHematocrit (Bld) [Volume fraction]34.5 %Low35 - 47 %[facility] Medical CenterHemoglobin (Bld) [Mass/Vol]12 g/dL11.7 - 15.5 g/dLMercy Health Springfield Regional Medical CenterInterpretation and review of laboratory results AbnormalMercy Health Springfield Regional Medical CenterLymphocytes (Bld) [#/Vol]1.3 10*3/uLMercy Health Springfield Regional Medical CenterLymphocytes/100 WBC (Bld)12.7 %[facility] Medical CenterMCH (RBC) [Entitic mass]31.3 pg27 - 34 [facility] HospitalMCHC (RBC) [Mass/Vol]34.8 g/dL32 - 36 g/dLMercy Health Springfield Regional Medical CenterMCV (RBC) [Entitic vol]90 fL80 - 100 fL [facility] Medical CenterMonocytes (Bld) [#/Vol]0.8 10*3/uLMercy Health [facility] Center Monocytes/100 WBC (Bld)7.7 %[facility] Medical CenterNeutrophils (Bld) [#/Vol]8 10*3/uLSnoqualmie Valley Hospital SystemNeutrophils/100 WBC (Bld)77.4 %ProMLakeWood Health Center SystemPlatelet mean volume (Bld) [Entitic vol]8.2 fL7 - 12 fLPChillicothe VA Medical Center SystemPlatelets (Bld) [#/Vol]210 10*3/uLSelect Medical Specialty [facility] SystemRBC (Bld) [#/Vol]3.83 10*6/[facility]illsdale HospitalWBC corrected for nucl RBC Auto (Bld) [#/Vol]10.4[facility] Totalon 23-63-7222IR [Catalytic activity/Vol]29232 U/LHigh24 - 170 U/LProMedHolzer Medical Center – Jackson [Catalytic activity/Vol]on 32-99-6526VMK25108 U/KUzhl68-999FdeCdjkzeCommunity Regional Medical CenterComment on above:Performed By: #### CBCA, CMP, 75804-3, 93394-7, TSHR, 02754-4, 2777-1, 2639-3, 2157-6, 3024-7 #### [facility] ([id number]) [address], [address] [place], [place] [address]QXJOERTJMWDAX METABOLIC PANELon 97-65-8005Symtayl [Mass/Vol]3.7 g/dLNormal3.2-5.3PProMedica Fostoria Community HospitalComment on above:Performed By: #### CBCA, CMP, 98987-5, 24345-9, TSHR, 76685-6, 2777-1, 2639-3, 2157-6, 3024-7 #### [facility] ([id number]) [address], [address] [place], [place] [address]HNN [Catalytic activity/Vol]143 U/DIbvt35-761UcrZxvqfbSamaritan North Health CenterComment on above:Performed By: #### CBCA, CMP, 32993-4, 06127-1, TSHR, 79724-1, 2777-1, 2639-3, 2157-6, 3024-7 #### [facility] ([id number]) [address], [address] [place], [place] [address]TOH [Catalytic activity/Vol]838 U/LHigh0-31PProMedica Fostoria Community HospitalComment on above:Performed By: #### CBCA, CMP, 30967-9, 46982-8, TSHR, 34548-4, 2777-1, 2639-3, 2157-6, 3024-7 #### [facility] ([id number]) [address], [address] [place], [place] [address]Yqcns gap [Moles/Vol]9 mmol/LNormal5-15ProSamaritan North Health Center Comment on above:Performed By: #### CBCA, CMP, 90603-9, 41398-6, TSHR, 14884-1, 2777-1, 2639-3, 2157-6, 3024-7 #### [facility] ([id number]) [address], [address] [place], [place] [address]VSM [Catalytic activity/Vol]764 U/LHigh0-41ProSamaritan North Health CenterComment on above:Performed By: #### CBCA, CMP, 43490-2, 53149-3, TSHR, 59648-3, 2777-1, 2639-3, 2157-6, 3024-7 #### [facility] ([id number]) [address], [address] [place], [place] [address]Ennbfkkbt [Mass/Vol]1.6 mg/dLHigh0.3-1.2PProMedica Fostoria Community HospitalComment on above:Performed By: #### CBCA, CMP, 04186-5, 11249-0, TSHR, 03903-6, 2777-1, 2639-3, 2157-6, 3024-7 #### [facility] ([id number]) [address], [address] [place], [place] [address]Hjjkqyp [Mass/Vol]8.8 mg/dLNormal8.5-10.5PProMedica Fostoria Community HospitalComment on above:Performed By: #### CBCA, CMP, 00681-1, 10231-1, TSHR, 40818-9, 2777-1, 2639-3, 2157-6, 3024-7 #### [facility] ([id number]) [address], [address] [place], [place] [address]Mgnsquwa [Moles/Vol]101 mmol/WSeenur66-469UzcBhwvnp [place] HospitalComment on above:Performed By: #### CBCA, CMP, 93797-8, 93583-2, TSHR, 70959-3, 2777-1, 2639-3, 2157-6, 3024-7 #### [facility] ([id number]) [address], [address] [place], [place] [address]BP1 [Moles/Vol]30 mmol/TGwwilk99-57QmoTkpztpProMedica Fostoria Community Hospital Comment on above:Performed By: #### CBCA, CMP, 88104-1, 53000-0, TSHR, 60847-6, 2777-1, 2639-3, 2157-6, 3024-7 #### [facility] ([id number]) [address], [address] [place], [place] [address]Iqybcvgdfx [Mass/Vol]1.58 mg/dLHigh0.40-1.00ProSamaritan North Health CenterComment on above:Result Comment: METHOD TRACEABLE TO IDMS STANDARD Performed By: #### CBCA, CMP, 63008-7, 28704-7, TSHR, 58857-4, 2777-1, 2639-3, 2157-6, 3024-7 #### [facility] ([id number]) [address], [address] [place], [place] [address]TIL/1.73 sq M.predicted among non-blacks MDRD (S/P/Bld) [Vol rate/Area]47 mL/min/{1.73_m2}Low>59ProSamaritan North Health CenterComment on above: Result Comment: Reported eGFR is based on the CKD-EPI 2020 equation that does not use a race coefficient.Performed By: #### IJEOMA, SYED, 09122-2, 46001-9, TSHR, 54114-1, 2777-1, 2639-3, 2157-6, 3024-7 #### [facility] ([id number]) [address], [address] [place], [place] [address]Bfiwbgr [Mass/Vol]90 mg/iCLdgsep44-35VpgAcjfuh [facility] Comment on above:Performed By: #### IJEOMA, SYED, 53036-0, 66005-6, TSHR, 04669-7, 2777-1, 2639-3, 2157-6, 302-7 #### [facility] ([id number]) [address], [address] [place], [place] [address]Igpiucixa [Moles/Vol]4.7 mmol/LNormal3.5-5.0ProSamaritan North Health CenterComment on above:Performed By: #### IJEOMA, SYED, 75370-1, 29626-5, TSHR, 86227-9, 2777-1, 2639-3, 2157-6, 302-7 #### [facility] ([id number]) [address], [address] [place], [place] [address]Mhlirwp [Mass/Vol]6.0 g/dLNormal6.0-8.0[facility] Comment on above:Performed By: #### IJEOMA, SYED, 27498-1, 99493-9, TSHR, 53933-5, 2777-1, 2639-3, 2157-6, 3024-7 #### [facility] ([id number]) [address], [address] [place], [place] [address]Mkzypm [Moles/Vol]140 mmol/GRxjahn278-894PbgMzngsu [place] HospitalComment on above:Performed By: #### ANISHA, CMP, 01773-0, 68152-0, TSHR, 50177-9, 2777-1, 2639-3, 2157-6, 3024-7 #### [facility] ([id number]) [address] [place] [address], [address] [place], [place] [address]Vgpu nitrogen [Mass/Vol]22 mg/dLNormal5-23ProSamaritan North Health CenterComment on above:Performed By: #### CBCA, CMP, 38826-3, 75735-3, TSHR, 19792-0, 2777-1, 2639-3, 2157-6, 3024-7 #### [facility] ([id number]) [address] [place] [address], [address] [place] [address]Bycbrmp.ionized (Bld) [Mass/Vol]on 87-26-9933FqvMlicvjCoshocton Regional Medical CenterIONIZED CALCIUM4.5 mg/dLNormal4.5-5.3PProMedica Fostoria Community HospitalComment on above:Performed By: #### CBCA, CMP, 73091-5, 40664-0, TSHR, 71257-5, 2777-1, 2639-3, 2157-6, 3024-7 #### [facility] ([id number]) [address] [place] [address], [address] [address]Sxzgaayuzhzjj metabolic panelon 06-06-1415Xdocooj [Mass/Vol]3.7 g/dL3.2 - 5.3 g/dLProMedica Health SystemALP [Catalytic activity/Vol]143 U/LHigh 39 - 130 U/LProMedica Health SystemALT No additional P-5'-P [Catalytic activity/Vol]838 U/LHigh0 - 31 U/LProMedica Health SystemAnion gap [Moles/Vol]9 mmol/L5 - 15 mmol/LProMedica Health SystemAST [Catalytic activity/Vol]764 U/L High0 - 41 U/LProMedica Health SystemBilirubin [Mass/Vol]1.6 mg/dLHigh0.3 - 1.2 mg/dLProMedica Health SystemCalcium [Mass/Vol]8.8 mg/dL8.5 - 10.5 mg/dLProMercy Health St. [facility]'S [facility] SystemChloride [Moles/Vol]101 mmol/L98 - 109 mmol/LProMedica Health SystemCO2 [Moles/Vol]30 mmol/L22 - 32 mmol/LPrProwers Medical Center Health SystemCreatinine [Mass/Vol]1.58 mg/dLHigh0.40 - 1.00 mg/dLMercy Health Springfield Regional Medical CentereGFR (CKD-EPI)non-race tlstivasb51Bsj- PINFProMedMercy Health Kings Mills Hospital SystemGlucose [Mass/Vol] 90 mg/dL65 - 99 mg/dLSelect [facility] SystemPotassium [Moles/Vol]4.7 mmol/L3.5 - 5.0 mmol/LProMedica Health SystemProtein [Mass/Vol]6 g/dL6.0 - 8.0 g/dL [facility] SystemSodium [Moles/Vol]140 mmol/L134 - 146 mmol/[facility] SystemUrea nitrogen [Mass/Vol]22 mg/dL5 - 23 mg/dLMercy Health [facility] Center Enterovirus PCR, Karri 06-59-0732Zlsgpqslugm PCRNegativeNegativeProMercy Health St. Rita'S Medical Center SystemProMercy Health St. [facility]'S Medical Center SystemIonized calciumon 69-94-6491Omstwje.ionized (Bld) [Mass/Vol]4.5 mg/dL4.5 - 5.3 mg/dLMercy Health Springfield Regional Medical CenterIonized magnesiumon 21-99-4814Tuwzpzriu Ionized ISE (Bld) [Moles/Vol]0.74 mmol/L0.45 - 0.74 mmol/L [facility] Medical CenterMagnesium Ionized ISE (Bld) [Moles/Vol]0.45 mmol/L0.45 - 0.74 mmol/[facility] SystemMAGNESIUMon 99-49-2256Kcuxjoych [Mass/Vol]1.7 mg/dLLow1.8-2.6Community [facility] Medical CenterComment on above:Performed By: #### CBCA, CMP, 37662-0, 44640-3, TSHR, 59741-9, 2777-1, 2639-3, 2157-6, 3024-7 #### [facility] ([id number]) [address], [address] [place], [place] [address]Upvxxnmsaob 25-84-4022Tuicfubki [Mass/Vol]1.7 mg/dLLow1.8 - 2.6 mg/dLProMercy Health St. Rita'S Medical Center SystemMagnesium Ionized ISE (Bld) [Moles/Vol]on 11-09-[address] [facility] [address] SystemMagnesium [Moles/Vol]0.74 mmol/LNormal0.45-0.74ProRegency Hospital Cleveland West HospitalComment on above:Result Comment: NEW REFERENCE RANGEPerformed By: #### CBCA, CMP, 08670-0, 69004-3, TSHR, 09469-8, 2777-1, 2639-3, 2157-6, 3024-7 #### [facility] ([id number]) [address] [place] [address], [address] [place], [place] [address]OigDuapdz Health SystemMagnesium [Moles/Vol]0.45 mmol/LNormal 0.45-0.74ProSamaritan North Health CenterComment on above:Result Comment: NEW REFERENCE RANGEPerformed By: #### CBCA, CMP, 20958-0, 83787-1, TSHR, 30123-9, 2777-1, 2639-3, 2157-6, 3024-7 #### [facility] ([id number]) [address] [facility] [address], [address] [place], [place] [address]Bmhxpefzv [Mass/Vol]on 17-47-8348YQYXL BADZJBQZC4387.9 ng/mLHigh 14.3-65.8ProSamaritan North Health CenterComment on above:Performed By: #### CBCA, CMP, 89295-4, 85003-5, TSHR, 52247-8, 2777-1, 2639-3, 2157-6, 3024-7 #### [facility] ([id number]) [address] [address], [address] [place], [place] [address]Xflkwhphw, serumon 07-65-8164Axkttrvia [Mass/Vol]2894.9 ng/mL High14.3 - 65.8 ng/mLProDale Medical Center Health SystemNo Panel Informationon 11-09-2024 Interpretation and review of laboratory resultsAbnormalPrime Healthcare ServicesPHOSPHORUSon 66-44-9548Xrahchbds [Mass/Vol]4.1 mg/dL Normal2.4-4.9ProSamaritan North Health CenterComment on above:Performed By: #### CBCA, CMP, 14189-0, 35185-5, TSHR, 96306-1, 2777-1, 2639-3, 2157-6, 3024-7 #### [facility] ([id number]) [address], [address] [place], [place] [address]MJVHOCHPMpw 20-24-0551Fynhyoqwa [Moles/Vol]4.1 mmol/LNormal 3.5-5.0ProSamaritan North Health CenterComment on above:Performed By: #### IJEOMA, CMP #### [facility] ([id number]) [address], [address] [place], [place] [address]Olffvksdsrvo 32-60-3026Dadzaxnzu [Mass/Vol]4.1 mg/dL2.4 - 4.9 mg/dLMercy Health Springfield Regional Medical CenterPotassiumon 37-54-1027Xzkfxwqxy [Moles/Vol]4.1 mmol/L3.5 - 5.0 mmol/LProMedOhioHealth Grove City Methodist HospitalPotassium [Moles/Vol]on 11-09-2024 [facility] Medical CenterBASIC METABOLIC PANLon 30-59-1572Qjcdl gap [Moles/Vol]5 mmol/LNormal5-15ProSamaritan North Health CenterComment on above:Performed By: #### CBCA, CMP, 24061-0, 52118-7, TSHR, 17983-4, 2777-1, 2639-3, 2157-6, 3024-7 #### [facility] ([id number]) [address], [address] [place], [place] [address]Eklknvj [Mass/Vol]7.7 mg/dLLow8.5-10.5PProMedica Fostoria Community Hospital Comment on above:Performed By: #### CBCA, CMP, 16195-3, 32073-5, TSHR, 15636-8, 2777-1, 2639-3, 2157-6, 3024-7 #### [facility] ([id number]) [address], [address] [place], [place] [address]Qclpmudi [Moles/Vol]108 mmol/CQolxxj57-897SlsKtvjtg [facility] HospitalComment on above:Performed By: #### CBCA, CMP, 47864-6, 68100-1, TSHR, 66379-4, 2777-1, 2639-3, 2157-6, 3024-7 #### [facility] ([id number]) [address], [address] [place], [place] [address]QA1 [Moles/Vol]28 mmol/NZtnfbm32-48XtbCsjgcvProMedica Fostoria Community Hospital Comment on above:Performed By: #### ANISHA, CMP, 89507-4, 25461-9, TSHR, 28004-5, 2777-1, 2639-3, 2157-6, 3024-7 #### [facility] ([id number]) [address], [address] [place], [place] [address]Tiqchqqbse [Mass/Vol]1.51 mg/dLHigh0.40-1.00ProSamaritan North Health CenterComment on above:Result Comment: METHOD TRACEABLE TO IDMS STANDARD Performed By: #### ANISHA, CMP, 06396-1, 69196-5, TSHR, 44901-3, 2777-1, 2639-3, 2157-6, 3024-7 #### [facility] ([id number]) [address], [address] [place], [place] [address]OHQ/1.73 sq M.predicted among non-blacks MDRD (S/P/Bld) [Vol rate/Area]49 mL/min/{1.73_m2}Low>59ProSamaritan North Health CenterComment on above: Result Comment: Reported eGFR is based on the CKD-EPI 2020 equation that does not use a race coefficient.Performed By: #### CBCA, CMP, 41328-0, 49290-6, TSHR, 28878-9, 2777-1, 2639-3, 2157-6, 3024-7 #### [facility] ([id number]) [address], [address] [place], [place] [address]Qlmocvw [Mass/Vol]77 mg/yENuwsho72-53WxeJydsno [facility] Comment on above:Performed By: #### CBCA, CMP, 96914-9, 12404-0, TSHR, 32273-7, 2777-1, 2639-3, 2157-6, 3024-7 #### [facility] ([id number]) [address], [address] [place], [place] [address]Wgkgeuyyd [Moles/Vol]3.3 mmol/LLow3.5-5.0ProSamaritan North Health CenterComment on above:Performed By: #### CBCA, CMP, 93189-4, 65956-4, TSHR, 64976-0, 2777-1, 2639-3, 2157-6, 3024-7 #### [facility] ([id number]) [address], [address] [place], [place] [address]Rzhzjy [Moles/Vol]141 mmol/GBezabe071-601VwdVktekh [facility] HospitalComment on above:Performed By: #### CBCA, CMP, 23133-7, 03350-4, TSHR, 69786-2, 2777-1, 2639-3, 2157-6, 3024-7 #### [facility] ([id number]) [address], [address] [place], [place] [address]Ggnl nitrogen [Mass/Vol]24 mg/dLHigh5-23ProSamaritan North Health CenterComment on above:Performed By: #### CBCA, CMP, 51593-1, 62192-6, TSHR, 19209-8, 2777-1, 2639-3, 2157-6, 3024-7 #### [facility] ([id number]) [address], [address] [place], [place] [address]Soqan Metabolic Panelon [id number] gap [Moles/Vol]5 mmol/L5 - 15 mmol/LProMedica Health SystemCalcium [Mass/Vol]7.7 mg/dLLow8.5 - 10.5 mg/dLProDale Medical Center Health SystemChloride [Moles/Vol]108 mmol/L98 - 109 mmol/L ProMedic Health SystemCO2 [Moles/Vol]28 mmol/L22 - 32 mmol/LProMednoland hospital dothan Health SystemCreatinine [Mass/Vol]1.51 mg/dLHigh0.40 - 1.00 mg/dLSelect [facility] SystemeGFR (CKD-EPI)non-race [id number]- PINFPChillicothe VA Medical Center SystemGlucose [Mass/Vol]77 mg/dL65 - 99 mg/dLSelect Medical [facility]ty [facility] SystemInterpretation and review of laboratory resultsAbnormalProDale Medical Center Health SystemPotassium [Moles/Vol]3.3 mmol/LLow3.5 - 5.0 mmol/LProMedica Health SystemSodium [Moles/Vol]141 mmol/L134 - 146 mmol/ECU Health Medical CenteroMedica Health SystemUrea nitrogen [Mass/Vol]24 mg/dLHigh5 - 23 mg/dLProMercy Health [address]. Rita'S Medical Center SystemProDale Medical Center Health SystemCBC AND AUTO DIFFon [id number] BASOPHIL0.0 X10E9/LNormal0.0-0.2PProMedica Fostoria [facility] Comment on above:Performed By: #### CBCA, CMP, 50380-4, 61164-9, TSHR, 99349-1, 2777-1, 2639-3, 2157-6, 3024-7 #### [facility] ([id number]) [address], [address] [place], [place] [address]TETIRALW NEUTROPHIL8.3 X10E9/LHigh1.5-6.6Community Regional Medical CenterComment on above:Performed By: #### CBCA, CMP, 90447-2, 08647-5, TSHR, 80185-0, 2777-1, 2639-3, 2157-6, 3024-7 #### [facility] ([id number]) [address], [address] [place], [place] [address]Ehowiofck/100 WBC (Bld)0.2 %NormalCommunity Regional Medical Center Comment on above:Performed By: #### CBCA, CMP, 29045-4, 53152-8, TSHR, 14645-0, 2777-1, 2639-3, 2157-6, 3024-7 #### [facility] ([id number]) [address], [address] [place], [place] [address]Dwjdcvawdng (Bld) [#/Vol]0.0 10*3/uLNormal0.0-0.4ProSamaritan North Health CenterComment on above:Performed By: #### CBCA, CMP, 17441-4, 99309-0, TSHR, 56699-4, 2777-1, 2639-3, 2157-6, 3024-7 #### [facility] ([id number]) [address], [address] [place], [place] [address]Htubtuyirgb/100 WBC (Bld)0.1 %NormalCommunity Regional Medical Center Comment on above:Performed By: #### CBCA, CMP, 00139-3, 81109-2, TSHR, 46013-4, 2777-1, 2639-3, 2157-6, 3024-7 #### [facility] ([id number]) [address], [address] [place], [place] [address]Imxxdihdeag distribution width (RBC) [Ratio]13.4 %Normal 11.5-15.0ProSamaritan North Health CenterComment on above:Performed By: #### CBCA, CMP, 54635-9, 37377-7, TSHR, 26665-3, 2777-1, 2639-3, 2157-6, 3024-7 #### [facility] ([id number]) [address], [address] [place], [place] [address]Qylfqeenqz (Bld) [Volume fraction]27.9 %Uci54-59EayKyqchfSamaritan North Health CenterComment on above:Performed By: #### CBCA, CMP, 73923-5, 14177-5, TSHR, 94888-8, 2777-1, 2639-3, 2157-6, 302-7 #### [facility] ([id number]) [address], [address] [place], [place] [address]Wtqvofezxf (Bld) [Mass/Vol]9.5 g/dLLow11.7-15.5PProMedica Fostoria Community HospitalComment on above:Performed By: #### CBCA, CMP, 83843-8, 91285-5, TSHR, 39360-0, 2777-1, 2639-3, 2157-6, 3023-7 #### [facility] ([id number]) [address], [address] [place], [place] [address]Iqgoudgmslb (Bld) [#/Vol]1.8 10*3/uLNormal1.0-3.5PProMedica Fostoria Community HospitalComment on above:Performed By: #### CBCA, CMP, 12517-1, 52253-1, TSHR, 11555-1, 2777-1, 2639-3, 2157-6, 3023- #### [facility] ([id number]) [address], [address] [place], [place] [address]Nxnqopefdkj/100 WBC (Bld)16.1 %NormalCommunity Regional Medical Center Comment on above:Performed By: #### CBCA, CMP, 80745-8, 50937-6, TSHR, 72489-1, 2777-1, 2639-3, 2157-6, 3023-7 #### [facility] ([id number]) [address], [address] [place], [place] [address]UIX (RBC) [Entitic mass]30.9 vwMnmjcd47-01OsmEzorlq [place] HospitalComment on above:Performed By: #### CBCA, CMP, 31378-4, 64188-9, TSHR, 19718-1, 2777-1, 2639-3, 2157-6, 3024-7 #### [facility] ([id number]) [address], [address] [place], [place] [address]JYFI (RBC) [Mass/Vol]34.2 g/zPWjiqfc28-44RhbEchyox [place] HospitalComment on above:Performed By: #### CBCA, CMP, 05489-7, 46837-2, TSHR, 47300-2, 2777-1, 2639-3, 2157-6, 3024-7 #### [facility] ([id number]) [address], [address] [place], [place] [address]RXH (RBC) [Entitic vol]90 jPCjvdax89-471XpsKqfqgs [place] HospitalComment on above:Performed By: #### CBCA, CMP, 17761-1, 55593-5, TSHR, 97509-3, 2777-1, 2639-3, 2157-6, 3024-7 #### [facility] ([id number]) [address], [address] [place], [place] [address]Tqvsjvqkc (Bld) [#/Vol]0.9 10*3/uLNormal0-0.9ProRegency Hospital Cleveland West HospitalComment on above:Performed By: #### CBCA, CMP, 91282-2, 37560-7, TSHR, 79990-4, 2777-1, 2639-3, 2157-6, 3024-7 #### [facility] ([id number]) [address], [facility] [address] [place], [place] [address]Dhifeembb/100 WBC (Bld)7.9 %NormalProMedica Hassan Hospital Comment on above:Performed By: #### CBCA, CMP, 03201-2, 67232-5, TSHR, 81840-9, 2777-1, 2639-3, 2157-6, 3024-7 #### [facility] ([id number]) [address], [address] [place], [place] [address]Xcycznbjasp/100 WBC (Bld)75.7 %NormalCommunity Regional Medical Center Comment on above:Performed By: #### CBCA, CMP, 82752-5, 19914-9, TSHR, 52666-5, 2777-1, 2639-3, 2157-6, 3024-7 #### [facility] ([id number]) [address], [address] [place], [place] [address]Xzfydrrg mean volume (Bld) [Entitic vol]8.2 fLNormal7-12 [facility] Medical CenterComment on above:Performed By: #### CBCA, CMP, 62731-8, 78586-2, TSHR, 79106-1, 2777-1, 2639-3, 2157-6, 3024-7 #### [facility] ([id number]) [address], [address] [place], [place] [address]Uunjddfun (Bld) [#/Vol]203 10*3/tNHygjxv538-037JliTvjnlm [place] HospitalComment on above:Performed By: #### CBCA, CMP, 59558-8, 36824-6, TSHR, 76052-3, 2777-1, 2639-3, 2157-6, 3024-7 #### [facility] ([id number]) [address], [address] [place], [place] [address]RXH COUNT3.09 X10E12/LLow3.80-5.20[facility] Comment on above:Performed By: #### CBCA, CMP, 56848-7, 33091-5, TSHR, 68631-1, 2777-1, 2639-3, 2157-6, 3024-7 #### [facility] ([id number]) [address], [address] [place], [place] [address]CUI (Bld) [#/Vol]11.0 10*3/uLNormal4.0-11.0Community Regional Medical CenterComment on above:Performed By: #### CBCA, CMP, 64586-3, 15971-4, TSHR, 62640-0, 2777-1, 2639-3, 2157-6, 3024-7 #### [facility] ([id number]) [address], [address] [place], [place] [address]TEO auto differentialon 69-68-6676Rqqytpexw (Bld) [#/Vol]0 10*3/uLMercy Health Springfield Regional Medical CenterBasophils/100 WBC (Bld)0.2 %[facility] CenterEosinophils (Bld) [#/Vol]0 10*3/uLMercy Health Springfield Regional Medical CenterEosinophils/100 WBC (Bld)0.1 %[facility] Medical CenterErythrocyte distribution width (RBC) [Ratio]13.4 %11.5 - 15.0 %[facility] Medical CenterHematocrit (Bld) [Volume fraction]27.9 %Low35 - 47 %[facility] Medical CenterHemoglobin (Bld) [Mass/Vol]9.5 g/dLLow11.7 - 15.5 g/dLMercy Health Springfield Regional Medical CenterInterpretation and review of laboratory resultsAbnormalMercy Health Springfield Regional Medical CenterLymphocytes (Bld) [#/Vol]1.8 10*3/uLMercy Health Springfield Regional Medical CenterLymphocytes/100 WBC (Bld)16.1 %[facility] Medical CenterMCH (RBC) [Entitic mass]30.9 pg27 - 34 [facility] HospitalMCHC (RBC) [Mass/Vol]34.2 g/dL32 - 36 g/dLMercy Health Springfield Regional Medical CenterMCV (RBC) [Entitic vol]90 fL80 - 100 [facility] HealthcareMonocytes (Bld) [#/Vol]0.9 10*3/[facility] SystemMonocytes/100 WBC (Bld)7.9 %[facility] SystemNeutrophils (Bld) [#/Vol]8.3 10*3/uLHighSelect Medical Specialty [facility] SystemNeutrophils/100 WBC (Bld)75.7 %[facility] SystemPlatelet mean volume (Bld) [Entitic vol]8.2 fL7 - 12 fL [facility] SystemPlatelets (Bld) [#/Vol]203 10*3/uLSelect Medical [facility]ty [facility] System RBC (Bld) [#/Vol]3.09 10*6/[facility] Hospital [facility] MichiganWBC corrected for nucl RBC Auto (Bld) [#/Vol]11[facility] Totalon 06-52-9650SN [Catalytic activity/Vol]75640 U/LHigh24 - 170 U/[facility] [Catalytic activity/Vol]on 19-56-4155Gknudobyhdqlrl and review of laboratory resultsAbnormalProIndiana Regional Medical CenterCPK34826 U/REntf09-038EhnVxmwkcCommunity Regional Medical CenterComment on above:Performed By: #### CBCA, SYED, 37019-4, 45352-4, TSHR, 51447-9, 2777-1, 2639-3, 2157-6, 3024-7 #### [facility] ([id number]) [address] [place] [address], [address] [place], [place] [address]Cmayyry.ionized (Bld) [Mass/Vol]on 49-79-0521RciYnjswlMercy Health Springfield Regional Medical CenterIONIZED CALCIUM4.6 mg/dLNormal4.5-5.3PProMedica Fostoria Community HospitalComment on above:Performed By: #### CBCA, CMP, 30043-2, 99874-2, TSHR, 95060-1, 2777-1, 2639-3, 2157-6, 3024-7 #### [facility] ([id number]) [address] [place] [address], [address] [place], [place] [address]Orqgmhvfm (Vitamin B12) [Mass/Vol]on 39-36-2375SrvWtgmja Health SystemFERRITINon 83-75-3682Icpeqypy [Mass/Vol]214 ng/sDMnhtnp96-582QjwBoxriz [place] HospitalComment on above:Performed By: #### SYED RAPHAEL, 48292-9, 64698-2, TSHR, 01027-3, 2777-1, 2639-3, 2157-6, 3024-7 #### [facility] ([id number]) [address] [place] [address], [address] [place], [place] [address]Twmnqtsmdw 45-78-6572Suhybduq [Mass/Vol]214 ng/mL11 - 307 ng/mL ProMOhioHealth Mansfield HospitalFerritin [Mass/Vol]on 78-23-5750DchQglunlCoshocton Regional Medical Center Folateon 86-85-5072Crsdpz [Mass/Vol]9.4 ng/mL5.8 - PINF ng/mLMercy Health Springfield Regional Medical CenterFolate [Mass/Vol]on 41-61-0867MnqFnbleoMercy Health Springfield Regional Medical CenterFOLIC ACID9.4 ng/mL Normal>5.8Community Regional Medical CenterComment on above:Result Comment: NEW REFERENCE RANGEPerformed By: #### SYED RAPHAEL, 31578-4, 34748-9, TSHR, 06664-4, 2777-1, 2639-3, 2157-6, 3024-7 #### [facility] ([id number]) [address] [place] [address], [address] [place], [place] [address]Lcusart Glucometer (BldC) [Mass/Vol]on 38-31-7046Azhqyxd [Mass/Vol]153 mg/lNSnsd68 - 99 mg/dLMercy Health Springfield Regional Medical CenterInterpretation and review of laboratory resultsAbnormalProCoshocton Regional Medical CenterProCoshocton Regional Medical CenterGlucose [Mass/Vol]153 mg/gBRmew34-26DblWcsewdSamaritan North Health CenterIRON PROFILE on 09-54-4706Qkpi [Mass/Vol]70 ug/mPOaajwv28-394XzpVkadmu [place] HospitalComment on above:Performed By: #### CBCA, CMP, 04104-0, 59928-1, TSHR, 80984-5, 2777-1, 2639-3, 2157-6, 3024-7 #### [facility] ([id number]) [address], [address] [place], [place] [address]IHSS DNDNSCG540 ug/dCJppxqh769-086SsyPpvklgCommunity Regional Medical Center Comment on above:Performed By: #### CBCA, CMP, 47061-8, 06737-1, TSHR, 18513-7, 2777-1, 2639-3, 2157-6, 3024-7 #### [facility] ([id number]) [address], [address] [place], [place] [address]CFXR NPIPXJCTDU02 % WBPFKGDNNVQeoeme25-84YvcMjnkem [place] HospitalComment on above:Performed By: #### ANISHA, CMP, 57460-0, 92661-8, TSHR, 64798-4, 2777-1, 2639-3, 2157-6, 3024-7 #### [facility] ([id number]) [address], [address] [place], [place] [address]Teitixk calciumon 25-26-9465Psjbxlf.ionized (Bld) [Mass/Vol]4.6 mg/dL4.5 - 5.3 mg/dLMercy Health Springfield Regional Medical CenterIonized magnesiumon 11-08-2024 Magnesium Ionized ISE (Bld) [Moles/Vol]0.63 mmol/L0.45 - 0.74 mmol/LProMedica University Hospitals St. [facility] SystemIron and TIBCon 99-17-8184Wigq [Mass/Vol]70 ug/dL50 - 170 ug/dL [facility] SystemIron binding capacity [Mass/Vol]358 ug/dL250 - 425 ug/dL [facility] Centeredica [facility] SystemIron saturation [Mass fraction]20ProCoshocton Regional Medical Center MAGNESIUMon 59-03-7485Reibkpanr [Mass/Vol]1.9 mg/dLNormal1.8-2.6ProSamaritan North Health CenterComment on above:Performed By: #### CBCA, CMP, 38785-3, 37733-4, TSHR, 24861-9, 2777-1, 2639-3, 2157-6, 3024-7 #### [facility] ([id number]) [address], [address] [place], [place] [address]Mjipfvasvix 63-71-3062Ymluthxkj [Mass/Vol]1.9 mg/dL1.8 - 2.6 mg/dLMercy Health Springfield Regional Medical CenterMagnesium Ionized ISE (Bld) [Moles/Vol]on 11-08-2024 [facility] Medical CenterMagnesium [Moles/Vol]0.63 mmol/LNormal0.45-0.74ProSamaritan North Health CenterComment on above:Result Comment: NEW REFERENCE RANGEPerformed By: #### CBCA, CMP, 82652-7, 14105-3, TSHR, 75092-4, 2777-1, 2639-3, 2157-6, 3024-7 #### [facility] ([id number]) [address], [address] [place], [place] [address]Tbulzbtqm [Mass/Vol]on 09-27-9783Anwxalhtcckbuq and review of laboratory resultsAbnormalAsheville Specialty HospitalERUM UFJZEPQCI8019.6 ng/mLHigh 14.3-65.8Community Regional Medical CenterComment on above:Performed By: #### CBCA, CMP, 27832-6, 59442-5, TSHR, 86583-7, 2777-1, 2639-3, 2157-6, 3024-7 #### [facility] ([id number]) [address], [address] [place], [place] [address]Yxvtovwhl, serumon 55-66-5679Evwqkgyhz [Mass/Vol]3593.6 ng/mL High14.3 - 65.8 ng/mLMercy Health Springfield Regional Medical CenterNeutrophil cytoplasmic Ab panel IF (S)on 13-23-6268s-ANCANegativeNegativeMercy Health Springfield Regional Medical CenterNeutrophil cytoplasmic Ab.perinuclear IF Ql (S)NegativeNegativeProPsychiatric hospital, demolished 2001 SystemNo Panel Informationon 57-96-5833UyoNqzmfaAurora Valley View Medical Center SystemPHOSPHORUSon 71-08-4847Kjxajficc [Mass/Vol]2.7 mg/dL Normal2.4-4.9ProRegency Hospital Cleveland West HospitalComment on above:Performed By: #### IJEOMA, CMP, 21394-1, 46654-2, TSHR, 79600-0, 2777-1, 2639-3, 2157-6, 3024-7 #### [facility] ([id number]) [address], [address] [place], [place] [address]WDUAKDKHEjr 86-84-6727Pzzwgoypp [Moles/Vol]3.8 mmol/LNormal 3.5-5.0ProRegency Hospital Cleveland West HospitalComment on above:Performed By: #### IJEOMA, SYED, 95080-6, 86014-6, TSHR, 31251-6, 2777-1, 2639-3, 7-6, 4-7 #### [facility] ([id number]) [address], [address] [place], [place] [address]Fnqoiuujg [Moles/Vol]4.0 mmol/LNormal3.5-5.0ProRegency Hospital Cleveland West HospitalComment on above:Performed By: #### IJEOMA, CMP, 30363-2, 19938-6, TSHR, 60506-8, 2777-1, 2639-3, 2157-6, 4-7 #### [facility] ([id number]) [address], [address] [place], [place] [address]Hxhvshwmv [Moles/Vol]3.8 mmol/LNormal3.5-5.0ProRegency Hospital Cleveland West HospitalComment on above:Performed By: #### ANISHA, CMP, 22988-4, 13953-9, TSHR, 41597-6, 2777-1, 2639-3, 2157-6, 3024-7 #### [facility] ([id number]) [address], [address] [place], [place] [address]Spqavimhmlgp 03-67-1682Ewvfejsqw [Mass/Vol]2.7 mg/dL2.4 - 4.9 mg/dLProDale Medical Center Health SystemPotassiumon 01-23-8415Lsxdsmzft [Moles/Vol]3.8 mmol/L3.5 - 5.0 mmol/LProMednoland hospital dothan Health SystemPotassium [Moles/Vol]4 mmol/L3.5 - 5.0 mmol/LProMedica Health SystemPotassium [Moles/Vol]3.8 mmol/L3.5 - 5.0 mmol/L [facility] Medical CenterPotassium [Moles/Vol]on 33-56-7116LuaDpzfdnPsychiatric hospital, demolished 2001 SystemVITAMIN B12on 34-35-0668Vasrdqqav (Vitamin B12) [Mass/Vol]525 pg/cQIxmdbz560-458VfnWaavno [place] HospitalComment on above: Performed By: #### CBCA, CMP, 17489-1, 82099-4, TSHR, 67356-0, 2777-1, 2639-3, 2157-6, 3024-7 #### [facility] ([id number]) [address], [address] [place], [place] [address]Zsngful B12on 81-95-5477Iaohilwtu (Vitamin B12) [Mass/Vol]525 pg/mL180 - 914 pg/mLSelect [facility] SystemANA Screen w/ Reflexon 11-07-2024 Nuclear Ab IA Ql (S)NegativeNegative^NegativeProMercy Health St. [facility]'S Medical Center SystemAldolaseon 00-19-7666Syjsxnfw [Catalytic activity/Vol]241 mU/mLHigh1.2 - 7.6 U/LPrProwers Medical Center Health SystemAldolase [Catalytic activity/Vol]on 40-66-3374Iwnxsjkugrngwb and review of laboratory resultsAbnormalProMercy Health St. Rita'S Medical Center SystemProMercy Health St. [facility] SystemCBC AND AUTO DIFFon 91-68-3606FRJCOWAA BASOPHIL0.1 X10E9/LNormal0.0-0.2 [facility] Medical CenterComment on above:Performed By: #### CBCA, CMP, 26050-6, 82162-0, TSHR, 89834-9, 2777-1, 2639-3, 2157-6, 3024-7 #### [facility] ([id number]) [address], [address] [place], [place] [address]TKGDAJGA RQIHGHGMTZ81.3 X10E9/LHigh1.5-6.6ProSamaritan North Health CenterComment on above:Performed By: #### CBCA, CMP, 79936-7, 38690-5, TSHR, 73555-6, 2777-1, 2639-3, 2157-6, 3024-7 #### [facility] ([id number]) [address], [address] [place], [place] [address]Vbkybknjt/100 WBC (Bld)0.4 %NormalCommunity Regional Medical Center Comment on above:Performed By: #### CBCA, CMP, 82450-9, 34014-8, TSHR, 83575-1, 2777-1, 2639-3, 2157-6, 3024-7 #### [facility] ([id number]) [address], [address] [place], [place] [address]Jonjulscfvg (Bld) [#/Vol]0.0 10*3/uLNormal0.0-0.4ProSamaritan North Health CenterComment on above:Performed By: #### CBCA, CMP, 70021-3, 40549-2, TSHR, 38644-7, 2777-1, 2639-3, 2157-6, 3024-7 #### [facility] ([id number]) [address], [address] [place], [place] [address]Nwlrnbthalu/100 WBC (Bld)0.0 %NormalCommunity Regional Medical Center Comment on above:Performed By: #### CBCA, CMP, 27639-7, 69187-8, TSHR, 76347-6, 2777-1, 2639-3, 2157-6, 3024-7 #### [facility] ([id number]) [address], [address] [place], [place] [address]Nowrowxztbt distribution width (RBC) [Ratio]13.4 %Normal 11.5-15.0Community Regional Medical CenterComment on above:Performed By: #### CBCA, CMP, 26371-2, 65569-5, TSHR, 62622-7, 2777-1, 2639-3, 2157-6, 3024-7 #### [facility] ([id number]) [address], [address] [place], [place] [address]Qktseiwjiq (Bld) [Volume fraction]30.8 %Gag34-76EabIobtjqSamaritan North Health CenterComment on above:Performed By: #### CBCA, CMP, 35403-0, 24978-8, TSHR, 43627-0, 2777-1, 2639-3, 2157-6, 3024-7 #### [facility] ([id number]) [address], [address] [place], [place] [address]Kapvxfsfdr (Bld) [Mass/Vol]10.5 g/dLLow11.7-15.5PProMedica Fostoria Community HospitalComment on above:Performed By: #### CBCA, CMP, 28761-6, 41199-5, TSHR, 23362-0, 2777-1, 2639-3, 2157-6, 3024-7 #### [facility] ([id number]) [address], [address] [place], [place] [address]Miycfzmsfyl (Bld) [#/Vol]0.9 10*3/uLLow1.0-3.5PProMedica Fostoria Community HospitalComment on above:Performed By: #### CBCA, CMP, 42315-9, 81691-8, TSHR, 78413-7, 2777-1, 2639-3, 2157-6, 3024-7 #### [facility] ([id number]) [address], [address] [place], [place] [address]Oieermgfzbh/100 WBC (Bld)5.2 %NormalProSamaritan North Health Center Comment on above:Performed By: #### CBCA, CMP, 56655-1, 59567-3, TSHR, 58904-4, 2777-1, 2639-3, 2157-6, 3024-7 #### [facility] ([id number]) [address], [address] [place], [place] [address]SAA (RBC) [Entitic mass]30.6 yrOgkmvb82-16DbpIyitvo [place] HospitalComment on above:Performed By: #### CBCA, CMP, 35438-8, 82227-1, TSHR, 68277-1, 2777-1, 2639-3, 2157-6, 3024-7 #### [facility] ([id number]) [address], [address] [place], [place] [address]SASB (RBC) [Mass/Vol]34.1 g/tUFilfck45-34KwpLjvdid [place] HospitalComment on above:Performed By: #### CBCA, CMP, 55695-0, 21142-4, TSHR, 98318-9, 2777-1, 2639-3, 2157-6, 3024-7 #### [facility] ([id number]) [address], [address] [place], [place] [address]QQO (RBC) [Entitic vol]90 tJRnebkn90-389BnwTxqveb [place] HospitalComment on above:Performed By: #### CBCA, CMP, 90658-5, 84399-1, TSHR, 46701-8, 2777-1, 2639-3, 2157-6, 3024-7 #### [facility] ([id number]) [address], [address] [place], [place] [address]Gzgacafpi (Bld) [#/Vol]0.8 10*3/uLNormal0-0.9ProSamaritan North Health CenterComment on above:Performed By: #### CBCA, CMP, 79279-0, 78136-2, TSHR, 71812-1, 2777-1, 2639-3, 2157-6, 3024-7 #### [facility] ([id number]) [address], [address] [place], [place] [address]Aieocojoz/100 WBC (Bld)4.5 %NormalCommunity Regional Medical Center Comment on above:Performed By: #### CBCA, CMP, 45603-3, 46038-5, TSHR, 17716-3, 2777-1, 2639-3, 2157-6, 3024-7 #### [facility] ([id number]) [address], [address] [place], [place] [address]Gfnlwtuiqia/100 WBC (Bld)89.9 %NormalCommunity Regional Medical Center Comment on above:Performed By: #### CBCA, CMP, 73828-0, 08131-9, TSHR, 82957-3, 2777-1, 2639-3, 2157-6, 3024-7 #### [facility] ([id number]) [address], [address] [place], [place] [address]Wkaulail mean volume (Bld) [Entitic vol]8.7 fLNormal7-12 [facility] HospitalComment on above:Performed By: #### CBCA, CMP, 89693-1, 47635-1, TSHR, 56414-0, 2777-1, 2639-3, 2157-6, 3024-7 #### [facility] ([id number]) [address], [address] [place], [place] [address]Bvbuauhzp (Bld) [#/Vol]243 10*3/wDZtnlbm931-421JtcWcogpp [place] HospitalComment on above:Performed By: #### CBCA, CMP, 81596-4, 31117-8, TSHR, 00780-6, 2777-1, 2639-3, 2157-6, 3024-7 #### [facility] ([id number]) [address], [address] [place], [place] [address]FTI COUNT3.44 X10E12/LLow3.80-5.20[facility] Comment on above:Performed By: #### CBCA, CMP, 75153-6, 83159-7, TSHR, 02336-7, 2777-1, 2639-3, 2156-6, 3023-7 #### [facility] ([id number]) [address], [address] [place], [place] [address]WFI (Bld) [#/Vol]18.1 10*3/uLHigh4.0-11.0[facility] CenterComment on above:Performed By: #### CBCA, CMP, 36360-4, 76592-2, TSHR, 48803-0, 2777-1, 9-3, 2156-6, 3023-7 #### [facility] ([id number]) [address], [address] [place], [place] [address]SWA auto differentialon 93-33-1693Cixpjchir (Bld) [#/Vol]0.1 10*3/uLProMedica Health SystemBasophils/100 WBC (Bld)0.4 %[facility] CenteredicChippewa City Montevideo [facility] SystemEosinophils (Bld) [#/Vol]0 10*3/uLProMedica Health SystemEosinophils/100 WBC (Bld)0 %[facility] Health SystemErythrocyte distribution width (RBC) [Ratio] 13.4 %11.5 - 15.0 %[facility] Health SystemHematocrit (Bld) [Volume fraction]30.8 %Low35 - 47 %[facility] Health SystemHemoglobin (Bld) [Mass/Vol]10.5 g/dLLow11.7 - 15.5 g/dLSelect Medical Specialty [facility] SystemInterpretation and review of laboratory resultsAbnormalProMercy Health St. Rita'S Medical Center SystemLymphocytes (Bld) [#/Vol]0.9 10*3/uLLow [facility] CenterLymphocytes/100 WBC (Bld)5.2 %[facility] ShawH (RBC) [Entitic mass]30.6 pg27 - 34 [facility] HospitalMCHC (RBC) [Mass/Vol]34.1 g/dL32 - 36 g/dLProCoshocton Regional Medical CenterMCV (RBC) [Entitic vol]90 fL80 - 100 [facility] SystemMonocytes (Bld) [#/Vol]0.8 10*3/uLMercy Health Springfield Regional Medical CenterMonocytes/100 WBC (Bld)4.5 %[facility] SystemNeutrophils (Bld) [#/Vol]16.3 10*3/uLHighMercy Health Springfield Regional Medical CenterNeutrophils/100 WBC (Bld) 89.9 %[facility] CenterPlatelet mean volume (Bld) [Entitic vol]8.7 fL7 - 12 [facility] SystemPlatelets (Bld) [#/Vol]243 10*3/uLMercy Health Springfield Regional Medical CenterRBC (Bld) [#/Vol]3.44 10*6/uLLowMercy Health Springfield Regional Medical CenterWBC corrected for nucl RBC Auto (Bld) [#/Vol]18.1HRox[facility] Totalon 67-95-2323FM [Catalytic activity/Vol]93582 U/LHigh24 - 170 U/L [facility] [Catalytic activity/Vol]82010 U/LHigh24 - 170 U/L [facility] [Catalytic activity/Vol]on 59-93-7507Bvwnnjgcnbaswg and review of laboratory resultsAbnoHelen M. Simpson Rehabilitation HospitalInterpretation and review of laboratory resultsAbCommunity Health SystemsCPK28677 U/BSjvn86-596MjnHiygmdCommunity Regional Medical Center Comment on above:Performed By: #### CBCA, CMP, 08144-6, 85756-8, TSHR, 22496-0, 2777-1, 2639-3, 2157-6, 3024-7 #### [facility] ([id number]) [address] [place] [address], [address] [place], [place] [id number] U/ADtyd16-645NjnWlzlscSamaritan North Health CenterComment on above: Performed By: #### IJEOMA, CMP, 51946-8, 27085-2, TSHR, 56527-6, 2777-1, 2639-3, 2157-6, 3024-7 #### [facility] ([id number]) [address] [place], [place] [address]LEULDYBIWJSXG METABOLIC PANELon 71-41-9272Iqeurfd [Mass/Vol]3.8 g/dLNormal3.2-5.3ProMedica Galion HospitalComment on above:Performed By: #### IJEOMA, CMP, 95602-3, 76377-0, TSHR, 30842-7, 2777-1, 2639-3, 2157-6, 3024-7 #### [facility] ([id number]) [address], [address] [place], [place] [address]SKK [Catalytic activity/Vol]61 U/KJytxgq53-034CapUpwrkg Toledo HospitalComment on above:Performed By: #### IJEOMA, CMP, 07736-7, 30680-0, TSHR, 65153-2, 2777-1, 2639-3, 2157-6, 3024-7 #### [facility] ([id number]) [address], [address] [place], [place] [address]GKF [Catalytic activity/Vol]1446 U/LHigh0-31PProMedica Fostoria Community HospitalComment on above:Performed By: #### CBCA, CMP, 68775-9, 11137-2, TSHR, 58837-3, 2777-1, 2639-3, 2157-6, 3024-7 #### [facility] ([id number]) [address], [address] [place], [place] [address]Sfqud gap [Moles/Vol]8 mmol/LNormal5-15ProRegency Hospital [facility] Comment on above:Performed By: #### CBCA, CMP, 72092-2, 06982-5, TSHR, 93417-3, 2777-1, 2639-3, 2157-6, 3024-7 #### [facility] ([id number]) [address], [address] [place], [place] [address]WKF [Catalytic activity/Vol]783 U/LHigh0-41ProSamaritan North Health CenterComment on above:Performed By: #### CBCA, CMP, 88265-6, 02528-3, TSHR, 45638-7, 2777-1, 2639-3, 2157-6, 3024-7 #### [facility] ([id number]) [address], [address] [place], [place] [address]Efvnkumuh [Mass/Vol]0.5 mg/dLNormal0.3-1.2PProMedica Fostoria Community HospitalComment on above:Performed By: #### CBCA, CMP, 34029-1, 74545-1, TSHR, 78755-6, 2777-1, 2639-3, 2157-6, 3024-7 #### [facility] ([id number]) [address], [address] [place], [place] [address]Vmtpxmf [Mass/Vol]8.4 mg/dLLow8.5-10.5PProMedica Fostoria Community Hospital Comment on above:Performed By: #### CBCA, CMP, 52625-0, 35871-8, TSHR, 31930-2, 2777-1, 2639-3, 2157-6, 3024-7 #### [facility] ([id number]) [address], [address] [place], [place] [address]Hvukwnov [Moles/Vol]103 mmol/IBfxixl89-678MerKzvrzj Toledo HospitalComment on above:Performed By: #### CBCA, CMP, 57171-4, 16209-4, TSHR, 07173-3, 2777-1, 2639-3, 2157-6, 3024-7 #### [facility] ([id number]) [address], [address] [place], [place] [address]HU2 [Moles/Vol]31 mmol/DPtqzdg89-99LewRfimsiProMedica Fostoria Community Hospital Comment on above:Performed By: #### IJEOMA, CMP, 47998-9, 77056-8, TSHR, 67959-2, 2777-1, 2639-3, 2156-6, 7 #### [facility] ([id number]) [address], [address] [place], [place] [address]Ufwouqupwe [Mass/Vol]2.00 mg/dLHigh0.40-1.00ProSamaritan North Health CenterComment on above:Result Comment: METHOD TRACEABLE TO IDMS STANDARD Performed By: #### IJEOMA, CMP, 35171-8, 85130-4, TSHR, 95153-5, 7-1, 2638-3, 2156-6, 3024-04 #### [facility] ([id number]) [address], [address] [place], [place] [address]YSK/1.73 sq M.predicted among non-blacks MDRD (S/P/Bld) [Vol rate/Area]35 mL/min/{1.73_m2}Low>59ProSamaritan North Health CenterComment on above: Result Comment: Reported eGFR is based on the CKD-EPI 2020 equation that does not use a race coefficient.Performed By: #### ANISHA, CMP, 90612-5, 44714-9, TSHR, 18457-1, 2777-1, 9-3, 2156-6, 3023-7 #### [facility] ([id number]) [address], [address] [place], [place] [address]Ckdouln [Mass/Vol]137 mg/hOQyvz97-28LkbJpgbkuCommunity Regional Medical Center Comment on above:Performed By: #### CBCA, CMP, 72572-4, 58542-1, TSHR, 84445-5, 2777-1, 2639-3, 2157-6, 3024-7 #### [facility] ([id number]) [address], [address] [place], [place] [address]Rzclddhmf [Moles/Vol]4.1 mmol/LNormal3.5-5.0ProRegency Hospital Cleveland West HospitalComment on above:Performed By: #### CBCA, CMP, 56011-4, 32024-2, TSHR, 95856-2, 2777-1, 2639-3, 2157-6, 3024-7 #### [facility] ([id number]) [address], [address] [place], [place] [address]Dczzsee [Mass/Vol]6.2 g/dLNormal6.0-8.0ProSamaritan North Health Center Comment on above:Performed By: #### CBCA, CMP, 61654-5, 68389-3, TSHR, 93652-2, 2777-1, 2639-3, 2157-6, 3024-7 #### [facility] ([id number]) [address], [address] [place], [place] [address]Qiqgfc [Moles/Vol]142 mmol/KHmwizh792-958YtxLxujcu Toledo HospitalComment on above:Performed By: #### CBCA, CMP, 67847-9, 19331-8, TSHR, 14793-6, 7-1, 2639-3, 2157-6, 3024-7 #### [facility] ([id number]) [address], [address] [place], [place] [address]Epdw nitrogen [Mass/Vol]29 mg/dLHigh5-23ProSamaritan North Health CenterComment on above:Performed By: #### CBCA, CMP, 77443-4, 46212-0, TSHR, 66544-5, 2777-1, 2639-3, 2157-6, 3024-7 #### [facility] ([id number]) [address], [address] [place], [place] [address]Ucdternuofgcx metabolic panelon 96-66-9992Mgkqtsq [Mass/Vol]3.8 g/dL3.2 - 5.3 g/dLProMedica Health SystemALP [Catalytic activity/Vol]61 U/L39 - 130 U/LProMedica Health SystemALT No additional P-5'-P [Catalytic activity/Vol] 1446 U/LHigh0 - 31 U/LProMednoland hospital dothan Health SystemAnion gap [Moles/Vol]8 mmol/L5 - 15 mmol/LProMedica Health SystemAST [Catalytic activity/Vol]783 U/LHigh0 - 41 U/L ProMLakeWood Health Center SystemBilirubin [Mass/Vol]0.5 mg/dL0.3 - 1.2 mg/dLProMedica Health SystemCalcium [Mass/Vol]8.4 mg/dLLow8.5 - 10.5 mg/dLProMercy Health St. Rita'S Medical Center SystemChloride [Moles/Vol]103 mmol/L98 - 109 mmol/LProMedica Health SystemCO2 [Moles/Vol]31 mmol/L22 - 32 mmol/[facility] SystemCreatinine [Mass/Vol]2 mg/dLHigh0.40 - 1.00 mg/dLProMercy Health St. Rita'S Medical Center SystemeGFR (CKD-EPI)non-race futstsqph43Tng- PINBucyrus Community Hospital SystemGlucose [Mass/Vol]137 mg/mZGihj13 - 99 mg/dLSelect [facility]ty [facility] SystemInterpretation and review of laboratory results AbnormalProMercy Health St. Rita'S Medical Center SystemPotassium [Moles/Vol]4.1 mmol/L3.5 - 5.0 mmol/L ProMnorthport medical center Health SystemProtein [Mass/Vol]6.2 g/dL6.0 - 8.0 g/dLSelect [facility] SystemSodium [Moles/Vol]142 mmol/L134 - 146 mmol/LPrProwers Medical Center Health SystemUrea nitrogen [Mass/Vol]29 mg/dLHigh5 - 23 mg/dLSelect Medical Specialty [facility] SystemENA Panelon 83-71-7819Cifyscpnpgg Ql (U)[facility] View HospitalRibonucleoprotein extractable nuclear IgG Qn (S)[facility] HospitalCL-70 extractable nuclear Ab Ql (S)[facility] Hospitaljogrens syndrome-A extractable nuclear Ab Qn (S)[facility] Hospitaljogrens syndrome-B extractable nuclear IgG Qn (S)[facility] Hospitalmith extractable nuclear IgG Qn (S)[facility] HospitalFREE LIGHT CHAINSon 98-17-9168XXHR WILFREDO/LAMBD RATIO 0.41Seuvvh7.26-1.65ProSamaritan North Health CenterComment on above:Performed By: #### CBCA, CMP, 71405-0, 20218-3, TSHR, 70807-6, 2777-1, 2639-3, 2157-6, 3024-7 #### [facility] ([id number]) [address], [address] [place], [place] [address]CAWP KAPPA LT CHAINS0.76 mg/dLNormal0.33-1.94ProSamaritan North Health CenterComment on above:Performed By: #### ANISHA, [facility], 12824-0, 02772-5, TSHR, 72966-8, 2777-1, 2639-3, 2157-6, 3024-7 #### [facility] ([id number]) [address] [facility] [facility] [address] [address], [address] [place], [place] [address]LDNK LAMBDA LT CHAINS0.83 mg/dLNormal0.57-2.63ProSamaritan North Health CenterComment on above:Performed By: #### ANISHA, CMP, 30724-6, 13244-3, TSHR, 42762-2, 2777-1, 2639-3, 2157-6, 3024-7 #### [facility] ([id number]) [address], [address] [place], [place] [address]Bwen light chainson 87-58-5893Vbhauuzqvncvuk light chains.kappa.free (S) [Mass/Vol]0.76 mg/dL0.33 - 1.94 mg/dLProCoshocton Regional Medical CenterImmunoglobulin light chains.kappa.free/Immunoglobulin light chains.lambda (S) [Mass ratio]0.920.26 - 1.65ProCoshocton Regional Medical CenterImmunoglobulin light chains.lambda [Mass/Vol]0.83 mg/dL0.57 - 2.63 mg/dLPrime Healthcare ServicesGlomerular basement membrane IgG ABon 11-07-2024 Glomerular basement membrane IgG Qn (S)NINHarry S. Truman Memorial Veterans' HospitalGlomerular basement membrane IgG Qn (S)on 54-88-2538FscBhfbpkMercy Health Springfield Regional Medical CenterGlucose Glucometer (BldC) [Mass/Vol]on 88-39-8360Cbpwxdl [Mass/Vol]107 mg/nNGoiv22 - 99 mg/dLMercy Health Springfield Regional Medical CenterInterpretation and review of laboratory results AbnormalChildren's Hospital of PhiladelphiaGlucose [Mass/Vol]90 mg/dL 65 - 99 mg/dLChildren's Hospital of PhiladelphiaGlucose [Mass/Vol]107 mg/mKIzcx84-64NtxTvdgifCommunity Regional Medical CenterGlucose [Mass/Vol]90 mg/fORysccj37-68 [facility] Medical CenterGlucose [Mass/Vol]138 mg/nVYhgm55 - 99 mg/dLMercy Health Springfield Regional Medical CenterInterpretation and review of laboratory resultsAbnormalChildren's Hospital of PhiladelphiaGlucose [Mass/Vol]138 mg/gIHunq85-54 Community Regional Medical CenterIonized magnesiumon 81-92-9424Fwnskmkgw Ionized ISE (Bld) [Moles/Vol]0.74 mmol/L0.45 - 0.74 mmol/LPrAdena Regional Medical CenterMAGNESIUMon 04-62-3650Vurmsmknq [Mass/Vol]1.9 mg/dLNormal1.8-2.6[facility] Comment on above:Performed By: #### CBCA, CMP, 47716-7, 01964-7, TSHR, 86700-3, 2777-1, 2639-3, 2157-6, 3024-7 #### [facility] ([id number]) [address] [place] [address], [address] [place], [place] [address]Sttvfqkdwfp 13-88-6681Wjcxbsblq [Mass/Vol]1.9 mg/dL1.8 - 2.6 mg/dLProMedica Health SystemMagnesium Ionized ISE (Bld) [Moles/Vol]on 11-07-2024 ProMLakeWood Health Center SystemMagnesium [Moles/Vol]0.74 mmol/LNormal0.45-0.74ProSamaritan North Health CenterComment on above:Result Comment: NEW REFERENCE RANGEPerformed By: #### CBCA, CMP, 03172-5, 30896-9, TSHR, 94751-7, 2777-1, 2639-3, 2157-6, 3024-7 #### [facility] ([id number]) [address], [address] [place], [place] [address]Hqybftwud [Mass/Vol]on 24-46-4575Meaazljqffrqrv and review of laboratory resultsAbnormalProCoshocton Regional Medical CenterProCleveland Clinic Avon HospitalERUM EWSIABMQQ2207.2 ng/dPTpjl26.3-65.8ProSamaritan North Health CenterComment on above: Performed By: #### CBCA, CMP, 97823-1, 68853-8, TSHR, 28698-8, 2777-1, 2639-3, 2157-6, 3024-7 #### [facility] ([id number]) [address], [address] [place], [place] [address]Ynoiovnub, serumon 85-75-7022Hnnodxizl [Mass/Vol]2484.2 ng/mL High14.3 - 65.8 ng/mLMercy Health Springfield Regional Medical CenterNeutrophil cytoplasmic Ab panel IF (S)on 52-78-4997q-ANCANegativeNormalNegativeCommunity Regional Medical CenterComment on above:Performed By: #### CBCA, CMP, 67666-0, 56901-6, TSHR, 28860-9, 2777-1, 2639-3, 2157-6, 3024-7 #### [facility] ([id number]) [address], [address] [place], [place] [address]y-KBLSJgmfqiehKkznmiVowydhpvDieAqngto Toledo HospitalComment on above:Result Comment: NOTE Negative for cANCA and pANCA patterns by immunofluorescence. ADDITIONAL INFORMATION This test was developed and its performance characteristics determined by [facility] in a manner consistent with CLIA requirements. This test has not been cleared or approved by the U.S. Food and Drug Administration. Test Performed by: [facility] [address] [place] [address] [employer]: Ulysses Juarez Ph.D.; CLIA# [id number] By: #### CBCA, CMP, 50647-9, 23359-7, TSHR, 80658-4, 2777-1, 2639-3, 2157-6, 3024-7 #### [facility] ([id number]) [address], [address] [place], [place] [address]Je Panel Informationon 46-06-3369IhoMqeupfPrime Healthcare ServicesPHOSPHORUSon 59-75-0208Umvdsszlg [Mass/Vol]3.1 mg/dL Normal2.4-4.9Community Regional Medical CenterComment on above:Performed By: #### CBCA, CMP, 02377-3, 32533-4, TSHR, 75535-7, 2777-1, 2639-3, 2157-6, 3024-7 #### [facility] ([id number]) [address], [address] [place], [place] [address]QYLGHMIWAdo 75-37-5431Hocnatsgs [Moles/Vol]3.1 mmol/LLow3.5-5.0 Community Regional Medical CenterComment on above:Performed By: #### CBCA, CMP, 71873-7, 50767-4, TSHR, 67043-9, 2777-1, 2639-3, 2157-6, 3024-7 #### [facility] ([id number]) [address], [address] [place], [place] [address]Bcnyivtyl [Moles/Vol]3.5 mmol/LNormal3.5-5.0Community Regional Medical CenterComment on above:Performed By: #### CBCA, CMP, 13878-4, 23138-1, TSHR, 94349-5, 2777-1, 2639-3, 2157-6, 3024-7 #### [facility] ([id number]) [address], [address] [place], [place] [address]Jfsilunar [Moles/Vol]3.8 mmol/LNormal3.5-5.0ProSamaritan North Health CenterComment on above:Performed By: #### CBCA, CMP, 78270-1, 14291-2, TSHR, 15352-6, 2777-1, 2639-3, 2157-6, 3024-7 #### [facility] ([id number]) [address], [address] [place], [place] [address]Avqpshnrrvsq 33-89-8233Snkpkpudd [Mass/Vol]3.1 mg/dL2.4 - 4.9 mg/dLSelect Medical Specialty Hospital [facility] SystemPotassiumon 53-62-7272Qqznhkubd [Moles/Vol]3.1 mmol/LLow3.5 - 5.0 mmol/LProMedica Health SystemPotassium [Moles/Vol]3.5 mmol/L 3.5 - 5.0 mmol/LProMedica Health SystemPotassium [Moles/Vol]3.8 mmol/L3.5 - 5.0 mmol/LProMedica Health SystemPotassium [Moles/Vol]on 98-33-7946Zddymhvfbqjhui and review of laboratory resultsAbnormalProMedica Health SystemProMedica Health SystemProMediWestchester Medical CenterProDale Medical Center Health SystemProtein electrophoresis, serumon 28-18-9092Bwilvxd [Mass/Vol]3.4 g/dL3.4 - 5.3 g/dLSelect Medical Specialty [facility] SystemAlpha 1 globulin Elph [Mass/Vol]0.4 g/dL0.1 - 0.4 g/dLSelect Medical Specialty Hospital [facility] SystemAlpha 2 globulin Elph [Mass/Vol]0.8 g/dL0.4 - 1.1 g/dLProMedica Health SystemBeta globulin Elph [Mass/Vol]0.7 g/dL0.5 - 1.2 g/dLMercy Health Springfield Regional Medical Center Gamma globulin Elph [Mass/Vol]0.6 g/dL0.5 - 1.6 g/dLMercy Health Springfield Regional Medical Center Interpretation and review of laboratory resultsAbnormalMercy Health Springfield Regional Medical Center Pathologist interpretation (Bld) [Interp]Unremarkable protein distribution, no monoclonal bands.[facility] SystemProtein [Mass/Vol]5.9 g/dLLow6.0 - 8.0 g/dLChildren's Hospital of PhiladelphiaAlbumin [Mass/Vol]REQUEST CREDITED3.4 - 5.3 g/dLMercy Health Springfield Regional Medical CenterAlpha 1 globulin Elph [Mass/Vol] REQUEST CREDITED0.1 - 0.4 g/dLMercy Health Springfield Regional Medical CenterAlpha 2 globulin Elph [Mass/Vol]REQUEST CREDITED0.4 - 1.1 g/dLMercy Health Springfield Regional Medical CenterBeta globulin Elph [Mass/Vol]REQUEST CREDITED0.5 - 1.2 g/dLMercy Health Springfield Regional Medical CenterGamma globulin Elph [Mass/Vol]REQUEST CREDITED0.5 - 1.6 g/dLMercy Health Springfield Regional Medical Center Pathologist interpretation (Bld) [Interp]REQUEST CREDITEDMercy Health Springfield Regional Medical Center Protein [Mass/Vol]6.3 g/dL6.0 - 8.0 g/dLChristian HospitalERUM PROTEIN ELECTROPHORESISon 92-64-0025Axejema [Mass/Vol]3.4 g/dLNormal 3.4-5.3PNew Orleans East Hospitalica Galion HospitalComment on above:Performed By: #### SYED RAPHAEL, 49340-0, 83639-0, TSHR, 35160-9, 2777-1, 2639-3, 2157-6, 3024-7 #### [facility] ([id number]) [address], [address] [place], [place] [address]ZQFBK 1 GLOBULIN0.4 g/dLNormal0.1-0.4[facility] Comment on above:Performed By: #### SYED RAPHAEL, 42032-3, 80398-5, TSHR, 99186-0, 2777-1, 2639-3, 2157-6, 3024-7 #### [facility] ([id number]) [address], [address] [place], [place] [address]KEOVW 2 GLOBULIN0.8 g/dLNormal0.4-1.1PProMedica Fostoria Community Hospital Comment on above:Performed By: #### CBCA, CMP, 96211-4, 92617-8, TSHR, 33303-3, 2777-1, 2639-3, 2157-6, 3024-7 #### [facility] ([id number]) [address], [address] [place], [place] [address]LIFY GLOBULIN0.7 g/dLNormal0.5-1.2PProMedica Fostoria Community Hospital Comment on above:Performed By: #### CBCA, CMP, 69260-8, 78236-7, TSHR, 73470-9, 2777-1, 2639-3, 2157-6, 3024-7 #### [facility] ([id number]) [address], [address] [place] [address]QMK GLOBULIN0.6 g/dLNormal0.5-1.6[facility] Comment on above:Performed By: #### CBCA, CMP, 84854-0, 33491-7, TSHR, 78099-7, 2777-1, 2639-3, 2157-6, 3024-7 #### [facility] ([id number]) [address], [address] [place], [place] [address]EPPC. ELECTROPHORESIS INTERPUnremarkable protein distribution, no monoclonal bands.NormalProSamaritan North Health CenterComment on above:Performed By: #### CBCA, CMP, 56203-6, 87677-1, TSHR, 74483-9, 2777-1, 2639-3, 2157-6, 3024-7 #### [facility] ([id number]) [address] [facility], [address] [place], [place] [address]Dudalep [Mass/Vol]5.9 g/dLLow6.0-8.0ProSamaritan North Health Center Comment on above:Performed By: #### CBCA, CMP, 41065-4, 81731-0, TSHR, 46642-2, 2777-1, 2639-3, 2157-6, 3024-7 #### [facility] ([id number]) [address] [facility], [address] [address]Swcduplt [Catalytic activity/Vol]on 73-45-4678SBAPWOFO173.0 U/L High1.2-7.6ProSamaritan North Health CenterComment on above:Result Comment: NOTE REFERENCE INTERVAL: Aldolase Access complete set of age- and/or gender-specific reference intervals for this test in the [employer] Laboratory Test Directory ([employer]). Performed By: [employer] [address] [place] [address] Floor Runner: Jose Juan Rasheed MD, PhD CLIA Number: [id number] By: #### CBCA, CMP, 56180-3, 98740-3, TSHR, 48913-7, 2777-1, 2639-3, 2157-6, 302- #### [facility] ([id number]) [address] [place] [address] DIFFICILE BY PCRon 11-06-2024. difficile toxin genes JACKSON+probe Ql (Stl)TOXIGENIC C DIFF Negative (qualifier value) 027 NAP1 Negative (qualifier value)NormalPRNEGProSamaritan North Health CenterComment on above: Performed By: #### CBCA, CMP, 11836-3, 36400-5, TSHR, 10627-3, 2777-1, 2639-3, 2157-6, 3024-7 #### [facility] ([id number]) [address] [place] [address], [address] [address]C-smqxtyur proteinon 27-32-3751XCR [Mass/Vol]5.1 mg/dLHigh0.000 - 0.744 mg/dLMercy Health Springfield Regional Medical CenterC. difficile toxin genes JACKSON+probe Ql (Stl) on 07-16-4527NcfSqltflCoshocton Regional Medical CenterC3 complementon 14-09-1923Hgzkixhyon C3 [Mass/Vol]104 mg/dL86 - 184 mg/dLMercy Health Springfield Regional Medical CenterC4 complementon 62-75-5793Xmosmynglp C4 [Mass/Vol]35 mg/dL16 - 47 mg/dLMercy Health Springfield Regional Medical Center CBC AND AUTO DIFFon 02-62-7053ZSIEENUE BASOPHIL0.0 X10E9/LNormal0.0-0.2ProMedUniversity Hospitals Samaritan Medical CenterComment on above:Performed By: #### CBCA, CMP, 63584-4, 58655-2, TSHR, 75597-3, 2777-1, 2639-3, 2157-6, 3024-7 #### [facility] ([id number]) [address] [facility], [address] [place], [place] [address]RMRJYAFZ KHRREIKCAB48.9 X10E9/LHigh1.5-6.6ProSamaritan North Health CenterComment on above:Performed By: #### CBCA, CMP, 31707-1, 70345-0, TSHR, 19304-6, 2777-1, 2639-3, 2157-6, 3024-7 #### [facility] ([id number]) [address] [facility], [address] [place], [place] [address]Blodjytozkq (Bld) [#/Vol]0.0 10*3/uLNormal0.0-0.4Community Regional Medical CenterComment on above:Performed By: #### CBCA, CMP, 99630-5, 47647-8, TSHR, 53389-2, 2777-1, 2639-3, 2157-6, 3024-7 #### [facility] ([id number]) [address], [address] [place], [place] [address]Ipunpbsuzsj/100 WBC (Bld)0.0 %NormalProSamaritan North Health Center Comment on above:Performed By: #### CBCA, CMP, 69944-3, 32194-0, TSHR, 29510-1, 2777-1, 2639-3, 2157-6, 3024-7 #### [facility] ([id number]) [address], [address] [place], [place] [address]Ktuclbpjtoy/100 WBC (Bld)3.0 %NormalCommunity Regional Medical Center Comment on above:Performed By: #### CBCA, CMP, 42119-8, 98048-5, TSHR, 09468-1, 2777-1, 2639-3, 2157-6, 3024-7 #### [facility] ([id number]) [address], [address] [place], [place] [address]Jnahpskci (Bld) [#/Vol]1.0 10*3/uLHigh0-0.9Community Regional Medical CenterComment on above:Performed By: #### CBCA, CMP, 27917-9, 18511-8, TSHR, 62267-0, 2777-1, 2639-3, 2157-6, 3024-7 #### [facility] ([id number]) [address], [address] [place], [place] [address]GUL COUNT3.42 X10E12/LLow3.80-5.20[facility] Comment on above:Performed By: #### CBCA, CMP, 29217-8, 39761-9, TSHR, 36807-4, 2777-1, 2639-3, 2157-6, 3024-7 #### [facility] ([id number]) [address], [address] [place], [place] [address]IJP (Bld) [#/Vol]21.6 10*3/uLHigh4.0-11.0[facility] CenterComment on above:Performed By: #### CBCA, CMP, 49996-2, 82184-0, TSHR, 21561-7, 2777-1, 2639-3, 2157-6, 3024-7 #### [facility] ([id number]) [address], [address] [place], [place] [address]Odfeposmr/100 WBC (Bld)0.2 %NormalSelect Medical Specialty Hospital - [facility] SystemComment on above:Performed By: #### CBCA, CMP, 09904-9, 57275-5, TSHR, 42925-5, 2777-1, 2639-3, 2157-6, 3024-7 #### [facility] ([id number]) [address], [address] [place], [place] [address]Elmtlwiljxf distribution width (RBC) [Ratio]13.3 %Normal 11.5-15.0[facility] SystemComment on above:Performed By: #### CBCA, CMP, 43736-8, 98643-6, TSHR, 91900-4, 2777-1, 2639-3, 2157-6, 3024-7 #### [facility] ([id number]) [address], [address] [place], [place] [address]Ksopcmzkmk (Bld) [Volume fraction]30.3 %Tka97-66RdlBdxayl Health SystemComment on above:Performed By: #### CBCA, CMP, 23220-8, 61158-6, TSHR, 78689-8, 2777-1, 2639-3, 2157-6, 3024-7 #### [facility] ([id number]) [address], [address] [place], [place] [address]Olcalviirx (Bld) [Mass/Vol]10.4 g/dLLow11.7-15.5PChillicothe VA Medical Center SystemComment on above:Performed By: #### CBCA, CMP, 26898-2, 60394-3, TSHR, 28501-6, 2777-1, 2639-3, 2157-6, 3024-7 #### [facility] ([id number]) [address], [address] [place], [place] [address]Ixvxiyaehji (Bld) [#/Vol]0.7 10*3/uLLow1.0-3.5PMarion HospitalComment on above:Performed By: #### CBCA, CMP, 68045-5, 72803-9, TSHR, 15185-4, 2777-1, 2639-3, 2157-6, 3024-7 #### [facility] ([id number]) [address], [address] [place], [place] [address]ZWY (RBC) [Entitic mass]30.5 clXhrlxz71-63ZmiNoipip Health SystemComment on above:Performed By: #### CBCA, CMP, 64441-0, 98686-6, TSHR, 41945-7, 2777-1, 2639-3, 2157-6, 3024-7 #### [facility] ([id number]) [address], [address] [place], [place] [address]SIAV (RBC) [Mass/Vol]34.4 g/lKQtskpd24-70IklZgjrmg Health System Comment on above:Performed By: #### CBCA, CMP, 65732-0, 17129-6, TSHR, 49992-8, 2777-1, 2639-3, 2157-6, 3024-7 #### [facility] ([id number]) [address], [address] [place], [place] [address]KOR (RBC) [Entitic vol]89 uFFunmxg97-285KlkKocfmc Health System Comment on above:Performed By: #### CBCA, CMP, 79899-5, 17954-6, TSHR, 10879-7, 2777-1, 2639-3, 2157-6, 3024-7 #### [facility] ([id number]) [address], [address] [place], [place] [address]Lxrubecqn/100 WBC (Bld)4.6 %NormalProMercy Health St. Rita'S Medical Center SystemComment on above:Performed By: #### CBCA, CMP, 61069-1, 11526-0, TSHR, 28082-9, 2777-1, 2639-3, 2157-6, 3024-7 #### [facility] ([id number]) [address], [address] [place], [place] [address]Gmohcyexhxd/100 WBC (Bld)92.2 %NormalSelect Medical Specialty [facility] Comment on above:Performed By: #### CBCA, CMP, 72227-1, 10620-5, TSHR, 84664-6, 2777-1, 2639-3, 2157-6, 3024-7 #### [facility] ([id number]) [address], [address] [place], [place] [address]Hijbyhxo mean volume (Bld) [Entitic vol]7.9 fLNormal7-12 [facility] SystemComment on above:Performed By: #### CBCA, CMP, 66099-7, 88769-9, TSHR, 68926-9, 2777-1, 2639-3, 2157-6, 3024-7 #### [facility] ([id number]) [address], [address] [place], [place] [address]Zwwqabwcb (Bld) [#/Vol]242 10*3/qPWhgynu346-844JqzRkcwgm Health SystemComment on above:Performed By: #### CBCA, CMP, 22897-2, 49334-8, TSHR, 04523-7, 2777-1, 2639-3, 2157-6, 3024-7 #### [facility] ([id number]) [address], [address] [place], [place] [address]CFC auto differentialon 24-12-7337Yfkdknlql (Bld) [#/Vol]0 10*3/uLProMedica Health SystemEosinophils (Bld) [#/Vol]0 10*3/uLProMedica Health SystemEosinophils/100 WBC (Bld)0 %ProMedica Health SystemInterpretation and review of laboratory resultsAbnoUNC Health RexLymphocytes/100 WBC (Bld)3 %[facility] Medical CenterMonocytes (Bld) [#/Vol]1 10*3/uLBallad HealthNeutrophils (Bld) [#/Vol]19.9 10*3/uLBallad HealthRBC (Bld) [#/Vol]3.42 10*6/uLMarietta Memorial HospitalWBC corrected for nucl RBC Auto (Bld) [#/Vol]21.6HighNew Lifecare [facility] Total on 16-44-0839VN [Catalytic activity/Vol]58726 U/LHigh24 - 170 U/[facility] [Catalytic activity/Vol]on 67-91-0399Zelkeeqsuqxgvy and review of laboratory resultsAbnoHelen M. Simpson Rehabilitation Hospital COMPREHENSIVE METABOLIC PANELon 28-69-1756QUN [Catalytic activity/Vol]1426 U/L [facility]074 Dalton StreetComment on above:Performed By: #### CBCA, CMP, 77182-2, 03346-0, TSHR, 56329-3, 2777-1, 2639-3, 2157-6, 3024-7 #### [facility] ([id number]) [address], [address] [place], [place] [address]EHG/1.73 sq M.predicted among non-blacks MDRD (S/P/Bld) [Vol rate/Area]29 mL/min/{1.73_m2}Low>59Community Regional Medical CenterComment on above: Result Comment: Reported eGFR is based on the CKD-EPI 2020 equation that does not use a race coefficient.Performed By: #### CBCA, CMP, 94111-0, 58637-4, TSHR, 93782-5, 2777-1, 2639-3, 2157-6, 3024-7 #### [facility] ([id number]) [address], [address] [place], [place] [address]Eicmrru [Mass/Vol]3.7 g/dLNormal3.2-5.3PMarion Hospital Comment on above:Performed By: #### CBCA, CMP, 35076-8, 01843-7, TSHR, 08544-1, 2777-1, 2639-3, 2157-6, 3024-7 #### [facility] ([id number]) [address], [address] [place], [place] [address]KPI [Catalytic activity/Vol]63 U/HOhijnl67-874KdrNnowryMercy Health Springfield Regional Medical CenterComment on above:Performed By: #### CBCA, CMP, 62660-3, 74062-8, TSHR, 95148-8, 2777-1, 2639-3, 2157-6, 3024-7 #### [facility] ([id number]) [address], [address] [place], [place] [address]Qzype gap [Moles/Vol]12 mmol/LNormal5-15[facility] Comment on above:Performed By: #### CBCA, CMP, 58366-1, 26080-1, TSHR, 83693-1, 2777-1, 2639-3, 2157-6, 3024-7 #### [facility] ([id number]) [address], [address] [place], [place] [address]JUX [Catalytic activity/Vol]1597 U/LHigh0-41[facility] SystemComment on above:Performed By: #### CBCA, CMP, 50831-2, 71589-3, TSHR, 88019-5, 2777-1, 2639-3, 2157-6, 3024-7 #### [facility] ([id number]) [address], [address] [place], [place] [address]Yvdsaucym [Mass/Vol]0.4 mg/dLNormal0.3-1.2PChillicothe VA Medical Center SystemComment on above:Performed By: #### CBCA, CMP, 72055-7, 23900-8, TSHR, 05221-9, 2777-1, 2639-3, 2157-6, 3024-7 #### [facility] ([id number]) [address], [address] [place] [address]Ldnqgfs [Mass/Vol]7.7 mg/dLLow8.5-10.5PMarion Hospital Comment on above:Performed By: #### CBCA, CMP, 07455-3, 23625-0, TSHR, 85700-2, 2777-1, 2639-3, 2157-6, 3024-7 #### [facility] ([id number]) [address], [address] [place], [place] [address]Onqiagbb [Moles/Vol]106 mmol/VJkwlic07-969LiwHkevxa Health SystemComment on above:Performed By: #### CBCA, CMP, 56535-7, 85621-2, TSHR, 43662-2, 2777-1, 2639-3, 2157-6, 3024-7 #### [facility] ([id number]) [address], [address] [place] [address]FP4 [Moles/Vol]22 mmol/VVeuwqk72-21DwlVygaqoMarion Hospital Comment on above:Performed By: #### CBCA, CMP, 45435-0, 28777-4, TSHR, 16046-0, 2777-1, 2639-3, 2157-6, 3024-7 #### [facility] ([id number]) [address], [address] [place], [place] [address]Tjwpbxiywl [Mass/Vol]2.33 mg/dLHigh0.40-1.00[facility] SystemComment on above:Result Comment: METHOD TRACEABLE TO IDMS STANDARD Performed By: #### CBCA, CMP, 47545-0, 94455-7, TSHR, 61913-9, 2777-1, 2639-3, 2157-6, 3024-7 #### [facility] ([id number]) [address], [address] [place] [address]Tyljruz [Mass/Vol]155 mg/gLFxkp59-08AeqPibaskMercy Health Springfield Regional Medical Center Comment on above:Performed By: #### SYED RAPHAEL, 95884-7, 45978-2, TSHR, 03363-2, 2777-1, 2639-3, 2157-6, 3024-7 #### [facility] ([id number]) [address], [address] [place] [address]Rbzjrakem [Moles/Vol]4.1 mmol/LNormal3.5-5.0[facility] Medical CenterComment on above:Performed By: #### SYED RAPHAEL, 39031-2, 65472-0, TSHR, 39455-6, 2777-1, 2639-3, 2157-6, 3024-7 #### [facility] ([id number]) [address], [address] [place], [place] [address]Slssylc [Mass/Vol]6.3 g/dLNormal6.0-8.0[facility] Comment on above:Performed By: #### SYED RAPHAEL, 72712-2, 07198-8, TSHR, 55216-3, 2777-1, 2639-3, 2157-6, 3024-7 #### [facility] ([id number]) [address], [address] [place], [place] [address]Bukxli [Moles/Vol]140 mmol/ZSgqbku388-786AjpRxprgp Health System Comment on above:Performed By: #### IJEOMA, SYED, 37655-4, 84172-5, TSHR, 93480-8, 2777-1, 2639-3, 2157-6, 3024-7 #### [facility] ([id number]) [address], [address] [place], [place] [address]Lrda nitrogen [Mass/Vol]36 mg/dLHigh5-23[facility] Comment on above:Performed By: #### CBCA, CMP, 04155-3, 68316-8, TSHR, 20408-7, 2777-1, 2639-3, 2157-6, 3024-7 #### [facility] ([id number]) [address] [place] [address], [address] [place], [place] [address]EZV [Mass/Vol]on 30-95-9015Odpaadruweddge and review of laboratory resultsAbnoHelen M. Simpson Rehabilitation HospitalC REACTIVE PROTEIN5.1 mg/dLHigh0.000-0.744PProMedica Fostoria Community HospitalComment on above:Performed By: #### CBCA, CMP, 43457-6, 99109-7, TSHR, 99083-0, 2777-1, 2639-3, 2157-6, 3024-7 #### [facility] ([id number]) [address] [place] [address], [address] [place], [place] [address]Ltmsoaz.ionized (Bld) [Mass/Vol]on 10-99-6989UmaQzjxzf Health SystemIONIZED CALCIUM4.8 mg/dLNormal4.5-5.3PProMedica Fostoria Community HospitalComment on above:Performed By: #### CBCA, CMP, 06682-1, 73879-2, TSHR, 05351-4, 2777-1, 2639-3, 2157-6, 3024-7 #### [facility] ([id number]) [address] [place] [address], [address] [place], [place] [address]Yuqjqzvuxnonsl and review of laboratory resultsAbnoDepartment of Veterans Affairs [facility] SystemIONIZED CALCIUM4.3 mg/dLLow4.5-5.3PProMedica Fostoria Community HospitalComment on above:Performed By: #### CBCA, CMP, 42199-8, 90403-5, TSHR, 60168-2, 2777-1, 2639-3, 2157-6, 3024-7 #### [facility] ([id number]) [address] [place] [address], [address] [place], [place] [address]Bmozswurjj C3 [Mass/Vol]on 69-43-1108UEDZKNBQKR C3104 mg/dL Cxutju41-976LlbHvpagsSamaritan North Health CenterComment on above:Performed By: #### CBCA, CMP, 79177-2, 19456-5, TSHR, 94492-2, 2777-1, 2639-3, 2157-6, 3024-7 #### [facility] ([id number]) [address] [place] [address], [address] [place], [place] [address]Yopzbvwbej C4 [Mass/Vol]on 67-46-0855WTUMTHKKNJ C435 mg/dLNormal 16-47ProSamaritan North Health CenterComment on above:Performed By: #### CBCA, CMP, 91942-3, 54795-2, TSHR, 17792-7, 2777-1, 2639-3, 2157-6, 3024-7 #### [facility] ([id number]) [address] [place] [address], [address] [place], [place] [address]Jurjjgmmtgcef metabolic panelon 45-69-0552JLF No additional P-5'-P [Catalytic activity/Vol]1426 U/LHigh0 - 31 U/[facility] Methodist HospitaleGFR (CKD-EPI)non-race olmhhtuwt54Gea- [facility] HospitalInterpretation and review of laboratory resultsAbnormUpper Valley Medical CenterCreatinine (U) [Mass/Vol]on 65-84-1585LhvSzveueMercy Health Springfield Regional Medical CenterURINE CREATININE,RDM36.52 mg/dL NormalCommunity Regional Medical CenterComment on above:Performed By: #### CBCA, CMP, 78581-5, 47371-7, TSHR, 47077-8, 2777-1, 2639-3, 2157-6, 3024-7 #### [facility] ([id number]) [address] [place] [address], [address] [place], [place] [address]COYJQOKXBAZ IN PROCESS EEG TESTINGOrdered By: Documentation Systemgenerated on 81-60-7394IclNfrdmaMercy Health Springfield Regional Medical Center Work Phone: ENA PANELon 54-34-0064TSOP-SMITH AB IGG<0.2Normal<1.0 [facility] Hassan HospitalComment on above:Performed By: #### CBCA, CMP, 00712-3, 27018-7, TSHR, 41425-7, 2777-1, 2639-3, 2157-6, 3024-7 #### [facility] ([id number]) [address], [address] [place], [place] [address]ZT8 ANTIBODY<0.2Normal<1.0ProMedica Hassan HospitalComment on above:Performed By: #### CBCA, CMP, 25093-5, 23089-6, TSHR, 74161-0, 2777-1, 2639-3, 2157-6, 3024-7 #### [facility] ([id number]) [address], [address] [place], [place] [address]YJU ANTIBODY IGG<0.2Normal<1.0Pro[facility] Hassan HospitalComment on above:Performed By: #### CBCA, CMP, 58038-8, 19467-4, TSHR, 54942-0, 2777-1, 2639-3, 2157-6, 3024-7 #### [facility] ([id number]) [address], [address] [place], [place] [address]QBB 70 ANTIBODY<0.2Normal<1.0ProMedica Hassan HospitalComment on above:Performed By: #### CBCA, CMP, 46331-0, 44772-6, TSHR, 10644-4, 2777-1, 2639-3, 2157-6, 3024-7 #### [facility] ([id number]) [address], [address] [place], [place] [address]KZN ANTIBODY<0.2Normal<1.0ProMedica Hassan HospitalComment on above:Performed By: #### CBCA, CMP, 80868-4, 83575-2, TSHR, 70695-8, 2777-1, 2639-3, 2157-6, 3024-7 #### [facility] ([id number]) [address], [address] [place], [place] [address]LYO ANTIBODY<0.2Normal<1.0ProSamaritan North Health CenterComment on above:Performed By: #### CBCA, CMP, 93022-7, 09707-0, TSHR, 39724-0, 2777-1, 2639-3, 2157-6, 3024-7 #### [facility] ([id number]) [address], [address] [place], [place] [address]Widkclfqovb PCRon 59-78-2078Ljpbvxgjcsf PCR, PNegativeNormal NegativeProSamaritan North Health CenterComment on above:Result Comment: NOTE ADDITIONAL INFORMATION This test was developed and its performance characteristics determined by [facility] in a manner consistent with CLIA requirements. This test has not been cleared or approved by the U.S. Food and Drug Administration. Test Performed by: [place] [address] [employer]: Ulysses Juarez Ph.D.; CLIA# [id number] PANELon 11-06-2024 Gastrointestinal pathogens DNA and RNA [...] detected (qualifier value) SAPOVIRUS Not detected (qualifier value)NormalNDETProSamaritan North Health CenterComment on above:Performed By: #### CBCA, CMP, 71904-9, 96983-5, TSHR, 25659-3, 2777-1, 2639-3, 2157-6, 3024-7 #### [facility] ([id number]) [address], [address] [place], [place] [address]Xnfnllqwwlledwls pathogens DNA and RNA panel JACKSON+non-probe (Stl) on 68-17-5284Ewewjagmgr 40+41 DNA JACKSON+non-probe Ql (Stl)Not detectedNot Detected^Not DetectedMercy Health Springfield Regional Medical CenterAstrovirus subtypes 1-8 RNA JACKSON+non- probe Ql (Stl)Not detectedNot Detected^Not DetectedOhioHealth Hardin Memorial Hospital. cayetanensis DNA JACKSON+non-probe Ql (Stl)Not detectedNot Detected^Not Detected [facility] Medical CenterC. coli+jejuni+upsaliensis DNA JACKSON+non-probe Ql (Stl)Not detectedNot Detected^Not DetectedMercy Health Springfield Regional Medical CenterCryptosporidium sp DNA JACKSON+non-probe Ql (Stl)Not detectedNot Detected^Not DetectedMercy Health Springfield Regional Medical CenterE. coli enteroaggregative Sweetie plasmid aggR+aatA genes JACKSON+non-probe Ql (Stl)Not detectedNot Detected^Not DetectedMercy Health Springfield Regional Medical CenterE. coli enteropathogenic eae gene JACKSON+non-probe Ql (Stl)Not detectedNot Detected^Not DetectedMercy Health Springfield Regional Medical CenterE. coli enterotoxigenic ltA+st1a+st1b genes JACKSON+non-probe Ql (Stl)Not detectedNot Detected^Not DetectedMercy Health Springfield Regional Medical CenterE. coli stx1+stx2 genes JACKSON+non-probe Ql (Stl)Not detectedNot Detected^Not DetectedMercy Health Springfield Regional Medical CenterE. histolytica DNA JACKSON+non-probe Ql (Stl)Not detectedNot Detected^Not DetectedMercy Health Springfield Regional Medical CenterG. lamblia DNA JACKSON+non- probe Ql (Stl)Not detectedNot Detected^Not DetectedMercy Health Springfield Regional Medical Center Norovirus genogroup I+II RNA JACKSON+non-probe Ql (Stl)Not detectedNot Detected^Not DetectedMercy Health Springfield Regional Medical CenterP. shigelloides DNA JACKSON+non-probe Ql (Stl)Not detectedNot Detected^Not DetectedMercy Health Springfield Regional Medical CenterRotavirus A RNA JACKSON+non- probe Ql (Stl)Not detectedNot Detected^Not DetectedAsheville Specialty Hospital. enterica+bongori DNA JACKSON+non-probe Ql (Stl)Not detectedNot Detected^Not Detected [facility] Specialty Hospitalapovirus genogroups I+II+IV+V RNA JACKSON+non-probe Ql (Stl) Not detectedNot Detected^Not DetectedAsheville Specialty Hospitalhigella species+EIEC invasion plasmid antigen H ipaH gene JACKSON+non-probe Ql (Stl)Not detectedNot Detected^Not DetectedAsheville Specialty Hospitalpecimen source Nom (Body fld)STOOLProCoshocton Regional Medical CenterV. cholerae DNA JACKSON+non-probe Ql (Stl)Not detectedNot Detected^Not DetectedMercy Health Springfield Regional Medical CenterV. cholerae+parahaemolyticus+vulnificus DNA JACKSON+non-probe Ql (Stl)Not detectedNot Detected^Not DetectedMercy Health Springfield Regional Medical CenterY. enterocolitica DNA AJCKSON+non-probe Ql (Stl)Not detectedNot Detected^Not DetectedChildren's Hospital of PhiladelphiaGlomerular basement membrane IgG Qn (S)on 98-82-3223MNL IgG Ab<0.2 Normal<1.0Community Regional Medical CenterComment on above:Performed By: #### CBCA, CMP, 67149-0, 65823-9, TSHR, 62137-0, 2777-1, 2639-3, 2157-6, 3024-7 #### [facility] ([id number]) [address] [place] [address], [address] [place], [place] [address]Irmaymm Glucometer (BldC) [Mass/Vol]on 23-69-2837Aroyjnx [Mass/Vol]142 mg/fGOvne21 - 99 mg/dLMercy Health Springfield Regional Medical CenterInterpretation and review of laboratory resultsAbnormalProIndiana Regional Medical CenterGlucose [Mass/Vol]142 mg/cZYuxo32-88ZkcQplerrSamaritan North Health CenterGlucose [Mass/Vol]120 mg/fCGvfx57 - 99 mg/dLMercy Health Springfield Regional Medical CenterGlucose [Mass/Vol]142 mg/jDQjyf00 - 99 mg/dLMercy Health Springfield Regional Medical CenterInterpretation and review of laboratory resultsAbnormalChildren's Hospital of PhiladelphiaGlucose [Mass/Vol]142 mg/wPPywn29-98HvrFypkkiSamaritan North Health CenterGlucose [Mass/Vol]120 mg/dL Hlwq81-27IxuGmqvgvCommunity Regional Medical CenterGlucose [Mass/Vol]150 mg/yLLvuf82 - 99 mg/dL [facility] CenterInterpretation and review of laboratory resultsAbnormal [facility] Hospital of PhiladelphiaGlucose [Mass/Vol]150 mg/dLHigh 65-99Community Regional Medical CenterHIV 1&2 AB/AG Screen (P24 AG)on 03-15-2302IAV 1+2 Ab+HIV1 p24 Ag IA PwUeq-DabjpxvwJnr-Xgyinrmn^Non-ReactiveMercy Health Springfield Regional Medical Center HIV 1+2 Ab+HIV1 p24 Ag IA Qlon 85-70-9576LwiMwsfcyMercy Health Springfield Regional Medical CenterHIV 1 and 2 Ab/Ag ScreenNon-ReactiveNormilNRACMC Healthcare SystemComment on above: Result Comment: NEW TEST METHOD [...] results or diagnoses.Performed By: #### CBCA, CMP, 41934-3, 85364-0, TSHR, 36318-0, 2777-1, 2639-3, 2157-6, 3024-7 #### [facility] ([id number]) [address], [address] [place], [place] [address]Otabtvc calciumon 62-51-0571Zgnebxz.ionized (Bld) [Mass/Vol]4.8 mg/dL4.5 - 5.3 mg/dLMercy Health Springfield Regional Medical CenterCalcium.ionized (Bld) [Mass/Vol]4.3 mg/dLLow4.5 - 5.3 mg/dLMercy Health Springfield Regional Medical CenterLDHon 79-66-0900SZF [Catalytic activity/Vol]2584 U/JBvsj333 - 235 U/LPrAdena Regional Medical CenterLDH [Catalytic activity/Vol]on 83-79-1633Dwfzvkrnsgsjbc and review of laboratory results AbnormalChildren's Hospital of PhiladelphiaLDH2584 U/AYair228-605 [facility] HospitalComment on above:Performed By: #### CBCA, CMP, 22831-0, 06451-6, TSHR, 62989-8, 2777-1, 2639-3, 2157-6, 3024-7 #### [facility] ([id number]) [address] [place] [address], [address] [place], [place] [address]Gqfrzzpzbh - Chemistry and Chemistry - challengeon 11-06-2024 Sodium (U) [Moles/Vol]44 mmol/LNormalMercy Health Springfield Regional Medical CenterComment on above: Performed By: #### CBCA, CMP, 96528-9, 63064-8, TSHR, 07413-8, 2777-1, 2639-3, 2157-6, 3024-7 #### [facility] ([id number]) [address] [place] [address], [address] [place], [place] [address]Soviomzes [Mass/Vol]2.1 mg/dLNormal1.8-2.6[facility] SystemComment on above:Performed By: #### CBCA, CMP, 83795-3, 73125-0, TSHR, 66635-5, 2777-1, 2639-3, 2157-6, 3024-7 #### [facility] ([id number]) [address] [place] [address], [address] [place], [place] [address]Meiihvzdt [Mass/Vol]4.6 mg/dLNormal2.4-4.9[facility] SystemComment on above:Performed By: #### CBCA, CMP, 34770-4, 07027-5, TSHR, 08784-4, 2777-1, 2639-3, 2157-6, 3024-7 #### [facility] ([id number]) [facility], [address] [place], [place] [address]Pxyxydqefy - Microbiology and Antimicrobial susceptibilityon 11-06-2024. difficile toxin genes JACKSON+probe Ql (Stl)NegativePresumptive Negative^Presumptive NegativeProCoshocton Regional Medical CenterMyoglobin [Mass/Vol]on 15-79-0408Ixcgxosfmevslr and review of laboratory resultsAbnormalProIndiana Regional Medical CenterMyoglobin, serumon 47-30-8579Txhcwvqnx [Mass/Vol]2074.5 ng/fRZdjy35.3 - 65.8 ng/mLMercy Health Springfield Regional Medical CenterNo Panel Informationon 50-40-8642TuwHmiiymIndiana Regional Medical CenterNuclear Ab IA Ql (S)on 05-82-2325EPD Screen w/reflexNegativeNormalNEGProSamaritan North Health CenterComment on above:Result Comment: Testing performed using multiplex flow immunoassay. Eleven different antigens associated with systemic autoimmune diseases (dsDNA,Sm,Sm/JEWELRY SALES ASSOCIATE,JEWELRY SALES ASSOCIATE,Chromatin, SSA,SSB,Oma-1,Scl70,Ribo P,Centromere B) are included in this screening test.Performed By: #### CBCA, CMP, 60520-1, 77516-8, TSHR, 32458-6, 2777-1, 2639-3, 2157-6, 3024-7 #### [facility] ([id number]) [facility] [address], [address] [place], [place] [address]SMZMLXIBQcf 15-40-1776Yjmcmgnym [Moles/Vol]4.2 mmol/LNormal 3.5-5.0ProSamaritan North Health CenterComment on above:Performed By: #### CBCA, CMP, 77722-1, 39154-5, TSHR, 17781-9, 2777-1, 2639-3, 2157-6, 3024-7 #### [facility] ([id number]) [address] [place] [address], [address] [place], [place] [address]VUMJYYJ CREAT RATIOon 61-32-1938GYJACV URINE DKTMIOH744 mg/LHigh <120ProSamaritan North Health CenterComment on above:Performed By: #### IJEOMA, SYED, 87070-9, 80925-0, TSHR, 40552-3, 2777-1, 2639-3, 2157-6, 302-7 #### [facility] ([id number]) [address], [address] [place], [place] [address]R/PRO/BODY BUILDER RATIO CALC2.45High<0.2PProMedica Fostoria Community HospitalComment on above:Result Comment: Nephrotic Syndrome is associated with ratios >3.5 Performed By: #### SYED RAPHAEL, 44189-9, 35861-2, TSHR, 42493-5, 2777-1, 2639-3, 2156-6, 3023-7 #### [facility] ([id number]) [address], [address] [place], [place] [address]ASMVH CREATININE,RDM36.36 mg/dLNormalProSamaritan North Health Center Comment on above:Performed By: #### SYED RAPHAEL, 67789-7, 58103-8, TSHR, 21676-5, 2777-1, 2639-3, 2156-6, 3023-7 #### [facility] ([id number]) [address], [address] [place], [place] [address]Klijchxnclo 47-30-8904Hjjkgiwyx [Moles/Vol]4.2 mmol/L3.5 - 5.0 mmol/LProMedOhioHealth Grove City Methodist HospitalPotassium [Moles/Vol]on 08-43-5532FmzMngukjCleveland Clinic Avon HospitalERUM PROTEIN ELECTROPHORESISon 46-02-4875KLVGNLMZBYMMIZ CREDITEDNormal 3.4-5.3PProMedica Fostoria Community HospitalComment on above:Result Comment: QUANTITY NOT SUFFICIENTPerformed By: #### IJEOMA, SYED, 67675-1, 34439-3, TSHR, 99405-5, 2777-1, 2639-3, 2157-6, 302-7 #### [facility] ([id number]) [address], [address] [place], [place] [address]HKIQH 1 GLOBULINREQUEST CREDITEDNormal0.1-0.4ProRegency Hospital Cleveland West HospitalComment on above:Result Comment: QUANTITY NOT SUFFICIENTPerformed By: #### CBCA, CMP, 95361-6, 42864-7, TSHR, 92173-6, 2777-1, 2639-3, 2157-6, 3024-7 #### [facility] ([id number]) [address], [address] [place], [place] [address]BROLA 2 GLOBULINREQUEST CREDITEDNormal0.4-1.1ProMedThe MetroHealth System HospitalComment on above:Result Comment: QUANTITY NOT SUFFICIENTPerformed By: #### CBCA, CMP, 97306-3, 75889-9, TSHR, 63197-7, 2777-1, 2639-3, 2157-6, 3024-7 #### [facility] ([id number]) [address], [address] [place], [place] [address]DCWB GLOBULINREQUEST CREDITEDNormal0.5-1.2ProMedThe MetroHealth System HospitalComment on above:Result Comment: QUANTITY NOT SUFFICIENTPerformed By: #### CBCA, CMP, 55917-2, 01440-3, TSHR, 54632-1, 2777-1, 2639-3, 2157-6, 3024-7 #### [facility] ([id number]) [address], [address] [place], [place] [address]PIHSE GLOBULINREQUEST CREDITEDNormal0.5-1.6ProRegency Hospital Cleveland West HospitalComment on above:Result Comment: QUANTITY NOT SUFFICIENTPerformed By: #### CBCA, CMP, 22836-9, 23364-7, TSHR, 57910-5, 2777-1, 2639-3, 2157-6, 3024-7 #### [facility] ([id number]) [address] [place] [address] [address] [place], [place] [address]SNJD. ELECTROPHORESIS INTERPREQUEST CREDITEDNoOhioHealth Mansfield HospitalComment on above:Result Comment: QUANTITY NOT SUFFICIENTPerformed By: #### IJEOMA, CMP, 83358-8, 53703-9, TSHR, 35230-6, 2777-1, 2639-3, 2157-6, 3024-7 #### [facility] ([id number]) [address] [facility], [address] [place], [place] [address]Asqhlma [Mass/Vol]6.3 g/dLNormal6.0-8.0[facility] Comment on above:Result Comment: REQUEST CREDITED QUANTITY NOT SUFFICIENTPerformed By: #### IJEOMA, SYED, 24531-5, 71526-1, TSHR, 43566-5, 2777-1, 2639-3, 2157-6, 3024-7 #### [facility] ([id number]) [address] [facility], [address] [address]Sihlmi (U) [Moles/Vol]on 24-39-3137RcxStnsci Health System URINALYSISon 88-94-8329Hpnbamcbq Ql (U)NegativeNormalNEGSelect Medical Specialty Hospital - [facility] System Comment on above:Performed By: #### IJEOMA, SYED, 37192-2, 94932-2, TSHR, 15820-4, 2777-1, 2639-3, 2157-6, 3024-7 #### [facility] ([id number]) [address] [place] [address] [address] [place], [place] [address]Qpipa (U)YELLOWNormalYELLOWSelect Medical Specialty Hospital - Akron SystemComment on above:Performed By: #### ANISHA, CMP, 44316-0, 27150-7, TSHR, 00133-3, 2777-1, 2639-3, 2157-6, 3024-7 #### [facility] ([id number]) [address] [facility] [address] [place], [place] [address]yN (U)6.5 [pH]Normal5.0-8.5PMarion HospitalComment on above:Performed By: #### CBCA, CMP, 44906-7, 14507-1, TSHR, 03081-4, 2777-1, 2639-3, 2157-6, 3024-7 #### [facility] ([id number]) [address], [address] [place], [place] [address]AZPYO/HGBLargeAbnormalNEGProMedica Bean Station HospitalComment on above:Performed By: #### CBCA, CMP, 81398-5, 60349-0, TSHR, 90013-2, 2777-1, 2639-3, 2157-6, 3024-7 #### [facility] ([id number]) [address], [address] [place], [place] [address]Hftrgja Ql (U)NegativeNormalNEGProSt. Anthony'S Hospitalca [facility] Station HospitalComment on above:Performed By: #### CBCA, CMP, 44689-4, 57095-1, TSHR, 36976-8, 2777-1, 2639-3, 2157-6, 3024-7 #### [facility] ([id number]) [address], [address] [place], [place] [address]Toqvmvq Ql (U)NegativeNormalNEGProSt. Anthony'S Hospitalca [facility] Station HospitalComment on above:Performed By: #### CBCA, CMP, 05063-5, 96349-4, TSHR, 91953-1, 2777-1, 2639-3, 2157-6, 3024-7 #### [facility] ([id number]) [address], [address] [place], [place] [address]Wjasvqpnu esterase Test strip Ql (U)NegativeNormalNEGProMedica Bean Station HospitalComment on above:Performed By: #### CBCA, CMP, 86954-0, 47246-9, TSHR, 56779-2, 2777-1, 2639-3, 2157-6, 3024-7 #### [facility] ([id number]) [address], [address] [place], [place] [address]Vuhmpnv Ql (U)NegativeNormalNEGProMedica Bean Station HospitalComment on above:Performed By: #### CBCA, CMP, 16966-9, 24163-0, TSHR, 95403-2, 2777-1, 2639-3, 2157-6, 3024-7 #### [facility] ([id number]) [address], [address] [place], [place] [address]Whxdupv Ql (U)70 mg/dLAbnormalNEGProSt. Anthony'S Hospitalca [facility] Comment on above:Performed By: #### CBCA, CMP, 93330-2, 92112-6, TSHR, 01479-0, 2777-1, 2639-3, 2156-6, 3023- #### [facility] ([id number]) [address], [address] [place], [place] [address]Z.B.CELLS<0Yjcuga3-3RzsPiiikf [facility] HospitalComment on above: Performed By: #### CBCA, CMP, 25183-3, 58258-3, TSHR, 06586-7, 2777-1, 2639-3, 7-6, 3023- #### [facility] ([id number]) [address], [address] [place], [place] [address]Zhwukwij gravity (U) [Rel density]1.780Uhqtph7.003-1.035 [facility]ica [facility] HospitalComment on above:Performed By: #### CBCA, CMP, 86736-6, 73390-2, TSHR, 64831-4, 2777-1, 2639-3, 2157-6, 4-7 #### [facility] ([id number]) [address], [address] [place], [place] [address]LITZWLPW EPITHELIUM<9Mzfayj2-0UttRymebh [facility] HospitalComment on above:Performed By: #### CBCA, CMP, 65613-7, 78656-1, TSHR, 28375-6, 2777-1, 2639-3, 2157-6, 3024-7 #### [facility] ([id number]) [address], [address] [place] [address]IMTHQROHTCWEJAIwzfgpXVYCKPstJropcj [place] HospitalComment on above:Performed By: #### CBCA, CMP, 22890-3, 80518-7, TSHR, 45365-7, 2777-1, 2639-3, 2157-6, 3024-7 #### [facility] ([id number]) [address], [address] [place] [address]Jynrtejahd dipstick W Reflex Microscopic panel (U)URINE RECEIVED WITHOUT PRESERVATIVE-DELAYS IN TRANSPORT MAY AFFECT RESULTS.INTERPRET WITH CAUTION AND CLINICAL CORRELATION IS RECOMMENDED.NormalCommunity Regional Medical Center Comment on above:Performed By: #### CBCA, CMP, 98157-1, 46866-9, TSHR, 10688-9, 2777-1, 2639-3, 2157-6, 3024-7 #### [facility] ([id number]) [address], [address] [address]Pemmomdjgpbz (U) [Mass/Vol]mg/dLNormal<1.1PProMedica Fostoria Community HospitalComment on above:Performed By: #### CBCA, CMP, 14718-2, 23793-9, TSHR, 27259-6, 2777-1, 2639-3, 2157-6, 3024-7 #### [facility] ([id number]) [address], [address] [place] [address]A.B.CELLS1 /hpfNormal0-5PProMedica Fostoria Community HospitalComment on above:Performed By: #### CBCA, CMP, 46486-7, 94445-6, TSHR, 82846-5, 2777-1, 2639-3, 2157-6, 3024-7 #### [facility] ([id number]) [address] [facility], [address] [place], [place] [address]Hhrehplvrihp 38-07-6865Ccrkitxyyp cells Auto (Urine sed) [#/Area][facility] SystemGlucose (U) [Mass/Vol]NegativeNegative^Negative mg/dLMercy Health Springfield Regional Medical CenterHemoglobin Auto test strip Ql (U)LargeAbnormal Negative^NegativeSelect Medical Specialty Hospital - [facility] SystemInterpretation and review of laboratory resultsAbnormalProDale Medical Center Health SystemKetones (U) [Mass/Vol]Negative Negative^Negative mg/dLSelect Medical Specialty Hospital [facility] SystemLeukocyte esterase Auto test strip Ql (U)NegativeNegative^NegativeMercy Health Springfield Regional Medical CenterNitrite Auto test strip Ql (U)NegativeNegative^NegativeOhioHealth Marion General Hospital Health SystemProtein (U) [Mass/Vol]70 mg/dLAbnormalNegative^NegativeSelect Medical Specialty Hospital - [facility] SystemRBC Auto (Urine sed) [#/Area][facility]ville Specialty Hospitalpecific gravity Refractometry automated (U) [Rel density]1.0091.003 - 1.035[facility] SystemTurbidity Ql (U)CLEAR CLEAR^CLEARSelect Medical Specialty Hospital - [facility] SystemUrinalysis microscopic panel Auto (Urine sed) [#/Area]URINE RECEIVED WITHOUT PRESERVATIVE-DELAYS IN TRANSPORT MAY AFFECT RESULTS.INTERPRET WITH CAUTION AND CLINICAL CORRELATION IS RECOMMENDED.[facility] SystemUrobilinogen Qn (U)NINFPMarion HospitalWBC Auto (Urine sed) [#/Area]1PChillicothe VA Medical Center SystemSelect Medical Specialty Hospital [facility] SystemUrine Creatinine,Rdmon 72-41-5041Qpqxtrdfiz (U) [Mass/Vol]36.52 mg/dLSelect Medical Specialty Hospital - [facility] SystemUrine protein creatinine ratioon 43-06-0564Aumkdualyz (U) [Mass/Vol]36.36 mg/dL [facility] SystemInterpretation and review of laboratory resultsAbnormal ProMnorthport medical center Health SystemProtein (U) [Mass/Vol]890 mg/LHighNINF - 120 mg/L ProMLakeWood Health Center SystemProtein/Creatinine (U) [Ratio]2.45HighNINF - 0.2PSt. Francis Medical [facility] SystemACUTE HEPATITIS PANELon 96-37-7996BBDT HCV W/PCR REFLXNon-ReactiveNormalNRCTProSt. Anthony'S Hospitalca [place] HospitalComment on above: Result Comment: NEW TEST METHOD NOTE If recent infection suspected, recommend repeat testing (>2 months). Logxuq-ef-odvrnt ratio is <1.00.Performed By: #### CBCA, CMP #### [facility] ([id number]) [address], [address] [place], [place] [address]WSKOIIPTB A IGMNon-ReactiveNormalCTCommunity Regional Medical Center Comment on above:Result Comment: NEW TEST METHODPerformed By: #### CBCA, CMP #### [facility] ([id number]) [address], [address] [place], [place] [address]LXINNLSVC B CORE IGMNon-ReactiveNoBanner Boswell Medical CenterCTUniversity Hospitals Geneva Medical Center HospitalComment on above:Result Comment: NEW TEST METHODPerformed By: #### CBCA, CMP #### [facility] ([id number]) [address], [address] [place], [place] [address]UDJBWQGLE B SURF AGNon-ReactiveNormalCTUniversity Hospitals Geneva Medical Center HospitalComment on above:Result Comment: NEW TEST METHODPerformed By: #### CBCA, CMP #### [facility] ([id number]) [address], [address] [place], [place] [address]VKTVWRFJ BLOOD GASon 05-04-1237JSZCS'S TESTPassNormalProSt. Anthony'S Hospitalca [facility] [place] HospitalComment on above:Performed By: #### ABG ####[facility] ([id number])[address] [place], [place] [address]QOIG,DEFICIT9.0 MMOL/L High0.0-2.0ProSt. Anthony'S Hospitalca [facility] [place] HospitalComment on above:Performed By: #### ABG ####[facility] ([id number])[address] [place], [place] [address]Gzof .6 [degF]Fbvinl66.0ProMedica Hassan HospitalComment on above: Performed By: #### ABG ####[facility] ([address] [place] [address] [place], [place] [address]AYL9 (Bld) [Moles/Vol]17.0 mmol/GSis61-66TfaJfkulh Hassan HospitalComment on above:Performed By: #### ABG ####[facility] ([address] [place] [address] [place], [place] [address]WMKG. O2 CONC.21 %NormalProMedica Hassan HospitalComment on above:Performed By: #### ABG ####[facility] ([address] [place] [address] [place], [place] [address]Evflon (Bld) [Partial pressure]38 mm[Hg]Critically frs88-513NkyOshytg Hassan HospitalComment on above: Performed By: #### ABG ####[facility] ([address] [place] [address] [place], [place] [address]Tmpmqp saturation in Blood65.0 %Low>90ProMedica Hassan HospitalComment on above:Performed By: #### ABG ####[facility] ([address] [place] [address])[address] [place], [place] [address]KEVSBM SOURCERoomAirNormalProMedica Hassan HospitalComment on above:Performed By: #### ABG ####[facility] ([address] [place] [address] [place], [place] [address]CHH772.3 GRVEYleior39-98 [facility] HospitalComment on above:Performed By: #### ABG ####[facility] ([address] [place] [address] [place], [place] [address]jF (Bld)7.279 [pH]Low7.350-7.450ProMedica Hassan HospitalComment on above:Performed By: #### ABG ####[facility] ([address] [place] [address])[address] [place] [address] SAMPLE SITERRadNormalProMedica Hassan HospitalComment on above:Performed By: #### ABG ####[facility] ([id number])[address] [place], [place] [address]HWEBSJ TYPEARTERIALNormalProMedica Hassan HospitalComment on above: Performed By: #### ABG ####[facility] ([id number])[address] [place], [place] [address]OFGVR METABOLIC PANLon 84-59-1489Wwhdr gap [Moles/Vol]10 mmol/LNormal5-15Pro[facility]ica Hassan HospitalComment on above:Performed By: #### BMP ####[facility] ([id number])[address], [address], [place] [address]Kegahcm [Mass/Vol]7.7 mg/dLLow8.5-10.5ProMedica Hassan HospitalComment on above:Performed By: #### BMP ####[facility] ([id number])[address], [address], [place] [address]Tpbwjmxr [Moles/Vol]105 mmol/RYskshk85-825OerGkbxyk Hassan HospitalComment on above:Performed By: #### BMP ####[facility] ([id number])[address], [address], [place] [address]IC9 [Moles/Vol]24 mmol/MCnajhr52-22PsdOvmwjm [facility] Comment on above:Performed By: #### BMP ####[facility] ([id number])[address], [address], [place] [address]Nxzxdapuah [Mass/Vol]2.43 mg/dLHigh0.40-1.00ProMedica Hassan HospitalComment on above:Result Comment: METHOD TRACEABLE TO IDMS STANDARDPerformed By: #### BMP ####[facility] ([id number])[address] [address]QPN/1.73 sq M.predicted among non-blacks MDRD (S/P/Bld) [Vol rate/Area]28 mL/min/{1.73_m2} Low>59ProSamaritan North Health CenterComment on above:Result Comment: Reported eGFR is based on the CKD-EPI 2020 equation that does not use a race coefficient.Performed By: #### BMP ####[facility] ([id number])[address] [address]Qtdvmkd [Mass/Vol]105 mg/eSUmyw24-89QhdYfembpSamaritan North Health CenterComment on above:Performed By: #### BMP ####[facility] ([id number])[address] [address]Brhdcfypa [Moles/Vol]4.1 mmol/LNormal3.5-5.0[facility] Hospital Comment on above:Performed By: #### BMP ####[facility] ([id number])[address] [address]Wjcacv [Moles/Vol]139 mmol/TBskyia778-361FlfYadsnw [place] HospitalComment on above:Performed By: #### BMP ####[facility] ([id number])[address] [address]Kijj nitrogen [Mass/Vol]37 mg/dLHigh5-23ProRegency Hospital Cleveland West HospitalComment on above:Performed By: #### BMP ####[facility] ([id number])[address] [address]Zevbebqh Routine EEGon 41-47-2844PBQPYEGD TRANSCRIBED RESULTSBaseline Routine EEGOrdered By: Ray Mina on 28-08-1223JktPgturpMercy Health Springfield Regional Medical Center Work Phone: Basic Metabolic Panelon 37-74-5733Eofms gap [Moles/Vol]10 mmol/L5 - 15 mmol/LPrUniversity Hospitals Conneaut Medical Center SystemCalcium [Mass/Vol]7.7 mg/dLLow8.5 - 10.5 mg/dLMercy Health Springfield Regional Medical CenterChloride [Moles/Vol]105 mmol/L98 - 109 mmol/[facility] Health SystemCO2 [Moles/Vol]24 mmol/L22 - 32 mmol/L [facility] Medical CenterCreatinine [Mass/Vol]2.43 mg/dLHigh0.40 - 1.00 mg/dL [facility] Medical CentereGFR (CKD-EPI)non-race zxxjchlop13Smk- PINHarry S. Truman Memorial Veterans' HospitalGlucose [Mass/Vol]105 mg/oUWrlb05 - 99 mg/dLMercy Health Springfield Regional Medical Center Interpretation and review of laboratory resultsAbnoUNC Health Rex Potassium [Moles/Vol]4.1 mmol/L3.5 - 5.0 mmol/[facility] Health SystemSodium [Moles/Vol]139 mmol/L134 - 146 mmol/[facility] SystemUrea nitrogen [Mass/Vol]37 mg/dLHigh5 - 23 mg/dLChildren's Hospital of Philadelphia Blood Gas, Arterialon 72-14-9446Twqbwesr patency Wrist artery --pre arterial puncturePassMercy Health Springfield Regional Medical CenterBase deficit (Bld) [Moles/Vol]9 mmol/LHigh [facility] Medical CenterCO2 (Bld) [Partial pressure]36.3 mm[Hg][facility] Medical CenterHCO3 (Bld) [Moles/Vol]17 mmol/LLowMercy Health Springfield Regional Medical CenterInterpretation and review of laboratory resultsAbnormUpper Valley Medical CenterOxygen (Bld) [Partial pressure]38 mm[Hg]Critically lowMercy Health Springfield Regional Medical CenterOxygen therapy source and amount [CARE]RoomAirProCoshocton Regional Medical CenterOxygen/Inspired gas setting [Volume Fraction] Idvilhnlzy40 %[facility] Medical CenterpH (Bld)7.279 [pH]Low7.350 - 7.450As[facility]ville Specialty Hospitalpecimen site NarrativeRRadAsheville Specialty Hospitalpecimen type Nom (Spec)ARTERIALChildren's Hospital of PhiladelphiaCBC AND AUTO DIFFon 65-91-1096Gxtr form neutrophils/100 WBC (Bld) 3.8 %[facility] HospitalComment on above:Performed By: #### CBCA, CMP, 87944-7, 03374-0, TSHR, 69848-5, 2777-1, 2639-3, 2157-6, 3024-7 #### [facility] ([id number]) [address], [address] [place], [place] [address]Sujzlsnzxfu distribution width (RBC) [Ratio]13.7 %Normal 11.5-15.0Community Regional Medical CenterComment on above:Performed By: #### CBCA, CMP, 93773-0, 27256-9, TSHR, 91205-5, 2777-1, 2639-3, 2157-6, 3024-7 #### [facility] ([id number]) [address], [address] [place], [place] [address]Kolmrfgnhh (Bld) [Volume fraction]40.0 %Dfwxzt90-35LetDjxximSamaritan North Health CenterComment on above:Performed By: #### CBCA, CMP, 54764-5, 93963-7, TSHR, 03834-7, 2777-1, 2639-3, 2157-6, 3024-7 #### [facility] ([id number]) [address], [address] [place], [place] [address]Caloovsmfz (Bld) [Mass/Vol]13.4 g/nLBqhlmc89.7-15.5PProMedica Fostoria Community HospitalComment on above:Performed By: #### CBCA, CMP, 94293-6, 19408-6, TSHR, 05734-5, 2777-1, 2639-3, 2157-6, 3024-7 #### [facility] ([id number]) [address], [address] [place], [place] [address]Hnxuwcwyzxk (Bld) [#/Vol]1.8 10*3/uLNormal1.0-3.5PProMedica Fostoria Community HospitalComment on above:Performed By: #### CBCA, CMP, 50059-9, 29413-6, TSHR, 16172-2, 2777-1, 2639-3, 2157-6, 3024-7 #### [facility] ([id number]) [address], [address] [place], [place] [address]Zodnozwxche/100 WBC (Bld)5.8 %NormalProSamaritan North Health Center Comment on above:Performed By: #### CBCA, CMP, 27845-1, 16809-0, TSHR, 57913-9, 2777-1, 2639-3, 2157-6, 3024-7 #### [facility] ([id number]) [address] [facility], [address] [place], [place] [address]UUF (RBC) [Entitic mass]29.8 ewWjdcaw09-14FqcDdaecx [place] HospitalComment on above:Performed By: #### CBCA, CMP, 41332-4, 45888-3, TSHR, 22640-2, 2777-1, 2639-3, 2157-6, 3024-7 #### [facility] ([id number]) [address] [place], [place] [address]JRLR (RBC) [Mass/Vol]33.4 g/uEXaznfx23-90GbvKwbdhs [place] HospitalComment on above:Performed By: #### CBCA, CMP, 86169-1, 94991-6, TSHR, 26231-7, 2777-1, 2639-3, 2157-6, 3024-7 #### [facility] ([id number]) [address], [address] [place], [place] [address]CIH (RBC) [Entitic vol]89 dTKfbwzo97-835GluPeqvsy [place] HospitalComment on above:Performed By: #### CBCA, CMP, 86044-5, 01760-1, TSHR, 17338-2, 2777-1, 2639-3, 2157-6, 3024-7 #### [facility] ([id number]) [address], [address] [place], [place] [address]Pnedgqlis (Bld) [#/Vol]0.9 10*3/uLNormal0-0.9ProSamaritan North Health CenterComment on above:Performed By: #### CBCA, CMP, 45335-0, 21713-5, TSHR, 62094-9, 2777-1, 2639-3, 2157-6, 3024-7 #### [facility] ([id number]) [address] [address], [address] [place], [place] [address]Vojlvthnk/100 WBC (Bld)2.9 %NormalProSamaritan North Health Center Comment on above:Performed By: #### CBCA, CMP, 13532-4, 05383-3, TSHR, 83060-0, 2777-1, 2639-3, 2157-6, 3024-7 #### [facility] ([id number]) [address], [address] [place], [place] [address]Wbreqiyuihu (Bld) [#/Vol]28.8 10*3/uLHigh1.5-6.6ProSamaritan North Health CenterComment on above:Performed By: #### CBCA, CMP, 93117-7, 46600-7, TSHR, 85830-9, 2777-1, 2639-3, 2157-6, 3024-7 #### [facility] ([id number]) [address] [place], [place] [address]Zmlzcuni mean volume (Bld) [Entitic vol]7.5 fLNormal7-12 [facility] HospitalComment on above:Performed By: #### CBCA, CMP, 19442-4, 71243-1, TSHR, 42282-2, 2777-1, 2639-3, 2157-6, 3024-7 #### [facility] ([id number]) [address], [address] [place], [place] [address]Wzwldzweu (Bld) [#/Vol]297 10*3/xWIutazb022-114HzpEndhzm [facility] HospitalComment on above:Performed By: #### CBCA, CMP, 07145-9, 26223-7, TSHR, 97389-6, 2777-1, 2639-3, 2157-6, 3024-7 #### [facility] ([id number]) [address], [address] [place], [place] [address]TDA COUNT4.49 X10E12/LNormal3.80-5.20ProSt. Anthony'S Hospitalca [facility] Comment on above:Performed By: #### CBCA, CMP, 90724-9, 75458-5, TSHR, 84940-2, 2777-1, 2639-3, 2157-6, 3024-7 #### [facility] ([id number]) [address], [address] [place], [place] [address]NWJ morphology finding Nom (Bld)NORMALNormalProSt. Anthony'S Hospitalca [facility] HospitalComment on above:Performed By: #### CBCA, CMP, 83956-2, 43122-8, TSHR, 02990-0, 2777-1, 2639-3, 2157-6, 3024-7 #### [facility] ([id number]) [address], [address] [place], [place] [address]LMJ KFLHSKIGEY17.5 %NormalProSt. Anthony'S Hospitalca [facility] HospitalComment on above:Performed By: #### CBCA, CMP, 24429-8, 09092-5, TSHR, 53355-8, 2777-1, 2639-3, 2157-6, 3024-7 #### [facility] ([id number]) [address], [address] [place], [place] [address]SWZ (Bld) [#/Vol]31.5 10*3/uLHigh4.0-11.0ProMedica [facility] HospitalComment on above:Performed By: #### CBCA, CMP, 83142-7, 21584-0, TSHR, 89350-9, 2777-1, 2639-3, 2157-6, 3024-7 #### [facility] ([id number]) [address], [address] [place], [place] [address]HWN auto differentialon [id number] form neutrophils/100 WBC (Bld)3.8 %[facility] CenterErythrocyte distribution width (RBC) [Ratio] 13.7 %11.5 - 15.0 %[facility] SystemHematocrit (Bld) [Volume fraction]40 % 35 - 47 %[facility] CenterHemoglobin (Bld) [Mass/Vol]13.4 g/dL11.7 - 15.5 g/dLMercy Health Springfield Regional Medical CenterInterpretation and review of laboratory results AbnormalMercy Health Springfield Regional Medical CenterLymphocytes (Bld) [#/Vol]1.8 10*3/uLMercy Health Springfield Regional Medical CenterLymphocytes/100 WBC (Bld)5.8 %[facility] CenterMCH (RBC) [Entitic mass]29.8 pg27 - 34 pgPMarion HospitalMCHC (RBC) [Mass/Vol]33.4 g/dL32 - 36 g/dLMercy Health Springfield Regional Medical CenterMCV (RBC) [Entitic vol]89 fL80 - 100 fL [facility] CenterMonocytes (Bld) [#/Vol]0.9 10*3/uLMercy Health [facility] Monocytes/100 WBC (Bld)2.9 %[facility] CenterNeutrophils (Bld) [#/Vol]28.8 10*3/uLHighMercy Health Springfield Regional Medical CenterPlatelet mean volume (Bld) [Entitic vol]7.5 fL7 - 12 fLPChillicothe VA Medical Center SystemPlatelets (Bld) [#/Vol]297 10*3/uLMercy Health Springfield Regional Medical CenterPolymorphonuclear cells/100 WBC (Bld)NORMALMercy Health [facility] RBC (Bld) [#/Vol]4.49 10*6/uLAsheville Specialty Hospitalegmented neutrophils/100 WBC (Bld)87.5 %[facility] CenterWBC corrected for nucl RBC Auto (Bld) [#/Vol]31.5HRoxbury Treatment Center Totalon 12-31-4034FI [Catalytic activity/Vol]35045 U/LHigh24 - 170 U/LProMedica Cohen [facility] [Catalytic activity/Vol]06609 U/LHigh24 - 170 U/LProMedica Cohen [facility]'s Medical [facility] [Catalytic activity/Vol]on 59-50-3774GXL78607 U/DSpcv39-792GfpHleybv Hassan HospitalComment on above:Performed By: #### 2639-3, 2156-6 ####[facility] ([id number])[address], [address], [place] [address]WO[place] [address] U/BBceh10-650NcdJudwul [place]edo HospitalComment on above:Performed By: #### 2157-6, 2638-3 ####[facility] ([id number])[address], [address] [place] [address]Kauvpdvozjifes and review of laboratory resultsAbnormal [facility] Hospital of PhiladelphiaCPK30734 U/TEter65-023BsuZcgobo [place] HospitalComment on above:Performed By: #### CBCSusie, CMP #### [facility] ([id number]) [address], [address] [place], [place] [address]PLAZVFWDWFIDZ METABOLIC PANELon 72-14-3851Gravfdb [Mass/Vol]4.5 g/dLNormal3.2-5.3ProMedThe MetroHealth System HospitalComment on above:Performed By: #### CBCA, CMP, 44365-0, 55709-8, TSHR, 32706-4, 2777-1, 2639-3, 7-6, 3024-7 #### [facility] ([id number]) [address], [address] [place], [place] [address]SXP [Catalytic activity/Vol]86 U/HAfyxgi75-243DidYzamkz [place] HospitalComment on above:Performed By: #### CBCA, CMP, 94416-1, 16388-4, TSHR, 23294-7, 2777-1, 2639-3, 2157-6, 3024-7 #### [facility] ([id number]) [address], [address] [place] [address]KTU [Catalytic activity/Vol]216 U/LHigh0-31ProMedThe MetroHealth System HospitalComment on above:Performed By: #### CBCA, CMP, 08376-2, 70796-1, TSHR, 02069-0, 2777-1, 2639-3, 2157-6, 3024-7 #### [facility] ([id number]) [address], [address] [place], [place] [address]Buhtm gap [Moles/Vol]12 mmol/LNormal5-15ProRegency Hospital Cleveland West HospitalComment on above:Performed By: #### CBCA, CMP, 46086-5, 58689-9, TSHR, 33321-8, 2777-1, 2639-3, 2157-6, 3024-7 #### [facility] ([id number]) [address], [address] [place], [place] [address]DEM [Catalytic activity/Vol]488 U/LHigh0-41ProRegency Hospital Cleveland West HospitalComment on above:Performed By: #### CBCA, CMP, 90212-9, 69889-0, TSHR, 11282-3, 2777-1, 2639-3, 2157-6, 3024-7 #### [facility] ([id number]) [address], [address] [place], [place] [address]Nshqbebgo [Mass/Vol]0.4 mg/dLNormal0.3-1.2ProMedThe MetroHealth System HospitalComment on above:Performed By: #### CBCA, CMP, 02945-2, 06575-0, TSHR, 10956-8, 2777-1, 2639-3, 2157-6, 3024-7 #### [facility] ([id number]) [address], [address] [place], [place] [address]Miymthl [Mass/Vol]7.4 mg/dLLow8.5-10.5PProMedica Fostoria Community Hospital Comment on above:Performed By: #### CBCA, CMP, 37845-5, 77378-9, TSHR, 84449-7, 2777-1, 2639-3, 2157-6, 3024-7 #### [facility] ([id number]) [address], [address] [place], [place] [address]Ouiqczmf [Moles/Vol]108 mmol/PAgwviu83-974BrnDlitpv [place] HospitalComment on above:Performed By: #### CBCA, CMP, 90885-7, 41045-5, TSHR, 64933-0, 2777-1, 2639-3, 2157-6, 3024-7 #### [facility] ([id number]) [address], [address] [place], [place] [address]RH6 [Moles/Vol]16 mmol/VAii69-70RkaGbwxlfProMedica Fostoria Community HospitalComment on above:Performed By: #### CBCA, CMP, 42715-3, 94283-6, TSHR, 62370-8, 2777-1, 2639-3, 2157-6, 3024-7 #### [facility] ([id number]) [address], [address] [place], [place] [address]Nvboyssqzp [Mass/Vol]2.26 mg/dLHigh0.40-1.00ProSamaritan North Health CenterComment on above:Result Comment: METHOD TRACEABLE TO IDMS STANDARD Performed By: #### CBCA, CMP, 39003-4, 43291-0, TSHR, 99058-0, 2777-1, 2639-3, 2157-6, 3024-7 #### [facility] ([id number]) [address], [address] [place], [place] [address]TEZ/1.73 sq M.predicted among non-blacks MDRD (S/P/Bld) [Vol rate/Area]30 mL/min/{1.73_m2}Low>59ProSamaritan North Health CenterComment on above: Result Comment: Reported eGFR is based on the CKD-EPI 2020 equation that does not use a race coefficient.Performed By: #### SYED RAPHAEL, 63073-0, 67408-3, TSHR, 62849-8, 2777-1, 2639-3, 2157-6, 3023-7 #### [facility] ([id number]) [address], [address] [place], [place] [address]Ucltlny [Mass/Vol]104 mg/aCQnuw36-62DuoAbcijoCommunity Regional Medical Center Comment on above:Performed By: #### SYED RAPHAEL, 94334-1, 25085-4, TSHR, 15000-7, 2777-1, 2639-3, 2157-6, 3023-7 #### [facility] ([id number]) [address], [address] [place], [place] [address]Dkinwsdmu [Moles/Vol]4.0 mmol/LNormal3.5-5.0ProSamaritan North Health CenterComment on above:Performed By: #### SYED RAPHAEL, 93409-8, 35717-4, TSHR, 67534-4, 2777-1, 2639-3, 7-6, 3023-7 #### [facility] ([id number]) [address], [address] [place], [place] [address]Xnplmvd [Mass/Vol]7.2 g/dLNormal6.0-8.0[facility] Comment on above:Performed By: #### SYED RAPHAEL, 91023-9, 81675-5, TSHR, 41366-9, 2777-1, 2639-3, 2157-6, 3023-7 #### [facility] ([id number]) [address], [address] [place], [place] [address]Evsxoz [Moles/Vol]136 mmol/FOcliae743-955HjjXzsdylCommunity Regional Medical CenterComment on above:Performed By: #### CBCA, CMP, 48275-5, 40376-0, TSHR, 89078-0, 2777-1, 2639-3, 2157-6, 3024-7 #### [facility] ([id number]) [address], [address] [place], [place] [address]Payr nitrogen [Mass/Vol]37 mg/dLHigh5-23ProSamaritan North Health CenterComment on above:Performed By: #### CBCA, CMP, 94872-3, 57112-3, TSHR, 67261-0, 2777-1, 2639-3, 2157-6, 3024-7 #### [facility] ([id number]) [address], [address] [place], [place] [address]Druusiz.ionized (Bld) [Mass/Vol]on 75-24-3625Uawuvjlnhjirzi and review of laboratory resultsAbnormalSelect Medical Specialty Hospital - Akron SystemProMercy Health St. Rita'S Medical Center SystemIONIZED CALCIUM4.1 mg/dLLow4.5-5.3PProMedica Fostoria Community HospitalComment on above:Performed By: #### 83516-2 ####[facility] ([id number])[address], [address], [place] [address]Ztibsawjdxatw metabolic panelon 64-70-3901Yglzokn [Mass/Vol]4.5 g/dL3.2 - 5.3 g/dLProMedica Health SystemALP [Catalytic activity/Vol]86 U/L39 - 130 U/LProMedica Health SystemALT No additional P-5'-P [Catalytic activity/Vol]216 U/LHigh0 - 31 U/LProMedica Health SystemAnion gap [Moles/Vol]12 mmol/L5 - 15 mmol/LProMedica Health System AST [Catalytic activity/Vol]488 U/LHigh0 - 41 U/LProMedica Health System Bilirubin [Mass/Vol]0.4 mg/dL0.3 - 1.2 mg/dLProMedica Health SystemCalcium [Mass/Vol]7.4 mg/dLLow8.5 - 10.5 mg/dLProDale Medical Center Health SystemChloride [Moles/Vol]108 mmol/L98 - 109 mmol/LProMedica Health SystemCO2 [Moles/Vol]16 mmol/LLow22 - 32 mmol/LProMedica Health SystemCreatinine [Mass/Vol]2.26 mg/dL High0.40 - 1.00 mg/dLProMercy Health St. Rita'S Medical Center SystemeGFR (CKD-EPI)non-race hutotfhyi83 Low- PINFProMedMercy Health Kings Mills Hospital SystemGlucose [Mass/Vol]104 mg/gNFlum24 - 99 mg/dL [facility] SystemPotassium [Moles/Vol]4 mmol/L3.5 - 5.0 mmol/LProMedica Health SystemProtein [Mass/Vol]7.2 g/dL6.0 - 8.0 g/dLProMercy Health St. Rita'S Medical Center System Sodium [Moles/Vol]136 mmol/L134 - 146 mmol/LProMedica Health SystemUrea nitrogen [Mass/Vol]37 mg/dLHigh5 - 23 mg/dLMercy Health [facility] Regional Medical CenterFREE T4on 11-05-2024 Free T4 [Mass/Vol]0.82 ng/dLNormal0.61-1.60Community Regional Medical CenterComment on above:Performed By: #### CBCA, CMP #### [facility] ([id number]) [address] [place] [address], [address] [place], [place] [address]Rrzc T4 [Mass/Vol]on 23-52-1145VznJksuvjCoshocton Regional Medical CenterGlucose Glucometer (BldC) [Mass/Vol]on 06-81-3864Hbicmpr [Mass/Vol]112 mg/zNHecz88 - 99 mg/dLSelect Medical Specialty Hospital [facility] SystemInterpretation and review of laboratory results AbnormalProCoshocton Regional Medical CenterProMercy Health St. Rita'S Medical Center SystemGlucose [Mass/Vol]112 mg/vDHoar08-99LvcDydienCommunity Regional Medical CenterGlucose [Mass/Vol]108 mg/cPHohy79 - 99 mg/dLProMercy Health St. Rita'S Medical Center SystemInterpretation and review of laboratory results AbnormalProCoshocton Regional Medical CenterProMercy Health St. [facility] Medical Center SystemGlucose [Mass/Vol]108 mg/nSElxt71-16DciLqwwhvCommunity Regional Medical CenterGlucose [Mass/Vol]105 mg/nTLczr13 - 99 mg/dLMercy Health [facility] Medical CenterInterpretation and review of laboratory results AbnormalProCoshocton Regional Medical CenterProCoshocton Regional Medical CenterGlucose [Mass/Vol]105 mg/hCYldt36-94HjpYienpiCommunity Regional Medical CenterHepatitis panel, acuteon 60-71-0148FBS IgM IA VhNxx-HuwzfyeeBgs-Sahefjis^Non-ReactiveMercy Health [facility] Medical CenterHBV core IgM IA IyGlg-GgqyanrvTou-Ewqszmpm^Non-ReactiveMercy Health [facility] Medical CenterHBV surface Ag IA EzUxf-MrjerelkRgg-Mdtniyks^Non-ReactiveMercy Health [facility] Medical CenterHCV Ab IA LgFnc-SdhznhqtEhy-Tcxqzsub^Non-ReactiveMercy Health [facility] Medical CenterProCoshocton Regional Medical CenterHolter monitor studyon 49-16-9621CEBPUORQ TRANSCRIBED RESULTSMercy Health Springfield Regional Medical CenterIonized calciumon 81-08-7582Gospuyb.ionized (Bld) [Mass/Vol]4.1 mg/dLLow4.5 - 5.3 mg/dLMercy Health Springfield Regional Medical CenterL. pneumophila Ag IA Ql (U)on 38-74-7466EjsMivgylMercy Health Springfield Regional Medical CenterLEGIONELLA URINE AGon 11-05-2024L. pneumophila Ag IA Ql (U)LEGIONELLA URINE AG Negative (qualifier value) NEGATIVE FOR L.PNEUMOPHILA SEROGROUP 1 ANTIGENNormalCommunity Regional Medical Center Comment on above:Performed By: #### CBCSusie, CMP #### [facility] ([id number]) [address], [address] [place], [place] [address]Pfhxicr (P nancy) [Moles/Vol]on 08-16-2019HmtZchrvzMercy Health [facility] LACTATE W/REFLEX1.0 mmol/LNormal0.4-2.0Community Regional Medical CenterComment on above:Result Comment: Result did not trigger repeat Lactate, re-order if needed.Performed By: #### CBCA, CMP, 82071-9, 21880-6, TSHR, 41573- 9, 2777-1, 2639-3, 2157-6, 3024-7 #### [facility] ([id number]) [address], [address] [place], [place] [address]Lmhuzhl w/ Reflexon 91-10-0472Rwykpym (P nancy) [Moles/Vol]1 mmol/L0.4 - 2.0 mmol/LProMedica Health SystemLegionella antigen, urineon 11-05-2024L. pneumophila Ag IA Ql (U)NegativeNegative^NegativeProMedica University Hospitals St. [facility] SystemMAGNESIUMon 51-82-5083Oqpujabqj [Mass/Vol]2.5 mg/dLNormal1.8-2.6ProRegency Hospital Cleveland West HospitalComment on above:Performed By: #### CBCA, CMP, 72518-0, 67757-2, TSHR, 96392-8, 2777-1, 2639-3, 2157-6, 3024-7 #### [facility] ([id number]) [address] [address] [address], [address] [place], [place] [address]SUUF DNA JACKSON+probe Ql (Unsp spec)on 22-76-0553ZpeMmqypw Health SystemMRSA PCR NASALon 66-74-6926LAVS DNA JACKSON+probe Ql (Unsp spec)NegativeNormal NEGProRegency Hospital Cleveland West HospitalComment on above:Performed By: #### CBCA, CMP #### [facility] ([id number]) [address] [facility], [address] [place], [place] [address]Ahjywcakkwn 37-56-5790Jgjudhwtm [Mass/Vol]2.5 mg/dL1.8 - 2.6 mg/dLProMercy Health St. Rita'S Medical Center SystemMrsa Pcr nasal swabon 43-73-0439MZIZ DNA JACKSON+probe Ql (Unsp spec)NegativeNegative^NegativeProMercy Health St. Rita'S Medical Center SystemMyoglobin [Mass/Vol]on 07-11-3930GMZEJ VEZQWXKHC5256.5 ng/bYMftb12.3-65.8ProSamaritan North Health CenterComment on above:Performed By: #### 2639-3, 2157-6 ####[facility] ([id number])[address] [facility] [address], [address], [place] [address]HTKSL MYOGLOBIN 3785.4 ng/mQPuxv05.3-65.8ProMedica Hassan HospitalComment on above:Performed By: #### 2157-6, 2639-3 ####[facility] ([id number])[address], [place] [address]Naletyfjwbzbqi and review of laboratory resultsAbnoJefferson HealthERUM MYOGLOBIN 6843.0 ng/pGWzjm84.3-65.8ProSamaritan North Health CenterComment on above:Performed By: #### CBCA, CMP #### [facility] ([id number]) [address], [address] [place], [place] [address]Ambemugeo, serumon 55-00-2543Dpxdighra [Mass/Vol]3785.4 ng/mL High14.3 - 65.8 ng/mLMercy Health Springfield Regional Medical CenterMyoglobin [Mass/Vol]6843 ng/mLHigh 14.3 - 65.8 ng/mLMercy Health Springfield Regional Medical CenterNo Panel Informationon 11-05-2024 Interpretation and review of laboratory resultsAbnormAurora Medical Center in Summit SystemInterpretation and review of laboratory resultsAbEdgerton Hospital and Health Services SystemPHOSPHORUSon 28-24-0158Thxnzzpqv [Mass/Vol]6.4 mg/dLHigh2.4-4.9Community Regional Medical CenterComment on above: Performed By: #### CBCA, CMP, 15805-4, 37352-8, TSHR, 44497-1, 2777-1, 2639-3, 2157-6, 3024-7 #### [facility] ([id number]) [address], [address] [place], [place] [address]NMJTMEU AND INRon 71-96-0754VBK Coag (PPP) [Relative time]1.2 {INR}High0.8-1.1ProMedUniversity Hospitals Samaritan Medical CenterComment on above:Performed By: #### CBCA, CMP #### [facility] ([id number]) [address], [address] [place], [place] [address]KR Coag (PPP) [Time]13.6 sHigh9.8-13.2PProMedica Fostoria Community Hospital Comment on above:Performed By: #### CBCA, CMP #### [facility] ([id number]) [address], [address] [place], [place] [address]Lfrqzhoiufyf 75-10-1972Zkmjbtawr [Mass/Vol]6.4 mg/dLHigh2.4 - 4.9 mg/dLMercy Health Springfield Regional Medical CenterProcalcitoninon 92-72-3458Inpfjshugydcf IA [Mass/Vol]38.12 ng/mLHighNINF - 0.05 ng/mLMercy Health Springfield Regional Medical CenterProcalcitonin IA [Mass/Vol]on 00-09-2014Avsdgrnrfzmlnt and review of laboratory results AbnormalChildren's Hospital of PhiladelphiaPROCALCITONIN38.12 ng/mL High<0.05Community Regional Medical CenterComment on above:Result Comment: NOTE <0.50 ng/mL - Low risk of severe sepsis and/or septic shock. <2.00 ng/mL - Recommend retesting within 6-24 hours. >2.00 ng/mL - High risk of sepsis and/or septic shock.Performed By: #### CBCA, CMP, 90604-1, 04708-4, TSHR, 29472-7, 2777-1, 2639-3, 2157-6, 3024-7 #### [facility] ([id number]) [address], [address] [place], [place] [address]Htrlvpa & INRon 34-90-7004JHH Coag (PPP) [Relative time]1.2 {INR}HighMercy Health Springfield Regional Medical CenterInterpretation and review of laboratory results AbnormalMercy Health Springfield Regional Medical CenterPT Coag (PPP) [Time]13.6 [facility] SystemRESP PATHOGENS/CHZI-SrM-9ik 07-00-5370Eoosgeranjw pathogens DNA and RNA panel JACKSON+non-probe (Nph)SPECIMEN [...] 2 Not detected (qualifier value) NOTE The [employer] Respiratory Panel 2.1 (RP2.1) is a multiplexed [...] evaluating a patient with possible respiratory tract infection.NormalProSamaritan North Health CenterComment on above:Performed By: #### CBCA, CMP #### [facility] ([id number]) [address] [place] [address], [address] [place], [place] [address]Pqzwkuyhtzb pathogens DNA and RNA panel JACKSON+non-probe (Nph)on 16-25-9863Ttdjzganzu DNA JACKSON+non-probe Ql (Nph)Not detectedNot Detected^Not DetectedMercy Health Springfield Regional Medical CenterB. parapertussis OC7365 DNA JACKSON+non-probe Ql (Nph)Not detectedNot Detected^Not DetectedMercy Health Springfield Regional Medical CenterB. pertussis toxin promoter region JACKSON+non-probe Ql (Nph)Not detectedNot Detected^Not DetectedMercy Health Springfield Regional Medical CenterC. pneumoniae DNA JACKSON+non-probe Ql (Nph)Not detectedNot Detected^Not DetectedMercy Health Springfield Regional Medical CenterFLUAV RNA JACKSON+non-probe Ql (Nph)Not detectedNot Detected^Not DetectedMercy Health Springfield Regional Medical CenterFLUBV RNA JACKSON+non-probe Ql (Nph)Not detectedNot Detected^Not DetectedMercy Health Springfield Regional Medical CenterHCoV 229E RNA JACKSON+non-probe Ql (Nph)Not detectedNot Detected^Not Detected [facility] Medical CenterHCoV HKU1 RNA JACKSON+non-probe Ql (Nph)Not detectedNot Detected^Not DetectedMercy Health Springfield Regional Medical CenterHCoV NL63 RNA JACKSON+non-probe Ql (Nph) Not detectedNot Detected^Not DetectedMercy Health Springfield Regional Medical CenterHCoV OC43 RNA JACKSON+non-probe Ql (Nph)Not detectedNot Detected^Not DetectedMercy Health Springfield Regional Medical CenterhMPV RNA JACKSON+non-probe Ql (Nph)Not detectedNot Detected^Not Detected [facility] CenterM. pneumoniae DNA JACKSON+non-probe Ql (Nph)Not detectedNot Detected^Not DetectedMercy Health Springfield Regional Medical CenterParainfluenza virus 1 RNA JACKSON+non- probe Ql (Nph)Not detectedNot Detected^Not DetectedMercy Health [facility] Parainfluenza virus 2 RNA JACKSON+non-probe Ql (Nph)Not detectedNot Detected^Not DetectedMercy Health Springfield Regional Medical CenterParainfluenza virus 3 RNA JACKSON+non-probe Ql (Nph) Not detectedNot Detected^Not DetectedMercy Health Springfield Regional Medical CenterParainfluenza virus 4 RNA JACKSON+non-probe Ql (Nph)Not detectedNot Detected^Not DetectedMercy Health Springfield Regional Medical CenterRhinovirus+Enterovirus RNA JACKSON+non-probe Ql (Nph)Not detectedNot Detected^Not DetectedMercy Health Springfield Regional Medical CenterRSV RNA JACKSON+non-probe Ql (Nph)Not detectedNot Detected^Not DetectedAsheville Specialty HospitalARS-CoV-2 (COVID-19) RNA JACKSON+probe Ql (Resp)Not detectedNot Detected^Not DetectedAsheville Specialty Hospitalpecimen source Nom (Body fld)NASO PHARYNXChristian Hospital PNEUMONIAE AG Uon 11-05-2024S. pneumoniae Ag Ql (U)Negative NormalNEGCommunity Regional Medical CenterComment on above:Performed By: #### CBCA, CMP #### [facility] ([id number]) [address] [place] [address], [address] [place], [place] [address] Pneumoniae AG, urineon 11-05-2024S. pneumoniae Ag Ql (U) NegativeNegative^NegativeAsheville Specialty Hospital. pneumoniae Ag Ql (U)on 05-76-9007GwzSlewkhMercy Health Springfield Regional Medical CenterT4, freeon 64-25-4323Vqmq T4 [Mass/Vol]0.82 ng/dL0.61 - 1.60 ng/dLNovant Health Thomasville Medical Center WITH REFLEXon 22-13-0373TEC0.39 uIU/mLLow0.49-4.67ProSamaritan North Health CenterComment on above:Performed By: #### CBCA, CMP, 91893-1, 09840-8, TSHR, 59707-7, 2777-1, 2639-3, 2157-6, 3024-7 #### [facility] ([id number]) [address] [place] [address], [address] [place], [place] [address]QJH with Reflexon 9721Aqjkbrpqcrczmu and review of laboratory resultsAbnormalNovant Health Thomasville Medical Center Qn0.39 m[IU]/LLowProCoshocton Regional Medical CenterProCoshocton Regional Medical CenterVancomycin [Mass/Vol]on 70-99-9571VjgEngkbx Health UtyriiKPUDOBLSZA54.5 ug/mLNormal5.0-40.0Community Regional Medical CenterComment on above:Result Comment: Peak 30-40 ug/mL Trough 5-20 ug/ml Performed By: #### 07486-1 ####[facility] ([id number])[address] [place] [address], [address] [place] [address]NqtVrbsnq Health BliaouXMOMQGVXPN82.4 ug/mLNormal5.0-40.0Community Regional Medical CenterComment on above:Result Comment: Peak 30-40 ug/mL Trough 5-20 ug/ml Performed By: #### CBCSusie, CMP #### [facility] ([id number]) [address] [place] [address], [address] [place] [address]Xwgfrxdkco, randomon 52-74-9526Lccvpoyndf [Mass/Vol]10.5 ug/mL 5.0 - 40.0 ug/mLOhioHealth Marion General Hospital Health SystemVancomycin [Mass/Vol]28.4 ug/mL5.0 - 40.0 ug/mLSelect [facility] SystemBLOOD CULTUREon 66-41-1855Qaykabom identified Aer cx Nom (Bld)CULTURE RESULTS NO GROWTH 5 DAYSNoGerman HospitalBacteria identified Aer cx Nom (Bld)CULTURE RESULTS NO GROWTH 5 DAYSNormalOhio State University Wexner Medical CenterCBC AND AUTO DIFFon 11-04-2024 Band form neutrophils/100 WBC (Bld)5.0 %[address]ProChi [address] Joseph Health Regional [facility] – [place], TxComment on above:Performed By: #### CBCA, CMP, 1987-5, 74692-2, 48239-5, 5643-2, 2157-03 #### [facility] ([id number]) [address] [place] [address]Symftnhomsr distribution width (RBC) [Ratio]13.6 %Normal 11.5-15.0ProChi St. Joseph Health Regional Hospital – [place], TxComment on above:Performed By: #### SYED RAPHAEL, 1988-02, , 94470-8, 5642-, 2157-03 #### [facility] ([id number]) [address] [place] [address]Bwdpbbijmp (Bld) [Volume fraction]40.2 %Njgztd48-98IgxCwnfhhChi St. [facility] – [place], TxComment on above:Performed By: #### SYED RAPHAEL, 1988-02, , 70648-4, 5642-, 2157-03 #### [facility] ([id number]) [address] [place] [address] 89325Yfjsssjogv (Bld) [Mass/Vol]13.2 g/wOFpqwkr62.7-15.5PDayton VA Medical CenterComment on above:Performed By: #### SYED RAPHAEL, 1988-02, , 81723-4, 5642-11, 2157-03 #### [facility] ([id number]) [address] [place] [address] 02567Vgvfvidmjpx (Bld) [#/Vol]0.8 10*3/uLLow1.0-3.5PDayton VA Medical CenterComment on above:Performed By: #### SYED RAPHAEL, 1988-02, , 60756- 0, 5642-2, 2157-03 #### [facility] ([id number]) [address] [place] [address] [id number]/100 WBC (Bld)2.0 %NormalProChi [facility] [place], [place] Comment on above:Performed By: #### SYED RAPHAEL, 1988-02, , 51361-9, 5643-2, 2157-03 #### [facility] ([id number]) [address] [place] [address] 84212KCS (RBC) [Entitic mass]29.5 mbArowrk30-63CsoBvibefChi St. [facility] [place], [place]xComment on above:Performed By: #### CBCSusie, SYED, 1988-02, , 88282-6, 5642-2, 2157-03 #### [facility] ([id number]) [address] [place] [address] 41406WZZU (RBC) [Mass/Vol]32.9 g/iASdswny57-76KyeOiznfpChi [facility] [place], [place]xComment on above:Performed By: #### SYED RAPHAEL, 1988-02, , 96911-5, 5642-11, 2157-03 #### [facility] ([id number]) [address] [place] [address] 10375KVG (RBC) [Entitic vol]90 dDEpdpjq30-884ZavWcsaqr Fremont HospitalComment on above:Performed By: #### CBCSYED Richards, 1988-02, , 12034-1, 5642-11, 2157-03 #### [facility] ([id number]) [address] [place] [address] 44881Uiuuhzbmn (Bld) [#/Vol]3.6 10*3/uLHigh0-0.9[facility] Medical CenterComment on above:Performed By: #### CBCA, CMP, 1988-02, , 38966-6, 5642-, 2157-03 #### [facility] ([id number]) [address] [place] [address] 52497Ntffewfww/100 WBC (Bld)9.0 %NormalProChi [facility]. [facility] [place], [place] Comment on above:Performed By: #### CBCA, CMP, 1988-02, , 51104-9, 5643-2, 2157-03 #### [facility] ([id number]) [address] [place] [address] 30196Vuxcqfuxgpn (Bld) [#/Vol]35.8 10*3/uLHigh1.5-6.6ProChi St[facility] [place], TxComment on above:Performed By: #### SYED RAPHAEL, 1988-02, , 09535-7, 5643-2, 2157-03 #### [facility] ([id number]) [address] [place] [address] 36662CLMUXLMIK RBC1.0 /100 WBCNormal0.0-1[address] [facility] [place], TxComment on above:Performed By: #### SYED RAPHAEL, 1988-02, , 73044-8, 5642-, 2157-03 #### [facility] ([id number]) [address] [place] [address] 56031Ofcsfngs mean volume (Bld) [Entitic vol]7.6 fLNormal7-12 ProMHollywood Presbyterian Medical CenterComment on above:Performed By: #### SYED RAPHAEL, 1988-02, , 12379-0, 5642-, 2157-03 #### [facility] ([id number]) [address] [place] [address] 96575Mdveslenn (Bld) [#/Vol]344 10*3/ySDiimes348-654XkiNhkelx Fremont HospitalComment on above:Performed By: #### SYED RAPHAEL, 1988-02, , 36862-7, 5642-11, 2157-03 #### [facility] ([id number]) [address] [place] [address] 26849DDUGWQMYAIPVR5+AbnormalNONEProMedica Palo Verde HospitalComment on above:Performed By: #### SYED RAPHAEL, 1988-02, , 37837-2, 5643-2, 2157-03 #### [facility] ([id number]) [address] [place] [address] 18450IAE COUNT4.47 X10E12/LNormal3.80-5.20[facility] Comment on above:Performed By: #### IJEOMA, SYED, 1988-02, , 93195-2, 5643-2, 2157-03 #### [facility] ([id number]) [address] [place] [address] 98870OMW NKQKZMZGSJ18.0 %[address] [facility] [place], TxComment on above:Performed By: #### SYED RAPHAEL, 1988-02, , 64589-3, 5642-2, 2157-03 #### [facility] ([id number]) [address] [place] [address] 60539YWX (Bld) [#/Vol]40.2 10*3/uLHigh4.0-11.0ProChi St[facility] [place], TxComment on above:Performed By: #### IJEOMA, SYED, 1988-02, , 89879-1, 5642-2, 2157-03 #### [facility] ([id number]) [address] [place] [address] 67296QU [Catalytic activity/Vol]on 93-37-4242QLO54046 U/VZbkr10-021 [facility] Medical CenterComment on above:Performed By: #### IJEOMA, CMP, 1988-02, , 00362-9, 5643-2, 2157-03 #### [facility] ([id number]) [address] [place] [address] 06574ZPAHDPTUTYKFY METABOLIC PANELon 55-71-0151Ezwskru [Mass/Vol]4.5 g/dLNormal3.2-5.3ProMedica Columbia HospitalComment on above:Performed By: #### SYED RAPHAEL, 1988-02, , 16840-2, 5643-2, 2157-03 #### [facility] ([id number]) [address] [place] [address] 40912ZPL [Catalytic activity/Vol]96 U/NAvruox29-615QabFnhdsqChi St. [facility] [place], TxComment on above:Performed By: #### SYED RAPHAEL, 1988-02, , 21376-5, 5643-2, 2157-03 #### [facility] ([id number]) [address] [place] [address], [place] [address]GKK [Catalytic activity/Vol]122 U/LHigh0-31PDayton VA Medical CenterComment on above:Performed By: #### SYED RAPHAEL, 1988-02, , 70811-8, 5642-2, 2157-03 #### [facility] ([id number]) [address] [place] [address] 28618Iowxd gap [Moles/Vol]12 mmol/LNormal5-15ProChi St[facility] [place], TxComment on above:Performed By: #### SYED RAPHAEL, 1988-02, , 09812-6, 5642-2, 2157-03 #### [facility] ([id number]) [address] [place] [address] 44567RWN [Catalytic activity/Vol]356 U/LHigh0-41ProChi [facility] [place], TxComment on above:Performed By: #### SYED RAPHAEL, 1988-02, , 78824-9, 5642-2, 2157-03 #### [facility] ([id number]) [address] [place] [address] 58109Dmsgwfgfq [Mass/Vol]0.6 mg/dLNormal0.3-1.2ProMedica Columbia HospitalComment on above:Performed By: #### SYED RAPHAEL, 1988-02, , 90510-5, 5642-2, 2157-03 #### [facility] ([id number]) [address] [place] [address] 41201Qpdqbvj [Mass/Vol]8.2 mg/dLLow8.5-10.5PDayton VA Medical CenterComment on above:Performed By: #### SYED RAPHAEL, 1988-02, , 73859-8, 2, 2157-03 #### [facility] ([id number]) [address] [place] [address] 12496Vkonzjgc [Moles/Vol]99 mmol/YDdrcvc17-387ZhzCtfdyaChi St. [facility] [place], TxComment on above:Performed By: #### SYED RAPHAEL, 1988-02, , 64829-2, 5642-11, 2157-03 #### [facility] ([id number]) [address] [place] [address] 59698OS3 [Moles/Vol]19 mmol/CInc37-86NrqIucmeyDayton VA Medical Center Comment on above:Performed By: #### SYED RAPHAEL, 1988-02, , 15961-9, 5642-11, 2157-03 #### [facility] ([id number]) [address] [place] [address] 62375Uvjlpvegyt [Mass/Vol]1.88 mg/dLHigh0.40-1.00[facility] Medical CenterComment on above:Result Comment: METHOD TRACEABLE TO IDMS STANDARD Performed By: #### SYED RAPHAEL, 1988-02, , 57143-5, 5642-11, 2157-03 #### [facility] ([id number]) [address] [place] [address] 46230FUI/1.73 sq M.predicted among non-blacks MDRD (S/P/Bld) [Vol rate/Area]38 mL/min/{1.73_m2}Low>59ProChi St[facility] [place], TxComment on above: Result Comment: Reported eGFR is based on the CKD-EPI 2020 equation that does not use a race coefficient.Performed By: #### SYED RAPHAEL, 1988-02, , 76814- 0, 5642-11, 2157-03 #### [facility] ([id number]) [address] [place] [address] 70073Fbqgvon [Mass/Vol]88 mg/hGTgvdzh14-19WgoMplhzzOhio State University [facility] Medical Center Comment on above:Performed By: #### SYED RAPHAEL, 1988-02, , 09548-4, 5642-11, 2157-03 #### [facility] ([id number]) [address] [place] [address] 38764Gehksryag [Moles/Vol]2.8 mmol/LLow3.5-5.0ProChi [facility] [place], TxComment on above:Performed By: #### SYED RAPHAEL, 1988-02, , 65263-1, 5642-11, 2157-03 #### [facility] ([id number]) [address] [place] [address] 65996Hjbczpn [Mass/Vol]8.2 g/dLHigh6.0-8.0[facility] Comment on above:Performed By: #### SYED RAPHAEL, 1988-02, , 39707-6, 5642-11, 2157-03 #### [facility] ([id number]) [address] [place] [address] 52401Vybvxg [Moles/Vol]130 mmol/JXjn846-748VxwSmmdwnChi St. [facility] [place], TxComment on above:Performed By: #### SYED RAPHAEL, 1988-02, , 07080-7, 5642-11, 2157-03 #### [facility] ([id number]) [address] [facility], [place], [place] [address]Btrt nitrogen [Mass/Vol]27 mg/dLHigh5-23ProMedica Palo Verde HospitalComment on above:Performed By: #### CBCA, CMP, 1988-02, 57863-9, 68013-4, 5643-2, 7-6 #### [facility] ([id number]) [address] [facility], [place], [place] [address]GHL [Mass/Vol]on 11-04-2024 REACTIVE PROTEIN1.2 mg/dLHigh 0.000-0.744ProMedica Palo Verde HospitalComment on above:Performed By: #### CBCA, CMP, 1988-02, , 37126-5, 5643-2, 2157-03 #### [facility] ([id number]) [address] [facility], [place], [place] [address]AJ ABDOMEN AND PELVIS WO CONTon 23-04-5040PM ABDOMEN AND PELVIS WO CONTCT ABDOMEN AND [...] by Rohit Villarreal MD on 11/04/2024 8:25 PMNormalOhio State University Wexner Medical CenterCT BRAIN WO CONTon 69-70-0558LD BRAIN WO CONTCT BRAIN WO CONT EXAM:CT [...] Finalized by Subhash Colon on 11/04/2024 6:54 PMNormalOhio State University Wexner Medical Center ETHANOLon 21-75-8081Nmyheny [Mass/Vol]mg/dLNormal0.00-0.08[facility] Medical CenterComment on above:Result Comment: This report is intended for use in clinical monitoring or management of patients.Performed By: #### SYED RAPHAEL, 1988-02, 10996-8, 50190-5, 5643-2, 2157-03 #### [facility] ([id number]) [address] [place] [address] 74374SGT ( test) Ql (U)on 90-24-5922Eyex HCG ( test) Ql (U)NegativeNormalNEGOhio State University Wexner Medical CenterComment on above: Performed By: #### SYED RAPHAEL, 1988-02, , 68365-2, 5643-2, 2157-03 #### [facility] ([id number]) [address] [place] [address] 88621Idsfwsf (P nancy) [Moles/Vol]on 91-64-8854Dohubwn [Moles/Vol]1.2 mmol/LNormal0.4-2.0ProChi [facility] [place], TxComment on above:Performed By: #### SYED RAPHAEL, 1988-02, , 53401-6, 5642-2, 2157-03 #### [facility] ([id number]) [address] [place] [address] 56295XPKLZPC W/REFLEX2.9 mmol/LHigh0.4-2.0[facility] Comment on above:Performed By: #### 77474-5 #### [facility] ([id number]) [address] [place] [address] 59965QBBPORPSTqb 63-18-7805Gnuyattdw [Mass/Vol]2.8 mg/dLHigh1.8-2.6 ProMHollywood Presbyterian Medical CenterComment on above:Performed By: #### SYED RAPHAEL, 1988-02, , 85627-3, 5642-11, 2157-03 #### [facility] ([id number]) [address] [place] [address] 04995Xmyqpghohuspb IA [Mass/Vol]on 61-81-0018GMAQCCOGHUMHO50.05 ng/mLHigh<0.05ProChi [facility] [place], TxComment on above:Result Comment: NOTE <0.50 ng/mL - Low risk of severe sepsis and/or septic shock. <2.00 ng/mL - Recommend retesting within 6-24 hours. >2.00 ng/mL - High risk of sepsis and/or septic shock.Performed By: #### SYED RAPHAEL, 1988-02, , 29775-7, 56-2, 2157-03 #### [facility] ([id number]) [address] [place] [address] 34689KZTZ/FLU A+B/RSV by NAAT/Molecularon 38-61-2398QFZS/FLU A+B/RSV by NAAT/MolecularFLU A PCR Negative (qualifier [...] operators who are performing tests using either [employer] or [employer] systems and is limited to laboratories that [...] specimen repeat. Fact Sheet for Healthcare Providers: https://www.fda.gov/media/266169/download Fact Sheet for Patients: https://www.fda.gov/media/394034/downloadNormalProMedica Palo Verde HospitalComment on above:Performed By: #### COVFLR #### [facility] ([id number]) [address] [place] [address], FIRST FLOOR [address] CULTUREon 71-61-7584Lmgbacbv identified Cx Nom (U)CULTURE RESULTS 10,000 to 50,000 ORGANISMS/mL NORMAL URO GENITAL FLORANormalProChi St. [facility] [place], TxComment on above: Performed By: #### SYED RAPHAEL, 1988-02, , 08433-8, 5643-2, 2157-03 #### [facility] ([id number]) [address] [place] [address] [place] [address]KOY MACROSCOPIC NURon 06-91-3140ZSNUBGUKX NURNegativeNormalNEG [facility] Verde HospitalComment on above:Performed By: #### SYED RAPHAEL, 1988-02, , 33687-0, 5643-2, 2157-03 #### [facility] ([id number]) [address] [place] [address] [place] [address]KZQSV/HGB NURLargeAbnormalNEGProChi St. [facility] [place], TxComment on above:Performed By: #### SYED RAPHAEL, 1988-02, , 09517-3, 5643-2, 2157-03 #### [facility] ([id number]) [address] [place] [address] [place] [address]LCHTWVX NURNegativeNormalNEGProChi St. [facility] [place], TxComment on above:Performed By: #### SYED RAPHAEL, 1988-02, , 52975-8, 5643-2, 2157-03 #### [facility] ([id number]) [address] [place] [address] [place] [address]DXTYSFK NURNegativeNormalNEGProChi St. [facility] [place], TxComment on above:Performed By: #### SYED RAPHAEL, 1988-02, , 77037-2, 5643-2, 2157-03 #### [facility] ([id number]) [address] [place] [address] [place] [address]TRYOXFKFZ ESTERASE NURTraceAbnormalNEGProChi St. [facility] [place], TxComment on above:Performed By: #### IJEOMA, SEYD, 1988-02, , 81216-4, 5643-2, 2157-03 #### [facility] ([id number]) [address] [place] [address] 92983JZCWHYJ NURNegativeNormalNEGOhio State University Wexner Medical CenterComment on above:Performed By: #### IJEOMA, SYED, 1988-02, , 10146-8, 5643-2, 2157-03 #### [facility] ([id number]) [address] [place] [address] 52423TN NUR5.1Umyydu2.0-8.5PDayton VA Medical CenterComment on above:Performed By: #### SYED RAPHAEL, 1988-02, , 71765-1, 5642-2, 2157-03 #### [facility] ([id number]) [address] [place] [address] 62487TUTQJRW UNO082 mg/dLAbnormalNEGOhio State University [facility] Medical Center Comment on above:Performed By: #### SYED RAPHAEL, 1988-02, , 91651-6, 5642-2, 2157-03 #### [facility] ([id number]) [address] [place] [address] 62920PBHAXNYL GRAVITY NUR1.461Atsbdc0.003-1.035ProChi [facility] [place], TxComment on above:Performed By: #### SYED RAPHAEL, 1988-02, , 41860-6, 5643-2, 2157-03 #### [facility] ([id number]) [address] [place] [address] 69106QISXFKHXKTQZ NUR0.2 eu/dLNormal<1.1PDayton VA Medical Center Comment on above:Performed By: #### SYED RAPHAEL, 1988-02, , 28262-4, 5643-2, 6 #### [facility] ([id number]) [address] [facility], [place], [place] [address]VB CHEST 1 VWon 15-74-4288RE CHEST 1 VWXR CHEST 1 VW XR [...] Kane Burger MD on 11/04/2024 9:06 PMNormalProMedica Palo Verde HospitallamoTRIgine [Mass/Vol]on 37-80-9585Mplllcaceca, S0.9 mcg/mLLow3.0-15.0 ProMHollywood Presbyterian Medical CenterComment on above:Result Comment: NOTE ADDITIONAL INFORMATION This test was developed and its performance characteristics determined by [facility] in a manner consistent with CLIA requirements. This test has not been cleared or approved by the U.S. Food and Drug Administration. Test Performed by: [facility] [address] [place] [address] [employer]: Ulysses Juarez Ph.D.; CLIA# [id number] By: #### CBCA, [facility], 1987-, 40569-3, 98503-7, 5643-2, 2157-03 #### [facility] ([id number]) [address], [place] [address]zviCSWRNsglpx [Mass/Vol]on 29-28-9862Orzajnokbahxf, S1.6 mcg/mL Low10.0 - 40.0ProChi [facility] [place], TxComment on above:Result Comment: NOTE ADDITIONAL INFORMATION This test was developed and its performance characteristics determined by [facility] in a manner consistent with CLIA requirements. This test has not been cleared or approved by the U.S. Food and Drug Administration. Test Performed by: [facility] [address] [place] [address] [employer]: Ulysses Juarez Ph.D.; CLIA# [id number] By: #### SYED RAPHAEL, 1988-02, 71224-0, 80256-9, 5643-2, 2157-6 #### [facility] ([id number]) [address] [place] [address], [place], [place] [address]AHV AND AUTO DIFFon 36-09-2748CVWZRFJC BASOPHIL0.1 X10E9/L Normal0.0-0.2ProMedica Galion HospitalComment on above:Performed By: #### CBCSusie, CMP #### [facility] ([id number]) [address], [address] [place], [place] [address]DAJKERTT NEUTROPHIL7.8 X10E9/LHigh1.5-6.6ProSamaritan North Health CenterComment on above:Performed By: #### CBCSusie, CMP #### [facility] ([id number]) [address], [address] [place], [place] [address]Skdmupjka/100 WBC (Bld)1.3 %NormalCommunity Regional Medical Center Comment on above:Performed By: #### CBCA, CMP #### [facility] ([id number]) [address], [address] [place], [place] [address]Ukmklcvqxwy (Bld) [#/Vol]0.4 10*3/uLNormal0.0-0.4ProSt. Anthony'S Hospitalca [facility] Station HospitalComment on above:Performed By: #### CBCA, CMP #### [facility] ([id number]) [address] [place], [place] [address]Jxkozmfbvtt/100 WBC (Bld)3.3 %NormalCommunity Regional Medical Center Comment on above:Performed By: #### CBCA, CMP #### [facility] ([id number]) [address], [address] [place], [place] [address]Uizbaebusug distribution width (RBC) [Ratio]13.4 %Normal 11.5-15.0ProRegency Hospital Cleveland West HospitalComment on above:Performed By: #### CBCA, CMP #### [facility] ([id number]) [address], [address] [place], [place] [address]Ncwnamdmzp (Bld) [Volume fraction]39.8 %Hromju74-12MuoWjabxv [place] HospitalComment on above:Performed By: #### CBCA, CMP #### [facility] ([id number]) [address], [address] [place], [place] [address]Thoktfontq (Bld) [Mass/Vol]13.3 g/tMQsnyav96.7-15.5ProMedThe MetroHealth System HospitalComment on above:Performed By: #### CBCA, CMP #### [facility] ([id number]) [address] [place], [place] [address]Tdknyijlrzg (Bld) [#/Vol]2.4 10*3/uLNormal1.0-3.5Pro[facility]ica [place] [facility] HospitalComment on above:Performed By: #### CBCA, CMP #### [facility] ([id number]) [address], [address] [place], [place] [address]Bglcsbgbnlc/100 WBC (Bld)21.2 %NormalCommunity Regional Medical Center Comment on above:Performed By: #### CBCA, CMP #### [facility] ([id number]) [address], [address] [place], [place] [address]UON (RBC) [Entitic mass]30.0 jaXrmuwz37-58KznUrdrsw [facility] HospitalComment on above:Performed By: #### CBCA, CMP #### [facility] ([id number]) [address], [address] [place], [place] [address]TSLI (RBC) [Mass/Vol]33.5 g/qUHkwhpq95-74UtvScivjz [facility] HospitalComment on above:Performed By: #### CBCA, CMP #### [facility] ([id number]) [address], [address] [place], [place] [address]ZQF (RBC) [Entitic vol]89 xKZjfpes29-455JkvAysupy [place] HospitalComment on above:Performed By: #### CBCA, CMP #### [facility] ([id number]) [address], [address] [place], [place] [address]Oolbfajxc (Bld) [#/Vol]0.7 10*3/uLNormal0-0.9ProRegency Hospital Cleveland West HospitalComment on above:Performed By: #### CBCA, CMP #### [facility] ([id number]) [address], [address] [place], [place] [address]Bzizbhfhg/100 WBC (Bld)6.3 %NormalCommunity Regional Medical Center Comment on above:Performed By: #### CBCA, CMP #### [facility] ([id number]) [address], [address] [place], [place] [address]Mwhmqitldod/100 WBC (Bld)67.9 %NormalCommunity Regional Medical Center Comment on above:Performed By: #### CBCA, CMP #### [facility] ([id number]) [address], [address] [place], [place] [address]Jxhgotov mean volume (Bld) [Entitic vol]7.7 fLNormal7-12 ProM[facility] [place] HospitalComment on above:Performed By: #### IJEOMA, CMP #### [facility] ([id number]) [address], [address] [place], [place] [address]Emjffwbvm (Bld) [#/Vol]333 10*3/hFKgtizj634-479GiiXrsltg Hassan HospitalComment on above:Performed By: #### CBCSusie, CMP #### [facility] ([id number]) [address], [address] [place], [place] [address]LQB COUNT4.45 X10E12/LNormal3.80-5.20Pro[facility] Comment on above:Performed By: #### IJEOMA, CMP #### [facility] ([id number]) [address], [address] [place], [place] [address]FDZ (Bld) [#/Vol]11.4 10*3/uLHigh4.0-11.0ProSt. Anthony'S Hospitalca [place] HospitalComment on above:Performed By: #### IJEOMA, CMP #### [facility] ([id number]) [address], [address] [place], [place] [address]POORXPTSHHDSX METABOLIC PANELon 54-56-9081Uizquzc [Mass/Vol]4.4 g/dLNormal3.2-5.3ProMedThe [facility] HospitalComment on above:Performed By: #### CBCSusie, CMP #### [facility] ([id number]) [address], [address] [place], [place] [address]QYQ [Catalytic activity/Vol]87 U/YBacwye05-049WjmBrrcnl Hassan HospitalComment on above:Performed By: #### CBCA, CMP #### [facility] ([id number]) [address], [address] [place], [place] [address]PZM [Catalytic activity/Vol]17 U/LNormal0-31ProMedThe [facility] HospitalComment on above:Performed By: #### CBCA, CMP #### [facility] ([id number]) [address], [address] [place], [place] [address]Voedw gap [Moles/Vol]11 mmol/LNormal5-15[facility] HospitalComment on above:Performed By: #### CBCA, CMP #### [facility] ([id number]) [address], [address] [place], [place] [address]SYR [Catalytic activity/Vol]15 U/LNormal0-41ProMediAdena Health System HospitalComment on above:Performed By: #### CBCSusie, CMP #### [facility] ([id number]) [address], [address] [place], [place] [address]Zqbeiayzc [Mass/Vol]0.2 mg/dLLow0.3-1.2PProMedica [facility] Comment on above:Performed By: #### CBCSusie, CMP #### [facility] ([id number]) [address], [address] [place], [place] [address]Ermnkdk [Mass/Vol]9.4 mg/dLNormal8.5-10.5PMercy Health Tiffin Hospital HospitalComment on above:Performed By: #### CBCA, CMP #### [facility] ([id number]) [address], [address] [place], [place] [address]Bhkqmxui [Moles/Vol]100 mmol/OPhhzrv38-411GztUtdngk [place] HospitalComment on above:Performed By: #### CBCA, CMP #### [facility] [facility] ([id number]) [address], [address] [place], [place] [address]HJ5 [Moles/Vol]29 mmol/QJtcloj81-39FisQulleoProMedica Fostoria [facility] Comment on above:Performed By: #### CBCA, CMP #### [facility] ([id number]) [address], [address] [place], [place] [address]Olvswihnjg [Mass/Vol]0.64 mg/dLNormal0.40-1.00ProSamaritan North Health CenterComment on above:Result Comment: METHOD TRACEABLE TO IDMS STANDARD Performed By: #### IJEOMA, CMP #### [facility] ([id number]) [address], [address] [place], [place] [address]pNZV (CKD-EPI) NON-RACE DEPENDENT>90Normal>59ProRegency Hospital [facility] West HospitalComment on above:Result Comment: Reported eGFR is based on the CKD-EPI 2020 equation that does not use a race coefficient.Performed By: #### IJEOMA, CMP #### [facility] ([id number]) [address], [address] [place], [place] [address]Chlgxay [Mass/Vol]73 mg/bPSniydq71-75XvnPkjbuq [facility] Comment on above:Performed By: #### IJEOMA, CMP #### [facility] ([id number]) [address], [address] [place], [place] [address]Wuviigtek [Moles/Vol]4.3 mmol/LNormal3.5-5.0ProSamaritan North Health CenterComment on above:Performed By: #### IJEOMA, CMP #### [facility] ([id number]) [address], [address] [place], [place] [address]Biwxsjf [Mass/Vol]7.3 g/dLNormal6.0-8.0[facility] Comment on above:Performed By: #### CBCSusie, CMP #### [facility] ([id number]) [address], [address] [place], [place] [address]Wowosz [Moles/Vol]140 mmol/PVfmscf596-601EhhGmqwwt [facility] HospitalComment on above:Performed By: #### CBCA, CMP #### [facility] ([id number]) [address], [address] [place], [place] [address]Cnpk nitrogen [Mass/Vol]12 mg/dLNormal5-23Pro[facility]ica Galion HospitalComment on above:Performed By: #### CBCA, CMP #### [facility] ([id number]) [address] [facility], [address] [place], [place] [address]Gtsactiuakh [Mass/volume] in Serum or PlasmaOrdered By: Obie Harley on 57-59-4095Fuhokxredjn [Mass/Vol]198 mg/cB928-704OqyfjlviaCleveland Clinic Children'S Hospital For RehabilitationComment on above:Chol less than 200 mg/dl low riskChol 201-239 mg/dl borderline riskChol 240 mg/dl and greater high riskCholesterol in LDL Calc [Mass/Vol]Ordered By: Obie Harley on 39-73-7740Vroodemrslm in LDL [Mass/Vol] 107 mg/dLHigh0-100[facility] For RehabilitationComment on above:LDL ATP III CLASSIFICATIONLDL less than 100 mg/dL OptimalLDL 100-129 mg/dL Near or above bxodyfwROD874-910 mg/dL Borderline highLDL 160-189 mg/dL HighLDL greater than 189 mg/dL Very highCholesterol in VLDL Calc [Mass/Vol]Ordered By: Obie Harley on 20-54-3884Rbsyxrshthx in VLDL [Mass/Vol]17 mg/dLDiley Ridge Medical Centererum or plasma high density lipoprotein (HDL) cholesterol measurement Ordered By: Obie Harley on 63-12-8062Fbzljdczoxo in HDL [Mass/Vol]74 mg/dL 23-92[facility] For RehabilitationComment on above:HDL CHOL ATP-III CLASSIFICATION Cardiovascular RiskHDL > or equal to 60 mg/dL LOWHDL < 40 mg/dL HIGHSerum or plasma total cholesterol/high density lipoprotein (HDL) cholesterol mass ratOrdered By: Obie Harley on 52-26-3701Jpkcnvuzpvi.total/Cholesterol in HDL [Mass ratio]2.7 {ratio}<5.0[facility] Hospital For RehabilitationThyrotropin [Units/volume] in Serum or PlasmaOrdered By: Obie Harley on 35-93-1171IXW Qn 0.78 m[IU]/L0.45-5.33[facility] For RehabilitationTriglyceride [Mass/volume] in Serum or PlasmaOrdered By: Obie Harley on 67-63-8678Vtwsjzieimrs [Mass/Vol]85 mg/dL0-149[facility] For RehabilitationComment on above:TRIG ATP III CLASSIFICATIONTRIG less than 150 mg/dL NormalTRIG 150-199 mg/dL Borderline highTRIG 200-500 mg/dL High TRIG greater than 500 mg/dL Very highStandard traceable to the Center for Disease Conrtrol and Prevention (CDC) test method.Vitamin D+Metabolites [Mass/volume] in Serum or PlasmaOrdered By: Obie Harley on 81-43-3841Ezslarm D+Metabolites [Mass/Vol]21.8 ng/cPKmj36-381 [facility] For RehabilitationComment on above:VITAMIN D STATUS 25(OH)VITAMIN D RANGE (ng/mL) Deficient <20 Insufficient 20 to <75Rpolotwybi65 to 100Reference: Costa MF,Woo NC, Yvrose GRIDER, et al. Evaluation,treatment, and prevention of vitamin D deficiency; an Endocrine Society clinical practice guideline. JCEM. 2010; 96(7):1911-30.Sleep Deprived EEGon 11-84-3613Hfajsy from the original result were not included. [...] RESULTSSleep Deprived EEGOrdered By: Brisa Sanchez on 91-16-2760FzxVdmhun Health System Work Phone: EDPROVon [phone] Chief Complaint Patient presents with Back Pain [...] and discharge. Lilian Ellington (more content not included)...NormalUnClermont County HospitalAMYLASEon 94-67-1287Tfhufgd [Catalytic activity/Vol]56 U/DExtbcs23-389Uso [facility] CenterComment on above:Performed By: #### LIAN, CMP, LIPA #### [facility] [address] [address] [address] Hanh Camara AUTO DIFFon 75-24-2544NEWR #0.1 103/ulNormal0.0-0.1The [facility] Medical CenterComment on above:Performed By: #### CBC #### [facility] [address] [address] [address] Hanh Waresophils/100 WBC (Bld)0.5 %Normal0.2-2.0[facility] Comment on above:Performed By: #### CBC #### [facility] [address] [address] [address] Hanh Valdovinos #0.1 103/ulNormal0.0-0.7The [facility] CenterComment on above: Performed By: #### CBC #### [facility] [address] [place] [address] Dr. Hanh Davidsonosinophils/100 WBC (Bld)0.5 %Critically low0.9-7.0The [facility] CenterComment on above:Performed By: #### CBC #### [facility] [address] [place] [address] Dr. Hanh Davidsonrythrocyte distribution width (RBC) [Ratio]12.4 %Okaeut28.0-15.0 The [facility] CenterComment on above:Performed By: #### CBC #### [facility] [address] [place] [address] Dr. Hanh CervantesHematocrit (Bld) [Volume fraction]42.1 %Eiyfyu27.0-48.0The [facility] CenterComment on above:Performed By: #### CBC #### [facility] [address] [place] [address] Dr. Hanh CervantesHemoglobin (Bld) [Mass/Vol]14.3 g/yFVmnlqt36.0-16.0The [facility] on above:Performed By: #### CBC #### [facility] [address] [place] [address] Dr. Hanh Brooks #0.04 10e3/ulCritically high0.00-0.03The [facility] Comment on above:Performed By: #### CBC #### [facility] [address] [place] [address] Dr. Hanh Brooks %0.3 %Normal0.0-0.5The [facility] CenterComment on above: Performed By: #### CBC #### [facility] [address] [place] [address] Dr. Hanh GarcíaH #1.1 103/ulCritically low1.2-3.8The [facility] Comment on above:Performed By: #### CBC #### [facility] [address] [place] [address] Dr. Hanh Hollowaymphocytes/100 WBC (Bld)9.7 %Critically low20.5-60.0The [facility] CenterComgarden city hospital on above:Performed By: #### CBC #### [facility] [address] [place] [address] Dr. Hanh Calzada DIFF REQNONormalThe [facility] CenterComment on above: Performed By: #### CBC #### [facility] [address] [place] [address] Dr. Hanh Salazar (RBC) [Entitic mass]28.9 ctFiljro80.7-34.0The [facility] CenterComment on above:Performed By: #### CBC #### [facility] [address] [place] [address] Dr. Hanh Salazar (RBC) [Mass/Vol]34.0 g/zNZtlscg86.9-35.2The [facility] CenterComment on above:Performed By: #### CBC #### [facility] [address] [place] [address] Dr. Hanh Salazar (RBC) [Entitic vol]85.2 uTUvpyoa16.0-99.0The [facility] CenterComment on above:Performed By: #### CBC #### [facility] [address] [place] [address] Dr. Hanh العراقي #0.5 103/ulNormal0.3-0.8The [facility] CenterComment on above:Performed By: #### CBC #### [facility] [address] [place] [address] Dr. Hanh Reneeocytes/100 WBC (Bld)4.4 %Normal1.7-12.0[facility] Comment on above:Performed By: #### CBC #### [facility] [address] [place] [address] Dr. Hanh Henderson #9.9 103/ulCritically high1.4-6.5The [facility] Comment on above:Performed By: #### CBC #### [facility] [address] [place] [address] Dr. Hanh CervantesNeutrophils/100 WBC (Bld)84.6 %Critically high43.0-75.0The [facility] on above:Performed By: #### CBC #### [facility] [address] [place] [address] Dr. Hanh CervantesPlatelet mean volume (Bld) [Entitic vol]10.1 fLNormal9.5-13.5The [facility] CenterComgarden city hospital on above:Performed By: #### CBC #### [facility] [address] [place] [address] Dr. Hanh CervantesPLT368 103/haRlofsk525-575Hyj [facility] on above: Performed By: #### CBC #### [facility] [address] [place] [address] Dr. Hanh CervantesRBC4.94 106/ulNormal4.20-5.40The [facility] on above:Performed By: #### CBC #### [facility] [address] [place] [address] Dr. Hanh CervantesWBC11.7 103/ulCritically high4.0-11.0The [facility] on above:Performed By: #### CBC #### [facility] [address] [place] [address] Dr. Hanh CervantesLIPASEon 91-51-9881Uotrue [Catalytic activity/Vol]82.0 U/LNormal 73.0-393.0The [facility] on above:Performed By: #### LIAN, CMP, LIPA #### [facility] [address] [place] [address] Dr. Hanh CervantesPROF 14(COMP METB)on 06-17-0755Ntrqnxr [Mass/Vol]4.6 g/dLNormal 3.4-5.0The [facility] on above:Performed By: #### LIAN, CMP, LIPA #### [facility] [address] [place] [address] Dr. Hanh CervantesAlbumin/Globulin [Mass ratio]1.1 {ratio}NormalThe [facility] CenterComment on above:Performed By: #### LIAN, CMP, LIPA #### [facility] [address] [place] [address] Dr. Hanh Hurd [Catalytic activity/Vol]88 U/ONpcjjt81-581Kld [facility] CenterComment on above:Performed By: #### LIAN, CMP, LIPA #### [facility] [address] [place] [address] Dr. Hanh Garcia [Catalytic activity/Vol]45 U/FKpvins42-55Rug [facility] CenterComment on above:Performed By: #### LIAN, CMP, LIPA #### [facility] [address] [place] [address] Dr. Hanh Braron gap [Moles/Vol]14.7 mmol/LNormalThe [facility] Comment on above:Performed By: #### LIAN, CMP, LIPA #### [facility] [address] [place] [address] Dr. Hanh Oakley [Catalytic activity/Vol]24 U/AOplfjo17-07Dku [facility] CenterComment on above:Performed By: #### LIAN, CMP, LIPA #### [facility] [address] [place] [address] Dr. Hanh CervantesBilirubin [Mass/Vol]0.6 mg/dLNormal0.2-1.0The [facility] Comment on above:Performed By: #### LIAN, CMP, LIPA #### [facility] [address] [place] [address] Dr. Hanh CervantesCalcium [Mass/Vol]9.4 mg/dLNormal8.5-10.1The [facility] Comment on above:Performed By: #### LIAN, CMP, LIPA #### [facility] [address] [place] [address] Dr. Hanh CervantesChloride [Moles/Vol]100 mmol/JSldwys66-179Avp [facility] Comment on above:Performed By: #### LIAN, CMP, LIPA #### [facility] [address] [address] [address] Hanh CervantesCO2 [Moles/Vol]25.9 mmol/LSalzmo40.0-32.0The [facility] Comment on above:Performed By: #### LIAN, CMP, LIPA #### [facility] [address] [address] [address] Hanh CervantesCreatinine [Mass/Vol]0.78 mg/dLNormal0.55-1.02The [facility] CenterComment on above:Performed By: #### LIAN, CMP, LIPA #### [facility] [address] [address] [address] Hanh DavidsonGFR-AF CONGOLESE>60Normal>=60The [facility] CenterComment on above:Performed By: #### LIAN, CMP, LIPA #### [facility] [address] [place] [address] Dr. Hanh DavidsonGFR-NON AF CONGOLESE>60Normal>=60The [facility] CenterComment on above:Performed By: #### LIAN, CMP, LIPA #### [facility] [address] [address] [address] Hanh CervantesGlobulin (S) [Mass/Vol]4.3 g/dLNormalThe [facility] CenterComment on above:Performed By: #### LIAN, CMP, LIPA #### [facility] [address] [place] [address] Dr. Hanh CervantesGlucose [Mass/Vol]117 mg/dLCritically thsl23-597Vjm [facility] CenterComment on above:Performed By: #### LIAN, CMP, LIPA #### [facility] [address] [place] [address] Dr. Hanh CervantesPotassium [Moles/Vol]3.6 mmol/LNormal3.5-5.1The [facility] Comment on above:Performed By: #### LIAN, CMP, LIPA #### [facility] [address] [place] [address] Dr. Hanh CervantesProtein [Mass/Vol]8.9 g/dLCritically high6.4-8.2The [facility] CenterComment on above:Performed By: #### LIAN, CMP, LIPA #### [facility] [address] [address] [address] Hanh CervantesSodium [Moles/Vol]137 mmol/QLipkuq805-259Ydb [facility] Comment on above:Performed By: #### LIAN, CMP, LIPA #### [facility] [address] [address] [address] Hanh Hernandez nitrogen [Mass/Vol]9.0 mg/dLNormal7.0-18.0The [facility] CenterComment on above:Performed By: #### LIAN, CMP, LIPA #### [facility] [address] [address] [address] Hanh Hernandez nitrogen/Creatinine [Mass ratio]11.5 mg/mgNormalThe [facility] CenterComment on above:Performed By: #### LIAN, CMP, LIPA #### [facility] [address] [address] [address] Hanh Cervantes Vital Signs Date TimeVital SignValuePerforming IswegvrdiFtjqptgz30-70-1282 11:40-0400 Diastolic blood yadxqhmo020 mm[Hg]Muhamid Hugo ND Work Phone: [facility]09-16-2025 11:40-0400Systolic blood mm[Hg]Muhamid Hugo ND Work Phone: Bon [facility]09-16-2025 11:34-0400Body uwfdyj423 cmMuhamid Hugo ND Work Phone: [facility]09-16-2025 11:34-0400Body mass index (BMI) [Ratio]35.43 kg/i2Qeqzrbl Hugo ND Work Phone: [facility]09-16-2025 11:34-0400Body yuuhkxdqyfl16.2 [degF]Muhamid Hugo ND Work Phone: [facility]09-16-2025 11:34-0400Body ttocxp71.72 kgMuhamid Hugo ND Work Phone: [facility] HospitalAIRTAME [facility] HospitalFkkehg58-19-3683 11:34-0400Heart rate82 /minMuhamid Hugo ND Work Phone: [facility]09-16-2025 11:34-0400 Respiratory rate20 /minMuhamid Hugo ND Work Phone: [facility]09-16-2025 11:34-6207IhG6% (BldA) [Mass fraction]98 %Muhamid Hugo ND Work Phone: [facility]08-09-2025 17:45-0400Diastolic blood eqcwrdea35 mm[Hg]Muhamid Hugo ND Work Phone: [facility]08-09-2025 17:45-0400Heart rate70 /minMuhamid Hugo ND Work Phone: [facility]08-09-2025 17:45-0400 Respiratory rate16 /minMuhamid Hugo ND Work Phone: [facility]08-09-2025 17:45-6365SeU7% (BldA) [Mass fraction]96 %Muhamid Hugo ND Work Phone: [facility]08-09-2025 17:45-0400Systolic blood ldwneuij195 mm[Hg]Muhamid Hugo ND Work Phone: [facility]08-09-2025 14:53-0400Body alaxngcrxub457.4 [degF]Muhamid Hugo ND Work Phone: [facility]08-01-2025 10:47-0400Body Emmylexjacques Lynch APRN-RN RADIOLOGY Work Phone: [facility] Fnqmqd85-38-6519 10:47-0400Body mass index (BMI) [Ratio]34.52 kg/w5EfaykzsbzSharon Lynch PREHEMMER-RN RADIOLOGY Work Phone: [facility] Xvjrll57-31-1607 10:47-0400Body kalabjgjnob21.59 [degF]Sharon Lynch PREHEMMER-RN RADIOLOGY Work Phone: [facility] Ssnpoc10-09-7657 10:47-0400Body bupxpq13.36 kgAlecindy Lynch PREHEMMER-RN RADIOLOGY Work Phone: [facility] Pzpgzh85-62-2904 10:47-0400Diastolic blood ysbioiih56 mm[Hg]Sharon Lynch PREHEMMER-RN RADIOLOGY Work Phone: [facility] Yfwmlt59-44-1875 10:47-0400Heart rate 76 /minAlecindy Lynch PREHEMMER-RN RADIOLOGY Work Phone: [facility] Qvblsr62-72-2844 10:47-8178FvM4% (BldA) [Mass fraction]98 %Sharon Lynch PREHEMMER-RN RADIOLOGY Work Phone: [facility] Euhyga44-21-6860 10:47-0400Systolic blood lhrewbmr810 mm[Hg]Sharon Lynch PREHEMMER-RN RADIOLOGY Work Phone: [facility] Ocwhhy46-43-0940 13:39-0400Body obngvn948 cmAeloise Hines PA-C Work Phone: [facility] Ollxsf72-65-7888 13:39-0400Body mass index (BMI) [Ratio]34.54 kg/q2TdngygkBryant Hines PA-C Work Phone: [facility] Mfgqpe53-74-4590 13:39-0400Body .45 kgBryant Hines PA-C Work Phone: [facility] Bwisyc45-51-6940 13:39-0400Diastolic blood dvqzfzey29 mm[Hg]Bryant Hines PA-C Work Phone: [facility] Qroulx01-94-4168 13:39-0400Heart rate 72 /minBryant Hines PA-C Work Phone: [facility] Asuqca27-76-9234 13:39-0400Systolic blood nwrnhiuu737 mm[Hg]Bryant Hines PA-C Work Phone: [facility]07-23-2025 16:00-0400Diastolic blood lksdqurr33 mm[Hg]Nancy Barnard MD Work Phone: [employer]07-23-2025 16:00-0400Heart rate87 /Alden Barnard MD Work Phone: [employer]07-23-2025 16:00-0400 Respiratory rate17 /Alden Barnard MD Work Phone: [employer]07-23-2025 16:00-0400Systolic blood hkwtudeu766 mm[Hg]Nancy Barnard MD Work Phone: [facility]07-23-2025 09:01-0400Body aonyocmhlku90.59 [degF]Nancy Barnard MD Work Phone: [employer]07-23-2025 08:46-6348LqB3% (BldA) [Mass fraction]97 %Nancy Barnard MD Work Phone: [facility]07-22-2025 16:37-0400Body lyklen361 cmThaiyayo Barnard MD Work Phone: [employer]07-22-2025 16:37-0400Body mass index (BMI) [Ratio]32.57 kg/j7Rvgtodaphney Barnard MD Work Phone: [facility]07-22-2025 16:37-0400Body yfpxuj52.4 kgThdaphney Barnard MD Work Phone: [employer]06-11-2025 10:27-0400Body mucoot337 Alex Hines PA-C Work Phone: [facility] Pnxjqj86-16-7835 10:27-0400Body mass index (BMI) [Ratio]34.54 kg/k9ShusephBryatn Hines PA-C Work Phone: [facility] Amouwe05-99-7788 10:27-0400Body zpuvio90.45 kgBryant Hines PA-C Work Phone: [facility] Byjlsi30-23-7856 10:27-0400Diastolic blood mwmcaqgy72 mm[Hg]Bryant Hines PA-C Work Phone: [facility] Kcvmey95-26-9853 10:27-0400Heart rate 77 /minBryant Hines PA-C Work Phone: [phone] Mqtrpe90-63-3934 10:27-0400Systolic blood sztgiwro160 mm[Hg]Bryant Hines PA-C Work Phone: [facility] Lvungv32-59-6330 10:35-0400Body .6 cmAntmarymaria esther Hines PA-C Work Phone: [facility] Gagrun05-49-9831 10:35-0400Body mass index (BMI) [Ratio]34.31 kg/d2RfneknsBryant Hines PA-C Work Phone: [facility] Zopclg64-21-7682 10:35-0400Body kvaxjd31.72 kgBryant Hines PA-C Work Phone: [facility] Mizamw30-69-7843 10:35-0400Diastolic blood kisppqrl61 mm[Hg]Bryant Hines PA-C Work Phone: [facility] Ddngfn89-03-8044 10:35-0400Heart rate 71 /minBryant Hines PA-C Work Phone: [phone] Zzjhfx09-75-2253 10:35-0400Systolic blood zttcehok453 mm[Hg]Bryant Hines PA-C Work Phone: [facility] Wpzxiz48-68-4320 11:02-0500Body ulyonj579.6 cmJanay Mustafa APRN-RN RADIOLOGY Work Phone: [facility]02-18-2025 11:02-0500Body mass index (BMI) [Ratio]34.35 kg/u3CumgsaJanay Mustafa APRN-RN RADIOLOGY Work Phone: [facility]02-18-2025 11:02-0500Body tvavozxnfis46.6 [degF]Janay Mustafa APRN-RN RADIOLOGY Work Phone: [facility]02-18-2025 11:02-0500Body zricsw20.81 kgJanay Mustafa PREHEMMER-RN RADIOLOGY Work Phone: [facility]02-18-2025 11:02-0500Diastolic blood jldvxnqo74 mm[Hg]Janay Mustafa APRN-RN RADIOLOGY Work Phone: [facility]02-18-2025 11:02-0500Heart rate 66 /minJanay Mustafa APRN-RN RADIOLOGY Work Phone: [facility]02-18-2025 11:02-4615OjW1% (BldA) [Mass fraction]99 %Janay Mustafa APRN-RN RADIOLOGY Work Phone: [facility]02-18-2025 11:02-0500Systolic blood dyxrjmtz794 mm[Hg]Janay Mustafa APRN-RN RADIOLOGY Work Phone: [facility]02-08-2025 11:46-0500Body rcytrdrffgd14.2 [degF]Oliverio Dennis MD Work Phone: [facility]02-08-2025 11:46-0500Diastolic blood mm[Hg]Oliverio Dennis MD Work Phone: [facility]02-08-2025 11:46-0500Heart rate 57 /minSnathan Dennis MD Work Phone: [facility]02-08-2025 11:46-0500 Respiratory rate16 /minSnathan Dennis MD Work Phone: [phone] [place], [place] 0874202-08-2025 11:46-0500Systolic blood hslmfqde974 mm[Hg]Oliverio Dennis MD Work Phone: [phone] [place], [place] 0874202-08-2025 09:06-9390XpM6% (BldA) [Mass fraction]99 %Oliverio Dennis MD Work Phone: 1(425)290-[address] [place], [place] 0874202-06-2025 05:00-0500Body mass index (BMI) [Ratio]34.95 kg/y5RtbfrjgOliverio Dennis MD Work Phone: 1(140)[phone] [place], [place] 0874202-06-2025 05:00-0500Body wromrl15.4 kgOliverio Dennis MD Work Phone: 1(144)391-[address] [place], [place] 0874202-03-2025 04:00-0500Body otsczq164.6 cmSnathan Dennis MD Work Phone: 1(620)024-[address] [place], [place] 0874202-01-2025 09:29-0500Body zuwmigboyzy29.6 [degF]Oliverio Dennis MD Work Phone: 1(092)611-[address] [place], [place] 0874202-01-2025 09:29-4301IzG7% (BldA) [Mass fraction]65 %Oliverio Dennis MD Work Phone: 1(864)809-[address] [place], [place] 0874202-01-2025 09:29-3962KyB0% (BldA) [Mass fraction]96 %Oliverio Dennis MD Work Phone: 1([phone])018-[address] [place], [place] 0874202-01-2025 09:26-4057KeA6% (BldA) [Mass fraction]96 %[facility] HospitalComment on above: Performed By: #### ABG ####[facility] ([id number])[address] [place], [place] [id number] 15:50-0400Body .6 Barbara Bragg MD Work Phone: [facility]10-08-2024 15:50-0400Body mass index (BMI) [Ratio]30.9 kg/m2Megha Bragg MD Work Phone: [facility]10-08-2024 15:50-0400Body .65 kgMegha Bragg MD Work Phone: [facility]10-08-2024 15:50-0400Diastolic blood ucxinupt35 mm[Hg]Megha Bragg MD Work Phone: [facility]10-08-2024 15:50-0400Systolic blood yruhegpn570 mm[Hg]Megha Bragg MD Work Phone: [facility]07-19-2024 07:30-0400Body hxxudfgvtgf41.9 [degF]MD Ottoniel Arias Work Phone: [phone])[address]07-19-2024 07:30-0400 Diastolic blood mhmyhcql02 mm[Hg]MD Ottoniel Arias Work Phone: 1(307)[address]07-19-2024 07:30-0400 Heart rate85 /minMD Ottoniel Hugo Work Phone: [phone])[address]07-19-2024 07:30-0400 Respiratory rate18 /minMD Solano Hugo Work Phone: 1(188)[address]42 [address]07-19-2024 07:30-0400 SaO2% (BldA) [Mass fraction]99 %MD Ottoniel Arias Work Phone: [phone])[address]07-19-2024 07:30-0400 Systolic blood lnkhuvbn073 mm[Hg]MD Ottoniel Arias Work Phone: [phone])[address]07-16-2024 14:12-0400 Body gaxnkm057.02 cmMD Solano Hugo Work Phone: [phone])[address]07-15-2024 08:11-0400 Body lugyvf03.84 kgMD Muhamid Hugo Work Phone: [facility]04-26-2024 13:23-0400 Body jbgpyu650.6 Barbara Bragg MD Work Phone: [facility]04-26-2024 13:23-0400Body mass index (BMI) [Ratio]28.32 kg/m2eMgha Bragg MD Work Phone: [facility]04-26-2024 13:23-0400Body ufobxs23.84 kgMegha Bragg MD Work Phone: [facility]04-26-2024 13:23-0400Diastolic blood omynshvj51 mm[Hg]Megha Bragg MD Work Phone: [facility]04-26-2024 13:23-0400Heart rate 106 /Yoly Bragg MD Work Phone: [facility]04-26-2024 13:23-0400Systolic blood cxtoqrmh378 mm[Hg]Megha Bragg MD Work Phone: [facility]10-18-2023 16:40-0400Body yimiep661.02 Henrietta Woodard Other [employer] Other 10-18-2023 16:40-0400Body mass index (BMI) [Ratio] 27.99 kg/x5AsydnkBarb Woodard Other [employer] Other 10-18-2023 16:40-0400Body kxqpzadiunl37.7 [degF]Barb Woodard Other [employer] Other 10-18-2023 16:40-0400Body dzftbe65.67 kgBarb Woodard Other [employer] Other 10-18-2023 16:40-0400Diastolic blood dwchtkmy82 mm[Hg] Barb Woodard Other [place] [employer] Other 10-18-2023 16:40-0400Respiratory rate18 /minBarb Woodard Other [facility] [employer] Other 10-18-2023 16:40-8677UaM7% (BldA) [Mass fraction]99 % Barb Woodard Other [employer] Other 10-18-2023 16:40-0400Systolic blood udumhhya487 mm[Hg] Barb Woodard Other [facility] [employer] Other Encounters Encounter DateEncounter TypeCare ProviderFacilityStart: 12-10-6826sacyvucnrmnguyễn MontalvoFacility:[facility] Centertart: 07-27-2025 End: 49-14-8957fonljnhieqYJKODKV [facility] HospitalStart: 07-27-2025 End: 59-29-7329Ytsgzqvttq hospital visit by physicianE[facility] Laboratory Schedule [facility] LABComment on above:Missed abortionStart: 07-18-2025 End: 01-33-4195fmdlkxsimxEEOWTZP M [facility] Ambulatory PPGStart: 07-11-2025 End: 61-65-2986nknhwpibtsDNOFPGON E POOLMercy Bethany HospitalStart: 07-10-2025 End: 44-88-4009mocnuhkrodLIZXSEM [facility] HospitalStart: 07-04-2025 End: 23-04-9842urqumimjsmIREHWCR M [facility] HospitalStart: 06-26-2025 End: 36-75-3712ggxzzsxsjvXozecib Asif MD Work Phone: [facility] Work Phone: Start: 06-26-2025 End: 40-50-1944Ovaghmzk Octaviano Schulz PA-C-LAB [facility] Start: 06-22-2025 End: 36-45-7630Cfwqldxbj department patient visitFacility:[facility] HospitalStart: 06-20-2025 End: 80-74-2974Ismbeocew department patient visitMUCass County Health System Emergency DepartmentComment on above:Cannabis 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); Positive testStart: 06-19-2025 End: 12-01-5273Goijvgong department patient visitMUCass County Health System HospitalStart: 13-37-4754Lqcxnbhloh RecurringDonavon Montalvo MDTHREE RIVERS [facility] CredibleStart: 05-26-2025 End: 33-98-9547Jnjaie-up encounterMerfariba BRUNOAvenir Behavioral Health Center at SurpriseoMednoland hospital dothan Physicians Family MedicineComment on above:Basic Metabolic PanelStart: 61-52-8174acyevklnteSt Luke Medical Center HospitalStart: 05-13-2025 End: 29-57-5180Ayxvohcdd department patient visitMUEASTERN NIAGARA HOSPITALID [facility] Emergency DepartmentComment on above:Cannabis 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)Start: 05-05-2025 End: 44-81-4803isvlwpeawnRVZRTUXHVSt. [facility] Ambulatory PPGStart: 05-05-2025 End: 66-75-9178Zbtlybjjgksx care manage srvc 14 day dischargeBon Secours Depaul Medical Centerjas PREHEMMER-RN RADIOLOGY Work Phone: [facility] Family MedicineComment on above: Nausea and vomiting, unspecified vomiting type (Primary Dx); Hypokalemia; RAKESH (acute kidney injury); Seizure disorder (CMS-HCC); Hospital discharge follow-upStart: 04-28-2025 End: 71-10-3077Rimyiw outpatient visit 15 minutesBryant Hines PA-C Work Phone: [facility] [place]ontComment on above:Seizure disorder (CMS-HCC) (Primary Dx); Breakthrough seizure (CMS-HCC); Cannabinoid hyperemesis syndromeStart: 04-28-2025 End: 41-89-1290katuiergweEKOEBGZThedaCare Medical Center [facility] PPGStart: 04-25-2025 End: 78-44-5352xkrbjjdptfWLBHRMKettering Health Troytart: 04-25-2025 End: 26-44-4243Gklbwzeyed and management of inpatientThais Carmelo Barnard MD Work Phone: mthz ICUComment on above:Nausea and vomiting, unspecified vomiting type (Primary Dx); Cannabinoid hyperemesis syndrome; Hypokalemia; DehydrationStart: 43-07-9792jihlvuolfsDZGLIKC C HAMILTONOur Lady of Mercy Hospitaltart: 03-15-2025 End: 78-18-6935Rxbjxj outpatient visit 25 minutesBryant Hines PA-C Work Phone: [facility] Neurology FremontComment on above:Seizure disorder ([facility]-HCC) (Primary Dx); Breakthrough seizure ([facility]-HCC)Start: 03-15-2025 End: 08-58-6132gcbpbvzdmyUUOJOCOThedaCare Medical Center - [facility] PPGStart: 03-01-2025 End: 98-78-2713Mcguvwisl department patient visitRegional Medical Centertart: 02-23-2025 End: 20-61-6914Njllhvnjv department patient visitRegional Medical Centertart: 12-21-2024 End: 10-92-7429Znayeb outpatient visit 15 minutesMegha Bragg MD Work Phone: [facility] Neurology FremontComment on above:Seizure disorder ([facility]-HCC) (Primary Dx)Start: 12-21-2024 End: 11-95-5593trgoagjhhrSPSUIXBThedaCare Medical Center - [facility] PPGStart: 12-06-2024 End: 49-85-8389Ripeejxkq encounterLaura KeyerProMedica Physicians Neurology Comment on above:12/20/24 MAHSA RESCHEDULEStart: 11-23-2024 End: 21-88-0356svtcjpaknbIYHWBN A [facility] Hospitaltart: 11-22-2024 End: 18-76-6310Umbdetbkv encounterSatnam BATRES [facility] CenteroStart: 11-22-2024 End: 89-55-0147Ltjguhigxnqi care manage srvc 14 day dischargeJanay Mustafa PREHEMMER-RN RADIOLOGY Work Phone: [facility] Physicians Family MedicineComment on above: Seizure disorder (CMS-HCC) (Primary Dx); Focal epilepsy (CMS-HCC); Acute kidney injury (CMS-HCC); Eczema of right handStart: 11-22-2024 End: 79-24-9156cuetdwmgqkDSEVKP A [facility] Ambulatory PPG Start: 11-15-2024 End: 23-50-1778Zqfpwg OnlyJanay Mustafa PREHEMMER-RN RADIOLOGY Work Phone: [facility] Physicians Family MedicineComment on above: Seizure disorder (CMS-HCC) (Primary Dx)Transition Of CareStart: 11-08-2024 End: 73-67-2880dqjgbuixvjDJYGLQ VOHRAProMedThe MetroHealth System HospitalStart: 11-05-2024 End: 41-54-3077Alryxzgqay and management of inpatientSguerlineleroy Jazz Singh DO Work Phone: [facility] AcuteStart: 11-04-2024 End: 62-41-1007Mizzcgdmy department patient visitMUHAMHOLLEY Schulz ASIFPSedgwick County Memorial Hospital HospitalStart: 11-02-2024 End: 71-69-7776Zhaqbidsr encounterMaxjulian LlamasOhioHealth [facility] Hospital Physicians Neurology Comment on above:levETIRAcetam (KEPPRA) 750 mg tabletStart: 09-14-2024 End: 70-01-5083Wawdxjwyom and management of inpatientNAMEER ALADAMATProMedThe MetroHealth System HospitalStart: 09-14-2024 End: 46-85-9181Bueawjdtgc and management of inpatientNAMEER ALADAMATProMedThe MetroHealth System HospitalStart: 09-13-2024 End: 42-95-5670Ipwckppcvj and management of inpatientNAMEER ALADAMATProMedica Hassan HospitalStart: 09-12-2024 End: 63-54-0472euokwietllFZQKKettering Health Dayton HospitalStart: 09-12-2024 End: 16-37-7682Yqqmeirhoz and management of inpatientIMRAN I ALIProSt. Anthony'S Hospitalca [place] HospitalStart: 07-12-2024 End: 70-76-0625Mgfxiq outpatient visit 25 minutesMegha Bragg MD Work Phone: [facility] Physicians NeurologyComment on above: Breakthrough seizure ([facility]-HCC) (Primary Dx); Gastroesophageal reflux disease, unspecified whether esophagitis present; Seizure disorder (CMS-HCC); Eczema, unspecified type; Anxiety; Depression, unspecified depression typeStart: 07-12-2024 End: 61-62-9182fstxexlbbaCVCHProvidence St. Peter Hospital HospitalStart: 07-01-2024 End: 11-77-4563Rbrtjlwzbtrgs procedureKalin AvilaAvita Health System Ontario Hospital - Acute CareStart: 96-98-0745Evf-patient / Non-visitMD Muhamid Hugo Work Phone: [facility] GroupChildren'S [facility] OutPt Work Phone: Start: 04-17-2024 End: 93-26-6772Zgaqxwxynx and management of inpatientMD Muhamid Hugo Work Phone: [facility] Work Phone: Start: 03-20-2024 End: 90-23-0004OomoktMboheqv M Asif MD Work Phone: [facility] Physicians Family MedicineComment on above: AnxietyStart: 02-08-2024 End: 91-07-3414OdqhpmQybmypy M Asif MD Work Phone: [facility] Hospitalca Physicians Family MedicineComment on above: AnxietyStart: 02-02-2024 End: 47-49-9706hywcfctoxjOKPCP FAZIONot AvailableStart: 01-29-2024 End: 94-15-5752Pxerzl outpatient new 45 minutesRachel D Karchner PREHEMMER-RN RADIOLOGY Work Phone: [facility] Physicians NeurologyComment on above:Seizure disorder (CMS-HCC) (Primary Dx); Witnessed seizure-like activity (CMS-HCC); Anxiety; Gastroesophageal reflux disease, unspecified whether esophagitis present; Depression, unspecified depression type; Eczema, unspecified typeStart: 23-84-9729Hhoyvp OnlyOttoniel Arias MD Work Phone: [facility] Physicians Family MedicineComment on above: Seizure (CMS-HCC) (Primary Dx); Muscle crampStart: 61-50-4905Rdjmjdnjk department patient visitKettering Health Hamiltontart: 01-06-2024 End: 84-52-1087Mhhtqvplh department patient visitOhio State Harding Hospitaltart: 67-85-2644Fwigfpffw encounterCarlee EastMontefiore Health System Physicians NeurologyComment on above:New Patient Appt.Start: 11-24-2023 End: 39-24-7477Livstz outpatient visit 25 minutesOttoniel Arias MD Work Phone: [facility] Physicians Family MedicineComment on above: Anxiety (Primary Dx); Depression, unspecified depression typeStart: 10-26-2023 End: 18-69-9133dfbdspifplRGTMR FAZIONot AvailableStart: 10-08-2023 End: 18-72-9759Veubfo outpatient visit 15 minutesOttoniel Arias MD Work Phone: [facility] Physicians Family MedicineComment on above: Generalized anxiety disorderStart: 08-31-2023 End: 00-17-7182jsskijkgmcJFKXI FAZIONot AvailableStart: 07-22-2023 End: 76-59-5019mxqngmskjeBfzwvv Dymond Other [place] [employer] Other Start: 27-30-0693Crmzly outpatient visit 15 minutes Barb BondG Urgent Care ClydeStart: 09-25-2022 End: 59-73-9701zsjjschkkeJM NONE LISTED REQUESTFacility:H1 Procedures DateProcedureProcedure DetailPerforming ClinicianStart: 41-63-6415Hrfwhlauvkuo chorionic quantitativeKathleen E Pool PREHEMMER - CNM Work Phone: Start: 18-56-4763Ys preg uterus real time w/image dcmtn transvagMarcia Susie Gab PREHEMMER - RN RADIOLOGY Work Phone: Start: 03-54-0393Qnyn tst prsmv instrmnt chem analyzers pr dateCarminacia Susie Gab PREHEMMER - RN RADIOLOGY Work Phone: Start: 16-22-4926Fexiw dip stick/tablet reagent auto microscopyThdaphney Barnard MD Work Phone: Start: 06-20-2025 End: 29-46-7710Bunvfehimayvl metabolic panelThdaphney Barnard MD Work Phone: Start: 84-30-5410Erme tst prsmv instrmnt chem analyzers pr dateTozeke Araiza [place] PA-C Work Phone: Start: 40-00-6862Lzttc dip stick/tablet reagent auto microscopyTozeke Araiza [facility]- Work Phone: Start: 92-70-3142Oxjqt metabolic panel calcium total You Jose G [facility]- Work Phone: Start: 04-71-7464Xfrwb depression screening assessment Sharon Lynch PREHEMMER-RN RADIOLOGY Work Phone: Start: 51-76-2042Khinlh ecg 1-3 leads w/interpretation & reportUnknown Provider ResultStart: 04-26-2025 End: 92-45-3265Rytlz of magnesiumMarcia Susie Gab PREHEMMER - RN RADIOLOGY Work Phone: Start: 69-46-5532IBHLJ METABOLIC PANEL W/ REFLEX TO MG FOR LOW KMarcia Susie Gab PREHEMMER - RN RADIOLOGY Work Phone: Start: 76-11-9219Yxkzhjaapn microscopic onlyJames P Terrell PA-C Work Phone: Start: 34-52-8385Wfznb dip stick/tablet rgnt auto w/o microscopyJames P Terrell PA-C Work Phone: Start: 59-58-0553Nb abdomen & pelvis w/contrast materialJames P Terrell PA-C Work Phone: Start: 84-51-4983Jbdaxdmuazszx metabolic panelJames P Terrell PA-C Work Phone: Start: 04-25-2025 End: 09-92-4825Rok routine ecg w/least 12 lds i&r onlyJames P Terrell PA-C Work Phone: Start: 10-96-9283Rzhdvb-up visitFollow-upJUDITH A [facility]ITALtart: 08-08-9400Tgnor depression screening assessmentNicole Cheng RN Start: 87-76-3117Jmsguhafnokxt metabolic panelSnathan Dennis MD Work Phone: Start: 76-37-5000Gtrslbdbwx exam chest single view Oliverio Dennis MD Work Phone: Start: 78-68-0408LR INFECTIOUS DISEASE RESP, DNA/RNA, 22 TARGETS INCLUDING KMWNVIC4Uwdmltisoheila Dennis MD Work Phone: Start: 46-54-3917Pownyvesmlhsl metabolic Brigitte Dennis MD Work Phone: Start: 30-56-5342Yyh routine ecg w/least 12 lds trcg only w/o i&rDalal Mahmoud PA-C Work Phone: Start: 26-11-8738Nojinjmaydemx metabolic panelSnathan Dennis MD Work Phone: Start: 23-50-4850Copuytath serum plasma/whole blood Marjorie Curiel MD Work Phone: Start: 62-40-1913Xkokjclgyyano metabolic panelSnathan Dennis MD Work Phone: Start: 71-93-8104Xhhkwiyxe serum plasma/whole blood Marjorie Curiel MD Work Phone: Start: 11-08-2024 End: 50-48-9350Seep bld gluc mntr dev cleared fda spec home useSparviz Singh DO Work Phone: Start: 57-10-4738Rhhdeganhrhfgf vitamin b-12Marjorie Curiel MD Work Phone: Start: 83-91-1123Bcsatki ionizedChristopher Ewry PREHEMMER-RN RADIOLOGY Work Phone: Start: 76-90-9149Wvhik metabolic panel calcium total Marjorie Curiel MD Work Phone: Start: 10-10-2514Zbiauqpsz serum plasma/whole blood Marjorie Curiel MD Work Phone: Start: 93-74-1299Rpgs bld gluc mntr dev cleared fda spec home useSparviz Singh DO Work Phone: Start: 11-07-2024 End: 47-52-1650Plgumytja serum plasma/whole bloodMarjorie Curiel MD Work Phone: Start: 47-85-3861Ocvmzmln kinase totalNestor Ramsey MD Work Phone: Start: 11-07-2024 End: 50-08-6527Qfnjaarl kinase totalMarjorie Curiel MD Work Phone: Start: 23-15-8329XC ANTINEUTROPHIL CYTOPLASMIC ANTB SCREEN EA ANTBChristopher Ewry PREHEMMER-RN RADIOLOGY Work Phone: Start: 38-82-7337PD IMMUNOGLOBULIN LIGHT CHAINS FREE EACHChristopher Ewry PREHEMMER-RN RADIOLOGY Work Phone: Start: 22-87-8418Hwcmktsomvxyw metabolic panelEvan Prielipp PREHEMMER-RN RADIOLOGY Work Phone: Start: 94-76-5173NEIAXEMTZRJ IN PROCESS EEG TESTING Sol Ramos MD Work Phone: Start: 74-46-2084FXN VIDEO MONITORINGNathalie Mooney MD Work Phone: Start: 11-06-2024 End: 42-44-9807Mpjrh-dna/rna gi pthgn multiplex probe tq 12-25Christopher Ewry PREHEMMER-RN RADIOLOGY Work Phone: Start: 85-68-6752Wkb agent det nucleic acid clostridium amp probeClmaureen Merrill MD Work Phone: Start: 11-06-2024 End: 14-03-1081Ogcwkkpnhmmve metabolic panelEvan Prielipp PREHEMMER-RN RADIOLOGY Work Phone: Start: 87-43-1859Pihqi dip stick/tablet rgnt auto w/o microscopyMarie Schulz Francisco [employer] Work Phone: Start: 80-02-8085Ynqfearuoni antibodies Martínez Schulz Francisco DO Work Phone: Start: 59-48-1124Bpui ia hiv-1 ag w/hiv-1 & hiv-2 antbdy Pia Schulz [employer] Work Phone: Start: 23-72-7194QRP VIDEO MONITORING IN PROGRESSNathalie Mooney MD Work Phone: Start: 11-05-2024 End: 86-47-2807Wlchdkb ionizedEvan Prielipp PREHEMMER-RN RADIOLOGY Work Phone: Start: 98-59-2649Utma bld gluc mntr dev cleared fda spec home Vianca Singh DO Work Phone: Start: 80-58-5298Gjsfl metabolic panel calcium total Richard Prielipp PREHEMMER-RN RADIOLOGY Work Phone: Start: 41-93-1247Qrhd screen quantitative vancomycin Richard Prielipp PREHEMMER-RN RADIOLOGY Work Phone: Start: 83-33-2310Fyia bld gluc mntr dev cleared fda spec home Vianca Singh DO Work Phone: Start: 97-97-8117Fpizxiiu kinase totalEvan Prielipp PREHEMMER-RN RADIOLOGY Work Phone: Start: 04-37-0436Hqjmu gases any combination ph pco2 po2 co2 bhw1Iolqdhgrayson Singh DO Work Phone: Start: 87-31-4983IKV VIDEO MONITORING IN PROGRESSNathalie Mooney MD Work Phone: Start: 48-52-5321ZNVMokpv Patel MD Work Phone: Start: 29-13-9296Nhrpjxuedcq timeNathalie Mooney MD Work Phone: Start: 86-51-2429Fqzc screen quantitative vancomycin Richard Prielipp PREHEMMER-[facility] Work Phone: Start: 11-05-2024 End: 64-95-9349Psfzjaacb not otherwise specifiedEvan Prielipp PREHEMMER-[facility] Work Phone: Start: 45-40-8014Wvcta depression screening assessment Janay Mustafa PREHEMMER-[facility] Work Phone: Start: 11-05-2024 End: 85-59-0097Lhfmbejxveuzq metabolic panelEvan Prielipp PREHEMMER-[facility] Work Phone: Start: 18-32-0087TG INFECTIOUS DISEASE RESP, DNA/RNA, 22 TARGETS INCLUDING EXUCEFP8Apdw Prielipp PREHEMMER-[facility] Work Phone: Start: 25-41-3568Hohbs depression screening assessment Cherry LlamasStart: 10-68-1357Ramaib-up visitFollow-upEHAD AFREENStart: 67-51-6292Kiyiy depression screening assessmentOttoniel Arias MD Work Phone: Start: 50-58-4143Scwue depression screening assessment Ottoniel Arias MD Work Phone: Plan of Treatment DateCare ActivityDetailAuthorStart: 25-46-6171Rfkhxnfrbbx Syncytial Virus (RSV) or age 60 yrs+ (1 - 1-dose 75+ series)Respiratory Syncytial Virus (RSV) or age 60 yrs+ (1 - 1-dose 75+ series)[facility]: 48-99-3991ZOtI,Tdap and Td Vaccines (8 - Td or Tdap)DTaP,Tdap and Td Vaccines (8 - Td or Tdap)[facility]: 39-15-0270JScS/Tdap/Td vaccine (8 - Td or Tdap)DTaP/Tdap/Td vaccine (8 - Td or Tdap)[facility]: 48-98-0874Oyugojw ScreeningTobacco ScreeningSelect [facility]ty [facility] SystemStart: 19-30-3366Ztpum BMI ScreeningAdult BMI ScreeningSelect Medical Specialty [facility] SystemStart: 82-10-5305Uggwkucvxw ScreeningDepression ScreeningSumma Health Wadsworth - Ritt[facility] Medical Centerca [facility] SystemStart: 39-52-0243Hvxpbss ScreeningTobacco ScreeningSumma Health Wadsworth - Rittman Medical Centerca Health SystemStart: 48-83-6701Rsddk BMI ScreeningAdult BMI ScreeningSumma Health Wadsworth - Rittman Medical Centerca Health SystemStart: 54-71-3619Ojlmpkp ScreeningTobacco ScreeningProSt. Anthony'S Hospitalca Health SystemStart: 62-40-9091Dhyee BMI ScreeningAdult BMI ScreeningSumma Health Wadsworth - Rittman Medical Centerca Health SystemStart: 58-55-6871Hcgywbe ScreeningTobacco ScreeningSumma Health Wadsworth - Rittman Medical Centerca Health SystemStart: 87-09-3922Vnxvl BMI ScreeningAdult BMI ScreeningSumma Health Wadsworth - Rittman Medical Centerca Health SystemStart: 52-12-8204Vmlllnc ScreeningTobacco ScreeningSumma Health Wadsworth - Rittman Medical Centerca Health SystemStart: 06-08-7981Dsvvk BMI ScreeningAdult BMI ScreeningSumma Health Wadsworth - Rittman Medical Centerca Health SystemStart: 97-00-2217Vpshgdzvec ScreeningDepression ScreeningSumma Health Wadsworth - Ritt[facility] Medical Centerca [facility] SystemStart: 22-34-9250Gcjeiyn ScreeningTobacco ScreeningSumma Health Wadsworth - Ritt[facility] Medical Centerca Health SystemStart: 30-73-1390Hwcbp BMI ScreeningAdult BMI ScreeningSumma Health Wadsworth - Rittman Medical Centerca [facility] SystemStart: 11-07-2025 End: 38-05-4060Mtifgwa encounter /03/2026 9:30 AM EST Office Visit [facility] [address] [place] [address] [address] [place] [address] Ottoniel Arias MD [address] [place] [address], [facility] [address] [facility] MedicineStart: 53-12-9276Rowxgenczp ScreeningDepression ScreeningProMedica Health SystemStart: 57-32-7583Gsjktrn ScreeningTobacco ScreeningProMedica Health SystemStart: 09-20-2025 End: 22-03-5165Bfyubxx encounter dqnpumgsu62/17/2025 10:10 AM EST Office Visit [facility] Part of [address] [place], [place] [id number] Jennifer Connors, PREHEMMER - CNM[address] [facility] [address] [place] [address] [facility] OBSTETRICS & GYNECOLOGY Part of [facility] Comment on above:AnnualStart: 73-84-5561Iagptihbkb ScreeningDepression Screening ProMHar[facility] 5tart: 99-42-7780Myztdki ScreeningTobacco Screening [facility] Hospitaltart: 07-18-2025 End: 00-87-6042Oruelcr encounter dynziowgo77/14/2025 10:00 AM EDT Office Visit [facility] [place] [address] Bryant Hines, RODERICK [address] [facility] [address] [place] [address] [facility] Centertart: 29-42-7696Aekyfjz ScreeningTobacco ScreeningProMedica Health SystemStart: 29-98-0064Lyrpg BMI Follow Up PlanAdult BMI Follow Up Plan ProMLakeWood Health Center SystemStart: 10-11-6763Cduli BMI ScreeningAdult BMI Screening [facility] SystemStart: 76-59-2261Ccgmhke ScreeningTobacco Screening [facility] SystemStart: 89-38-0948BquyoAdena Health Systemtart: 32-05-0058Lhgigzif identified in Urine by CultureUrine Culture [facility] Centertart: 14-17-3724TLCYB-19 Vaccine ( season)COVID-19 Vaccine ( season)[facility]Start: 78-00-6868Nmmqkclhu vaccinationInfluenza VaccineProMercy Health St. [facility]'S [facility] SystemStart: 05-19-2025 End: 99-05-3980Jnkrg metabolic 2000 panel - Serum or PlasmaBasic Metabolic Panel Lab Routine Hypokalemia RAKESH (acute kidney injury) Expected: 05/19/2025 (Approx imate), Expires: 05/05/2026[facility] Work Phone: Comment on above:Expected: 05/19/2025 (Approximate), Expires: 05/05/2026Start: 56-59-6783Szsqytsty vaccinationFlu vaccine (#1)Bon [facility] HospitalStart: 05-05-2025 End: 23-31-5229Trlppei encounter uwdoheaxv52/01/2025 10:40 AM EDT Office Visit [facility] [address] [place] [address] Sharon Lynch APRN-CNP [address] [place] [address] [facility] MedicineStart: 40-38-1902Nogxw BMI ScreeningAdult BMI ScreeningSelect [facility]ty [facility] SystemStart: 14-11-1977Hxzepcb ScreeningTobacco ScreeningSelect Medical Specialty [facility] System Start: 03-15-2025 End: 96-70-3461cbxpkvdzas77/11/2025 4:20 PM EDT Lab [facility] [address] [place] [address] [facility]GcteshCorey [facility] - LabStart: 03-15-2025 End: 32-32-6731Qzizndj encounter birbhwesc93/11/2025 10:30 AM EDT Office Visit [facility] [place] [address] [place] [phone] Bryant Hines PA-C [address] [place] [phone] [facility] Centertart: 46-94-1088Nyuwj BMI ScreeningAdult BMI Screening [facility] Health SystemStart: 99-51-9842Tyjrkfe ScreeningTobacco Screening [facility] SystemStart: 19-18-5867Egvuh BMI ScreeningAdult BMI Screening [facility] SystemStart: 86-30-4510Lrfpsar ScreeningTobacco Screening [facility] SystemStart: 01-05-2025 End: 00-96-7008Jzxuigp encounter xavommzss81/03/2025 9:00 AM EDT Office Visit [facility] [address] [place] [phone] Ottoniel Arias MD [address] [facility] [address] [facility]art: 59-19-9485Axyvq BMI ScreeningAdult BMI ScreeningOhioHealth [facility] Hospital Health SystemStart: 80-79-3020Tamllvy ScreeningTobacco ScreeningSelect [facility] SystemStart: 12-21-2024 End: 80-10-4220Lbizrjk encounter xygxsqaaw89/19/2025 10:30 AM EDT Office Visit [facility] [place] [address] [facility] [place] [phone] Megha Bragg MD [address] [facility], [address] [place] [phone] Bryant Hines PA-C [address], [address] [place] [address] [facility]: 12-20-2024 End: 36-15-7988ajpuzbhovpVizYkpqxk Physicians [facility]rology [facility] Centertart: 12-20-2024 End: 34-30-4509Etlsayw encounter procedureProSt. Anthony'S Hospitalca Physicians NeurologyStart: 00-34-3128Kmfcvylgle ScreeningDepression ScreeningProMercy Health St. Rita'S Medical [facility] SystemStart: 80-38-8837Gadqxhc ScreeningTobacco ScreeningProMercy Health St. Rita'S [facility] SystemStart: 11-22-2024 End: 18-06-8390Grlrywj encounter gxiegfqep97/18/2025 11:00 AM EST Office Visit [facility] [address] [place] [address] [place] [address] Janay Mustafa, PREHEMMER-RN RADIOLOGY [address], [place] [address] [facility] MedicineStart: 11-19-2024 End: 92-35-3602Zglmw metabolic 2000 panel - Serum or PlasmaBasic Metabolic Panel Lab Routine Seizure disorder ([facility]) Expected: 11/19/2024 (Approximate), Exp ires: 11/15/2025[facility] Work Phone: Comment on above:Expected: 11/19/2024 (Approximate), Expires: 11/15/2025Start: 11-19-2024 End: 83-43-1411IH TotalCK Total Lab Routine Seizure disorder ([facility]) Expected: 11/19/2024, Expires: 11/15/2025ProMercy Health St. Rita'S Medical Center SystemComment on above: Expected: 11/19/2024, Expires: 11/15/2025Start: 62-53-8304Leprwxn Screening Tobacco ScreeningProMercy Health St. Rita'S Medical Center SystemStart: 21-71-4383Xlhuy BMI Screening Adult BMI ScreeningSelect Medical Specialty [facility] SystemStart: 07-12-2024 End: 14-99-1977Gacgvrv encounter umbmvcxco30/08/2024 4:00 PM EDT [facility] [address] [place] [address] Megha Bragg MD [address] [place] [address], [address] [place] [phone] [facility] NeurologyStart: 06-24-2024 End: 73-97-4224Bauurqn encounter zjkzupddn24/20/2024 2:30 PM EDT Office Visit [facility] [address] [place] [address] Megha Bragg MD [facility], [address] [place] [phone] [facility] NeurologyStart: 61-72-7239LAOVV-19 Vaccine ( season)COVID-19 Vaccine ( season)[facility] HospitalStart: 07-57-3638Anxufbsth vaccinationInfluenza VaccineOhioHealth Marion General Hospital Health SystemStart: 06-05-7267IuwptldllCleveland Clinic [facility] Start: 84-16-6648Hhgfxuho admissionDiley Ridge Medical Centertart: 87-28-1028IktoecsmgDiley Ridge Medical Centertart: 03-18-2024 End: 70-68-4614Wopwyvn encounter sbcsxszur22/14/2024 1:15 PM EDT Office Visit [facility] [address] [place] [address] Ottoniel Arias MD [address] [place] [address] [facility] MedicineStart: 01-29-2024 End: 31-91-2022Yhqdmcr encounter wzlvzitpg98/26/2024 1:30 PM EDT Office Visit [facility] [address] [place] [address] Samantha Keyes, PREHEMMER-RN RADIOLOGY [address] [place] [address] Megha Bragg MD [address] [place] [address], [address] [place] [phone] (Work) [facility] NeurologyStart: 01-07-2024 End: 39-26-5403XXL W Auto Differential panel - BloodCBC auto differential Lab Routine Seizure (CMS-HCC) Muscle cramp Expected: 01/07/2024 (Approximate), Expires: 01/06/2025[facility] Work Phone: Comment on above:Expected: 01/07/2024 (Approximate), Expires: 01/06/2025Start: 01-07-2024 End: 56-63-9033Bgknskemyiawv metabolic 2000 panel - Serum or PlasmaComprehensive metabolic panel Lab Routine Seizure (CMS-HCC) Muscle cramp Expected: 01/07/2024 (Approximate), Expires: 01/06/2025[facility] Health SystemComment on above: Expected: 01/07/2024 (Approximate), Expires: 01/06/2025Start: 01-07-2024 End: 73-14-1247Yarejfnsi [Mass/volume] in Serum or PlasmaMagnesium Lab Routine Seizure (CMS-HCC) Muscle cramp Expected: 01/07/2024 (Approximate), Expires: [facility] Health SystemComment on above:Expected: 01/07/2024 (Approximate), Expires: 01/06/2025Start: 01-07-2024 End: 17-52-4831Fbflgmezd [Mass/volume] in Serum or PlasmaPhosphorus Lab Routine Seizure (CMS-HCC) Muscle cramp Expected: 01/07/2024 (Approximate), Expires: 0 01/06/2025[facility] SystemComment on above:Expected: 01/07/2024 (Approximate), Expires: 01/06/2025Start: 01-07-2024 End: 00-34-7697OSZ with ReflexTSH with Reflex Lab Routine Seizure (CMS-HCC) Muscle cramp Expected: 01/07/2024 (Approximate), Expires: 01/06/2025[facility] SystemComment on above:Expected: 01/07/2024 (Approximate), Expires: 01/06/2025Start: 97-96-5394Njwlkymrzz ScreeningDepression ScreeningAsheville Specialty Hospitaltart: 25-83-9876Htedvvxlp vaccinationInfluenza VaccineAsheville Specialty Hospitaltart: 48-64-3090Hmewbizjn for malignant neoplasm of cervixPap SmearAsheville Specialty Hospitaltart: 26-41-0543Pzcvdeooi B vaccine (1 of 3 - 19+ 3-dose series)Hepatitis B vaccine (1 of 3 - 19+ 3-dose series)[facility] HospitalStart: 56-70-0607Beqsx BMI Follow Up PlanAdult BMI Follow Up PlanAsheville Specialty Hospitaltart: 98-94-5969Nqnixpkuv C screeningHepatitis C screenBon [facility] HospitalStart: 19-61-7248UDD screeningHIV screenBon [facility] Centerart: 64-99-3560Conlyvctt A vaccine (2 of 2 - 2-dose series)Hepatitis A vaccine (2 of 2 - 2-dose series)[facility] HospitalStart: 72-00-9034UEF vaccine (2 - 2-dose series)HPV vaccine (2 - 2-dose series)[facility] Hospitalart: 33-08-3221Hvbvotgrci ScreenDepression ScreenBon [facility] HospitalStart: 85-42-0441Lqqvfgzye vaccine (2 of 2 - 2-dose childhood series) Varicella vaccine (2 of 2 - 2-dose childhood series)[facility] Start: 39-79-8376Bxzztwvls for Chlamydia trachomatisChlamydia ScreeningAsheville Specialty Hospitaltart: 99-81-3056Vrsfroq CounselingTobacco CounselingMercy Health Springfield Regional Medical Center End: 65-66-7925Gashf metabolic 2000 panel - Serum or PlasmaBasic Metabolic Panel Lab Routine Seizure disorder (CMS-HCC) 1 Occurrences starting 03/15/2025 until 03/15/2026[facility] Medical CenterComment on above:1 Occurrences starting 03/15/2025 until 03/15/2026 End: 06-10-0484Sijvm Metabolic Panel w/ Reflex to MGBasic Metabolic Panel w/ Reflex to MG Lab Routine Daily for 3 Days starting 04/26/2025 until 04/28/2025, 1 completedSouthampton Memorial Hospital MantaComment on above:Daily for 3 Days starting 04/26/2025 until 04/28/2025, 1 completed End: 98-24-7269W-reactive proteinC-reactive protein Lab Routine Seizure ([facility]) Muscle cramp 1 Occurrences starting 01/07/2024 until 01/06/2025ProMediSpace Monkey Health SystemComment on above:1 Occurrences starting 01/07/2024 until 01/06/2025 End: 57-11-6600GIW W Auto Differential panel - BloodProSt. Anthony'S HospitalSpace Monkey Health System End: 03-30-8610JAL W Auto Differential panel - BloodCBC with Auto Differential Lab Routine Daily for 3 Days starting 04/26/2025 until 04/28/2025, 1 completed [facility] [employer] [facility] on above:Daily for 3 Days starting 04/26/2025 until 04/28/2025, 1 completed End: 13-21-5036CU TotalProDynadec System End: 22-99-3435IY TotalCK Total Lab Routine Seizure ([facility]) Muscle cramp 1 Occurrences starting 01/07/2024 until 01/06/2025ProMediTopcom Europe SystemComment on above:1 Occurrences starting 01/07/2024 until 01/06/2025 End: 51-64-2954Buliyrpftngws metabolic 2000 panel - Serum or PlasmaProMedica Work Phone: End: 34-03-3624Adpiky monitor studyProMedica Work Phone: End: 51-56-2783Slwyzo monitor studyLong Term Monitoring for Epilepsy / LTME 5 Day Neurology Routine Breakthrough seizure ([facility]) Seizure disorder ([facility]) 1 Occurrences starting 07/12/2024 until 07/12/2025[facility] Work Phone: Comment on above:1 Occurrences starting 07/12/2024 until 07/12/2025Ionized calciumProMedica Work Phone: End: 52-42-8104SRYYLP Lab Routine Seizure ([facility]) Muscle cramp 1 Occurrences starting 01/07/2024 until 01/06/2025[facility] Health SystemComment on above:1 Occurrences starting 01/07/2024 until 01/06/2025 End: 37-97-1240Fnaisffvgvaqe LevelBon [facility]otech HealthcareComment on above:One Time for 1 Occurrences starting 04/26/2025 until 04/26/2025 End: 14-60-3174Gwahfqbxwofch, SLevetiracetam, S Lab Routine Seizure disorder ([facility]) 1 Occurrences starting 03/15/2025 until 03/15/2026[facility] Work Phone: Comment on above:1 Occurrences starting 03/15/2025 until 03/15/2026 End: 48-22-8814Ptvvilwep [Mass/volume] in Serum or PlasmaProMedica Health System End: 14-48-6707Otmfbbunf, serumProMedica Health SystemOxygen Therapy - Maintain SpO2: 90%; *[employer] Guidelines for O2: Yes; Document: \[email or web address]\epi c\EPIC_Reference\Orders\Respiratory Care Guidelines\CPG Oxygen 2022.pdfPro[facility] Work Phone: Oxygen therapy [Minimum Data Set]Initiate Oxygen Therapy Protocol Respiratory Care Routine As Needed until discontinued starting 04/25/2025on Rotech HealthcareComment on above:As Needed until discontinued starting 04/25/2025Patient EducationDepression, Adult (DC) [facility] Behavioral Health DC Instructions Know your [facility] Work Phone: Patient [facility] Work Phone: End: 38-19-3333Hekhdfnli [Mass/volume] in Serum or PlasmaProMedica Work Phone: End: 23-78-3764Ephahssbp [Moles/volume] in Serum or PlasmaProMedica Health System End: 13-18-0098Fbcyshckm [Moles/volume] in Serum or PlasmaProMedica Health System End: 67-78-1647Qkkxwxvqe levelProlactin level Lab Routine Seizure ([facility]) Muscle cramp 1 Occurrences starting 01/07/2024 until 01/06/2025[facility] Health SystemComment on above:1 Occurrences starting 01/07/2024 until 01/06/2025 Immunizations Immunization DateImmunizationNotesCare GbnharvhXxggwram14-98-0772tbzctfcvklykm polysaccharide (groups A, C, Y and W-135) diphtheria toxoid conjugate vaccine (MCV4P)Ottoniel Arias MD Work Phone: [facility]08-14-2017tetanus toxoid, reduced diphtheria toxoid, and acellular pertussis vaccine, adsorbedOttoniel Arias MD Work Phone: [facility] Medical CenterYyiveb76-44-3350forbakzua A vaccine, pediatric/adolescent dosage, 2 dose scheduleOttoniel Arias MD Work Phone: [facility]09-12-2012human papilloma virus vaccine, quadrivalentOttoniel Arias MD Work Phone: [facility]09-12-2012tetanus toxoid, reduced diphtheria toxoid, and acellular pertussis vaccine, adsorbedOttoniel Arias MD Work Phone: [facility] Medical CenterRuefse13-89-9984olbcesonbo, tetanus toxoids and acellular pertussis vaccine, unspecified formulationOttoniel Arias MD Work Phone: [facility]08-04-2005measles, mumps and rubella virus vaccineOttoniel Arias MD Work Phone: [facility] CenterTvuzwx45-55-5142pteytmtxpzkt conjugate vaccine, 7 valentOttoniel Arias MD Work Phone: [facility] CenterDkjzsg31-45-9241njblqeluly vaccine, inactivatedMuadrienne Arias MD Work Phone: [facility] CenterGbisbl87-25-3925lvpmomsmr virus vaccineOttoniel Arias MD Work Phone: [facility] Work Phone: [phone]pzip, tetanus toxoids and acellular pertussis vaccine, unspecified formulationOttoniel Arias MD Work Phone: [facility] CenterLhpdhw18-70-2888vxlxgikydaj influenzae type b vaccine, conjugate unspecified formulationOttoniel Arias MD Work Phone: [phone]07-11-2001measles, mumps and rubella virus vaccineMuhamid Hugo PANG Work Phone: [phone] CenterLydayf80-65-9811kdmsvzrdyu, tetanus toxoids and acellular pertussis vaccine, unspecified formulationMuhamid Hugo PANG Work Phone: [facility] CenterDgslrq38-44-1977dukyrvpsf B vaccine, pediatric or pediatric/adolescent dosageMuadrienne Arias MD Work Phone: [phone] CenterPuaciq39-41-8689ljlccrwymv vaccine, inactivatedMuhamid Hugo PANG Work Phone: [phone]27[facility] CenterFremwg08-89-5617ofgotrtrdl, tetanus toxoids and acellular pertussis vaccine, unspecified formulationMuhamid Hugo PANG Work Phone: [phone] CenterUplxid79-55-6918tedlcscnylf influenzae type b vaccine, conjugate unspecified formulationMuadrienne Arias MD Work Phone: [phone] CenterZlyxag42-08-0857lqozbewzd B vaccine, pediatric or pediatric/adolescent dosageMuadrienne Arias MD Work Phone: [phone] CenterExhyjv37-37-4202fgzjuafvin vaccine, inactivatedMuadrienne Arias MD Work Phone: [phone] CenterLmtpmd92-49-5648hbxggvbalg, tetanus toxoids and acellular pertussis vaccine, unspecified formulationMuadrienne Arias MD Work Phone: [phone] CenterEqtflh21-15-8975njryxsbhwdz influenzae type b vaccine, conjugate unspecified formulationMuhamholley Arias MD Work Phone: [facility] CenterPbnhui58-61-5216ndnqgokju B vaccine, pediatric or pediatric/adolescent dosageMuadrienne Arias MD Work Phone: [phone] CenterTuvgph95-90-1326ejtukkazsu vaccine, unspecified formulationMuadrienne Arias MD Work Phone: [facility] CenterBirkgy66-64-3387cknrcplti B vaccine, pediatric or pediatric/adolescent dosageMuadrienne Arias MD Work Phone: [facility] HospitalLoveLab.com INC.NEGATED: Highlighted row has not occurred!96-60-1510Hmgesgdbd Vaccine, Quadrivalent, AdjuvantedMuhamid Hugo PANG Work Phone: [facility] HospitalLoveLab.com INC.Comment on above:Deferred: Patient decision Payers DatePayer CategoryPayerPolicy [id number] Care Other (unspecified) [id number] Health Insurance [facility] CHOICE PLUS [id number] 2022-Present [phone] [address] [address] [place] [address] [id number] Health Insurance [id number] [id number] 2.16.840.1.602593.3.57[id number] 2.16.840.1.155489.3.579.2.013584-65-7987Gbacpmt225439 2..840.1.779747.3.57[id number] 2.16.840.1.061538.3.57[id number] 2.16.840.1.147591.3.579.2.165877-06-8049Lthdybd56968872 2.16.840.1.657230.3.57[id number] 2.16.840.1.536068.3.57[id number] 2.16.840.1.954930.3.579.2.750110-49-7402Rqpeoqg95670220 2.16.840.1.031152.3.579.2.582659-87-7643Nccopjc32391424 2.16.840.1.469434.3.579.2.047670-40-7075Pkebzme88530773 2.16840.1.225506.3.579.2.956333-20-0018Csbumsp633274750 2.16840.1.393466.3.579.2.336967-89-6316Avusojt176752341 2.840.1.570590.3.57[id number] 2.840.1.337275.3.579.2.547806-40-8607Znlvbml555421375 2.840.1.534742.3.579.2.725023-75-3704Aqzkvnc120411228 2.840.1.290694.3.579.2.398429-21-9553Eyukole195630860 2.16840.1.532488.3.579.2.194053-16-8120Jilirbs498422065 2.840.1.001716.3.579.2.678900-43-4094Zsroqof37119126 2.840.1.665234.3.579.2.698085-30-0800Ntobmmg475432787 2.840.1.524228.3.579.2.165734-91-6488Zrkiilt915491492 2.16840.1.183332.3.579.2.578362-02-7739Ncssnsq346722995 2.16840.1.008988.3.579.2.342760-97-9940Letmvfl685298854 2.16.840.1.668304.3.579.2.784921-65-9545Banybtp438919894 2.16.840.1.207173.3.579.2.662362-55-2449Leutmvn898796589 2.16.840.1.199948.3.579.2.203915-89-8180Qtzikxz06671669 2.16.840.1.585163.3.579.2.50971-57-8222Najzsgk97706564 2.16.840.1.813591.3.579.2.91086-26-7564Izwqape62558754 2.16.840.1.472254.3.579.2.84159-74-0296Uopadat67987075 2.16.840.1.121001.3.579.2.57014-42-9426Pfhocea39925642 2.16.840.1.498137.3.579.2.02227-17-4455Yujwnsg66772558 2.16.840.1.179689.3.579.2.46850-72-5411Cljmius71130459 2.16.840.1.418928.3.579.2.12060-29-7407Ghseyse4846955 2.16.840.1.915676.3.579.2.71228-12-4430Sutp-grwLdmjjtb27860412 2.16.840.1.872717.3.579.2.657Aoyqeog98209206 2.16840.1.815096.3.579.2.531 Social History DateTypeDetailFacilityUnknown if ever smokedSmart Education Other Start: 09-12-2024 End: 02-58-7383Cri Assigned At BirthNoStartup [place] Other Start: 47-41-5312Fmpfann smoking status NHISUnknown if ever smokedDiley Ridge Medical Centertart: 89-70-0725Hjr Assigned At BirthFeOhioHealth Grove City Methodist Hospitaltart: 69-83-8338Yjuypkr smoking status NHISSmokes tobacco dailySelect Medical Specialty [facility] End: 57-57-8608Ymshwnu of tobacco useCigarette SmokerSelect Medical Specialty Hospital [facility] Start: 07-12-2024 End: 56-30-1125Feujzdf use and exposureSmokeless tobacco non-userSelect Medical Specialty Hospital [facility] SystemStart: 09-12-2024 End: 82-22-1080Mtgkgjaua beverage intakeEx-drinker (finding)[facility] SystemStart: 09-12-2024 End: 65-67-4660Rcfggim of Social functionMercy Health Springfield Regional Medical CenterHas the electric, gas, oil, or water company threatened to shut off services in your home in past 12MoNOhioHealth Marion General Hospital SystemHow often to you have a drink containing alcohol?NeverMercy Health Springfield Regional Medical CenterHow many standard drinks containing alcohol do you have on a typical day?Patient does not drinkSelect Medical Specialty Hospital - [facility] SystemStart: 14-11-3138Tvxpoir CommentPatient just found out she was [facility] SystemStart: 53-15-4056Pzl assigned at birthNot on file [facility] Hospitaltart: 05-10-2015 End: 89-72-1305TujDpypgb (finding)[facility] SystemStart: 01-29-2024 End: 67-81-8372Pdhufca smoking status NHISEx-smokerSelect Medical Specialty Hospital [facility] End: 10-94-5172Zxdkaqe of tobacco useCurrent smokerSelect Medical Specialty Hospital [facility] SystemStart: 11-05-2024 End: 17-06-9851Niprwgibk beverage intakeCurrent drinker of alcohol (finding) [facility] SystemHow often to you have a drink containing alcohol?2-4 times a monthSelect Medical Specialty Hospital - [facility] SystemHow many standard drinks containing alcohol do you have on a typical day?1 or 2PChillicothe VA Medical Center SystemStart: 11-05-2024 Alcohol Commentx1/weekSelect Medical Specialty Hospital [facility] SystemHow hard is it for you to pay for the very basics like food, housing, medical care, and heatingNot very hard [facility] SystemStart: 36-35-8608Tupycyf CommentrarelyPChillicothe VA Medical Center SystemStart: 39-66-1188LwgwvftnxZnjZaqnbt Health SystemStart: 94-70-7212Ssfwntf smoking status NHISNever smoked tobaccoPrescott Va Medical Center [employer](I/We) worried whether (my/our) food would run out before (I/we) got money to buy more.Never trueBon Aurora West HospitalK2 Media [facility] Goals DatePatient GoalDesired Activity/StatePersonal health goalComment on above: Evaluation of progress towards goal: Plan to return home with spouse. Functional Status GaiaXfgidsvswdDdnxcnLfjnpwgc92-10-2244Bripsyisop statusPatient at Baseline [facility] Work Phone: [phone]ph statusDisability Status Patient Not at BaselineParkview Health [facility] Hospital Work Phone: [facility] Mental Status XbqhAdotbhxtomQvoagwAnzuaoke84-34-0104Ygyxmqjnn functionCognitive Status Patient at BaselineParkview [facility] Work Phone: Clinical Notes 07-22-2023 to 06-20-2025 Note Date & FamrKnezKazoljvm59-21-7451 Hospital Discharge instructions* Discharge Instructions* Jocelyn De Guzman APRN - CNP - 06/20/2025 2:57 PM EDT Please call EQUIT[facility] TRADER tomorrow for outpatient follow-up. Your ultrasound today [...] through Care Everywhere. * Cannabinoid Hyperemesis Syndrome (Barb[place]) documented in this encounterBon [facility]08-22-2025 Miscellaneous Notes* Telephone Encounter - Lacy Sanhces CNA - 05/26/2025 8:49 AM EDT Attempted to call patient with no answer. Left voicemail to call office. ----- Message from VIJAYA Schaefer sent at 05/22/2025 7:48 PM EDT ----- Labs are wnl ----- Message ----- From: Lab, Background User Sent: 05/19/2025 6:41 PM EDT To: VIJAYA Schaefer documented in this encounterMercy Health Springfield Regional Medical Center08-22-2025 Telephone encounter Note* Telephone Encounter - Lacy Sanches CNA - 05/26/2025 8:49 AM EDT Attempted to call patient with no answer. Left voicemail to call office. ----- Message from VIJAYA Schaefer sent at 05/22/2025 7:48 PM EDT ----- Labs are wnl ----- Message ----- From: Lab, Background User Sent: 05/19/2025 6:41 PM EDT To: VIJAYA Schaefer [facility]08-01-2025 History of Present illness Narrative* [...] discharge follow up. She was admitted to [facility] for hyperemesis cannabis syndrome. She had [...] VIJAYA Schaefer 05/07/25 1321 documented in this encounterMer[facility]07[facility] History of Present illness Narrative* Bryant Hines PA-C - 04/28/2025 1:30 PM EDT [facility] Neurology Office Note 04/26/2025 2:10 PM Patient info: Yolanda Villanueva is a 25 y.o. female Account No.: [id number] Acct: : 2000 PCP: OTTONIEL ARIAS MD [...] as colitis/enteritis. Patient was then transferred to [facility] for further management. Follow up 12/21/24 [...] Hines PA-C 04/28/25 1409 documented in this encounterMer[facility] Health [facility]07-23-2025 History of Present illness Narrative* [...] to singh for help at this time. Pasteurizing Machine Operator to bedside. Patient noted to be having a seizure, expert medical writer requested additional staff at bedside. Multiple RNs, Vashti RN converting supervisor, Mari cnc manager, and Jocelyn CHARLTON all at bedside. Patient was positioned to left side. HR 122, BP 150/73, SPO2 97%. Patient is able to speak to expert medical writer and follow commands following seizure. * Veronique Lyn RN - 04/26/2025 6:42 AM EDT Pasteurizing Machine Operator to bedside for morning assessment. Patient is resting in bed. Patient is A&O x4. Breathing is regular and unlabored. Abdomen is soft and tender, patient reports generalized abdominal aching. Patient does report feeling nauseous. Patient states zofran does not work for her, expert medical writer will request new orders. Patient denies [...] is set. Care ongoing. [facility] Hospital Discharge instructions* Discharge Instructions* Jocelyn De Guzman APRN - CNP - 04/26/2025 3:56 PM EDT Stop smoking marijuana, this will help prevent further episodes of vomiting. Take your seizure medications as prescribed. Follow up with your pcp. * Attachments The following attachments cannot be sent through Care Everywhere. * Cannabinoid Hyperemesis Syndrome ([place]) documented in this encounterStaff[facility]06-11-[facility]25 History of Present illness Narrative* Bryant Hines PA-C - 03/15/2025 10:30 [facility] 03/14/2025 11:55 AM Patient info: Yolanda Villanueva is a 24 y.o. female Account No.: [id number] Acct: : 2000 PCP: OTTONIEL ARIAS MD [...] as colitis/enteritis. Patient was then transferred to [facility] for further management. Follow up 12/21/24 [...] Hines PA-C 03/15/25 1046 documented in this encounterMer[facility]03-19-2025 History of Present illness Narrative* Bryant Hines PA-C - 12/21/2024 10:30 AM EDT [facility] Neurology Office Note 12/20/2024 9:58 AM Patient info: Yolanda Villanueva is a 24 y.o. female Account No.: [id number] Acct: : 2000 PCP: OTTONIEL ARIAS MD [...] as colitis/enteritis. Patient was then transferred to [facility] for further management. Past Medical Hx: [...] Hines PA-C 12/25/24 1726 documented in this [facility]03-04-2025 Miscellaneous Notes* Telephone Encounter - Vashti Price - 12/06/2024 2:[address] Bragg Reschedule: Patient's appointment with Dr. Bragg on December 20, 2024 needs to be rescheduled at this time due toprovider out of clinic. Contacted patient and offered to reschedule for next available with Dr. Bragg or Evaristo, per converting supervisor's instruction. Patient is rescheduled to see Bryant Hines at our [place] location on 12/21/24 at 10:30a for 60 minutes documented in this [facility]03-04-2025 Telephone encounter Note* Telephone Encounter - Vashti Price - 12/06/2024 2:[address] Bragg Reschedule: Patient's appointment with Dr. Bragg on December 20, 2024 needs to be rescheduled at this time due toprovider out of clinic. Contacted patient and offered to reschedule for next available with Dr. Bragg or Evaristo, per converting supervisor's instruction. Patient is rescheduled to see Bryant Hines at our [place] location on 12/21/24 at 10:30a for 60 minutes [facility]02-18-2025 Miscellaneous Notes* Telephone Encounter - aStnam Anderson CMA - 11/22/2024 11:32 AM EST Patient called make a new appt. Referral placed today. Call back [phone] * Telephone Encounter - Jordana Menezes - [...] getting the labs done. documented in this encounterMer[facility]02-18-2025 Telephone encounter Note* Telephone Encounter - Satnam Anderson CMA - 11/22/2024 11:32 AM EST Patient called make a new appt. Referral placed today. Call back [phone] [facility]02-18-2025 Telephone encounter Note* Telephone Encounter [...] with us after getting the labs done. [facility]02-18-2025 History of Present illness Narrative* Janay Mustafa, PREHEMMER-RN RADIOLOGY - 11/22/2024 11:00 AM EST Subjective Patient ID: Yolanda Villanueva is a 24 y.o. female. The patient is here today for discharge followup from hospital. Transition of Care Med Rec completed? Yes Discharged medications: Medications have been reviewed and reconciled with the most recent facilitydischarge document. HPI Yolanda presents with her spouse, after admission to [facility] on 11/05/2024-11/12/2024. She was admitted for [...] for nephrology appointment. Additionally, sees psychiatry at [facility]. Yolanda states she feels dizzy when [...] ear normal. Nose: Rhinorrhea present. Mouth/Throat: Lips: [place]. Mouth: Mucous membranes are moist. Pharynx: Oropharynx [...] all orders for this visit: Seizure disorder ([facility]) Focal epilepsy ([facility]) Acute kidney injury ([facility]) - Ambulatory referral to Nephrology (Non[facility]); Future Eczema of right hand - clobetasoL (TEMOVATE) 0.05 % ointment; Apply 1 Application topically nightly. VIJAYA House 11/22/24 1249 documented in this encounterMercy [facility]02-11-2025 Miscellaneous Notes* Telephone Encounter - [...] Disease and Neurology Name of Discharging Facility: [facility] Date of Facility Discharge: 11.05.24-11.12.24 Date of Interactive Contact and Name of Production Staff Worker: 11.15.24 0941 Spoke with the patient. Medication [...] to have done 11/19/2024 documented in this encounterMer[facility]02-11-2025 Telephone encounter Note* Telephone Encounter [...] Disease and Neurology Name of Discharging Facility: [facility] Date of Facility Discharge: 11.05.24-11.12.24 Date of Interactive Contact and Name of Production Staff Worker: 11.15.24 0941 Spoke with the patient. Medication [...] Other Services Utilized/Needed by the Patient: -None [facility]02-11-2025 Telephone encounter Note* Telephone Encounter - VIJAYA House - 11/15/2024 9:41 AM EST Order were placed for labs, to have done 11/19/2024 [facility]02-08-2025 Nurse Note* Yadira Vigil RN - 11/12/2024 2:43 PM EST AVS reviewed with patient and spouse. All questions addressed, provided vimpat script, belongings sent with patient. Patient declined staff assistance to vehicle. - Yadira Vigil RN 11/12/24 2:45 PM documented in this encounterMercy Health [facility]02-08-2025 Hospital course Narrative* Oliverio Dennis MD - 11/12/2024 11:59 AM EST Inpatient Discharge Summary BRIEF OVERVIEW Admitting Provider: Marie Singh, DO Discharge Provider: Oliverio Dennis M.D Primary Care Physician at Discharge: OTTONIEL ARIAS MD [phone] Admission Date: 11/05/2024 Discharge Date: 11/12/2024 Primary [...] rash.Once stabilized was transferred to floor under [facility] as primary on 11/07/2024. 1. Breakthrough [...] This note was completed using a voice fishing tool technician oil well system. Every effort was made to ensure accuracy. However, inadvertent computerized fishing tool technician oil well errors may be present. documented in this encounterMayo Memorial HospitalDynadec [id number] Miscellaneous Notes* Plan of Care - Yadira Vigil RN - 11/12/2024 10:54 AM EST Problem: Pain Goal: Patient goal is pain score less than 4, able to rest, and participant in treatment plan as appropriate Description: INTERVENTIONS: 1. Encourage patient or legal associate financial representative to report early pain and ask [...] per policy 9. Teach patient or legal associate financial representative interventions for comforting Outcome: Progressing Note: [...] at the bedside 7. Instruct patient/ patient associate financial representative about use of safety devices 8. Include patient/ patient associate financial representative in decisions related to safety Outcome: Progressing Note: Evaluation of progress towards goal: Bed locked in lowest position, call light within reach, belongings at bedside, hourly rounding maintained, patient independent Problem: Knowledge Deficit Goal: Patient/patient associate financial representative demonstrates understanding of disease process, treatment [...] Score of =/> 25 or indicated by [facility] Assessment Goal: Patient should be free from fall Description: Interventions: 1. [place] to environment 2. Hourly rounds addressing the [...] non-skid footwear 11. Teach patient and patient associate financial representative to maintain environment for safety and [...] (cane, walker) within reach 19. Request patient associate financial representative bring adaptive equipment/mobility aids from home or obtain and provide as needed 20. Consult pharmacy regarding effects of med's affecting mobility, cognition, and alternatives 21. Obtain physician order for PT if risk factors associated with mobility are present 22. Obtain physician order for OT as appropriate 23. Utilize diversional activities 24. Educate patient and patient associate financial representative how to maintain a safe environment during visitationtimes (notify nurse prior to leaving bedside) 25. Consider appropriateness of medical or non-medical officer psychiatry 26. Set up voiding schedule as appropriate (every 2 hours) Outcome: Progressing Note: Evaluation of progress towards goal: Patient remains free from falls at this time, hourly rounding maintained Problem: Neurosensory - Adult Goal: Absence of seizures Description: INTERVENTIONS 1. [place] and maintain seizure precautions 2. Monitor for seizure activity 3. Administer anti-seizure medications as ordered 4. Monitor neurological status Outcome: Progressing Note: Evaluation of progress towards goal: [place] and maintain seizure precautions. Monitor for seizure activity. Administer anti-seizure medications as ordered. Monitor neurological status * Plan of Care - Sam Jane RN - 11/12/2024 12:12 AM EST Problem: Pain Goal: Patient goal is pain score less than 4, able to rest, and participant in treatment plan as appropriate Description: INTERVENTIONS: 1. Encourage patient or legal associate financial representative to report early pain and ask [...] per policy 9. Teach patient or legal associate financial representative interventions for comforting Outcome: Progressing Note: [...] at the bedside 7. Instruct patient/ patient associate financial representative about use of safety devices 8. Include patient/ patient associate financial representative in decisions related to safety Outcome: Progressing Note: Evaluation of progress towards goal: patient remains free from injury at this time. Safety precautions in place. Problem: Knowledge Deficit Goal: Patient/patient associate financial representative demonstrates understanding of disease process, treatment plan,medications, and discharge instructions Description: INTERVENTIONS 1. Complete learning assessment and assess knowledge base 2. Provide teaching at level of understanding 3. Provide teaching via preferred learning method(s) Outcome: Progressing Note: Evaluation of progress towards goal: Pasteurizing Machine Operator educated pt on admission disease, medications, [...] be free from fall Description: Interventions: 1. [place] to environment 2. Hourly rounds addressing the [...] non-skid footwear 11. Teach patient and patient associate financial representative to maintain environment for safety and [...] (cane, walker) within reach 19. Request patient associate financial representative bring adaptive equipment/mobility aids from home or obtain and provide as needed 20. Consult pharmacy regarding effects of med's affecting mobility, cognition, and alternatives 21. Obtain physician order for PT if risk factors associated with mobility are present 22. Obtain physician order for OT as appropriate 23. Utilize diversional activities 24. Educate patient and patient associate financial representative how to maintain a safe environment during visitationtimes (notify nurse prior to leaving bedside) 25. Consider appropriateness of medical or non-medical officer psychiatry 26. Set up voiding schedule as appropriate (every 2 hours) Outcome: Progressing Note: Evaluation of progress towards goal: Pasteurizing Machine Operator assessed pt fall precautions in the [...] Goal: Absence of seizures Description: INTERVENTIONS 1. [place] and maintain seizure precautions 2. Monitor for [...] needed 4. Reorient patient post seizure 5. [place] and maintain seizure precautions 6. Instruct patient/legal associate financial representative to notify RN of any seizure activity 7. Instruct patient/legal associate financial representative to call for assistance with activity [...] Description: INTERVENTIONS: 1. Encourage patient or legal associate financial representative to report early pain and ask [...] per policy 9. Teach patient or legal associate financial representative interventions for comforting Outcome: Progressing Note: [...] at the bedside 7. Instruct patient/ patient associate financial representative about use of safety devices 8. Include patient/ patient associate financial representative in decisions related to safety Outcome: Progressing Note: Evaluation of progress towards goal: Pt remains free of falls/ injury Problem: Knowledge Deficit Goal: Patient/patient associate financial representative demonstrates understanding of disease process, treatment plan,medications, and discharge instructions Description: INTERVENTIONS 1. Complete learning assessment and assess knowledge base 2. Provide teaching at level of understanding 3. Provide teaching via preferred learning method(s) Outcome: Progressing Note: Evaluation of progress towards goal: Patient involved and informed about disease process, medications, and treatment plan. Pasteurizing Machine Operator to update patient throughout the shift [...] Score of =/> 25 or indicated by [facility] Assessment Goal: Patient should be free from fall Description: Interventions: 1. [place] to environment 2. Hourly rounds addressing the [...] non-skid footwear 11. Teach patient and patient associate financial representative to maintain environment for safety and [...] (cane, walker) within reach 19. Request patient associate financial representative bring adaptive equipment/mobility aids from home or obtain and provide as needed 20. Consult pharmacy regarding effects of med's affecting mobility, cognition, and alternatives 21. Obtain physician order for PT if risk factors associated with mobility are present 22. Obtain physician order for OT as appropriate 23. Utilize diversional activities 24. Educate patient and patient associate financial representative how to maintain a safe environment during visitationtimes (notify nurse prior to leaving bedside) 25. Consider appropriateness of medical or non-medical officer psychiatry 26. Set up voiding schedule as appropriate [...] Goal: Absence of seizures Description: INTERVENTIONS 1. [place] and maintain seizure precautions 2. Monitor for [...] needed 4. Reorient patient post seizure 5. [place] and maintain seizure precautions 6. Instruct patient/legal associate financial representative to notify RN of any seizure activity 7. Instruct patient/legal associate financial representative to call for assistance with activity [...] Description: INTERVENTIONS: 1. Encourage patient or legal associate financial representative to report early pain and ask [...] per policy 9. Teach patient or legal associate financial representative interventions for comforting Outcome: Progressing Note: [...] at the bedside 7. Instruct patient/ patient associate financial representative about use of safety devices 8. Include patient/ patient associate financial representative in decisions related to safety Outcome: Progressing Note: Evaluation of progress towards goal: patient remains free from injury at this time. Safety precautions in place. Problem: Knowledge Deficit Goal: Patient/patient associate financial representative demonstrates understanding of disease process, treatment plan,medications, and discharge instructions Description: INTERVENTIONS 1. Complete learning assessment and assess knowledge base 2. Provide teaching at level of understanding 3. Provide teaching via preferred learning method(s) Outcome: Progressing Note: Evaluation of progress towards goal: Pasteurizing Machine Operator assessed pt risk for infection in [...] Progressing Note: Evaluation of progress towards goal: Pasteurizing Machine Operator educated pt on admission disease, medications, treatment, and discharge planning. Will continue to monitor. Problem: Moderate - High Risk Fall Score Description: [place] Fall Score of =/> 25 or indicated by [facility] Assessment Goal: Patient should be free from fall Description: Interventions: 1. [place] to environment 2. Hourly rounds addressing the [...] non-skid footwear 11. Teach patient and patient associate financial representative to maintain environment for safety and [...] (cane, walker) within reach 19. Request patient associate financial representative bring adaptive equipment/mobility aids from home or obtain and provide as needed 20. Consult pharmacy regarding effects of med's affecting mobility, cognition, and alternatives 21. Obtain physician order for PT if risk factors associated with mobility are present 22. Obtain physician order for OT as appropriate 23. Utilize diversional activities 24. Educate patient and patient associate financial representative how to maintain a safe environment during visitationtimes (notify nurse prior to leaving bedside) 25. Consider appropriateness of medical or non-medical officer psychiatry 26. Set up voiding schedule as appropriate (every 2 hours) Outcome: Progressing Note: Evaluation of progress towards goal: Pasteurizing Machine Operator assessed pt fall precautions in the [...] Goal: Absence of seizures Description: INTERVENTIONS 1. [place] and maintain seizure precautions 2. Monitor for [...] needed 4. Reorient patient post seizure 5. [place] and maintain seizure precautions 6. Instruct patient/legal associate financial representative to notify RN of any seizure activity 7. Instruct patient/legal associate financial representative to call for assistance with activity based on assessment Outcome: Progressing Note: Evaluation of progress towards goal: patient remains free from seizures * Plan of Care - Anahi Astudlilo RN - 11/10/2024 1:34 PM EST Problem: Pain Goal: Patient goal is pain score less than 4, able to rest, and participant in treatment plan as appropriate Description: INTERVENTIONS: 1. Encourage patient or legal associate financial representative to report early pain and ask [...] per policy 9. Teach patient or legal associate financial representative interventions for comforting Outcome: Progressing Note: [...] at the bedside 7. Instruct patient/ patient associate financial representative about use of safety devices 8. Include patient/ patient associate financial representative in decisions related to safety Outcome: [...] hygiene technique. 7. Identify and instruct patient/patient associate financial representative in use of appropriate isolation precautionsfor identified infection/symptoms. 8. Provide and discuss with patient/patient associate financial representative on educational MDRO sheet. 9. Encourage and monitor nutritional status daily and consult assembler billiard table if indicated. 10. Implement neutropenic guidelines as needed. Outcome: Completed Note: Evaluation of progress towards goal: patient free of signs of infection Problem: Knowledge Deficit Goal: Patient/patient associate financial representative demonstrates understanding of disease process, treatment [...] Score of =/> 25 or indicated by [facility] Assessment Goal: Patient should be free from fall Description: Interventions: 1. [place] to environment 2. Hourly rounds addressing the [...] non-skid footwear 11. Teach patient and patient associate financial representative to maintain environment for safety and [...] (cane, walker) within reach 19. Request patient associate financial representative bring adaptive equipment/mobility aids from home or obtain and provide as needed 20. Consult pharmacy regarding effects of med's affecting mobility, cognition, and alternatives 21. Obtain physician order for PT if risk factors associated with mobility are present 22. Obtain physician order for OT as appropriate 23. Utilize diversional activities 24. Educate patient and patient associate financial representative how to maintain a safe environment during visitationtimes (notify nurse prior to leaving bedside) 25. Consider appropriateness of medical or non-medical officer psychiatry 26. Set up voiding schedule as appropriate [...] on patient's door 9. Provide patient/ patient associate financial representative with isolation education. Outcome: Completed Note: [...] Goal: Absence of seizures Description: INTERVENTIONS 1. [place] and maintain seizure precautions 2. Monitor for [...] needed 4. Reorient patient post seizure 5. [place] and maintain seizure precautions 6. Instruct patient/legal associate financial representative to notify RN of any seizure activity 7. Instruct patient/legal associate financial representative to call for assistance with activity based on assessment Outcome: Progressing Note: Evaluation of progress towards goal: patient free from seizures Problem: Neurosensory - Adult Goal: Absence of seizures Description: INTERVENTIONS 1. [place] and maintain seizure precautions 2. Monitor for [...] needed 4. Reorient patient post seizure 5. [place] and maintain seizure precautions 6. Instruct patient/legal associate financial representative to notify RN of any seizure activity 7. Instruct patient/legal associate financial representative to call for assistance with activity [...] Description: INTERVENTIONS: 1. Encourage patient or legal associate financial representative to report early pain and ask [...] per policy 9. Teach patient or legal associate financial representative interventions for comforting Outcome: Progressing Note: [...] at the bedside 7. Instruct patient/ patient associate financial representative about use of safety devices 8. Include patient/ patient associate financial representative in decisions related to safety Outcome: [...] hygiene technique. 7. Identify and instruct patient/patient associate financial representative in use of appropriate isolation precautionsfor identified infection/symptoms. 8. Provide and discuss with patient/patient associate financial representative on educational MDRO sheet. 9. Encourage and monitor nutritional status daily and consult assembler billiard table if indicated. 10. Implement neutropenic guidelines as needed. Outcome: Progressing Note: Evaluation of progress towards goal: No S/S of infection at this time Problem: Knowledge Deficit Goal: Patient/patient associate financial representative demonstrates understanding of disease process, treatment [...] on patient's door 9. Provide patient/ patient associate financial representative with isolation education. Outcome: Progressing Note: Evaluation of progress towards goal: Hand hygiene being performed before and after patient care Problem: Moderate - High Risk Fall Score Description: Mack Fall Score of =/> 25 or indicated by [facility] Assessment Goal: Patient should be free from fall Description: Interventions: 1. [place] to environment 2. Hourly rounds addressing the [...] non-skid footwear 11. Teach patient and patient associate financial representative to maintain environment for safety and [...] (cane, walker) within reach 19. Request patient associate financial representative bring adaptive equipment/mobility aids from home or obtain and provide as needed 20. Consult pharmacy regarding effects of med's affecting mobility, cognition, and alternatives 21. Obtain physician order for PT if risk factors associated with mobility are present 22. Obtain physician order for OT as appropriate 23. Utilize diversional activities 24. Educate patient and patient associate financial representative how to maintain a safe environment during visitationtimes (notify nurse prior to leaving bedside) 25. Consider appropriateness of medical or non-medical officer psychiatry 26. Set up voiding schedule as appropriate [...] Goal: Absence of seizures Description: INTERVENTIONS 1. [place] and maintain seizure precautions 2. Monitor for [...] needed 4. Reorient patient post seizure 5. [place] and maintain seizure precautions 6. Instruct patient/legal associate financial representative to notify RN of any seizure activity 7. Instruct patient/legal associate financial representative to call for assistance with activity [...] Description: INTERVENTIONS: 1. Encourage patient or legal associate financial representative to report early pain and ask [...] per policy 9. Teach patient or legal associate financial representative interventions for comforting Outcome: Progressing Note: [...] at the bedside 7. Instruct patient/ patient associate financial representative about use of safety devices 8. Include patient/ patient associate financial representative in decisions related to safety Outcome: [...] hygiene technique. 7. Identify and instruct patient/patient associate financial representative in use of appropriate isolation precautionsfor identified infection/symptoms. 8. Provide and discuss with patient/patient associate financial representative on educational MDRO sheet. 9. Encourage and monitor nutritional status daily and consult assembler billiard table if indicated. 10. Implement neutropenic guidelines as needed. Outcome: Progressing Note: Evaluation of progress towards goal: Patient is afebrile at this time with no signs or symptoms of infection. Will continue to monitor for infection and keep a clean environment for patient. Problem: Knowledge Deficit Goal: Patient/patient associate financial representative demonstrates understanding of disease process, treatment [...] Score of =/> 25 or indicated by [facility] Assessment Goal: Patient should be free from fall Description: Interventions: 1. [place] to environment 2. Hourly rounds addressing the [...] non-skid footwear 11. Teach patient and patient associate financial representative to maintain environment for safety and [...] (cane, walker) within reach 19. Request patient associate financial representative bring adaptive equipment/mobility aids from home or obtain and provide as needed 20. Consult pharmacy regarding effects of med's affecting mobility, cognition, and alternatives 21. Obtain physician order for PT if risk factors associated with mobility are present 22. Obtain physician order for OT as appropriate 23. Utilize diversional activities 24. Educate patient and patient associate financial representative how to maintain a safe environment during visitationtimes (notify nurse prior to leaving bedside) 25. Consider appropriateness of medical or non-medical officer psychiatry 26. Set up voiding schedule as appropriate [...] Description: INTERVENTIONS: 1. Encourage patient or legal associate financial representative to report early pain and ask [...] per policy 9. Teach patient or legal associate financial representative interventions for comforting Outcome: Progressing Note: [...] at the bedside 7. Instruct patient/ patient associate financial representative about use of safety devices 8. Include patient/ patient associate financial representative in decisions related to safety Outcome: [...] hygiene technique. 7. Identify and instruct patient/patient associate financial representative in use of appropriate isolation precautionsfor identified infection/symptoms. 8. Provide and discuss with patient/patient associate financial representative on educational MDRO sheet. 9. Encourage and monitor nutritional status daily and consult assembler billiard table if indicated. 10. Implement neutropenic guidelines as needed. Outcome: Progressing Note: Evaluation of progress towards goal: Patient displays no signs of infection. Able to demonstrate appropriate hand hygiene.Will continue to monitor patient, labs, and mews score. Problem: Knowledge Deficit Goal: Patient/patient associate financial representative demonstrates understanding of disease process, treatment [...] Score of =/> 25 or indicated by [facility] Assessment Goal: Patient should be free from fall Description: Interventions: 1. [place] to environment 2. Hourly rounds addressing the [...] non-skid footwear 11. Teach patient and patient associate financial representative to maintain environment for safety and [...] (cane, walker) within reach 19. Request patient associate financial representative bring adaptive equipment/mobility aids from home or obtain and provide as needed 20. Consult pharmacy regarding effects of med's affecting mobility, cognition, and alternatives 21. Obtain physician order for PT if risk factors associated with mobility are present 22. Obtain physician order for OT as appropriate 23. Utilize diversional activities 24. Educate patient and patient associate financial representative how to maintain a safe environment during visitationtimes (notify nurse prior to leaving bedside) 25. Consider appropriateness of medical or non-medical officer psychiatry 26. Set up voiding schedule as appropriate (every 2 hours) Outcome: Progressing Note: Evaluation of progress towards goal: Patient fall risk safety measures have been implemented.Continuing to monitor patient. Problem: Neurosensory - Adult Goal: Absence of seizures Description: INTERVENTIONS 1. [place] and maintain seizure precautions 2. Monitor for [...] states that she had been hospitalized at [facility] in [place] last summer. She has continued with outpatient treatment at [facility] in [place]. She has been seeing a psychiatric nurse practitioner and has also seen a therapist on an irregular basis. Shehas been on multiple psychotropic medications including Paxil, Effexor, olanzapine, Lamictal and Abilify. She states that she had been diagnosed with bipolar disorder at [facility]. She states family history is positive for [...] note were not included. DISCHARGE PLANNING NOTE Pasteurizing Machine Operator met with patient and , introduced self, and explained role. Patient is alert and oriented, sitting in bed, eating lunch, cooperative. Supportive at bedside. Patient and educated on safe discharge plan. Pt admitted 11/05/2024 with Seizure ([facility]) [R56.9] per chart review. Consults: Infectious Disease, Nephrology, Neurology, Psychiatry, and Rheumatology Discharge Barriers per Daily Transition Rounds and chart review: LR, medication adjustment, IV Mag,IV K Past Medical History: Diagnosis Date Anxiety March 2013 Depression March 2013 Eczema 2009 GERD (gastroesophageal reflux disease) Seizures ([facility]) Visual impairment 2004 Prior to admission patient was living with spouse/significant other and self care. Medical equipment patient used prior to admission includes: None. Patient was active and independent prior to admission. Patient denies need for transportation/ food/ prescription medication assistance resources. Patient is planning to transition home with self care/family assist as needed. PCP: OTTONIEL ARIAS MD Pharmacy: [facility] [place] PCP and pharmacy confirmed with patient. 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 Began an interview in order to complete a psychosocial assessment. Patient is a 24 year old female here for a workup after having a seizure. Psych consulted to reviewmedications as there is a concern for serotonin syndrome. When asked patient stated she is neither suicidal nor homicidal. Per patient she is treated for depression at [facility] in [place] where she is prescribed her psych medications. [...] Description: INTERVENTIONS: 1. Encourage patient or legal associate financial representative to report early pain and ask [...] per policy 9. Teach patient or legal associate financial representative interventions for comforting Outcome: Progressing Note: [...] at the bedside 7. Instruct patient/ patient associate financial representative about use of safety devices 8. Include patient/ patient associate financial representative in decisions related to safety Outcome: [...] hygiene technique. 7. Identify and instruct patient/patient associate financial representative in use of appropriate isolation precautionsfor identified infection/symptoms. 8. Provide and discuss with patient/patient associate financial representative on educational MDRO sheet. 9. Encourage and monitor nutritional status daily and consult assembler billiard table if indicated. 10. Implement neutropenic guidelines as needed. Outcome: Progressing Note: Evaluation of progress towards goal: Patient afebrile. Monitoring lab values. Problem: Knowledge Deficit Goal: Patient/patient associate financial representative demonstrates understanding of disease process, treatment [...] on patient's door 9. Provide patient/ patient associate financial representative with isolation education. Outcome: Progressing Note: Evaluation of progress towards goal: Patient remains afebrile. Monitoring labs. Problem: Moderate - High Risk Fall Score Description: Mack Fall Score of =/> 25 or indicated by [facility] Assessment Goal: Patient should be free from fall Description: Interventions: 1. [place] to environment 2. Hourly rounds addressing the [...] non-skid footwear 11. Teach patient and patient associate financial representative to maintain environment for safety and [...] (cane, walker) within reach 19. Request patient associate financial representative bring adaptive equipment/mobility aids from home or obtain and provide as needed 20. Consult pharmacy regarding effects of med's affecting mobility, cognition, and alternatives 21. Obtain physician order for PT if risk factors associated with mobility are present 22. Obtain physician order for OT as appropriate 23. Utilize diversional activities 24. Educate patient and patient associate financial representative how to maintain a safe environment during visitationtimes (notify nurse prior to leaving bedside) 25. Consider appropriateness of medical or non-medical officer psychiatry 26. Set up voiding schedule as appropriate [...] Goal: Absence of seizures Description: INTERVENTIONS 1. [place] and maintain seizure precautions 2. Monitor for [...] needed 4. Reorient patient post seizure 5. [place] and maintain seizure precautions 6. Instruct patient/legal associate financial representative to notify RN of any seizure activity 7. Instruct patient/legal associate financial representative to call for assistance with activity [...] Description: INTERVENTIONS: 1. Encourage patient or legal associate financial representative to report early pain and ask [...] per policy 9. Teach patient or legal associate financial representative interventions for comforting Outcome: Progressing Note: Evaluation of progress towards goal: Encourage patient or legal associate financial representative to report early pain and ask [...] at the bedside 7. Instruct patient/ patient associate financial representative about use of safety devices 8. Include patient/ patient associate financial representative in decisions related to safety Outcome: [...] hygiene technique. 7. Identify and instruct patient/patient associate financial representative in use of appropriate isolation precautionsfor identified infection/symptoms. 8. Provide and discuss with patient/patient associate financial representative on educational MDRO sheet. 9. Encourage and monitor nutritional status daily and consult assembler billiard table if indicated. 10. Implement neutropenic guidelines as needed. Outcome: Progressing Note: Evaluation of progress towards goal: Patient temperature measurement Q4, antibiotics given when indicated, hygiene maintained. Problem: Knowledge Deficit Goal: Patient/patient associate financial representative demonstrates understanding of disease process, treatment [...] be free from fall Description: Interventions: 1. [place] to environment 2. Hourly rounds addressing the [...] non-skid footwear 11. Teach patient and patient associate financial representative to maintain environment for safety and [...] (cane, walker) within reach 19. Request patient associate financial representative bring adaptive equipment/mobility aids from home or obtain and provide as needed 20. Consult pharmacy regarding effects of med's affecting mobility, cognition, and alternatives 21. Obtain physician order for PT if risk factors associated with mobility are present 22. Obtain physician order for OT as appropriate 23. Utilize diversional activities 24. Educate patient and patient associate financial representative how to maintain a safe environment during visitationtimes (notify nurse prior to leaving bedside) 25. Consider appropriateness of medical or non-medical officer psychiatry 26. Set up voiding schedule as appropriate [...] Description: INTERVENTIONS: 1. Encourage patient or legal associate financial representative to report early pain and ask [...] per policy 9. Teach patient or legal associate financial representative interventions for comforting Outcome: Progressing Note: [...] at the bedside 7. Instruct patient/ patient associate financial representative about use of safety devices 8. Include patient/ patient associate financial representative in decisions related to safety Outcome: [...] hygiene technique. 7. Identify and instruct patient/patient associate financial representative in use of appropriate isolation precautionsfor identified infection/symptoms. 8. Provide and discuss with patient/patient associate financial representative on educational MDRO sheet. 9. Encourage and monitor nutritional status daily and consult assembler billiard table if indicated. 10. Implement neutropenic guidelines as needed. Outcome: Progressing Note: Evaluation of progress towards goal: Patient temperature measurement Q4, antibiotics given when indicated, hygiene maintained. Problem: Knowledge Deficit Goal: Patient/patient associate financial representative demonstrates understanding of disease process, treatment [...] be free from fall Description: Interventions: 1. [place] to environment 2. Hourly rounds addressing the [...] non-skid footwear 11. Teach patient and patient associate financial representative to maintain environment for safety and [...] (cane, walker) within reach 19. Request patient associate financial representative bring adaptive equipment/mobility aids from home or obtain and provide as needed 20. Consult pharmacy regarding effects of med's affecting mobility, cognition, and alternatives 21. Obtain physician order for PT if risk factors associated with mobility are present 22. Obtain physician order for OT as appropriate 23. Utilize diversional activities 24. Educate patient and patient associate financial representative how to maintain a safe environment during visitationtimes (notify nurse prior to leaving bedside) 25. Consider appropriateness of medical or non-medical officer psychiatry 26. Set up voiding schedule as appropriate [...] follow Brigida Rae MD PGY-4, Neurology Resident [facility] * Plan of Care - Nicole Guerrero RN - 11/05/2024 3:53 PM EST Problem: Pain Goal: Patient goal is pain score less than 4, able to rest, and participant in treatment plan as appropriate Description: INTERVENTIONS: 1. Encourage patient or legal associate financial representative to report early pain and ask [...] per policy 9. Teach patient or legal associate financial representative interventions for comforting Outcome: Progressing Note: [...] at the bedside 7. Instruct patient/ patient associate financial representative about use of safety devices 8. Include patient/ patient associate financial representative in decisions related to safety Outcome: [...] hygiene technique. 7. Identify and instruct patient/patient associate financial representative in use of appropriate isolation precautionsfor identified infection/symptoms. 8. Provide and discuss with patient/patient associate financial representative on educational MDRO sheet. 9. Encourage and monitor nutritional status daily and consult assembler billiard table if indicated. 10. Implement neutropenic guidelines as needed. Outcome: Progressing Note: Evaluation of progress towards goal: Pt receiving antibiotics as ordered. Problem: Knowledge Deficit Goal: Patient/patient associate financial representative demonstrates understanding of disease process, treatment [...] supplement as ordered 13. Collaborate with clinical assembler billiard table 14. Include patient/ patient's associate financial representative in decisions related to nutrition Outcome: [...] Score of =/> 25 or indicated by [facility] Assessment Goal: Patient should be free from fall Description: Interventions: 1. [place] to environment 2. Hourly rounds addressing the [...] non-skid footwear 11. Teach patient and patient associate financial representative to maintain environment for safety and [...] (cane, walker) within reach 19. Request patient associate financial representative bring adaptive equipment/mobility aids from home or obtain and provide as needed 20. Consult pharmacy regarding effects of med's affecting mobility, cognition, and alternatives 21. Obtain physician order for PT if risk factors associated with mobility are present 22. Obtain physician order for OT as appropriate 23. Utilize diversional activities 24. Educate patient and patient associate financial representative how to maintain a safe environment during visitationtimes (notify nurse prior to leaving bedside) 25. Consider appropriateness of medical or non-medical officer psychiatry 26. Set up voiding schedule as appropriate (every 2 hours) Outcome: Progressing Note: Evaluation of progress towards goal: Fall precautions in place. Bed in low locked position. Call light in reach. Problem: Safety - Medical Restraint Goal: Remains free of injury from restraints (Restraint for Interference with Nursing Home Director) Description: INTERVENTIONS: 1. Determine that other, less [...] Free from restraint(s) (Restraint for Interference with Nursing Home Director) Description: INTERVENTIONS: 1. ONCE/SHIFT or MINIMUM Q12H: [...] Description: INTERVENTIONS: 1. Encourage patient or legal associate financial representative to report early pain and ask [...] per policy 9. Teach patient or legal associate financial representative interventions for comforting Outcome: Progressing Note: [...] at the bedside 7. Instruct patient/ patient associate financial representative about use of safety devices 8. Include patient/ patient associate financial representative in decisions related to safety Outcome: [...] hygiene technique. 7. Identify and instruct patient/patient associate financial representative in use of appropriate isolation precautionsfor identified infection/symptoms. 8. Provide and discuss with patient/patient associate financial representative on educational MDRO sheet. 9. Encourage and monitor nutritional status daily and consult assembler billiard table if indicated. 10. Implement neutropenic guidelines as needed. Outcome: Progressing Note: Evaluation of progress towards goal: Lines and tubing are clean and maintained. Caps and dressing are changed when appropriate. Problem: Knowledge Deficit Goal: Patient/patient associate financial representative demonstrates understanding of disease process, treatment [...] injury from restraints (Restraint for Interference with Nursing Home Director) Description: INTERVENTIONS: 1. Determine that other, less [...] Q2 checks on restraints. [facility] History of Present illness Narrative* [...] For questions please call: Answering Service at [phone] Or Office at [phone] This note was created with the assistance [...] FERRITIN 214 11/08/2024 Please contact me at [phone] (Office) or [phone] (Answering service) with any questions. Please feel free to contact me through [employer] Secure chat during the daytime hours, if no response after 5 minutes then call the answering service. Nestor Ramsey MD [facility] This note was created with the assistance of a speech-recognition program. Although the intention is to generate a document that actually reflects the content of the visit, no guarantees can be provided that every mistake has been identified and corrected by editing. * Georgette Morris, PREHEMMER-RN RADIOLOGY - 11/11/2024 12:45 PM EST Images from [...] Value Units Date/Time Resp Pathogens Panel/SARS CoV-2 [[id number]] (Abnormal) Collected: 11/11/24 0840 Specimen: Nasopharynx Updated: [...] 2 Not Detected Resp Pathogens Panel/SARS CoV-2 [[id number]] Collected: 11/05/24 0156 Specimen: Nasopharynx Updated: 11/05/24 [...] 2 Not Detected Mrsa Pcr nasal swab [[id number]] Collected: 11/05/24 0156 Specimen: Nasal Updated: 11/05/24 0340 Mrsa PCR Negative Urine culture [[id number]] Collected: 11/04/24 2257 Specimen: Urine, Clean Catch Midstream Updated: 11/06/24 1422 Culture 10,000 to 50,000 ORGANISMS/mL NORMAL URO GENITAL RAYMOND SARS/FLU A+B/RSV by NAAT/Molecular (M4RT Collection Tube) [[id number]] Collected: 11/04/24 1913 Specimen: Nasopharynx Updated: 11/04/242005 FLU A PCR Negative FLU B PCR Negative RSV by PCR Negative SARS CoV 2 BY PCR Not Detected Blood culture [[id number]] Collected: 11/04/24 181 Specimen: Blood Updated: 11/09/24 2238 Culture NO GROWTH 5 DAYS Blood culture [[id number]] Collected: 11/04/24 1715 Specimen: Blood Updated: 11/09/24 [...] From 7AM-7PM: Our team prefers to use [employer] for communication. From 7PM-7AM: Please call for our answering service. VIJAYA Lazar 11/11/24 [id number] * Esau Barboza RPH - 11/11/2024 12:43 PM EST [facility] Department of Pharmacy Pharmacist to Physician Communication The dose of oseltamivir for influenza A has been changed to 75 mg once followed by 30 mg every 12 hours per the [facility] approved renal dosing guidelines, based on [...] rash.Once stabilized was transferred to floor under [facility] as primary on 11/07/2024. 1. Breakthrough [...] Value Units Date/Time Resp Pathogens Panel/SARS CoV-2 [[id number]] (Abnormal) Collected: 11/11/24 0840 Specimen: Nasopharynx Updated: [...] 2 Not Detected Resp Pathogens Panel/SARS CoV-2 [[id number]] Collected: 11/05/24 0156 Specimen: Nasopharynx Updated: 11/05/24 [...] 2 Not Detected Mrsa Pcr nasal swab [[id number]] Collected: 11/05/24 0156 Specimen: Nasal Updated: 11/05/24 0340 Mrsa PCR Negative Urine culture [[id number]] Collected: 11/04/24 2257 Specimen: Urine, Clean Catch Midstream Updated: 11/06/24 1422 Culture 10,000 to 50,000 ORGANISMS/mL NORMAL URO GENITAL RAYMOND SARS/FLU A+B/RSV by NAAT/Molecular (M4RT Collection Tube) [[id number]] Collected: 11/04/24 191 Specimen: Nasopharynx Updated: 11/04/242005 FLU A PCR Negative FLU B PCR Negative RSV by PCR Negative SARS CoV 2 BY PCR Not Detected Blood culture [[id number]] Collected: 11/04/24 1812 Specimen: Blood Updated: 11/09/24 2238 Culture NO GROWTH 5 DAYS Blood culture [[id number]] Collected: 11/04/24 1715 Specimen: Blood Updated: 11/09/24 [...] This note was completed using a voice fishing tool technician oil well system. Every effort was made to ensure accuracy. However, inadvertent computerized fishing tool technician oil well errors may be present. * Carline Willard RN - 11/10/2024 8:10 PM EST Images from the original note were not included. FOLLOW-UP: Post-Intensive Care Rounding Note Patient: Yolanda Villanueva : 2000 Age: 24 y.o. Length of Stay: 5 days Admission Diagnosis: Seizure ([facility]) [R56.9] Electrolyte abnormality [E87.8] Reviewing patient due to her recent transfer out from Intensive Care. Recorded vital signs are stable and the patient is not noted to be in any apparent distress. Telemetry and monitoring noted. Staff may call with any issues or concerns regarding her clinical presentation or stability. Thank you, Carline Willard RN Rapid Response: [facility] * Devon Liu RN - 11/10/2024 12:31 PM EST Images from the original note were not included. FOLLOW-UP: Post-Intensive Care Rounding Note Patient: Yolanda Villanueva : 2000 Age: 24 y.o. Length of Stay: 5 days Admission Diagnosis: Seizure ([facility]) [R56.9] Reviewing patient due to her recent transfer out from Intensive Care. Recorded vital signs are stable and the patient is not noted to be in any apparent distress. Telemetry and monitoring noted. Staff may call with any issues or concerns regarding her clinical presentation or stability. Thank you, Devon Liu RN Rapid Response: [facility] * Nestor Ramsey MD - [...] 150 mL/hr, Last Rate: 150 mL/hr (11/09/24 8947) Laboratory Studies Results from last 7 days [...] FERRITIN 214 11/08/2024 Please contact me at [phone] (Office) or [phone] (Answering service) with any questions. Please feel free to contact me through [employer] Secure chat during the daytime hours, if no response after 5 minutes then call the answering service. Nestor Ramsey MD [facility] This note was created with the assistance of a speech-recognition program. Although the intention is to generate a document that actually reflects the content of the visit, no guarantees can be provided that every mistake has been identified and corrected by editing. * Georgette Morris, PREHEMMER-RN RADIOLOGY - 11/10/2024 10:12 AM EST Images from [...] such as enterovirus or drug rash from [facility] Neurology following Rhabdomyolysis RAKESH Nephrology [...] Value Units Date/Time Resp Pathogens Panel/SARS CoV-2 [[id number]] Collected: 11/05/24 015 Specimen: Nasopharynx Updated: 11/05/24 [...] 2 Not Detected Mrsa Pcr nasal swab [[id number]] Collected: 11/05/24 0156 Specimen: Nasal Updated: 11/05/24 0340 Mrsa PCR Negative Urine culture [[id number]] Collected: 11/04/24 2257 Specimen: Urine, Clean Catch Midstream Updated: 11/06/24 1422 Culture 10,000 to 50,000 ORGANISMS/mL NORMAL URO GENITAL RAYMOND SARS/FLU A+B/RSV by NAAT/Molecular (M4RT Collection Tube) [[id number]] Collected: 11/04/241912 Specimen: Nasopharynx Updated: 11/04/242005 FLU A PCR Negative FLU B PCR Negative RSV by PCR Negative SARS CoV 2 BY PCR Not Detected Blood culture [[id number]] Collected: 11/04/24 181 Specimen: Blood Updated: 11/09/242237 Culture NO GROWTH 5 DAYS Blood culture [[id number]] Collected: 11/04/24 1715 Specimen: Blood Updated: 11/09/24 [...] From 7AM-7PM: Our team prefers to use [employer] for communication. From 7PM-7AM: Please call for our answering service. VIJAYA Lazar 11/08/24 1131 VIJAYA Lazar 11/09/24 1651 VIJAYA Lazar 11/10/24 1336 * Oliverio Dennis MD - 11/10/2024 8:24 AM EST Principal Problem: Seizure ([facility]) Chief Complaint: Diarrhea is better, 2 bowel movements since yesterday, complains of pain at the site where she bit her tongue ASSESSMENT AND PLAN: Patient is a 24-year-old female with known Hx/o Seizure disorder, Depression/Anxiety, Eczema, Gastritis, former smoker initially admitted to ICU presented on 11/04/2024 with recurrent seizures, rash.Once stabilized was transferred to floor under [facility] as primary on 11/07/2024. 1. Breakthrough [...] Value Units Date/Time Resp Pathogens Panel/SARS CoV-2 [[id number]] Collected: 11/05/24 015 Specimen: Nasopharynx Updated: 11/05/24314 [...] 2 Not Detected Mrsa Pcr nasal swab [[id number]] Collected: 11/05/24 0156 Specimen: Nasal Updated: 11/05/24 0340 Mrsa PCR Negative Urine culture [[id number]] Collected: 11/04/24 225 Specimen: Urine, Clean Catch Midstream Updated: 11/06/24 1422 Culture 10,000 to 50,000 ORGANISMS/mL NORMAL URO GENITAL RAYMOND SARS/FLU A+B/RSV by NAAT/Molecular (M4RT Collection Tube) [[id number]] Collected: 11/04/24 1913 Specimen: Nasopharynx Updated: 11/04/242005 FLU A PCR Negative FLU B PCR Negative RSV by PCR Negative SARS CoV 2 BY PCR Not Detected Blood culture [[id number]] Collected: 11/04/24 181 Specimen: Blood Updated: 11/09/24 223 Culture NO GROWTH 5 DAYS Blood culture [[id number]] Collected: 11/04/24 1715 Specimen: Blood Updated: 11/09/24 [...] This note was completed using a voice fishing tool technician oil well system. Every effort was made to ensure accuracy. However, inadvertent computerized fishing tool technician oil well errors may be present. * Christian Griffiths RN - 11/09/2024 7:28 PM EST Images from the original note were not included. Post-Intensive Care Rounding Note Patient: Yolanda Villanueva : 2000 Age: 24 y.o. Length of Stay: 4 days Admission Diagnosis: Seizure ([facility]) [R56.9] Rapid response rounding on patient after transfer out of ICU. No acute changes noted. Staff encouraged to call with any issues, questions or concerns that may arise regarding the patient throughout the shift. Thank you, Prashant Griffiths RN Rapid Response: [facility] * Georgette Morris APRN-RN RADIOLOGY - 11/09/2024 11:41 AM EST Images from [...] such as enterovirus or drug rash from [facility] Seizure Neurology following Rhabdomyolysis RAKESH Nephrology following [...] Value Units Date/Time Resp Pathogens Panel/SARS CoV-2 [[id number]] Collected: 11/05/24 0156 Specimen: Nasopharynx Updated: 11/05/24 [...] 2 Not Detected Mrsa Pcr nasal swab [[id number]] Collected: 11/05/24 0156 Specimen: Nasal Updated: 11/05/24 0340 Mrsa PCR Negative Urine culture [[id number]] Collected: 11/04/24 225 Specimen: Urine, Clean Catch Midstream Updated: 11/06/24 1422 Culture 10,000 to 50,000 ORGANISMS/mL NORMAL URO GENITAL RAYMOND SARS/FLU A+B/RSV by NAAT/Molecular (M4RT Collection Tube) [[id number]] Collected: 11/04/24 191 Specimen: Nasopharynx Updated: 11/04/242005 FLU A PCR Negative FLU B PCR Negative RSV by PCR Negative SARS CoV 2 BY PCR Not Detected Blood culture [[id number]] Collected: 11/04/24 181 Specimen: Blood Updated: 11/08/242235 Culture NO GROWTH 4 DAYS Blood culture [[id number]] Collected: 11/04/24 1715 Specimen: Blood Updated: 11/08/242237 [...] From 7AM-7PM: Our team prefers to use [employer] acquired by [employer] for communication. From 7PM-7AM: Please call for [...] rash.Once stabilized was transferred to floor under [facility] as primary on 11/07/2024. 1. Breakthrough [...] Value Units Date/Time Resp Pathogens Panel/SARS CoV-2 [[id number]] Collected: 11/05/24 0156 Specimen: Nasopharynx Updated: 11/05/24 [...] 2 Not Detected Mrsa Pcr nasal swab [[id number]] Collected: 11/05/24 0156 Specimen: Nasal Updated: 11/05/24 0340 Mrsa PCR Negative Urine culture [[id number]] Collected: 11/04/24 225 Specimen: Urine, Clean Catch Midstream Updated: 11/06/24 1422 Culture 10,000 to 50,000 ORGANISMS/mL NORMAL URO GENITAL RAYMOND SARS/FLU A+B/RSV by NAAT/Molecular (M4RT Collection Tube) [[id number]] Collected: 11/04/24 1913 Specimen: Nasopharynx Updated: 11/04/24 2006 FLU A PCR Negative FLU B PCR Negative RSV by PCR Negative SARS CoV 2 BY PCR Not Detected Blood culture [[id number]] Collected: 11/04/24 1812 Specimen: Blood Updated: 11/08/24 223 Culture NO GROWTH 4 DAYS Blood culture [[id number]] Collected: 11/04/24 1715 Specimen: Blood Updated: 11/08/242237 [...] This note was completed using a voice fishing tool technician oil well system. Every effort was made to ensure accuracy. However, inadvertent computerized fishing tool technician oil well errors may be present. * Marjorie Curiel [...] amlodipine 5 mg daily MARJORIE CURIEL MD,PhD. [facility] NEPHROLOGY [facility] ANY QUESTIONS FEEL FREE TO CALL: 1. OFFICE [phone] 2. ANSWERING SERVICE: [phone] * Marjorie Curiel MD - 11/08/2024 10:50 [...] 150 mL/hr, Last Rate: 150 mL/hr (11/07/24 2506) Nutrition: Dietary Orders (From admission, onward) Start [...] Ringer's at 150 mL/hr MARJORIE CURIEL MD,PhD. [facility] NEPHROLOGY [facility] ANY QUESTIONS FEEL FREE TO CALL: 1. OFFICE [phone] 2. ANSWERING SERVICE: [phone] * Georgette Morris, PREHEMMER-[facility] - 11/08/2024 8:30 AM EST Images [...] such as enterovirus or drug rash from [facility] Seizure Neurology following Rhabdomyolysis RAKESH Nephrology following [...] Value Units Date/Time Resp Pathogens Panel/SARS CoV-2 [[id number]] Collected: 11/05/24 0156 Specimen: Nasopharynx Updated: 11/05/24 [...] 2 Not Detected Mrsa Pcr nasal swab [[id number]] Collected: 11/05/24 0156 Specimen: Nasal Updated: 11/05/24 0340 Mrsa PCR Negative Urine culture [[id number]] Collected: 11/04/24 225 Specimen: Urine, Clean Catch Midstream Updated: 11/06/24 1422 Culture 10,000 to 50,000 ORGANISMS/mL NORMAL URO GENITAL RAYMOND SARS/FLU A+B/RSV by NAAT/Molecular (M4RT Collection Tube) [[id number]] Collected: 11/04/24 191 Specimen: Nasopharynx Updated: 11/04/242005 FLU A PCR Negative FLU B PCR Negative RSV by PCR Negative SARS CoV 2 BY PCR Not Detected Blood culture [[id number]] Collected: 11/04/24 181 Specimen: Blood Updated: 11/07/242235 Culture NO GROWTH 3 DAYS Blood culture [[id number]] Collected: 11/04/24 1715 Specimen: Blood Updated: 11/07/242237 [...] From 7AM-7PM: Our team prefers to use [employer] Elements acquired by [employer] for communication. From 7PM-7AM: Please call for [...] rash.Once stabilized was transferred to floor under [facility] as primary on 11/07/2024. 1. Breakthrough [...] Value Units Date/Time Resp Pathogens Panel/SARS CoV-2 [[id number]] Collected: 11/05/24155 Specimen: Nasopharynx Updated: 11/05/24 0315 [...] 2 Not Detected Mrsa Pcr nasal swab [[id number]] Collected: 11/05/24 015 Specimen: Nasal Updated: 11/05/24 0340 Mrsa PCR Negative Urine culture [[id number]] Collected: 11/04/242256 Specimen: Urine, Clean Catch Midstream Updated: 11/06/24 1422 Culture 10,000 to 50,000 ORGANISMS/mL NORMAL URO GENITAL RAYMOND SARS/FLU A+B/RSV by NAAT/Molecular (M4RT Collection Tube) [[id number]] Collected: 11/04/24 191 Specimen: Nasopharynx Updated: 11/04/242005 FLU A PCR Negative FLU B PCR Negative RSV by PCR Negative SARS CoV 2 BY PCR Not Detected Blood culture [[id number]] Collected: 11/04/24 181 Specimen: Blood Updated: 11/07/24 223 Culture NO GROWTH 3 DAYS Blood culture [[id number]] Collected: 11/04/24 1715 Specimen: Blood Updated: 11/07/242237 [...] This note was completed using a voice fishing tool technician oil well system. Every effort was made to ensure accuracy. However, inadvertent computerized fishing tool technician oil well errors may be present. * Avni Ríos, DO - 11/07/2024 10:43 PM EST Images from the original note were not included. Division of Infectious Diseases - Progress Note Academic Team Please contact us via [employer] chat. After hours, call [phone] Patient name: Yolanda Ma Back Patient Today's [...] stool present in her colon in the [place] [facility] and the stool was not sent [...] or primary neurological disorders. Ray Mina MD Room Designer Neurology/Neurophysiology [facility] I have personally reviewed the above studies . Cultures: Microbiology Results Procedure Component Value Units Date/Time Resp Pathogens Panel/SARS CoV-2 [[id number]] Collected: 11/05/24 015 Specimen: Nasopharynx Updated: 11/05/24 [...] 2 Not Detected Mrsa Pcr nasal swab [[id number]] Collected: 11/05/24 0156 Specimen: Nasal Updated: 11/05/24 0340 Mrsa PCR Negative Urine culture [[id number]] Collected: 11/04/24 2257 Specimen: Urine, Clean Catch Midstream Updated: 11/06/24 1422 Culture 10,000 to 50,000 ORGANISMS/mL NORMAL URO GENITAL RAYMOND SARS/FLU A+B/RSV by NAAT/Molecular (M4RT Collection Tube) [[id number]] Collected: 11/04/24 191 Specimen: Nasopharynx Updated: 11/04/242005 FLU A PCR Negative FLU B PCR Negative RSV by PCR Negative SARS CoV 2 BY PCR Not Detected Blood culture [[id number]] Collected: 11/04/24 181 Specimen: Blood Updated: 11/07/242235 Culture NO GROWTH 3 DAYS Blood culture [[id number]] Collected: 11/04/24 1715 Specimen: Blood Updated: 11/07/242237 [...] progress note was completed using a voice fishing tool technician oil well system. Every effort was made to ensure accuracy; however, inadvertent computerized fishing tool technician oil well errors may be present. Thank you for allowing us to participate in the care of this patient. Avni Ríos DO [place] [facility] Pager: From 7AM-7PM: From 7AM-7PM: Please use [employer] for communication. From 7PM-7AM: Please call for our answering service. * Brigida Rae MD - 11/07/2024 2:57 PM EST Images from the original note were not included. [facility] Neurology General Neurology Primary Progress Note Primary Neurology service: [phone] Chief Complaint: Interval History: Yolanda Villanueva is [...] endorsing that the patient has been more menednez, tearful and irritable after starting Keppra, she [...] off Brigida Rae MD PGY-4, Neurology Resident [facility] Staffed with: (Dr. Skelton) This patient is being followed by the Neurology Resident service. Contact attending directly during these hours: Thursday to 7:30-8:30 A.M. to Thursday 12-1:00 p.m. Primary Neurology service: [phone] Consult neurology service: [phone] Resident Stroke Service: [phone] If the patient belongs to the Stroke [...] per excellent resident note. Robin Skelton MD Room Designer of Neurology [facility] 11/07/24 * VIJAYA Kearns - 11/07/2024 1:26 PM EST Critical Care Interim Progress Note: Yolanda Summer Back 1:27 PM Patient has orders placed to be transferred out of the ICU. Sign-out has been called to Dr. Gutierrez with [facility]. Today is the 2nd call to [facility] for transfer. [facility] to assume care of patient on 11/08/2024 if patient remains in ICU with orders to transfer. Critical Care will sign off at time of transfer out ofICU. Thank you. VIJAYA Kearns Department of Anesthesiology and Critical Care Medicine 11/07/24 1:28 PM Please contact me via [employer]-Touch VIJAYA Kearns 11/07/24 4007 * Kilo Yang MD - 11/07/2024 11:29 [...] Dr. Yang and bedside RN. Christopher Ewry, PREHEMMER-RN RADIOLOGY Subjective A 12 point review of systems was obtained was grossly negative. The patient is tearful and wants togo home. At the time of the exam, she denied complaints of chest pain, shortness for breath, nausea, vomiting, abdominal pain, or diarrhea. She does have a nonproductive cough. Hospital Problem: Principal Problem: Seizure ([facility]) OBJECTIVE Vital Signs Temp: [36.6 C [...] Value Units Date/Time Resp Pathogens Panel/SARS CoV-2 [[id number]] Collected: 11/05/24155 Specimen: Nasopharynx Updated: 11/05/24314 Specimen [...] 2 Not Detected Mrsa Pcr nasal swab [[id number]] Collected: 11/05/24 0156 Specimen: Nasal Updated: 11/05/24 0340 Mrsa PCR Negative Urine culture [[id number]] Collected: 11/04/242256 Specimen: Urine, Clean Catch Midstream Updated: 11/06/24 142 Culture 10,000 to 50,000 ORGANISMS/mL NORMAL URO GENITAL RAYMOND SARS/FLU A+B/RSV by NAAT/Molecular (M4RT Collection Tube) [[id number]] Collected: 11/04/241912 Specimen: Nasopharynx Updated: 11/04/242005 FLU A PCR Negative FLU B PCR Negative RSV by PCR Negative SARS CoV 2 BY PCR Not Detected Blood culture [[id number]] Collected: 11/04/24 181 Specimen: Blood Updated: 11/06/242235 Culture NO GROWTH 2 DAYS Blood culture [[id number]] Collected: 11/04/24 171 Specimen: Blood Updated: 11/06/242237 [...] Value Units Date/Time Resp Pathogens Panel/SARS CoV-2 [[id number]] Collected: 11/05/24 015 Specimen: Nasopharynx Updated: 11/05/24 [...] 2 Not Detected Mrsa Pcr nasal swab [[id number]] Collected: 11/05/24 0156 Specimen: Nasal Updated: 11/05/24 0340 Mrsa PCR Negative Urine culture [[id number]] Collected: 11/04/24 225 Specimen: Urine, Clean Catch Midstream Updated: 11/06/24 1422 Culture 10,000 to 50,000 ORGANISMS/mL NORMAL URO GENITAL RAYMOND SARS/FLU A+B/RSV by NAAT/Molecular (M4RT Collection Tube) [[id number]] Collected: 11/04/24 191 Specimen: Nasopharynx Updated: 11/04/242005 FLU A PCR Negative FLU B PCR Negative RSV by PCR Negative SARS CoV 2 BY PCR Not Detected Blood culture [[id number]] Collected: 11/04/24 181 Specimen: Blood Updated: 11/06/242235 Culture NO GROWTH 2 DAYS Blood culture [[id number]] Collected: 11/04/24 171 Specimen: Blood Updated: 11/06/242237 [...] 75 mg, oral, Daily with breakfast Renanadolfo BlancLINDSAY-RN RADIOLOGY 11/07/24 1231 Attestation signed by 1:04 PM [...] TIBC , FERRITIN Please contact me at [phone] (Office) or [phone] (Answering service) with any questions. Please feel free to contact me through [employer] chat during the daytime hours, if no response after 5 minutes then call the answering service. Nestor Ramsey MD [facility] This note was created with the assistance [...] Note Academic Team Please contact us via [employer] chat. After hours, call [phone] Patient name: Yolanda Ma Back Patient Today's [...] stool present in her colon in the [place] ED and the stool was not sent [...] or primary neurological disorders. Ray Mina MD Room Designer Neurology/Neurophysiology [facility] X-ray chest 1 view Result Date: [...] Value Units Date/Time Resp Pathogens Panel/SARS CoV-2 [[id number]] Collected: 11/05/24 0156 Specimen: Nasopharynx Updated: 11/05/24 [...] 2 Not Detected Mrsa Pcr nasal swab [[id number]] Collected: 11/05/24 0156 Specimen: Nasal Updated: 11/05/24 0340 Mrsa PCR Negative Urine culture [[id number]] Collected: 11/04/24 2257 Specimen: Urine, Clean Catch Midstream Updated: 11/06/24 0816 Culture <10,000 ORGANISMS/ML NORMAL URO GENITAL RAYMOND SARS/FLU A+B/RSV by NAAT/Molecular (M4RT Collection Tube) [[id number]] Collected: 11/04/24 1913 Specimen: Nasopharynx Updated: 11/04/242005 FLU A PCR Negative FLU B PCR Negative RSV by PCR Negative SARS CoV 2 BY PCR Not Detected Blood culture [[id number]] Collected: 11/04/24 1812 Specimen: Blood Updated: 11/05/24 2237 Culture NO GROWTH 1 DAY Blood culture [[id number]] Collected: 11/04/24 1715 Specimen: Blood Updated: 11/05/24 [...] progress note was completed using a voice fishing tool technician oil well system. Every effort was made to ensure accuracy; however, inadvertent computerized fishing tool technician oil well errors may be present. Thank you for allowing us to participate in the care of this patient. - DEANGELO MERRILL MD 11/06/24 11:56 AM [facility] Infectious Diseases Please contact us via [employer] chat * Marie Singh, - 11/06/2024 8:02 AM EST [facility] Progress Note Patient - Yolanda Summer Back Age - 24 y.o. - 2000 ASSESSMENT Severe sepsis with multiorgan dysfunction noted. Source not entirely clear at this time. Note concern for potential SHELL MOLD BONDER infection/meningitis. Altered mental status, possibly toxic/metabolic in [...] dose precedex due to intermittent agitation Appreciate media consultant outside sales care and recs. GI studies pending. Note [...] this process. ? CPK elevation from [facility]- case report data On Decadron for possible [...] Radiology None new Dr. Marie Singh DO. [facility] Pulmonary & Critical Care Office: [phone] * Moraima Lin PharmD - 11/05/2024 11:05 AM EST Pharmacokinetic Consult - Vancomycin Dosing Yolanda Villanueva is a 24 y.o. female for whom pharmacy has been consulted for vancomycin dosing for meningitis/SHELL MOLD BONDER infection. Today is day 2 of vancomycin [...] Value Units Date/Time Resp Pathogens Panel/SARS CoV-2 [[id number]] Collected: 11/05/24 0156 Specimen: Nasopharynx Updated: 11/05/24 [...] 2 Not Detected Mrsa Pcr nasal swab [[id number]] Collected: 11/05/24 0156 Specimen: Nasal Updated: 11/05/24 0340 Mrsa PCR Negative Urine culture [[id number]] Resulted: 11/04/24 230 Specimen: Urine Updated: 11/05/24 0216 SARS/FLU A+B/RSV by NAAT/Molecular (M4RT Collection Tube) [[id number]] Collected: 11/04/24 191 Specimen: Nasopharynx Updated: 11/04/242005 FLU A PCR Negative FLU B PCR Negative RSV by PCR Negative SARS CoV 2 BY PCR Not Detected Blood culture [[id number]] Collected: 11/04/24 1812 Specimen: Blood Updated: 11/05/24 1036 Culture NO GROWTH <24 HRS Blood culture [[id number]] Collected: 11/04/24 1715 Specimen: Blood Updated: 11/05/24 [...] Units 11/05/24 0254 VANCOMYCIN ug/mL 28.4 Indication: meningitis/SHELL MOLD BONDER infection Goal Vancomycin Range: Trough 15-20 mcg/mL [...] consulting. Fiordaliza Lin PharmD * Kati Ariza [facility] - 11/05/2024 2:19 AM EST Pharmacokinetic Consult - Vancomycin Dosing Yolanda Villanueva is a 24 y.o. female for whom pharmacy has been consulted for vancomycin dosing for meningitis/SHELL MOLD BONDER infection. Today is day 1 of vancomycin [...] Procedure Component Value Units Date/Time Urine culture [[id number]] Resulted: 11/04/24 2305 Specimen: Urine Updated: 11/05/24215 SARS/FLU A+B/RSV by NAAT/Molecular (M4RT Collection Tube) [[id number]] Collected: 11/04/241912 Specimen: Nasopharynx Updated: 11/04/242005 FLU A PCR Negative FLU B PCR Negative RSV by PCR Negative SARS CoV 2 BY PCR Not Detected Blood culture [[id number]] Collected: 11/04/241758 Specimen: Blood, Peripheral Draw Updated: 11/04/241828 Blood culture [[id number]] Collected: 11/04/241758 Specimen: Blood, Peripheral Draw Updated: [...] 11/05/24 0213 Recent Vancomycin Serum Concentrations: Indication: meningitis/SHELL MOLD BONDER infection Goal Vancomycin Range: Trough 15-20 mcg/mL [...] Ariza RPH - 11/05/2024 1:32 AM EST [facility] Department of Pharmacy Pharmacy-Physician Communication Due to a drug shortage, metronidazole the dose interval was adjusted to q12h per temporary [facility] approval. If you need additional information, please contact a pharmacist at [phone] . Thank you, documented in this [facility]02-[facility] Consult note* Marjorie Curiel MD [...] in bed. She was transferred to the [facility] for ongoing care. Initial laboratories on November 04 sodium 130 potassium 2.8 chloride 99 total CO2 19 BUN 27 creatinine 1.8 calcium 8.2 total protein 8.2 albumin 4.5 AST 356 ALT 122 anion gap was 38 magnesium 2.8. CK total was 26,584. The CK has increased to 32,131. Myoglobin has decreased from 8318-9014. The patient had 6.6 L of urine [...] 04/10/2023 Performed by Joey Stacy MD at [facility] N/A 04/10/2023 Performed by Joey Stacy MD at [facility] * No surgery found * Allergies: [...] hyperkalemic, acidotic or oliguric. MARJORIE CURIEL MD,PhD. [facility] NEPHROLOGY CONSULTANTS OF [facility] ANY QUESTIONS FEEL FREE TO CALL: 1. OFFICE [phone] 2. ANSWERING SERVICE: [phone] * Deangelo Merrill MD - 11/05/2024 7:29 PM ESTAssociated Order(s): IP CONSULT TO INFECTIOUS DISEASES Images from the original note were not included. Infectious Diseases Academic Team - Initial Consult Note - Please contact us via [employer] chat. After hours, call [phone] Patient name: Yolanda Ma Back Patient Today's [...] of obesity with a BMI of 34 DE depression, gastritis, seizure disorder - she startedhaving seizures about a year ago. No clear etiology. Recently she had some changes on her antiepileptics and she developed a rash after Keppra was added. She presented to [facility] in [place] on November 04 yesterday with seizures. She [...] Eczema 2009 GERD (gastroesophageal reflux disease) Seizures ([facility]) Visual impairment 2004 Past Surgical History: Past Surgical History: Procedure Laterality Date COLONOSCOPY N/A 04/10/2023 Performed by Joey Stacy MD at [facility] ESOPHAGOGASTRODUODENOSCOPY N/A 04/10/2023 Performed by Joey Stacy MD at [facility] Medications: ARIPiprazole, 2 mg, oral, Daily [...] or primary neurological disorders. Ray Mina MD Room Designer Neurology/Neurophysiology [place] [facility] X-ray chest 1 view Result Date: [...] Value Units Date/Time Resp Pathogens Panel/SARS CoV-2 [[id number]] Collected: 11/05/24 015 Specimen: Nasopharynx Updated: 02/01/25 [...] 2 Not Detected Mrsa Pcr nasal swab [[id number]] Collected: 11/05/24 0156 Specimen: Nasal Updated: 11/05/24 0340 Mrsa PCR Negative Urine culture [[id number]] Resulted: 11/04/24 230 Specimen: Urine Updated: 11/05/24 0216 SARS/FLU A+B/RSV by NAAT/Molecular (M4RT Collection Tube) [[id number]] Collected: 11/04/24 191 Specimen: Nasopharynx Updated: 11/04/24 2006 FLU A PCR Negative FLU B PCR Negative RSV by PCR Negative SARS CoV 2 BY PCR Not Detected Blood culture [[id number]] Collected: 11/04/24 1812 Specimen: Blood Updated: 11/05/24 1036 Culture NO GROWTH <24 HRS Blood culture [[id number]] Collected: 11/04/24 1715 Specimen: Blood Updated: 11/05/24 1038 Culture NO GROWTH <24 HRS Thank you for allowing us to participate in the care of this patient. - DEANGELO MERRILL MD 11/05/24 7:29 PM [facility] Infectious Diseases Please contact us via [employer] chat * Nathalie Mooney MD - 11/05/2024 2:48 AM ESTAssociated Order(s): IP CONSULT TO NEUROLOGY Images from the original note were not included. [facility] Neurology General Neurology Consultation Note Consult Neurology Service: [phone] Primary Team: critical care Chief Complaint and [...] as colitis/enteritis. Patient was then transferred to [facility] for further management. On initial examination, [...] disease) 02/06/2023 Visual impairment 02/06/2023 Seizure disorder ([facility]) 01/11/2024 Seizure-like activity ([facility]) 09/12/2024 Focal epilepsy ([facility]) 09/20/2024 Resolved Ambulatory Problems Diagnosis Date Noted No Resolved Ambulatory Problems Past Medical History: Diagnosis Date Seizures ([facility]) Family History: Family History Problem Relation Age [...] IVPB, 3,000 mg, intravenous, PRN, Richard Prielipp, PREHEMMER-RN RADIOLOGY cefEPime (MAXIPIME) IVPB 2000 mg/50 mL in dextrose 5% duplex (40 mg/mL premix), 2,000 mg, intravenous, Q12H, Richard Prielipp, PREHEMMER-RN RADIOLOGY dexAMETHasone sodium phos (PF) (DECADRON) injection 10 mg, 10 mg, intravenous, Q6H, Richard Prielipp, PREHEMMER-RN RADIOLOGY, 10 mg at 11/05/24 0148 dextrose (GLUTOSE) 40 % gel 15 g, 15 g, oral, PRN, Richard Prielipp, PREHEMMER-RN RADIOLOGY dextrose 5 % (D5W) infusion, 100 mL/hr, intravenous, Continuous PRN, Richard Prielipp, PREHEMMER-RN RADIOLOGY dextrose 50 % in water (D50W) 50% solution 25 mL, 25 mL, intravenous, PRN, Richard Prielipp, PREHEMMER-RN RADIOLOGY glucagon HCL injection 1 mg, 1 mg, intramuscular, PRN, Richard Prielipp, PREHEMMER-RN RADIOLOGY lactated ringers infusion, 125 mL/hr, intravenous, Continuous, Richard Prielipp, PREHEMMER-RN RADIOLOGY, Last Rate: 100 mL/hr at 11/05/24 0141, 100 mL/hr at 11/05/24 0141 levETIRAcetam (KEPPRA) IVPB 1000 mg/100 mL in iso-osmotic sodium chloride (10 mg/mL premix), 1,000 mg, intravenous, Q12H, Richard Prielipp, PREHEMMER-RN RADIOLOGY magnesium sulfate IVPB 2000 mg/50 mL in iso-osmotic water (40 mg/mL premix), 2,000 mg, intravenous,PRN OR magnesium sulfate IVPB 4000 mg/100 mL in iso- osmotic water (40 mg/mL premix), 4,000 mg, intravenous, PRN, Richard Prielipp, PREHEMMER-RN RADIOLOGY [START ON 11/06/2024] metroNIDAZOLE (FLAGYL) IVPB 500 mg/100 mL in iso-osmotic sodium chloride (5 mg/mL premix), 500 mg, intravenous, Q12H, Richard Prielipp, PREHEMMER-RN RADIOLOGY potassium chloride (K-TAB,KLOR-CON) CR tablet 20-50 mEq, 20-50 mEq, oral, PRN OR potassium chloride (KAYCIEL) 20 mEq/15 mL solution 20-50 mEq, 20-50 mEq, oral, PRN, Richard Prielipp, PREHEMMER-RN RADIOLOGY potassium chloride IVPB 10 mEq/50 mL in water (0.2 mEq/mL premix), 10 mEq, intravenous, PRN OR potassium chloride IVPB 10 mEq/100 mL in water (0.1 mEq/mL premix), 10 mEq, intravenous, PRN, Richard Prielipp, PREHEMMER-RN RADIOLOGY sodium phosphate 20 mmol in sodium chloride 0.9 % 250 mL IVPB, 20 mmol, intravenous, PRN OR sodium phosphate 20 mmol in sodium chloride 0.9 % 100 mL IVPB, 20 mmol, intravenous, PRN OR sod phos di, mono-K phos mono (K-PHOS NEUTRAL) 250 mg tablet 2 tablet, 2 tablet, oral, PRN, Richard Prielipp, PREHEMMER-RN RADIOLOGY sodium chloride 0.9 % infusion, 10 mL/hr, intravenous, Continuous PRN, Richard Prielipp, PREHEMMER-RN RADIOLOGY sodium chloride 0.9 % infusion, 10 mL/hr, intravenous, Continuous PRN, Richard Prielipp, PREHEMMER-RN RADIOLOGY sodium chloride 0.9 % infusion, 10 mL/hr, intravenous, Continuous PRN, Richard Prielipp, PREHEMMER-RN RADIOLOGY vancomycin (VANCOCIN) IVPB Dosed by Levels, , intravenous, Dosed by Levels, Richard Prielipp, PREHEMMER-RN RADIOLOGY Allergies: No Known Allergies Complete Review of [...] Urine glucose KRISTA Negative Negative^Negative mg/dL Ketones KRITSA Negative Negative^Negative mg/dL Urobilinogen KRISTA 0.2 <1.1 [...] Signed by Nathalie Mooney MD Neurology Resident, [facility] Please contact via secure chat Staffed with: Dr. Skelton This patient is being followed by the Neurology Resident service. Contact attending directly during these hours: Thursday to 7:30-8:30 A.M. to Thursday 12-1:00 p.m. Primary Neurology service: [phone] Consult neurology service: [phone] Resident Stroke Service: [phone] If the patient belongs to the Stroke [...] per excellent resident note. Robin Skelton MD Room Designer of Neurology [facility] 11/05/24 documented in this encounterMer[facility]02-01-2025 History and physical note* Richard Ernandez APRN-RN RADIOLOGY - 11/05/2024 1:38 AM EST CRITICAL CARE [...] Decadron. [facility]. Keppra was resumed after discussion with the Neurology team. She received 2 L normal saline bolus. She has now been transferred to [facility] for ongoing management. She is currently [...] Eczema 2009 GERD (gastroesophageal reflux disease) Seizures ([facility]) Visual impairment 2004 Past Surgical History: Procedure Laterality Date COLONOSCOPY N/A 04/10/2023 Performed by Joey Stacy MD at [facility] ESOPHAGOGASTRODUODENOSCOPY N/A 04/10/2023 Performed by Joey Stacy MD at [facility] Review of Systems - unable to [...] Procedure Component Value Units Date/Time Urine culture [[id number]] Resulted: 11/04/242304 Specimen: Urine Updated: 11/04/242305 SARS/FLU A+B/RSV by NAAT/Molecular (M4RT Collection Tube) [[id number]] Collected: 11/04/241912 Specimen: Nasopharynx Updated: 11/04/242005 FLU A PCR Negative FLU B PCR Negative RSV by PCR Negative SARS CoV 2 BY PCR Not Detected Blood culture [[id number]] Collected: 11/04/241758 Specimen: Blood, Peripheral Draw Updated: 11/04/241828 Blood culture [[id number]] Collected: 11/04/241758 Specimen: Blood, Peripheral Draw Updated: 11/04/241828 ASSESSMENT: Severe sepsis with multiorgan dysfunction noted. Significant leukocytosis and elevated procalcitonin noted. Source not entirely clear at this time. Note concern for potential SHELL MOLD BONDER infection/meningitis. Chest x-ray without acute process. UA does not appear grossly infected. CT abdomen and pelvis with potential colitis. Altered mental status, possibly toxic/metabolic in etiology vs seizure related / post ictal. Lumbarpuncture attempted unsuccessfully at the outside hospital. Will need further workup for potential SHELL MOLD BONDER infection. Seizure disorder with breakthrough seizures and [...] titration of care by a Critical Care Bench Assembler Operator. Failure to do so may result in further organ system failure, imminent deterioration, or . VIJAYA Hung 11/05/24 0209 Cosigned by Esau Vincent MD at 11/05/2024 2:33 AM EST documented in this encounterMayo Memorial HospitalDynadec [id number] Miscellaneous Notes* Telephone Encounter - Cherry Llamas - 11/02/2024 9:32 AM EST Medication Name:levETIRAcetam (KEPPRA) 750 mg tablet Frequency/Dose: 750mg twice daily Side Effects: Patient stated that they have a skin rash on arms and torso and face When did the side effects begin:1 1/2 weeks ago Last dose: 11/02/24 AM dose Received call from: Patient Callback number:[phone] * Telephone Encounter - Megha Bragg MD [...] increased the dose to twice a day. Pasteurizing Machine Operator informed patient would send message to [...] 11/02/2024 9:32 AM EST Zabrina STUBBS RN [facility] [phone] (ER direct line) has requested a call [...] to call office back. documented in this encounterMayo Memorial HospitalLoveLab.com INC.01-29-2025 Telephone encounter Note* Telephone Encounter - Cherry Llamas - 11/02/2024 9:32 AM EST Medication Name:levETIRAcetam (KEPPRA) 750 mg tablet Frequency/Dose: 750mg twice daily Side Effects: Patient stated that they have a skin rash on arms and torso and face When did the side effects begin:1 1/2 weeks ago Last dose: 11/02/24 AM dose Received call from: Patient Callback number:[phone] [employer]01-29-2025 Telephone encounter Note* Telephone Encounter - Megha [...] me know about further conc erns. Thanks [employer] Work Phone: 1(912) 279-521901-29-2025 Telephone encounter Note* Telephone Encounter - Soco Granados RN - 11/02/2024 9:32 AM EST Called and spoke to patient and let her know recommendations/ information from Dr. Bragg about thelamictal and her rash. She stated that she had been taking the Lamictal for a while now and just recently increased the dose to twice a day. Pasteurizing Machine Operator informed patient would send message to Dr. Bragg about the Lamictal and see what he says. Did also inform her that he was out of the office but was answering things. She voiced understanding. Also told her about going to the ED to have the rash be evaluated and make sure it is not [place]-Gab syndrome. She voiced understanding. [facility] [id number] Telephone encounter Note* Telephone Encounter - Megha Bragg MD - 11/02/2024 9:32 AM EST Yes that is correct, I want her to stop taking the Lamictal and just continue the Keppra for seizure prophylaxis. The risk of dermatological complications such as [place]-Gab syndrom is a dose dependent phenomenon associated with lamotrigine/Lamictal usage. Typically the rash develops as the dose of Lamictal is increased. [facility] [place] [id number] Telephone encounter Note* Telephone Encounter - Cherry Llamas - 11/02/2024 9:32 AM EST Zabrina STUBBS RN [facility] [phone] (ER direct line) has requested a call back. Caller stated that patient is currently at ER and department has a few questions to ask Dr. Bragg. Provider'spager does not seem to be working. [facility] [id number] Telephone encounter Note* Telephone Encounter - Soco [...] message for patient to call office back. -[facility] [employer]10-08-2024 History of Present illness Narrative* Megha Bragg MD - 07/12/2024 4:00 PM EDT Images from the original note were not included. [address] [place] [address] Patient: Yolanda Villanueva Date of : 2000 [...] to display PTSD: No data to display [place]: No data to display JEVON-10: No data [...] Eczema 2009 GERD (gastroesophageal reflux disease) Seizures ([facility]) Visual impairment 2004 Family History Problem Relation Age of Onset Kidney disease Father Miscarriages / Stillbirths Sister Lung cancer Maternal Grandmother Throat cancer Paternal great-grandmother Past Surgical History: Procedure Laterality Date COLONOSCOPY N/A 04/10/2023 Performed by Joey Stacy MD at [facility] ESOPHAGOGASTRODUODENOSCOPY N/A 04/10/2023 Performed by Joey Stacy MD at [facility] Current Outpatient Medications Medication Sig Dispense [...] touch is bilaterally symmetric and normal. Coordination: Egonig-hyav-sqrjwo and lxoo-oyqa-usak tests are normal. No dysdiadochokinesia on rapid [...] all orders for this visit: Breakthrough seizure ([facility]) - Speech Language Specialist Monitoring for Epilepsy / LTME 5 Day; Future Gastroesophageal reflux disease, unspecified whether esophagitis present Seizure disorder ([facility]) - Fpc Monitoring for Epilepsy / LTME 5 Day; [...] (LaMICtal) 100 mg tablet Other Relevant Orders Fpc Monitoring for Epilepsy / LTME 5 Day Musculoskeletal and Integument Eczema Other Anxiety Depression Follow-up: 2-3 months Megha Bragg MD Vascular Neurologist [facility] Neurology ([facility]) I have personally participated in the care of this patient. I have reviewed all pertinent clinical information, including history, physical exam, investigation results and plan. I spent 35 minutes caring for this patient, and more than 50% of that time was spent on counseling the patient/school bus aide/care team and coordinating care. Important Notice: This note was created with the assistance of a speech recognition program. While intending to generate a timely document that accurately reflects the content of the encounter, no guarantee can be provided that every grammatical or spelling mistake has been or will be identified or corrected. Thank you for your understanding. documented in this encounterMercy [facility] Center09-27-2024 History of Present illness Narrative* Kalin Mccann RN - 07/01/2024 6:46 AM EDT Pt currently in [facility] ED. Call requesting pt medical records received. Obtained signed copy of release of medical records form. Requested records faxed to [facility] ED. documented in this encounterMercy Health [facility] Center07-19-2024 Discharge summary Author Donavon rehman [facility] April 22, 2024 7:05amNote Date/TimeJuly 2023 6:[address] [address] Discharge Summary Signed Patient: Yolanda Villanueva MR#: [id number] : 2000 Acct:[id number] Age/Sex: 24 / F Adm Date: 4 Loc: 1S Room: 1D6396-[address]: Obie Harley MD Copies to: [...] Reportedly, patient presented to the ER in [place] after he drove her there. Shehas been [...] her tried to drive her to the [place] ER. When she realized he was taking her to the hospital, she jumped out of the car and jumpedinto a nearby pond since her can't swim. Her zqdnlk-hd-byj got a kayak and got her out [...] self or stop treatment, but to call [employer], 911 or come to the nearest emergency [...] Instructions: Important Contact Information You can call [facility] Inpatient Behavioral Health at [phone] any timeday or night if you have emergent questions or question regarding discharge instructions. If at anytime you are feeling an increase inyour psychiatric symptoms, call your physician or behavioral healthcare provider. If any time you have thoughts of harming yourself or others contact one of the following: Call 8 (available 27/04) Crisis Text Line (available 27/04) text 4HOPE to [phone] [facility] Hope Line (available 8 a.m. Midnight) call [phone] ([phone]) Instructions: Know your Meds Prescriptions: New venlafaxine [...] 24hr 37.5 mg PO DAILY [facility]] Ottoniel Arias MD [Primary Care Provider] - Exam Physical Exam Vital Signs: Temp Pulse Resp BP Pulse Ox O2 Del Method 98.6 F 87 16 136/85 98 Room Air 04/21/24 19:30 04/21/24 19:30 04/21/24 19:30 04/21/24 19:30 04/21/24 19:30 04/21/24 19:30 Documented By: Donavon Montalvo MD 4 0657 Signed By: <Electronically signed by Donavon Montalvo MD> 04/22/24 0705 [facility] Work Phone: 1(503) 826-534207-18-2024 Progress note Author Donavon rehman [facility] April 21, 2024 7:17amNote Date/TimeJuly 2023 7:[place] [address] Psychiatry Progress Note Signed Patient: Yolanda Villanueva MR#: [id number] : 2000 Acct:[id number] Age/Sex: 24 / F Adm Date: 4 Loc: Room: [address] [place] [address] Type : ADM IN Attending Dr: Obie aHrley MD Copies to: ~ Date of Service: [...] the unit milieu. She hasbeen working with piano case maker on her aftercare she agreed to continue [...] <Electronically signed by Donavon Montalvo MD> 04/21/2417 [facility] Work Phone: 1(964) 983-277107-17-2024 Progress note Author Donavon rehman [facility] April 20, 2024 8:25amNote Date/TimeJuly 2023 8:24[place] [address] Psychiatry Progress Note Signed Patient: Yolanda Villanueva MR#: [id number] : 2000 Acct:[id number] Age/Sex: 24 / F Adm Date: 4 Loc: Room: [address] [place] [address] Type : ADM IN Attending Dr: Obie [...] signed by Donavon Montalvo MD> 04/20/24 0825 [facility] Work Phone: 1(558) 666-593107-16-2024 Progress note Author Donavon rehman [facility] April 19, 2024 12:03pmNote Date/TimeJuly 2023 10:24[place], [place] [address] Psychiatry Progress Note Signed Patient: Yolanda Villanueva MR#: [id number] : 2000 Acct:[id number] Age/Sex: 24 / F Adm Date: 4 Loc: Room: [address] [place] [address] Type : ADM IN Attending Dr: Obie [...] signed by Donavon Montalvo MD> 04/19/24 1203 [facility] Work Phone: 1(264) 610-684807-15-2024 History and physical note Author Donavon rehman [facility] April 18, 2024 11:38amNote Date/TimeJuly 2023 10:35[place] [id number] Psychiatry H&P Signed Patient: Yolanda Villanueva MR#: [id number] : 2000 Acct:[id number] Age/Sex: 24 / F Adm Date: 4 Loc: 1S Room: 9D6860-9 Type: ADM IN Attending Dr: Obie Harley MD Copies to: MD Obie Oleary MD Josilyn M Clark, DO, RES Ottoniel Arias MD~ Date of Service: 04/18/2024 HPI History of Present Illness History of present illness: Ms. Villanueva is a 24 year old female who presents for inpatient treatment due to depression and suicidal ideation. Reportedly, patient presented to the ER in [place] after he drove her there. Shehas been [...] her tried to drive her to the [place] ER. When she realized he was taking her to the hospital, she jumped out of the car and jumpedinto a nearby pond since her can't swim. Her qvbdar-ui-rfe got a kayak and got her out [...] HI and [facility] Insight: Fair Judgment: [facility] Medical History (Updated 04/18/24 @ 10:34 [...] signed by Donavon Montalvo MD> 04/18/24 1138 [facility] Work Phone: 1(217) 159-298504-26-2024 History of Present illness Narrative* Megha Bragg MD - 01/29/2024 1:30 PM EDT Images from the original note were not included. [address] [place] [address] Patient: Yolanda Villanueva Date of : [...] to display PTSD: No data to display Mcs[place]own: No data to display JEVON-10: No data [...] Eczema 2009 GERD (gastroesophageal reflux disease) Seizures ([facility]) Visual impairment 2004 Family History Problem Relation Age of Onset Kidney disease Father Miscarriages / Stillbirths Sister Lung cancer Maternal Grandmother Throat cancer Paternal great-grandmother Past Surgical History: Procedure Laterality Date COLONOSCOPY N/A 04/10/2023 Performed by Joey Stacy MD at [facility] ESOPHAGOGASTRODUODENOSCOPY N/A 04/10/2023 Performed by Joey Stacy MD at [facility] Current Outpatient Medications Medication Sig Dispense [...] touch is bilaterally symmetric and normal. Coordination: Foahrw-uonq-kutfyn and rfps-fsxy-xfor tests are normal. No dysdiadochokinesia on rapid [...] all orders for this visit: Seizure disorder ([facility]) Witnessed seizure-like activity ([facility]) - Ambulatory referral to Neurology ([facility]) Anxiety [...] Follow-up: MD Megha Oates MD Vascular Neurologist [facility] Neurology # [phone]([facility]) I have personally participated in the care of this patient. I have reviewed all pertinent clinical information, including history, physical exam, investigation results and plan. 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 Important Notice: This note was created with the assistance of a speech recognition program. While intending to generate a timely document that accurately reflects the content of the encounter, no guarantee can be provided that every grammatical or spelling mistake has been or will be identified or corrected. Thank you for your understanding. documented in this encounterMayo Memorial HospitalDynadec [id number] Miscellaneous Notes* Telephone Encounter - Kathrin Howard - 12/28/2023 8:48 AM EDT Please ask the following questions to the new patient that you are schedulin. IS THIS DUE TO AN ACCIDENT? - No 2. IS THIS WORKER'S COMP? - No 3. WHAT INSURANCE? - [facility] CHOICE PLUS 4. HAVE YOU EVER BEEN SEEN BY A NEUROLOGIST BEFORE? IF YES, WHO AND WHEN? IS THIS A SECOND OPINION? - No 5. PATIENT IS SCHEDULED ON/WITH: - 01/29/2024 at 1:30pm with Dr. Bragg in [place]. Patient's requested [place] and requestedMD. documented in this encounterMercy Health [facility] Center03-25-2024 Telephone encounter Note* Telephone Encounter - Kathrin Howard - 12/28/2023 8:48 AM EDT Please ask the following questions to the new patient that you are schedulin. IS THIS DUE TO AN ACCIDENT? - No 2. IS THIS WORKER'S COMP? - No 3. WHAT INSURANCE? - [employer]ICE PLUS 4. HAVE YOU EVER BEEN SEEN BY A NEUROLOGIST BEFORE? IF YES, WHO AND WHEN? IS THIS A SECOND OPINION? - No 5. PATIENT IS SCHEDULED ON/WITH: - 01/29/2024 at 1:30pm with Dr. Bragg in [place]. Patient's requested [place] and requestedMD. [facility]02-20-2024 History of Present illness Narrative* Ottoniel Arias MD - 11/24/2023 7:45 AM EST Images from the original note were not included. [address] [place] [id number] Patient: Yolanda Villanueva Date of : 2000 [...] Visit via Real-time Synchronous Audiovisual Provider Location: [facility] [address] [place] [phone] Patient Location: Patient's home Video Visit Consent [...] that there are some limitations compared to dpfg-zh-eisr evaluations. The patient consented to the presence of additional virtual and/or in-person participants. We elected to proceed. OTTONIEL ARIAS MD Family Medicine Physician [employer] [facility] Medicine / [facility] 11/24/23 This note was completed with voice recognition software. The document was reviewed for errors however some may still be present. Please do not hesitate to contact/Epic msg the author to verify any questions/concerns. documented in this encounterSumma Health Wadsworth - Rittman Medical CenterSpace Monkey [facility]ly [facility] [id number] History of Present illness Narrative* Ottoniel Arias MD - 10/08/2023 7:45 AM EST Images from the original note were not included. [address] [place] [phone] Patient: Yolanda Villanueva Date of : 2000 [...] Visit via Real-time Synchronous Audiovisual Provider Location: [facility] [address] [place] [phone] Patient Location: Patient's home Video Visit Consent [...] that there are some limitations compared to [id number] evaluations. The patient consented to the presence of additional virtual and/or in-person participants. We elected to proceed. OTTONIEL ARIAS MD Family Medicine Physician [facility] / [facility] 10/08/23 This note was completed with voice recognition software. The document was reviewed for errors however some may still be present. Please do not hesitate to contact/Epic [facility] the author to verify any questions/concerns. documented in this encounterSelect [facility] [id number] Evaluation note* Encounter Date Diagnosis Assessment Notes [...] declines urinalysis, declines test, denies suspicion of Smart Education Other Evaluation note* Diagnosis Onset Date Resolution Status Anxiety acuteDepressionAvita Health System Work Phone: Evaluation note* Diagnosis Seizure (CMS-HCC)- Primary Other convulsions Seizure (CMS-HCC) Other convulsions Non-traumatic rhabdomyolysis Acute renal failure, unspecified acute renal failure type (CMS-HCC) Transaminitis Nonspecific elevation of levels of transaminase or lactic acid dehydrogenase (LDH) Eczema, unspecified type Influenza A H1N1 infection documented in this encounter [facility]* Diagnosis Generalized anxiety disorder documented in this encounter [facility]* Diagnosis Anxiety Anxiety state, unspecified documented in this encounter [facility] System[facility] note* Diagnosis Seizure disorder (CMS-HCC)- Primary Unspecified epilepsy without mention of intractable epilepsy documented in this encounter [facility]* Diagnosis Anxiety Anxiety state, unspecified documented in this encounter [facility] System[facility] note* Diagnosis Anxiety- Primary Anxiety state, unspecified Depression, unspecified depression type documented in this encounter [facility] System[facility]* Diagnosis Seizure (CMS-HCC)- Primary Other convulsions Muscle cramp Cramp of limb documented in this encounter [facility] System[facility] note* Diagnosis Breakthrough seizure (CMS-HCC)- Primary Gastroesophageal reflux disease, unspecified whether esophagitis present Seizure disorder (CMS-HCC) Unspecified epilepsy without mention of intractable epilepsy Eczema, unspecified type Anxiety Anxiety state, unspecified Depression, unspecified depression type documented in this encounter [facility] note* Diagnosis Seizure disorder (CMS-HCC)- Primary Unspecified epilepsy without mention of intractable epilepsy Witnessed seizure-like activity (CMS-HCC) Anxiety Anxiety state, unspecified Gastroesophageal reflux disease, unspecified whether esophagitis present Depression, unspecified depression type Eczema, unspecified type Seizure disorder (CMS-HCC) Unspecified epilepsy without mention of intractable epilepsy documented in this encounter [facility] System[facility] note* Diagnosis Seizure disorder (CMS-HCC)- Primary Unspecified epilepsy without mention of intractable epilepsy Focal epilepsy (CMS-HCC) Acute kidney injury (CMS-HCC) Eczema of right hand documented in this encounter [facility]* Diagnosis Seizure disorder (CMS-HCC)- Primary Unspecified epilepsy without mention of intractable epilepsy documented in this encounter [facility] note* Diagnosis Seizure disorder (CMS-HCC)- Primary Unspecified epilepsy without mention of intractable epilepsy Breakthrough seizure (CMS-HCC) documented in this encounter [facility] SystemEvaluation note* Diagnosis Cannabinoid hyperemesis syndrome- Primary Nausea and vomiting, unspecified vomiting type Cannabinoid hyperemesis syndrome Hypokalemia Hypopotassemia Dehydration RAKESH (acute kidney injury) Acute kidney failure, unspecified Seizures (HCC) Other convulsions documented in this encounter [facility]* Diagnosis Seizure disorder (CMS-HCC)- Primary Unspecified epilepsy without mention of intractable epilepsy Breakthrough seizure (CMS-HCC) Cannabinoid hyperemesis syndrome documented in this encounter [facility] SystemEvaluation note* Diagnosis Nausea and vomiting, unspecified vomiting type- Primary Hypokalemia Hypopotassemia RKAESH (acute kidney injury) Seizure disorder (CMS-HCC) Unspecified epilepsy without mention of intractable epilepsy Hospital discharge follow-up Other follow-up examination documented in this encounter [facility] SystemEvaluation note* Diagnosis Cannabis hyperemesis syndrome concurrent with and due to cannabis abuse (HCC)- Primary documented in this encounter [facility] note* Diagnosis Cannabis hyperemesis syndrome concurrent with and due to cannabis abuse (HCC)- Primary Positive test examination or test, positive result documented in this encounter [facility] noteNo assessment information available [facility] Work Phone: Evaluation note* Diagnosis Missed documented in this encounter [facility] general Narrative - Reported* Type Description Date Medical History Hiatal hernia Medical HistoryulcersSurgical Historydouble [id number] Smart Education Other Hospital Discharge instructionsNot on filedocumented in this encounterMercy Health [facility] CenterHospital Discharge instructions* Attachments The following attachments cannot be sent through Care Everywhere. * Substance Use Disorder (Barbadian) * Drug Use: Marijuana (Barbadian) documented in this encounterStafford HospitalInstructionsNot on file documented in this encounterProMercy Health St. [facility] SystemInstructionsNot on file documented in this encounterProMercy Health St. [facility] SystemInstructionsNot on file documented in this encounterProMercy Health St. Rita'S Medical Center SystemInstructionsNot on file documented in this encounterProMercy Health St. [facility] SystemInstructionsNot on file documented in this encounterProMercy Health St. [facility] SystemInstructionsNot on file documented in this encounterProMedica Health SystemInstructionsNot on file documented in this encounterProMercy Health St. [facility] SystemInstructionsNot on file documented in this encounterProMercy Health St. [facility] SystemInstructionsNot on file documented in this encounterProMercy Health St. [facility] SystemInstructions* Attachments The following attachments cannot be sent through Care Everywhere. * Acute kidney injury (Barbadian) documented in this encounterProMercy Health St. [facility] SystemInstructionsNot on file documented in this encounterProMercy Health St. [facility] SystemInstructionsNot on file documented in this encounterProMercy Health St. [facility] SystemInstructionsNot on file documented in this encounterProMercy Health St. [facility] SystemReason for referral (narrative)No reason for referral information availableKettering Health [facility]tr Work Phone: Reason for visit Narrative* Auth/CertSpecialty Diagnoses / ProceduresReferred By ContactReferred To Contact Diagnoses Sepsis Marie Singh, DO [address] [address] Phone: tel: fax: Referral IDStatusReasonStart DateExpiration DateVisits RequestedVisits [id number] [facility] System Summary Purpose Family History No Family [...] By ContactReferred To Contact Diagnoses Seizure disorder ([facility]) Procedures Sleep Deprived EEG Megha Bragg MD [address] [place] [address], [address] [place] [address] [facility] [address] [place] [address] Phone: [phone] Referral IDStatusReasonStart DateExpiration DateVisits RequestedVisits [id number] [id number] / ProceduresReferred By ContactReferred To Contact Diagnoses Breakthrough seizure ([facility]) Seizure disorder ([facility]) Procedures Fpc Monitoring for Epilepsy / LTME 5 Day Megha Bragg MD [address] [place] [address], [address] [place] [address] Referral IDStatusReasonStart DateExpiration DateVisits RequestedVisits [id number] Additional Source Comments INFORMATION SOURCE (unrecogn ized section and content) DATE CREATED AUTHOR 10/01/2022 [facility] DATE CREATED AUTHOR AUTHOR'S ORGANIZ ATION 01/21/2024 [facility] DATE CREATED AUTHOR AUTHOR'S ORGANIZ ATION 02/04/2024 [facility] DATE CREATED AUTHOR AUTHOR'S ORGANIZ ATION 11/14/2024 [facility] DATE CREATED AUTHOR AUTHOR'S ORGANIZ ATION 06/23/2025 [facility] DATE CREATED AUTHOR AUTHOR'S ORGANIZ ATION 07/09/2025 [facility] DATE CREATED AUTHOR AUTHOR'S ORGANIZ ATION 07/19/2025 [facility] DATE CREATED AUTHOR AUTHOR'S ORGANIZ ATION 07/28/2025 [facility] DATE CREATED AUTHOR AUTHOR'S ORGANIZ ATION 08/16/2025 [facility] REASON FOR VISIT (unrecogniz ed section and content) ReasonOnset DateCommentslevETIRAcetam (KEPPRA) 750 mg orpguq0011/02/2024Reason CommentsAnxietyReasonOnset DateCommentsMed Cjknwm42/06/2024ReasonOnset Date CommentsMed [id number] ProblemAnxiety medications not workingReasonOnset DateCommentsNew Patient Appt.4ReasonComments Follow-upPatient presents for follow up for seizuresReasonCommentsNew Patient Patient is here today as a new patient for Dx of Witnessed seizure-like activity SpecialtyDiagnoses / ProceduresReferred By ContactReferred To ContactNeurology Diagnoses Witnessed seizure-like activity ([facility]) Samantha Keyes, PREHEMMER-RN RADIOLOGY [address] [place] [address] Megha Bragg MD [address] [place] [address] [place] [address] Referral IDStatusReasonStart DateExpiration DateVisits RequestedVisits [id number] Review Specialty Services Required /[id number]-geIcwwksZsnfz DateCommentsTransition Of Care11/15/2024ReasonOnset DateComments12/20/24 MAHSA PLEVDNMQAL43/04/2025Reason CommentsSeizuresPatient is here today for follow up [...] unspecified vomiting type Triny Dumas MD [address] [facility] [address] [place] [address] Phone: tel: fax: [facility] [address] [place] [address] Referral IDStatusReasonStart DateExpiration DateVisits RequestedVisits [id number]-zwBnwedod is here today for follow up on [...] Ottoniel Arias MD [address] [place] [address] PCP - GeneralInternal Medicine01/06/24Team MemberRelationshipSpecialtyStart Date End Date Ottoniel Arias MD [address] [place] [address] PCP - GeneralInternal Medicine11/04/24Team MemberRelationshipSpecialtyStart Date End Date Ottoniel Arias MD [address] [place] [address] PCP - GeneralInternal Medicine04/10/23Team MemberRelationshipSpecialtyStart Date End Date Ottoniel Arias MD [address], [place] [address] PCP - GeneralInternal [facility]01/06/24Team MemberRelationshipSpecialtyStart Date End Date Ottoniel Arias MD [address], [place] [address] PCP - GeneralInternal [facility]11/04/24Team MemberRelationshipSpecialtyStart Date End Date Ottoniel Arias MD [address], [place] [address] [facility]01/06/24Team MemberRelationshipSpecialtyStart Date End Date Ottoniel Arias MD [address], [place] [address] PCP - [facility] Centernal [facility]04/10/23Team MemberRelationshipSpecialtyStart Date End Date Ottoniel Arias MD [address], [place] [address] PCP - GeneralInternal Medicine04/10/23Team MemberRelationshipSpecialtyStart Date End Date Ottoniel Arias MD [address], [place] [address] [facility]01/06/24Team MemberRelationshipSpecialtyStart Date End Date Ottoniel Arias MD [address], [place] [address] PCP - GeneralInternal Medicine01/06/24Team MemberRelationshipSpecialtyStart Date End Date Ottoniel Arias MD [address], [place] [address] PCP - GeneralInternal Medicine01/06/24Team MemberRelationshipSpecialtyStart Date End Date Ottoniel Arias MD [address], [place] [address] PCP - GeneralInternal Medicine11/04/24Team MemberRelationshipSpecialtyStart Date End Date Ottoniel Arias MD [address], [place] [address] PCP - GeneralH[facility] Medical Centernal Medicine11/04/24Team MemberRelationshipSpecialtyStart Date End Date Ottoniel Arias MD [address], [place] [address] PCP - GeneralInternal Medicine11/04/24Team MemberRelationshipSpecialtyStart Date End Date Ottoniel Arias MD [address], [place] [address] PCP - GeneralInternal Medicine11/04/24Team MemberRelationshipSpecialtyStart Date End Date Ottoniel Arias ND [address], [place] [address] PCP - [facility] Hospitally Medicine04/25/25Team MemberRelationshipSpecialtyStart DateEnd Date Ottoniel Arias MD [address], [place] [address] PCP - [facility]11/04/24Team MemberRelationshipSpecialtyStart Date End Date Ottoniel Arias MD [address], [place] [address] PCP - [facility]11/04/24Team MemberRelationshipSpecialtyStart Date End Date Ottoniel Arias ND [address], [place] [address] [facility]04/25/25Team MemberRelationshipSpecialtyStart DateEnd Date Ottoniel Arias MD [address], [place] [address] [facility] - [facility]11/04/24Team MemberRelationshipSpecialtyStart Date End Date Ottoniel Arias ND [address], [place] [address] PCP - [facility]04/25/25 Team Status: Active Member Role Status Dates Ottoniel Arias MD Primary Care Provider Active S tart: May 30, 2025 Donavon Montalvo MDAttjayshree ProviderActiveStart: May 30, 2025 Team Status: Inactive Member Role Status Dates Francisco Chaidez PA-C Attending Provider Active St art: June 26, 2025 End: June 26, 2025Team MemberRelationshipSpecialtyStart DateEnd Date Ottoniel Arias ND [address], [place] [address] PCP - GeneralFamily Medicine04/25/25 Scheduled Active and [...] * 1615 (Due - Provider: Samantha Walden [facility]) oseltamivir (TAMIFLU) capsule 30 mg 30 [...] less than 70 mg/dL, Starting on 11/05/24 [id number], If patient conscious and taking PO. If [...] BE BASED ON THE PRIMARY CLINICAL RECORDS. [employer] provides no warranty or guarantee of the accuracy or completeness of information in this document.
[2025-08-27 11:12] LABS: Anion Gap 12.6; Blood Urea Nitrogen 15.0 mg/dL (7.0-18.0); Calcium 8.8 mg/dL (8.5-10.1); Carbon Dioxide 31.4 mmol/L (21.0-32.0); Chloride 99 mmol/L (98-107); Estimated GFR (African America >60 (>=60 mL/min/1.73m^2); Estimated GFR (Non-African Ame 59 (>=60 mL/min/1.73m^2); Glucose 75 mg/dL (74-106); Potassium 3.0 mmol/L (3.5-5.1); Sodium 140 mmol/L (136-145)
--- NOTE | 2025-08-27 11:25 | ED.RECABL1 ---
HPI - Recheck/Abnormal Lab/Rx General Chief Complaint: Recheck/Abnormal Lab/Rx Stated Complaint: LAB WORK RETAKE Time Seen by Provider: 08/27/25 10:20 Source: patient Limitations: no limitations History of Present Illness HPI narrative: The patient is a 25-year-old female presenting to the ER today after she was evaluated yesterday for acute kidney injury and worsening of her renal function after she has been nauseous and vomiting for the last few days the patient is coming today as a reevaluation as she was instructed per yesterday, is feeling much better she has been tolerating p.o. intake and she is denying any nausea or vomiting at the moment Related Data Home Medications ?Medication ?Instructions ?Recorded ?Confirmed paroxetine HCl 40 mg tablet 40 mg PO DAILY 07/01/24 08/26/25 buspirone 7.5 mg tablet 7.5 mg PO BID 06/26/25 08/26/25 levetiracetam 500 mg tablet 1,500 mg PO Q12H 06/26/25 08/26/25 venlafaxine 37.5 mg 37.5 mg PO DAILY 06/26/25 08/26/25 capsule,extended release 24 hr aripiprazole 5 mg tablet 5 mg PO DAILY 08/26/25 08/26/25 doxepin 10 mg capsule 10 mg PO DAILY 08/26/25 08/26/25 lacosamide 100 mg tablet 100 mg PO BID 08/26/25 08/26/25 Previous Rx's ?Medication ?Instructions ?Recorded potassium chloride 10 mEq 10 meq PO BID 4 days #8 tabs 06/26/25 tablet,extended release famotidine 20 mg tablet (Pepcid) 20 mg PO BID #20 tabs 08/26/25 ondansetron 4 mg disintegrating 4 mg PO Q8H PRN nausea and 08/26/25 tablet vomiting 4 days #20 tabs pantoprazole 40 mg tablet,delayed 40 mg PO DAILY #30 tabs 08/26/25 release (Protonix) potassium bicarbonate-citric acid 20 meq PO BID 3 days #6 ea 08/26/25 20 mEq effervescent tablet Allergies Allergy/AdvReac Type Severity Reaction Status Date / Time No Known Drug Allergies Allergy Verified 08/27/25 10:30 Review of Systems ROS Status of ROS 10 or more systems reviewed and unremarkable except as noted in history and below PFSH PFSH Social History Little interest or pleasure in doing things: not at all Feeling down, depressed, or hopeless: not at all Exam Narrative Exam Narrative: Nurses notes and vital signs reviewed and patient is not hypoxic. General: Well-appearing and in no apparent distress. Skin: Warm, dry, no pallor noted. No rash. Head: Normocephalic, atraumatic. Neck: Supple, non-tender. Eye: Pupils are equal, round and EOMI. No scleral icterus. Ears, Nose, Mouth, and Throat: TM are clear, no nasal mucosal hypertrophy. Oral mucosa is moist, no posterior oropharynx erythema, uvula is mid-line Cardiovascular: Regular Rate and Rhythm without murmur, gallop or rub. Respiratory: No accessory muscle use or respiratory distress. Lungs are clear to auscultation, no wheezing, rales or rhonchi Chest Wall: no tenderness Back: No midline thoracic or lumbar vertebral tenderness. No CVA tenderness Musculoskeletal: normal ROM, no calf or popliteal tenderness, no lower extremity edema/swelling GI: Abdomen is soft, non-distended. Normal bowel sounds. No masses appreciated. No tenderness to palpation. No rebound, guarding, or rigidity noted. Neurological: A&O x4. No cranial nerve dysfunction observed. No truncal ataxia. Moves all extremities. Sensation intact. Psychiatric: Cooperative and interactive. Normal mood and affect. Constitutional Vital Signs, click to edit/add: Last Vital Signs Temp 98.3 F 08/27/25 10:28 Pulse 60 08/27/25 11:31 Resp 16 08/27/25 11:31 BP 114/79 08/27/25 11:31 Pulse Ox 100 08/27/25 11:31 O2 Del Method Room Air 08/27/25 11:31 Course Vital Signs Vital signs: Vital Signs Temperature 98.3 F 08/27/25 10:28 Pulse Rate 87 08/27/25 10:28 Respiratory Rate 18 08/27/25 10:28 Blood Pressure 105/76 08/27/25 10:28 Pulse Oximetry 100 08/27/25 10:28 Oxygen Delivery Method Room Air 08/27/25 10:28 Temperature 98.3 F 08/27/25 10:28 Pulse Rate 60 08/27/25 11:31 Respiratory Rate 16 08/27/25 11:31 Blood Pressure 114/79 08/27/25 11:31 Pulse Oximetry 100 08/27/25 11:31 Oxygen Delivery Method Room Air 08/27/25 11:31 MDM - Recheck/Abnormal Lab/Rx MDM Narrative Medical decision making narrative: This is a follow-up visit as the patient yesterday signed AMA and did not want to be admitted after she had multiple visits before that with deterioration with home care no acute pathology at the moment and her blood workup did show improvement of her kidney function and her potassium still at 3 but she is still have to continue taking p.o. potassium that she was advised and prescribed The patient to follow-up with the primary care within 2 to 3 days and to come back to the ER in case of any worsening of the current symptoms or any new symptoms or concerns Lab Data Labs: Lab Results 08/27/25 Range/Units 10:42 Sodium 140 (136-145) mmol/L Potassium 3.0 L (3.5-5.1) mmol/L Chloride 99 (98-107) mmol/L Carbon Dioxide 31.4 (21.0-32.0) mmol/L Anion Gap 12.6 BUN 15.0 (7.0-18.0) mg/dL Creatinine 1.13 H (0.55-1.02) mg/dL Est GFR ( Amer) >60 (>=60 mL/min/1.73m^2) Est GFR (Non-Af Amer) 59 L (>=60 mL/min/1.73m^2) BUN/Creatinine Ratio 13.3 Glucose 75 (74-106) mg/dL Calcium 8.8 (8.5-10.1) mg/dL Discharge Plan Discharge Chief Complaint: Recheck/Abnormal Lab/Rx Clinical Impression: Hypokalemia, RAKESH (acute kidney injury) Patient Disposition: Home, Self-Care Time of Disposition Decision: 11:25 Condition: Good Prescriptions / Home Meds: No Action paroxetine HCl 40 mg tablet 40 mg PO DAILY aripiprazole 5 mg tablet 5 mg PO DAILY doxepin 10 mg capsule 10 mg PO DAILY lacosamide 100 mg tablet 100 mg PO BID famotidine [Pepcid] 20 mg tablet 20 mg PO BID Qty: 20 0RF pantoprazole [Protonix] 40 mg tablet,delayed release (DR/EC) 40 mg PO DAILY Qty: 30 0RF ondansetron 4 mg tablet,disintegrating 4 mg PO Q8H PRN (Reason: nausea and vomiting) 4 Days Qty: 20 0RF potassium bicarb-citric acid 20 mEq tablet, effervescent 20 meq PO BID 3 Days Qty: 6 0RF buspirone 7.5 mg tablet 7.5 mg PO BID levetiracetam 500 mg tablet 1,500 mg PO Q12H venlafaxine 37.5 mg capsule,extended release 24hr 37.5 mg PO DAILY potassium chloride 10 mEq tablet extended release 10 meq PO BID 4 Days Qty: 8 0RF Rx Instructions: recheck potassium in 4 days Print Language: Salvadorean Instructions: Acute Kidney Injury (DC), Hypokalemia (ED) Referrals: Russ Arias ND [Primary Care Provider] - 1 week Discharge Date/Time: 08/27/25 11:33
[2025-08-27 11:31] VITALS: BP 114/79; PULSE 60; O2SAT 100
== END 2025-08-27 11:33 | disposition home or self-care (01) ==
PROVIDERS: Emergency Provider Emergency Medicine; PCP Student in an Organized Health Care Education/Training Program
DX: N17.9 Acute kidney failure, unspecified (principal); E87.6 Hypokalemia
CPT/HCPCS: 36415; 80048; 99283